=== PATIENT | female | born 1945 | race Caucasian/White ===

== ENCOUNTER 2019-08-13 09:04 | Outpatient (CLI) | payer MEDICARE, SELFPAY ==
--- NOTE | ~2019-08-13 | MM_ITS ---
EXAMINATION: MM screening [facility] BI w yesika HISTORY: Screening mammogram TECHNIQUE: Craniocaudal and mediolateral oblique 3-D tomosynthesis images were obtained and synthetic 2-D images were generated. CAD analysis was submitted and interpreted. COMPARISON: Comparison to multiple prior studies sequentially, with oldest reviewed study dated 12/02. BREAST PARENCHYMAL COMPOSITION: There are scattered areas of fibroglandular density. FINDINGS: There is no evidence of suspicious mass, calcification, or architectural distortion to sugg est malignancy in either breast. There has been no suspicious interval change. IMPRESSION: 1. No mammographic evidence of malignancy. 2. Recommend routine screening mammography in one year. BI-RADS Category 1: Negative Reviewed, dictated and finalized at location A. ER
== END 2019-08-13 09:05 | disposition home or self-care (01) ==
LOC: ANHIMG 09:07
PROVIDERS: PCP Family Medicine; Visit Provider Nurse Practitioner
DX: Z12.31 Encounter for screening mammogram for malignant neoplasm of breast (principal)
CPT/HCPCS: 77063; 77067

== ENCOUNTER 2019-08-21 08:34 | Outpatient (CLI) | payer MEDICARE, SELFPAY ==
--- NOTE | ~2019-08-21 | US_ITS ---
EXAMINATION: US right upper quadrant DATE: 08/21/2019 09:06 INDICATION: Right upper quadrant abdominal pain. TECHNIQUE: Multiple grayscale and Doppler ultrasound images of the abdomen were obtained. COMPARISON: Ultrasound 05/08/2017 FINDINGS: The visualized portions of the head, body, and tail of the pancreas are normal. The liver i s normal without focal lesion. There is normal flow in main portal vein. The gallbladder is normal in size. No gallstones or gallbladder wall thickening. There was no sonographic Shabazz sign. The common duct is normal and measures 3 mm. IMPRESSION: 1. Normal right upper quadrant ultrasound. Reviewed, dictated and finalized at location A. DESIGNER
[2019-08-21 10:37] LABS: Basophils Percent Auto 0.4 % (0.2-1.2); Eosinophils Percent Auto 0.2 % (0-4.4); Hematocrit 33.2 % (37.0-47.0); Hemoglobin 10.7 g/dL (12.0-15.0); Immature Granulocyte Percent A 1.9 % (0-0.5); Lymphocytes Absolute Auto 1.71 K/mm3 (0.9-3.2); Lymphocytes Percent Auto 31.8 % (18.3-44.2); Mean Corpuscular HGB Conc 32.2 g/dl (32-36); Mean Corpuscular Hemoglobin 29.6 pg (26-34); Mean Corpuscular Volume 91.7 fl (80-100); Mean Platelet Volume 10.8 fl (7.4-10.4); Monocytes Absolute Auto 1.7 K/mm3 (0.1-0.6); Monocytes Percent Auto 32.3 % (2.6-8.5); Neutrophils Absolute Auto 1.8 K/mm3 (1.3-6.7); Neutrophils Percent Auto 33.4 % (45.5-73.1); Platelet Count Result 215 k/mm3 (150-375); Red Blood Count 3.62 M/mm3 (4.2-5.4); Red Cell Distribution Width 13.7 % (11.5-14.5); White Blood Count 5.4 K/mm3 (4.5-10.0)
[2019-08-21 10:54] LABS: Alanine Aminotransferase 13 U/L (4-35); Albumin Level 4.1 g/dL (3.5-5.1); Alkaline Phosphatase 74 U/L (38-126); Aspartate Amino Transferase 21 U/L (14-36); Bilirubin,Total 0.5 mg/dL (0.2-1.3); Blood Urea Nitrogen 24 mg/dL (7-17); Calcium 9.3 mg/dL (8.4-10.2); Carbon Dioxide 30 mmol/L (22-30); Chloride 104 mmol/L (98-107); Estimated Glomerular Filt Rate > 60; Glucose 98 mg/dL (65-105); Potassium 4.2 mmol/L (3.4-5.0); Sodium 140 mmol/L (137-145)
== END 2019-08-21 08:35 | disposition home or self-care (01) ==
PROVIDERS: PCP Family Medicine; Visit Provider Nurse Practitioner Family
DX: R10.11 Right upper quadrant pain (principal)
CPT/HCPCS: 36415; 76705; 80053; 85025

== ENCOUNTER 2020-01-03 08:39 | Outpatient (CLI) | payer MEDICARE, SELFPAY ==
[2020-01-03 09:02] LABS: Basophils Percent Auto 0.5 % (0.2-1.2); Eosinophils Percent Auto 0.4 % (0-4.4); Hematocrit 36.2 % (37.0-47.0); Immature Granulocyte Absolute 0.05 K/mm3 (0.00-0.031); Immature Granulocyte Percent A 0.9 % (0-0.5); Lymphocytes Percent Auto 32.5 % (18.3-44.2); Mean Corpuscular HGB Conc 33.1 g/dl (32-36); Mean Corpuscular Hemoglobin 30.1 pg (26-34); Mean Corpuscular Volume 90.7 fl (80-100); Mean Platelet Volume 10.6 fl (7.4-10.4); Monocytes Absolute Auto 1.9 K/mm3 (0.1-0.6); Monocytes Percent Auto 33.4 % (2.6-8.5); Neutrophils Absolute Auto 1.8 K/mm3 (1.3-6.7); Neutrophils Percent Auto 32.3 % (45.5-73.1); Platelet Count Result 223 k/mm3 (150-375); Red Blood Count 3.99 M/mm3 (4.2-5.4); Red Cell Distribution Width 13.5 % (11.5-14.5); White Blood Count 5.5 K/mm3 (4.5-10.0)
[2020-01-03 09:20] LABS: Cholesterol 172 mg/dL (0-200); HDL Direct 48 mg/dL; Triglycerides 62 mg/dL (<150)
[2020-01-03 09:27] LABS: Immunoglobulin G 1149 mg/dL (700-1600)
[2020-01-03 09:32] LABS: LDL Cholesterol Direct 98 mg/dL
[2020-01-07 20:56] LABS: Beta-2-Microglobulin 2.47 mg/L (<=2.51)
[2020-01-07 21:41] LABS: Kappa\\Lambda Light Chains 0.25 (0.26-1.65); Lambda Light Chain 66.8 mg/L (5.7-26.3)
[2020-01-08 23:00] LABS: Abnormal Protein Band 1 0.6 g/dL; Albumin 4.2 g/dL (3.8-4.8); Alpha 1 Globulin 0.3 g/dL (0.2-0.3); Alpha 2 Globulin 0.8 g/dL (0.5-0.9); Beta 1 Globulin 0.5 g/dL (0.4-0.6); Gamma Globulin 1.1 g/dL (0.8-1.7); Protein, Total 7.3 g/dL (6.1-8.1)
== END 2020-01-03 08:40 | disposition home or self-care (01) ==
PROVIDERS: PCP Family Medicine; Referring Provider Internal Medicine Medical Oncology; Visit Provider Nurse Practitioner
DX: D47.2 Monoclonal gammopathy (principal); I10 Essential (primary) hypertension
CPT/HCPCS: 36415; 80061; 82232; 82784; 83883; 84155; 84165; 85025

== ENCOUNTER 2020-05-11 12:29 | Outpatient (NON) | payer MEDICARE, SELFPAY ==
[2020-05-14 17:04] LABS: SARS-CoV-2 RNA PCR Negative
== END 2020-05-11 12:30 ==
LOC: ANHCOVIDDT 12:31
PROVIDERS: PCP Family Medicine; Visit Provider Nurse Practitioner Family
DX: Z20.828 Contact with and (suspected) exposure to other viral communicable diseases (principal)
CPT/HCPCS: 87635; C9803; U0003

== ENCOUNTER → 2020-05-24 15:03 | Outpatient (CLI) | payer MEDICARE, SELFPAY ==
--- NOTE | ~2020-05-24 | XR_ITS ---
XR chest 2V DATE: 05/24/2020 15:25 INDICATION: Shortness of breath TECHNIQUE: PA and lateral views COMPARISON: None FINDINGS: There are ill- defined infiltrates and/or fibrotic changes overlying the right upper lung a nd left mid and both lower lung zones. Differential diagnosis includes bilateral pneumonia, bilateral scarring. Comparison with any prior available chest radiographs is recommended to differentiate acut e from chronic changes. If not available, consider CT thorax examination. Normal heart size. Aortic arch calcification and mild aortic unfolding. There is asymmetric prominence of the left hilar area which may be due to overlying infiltrate, altho ugh left hilar mass lesion or adenopathy or superimposed pulmonary mass lesion cannot be excluded. If this appearance is a new finding since prior radiographs or a prior radiograph are not available, CT thorax would be helpful to exclude mass lesion or lymphadenopathy. No pleural effusion or pneumothorax. IMPRESSION: Bilateral pulmonary infiltrates and/or fibrotic change; cannot exclude left hilar mass or adenopathy or superimposed lung mass. CT thorax examination is recommended if prior radiograph are n ot available for comparison Reviewed, dictated and finalized at location A. NT SUPPORT PROFESSIONAL IMPRESSION: Bilateral pulmonary infiltrates and/or fibrotic change; cannot excl ude left hilar mass or adenopathy or superimposed lung mass. CT thorax examinat ion is recommended if prior radiograph are not available for comparison
== END ==
PROVIDERS: PCP Family Medicine; Visit Provider Nurse Practitioner Family
DX: R06.02 Shortness of breath (principal); I70.0 Atherosclerosis of aorta
CPT/HCPCS: 71046

== ENCOUNTER → 2020-05-27 14:16 | Outpatient (CLI) | payer MEDICARE, SELFPAY ==
--- NOTE | ~2020-05-27 | CT_ITS ---
EXAMINATION: CT chest w con DATE: 05/27/2020 14:46 INDICATION: Shortness of breath, abnormal chest radiograph TECHNIQUE: Transaxial computed tomographic images of the chest were obtained after the administration of 75 cc of Omnipaque 350 intravenous contrast. The dose-length product (DLP) was 187.34 mGy-cm. Ite rative reconstruction was used. COMPARISON: Chest x-ray, 05/24/2020 FINDINGS: There is a 3.5 x 2.3 cm irregular mass of the right upper lobe with internal air bronchogra ms. There are large areas of groundglass opacity in the left upper lobe and bilateral lower lobes. Th eir is no pleural effusion or pneumothorax. No pathologically enlarged thoracic lymph nodes are ident ified. The heart size is normal. Calcified coronary artery atherosclerosis is noted. IMPRESSION: 1. Right upper lobe mass and large areas of groundglass opacity in the lower lobes and left upper lob e. Findings could reflect multifocal pneumonia. Would recommend follow-up CT in one month and if find ings are unchanged, right upper lobe biopsy would be recommended as malignancy can have a similar maurice earance. Reviewed, dictated and finalized at location A. FACTURING LEAD IMPRESSION: 1. Right upper lobe mass and large areas of groundglass opacity in the lower lo bes and left upper lobe. Findings could reflect multifocal pneumonia. Would rec ommend follow-up CT in one month and if findings are unchanged, right upper lob e biopsy would be recommended as malignancy can have a similar appearance.
[2020-05-27 14:35] LABS: Estimated Glomerular Filt Rate > 60
== END ==
PROVIDERS: PCP Family Medicine; Visit Provider Nurse Practitioner Family
DX: R91.8 Other nonspecific abnormal finding of lung field (principal)
CPT/HCPCS: 71260; Q9967

== ENCOUNTER 2020-06-01 07:28 | Outpatient (CLI) | payer MEDICARE, SELFPAY ==
--- NOTE | ~2020-06-01 | US_ITS ---
EXAMINATION: US carotid duplex BI DATE: 06/01/2020 08:14 INDICATION: Carotid artery stenosis and occlusion TECHNIQUE: Grayscale, color Doppler, and pulsed Doppler images of the cervical carotid arteries were obtained. The degree of vessel stenosis is placed in one of the following categories: normal, <50%, 5 0-69%, >=70% but less than near-occlusion, near-occlusion, or total occlusion. Note that percent sten osis relative to normal distal artery lumen diameter is indirectly measured from velocity measurement s as described by Abimael, et al. Radiology 2003; [id number]:340-346. COMPARISON: None. FINDINGS: RIGHT: The right common carotid artery (CCA) peak systolic velocity (PSV) is 87 cm/s. The right internal car otid artery (ICA) PSV is 123 cm/s. The right ICA end-diastolic velocity (EDV) is 25 cm/s. The right I CA/CCA PSV ratio is 1.4. Grayscale and color Doppler images yield an estimate of <50% diameter reduct ion from plaque in the ICA. The external carotid artery (ECA) PSV is 116 cm/s. There is antegrade jaylon w in the right vertebral artery. LEFT: The left CCA PSV is 112 cm/s. The left ICA PSV is 165 cm/s. The left ICA EDV is 35 cm/s. The left ICA /CCA PSV ratio is 1.5. Grayscale and color Doppler images yield an estimate of 50-69% diameter reduct ion from plaque in the ICA. The ECA PSV is 279 cm/s. There is antegrade flow in the left vertebral ar jose c. IMPRESSION: 1. <50% stenosis in the right internal carotid artery. 2. 50-69% stenosis in the left internal carotid artery. Reviewed, dictated and finalized at location B. TARY AIDE
== END 2020-06-01 07:29 | disposition home or self-care (01) ==
PROVIDERS: PCP Family Medicine; Visit Provider Nurse Practitioner Family
DX: I65.22 Occlusion and stenosis of left carotid artery (principal)
CPT/HCPCS: 93880

== ENCOUNTER → 2020-07-05 14:24 | Outpatient (CLI) | payer MEDICARE, SELFPAY ==
--- NOTE | ~2020-07-05 | CT_ITS ---
EXAMINATION: CT chest w con DATE: 07/05/2020 15:13 INDICATION: Other nonspecific abnormal finding of the lung field TECHNIQUE: Transaxial computed tomographic images of the chest were obtained after the administration of 75 cc of Omnipaque 350 intravenous contrast. The dose-length product (DLP) was 154.91 mGy-cm. Ite rative reconstruction was used. COMPARISON: 05/27/2020 FINDINGS: There is a persistent 3.5 x 2.6 cm irregular mass of the right upper lobe. Previously descr ibed areas of groundglass opacity in the lower lobes and left upper lobe have nearly completely resol abram. There is no pleural effusion or pneumothorax. No pathologically enlarged thoracic lymph nodes ar e identified. The heart size is normal. There is mild thoracic spondylosis. Calcified coronary artery atherosclerosis is noted. There is a 3.6 cm cyst of the left kidney upper pole. IMPRESSION: 1. Persistent right upper lobe mass concerning for primary bronchogenic carcinoma. CT-guided biopsy i s recommended. 2. Improving groundglass opacities of the lungs, consistent with resolving pneumonia. Reviewed, dictated and finalized at location A. DATION RELATIONS MANAGER IMPRESSION: 1. Persistent right upper lobe mass concerning for primary bronchogenic carcino ma. CT-guided biopsy is recommended. 2. Improving groundglass opacities of the lungs, consistent with resolving pneu monia.
[2020-07-05 15:02] LABS: Estimated Glomerular Filt Rate 54
== END ==
PROVIDERS: PCP Family Medicine; Visit Provider Nurse Practitioner Family
DX: R91.8 Other nonspecific abnormal finding of lung field (principal)
CPT/HCPCS: 71260; Q9967

== ENCOUNTER 2020-07-16 00:26 | Outpatient (CLI) | payer MEDICARE, SELFPAY ==
[2020-07-16 19:17] LABS: SARS-CoV-2 RNA PCR Negative
== END 2020-07-16 00:27 | disposition home or self-care (01) ==
LOC: ANHCOVIDDT 00:28
PROVIDERS: PCP Family Medicine; Visit Provider Nurse Practitioner Family
DX: R91.8 Other nonspecific abnormal finding of lung field (principal); Z20.822 Contact with and (suspected) exposure to COVID-19
CPT/HCPCS: C9803; U0003; U0005

== ENCOUNTER 2020-07-19 09:11 | Outpatient (CLI) | payer MEDICARE, SELFPAY ==
[2020-07-16 09:34] VITALS: BMI 26.2
[2020-07-19] VITALS (9 sets, daily range): BP systolic 132–151; BP diastolic 53–70; PULSE 62–84; RESP 14–16; O2SAT 97–100
--- NOTE | ~2020-07-19 | XR_ITS ---
EXAMINATION: XR chest 1V portable DATE: 07/19/2020 14:07 INDICATION: Right lung upper lobe mass status post percutaneous biopsy. TECHNIQUE: A single frontal view of the chest was obtained. COMPARISON: Chest single view at 12:01 PM FINDINGS: There is a mass in right lung upper lobe. No pleural effusion or pneumothorax. The heart si ze is normal. IMPRESSION: 1. Mass in right lung upper lobe suspicious for primary bronchogenic carcinoma. Reviewed, dictated and finalized at location A. TROTHERAPIST
--- NOTE | ~2020-07-19 | XR_ITS ---
XR chest 1V portable DATE: 07/19/2020 12:06 INDICATION: Post image guided lung biopsy TECHNIQUE: Portable upright AP chest [address]-guided percutaneous needle biopsy of the rig ht upper lobe mass COMPARISON: Numerous CDT biopsy lung imaging 05/24/2022 view chest FINDINGS: Again noted is an abnormal asymmetric opacity overlying the right upper lobe. No pneumothor ax or pleural fluid is evident post CT-guided percutaneous biopsy of the lung. Normal heart size. Aortic calcification and mild unfolding. Diffuse osteopenia. IMPRESSION: No evidence of iatrogenic pneumothorax one hour post CT-guided percutaneous needle biopsy of right upper lobe mass Reviewed, dictated and finalized at location A. IO HAND IMPRESSION: No evidence of iatrogenic pneumothorax one hour post CT-guided perc utaneous needle biopsy of right upper lobe mass
--- NOTE | ~2020-07-19 | XR_ITS ---
EXAMINATION: XR chest 1V DATE: 07/19/2020 10:56 INDICATION: Right lung mass status post percutaneous biopsy. TECHNIQUE: A single frontal view of the chest was obtained. COMPARISON: Chest CT 07/05/2020 FINDINGS: There is a mass in right lung upper lobe. No pleural effusion or pneumothorax. The heart si ze is normal. IMPRESSION: 1. Mass in right lung upper lobe suspicious for primary bronchogenic carcinoma. Reviewed, dictated and finalized at location A. HER
--- NOTE | ~2020-07-19 | CT_ITS ---
EXAMINATION: CT biopsy lung w/imaging DATE: 07/19/2020 10:50 INDICATION: Right lung mass. TECHNIQUE: The procedure including the risks, benefits, and alternatives and possibility of chest tub e placement were discussed with the patient. Risks discussed included infection, approximately 1/20 r isk of symptomatic hemorrhage beyond mild hemoptysis, approximately 1/3 risk of pneumothorax, approxi mately 1/10 risk of pneumothorax severe enough to warrant chest tube placement, and rarely . The patient understood the risks and agreed to proceed. The patient was placed supine. The skin overlyi ng the right chest was prepped and draped in sterile fashion. Anesthetic was administered with 1% li docaine subcutaneously. A 19 gauge outer needle was advanced under CT guidance to the lesion of inte rest. A 20 gauge core biopsy needle was then used to obtain 3 core biopsy specimens. The needle was r emoved and the entry site was cleaned and dressed. The mA was adjusted according to patient size. Ite rative reconstruction technique was employed. The dose-length product was 100.11 mGy-cm. There were no immediate complications. FINDINGS: CT images demonstrate the outer needle tip adjacent to a 3.2 x 2.3 cm mass in right lung up per lobe. IMPRESSION: 1. CT-guided core needle biopsy of a mass in right lung upper lobe. Reviewed, dictated and finalized at location A. UREMENT COST COORDINATOR
[2020-07-19 09:35] LABS: Mean Platelet Volume 10.4 fl (7.4-10.4); Platelet Count Result 230 k/mm3 (150-375)
[2020-07-19 09:49] LABS: Prothrombin Time 13.4 Seconds (11.1-14.7)
--- NOTE | 2020-07-19 15:15 | SUR.PHASEII ---
[address] FORTE ON PT CONDITON AND FINAL CHEST XRAY. PT VITAL SIGNS STABLE, NO PAIN, BREATHING IS GOOD ON ROOM AIR. PER DR FORTE PT IS OK FOR DISCHARGE
== END 2020-07-19 14:55 | disposition home or self-care (01) ==
PROVIDERS: Radiology Diagnostic Radiology; PCP Family Medicine; Visit Provider Nurse Practitioner Family
DX: R91.8 Other nonspecific abnormal finding of lung field (principal); C34.11 Malignant neoplasm of upper lobe, right bronchus or lung
CPT/HCPCS: 32408; 36415; 71045; 85049; 85610; 88305

== ENCOUNTER 2020-07-29 16:10 | Outpatient (CLI) | payer MEDICARE, SELFPAY ==
[2020-07-29 17:04] LABS: Hematocrit 33.3 % (37.0-47.0); Mean Corpuscular Hemoglobin 30.3 pg (26-34); Mean Corpuscular Volume 91.7 fl (80-100); Mean Platelet Volume 10.6 fl (7.4-10.4); Platelet Count Result 217 k/mm3 (150-375); Red Blood Count 3.63 M/mm3 (4.2-5.4); Red Cell Distribution Width 13.3 % (11.5-14.5)
[2020-07-29 17:18] LABS: Alanine Aminotransferase 12 U/L (4-35); Albumin Level 4.3 g/dL (3.5-5.1); Alkaline Phosphatase 76 U/L (38-126); Anion Gap 8 mmol/L (8-16); Aspartate Amino Transferase 24 U/L (14-36); Bilirubin,Total 0.4 mg/dL (0.2-1.3); Blood Urea Nitrogen 20 mg/dL (7-17); Calcium 9.3 mg/dL (8.4-10.2); Carbon Dioxide 30 mmol/L (22-30); Chloride 105 mmol/L (98-107); Estimated Glomerular Filt Rate > 60; Glucose 97 mg/dL (65-105); Potassium 4.1 mmol/L (3.4-5.0); Sodium 143 mmol/L (137-145)
[2020-07-29 17:27] LABS: Band Neutrophils Percent 2 % (0-6); Lymphocytes Absolute Manual 2.64 K/mm3 (1.1-4.5); Monocytes Absolute Manual 1.08 K/mm3 (0.1-0.90); Monocytes Percent Manual 18 % (3-9); Neutrophils Absolute Manual 2.28 K/mm3 (1.7-7.2); Neutrophils Percent Manual 36 % (46-73); Platelet Estimate Adequate (Adequate); Total Cells Counted 100
== END 2020-07-29 16:11 | disposition home or self-care (01) ==
LOC: ANHLAB 16:14
PROVIDERS: PCP Family Medicine; Visit Provider Internal Medicine Hematology & Oncology
DX: C34.91 Malignant neoplasm of unspecified part of right bronchus or lung (principal)
CPT/HCPCS: 36415; 80053; 85025

== ENCOUNTER 2020-08-02 08:43 | Outpatient (CLI) | payer MEDICARE, SELFPAY ==
--- NOTE | 2020-08-09 12:50 | WPDPFTINT ---
PFT Interpretation This is a pulmonary function test with pre and post-bronchodilator spirometry, plethysmography and diffusing capacity. The test was performed and results interpreted in accordance with the 2019 and 2005 ATS/ERS Task Force guidelines respectively using the Filiberto/Geri reference equations. Findings: Spirometry: The contour of the inspiratory and expiratory flow tracing are normal. The pre bronchodilator FVC is 2.63 L, 102% predicted. The FEV1 pre bronchodilator FEV1 is 1.89 L, 107% predicted. The FEV1: FVC ratio 72%. The post bronchodilator FVC is 2.54 L, representing a 3% decrease. The post bronchodilator FEV1 is 1.64 L, representing a 13% decrease. Plethysmography: The total lung capacity is 3.57 L, 78% predicted. The functional residual capacity is 0.80 L, 31% predicted. The residual volume is 0.78 L, 41% predicted. Diffusing capacity: The absolute diffusion capacity is 11.9, 66% predicted. The diffusing capacity corrected for alveolar volume is 3.18, 92% predicted. Impression: There is a mild restrictive ventilatory abnormality with a normal FEV1. The spirometry is normal without evidence of an obstructive abnormality. There is no significant improvement after inhaling a single dose of albuterol. The absolute diffusing capacity is mildly decreased and normalizes when corrected for alveolar volume. There are no prior studies for comparison
== END 2020-08-02 08:44 | disposition home or self-care (01) ==
PROVIDERS: PCP Family Medicine; Visit Provider Internal Medicine Hematology & Oncology
DX: C34.91 Malignant neoplasm of unspecified part of right bronchus or lung (principal)
CPT/HCPCS: 94060; 94726; 94729

== ENCOUNTER 2020-08-05 13:33 | Outpatient (CLI) | payer MEDICARE, OTHER, SELFPAY ==
--- NOTE | ~2020-08-05 | PE_ITS ---
EXAMINATION: PET skull to mid thigh DATE: 08/05/2020 15:28 INDICATION: Malignant neoplasm of the right upper lobe TECHNIQUE: Blood glucose level was 102 mg/dL. 9.24 mCi of 18-fluorodeoxyglucose (18-FDG) was administ ered i.v. Low dose computed tomography (CT) images were acquired from the base of the brain to the pr oximal thighs for attenuation correction and anatomic localization. Positron emission tomography (PET ) images were acquired in the same distribution beginning 52 minutes after injection. The dose-length product (DLP) was 458.08 mGy-cm. COMPARISON: CT, 07/05/2020 FINDINGS: Head/neck: No abnormal FDG uptake is identified. FDG uptake in the oral cavity without suspicious CT correlate is likely physiologic. There are no pathologically enlarged cervical lymph nodes. Chest: There is a 3.5 x 2.3 cm irregular mass of the right upper lobe with abnormal FDG uptake and PALACIO V max of 2.2. No additional suspicious lung mass or nodule is identified. There is no pleural effusio n or pneumothorax. No pathologically enlarged thoracic lymph nodes are identified. The heart size is normal. Calcified coronary artery atherosclerosis is noted. Abdomen/pelvis/proximal thighs: No abnormal FDG uptake is identified. Physiologic FDG activity is pre sent in the bowel and urinary tract. The liver, spleen, pancreas, gallbladder, and adrenal glands are normal. There is a 3.5 cm cyst of the left kidney upper pole. No pathologically enlarged abdominal o r pelvic lymph nodes are identified. There is no free intraperitoneal gas or evidence of bowel obstru ction. There is calcified atherosclerosis of the aorta and many of the other arteries. Musculoskeletal: No abnormal FDG uptake is identified. There is severe cervical spondylosis and sever e lumbar spondylosis at L5-S1. There is moderate thoracic and thoracolumbar spondylosis. IMPRESSION: 1. Right upper lobe mass with abnormal FDG uptake, consistent with biopsy-proven well-differentiated adenocarcinoma. No evidence of metastatic disease. Reviewed, dictated and finalized at location A. OVER RIG OPERATOR IMPRESSION: 1. Right upper lobe mass with abnormal FDG uptake, consistent with biopsy-prove n well-differentiated adenocarcinoma. No evidence of metastatic disease.
[2020-08-05 14:10] LABS: Glucose Point of Care 102 (65-105)
== END 2020-08-05 13:34 | disposition home or self-care (01) ==
PROVIDERS: PCP Family Medicine; Visit Provider Internal Medicine Hematology & Oncology
DX: C34.11 Malignant neoplasm of upper lobe, right bronchus or lung (principal)
CPT/HCPCS: 78815; 82948; A9552

== ENCOUNTER 2020-08-09 09:36 | Outpatient (CLI) | payer MEDICARE, SELFPAY ==
--- NOTE | ~2020-08-09 | MM_ITS ---
EXAMINATION: MM screening [facility] BI w yesika HISTORY: Screening mammogram TECHNIQUE: Craniocaudal and mediolateral oblique 3-D tomosynthesis images were obtained and synthetic 2-D images were generated. CAD analysis was submitted and interpreted. COMPARISON: 08/13/2019, 07/24/2018, 06/29/2017 BREAST PARENCHYMAL COMPOSITION: The breasts are heterogeneously dense, which may obscure small masses . FINDINGS: There is no evidence of suspicious mass, calcification, or architectural distortion to sugg est malignancy in either breast. There has been no suspicious interval change. IMPRESSION: 1. No mammographic evidence of malignancy. 2. Recommend routine screening mammography in one year. BI-RADS Category 1: Negative Reviewed, dictated and finalized at location A. UNTANT
== END 2020-08-09 09:37 | disposition home or self-care (01) ==
LOC: ANHIMG 09:43
PROVIDERS: PCP Family Medicine; Visit Provider Family Medicine
DX: Z12.31 Encounter for screening mammogram for malignant neoplasm of breast (principal)
CPT/HCPCS: 77063; 77067

== ENCOUNTER → 2020-10-23 10:48 | Outpatient (CLI) | payer MEDICARE, SELFPAY ==
--- NOTE | ~2020-10-23 | MR_ITS ---
EXAMINATION: MR lumbar spine wo con DATE: 10/23/2020 11:39 INDICATION: Lumbar radiculopathy. Chronic low back pain. TECHNIQUE: Magnetic resonance imaging (MRI) of the lumbar spine was performed without intravenous con trast. Sequences included sagittal T2-weighted FSE, sagittal T2-weighted FS FSE, sagittal T1-weighted FSE, and axial T2-weighted FSE. COMPARISON: Lumbar spine MRI 03/14/2012 FINDINGS: There is 6 degrees levocurvature of lumbar spine. There is 3 mm anterolisthesis of L4 on L5 and 3 mm retrolisthesis of L5 on S1. There are Schmorl's nodes at most levels. There is moderately d ecreased disc height at L1-L2, mildly decreased disc height from L2-L3 through L4-L5, and severely de creased disc height at L5-S1. There is ligamentum flavum hypertrophy at the disc levels from L1-L2 th rough L4-L5. The distal spinal cord signal intensity is normal. The conus medullaris is at L1. There is a 3.6 cm cyst in left kidney. The following disc levels are specifically discussed: L1-L2: The disc is bulging and has an annular fissure. There is severe right and moderate left facet joint osteoarthritis. There is mild bilateral neural foraminal stenosis. There is mild central canal stenosis. L2-L3: The disc is bulging. There is severe bilateral facet joint osteoarthritis. There is mild bilat eral neural foraminal stenosis. There is mild central canal stenosis. L3-L4: The disc is bulging. There is severe bilateral facet joint osteoarthritis. There is mild bilat eral neural foraminal stenosis. There is mild central canal stenosis. L4-L5: The disc is bulging and has an annular fissure. There is severe bilateral facet joint osteoart hritis. There is moderate bilateral neural foraminal stenosis. There is severe central canal stenosis . L5-S1: The disc is bulging and has an annular fissure. There is severe bilateral facet joint osteoart hritis. There is moderate bilateral neural foraminal stenosis. There is no central canal stenosis. IMPRESSION: 1. Severe lumbar spondylosis, worsened from 03/14/2012. Reviewed, dictated and finalized at location A.
== END ==
PROVIDERS: PCP Family Medicine; Visit Provider Nurse Practitioner Adult Health
DX: M47.26 Other spondylosis with radiculopathy, lumbar region (principal)
CPT/HCPCS: 72148

== ENCOUNTER 2020-12-01 10:38 | Outpatient (CLI) | payer MEDICARE, SELFPAY ==
[2020-12-01 11:12] LABS: Basophils Percent Auto 0.6 % (0.2-1.2); Eosinophils Absolute Auto 0.1 K/mm3 (0-0.3); Eosinophils Percent Auto 1.1 % (0-4.4); Hematocrit 38.7 % (37.0-47.0); Hemoglobin 12.5 g/dL (12.0-15.0); Immature Granulocyte Absolute 0.06 K/mm3 (0.00-0.031); Immature Granulocyte Percent A 1.1 % (0-0.5); Lymphocytes Absolute Auto 1.74 K/mm3 (0.9-3.2); Lymphocytes Percent Auto 32.1 % (18.3-44.2); Mean Corpuscular HGB Conc 32.3 g/dl (32-36); Mean Corpuscular Hemoglobin 28.9 pg (26-34); Mean Corpuscular Volume 89.4 fl (80-100); Mean Platelet Volume 10.4 fl (7.4-10.4); Neutrophils Absolute Auto 1.6 K/mm3 (1.3-6.7); Neutrophils Percent Auto 29.1 % (45.5-73.1); Platelet Count Result 259 k/mm3 (150-375); Red Blood Count 4.33 M/mm3 (4.2-5.4); Red Cell Distribution Width 13.4 % (11.5-14.5); White Blood Count 5.4 K/mm3 (4.5-10.0)
[2020-12-01 11:22] LABS: Atypical Lymphocytes Present; Platelet Estimate Adequate (Adequate)
[2020-12-01 12:35] LABS: Alanine Aminotransferase 11 U/L (4-35); Albumin Level 4.4 g/dL (3.5-5.1); Alkaline Phosphatase 72 U/L (38-126); Anion Gap 11 mmol/L (8-16); Aspartate Amino Transferase 19 U/L (14-36); Bilirubin,Total 0.5 mg/dL (0.2-1.3); Blood Urea Nitrogen 27 mg/dL (7-17); Calcium 9.8 mg/dL (8.4-10.2); Carbon Dioxide 28 mmol/L (22-30); Chloride 102 mmol/L (98-107); Estimated Glomerular Filt Rate 54; Glucose 113 mg/dL (65-105); Potassium 3.9 mmol/L (3.4-5.0); Sodium 141 mmol/L (137-145)
== END 2020-12-01 10:39 | disposition home or self-care (01) ==
LOC: ANHLAB 10:55
PROVIDERS: PCP Family Medicine; Visit Provider Internal Medicine Hematology & Oncology
DX: C34.11 Malignant neoplasm of upper lobe, right bronchus or lung (principal)
CPT/HCPCS: 36415; 80053; 85025

== ENCOUNTER 2020-12-07 09:36 | Outpatient (CLI) | payer MEDICARE, SELFPAY ==
--- NOTE | ~2020-12-07 | CT_ITS ---
EXAMINATION: CT diagnostic chest w con DATE: 12/07/2020 10:17 INDICATION: Lung cancer TECHNIQUE: Computed tomography (CT) of the chest was performed with 75 cc Omnipaque 350 intravenous c ontrast. The dose-length product was 127.11 mGy-cm. Automated exposure control and iterative reconstr uction technique were employed. COMPARISON: Pet/CT dated 07/19/2020 FINDINGS: Trace right pleural effusion. Heart size is normal. No thoracic lymphadenopathy. No filling defects in the pulmonary arteries. Small hiatal hernia with thickening of the esophagus. There are b ilateral renal cysts. The mass in the right upper lobe is not definitely visualized on the current st udy, possibly surgically absent. Correlate for surgical history. No endobronchial lesions. No endobro nchial lesions. There is a subsolid 4 mm nodule in the right lower lobe, likely benign.. IMPRESSION: 1. Previously visualized right upper lobe mass not identified on current study, possibly surgically a bsent. Clinically correlate. 2: Trace right pleural effusion. 3: Subsolid 4 mm right lower lobe nodule, likely benign. Follow-up CT in 6-12 months recommended. Reviewed, dictated and finalized at location B. IMPRESSION: 1. Previously visualized right upper lobe mass not identified on current study, possibly surgically absent. Clinically correlate. 2: Trace right pleural effusion. 3: Subsolid 4 mm right lower lobe nodule, likely benign. Follow-up CT in 6-12 months recommended.
== END 2020-12-07 09:37 | disposition home or self-care (01) ==
PROVIDERS: PCP Family Medicine; Visit Provider Internal Medicine Hematology & Oncology
DX: C34.11 Malignant neoplasm of upper lobe, right bronchus or lung (principal); R91.1 Solitary pulmonary nodule
CPT/HCPCS: 71260; Q9967

== ENCOUNTER 2021-03-09 08:29 | Outpatient (CLI) | payer MEDICARE, SELFPAY ==
--- NOTE | ~2021-03-09 | CT_ITS ---
EXAMINATION: CT diagnostic chest w con EXAM DATE: 03/09/2021 09:18 INDICATION: Right upper lobe cancer. TECHNIQUE: Spiral CT of the chest following intravenous injection of 75 mL Omnipaque 350. Axial, cor onal and sagittal images of the chest were reviewed. Coronal maximum intensity pixel images of chest reviewed. The dose-length product (DLP) for this examination was 146.52 mGy-cm. The exposure was t ailored according to patient size (auto mA exposure control), and iterative reconstruction (ASIR) was used as additional dose reduction technique. Comparison is made to prior examination from 12/07/2020. FINDINGS: Surgical changes from right upper lobectomy, stable. Subsolid right lower lobe 4 mm nodule unchanged, probably postinfectious. There are no pleural or pericardial effusions. Tracheobronchia l tree is patent. There is no mediastinal, hilar or axillary lymphadenopathy. There is no pneumot horax. Heart normal in size. There is moderate coronary arterial calcification, arterial sclerosi s. Left renal lesion consistent with 3.5 cm cyst. There is thoracic spondylosis without osteoblasti c or osteolytic lesions identified. IMPRESSION: Stable exam. No suspicious findings. Reviewed, dictated and finalized at location B.
[2021-03-09 09:12] LABS: Estimated Glomerular Filt Rate 48
== END 2021-03-09 08:30 | disposition home or self-care (01) ==
PROVIDERS: PCP Family Medicine; Visit Provider Internal Medicine Medical Oncology
DX: C34.11 Malignant neoplasm of upper lobe, right bronchus or lung (principal); N28.1 Cyst of kidney, acquired
CPT/HCPCS: 71260; Q9967

== ENCOUNTER 2021-03-09 09:50 | Outpatient (CLI) | payer MEDICARE, SELFPAY ==
[2021-03-09 10:24] LABS: Basophils Percent Auto 0.5 % (0.2-1.2); Eosinophils Absolute Auto 0.1 K/mm3 (0-0.3); Eosinophils Percent Auto 1.1 % (0-4.4); Hematocrit 31.3 % (37.0-47.0); Hemoglobin 10.5 g/dL (12.0-15.0); Immature Granulocyte Absolute 0.08 K/mm3 (0.00-0.031); Immature Granulocyte Percent A 1.4 % (0-0.5); Lymphocytes Absolute Auto 1.13 K/mm3 (0.9-3.2); Mean Corpuscular HGB Conc 33.5 g/dl (32-36); Mean Corpuscular Volume 89.4 fl (80-100); Mean Platelet Volume 10.1 fl (7.4-10.4); Monocytes Absolute Auto 1.8 K/mm3 (0.1-0.6); Neutrophils Absolute Auto 2.6 K/mm3 (1.3-6.7); Platelet Count Result 233 k/mm3 (150-375); White Blood Count 5.7 K/mm3 (4.5-10.0)
[2021-03-09 12:33] LABS: Alanine Aminotransferase 10 U/L (4-35); Albumin Level 4.6 g/dL (3.5-5.1); Alkaline Phosphatase 90 U/L (38-126); Anion Gap 9 mmol/L (8-16); Aspartate Amino Transferase 44 U/L (14-36); Bilirubin,Total 0.4 mg/dL (0.2-1.3); Blood Urea Nitrogen 24 mg/dL (7-17); Calcium 9.4 mg/dL (8.4-10.2); Carbon Dioxide 33 mmol/L (22-30); Chloride 96 mmol/L (98-107); Estimated Glomerular Filt Rate 54; Glucose 101 mg/dL (65-110); Potassium 3.7 mmol/L (3.4-5.0); Sodium 138 mmol/L (137-145)
[2021-03-09 12:43] LABS: Immunoglobulin A 333 mg/dL (70-400); Immunoglobulin G 1263 mg/dL (700-1600); Immunoglobulin M 69 mg/dL (40-230)
[2021-03-13 06:59] LABS: Abnormal Protein Band 1 0.7 g/dL; Albumin 4.1 g/dL (3.8-4.8); Alpha 1 Globulin 0.3 g/dL (0.2-0.3); Beta 1 Globulin 0.4 g/dL (0.4-0.6); Gamma Globulin 1.1 g/dL (0.8-1.7); Protein, Total 7.3 g/dL (6.1-8.1)
== END 2021-03-09 09:51 | disposition home or self-care (01) ==
LOC: ANHLAB 10:01
PROVIDERS: PCP Family Medicine; Visit Provider Internal Medicine Hematology & Oncology
DX: D47.2 Monoclonal gammopathy (principal)
CPT/HCPCS: 36415; 71260; 80053; 82784; 84155; 84165; 85025; Q9967

== ENCOUNTER 2021-06-13 08:59 | Outpatient (CLI) | payer MEDICARE, SELFPAY ==
--- NOTE | ~2021-06-13 | CT_ITS ---
EXAMINATION: CT diagnostic chest w con DATE: 06/13/2021 10:27 INDICATION: Malignant neoplasm of the upper lobe of the right lung TECHNIQUE: Transaxial computed tomographic images of the chest were obtained after the administration of 75 cc of Omnipaque 350 intravenous contrast. The dose-length product (DLP) was 144.19 mGy-cm. Ite rative reconstruction was used. COMPARISON: 03/09/2021, 12/07/2020 FINDINGS: There are stable changes of right upper lobectomy. There is a stable 4 mm nodule of the rig ht lower lobe on image 84. No new pulmonary nodules are identified. The lungs are free of acute opaci ties. There is no pleural effusion or pneumothorax. No pathologically enlarged thoracic lymph nodes a re identified. The heart size is normal. There is a 3.7 cm cyst of the left kidney. IMPRESSION: 1. Stable changes of right upper lobectomy without evidence of metastatic disease. Reviewed, dictated and finalized at location F. DING MAINTENANCE CUSTODIAN IMPRESSION: 1. Stable changes of right upper lobectomy without evidence of metastatic disea se.
[2021-06-13 10:19] LABS: Estimated Glomerular Filt Rate 54
[2021-06-13 10:47] LABS: Basophils Percent Auto 0.4 % (0.2-1.2); Eosinophils Absolute Auto 0.1 K/mm3 (0-0.3); Eosinophils Percent Auto 1.2 % (0-4.4); Hematocrit 33.6 % (37.0-47.0); Hemoglobin 11.1 g/dL (12.0-15.0); Immature Granulocyte Absolute 0.05 K/mm3 (0.00-0.031); Lymphocytes Percent Auto 24.9 % (18.3-44.2); Mean Corpuscular Hemoglobin 29.8 pg (26-34); Mean Corpuscular Volume 90.3 fl (80-100); Mean Platelet Volume 9.9 fl (7.4-10.4); Monocytes Absolute Auto 1.9 K/mm3 (0.1-0.6); Monocytes Percent Auto 38.8 % (2.6-8.5); Neutrophils Absolute Auto 1.6 K/mm3 (1.3-6.7); Neutrophils Percent Auto 33.7 % (45.5-73.1); Platelet Count Result 261 k/mm3 (150-375); Red Blood Count 3.72 M/mm3 (4.2-5.4); Red Cell Distribution Width 13.1 % (11.5-14.5); White Blood Count 4.8 K/mm3 (4.5-10.0)
[2021-06-13 10:59] LABS: Alanine Aminotransferase 18 U/L (4-35); Albumin Level 4.4 g/dL (3.5-5.1); Alkaline Phosphatase 99 U/L (38-126); Anion Gap 9 mmol/L (8-16); Aspartate Amino Transferase 26 U/L (14-36); Bilirubin,Total 0.3 mg/dL (0.2-1.3); Blood Urea Nitrogen 21 mg/dL (7-17); Calcium 9.5 mg/dL (8.4-10.2); Carbon Dioxide 28 mmol/L (22-30); Chloride 95 mmol/L (98-107); Cholesterol 169 mg/dL (0-200); Estimated Glomerular Filt Rate 54; Glucose 121 mg/dL (65-110); HDL Direct 38 mg/dL; Sodium 132 mmol/L (137-145); Triglycerides 122 mg/dL (<150)
[2021-06-13 11:10] LABS: LDL Cholesterol Direct 94 mg/dL
[2021-06-13 11:16] LABS: Iron 54 ug/dL (37-170)
[2021-06-13 11:25] LABS: Percent Iron Saturation 15 % (20-50)
[2021-06-13 11:36] LABS: Vitamin D 25 Hydroxy 55.5 ng/mL
[2021-06-13 12:10] LABS: Folic Acid 16.4 ng/mL (2.76->20); Vitamin B12 > 1000.0 pg/mL (239-931)
== END 2021-06-13 09:00 | disposition home or self-care (01) ==
PROVIDERS: PCP Family Medicine; Visit Provider Internal Medicine Hematology & Oncology
DX: I48.91 Unspecified atrial fibrillation (principal); I10 Essential (primary) hypertension; E55.9 Vitamin D deficiency, unspecified; R73.9 Hyperglycemia, unspecified; C34.11 Malignant neoplasm of upper lobe, right bronchus or lung; D64.9 Anemia, unspecified
CPT/HCPCS: 36415; 71260; 80053; 80061; 82306; 82607; 82728; 82746; 83036; 83540; 83550; 84443; 85025; Q9967

== ENCOUNTER 2021-08-31 13:23 | Outpatient (CLI) | payer MEDICARE, SELFPAY ==
--- NOTE | ~2021-08-31 | MM_ITS ---
EXAMINATION: MM screening [facility] BI w yesika HISTORY: Screening mammogram TECHNIQUE: Craniocaudal and mediolateral oblique 3-D tomosynthesis images were obtained and synthetic 2-D images were generated. CAD analysis was submitted and interpreted. COMPARISON: 08/09/2020, 08/13/2019, 07/24/2018 BREAST PARENCHYMAL COMPOSITION: There are scattered areas of fibroglandular density. FINDINGS: There is no suspicious mass, calcification, or architectural distortion to suggest malignan cy in either breast. There has been no suspicious interval change. IMPRESSION: 1. No mammographic evidence of malignancy. 2. Recommend routine screening mammography in one year. BI-RADS Category 1: Negative Reviewed, dictated and finalized at location A.
== END 2021-08-31 13:24 | disposition home or self-care (01) ==
LOC: ANHIMG 13:24
PROVIDERS: PCP Family Medicine; Visit Provider Family Medicine
DX: Z12.31 Encounter for screening mammogram for malignant neoplasm of breast (principal)
CPT/HCPCS: 77063; 77067

== ENCOUNTER 2021-09-29 01:16 | Day surgery (SDC) | payer MEDICARE, SELFPAY ==
[2021-09-21 14:14] VITALS: BMI 25.3
[2021-09-29 09:01] VITALS: BP 153/58; PULSE 81; RESP 16; TEMP 36.6; O2SAT 100
[2021-09-29] MEDS: LACTATED RINGERS 1,000 ML 150 ML IV CONT (09:07)
--- NOTE | 2021-09-29 09:52 | WPDANESEPPF ---
Anes - Initial Pre Proc Eval Procedure: Operation Date: 09/29/21 10:15 Proposed Procedures p Esophagogastroduodenoscopy & Screening Colonoscopy - Berny Lim MD Date/Time: 09/29/21 09:52 Surgeon: Berny Lim MD Pre Op Diagnosis: GERD, epigastric pain Patient Data Age: 76 Gender: F Height: 1.61 m Weight: 65.5 kg Last Vital Signs Temp 36.6 C 09/29/21 09:01 Pulse 81 09/29/21 09:01 Resp 16 09/29/21 09:01 BP 153/58 H 09/29/21 09:01 Pulse Ox 100 09/29/21 09:01 Allergies Allergy/AdvReac Type Severity Reaction Status Date / Time Penicillins Allergy Intermediate hives Verified 09/29/21 08:59 Home Medications Medication Instructions Recorded Confirmed Type cholecalciferol (vitamin D3) 25 1,000 unit PO DAILY 06/06/19 09/29/21 History mcg (1,000 unit) tablet cyanocobalamin (vitamin B-12) 5,000 mcg PO DAILY 06/06/19 09/29/21 History 5,000 mcg capsule fluticasone propionate 50 2 spray NASAL DAILY ml 06/06/19 09/29/21 History mcg/actuation nasal spray,suspension olmesartan 40 mg tablet 40 mg PO DAILY #90 tablet 07/25/21 09/29/21 Rx hydrochlorothiazide 25 mg tablet 25 mg PO DAILY #90 tablet 08/02/21 09/29/21 Rx pantoprazole 40 mg tablet,delayed 40 mg PO BID #180 tablet 09/20/21 09/29/21 Rx release apixaban [Eliquis] 5 mg PO BID 09/21/21 09/29/21 History aspirin [Adult Aspirin EC Low 81 mg PO DAILY 09/21/21 09/29/21 History Strength] magnesium 200 mg PO DAILY 09/21/21 09/29/21 History zinc gluconate [Zinc-50] 50 mg PO DAILY 09/21/21 09/29/21 History Patient hx anesthesia problems: none Family hx anesthesia problems: none Results Review: All pre-operative results and documents have been reviewed as part of the pre-operative evaluation. [facility] Past Medical History Medical History Carcinoma of lung (~07/2020) RUL Carotid stenosis Chronic low back pain Essential (primary) hypertension GERD (gastroesophageal reflux disease) History of colon polyps Lumbar disc disease Monoclonal gammopathy Myasthenia gravis Vitamin B12 deficiency Surgical History Surgical History H/O cardiac radiofrequency ablation 08/2021 History of ankle surgery (~2003) History of hand surgery (~11/2018) History of hysterectomy (~1992) History of lobectomy of lung 09/05 - Right upper lobe History of tonsillectomy (~1954) Status post trigger finger release 10/05 - right hand Family History Family History Mother Cerebrovascular accident Family history of heart disease in male family member before age 55 Sibling Cerebrovascular accident Father Family history of heart disease in male family member before age 55 Other Diabetes mellitus Social History Social History Smoking packs per day: 0.5 Smoking cigarettes per day: 10.0 Years smoked: 25 Smoking pack-years: 12.50 Smoking status: Former smoker Tobacco type: cigarettes Alcohol intake: current Substance use: never Substance use type: does not use Living arrangements: with family Additional living arrangements comments: SON Gender identity (if verbalized by the patient): Female Spiritual care concerns: No Anes - Eval Final PreProcedure Day of Procedure 09/29/21 09:52 Patient weight: normal Heart: regular rate and rhythm Lungs: clear to auscultation Airway: Mallampati scale class II Neurological: alert and oriented Last oral intake: >/= 8 hours ASA classification: III Emergent: no Anesthetic plan: proceed Anesthesia type and monitoring: general GIVS and standard monitoring Results Review: All pre-operative results and documents have been reviewed as part of the pre-operative evaluation. Informed Consent: The patient's anesthetic plan and its attendant risks and benefits were disc
--- NOTE | 2021-09-29 10:19 | WPDGICN ---
Assessment and Plan Assessment and plan (1) GERD (gastroesophageal reflux disease): Qualifiers: Esophagitis presence: without esophagitis Qualified Code(s): K21.9 - Gastro-esophageal reflux disease without esophagitis Code(s): K21.9 - Gastro-esophageal reflux disease without esophagitis Status: Acute Assessment and Plan: Patient was with stable history of GE reflux. EGD is requested has never had 1 before. Plan is for EGD to assess status of her GE reflux. Plan to continue pantoprazole as she has a good results at this point. Anti-reflux measures reiterated today. (2) Encounter for screening colonoscopy: Code(s): Z12.11 - Encounter for screening for malignant neoplasm of colon Status: Acute Assessment and Plan: Patient's last colonoscopy 12 years ago. She may have had small colon polyps in the past. This will be assessed at time colonoscopy. GI Consult Note Consult date/time: 09/29/21 10:19 HPI: Cassandra Martinez is a 76 year old female Presents for colonoscopy an EGD. She reports her last colonoscopy in 2009 May have had a small polyp. She states her current bowel movements are normal. She presents today for screening colonoscopy. Patient additionally has indigestion and some symptoms that may represent regurgitation. These are not actively a problem. She states the symptoms were worse several months ago which time she was diagnosed with myasthenia gravis and atrial fibrillation. Patient has been maintained on pantoprazole with apparent good results. She states she has minimal heartburn no regurgitation on this medication. She denies any dysphagia. She has had no weight loss or bleeding. Review of Systems Review of Systems: All systems reviewed & are unremarkable except as noted in HPI and below [facility] Past Medical History Medical History Carcinoma of lung (~07/2020) RUL Carotid stenosis Chronic low back pain Essential (primary) hypertension GERD (gastroesophageal reflux disease) History of colon polyps Lumbar disc disease Monoclonal gammopathy Myasthenia gravis Vitamin B12 deficiency Surgical History Surgical History H/O cardiac radiofrequency ablation 08/2021 History of ankle surgery (~2003) History of hand surgery (~11/2018) History of hysterectomy (~1992) History of lobectomy of lung 09/05 - Right upper lobe History of tonsillectomy (~1955) Status post trigger finger release 10/05 - right hand Family History Family History Mother Cerebrovascular accident Family history of heart disease in male family member before age 55 Sibling Cerebrovascular accident Father Family history of heart disease in male family member before age 55 Other Diabetes mellitus Social History Social History Smoking packs per day: 0.5 Smoking cigarettes per day: 10.0 Years smoked: 25 Smoking pack-years: 12.50 Smoking status: Former smoker Tobacco type: cigarettes Alcohol intake: current Substance use: never Substance use type: does not use Living arrangements: with family Additional living arrangements comments: SON Gender identity (if verbalized by the patient): Female Spiritual care concerns: No Meds Home Medications and Allergies Home Medications Medication Instructions Recorded Confirmed Type cholecalciferol (vitamin D3) 25 1,000 unit PO DAILY 06/06/19 09/29/21 History mcg (1,000 unit) tablet cyanocobalamin (vitamin B-12) 5,000 mcg PO DAILY 06/06/19 09/29/21 History 5,000 mcg capsule fluticasone propionate 50 2 spray NASAL DAILY ml 06/06/19 09/29/21 History mcg/actuation nasal spray,suspension olmesartan 40 mg tablet 40 mg PO DAILY #90 tablet 07/25/21 09/29/21 Rx hydrochlorothiazide 25 m
--- NOTE | 2021-09-29 10:31 | SUR.OPER ---
EGD ENDED AT 1029, COLONOSCOPY BEGAN AT 1034.
[2021-09-29 10:49] VITALS: BP 120/57; PULSE 62; RESP 22; O2SAT 100
[2021-09-29 10:59] VITALS: BP 125/58; PULSE 62; RESP 20; O2SAT 100
[2021-09-29 11:09] VITALS: BP 160/70; PULSE 64; RESP 20; O2SAT 100
== END 2021-09-29 11:17 | disposition home or self-care (01) ==
PROVIDERS: PCP Family Medicine; Visit Provider Internal Medicine Gastroenterology
PROC: 0DJ08ZZ Inspection of Upper Intestinal Tract, Via Natural or Artificial Opening Endoscopic (ICD-10-PCS; CPT 43235; principal; 2021-09-29 10:15)
DX: Z12.11 Encounter for screening for malignant neoplasm of colon (principal); D12.4 Benign neoplasm of descending colon; D12.3 Benign neoplasm of transverse colon; K21.9 Gastro-esophageal reflux disease without esophagitis; K64.8 Other hemorrhoids; I48.20 Chronic atrial fibrillation, unspecified; I65.29 Occlusion and stenosis of unspecified carotid artery; I10 Essential (primary) hypertension; D47.2 Monoclonal gammopathy; E53.8 Deficiency of other specified B group vitamins; M54.50 Low back pain, unspecified; G89.29 Other chronic pain; G70.00 Myasthenia gravis without (acute) exacerbation; Z85.118 Personal history of other malignant neoplasm of bronchus and lung; Z87.891 Personal history of nicotine dependence
CPT/HCPCS: 45385; 43235; 88305; J2001; J2704; J7120

== ENCOUNTER 2021-11-16 08:53 | Outpatient (CLI) | payer MEDICARE, SELFPAY ==
--- NOTE | ~2021-11-16 | CT_ITS ---
EXAMINATION: CT diagnostic chest wo con DATE: 11/16/2021 09:19 INDICATION: Malignant neoplasm of the right upper lobe TECHNIQUE: Computed tomography (CT) of the chest was performed without intravenous contrast. The dose -length product (DLP) was 147.12 mGy-cm. 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 COMPARISON: 06/13/2021 FINDINGS: Again noted are changes of right upper lobectomy. There is a stable 4 mm nodule of the righ t lower lobe on image 80. There is a small area of chronic cystic change in the left lower lobe on im age 76 abutting the major fissure There appears to be mild thickening of the outer wall and internal septations. There is no pleural effusion or pneumothorax. No pathologically enlarged thoracic lymph n odes are identified. The heart size is normal. Calcified coronary artery atherosclerosis is noted. Th ere is a 3.7 cm cyst of the left kidney. There is moderate thoracic spondylosis. IMPRESSION: 1. Stable changes of right upper lobectomy. 2. Cystic area of the left lower lobe with minimal thickening of the outer wall and internal septatio ns. Follow-up CT in six months is recommended. Reviewed, dictated and finalized at location F. IMPRESSION: 1. Stable changes of right upper lobectomy. 2. Cystic area of the left lower lobe with minimal thickening of the outer wall and internal septations. Follow-up CT in six months is recommended.
[2021-11-16 10:24] LABS: Hematocrit 34.2 % (37.0-47.0); Hemoglobin 10.6 g/dL (12.0-15.0); Mean Corpuscular Hemoglobin 27.9 pg (26-34); Mean Platelet Volume 10.2 fl (7.4-10.4); Platelet Count Result 348 k/mm3 (150-375); Red Cell Distribution Width 16.6 % (11.5-14.5); White Blood Count 7.5 K/mm3 (4.5-10.0)
[2021-11-16 10:34] LABS: Alanine Aminotransferase 9 U/L (6-35); Albumin Level 4.6 g/dL (3.5-5.1); Alkaline Phosphatase 119 U/L (38-126); Anion Gap 9 mmol/L (8-16); Aspartate Amino Transferase 20 U/L (14-36); Bilirubin,Total 0.4 mg/dL (0.2-1.3); Blood Urea Nitrogen 23 mg/dL (7-17); Calcium 9.7 mg/dL (8.4-10.2); Carbon Dioxide 30 mmol/L (22-30); Chloride 99 mmol/L (98-107); Estimated Glomerular Filt Rate 48; Glucose 116 mg/dL (65-110); Sodium 138 mmol/L (137-145)
[2021-11-16 11:02] LABS: Anisocytosis 1+ (NORMAL); Band Neutrophils Percent 1 % (0-6); Iron 51 ug/dL (37-170); Lymphocytes Absolute Manual 1.87 K/mm3 (1.1-4.5); Metamyelocytes Percent 2 %; Monocytes Absolute Manual 2.32 K/mm3 (0.1-0.90); Monocytes Percent Manual 31 % (3-9); Myelocytes Percent 2 %; Neutrophils Percent Manual 39 % (46-73); Platelet Estimate Adequate (Adequate); Total Cells Counted 100
[2021-11-16 11:13] LABS: Percent Iron Saturation 15 % (20-50)
[2021-11-16 11:52] LABS: Folic Acid 16.3 ng/mL (2.76->20); Vitamin B12 > 1000.0 pg/mL (239-931)
== END 2021-11-16 08:54 | disposition home or self-care (01) ==
PROVIDERS: PCP Family Medicine; Visit Provider Internal Medicine Hematology & Oncology
DX: C34.11 Malignant neoplasm of upper lobe, right bronchus or lung (principal)
CPT/HCPCS: 36415; 71250; 80053; 82607; 82728; 82746; 83540; 83550; 85025

== ENCOUNTER 2022-03-14 09:47 | Outpatient (CLI) | payer MEDICARE, SELFPAY ==
--- NOTE | ~2022-03-14 | XR_ITS ---
EXAMINATION: XR lumbar spine 2-3V DATE: 03/14/2022 10:08 INDICATION: Bilateral sciatica, left greater than right. TECHNIQUE: Anteroposterior and lateral views of the lumbar spine, and cone-down lateral view of the l umbosacral junction were obtained. COMPARISON: MRI, 10/23/2020 FINDINGS: There are 3 mm of anterolisthesis of L4 on L5. The vertebral body heights are maintained. T here is unchanged severe loss of intervertebral disc space height at L5-S1. There is moderate loss of intervertebral disc space height at L1-2 and mild loss of disc space height throughout the remainder of the lumbar spine. No fracture is identified. There is severe bilateral facet joint osteoarthritis throughout the lumbar spine. Calcified atherosclerosis is noted. IMPRESSION: 1. Severe lumbar spondylosis without acute findings or significant interval change. Reviewed, dictated and finalized at location A. IMPRESSION: 1. Severe lumbar spondylosis without acute findings or significant interval paul nge.
== END 2022-03-14 09:48 | disposition home or self-care (01) ==
PROVIDERS: PCP Family Medicine; Visit Provider Pain Medicine Interventional Pain Medicine
DX: M47.27 Other spondylosis with radiculopathy, lumbosacral region (principal)
CPT/HCPCS: 72100

== ENCOUNTER 2022-05-29 08:41 | Outpatient (CLI) | payer MEDICARE, SELFPAY ==
--- NOTE | ~2022-05-29 | CT_ITS ---
CT Scan of the Chest without Contrast: Clinical Indication: Malignant neoplasm right upper lobe Technique: Contiguous sections were acquired throughout the chest without intravenous contrast. Dose reduction technique was used on this scan by utilizing automated exposure control and iterative recon struction technique. The dose-length product (DLP) was 144.44 mGy-cm. COMPARISON: 11/16/2021 and 05/27/2020 Findings: There is no evidence of any significant mediastinal, hilar or axillary lymphadenopathy. Atherosclerot ic changes and coronary artery calcifications are present. No aortic aneurysm. There is no evidence of pleural or pericardial effusion. Patient is status post prior right upper lobectomy. Stable subcentimeter pulmonary nodule at the righ t lower lobe (series 4 image 80). Stable area of groundglass opacity anteromedial left upper lobe (se michelle 4 image 39 for example). Stable area of focal cystic change in the left lower lobe adjacent to t he major fissure. Images through the upper abdomen reveal no abnormalities. Impression: Groundglass opacity anteromedial left upper lobe is stable from most recent prior exam. Follow-up CT exam in 6-12 months recommended to reassess. Focal area cystic change in the left lower lobe is stable since 05/27/2020. Stability over this time intervals compatible with benignity. Status post right upper lobectomy. Reviewed, dictated and finalized at location . 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 Follow-up CT exam in 6-12 months recommended to reassess. Focal area cystic change in the left lower lobe is stable since 05/27/2020. Sta bility over this time intervals compatible with benignity. Status post right upper lobectomy.
== END 2022-05-29 08:42 | disposition home or self-care (01) ==
PROVIDERS: PCP Family Medicine; Visit Provider Internal Medicine Hematology & Oncology
DX: C34.11 Malignant neoplasm of upper lobe, right bronchus or lung (principal); R91.8 Other nonspecific abnormal finding of lung field
CPT/HCPCS: 71250

== ENCOUNTER 2022-05-29 09:08 | Outpatient (CLI) | payer MEDICARE, SELFPAY ==
[2022-05-29 09:55] LABS: Basophils Absolute Auto 0.1 K/mm3 (0.0-0.1); Basophils Percent Auto 0.8 % (0.2-1.2); Eosinophils Absolute Auto 0.1 K/mm3 (0-0.3); Hematocrit 32.5 % (37.0-47.0); Hemoglobin 10.9 g/dL (12.0-15.0); Immature Granulocyte Absolute 0.05 K/mm3 (0.00-0.031); Immature Granulocyte Percent A 0.8 % (0-0.5); Lymphocytes Absolute Auto 1.58 K/mm3 (0.9-3.2); Lymphocytes Percent Auto 26.3 % (18.3-44.2); Mean Corpuscular HGB Conc 33.5 g/dl (32-36); Mean Corpuscular Hemoglobin 30.8 pg (26-34); Mean Corpuscular Volume 91.8 fl (80-100); Mean Platelet Volume 10.1 fl (7.4-10.4); Monocytes Absolute Auto 1.9 K/mm3 (0.1-0.6); Neutrophils Absolute Auto 2.4 K/mm3 (1.3-6.7); Neutrophils Percent Auto 40.1 % (45.5-73.1); Platelet Count Result 315 k/mm3 (150-375); Red Blood Count 3.54 M/mm3 (4.2-5.4); Red Cell Distribution Width 14.7 % (11.5-14.5)
[2022-05-29 12:32] LABS: Alanine Aminotransferase 14 U/L (6-35); Albumin Level 4.5 g/dL (3.5-5.1); Alkaline Phosphatase 90 U/L (38-126); Anion Gap 8 mmol/L (8-16); Aspartate Amino Transferase 24 U/L (14-36); Bilirubin,Total 0.6 mg/dL (0.2-1.3); Blood Urea Nitrogen 24 mg/dL (7-17); Calcium 9.4 mg/dL (8.4-10.2); Carbon Dioxide 31 mmol/L (22-30); Chloride 97 mmol/L (98-107); Estimated Glomerular Filt Rate 54; Glucose 104 mg/dL (65-110); Potassium 3.6 mmol/L (3.4-5.0); Sodium 136 mmol/L (137-145)
[2022-05-29 12:42] LABS: Immunoglobulin A 399 mg/dL (70-400); Immunoglobulin G 1426 mg/dL (700-1600); Immunoglobulin M 91 mg/dL (40-230)
[2022-05-29 13:39] LABS: Folic Acid > 20.0 ng/mL (2.76->20)
[2022-05-29 16:55] LABS: Iron 165 ug/dL (37-170)
[2022-05-29 17:04] LABS: Percent Iron Saturation 47 % (20-50)
[2022-06-01 09:50] LABS: Kappa\\Lambda Light Chains 0.24 (0.26-1.65); Lambda Light Chain 87.5 mg/L (5.7-26.3)
[2022-06-01 17:12] LABS: Abnormal Protein Band 1 0.8 g/dL; Albumin 4.1 g/dL (3.8-4.8); Alpha 1 Globulin 0.3 g/dL (0.2-0.3); Alpha 2 Globulin 0.8 g/dL (0.5-0.9); Beta 1 Globulin 0.6 g/dL (0.4-0.6); Gamma Globulin 1.3 g/dL (0.8-1.7); Protein, Total 7.5 g/dL (6.1-8.1)
== END 2022-05-29 09:09 | disposition home or self-care (01) ==
LOC: ANHLAB 09:10
PROVIDERS: PCP Family Medicine; Visit Provider Internal Medicine Hematology & Oncology
DX: D47.2 Monoclonal gammopathy (principal)
CPT/HCPCS: 36415; 71250; 80053; 82607; 82728; 82746; 82784; 83540; 83550; 83883; 84155; 84165; 85025

== ENCOUNTER 2022-06-06 14:58 | Outpatient (CLI) | payer MEDICARE, SELFPAY ==
--- NOTE | ~2022-06-06 | XR_ITS ---
Thoracic spine: Clinical Indication: Pain AP and lateral views were performed. No fracture is seen. Probable minimal grade 1 retrolisthesis of T11 over T12. There is moderate degen erative disc change at T11-T12. The remaining intervertebral disc spaces appear normal. Paravertebral soft tissues appear normal. Impression: Minimal grade 1 retrolisthesis of T11 over T12, degenerative disc change at this level. Reviewed, dictated and finalized at location M. 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
== END 2022-06-06 14:59 | disposition home or self-care (01) ==
LOC: ANHIMG 15:04
PROVIDERS: PCP Family Medicine; Visit Provider Pain Medicine Interventional Pain Medicine
DX: M54.14 Radiculopathy, thoracic region (principal); M47.817 Spondylosis without myelopathy or radiculopathy, lumbosacral region
CPT/HCPCS: 72072

== ENCOUNTER 2022-07-07 12:33 | Outpatient (CLI) | payer MEDICARE, SELFPAY ==
--- NOTE | ~2022-07-07 | DEXA_ITS ---
Bone Density Report Name: ZEE BOWERS Age: 76 Sex: Female Ethnicity: White Date of : 1945 Indication: postmenopausal; screening for osteoporosis; height loss; prior fracture; cancer; hysterectomy; Referring Provider: FRAN ZAVALA Study: Bone densitometry was performed. Exam Date: July 07, 2022 Accession number: [id number] Bone Density: Region BMD T-score Z-score Classification AP Spine(L1, L4) 1.306 2.4 5.0 Normal Femoral Neck (Left) 0.702 -1.3 0.9 Osteopenia Total Hip (Left) 0.862 -0.7 1.3 Normal Femoral Neck (Right) 0.743 -1.0 1.3 Normal Total Hip (Right) 0.834 -0.9 1.1 Normal Total Hip Mean 0.848 -0.8 1.2 Normal World Health Organization criteria for BMD impression classify patients as: Normal (T-score at or above -1.0), Osteopenia (T-score between -1.0 and -2.5), or Osteoporosis (T-score at or below -2.5). 10-year Fracture Risk(1): Major Osteoporotic Fracture 18% Hip Fracture 3.4% Reported Risk Factors: [place] (), Neck BMD=0.702, BMI=26.1, previous fracture (1) FRAX(R) Version 3.08. Fracture probability calculated for an untreated patient. Fracture probability may be lower if the patient has received treatment. Previous Exams: Region Exam Age BMD T-score BMD Change BMD Change Date g/cm2 vs Baseline vs Previous AP Spine (L1,L4) 07/07/2022 76 1.306 2.4 0.113 (9.5%)* -0.006 (-0.5%) 07/24/2018 73 1.312 2.5 0.120 (10.0%)* 0.120 (10.0%)* 05/10/2016 70 1.193 1.4 Total Hip(Left) 07/07/2022 76 0.862 -0.7 -0.031 (-3.5%) -0.015 (-1.7%) 07/24/2018 73 0.877 -0.5 -0.016 (-1.7%) -0.016 (-1.7%) 05/10/2016 70 0.892 -0.4 Total Hip(Right) 07/07/2022 76 0.834 -0.9 -0.049 (-5.5%) -0.019 (-2.2%) 07/24/2018 73 0.853 -0.7 -0.030 (-3.4%) -0.030 (-3.4%) 05/10/2016 70 0.883 -0.5 *Denotes significance at 95% confidence level, LSC for AP Spine = 0.022 g/cm2, LSC for Total Hip = 0.027 g/cm2 Clinical Information Provided by Patient: Has had a low trauma fracture Has used the following medications: Vitamin D, Calcium Has the following medical conditions: Cancer, Hysterectomy Patient maximum height was 63.5 Menopause Age: 49 No regular weight bearing exercise Drinks caffeinated beverages Onset of menses at age 10 Number of children 2 Impression: The patient has low bone mass, based on the Left Femoral Neck T-score. The patient has an estimated ten-year risk of
== END 2022-07-07 12:34 | disposition home or self-care (01) ==
LOC: ANHIMG 12:39
PROVIDERS: PCP Family Medicine; Visit Provider Nurse Practitioner Family
DX: Z78.0 Asymptomatic menopausal state (principal); M85.852 Other specified disorders of bone density and structure, left thigh
CPT/HCPCS: 77080

== ENCOUNTER 2022-11-27 08:34 | Outpatient (CLI) | payer MEDICARE, SELFPAY ==
--- NOTE | ~2022-11-27 | CT_ITS ---
EXAMINATION:CT diagnostic chest w con DATE: 11/27/2022 09:13 INDICATION: Malignant neoplasm of upper lobe of right lung. TECHNIQUE: Computed tomography (CT) of the chest was performed with 75 mL Omnipaque 350 intravenous c ontrast. Automated exposure control and iterative reconstruction technique were employed. The dose-le ngth product (DLP) was 163.29 mGy-cm. COMPARISON: Chest CT 05/29/2022 FINDINGS: There are changes of right upper lobectomy. There is mild emphysema. There is mild atelecta sis bilaterally. There is mild scarring at the lung apices. No pleural effusion. Aortic atheroscleros is is noted. There is left atrial enlargement of the heart. No pericardial effusion. There is a 10 mm cyst in the liver. There is a 3.7 cm cyst in left kidney. There is cortical thinning of the kidneys. There is severe lower thoracic spondylosis. IMPRESSION: 1. No evidence of metastatic disease. Reviewed, dictated and finalized at location A.
[2022-11-27 09:03] LABS: Estimated Glomerular Filt Rate 48
== END 2022-11-27 08:35 | disposition home or self-care (01) ==
PROVIDERS: PCP Family Medicine; Visit Provider Internal Medicine Hematology & Oncology
DX: C34.11 Malignant neoplasm of upper lobe, right bronchus or lung (principal)
CPT/HCPCS: 71260; Q9967

== ENCOUNTER 2022-11-27 09:36 | Outpatient (CLI) | payer MEDICARE, SELFPAY ==
[2022-11-27 09:48] LABS: Basophils Percent Auto 0.5 % (0.2-1.2); Eosinophils Absolute Auto 0.1 K/mm3 (0-0.3); Eosinophils Percent Auto 0.9 % (0-4.4); Hematocrit 32.7 % (37.0-47.0); Hemoglobin 10.7 g/dL (12.0-15.0); Immature Granulocyte Absolute 0.07 K/mm3 (0.00-0.031); Immature Granulocyte Percent A 0.9 % (0-0.5); Lymphocytes Absolute Auto 1.64 K/mm3 (0.9-3.2); Lymphocytes Percent Auto 21.7 % (18.3-44.2); Mean Corpuscular HGB Conc 32.7 g/dl (32-36); Mean Corpuscular Hemoglobin 30.8 pg (26-34); Mean Corpuscular Volume 94.2 fl (80-100); Mean Platelet Volume 10.4 fl (7.4-10.4); Monocytes Absolute Auto 2.8 K/mm3 (0.1-0.6); Monocytes Percent Auto 37.1 % (2.6-8.5); Neutrophils Absolute Auto 2.9 K/mm3 (1.3-6.7); Neutrophils Percent Auto 38.9 % (45.5-73.1); Platelet Count Result 288 k/mm3 (150-375); Red Blood Count 3.47 M/mm3 (4.2-5.4); Red Cell Distribution Width 13.6 % (11.5-14.5); White Blood Count 7.6 K/mm3 (4.5-10.0)
[2022-11-27 10:45] LABS: Alanine Aminotransferase 18 U/L (6-35); Albumin Level 4.5 g/dL (3.5-5.1); Alkaline Phosphatase 109 U/L (38-126); Anion Gap 7 mmol/L (8-16); Aspartate Amino Transferase 34 U/L (14-36); Bilirubin,Total 0.5 mg/dL (0.2-1.3); Blood Urea Nitrogen 23 mg/dL (7-17); Calcium 9.3 mg/dL (8.4-10.2); Carbon Dioxide 29 mmol/L (22-30); Chloride 100 mmol/L (98-107); Estimated Glomerular Filt Rate > 60; Glucose 114 mg/dL (65-110); Potassium 3.7 mmol/L (3.4-5.0); Sodium 136 mmol/L (137-145)
[2022-11-27 11:18] LABS: Immunoglobulin A 410 mg/dL (70-400); Immunoglobulin G 1352 mg/dL (700-1600); Immunoglobulin M 68 mg/dL (40-230)
[2022-11-30 12:57] LABS: Kappa\\Lambda Light Chains 0.27 (0.26-1.65); Lambda Light Chain 97.2 mg/L (5.7-26.3)
[2022-11-30 15:50] LABS: Abnormal Protein Band 1 0.8 g/dL; Alpha 1 Globulin 0.3 g/dL (0.2-0.3); Alpha 2 Globulin 1.1 g/dL (0.5-0.9); Beta 1 Globulin 0.5 g/dL (0.4-0.6); Gamma Globulin 1.3 g/dL (0.8-1.7); Protein, Total 7.6 g/dL (6.1-8.1)
== END 2022-11-27 09:37 | disposition home or self-care (01) ==
LOC: ANHLAB 09:38
PROVIDERS: PCP Family Medicine; Visit Provider Internal Medicine Hematology & Oncology
DX: D47.2 Monoclonal gammopathy (principal)
CPT/HCPCS: 36415; 71260; 80053; 82784; 83883; 84155; 84165; 85025; Q9967

== ENCOUNTER 2023-02-27 09:04 | Outpatient (CLI) | payer MEDICARE, SELFPAY ==
--- NOTE | ~2023-02-27 | MM_ITS ---
EXAMINATION: MM screening cherelle BI w yesika HISTORY: Screening mammogram TECHNIQUE: Craniocaudal and mediolateral oblique 3-D tomosynthesis images were obtained and synthetic 2-D images were generated. CAD analysis was submitted and interpreted. COMPARISON: 08/31/2021, 08/09/2020, 08/13/2019 bilateral screening mammogram examinations BREAST PARENCHYMAL COMPOSITION: The breasts are heterogeneously dense, which may obscure small masses . FINDINGS: There is no evidence of suspicious mass, calcification, or architectural distortion to sugg est malignancy in either breast. There has been no suspicious interval change. IMPRESSION: 1. No mammographic evidence of malignancy. 2. Recommend routine screening mammography in one year. BI-RADS Category 1: Negative Reviewed, dictated and finalized at location A.
== END 2023-02-27 09:05 | disposition home or self-care (01) ==
PROVIDERS: PCP Family Medicine; Visit Provider Family Medicine
DX: Z12.31 Encounter for screening mammogram for malignant neoplasm of breast (principal)
CPT/HCPCS: 77063; 77067

== ENCOUNTER 2023-05-28 08:51 | Outpatient (CLI) | payer MEDICARE, SELFPAY ==
--- NOTE | ~2023-05-28 | CT_ITS ---
Clinical Indication: Lung cancer CT Scan of the Chest with Contrast: Technique: Contiguous sections were acquired throughout the chest after intravenous administration of 75 cc of Omnipaque 350. Dose reduction technique was used on this scan by utilizing automated exposu re control and iterative reconstruction technique. The dose-length product (DLP) was 136.47 mGy-cm. COMPARISON: 11/27/2022 Findings: There is no evidence of any significant mediastinal, hilar or axillary lymphadenopathy. There is no f illing defect in the pulmonary arterial tree to suggest pulmonary embolus. There is no evidence of ao rtic dissection or aneurysm. There is no evidence of pleural or pericardial effusion. Patient is status post right upper lobectomy with associated minimal scarring. No suspicious pulmonar y nodule seen. Images through the upper abdomen reveal no abnormalities. Impression: No evidence for active malignancy or metastatic disease. Status post right upper lobectomy. Reviewed, dictated and finalized at [facility]. RVISOR BONDING Impression: No evidence for active malignancy or metastatic disease. Status post right upper lobectomy.
[2023-05-28 09:38] LABS: Estimated Glomerular Filt Rate 48
== END 2023-05-28 08:52 | disposition home or self-care (01) ==
PROVIDERS: PCP Family Medicine; Visit Provider Internal Medicine Hematology & Oncology
DX: C34.11 Malignant neoplasm of upper lobe, right bronchus or lung (principal); Z90.2 Acquired absence of lung [part of]
CPT/HCPCS: 36415; 71260; 80053; 80061; 83036; 84443; 85025; Q9967

== ENCOUNTER 2023-05-28 09:55 | Outpatient (CLI) | payer MEDICARE, SELFPAY ==
[2023-05-28 10:24] LABS: Hematocrit 32.9 % (37.0-47.0); Hemoglobin 10.7 g/dL (12.0-15.0); Mean Corpuscular HGB Conc 32.5 g/dl (32-36); Mean Corpuscular Hemoglobin 30.6 pg (26-34); Mean Platelet Volume 10.4 fl (7.4-10.4); Platelet Count Result 278 k/mm3 (150-375); Red Cell Distribution Width 14.1 % (11.5-14.5); White Blood Count 7.2 K/mm3 (4.5-10.0)
[2023-05-28 10:31] LABS: Basophils Absolute Manual 0.07 K/mm3 (0.0-0.1); Basophils Percent Manual 1 % (0-1); Hypochromasia 1+ (NORMAL); Lymphocytes Absolute Manual 1.72 K/mm3 (1.1-4.5); Monocytes Absolute Manual 2.23 K/mm3 (0.1-0.90); Monocytes Percent Manual 31 % (3-9); Neutrophils Percent Manual 44 % (46-73); Platelet Estimate Adequate (Adequate); Schistocytes None Seen (NORMAL); Total Cells Counted 100
[2023-05-28 10:54] LABS: Cholesterol 191 mg/dL (0-200); HDL Direct 43 mg/dL; Triglycerides 87 mg/dL (<150)
[2023-05-28 10:56] LABS: Alanine Aminotransferase 12 U/L (6-35); Albumin Level 4.5 g/dL (3.5-5.1); Alkaline Phosphatase 85 U/L (38-126); Anion Gap 8 mmol/L (8-16); Aspartate Amino Transferase 22 U/L (14-36); Bilirubin,Total 0.7 mg/dL (0.2-1.3); Blood Urea Nitrogen 24 mg/dL (7-17); Calcium 9.9 mg/dL (8.4-10.2); Carbon Dioxide 30 mmol/L (22-30); Chloride 100 mmol/L (98-107); Estimated Glomerular Filt Rate 54; Glucose 103 mg/dL (65-110); Potassium 3.9 mmol/L (3.4-5.0); Sodium 138 mmol/L (137-145)
[2023-05-28 11:05] LABS: LDL Cholesterol Direct 104 mg/dL
[2023-05-28 12:04] LABS: Hemoglobin A1C 5.8 % (<5.7)
== END 2023-05-28 09:56 | disposition home or self-care (01) ==
LOC: ANHLAB 10:06
PROVIDERS: Nurse Practitioner Family; PCP Family Medicine; Visit Provider Internal Medicine Hematology & Oncology
DX: C34.11 Malignant neoplasm of upper lobe, right bronchus or lung (principal); I10 Essential (primary) hypertension; R73.01 Impaired fasting glucose
CPT/HCPCS: 36415; 80053; 80061; 83036; 84443; 85025

== ENCOUNTER 2023-06-29 14:24 | Outpatient (CLI) | payer MEDICARE, SELFPAY ==
--- NOTE | ~2023-06-29 | XR_ITS ---
XR_CERV2-3V_CR DATE: 06/29/2023 14:50 INDICATION: Posterior neck pain, cervical radiculopathy. TECHNIQUE: AP, open-mouth, odontoid, lateral views COMPARISON: None FINDINGS: There is reversal of cervical curvature. There is mild levoscoliosis. C1 and C2 are normally aligned and the odontoid process is intact. There is mild degenerative disc disease and approximately 4 mm anterolisthesis at C3-4. There is severe degenerative disc disease at C4-5, C5-6 and C6-7, with associated mild retrolisthesis at C5-6 and C6-7. There is uncovertebral joint and apophyseal joint spurring throughout the cervical spine. IMPRESSION: Reversal cervical curvature 4 mm anterolisthesis at C3-4 Severe cervical spondylosis Reviewed, dictated and finalized at Location A. Reviewed, dictated and finalized at location B. 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
--- NOTE | ~2023-06-29 | XR_ITS ---
XR lumbar spine 2-3V DATE: 06/29/2023 14:49 INDICATION: Left leg radiculopathy TECHNIQUE: AP, lateral, coned lateral lumbosacral views COMPARISON: 03/14/2022 lumbar spine FINDINGS: There is osteopenia. Included T12-L5 pedicles are intact. No fracture or bone destruction of the lumbar spine. There is multilevel degenerative disc disease, severe at L5-S1, moderate to moderately severe at L1-2 and mild at the remaining lumbar interspaces. There is degenerative changes apophyseal joints with associated minimal grade 1 anterolisthesis at L4 -5. The sacroiliac joints are intact. There is extensive calcification of the abdominal aorta and iliac arteries; no abdominal aortic aneur ysm. IMPRESSION: No significant change since 03/14/2022 Reviewed, dictated and finalized at location B. 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
== END 2023-06-29 14:25 | disposition home or self-care (01) ==
LOC: ANHIMG 14:28
PROVIDERS: PCP Family Medicine; Visit Provider Pain Medicine Interventional Pain Medicine
DX: F41.1 Generalized anxiety disorder (principal); M47.26 Other spondylosis with radiculopathy, lumbar region; M47.27 Other spondylosis with radiculopathy, lumbosacral region; M47.814 Spondylosis without myelopathy or radiculopathy, thoracic region; M47.892 Other spondylosis, cervical region
CPT/HCPCS: 72040; 72100

== ENCOUNTER 2023-10-09 14:55 | Outpatient (CLI) | payer MEDICARE, SELFPAY ==
[2023-10-09 15:34] LABS: Basophils Percent Auto 0.3 % (0.2-1.2); Eosinophils Percent Auto 0.5 % (0-4.4); Hematocrit 30.9 % (37.0-47.0); Immature Granulocyte Absolute 0.08 K/mm3 (0.00-0.031); Immature Granulocyte Percent A 1.2 % (0-0.5); Lymphocytes Percent Auto 27.9 % (18.3-44.2); Mean Corpuscular HGB Conc 32.4 g/dl (32-36); Mean Corpuscular Hemoglobin 29.9 pg (26-34); Mean Corpuscular Volume 92.5 fl (80-100); Mean Platelet Volume 11.3 fl (7.4-10.4); Monocytes Absolute Auto 2.2 K/mm3 (0.1-0.6); Monocytes Percent Auto 33.4 % (2.6-8.5); Neutrophils Absolute Auto 2.4 K/mm3 (1.3-6.7); Neutrophils Percent Auto 36.7 % (45.5-73.1); Platelet Count Result 219 k/mm3 (150-375); Red Blood Count 3.34 M/mm3 (4.2-5.4); Red Cell Distribution Width 13.9 % (11.5-14.5); White Blood Count 6.5 K/mm3 (4.5-10.0)
[2023-10-09 15:45] LABS: INR 1.1; Prothrombin Time 15.2 Seconds (11.1-14.7)
[2023-10-09 15:48] LABS: Alanine Aminotransferase 10 U/L (6-35); Albumin Level 4.6 g/dL (3.5-5.1); Alkaline Phosphatase 71 U/L (38-126); Anion Gap 5 mmol/L (4-12); Aspartate Amino Transferase 19 U/L (14-36); Bilirubin,Total 0.4 mg/dL (0.2-1.3); Blood Urea Nitrogen 26 mg/dL (7-17); Calcium 9.7 mg/dL (8.4-10.2); Carbon Dioxide 32 mmol/L (22-30); Chloride 103 mmol/L (98-107); Estimated Glomerular Filt Rate 53; Glucose 122 mg/dL (65-110); Potassium 3.3 mmol/L (3.4-5.0); Sodium 140 mmol/L (137-145)
== END 2023-10-09 14:56 | disposition home or self-care (01) ==
PROVIDERS: PCP Family Medicine
DX: Z01.818 Encounter for other preprocedural examination (principal); I50.32 Chronic diastolic (congestive) heart failure
CPT/HCPCS: 36415; 80053; 85025; 85610

== ENCOUNTER 2023-11-27 09:06 | Outpatient (CLI) | payer MEDICARE, SELFPAY ==
--- NOTE | ~2023-11-27 | CT_ITS ---
Clinical Indication: Lung cancer CT Scan of the Chest with Contrast: Technique: Contiguous sections were acquired throughout the chest after intravenous administration of 75 cc of Omnipaque 350. Dose reduction technique was used on this scan by utilizing automated exposu re control and iterative reconstruction technique. The dose-length product (DLP) was 151.10 mGy-cm. COMPARISON: 05/28/2023 Findings: There is no evidence of any significant mediastinal, hilar or axillary lymphadenopathy. There is no f illing defect in the pulmonary arterial tree to suggest pulmonary embolus. There is no evidence of ao rtic dissection or aneurysm. No pericardial effusion. There is moderate left pleural effusion. There is partial left lower lobe atelectasis. Status post ri ght upper lobectomy. No suspicious pulmonary nodule identified. Probable minimal right pleural effusi on. Images through the upper abdomen reveal no abnormalities. Impression: No definite evidence of recurrent disease. Moderate left pleural effusion and minimal right pleural effusion. Partial left lower lobe atelectasis. Status post right upper lobectomy. Reviewed, dictated and finalized at location . Impression: No definite evidence of recurrent disease. Moderate left pleural effusion and minimal right pleural effusion. Partial left lower lobe atelectasis. Status post right upper lobectomy.
[2023-11-27 09:47] LABS: Estimated Glomerular Filt Rate 53
== END 2023-11-27 09:07 | disposition home or self-care (01) ==
LOC: ANHIMG 09:10
PROVIDERS: PCP Family Medicine; Visit Provider Internal Medicine Hematology & Oncology
DX: C34.11 Malignant neoplasm of upper lobe, right bronchus or lung (principal); J90 Pleural effusion, not elsewhere classified
CPT/HCPCS: 36415; 71260; 80053; 82784; 83883; 84155; 84165; 85025; Q9967

== ENCOUNTER 2023-11-27 10:18 | Outpatient (CLI) | payer MEDICARE, SELFPAY ==
[2023-11-27 10:38] LABS: Hematocrit 29.2 % (37.0-47.0); Hemoglobin 9.4 g/dL (12.0-15.0); Mean Corpuscular HGB Conc 32.2 g/dl (32-36); Mean Corpuscular Hemoglobin 30.3 pg (26-34); Mean Corpuscular Volume 94.2 fl (80-100); Mean Platelet Volume 10.4 fl (7.4-10.4); Platelet Count Result 299 k/mm3 (150-375); Red Cell Distribution Width 16.1 % (11.5-14.5); White Blood Count 7.3 K/mm3 (4.5-10.0)
[2023-11-27 11:30] LABS: Band Neutrophils Percent 9 % (0-6); Basophils Absolute Manual 0.07 K/mm3 (0.0-0.1); Basophils Percent Manual 1 % (0-1); Eosinophils Absolute Manual 0.14 K/mm3 (0.02-0.50); Eosinophils Percent Manual 2 % (0-4); Lymphocytes Absolute Manual 1.97 K/mm3 (1.1-4.5); Metamyelocytes Percent 10 %; Monocytes Percent Manual 11 % (3-9); Myelocytes Percent 1 %; Neutrophils Percent Manual 39 % (46-73); Platelet Estimate Adequate (Adequate); Schistocytes None Seen; Total Cells Counted 100
[2023-11-27 11:31] LABS: Anisocytosis 1+; Crenated RBC 1+; Microcytosis 1+ (NORMAL); Poikilocytosis 1+
[2023-11-27 13:03] LABS: Alanine Aminotransferase 9 U/L (6-35); Alkaline Phosphatase 110 U/L (38-126); Anion Gap 7 mmol/L (4-12); Aspartate Amino Transferase 18 U/L (14-36); Bilirubin,Total 0.8 mg/dL (0.2-1.3); Blood Urea Nitrogen 12 mg/dL (7-17); Calcium 9.2 mg/dL (8.4-10.2); Carbon Dioxide 29 mmol/L (22-30); Chloride 101 mmol/L (98-107); Estimated Glomerular Filt Rate 60; Glucose 120 mg/dL (65-110); Potassium 3.4 mmol/L (3.4-5.0); Sodium 137 mmol/L (137-145)
[2023-11-27 13:09] LABS: Immunoglobulin A 530 mg/dL (70-400); Immunoglobulin G 1475 mg/dL (700-1600); Immunoglobulin M 64 mg/dL (40-230)
[2023-11-28 15:05] LABS: Kappa\\Lambda Light Chains 0.25 (0.26-1.65); Lambda Light Chain 161.3 mg/L (5.7-26.3)
[2023-11-29 12:38] LABS: Protein, Total 7.1 g/dL (6.1-8.1)
[2023-11-30 15:18] LABS: Abnormal Protein Band 1 0.9 g/dL (NONE DETECTED); Albumin 3.2 g/dL (3.8-4.8); Alpha 1 Globulin 0.5 g/dL (0.2-0.3); Alpha 2 Globulin 1.1 g/dL (0.5-0.9); Beta 1 Globulin 0.5 g/dL (0.4-0.6); Gamma Globulin 1.4 g/dL (0.8-1.7)
== END 2023-11-27 10:19 | disposition home or self-care (01) ==
LOC: ANHLAB 10:20
PROVIDERS: PCP Family Medicine; Visit Provider Internal Medicine Hematology & Oncology
DX: D47.2 Monoclonal gammopathy (principal)
CPT/HCPCS: 36415; 80053; 82784; 83883; 84155; 84165; 85025

== ENCOUNTER 2024-02-13 10:00 | Outpatient (RCR) | payer MEDICARE, SELFPAY | END 2024-03-10 15:04 | disposition home or self-care (01) | LOC: ANHCPREHAB 10:00 | PROVIDERS: PCP Family Medicine | DX: Z95.1 Presence of aortocoronary bypass graft (principal) | CPT/HCPCS: 93798 ==

== ENCOUNTER 2024-02-15 04:05 | Inpatient (IN) | payer MEDICARE, SELFPAY ==
[2024-02-15] VITALS (30 sets, daily range): BP systolic 125–168; BP diastolic 38–62; PULSE 72–93; RESP 15–25; TEMP 36.1–37.1; O2SAT 98–100; BMI 22.6
--- NOTE | 2024-02-15 | ECHO_ITS ---
Patient Info Name: Cassandra Martinez Age: 78 years : 1945 Gender: Female Ht: 63 in Wt: 127 lbs BSA: 1.61 m2 HR: 86 bpm BP: 145 / 47 mmHg Heart Rhythm: Sinus Rhythm Technical Quality: Fair Exam Date: 02/15/2024 12:20 PM Exam Location: Echo Lab Patient Status: Inpatient Admit Date: 02/15/2024 Staff Ordering Physician: Gerson Flores MD Field Technical Support Consultant: Gisela Lepe RDCS Attending Provider: Keiry Soto DO Exam Type: CA echo doppler color flow Study Info Indications R07.9 - Chest pain, unspecified Complete two-dimensional, color flow and Doppler transthoracic echocardiogram is performed. History/Risk Factors Hypertension: Yes Summary 1. Complete two-dimensional, color flow and Doppler transthoracic echocardiogram is performed. 2. Normal left ventricular size and systolic contractility. 3. Dilated left atrium. 4. Mild MR. 5. Sclerotic aortic valve with adequate leaflet excursion. Left Ventricle Left ventricular chamber dimension is normal. Left ventricular systolic function is normal, estimated at 60-65%. The left ventricular diastolic function is grade II diastolic dysfunction. Right Ventricle Right ventricular chamber dimension is normal. Left Atria Left atrial chamber dimension is moderately enlarged. Right Atria Right atrial chamber dimension is normal. Aortic Valve The aortic valve is trileaflet. There is mild aortic valve sclerosis. Pulmonic Valve The pulmonic valve is normal. Mitral Valve The mitral valve has normal leaflets. There is mild mitral valve regurgitation. The mitral valve annulus is moderately calcified. Tricuspid Valve The tricuspid valve leaflets are normal. There is mild tricuspid valve regurgitation. Pericardium/Pleural The pericardium appears normal. Aorta The aortic root size at the sinus of Valsalva is normal. Left Ventricular Outflow Tract Name Value Normal LVOT 2D LVOT Diameter 2.0 cm LVOT Doppler LVOT Peak Gradient 2 mmHg LVOT Mean Gradient 1 mmHg LVOT VTI 11 cm LVOT VTI/AV VTI Ratio 0.4 LVOT Stroke Volume 34 ml LVOT CO 2.7 l/min LVOT CI 1.7 l/min/m2 Pulmonic Valve Name Value Normal RVOT Doppler RVOT Peak Gradient 1 mmHg PV Doppler PV Peak Gradient 3 mmHg Mitral Valve Name Value Normal MV Doppler MV Decel [place] 770 cm/s2 MV PHT 38 ms
--- NOTE | ~2024-02-15 | BM_ITS ---
EXAMINATION: CCL bone marrow asp w bx diag ORDER COMPLETED DATE: 02/20/2024 09:40 INDICATION: Anemia TECHNIQUE: A time-out was performed to verify the patient's name, date of , and procedure to b e performed. The procedure including the risks and benefits was discussed with the patient. Risks dis cussed included bleeding, infection, nerve injury and allergic reaction. The patient understood the r isks and agreed to proceed. The skin overlying the right posterior iliac spine was prepped and draped in usual sterile fashion. Anesthetic was administered with 1% lidocaine subcutaneously. Moderate co nscious sedation was achieved with 50 mcg fentanyl IV. An 11 gauge needle was inserted into the right ilium with fluoroscopic guidance. Bone marrow was aspirated. An 8 gauge needle was then inserted int o the right ilium with fluoroscopic guidance. A core bone marrow biopsy was obtained. The needle was removed and the entry site was cleaned and dressed. There were no immediate complications. A total o f 24 fluoroscopic images were recorded. Fluoroscopy exposure time was 0.1 minutes. Total DAP was 76.7 mGycm^2 FINDINGS: Real-time fluoroscopy demonstrates the biopsy needle tip overlying the right posterior juanis c spine. IMPRESSION: 1. Successful fluoroscopic guided bone marrow aspiration. 2. Successful fluoroscopic guided bone marrow biopsy. Reviewed, dictated and finalized at location A.
--- NOTE | ~2024-02-15 | XR_ITS ---
SMALL BOWEL SERIES ONLY INDICATION: GI bleed. Anemia. TECHNIQUE: Serial plain films and fluoroscopic spot films are performed following oral demonstration of thin barium. COMPARISON: None FINDINGS: Barium was followed sequentially through the small bowel. The mucosal pattern is unremarka ble. No evidence for stricture, polyp, diverticula or obstruction of flow of contrast. Transit time is normal. IMPRESSION: 1: Normal small bowel series. Reviewed, dictated and finalized at location B.
--- NOTE | ~2024-02-15 | XR_ITS ---
Portable chest x-ray Comparison: 07/19/2020 Clinical History: Chest pain Findings: Probable minimal pleural effusions. Possible minimal bibasilar pulmonary edema. Cardiomed iastinal silhouette is stable, status post CABG. Bones and soft tissues are unremarkable. Impression: Minimal pleural effusions with possible minimal bibasilar pulmonary edema. Status post CABG. Reviewed, dictated and finalized at location . Impression: Minimal pleural effusions with possible minimal bibasilar pulmonary edema. Status post CABG.
--- NOTE | 2024-02-15 04:12 | ECG_ITS ---
Test Date: 2024-02-15 04:11:31 Measurements Intervals [place] Rate: 73 P: 48 MT: 177 QRS: 19 QRSD: 82 T: 55 QT: 387 QTc: 427 Interpretive Statements SINUS RHYTHM POSSIBLE RIGHT VENTRICULAR CONDUCTION DELAY [RSR (QR) IN V1/V2] NONSPECIFIC ST & T-WAVE ABNORMALITY ABNORMAL ECG No previous ECG available for comparison Electronically Signed On 02-15-2024 07:40:16 CDT by Mendel Lugo M.D.
[2024-02-15 04:20] LABS: Mean Corpuscular HGB Conc 29.8 g/dl (32-36); Mean Corpuscular Hemoglobin 30.2 pg (26-34); Mean Corpuscular Volume 101.3 fl (80-100); Mean Platelet Volume 11.5 fl (7.4-10.4); Platelet Count Result 159 k/mm3 (150-375); Red Blood Count 1.49 M/mm3 (4.2-5.4); Red Cell Distribution Width 15.9 % (11.5-14.5); White Blood Count 10.9 K/mm3 (4.5-10.0)
[2024-02-15 04:31] LABS: Alanine Aminotransferase 10 U/L (6-35); Albumin Level 3.4 g/dL (3.5-5.1); Alkaline Phosphatase 64 U/L (38-126); Anion Gap 9 mmol/L (4-12); Aspartate Amino Transferase 17 U/L (14-36); Bilirubin,Total 1.1 mg/dL (0.2-1.3); Blood Urea Nitrogen 29 mg/dL (7-17); Calcium 8.9 mg/dL (8.4-10.2); Carbon Dioxide 25 mmol/L (22-30); Chloride 104 mmol/L (98-107); Estimated CRCL calculation 41 ml/min; Estimated Glomerular Filt Rate > 60; Glucose 123 mg/dL (65-110); Lipase 137 U/L (23-300); Potassium 3.2 mmol/L (3.4-5.0); Sodium 138 mmol/L (137-145)
[2024-02-15 04:43] LABS: INR 1.9; Prothrombin Time 22.6 Seconds (11.1-14.7)
[2024-02-15 04:44] LABS: Partial Thromboplastin Time 35.6 Seconds (22.3-36.8)
[2024-02-15 04:44] LABS: Troponin I 0.048 ng/mL (0.000-0.034)
[2024-02-15 05:01] LABS: Hematocrit 15.1 % (37.0-47.0); Hemoglobin 4.5 g/dL (12.0-15.0)
--- NOTE | 2024-02-15 05:03 | ED.CHESTPAIN ---
HPI - Chest Pain General Chief Complaint: Chest Pain Stated Complaint: CP RADIATE TO L ARM AND JAW, RESOLVED Time Seen by Provider: 02/15/24 04:15 History of Present Illness HPI narrative: Patient is a 78-year-old female who presents to the emergency department this morning via EMS due to concern for chest pain. Patient called EMS because that she started to have chest pain 2 hours prior to arrival and she initially thought it was acid reflux, however when the chest pain did not resolve she decided to come to the ED. Patient does have a history of a triple bypass in August. EMS did administer a full oral chewable aspirin prior to arrival and by the time patient arrived to the emergency department she is now chest pain-free. Patient does appear to be extremely pale and when asked if she has been having any melena or hematochezia she states that her stools have been tarry and black for the past 1-2 weeks. Denies any abdominal pain, any nausea or vomiting, and any additional symptoms or concerns at this time. Related Data Home Medications Medication Instructions Recorded Confirmed cholecalciferol (vitamin D3) 25 1,000 unit PO DAILY 06/06/19 12/07/23 mcg (1,000 unit) tablet cyanocobalamin (vitamin B-12) 5,000 mcg PO DAILY 06/06/19 12/07/23 5,000 mcg capsule fluticasone propionate 50 2 spray intranasal DAILY 06/06/19 12/07/23 mcg/actuation nasal spray,suspension (Flonase Allergy Relief) apixaban 5 mg tablet (Eliquis) 5 mg PO BID 09/21/21 12/07/23 aspirin 81 mg tablet,delayed 81 mg PO DAILY 09/21/21 12/07/23 release magnesium 200 mg tablet 200 mg PO DAILY 09/21/21 12/07/23 zinc gluconate 50 mg tablet 50 mg PO DAILY 09/21/21 12/07/23 pyridostigmine bromide 60 mg tablet mg PO ONCE 07/04/23 12/07/23 metoprolol tartrate 25 mg tablet mg PO 12/07/23 12/07/23 Allergies Allergy/AdvReac Type Severity Reaction Status Date / Time Penicillins Allergy Intermediate hives Verified 12/07/23 13:04 Review of Systems Review of Systems: All systems are reviewed and are negative unless stated otherwise in the HPI. [facility] Past Medical History Medical History Carcinoma of lung (~07/2020) RUL Carotid stenosis Chronic low back pain Essential (primary) hypertension GERD (gastroesophageal reflux disease) History of colon polyps Lumbar disc disease Monoclonal gammopathy Ocular myasthenia gravis Splenic laceration (~09/2021) Vitamin B12 deficiency Surgical History Surgical History H/O cardiac radiofrequency ablation 08/2021 H/O splenectomy (~09/2021) History of ankle surgery (~2003) History of hand surgery (~11/2018) History of hysterectomy (~1992) History of lobectomy of lung 09/05 - Right upper lobe History of tonsillectomy (~1954) Status post trigger finger release 10/05 - right hand Family History Family History Mother Cerebrovascular accident Sibling Cerebrovascular accident Father Family history of heart disease in male family member before age 55 Emphysema of lung Social History Social History Social History: Caffeine-coffee Smoking packs per day: 0.5 Smoking cigarettes per day: 10.0 Years smoked: 40 Smoking pack-years: 20.00 Smoking status: Former smoker Tobacco type: cigarettes Alcohol intake: current Drinks per week: 1 Alcohol use details: beer Substance use: never Substance use type: does not use Living arrangements: with family Additional living arrangements comments: SON Occupation/Education: retired Gender identity (if verbalized by the patient): Female Spiritual care concerns: No Exam Narrative: General: Alert, awake, afebrile, in no acute distress, pale. HEENT: PERRL, no rhinorrhea, no post nasal drip, oropharynx clear. [facility]
[2024-02-15 05:09] LABS: Band Neutrophils Percent 3 % (0-6); Basophils Percent Manual 1 % (0-1); Eosinophils Percent Manual 1 % (0-4); Lymphocytes Absolute Manual 1.63 K/mm3 (1.1-4.5); Lymphocytes Percent Manual 15 % (18-44); Metamyelocytes Percent 6 %; Monocytes Absolute Manual 2.72 K/mm3 (0.1-0.90); Monocytes Percent Manual 25 % (3-9); Total Cells Counted 100
[2024-02-15 05:10] LABS: Neutrophils Absolute Manual 5.66 K/mm3 (1.7-7.2); Neutrophils Percent Manual 49 % (46-73); Platelet Estimate Adequate (Adequate)
[2024-02-15 05:11] LABS: Anisocytosis 1+; Poikilocytosis 1+
[2024-02-15 05:12] LABS: Nucleated Red Blood Cells 1 %; Schistocytes None Seen
[2024-02-15] MEDS: POTASSIUM CHLORIDE 20 MEQ PACKET (FOR LIQUID) 40 MEQ PO (05:42)
--- NOTE | 2024-02-15 06:57 | ADMGEN ---
This patient, Cassandra Martinez, was admitted to IMU Room 204-01. Patient/family oriented to hospital policies and general routines including ID bracelet, bed and alarms, visiting hours, pain management, procedures, bathroom and other care routines, personal items, smoking policy, room service/diet, and visiting hours. Information on how to activate the Rapid Response Team has been discussed. Patient/Family are encouraged to report perceived risks to care and to ask questions if they do not understand what they are told or what they should do.
--- NOTE | 2024-02-15 08:01 | PM.IMHP ---
H&P: HPI History of Present Illness Date/Time: 02/15/24 08:01 Chief Complaint: Chest pain Narrative: 78 years old lady with history of CAD status post CABG, hypertension, hyperlipidemia, brought to ED by EMS because of chest pain. Patient had chest pain yesterday morning, and patient also has feeling of indigestion. Patient has recent bypass surgery in August this year. Upon arrival, patient was found pale. Patient head tire in black stool in past 1-2 weeks. Patient denied abdomen pain, nausea vomiting. Patient also denies fever, chills, focal weakness, dysuria.Upon arrival to ED, patient was afebrile, blood pressure is elevated, 159/62, tachypnea 23 pulse ox 100% on room air, lab showed severe anemia, hemoglobin 4.5, hemoglobin 9.4 on November 26, chemistry showed hypokalemia 3.2, elevated troponin 0.048, EKG shows sinus rhythm, no specific ST T-wave changes, chest x-ray showed minimal pleural effusion, possible minimal bibasilar pulmonary edema. Patient received 3 pack RBC, ER physician also consulted GI. We admit patient will for evaluation treatment Review of Systems Review of Systems: ROS negative except above PMFSH Past Medical History Medical History Carcinoma of lung (~07/2020) RUL Carotid stenosis Chronic low back pain Essential (primary) hypertension GERD (gastroesophageal reflux disease) History of colon polyps Lumbar disc disease Monoclonal gammopathy Ocular myasthenia gravis Splenic laceration (~09/2021) Vitamin B12 deficiency Surgical History Surgical History H/O cardiac radiofrequency ablation 08/2021 H/O splenectomy (~09/2021) History of ankle surgery (~2003) History of hand surgery (~11/2018) History of hysterectomy (~1992) History of lobectomy of lung 09/05 - Right upper lobe History of tonsillectomy (~1954) Status post trigger finger release 10/05 - right hand Family History Family History Mother Cerebrovascular accident Sibling Cerebrovascular accident Father Family history of heart disease in male family member before age 55 Emphysema of lung Social History Social History Social History: Caffeine-coffee Smoking packs per day: 0.5 Smoking cigarettes per day: 10.0 Years smoked: 40 Smoking pack-years: 20.00 Smoking status: Former smoker Tobacco type: cigarettes Alcohol intake: never Drinks per week: 1 Alcohol use details: beer Substance use: never Substance use type: does not use Do You Feel Safe in your Home?: Yes Lack of Transportation: No Lack of Food: Never True Current Housing: I Have Housing Concerned About Future Housing: No Difficulty Paying Gas/Electric Bills: No Difficulty Paying for Meds: No Currently Unemployed: No Education: Trade/Vocational Certificate Difficulty w/ Childcare or Family Care: No Living arrangements: with family Additional living arrangements comments: SON Occupation/Education: retired Gender identity (if verbalized by the patient): Female Spiritual care concerns: No Meds Home Medications and Allergies Home Medications Medication Instructions Recorded Confirmed Type cholecalciferol (vitamin D3) 25 1,000 unit PO DAILY 06/06/19 02/15/24 History mcg (1,000 unit) tablet cyanocobalamin (vitamin B-12) 5,000 mcg PO DAILY 06/06/19 02/15/24 History 5,000 mcg capsule fluticasone propionate 50 2 spray intranasal DAILY 06/06/19 02/15/24 History mcg/actuation nasal spray,suspension (Flonase Allergy Relief) apixaban 5 mg tablet (Eliquis) 5 mg PO BID 09/21/21 02/15/24 History aspirin 81 mg tablet,delayed 81 mg PO DAILY 09/21/21 02/15/24 History release pyridostigmine bromide 60 mg tablet 60 mg PO ONCE PRN Bladder Spasms 07/04/23 02/15/24 History atorvastati
[2024-02-15 08:02] LABS: Troponin I 0.061 ng/mL (0.000-0.034)
[2024-02-15] MEDS: OLMESARTAN MEDOXOMIL 20 MG TABLET 40 MG PO (08:39)
[2024-02-15] MEDS: METOPROLOL TARTRATE 25 MG TABLET PO ×2 (08:39→20:25)
[2024-02-15] MEDS: FUROSEMIDE INJ 40 MG/4 ML VIAL 20 MG IV PUSH (08:43)
[2024-02-15 08:57] LABS: Iron 17 ug/dL (37-170)
[2024-02-15 09:00] LABS: Anion Gap 8 mmol/L (4-12); Blood Urea Nitrogen 31 mg/dL (7-17); Carbon Dioxide 25 mmol/L (22-30); Chloride 107 mmol/L (98-107); Estimated CRCL calculation 41 ml/min; Estimated Glomerular Filt Rate > 60; Glucose 114 mg/dL (65-110); Potassium 4.2 mmol/L (3.4-5.0); Sodium 140 mmol/L (137-145)
[2024-02-15] MEDS: PANTOPRAZOLE SODIUM IV 80 MG in SODIUM CHLORIDE 0.9% IV 500 ML 50 MG IV CONT ×2 (09:06→20:25)
[2024-02-15 09:07] LABS: Percent Iron Saturation 4 % (20-50)
[2024-02-15 10:14] LABS: Mean Corpuscular HGB Conc 29.4 g/dl (32-36); Mean Corpuscular Hemoglobin 29.8 pg (26-34); Mean Corpuscular Volume 101.2 fl (80-100); Mean Platelet Volume 11.4 fl (7.4-10.4); Platelet Count Result 177 k/mm3 (150-375); Red Blood Count 1.68 M/mm3 (4.2-5.4); White Blood Count 11.1 K/mm3 (4.5-10.0)
[2024-02-15 10:45] LABS: Troponin I 0.076 ng/mL (0.000-0.034)
--- NOTE | 2024-02-15 11:07 | PM.CNCAR ---
Assessment and Plan Assessment and plan (1) Elevated troponin: Code(s): R79.89 - Other specified abnormal findings of blood chemistry Status: Acute (2) S/P CABG (coronary artery bypass graft): Code(s): Z95.1 - Presence of aortocoronary bypass graft Status: Acute (3) GI bleed: Code(s): K92.2 - Gastrointestinal hemorrhage, unspecified Status: Acute Plan this is a 78-year-old lady with a history of paroxysmal AFib for which she has been appropriately anticoagulated on also a history of multivessel coronary disease with recent 3 vessel bypass operation over at [facility]. She enters the hospital now with recent development of melanotic stool, presumably upper GI bleeding and symptomatic anemia. She is appropriately been given transfusion of red cell volume and is feeling better at this time. Obviously her apixaban needs to be stopped. She apparently is going to be going to the GI lab later today for endoscopic evaluation. Her admission is not indicative of an acute coronary problem but rather a type 2 infarction because of profound anemia. Mendel Lugo MD [facility] History of Present Illness History of Present Illness Consult date/time: 02/15/24 11:07 Reason For Visit: GI Bleed/Hemoglobin 4.5 on Eliquis Narrative: this is a 78-year-old woman I am seeing at the request of the hospitalist because of chest pain with elevation of her troponin. The lady is unknown to me prior to this encounter but she is an excellent historian. She is known to have paroxysmal atrial fibrillation as well as coronary artery disease. She came to this hospital yesterday feeling very weak with shortness of breath and some chest discomfort with minimal activity. This is been coming on gradually for several weeks. She also on further questioning provided a history of dark stools with a melanotic character. In the emergency room her hemoglobin was found to be 4.5 and she was admitted for further evaluation. She had been anticoagulated with apixaban because of her atrial fib. Obviously that has been stopped. Upon seeing her in the room she is comfortable and laying flat in bed and offers no complaints while she is at bed rest. She has been given a red cell transfusion for follow-up hemoglobin levels are pending at the time of this dictation. Troponin levels were sampled an are flat at 0.06, 0.07. I am seeing the patient in consultation at this time. She in addition AFib was found to have coronary artery disease earlier this year. 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 I do not have the details of that at the time of this dictation but the patient states that her postop recovery was essentially uneventful. She does not have any palpitations orthopnea PND or edema. The patient indicates that there are plans for her to undergo upper endoscopy later today I do not see GI consult note on the chart at the time of this dictation Review of Systems Constitutional: Constitutional: Reports as per HPI, Reports fatigue and Reports lethargy Eyes: Eyes: Reports no additional eye complaints ENT: Reports system reviewed and no additional complaints, except as documented Cardiovascular: Cardiovascular: Reports no additional cardiovascular complaints Respiratory: Respiratory: Reports dyspnea on exertion Gastrointestinal: Gastrointestinal: Reports as per HPI and Reports melena Musculoskeletal: Musculoskeletal: Reports no additional musculoskeletal complaints Integumentary/Breasts: Skin/Breast: Reports system reviewed and no additional complaints, except as docu Neurologic: Reports system reviewed and no additional complaints, except as documented Endocrine: Endocrine: Reports no additional endocrine complaints Hematologic/Lymphatic: Hematologic/Lymphatic:
[2024-02-15 11:35] LABS: Band Neutrophils Percent 2 % (0-6); Eosinophils Absolute Manual 0.22 K/mm3 (0.02-0.50); Eosinophils Percent Manual 2 % (0-4); Lymphocytes Absolute Manual 1.66 K/mm3 (1.1-4.5); Monocytes Absolute Manual 2.77 K/mm3 (0.1-0.90); Monocytes Percent Manual 25 % (3-9); Neutrophils Absolute Manual 6.43 K/mm3 (1.7-7.2); Neutrophils Percent Manual 56 % (46-73); Platelet Estimate Adequate (Adequate); Total Cells Counted 100
[2024-02-15 11:36] LABS: Anisocytosis 1+; Macrocytosis 1+ (NORMAL); Schistocytes None Seen
[2024-02-15 11:37] LABS: Polychromasia 1+
--- NOTE | 2024-02-15 12:15 | PC.NURSE ---
spoke with dr cheek per gi lab anesthesia request and he is ok with her getting the egd, lab had not eta on blood due to they are unaware of what type of antibody she has and are still awaiting results, gi lab will notify anesthesia and will consult with on if they will do the procedure today or wait until she has received blood
--- NOTE | 2024-02-15 14:15 | PC.NURSE ---
lab unable to get warm auto antibody blood, spoke with dr skinner about need for best match blood per lab and he agrees, consent filled out and sent to lab
[2024-02-15] MEDS: SODIUM CHLORIDE 0.9% IV 250 ML 30 ML IV CONT (16:00)
[2024-02-15] MEDS: TUBING, BLOOD PLUM PUMP TUBING 1 EACH XX (16:15)
--- NOTE | 2024-02-15 18:26 | WPDGICN ---
Assessment and Plan Assessment and plan (1) GI bleed: Code(s): K92.2 - Gastrointestinal hemorrhage, unspecified Status: Acute Assessment and Plan: probably upper source iv protonix monitor for more signs of bleeding eliquis on hold keep hgb>7, getting blood transfusion egd tomorrow (2) Melena: Code(s): K92.1 - Melena Status: Acute Assessment and Plan: admitted iv protonix egd in am (3) Elevated troponin: Code(s): R79.89 - Other specified abnormal findings of blood chemistry Status: Acute Assessment and Plan: flat, no more pain by cardiology probably induced by severe anemia (4) Chest pain: Code(s): R07.9 - Chest pain, unspecified Status: Acute (5) Acute on chronic anemia: Code(s): D64.9 - Anemia, unspecified Status: Acute (6) CAD (coronary artery disease): Code(s): I25.10 - Atherosclerotic heart disease of [place] coronary artery without angina pectoris Status: Acute (7) Blood thinned due to long-term anticoagulant use: Code(s): Z79.01 - termite technician (current) use of anticoagulants Status: Acute Assessment and Plan: on hold GI Consult Note Consult date/time: 02/15/24 18:26 Reason for consult: melena, acute anemia HPI: Cassandra Martinez is a 78 year old female with history of paroxysmal atrial fibrillation as well as coronary artery disease on eliquis. Here with new onset of feeling very weak with shortness of breath and some chest discomfort with minimal activity that started few weeks ago. Also noted dark stools for several days. In the emergency room her hemoglobin was found to be 4.5 and she was admitted for further evaluation. Troponin levels were sampled an are flat at 0.06, 0.07. Cardiology evaluated patient. She had colonoscopy about 3 years ago, never EGD. She is getting blood transfusion. Review of Systems Constitutional: Constitutional: Reports fatigue and Reports weakness Eyes: Eyes: Denies blurry vision ENT: Reports Normal hearing present, Denies headache(s) and Denies neck pain Cardiovascular: Cardiovascular: Reports chest pain Respiratory: Respiratory: Reports dyspnea on exertion Gastrointestinal: Gastrointestinal: Reports melena Genitourinary: Genitourinary: Denies dysuria Musculoskeletal: Musculoskeletal: Denies neck pain Integumentary/Breasts: Skin/Breast: Denies dry skin Neurologic: Reports Normal hearing present and Denies headache(s) Psychiatric: Psychiatric: Denies anxiety Endocrine: Endocrine: Denies change in body appearance Allergic/Immunologic: Allergic/Immunologic: Denies urticaria PMFSH Past Medical History Medical History (Updated 02/15/24 @ 18:32 by Joseph Kraft MD) Acute on chronic anemia Blood thinned due to long-term anticoagulant use CAD (coronary artery disease) Carcinoma of lung (~07/2020) RUL Carotid stenosis Chronic low back pain Essential (primary) hypertension GERD (gastroesophageal reflux disease) History of colon polyps Lumbar disc disease Melena Monoclonal gammopathy Ocular myasthenia gravis Splenic laceration (~09/2021) Vitamin B12 deficiency Surgical History Surgical History H/O cardiac radiofrequency ablation 08/2021 H/O splenectomy (~09/2021) History of ankle surgery (~2003) History of hand surgery (~11/2018) History of hysterectomy (~1992) History of lobectomy of lung 09/05 - Right upper lobe History of tonsillectomy (~1954) Status post trigger finger release 10/05 - right hand Family History Family History Mother Cerebrovascular accident Sibling Cerebrovascular accident Father Family history of heart disease in male family member before age 55 Emphysema of lung Social History Social History Social History: Caffeine-coffee
[2024-02-15] MEDS: ATORVASTATIN 40 MG TABLET PO (20:25)
[2024-02-16] VITALS (22 sets, daily range): BP systolic 131–185; BP diastolic 50–92; PULSE 74–93; RESP 16–36; TEMP 36.2–37; O2SAT 96–100
[2024-02-16 05:34] LABS: Hematocrit 30.3 % (37.0-47.0); Hemoglobin 9.3 g/dL (12.0-15.0); Mean Corpuscular HGB Conc 30.7 g/dl (32-36); Mean Corpuscular Hemoglobin 29.2 pg (26-34); Mean Corpuscular Volume 95.3 fl (80-100); Mean Platelet Volume 12.2 fl (7.4-10.4); Platelet Count Result 131 k/mm3 (150-375); Red Blood Count 3.18 M/mm3 (4.2-5.4); Red Cell Distribution Width 16.5 % (11.5-14.5); White Blood Count 12.9 K/mm3 (4.5-10.0)
[2024-02-16 05:57] LABS: Anisocytosis 2+; Band Neutrophils Percent 2 % (0-6); Eosinophils Absolute Manual 0.12 K/mm3 (0.02-0.50); Eosinophils Percent Manual 1 % (0-4); Lymphocytes Absolute Manual 1.41 K/mm3 (1.1-4.5); Microcytosis 1+ (NORMAL); Monocytes Absolute Manual 2.58 K/mm3 (0.1-0.90); Monocytes Percent Manual 20 % (3-9); Neutrophils Absolute Manual 8.77 K/mm3 (1.7-7.2); Neutrophils Percent Manual 66 % (46-73); Nucleated Red Blood Cells 5 %; Platelet Estimate Adequate (Adequate); Total Cells Counted 100
[2024-02-16 05:58] LABS: Hypochromasia 1+; Poikilocytosis 1+; Schistocytes None Seen
[2024-02-16] MEDS: PANTOPRAZOLE SODIUM IV 80 MG in SODIUM CHLORIDE 0.9% IV 500 ML 50 MG IV CONT (05:59)
[2024-02-16 06:13] LABS: Anion Gap 8 mmol/L (4-12); Blood Urea Nitrogen 33 mg/dL (7-17); Calcium 8.3 mg/dL (8.4-10.2); Carbon Dioxide 23 mmol/L (22-30); Chloride 107 mmol/L (98-107); Estimated CRCL calculation 41 ml/min; Estimated Glomerular Filt Rate > 60; Glucose 108 mg/dL (65-110); Potassium 4.3 mmol/L (3.4-5.0); Sodium 138 mmol/L (137-145)
--- NOTE | 2024-02-16 06:53 | PC.NURSE ---
Pt. taken to GI lab for scheduled egd. Report given to Laya caraballo.
[2024-02-16] MEDS: LACTATED RINGERS 1,000 ML 150 ML IV CONT (07:13)
--- NOTE | 2024-02-16 08:09 | WPDANESEPPF ---
Anes - Initial Pre Proc Eval Procedure: Operation Date: 02/15/24 16:00 Proposed Procedures p Esophagogastroduodenoscopy - Joseph Kraft MD Operation Date: 02/16/24 08:00 Proposed Procedures p Esophagogastroduodenoscopy - Joseph Kraft MD Date/Time: 02/16/24 08:09 Surgeon: Keiry Soto DO Pre Op Diagnosis: GI Bleed/Hemoglobin 4.5 on Eliquis Patient Data Age: 78 Gender: F Height: 1.6 m Weight: 57.7 kg Last Vital Signs Temp 97.1 F L 02/16/24 07:08 Pulse 93 02/16/24 07:08 Resp 24 H 02/16/24 07:08 BP 185/92 H 02/16/24 07:08 Pulse Ox 98 02/16/24 07:08 O2 Del Method Room Air 02/16/24 07:08 Allergies Allergy/AdvReac Type Severity Reaction Status Date / Time Penicillins Allergy Intermediate hives Verified 12/07/23 13:04 Home Medications Medication Instructions Recorded Confirmed Type cholecalciferol (vitamin D3) 25 1,000 unit PO DAILY 06/06/19 02/15/24 History mcg (1,000 unit) tablet cyanocobalamin (vitamin B-12) 5,000 mcg PO DAILY 06/06/19 02/15/24 History 5,000 mcg capsule fluticasone propionate 50 2 spray intranasal DAILY 06/06/19 02/15/24 History mcg/actuation nasal spray,suspension (Flonase Allergy Relief) apixaban 5 mg tablet (Eliquis) 5 mg PO BID 09/21/21 02/15/24 History aspirin 81 mg tablet,delayed 81 mg PO DAILY 09/21/21 02/15/24 History release pyridostigmine bromide 60 mg tablet 60 mg PO ONCE PRN Bladder Spasms 07/04/23 02/15/24 History atorvastatin 40 mg tablet 40 mg PO QHS #90 tabs 11/19/23 02/15/24 Rx metoprolol tartrate 25 mg tablet 25 mg PO BID 12/07/23 02/15/24 History olmesartan 40 mg tablet 40 mg PO DAILY #90 tabs 01/28/24 02/15/24 Rx Laboratory Tests 02/15/24 02/15/2424 04:14 07:21 10:08 WBC 11.1 H K/mm3 (4.5-10.0) RBC 1.68 L M/mm3 (4.2-5.4) Hgb 5.0 L* g/dL (12.0-15.0) Hct 17.0 L* % (37.0-47.0) MCV 101.2 H fl (80-100) MCH 29.8 pg (26-34) MCHC 29.4 L g/dl (32-36) RDW 16.0 H % (11.5-14.5) Plt Count 177 k/mm3 (150-375) MPV 11.4 H fl (7.4-10.4) Immature Gran % (Auto) Not Reportable Neut % (Auto) Not Reportable Lymph % (Auto) Not Reportable [place] % (Auto) Not Reportable Eos % (Auto) Not Reportable Baso % (Auto) Not Reportable Lymph # (Auto) Not Reportable [place] # (Auto) Not Reportable Eos # (Auto) Not Reportable Baso # (Auto) Not Reportable Abs Immat Gran (auto) Not Reportable Absolute Neuts (auto) Not Reportable Absolute Nucleated RBC Not Reportable Total Counted 100 Neutrophils % (Manual) 56 % (46-73) Band Neutrophils % 2 % (0-6) Lymphocytes % (Manual) 15.0 L % (18-44) Monocytes % (Manual) 25 H % (3-9) Eosinophils % (Manual) 2 % (0-4) Nucleated RBC % Not Reportable Abs Neuts (Manual) 6.43 K/mm3 (1.7-7.2) Abs Lymphs (Manual) 1.66 K/mm3 (1.1-4.5) Abs Monocytes (Manual) 2.77 H K/mm3 (0.1-0.90) Absolute Eos (Manual) 0.22 K/mm3 (0.02-0.50) Nucleated RBCs Platelet Estimate Adequate (Adequate) Polychromasia 1+ Hypochromasia Poikilocytosis Anisocytosis 1+ Microcytosis Macrocytosis 1+ (NORMAL) Schistocytes None seen Sodium 140 mmol/L (137-145) Potassium 4.2 mmol/L (3.4-5.0) Chloride 107 mmol/L (98-107) Carbon Dioxide 25 mmol/L (22-30) Anion Gap 8 mmol/L (4-12) BUN 31 H mg/dL (7-17) Creatinine 0.80 mg/dL (0.7-1.0) Estim Creat Clear Calc 41 ml/min Estimated GFR > 60 (59 - ) Glucose 114 H mg/
[2024-02-16] MEDS: BENZOCAINE (*SP) 60 ML SPRAY CAN (HURRICAINE) 1 SPRAY MUCOUS MEM (08:15)
--- NOTE | 2024-02-16 09:30 | PC.NURSE ---
Back from GI Lab per RN, IV intact. Oxygen at 2L.
[2024-02-16] MEDS: PANTOPRAZOLE SODIUM IV 40 MG VIAL IV PUSH (10:08)
[2024-02-16] MEDS: OLMESARTAN MEDOXOMIL 20 MG TABLET 40 MG PO (10:08)
[2024-02-16] MEDS: METOPROLOL TARTRATE 25 MG TABLET PO ×2 (10:09→21:00)
--- NOTE | 2024-02-16 11:22 | PM.IMPN ---
Progress Note: A&P Assessment and Plan (1) S/P CABG (coronary artery bypass graft): Code(s): Z95.1 - Presence of aortocoronary bypass graft Status: Acute Assessment and Plan: Stable on current medications, will continue current repeat about because of. (2) GERD (gastroesophageal reflux disease): Qualifiers: Esophagitis presence: without esophagitis Qualified Code(s): K21.9 - Gastro-esophageal reflux disease without esophagitis Code(s): K21.9 - Gastro-esophageal reflux disease without esophagitis Status: Acute Assessment and Plan: Patient is scheduled for EGD. Patient hemoglobin stable. Will continue to monitor. (3) Essential (primary) hypertension: Code(s): I10 - Essential (primary) hypertension Status: Acute Assessment and Plan: Stable on current medication. (4) Elevated troponin: Code(s): R79.89 - Other specified abnormal findings of blood chemistry Status: Acute Assessment and Plan: Cardiology consult noted. No new intervention needed. (5) S/P triple vessel bypass: Code(s): Z95.1 - Presence of aortocoronary bypass graft Status: Acute Assessment and Plan: Stable (6) Atherosclerotic heart disease of [place] coronary artery without angina pectoris: Code(s): I25.10 - Atherosclerotic heart disease of [place] coronary artery without angina pectoris Status: Acute Assessment and Plan: Stable on current meds. (7) GI bleed: Code(s): K92.2 - Gastrointestinal hemorrhage, unspecified Status: Acute Assessment and Plan: GI following. Scheduled for EGD. Plan 02/16/2024 Patient hemoglobin is stable at present time. Patient was given patient. Patient coronary artery disease and hypertension stable. Plan is to continue current treatment monitor closely. Possible discharge in the morning. 78 years old lady with history of CAD status post CABG, hypertension, hyperlipidemia, brought to ED by EMS because of chest pain. Patient had chest pain 2 hours before arrival in the ED. Patient has recent bypass surgery in August this year. Upon arrival, patient was found pale. Patient head tire in black stool in past 1-2 weeks. Patient denied abdomen pain, nausea vomiting. Patient also denies fever, chills, focal weakness. Patient is on Eliquis at home. Dysuria.Upon arrival to ED, patient was afebrile, blood pressure is elevated, 159/62, tachypnea 23 pulse ox 100% on room air, lab showed severe anemia, hemoglobin 4.5, hemoglobin 9.4 on November 26, chemistry showed hypokalemia 3.2, elevated troponin 0.048, EKG shows sinus rhythm, no specific ST T-wave changes, chest x-ray showed minimal pleural effusion, possible minimal bibasilar pulmonary edema. Patient received 308 of pack RBC, ER physician also consulted GI. We admit patient will for evaluation treatment. Suspected GI bleeding, acute blood loss anemia, severe anemia Likely resulting from blood thinner, hold Eliquis Received 3 units pack RBC in the ED Keep patient p.o. Start Protonix drip Follow-up CBC, hemoglobin q.6 hours, Follow-up stool guaiac, iron panel Transfuse p.r.n. Keep patient NPO, gentle IV fluid Chest pain, elevated troponin Possible unstable angina due to severe anemia, elevated troponin possible due to demand ischemia Received 3 pack RBC, follow-up with hemoglobin q.6 hours, will keep hemoglobin level about 9 Patient received aspirin in the ED, continue Lipitor p.o. Follow-up echocardiogram Telemetry monitoring Consult sugar presser for evaluation treatment Fluid overloaded Patient received 3 pack RBC in the ED Chest x-ray showed pulmonary congestion Provide Lasix 20 mg IV push once Hypokalemia 3.3 Received potassium chloride 40 mEq once Corrected now Follow-up BMP Essential hypertension Continue Benicar 40 mg daily p.o. Patient may stay more than 2 night in the hospital based on patient's condition and ford
--- NOTE | 2024-02-16 12:15 | PC.NURSE ---
This patient, Cassandra Martinez, was transferred to [facility] on 02/16/24 at 1210. Personal belongings sent with patient. Report given to Yocasta GRIFFITHS. Appropriate documentation sent with patient. patient point of contact updated on room change.
--- NOTE | 2024-02-16 13:15 | PC.NURSE ---
This patient, Cassandra Martinez, was received from [facility] on 02/16/24 at 1315. Patient/family oriented to unit policies and routines. Report received per Yocasta GRIFFITHS
[2024-02-16] MEDS: FUROSEMIDE INJ 40 MG/4 ML VIAL 20 MG IV PUSH (17:17)
--- NOTE | 2024-02-16 17:32 | PC.NURSE ---
On 02/16/24, the AIRPORT DRIVER, Yocasta Bo, provided care and completed [employer] documentation on this patient. I have reviewed the AIRPORT DRIVER's documentation and agree with the findings.
[2024-02-16] MEDS: ATORVASTATIN 40 MG TABLET PO (21:00)
[2024-02-16] MEDS: ACETAMINOPHEN 325 MG TABLET 650 MG PO (22:29)
[2024-02-17 05:30] VITALS: BP 151/59; PULSE 83; RESP 16; TEMP 36.5; O2SAT 96
[2024-02-17 06:27] LABS: Hematocrit 26.4 % (37.0-47.0); Immature Platelet Fraction Pct 9.4 % (0.9-11.2); Mean Corpuscular HGB Conc 30.3 g/dl (32-36); Mean Corpuscular Hemoglobin 28.4 pg (26-34); Mean Corpuscular Volume 93.6 fl (80-100); Mean Platelet Volume 11.4 fl (7.4-10.4); Platelet Count Result 129 k/mm3 (150-375); Red Blood Count 2.82 M/mm3 (4.2-5.4)
[2024-02-17 07:02] LABS: Anion Gap 8 mmol/L (4-12); Blood Urea Nitrogen 23 mg/dL (7-17); Calcium 7.9 mg/dL (8.4-10.2); Carbon Dioxide 27 mmol/L (22-30); Chloride 103 mmol/L (98-107); Estimated CRCL calculation 41 ml/min; Estimated Glomerular Filt Rate > 60; Glucose 101 mg/dL (65-110); Potassium 2.9 mmol/L (3.4-5.0); Sodium 138 mmol/L (137-145)
[2024-02-17 07:03] LABS: Lactate Dehydrogenase 194 U/L (120-246)
[2024-02-17 07:11] LABS: Band Neutrophils Percent 5 % (0-6); Eosinophils Absolute Manual 0.26 K/mm3 (0.02-0.50); Eosinophils Percent Manual 2 % (0-4); Lymphocytes Percent Manual 10 % (18-44); Monocytes Absolute Manual 3.12 K/mm3 (0.1-0.90); Monocytes Percent Manual 24 % (3-9); Neutrophils Absolute Manual 8.32 K/mm3 (1.7-7.2); Neutrophils Percent Manual 59 % (46-73); Nucleated Red Blood Cells 7 %; Total Cells Counted 100
[2024-02-17 07:12] LABS: Anisocytosis 2+; Macrocytosis 1+ (NORMAL); Platelet Estimate Slightly Decreased (Adequate)
[2024-02-17 07:13] LABS: Basophilic Stippling 1+; Schistocytes None Seen
[2024-02-17 09:00] VITALS: PULSE 85
[2024-02-17] MEDS: OLMESARTAN MEDOXOMIL 20 MG TABLET 40 MG PO (09:00)
[2024-02-17] MEDS: METOPROLOL TARTRATE 25 MG TABLET PO ×2 (09:00→20:39)
[2024-02-17] MEDS: PANTOPRAZOLE SODIUM IV 40 MG VIAL IV PUSH (09:00)
[2024-02-17 09:41] LABS: IFOB Positive Control Positive; Immunochemical Fecal Occult Bl Positive (N)
--- NOTE | 2024-02-17 09:44 | PM.IMPN ---
Progress Note: A&P Assessment and Plan (1) S/P CABG (coronary artery bypass graft): Code(s): Z95.1 - Presence of aortocoronary bypass graft Status: Acute Assessment and Plan: Stable on current medications, will continue current repeat about because of. (2) GERD (gastroesophageal reflux disease): Qualifiers: Esophagitis presence: without esophagitis Qualified Code(s): K21.9 - Gastro-esophageal reflux disease without esophagitis Code(s): K21.9 - Gastro-esophageal reflux disease without esophagitis Status: Acute Assessment and Plan: Patient is clinically feeling better. Although hgb is 8. will monitor (3) Essential (primary) hypertension: Code(s): I10 - Essential (primary) hypertension Status: Acute Assessment and Plan: Stable on current medication. (4) Elevated troponin: Code(s): R79.89 - Other specified abnormal findings of blood chemistry Status: Acute Assessment and Plan: Cardiology consult noted. No new intervention needed. (5) S/P triple vessel bypass: Code(s): Z95.1 - Presence of aortocoronary bypass graft Status: Acute Assessment and Plan: Stable (6) Atherosclerotic heart disease of [place] coronary artery without angina pectoris: Code(s): I25.10 - Atherosclerotic heart disease of [place] coronary artery without angina pectoris Status: Acute Assessment and Plan: Stable on current meds. (7) GI bleed: Code(s): K92.2 - Gastrointestinal hemorrhage, unspecified Status: Acute Assessment and Plan: GI following. Hgb 8.0 Will monitor. Plan 02/16/2024 Patient hemoglobin is stable at present time. Patient was given patient. Patient coronary artery disease and hypertension stable. Plan is to continue current treatment monitor closely. Possible discharge in the morning. 02/17/2024 Patient is feeling better today. Although hemoglobin dropped to 8.0. Potassium is also low. Plan is to continue current treatment monitor hemoglobin closely, replace and monitor potassium also. 78 years old lady with history of CAD status post CABG, hypertension, hyperlipidemia, brought to ED by EMS because of chest pain. Patient had chest pain 2 hours before arrival in the ED. Patient has recent bypass surgery in August this year. Upon arrival, patient was found pale. Patient head tire in black stool in past 1-2 weeks. Patient denied abdomen pain, nausea vomiting. Patient also denies fever, chills, focal weakness. Patient is on Eliquis at home. Dysuria.Upon arrival to ED, patient was afebrile, blood pressure is elevated, 159/62, tachypnea 23 pulse ox 100% on room air, lab showed severe anemia, hemoglobin 4.5, hemoglobin 9.4 on November 26, chemistry showed hypokalemia 3.2, elevated troponin 0.048, EKG shows sinus rhythm, no specific ST T-wave changes, chest x-ray showed minimal pleural effusion, possible minimal bibasilar pulmonary edema. Patient received 308 of pack RBC, ER physician also consulted GI. We admit patient will for evaluation treatment. Suspected GI bleeding, acute blood loss anemia, severe anemia Likely resulting from blood thinner, hold Eliquis Received 3 units pack RBC in the ED Keep patient p.o. Start Protonix drip Follow-up CBC, hemoglobin q.6 hours, Follow-up stool guaiac, iron panel Transfuse p.r.n. Keep patient NPO, gentle IV fluid Chest pain, elevated troponin Possible unstable angina due to severe anemia, elevated troponin possible due to demand ischemia Received 3 pack RBC, follow-up with hemoglobin q.6 hours, will keep hemoglobin level about 9 Patient received aspirin in the ED, continue Lipitor p.o. Follow-up echocardiogram Telemetry monitoring Consult mixing operator for evaluation treatment Fluid overloaded Patient received 3 pack RBC in the ED Chest x-ray showed pulmonary congestion Provide Lasix 20 mg IV push once Hypokalemia 3.3 Received potassium chlo
--- NOTE | 2024-02-17 09:48 | WPDGIPROGNO ---
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 Status: Acute Assessment and Plan: eliquis on hold (4) CAD (coronary artery disease): Code(s): I25.10 - Atherosclerotic heart disease of [place] coronary artery without angina pectoris Status: Acute Subjective Date/time seen: 02/17/24 09:48 Interval history: egd yesterday negative to explain GIB she is stable now Review of Systems Review of Systems: All systems reviewed & are unremarkable except as noted in HPI and below Exam Const: General: comfortable HENMT: Mouth: Yes moist mucous membranes Eyes: Sclera: sclerae normal Neck: Neck: supple Resp: Effort & Inspection: normal respiratory effort Auscultation: clear to auscultation bilaterally Cardio: Rate: regular rate Rhythm: regular rhythm GI: GI Palp: Yes Soft to palpation, No Tenderness to palpation present (GI) and No Guarding due to palpation present (GI) Auscultation: normal bowel sounds Skin: General skin exam: no rashes or lesions noted Other: pale Neuro: Speech: normal speech Motor exam (neuro): 5/5 motor strength present throughout Other: alert and oriented Extrem: General: normal to inspection Psych: Mental Status: mental status grossly normal Objective Data Vital Signs Vital Signs: Vital Signs - 24 hr 02/16/24 09:53 02/16/24 09:59 02/16/24 10:09 Temperature 98.2 F Pulse Rate 84 83 Respiratory Rate 20 Blood Pressure 177/70 H Pulse Oximetry 100 100 Oxygen Delivery Nasal Cannula Oxygen Flow Rate 2 02/16/24 10:00 02/16/24 13:20 02/16/24 21:00 Temperature Pulse Rate 85 79 Respiratory Rate Blood Pressure Pulse Oximetry 98 Oxygen Delivery Room Air Oxygen Flow Rate 02/16/24 21:22 02/17/24 05:30 02/17/24 09:00 Temperature 98.6 F 97.7 F Pulse Rate 93 83 85 Respiratory Rate 18 16 Blood Pressure 150/50 H 151/59 H Pulse Oximetry 96 96 Oxygen Delivery Oxygen Flow Rate Intake/Output Intake/Output: Intake & Output 02/14/24 02/15/24 02/16/24 02/17/24 23:59 23:59 23:59 23:59 Intake Total 1322.5 1518.3 600 Output Total 650 700 Balance 672.5 818.3 600 Meds/Results Medications: Active Medications Generic Name Dose Route Start Last Admin Trade Name Freq PRN Reason Stop Dose Admin Acetaminophen 650 mg 02/16/24 21:52 02/16/24 22:29 Acetaminophen 325 Mg Tablet PO 650 mg Q6H PRN Administration Mild Pain (1-3) or Fever Atorvastatin Calcium 40 mg 02/15/24 21:00 02/16/24 21:00 Atorvastatin 40 Mg Tablet PO 40 mg QHS ALYX Administration Potassium Chloride 40 meq/ 520 mls @ 130 mls/hr 02/17/24 09:42 Sodium Chloride IVPB 02/17/24 13:41 ONCE ONE Metoprolol Tartrate 25 mg 02/15/24 09:00 02/17/24 09:00 Metoprolol Tartrate 25 Mg Tablet PO 25 mg Q12HR ALYX Administration Multivitamins/Minerals 15 ml 02/18/24 09:00 Multivit W/ Iron, Minerals 15 Ml Liquid (*Bkc) PO DAILY ALYX Olmesartan 40 mg 02/15/24 09:00 02/17/24 09:00 Olmesartan Medoxomil 20 Mg Tablet PO 40 mg QAM ALYX Administration Pantoprazole Sodium 40 mg 02/16/24 09:40 02/17/24 09:00 Pantoprazole Sodium Iv 40 Mg Vial IV PUSH 40 mg QAM ALYX Administration Perflutren Lipid Microsphere 0 ml 02/15/24 08:32 Perflutren Lipid Microspheres 1.5 Ml Vial Diluted To 10 Ml Total Volume IV PUSH 02/17
[2024-02-17] MEDS: POTASSIUM CHLORIDE 20 MEQ ER TABLET PO (11:48)
[2024-02-17] MEDS: POTASSIUM CHLORIDE INJ 40 MEQ in SODIUM CHLORIDE 0.9% IV 500 ML 75 MEQ IVPB (11:48)
[2024-02-17 13:58] VITALS: BP 144/50; PULSE 73; RESP 18; TEMP 37.2; O2SAT 98
[2024-02-17] MEDS: ATORVASTATIN 40 MG TABLET PO (20:39)
[2024-02-17 22:00] VITALS: BP 160/62; PULSE 74; RESP 18; TEMP 37.2; O2SAT 98
[2024-02-18 05:19] VITALS: BP 160/52; PULSE 77; RESP 18; TEMP 36.9; O2SAT 98
[2024-02-18 05:57] LABS: Hemoglobin 7.5 g/dL (12.0-15.0); Immature Platelet Fraction Pct 8.1 % (0.9-11.2); Mean Corpuscular Hemoglobin 28.8 pg (26-34); Mean Corpuscular Volume 96.2 fl (80-100); Mean Platelet Volume 12.2 fl (7.4-10.4); Platelet Count Result 137 k/mm3 (150-375); Red Cell Distribution Width 15.9 % (11.5-14.5); White Blood Count 13.7 K/mm3 (4.5-10.0)
[2024-02-18 06:15] LABS: Alanine Aminotransferase 8 U/L (6-35); Albumin Level 3.1 g/dL (3.5-5.1); Alkaline Phosphatase 67 U/L (38-126); Anion Gap 7 mmol/L (4-12); Aspartate Amino Transferase 17 U/L (14-36); Bilirubin,Total 1.8 mg/dL (0.2-1.3); Blood Urea Nitrogen 15 mg/dL (7-17); Calcium 8.1 mg/dL (8.4-10.2); Carbon Dioxide 25 mmol/L (22-30); Chloride 105 mmol/L (98-107); Estimated CRCL calculation 41 ml/min; Estimated Glomerular Filt Rate > 60; Glucose 102 mg/dL (65-110); Potassium 3.6 mmol/L (3.4-5.0); Sodium 137 mmol/L (137-145)
[2024-02-18 08:27] LABS: Lymphocytes Absolute Manual 0.68 K/mm3 (1.1-4.5); Lymphocytes Percent Manual 5 % (18-44); Monocytes Absolute Manual 5.34 K/mm3 (0.1-0.90); Monocytes Percent Manual 39 % (3-9); Neutrophils Percent Manual 56 % (46-73); Nucleated Red Blood Cells 6 %; Platelet Estimate Adequate (Adequate); Total Cells Counted 100
[2024-02-18 08:28] LABS: Polychromasia 1+
[2024-02-18 08:29] LABS: Anisocytosis 2+; Macrocytosis 1+ (NORMAL); Microcytosis 1+ (NORMAL)
[2024-02-18 08:30] LABS: Schistocytes Rare
[2024-02-18 08:38] VITALS: PULSE 72
[2024-02-18] MEDS: OLMESARTAN MEDOXOMIL 20 MG TABLET 40 MG PO (08:38)
[2024-02-18] MEDS: MULTIVIT W/ IRON, MINERALS 15 ML LIQUID (*BKC) PO (08:38)
[2024-02-18] MEDS: METOPROLOL TARTRATE 25 MG TABLET PO ×2 (08:38→20:12)
[2024-02-18] MEDS: PANTOPRAZOLE SODIUM IV 40 MG VIAL IV PUSH (08:38)
[2024-02-18] MEDS: ACETAMINOPHEN 325 MG TABLET 650 MG PO (08:45)
--- NOTE | 2024-02-18 11:26 | PM.IMPN ---
Progress Note: A&P Assessment and Plan (1) S/P CABG (coronary artery bypass graft): Code(s): Z95.1 - Presence of aortocoronary bypass graft Status: Acute Assessment and Plan: Stable on current medications, will continue current repeat about because of. (2) GERD (gastroesophageal reflux disease): Qualifiers: Esophagitis presence: without esophagitis Qualified Code(s): K21.9 - Gastro-esophageal reflux disease without esophagitis Code(s): K21.9 - Gastro-esophageal reflux disease without esophagitis Status: Acute Assessment and Plan: Patient is clinically feeling better. Although hgb is 8. will monitor (3) Essential (primary) hypertension: Code(s): I10 - Essential (primary) hypertension Status: Acute Assessment and Plan: Stable on current medication. (4) Elevated troponin: Code(s): R79.89 - Other specified abnormal findings of blood chemistry Status: Acute Assessment and Plan: Cardiology consult noted. No new intervention needed. (5) S/P triple vessel bypass: Code(s): Z95.1 - Presence of aortocoronary bypass graft Status: Acute Assessment and Plan: Stable (6) Atherosclerotic heart disease of [place] coronary artery without angina pectoris: Code(s): I25.10 - Atherosclerotic heart disease of [place] coronary artery without angina pectoris Status: Acute Assessment and Plan: Stable on current meds. (7) GI bleed: Code(s): K92.2 - Gastrointestinal hemorrhage, unspecified Status: Acute Assessment and Plan: GI following. Hgb 8.0 Will monitor. Plan 02/16/2024 Patient hemoglobin is stable at present time. Patient was given patient. Patient coronary artery disease and hypertension stable. Plan is to continue current treatment monitor closely. Possible discharge in the morning. 02/17/2024 Patient is feeling better today. Although hemoglobin dropped to 8.0. Potassium is also low. Plan is to continue current treatment monitor hemoglobin closely, replace and monitor potassium also. 02/18/2024 Patient hemoglobin is 7.5 today. No acute bleeding noted. Patient advised to walk. With monitor CBC in the morning. If stays okay will discharge home. 78 years old lady with history of CAD status post CABG, hypertension, hyperlipidemia, brought to ED by EMS because of chest pain. Patient had chest pain 2 hours before arrival in the ED. Patient has recent bypass surgery in August this year. Upon arrival, patient was found pale. Patient head tire in black stool in past 1-2 weeks. Patient denied abdomen pain, nausea vomiting. Patient also denies fever, chills, focal weakness. Patient is on Eliquis at home. Dysuria.Upon arrival to ED, patient was afebrile, blood pressure is elevated, 159/62, tachypnea 23 pulse ox 100% on room air, lab showed severe anemia, hemoglobin 4.5, hemoglobin 9.4 on November 26, chemistry showed hypokalemia 3.2, elevated troponin 0.048, EKG shows sinus rhythm, no specific ST T-wave changes, chest x-ray showed minimal pleural effusion, possible minimal bibasilar pulmonary edema. Patient received 308 of pack RBC, ER physician also consulted GI. We admit patient will for evaluation treatment. Suspected GI bleeding, acute blood loss anemia, severe anemia Likely resulting from blood thinner, hold Eliquis Received 3 units pack RBC in the ED Keep patient p.o. Start Protonix drip Follow-up CBC, hemoglobin q.6 hours, Follow-up stool guaiac, iron panel Transfuse p.r.n. Keep patient NPO, gentle IV fluid Chest pain, elevated troponin Possible unstable angina due to severe anemia, elevated troponin possible due to demand ischemia Received 3 pack RBC, follow-up with hemoglobin q.6 hours, will keep hemoglobin level about 9 Patient received aspirin in the ED, continue Lipitor p.o. Follow-up echocardiogram Telemetry monitoring Consult respiratory therapy aide for evaluation treatment Fluid ov
[2024-02-18 13:59] VITALS: BP 124/48; PULSE 72; RESP 18; TEMP 36.4; O2SAT 98
--- NOTE | 2024-02-18 14:17 | WPDGIPROGNO ---
Progress Note: A&P Assessment and Plan (1) Acute on chronic anemia: Code(s): D64.9 - Anemia, unspecified Status: Acute Assessment and Plan: hgb stable after blood transfusion no more signs of gib but will proceed tomorrow to investigate with colonoscopy, she is agreeable (2) GI bleed: Code(s): K92.2 - Gastrointestinal hemorrhage, unspecified Status: Acute Assessment and Plan: egd negative, ldh normal SBFT no major findings colonoscopy tomorrow (3) Blood thinned due to long-term anticoagulant use: Code(s): Z79.01 - detention (current) use of anticoagulants Status: Acute Assessment and Plan: eliquis on hold (4) CAD (coronary artery disease): Code(s): I25.10 - Atherosclerotic heart disease of [place] coronary artery without angina pectoris Status: Acute Subjective Date/time seen: 02/18/24 14:17 Interval history: better, no more headache Review of Systems Review of Systems: All systems reviewed & are unremarkable except as noted in HPI and below Exam Const: General: comfortable HENMT: Mouth: Yes moist mucous membranes Eyes: Sclera: sclerae normal Neck: Neck: supple Resp: Effort & Inspection: normal respiratory effort Auscultation: clear to auscultation bilaterally Cardio: Rate: regular rate Rhythm: regular rhythm GI: GI Palp: Yes Soft to palpation, No Tenderness to palpation present (GI) and No Guarding due to palpation present (GI) Auscultation: normal bowel sounds Skin: General skin exam: no rashes or lesions noted Neuro: Speech: normal speech Motor exam (neuro): 5/5 motor strength present throughout Other: alert and oriented Extrem: General: normal to inspection Psych: Mental Status: mental status grossly normal Objective Data Vital Signs Vital Signs: Vital Signs - 24 hr 02/17/24 22:00 02/17/24 20:00 02/18/24 05:19 Temperature 98.9 F 98.5 F Pulse Rate 74 77 Respiratory Rate 18 18 Blood Pressure 160/62 H 160/52 H Pulse Oximetry 98 98 Oxygen Delivery Room Air 02/18/24 08:38 02/18/24 08:00 02/18/24 13:59 Temperature 97.5 F L Pulse Rate 72 72 Respiratory Rate 18 Blood Pressure 124/48 L Pulse Oximetry 98 Oxygen Delivery Room Air Intake/Output Intake/Output: Intake & Output 08/30/24 08/31/24 09/01/24 09/02/24 23:59 23:59 23:59 23:59 Intake Total 1322.5 1518.3 1320 730 Output Total 650 700 Balance 672.5 818.3 1320 730 Meds/Results Medications: Active Medications Generic Name Dose Route Start Last Admin Trade Name Freq PRN Reason Stop Dose Admin Acetaminophen 650 mg 02/16/24 21:52 02/18/24 08:45 Acetaminophen 325 Mg Tablet PO 650 mg Q6H PRN Administration Mild Pain (1-3) or Fever Atorvastatin Calcium 40 mg 02/15/24 21:00 02/17/24 20:39 Atorvastatin 40 Mg Tablet PO 40 mg QHS ALYX Administration Metoprolol Tartrate 25 mg 02/15/24 09:00 02/18/24 08:38 Metoprolol Tartrate 25 Mg Tablet PO 25 mg Q12HR ALYX Administration Multivitamins/Minerals 15 ml 02/18/24 09:00 02/18/24 08:38 Multivit W/ Iron, Minerals 15 Ml Liquid (*Bkc) PO 15 ml DAILY ALYX Administration Olmesartan 40 mg 02/15/24 09:00 02/18/24 08:38 Olmesartan Medoxomil 20 Mg Tablet PO 40 mg QAM ALYX Administration Pantoprazole Sodium 40 mg 02/16/24 09:40 02/18/24 08:38 Pantoprazole Sodium Iv 40 Mg Vial IV PUSH 40 mg QAM ALYX Administration Radiology Results: ITS Impressions Chest X-Ray 02/15/24 05:42 Impression: Minimal pleural effusions with possible minimal bibasilar pulmonary edema. Status post CABG. Upper GI and Small Bowel X-Ray 02/16/24 13:28 IMPRESSION: 1: Normal small bowel series. Labs Labs: Laboratory Results - last 24 hr 02/18/24 05:37 WBC 13.7 H RBC 2.60 L Hgb 7.5 L Hct 25.0 L MCV 96.2 MCH 28.8 MCHC 30.0 L RDW 15.9 H Plt Count 137 L MPV 12.2 H Immature Gran % (Aut
[2024-02-18] MEDS: BISACODYL 5 MG TABLET EC 20 MG PO (17:15)
[2024-02-18] MEDS: polyethylene glycoL 3350 238 GM BOTTLE PO (17:15)
[2024-02-18] MEDS: ATORVASTATIN 40 MG TABLET PO (20:13)
[2024-02-18 20:58] VITALS: BP 151/53; PULSE 73; RESP 13; TEMP 36.7; O2SAT 99
[2024-02-19] VITALS (9 sets, daily range): BP systolic 113–174; BP diastolic 42–93; PULSE 65–79; RESP 14–24; TEMP 36.3–37.2; O2SAT 96–100; BMI 22.4
[2024-02-19] MEDS: MAGNESIUM CITRATE 300 ML BTL PO (02:02)
[2024-02-19 07:30] LABS: Basophils Absolute Auto 0.1 K/mm3 (0.0-0.1); Basophils Percent Auto 0.4 % (0.2-1.2); Eosinophils Absolute Auto 0.2 K/mm3 (0-0.3); Eosinophils Percent Auto 1.2 % (0-4.4); Hematocrit 26.9 % (37.0-47.0); Hemoglobin 7.8 g/dL (12.0-15.0); Immature Granulocyte Absolute 0.17 K/mm3 (0.00-0.031); Immature Granulocyte Percent A 1.3 % (0-0.5); Lymphocytes Absolute Auto 0.85 K/mm3 (0.9-3.2); Lymphocytes Percent Auto 6.3 % (18.3-44.2); Mean Corpuscular Hemoglobin 28.3 pg (26-34); Mean Corpuscular Volume 97.5 fl (80-100); Mean Platelet Volume 11.5 fl (7.4-10.4); Monocytes Percent Auto 44.4 % (2.6-8.5); Neutrophils Absolute Auto 6.3 K/mm3 (1.3-6.7); Neutrophils Percent Auto 46.4 % (45.5-73.1); Nucleated Red Blood Cells Perc 1.6 % (0.0-0.2); Platelet Count Result 171 k/mm3 (150-375); Red Blood Count 2.76 M/mm3 (4.2-5.4); Red Cell Distribution Width 16.1 % (11.5-14.5); White Blood Count 13.5 K/mm3 (4.5-10.0)
[2024-02-19] MEDS: PANTOPRAZOLE SODIUM IV 40 MG VIAL IV PUSH (08:21)
[2024-02-19] MEDS: OLMESARTAN MEDOXOMIL 20 MG TABLET 40 MG PO (08:23)
[2024-02-19] MEDS: METOPROLOL TARTRATE 25 MG TABLET PO ×2 (08:23→20:31)
[2024-02-19 08:26] LABS: Hypochromasia 1+; Microcytosis 2+ (NORMAL); Platelet Estimate Adequate (Adequate); Schistocytes None Seen
[2024-02-19 09:24] LABS: Alanine Aminotransferase 9 U/L (6-35); Albumin Level 3.4 g/dL (3.5-5.1); Alkaline Phosphatase 73 U/L (38-126); Anion Gap 7 mmol/L (4-12); Aspartate Amino Transferase 20 U/L (14-36); Bilirubin,Total 1.5 mg/dL (0.2-1.3); Blood Urea Nitrogen 9 mg/dL (7-17); Calcium 8.5 mg/dL (8.4-10.2); Carbon Dioxide 23 mmol/L (22-30); Chloride 105 mmol/L (98-107); Estimated CRCL calculation 41 ml/min; Estimated Glomerular Filt Rate > 60; Glucose 109 mg/dL (65-110); Sodium 135 mmol/L (137-145)
--- NOTE | 2024-02-19 13:25 | PC.NURSE ---
To GI Lab via wheelchair.
[2024-02-19] MEDS: LACTATED RINGERS 1,000 ML 150 ML IV CONT (13:45)
--- NOTE | 2024-02-19 13:53 | P.PNIM_ITS ---
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 * Iron and B-12 deficiency * Iron panel * ferrous sulfate BID * Transfuse if Hgb <7.0 (5) Vitamin B12 deficiency: Code(s): E53.8 - Deficiency of other specified B group vitamins Status: Acute Assessment and Plan: * Resumed home medication (6) Essential (primary) hypertension: Code(s): I10 - Essential (primary) hypertension Status: Acute Assessment and Plan: * Resumed home olmesartan * BP elevated likely due to GI prep * will add hydralazine PRN systolic >180 Plan Code status: Full code per patient DVT prophylaxis: Lovenox Stress ulcer prophylaxis: Protonix 40 daily PT/OT notes: Ambulatory Disposition: Patient admitted to the medical unit for Acute anemia likely se[place] ndary to acute GI bleed, Patient to have colonoscopy today 02/18. Hgb stable at 7.8 after 5 units PRBC. Patient is ambulatory and plan to return home with son at discharge. Subjective Date/time seen: 02/19/24 13:53 Interval history: Admission: Medical Chart 78 years old lady with history of CAD status post CABG, hypertension, hyperlipidemia, brought to ED by EMS because of chest pain. Patient had chest pain 2 hours before arrival in the ED. Patient has recent bypass surgery in August this year. Upon arrival, patient was found pale. Patient head tire in black stool in past 1-2 weeks. Patient denied abdomen pain, nausea vomiting. Patient also denies fever, chills, focal weakness. Patient is on Eliquis at home. Dysuria.Upon arrival to ED, patient was afebrile, blood pressure is elevated, 159/62, tachypnea 23 pulse ox 100% on room air, lab showed severe anemia, hemoglobin 4.5, hemoglobin 9.4 on November 26, chemistry showed hypokalemia 3.2, elevated troponin 0.048, EKG shows sinus rhy
--- NOTE | 2024-02-19 13:53 | PM.IMPN ---
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 Iron and B-12 deficiency Iron panel ferrous sulfate BID Transfuse if Hgb <7.0 (5) Vitamin B12 deficiency: Code(s): E53.8 - Deficiency of other specified B group vitamins Status: Acute Assessment and Plan: Resumed home medication (6) Essential (primary) hypertension: Code(s): I10 - Essential (primary) hypertension Status: Acute Assessment and Plan: Resumed home olmesartan BP elevated likely due to GI prep will add hydralazine PRN systolic >180 Plan Code status: Full code per patient DVT prophylaxis: Lovenox Stress ulcer prophylaxis: Protonix 40 daily PT/OT notes: Ambulatory Disposition: Patient admitted to the medical unit for Acute anemia likely secondary to acute GI bleed, Patient to have colonoscopy today 02/18. Hgb stable at 7.8 after 5 units PRBC. Patient is ambulatory and plan to return home with son at discharge. Subjective Date/time seen: 02/19/24 13:53 Interval history: Admission: Medical Chart 78 years old lady with history of CAD status post CABG, hypertension, hyperlipidemia, brought to ED by EMS because of chest pain. Patient had chest pain 2 hours before arrival in the ED. Patient has recent bypass surgery in August this year. Upon arrival, patient was found pale. Patient head tire in black stool in past 1-2 weeks. Patient denied abdomen pain, nausea vomiting. Patient also denies fever, chills, focal weakness. Patient is on Eliquis at home. Dysuria.Upon arrival to ED, patient was afebrile, blood pressure is elevated, 159/62, tachypnea 23 pulse ox 100% on room air, lab showed severe anemia, hemoglobin 4.5, hemoglobin 9.4 on November 26, chemistry showed hypokalemia 3.2, elevated troponin 0.048, EKG shows sinus rhythm, no specific ST T-wave changes, chest x-ray showed minimal pleural effusion, possible minimal bibasilar pulmonary edema. Patient received 308 of pack RBC, ER physician also consulted GI 02/19/2024: Assumed care Patient in no acute distress, Hgb 7.8 today did no report blood in stool today. Patient scheduled for colonoscopy today. Holding ASA and Eliquis. Patient states CP has resolved. Review of Systems Review of Systems: All review of systems are negative except as noted in the history and physical examination. All systems reviewed & are unremarkable except as noted in HPI and below Exam Narrative: GENERAL: Pleasant, in no acute distress. Well-nourished. - EYES: EOMI. Anicteric. - HENT: Moist mucous membranes. Pale - LUNGS: Clear to auscultation bilaterally, no wheezing, rhonchi, or rales. - CARDIOVASCULAR: Regular rate and rhythm. No murmur. No JVD. - ABDOMEN: Soft, non tender and non-distended. No palpable masses. - EXTREMITIES: No edema. Peripheral pulses 2+. Non-tender. - NEUROLOGIC: No focal neurological deficits. CN II
--- NOTE | 2024-02-19 14:56 | P.PNAN_ITS ---
Anes - Eval Final PreProcedure Day of Procedure 02/19/24 14:56 Patient weight: normal Heart: regular rate and rhythm Lungs: decreased breath sounds Airway: Mallampati scale class II Neurological: alert and oriented Last oral intake: >/= 8 hours ASA classification: IV Emergent: no Anesthetic plan: proceed Anesthesia type and monitoring: general GIVS and standard monitoring Results Review: All pre-operative results and documents have been reviewed as part of the pre- operative evaluation. Informed Consent: The patient's anesthetic plan and its attendant risks and benefits were discussed with the patient/family/POA. Questions were solicited and answers provided to the satisfaction of the patient/family/POA.
--- NOTE | 2024-02-19 15:45 | PC.NURSE ---
Back from GI Lab.
[2024-02-19] MEDS: FERROUS SULFATE 325 MG TABLET DR PO (17:03)
--- NOTE | 2024-02-19 18:12 | PDONCCN ---
HPI - Date of Consult Date/Time: 02/19/24 18:12 Requesting Physician: Netta Hewitt APRN Primary Care Provider: Aliza Bain MD - Consult Narrative Reason for consult: Profound anemia Narrative: Cassandra Martinez is a 78 year old female with history of anemia, MGUS and stage I B lung cancer status post right upper lobe lobectomy in August 2020 came into the hospital with chest pain and feeling of indigestion start in day before the admission. She was found to be pale. Patient described that she had black stool in past 1-2 weeks duration. Denies any abdominal pain nausea and vomiting. Her hemoglobin was 4.5. Other labs showed iron 17 saturation of 4% with normal creatinine of 0.8. LDH was normal at 194. Labs also revealed elevated WBC count of 13.5 and normal platelet counts. Differential showed 44% monocytes and 46% neutrophils with immature granulocytes. Patient received 3 units of packed red blood cell. GI service was consulted. EGD on 02/15 came back normal. Colonoscopy on 02/18 showed diverticulosis and internal hemorrhoids. There was no active bleeding. Patient has a history of triple bypass and was on Eliquis that has been placed on hold due to possible GI bleed. She is feeling better after blood transfusion. Review of Systems - Review of Systems All systems reviewed & are unremarkable except as noted in HPI and bel - Neurologic Reports system reviewed and no additional complaints, except as documented, Reports hearing normal, Reports weakness, Denies headache(s) [facility] Medical History: Medical History (Last Reviewed 02/16/24 @ 08:09 by Bijan Alfredo DO) Acute on chronic anemia Blood thinned due to long-term anticoagulant use CAD (coronary artery disease) Carcinoma of lung Onset Date: ~07/2020 RUL Carotid stenosis Chronic low back pain Essential (primary) hypertension GERD (gastroesophageal reflux disease) History of colon polyps Lumbar disc disease Melena Monoclonal gammopathy Ocular myasthenia gravis Splenic laceration Onset Date: ~09/2021 Vitamin B12 deficiency Surgical History: Surgical History (Last Reviewed 02/16/24 @ 08:09 by Bijan Alfredo DO) H/O cardiac radiofrequency ablation 08/2021 H/O splenectomy Onset Date: ~09/2021 History of ankle surgery Onset Date: ~2003 History of hand surgery Onset Date: ~11/2018 History of hysterectomy Onset Date: ~1992 History of lobectomy of lung 09/05 - Right upper lobe History of tonsillectomy Onset Date: ~1954 Status post trigger finger release 10/05 - right hand Family History: Family History (Last Reviewed 02/16/24 @ 08:09 by Bijan Alfredo DO) Mother Cerebrovascular accident Sibling Cerebrovascular accident Father Family history of heart disease in male family member before age 55 Emphysema of lung - Social History Social History: Social History (Last Reviewed 02/16/24 @ 08:09 by Bijan Alfredo DO) Gender Identity: Gender identity (if verbalized by the patient): Female Alcohol Use: Alcohol intake: never Drinks per week: 1 Alcohol use details: beer Substance Use: Substance use: never Substance use type: does not use Others: Spiritual care concerns: No Living Arrangements: Living arrangements: with family Oppucation/Education: Occupation/Education: retired Smoking Status: Smoking status: Former smoker Tobacco type: cigarettes Approximate Smoking End Date: pt. stopped smoking 22 years ago Smoking Pack-years: Smoking packs per day: 0.5 Smoking cigarettes per day: 10.0 Years smoked: 40 Smoking pack-years: 20.00 Social Determinants of Health: Do You Feel Safe in your Home?: Yes Has the Lack of Transportation Kept You From Medical Appointments or From Getting Medications?: No Within the Past 12 Months, Were You Worried Whether Your Food Would Run Out Before You Got M
[2024-02-19 19:00] LABS: Immature Reticulocyte Fraction 23.4 % (3.0-15.9); Reticulocyte Hemoglobin Conten 27.9 pg (28.2-36.6); Reticulocyte Percent 6.48 % (0.7-4.3)
[2024-02-19 19:38] LABS: Reticulocytes Absolute 0.21 10^6/uL (0.02-0.10)
[2024-02-19] MEDS: IRON SUCROSE COMPLEX 400 MG, IRON SUCROSE COMPLEX 100 MG in SODIUM CHLORIDE 0.9% IV 250 ML 78.57 MG IVPB (20:31)
[2024-02-19] MEDS: ATORVASTATIN 40 MG TABLET PO (20:31)
[2024-02-20] VITALS (16 sets, daily range): BP systolic 134–171; BP diastolic 46–69; PULSE 64–78; RESP 16–20; TEMP 36.5–37.1; O2SAT 93–100
[2024-02-20] MEDS: ACETAMINOPHEN 325 MG TABLET 650 MG PO ×3 (06:32→23:37)
--- NOTE | 2024-02-20 09:08 | WPDMODSED ---
Moderate Sedation Note-Pt Data Patient Data Diagnosis: anemia Present Complaint: anemia Procedure to be performed/Plan: bone marrow biopsy Allergies Allergy/AdvReac Type Severity Reaction Status Date / Time Penicillins Allergy Intermediate hives Verified 02/19/24 13:38 Home Medications Medication Instructions Recorded Confirmed Type cholecalciferol (vitamin D3) 25 1,000 unit PO DAILY 06/06/19 02/15/24 History mcg (1,000 unit) tablet cyanocobalamin (vitamin B-12) 5,000 mcg PO DAILY 06/06/19 02/15/24 History 5,000 mcg capsule fluticasone propionate 50 2 spray intranasal DAILY 06/06/19 02/15/24 History mcg/actuation nasal spray,suspension (Flonase Allergy Relief) apixaban 5 mg tablet (Eliquis) 5 mg PO BID 09/21/21 02/15/24 History aspirin 81 mg tablet,delayed 81 mg PO DAILY 09/21/21 02/15/24 History release pyridostigmine bromide 60 mg tablet 60 mg PO ONCE PRN Bladder Spasms 07/04/23 02/15/24 History atorvastatin 40 mg tablet 40 mg PO QHS #90 tabs 11/19/23 02/15/24 Rx metoprolol tartrate 25 mg tablet 25 mg PO BID 12/07/23 02/15/24 History olmesartan 40 mg tablet 40 mg PO DAILY #90 tabs 01/28/24 02/15/24 Rx Current Medications: Active Medications Acetaminophen (Acetaminophen 325 Mg Tablet) 650 mg PO Q6H PRN PRN Reason: Mild Pain (1-3) or Fever Last Admin: 02/20/24 06:32 Dose: 650 mg Atorvastatin Calcium (Atorvastatin 40 Mg Tablet) 40 mg PO QHS [facility] Last Admin: 02/19/24 20:31 Dose: 40 mg Ferrous Sulfate (Ferrous Sulfate [address]) 325 mg PO BID [facility] Last Admin: 02/19/24 17:03 Dose: 325 mg Metoprolol Tartrate (Metoprolol Tartrate 25 Mg Tablet) 25 mg PO Q12HR [facility] Last Admin: 02/19/24 20:31 Dose: 25 mg Multivitamins Therapeutic (Multivitamins Therapeutic Tab (*Bkc)) 1 tablet PO QAM [facility] Neomycin/Polymyxin/Bacitracin (Neomycin/Polymyxin/Bacitracin Ointment 15 Gm Tube) 1 applic TOPICAL PRN PRN PRN Reason: with dressing changes Olmesartan (Olmesartan Medoxomil 20 Mg Tablet) [facility] [place] Last Admin: 02/19/24 08:23 Dose: 40 mg Pantoprazole Sodium (Pantoprazole Sodium Iv 40 Mg Vial) 40 mg IV [facility]USH [facility] [place] Last Admin: 02/19/24 08:21 Dose: 40 mg Sedation/Anesthesia: No previous sedation/anesthesia problems (including family history). [facility] Past Medical History Medical History Acute on chronic anemia Blood thinned due to long-term anticoagulant use CAD (coronary artery disease) Carcinoma of lung (~07/2020) RUL Carotid stenosis Chronic low back pain Essential (primary) hypertension GERD (gastroesophageal reflux disease) History of colon polyps Lumbar disc disease Melena Monoclonal gammopathy Ocular myasthenia gravis Splenic laceration (~09/2021) Vitamin B12 deficiency Surgical History Surgical History H/O cardiac radiofrequency ablation 08/2021 H/O splenectomy (~09/2021) History of ankle surgery (~2003) History of hand surgery (~11/2018) History of hysterectomy (~1992) History of lobectomy of lung 09/05 - Right upper lobe History of tonsillectomy (~1954) Status post trigger finger release 10/05 - right hand Family History Family History Mother Cerebrovascular accident Sibling Cerebrovascular accident Father Family history of heart disease in male family member before age 55 Emphysema of lung Social History Social History Social History: Caffeine-coffee Smoking packs per day: 0.5 Smoking cigarettes per day: 10.0 Years smoked: 40 Smoking pack-years: 20.00 Smoking status: Former smoker Tobacco type: cigarettes Alcohol intake: never Drinks per week: 1 Alcohol use details: beer Substance use: never Substance use type: does not use Do You Feel Safe in your Home?: Yes L
--- NOTE | 2024-02-20 10:42 | PCNFU ---
Nutrition Follow-Up Complete: Inadequate energy intake related to diet orders and altered GI function as evidenced by NPO and clear liquid diet orders Goal:Meet estimated needs Pt progressing to goal. Continue with same goal Pt current nutrition is Regular, Ensure compact BID. Nutrition recommendation: continue with current plan of care Last recorded weight is 58.5 kg. Bowel Motility: +BM 02/18 Labs Reviewed: Hgb:4.5, HCT:15.1, Alb:3.4, BUN:31 Meds Noted: protonix Skin: WNL Additional Notes: Pt diet advanced to regular, intake good so far. Continue with current plan of care, encourage po intake. Monitor diet orders, wt, labs. Follow up in 5 day.
[2024-02-20 11:46] LABS: Basophils Percent Auto 0.3 % (0.2-1.2); Eosinophils Absolute Auto 0.1 K/mm3 (0-0.3); Eosinophils Percent Auto 0.6 % (0-4.4); Hematocrit 27.3 % (37.0-47.0); Hemoglobin 8.1 g/dL (12.0-15.0); Immature Granulocyte Absolute 0.18 K/mm3 (0.00-0.031); Immature Granulocyte Percent A 1.4 % (0-0.5); Lymphocytes Absolute Auto 0.76 K/mm3 (0.9-3.2); Lymphocytes Percent Auto 5.7 % (18.3-44.2); Mean Corpuscular HGB Conc 29.7 g/dl (32-36); Mean Corpuscular Hemoglobin 28.7 pg (26-34); Mean Corpuscular Volume 96.8 fl (80-100); Mean Platelet Volume 11.6 fl (7.4-10.4); Monocytes Absolute Auto 5.7 K/mm3 (0.1-0.6); Monocytes Percent Auto 43.1 % (2.6-8.5); Neutrophils Absolute Auto 6.5 K/mm3 (1.3-6.7); Neutrophils Percent Auto 48.9 % (45.5-73.1); Nucleated Red Blood Cells Perc 1.1 % (0.0-0.2); Platelet Count Result 193 k/mm3 (150-375); Red Blood Count 2.82 M/mm3 (4.2-5.4); Red Cell Distribution Width 16.2 % (11.5-14.5); White Blood Count 13.2 K/mm3 (4.5-10.0)
[2024-02-20 12:07] LABS: Alanine Aminotransferase 10 U/L (6-35); Albumin Level 3.3 g/dL (3.5-5.1); Alkaline Phosphatase 82 U/L (38-126); Anion Gap 5 mmol/L (4-12); Aspartate Amino Transferase 23 U/L (14-36); Bilirubin,Total 1.6 mg/dL (0.2-1.3); Blood Urea Nitrogen 8 mg/dL (7-17); Calcium 8.5 mg/dL (8.4-10.2); Carbon Dioxide 26 mmol/L (22-30); Chloride 104 mmol/L (98-107); Estimated CRCL calculation 41 ml/min; Estimated Glomerular Filt Rate > 60; Glucose 127 mg/dL (65-110); Potassium 3.7 mmol/L (3.4-5.0); Sodium 135 mmol/L (137-145)
[2024-02-20 12:20] LABS: Anisocytosis 1+; Macrocytosis 1+ (NORMAL); Platelet Estimate Adequate (Adequate); Polychromasia 1+; Schistocytes Rare
[2024-02-20 12:21] LABS: Hypochromasia 1+; Microcytosis 1+ (NORMAL)
[2024-02-20] MEDS: MULTIVITAMINS THERAPEUTIC TAB (*BKC) 1 TABLET PO (12:45)
[2024-02-20] MEDS: FERROUS SULFATE 325 MG TABLET DR PO ×2 (12:45→17:12)
[2024-02-20] MEDS: OLMESARTAN MEDOXOMIL 20 MG TABLET 40 MG PO (12:45)
[2024-02-20] MEDS: METOPROLOL TARTRATE 25 MG TABLET PO ×2 (12:45→20:54)
[2024-02-20] MEDS: PANTOPRAZOLE SODIUM IV 40 MG VIAL IV PUSH (12:46)
--- NOTE | 2024-02-20 15:13 | WPDGIPROGNO ---
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 Status: Acute Assessment and Plan: eliquis on hold given severe anemia on presentation (4) CAD (coronary artery disease): Code(s): I25.10 - Atherosclerotic heart disease of [place] coronary artery without angina pectoris Status: Acute Subjective Date/time seen: 02/20/24 15:13 Interval history: colonoscopy unremarkable, she is comfortable Review of Systems Review of Systems: All systems reviewed & are unremarkable except as noted in HPI and below Exam Const: General: comfortable HENMT: Mouth: Yes moist mucous membranes Eyes: Sclera: sclerae normal Neck: Neck: supple Resp: Effort & Inspection: normal respiratory effort Auscultation: clear to auscultation bilaterally Cardio: Rate: regular rate Rhythm: regular rhythm GI: GI Palp: Yes Soft to palpation, No Tenderness to palpation present (GI) and No Guarding due to palpation present (GI) Auscultation: normal bowel sounds Skin: General skin exam: no rashes or lesions noted Neuro: Speech: normal speech Motor exam (neuro): 5/5 motor strength present throughout Other: alert and oriented Extrem: General: normal to inspection Psych: Mental Status: mental status grossly normal Objective Data Vital Signs Vital Signs: Vital Signs - 24 hr 02/19/24 15:19 02/19/24 15:29 02/19/24 15:34 Temperature Pulse Rate 66 65 67 Respiratory Rate 24 H 22 H 24 H Blood Pressure 118/42 L 113/93 H 142/59 H Pulse Oximetry 97 97 97 Oxygen Delivery Room Air Room Air Room Air 02/19/24 15:54 02/19/24 20:55 02/19/24 20:00 Temperature 97.3 F L 97.9 F Pulse Rate 73 79 Respiratory Rate 16 16 Blood Pressure 149/45 H 144/52 H Pulse Oximetry 100 96 Oxygen Delivery Room Air 02/20/24 04:15 02/20/24 08:00 02/20/24 09:30 Temperature 98.8 F Pulse Rate 78 66 Respiratory Rate 20 18 Blood Pressure 164/61 H 171/69 H Pulse Oximetry 95 100 Oxygen Delivery Room Air Room Air 02/20/24 09:45 02/20/24 10:00 02/20/24 10:15 Temperature Pulse Rate 68 68 64 Respiratory Rate 18 18 19 Blood Pressure 153/64 H 154/56 H 155/63 H Pulse Oximetry 93 100 99 Oxygen Delivery Room Air Room Air Room Air 02/20/24 10:30 02/20/24 12:45 02/20/24 13:53 Temperature 97.7 F Pulse Rate 65 74 74 Respiratory Rate 17 18 Blood Pressure 159/46 H 141/54 H Pulse Oximetry 99 96 Oxygen Delivery Room Air Intake/Output Intake/Output: Intake & Output 02/17/24 02/18/24 02/19/24 02/20/24 23:59 23:59 23:59 23:59 Intake Total 1320 730 390 390 Balance 1320 730 390 390 Meds/Results Medications: Active Medications Generic Name Dose Route Start Last Admin Trade Name Freq PRN Reason Stop Dose Admin Acetaminophen 650 mg 02/16/24 21:52 02/20/24 06:32 Acetaminophen 325 Mg Tablet PO 650 mg Q6H PRN Administration Mild Pain (1-3) or Fever Atorvastatin Calcium 40 mg 02/15/24 21:00 02/19/24 20:31 Atorvastatin 40 Mg Tablet PO 40 mg QHS ALYX Administration Ferrous Sulfate 325 mg 02/19/24 10:10 02/20/24 12:45 Ferrous Sulfate [address] PO 325 mg BID ALYX Administration Metoprolol Tartrate 25 mg 02/15/24 09:00 02/20/24 12:45 Metoprolol Tartrate 25 Mg Tablet PO 25 mg Q12HR ALYX Administration Multivitamins Therapeutic 1 tablet 09
--- NOTE | 2024-02-20 15:38 | P.PNIM_ITS ---
Progress Note: A&P Assessment and Plan (1) GI bleed: Code(s): K92.2 - Gastrointestinal hemorrhage, unspecified Status: Acute Assessment and Plan: 02/20/24: * Hgb stable at 8.1 * continue ferrous sulfate BID * Colonoscopy from 02/19/24 shown diverticulosis without perforation or abscess without bleeding, polyp and internal hemorrhoids without active bleeding. 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 Status: Acute Assessment and Plan: 02/20/24 * Holding ASA and Eliquis * Awaiting clearance from GI to resume (3) CAD (coronary artery disease): Code(s): I25.10 - Atherosclerotic heart disease of [place] coronary artery without angina pectoris Status: Acute Assessment and Plan: 02/20/24: * History of 3-vessel CABG * Continue sartan, statin, holding ASA and Eliquis (4) Acute on chronic anemia: Code(s): D64.9 - Anemia, unspecified Status: Acute Assessment and Plan: 02/20/24: * Patient received 5 units PRBC for initial Hgb of 4.5 * GI following * Colonoscopy shown diverticulosis without perforation or abscess without bleeding, colonic polyps, internal hemorrhoids. * Continue ferrous sulfate BID * Transfuse if Hgb <7.0 * Hematology/Oncology following * Bone marrow biopsy today (5) Vitamin B12 deficiency: Code(s): E53.8 - Deficiency of other specified B group vitamins Status: Acute Assessment and Plan: 02/20/24: * Resumed home medication (6) Essential (primary) hypertension: Code(s): I10 - Essential (primary) hypertension Status: Acute Assessment and Plan: 02/20/24 * Continue olmesartan and hydralazine Time Spent With Patient Time with patient: Greater than 35 minutes Subjective Date/time seen: 02/20/24 15:38 Interval history: Patient denies any new complaints today. She went for Bone marrow biopsy today. Labs today revealed a WBC of 13.2, RBC 2.82, Hgb 8.1, na+ 135, Total bili 1.6. Review of Systems Review of Systems: All review of systems are negative except as noted in the history and physical examination. All systems reviewed & are unremarkable except as noted in HPI and below Constitutional: Constitutional: Reports as per HPI and Reports no additional constitutional complaints Eyes: Eyes: Reports as per HPI and Reports no additional eye complaints ENT: Reports system reviewed and no additional complaints, except as documented and Reports as per HPI Cardiovascular: Cardiovascular: Reports as per HPI and Reports no additional cardiovascular complaints Respiratory: Respiratory: Reports as per HPI and Reports no additional respira tory complaints Gastrointestinal: Gastrointestinal: Reports as per HPI and Reports no additional gastrointestinal complaints Genitourinary: Genitourinary: Reports no additional female genitourinary complaints and Reports as per HPI Musculoskeletal: Musculoskeletal: Reports no additional musculoskeletal complaints and Reports as per HPI Integumentary/Breasts: Skin/Breast: Reports system reviewed and no additional complaints, except as docu and Reports as per HPI Neurologic: Reports system reviewed and no additional complaints, except as documented and Reports as per HPI Psychiatric: Psychiatric: Reports no additional psychiatric complaints and Reports as per HPI Exam
--- NOTE | 2024-02-20 15:38 | PM.IMPN ---
Progress Note: A&P Assessment and Plan (1) GI bleed: Code(s): K92.2 - Gastrointestinal hemorrhage, unspecified Status: Acute Assessment and Plan: 02/20/24: Hgb stable at 8.1 continue ferrous sulfate BID Colonoscopy from 02/19/24 shown diverticulosis without perforation or abscess without bleeding, polyp and internal hemorrhoids without active bleeding. 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 Status: Acute Assessment and Plan: 02/20/24 Holding ASA and Eliquis Awaiting clearance from GI to resume (3) CAD (coronary artery disease): Code(s): I25.10 - Atherosclerotic heart disease of [place] coronary artery without angina pectoris Status: Acute Assessment and Plan: 02/20/24: History of 3-vessel CABG Continue sartan, statin, holding ASA and Eliquis (4) Acute on chronic anemia: Code(s): D64.9 - Anemia, unspecified Status: Acute Assessment and Plan: 02/20/24: Patient received 5 units PRBC for initial Hgb of 4.5 GI following Colonoscopy shown diverticulosis without perforation or abscess without bleeding, colonic polyps, internal hemorrhoids. Continue ferrous sulfate BID Transfuse if Hgb <7.0 Hematology/Oncology following Bone marrow biopsy today (5) Vitamin B12 deficiency: Code(s): E53.8 - Deficiency of other specified B group vitamins Status: Acute Assessment and Plan: 02/20/24: Resumed home medication (6) Essential (primary) hypertension: Code(s): I10 - Essential (primary) hypertension Status: Acute Assessment and Plan: 02/20/24 Continue olmesartan and hydralazine Time Spent With Patient Time with patient: Greater than 35 minutes Subjective Date/time seen: 02/20/24 15:38 Interval history: Patient denies any new complaints today. She went for Bone marrow biopsy today. Labs today revealed a WBC of 13.2, RBC 2.82, Hgb 8.1, na+ 135, Total bili 1.6. Review of Systems Review of Systems: All review of systems are negative except as noted in the history and physical examination. All systems reviewed & are unremarkable except as noted in HPI and below Constitutional: Constitutional: Reports as per HPI and Reports no additional constitutional complaints Eyes: Eyes: Reports as per HPI and Reports no additional eye complaints ENT: Reports system reviewed and no additional complaints, except as documented and Reports as per HPI Cardiovascular: Cardiovascular: Reports as per HPI and Reports no additional cardiovascular complaints Respiratory: Respiratory: Reports as per HPI and Reports no additional respiratory complaints Gastrointestinal: Gastrointestinal: Reports as per HPI and Reports no additional gastrointestinal complaints Genitourinary: Genitourinary: Reports no additional female genitourinary complaints and Reports as per HPI Musculoskeletal: Musculoskeletal: Reports no additional musculoskeletal complaints and Reports as per HPI Integumentary/Breasts: Skin/Breast: Reports system reviewed and no additional complaints, except as docu and Reports as per HPI Neurologic: Reports system reviewed and no additional complaints, except as documented and Reports as per HPI Psychiatric: Psychiatric: Reports no additional psychiatric complaints and Reports as per HPI Exam Narrative: General: In no acute distress, well nourished Head: atraumatic, no encephalopathy Eyes: EOMI, PERRLA, sclera clear ENT: moist mucous membranes, nasal passages clear Neck: supple, no JVD, no adenopathy, trachea midline Cardiac: Normal S1 and S2. No murmur, gallops or friction rubs, peripheral pulses intact. Respiratory: Lungs clear to auscultation, no adventitious lung sounds, currently on room air Gastrointestinal: soft, non-distended, non-tender, normoactive bowel sounds. : voiding without difficulty. Extremities: moves all extr
[2024-02-20] MEDS: ATORVASTATIN 40 MG TABLET PO (20:54)
[2024-02-21 00:10] VITALS: BP 149/48; PULSE 66; RESP 20; TEMP 36.3; O2SAT 97
[2024-02-21 05:15] VITALS: BP 146/46; PULSE 74; RESP 16; TEMP 36.1; O2SAT 97
[2024-02-21 08:07] VITALS: PULSE 75
[2024-02-21] MEDS: MULTIVITAMINS THERAPEUTIC TAB (*BKC) 1 TABLET PO (08:07)
[2024-02-21] MEDS: METOPROLOL TARTRATE 25 MG TABLET PO (08:07)
[2024-02-21] MEDS: OLMESARTAN MEDOXOMIL 20 MG TABLET 40 MG PO (08:09)
[2024-02-21] MEDS: FERROUS SULFATE 325 MG TABLET DR PO (08:09)
--- NOTE | 2024-02-21 09:03 | PM.DS ---
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 Status: Acute (3) CAD (coronary artery disease): Code(s): I25.10 - Atherosclerotic heart disease of tangirnaq coronary artery without angina pectoris Status: Acute (4) Acute on chronic anemia: Code(s): D64.9 - Anemia, unspecified Status: Acute (5) Vitamin B12 deficiency: Code(s): E53.8 - Deficiency of other specified B group vitamins Status: Acute (6) Essential (primary) hypertension: Code(s): I10 - Essential (primary) hypertension Status: Acute DS: Summary Hospital Course Reason for hospitalization: CABG GERD Essential hypertension Elevated troponin 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 Patient stated that she started having chest pain 2 hours prior to her arrival. Arrival she was extremely pale and reported that she was having black tarry stools for the last 1-2 weeks. Workup in the hospital included a chest x-ray which showed minimal pleural effusion with possible minimal bibasilar pulmonary edema. Upper GI and small bowel x-ray show normal small bowel series. Initial labs showed a white blood cell count of 10.9, RBC 1.49, hemoglobin 4.5, hematocrit 15.1, INR 1.9, iron 17, troponin 0.061> 0.076, lipase 137. Patient normally takes Eliquis for A-Fib however this was placed on hold due to her profound anemia Cardiology was consulted for the elevated troponins however this was likely demand ischemia from her profound anemia. Patient received 3 units of packed red blood cells while in the ED and was started on a Protonix drip. GI was also consulted and took patient for colonoscopy on 02/19/2024 which showed a few diverticulosis in the sigmoid colon, no active bleeding, two 4 mm to 5 mm polyps observed in the cecum and were excised, a few small sized internal hemorrhoids were also seen in the rectum, no active bleeding. hematology and Oncology were also consulted due to her profound anemia. Patient has history of stage I B lung cancer status post right upper lobectomy done in August of 2020. She was taken to a procedural area and had a bone marrow biopsy done on 02/20/2024. Her hemoglobin has remained stable and is currently 8.1. Eliquis will be restarted with a follow-up lab in 1 week. She will need to be monitored closely for further anemia. Labs reviewed and are stable. She does have a phlebitis from an IV site that went bad on her right upper arm. A prescription for Clindamycin was called to her pharmacy. She is stable for discharge at this time. She will need to follow up with Hematology/Oncology in 2 weeks for results of her bone marrow biopsy and further workup of her profound anemia. She will also need to follow up with Cardiology in a couple weeks. she will need call the GI office for results of her pathology that was sent during her colonoscopy. She will continue to take ferrous sulfate. Final diagnosis: GI bleed, anemia Status at Discharge Cognitive/behavioral status at discharge: Alert and oriented x4 Functional status at discharge: independent ambulation Overall status at discharge: patient is progressing back to baseline Time Spent with Patient Time attestation: Total time spent providing and/or coordinating discharge services: Time spent: Greater than 30 minutes Exam Narrative:
[2024-02-22 12:14] LABS: Haptoglobin 93 mg/dL (43-212)
== END 2024-02-21 13:30 | disposition home or self-care (01) | DRG 378 ==
LOC: ANHED 04:29 → ANHIMU 06:21 → ANH3MEDSUR 02-16 12:26
PROVIDERS: Hospitalist; Internal Medicine; Internal Medicine Gastroenterology; Internal Medicine Hematology & Oncology; Nurse Practitioner Family; Radiology Diagnostic Radiology; Admitting Provider Internal Medicine; Emergency Provider Emergency Medicine; PCP Family Medicine; Visit Provider Nurse Practitioner Acute Care
PROC: 0DJ08ZZ Inspection of Upper Intestinal Tract, Via Natural or Artificial Opening Endoscopic (ICD-10-PCS; CPT 43235; principal; 2024-02-16 08:00)
PROC: 0DJD8ZZ Inspection of Lower Intestinal Tract, Via Natural or Artificial Opening Endoscopic (ICD-10-PCS; CPT 45378; principal; 2024-02-19 14:30)
PROC: 07DR3ZX Extraction of Iliac Bone Marrow, Percutaneous Approach, Diagnostic (ICD-10-PCS; principal; 2024-02-20 09:00)
DX: K92.2 Gastrointestinal hemorrhage, unspecified (principal); D62 Acute posthemorrhagic anemia; I24.89 Other forms of acute ischemic heart disease; I25.110 Atherosclerotic heart disease of native coronary artery with unstable angina pectoris; T80.1XXA Vascular complications following infusion, transfusion and therapeutic injection, initial encounter; I80.8 Phlebitis and thrombophlebitis of other sites; K64.8 Other hemorrhoids; K57.30 Diverticulosis of large intestine without perforation or abscess without bleeding; D12.0 Benign neoplasm of cecum; I48.0 Paroxysmal atrial fibrillation; K21.9 Gastro-esophageal reflux disease without esophagitis; I10 Essential (primary) hypertension; E87.6 Hypokalemia; I65.29 Occlusion and stenosis of unspecified carotid artery; E53.8 Deficiency of other specified B group vitamins; Z95.1 Presence of aortocoronary bypass graft; Z79.01 Long term (current) use of anticoagulants; Z79.82 Long term (current) use of aspirin; Z90.710 Acquired absence of both cervix and uterus; Z87.891 Personal history of nicotine dependence; Z85.118 Personal history of other malignant neoplasm of bronchus and lung; Z90.81 Acquired absence of spleen
CPT/HCPCS: 36415; 36430; 38222; 71045; 74250; 80048; 80053; 82274; 83010; 83540; 83550; 83615; 83690; 84484; 85025; 85046; 85055; 85610; 85730; 86334; 86850; 86860; 86870; 86880; 86900; 86901; 86902; 86922; 86971; 86978; 88305; 88311; 88313; 93005; 93306; 99285; A9270; J1642; J1756; J1940; J2470; J2704; J3010; J3480; J7040; J7050; J7120; P9016

== ENCOUNTER 2024-02-28 09:05 | Outpatient (CLI) | payer MEDICARE, SELFPAY ==
[2024-02-28 11:07] LABS: Basophils Absolute Auto 0.1 K/mm3 (0.0-0.1); Basophils Percent Auto 0.7 % (0.2-1.2); Eosinophils Absolute Auto 0.1 K/mm3 (0-0.3); Eosinophils Percent Auto 1.1 % (0-4.4); Hematocrit 26.1 % (37.0-47.0); Hemoglobin 7.9 g/dL (12.0-15.0); Immature Granulocyte Absolute 0.14 K/mm3 (0.00-0.031); Immature Granulocyte Percent A 1.3 % (0-0.5); Lymphocytes Absolute Auto 0.84 K/mm3 (0.9-3.2); Lymphocytes Percent Auto 7.9 % (18.3-44.2); Mean Corpuscular HGB Conc 30.3 g/dl (32-36); Mean Corpuscular Hemoglobin 29.9 pg (26-34); Mean Corpuscular Volume 98.9 fl (80-100); Mean Platelet Volume 11.1 fl (7.4-10.4); Monocytes Absolute Auto 3.9 K/mm3 (0.1-0.6); Monocytes Percent Auto 37.1 % (2.6-8.5); Neutrophils Absolute Auto 5.5 K/mm3 (1.3-6.7); Neutrophils Percent Auto 51.9 % (45.5-73.1); Nucleated Red Blood Cells Perc 0.9 % (0.0-0.2); Platelet Count Result 353 k/mm3 (150-375); Red Blood Count 2.64 M/mm3 (4.2-5.4); Red Cell Distribution Width 17.7 % (11.5-14.5); White Blood Count 10.6 K/mm3 (4.5-10.0)
== END 2024-02-28 09:06 | disposition home or self-care (01) ==
LOC: ANHLAB 09:07
PROVIDERS: PCP Family Medicine; Visit Provider Family Medicine
DX: D64.9 Anemia, unspecified (principal)
CPT/HCPCS: 36415; 85025

== ENCOUNTER 2024-03-07 12:26 | Outpatient (CLI) | payer MEDICARE, SELFPAY ==
[2024-03-07 12:39] LABS: Hematocrit 29.6 % (37.0-47.0); Hemoglobin 9.1 g/dL (12.0-15.0); Mean Corpuscular HGB Conc 30.7 g/dl (32-36); Mean Corpuscular Hemoglobin 30.4 pg (26-34); Mean Platelet Volume 9.7 fl (7.4-10.4); Platelet Count Result 404 k/mm3 (150-375); Red Blood Count 2.99 M/mm3 (4.2-5.4); Red Cell Distribution Width 17.9 % (11.5-14.5)
[2024-03-07 12:44] LABS: Eosinophils Percent Manual 1 % (0-4); Metamyelocytes Percent 1 %; Monocytes Percent Manual 24 % (3-9); Neutrophils Percent Manual 56 % (46-73); Total Cells Counted 100
[2024-03-07 12:45] LABS: Platelet Estimate Increased (Adequate); Schistocytes None Seen
[2024-03-07 12:46] LABS: Anisocytosis 2+; Microcytosis 2+ (NORMAL)
[2024-03-07 13:22] LABS: Iron 128 ug/dL (37-170)
[2024-03-07 13:26] LABS: Anion Gap 11 mmol/L (4-12); Blood Urea Nitrogen 24 mg/dL (7-17); Calcium 9.5 mg/dL (8.4-10.2); Carbon Dioxide 30 mmol/L (22-30); Chloride 97 mmol/L (98-107); Estimated Glomerular Filt Rate 53; Glucose 143 mg/dL (65-110); Potassium 3.4 mmol/L (3.4-5.0); Sodium 138 mmol/L (137-145)
[2024-03-07 13:34] LABS: Percent Iron Saturation 33 % (20-50)
[2024-03-07 14:30] LABS: Vitamin B12 > 1000.0 pg/mL (239-931)
== END 2024-03-07 12:27 | disposition home or self-care (01) ==
LOC: ANHLAB 12:28
PROVIDERS: PCP Family Medicine; Visit Provider Internal Medicine Hematology & Oncology
DX: D64.9 Anemia, unspecified (principal)
CPT/HCPCS: 36415; 80048; 82607; 82728; 82746; 83540; 83550; 85025

== ENCOUNTER 2024-03-10 10:54 | Outpatient (CLI) | payer MEDICARE, SELFPAY ==
[2024-03-10 11:33] LABS: Kit Draw Collected
== END 2024-03-10 10:55 | disposition home or self-care (01) ==
LOC: ANHLAB 10:56
PROVIDERS: PCP Family Medicine; Visit Provider Internal Medicine Hematology & Oncology
DX: D64.9 Anemia, unspecified (principal)
CPT/HCPCS: 36415

== ENCOUNTER 2024-04-07 06:06 | Outpatient (CLI) | payer MEDICARE, SELFPAY ==
[2024-04-07] MEDS: SIMETHICONE ORAL SUSPENSION 20 MG/0.3 ML 30 ML BOTTLE 0.6 ML IRRIGATION (06:43)
--- NOTE | 2024-04-07 06:44 | SUR.OPER ---
Patient brought to GI Lab. Instructions for patient undergoing Capsule Endoscopy reviewed with patient. Consent form signed. Sensor array applied to patient's abdomen and connected to recorded. Patient swallowed capsule with ozs of water infused with Simethicone. Patient instructed they may have clear liquids at 0830 this AM and eat or drink at 1030 this AM. Patient instructed to return to GI Lab at 1500 this afternoon for removal of recording device and to call [phone] or to return to the hospital if any nausea and vomiting or abdominal pain is experienced.
--- NOTE | 2024-04-07 06:46 | SUR.OPER ---
Capsule ID# [id number] EXP 09-18-2024
--- NOTE | 2024-04-07 15:08 | SUR.PHASEII ---
Patient returned to the GI Lab at 1500 for recorder box removal. Patient voiced no complaints. States they have understanding of instructions. Patient left ambulatory.
== END 2024-04-07 08:52 | disposition home or self-care (01) ==
PROVIDERS: PCP Family Medicine; Referring Provider Nurse Practitioner Family; Visit Provider Internal Medicine Gastroenterology
PROC: 0DJ07ZZ Inspection of Upper Intestinal Tract, Via Natural or Artificial Opening (ICD-10-PCS; CPT 91110; principal; 2024-04-07 07:00)
DX: D50.9 Iron deficiency anemia, unspecified (principal); K92.1 Melena
CPT/HCPCS: 36415; 80048; 82607; 82728; 83540; 83550; 85025; 91110

== ENCOUNTER 2024-04-07 15:13 | Outpatient (CLI) | payer MEDICARE, SELFPAY ==
[2024-04-07 15:26] LABS: Hematocrit 26.7 % (37.0-47.0); Hemoglobin 8.8 g/dL (12.0-15.0); Mean Corpuscular Hemoglobin 33.2 pg (26-34); Mean Corpuscular Volume 100.8 fl (80-100); Mean Platelet Volume 9.5 fl (7.4-10.4); Platelet Count Result 244 k/mm3 (150-375); Red Blood Count 2.65 M/mm3 (4.2-5.4)
[2024-04-07 15:33] LABS: Band Neutrophils Percent 3 % (0-6); Eosinophils Absolute Manual 0.09 K/mm3 (0.02-0.50); Eosinophils Percent Manual 1 % (0-4); Lymphocytes Absolute Manual 0.99 K/mm3 (1.1-4.5); Metamyelocytes Percent 1 %; Monocytes Absolute Manual 2.88 K/mm3 (0.1-0.90); Monocytes Percent Manual 32 % (3-9); Neutrophils Absolute Manual 4.95 K/mm3 (1.7-7.2); Neutrophils Percent Manual 52 % (46-73); Total Cells Counted 100
[2024-04-07 15:34] LABS: Anisocytosis 1+; Atypical Lymphocytes Present; Microcytosis 1+ (NORMAL); Platelet Estimate Adequate (Adequate); Schistocytes None Seen
[2024-04-07 16:29] LABS: Iron 71 ug/dL (37-170)
[2024-04-07 16:47] LABS: Percent Iron Saturation 20 % (20-50)
[2024-04-07 16:50] LABS: Anion Gap 8 mmol/L (4-12); Blood Urea Nitrogen 20 mg/dL (7-17); Calcium 9.7 mg/dL (8.4-10.2); Carbon Dioxide 29 mmol/L (22-30); Chloride 99 mmol/L (98-107); Estimated Glomerular Filt Rate 53; Glucose 111 mg/dL (65-110); Potassium 3.8 mmol/L (3.4-5.0); Sodium 136 mmol/L (137-145)
[2024-04-07 17:39] LABS: Vitamin B12 > 1000.0 pg/mL (239-931)
== END 2024-04-07 15:14 | disposition home or self-care (01) ==
PROVIDERS: PCP Family Medicine; Visit Provider Internal Medicine Hematology & Oncology
DX: D64.9 Anemia, unspecified (principal)
CPT/HCPCS: 36415; 80048; 82607; 82728; 83540; 83550; 85025

== ENCOUNTER 2024-05-06 08:13 | Outpatient (CLI) | payer MEDICARE, SELFPAY ==
--- NOTE | ~2024-05-06 | CT_ITS ---
Clinical Indication: Lung cancer CT Scan of the Chest with Contrast: Technique: Contiguous sections were acquired throughout the chest after intravenous administration of 75 cc of Omnipaque 350. Dose reduction technique was used on this scan by utilizing automated exposu re control and iterative reconstruction technique. The dose-length product (DLP) was 140.51 mGy-cm. COMPARISON: 11/27/2023 Findings: There is no evidence of any significant mediastinal, hilar or axillary lymphadenopathy. There is no f illing defect in the pulmonary arterial tree to suggest pulmonary embolus. There is no evidence of ao rtic dissection or aneurysm. There are extensive atherosclerotic calcifications of the aorta. There is no evidence of pleural or pericardial effusion. There is mild biapical scarring. Status post right upper lobectomy. Images through the upper abdomen reveal no abnormalities. Impression: Status post right upper lobectomy. No evidence for active malignancy or metastatic disease. Reviewed, dictated and finalized at [facility]. 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 No evidence for active malignancy or metasta tic disease.
== END 2024-05-06 08:14 | disposition home or self-care (01) ==
PROVIDERS: Visit Provider Internal Medicine Hematology & Oncology
DX: C34.11 Malignant neoplasm of upper lobe, right bronchus or lung (principal); Z90.2 Acquired absence of lung [part of]
CPT/HCPCS: 71260; Q9967

== ENCOUNTER 2024-06-24 08:52 | Outpatient (CLI) | payer MEDICARE, SELFPAY ==
[2024-06-24 13:18] LABS: Cholesterol 84 mg/dL (0-200); HDL Direct 32 mg/dL; Triglycerides 85 mg/dL (<150)
[2024-06-24 13:32] LABS: LDL Cholesterol Direct < 30 mg/dL
[2024-06-24 13:36] LABS: Vitamin D 25 Hydroxy 61.1 ng/mL
--- OUTSIDE RECORDS SUMMARY | 2024-07-01 00:25 | XMS_ITS | Clinical Summary ---
Author Organization [facility] Address [address] [place] [address] Care Team Providers Care Nitric Acid Plant Operator Name Role Phone Billie Blackwood MD Primary Care Provider [phone] Source Comments [facility] Reviewed,non-owned Affiliates and Associated Physician Practices is amultiple site organization consisting of ambulatory clinics and hospital sitesin [place], [place], [place] and [place]. This disclosure is being madepursuant to the Care Everywhere program and may not contain all information available regarding this patient. Last updated 18.[facility] Reviewed Allergies No known active allergies Medications Be aware that medications may not be up to date on this document. Always verify current medications with the patient. No known medications Immunizations Name Administration Dates Next Due INFLUENZA VACCINE, HIGH-DOSE , QUADR. (FLUZONE HIGH-DOSE QUADRIVALENT; 65Y+), 0.7 ML (HD-IIV4) 04/26/2017 Social History Tobacco Use Types Packs/Day Years Used Date Smoking Tobacco: Never Assessed Sex and Gender Information Value Date Recorded Sex Assigned at Not on file Gender Identity Not on file Sexual Orientation Not on file Plan of Treatment Health Maintenance Due Date Last Done Comments BONE DENSITY TESTING 1944 DTAP/TDAP/TD VACCINES (1 - Tdap) 1963 PNEUMOCOCCAL VACCINE 50+ (1 of 1 - PCV) 1994 ZOSTER VACCINE (1 of 2) 1994 Respiratory Syncytial Virus (RSV) Vaccine Pt: or over 60 yrs (1 - 1-dose 75+ series) 2019 COVID-19 VACCINE (2023-2 5 season) 2024 INFLUENZA VACCINE (#1) 2024 04/26/2017 DEPRESSION SCREENING 06/18/2024 MEDICARE AWV ? CALENDAR YEAR 2024 HEPATITIS B VACCINE Aged Out No longe r eligible based on patient's age to complete this topic HIB VACCINE Aged Out No longer eligi ble based on patient's age to complete this topic HPV VACCINE Aged Out No longer eligi ble based on patient's age to complete this topic MENINGOCOCCAL (Group B) VACCINE Aged Out No longer eligible based on patient's age to complete this topic MENINGOCOCCAL VACCINE Aged Out No marianela antonia eligible based on patient's age to complete this topic Care Teams Nitric Acid Plant Operator Relationship Specialty Start Date End Date Billie Blackwood MD [address] [place] [phone] PCP - General 07/20/20
--- OUTSIDE RECORDS SUMMARY | 2024-07-01 00:25 | XMS_ITS | Encounter Summary ---
Author Organization [facility] Address [facility] [facility] [place] [address] [place] [address] Care Team Providers Care Automatic Coil Machine Operator Name Role Phone Aliza Bain MD Primary Care Provider Nahid Hickman MD Unavailable [phone] Kiel Vasquez MD Unavailable [phone] Encounter Details Date Type Department Care Team (Latest Contact Info) Description 09/27/2022 Travel Social History Tobacco Use Types Packs/Day Years Used Date Smoking Tobacco: Former Cigarettes 0.5 40 1 962 - 2002 Smokeless Tobacco: Never Alcohol Use Standard Drinks/Week Comments Yes 0 (1 standard drink = 0.6 oz pure alcohol) occasional use- mixed drinks or wine PHQ-2 Answer Date Recorded Patient Health Questionnaire-2 Score 0 08/29/2022 Comments No Sex and Gender Information Value Date Recorded Sex Assigned at Not on file Legal Sex Female 6:29 PM CDT Gender Identity Not on file Sexual Orientation Not on file COVID-19 Exposure Response Date Recorded In the last 10 days, have rosas u been in contact with someone who was confirmed or suspected to have Coronavirus/COVID-19? No / Unsure 09/27/2022 3:03 PM CDT documented as of this encounter Functional Status * RETIRED Are you deaf or do you have serious difficulty hearing Answer Date of Assessment Author Status No 10/03/2021 4:00 PM CDT Activ e * RETIRED Are you blind or do you have serious difficulty seeing, even when wearing glasses? Answer Date of Assessment Author Status No 10/03/2021 4:00 PM CDT Activ e * Do you have serious difficulty walking or climbing stairs? Answer Date of Assessment Author Status No 10/03/2021 4:00 PM CDT Rupa Rodriguez RN Active * Do you have difficulty dressing or bathing? Answer Date of Assessment Author Status No 10/03/2021 4:00 PM CDT Rupa Rodriguez RN Active * Because of a physical, mental, or emotional condition, do you have difficulty doing errands alone such as visiting a doctor's office or shopping? Answer Date of Assessment Author Status No 10/03/2021 4:00 PM CDT Rupa Rodriguez RN Active documented as of this encounter Mental Status * Because of a physical, mental, or emotional condition, do you have serious difficulty concentrating, remembering, or making decisions? Answer Entry Date Author Status No 10/03/2021 4:00 PM TAMYT Rupa Rodriguez RN Active documented in this encounter Plan of Treatment Upcoming Encounters Date Type Department Care Team (Late st Contact Info) Description 07/22/2024 11:40 AM HOSPICE CARE TRANSITIONS COORDINATOR Office Visit [facility] Multispecialty Care - [facility] [address], [address] [place] [address] Kris Amado MD [address] [place] [address] 10/16/2024 11:00 AM CDT Appointment [facility] [place] [address] [place] [address] Jimmy Morris MD [address] [facility]. [address] [place] [address] documented as of this encounter Goals Goal Patient Goal Type Associated Problems Recent Progress Patient-Stated? Author Safety ? Patient/family will have appropriate support at home upon discharge General No Zoila Gan RN documented as of this encounter Visit Diagnoses Not on filedocumented in this encounter Care Teams Automatic Coil Machine Operator Relationship Specialty Start Date End Date Aliza Bain MD [address] [phone] PCP - General FAMILY PRACTICE 05/09/21 Nahid Hickman MD [address] [facility] [address] [place] [address] PCP - ONCOLOGY HEMATOLOGY/ONCOLOGY 10/03/21 Kiel Vasquez MD [address] [facility] [address] [place] [address] Consulting Physician CARDIOLOGY 10/03/21 documented as of this encounter
--- OUTSIDE RECORDS SUMMARY | 2024-07-01 00:25 | XMS_ITS | Encounter Summary ---
Author Organization [facility] Address [facility] [place] [address] [place] [address] Care Team Providers Care Photographic Laboratory Supervisor Name Role Phone Aliza Bain MD Primary Care Provider Nahid Hickman MD Unavailable [phone] Kiel Vasquez MD Unavailable [phone] Encounter Details Date Type Department Care Team (Latest Contact Info) Description 11/09/2022 Travel Social History Tobacco Use Types Packs/Day [...] suspected to have Coronavirus/COVID-19? 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. [address] [place] [address] documented as of this encounter Goals Goal Patient Goal Type Associated Problems Recent Progress Patient-Stated? Author Safety ? Patient/family will have appropriate support at home upon discharge General No Zoila Gan RN documented as of this encounter Visit Diagnoses Not on filedocumented in this encounter Care Teams Photographic Laboratory Supervisor Relationship Specialty Start Date End Date Aliza Bain MD [address] [phone] PCP - General FAMILY PRACTICE 05/09/21 Nahid Hickman MD [address] [facility] [address] [place] [phone] PCP - ONCOLOGY HEMATOLOGY/ONCOLOGY 10/03/21 Kiel Vasquez MD [address] [facility] [address] [place] [address] Consulting Physician CARDIOLOGY 10/03/21 documented as of this encounter
--- OUTSIDE RECORDS SUMMARY | 2024-07-01 00:25 | XMS_ITS | Encounter Summary ---
Author Organization [facility] Address Critical access hospital[address] [place] [address] [place] [address] Care Team Providers Care Data Miner Name Role Phone Aliza Bain MD Primary Care Provider Nahid Hickman MD Unavailable [phone] Kiel Vasquez MD Unavailable [phone] Reason for Visit * Reason Onset Date Comments Results 10/23/2023 Encounter Details Date Type Department Care Team (Late st Contact Info) Description 10/23/2023 [facility]phone [facility] [address] [place] [address] Jimmy Morris MD [facility]. [facility] [address] [place] [address] Results Social History Tobacco Use Types Packs/Day Years Used Date Smoking Tobacco: Former Cigarettes 0.5 40 1 962 - 2002 Passive Smoke Exposure: Never Smokeless Tobacco: Never Alcohol Use Standard Drinks/Week Comments Yes 0 (1 standard drink = 0.6 oz pure alcohol) occasional use- mixed drinks or wine PHQ-2 Answer Date Recorded Patient Health Questionnaire-2 Score 0 01/04/2023 Comments No Sex and Gender Information Value Date Recorded Sex Assigned at Not on file Legal Sex Female 6:29 PM CDT Gender Identity Not on file Sexual Orientation Not on file documented as of this encounter Functional Status [...] Date Author Status No 10/03/2021 4:00 PM CDT Rupa Rodriguez RN Active documented in this encounter Progress Notes * Hiral Deutsch MA - 10/23/2023 12:56 PM CDT I called Cassandra to give her the carotid duplex results. I was unable to reach her and I left a message on her v/m asking her to call the office for her results. documented in this encounter Plan of Treatment Upcoming Encounters Date Type Department Care Team (Late st Contact Info) Description 07/22/2024 11:40 AM CERTIFIED REAL ESTATE APPRAISER Office Visit [facility] Medical [facility] Multispecialty Care - [facility] [address] [facility], [address] [place] [address] Kris Amado MD [address] [place] [address] 10/16/2024 11:00 AM CDT Appointment [facility] [place] [address] Jimmy Morris MD [address] [facility]. [address] [place] [address] documented as of this encounter Goals Goal Patient Goal Type Associated Problems Recent Progress Patient-Stated? Author Safety ? Patient/family will have appropriate support at home upon discharge General No Zoila Gan, RN documented as of this encounter Visit Diagnoses Not on filedocumented in this encounter Care Teams Data Miner Relationship Specialty Start Date End Date Aliza Bain MD [address] [place] [address] PCP - General FAMILY PRACTICE 05/09/21 Nahid Hickman MD [address] [facility] [address] [place] [address] PCP - ONCOLOGY HEMATOLOGY/ONCOLOGY 10/03/21 Kiel Vasquez MD [address] [facility] [address] [place] [address] Consulting Physician CARDIOLOGY 10/03/21 documented as of this encounter
--- OUTSIDE RECORDS SUMMARY | 2024-07-01 00:25 | XMS_ITS | Encounter Summary ---
Author Organization [facility] Address [facility]. [place], [place] [address] [place] [id number] Care Team Providers Care Gis Developer Name Role Phone Aliza Bain MD Primary Care Provider Nahid Hickman MD Unavailable [phone] Kiel Vasquez MD Unavailable Reason for Referral * Procedure (Routine) - Closed Specialty Diagnoses / Procedures Referred By Contac t Referred To Contact Diagnoses Muscle weakness of all 4 extremities Procedures EMG Rhonda Modi NP Govindarajan, Raghav, MD [address] [place] [address] Phone: tel: fax: Referral ID Status Reason Start Date Expiration Date V isits Requested Visits Authorized [id number] Closed Office Procedure 08/06/2023 08/06/2024 1 1 SE TESTER Reason for Visit * Reason Comments Follow Up 6 mo * Consultation/Treatment (Routine) - Closed Specialty Diagnoses / Procedures Referred By Contact Referred To Contact NEUROMUSCULOSKELETAL MEDICIN E / NEUROLOGY Diagnoses follow up Aliza Bain MD [address] [place] [address] [address] [place] [address] Phone: tel: fax: Kris Amado MD [address] [place] [address] Phone: tel:[phone] fax:[phone] Referral ID Status Reason Start Date Expiration Date V isits Requested Visits Authorized [id number] Closed Specialty Services 08/29/2022 09/30/2023 100 100 Encounter Details Date Type Department Care Team (Late st Contact Info) Description 08/06/2023 10:20 AM CHEESE TESTER Office Visit [facility] Multispecial[facility] - [facility] [address] [facility], [address] [place] [address] Rhonda Modi NP Follow Up (6 mo ) Social History Tobacco Use Types Packs/Day Years [...] on file documented as of this encounter Last Filed Vital Signs Vital Sign Reading Time Taken Comments Blood Pressure 149/54 08/06/2023 10:38 AM CHEESE TESTER Pulse 61 08/06/2023 10:38 AM CHEESE TESTER Temperature 36.6 ??C (97.9 ??F) 08/06/2023 10:[address] Respiratory Rate - - Oxygen Saturation 100% 08/06/2023 10:38 AM CHEESE TESTER Inhaled Oxygen Concentration - - Weight 64 kg (141 lb) 08/06/2023 10:38 AM CHEESE TESTER Height 160 cm (5' 3 ) 08/06/2023 10:38 AM CHEESE TESTER Body Mass Index 24.98 08/06/2023 10:38 AM CHEESE TESTER documented in this encounter Functional Status * RETIRED Are [...] Assessment Author Status No 10/03/2021 4:00 PM Rupa Borrero RN Active * Do you have difficulty dressing or bathing? Answer Date of Assessment Author Status No 10/03/2021 4:00 PM Rupa Borrero RN Active * Because of a physical, mental, or emotional condition, do you have difficulty doing errands alone such as visiting a doctor's office or shopping? Answer Date of Assessment Author Status No 10/03/2021 4:00 PM Rupa Borrero RN Active documented as of this encounter Mental Status * Because of a physical, mental, or emotional condition, do you have serious difficulty concentrating, remembering, or making decisions? Answer Entry Date Author Status No 10/03/2021 4:00 PM Rupa Borrero RN Active documented in this encounter Progress Notes * Rhonda Modi, PRINT DESIGNER - 08/06/2023 10:20 AM CST Chief Complaint: Myasthenia gravis HPI: The patient is a 78 year old female here for a follow up appointment. She has a history of myasthenia gravis and has been on pyridostigmine 60 mg twice a day. She is not able to take more due to sideeffects of GI upset. She complains of pain in her quadricep muscles and gets fatigued easily. She has pain in the arch of her left foot when sleeping. She has a history of weakness and cramps in her lower extremities. She was taking magnesium to help with the cramps but discontinued the medication due to diarrhea. She has a history of HTN, Afib s/p ablation (on Eliquis), arthritis, Myasthenia Gravis, s/p blepharoplasty, lung cancer s/p RUL lobectomy, s/p blepharoplasty, carotid stenosis, and MGUS. She is following with cardiology and hematology. She has PET scans every 6 months. Previous Medications: Current Outpatient Medications Medication Sig Dispense Refill ??? apixaban 5 MG tablet Take 1 tablet (5 mg total) by mouth 2 (two) times daily. ??? aspirin EC (ECOTRIN) 81 MG tablet Take 1 tablet (81 mg total) by mouth daily. ??? calcium carbonate-vitamin D (OYSTER SHELL CALCIUM-VITAMIN D) 500-200 MG-UNIT Tab Take 1 tablet by mouth daily. ??? hydroCHLOROthiazide 25 MG tablet Take 1 tablet (25 mg total) by mouth every morning. ??? Olmesartan Medoxomil 40 MG Tab Take 1 tablet (40 mg total) by mouth daily. ??? pyridostigmine (MESTINON) 60 MG tablet Take 1 tablet (60 mg total) by mouth 3 (three) times daily. 90 tablet 11 ??? ACETAMINOPHEN-CODEINE 300-30 MG tablet Take 1 tablet by mouth 2 (two) times daily as needed. (Patient not taking: Reported on 08/06/2023) ??? clindamycin (CLEOCIN) 300 MG capsule Take 1 capsule (300 mg total) by mouth every 12 (twelve) hours. (Patient not taking: Reported on 08/06/2023) ??? Cyanocobalamin 100 MCG Tab Take 100 mcg by mouth daily. (Patient not taking: Reported on 08/06/2023) ??? dilTIAZem XR (DILACOR XR) 120 MG 24 hr capsule Take 2 capsules (240 mg total) by mouth daily. (Patient not taking: Reported on 08/06/2023) ??? methocarbamol (ROBAXIN) 500 MG tablet Take 1 tablet (500 mg total) by mouth daily. (Patient nottaking: Reported on 08/06/2023) ??? pantoprazole EC 40 MG tablet ??? TIADYLT ER 120 MG 24 hr capsule 1 capsule (120 mg total) daily. Indications: haven't started yet (Patient not taking: Reported on 08/06/2023) No current facility-administered medications for this visit. Filed Vitals: 08/06/23 1038 BP: (!) 149/54 Pulse: 61 Temp: 97.9 ??F (36.6 ??C) SpO2: 100% Weight: 64 kg (141 lb) Height: 1.6 m (5' 3 ) Past Medical History: Diagnosis Date ??? Abrasion Done at [facility] ??? Anticoagulated ??? Atrial fibrillation (HHS/HCC) (CMS/HCC) ??? Chronic back pain ??? GERD (gastroesophageal reflux disease) ??? HTN (hypertension) ??? 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 Myasthenia gravis (HHS/HCC) ([facility]) Past Surgical History: Procedure Laterality Date ??? ANKLE FRACTURE SURGERY right ??? EYE SURGERY ??? HYSTERECTOMY partial ??? THORACOTOMY,MAJOR,EXPLOR/BIOPSY Right 07/20/2020 Right upper ??? TONSILLECTOMY Family History Problem Relation Name Age of Onset ??? Hypertension Mother ??? Heart Disease Mother ??? Other (TIA) Mother ??? Hypertension Father ??? Heart Disease Father Social History Tobacco Use ??? Smoking status: Former Packs/day: 0.50 Years: 40.00 Additional pack years: 0.00 Total pack years: 20.00 Types: Cigarettes Quit date: 2001 Years since quittin.1 Passive exposure: Never ??? Smokeless tobacco: Never Vaping Use ??? Vaping Use: Never used Substance Use Topics ??? Alcohol use: Yes Comment: occasional use- mixed drinks or wine ??? Drug use: Never REVIEW OF SYSTEMS: Review of Systems HENT: Negative for hearing loss. Eyes: Negative for pain. Cardiovascular: Negative for chest pain. Musculoskeletal: Positive for myalgias. Neurological: Positive for sensory change and weakness. SEE HPI MENTAL STATUS: Patient was alert, awake and oriented x3, regards and follows commands. Normal language. CRANIAL NERVES: II: Pupils were equal, round and reactive to light and accommodation. III, IV, : normal extraocular movements. Mild right eyelid ptosis. V: Normal jaw closure and opening. VII: face was symmetric. VIII: hearing was normal. IX-X: palate elevates at midline. XI: normal symmetric shoulder shrug. Normal 5/5 sternocleidomastoid strength. XII: tongue was midline and strong. MOTOR: Normal strength 5/5 on MRC scale in the upper and lower extremities. Normal muscle tone. Fine finger movements were normal bilaterally. No pronator drift SENSATION: Normal and symmetric to temperature and light touch in the upper and lower extremities. GAIT: Normal stride and base. REFLEXES: Normal 2+/4 in upper and lower extremities. Impression and Plan: To summarize, the patient is here for myasthenia gravis. She has been taking pyridostigmine 60 mg BID since August 2022. She has not been able to tolerate increasing her dose due to GI upset. She has ongoing weakness in her lower extremities and gets fatigued easily. These symptoms are similar to what she reported at her last visit in December. I will repeat her EMG to check for changes. Her last EMG was in 2020. I recommended physical therapy and she will consider this. She will follow up with Dr. Amado in 4 months. PLAN: -Continue pyridostigmine 60 mg BID. May increase to 120 mg in the AM, 60 mg in the PM if needed (prescribed TID) -EMG of the upper and lower extremities -Consider PT for lower extremity weakness -Follow up with Dr. Amado in 4 months Time spent: 40 total minutes reviewing records, history that was separately obtained, performing the exam, providing education to the patient/caregiver, ordering medicine and documenting in the medical record. Rhonda Modi NP SE TESTER documented in this encounter Plan of Treatment Upcoming Encounters Date Type Department Care Team (Late st Contact Info) Description 07/22/2024 11:40 AM CHEESE TESTER Office Visit [facility] Mult[facility]pec[facility] - [facility] [address] [facility], [address] [place] [id number] Kris Amado MD [address] [place] [address] 10/16/2024 11:00 AM CDT Appointment [facility] [place] [address] Jimmy Morris MD [address] [facility]. [facility] [address] [place], [place] [id number] documented as of this encounter Goals Goal Patient Goal Type Associated Problems Recent Progress Patient-Stated? Author Safety ? Patient/family will have appropriate support at home upon discharge Zoila Deng RN documented as of this encounter Results * EMG (09/04/2023 9:00 AM CDT) Narrative [facility] - 09/04/2023 9:00 AM CDT Kris Amado MD ? 09/04/2023 10:35 AM For sensory nerve conduction studies, the amplitude is measured [id number], the latency reported is the distal peak latency, and the conduction velocity, if measured, is determined from onset latencies and is over the limb. For motor nerve conduction studies, the amplitude is measured [id number], the latency reported is the distal onset latency, the conduction velocity is calculated over the limb, and the F wave latency is the minimum latency. Unless otherwise noted, the limb temperature was monitored continuously and remained between 32??C and 36??C during the performance of the NCSs.The study was performed with a concentric needle electrode. Fibrillation and fasciculation activity is graded from none (0) to continuous (4+). The configuration and recruitment pattern of motor unit action potentials under voluntary control, if not normal, are described below. Abbreviations: NCS= nerve conduction study SNAP= sensory nerve action potential CMAP= compound muscle action potential MUP= motor unit potential EMG= electromyogram F IBS= fibrillations PS W's= positive sharp waves Summary of findings Left median motor NCS is normal Left ulnar motor NCS is normal Left peroneal motor NCS is absent Left tibial motor NCS is normal Left median sensory NCS is absent Left ulnar sensory NCS shows prolonged latency Left radial sensory NCS shows small amplitude Left sural and superficial peroneal sensory NCS is absent Left median orthodromic mixed NCS shows prolonged latency with small amplitude Left ulnar orthodromic mixed NCS is normal Needle EMG of the left lower limb shows chronic neurogenic motor unit potentials in gastrocnemius, peroneus tertis, semitendinosis, with reduced recruitment in peroneus tertis Conclusion 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 There is a chronic S1 more than L5 radiculopathy on the left. ?? There is a mild left median mononeuropathy at the wrist [carpal tunnel syndrome] ??There is a mild left ulnar mononeuropathy at the wrist. ?? us Rhonda Modi NP NEUROLOGY ORDERABLES Sirena pike Result [facility] [address] [place] [address], documented in this encounter Visit Diagnoses Diagnosis Muscle weakness of all 4 extremities- Primary Myasthenia gravis (CMS/HCC HHS/HCC) Myasthenia gravis without exacerbation Muscle weakness of all 4 extremities documented in this encounter Care Teams Gis Developer Relationship Specialty Start Date End Date Aliza Bain MD [address] [place] [address] PCP - General FAMILY PRACTICE 05/09/21 Nahid Hickman MD [address] [facility] [address] [place] [id number] PCP - ONCOLOGY HEMATOLOGY/ONCOLOGY 10/03/21 Kiel Vasquez MD [address] [facility] [address] [place] [address] Consulting Physician CARDIOLOGY 10/03/21 documented as of this encounter
--- OUTSIDE RECORDS SUMMARY | 2024-07-01 00:25 | XMS_ITS | Clinical Summary ---
Author Organization Unknown Care Team Providers Care Braille Duplicating Machine Operator Name Role Phone WILFREDO GARMENT PATTERNMAKER, ANA M Unavailable Unavailable KAZAKH (HPH) HPH - OT, VILMA Unavailable Un available CARL RN, MISTY Unavailable Unavailable POPEYE PT, JEREMIAS Unavailable Unavailabl e Payers Payer Name Policy Type Policy Number Effective Date Expira tion Date [employer] MANAGED MEDICARE - [facility] [id number] Problems Condition Name Condition Details Condition Category Status Onset Date Resolution Date Last Treatment Date Treating Clinician Comments ENCNTR FOR SURGICAL AFTCR FOLLOWING SURGERY ON THE CIRC SYS Active 06-18 00:00: 00 PRESENCE OF AORTOCORONAR Y BYPASS GRAFT Active 06-18 00:00: 00 PAROXYSMAL ATRIAL FIBRILLATION Active 06-18 00:00: 00 HYPERTENSIVE HEART DISEASE WITH HEART FAILURE Active 06-18 00:00: 00 CHRONIC DIASTOLIC (CONGESTIVE) HEART FAILURE Active 06-18 00:00: 00 PERIPHERAL VASCULAR DISEASE, UNSPECIFIED Active 06-18 00:00: 00 ATHSCL HEART DISEASE OF [place] CORONARY ARTERY W/O ANG PCTRS Active 06-18 00:00: 00 ANEMIA, UNSPECIFIED Active 06-18 00:00: 00 POLYARTHRITI S, UNSPECIFIED Active 06-18 00:00: 00 GASTRO-ESOPH AGEAL REFLUX DISEASE WITHOUT ESOPHAGITIS Active 06-18 00:00: 00 HYPERLIPIDEM IA, UNSPECIFIED Active 06-18 00:00: 00 ELEVATED WHITE BLOOD CELL COUNT, UNSPECIFIED Active 06-18 00:00: 00 OCCLUSION AND STENOSIS OF UNSPECIFIED CAROTID ARTERY Active 06-18 00:00: 00 ASSISTED (CURRENT) USE OF ASPIRIN Active 06-18 00:00: 00 ASSISTED (CURRENT) USE OF ANTICOAGULAN TS Active 06-18 00:00: 00 PERSONAL HISTORY OF NICOTINE DEPENDENCE Active 06-18 00:00: 00 IRON DEFICIENCY ANEMIA, UNSPECIFIED Active 10-29 00:00: 00 Allergies, Adverse Reactions, Alerts Allergy Name Allergy Type Status Severity Reaction(s) Onset Date Inactive Date Treating Clinician Comments PENICILINS Propensity to adverse reactions Active 11-14 21:12: 32 Medications Ordered Medication Name Filled Medication Name Start Date Stop Date Current Medication? Ordering Clinician Indication Dosage Frequency Signature (SIG) Comments Components hydrochloro thiazide 25 mg tablet 07-31 00:00: 00 11-08 23:59 :00 No [id number] Per instruc tions EVERY DAY Per instructio ns EVERY DAY (route: oral) Med Classific ation: Cardiovas cular Therapy Agents olmesartan 40 mg tablet 08-12 00:00: 00 11-21 23:59 :00 No [id number] 1 tablet EVERY DAY 1 tablet EVERY DAY (route: oral) Med Classific ation: Cardiovas cular Therapy Agents aspirin 81 mg tablet,marisela yed release 10-16 00:00: 00 Yes [id number] 1 tablet DAILY 1 tablet DAILY (route: oral) Med Classific ation: Hematolog ical Agents cyanocobala min (vit B-12) 100 mcg tablet 11-08 00:00: 00 11-21 23:59 :00 No [id number] 1 tablet DAILY 1 tablet DAILY (route: oral) Med Classific ation: Electroly te Balance-N utritiona l Products Eliquis 5 mg tablet 10-16 00:00: 00 Yes [id number] 1 tablet 2 TIMES DAILY 1 tablet 2 TIMES DAILY (route: oral) Med Classific ation: Hematolog ical Agents iron, carbonyl, vitamin c 30-10-25mg 30-10-25 10-16 00:00: 00 11-21 23:59 :00 No [id number] 1 mg 2 TIMES DAILY 1 mg 2 TIMES DAILY (route: BY MOUTH) Med Classific ation: ELECTROLY JASMINE/VITAM INS magnesium 250 mg tablet 11-08 00:00: 00 11-21 23:59 :00 No [id number] 1 tablet DAILY 1 tablet DAILY (route: oral) Med Classific ation: Electroly te Balance-N utritiona l Products Mestinon 60 mg tablet 06-18 00:00: 00 11-21 23:59 :00 No [id number] 1 tablet 3 TIMES DAILY 1 tablet 3 TIMES DAILY (route: oral) Med Classific ation: Locomotor System metoprolol tartrate 25 mg tablet 11-08 00:00: 00 Yes [id number] 1 tablet 2 TIMES DAILY 1 tablet 2 TIMES DAILY (route: oral) Med Classific ation: Cardiovas cular Therapy Agents oxycodone 5 mg tablet 11-08 00:00: 00 Yes [id number] 1 tablet EVERY 4 HOURS 1 tablet EVERY 4 HOURS (route: oral) Med Classific ation: Analgesic , Anti-infl ammatory or Antipyret ic Oyster Shell Calcium-Vit bai D3 500 mg-5 mcg (200 unit) tablet 11-08 00:00: 00 Yes [id number] 1 tablet DAILY 1 tablet DAILY (route: oral) Med Classific ation: Electroly te Balance-N utritiona l Products Protonix 20 mg tablet,marisela yed release 11-08 00:00: 00 11-21 23:59 :00 No [id number] 1 tablet 2 TIMES DAILY 1 tablet 2 TIMES DAILY (route: oral) Med Classific ation: Gastroint estinal Therapy Agents atorvastati n 40 mg tablet 11-08 00:00: 00 11-21 23:59 :00 No [id number] 1 tablet BEDTIME 1 tablet BEDTIME (route: oral) Med Classific ation: Cardiovas cular Therapy Agents cyanocobala min (vitamin B-12) 2,500 mcg tablet 12-05 00:00: 00 Yes [id number] 1 tablet DAILY 1 tablet DAILY (route: oral) Med Classific ation: Electroly te Balance-N utritiona l Products pantoprazol e 40 mg tablet,marisela yed release 11-21 00:00: 00 Yes [id number] 1 tablet 2 TIMES DAILY 1 tablet 2 TIMES DAILY (route: oral) Med Classific ation: Gastroint estinal Therapy Agents pyridostigm ine bromide 60 mg tablet 11-21 00:00: 00 Yes [id number] 0.5 tablet 2 TIMES DAILY 0.5 tablet 2 TIMES DAILY (route: oral) Med Classific ation: Locomotor System Vitamin C 500 mg tablet 11-21 00:00: 00 Yes [id number] 1 tablet DAILY 1 tablet DAILY (route: oral) Med Classific ation: Electroly te Balance-N utritiona l Products Vitamin D3 25 mcg (1,000 unit) capsule 11-21 00:00: 00 Yes [id number] 1 capsule DAILY 1 capsule DAILY (route: oral) Med Classific ation: Electroly te Balance-N utritiona l Products sucralfate 1 gram tablet 12-06 00:00: 00 01-10 23:59 :00 No [id number] 1 tablet 4 TIMES DAILY 1 tablet 4 TIMES DAILY (route: oral) Med Classific ation: Gastroint estinal Therapy Agents Vital Signs Vital Name Observation Time Observation Value Commen ts Temperature 2024-01-10 12:06:00.000 97.1 [degF] Temperature 2024-01-01 10:45:00.000 97.9 [degF] Temperature 2023-12-25 11:37:00.000 98.2 [degF] Temperature 2023-12-19 10:59:00.000 97.5 [degF] Temperature 2023-12-11 10:42:00.000 98.2 [degF] Temperature 2023-12-05 13:16:00.000 97.7 [degF] Temperature 2023-12-04 13:45:00.000 98.4 [degF] Temperature 2023-11-28 11:18:00.000 98.5 [degF] Temperature 2023-11-28 09:35:00.000 98.1 [degF] Temperature 2023-11-20 15:02:00.000 97.5 [degF] Temperature 2023-11-19 11:41:00.000 98.7 [degF] Temperature 2023-11-19 10:56:00.000 97.5 [degF] Temperature 2023-11-15 09:44:00.000 97.2 [degF] BMI (%) 2023-11-15 09:44:00.000 24 kg/m2 Height 2023-11-15 09:44:00.000 63 [in_us] Pulse 2024-01-10 12:06:00.000 74 /min Pulse 2024-01-01 10:45:00.000 59 /min Pulse 2023-12-25 11:37:00.000 70 /min Pulse 2023-12-19 10:59:00.000 74 /min Pulse 2023-12-11 10:42:00.000 70 /min Pulse 2023-12-05 13:16:00.000 53 /min Pulse 2023-12-04 13:45:00.000 74 /min Pulse 2023-11-28 11:18:00.000 60 /min Pulse 2023-11-28 09:35:00.000 68 /min Pulse 2023-11-20 15:02:00.000 72 /min Pulse 2023-11-19 11:41:00.000 85 /min Pulse 2023-11-19 10:56:00.000 76 /min Pulse 2023-11-15 09:44:00.000 59 /min O2 Saturation (%) 2024-01-10 12:06:00.000 99 % O2 Saturation (%) 2024-01-01 10:45:00.000 99 % O2 Saturation (%) 2023-12-25 11:37:00.000 96 % O2 Saturation (%) 2023-12-19 10:59:00.000 98 % O2 Saturation (%) 2023-12-11 10:42:00.000 97 % O2 Saturation (%) 2023-12-05 13:16:00.000 94 % O2 Saturation (%) 2023-12-04 13:45:00.000 97 % O2 Saturation (%) 2023-11-28 11:18:00.000 98 % O2 Saturation (%) 2023-11-28 09:36:00.000 97 % O2 Saturation (%) 2023-11-20 15:02:00.000 95 % O2 Saturation (%) 2023-11-19 11:41:00.000 96 % O2 Saturation (%) 2023-11-19 10:56:00.000 95 % O2 Saturation (%) 2023-11-15 09:44:00.000 96 % Respirations 2024-01-10 12:06:00.000 18 /min Respirations 2024-01-01 10:45:00.000 18 /min Respirations 2023-12-25 11:37:00.000 18 /min Respirations 2023-12-19 10:59:00.000 16 /min Respirations 2023-12-11 10:42:00.000 18 /min Respirations 2023-12-05 13:16:00.000 18 /min Respirations 2023-12-04 13:45:00.000 20 /min Respirations 2023-11-28 11:18:00.000 20 /min Respirations 2023-11-28 09:35:00.000 18 /min Respirations 2023-11-20 15:02:00.000 18 /min Respirations 2023-11-19 11:41:00.000 18 /min Respirations 2023-11-19 10:56:00.000 18 /min Respirations 2023-11-15 09:44:00.000 18 /min Weight (lbs) 2024-01-10 12:06:00.000 126 [lb_av] Weight (lbs) 2024-01-01 10:47:00.000 126.8 [lb_av] Weight (lbs) 2023-12-25 11:37:00.000 125.8 [lb_av] Weight (lbs) 2023-12-19 10:59:00.000 128 [lb_av] Weight (lbs) 2023-12-11 10:42:00.000 128.6 [lb_av] Weight (lbs) 2023-12-05 13:21:00.000 127 [lb_av] Weight (lbs) 2023-12-04 13:45:00.000 128.6 [lb_av] Weight (lbs) 2023-11-28 09:37:00.000 132.2 [lb_av] Weight (lbs) 2023-11-20 15:20:00.000 136 [lb_av] Weight (lbs) 2023-11-15 09:44:00.000 139 [lb_av] Systolic Blood Pressure 2024-01-10 12:06:00.000 144 mm [Hg] Systolic Blood Pressure 2024-01-01 10:45:00.000 160 mm [Hg] Systolic Blood Pressure 2023-12-25 11:37:00.000 152 mm [Hg] Systolic Blood Pressure 2023-12-19 10:59:00.000 118 mm [Hg] Systolic Blood Pressure 2023-12-11 10:42:00.000 142 mm [Hg] Systolic Blood Pressure 2023-12-05 13:16:00.000 150 mm [Hg] Systolic Blood Pressure 2023-12-04 13:45:00.000 146 mm [Hg] Systolic Blood Pressure 2023-11-28 11:18:00.000 152 mm [Hg] Systolic Blood Pressure 2023-11-28 09:35:00.000 152 mm [Hg] Systolic Blood Pressure 2023-11-20 15:02:00.000 158 mm [Hg] Systolic Blood Pressure 2023-11-19 11:41:00.000 165 mm [Hg] Systolic Blood Pressure 2023-11-19 10:56:00.000 165 mm [Hg] Systolic Blood Pressure 2023-11-15 09:44:00.000 170 mm [Hg] Diastolic Blood Pressure 2024-01-10 12:06:00.000 74 mm [Hg] Diastolic Blood Pressure 2024-01-01 10:45:00.000 62 mm [Hg] Diastolic Blood Pressure 2023-12-25 11:37:00.000 70 mm [Hg] Diastolic Blood Pressure 2023-12-19 10:59:00.000 78 mm [Hg] Diastolic Blood Pressure 2023-12-11 10:42:00.000 60 mm [Hg] Diastolic Blood Pressure 2023-12-05 13:16:00.000 64 mm [Hg] Diastolic Blood Pressure 2023-12-04 13:45:00.000 80 mm [Hg] Diastolic Blood Pressure 2023-11-28 11:18:00.000 62 mm [Hg] Diastolic Blood Pressure 2023-11-28 09:35:00.000 72 mm [Hg] Diastolic Blood Pressure 2023-11-20 15:02:00.000 68 mm [Hg] Diastolic Blood Pressure 2023-11-19 11:41:00.000 80 mm [Hg] Diastolic Blood Pressure 2023-11-19 10:56:00.000 60 mm [Hg] Diastolic Blood Pressure 2023-11-15 09:44:00.000 60 mm [Hg] Plan of Treatment Planned Activity Planned Date Details Comments Future Scheduled Test RN TO EVAL UATE PATIENT SECONDARY TO DEFICITS/CONCERNS FOUND DURING EVALUATION INCLUDING MEDICATION EDUCATION AND MANAGEMENT. [code = RN TO EVALUATE PATIENT SECONDARY TO DEFICITS/CONCERNS FOUND DURING EVALUATION INCLUDING MEDICATION EDUCATION AND MANAGEMENT.] Future Scheduled Test PHYSICAL T HERAPIST TO EVALUATE PATIENT SECONDARY TO FUNCTIONAL DEFICITS/SAFETY CONCERNS. [code = PHYSICAL THERAPIST TO EVALUATE PATIENT SECONDARY TO FUNCTIONAL DEFICITS/SAFETY CONCERNS.] Future Scheduled Test OCCUPATION AL THERAPIST TO EVALUATE PATIENT SECONDARY TO DEFICITS/CONCERNS FOUND DURING EVALUATION INCLUDING OVERALL WEAKNESS. [code = OCCUPATIONAL THERAPIST TO EVALUATE PATIENT SECONDARY TO DEFICITS/CONCERNS FOUND DURING EVALUATION INCLUDING OVERALL WEAKNESS.] Future Scheduled Test PHYSICAL T HERAPIST TO ASSESS BEST PRACTICE INTERVENTIONS TO ASSIST PATIENTS TO IMPROVE OR STABILIZE MEDICAL STATUS AND PREVENT RE-HOSPITALIZATION. MEASURES INCLUDING REVIEW AND IDENTIFICATION OF CONCERNS FOR THE FOLLOWING AREAS: DRUG REGIMEN, ENVIRONMENTAL SAFETY ISSUES AND FALLS, PRESSURE ULCERS, PAIN, AND DISEASE MANAGEMENT. [code = PHYSICAL THERAPIST TO ASSESS BEST PRACTICE INTERVENTIONS TO ASSIST PATIENTS TO IMPROVE OR STABILIZE MEDICAL STATUS AND PREVENT RE-HOSPITALIZATION. MEASURES INCLUDING REVIEW AND IDENTIFICATION OF CONCERNS FOR THE FOLLOWING AREAS: DRUG REGIMEN, ENVIRONMENTAL SAFETY ISSUES AND FALLS, PRESSURE ULCERS, PAIN, AND DISEASE MANAGEMENT.] Future Scheduled Test PHYSICAL T HERAPY TO ESTABLISH /UPGRADE/DOWNGRADE THERAPEUTIC EXERCISE PROGRAM AND INSTRUCT PATIENT/CAREGIVER ON EXERCISE PRECAUTIONS WITH WRITTEN HOME PROGRAM. MAY INCLUDE PROM, AAROM, AROM, RROM APPROPRIATE TO IMPROVE FUNCTIONAL STRENGTH AND RANGE OF MOTION. [code = PHYSICAL THERAPY TO ESTABLISH /UPGRADE/DOWNGRADE THERAPEUTIC EXERCISE PROGRAM AND INSTRUCT PATIENT/CAREGIVER ON EXERCISE PRECAUTIONS WITH WRITTEN HOME PROGRAM. MAY INCLUDE PROM, AAROM, AROM, RROM APPROPRIATE TO IMPROVE FUNCTIONAL STRENGTH AND RANGE OF MOTION.] Future Scheduled Test PHYSICAL T HERAPY TO INSTRUCT PATIENT/CAREGIVER ON GAIT TRAINING TECHNIQUES USING APPROPRIATE ASSISTIVE DEVICE, PROPER BODY MECHANICS TO IMPROVE MOBILITY, AND PREVENT INJURY OF PATIENT AND/OR CAREGIVER. [code = PHYSICAL THERAPY TO INSTRUCT PATIENT/CAREGIVER ON GAIT TRAINING TECHNIQUES USING APPROPRIATE ASSISTIVE DEVICE, PROPER BODY MECHANICS TO IMPROVE MOBILITY, AND PREVENT INJURY OF PATIENT AND/OR CAREGIVER.] Future Scheduled Test PHYSICAL T HERAPY TO INSTRUCT PATIENT/CAREGIVER ON BALANCE AND BALANCE STRATEGIES TO IMPROVE SAFE MOBILITY AND REDUCE RISK FOR FALL AND INJURY. [code = PHYSICAL THERAPY TO INSTRUCT PATIENT/CAREGIVER ON BALANCE AND BALANCE STRATEGIES TO IMPROVE SAFE MOBILITY AND REDUCE RISK FOR FALL AND INJURY.] Goal Patient Goal - P ATIENT WANTS TO GET BACK TO HER PLOF, TO BE ABLE TO PARTICIPATE IN BOWLING AND PLAYING Vhoto BALL. Goal Provider Goal - NURSING EVALUATION TO BE COMPLETE WITH RECOMMENDATIONS AND WRITTEN TREATMENT PLAN OF CARE ESTABLISHED FOR PHYSICIANS SIGNATURE Goal Provider Goal - PHYSICAL THERAPY EVALUATION TO BE COMPLETED WITH RECOMMENDATIONS AND/OR WRITTEN TREATMENT PLAN OF CARE ESTABLISHED FOR THE PHYSICIANS SIGNATURE Goal Provider Goal - OCCUPATIONAL THERAPY EVALUATION TO BE COMPLETED WITH RECOMMENDATIONS AND/OR WRITTEN TREATMENT PLAN OF CARE ESTABLISHED FOR THE PHYSICIANS SIGNATURE. Goal Provider Goal - PATIENT/CAREGIVER VERBALIZES UNDERSTANDING OF THE INITIAL BEST PRACTICE RECOMMENDATIONS. PHYSICIAN TO BE NOTIFIED APPROPRIATE FOR ANY CHANGES OR COMPLICATIONS THROUGHOUT THE CERTIFICATION PERIOD. Goal Provider Goal - PATIENT/CAREGIVER WILL PERFORM THERAPEUTIC EXERCISE/S AND DEMONSTRATE PARTICIPATION IN A HOME PROGRAM. Goal Provider Goal - PATIENT/CAREGIVER WILL DEMONSTRATE IMPROVED GAIT TECHNIQUES TO MINIMIZE RISK OF INJURY. Goal Provider Goal - PATIENT/CAREGIVER WILL DEMONSTRATE IMPROVED BALANCE AND REDUCE THE RISK OF FALLS AND INJURY. Reason for Visit INDEPENDENT IN THE HOME Encounters Start Date/Time End Date/Time Encounter Type Admission Type Attending [facility] Care Department Encounter ID Discharge Date Discharge Status Discharge Condition Discharge Reason Percent Goals Met 2023-11-15 00:00:00 2024-01-10 00:00:00 Outpatient [facility] [id number] 2024-01-10 00:00:00 DISCHARGE TO HOME OR SELF CARE INDEPENDEN T IN THE HOME GOALS MET ( ONLY) 97.56
--- OUTSIDE RECORDS SUMMARY | 2024-07-01 00:25 | XMS_ITS | Encounter Summary ---
Author Organization [facility] Address [facility] [place] [address] [place] [address] Care Team Providers Care Near East Archeology Professor Name Role Phone Aliza Bain MD Primary Care Provider Nahid Hickman MD Unavailable [phone] Kiel Vasquez MD Unavailable [phone] Encounter Details Date Type Department Care Team (Latest Contact Info) Description 05/23/2023 Scan HEALTH INFO SRVCS Scanned, Doc Med Group Social History Tobacco Use Types Packs/Day Years [...] Status No 10/03/2021 4:00 PM CDT Rupa Rodriguez, TUNDE Active * Because of a physical, mental, [...] st Contact Info) Description 07/22/2024 11:40 AM RANGE MOUNTER Office Visit [facility] Medical Group Multispecialty Care - [facility] [address] [facility], [address] [place] [phone] Kris Amado MD [address] [place] [address] 10/16/2024 11:00 AM CDT Appointment [facility] [place] [address] Jimmy Morris MD [address] [facility]. [address] [place], [place] [phone] documented as of this encounter Goals Goal Patient Goal Type Associated Problems Recent Progress Patient-Stated? Author Safety ? Patient/family will have appropriate support at home upon discharge General No Zoila Gan, TUNDE documented as of this encounter Visit Diagnoses Not on filedocumented in this encounter Care Teams Near [place] Archeology Professor Relationship Specialty Start Date End Date Aliza Bain MD [address] [place] [address] PCP - General FAMILY PRACTICE 05/09/21 Nahid Hickman MD [address] [phone] PCP - ONCOLOGY HEMATOLOGY/ONCOLOGY 10/03/21 Kiel Vasquez MD [address] [facility] [address] [place] [phone] Consulting Physician CARDIOLOGY 10/03/21 documented as of this encounter
--- OUTSIDE RECORDS SUMMARY | 2024-07-01 00:25 | XMS_ITS | Encounter Summary ---
Author Organization [facility] [place] [facility] Address [facility] [facility] [place] [address] [place] [address] Care Team Providers Care Water Systems Engineer Name Role Phone Aliza Bain MD Primary Care Provider Nahid Hickman MD Unavailable [phone] Kiel Vasquez MD Unavailable [phone] Encounter Details Date Type Department Care Team (Latest Contact Info) Description 10/17/2023 Travel Social History Tobacco Use Types Packs/Day [...] st Contact Info) Description 07/22/2024 11:40 AM CABLE WORKER HELPER Office Visit [facility] Medical Group Multispecialty Care - [facility] [address] [facility], [address] [place] [address] Kris Amado MD [address] [place] [address] 10/16/2024 11:00 AM CDT Appointment [facility] [place] [address] Jimmy Morris MD [address] [facility]. [address] [place] [address] documented as of this encounter Goals Goal Patient Goal Type Associated Problems Recent Progress Patient-Stated? Author Safety ? Patient/family will have appropriate support at home upon discharge General No Zoila Gan, TUNDE documented as of this encounter Visit Diagnoses Not on filedocumented in this encounter Care Teams Water Systems Engineer Relationship Specialty Start Date End Date Aliza Bain MD [address] [place] [address] PCP - General FAMILY PRACTICE 05/09/21 Nahid Hickman MD [address] [phone] PCP - ONCOLOGY HEMATOLOGY/ONCOLOGY 10/03/21 Kiel Vasquez MD [address] [facility] [address] [place] [phone] Consulting Physician CARDIOLOGY 10/03/21 documented as of this encounter
--- OUTSIDE RECORDS SUMMARY | 2024-07-01 00:25 | XMS_ITS | Encounter Summary ---
Author Organization [facility] Address [address] [place] [address] Care Team Providers Care Seo Manager Name Role Phone Billie Blackwood MD Primary Care Provider Encounter Details Date Type Department Care Team (Late st Contact Info) Description 02/20/2024 Lab Requisition [facility] - Pathology Lab [address] [place] [address] René Chavez MD [address] [facility] [address] [place] [id number] Monoclonal gammopathy Social History Tobacco Use Types Packs/Day Years Used Date Smoking Tobacco: Never Assessed Sex and Gender Information Value Date Recorded Sex Assigned at Not on file Gender Identity Not on file Sexual Orientation Not on file documented as of this encounter Plan of Treatment Not on file documented as of this encounter Procedures Procedure Name Priority Date/Time Associated Diagnosis Comments FLOW CYTOMETRY BONE MARROW Routine 02/20/2024 9:22 AM CDT Monoclonal gammopathy documented in this encounter Results * FLOW CYTOMETRY BONE MARROW (02/20/2024 9:22 AM CDT) Case Report Flow Cytometry ?Case: [id number] ? Authorizing Provider: ??René Chavez ? Collected: ? 02/20/2024 09:22 AM ? MD Ruben ? Ordering Location: ? [facility] - ??Received: ?02/20/2024 02:48 PM ? Pathology Lab ? Pathologist: ? Cristóbal Khan, ? Specimen: ?Bone Marrow ? 02/21/2024 10:02 AM CDT [facility] Final Diagnosis Bone marrow, flow cytometry: - Abnormal plasma cell population detected (1.5% of overall events) 02/21/2024 10:02 AM CDT [facility] Flow Cytometry Interpretation Viability: 88% B-cells: polytypic, kappa:lambda ratio 1:1 T-cells: not increased Blasts: not increased, ~1% of overall events Plasma cells: atypical, CD38+, CD138+, CD19 loss (aberrant), CD56+ (aberrant), however, no clear light chain restriction. Core tissue sections are pending. A bone marrow aspirate smear prepared from the flow cytometry specimen has been reviewed for quality assurance assistant purposes. 02/21/2024 10:02 AM [facility] Flow Cytometry Results Differential Result Comment Flow Cell Count /uL 135,100 Total Viability % 88.0 Lymphocytes % 5 Dim CD45 Region % 6 Monocytes % 13 Granulocytes % 76 02/21/2024 10:02 AM [facility] Reason for test Monoclonal gammopathy 273.1 02/21/2024 10:02 AM [facility] Client Specimen ID # [id number] 02/21/2024 10:02 AM [facility] Number of markers 14 were performed. A-2 Flow CD10 A-3 Flow CD13 A-5 Flow CD20 A-13 Flow CD117 A-14 FLOW CD138 A-1 Flow CD5 A-4 Flow CD19 A-6 Flow CD33 A-7 Flow CD34 A-8 Flow CD45 A-11 Flow CD38 A-12 Flow CD56 A-9 Yoder+CD19+ A-10 Lambda+CD19+ 02/21/2024 10:02 AM [facility] Pathologist Location at [facility] 02/21/2024 10:02 AM [facility] Disclaimer Test performed at [facility], [address] [place] [address], [address]. *The established laboratory minimum viability is 70%. Values below the minimum may result in the failure to find an abnormal population of cells. This test was developed and its performance characteristics determined by the Flow Cytometry Laboratory. It has not been cleared by the [place] Food and Drug Administration (FDA). The FDA has determined that such clearance or approval is not necessary. This test is used for clinical purposes. It should not be regarded as investigational or for research. This laboratory is regulated under the Clinical Laboratory Improvement Amendments of 1998 (CLIA) as a qualified to perform high complexity clinical testing. 02/21/2024 10:02 AM CDT [facility] Embedded Images 10:02 AM CDT [facility] Pathology/Cytolo gy BONE MARROW SPECIMEN / Unknown 02/20/2024 9:22 AM CDT 02/20/2024 2:48 PM CDT René Chavez MD LAB - PATHO LOGY/CYTOLOGY ORDERABLES Performing Organization Address City/State/[facility] Co de Phone Number [facility] [address] [phone] documented in this encounter Visit Diagnoses Diagnosis Monoclonal gammopathy Monoclonal paraproteinemia documented in this encounter Care Teams Seo Manager Relationship Specialty Start Date End Date Billie Blackwood MD [address] [place] [phone] PCP - General 07/20/20 documented as of this encounter
--- OUTSIDE RECORDS SUMMARY | 2024-07-01 00:25 | XMS_ITS | Encounter Summary ---
Author Organization [facility] Address Critical access hospital6 [facility] [place] [address] [place] [address] Care Team Providers Care Electrical Power Station Technician Name Role Phone Aliza Bain MD Primary Care Provider Nahid Hickman MD Unavailable [phone] Kiel Vasquez MD Unavailable [phone] Encounter Details Date Type Department Care Team (Latest Contact Info) Description 08/06/2023 Travel Social History Tobacco Use Types Packs/Day [...] st Contact Info) Description 07/22/2024 11:40 AM AIRPLANE PILOT CHIEF Office Visit [facility] Medical Group Multispecialty Care - [facility] [address], [address] [place] [address] Kris Amado MD [address] [place] [address] 10/16/2024 11:00 AM CDT Appointment [facility] [place] [address] Jimmy Morris MD Three [facility]. [address] [place] [address] documented as of this encounter Goals Goal Patient Goal Type Associated Problems Recent Progress Patient-Stated? Author Safety ? Patient/family will have appropriate support at home upon discharge General No Zoila Gan, TUNDE documented as of this encounter Visit Diagnoses Not on filedocumented in this encounter Care Teams Electrical Power Station Technician Relationship Specialty Start Date End Date Aliza Bain MD [address] [place] [address] PCP - General FAMILY PRACTICE 05/09/21 Nahid Hickman MD [address] [phone] PCP - ONCOLOGY HEMATOLOGY/ONCOLOGY 10/03/21 Kiel Vasquez MD [address] [facility] 2014 [place] [address] Consulting Physician CARDIOLOGY 10/03/21 documented as of this encounter
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
--- OUTSIDE RECORDS SUMMARY | 2024-07-01 00:25 | XMS_ITS | Encounter Summary ---
Author Organization [facility] Address [facility]6 [facility] [place] [address] [place] [address] Care Team Providers Care Grinding And Polishing Laborer Name Role Phone Aliza Bain MD Primary Care Provider Nahid Hickman MD Unavailable [phone] Kiel Vasquez MD Unavailable [phone] Reason for Visit * Reason Onset Date Comments Results 09/28/2022 Encounter Details Date Type Department Care Team (Late st Contact Info) Description 09/28/2022 Telephone [facility] Medical Group Neurology Speciality Clinic - [address] [place] [address] Kris Amado MD [address] [place] [phone] Results Social History Tobacco Use Types Packs/Day [...] Recorded In the last 10 days, have yo u been in contact with someone who [...] documented in this encounter Progress Notes * Bettina Bales MA - 09/28/2022 8:42 AM CDT Contacted pt in regards to results. Pt gave a verbal understanding to results given * Bettina Bales MA - 09/28/2022 8:42 AM CDT ----- Message from Kris Amado MD sent at 09/28/2022 8:40 AM CDT ----- Please let her know that the ultrasound shows that she has narrowing of carotid arteries slightly progressed as compared to last time. I will put a referral to our vascular surgeon to get this further evaluated. documented in this encounter Plan of Treatment Upcoming Encounters Date Type Department Care Team (Late st Contact Info) Description 07/22/2024 11:40 AM GARNETT MACHINE OPERATOR HELPER Office Visit [facility] Medical Group [facility]ialty Care [facility] [address] [place] [address] Kris Amado MD [address] [place] [address] 10/16/2024 11:00 AM CDT Appointment [facility] [address] [place] [address] Jimmy Morris MD Three [facility] [address] [place], [place] [id number] documented as of this encounter Goals Goal Patient Goal Type Associated Problems Recent Progress Patient-Stated? Author Safety ? Patient/family will have appropriate support at home upon discharge General Zoila Gold, TUNED documented as of this encounter Visit Diagnoses Not on filedocumented in this encounter Care Teams Grinding And Polishing Laborer Relationship Specialty Start Date End Date Aliza Bain MD [address] [place] [address] PCP - General FAMILY PRACTICE 05/09/21 Nahid Hickman MD [address] [facility] [address] [place] [address] PCP - ONCOLOGY HEMATOLOGY/ONCOLOGY 10/03/21 Kiel Vasquez MD [address] [facility] [address] [place] [address] Consulting Physician CARDIOLOGY 10/03/21 documented as of this encounter
--- OUTSIDE RECORDS SUMMARY | 2024-07-01 00:25 | XMS_ITS | Encounter Summary ---
Author Organization [facility] Address [address] [place] [address] Care Team Providers Care Sewer Name Role Phone Piter Walker MD Primary Care Provider [phone] Reason for Visit * Reason Comments Imm Inj PT REQUEST FLU VACCI NE Encounter Details Date Type Department Care Team (Late st Contact Info) Description 04/26/2017 5:20 PM HAND LACER Office Visit [facility] [address] [place] [address] Provider, Nabeel Exp [address] Need for immunization against influenza (Primary Dx) Social History Tobacco Use Types Packs/Day Years Used Date Smoking Tobacco: Never Assessed Sex and Gender Information Value Date Recorded Sex Assigned at Not on file Gender Identity Not on file Sexual Orientation Not on file documented as of this encounter Progress Notes * Yuan Rivera APRN-CNP - 04/26/2017 4:54 PM CST SIEBEL CONSULTANT ADMIN HIGH DOSE FLU VACCINE PER PROTOCOL. PT TOLERATED PROCEDURE WITHOUT INCIDENT. LACER documented in this encounter Plan of Treatment Not on file documented as of this encounter Visit Diagnoses Diagnosis Need for immunization against influenza- Primary Need for prophylactic vaccination and inoculation against influenza documented in this encounter Care Teams Sewer Relationship Specialty Start Date End Date Piter Walker MD [address] [place] [phone] PCP - General Family Medicine 04/26/17 07/19/20 documented as of this encounter
--- OUTSIDE RECORDS SUMMARY | 2024-07-01 00:25 | XMS_ITS | Continuity of Care Document ---
Author Organization [facility] Address [address] [place] [address] [address] [place] [address] Phone Care Team Providers Care Oil Spreader Operator Name Role Phone Sorin Arteaga Unavailable Unavailable Procedures Procedure Date Eye Exam, New Patient Refraction Advance Directives Directive Yes / No Effective Date File Name No Information Encounters Encounter Description Practice Location Reason(s) For Visit Diagnoses Date Provider Providers Copied on Encounter [facility], [address] [place] [address] [address], [place], [place], [id number], [place] tel:[phone] [facility] No Information [address] [place], [place] [address] [place] [address], [place], [address], [place]. tel:[phone] Referring Provider: [facility] [address], [place], [place], [facility]. tel:[phone] Family History Family Member Type Diagnosis Age At Onset No Information Payers Payer name Insurance type Covered green party ID Authoriza tialton(s) [employer] Out Of [place] [id number] Social History Type Description Quantity Date Captured Comments Sex Female Smoking Status No Information Chief Complaint And Reason For Visit No Information Reason For Referral Reason For Referral No Information History Of Present Illness Encounter Date Complaint History Of Prese nt Illness No Information Functional Status Date Functional Assessmen t No Information Instructions Date Instruction Additional Infor mation No Information Assessments Type Assessment Date No Information Patient Care Teams Name Effective Dates (start - stop) Status Members No Information
--- OUTSIDE RECORDS SUMMARY | 2024-07-01 00:25 | XMS_ITS | Patient Health Summary ---
Author Organization [facility] Address [address] [place] [address] Care Team Providers Care Roof Foreman Name Role Phone Billie Blackwood MD Primary Care Provider Note from [facility],non-owned Affiliates and Associated Physician Practices is amultiple site organization consisting of ambulatory clinics and hospital sitesin [place], [place], [place] and [place]. This disclosure is being madepursuant to the Care Everywhere program and may not contain all information available regarding this patient. Last updated 18.[facility] Allergies No known active allergies Medications Be aware that medications may not be up to date on this document. Always verify current medications with the patient. No known medications Immunizations * INFLUENZA VACCINE, HIGH-DOSE, QUADR. (FLUZONE HIGH-DOSE QUADRIVALENT; 65Y+), 0.7 ML (HD-IIV4)(Given 04/26/2017) Social History Tobacco Use Types Packs/Day Years Used Date Smoking Tobacco: Never Assessed Sex and Gender Information Value Date Recorded Sex Assigned at Not on file Gender Identity Not on file Sexual Orientation Not on file Procedures * BONE MARROW BIOPSY (STL)(Performed 02/20/2024) Performed for Illness, unspecified * FLOW CYTOMETRY BONE MARROW(Performed 02/20/2024) Performed for Monoclonal gammopathy Results * FLOW CYTOMETRY BONE MARROW (02/20/2024 9:22 AM CDT) Case Report Flow Cytometry ?Case: [id number] ? Authorizing Provider: ??Wreford, René ? Collected: ? 02/20/2024 09:22 AM ? Ruben, ? Ordering Location: ? [facility] - ??Received: ?02/20/2024 02:48 PM ? Pathology Lab ? Pathologist: ? Bill, Cristóbal H, MD ? Specimen: ?Bone Marrow ? 02/21/2024 10:02 AM CDT [facility] Final Diagnosis Bone marrow, flow cytometry: - Abnormal plasma cell population detected (1.5% of overall events) 02/21/2024 10:02 AM [facility] Flow Cytometry Interpretation Viability: 88% B-cells: polytypic, kappa:lambda ratio 1:1 T-cells: not increased Blasts: not increased, ~1% of overall events Plasma cells: atypical, CD38+, CD138+, CD19 loss (aberrant), CD56+ (aberrant), however, no clear light chain restriction. Core tissue sections are pending. A bone marrow aspirate smear prepared from the flow cytometry specimen has been reviewed for quality rn purposes. 02/21/2024 10:02 AM [facility] Flow Cytometry Results Differential Result Comment Flow Cell Count /uL 135,100 Total Viability % 88.0 Lymphocytes % 5 Dim CD45 Region % 6 Monocytes % 13 Granulocytes % 76 02/21/2024 10:02 AM [facility] Reason for test Monoclonal gammopathy 273.1 02/21/2024 10:02 AM [facility] Client Specimen ID # [id number] 02/21/2024 10:02 AM [facility] Number of markers 14 were performed. A-2 Flow CD10 A-3 Flow CD13 A-5 Flow CD20 A-13 Flow CD117 A-14 FLOW CD138 A-1 Flow CD5 A-4 Flow CD19 A-6 Flow CD33 A-7 Flow CD34 A-8 Flow CD45 A-11 Flow CD38 A-12 Flow CD56 A-9 Callahan+CD19+ A-10 Lambda+CD19+ 02/21/2024 10:02 AM [facility] Pathologist Location at [facility] 02/21/2024 10:02 AM [facility] Disclaimer Test performed at [facility], [address] [place] [address], [address]. *The established laboratory minimum viability is 70%. [...] complexity clinical testing. 02/21/2024 10:02 AM CDT [facility] Embedded Images 10:02 AM CDT [facility] Pathology/Cytolo gy BONE MARROW SPECIMEN / Unknown 02/20/2024 9:22 AM CDT 02/20/2024 2:48 PM CDT René Chavez MD LAB - PATHO LOGY/CYTOLOGY ORDERABLES Performing Organization Address City/State/[facility] Co de Phone Number [facility] [address] [place] [address], [facility] [phone] * BONE MARROW BIOPSY (STL) (02/20/2024 9:22 AM CDT) Case Report Bone Marrow Patholog y Report ?Case: [id number] ? Authorizing Provider: ??René Chavez ? Collected: ? 02/20/2024 09:22 AM ? MD Ruben ? Ordering Location: ? [facility] - ??Received: ?02/21/2024 12:46 PM ? Pathology Lab ? Pathologist: ? Cristóbal Khan MD ? Specimens: ?? A) - Bone Marrow Clot ? B) - Bone Marrow Core ? 02/22/2024 10:52 AM [facility] Final Diagnosis Bone marrow, aspirate, clot section, and core biopsy: - Hypercellular marrow with erythroid hyperplasia and myeloid and megakaryocytic atypia, as well as mild involvement by a plasma cell neoplasm (~7% of marrow cellularity). - See description. Peripheral blood smear: - Absolute monocytosis and normocytic anemia. - See description. 02/22/2024 10:52 AM [facility] Comment In addition to the low-level involvement by plasma cell neoplasm, the absolute monocytosis and atypia in the myeloid and megakaryocytic lineage may suggest a myelodysplastic/myelo proliferative neoplasm, specifically a chronic myelomonocytic leukemia. Correlation with cytogenetic and molecular studies (myeloseq) is recommended. Immunohistochemistry is performed to assess staining cells in an architectural context: CD138 highlights ~7% of marrow cellularity as plasma cells. This would not account for the hypercellularity. CD34 and CD117 are negative for increased blasts (<3% of marrow cellularity). P53 is negative. CD61 highlights normal numbers of megakaryocytes. 02/22/2024 10:52 AM [facility] Peripheral Smear Description RBC: normocytic anemia. WBC: increased in number with mature absolute monocytosis, dysgranulopoiesis. Platelets: normal in number. 02/22/2024 10:52 AM [facility] Bone Marrow Aspirate Differential count (200 cells): 1% blasts, 29% maturing myeloid precursors, 53% erythroid progenitors, 4% monocytes, 3% eosinophils, 4% lymphocytes, 6% plasma cells. Specimen quality: adequate. Spicules: numerous. Myeloid:Erythroid ratio: decreased. Myeloid Maturation: left-shifted with abnormal segmentation and granulation. Erythroid Maturation: normal. Megakaryocyte morphology: abnormal lobation Storage iron (by special stain): adequate. Sideroblastic iron (by special stain): no ring sideroblasts. 02/22/2024 10:52 AM [facility] Bone Marrow Core Biopsy and Clot Section Description Specimen quality: adequate with 1.6 cm of evaluable marrow. Cellularity: 60-70% Myeloid to Erythroid ratio: decreased. Myeloid maturation and localization: left-shifted. Erythroid maturation and localization: architectural disarray. Megakaryocyte number: normal. Megakaryocyte distribution: abnormal lobation. Lymphoid aggregates: absent. Bone trabeculae: thin. Plasma cells: increased and cytologically abnormal. Clot section marrow particles: numerous. Clot section morphology: similar to core biopsy. 02/22/2024 10:52 AM [facility] Flow Cytometry Summary Bone marrow, flow cytometry ([id number]): - Abnormal plasma cell population detected (1.5% of overall events) 02/22/2024 10:52 AM [facility] Clinical History MGUS. 02/22/2024 10:52 AM [facility] Materials Received Received are 19 slide and 3 blocks(s) labeled [id number] along with a copy of the outside pathology report. [place] [address] . All original materials are returned to the referring institution, along with a copy of our final report. 02/22/2024 10:52 AM T [facility] Pathologist Location at [facility] 02/22/2024 10:52 AM CDT [facility] Disclaimer The performance characteristics of all immunohistochemical and indirect immunofluorescence stains (if any) cited in this report were determined by the Histopathology Laboratory of [facility]. Some of these tests were developed by our own laboratory and have not been cleared or approved by the US Food and Drug Administration. The FDA does not require this test to go through premarket FDA review. These tests are used for clinical purposes. They should not be regarded as investigational or for research. This laboratory is certified under the Clinical Laboratory Improvement Amendments (CLIA) as qualified to perform high complexity clinical laboratory testing. This case has been personally reviewed and interpreted by the attending (teaching) pathologist. 02/22/2024 10:52 AM CDT [facility] Embedded Images 02/22/2024 10:52 AM CDT [facility] Pathology/Cytology BONE MARROW SPECIMEN / Unknown 02/20/2024 9:22 AM CDT 02/21/2024 12:46 PM CDT Miscellaneous samples (specimen) BONE MARROW SPECIMEN / Unknown 02/20/2024 9:22 AM CDT 02/21/2024 12:46 PM CDT René Chavez MD LAB - PATHO LOGY/CYTOLOGY ORDERABLES Performing Organization Address City/State/[facility] Co de Phone Number [facility] [address] [phone] Care Teams Roof Foreman Relationship Specialty Start Date End Date Billie Blackwood MD [address] [place] [phone] PCP - General 07/20/20
--- OUTSIDE RECORDS SUMMARY | 2024-07-01 00:25 | XMS_ITS | Encounter Summary ---
Author Organization [facility] Address [facility] [place] [address] [place] [address] Care Team Providers Care Human Resources Assistant Name Role Phone Aliza Bain MD Primary Care Provider Nahid Hickman MD Unavailable [phone] Kiel Vasquez MD Unavailable [phone] Reason for Referral * Imaging (Routine) - Closed Specialty Diagnoses / Procedures Referred By Meghana vigil Referred To Contact RADIOLOGY Diagnoses Carotid stenosis, bilateral Procedures USV CAROTID DUPLEX JEFF Jimmy Morris MD [facility]. [place] [address] [place] [address] Phone: tel: fax: Referral ID Status Reason Start Date Expiration Date Visits Re quested Visits Authorized [id number] Closed 11/10/2022 12/11/2023 1 1 Encounter Details Date Type Department Care Team (Late st Contact Info) Description 11/10/2022 Orders Only [facility], [facility] [address] [place] [address] Jimmy Morris MD [facility]. [facility] [address] [place] [address] Social History Tobacco Use Types Packs/Day Years [...] st Contact Info) Description 07/22/2024 11:40 AM PROFESSIONAL SHOPPER Office Visit [facility]pec[facility] Care - [facility] [address] [facility], Suite [facility] [place] [address] Kris Amado MD [address] [place], [place] [address] [address] 10/16/2024 11:00 AM CDT Appointment [facility] [address] [place] [address] Jimmy Morris MD [facility] [address] [address] [place], [place] [address] documented as of this encounter Goals Goal Patient Goal Type Associated Problems Recent Progress Patient-Stated? Author Safety ? Patient/family will have appropriate support at home upon discharge General No Zoila Gan, TUNDE documented as of this encounter Results * USV CAROTID DUPLEX JEFF (10/17/2023 11:24 AM CDT) Anatomical Region Laterality Modality Neck Vascular Ultraso und 10/17/2023 11:0 1 AM CDT Narrative 10/20/2023 6:35 PM CDT ?CAROTID ARTERY DUPLEX IMAGING ? VASCULAR LAB Pat.Name: ??ZEE MARTINEZ ? Pat.ID: ?[id number] ? St.Date: ?? 10/17/2023 ?Exam Time: 11:01:00 [...] CAROTID ARTERY DUPLEX IMAGING VASCULAR LAB Pat.Name: ZEE MARTINEZ Pat.ID: [id number] .Date: 10/17/2023 Exam Time: 11:01:00 AM Study Type:MELLISSA [...] this encounter Visit Diagnoses Diagnosis Carotid stenosis, bilateral- Primary Occlusion and stenosis of multiple and bilateral precerebral arteries without mention of cerebral infarction Carotid stenosis, bilateral Occlusion and stenosis of multiple and bilateral precerebral arteries without mention of cerebral infarction documented in this encounter Care Teams Human Resources Assistant Relationship Specialty Start Date End Date Aliza Bain MD [address] [place] [address] PCP - General FAMILY PRACTICE 05/09/21 Nahid Hickman MD [address] [facility] [address] [place] [address] PCP - ONCOLOGY HEMATOLOGY/ONCOLOGY 10/03/21 Kiel Vasquez MD [address] [facility] [address] [place] [phone] Consulting Physician CARDIOLOGY 10/03/21 documented as of this encounter
--- OUTSIDE RECORDS SUMMARY | 2024-07-01 00:25 | XMS_ITS | CONTINUITY OF CARE DOCUMENT ---
Author Name dixon metcalf Address Unknown Organization [facility] Address [address] [place] [address] [address] [place] [address] Phone [phone] Care Team Providers Care Plant Protection Officer Name Role Phone Alva Dillard MD Unavailable RADHA DE LA CRUZ MD Unavailable [phone] RADHA DE LA CRUZ MD Unavailable INSURANCE PROVIDERS Payer name Policy type / Coverage type [place] red republican ID [facility] [employer] [id number] [place] [employer] Medicare [id number]
--- OUTSIDE RECORDS SUMMARY | 2024-07-01 00:25 | XMS_ITS | Encounter Summary ---
Author Organization [facility] Address [facility] [facility]. [place], [place] [address] [place] [address] Care Team Providers Care Revenue Analyst Name Role Phone Aliza Gtz MD Primary Care Provider Nahid Hickman MD Unavailable [phone] Kiel Vasquez MD Unavailable [phone] Reason for Visit * Reason Comments Carotid Stenosis * Surgical (Routine) - Closed Specialty Diagnoses / Procedures Referred By Meghana t Referred To Contact VASCULAR SURGERY / Cardiology Diagnoses Stenosis of left carotid artery Procedures OFFICE/OUTPT VISIT,NEW,LEVL III OFFICE/OUTPT VISIT,NEW,LEVL IV OFFICE/OUTPT VISIT,NEW,LEVL V OFFICE/OUTPT VISIT,EST,LEVL III OFFICE/OUTPT VISIT,EST,LEVL IV OFFICE/OUTPT VISIT,EST,LEVL V Kris Amado MD [address] [place] [address] Phone: tel: fax: Jimmy Morris MD [facility]. [address] [address] Phone: tel: fax: Referral ID Status Reason Start Date Expiration Date V isits Requested Visits Authorized [id number] Closed Specialty Services 09/28/2022 10/29/2023 99 99 Encounter Details Date Type Department Care Team (Late st Contact Info) Description 11/09/2022 2:00 PM CDT Office Visit [facility] [address] [place] [address] Jimmy Morris MD Three [facility]. [facility] [address] [place], [place] [address] Carotid Stenosis Social History Tobacco Use Types Packs/Day Years [...] PM CDT documented as of this encounter Last Filed Vital Signs Vital Sign Reading Time Taken Comments Blood Pressure 160/72 11/09/2022 2:17 PM CDT Pulse - - Temperature 17.8 ??C (64 ??F) 11/09/2022 2:17 PM CDT Respiratory Rate - - Oxygen Saturation - - Inhaled Oxygen Concentration - - Weight 65.2 kg (143 lb 12.8 oz) 11/09/2022 2:17 PM CDT Height 160 cm (5' 3 ) 11/09/2022 2:17 PM CDT Body Mass Index 25.47 11/09/2022 2:17 PM CDT documented in this encounter Functional Status * [...] Borrero RN Active documented in this encounter Patient Instructions * Attachments The following attachments cannot be sent through Care Everywhere. * Carotid artery disease (Yoruba) documented in this encounter Progress Notes * Jimmy Morris MD - 11/09/2022 2:00 PM CDT Reason for Visit: Carotid stenosis History of Present Illness: This is a 77-year-old female with a history of carotid stenosis. The patient has less than 50% stenosis of the right internal carotid artery and 50 to 69% stenosis of the left internal carotid artery. The patient reports no amaurosis fugax, weakness in the upper and lower extremities or facial drooping. She denies slurred speech, numbness or tingling in the face or extremities. She currently denies dizziness or imbalance. Recommendations and Plan: The patient currently has asymptomatic carotid stenosis. Continue currentmedications. Follow up carotid duplex in one year. Medications: Current Outpatient Medications: methocarbamol (ROBAXIN) 500 MG tablet, Take 1 tablet (500 mg total) by mouth daily., Disp: , Rfl: ACETAMINOPHEN-CODEINE 300-30 MG tablet, Take 1 tablet by mouth 2 (two) times daily as needed., Disp: , Rfl: apixaban 5 MG tablet, Take 1 tablet (5 mg total) by mouth 2 (two) times daily., Disp: , Rfl: aspirin EC (ECOTRIN) 81 MG tablet, Take 1 tablet (81 mg total) by mouth daily., Disp: , Rfl: calcium carbonate-vitamin D (OYSTER SHELL CALCIUM-VITAMIN D) 500-200 MG-UNIT Tab, Take 1 tablet by mouth daily., Disp: , Rfl: clindamycin (CLEOCIN) 300 MG capsule, Take 1 capsule (300 mg total) by mouth every 12 (twelve) hours., Disp: , Rfl: Cyanocobalamin 100 MCG Tab, Take 100 mcg by mouth daily., Disp: , Rfl: dilTIAZem XR (DILACOR XR) 120 MG 24 hr capsule, Take 2 capsules (240 mg total) by mouth daily., Disp: , Rfl: hydroCHLOROthiazide 25 MG tablet, Take 1 tablet (25 mg total) by mouth every morning., Disp: , Rfl: Olmesartan Medoxomil 40 MG Tab, Take 1 tablet (40 mg total) by mouth daily., Disp: , Rfl: pantoprazole EC 40 MG tablet, , Disp: , Rfl: pyridostigmine (MESTINON) 60 MG tablet, Take 1 tablet (60 mg total) by mouth 3 (three) times daily., Disp: 90 tablet, Rfl: 11 TIADYLT ER 120 MG 24 hr capsule, 1 capsule (120 mg total) daily. Indications: haven't started yet, Disp: , Rfl: Review of patient's allergies indicates: Allergen Reactions Penicillins Hives Past Medical History: Diagnosis Date Abrasion Done at 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 Myasthenia gravis (CMS/HCC) Past Surgical History: Procedure Laterality Date ANKLE FRACTURE SURGERY right EYE SURGERY HYSTERECTOMY partial THORACOTOMY,MAJOR,EXPLOR/BIOPSY Right 07/20/2020 Right upper TONSILLECTOMY Social History Tobacco Use Smoking status: Former Packs/day: 0.50 Years: 40.00 Pack years: 20.00 Types: Cigarettes Quit date: 2001 Years since quittin.4 Smokeless tobacco: Never Vaping Use Vaping Use: Never used Substance Use Topics Alcohol use: Yes Comment: occasional use- mixed drinks or wine Drug use: Never Family History Problem Relation Name Age of Onset Hypertension Mother Heart Disease Mother Other (TIA) Mother Hypertension Father Heart Disease Father Family Status Relation Name Status Mother Father Review of Systems Constitutional: Negative. HENT: Positive for headaches. Eyes: Negative. Respiratory: Positive for shortness of breath. Cardiovascular: Negative. Gastrointestinal: Positive for abdominal pain. Genitourinary: Negative. Musculoskeletal: Positive for myalgias. Skin: Negative. Neurological: Positive for dizziness and tingling/numbness. Endo/Heme/Allergies: Negative. Psychiatric/Behavioral: Negative. Vitals: 11/09/22 1417 BP: (!) 160/72 Temp: (!) 64 ??F (17.8 ??C) Weight: 65.2 kg (143 lb 12.8 oz) Height: 5' 3 (1.6 m) Body mass index is 25.47 kg/m??. Cardiac Exam Rate/Rhythm: Normal rate. PMI: Pulses: Carotid pulses are 1+ on the right side and 1+ on the left side. Heart Sounds: Murmurs: Edema left: 0. Edema Right: 0. Physical Exam Constitutional: No distress. HENT: Eyes: Conjunctivae normal. Neck: No JVD. Abdomen: Abdomen soft. Pulmonary: Effort normal. Skin: Dry. Musculoskeletal: Neurological: Alert. Oriented x 3. cranial nerves II through XII intact. Normal motor skills. Comments: Diagnoses/Impression: 1. Bilateral carotid artery stenosis Referring Provider: Kris Amado MD PCP: ALIZA GTZ MD documented in this encounter Plan of Treatment Upcoming Encounters Date Type Department Care Team (Late st Contact Info) Description 07/22/2024 11:40 AM CLEARANCE REP Office Visit [facility] Multispecialty Care - [facility] [address] [facility], [address] [place] [phone] Kris Amado MD [address] [place] [address] 10/16/2024 11:00 AM CDT Appointment [facility] [place] [address] Jimmy Morris MD Three [facility]. [address] [place] [address] documented as of this encounter Goals Goal Patient Goal Type Associated Problems Recent Progress Patient-Stated? Author Safety ? Patient/family will have appropriate support at home upon discharge Zoila Deng, RN documented as of this encounter Visit Diagnoses Diagnosis Bilateral carotid artery stenosis- Primary Occlusion and stenosis of multiple and bilateral precerebral arteries without mention of cerebral infarction documented in this encounter Care Teams Revenue Analyst Relationship Specialty Start Date End Date Aliza Gtz MD [address] [place] [address] PCP - General FAMILY PRACTICE 05/09/21 Nahid Hickman MD [address] [facility] [address] [place] [address] PCP - ONCOLOGY HEMATOLOGY/ONCOLOGY 10/03/21 Kiel Vasquez MD [address] [facility] [address] [facility] [place] [phone] Consulting Physician CARDIOLOGY 10/03/21 documented as of this encounter
--- OUTSIDE RECORDS SUMMARY | 2024-07-01 00:25 | XMS_ITS | Encounter Summary ---
Author Organization [facility] Address [facility] 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, [address] [place] [address] Kris Amado MD [address] [place] [address] 10/16/2024 11:00 AM CDT Appointment [facility] [place] [address] Jimmy Morris MD [address] [facility]. [address] [place] [address] documented as of this encounter Goals Goal Patient Goal Type Associated Problems Recent Progress Patient-Stated? Author Safety ? Patient/family will have appropriate support at home upon discharge General No Zoila Gan, TUNDE documented as of this encounter Visit Diagnoses Not on filedocumented in this encounter Care Teams Vinegar Maker Relationship Specialty Start Date End Date Aliza Bain MD [address] [place] [address] PCP - General FAMILY PRACTICE 05/09/21 Nahid Hickman MD [address] [phone] PCP - ONCOLOGY HEMATOLOGY/ONCOLOGY 10/03/21 Kiel Vasquez MD [address] [facility] [address] [place] [address] Consulting Physician CARDIOLOGY 10/03/21 documented as of this encounter
--- OUTSIDE RECORDS SUMMARY | 2024-07-01 00:25 | XMS_ITS | Encounter Summary ---
Author Organization [facility] Address [facility]6 [facility] [place] [address] [place] [address] Care Team Providers Care Stock Feeder Name Role Phone Aliza Bain MD Primary Care Provider Nahid Hickman MD Unavailable [phone] Kiel Vasquez MD Unavailable [phone] Reason for Visit * Reason Comments EMG Testing ARMIN*MUSCLE WEAKNESS OF ALL 4 EXTREMITIES * Procedure (Routine) - Closed Specialty Diagnoses / Procedures Referred By Meghana vigil Referred To Contact Diagnoses Muscle weakness of all 4 extremities Procedures EMG Rhonda Modi NP Govindarajan, Raghav, MD [address] [place] [address] Phone: tel: fax: Referral ID Status Reason Start Date Expiration Date V isits Requested Visits Authorized [id number] Closed Office Procedure 08/06/2023 08/06/2024 1 1 Encounter Details Date Type Department Care Team (Latest Contact Info) Description 09/04/2023 9:00 AM CDT Office Visit [facility]ty [facility] - [facility] [address] [facility], [address] [place] [id number] Kris Amado MD [address] [place] [address] EMG Testing (ARMIN*MUSCLE WEAKNESS OF ALL 4 EXTREMITIES) Social History Tobacco Use Types Packs/Day Years [...] documented in this encounter Progress Notes * Kris Amado MD - 09/04/2023 9:00 AM CDT EMG documented in this encounter Procedure Notes * Kris Amado MD - 09/04/2023 9:00 AM CDTAssociated Order(s): EMG For sensory nerve conduction studies, the amplitude is measured [id number]-brtz, the latency reported is the distal peak latency, and the conduction velocity, if measured, is determined from onset latencies and is over the limb. For motor nerve conduction studies, the amplitude is measured hrrovqlf-[id number]-idxc, the latency reported is the distal onset [...] more than L5 radiculopathy on the left. 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 documented in this encounter Plan of Treatment Upcoming Encounters Date Type Department Care Team (Late st Contact Info) Description 07/22/2024 11:40 AM ARTISAN PLASTERER Office Visit [facility] - [facility] [address] [facility], [address] [place] [address] Kris Amado MD 3 [facility] [place] [address] 10/16/2024 11:00 AM CDT Appointment [facility] ONE [facility] [place] [address] Jimmy Morris MD Three [facility]. [address] [place], [place] [id number] Scheduled Orders Name Type Priority Associated Diagnoses Orde r Schedule NERVE CONDUCTION, 12 STUDIES Procedures Routine Muscle weakness of all 4 extremities Ordered: 09/04/2023 COMPLETE FIVE OR MORE MUSCLES STUDIED INNERVATED Procedures Routine Muscle weakness of all 4 extremities Ordered: 09/04/2023 documented as of this encounter Goals Goal Patient Goal Type Associated Problems Recent Progress Patient-Stated? Author Safety ? Patient/family will have appropriate support at home upon discharge Zoila Deng RN documented as of this encounter Procedures Procedure Name Priority Date/Time Associated Diagnosis Comments EMG Routine 09/04/2023 9:00 AM CDT Muscle weakness of all 4 extremities documented in this encounter Results * EMG (09/04/2023 9:00 AM CDT) Narrative [facility] - 09/04/2023 9:00 AM CDT Kris Amado MD ? 09/04/2023 10:35 AM For sensory nerve conduction studies, the amplitude is measured qqpw-kt-rhin, the latency reported is the distal peak latency, and the conduction velocity, if measured, is determined from onset latencies and is over the limb. For motor nerve conduction studies, the amplitude is measured pudzfqcu-sl-hgeh, the latency reported is the distal onset [...] left ulnar mononeuropathy at the wrist. ?? Rhonda Modi NP NEUROLOGY ORDERABLES Sirena l Result [facility] [address] [place] [id number], documented in this encounter Visit Diagnoses Diagnosis Muscle weakness of all 4 extremities documented in this encounter Care Teams Stock Feeder Relationship Specialty Start Date End Date Aliza Bain MD [address] [place] [address] PCP - General FAMILY PRACTICE 05/09/21 Nahid Hickman MD [address] [facility] [address] [place] [address] PCP - ONCOLOGY HEMATOLOGY/ONCOLOGY 10/03/21 Kiel Vasquez MD [address] [facility] [address] [place] [phone] Consulting Physician CARDIOLOGY 10/03/21 documented as of this encounter
--- OUTSIDE RECORDS SUMMARY | 2024-07-01 00:25 | XMS_ITS | Encounter Summary ---
Author Organization [facility] Address [facility]6 [facility]. [place], [place] [address] [place] [address] Care Team Providers Care Mallet Cutter Name Role Phone Aliza Bani MD Primary Care Provider Nahid Hickman MD Unavailable [phone] Kiel Vasquez MD Unavailable [phone] Reason for Referral * Surgical (Routine) - Closed Specialty Diagnoses / Procedures Referred By Meghana vigil Referred To Contact VASCULAR SURGERY / Cardiology Diagnoses Stenosis of left carotid artery Procedures OFFICE/OUTPT VISIT,NEW,LEVL III OFFICE/OUTPT VISIT,NEW,LEVL IV OFFICE/OUTPT VISIT,NEW,LEVL V OFFICE/OUTPT VISIT,EST,LEVL III OFFICE/OUTPT VISIT,EST,LEVL IV OFFICE/OUTPT VISIT,EST,LEVL V Kris Amado MD [address] [place] [address] Phone: tel: fax: Jimmy Morris MD [facility]. [facility] [address] [place] [address] Phone: tel: fax: Referral ID Status Reason Start Date Expiration Date V isits Requested Visits Authorized [id number] Closed Specialty Services 09/28/2022 10/29/2023 99 99 Encounter Details Date Type Department Care Team (Late st Contact Info) Description 09/28/2022 Orders Only [facility] - [facility] [address] [facility], [address] [place] [phone] Kris Amado MD 3 [place] [address] Social History Tobacco Use Types Packs/Day Years Used Date Smoking Tobacco: Former Cigarettes 0.5 40 1 962 - 2001 Smokeless Tobacco: Never Alcohol Use Standard Drinks/Week [...] st Contact Info) Description 07/22/2024 11:40 AM 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 [address] [place] [address] Scheduled Referrals Name Type Priority Associated Diagnoses Orde r Schedule Ambulatory referral to Vascular Surgery ([facility]) Referral Routine Stenosis of left carotid artery Ordered: 09/28/2022 documented as of this encounter Goals Goal Patient Goal Type Associated Problems Recent Progress Patient-Stated? Author Safety ? Patient/family will have appropriate support at home upon discharge General No Zoila Gan, TUNDE documented as of this encounter Visit Diagnoses Diagnosis Stenosis of left carotid artery- Primary Occlusion and stenosis of carotid artery without mention of cerebral infarction documented in this encounter Care Teams Mallet Cutter Relationship Specialty Start Date End Date Aliza Bain MD [address] [place] [address] PCP - General FAMILY PRACTICE 05/09/21 Nahid Hickman MD [address] [facility] [address] [place] [address] PCP - ONCOLOGY HEMATOLOGY/ONCOLOGY 10/03/21 Kiel Vasquez MD [address] [facility] [address] [place] [address] Consulting Physician CARDIOLOGY 10/03/21 documented as of this encounter
--- OUTSIDE RECORDS SUMMARY | 2024-07-01 00:25 | XMS_ITS | Encounter Summary ---
Author Organization [facility] Address [facility] 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 [address] [place] [address] documented as of this encounter Goals Goal Patient Goal Type Associated Problems Recent Progress Patient-Stated? Author Safety ? Patient/family will have appropriate support at home upon discharge General No Zoila Gan, TUNDE documented as of this encounter Visit Diagnoses Not on filedocumented in this encounter Care Teams Newspaper Deliverer Relationship Specialty Start Date End Date Aliza Bain MD [address] [place] [address] PCP - General FAMILY PRACTICE 05/09/21 Nahid Hickman MD [address] [phone] PCP - ONCOLOGY HEMATOLOGY/ONCOLOGY 10/03/21 Kiel Vasquez MD [address] [facility] [address] [place] [address] Consulting Physician CARDIOLOGY 10/03/21 documented as of this encounter
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
--- OUTSIDE RECORDS SUMMARY | 2024-07-01 00:25 | XMS_ITS | Clinical Summary ---
Author Organization [facility] Address [facility] [place] [address] [place] [address] Care Team Providers Care Cadmium Liquor Maker Name Role Phone Aliza Bain MD Primary Care Provider Nahid Hickman MD Unavailable [phone] Kiel Vasquez MD Unavailable [phone] Allergies Active Allergy Reactions Criticality Noted Date Comments Penicillins Hives High 07/29/2020 Medications calcium carbonate-vitam in D (OYSTER SHELL CALCIUM-VITAMIN D) 500-200 MG-UNIT Tab Take 1 tablet by mouth daily. Active Cyanocobalamin 100 MCG Tab Take 100 mcg by mouth daily. Active Olmesartan Medoxomil 40 MG Tab Take 1 tablet (40 mg total) by mouth daily. Active hydroCHLOROthia zide 25 MG tablet Take 1 tablet (25 mg total) by mouth every morning. 04/07/2021 Active aspirin EC (ECOTRIN) 81 MG tablet Take 1 tablet (81 mg total) by mouth daily. Active apixaban 5 MG tablet Take 1 tablet (5 mg total) by mouth 2 (two) times daily. 03/31/2021 Active pantoprazole EC 40 MG tablet 10/12/2021 Active TIADYLT ER 120 MG 24 hr capsuleIndicati ons:haven't started yet 1 capsule (120 mg total) daily. Indications: haven't started yet 10/14/2021 Active dilTIAZem XR (DILACOR XR) 120 MG 24 hr capsule Take 2 capsules (240 mg total) by mouth daily. 11/07/2021 Active clindamycin (CLEOCIN) 300 MG capsule Take 1 capsule (300 mg total) by mouth every 12 (twelve) hours. 12/26/2021 Active ACETAMINOPHEN-C ODEINE 300-30 MG tablet Take 1 tablet by mouth 2 (two) times daily as needed. 08/03/2022 Active methocarbamol (ROBAXIN) 500 MG tablet Take 1 tablet (500 mg total) by mouth daily. 10/11/2022 Active pyridostigmine (MESTINON) 60 MG tabletIndicatio ns:Myasthenia gravis ([facility]) Take 1 tablet (60 mg total) by mouth 3 (three) times daily. 90 tablet 11 08/07/2023 Active Active Problems Problem Noted Date Diagnosed Date Bilateral carotid artery stenosis 11/12/2022 Exertional shortness of breath 11/09/2022 Chronic diastolic congestive heart failure ([facility]) 12/15/2021 Spontaneous rupture of spleen 10/03/2021 New onset atrial fibrillation ([facility]) 05/09/2021 MGUS (monoclonal gammopathy of unknown significa nce) 03/15/2021 Carotid artery disease 10/01/2020 Benign hypertension 10/01/2020 Non-small cell cancer of right lung ([facility]) 08/13/2020 Normocytic normochromic anemia 04/18/2016 Lumbago 12/05/2012 Pain in extremity 12/05/2012 Myasthenia gravis ([facility]) Paroxysmal atrial fibrillation ([facility]) HTN (hypertension) Immunizations Name Administration Dates Next Due Fluzone High Dose - >Age 65 (Prefilled Syringe) 04/07/2021,04/26/2017 Hib (Acthib) 4 Dose 10/04/2021 Influenza Adult (Generic) 03/17/2018 MENINGOCOCCAL A C Y&W-135 oligosaccharide (MENVE O) 10/04/2021 Meningcoccal Group B (Bexsero)(aka Meningitis) 0 10/04/2021 Pneumococcal (Pneumovax 23) 04/07/2021 Pneumococcal (Prevnar 13) 10/04/2021 Zoster (Zostavax) 19241 Unt/0.65Ml 05/26/2016 Family History Medical History Relation Comments Heart Disease Father Hypertension Father Heart Disease Mother Hypertension Mother TIA Mother Relation Status Comments Father Mother Social History Tobacco Use Types Packs/Day Years Used Date Smoking Tobacco: Former Cigarettes 0.5 40 1 962 - 2002 Passive Smoke Exposure: Never Smokeless Tobacco: Never Tobacco Cessation:Counseling Given: No Alcohol Use Standard Drinks/Week Comments Yes 0 (1 standard drink = 0.6 oz pure alcohol) occasional use- mixed drinks or wine PHQ-2 Answer Date Recorded Patient Health Questionnaire-2 Score 0 01/04/2023 Comments No Sex and Gender Information Value Date Recorded Sex Assigned at Not on file Legal Sex Female 6:29 PM CDT Gender Identity Not on file Sexual Orientation Not on file Last Filed Vital Signs Vital Sign Reading Time Taken Comments Blood Pressure 149/54 08/06/2023 10:38 AM PRODUCTION CONTROL COORDINATING CLERK Pulse 61 08/06/2023 10:38 AM PRODUCTION CONTROL COORDINATING CLERK Temperature 36.6 ??C (97.9 ??F) 08/06/2023 10:[address] Respiratory Rate 18 10/18/2021 1:47 PM CDT Oxygen Saturation 100% 08/06/2023 10:38 AM PRODUCTION CONTROL COORDINATING CLERK Inhaled Oxygen Concentration - - Weight 64 kg (141 lb) 08/06/2023 10:38 AM PRODUCTION CONTROL COORDINATING CLERK Height 160 cm (5' 3 ) 08/06/2023 10:38 AM PRODUCTION CONTROL COORDINATING CLERK Body Mass Index 24.98 08/06/2023 10:38 AM PRODUCTION CONTROL COORDINATING CLERK Plan of Treatment Upcoming Encounters Date Type Department Care Team (Late st Contact Info) Description 07/22/2024 11:40 AM PRODUCTION CONTROL COORDINATING CLERK Office Visit [facility] Medical [facility] Multispecialty Care - [facility] [address] [facility], [address] [place] [id number] Kris Amado MD [address] [place] [address] 10/16/2024 11:00 AM CDT Appointment [facility] Vascular Lab [address] [place], [place] [address] Jimmy Morris MD Three [facility]. [address] [place], [place] [id number] Health Maintenance Due Date Last Done Comments Hepatitis C 1963 DTaP, Tdap and Td Vaccines ( 1 - Tdap) 1964 Annual Medicare Wellness Visit 2009 Dexa Scan (General) 2009 Zoster Vaccines (2 of 3) 07/21/2016 05/26/2016 RSV Immunization or 60+ Years (1 - 1-dose 75+ series) 2019 COVID-19 Vaccine (1 - 2023-2 5 season) 2024 Influenza Adult (#1) 2024 04/07/2021, 03/17/2018, 04/26/2017 Meningococcal Vaccine Aged Out 10/04/2021 No marianela antonia eligible based on patient's age to complete this topic Pneumococcal Vaccine: 65+ Years Completed 10/04/2021, 04/07/2021 RSV Immunizations Under 20 Months Aged Out No longer eligible b ased on patient's age to complete this topic Goals Goal Patient Goal Type Associated Problems Recent Progress Patient-Stated? Author Safety ? Patient/family will have appropriate support at home upon discharge General No Zoila Gan, TUNDE Insurance [address] [place] [address] [employer] Advance Directives * Full Code (Latest Code Status on File) Date Activated Date Inactivated Comments 10/03/2021 9:15 AM 10/10/2021 1:30 PM * Full Code Date Activated Date Inactivated Comments 10/03/2021 4:15 AM 10/03/2021 9:15 AM Care Teams Cadmium Liquor Maker Relationship Specialty Start Date End Date Aliza Bain MD [address] [place] [address] PCP - General FAMILY PRACTICE 05/09/21 Nahid Hickman MD [address] [facility] [address] [place] [address] PCP - ONCOLOGY HEMATOLOGY/ONCOLOGY 10/03/21 Kiel Vasquez MD [address] [facility] [address] [place] [address] Consulting Physician CARDIOLOGY 10/03/21
--- OUTSIDE RECORDS SUMMARY | 2024-07-01 00:25 | XMS_ITS | Encounter Summary ---
Author Organization [facility] - [facility] Address [facility] [place] [address] [place] [address] Care Team Providers Care Aerospace Assembler Name Role Phone Aliza Bain MD Primary Care Provider Nahid Hickman MD Unavailable Kiel Vasquez MD Unavailable [phone] Reason for Visit * Reason Comments Follow Up * Consultation/Treatment (Routine) - Closed Specialty Diagnoses / Procedures Referred By Contact Referred To Contact NEUROMUSCULOSKELETAL MEDICIN E / NEUROLOGY Diagnoses follow up Aliza Bain MD [address] [facility] [address] [place] [address] Phone: tel: fax: Kris Amado MD [address] [place] [address] Phone: tel:[phone] fax:[phone] Referral ID Status Reason Start Date Expiration Date V isits Requested Visits Authorized [id number] Closed Specialty Services 08/29/2022 09/30/2023 100 100 Encounter Details Date Type Department Care Team (Late st Contact Info) Description 01/04/2023 11:00 AM CDT Office Visit [facility] Medical Group Multispecialty Care - [address], [address] [place] [phone] Rhonda Modi NP Follow Up Social History Tobacco Use Types Packs/Day Years [...] Sign Reading Time Taken Comments Blood Pressure 133/71 01/04/2023 10:59 AM CDT Pulse 51 01/04/2023 10:59 AM CDT Temperature 36.1 ??C (97 ??F) 01/04/2023 10:59 AM CDT Respiratory Rate - - Oxygen Saturation 100% 01/04/2023 10:59 AM CDT Inhaled Oxygen Concentration - - Weight 64.6 kg (142 lb 6.4 oz) 01/04/2023 10:59 AM CDT Height 160 cm (5' 3 ) 01/04/2023 10:59 AM CDT Body Mass Index 25.23 01/04/2023 10:59 AM CDT documented in this encounter Functional Status [...] this encounter Progress Notes * Rhonda Modi, INSTRUCTOR WEAVING - 01/04/2023 11:00 AM CDT Chief Complaint: Follow up MG HPI: The patient is a 77 year old female here for a follow up appointment. She was last seen in clinic on 08/29/[address] Nguyen and reported fatigue and weakness in her upper and lower limbs. She was started on pyridostigmine 60 mg TID. She says that she is taking this twice a day and three times per day when she remembers. She reports that she is doing well on this medication and has not had any side effects. She still has weakness in her limbs but says that it has improved. She has been taking OTC magnesium for leg cramps and says that it has helped significantly. She does not have any new concerns. She denies any balance issues or falls. She denies any changes in her hearing. She denies any blurred vision or confusion. She is following with Dr. Morris for carotid stenosis. She has a history of HTN, Afib s/p ablation (on Eliquis), arthritis, Myasthenia Gravis, s/p blepharoplasty, lung cancer s/p RUL lobectomy, s/p blepharoplasty, carotid stenosis, and MGUS. She is following with cardiology and hematology. She has PET scans every 6 months. Previous Medications: Hypertension: 133/71 Current Outpatient Medications Medication Sig Dispense Refill ??? ACETAMINOPHEN-CODEINE 300-30 MG tablet Take 1 tablet by mouth 2 (two) times daily as needed. ??? apixaban 5 MG tablet Take 1 tablet (5 mg total) by mouth 2 (two) times daily. ??? aspirin EC (ECOTRIN) 81 MG tablet Take 1 tablet (81 mg total) by mouth daily. ??? calcium carbonate-vitamin D (OYSTER SHELL CALCIUM-VITAMIN D) 500-200 MG-UNIT Tab Take 1 tablet by mouth daily. ??? clindamycin (CLEOCIN) 300 MG capsule Take 1 capsule (300 mg total) by mouth every 12 (twelve) hours. ??? Cyanocobalamin 100 MCG Tab Take 100 mcg by mouth daily. ??? dilTIAZem XR (DILACOR XR) 120 MG 24 hr capsule Take 2 capsules (240 mg total) by mouth daily. ??? hydroCHLOROthiazide 25 MG tablet Take 1 tablet (25 mg total) by mouth every morning. ??? methocarbamol (ROBAXIN) 500 MG tablet Take 1 tablet (500 mg total) by mouth daily. ??? Olmesartan Medoxomil 40 MG Tab Take 1 tablet (40 mg total) by mouth daily. ??? pantoprazole EC 40 MG tablet ??? pyridostigmine (MESTINON) 60 MG tablet Take 1 tablet (60 mg total) by mouth 3 (three) times daily. 90 tablet 11 ??? TIADYLT ER 120 MG 24 hr capsule 1 capsule (120 mg total) daily. Indications: haven't started yet No current facility-administered medications for this visit. Filed Vitals: 01/04/23 1059 BP: 133/71 Pulse: (!) 51 Temp: 97 ??F (36.1 ??C) TempSrc: Temporal SpO2: 100% Weight: 64.6 kg (142 lb 6.4 oz) Height: 5' 3 (1.6 m) Past Medical History: Diagnosis Date ??? Abrasion Done at [facility] ??? Anticoagulated ??? Atrial fibrillation (CMS/HCC) ??? Chronic back pain ??? GERD (gastroesophageal reflux disease) ??? HTN (hypertension) ??? 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 Myasthenia gravis (CMS/HCC) Past Surgical History: Procedure Laterality Date ??? [...] Types: Cigarettes Quit date: 2001 Years since quittin.5 Passive exposure: Never ??? Smokeless tobacco: Never Vaping Use ??? Vaping Use: Never used Substance Use Topics ??? Alcohol use: Yes Comment: occasional use- mixed drinks or wine ??? Drug use: Never REVIEW OF SYSTEMS: Review of Systems Constitutional: Negative for fever. HENT: Negative for hearing loss. Eyes: Negative for blurred vision. Respiratory: Negative for shortness of breath. Cardiovascular: Negative for chest pain. Gastrointestinal: Positive for constipation and diarrhea. Negative for abdominal pain. Musculoskeletal: Negative for back pain, falls and neck pain. Neurological: Positive for weakness. Negative for dizziness. SEE HPI Psychiatric/Behavioral: Negative for memory loss. The patient does not have insomnia. MENTAL STATUS: Patient was alert, awake and oriented x3, regards and follows commands. Normal language. CRANIAL NERVES: II: Right pupil is 2 mm, Left pupil is 3 mm. Both are round and reactive to light and accomodation. III, IV, : normal extraocular movements, no nystagmus. Right eyelid ptosis. V: Normal jaw closure and opening. VII: face was symmetric. Eye closure and lip closure were normal. VIII: hearing was normal. IX-X: palate elevates at midline. XI: normal symmetric shoulder shrug. Normal 5/5 sternocleidomastoid strength. XII: tongue was midline and strong. No fasciculations. MOTOR: Normal strength 5/5 on MRC scale in the upper and lower extremities. Normal muscle tone. SENSATION: Normal and symmetric to temperature and light touch on upper and lower extremities. GAIT: Normal stride and base. REFLEXES: Normal 2+/4 in upper and lower extremities. Impression and Plan: To summarize, the patient is here for a follow up for fatigue and limb weakness. She was started onPyridostigmine 60 mg TID on her last visit in August and reports that she is doing well. She still has weakness in her limbs but says it has improved. She started taking OTC magnesium supplements for the muscle cramps in her legs and says that it has helped. She does not have any new concerns. Thereis some mild R eye ptosis on exam. She is s/p blepharoplasty. I noted a slight difference in pupil size (R- 2 mm, L- 3 mm), which is likely a benign finding. We will continue pyridostigmine 60 mg TID. Follow up in 6 months unless symptoms change. PLAN: -Continue pyridostigmine 60 mg TID -Continue OTC magnesium for leg cramps -Follow up in 6 months Time spent: 20 total minutes reviewing records, history that was separately obtained, performing the exam, providing education to the patient/caregiver, ordering medicine and documenting in the medical record. Rhonda Modi NP documented in this encounter Plan of Treatment Upcoming Encounters Date Type Department Care Team (Late st Contact Info) Description 07/22/2024 11:40 AM MANAGEMENT DEVELOPER Office Visit [facility] Medical Group Multispecialty Care - [facility] [address] [facility], [address] [place] [address] Kris Amado MD [address] [place] [address] 10/16/2024 11:00 AM CDT Appointment [facility] [place] [address] Jimmy Morris MD Three [facility]. [address] [place] [address] documented as of this encounter Goals Goal Patient Goal Type Associated Problems Recent Progress Patient-Stated? Author Safety ? Patient/family will have appropriate support at home upon discharge Zoila Deng, TUNDE documented as of this encounter Visit Diagnoses Diagnosis Muscle weakness of all 4 extremities- Primary Myasthenia gravis ([facility]) Myasthenia gravis without exacerbation documented in this encounter Care Teams Aerospace Assembler Relationship Specialty Start Date End Date Aliza Bain MD [address] [place] [address] PCP - General FAMILY PRACTICE 05/09/21 Nahid Hickman MD [address] [address] PCP - ONCOLOGY HEMATOLOGY/ONCOLOGY 10/03/21 Kiel Vasquez MD [address] [facility] [address] [place] [address] Consulting Physician CARDIOLOGY 10/03/21 documented as of this encounter
--- OUTSIDE RECORDS SUMMARY | 2024-07-01 00:25 | XMS_ITS | Encounter Summary ---
Author Organization [facility] Address [facility]6 [facility] [place] [address] [place] [address] Care Team Providers Care Deposition Operator Name Role Phone Aliza Bain MD Primary Care Provider Nahid Hickman MD Unavailable [phone] Kiel Vasquez MD Unavailable [phone] Reason for Referral * Imaging (Routine) - Pending Review Specialty Diagnoses / Procedures Referred By Meghana vigil Referred To Contact RADIOLOGY Diagnoses Carotid stenosis, bilateral Procedures USV CAROTID DUPLEX JEFF Jimmy Morris MD [facility]. [facility] [address] [place] [address] Phone: tel: fax: Referral ID Status Reason Start Date Expiration Date V isits Requested Visits Authorized [id number] Pending Review 10/23/2023 11/22/2024 1 1 Encounter Details Date Type Department Care Team (Late st Contact Info) Description 10/23/2023 Orders Only [facility] [address] [place] [address] Jimmy Morris MD [facility]. [facility] [address] [place] [address] Social History Tobacco Use Types [...] Assessment Author Status No 10/03/2021 4:00 PM TAMYT Rupa Rodriguez RN Active * Do you [...] Borrero RN Active documented in this encounter Plan of Treatment Upcoming Encounters Date Type Department Care Team (Late st Contact Info) Description 07/22/2024 11:40 AM SENIOR LOSS CONTROL SPECIALIST Office Visit [facility] Medical Group Multispecialty Care - [facility] [address] [facility], [address] [place] [phone] Kris Amado MD [address] [place] [address] 10/16/2024 11:00 AM CDT Appointment [facility] [address] [facility], [place] [address] Jimmy Morris MD Three [facility]. [address] [place] [address] Scheduled Orders Name Type Priority Associated Diagnoses Orde r Schedule USV CAROTID DUPLEX JEFF US VASC Routine Carotid stenosis, bilateral Expected: 10/23/2023, Expires: 10/22/2024 documented as of this encounter Goals Goal Patient Goal Type Associated Problems Recent Progress Patient-Stated? Author Safety ? Patient/family will have appropriate support at home upon discharge Zoila Deng, RN documented as of this encounter Visit Diagnoses Diagnosis Carotid stenosis, bilateral- Primary Occlusion and stenosis of multiple and bilateral precerebral arteries without mention of cerebral infarction documented in this encounter Care Teams Deposition Operator Relationship Specialty Start Date End Date Aliza Bain MD [address] [place] [address] PCP - General FAMILY PRACTICE 05/09/21 Nahid Hickman MD [facility] [facility] [address] [place] [address] PCP - ONCOLOGY HEMATOLOGY/ONCOLOGY 10/03/21 Kiel Vasquez MD [address] [facility] [address] [place] [address] Consulting Physician CARDIOLOGY 10/03/21 documented as of this encounter
--- OUTSIDE RECORDS SUMMARY | 2024-07-01 00:25 | XMS_ITS | Encounter Summary ---
Author Organization [facility] Address [address] [facility] [place] [address] Care Team Providers Care Book Sorter Name Role Phone Billie Blackwood MD Primary Care Provider Encounter Details Date Type Department Care Team (Late st Contact Info) Description 02/21/2024 Lab Requisition [facility] - Pathology Lab [address] [place] [address] René Chavez MD [address] [facility] [address] [place] [address] Illness, unspecified Social History Tobacco Use Types Packs/Day Years Used Date Smoking Tobacco: Never Assessed Sex and Gender Information Value Date Recorded Sex Assigned at Not on file Gender Identity Not on file Sexual Orientation Not on file documented as of this encounter Plan of Treatment Not on file documented as of this encounter Procedures Procedure Name Priority Date/Time Associated Diagnosis Comments BONE MARROW BIOPSY (STL) Routine 02/20/2024 9:22 AM CDT Illness, unspecified documented in this encounter Results * BONE MARROW BIOPSY (STL) (02/20/2024 9:22 AM CDT) Case Report Bone Marrow Patholog y Report ?Case: [id number] ? Authorizing Provider: ??Scott, René ? Collected: ? 02/20/2024 09:22 AM ? Ruben, ? Ordering Location: ? [facility] - ??Received: ?02/21/2024 12:46 PM ? Pathology Lab ? Pathologist: ? Bill, Cristóbal H, MD ? Specimens: ?? A) - Bone Marrow Clot ? B) - Bone Marrow Core ? 02/22/2024 10:52 AM [facility] Final Diagnosis Bone marrow, aspirate, clot section, and core biopsy: - Hypercellular marrow with erythroid hyperplasia and myeloid and megakaryocytic atypia, as well as mild involvement by a plasma cell neoplasm (~7% of marrow cellularity). - See description. Peripheral blood smear: - Absolute monocytosis and normocytic anemia. - See description. 02/22/2024 10:52 AM [facility] Comment In addition to the [...] normal numbers of megakaryocytes. 02/22/2024 10:52 AM [facility] Peripheral Smear Description RBC: normocytic anemia. WBC: increased in number with mature absolute monocytosis, dysgranulopoiesis. Platelets: normal in number. 02/22/2024 10:52 AM [facility] Bone Marrow Aspirate Differential count [...] stain): no ring sideroblasts. 02/22/2024 10:52 AM [facility] Bone Marrow Core Biopsy and [...] similar to core biopsy. 02/22/2024 10:52 AM [facility] Flow Cytometry Summary Bone marrow, flow cytometry ([id number]): - Abnormal plasma cell population detected (1.5% of overall events) 02/22/2024 10:52 AM [facility] Clinical History MGUS. 02/22/2024 10:52 AM [facility] Materials Received Received are 19 slide and 3 blocks(s) labeled [id number] along with a copy of the outside pathology report. The [place] [address] . All original materials are returned to the referring institution, along with a copy of our final report. 02/22/2024 10:52 AM [facility] Pathologist Location at [facility] 02/22/2024 10:52 AM [facility] Disclaimer The performance characteristics of all immunohistochemical and indirect immunofluorescence stains (if any) cited in this report were determined by the Histopathology Laboratory of [facility]. Some of these tests were developed [...] the attending (teaching) pathologist. 02/22/2024 10:52 AM [facility] Embedded Images 02/22/2024 10:52 AM [facility] Pathology/Cytology BONE MARROW SPECIMEN / Unknown 02/20/2024 9:22 AM CDT 02/21/2024 12:46 PM CDT Miscellaneous samples (specimen) BONE MARROW SPECIMEN / Unknown 02/20/2024 9:22 AM CDT 02/21/2024 12:46 PM CDT René Chavez MD LAB - PATHO LOGY/CYTOLOGY ORDERABLES [facility] [address] [facility]. [address] [phone] documented in this encounter Visit Diagnoses Diagnosis Illness, unspecified documented in this encounter Care Teams Book Sorter Relationship Specialty Start Date End Date Billie Blackwood MD [address] [place] [phone] PCP - General 07/20/20 documented as of this encounter
--- OUTSIDE RECORDS SUMMARY | 2024-07-01 00:25 | XMS_ITS | Referral Summary ---
Author Organization [facility] Address [address] [place] [address] Care Team Providers Care Outdoor Advertising Leasing Agent Name Role Phone Billie Blackwood MD Primary Care Provider Source Comments [facility],non-owned Affiliates and Associated Physician Practices is amultiple site organization consisting of ambulatory clinics and hospital sitesin [place], [place], [place] and [place]. This disclosure is being madepursuant to the Care Everywhere program and may not contain all information available regarding this patient. Last updated 18.[facility] Medical Devices Allergies No known active allergies Medications Be [...] Orientation Not on file Plan of Treatment Not on file Care Teams Outdoor Advertising Leasing Agent Relationship Specialty Start Date End Date Billie Blackwood MD [address] [place] [phone] PCP - General 07/20/20
--- OUTSIDE RECORDS SUMMARY | 2024-07-01 00:26 | XMS_ITS | Encounter Summary ---
Author Organization [facility] Address [facility] [place] [address] [place] [address] Care Team Providers Care Engraver Letter Name Role Phone Aliza Bain MD Primary Care Provider Nahid Hickman MD Unavailable [phone] Kiel Vasquez MD Unavailable [phone] Reason for Visit * Auth/Cert Specialty Diagnoses / Procedures Referred By Meghana vigil Referred To Contact Diagnoses Spontaneous rupture of spleen Splenic laceration SPLENIC LACERATION Spontaneous rupture of spleen Procedures GENERAL Referral ID Status Reason Start Date Expiration Date Visits Re quested Visits Authorized [id number] 1 1 Encounter Details Date Type Department Care Team (Late st Contact Info) Description 10/03/2021 5:28 AM CDT Anesthesia Event [facility] [address] [place] [address] Braxton Mabry MD [address] [place] [address] Mera To CRNA [address] [place] [id number] Anesthesia Record Procedure Summary Procedure Name Responsible Anesthesiologist Anesthesia Start Time Anesthesia Stop Time LAPAROTOMY EXPLORATORY, SPLEENECTOMY, RIGHT RADIAL ARTERIAL LINE PLACEMENT (Abdomen) Braxton Mabry MD 10/03/21 0528 10/03/21 0845 Events Date Time Event Comment 10/03/2021 0528 An Start Patient ID and consent checked and patient reassessed. 0530 0530 AN Anesthesia Prepped 0532 An Start Data 0537 Preoxygenation 0600 An Induction The patient was reevaluated immediately before moderate or deep sedation use and before anesthesia induction. 0601 An Intubation 0602 Quick Note Right radial ar terial line placed by Dr. Finley in OR. 0607 Anesthesia Ready 06 Quick Note Accu check 146m g/dl- d/w Dr. Dennis 0635 Quick Note Arterial Blood gas: PH 7.45 PCO2 33.3 PO2 258 BE-1 HCO3 22.9 TCO2 24 SO2 100 Na 141 K 4.3 ICa 1.07 HCT 17 D/W Dr. Dennis [address] Finley s tates- spleen is out. 0714 Quick Note Arterial blood gas: PH: 7.42 PCO2 35.4 PO2 291 BE -2 HCO3 223.0 TCO2 24 SO2 100 Na 140 K 4.4 ICa 1.03 HCT 17 0832 an stop data 0832 Quick Note To ICU per ICU bed with portable EKG, Art BP and Pulse ox; Ventilated per AMBU bag with O2 at 15 L/min 0845 Post Anesthetic Care Handoff I completed my handoff to the receiving nurse during which we: 1. Identified the patient 2. Identified the responsible provider 3. Reviewed the pertinent medical history 4. Discussed the surgical course 5. Reviewed intra-op anesthesia management and issues during anesthesia 6. Set expectations for post-procedure period 7. Allowed opportunity for questions and acknowledgement of understanding. 0845 An Stop Meds Name Total fentaNYL (SUBLIMAZE) 100 mcg/2 mL inject ion 200 mcg lidocaine (PF) (XYLOCAINE) 1% injection 100 mg propofol (DIPRIVAN) 200 mg/20 mL injecti on 130 mg rocuronium (ZEMURON) 50 mg/5 mL injectio n 100 mg phenylephrine (LAURA-SYNEPHRINE) 1 mg/10 m L IV premix syringe 200 mcg phenylephrine (LAURA-SYNEPHRIN E) 10 mg in sodium chloride 0.9 % 250 mL infusion 60 mcg sugammadex (BRIDION) 200 mg/2 mL injecti on 200 mg clindamycin (CLEOCIN) 900 mg in D5W 50 m L IVPB 900 mg calcium chloride 10 % injection 1 g ketamine 50 mg/mL injection 20 mg dexmedetomidine (PRECEDEX) 400 mcg in so dium chloride 0.9 % 100 mL infusion 25.68 mcg oxymetazoline (AFRIN) 0.05% nasal spray 2 spray sodium chloride 0.9% infusion 800 mL lactated ringers infusion 1,000 mL lactated ringers infusion 200 mL * Agents Name O2 Air Inspired Isoflurane Isoflurane Ancillary O2 * Blood Name Total PRBC 990 mL FFP 545 mL Lines, Drains, and Airways Type Details Placement Removal Peripheral IV Placement Date: 09/16 01/06; Placed Outside of This Facility?: Yes; Size: 20 G; Orientation: Left; Location: Antecubital; Removal Date: 10/07/21; Removal Time: 830; Removal Reason: Leaking 10/02/21 0000 by Sudha Salinas RN 10/07/21830 by Mera Jenkins RN Peripheral IV Placement Date: 09/16 01/06; Placement Time: 2104; Orientation: Right; Location: Antecubital; Removal Date: 10/06/21 10/02/212104 by Yocasta Contreras RN 10/06/21 0000 by Maria T Norwood RN CVC Triple Lumen Placement Date: 09/16 01/06; Placement Time: 2223; CVC Type: Arrow; Baseline External Catheter Length: 6 cm; Baseline Total Catheter Length (cm): 20; Placed Outside of This Facility?: No; Technique Used: Maximum Sterile Technique used, Hand hygiene, Chlorhexidine skin prep, CXR taken, Real time Ultrasound guidance, Blood return present, Guidewires used accounted for; Local Anesthetic: Topical; Size: 8 Telugu; Orientation: Right; Location: Internal Jugular; Insertion Attempts: 1; Placement Verification: Blood Return, ECG-TCS, X-ray; CVC Tip Placement: Inferior Vena Cava - Above Diaphragm; Securement Method: Sutured; Patient Tolerance: Tolerated well; Diagnosis R/T CVC Insertion: Surgery; CVC Therapy Type: Blood Products, IV Fluids; Removal Date: 10/07/21; Removal Time: 01010/02/212223 by Yocasta Contreras RN 10/07/2199 by Gary Salvador RN-LP Lockwood Catheter 10/03/21; 0434; No; I & O - Strict I&O or Critically ill requiring I&O Q1-2hrs; 1; Hand hygiene performed, Site cleansed with sterile antiseptic, Sterile gloves, drape and lubricant used, Lockwood care post catheter insertion, Anchoring device applied, Catheter inserted using aseptic technique, Closed system maintained, Drainage bag secured below level of bladder; Stat lock; Straight-tip; 16 Fr. 10/03/21 0434 by Prateek Castro RN 10/06/21 1630 by Corrie Frazier RN Surgical/Incision 10/03/21; 0450; Surg ical Wound; Abdomen; DRESSING 4 X 4 STERILE 2 PACK (x2); Secured with medapore tapeAbdominal binder applied; 10/10/21; 1325 10/03/21 0450 by Magali Ma RN 10/10/21 1325 by Automatic Discharge Provider Peripheral IV Placement Date: 09/16 02/06; Placement Time: 0554; Placed Outside of This Facility?: No; Size: 18 G; Orientation: Left; Location: Wrist; Site Prep: Chlorhexidine; Local Anesthetic: Injectable; Inserted By: Dr. Dennis; Insertion attempts: 2; Ultrasound-guided Placement?: No; Patient Tolerance: Tolerated well; Removal Date: 10/07/21; Removal Time: 08; Removal Reason: Leaking 10/03/21 0554 by Jordan Dennis MD 10/07/21 0831 by Mera Jenkins, TUNDE ETT Placement Date: 09/16 02/06; Placement Time: 06; Placed Outside of This Facility?:No; Mask Ventilate: Prior to intubation; Size (mm) : 7.5; Endotracheal: Oral, Stylet used; Blade Type: ([place] scope); Placement Method: Video Laryngoscope (see comments); View Grade: 1; Viewable Anatomy: Epiglottis, Arytenoid, Vocal cords; Insertion Attempts: 1; Placement Verified By: Capnography, Auscultation, Chest Rise; Placed By: RIVET TESTER; Extubation Assessment: Suctioned, Tolerated well, Aware of surroundings, Lifts et holds head > 5 seconds, Able to swallow, Alert, Patient spontaneously breathing, Able to follow simple commands, Moves all extremities strongly; Removal Date: 10/03/21; Removal Time: 1113; Removal Person: Respiratory Therapist 10/03/21 0601 by Mera To CRNA 10/03/21 1113 by Patrica Rosenthal RT Student Arterial Line Placement Date: 09/16 02/06; Placement Time: 0602; Size: 20; Orientation: Right; Location: Radial; Site Prep: Chlorhexidine; Inserted By: Dr. Finley; Insertion Attempts: 1; Removal Date: 10/03/21; Removal Time: 153; Removal Reason: Therapy Completed 10/03/21 0602 by Sherri Grimes CRNA 10/03/21 1537 by Rupa Rodriguez RN NG/OG Tube Placement Date: 09/16 02/06; Placement Time: 0606; Inserted By: Ziyad To CRNA; Tube Type: Nasogastric; Tube Size: 16 Fr.; Tube Location: Left nostril; Removal Date: 10/06/21; Removal Time: 1215; Removal Reason: Per Order 10/03/21 0606 by Mera To CRNA 10/06/21 1215 by Corrie Frazier RN documented in this encounter Social History Tobacco Use Types Packs/Day Years Used Date Smoking Tobacco: Former Cigarettes 0.5 40 1 962 - 2001 Smokeless Tobacco: Never Alcohol Use Standard Drinks/Week Comments Yes 0 (1 standard drink = 0.6 oz pure alcohol) occasional use- mixed drinks or wine Comments No Sex and Gender Information Value Date Recorded Sex Assigned at Not on file Legal Sex Female 6:29 PM CDT Gender Identity Not on file Sexual Orientation Not on file COVID-19 Exposure Response Date Recorded In the last 10 days, have yo u been in contact with someone who was confirmed or suspected to have Coronavirus/COVID-19? No / Unsure 10/02/2021 6:18 PM CDT documented as of this encounter [...] Rodriguez RN Active documented in this encounter OR Notes * Anesthesia Postprocedure Evaluation - Braxton Mabry MD - 10/03/2021 9:00 AM CDT Anesthesia Post-op Note Cassandra Martinez Procedure(s): LAPAROTOMY EXPLORATORY, SPLEENECTOMY, RIGHT RADIAL ARTERIAL LINE PLACEMENT (N/A Abdomen) Anesthesia type: general Vitals: 10/03/21 1100 BP: (!) 201/95 Vitals: 10/03/21 1100 Pulse: 83 Vitals: 10/03/21 1100 Resp: 19 Vitals: 10/03/21 1000 Temp: 35.8 ??C Vitals: 10/03/21 1113 SpO2: 99% Patient Location: ICU Level of Consciousness: sedated Pain Management: adequate analgesia Airway Patency: patent Respiratory Status: acceptable Cardiovascular Status: acceptable Post-Op Nausea: none Postoperative Hydration: euvolemic There were no known complications for this encounter. * Anesthesia Preprocedure Evaluation - Jordan Dennis MD - 10/03/2021 5:30 AM CDT Anesthesia ROS/MED History Reviewed: Patient summary , ECG, Family history anesthesia, Anesthesia history , Medications , Labs , Unchecked boxes are not applicable Pre-Anesthetic State: alert and awake Comment: 76-year-old female who presented with Abdominal pain and a concern for ruptured spleen. Patient has a PMH for HTN, GERD, Myasthenia Gravis, back pain, and atrial fibrillation for which she was anticoagulated on Eliquis. Patient had stopped taking her Eliquis on 09/27/21 in preparation for acolonoscopy she had on 09/29/21, she resumed her Eliquis on 09/30. During the day of 10/01, she was sit ting down at a table to eat when she developed LUQ pain.She presented to [facility] where she was found to be anemic and CT scan found a high grade spleen laceration. Patient denies any falls or trauma that may have contributed to her problem. She was transfused with 4 PRBCs and transferred to OR for exploratory laparotomy. Pulmonary ROS comment: Lung tumor s/p right lobectomy. Cardiovascular (+) hypertension, arrhythmia (S/P Afib ablation. Patient had stopped taking her Eliquis on 09/27/21 in preparation for a colonoscopy she had on 09/29/21, she resumed her Eliquis on 09/30. ), (A-fib) Neuro/Psych (+) neuromuscular disease Comments: Myasthenia Gravis GI/Hepatic/Renal (+) GERD Endo/Other (+) blood dyscrasia (Hb 7,7 Patient was transfused with 4 PRBCs), (Anemia) Physical Evaluation Airway Mallampati: III TM Distance: >3 FB Neck ROM: normal Dental No notable dental history Pulmonary Pulmonary exam normal Cardiovascular Rhythm: regular Rate: normal Cardiovascular exam normal Anesthesia Plan ASA 4 Emergent Intravenous Induction Anesthesia type: general Plan for Airway: ETT Plan for Vascular: second IV, arterial line and central line Plan for Monitors: BIS and arterial blood pressure Plan for Post-op Pain Plan: IV analgesics Possible post-op mechanical ventilation explained to the patient. Anesthesia plan explained to the patient who understood and agreed to proceed. Informed Consent Anesthetic plan and risks discussed with patient of whom consent was obtained. Use of blood products discussed with patient of whom consent was obtained. . 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 [address] [place], [place] [id number] documented as of this encounter Visit Diagnoses Not on filedocumented in this encounter Administered Medications Inactive Administered Medications - up to 3 most recent administrations Medication Order MAR Action Action Date Dose Rate Site calcium chloride 10 % injection Intravenous, PRN, Starting on Sun10/03/21 at 0732, Until Sun10/03/21 at 0905, Anesthesia Intra-Op Given 10/03/2021 8:05 AM CDT 0.5 g Given 10/03/2021 7:32 AM CDT 0.5 g clindamycin (CLEOCIN) IVPB Intravenous, Administer over 30 Minutes, PRN, Starting on Sun10/03/21 at 0612, Until Sun10/03/21 at 0905, Anesthesia Intra-Op Given 10/03/2021 6:12 AM CDT 900 mg dexmedetomidine (PRECEDEX) 400 mcg in sodium chloride 0.9 % 100 mL infusion Intravenous, Continuous PRN, Starting on Sun10/03/21 at 0746, Until Sun10/03/21 at 0905, Anesthesia Intra-Op New Bag 10/03/2021 7:46 AM CDT 0.4 mcg/kg/hr 6.53 mL/hr fentaNYL (SUBLIMAZE) injection Intravenous, PRN, Starting on Sun10/03/21 at 0645, Until Sun10/03/21 at 0905, Anesthesia Intra-Op Given 10/03/2021 6:45 AM CDT 100 mcg Given 10/03/2021 6:00 AM CDT 100 mcg ketamine (KETALAR) injection Intravenous, PRN, Starting on Sun10/03/21 at 0741, Until Sun10/03/21 at 0905, Anesthesia Intra-Op Given 10/03/2021 7:41 AM CDT 20 mg lactated ringers infusion Intravenous, Continuous PRN, Starting on Sun10/03/21 at 0656, Until Sun10/03/21 at 0905, Anesthesia Intra-Op New Bag 10/03/2021 5:40 AM CDT lactated ringers infusion Intravenous, Continuous PRN, Starting on Sun10/03/21 at 0555, Until Sun10/03/21 at 0905, Anesthesia Intra-Op New Bag 10/03/2021 5:55 AM CDT lidocaine (PF) (XYLOCAINE) 1 % injection Intravenous, PRN, Starting on Sun10/03/21 at 0600, Until Sun10/03/21 at 0905, Anesthesia Intra-Op Given 10/03/2021 6:00 AM CDT 100 mg oxymetazoline (AFRIN) 0.05 % nasal spray Each Nostril, PRN, Starting on Sun10/03/21 at 0752, Until Sun10/03/21 at 0905, Anesthesia Intra-Op Given 10/03/2021 7:52 AM CDT 2 sprays phenylephrine (LAURA-SYNEPHRINE) 10 mg in sodium chloride 0.9 % 250 mL infusion Intravenous, Continuous PRN, Starting on Sun10/03/21 at 0616, Until Sun10/03/21 at 0905, Anesthesia Intra-Op New Bag 10/03/2021 6:16 AM CDT 10 mcg/min 15 mL/hr phenylephrine (LAURA-SYNEPHRINE) injection Intravenous, PRN, Starting on Sun10/03/21 at 0558, Until Sun10/03/21 at 0905, Anesthesia Intra-Op Given 10/03/2021 6:16 AM CDT 80 mcg Given 10/03/2021 6:01 AM CDT 120 mcg propofol (DIPRIVAN) IV bolus Intravenous, PRN, Starting on Sun10/03/21 at 0646, Until Sun10/03/21 at 0905, Anesthesia Intra-Op Given 10/03/2021 6:46 AM CDT 50 mg Given 10/03/2021 6:00 AM CDT 80 mg rocuronium (ZEMURON) injection Intravenous, PRN, Starting on Sun10/03/21 at 0600, Until Sun10/03/21 at 0905, Anesthesia Intra-Op Given 10/03/2021 6:44 AM CDT 50 mg Given 10/03/2021 6:21 AM CDT 20 mg Given 10/03/2021 6:00 AM CDT 30 mg sodium chloride 0.9% infusion Intravenous, Continuous PRN, Starting on Sun10/03/21 at 0532, Until Sun10/03/21 at 0905, Anesthesia Intra-Op New Bag 10/03/2021 5:32 AM CDT sugammadex (BRIDION) injection Intravenous, PRN, Starting on Sun10/03/21 at 0827, Until Sun10/03/21 at 0905, Anesthesia Intra-Op Given 10/03/2021 8:27 AM CDT 200 mg TRANSFUSE FRESH FROZEN PLASMA Routine, On Sun10/03/21 at 0648 New Bag 10/03/2021 7:04 AM CDT TRANSFUSE FRESH FROZEN PLASMA Routine, On Sun10/03/21 at 0648 New Bag 10/03/2021 7:35 AM CDT TRANSFUSE RED BLOOD CELLS STAT, On Sun10/03/21 at 0636 New Bag 10/03/2021 6:35 AM CDT TRANSFUSE RED BLOOD CELLS STAT, On Sun10/03/21 at 0643 New Bag 10/03/2021 6:43 AM CDT TRANSFUSE RED BLOOD CELLS STAT, On Sun10/03/21 at 0728 New Bag 10/03/2021 7:28 AM CDT documented in this encounter Care Teams Engraver Letter Relationship Specialty Start Date End Date Aliza Bain MD [address] [place] [address] PCP - General FAMILY PRACTICE 05/09/21 Nahid Hickman MD [address] [facility] [facility] [address] [place] [address] PCP - ONCOLOGY HEMATOLOGY/ONCOLOGY 10/03/21 Kiel Vasquez MD [address] [facility] [address] [place] [address] Consulting Physician CARDIOLOGY 10/03/21 documented as of this encounter
--- OUTSIDE RECORDS SUMMARY | 2024-07-01 00:26 | XMS_ITS | Encounter Summary ---
Author Organization [facility] Address [facility] [facility] [place] [address] [place] [address] Care Team Providers Care Account Representative Name Role Phone Aliza Bain MD Primary Care Provider Nahid Hickman MD Unavailable [phone] Kiel Vasquez MD Unavailable [phone] Encounter Details Date Type Department Care Team (Latest Contact Info) Description 02/27/2022 Travel Social History Tobacco Use Types Packs/Day [...] suspected to have Coronavirus/COVID-19? 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 [address] [place] [address] documented as of this encounter Goals Goal Patient Goal Type Associated Problems Recent Progress Patient-Stated? Author Safety ? Patient/family will have appropriate support at home upon discharge General No Zoila Gan RN documented as of this encounter Visit Diagnoses Not on filedocumented in this encounter Care Teams Account Representative Relationship Specialty Start Date End Date Aliza Bain MD [address] [place] [address] PCP - General FAMILY PRACTICE 05/09/21 Nahid Hickman MD [address] [address] PCP - ONCOLOGY HEMATOLOGY/ONCOLOGY 10/03/21 Kiel Vasquez MD [address] [facility] [address] [place] [address] Consulting Physician CARDIOLOGY 10/03/21 documented as of this encounter
--- OUTSIDE RECORDS SUMMARY | 2024-07-01 00:26 | XMS_ITS | Encounter Summary ---
Author Organization [facility] Address [facility], [facility] [place] [address] [place] [address] Care Team Providers Care Meat Market Manager Name Role Phone Aliza Bain MD Primary Care Provider Nahid Hickman MD Unavailable Kiel Vasquez MD Unavailable [phone] Encounter Details Date Type Department Care Team (Latest Contact Info) Description 08/29/2022 Travel Social History Tobacco Use Types Packs/Day [...] suspected to have Coronavirus/COVID-19? 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 [address] [place] [address] documented as of this encounter Goals Goal Patient Goal Type Associated Problems Recent Progress Patient-Stated? Author Safety ? Patient/family will have appropriate support at home upon discharge General No Zoila Gan RN documented as of this encounter Visit Diagnoses Not on filedocumented in this encounter Care Teams Meat Market Manager Relationship Specialty Start Date End Date Aliza Bain MD [address] [place] [id number] PCP - General FAMILY PRACTICE 05/09/21 Nahid Hickman MD [address] [facility] [address] [place] [address] PCP - ONCOLOGY HEMATOLOGY/ONCOLOGY 10/03/21 Kiel Vasquez MD [address] [facility] [address] [place] [address] Consulting Physician CARDIOLOGY 10/03/21 documented as of this encounter
--- OUTSIDE RECORDS SUMMARY | 2024-07-01 00:26 | XMS_ITS | Encounter Summary ---
Author Organization [facility] Address [address] [place] [address]. [place] [address] [place] [address] Care Team Providers Care Event Decorator And Designer Name Role Phone Aliza Bain MD Primary Care Provider Nahid Hickman MD Unavailable [phone] Kiel Vasquez MD Unavailable [phone] Encounter Details Date Type Department Care Team (Late st Contact Info) Description 10/18/2021 Orders Only [facility] Laboratory [address] [place] [address] Felicia N[place], [facility] [address] [facility] [address] [address] [place] [address] Social History Tobacco Use Types Packs/Day Years [...] suspected to have Coronavirus/COVID-19? 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 [address] [place] [address] documented as of this encounter Goals Goal Patient Goal Type Associated Problems Recent Progress Patient-Stated? Author Safety ? Patient/family will have appropriate support at home upon discharge General No Bonnieerbrink, Zoila, RN documented as of this encounter Results * (ABNORMAL) CBC, AUTO, NO DIFF (10/18/2021 2:40 PM CDT) WBC 9.1 4.5 - 11.0 x10'3/uL 10/18/2021 3:41 PM CDT [facility] RBC 3.45(L) 4.20 - 5.40 x10'6/uL 10/18/2021 3:41 PM CDT [facility] HGB 9.7(L) 12.0 - 16.0 G/DL 10/18/2021 3:41 PM CDT [facility] HCT 30.6(L) 38.0 - 48.0 % 10/18/2021 3:41 PM CDT [facility] MCV 88.7 81.0 - 99.0 FL 10/18/2021 3:41 PM CDT [facility] MCH 28.1 27.0 - 31.0 PG 10/18/2021 3:41 PM CDT [facility] MCHC 31.7(L) 32.0 - 36.0 G/DL 10/18/2021 3:41 PM CDT [facility] RDW 17.5(H) 11.5 - 14.5 % 10/18/2021 3:41 PM CDT [facility] PLT 572(H) 130 - 400 x10'3/uL 10/18/2021 3:41 PM CDT [facility] MPV 10.3 9.3 - 12.2 FL 10/18/2021 3:41 PM CDT [facility] 10/18/2021 2:[address] REGISTRY OFFICER LABORATORY Final Result [facility] [address] [place] [address], documented in this encounter Visit Diagnoses Diagnosis Anemia, unspecified- Primary documented in this encounter Care Teams Event Decorator And Designer Relationship Specialty Start Date End Date Aliza Bain MD [address] [place] [address] PCP - General FAMILY PRACTICE 05/09/21 Nahid Hickman MD [address] [place] [address] PCP - ONCOLOGY HEMATOLOGY/ONCOLOGY 10/03/21 Kiel Vasquez MD [address] [facility] [address] [place] [address] Consulting Physician CARDIOLOGY 10/03/21 documented as of this encounter
--- OUTSIDE RECORDS SUMMARY | 2024-07-01 00:26 | XMS_ITS | Encounter Summary ---
Author Organization [facility] Address [facility]6 [facility]. [place], [place] [address] [place] [address] Care Team Providers Care Nozzle Worker Name Role Phone Aliza Bain MD Primary Care Provider Nahid Hickman MD Unavailable [phone] Kiel Vasquez MD Unavailable [phone] Reason for Referral * Consultation (Routine) - Closed Specialty Diagnoses / Procedures Referred By Meghana vigil Referred To Contact OPHTHALMOLOGY Diagnoses Ptosis of right eyelid Procedures OFFICE/OUTPT VISIT,NEW,LEVL III OFFICE/OUTPT VISIT,NEW,LEVL IV OFFICE/OUTPT VISIT,NEW,LEVL V OFFICE/OUTPT VISIT,EST,LEVL III OFFICE/OUTPT VISIT,EST,LEVL IV OFFICE/OUTPT VISIT,EST,LEVL V Kris Amado MD [address] [place] [address] Phone: tel: fax: [address] [address] Phone: tel: fax: Referral ID Status Reason Start Date Expiration Date V isits Requested Visits Authorized [id number] Closed Specialty Services 02/27/2022 02/27/2023 99 99 Reason for Visit * Reason Comments Follow Up * Consultation/Treatment (Routine) - Closed Specialty Diagnoses / Procedures Referred By Contact Referred To Contact NEUROMUSCULOSKELETAL MEDICIN E / NEUROLOGY Diagnoses Myasthenia gravis without (acute) exacerbation ([facility]) Procedures Aliza Bain MD [address] [facility] [address] [place] [address] Phone: tel: fax: Kris Amado MD [address] [place] [address] Phone: tel:[phone] fax:[phone] Referral ID Status Reason Start Date Expiration Date Visits Re quested Visits Authorized [id number] Closed 02/24/2022 08/23/2022 12 12 Encounter Details Date Type Department Care Team (Late st Contact Info) Description 02/27/2022 2:40 PM CDT Office Visit [facility] Multispecialty Care - [facility] [address] [facility], [address] [place] [address] Kris Amado MD 3 [place], [place] [phone] Follow Up Social History Tobacco Use Types [...] Sign Reading Time Taken Comments Blood Pressure 132/82 02/27/2022 2:39 PM CDT Pulse 73 02/27/2022 2:39 PM CDT Temperature 36.7 ??C (98 ??F) 02/27/2022 2:39 PM CDT Respiratory Rate - - Oxygen Saturation 98% 02/27/2022 2:39 PM CDT Inhaled Oxygen Concentration - - Weight 64.4 kg (142 lb) 02/27/2022 2:39 PM CDT Height 160 cm (5' 3 ) 02/27/2022 2:39 PM CDT Body Mass Index 25.15 02/27/2022 2:39 PM CDT documented in this encounter Functional [...] Progress Notes * Kris Amado MD - 02/27/2022 2:40 PM CDT Chief Complaint: myasthenia HPI: We had the pleasure of seeing Ms. Martinez in the clinic. She is accompanied by her . History isobtained from both of them and from review of records. Since I last saw her she had cardiac ablation. She notes that she is no longer in atrial fibrillation. She is still continuing apixaban. Next, she also had recently had a splenic rupture. She underwent surgery for that. She is still recovering from it. She has stopped Mestinon. Her eye symptoms have not worsened. She wants to hold off any medications for myasthenia for now until the splenic rupture heals up. Review of Systems Gen:?denies??recent fever Eyes:?denies??double vision ENT:?denies??epistaxis Pulm:?denies??shortness of breath Cardiac:??denies??Chest pain GI:??has??lower abdominal pain Musc:?has??back pain Neuro: ??See HPI Current Outpatient Medications Medication Sig Dispense Refill ??? apixaban 5 MG tablet Take 5 mg by mouth 2 (two) times daily. ??? aspirin EC (ECOTRIN) 81 MG tablet Take 81 mg by mouth daily. ??? calcium carbonate-vitamin D (OYSTER SHELL CALCIUM-VITAMIN D) 500-200 MG-UNIT Tab Take 1 tablet by mouth daily. ??? clindamycin (CLEOCIN) 300 MG capsule Take 300 mg by mouth every 12 (twelve) hours. ??? Cyanocobalamin 100 MCG Tab Take 100 mcg by mouth daily. ??? dilTIAZem XR (DILACOR XR) 120 MG 24 hr capsule Take 240 mg by mouth daily. ??? hydroCHLOROthiazide 25 MG tablet Take 25 mg by mouth every morning. ??? Olmesartan Medoxomil 40 MG Tab Take 40 mg by mouth daily. ??? pantoprazole EC 40 MG tablet ??? TIADYLT ER 120 MG 24 hr capsule 120 mg daily. Indications: haven't started yet No current facility-administered medications for this visit. Filed Vitals: 02/27/22 1439 BP: 132/82 Pulse: 73 Temp: 98 ??F (36.7 ??C) TempSrc: Temporal SpO2: 98% Weight: 64.4 kg (142 lb) Height: 5' 3 (1.6 m) Past Medical History: Diagnosis Date ??? Abrasion Done at [facility] ??? Anticoagulated ??? Atrial fibrillation (CMS/HCC) ??? Chronic back pain ??? GERD (gastroesophageal reflux disease) ??? HTN (hypertension) ??? 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 Myasthenia gravis (CMS/HCC) Past Surgical History: Procedure Laterality Date ??? ANKLE FRACTURE SURGERY right ??? HYSTERECTOMY partial ??? THORACOTOMY,MAJOR,EXPLOR/BIOPSY Right 07/20/2020 Right upper ??? TONSILLECTOMY Family History Problem Relation Name Age of Onset ??? Hypertension Mother ??? Heart Disease Mother ??? Other (TIA) Mother ??? Hypertension Father ??? Heart Disease Father Social History Tobacco Use ??? Smoking status: Former Smoker Packs/day: 0.50 Years: 40.00 Pack years: 20.00 Types: Cigarettes Quit date: 2001 Years since quittin.7 ??? Smokeless tobacco: Never Used Vaping Use ??? Vaping Use: Never used Substance Use Topics ??? Alcohol use: Yes Comment: occasional use- mixed drinks or wine ??? Drug use: Never CRANIAL NERVES: III, IV, : normal extraocular movements right eyelid ptosis. V: Normal jaw closure and opening. VII: face was symmetric. IX-X: palate elevates at midline. XI: normal symmetric shoulder shrug. XII: tongue was midline and strong. ?? MOTOR: Normal strength 5/5 on MRC scale in the upper and lower extremities. ?? GAIT: Normal stride and base. 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 So far her eye symptoms are remained stable. I will hold off on Mestinon as she has a GI issues. I will refer her to oculoplastics to get her ptosis corrected as it is affecting her vision.. She also has microvascular disease. She is already optimized on aspirin and apixaban. I have asked her to continue same. She also had carotid stenosis. She will follow-up with vascular surgery yearly as before. Finally, she does have recent history of splenic rupture as well as cardiac ablation for atrial fibrillation.She will continue apixaban for stroke prevention. I will see back in 6 months Time spent: 20 total minutes reviewing records, history that was separately obtained, performing the exam, providing education to the patient/caregiver, ordering medicine and documenting in the medical record. 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 [address] [place], [place] [id number] Scheduled Referrals Name Type Priority Associated Diagnoses Orde r Schedule Ambulatory Referral to Ophthalmology Referral Routine Ptosis of right eyelid Ordered: 02/27/2022 documented as of this encounter Goals Goal Patient Goal Type Associated Problems Recent Progress Patient-Stated? Author Safety ? Patient/family will have appropriate support at home upon discharge Zoila Deng, TUNDE documented as of this encounter Visit Diagnoses Diagnosis Ptosis of right eyelid- Primary Unspecified ptosis of eyelid documented in this encounter Care Teams Nozzle Worker Relationship Specialty Start Date End Date Aliza Bain MD [address] [place] [address] PCP - General FAMILY PRACTICE 05/09/21 Nahid Hickman MD [address] [facility] [address] [place] [address] PCP - ONCOLOGY HEMATOLOGY/ONCOLOGY 10/03/21 Kiel Vasquez MD [address] [facility] [address] [place] [address] Consulting Physician CARDIOLOGY 10/03/21 documented as of this encounter
--- OUTSIDE RECORDS SUMMARY | 2024-07-01 00:26 | XMS_ITS | Encounter Summary ---
Author Organization [facility] Address [facility]6 [facility] [place] [address] [place] [address] Care Team Providers Care Senior Trial Attorney Name Role Phone Aliza Bain MD Primary Care Provider Nahid Hickman MD Unavailable [phone] Kiel Vasquez MD Unavailable [phone] Reason for Referral * Imaging (Routine) - Closed Specialty Diagnoses / Procedures Referred By Contac t Referred To Contact RADIOLOGY Diagnoses Bilateral carotid artery stenosis Procedures USV CAROTID DUPLEX JEFF Kris Amado MD [address] [place] [address] Phone: tel: fax: Referral ID Status Reason Start Date Expiration Date Visits Re quested Visits Authorized [id number] Closed 08/29/2022 08/30/2023 1 1 Reason for Visit * Reason Comments Follow Up * Consultation/Treatment (Routine) - Closed Specialty Diagnoses / Procedures Referred By Contact Referred To Contact NEUROMUSCULOSKELETAL MEDICIN E / NEUROLOGY Diagnoses follow up Aliza Bain MD [facility]7 [facility] [address] [place] [address] Phone: tel: fax: Kris Amado MD [address] [place] [address] Phone: tel:[phone] fax:[phone] Referral ID Status Reason Start Date Expiration Date V isits Requested Visits Authorized [id number] Closed Specialty Services 08/29/2022 09/30/2023 100 100 Encounter Details Date Type Department Care Team (Late st Contact Info) Description 08/29/2022 1:40 PM CDT Office Visit [facility] Multispecialty Care - [facility] [address] [facility], [address] [place] [address] Kris Amado MD [address] [place] [address] Follow Up Social History Tobacco Use Types Packs/Day Years Used Date Smoking Tobacco: Former Cigarettes 0.5 40 1 962 - 2001 Smokeless Tobacco: Never Tobacco Cessation:Counseling Given: Not Answered Alcohol Use Standard Drinks/Week Comments Yes 0 [...] Sign Reading Time Taken Comments Blood Pressure 148/68 08/29/2022 2:10 PM CDT Pulse 68 08/29/2022 1:42 PM CDT Temperature 36.8 ??C (98.2 ??F) 08/29/2022 1:42 PM CD T Respiratory Rate - - Oxygen Saturation 97% 08/29/2022 1:42 PM CDT Inhaled Oxygen Concentration - - Weight 66.5 kg (146 lb 11.2 oz) 08/29/2022 1:42 PM CDT Height 160 cm (5' 3 ) 08/29/2022 1:42 PM CDT pt stated Body Mass Index 25.99 08/29/2022 1:42 PM CDT documented in this encounter Functional [...] Progress Notes * Kris Amado MD - 08/29/2022 1:40 PM CDT Chief Complaint: myasthenia HPI: We have the pleasure of seeing Ms. Martinez in the clinic. Since her last overall she has been doing well. She had blepharoplasty. She notes that this has helped her eyelid ptosis. She is able to see better. She notes that she has been getting fatigued more often. In addition she also has noticed weakness of her arms and legs. This is more subjective. She is still able to do her ADLs. There is no falls or near falls. She is continuing her home medications as before. She does note that she has family member who had myasthenia. She also has noticed myasthenia symptoms more now that the rest of her medical issues have stabilized. She is okay to start Mestinon. If her symptoms worsen, she will contact me at which time I will do EMG and start her on a low-dose prednisone. Review of Systems Gen:?denies??recent fever Eyes:?denies?double vision ENT:?denies?epistaxis Pulm:?denies??shortness of breath Cardiac:??denies??chest pain Musc:has??back pain Heme:??denies??easy bruising Neuro: ??See HPI Current Outpatient Medications Medication [...] facility-administered medications for this visit. Filed Vitals: 08/29/22 1342 08/29/22 1410 BP: (!) 143/76 (!) 148/68 Pulse: 68 Temp: 98.2 ??F (36.8 ??C) TempSrc: Temporal SpO2: 97% Weight: 66.5 kg (146 lb 11.2 oz) Height: 5' 3 (1.6 m) Past Medical History: Diagnosis Date ??? Abrasion Done at [facility] ??? Anticoagulated ??? Atrial fibrillation (CMS/HCC) [...] Types: Cigarettes Quit date: 2001 Years since quittin.2 ??? Smokeless tobacco: Never Vaping Use ??? Vaping Use: Never used Substance Use Topics ??? Alcohol use: Yes Comment: occasional use- mixed drinks or wine ??? Drug use: Never CRANIAL NERVES: ?? III, IV, : normal extraocular movements??right??eyelid ptosis. V: Normal jaw closure and opening. VII: face was symmetric. IX-X: palate elevates at midline. XI: normal symmetric shoulder shrug. XII: tongue was midline and strong. ?? MOTOR: Normal strength 5/5 on MRC scale in the upper and lower extremities. ?? GAIT: Normal stride and base. ?? 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 She is s/p blepharoplasty for history of eyelid ptosis, and she notes that she has been doing well from it. ??She also has microvascular disease. ??She is already optimized on aspirin and apixaban. ??I have asked her to continue same. ??She also hasb/l carotid stenosis. I will do a carotid ultrasound to assess the degree of stenosis, and based onthat we will put a referral to vascular surgery. She also has fatigue, and weakness of her left side today. I suspect she might be getting more of a generalized myasthenia. I have prescribed her Mestinon 60 mg take 1 tablet 3 times a day. I did not do it in because abdominal cramps. I have asked her to start as half tablet and see if she benefits from this. If she develops more generalized symptoms, I will do nerve conduction EMG with repetitive nerve stimulation and look for generalized myasthenia gravis. If she does progress denies myasthenia gravis, I will start her on prednisone treatment. She will follow-up in 4 months with my nurse practitioner. Time spent: 20 total minutes reviewing records, history that was separately obtained, performing the exam, providing education to the patient/caregiver, ordering medicine and documenting in the medical record. 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 [address] [place], [place] [address] documented as of this encounter Goals Goal Patient Goal Type Associated Problems Recent Progress Patient-Stated? Author Safety ? Patient/family will have appropriate support at home upon discharge General Zoila Gold, TUNDE documented as of this encounter Results * USV CAROTID DUPLEX JEFF (09/27/2022 3:33 PM CDT) Anatomical Region Laterality Modality Neck Vascular Ultraso und 09/27/2022 3:10 PM CDT Narrative 09/27/2022 9:38 PM CDT ?CAROTID ARTERY DUPLEX IMAGING ? VASCULAR LAB Pat.Name: ??CASSANDRA MARTINEZ ? Pat.ID: ?[id number] ? St.Date: ?? 09/27/2022 ? Refer.MD: ??Aliza Bain Exam Time: 3:10:00 PM ?Study Type:MELLISSA VS Duplex Carotid BI ??Age: ??1945,77Y ? Sex: ? F ? Sonogrphr: JACKELINE Ho ?Pat. Stat.:Outpatient ? History / Clinical:F/U carotid [...] CAROTID ARTERY DUPLEX IMAGING VASCULAR LAB Pat.Name: CASSANDRA MARTINEZ Pat.ID: [id number] .Date: 09/27/2022 Refer.MD: Aliza Bani Exam Time: 3:10:00 PM Study Type:MELLISSA VS [...] PM Jimmy Morris M.D. Kris Amado MD VASC Final Res ult documented in this encounter Visit Diagnoses Diagnosis Myasthenia gravis ([facility])- Primary Myasthenia gravis without exacerbation Bilateral carotid artery stenosis Occlusion and stenosis of multiple and bilateral precerebral arteries without mention of cerebral infarction Bilateral carotid artery stenosis Occlusion and stenosis of multiple and bilateral precerebral arteries without mention of cerebral infarction documented in this encounter Care Teams Senior Trial Attorney Relationship Specialty Start Date End Date Aliza Bain MD [address] [place] [address] PCP - General FAMILY PRACTICE 05/09/21 Nahid Hickman MD [facility] [address] [place] [address] PCP - ONCOLOGY HEMATOLOGY/ONCOLOGY 10/03/21 Kiel Vasquez MD [address] [facility] [address] [place] [address] Consulting Physician CARDIOLOGY 10/03/21 documented as of this encounter
--- OUTSIDE RECORDS SUMMARY | 2024-07-01 00:26 | XMS_ITS | Encounter Summary ---
Author Organization [facility] Address [address] [place] [address]. [place] [address] [place] [address] Care Team Providers Care Trade Economist Name Role Phone Aliza Bain MD Primary Care Provider Nahid Hickman MD Unavailable [phone] Kiel Vasquez MD Unavailable [phone] Encounter Details Date Type Department Care Team (Late st Contact Info) Description 10/18/2021 2:27 PM CDT - 10/18/2021 11:59 PM CDT Hospital Encounter [facility] [place] [address] Felicia Nj, CAT [address] [place] [address] Discharge Disposition: Home or Self Care (Routine [...] this encounter Medications at Time of Discharge apixaban 5 MG tablet Take 1 tablet (5 mg total) by mouth 2 (two) times daily. 03/31/2021 aspirin EC (ECOTRIN) 81 MG tablet Take 1 tablet (81 mg total) by mouth daily. calcium carbonate-vitamin D (OYSTER SHELL CALCIUM-VITAMIN D) 500-200 MG-UNIT Tab Take 1 tablet by mouth daily. Cyanocobalamin 100 MCG Tab Take 100 mcg by mouth daily. hydroCHLOROthiazi de 25 MG tablet Take 1 tablet (25 mg total) by mouth every morning. 04/07/2021 Olmesartan Medoxomil 40 MG Tab Take 1 tablet (40 mg total) by mouth daily. pantoprazole EC 40 MG tablet 10/12/2021 TIADYLT ER 120 MG 24 hr capsuleIndication s:haven't started yet 1 capsule (120 mg total) daily. 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 [address] [facility], [address] [place] [address] Kris Amado MD [address] [facility] [place], [place] [phone] 10/16/2024 11:[address] [facility] Vascular Lab [address] [facility] [place], [place] [phone] Jimmy Morris MD Three [facility]. [address] [place], [place] [phone] documented as of this encounter Goals Goal Patient Goal Type Associated Problems Recent Progress Patient-Stated? Author Safety ? Patient/family will have appropriate support at home upon discharge General Zoila Gold, TUNDE documented as of this encounter Procedures Procedure Name Priority Date/Time Associated Diagnosis Comments CBC, AUTO, NO DIFF Routine 10/18/2021 2: 40 PM CDT Anemia, unspecified documented in this encounter Results * (ABNORMAL) CBC, AUTO, NO DIFF (10/18/2021 2:40 PM CDT) WBC 9.1 4.5 - 11.0 x10'3/uL 10/18/2021 3:41 PM CDT [facility] RBC 3.45(L) 4.20 - 5.40 x10'6/uL 10/18/2021 3:41 PM CDT [facility] HGB 9.7(L) 12.0 - 16.0 G/DL 10/18/2021 3:41 PM CDT [facility] HCT 30.6(L) 38.0 - 48.0 % 10/18/2021 3:41 PM CDT [facility] MCV 88.7 81.0 - 99.0 FL 10/18/2021 3:41 PM CDT [facility] MCH 28.1 27.0 - 31.0 PG 10/18/2021 3:41 PM CDT [facility] MCHC 31.7(L) 32.0 - 36.0 G/DL 10/18/2021 3:41 PM CDT [facility] RDW 17.5(H) 11.5 - 14.5 % 10/18/2021 3:41 PM CDT [facility] PLT 572(H) 130 - 400 x10'3/uL 10/18/2021 3:41 PM CDT [facility] MPV 10.3 9.3 - 12.2 FL 10/18/2021 3:41 PM CDT [facility] 10/18/2021 2:40 PM CDT Felicia Nj [facility] Final Result [facility] [address] [place] [address], documented in this encounter Visit Diagnoses Diagnosis Anemia, unspecified documented in this encounter Care Teams Trade Economist Relationship Specialty Start Date End Date Aliza Bain MD [address] [place] [address] PCP - General FAMILY PRACTICE 05/09/21 Nahid Hickman MD [address] [facility] [address] [place] [address] PCP - ONCOLOGY HEMATOLOGY/ONCOLOGY 10/03/21 Kiel Vasquez MD [address] [facility] [address] [place] [address] Consulting Physician CARDIOLOGY 10/03/21 documented as of this encounter
--- OUTSIDE RECORDS SUMMARY | 2024-07-01 00:26 | XMS_ITS | Encounter Summary ---
Author Organization [facility] Address [facility] 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 [address] [place] [address] documented as of this encounter Goals Goal Patient Goal Type Associated Problems Recent Progress Patient-Stated? Author Safety ? Patient/family will have appropriate support at home upon discharge General No Zoila Gan RN documented as of this encounter Visit Diagnoses Not on filedocumented in this encounter Care Teams Head Grinder Relationship Specialty Start Date End Date Aliza Bain MD [address] [place] [address] PCP - General FAMILY PRACTICE 05/09/21 Nahid Hickman MD [address] [address] PCP - ONCOLOGY HEMATOLOGY/ONCOLOGY 10/03/21 Kiel Vasquez MD [address] [facility] [address] [place] [address] Consulting Physician CARDIOLOGY 10/03/21 documented as of this encounter
--- OUTSIDE RECORDS SUMMARY | 2024-07-01 00:26 | XMS_ITS | Encounter Summary ---
Author Organization [facility] Address [facility] [facility] [place] [address] [place] [address] Care Team Providers Care Band Builder Name Role Phone Last Bain MD Primary Care Provider Nahid Hickman MD Unavailable [phone] Kiel Vasquez MD Unavailable [phone] Reason for Visit * Reason Comments Syncope Abdominal Injury * Auth/Cert Specialty Diagnoses / Procedures Referred By Contac t Referred To Contact Diagnoses Spontaneous rupture of spleen Splenic laceration SPLENIC LACERATION Spontaneous rupture of spleen Procedures GENERAL Referral ID Status Reason Start Date Expiration Date Visits Re quested Visits Authorized [id number] 1 1 Encounter Details Date Type Department Care Team (Late st Contact Info) Description 10/03/2021 5:15 AM CDT - 10/03/2021 8:15 AM CDT Surgery [facility] OR [address] [place] [address] Luis Pina MD [address] [facility] [address] [place] [address] LAPAROTOMY EXPLORATORY, SPLEENECTOMY, RIGHT RADIAL ARTERIAL LINE PLACEMENT Surgery Details Date/Time Status Location OR Service Patient Class Case Class Case Type Trauma Case? 10/03/2021 5:15 AM Posted [facility] OR MS 03 General Inpatient A - Emergency : Now No Panel 1 Procedure LRB Anes Op Region Wound Class Comments LAPAROTOMY EXPLORATORY, SPLEENECTOMY, RIGHT RADIAL ARTERIAL LINE PLACEMENT N/A General Abdomen Clean Contaminated Surgeon Surgeon Role Service Panel Kanu Wilcox MD Resident - Observing General 1 Nils Astudillo MD Resident - Observing Gener al 1 Luis Pina MD Primary General 1 Micha Valdes MD Resident - Assisting Vascular 1 Case Notes DECLARED CASE documented in this encounter Social History Tobacco Use Types Packs/Day Years Used Date Smoking Tobacco: Former Cigarettes 0.5 40 1 2001 Smokeless Tobacco: Never Alcohol Use Standard [...] Sign Reading Time Taken Comments Blood Pressure 122/57 10/03/2021 5:03 AM CDT Pulse 83 10/03/2021 5:03 AM CDT Temperature 36.6 ??C (97.8 ??F) 10/03/2021 4:19 AM CD T Respiratory Rate 30 10/03/2021 5:03 AM CDT Oxygen Saturation 99% 10/03/2021 5:03 AM CDT Inhaled Oxygen Concentration - - Weight 65.3 kg (143 lb 15.4 oz) 10/03/2021 1:34 AM CDT Height 160 cm (5' 3 ) 10/03/2021 1:34 AM CDT Body Mass Index 29.72 10/03/2021 1:34 AM CDT documented in this encounter Functional [...] Rodriguez RN Active documented in this encounter Discharge Summaries * Madie Jaime MD - 10/10/2021 11:25 AM CDT Discharge Summary Admit Date: 10/03/2021 1:29 AM Discharge date and time: 10/10/2021 Admitting Physician: Miguel Armas MD Primary Care Physician: LAST BAIN MD Discharge Physician: Luis Pina MD Admission Diagnosis: Spontaneous rupture of spleen [D73.5] Splenic laceration [S36.039A] Discharge Diagnosis: Spontaneous rupture of spleen [D73.5] Splenic laceration [S36.039A] Code Status: Prior Procedures: LAPAROTOMY EXPLORATORY, SPLEENECTOMY, RIGHT RADIAL ARTERIAL LINE PLACEMENT: 37575 (CPT??) Hospital Course: Zee Martinez is a 76-year-old female with PMH of HTN, A. fib on Eliquis, myasthenia gravis, who was transferred for grade 4 splenic laceration s/p colonoscopy and EGD on 09/29/2021. Non operative management was pursued but clinical status declined and she was taken to the OR for urgent splenectomy. Po stoperatively, she was placed in the ICU due to uncontrolled hypertension, that was managed with clevidipine infusion. She was weaned from this and downgraded to a general floor for continued management. She was given post splenectomy vaccinations. Her diet was slowly advanced. She continued to have pain well controlled on oral pain medication, tolerating general diet without n/v, ambulating at baseline, voiding normally, and had normal bowel function. Patient was discharged home in stable condition. Consults: None Discharge Medications: See discharge med rec Disposition: Home or Self Care (Routine Discharge) Patient Instructions: See EMR Cosigned by Luis Pina MD at 10/25/2021 10:33 PM CDT documented in this encounter Discharge Instructions * Discharge Instructions* Madie Jaime MD - 10/10/2021 6:46 AM CDT Activity: No lifting, pulling or pushing greater than 10 lbs for 6 weeks. Please take tylenol 1000mg every 6 hours alternating with ibuprofen 600mg every 6 hours for pain asneeded. Diet: OK to resume previous diet as tolerated. Dressing: Please apply a dry dressing as needed. You may replace with a dry bandage as needed to keep the wound dry and clean. Bathing: May shower no bathing for 2 weeks. -Allow water to run over incisions. Do not scrub. Pat dry. Follow up: Call Dr. Pina's office at [phone] to schedule follow up in 1-2 weeks. Please call the office or return to the ED if you have redness, swelling and pus like drainage coming from your incisions, fevers >101.5, severe nausea or vomiting, severe abdominal pain not controlled by pain medications or if you have any other questions or concerns. * Attachments The following attachments cannot be sent through Care Everywhere. * Splenectomy Discharge Instructions (Maltese) * How to Prevent Blood Clots (Maltese) * How to Prevent Surgical Site Infections (Maltese) documented in this encounter Medications at Time [...] tablet (40 mg total) by mouth daily. documented as of this encounter Progress Notes * Paz Dubose PTA - 10/10/2021 9:53 AM CDT Pumping Plant Operator attempted to see pt for PT at approx 9:53am but pt states that she is leaving; RN also stated that she already has D/C papers for pt. Pumping Plant Operator asked if pt would like to practice stairs before D/C. Pt states that she does not have to do stairs at all at home since she has an elevator. Pt was verbally educated to perform steps non reciprocally for safety and energy conservation. Pumping Plant Operator also explained to avoid pulling/pushing on handrail to adhere to abdominal precautions. Pt was verbally educated on abdominal precautions. Pt asked if she needed a walker; designer writer explained that previous therapy notes recommend pt to use 2ww and have home PT. Pt verbalizes understanding and voices no further questions/concerns. Pt voices nothing else she would like to practice and states that she was justgiven the muscle relaxer and feels groggy. Pt states that she would like to rest before D/C. Writerencouraged pt to ambulate every hour while awake if able. Pt verbalizes understanding. RN aware. * Madie Jaime MD - 10/10/2021 6:38 AM CDT Surgery progress note Assessment and Plan: Zee Martinez is a 76-year-old Female with Spontaneous rupture of spleen after colonoscopy & EGD on 09/29 LAPAROTOMY EXPLORATORY & SPLEENECTOMYon 10/03/2021 - Doing well. Pain well controlled. - Passing flatus. Had a BM. Tolerating a diet. Continue Gen diet. - No need for labs. - DVT prophylaxis: SCD. Eliquis. - Post-splenectomy vaccinations have been administered. Dispo: Plan to discharge home today. Please HALO supervisor telephone answering service resident with any questions. Staff: Dr. Pina Subjective: NAEO, Pain adequately controlled, denies nausea, passing flats. Feels well today and is ready to get home. Objective: Filed Vitals: 10/09/21 0008 10/09/21 0736 10/09/21 1307 10/09/212019 BP: (!) 158/55 (!) 149/52 (!) 141/44 (!) 167/54 Pulse: 71 70 70 75 Resp: 14 14 18 Temp: 98.7 ??F (37.1 ??C) 98.1 ??F (36.7 ??C) 98.1 ??F (36.7 ??C) 98.5 ??F (36.9 ??C) TempSrc: Oral Oral SpO2: 96% 96% 98% 98% Weight: Height: Physical Exam: Constitutional: resting comfortably, no acute distress HEENT: normocephalic, clear conjunctivae, neck supple, trachea midline Respiratory: symmetric chest rise, no increased work of breathing Cardiovascular: regular rate Abdomen: soft, non tender, incision closed with lida c/d/i Extremities: no tenderness, no edema Psych: appropriate affect Intake/Output Summary (Last 24 hours) at 10/10/2021 0638 Last data filed at 10/09/2021 1200 Gross per 24 hour Intake 240 ml Output -- Net 240 ml Labs: SODIUM Date Value Ref Range Status 10/07/2021 134 (L) 136 - 145 MMOL/L Final POTASSIUM Date Value Ref Range Status 10/07/2021 4.8 3.5 - 5.1 MMOL/L Final Comment: MILD HEMOLYSIS, RESULT MAY BE AFFECTED. CHLORIDE S/P/B Date Value Ref Range Status 10/07/2021 105 98 - 107 MMOL/L Final CO2 Date Value Ref Range Status 10/07/2021 23.5 21.0 - 32.0 MMOL/L Final ANION GAP Date Value Ref Range Status 10/07/2021 5.5 5.0 - 15.0 MMOL/L Final BUN Date Value Ref Range Status 10/07/2021 18 7 - 18 MG/DL Final CREATININE S/P/B Date Value Ref Range Status 10/07/2021 0.68 0.55 - 1.02 MG/DL Final BUN CREATININE RATIO Date Value Ref Range Status 10/02/2021 19.1 6 - 26 Final eGFR Non-Afr. Amer. Date Value Ref Range Status 10/07/2021 84 (L) >90 ML/MIN/1.73 M2 Final eGFR Afr. Amer. Date Value Ref Range Status 10/07/2021 >90 >90 ML/MIN/1.73 M2 Final GLUCOSE Date Value Ref Range Status 10/07/2021 87 74 - 106 MG/DL Final CALCIUM Date Value Ref Range Status 10/07/2021 8.7 8.5 - 10.1 MG/DL Final Recent Labs Lab 10/03/21 0720 10/03/21 1106 10/04/21 0345 10/05/21 0456 10/06/21 0500 10/07/21 0825 10/07/21 2356 WBC 10.1 < > 25.0* < > 25.0* 13.4* 12.0* RBC 2.65* < > 3.52* < > 3.37* 3.26* 3.36* HGB 7.4* < > 9.7* < > 9.4* 9.0* 9.2* HCT 22.5* < > 28.6* < > 28.7* 27.8* 28.2* MCV 84.9 < > 81.3 < > 85.2 85.3 83.9 MCH 27.9 < > 27.6 < > 27.9 27.6 27.4 MCHC 32.9* < > 33.9 < > 32.8* 32.4* 32.6* PLT 153 < > 129* < > 136* 176 171 RDW 17.7* < > 18.2* < > 17.7* 17.2* 17.2* MPV 10.9* < > 10.8* < > 11.5* 11.3* 10.7* NEUC 6.67 -- 18.25* -- -- -- -- LYMC 0.51* -- 1.00 -- -- -- -- MONOC 2.93* -- 5.75* -- -- -- -- EOSC 0.00 -- 0.00 -- -- -- -- BASOC 0.00 -- 0.00 -- -- -- -- < > = values in this interval not displayed. MADIE JAIME MD 10/10/2021 Cosigned by Luis Pina MD at 11/09/2021 10:50 PM CDT Associated attestation - Luis Pina MD - 11/09/2021 10:50 PM CDT [facility] General Surgery Attending Attestation-- POD#7 s/p splenectomy I had discussed Ms. Martinez by phone with the rounding resident and authorized her discharge. I have reviewed Dr. Jaime's progress note above and concur with her findings, impression and recommendations as documented. Please see above for additional details. Zee Martinez left the hospital, with my authorization, prior to my seeing her today. I will follow up with her in clinic. Luis Pina MD [facility] General Surgery Pgr: [phone] LUIS PINA MD * Kanu Wilcox MD - 10/09/2021 7:57 AM CDT Surgery progress note Assessment and Plan: Zee Martinez is a 76-year-old Female with Spontaneous rupture of spleen after colonoscopy & EGD on 09/29 LAPAROTOMY EXPLORATORY & SPLEENECTOMYon 10/03/2021 - Doing well. Pain well controlled. D/c norco yesterday and doing well. - Passing flatus. Had a BM. Tolerating a diet. Continue Gen diet. - No need for labs. - DVT prophylaxis: SCD. Eliquis resumed today. - Will order post-splenectomy vaccinations to be given prior to discharge. Please HALO supervisor telephone answering service resident with any questions. Staff: Dr. Pina Subjective: NAEO, Pain adequately controlled, denies nausea, passing flats. Objective: Filed Vitals: 10/08/21 1242 10/08/21 2052 10/09/21 0008 10/09/21 0736 BP: (!) 144/42 (!) 142/64 (!) 158/55 (!) 149/52 Pulse: 71 81 71 70 Resp: 14 14 Temp: 98.8 ??F (37.1 ??C) 99 ??F (37.2 ??C) 98.7 ??F (37.1 ??C) 98.1 ??F (36.7 ??C) TempSrc: SpO2: 97% 95% 96% 96% Weight: Height: Physical Exam: Constitutional: resting comfortably, no acute distress HEENT: normocephalic, clear conjunctivae, neck supple, trachea midline Respiratory: symmetric chest rise, no increased work of breathing Cardiovascular: regular rate Abdomen: soft, appropriately tender, incision closed with lida c/d/i Extremities: no tenderness, no edema Psych: appropriate affect No intake or output data in the 24 hours ending 10/09/21 0757 Labs: SODIUM Date Value Ref Range Status 10/07/2021 134 (L) 136 - 145 MMOL/L Final POTASSIUM Date Value Ref Range Status 10/07/2021 4.8 3.5 - 5.1 MMOL/L Final Comment: MILD HEMOLYSIS, RESULT MAY BE AFFECTED. CHLORIDE S/P/B Date Value Ref Range Status 10/07/2021 105 98 - 107 MMOL/L Final CO2 Date Value Ref Range Status 10/07/2021 23.5 21.0 - 32.0 MMOL/L Final ANION GAP Date Value Ref Range Status 10/07/2021 5.5 5.0 - 15.0 MMOL/L Final BUN Date Value Ref Range Status 10/07/2021 18 7 - 18 MG/DL Final CREATININE S/P/B Date Value Ref Range Status 10/07/2021 0.68 0.55 - 1.02 MG/DL Final BUN CREATININE RATIO Date Value Ref Range Status 10/02/2021 19.1 6 - 26 Final eGFR Non-Afr. Amer. Date Value Ref Range Status 10/07/2021 84 (L) >90 ML/MIN/1.73 M2 Final eGFR Afr. Amer. Date Value Ref Range Status 10/07/2021 >90 >90 ML/MIN/1.73 M2 Final GLUCOSE Date Value Ref Range Status 10/07/2021 87 74 - 106 MG/DL Final CALCIUM Date Value Ref Range Status 10/07/2021 8.7 8.5 - 10.1 MG/DL Final Recent Labs Lab 10/02/21 1815 10/02/21 1815 10/03/21 0208 10/03/21 0512 10/03/21 0720 10/03/21 1106 10/04/21 0345 10/05/21 0456 10/06/21 0500 10/07/21 0825 10/07/21 2356 WBC 6.9 < > 6.2 < > 10.1 < > 25.0* < > 25.0* 13.4* 12.0* RBC 2.70* < > 2.72* < > 2.65* < > 3.52* < > 3.37* 3.26* 3.36* HGB 7.9* < > 7.7* < > 7.4* < > 9.7* < > 9.4* 9.0* 9.2* HCT 24.8* < > 23.6* < > 22.5* < > 28.6* < > 28.7* 27.8* 28.2* MCV 91.9 < > 86.8 < > 84.9 < > 81.3 < > 85.2 85.3 83.9 MCH 29.3 < > 28.3 < > 27.9 < > 27.6 < > 27.9 27.6 27.4 MCHC 31.9 < > 32.6* < > 32.9* < > 33.9 < > 32.8* 32.4* 32.6* PLT 229 < > 92* < > 153 < > 129* < > 136* 176 171 RDW 13.8 < > 15.7* < > 17.7* < > 18.2* < > 17.7* 17.2* 17.2* MPV 11.2 < > 10.8* < > 10.9* < > 10.8* < > 11.5* 11.3* 10.7* PERNEU 51.7 -- -- -- -- -- -- -- -- -- -- PERLYM 25.5 -- -- -- -- -- -- -- -- -- -- PERMON 21.5* -- -- -- -- -- -- -- -- -- -- NEUC 3.56 < > 3.58 -- 6.67 -- 18.25* -- -- -- -- LYMC 1.76 < > 0.83 -- 0.51* -- 1.00 -- -- -- -- MONOC -- -- 1.67* -- 2.93* -- 5.75* -- -- -- -- EOSC -- -- 0.01 -- 0.00 -- 0.00 -- -- -- -- BASOC -- -- 0.01 -- 0.00 -- 0.00 -- -- -- -- < > = values in this interval not displayed. KANU WILCOX MD 10/09/2021 Cosigned by Luis Pina MD at 11/14/2021 10:07 PM CDT Associated attestation - Luis Pina MD - 11/14/2021 10:07 PM CDT [facility] General Surgery Attending Attestation--POD#6 s/p splenectomy I saw and examined Zee Martinez in her room ([id number]) at 4PM today (10/09) with Dr. Mejia, have reviewed Dr. Wilcox's progress note above and concur with his findings, impression and recommendations as documented. Please see above/below for additional details. Briefly, Zee Martinez is now POD#6 s/p splenectomy for colonoscopic trauma. Stable overnight. Downgraded from ICU to 7th floor 10/06. NGT removed; tolerating regular diet started by resident team yesterday AM. Wound is C/D/I w/o erythema nor drainage. H/H stable (hct 28.2). No e/o bleeding. Advance diet as tolertated. Post splenectomy vaccines to be ordered prior to d/c. Luis Pina MD [facility] General Surgery Pgr: [phone] * Kitty Keane, PRESTO LOG OPERATOR - 10/08/2021 12:30 PM CDT PT Treatment Discharge Recommendation: home with assistance P/T home health Activity Recommendation for tobacco cloth reclaimer: Up with assist x1 with walker and gait belt; abdominal precautions with binder on at all times 10/08/21 1210 Therapy Visit Ordering Provider SUZY Carlos Subjective RN okayed session. Upon arrival, pt was seated upright in bed and agreed to PT. [facility] Reason for admission Pt is a 76 year old female who presented to an [facility] on 10/02 with syncopal episode and abdominal pain; ABD CT revealed complex splenic laceration with large amount of intraperitoneal blood. Transferred 2 units PRBCs and transferred to [facility] for further management. On 10/03: s/p emergent ex-lap and spenectomy. PMH: A-fib; Rt UL cancer s/p Rt UL lobectomy; HTN; arthritis; Rt ankle fracture and surgery. Orders: Eval and treat; Activity: Up with assist. Verified Two Patient Identifiers Yes Patient consents to therapy Yes Acute Inpatient PT Time Calculation PT Start Time 1203 PT Stop Time 1232 PT Time Calculation (min) 29 min Precautions Lifting Precautions Yes General Precautions Chair Alarm;Bed Alarm;Fall Risk Instructed on Precautions Yes;Verbalizes understanding Skin Integrity abdominal surgical incision vertically Other abdominal binder; abdominal precautions; IV; telemetry; fall risk Prior Function PLOF Comments Upon Eval on 10/07: Pt reports living with her son in a second story condo, elevator access through garage; otherwise 7 steps down with railing to access the elevator through another entrance. Bathroom was walk-in shower, grab bar; standard height toilet seat with vanity nearby to use for support. Pt reports independence with ADLs, mobility, driving, cooking, cleaning. Son works, canassist otherwise. Friends can assist PRN, unsure if she can have 24/7 assist. No AD, no falls. Has a recliner at home. Pain Pain Yes Pain Score 4 Location abdomen Interventions Re-direction;Re-positioning Activity Tolerance Limiting Factors to Endurance Acute deconditioning;Fatigue;Pain;Weakness Activity Tolerance Comments Improving Cognition Overall Cognitive Status WFL Arousal/Alertness Appropriate responses to stimuli Attention Span Appears intact Memory Appears intact Orientation Level Oriented X4 Following Commands Follows all commands and directions without difficulty Safety Judgment Good awareness of safety precautions Awareness of Errors Assistance required to identify errors made Deficits Fully aware of deficits Problem Solving Able to problem solve independently Bed Mobility Supine to Sit SBA/supervision Other (Comment) cues for log rolling technique TRANSFERS Sit to Stand SBA/supervision Other (Comment) Pt stood from EOB and completed a toilet transfer SBA with good safety awareness Gait Gait Assistance SBA/supervision;Contact guard assist Assistive Device 2 Wheeled walker Distance Ambulated (ft) 125 ft Other (Comment) Pt ambualted 25' and an additional 125' with the walker SBA/CGA with step through gait pattern, fair step length, decreased foor clearance, and decreased speed. Pt with overall good safety awareness and no LOB Balance Sitting - Static SBA Sitting - Dynamic SBA Standing - Static SBA;Support of both upper extremities Standing - Dynamic SBA;CGA;Support of both upper extremities Other (Comment) No overt LOB this session Recommendation PT Recommendation Home with assistance;Home PT PT Equipment Recommended 2 Wheeled walker Plan PT Treatments/Interventions Gait Training;Therapeutic Activities;Neuromuscular re-education;Patient/family training Progress Progressing toward goals PT Frequency 5 times/week PT - Next Appointment 10/08/21 If this is the last treatment note,it will serve as the discharge summary Yes End of Session End of Session Safety Chair alarm set/activated;Call light within reach;Nursing aware of session * Madie Jaime MD - 10/08/2021 9:01 AM CDT Surgery progress note Assessment and Plan: Zee Martinez is a 76-year-old Female with Spontaneous rupture of spleen after colonoscopy & EGD on 09/29 LAPAROTOMY EXPLORATORY & SPLEENECTOMYon 10/03/2021 - hemodynamically stable and off infusions for BP control - Oxygenating well on RA - Pain adequately controlled on current regimen. - Diet: ADAT to general with supplements, continue ppi - Abdominal exam is soft, appropriately tender, incision is c/d/i. - SLIV - Replete electrolytes PRN - DVT prophylaxis: SCD. SQ Lovenox - Will order post-splenectomy vaccinations to be given prior to discharge. Please HALO supervisor telephone answering service resident with any questions. Staff: Dr. Pina Subjective: NAEO, Pain adequately controlled, denies nausea, having acid reflux but it is improving. Objective: Filed Vitals: 10/08/21 0107 10/08/21 0524 10/08/21 0749 10/08/21 0855 BP: (!) 171/60 (!) 173/61 (!) 182/59 Pulse: 78 73 Resp: 20 20 Temp: 97.9 ??F (36.6 ??C) 98.4 ??F (36.9 ??C) TempSrc: Oral Oral SpO2: 96% 95% Weight: 76.1 kg (167 lb 12.3 oz) 76.1 kg (167 lb 12.3 oz) Height: Physical Exam: Constitutional: resting comfortably, no acute distress HEENT: normocephalic, clear conjunctivae, neck supple, trachea midline Respiratory: symmetric chest rise, no increased work of breathing Cardiovascular: regular rate Abdomen: soft, appropriately tender, incision closed with lida c/d/i Extremities: no tenderness, no edema Psych: appropriate affect Intake/Output Summary (Last 24 hours) at 10/08/2021 0901 Last data filed at 10/07/2021 1618 Gross per 24 hour Intake 100 ml Output 200 ml Net -100 ml Labs: SODIUM Date Value Ref Range Status 10/07/2021 134 (L) 136 - 145 MMOL/L Final POTASSIUM Date Value Ref Range Status 10/07/2021 4.8 3.5 - 5.1 MMOL/L Final Comment: MILD HEMOLYSIS, RESULT MAY BE AFFECTED. CHLORIDE S/P/B Date Value Ref Range Status 10/07/2021 105 98 - 107 MMOL/L Final CO2 Date Value Ref Range Status 10/07/2021 23.5 21.0 - 32.0 MMOL/L Final ANION GAP Date Value Ref Range Status 10/07/2021 5.5 5.0 - 15.0 MMOL/L Final BUN Date Value Ref Range Status 10/07/2021 18 7 - 18 MG/DL Final CREATININE S/P/B Date Value Ref Range Status 10/07/2021 0.68 0.55 - 1.02 MG/DL Final BUN CREATININE RATIO Date Value Ref Range Status 10/02/2021 19.1 6 - 26 Final eGFR Non-Afr. Amer. Date Value Ref Range Status 10/07/2021 84 (L) >90 ML/MIN/1.73 M2 Final eGFR Afr. Amer. Date Value Ref Range Status 10/07/2021 >90 >90 ML/MIN/1.73 M2 Final GLUCOSE Date Value Ref Range Status 10/07/2021 87 74 - 106 MG/DL Final CALCIUM Date Value Ref Range Status 10/07/2021 8.7 8.5 - 10.1 MG/DL Final Recent Labs Lab 10/02/21 1815 10/02/21 1815 10/03/21 0208 10/03/21 0512 10/03/21 0720 10/03/21 1106 10/04/21 0345 10/05/21 0456 10/06/21 0500 10/07/21 0825 10/07/21 2356 WBC 6.9 < > 6.2 < > 10.1 < > 25.0* < > 25.0* 13.4* 12.0* RBC 2.70* < > 2.72* < > 2.65* < > 3.52* < > 3.37* 3.26* 3.36* HGB 7.9* < > 7.7* < > 7.4* < > 9.7* < > 9.4* 9.0* 9.2* HCT 24.8* < > 23.6* < > 22.5* < > 28.6* < > 28.7* 27.8* 28.2* MCV 91.9 < > 86.8 < > 84.9 < > 81.3 < > 85.2 85.3 83.9 MCH 29.3 < > 28.3 < > 27.9 < > 27.6 < > 27.9 27.6 27.4 MCHC 31.9 < > 32.6* < > 32.9* < > 33.9 < > 32.8* 32.4* 32.6* PLT 229 < > 92* < > 153 < > 129* < > 136* 176 171 RDW 13.8 < > 15.7* < > 17.7* < > 18.2* < > 17.7* 17.2* 17.2* MPV 11.2 < > 10.8* < > 10.9* < > 10.8* < > 11.5* 11.3* 10.7* PERNEU 51.7 -- -- -- -- -- -- -- -- -- -- PERLYM 25.5 -- -- -- -- -- -- -- -- -- -- PERMON 21.5* -- -- -- -- -- -- -- -- -- -- NEUC 3.56 < > 3.58 -- 6.67 -- 18.25* -- -- -- -- LYMC 1.76 < > 0.83 -- 0.51* -- 1.00 -- -- -- -- MONOC -- -- 1.67* -- 2.93* -- 5.75* -- -- -- -- EOSC -- -- 0.01 -- 0.00 -- 0.00 -- -- -- -- BASOC -- -- 0.01 -- 0.00 -- 0.00 -- -- -- -- < > = values in this interval not displayed. MADIE JAIME MD 10/08/2021 Cosigned by Luis Pina MD at 11/14/2021 10:04 PM CDT Associated attestation - Luis Pina MD - 11/14/2021 10:04 PM CDT [facility] General Surgery Attending Attestation--POD#5 s/p splenectomy I saw and examined Zee Martinez in her room ([id number]) at 11:40 today (10/08), have reviewed Dr. Jaime's progress note above and concur with her findings, impression and recommendations as documented. Please see above/below for additional details. Briefly, Zee Martinez is now POD#5 s/p splenectomy for colonoscopic trauma. Stable overnight. Downgraded from ICU to 7th floor 10/06. NGT removed; tolerating CLD started by resident team this AM. Wound is C/D/I w/o erythema nor drainage. H/H stable (hct 28.2). No e/o bleeding. Advance diet as tolertated. Luis Pina MD [facility] General Surgery Pgr: [phone] * Maria T Norwood RN - 10/08/2021 4:01 AM CDT Problem: Reduced risk for falls/injury Goal: Reduced Risk for Falls/Injury Outcome: Progressing Problem: Pain - Acute Goal: Achieve acceptable pain level Outcome: Progressing Problem: Venous Thromboembolism - Risk of Goal: Absence of deep venous thrombosis Outcome: Progressing * Zoila Gan RN - 10/07/2021 4:38 PM CDT 10/05/21 1410 Patient Information OB Patient < 19 yrs old No Primary Caregiver Self (Pt lives with her son in [place], [place]. Pt does drive.) Support System Friends;Immediate family (Son.) Baseline ADL's Functional Status Independent Type of Residence Private residence (Apartment - 2 story.) Ambulation Assistance No Bathing/Grooming Assistance No Dressing Assistance No Behavior Oriented Communication Talks;Understands speaking;Understands Maltese Anticipated DC Plan Patient expects to be discharged to: Home * Mera Jenkins RN - 10/07/2021 4:31 PM CDT Problem: Reduced risk for falls/injury Goal: Reduced Risk for Falls/Injury Outcome: Met This Shift Goal: Reduced Risk of Confusion (Acute vs Chronic) Outcome: Met This Shift Goal: Reduced Risk of Symptomatic Depression Outcome: Met This Shift Goal: Reduced Risk of Altered Elimination Outcome: Met This Shift Goal: Reduced Risk of Dizziness/Vertigo/Balance Outcome: Met This Shift Goal: Reduced Risk of Polypharmacy Outcome: Met This Shift Problem: Fluid Volume - Imbalanced Goal: Absence of imbalanced fluid volume signs and symptoms Outcome: Met This Shift Problem: Gas Exchange - Impaired Goal: Adequate oxygenation Outcome: Met This Shift Problem: Infection - Risk of, Septic Shock Goal: Absence of infection signs and symptoms Outcome: Met This Shift Problem: Mental Status - Risk of, Impaired Goal: Mental status restored to baseline Outcome: Met This Shift Problem: Pain - Acute Goal: Achieve acceptable pain level Outcome: Met This Shift Goal: Reduced pain sensation Outcome: Met This Shift Problem: Skin Integrity - Risk of, Impaired Goal: Skin integrity intact Outcome: Met This Shift Problem: Venous Thromboembolism - Risk of Goal: Absence of deep venous thrombosis Outcome: Met This Shift Problem: Discharge Planning Goal: Knowledge of discharge instructions Outcome: Met This Shift * Netta Akers, PT - 10/07/2021 10:58 AM CDTSummary: PT EVAL PT Initial Evaluation Discharge Recommendation: home with assistance (for IADLs, to be provided by son) P/T home health DME equipment recommendation: 2 wheeled walker Activity Recommendation for tobacco cloth reclaimer: up with assist of one and gait belt and 2ww for ambulation; maintain abd precautions with abd binder donned 10/07/21 1057 Therapy Visit Ordering Provider SUZY Carlos PT Received On 10/07/21 Subjective RN ok'd therapy session. Pt received in bed in supine with HOB elevated and agreeable totherapy session. Pt reports she wants to get to the chair, has not been out of bed since admission. Reason for admission Pt is a 76 year old female who presented to an H on 10/02 with syncopal episode and abdominal pain; ABD CT revealed complex splenic laceration with large amount of intraperitoneal blood. Transferred 2 units PRBCs and transferred to [facility] for further management. On 10/03: s/p emergent ex-lap and spenectomy. PMH: A-fib; Rt UL cancer s/p Rt UL lobectomy; HTN; arthritis; Rt ankle fracture and surgery. Orders: Eval and treat; Activity: Up with assist. Verified Two Patient Identifiers Yes Patient consents to therapy Yes Acute Inpatient PT Time Calculation PT Start Time 1028 PT Stop Time 1057 PT Time Calculation (min) 29 min Precautions Lifting Precautions Yes General Precautions Chair Alarm;Bed Alarm;Fall Risk Instructed on Precautions Yes;Verbalizes understanding Skin Integrity abdominal surgical incision vertically Other abdominal binder; abdominal precautions; IV; telemetry; fall risk Prior Function PLOF Comments Upon Eval on 10/07: Pt reports living with her son in a second story condo, elevator access through garage; otherwise 7 steps down with railing to access the elevator through another entrance. Bathroom was walk-in shower, grab bar; standard height toilet seat with vanity nearby to use for support. Pt reports independence with ADLs, mobility, driving, cooking, cleaning. Son works, canassist otherwise. Friends can assist PRN, unsure if she can have 24/7 assist. No AD, no falls. Has a recliner at home. Pain Pain Yes Pain Score 7 Location stomach Interventions Re-direction;Re-positioning Activity Tolerance Limiting Factors to Endurance Acute deconditioning;Fatigue;Nausea;Pain;Weakness Vision - Basic Assessment Current Vision Wears glasses only for reading Vision - Complex Assessment Acuity Able to read clock/calendar on wall without difficulty Additional Comments Pt reports no acute visual changes. Cognition Overall Cognitive Status WFL Arousal/Alertness Appropriate responses to stimuli Attention Span Appears intact Memory Appears intact Orientation Level Oriented X4 Following Commands Follows all commands and directions without difficulty Safety Judgment Good awareness of safety precautions Awareness of Errors Assistance required to identify errors made Deficits Fully aware of deficits Problem Solving Able to problem solve independently Comments Min verbal cues for walker management and proper body positioning. Motor Planning Appears intact Perseveration Not present Initiation Appears intact Sensation Light Touch Partial deficits in the RLE;Partial deficits in the LLE Additional Comments N/T in Stoney toes; sciatica at baseilne RLE Assessment RLE Comment MMT: no resistance applied, pt able to move extremity against gravity in sitting into hip flex, knee ext, ankle DF LLE Assessment LLE Comment MMT: no resistance applied, pt able to move extremity against gravity in sitting into hip flex, knee ext, ankle DF Bed Mobility Supine to Sit Min assist to right Sit to Supine SBA/supervision Other (Comment) pt requires mod verbal and tacile cues for log roll technique to maintain abd precautions during supine to sit transition with min assist required for trunk and BLE, pt demonstrates improved technique and less assist and cues required during sit to supine transition; abd binder donned TRANSFERS Sit to Stand SBA/supervision;Contact guard assist Other (Comment) pt requires BUE support, stands from bed, toilet and chair with improving ability and less assist required with practice; abd binder donned Gait Gait Assistance Contact guard assist;SBA/supervision;With gait belt Assistive Device None;2 Wheeled walker Other (Comment) pt amb 20 feet without AD per pt preference and requires CGA, demonstrates slow carrie, decresaed step length, increased SHIELA, slight unsteadiness and reaches for UE support intermittent; pt provided with 2ww, pt demonstrates improved carrie, step length, balance, SHIELA and progression to SBA; pt requires verbal cues for walker management; no LOB Balance Sitting - Static SBA Sitting - Dynamic SBA Standing - Static SBA;Support of both upper extremities Standing - Dynamic SBA;CGA;Support of both upper extremities Other (Comment) pt demonstrates improved balance with use of 2ww for standing activities; no LOB Patient/Family Training Other (Comment) educated pt regarding fall precautions, abd precautions with binder, importance of out of bed mobility with staff assist and 2ww, use of 2ww, P/T POC, discharge planning including having assist for IADLs and use of 2ww for gait/mobility and pt demonstrates understanding and willigness to comply Assessment Personal Factors/Comorbidities Impacting Care 3-4 personal factors/comorbidities Examination of Body Systems Moderate (3 or more Elements) Objectives of Body Systems Impaired bed mobility;Impaired transfers;Impaired ambulation;Impaired balance;Decreased endurance;Pain with mobility Clinical Presentation of Patient Evolving and changing characteristics Complexity Level of Evaluation Moderate Prognosis Good PT Assess/Eval Other (Comment) Pt is a 76 year old female who was admitted with ABD CT revealing complex splenic laceration with large amount of intraperitoneal blood. On 10/03: s/p emergent ex-lap and spenectomy. Pt is appropriate for skilled P/T during hospitalization to address impairments and functional limitations related to difficulty with bed mobility and requires Neville, difficulty with transfers and requires CGA/SBA, difficulty with gait and requires SBA and 2ww for short distances, impaired standing balance, decreased activity tolerance. At baseline, pt was independent with ADLs, bed mobility, transfers, gait without device. Anticipate pt will require continued P/T with home health services and assist for IADLs and use of 2ww for gait/mobility upon discharge from this hospital to address deficits and reduce fall risk and pt agreeable and reports son and friends can assist. Recommendation PT Recommendation Home with assistance;Home PT PT Equipment Recommended 2 Wheeled walker Plan PT Treatments/Interventions Gait Training;Therapeutic Exercises;Therapeutic Activities;Neuromuscular re-education;Patient/family training PT Frequency 5 times/week PT - Next Appointment 10/07/21 If this is the last treatment note,it will serve as the discharge summary Yes End of Session End of Session Safety Bed alarm set/activated;Call light within reach;Nursing aware of session;Transfer status education Interdisciplinary Collaboration with OT regarding functional status, deficits, discharge planning, with RN regarding functional status, position in bed End of Session Comment pt resting in bed per RN as pt awaiting testing in bed, HOB elevated, needs within reach The below POC to be followed until 10/21/21 at that time POC will be re-assessed to ensure patient ismaking appropriate progression. ??? Pt. will be able to perform supine to/from sitting at EOB with Modified [place] to improvemobility. ??? Pt. will be able to perform sit to/from standing with Modified [place] using wheeled walker to improve independence. ??? Pt. will be able to ambulate 400 feet with Modified [place] using wheeled walker to help improve strength and functional independence. ??? Pt. will be able to maintain static sitting balance for 5-10 minutes with Independent to improve independence. ??? Pt. will be able to maintain dynamic sitting balance on soft surface with Independent to improve functional mobility. ??? Pt. will be able to maintain static standing balance 5-10 minutes with Modified [place] using wheeled walker to improve independence. ??? Pt. will be able to maintain dynamic standing balance during side-stepping L/R and marching with Modified [place] using wheeled walker to improve functional mobility. 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 Pt now demonstrates with weakness, decreased endurance, decreased balance, and decreased activity tolerance impacting her ability to complete ADLs and functional mobility at baseline. Pt would benefit from continued inpt OT in order to address the above stated deficits. Estimate Pt will be able to return home with family/friend assist, use of a 2WW, and OT home health therapy. 10/07/21 1000 Therapy Visit OT Received On 10/07/21 Reason for admission Pt is a 76 year old female who presented to an H on 10/02 with syncopal episode and abdominal pain; ABD CT revealed complex splenic laceration with large amount of intraperitoneal blood. Transferred 2 units PRBCs and transferred to [facility] for further management. On 10/03: s/p emergent ex-lap and spenectomy. PMH: A-fib; Rt UL cancer s/p Rt UL lobectomy; HTN; arthritis; Rt ankle fracture and surgery. Orders: Eval and treat; Activity: Up with assist. Ordering Provider SUZY Carlos Verified Two Patient Identifiers Yes Patient consents to therapy Yes Acute Inpatient OT Time Calculation OT Start Time 1028 OT Stop Time 1057 OT Time Calculation (min) 29 min Precautions Lifting Precautions Yes Other abdominal binder; abdominal precautions; IV; telemetry; fall risk Subjective Subjective RN ok'd session. Pt reports she would like to get up into the chair; has not been out ofbed since coming to the hospital. Prior Function PLOF Comments Upon Eval on 10/07: Pt reports living with her son in a second story condo, elevator access through garage; otherwise 7 steps down with railing to access the elevator through another entrance. Bathroom was walk-in shower, grab bar; standard height toilet seat with vanity nearby to use for support. Pt reports independence with ADLs, mobility, driving, cooking, cleaning. Son works, canassist otherwise. Friends can assist PRN, unsure if she can have 24/7 assist. No AD, no falls. Has a recliner at home. Pain Pain Yes Pain Score 7 Location Stomach Interventions Re-direction;Re-positioning Objective Objective Pt received for OT session supine in bed. Activity Tolerance Limiting Factors to Endurance Acute deconditioning;Fatigue;Nausea;Pain;Weakness Vision - Basic Assessment Current Vision Wears glasses only for reading Vision - Complex Assessment Acuity Able to read clock/calendar on wall without difficulty Additional Comments Pt reports no acute visual changes. Cognition Overall Cognitive Status WFL Arousal/Alertness Appropriate responses to stimuli Attention Span Appears intact Memory Appears intact Orientation Level Oriented X4 Following Commands Follows all commands and directions without difficulty Safety Judgment Good awareness of safety precautions Awareness of Errors Assistance required to identify errors made Deficits Fully aware of deficits Problem Solving Able to problem solve independently Comments Min verbal cues for walker safety and proper body positioning. Overall Extremity Assessment Upper Extremity Stoney UE AROM: WFL; MMT: no formal testing secondary to ABD precautions Hand Function Hand Dominance Right Gross Grasp Functional Coordination Functional Sensation Light Touch Partial deficits in the RLE;Partial deficits in the LLE Additional Comments N/T in Stoney toes; sciatica at baseilne ADL Additional Comments Pt donned Stoney socks seated at EOB with Max assist. Pt attempted hal-area hygeine standing, unable to perform and required Max assist for thoroughness. Bed Mobility Supine to Sit Min assist to right Sit to Supine SBA/supervision Other (Comment) Mod verbal cues for log roll technique Functional Transfers Sit to Stand SBA/supervision;Contact guard assist Bed to Chair SBA/supervision;Contact guard assist Toilet Transfers Supervision;CGA;Grab bars Functional Mobility Pt performed functional transfers in room with SBA/CGA; functional mobility without 2WW with CGA, with 2WW with SBA/CGA. Fatigues easily, requires min verbal cues for walker safety and proper body positioning. Balance Sitting - Static SBA Sitting - Dynamic SBA Standing - Static SBA;CGA;Support of both upper extremities Standing - Dynamic SBA;CGA;Support of both upper extremities Other (Comment) No LOB; improved balance using 2WW for functional mobility; quick fatigue Assessment Occupational Profile and History Complexity Moderate (Expanded) Performance Skills Deficits Bathing/showering;Dressing;Driving and community mobility;Functional mobility;Home establishment and management;Personal hygiene and grooming;Toileting Performance Deficit Level High (5 or more deficits) Clinical Decision Making Moderate (min/mod modifications) Complexity Level of Evaluation Moderate Prognosis Good Recommendation OT Recommendation Home with assistance;Home OT OT Equipment Recommended 2 Wheeled walker Plan OT Treatment/Intervention Self-care training;Therapeutic activities;Patient/family training;Functional activity;Safety OT Frequency 5 times/week OT - Next Appointment 10/07/21 If this is the last treatment note, it will serve as the discharge summary Yes End of Session End of Session Safety Bed alarm set/activated;Call light within reach;Nursing aware of session;Transfer status education The below POC to be followed until 10/21/21 at that time POC will be re-assessed to ensure patient ismaking appropriate progression. ??? Pt will complete dressing with Modified [place] sitting EOB or in chair to increase safetyand independence with ADLs. ??? Pt will complete all grooming and self-feeding with Independent to increased safety and independence with ADLs. ??? Pt will complete ADLs at sink with Modified [place] to increase independence with ADLs. ??? Pt will complete toileting hygiene and clothing management with Modified [place] to increase safety and independence with ADLs. ??? Pt to complete bathing with Modified [place] seated in chair/EOB to increase independence with ADLs. ??? Pt will complete bed mobility performing log roll technique with Independent with HOB flat to increase safety and independence with functional transfers. ??? Pt will complete transfers all surfaces to/from all surfaces with Modified [place] using wheeled walker to increase functional mobility and transfers. ??? Pt will participate within skilled therapy services for 20-30 minutes with 2-3 rest breaks to increase independence with ADLs and functional transfers. ??? Pt will increase dynamic standing balance standing at sink/dressing completing ADLs with Modified [place] with wheeled walker for 20-30 minutes to increase safety and independence with ADLs and functional transfers. ??? Pt will follow Abdominal precautions with no verbal cuing to increase safety awareness and independence with ADLs and functional transfers. * Yocasta Tomlin PharmD - 10/07/2021 8:14 AM CDT Pharmacy Clinical Services: Sign off note Pharmacy has been consulted to dose vancomycin. Pharmacy will now sign off dosing as the drug has been discontinued. Thank you for allowing us the opportunity to participate in the care of Zee Martinez. Please let pharmacy know if we can be of further assistance. 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 - Diet: CLD with supplements - Abdominal exam is soft, appropriately tender, incision is c/d/i. - Replete electrolytes PRN - DVT prophylaxis: SCD. SQ Lovenox Please HALO supervisor telephone answering service resident with any questions. Staff: Dr. Pina Subjective: NAEO, Pain adequately controlled, denies nausea, having acid reflux, OOBTC yesterday Objective: Filed Vitals: 10/07/21 0234 10/07/21 0312 10/07/21 0401 10/07/21 0538 BP: (!) 161/56 (!) 172/56 (!) 152/45 (!) 159/46 Pulse: 72 84 85 83 Resp: 18 Temp: 97.6 ??F (36.4 ??C) TempSrc: Oral SpO2: 95% Weight: Height: Physical Exam: Constitutional: resting comfortably, no acute distress HEENT: normocephalic, clear conjunctivae, neck supple, trachea midline Respiratory: symmetric chest rise, no increased work of breathing Cardiovascular: regular rate Abdomen: soft, appropriately tender, incision closed with lida c/d/i Extremities: no tenderness, no edema Psych: appropriate affect Intake/Output Summary (Last 24 hours) at 10/07/2021 0733 Last data filed at 10/07/2021 0230 Gross per 24 hour Intake 2775 ml Output 875 ml Net 1900 ml Labs: SODIUM Date Value Ref Range Status 10/07/2021 134 (L) 136 - 145 MMOL/L Final POTASSIUM Date Value Ref Range Status 10/07/2021 2.8 (LL) 3.5 - 5.1 MMOL/L Final Comment: Critical Result(s) Called to and read back by: TUNDE DE PAZ at: 06:04:25 10/07/2021 by AMM. CHLORIDE S/P/B Date Value Ref Range Status 10/07/2021 100 98 - 107 MMOL/L Final CO2 Date Value Ref Range Status 10/07/2021 26.0 21.0 - 32.0 MMOL/L Final ANION GAP Date Value Ref Range Status 10/07/2021 8.0 5.0 - 15.0 MMOL/L Final BUN Date Value Ref Range Status 10/07/2021 16 7 - 18 MG/DL Final CREATININE S/P/B Date Value Ref Range Status 10/07/2021 0.69 0.55 - 1.02 MG/DL Final BUN CREATININE RATIO Date Value Ref Range Status 10/02/2021 19.1 6 - 26 Final eGFR Non-Afr. Amer. Date Value Ref Range Status 10/07/2021 84 (L) >90 ML/MIN/1.73 M2 Final eGFR Afr. Amer. Date Value Ref Range Status 10/07/2021 >90 >90 ML/MIN/1.73 M2 Final GLUCOSE Date Value Ref Range Status 10/07/2021 93 74 - 106 MG/DL Final CALCIUM Date Value Ref Range Status 10/07/2021 8.4 (L) 8.5 - 10.1 MG/DL Final Recent Labs Lab 10/02/21 1815 10/02/21 1815 10/03/21 0208 10/03/21 0512 10/03/21 0720 10/03/21 1106 10/04/21 0345 10/05/21 0456 10/06/21 0500 WBC 6.9 < > 6.2 < > 10.1 < > 25.0* 42.0* 25.0* RBC 2.70* < > 2.72* < > 2.65* < > 3.52* 3.43* 3.37* HGB 7.9* < > 7.7* < > 7.4* < > 9.7* 9.3* 9.4* HCT 24.8* < > 23.6* < > 22.5* < > 28.6* 28.5* 28.7* MCV 91.9 < > 86.8 < > 84.9 < > 81.3 83.1 85.2 MCH 29.3 < > 28.3 < > 27.9 < > 27.6 27.1 27.9 MCHC 31.9 < > 32.6* < > 32.9* < > 33.9 32.6* 32.8* PLT 229 < > 92* < > 153 < > 129* 123* 136* RDW 13.8 < > 15.7* < > 17.7* < > 18.2* 17.9* 17.7* MPV 11.2 < > 10.8* < > 10.9* < > 10.8* 10.5* 11.5* PERNEU 51.7 -- -- -- -- -- -- -- -- PERLYM 25.5 -- -- -- -- -- -- -- -- PERMON 21.5* -- -- -- -- -- -- -- -- NEUC 3.56 < > 3.58 -- 6.67 -- 18.25* -- -- [facility] 1.76 < > 0.83 -- 0.51* -- 1.00 -- -- MONOC -- -- 1.67* -- 2.93* -- 5.75* -- -- EOSC -- -- 0.01 -- 0.00 -- 0.00 -- -- BASOC -- -- 0.01 -- 0.00 -- 0.00 -- -- < > = values in this interval not displayed. Ayden Moore MD 10/07/2021 Cosigned by Luis Pina MD at 11/06/2021 9:46 PM CDT Associated attestation - Luis Pina MD - 11/06/2021 9:46 PM CDT [facility] General Surgery Attending Attestation--POD#4 s/p splenectomy I saw and examined Zee Martinez in her room ([id number]) at 15:45 today (10/07), have reviewed Dr. Moore' progress note above and concur with his findings, impression and recommendations as documented. Please see above/below for additional details. Briefly, Zee Martinez is now POD#4 s/p splenectomy for colonoscopic trauma. Stable overnight. Downgraded from ICU to 7th floor 10/06. NGT removed; tolerating CLD started by resident team this AM. Wound is C/D/I w/o erythema nor drainage. H/H stable (hct 28.2). No e/o bleeding. Continue CLD for now. Luis Pina MD [facility] General Surgery Pgr: [phone] * Maria T Norwood RN - 10/07/2021 3:33 AM CDT Problem: Reduced risk for falls/injury Goal: Reduced Risk for Falls/Injury Outcome: Progressing Problem: Infection - Risk of, Central Venous Catheter-Associated Bloodstream Infection Goal: Absence of Central Venous Catheter Associated Bloodstream Infection Signs and Symptoms Outcome: Completed Problem: Infection - Risk of, Urinary Catheter-Associated Urinary Tract Infection Goal: Absence of Urinary Catheter Associated Urinary Tract (UTI) Infection Signs and Symptoms Outcome: Completed * Jorge Guzman MD - 10/06/2021 12:34 PM CDT Patient placed back on prophylaxis overnight due to systolic blood pressure greater than 160. She is passing flatus. Denies any problems with nausea or vomiting. On exam, she is afebrile and her vital signs are normal and stable. Incision is clean dry and intact. Appropriate incisional tenderness. White blood cell count continues to be elevated. Plan: -Increased dose of Coreg this morning. We will add in hydralazine for systolic blood pressure greater than 160. -The general surgery team has removed her NG and started her on clears and popsicles. -We will defer management of the white blood cell count (need for CT scan for possible intra-abdominal abscesses) to the general surgery team. -Stable for transfer to the floor. Jorge Guzman MD, [facility] Trauma and Acute Care Surgery * Manny Mendoza, PharmD - 10/06/2021 11:03 AM CDT Vancomycin Pharmacokinetic Progress Note Day 1 of therapy Zee Martinez is a 76-year-old female for which pharmacy has been consulted to dose vancomycin for Pneumonia. Other antibiotics ordered include metronidazole & metronidazole. Historical vancomycin use: N/A Allergies: Allergies Allergen Reactions ??? Penicillins Hives Height: 5' 3 (1.6 m) Weight: 65.3 kg (143 lb 15.4 oz) Body mass index is 25.5 kg/m??. Temp (24 hr max): Temp Av.8 ??F (37.7 ??C) Min: 98.4 ??F (36.9 ??C) Max: 100.2 ??F (37.9 ??C) Today's labs and vitals: Lab Results Component Value Date/Time WBC 25.0 (H) 10/06/2021 05:00 AM WBC 42.0 (H) 10/05/2021 04:56 AM WBC 25.0 (H) 10/04/2021 03:45 AM WBC 10.1 10/03/2021 07:20 AM WBC 9.6 10/03/2021 05:12 AM Lab Results Component Value Date/Time CR 0.62 10/06/2021 05:00 AM CR 0.81 10/05/2021 04:56 AM CR 0.86 10/04/2021 03:45 AM CR 0.93 10/03/2021 05:12 AM CR 0.85 10/03/2021 02:08 AM CrCl = estimated creatinine clearance is 69.1 mL/min (based on SCr of 0.62 mg/dL). Intake/Output Summary (Last 24 hours) at 10/06/2021 1103 Last data filed at 10/06/2021 1000 Gross per 24 hour Intake 1241 ml Output 1790 ml Net -549 ml Pertinent Cultures: Date Drawn Site Organism Pertinent Sensitivity 10/03 Resp PCR Negative 10/04 BCx2 NGTD Levels: Date Time Level AUC Dose Comments Assessment: Zee Martinez is a 76-year-old female who is currently receiving vancomycin. AUC goal is 400 - 600 Current AUC level is Pending Renal function is Stable; S.Cr range 0.62-0.81, S.cR 0.62 today Plan: Antibiotic Plan: Start vancomycin 1500 mg q24 hours started @0800 (est AUC 486) Next level due: 10/07/21 @ 0600 Pharmacy will continue to follow cultures, clinical status, and appropriateness of therapy. Thank you for the consult. Pharmacy Consult per Dr. 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 - CXR shows possible PNA/effusion in left lower lobe - On antibiotics per ICU - Pain adequately controlled on current regimen. - Diet: NPO with NG tube to LIS. OK for ice chips. Will discuss removal with attending. - Abdominal exam is soft, appropriately tender, incision is c/d/i. - Lockwood catheter in place. Monitor I&O - mIVF at 75 mL/HR - Replete electrolytes PRN - DVT prophylaxis: SCD. SQ Lovenox Please HALO supervisor telephone answering service resident with any questions. Staff: Dr. Pina Subjective: NAEO, Pain adequately controlled, denies nausea, tolerating NG. Objective: Filed Vitals: 10/06/21 0615 10/06/21 0630 10/06/21 0645 10/06/21 0700 BP: (!) 152/66 (!) 114/101 (!) 156/68 (!) 165/74 Pulse: 84 88 84 75 Resp: Temp: 100 ??F (37.8 ??C) 99.7 ??F (37.6 ??C) 99.9 ??F (37.7 ??C) 99.9 ??F (37.7 ??C) TempSrc: SpO2: 98% 96% 96% 97% Weight: Height: Physical Exam: Constitutional: resting comfortably, no acute distress HEENT: normocephalic, clear conjunctivae, neck supple, trachea midline, NG in place Respiratory: symmetric chest rise, no increased work of breathing Cardiovascular: regular rate Abdomen: soft, appropriately tender, incision closed with lida c/d/i Extremities: no tenderness, no edema Psych: appropriate affect Intake/Output Summary (Last 24 hours) at 10/06/2021 0726 Last data filed at 10/06/2021 0600 Gross per 24 hour Intake 1211 ml Output 1795 ml Net -584 ml Labs: SODIUM Date Value Ref Range Status 10/06/2021 135 (L) 136 - 145 MMOL/L Final POTASSIUM Date Value Ref Range Status 10/06/2021 2.8 (LL) 3.5 - 5.1 MMOL/L Final Comment: Critical Result(s) Called to and read back by: TUNDE NEAL at: 06:05:24 10/06/2021 by KAMILAH. CHLORIDE S/P/B Date Value Ref Range Status 10/06/2021 100 98 - 107 MMOL/L Final CO2 Date Value Ref Range Status 10/06/2021 30.3 21.0 - 32.0 MMOL/L Final ANION GAP Date Value Ref Range Status 10/06/2021 4.7 (L) 5.0 - 15.0 MMOL/L Final BUN Date Value Ref Range Status 10/06/2021 15 7 - 18 MG/DL Final CREATININE S/P/B Date Value Ref Range Status 10/06/2021 0.62 0.55 - 1.02 MG/DL Final BUN CREATININE RATIO Date Value Ref Range Status 10/02/2021 19.1 6 - 26 Final eGFR Non-Afr. Amer. Date Value Ref Range Status 10/06/2021 87 (L) >90 ML/MIN/1.73 M2 Final eGFR Afr. Amer. Date Value Ref Range Status 10/06/2021 >90 >90 ML/MIN/1.73 M2 Final GLUCOSE Date Value Ref Range Status 10/06/2021 89 74 - 106 MG/DL Final CALCIUM Date Value Ref Range Status 10/06/2021 8.7 8.5 - 10.1 MG/DL Final Recent Labs Lab 10/02/21 1815 10/02/21 1815 10/03/21 0208 10/03/21 0512 10/03/21 0720 10/03/21 1106 10/04/21 0345 10/05/21 0456 10/06/21 0500 WBC 6.9 < > 6.2 < > 10.1 < > 25.0* 42.0* 25.0* RBC 2.70* < > 2.72* < > 2.65* < > 3.52* 3.43* 3.37* HGB 7.9* < > 7.7* < > 7.4* < > 9.7* 9.3* 9.4* HCT 24.8* < > 23.6* < > 22.5* < > 28.6* 28.5* 28.7* MCV 91.9 < > 86.8 < > 84.9 < > 81.3 83.1 85.2 MCH 29.3 < > 28.3 < > 27.9 < > 27.6 27.1 27.9 MCHC 31.9 < > 32.6* < > 32.9* < > 33.9 32.6* 32.8* PLT 229 < > 92* < > 153 < > 129* 123* 136* RDW 13.8 < > 15.7* < > 17.7* < > 18.2* 17.9* 17.7* MPV 11.2 < > 10.8* < > 10.9* < > 10.8* 10.5* 11.5* PERNEU 51.7 -- -- -- -- -- -- -- -- PERLYM 25.5 -- -- -- -- -- -- -- -- PERMON 21.5* -- -- -- -- -- -- -- -- NEUC 3.56 < > 3.58 -- 6.67 -- 18.25* -- -- LYMC 1.76 < > 0.83 -- 0.51* -- 1.00 -- -- MONOC -- -- 1.67* -- 2.93* -- 5.75* -- -- EOSC -- -- 0.01 -- 0.00 -- 0.00 -- -- BASOC -- -- 0.01 -- 0.00 -- 0.00 -- -- < > = values in this interval not displayed. MADIE JAIME MD 10/06/2021 Cosigned by Luis Pina MD at 11/06/2021 9:41 PM CDT Associated attestation - Luis Pina MD - 11/06/2021 9:41 PM CDT [facility] General Surgery Attending Attestation--POD#3 s/p splenectomy I saw and examined Zee Martinez in her room ([id number]) at noon today (10/06) with Mr. Barahona ([facility]), havereviewed Dr. Gill's progress note above and concur with her findings, impression and recommendations as documented. Please see above/below for additional details. Briefly, Zee Martinez is now POD#3 s/p splenectomy for colonoscopic trauma. Stable overnight. Downgraded from ICU to 7th floor yesterday. Wound is C/D/I w/o erythema nor drainage. H/H stable (hct 28.7). No e/o bleeding. Appreciate ICU service management. [facility] Luis Pina MD [facility] General Surgery Pgr: [phone] * Ok Bruner RN - 10/06/2021 5:25 AM CDT Problem: Infection - Risk of, Central Venous Catheter-Associated Bloodstream Infection Goal: Absence of Central Venous Catheter Associated Bloodstream Infection Signs and Symptoms Outcome: Progressing Problem: Infection - Risk of, Urinary Catheter-Associated Urinary Tract Infection Goal: Absence of Urinary Catheter Associated Urinary Tract (UTI) Infection Signs and Symptoms Outcome: Progressing Problem: Reduced risk for falls/injury Goal: Reduced Risk for Falls/Injury Outcome: Progressing Goal: Reduced Risk of Confusion (Acute vs Chronic) Outcome: Progressing Goal: Reduced Risk of Symptomatic Depression Outcome: Progressing Goal: Reduced Risk of Altered Elimination Outcome: Progressing Goal: Reduced Risk of Dizziness/Vertigo/Balance Outcome: Progressing Goal: Reduced Risk of Polypharmacy Outcome: Progressing Problem: Fluid Volume - Imbalanced Goal: Absence of imbalanced fluid volume signs and symptoms Outcome: Progressing Problem: Gas Exchange - Impaired Goal: Adequate oxygenation Outcome: Progressing Problem: Infection - Risk of, Septic Shock Goal: Absence of infection signs and symptoms Outcome: Progressing Problem: Mental Status - Risk of, Impaired Goal: Mental status restored to baseline Outcome: Progressing Problem: Pain - Acute Goal: Achieve acceptable pain level Outcome: Progressing Goal: Reduced pain sensation Outcome: Progressing Problem: Skin Integrity - Risk of, Impaired Goal: Skin integrity intact Outcome: Progressing Problem: Venous Thromboembolism - Risk of Goal: Absence of deep venous thrombosis Outcome: Progressing Problem: Discharge Planning Goal: Knowledge of discharge instructions Outcome: Progressing * Corrie Phelps RN - 10/05/2021 2:31 PM CDTSummary: NURSING CARE PLAN Problem: Reduced risk for falls/injury Goal: Reduced Risk for Falls/Injury 10/05/2021 1431 by Corrie Phelps RN Outcome: Progressing 10/05/2021 1430 by Corrie Phelps RN Outcome: Progressing Goal: Reduced Risk of Confusion (Acute vs Chronic) 10/05/2021 1431 by Corrie Phelps RN Outcome: Progressing 10/05/2021 1430 by Corrie Phelps RN Outcome: Progressing Goal: Reduced Risk of Symptomatic Depression 10/05/2021 1431 by Corrie Phelps RN Outcome: Progressing 10/05/2021 1430 by Corrie Phelps RN Outcome: Progressing Goal: Reduced Risk of Altered Elimination 10/05/2021 1431 by Corrie Phelps RN Outcome: Progressing 10/05/2021 1430 by Corrie Phelps RN Outcome: Progressing Goal: Reduced Risk of Dizziness/Vertigo/Balance 10/05/2021 1431 by Corrie Phelps RN Outcome: Progressing 10/05/2021 1430 by Corrie Phelps RN Outcome: Progressing Goal: Reduced Risk of Polypharmacy 10/05/2021 1431 by Corrie Phelps RN Outcome: Progressing 10/05/2021 1430 by Corrie Phelps RN Outcome: Progressing Problem: Infection - Risk of, Central Venous Catheter-Associated Bloodstream Infection Goal: Absence of Central Venous Catheter Associated Bloodstream Infection Signs and Symptoms 10/05/2021 1431 by Corrie Phelps RN Outcome: Progressing 10/05/2021 1430 by Corrie Phelps RN Outcome: Progressing Problem: Infection - Risk of, Urinary Catheter-Associated Urinary Tract Infection Goal: Absence of Urinary Catheter Associated Urinary Tract (UTI) Infection Signs and Symptoms 10/05/2021 1431 by Corrie Phelps RN Outcome: Progressing 10/05/2021 1430 by Corrie Phelps RN Outcome: Progressing Problem: Fluid Volume - Imbalanced Goal: Absence of imbalanced fluid volume signs and symptoms 10/05/2021 1431 by Corrie Phelps RN Outcome: Progressing 10/05/2021 1430 by Corrie Phelps RN Outcome: Progressing Problem: Gas Exchange - Impaired Goal: Adequate oxygenation 10/05/2021 1431 by Corrie Phelps RN Outcome: Progressing 10/05/2021 1430 by Corrie Phelps RN Outcome: Progressing Problem: Infection - Risk of, Septic Shock Goal: Absence of infection signs and symptoms 10/05/2021 1431 by Corrie Phelps RN Outcome: Progressing 10/05/2021 1430 by Corrie Phelps RN Outcome: Progressing Problem: Mental Status - Risk of, Impaired Goal: Mental status restored to baseline 10/05/2021 1431 by Corrie Phelps RN Outcome: Progressing 10/05/2021 1430 by Corrie Phelps RN Outcome: Progressing Problem: Pain - Acute Goal: Achieve acceptable pain level 10/05/2021 1431 by Corrie Phelps RN Outcome: Progressing 10/05/2021 1430 by Corrie Phelps RN Outcome: Progressing Goal: Reduced pain sensation 10/05/2021 1431 by Corrie Phelps RN Outcome: Progressing 10/05/2021 1430 by Corrie Phelps RN Outcome: Progressing Problem: Skin Integrity - Risk of, Impaired Goal: Skin integrity intact 10/05/2021 1431 by Corrie Phelps RN Outcome: Progressing 10/05/2021 1430 by Corrie Phelps RN Outcome: Progressing Problem: Venous Thromboembolism - Risk of Goal: Absence of deep venous thrombosis 10/05/2021 1431 by Corrie Phelps RN Outcome: Progressing 10/05/2021 1430 by Corrie Phelps RN Outcome: Progressing Problem: Discharge Planning Goal: Knowledge of discharge instructions 10/05/2021 1431 by Corrie Phelps RN Outcome: Progressing 10/05/2021 1430 by Corrie Phelps RN Outcome: Progressing * Jorge Guzman MD - 10/05/2021 11:24 AM CDT Patient is awake and alert. Complaining of pain isolated to her abdominal incision. Denies nausea or vomiting. Denies flatus or bowel movement. On exam. She was febrile to 101.3 and antibiotics were started overnight. Her abdomen is soft and nondistended. Appropriate incisional tenderness. Dressings are clean dry and intact. Plan: -Once weaned off the Cleviprex drip stable for transfer to floor. -The general surgery service is monitoring her n.p.o. and her chemical DVT prophylaxis -We will follow while in the ICU. Jorge Guzman MD, [facility] Trauma and Acute Care Surgery * Manny Mendoza, PharmD - 10/05/2021 7:12 AM CDT Vancomycin Pharmacokinetic Progress Note Day 0 of therapy Zee Martinez is a 76-year-old female for which pharmacy has been consulted to dose vancomycin for Pneumonia. Other antibiotics ordered include metronidazole & metronidazole. Historical vancomycin use: N/A Allergies: Allergies Allergen Reactions ??? Penicillins Hives Height: 5' 3 (1.6 m) Weight: 65.3 kg (143 lb 15.4 oz) Body mass index is 25.5 kg/m??. Temp (24 hr max): Temp Av.9 ??F (38.3 ??C) Min: 100 ??F (37.8 ??C) Max: 102.2 ??F (39 ??C) Today's labs and vitals: Lab Results Component Value Date/Time WBC 42.0 (H) 10/05/2021 04:56 AM WBC 25.0 (H) 10/04/2021 03:45 AM WBC 10.1 10/03/2021 07:20 AM WBC 9.6 10/03/2021 05:12 AM WBC 6.2 10/03/2021 02:08 AM Lab Results Component Value Date/Time CR 0.81 10/05/2021 04:56 AM CR 0.86 10/04/2021 03:45 AM CR 0.93 10/03/2021 05:12 AM CR 0.85 10/03/2021 02:08 AM CR 1.10 (H) 10/02/2021 06:15 PM CrCl = estimated creatinine clearance is 52.9 mL/min (based on SCr of 0.81 mg/dL). Intake/Output Summary (Last 24 hours) at 10/05/2021 0712 Last data filed at 10/05/2021 0625 Gross per 24 hour Intake 1340 ml Output 1250 ml Net 90 ml Pertinent Cultures: Date Drawn Site Organism Pertinent Sensitivity 10/03 Resp PCR Negative 10/04 BCx2 NGTD Levels: Date Time Level AUC Dose Comments Assessment: Zee Martinez is a 76-year-old female who is currently receiving vancomycin. AUC goal is 400 - 600 Current AUC level is Pending Renal function is Stable Plan: Antibiotic Plan: Start vancomycin 1500 mg q24 hours started @0800 (est AUC 561) Next level due: 10/07/21 @ 0600 Pharmacy will continue to follow cultures, clinical status, and appropriateness of therapy. Thank you for the consult. Pharmacy Consult per Dr. Aurelio MENDOZA, PharmD Phone: [phone] 10/05/2021 7:12 AM * Luis Pina MD - 10/05/2021 6:56 AM CDT Surgery progress note Subjective: NAEO, Pain adequately controlled, denies nausea, tolerating NG. Objective: Filed Vitals: 10/05/21 0200 10/05/21 0300 10/05/21 0400 10/05/21 0500 BP: 117/45 124/42 130/61 120/82 Pulse: 80 86 81 86 Resp: 16 18 Temp: 100.6 ??F (38.1 ??C) 100.4 ??F (38 ??C) 100.2 ??F (37.9 ??C) 100.4 ??F (38 ??C) TempSrc: SpO2: 98% 97% 96% 95% Weight: Height: Physical Exam: Constitutional: resting comfortably, no acute distress HEENT: normocephalic, clear conjunctivae, neck supple, trachea midline Respiratory: symmetric chest rise, no increased work of breathing Cardiovascular: regular rate Abdomen: soft, appropriately tender, incisions covered without strikethrough Extremities: no tenderness, no edema Psych: appropriate affect Intake/Output Summary (Last 24 hours) at 10/05/2021 0656 Last data filed at 10/05/2021 0625 Gross per 24 hour Intake 1340 ml Output 1250 ml Net 90 ml Labs: SODIUM Date Value Ref Range Status 10/05/2021 135 (L) 136 - 145 MMOL/L Final POTASSIUM Date Value Ref Range Status 10/05/2021 2.9 (LL) 3.5 - 5.1 MMOL/L Final Comment: Critical Result(s) Called to and read back by: TUNDE MEHTA at: 05:56:38 10/05/2021 by KAMILAH. CHLORIDE S/P/B Date Value Ref Range Status 10/05/2021 101 98 - 107 MMOL/L Final CO2 Date Value Ref Range Status 10/05/2021 29.5 21.0 - 32.0 MMOL/L Final ANION GAP Date Value Ref Range Status 10/05/2021 4.5 (L) 5.0 - 15.0 MMOL/L Final BUN Date Value Ref Range Status 10/05/2021 15 7 - 18 MG/DL Final CREATININE S/P/B Date Value Ref Range Status 10/05/2021 0.81 0.55 - 1.02 MG/DL Final BUN CREATININE RATIO Date Value Ref Range Status 10/02/2021 19.1 6 - 26 Final eGFR Non-Afr. Amer. Date Value Ref Range Status 10/05/2021 70 (L) >90 ML/MIN/1.73 M2 Final eGFR Afr. Amer. Date Value Ref Range Status 10/05/2021 81 (L) >90 ML/MIN/1.73 M2 Final GLUCOSE Date Value Ref Range Status 10/05/2021 112 (H) 74 - 106 MG/DL Final CALCIUM Date Value Ref Range Status 10/05/2021 8.7 8.5 - 10.1 MG/DL Final Recent Labs Lab 10/02/21 1815 10/02/21 1815 10/03/21 0208 10/03/21 0512 10/03/21 0720 10/03/21 1106 10/03/21 2103 10/04/21 0345 10/05/21 0456 WBC 6.9 < > 6.2 < > 10.1 -- -- 25.0* 42.0* RBC 2.70* < > 2.72* < > 2.65* -- -- 3.52* 3.43* HGB 7.9* < > 7.7* < > 7.4* < > 10.5* 9.7* 9.3* HCT 24.8* < > 23.6* < > 22.5* < > 30.8* 28.6* 28.5* MCV 91.9 < > 86.8 < > 84.9 -- -- 81.3 83.1 MCH 29.3 < > 28.3 < > 27.9 -- -- 27.6 27.1 MCHC 31.9 < > 32.6* < > 32.9* -- -- 33.9 32.6* PLT 229 < > 92* < > 153 -- -- 129* 123* RDW 13.8 < > 15.7* < > 17.7* -- -- 18.2* 17.9* MPV 11.2 < > 10.8* < > 10.9* -- -- 10.8* 10.5* PERNEU 51.7 -- -- -- -- -- -- -- -- PERLYM 25.5 -- -- -- -- -- -- -- -- PERMON 21.5* -- -- -- -- -- -- -- -- NEUC 3.56 < > 3.58 -- 6.67 -- -- 18.25* -- LYMC 1.76 < > 0.83 -- 0.51* -- -- 1.00 -- MONOC -- -- 1.67* -- 2.93* -- -- 5.75* -- EOSC -- -- 0.01 -- 0.00 -- -- 0.00 -- BASOC -- -- 0.01 -- 0.00 -- -- 0.00 -- < > = values in this interval not displayed. 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 - CXR shows possible PNA/effusion in left lower lobe - Pain adequately controlled on current regimen. - Diet: NPO with NG tube. OK for ice chips - Abdominal exam - Lockwood catheter in place. Monitor I&O - mIVF at 75 mL/HR - Replete electrolytes PRN - DVT prophylaxis: SCD. OK to begin SQ Lovenox Please HALO supervisor telephone answering service resident with any questions. Staff: Dr. Tushar JAIME MD 10/05/2021 [facility] General Surgery Attending Attestation--POD#2 s/p splenectomy ?? I saw and examined Zee Martinez in her room (ICU-A 11) at 20:40 today (10/05) with Dr. Lim, have reviewed Dr. Gill's progress note above and concur with her findings, impression and recommendations as documented. Please see above/below for additional details. ?? Briefly, Zee Martinez is POD#2 s/p splenectomy for colonoscopic trauma. Stable overnight. Still in ICU for hypertensive management on Cleviprex. Bandage C/D/I w/o strikethrough. H/H stable No e/o bleeding. Appreciate ICU service management. Will be happy to resume care once downgraded from ICU. ?? Luis Pina MD [facility] General Surgery Pgr: [phone] ? LUIS PINA MD * Jorge Guzman MD - 10/04/2021 2:44 PM CDT Patient's hemoglobin is stable postoperatively. She has been hypertensive and on a Cleviprex drip due to uncontrolled hypertension with oral antihypertensive medications. Speech therapy is holding off with a swallow study until the patient is removed from an n.p.o. status. On exam, the patient is afebrile and hypertensive. She is awake and alert. She has appropriate incisional tenderness. Plan: -We will discuss with cardiology (Dr. Vasquez) about starting a oral beta- farideh to get the patient off the IV drip. Once off the IV drip she will be stable for transfer to the floor. -We will discuss need for NG and n.p.o. status with her primary surgical team. -Spleen vaccines have been ordered. -We will follow until transfer from the critical care unit Jorge Guzman MD, [facility] Trauma and Acute Care Surgery * DEON Clarke - 10/04/2021 9:16 AM CDT Speech Pathology Note Speech pathology received order for initial evaluation this date. Completed clinical chart review and discussed with surgical services assistant, Dr. Jaime, who confirmed plan for patient to remain NPO this date and to hold on swallowing evaluation. Speech pathology will sign-off but please re-consult oncemedically appropriate for p.o. intake. 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 - Pain adequately controlled on current regimen. - Diet: NPO with NG tube - Abdominal exam - Lockwood catheter in place. Monitor I&O - mIVF at 75 mL/HR - Replete electrolytes PRN - DVT prophylaxis: SCD Please HALO supervisor telephone answering service resident with any questions. Staff: Dr. Pina Subjective: NAEO, Pain adequately controlled, denies nausea, tolerating NG. Objective: Filed Vitals: 10/04/21 0300 10/04/21 0400 10/04/21 0500 10/04/21 0600 BP: (!) 143/57 (!) 143/56 132/88 112/89 Pulse: 96 92 82 92 Resp: 16 17 17 (!) 34 Temp: 100.2 ??F (37.9 ??C) 100 ??F (37.8 ??C) 100 ??F (37.8 ??C) 100 ??F (37.8 ??C) TempSrc: Bladder Bladder SpO2: 98% 98% 98% 94% Weight: Height: Physical Exam: Constitutional: resting comfortably, no acute distress HEENT: normocephalic, clear conjunctivae, neck supple, trachea midline Respiratory: symmetric chest rise, no increased work of breathing Cardiovascular: regular rate Abdomen: soft, appropriately tender, incisions covered without strikethrough Extremities: no tenderness, no edema Psych: appropriate affect Intake/Output Summary (Last 24 hours) at 10/04/2021 0657 Last data filed at 10/04/2021 0622 Gross per 24 hour Intake 3968 ml Output 2805 ml Net 1163 ml Labs: SODIUM Date Value Ref Range Status 10/04/2021 136 136 - 145 MMOL/L Final POTASSIUM Date Value Ref Range Status 10/04/2021 3.3 (L) 3.5 - 5.1 MMOL/L Final CHLORIDE S/P/B Date Value Ref Range Status 10/04/2021 106 98 - 107 MMOL/L Final CO2 Date Value Ref Range Status 10/04/2021 27.3 21.0 - 32.0 MMOL/L Final ANION GAP Date Value Ref Range Status 10/04/2021 2.7 (L) 5.0 - 15.0 MMOL/L Final BUN Date Value Ref Range Status 10/04/2021 13 7 - 18 MG/DL Final CREATININE S/P/B Date Value Ref Range Status 10/04/2021 0.86 0.55 - 1.02 MG/DL Final BUN CREATININE RATIO Date Value Ref Range Status 10/02/2021 19.1 6 - 26 Final eGFR Non-Afr. Amer. Date Value Ref Range Status 10/04/2021 65 (L) >90 ML/MIN/1.73 M2 Final eGFR Afr. Amer. Date Value Ref Range Status 10/04/2021 76 (L) >90 ML/MIN/1.73 M2 Final GLUCOSE Date Value Ref Range Status 10/04/2021 143 (H) 74 - 106 MG/DL Final CALCIUM Date Value Ref Range Status 10/04/2021 8.3 (L) 8.5 - 10.1 MG/DL Final Recent Labs Lab 10/02/21 1815 10/02/21 1815 10/03/21 0208 10/03/21 0208 10/03/21 0512 10/03/21 0512 10/03/21 0720 10/03/21 1106 10/03/21 1517 10/03/21 2103 10/04/21 0345 WBC 6.9 < > 6.2 < > 9.6 -- 10.1 -- -- -- 25.0* RBC 2.70* < > 2.72* < > 2.97* -- 2.65* -- -- -- 3.52* HGB 7.9* < > 7.7* < > 8.5* < > 7.4* < > 11.1* 10.5* 9.7* HCT 24.8* < > 23.6* < > 25.7* < > 22.5* < > 32.2* 30.8* 28.6* MCV 91.9 < > 86.8 < > 86.5 -- 84.9 -- -- -- 81.3 MCH 29.3 < > 28.3 < > 28.6 -- 27.9 -- -- -- 27.6 MCHC 31.9 < > 32.6* < > 33.1 -- 32.9* -- -- -- 33.9 PLT 229 < > 92* < > 158 -- 153 -- -- -- 129* RDW 13.8 < > 15.7* < > 15.4* -- 17.7* -- -- -- 18.2* MPV 11.2 < > 10.8* < > 10.8* -- 10.9* -- -- -- 10.8* PERNEU 51.7 -- -- -- -- -- -- -- -- -- -- PERLYM 25.5 -- -- -- -- -- -- -- -- -- -- PERMON 21.5* -- -- -- -- -- -- -- -- -- -- NEUC 3.56 < > 3.58 -- -- -- 6.67 -- -- -- 18.25* LYMC 1.76 < > 0.83 -- -- -- 0.51* -- -- -- 1.00 MONOC -- -- 1.67* -- -- -- 2.93* -- -- -- 5.75* EOSC -- -- 0.01 -- -- -- 0.00 -- -- -- 0.00 BASOC -- -- 0.01 -- -- -- 0.00 -- -- -- 0.00 < > = values in this interval not displayed. MADIE JAIME MD 10/04/2021 Cosigned by Luis Pina MD at 10/05/2021 12:00 PM CDT Associated attestation - Luis Pina MD - 10/05/2021 12:00 PM CDT [facility] General Surgery Attending Attestation--POD#1 s/p splenectomy I saw and examined Zee Martinez in her room (ICU-A 11) at 16:30 today (10/04) with Dr. Moore, have reviewed Dr. Villegas's progress note above and concur with her findings, impression and recommendations as documented. Please see above/below for additional details. Briefly, Zee Martinez is POD#1 s/p splenectomy for colonoscopic trauma. Stable overnight. Still in ICU for hypertensive management on Cleviprex. Bandage C/D/I w/o strikethrough. H/H stable No e/o bleeding. Appreciate ICU service management. Will be happy to resume care once downgraded from ICU. Luis Pina MD [facility] General Surgery Pgr: [phone] LUIS PINA MD * Jorge Guzman MD - 10/03/2021 1:26 PM CDT Patient was seen and examined by me postoperatively. She was transferred from the operating room to the ICU intubated due to concerns for low hematocrit. Since then her hemoglobin and hematocrit have been stable. On exam, she is afebrile and hypertensive (patient takes diltiazem and hydrochlorothiazide at home-unknown when her last dose was administered). She will open her eyes to verbal stimulation and follows commands with all 4 extremities. Her dressing is clean dry and intact. Plan: -we will check every 6 hemoglobin and hematocrit. -Wean sedation to off and extubate as tolerated -Based on patient's swallowing ability will likely start a diet and transfer to the floor tomorrow. -Home medications started as appropriate. -We will follow Jorge Guzman MD, FACS [facility] Trauma and Acute Care Surgery documented in this encounter H&P Notes * RAYA Castillo - 10/03/2021 4:22 AM CDT Images from the original note were not included. HISTORY & PHYSICAL SURGICAL CRITICAL CARE SERVICE RAYA CASTILLO, 10/03/2021, 4:22 AM [facility] ACUTE CARE SURGERY SERVICE: EMERGENCY SURGERY, TRAUMA, SURGICAL CRITICAL CARE [address] [place] [id number] TO CONTACT PROVIDER: Advanced Practice Provider: [id number] or [id number] Emergency Surgery MD: [id number] Trauma Surgery MD: [id number] Physicians: Jorge Guzman MD, FACS; Slade Carey MD; Miguel Armas MD; Darrell Mabry MD, MPH, FACS, [facility]; Syd Gold MD, FACS Advanced Practice Providers: Hui Carlos APRN; Mendel Blackburn PA-C; Ravi Cueto PA-C; Maddy Butterfield PA-C; Joann Davies APRN; Melanie Red PA-C; Diana Cloud APRN Name: Zee Martinez Date of : 1945 Room/Bed: EXAM J/J Date: 10/03/2021 Time: 4:22 AM CHIEF COMPLAINT: Abdominal pain HOSPITAL DIAGNOSES: Spontaneous rupture of spleen Myasthenia gravis (CMS/HCC) Paroxysmal atrial fibrillation (CMS/HCC) HTN (hypertension) HISTORY OF PRESENT ILLNESS: Zee Martinez is a 76-year-old female who presented with Abdominal pain [...] During the day of 10/01, she was sitting down at a table to eat when she developed LUQ pain which she attributed it to GERD. She continued to have worsening pain and weakness so she presented to [facility] in [place] ER where she was found to be anemic and CT scan found a high grade s pleen laceration. Patient denies any falls or trauma that may have contributed to her problem. Patient also reports taking NSAIDs daily for her chronic back pain. Initial Hgb @ 1815 in the ER was 7.9, Plt 229. Patient was accepted as a transfer by [facility] General Surgery Dr Pina to the ER at [facility]. Patient was reproted given KCentra at the OSH and transfused 2 units PRBC and 1 unit FFP prior to transfer. Repeat Hgb @ 0208 was 7.7, PLT 92, after initial transfusion. Patient was transfused an additional 2 units PRBC and 1 platelet planned. Patient has a RT IJ central line that was placed at the OSH. Critical care admission was requested per general surgery due to patient high risk for continued bleeding and close monitoring. On critical care exam in the ER, patient appeared pale but was awake and AOX4. She reported generalized abdominal pain and worsening abdominal pain with breathing. She hadjust finished her 4th unit of PRBC and ER was preparing to start the 1 unit platelets. Her vital signs appeared stable on initial evaluation. However after critical care exam patient blood pressure began to drop and CC was informed @ 0420 by general surgery that patient was being taken to the OR emergent spleen surgery. The patient described pain as located in the LUQ. Past Medical History: Past Medical History: Diagnosis Date ??? Anticoagulated ??? Atrial fibrillation (CMS/HCC) ??? Chronic back pain ??? GERD (gastroesophageal reflux disease) ??? HTN (hypertension) ??? 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 Myasthenia gravis (CMS/HCC) Past Surgical History: Past Surgical History: Procedure Laterality Date ??? ANKLE FRACTURE SURGERY right ??? HYSTERECTOMY partial ??? THORACOTOMY,MAJOR,EXPLOR/BIOPSY Right 07/20/2020 Right upper ??? TONSILLECTOMY Allergies: Allergies Allergen Reactions ??? Penicillins Hives Home Medications: Prior to Admission medications Medication Sig Start Date End Date Taking? Authorizing Provider apixaban 5 MG tablet Take 5 mg by mouth 2 (two) times daily. 03/31/21 Doc Abstract aspirin EC (ASPIRIN EC) 81 MG tablet Take 81 mg by mouth daily. Doc Abstract calcium carbonate-vitamin D (OYSTER SHELL CALCIUM-VITAMIN D) 500-200 MG-UNIT Tab Take 1 tablet by mouth daily. Doc Abstract Cyanocobalamin 100 MCG Tab Take 100 mcg by mouth daily. Doc Abstract dilTIAZem XR 120 MG 24 hr capsule Take 120 mg by mouth daily. 06/16/21 Doc Abstract hydroCHLOROthiazide 25 MG tablet 04/07/21 Doc Abstract magnesium oxide 250 MG tablet Doc Abstract Olmesartan Medoxomil 40 MG Tab Take 40 mg by mouth daily. Doc Abstract omeprazole 20 MG capsule 11/29/21 Doc Abstract pyridostigmine 60 MG tablet Take 0.5 tablets (30 mg total) by mouth 3 (three) times daily. 06/21/21 Anayeli Amado MD Social History: Social History Tobacco Use ??? Smoking status: Former Smoker Packs/day: 0.50 Years: 40.00 Pack years: 20.00 Types: Cigarettes Quit date: 2001 Years since quittin.3 ??? Smokeless tobacco: Never Used Substance Use Topics ??? Alcohol use: Yes Comment: occasional use- mixed drinks or wine Family History: Family history was reviewed as listed below. Family History Problem Relation Name Age of Onset ??? Hypertension Mother ??? Heart Disease Mother ??? Other (TIA) Mother ??? Hypertension Father ??? Heart Disease Father Review of Systems: A 12 point comprehensive review of systems was negative except for: Constitutional: positive for fatigue Gastrointestinal: positive for abdominal pain Vital Signs: Temp: [96 ??F (35.6 ??C)-97.8 ??F (36.6 ??C)] 97.8 ??F (36.6 ??C) Pulse: [68-136] 99 Resp: [16-35] 30 BP: (101-170)/(45-68) 101/61 Physical Exam: General appearance: oriented to person, place, and time Neurological: Grossly normal neurological examination, appropriate, and conversant Eyes: Tracking without difficulty, extra-ocular muscles intact, Pupil exam equal and reactive to light Mouth: Mucous membranes moist, no signficant deformity or malocclusion Chest: No dyspnea or respiratory distress noted, sufficient air movement, broadly clear, Clear, no wheezes, rales or rhonchi, symmetric air entry Heart: normal rate, normal rhythm Abdomen: soft, tender, tense Skin: pale, cool Psychiatric: Mood and affect appropriate, alert, and oriented Laboratory Results: Recent Labs Lab 10/02/21 1815 10/02/21 2120 10/03/21 0208 WBC 6.9 -- 6.2 HGB 7.9* -- 7.7* HCT 24.8* -- 23.6* PLT 229 -- 92* INR 1.6 1.4 1.3* PTT -- -- 32.9 NA 138 -- 139 K 3.7 -- 4.3 CL 107 -- 111* CO2 23.6 -- 22.0 AGAP 7.4 -- 6.0 BUN 21* -- 23* CR 1.10* -- 0.85 BUNCREATININ 19.1 -- -- GLU 173* -- 159* CA 9.0 -- 8.2* TP 6.8 -- 5.7* ALB 3.7 -- 3.0* TBIL 0.3 -- 0.8 ALKP 81 -- 60 AST 14* -- 13* ALT 16 -- 16 MAGNESIUM 2.4 -- -- No results found for: PH, PCO2, PO2, T1OALUPAJPUJ, BICARBWB, BASEDEFICIT, BASEEXCESS No results for input(s): ABORH in the last 168 hours. No results for input(s): CKTOTAL in the last 168 hours. Imaging: Radiology Results (Last 30 days) 10/02/[address] ABD+PEL W IV CON ONLY Final result Impression: IMPRESSION: 1. High-grade splenic rupture. Recommend general surgical consultation. Ordered By: CJ DIEHL Interpreted By: Katelyn Parsons, 10/02/2021 7:19 PM 10/02/21 1844 XR CHEST PORTABLE Final result Impression: IMPRESSION: No acute cardiopulmonary disease. Ordered By: CJ DIEHL Interpreted By: Katelyn Parsons, 10/02/2021 6:53 PM 09/24/21 0851 MRA NECK WWO CON Final result Impression: IMPRESSION: 1. Moderate length segment of 50-60 % stenosis proximal left ICA. 2. Moderate length stenosis of 40-50% of the proximal right ICA. 3. Absent flow in the first half of left vertebral artery with some reconstitution of flow distally with multisegmental stenoses. This could be a congenital variant with some distal reconstituted flow from accessory arterial source versus dissection and/or proximal occlusion. No comparison available. Referred By: ANAYELI AMADO Interpreted By: Dexter Wang MD, 09/25/2021 11:54 PM ASSESSMENT: Zee Martinez is a 76-year-old female with a concern for spleen hemmorage. PLAN: Neurological: Encourage reorientation, Maintain an acceptable level of alertness and minimize sedatives, PRN pain control, taper down as tolerated, Strict bedrest Cardiovascular: Monitor for arrhythmias, Monitor for hemodynamic instability, Maintain MAP >60 Respiratory: Pulmonary hygiene, Supplemental O2 as needed Gastrointestinal: Keep NPO, Anti-emetics, GI propylactic antacid therapy, NG tube if patient becomes nauseated and/or vomits Genitourinary: Monitor urine output and renal function, Indwelling urinary catheter, Lock[place] is indicated in this patient for accurate output measurements Musculoskeletal/Soft Tissue: Bed rest Infectious Disease: Monitor for new infection and fevers Endocrine: Begin scheduled blood glucose checks, Keep blood glucose under control Fluids & Electrolytes: Correct potassium, magnesium, phosphorus, and electrolyte abnormalities as necessary, Maintenance intravenous fluids Hematology: Monitor for signs of bleeding, Transfuse as per critical care guidelines, Serial hemoglobin/hematocrit Nutrition: Keep NPO Prophylaxis: Sequential compression device, GI propylactic antacid therapy Disposition: Social work/case management for discharge/transfer dispostion, Disposition under consideration per patient assessment, Continue to re-assess Additional and/or modified plans pending patient outcome and course of care after surgery Code: Full Code A total of 32 minutes of critical care time spent in evaluation and management of this patient, excluding any procedure time. Critical intervention performed include management of critical diagnosticstudies and uncontrolled hemorrhage. Cosigned by Miguel Armas MD at 10/03/2021 6:56 AM CDT Associated attestation - Miguel Armas MD - 10/03/2021 6:56 AM CDT I, MIGUEL ARMAS MD, performed a Consultation and History & Physical examination of the patient and discussed the management with the Advanced Practice Provider (ANI). I reviewed the ANI's noteand agree with the findings and plan of care, except as I have documented. Plan of care developed under my direct supervision. After seeing the patient in the ED, patient became hemodynamically unstable. Patient was taken to OR emergently by [facility] general surgery for splenectomy. * Reji Lim MD - 10/03/2021 2:11 AM CDT [facility] General Surgery History & Physical Assessment/Plan: 76-year-old female with PMH of HTN, A. fib on Eliquis, myasthenia gravis who was transferred for grade 4 splenic laceration s/p colonoscopy and EGD on 09/29/2021. On exam she is a nontoxic-appearing female, in painful distress, hemodynamically stable and currently being transfused 2 units of PRBCs. Abdomen is soft significant left upper and lower quadrant tenderness Labs from OSH reviewed, Hb was 7.9 and she has received 2 FFP's, 2 PRBCs, K- centra prior to transport, CT scan independently reviewed, agree with findings of Grade IV splenic laceration with hemoperitoneum. Has also been reviewed by interventional radiology and splenic embolization has been anticipated to be difficult. Given hemodynamic stability, will proceed with non-operative management for now. (See Rosaura jeffries al Selective non-operative mgt of blunt splenic injury: An [facility] managementguideline) However if there is any deterioration in clinical status will re-evaluate for operative intervention. Patient has been informed of this line of management as well as alternatives and she expressed understanding and is agreeable to proceed as above. Admit to ICU for close hemodynamic monitoring NPO, Strict bed rest Q6 H&H, Type and cross, have blood available at all times. Attending: Dr Pina HPI: 76-year-old female history of hypertension, A. fib on Eliquis, myasthenia gravis who had a colonoscopy and EGD on 09/29/2021 and started developing abdominal pain 2 days after on Sunday, she describes it as a sharp intermittent pain located across the left abdomen and radiating to her left sh oulder, she reports that the pain continued to increase in intensity and she subsequently passed out on Sunday after a severe episode of the pain. She subsequently went to the transferring hospital where CT scan was done showing grade 4 splenic laceration, therefore she a central line was placed and she received Kcentra, 2 PRBCs, 1 FFP and transferred here. She reports the pain has largely remained of the same intensity, denies any current dizziness or lightheadedness, nausea or vomiting, fever or chills, chest pain, difficulty breathing, difficulty speaking or swallowing. She restarted Eliquis on Sunday and last took it on Sunday morning and last meal was yester morning as well. She reports a history of myasthenia gravis and was taking pyridostigmine, however she has not taking that since August because it was causing stomach issues, she follows with a corporate tax manager. PMH: Hypertension, A. fib on Eliquis, myasthenia gravis PSH: Remote partial hysterectomy FH: Noncontributory SH: Former smoker ROS: A 12 system review of systems was performed and excluding the above mentioned information was otherwise negative Physical Exam: Vitals: 10/03/21 0200 BP: 133/66 Pulse: 84 Resp: 29 Temp: SpO2: 98% Gen: Resting comfortably in bed, NAD. Patient appears stated age HEENT: Normocephalic, atraumatic. EOMI. Neck soft, supple. Normal hearing CV: Normal rate resp: Airway grossly patent. Non-labored respirations, symmetric chest rise Abdom: soft, significant left upper and lower quadrant tenderness,no guarding or rigidity. Extremities: No edema. MSK: moves all extremities equally Integ: skin warm and intact Neuro: A&Ox3, no focal deficits Psych: appropriate mood and affect Diagnostic Data: Labs: Recent Labs Lab 10/02/21 1815 NA 138 K 3.7 CL 107 CO2 23.6 AGAP 7.4 BUN 21* CR 1.10* BUNCREATININ 19.1 GFRNON 48* GFR 56* GLU 173* CA 9.0 MAGNESIUM 2.4 Recent Labs Lab 10/02/21 1815 WBC 6.9 RBC 2.70* HGB 7.9* HCT 24.8* MCV 91.9 MCH 29.3 MCHC 31.9 PLT 229 RDW 13.8 MPV 11.2 PERNEU 51.7 PERLYM 25.5 PERMON 21.5* NEUC 3.56 LYMC 1.76 Recent Labs Lab 10/02/21181410/02/212119 INR 1.[address] abdomen/pelvis with IV contrast ?? IMPRESSION: 1. High-grade splenic rupture. Recommend general surgical consultation. Cosigned by Luis Pina MD at 10/03/2021 11:02 PM CDT Associated attestation - Luis Pina MD - 10/03/2021 11:02 PM CDT [facility] General Surgery Attending Attestation I had accepted Zee Martinez from Dr. Hicks at [facility] ([place]), then saw and examined Zee Martinez in the ER J at 05:15 today (10/03/21), have reviewed Dr. Lim's H+P above and concur with her findings, impressions and recommendations. Please see above/below for additional details. 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 Presented to [facility] where labs and CT scan were obtained. CT demonstrated splenic laceration. She was normotensive at [facility] and received a CVP line, 2 x 20G PIV, and 2 u pRBC's.X-fered by ambulance to [facility]. 2 additional units pRBC's started en route despite reportedly normal VS. She is on Eliquis for atrial fibrillation and she says she has carotid stenosis; denies CVA. She says she has progressively worsening epigastric and LUQ pain. Former smoker, no DM. PSH vaginal hyste rectomy, no other abdominal operations. We initially tried non-op management but she had transient hypotension and poor response to transfusion in terms of increased H/H. On exam I find Ms. Martinez to be a non-obese pleasant and cooperative adult WF appearing stated age. Accompanied in ER by adult male ID'd as her son. BP 136/80; P = 82. She is awake and alert, NAD. Abdomen mildly distended, no scars and tender in the epigastrium and LUQ. Labs noted as reported above. I personally reviewed the CT scan obtained at [facility] and observed significant hemoperitoneum as well as a grade 4/5 laceration of the spleen. Impression/recommendations: Despite being largely hemodynamically stable, Ms. Martinez has had periods of hypotension and an inadequate response to blood transfusion regarding increasing hemoglobin and hematocrit. Although there is an interesting and developing movement towards nonoperative management for even higher grade splenic injuries, angioembolization does not appear to be an option in this case as I reviewed the case with interventional radiologist Dr. Kat who opined that celiac origin calcification would likely preclude angio embolic management. Given the above I consented Ms. Martinez for operative splenectomy. I explained the surgical anatomy, the operation proposed, and its risks (including but not limited to , SD, CVA, DVT, PE, UTI, bleeding, infection, damage to internal organs), benefits and alternatives to Ms. Martinez. She understands and wishes to proceed, and identifies her son as POA in unlikely event such becomes necessary. Will proceed to the operating room shortly as they become available as this case has not been declared an emergency. Luis Pina MD [facility] General Surgery Pgr: [phone] LUIS PINA MD documented in this encounter OR Notes * Brief Op Note - Micha Valdes MD - 10/03/2021 7:51 AM CDT HS Brief Op HSHSLAPAROTOMY EXPLORATORY SPLEENECTOMY Procedure Note Zee Martinez 10/03/2021 0515 Procedure(s) (LRB): LAPAROTOMY EXPLORATORY SPLEENECTOMY (N/A) Right Radial arterial line Surgeon(s): MD Nils Stover MD Marc R Garfinkel, MD Shawn M Poole, MD Hat Braider: Harlan Barahona, MS3 Anesthesia: General Pre-Op Diagnosis: SPLEEN TRAUMA Post-Op Diagnosis: Splenic laceration, massive hemoperitoneum Findings: Massive hemoperitoneum, fractured spleen, successful hemostasis s/p splenectomy. The small bowel was ran from ligament of Treitz to ligament of Treves. The large bowel was also evaluated. Both of which, without concern for bowel injury. Estimated Blood Loss: 200 mL active bleeding from spleen prior to removal with ~2000mL of hemoperitoneum upon entry. Specimens: ID Type Source Tests Collected by Time A : TISSUE SPLEEN PATHOLOGY Luis Pina MD 10/03/2021 [id number] Micha Valdes MD Date: 10/03/2021 Time: 7:51 AM Cosigned by Luis Pina MD at 10/03/2021 11:14 PM CDT Associated attestation - Luis Pina MD - 10/03/2021 11:14 PM CDT [facility] General Surgery Attending Attestation I was present for above procedure as described. I agree with description provided by resident note above, with any modifications noted below, if necessary. I dictated a full operative report; work confirmation number is: [id number]. mrg Luis Pina MD [facility] General Surgery Pgr: [phone] * Op Note - Luis Pina MD - 10/03/2021 12:00 AM CDT PREOPERATIVE DIAGNOSIS: Splenic trauma/grade 4 splenic laceration. POSTOPERATIVE DIAGNOSIS: Grade 5 splenic laceration. PROCEDURES PERFORMED: 1. Right radial A-line. 2. Open splenectomy. SURGEON: Luis Pina MD ASSISTANTS: Micha Valdes MD as well as Harlan Barahona MS3 ANESTHESIA: General endotracheal. INTRAVENOUS FLUIDS: 2 liters of crystalloid, 3 units packed red blood cells and 2 units of FFP. URINE OUTPUT: 225 mL ESTIMATED BLOOD LOSS: 400 mL total, not counting over a liter of hemoperitoneum. FINDINGS: Completely macerated spleen with extensive hemoperitoneum. No other bowel injuries identified nor liver injuries. INDICATIONS FOR PROCEDURE: Ms. Martinez is a 76-year-old woman who had undergone colonoscopy 2-1/2 daysprior to admission. She then presented to [facility] in [place], [place] with a syncopal episode and abdominal pain in the left upper quadrant. Labs and a CT scan were obtained. Labs demonstrated a marked reduction in her hemoglobin and a CT scan demonstrated a high-grade splenic trauma. She had denied falls or motor vehicle accident or other external trauma. She was brought by ambulance to [facility] and given a total of 4 units prior to my seeing her in the emergency room. Despite this, she had intermittent bouts of hypotension and ongoing and worsening abdominal pain.After careful review and a brief trial of nonoperative management, she was offered operative splenectomy, which she accepted. She comes now for this procedure. DESCRIPTION OF PROCEDURE: Ms. Martinez was brought to the operating room and placed in the supine position. Additional IVs were placed by the anesthesia service. At the request of the anesthesia service,I placed a right radial arterial line at the wrist by prepping and numbing the skin at the wrist palpating the radial artery and using a 20-gauge Arrow arterial line catheter kit to puncture the artery signified by bright red arterial blood coming through the catheter, advanced the wire through thecatheter into the artery and then the catheter over the wire into the artery. Upon withdrawal of the wire, bright red blood was seen emanating from catheter and a pressurized flush arterial line tubing was attached. Good waveform was identified and the arterial line was sutured in place with 3-0 nylon sutures x2. Sterile bandages were applied. Next, I turned my attention to performing the splenectomy. The abdomen was prepped and draped in the usual sterile fashion. A generous upper vertical midline laparotomy was made and carried down through subcutaneous tissue to the fascia, which was incised in the midline. The retroperitoneum was incised and we initially and immediately encountered massive hemoperitoneum. The 30 lap packs were placed into the abdomen to gain hemostasis and allow hemodynamic stability as judged by the anesthesia service. In concert with the anesthesiologist, we then proceeded to carefully remove the packs in allquadrants, but the left upper quadrant examining the area for bleeding and finding none. Finally, we evacuated the packs in the left upper quadrant, which demonstrated extensive hemoperitoneum and clot here. This was evacuated and the spleen identified and grasped. I placed my fingers across the hilum of the spleen and mobilized it from the stomach and pancreas. With this, I placed a large clamp across the splenic hilum and removed the spleen, which was largely destroyed and in pieces. This wassent for histopathologic examination. The pedicle was suture ligated with 0 silk tie and felt to besecure. Examination of the greater curvature of the stomach revealed no bleeding. Short gastrics but several small areas of capillary bleeding were controlled with either cautery or silk [id number] sutures. One serosal injury to the stomach was repaired with 3 times 3-0 silk Lembert's sutures.The abdomen was thoroughly irrigated with copious quantities of sterile warm normal saline and examined multiple times for hemostasis. Ultimately, it was found to be dry. The midline fascia was repaired with a running #1 looped PDS suture. Marcaine was infused into the subcutaneous tissue. The skinwas reapproximated with lida. The skin was washed and dried and sterile bandages applied. Ms. Martinez remained intubated on the judgment of the anesthesiologist and still cleaner and was transferred directly to the ICU in stable condition and on no pressors. Surgical ICU management will ensue with Dr. Ferrera with us following. There was no complication from the procedure and I was present for the entire duration of the case. #[id number] /NTS documented in this encounter ED Notes * Prateek Castro RN - 10/03/2021 5:25 AM CDT Blood transfusion paper and consent for surgery handed over to ANNA De Los Santos RN * Prateek Castro RN - 10/03/2021 5:02 AM CDT Pumping Plant Operator called up DR Reji Lim and clarified about her ordered clindamycin. She stated to start clindamycin once patient is in the OR. * Prateek Castro RN - 10/03/2021 5:00 AM CDT Patient's last fluid intake ( sips of water as per patient) was at 10/02/2021 6pm and last solid food intake was at 10 am * Prateek Castro RN - 10/03/2021 4:49 AM CDT Report given to Magali, OR staff * Prateek Castro RN - 10/03/2021 4:45 AM CDT Patient signed the consent for the surgery. * Prateek Castro RN - 10/03/2021 4:[address] Micha Valdes (surgery) at bedside. He explained to patient the need for surgery today. Risks and benefits were explained to patient by Dr Valdes. * Raheem Galeano RN - 10/03/2021 4:25 AM CDT RN to room to assess patient. Patient very pale and lethargic, CAOx4, GSC 15. SBP now 101, down from [address] Mohan aware. * Prateek Castro RN - 10/03/2021 3:50 AM CDT Blood transfusion from other facility has been completed. * Prateek Castro RN - 10/03/2021 3:40 AM CDT Patient is for platelet pheresis transfusion. Consent has been signed by patient. * Rachelle Mayo RN - 10/03/2021 3:00 AM CDT 1 bag of PRBC finished and disconnected from IJ. Flushed IJ cath and swab capped. * Rachelle Mayo RN - 10/03/2021 2:55 AM CDT Patient seen by Surgery team. Deemed not for OR at this time but for ICU admission instead. * Rachelle Mayo RN - 10/03/2021 1:46 AM CDT Blood transfusion rate changed to 150 ml/hr on both units. * Rachelle Mayo RN - 10/03/2021 1:40 AM CDT Patient has ongoing 2 units of RBC on her right IJ cath running at 75 ml/hr. * Melanie Sam MD - 10/03/2021 1:39 AM CDT Chief Complaint Chief Complaint Patient presents with ??? Syncope ??? Abdominal Injury History of Present Illness Patient is a 76-year-old female history of lung lobectomy, A. fib on Eliquis, hysterectomy who presents as a transfer from outside hospital for concern for high-grade splenic laceration. Patient noted that she had a colonoscopy last week for the past 2 to 3 days has had upper abdominal pain. Today had multiple episodes of syncope and was noted to be hypotensive. Denies any recent falls or injuries. Has a history of hysterectomy but no other abdominal surgeries. No history of abdominal trauma. Patient restarted her Eliquis on Sunday. Patient is feeling improved with fluids and blood. Received plasma, FFP and 2 units packed red blood. Patient is feeling improved with transfusion. Medical History ALLERGIES: Allergies Allergen Reactions ??? Penicillins Hives MEDICATIONS: Prior to Admission medications Medication Sig Start Date End Date Taking? Authorizing Provider apixaban 5 MG tablet Take 5 mg by mouth 2 (two) times daily. 03/31/21 Doc Abstract aspirin EC (ASPIRIN EC) 81 MG tablet Take 81 mg by mouth daily. Doc Abstract calcium carbonate-vitamin D (OYSTER SHELL CALCIUM-VITAMIN D) 500-200 MG-UNIT Tab Take 1 tablet by mouth daily. Doc Abstract Cyanocobalamin 100 MCG Tab Take 100 mcg by mouth daily. Doc Abstract dilTIAZem XR 120 MG 24 hr capsule Take 120 mg by mouth daily. 06/16/21 Doc Abstract hydroCHLOROthiazide 25 MG tablet 04/07/21 Doc Abstract magnesium oxide 250 MG tablet Doc Abstract Olmesartan Medoxomil 40 MG Tab Take 40 mg by mouth daily. Doc Abstract omeprazole 20 MG capsule 05/16/21 Doc Abstract pyridostigmine 60 MG tablet Take 0.5 tablets (30 mg total) by mouth 3 (three) times daily. 06/21/21 Anayeli Amado MD PAST MEDICAL HISTORY: Past Medical History: Diagnosis Date ??? Anticoagulated ??? Atrial fibrillation (CMS/HCC) ??? Chronic back pain ??? GERD (gastroesophageal reflux disease) ??? HTN (hypertension) ??? 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 Myasthenia gravis (CMS/HCC) PAST SURGICAL HISTORY: Past Surgical History: Procedure Laterality Date ??? ANKLE FRACTURE SURGERY right ??? HYSTERECTOMY partial ??? THORACOTOMY,MAJOR,EXPLOR/BIOPSY Right 07/20/2020 Right upper ??? TONSILLECTOMY FAMILY HISTORY: Family History Problem Relation Name Age of Onset ??? Hypertension Mother ??? Heart Disease Mother ??? Other (TIA) Mother ??? Hypertension Father ??? Heart Disease Father SOCIAL HISTORY: Social History Tobacco Use ??? Smoking status: Former Smoker Packs/day: 0.50 Years: 40.00 Pack years: 20.00 Types: Cigarettes Quit date: 2001 Years since quittin.3 ??? Smokeless tobacco: Never Used Substance Use Topics ??? Alcohol use: Yes Comment: occasional use- mixed drinks or wine ??? Drug use: Never Review of Systems Review of Systems Constitutional: Negative for chills and fever. HENT: Negative for congestion and sore throat. Respiratory: Negative for cough and shortness of breath. Cardiovascular: Negative for chest pain and palpitations. Gastrointestinal: Positive for abdominal pain. Negative for constipation, diarrhea, nausea and vomiting. Genitourinary: Negative for difficulty urinating and dysuria. Musculoskeletal: Negative for back pain and joint swelling. Skin: Negative for rash and wound. Neurological: Positive for light-headedness. Negative for weakness and headaches. Hematological: Negative for adenopathy. Does not bruise/bleed easily. Psychiatric/Behavioral: Negative for agitation and confusion. All other systems reviewed and are negative. Physical Exam Filed Vitals: 10/03/21 0425 10/03/21 0437 10/03/21 0442 10/03/21 0503 BP: 125/62 131/60 139/60 122/57 Pulse: 82 82 81 83 Resp: 26 (!) 32 29 30 Temp: TempSrc: SpO2: 98% 100% 99% 99% Weight: Height: Physical Exam Vitals and nursing note reviewed. Constitutional: Appearance: Normal appearance. She is well-developed. She is ill-appearing. Comments: Appears pale HENT: Head: Normocephalic and atraumatic. Mouth/Throat: Mouth: Mucous membranes are dry. Eyes: Extraocular Movements: Extraocular movements intact. Pupils: Pupils are equal, round, and reactive to light. Cardiovascular: Rate and Rhythm: Normal rate and regular rhythm. Pulses: Normal pulses. Heart sounds: Normal heart sounds. No murmur heard. No friction rub. No gallop. Pulmonary: Effort: Pulmonary effort is normal. No respiratory distress. Breath sounds: Normal breath sounds. No wheezing or rales. Abdominal: General: Bowel sounds are normal. There is no distension. Palpations: Abdomen is soft. Tenderness: There is abdominal tenderness. Comments: Epigastric tenderness Musculoskeletal: General: No tenderness or deformity. Normal range of motion. Cervical back: Normal range of motion and neck supple. Skin: General: Skin is warm and dry. Capillary Refill: Capillary refill takes 2 to 3 seconds. Coloration: Skin is pale. Neurological: General: No focal deficit present. Mental Status: She is alert and oriented to person, place, and time. Psychiatric: Mood and Affect: Mood normal. Behavior: Behavior normal. Diagnostic Studies / Procedures ELECTROCARDIOGRAMS: Results for orders placed or performed during the hospital encounter of 10/03/21 ECG 12 lead Narrative [facility] Test Date: 2021-10-03 Pat Name: [facility] Department: 70 Room: EXAM Gender: Female Compatibility Test Engineer: Zulahoo : 1945 Requested By: MILEY MOHAN Order Number: [id number] Reading MD: Measurements Intervals [place] Rate: 82 P: 73 OH: 147 QRS: 25 QRSD: 74 T: 49 QT: 385 QTc: 450 Interpretive Statements SINUS RHYTHM ECG 12 lead Narrative [facility] Test Date: 2021-10-03 Pat Name: [facility] Department: 70 Room: EXAM Gender: Female Compatibility Test Engineer: Tamika Wolonge : 1945 Requested By: DIANA CLOUD Order Number: [id number] Reading MD: Measurements Intervals [place] Rate: 81 P: 66 OH: 136 QRS: 19 QRSD: 73 T: 46 QT: 385 QTc: 449 Interpretive Statements SINUS RHYTHM LABORATORY STUDIES: Results for orders placed or performed during the hospital encounter of 10/03/21 CBC W/DIFF AUTOMATED Result Value Ref Range WBC 6.2 4.0 - 10.8 x10'3/uL RBC 2.72 (L) 4.10 - 5.40 x10'6/uL HGB 7.7 (L) 12.0 - 16.0 G/DL HCT 23.6 (L) 36.0 - 47.0 % MCV 86.8 78.0 - 100.0 FL MCH 28.3 27.0 - 31.0 PG MCHC 32.6 (L) 33.0 - 36.0 G/DL RDW 15.7 (H) 11.5 - 14.5 % PLT 92 (L) 150 - 350 x10'3/uL MPV 10.8 (H) 7.4 - 10.4 FL ABS. NEUTROPHILS 3.58 1.60 - 8.30 x10'3/uL ABS. LYMPHOCYTES 0.83 0.80 - 4.70 x10'3/uL ABS. MONOCYTES 1.67 (H) 0.00 - 1.50 x10'3/uL ABS. EOSINOPHILS 0.01 0.00 - 0.40 x10'3/uL ABS. BASOPHILS 0.01 0.00 - 0.20 x10'3/uL ABS. IMMATURE GRANULOCYTES 0.09 (H) 0.00 - 0.03 x10'3/uL ABS. NUCLEATED RBC'S 0.00 0.0 x10'3/uL COMPREHENSIVE METABOLIC PANEL Result Value Ref Range SODIUM 139 136 - 145 MMOL/L POTASSIUM 4.3 3.5 - 5.1 MMOL/L CHLORIDE S/P/B 111 (H) 98 - 107 MMOL/L CO2 22.0 21.0 - 32.0 MMOL/L GLUCOSE 159 (H) 74 - 106 MG/DL BUN 23 (H) 7 - 18 MG/DL CREATININE S/P/B 0.85 0.55 - 1.02 MG/DL CALCIUM 8.2 (L) 8.5 - 10.1 MG/DL BILIRUBIN TOTAL S/P/B 0.8 0.2 - 1.0 MG/DL ALKALINE PHOSPHATASE S/P/B 60 55 - 142 U/L AST 13 (L) 15 - 37 U/L ALT 16 13 - 56 U/L TOTAL PROTEIN S/P/B 5.7 (L) 6.4 - 8.2 G/DL ALBUMIN S/P/B 3.0 (L) 3.4 - 5.0 G/DL ANION GAP 6.0 5.0 - 15.0 MMOL/L OSMOLALITY (CALC) 295 MOSM/KG eGFR Non-Afr. Amer. 66 (L) >90 ML/MIN/1.73 M2 eGFR Afr. Amer. 77 (L) >90 ML/MIN/1.73 M2 GFR NOTES GFR REFERENCES: LACTIC ACID Result Value Ref Range LACTIC ACID 1.6 0.4 - 2.0 MMOL/L LIPASE Result Value Ref Range LIPASE 95 73 - 393 UNITS/L PROTIME/INR, VENOUS (PROTHROMBIN TIME) Result Value Ref Range Protime 14.9 (H) 10.2 - 12.9 SEC INR 1.3 (H) 0.9 - 1.1 PARTIAL THROMBOPLASTIN TIME,PTT Result Value Ref Range PTT 32.9 25.1 - 36.5 SEC CBC, AUTO, NO DIFF Result Value Ref Range WBC 9.6 4.0 - 10.8 x10'3/uL RBC 2.97 (L) 4.10 - 5.40 x10'6/uL HGB 8.5 (L) 12.0 - 16.0 G/DL HCT 25.7 (L) 36.0 - 47.0 % MCV 86.5 78.0 - 100.0 FL MCH 28.6 27.0 - 31.0 PG MCHC 33.1 33.0 - 36.0 G/DL RDW 15.4 (H) 11.5 - 14.5 % PLT 158 150 - 350 x10'3/uL MPV 10.8 (H) 7.4 - 10.4 FL COMPREHENSIVE METABOLIC PANEL Result Value Ref Range SODIUM 138 136 - 145 MMOL/L POTASSIUM 4.5 3.5 - 5.1 MMOL/L CHLORIDE S/P/B 110 (H) 98 - 107 MMOL/L CO2 21.1 21.0 - 32.0 MMOL/L GLUCOSE 156 (H) 74 - 106 MG/DL BUN 25 (H) 7 - 18 MG/DL CREATININE S/P/B 0.93 0.55 - 1.02 MG/DL CALCIUM 8.2 (L) 8.5 - 10.1 MG/DL BILIRUBIN TOTAL S/P/B 0.9 0.2 - 1.0 MG/DL ALKALINE PHOSPHATASE S/P/B 65 55 - 142 U/L AST 16 15 - 37 U/L ALT 21 13 - 56 U/L TOTAL PROTEIN S/P/B 6.3 (L) 6.4 - 8.2 G/DL ALBUMIN S/P/B 3.2 (L) 3.4 - 5.0 G/DL ANION GAP 6.9 5.0 - 15.0 MMOL/L OSMOLALITY (CALC) 294 MOSM/KG eGFR Non-Afr. Amer. 59 (L) >90 ML/MIN/1.73 M2 eGFR Afr. Amer. 69 (L) >90 ML/MIN/1.73 M2 GFR NOTES GFR REFERENCES: MAGNESIUM Result Value Ref Range MAGNESIUM 2.5 1.6 - 2.6 MG/DL LACTIC ACID Result Value Ref Range LACTIC ACID 2.4 (H) 0.4 - 2.0 MMOL/L PHOSPHORUS, INORGANIC PHOSPHATE Result Value Ref Range PHOSPHORUS 3.5 2.5 - 4.9 MG/DL PROTHROMBIN TIME, VENOUS Result Value Ref Range Protime 15.0 (H) 10.2 - 12.9 SEC INR 1.3 (H) 0.9 - 1.1 HEMOGLOBIN, GLYCOSYLATED Result Value Ref Range HGB A1C 5.6 <5.7 % ESTIMATED AVERAGE GLUCOSE 114 74 - 114 MG/DL TYPE & SCREEN Result Value Ref Range UNITS ORDERED 3 ABO/RH O POSITIVE ANTIBODY SCREEN NEGATIVE SAMPLE EXPIRATION: 10/06/2021,2358 UNIT NUMBER [id number] PRODUCT: PC LEUKOPOOR UNIT DIVISION 00 UNIT STATUS ISSUED ISSUE DATE/TIME [id number] PRODUCT CODE [id number] ABO/RH Unit O POS ABO/RH UNIT ISBT CODE 5100 UNIT EXPIRATION DATE [id number] TRANSFUSION STATUS OK TO TRANSFUSE CROSSMATCH COMPATIBLE-EXM UNIT NUMBER [id number] PRODUCT: PC LEUKOPOOR UNIT DIVISION 00 UNIT STATUS ISSUED ISSUE DATE/TIME [id number] PRODUCT CODE [id number] ABO/RH Unit O POS ABO/RH UNIT ISBT CODE 5100 UNIT EXPIRATION DATE [id number] TRANSFUSION STATUS OK TO TRANSFUSE CROSSMATCH COMPATIBLE-EXM UNIT NUMBER [id number] PRODUCT: PC LEUKO PHERE BAG2 UNIT DIVISION 00 UNIT STATUS ISSUED ISSUE DATE/TIME [id number] PRODUCT CODE [id number] ABO/RH Unit O POS ABO/RH UNIT ISBT CODE 5100 UNIT EXPIRATION DATE [id number] TRANSFUSION STATUS OK TO TRANSFUSE CROSSMATCH COMPATIBLE-EXM ORDER PLATELET PHERESIS Result Value Ref Range UNITS ORDERED 1 UNIT NUMBER [id number] PRODUCT: PLT PHERESIS LEUKORED 7D UNIT DIVISION 00 UNIT STATUS ISSUED ISSUE DATE/TIME [id number] PRODUCT CODE [id number] ABO/RH Unit O POS ABO/RH UNIT ISBT CODE 5100 UNIT EXPIRATION DATE [id number] TRANSFUSION STATUS OK TO TRANSFUSE ORDER FRESH FROZEN PLASMA, 2 Units Result Value Ref Range UNITS ORDERED 2 UNIT NUMBER [id number] PRODUCT: THAWED PLASMA UNIT DIVISION 00 UNIT STATUS ISSUED ISSUE DATE/TIME [id number] PRODUCT CODE [id number] ABO/RH Unit A POS ABO/RH UNIT ISBT CODE 6200 UNIT EXPIRATION DATE TRANSFUSION STATUS OK TO TRANSFUSE UNIT NUMBER [id number] PRODUCT: THAWED PLASMA BAG 3 UNIT DIVISION 00 UNIT STATUS ISSUED ISSUE DATE/TIME PRODUCT CODE [id number] ABO/RH Unit AB POS ABO/RH UNIT ISBT CODE 8400 UNIT EXPIRATION DATE TRANSFUSION STATUS OK TO TRANSFUSE BIOFIRE PCR UPPER RESPIRATORY PROFILE (RESPIRATORY PCR PANEL 2) Specimen: NASOPHARYNGEAL SWAB Result Value Ref Range ADENOVIRUS PCR (RESP) NOT DETECTED NOT DETECTED CORONAVIRUS 229E PCR (RESP) NOT DETECTED NOT DETECTED CORONAVIRUS HKU1 PCR (RESP) NOT DETECTED NOT DETECTED CORONAVIRUS NL63 PCR (RESP) NOT DETECTED NOT DETECTED CORONAVIRUS OC43 PCR (RESP) NOT DETECTED NOT DETECTED METAPNEUMOVIRUS PCR (RESP) NOT DETECTED NOT DETECTED RHINOVIRUS/ENTEROVIRUS PCR (RESP) NOT DETECTED NOT DETECTED INFLUENZA A PCR (RESP) NOT DETECTED NOT DETECTED INFLUENZA B PCR (RESP) NOT DETECTED NOT DETECTED PARAINFLUENZA 1 PCR (RESP) NOT DETECTED NOT DETECTED PARAINFLUENZA 2 PCR (RESP) NOT DETECTED NOT DETECTED PARAINFLUENZA 3 PCR (RESP) NOT DETECTED NOT DETECTED PARAINFLUENZA 4 PCR (RESP) NOT DETECTED NOT DETECTED RSV PCR (RESP) NOT DETECTED NOT DETECTED B PARAPERTUSIS PCR (RESP) NOT DETECTED NOT DETECTED BORDETELLA PERTUSSIS PCR (RESP) NOT DETECTED NOT DETECTED CHLAMYDOPHILA PNEUMONIAE PCR (RESP) NOT DETECTED NOT DETECTED MYCOPLASMA PNEUMONIAE PCR (RESP) NOT DETECTED NOT DETECTED CORONAVIRUS SARS COV 2 PCR (RESP) NOT DETECTED NOT DETECTED FIRST TEST YES EMPLOYED IN HEALTHCARE NO SYMPTOMATIC DEFINED BY CDC NO HOSPITALIZATION STATUS NO PATIENT IN ICU UNKNOWN RESIDENT OF [facility] NO IMAGING STUDIES No orders to display ED Course / Medical Decision Making MDM Number of Diagnoses or Management Options Diagnosis management comments: Patient is a 76-year-old female who presents as a transfer for high-grade splenic lack. Will obtain CBC, CMP, coags, type and screen. Will contact continue blood transfusion. Patient was accepted by Dr. Pina with general surgery also discussed with interventionalradiology. Critical diagnoses for patient's presentation were considered and discussed with the patient. Risks and benefits of testing and proposed plan were discussed. Patient verbalized understanding and is agreeable. Staffed with Dr. Mohan. ED Course as of Oct 03 0658 Mon Oct 03, 2021 0235 HGB(!): 7.7 [SI] 0240 LACTIC ACID: 1.6 [SI] 0317 Discussed with MARLENE gen surg, plan for non-operative management, requesting ICU admission. Spoke to Dr Armas Trauma/ICU, will see patient. [SI] 0400 Patient will be taken to OR for worsening abdominal pain and downtrending BP [SI] ED Course User Index [SI] Melanie Sam MD Clinical Impression Splenic laceration (Primary) Disposition: Admit Cosigned by Miley Mohan MD at 10/03/2021 7:00 PM CDT Associated attestation - Miley Mohan MD - 10/03/2021 7:00 PM CDT Teaching Physician - IMiley MD, performed a History and Physical examination of the patient and discussed the management with the resident. I reviewed the Resident's note and agree withthe findings and plan of care, except as I have documented. Teaching physician supervised resident in person. * Rachelle Mayo RN - 10/03/2021 1:31 AM CDT Patient brought in via EMS from [facility] ER for splenic laceration. Patient had upper endoscopyand colonoscopy on 09/29. Tonight, while eating dinner had abdominal pain and passed out for approximately less than [address] Abdo Pelvis done in outlying facility where splenic laceration was diagnosed. She was given 4 units of RBC (including the ones she came in with), 1 unit of FFP and KCentra. AOx4. documented in this encounter Plan of Treatment Upcoming Encounters Date Type Department Care Team (Late st Contact Info) Description 07/22/2024 11:40 AM QA SOFTWARE TESTER Office Visit [facility] Multispecialty Care - [facility] [address] [facility] [address] [facility] [address], [address] [place] [address] Anayeli Amado MD [address] [facility] [place] [address] 10/16/2024 11:00 AM CDT Appointment [facility] [address] [facility] [place] [address] Jimmy Morris MD [facility]. [address] [place], [place] [phone] documented as of this encounter Procedures Procedure Name Priority Date/Time Associated Diagnosis Comments POCT GLUCOSE - RANDOLPH DOCKED DEVICE Routine 10/08/2021 6:08 AM CDT POCT GLUCOSE - RANDOLPH DOCKED DEVICE Routine 10/08/2021 1:10 AM CDT BASIC METABOLIC PANEL Routine 10/07/2021 11:56 PM CDT CBC, AUTO, NO DIFF Routine 10/07/2021 11 :56 PM CDT PHOSPHORUS, INORGANIC PHOSPHATE Routine 10/07/2021 11:56 PM CDT MAGNESIUM Routine 10/07/2021 11:56 PM CDT BASIC METABOLIC PANEL Routine 10/07/2021 3:25 PM CDT XR ABD KUB Today 10/07/2021 12:40 PM CDT CBC, AUTO, NO DIFF STAT 10/07/2021 8: 25 AM CDT BASIC METABOLIC PANEL Routine 10/07/2021 5:14 AM CDT PHOSPHORUS, INORGANIC PHOSPHATE Routine 10/07/2021 5:14 AM CDT MAGNESIUM Routine 10/07/2021 5:14 AM CDT VANCOMYCIN TIMED 10/07/2021 5:14 AM CDT POCT GLUCOSE - RANDOLPH DOCKED DEVICE Routine 10/06/2021 11:25 PM CDT POCT GLUCOSE - RANDOLPH DOCKED DEVICE Routine 10/06/2021 6:21 PM CDT POCT GLUCOSE - RANDOLPH DOCKED DEVICE Routine 10/06/2021 11:51 AM CDT MRSA SCREENING Nurse Collected Priority 10/06/2021 9:30 AM CDT POCT GLUCOSE - RANDOLPH DOCKED DEVICE Routine 10/06/2021 8:11 AM CDT POCT GLUCOSE - RANDOLPH DOCKED DEVICE Routine 10/06/2021 5:05 AM CDT COMPREHENSIVE METABOLIC PANEL Routine 10/06/2021 5:00 AM CDT CBC, AUTO, NO DIFF Routine 10/06/2021 5: 00 AM CDT PHOSPHORUS, INORGANIC PHOSPHATE Routine 10/06/2021 5:00 AM CDT MAGNESIUM Routine 10/06/2021 5:00 AM CDT POCT GLUCOSE - RANDOLPH DOCKED DEVICE Routine 10/05/2021 11:11 PM CDT POCT GLUCOSE - RANDOLPH DOCKED DEVICE Routine 10/05/2021 5:58 PM CDT POCT GLUCOSE - RANDOLPH DOCKED DEVICE Routine 10/05/2021 11:40 AM CDT COMPREHENSIVE METABOLIC PANEL Routine 10/05/2021 4:56 AM CDT CBC, AUTO, NO DIFF Routine 10/05/2021 4: 56 AM CDT PHOSPHORUS, INORGANIC PHOSPHATE Routine 10/05/2021 4:56 AM CDT MAGNESIUM Routine 10/05/2021 4:56 AM CDT POCT GLUCOSE - RANDOLPH DOCKED DEVICE Routine 10/04/2021 11:44 PM CDT CULTURE, BACTERIA, BLOOD TIMED 10/04/2021 10:02 PM CDT CULTURE, BACTERIA, BLOOD TIMED 10/04/2021 9:54 PM CDT XR CHEST PORTABLE Today 10/04/2021 9:1 8 PM CDT LACTIC ACID TIMED 10/04/2021 8:37 PM CDT POCT GLUCOSE - RANDOLPH DOCKED DEVICE Routine 10/04/2021 5:15 PM CDT POCT GLUCOSE - RANDOLPH DOCKED DEVICE Routine 10/04/2021 10:57 AM CDT POCT GLUCOSE - RANDOLPH DOCKED DEVICE Routine 10/04/2021 5:48 AM CDT BASIC METABOLIC PANEL Routine 10/04/2021 3:45 AM CDT CBC W/DIFF AUTOMATED Routine 10/04/2021 3:45 AM CDT PHOSPHORUS, INORGANIC PHOSPHATE Routine 10/04/2021 3:45 AM CDT MAGNESIUM Routine 10/04/2021 3:45 AM CDT POCT GLUCOSE - RANDOLPH DOCKED DEVICE Routine 10/03/2021 10:56 PM CDT HEMOGLOBIN AND HEMATOCRIT TIMED 10/03/2021 9:03 PM CDT POCT GLUCOSE - RANDOLPH DOCKED DEVICE Routine 10/03/2021 3:30 PM CDT HEMOGLOBIN AND HEMATOCRIT TIMED 10/03/2021 3:17 PM CDT XR ABD KUB STAT 10/03/2021 12:26 PM CDT HEMOGLOBIN AND HEMATOCRIT Routine 10/03/2021 11:06 AM CDT POCT GLUCOSE - RANDOLPH DOCKED DEVICE Routine 10/03/2021 10:31 AM CDT TRANSFUSE FRESH FROZEN PLASMA Routine 10/03/2021 7:35 AM CDT TRANSFUSE RED BLOOD CELLS STAT 10/03/2021 7:28 AM CDT CBC W/DIFF AUTOMATED STAT 10/03/2021 7:20 AM CDT POCT ACUTE ARTERIAL PANEL Routine 10/03/2021 7:14 AM CDT TRANSFUSE FRESH FROZEN PLASMA Routine 10/03/2021 7:04 AM CDT ORDER FRESH FROZEN PLASMA Routine 10/03/2021 6:45 AM CDT TRANSFUSE RED BLOOD CELLS STAT 10/03/2021 6:43 AM CDT POCT ACUTE ARTERIAL PANEL Routine 10/03/2021 6:35 AM CDT TRANSFUSE RED BLOOD CELLS STAT 10/03/2021 6:35 AM CDT POCT GLUCOSE - RANDOLPH DOCKED DEVICE Routine 10/03/2021 6:29 AM CDT EXPLORATORY OF ABDOMEN 10/03/2021 5:13 AM CDT SPLEEN TRAUMA Case Notes DECLARED CASE HEMOGLOBIN, GLYCOSYLATED STAT 10/03/2021 5:12 AM CDT PROTHROMBIN TIME, VENOUS STAT 10/03/2021 5:12 AM CDT COMPREHENSIVE METABOLIC PANEL STAT 10/03/2021 5:12 AM CDT LACTIC ACID STAT 10/03/2021 5:12 AM CDT CBC, AUTO, NO DIFF STAT 10/03/2021 5: 12 AM CDT PHOSPHORUS, INORGANIC PHOSPHATE STAT 10/03/2021 5:12 AM CDT MAGNESIUM STAT 10/03/2021 5:12 AM CDT TRANSFUSE PLATELET PHERESIS STAT 10/03/2021 3:57 AM CDT ORDER PLATELET PHERESIS TIMED 10/03/2021 3:37 AM CDT TYPE & SCREEN STAT 10/03/2021 2:08 AM CDT PARTIAL THROMBOPLASTIN TIME,PTT STAT 10/03/2021 2:08 AM CDT PROTHROMBIN TIME, VENOUS STAT 10/03/2021 2:08 AM CDT COMPREHENSIVE METABOLIC PANEL STAT 10/03/2021 2:08 AM CDT LACTIC ACID STAT 10/03/2021 2:08 AM CDT CBC W/DIFF AUTOMATED STAT 10/03/2021 2:08 AM CDT LIPASE STAT 10/03/2021 2:08 AM CDT RESPIRATORY PCR PANEL 2 Nurse Collected Priority 10/03/2021 1:44 AM CDT ECG 12-LEAD Routine 10/03/2021 12:00 AM CDT ECG 12-LEAD STAT 10/03/2021 12:00 AM CDT PATHOLOGY Routine 10/03/2021 12:00 AM CDT documented in this encounter Results * POCT glucose (10/08/2021 6:08 AM CDT) GLUCOSE POC 94 70 - 109 10/08/2021 7:06 AM CDT [facility] 10/08/2021 6:08 AM CDT Luis Pina MD POCT ORDERABLES - DEVICE Fin al Result Performing Organization Address [facility] Co de Phone Number [facility] [address] [place] [address], [phone] * POCT glucose (10/08/2021 1:10 AM CDT) GLUCOSE POC 86 70 - 109 10/08/2021 1:15 AM CDT [facility] 10/08/2021 1:10 AM CDT Luis Pina MD POCT ORDERABLES - DEVICE Fin al Result Performing Organization Address [facility] de Phone Number [facility] [address] [place] [address], [phone] * (ABNORMAL) BASIC METABOLIC PANEL (10/07/2021 11:56 PM CDT) SODIUM S/P/B 134(L) 136 - 145 MMOL/L 10/08/2021 12:43 AM CDT [facility] POTASSIUM S/P/B 4.8 3.5 - 5.1 MMOL/L 10/08/2021 12:43 AM CDT [facility] Comment:MILD HEMOLYSIS, RESU LT MAY BE AFFECTED. CHLORIDE S/P/B 105 98 - 107 MMOL/L 10/08/2021 12:43 AM CDT [facility] CO2 23.5 21.0 - 32.0 MMOL/L 10/08/2021 12:43 AM CDT [facility] GLUCOSE 87 74 - 106 MG/DL 10/08/2021 12:43 AM CDT [facility] BUN 18 7 - 18 MG/DL 10/08/2021 12:43 AM T [facility] CREATININE S/P/B 0.68 0.55 - 1.02 MG/DL 10/08/2021 12:43 AM CDT [facility] CALCIUM S/P/B 8.7 8.5 - 10.1 MG/DL 10/08/2021 12:43 AM CDT [facility] ANION GAP 5.5 5.0 - 15.0 MMOL/L 10/08/2021 12:43 AM T [facility] OSMOLALITY (CALC) 279 MOSM/KG 022 12:43 AM T [facility] Comment:REFERENCE RANGE NOT ESTABLISHED EGFR NON-AFR. AMER. 84(L) >90 ML/MIN/1. 73 M2 10/08/2021 12:43 AM T [facility] EGFR AFR. AMER. >90 >90 ML/MIN/1. 73 M2 10/08/2021 12:43 AM [facility] GFR NOTES GFR REFERENCE S: 10/08/2021 12:43 AM [facility] Comment: THE ESTIMATED GFR IS CALCULATED USING THE 2009 CKD-EPI EQUATION. THE FOLLOWING CATEGORIES FOR GRADING RENAL FUNCTION ARE RECOMMENDED BY THE [employer]NATIONAL [employer] OF NEPHROLOGY (KDIGO 2012 CLINICAL PRACTICE GUIDELINE). G1,NORMAL OR HIGH: >89 ml/min/1.73 m2 G2,MILDLY DECREASED: 60-89 ml/min/1.73 m2 G3A,MILDLY TO MODERATELY DECREASED: 45-59 ml/min/1.73 m2 G3B,MODERATELY TO SEVERELY DECREASED: 30-44 ml/min/1.73 m2 G4,SEVERELY DECREASED: 15-29 ml/min/1.73 m2 G5,KIDNEY FAILURE: <15 ml/min/1.73 m2 10/07/2021 11:5 6 PM CDT us Ayden Moore MD LABORATORY Final Result Performing Organization Address City/State/[facility] Co de Phone Number [facility] [address] [place] [address], [id number] * MAGNESIUM (10/07/2021 11:56 PM CDT) MAGNESIUM 2.2 1.6 - 2.6 MG/DL 10/08/2021 12:43 AM CDT [facility] Comment:RESULT QUESTIONABLE DUE TO HEMOLYSIS, RECOMMEND RECOLLECTION. 10/07/2021 11:5 6 PM CDT us Ayden Moore MD LABORATORY Final Result Performing Organization Address [facility] Co de Phone Number [facility] [address] [place] [address], [place] [phone] * (ABNORMAL) PHOSPHORUS, INORGANIC PHOSPHATE (10/07/2021 11:56 PM CDT) PHOSPHORUS 1.6(L) 2.5 - 4.9 MG/DL 10/08/2021 12:43 AM CDT [facility] 10/07/2021 11:5 6 PM CDT us Ayden Moore MD LABORATORY Final Result Performing Organization Address [facility] Co de Phone Number [facility] [address] [place] [address], [place] [phone] * (ABNORMAL) CBC, AUTO, NO DIFF (10/07/2021 11:56 PM CDT) WBC 12.0(H) 4.0 - 10.8 x10'3/uL 10/08/2021 12:25 AM CDT [facility] RBC 3.36(L) 4.10 - 5.40 x10'6/uL 10/08/2021 12:25 AM CDT [facility] HGB 9.2(L) 12.0 - 16.0 G/DL 10/08/2021 12:25 AM CDT [facility] HCT 28.2(L) 36.0 - 47.0 % 10/08/2021 12:25 AM CDT [facility] MCV 83.9 78.0 - 100.0 FL 10/08/2021 12:25 AM CDT [facility] MCH 27.4 27.0 - 31.0 PG 10/08/2021 12:25 AM CDT [facility] MCHC 32.6(L) 33.0 - 36.0 G/DL 10/08/2021 12:25 AM CDT [facility] RDW 17.2(H) 11.5 - 14.5 % 10/08/2021 12:25 AM CDT [facility] PLT 171 150 - 350 x10'3/uL 10/08/2021 12:25 AM CDT [facility] MPV 10.7(H) 7.4 - 10.4 FL 10/08/2021 12:25 AM CDT [facility] 10/07/2021 11:5 6 PM CDT us Ayden Moore MD LABORATORY Final Result [facility] [address] [place] [address], [id number] * (ABNORMAL) BASIC METABOLIC PANEL (10/07/2021 3:25 PM CDT) SODIUM S/P/B 137 136 - 145 MMOL/L 10/07/2021 4:01 PM CDT [facility] POTASSIUM S/P/B 3.8 3.5 - 5.1 MMOL/L 10/07/2021 4:01 PM CDT [facility] CHLORIDE S/P/B 102 98 - 107 MMOL/L 10/07/2021 4:01 PM CDT [facility] CO2 23.9 21.0 - 32.0 MMOL/L 10/07/2021 4:01 PM T [facility] GLUCOSE 98 74 - 106 MG/DL 10/07/2021 4:01 PM [facility] BUN 18 7 - 18 MG/DL 10/07/2021 4:01 PM [facility] CREATININE S/P/B 0.67 0.55 - 1.02 MG/DL 10/07/2021 4:01 PM [facility] CALCIUM S/P/B 8.5 8.5 - 10.1 MG/DL 10/07/2021 4:01 PM [facility] ANION GAP 11.1 5.0 - 15.0 MMOL/L 10/07/2021 4:01 PM [facility] OSMOLALITY (CALC) 286 MOSM/KG 022 4:01 PM [facility] Comment:REFERENCE RANGE NOT ESTABLISHED EGFR NON-AFR. AMER. 85(L) >90 ML/MIN/1. 73 M2 10/07/2021 4:01 PM [facility] EGFR AFR. AMER. >90 >90 ML/MIN/1. 73 M2 10/07/2021 4:01 PM [facility] GFR NOTES GFR REFERENCE S: 10/07/2021 4:01 PM [facility] Comment: THE ESTIMATED GFR IS CALCULATED USING THE 2009 CKD-EPI EQUATION. THE FOLLOWING CATEGORIES FOR GRADING RENAL FUNCTION ARE RECOMMENDED BY THE INTERNATIONAL SOCIETY OF NEPHROLOGY (KDIGO 2012 CLINICAL PRACTICE GUIDELINE). G1,NORMAL OR HIGH: >89 ml/min/1.73 m2 G2,MILDLY DECREASED: 60-89 ml/min/1.73 m2 G3A,MILDLY TO MODERATELY DECREASED: 45-59 ml/min/1.73 m2 G3B,MODERATELY TO SEVERELY DECREASED: 30-44 ml/min/1.73 m2 G4,SEVERELY DECREASED: 15-29 ml/min/1.73 m2 G5,KIDNEY FAILURE: <15 ml/min/1.73 m2 10/07/2021 3:25 PM CDT us Ayden Moore MD LABORATORY Final Result [facility] [address] [place] [address], [id number] * XR ABD KUB (10/07/2021 12:40 PM CDT) Anatomical Region Laterality Modality Abdomen Radiographic Montse ging 10/07/2021 2:16 PM CDT Impressions 10/07/2021 2:31 PM CDT IMPRESSION: No radiographic evidence of bowel obstruction. Ordered By: LUIS PINA Interpreted By: Ruth Orr MD, 10/07/2021 2:16 PM Narrative 10/07/2021 2:31 PM CDT HISTORY: ??emesis ?? TECHNIQUE: ??Supine image(s) of the abdomen and pelvis were obtained on 10/05/2021. at 1237 hours. COMPARISON: KUB, 10/05/2021. FINDINGS: LINES OR TUBES: None LUNG BASES: There are trace to small bilateral pleural effusions. BOWEL GAS PATTERN: There are no abnormally dilated loops of bowel. FREE AIR: No free air is detected on this supine exam. CALCIFICATIONS/OTHER: Multilevel midline skin lida are present. MUSCULOSKELETAL: ??Degenerative changes are seen in the visualized portions of the spine. Procedure Note Ruth Orr MD - 10/07/2021 HISTORY: emesis TECHNIQUE: Supine image(s) of the abdomen and pelvis were obtained on10/05/2021. at 1237 hours. COMPARISON: KUB, 10/05/2021. FINDINGS: LINES OR TUBES: None LUNG BASES: There are trace to small bilateral pleural effusions. BOWEL GAS PATTERN: There are no abnormally dilated loops of bowel. FREE AIR: No free air is detected on this supine exam. CALCIFICATIONS/OTHER: Multilevel midline skin lida are present. MUSCULOSKELETAL: Degenerative changes are seen in the visualized portionsof the spine. IMPRESSION: No radiographic evidence of bowel obstruction. Ordered By: LUIS PINA Interpreted By: Ruth Orr MD, 10/07/2021 2:16 PM Luis Pina MD GENERAL IMAGING Final Result * (ABNORMAL) CBC, AUTO, NO DIFF (10/07/2021 8:25 AM CDT) WBC 13.4(H) 4.0 - 10.8 x10'3/uL 10/07/2021 8:55 AM CDT [facility] RBC 3.26(L) 4.10 - 5.40 x10'6/uL 10/07/2021 8:55 AM CDT [facility] HGB 9.0(L) 12.0 - 16.0 G/DL 10/07/2021 8:55 AM CDT [facility] HCT 27.8(L) 36.0 - 47.0 % 10/07/2021 8:55 AM CDT [facility] MCV 85.3 78.0 - 100.0 FL 10/07/2021 8:55 AM CDT [facility] MCH 27.6 27.0 - 31.0 PG 10/07/2021 8:55 AM CDT [facility] MCHC 32.4(L) 33.0 - 36.0 G/DL 10/07/2021 8:55 AM CDT [facility] RDW 17.2(H) 11.5 - 14.5 % 10/07/2021 8:55 AM CDT [facility] PLT 176 150 - 350 x10'3/uL 10/07/2021 8:55 AM CDT [facility] MPV 11.3(H) 7.4 - 10.4 FL 10/07/2021 8:55 AM CDT [facility] 10/07/2021 8:25 AM CDT Kanu Wilcox MD LABORATORY Final Result Performing Organization Address [facility] de Phone Number [facility] [address] [place] [address], [id number] * MAGNESIUM (10/07/2021 5:14 AM CDT) MAGNESIUM 2.5 1.6 - 2.6 MG/DL 10/07/2021 6:06 AM CDT [facility] 10/07/2021 5:14 AM CDT Laura Carrillo NP LABORATORY Final Result Performing Organization Address [facility] de Phone Number [facility] [address] [place] [address], [id number] * (ABNORMAL) PHOSPHORUS, INORGANIC PHOSPHATE (10/07/2021 5:14 AM CDT) PHOSPHORUS 2.1(L) 2.5 - 4.9 MG/DL 10/07/2021 6:06 AM CDT [facility] 10/07/2021 5:14 AM CDT Laura Carrillo NP LABORATORY Final Result Performing Organization Address [facility] de Phone Number [facility] [address] [place] [address], [id number] * (ABNORMAL) BASIC METABOLIC PANEL (10/07/2021 5:14 AM CDT) SODIUM S/P/B 134(L) 136 - 145 MMOL/L 10/07/2021 6:06 AM CDT [facility] POTASSIUM S/P/B 2.8(LL) 3.5 - 5.1 MMOL/L 10/07/2021 6:06 AM [facility] Comment: Critical Result(s) Called to and read back by: ?? TUNDE DE PAZ ??at: 06:04:25 ?? 10/07/2021 by ASTON. CHLORIDE S/P/B 100 98 - 107 MMOL/L 10/07/2021 6:06 AM T [facility] CO2 26.0 21.0 - 32.0 MMOL/L 10/07/2021 6:06 AM [facility] GLUCOSE 93 74 - 106 MG/DL 10/07/2021 6:06 AM [facility] BUN 16 7 - 18 MG/DL 10/07/2021 6:06 AM [facility] CREATININE S/P/B 0.69 0.55 - 1.02 MG/DL 10/07/2021 6:06 AM [facility] CALCIUM S/P/B 8.4(L) 8.5 - 10.1 MG/DL 10/07/2021 6:06 AM [facility] ANION GAP 8.0 5.0 - 15.0 MMOL/L 10/07/2021 6:06 AM [facility] OSMOLALITY (CALC) 279 MOSM/KG 022 6:06 AM [facility] Comment:REFERENCE RANGE NOT ESTABLISHED EGFR NON-AFR. AMER. 84(L) >90 ML/MIN/1. 73 M2 10/07/2021 6:06 AM [facility] EGFR AFR. AMER. >90 >90 ML/MIN/1. 73 M2 10/07/2021 6:06 AM [facility] GFR NOTES GFR REFERENCE S: 10/07/2021 6:06 AM [facility] Comment: THE ESTIMATED GFR IS CALCULATED USING THE 2009 CKD-EPI EQUATION. THE FOLLOWING CATEGORIES FOR GRADING RENAL FUNCTION ARE RECOMMENDED BY THE INTERNATIONAL SOCIETY OF NEPHROLOGY (KDIGO 2012 CLINICAL PRACTICE GUIDELINE). G1,NORMAL OR HIGH: >89 ml/min/1.73 m2 G2,MILDLY DECREASED: 60-89 ml/min/1.73 m2 G3A,MILDLY TO MODERATELY DECREASED: 45-59 ml/min/1.73 m2 G3B,MODERATELY TO SEVERELY DECREASED: 30-44 ml/min/1.73 m2 G4,SEVERELY DECREASED: 15-29 ml/min/1.73 m2 G5,KIDNEY FAILURE: <15 ml/min/1.73 m2 10/07/2021 5:14 AM CDT Laura Carrillo [facility] LABORATORY Final Result Performing Organization Address [facility] de Phone Number [facility] [address] [place] [address], [id number] * Vancomycin Random Level (10/07/2021 5:14 AM CDT) VANCOMYCIN RANDOM 11.5 MCG/ML 10/07/2021 5:56 AM CDT [facility] Comment:REFERENCE RANGE NOT ESTABLISHED 10/07/2021 5:14 AM CDT Hui Carlos [facility] LABORATORY Final Result Performing Organization Address [facility] Phone Number [facility] [address] [place] [address], [id number] * POCT glucose (10/06/2021 11:25 PM CDT) GLUCOSE POC 92 70 - 109 10/06/2021 11:33 PM CDT [facility] 10/06/2021 11:2 5 PM CDT Jorge Guzman MD POCT ORDERABLES - DEVICE Sirena l Result Performing Organization Address [facility] de Phone Number [facility] [address] [place] [address], [id number] * POCT glucose (10/06/2021 6:21 PM CDT) GLUCOSE POC 89 70 - 109 10/06/2021 6:23 PM CDT [facility] 10/06/2021 6:21 PM CDT us Jorge Guzman MD POCT ORDERABLES - DEVICE Sirena l Result Performing Organization Address [facility]/ZIP Co de Phone Number [facility] [address] [place] [address], [place] [phone] * POCT glucose (10/06/2021 11:51 AM CDT) GLUCOSE POC 91 70 - 109 10/06/2021 11:54 AM CDT [facility] 10/06/2021 11:5 1 AM CDT us Jorge Guzman MD POCT ORDERABLES - DEVICE Sirena l Result Performing Organization Address [facility] Co de Phone Number [facility] [address] [place] [address], [place] [phone] * MRSA PCR nares Screening (10/06/2021 9:30 AM CDT) SPECIMEN SOURCE RESPIRATORY, NOSE 10/06/2021 10:30 AM CDT [facility] MRSA BY PCR NASAL METHICILLIN RESISTANT STAPH AUREUS NOT DETECTED 10/07/2021 11:48 AM CDT [facility] NASAL STRUCTURE / Unknown 10/06/2021 9:30 AM CDT us Jorge Guzman MD MICROBIOLOGY - GENERAL ORDERA BLES Final Result Performing Organization Address [facility]/ZIP Co de Phone Number [facility] [address] [place] [address], [place] [phone] * POCT glucose (10/06/2021 8:11 AM CDT) [facility] GLUCOSE POC 88 70 - 109 10/06/2021 8:14 AM CDT [facility] 10/06/2021 8:11 AM CDT Jorge Guzman MD POCT ORDERABLES - DEVICE Sirena l Result Performing Organization Address City/[facility]/ZIP Co de Phone Number [facility] [address] [place] [address], [place] [phone] * POCT glucose (10/06/2021 5:05 AM CDT) [facility] GLUCOSE POC 99 70 - 109 10/06/2021 5:10 AM CDT [facility] 10/06/2021 5:05 AM CDT Jorge Guzman MD POCT ORDERABLES - DEVICE Sirena l Result Performing Organization Address [facility] Co de Phone Number [facility] [address] [place] [address], [place] [phone] * (ABNORMAL) PHOSPHORUS, INORGANIC PHOSPHATE (10/06/2021 5:00 AM CDT) [facility] PHOSPHORUS 1.8(L) 2.5 - 4.9 MG/DL 10/06/2021 6:11 AM CDT [facility] 10/06/2021 5:00 AM CDT Oliver SIMS LABORATORY Final Result Performing Organization Address [facility] Co de Phone Number [facility] [address] [place] [address], [place] [phone] * MAGNESIUM (10/06/2021 5:00 AM CDT) [facility] MAGNESIUM 2.0 1.6 - 2.6 MG/DL 10/06/2021 6:11 AM CDT [facility] 10/06/2021 5:00 AM CDT Oliver SIMS LABORATORY Final Result [facility] [address] [place] [address], [id number] * (ABNORMAL) CBC, AUTO, NO DIFF (10/06/2021 5:00 AM CDT) [facility] WBC 25.0(H) 4.0 - 10.8 x10'3/uL 10/06/2021 5:25 AM CDT [facility] RBC 3.37(L) 4.10 - 5.40 x10'6/uL 10/06/2021 5:25 AM CDT [facility] HGB 9.4(L) 12.0 - 16.0 G/DL 10/06/2021 5:25 AM CDT [facility] HCT 28.7(L) 36.0 - 47.0 % 10/06/2021 5:25 AM CDT [facility] MCV 85.2 78.0 - 100.0 FL 10/06/2021 5:25 AM CDT [facility] MCH 27.9 27.0 - 31.0 PG 10/06/2021 5:25 AM CDT [facility] MCHC 32.8(L) 33.0 - 36.0 G/DL 10/06/2021 5:25 AM CDT [facility] RDW 17.7(H) 11.5 - 14.5 % 10/06/2021 5:25 AM CDT [facility] PLT 136(L) 150 - 350 x10'3/uL 10/06/2021 5:25 AM CDT [facility] MPV 11.5(H) 7.4 - 10.4 FL 10/06/2021 5:25 AM CDT [facility] 10/06/2021 5:00 AM CDT Oliver SIMS LABORATORY Final Result [facility] [address] [place] [address], [phone] * (ABNORMAL) COMPREHENSIVE METABOLIC PANEL (10/06/2021 5:00 AM CDT) SODIUM S/P/B 135(L) 136 - 145 MMOL/L 10/06/2021 6:11 AM CDT [facility] POTASSIUM S/P/B 2.8(LL) 3.5 - 5.1 MMOL/L 10/06/2021 6:11 AM CDT [facility] Comment: Critical Result(s) Called to and read back by: TUNDE NEAL ?? at: 06:05:24 ?? 10/06/2021 by KAMILAH. CHLORIDE S/P/B 100 98 - 107 MMOL/L 10/06/2021 6:11 AM CDT [facility] CO2 30.3 21.0 - 32.0 MMOL/L 10/06/2021 6:11 AM CDT [facility] GLUCOSE 89 74 - 106 MG/DL 10/06/2021 6:11 AM CDT [facility] BUN 15 7 - 18 MG/DL 10/06/2021 6:11 AM CDT [facility] CREATININE S/P/B 0.62 0.55 - 1.02 MG/DL 10/06/2021 6:11 AM CDT [facility] CALCIUM S/P/B 8.7 8.5 - 10.1 MG/DL 10/06/2021 6:11 AM CDT [facility] BILIRUBIN TOTAL S/P/B 0.7 0.2 - 1.0 MG/DL 10/06/2021 6:11 AM T [facility] ALKALINE PHOSPHATASE S/P/B 91 55 - 142 U/L 10/06/2021 6:11 AM T [facility] AST 17 15 - 37 U/L 10/06/2021 6:11 AM T [facility] ALT 27 13 - 56 U/L 10/06/2021 6:11 AM T [facility] TOTAL PROTEIN S/P/B 5.9(L) 6.4 - 8.2 G/DL 10/06/2021 6:11 AM [facility] ALBUMIN S/P/B 2.6(L) 3.4 - 5.0 G/DL 10/06/2021 6:11 AM [facility] ANION GAP 4.7(L) 5.0 - 15.0 MMOL/L 10/06/2021 6:11 AM [facility] OSMOLALITY (CALC) 280 MOSM/KG 022 6:11 AM [facility] Comment:REFERENCE RANGE NOT ESTABLISHED EGFR NON-AFR. AMER. 87(L) >90 ML/MIN/1. 73 M2 10/06/2021 6:11 AM [facility] EGFR AFR. AMER. >90 >90 ML/MIN/1. 73 M2 10/06/2021 6:11 AM [facility] GFR NOTES GFR REFERENCE S: 10/06/2021 6:11 AM [facility] Comment: THE ESTIMATED GFR IS CALCULATED USING THE 2009 CKD-EPI EQUATION. THE FOLLOWING CATEGORIES FOR GRADING RENAL FUNCTION ARE RECOMMENDED BY THE INTERNATIONAL SOCIETY OF NEPHROLOGY (KDIGO 2012 CLINICAL PRACTICE GUIDELINE). G1,NORMAL OR HIGH: >89 ml/min/1.73 m2 G2,MILDLY DECREASED: 60-89 ml/min/1.73 m2 G3A,MILDLY TO MODERATELY DECREASED: 45-59 ml/min/1.73 m2 G3B,MODERATELY TO SEVERELY DECREASED: 30-44 ml/min/1.73 m2 G4,SEVERELY DECREASED: 15-29 ml/min/1.73 m2 G5,KIDNEY FAILURE: <15 ml/min/1.73 m2 10/06/2021 5:00 AM CDT Oliver SIMS LABORATORY Final Result Performing Organization Address [facility] Co de Phone Number [facility] [address] [place] [address], [id number] * (ABNORMAL) POCT glucose (10/05/2021 11:11 PM CDT) GLUCOSE POC 112(H) 70 - 109 10/05/2021 11:32 PM CDT [facility] 10/05/2021 11:1 1 PM CDT us Jorge Guzman MD POCT ORDERABLES - DEVICE Sirena l Result Performing Organization Address [facility] Co de Phone Number [facility] [address] [place] [address], [id number] * (ABNORMAL) POCT glucose (10/05/2021 5:58 PM CDT) GLUCOSE POC 114(H) 70 - 109 10/05/2021 6:10 PM CDT [facility] 10/05/2021 5:58 PM CDT us Jorge Guzman MD POCT ORDERABLES - DEVICE Sirena l Result Performing Organization Address [facility] Co de Phone Number [facility] [address] [place] [address], [phone] * (ABNORMAL) POCT glucose (10/05/2021 11:40 AM CDT) GLUCOSE POC 124(H) 70 - 109 10/05/2021 11:56 AM CDT [facility] 10/05/2021 11:4 0 AM CDT Jorge Guzman MD POCT ORDERABLES - DEVICE Sirena l Result Performing Organization Address [facility] de Phone Number [facility] [address] [place] [address], [phone] * PHOSPHORUS, INORGANIC PHOSPHATE (10/05/2021 4:56 AM CDT) PHOSPHORUS 2.6 2.5 - 4.9 MG/DL 10/05/2021 5:58 AM CDT [facility] 10/05/2021 4:56 AM CDT Madie Jaime MD LABORATORY Final Resul t Performing Organization Address [facility] de Phone Number [facility] [address] [place] [address], [place] [phone] * MAGNESIUM (10/05/2021 4:56 AM CDT) MAGNESIUM 2.3 1.6 - 2.6 MG/DL 10/05/2021 5:58 AM CDT [facility] 10/05/2021 4:56 AM CDT Madie Jaime MD LABORATORY Final Resul t Performing Organization Address [facility] de Phone Number [facility] [address] [place] [address], [id number] * (ABNORMAL) COMPREHENSIVE METABOLIC PANEL (10/05/2021 4:56 AM CDT) SODIUM S/P/B 135(L) 136 - 145 MMOL/L 10/05/2021 5:58 AM CDT [facility] POTASSIUM S/P/B 2.9(LL) 3.5 - 5.1 MMOL/L 10/05/2021 5:58 AM CDT [facility] Comment: Critical Result(s) Called to and read back by: TUNDE MEHTA ?? at: 05:56:38 ?? 10/05/2021 by KAMILAH. CHLORIDE S/P/B 101 98 - 107 MMOL/L 10/05/2021 5:58 AM CDT [facility] CO2 29.5 21.0 - 32.0 MMOL/L 10/05/2021 5:58 AM CDT [facility] GLUCOSE 112(H) 74 - 106 MG/DL 10/05/2021 5:58 AM CDT [facility] BUN 15 7 - 18 MG/DL 10/05/2021 5:58 AM CDT [facility] CREATININE S/P/B 0.81 0.55 - 1.02 MG/DL 10/05/2021 5:58 AM CDT [facility] CALCIUM S/P/B 8.7 8.5 - 10.1 MG/DL 10/05/2021 5:58 AM CDT [facility] BILIRUBIN TOTAL S/P/B 0.6 0.2 - 1.0 MG/DL 10/05/2021 5:58 AM CDT [facility] ALKALINE PHOSPHATASE S/P/B 88 55 - 142 U/L 10/05/2021 5:58 AM CDT [facility] AST 30 15 - 37 U/L 10/05/2021 5:58 AM CDT [facility] ALT 34 13 - 56 U/L 10/05/2021 5:58 AM CDT [facility] TOTAL PROTEIN S/P/B 6.4 6.4 - 8.2 G/DL 10/05/2021 5:58 AM CDT [facility] ALBUMIN S/P/B 2.8(L) 3.4 - 5.0 G/DL 10/05/2021 5:58 AM CDT [facility] ANION GAP 4.5(L) 5.0 - 15.0 MMOL/L 10/05/2021 5:58 AM CDT [facility] OSMOLALITY (CALC) 282 MOSM/KG 022 5:58 AM CDT [facility] Comment:REFERENCE RANGE NOT ESTABLISHED EGFR NON-AFR. AMER. 70(L) >90 ML/MIN/1. 73 M2 10/05/2021 5:58 AM CDT [facility] EGFR AFR. AMER. 81(L) >90 ML/MIN/1. 73 M2 10/05/2021 5:58 AM CDT [facility] GFR NOTES GFR REFERENCE S: 10/05/2021 5:58 AM CDT [facility] Comment: THE ESTIMATED GFR IS CALCULATED USING THE 2009 CKD-EPI EQUATION. THE FOLLOWING CATEGORIES FOR GRADING RENAL FUNCTION ARE RECOMMENDED BY THE [employer] OF NEPHROLOG[employer] (KDIGO 2012 CLINICAL PRACTICE GUIDELINE). G1,NORMAL OR HIGH: >89 ml/min/1.73 m2 G2,MILDLY DECREASED: 60-89 ml/min/1.73 m2 G3A,MILDLY TO MODERATELY DECREASED: 45-59 ml/min/1.73 m2 G3B,MODERATELY TO SEVERELY DECREASED: 30-44 ml/min/1.73 m2 G4,SEVERELY DECREASED: 15-29 ml/min/1.73 m2 G5,KIDNEY FAILURE: <15 ml/min/1.73 m2 10/05/2021 4:56 AM CDT us Mdaie Jaime MD LABORATORY Final Resul t [facility] [address] [place] [address], [id number] * (ABNORMAL) CBC, AUTO, NO DIFF (10/05/2021 4:56 AM CDT) WBC 42.0(H) 4.0 - 10.8 x10'3/uL 10/05/2021 5:24 AM CDT [facility] RBC 3.43(L) 4.10 - 5.40 x10'6/uL 10/05/2021 5:24 AM CDT [facility] HGB 9.3(L) 12.0 - 16.0 G/DL 10/05/2021 5:24 AM CDT [facility] HCT 28.5(L) 36.0 - 47.0 % 10/05/2021 5:24 AM CDT [facility] MCV 83.1 78.0 - 100.0 FL 10/05/2021 5:24 AM CDT [facility] MCH 27.1 27.0 - 31.0 PG 10/05/2021 5:24 AM CDT [facility] MCHC 32.6(L) 33.0 - 36.0 G/DL 10/05/2021 5:24 AM CDT [facility] RDW 17.9(H) 11.5 - 14.5 % 10/05/2021 5:24 AM CDT [facility] PLT 123(L) 150 - 350 x10'3/uL 10/05/2021 5:35 AM CDT [facility] MPV 10.5(H) 7.4 - 10.4 FL 10/05/2021 5:35 AM CDT [facility] 10/05/2021 4:56 AM CDT us Madie Jaime MD LABORATORY Final Resul t [facility] [address] [place] [address], [id number] * (ABNORMAL) POCT glucose (10/04/2021 11:44 PM CDT) GLUCOSE POC 149(H) 70 - 109 10/04/2021 11:46 PM CDT [facility] Comment:RN Notified 10/04/2021 11:4 4 PM CDT us Jorge Guzman MD POCT ORDERABLES - DEVICE Sirena l Result Performing Organization Address [facility] Co de Phone Number [facility] [address] [place] [address], [place] [phone] * CULTURE, BACTERIA BLOOD X2 (10/04/2021 10:02 PM CDT) SPEC DESCRIPTION BLOOD LINE 10/04/2021 8:21 PM CDT [facility] SPECIAL REQUESTS NO SPECIAL REQUEST 10/04/2021 8:21 PM CDT [facility] CULTURE RESULT NO GROWTH 5 DAYS 10/09/2021 11:45 PM CDT [facility] BLOOD SPECIMEN OBTAINED FOR BLOOD CULTURE / Unknown 10/04/2021 10:02 PM CDT 10/04/2021 10:26 PM CDT us Jorge Guzman MD MICROBIOLOGY - GENERAL ORDERA BLES Final Result Performing Organization Address [facility] Co de Phone Number [facility] [address] [place] [address], [place] [phone] * CULTURE, BACTERIA BLOOD X2 (10/04/2021 9:54 PM CDT) SPEC DESCRIPTION BLOOD 10/04/2021 8:21 PM CDT [facility] SPECIAL REQUESTS NO SPECIAL REQUEST 10/04/2021 8:21 PM CDT [facility] CULTURE RESULT NO GROWTH 5 DAYS 10/09/2021 11:45 PM CDT [facility] BLOOD SPECIMEN OBTAINED FOR BLOOD CULTURE / Unknown 10/04/2021 9:54 PM CDT 10/04/2021 10:24 PM CDT us Jorge Guzman MD MICROBIOLOGY - GENERAL ORDERA BLES Final Result [facility] [address] [place] [address], [id number] * XR CHEST PORTABLE (10/04/2021 9:18 PM CDT) Anatomical Region Laterality Modality Chest Radiographic Montse ging 10/04/2021 9:26 PM CDT Impressions 10/04/2021 9:29 PM CDT IMPRESSION: 1. Probable new pneumonia in the left lower lobe with associated effusion. Ordered By: JORGE GUZMAN Interpreted By: Mele Larson MD, 10/04/2021 9:26 PM Narrative 10/04/2021 9:29 PM CDT Examination: X-ray chest, 1 view Exam time: 10/04/2021 at 2109 hours Clinical history: INCREASING FEVER, SEPSIS ALERT Comparison: 10/02/2021 Technique: Single frontal upright view of the chest obtained. FINDINGS: Left retrocardiac atelectasis/consolidation/effusion. Low lung volumes. No pneumothorax. Cardiomediastinal silhouette unchanged. Atherosclerosis. Enteric tube courses past gastroesophageal junction with tip not visualized. Right jugular central venous catheter unchanged. Surgical lida. Procedure Note Mele Larson MD - 10/04/2021 Examination: X-ray chest, 1 view Exam time: 10/04/2021 at 2109 hours Clinical history: INCREASING FEVER, SEPSIS ALERT Comparison: 10/02/2021 Technique: Single frontal upright view of the chest obtained. FINDINGS: Left retrocardiac atelectasis/consolidation/effusion. Low lung volumes. Nopneumothorax. Cardiomediastinal silhouette unchanged. Atherosclerosis.Enteric tube courses past gastroesophageal junction with tip notvisualized. Right jugular central venous catheter unchanged. Surgicalstaples. IMPRESSION: 1. Probable new pneumonia in the left lower lobe with associatedeffusion. Ordered By: JORGE GUZMAN Interpreted By: Mele Larson MD, 10/04/2021 9:26 PM us Jorge Guzman MD GENERAL IMAGING Final Result * LACTIC ACID - SINGLE (10/04/2021 8:37 PM CDT) LACTIC ACID VENOUS 1.1 0.4 - 2.0 MMOL/L 10/04/2021 9:12 PM CDT [facility] 10/04/2021 8:37 PM CDT us Jorge Guzman MD LABORATORY Final Result Performing Organization Address [facility] Co de Phone Number [facility] [address] [place] [address], [place] [phone] * (ABNORMAL) POCT glucose (10/04/2021 5:15 PM CDT) GLUCOSE POC 151(H) 70 - 109 10/04/2021 5:45 PM CDT [facility] 10/04/2021 5:15 PM CDT us Jorge Guzman MD POCT ORDERABLES - DEVICE Sirena l Result Performing Organization Address [facility] Co de Phone Number [facility] [address] [place] [id number], [place] [phone] * (ABNORMAL) POCT glucose (10/04/2021 10:57 AM CDT) GLUCOSE POC 142(H) 70 - 109 10/04/2021 11:32 AM CDT [facility] 10/04/2021 10:5 7 AM CDT us Jorge Guzman MD POCT ORDERABLES - DEVICE Sirena l Result Performing Organization Address City/[facility]/ZIP Co de Phone Number [facility] [address] [place] [id number], [phone] * (ABNORMAL) POCT glucose (10/04/2021 5:48 AM CDT) Pathologist [facility] GLUCOSE POC 155(H) 70 - 109 10/04/2021 5:56 AM CDT [facility] Comment:RN Notified 10/04/2021 5:48 AM CDT Jorge Guzman MD POCT ORDERABLES - DEVICE Sirena l Result [facility] [address] [place] [address], [phone] * (ABNORMAL) CBC W/DIFF AUTOMATED (10/04/2021 3:45 AM CDT) Pathologist [facility] WBC 25.0(H) 4.0 - 10.8 x10'3/uL 10/04/2021 4:13 AM CDT [facility] RBC 3.52(L) 4.10 - 5.40 x10'6/uL 10/04/2021 4:13 AM CDT [facility] HGB 9.7(L) 12.0 - 16.0 G/DL 10/04/2021 4:13 AM CDT [facility] HCT 28.6(L) 36.0 - 47.0 % 10/04/2021 4:13 AM CDT [facility] MCV 81.3 78.0 - 100.0 FL 10/04/2021 4:13 AM CDT [facility] MCH 27.6 27.0 - 31.0 PG 10/04/2021 4:13 AM CDT [facility] MCHC 33.9 33.0 - 36.0 G/DL 10/04/2021 4:13 AM CDT [facility] RDW 18.2(H) 11.5 - 14.5 % 10/04/2021 4:13 AM T [facility] PLT 129(L) 150 - 350 x10'3/uL 10/04/2021 4:31 AM T [facility] MPV 10.8(H) 7.4 - 10.4 FL 10/04/2021 4:31 AM T [facility] ABS. NEUTROPHILS 18.25(H) 1.60 - 8.30 x10'3/uL 10/04/2021 4:33 AM T [facility] ABS. NEUTROPHILS CALCULATED 17.00(H) 1.60 - 7.30 x10'3/uL 10/04/2021 4:33 AM T [facility] BANDS 1.25(H) 0.00 - 1.00 x10'3/uL 10/04/2021 4:33 AM [facility] ABS. LYMPHOCYTES 1.00 0.80 - 4.70 x10'3/uL 10/04/2021 4:33 AM T [facility] ABS. MONOCYTES 5.75(H) 0.00 - 1.50 x10'3/uL 10/04/2021 4:33 AM [facility] ABS. EOSINOPHILS 0.00 0.00 - 0.40 x10'3/uL 10/04/2021 4:33 AM [facility] ABS. BASOPHILS 0.00 0.00 - 0.20 x10'3/uL 10/04/2021 4:33 AM [facility] ABS. NUCLEATED RBC'S 0.00 0.0 x10'3/uL 10/04/2021 4:33 AM [facility] RBC MORPHOLOGY ANISOCYTOSIS 10/05/19 4:33 AM [facility] Comment: SLIGHT POLYCHROMASIA SLIGHT POIKILOCYTOSIS SLIGHT OVALOCYTES [employer] CELLS DANTE CELLS PLT MORPH. LOW 10/04/2021 4:33 AM [facility] 10/04/2021 3:45 AM CDT us Jorge Guzman MD LABORATORY Final Result Performing Organization Address [facility] Co de Phone Number [facility] [address] [place] [address], [place] [phone] * (ABNORMAL) PHOSPHORUS, INORGANIC PHOSPHATE (10/04/2021 3:45 AM CDT) PHOSPHORUS 2.2(L) 2.5 - 4.9 MG/DL 10/04/2021 5:00 AM CDT [facility] 10/04/2021 3:45 AM CDT us Jorge Guzman MD LABORATORY Final Result Performing Organization Address [facility] Co de Phone Number [facility] [address] [place] [address], [phone] * MAGNESIUM (10/04/2021 3:45 AM CDT) MAGNESIUM 2.1 1.6 - 2.6 MG/DL 10/04/2021 5:00 AM CDT [facility] 10/04/2021 3:45 AM CDT us Jorge Guzman MD LABORATORY Final Result Performing Organization Address [facility] Co de Phone Number [facility] [address] [place] [address], [place] [phone] * (ABNORMAL) BASIC METABOLIC PANEL (10/04/2021 3:45 AM CDT) SODIUM S/P/B 136 136 - 145 MMOL/L 10/04/2021 5:00 AM CDT [facility] POTASSIUM S/P/B 3.3(L) 3.5 - 5.1 MMOL/L 10/04/2021 5:00 AM [facility] CHLORIDE S/P/B 106 98 - 107 MMOL/L 10/04/2021 5:00 AM [facility] CO2 27.3 21.0 - 32.0 MMOL/L 10/04/2021 5:00 AM [facility] GLUCOSE 143(H) 74 - 106 MG/DL 10/04/2021 5:00 AM [facility] BUN 13 7 - 18 MG/DL 10/04/2021 5:00 AM [facility] CREATININE S/P/B 0.86 0.55 - 1.02 MG/DL 10/04/2021 5:00 AM [facility] CALCIUM S/P/B 8.3(L) 8.5 - 10.1 MG/DL 10/04/2021 5:00 AM [facility] ANION GAP 2.7(L) 5.0 - 15.0 MMOL/L 10/04/2021 5:00 AM [facility] OSMOLALITY (CALC) 285 MOSM/KG 022 5:00 AM [facility] Comment:REFERENCE RANGE NOT ESTABLISHED EGFR NON-AFR. AMER. 65(L) >90 ML/MIN/1. 73 M2 10/04/2021 5:00 AM [facility] EGFR AFR. AMER. 76(L) >90 ML/MIN/1. 73 M2 10/04/2021 5:00 AM [facility] GFR NOTES GFR REFERENCE S: 10/04/2021 5:00 AM [facility] Comment: THE ESTIMATED GFR IS CALCULATED USING THE 2009 CKD-EPI EQUATION. THE FOLLOWING CATEGORIES FOR GRADING RENAL FUNCTION ARE RECOMMENDED BY THE INTERNATIONAL SOCIETY OF NEPHROLOGY (KDIGO 2012 CLINICAL PRACTICE GUIDELINE). G1,NORMAL OR HIGH: >89 ml/min/1.73 m2 G2,MILDLY DECREASED: 60-89 ml/min/1.73 m2 G3A,MILDLY TO MODERATELY DECREASED: 45-59 ml/min/1.73 m2 G3B,MODERATELY TO SEVERELY DECREASED: 30-44 ml/min/1.73 m2 G4,SEVERELY DECREASED: 15-29 ml/min/1.73 m2 G5,KIDNEY FAILURE: <15 ml/min/1.73 m2 10/04/2021 3:45 AM CDT us Jorge Guzman MD LABORATORY Final Result Performing Organization Address [facility] Co de Phone Number [facility] [address] [place] [address], [place] [phone] * (ABNORMAL) POCT glucose (10/03/2021 10:56 PM CDT) GLUCOSE POC 183(H) 70 - 109 10/03/2021 11:14 PM CDT [facility] Comment:RN Notified 10/03/2021 10:5 6 PM CDT us Jorge Guzman MD POCT ORDERABLES - DEVICE Sirena l Result Performing Organization Address [facility] de Phone Number [facility] [address] [place] [address], [place] [phone] * (ABNORMAL) HEMOGLOBIN AND HEMATOCRIT (10/03/2021 9:03 PM CDT) HGB 10.5(L) 12.0 - 16.0 G/DL 10/03/2021 9:14 PM CDT [facility] HCT 30.8(L) 36.0 - 47.0 % 10/03/2021 9:14 PM CDT [facility] 10/03/2021 9:03 PM CDT us Jorge Guzman MD LABORATORY Final Result Performing Organization Address [facility] Co de Phone Number [facility] [address] [place] [address], [place] [phone] * TRANSFUSE PLATELET PHERESIS (10/03/2021 7:35 PM CDT) us Miley Mohan MD NURSING TREATMENT ORDERABLES - BLOOD ADMIN Edited Result - Final * TRANSFUSE PLATELET PHERESIS, 1 Units (10/03/2021 7:35 PM CDT) us Miley Mohan MD NURSING TREATMENT ORDERABLES - BLOOD ADMIN Edited Result - Final * (ABNORMAL) POCT glucose (10/03/2021 3:30 PM CDT) Pathologist [facility] GLUCOSE POC 143(H) 70 - 109 10/03/2021 3:42 PM CDT [facility] 10/03/2021 3:30 PM CDT us Jorge Guzman MD POCT ORDERABLES - DEVICE Sirena l Result Performing Organization Address [facility] Co de Phone Number [facility] [address] [place] [address], [place] [phone] * (ABNORMAL) HEMOGLOBIN AND HEMATOCRIT (10/03/2021 3:17 PM CDT) [facility] HGB 11.1(L) 12.0 - 16.0 G/DL 10/03/2021 3:40 PM CDT [facility] HCT 32.2(L) 36.0 - 47.0 % 10/03/2021 3:40 PM CDT [facility] 10/03/2021 3:17 PM CDT us Jorge Guzman MD LABORATORY Final Result Performing Organization Address [facility] Co de Phone Number [facility] [address] [place] [address], [place] [phone] * XR ABD KUB (10/03/2021 12:26 PM CDT) Anatomical Region Laterality Modality Abdomen Radiographic Montse ging 10/03/2021 12:5 1 PM CDT Impressions 10/03/2021 12:53 PM CDT IMPRESSION: The enteric tube terminates within the distal gastric body. Ordered By: JORGE GUZMAN Interpreted By: Ruth Orr MD, 10/03/2021 12:51 PM Narrative 10/03/2021 12:53 PM CDT HISTORY: ??NG tube placement ?? TECHNIQUE: ??Supine image(s) of the abdomen and pelvis were obtained on 10/03/2021 at 1224 hours. COMPARISON: CT abdomen pelvis with contrast, 09/22/2021 FINDINGS: LINES OR TUBES: The enteric tube tip terminates within the distal gastric body. LUNG BASES: Unremarkable. BOWEL GAS PATTERN: There are no abnormally dilated loops of bowel. FREE AIR: No free air is detected on this supine exam. CALCIFICATIONS/OTHER: Multiple midline surgical skin lida are present. MUSCULOSKELETAL: ??Degenerative changes are seen in the visualized portions of the spine. Procedure Note Ruth Orr MD - 10/03/2021 HISTORY: NG tube placement TECHNIQUE: Supine image(s) of the abdomen and pelvis were obtained on10/03/2021 at 1224 hours. COMPARISON: CT abdomen pelvis with contrast, 09/22/2021 FINDINGS: LINES OR TUBES: The enteric tube tip terminates within the distal gastricbody. LUNG BASES: Unremarkable. BOWEL GAS PATTERN: There are no abnormally dilated loops of bowel. FREE AIR: No free air is detected on this supine exam. CALCIFICATIONS/OTHER: Multiple midline surgical skin lida arepresent. MUSCULOSKELETAL: Degenerative changes are seen in the visualized portionsof the spine. IMPRESSION: The enteric tube terminates within the distal gastric body. Ordered By: JORGE GUZAMN Interpreted By: Ruth Orr MD, 10/03/2021 12:51 PM us Jorge Guzman MD GENERAL IMAGING Final Result * (ABNORMAL) HEMOGLOBIN AND HEMATOCRIT (10/03/2021 11:06 AM CDT) HGB 10.9(L) 12.0 - 16.0 G/DL 10/03/2021 11:23 AM CDT [facility] Comment:RESULTS VERIFIED BY [place] SPECIMEN. HCT 32.1(L) 36.0 - 47.0 % 10/03/2021 11:23 AM CDT [facility] 10/03/2021 11:0 6 AM CDT Jorge Guzman MD LABORATORY Final Result Performing Organization Address [facility]/ZIP Co de Phone Number [facility] [address] [place] [address], [phone] * (ABNORMAL) POCT glucose (10/03/2021 10:31 AM CDT) GLUCOSE POC 175(H) 70 - 109 10/03/2021 10:56 AM CDT [facility] 10/03/2021 10:3 1 AM CDT Jorge Guzman MD POCT ORDERABLES - DEVICE Sirena l Result Performing Organization Address [facility]/ZIP Co de Phone Number [facility] [address] [place] [address], [place] [phone] * TRANSFUSE RED BLOOD CELLS (10/03/2021 8:18 AM CDT) us Jordan Dennis MD NURSING TREATMENT ORDERABLES - BLOOD ADMIN Edited Result - Final * TRANSFUSE FRESH FROZEN PLASMA (10/03/2021 8:02 AM CDT) Luis Pina MD NURSING TREATMENT ORDERABLES - BLOOD ADMIN Edited Result - Final * TRANSFUSE FRESH FROZEN PLASMA, 2 Units (10/03/2021 8:02 AM CDT) Luis Pina MD NURSING TREATMENT ORDERABLES - BLOOD ADMIN Edited Result - Final * TRANSFUSE FRESH FROZEN PLASMA (10/03/2021 7:31 AM CDT) us Luis Pina MD NURSING TREATMENT ORDERABLES - BLOOD ADMIN Edited Result - Final * TRANSFUSE RED BLOOD CELLS (10/03/2021 7:28 AM CDT) us Jordan Dennis MD NURSING TREATMENT ORDERABLES - BLOOD ADMIN Edited Result - Final * (ABNORMAL) CBC W/DIFF AUTOMATED (10/03/2021 7:20 AM CDT) [facility] WBC 10.1 4.0 - 10.8 x10'3/uL 10/03/2021 8:30 AM CDT [facility] RBC 2.65(L) 4.10 - 5.40 x10'6/uL 10/03/2021 8:30 AM CDT [facility] HGB 7.4(L) 12.0 - 16.0 G/DL 10/03/2021 8:30 AM CDT [facility] HCT 22.5(L) 36.0 - 47.0 % 10/03/2021 8:30 AM CDT [facility] MCV 84.9 78.0 - 100.0 FL 10/03/2021 8:30 AM CDT [facility] MCH 27.9 27.0 - 31.0 PG 10/03/2021 8:30 AM CDT [facility] MCHC 32.9(L) 33.0 - 36.0 G/DL 10/03/2021 8:30 AM CDT [facility] RDW 17.7(H) 11.5 - 14.5 % 10/03/2021 8:30 AM CDT [facility] PLT 153 150 - 350 x10'3/uL 10/03/2021 8:30 AM CDT [facility] MPV 10.9(H) 7.4 - 10.4 FL 10/03/2021 8:30 AM CDT [facility] ABS. NEUTROPHILS 6.67 1.60 - 8.30 x10'3/uL 10/03/2021 9:37 AM CDT [facility] ABS. NEUTROPHILS CALCULATED 5.76 1.60 - 7.30 x10'3/uL 10/03/2021 9:37 AM CDT [facility] BANDS 0.91 0.00 - 1.00 x10'3/uL 10/03/2021 9:37 AM CDT [facility] ABS. LYMPHOCYTES 0.51(L) 0.80 - 4.70 x10'3/uL 10/03/2021 9:37 AM CDT [facility] ABS. MONOCYTES 2.93(H) 0.00 - 1.50 x10'3/uL 10/03/2021 9:37 AM CDT [facility] ABS. EOSINOPHILS 0.00 0.00 - 0.40 x10'3/uL 10/03/2021 9:37 AM CDT [facility] ABS. BASOPHILS 0.00 0.00 - 0.20 x10'3/uL 10/03/2021 9:37 AM CDT [facility] ABS. NUCLEATED RBC'S 0.00 0.0 x10'3/uL 10/03/2021 9:37 AM CDT [facility] RBC MORPHOLOGY ANISOCYTOSIS 10/04/19 9:37 AM CDT [facility] Comment: SLIGHT POIKILOCYTOSIS SLIGHT OVALOCYTES ACANTHOCYTES DANTE CELLS PLT MORPH. NORMAL 10/03/2021 9:37 AM CDT [facility] 10/03/2021 7:20 AM CDT Luis Pina MD LABORATORY Final Result [facility] [address] [place] [address], [id number] * (ABNORMAL) POCT ACUTE ARTERIAL PANEL (10/03/2021 7:14 AM CDT) SODIUM WHOLE BLOOD 140 138 - 146 mmol/L 10/03/2021 10:01 AM CDT [facility] POTASSIUM WHOLE BLOOD 4.4 3.5 - 4.9 mmol/L 10/03/2021 10:01 AM CDT [facility] CA IONIZED WH BLOOD 1.03(L) 1.12 - 1.32 mmol/L 10/03/2021 10:01 AM CDT [facility] POC PH ARTERIAL 7.420 7.35 - 7.45 10/03/2021 10:01 AM CDT [facility] POC PCO2 ARTERIAL 35.4 35.0 - 45.0 MMHG 10/03/2021 10:01 AM T [facility] POC PO2 ARTERIAL 291(H) 80 - 105 MMHG 10/03/2021 10:01 AM T [facility] POC HCO3 ARTERIAL 23.0 22 - 26 MMOL/L 10/03/2021 10:01 AM T [facility] POC TCO2 ARTERIAL 24 23 - 27 MMOL/L 10/03/2021 10:01 AM CDT [facility] POC BASE DEFICIT ARTERIAL 2 0 - 2 MMOL/L 10/03/2021 10:01 AM T [facility] POC HEMATOCRIT 17(L) 38 - 51 % 10/03/2021 10:01 AM T [facility] TIME TEST WAS PERFORMED: 714 10/03/2021 10:01 AM T [facility] 10/03/2021 7:14 AM CDT us Jorge Guzman MD POCT ORDERABLES - DEVICE Sirena l Result [facility] [address] [place] [address], [id number] * TRANSFUSE RED BLOOD CELLS (10/03/2021 6:45 AM CDT) us Jordan Dennis MD NURSING TREATMENT ORDERABLES - BLOOD ADMIN Edited Result - Final * ORDER FRESH FROZEN PLASMA, 2 Units (10/03/2021 6:45 AM CDT) UNITS ORDERED 2 10/03/2021 6:46 AM CDT [facility] BLOOD UNIT NUMBER [id number] 10/03/2021 6:50 AM CDT [facility] PRODUCT: THAWED PLASMA 10/03/2021 6:50 AM CDT [facility] UNIT DIVISION 00 10/03/2021 6:50 AM CDT [facility] BLOOD UNIT STATUS TRANSFUSED,FINAL 10/04/2021 12:40 AM CDT [facility] ISSUE DATE/TIME 12:40 AM CDT [facility] PRODUCT CODE [id number] 10/04/2021 12:40 AM CDT [facility] ABO/RH Unit A POS 10/04/2021 12:40 AM CDT [facility] ABO/RH UNIT ISBT CODE [id number] 10/04/2021 12:40 AM CDT [facility] BLOOD UNIT EXPIRATION DATE 10/04/2021 12:40 AM CDT [facility] TRANSFUSION STATUS OK TO TRANSFUSE 10/03/2021 6:50 AM CDT [facility] BLOOD UNIT NUMBER [id number] 10/03/2021 6:50 AM CDT [facility] PRODUCT: THAWED PLASMA BAG 3 10/03/2021 6:50 AM CDT [facility] UNIT DIVISION 00 10/03/2021 6:50 AM CDT [facility] BLOOD UNIT STATUS TRANSFUSED,FINAL 10/04/2021 12:40 AM CDT [facility] ISSUE DATE/TIME 12:40 AM CDT [facility] PRODUCT CODE [id number] 10/04/2021 12:40 AM CDT [facility] ABO/RH Unit AB POS 10/04/2021 12:40 AM CDT [facility] ABO/RH UNIT ISBT CODE 8400 10/04/2021 12:40 AM CDT [facility] BLOOD UNIT EXPIRATION DATE [id number] 10/04/2021 12:40 AM CDT [facility] TRANSFUSION STATUS OK TO TRANSFUSE 10/03/2021 6:50 AM CDT [facility] 10/03/2021 6:45 AM CDT Luis Pina MD BLOOD BANK PRODUCT ORDERABLE S Final Result [facility] [address] [place] [address], [id number] * (ABNORMAL) POCT ACUTE ARTERIAL PANEL (10/03/2021 6:35 AM CDT) SODIUM WHOLE BLOOD 141 138 - 146 mmol/L 10/03/2021 10:01 AM CDT [facility] POTASSIUM WHOLE BLOOD 4.3 3.5 - 4.9 mmol/L 10/03/2021 10:01 AM CDT [facility] CA IONIZED WH BLOOD 1.07(L) 1.12 - 1.32 mmol/L 10/03/2021 10:01 AM CDT [facility] POC PH ARTERIAL 7.446 7.35 - 7.45 10/03/2021 10:01 AM CDT [facility] POC PCO2 ARTERIAL 33.3(L) 35.0 - 45.0 MMHG 10/03/2021 10:01 AM CDT [facility] POC PO2 ARTERIAL 258(H) 80 - 105 MMHG 10/03/2021 10:01 AM CDT [facility] POC HCO3 ARTERIAL 22.9 22 - 26 MMOL/L 10/03/2021 10:01 AM CDT [facility] POC TCO2 ARTERIAL 24 23 - 27 MMOL/L 10/03/2021 10:01 AM CDT [facility] POC BASE DEFICIT ARTERIAL 1 0 - 2 MMOL/L 10/03/2021 10:01 AM CDT [facility] POC HEMATOCRIT 17(L) 38 - 51 % 10/03/2021 10:01 AM CDT [facility] TIME TEST WAS PERFORMED: 635 10/03/2021 10:01 AM CDT [facility] 10/03/2021 6:35 AM CDT us Jorge Guzman MD POCT ORDERABLES - DEVICE Sirena l Result Performing Organization Address [facility] Co de Phone Number [facility] [address] [place] [address], [phone] * (ABNORMAL) POCT glucose (10/03/2021 6:29 AM CDT) GLUCOSE POC 146(H) 70 - 109 10/03/2021 10:01 AM CDT [facility] 10/03/2021 6:29 AM CDT us Jorge Guzman MD POCT ORDERABLES - DEVICE Sirena l Result Performing Organization Address [facility] [facility] de Phone Number [facility] [address] [id number], [place] [phone] * HEMOGLOBIN, GLYCOSYLATED (10/03/2021 5:12 AM CDT) HGB A1C 5.6 <5.7 % 10/03/2021 6:20 AM CDT [facility] ESTIMATED AVG GLUCOSE 114 74 - 114 MG/DL 10/03/2021 6:20 AM CDT [facility] 10/03/2021 5:12 AM CDT Diana Jones Sanjay [facility] Final Result Performing Organization Address [facility] Co de Phone Number [facility] [address] [place] [address], [place] [phone] * (ABNORMAL) PROTHROMBIN TIME, VENOUS (10/03/2021 5:12 AM CDT) PROTIME 15.0(H) 10.2 - 12.9 SEC 10/03/2021 5:49 AM CDT [facility] INR 1.3(H) 0.9 - 1.1 10/03/2021 5:49 AM CDT [facility] 10/03/2021 5:12 AM CDT us Diana [facility] Final Result Performing Organization Address [facility] de Phone Number [facility] [address] [place] [address], [place] [phone] * PHOSPHORUS, INORGANIC PHOSPHATE (10/03/2021 5:12 AM CDT) PHOSPHORUS 3.5 2.5 - 4.9 MG/DL 10/03/2021 6:07 AM CDT [facility] 10/03/2021 5:12 AM CDT Diana Karen [facility] Final Result Performing Organization Address [facility] de Phone Number [facility] [address] [place] [address], [place] [phone] * (ABNORMAL) LACTIC ACID (10/03/2021 5:12 AM CDT) LACTIC ACID VENOUS 2.4(H) 0.4 - 2.0 MMOL/L 10/03/2021 5:56 AM CDT [facility] Comment: AN ORDER FOR A REPEAT LACTIC ACID TEST IS REQUIRED WITHIN 6 HOURS OF DIAGNOSIS ON A PATIENT WITH SEVERE SEPSIS. 10/03/2021 5:12 AM CDT us Diana [facility] Final Result Performing Organization Address [facility] de Phone Number [facility] [address] [place] [address], [phone] * MAGNESIUM (10/03/2021 5:12 AM CDT) MAGNESIUM 2.5 1.6 - 2.6 MG/DL 10/03/2021 6:07 AM CDT [facility] 10/03/2021 5:12 AM CDT us Diana [facility] Final Result Performing Organization Address [facility] de Phone Number [facility] [address] [place] [address], [place] [phone] * (ABNORMAL) COMPREHENSIVE METABOLIC PANEL (10/03/2021 5:12 AM CDT) SODIUM S/P/B 138 136 - 145 MMOL/L 10/03/2021 6:07 AM CDT [facility] POTASSIUM S/P/B 4.5 3.5 - 5.1 MMOL/L 10/03/2021 6:07 AM CDT [facility] CHLORIDE S/P/B 110(H) 98 - 107 MMOL/L 10/03/2021 6:07 AM CDT [facility] CO2 21.1 21.0 - 32.0 MMOL/L 10/03/2021 6:07 AM CDT [facility] GLUCOSE 156(H) 74 - 106 MG/DL 10/03/2021 6:07 AM CDT [facility] BUN 25(H) 7 - 18 MG/DL 10/03/2021 6:07 AM T [facility] CREATININE S/P/B 0.93 0.55 - 1.02 MG/DL 10/03/2021 6:07 AM T [facility] CALCIUM S/P/B 8.2(L) 8.5 - 10.1 MG/DL 10/03/2021 6:07 AM T [facility] BILIRUBIN TOTAL S/P/B 0.9 0.2 - 1.0 MG/DL 10/03/2021 6:07 AM T [facility] ALKALINE PHOSPHATASE S/P/B 65 55 - 142 U/L 10/03/2021 6:07 AM [facility] AST 16 15 - 37 U/L 10/03/2021 6:07 AM [facility] ALT 21 13 - 56 U/L 10/03/2021 6:07 AM [facility] TOTAL PROTEIN S/P/B 6.3(L) 6.4 - 8.2 G/DL 10/03/2021 6:07 AM [facility] ALBUMIN S/P/B 3.2(L) 3.4 - 5.0 G/DL 10/03/2021 6:07 AM [facility] ANION GAP 6.9 5.0 - 15.0 MMOL/L 10/03/2021 6:07 AM [facility] OSMOLALITY (CALC) 294 MOSM/KG 022 6:07 AM [facility] Comment:REFERENCE RANGE NOT ESTABLISHED EGFR NON-AFR. AMER. 59(L) >90 ML/MIN/1. 73 M2 10/03/2021 6:07 AM [facility] EGFR AFR. AMER. 69(L) >90 ML/MIN/1. 73 M2 10/03/2021 6:07 AM [facility] GFR NOTES GFR REFERENCE S: 10/03/2021 6:07 AM CDT [facility] Comment: THE ESTIMATED GFR IS CALCULATED USING THE 2009 CKD-EPI EQUATION. THE FOLLOWING CATEGORIES FOR GRADING RENAL FUNCTION ARE RECOMMENDED BY THE INTERNATIONAL SOCIETY OF NEPHROLOGY (KDIGO 2012 CLINICAL PRACTICE GUIDELINE). G1,NORMAL OR HIGH: >89 ml/min/1.73 m2 G2,MILDLY DECREASED: 60-89 ml/min/1.73 m2 G3A,MILDLY TO MODERATELY DECREASED: 45-59 ml/min/1.73 m2 G3B,MODERATELY TO SEVERELY DECREASED: 30-44 ml/min/1.73 m2 G4,SEVERELY DECREASED: 15-29 ml/min/1.73 m2 G5,KIDNEY FAILURE: <15 ml/min/1.73 m2 10/03/2021 5:12 AM CDT us Diana [facility] Final Result [facility] [address] [place] [id number], [phone] * (ABNORMAL) CBC, AUTO, NO DIFF (10/03/2021 5:12 AM CDT) WBC 9.6 4.0 - 10.8 x10'3/uL 10/03/2021 6:03 AM CDT [facility] RBC 2.97(L) 4.10 - 5.40 x10'6/uL 10/03/2021 6:03 AM CDT [facility] HGB 8.5(L) 12.0 - 16.0 G/DL 10/03/2021 6:03 AM CDT [facility] HCT 25.7(L) 36.0 - 47.0 % 10/03/2021 6:03 AM CDT [facility] MCV 86.5 78.0 - 100.0 FL 10/03/2021 6:03 AM CDT [facility] MCH 28.6 27.0 - 31.0 PG 10/03/2021 6:03 AM CDT [facility] MCHC 33.1 33.0 - 36.0 G/DL 10/03/2021 6:03 AM CDT [facility] RDW 15.4(H) 11.5 - 14.5 % 10/03/2021 6:03 AM CDT [facility] PLT 158 150 - 350 x10'3/uL 10/03/2021 6:03 AM CDT [facility] MPV 10.8(H) 7.4 - 10.4 FL 10/03/2021 6:03 AM CDT [facility] 10/03/2021 5:12 AM CDT Reji Lim MD LABORATORY Final Result Performing Organization Address City/State/[facility] Co de Phone Number [facility] [address] [place] [address], [phone] * ORDER PLATELET PHERESIS (10/03/2021 3:37 AM CDT) UNITS ORDERED 1 10/03/2021 3:44 AM CDT [facility] BLOOD UNIT NUMBER [id number] 10/03/2021 3:45 AM CDT [facility] PRODUCT: PLT PHERESIS LEUKORED 7D 10/03/2021 3:45 AM CDT [facility] UNIT DIVISION 00 10/03/2021 3:45 AM CDT [facility] BLOOD UNIT STATUS TRANSFUSED,FINAL 10/04/2021 12:40 AM CDT [facility] ISSUE DATE/TIME [id number] 022 12:40 AM CDT [facility] PRODUCT CODE [id number] 10/04/2021 12:40 AM CDT [facility] ABO/RH Unit O POS 10/04/2021 12:40 AM CDT [facility] ABO/RH UNIT ISBT CODE 5100 10/04/2021 12:40 AM CDT [facility] BLOOD UNIT EXPIRATION DATE [id number] 10/04/2021 12:40 AM CDT [facility] TRANSFUSION STATUS OK TO TRANSFUSE 10/03/2021 3:45 AM CDT [facility] 10/03/2021 3:37 AM CDT Miley Mohan MD BLOOD BANK PRODUCT ORDERABLE S Final Result Performing Organization Address [facility] Co de Phone Number [facility] [address] [place] [address], [phone] * PARTIAL THROMBOPLASTIN TIME,PTT (10/03/2021 2:08 AM CDT) PTT 32.9 25.1 - 36.5 SEC 10/03/2021 2:45 AM CDT [facility] 10/03/2021 2:08 AM CDT Melanie Sam MD LABORATORY Final Result Performing Organization Address [facility] de Phone Number [facility] [address] [place] [address], [place] [phone] * (ABNORMAL) PROTIME/INR, VENOUS (PROTHROMBIN TIME) (10/03/2021 2:08 AM CDT) PROTIME 14.9(H) 10.2 - 12.9 SEC 10/03/2021 2:42 AM CDT [facility] INR 1.3(H) 0.9 - 1.1 10/03/2021 2:42 AM CDT [facility] 10/03/2021 2:08 AM CDT Melanie Sam MD LABORATORY Final Result Performing Organization Address [facility] Co de Phone Number [facility] [address] [place] [address], [phone] * TYPE & SCREEN (10/03/2021 2:08 AM CDT) UNITS ORDERED 3 10/03/2021 5:29 AM CDT [facility] ABO/RH O POSITIVE 10/03/2021 3:08 AM CDT [facility] ANTIBODY SCREEN NEGATIVE 3:08 AM CDT [facility] SAMPLE EXPIRATION 10/06/2021,2359 10/03/2021 2:22 AM CDT [facility] BLOOD UNIT NUMBER [id number] 10/03/2021 5:34 AM CDT [facility] PRODUCT: PC LEUKOPOOR 10/03/2021 5:34 AM CDT [facility] UNIT DIVISION 00 10/03/2021 5:34 AM CDT [facility] BLOOD UNIT STATUS TRANSFUSED,FINAL 10/04/2021 12:40 AM CDT [facility] ISSUE DATE/TIME [id number] 022 12:40 AM CDT [facility] PRODUCT CODE [id number] 10/04/2021 12:40 AM CDT [facility] ABO/RH Unit O POS 10/04/2021 12:40 AM CDT [facility] ABO/RH UNIT ISBT CODE 5100 10/04/2021 12:40 AM CDT [facility] BLOOD UNIT EXPIRATION DATE [id number] 10/04/2021 12:40 AM CDT [facility] TRANSFUSION STATUS OK TO TRANSFUSE 10/03/2021 5:34 AM CDT [facility] CROSSMATCH COMPATIBLE-EXM 10/03/2021 5:34 AM CDT [facility] BLOOD UNIT NUMBER [id number] 10/03/2021 5:34 AM CDT [facility] PRODUCT: PC LEUKOPOOR 10/03/2021 5:34 AM CDT [facility] UNIT DIVISION 00 10/03/2021 5:34 AM CDT [facility] BLOOD UNIT STATUS TRANSFUSED,FINAL 10/04/2021 12:40 AM CDT [facility] ISSUE DATE/TIME [id number] 022 12:40 AM CDT [facility] PRODUCT CODE [id number] 10/04/2021 12:40 AM CDT [facility] ABO/RH Unit O POS 10/04/2021 12:40 AM CDT [facility] ABO/RH UNIT ISBT CODE 5100 10/04/2021 12:40 AM CDT [facility] BLOOD UNIT EXPIRATION DATE [id number] 10/04/2021 12:40 AM CDT [facility] TRANSFUSION STATUS OK TO TRANSFUSE 10/03/2021 5:34 AM CDT [facility] CROSSMATCH COMPATIBLE-EXM 10/03/2021 5:34 AM CDT [facility] BLOOD UNIT NUMBER [id number] 10/03/2021 5:34 AM CDT [facility] PRODUCT: PC LEUKO PHERE BAG2 10/03/2021 5:34 AM CDT [facility] UNIT DIVISION 00 10/03/2021 5:34 AM CDT [facility] BLOOD UNIT STATUS TRANSFUSED,FINAL 10/04/2021 12:40 AM CDT [facility] ISSUE DATE/TIME [id number] 022 12:40 AM CDT [facility] PRODUCT CODE [id number] 10/04/2021 12:40 AM CDT [facility] ABO/RH Unit O POS 10/04/2021 12:40 AM CDT [facility] ABO/RH UNIT ISBT CODE 5100 10/04/2021 12:40 AM CDT [facility] BLOOD UNIT EXPIRATION DATE [id number] 10/04/2021 12:40 AM CDT [facility] TRANSFUSION STATUS OK TO TRANSFUSE 10/03/2021 5:34 AM CDT [facility] CROSSMATCH COMPATIBLE-EXM 10/03/2021 5:34 AM CDT [facility] 10/03/2021 2:08 AM CDT us Melanie Sam MD BLOOD BANK TEST ORDERABLES Sirena l Result Performing Organization Address [facility] Co de Phone Number [facility] [address] [place] [address], [phone] * LIPASE (10/03/2021 2:08 AM CDT) LIPASE 95 73 - 393 UNITS/L 10/03/2021 3:06 AM CDT [facility] 10/03/2021 2:08 AM CDT us Melanie Sam MD LABORATORY Final Result Performing Organization Address [facility] Co de Phone Number [facility] [address] [place] [address], [place] [phone] * LACTIC ACID (10/03/2021 2:08 AM CDT) LACTIC ACID VENOUS 1.6 0.4 - 2.0 MMOL/L 10/03/2021 2:39 AM CDT [facility] 10/03/2021 2:08 AM CDT us Melanie Sam MD LABORATORY Final Result Performing Organization Address [facility] Co de Phone Number [facility] [address] [place] [address], [place] [phone] * (ABNORMAL) COMPREHENSIVE METABOLIC PANEL (10/03/2021 2:08 AM CDT) [facility] SODIUM S/P/B 139 136 - 145 MMOL/L 10/03/2021 3:06 AM CDT [facility] POTASSIUM S/P/B 4.3 3.5 - 5.1 MMOL/L 10/03/2021 3:06 AM CDT [facility] CHLORIDE S/P/B 111(H) 98 - 107 MMOL/L 10/03/2021 3:06 AM CDT [facility] CO2 22.0 21.0 - 32.0 MMOL/L 10/03/2021 3:06 AM CDT [facility] GLUCOSE 159(H) 74 - 106 MG/DL 10/03/2021 3:06 AM CDT [facility] BUN 23(H) 7 - 18 MG/DL 10/03/2021 3:06 AM CDT [facility] CREATININE S/P/B 0.85 0.55 - 1.02 MG/DL 10/03/2021 3:06 AM CDT [facility] CALCIUM S/P/B 8.2(L) 8.5 - 10.1 MG/DL 10/03/2021 3:06 AM CDT [facility] BILIRUBIN TOTAL S/P/B 0.8 0.2 - 1.0 MG/DL 10/03/2021 3:06 AM CDT [facility] ALKALINE PHOSPHATASE S/P/B 60 55 - 142 U/L 10/03/2021 3:06 AM CDT [facility] AST 13(L) 15 - 37 U/L 10/03/2021 3:06 AM CDT [facility] ALT 16 13 - 56 U/L 10/03/2021 3:06 AM CDT [facility] TOTAL PROTEIN S/P/B 5.7(L) 6.4 - 8.2 G/DL 10/03/2021 3:06 AM CDT [facility] ALBUMIN S/P/B 3.0(L) 3.4 - 5.0 G/DL 10/03/2021 3:06 AM CDT [facility] ANION GAP 6.0 5.0 - 15.0 MMOL/L 10/03/2021 3:06 AM CDT [facility] OSMOLALITY (CALC) 295 MOSM/KG 022 3:06 AM CDT [facility] Comment:REFERENCE RANGE NOT ESTABLISHED EGFR NON-AFR. AMER. 66(L) >90 ML/MIN/1. 73 M2 10/03/2021 3:06 AM CDT [facility] EGFR AFR. AMER. 77(L) >90 ML/MIN/1. 73 M2 10/03/2021 3:06 AM CDT [facility] GFR NOTES GFR REFERENCE S: 10/03/2021 3:06 AM CDT [facility] Comment: THE ESTIMATED GFR IS CALCULATED USING THE 2009 CKD-EPI EQUATION. THE FOLLOWING CATEGORIES FOR GRADING RENAL FUNCTION ARE RECOMMENDED BY THE INTERNATIONAL SOCIETY OF NEPHROLOGY (KDIGO 2012 CLINICAL PRACTICE GUIDELINE). G1,NORMAL OR HIGH: >89 ml/min/1.73 m2 G2,MILDLY DECREASED: 60-89 ml/min/1.73 m2 G3A,MILDLY TO MODERATELY DECREASED: 45-59 ml/min/1.73 m2 G3B,MODERATELY TO SEVERELY DECREASED: 30-44 ml/min/1.73 m2 G4,SEVERELY DECREASED: 15-29 ml/min/1.73 m2 G5,KIDNEY FAILURE: <15 ml/min/1.73 m2 10/03/2021 2:08 AM CDT Melanie Sam MD LABORATORY Final Result [facility] [address] [place] [address], [phone] * (ABNORMAL) CBC W/DIFF AUTOMATED (10/03/2021 2:08 AM CDT) [facility] WBC 6.2 4.0 - 10.8 x10'3/uL 10/03/2021 2:28 AM CDT [facility] RBC 2.72(L) 4.10 - 5.40 x10'6/uL 10/03/2021 2:28 AM CDT [facility] HGB 7.7(L) 12.0 - 16.0 G/DL 10/03/2021 2:28 AM CDT [facility] HCT 23.6(L) 36.0 - 47.0 % 10/03/2021 2:28 AM CDT [facility] MCV 86.8 78.0 - 100.0 FL 10/03/2021 2:28 AM CDT [facility] MCH 28.3 27.0 - 31.0 PG 10/03/2021 2:28 AM CDT [facility] MCHC 32.6(L) 33.0 - 36.0 G/DL 10/03/2021 2:28 AM CDT [facility] RDW 15.7(H) 11.5 - 14.5 % 10/03/2021 2:28 AM CDT [facility] PLT 92(L) 150 - 350 x10'3/uL 10/03/2021 2:42 AM CDT [facility] MPV 10.8(H) 7.4 - 10.4 FL 10/03/2021 2:42 AM CDT [facility] ABS. NEUTROPHILS 3.58 1.60 - 8.30 x10'3/uL 10/03/2021 2:28 AM CDT [facility] ABS. LYMPHOCYTES 0.83 0.80 - 4.70 x10'3/uL 10/03/2021 2:28 AM CDT [facility] ABS. MONOCYTES 1.67(H) 0.00 - 1.50 x10'3/uL 10/03/2021 2:28 AM CDT [facility] ABS. EOSINOPHILS 0.01 0.00 - 0.40 x10'3/uL 10/03/2021 2:28 AM CDT [facility] ABS. BASOPHILS 0.01 0.00 - 0.20 x10'3/uL 10/03/2021 2:28 AM CDT [facility] ABS. IMMATURE GRANULOCYTES 0.09(H) 0.00 - 0.03 x10'3/uL 10/03/2021 2:28 AM CDT [facility] ABS. NUCLEATED RBC'S 0.00 0.0 x10'3/uL 10/03/2021 2:28 AM CDT [facility] 10/03/2021 2:08 AM CDT Melanie Sam MD LABORATORY Final Result [facility] [address] [place] [address], [phone] * BIOFIRE PCR UPPER RESPIRATORY PROFILE (RESPIRATORY PCR PANEL 2) (10/03/2021 1:44 AM CDT) ADENOVIRUS PCR (RESP) NOT DETECTED NOT DETECTED 10/03/2021 3:46 AM CDT [facility] CORONAVIRUS 229E PCR (RESP) NOT DETECTED NOT DETECTED 10/03/2021 3:46 AM CDT [facility] CORONAVIRUS HKU1 PCR (RESP) NOT DETECTED NOT DETECTED 10/03/2021 3:46 AM CDT [facility] CORONAVIRUS NL63 PCR (RESP) NOT DETECTED NOT DETECTED 10/03/2021 3:46 AM CDT [facility] CORONAVIRUS OC43 PCR (RESP) NOT DETECTED NOT DETECTED 10/03/2021 3:46 AM CDT [facility] METAPNEUMOVIRUS PCR (RESP) NOT DETECTED NOT DETECTED 10/03/2021 3:46 AM CDT [facility] RHINOVIRUS/ENTEROV IRUS PCR (RESP) NOT DETECTED NOT DETECTED 10/03/2021 3:46 AM CDT [facility] INFLUENZA A PCR (RESP) NOT DETECTED NOT DETECTED 10/03/2021 3:46 AM CDT [facility] INFLUENZA B PCR (RESP) NOT DETECTED NOT DETECTED 10/03/2021 3:46 AM CDT [facility] PARAINFLUENZA 1 PCR (RESP) NOT DETECTED NOT DETECTED 10/03/2021 3:46 AM CDT [facility] PARAINFLUENZA 2 PCR (RESP) NOT DETECTED NOT DETECTED 10/03/2021 3:46 AM CDT [facility] PARAINFLUENZA 3 PCR (RESP) NOT DETECTED NOT DETECTED 10/03/2021 3:46 AM CDT [facility] PARAINFLUENZA 4 PCR (RESP) NOT DETECTED NOT DETECTED 10/03/2021 3:46 AM CDT [facility] RSV PCR (RESP) NOT DETECTED NOT DETECTED 10/03/2021 3:46 AM CDT [facility] B PARAPERTUSIS PCR (RESP) NOT DETECTED NOT DETECTED 10/03/2021 3:46 AM CDT [facility] BORDETELLA PERTUSSIS PCR (RESP) NOT DETECTED NOT DETECTED 10/03/2021 3:46 AM CDT [facility] CHLAMYDOPHILA PNEUMONIAE PCR (RESP) NOT DETECTED NOT DETECTED 10/03/2021 3:46 AM CDT [facility] MYCOPLASMA PNEUMONIAE PCR (RESP) NOT DETECTED NOT DETECTED 10/03/2021 3:46 AM CDT [facility] CORONAVIRUS SARS COV 2 PCR (RESP) NOT DETECTED NOT DETECTED 10/03/2021 3:46 AM CDT [facility] FIRST TEST YES 10/03/2021 1:43 AM CDT [facility] EMPLOYED IN HEALTHCARE NO 10/03/2021 1:43 AM CDT [facility] SYMPTOMATIC DEFINED BY CDC NO 10/03/2021 1:43 AM CDT [facility] HOSPITALIZATION STATUS NO 10/03/2021 1:43 AM CDT [facility] PATIENT IN ICU UNKNOWN 10/03/2021 1:56 AM CDT [facility] RESIDENT OF [facility] NO 10/03/2021 1:43 AM CDT [facility] NASOPHARYNGEAL SWAB / Unknown 10/03/2021 1:44 AM CDT us Miley Mohan MD MICROBIOLOGY - GENERAL ORDER [place] Final Result Performing Organization Address [facility]/State/ZIP Co de Phone Number [facility] [address] [place] [address], [id number] * Pathology (10/03/2021 12:00 AM CDT) PATHOLOGY [facility] ? Department of Laboratory Medicine ?[address] ?[place] [address] ? , extension [phone] ? Pathology Report ? Surgical Pathology Report Name: MARTINEZ, ZEE G ? Specimen #: [id number] Age: 1 1945 (Age: 76) ?Location: [id number] Sex: F ?Procedure Date: 10/03/2021 Hospital #: [id number] ?Date Received: 10/03/2021 Date Reported: 10/04/2021 Provider: LUIS PINA MD ?KANU WILCOX MD ?NILS ASTUDILLO MD ?MICHA VALDES MD Source: Spleen Clinical History: Spleen trauma Gross Description: Received is a specimen labeled spleen which is multiple fragments of splenic tissue and clot which aggregates approximately 20 x 15 x 6 cm. ??The overall specimen weighs 850 grams. ??Most of the tissue is clot though intermixed splenic tissue is present. ??The splenic tissue weighs approximately 40 grams. Ticket Dispatcher splenic tissue is placed into cassettes 1 and 2 and a random section of clot material is placed into cassettes 3. Gross examination (when applicable), was performed at [facility], [address], [place], [address]. This case was interpreted and signed out at [facility], [address] [place], [place], [address]. FINAL DIAGNOSIS: SPLEEN, SPLENECTOMY: ? - FRAGMENTS OF BENIGN APPEARING SPLENIC TISSUE AND ORGANIZING BLOOD CLOT. Electronically Signed Out ? Maira Gordon M.D. [facility] Tissue specimen (specimen) SPLENIC STRUCTURE / Unknown 10/03/2021 7:48 AM CDT us Luis Pina MD PATHOLOGY/CYTOLOGY ORDERABLE S Final Result [facility] [address] [place] [address], [id number] * ECG 12 lead (10/03/2021 12:00 AM CDT) 10/03/2021 Narrative [facility] - 10/03/2021 5:57 PM CDT ?[facility]-ED ? Test Date: ?2021-10-03 Pat Name: ? ZEE MARTINEZ ? Department: ?? 70 ? Room: ? ICUA11 Gender: ? Female ? Compatibility Test Engineer: ?? B SYEDA : ?1945 ? Requested By: DIANA CLOUD Order Number: [id number] ? Reading : ?? Sussy Rodriguez ? Measurements Intervals ?[place] ? Rate: ? 81 ? P: ?66 [place]: ? 136 ?QRS: ?19 QRSD: ? 73 ? T: ?46 QT: ? 385 ? QTc: ?449 ? Interpretive Statements SINUS RHYTHM Compared to ECG 10/03/2021 01:37:43 No significant changes Procedure Note Sussy Rodriguez MD - 10/03/2021 [facility] Test Date: 2021-10-03 Pat Name: ZEE MARTINEZ Department: 70 Room: ICUA11 Gender: Female Compatibility Test Engineer: Tamika LANDA : 1945 Requested By: DIANA CLOUD Order Number: [id number] Ashley MD: Sussy Rodriguez Measurements Intervals [place] Rate: 81 P: 66 [place]: 136 QRS: 19 QRSD: 73 T: 46 QT: 385 QTc: 449 Interpretive Statements SINUS RHYTHM Compared to ECG 10/03/2021 01:37:43 No significant changes us Diana Cloud APSUZY ECG ORDERABLES Edited Result - Final [facility] * ECG 12 lead (10/03/2021 12:00 AM CDT) 10/03/2021 Narrative [facility] - 10/03/2021 5:56 PM CDT ?[facility]-ED ? Test Date: ?2021-10-03 Pat Name: ? ZEE MARTINEZ ? Department: ?? 70 ? Room: ? ICUA11 Gender: ? Female ? Compatibility Test Engineer: ?? Tamika SCHWAB: ?1945 ? Requested By: MILEY MOHAN Order Number: [id number] ? Reading : ?? Sussy Rodriguez ? Measurements Intervals ?[place] ? Rate: ? 82 ? P: ?73 [place]: ? 147 ?QRS: ?25 QRSD: ? 74 ? T: ?49 QT: ? 385 ? QTc: ?450 ? Interpretive Statements SINUS RHYTHM Compared to ECG 10/02/2021 19:31:34 Sinus arrhythmia no longer present Procedure Note Sussy Rodriguez MD - 10/03/2021 [facility] Test Date: 2021-10-03 Pat Name: ZEE MARTINEZ Department: 70 Room: ICUA11 Gender: Female Compatibility Test Engineer: Tamika LANDA : 1945 Requested By: MILEY MOHAN Order Number: [id number] Ashley MD: Sussy Rodriguez Measurements Intervals [place] Rate: 82 P: 73 [place]: 147 QRS: 25 QRSD: 74 T: 49 QT: 385 QTc: 450 Interpretive Statements SINUS RHYTHM Compared to ECG 10/02/2021 19:31:34 Sinus arrhythmia no longer present us Miley Mohan MD ECG ORDERABLES Edited Resul t - Final [facility] documented in this encounter Visit Diagnoses Not on filedocumented in this encounter Admitting Diagnoses Diagnosis Spontaneous rupture of spleen Other diseases of spleen documented in this encounter Administered Medications Inactive Administered Medications - up to 3 most recent administrations Medication Order MAR Action Action Date Dose Rate Site acetaminophen (TYLENOL) tablet 650 mg 650 mg, Tube, Every 4 hours PRN, Mild pain (Scale 1 - 3), Starting on 10/03/21 at 1219, Until Sun10/10/21 at 1325, Maximum dose of acetaminophen is 4000 mg from all sources in 24 hours. Given 10/04/2021 4:01 PM CDT 650 mg acetaminophen-codeine (TYLENOL #3) 300-30 MG tablet 2 tablet 2 tablet, Oral, Every 6 hours PRN, Moderate pain (Scale 4 - 7), Starting on 10/08/21 at 0944, Until Sun10/10/21 at 1325, Maximum dose of acetaminophen is 4000 mg from all sources in 24 hours. Given 10/09/2021 8:41 PM CDT 2 tablets Given 10/09/2021 9:45 AM CDT 2 tablets Given 10/09/2021 1:49 AM CDT 2 tablets apixaban (ELIQUIS) tablet 5 mg 5 mg, Oral, 2 times daily, First dose on 10/09/21 at 0900, Until Discontinued Given 10/10/2021 8:19 AM CDT 5 mg Given 10/09/2021 8:41 PM CDT 5 mg Given 10/09/2021 9:40 AM CDT 5 mg aspirin EC (ECOTRIN) tablet 81 mg 81 mg, Oral, Daily, First dose on 10/08/21 at 1515, Until Discontinued, Do not break, chew, or crush. Given 10/10/2021 8:19 AM CDT 81 mg Given 10/09/2021 9:40 AM CDT 81 mg Given 10/08/2021 4:59 PM CDT 81 mg benzocaine 20 % (HURRICAINE) mouth solution 1 spray 1 spray, Mouth/Throat, Every 6 hours PRN, Pain, Starting on Sun10/03/21 at 2100, Until Sun10/10/21 at 1325, Do NOT recommend use for teething & mouth pain in infants & children under 2 years. Given 10/05/2021 3:29 AM CDT 1 spray Given 10/04/2021 8:32 PM CDT 1 spray Given 10/03/2021 10:57 PM CDT 1 spray BUpivacaine-EPINEPHrine (PF) 0.25% -[id number] injection As needed, Starting on Sun10/03/21 at 0752, Until Sun10/03/21 at 0838, Intra-Op Given 10/03/2021 7:52 AM CDT 30 mLs carvedilol (COREG) tablet 12.5 mg 12.5 mg, Tube, 2 times daily, First dose (after last modification) on Sun10/06/21 at 2100, Until Discontinued, Take with meal or snack Hold if HR <60 or SBP < 100 Given 10/10/2021 8:19 AM CDT 12.5 mg Given 10/09/2021 8:41 PM CDT 12.5 mg Given 10/09/2021 9:40 AM CDT 12.5 mg hydrALAZINE (APRESOLINE) injection 10 mg 10 mg, Intravenous, Every 6 hours PRN, Other, SBP > 160 mmHg, Starting on Sun10/06/21 at 0857, Until Sun10/10/21 at 1325, Monitor HR and BP before dose and 15 min after IV dose. For IV push give over 1-2 minutes=5mg/min. Given 10/08/2021 9:01 AM CDT 1 0 mg Given 10/07/2021 2:43 PM CDT 10 mg Given 10/07/2021 3:17 AM CDT 10 mg hydroCHLOROthiazide (HYDRODIURIL) tablet 25 mg 25 mg, Tube, Daily, First dose (after last modification) on Sun10/04/21 at 0900, Until Discontinued Given 10/10/2021 8:19 AM CDT 25 mg Given 10/09/2021 9:40 AM CDT 25 mg Given 10/08/2021 8:43 AM CDT 25 mg losartan (COZAAR) tablet 100 mg 100 mg, Tube, Daily, First dose on Sun10/04/21 at 1200, Until Discontinued, Therapeutic interchange for olmesartan 40 mg daily. Given 10/10/2021 8:18 AM CDT 100 mg Given 10/09/2021 9:40 AM CDT 100 mg Given 10/08/2021 8:43 AM CDT 100 mg normal saline 0.9 % flush 3-10 mL 3-10 mL, Intravenous, As needed, Line care, Starting on Sun10/03/21 at 0406, Until Sun10/10/21 at 1325 ondansetron (ZOFRAN) injection 4 mg 4 mg, Intravenous, Every 8 hours PRN, Nausea, Vomiting, Starting on Sun10/03/21 at 0411, Until Sun10/10/21 at 1325, IV push over 2-5 minutes. Given 10/08/2021 10:06 PM CDT 4 mg Given 10/08/2021 7:49 AM CDT 4 mg Given 10/07/2021 10:28 PM CDT 4 mg orphenadrine ER (NORFLEX) 12 hr tablet 100 mg 100 mg, Oral, 2 times daily, First dose on Sun10/07/21 at 0915, Until Discontinued, Do not break or crush tablet Do not break, chew, or crush. Given 10/10/2021 8:19 AM CDT 100 mg Given 10/09/2021 8:41 PM CDT 100 mg Given 10/09/2021 9:40 AM CDT 100 mg pantoprazole (PROTONIX) 40 mg in sodium chloride (PF) 0.9 % 10 mL IV 40 mg, Intravenous, Daily, First dose on Sun10/07/21 at 0900, Until Discontinued, Reconstitute each 40 mg vial with 10 mL normal saline to a final concentration of 4 mg/mL. Administer intravenously over a period of a least 2 minutes. Given 10/10/2021 8:20 AM CDT 40 mg Given 10/09/2021 9:40 AM CDT 40 mg Given 10/08/2021 8:43 AM CDT 40 mg documented in this encounter Active and Recently Administered Medications Times are shown in CDT. Scheduled Medication Order 10/08/2021 10/09/2021 10/10/2021 apixaban (ELIQUIS) tablet 5 mg 5 mg, Oral, 2 times daily, First dose on Sun10/09/21 at 0900, Until Discontinued 09 (Given - Provider: Zehra Salomon RN)2040 (Given - Provider: Nicole Dee RN) 818 (Given - Provider: Ashanti Duran, RN) aspirin EC (ECOTRIN) tablet 81 mg 81 mg, Oral, Daily, First dose on Sun10/08/21 at 1515, Until Discontinued, Do not break, chew, or crush. 1659 (Given - Provider: Zehra Salomon RN) 0940 (Given - Provider: Zehra Salomon RN) 08 (Given - Provider: Ashanti Duran, TUNDE) carvedilol (COREG) tablet 12.5 mg 12.5 mg, Tube, 2 times daily, First dose (after last modification) on Sun10/06/21 at 2100, Until Discontinued, Take with meal or snack Hold if HR <60 or SBP < 100 0843 (Given - Provider: Zehra Salomon RN)2206 (Given - Provider: Maria T Norwood RN) 939 (Given - Provider: Zehra Salomon RN)2040 (Given - Provider: Nicole Dee RN) 818 (Given - Provider: Ashanti Duran, TUNDE) enoxaparin (LOVENOX) 40 MG/0.4ML syringe 40 mg (CANCELED) 40 mg, Subcutaneous, Nightly (enoxaparin), First dose on Sun10/06/21 at 2100, Until Discontinued, Administer by deep SubQ injection alternating between the left or right anterolateral and left or right posterolateral abdominal wall. 2205 (Given - Provider: Maria T Norwood, TUNDE) hydroCHLOROthiazide (HYDRODIURIL) tablet 25 mg 25 mg, Tube, Daily, First dose (after last modification) on Sun10/04/21 at 0900, Until Discontinued 0843 (Given - Provider: Zehra Salomon RN) 0940 (Given - Provider: Zehra Salomon RN) 0819 (Given - Provider: Ashanti Duran, TUNDE) losartan (COZAAR) tablet 100 mg 100 mg, Tube, Daily, First dose on Sun10/04/21 at 1200, Until Discontinued, Therapeutic interchange for olmesartan 40 mg daily. 0843 (Given - Provider: Zehra Salomon RN) 0940 (Given - Provider: Zehra Salomon RN) 0818 (Given - Provider: Ashanti Duran, RN) orphenadrine ER (NORFLEX) 12 hr tablet 100 mg 100 mg, Oral, 2 times daily, First dose on Sun10/07/21 at 0915, Until Discontinued, Do not break or crush tablet Do not break, chew, or crush. 0843 (Given - Provider: Zehra Salomon RN)2207 (Given - Provider: Maria T Norwood RN) 0940 (Given - Provider: Zehra Salomon RN)2040 (Given - Provider: Nicole Dee, RN) 0819 (Given - Provider: Ashanti Duran, TUNDE) pantoprazole (PROTONIX) 40 mg in sodium chloride (PF) 0.9 % 10 mL IV 40 mg, Intravenous, Daily, First dose on Sun10/07/21 at 0900, Until Discontinued, Reconstitute each 40 mg vial with 10 mL normal saline to a final concentration of 4 mg/mL. Administer intravenously over a period of a least 2 minutes. 0843 (Given - Provider: Zehra Salomon RN) 0940 (Given - Provider: Zehra Salomon RN) 0820 (Given - Provider: Ashanti Duran, TUNDE) PRN Medication Order 10/08/2021 10/09/2021 10/10/2021 acetaminophen (TYLENOL) tablet 650 mg(Linked Group 1) 650 mg, Tube, Every 4 hours PRN, Mild pain (Scale 1 - 3), Starting on 10/03/21 at 1219, Until Sun10/10/21 at 1325, Maximum dose of acetaminophen is 4000 mg from all sources in 24 hours. acetaminophen-codeine (TYLENOL #3) 300-30 MG tablet 2 tablet 2 tablet, Oral, Every 6 hours PRN, Moderate pain (Scale 4 - 7), Starting on 10/08/21 at 0944, Until 10/10/21 at 1325, Maximum dose of acetaminophen is 4000 mg from all sources in 24 hours. 1800 (Given - Provider: Zehra Salomon RN) 0149 (Given - Provider: Maria T Norwood, TUNDE)0945 (Given - Provider: Zehra Salomon RN)2040 (Given - Provider: Nicole Dee RN) benzocaine 20 % (HURRICAINE) mouth solution 1 spray 1 spray, Mouth/Throat, Every 6 hours PRN, Pain, Starting on Sun10/03/21 at 2100, Until Sun10/10/21 at 1325, Do NOT recommend use for teething & mouth pain in infants & children under 2 years. hydrALAZINE (APRESOLINE) injection 10 mg 10 mg, Intravenous, Every 6 hours PRN, Other, SBP > 160 mmHg, Starting on Nadine 10/06/21 at 0857, Until Sun10/10/21 at 1325, Monitor HR and BP before dose and 15 min after IV dose. For IV push give over 1-2 minutes=5mg/min. 0901 (Given - Provider: Zehra Salomon RN) HYDROcodone-acetaminophen (NORCO) 5-325 MG tablet 1 tablet (CANCELED) 1 tablet, Tube, Every 4 hours PRN, Moderate pain (Scale 4 - 7), Starting on 10/03/21 at 1219, Until [facility] [place] 10/08/21 at 0944, Maximum dose of acetaminophen is 4000 mg from all sources in 24 hours. 0843 (Given - Provider: Zehra Salomon RN) normal saline 0.9 % flush 3-10 mL 3-10 mL, Intravenous, As needed, Line care, Starting on Sun10/03/21 at 0406, Until Sun10/10/21 at 1325 ondansetron (ZOFRAN) injection 4 mg 4 mg, Intravenous, Every 8 hours PRN, Nausea, Vomiting, Starting on Sun10/03/21 at 0411, Until Sun10/10/21 at 1325, IV push over 2-5 minutes. 0749 (Given - Provider: Maria T Norwood, TUNDE)2206 (Given - Provider: Maria T Norwood, TUNDE) Linked Groups Order Group 1: acetaminophen (TYLENOL) tablet 650 mgJump to med 650 mg, Tube, Every 4 hours PRN, Mild pain (Scale 1 - 3), Starting on Sun10/03/21 at 1219, Until Sun10/10/21 at 1325, Maximum dose of acetaminophen is 4000 mg from all sources in 24 hours. Or acetaminophen (TYLENOL) suppository 650 mg (CANCELED) 650 mg, Rectal, Every 4 hours PRN, Mild pain (Scale 1 - 3), Starting on 10/03/21 at 1219, Until 10/07/21 at 0848, Give if unable to take PO. Maximum dose of acetaminophen is 4000 mg from all sources in 24 hours. Or acetaminophen (TYLENOL) 160 MG/5ML solution 650 mg (CANCELED) 650 mg, Tube, Every 4 hours PRN, Mild pain (Scale 1 - 3), Starting on 10/03/21 at 1219, Until 10/07/21 at 0848, Give if unable to swallow tablets/capsules or if patient prefers liquid. Maximum dose of acetaminophen is 4000 mg from all sources in 24 hours. documented in this encounter Additional Health Concerns Infection Onset Date Last Indicated Resolved Time COVID-19 Rule Out 10/03/2021 10/03/2021 10/03/2021 3:46 AM CDT documented as of this encounter Care Teams Band Builder Relationship Specialty Start Date End Date Last Bain MD [address] [place] [address] PCP - General FAMILY PRACTICE 05/09/21 Nahid Hickman MD [facility] [address] [place] [id number] PCP - ONCOLOGY HEMATOLOGY/ONCOLOGY 10/03/21 Kiel Vasquez MD [address] [facility] [address] [place] [id number] Consulting Physician CARDIOLOGY 10/03/21 documented as of this encounter
--- OUTSIDE RECORDS SUMMARY | 2024-07-01 00:26 | XMS_ITS | Encounter Summary ---
Author Organization [facility] Address [facility]. [place], [place] [id number] [place] [address] Care Team Providers Care Business Operations Specialist Name Role Phone Last Bain MD Primary Care Provider Nahid Hickman MD Unavailable [phone] Kiel Vasquez MD Unavailable [phone] Reason for Referral * (Routine) - Canceled Specialty Diagnoses / Procedures Referred By Contac t Referred To Contact Procedures OT Eval and Treat [facility] Unit - [address] [place] [address] Phone: tel: Referral ID Status Reason Start Date Expiration Date V isits Requested Visits Authorized [id number] Canceled 10/06/2021 11/05/2022 1 1 * (Routine) - Canceled Specialty Diagnoses / Procedures Referred By Contac t Referred To Contact Procedures PT Eval and Treat [facility] Unit - [address] [place] [address] Phone: tel: Referral ID Status Reason Start Date Expiration Date V isits Requested Visits Authorized [id number] Canceled 10/06/2021 11/05/2022 1 1 Reason for Visit * Reason Comments Syncope Abdominal Injury * Auth/Cert Specialty Diagnoses / Procedures Referred By Contac t Referred To Contact Diagnoses Spontaneous rupture of spleen Splenic laceration SPLENIC LACERATION Spontaneous rupture of spleen Procedures GENERAL Referral ID Status Reason Start Date Expiration Date Visits Re quested Visits Authorized [id number] 1 1 Encounter Details Date Type Department Care Team (Latest Contact Info) Description 10/03/2021 1:29 AM CDT - 10/10/2021 11:25 AM CDT Hospital Encounter [facility] [address] [place] [address] Miley Mohan MD [address] [place] [address] Jorge Guzman MD [address] [address] Luis Pina MD [address] [address] Miguel Armas MD [address] [address] Syncope; Abdominal Injury Discharge Disposition: Home or Self Care (Routine [...] Sign Reading Time Taken Comments Blood Pressure 158/54 10/10/2021 7:30 AM CDT Pulse 70 10/10/2021 7:30 AM CDT Temperature 36.9 ??C (98.4 ??F) 10/10/2021 7:30 AM CD T Respiratory Rate 18 10/09/2021 8:20 PM CDT Oxygen Saturation 97% 10/10/2021 7:30 AM CDT Inhaled Oxygen Concentration - - Weight 76.1 kg (167 lb 12.3 oz) 10/08/2021 7:49 AM CDT Height 160 cm (5' 3 ) 10/03/2021 1:34 AM CDT Body Mass Index 29.72 10/03/2021 1:34 AM CDT documented in this encounter Functional Status * Question Answer Date of Assessment Author Status Do you have serious difficulty walking or climbing stairs? No 10/03/2021 4:00 PM Rupa Borrero RN Activ e * Question Answer Date of Assessment Author Status Do you have difficulty dressing or bathing? No 10/03/2021 4:00 PM Rupa Borrero RN A ctive Because of a physical, mental, or emotional condition, do you have difficulty doing errands alone such as visiting a doctor's office or shopping? No 10/03/2021 4:00 PM Ching Borrero ea, RN Active * RETIRED Are you deaf or do you have serious difficulty hearing Answer Date of Assessment Author Status No 10/03/2021 4:00 PM CDT Activ e * RETIRED Are you blind or do you have serious difficulty seeing, even when wearing glasses? Answer Date of Assessment Author Status No 10/03/2021 4:00 PM CDJavon Activ e * Do you have serious [...] as of this encounter Mental Status * Question Answer Entry Date Author Status Because of a physical, mental, or emotional condition, do you have serious difficulty concentrating, remembering, or making decisions? No 10/03/2021 4:00 PM Rupa Borrero RN A ctive * Because of a physical, mental, or [...] EXPLORATORY, SPLEENECTOMY, RIGHT RADIAL ARTERIAL LINE PLACEMENT: 55882 (CPT??) Hospital Course: Zee Martinez is a [...] Follow up: Call Dr. Pina's office at [phone] to schedule follow up in 1-2 weeks. [...] through Care Everywhere. * Splenectomy Discharge Instructions (Beninese) * How to Prevent Blood Clots (Beninese) * How to Prevent Surgical Site Infections (Beninese) documented in this encounter Medications at Time [...] Dubose PTA - 10/10/2021 9:53 AM CDT Cutter Operator attempted to see pt for PT at approx 9:53am but pt states that she is leaving; RN also stated that she already has D/C papers for pt. Cutter Operator asked if pt would like to practice stairs before D/C. Pt states that she does not have to do stairs at all at home since she has an elevator. Pt was verbally educated to perform steps non reciprocally for safety and energy conservation. Cutter Operator also explained to avoid pulling/pushing on handrail to adhere to abdominal precautions. Pt was verbally educated on abdominal precautions. Pt asked if she needed a walker; race and sports book writer explained that previous therapy notes recommend [...] Plan to discharge home today. Please HALO ignition specialist resident with any questions. Staff: Dr. Pina [...] Pina MD - 11/09/2021 10:50 PM CDT [facility] General Surgery Attending Attestation-- POD#7 s/p [...] with her in clinic. Luis Pina MD [facility] General Surgery Pgr: [phone] LUIS PINA MD * Kanu Wilcox MD [...] be given prior to discharge. Please HALO ignition specialist resident with any questions. Staff: Dr. Pina [...] Pina MD - 11/14/2021 10:07 PM CDT [facility] General Surgery Attending Attestation--POD#6 s/p splenectomy [...] ordered prior to d/c. Luis Pina MD [facility] General Surgery Pgr: [phone] * Kitty Keane, PARLIAMENTARY ARCHIVIST - 10/08/2021 12:30 PM CDT PT Treatment Discharge Recommendation: home with assistance P/T home health Activity Recommendation for battery charger conveyor line: Up with assist x1 with walker and gait belt; abdominal precautions with binder on at all times 10/08/21 1210 Therapy Visit Ordering Provider SUZY Carlos Subjective RN okayed session. Upon arrival, pt was seated upright in bed and agreed to PT. [facility] Reason for admission Pt is a 76 year old female who presented to an [facility] on 10/02 with syncopal episode and abdominal pain; ABD CT revealed complex splenic laceration with large amount of intraperitoneal blood. Transferred 2 units PRBCs and transferred to [facility] for further management. On 10/03: s/p emergent [...] be given prior to discharge. Please HALO ignition specialist resident with any questions. Staff: Dr. Pina [...] 10.1 MG/DL Final Recent Labs Lab 10/02/21 18110/02/21181410/03/21 0208 10/03/21 0512 10/03/21 0720 10/03/21 1106 [...] Pina MD - 11/14/2021 10:04 PM CDT [facility] General Surgery Attending Attestation--POD#5 s/p splenectomy [...] Advance diet as tolertated. Luis Pina MD [facility] General Surgery Pgr: [phone] * Baldev Norwood RN - 10/08/2021 4:01 AM CDT [...] Self (Pt lives with her son in [place], [place]. Pt does drive.) Support System Friends;Immediate family (Son.) Baseline ADL's Functional Status Independent Type of Residence Private residence (Apartment - 2 story.) Ambulation Assistance No Bathing/Grooming Assistance No Dressing Assistance No Behavior Oriented Communication Talks;Understands speaking;Understands Beninese Anticipated DC Plan Patient expects to be [...] recommendation: 2 wheeled walker Activity Recommendation for battery charger conveyor line: up with assist of one and gait [...] year old female who presented to an [facility] on 10/02 with syncopal episode and abdominal pain; ABD CT revealed complex splenic laceration with large amount of intraperitoneal blood. Transferred 2 units PRBCs and transferred to [facility] for further management. On 10/03: s/p emergent [...] supine to/from sitting at EOB with Modified [place] to improvemobility. ??? Pt. will be able to perform sit to/from standing with Modified [place] using wheeled walker to improve independence. ??? Pt. will be able to ambulate 400 feet with Modified [place] using wheeled walker to help improve strength and functional independence. ??? Pt. will be able to maintain static sitting balance for 5-10 minutes with Independent to improve independence. ??? Pt. will be able to maintain dynamic sitting balance on soft surface with Independent to improve functional mobility. ??? Pt. will be able to maintain static standing balance 5-10 minutes with Modified [place] using wheeled walker to improve independence. ??? Pt. will be able to maintain dynamic standing balance during side-stepping L/R and marching with Modified [place] using wheeled walker to improve functional mobility. 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 Pt now demonstrates with weakness, decreased endurance, [...] year old female who presented to an [facility] on 10/02 with syncopal episode and abdominal pain; ABD CT revealed complex splenic laceration with large amount of intraperitoneal blood. Transferred 2 units PRBCs and transferred to [facility] for further management. On 10/03: s/p emergent [...] ??? Pt will complete dressing with Modified [place] sitting EOB or in chair to increase safetyand independence with ADLs. ??? Pt will complete all grooming and self-feeding with Independent to increased safety and independence with ADLs. ??? Pt will complete ADLs at sink with Modified [place] to increase independence with ADLs. ??? Pt will complete toileting hygiene and clothing management with Modified [place] to increase safety and independence with ADLs. ??? Pt to complete bathing with Modified [place] seated in chair/EOB to increase independence with ADLs. ??? Pt will complete bed mobility performing log roll technique with Independent with HOB flat to increase safety and independence with functional transfers. ??? Pt will complete transfers all surfaces to/from all surfaces with Modified [place] using wheeled walker to increase functional mobility and transfers. ??? Pt will participate within skilled therapy services for 20-30 minutes with 2-3 rest breaks to increase independence with ADLs and functional transfers. ??? Pt will increase dynamic standing balance standing at sink/dressing completing ADLs with Modified [place] with wheeled walker for 20-30 minutes to increase safety and independence with ADLs and functional transfers. ??? Pt will follow Abdominal precautions with no verbal cuing to increase safety awareness and independence with ADLs and functional transfers. * Yocasta Lubin PharmD - 10/07/2021 8:14 AM CDT Pharmacy Clinical Services: Sign off note Pharmacy has been consulted to dose vancomycin. Pharmacy will now sign off dosing as the drug has been discontinued. Thank you for allowing us the opportunity to participate in the care of Zee Martinez. Please let pharmacy know if we can be of further assistance. Trung VEGAD Phone number: [phone] 10/07/2021 8:50 AM * Ayden Moore MD [...] DVT prophylaxis: SCD. SQ Lovenox Please HALO ignition specialist resident with any questions. Staff: Dr. Pina [...] TUNDE DE PAZ at: 06:04:25 10/07/2021 by AMKaren. CHLORIDE S/P/B Date Value Ref Range Status [...] Pina MD - 11/06/2021 9:46 PM CDT [facility] General Surgery Attending Attestation--POD#4 s/p splenectomy [...] Continue CLD for now. Luis Pina MD [facility] General Surgery Pgr: [phone] * Baldev Norwood RN - 10/07/2021 3:33 AM CDT [...] transfer to the floor. Jorge Guzman MD, [facility] Trauma and Acute Care Surgery * Manny Mendoza, TrungD - 10/06/2021 11:03 AM CDT Vancomycin Pharmacokinetic [...] Consult per Dr. Aurelio MENDOZA, PharmD Phone: [phone] 10/06/2021 11:03 AM * Madie Jaime MD [...] DVT prophylaxis: SCD. SQ Lovenox Please HALO ignition specialist resident with any questions. Staff: Dr. Pina [...] Pina MD - 11/06/2021 9:41 PM CDT [facility] General Surgery Attending Attestation--POD#3 s/p splenectomy I saw and examined Zee Martinez in her room (708) at noon today (10/06) with Mr. Barahona (MSIII), havereviewed Dr. Gill's progress note above and concur with her findings, impression and recommendations as documented. Please see above/below for additional details. Briefly, Zee Martinez is now POD#3 s/p splenectomy for colonoscopic trauma. Stable overnight. Downgraded from ICU to 7th floor yesterday. Wound is C/D/I w/o erythema nor drainage. H/H stable (hct 28.7). No e/o bleeding. Appreciate ICU service management. AROBF before d/c NGT.. Luis Pina MD [facility] General Surgery Pgr: [phone] * Ok Bruner RN - 10/06/2021 5:25 [...] while in the ICU. Jorge Guzman MD, [facility] * Manny [...] Consult per Dr. Aurelio MENDOZA, PharmD Phone: [phone] 10/05/2021 7:12 AM * Luis Pina MD - 10/05/2021 6:56 AM CDT Surgery progress note Subjective: NAEO, Pain adequately controlled, denies nausea, tolerating NG. Objective: Filed Vitals: 10/05/21 0200 10/05/21 0300 10/05/21 0400 10/05/21 0500 BP: 117/45 124/42 130/61 120/82 Pulse: 80 86 81 86 Resp: 16 16 18 Temp: 100.6 ??F (38.1 ??C) [...] - 10.1 MG/DL Final Recent Labs Lab 10/02/21181410/02/21181410/03/21 0208 10/03/21 0512 10/03/21 0720 10/03/21 1106 [...] OK to begin SQ Lovenox Please HALO ignition specialist resident with any questions. Staff: Dr. Tushar JAIME MD 10/05/2021 [facility] General Surgery Attending Attestation--POD#2 s/p splenectomy [...] downgraded from ICU. ?? Luis Pina MD [facility] General Surgery Pgr: [phone] ? LUIS PINA MD * Jorge Guzman [...] the critical care unit Jorge Guzman MD, [facility] * DEON Clarke - 10/04/2021 9:16 AM CDT Speech Pathology Note Speech pathology received order for initial evaluation this date. Completed clinical chart review and discussed with surgical nurse, Dr. Jaime, who confirmed plan for patient [...] PRN - DVT prophylaxis: SCD Please HALO ignition specialist resident with any questions. Staff: Dr. Pina [...] Pina MD - 10/05/2021 12:00 PM CDT [facility] General Surgery Attending Attestation--POD#1 s/p splenectomy I saw and examined Zee G Martinez in her room (ICU-A 11) at [...] once downgraded from ICU. Luis Pina MD [facility] General Surgery Pgr: [phone] LUIS PINA MD * Jorge Guzman MD [...] -We will follow Jorge Guzman MD, FACS [facility] Trauma and Acute Care Surgery documented in this encounter H&P Notes * RAYA Castillo - 10/03/2021 4:22 AM CDT Images from the original note were not included. HISTORY & PHYSICAL SURGICAL CRITICAL CARE SERVICE RAYA CASTILLO, 10/03/2021, 4:22 AM [facility] ACUTE CARE SURGERY SERVICE: EMERGENCY SURGERY, TRAUMA, SURGICAL CRITICAL CARE [address] [place] [id number] TO CONTACT PROVIDER: Advanced Practice Provider: [id number] or [id number] Emergency Surgery MD: [id number] Trauma Surgery MD: [id number] Physicians: Jorge Guzman MD, FACS; Slade Carey MD; Miguel Armas MD; Darrell Mabry MD, MPH, FACS, FCCP; Syd Gold MD, FACS Advanced Practice Providers: [...] pain and weakness so she presented to [facility] in [place] ER where she was found to be anemic and CT scan found a high grade s pleen laceration. Patient denies any falls or trauma that may have contributed to her problem. Patient also reports taking NSAIDs daily for her chronic back pain. Initial Hgb @ 1815 in the ER was 7.9, Plt 229. Patient was accepted as a transfer by [facility] General Surgery Dr Pina to the ER at [facility]. Patient was reproted given KCentra at the [...] No results found for: PH, PCO2, PO2, [id number], BICARBWB, BASEDEFICIT, BASEEXCESS No results for input(s): [...] with non-operative management for now. (See Rosaura et al Selective non-operative mgt of blunt splenic injury: An [facility] practice managementguideline) However if there is any deterioration [...] on Sunday morning and last meal was yesterday morning as well. She reports a history of myasthenia gravis and was taking pyridostigmine, however she has not taking that since August because it was causing stomach issues, she follows with a quality rn. PMH: Hypertension, A. fib on Eliquis, myasthenia [...] affect Diagnostic Data: Labs: Recent Labs Lab 10/02/211814 NA 138 K 3.7 CL 107 CO2 23.6 AGAP 7.4 BUN 21* CR 1.10* BUNCREATININ 19.1 GFRNON 48* GFR 56* GLU 173* CA 9.0 MAGNESIUM 2.4 Recent Labs Lab 10/02/211814 WBC 6.9 RBC 2.70* HGB 7.9* HCT 24.8* MCV 91.9 MCH 29.3 MCHC 31.9 PLT 229 RDW 13.8 MPV 11.2 PERNEU 51.7 PERLYM 25.5 PERMON 21.5* NEUC 3.56 LYMC 1.76 Recent Labs Lab 10/02/21181410/02/[address] abdomen/pelvis with IV contrast ?? IMPRESSION: 1. High-grade splenic rupture. Recommend general surgical consultation. Cosigned by Luis Pina MD at 10/03/2021 11:02 PM CDT Associated attestation - Luis Pina MD - 10/03/2021 11:02 PM CDT [facility] General Surgery Attending Attestation I had accepted Zee Martinez from Dr. Hicks at [facility] ([place]), then saw and examined Zee Martinez in the ER J at 05:15 today (10/03/21), have reviewed Dr. Lim's H+P above and concur with her findings, impressions and recommendations. Please see above/below for additional details. 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 to [facility] where labs and CT scan were obtained. CT demonstrated splenic laceration. She was normotensive at [facility] and received a CVP line, 2 x 20G PIV, and 2 u pRBC's.X-fered by ambulance to [facility]. 2 additional units pRBC's started en route [...] personally reviewed the CT scan obtained at [facility] and observed significant hemoperitoneum as well as [...] risks (including but not limited to , [place], CVA, DVT, PE, UTI, bleeding, infection, damage to internal organs), benefits and alternatives to Ms. Martinez. She understands and wishes to proceed, and identifies her son as POA in unlikely event such becomes necessary. Will proceed to the operating room shortly as they become available as this case has not been declared an emergency. Luis Pina MD [facility] General Surgery Pgr: [phone] LUIS PINA MD documented in this encounter OR Notes * Brief Op Note - Micha Valdes MD - 10/03/2021 7:51 AM CDT HS Brief Op HSHSLAPAROTOMY EXPLORATORY SPLEENECTOMY Procedure Note Zee Martinez 10/03/2021 0515 Procedure(s) (LRB): LAPAROTOMY EXPLORATORY SPLEENECTOMY (N/A) Right Radial arterial line Surgeon(s): MD Nils Stover MD Marc R Garfinkel, MD Shawn M Poole, MD Telemedicine Physician: Harlan Barahona MS3 Anesthesia: General Pre-Op Diagnosis: SPLEEN TRAUMA [...] Pina MD - 10/03/2021 11:14 PM CDT [facility] General Surgery Attending Attestation I was present for above procedure as described. I agree with description provided by resident note above, with any modifications noted below, if necessary. I dictated a full operative report; work confirmation number is: [id number]. mr Luis Pina MD [facility] General Surgery Pgr: [phone] * Op Note - Luis Pina MD [...] daysprior to admission. She then presented to [facility] in [place], [place] with a syncopal episode and abdominal pain in the left upper quadrant. Labs and a CT scan were obtained. Labs demonstrated a marked reduction in her hemoglobin and a CT scan demonstrated a high-grade splenic trauma. She had denied falls or motor vehicle accident or other external trauma. She was brought by ambulance to [facility] and given a total of 4 [...] were controlled with either cautery or silk [id number] sutures. One serosal injury to the stomach [...] on the judgment of the anesthesiologist and bran mixer and was transferred directly to the ICU in stable condition and on no pressors. Surgical ICU management will ensue with Dr. Ferrera with us following. There was no complication from the procedure and I was present for the entire duration of the case. 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: Tamika LANDA : 1945 Requested By: MILEY MOHAN Order Number: [id number] Reading MD: Measurements Intervals [place] Rate: 82 P: 73 PA: 147 QRS: 25 QRSD: 74 T: 49 QT: 385 QTc: 450 Interpretive Statements SINUS RHYTHM ECG 12 lead Narrative [facility]-ED Test Date: 2021-10-03 Pat Name: ZEE MARTINEZ Department: 70 Room: EXAM 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: Female 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 Helper: Tamika LANDA : 1945 Requested By: DIANA CLOUD Order Number: [id number] Reading MD: Measurements Intervals [place] Rate: 81 P: 66 PA: 136 QRS: 19 QRSD: 73 T: 46 [...] O POSITIVE ANTIBODY SCREEN NEGATIVE SAMPLE EXPIRATION: 10/06/2021,2359 UNIT NUMBER [id number] PRODUCT: PC LEUKOPOOR UNIT DIVISION 00 UNIT STATUS ISSUED ISSUE DATE/TIME [id number] PRODUCT CODE [id number] ABO/RH Unit O POS ABO/RH UNIT ISBT CODE 5100 UNIT EXPIRATION DATE TRANSFUSION STATUS OK TO TRANSFUSE CROSSMATCH COMPATIBLE-EXM UNIT NUMBER [id number] PRODUCT: PC LEUKOPOOR UNIT DIVISION 00 UNIT STATUS ISSUED ISSUE DATE/TIME PRODUCT CODE [id number] ABO/RH Unit O POS ABO/RH UNIT ISBT CODE 5100 UNIT EXPIRATION DATE TRANSFUSION STATUS OK TO TRANSFUSE CROSSMATCH COMPATIBLE-EXM UNIT NUMBER [id number] PRODUCT: PC LEUKO PHERE BAG2 UNIT DIVISION 00 UNIT STATUS ISSUED ISSUE DATE/TIME [id number] PRODUCT CODE [id number] ABO/RH Unit O POS ABO/RH UNIT ISBT CODE 5100 UNIT EXPIRATION DATE 685561224544 TRANSFUSION STATUS OK TO TRANSFUSE CROSSMATCH COMPATIBLE-EXM ORDER PLATELET PHERESIS Result Value Ref Range UNITS ORDERED 1 UNIT NUMBER [id number] PRODUCT: PLT PHERESIS LEUKORED 7D UNIT DIVISION 00 UNIT STATUS ISSUED ISSUE DATE/TIME 512424665989 PRODUCT CODE [id number] ABO/RH Unit O POS ABO/RH UNIT ISBT CODE 5100 UNIT EXPIRATION DATE TRANSFUSION STATUS OK TO TRANSFUSE ORDER FRESH FROZEN PLASMA, 2 Units Result Value Ref Range UNITS ORDERED 2 UNIT NUMBER [id number] PRODUCT: THAWED PLASMA UNIT DIVISION 00 UNIT STATUS ISSUED ISSUE DATE/TIME 852678961714 PRODUCT CODE [id number] ABO/RH Unit A POS ABO/RH UNIT ISBT CODE 6200 UNIT EXPIRATION DATE 682466862891 TRANSFUSION STATUS OK TO TRANSFUSE UNIT NUMBER [id number] PRODUCT: THAWED PLASMA BAG 3 UNIT DIVISION 00 UNIT STATUS ISSUED ISSUE DATE/TIME PRODUCT CODE [id number] ABO/RH Unit AB POS ABO/RH UNIT ISBT CODE 8400 UNIT EXPIRATION DATE 750575495511 TRANSFUSION STATUS OK TO TRANSFUSE BIOFIRE PCR [...] NO PATIENT IN ICU UNKNOWN RESIDENT OF [facility] NO IMAGING STUDIES No orders to [...] Mohan. ED Course as of Oct 03 657 Mon Oct 03, 2021 0235 HGB(!): 7.7 [...] CDT Patient brought in via EMS from [facility] ER for splenic laceration. 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 [address] [place], [place] [address] documented as of this encounter Goals Goal [...] 70 - 109 10/08/2021 7:06 AM CDT [facility] 10/08/2021 6:08 AM CDT Luis Pina MD POCT ORDERABLES - DEVICE Fin al Result Performing Organization Address [facility] [facility] de Phone Number [facility] [place] [facility] [address] [place] [address], [phone] * POCT glucose (10/08/2021 1:10 AM CDT) GLUCOSE POC 86 70 - 109 10/08/2021 1:15 AM CDT [facility] 10/08/2021 1:10 AM CDT Luis Pina MD POCT ORDERABLES - DEVICE Fin al Result Performing Organization Address [facility] de Phone Number [facility] [place] [address] [place] [address], [phone] * (ABNORMAL) BASIC METABOLIC PANEL (10/07/2021 11:56 PM CDT) SODIUM S/P/B 134(L) 136 - 145 MMOL/L 10/08/2021 12:43 AM CDT [facility] [place] POTASSIUM S/P/B 4.8 3.5 - 5.1 MMOL/L 10/08/2021 12:43 AM CDT [facility] [place] Comment:MILD HEMOLYSIS, RESU LT MAY BE AFFECTED. CHLORIDE S/P/B 105 98 - 107 MMOL/L 10/08/2021 12:43 AM CDT [facility] [place] CO2 23.5 21.0 - 32.0 MMOL/L 10/08/2021 12:43 AM CDT [facility] [place] GLUCOSE 87 74 - 106 MG/DL 10/08/2021 12:43 AM CDT [facility] [place] BUN 18 7 - 18 MG/DL 10/08/2021 12:43 AM CDT [facility] [place] CREATININE S/P/B 0.68 0.55 - 1.02 MG/DL 10/08/2021 12:43 AM CDT [facility] [place] CALCIUM S/P/B 8.7 8.5 - 10.1 MG/DL 10/08/2021 12:43 AM CDT [facility] ANION GAP 5.5 5.0 - 15.0 MMOL/L 10/08/2021 12:43 AM CDT [facility] [place] OSMOLALITY (CALC) 279 MOSM/KG 022 12:43 AM CDT [facility] [place] Comment:REFERENCE RANGE NOT ESTABLISHED EGFR NON-AFR. AMER. 84(L) >90 ML/MIN/1. 73 M2 10/08/2021 12:43 AM T [facility] [place] EGFR AFR. AMER. >90 >90 ML/MIN/1. 73 M2 10/08/2021 12:43 AM CDT [facility] [place] GFR NOTES GFR REFERENCE S: 10/08/2021 12:43 AM T [facility] [place] Comment: THE ESTIMATED GFR IS CALCULATED [...] us Ayden Moore MD LABORATORY Final Result [facility] [place] [facility] [address] [place] [address], [id number] * MAGNESIUM (10/07/2021 11:56 PM CDT) Pathologist [facility] MAGNESIUM 2.2 1.6 - 2.6 MG/DL 10/08/2021 12:43 AM CDT [facility] [place] Comment:RESULT QUESTIONABLE DUE TO HEMOLYSIS, RECOMMEND RECOLLECTION. 10/07/2021 11:5 6 PM CDT us Ayden Moore MD LABORATORY Final Result Performing Organization Address [facility] Co de Phone Number [facility] [place] [facility] [address] [place] [address], [phone] * (ABNORMAL) PHOSPHORUS, INORGANIC PHOSPHATE (10/07/2021 11:56 PM CDT) Pathologist [facility] PHOSPHORUS 1.6(L) 2.5 - 4.9 MG/DL 10/08/2021 12:43 AM CDT [facility] [place] 10/07/2021 11:5 6 PM CDT us Ayden Moore MD LABORATORY Final Result Performing Organization Address [facility] Co de Phone Number [facility] [place] [address] [place] [address], [phone] * (ABNORMAL) CBC, AUTO, NO DIFF (10/07/2021 11:56 PM CDT) Pathologist [facility] WBC 12.0(H) 4.0 - 10.8 x10'3/uL 10/08/2021 12:25 AM CDT [facility] [place] RBC 3.36(L) 4.10 - 5.40 x10'6/uL 10/08/2021 12:25 AM CDT [facility] HGB 9.2(L) 12.0 - 16.0 G/DL 10/08/2021 12:25 AM CDT [facility] HCT 28.2(L) 36.0 - 47.0 % 10/08/2021 12:25 AM CDT [facility] [place] MCV 83.9 78.0 - 100.0 FL 10/08/2021 12:25 AM CDT [facility] MCH 27.4 27.0 - 31.0 PG 10/08/2021 12:25 AM CDT [facility] [place] MCHC 32.6(L) 33.0 - 36.0 G/DL 10/08/2021 12:25 AM CDT [facility] [place] RDW 17.2(H) 11.5 - 14.5 % 10/08/2021 12:25 AM CDT [facility] PLT 171 150 - 350 x10'3/uL 10/08/2021 12:25 AM CDT [facility] [place] MPV 10.7(H) 7.4 - 10.4 FL 10/08/2021 12:25 AM CDT [facility] [place] 10/07/2021 11:5 6 PM CDT us Ayden Moore MD LABORATORY Final Result [facility] [place] [facility] [address] [place] [address], [id number] * (ABNORMAL) BASIC METABOLIC PANEL (10/07/2021 3:25 PM CDT) Pathologist [facility] SODIUM S/P/B 137 136 - 145 MMOL/L 10/07/2021 4:01 PM CDT [facility] [place] POTASSIUM S/P/B 3.8 3.5 - 5.1 MMOL/L 10/07/2021 4:01 PM CDT [facility] [place] CHLORIDE S/P/B 102 98 - 107 MMOL/L 10/07/2021 4:01 PM CDT [facility] [place] CO2 23.9 21.0 - 32.0 MMOL/L 10/07/2021 4:01 PM CDT [facility] [place] GLUCOSE 98 74 - 106 MG/DL 10/07/2021 4:01 PM CDT [facility] BUN 18 7 - 18 MG/DL 10/07/2021 4:01 PM T [facility] CREATININE S/P/B 0.67 0.55 - 1.02 MG/DL 10/07/2021 4:01 PM T [facility] [place] CALCIUM S/P/B 8.5 8.5 - 10.1 MG/DL 10/07/2021 4:01 PM T [facility] ANION GAP 11.1 5.0 - 15.0 MMOL/L 10/07/2021 4:01 PM T [facility] OSMOLALITY (CALC) 286 MOSM/KG 022 4:01 PM T [facility] Comment:REFERENCE RANGE NOT ESTABLISHED EGFR NON-AFR. AMER. 85(L) >90 ML/MIN/1. 73 M2 10/07/2021 4:01 PM T [facility] EGFR AFR. AMER. >90 >90 ML/MIN/1. 73 M2 10/07/2021 4:01 PM T [facility] [place] GFR NOTES GFR REFERENCE S: 10/07/2021 4:01 PM T [facility] Comment: THE ESTIMATED GFR IS CALCULATED [...] us Ayden Moore MD LABORATORY Final Result [facility] [address] [place] [address], [id number] * XR ABD KUB (10/07/2021 12:40 PM [...] By: Ruth Orr MD, 10/07/2021 2:16 PM us Luis Pina MD GENERAL IMAGING Final Result * (ABNORMAL) CBC, AUTO, NO DIFF (10/07/2021 8:25 AM CDT) WBC 13.4(H) 4.0 - 10.8 x10'3/uL 10/07/2021 8:55 AM CDT [facility] RBC 3.26(L) 4.10 - 5.40 x10'6/uL 10/07/2021 8:55 AM CDT [facility] HGB 9.0(L) 12.0 - 16.0 G/DL 10/07/2021 8:55 AM CDT [facility] HCT 27.8(L) 36.0 - 47.0 % 10/07/2021 8:55 AM CDT [facility] [place] MCV 85.3 78.0 - 100.0 FL 10/07/2021 8:55 AM CDT [facility] MCH 27.6 27.0 - 31.0 PG 10/07/2021 8:55 AM CDT [facility] MCHC 32.4(L) 33.0 - 36.0 G/DL 10/07/2021 8:55 AM CDT [facility] RDW 17.2(H) 11.5 - 14.5 % 10/07/2021 8:55 AM CDT [facility] PLT 176 150 - 350 x10'3/uL 10/07/2021 8:55 AM CDT [facility] MPV 11.3(H) 7.4 - 10.4 FL 10/07/2021 8:55 AM CDT [facility] 10/07/2021 8:25 AM CDT us Kanu Wilcox MD LABORATORY Final Result Performing Organization Address [facility] Co de Phone Number [facility] [place] [address] [place] [address], [id number] * MAGNESIUM (10/07/2021 5:14 AM CDT) MAGNESIUM 2.5 1.6 - 2.6 MG/DL 10/07/2021 6:06 AM CDT [facility] [place] 10/07/2021 5:14 AM CDT Laura Carrillo NP LABORATORY Final Result Performing Organization Address [facility] Co de Phone Number [facility] [place] [address] [place] [address], [id number] * (ABNORMAL) PHOSPHORUS, INORGANIC PHOSPHATE (10/07/2021 5:14 AM CDT) PHOSPHORUS 2.1(L) 2.5 - 4.9 MG/DL 10/07/2021 6:06 AM CDT [facility] [place] 10/07/2021 5:14 AM CDT Laura Carrillo NP LABORATORY Final Result Performing Organization Address [facility] de Phone Number [facility] [place] [facility] [address] [place] [address], [id number] * (ABNORMAL) BASIC METABOLIC PANEL (10/07/2021 5:14 AM CDT) SODIUM S/P/B 134(L) 136 - 145 MMOL/L 10/07/2021 6:06 AM CDT [facility] POTASSIUM S/P/B 2.8(LL) 3.5 - 5.1 MMOL/L 10/07/2021 6:06 AM CDT [facility] Comment: Critical Result(s) Called to and read back by: ?? RN BALDEV ??at: 06:04:25 ?? 10/07/2021 by AMM. CHLORIDE S/P/B 100 98 - 107 MMOL/L 10/07/2021 6:[address] [facility] CO2 26.0 21.0 - 32.0 MMOL/L 10/07/2021 6:[address] [facility] GLUCOSE 93 74 - 106 MG/DL 10/07/2021 6:[address] [facility] BUN 16 7 - 18 MG/DL 10/07/2021 6:[address] [facility] CREATININE S/P/B 0.69 0.55 - 1.02 MG/DL 10/07/2021 6:[address] [facility] CALCIUM S/P/B 8.4(L) 8.5 - 10.1 MG/DL 10/07/2021 6:[address] [facility] ANION GAP 8.0 5.0 - 15.0 MMOL/L 10/07/2021 6:[address] [facility] OSMOLALITY (CALC) 279 MOSM/KG 022 6:[address] [facility] Comment:REFERENCE RANGE NOT ESTABLISHED EGFR NON-AFR. AMER. 84(L) >90 ML/MIN/1. 73 M2 10/07/2021 6:[address] [facility] EGFR AFR. AMER. >90 >90 ML/MIN/1. 73 M2 10/07/2021 6:[address] [facility] GFR NOTES GFR REFERENCE S: 10/07/2021 6:[address] [facility] Comment: THE ESTIMATED GFR IS [...] m2 10/07/2021 5:14 AM CDT Laura Carrillo [employer] LABORAT[facility] Final Result Performing Organization Address [facility] Co de Phone Number [facility] [place] [address] [place] [address], [id number] * Vancomycin Random Level (10/07/2021 5:14 AM CDT) VANCOMYCIN RANDOM 11.5 MCG/ML 10/07/2021 5:56 AM CDT [facility] Comment:REFERENCE RANGE NOT ESTABLISHED 10/07/2021 5:14 AM CDT Hui Carlos [employer] [facility] Final Result Performing Organization Address [facility] de Phone Number [facility] [place] [address] [place] [address], [id number] * POCT glucose (10/06/2021 11:25 PM CDT) GLUCOSE POC 92 70 - 109 10/06/2021 11:33 PM CDT [facility] 10/06/2021 11:2 5 PM CDT Jorge Guzman MD POCT ORDERABLES - DEVICE Sirena l Result Performing Organization Address [facility] de Phone Number [facility] [address] [place] [address], [id number] * POCT glucose (10/06/2021 6:21 PM CDT) GLUCOSE POC 89 70 - 109 10/06/2021 6:23 PM CDT [facility] 10/06/2021 6:21 PM CDT us Jorge Guzman MD POCT ORDERABLES - DEVICE Sirena l Result Performing Organization Address [facility]/ZIP Co de Phone Number [facility] [place] [address] [place] [address], [place] [phone] * POCT glucose (10/06/2021 11:51 AM CDT) GLUCOSE POC 91 70 - 109 10/06/2021 11:54 AM CDT [facility] 10/06/2021 11:5 1 AM CDT us Jorge Guzman MD POCT ORDERABLES - DEVICE Sirena l Result Performing Organization Address [facility] Co de Phone Number [facility] [place] [address] [place] [address], [place] [phone] * MRSA PCR nares Screening (10/06/2021 9:30 AM CDT) SPECIMEN SOURCE RESPIRATORY, NOSE 10/06/2021 10:30 AM CDT [facility] MRSA BY PCR NASAL METHICILLIN RESISTANT STAPH AUREUS NOT DETECTED 10/07/2021 11:48 AM CDT [facility] NASAL STRUCTURE / Unknown 10/06/2021 9:30 AM CDT us Jorge Guzman MD MICROBIOLOGY - GENERAL ORDERA BLES Final Result Performing Organization Address [facility] Co de Phone Number [facility] [place] [address] [place] [address], [place] [phone] * POCT glucose (10/06/2021 8:11 AM CDT) GLUCOSE POC 88 70 - 109 10/06/2021 8:14 AM CDT [facility] 10/06/2021 8:11 AM CDT us Jorge Guzman MD POCT ORDERABLES - DEVICE Sirena l Result Performing Organization Address [facility] de Phone Number [facility] [place] [facility] [address] [place] [address], [id number] * POCT glucose (10/06/2021 5:05 AM CDT) GLUCOSE POC 99 70 - 109 10/06/2021 5:10 AM CDT [facility] 10/06/2021 5:05 AM CDT Jorge Guzman MD POCT ORDERABLES - DEVICE Sirena l Result Performing Organization Address [facility] de Phone Number [facility] [place] [address] [place] [address], [id number] * (ABNORMAL) PHOSPHORUS, INORGANIC PHOSPHATE (10/06/2021 5:00 AM CDT) PHOSPHORUS 1.8(L) 2.5 - 4.9 MG/DL 10/06/2021 6:11 AM CDT [facility] 10/06/2021 5:00 AM CDT Oliver SIMS LABORATORY Final Result Performing Organization Address [facility] Co de Phone Number [facility] [place] [address] [place] [address], [id number] * MAGNESIUM (10/06/2021 5:00 AM CDT) MAGNESIUM 2.0 1.6 - 2.6 MG/DL 10/06/2021 6:11 AM CDT [facility] 10/06/2021 5:00 AM CDT Oliver SIMS LABORATORY Final Result [facility] [place] [address] [place] [address], [id number] * (ABNORMAL) CBC, AUTO, NO DIFF (10/06/2021 5:00 AM CDT) WBC 25.0(H) 4.0 - 10.8 x10'3/uL 10/06/2021 5:25 AM CDT [facility] RBC 3.37(L) 4.10 - 5.40 x10'6/uL 10/06/2021 5:25 AM CDT [facility] HGB 9.4(L) 12.0 - 16.0 G/DL 10/06/2021 5:25 AM CDT [facility] HCT 28.7(L) 36.0 - 47.0 % 10/06/2021 5:25 AM CDT [facility] MCV 85.2 78.0 - 100.0 FL 10/06/2021 5:25 AM CDT [facility] MCH 27.9 27.0 - 31.0 PG 10/06/2021 5:25 AM CDT [facility] MCHC 32.8(L) 33.0 - 36.0 G/DL 10/06/2021 5:25 AM CDT [facility] RDW 17.7(H) 11.5 - 14.5 % 10/06/2021 5:25 AM CDT [facility] PLT 136(L) 150 - 350 x10'3/uL 10/06/2021 5:25 AM CDT [facility] MPV 11.5(H) 7.4 - 10.4 FL 10/06/2021 5:25 AM CDT [facility] 10/06/2021 5:00 AM CDT Oliver SIMS LABORATORY Final Result [facility] [place] [address] [place] [address], [phone] * (ABNORMAL) COMPREHENSIVE METABOLIC PANEL (10/06/2021 5:00 AM CDT) SODIUM S/P/B 135(L) 136 - 145 MMOL/L 10/06/2021 6:11 AM CDT [facility] POTASSIUM S/P/B 2.8(LL) 3.5 - 5.1 MMOL/L 10/06/2021 6:11 AM CDT [facility] Comment: Critical Result(s) Called to and read back by: TUNDE NEAL ?? at: 06:05:24 ?? 10/06/2021 by KAMILAH. CHLORIDE S/P/B 100 98 - 107 MMOL/L 10/06/2021 6:11 AM CDT [facility] CO2 30.3 21.0 - 32.0 MMOL/L 10/06/2021 6:11 AM CDT [facility] GLUCOSE 89 74 - 106 MG/DL 10/06/2021 6:11 AM CDT [facility] [place] BUN 15 7 - 18 MG/DL 10/06/2021 6:11 AM CDT [facility] CREATININE S/P/B 0.62 0.55 - 1.02 MG/DL 10/06/2021 6:11 AM CDT [facility] CALCIUM S/P/B 8.7 8.5 - 10.1 MG/DL 10/06/2021 6:11 AM CDT [facility] BILIRUBIN TOTAL S/P/B 0.7 0.2 - 1.0 MG/DL 10/06/2021 6:11 AM CDT [facility] [place] ALKALINE PHOSPHATASE S/P/B 91 55 - 142 U/L 10/06/2021 6:11 AM T [facility] AST 17 15 - 37 U/L 10/06/2021 6:[address] [facility] ALT 27 13 - 56 U/L 10/06/2021 6:[address] [facility] TOTAL PROTEIN S/P/B 5.9(L) 6.4 - 8.2 G/DL 10/06/2021 6:[address] [facility] ALBUMIN S/P/B 2.6(L) 3.4 - 5.0 G/DL 10/06/2021 6:[address] [facility] ANION GAP 4.7(L) 5.0 - 15.0 MMOL/L 10/06/2021 6:[address] [facility] OSMOLALITY (CALC) 280 MOSM/KG 022 6:[address] [facility] Comment:REFERENCE RANGE NOT ESTABLISHED EGFR NON-AFR. AMER. 87(L) >90 ML/MIN/1. 73 M2 10/06/2021 6:[address] [facility] EGFR AFR. AMER. >90 >90 ML/MIN/1. 73 M2 10/06/2021 6:[address] [facility] GFR NOTES GFR REFERENCE S: 10/06/2021 6:[address] [facility] Comment: THE ESTIMATED GFR IS [...] SIMS LABORATORY Final Result Performing Organization Address [facility] Co de Phone Number [facility] [place] [facility] [address] [place] [address], [place] [phone] * (ABNORMAL) POCT glucose (10/05/2021 11:11 PM CDT) GLUCOSE POC 112(H) 70 - 109 10/05/2021 11:32 PM CDT [facility] [place] 10/05/2021 11:1 1 PM CDT us Jorge Guzman MD POCT ORDERABLES - DEVICE Sirena l Result Performing Organization Address [facility] Co de Phone Number [facility] [place] [facility] [address] [place] [address], [place] [phone] * (ABNORMAL) POCT glucose (10/05/2021 5:58 PM CDT) GLUCOSE POC 114(H) 70 - 109 10/05/2021 6:10 PM CDT [facility] [place] 10/05/2021 5:58 PM CDT us Jorge Guzman MD POCT ORDERABLES - DEVICE Sirena l Result Performing Organization Address [facility] Co de Phone Number [facility] [place] [facility] [address] [place] [address], [place] [phone] * (ABNORMAL) POCT glucose (10/05/2021 11:40 AM CDT) GLUCOSE POC 124(H) 70 - 109 10/05/2021 11:56 AM CDT [facility] [place] [facility] 10/05/2021 11:4 0 AM CDT Jorge Guzman MD POCT ORDERABLES - DEVICE Sirena l Result Performing Organization Address [facility] de Phone Number [facility] [place] [facility] [address] [place] [address], [place] [phone] * PHOSPHORUS, INORGANIC PHOSPHATE (10/05/2021 4:56 AM CDT) PHOSPHORUS 2.6 2.5 - 4.9 MG/DL 10/05/2021 5:58 AM CDT [facility] [place] 10/05/2021 4:56 AM CDT Madie Jaime MD LABORATORY Final Resul t Performing Organization Address [facility] Phone Number [facility] [place] [address] [place] [address], [place] [phone] * MAGNESIUM (10/05/2021 4:56 AM CDT) MAGNESIUM 2.3 1.6 - 2.6 MG/DL 10/05/2021 5:58 AM CDT [facility] 10/05/2021 4:56 AM CDT Madie Jaime MD LABORATORY Final Resul t Performing Organization Address [facility] de Phone Number [facility] [place] [address] [place] [address], [place] [phone] [id number] * (ABNORMAL) COMPREHENSIVE METABOLIC PANEL (10/05/2021 4:56 AM CDT) SODIUM S/P/B 135(L) 136 - 145 MMOL/L 10/05/2021 5:58 AM CDT [facility] [place] POTASSIUM S/P/B 2.9(LL) 3.5 - 5.1 MMOL/L 10/05/2021 5:58 AM CDT [facility] [place] Comment: Critical Result(s) Called to and read back by: TUNDE MEHTA ?? at: 05:56:38 ?? 10/05/2021 by KAMILAH. CHLORIDE S/P/B 101 98 - 107 MMOL/L 10/05/2021 5:58 AM CDT [facility] [place] CO2 29.5 21.0 - 32.0 MMOL/L 10/05/2021 5:58 AM CDT [facility] [place] GLUCOSE 112(H) 74 - 106 MG/DL 10/05/2021 5:58 AM CDT [facility] [place] BUN 15 7 - 18 MG/DL 10/05/2021 5:58 AM CDT [facility] [place] CREATININE S/P/B 0.81 0.55 - 1.02 MG/DL 10/05/2021 5:58 AM CDT [facility] [place] CALCIUM S/P/B 8.7 8.5 - 10.1 MG/DL 10/05/2021 5:58 AM CDT [facility] [place] BILIRUBIN TOTAL S/P/B 0.6 0.2 - 1.0 MG/DL 10/05/2021 5:58 AM CDT [facility] ALKALINE PHOSPHATASE S/P/B 88 55 - 142 U/L 10/05/2021 5:58 AM CDT [facility] AST 30 15 - 37 U/L 10/05/2021 5:58 AM CDT [facility] ALT 34 13 - 56 U/L 10/05/2021 5:58 AM CDT [facility] TOTAL PROTEIN S/P/B 6.4 6.4 - 8.2 G/DL 10/05/2021 5:58 AM CDT [facility] ALBUMIN S/P/B 2.8(L) 3.4 - 5.0 G/DL 10/05/2021 5:58 AM CDT [facility] ANION GAP 4.5(L) 5.0 - 15.0 MMOL/L 10/05/2021 5:58 AM CDT [facility] OSMOLALITY (CALC) 282 MOSM/KG 022 5:58 AM CDT [facility] Comment:REFERENCE RANGE NOT ESTABLISHED EGFR NON-AFR. AMER. 70(L) >90 ML/MIN/1. 73 M2 10/05/2021 5:58 AM CDT [facility] EGFR AFR. AMER. 81(L) >90 ML/MIN/1. 73 M2 10/05/2021 5:58 AM CDT [facility] GFR NOTES GFR REFERENCE S: 10/05/2021 5:58 AM CDT [facility] Comment: THE ESTIMATED GFR IS CALCULATED [...] ml/min/1.73 m2 10/05/2021 4:56 AM CDT us Madie Jaime MD LABORATORY Final Resul t [facility] [place] [address] [place] [address], [id number] * (ABNORMAL) CBC, AUTO, NO DIFF (10/05/2021 4:56 AM CDT) WBC 42.0(H) 4.0 - 10.8 x10'3/uL 10/05/2021 5:24 AM CDT [facility] RBC 3.43(L) 4.10 - 5.40 x10'6/uL 10/05/2021 5:24 AM CDT [facility] HGB 9.3(L) 12.0 - 16.0 G/DL 10/05/2021 5:24 AM CDT [facility] HCT 28.5(L) 36.0 - 47.0 % 10/05/2021 5:24 AM CDT [facility] MCV 83.1 78.0 - 100.0 FL 10/05/2021 5:24 AM CDT [facility] MCH 27.1 27.0 - 31.0 PG 10/05/2021 5:24 AM CDT [facility] MCHC 32.6(L) 33.0 - 36.0 G/DL 10/05/2021 5:24 AM CDT [facility] RDW 17.9(H) 11.5 - 14.5 % 10/05/2021 5:24 AM CDT [facility] PLT 123(L) 150 - 350 x10'3/uL 10/05/2021 5:35 AM CDT [facility] MPV 10.5(H) 7.4 - 10.4 FL 10/05/2021 5:35 AM CDT [facility] 10/05/2021 4:56 AM CDT Madie Jaime MD LABORATORY Final Resul t [facility] [place] [address] [place] [address], [id number] * (ABNORMAL) POCT glucose (10/04/2021 11:44 PM CDT) [facility] GLUCOSE POC 149(H) 70 - 109 10/04/2021 11:46 PM CDT [facility] Comment:RN Notified 10/04/2021 11:4 4 PM CDT us Jorge D Thomas MD POCT ORDERABLES - DEVICE Sirena l Result Performing Organization Address City/[facility]/ZIP Co de Phone Number [facility] [address] [place] [address], [id number] * CULTURE, BACTERIA BLOOD X2 (10/04/2021 10:02 PM CDT) SPEC DESCRIPTION BLOOD LINE 10/04/2021 8:21 PM CDT [facility] SPECIAL REQUESTS NO SPECIAL REQUEST 10/04/2021 8:21 PM CDT [facility] CULTURE RESULT NO GROWTH 5 DAYS 10/09/2021 11:45 PM CDT [facility] BLOOD SPECIMEN OBTAINED FOR BLOOD CULTURE / Unknown 10/04/2021 10:02 PM CDT 10/04/2021 10:26 PM CDT us Jorge Guzman MD MICROBIOLOGY - GENERAL ORDERA BLES Final Result Performing Organization Address [facility] Co de Phone Number [facility] [address] [place] [address], [id number] * CULTURE, BACTERIA BLOOD X2 (10/04/2021 9:54 PM CDT) SPEC DESCRIPTION BLOOD 10/04/2021 8:21 PM CDT [facility] SPECIAL REQUESTS NO SPECIAL REQUEST 10/04/2021 8:21 PM CDT [facility] CULTURE RESULT NO GROWTH 5 DAYS 10/09/2021 11:45 PM CDT [facility] BLOOD SPECIMEN OBTAINED FOR BLOOD CULTURE / Unknown 10/04/2021 9:54 PM CDT 10/04/2021 10:24 PM CDT us Jorge Guzman MD MICROBIOLOGY - GENERAL ORDERA BLES Final Result Performing Organization Address City/[facility]/ZIP Co de Phone Number [facility] [address] [place] [id number], [id number] * XR CHEST PORTABLE (10/04/2021 9:18 PM [...] By: Mele Larson MD, 10/04/2021 9:26 PM Jorge Guzman MD GENERAL IMAGING Final Result * LACTIC ACID - SINGLE (10/04/2021 8:37 PM CDT) LACTIC ACID VENOUS 1.1 0.4 - 2.0 MMOL/L 10/04/2021 9:12 PM CDT [facility] 10/04/2021 8:37 PM CDT us Jorge Guzman MD LABORATORY Final Result Performing Organization Address City/[facility] Co de Phone Number [facility] [address] [place] [address], [place] [phone] * (ABNORMAL) POCT glucose (10/04/2021 5:15 PM CDT) GLUCOSE POC 151(H) 70 - 109 10/04/2021 5:45 PM CDT [facility] 10/04/2021 5:15 PM CDT us Jorge Guzman MD POCT ORDERABLES - DEVICE Sirena l Result Performing Organization Address [facility] Co de Phone Number [facility] [place] [address] [place] [address], [place] [phone] * (ABNORMAL) POCT glucose (10/04/2021 10:57 AM CDT) GLUCOSE POC 142(H) 70 - 109 10/04/2021 11:32 AM CDT [facility] 10/04/2021 10:5 7 AM CDT us Jorge Guzman MD POCT ORDERABLES - DEVICE Sirena l Result Performing Organization Address [facility] Co de Phone Number [facility] [address] [place] [address], [place] [phone] * (ABNORMAL) POCT glucose (10/04/2021 5:48 AM CDT) Pathologist [facility] GLUCOSE POC 155(H) 70 - 109 10/04/2021 5:56 AM CDT [facility] Comment:RN Notified 10/04/2021 5:4 8 AM CDT us Jorge Guzman MD POCT ORDERABLES - DEVICE Sirena l Result [facility] [place] [address] [place] [address], [id number] * (ABNORMAL) CBC W/DIFF AUTOMATED (10/04/2021 3:45 AM CDT) Pathologist [facility] WBC 25.0(H) 4.0 - 10.8 x10'3/uL 10/04/2021 4:13 AM CDT [facility] RBC 3.52(L) 4.10 - 5.40 x10'6/uL 10/04/2021 4:13 AM CDT [facility] HGB 9.7(L) 12.0 - 16.0 G/DL 10/04/2021 4:13 AM CDT [facility] HCT 28.6(L) 36.0 - 47.0 % 10/04/2021 4:13 AM CDT [facility] MCV 81.3 78.0 - 100.0 FL 10/04/2021 4:13 AM CDT [facility] MCH 27.6 27.0 - 31.0 PG 10/04/2021 4:13 AM CDT [facility] MCHC 33.9 33.0 - 36.0 G/DL 10/04/2021 4:13 AM CDT [facility] RDW 18.2(H) 11.5 - 14.5 % 10/04/2021 4:13 AM CDT [facility] PLT 129(L) 150 - 350 x10'3/uL 10/04/2021 4:31 AM CDT [facility] MPV 10.8(H) 7.4 - 10.4 FL 10/04/2021 4:31 AM CDT [facility] ABS. NEUTROPHILS 18.25(H) 1.60 - 8.30 x10'3/uL 10/04/2021 4:33 AM CDT [facility] ABS. NEUTROPHILS CALCULATED 17.00(H) 1.60 - 7.30 x10'3/uL 10/04/2021 4:33 AM CDT [facility] BANDS 1.25(H) 0.00 - 1.00 x10'3/uL 10/04/2021 4:33 AM CDT [facility] ABS. LYMPHOCYTES 1.00 0.80 - 4.70 x10'3/uL 10/04/2021 4:33 AM CDT [facility] ABS. MONOCYTES 5.75(H) 0.00 - 1.50 x10'3/uL 10/04/2021 4:33 AM CDT [facility] ABS. EOSINOPHILS 0.00 0.00 - 0.40 x10'3/uL 10/04/2021 4:33 AM CDT [facility] ABS. BASOPHILS 0.00 0.00 - 0.20 x10'3/uL 10/04/2021 4:33 AM CDT [facility] ABS. NUCLEATED RBC'S 0.00 0.0 x10'3/uL 10/04/2021 4:33 AM CDT [facility] RBC MORPHOLOGY ANISOCYTOSIS 10/05/19 4:33 AM CDT [facility] Comment: SLIGHT POLYCHROMASIA SLIGHT POIKILOCYTOSIS SLIGHT OVALOCYTES [employer] CELLS DANTE CELLS PLT MORPH. LOW 10/04/2021 4:33 AM CDT [facility] 10/04/2021 3:45 AM CDT Jorge Guzman MD LABORATORY Final Result Performing Organization Address [facility]/ZIP Co de Phone Number [facility] [place] [facility] [address] [place] [address], [place] [phone] [id number] * (ABNORMAL) PHOSPHORUS, INORGANIC PHOSPHATE (10/04/2021 3:45 AM CDT) PHOSPHORUS 2.2(L) 2.5 - 4.9 MG/DL 10/04/2021 5:00 AM CDT [facility] 10/04/2021 3:45 AM CDT us Jorge Guzman MD LABORATORY Final Result Performing Organization Address [facility] Co de Phone Number [facility] [address] [place] [address], [place] [phone] * MAGNESIUM (10/04/2021 3:45 AM CDT) MAGNESIUM 2.1 1.6 - 2.6 MG/DL 10/04/2021 5:00 AM CDT [facility] 10/04/2021 3:45 AM CDT us Jorge Guzman MD LABORATORY Final Result Performing Organization Address [facility] Co de Phone Number [facility] [place] [address] [place] [address], [place] [phone] * (ABNORMAL) BASIC METABOLIC PANEL (10/04/2021 3:45 AM CDT) SODIUM S/P/B 136 136 - 145 MMOL/L 10/04/2021 5:00 AM CDT [facility] POTASSIUM S/P/B 3.3(L) 3.5 - 5.1 MMOL/L 10/04/2021 5:00 AM CDT [facility] CHLORIDE S/P/B 106 98 - 107 MMOL/L 10/04/2021 5:[address] [facility] CO2 27.3 21.0 - 32.0 MMOL/L 10/04/2021 5:[address] [facility] GLUCOSE 143(H) 74 - 106 MG/DL 10/04/2021 5:[address] [facility] BUN 13 7 - 18 MG/DL 10/04/2021 5:[address] [facility] CREATININE S/P/B 0.86 0.55 - 1.02 MG/DL 10/04/2021 5:[address] [facility] CALCIUM S/P/B 8.3(L) 8.5 - 10.1 MG/DL 10/04/2021 5:[address] [facility] ANION GAP 2.7(L) 5.0 - 15.0 MMOL/L 10/04/2021 5:[address] [facility] OSMOLALITY (CALC) 285 MOSM/KG 022 5:[address] [facility] Comment:REFERENCE RANGE NOT ESTABLISHED EGFR NON-AFR. AMER. 65(L) >90 ML/MIN/1. 73 M2 10/04/2021 5:[address] [facility] EGFR AFR. AMER. 76(L) >90 ML/MIN/1. 73 M2 10/04/2021 5:[address] [facility] GFR NOTES GFR REFERENCE S: 10/04/2021 5:[address] [facility] Comment: THE ESTIMATED GFR IS [...] MD LABORATORY Final Result Performing Organization Address [facility] Co de Phone Number [facility] [place] [address] [place] [address], [place] [phone] [phone] * (ABNORMAL) POCT glucose (10/03/2021 10:56 PM CDT) GLUCOSE POC 183(H) 70 - 109 10/03/2021 11:14 PM CDT [facility] Comment:RN Notified 10/03/2021 10:5 6 PM CDT us Jorge Guzman MD POCT ORDERABLES - DEVICE Sirena l Result Performing Organization Address [facility] de Phone Number [facility] [place] [address] [place] [address], [place] [phone] * (ABNORMAL) HEMOGLOBIN AND HEMATOCRIT (10/03/2021 9:03 PM CDT) [facility] HGB 10.5(L) 12.0 - 16.0 G/DL 10/03/2021 9:14 PM CDT [facility] HCT 30.8(L) 36.0 - 47.0 % 10/03/2021 9:14 PM CDT [facility] 10/03/2021 9:03 PM CDT us Jorge Gzuman MD LABORATORY Final Result Performing Organization Address [facility] Co de Phone Number [facility] [place] [address] [place] [address], [place] [phone] * TRANSFUSE PLATELET PHERESIS (10/03/2021 7:35 PM CDT) us Miley Mohan MD NURSING TREATMENT ORDERABLES - BLOOD ADMIN Edited Result - Final * TRANSFUSE PLATELET PHERESIS, 1 Units (10/03/2021 7:35 PM CDT) us Miley Mohan MD NURSING TREATMENT ORDERABLES - BLOOD ADMIN Edited Result - Final * (ABNORMAL) POCT glucose (10/03/2021 3:30 PM CDT) GLUCOSE POC 143(H) 70 - 109 10/03/2021 3:42 PM CDT [facility] 10/03/2021 3:30 PM CDT us Jorge Guzman MD POCT ORDERABLES - DEVICE Sirena l Result Performing Organization Address [facility] de Phone Number [facility] [place] [facility] [address] [place] [address], [id number] * (ABNORMAL) HEMOGLOBIN AND HEMATOCRIT (10/03/2021 3:17 PM CDT) HGB 11.1(L) 12.0 - 16.0 G/DL 10/03/2021 3:40 PM CDT [facility] HCT 32.2(L) 36.0 - 47.0 % 10/03/2021 3:40 PM CDT [facility] 10/03/2021 3:17 PM CDT us Jorge Guzman MD LABORATORY Final Result Performing Organization Address [facility] Co de Phone Number [facility] [place] [facility] [address] [place] [address], [phone] * XR ABD KUB (10/03/2021 12:26 PM [...] By: Ruth Orr MD, 10/03/2021 12:51 PM Jorge Guzman MD GENERAL IMAGING Final Result * (ABNORMAL) HEMOGLOBIN AND HEMATOCRIT (10/03/2021 11:06 AM CDT) HGB 10.9(L) 12.0 - 16.0 G/DL 10/03/2021 11:23 AM CDT [facility] Comment:RESULTS VERIFIED BY [place] SPECIMEN. HCT 32.1(L) 36.0 - 47.0 % 10/03/2021 11:23 AM CDT [facility] [place] 10/03/2021 11:0 6 AM CDT Jorge Guzman MD LABORATORY Final Result Performing Organization Address [facility] Co de Phone Number [facility] [place] [facility] [address] [place] [address], [place] [phone] * (ABNORMAL) POCT glucose (10/03/2021 10:31 AM CDT) [facility] GLUCOSE POC 175(H) 70 - 109 10/03/2021 10:56 AM CDT [facility] 10/03/2021 10:3 1 AM CDT Jorge Guzman MD POCT ORDERABLES - DEVICE Sirena l Result Performing Organization Address [facility] de Phone Number [facility] [place] [facility] [address] [place] [address], [place] [phone] * TRANSFUSE RED BLOOD CELLS (10/03/2021 8:18 AM CDT) Jordan Dennis MD NURSING TREATMENT ORDERABLES - [...] FRESH FROZEN PLASMA (10/03/2021 7:31 AM CDT) Luis Pina MD NURSING TREATMENT ORDERABLES - BLOOD ADMIN Edited Result - Final * TRANSFUSE RED BLOOD CELLS (10/03/2021 7:28 AM CDT) Jordan Dennis MD NURSING TREATMENT ORDERABLES - BLOOD ADMIN Edited Result - Final * (ABNORMAL) CBC W/DIFF AUTOMATED (10/03/2021 7:20 AM CDT) WBC 10.1 4.0 - 10.8 x10'3/uL 10/03/2021 8:30 AM CDT [facility] RBC 2.65(L) 4.10 - 5.40 x10'6/uL 10/03/2021 8:30 AM CDT [facility] HGB 7.4(L) 12.0 - 16.0 G/DL 10/03/2021 8:30 AM CDT [facility] HCT 22.5(L) 36.0 - 47.0 % 10/03/2021 8:30 AM CDT [facility] MCV 84.9 78.0 - 100.0 FL 10/03/2021 8:30 AM CDT [facility] MCH 27.9 27.0 - 31.0 PG 10/03/2021 8:30 AM CDT [facility] MCHC 32.9(L) 33.0 - 36.0 G/DL 10/03/2021 8:30 AM CDT [facility] RDW 17.7(H) 11.5 - 14.5 % 10/03/2021 8:30 AM CDT [facility] PLT 153 150 - 350 x10'3/uL 10/03/2021 8:30 AM CDT [facility] [place] MPV 10.9(H) 7.4 - 10.4 FL 10/03/2021 8:30 AM CDT [facility] ABS. NEUTROPHILS 6.67 1.60 - 8.30 x10'3/uL 10/03/2021 9:37 AM CDT [facility] [place] ABS. NEUTROPHILS CALCULATED 5.76 1.60 - 7.30 x10'3/uL 10/03/2021 9:37 AM CDT [facility] BANDS 0.91 0.00 - 1.00 x10'3/uL 10/03/2021 9:37 AM CDT [facility] [place] ABS. LYMPHOCYTES 0.51(L) 0.80 - 4.70 x10'3/uL 10/03/2021 9:37 AM CDT [facility] [place] ABS. MONOCYTES 2.93(H) 0.00 - 1.50 x10'3/uL 10/03/2021 9:37 AM CDT [facility] ABS. EOSINOPHILS 0.00 0.00 - 0.40 x10'3/uL 10/03/2021 9:37 AM CDT [facility] ABS. BASOPHILS 0.00 0.00 - 0.20 x10'3/uL 10/03/2021 9:37 AM CDT [facility] ABS. NUCLEATED RBC'S 0.00 0.0 x10'3/uL 10/03/2021 9:37 AM CDT [facility] [place] RBC MORPHOLOGY ANISOCYTOSIS 10/04/19 9:37 AM CDT [facility] Comment: SLIGHT POIKILOCYTOSIS SLIGHT OVALOCYTES ACANTHOCYTES DANET CELLS PLT MORPH. NORMAL 10/03/2021 9:37 AM CDT [facility] [place] 10/03/2021 7:20 AM CDT us Luis Pina MD LABORATORY Final Result [facility] [place] [facility] [address] [place] [address], [id number] * (ABNORMAL) POCT ACUTE ARTERIAL PANEL (10/03/2021 7:14 AM CDT) SODIUM WHOLE BLOOD 140 138 - 146 mmol/L 10/03/2021 10:01 AM CDT [facility] POTASSIUM WHOLE BLOOD 4.4 3.5 - 4.9 mmol/L 10/03/2021 10:01 AM CDT [facility] CA IONIZED WH BLOOD 1.03(L) 1.12 - 1.32 mmol/L 10/03/2021 10:01 AM CDT [facility] POC PH ARTERIAL 7.420 7.35 - 7.45 10/03/2021 10:01 AM CDT [facility] POC PCO2 ARTERIAL 35.4 35.0 - 45.0 MMHG 10/03/2021 10:01 AM CDT [facility] POC PO2 ARTERIAL 291(H) 80 - 105 MMHG 10/03/2021 10:01 AM CDT [facility] POC HCO3 ARTERIAL 23.0 22 - 26 MMOL/L 10/03/2021 10:01 AM CDT [facility] POC TCO2 ARTERIAL 24 23 - 27 MMOL/L 10/03/2021 10:01 AM CDT [facility] [place] POC BASE DEFICIT ARTERIAL 2 0 - 2 MMOL/L 10/03/2021 10:01 AM CDT [facility] POC HEMATOCRIT 17(L) 38 - 51 % 10/03/2021 10:01 AM CDT [facility] TIME TEST WAS PERFORMED: 714 10/03/2021 10:01 AM CDT [facility] 10/03/2021 7:14 AM CDT us Jorge Guzman MD POCT ORDERABLES - DEVICE Sirena l Result [facility] [place] [facility] [address] [place] [address], [id number] * TRANSFUSE RED BLOOD CELLS (10/03/2021 6:45 AM CDT) Jordan Dennis MD NURSING TREATMENT ORDERABLES - BLOOD ADMIN Edited Result - Final * ORDER FRESH FROZEN PLASMA, 2 Units (10/03/2021 6:45 AM CDT) UNITS ORDERED 2 10/03/2021 6:46 AM CDT [facility] [place] BLOOD UNIT NUMBER [id number] 10/03/2021 6:50 AM CDT [facility] [place] PRODUCT: THAWED PLASMA 10/03/2021 6:50 AM CDT [facility] [place] UNIT DIVISION 00 10/03/2021 6:50 AM CDT [facility] [place] BLOOD UNIT STATUS TRANSFUSED,FINAL 10/04/2021 12:40 AM CDT [facility] ISSUE DATE/TIME 12:40 AM CDT [facility] [place] PRODUCT CODE [id number] 10/04/2021 12:40 AM CDT [facility] ABO/RH Unit A POS 10/04/2021 12:40 AM CDT [facility] ABO/RH UNIT ISBT CODE 6200 10/04/2021 12:40 AM CDT [facility] BLOOD UNIT EXPIRATION DATE 10/04/2021 12:40 AM CDT [facility] TRANSFUSION STATUS OK TO TRANSFUSE 10/03/2021 6:50 AM CDT [facility] BLOOD UNIT NUMBER [id number] 10/03/2021 6:50 AM CDT [facility] PRODUCT: THAWED PLASMA BAG 3 10/03/2021 6:50 AM CDT [facility] [place] UNIT DIVISION 00 10/03/2021 6:50 AM CDT [facility] [place] BLOOD UNIT STATUS TRANSFUSED,FINAL 10/04/2021 12:40 AM CDT [facility] ISSUE DATE/TIME [id number] 12:40 AM CDT [facility] [place] PRODUCT CODE [id number] 10/04/2021 12:40 AM CDT [facility] [place] ABO/RH Unit AB POS 10/04/2021 12:40 AM CDT [facility] ABO/RH UNIT ISBT CODE 8400 10/04/2021 12:40 AM CDT [facility] BLOOD UNIT EXPIRATION DATE [id number] 10/04/2021 12:40 AM CDT [facility] TRANSFUSION STATUS OK TO TRANSFUSE 10/03/2021 6:50 AM CDT [facility] [place] 10/03/2021 6:45 AM CDT us Luis Pina MD BLOOD BANK PRODUCT ORDERABLE S Final Result [facility] [place] [facility] [address] [place] [address], [id number] * (ABNORMAL) POCT ACUTE ARTERIAL PANEL (10/03/2021 6:35 AM CDT) SODIUM WHOLE BLOOD 141 138 - 146 mmol/L 10/03/2021 10:01 AM CDT [facility] [place] POTASSIUM WHOLE BLOOD 4.3 3.5 - 4.9 mmol/L 10/03/2021 10:01 AM CDT [facility] [place] CA IONIZED WH BLOOD 1.07(L) 1.12 - 1.32 mmol/L 10/03/2021 10:01 AM CDT [facility] POC PH ARTERIAL 7.446 7.35 - 7.45 10/03/2021 10:01 AM CDT [facility] [place] POC PCO2 ARTERIAL 33.3(L) 35.0 - 45.0 MMHG 10/03/2021 10:01 AM CDT [facility] [place] POC PO2 ARTERIAL 258(H) 80 - 105 MMHG 10/03/2021 10:01 AM CDT [facility] [place] POC HCO3 ARTERIAL 22.9 22 - 26 MMOL/L 10/03/2021 10:01 AM CDT [facility] [place] POC TCO2 ARTERIAL 24 23 - 27 MMOL/L 10/03/2021 10:01 AM CDT [facility] [place] POC BASE DEFICIT ARTERIAL 1 0 - 2 MMOL/L 10/03/2021 10:01 AM CDT [facility] [place] POC HEMATOCRIT 17(L) 38 - 51 % 10/03/2021 10:01 AM CDT [facility] [place] TIME TEST WAS PERFORMED: 635 10/03/2021 10:01 AM CDT [facility] [place] 10/03/2021 6:35 AM CDT us Jorge Guzman MD POCT ORDERABLES - DEVICE Sirena l Result Performing Organization Address City/[facility]/ZIP Co de Phone Number [facility] [place] [facility] [address] [place] [address], [place] [phone] * (ABNORMAL) POCT glucose (10/03/2021 6:29 AM CDT) GLUCOSE POC 146(H) 70 - 109 10/03/2021 10:01 AM CDT [facility] [place] 10/03/2021 6:29 AM CDT us Jorge Guzman MD POCT ORDERABLES - DEVICE Sirena l Result Performing Organization Address City/[facility]/ZIP Co de Phone Number [facility] [place] [facility] [address] [place] [address], [place] [phone] * HEMOGLOBIN, GLYCOSYLATED (10/03/2021 5:12 AM CDT) HGB A1C 5.6 <5.7 % 10/03/2021 6:20 AM CDT [facility] [place] ESTIMATED AVG GLUCOSE 114 74 - 114 MG/DL 10/03/2021 6:20 AM CDT [facility] [place] 10/03/2021 5:12 AM CDT us Diana DOS SANTOS LABORAT[facility] Final Result Performing Organization Address [facility] de Phone Number [facility] [place] [facility] [address] [place] [address], [id number] * (ABNORMAL) PROTHROMBIN TIME, VENOUS (10/03/2021 5:12 AM CDT) PROTIME 15.0(H) 10.2 - 12.9 SEC 10/03/2021 5:49 AM CDT [facility] INR 1.3(H) 0.9 - 1.1 10/03/2021 5:49 AM CDT [facility] [place] 10/03/2021 5:12 AM CDT us Diana DOS [facility] Final Result Performing Organization Address [facility] de Phone Number [facility] [place] [facility] [address] [place] [address], [id number] * PHOSPHORUS, INORGANIC PHOSPHATE (10/03/2021 5:12 AM CDT) PHOSPHORUS 3.5 2.5 - 4.9 MG/DL 10/03/2021 6:07 AM CDT [facility] [place] 10/03/2021 5:12 AM CDT us Diana DOS [facility] Final Result Performing Organization Address [facility] de Phone Number [facility] [place] [facility] [address] [place] [address], [id number] * (ABNORMAL) LACTIC ACID (10/03/2021 5:12 AM CDT) LACTIC ACID VENOUS 2.4(H) 0.4 - 2.0 MMOL/L 10/03/2021 5:56 AM CDT [facility] Comment: AN ORDER FOR A REPEAT LACTIC ACID TEST IS REQUIRED WITHIN 6 HOURS OF DIAGNOSIS ON A PATIENT WITH SEVERE SEPSIS. 10/03/2021 5:12 AM CDT Diana Jones Sanjay [facility] Final Result Performing Organization Address [facility] Co de Phone Number [facility] [place] [facility] [address] [place] [address], [place] [phone] * MAGNESIUM (10/03/2021 5:12 AM CDT) MAGNESIUM 2.5 1.6 - 2.6 MG/DL 10/03/2021 6:07 AM CDT [facility] [place] 10/03/2021 5:12 AM CDT us Diana DOS [facility] Final Result Performing Organization Address [facility] de Phone Number [facility] [place] [facility] [address] [place] [address], [place] [phone] * (ABNORMAL) COMPREHENSIVE METABOLIC PANEL (10/03/2021 5:12 AM CDT) SODIUM S/P/B 138 136 - 145 MMOL/L 10/03/2021 6:07 AM CDT [facility] [place] POTASSIUM S/P/B 4.5 3.5 - 5.1 MMOL/L 10/03/2021 6:07 AM CDT [facility] CHLORIDE S/P/B 110(H) 98 - 107 MMOL/L 10/03/2021 6:07 AM CDT [facility] CO2 21.1 21.0 - 32.0 MMOL/L 10/03/2021 6:07 AM CDT [facility] [place] GLUCOSE 156(H) 74 - 106 MG/DL 10/03/2021 6:07 AM CDT [facility] BUN 25(H) 7 - 18 MG/DL 10/03/2021 6:07 AM CDT [facility] [place] CREATININE S/P/B 0.93 0.55 - 1.02 MG/DL 10/03/2021 6:07 AM T [facility] [place] CALCIUM S/P/B 8.2(L) 8.5 - 10.1 MG/DL 10/03/2021 6:[address] [facility] BILIRUBIN TOTAL S/P/B 0.9 0.2 - 1.0 MG/DL 10/03/2021 6:07 AM T [facility] [place] ALKALINE PHOSPHATASE S/P/B 65 55 - 142 U/L 10/03/2021 6:[address] [facility] AST 16 15 - 37 U/L 10/03/2021 6:07 AM T [facility] [place] ALT 21 13 - 56 U/L 10/03/2021 6:[address] [facility] TOTAL PROTEIN S/P/B 6.3(L) 6.4 - 8.2 G/DL 10/03/2021 6:[address] [facility] ALBUMIN S/P/B 3.2(L) 3.4 - 5.0 G/DL 10/03/2021 6:[address] [facility] ANION GAP 6.9 5.0 - 15.0 MMOL/L 10/03/2021 6:[address] [facility] OSMOLALITY (CALC) 294 MOSM/KG 022 6:[address] [facility] Comment:REFERENCE RANGE NOT ESTABLISHED EGFR NON-AFR. AMER. 59(L) >90 ML/MIN/1. 73 M2 10/03/2021 6:[address] [facility] EGFR AFR. AMER. 69(L) >90 ML/MIN/1. 73 M2 10/03/2021 6:[address] [facility] GFR NOTES GFR REFERENCE S: 10/03/2021 6:[address] [facility] Comment: THE ESTIMATED GFR IS [...] us Diana [facility] Final Result [facility] [place] [facility] [address] [place] [address], [place] [phone] * (ABNORMAL) CBC, AUTO, NO DIFF (10/03/2021 5:12 AM CDT) WBC 9.6 4.0 - 10.8 x10'3/uL 10/03/2021 6:03 AM CDT [facility] RBC 2.97(L) 4.10 - 5.40 x10'6/uL 10/03/2021 6:03 AM CDT [facility] [place] HGB 8.5(L) 12.0 - 16.0 G/DL 10/03/2021 6:03 AM CDT [facility] HCT 25.7(L) 36.0 - 47.0 % 10/03/2021 6:03 AM CDT [facility] [place] MCV 86.5 78.0 - 100.0 FL 10/03/2021 6:03 AM CDT [facility] MCH 28.6 27.0 - 31.0 PG 10/03/2021 6:03 AM CDT [facility] MCHC 33.1 33.0 - 36.0 G/DL 10/03/2021 6:03 AM CDT [facility] RDW 15.4(H) 11.5 - 14.5 % 10/03/2021 6:03 AM CDT [facility] [place] PLT 158 150 - 350 x10'3/uL 10/03/2021 6:03 AM CDT [facility] MPV 10.8(H) 7.4 - 10.4 FL 10/03/2021 6:03 AM CDT [facility] 10/03/2021 5:12 AM CDT us Reji Lim MD LABORATORY Final Result [facility] [place] [facility] [address] [place] [address], [id number] * ORDER PLATELET PHERESIS (10/03/2021 3:37 AM CDT) UNITS ORDERED 1 10/03/2021 3:44 AM CDT [facility] BLOOD UNIT NUMBER [id number] 10/03/2021 3:45 AM CDT [facility] [place] PRODUCT: PLT PHERESIS LEUKORED 7D 10/03/2021 3:45 AM CDT [facility] [place] UNIT DIVISION 00 10/03/2021 3:45 AM CDT [facility] BLOOD UNIT STATUS TRANSFUSED,FINAL 10/04/2021 12:40 AM CDT [facility] [place] ISSUE DATE/TIME [id number] 022 12:40 AM CDT [facility] [place] PRODUCT CODE [id number] 10/04/2021 12:40 AM CDT [facility] ABO/RH Unit O POS 10/04/2021 12:40 AM CDT [facility] ABO/RH UNIT ISBT CODE 5100 10/04/2021 12:40 AM CDT [facility] BLOOD UNIT EXPIRATION DATE [id number] 10/04/2021 12:40 AM CDT [facility] [place] TRANSFUSION STATUS OK TO TRANSFUSE 10/03/2021 3:45 AM CDT [facility] 10/03/2021 3:37 AM CDT Miley Mohan MD BLOOD BANK PRODUCT ORDERABLE S Final Result Performing Organization Address [facility] de Phone Number [facility] [address] [place] [address], [id number] * PARTIAL THROMBOPLASTIN TIME,PTT (10/03/2021 2:08 AM CDT) PTT 32.9 25.1 - 36.5 SEC 10/03/2021 2:45 AM CDT [facility] 10/03/2021 2:08 AM CDT Melanie Sam MD LABORATORY Final Result Performing Organization Address [facility] de Phone Number [facility] [place] [address] [place] [address], [id number] * (ABNORMAL) PROTIME/INR, VENOUS (PROTHROMBIN TIME) (10/03/2021 2:08 AM CDT) PROTIME 14.9(H) 10.2 - 12.9 SEC 10/03/2021 2:42 AM CDT [facility] INR 1.3(H) 0.9 - 1.1 10/03/2021 2:42 AM CDT [facility] 10/03/2021 2:08 AM CDT Melanie Sam MD LABORATORY Final Result Performing Organization Address [facility] Co de Phone Number [facility] [place] [facility] [address] [place] [address], [phone] * TYPE & SCREEN (10/03/2021 2:08 AM CDT) UNITS ORDERED 3 10/03/2021 5:29 AM CDT [facility] ABO/RH O POSITIVE 10/03/2021 3:08 AM CDT [facility] ANTIBODY SCREEN NEGATIVE 3:08 AM CDT [facility] SAMPLE EXPIRATION 10/06/2021,2359 10/03/2021 2:22 AM CDT [facility] [place] BLOOD UNIT NUMBER [id number] 10/03/2021 5:34 AM CDT [facility] PRODUCT: PC LEUKOPOOR 10/03/2021 5:34 AM CDT [facility] [place] UNIT DIVISION 00 10/03/2021 5:34 AM CDT [facility] [place] BLOOD UNIT STATUS TRANSFUSED,FINAL 10/04/2021 12:40 AM CDT [facility] [place] ISSUE DATE/TIME [id number] 022 12:40 AM CDT [facility] [place] PRODUCT CODE [id number] 10/04/2021 12:40 AM CDT [facility] ABO/RH Unit O POS 10/04/2021 12:40 AM CDT [facility] [place] ABO/RH UNIT ISBT CODE 5100 10/04/2021 12:40 AM CDT [facility] [place] BLOOD UNIT EXPIRATION DATE [id number] 10/04/2021 12:40 AM CDT [facility] [place] TRANSFUSION STATUS OK TO TRANSFUSE 10/03/2021 5:34 AM CDT [facility] [place] CROSSMATCH COMPATIBLE-EXM 10/03/2021 5:34 AM CDT [facility] [place] BLOOD UNIT NUMBER [id number] 10/03/2021 5:34 AM CDT [facility] [place] PRODUCT: PC LEUKOPOOR 10/03/2021 5:34 AM CDT [facility] [place] [facility] UNIT DIVISION 00 10/03/2021 5:34 AM CDT [facility] [place] BLOOD UNIT STATUS TRANSFUSED,FINAL 10/04/2021 12:40 AM CDT [facility] [place] ISSUE DATE/TIME [id number] 12:40 AM CDT [facility] [place] PRODUCT CODE [id number] 10/04/2021 12:40 AM CDT [facility] [place] ABO/RH Unit O POS 10/04/2021 12:40 AM CDT [facility] [place] ABO/RH UNIT ISBT CODE 5100 10/04/2021 12:40 AM CDT [facility] [place] BLOOD UNIT EXPIRATION DATE [id number] 10/04/2021 12:40 AM CDT [facility] [place] TRANSFUSION STATUS OK TO TRANSFUSE 10/03/2021 5:34 AM CDT [facility] [place] CROSSMATCH COMPATIBLE-EXM 10/03/2021 5:34 AM CDT [facility] [place] BLOOD UNIT NUMBER [id number] 10/03/2021 5:34 AM CDT [facility] [place] PRODUCT: PC LEUKO PHERE BAG2 10/03/2021 5:34 AM CDT [facility] [place] UNIT DIVISION 00 10/03/2021 5:34 AM CDT [facility] [place] BLOOD UNIT STATUS TRANSFUSED,FINAL 10/04/2021 12:40 AM CDT [facility] [place] ISSUE DATE/TIME [id number] 12:40 AM CDT [facility] [place] PRODUCT CODE [id number] 10/04/2021 12:40 AM CDT [facility] [place] ABO/RH Unit O POS 10/04/2021 12:40 AM CDT [facility] [place] ABO/RH UNIT ISBT CODE 5100 10/04/2021 12:40 AM CDT [facility] [place] BLOOD UNIT EXPIRATION DATE [id number] 10/04/2021 12:40 AM CDT [facility] [place] TRANSFUSION STATUS OK TO TRANSFUSE 10/03/2021 5:34 AM CDT [facility] [place] CROSSMATCH COMPATIBLE-EXM 10/03/2021 5:34 AM CDT [facility] [place] 10/03/2021 2:08 AM CDT us Melanie Sam MD BLOOD BANK TEST ORDERABLES Sirena l Result Performing Organization Address City/[facility]/ZIP Co de Phone Number [facility] [place] [address] [place] [address], [phone] * LIPASE (10/03/2021 2:08 AM CDT) LIPASE 95 73 - 393 UNITS/L 10/03/2021 3:06 AM CDT [facility] [place] 10/03/2021 2:08 AM CDT us Melanie Sam MD LABORATORY Final Result Performing Organization Address [facility] Co de Phone Number [facility] [place] [address] [place] [address], [place] [phone] * LACTIC ACID (10/03/2021 2:08 AM CDT) LACTIC ACID VENOUS 1.6 0.4 - 2.0 MMOL/L 10/03/2021 2:39 AM CDT [facility] [place] 10/03/2021 2:08 AM CDT us Melanie Sam MD LABORATORY Final Result Performing Organization Address [facility] Co de Phone Number [facility] [place] [address] [place] [address], [place] [phone] * (ABNORMAL) COMPREHENSIVE METABOLIC PANEL (10/03/2021 2:08 AM CDT) SODIUM S/P/B 139 136 - 145 MMOL/L 10/03/2021 3:06 AM T [facility] POTASSIUM S/P/B 4.3 3.5 - 5.1 MMOL/L 10/03/2021 3:06 AM T [facility] [place] CHLORIDE S/P/B 111(H) 98 - 107 MMOL/L 10/03/2021 3:06 AM T [facility] [place] CO2 22.0 21.0 - 32.0 MMOL/L 10/03/2021 3:06 AM T [facility] [place] GLUCOSE 159(H) 74 - 106 MG/DL 10/03/2021 3:06 AM T [facility] [place] BUN 23(H) 7 - 18 MG/DL 10/03/2021 3:06 AM T [facility] [place] CREATININE S/P/B 0.85 0.55 - 1.02 MG/DL 10/03/2021 3:06 AM T [facility] [place] CALCIUM S/P/B 8.2(L) 8.5 - 10.1 MG/DL 10/03/2021 3:06 AM T [facility] [place] BILIRUBIN TOTAL S/P/B 0.8 0.2 - 1.0 MG/DL 10/03/2021 3:06 AM T [facility] [place] ALKALINE PHOSPHATASE S/P/B 60 55 - 142 U/L 10/03/2021 3:06 AM T [facility] AST 13(L) 15 - 37 U/L 10/03/2021 3:06 AM T [facility] [place] ALT 16 13 - 56 U/L 10/03/2021 3:06 AM T [facility] [place] TOTAL PROTEIN S/P/B 5.7(L) 6.4 - 8.2 G/DL 10/03/2021 3:06 AM T [facility] ALBUMIN S/P/B 3.0(L) 3.4 - 5.0 G/DL 10/03/2021 3:06 AM CDT [facility] [place] ANION GAP 6.0 5.0 - 15.0 MMOL/L 10/03/2021 3:06 AM CDT [facility] [place] OSMOLALITY (CALC) 295 MOSM/KG 022 3:06 AM CDT [facility] Comment:REFERENCE RANGE NOT ESTABLISHED EGFR NON-AFR. AMER. 66(L) >90 ML/MIN/1. 73 M2 10/03/2021 3:06 AM CDT [facility] EGFR AFR. AMER. 77(L) >90 ML/MIN/1. 73 M2 10/03/2021 3:06 AM CDT [facility] GFR NOTES GFR REFERENCE S: 10/03/2021 3:06 AM CDT [facility] Comment: THE ESTIMATED GFR IS CALCULATED [...] <15 ml/min/1.73 m2 10/03/2021 2:08 AM CDT us Melanie Sam MD LABORATORY Final Result [facility] [place] [address] [place] [address], [phone] * (ABNORMAL) CBC W/DIFF AUTOMATED (10/03/2021 2:08 AM CDT) WBC 6.2 4.0 - 10.8 x10'3/uL 10/03/2021 2:28 AM CDT [facility] RBC 2.72(L) 4.10 - 5.40 x10'6/uL 10/03/2021 2:28 AM CDT [facility] HGB 7.7(L) 12.0 - 16.0 G/DL 10/03/2021 2:28 AM CDT [facility] HCT 23.6(L) 36.0 - 47.0 % 10/03/2021 2:28 AM CDT [facility] MCV 86.8 78.0 - 100.0 FL 10/03/2021 2:28 AM CDT [facility] MCH 28.3 27.0 - 31.0 PG 10/03/2021 2:28 AM CDT [facility] MCHC 32.6(L) 33.0 - 36.0 G/DL 10/03/2021 2:28 AM CDT [facility] [place] RDW 15.7(H) 11.5 - 14.5 % 10/03/2021 2:28 AM CDT [facility] PLT 92(L) 150 - 350 x10'3/uL 10/03/2021 2:42 AM CDT [facility] [place] MPV 10.8(H) 7.4 - 10.4 FL 10/03/2021 2:42 AM CDT [facility] [place] ABS. NEUTROPHILS 3.58 1.60 - 8.30 x10'3/uL 10/03/2021 2:28 AM CDT [facility] [place] ABS. LYMPHOCYTES 0.83 0.80 - 4.70 x10'3/uL 10/03/2021 2:28 AM CDT [facility] [place] ABS. MONOCYTES 1.67(H) 0.00 - 1.50 x10'3/uL 10/03/2021 2:28 AM CDT [facility] [place] ABS. EOSINOPHILS 0.01 0.00 - 0.40 x10'3/uL 10/03/2021 2:28 AM CDT [facility] ABS. BASOPHILS 0.01 0.00 - 0.20 x10'3/uL 10/03/2021 2:28 AM CDT [facility] [place] ABS. IMMATURE GRANULOCYTES 0.09(H) 0.00 - 0.03 x10'3/uL 10/03/2021 2:28 AM CDT [facility] ABS. NUCLEATED RBC'S 0.00 0.0 x10'3/uL 10/03/2021 2:28 AM CDT [facility] [place] 10/03/2021 2:08 AM CDT Melanie Sam MD LABORATORY Final Result [facility] [address] [place] [address], [phone] * BIOFIRE PCR UPPER RESPIRATORY PROFILE (RESPIRATORY PCR PANEL 2) (10/03/2021 1:44 AM CDT) Pathologist [facility] ADENOVIRUS PCR (RESP) NOT DETECTED NOT DETECTED 10/03/2021 3:46 AM CDT [facility] CORONAVIRUS 229E PCR (RESP) NOT DETECTED NOT DETECTED 10/03/2021 3:46 AM CDT [facility] CORONAVIRUS HKU1 PCR (RESP) NOT DETECTED NOT DETECTED 10/03/2021 3:46 AM CDT [facility] CORONAVIRUS NL63 PCR (RESP) NOT DETECTED NOT DETECTED 10/03/2021 3:46 AM CDT [facility] CORONAVIRUS OC43 PCR (RESP) NOT DETECTED NOT DETECTED 10/03/2021 3:46 AM CDT [facility] METAPNEUMOVIRUS PCR (RESP) NOT DETECTED NOT DETECTED 10/03/2021 3:46 AM CDT [facility] RHINOVIRUS/ENTEROV IRUS PCR (RESP) NOT DETECTED NOT DETECTED 10/03/2021 3:46 AM CDT [facility] [place] INFLUENZA A PCR (RESP) NOT DETECTED NOT DETECTED 10/03/2021 3:46 AM CDT [facility] INFLUENZA B PCR (RESP) NOT DETECTED NOT DETECTED 10/03/2021 3:46 AM CDT [facility] PARAINFLUENZA 1 PCR (RESP) NOT DETECTED NOT DETECTED 10/03/2021 3:46 AM CDT [facility] PARAINFLUENZA 2 PCR (RESP) NOT DETECTED NOT DETECTED 10/03/2021 3:46 AM CDT [facility] PARAINFLUENZA 3 PCR (RESP) NOT DETECTED NOT DETECTED 10/03/2021 3:46 AM CDT [facility] [place] PARAINFLUENZA 4 PCR (RESP) NOT DETECTED NOT DETECTED 10/03/2021 3:46 AM CDT [facility] RSV PCR (RESP) NOT DETECTED NOT DETECTED 10/03/2021 3:46 AM CDT [facility] B PARAPERTUSIS PCR (RESP) NOT DETECTED NOT DETECTED 10/03/2021 3:46 AM CDT [facility] [place] BORDETELLA PERTUSSIS PCR (RESP) NOT DETECTED NOT DETECTED 10/03/2021 3:46 AM CDT [facility] CHLAMYDOPHILA PNEUMONIAE PCR (RESP) NOT DETECTED NOT DETECTED 10/03/2021 3:46 AM CDT [facility] MYCOPLASMA PNEUMONIAE PCR (RESP) NOT DETECTED NOT DETECTED 10/03/2021 3:46 AM CDT [facility] CORONAVIRUS SARS COV 2 PCR (RESP) NOT DETECTED NOT DETECTED 10/03/2021 3:46 AM CDT [facility] FIRST TEST YES 10/03/2021 1:43 AM CDT [facility] EMPLOYED IN HEALTHCARE NO 10/03/2021 1:43 AM CDT [facility] SYMPTOMATIC DEFINED BY CDC NO 10/03/2021 1:43 AM CDT [facility] HOSPITALIZATION STATUS NO 10/03/2021 1:43 AM CDT [facility] PATIENT IN ICU UNKNOWN 10/03/2021 1:56 AM CDT [facility] NO 10/03/2021 1:43 AM CDT [facility] NASOPHARYNGEAL SWAB / Unknown 10/03/2021 1:44 AM CDT Miley Mohan MD MICROBIOLOGY - GENERAL ORDER [place] Final Result [facility] [place] [address] [place] [address], [id number] * Pathology (10/03/2021 12:00 AM CDT) PATHOLOGY [facility] ? Department of Laboratory Medicine ?[address] ?[place] [address] ? , extension [phone] ? Pathology Report ? Surgical Pathology Report Name: MARTINEZ ZEE Nguyen ? Specimen #: [id number] Age: 1 1945 (Age: 76) ?Location: [id number] Sex: F ?Procedure Date: 10/03/2021 Hospital #: [id number] ?Date Received: 10/03/2021 Date Reported: 10/04/2021 Provider: LUIS PINA MD ?KANU WILCOX MD ?NILS CABRALES MD ?MICHA VALDES MD Source: Spleen Clinical History: Spleen trauma Gross Description: Received is a specimen labeled spleen which is multiple fragments of splenic tissue and clot which aggregates approximately 20 x 15 x 6 cm. ??The overall specimen weighs 850 grams. ??Most of the tissue is clot though intermixed splenic tissue is present. ??The splenic tissue weighs approximately 40 grams. Shrimp Cleaner splenic tissue is placed into cassettes 1 and 2 and a random section of clot material is placed into cassettes 3. Gross examination (when applicable), was performed at [facility], [address] [place], [place], [address]. This case was interpreted and signed out at [facility], [address] [place], [place], [facility]. FINAL DIAGNOSIS: SPLEEN, SPLENECTOMY: ? - FRAGMENTS OF BENIGN APPEARING SPLENIC TISSUE AND ORGANIZING BLOOD CLOT. Electronically Signed Out ? Maira Gordon M.D. [facility] Tissue specimen (specimen) SPLENIC STRUCTURE / Unknown 10/03/2021 7:48 AM CDT us Luis Pina MD PATHOLOGY/CYTOLOGY ORDERABLE S Final Result [facility] [address] [place] [address], [phone] * ECG 12 lead (10/03/2021 12:00 AM CDT) 10/03/2021 Narrative [facility] - 10/03/2021 5:57 PM CDT ?SJS-ED ? Test Date: ?2021-10-03 Pat Name: ? ZEESTEPHANE MARTINEZ ? Department: ?? 70 ? Room: ? ICUA11 Gender: ? Female ? 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 Tamika SCHWAB: ?1945 ? Requested By: DIANA CLOUD Order Number: [id number] ? Reading : ?? Sussy Rodriguez ? Measurements Intervals ?[place] ? Rate: ? 81 ? P: ?66 PA: ? 136 ?QRS: ?19 QRSD: ? 73 ? T: ?46 QT: ? 385 ? QTc: ?449 ? 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 Test Date: ?2021-10-03 Pat Name: ? ZEE MARTINEZ ? Department: ?? 70 ? Room: ? ICUA11 Gender: ? Female ? 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 B SYEDA : ?1945 ? Requested By: MILEY MOHAN Order Number: [id number] ? Reading MD: ?? Sussy Rodriguez ? Measurements Intervals ?[place] ? Rate: ? 82 ? P: ?73 PA: ? 147 ?QRS: ?25 QRSD: ? 74 ? T: ?49 QT: ? 385 ? QTc: ?450 ? 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 LANDA : 1945 Requested By: MILEY MOHAN Order Number: [id number] Ashley MD: Sussy Rodriguez Measurements Intervals [place] Rate: 82 P: 73 PA: 147 QRS: 25 QRSD: 74 T: 49 QT: 385 QTc: 450 Interpretive Statements SINUS RHYTHM Compared to ECG 10/02/2021 19:31:34 Sinus arrhythmia no longer present us Miley Mohan MD ECG ORDERABLES Edited Resul t - Final [facility] documented in this encounter Visit Diagnoses Diagnosis Spontaneous rupture of spleen- Primary Other diseases of spleen Splenic laceration Other spleen injury without mention of open wound into cavity HTN (hypertension) Unspecified essential hypertension Myasthenia gravis ([facility]/HCC) Myasthenia gravis without exacerbation Paroxysmal atrial fibrillation ([facility] HHS/HCC) Atrial fibrillation documented in this encounter Admitting Diagnoses Diagnosis Spontaneous rupture of spleen Other diseases of spleen documented in this encounter Administered Medications Inactive Administered Medications - up to 3 most recent administrations Medication Order MAR Action Action Date Dose Rate Site acetaminophen (TYLENOL) 160 MG/5ML solution 650 mg 650 mg, Tube, Every 4 hours PRN, Mild pain (Scale 1 - 3), Starting on 10/03/21 at 1219, Until Sun10/07/21 at 0848, Give if unable to swallow tablets/capsules or if patient prefers liquid. Maximum dose of acetaminophen is 4000 mg from all sources in 24 hours. Given 10/05/2021 11:44 AM CDT 650 mg Given 10/03/2021 10:58 PM CDT 650 mg acetaminophen (TYLENOL) tablet 650 mg 650 mg, Tube, Every 4 hours PRN, Mild pain (Scale 1 - 3), Starting on 10/03/21 at 1219, Until 10/10/21 at 1325, Maximum dose of [...] hours. Given 10/09/2021 8:41 PM CDT 2 tabl ets Given 10/09/2021 9:45 AM CDT 2 tablets [...] 81 mg, Oral, Daily, First dose on [facility] 10/08/21 at 1515, Until Discontinued, Do not [...] Given 10/03/2021 10:57 PM CDT 1 spray carvedilol (COREG) tablet 12.5 mg 12.5 mg, Tube, 2 times daily, First dose (after last modification) on Sun10/06/21 at 2100, Until Discontinued, Take with meal or snack Hold if HR <60 or SBP < 100 Given 10/10/2021 8:19 AM CDT 12.5 mg Given 10/09/2021 8:41 PM CDT 12.5 mg Given 10/09/2021 9:40 AM CDT 12.5 mg carvedilol (COREG) tablet 6.25 mg 6.25 mg, Tube, Once, 1 dose, On Sun10/04/21 at 1600, Take with meal or snack Hold if HR <60 or SBP < 100 Given 10/04/2021 3:59 PM CDT 6.25 mg carvedilol (COREG) tablet 6.25 mg 6.25 mg, Tube, 2 times daily, First dose (after last reorder) on Sun10/04/21 at 2100, Until Discontinued, Take with meal or snack Hold if HR <60 or SBP < 100 Given 10/06/2021 8:30 AM CDT 6.25 mg Given 10/05/2021 8:51 PM CDT 6.25 mg Given 10/05/2021 8:23 AM CDT 6.25 mg carvedilol (COREG) tablet 6.25 mg 6.25 mg, Oral, Once, 1 dose, On Nadine 10/06/21 at 0915, Take with meal or snack Given 10/06/2021 9:09 AM CDT 6.25 mg ceFEPIme (MAXIPIME) 2 g in sodium chloride (PF) 0.9 % 10 mL IV 2 g, Intravenous, Administer over 5 Minutes, Every 12 hours, First dose on Sun10/05/21 at 0715, Until Discontinued Given 10/07/2021 8:32 AM CDT 2 g 120 mL/hr Given 10/06/2021 7:51 PM CDT 2 g 120 mL/hr Given 10/06/2021 8:30 AM CDT 2 g 120 mL/hr clevidipine (CLEVIPREX) 50 MG/100ML infusion 1-21 mg/hr (2-42 mL/hr), Intravenous, Continuous, Starting on Sun10/03/21 at 1545, Until Nadine 10/06/21 at 0859, INITIAL RATE: 1 mg/hr TITRATE BY: Double drip rate every 90 seconds. Once BP approaches goal, slow titration rate to 1 mg/hr every 5 minutes GOAL: MAP less than 85 mmHg MAXIMUM RATE: 21 mg/hr WEAN BY: 5 mg/hr every 5 minutes NOTIFY PROVIDER when rate reaches 16 mg/hr. NOTIFY PROVIDER if SBP less than 100 mmHg or HR less than 60 bpm - RAPIDLY WEAN DRIP RATE. SPECIAL INSTRUCTIONS: - Product expires 12 hours after vial is punctured; discard vial and tubing after 12 hours. - Monitor patient for rebound hypertension for at least 8 hours after discontinuation of infusion. - CONTRAINDICATED if patient is allergic to soy products or egg products or if patient has complications of hypertriglyceridemia (i.e. acute pancreatitis) or severe aortic stenosis. Patient must be on a cardiac cath tech. Rate/Dose Change 10/06/2021 7:30 AM CDT 3 mg/hr 6 mL/hr New Bag 10/05/2021 11:13 PM CDT 1 mg/hr 2 mL/hr Rate/Dose Change 10/05/2021 9:39 AM CDT 3 mg/hr 6 mL/hr dextrose 5 % and 0.45 % NaCl with KCl 20 mEq infusion at 75 mL/hr, Intravenous, Continuous, Starting on Sun10/03/21 at 0945, Until Sun10/04/21 at 0754 New Bag 10/03/2021 11:41 PM CDT 75 mL/hr New Bag 10/03/2021 9:50 AM CDT 75 mL/hr dilTIAZem (CARDIZEM) 12 mg/mL oral suspension 30 mg 30 mg, Tube, Every 6 hours scheduled (4 times per day), First dose (after last modification) on Sun10/03/21 at 1200, Until Discontinued, HOLD for HR < 60 and/or SBP <100 Given 10/03/2021 2:10 PM CDT 30 mg enoxaparin (LOVENOX) 40 MG/0.4ML syringe 40 mg 40 mg, Subcutaneous, Nightly (enoxaparin), First dose on [facility] 10/06/21 at 2100, Until Discontinued, Administer by deep SubQ injection alternating between the left or right anterolateral and left or right posterolateral abdominal wall. Given 10/08/2021 10:06 PM CDT 40 mg Left Lower Abdomen Given 10/07/2021 10:28 PM CDT 40 mg L eft Lower Abdomen Given 10/06/2021 8:00 PM CDT 40 mg Le ft Lower Abdomen famotidine (PF) (PEPCID) injection 20 mg 20 mg, Intravenous, Every 12 hours scheduled (2 times per day), First dose on Sun10/03/21 at 0900, Until Discontinued, Give if unable to take PO. IV Push over 2 minutes Given 10/03/2021 8:16 PM CDT 20 mg Given 10/03/2021 10:06 AM CDT 20 mg famotidine (PF) (PEPCID) injection 20 mg 20 mg, Intravenous, Once, 1 dose, On [facility] 10/06/21 at 0415, IV Push over 2 minutes Given 10/06/2021 4:11 AM CDT 20 m g fentaNYL (SUBLIMAZE) injection 25 mcg 25 mcg, Intravenous, Once, 1 dose, On [facility] 10/03/21 at 0430, If intravenous (IV) route has been ordered, give over 1-2 minutes. Given 10/03/2021 4:52 AM CDT 25 mcg fentaNYL (SUBLIMAZE) injection 25 mcg 25 mcg, Intravenous, Every 1 hour PRN, Severe pain (Scale 8 - 10), Starting on Sun10/03/21 at 0913, Until Sun10/03/21 at 1016, If intravenous (IV) route has been ordered, give over 1-2 minutes. Given 10/03/2021 9:49 AM CDT 25 mcg fentaNYL (SUBLIMAZE) injection 50 mcg 50 mcg, Intravenous, Once, 1 dose, On Sun10/03/21 at 0145, If intravenous (IV) route has been ordered, give over 1-2 minutes. Given 10/03/2021 1:54 AM CDT 50 mcg fentaNYL (SUBLIMAZE) injection 50 mcg 50 mcg, Intravenous, Every 1 hour PRN, Severe pain (Scale 8 - 10), Starting on Sun10/03/21 at 1014, Until Sun10/04/21 at 0854, If intravenous (IV) route has been ordered, give over 1-2 minutes. Given 10/04/2021 6:03 AM CDT 50 mcg Given 10/03/2021 11:45 PM CDT 50 mcg Given 10/03/2021 11:21 AM CDT 50 mcg hydrALAZINE (APRESOLINE) injection 10 mg 10 mg, [...] hydroCHLOROthiazide (HYDRODIURIL) tablet 25 mg 25 mg, Oral, Daily, First dose on Sun10/03/21 at 1030, Until Discontinued Given 10/03/2021 10:09 AM CDT 25 mg hydroCHLOROthiazide (HYDRODIURIL) tablet 25 mg 25 mg, Tube, Daily, First dose (after last modification) on Sun10/04/21 at 0900, Until Discontinued Given 10/10/2021 8:19 AM CDT 25 mg Given 10/09/2021 9:40 AM CDT 25 mg Given 10/08/2021 8:43 AM CDT 25 mg HYDROcodone-acetaminophen (NORCO) 5-325 MG tablet 1 tablet 1 tablet, Oral, Every 4 hours PRN, Moderate pain (Scale 4 - 7), Starting on Sun10/03/21 at 1016, Until Sun10/03/21 at 1220, Maximum dose of acetaminophen is 4000 mg from all sources in 24 hours. Given 10/03/2021 10:20 AM CDT 1 tab let HYDROcodone-acetaminophen (NORCO) 5-325 MG tablet 1 tablet 1 tablet, Tube, Every 4 hours PRN, Moderate pain (Scale 4 - 7), Starting on Sun10/03/21 at 1219, Until Sun10/08/21 at 0944, Maximum dose of acetaminophen is 4000 mg from all sources in 24 hours. Given 10/08/2021 8:43 AM CDT 1 tabl et Given 10/07/2021 2:47 PM CDT 1 tablet Given 10/07/2021 8:33 AM CDT 1 tablet HYDROcodone-acetaminophen (NORCO) 5-325 MG tablet 1 tablet 1 tablet, Tube, Every 6 hours scheduled (4 times per day), 4 doses, First dose (after last modification) on Sun10/04/21 at 1215, Last dose on Sun10/05/21 at 0600, Maximum dose of acetaminophen is 4000 mg from all sources in 24 hours. Given 10/05/2021 6:26 AM CDT 1 tablet Given 10/04/2021 11:50 PM CDT 1 tablet Given 10/04/2021 12:05 PM CDT 1 tablet HYDROmorphone (DILAUDID) injection 0.5 mg 0.5 mg, Intravenous, Every 3 hours PRN, Severe pain (Scale 8 - 10), Other, break through pain, Starting on Sun10/04/21 at 0854, Until Sun10/08/21 at 0944, Administer slowly over at least 2-3 minutes. Given 10/07/2021 10:48 PM CDT 0.5 mg Given 10/06/2021 10:21 PM CDT 0.5 mg insulin lispro (HUMALOG) injection 0-6 Units 0-6 Units, Subcutaneous, 4 times daily before meals and nightly, First dose on Sun10/03/21 at 1100, Until Discontinued, From sliding scale insulin subcut med order set - For TDI less than 30 units Blood Glucose: (Less than 70, Initiate Hypoglycemia Standing Orders) (70 - 149, administer 0 units) (150 - 199, administer 1 units) (200 - 249, administer 2 units) (250 - 299, administer 3 units) (300 - 349, administer 4 units) (Greater than 349, administer 6 units and Call Physician) Given 10/03/2021 1:26 PM CDT 1 Units Left Arm insulin lispro (HUMALOG) injection 0-6 Units 0-6 Units, Subcutaneous, Every 6 hours, First dose (after last modification) on Sun10/03/21 at 0000, Until Discontinued, From sliding scale insulin subcut med order set - For TDI less than 30 units Blood Glucose: (Less than 70, Initiate Hypoglycemia Standing Orders) (70 - 149, administer 0 units) (150 - 199, administer 1 units) (200 - 249, administer 2 units) (250 - 299, administer 3 units) (300 - 349, administer 4 units) (Greater than 349, administer 6 units and Call Physician) Given 10/04/2021 6:04 AM CDT 1 Units Left Lower Abdomen Given 10/03/2021 11:08 PM CDT 1 Units L eft Lower Abdomen losartan (COZAAR) tablet 100 mg 100 mg, Tube, Daily, First dose on Sun10/04/21 at 1200, Until Discontinued, Therapeutic interchange for olmesartan 40 mg daily. Given 10/10/2021 8:18 AM CDT 100 mg Given 10/09/2021 9:40 AM CDT 100 mg Given 10/08/2021 8:43 AM CDT 100 mg metroNIDAZOLE (FLAGYL) IVPB 500 mg 500 mg, Intravenous, at 100 mL/hr, Every 8 hours, First dose on Sun10/05/21 at 0715, Until Discontinued New Bag 10/07/2021 8:31 AM CDT 500 m g 100 mL/hr New Bag 10/06/2021 11:30 PM CDT 500 mg 100 mL/hr New Bag 10/06/2021 4:12 PM CDT 500 mg 100 mL/hr normal saline 0.9 % flush 3-10 mL 3-10 mL, Intravenous, As needed, Line care, Starting on Sun10/03/21 at 0406, Until Sun10/10/21 at 1325 omeprazole (PriLOSEC) 2 MG/ML oral suspension 40 mg 40 mg, Tube, Daily, First dose on Sun10/03/21 at 1030, Until Discontinued Given 10/06/2021 8:30 AM CDT 40 mg Given 10/05/2021 9:32 AM CDT 40 mg Given 10/04/2021 8:03 AM CDT 40 mg ondansetron (ZOFRAN) injection 4 mg 4 mg, Intravenous, Once, 1 dose, On Sun10/03/21 at 0145, IV push over 2-5 minutes. Given 10/03/2021 1:53 AM CDT 4 mg ondansetron (ZOFRAN) injection 4 mg 4 mg, [...] Given 10/08/2021 8:43 AM CDT 40 mg phosphorus (K PHOS NEUTRAL) tablet 500 mg 500 mg, Tube, 2 times daily, 2 doses, First dose on Sun10/04/21 at 0915, Last dose on Sun10/04/21 at 2100 Given 10/04/2021 10:10 PM CDT 500 mg Given 10/04/2021 9:58 AM CDT 500 mg polyethylene glycol (GLYCOLAX) packet 1 packet 1 packet, Tube, Daily, First dose on Sun10/06/21 at 0915, Until Discontinued, Dissolve powder in 240 mL water Given 10/06/2021 9:08 AM CDT 1 packet potassium chloride 20 mEq in 50 mL IVPB 20 mEq, Intravenous, Administer over 60 Minutes, Every hour scheduled, 3 doses, First dose on Sun10/05/21 at 0700, Last dose on Sun10/05/21 at 0900, Administer total dose of 60 meq over 3 hours. For CENTRAL line only New Bag 10/05/2021 8:38 AM CDT 20 mEq 50 mL/hr New Bag 10/05/2021 7:41 AM CDT 20 mEq 50 mL/hr New Bag 10/05/2021 6:25 AM CDT 20 mEq 50 mL/hr potassium chloride 20 MEQ/50ML IVPB 1 dose, Starting on Sun10/05/21 at 0612, Until Sun10/05/21 at 0725, Created by cabinet override For CENTRAL line only potassium chloride 40 mEq in NS 500 mL IVPB 40 mEq, Intravenous, Administer over 240 Minutes, Once, 1 dose, On Sun10/07/21 at 0645, MAX rate in peripheral line of 10 mEq per hour. New Bag 10/07/2021 6:47 AM CDT 40 mEq 125 mL/hr potassium chloride 40 mEq in NS 500 mL IVPB 40 mEq, Intravenous, Administer over 240 Minutes, Once, 1 dose, On Sun10/07/21 at 1830, MAX rate in peripheral line of 10 mEq per hour. New Bag 10/07/2021 10:28 PM CDT 40 mEq 125 mL/hr potassium chloride CR (KLOR-CON M) tablet 60 mEq 60 mEq, Oral, Once, 1 dose, On Sun10/06/21 at 0645, Do not chew, crush, or suck on tablet. May break in half. May dissolve whole tablet in 120 mL of water and drink immediately. Given 10/06/2021 6:43 AM CDT 60 mEq potassium chloride CR (KLOR-CON M) tablet 60 mEq 60 mEq, Oral, Every 4 hours, 2 doses, First dose on Sun10/07/21 at 0645, Last dose on Sun10/07/21 at 1045, Do not chew, crush, or suck on tablet. May break in half. May dissolve whole tablet in 120 mL of water and drink immediately. Given 10/07/2021 2:47 PM CDT 60 mEq Given 10/07/2021 8:31 AM CDT 60 mEq potassium phosphate 30 mmol in sodium chloride 0.9 % 250 mL IVPB 30 mmol, Intravenous, at 100 mL/hr, Once, 1 dose, On Nadine 10/06/21 at 0915, For each 1 mmol of phosphate, ~1.5 mEq of potassium will be administered. *CENTRAL LINE ONLY* New Bag 10/06/2021 11:52 AM CDT 30 mmol 100 mL/hr prochlorperazine (COMPAZINE) injection 5 mg 5 mg, Intravenous, Once, 1 dose, On Sun10/07/21 at 1430, If giving IV, administer diluted or undiluted by slow IV push at a maximum rate of 5 mg/minute. To reduce the risk of hypotension the patient must remain lying down and be observed for 30 minutes after receiving the medication. Given 10/07/2021 2:46 PM CDT 5 mg pyridostigmine (MESTINON) tablet 30 mg 30 mg, Oral, 3 times daily, First dose on Sun10/03/21 at 0900, Until Discontinued Given 10/04/2021 8:03 AM CDT 30 mg Given 10/03/2021 8:39 PM CDT 30 mg Given 10/03/2021 3:29 PM CDT 30 mg senna-docusate (SENOKOT-S) 8.6-50 MG tablet 1 tablet 1 tablet, Oral, 2 times daily, First dose on Sun10/03/21 at 1000, Until Discontinued Given 10/03/2021 10:06 AM CDT 1 tablet senna-docusate (SENOKOT-S) 8.6-50 MG tablet 1 tablet 1 tablet, Tube, 2 times daily, First dose (after last modification) on Sun10/03/21 at 2100, Until Discontinued Given 10/06/2021 8:10 PM CDT 1 tablet Given 10/06/2021 8:30 AM CDT 1 tablet Given 10/05/2021 8:51 PM CDT 1 tablet sodium chloride 0.9% infusion at 10 mL/hr, Intravenous, Continuous, Starting on 10/03/21 at 0315, Until Sun10/03/21 at 0920, Infuse at TKO rate New Bag 10/03/2021 3:52 AM CDT 250 mLs 10 mL/hr vancomycin 1500 mg in NS 500 mL IVPB 1,500 mg, Intravenous, at 250 mL/hr, Every 24 hours, First dose on Sun10/05/21 at 0800, Until Discontinued New Bag 10/07/2021 8:30 AM CDT 1,500 mg 250 mL/hr New Bag 10/06/2021 8:31 AM CDT 1,500 mg 250 mL/hr New Bag 10/05/2021 9:40 AM CDT 1,500 mg 250 mL/hr documented in this encounter Active and Recently Administered Medications Times are shown in CDT. Scheduled Medication Order 10/08/2021 10/09/2021 10/10/2021 apixaban (ELIQUIS) tablet 5 mg 5 mg, Oral, 2 times daily, First dose on Sun10/09/21 at 0900, Until Discontinued 0940 (Given - Provider: Zehra Salomon RN)2040 (Given - Provider: Nicole Dee RN) 0819 (Given - Provider: Ashanti Duran, TUNDE) aspirin EC (ECOTRIN) tablet 81 mg 81 mg, Oral, Daily, First dose on 10/08/21 at 1515, Until Discontinued, Do not break, chew, or crush. 1659 (Given - Provider: Zehra Salomon RN) 0940 (Given - Provider: Zehra Salomon RN) 0819 (Given - Provider: Ashanti Duran, TUNDE) carvedilol (COREG) tablet 12.5 mg 12.5 mg, Tube, 2 times daily, First dose (after last modification) on Nadine 10/06/21 at 2100, Until Discontinued, Take with meal or snack Hold if HR <60 or SBP < 100 0843 (Given - Provider: Zehra Salomon RN)2207 (Given - Provider: Baldev Norwood RN) 0940 (Given - Provider: Zehra Salomon RN)2040 (Given - Provider: Nicole Dee RN) 0819 (Given - Provider: Ashanti Duran RN) enoxaparin (LOVENOX) 40 MG/0.4ML syringe 40 mg (CANCELED) 40 mg, Subcutaneous, Nightly (enoxaparin), First dose on Sun10/06/21 at 2100, Until Discontinued, Administer by deep SubQ injection alternating between the left or right anterolateral and left or right posterolateral abdominal wall. 2205 (Given - Provider: Baldev Norwood RN) hydroCHLOROthiazide (HYDRODIURIL) tablet 25 mg 25 mg, Tube, Daily, First dose (after last modification) on Sun10/04/21 at 0900, Until Discontinued 0843 (Given - Provider: Zehra Salomon RN) 0940 (Given - Provider: Zehra Salomon RN) 0819 (Given - Provider: Ashanti Duran RN) losartan (COZAAR) tablet 100 mg 100 mg, Tube, Daily, First dose on Sun10/04/21 at 1200, Until Discontinued, Therapeutic interchange for olmesartan 40 mg daily. 0843 (Given - Provider: Zehra Salomon RN) 0940 (Given - Provider: Zehra Salomon RN) 0818 (Given - Provider: Ashanti Duran, TUNDE) orphenadrine ER (NORFLEX) 12 hr tablet 100 mg 100 mg, Oral, 2 times daily, First dose on Sun10/07/21 at 0915, Until Discontinued, Do not break or crush tablet Do not break, chew, or crush. 0843 (Given - Provider: Zehra Salomon RN)2206 (Given - Provider: Baldev Norwood RN) 0940 (Given - Provider: Zehra Salomon RN)2040 (Given - Provider: Nicole Dee RN) 0819 (Given - Provider: Ashanti Duran, [...] Salomon RN) 0940 (Given - Provider: Zehra Salomon, RN) 0820 (Given - Provider: Ashanti Duran, TUNDE) PRN Medication Order 10/08/2021 10/09/2021 10/10/2021 acetaminophen (TYLENOL) tablet 650 mg(Linked Group 1) 650 mg, Tube, Every 4 hours PRN, Mild pain (Scale 1 - 3), Starting on 10/03/21 at 1219, Until 10/10/21 at 1325, Maximum dose of [...] Zehra Salomon RN) 0149 (Given - Provider: Baldev Norwood RN)0945 (Given - Provider: Zehra Salomon RN)2040 (Given - Provider: Nicole Dee, TUNDE) benzocaine 20 % (HURRICAINE) mouth solution 1 spray 1 spray, Mouth/Throat, Every 6 hours PRN, Pain, Starting on 10/03/21 at 2100, Until 10/10/21 at 1325, Do NOT recommend use for teething & mouth pain in infants & children under 2 years. hydrALAZINE (APRESOLINE) injection 10 mg 10 mg, Intravenous, Every 6 hours PRN, Other, SBP > 160 mmHg, Starting on Nadine 10/06/21 at 0857, Until 10/10/21 at 1325, Monitor HR and BP before dose and 15 min after IV dose. For IV push give over 1-2 minutes=5mg/min. 0901 (Given - Provider: Zehra Salomon RN) HYDROcodone-acetaminophen (NORCO) 5-325 MG tablet 1 tablet (CANCELED) 1 tablet, Tube, Every 4 hours PRN, Moderate pain (Scale 4 - 7), Starting on 10/03/21 at 1219, Until 10/08/21 at 0944, Maximum dose of acetaminophen [...] over 2-5 minutes. 0749 (Given - Provider: Baldev Norwood, RN)2206 (Given - Provider: Baldev Norwood, TUNED) Linked Groups Order Group 1: acetaminophen (TYLENOL) [...] 3), Starting on Sun10/03/21 at 1219, Until Sun10/07/21 at 0848, Give if unable to take PO. Maximum dose of acetaminophen is 4000 mg from all sources in 24 hours. Or acetaminophen (TYLENOL) 160 MG/5ML solution 650 mg (CANCELED) 650 mg, Tube, Every 4 hours PRN, Mild pain (Scale 1 - 3), Starting on Sun10/03/21 at 1219, Until Sun10/07/21 at 0848, Give if unable to swallow tablets/capsules or if patient prefers liquid. Maximum dose of acetaminophen is 4000 mg from all sources in 24 hours. documented in this encounter Additional Health Concerns Infection Onset Date Last Indicated Resolved Time COVID-19 Rule Out 10/03/2021 10/03/2021 10/03/2021 3:46 AM CDT documented as of this encounter Care Teams Business Operations Specialist Relationship Specialty Start Date End Date Last Bain MD [address] [place] [address] PCP - General FAMILY PRACTICE 05/09/21 Nahid Hickman MD [address] [address] PCP - ONCOLOGY HEMATOLOGY/ONCOLOGY 10/03/21 Kiel Vasquez MD [address] [facility] [address] [place] [address] Consulting Physician CARDIOLOGY 10/03/21 documented as of this encounter
--- OUTSIDE RECORDS SUMMARY | 2024-07-01 00:26 | XMS_ITS | Encounter Summary ---
Author Organization [facility] Address [facility] [facility] [place] [address] [place] [address] Care Team Providers Care Auction Assistant Name Role Phone Aliza Bain MD Primary Care Provider Nahid Hickman MD Unavailable [phone] Kile Vasquez MD Unavailable [phone] Reason for Visit * Reason Comments Myasthenia Gravis (MG) * Consultation/Treatment (Routine) - Closed Specialty Diagnoses / Procedures Referred By Contact Referred To Contact NEUROMUSCULOSKELETAL MEDICIN E / NEUROLOGY Diagnoses 4 month follow up Procedures FOLLOW UP Kris Amado MD [address] [place] [address] Phone: tel:[phone] fax:[phone] Kris Amado MD [address] [place] [address] Phone: tel:[phone] fax:[phone] Referral ID Status Reason Start Date Expiration Date Visits Re quested Visits Authorized [id number] Closed 10/18/2021 10/18/2021 1 1 Encounter Details Date Type Department Care Team (Latest Contact Info) Description 10/18/2021 1:40 PM CDT Office Visit [facility] Medical Group Multispecialty Care - [address], [address] [place] [phone] Kris Amado MD [address] [place] [address] Myasthenia Gravis (MG) Social History Tobacco Use Types Packs/Day Years Used Date Smoking Tobacco: Former Cigarettes 0.5 40 1 962 - 2001 Smokeless Tobacco: Never Tobacco Cessation:Counseling Given: Yes Alcohol Use Standard Drinks/Week Comments Yes 0 [...] Sign Reading Time Taken Comments Blood Pressure 128/68 10/18/2021 1:47 PM CDT Pulse 64 10/18/2021 1:47 PM CDT Temperature 36.4 ??C (97.6 ??F) 10/18/2021 1:47 PM CD T Respiratory Rate 18 10/18/2021 1:47 PM CDT Oxygen Saturation 97% 10/18/2021 1:47 PM CDT Inhaled Oxygen Concentration - - Weight 64 kg (141 lb) 10/18/2021 1:47 PM CDT Height 160 cm (5' 3 ) 10/18/2021 1:47 PM CDT Body Mass Index 24.98 10/18/2021 1:47 PM CDT documented in this encounter Functional [...] Progress Notes * Kris Amado MD - 10/18/2021 1:40 PM CDT Chief Complaint: Myasthenia HPI: We had the pleasure of seeing [...] vision ENT:?denies??epistaxis Pulm:?denies??shortness of breath Cardiac:??denies??Chest pain GI: has lower abdominal pain Musc:?has??back pain Neuro: ??See HPI Current Outpatient Medications Medication Sig Dispense Refill ??? apixaban 5 MG tablet Take 5 mg by mouth 2 (two) times daily. ??? aspirin EC (ASPIRIN EC) 81 MG tablet Take 81 mg by mouth daily. ??? calcium carbonate-vitamin D (OYSTER SHELL CALCIUM-VITAMIN D) 500-200 MG-UNIT Tab Take 1 tablet by mouth daily. ??? Cyanocobalamin 100 MCG Tab Take 100 mcg by mouth daily. ??? hydroCHLOROthiazide 25 MG tablet Take 25 mg by mouth every morning. ??? Olmesartan Medoxomil 40 MG Tab Take 40 mg by mouth daily. ??? pantoprazole EC 40 MG tablet ??? TIADYLT ER 120 MG 24 hr capsule 120 mg daily. Indications: haven't started yet No current facility-administered medications for this visit. Filed Vitals: 10/18/21 1347 BP: 128/68 Pulse: 64 Resp: 18 Temp: 97.6 ??F (36.4 ??C) TempSrc: Temporal SpO2: 97% Weight: 64 kg (141 lb) Height: 5' 3 (1.6 m) Past Medical History: Diagnosis Date ??? Anticoagulated [...] since quittin.3 ??? Smokeless tobacco: Never Used Vaping Use [...] shrug. XII: tongue was midline and strong. MOTOR: Normal strength 5/5 on MRC scale in the upper and lower extremities. GAIT: Normal stride and base. 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 So far her eye symptoms are remained stable. I will hold off on Mestinon as she has a GI issues. In case they worsen, she will call me at which time I will give a retrial of Mestinon at a lower dose. She also has microvascular disease. She is already optimized on aspirin and apixaban. I have asked her to continue same. She also had carotid stenosis. She will follow-up with vascular surgery yearly as before. Finally, she does have recent history of splenic rupture as well as cardiac ablation for atrial fibrillation. I have asked her to discuss to see if she would need apixaban long-term given the fact that she recently had cardiac ablation. Miguelina also asked her to heal completely from her splenic rupture and surgery at which time she will see me back for further discussion of her ocular myasthenia. I will see her back in 5 months. Time spent: 20 total minutes reviewing records, history that was separately obtained, performing the exam, providing education to the patient/caregiver, ordering medicine and documenting in the medical record. KRIS AMADO MD documented in this encounter Plan of Treatment Upcoming Encounters Date Type Department Care Team (Late st Contact Info) Description 07/22/2024 11:40 AM CASH SURRENDER CALCULATOR Office Visit [facility] Medical Group Multispecialty Care - [facility] [address] [facility], [address] [place] [address] Kris Amado MD [address] [place] [address] 10/16/2024 11:00 AM CDT Appointment [facility] [place] [address] Jimmy Morris MD Three [facility]. [address] [place] [address] documented as of this encounter Goals Goal Patient Goal Type Associated Problems Recent Progress Patient-Stated? Author Safety ? Patient/family will have appropriate support at home upon discharge Zoila Deng RN documented as of this encounter Visit Diagnoses Diagnosis Myasthenia gravis ([facility] Primary Myasthenia gravis without exacerbation documented in this encounter Care Teams Auction Assistant Relationship Specialty Start Date End Date Aliza Bain MD [address] [place] [address] PCP - General FAMILY PRACTICE 05/09/21 Nahid Hickamn MD [address] [facility] [address] [place] [address] PCP - ONCOLOGY HEMATOLOGY/ONCOLOGY 10/03/21 Kiel Vasquez MD [address] [facility] [address] [place] [address] Consulting Physician CARDIOLOGY 10/03/21 documented as of this encounter
--- OUTSIDE RECORDS SUMMARY | 2024-07-01 00:27 | XMS_ITS | Encounter Summary ---
Author Organization [facility] Address [facility] [facility] [place] [address] [place] [address] Care Team Providers Care Director Of Infection Prevention Name Role Phone Aliza Bain MD Primary Care Provider Encounter Details Date Type Department Care Team (Latest Contact Info) Description 10/02/2021 Travel Social History Tobacco Use Types Packs/Day [...] PM CDT documented as of this encounter Plan of Treatment Upcoming Encounters Date Type Department Care Team (Late st Contact Info) Description 07/22/2024 11:40 AM AIRPLANE CAPTAIN Office Visit [facility]ialty Care [facility] [address] [place] [address] Kris [facility]ado MD [address] [facility] [place] [address] 10/16/2024 11:[address] [facility] [address] [facility] [place] [address] Jimmy Morris MD Three [facility]. [address] [place] [address] documented as of this encounter Visit Diagnoses Not on filedocumented in this encounter Care Teams Director Of Infection Prevention Relationship Specialty Start Date End Date Aliza Bain MD [address] [place] [address] PCP - General FAMILY PRACTICE 05/09/21 documented as of this encounter
--- OUTSIDE RECORDS SUMMARY | 2024-07-01 00:27 | XMS_ITS | Encounter Summary ---
Author Organization [facility] Address [facility] [facility] [place] [address] [place] [address] Care Team Providers Care Vacuum Form Operator Name Role Phone Aliza Bain MD Primary Care Provider Reason for Visit * Reason Onset Date Comments ER F/U 07/04/2021 Encounter Details Date Type Department Care Team (Late st Contact Info) Description 07/04/2021 Telephone [facility] Medical Group Multispecialty Care - [facility] [address] [facility], [address] [place] [address] Kris Amado MD [address] [place], [place] [id number] ER F/U Social History Tobacco Use Types Packs/Day Years [...] Exposure Response Date Recorded In the last month, have you been in contact with someone who was confirmed or suspected to have Coronavirus / COVID-19? No / Unsure 06/21/2021 1:54 PM CORPORATE DEVELOPMENT INTERN documented as of this encounter Progress Notes * Brittny Larsen - 07/04/2021 3:02 PM CST Pt asking to speak to someone Pt went to [facility] ER They increased her diltazem to 240 mg per day, changed her to pantoprozole 40 mg. Everything else was left the same. Please call pt if you are needing anything more ORATE DEVELOPMENT INTERN documented in this encounter Plan of Treatment Upcoming Encounters Date Type Department Care Team (Late st Contact Info) Description 07/22/2024 11:40 AM CORPORATE DEVELOPMENT INTERN Office Visit [facility] Medical Group Multispecialty Care - [facility] [address] [facility], [address] [place] [address] Kris Amado MD [address] [place] [address] 10/16/2024 11:00 AM CDT Appointment [facility] [place] [address] Jimmy Morris MD Three [facility]. [address] [place] [address] documented as of this encounter Visit Diagnoses Not on filedocumented in this encounter Care Teams Vacuum Form Operator Relationship Specialty Start Date End Date Aliza Bain MD [address] [place] [address] PCP - General FAMILY PRACTICE 05/09/21 documented as of this encounter
--- OUTSIDE RECORDS SUMMARY | 2024-07-01 00:27 | XMS_ITS | Encounter Summary ---
Author Organization [facility] Address [address] [place] [address]. [place] [address] [place] [address] Care Team Providers Care Tailings Worker Name Role Phone Aliza Bain MD Primary Care Provider Reason for Visit * Reason Onset Date Comments Returned Call 08/29/2021 Encounter Details Date Type Department Care Team (Late st Contact Info) Description 08/29/2021 Telephone [facility] Medical Group Multispecialty Care - [facility] [address] [facility], [address] [place] [phone] Kris Amado MD [address] [place] [address] Returned Call Social History Tobacco Use Types Packs/Day Years [...] suspected to have Coronavirus/COVID-19? No / Unsure 08/25/2021 4:01 PM CULINARY ASSISTANT documented as of this encounter Progress Notes * Ashanti Leigh MA - 08/29/2021 11:23 AM CDT Called patient, discussed results- voiced understanding * Brittny Larsen - 08/29/2021 10:42 AM CDT Pt returned a call she missed from Dr Nguyen's office If you are needing to speak to pt please call her documented in this encounter Plan of Treatment Upcoming Encounters Date Type Department Care Team (Late st Contact Info) Description 07/22/2024 11:40 AM CULINARY ASSISTANT Office Visit [facility] Medical Group Multispecialty Care - [facility] [address] [facility], [address] [place] [address] Kris Amado MD [address] [place] [address] 10/16/2024 11:00 AM CDT Appointment [facility] [place] [address] Jimmy Morris MD Three [facility]. [address] [place] [address] documented as of this encounter Visit Diagnoses Not on filedocumented in this encounter Care Teams Tailings Worker Relationship Specialty Start Date End Date Aliza Bain MD [address] [place] [address] PCP - General FAMILY PRACTICE 05/09/21 documented as of this encounter
--- OUTSIDE RECORDS SUMMARY | 2024-07-01 00:27 | XMS_ITS | Encounter Summary ---
Author Organization [facility] Address [facility] [facility] [place] [address] [place] [address] Care Team Providers Care Street Commissioner Name Role Phone Aliza Bain MD Primary Care Provider Encounter Details Date Type Department Care Team (Latest Contact Info) Description 06/21/2021 Travel Social History Tobacco Use Types Packs/Day [...] COVID-19? No / Unsure 06/21/2021 1:54 PM PERSONNEL CLERK documented as of this encounter Plan of Treatment Upcoming Encounters Date Type Department Care Team (Late st Contact Info) Description 07/22/2024 11:40 AM PERSONNEL CLERK Office Visit [facility] Medical Group Multispecialty Care - [facility] [address] [facility], [address] [place] [address] Kris Amado MD [address] [place] [address] 10/16/2024 11:00 AM CDT Appointment [facility] [address] [facility] [place] [address] Jimmy Morris MD Three [facility]. [address] [place] [address] documented as of this encounter Visit Diagnoses Not on filedocumented in this encounter Care Teams Street Commissioner Relationship Specialty Start Date End Date Aliza Bain MD [address] [place] [address] PCP - General FAMILY PRACTICE 05/09/21 documented as of this encounter
--- OUTSIDE RECORDS SUMMARY | 2024-07-01 00:27 | XMS_ITS | Encounter Summary ---
Author Organization [facility] Address [facility]6 [place] [address] [place] [address] Care Team Providers Care Party Chief Name Role Phone Aliza Bain MD Primary Care Provider Encounter Details Date Type Department Care Team (Latest Contact Info) Description 09/24/2021 Travel Social History Tobacco Use Types Packs/Day [...] suspected to have Coronavirus/COVID-19? No / Unsure 09/24/2021 8:01 AM CDT documented as of this encounter Plan of Treatment Upcoming Encounters Date Type Department Care Team (Late st Contact Info) Description 07/22/2024 11:40 AM FORK TRUCK DRIVER Office Visit [facility]ial[facility] [address], [address] [place] [phone] Kris Amado MD 3 [facility] [place] [address] 10/16/2024 11:[address] [facility] [address] Jimmy Morris MD Three [facility]. [address] [place] [address] documented as of this encounter Visit Diagnoses Not on filedocumented in this encounter Care Teams Party Chief Relationship Specialty Start Date End Date Aliza Bain MD [address] [place] [address] PCP - General FAMILY PRACTICE 05/09/21 documented as of this encounter
--- OUTSIDE RECORDS SUMMARY | 2024-07-01 00:27 | XMS_ITS | Encounter Summary ---
Author Organization [facility] Address [facility]6 [facility] [place] [address] [place] [address] Care Team Providers Care Transit Department Clerk Name Role Phone Aliza Bain MD Primary Care Provider Reason for Visit * Reason Onset Date Comments Lab Order 06/02/2021 Encounter Details Date Type Department Care Team (Late st Contact Info) Description 06/02/2021 Telephone [facility] - [facility] [address] [facility], [address] [place] [address] Kris Amado MD 3 [place] [address] Lab Order Social History Tobacco Use Types Packs/Day Years [...] have Coronavirus / COVID-19? No / Unsure 06/01/2021 12:34 PM ENTRY LEVEL RECRUITER documented as of this encounter Progress Notes * Monica Moreira MA - 06/02/2021 3:28 PM CST Spoke to pt and stated a cholesterol test was not done. She voiced understanding. Y LEVEL RECRUITER * Munira Taylor Beatriz - 06/02/2021 2:36 PM CST Patient is calling to ask if Dr. Nguyen did a cholesterol test. Patient's PCP is having the patient ask.Call patient to discuss [phone] Y LEVEL RECRUITER documented in this encounter Plan of Treatment Upcoming Encounters Date Type Department Care Team (Late st Contact Info) Description 07/22/2024 11:40 AM ENTRY LEVEL RECRUITER Office Visit [facility] [address] [facility], [address] [place] [address] Kris Amado MD 3 [place] [address] 10/16/2024 11:00 AM CDT Appointment [facility] [place] [address] Jimmy Morris MD Three [facility]. [address] [place] [address] documented as of this encounter Visit Diagnoses Not on filedocumented in this encounter Care Teams Transit Department Clerk Relationship Specialty Start Date End Date Aliza Bain MD [address] [place] [address] PCP - General FAMILY PRACTICE 05/09/21 documented as of this encounter
--- OUTSIDE RECORDS SUMMARY | 2024-07-01 00:27 | XMS_ITS | Encounter Summary ---
Author Organization [facility] Address [facility] [place] [address] [place] [address] Care Team Providers Care Athletic Gear Custodian Name Role Phone Alzia Bain MD Primary Care Provider Reason for Visit * Reason Onset Date Comments Results 05/25/2021 Encounter Details Date Type Department Care Team (Late st Contact Info) Description 05/25/[address] [facility] Multispecialty Care - [facility] 3 [facility], [address] [place] [address] Kris Amado MD 3 [place] [address] Results Social History Tobacco Use Types Packs/Day [...] have Coronavirus / COVID-19? No / Unsure 05/09/2021 1:28 PM OIL FIELD LABORER documented as of this encounter Progress Notes * Ashanti Dillard RN - 05/25/2021 11:49 AM CST Spoke with patient to discuss lab results. Patient verbalized understanding. FIELD LABORER * Ashanti Dillard RN - 05/25/2021 11:48 AM CST ----- Message from Clayton Richardson MD sent at 05/25/2021 11:24 AM OIL FIELD LABORER ----- Can you please let them know their results were normal FIELD LABORER documented in this encounter Plan of Treatment Upcoming Encounters Date Type Department Care Team (Late st Contact Info) Description 07/22/2024 11:40 AM OIL FIELD LABORER Office Visit [facility] Mult[facility]ialty Care - [facility] 3 [facility], [address] [place] [address] Kris Amado MD 3 [place] [address] 10/16/2024 11:00 AM CDT Appointment [facility] [place] [address] Jimmy Morris MD Three [facility]. [address] [place], [place] [address] documented as of this encounter Visit Diagnoses Not on filedocumented in this encounter Care Teams Athletic Gear Custodian Relationship Specialty Start Date End Date Aliza Bain MD [address] [place] [address] PCP - General FAMILY PRACTICE 05/09/21 documented as of this encounter
--- OUTSIDE RECORDS SUMMARY | 2024-07-01 00:27 | XMS_ITS | Encounter Summary ---
Author Organization [facility] Address [facility] [place] [address] [place] [address] Care Team Providers Care Telegraph And Teletype Operator Name Role Phone Aliza Bain MD Primary Care Provider Reason for Visit * Reason Onset Date Comments Results 09/26/2021 Encounter Details Date Type Department Care Team (Late st Contact Info) Description 09/26/2021 Telephone [facility] Medical [facility] Multispecialty Care - [facility] 3 [facility], [address] [place] [address] Kris Amado MD 3 [place] [address] Results Social History Tobacco Use Types Packs/Day [...] AM CDT documented as of this encounter Progress Notes * Ashanti Dillard RN - 09/26/2021 3:50 PM CDT Patient already follows with vascular at [facility]. Patient stated she will go to their office and have them request the testing from us. 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 I will put a referral to vascualr surgery to get their opinion on it documented in this encounter Plan of Treatment Upcoming Encounters Date Type Department Care Team (Late st Contact Info) Description 07/22/2024 11:40 AM BANKRUPTCY LAW SPECIALIST Office Visit [facility] Multispecialty Care - [facility] 3 [facility], [address] [place] [address] Kris Amado MD 3 [place] [address] 10/16/2024 11:00 AM CDT Appointment [facility] [place] [address] Jimmy Morris MD Three [facility]. [address] [place] [address] documented as of this encounter Visit Diagnoses Not on filedocumented in this encounter Care Teams Telegraph And Teletype Operator Relationship Specialty Start Date End Date Aliza Bain MD [address] [place] [address] PCP - General FAMILY PRACTICE 05/09/21 documented as of this encounter
--- OUTSIDE RECORDS SUMMARY | 2024-07-01 00:27 | XMS_ITS | Encounter Summary ---
Author Organization [facility] Address [facility]6 [place] [address] [place] [address] Care Team Providers Care Public Relations Player Name Role Phone Aliza Bain MD Primary Care Provider Reason for Referral * Imaging (Routine) - Closed Specialty Diagnoses / Procedures Referred By Contac t Referred To Contact RADIOLOGY Diagnoses Cerebrovascular accident (CVA), unspecified mechanism (CMS/HCC HHS/HCC) Procedures MRA NECK WWO CON Kris Amado MD [address] [place] [address] Phone: tel: fax: Referral ID Status Reason Start Date Expiration Date Visits Re quested Visits Authorized [id number] Closed 08/28/2021 09/28/2022 1 1 Encounter Details Date Type Department Care Team (Late st Contact Info) Description 08/28/2021 Orders Only [facility] Multispecialty Care - [address], [address] [place] [address] Kris Amado MD [address] [place] [id number] Social History Tobacco Use Types Packs/Day Years [...] Coronavirus/COVID-19? No / Unsure 08/25/2021 4:01 PM DATA ENTRY OPERATOR documented as of this encounter Plan of Treatment Upcoming Encounters Date Type Department Care Team (Late st Contact Info) Description 07/22/2024 11:40 AM DATA ENTRY OPERATOR Office Visit [facility] Multispecialty Care - [facility] 3 [facility], [address] [place] [address] Kris Aamdo MD 3 [place] [address] 10/16/2024 11:00 AM CDT Appointment [facility] Vascular Lab [address] [place], [place] [id number] Jimmy Morris MD Three [facility]. [address] [place], [place] [id number] documented as of this encounter Results * MRA NECK WWO CON (09/24/2021 8:51 AM CDT) Anatomical Region Laterality Modality Neck Magnetic Resonan ce 09/25/2021 11:5 4 PM CDT Impressions 09/25/2021 11:58 PM CDT IMPRESSION: 1. ??Moderate length segment of 50-60 % stenosis proximal left ICA. 2. ??Moderate length stenosis of 40-50% of the proximal right ICA. 3. ??Absent flow in the first half of left vertebral artery with some reconstitution of flow distally with multisegmental stenoses. ??This could be a congenital variant with some distal reconstituted flow from accessory arterial source versus dissection and/or proximal occlusion. ??No comparison available. Referred By: KRIS AMADO Interpreted By: Dexter Wang MD, 09/25/2021 11:54 PM Narrative 09/25/2021 11:58 PM CDT EXAMINATION: MRA neck with and without contrast EXAM DATE/TIME: 09/24/2021 8:17 AM REASON FOR EXAM: ??stroke See Comments to the Radiologist ?? Drooping right eye for one year without pain COMPARISON: No prior MRA or CTA of the neck TECHNIQUE: 3-D wxpx-cd-lyvlxj imaging obtained of the cervical arterial vasculature. Following this FL 3-D coronal acquisition of the cervical vasculature was performed after uneventful intravenous administration of 13 cc Dotarem. ??Subsequent 3-D rotational MIP reconstructions of the left and right carotid circulations are created on separate workstation for review. ??NASCET guidelines utilized for ICA stenosis grading. FINDINGS: Left aortic arch. ??Low-grade stenosis near the origin of the left subclavian artery. ??Brachiocephalic artery pain. ??Low-grade stenosis of mid portion of visualized right subclavian artery. ??There is a moderate length segment of moderate stenosis of the left ICA just distal to the origin. ??This is approximately 50-60% stenosis at this level. ??There is a symmetrical appearing stenosis on the right side near the origin of the ICA of approximately 40-50%. ??The bilateral common carotid arteries, remainder of internal carotid arteries, and external carotid arteries are normal in caliber. ??Right vertebral artery is patent and normal in caliber. ??The proximal approximately 50% of the left vertebral artery is nonvisualized. ??There is some distal reconstitution of flow in the left vertebral artery with multifocal stenoses. ??It is uncertain if this is a congenital variant with some contribution to the distal vertebral artery via the thyrocervical trunk or if there has been a dissection. ??Visualized basilar artery is patent. Procedure Note Dexter Wang MD - 09/25/2021 EXAMINATION: MRA neck with and without contrast EXAM DATE/TIME: 09/24/2021 8:17 AM REASON FOR EXAM: stroke See Comments to the Radiologist Drooping right eye for one year without pain COMPARISON: No prior MRA or CTA of the neck TECHNIQUE: 3-D gnzy-ao-jwhvfs imaging obtained of the cervical arterialvasculature. Following this FL 3-D coronal acquisition of the cervicalvasculature was performed after uneventful intravenous administration of13 cc Dotarem. Subsequent 3-D rotational MIP reconstructions of the leftand right carotid circulations are created on separate workstation forreview. NASCET guidelines utilized for ICA stenosis grading. FINDINGS: Left aortic arch. Low-grade stenosis near the origin of theleft subclavian artery. Brachiocephalic artery pain. Low-grade stenosisof mid portion of visualized right subclavian artery. There is a moderatelength segment of moderate stenosis of the left ICA just distal to theorigin. This is approximately 50-60% stenosis at this level. There is asymmetrical appearing stenosis on the right side near the origin of theICA of approximately 40-50%. The bilateral common carotid arteries,remainder of internal carotid arteries, and external carotid arteries arenormal in caliber. Right vertebral artery is patent and normal incaliber. The proximal approximately 50% of the left vertebral artery isnonvisualized. There is some distal reconstitution of flow in the leftvertebral artery with multifocal stenoses. It is uncertain if this is acongenital variant with some contribution to the distal vertebral arteryvia the thyrocervical trunk or if there has been a dissection. Visualizedbasilar artery is patent. IMPRESSION: 1. Moderate length segment of 50-60 % stenosis proximal left ICA. 2. Moderate length stenosis of 40-50% of the proximal right ICA. 3. Absent flow in the first half of left vertebral artery with somereconstitution of flow distally with multisegmental stenoses. This couldbe a congenital variant with some distal reconstituted flow from accessoryarterial source versus dissection and/or proximal occlusion. Nocomparison available. Referred By: KRIS AMADO Interpreted By: Dexter Wang MD, 09/25/2021 11:54 PM us Kris Amado MD MRI Final Res ult documented in this encounter Visit Diagnoses Diagnosis Cerebrovascular accident (CVA), unspecified mechanism (CMS/HCC HHS/HCC)- Primary Cerebrovascular accident (CVA), unspecified mechanism (CMS/HCC HHS/HCC) documented in this encounter Care Teams Public Relations Player Relationship Specialty Start Date End Date Aliza Bain MD [address] [place] [address] PCP - General FAMILY PRACTICE 05/09/21 documented as of this encounter
--- OUTSIDE RECORDS SUMMARY | 2024-07-01 00:27 | XMS_ITS | Encounter Summary ---
Author Organization [facility] Address [facility]6 [facility]. [place], [place] [address] [place] [address] Care Team Providers Care Healthcare Insurance Sales Agent Name Role Phone Aliza Bain MD Primary Care Provider Reason for Referral * Imaging (Routine) - Closed Specialty Diagnoses / Procedures Referred By Contac t Referred To Contact RADIOLOGY Diagnoses Cerebrovascular accident (CVA), unspecified mechanism (CMS/HCC HHS/HCC) Procedures MRA NECK WWO CON Kris Amado MD 3 [place] [address] Phone: tel: fax: Referral ID Status Reason Start Date Expiration Date Visits Re quested Visits Authorized [id number] Closed 08/28/2021 09/28/2022 1 1 Reason for Visit * Imaging (Routine) - Closed Specialty Diagnoses / Procedures Referred By Contac t Referred To Contact RADIOLOGY Diagnoses Cerebrovascular accident (CVA), unspecified mechanism (CMS/HCC HHS/HCC) Procedures MRA NECK WWO CON Kris Amado MD [address] [place] [address] Phone: tel: fax: Referral ID Status Reason Start Date Expiration Date Visits Re quested Visits Authorized [id number] Closed 08/28/2021 09/28/2022 1 1 Encounter Details Date Type Department Care Team (Latest Contact Info) Description 09/24/2021 8:06 AM CDT - 09/24/2021 11:59 PM CDT Hospital Encounter [facility] [place] [address] Kris Amado MD 3 [facility] [place] [address] Discharge Disposition: Home or Self Care (Routine [...] AM CDT documented as of this encounter Medications at Time of Discharge [...] tablet (40 mg total) by mouth daily. dilTIAZem CD 120 MG 24 hr capsule 06/16/2021 10/04/19 dilTIAZem XR 120 MG 24 hr capsule Take 120 mg by mouth daily. 06/16/2021 10/04/2021 magnesium oxide 250 MG tablet 10/03/2021 omeprazole 20 MG capsule Take 20 mg by mouth daily. 05/16/2021 10/04/2021 pantoprazole EC 40 MG tablet Take 40 mg by mouth 2 (two) times daily. 08/05/2021 10/03/2021 pyridostigmine 60 MG tabletIndications :Myasthenia gravis ([facility]) Take 0.5 tablets (30 mg total) by mouth 3 (three) times daily. 180 tablet 6 06/21/2021 10/04/2021 documented as of this encounter Plan of Treatment Upcoming Encounters Date Type Department Care Team (Late st Contact Info) Description 07/22/2024 11:40 AM DATA INTEGRATION ANALYST Office Visit [facility] Medical [facility] Multispecialty Care - [facility] 3 [facility], [address] [place] [address] Kris Amado MD 3 [place] [address] 10/16/2024 11:00 AM CDT Appointment [facility] Vascular Lab ONE [place], [place] [phone] Jimmy Morris MD Three [facility]. [address] [place], [place] [id number] documented as of this encounter Procedures Procedure Name Priority Date/Time Associated Diagnosis Comments MRA NECK WWO CON Routine 09/24/2021 8:51 AM CDT Cerebrovascular accident (CVA), unspecified mechanism ([facility]) documented in this encounter Results * MRA NECK WWO [...] or CTA of the neck TECHNIQUE: 3-D weac-sp-inoigg imaging obtained of the cervical arterial vasculature. [...] or CTA of the neck TECHNIQUE: 3-D xnyj-bu-jyutih imaging obtained of the cervical arterialvasculature. Following [...] Diagnosis Cerebrovascular accident (CVA), unspecified mechanism (CMS/HCC [facility]) documented in this encounter Administered Medications Inactive Administered Medications - up to 3 most recent administrations Medication Order MAR Action Action Date Dose Rate Site gadoterate meglumine (DOTAREM) 7.5 MMOL/15ML injection 13 mL 13 mL, Intravenous, IMG once as needed, Contrast, 1 dose, Starting on 09/24/21 at 0851, Until 09/24/21 at 0851 Given 09/24/2021 8:51 AM CDT 13 mLs Left Arm documented in this encounter Care Teams Healthcare Insurance Sales Agent Relationship Specialty Start Date End Date Aliza Bain MD [address] [place] [address] PCP - General FAMILY PRACTICE 05/09/21 documented as of this encounter
--- OUTSIDE RECORDS SUMMARY | 2024-07-01 00:27 | XMS_ITS | Encounter Summary ---
Author Organization [facility] Address [facility]6 [facility] [address] [place] [address] Care Team Providers Care Safety Grooving Machine Operator Name Role Phone Aliza Bain MD Primary Care Provider Encounter Details Date Type Department Care Team (Latest Contact Info) Description 08/25/2021 Travel Social History Tobacco Use Types Packs/Day [...] Coronavirus/COVID-19? No / Unsure 08/25/2021 4:01 PM ACCESS SERVICE REPRESENTATIVE documented as of this encounter Plan of Treatment Upcoming Encounters Date Type Department Care Team (Late st Contact Info) Description 07/22/2024 11:40 AM ACCESS SERVICE REPRESENTATIVE Office Visit [facility] Multispecialty Care - [facility] [address] [facility], [address] [place] [address] Kris Amado MD 3 [place] [address] 10/16/2024 11:00 AM CDT Appointment [facility] [address] [address] Jimmy Morris MD Three [place]. [address] [place] [address] documented as of this encounter Visit Diagnoses Not on filedocumented in this encounter Care Teams Safety Grooving Machine Operator Relationship Specialty Start Date End Date Aliza Bain MD [address] [place] [address] PCP - General FAMILY PRACTICE 05/09/21 documented as of this encounter
--- OUTSIDE RECORDS SUMMARY | 2024-07-01 00:27 | XMS_ITS | Encounter Summary ---
Author Organization [facility] Address [facility] [place] [address] [place] [address] Care Team Providers Care Wire Coiler Name Role Phone Aliza Bain MD Primary Care Provider Nahid Hickman MD Unavailable [phone] Kiel Vasquez MD Unavailable Reason for Referral * Imaging (Emergency) - Closed Specialty Diagnoses / Procedures Referred By Meghana vigil Referred To Contact RADIOLOGY Procedures CT ABD+PEL W IV CON ONLY Cj Harris MD [address] [place] [address] Phone: tel: fax: Referral ID Status Reason Start Date Expiration Date Visits Re quested Visits Authorized [id number] Closed 10/02/2021 11/01/2022 1 1 Reason for Visit * Reason Comments Syncope Encounter Details Date Type Department Care Team (Late st Contact Info) Description 10/02/2021 6:19 PM CDT - 10/03/2021 12:15 AM CDT Emergency [facility] Emergency Room [id number] [place] [id number] Cj Harris MD [address] [place] [id number] Red Smith MD,PHD [address] [place] [id number] Syncope Discharge Disposition: Transfer to Acute Care Hospital Social History Tobacco Use Types Packs/Day Years [...] Sign Reading Time Taken Comments Blood Pressure 170/63 10/03/2021 12:00 AM CDT Pulse 78 10/03/2021 12:00 AM CDT Temperature 36.4 ??C (97.5 ??F) 10/03/2021 12:00 AM C DT Respiratory Rate 30 10/03/2021 12:00 AM CDT Oxygen Saturation 100% 10/03/2021 12:00 AM CDT Inhaled Oxygen Concentration - - Weight 65.3 kg (144 lb) 10/02/2021 6:13 PM CDT Height 160 cm (5' 3 ) 10/02/2021 6:13 PM CDT Body Mass Index 25.51 10/02/2021 6:13 PM CDT documented in this encounter Medications at Time [...] (40 mg total) by mouth daily. dilTIAZem XR 120 MG 24 hr capsule Take 120 mg by mouth daily. 06/16/2021 10/04/2021 omeprazole 20 MG capsule Take 20 mg by mouth daily. 05/16/2021 10/04/2021 pyridostigmine 60 MG tabletIndications :Myasthenia gravis (CMS/HCC HHS/HCC) Take 0.5 tablets (30 mg total) by mouth 3 (three) times daily. 180 tablet 6 06/21/2021 10/04/2021 documented as of this encounter Consult Notes * Richard Salcedo MD - 10/02/2021 10:50 PM CDT [facility] GENERAL SURGERY CONSULT NOTE Zee Martinez 76-year-old female Date of Service: 10/02/2021 REASON FOR CONSULT: Splenic laceration CHIEF COMPLAINT: Abdominal pain HPI: The patient is a 76-year-old female with a past medical history past surgical history significant for A. fib, status post atrial ablation, currently anticoagulated with Eliquis, right upper lobelung cancer, status post right upper lobe lobectomy, hypertension, GERD, arthritis, status post partial hysterectomy, status post upper endoscopy, and status post colonoscopy who presented to the [facility] ED the evening of 10/02/2021 after having an syncopal episode in the setting of intermittent abdominal pain. In the ED the patient was found to be afebrile hemodynamically stable. The patient actually presented with hypertension with systolic blood pressures in the 140s to 160s. Upon work-up: WBC 6.9, H&H 7.9/24.8, platelets 229, lactic acid 2.5, INR 1.6, PT 17.3, chloride 107, bicarb 23.6, BUN 21, creatinine 1.1, and glucose 173. The patient underwent a CT abdomen pelvis with IV contrast which demonstrated a complex splenic laceration with a large amount of intraperitoneal blood. No definitive arterial contrast blush was noted. There is some hyperdense areas and a large amount of surrounding mixed density fluid involving the entire circumference around the spleen. Over the course of the patient's ED stay her blood pressures began to downtrend with her systolic blood pressures running in the1 teens to 120s. Based upon the CT findings, two 20 gauge IVs were placed in the bilateral antecubital fossa's. Kcentra and 2 units of packed red blood cells were administered. Furthermore, one pack of FFP was also administered. To provide a more durable source of access a right IJ triple- lumen wasplaced by the anesthesia team in the ED. The patient notes she was in her usual state of health until 10/01/2021. She notes she began to experience intermittent left upper quadrant abdominal pain which radiated to the left shoulder. The patient does note she has recently undergone an upper endoscopy and colonoscopy on 09/29/[address] Lim at [facility] in [place], [place]. The patient restarted her Eliquis on 09/30/2021. This evening while sitting at the dinner table the patient began to have abdominal pain and subsequently lost consciousness. Per the family she was unconscious for less than 5 minutes. Per the patient, she last ate at approximately 10:30 am. Her last dose of Eliquis was this morning. PMH: Past Medical History: Diagnosis Date ??? Lung cancer (CMS/HCC) PSH: Past Surgical History: Procedure Laterality Date ??? ANKLE FRACTURE SURGERY right ??? HYSTERECTOMY partial ??? THORACOTOMY,MAJOR,EXPLOR/BIOPSY Right upper ??? TONSILLECTOMY ALL: Allergies Allergen Reactions ??? Penicillins Hives MEDS: Current: Current Facility-Administered Medications: ??? norepinephrine (LEVOPHED) 4 mg in dextrose 5 % 250 mL infusion (ADULT), 0.5- 60 mcg/min, Intravenous, Continuous, Red Smith MD,PHD ??? sodium chloride 0.9% infusion, , Intravenous, Continuous, Red Smith MD,PHD ??? sodium chloride 0.9% infusion, 250 mL, Intravenous, Continuous, Red Smith MD,PHD Current Outpatient Medications: ??? apixaban 5 MG tablet, Take 5 mg by mouth 2 (two) times daily., Disp: , Rfl: ??? aspirin EC (ASPIRIN EC) 81 MG tablet, Take 81 mg by mouth daily., Disp: , Rfl: ??? calcium carbonate-vitamin D (OYSTER SHELL CALCIUM-VITAMIN D) 500-200 MG-UNIT Tab, Take 1 tabletby mouth daily., Disp: , Rfl: ??? Cyanocobalamin 100 MCG Tab, Take 100 mcg by mouth daily., Disp: , Rfl: ??? dilTIAZem CD 120 MG 24 hr capsule, , Disp: , Rfl: ??? dilTIAZem XR 120 MG 24 hr capsule, Take 120 mg by mouth daily., Disp: , Rfl: ??? hydroCHLOROthiazide 25 MG tablet, , Disp: , Rfl: ??? magnesium oxide 250 MG tablet, , Disp: , Rfl: ??? Olmesartan Medoxomil 40 MG Tab, Take 40 mg by mouth daily., Disp: , Rfl: ??? omeprazole 20 MG capsule, , Disp: , Rfl: ??? pyridostigmine 60 MG tablet, Take 0.5 tablets (30 mg total) by mouth 3 (three) times daily., Disp: 180 tablet, Rfl: 6 Social History Socioeconomic History ??? Marital status: Spouse name: Not on file ??? Number of children: Not on file ??? Years of education: Not on file ??? Highest education level: Not on file Occupational History ??? Not on file Tobacco Use ??? Smoking status: Former Smoker Packs/day: 0.50 Years: 40.00 Pack years: 20.00 Types: Cigarettes Quit date: 2001 Years since quittin.3 ??? Smokeless tobacco: Never Used Substance and Sexual Activity ??? Alcohol use: Yes Comment: occasional use- mixed drinks or wine ??? Drug use: Never ??? Sexual activity: Not on file Other Topics Concern ??? Not on file Social History Narrative ??? Not on file Social Determinants of Health Financial Resource Strain: Not on file Food Insecurity: Not on file Transportation Needs: Not on file Physical Activity: Not on file Stress: Not on file Social Connections: Not on file Intimate Partner Violence: Not on file Family History Problem Relation Name Age of Onset ??? Hypertension Mother ??? Heart Disease Mother ??? Other (TIA) Mother ??? Hypertension Father ??? Heart Disease Father REVIEW OF SYSTEMS: Review of Systems Constitutional: Negative for chills and fever. Gastrointestinal: Positive for abdominal pain and nausea. Negative for vomiting. Neurological: Positive for syncope. PHYSICAL EXAM: Blood pressure (!) 148/49, pulse 72, temperature 97.4 ??F (36.3 ??C), resp. rate 23, height 5' 3 (1.6 m), weight 65.3 kg (144 lb), SpO2 100 %. Body mass index is 25.51 kg/m??. Physical Exam Vitals reviewed. Constitutional: Appearance: She is ill-appearing. She is not toxic-appearing or diaphoretic. HENT: Head: Normocephalic and atraumatic. Neck: Comments: Right IJ TLC Cardiovascular: Rate and Rhythm: Normal rate and regular rhythm. Heart sounds: Normal heart sounds. Pulmonary: Effort: Pulmonary effort is normal. No respiratory distress. Breath sounds: Normal breath sounds. No wheezing. Abdominal: General: There is no distension. Palpations: Abdomen is soft. There is no mass. Tenderness: There is abdominal tenderness. There is no guarding or rebound. Hernia: No hernia is present. Skin: Coloration: Skin is pale. Skin is not jaundiced. Neurological: General: No focal deficit present. Mental Status: She is alert and oriented to person, place, and time. Psychiatric: Mood and Affect: Mood normal. Behavior: Behavior normal. Thought Content: Thought content normal. Judgment: Judgment normal. LABS: Recent Labs Lab 10/02/21 1815 WBC 6.9 RBC 2.70* HGB 7.9* HCT 24.8* NA 138 K 3.7 CL 107 CO2 23.6 AGAP 7.4 BUN 21* CR 1.10* BUNCREATININ 19.1 GFRNON 48* GFR 56* GLU 173* CA 9.0 TP 6.8 ALB 3.7 TBIL 0.3 ALKP 81 AST 14* ALT 16 LIPASE 164 Recent Labs Lab 10/02/21 1815 10/02/21 2120 INR 1.6 1.4 IMAGING: Radiology Results (Last 48 hours) 10/02/[address] ABD+PEL W IV CON ONLY Final result Impression: IMPRESSION: 1. High-grade splenic rupture. Recommend general surgical consultation. Ordered By: CJ HARRIS Interpreted By: Katelyn Parsons, 10/02/2021 7:19 PM 10/02/21 1844 XR CHEST PORTABLE Final result Impression: IMPRESSION: No acute cardiopulmonary disease. Ordered By: CJ HARRIS Interpreted By: Katelyn Parsons, 10/02/2021 6:53 PM IMPRESSION: The patient is a 76-year-old female with a past medical history past surgical history significant for A. fib, status post atrial ablation, currently anticoagulated with Eliquis, right upper lobe lungcancer, status post right upper lobe lobectomy, hypertension, GERD, arthritis, status post partial h ysterectomy, status post upper endoscopy, and status post colonoscopy who presented to the [facility] ED the evening of 10/02/2021 after having an syncopal episode in the setting of intermittent abdominal pain. Based upon history, physical exam, lab work, and cross-sectional imaging the patient appears to be presenting with sequela and abdominal pain secondary to a high-grade splenic laceration. The patient's history is significant for a recent colonoscopy on 09/29/2021 and the reinitiation of her anticoagulation on 09/30/2021. At this time the patient is afebrile and hemodynamically stable. She is alert and oriented. Her abdomen is soft and mildly distended. She has noteworthy right upper quadrant tenderness, but no rebound or rigidity. In light of the limited critical care capabilities at this overall hospital it would be prudent to transfer the patient to a higher level of care for further management. PLAN: -Transfer to tertiary level [facility] -N.p.o. -Telemetry -Trend H&H -Balanced blood product resuscitation -Maintain 2 large-bore antecubital fossa IVs -Serial abdominal exams -Pressor support as needed Thank you for the consult and for allowing me to participate in the care of this patient. If you have any further questions, please feel free to contact me. RICHARD SALCEDO MD 10/02/2021 documented in this encounter ED Notes * Yocasta Contreras RN - 10/03/2021 3:34 AM CDT FFP unit # [id number] would not scan due to expiration date. Called blood bank and confirmed expiration date is correct, they verified the expiration date of 10/03/21 and time on bag. Instructed that the bag is safe to transfuse. Verified patient information and blood bag information with TUNDE Childs. Vitals documented, other documentation for blood product administration documented. ?? Start time 8 Stop time 232 * Yocasta Contreras RN - 10/03/2021 12:11 AM CDT Patient left with [facility] - had supervisor cold rolling ride along with patient and stated they did not need an RN to go at this time. Patient left with 2 units of PRBC infusing at 75 mL/hr each * Yocasta Contreras RN - 10/02/2021 11:50 PM CDT FFP unit # [id number] would not scan due to expiration date. Called blood bank and confirmed expiration date is correct, they verified the expiration date of 10/03/21 and time on bag. Instructed that the bag is safe to transfuse. Verified patient information and blood bag information with TUNDE Childs. Vitals documented, other documentation for blood product administration documented. Start time 8 Stop time 2350 * Red Smith MD,PHD - 10/02/2021 10:23 PM CDT Signed out to me pending a CT of the abdomen and pelvis. The patient CT of the abdomen and pelvis reveals a high-grade splenic laceration. I immediately consulted surgery who recommended transfer. Given patient's anticoagulated status, PCC was administered for reversal of the Eliquis. Patient was also crossmatched and ultimately transfused. I discussed the patient with the [facility] transfer center,the patient was accepted by Dr. Finley for transfer, though he requested the patient be transferred with blood products on hand. Given this request, there was considerable delay obtaining EMS transportation given that the available transport services were not allowed to transport patients with blood. Air transport was not available due to weather. While waiting for transportation, the patient's blood pressure worsened, her mentation declined, and she appeared more ill and pale. I updated surgery, communicating my concern that the patient was not hemodynamically stable for transfer. I requested an in person evaluation by surgery given their insistence that the patient should be transferred in her current clinical condition. Anesthesia and the OR team was called to come in. Anesthesia placed a triple- lumen central line. General surgery, both Dr. Salcedo and Dr. Chavez continued to recommend that the patient be transferred in her condition. Critical care time time (40 minutes) spent evaluating, managing, documenting and providing care to the critical patient. This involved decision making of high complexity to assess, manipulate, and support vital organ system failure and/or to prevent further life threatening deterioration of the patient's condition. Time spent included being at the bedside, reviewing test results, discussing the case with staff, documenting the medical record and time spent with family members; excluding any procedures. CLINICAL IMPRESSION Splenic laceration Hemorrhagic shock DISPOSITION Transfer to [facility] for services not available at this facility (surgical critical care) and at the request of the general surgery consult team.. The patient has a medical condition that requires further evaluation and treatment for stabilization. The nature of the condition,risks of transfer, and reason for transfer were discussed with the patient and staff at the receiving facility. The patient has had a medical screening examination and has been stabilized to the bestof my ability given the resources available here, in the absence of services not available at this facility. Red Smith MD,PHD 10/03/212118 Red Smith MD,PHD 10/03/212121 * Cj Harris MD - 10/02/2021 6:40 PM CDT Chief Complaint Chief Complaint Patient presents with ??? Syncope History of Present Illness This is a 76 year old female with history of atrial fibrillation, chronic anticoagulation, myasthenia, and hypertension who presents for evaluation of syncopal episode and abdominal pain. Patient had an EGD and colonoscopy performed last week by Dr. Lim at [facility]. She develop ed left side abdominal pain on Sunday after eating a meal. She has been having this intermittent pain that is located LLQ, LUQ and she is also having radiating pain to left shoulder. Tonight while sitting at dinner table, Patient states she started to have abdominal pain and then she passed out. Family reported that patient slumped over in her chair and she was unconscious for less than 5 minutes. Patient denies chest pain, nausea, sob, or headache. She restarted on Eliquis on Sunday after herprocedure. She denies passing in blood in her stool. She reports having episode of syncope once before during episode of afib. She has had ablation performed. Syncope This is a new problem. The current episode started less than 1 hour ago. She lost consciousness fora period of 1 to 5 minutes. Associated with: abdominal pain. Associated symptoms include abdominal pain. Pertinent negatives include chest pain, diaphoresis, fever, light-headedness and palpitations.Her past medical history is significant for CVA and HTN. Medical History ALLERGIES: Allergies Allergen Reactions ??? [...] mcg by mouth daily. Doc Abstract dilTIAZem CD 120 MG 24 hr capsule 06/16/21 Doc Abstract dilTIAZem XR 120 MG 24 [...] by mouth 3 (three) times daily. 06/21/21 Kris Amado MD PAST MEDICAL HISTORY: Past Medical History: Diagnosis Date ??? Lung cancer (CMS/HCC) PAST SURGICAL HISTORY: Past Surgical History: Procedure Laterality Date ??? ANKLE FRACTURE SURGERY right ??? HYSTERECTOMY partial ??? THORACOTOMY,MAJOR,EXPLOR/BIOPSY Right upper ??? TONSILLECTOMY FAMILY HISTORY: Family [...] Systems Review of Systems Constitutional: Negative for diaphoresis and fever. HENT: Negative for rhinorrhea and sore throat. Respiratory: Negative for cough, shortness of breath and stridor. Cardiovascular: Positive for syncope. Negative for chest pain, palpitations and leg swelling. Gastrointestinal: Positive for abdominal pain. Negative for blood in stool and diarrhea. Genitourinary: Positive for flank pain. Negative for hematuria. Skin: Negative for color change and pallor. Neurological: Positive for syncope. Negative for light-headedness. All other systems reviewed and are negative. Physical Exam Filed Vitals: 10/02/21 1813 BP: (!) 162/59 Pulse: 75 Resp: 16 Temp: 96 ??F (35.6 ??C) TempSrc: Temporal SpO2: 100% Weight: 65.3 kg (144 lb) Height: 5' 3 (1.6 m) Physical Exam Vitals and nursing note reviewed. Constitutional: General: She is not in acute distress. Appearance: She is normal weight. HENT: Head: Normocephalic and atraumatic. Nose: No congestion or rhinorrhea. Mouth/Throat: Mouth: Mucous membranes are moist. Pharynx: Oropharynx is clear. Eyes: Extraocular Movements: Extraocular movements intact. Comments: Right eyelid drooping Cardiovascular: Rate and Rhythm: Normal rate and regular rhythm. Pulses: Normal pulses. Heart sounds: Normal heart sounds. Pulmonary: Effort: Pulmonary effort is normal. No respiratory distress. Breath sounds: Normal breath sounds. No stridor. No wheezing or rhonchi. Abdominal: General: Bowel sounds are normal. Distension: Diffuse, worse on left with guarding on left. Palpations: Abdomen is soft. Tenderness: There is abdominal tenderness. There is guarding. There is no rebound. Hernia: No hernia is present. Musculoskeletal: Cervical back: Normal range of motion. Neurological: General: No focal deficit present. Mental Status: She is alert and oriented to person, place, and time. Psychiatric: Mood and Affect: Mood normal. Thought Content: Thought content normal. Diagnostic Studies / Procedures ELECTROCARDIOGRAMS: No results found for this visit on 10/02/21. LABORATORY STUDIES: Results for orders placed or performed during the hospital encounter of 10/02/21 CBC W/DIFF AUTOMATED Result Value Ref Range WBC 6.9 4.4 - 11.0 x10'3/uL RBC 2.70 (L) 4.50 - 5.10 x10'6/uL HGB 7.9 (L) 12.3 - 15.3 G/DL HCT 24.8 (L) 35.9 - 44.6 % MCV 91.9 80.0 - 96.0 FL MCH 29.3 25.3 - 30.9 PG MCHC 31.9 31.0 - 34.1 G/DL RDW 13.8 12.4 - 15.1 % PLT 229 151 - 353 x10'3/uL MPV 11.2 9.6 - 12.0 FL RBC MORPHOLOGY NORMAL PLT MORPH. NORMAL WBC MORPHOLOGY NORMAL LYMPHOCYTES 25.5 15.8 - 45.0 % NEUTROPHILS 51.7 42.1 - 71.9 % MONOCYTES 21.5 (H) 5.7 - 12.5 % EOSINOPHILS 0.1 0.0 - 5.6 % BASOPHILS 0.3 0.0 - 1.3 % ABS. NEUTROPHILS 3.56 1.40 - 6.00 x10'3/uL IMMATURE GRANS 0.9 (H) 0.0 - 0.5 % ABS. LYMPHOCYTES 1.76 0.80 - 4.70 x10'3/uL COMPREHENSIVE METABOLIC PANEL Result Value Ref Range GLUCOSE 173 (H) 70 - 99 MG/DL BUN 21 (H) 7 - 18 MG/DL CREATININE S/P/B 1.10 (H) 0.55 - 1.02 MG/DL SODIUM 138 136 - 145 MMOL/L POTASSIUM 3.7 3.5 - 5.1 MMOL/L CHLORIDE S/P/B 107 100 - 108 MMOL/L CO2 23.6 21 - 32 MMOL/L CALCIUM 9.0 8.5 - 10.1 MG/DL BILIRUBIN TOTAL S/P/B 0.3 0.2 - 1.2 MG/DL TOTAL PROTEIN S/P/B 6.8 6.4 - 8.2 G/DL ALBUMIN S/P/B 3.7 3.4 - 5.0 G/DL AST 14 (L) 15 - 37 U/L ALT 16 14 - 55 U/L ALKALINE PHOSPHATASE S/P/B 81 50 - 136 U/L ANION GAP 7.4 5 - 15 MMOL/L BUN CREATININE RATIO 19.1 6 - 26 A/G RATIO 1.2 1.0 - 2.0 RATIO eGFR Non-Afr. Amer. 48 (L) >90 ML/MIN/1.73 M2 eGFR Afr. Amer. 56 (L) >90 ML/MIN/1.73 M2 LIPASE Result Value Ref Range LIPASE 164 73 - 393 UNITS/L TROPONIN, QUANT Result Value Ref Range TROPONIN I HIGH SENSITIVITY 8 <51 ng/L MAGNESIUM Result Value Ref Range MAGNESIUM 2.4 1.8 - 2.4 MG/DL IMAGING STUDIES XR CHEST PORTABLE Final Result by User, [email or web address] (10/02 1856) EXAMINATION: XR CHEST PORTABLE INDICATIONS: Syncope TECHNIQUE: Single portable view of the chest COMPARISON: None FINDINGS: A single frontal radiograph of the chest is obtained, and demonstrates clear lungs. The cardiomediastinum and bony thorax are unremarkable. Overlying EKG leads are seen. IMPRESSION: No acute cardiopulmonary disease. Ordered By: CJ HARRIS Interpreted By: Katelyn Parsons, 10/02/2021 6:[address] ABD+PEL W IV CON ONLY (Results Pending) ED Course / Medical Decision Making ED Course as of Oct 02 1908 Sun Oct 02, 2021 184 HGB(!): 7.9 [KH] 1899 Last hemoglobin 10 on 08/16/21 HGB(!): 7.9 [KH] 1907 I discussed case with Dr. Smith. He agrees to take over care. He will follow labs and imaging. [KH] ED Course User Index [KH] Cj Harris MD Clinical Impression Syncope (Primary) Anemia Disposition: Data Unavailable Cj Harris MD 10/02/211908 * Sudha Salinas RN - 10/02/2021 6:05 PM CDTSummary: syncope Passed out table. Became pale and sweaty then passed out. Did not fall. Pt states pain to L side, shoulder, chest, abd. Had EGD and colonoscopy on . 3 days ago. Nausea prior to syncope, no vomiting, no diarrhea, no fever. Syncope in June. Pt was in Afib. Had ablation in August. Hx of GERD documented in this encounter Plan of Treatment Upcoming Encounters Date Type Department Care Team (Late st Contact Info) Description 07/22/2024 11:40 AM [employer] Office Visit [facility] Multispecialty Care - [facility] [address], [address] [place] [address] Kris Amado MD [address] [place] [address] 10/16/2024 11:00 AM CDT Appointment [facility] [place] [address] Jimmy Morris MD [address] [facility]. [address] [place] [address] documented as of this encounter Procedures Procedure Name Priority Date/Time Associated Diagnosis Comments TRANSFUSE RED BLOOD CELLS STAT 10/02/2021 11:49 PM CDT TRANSFUSE RED BLOOD CELLS STAT 10/02/2021 11:30 PM CDT XR CHEST PORTABLE STAT 10/02/2021 10: 41 PM CDT TRANSFUSE FRESH FROZEN PLASMA STAT 10/02/2021 10:38 PM CDT ORDER FRESH FROZEN PLASMA STAT 10/02/2021 9:46 PM CDT TRANSFUSE RED BLOOD CELLS STAT 10/02/2021 9:31 PM CDT TRANSFUSE RED BLOOD CELLS STAT 10/02/2021 9:25 PM CDT PROTHROMBIN TIME, VENOUS STAT 10/02/2021 9:20 PM CDT ORDER FRESH FROZEN PLASMA STAT 10/02/2021 8:05 PM CDT TYPE & SCREEN STAT 10/02/2021 8:05 PM CDT LACTIC ACID STAT 10/02/2021 8:05 PM CDT ECG 12-LEAD Routine 10/02/2021 7:[address] ABD+PEL W CON STAT 10/02/2021 7:07 PM CDT LACTIC ACID STAT 10/02/2021 6:54 PM CDT XR CHEST PORTABLE STAT 10/02/2021 6:4 4 PM CDT PROTHROMBIN TIME, VENOUS STAT 10/02/2021 6:15 PM CDT COMPREHENSIVE METABOLIC PANEL STAT 10/02/2021 6:15 PM CDT CBC W/DIFF AUTOMATED STAT 10/02/2021 6:15 PM CDT TROPONIN, QUANT STAT 10/02/2021 6:15 PM CDT MAGNESIUM STAT 10/02/2021 6:15 PM CDT LIPASE STAT 10/02/2021 6:15 PM CDT documented in this encounter Results * TRANSFUSE RED BLOOD CELLS (10/03/2021 12:25 PM CDT) us Red Smith MD,PHD NURSING TREATMENT ORDERABL ES - BLOOD ADMIN Final Result * TRANSFUSE RED BLOOD CELLS (10/03/2021 12:25 PM CDT) Result Janine Smith MD,PHD NURSING TREATMENT ORDERABL ES - BLOOD ADMIN Final Result * TRANSFUSE RED BLOOD CELLS, 2 Units (10/03/2021 12:25 PM CDT) Result Janine Smith MD,PHD NURSING TREATMENT ORDERABL ES - BLOOD ADMIN Final Result * TRANSFUSE RED BLOOD CELLS (10/02/2021 11:42 PM CDT) Result Janine Smith MD,PHD NURSING TREATMENT ORDERABL ES - BLOOD ADMIN Final Result * TRANSFUSE RED BLOOD CELLS, 2 Units (10/02/2021 11:42 PM CDT) Result Janine Smiht MD,PHD NURSING TREATMENT ORDERABL ES - BLOOD ADMIN Final Result * TRANSFUSE RED BLOOD CELLS (10/02/2021 11:02 PM CDT) Result Janine Smith MD,PHD NURSING TREATMENT ORDERABL ES - BLOOD ADMIN Final Result * TRANSFUSE FRESH FROZEN PLASMA (10/02/2021 11:02 PM CDT) Result Janine Smith MD,PHD NURSING TREATMENT ORDERABL ES - BLOOD ADMIN Final Result * TRANSFUSE FRESH FROZEN PLASMA, 1 Units (10/02/2021 11:02 PM CDT) Result Janine Smith MD,PHD NURSING TREATMENT ORDERABL ES - BLOOD ADMIN Final Result * XR CHEST PORTABLE (10/02/2021 10:41 PM CDT) Anatomical Region Laterality Modality Chest Radiographic Montse ging 10/03/2021 8:47 AM CDT Impressions 10/03/2021 8:51 AM CDT IMPRESSION: 1. ??Interval placement of right IJ venous catheter with tip projected in region of distal SVC. No apparent pneumothorax. 2. ??Mild basilar fibrosis and atelectasis, similar to the prior study. No consolidation or volume loss. No large pleural effusion. Shallow inspiration. 3. ??Normal heart size and pulmonary vascularity. Mild atherosclerotic aorta. 4. ??Concur with preliminary report. Ordered By: RED SMITH Interpreted By: Ousmane Shaffer, 10/03/2021 8:47 AM Narrative 10/03/2021 8:51 AM CDT EXAMINATION: XR CHEST PORTABLE EXAM DATE/TIME: 10/02/2021 10:19 PM CLINICAL HISTORY: Central line placement. COMPARISON: 10/02/2021 portable chest radiograph performed earlier today. Procedure Note Monroe Shaffer MD - 10/03/2021 EXAMINATION: XR CHEST PORTABLE EXAM DATE/TIME: 10/02/2021 10:19 PM CLINICAL HISTORY: Central line placement. COMPARISON: 10/02/2021 portable chest radiograph performed earlier today. IMPRESSION: 1. Interval placement of right IJ venous catheter with tip projected inregion of distal SVC. No apparent pneumothorax. 2. Mild basilar fibrosis and atelectasis, similar to the prior study. Noconsolidation or volume loss. No large pleural effusion. Shallowinspiration. 3. Normal heart size and pulmonary vascularity. Mild atheroscleroticaorta. 4. Concur with preliminary report. Ordered By: RED SMITH Interpreted By: Ousmane Shaffer, 10/03/2021 8:47 AM us Red Smith MD,PHD GENERAL IMAGING Final Resu lt * ORDER FRESH FROZEN PLASMA, 1 Units (10/02/2021 9:46 PM CDT) UNITS ORDERED 1 10/02/2021 9:46 PM CDT [facility] BLOOD UNIT NUMBER [id number] 10/02/2021 11:05 PM CDT [facility] PRODUCT: FRESH PLASMA 10/02/2021 11:05 PM CDT [facility] UNIT DIVISION 00 10/02/2021 11:05 PM CDT [facility] BLOOD UNIT STATUS TRANSFUSED,FINAL 10/03/2021 3:36 AM CDT [facility] ISSUE DATE/TIME [id number] 022 3:36 AM CDT [facility] ABO/RH Unit AB NEG 10/03/2021 3:36 AM CDT [facility] ABO/RH UNIT ISBT CODE 2800 10/03/2021 3:36 AM CDT [facility] BLOOD UNIT EXPIRATION DATE [id number] 10/03/2021 3:36 AM CDT [facility] TRANSFUSION STATUS OK TO TRANSFUSE 10/02/2021 11:05 PM CDT [facility] 10/02/2021 9:46 PM CDT us Red Smith MD,PHD BLOOD BANK PRODUCT ORDERAB LES Final Result Performing Organization Address [facility] Co de Phone Number [facility] [address] [place] [address], [place] [phone] * (ABNORMAL) PROTIME/INR, VENOUS (10/02/2021 9:20 PM CDT) PROTIME 14.7(H) 9.1 - 12.4 SEC 10/02/2021 10:13 PM CDT [facility] INR 1.4 10/02/2021 10:13 PM CDT [facility] Comment: Recommend INR ranges for Oral Anticoagulant Therapy: Mechanical Cardiac Values 2.5-3.5 All others indication 2.0-3.0 10/02/2021 9:20 PM CDT us Red Smith MD,PHD LABORATORY Final Resu lt Performing Organization Address [facility]/ZIP Co de Phone Number [facility] [address] [place] [address], [place] [phone] * ORDER FRESH FROZEN PLASMA, 2 Units (10/02/2021 8:05 PM CDT) [facility] Signature UNITS ORDERED 2 10/02/2021 7:58 PM CDT [facility] BLOOD UNIT NUMBER [id number] 10/02/2021 9:49 PM CDT [facility] PRODUCT: FRESH PLASMA 10/02/2021 9:49 PM CDT [facility] UNIT DIVISION 00 10/02/2021 9:49 PM CDT [facility] BLOOD UNIT STATUS TRANSFUSED,FINAL 10/03/2021 3:36 AM CDT [facility] ISSUE DATE/TIME [id number] 3:36 AM CDT [facility] ABO/RH Unit AB NEG 10/03/2021 3:36 AM CDT [facility] ABO/RH UNIT ISBT CODE 2800 10/03/2021 3:36 AM CDT [facility] BLOOD UNIT EXPIRATION DATE [id number] 10/03/2021 3:36 AM CDT [facility] TRANSFUSION STATUS OK TO TRANSFUSE 10/02/2021 9:49 PM CDT [facility] BLOOD UNIT NUMBER [id number] 10/02/2021 9:49 PM CDT [facility] PRODUCT: FRESH PLASMA 10/02/2021 9:49 PM CDT [facility] UNIT DIVISION 00 10/02/2021 9:49 PM CDT [facility] BLOOD UNIT STATUS TRANSFUSED,FINAL 10/03/2021 3:36 AM CDT [facility] ISSUE DATE/TIME [id number] 3:36 AM CDT [facility] ABO/RH Unit AB NEG 10/03/2021 3:36 AM CDT [facility] ABO/RH UNIT ISBT CODE 2800 10/03/2021 3:36 AM CDT [facility] BLOOD UNIT EXPIRATION DATE [id number] 10/03/2021 3:36 AM CDT [facility] TRANSFUSION STATUS OK TO TRANSFUSE 10/02/2021 9:49 PM CDT [facility] 10/02/2021 8:05 PM CDT us Red Smith MD,PHD BLOOD BANK PRODUCT ORDERAB LES Final Result [facility] [address] [place] [address], [place] [phone] * TYPE & SCREEN (10/02/2021 8:05 PM CDT) UNITS ORDERED 8 10/02/2021 10:50 PM CDT [facility] ABO/RH O POSITIVE 10/02/2021 8:37 PM CDT [facility] ANTIBODY SCREEN NEGATIVE 9:02 PM CDT [facility] SAMPLE EXPIRATION 10/05/2021,2359 10/02/2021 8:37 PM CDT [facility] BLOOD UNIT NUMBER [id number] 10/02/2021 9:02 PM CDT [facility] PRODUCT: PC LEUKO PHERE BAG1 10/02/2021 9:02 PM CDT [facility] UNIT DIVISION 00 10/02/2021 9:02 PM CDT [facility] BLOOD UNIT STATUS TRANSFUSED,FINAL 10/03/2021 3:36 AM CDT [facility] ISSUE DATE/TIME [id number] 022 3:36 AM CDT [facility] PRODUCT CODE [id number] 10/03/2021 3:36 AM CDT [facility] ABO/RH Unit O POS 10/03/2021 3:36 AM CDT [facility] ABO/RH UNIT ISBT CODE 5100 10/03/2021 3:36 AM CDT [facility] BLOOD UNIT EXPIRATION DATE 10/03/2021 3:36 AM CDT [facility] TRANSFUSION STATUS OK TO TRANSFUSE 10/02/2021 9:08 PM CDT [facility] CROSSMATCH COMPATIBLE 10/02/2021 9:08 PM CDT [facility] BLOOD UNIT NUMBER [id number] 10/02/2021 9:02 PM CDT [facility] PRODUCT: PC LEUKO PHERE BAG1 10/02/2021 9:02 PM CDT [facility] UNIT DIVISION 00 10/02/2021 9:02 PM CDT [facility] BLOOD UNIT STATUS TRANSFUSED,FINAL 10/03/2021 3:36 AM CDT [facility] ISSUE DATE/TIME [id number] 022 3:36 AM CDT [facility] PRODUCT CODE [id number] 10/03/2021 3:36 AM CDT [facility] ABO/RH Unit O POS 10/03/2021 3:36 AM CDT [facility] ABO/RH UNIT ISBT CODE 5100 10/03/2021 3:36 AM CDT [facility] BLOOD UNIT EXPIRATION DATE [id number] 10/03/2021 3:36 AM CDT [facility] TRANSFUSION STATUS OK TO TRANSFUSE 10/02/2021 9:08 PM CDT [facility] CROSSMATCH COMPATIBLE 10/02/2021 9:08 PM CDT [facility] BLOOD UNIT NUMBER [id number] 10/02/2021 10:50 PM CDT [facility] PRODUCT: PC LEUKOPOOR 10/02/2021 10:50 PM CDT [facility] UNIT DIVISION 00 10/02/2021 10:50 PM CDT [facility] BLOOD UNIT STATUS TRANSFUSED,FINAL 10/03/2021 3:36 AM CDT [facility] ISSUE DATE/TIME [id number] 022 3:36 AM CDT [facility] PRODUCT CODE [id number] 10/03/2021 3:36 AM CDT [facility] ABO/RH Unit O POS 10/03/2021 3:36 AM CDT [facility] ABO/RH UNIT ISBT CODE 5100 10/03/2021 3:36 AM CDT [facility] BLOOD UNIT EXPIRATION DATE [id number] 10/03/2021 3:36 AM CDT [facility] TRANSFUSION STATUS OK TO TRANSFUSE 10/02/2021 10:50 PM CDT [facility] CROSSMATCH COMPATIBLE 10/02/2021 10:50 PM CDT [facility] BLOOD UNIT NUMBER [id number] 10/02/2021 10:50 PM CDT [facility] PRODUCT: PC LEUKOPOOR 10/02/2021 10:50 PM CDT [facility] UNIT DIVISION 00 10/02/2021 10:50 PM CDT [facility] BLOOD UNIT STATUS TRANSFUSED,FINAL 10/03/2021 3:36 AM CDT [facility] ISSUE DATE/TIME [id number] 022 3:36 AM CDT [facility] PRODUCT CODE [id number] 10/03/2021 3:36 AM CDT [facility] ABO/RH Unit O POS 10/03/2021 3:36 AM CDT [facility] ABO/RH UNIT ISBT CODE 5100 10/03/2021 3:36 AM CDT [facility] BLOOD UNIT EXPIRATION DATE [id number] 10/03/2021 3:36 AM CDT [facility] TRANSFUSION STATUS OK TO TRANSFUSE 10/02/2021 10:50 PM CDT [facility] CROSSMATCH COMPATIBLE 10/02/2021 10:50 PM CDT [facility] BLOOD UNIT NUMBER [id number] 10/02/2021 10:50 PM CDT [facility] PRODUCT: PC LEUKOPOOR 10/02/2021 10:50 PM CDT [facility] UNIT DIVISION 00 10/02/2021 10:50 PM CDT [facility] BLOOD UNIT STATUS UNIT RELEASED 10/03/2021 2:27 AM CDT [facility] TRANSFUSION STATUS OK TO TRANSFUSE 10/02/2021 10:50 PM CDT [facility] CROSSMATCH COMPATIBLE 10/02/2021 10:50 PM CDT [facility] BLOOD UNIT NUMBER [id number] 10/02/2021 10:50 PM CDT [facility] PRODUCT: PC LEUKO PHERE BAG2 10/02/2021 10:50 PM CDT [facility] UNIT DIVISION 00 10/02/2021 10:50 PM CDT [facility] BLOOD UNIT STATUS UNIT RELEASED 10/03/2021 2:27 AM CDT [facility] TRANSFUSION STATUS OK TO TRANSFUSE 10/02/2021 10:50 PM CDT [facility] CROSSMATCH COMPATIBLE 10/02/2021 10:50 PM CDT [facility] BLOOD UNIT NUMBER [id number] 10/02/2021 10:50 PM CDT [facility] PRODUCT: PC LEUKOPOOR 10/02/2021 10:50 PM CDT [facility] UNIT DIVISION 00 10/02/2021 10:50 PM CDT [facility] BLOOD UNIT STATUS UNIT RELEASED 10/03/2021 2:27 AM CDT [facility] TRANSFUSION STATUS OK TO TRANSFUSE 10/02/2021 10:50 PM CDT [facility] CROSSMATCH COMPATIBLE 10/02/2021 10:50 PM CDT [facility] BLOOD UNIT NUMBER [id number] 10/02/2021 10:50 PM CDT [facility] PRODUCT: PC LEUKOPOOR 10/02/2021 10:50 PM CDT [facility] UNIT DIVISION 00 10/02/2021 10:50 PM CDT [facility] BLOOD UNIT STATUS UNIT RELEASED 10/03/2021 2:27 AM CDT [facility] TRANSFUSION STATUS OK TO TRANSFUSE 10/02/2021 10:50 PM CDT [facility] CROSSMATCH COMPATIBLE 10/02/2021 10:50 PM CDT [facility] 10/02/2021 8:05 PM CDT Red Smith MD,PHD BLOOD BANK TEST ORDERABLES Final Result [facility] [address] [place] [address], * LACTIC ACID (10/02/2021 8:05 PM CDT) LACTIC ACID VENOUS 1.6 0.4 - 2.0 MMOL/L 10/02/2021 8:40 PM CDT [facility] 10/02/2021 8:05 PM CDT Cj Harris MD LABORATORY Final Result Performing Organization Address [facility] Co de Phone Number [facility] [address] [place] [address], * ECG 12 lead (10/02/2021 7:31 PM CDT) 10/02/2021 7:31 PM CDT Narrative [facility] ([facility]) RAD - 10/03/2021 7:46 AM CDT [facility] ? Test Date: ?2021-10-02 Pat Name: ? ZEE MARTINEZ ? Department: ?? 85 ? Room: ? EXAM 303 Gender: ? Female ? Disbursing Agent: ?? : ?[id number] ? Requested By: CJ Stoner Number: [id number] ? Reading MD: ?? Chris Reese ? Measurements Intervals ?[place] ? Rate: ? 67 ? P: ?96 [place]: ? 152 ?QRS: ?42 QRSD: ? 72 ? T: ?42 QT: ? 426 ? QTc: ?453 ? Interpretive Statements SINUS RHYTHM WITH SINUS ARRHYTHMIA No previous ECG available for comparison Procedure Note Chris Reese MD - 10/03/2021 [place] Test Date: 2021-10-02 Pat Name: ZEE MARTINEZ Department: 85 Room: EXAM 303 Gender: Female Disbursing Agent: : 1945 Requested By: CJ HARRIS Order Number: [id number] Reading MD: Chris Reese Measurements Intervals [place] Rate: 67 P: 96 [place]: 152 QRS: 42 QRSD: 72 T: 42 QT: 426 QTc: 453 Interpretive Statements SINUS RHYTHM WITH SINUS ARRHYTHMIA No previous ECG available for comparison us Cj Harris MD ECG ORDERABLES Final Result Performing Organization Address City/State/[facility] Co de Phone Number [facility] ([facility]) RAD * CT ABD+PEL W IV CON ONLY (10/02/2021 7:07 PM CDT) Anatomical Region Laterality Modality Abdomen Computed Tomogra phy 10/02/2021 7:19 PM CDT Impressions 10/02/2021 7:30 PM CDT IMPRESSION: 1. ?? High-grade splenic rupture. Recommend general surgical consultation. Ordered By: CJ HARRIS Interpreted By: Katelyn Parsons, 10/02/2021 7:19 PM Narrative 10/02/2021 7:30 PM CDT IMAGING STUDIES: CT ABD+PEL W CON ? DATE: 10/02/2021 6:50 PM HISTORY: Left lower quadrant abdominal pain. COMPARISON: None. CONTRAST: 50 mL of Isovue-370 Radiation dose reduction technique was utilized. FINDINGS: Multiple helically acquired CT images are obtained through the abdomen and pelvis following intravenous administration of contrast. Diffuse degenerative changes of the lumbar spine are seen. There is subsegmental atelectasis in the lung bases. The heart is grossly normal. Peripheral vascular calcifications are seen throughout the aorta. There are subcentimeter hypodensities within the liver too small to characterize. The gallbladder is normal. The pancreas and adrenals are unremarkable. There is a simple cyst within the left upper pole measuring 3.6 cm in diameter. There is a complex splenic laceration identified with mixed density in the region of the spleen. There is a large amount of blood intraperitoneally. There is no definite arterial contrast blush, but there is some hyperdense areas and a large amount of surrounding mixed density fluid involving the entire circumference around the spleen. The gallbladder is normal. The pancreas is normal. Large and small bowel loops are unremarkable. The urinary bladder is unremarkable. The anterior abdominal wall and subcutaneous fat is normal. Procedure Note Derrek Parsons MD - 10/02/2021 IMAGING STUDIES: CT ABD+PEL W CON DATE: 10/02/2021 6:50 PM HISTORY: Left lower quadrant abdominal pain. COMPARISON: None. CONTRAST: 50 mL of Isovue-370 Radiation dose reduction technique was utilized. FINDINGS: Multiple helically acquired CT images are obtained through theabdomen and pelvis following intravenous administration of contrast.Diffuse degenerative changes of the lumbar spine are seen. There issubsegmental atelectasis in the lung bases. The heart is grossly normal.Peripheral vascular calcifications are seen throughout the aorta. There are subcentimeter hypodensities within the liver too small tocharacterize. The gallbladder is normal. The pancreas and adrenals areunremarkable. There is a simple cyst within the left upper pole measuring3.6 cm in diameter. There is a complex splenic laceration identified with mixed density in theregion of the spleen. There is a large amount of blood intraperitoneally.There is no definite arterial contrast blush, but there is some hyperdenseareas and a large amount of surrounding mixed density fluid involving theentire circumference around the spleen. The gallbladder is normal. The pancreas is normal. Large and small bowel loops are unremarkable. The urinary bladder isunremarkable. The anterior abdominal wall and subcutaneous fat isnormal. IMPRESSION: 1. High-grade splenic rupture. Recommend general surgicalconsultation. Ordered By: CJ HARRIS Interpreted By: Katelyn Parsons, 10/02/2021 7:19 PM us Cj Harris MD CT Final Result * (ABNORMAL) LACTIC ACID (10/02/2021 6:54 PM CDT) LACTIC ACID VENOUS 2.5(HH) 0.4 - 2.0 MMOL/L 10/02/2021 7:24 PM CDT [facility] Comment: EKR CALLED CRITICAL RESULTS AT [id number] TO AND READ BACK BY VANESSA GRIFFITHS,ED AN ORDER FOR A REPEAT LACTIC ACID IS REQUIRED WITHIN 6 HOURS OF DIAGNOSIS ON A PATIENT WITH SEVERE SEPSIS. 10/02/2021 6:54 PM CDT Cj Harris MD LABORATORY Final Result [facility] [address] [place] [address], * XR CHEST PORTABLE (10/02/2021 6:44 PM CDT) Anatomical Region Laterality Modality Chest Radiographic Montse ging 10/02/2021 6:53 PM CDT Impressions 10/02/2021 6:54 PM CDT IMPRESSION: No acute cardiopulmonary disease. Ordered By: CJ HARRIS Interpreted By: Katelyn Parsons, 10/02/2021 6:53 PM Narrative 10/02/2021 6:54 PM CDT EXAMINATION: XR CHEST PORTABLE INDICATIONS: Syncope TECHNIQUE: Single portable view of the chest COMPARISON: None FINDINGS: A single frontal radiograph of the chest is obtained, and demonstrates clear lungs. The cardiomediastinum and bony thorax are unremarkable. Overlying EKG leads are seen. Procedure Note Derrek Parsons MD - 10/02/2021 EXAMINATION: XR CHEST PORTABLE INDICATIONS: Syncope TECHNIQUE: Single portable view of the chest COMPARISON: None FINDINGS: A single frontal radiograph of the chest is obtained, anddemonstrates clear lungs. The cardiomediastinum and bony thorax areunremarkable. Overlying EKG leads are seen. IMPRESSION: No acute cardiopulmonary disease. Ordered By: CJ HARRIS Interpreted By: Katelyn Parsons, 10/02/2021 6:53 PM Cj Harris MD GENERAL IMAGING Final Result * (ABNORMAL) PROTIME/INR, VENOUS (10/02/2021 6:15 PM CDT) [facility] PROTIME 17.3(H) 9.1 - 12.4 SEC 10/02/2021 8:21 PM CDT [facility] INR 1.6 10/02/2021 8:21 PM CDT [facility] Comment: Recommend INR ranges for Oral Anticoagulant Therapy: Mechanical Cardiac Values 2.5-3.5 All others indication 2.0-3.0 10/02/2021 6:15 PM CDT Red Smith MD,PHD LABORATORY Final Resu lt Performing Organization Address City/[facility]/ZIP Co de Phone Number [facility] [address] [place] [address], * MAGNESIUM (10/02/2021 6:15 PM CDT) [facility] MAGNESIUM 2.4 1.8 - 2.4 MG/DL 10/02/2021 6:48 PM CDT [facility] 10/02/2021 6:15 PM CDT Cj Harris MD LABORATORY Final Result Performing Organization Address City/[facility]/ZIP Co de Phone Number [facility] [address] [place] [address], [place] [phone] * TROPONIN, QUANT (10/02/2021 6:15 PM CDT) [facility] TROPONIN I HIGH SENSITIVITY 8 <51 ng/L 10/02/2021 6:53 PM CDT [facility] Comment: HIGH DOSES OF BIOTIN, TROPONIN-SPECIFIC AUTOANTIBODIES, AND ANTIBODY THERAPY CONTAINING HAMA MAY INTERFERE WITH THIS TEST RESULT. CORRELATION TO CLINICAL HISTORY AND PRESENTATION RECOMMENDED. 10/02/2021 6:15 PM CDT us Cj Harris MD LABORATORY Final Result Performing Organization Address [facility]/ZIP Co de Phone Number [facility] [address] [place] [address], [place] [phone] * LIPASE (10/02/2021 6:15 PM CDT) LIPASE 164 73 - 393 UNITS/L 10/02/2021 6:48 PM CDT [facility] 10/02/2021 6:15 PM CDT us Cj Harris MD LABORATORY Final Result Performing Organization Address [facility] Co de Phone Number [facility] [address] [place] [address], [place] [phone] * (ABNORMAL) COMPREHENSIVE METABOLIC PANEL (10/02/2021 6:15 PM CDT) GLUCOSE 173(H) 70 - 99 MG/DL 10/02/2021 6:48 PM CDT [facility] BUN 21(H) 7 - 18 MG/DL 10/02/2021 6:48 PM CDT [facility] CREATININE S/P/B 1.10(H) 0.55 - 1.02 MG/DL 10/02/2021 6:48 PM CDT [facility] SODIUM S/P/B 138 136 - 145 MMOL/L 10/02/2021 6:48 PM CDT [facility] POTASSIUM S/P/B 3.7 3.5 - 5.1 MMOL/L 10/02/2021 6:48 PM CDT [facility] CHLORIDE S/P/B 107 100 - 108 MMOL/L 10/02/2021 6:48 PM T [facility] CO2 23.6 21 - 32 MMOL/L 10/02/2021 6:48 PM T [facility] CALCIUM S/P/B 9.0 8.5 - 10.1 MG/DL 10/02/2021 6:48 PM T [facility] BILIRUBIN TOTAL S/P/B 0.3 0.2 - 1.2 MG/DL 10/02/2021 6:48 PM T [facility] TOTAL PROTEIN S/P/B 6.8 6.4 - 8.2 G/DL 10/02/2021 6:48 PM T [facility] ALBUMIN S/P/B 3.7 3.4 - 5.0 G/DL 10/02/2021 6:48 PM [facility] AST 14(L) 15 - 37 U/L 10/02/2021 6:48 PM [facility] ALT 16 14 - 55 U/L 10/02/2021 6:48 PM [facility] ALKALINE PHOSPHATASE S/P/B 81 50 - 136 U/L 10/02/2021 6:48 PM [facility] ANION GAP 7.4 5 - 15 MMOL/L 10/02/2021 6:48 PM [facility] BUN CREATININE RATIO 19.1 6 - 26 10/02/2021 6:48 PM [facility] A/G RATIO 1.2 1.0 - 2.0 RATIO 10/02/2021 6:48 PM [facility] EGFR NON-AFR. AMER. 48(L) >90 ML/MIN/1.7 3 M2 10/02/2021 6:48 PM CDT [facility] EGFR AFR. AMER. 56(L) >90 ML/MIN/1.7 3 M2 10/02/2021 6:48 PM CDT [facility] Comment: NOTE: eGFR is not calculated for patients <18 years of age. This is an estimated GFR (CKD EPI) and should not be used for calculating drug doses. 10/02/2021 6:15 PM CDT us Cj Harris MD LABORATORY Final Result [facility] [address] [place] [address], * (ABNORMAL) CBC W/DIFF AUTOMATED (10/02/2021 6:15 PM CDT) WBC 6.9 4.4 - 11.0 x10'3/uL 10/02/2021 6:44 PM CDT [facility] RBC 2.70(L) 4.50 - 5.10 x10'6/uL 10/02/2021 6:44 PM CDT [facility] HGB 7.9(L) 12.3 - 15.3 G/DL 10/02/2021 6:44 PM CDT [facility] HCT 24.8(L) 35.9 - 44.6 % 10/02/2021 6:44 PM CDT [facility] MCV 91.9 80.0 - 96.0 FL 10/02/2021 6:44 PM CDT [facility] MCH 29.3 25.3 - 30.9 PG 10/02/2021 6:44 PM CDT [facility] MCHC 31.9 31.0 - 34.1 G/DL 10/02/2021 6:44 PM CDT [facility] RDW 13.8 12.4 - 15.1 % 10/02/2021 6:44 PM CDT [facility] PLT 229 151 - 353 x10'3/uL 10/02/2021 6:44 PM CDT [facility] MPV 11.2 9.6 - 12.0 FL 10/02/2021 6:44 PM CDT [facility] RBC MORPHOLOGY NORMAL 10/02/2021 6:44 PM T [facility] PLT MORPH. NORMAL 10/02/2021 6:44 PM CDT [facility] WBC MORPHOLOGY NORMAL 10/02/2021 6:44 PM T [facility] LYMPHOCYTES % 25.5 15.8 - 45.0 % 10/02/2021 6:44 PM CDT [facility] NEUTROPHILS % 51.7 42.1 - 71.9 % 10/02/2021 6:44 PM CDT [facility] MONOCYTES % 21.5(H) 5.7 - 12.5 % 10/02/2021 6:44 PM T [facility] EOSINOPHILS 0.1 0.0 - 5.6 % 10/02/2021 6:44 PM CDT [facility] BASOPHILS 0.3 0.0 - 1.3 % 10/02/2021 6:44 PM CDT [facility] ABS. NEUTROPHILS 3.56 1.40 - 6.00 x10'3/uL 10/02/2021 6:44 PM CDT [facility] IMMATURE GRANS % 0.9(H) 0.0 - 0.5 % 10/02/2021 6:44 PM CDT [facility] ABS. LYMPHOCYTES 1.76 0.80 - 4.70 x10'3/uL 10/02/2021 6:44 PM CDT [facility] 10/02/2021 6:15 PM CDT Cj Harris MD LABORATORY Final Result [facility] [id number] [place] [address], [place] [phone] documented in this encounter Visit Diagnoses Diagnosis Syncope- Primary Syncope and collapse Splenic rupture Other diseases of spleen documented in this encounter Administered Medications Inactive Administered Medications - up to 3 most recent administrations Medication Order MAR Action Action Date Dose Rate Site iopamidol (ISOVUE-370) 76 % injection 50 mL 50 mL, Intravenous, IMG once as needed, Contrast, 1 dose, Starting on Sun10/02/21 at 1908, Until Sun10/02/21 at 1908 Given 10/02/2021 7:08 PM CDT 50 mLs Left Arm morphine injection 4 mg 4 mg, Intravenous, Once, 1 dose, On Sun10/02/21 at 1830 Given 10/02/2021 7:17 PM CDT 4 mg morphine injection 4 mg 4 mg, Intravenous, Once, 1 dose, On Sun10/02/21 at 2330 Given 10/02/2021 11:29 PM CDT 4 mg norepinephrine (LEVOPHED) 4 mg in dextrose 5 % 250 mL infusion (ADULT) 0.5-60 mcg/min (1.875-225 mL/hr, rounded to 1.88-225 mL/hr), Intravenous, Continuous, Starting on Sun10/02/21 at 2245, Until Sun10/03/21 at 0129, INITIAL RATE: 5 mcg/min TITRATE according to MAP: - If MAP is 60-65 ----- 2 mcg/min every 10 min - If MAP is 55-59 ----- 5 mcg/min every 5 min - If MAP is 50-54 ----- 5 mcg/min every 2 min - If MAP is LESS than 50 ------ 5 mcg/min every 1 min MAP Goal: MAP greater than or equal to 65 mmHg and SBP greater than or equal to 90 mmHg or HR greater than or equal to 60 bpm, MAXIMUM RATE: 60 mcg/min WEAN BY: 2 mcg/min every 2 minutes after a goal MAP > 65 for at least 3 consecutive readings NOTIFY PROVIDER if max rate of 60 mcg/min reached and/or SBP LESS than 90 mmHg or MAP LESS than 55 mmHg despite 3 upward titrations NOTIFY PROVIDER if SBP GREATER than 150 mmHg for 3 consecutive readings despite weaning rate. The order in which vasopressors are to be discontinued will be dictated by physician. RN to remove vial and bag from pyxis and attach vial to bag adapter. Both components need to be scanned. ondansetron (ZOFRAN) injection 4 mg 4 mg, Intravenous, Once, 1 dose, On Sun10/02/21 at 1830, IV push over 2-5 minutes. Given 10/02/2021 7:17 PM CDT 4 mg prothrombin complex concentrate (human) (KCENTRA) injection 2,000 Units 2,000 Units, Intravenous, Once, 1 dose, On [place] 10/02/21 at 2000, Infuse at 470.2 mLs per HOUR (Recommended infusion rate is 0.12 mL/kg/MIN with maximum rate of 8.4 mL/min or 504 mL/HOUR.) If re-dosing is needed, do not exceed max dose of 50 units/kg with 5,000 unit dose cap. New Bag 10/02/2021 8:23 PM CDT 2,000 Units sodium chloride 0.9% bolus infusion SOLN 1,000 mL 1,000 mL, Intravenous, Administer over 60 Minutes, Once, 1 dose, On Sun10/02/21 at 1830 New Bag 10/02/2021 7:17 PM CDT 1,000 mLs sodium chloride 0.9% infusion at 30 mL/hr, Intravenous, Continuous, Starting on Sun10/02/21 at 2000, Until Sun10/03/21 at 0129, KVO rate sodium chloride 0.9% infusion at 10 mL/hr, Intravenous, Continuous, Starting on Sun10/02/21 at 2200, Until Sun10/03/21 at 0129, Infuse at TKO rate sodium chloride 0.9% infusion at 10 mL/hr, Intravenous, Continuous, Starting on Sun10/02/21 at 2315, Until Sun10/03/21 at 0129, Infuse at TKO rate documented in this encounter Active and Recently Administered Medications Times are shown in CDT. Scheduled Medication Order 10/01/2021 10/02/2021 10/03/2021 morphine injection 4 mg (COMPLETED) 4 mg, Intravenous, Once, 1 dose, On 10/02/21 at 1830 1917 (Given - Provider: Eileen Contreras RN) morphine injection 4 mg (COMPLETED) 4 mg, Intravenous, Once, 1 dose, On 10/02/21 at 2330 2329 (Given - Provider: Eileen Contreras RN) ondansetron (ZOFRAN) injection 4 mg (COMPLETED) 4 mg, Intravenous, Once, 1 dose, On 10/02/21 at 1830, IV push over 2-5 minutes. 191 (Given - Provider: Eileen Contreras RN) prothrombin complex concentrate (human) (KCENTRA) injection 2,000 Units (COMPLETED) 2,000 Units, Intravenous, Once, 1 dose, On 10/02/21 at 2000, Infuse at 470.2 mLs per HOUR (Recommended infusion rate is 0.12 mL/kg/MIN with maximum rate of 8.4 mL/min or 504 mL/HOUR.) If re-dosing is needed, do not exceed max dose of 50 units/kg with 5,000 unit dose cap. 2022 (New Bag - Provider: Yocasta Contreras RN)2042 (Infusion Stop Time - Provider: Yocasta Contreras RN) sodium chloride 0.9% bolus infusion SOLN 1,000 mL (COMPLETED) 1,000 mL, Intravenous, Administer over 60 Minutes, Once, 1 dose, On Sun10/02/21 at 1830 1917 (New Bag - Provider: Yocasta Contreras RN)2115 (Infusion Stop Time - Provider: Yocasta Contreras RN) Continuous Medication Order 10/01/2021 10/02/2021 10/03/2021 norepinephrine (LEVOPHED) 4 mg in dextrose 5 % 250 mL infusion (ADULT) 0.5-60 mcg/min (1.875-225 mL/hr, rounded to 1.88-225 mL/hr), Intravenous, Continuous, Starting on Sun10/02/21 at 2245, Until Sun10/03/21 at 0129, INITIAL RATE: 5 mcg/min TITRATE according to MAP: - If MAP is 60-65 ----- 2 mcg/min every 10 min - If MAP is 55-59 ----- 5 mcg/min every 5 min - If MAP is 50-54 ----- 5 mcg/min every 2 min - If MAP is LESS than 50 ------ 5 mcg/min every 1 min MAP Goal: MAP greater than or equal to 65 mmHg and SBP greater than or equal to 90 mmHg or HR greater than or equal to 60 bpm, MAXIMUM RATE: 60 mcg/min WEAN BY: 2 mcg/min every 2 minutes after a goal MAP > 65 for at least 3 consecutive readings NOTIFY PROVIDER if max rate of 60 mcg/min reached and/or SBP LESS than 90 mmHg or MAP LESS than 55 mmHg despite 3 upward titrations NOTIFY PROVIDER if SBP GREATER than 150 mmHg for 3 consecutive readings despite weaning rate. The order in which vasopressors are to be discontinued will be dictated by physician. RN to remove vial and bag from pyxis and attach vial to bag adapter. Both components need to be scanned. 0013 (Return to [facility] net - Provider: Yocasta Contreras RN - Comment: ordered and removed to go with patient on transfer if she becomes less stable. no sent with patient) sodium chloride 0.9% infusion at 30 mL/hr, Intravenous, Continuous, Starting on Sun10/02/21 at 2000, Until Sun10/03/21 at 0129, KVO rate 2000 (Due) sodium chloride 0.9% infusion at 10 mL/hr, Intravenous, Continuous, Starting on Sun10/02/21 at 2200, Until Sun10/03/21 at 0129, Infuse at TKO rate 2200 (Due) sodium chloride 0.9% infusion at 10 mL/hr, Intravenous, Continuous, Starting on Sun10/02/21 at 2315, Until Sun10/03/21 at 0129, Infuse at TKO rate 2315 (Due) PRN Medication Order 10/01/2021 10/02/2021 10/03/2021 iopamidol (ISOVUE-370) 76 % injection 50 mL (COMPLETED) 50 mL, Intravenous, IMG once as needed, Contrast, 1 dose, Starting on [place] 10/02/21 at 1908, Until [place] 10/02/21 at 1908 1908 (Given - Provider: Fanny Garcia, RTR) documented in this encounter Care Teams Wire Coiler Relationship Specialty Start Date End Date Aliza Bain MD [address] [place] [address] PCP - General FAMILY PRACTICE 05/09/21 Nahid [place] MD [address] [facility] [address] [place] [address] PCP - ONCOLOGY HEMATOLOGY/ONCOLOGY 10/03/21 Kiel Vasquez MD [address] [facility] [address] [place] [phone] Consulting Physician CARDIOLOGY 10/03/21 documented as of this encounter
--- OUTSIDE RECORDS SUMMARY | 2024-07-01 00:27 | XMS_ITS | Encounter Summary ---
Author Organization [facility] - [facility] Address [facility] [facility] [place], [place] [id number] [place] [address] Care Team Providers Care Chief Dog License Inspector Name Role Phone Aliza Bain MD Primary Care Provider Reason for Referral * Surgical (Routine) - Closed Specialty Diagnoses / Procedures Referred By Contac t Referred To Contact VASCULAR SURGERY / Cardiology Diagnoses Bilateral carotid artery stenosis Kris Amado MD [address] [place] [address] Phone: tel: fax: Jimmy Morris MD [address] [facility]. [address] [place] [address] Phone: tel: fax: Referral ID Status Reason Start Date Expiration Date V isits Requested Visits Authorized [id number] Closed Specialty Services 09/26/2021 10/27/2022 1 1 Encounter Details Date Type Department Care Team (Late st Contact Info) Description 09/26/2021 Orders Only [facility] Medical Group Multispecialty Care - [facility] [address] [facility], [address] [place] [address] Kris Amado MD [address] [place] [address] Social History Tobacco Use Types [...] Contact Info) Description 07/22/2024 11:40 AM ASSISTANT DISTRICT ATTORNEY Office Visit [facility] Medical Group Multispecialty Care - [facility] [address] [facility], [address] [place] [address] Kris Amado MD [address] [place] [address] 10/16/2024 11:00 AM CDT Appointment [facility] [place] [address] Jimmy Morris MD Three [facility]. [address] [place] [address] Scheduled Referrals Name Type Priority Associated Diagnoses Orde r Schedule Ambulatory referral to Vascular Surgery ([facility]) Referral Routine Bilateral carotid artery stenosis Ordered: 09/26/2021 documented as of this encounter Visit Diagnoses Diagnosis Bilateral carotid artery stenosis- Primary Occlusion and stenosis of multiple and bilateral precerebral arteries without mention of cerebral infarction documented in this encounter Care Teams Chief Dog License Inspector Relationship Specialty Start Date End Date Aliza Bain MD [address] [place] [address] PCP - General FAMILY PRACTICE 05/09/21 documented as of this encounter
--- OUTSIDE RECORDS SUMMARY | 2024-07-01 00:27 | XMS_ITS | Encounter Summary ---
Author Organization [facility] Address [facility] [facility] [place] [address] [place] [address] Care Team Providers Care Bronc Breaker Name Role Phone Aliza Bain MD Primary Care Provider Encounter Details Date Type Department Care Team (Latest Contact Info) Description 06/01/2021 Travel Social History Tobacco Use Types Packs/Day [...] COVID-19? No / Unsure 06/01/2021 12:34 PM DIRECTOR OF NATIONAL SALES documented as of this encounter Plan of Treatment Upcoming Encounters Date Type Department Care Team (Late st Contact Info) Description 07/22/2024 11:40 AM DIRECTOR OF NATIONAL SALES Office Visit [facility] Medical Group Multispecialty Care - [facility] [address] [facility], [address] [place] [address] Kris Amado MD [address] [place] [address] 10/16/2024 11:00 AM CDT Appointment [facility] [address] [address] Jimmy Morris MD Three [facility]. [address] [place] [address] documented as of this encounter Visit Diagnoses Not on filedocumented in this encounter Care Teams Bronc Breaker Relationship Specialty Start Date End Date Aliza Bain MD [address] [place] [address] PCP - General FAMILY PRACTICE 05/09/21 documented as of this encounter
--- OUTSIDE RECORDS SUMMARY | 2024-07-01 00:27 | XMS_ITS | Encounter Summary ---
Author Organization [facility] Address [facility] [place] [address] [place] [address] Care Team Providers Care Diesel Mechanic Name Role Phone Aliza Bain MD Primary Care Provider Reason for Visit * Reason Comments Follow Up 6 week follow up for MG Encounter Details Date Type Department Care Team (Latest Contact Info) Description 06/21/2021 1:40 PM OIL TRUCK DRIVER Office Visit [facility] Medical Group Multispecialty Care - [address], [address] [place] [phone] Kris Amado MD [address] [place] [address] Follow Up (6 week follow up for MG ) Social History Tobacco Use Types Packs/Day Years Used Date Smoking Tobacco: Former Cigarettes 0.5 40 1 962 - 2002 Smokeless Tobacco: Never Tobacco Cessation:Counseling Given: No [...] COVID-19? No / Unsure 06/21/2021 1:54 PM OIL TRUCK DRIVER documented as of this encounter Last Filed Vital Signs Vital Sign Reading Time Taken Comments Blood Pressure 164/69 06/21/2021 2:10 PM OIL TRUCK DRIVER Pulse 63 06/21/2021 2:04 PM OIL TRUCK DRIVER Temperature 36.1 ??C (97 ??F) 06/21/2021 2:04 PM OIL TRUCK DRIVER Respiratory Rate 18 06/21/2021 2:04 PM OIL TRUCK DRIVER Oxygen Saturation 98% 06/21/2021 2:04 PM OIL TRUCK DRIVER Inhaled Oxygen Concentration - - Weight 67.7 kg (149 lb 3.2 oz) 06/21/2021 2:04 P M OIL TRUCK DRIVER Height 161.3 cm (5' 3.5 ) 06/21/2021 2:04 PM OIL TRUCK DRIVER Body Mass Index 26.02 06/21/2021 2:04 PM OIL TRUCK DRIVER documented in this encounter Progress Notes * Kris Amado MD - 06/21/2021 1:40 PM CST Chief Complaint: myasthenia HPI: We had the pleasure of seeing your patient Ms. Martinez in the clinic. She is here for history of ocular myasthenia. Since I last saw her, she had antibody testing. This was negative for both acetylcholine receptor antibody as well as PQ antibodies. She also had repetitive nerve stimulation which showed decrement with stimulation of the facial nerve. 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 She still has droopiness of the right eye. There is some fluctuation associated with it. She has on and off double vision. She has no new symptoms. She does have shortness of breath which is being managed by her armature winder repair and I suspect to be due to underlying atrial fibrillation. Review of Systems Gen:?denies??recent fever Eyes:?denies?double vision ENT:?denies?epistaxis Pulm:?denies??shortness of breath Cardiac:??denies??Chest pain Musc:??denies?back pain Heme:??denies??easy bruising Neuro: ??See HPI Current [...] 100 mcg by mouth daily. ??? dilTIAZem CD 120 MG 24 hr capsule ??? dilTIAZem XR 120 MG 24 hr capsule Take 120 mg by mouth daily. ??? hydroCHLOROthiazide 25 MG tablet ??? magnesium oxide 250 MG tablet ??? Olmesartan Medoxomil 40 MG Tab Take 40 mg by mouth daily. ??? omeprazole 20 MG capsule ??? pyridostigmine 60 MG tablet Take 0.5 tablets (30 mg total) by mouth 3 (three) times daily. 180 tablet 6 No current facility-administered medications for this visit. Filed Vitals: 06/21/21 1404 06/21/21 1410 BP: (!) 161/73 (!) 164/69 Pulse: 63 Resp: 18 Temp: 97 ??F (36.1 ??C) TempSrc: Temporal SpO2: 98% Weight: 67.7 kg (149 lb 3.2 oz) Height: 5' 3.5 (1.613 m) Past Medical History: Diagnosis Date ??? Lung cancer (CMS/HCC) Past Surgical History: Procedure Laterality Date ??? ANKLE FRACTURE SURGERY right ??? HYSTERECTOMY partial ??? THORACOTOMY,MAJOR,EXPLOR/BIOPSY Right upper ??? TONSILLECTOMY Family History Problem Relation Name Age of Onset ??? Hypertension Mother ??? Heart Disease Mother ??? Other (TIA) Mother ??? Hypertension Father ??? Heart Disease Father Social History Tobacco Use ??? Smoking status: Former Smoker Packs/day: 0.50 Years: 40.00 Pack years: 20.00 Types: Cigarettes Quit date: 2001 Years since quittin.0 ??? Smokeless tobacco: Never Used Substance Use Topics ??? Alcohol use: Yes Comment: occasional use- mixed drinks or wine ??? Drug use: Never ?? MENTAL STATUS: Patient was alert, awake and oriented x3, regards and follows commands. Normal language. ?? CRANIAL NERVES: II: normal funduscopic exam. Pupils were equal, round and reactive to light and accommodation. III, IV, : normal extraocular movements, fatigable right eye ptosis, some fatigability in ptosis of the left eye as well. V: Normal jaw closure and opening. VII: face was symmetric. Eye closure and lip closure were normal. ?? IX-X: palate elevates at midline. XI: normal symmetric shoulder shrug. XII: tongue was midline and strong. No fasciculations. ?? MOTOR: Normal strength 5/5 on MRC scale in the upper and lower extremities. Normal muscle tone. Fine finger movements were normal bilaterally. No pronator drift ? COORDINATION: Absent dysmetria on finger -nose -finger. No tremor. ?? GAIT: Normal stride and base. Normal heel, toe and could not do tandem gait. ?? REFLEXES: Normal 2+/4 in upper and lower extremities. Babinski sign was absent. Denney's negative. 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 It is not uncommon for ocular myasthenia patientsto be seronegative with the antibody initially. I have prescribed pyridostigmine 60 mg take half a tablet 3 times a day. I have noted to her that can cause abdominal cramps and diarrhea. Have asked her to use it as needed twice or thrice a day to help with her ocular symptoms. I did note to her that he does not treat myasthenia but does help with the symptoms of myasthenia. I discussed with her that some patients with ocular myasthenia can have generalization. During this time, patients can have slurred speech, difficulty chewing or swallowing, limb weakness. I have asked her that if she has these kind of symptoms to come to our ER right away. Depending upon her response to Mestinon, I may add prednisone in future. I will also repeat her labs for antibody testing but 6 months to 9 months from now. I will see her back in 4 months but she will keep me posted on her progress. Time spent: 30 total minutes reviewing records, history that was separately obtained, performing the exam, providing education to the patient/caregiver, ordering medicine and documenting in the medical record. KRIS AMADO MD TRUCK DRIVER documented in this encounter Plan of Treatment Upcoming Encounters Date Type Department Care Team (Late st Contact Info) Description 07/22/2024 11:40 AM OIL TRUCK DRIVER Office Visit [facility] Medical Group Multispecialty Care - [address], [address] [place] [address] Kris Amado MD [address] [place] [address] 10/16/2024 11:00 AM CDT Appointment [facility] [place] [address] Jimmy Morris MD [address] [facility]. [address] [place] [address] documented as of this encounter Visit Diagnoses Diagnosis Myasthenia gravis ([facility])- Primary Myasthenia gravis without exacerbation documented in this encounter Care Teams Diesel Mechanic Relationship Specialty Start Date End Date Aliza Bain MD [address] [place] [address] PCP - General FAMILY PRACTICE 05/09/21 documented as of this encounter
--- OUTSIDE RECORDS SUMMARY | 2024-07-01 00:27 | XMS_ITS | Encounter Summary ---
Author Organization [facility] Address [facility]6 [facility] [place] [address] [place] [address] Care Team Providers Care Retanned Leather Roller Name Role Phone Aliza Bain MD Primary Care Provider Reason for Visit * Reason Onset Date Comments Medication Information 07/26/2021 Encounter Details Date Type Department Care Team (Late st Contact Info) Description 07/26/2021 Telephone [facility] Medical Group Multispecialty Care - [facility] [address] [facility], [address] [place] [phone] Kris Amado MD [address] [place] [address] Medication Information Social History Tobacco Use Types Packs/Day Years [...] Progress Notes * Ashanti Dillard RN - 07/26/2021 4:11 PM CST Spoke with patient to let her know it was ok to stop medication. Also reminded patient to complete her MRI. ONTRACT MANAGER * Ashanti Dillard RN - 07/26/2021 2:08 PM CST Patient called in stating she feels this medication is aggravating her hernia pushing it up. It is also causing GI upset - acid reflux, stomach pains. Patient stated she ended up in ER for acid reflux and A-fib. Only able to eat baked potato or mashed potatoes. No improvement in eye. Please advise ONTRACT MANAGER * Munira Henderson - 07/26/2021 12:07 PM CST Patient is calling Dr. Patrick wayne regarding the medication Pyridostigmine BR 60 mg that he prescribed. Call patient to discuss [phone] ONTRACT MANAGER documented in this encounter Plan of Treatment Upcoming Encounters Date Type Department Care Team (Late st Contact Info) Description 07/22/2024 11:40 AM SUBCONTRACT MANAGER Office Visit [facility] Medical Group Multispecialty Care - [facility] [address] [facility], [address] [place] [phone] Kris Amado MD [address] [place] [address] 10/16/2024 11:00 AM CDT Appointment [facility] [address] [place] [id number] Jimmy Morris MD [address] [facility]. [address] [place], [place] [id number] documented as of this encounter Visit Diagnoses Not on filedocumented in this encounter Care Teams Retanned Leather Roller Relationship Specialty Start Date End Date Aliza Bain MD [address] [place] [address] PCP - General FAMILY PRACTICE 05/09/21 documented as of this encounter
--- OUTSIDE RECORDS SUMMARY | 2024-07-01 00:27 | XMS_ITS | Encounter Summary ---
Author Organization [facility] Address [facility] hospital6 [place] [address] [place] [address] Care Team Providers Care Accounts Receivable Assistant Name Role Phone Aliza Bain MD Primary Care Provider Reason for Visit * Reason Comments Weakness * Procedure (Routine) - Closed Specialty Diagnoses / Procedures Referred By Contact Referred To Contact NEUROMUSCULOSKELETAL MEDICIN E / NEUROLOGY Diagnoses Myasthenia gravis ([facility]) EMG Procedures EMG EMG Kris Amado MD [address] [place] [address] Phone: tel: fax:[phone] Kris Amado MD [address] [place] [address] Phone: tel:[phone] fax:[phone] Referral ID Status Reason Start Date Expiration Date Visits Re quested Visits Authorized [id number] Closed 06/01/2021 06/02/2022 1 1 Encounter Details Date Type Department Care Team (Late st Contact Info) Description 06/01/2021 1:00 PM EDUCATION INTERN Office Visit [facility] Medical Group Multispecialty Care - [address], [address] [place] [address] Kris Amado MD [address] [place] [phone] Weakness Social History Tobacco Use Types Packs/Day Years [...] COVID-19? No / Unsure 06/01/2021 12:34 PM EDUCATION INTERN documented as of this encounter Progress Notes * Kris Amado MD - 06/01/2021 1:00 PM CST emg visit ATION INTERN documented in this encounter Procedure Notes * Kris Amado MD - 06/01/2021 1:00 PM CSTAssociated Order(s): EMG Summary of findings Left facial motor NCS is normal Left ulnar motor NCS is normal Low-frequency repetitive stimulation of left facial nerve with recording from frontalis shows significant decrement. 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 I will bring the patient back to clinic for further discussion of treatment of ocular myasthenia. ATION INTERN documented in this encounter Plan of Treatment Upcoming Encounters Date Type Department Care Team (Late st Contact Info) Description 07/22/2024 11:40 AM EDUCATION INTERN Office Visit [facility] Medical Group Multispecialty Care - [facility] [address] [facility], [address] [place] [address] Kris Amado MD [address] [place] [address] 10/16/2024 11:00 AM CDT Appointment [facility] [address] [place] [address] [address] Jimmy Morris MD [address] [place] [address] documented as of this encounter Procedures Procedure Name Priority Date/Time Associated Diagnosis Comments EMG Routine 06/01/2021 4:32 PM EDUCATION INTERN Myasthenia gravis ([facility]) documented in this encounter Results * NCVS\EMG (Hosp Performed) (06/01/2021 4:32 PM EDUCATION INTERN) 06/01/2021 4:32 PM EDUCATION INTERN us Kris Amado MD NEUROLOGY ORDERABLES Sirena glendy Result [facility] documented in this encounter Visit Diagnoses Diagnosis Myasthenia gravis ([facility]) Myasthenia gravis without exacerbation documented in this encounter Care Teams Accounts Receivable Assistant Relationship Specialty Start Date End Date Aliza Bain MD [address] [place] [address] PCP - General FAMILY PRACTICE 05/09/21 documented as of this encounter
--- OUTSIDE RECORDS SUMMARY | 2024-07-01 00:27 | XMS_ITS | Encounter Summary ---
Author Organization [facility] Address [facility]6 [facility] [place] [address] [place] [address] Care Team Providers Care Lathe Puller Name Role Phone Aliza Bain MD Primary Care Provider Reason for Visit * Reason Onset Date Comments Appointment Request 09/27/2021 Encounter Details Date Type Department Care Team (Late st Contact Info) Description 09/27/2021 [facility]phone [facility] [address] [place] [address] Jimmy Morris MD [facility]. [facility] [address] [place] [address] Appointment Request Social History Tobacco Use Types Packs/Day Years [...] Progress Notes * Ashanti Leigh MA - 09/27/2021 9:16 AM CDT FYI * Hiral Deutsch MA - 09/27/2021 8:[address] Nguyen has referred Cassandra to see Dr. Morris for carotid stenosis. I called and spoke with Cassadnra about making an appt. with Dr. Morris. Cassandra said that she has seen Dr. Chaney in the past (about 2 years ago) and wishes to follow up with him. I will close the referral and let Dr. Nguyen's nurse know. documented in this encounter Plan of Treatment Upcoming Encounters Date Type Department Care Team (Late st Contact Info) Description 07/22/2024 11:40 AM PERMIT AGENT Office Visit [facility] Medical [facility] Multispecialty Care - [facility] [address] [facility], [address] [place] [address] Kris Amado MD [address] [place] [address] 10/16/2024 11:00 AM CDT Appointment [facility] [place] [address] Jimmy Morris MD Three [facility]. [address] [place] [address] documented as of this encounter Visit Diagnoses Not on filedocumented in this encounter Care Teams Lathe Puller Relationship Specialty Start Date End Date Aliza Bain MD [address] [place] [address] PCP - General FAMILY PRACTICE 05/09/21 documented as of this encounter
--- OUTSIDE RECORDS SUMMARY | 2024-07-01 00:27 | XMS_ITS | Encounter Summary ---
Author Organization [facility] Address [facility]6 [facility] [place] [address] [place] [address] Care Team Providers Care Development Educator Name Role Phone Aliza Bain MD Primary Care Provider Reason for Referral * Imaging (Routine) - Closed Specialty Diagnoses / Procedures Referred By Meghana vigil Referred To Contact RADIOLOGY Diagnoses Cerebrovascular accident (CVA) due to stenosis of middle cerebral artery, unspecified blood vessel laterality (CMS/HCC HHS/HCC) Myasthenia gravis (CMS/HCC HHS/HCC) Temporal arteritis (CMS/HCC HHS/HCC) Procedures MRA HEAD WWO CON Kris Amado MD [address] [place] [address] Phone: tel: fax: Referral ID Status Reason Start Date Expiration Date Visits Re quested Visits Authorized [id number] Closed 07/27/2021 08/27/2022 1 1 NUE AUDIT CLERK * Imaging (Routine) - Closed Specialty Diagnoses / Procedures Referred By Meghana vigil Referred To Contact RADIOLOGY Diagnoses Cerebrovascular accident (CVA) due to stenosis of middle cerebral artery, unspecified blood vessel laterality (CMS/HCC HHS/HCC) Myasthenia gravis (CMS/HCC HHS/HCC) Temporal arteritis (CMS/HCC HHS/HCC) Procedures MRI BRAIN WWO Kris Raines MD [address] [place] [address] Phone: tel: fax: Referral ID Status Reason Start Date Expiration Date Visits Re quested Visits Authorized [id number] Closed 07/27/2021 08/24/2022 1 1 NUE AUDIT CLERK Reason for Visit * Imaging (Routine) - Closed Specialty Diagnoses / Procedures Referred By Contac t Referred To Contact RADIOLOGY Diagnoses Cerebrovascular accident (CVA) due to stenosis of middle cerebral artery, unspecified blood vessel laterality ([facility]) Myasthenia gravis ([facility]) Temporal arteritis ([facility]) Procedures MRI BRAIN WWO CON Kris Amado MD [address] [place] [address] Phone: tel: fax: Referral ID Status Reason Start Date Expiration Date Visits Re quested Visits Authorized [id number] Closed 07/27/2021 08/24/2022 1 1 Encounter Details Date Type Department Care Team (Latest Contact Info) Description 08/25/2021 4:03 PM REVENUE AUDIT CLERK - 08/25/2021 11:59 PM REVENUE AUDIT CLERK Hospital Encounter [facility] [place] [address] Kris Amado MD [address] [place], [place] [id number] Discharge Disposition: Home or Self Care (Routine [...] Coronavirus/COVID-19? No / Unsure 08/25/2021 4:01 PM REVENUE AUDIT CLERK documented as of this encounter Medications at [...] 10/03/2021 pyridostigmine 60 MG tabletIndications :Myasthenia gravis (CMS/HCC HHS/HCC) Take 0.5 tablets (30 mg total) by mouth 3 (three) times daily. 180 tablet 6 06/21/2021 10/04/2021 documented as of this encounter Plan of Treatment Upcoming Encounters Date Type Department Care Team (Late st Contact Info) Description 07/22/2024 11:40 AM REVENUE AUDIT CLERK Office Visit [facility] Medical Group Multispecialty Care - [address], [address] [place] [phone] Kris Amado MD [address] [place] [address] 10/16/2024 11:00 AM CDT Appointment [facility] [address] [place] [address] Jimmy Morris MD Three [facility]. [address] [place] [address] documented as of this encounter Procedures Procedure Name Priority Date/Time Associated Diagnosis Comments MRA HEAD WWO CON Routine 08/25/2021 5:37 PM REVENUE AUDIT CLERK Cerebrovascular accident (CVA) due to stenosis of middle cerebral artery, unspecified blood vessel laterality (CMS/HCC HHS/HCC) Myasthenia gravis (CMS/HCC HHS/HCC) Temporal arteritis (CMS/HCC HHS/HCC) MRI BRAIN WWO CON Routine 08/25/2021 5:2 0 PM REVENUE AUDIT CLERK Cerebrovascular accident (CVA) due to stenosis of middle cerebral artery, unspecified blood vessel laterality (CMS/HCC HHS/HCC) Myasthenia gravis (CMS/HCC HHS/HCC) Temporal arteritis (CMS/HCC HHS/HCC) documented in this encounter Results * MRA HEAD WWO CON (08/25/2021 5:37 PM REVENUE AUDIT CLERK) Anatomical Region Laterality Modality Head Magnetic Resonan ce 08/28/2021 12:5 9 PM CDT Impressions 08/28/2021 1:04 PM CDT IMPRESSION: ===== 1. ??Moderate length at least moderate stenosis of the distal left vertebral artery with additional areas of stenosis and low flow included in [id number]-hp-[id number] on postcontrast imaging. ??Further evaluation of the cervical arterial vasculature with CTA or MRA recommended. 2. ??Low-grade short segment stenoses at the distal end of the right A1 segment and origin of left A1 segment of anterior cerebral arteries. 3. ??Low-grade short segment stenosis at origin of left MCA. Referred By: KRIS AMADO Interpreted By: Dexter Wang MD, 08/28/2021 12:59 PM Narrative 08/28/2021 1:04 PM CDT EXAMINATION: MRA head with and without contrast EXAM DATE/TIME: 08/25/2021 4:37 PM REASON FOR EXAM: ??headaches and ptosis See Comments to the Radiologist ?? Drooping of the right eye, headaches, dizziness for 6 months. ??History of lung cancer. COMPARISON: No prior MRA TECHNIQUE: 3-D [id number]-bh-shduhk imaging obtained of the intracranial arterial vasculature. Following this FL 3-D coronal acquisition of the intracranial vasculature was performed after uneventful intravenous administration of 13 cc Dotarem. ??Subsequent 3-D rotational MIP reconstructions of the anterior and posterior circulations are created on separate workstation for review. FINDINGS: There is prominent flow in the right vertebral artery with normal caliber throughout. ??Multisegmental areas of decreased contrast in the left vertebral artery included in [id number]-mj-[id number]. ??The noncontrast acquisition shows moderate length stenosis of the distal left vertebral artery. ??Further evaluation of the vertebral arteries with MRA or CTA may be of benefit. ??Basilar artery and posterior cerebral arteries are normal in caliber throughout without focal stenosis or aneurysmal dilatation. ??Bilateral internal carotid arteries are normal in caliber throughout without focal stenosis or aneurysmal dilatation. ??Minimal stenosis at the distal end of the right A1 segment. ??Minimal stenosis at the origin of the left A1 segment and left middle cerebral artery. ??Remainder bilateral middle cerebral arteries and anterior cerebral arteries are normal in caliber throughout without focal stenosis or aneurysmal dilatation. ??No intracranial vascular malformations appreciated. ===== Procedure Note Dexter Wang MD - 08/28/2021 EXAMINATION: MRA head with and without contrast EXAM DATE/TIME: 08/25/2021 4:37 PM REASON FOR EXAM: headaches and ptosis See Comments to the Radiologist Drooping of the right eye, headaches, dizziness for 6 months. History oflung cancer. COMPARISON: No prior MRA TECHNIQUE: 3-D rvvp-kf-rhghcc imaging obtained of the intracranialarterial vasculature. Following this FL 3-D coronal acquisition of theintracranial vasculature was performed after uneventful intravenousadministration of 13 cc Dotarem. Subsequent 3-D rotational MIPreconstructions of the anterior and posterior circulations are created onseparate workstation for review. FINDINGS: There is prominent flow in the right vertebral artery withnormal caliber throughout. Multisegmental areas of decreased contrast inthe left vertebral artery included in knymg-gx-bqty. The noncontrastacquisition shows moderate length stenosis of the distal left vertebralartery. Further evaluation of the vertebral arteries with MRA or CTA maybe of benefit. Basilar artery and posterior cerebral arteries are normalin caliber throughout without focal stenosis or aneurysmal dilatation.Bilateral internal carotid arteries are normal in caliber throughoutwithout focal stenosis or aneurysmal dilatation. Minimal stenosis at thedistal end of the right A1 segment. Minimal stenosis at the origin of theleft A1 segment and left middle cerebral artery. Remainder bilateralmiddle cerebral arteries and anterior cerebral arteries are normal incaliber throughout without focal stenosis or aneurysmal dilatation. Nointracranial vascular malformations appreciated. ===== IMPRESSION: ===== 1. Moderate length at least moderate stenosis of the distal leftvertebral artery with additional areas of stenosis and low flow includedin abiji-po-lixi on postcontrast imaging. Further evaluation of thecervical arterial vasculature with CTA or MRA recommended. 2. Low-grade short segment stenoses at the distal end of the right [id number] and origin of left A1 segment of anterior cerebral arteries. 3. Low-grade short segment stenosis at origin of left MCA. Referred By: KRIS AMADO Interpreted By: Dexter Wang MD, 08/28/2021 12:59 PM us Kris Amado MD MRI Final Res ult * MRI BRAIN WWO CON (08/25/2021 5:20 PM REVENUE AUDIT CLERK) Anatomical Region Laterality Modality Head Magnetic Resonan ce 08/28/2021 12:5 6 PM CDT Impressions 08/28/2021 12:58 PM CDT IMPRESSION: 1. ??No acute intracranial abnormalities. 2. ??Moderate atrophy and moderate to severe small vessel ischemic disease 3. ??Old lacunar infarct right frontal lobe. Referred By: KRIS AMADO Interpreted By: Dexter Wang MD, 08/28/2021 12:56 PM Narrative 08/28/2021 12:58 PM CDT EXAMINATION: MRI brain with/without contrast. EXAM DATE/TIME: 08/25/2021 4:37 PM REASON FOR EXAM: ??headaches and ptosis See Comments to the Radiologist ?? Right eye drooping, headaches and dizziness for 6 months. ??History of lung cancer and myasthenia gravis. COMPARISON: None TECHNIQUE: Multiplanar, multisequence imaging of the brain is obtained before and after uneventful intravenous administration of 13 cc Dotarem. FINDINGS: There is no abnormal increased signal on diffusion-weighted imaging to suggest an acute infarct. ??Ventricles are enlarged with prominent bilateral sulci. ??Numerous scattered FLAIR signal abnormalities are seen in the periventricular deep white matter distribution. ??No evidence of intracranial hemorrhage. ??Orbital contents unremarkable apart from lens extractions. ??Bilateral maxillary and ethmoid mucosal sinus disease most prominent in the right maxillary sinus. ??Visualized portion of parotid glands unremarkable. ??Probable old lacunar infarct in the periventricular deep white matter on the right. ??Sella and suprasellar regions unremarkable. ??No abnormal signal in the visualized cervical cord on T1 or FLAIR imaging. ??Following contrast administration there is no abnormal enhancement in the brain or leptomeninges. Procedure Note Dexter Wang MD - 08/28/2021 EXAMINATION: MRI brain with/without contrast. EXAM DATE/TIME: 08/25/2021 4:37 PM REASON FOR EXAM: headaches and ptosis See Comments to the Radiologist Right eye drooping, headaches and dizziness for 6 months. History oflung cancer and myasthenia gravis. COMPARISON: None TECHNIQUE: Multiplanar, multisequence imaging of the brain is obtainedbefore and after uneventful intravenous administration of 13 cc Dotarem. FINDINGS: There is no abnormal increased signal on diffusion-weightedimaging to suggest an acute infarct. Ventricles are enlarged withprominent bilateral sulci. Numerous scattered FLAIR signal abnormalitiesare seen in the periventricular deep white matter distribution. Noevidence of intracranial hemorrhage. Orbital contents unremarkable apartfrom lens extractions. Bilateral maxillary and ethmoid mucosal sinusdisease most prominent in the right maxillary sinus. Visualized portionof parotid glands unremarkable. Probable old lacunar infarct in theperiventricular deep white matter on the right. Sella and suprasellarregions unremarkable. No abnormal signal in the visualized cervical cordon T1 or FLAIR imaging. Following contrast administration there is noabnormal enhancement in the brain or leptomeninges. IMPRESSION: 1. No acute intracranial abnormalities. 2. Moderate atrophy and moderate to severe small vessel ischemicdisease 3. Old lacunar infarct right frontal lobe. Referred By: KRIS AMADO Interpreted By: Dexter Wang MD, 08/28/2021 12:56 PM Kris Amado MD MRI Final Res ult documented in this encounter Visit Diagnoses Diagnosis Cerebrovascular accident (CVA) due to stenosis of middle cerebral artery, unspecified blood vessel laterality ([facility]) Myasthenia gravis ([facility]) Myasthenia gravis without exacerbation Temporal arteritis ([facility]) Giant cell arteritis documented in this encounter Administered Medications Inactive Administered Medications - up to 3 most recent administrations Medication Order MAR Action Action Date Dose Rate Site gadoterate meglumine (DOTAREM) 7.5 MMOL/15ML injection 13 mL 13 mL, Intravenous, IMG once as needed, Contrast, 1 dose, Starting on Nadine 08/25/21 at 1721, Until Nadine 08/25/21 at 1721 Given 08/25/2021 5:21 PM REVENUE AUDIT CLERK 13 mLs Right Arm documented in this encounter Care Teams Development Educator Relationship Specialty Start Date End Date Aliza Bain MD [address] [place] [address] PCP - General FAMILY PRACTICE 05/09/21 documented as of this encounter
--- OUTSIDE RECORDS SUMMARY | 2024-07-01 00:27 | XMS_ITS | Encounter Summary ---
Author Organization [facility] Address [facility]6 [facility] [place] [address] [place] [address] Care Team Providers Care Relays Draftsperson Name Role Phone Aliza Bain MD Primary Care Provider Reason for Visit * Reason Onset Date Comments Returned Call 06/30/2021 Encounter Details Date Type Department Care Team (Late st Contact Info) Description 06/30/2021 Telephone [facility] Medical Group Multispecialty Care - [facility] [address] [facility], [address] [place] [phone] Kris Amado MD [address] [place] [address] Returned Call Social History Tobacco Use Types [...] COVID-19? No / Unsure 06/21/2021 1:54 PM BUSINESS DEVELOPMENT ENGINEER documented as of this encounter Progress Notes * Ashanti Leigh MA - 06/30/2021 3:34 PM CST Spoke to patient. She stated she just had a doppler of her neck arteries done yesterday through cardiology and states everything looked the same. She does not want to get her neck re imaged. She is also getting checked out at [facility] currently for AFIB. I asked her to call us back with any questions and updates NESS DEVELOPMENT ENGINEER * Tahira Hernandez - 06/30/2021 3:24 PM CST Pt called returning call from 's office. Please give Pt a call back to discuss [phone]. Ptstates that she is currently at [facility] ER. NESS DEVELOPMENT ENGINEER documented in this encounter Plan of Treatment Upcoming Encounters Date Type Department Care Team (Late st Contact Info) Description 07/22/2024 11:40 AM BUSINESS DEVELOPMENT ENGINEER Office Visit [facility] Medical Group Multispecialty Care - [facility] [address] [facility], [address] [place] [address] Kris Amado MD [address] [place] [address] 10/16/2024 11:00 AM CDT Appointment [facility] [address] Jimmy Morris MD Three [facility]. [address] [place] [address] documented as of this encounter Visit Diagnoses Not on filedocumented in this encounter Care Teams Relays Draftsperson Relationship Specialty Start Date End Date Aliza Bain MD [address] [place] [address] PCP - General FAMILY PRACTICE 05/09/21 documented as of this encounter
--- OUTSIDE RECORDS SUMMARY | 2024-07-01 00:28 | XMS_ITS | Encounter Summary ---
Author Organization [facility] Address [facility]6 [facility] [place] [address] [place] [address] Care Team Providers Care Retail Sales Representative Name Role Phone Unavailable Primary Care Provider Unavailabl e Encounter Details Date Type Department Care Team (Late st Contact Info) Description 05/07/2004 Abstract [facility] Emergency Room [address] [place], [place] [id number] Billie Blackwood MD [address], [place] [address] Social History Tobacco Use Types Packs/Day Years Used Date Smoking Tobacco: Never Assessed Comments Unknown Sex and Gender Information Value Date Recorded Sex Assigned at Not on file Legal Sex Female 6:29 PM CDT Gender Identity Not on file Sexual Orientation Not on file documented as of this encounter Plan of Treatment Upcoming Encounters Date Type Department Care Team (Late st Contact Info) Description 07/22/2024 11:40 AM SUPERVISOR FILTRATION Office Visit [facility] Medical Group Multispecialty Care - [facility] [address] [facility], [address] [place] [phone] Kris Amado MD [address] [place] [address] 10/16/2024 11:00 AM CDT Appointment [facility] [place] [address] Jimmy Morris MD [address] [place] [address] documented as of this encounter Visit Diagnoses Not on filedocumented in this encounter
--- OUTSIDE RECORDS SUMMARY | 2024-07-01 00:28 | XMS_ITS | Encounter Summary ---
Author Organization [facility] Address [facility]6 [facility] [place] [address] [place] [address] Care Team Providers Care Tar Worker Name Role Phone Aliza Bain MD Primary Care Provider Encounter Details Date Type Department Care Team (Latest Contact Info) Description 05/09/2021 3:15 PM CLINICAL DIRECTOR - 05/09/2021 11:59 PM CLINICAL DIRECTOR Hospital Encounter [facility] [address] [place], [place] [address] Kris Amado MD 3 [place] [address] Discharge Disposition: Home or Self Care (Routine [...] COVID-19? No / Unsure 05/09/2021 1:28 PM CLINICAL DIRECTOR documented as of this encounter Medications at [...] tablet (40 mg total) by mouth daily. magnesium oxide 250 MG tablet 10/03/2021 omeprazole 40 MG capsule Take 1 capsule by mouth daily. 02/17/2021 06/21/2021 documented as of this encounter Plan of Treatment Upcoming Encounters Date Type Department Care Team (Late st Contact Info) Description 07/22/2024 11:40 AM CLINICAL DIRECTOR Office Visit [facility] Multispecialty Care - [facility] [address] [facility], [address] [place] [address] Kris Amado MD 3 [place] [address] 10/16/2024 11:00 AM CDT Appointment [facility] [place] [address] Jimmy Morris MD Three [facility]. [address] [place] [address] documented as of this encounter Procedures Procedure Name Priority Date/Time Associated Diagnosis Comments MISCELLANEOUS LAB TEST Routine 3:48 PM CLINICAL DIRECTOR Myasthenia gravis ([facility]) MISCELLANEOUS LAB TEST Routine 3:48 PM CLINICAL DIRECTOR Myasthenia gravis ([facility]) SED RATE, ERYTHROCYTE (ESR) Routine 05/09/2021 3:48 PM CLINICAL DIRECTOR Temporal arteritis (CMS/HCC HHS/HCC) C-REACTIVE PROTEIN Routine 05/09/2021 3: 48 PM CLINICAL DIRECTOR Temporal arteritis (CMS/HCC HHS/HCC) documented in this encounter Results * (ABNORMAL) C-REACTIVE PROTEIN (05/09/2021 3:48 PM CLINICAL DIRECTOR) Pathologist [facility] C-REACTIVE PROTEIN 0.51(H) <0.29 mg/dL 05/09/2021 6:17 PM CLINICAL DIRECTOR [facility] 05/09/2021 3:48 PM CLINICAL DIRECTOR Kris Amado MD LABORATORY Final Res ult Performing Organization Address City/[facility]/ZIP Co de Phone Number [facility] [address] [place] [address], [place] [phone] * SED RATE, ERYTHROCYTE (ESR) (05/09/2021 3:48 PM CLINICAL DIRECTOR) Pathologist [facility] ESR 16 <30 MM/HR 05/09/2021 6:52 PM CLINICAL DIRECTOR [facility] Comment:Testing performed on [employer]cor iSED. 05/09/2021 3:48 PM CLINICAL DIRECTOR Kris Amado MD LABORATORY Final Res ult [facility] [address] [place] [address], [place] [phone] * MISCELLANEOUS LAB TEST (05/09/2021 3:48 PM CLINICAL DIRECTOR) Pathologist [facility] TEST NAME: [id number] VOLTAGE GATED CALCIUM(VGCC) P/G TYPE AB 05/10/2021 10:56 AM CLINICAL DIRECTOR [facility] SPECIMEN TYPE SERUM/1ML 05/10/2021 10:56 AM CLINICAL DIRECTOR [facility] TEST RESULT: Flexitest 1 05/24/2021 11:30 PM CLINICAL DIRECTOR [employer] [facility]ER[facility]EL [facility]OCK Comment: Flexitest 1 TESTS RESULTS--------UNITS--REF. RANGE--- VGCC Type P/Q Ab ?<30 ? pmol/L ??<30 Test performed by [facility] ? [address], ? [place] [address] ? Duct Layer: Leslie Dodd MD,PHD,MAURY Test Reported by [facility], [facility], [address] [place] [address] Slade Claire M.D., Ph.D., Director of Laboratories , [facility] [id number] 05/09/2021 3:48 PM CLINICAL DIRECTOR Kris Amado MD LABORATORY Final Res ult [facility] [place] [id number] [place], [place] , [facility] [address] [place] [address], [place] [phone] * MISCELLANEOUS LAB TEST (05/09/2021 3:48 PM CLINICAL DIRECTOR) Pathologist [facility] TEST NAME: Korey MYASTENIA GRAVIS PANEL 3 05/10/2021 11:[address] [facility] SPECIMEN TYPE SERUM/2ML 05/10/2021 11:[address] [facility] TEST RESULT: Flexitest 1 05/20/2021 5:07 PM CLINICAL DIRECTOR [employer] DAVID [place]OCK Comment: Flexitest 1 TESTS RESULTS--------UNITS--REF. RANGE--- Acetylcholine Rec Bind Ab ? <0.30 ? nmol/L ?? Reference Ranges for Acetylcholine Receptor Binding Antibody: Negative: < or =0.30 nmol/L Equivocal: ??0.31-0.49 nmol/L Positive: > or =0.50 nmol/L Acetylcholine Rec Bloc Ab ? <15 ? <15 Units: ??% Inhibition Acetylcholine Rec Mod Ab ? 20 ? <32% INHIBITION Units: ??% Inhibition This test was developed and its analytical performance characteristics have been determined by [facility]. It has not been cleared or approved by FDA. This assay has been validated pursuant to the CLIA regulations and is used for clinical purposes. Striated Muscle Ab Screen ?NEGATIVE ? NEGATIVE This test was developed and its analytical performance characteristics have been determined by [facility]. It has not been cleared or approved by [facility]. This assay has been validated pursuant to the CLIA regulations and is used for clinical purposes. Test performed by [facility] ? [address], ? [place] [address] ? Duct Layer: Leslie Dodd MD,PHD,MAURY Test Reported by [employer] [place], [facility], [address] [place], [place] Slade Claire M.D., Ph.D., Director of Laboratories , [facility] [id number] 05/09/2021 3:48 PM CLINICAL DIRECTOR us Kris Amado MD LABORATORY Final Res ult [place] [id number] [place], [place] , [place] [phone] [facility] [address] [place] [address], [place] [phone] documented in this encounter Visit Diagnoses Diagnosis Myasthenia gravis ([facility]) Myasthenia gravis without exacerbation Temporal arteritis ([facility]) Giant cell arteritis documented in this encounter Care Teams Tar Worker Relationship Specialty Start Date End Date Aliza Bain MD [address] [place] [address] PCP - General FAMILY PRACTICE 05/09/21 documented as of this encounter
--- OUTSIDE RECORDS SUMMARY | 2024-07-01 00:28 | XMS_ITS | Encounter Summary ---
Author Organization [facility] Address [facility]6 [place] [address] [place] [address] Care Team Providers Care Rope Silica Machine Operator Name Role Phone Unavailable Primary Care Provider Unavailabl e Encounter Details Date Type Department Care Team (Late st Contact Info) Description 09/06/1996 Abstract [facility] CONVERSION [address] [place], [place] [id number] , Generic Conversion, Social History Tobacco Use Types Packs/Day Years [...] st Contact Info) Description 07/22/2024 11:40 AM PROFESSOR OF PRACTICE Office Visit [facility] Multispecialty Care - [facility] [address] [address] [facility], [address] [place] [address] Kris Amado MD 3 [place] [address] 10/16/2024 11:[address] [facility] [place] [address] Jimmy Morris MD Three [facility]. [address] [place], [place] [id number] documented as of this encounter Visit Diagnoses Not on filedocumented in this encounter
--- OUTSIDE RECORDS SUMMARY | 2024-07-01 00:28 | XMS_ITS | Encounter Summary ---
Author Organization [facility] Address Critical access hospital6 [facility] [place] [address] [place] [address] Care Team Providers Care Forestry Patrolman Name Role Phone Unavailable Primary Care Provider Unavailabl e Encounter Details Date Type Department Care Team (Late st Contact Info) Description 01/05/1999 Abstract [facility] CONVERSION [address] [place], [place] [phone] , Generic Conversion, Social History Tobacco Use [...] st Contact Info) Description 07/22/2024 11:40 AM FILLING SEPARATOR Office Visit [facility] Multispecialty Care - [facility] [address] [facility], [address] [place] [address] Kris Amado MD 3 [place] [address] 10/16/2024 11:00 AM CDT Appointment [facility] [place] [address] Jimmy Morris MD Three [facility]. [address] [place], [place] [id number] documented as of this encounter Visit Diagnoses Not on filedocumented in this encounter
--- OUTSIDE RECORDS SUMMARY | 2024-07-01 00:28 | XMS_ITS | Encounter Summary ---
Author Organization [facility] Address [facility]6 [facility] [address] [place] [address] Care Team Providers Care Lining Parts Sewer Name Role Phone Unavailable Primary Care Provider Unavailabl e Encounter Details Date Type Department Care Team (Late st Contact Info) Description 10/24/1994 Abstract [facility] CONVERSION [address] [place], [place] [phone] , Generic Conversion, Social History Tobacco Use [...] st Contact Info) Description 07/22/2024 11:40 AM CUSTOMER EXPERIENCE CONSULTANT Office Visit [facility] Multispecialty Care - [facility] [address] [facility], [address] [place] [address] Kris Amado MD 3 [place] [address] 10/16/2024 11:00 AM CDT Appointment [facility] [place] [address] Jimmy Morris MD Three [facility]. [address] [place], [place] [phone] documented as of this encounter Visit Diagnoses Not on filedocumented in this encounter
--- OUTSIDE RECORDS SUMMARY | 2024-07-01 00:28 | XMS_ITS | Encounter Summary ---
Author Organization [facility] Address [facility] [place] [address] [place] [address] Care Team Providers Care Granulating Blender Name Role Phone Aliza Bain MD Primary Care Provider Reason for Referral * Imaging (Routine) - Closed Specialty Diagnoses / Procedures Referred By Meghana vigil Referred To Contact RADIOLOGY Diagnoses Cerebrovascular accident (CVA) due to stenosis of middle cerebral artery, unspecified blood vessel laterality (CMS/HCC HHS/HCC) Myasthenia gravis (CMS/HCC HHS/HCC) Temporal arteritis (CMS/HCC HHS/HCC) Procedures MRA HEAD WWO CON Kris Amado MD 3 [place] [address] Phone: tel: fax: Referral ID Status Reason Start Date Expiration Date Visits Re quested Visits Authorized [id number] Closed 07/27/2021 08/27/2022 1 1 [place] ASSISTANT STORE MANAGER * Imaging (Routine) - Closed Specialty Diagnoses / Procedures Referred By Meghana vigil Referred To Contact RADIOLOGY Diagnoses Cerebrovascular accident (CVA) due to stenosis of middle cerebral artery, unspecified blood vessel laterality (CMS/HCC HHS/HCC) Myasthenia gravis (CMS/HCC HHS/HCC) Temporal arteritis (CMS/HCC HHS/HCC) Procedures MRI BRAIN WWO Kris Raines MD [address] [place] [address] Phone: tel: fax: Referral ID Status Reason Start Date Expiration Date Visits Re quested Visits Authorized [id number] Closed 07/27/2021 08/24/2022 1 1 [place] ASSISTANT STORE MANAGER Reason for Visit * Reason Comments New Patient issues w/ right eye drooping Encounter Details Date Type Department Care Team (Latest Contact Info) Description 05/09/2021 2:00 PM RETAIL ASSISTANT STORE MANAGER Office Visit [facility] Multispecialty Care - [facility] [address], [address] [place] [address] Kris Amado MD 3 [place] [address] New Patient (issues w/ right eye drooping ) Social History Tobacco Use Types Packs/Day [...] COVID-19? No / Unsure 06/21/2021 1:54 PM RETAIL ASSISTANT STORE MANAGER documented as of this encounter Last Filed Vital Signs Vital Sign Reading Time Taken Comments Blood Pressure 140/70 05/09/2021 1:43 PM RETAIL ASSISTANT STORE MANAGER Pulse 85 05/09/2021 1:43 PM RETAIL ASSISTANT STORE MANAGER Temperature 36.2 ??C (97.1 ??F) 05/09/2021 1:43 PM CS T Respiratory Rate 16 05/09/2021 1:43 PM RETAIL ASSISTANT STORE MANAGER Oxygen Saturation 98% 05/09/2021 1:43 PM RETAIL ASSISTANT STORE MANAGER Inhaled Oxygen Concentration - - Weight 66 kg (145 lb 8 oz) 05/09/2021 1:43 PM CS T Height 161.3 cm (5' 3.5 ) 05/09/2021 1:43 PM RETAIL ASSISTANT STORE MANAGER Body Mass Index 25.37 05/09/2021 1:43 PM RETAIL ASSISTANT STORE MANAGER documented in this encounter Progress Notes * Kris Amado MD - 05/09/2021 2:00 PM CSTAddended by: KRIS AMADO on: 07/27/2021 01:35 PM Modules accepted: Orders [place] ASSISTANT STORE MANAGER * Kris Amado MD - 05/09/2021 2:00 PM CST Chief Complaint: ptosis HPI: We had the pleasure of seeing Ms. Martinez in the clinic but she is accompanied by her . Historyis obtained from both of them and from review of records. She is here because she has ptosis of theright eye. She notes that this has been going on for a couple of months. It gets worse in the evening. She has hard time reading and becomes blurry. She denies any difficulty chewing or swallowing. She denies any weakness. She denies any respiratory issues. She denies any falls or near falls. 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 Her next CAT scan is in May. She also gets headache worse especially in the right temporal region. She has no jaw claudication. There isno thunderclap features with it. She has no headaches waking her up at night or unemployment specialist. She denies any other focal logical deficits. Current Outpatient Medications Medication Sig Dispense Refill [...] 40 mg by mouth daily. ??? omeprazole 40 MG capsule Take 1 capsule by mouth daily. No current facility-administered medications for this visit. Filed Vitals: 05/09/21 1343 BP: 140/70 Pulse: 85 Resp: 16 Temp: 97.1 ??F (36.2 ??C) TempSrc: Temporal SpO2: 98% Weight: 66 kg (145 lb 8 oz) Height: 5' 3.5 (1.613 m) Past [...] Types: Cigarettes Quit date: 2001 Years since quittin.9 ??? Smokeless tobacco: Never Used Substance Use Topics ??? Alcohol use: Yes Comment: occasional use- mixed drinks or wine ??? Drug use: Never MENTAL STATUS: Patient was alert, awake and oriented x3, regards and follows commands. Normal language. CRANIAL NERVES: II: normal funduscopic exam. Pupils were equal, round and reactive to light and accommodation. III, IV, : normal extraocular movements, fatigable right eye ptosis, some fatigability in ptosis of the left eye as well. V: Normal jaw closure and opening. VII: face was symmetric. Eye closure and lip closure were normal. IX-X: palate elevates at midline. XI: normal symmetric shoulder shrug. XII: tongue was midline and strong. No fasciculations. MOTOR: Normal strength 5/5 on MRC scale in the upper and lower extremities. Normal muscle tone. Fine finger movements were normal bilaterally. No pronator drift COORDINATION: Absent dysmetria on finger -nose -finger. No tremor. GAIT: Normal stride and base. Normal heel, toe and could not do tandem gait. REFLEXES: Normal 2+/4 in upper and lower extremities. Babinski sign was absent. Denney's negative. Impression and Plan: In summary Ms. Martinez has right eye fatigable ptosis [with some ptosis on fatigable testing on the left eye] in the setting of small cell carcinoma of the lung and temporal headaches. For further evaluation, I will do repetitive nerve stimulation of the right facial nerve [with recording from frontalis]. In addition I will send for myasthenia panel [facility] to [facility]. PQ antibody to [facility] as well. To rule out temporal arteritis, I will do ESR and CRP. To rule out any structural lesion causing theptotic eye, headaches I will do MRI of the brain without contrast and MRA neck with and without contrast. I have asked her to keep the appointment with her telegraph lineman to make sure that the cancer s tatus information. I will see her back in 6 weeks to go over these results. Time spent: 60 total minutes reviewing records, history that was separately obtained, performing the exam, providing education to the patient/caregiver, ordering medicine and documenting in the medical record. KRIS AMADO MD [place] ASSISTANT STORE MANAGER documented in this encounter Plan of Treatment Upcoming Encounters Date Type Department Care Team (Late st Contact Info) Description 07/22/2024 11:40 AM RETAIL ASSISTANT STORE MANAGER Office Visit [facility] Multispecialty Care - [facility] [address] [facility], [address] [place] [address] Kris Amado MD [address] [place] [address] 10/16/2024 11:00 AM CDT Appointment [facility] [place] [address] Jimmy Morris MD Three [facility]. [address] [place], [place] [address] documented as of this encounter Results * MRA HEAD WWO CON (08/25/2021 5:37 PM RETAIL ASSISTANT STORE MANAGER) Anatomical Region Laterality Modality Head Magnetic Resonan ce 08/28/2021 12:5 9 PM CDT Impressions 08/28/2021 1:04 PM CDT IMPRESSION: ===== 1. 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 ??Further evaluation of the [...] cancer. COMPARISON: No prior MRA TECHNIQUE: 3-D ohjc-ae-jgdced imaging obtained of the intracranial arterial vasculature. [...] in the left vertebral artery included in pgepi-fp-eeqo. ??The noncontrast acquisition shows moderate length stenosis [...] cancer. COMPARISON: No prior MRA TECHNIQUE: 3-D miuj-kp-xsoccs imaging obtained of the intracranialarterial vasculature. Following [...] contrast inthe left vertebral artery included in whtxy-cb-wmqe. The noncontrastacquisition shows moderate length stenosis of [...] areas of stenosis and low flow includedin dgnak-pu-agir on postcontrast imaging. Further evaluation of thecervical arterial vasculature with CTA or MRA recommended. 2. Low-grade short segment stenoses at the distal end of the right C9arhaqzp and origin of left A1 segment of anterior cerebral arteries. 3. Low-grade short segment stenosis at origin of left MCA. Referred By: KRIS AMADO Interpreted By: Dexter Wang MD, 08/28/2021 12:59 PM us Kris Amado MD MRI Final Res ult * MRI BRAIN WWO CON (08/25/2021 5:20 PM RETAIL ASSISTANT STORE MANAGER) Anatomical Region Laterality Modality Head Magnetic Resonan [...] By: Dexter Wang MD, 08/28/2021 12:56 PM us Kris Amado MD MRI Final Res ult * NCVS\EMG (Hosp Performed) (06/01/2021 4:32 PM RETAIL ASSISTANT STORE MANAGER) 06/01/2021 4:32 PM RETAIL ASSISTANT STORE MANAGER Kris Amado MD NEUROLOGY ORDERABLES Sirena l Result [facility] RAD * (ABNORMAL) C-REACTIVE PROTEIN (05/09/2021 3:48 PM RETAIL ASSISTANT STORE MANAGER) C-REACTIVE PROTEIN 0.51(H) <0.29 mg/dL 05/09/2021 6:17 PM RETAIL ASSISTANT STORE MANAGER [facility] 05/09/2021 3:48 PM RETAIL ASSISTANT STORE MANAGER Kris Amado MD LABORATORY Final Res ult Performing Organization Address City/[facility]/ZIP Co de Phone Number [facility] [address] [place] [address], [place] [phone] * SED RATE, ERYTHROCYTE (ESR) (05/09/2021 3:48 PM RETAIL ASSISTANT STORE MANAGER) Pathologist [facility] ESR 16 <30 MM/HR 05/09/2021 6:52 PM RETAIL ASSISTANT STORE MANAGER [facility] Comment:Testing performed on [employer] iSED. 05/09/2021 3:48 PM RETAIL ASSISTANT STORE MANAGER Kris Amado MD LABORATORY Final Res ult [facility] [address] [place] [address], [place] [phone] * MISCELLANEOUS LAB TEST (05/09/2021 3:48 PM RETAIL ASSISTANT STORE MANAGER) TEST NAME: [id number] VOLTAGE GATED CALCIUM(VGCC) P/G TYPE AB 05/10/2021 10:56 AM RETAIL ASSISTANT STORE MANAGER [facility] SPECIMEN TYPE SERUM/1ML 05/10/2021 10:56 AM RETAIL ASSISTANT STORE MANAGER [facility] TEST RESULT: Flexitest 1 05/24/2021 11:30 PM RETAIL ASSISTANT STORE MANAGER [employer] DAVID LOCK Comment: Flexitest 1 TESTS RESULTS--------UNITS--REF. RANGE--- VGCC Type P/Q Ab ?<30 ? pmol/L ??<30 Test performed by [facility] ? [address], ? [place] [address] ? Social Services: Leslie Dodd MD,PHD,MAURY Test Reported by Joni Thompsony, [facility], [address] [place], [place] Slade Claire M.D., Ph.D., Director of Laboratories , [facility] [id number] 05/09/2021 3:48 PM RETAIL ASSISTANT STORE MANAGER us Kris Amado MD LABORATORY Final Res ult [employer] [facility] [address] [place], [place] , [facility] [address] [place] [address], [place] [phone] * MISCELLANEOUS LAB TEST (05/09/2021 3:48 PM RETAIL ASSISTANT STORE MANAGER) Pathologist [facility] TEST NAME: [id number] PARISHENIA GRAVIS PANEL 3 05/10/2021 11:18 AM [facility] SPECIMEN TYPE SERUM/2ML 05/10/2021 11:18 AM [facility] TEST RESULT: Tesst 1 05/20/2021 5:07 PM [facility] [employer] [facility] DAVID LOCK Comment: Flexitest 1 TESTS RESULTS--------UNITS--REF. [...] analytical performance characteristics have been determined by [employer] [facility]. It has not been cleared or approved by [facility]. This assay has been validated pursuant to the CLIA regulations and is used for clinical purposes. Striated Muscle Ab Screen ?NEGATIVE ? NEGATIVE This test was developed and its analytical performance characteristics have been determined by [employer] [facility]. It has not been cleared or approved by FDA. This assay has been validated pursuant to the CLIA regulations and is used for clinical purposes. Test performed by [facility] ? [address], ? [place] [address] ? Social Services: Leslie Dodd MD,PHD,MAURY Test Reported by Jacoby Thompson, [facility], [address] [place], [place] Slade Claire M.D., Ph.D., Director of Laboratories , [facility] [id number] 05/09/2021 3:48 PM RETAIL ASSISTANT STORE MANAGER us Kris Amado MD LABORATORY Final Res ult [employer] [facility] [address] [place], [place] , [place] [phone] [facility] [address] [place], [place] [address], [place] [phone] documented in this encounter Visit Diagnoses Diagnosis Cerebrovascular accident (CVA) due to stenosis of middle cerebral artery, unspecified blood vessel laterality ([facility] HHS/HCC)- Primary Myasthenia gravis ([facility]) Myasthenia gravis without exacerbation Temporal arteritis ([facility]) Giant cell arteritis Cerebrovascular accident (CVA) due to stenosis of middle cerebral artery, unspecified blood vessel laterality ([facility] HHS/HCC) Myasthenia gravis ([facility]) Myasthenia gravis without exacerbation Temporal arteritis ([facility]) Giant cell arteritis documented in this encounter Care Teams Granulating Blender Relationship Specialty Start Date End Date Aliza Bain MD [address] [place] [address] PCP - General FAMILY PRACTICE 05/09/21 documented as of this encounter
--- OUTSIDE RECORDS SUMMARY | 2024-07-01 00:28 | XMS_ITS | Encounter Summary ---
Author Organization [facility] Address [facility]6 [facility] [place] [address] [place] [address] Care Team Providers Care Flooring Grader Name Role Phone Aliza Bain MD Primary Care Provider Encounter Details Date Type Department Care Team (Latest Contact Info) Description 05/09/2021 Travel Social History Tobacco Use Types Packs/Day [...] COVID-19? No / Unsure 05/09/2021 1:28 PM PUBLIC SERVICE DIRECTOR documented as of this encounter Plan of Treatment Upcoming Encounters Date Type Department Care Team (Late st Contact Info) Description 07/22/2024 11:40 AM PUBLIC SERVICE DIRECTOR Office Visit [facility] Multispecialty Care - [facility] [address] [facility], [address] [place] [address] Kris Amado MD 3 [place] [address] 10/16/2024 11:00 AM CDT Appointment [facility] [address] [address] Jimmy Morris MD Three [facility]. [address] [place] [address] documented as of this encounter Visit Diagnoses Not on filedocumented in this encounter Care Teams Flooring Grader Relationship Specialty Start Date End Date Aliza Bain MD [address] [place] [address] PCP - General FAMILY PRACTICE 05/09/21 documented as of this encounter
--- OUTSIDE RECORDS SUMMARY | 2024-07-01 00:28 | XMS_ITS | Encounter Summary ---
Author Organization [facility] Address [facility]6 [facility] [place] [address] [place] [address] Care Team Providers Care Music Store Manager Name Role Phone Unavailable Primary Care Provider Unavailabl e Encounter Details Date Type Department Care Team (Late st Contact Info) Description 09/30/1994 Abstract [facility] CONVERSION [address] [place], [place] [id number] , Generic Conversion, Social History Tobacco Use [...] st Contact Info) Description 07/22/2024 11:40 AM IC DESIGNER STANDARD CELLS Office Visit [facility] Multispecialty Care - [facility] [address] [facility], [address] [place] [address] Kris Amado MD 3 [place] [address] 10/16/2024 11:00 AM CDT Appointment [facility] [place] [address] Jimmy Morris MD Three [facility]. [address] [place], [place] [address] documented as of this encounter Visit Diagnoses Not on filedocumented in this encounter
--- OUTSIDE RECORDS SUMMARY | 2024-07-01 00:28 | XMS_ITS | Encounter Summary ---
Author Organization [facility] Address [facility] [facility] [place] [address] [place] [address] Care Team Providers Care Director Product Safety Name Role Phone Unavailable Primary Care Provider Unavailabl e Encounter Details Date Type Department Care Team (Late st Contact Info) Description 10/31/1994 Abstract [facility] CONVERSION [address] [place], [place] [id number] , Generic Conversion, Social History Tobacco Use [...] st Contact Info) Description 07/22/2024 11:40 AM TANK STAVE ASSEMBLER Office Visit [facility] Medical [facility] Multispecialty Care - [facility] 3 [facility], [address] [place] [address] Kris Amado MD 3 [place] [address] 10/16/2024 11:00 AM CDT Appointment [facility] [place] [address] Jimmy Morris MD Three [facility]. [address] [place], [place] [address] documented as of this encounter Visit Diagnoses Not on filedocumented in this encounter
--- OUTSIDE RECORDS SUMMARY | 2024-07-01 00:28 | XMS_ITS | Encounter Summary ---
Author Organization [facility] Address [facility]6 [facility] [place] [address] [place] [address] Care Team Providers Care Studio Technician Name Role Phone Unavailable Primary Care Provider Unavailabl e Encounter Details Date Type Department Care Team (Late st Contact Info) Description 10/26/1994 Abstract [facility] CONVERSION [address] [place], [place] [id number] , Generic Conversion, Social History Tobacco Use [...] st Contact Info) Description 07/22/2024 11:40 AM SPECIAL EDUCATION BUS DRIVER Office Visit [facility] Medical [facility] Multispecialty Care - [facility] 3 [facility], [address] [place] [address] Kris Amado MD 3 [place] [address] 10/16/2024 11:00 AM CDT Appointment [facility] [place] [address] Jimmy Morris MD Three [facility]. [address] [place], [place] [id number] documented as of this encounter Visit Diagnoses Not on filedocumented in this encounter
--- OUTSIDE RECORDS SUMMARY | 2024-07-01 00:28 | XMS_ITS | Encounter Summary ---
Author Organization [facility] Address [address] [place] [address]. [place] [address] [place] [address] Care Team Providers Care Image Processing Engineer Name Role Phone Aliza Bain MD Primary Care Provider Reason for Visit * Reason Onset Date Comments Lab Order 05/09/2021 Encounter Details Date Type Department Care Team (Late st Contact Info) Description 05/09/2021 Telephone [facility] Medical [facility] Mult[facility]pecialty Care - [facility] 3 [facility], [address] [place] [address] Kris Amado MD 3 [place] [address] Lab Order Social History Tobacco Use Types [...] COVID-19? No / Unsure 05/09/2021 1:28 PM ANIMAL CAREGIVER documented as of this encounter Progress Notes * Esthela Martin - 05/09/2021 3:38 PM CST The lab form [facility] called, and they have questions about the Myasthenia Panel that was ordered. They need something more specific. Please call them at ext. [phone] AL CAREGIVER documented in this encounter Plan of Treatment Upcoming Encounters Date Type Department Care Team (Late st Contact Info) Description 07/22/2024 11:40 AM ANIMAL CAREGIVER Office Visit [facility] Medical [facility] Multispecialty Care - [facility] 3 [facility], [address] [place] [address] Kris Amado MD 3 [place] [address] 10/16/2024 11:00 AM CDT Appointment [facility] [place] [address] Jimmy Morris MD Three [facility]. [address] [place] [address] documented as of this encounter Visit Diagnoses Not on filedocumented in this encounter Care Teams Image Processing Engineer Relationship Specialty Start Date End Date Aliza Bain MD [address] [place] [address] PCP - General FAMILY PRACTICE 05/09/21 documented as of this encounter
--- OUTSIDE RECORDS SUMMARY | 2024-07-01 00:28 | XMS_ITS | Encounter Summary ---
Author Organization [facility] Address [facility] [facility] [place] [address] [place] [address] Care Team Providers Care Horticulture Teacher Name Role Phone Unavailable Primary Care Provider Unavailabl e Encounter Details Date Type Department Care Team (Late st Contact Info) Description 10/16/1994 Abstract [facility] CONVERSION [address] [place] [id number] , Generic Conversion, Social History Tobacco Use [...] st Contact Info) Description 07/22/2024 11:40 AM REMELT FURNACE EXPEDITER Office Visit [facility] Medical Group Multispecialty Care - [facility] 3 [facility], [address] [place] [address] Kris Amado MD 3 [place] [address] 10/16/2024 11:[address] [facility] [place] [address] Jimmy Morris MD Three [facility]. [address] [place], [place] [phone] documented as of this encounter Visit Diagnoses Not on filedocumented in this encounter
--- OUTSIDE RECORDS SUMMARY | 2024-07-01 00:28 | XMS_ITS | Encounter Summary ---
Author Organization [facility] Address [facility]6 [facility] [place] [address] [place] [address] Care Team Providers Care Production Associate Name Role Phone Unavailable Primary Care Provider Unavailabl e Encounter Details Date Type Department Care Team (Late st Contact Info) Description 02/13/2004 Abstract [facility] CONVERSION [address] [place] [address] Billie Blackwood MD [address], [place] [address] Social History Tobacco Use Types Packs/Day Years [...] st Contact Info) Description 07/22/2024 11:40 AM DEVELOPMENT EDUCATOR Office Visit [facility] Medical Group Multispecialty Care - [facility] 3 [facility], [address] [place] [address] Kris Amado MD 3 [place] [address] 10/16/2024 11:00 AM CDT Appointment [facility] [place] [address] Jimmy Morris MD [facility]. [facility] [address] [place] [address] documented as of this encounter Visit Diagnoses Not on filedocumented in this encounter
--- OUTSIDE RECORDS SUMMARY | 2024-07-01 00:28 | XMS_ITS | Encounter Summary ---
Author Organization [facility] Address [facility] [place] [address] [place] [address] Care Team Providers Care Director International Name Role Phone Unavailable Primary Care Provider Unavailabl e Encounter Details Date Type Department Care Team (Late st Contact Info) Description 12/12/1997 Abstract [facility] CONVERSION [address] [place], [place] [id number] , Generic Conversion, Social History Tobacco Use [...] st Contact Info) Description 07/22/2024 11:40 AM DREDGE OPERATOR Office Visit [facility] Medical Group Multispecialty Care - [facility] 3 [facility], [address] [place] [address] Kris Amado MD 3 [place] [address] 10/16/2024 11:00 AM CDT Appointment [facility] [place] [address] Jimmy Morris MD Three [facility]. [address] [place], [place] [address] documented as of this encounter Visit Diagnoses Not on filedocumented in this encounter
--- OUTSIDE RECORDS SUMMARY | 2024-07-01 00:28 | XMS_ITS | Encounter Summary ---
Author Organization [facility] Address [facility]6 [facility] [place] [address] [place] [address] Care Team Providers Care Sterile Processing Technician Name Role Phone Unavailable Primary Care Provider Unavailabl e Encounter Details Date Type Department Care Team (Late st Contact Info) Description 08/18/2020 Orders Only [facility] [place] [address] Luis Palacios MD Social History Tobacco Use Types Packs/Day Years [...] st Contact Info) Description 07/22/2024 11:40 AM MILLROOM SUPERVISOR Office Visit [facility] Medical Group Multispecialty Care - [facility] 3 [facility], [address] [place] [address] Kris Amado MD 3 [place] [address] 10/16/2024 11:00 AM CDT Appointment [facility] [place] [address] Jimmy Morris MD Three [facility]. [address] [place] [address] documented as of this encounter Visit Diagnoses Not on filedocumented in this encounter
--- OUTSIDE RECORDS SUMMARY | 2024-07-01 00:28 | XMS_ITS | Encounter Summary ---
Author Organization [facility] Address [facility]6 [place] [address] [place] [address] Care Team Providers Care Lot Attendant Name Role Phone Unavailable Primary Care Provider Unavailabl e Encounter Details Date Type Department Care Team (Late st Contact Info) Description 10/02/1996 Abstract [facility] CONVERSION [address] [place], [place] [id number] , Generic Conversion, Social History Tobacco Use [...] st Contact Info) Description 07/22/2024 11:[address] CLERK Office Visit [facility] Medical Group Multispecialty Care - [facility] 3 [facility], [address] [place] [address] Kris Amado MD 3 [place] [address] 10/16/2024 11:[address] [facility] [place] [address] Jimmy Morris MD Three [facility]. [address] [place], [place] [address] documented as of this encounter Visit Diagnoses Not on filedocumented in this encounter
--- OUTSIDE RECORDS SUMMARY | 2024-07-01 00:37 | XMS_ITS | Clinical Summary ---
Author Organization Unknown Care Team Providers Care Seat Maker Name Role Phone WILFREDO AIRCREWMAN, ANA M Unavailable Unavailable GERMAN (HPH) HPH - OT, VILMA Unavailable Un available CARL RN, MISTY Unavailable Unavailable POPEYE PT, JEREMIAS Unavailable Unavailabl e Payers Payer Name Policy Type Policy Number Effective Date Expira tion Date [employer] MANAGED MEDICARE - [place] [facility] [id number] Problems Condition Name Condition Details Condition Category [...] 06-18 00:00: 00 ATHSCL HEART DISEASE OF [place] CORONARY ARTERY W/O ANG PCTRS Active 06-18 00:00: 00 ANEMIA, UNSPECIFIED Active 06-18 00:00: 00 POLYARTHRITI S, UNSPECIFIED Active 06-18 00:00: 00 GASTRO-ESOPH AGEAL REFLUX DISEASE WITHOUT ESOPHAGITIS Active 06-18 00:00: 00 HYPERLIPIDEM IA, UNSPECIFIED Active 06-18 00:00: 00 ELEVATED WHITE BLOOD CELL COUNT, UNSPECIFIED Active 06-18 00:00: 00 OCCLUSION AND STENOSIS OF UNSPECIFIED CAROTID ARTERY Active 06-18 00:00: 00 FDC (CURRENT) USE OF ASPIRIN Active 06-18 00:00: 00 FDC (CURRENT) USE OF ANTICOAGULAN TS Active 06-18 [...] 07-31 00:00: 00 11-08 23:59 :00 No [id number] Per instruc tions EVERY DAY Per instructio ns EVERY DAY (route: oral) Med Classific ation: Cardiovas cular Therapy Agents olmesartan 40 mg tablet 08-12 00:00: 00 11-21 23:59 :00 No [id number] 1 tablet EVERY DAY 1 tablet EVERY DAY (route: oral) Med Classific ation: Cardiovas cular Therapy Agents aspirin 81 mg tablet,marisela yed release 10-16 00:00: 00 Yes [id number] 1 tablet DAILY 1 tablet DAILY (route: oral) Med Classific ation: Hematolog ical Agents cyanocobala min (vit B-12) 100 mcg tablet 11-08 00:00: 00 11-21 23:59 :00 No [id number] 1 tablet DAILY 1 tablet DAILY (route: oral) Med Classific ation: Electroly te Balance-N utritiona l Products Eliquis 5 mg tablet 10-16 00:00: 00 Yes [id number] 1 tablet 2 TIMES DAILY 1 tablet 2 TIMES DAILY (route: oral) Med Classific ation: Hematolog ical Agents iron, carbonyl, vitamin c 30-10-25mg 30-10-25 10-16 00:00: 00 11-21 23:59 :00 No [id number] 1 mg 2 TIMES DAILY 1 mg 2 TIMES DAILY (route: BY MOUTH) Med Classific ation: ELECTROLY JASMINE/VITAM INS magnesium 250 mg tablet 11-08 00:00: 00 11-21 23:59 :00 No [id number] 1 tablet DAILY 1 tablet DAILY (route: oral) Med Classific ation: Electroly te Balance-N utritiona l Products Mestinon 60 mg tablet 06-18 00:00: 00 11-21 23:59 :00 No [id number] 1 tablet 3 TIMES DAILY 1 tablet 3 TIMES DAILY (route: oral) Med Classific ation: Locomotor System metoprolol tartrate 25 mg tablet 11-08 00:00: 00 Yes [id number] 1 tablet 2 TIMES DAILY 1 tablet 2 TIMES DAILY (route: oral) Med Classific ation: Cardiovas cular Therapy Agents oxycodone 5 mg tablet 11-08 00:00: 00 Yes [id number] 1 tablet EVERY 4 HOURS 1 tablet EVERY 4 HOURS (route: oral) Med Classific ation: Analgesic , Anti-infl ammatory or Antipyret ic Oyster Shell Calcium-Vit bai D3 500 mg-5 mcg (200 unit) tablet 11-08 00:00: 00 Yes [id number] 1 tablet DAILY 1 tablet DAILY (route: oral) Med Classific ation: Electroly te Balance-N utritiona l Products Protonix 20 mg tablet,marisela yed release 11-08 00:00: 00 11-21 23:59 :00 No [id number] 1 tablet 2 TIMES DAILY 1 tablet 2 TIMES DAILY (route: oral) Med Classific ation: Gastroint estinal Therapy Agents atorvastati n 40 mg tablet 11-08 00:00: 00 11-21 23:59 :00 No [id number] 1 tablet BEDTIME 1 tablet BEDTIME (route: oral) Med Classific ation: Cardiovas cular Therapy Agents cyanocobala min (vitamin B-12) 2,500 mcg tablet 12-05 00:00: 00 Yes [id number] 1 tablet DAILY 1 tablet DAILY (route: oral) Med Classific ation: Electroly te Balance-N utritiona l Products pantoprazol e 40 mg tablet,marisela yed release 11-21 00:00: 00 Yes [id number] 1 tablet 2 TIMES DAILY 1 tablet 2 TIMES DAILY (route: oral) Med Classific ation: Gastroint estinal Therapy Agents pyridostigm ine bromide 60 mg tablet 11-21 00:00: 00 Yes [id number] 0.5 tablet 2 TIMES DAILY 0.5 tablet 2 TIMES DAILY (route: oral) Med Classific ation: Locomotor System Vitamin C 500 mg tablet 11-21 00:00: 00 Yes [id number] 1 tablet DAILY 1 tablet DAILY (route: oral) Med Classific ation: Electroly te Balance-N utritiona l Products Vitamin D3 25 mcg (1,000 unit) capsule 11-21 00:00: 00 Yes [id number] 1 capsule DAILY 1 capsule DAILY (route: oral) Med Classific ation: Electroly te Balance-N utritiona l Products sucralfate 1 gram tablet 12-06 00:00: 00 01-10 23:59 :00 No [id number] 1 tablet 4 TIMES DAILY 1 tablet [...] ABLE TO PARTICIPATE IN BOWLING AND PLAYING [employer]-IT BALL. Goal Provider Goal - NURSING EVALUATION [...] End Date/Time Encounter Type Admission Type Attending Rust Care Department Encounter ID Discharge Date Discharge Status Discharge Condition Discharge Reason Percent Goals Met 2023-11-15 00:00:00 2024-01-10 00:00:00 Outpatient [facility] [id number] 2024-01-10 00:00:00 DISCHARGE TO HOME OR SELF CARE INDEPENDEN T IN THE HOME GOALS MET ( ONLY) 97.56
--- OUTSIDE RECORDS SUMMARY | 2024-07-01 00:38 | XMS_ITS | Encounter Summary ---
Author Organization [facility] [employer] [facility] Address [address] [address] [place] [address] Care Team Providers Care Flame Hardening Machine Operator Name Role Phone Aliza Bain MD Primary Care Provider Encounter Details Date Type Department Care Team (Late st Contact Info) Description 04/28/[address] [facility] Oncology and Hematology - [place] [address] [address] [place] [address] Nahid Hickman MD [address] [place] [address] Chronic anemia Social History Tobacco Use Types Packs/Day Years Used Date Smoking Tobacco: Former Cigarettes 0.5 40 0 08/19/1959 - 08/19/1999 Smokeless Tobacco: Never Alcohol Use Standard Drinks/Week Comments Yes 0 (1 standard drink = 0.6 oz pur e alcohol) occasional Feeling Safe Answer Date Recorded Within the last year, have y ou been afraid of your partner or ex-partner? No 07/29/2020 Within the last year, have y ou been humiliated or emotionally abused in other ways by your partner or ex-partner? No Within the last year, have y ou been kicked, hit, slapped, or otherwise physically hurt by your partner or ex-partner? No 07/29/2020 Within the last year, have y ou been raped or forced to have any kind of sexual activity by your partner or ex-partner? No 07/29/2020 Social Connections Answer Date Recorded Frequency of Communication with Friends and Fami ly Not on file 07/29/2020 Frequency of Social Gatherings with Friends and Family Not on file 07/29/2020 Attends Moravian Services Not on file 07/29 Do you belong to any clubs o r organizations such as zoroastrian groups, unions, fraternal or athletic groups, or school groups? Yes 07/29/2020 How often do you attend meet ings of the clubs or organizations you belong to? Never 07/29/2020 Marital Status Not on file 07/29/2020 Financial Resource Strain Answer Date R ecorded How hard is it for you to pa y for the very basics like food, housing, medical care, and heating? Not hard at all 07/29/2020 Transportation Needs Answer Date Record ed In the past 12 months, has l ack of transportation kept you from medical appointments or from getting medications? No 07/19 In the past 12 months, has l ack of transportation kept you from meetings, work, or from getting things needed for daily living? No 07/29/2020 Feeling Safe Answer Date Recorded Are you in a relationship wi th someone who hurts you emotionally and/or physically? Patient unable to answer 10/19/2023 Transportation Needs Answer Date Record ed Patient needs follow up regarding: Not on file 10/19/2023 Sex and Gender Information Value Date Recorded Sex Assigned at Not on file Gender Identity Not on file Sexual Orientation Not on file documented as of this encounter Plan of Treatment Upcoming Encounters Date Type Department Care Team (Late st Contact Info) Description 2024 11:00 AM HEALTH ADVISOR Appointment [facility] [address] [place] [address] 07/21/2024 9:45 AM HEALTH ADVISOR [facility]ointment [facility] Literacy Coach [address] [place] [address] Kiel Vasquez MD [address] [facility] [address] [place] [address] 07/21/2024 9:53 AM HEALTH ADVISOR Hospital Encounter [facility] [address] [place] [address] Kiel Vasquez MD [address] [facility] [address] [place] [address] Paroxysmal A-fib 07/21/2024 9:53 AM HEALTH ADVISOR - 07/21/2024 11:46 AM HEALTH ADVISOR Surgery [facility]acy Coach [facility] [place] [address] Kiel Vasquez MD [facility] [address] [place] [address] Left atrial appendage closure percutaneous 07/28/2024 8:30 AM HEALTH ADVISOR Office Visit [facility] Oncology and Hematology - [place] [address] [facility] [address] [place] [address] Nahid Hickman MD [address] [facility] [address] [place] [address] 09/09/2024 1:00 PM CDT Office Visit [facility] Heart and Vascular At [address] [place] [address] Kiel Vasquez MD [facility] [address] [place] [address] 12/16/2024 11:00 AM CDT Office Visit [facility] HEART AND VASCULAR EP AT [address] [place] [address] Demetrius Bowling DNP [address] [place] [address] [address] [place] [address] 02/05/2025 10:45 AM CDT Telephone Check Up [facility] Heart and Vascular At [address] [place] [address] 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 FNP [facility] [place] [address] documented as of this encounter Visit Diagnoses Diagnosis Chronic anemia Anemia, unspecified Paroxysmal atrial fibrillation- Primary Atrial fibrillation Paroxysmal A-fib Atrial fibrillation Paroxysmal A-fib Atrial fibrillation documented in this encounter Care Teams Flame Hardening Machine Operator Relationship Specialty Start Date End Date Aliza Bain MD [address] [place] [address] PCP - General Family Practice 11/22/21 documented as of this encounter
--- OUTSIDE RECORDS SUMMARY | 2024-07-01 00:38 | XMS_ITS | Encounter Summary ---
Author Organization [facility] Address [address] [place] [address] Care Team Providers Care Carpet Jack Name Role Phone Aliza Bain MD Primary Care Provider Encounter Details Date Type Department Care Team (Late st Contact Info) Description 05/30/2024 Cardiology Conference [facility] Heart and Vascular At [address] [place] [phone] Margie Leonard RN Social History Tobacco Use Types Packs/Day Years [...] and Family Not on file 07/29/2020 Attends Judaism Services Not on file 07/29 Do you belong to any clubs o r organizations such as hoahaoism groups, unions, fraternal or athletic groups, or [...] as of this encounter Progress Notes * Margie Leonard, RN - 05/30/2024 11:32 AM CST Pt was called with the following information/ instructions: AMULET: Pre-surgical Instructions You are scheduled for a MADHAV Bettsulet with Dr. Vasquez at [facility] on Sunday July 21, 2024 at 10:00am. Please arrive at the 2nd floor of the [facility] admitting at 8:00am. You may receive a phone call telling you to arrive 15 minutes early, it is important that you arrive a the time we have given you. PRE-OP INSTRUCTIONS An appointment with an anesthesiologist and blood work will need to be done a few days before your scheduled procedure. You do not need to fast before this blood work. This will be done via the PACE clinic inside of [facility]. YOUR APPOINTMENT IS Tuesday 2024 at 11:00am . Please remember to arrive 15 minutes early and bring your ID and insurance card. Enter the tower A medical building and proceed to the outpatient registration desk. Staff will thendirect you to the PACE clinic. WITHIN 24 HOURS PRIOR TO SURGERY SHOWER AND SHAMPOO the evening before and morning of surgery using anti- bacterial soap (like dial).Rinse thoroughly with warm water. Sleep on clean sheets the night before procedure. DO NOT shave near the surgical site. After showering the morning of surgery, DO NOT APPLY body lotions, oil, deodorants, mousse, gel, orpowder. Apply no lotions, gels or creams prior to schedule surgery. DO NOT WEAR JEWELRY (rings, earrings, and body piercings), or hair pieces to the hospital. SMOKING AND USE OF TOBACCO PRODUCTS We recommend patients abstain from smoking for as long as possible before and after surgery, but even quitting for a brief period is still beneficial. DO NOT SMOKE OR USE TOBACCO PRODUCTS 12 hours before arrival to hospital. PLEASE DO NOT EAT anything--including GUM, CANDY, or MINTS--after midnight. You may BRUSH YOUR TEETH. PRE-PROCEDURE ORAL INTAKE INSTRUCTIONS - DIETARY INSTRUCTIONS Based on your health history and/or scheduled procedure, the following pre- procedure dietary instructions should be followed: * Do not eat food or drink liquids after midnight prior to your procedure. *Oral Hygiene: Adult patients are encouraged to brush teeth, without swallowing, on the day of the procedure. *Use of gum or hard candy on the day of a procedure is discouraged. Patients using gum or hard candy upon presentation to the facility shall be directed to remove the product and not resume use. *if you take Byetta, Victoza, Adlyxin, Symlin, Bydureon, Trulicity, Ozempic, Mounjaro, Wegovy, or Rybelsus please hold for 7 days prior to procedure DAY OF SURGERY INSTRUCTIONS ? You MAY take the following medications in the morning with a sip of water. Current Outpatient Medications: ondansetron (ZOFRAN ODT) 8 mg Tablet, Rapid Dissolve, Dissolve 1 tablet on top of tongue then swallow with saliva every 8 hours as needed for nausea or vomiting, Disp: 30 Tablet, Rfl: 1 ferrous sulfate 325 mg (65 mg iron) tablet, Take 1 Tablet by mouth 2 times daily., Disp: , Rfl: fluticasone propionate (FLONASE) 50 mcg/spray Reese, Suspension nasal inhaler, Administer 2 Sprays in each nostril daily., Disp: , Rfl: atorvastatin (LIPITOR) 40 mg tablet, Take 1 Tablet (40 mg) by mouth daily at bedtime., Disp: 90 Tablet, Rfl: 3 metoprolol tartrate (LOPRESSOR) 25 mg tablet, Take 1 Tablet (25 mg) by mouth 2 times daily. (Patient taking differently: Take 50 mg by mouth 2 times daily.), Disp: 180 Tablet, Rfl: 3 pyRIDostigmine (MESTINON) 60 mg tablet, Take 60 mg by mouth daily. 1/2 TABLET IN THE AM AND 1/2 TABIN THE PM, Disp: , Rfl: acetaminophen-codeine (TYLENOL #3) 300-30 mg tablet, Take 1 Tablet by mouth every 6 hours as needed. STOPPED, Disp: , Rfl: pantoprazole (PROTONIX) 20 mg Tablet, Delayed Release (E.C.), Take 20 mg by mouth 2 times daily. ASNEEDED, Disp: , Rfl: aspirin (ECOTRIN EC) 81 mg Tablet, Delayed Release (E.C.), Take 81 mg by mouth daily., Disp: , Rfl: olmesartan (BENICAR) 40 mg tablet, Take 40 mg by mouth daily. Medication bottle is Olmesartan Medoxomil 40 MG tab1 tab by mouth daily, Disp: , Rfl: You do not need to hold your Aspirin. Stop all of these medications 7 days prior to your surgery: Excedrin, motrin, advil, ibuprofen, aleve, naproxen, meloxicam, Celebrex, celecoxib, and all herbalsupplements or vitamins. Tylenol is okay YOU WILL NEED A RESPONSIBLE ADULT UPON DISCHARGE to drive you home. BRING PRESCRIBED INHALERS to the hospital with you but DO NOT BRING ANY OTHER MEDICATIONS to the hospital (unless otherwise instructed). WEAR comfortable, loose fitting clothes or PJs to the hospital. WEAR GLASSES instead of contact lenses to the hospital; bring a case if possible for glasses, dentures, and hearing aids as you will be asked to remove these items before your surgery. Bring your insurance cards and courtesy car driver's license or photo ID. DO NOT BRING VALUABLES or large amounts of johnson with you to the hospital. BRING any medical devices you need to the hospital, including remotes for stimulators, CPAP, BIPAP,or WOUND VAC machines. Surgical times are estimates and can vary depending on numerous factors. Please bring an overnight bag and be prepared for a 1 night hospital stay. ~~~~~~~~~~~~~~~~~~~~~~~~~~~~~~~~~~~~~~~~~~~~~~~~~~~~~~~~~~~~ You will need a post Amulet ANSELMO approximately 45 days after your procedure. Please contact our office to schedule this appointment once your Amulet implant is complete. INSTRUCTIONS for ANSELMO: -- Nothing to eat or drink after midnight the evening prior. -- You MAY take your medications in the morning with a sip of water -- If you are diabetic, please do not take your diabetic medications until you are able to eat afterwards. -- You will need someone to stay at the hospital during the procedure and to drive you home afterwards. TEEs will not be performed on individuals without a courtesy car driver waiting for them. -- Someone will need to stay with you for the day after you return home after the procedure. ~~~~~~~~~~~~~~~~~~~~~~~~~~~~~~~~~~~~~~~~~~~~~~~~~~~~~~~~~~~~~ You will need to be seen 45 days and 6 months, 1 year and 2 years in follow up with Dr. Vasquez. The 45 day appointment will be scheduled and on your discharge paperwork. Please do not hesitate to contact me with any questions or concerns, or if you need to change theseappointment times. I can be reached Sunday-Sunday at [phone]. FLOOR LAYER documented in this encounter Plan of Treatment Upcoming Encounters Date Type Department Care Team (Late st Contact Info) Description 2024 11:00 AM WOOD FLOOR LAYER Appointment [facility] [address] [place] [address] 07/21/2024 9:45 AM WOOD FLOOR LAYER Appointment [facility] Quality Lead [address] [place] [address] Kiel Vasquez MD [address] [facility] [address] [place] [address] 07/21/2024 9:53 AM WOOD FLOOR LAYER Hospital Encounter [facility] Quality Lead [address] [place] [address] Kiel Vasquez MD [address] [facility] [address] [place] [address] Paroxysmal A-fib 07/21/2024 9:53 AM WOOD FLOOR LAYER - 07/21/2024 11:46 AM WOOD FLOOR LAYER Surgery [facility] Quality Lead [address] [place] [address] Kiel Vasquez MD [address] [facility] [address] [place] [address] Left atrial appendage closure percutaneous 07/28/2024 8:30 AM WOOD FLOOR LAYER Office Visit [facility] Oncology and Hematology - [place] [address] [place] [phone] Nahid Hickman MD [address] [address] 09/09/2024 1:00 PM CDT Office Visit [facility] Heart and Vascular At [address] [place] [address] Kiel Vasquez MD [address] [facility] [address] [place] [address] 12/16/2024 11:00 AM CDT Office Visit [facility] HEART AND VASCULAR EP AT [address] [place] [address] Demetrius Bowling, TRUONG [address] [place] [address] 02/05/2025 10:45 AM CDT Telephone Check Up [facility] Heart and Vascular At [facility] [address] [place] [address] 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, THIRD RAIL INSTALLER [address] [place] [address] documented as of this encounter Visit Diagnoses Not on filedocumented in this encounter Care Teams Carpet Jack Relationship Specialty Start Date End Date Aliza Bain MD [address] [place] [address] PCP - General Family Practice 11/22/21 documented as of this encounter
--- OUTSIDE RECORDS SUMMARY | 2024-07-01 00:38 | XMS_ITS | Encounter Summary ---
Author Organization [facility] Address [address] [place] [address] Care Team Providers Care Set Making Machine Operator Name Role Phone Aliza Bain MD Primary Care Provider Reason for Visit * Reason Comments Follow Up 1 year Paroxysmal at rial fibrillation f/u Encounter Details Date Type Department Care Team (Late st Contact Info) Description 12/17/2023 11:30 AM CDT Office Visit [facility] HEART AND VASCULAR EP AT [address] [place] [address] Melita Woods MD NO ADDRESS ON FILE Paroxysmal atrial fibrillation (Primary Dx); Benign hypertension Social History Tobacco Use Types Packs/Day Years [...] and Family Not on file 07/29/2020 Attends Islam Services Not on file 07/29 Do you belong to any clubs o r organizations such as mu-ism groups, unions, fraternal or athletic groups, or [...] Sign Reading Time Taken Comments Blood Pressure 138/76 12/17/2023 11:34 AM CDT Pulse 42 12/17/2023 11:34 AM CDT Temperature - - Respiratory Rate - - Oxygen Saturation 99% 12/17/2023 11:34 AM CDT Inhaled Oxygen Concentration - - Weight 58.1 kg (128 lb) 12/17/2023 11:34 AM CDT Height - - Body Mass Index 22.67 11/22/2023 9:43 AM CDT documented in this encounter Progress Notes * Melita Woods MD - 12/17/2023 12:00 PM CDT CC: Atrial fibrillation HPI: Cassnadra Martinez is a 78 y.o. female with past medical history notable for hypertension, non-smallcell lung cancer, carotid artery stenosis, and persistent atrial fibrillation. She was diagnosed with atrial fibrillation when she underwent lung resection in August 2020. She is status post electrophysiology study and ablation for atrial fibrillation in 2021. During that procedure isolated all 4 pulmonary veins and targeted the cavotricuspid isthmus with ablation until bidirectional block was obtained. The patient underwent CABG in October 2023. She was noted to be in atrial fibrillation postoperatively.she converted spontaneously. She feels well and denies recurrent AF. REVIEW OF SYSTEMS Review of Systems Constitutional: Negative. Negative for fever and fatigue. HENT: Negative. Eyes: Negative. Negative for visual disturbance. Respiratory: Negative. Negative for shortness of breath and wheezing. Cardiovascular: Negative. Negative for chest pain and leg swelling. Gastrointestinal: Negative. Musculoskeletal: Negative. Skin: Negative. Neurological: Negative for dizziness. Psychiatric/Behavioral: Negative. All other systems reviewed and are negative. Past Medical History: Diagnosis Date Arthritis Dyspnea on exertion GERD (gastroesophageal reflux disease) HTN (hypertension) Hx of degenerative disc disease Injury of back DDD Malignant neoplasm of lung Past Surgical History: Procedure Laterality Date HX ANKLE SURGERY HX COLONOSCOPY W/ POLYPECTOMY HX CORONARY ARTERY BYPASS GRAFT N/A 10/22/2023 CORONARY ARTERY BYPASS GRAFT X3 OFF PUMP WITH LEFT INTERNAL MAMMARY ARTERY performed by Edinson Ferrell MD at [facility] OR HX HYSTERECTOMY HX SPLENECTOMY HX THORACOTOMY Right 08/31/2020 THORACOTOMY performed by Edinson Ferrell MD at [facility] OR HX TONSILLECTOMY HX TRIGGER FINGER REPAIR MO ECHO TRANSESOPHAG MONTR CARDIAC PUMP FUNCTJ N/A 10/22/2023 TRANSESOPHAGEAL ECHOCARDIOGRAM performed by Shin Rosenbaum DO at [facility] OR MO INCISION DEEP OPENING BONE CORTEX THORAX N/A 10/22/2023 STERNOTOMY performed by Edinson Ferrell MD at [facility] OR MO NDSC SURG W/VIDEO-ASSISTED HARVEST VEIN CABG Left 10/22/2023 VEIN HARVEST ENDOSCOPIC performed by Edinson Ferrell MD at [facility] OR MO RMVL LUNG OTHER THAN PNEUMONECTOMY 1 LOBE LOBECT Right 08/31/2020 LUNG LOBECTOMY performed by Edinson Ferrell MD at [facility] OR Family History Problem Relation Name Age of Onset Heart Disease Father Heart Disease Mother Stroke Sister Asthma Sister Current Outpatient Medications Medication Sig Dispense Refill atorvastatin (LIPITOR) 40 mg tablet Take 1 Tablet (40 mg) by mouth daily at bedtime. 30 Tablet 0 metoprolol tartrate (LOPRESSOR) 25 mg tablet Take 1 Tablet (25 mg) by mouth 2 times daily. 180 Tablet 3 pyRIDostigmine (MESTINON) 60 mg tablet Take 60 mg by mouth 3 times daily. apixaban (Eliquis) 5 mg tablet Take 1 Tablet (5 mg) by mouth 2 times daily. 180 Tablet 3 pantoprazole (PROTONIX) 20 mg Tablet, Delayed Release (E.C.) Take 20 mg by mouth 2 times daily. cyanocobalamin (VITAMIN B-12) 100 mcg tablet Take 100 mcg by mouth daily. calcium-cholecalciferol (OS-SUSAN 500+D) 500 mg(1,250mg) -200 unit tablet Take 1 Tablet by mouth daily. magnesium oxide 250 mg magnesium Tablet Take by mouth. aspirin (ECOTRIN EC) 81 mg Tablet, Delayed Release (E.C.) Take 81 mg by mouth daily. cholecalciferol, vitamin D3, (VITAMIN D3 ORAL) Take by mouth. olmesartan (BENICAR) 40 mg tablet Take 40 mg by mouth daily. Medication bottle is Olmesartan Medoxomil 40 MG tab1 tab by mouth daily acetaminophen-codeine (TYLENOL #3) 300-30 mg tablet Take 1 Tablet by mouth every 6 hours as needed.STOPPED No current facility-administered medications for this visit. Social History Tobacco Use Smoking status: Former Current packs/day: 0.00 Average packs/day: 0.5 packs/day for 40.0 years (20.0 ttl pk-yrs) Types: Cigarettes Start date: 08/19/1959 Quit date: 08/19/1999 Years since quittin.3 Smokeless tobacco: Never Vaping Use Vaping status: Never Used Substance Use Topics Alcohol use: Yes Comment: occasional Drug use: Never PHYSICAL EXAM Vitals: 12/17/23 1134 BP: 138/76 Pulse: (!) 42 SpO2: 99% Constitutional: Oriented to person, place, and time. Well-developed and well-nourished. Head: Normocephalic and atraumatic. Eyes: Conjunctivae are normal. Neck: Neck supple. Cardiovascular: Fast rate, irregular rhythm and normal heart sounds. Exam reveals no friction rub. No murmur heard. Pulmonary/Chest: Breath sounds normal. He has no wheezes. He has no rales. Abdominal: Soft. Neurological: alert and oriented to person, place, and time. Skin: Skin is warm. Psychiatric: normal mood and affect. Vitals reviewed. EKG: AF VR 103 bpm Labs: Holter 2020 atrial fibrillation with rapid ventricular response ASSESSMENT AND PLAN: Persistent atrial fibrillation Hypertension Non-small cell lung cancer status post lung resection Doing well post ablation Had some AF post cardiac surgery which has resolved Occasional AT runs on event monitor post surgery. Again, that might no longer be relevant BP well controlled Cont metoprolol Cont Eliquis RTC 12 months Thank you very much for giving us a chance to participate int the care of your patient. Please do not hesitate to contact us if we can be of further assistance. This note was dictated using [employer] speech recognition and was not edited for errors. * Cecily Aceves - 12/17/2023 11:31 AM CDT 1 year Paroxysmal atrial fibrillation f/u, SOB, No other symptoms. documented in this encounter Procedure Notes * Melita Woods MD - 12/17/2023 12:12 PM CDTAssociated Order(s): EKG 12-LEAD Procedure(s): [place] ECG ROUTINE ECG W/LEAST 12 LDS W/I&R Pre-Procedure Diagnose(s): Paroxysmal atrial fibrillation EKG: AF VR 103 bpm documented in this encounter Plan of Treatment Upcoming Encounters Date Type Department Care Team (Late st Contact Info) Description 2024 11:00 AM PERMACULTURE DESIGNER Appointment [facility] [address] [facility] [address] [facility] [place] [address] 07/21/2024 9:45 AM PERMACULTURE DESIGNER Appointment [facility] Clinical Outcomes Manager [address] [place] [address] Kiel Vasquez MD [address] [facility] [address] [place] [address] 07/21/2024 9:53 AM PERMACULTURE DESIGNER Hospital Encounter [facility] Clinical Outcomes Manager [address] [place] [address] Kiel Vasquez MD [address] [facility] [address] [place] [address] Paroxysmal A-fib 07/21/2024 9:53 AM PERMACULTURE DESIGNER - 07/21/2024 11:46 AM PERMACULTURE DESIGNER Surgery [facility] Clinical Outcomes Manager [address] [place] [address] Kiel Vasquez MD [address] [facility] [address] [place] [address] Left atrial appendage closure percutaneous 07/28/2024 8:30 AM PERMACULTURE DESIGNER Office Visit [facility] Oncology and Hematology - [place] [address] [place] [phone] Nahid Hickman MD [address] [address] 09/09/2024 1:00 PM CDT Office Visit [facility] Heart and Vascular At [address] [place] [address] Kiel Vasquez MD [address] [facility] [address] [place] [address] 12/16/2024 11:00 AM CDT Office Visit [facility] HEART AND VASCULAR EP AT [address] [place] [phone] Demetrius Bowling, TRUONG [address] [facility] [address] [place] [address] 02/05/2025 10:45 AM CDT Telephone Check Up [facility] Heart and Vascular At [facility] [address] [facility] [address] [place] [address] 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, DENTAL ASSISTANT TEACHER [address] [address] documented as of this encounter Procedures Procedure Name Priority Date/Time Associated Diagnosis Comments [place] ECG ROUTINE ECG W/LEAST 12 LDS W/I&R Routine 12/17/2023 12:12 PM CDT Paroxysmal atrial fibrillation documented in this encounter Results * [place] ECG ROUTINE ECG W/LEAST 12 LDS W/I&R (12/17/2023 12:12 PM CDT) Narrative [facility] - 12/17/2023 12:12 PM CDT Melita Woods MD ? 12/17/2023 12:13 PM EKG: AF VR 103 bpm Procedure Note Melita Woods MD - 12/17/2023 12:12 PM CDT EKG: AF VR 103 bpm Melita Woods MD ECG ORDERABLES [facility] documented in this encounter Visit Diagnoses Diagnosis Paroxysmal atrial fibrillation- Primary Atrial fibrillation Benign hypertension Essential hypertension, benign Paroxysmal atrial fibrillation- Primary Atrial fibrillation Paroxysmal A-fib Atrial fibrillation Paroxysmal A-fib Atrial fibrillation documented in this encounter Care Teams Set Making Machine Operator Relationship Specialty Start Date End Date Aliza Bain MD [address] [place] [address] PCP - General Family Practice 11/22/21 documented as of this encounter
--- OUTSIDE RECORDS SUMMARY | 2024-07-01 00:38 | XMS_ITS | Encounter Summary ---
Author Organization [facility] [employer] [facility] Address [address] [place] [address] Care Team Providers Care Group Supervisor Yard Name Role Phone Aliza Bain MD Primary Care Provider Reason for Visit * Reason Onset Date Comments vaccine questions 04/22/2024 Encounter Details Date Type Department Care Team (Late st Contact Info) Description 04/22/2024 Telephone [facility] Oncology and Hematology - [place] [address] [place] [address] Yasmin Lam MD [address] [place] [address] vaccine questions Social History Tobacco Use Types Packs/Day Years [...] and Family Not on file 07/29/2020 Attends Synagogue Services Not on file 07/29 Do you belong to any clubs o r organizations such as pentecostal groups, unions, fraternal or athletic groups, or [...] on file documented as of this encounter Miscellaneous Notes * Telephone Encounter - Fanny Altamirano - 04/22/2024 3:37 PM CST ----- Message from Dr. Yasmin Lam sent at 04/22/2024 3:22 PM MIXER WHIPPED TOPPING ----- Regarding: RE: vaccine Yes she can get vaccines while on azacitidine ----- Message ----- From: Fanny Altamirano Sent: 04/22/2024 11:48 AM MIXER WHIPPED TOPPING To: Yasmin Lam MD Subject: vaccine Patient is getting azacitidine injection, patient is wondering when she can get her flu, RSV and covid 19 vaccinations. Please advise. R WHIPPED TOPPING documented in this encounter Plan of Treatment Upcoming Encounters Date Type Department Care Team (Late st Contact Info) Description 2024 11:00 AM MIXER WHIPPED TOPPING Appointment [facility] [address] [place] [address] 07/21/2024 9:45 AM MIXER WHIPPED TOPPING Appointment [facility] Cutting Machine Tender Decorative [address] [place] [address] Kiel Vasquez MD [address] [facility] [address] [place] [address] 07/21/2024 9:53 AM MIXER WHIPPED TOPPING Hospital Encounter [facility] Cutting Machine Tender Decorative [address] [place] [address] Kiel Vasquez MD [address] [facility] [address] [place] [address] Paroxysmal A-fib 07/21/2024 9:53 AM MIXER WHIPPED TOPPING - 07/21/2024 11:46 AM MIXER WHIPPED TOPPING Surgery [facility] Cutting Machine Tender Decorative [address] [place] [address] Kiel Vasquez MD [address] [facility] [address] [place] [address] Left atrial appendage closure percutaneous 07/28/2024 8:30 AM MIXER WHIPPED TOPPING Office Visit [facility] Oncology and Hematology - [place] [address] [facility] [address] [place] [address] Nahid Hickman MD [address] [facility] [address] [place] [address] 09/09/2024 1:00 PM CDT Office Visit [facility] Heart and Vascular At [facility] [address] [facility] [address] [place] [address] Kiel Vasquez MD [address] [facility] [address] [place] [address] 12/16/2024 11:00 AM CDT Office Visit [facility] HEART AND VASCULAR EP AT [place] [address] [facility] [address] [place] [address] Demetrius Bowling DNP [address] [facility] [address] [place] [address] 02/05/2025 10:45 AM CDT Telephone Check Up [facility] Heart and Vascular At [place] [address] [facility] [address] [place] [address] 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 FNP [address] [place] [address] documented as of this encounter Visit Diagnoses Not on filedocumented in this encounter Care Teams Group Supervisor Yard Relationship Specialty Start Date End Date Aliza Bain MD [address] [place] [address] PCP - General Family Practice 11/22/21 documented as of this encounter
--- OUTSIDE RECORDS SUMMARY | 2024-07-01 00:38 | XMS_ITS | Encounter Summary ---
Author Organization [facility] [employer] [facility] Address [address] [place] [address] Care Team Providers Care Radiography Technician Name Role Phone Aliza Bain MD Primary Care Provider Encounter Details Date Type Department Care Team (Late st Contact Info) Description 05/07/2024 Orders Only [facility] Oncology and Hematology - [place] [address] [facility] 200 [place] [address] Nahid Hickman MD [address] [place] [address] Social History Tobacco Use Types Packs/Day Years [...] and Family Not on file 07/29/2020 Attends Hinduism Services Not on file 07/29 Do you belong to any clubs o r organizations such as restorationism groups, unions, fraternal or athletic groups, or [...] st Contact Info) Description 2024 11:00 AM POST TENSIONING IRONWORKER Appointment [facility] [address] [place] [phone] 07/21/2024 9:45 AM POST TENSIONING IRONWORKER Appointment [facility] Financial Institution Manager [address] [facility] [place] [address] Kiel Vasquez MD [address] [facility] 2014 [place] [address] 07/21/2024 9:53 AM POST TENSIONING IRONWORKER Hospital Encounter [facility] Financial Institution Manager [address] [place] [address] Kiel Vasquez MD [facility] S [facility] 2014 [place] [address] Paroxysmal A-fib 07/21/2024 9:53 AM POST TENSIONING IRONWORKER - 07/21/2024 11:46 AM POST TENSIONING IRONWORKER Surgery [facility] Financial Institution Manager [address] [place] [phone] Kiel Vasquez MD [address] [place] [address] 2014 [place] [address] Left atrial appendage closure percutaneous 07/28/2024 8:30 AM POST TENSIONING IRONWORKER Office Visit [facility] Oncology and Hematology - [place] 2227 [facility] 200 [place] [address] Nahid Hickman MD 2227 [facility] [address] [place] [address] 09/09/2024 1:00 PM CDT Office Visit [facility] Heart and Vascular At [address] 2014 [place] [address] Kiel Vasquez MD [address] [place] [address] 2014 [place] [address] 12/16/2024 11:00 AM CDT Office Visit [facility] HEART AND VASCULAR EP AT [address] 2014 [place] [address] Demetrius Bowling DNP [address] [place] [address] 2014 [place] [address] 02/05/2025 10:45 AM CDT Telephone Check Up [facility] Heart and Vascular At [address] 2014 [place] [address] 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 FNP [address] [place] [address], [place] [address] documented as of this encounter Procedures Procedure Name Priority Date/Time Associated Diagnosis Comments CT CHEST W CONTRAST Routine 05/06/2024 12:04 PM POST TENSIONING IRONWORKER documented in this encounter Results * CT CHEST W CONTRAST (05/06/2024 12:04 PM POST TENSIONING IRONWORKER) Anatomical Region Laterality Modality Chest Other Nahid Hickman MD CT ORDERABLES documented in this encounter Visit Diagnoses Not on filedocumented in this encounter Care Teams Radiography Technician Relationship Specialty Start Date End Date Aliza Bain MD [address] [place] [address] PCP - General Family Practice 11/22/21 documented as of this encounter
--- OUTSIDE RECORDS SUMMARY | 2024-07-01 00:38 | XMS_ITS | Encounter Summary ---
Author Organization [facility] Address [address] [place] [address] Care Team Providers Care Director Of Hotel Name Role Phone Aliza Bain MD Primary Care Provider Reason for Visit * Reason Comments Med Change Request Encounter Details Date Type Department Care Team (Late st Contact Info) Description 12/16/[address] [facility] Heart and Vascular At [address] 2014 [place] [address] Louise Marie, [facility] [address] [facility] 2014 [place] [address] Social History Tobacco Use Types Packs/Day Years [...] and Family Not on file 07/29/2020 Attends Christianity Services Not on file 07/29 Do you belong to any clubs o r organizations such as tenriism groups, unions, fraternal or athletic groups, or [...] encounter Miscellaneous Notes * Telephone Encounter - Clarice Palmer - 12/18/2023 1:38 PM CDT Comments: Date Last Seen: 07/31/23 with Christina Next Appointment: 03/25/24 with Christina Last BMP: Lab Results Component Value Date/Time NA 136 10/29/2023 01:54 AM K 4.2 10/29/2023 01:54 AM CL 102 10/29/2023 01:54 AM CO2 24 10/29/2023 01:54 AM CA 8.5 (L) 10/29/2023 01:54 AM BUN 22 10/29/2023 01:54 AM CREAT 1.03 (H) 10/29/2023 01:54 AM GLUCOSE 117 (H) 10/29/2023 01:54 AM ANIONGAP 10 10/29/2023 01:54 AM Last CMP: Lab Results Component Value Date/Time NA 136 10/29/2023 01:54 AM K 4.2 10/29/2023 01:54 AM CL 102 10/29/2023 01:54 AM CO2 24 10/29/2023 01:54 AM CA 8.5 (L) 10/29/2023 01:54 AM BUN 22 10/29/2023 01:54 AM CREAT 1.03 (H) 10/29/2023 01:54 AM GLUCOSE 117 (H) 10/29/2023 01:54 AM TOTALPROTEIN 6.9 10/23/2023 04:07 AM ALBUMIN 4.0 10/23/2023 04:07 AM BILITOTAL 0.5 10/23/2023 04:07 AM ALKPHOS 73 10/23/2023 04:07 AM AST 46 (H) 10/23/2023 04:07 AM ALT 16 10/23/2023 04:07 AM ANIONGAP 10 10/29/2023 01:54 AM Last 3 INR: Lab Results Component Value Date/Time INR 1.3 (H) 10/22/2023 06:14 PM INR 1.2 (H) 10/19/2023 09:58 AM INR 1.2 (H) 08/16/2021 06:02 AM PT 16.5 (H) 10/22/2023 06:14 PM PT 15.3 (H) 10/19/2023 09:58 AM PT 16.2 (H) 08/16/2021 06:02 AM Last Lipid Panel: Lab Results Component Value Date/Time CHOLTOT 151 10/19/2023 09:58 AM HDL 44 10/19/2023 09:58 AM LDLCALC 90 10/19/2023 09:58 AM TRIGLYCERIDE 83 10/19/2023 09:58 AM Current Medication: Current Outpatient Medications Medication Sig Dispense Refill [...] mouth 2 times daily. 180 Tablet 3 acetaminophen-codeine (TYLENOL #3) 300-30 mg tablet Take 1 Tablet by mouth every 6 hours as needed.STOPPED pantoprazole (PROTONIX) 20 mg Tablet, Delayed Release [...] 40 MG tab1 tab by mouth daily No current facility-administered medications for this visit. documented in this encounter Plan of Treatment Upcoming Encounters Date Type Department Care Team (Late st Contact Info) Description 2024 11:00 AM LICENSED APPRAISER Appointment [facility] [address] [place] [address] 07/21/2024 9:45 AM LICENSED APPRAISER Appointment [facility] [employer] [address] [place] [address] Kiel Vasquez MD [address] [facility] 2014 [place] [address] 07/21/2024 9:53 AM LICENSED APPRAISER Hospital Encounter [facility] [address] [place] [address] Kiel Vasquez MD [address] [facility] 2014 [place] [address] Paroxysmal A-fib 07/21/2024 9:53 AM LICENSED APPRAISER - 07/21/2024 11:46 AM LICENSED APPRAISER Surgery [facility] [employer] [address] [place] [phone] Kiel Vasquez MD [address] [place] [address] 2014 [place] [address] Left atrial appendage closure percutaneous 07/28/2024 8:30 AM LICENSED APPRAISER Office Visit [facility] Oncology and Hematology - [place] 2227 [facility] 200 [place] [address] Nahid Hickman MD 2[address] [facility] [address] [place] [address] 09/09/2024 1:00 PM CDT Office Visit [facility] Heart and Vascular At [address] 2014 [place] [address] Kiel Vasquez MD [address] [place] [address] 2014 [place] [address] 12/16/2024 11:00 AM CDT Office Visit [facility] HEART AND VASCULAR EP AT [address] [place] [address] Demetrius Bowlnig DNP [address] [place] [address] 2014 [place] [address] 02/05/2025 10:45 AM CDT Telephone Check Up [facility] Heart and Vascular At [address] 2014 [place] [address] 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 FNP [facility] [place] [address] documented as of this encounter Visit Diagnoses Not on filedocumented in this encounter Care Teams Director Of Hotel Relationship Specialty Start Date End Date Aliza Bain MD [address] [place] [address] PCP - General Family Practice 11/22/21 documented as of this encounter
--- OUTSIDE RECORDS SUMMARY | 2024-07-01 00:38 | XMS_ITS | Encounter Summary ---
Author Organization [facility] Address [address] [place] [address] Care Team Providers Care Pigment Pumper Name Role Phone Aliza Bain MD Primary Care Provider Encounter Details Date Type Department Care Team (Late st Contact Info) Description 04/22/2024 Orders Only [facility] Oncology and Hematology - [place] [address] [facility] 200 [place] [address] Nahid Hickman MD [address] [employer] [address] [place] [address] Social History Tobacco Use Types [...] and Family Not on file 07/29/2020 Attends Pentecostal Services Not on file 07/29 Do you belong to any clubs o r organizations such as protestant groups, unions, fraternal or athletic groups, or [...] st Contact Info) Description 2024 11:00 AM SENIOR APPLICATIONS ANALYST Appointment [facility] [address] [place] [address] 07/21/2024 9:45 AM SENIOR APPLICATIONS ANALYST Appointment [facility] Electronic Page Makeup System Operator [address] [facility] [place] [address] Kiel Vasquez MD [address] [facility] 2014 [place] [address] 07/21/2024 9:53 AM SENIOR APPLICATIONS ANALYST Hospital Encounter [facility] Electronic Page Makeup System Operator [address] [place] [address] Kiel Vasquez MD [facility] S [facility] 2014 [place] [address] Paroxysmal A-fib 07/21/2024 9:53 AM SENIOR APPLICATIONS ANALYST - 07/21/2024 11:46 AM SENIOR APPLICATIONS ANALYST Surgery [facility] Electronic Page Makeup System Operator [address] [place] [phone] Kiel Vasquez MD [address] [place] [address] 2014 [place] [address] Left atrial appendage closure percutaneous 07/28/2024 8:30 AM SENIOR APPLICATIONS ANALYST Office Visit [facility] Oncology and Hematology - [place] 2227 [facility] 200 [place] [address] Nahid Hickman MD 2227 [facility] [address] [place] [address] 09/09/2024 1:00 PM CDT Office Visit [facility] Heart and Vascular At [address] 2014 [place] [address] Kiel Vasquez MD [address] [place] [address] 2014 [place] [address] 12/16/2024 11:00 AM CDT Office Visit [facility] HEART AND VASCULAR EP AT [address] [place] [address] Demetrius Bowling DNP [address] [place] [address] 2014 [place] [address] 02/05/2025 10:45 AM CDT Telephone Check Up [facility] Heart and Vascular At [address] 2014 [place] [address] 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 FNP [address] [place] [address], [place] [address] documented as of this encounter Procedures Procedure Name Priority Date/Time Associated Diagnosis Comments COMPREHENSIVE METABOLIC PANEL Routine 04/21/2024 9:07 AM SENIOR APPLICATIONS ANALYST BASIC METABOLIC PANEL Routine 04/21/2024 8:23 AM SENIOR APPLICATIONS ANALYST CBC WITH DIFFERENTIAL Routine 04/21/2024 8:22 AM SENIOR APPLICATIONS ANALYST documented in this encounter Results * COMPREHENSIVE METABOLIC PANEL (04/21/2024 9:07 AM SENIOR APPLICATIONS ANALYST) Blood Nahid Hickman MD CHEMISTRY ORDERABLES * BASIC METABOLIC PANEL (04/21/2024 8:23 AM SENIOR APPLICATIONS ANALYST) Blood Nahid Hickman MD CHEMISTRY ORDERABLES * CBC WITH DIFFERENTIAL (04/21/2024 8:22 AM SENIOR APPLICATIONS ANALYST) Blood Nahid Hickman MD HEMATOLOGY ORDERABLE S documented in this encounter Visit Diagnoses Not on filedocumented in this encounter Care Teams Pigment Pumper Relationship Specialty Start Date End Date Aliza Bain MD [address] [place] [address] PCP - General Family Practice 11/22/21 documented as of this encounter
--- OUTSIDE RECORDS SUMMARY | 2024-07-01 00:38 | XMS_ITS | Encounter Summary ---
Author Organization [facility] [employer] [facility] Address [address] [place] [address] Care Team Providers Care Hospice Music Therapy Name Role Phone Aliza Bain MD Primary Care Provider Encounter Details Date Type Department Care Team (Late st Contact Info) Description 02/28/2024 Orders Only [facility] Oncology and Hematology - [place] [address] [facility] 200 [place] [address] Nahid Hickman MD [address] [email or web address] [address] [place] [address] Social History Tobacco Use Types [...] and Family Not on file 07/29/2020 Attends Pentecostalism Services Not on file 07/29 Do you [...] st Contact Info) Description 2024 11:00 AM GLOBAL MARKETING INTERN Appointment [facility] [address] [place] [phone] 07/21/2024 9:45 AM GLOBAL MARKETING INTERN Appointment [facility] Math And Sciences Department Chair [address] [facility] [place] [address] Kiel Vasquez MD [address] [facility] 2014 [place] [address] 07/21/2024 9:53 AM GLOBAL MARKETING INTERN Hospital Encounter [facility] Math And Sciences Department Chair [address] [place] [address] Kiel Vasquez MD [facility] S [facility] 2014 [place] [address] Paroxysmal A-fib 07/21/2024 9:53 AM GLOBAL MARKETING INTERN - 07/21/2024 11:46 AM GLOBAL MARKETING INTERN Surgery [facility] Math And Sciences Department Chair [address] [place] [phone] Kiel Vasquez MD [address] [place] [address] 2014 [place] [address] Left atrial appendage closure percutaneous 07/28/2024 8:30 AM GLOBAL MARKETING INTERN Office Visit [facility] Oncology and Hematology - [place] 2227 [facility] 200 [place] [address] Nahid Hickman MD 2227 [facility] [address] [place] [address] 09/09/2024 1:00 PM CDT Office Visit [facility] Heart and Vascular At [address] 2014 [place] [address] Kiel Vasquez MD [address] [place] [address] 2014 [place] [address] 12/16/2024 11:00 AM CDT Office Visit [facility] HEART AND VASCULAR EP AT [address] [place] [address] Demetrius Bowling DNP [address] [place] [address] 2014 [place] [address] 02/05/2025 10:45 AM CDT Telephone Check Up [facility] Heart and Vascular At [address] [place] [address] 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 FNP [address] [place] [address], [place] [address] documented as of this encounter Procedures Procedure Name Priority Date/Time Associated Diagnosis Comments BONE MARROW ASPIRATION & BIOPSY Routine 02/20/2024 11:07 AM CDT documented in this encounter Results * BONE MARROW ASPIRATION AND BIOPSY (02/20/2024 11:07 AM CDT) Bone marrow Nahid Hickman MD PATH/CYTO ORDERABLES COM documented in this encounter Visit Diagnoses Not on filedocumented in this encounter Care Teams Hospice Music Therapy Relationship Specialty Start Date End Date Aliza Bain MD [address] [place] [address] PCP - General Family Practice 11/22/21 documented as of this encounter
--- OUTSIDE RECORDS SUMMARY | 2024-07-01 00:38 | XMS_ITS | Encounter Summary ---
Author Organization [facility] Address [address] [place] [address] Care Team Providers Care Senior Ux Designer Name Role Phone Aliza Bain MD Primary Care Provider Encounter Details Date Type Department Care Team (Late st Contact Info) Description 02/12/2024 Abstract [facility] Heart and Vascular At [address] [place] [address] Kiel Vasquez MD [address] [place] [address] 2014 [place] [address] Social History Tobacco Use Types [...] and Family Not on file 07/29/2020 Attends Holiness Services Not on file 07/29 Do you belong to any clubs o r organizations such as advent groups, unions, fraternal or athletic groups, or [...] st Contact Info) Description 2024 11:00 AM EVENTS MANAGER Appointment [facility] [address] [place] [address] 07/21/2024 9:45 AM EVENTS MANAGER Appointment [facility] Spa Supervisor [address] [place] [address] Kiel Vasquez MD [address] [facility] 2014 [place] [address] 07/21/2024 9:53 AM EVENTS MANAGER Hospital Encounter [facility] Spa Supervisor [address] [place] [address] Kiel Vasquez MD [facility] S [facility] 2014 [place] [address] Paroxysmal A-fib 07/21/2024 9:53 AM EVENTS MANAGER - 07/21/2024 11:46 AM EVENTS MANAGER Surgery [facility] Spa Supervisor [address] [place] [phone] Kiel Vasquez MD [address] [place] [address] 2014 [place] [address] Left atrial appendage closure percutaneous 07/28/2024 8:30 AM EVENTS MANAGER Office Visit [facility] Oncology and Hematology - [place] 2227 [facility] 200 [place] [address] Nahid Hickman MD 2[address] [facility] [address] [place] [address] 09/09/2024 1:00 PM CDT Office Visit [facility] Heart and Vascular At [address] [place] [address] Kiel Vasquez MD [address] [place] [address] 2014 [place] [address] 12/16/2024 11:00 AM CDT Office Visit [facility] HEART AND VASCULAR EP AT [address] [place] [address] Demetrius Bowling DNP [address] [place] [address] 2014 [place] [address] 02/05/2025 10:45 AM CDT Telephone Check Up [facility] Heart and Vascular At [address] [place] [address] 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 FNP [address] [place] [address] documented as of this encounter Visit Diagnoses Not on filedocumented in this encounter Care Teams Senior Ux Designer Relationship Specialty Start Date End Date Aliza Bain MD [address] [place] [address] PCP - General Family Practice 11/22/21 documented as of this encounter
--- OUTSIDE RECORDS SUMMARY | 2024-07-01 00:38 | XMS_ITS | Encounter Summary ---
Author Organization [facility] Address [address] [place] [address] Care Team Providers Care Radiator Repairer Name Role Phone Aliza Bain MD Primary Care Provider Encounter Details Date Type Department Care Team (Late st Contact Info) Description 03/12/2024 Abstract [facility] Heart and Vascular - [facility] [address] [place] [address] 160 [place] [address] Sergey Acosta MD [address] [facility] [address] [place] [address] Social History Tobacco Use Types [...] and Family Not on file 07/29/2020 Attends Amish Services Not on file 07/29 Do you belong to any clubs o r organizations such as adventism groups, unions, fraternal or athletic groups, or [...] st Contact Info) Description 2024 11:00 AM MACHINE LOAD CLERK Appointment [facility] [address] [place] [address] 07/21/2024 9:45 AM MACHINE LOAD CLERK [facility] Physical Therapist Assistant [address] [place] [address] Kiel Vasquez MD [address] [phone] 07/21/2024 9:53 AM MACHINE LOAD CLERK Hospital Encounter [facility] Physical Therapist Assistant [address] [place] [address] Kiel Vasquez MD [facility] S [facility] 2014 [place] [address] Paroxysmal A-fib 07/21/2024 9:53 AM MACHINE LOAD CLERK - 07/21/2024 11:46 AM MACHINE LOAD CLERK Surgery [facility] Physical Therapist Assistant [address] [place] [phone] Kiel Vasquez MD [address] [place] [address] 2014 [place] [address] Left atrial appendage closure percutaneous 07/28/2024 8:30 AM MACHINE LOAD CLERK Office Visit [facility] Oncology and Hematology - [place] 2227 [facility] 200 [place] [address] Nahid Hickman MD 2227 [facility] [address] [place] [address] 09/09/2024 1:00 PM CDT Office Visit [facility] Heart and Vascular At [address] [place] [address] Kiel Vasquez MD [address] [place] [address] 2014 [place] [address] 12/16/2024 11:00 AM CDT Office Visit [facility] HEART AND VASCULAR EP AT [address] [place] [address] Demetrius Bowling DNP [address] [place] [address] 2014 [place] [address] 02/05/2025 10:45 AM CDT Telephone Check Up [facility] Heart and Vascular At [address] [place] [address] 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 FNP [address] [place] [address] documented as of this encounter Visit Diagnoses Not on filedocumented in this encounter Care Teams Radiator Repairer Relationship Specialty Start Date End Date Aliza Bain MD [address] [place] [address] PCP - General Family Practice 11/22/21 documented as of this encounter
--- OUTSIDE RECORDS SUMMARY | 2024-07-01 00:38 | XMS_ITS | Encounter Summary ---
Author Organization [facility] Address [address] [place] [address] Care Team Providers Care Gristmiller Name Role Phone Aliza Bain MD Primary Care Provider Encounter Details Date Type Department Care Team (Late st Contact Info) Description 05/30/2024 Cardiology Conference [facility] Heart and Vascular At [address] [place] [phone] Margie Leonard RN Social History Tobacco Use [...] and Family Not on file 07/29/2020 Attends Alevism Services Not on file 07/29 Do you belong to any clubs o r organizations such as roman catholic groups, unions, fraternal or athletic groups, or [...] st Contact Info) Description 2024 11:00 AM TECH INTERN Appointment [facility] [address] [place] [address] 07/21/2024 9:45 AM TECH INTERN Appointment [facility] Electric Motor Analyst [address] [place] [address] Kiel Vasquez MD [address] [place] [address] 07/21/2024 9:53 AM TECH INTERN Hospital Encounter [facility] Electric Motor Analyst [address] [place] [phone] Kiel Vasquez MD [address] 2014 [place] [address] Paroxysmal A-fib 07/21/2024 9:53 AM TECH INTERN - 07/21/2024 11:46 AM TECH INTERN Surgery [facility] Electric Motor Analyst [address] [place] [phone] Kiel Vasquez MD [address] [place] [address] 2014 [place] [address] Left atrial appendage closure percutaneous 07/28/2024 8:30 AM TECH INTERN Office Visit [facility] Oncology and Hematology - [place] [address] [facility] 200 [place] [address] Nahid Hickman MD 2[address] [facility] [address] [place] [address] 09/09/2024 1:00 PM CDT Office Visit [facility] Heart and Vascular At [address] 2014 [place] [address] Kiel Vasquez MD [address] [place] [address] 2014 [place] [address] 12/16/2024 11:00 AM CDT Office Visit [facility] HEART AND VASCULAR EP AT [address] 2014 [place] [address] Demetrius Bowling DNP [address] [place] [address] 2014 [place] [address] 02/05/2025 10:45 AM CDT Telephone Check Up [facility] Heart and Vascular At [address] 2014 [place] [address] 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 FNP [address] [place] [phone] documented as of this encounter Visit Diagnoses Not on filedocumented in this encounter Care Teams Gristmiller Relationship Specialty Start Date End Date Aliza Bain MD [address] [place] [address] PCP - General Family Practice 11/22/21 documented as of this encounter
--- OUTSIDE RECORDS SUMMARY | 2024-07-01 00:38 | XMS_ITS | Encounter Summary ---
Author Organization [facility] [employer] [facility] Address [address] [place] [address] Care Team Providers Care Acid Changer Name Role Phone Aliza Bain MD Primary Care Provider Encounter Details Date Type Department Care Team (Late st Contact Info) Description 04/18/2024 Orders Only [facility] Oncology and Hematology - [place] [address] [facility] 200 [place] [address] Nahid Hickman MD [address] [employer] [address] [place] [address] Chronic anemia (Primary Dx) Social History Tobacco Use Types [...] and Family Not on file 07/29/2020 Attends Congregational Services Not on file 07/29 Do you belong to any clubs o r organizations such as congregation groups, unions, fraternal or athletic groups, or [...] st Contact Info) Description 2024 11:00 AM MOP HANDLE ASSEMBLER Appointment [facility] [address] [place] [address] 07/21/2024 9:45 AM MOP HANDLE ASSEMBLER Appointment [facility] Paint Process Engineer [address] [place] [address] Kiel Vasquez MD [address] [facility] 2014 [place] [address] 07/21/2024 9:53 AM MOP HANDLE ASSEMBLER Hospital Encounter [facility] Paint Process Engineer [address] [place] [address] Kiel Vasquez MD [address] [facility] 2014 [place] [address] Paroxysmal A-fib 07/21/2024 9:53 AM MOP HANDLE ASSEMBLER - 07/21/2024 11:46 AM MOP HANDLE ASSEMBLER Surgery [facility] Paint Process Engineer [address] [place] [address] Kiel Vasquez MD [facility] 2014 [place] [address] Left atrial appendage closure percutaneous 07/28/2024 8:30 AM MOP HANDLE ASSEMBLER Office Visit [facility] Oncology and Hematology - [place] 2227 [facility] 200 [place] [address] Nahid Hickman MD [address] [facility] [address] [place] [address] 09/09/2024 1:00 PM CDT Office Visit [facility] Heart and Vascular At [address] 2014 [place] [address] Kiel Vasquez MD [facility] 2014 [place] [address] 12/16/2024 11:00 AM CDT Office Visit [facility] HEART AND VASCULAR EP AT [address] [place] [address] Demetrius Bowling DNP [facility] 2014 [place] [address] 02/05/2025 10:45 AM CDT Telephone Check Up [facility] Heart and Vascular At [address] 2014 [place] [address] 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 FNP [facility] [place] [address] Scheduled Orders Name Type Priority Associated Diagnoses Orde r Schedule CBC WITH DIFFERENTIAL Lab Routine Chronic anemia Every Two Weeks for 99 Occurrences starting 04/18/2024 until 04/18/2025 COMPREHENSIVE METABOLIC PANEL Lab Routine Chronic anemia Every Two Weeks for 99 Occurrences starting 04/18/2024 until 04/18/2025 BASIC METABOLIC PANEL Lab Routine Chronic anemia Every Two Weeks for 99 Occurrences starting 04/18/2024 until 04/18/2025 documented as of this encounter Visit Diagnoses Diagnosis Chronic anemia- Primary Anemia, unspecified Paroxysmal atrial fibrillation- Primary Atrial fibrillation Paroxysmal A-fib Atrial fibrillation Paroxysmal A-fib Atrial fibrillation documented in this encounter Care Teams Acid Changer Relationship Specialty Start Date End Date Aliza Bain MD [address] [place] [address] PCP - General Family Practice 11/22/21 documented as of this encounter
--- OUTSIDE RECORDS SUMMARY | 2024-07-01 00:38 | XMS_ITS | Encounter Summary ---
Author Organization [facility] Address [address] [place] [address] Care Team Providers Care Manager Vehicle Name Role Phone Aliza Bain MD Primary Care Provider Encounter Details Date Type Department Care Team (Late st Contact Info) Description 03/11/2024 External Device Data [facility] ABSTRACTION Provider, Abstract NO ADDRESS ON FILE Social History Tobacco Use Types Packs/Day Years [...] and Family Not on file 07/29/2020 Attends Sikhism Services Not on file 07/29 Do you belong to any clubs o r organizations such as sabianism groups, unions, fraternal or athletic groups, or [...] st Contact Info) Description 2024 11:00 AM FINANCIAL REPORTING ADVISOR Appointment [facility] [address] [place] [address] 07/21/2024 9:45 AM FINANCIAL REPORTING ADVISOR Appointment [facility] Sales Expert [address] [place] [address] Kiel Vasquez MD [address] [place] [address] 07/21/2024 9:53 AM FINANCIAL REPORTING ADVISOR Hospital Encounter [facility] Sales Expert [address] [place] [address] Kiel Vasquez MD [address] [place] [address] Jesse Lackey-shirley 07/21/2024 9:53 AM FINANCIAL REPORTING ADVISOR - 07/21/2024 11:46 AM FINANCIAL REPORTING ADVISOR Surgery [facility] Sales Expert [address] [place] [address] Kiel Vasquez MD [address] [place] [address] 2014 [place] [address] Left atrial appendage closure percutaneous 07/28/2024 8:30 AM FINANCIAL REPORTING ADVISOR Office Visit [facility] Oncology and Hematology - [place] 2227 [facility] 200 [place] [address] Nahid Hickman MD [address] [facility] [address] [place] [address] 09/09/2024 1:00 PM CDT Office Visit [facility] Heart and Vascular At [address] 2014 [place] [address] Kiel Vasquez MD [address] [place] [address] 2014 [place] [address] 12/16/2024 11:00 AM CDT Office Visit [facility] HEART AND VASCULAR EP AT [address] [place] [address] Demetrius Bowling DNP [address] [place] [address] 2014 [place] [address] 02/05/2025 10:45 AM CDT Telephone Check Up [facility] Heart and Vascular At [address] 2014 [place] [address] 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 FNP [address] [place] [address] documented as of this encounter Visit Diagnoses Not on filedocumented in this encounter Care Teams Manager Vehicle Relationship Specialty Start Date End Date Aliza Bain MD [address] [place] [address] PCP - General Family Practice 11/22/21 documented as of this encounter
--- OUTSIDE RECORDS SUMMARY | 2024-07-01 00:38 | XMS_ITS | Encounter Summary ---
Author Organization [facility] Address [address] [place] [address] Care Team Providers Care Bag Worker Name Role Phone Aliza Bain MD Primary Care Provider Reason for Referral * Nuclear Medicine (Routine) - Authorized Specialty Diagnoses / Procedures Referred By Meghana t Referred To Contact Radiology Diagnoses Shortness of breath Jaw pain Coronary artery disease, unspecified vessel or lesion type, unspecified whether angina present, unspecified whether kasigl[place] or transplanted heart Procedures NM PHARMACOLOGICAL STRESS TEST Kiel Vasquez MD [address] [facility] 2014 [place] [address] [facility] Nuclear Cardiology [facility] [place] [address] Referral ID Status Reason Start Date Expiration Date V isits Requested Visits Authorized [id number] Authorized 02/13/2024 03/15/2025 1 1 * Nuclear Medicine (Routine) - Pending Review Specialty Diagnoses / Procedures Referred By Contac t Referred To Contact Radiology Diagnoses Shortness of breath Jaw pain Coronary artery disease, unspecified vessel or lesion type, unspecified whether angina present, unspecified whether kasigl[place] or transplanted heart Procedures NM MYOCARD PERF IMAG SPECT Kiel Cuevas MD [address] [facility] 2014 [place] [address] [facility] Nuclear Cardiology [address] [place] [address] Referral ID Status Reason Start Date Expiration Date V isits Requested Visits Authorized [id number] Pending Review 02/13/2024 03/15/2025 1 1 * Echocardiography (Routine) - Pending Review Specialty Diagnoses / Procedures Referred By Contac t Referred To Contact Cardiology Diagnoses Shortness of breath Jaw pain Coronary artery disease, unspecified vessel or lesion type, unspecified whether angina present, unspecified whether kasigl[place] or transplanted heart Procedures ECHO COMPLETE - CONTRAST AND STRAIN IF INDICATED Kiel Vasquez MD [address] [facility] 2014 [place] [address] [facility] Non Invasive Cardiology [address] [place] [address] Referral ID Status Reason Start Date Expiration Date V isits Requested Visits Authorized [id number] Pending Review 02/13/2024 03/15/2025 1 1 Reason for Visit * Reason Onset Date Comments Cardiac rehab 02/13/2024 Encounter Details Date Type Department Care Team (Late st Contact Info) Description 02/13/[address] [facility] Heart and Vascular - [facility] [address] [place] [address] Kiel Vasquez MD [address] [facility] 2014 [place] [address] Cardiac rehab Social History Tobacco Use Types Packs/Day Years [...] and Family Not on file 07/29/2020 Attends Roman Catholic Services Not on file 07/29 Do you belong to any clubs o r organizations such as rastafari groups, unions, fraternal or athletic groups, or [...] encounter Miscellaneous Notes * Telephone Encounter - Carmen Cedeño RN - 02/13/2024 2:48 PM CDT Returned pts call. Discussed recs with pt. Gave pt nearest [facility] location. CTS number given to pt. Pt to hold off on Cardiac Rehab until testing is completed. If symptoms worsen or pt unable to get to lab d/t symptoms, pt to go to ER for further eval and treatment. Called Quin at Cardiac Rehab. Aware pt needs cardiac w/u before resuming Cardiac Rehab. * Telephone Encounter - Carmen Cedeño RN - 02/13/2024 2:40 PM CDT If she feels things are severe she should go to ER If not severe, update TTE, tod MPI, CBC, pBNP. See ELECTRONIC RESOURCES LIBRARIAN next week JG * Telephone Encounter - Carmen Cedeño RN - 02/13/2024 2:09 PM CDT Returned Quin's call. BP has been elevated, except today she said it was good. SOB x 2 weeks. Pt was visibly SOB when she walked into Cardiac Rehab. Lungs CTA. Pt c/o of burning sensation in throatwith radiation to jaw. Occurred last night and lasted most of the night. Pt stated she kept eatingtums and it went away. Pt told Cardiac rehab that she has called here several times w/o a return call. Looks like our office has attempted to return call with Dr. Vasquez's recs and sent a [employer] message, which pt has not read. See TE 02/05/2024. Quin stated pt does not look well, pale. Hx of anemia. CBC ordered. Called and spoke with pt. Pt is unsure at this time if she can drive to get lab work d/t symptoms. Pt does not appear SOB while talking to RN on phone. * Telephone Encounter - Neeru Plummer - 02/13/2024 10:50 AM CDT Cardiac Rehab Quin nurse calling mutual pt. Wants to talk about pt Blood pressure, shortness of breath and explains that she is extremely pale. Call back # [phone] Thank you. documented in this encounter Plan of Treatment Upcoming Encounters Date Type Department Care Team (Late st Contact Info) Description 2024 11:00 AM MECHANICAL CAR CHECKER Appointment [facility] S [facility] [address] [place] [address] 07/21/2024 9:45 AM MECHANICAL CAR CHECKER Appointment [facility] Machine Compositor [address] [place] [address] Kiel Vasquez MD [address] [facility] 2014 [place] [address] 07/21/2024 9:53 AM MECHANICAL CAR CHECKER Hospital Encounter [facility] Machine Compositor [address] [place] [address] Kiel Vasquez MD [address] [facility] 2014 [place] [address] Paroxysmal A-fib 07/21/2024 9:53 AM MECHANICAL CAR CHECKER - 07/21/2024 11:46 AM MECHANICAL CAR CHECKER Surgery [facility] Machine Compositor [address] [place] [address] Kiel Vasquez MD [address] [facility] 2014 [place] [address] Left atrial appendage closure percutaneous 07/28/2024 8:30 AM MECHANICAL CAR CHECKER Office Visit [facility] Oncology and Hematology - [place] [address] [facility] 200 [place] [address] Nahid Hickman MD [address] [facility] [address] [place] [address] 09/09/2024 1:00 PM CDT Office Visit [facility] Heart and Vascular At [address] [place] [address] Kiel Vasquez MD [facility] S [facility] [address] [place] [address] 12/16/2024 11:00 AM CDT Office Visit [facility] HEART AND VASCULAR EP AT [address] [place] [address] Demetrius Bowling DNP [address] [place] [address] [address] 2014 [place] [address] 02/05/2025 10:45 AM CDT Telephone Check Up [facility] Heart and Vascular At [address] [place] [address] 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 FNP [facility] [place] [address] Scheduled Orders Name Type Priority Associated Diagnoses Order Schedule BRAIN NATRIURETIC PEPTIDE, BNP OR PROBNP Lab Routine Shortness of breath Expected: 02/13/2024, Expires: 02/12/2025 ECHO COMPLETE - CONTRAST AND STRAIN IF INDICATED Echocardiogram Routine Shortness of breath Jaw pain Coronary artery disease, unspecified vessel or lesion type, unspecified whether angina present, unspecified whether kasigluk or transplanted heart 1 Occurrences starting 02/13/2024 until 02/12/2025 NM MYOCARD PERF IMAG SPECT MULT Electrophysiology Routine Shortness of breath Jaw pain Coronary artery disease, unspecified vessel or lesion type, unspecified whether angina present, unspecified whether kasigluk or transplanted heart 1 Occurrences starting 02/13/2024 until 02/12/2025 NM PHARMACOLOGICAL STRESS TEST Electrophysiology Routine Shortness of breath Jaw pain Coronary artery disease, unspecified vessel or lesion type, unspecified whether angina present, unspecified whether kasigluk or transplanted heart 1 Occurrences starting 02/13/2024 until 02/12/2025 documented as of this encounter Visit Diagnoses Diagnosis Shortness of breath- Primary Pale Pallor Burning sensation Disturbance of skin sensation Jaw pain Coronary artery disease, unspecified vessel or lesion type, unspecified whether angina present, unspecified whether kasigl[place] or transplanted heart Paroxysmal atrial fibrillation- Primary Atrial fibrillation Paroxysmal A-fib Atrial fibrillation Paroxysmal A-fib Atrial fibrillation documented in this encounter Care Teams Bag Worker Relationship Specialty Start Date End Date Aliza Bain MD [address] [place] [address] PCP - General Family Practice 11/22/21 documented as of this encounter
--- OUTSIDE RECORDS SUMMARY | 2024-07-01 00:38 | XMS_ITS | Encounter Summary ---
Author Organization [facility] Address [address] [place] [address] Care Team Providers Care Radiation Technician Name Role Phone Aliza Bain MD Primary Care Provider Encounter Details Date Type Department Care Team (Late st Contact Info) Description 05/02/2024 Abstract [facility] Heart and Vascular At [address] [place] [address] Kiel Vasquez MD [address] [place] [address] 2014 [place] [address] Social History Tobacco Use Types [...] and Family Not on file 07/29/2020 Attends Buddhism Services Not on file 07/29 Do you belong to any clubs o r organizations such as synagogue groups, unions, fraternal or athletic groups, or [...] st Contact Info) Description 2024 11:00 AM ENGINEERING AND DEVELOPMENT DIRECTOR Appointment [facility] [address] [place] [address] 07/21/2024 9:45 AM ENGINEERING AND DEVELOPMENT DIRECTOR Appointment [facility] Nps [address] [place] [address] Kiel Vasquez MD [address] [facility] 2014 [place] [address] 07/21/2024 9:53 AM ENGINEERING AND DEVELOPMENT DIRECTOR Hospital Encounter [facility] [address] [place] [address] Kiel Vasquez MD [facility] S [facility] 2014 [place] [address] Paroxysmal A-fib 07/21/2024 9:53 AM ENGINEERING AND DEVELOPMENT DIRECTOR - 07/21/2024 11:46 AM ENGINEERING AND DEVELOPMENT DIRECTOR Surgery [facility] [address] [place] [phone] Kiel Vasquez MD [address] [place] [address] 2014 [place] [address] Left atrial appendage closure percutaneous 07/28/2024 8:30 AM ENGINEERING AND DEVELOPMENT DIRECTOR Office Visit [facility] Oncology and Hematology - [place] 2227 [facility] 200 [place] [address] Nahid Hickman MD [address] [facility] [address] [place] [address] 09/09/2024 1:00 PM CDT Office Visit [facility] Heart and Vascular At [address] 2014 [place] [address] Kiel Vasquez MD [address] [place] [address] 2014 [place] [address] 12/16/2024 11:00 AM CDT Office Visit [facility] HEART AND VASCULAR EP AT [address] [place] [address] Demetrius Bowlnig DNP [address] [place] [address] 2014 [place] [address] 02/05/2025 10:45 AM CDT Telephone Check Up [facility] Heart and Vascular At [address] 2014 [place] [address] 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 FNP [address] [place] [address] documented as of this encounter Visit Diagnoses Not on filedocumented in this encounter Care Teams Radiation Technician Relationship Specialty Start Date End Date Aliza Bain MD [address] [place] [address] PCP - General Family Practice 11/22/21 documented as of this encounter
--- OUTSIDE RECORDS SUMMARY | 2024-07-01 00:38 | XMS_ITS | Encounter Summary ---
Author Organization [facility] Address [address] [place] [address] Care Team Providers Care Bone Drier Operator Name Role Phone Aliza Bain MD Primary Care Provider Encounter Details Date Type Department Care Team (Late st Contact Info) Description 06/03/2024 External Device Data STL ABSTRACTION Provider, Abstract [...] any clubs o r organizations such as shinto groups, unions, fraternal or athletic groups, or [...] st Contact Info) Description 2024 11:00 AM SKATES OPERATOR Appointment [facility] [address] [place] [address] 07/21/2024 9:45 AM SKATES OPERATOR Appointment [facility] Branding Specialist [address] [place] [address] Kiel Vasquez MD [address] [place] [address] 07/21/2024 9:53 AM SKATES OPERATOR Hospital Encounter [facility] Branding Specialist [address] [place] [address] Kiel Vasquez MD [address] [place] [address] Jesse Lackey-shirley 07/21/2024 9:53 AM SKATES OPERATOR - 07/21/2024 11:46 AM SKATES OPERATOR Surgery [facility] Branding Specialist [address] [place] [address] Kiel Vasquez MD [address] [place] [address] 2014 [place] [address] Left atrial appendage closure percutaneous 07/28/2024 8:30 AM SKATES OPERATOR Office Visit [facility] Oncology and Hematology - [place] 2227 [facility] 200 [place] [address] Nahid Hickman MD [address] [facility] [address] [place] [address] 09/09/2024 1:00 PM CDT Office Visit [facility] Heart and Vascular At [address] [place] [address] Kiel Vasquez MD [address] [place] [address] 2014 [place] [address] 12/16/2024 11:00 AM CDT Office Visit [facility] HEART AND VASCULAR EP AT [address] [place] [address] Demetrius Bowling DNP [address] [place] [address] 2014 [place] [address] 02/05/2025 10:45 AM CDT Telephone Check Up [facility] Heart and Vascular At [address] [place] [address] 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 FNP [address] [place] [address] documented as of this encounter Visit Diagnoses Not on filedocumented in this encounter Care Teams Bone Drier Operator Relationship Specialty Start Date End Date Aliza Bain MD [address] [place] [address] PCP - General Family Practice 11/22/21 documented as of this encounter
--- OUTSIDE RECORDS SUMMARY | 2024-07-01 00:38 | XMS_ITS | Encounter Summary ---
Author Organization [facility] Address [address] [place] [address] Care Team Providers Care Wrapper Sheeter Name Role Phone Aliza Bain MD Primary Care Provider Reason for Referral * CT Scan (Routine) - Closed Specialty Diagnoses / Procedures Referred By Meghana vigil Referred To Contact Diagnoses Paroxysmal atrial fibrillation Procedures CT HEART CARD STRUC W 3D W CONT 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 FNP [address] [place] [address] Scan [address] [place] [address] Referral ID Status Reason Start Date Expiration Date Visits Re quested Visits Authorized [id number] Closed 05/28/2024 06/17/2024 1 1 OFFICE REPRESENTATIVE Encounter Details Date Type Department Care Team (Latest Contact Info) Description 05/01/2024 Cardiology Conference [facility] Fresh Foods Technician [address] [place] [address] 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 FNP [address] [place] [address] Paroxysmal atrial fibrillation (Primary Dx) Social History Tobacco Use Types [...] and Family Not on file 07/29/2020 Attends Spiritism Services Not on file 07/29 Do you belong to any clubs o r organizations such as yarsani groups, unions, fraternal or athletic groups, or [...] as of this encounter Progress Notes * CoeMakenzie FNP - 05/01/2024 1:57 PM CST Patient seen by Dr. Vasquez for LAAO consult. Reason for LAAO: history of major bleed Patient not on OAC for AFIB d/t acute blood loss anemia. GFR >60 Nickel allergy? No Chronic lung disease no LLUVIA no CAD yes CHADSVASC: 4 CHF no LV Dysfunction no HTN yes DM no Stroke no TIA no Thromboembolic event no Vascular disease yes if yes, vascular disease type: CAD and CABG HAS-BLED 3 Uncontrolled HTN (SBP >160 despite medical therapy) no Abnormal renal function no Abnormal liver function no Stroke no Bleeding yes Labile INR no Alcohol no Antiplatelet medication yes NSAIDS no Stroke and Bleeding Risk Factors Increased risk of falls no Clinically relevant bleeding event yes, if yes, bleeding event type other. If yes, Genetic coagulopathy no, if yes, concurrent anticoagulant therapy yes Rhythm History Afib yes Aflutter no Attempt at afib/flutter termination yes? If yes, pharmacological Screening CTA ordered OFFICE REPRESENTATIVE documented in this encounter Plan of Treatment Upcoming Encounters Date Type Department Care Team (Late st Contact Info) Description 2024 11:00 AM HOME OFFICE REPRESENTATIVE Appointment [facility] S [facility] [address] [place] [address] 07/21/2024 9:45 AM HOME OFFICE REPRESENTATIVE Appointment [facility] Fresh Foods Technician [address] [place] [address] Kiel Vasquez MD [address] [facility] 2014 [place] [address] 07/21/2024 9:53 AM HOME OFFICE REPRESENTATIVE Hospital Encounter [facility] Fresh Foods Technician [address] [place] [address] Kiel Vasquez MD [address] [facility] 2014 [place] [address] Paroxysmal A-fib 07/21/2024 9:53 AM HOME OFFICE REPRESENTATIVE - 07/21/2024 11:46 AM HOME OFFICE REPRESENTATIVE Surgery [facility] Fresh Foods Technician [address] [place] [address] Kiel Vasquez MD [address] [place] [address] 2014 [place] [address] Left atrial appendage closure percutaneous 07/28/2024 8:30 AM HOME OFFICE REPRESENTATIVE Office Visit [facility] Oncology and Hematology - [place] [address] [facility] 200 [place] [phone] Nahid Hickman MD [address] [facility] [address] [place] [address] 09/09/2024 1:00 PM CDT Office Visit [facility] Heart and Vascular At [address] 2014 [place] [address] iKel Vasquez MD [address] [place] [address] 2014 [place] [address] 12/16/2024 11:00 AM CDT Office Visit [facility] HEART AND VASCULAR EP AT [address] [place] [address] Demetrius Bowling DNP [address] [place] [address] 2014 [place] [address] 02/05/2025 10:45 AM CDT Telephone Check Up [facility] Heart and Vascular At [address] 2014 [place] [address] 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 FNP [address] [place] [phone] documented as of this encounter Results * CT HEART CARD STRUC W 3D W CONT (05/28/2024 10:15 AM HOME OFFICE REPRESENTATIVE) Anatomical Region Laterality Modality Chest Computed Tomogra phy 05/28/2024 10:1 2 AM HOME OFFICE REPRESENTATIVE Impressions 05/28/2024 1:09 PM HOME OFFICE REPRESENTATIVE IMPRESSION: 5 pulmonary veins . Thank you for this referral. The examination was performed with the adjustment of mA according to the patient size and/or the use of Iterative Reconstruction Technique. ?? Dictated by Dr. Berny Green MD DICTATION LOCATION: 1 Narrative 05/28/2024 1:09 PM HOME OFFICE REPRESENTATIVE CT HEART CARDIAC STRUCTURES W 3D W CONTRAST (CT Left Atrial Appendage Occlusion) DATE: 05/28/2024 10:15 AM HISTORY: Paroxysmal atrial fibrillation. Cardiac mapping study for occlusion of the left atrial appendage. COMPARISON: None.. PROCEDURE: ?? 90 mL of Isovue-300 contrast IV. Dual phase contrast protocol. 256-slice Gated Computed tomography (CT) of the heart. Images acquired in both arterial and delayed venous phases. Images obtained from the sternal notch through 2-3 cm below the left hemidiaphragm. Images reconstructed at 11 % of the R-R interval. Limited full uuneu-cq-vowl contrast CT of the chest performed for review of noncardiac pathology. Curved-plane reformatted images , Maximum Intensity Projection (MIP) images and Volume Rendered (VR) images created on a 3-D Postprocessing workstation. The examination was performed with the adjustment of mA according to the patient size and/or the use of Iterative Reconstruction Technique. CT dose length product 525.16 mGy-cm. Findings: Left Atrium: ??Normal size ??Depth 3.6 x width 6.5 x height 6.3 cm. ??No PFO Left atrial Appendage: ??Morphology: Cauliflower ??Thrombus present : No ??GIA: ?Base: ?2.6 x 2.2 cm. ?Area: 4.2 sq cm. ?Perimeter: 7.5 cm. ?Neck: ?2.4 x 2.1 cm. ?Area: 3.6 sq cm. ?Perimeter: 7.0 cm. ?Base to landing zone: 1.8 cm. Mitral valve: Normal. Mitral annulus: Normal. Right sided pulmonary veins: Right upper PV: ?? Drains the right upper and middle lobes. Right middle PV: Drains the superior segment right lower lobe. Right lower PV: ?? Drains the right lower lobe. Left sided pulmonary veins: Left upper PV: ? Drains the left upper lobe and lingula. Left lower PV: ?Drains the left lower lobe. Cardiac findings: Right atrium: ??Normal. ?? Right ventricle: ??Normal. Left ventricle: ??Normal. ?? Coronary arteries: CABG with a patent left internal mammary artery to distal LAD bypass graft, patent bypass graft to the distal dominant RCA and a patent bypass graft to the distal obtuse marginal territories. Aortic valve: Normal. Aorta: ?Aortic arch configuration: Left-sided aortic arch. ?Separate takeoffs of the innominate, left carotid and left subclavian arteries. ??Minor calcification scattered throughout the aortic arch. Scattered calcified and irregular noncalcified plaques throughout the descending thoracic aorta. Pericardium: ??Normal. Pleura: Normal Pulmonary arteries: No pulmonary emboli seen. Contrast CT of the Chest: No adenopathy. Tiny calcified pulmonary nodule lateral basal segment left lower lobe. Minor areas of atelectasis in the medial lung bases. Significant contrast reflux into the IVC and hepatic veins suggestive of tricuspid insufficiency. 3.7 cm exophytic left renal cyst. Minor degenerative changes throughout the lower thoracic spine. Median sternotomy wires. The medial portions of the breasts are normal.. INCIDENTAL FINDINGS: ??Patent 3 vessel bypass grafts. Procedure Note Berny Green MD - 05/28/2024 CT HEART CARDIAC STRUCTURES W 3D W CONTRAST (CT Left Atrial Appendage Occlusion) DATE: 05/28/2024 10:15 AM HISTORY: Paroxysmal atrial fibrillation. Cardiac mapping study for occlusion of the left atrial appendage. COMPARISON: None.. PROCEDURE: 90 mL of Isovue-300 contrast IV. Dual phase contrast protocol. 256-slice Gated Computed tomography (CT) of the heart. Images acquired in both arterial and delayed venous phases. Images obtained from the sternal notch through 2-3 cm below the left hemidiaphragm. Images reconstructed at 11 % of the R-R interval. Limited full rmemf-ur-huam contrast CT of the chest performed for review of noncardiac pathology. Curved-plane reformatted images , Maximum Intensity Projection (MIP) images and Volume Rendered (VR) images created on a 3-D Postprocessing workstation. The examination was performed with the adjustment of mA according to the patient size and/or the use of Iterative Reconstruction Technique. CT dose length product 525.16 mGy-cm. Findings: Left Atrium: Normal size Depth 3.6 x width 6.5 x height 6.3 cm. No PFO Left atrial Appendage: Morphology: Cauliflower Thrombus present : No GIA: Base: 2.6 x 2.2 cm. Area: 4.2 sq cm. Perimeter: 7.5 cm. Neck: 2.4 x 2.1 cm. Area: 3.6 sq cm. Perimeter: 7.0 cm. Base to landing zone: 1.8 cm. Mitral valve: Normal. Mitral annulus: Normal. Right sided pulmonary veins: Right upper PV: Drains the right upper and middle lobes. Right middle PV: Drains the superior segment right lower lobe. Right lower PV: Drains the right lower lobe. Left sided pulmonary veins: Left upper PV: Drains the left upper lobe and lingula. Left lower PV: Drains the left lower lobe. Cardiac findings: Right atrium: Normal. Right ventricle: Normal. Left ventricle: Normal. Coronary arteries: CABG with a patent left internal mammary artery to distal LAD bypass graft, patent bypass graft to the distal dominant RCA and a patent bypass graft to the distal obtuse marginal territories. Aortic valve: Normal. Aorta: Aortic arch configuration: Left-sided aortic arch. Separate takeoffs of the innominate, left carotid and left subclavian arteries. Minor calcification scattered throughout the aortic arch. Scattered calcified and irregular noncalcified plaques throughout the descending thoracic aorta. Pericardium: Normal. Pleura: Normal Pulmonary arteries: No pulmonary emboli seen. Contrast CT of the Chest: No adenopathy. Tiny calcified pulmonary nodule lateral basal segment left lower lobe. Minor areas of atelectasis in the medial lung bases. Significant contrast reflux into the IVC and hepatic veins suggestive of tricuspid insufficiency. 3.7 cm exophytic left renal cyst. Minor degenerative changes throughout the lower thoracic spine. Median sternotomy wires. The medial portions of the breasts are normal.. INCIDENTAL FINDINGS: Patent 3 vessel bypass grafts. IMPRESSION: 5 pulmonary veins . Thank you for this referral. The examination was performed with the adjustment of mA according to the patient size and/or the use of Iterative Reconstruction Technique. Dictated by Dr. Berny Green MD DICTATION LOCATION: 1 Makenzie Ziyad Saravanan [facility] CT ORDERABLES documented in this encounter Visit Diagnoses Diagnosis Paroxysmal atrial fibrillation- Primary Atrial fibrillation Paroxysmal atrial fibrillation Atrial fibrillation Paroxysmal atrial fibrillation- Primary Atrial fibrillation Paroxysmal A-fib Atrial fibrillation Paroxysmal A-fib Atrial fibrillation documented in this encounter Care Teams Wrapper Sheeter Relationship Specialty Start Date End Date Aliza Bain MD [address] [place] [phone] PCP - General Family Practice 11/22/21 documented as of this encounter
--- OUTSIDE RECORDS SUMMARY | 2024-07-01 00:38 | XMS_ITS | Encounter Summary ---
Author Organization [facility] [employer] [facility] Address [address] [place] [address] Care Team Providers Care Skiver Machine Operator Name Role Phone Aliza Bain MD Primary Care Provider Encounter Details Date Type Department Care Team (Late st Contact Info) Description 05/28/2024 Orders Only [facility] Oncology and Hematology - [place] [address] [facility] 200 [place] [address] Nahid Hickman MD [address] [place] [address] Social History Tobacco Use Types [...] and Family Not on file 07/29/2020 Attends Taoist Services Not on file 07/29 Do you belong to any clubs o r organizations such as faith groups, unions, fraternal or athletic groups, or [...] st Contact Info) Description 2024 11:00 AM [employer] OFFICER Appointment [facility] [address] [place] [phone] 07/21/2024 9:45 AM [employer] OFFICER Appointment [facility] Manager Of Corporate Communications [address] [facility] [place] [address] Kiel Vasquez MD [address] [facility] 2014 [place] [address] 07/21/2024 9:53 AM [employer] OFFICER Hospital Encounter [facility] Manager Of Corporate Communications [address] [place] [address] Kiel Vasquez MD [facility] S [facility] 2014 [place] [address] Paroxysmal A-fib 07/21/2024 9:53 AM [employer] OFFICER - 07/21/2024 11:46 AM [employer] OFFICER Surgery [facility] Manager Of Corporate Communications [address] [place] [phone] Kiel Vasquez MD [address] [place] [address] 2014 [place] [address] Left atrial appendage closure percutaneous 07/28/2024 8:30 AM [employer] OFFICER Office Visit [facility] Oncology and Hematology - [place] [address] [facility] 200 [place] [address] Nahid Hickman MD [address] [facility] [address] [place] [address] 09/09/2024 1:00 PM CDT Office Visit [facility] Heart and Vascular At [address] [place] [address] Kiel Vasquez MD [address] [place] [address] 2014 [place] [address] 12/16/2024 11:00 AM CDT Office Visit [facility] HEART AND VASCULAR EP AT [address] [place] [address] Demetrius Bowling DNP [address] [place] [address] 2014 [place] [address] 02/05/2025 10:45 AM CDT Telephone Check Up [facility] Heart and Vascular At [address] [place] [address] 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 FNP [address] [place] [address], [place] [address] documented as of this encounter Procedures Procedure Name Priority Date/Time Associated Diagnosis Comments COMPREHENSIVE METABOLIC PANEL Routine 05/26/2024 3:01 PM [employer] OFFICER BASIC METABOLIC PANEL Routine 05/26/2024 1:17 PM [employer] OFFICER CBC WITH DIFFERENTIAL Routine 05/26/2024 1:16 PM [employer] OFFICER documented in this encounter Results * COMPREHENSIVE METABOLIC PANEL (05/26/2024 3:01 PM [employer] OFFICER) Blood Nahid Hickman MD CHEMISTRY ORDERABLES * BASIC METABOLIC PANEL (05/26/2024 1:17 PM [employer] OFFICER) Blood Nahid Hickman MD CHEMISTRY ORDERABLES * CBC WITH DIFFERENTIAL (05/26/2024 1:16 PM [employer] OFFICER) Blood Nahid Hickman MD HEMATOLOGY ORDERABLE S documented in this encounter Visit Diagnoses Not on filedocumented in this encounter Care Teams Skiver Machine Operator Relationship Specialty Start Date End Date Aliza Bain MD [address] [place] [address] PCP - General Family Practice 11/22/21 documented as of this encounter
--- OUTSIDE RECORDS SUMMARY | 2024-07-01 00:38 | XMS_ITS | Encounter Summary ---
Author Organization [facility] Address [address] [place] [address] Care Team Providers Care Components Engineer Name Role Phone Aliza Bain MD Primary Care Provider Encounter Details Date Type Department Care Team (Late st Contact Info) Description 03/04/2024 External Device Data STL ABSTRACTION Provider, Abstract [...] and Family Not on file 07/29/2020 Attends Jehovah'S Witness Services Not on file 07/29 Do you belong to any clubs o r organizations such as spiritism groups, unions, fraternal or athletic groups, or [...] st Contact Info) Description 2024 11:00 AM TRANSITION TEACHER Appointment [facility] [address] [place] [address] 07/21/2024 9:45 AM TRANSITION TEACHER Appointment [facility] Mobile Crane Operator [address] [place] [phone] Kiel Vasquez MD [address] 2014 [place] [address] 07/21/2024 9:53 AM TRANSITION TEACHER Hospital Encounter [facility] Mobile Crane Operator [address] [place] [address] Kiel Vasquez MD [address] [place] [address] Jesse Lackey-shirley 07/21/2024 9:53 AM TRANSITION TEACHER - 07/21/2024 11:46 AM TRANSITION TEACHER Surgery [facility] Mobile Crane Operator [address] [place] [address] Kiel Vasquez MD [address] [place] [address] 2014 [place] [address] Left atrial appendage closure percutaneous 07/28/2024 8:30 AM TRANSITION TEACHER Office Visit [facility] Oncology and Hematology - [place] 2227 [facility] 200 [place] [address] Nahid Hickman MD [address] [facility] [address] [place] [address] 09/09/2024 1:00 PM CDT Office Visit [facility] Heart and Vascular At [address] [place] [address] Kiel Vasquez MD [address] [place] [address] 2014 [place] [address] 12/16/2024 11:00 AM CDT Office Visit [facility] HEART AND VASCULAR EP AT [address] [place] [address] Demetrius Bowling DNP [address] [place] [address] 2014 [place] [address] 02/05/2025 10:45 AM CDT Telephone Check Up [facility] Heart and Vascular At [address] [place] [address] 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 FNP [address] [place] [address] documented as of this encounter Visit Diagnoses Not on filedocumented in this encounter Care Teams Components Engineer Relationship Specialty Start Date End Date Aliza Bain MD [address] [place] [address] PCP - General Family Practice 11/22/21 documented as of this encounter
--- OUTSIDE RECORDS SUMMARY | 2024-07-01 00:38 | XMS_ITS ---
Author Organization [facility] Candi Beal Address [address] [facility] [place] [place] [address] Care Team Providers Care Computer Patternmaker Name Role Phone Aliza Bain MD Primary Care Provider Active Problems Patient Care Coordination No te Formatting of this note migh t be different from the original. Kiel Vasquez MD--Associate Vice President ([facility] Heart and Vascular @ ) Problem Noted Date Diagnosed Date Coronary artery disease 10/19/2023 Mixed hyperlipidemia 01/23/2023 Chronic diastolic dysfunction 12/15/2021 MGUS (monoclonal gammopathy of unknown significa nce) 03/15/2021 Benign hypertension 10/01/2020 Carotid artery disease 10/01/2020 Non-small cell cancer of right lung 08/13/2020 Atrial fibrillation Exertional shortness of breath Current Oncology Plans No current plan information found. Past Plans No past plan information found. Radiation Treatments * No radiation treatments are documented for this patient in [facility]. Treatments may have been administered in another system. Lifetime Dose Tracking * Chemical Lifetime Dose Automatic Entry Manual Entr y Effective Dose 0.9 mSv 0.9 mSv 0 mSv Total DLP 525.16 DLP 525.16 DLP 0 DLP CTDIvol Max 21.96 mGy 21.96 mGy 0 mGy Air Kerma 113 mGy 0 mGy 113 mGy Dose Area Product (DAP) 6.33 Gy-cm2 0 Gy-cm2 6.33 Gy-cm2
--- OUTSIDE RECORDS SUMMARY | 2024-07-01 00:38 | XMS_ITS | Encounter Summary ---
Author Organization [facility] [employer] [facility] Address [address] [place] [address] Care Team Providers Care Forest Law And Policy Professor Name Role Phone Aliza Bain MD Primary Care Provider Encounter Details Date Type Department Care Team (Late st Contact Info) Description 04/08/2024 Orders Only [facility] Oncology and Hematology - [place] [address] [facility] 200 [place] [address] Nahid Hickman MD [address] [employer] [address] [place] [address] Social History Tobacco Use Types [...] and Family Not on file 07/29/2020 Attends Faith Services Not on file 07/29 Do you belong to any clubs o r organizations such as orthodoxy groups, unions, fraternal or athletic groups, or [...] st Contact Info) Description 2024 11:00 AM LUNCH COOK Appointment [facility] [address] [place] [address] 07/21/2024 9:45 AM LUNCH COOK Appointment [facility] Chocolate Dipper [address] [facility] [place] [address] Kiel Vasquez MD [address] [facility] 2014 [place] [address] 07/21/2024 9:53 AM LUNCH COOK Hospital Encounter [facility] [employer] [address] [place] [address] Kiel Vasquez MD [facility] S [facility] 2014 [place] [address] Paroxysmal A-fib 07/21/2024 9:53 AM LUNCH COOK - 07/21/2024 11:46 AM LUNCH COOK Surgery [facility] [employer] [address] [place] [phone] Kiel Vasquez MD [address] [place] [address] 2014 [place] [address] Left atrial appendage closure percutaneous 07/28/2024 8:30 AM LUNCH COOK Office Visit [facility] Oncology and Hematology - [place] [address] [facility] 200 [place] [address] Nahid Hickman MD [address] [facility] [address] [place] [address] 09/09/2024 1:00 PM CDT Office Visit [facility] Heart and Vascular At [address] 2014 [place] [address] Kiel Vasquez MD [address] [place] [address] 2014 [place] [address] 12/16/2024 11:00 AM CDT Office Visit [facility] HEART AND VASCULAR EP AT [address] [place] [address] Demetrius Bowling DNP [address] [place] [address] 2014 [place] [address] 02/05/2025 10:45 AM CDT Telephone Check Up [facility] Heart and Vascular At [address] 2014 [place] [address] 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 FNP [address] [place] [address], [place] [address] documented as of this encounter Procedures Procedure Name Priority Date/Time Associated Diagnosis Comments BASIC METABOLIC PANEL Routine 04/07/2024 11:53 AM CDT CBC WITH DIFFERENTIAL Routine 04/07/2024 11:36 AM CDT documented in this encounter Results * BASIC METABOLIC PANEL (04/07/2024 11:53 AM CDT) Blood Nahid Hickman MD CHEMISTRY ORDERABLES * CBC WITH DIFFERENTIAL (04/07/2024 11:36 AM CDT) Blood Nahid Hickman MD HEMATOLOGY ORDERABLE S documented in this encounter Visit Diagnoses Not on filedocumented in this encounter Care Teams Forest Law And Policy Professor Relationship Specialty Start Date End Date Aliza Bain MD [address] [place] [address] PCP - General Family Practice 11/22/21 documented as of this encounter
--- OUTSIDE RECORDS SUMMARY | 2024-07-01 00:38 | XMS_ITS | Encounter Summary ---
Author Organization [facility] [employer] [facility] Address [address] [place] [address] Care Team Providers Care Meeting Facilitator Name Role Phone Aliza Bain MD Primary Care Provider Reason for Visit * Reason Comments Cancer Encounter Details Date Type Department Care Team (Late st Contact Info) Description 03/10/2024 10:15 AM CDT Office Visit [facility] Oncology and Hematology - [place] [address] [facility] [address] [place] [address] Nahid Hickman MD [address] [facility] [address] [place] [address] Chronic anemia (Primary Dx) Social History Tobacco Use Types Packs/Day Years Used Date Smoking Tobacco: Former Cigarettes 0.5 40 0 08/19/1959 - 08/19/1999 Smokeless Tobacco: Never Tobacco Cessation:Counseling Given: Not [...] and Family Not on file 07/29/2020 Attends Muslim Services Not on file 07/29 Do you [...] Sign Reading Time Taken Comments Blood Pressure 139/56 03/10/2024 10:03 AM CDT Pulse 66 03/10/2024 10:03 AM CDT Temperature 36.3 ??C (97.3 ??F) 03/10/2024 10:03 AM C DT Respiratory Rate 15 03/10/2024 10:03 AM CDT Oxygen Saturation 95% 03/10/2024 10:03 AM CDT Inhaled Oxygen Concentration - - Weight 54.2 kg (119 lb 6.4 oz) 03/10/2024 10:03 AM CDT Height - - Body Mass Index 21.15 11/22/2023 9:43 AM CDT documented in this encounter Progress Notes * Nahid Hickman MD - 03/10/2024 11:20 AM CDT HEMATOLOGY / ONCOLOGY PROGRESS NOTE Patient Identification: Name: Cassandra Martinez Age: 78 y.o. 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 Is statuspost CT-guided biopsy of right upper lobe lung mass on July 19, 2020 that showed well differentiated adenocarcinoma. Molecular profile showed positive K-fifi mutation in exon 2 and PD-L1 expressionof 2%. Negative ALK gene rearrangement. Monoclonal gammopathy of unknown significance CURRENT TREATMENT Iron twice a day TREATMENT HISTORY Right upper lobe lobectomy done on August 31, 2020. 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 Status post ablation for the atrial fibrillation in August 2021 Bone marrow aspiration and biopsy was performed on February 20, 2024 EGD done on February 16, 2024 came back normal. Colonoscopy done on February 18 showed diverticulosis and internal hemorrhoid without any active bleeding. Patient received 3 units of packed red blood cells on February 15, 2024. SUBJECTIVE Patient given to the office for follow-up visit after recent admission to the hospital where she was found to have hemoglobin of 4.5. She received 2 units of packed red blood cell. Patient had EGD and colonoscopy done. She also had bone marrow biopsy done. Her hemoglobin has improved. She is feeling better. No active bleeding. No other new complaints. Review of system Constitutional: denies fevers, sweats.Improvement in tiredness and fatigue HEENT: denies sinus congestion, hearing or vision problems Respiratory: denies cough, complain of some shortness of breath and dyspnea on exertion Cardiovascular: denies chest pain, exertional chest pressure/discomfort, nausea, syncope, denies any cough and shortness of breath GI: denies constipation, diarrhea, dsyphagia, reflux symptoms, vomiting, melena : denies dysuria, frequency, incontinence, urgency Integumentary system: no lymphadenopathy, sweats, flushing Musculoskeletal: denies: myalgia, denies any back pain Neurological: denies blurry or disturbed vision, numbness/weakness, dizziness Skin: No lumps, bumps or rashes. 12 point review of system was reviewed Objective: Vital signs in last 24 hours: As per nursing note Exam: General appearance: alert, cooperative, no distress, appears stated age Head: normocephalic, without obvious abnormality, atraumatic Eyes: conjunctivae/corneas clear, EOM's intact Ears: normal external ear canals AU Nose: Nares normal. Septum midline. Mucosa normal. No drainage or sinus tenderness Throat: Lips, mucosa, and tongue normal. Teeth and gums normal Neck: supple, symmetrical, trachea midline. Lungs: clear to auscultation bilaterally Heart: regular rate and rhythm, S1, S2 normal, no murmur, click, rub or gallop Abdomen: soft, non-tender. Bowel sounds normal. No masses, No organomegaly Extremities: extremities normal, atraumatic, no cyanosis or edema Skin: Skin color, texture, turgor normal. No rashes or lesions Lymph nodes: No lymphadenopathy Neuro: No obvious focal deficit Exam as above PATH LABS Labs from 10/26/2020 showed creatinine 0.8 total bilirubin 0.5 WBC 6 hemoglobin 11 platelet 217,000 Labs from March 09 showed creatinine 1.0 hemoglobin level normal total bilirubin 0.4 WBC 5.7 hemoglobin 10.5 platelet 233,000 Labs from June 13 showed vitamin B12 more than thousand iron 54 saturation 15% ferritin 24 TSH 1.17 creatinine 1 total bilirubin 0.3 Labs from November 16 showed creatinine 1.1 total protein #0 WBC 7.5 hemoglobin 10.6 platelet 348,000 iron 51 iron saturation 15% ferritin 31 vitamin B12 more than 1000 Labs from May 29 showed creatinine 1.0 calcium 9.4 vitamin B12 975 hemoglobin 10.9 WBC 6 platelets 315,000 immunoglobulin levels normal iron 165 saturation 47% ferritin 34.2 serum protein electrophoresis showed M spike of 0.8 g/dL kappa light chain 20.7 lambda light chain 87.5 with ratio of 0.24 Labs from November 27 showed IgA 410 hemoglobin 10.7 creatinine 0.9 calcium 9.3 M spike 0.8 [place] lightchain 26.2 lambda light chain 97 Labs from May 28 showed creatinine 1.0 GFR 54 hemoglobin 10.7 Labs from November 26 showed kappa light chain 48 lambda 161 ratio 0.25 creatinine 0.9 hemoglobin 9.4 MCV 94 IgA 530 serum protein electrophoresis showed M spike of 0.9 g/dL Labs from March 07 showed WBC 10.0 hemoglobin 9.1 MCV 99 platelet 404,000 neutrophils 56% lymphocyte 18% monocyte 24% creatinine 1.0 B12 more than 1000 iron 128 saturation 33 ferritin 133 Assessment: Plan: Patient Active Problem List Diagnosis Date Noted Coronary artery disease 10/19/2023 Mixed hyperlipidemia 01/23/2023 Chronic diastolic dysfunction 12/15/2021 Exertional shortness of breath MGUS (monoclonal gammopathy of unknown significance) 03/15/2021 Benign hypertension 10/01/2020 Carotid artery disease 10/01/2020 Atrial fibrillation Non-small cell cancer of right lung 08/13/2020 Normocytic anemia. Bone marrow aspiration and biopsy done on February 20, 2024 showed hypercellularmarrow with erythroid hyperplasia and myeloid and megakaryocytic atypia with mild involvement with plasma cells about 7%. These findings is consistent with myelodysplastic syndrome/myeloproliferative disorders. I will order myeloid panel by [facility]. Follow-up in 4 weeks to discuss treatment with hypomethylating agent. In the meantime she will continue oral iron twice a day. Iron levels normal. B12 normal. 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 Now status post right upper lobe lobectomy done on August 31, 2020. Pathology showed tumor 3.6 cm size withoutvisceral pleural invasion and lymphovascular invasion. All 5 lymph nodes from level 10 and 11 came back negative for malignancy. Previously CT-guided biopsy of right upper lobe lung mass on July 19, 2020 that showed well differentiated adenocarcinoma. Molecular profile showed positive K-fifi mutation in exon 2 and PD-L1 expression of 2%. Negative ALK gene rearrangement. CT scan done in November showed no evidence of relapse of disease. Repeat CT scan chest will be done in4 months. MGUS. Bone marrow biopsy showed 7% plasma cells neoplasm. Will repeat myeloma testing in 6 months. Coronary artery disease status post coronary artery bypass grafting in October 25, 2023. She will follow-up with Dr Mccord. Atrial fibrillation status post ablation. She is asymptomatic. 03/10/2024 Nahid Hickman MD documented in this encounter Plan of Treatment Upcoming Encounters Date Type Department Care Team (Late st Contact Info) Description 2024 11:00 AM MAMMOGRAPHY TECHNICIAN Appointment [facility] [address] [place] [address] 07/21/2024 9:45 AM MAMMOGRAPHY TECHNICIAN Appointment [facility] Display Card Writer [address] [place] [address] Kiel Vasquez MD [address] [facility] [address] [place] [address] 07/21/2024 9:53 AM MAMMOGRAPHY TECHNICIAN Hospital Encounter [facility] [address] [place] [address] Kiel Vasquez MD [address] [facility] [address] [place] [address] Paroxysmal A-fib 07/21/2024 9:53 AM MAMMOGRAPHY TECHNICIAN - 07/21/2024 11:46 AM MAMMOGRAPHY TECHNICIAN Surgery [facility] [address] [place] [address] Kiel Vasquez MD [address] [facility] [address] [place] [address] Left atrial appendage closure percutaneous 07/28/2024 8:30 AM MAMMOGRAPHY TECHNICIAN Office Visit [facility] Oncology and Hematology - [place] [address] [place] [phone] Nahid Hickman MD [address] [phone] 09/09/2024 1:00 PM CDT Office Visit [facility] [address] [facility] [address] [place] [address] Kiel Vasquez MD [address] [facility] [address] [place] [address] 12/16/2024 11:00 AM CDT Office Visit [facility] HEART AND VASCULAR EP AT [facility] [address] [facility] [address] [place] [phone] Demetrius Bowling DNP [address] [place] [phone] 02/05/2025 10:45 AM CDT Telephone Check Up [facility] [address] [facility] [address] [place] [phone] 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 FNP [address] [place] [address] Scheduled Orders Name Type Priority Associated Diagnoses Orde r Schedule FERRITIN Lab Routine Chronic anemia Expected: 04/09/2024, Expires: 03/10/2025 IRON, TIBC, AND PERCENT SATURATION Lab Routine Chronic anemia Expected: 04/09/2024, Expires: 03/10/2025 VITAMIN B12 LEVEL Lab Routine Chronic anemia Expected: 04/09/2024, Expires: 03/10/2025 MISCELLANEOUS LAB TEST Lab Routine Chronic anemia Expected: 03/10/2024, Expires: 03/10/2025 documented as of this encounter Procedures Procedure Name Priority Date/Time Associated Diagnosis Comments [facility] HEMAT[facility]IC MALIGNANCY (DNA AND RNA) Routine 03/22/2024 8:23 PM CDT Chronic anemia documented in this encounter Results * [facility] HEMATOLOGIC MALIGNANCY (DNA AND RNA) (03/22/2024 8:23 PM CDT) [facility] [email or web address] [email or web address] [email or web address] 03/22/2024 8:23 PM CDT [facility] Comment:[facility] link Reason for Study To identify somatic and germline mutations relevant to patient's cancer. 03/22/2024 8:23 PM CDT [facility] Genetic Diseases Assessed Cancer 03/22/2024 8:23 PM CDT [facility] Description of Ranges of DNA Sequences Examined 648 gene panel 03/22/2024 8:23 PM CDT [facility] Overall Interpretation positive 03/22/2024 8:23 PM CDT [facility] xR Result 1 NEGATIVE Negative - This report is being issued to report the results of gene rearrangement and altered splicing analysis from RNA sequencing. No gene rearrangements nor reportable altered splicing events were identified from RNA sequencing. 03/22/2024 8:23 PM CDT [facility] Treatment Implications Note No reportable treatment options found. 03/22/2024 8:23 PM CDT [facility] Trial Count 1 03/22/2024 8:23 PM CDT [facility]: Clinical Trial Match 1 Clinical Trial NCT ID: [id number] Clinical Trial Title: Azacitidine and Quizartinib for the Treatment of Myelodysplastic Syndrome or Myelodysplastic/My eloproliferative Neoplasm With FLT3 or CBL Mutations Clinical Trial URL: [email or web address]://clinicaltr ials.gov/ct2/show/ [email or web address] Clinical Phase: Phase 1/Phase 2 Clinical Trial Matches: CBL p.R420Q mutation Clinical Trial Distance and Location: 698 mi, [place], [place] 03/22/2024 8:23 PM CDT [facility] Low Coverage Regions [id number] 03/22/2024 8:23 PM CDT [facility] Blood specimen (specimen) 03/12/2024 1:55 PM CDT Narrative This result has genomic variants that were not included in this document. Nahid Hickman MD MOLECULAR ORDERABLES [facility] [address], [address] [place] [address], [facility] [address], [address] [place] [address] documented in this encounter Visit Diagnoses Diagnosis Chronic anemia- Primary Anemia, unspecified Paroxysmal atrial fibrillation- Primary Atrial fibrillation Paroxysmal A-fib Atrial fibrillation Paroxysmal A-fib Atrial fibrillation documented in this encounter Care Teams Meeting Facilitator Relationship Specialty Start Date End Date Aliza Bain MD [address] [place] [address] PCP - General Family Practice 11/22/21 documented as of this encounter
--- OUTSIDE RECORDS SUMMARY | 2024-07-01 00:38 | XMS_ITS | Encounter Summary ---
Author Organization [facility] [employer] [facility] Address [address] [place] [address] Care Team Providers Care Vegetable Washing Machine Operator Name Role Phone Aliza Bain MD Primary Care Provider Encounter Details Date Type Department Care Team (Late st Contact Info) Description 03/10/2024 Orders Only [facility] Oncology and Hematology - [place] [address] [facility] [address] [place] [address] Nahid Hickman MD [address] [place] [address] Social History Tobacco Use Types [...] and Family Not on file 07/29/2020 Attends [employer]enomin[employer] Services Not on file 07/29 Do you belong to any clubs o r organizations such as taoism groups, unions, fraternal or athletic groups, or [...] st Contact Info) Description 2024 11:00 AM LINOLEUM LAYER HELPER Appointment [facility] [address] [place] [address] [place] [phone] 07/21/2024 9:45 AM LINOLEUM LAYER HELPER Appointment [facility] [address] [facility] [address] Kiel Vasquez MD [address] [facility] [address] [place] [address] 07/21/2024 9:53 AM LINOLEUM LAYER HELPER Hospital Encounter [facility] [address] [place] [address] Kiel Vasquez MD [facility] [address] [facility] [address] [place] [address] Paroxysmal A-fib 07/21/2024 9:53 AM LINOLEUM LAYER HELPER - 07/21/2024 11:46 AM LINOLEUM LAYER HELPER Surgery [facility] [address] [place] [phone] Kiel Vasquez MD [address] [place] [address] [address] [place] [address] Left atrial appendage closure percutaneous 07/28/2024 8:30 AM LINOLEUM LAYER HELPER Office Visit [facility] Oncology and Hematology - [place] [address] [facility] [address] [place] [address] Nahid Hickman MD [address] [facility] [address] [place] [address] 09/09/2024 1:00 PM CDT Office Visit [facility] Heart and Vascular At [address] [place] [address] Kiel Vasquez MD [address] [place] [address] [address] [place] [address] 12/16/2024 11:00 AM CDT Office Visit [facility] HEART AND VASCULAR EP AT [address] [place] [address] Demetrius Bowling DNP [address] [place] [address] [address] [place] [address] 02/05/2025 10:45 AM CDT Telephone Check Up [facility] Heart and Vascular At [address] [place] [address] 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 FNP [address] [place] [address], [place] [address] documented as of this encounter Procedures Procedure Name Priority Date/Time Associated Diagnosis Comments BASIC METABOLIC PANEL Routine 03/07/2024 12:29 PM CDT documented in this encounter Results * BASIC METABOLIC PANEL (03/07/2024 12:29 PM CDT) Blood Nahid Hickman MD CHEMISTRY ORDERABLES documented in this encounter Visit Diagnoses Not on filedocumented in this encounter Care Teams Vegetable Washing Machine Operator Relationship Specialty Start Date End Date Aliza Bain MD [address] [place] [address] PCP - General Family Practice 11/22/21 documented as of this encounter
--- OUTSIDE RECORDS SUMMARY | 2024-07-01 00:38 | XMS_ITS | Encounter Summary ---
Author Organization [facility] Address [address] [place] [address] Care Team Providers Care Software Asset Manager Name Role Phone Aliza Bain MD Primary Care Provider Reason for Visit * Reason Comments Follow Up AF, HTN, lung CA, PA D, HLD, former smoker Encounter Details Date Type Department Care Team (Late st Contact Info) Description 03/25/2024 1:30 PM CDT Office Visit [facility] Heart and Vascular At [place] [address] [facility] [address] [place] [address] Kiel Vasquez MD [address] [place] [address] [address] [place] [address] Coronary artery disease, unspecified vessel or lesion type, unspecified whether angina present, unspecified whether [place] or transplanted heart (Primary Dx); Chronic diastolic dysfunction; Benign hypertension; Mixed hyperlipidemia; Paroxysmal atrial fibrillation Social History Tobacco Use Types Packs/Day Years [...] and Family Not on file 07/29/2020 Attends Confucianism Services Not on file 07/29 Do you [...] Sign Reading Time Taken Comments Blood Pressure 140/52 03/25/2024 1:30 PM CDT Pulse 52 03/25/2024 1:30 PM CDT Temperature - - Respiratory Rate - - Oxygen Saturation 99% 03/25/2024 1:30 PM CDT Inhaled Oxygen Concentration - - Weight 54.4 kg (120 lb) 03/25/2024 1:30 PM CDT Height 160 cm (5' 3 ) 03/25/2024 1:30 PM CDT Body Mass Index 21.26 03/25/2024 1:30 PM CDT documented in this encounter Progress Notes * Tom Nino - 03/25/2024 1:30 PM CDT 4 mo f/u on AF, HTN, lung CA, PAD, HLD, former smoker. SOB with and without exertion. Intermittent mild LH/dizziness. Fatigued. * Kiel Vasquez MD - 03/25/2024 1:30 PM CDT [facility] Heart and Vascular Primary Care Physician: Aliza Bain MD Problem List #. CAD - CABG 10/2023 (WESLEY-LAD, SVG-OM, SVG-RCA) #. afib #. HTN #. 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 Carotid artery stenosis #. Prior tobacco abuse History Of Present Illness Cassandra Martinez is a delightful 78 y.o. female with the above mentioned medical problems. She had been reporting dyspnea and fatigue, Dr. Vasquez had sent her for stress test which was abnormal, she she had an outpatient cath on 10/18 which revealed severe critical disease, she remained hospitalized and underwent CABG on 10/21, had some recurrent A-fib postop, treated with amiodarone, shewas discharged home on POD #8. She was doing well until recently. She became weak with low energy and fatigue, very pale. She was found to have a Hgb in the 4-5 range. She was admitted at an OSH and had upper and lower endoscopy without any obvious causes for anemia. She is scheduled to have a capsule endoscopy soon. She has been back on eliquis and still feels weak and is pale. No light-headedness or syncope. Taking meds. No bleeding or neuro symptoms. Weight similar to recent past. Has 2 children, 3 grand children, 3 great grand children in [facility]. Past Medical History Past Medical History: Diagnosis Date Arthritis Dyspnea on exertion GERD (gastroesophageal reflux disease) HTN (hypertension) Hx of degenerative disc disease Injury of back DDD Malignant neoplasm of lung Family History Family History Problem Relation Name Age of Onset Heart Disease Father Heart Disease Mother Stroke Sister Asthma Sister Social History reports that she quit smoking about 24 years ago. Her smoking use included cigarettes. She started smoking about 64 years ago. She has a 20 pack-year smoking history. She has never used smokeless tobacco. She reports current alcohol use. She reports that she does not use drugs. Review of Systems See HPI Physical Exam Vitals: 03/25/24 1330 BP: (!) 140/52 Pulse: (!) 52 SpO2: 99% Weight: 54.4 kg (120 lb) Height: 5' 3 (1.6 m) General: no distress, oriented, looks well CV: normal neck veins, normal auscultated S1/2, no extra heart sounds or gallops, no murmurs, well healed sternotomy Lungs: clear to auscultation bilaterally, no wheezes, rales, rhonchi Ext: no edema, warm, pulses intact Laboratory Data No results found for this visit on 03/25/24 (from the past 24 hour(s)). Lab Results Component Value Date/Time WBC 14.5 (H) 10/29/2023 01:54 AM HGB 9.4 (L) 10/29/2023 01:54 AM HGBPOC 9.1 (L) 10/24/2023 04:56 AM HCT 28.6 (L) 10/29/2023 01:54 AM HCTPOC 27 (L) 10/24/2023 04:56 AM PLT 245 10/29/2023 01:54 AM MCV 90.8 10/29/2023 01:54 AM No results found for: TSH , TSHULTRA , THYROIDSTIM Lab Results Component Value Date/Time CHOLTOT 151 10/19/2023 09:58 AM HDL 44 10/19/2023 09:58 AM LDLCALC 90 10/19/2023 09:58 AM TRIGLYCERIDE 83 10/19/2023 09:58 AM Lab Results Component Value Date/Time NA 136 10/29/2023 01:54 AM K 4.2 10/29/2023 01:54 AM CL 102 10/29/2023 01:54 AM CO2 24 10/29/2023 01:54 AM CA 8.5 (L) 10/29/2023 01:54 AM BUN 22 10/29/2023 01:54 AM CREAT 1.03 (H) 10/29/2023 01:54 AM GLUCOSE 117 (H) 10/29/2023 01:54 AM ANIONGAP 10 10/29/2023 01:54 AM ECG #. afib Non-Invasive Testing #. 2020 event monitor - afib #. 2020 holter - 14 additional autotriggered/asympotmatic transmissions revealing atrial fibrillation #. 2021 MPI - no ischemia #. 2021 TTE - EF normal, DD, no VHD #. 2023 MPI - + ischemia #. 2023 TTE - EF normal Cardiac Catheterization #. 2023 - severe ostial left main, ostial RCA --> CABG Impression/Plan Cassandra Martinez is a delightful 78 y.o. female with the below cardiac diagnoses who presents for eval of afib, diastolic dysfunction, HTN Coronary artery disease - Stable. Denies any chest pain or SOB. Will continue with medical management. -Continue to monitor for symptoms -Continue antiplatelet therapy with aspirin 81mg daily -Continue anti-anginal medications metoprolol -HTN, HLD management as below Atrial fibrillation - [id number] = 4. PVI 2021. Unexplained profound anemia requiring admission and3u PRBC at OSH recently, GI workup so far has been unrevealing -Will continue rate control with metoprolol -hold eliquis for now given profound unexplained anemia -proceed with capsule endoscopy -we discussed LAAO with watchman/amulet devices, discussed risks and benefits -if a GI source cannot be found, I feel that she would be an unsuitable care home candidate for OACand would recommend LAAO -will readdress in 1 month once she has had completed GI eval Chronic diastolic dysfunction- Euvolemic, well compensated -continue BP control with olmesartan -continue diuresis PRN Hypertension - BP well controlled. Will continue current medications. -Continue olmesartan PAD - carotid artery stenosis -follows with vascular -cont aspirin RTC 1-2 months * diet, exercise, and smoking cessation concepts/benefits discussed for long- term CV health * Patient instructed to call with questions or problems/symptoms; if severe or refractory symptoms,patient instructed to go to ED Thank you for giving me the opportunity to participate in the care of your patient, please do not hesitate to contact me with any questions or concerns. Kiel Vasquez MD [facility] - Heart and Vascular General, Interventional, and Structural Cardiology Vascular Medicine and Intervention [address] [facility] [address] [place] [address] Office Office Medications Current Outpatient Medications: atorvastatin (LIPITOR) 40 mg tablet, TAKE 1 TABLET BY MOUTH DAILY AT BEDTIME, Disp: 90 Tablet, Rfl:3 metoprolol tartrate (LOPRESSOR) 25 mg tablet, Take 1 Tablet (25 mg) by mouth 2 times daily. (Patient taking differently: Take 50 mg by mouth 2 times daily.), Disp: 180 Tablet, Rfl: 3 pyRIDostigmine (MESTINON) 60 mg tablet, Take 60 mg by mouth 3 times daily., Disp: , Rfl: apixaban (Eliquis) 5 mg tablet, Take 1 Tablet (5 mg) by mouth 2 times daily., Disp: 180 Tablet, Rfl: 3 acetaminophen-codeine (TYLENOL #3) 300-30 mg tablet, Take 1 Tablet by mouth every 6 hours as needed. STOPPED, Disp: , Rfl: pantoprazole (PROTONIX) 20 mg Tablet, Delayed Release (E.C.), Take 20 mg by mouth 2 times daily., Disp: , Rfl: cyanocobalamin (VITAMIN B-12) 100 mcg tablet, Take 100 mcg by mouth daily., Disp: , Rfl: calcium-cholecalciferol (OS-SUSAN 500+D) 500 mg(1,250mg) -200 unit tablet, Take 1 Tablet by mouth daily., Disp: , Rfl: magnesium oxide 250 mg magnesium Tablet, Take by mouth., Disp: , Rfl: aspirin (ECOTRIN EC) 81 mg Tablet, Delayed Release (E.C.), Take 81 mg by mouth daily., Disp: , Rfl: cholecalciferol, vitamin D3, (VITAMIN D3 ORAL), Take by mouth., Disp: , Rfl: olmesartan (BENICAR) 40 mg tablet, Take 40 mg by mouth daily. Medication bottle is Olmesartan Medoxomil 40 MG tab1 tab by mouth daily, Disp: , Rfl: documented in this encounter Miscellaneous Notes * Patient Instructions - Kiel Vasquez MD - 03/25/2024 2:14 PM CDT 1) stop eliquis 2) return in 1 month documented in this encounter Plan of Treatment Upcoming Encounters Date Type Department Care Team (Late st Contact Info) Description 2024 11:00 AM TRANSCRIPTION Appointment [facility] [address] [place] [address] 07/21/2024 9:45 AM TRANSCRIPTION Appointment [facility] [address] [place] [address] Kiel Vasquez MD [address] [facility] [address] [place] [address] 07/21/2024 9:53 AM TRANSCRIPTION Hospital Encounter [facility] [address] [place] [address] Kiel Vasquez MD [address] [facility] [address] [place] [address] Paroxysmal A-fib 07/21/2024 9:53 AM TRANSCRIPTION - 07/21/2024 11:46 AM TRANSCRIPTION Surgery [facility] [address] [place] [address] Kiel Vasquez MD [address] [facility] [address] [place] [address] Left atrial appendage closure percutaneous 07/28/2024 8:30 AM TRANSCRIPTION Office Visit [facility] Oncology and Hematology - [place] [address] [place] [phone] Nahid Hickman MD [address] [facility] [address] [place] [address] 09/09/2024 1:00 PM CDT Office Visit [facility] Heart and Vascular At [address] [place] [address] Kiel Vasquez MD [facility] [address] [facility] [address] [place] [address] 12/16/2024 11:00 AM CDT Office Visit [facility] HEART AND VASCULAR EP AT [address] [place] [address] Demetrius Bowling DNP [address] [place] [address] [address] [place] [address] 02/05/2025 10:45 AM CDT Telephone Check Up [facility] Heart and Vascular At [address] [place] [address] 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, [place] [address] [place] [address] documented as of this encounter Visit Diagnoses Diagnosis Coronary artery disease, unspecified vessel or lesion type, unspecified whether angina present, unspecified whether [place] or transplanted heart- Primary Chronic diastolic dysfunction Chronic diastolic heart failure Benign hypertension Essential hypertension, benign Mixed hyperlipidemia Paroxysmal atrial fibrillation Atrial fibrillation Paroxysmal atrial fibrillation- Primary Atrial fibrillation Paroxysmal A-fib Atrial fibrillation Paroxysmal A-fib Atrial fibrillation documented in this encounter Care Teams Software Asset Manager Relationship Specialty Start Date End Date Aliza Bain MD [address] [place] [address] PCP - General Family Practice 11/22/21 documented as of this encounter
--- OUTSIDE RECORDS SUMMARY | 2024-07-01 00:38 | XMS_ITS | Encounter Summary ---
Author Organization [facility] Address [address] [place] [address] Care Team Providers Care Business Analysis Consultant Name Role Phone Aliza Bain MD Primary Care Provider Reason for Referral * CT Scan (Routine) - Closed Specialty Diagnoses / Procedures Referred By Contac t Referred To Contact Diagnoses Paroxysmal atrial fibrillation Procedures CT HEART CARD STRUC W 3D W Makenzie Lee FNP [address] [place] [address] Scan [address] [place] [address] Referral ID Status Reason Start Date Expiration Date Visits Re quested Visits Authorized [id number] Closed 05/28/2024 06/17/2024 1 1 [facility] Reason for Visit * CT Scan (Routine) - Closed Specialty Diagnoses / Procedures Referred By Contac t Referred To Contact Diagnoses Paroxysmal atrial fibrillation Procedures CT HEART CARD STRUC W 3D W Makenzie Lee FNP [address] [place] [address] [place] [address] Referral ID Status Reason Start Date Expiration Date Visits Re quested Visits Authorized [id number] Closed 05/28/2024 06/17/2024 1 1 Encounter Details Date Type Department Care Team (Latest Contact Info) Description 05/28/2024 9:52 AM [facility] - 05/28/2024 11:59 PM [facility] Hospital Encounter [facility] Scan [address] [place] [phone] 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, CAT [address] [place] [address] Discharge Disposition: Home or Self Care Social History Tobacco Use Types Packs/Day Years [...] and Family Not on file 07/29/2020 Attends Sikh Services Not on file 07/29 Do you belong to any clubs o r organizations such as oriental orthodox groups, unions, fraternal or athletic groups, or [...] on file documented as of this encounter Medications at Time of Discharge Medication Sig Dispensed Refills Start Date End Date ondansetron (ZOFRAN ODT) 8 mg Tablet, Rapid Dissolve Dissolve 1 tablet on top of tongue then swallow with saliva every 8 hours as needed for nausea or vomiting 30 Tablet 1 04/25/2024 ferrous sulfate 325 mg (65 mg iron) tablet Take 1 Tablet by mouth 2 times daily. 02/21/2024 fluticasone propionate (FLONASE) 50 mcg/spray Edward, Suspension nasal inhaler Administer 2 Sprays in each nostril daily. atorvastatin (LIPITOR) 40 mg tablet Take 1 Tablet (40 mg) by mouth daily at bedtime. 90 Tablet 3 03/25/2024 metoprolol tartrate (LOPRESSOR) 25 mg tablet Take 1 Tablet (25 mg) by mouth 2 times daily. 180 Tablet 3 11/21/2023 pyRIDostigmine (MESTINON) 60 mg tablet Take 60 mg by mouth daily. 1/2 TABLET IN THE AM AND 1/2 TAB IN THE PM 08/29/2022 acetaminophen-codeine (TYLENOL #3) 300-30 mg tablet Take 1 Tablet by mouth every 6 hours as needed. STOPPED pantoprazole (PROTONIX) 20 mg Tablet, Delayed Release (E.C.) Take 20 mg by mouth 2 times daily. NEEDED cyanocobalamin (VITAMIN B-12) 100 mcg tablet Take 100 mcg by mouth daily. calcium-cholecalcifero l (OS-SUSAN 500+D) 500 mg(1,250mg) -200 unit tablet [...] 40 MG tab1 tab by mouth daily documented as of this encounter Plan of Treatment Upcoming Encounters Date Type Department Care Team (Late st Contact Info) Description 2024 11:00 AM [facility] AND EDGER Appointment [facility] [address] [place] [address] 07/21/2024 9:45 AM [facility] C[facility] AND EDGER Appointment [facility] [address] [place] [address] Kiel Vasquez MD [address] [facility] 2014 [place] [address] 07/21/2024 9:53 AM [facility] [facility] AND EDGER Hospital Encounter [facility] [address] [place] [address] Kiel Vasquez MD [address] [facility] 2014 [place] [address] Paroxysmal A-fib 07/21/2024 9:53 AM [facility] C[employer] AND EDGER - 07/21/2024 11:46 AM [facility] EDGER Surgery [facility] [address] [place] [address] Kiel Vasquez MD [address] [facility] 2014 [place] [address] Left atrial appendage closure percutaneous 07/28/2024 8:30 AM [facility] [employer] C[employer] AND EDGER Office Visit [facility] Oncology and Hematology - [place] [address] [place] [address] Nahid Hickman MD [address] [facility] [address] [place] [address] 09/09/2024 1:00 PM CDT Office Visit [facility] Heart and Vascular At [address] [place] [address] Kiel Vasquez MD [facility] S [facility] [address] [place] [address] 12/16/2024 11:00 AM CDT Office Visit [facility] HEART AND VASCULAR EP AT [address] [place] [address] Demetrius Bowling DNP [address] [place] [address] [address] [place] [address] 02/05/2025 10:45 AM CDT Telephone Check Up [facility] Heart and Vascular At [address] [place] [phone] 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 FNP [facility] [place] [address] documented as of this encounter Procedures Procedure Name Priority Date/Time Associated Diagnosis Comments CT HEART CARD STRUC W 3D W CONT Routine 05/28/2024 10:15 AM [facility] AND EDGER Paroxysmal atrial fibrillation POC CREATININE Routine 05/28/2024 10:09 AM [facility] C[employer] AND EDGER documented in this encounter Results * CT HEART CARD STRUC W 3D W CONT (05/28/2024 10:15 AM PREC[facility] L[employer] CENTERER AND EDGER) Anatomical Region Laterality Modality Chest Computed Tomogra phy 05/28/2024 10:1 2 AM [facility] C[employer]ER AND EDGER Impressions 05/28/2024 1:09 PM [facility] L[employer] C[employer]ER AND EDGER IMPRESSION: 5 pulmonary veins . Thank you for this referral. The examination was performed with the adjustment of mA according to the patient size and/or the use of Iterative Reconstruction Technique. ?? Dictated by Dr. Berny Green MD DICTATION LOCATION: 1 Narrative 05/28/2024 1:09 PM PRECISION L[employer] C[employer]ER AND EDGER CT HEART CARDIAC STRUCTURES W 3D W [...] % of the R-R interval. Limited full ecqkx-yp-[id number] contrast CT of the chest performed for [...] % of the R-R interval. Limited full [id number] contrast CT of the chest performed for [...] Appendage: Morphology: Cauliflower Thrombus present : No IGA: Base: 2.6 x 2.2 cm. Area: 4.2 [...] Berny Green MD DICTATION LOCATION: 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 [facility] CT ORDERABLES * POC CREATININE (05/28/2024 10:09 AM PRECISION LENS CENTERER AND EDGER) CREATININE POC 1.00 0.50 - 1.00 mg/dL 05/28/2024 10:09 AM PREC[facility] LENS CENTERER AND EDGER [facility] Comment:The GFR result is no t clinically significant on patients <18 or >70 years of age. GFR POC 57 mL/min/1.7 3 sq meter 05/28/2024 10:09 AM PREC[facility] LENS CENTERER AND EDGER [facility] Comment:eGFR calculated with 2020 CKD-EPI equation. Vegetarian diet, extremely high or low muscle mass, and may affect results. Cystatin C with Glomerular Filtration Rate is a suitable alternative for these patients. Blood, whole 05/28/2024 10:0 9 AM PREC[facility] C[employer]ER AND EDGER 05/28/2024 10:13 AM PREC[facility] CENTERER AND EDGER 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 CREAM DUMPER POINT OF CARE TESTIN Patrick Performing Organization Address City/State/[facility] Co de Phone Number [facility]# [id number] [address] [facility] [address] documented in this encounter Visit Diagnoses Diagnosis Paroxysmal atrial fibrillation Atrial fibrillation Paroxysmal atrial fibrillation- Primary Atrial fibrillation Paroxysmal A-fib Atrial fibrillation Paroxysmal A-fib Atrial fibrillation documented in this encounter Administered Medications Inactive Administered Medications - up to 3 most recent administrations Medication Order MAR Action Action Date Dose Rate Site iopamidoL (ISOVUE-300) 61% injection (drawn from multi-use bulk pack) 90 mL 90 mL, IV, INTRA-PROCEDURE ONCE, 1 dose, Starting on Sun05/28/24 at 1016, Until Sun05/28/24 at 1017, Routine Contrast Given 05/28/2024 10:17 AM [facility] C[employer]ER AND EDGER 90 mL documented in this encounter Care Teams Business Analysis Consultant Relationship Specialty Start Date End Date Aliza Bain MD [address] [place] [address] PCP - General Family Practice 11/22/21 documented as of this encounter
--- OUTSIDE RECORDS SUMMARY | 2024-07-01 00:38 | XMS_ITS | Clinical Summary ---
Author Organization [facility] Candi Beal Address [address] [place] [address] Care Team Providers Care Glass Beveler Name Role Phone Aliza Bain MD Primary Care Provider Allergies Active Allergy Reactions Criticality Noted Date Comments Penicillins Hives High 07/29/2020 Tolerates Ancef Medications Medication Sig Dispensed Refills Start Date End Date Status olmesartan (BENICAR) 40 mg tablet Take 40 mg by mouth daily. Medication bottle is Olmesartan Medoxomil 40 MG tab1 tab by mouth daily Active cyanocobalamin (VITAMIN B-12) 100 mcg tablet Take 100 mcg by mouth daily. Active calcium-cholecalci ferol (OS-SUSAN 500+D) 500 mg(1,250mg) -200 unit tablet Take 1 Tablet by mouth daily. Active magnesium oxide 250 mg magnesium Tablet Take by mouth. Active aspirin (ECOTRIN EC) 81 mg Tablet, Delayed Release (E.C.) Take 81 mg by mouth daily. Active cholecalciferol, vitamin D3, (VITAMIN D3 ORAL) Take by mouth. Act tania pantoprazole (PROTONIX) 20 mg Tablet, Delayed Release (E.C.) Take 20 mg by mouth 2 times daily. NEEDED Active acetaminophen-code ine (TYLENOL #3) 300-30 mg tablet Take 1 Tablet by mouth every 6 hours as needed. STOPPED Active pyRIDostigmine (MESTINON) 60 mg tablet Take 60 mg by mouth daily. 1/2 TABLET IN THE AM AND 1/2 TAB IN THE PM 08/29/2022 Active metoprolol tartrate (LOPRESSOR) 25 mg tablet Take 1 Tablet (25 mg) by mouth 2 times daily. 180 Tablet 3 11/21/2023 Active Additional Information Patient taking differently: 50 mgOral TWO TIMES DAILY, Reported on 03/10/2024 ferrous sulfate 325 mg (65 mg iron) tablet Take 1 Tablet by mouth 2 times daily. 02/21/2024 Active fluticasone propionate (FLONASE) 50 mcg/spray Emery, Suspension nasal inhaler Administer 2 Sprays in each nostril daily. Active atorvastatin (LIPITOR) 40 mg tablet Take 1 Tablet (40 mg) by mouth daily at bedtime. 90 Tablet 3 03/25/2024 Active ondansetron (ZOFRAN ODT) 8 mg Tablet, Rapid Dissolve Dissolve 1 tablet on top of tongue then swallow with saliva every 8 hours as needed for nausea or vomiting 30 Tablet 1 04/25/2024 Active Active Problems Patient Care Coordination No te Formatting of this note migh t be different from the original. Kiel Vasquez MD--Cryogenics Repairer ([facility] @ ) Problem Noted Date Diagnosed Date Coronary artery disease 10/19/2023 Mixed hyperlipidemia 01/23/2023 Chronic diastolic dysfunction 12/15/2021 MGUS (monoclonal gammopathy of unknown significa nce) 03/15/2021 Benign hypertension 10/01/2020 Carotid artery disease 10/01/2020 Non-small cell cancer of right lung 08/13/2020 Atrial fibrillation Exertional shortness of breath Encounters Date Type Department Care Team Description 06/30/2024 Orders Only [facility] Oncology and Hematology - [place] [address] [place] [phone] Nahid Hickman MD 06/24/2024 9:00 AM DIRECTOR MICROBIOLOGY Office Visit [facility] - [place] [address] [place] [address] Ruth Miller MD Malignant neoplasm of right upper lobe of lung (Primary Dx) 06/24/2024 Telephone [facility] Vascular At [place] [address] [facility] [address] [place] [address] Kiel Vasquez MD Preop Exam 06/23/2024 Orders Only [facility]ematology - [place] [address] [place] [address] Nahid Hickman MD Chronic anemia 06/09/2024 Orders Only [facility] H[facility]ology [facility] [address] [place] [address] Nahid Hickman MD Chronic anemia 06/03/2024 External Device Data STL ABSTRACTION Provider, Abstract 05/30/2024 Cardiology Conference [facility] At [address] [place] [address] Margie Leonard, RN 05/30/2024 Cardiology Conference [facility] At [address] [place] [address] Margie Leonard, RN 05/30/2024 Prep for Surgery [facility] At [address] [place] [address] Margie Leonard, RN 05/28/2024 9:52 AM DIRECTOR MICROBIOLOGY - 05/28/2024 11:59 PM DIRECTOR MICROBIOLOGY Hospital Encounter [address] [address] 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, MACHINE MAINTENANCE REPAIRER Discharge Disposition: Home or Self Care 05/28/2024 Orders Only [facility]ology - [place] [address] [place] [address] Nahid Hickman MD 05/26/2024 Orders Only [facility]ology [place] [address] [place] [address] Nahid Hickman MD Chronic anemia 05/21/2024 Abstract [facility] [address] [place] [address] Nahid Hickman MD 05/20/2024 9:00 AM DIRECTOR MICROBIOLOGY Office Visit [facility] Oncology [facility] Hematology - [place] [address] [place] [phone] Nahid Hickman MD Chronic anemia (Primary Dx) 05/20/2024 Orders Only [facility] Hematology - [place] [address] [place] [address] Nahid Hickman MD 05/12/2024 Orders Only [facility]ematology - [place] [address] [place] [phone] Nahid Hickman MD Chronic anemia 05/07/2024 Orders Only [facility]ematology - [place] [address] [place] [phone] Nahid Hickman MD 05/02/2024 Abstract [facility] At [address] [place] [address] Kiel Vasquez MD 05/01/2024 Cardiology Conference [facility] Manager Fleet [address] [place] [address] 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 FNP Paroxysmal atrial fibrillation (Primary Dx) 04/28/2024 Orders Only [facility] Oncology and Hematology - [place] [address] [place] [address] Nahid Hickman MD Chronic anemia 04/25/2024 Telephone [facility] At [address] [place] [address] Kiel Vasquez MD Medication Question 04/25/2024 Refill [facility]ematology - [place] [address] [place] [address] Yasmin Lam MD 04/23/2024 Abstract [facility]ematology - [place] [address] [place] [address] Nahid Hickman MD 04/22/2024 Telephone [facility]ematology - [place] [address] [place] [address] Yasmin Lam MD vaccine questions 04/22/2024 Orders Only [facility] Oncology [facility] Hematology - [place] [address] [place] [address] Nahid Hickman MD 04/18/2024 Refill [facility] On[facility] Hematology - [place] [address] [place] [address] Yasmin Lma MD 04/18/2024 Orders Only [facility] On[facility] Hematology - [place] [address] [place] [address] Nahid Hickman MD Chronic anemia (Primary Dx) 04/09/2024 3:30 PM CDT Office Visit [facility] Oncology and Hematology - [place] [address] [place] [address] Nahid Hickman MD Chronic anemia (Primary Dx); Malignant neoplasm of right upper lobe of lung 04/08/2024 Orders Only [facility] Oncology and Hematology - [place] [address] [place] [address] Nahid Hickman MD from Last 3 Months Immunizations Name Administration Dates Next Due (PNEUMOVAX 23)(50 YRS UP) PN EUMOCOCCAL POLYSACCHARIDE (PPV23) 0.5 ML, IM 04/07/2021 INFLUENZA VACCINE HIGH DOSE QUADRIVALENT 65 YR UP PF IM 04/07/2021,04/26/2017 Influenza Vaccine High Dose 65+ Yrs IM 8 Zoster Vaccine Live SQ 05/26/2016 Family History Medical History Relation Name Comments Heart Disease Father Heart Disease Mother Asthma Sister Stroke Sister Relation Name Status Comments Father Mother Sister Social History Tobacco Use Types Packs/Day Years [...] any clubs o r organizations such as jain groups, unions, fraternal or athletic groups, or [...] Sign Reading Time Taken Comments Blood Pressure 158/69 06/24/2024 9:37 AM DIRECTOR MICROBIOLOGY Pulse 56 06/24/2024 9:34 AM DIRECTOR MICROBIOLOGY Temperature 36.7 ??C (98 ??F) 06/24/2024 9:34 AM DIRECTOR MICROBIOLOGY Respiratory Rate 15 06/24/2024 9:34 AM DIRECTOR MICROBIOLOGY Oxygen Saturation 98% 06/24/2024 9:34 AM DIRECTOR MICROBIOLOGY Inhaled Oxygen Concentration - - Weight 55.9 kg (123 lb 4.8 oz) 06/24/2024 9:34 A M DIRECTOR MICROBIOLOGY Height 160 cm (5' 3 ) 03/25/2024 1:30 PM CDT Body Mass Index 21.84 03/25/2024 1:30 PM CDT Plan of Treatment Upcoming Encounters Date Type Department Care Team (Late st Contact Info) Description 2024 11:00 AM DIRECTOR MICROBIOLOGY Appointment [facility] [address] [place] [address] 07/21/2024 9:45 AM DIRECTOR MICROBIOLOGY Appointment [facility] Manager [address] [place] [address] Kiel Vasquez MD [address] [facility] [address] [place] [address] 07/21/2024 9:53 AM DIRECTOR MICROBIOLOGY Hospital Encounter [facility] Manager [address] [place] [address] Kiel Vasquez MD [address] [facility] [address] [place] [address] Paroxysmal A-fib 07/21/2024 9:53 AM DIRECTOR MICROBIOLOGY - 07/21/2024 11:46 AM DIRECTOR MICROBIOLOGY Surgery [facility] Manager [address] [place] [address] Kiel Vasquez MD [address] [facility] [address] [place] [address] Left atrial appendage closure percutaneous 07/28/2024 8:30 AM DIRECTOR MICROBIOLOGY Office Visit [facility] Oncology and Hematology - [place] [address] [place] [address] Nahid Hickman MD [address] [facility] [address] [place] [address] 09/09/2024 1:00 PM CDT Office Visit [facility] At [address] [place] [address] Kiel Vasquez MD [address] [place] [address] [address] [place] [address] 12/16/2024 11:00 AM CDT Office Visit [facility] HE[facility] AND [facility]ASCULAR EP AT [address] [place] [address] Demetrius Bowling DNP [address] [place] [address] [address] [place] [address] 02/05/2025 10:45 AM CDT Telephone Check Up [facility] At [address] [place] [address] 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, [place] [address] [place] [address] Health Maintenance Due Date Last Done Comments DTAP/TDAP/TD VACCINES (1 - Tdap) 1963 OSTEOPOROSIS SCREENING 2009 ZOSTER VACCINE (2 of 3) 07/21/2016 05/26/2016 RSV VACCINE (60+ or ) (1 - 1-dose 75+ series) 2019 INFLUENZA VACCINE (#1) 2024 , 03/17/2018, 04/26/2017 PNEUMOCOCCAL VACCINE 65+ YEARS Completed 10/04/2021 , 04/07/2021 Medical Devices Implanted Type Area Developmental Therapist Device Identifier Shelf Expiration Date Model / Serial / Lot Clip Ligating [facility] [place] Med Ti [id number] - Csc - [id number] Implanted:Qty: 2 on 08/31/2020 by Edinson Ferrell MD at [facility] Clip Right: Chest TELEFLEX- WECK CLOSURE SYS 01/11/2025 [id number] / / [id number] Clip Ligating Horizon Lg Ti [id number] - Csc - [id number] Implanted:Qty: 1 on 08/31/2020 by Edinson Ferrell MD at [facility] Clip Right: Chest TELEFLEX- WECK CLOSURE SYS 12/14/2024590644 / / [id number] Foam Dispenser Clip Surgic[place] Iii Ti Anthony Sm 9in 743334 - [id number] Implanted:Qty: 1 on 10/22/2023 by Edinson Ferrell MD at [facility] Clip N/A: Chest [employer] - COVIDIEN [id number] 03/17/2028 105819 / / [id number] Foam Dispenser Clip [place] Iii Ti Anthony Sm 9in 673611 - [id number] Implanted:Qty: 1 on 10/22/2023 by Edinson Ferrell MD at [facility] Clip N/A: Chest [employer] - COVIDIEN [id number] 04/17/2028 [id number] / / [id number] Clip Ligating Horizon Med Ti 270323 - Csc - [id number] Implanted:Qty: 2 on 10/22/2023 by Edinson Ferrell MD at [facility] Clip N/A: Chest TELEFLEX- WECK CLOSURE SYS [id number] 05/28/2028311218 / / [id number] Clip Ligating Horizon Sm Ti 348145 - Csc - [id number] Implanted:Qty: 1 on 10/22/2023 by Edinson Ferrell MD at [facility] Clip N/A: Chest TELE[employer]LEX INC 04/16/2028664542 / / [id number] Foam Dispenser Clip [place] Iii Ti Anthony Sm 9in 034635 - [id number] Implanted:Qty: 1 on 10/22/2023 by Edinson Ferrell MD at [facility] Clip Left: Leg [employer] - COVID[employer]EN [id number] 04/17/2028 266706 / / [id number] Foam Dispenser Clip [place] Iii Ti Anthony Sm 9in 491731 - [id number] Implanted:Qty: 1 on 10/22/2023 by Edinson Ferrell MD at [facility] Clip N/A: Chest [employer] - COVID[employer]EN [id number] 03/17/2028 534678 / / [id number] Foam Dispenser Clip [place]urg[place] Ii Anthony 9.75in 589954 - [id number] Implanted:Qty: 1 on 10/22/2023 by Edinson Ferrell MD at [facility] Clip N/A: Chest [employer] - COVIDIEN [id number] 03/17/2028 [id number] / / [id number] Marker [employer] Slcn Fm-Pm-1 - [id number] Implanted:Qty: 2 on 10/22/2023 by Edinson Ferrell MD at [facility] Other N/A: [facility] [employer] FM-PM-1 / / Screws Right Ankle Suture Tape Umbilical 30in U11t - Old - [id number] Implanted:Qty: 1 on 08/31/2020 by Edinson Ferrell MD at [facility] Right: Lung [employer] 10/15/2024 [id number] / / [id number] Description:Small piece of u mbilical tape used to reinforce staple line between upper and lower fissure. charged in supply list Explanted Type Area Developmental Therapist Device Identifier Shelf Expiration Date Model / Serial / Lot Hemostatic Surgicel 4x8in 1952 - [id number] Explanted:Qty : 1 on 08/31/2020 by Edinson Ferrell MD at [facility] Hemostatic Right: Lung [employer] [id number] 07/18/20241951 / / [id number] Description:One-third left i n chest, the rest removed by surgeon Procedures Procedure Name Priority Date/Time Associated Diagnosis Comments COMPREHENSIVE METABOLIC PANEL Routine 06/24/2024 11:24 AM DIRECTOR MICROBIOLOGY BASIC METABOLIC PANEL Routine 06/24/2024 11:14 AM DIRECTOR MICROBIOLOGY CBC WITH AUTODIFFERENTIAL Routine 06/24/2024 11:09 AM DIRECTOR MICROBIOLOGY CBC WITH DIFFERENTIAL Routine 06/24/2024 10:[address] HEART CARD STRUC W 3D W CONT Routine 05/28/2024 10:15 AM DIRECTOR MICROBIOLOGY Paroxysmal atrial fibrillation POC CREATININE Routine 05/28/2024 10:09 AM DIRECTOR MICROBIOLOGY COMPREHENSIVE METABOLIC PANEL Routine 05/26/2024 3:01 PM DIRECTOR MICROBIOLOGY BASIC METABOLIC PANEL Routine 05/26/2024 1:17 PM DIRECTOR MICROBIOLOGY CBC WITH DIFFERENTIAL Routine 05/26/2024 1:16 PM DIRECTOR MICROBIOLOGY BASIC METABOLIC PANEL Routine 05/19/2024 1:41 PM DIRECTOR MICROBIOLOGY COMPREHENSIVE METABOLIC PANEL Routine 05/19/2024 1:[address] CHEST W CONTRAST Routine 05/06/2024 1 2:04 PM DIRECTOR MICROBIOLOGY COMPREHENSIVE METABOLIC PANEL Routine 04/21/2024 9:07 AM DIRECTOR MICROBIOLOGY BASIC METABOLIC PANEL Routine 04/21/2024 8:23 AM DIRECTOR MICROBIOLOGY CBC WITH DIFFERENTIAL Routine 04/21/2024 8:22 AM DIRECTOR MICROBIOLOGY BASIC METABOLIC PANEL Routine 04/07/2024 11:53 AM CDT CBC WITH DIFFERENTIAL Routine 04/07/2024 11:36 AM CDT from Last 3 Months Results * COMPREHENSIVE METABOLIC PANEL (06/24/2024 11:24 AM DIRECTOR MICROBIOLOGY) Only the most recent of4 resultswithin the time period is included. Blood Nahid Hickman MD CHEMISTRY ORDERABLES * BASIC METABOLIC PANEL (06/24/2024 11:14 AM DIRECTOR MICROBIOLOGY) Only the most recent of5 resultswithin the time period is included. Blood Nahid Hickman MD CHEMISTRY ORDERABLES * CBC WITH AUTODIFFERENTIAL (06/24/2024 11:09 AM DIRECTOR MICROBIOLOGY) Blood Nahid Hickman MD HEMATOLOGY ORDERABLE S * CBC WITH DIFFERENTIAL (06/24/2024 10:50 AM DIRECTOR MICROBIOLOGY) Only the most recent of4 resultswithin the time period is included. Blood Nahid Hickman MD HEMATOLOGY ORDERABLE S * CT HEART CARD STRUC W 3D W CONT (05/28/2024 10:15 AM DIRECTOR MICROBIOLOGY) Anatomical Region Laterality Modality Chest Computed Tomogra phy 05/28/2024 10:1 2 AM DIRECTOR MICROBIOLOGY Impressions 05/28/2024 1:09 PM DIRECTOR MICROBIOLOGY IMPRESSION: 5 pulmonary veins . Thank you for this referral. The examination was performed with the adjustment of mA according to the patient size and/or the use of Iterative Reconstruction Technique. ?? Dictated by Dr. Berny Green MD DICTATION LOCATION: 1 Narrative 05/28/2024 1:[address] HEART CARDIAC STRUCTURES W 3D W [...] % of the R-R interval. Limited full owhyi-qn-okzq contrast CT of the chest performed for [...] % of the R-R interval. Limited full lojsa-ii-gsuj contrast CT of the chest performed for [...] Green MD DICTATION LOCATION: 1 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 [facility] CT ORDERABLES * POC CREATININE (05/28/2024 10:09 AM DIRECTOR MICROBIOLOGY) CREATININE POC 1.00 0.50 - 1.00 mg/dL 05/28/2024 10:09 AM DIRECTOR MICROBIOLOGY [facility] Comment:The GFR result is no t clinically significant on patients <18 or >70 years of age. GFR POC 57 mL/min/1.7 3 sq meter 05/28/2024 10:09 AM DIRECTOR MICROBIOLOGY [facility] Comment:eGFR calculated with 2020 CKD-EPI equation. Vegetarian diet, extremely high or low muscle mass, and may affect results. Cystatin C with Glomerular Filtration Rate is a suitable alternative for these patients. Blood, whole 05/28/2024 10:0 9 AM DIRECTOR MICROBIOLOGY 05/28/2024 10:13 AM DIRECTOR MICROBIOLOGY 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 [facility] POINT OF CARE TESTIN G [facility]# [id number] [address] [place] [address] * CT CHEST W CONTRAST (05/06/2024 12:04 PM DIRECTOR MICROBIOLOGY) Anatomical Region Laterality Modality Chest Other Nahid Hickman MD CT ORDERABLES from Last 3 Months Advance Directives For more information, please contact: [phone] * Full Code (Latest Code Status on File) Date Activated Date Inactivated Comments 10/22/2023 6:00 PM 10/30/2023 7:35 PM * Full Code Date Activated Date Inactivated Comments 10/21/2023 10:22 AM 10/22/2023 6:00 PM * Full Code Date Activated Date Inactivated Comments 10/19/2023 9:53 AM 10/21/2023 10:22 AM * Full Code Date Activated Date Inactivated Comments 08/16/2021 5:48 AM 08/16/2021 7:47 PM * Default Full Code - Needs Discussion Date Activated Date Inactivated Comments 07/01/2021 3:55 AM 07/01/2021 8:12 PM Care Teams Glass Beveler Relationship Specialty Start Date End Date Aliza Bain MD [address] [place] [address] PCP - General Family Practice 11/22/21
--- OUTSIDE RECORDS SUMMARY | 2024-07-01 00:38 | XMS_ITS | Encounter Summary ---
Author Organization [facility] Address [address] [place] [address] Care Team Providers Care State Farm Agent Name Role Phone Aliza Bain MD Primary Care Provider Reason for Referral * CT Scan (Routine) - Closed Specialty Diagnoses / Procedures Referred By Contac t Referred To Contact Diagnoses Malignant neoplasm of right upper lobe of lung Procedures CT CHEST W CONTRAST Nahid Hickman MD [address] [employer] [address] [place] [phone] [place] [address] Referral ID Status Reason Start Date Expiration Date V isits Requested Visits Authorized [id number] Closed [facility] CTS 04/09/2024 05/10/2025 1 1 Reason for Visit * Reason Comments Follow Up Encounter Details Date Type Department Care Team (Late st Contact Info) Description 04/09/2024 3:30 PM CDT Office Visit [facility] Oncology and Hematology [place] [address] [facility] [address] [place] [address] Nahid Hickman MD [address] [employer] [employer] [address] [place] [address] Chronic anemia (Primary Dx); Malignant neoplasm of right upper lobe of lung Social History Tobacco Use Types Packs/Day Years [...] and Family Not on file 07/29/2020 Attends Voodoo Services Not on file 07/29 Do you belong to any clubs o r organizations such as judaism groups, unions, fraternal or athletic groups, or [...] Sign Reading Time Taken Comments Blood Pressure 140/55 04/09/2024 3:25 PM CDT Pulse 55 04/09/2024 3:25 PM CDT Temperature 36.4 ??C (97.5 ??F) 04/09/2024 3:25 PM CD T Respiratory Rate 14 04/09/2024 3:25 PM CDT Oxygen Saturation 97% 04/09/2024 3:25 PM CDT Inhaled Oxygen Concentration - - Weight 54 kg (119 lb) 04/09/2024 3:25 PM CDT Height - - Body Mass Index 21.08 03/25/2024 1:30 PM CDT documented in this encounter Progress Notes * Nahid Hickman MD - 04/09/2024 5:30 PM CDT HEMATOLOGY / ONCOLOGY PROGRESS NOTE Patient Identification: Name: Cassandra Martinez Age: 78 y.o. Sex: female : 1945 DIAGNOSIS Myelodysplastic syndrome status post bone marrow aspiration and biopsy done on February 20, 2024. 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 SUBJECTIVE Patient came to the office for follow-up visit. She is complaining of tiredness and fatigue. She had capsule enteroscopy done on April 08. Denies any bleeding including melena hematochezia. No other new complaints. Review of system Constitutional: denies fevers, sweats., complain of tiredness and fatigue HEENT: denies sinus congestion, [...] creatinine 0.9 calcium 9.3 M spike 0.8 [place] lightchain 26.2 lambda light chain 97 Labs [...] 1000 iron 128 saturation 33 ferritin 133 Labs from April 07 showed hemoglobin 8.88 MCV 100.8 WBC 9.0 platelet 255,000 creatinine 1.0 B12 more than 1000 iron 71 saturation 20 ferritin 91 Assessment: Plan: Patient Active Problem List Diagnosis Date Noted Coronary artery disease 10/19/2023 Mixed hyperlipidemia 01/23/2023 Chronic diastolic dysfunction 12/15/2021 Exertional shortness of breath MGUS (monoclonal gammopathy of unknown significance) 03/15/2021 Benign hypertension 10/01/2020 Carotid artery disease 10/01/2020 Atrial fibrillation Non-small cell cancer of right lung 08/13/2020 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 Tempus myeloid panel showed no actionable mutation. Labs done again showed normal iron and vitamin B12 level and normal kidney function. I decided to start her on treatment with Vidaza 5-day course. I have discussed side effects in detail. I plan to see her back in 5 weeks. 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 Negative ALK gene rearrangement. We will order CT scan of the chest in about 6 weeks. MGUS. Myeloma testing will be done in 6 months. A-fib. Status post ablation. She is asymptomatic. Coronary artery disease status post coronary artery bypass grafting in October 2023. She will follow-upwith the cardiology. 04/09/2024 Nahid Hickman MD documented in this encounter Plan of Treatment Upcoming Encounters Date Type Department Care Team (Late st Contact Info) Description 2024 11:00 AM ADMISSIONS CONSULTANT Appointment [facility] [address] [place] [address] 07/21/2024 9:45 AM ADMISSIONS CONSULTANT Appointment [facility] Boiler Control Room Operator [address] [place] [address] Kiel Vasquez MD [address] [place] [address] 07/21/2024 9:53 AM ADMISSIONS CONSULTANT Hospital Encounter [facility] Boiler Control Room Operator [address] [place] [address] Kiel Vasquez MD [address] 2014 [place] [address] Paroxysmal A-fib 07/21/2024 9:53 AM ADMISSIONS CONSULTANT - 07/21/2024 11:46 AM ADMISSIONS CONSULTANT Surgery [facility] Boiler Control Room Operator [address] [place] [address] Kiel Vasquez MD [address] 2014 [place] [address] Left atrial appendage closure percutaneous 07/28/2024 8:30 AM ADMISSIONS CONSULTANT Office Visit [facility] Oncology and Hematology - [place] [address] [place] [address] Nahid Hickman MD 2[address] [facility] [address] [place] [address] 09/09/2024 1:00 PM CDT Office Visit [facility] Heart and Vascular At [address] [place] [address] Kiel Vasquez MD [address] [place] [address] 2014 [place] [address] 12/16/2024 11:00 AM CDT Office Visit [facility] AT [address] [place] [address] Demetrius Bowling DNP [address] [place] [address] 2014 [place] [address] 02/05/2025 10:45 AM CDT Telephone Check Up [facility] Heart and Vascular At [address] [place] [address] 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 FNP [address] [place] [phone] Scheduled Orders Name Type Priority Associated Diagnoses Orde r Schedule CT CHEST W CONTRAST Imaging Routine Malignant neoplasm of right upper lobe of lung Expected: 05/14/2024, Expires: 04/09/2025 documented as of this encounter Visit Diagnoses Diagnosis Chronic anemia- Primary Anemia, unspecified Malignant neoplasm of right upper lobe of lung Malignant neoplasm of upper lobe, bronchus or lung Paroxysmal atrial fibrillation- Primary Atrial fibrillation Paroxysmal A-fib Atrial fibrillation Paroxysmal A-fib Atrial fibrillation documented in this encounter Care Teams State Farm Agent Relationship Specialty Start Date End Date Aliza Bain MD [address] [place] [phone] PCP - General Family Practice 11/22/21 documented as of this encounter
--- OUTSIDE RECORDS SUMMARY | 2024-07-01 00:38 | XMS_ITS | Encounter Summary ---
Author Organization [facility] Address [address] [place] [address] Care Team Providers Care Jeeper Operator Name Role Phone Aliza Bain MD Primary Care Provider Reason for Visit * Reason Onset Date Comments Medication Refill 04/18/2024 Encounter Details Date Type Department Care Team (Late st Contact Info) Description 04/18/2024 Refill [facility] Oncology and Hematology - [place] [address] [place] [address] Yasmin Lam MD [address] [place] [address] Social History Tobacco Use Types [...] and Family Not on file 07/29/2020 Attends Catholic Services Not on file 07/29 Do you belong to any clubs o r organizations such as catholic groups, unions, fraternal or athletic groups, [...] st Contact Info) Description 2024 11:00 AM ARCHITECTURAL INSPECTOR Appointment [facility] [address] [place] [address] 07/21/2024 9:45 AM ARCHITECTURAL INSPECTOR Appointment [facility] [employer] [address] [place] [address] Kiel Vasquez MD [address] [facility] 2014 [place] [address] 07/21/2024 9:53 AM ARCHITECTURAL INSPECTOR Hospital Encounter [facility] [employer] [address] [place] [address] Kiel Vasquez MD [facility] 2014 [place] [address] Paroxysmal A-fib 07/21/2024 9:53 AM ARCHITECTURAL INSPECTOR - 07/21/2024 11:46 AM ARCHITECTURAL INSPECTOR Surgery [facility] [employer] [address] [place] [address] Kiel Vasquez MD [facility] 2014 [place] [address] Left atrial appendage closure percutaneous 07/28/2024 8:30 AM ARCHITECTURAL INSPECTOR Office Visit [facility] Oncology and Hematology - [place] [address] [phone] Nahid Hickman MD [address] [facility] [address] [place] [address] 09/09/2024 1:00 PM CDT Office Visit [facility] Heart and Vascular At [address] [place] [address] Kiel Vasquez MD [facility] 2014 [place] [address] 12/16/2024 11:00 AM CDT Office Visit [facility] HEART AND VASCULAR EP AT [address] [place] [address] Demetrius Bowling DNP [address] [place] [address] 2014 [place] [address] 02/05/2025 10:45 AM CDT Telephone Check Up [facility] Heart and Vascular At [address] [place] [address] 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, GRAPPLE YARDER OPERATOR [address] [place] [address] documented as of this encounter Visit Diagnoses Not on filedocumented in this encounter Care Teams Jeeper Operator Relationship Specialty Start Date End Date Aliza Bain MD [address] [place] [address] PCP - General Family Practice 11/22/21 documented as of this encounter
--- OUTSIDE RECORDS SUMMARY | 2024-07-01 00:38 | XMS_ITS | Encounter Summary ---
Author Organization [facility] [employer] [facility] Address [address] [place] [address] Care Team Providers Care Tin Container Straightener Name Role Phone Aliza Bain MD Primary Care Provider Encounter Details Date Type Department Care Team (Late st Contact Info) Description 05/12/[address] [facility] Oncology and Hematology - [place] [address] [facility] [address] [place] [address] Nahid Hickman MD [address] [place] [address] Chronic anemia Social History Tobacco [...] and Family Not on file 07/29/2020 Attends Rastafari Services Not on file 07/29 Do you [...] st Contact Info) Description 2024 11:00 AM ELECTRONIC GLUING MACHINE OPERATOR Appointment [facility] [address] [place] [address] 07/21/2024 9:45 AM ELECTRONIC GLUING MACHINE OPERATOR Appointment [facility] [address] [place] [address] Kiel Vasquez MD [address] [facility] 2014 [place] [address] 07/21/2024 9:53 AM ELECTRONIC GLUING MACHINE OPERATOR Hospital Encounter [facility] [address] [place] [address] Kiel Vasquez MD [address] [facility] 2014 [place] [address] Paroxysmal A-fib 07/21/2024 9:53 AM ELECTRONIC GLUING MACHINE OPERATOR - 07/21/2024 11:46 AM ELECTRONIC GLUING MACHINE OPERATOR Surgery [facility] [place] [address] Kiel Vasquez MD [facility] S [facility] 2014 [place] [address] Left atrial appendage closure percutaneous 07/28/2024 8:30 AM ELECTRONIC GLUING MACHINE OPERATOR Office Visit [facility] Oncology and Hematology - [place] [address] [facility] [address] [place] [address] Nahid Hickman MD [address] [facility] [address] [place] [address] 09/09/2024 1:00 PM CDT Office Visit [facility] Heart and Vascular At [address] [place] [address] Kiel Vasquez MD [facility] S [facility] 2014 [place] [address] 12/16/2024 11:00 AM CDT Office Visit [facility] HEART AND VASCULAR EP AT [address] [place] [address] Demetrius Bowling DNP [address] [place] [address] 2014 [place] [address] 02/05/2025 10:45 AM CDT Telephone Check Up [facility] Heart and Vascular At [address] [place] [address] 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 FNP [facility] [place] [address] documented as of this encounter Visit Diagnoses Diagnosis Chronic anemia Anemia, unspecified Paroxysmal atrial fibrillation- Primary Atrial fibrillation Paroxysmal A-fib Atrial fibrillation Paroxysmal A-fib Atrial fibrillation documented in this encounter Care Teams Tin Container Straightener Relationship Specialty Start Date End Date Aliza Bain MD [address] [place] [address] PCP - General Family Practice 11/22/21 documented as of this encounter
--- OUTSIDE RECORDS SUMMARY | 2024-07-01 00:38 | XMS_ITS | Encounter Summary ---
Author Organization [facility] [employer] [facility] Address [address] [place] [address] Care Team Providers Care Printer Helper Name Role Phone Aliza Bain MD Primary Care Provider Encounter Details Date Type Department Care Team (Late st Contact Info) Description 05/26/2024 Orders Only [facility] Oncology and Hematology - [place] [address] [facility] 200 [place] [address] Nahid Hickman MD [address] [employer] [address] [place] [address] Chronic anemia Social History Tobacco [...] and Family Not on file 07/29/2020 Attends Rastafarian Services Not on file 07/29 Do you belong to any clubs o r organizations such as jehovah's witness groups, unions, fraternal or athletic groups, or [...] st Contact Info) Description 2024 11:00 AM ROBOTIC TOY INVENTOR Appointment [facility] [address] [place] [address] 07/21/2024 9:45 AM ROBOTIC TOY INVENTOR Appointment [facility] Supervisor [employer] [address] [place] [address] Kiel Vasquez MD [address] [facility] 2014 [place] [address] 07/21/2024 9:53 AM ROBOTIC TOY INVENTOR Hospital Encounter [facility] Supervisor [employer] [address] [place] [address] Kiel Vasquez MD [address] [facility] 2014 [place] [address] Paroxysmal A-fib 07/21/2024 9:53 AM ROBOTIC TOY INVENTOR - 07/21/2024 11:46 AM ROBOTIC TOY INVENTOR Surgery [facility] Supervisor [employer] Vehicle [facility] [place] [address] Kiel Vasquez MD [facility] S [facility] 2014 [place] [address] Left atrial appendage closure percutaneous 07/28/2024 8:30 AM ROBOTIC TOY INVENTOR Office Visit [facility] Oncology and Hematology - [place] 2227 [facility] [address] [place] [address] Nahid Hickman MD 2[address] [facility] [address] [place] [address] 09/09/2024 1:00 PM CDT Office Visit [facility] Heart and Vascular At [address] [place] [address] Kiel Vasquez MD [facility] S [facility] 2014 [place] [address] 12/16/2024 11:00 AM CDT Office Visit [facility] HEART AND VASCULAR EP AT [address] [place] [address] Demetrius Bowling DNP [address] [place] [address] 2014 [place] [address] 02/05/2025 10:45 AM CDT Telephone Check Up [facility] Heart and Vascular At [address] [place] [address] 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 FNP [facility] [place] [address] documented as of this encounter Visit Diagnoses Diagnosis Chronic anemia Anemia, unspecified Paroxysmal atrial fibrillation- Primary Atrial fibrillation Paroxysmal A-fib Atrial fibrillation Paroxysmal A-fib Atrial fibrillation documented in this encounter Care Teams Printer Helper Relationship Specialty Start Date End Date Aliza Bain MD [address] [place] [address] PCP - General Family Practice 11/22/21 documented as of this encounter
--- OUTSIDE RECORDS SUMMARY | 2024-07-01 00:38 | XMS_ITS | Encounter Summary ---
Author Organization [facility] [employer] [facility] Address [address] [place] [address] Care Team Providers Care Driver Messenger Name Role Phone Aliza Bain MD Primary Care Provider Reason for Visit * Reason Comments Chemotherapy Follow Up Encounter Details Date Type Department Care Team (Late st Contact Info) Description 05/20/2024 9:00 AM COUNSELOR NURSES[employer]OCIATION Office Visit [facility] Oncology and Hematology - [place] [address] [facility] 200 [place] [address] Nahid Hickman MD [address] [facility] [address] [place] [address] Chronic anemia (Primary Dx) Social [...] and Family Not on file 07/29/2020 Attends Yazidism Services Not on file 07/29 Do you belong to any clubs o r organizations such as muslim groups, unions, fraternal or athletic groups, or [...] Sign Reading Time Taken Comments Blood Pressure 130/58 05/20/2024 9:11 AM COUN[employer] Pulse 55 05/20/2024 9:09 AM [employer] Temperature 36.5 ??C (97.7 ??F) 05/20/2024 9:09 AM CS T Respiratory Rate 15 05/20/2024 9:09 AM COUN[employer] Oxygen Saturation 98% 05/20/2024 9:09 AM COUN[employer] Inhaled Oxygen Concentration - - Weight 54.3 kg (119 lb 12.8 oz) 05/20/2024 9:09 AM [employer] Height - - Body Mass Index 21.22 03/25/2024 1:30 PM CDT documented in this encounter Progress Notes * Nahid Hickman MD - 05/20/2024 10:09 AM CST HEMATOLOGY / ONCOLOGY PROGRESS NOTE Patient Identification: [...] Monoclonal gammopathy of unknown significance CURRENT TREATMENT Vidaza cycle 1 day 1 started April 21, 2024. Iron twice a day TREATMENT HISTORY Right [...] to the office for follow-up visit. She tolerated chemotherapy well. Denies any chest pain and shortness of breath. No bleeding and bruising. Weight and appetite stable. No other new complaints. Review of system Constitutional: denies fevers, sweats. Denies any tiredness and fatigue HEENT: denies sinus congestion, [...] creatinine 0.9 calcium 9.3 M spike 0.8 [place] lightchain 26.2 lambda light chain 97 Labs [...] vitamin B12 level and normal kidney function. Patient started chemotherapy with Vidaza on April 21, 2024. She tolerated treatment well. I will hold chemotherapy for 1 week due to recent dental extraction. Follow-up in 5 weeks. Stage II lung cancer status post right upper lobe lobectomy done in August 2020. CT scan done on May 06, 2025 showed no evidence of relapse of disease. Repeat CT scan will be done in 6 months. She is asymptomatic. MGUS. Patient is asymptomatic. Myeloma testing will be done in 6 months. 05/20/2024 Nahid Hickman MD [employer] documented in this encounter Plan of Treatment Upcoming Encounters Date Type Department Care Team (Late st Contact Info) Description 2024 11:00 AM COUNSELOR NURSES[employer]OCIATION Appointment [facility] [address] [place] [address] 07/21/2024 9:45 AM COUNSELOR NURSES[employer]OCIATION Appointment [facility] [employer] [address] [place] [address] Kiel Vasquez MD [address] [facility] 2014 [place] [address] 07/21/2024 9:53 AM COUNSELOR [employer]URSES[employer]OC[employer] Hospital Encounter [facility] [employer] [address] [place] [address] Kiel Vasquez MD [facility] S [facility] 2014 [place] [address] Paroxysmal A-fib 07/21/2024 9:53 AM COUN[employer] NURSES[employer]OCIATION - 07/21/2024 11:46 AM COUN[employer]OR [employer]URSES[employer]IATION Surgery [facility] [employer] [facility] [place] [address] Kiel Vasquez MD [address] [place] [address] 2014 [place] [address] Left atrial appendage closure percutaneous 07/28/2024 8:30 AM COUNSELOR NURSES[employer]OCIATION Office Visit [facility] Oncology and Hematology - [place] [address] [address] Nahid Hickman MD [address] [facility] [address] [place] [address] 09/09/2024 1:00 PM CDT Office Visit [facility] Heart and Vascular At [address] [place] [address] Kiel Vasquez MD [address] [place] [address] 2014 [place] [address] 12/16/2024 11:00 AM CDT Office Visit [facility] HEART AND VASCULAR EP AT [address] [place] [address] Demetrius Bowling DNP [address] [place] [address] 2014 [place] [address] 02/05/2025 10:45 AM CDT Telephone Check Up [facility] Heart and Vascular At [facility] [address] [facility] [address] [place] [address] 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 FNP [address] [place] [address] Scheduled Orders Name Type Priority Associated Diagnoses Orde r Schedule CBC WITH DIFFERENTIAL Lab Stat Chronic anemia Expected: 06/17/2024, Expires: 05/20/2025 BASIC METABOLIC PANEL Lab Stat Chronic anemia Expected: 06/17/2024, Expires: 05/20/2025 documented as of this encounter Visit Diagnoses Diagnosis Chronic anemia- Primary Anemia, unspecified Paroxysmal atrial fibrillation- Primary Atrial fibrillation Paroxysmal A-fib Atrial fibrillation Paroxysmal A-fib Atrial fibrillation documented in this encounter Care Teams Driver Messenger Relationship Specialty Start Date End Date Aliza Bain MD [address] [place] [address] PCP - General Family Practice 11/22/21 documented as of this encounter
--- OUTSIDE RECORDS SUMMARY | 2024-07-01 00:38 | XMS_ITS | Encounter Summary ---
Author Organization [facility] [employer] [facility] Address [address] [place] [address] Care Team Providers Care Commodity Analyst Name Role Phone Aliza Bain MD Primary Care Provider Encounter Details Date Type Department Care Team (Late st Contact Info) Description 05/21/2024 Abstract [facility] Oncology and Hematology - [place] [address] [facility] 200 [place] [address] Nahid Hickman MD 2227 [employer] [address] [place] [address] Social History Tobacco Use Types [...] and Family Not on file 07/29/2020 Attends Buddhist Services Not on file 07/29 Do you belong to any clubs o r organizations such as cheondoism groups, unions, fraternal or athletic groups, or [...] st Contact Info) Description 2024 11:00 AM CADMIUM PLATER Appointment [facility] [address] [place] [phone] 07/21/2024 9:45 AM CADMIUM PLATER Appointment [facility] Enterprise Application Developer [address] [place] [address] Kiel Vasquez MD 625 [address] [facility] Carlotta [facility] 2014 [place] [address] 07/21/2024 9:53 AM CADMIUM PLATER Hospital Encounter [facility] Enterprise Application Developer [address] [place] [address] Kiel Vasquez MD [address] [place] [address] 2014 [place] [address] Paroxysmal A-fib 07/21/2024 9:53 AM CADMIUM PLATER - 07/21/2024 11:46 AM CADMIUM PLATER Surgery [facility] Enterprise Application Developer [address] [place] [phone] Keil Vasquez MD [address] [place] [address] 2014 [place] [address] Left atrial appendage closure percutaneous 07/28/2024 8:30 AM CADMIUM PLATER Office Visit [facility] Oncology and Hematology - [place] 2227 [facility] 200 [place] [address] Naihd Hickman MD 2227 [facility] [address] [place] [address] 09/09/2024 1:00 PM CDT Office Visit [facility] Heart and Vascular At [address] 2014 [place] [address] Kiel Vasquez MD [address] [place] [address] 2014 [place] [address] 12/16/2024 11:00 AM CDT Office Visit [facility] HEART AND VASCULAR EP AT [address] 2014 [place] [address] Demetrius Bowling DNP [address] [place] [address] 2014 [place] [address] 02/05/2025 10:45 AM CDT Telephone Check Up [facility] Heart and Vascular At [address] 2014 [place] [address] 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 FNP [address] [place] [address] [place] [address] documented as of this encounter Visit Diagnoses Not on filedocumented in this encounter Care Teams Commodity Analyst Relationship Specialty Start Date End Date Aliza Bain MD [address] [place] [address] PCP - General Family Practice 11/22/21 documented as of this encounter
--- OUTSIDE RECORDS SUMMARY | 2024-07-01 00:38 | XMS_ITS | Encounter Summary ---
Author Organization [facility]3] [employer] [facility] Address [address] [place] [address] Care Team Providers Care Commuter Pilot Name Role Phone Aliza Bain MD Primary Care Provider Encounter Details Date Type Department Care Team (Late st Contact Info) Description 06/23/2024 Orders Only [facility] Oncology and Hematology - [place] 2227 [facility] 200 [place] [address] Nahid Hickman MD [address] [employer] [address] [place] [address] Chronic anemia Social History Tobacco [...] and Family Not on file 07/29/2020 Attends Anglican Services Not on file 07/29 Do you belong to any clubs o r organizations such as anabaptism groups, unions, fraternal or athletic groups, or [...] Contact Info) Description 2024 11:00 AM LUNCH TRUCK OPERATOR Appointment [facility] [address] [place] [address] 07/21/2024 9:45 AM LUNCH TRUCK OPERATOR Appointment [facility] Paralegal Secretary [address] [place] [address] Kiel Vasquez MD 625 [facility] 2014 [place] [address] 07/21/2024 9:53 AM LUNCH TRUCK OPERATOR Hospital Encounter [facility] Paralegal Secretary [address] [place] [address] Kiel Vasquez MD 625 [address] [facility] 2014 [place] [address] Paroxysmal A-fib 07/21/2024 9:53 AM LUNCH TRUCK OPERATOR - 07/21/2024 11:46 AM LUNCH TRUCK OPERATOR Surgery [facility] Paralegal Secretary [place] [address] Keil Vasquez MD [facility] S [facility] 2014 [place] [address] Left atrial appendage closure percutaneous 07/28/2024 8:30 AM LUNCH TRUCK OPERATOR Office Visit [facility] Oncology and Hematology - [place] 2227 [facility] 200 [place] [address] Nahid Hickman MD 2227 [facility] [address] [place] [address] 09/09/2024 1:00 PM CDT Office Visit [facility] Heart and Vascular At [address] 2014 [place] [address] Kiel Vasquez MD [facility] S [facility] 2014 [place] [address] 12/16/2024 11:00 AM CDT Office Visit [facility]3] HEART AND VASCULAR EP AT [address] 2014 [place] [address] Demetrius Bowling DNP [address] [place] [address] 2014 [place] [address] 02/05/2025 10:45 AM CDT Telephone Check Up [facility] Heart and Vascular At [address] 2014 [place] [address] 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 FNP [place] [address] documented as of this encounter Visit Diagnoses Diagnosis Paroxysmal atrial fibrillation- Primary Atrial fibrillation Paroxysmal A-fib Atrial fibrillation Chronic anemia Anemia, unspecified Paroxysmal A-fib Atrial fibrillation documented in this encounter Care Teams Commuter Pilot Relationship Specialty Start Date End Date Aliza Bain MD [address] [place] [address] PCP - General Family Practice 11/22/21 documented as of this encounter
--- OUTSIDE RECORDS SUMMARY | 2024-07-01 00:38 | XMS_ITS | Encounter Summary ---
Author Organization [facility] [employer] [facility] Address [address] [place] [address] Care Team Providers Care It Infrastructure Engineer Name Role Phone Aliza Bain MD Primary Care Provider Encounter Details Date Type Department Care Team (Late st Contact Info) Description 04/23/[address] [facility] Oncology and Hematology - [place] [address] [facility] 200 [place] [address] Nahid Hickman MD 2227 [email or web address] [address] [place] [address] Social History Tobacco Use Types [...] st Contact Info) Description 2024 11:00 AM BAKER BISCUIT Appointment [facility] [address] [place] [address] 07/21/2024 9:45 AM BAKER BISCUIT Appointment [facility] Racecourse Barrier Attendant [address] [place] [address] Kiel Vasquez MD 625 S [facility] Carlotta [facility] 2014 [place] [address] 07/21/2024 9:53 AM BAKER BISCUIT Hospital Encounter [facility] Racecourse Barrier Attendant [address] [place] [address] Kiel Vasquez MD [address] [place] [address] 2014 [place] [address] Paroxysmal A-fib 07/21/2024 9:53 AM BAKER BISCUIT - 07/21/2024 11:46 AM BAKER BISCUIT Surgery [facility] Racecourse Barrier Attendant [address] [place] [address] Kiel Vasquez MD [address] [place] [address] 2014 [place] [address] Left atrial appendage closure percutaneous 07/28/2024 8:30 AM BAKER BISCUIT Office Visit [facility] Oncology and Hematology - [place] 2227 [facility] 200 [place] [address] Nahid Hickman MD 2227 [facility] [address] [place] [address] 09/09/2024 1:00 PM CDT Office Visit [facility] Heart and Vascular At [address] 2014 [place] [address] Kiel Vasquez MD [address] [place] [address] 2014 [place] [address] 12/16/2024 11:00 AM CDT Office Visit [facility] HEART AND VASCULAR EP AT [address] [place] [address] Demetrius Bowling DNP [address] [place] [address] 2014 [place] [address] 02/05/2025 10:45 AM CDT Telephone Check Up [facility] Heart and Vascular At [address] [place] [address] 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 FNP [address] [place] [address] [place] [address] documented as of this encounter Visit Diagnoses Not on filedocumented in this encounter Care Teams It Infrastructure Engineer Relationship Specialty Start Date End Date Aliza Bain MD [address] [place] [address] PCP - General Family Practice 11/22/21 documented as of this encounter
--- OUTSIDE RECORDS SUMMARY | 2024-07-01 00:38 | XMS_ITS | Encounter Summary ---
Author Organization [facility] [employer] [facility] Address [address] [place] [address] Care Team Providers Care Pupil Personnel Worker Name Role Phone Aliza Bain MD Primary Care Provider Encounter Details Date Type Department Care Team (Late st Contact Info) Description 03/14/2024 Orders Only [facility] Oncology and Hematology - [place] [address] Amand[address] [facility] 200 [place] [address] Nahid Hickman MD [address]227 [employer] [address] [place] [address] Social History Tobacco Use Types [...] st Contact Info) Description 2024 11:00 AM PLASTER FOREMAN Appointment [facility] [address] [place] [address] 07/21/2024 9:45 AM PLASTER FOREMAN Appointment [facility] Telecommunications Line Mechanic [address] [place] [address] Kiel Vasquez MD 625 [address] [facility] 2014 [place] [address] 07/21/2024 9:53 AM PLASTER FOREMAN Hospital Encounter [facility] Telecommunications Line Mechanic [address] [place] [address] Kiel Vasquez MD [facility] S [facility] 2014 [place] [address] Paroxysmal A-fib 07/21/2024 9:53 AM PLASTER FOREMAN - 07/21/2024 11:46 AM PLASTER FOREMAN Surgery [facility] Telecommunications Line Mechanic [address] [place] [phone] Kiel Vasquez MD [address] [place] [address] 2014 [place] [address] Left atrial appendage closure percutaneous 07/28/2024 8:30 AM PLASTER FOREMAN Office Visit [facility] Oncology and Hematology - [place] [address] [facility] 200 [place] [address] Nahid Hickman MD 2227 [facility] [address] [place] [address] 09/09/2024 1:00 PM CDT Office Visit [facility] Heart and Vascular At [address] [place] [address] Kiel Vasquez MD [address] [place] [address] 2014 [place] [address] 12/16/2024 11:00 AM CDT Office Visit [facility] HEART AND VASCULAR EP AT [address] [place] [address] Demetrius Bowling DNP [address] [place] [address] 2014 [place] [address] 02/05/2025 10:45 AM CDT Telephone Check Up [facility] Heart and Vascular At [address] [place] [address] 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 FNP [address] [place] [address], [place] [address] documented as of this encounter Procedures Procedure Name Priority Date/Time Associated Diagnosis Comments BONE MARROW ASPIRATION & BIOPSY Routine 02/20/2024 12:46 PM CDT documented in this encounter Results * BONE MARROW ASPIRATION AND BIOPSY (02/20/2024 12:46 PM CDT) Bone marrow Nahid Hickman MD PATH/CYTO ORDERABLES COM documented in this encounter Visit Diagnoses Not on filedocumented in this encounter Care Teams Pupil Personnel Worker Relationship Specialty Start Date End Date Aliza Bain MD [address] [place] [address] PCP - General Family Practice 11/22/21 documented as of this encounter
--- OUTSIDE RECORDS SUMMARY | 2024-07-01 00:38 | XMS_ITS | Encounter Summary ---
Author Organization [facility] Address [address] [place] [address] Care Team Providers Care Senior Qa Analyst Name Role Phone Aliza Bain MD Primary Care Provider Reason for Visit * Reason Onset Date Comments Medication Question 04/25/2024 Encounter Details Date Type Department Care Team (Late st Contact Info) Description 04/25/2024 Telephone [facility] Heart and Vascular At [place] [address] [facility] [address] [place] [address] Kiel Vasquez MD [address] [place] [address] 2014 [place] [address] Medication Question Social History Tobacco Use Types Packs/Day Years [...] encounter Miscellaneous Notes * Telephone Encounter - Melanie Swenson RN - 05/01/2024 1:28 PM CST Spoke to pt on the phone, notified her of Dr Vasquez's recommendations. Pt agreeable to Watchman workup. Please call pt to order/schedule CTA. She is going to have a CT chest w contrast later this month and wanted to know if that was the same test. AW OPERATOR * Telephone Encounter - Melanie Swenson RN - 04/30/2024 8:53 AM CST Images from the original note were not included. Kiel Vasquez MD Kiely, Sarah A RN Caller: Unspecified (5 days ago, 3:34 PM) Given recurrent Gi bleeding and transfusion requirement I recommend we consider LAAO with watchman/amulet (we have discussed ins past) If she is open to this I would schedule her a screening CTA If she wants to discuss further in office first that is fine as well LM for pt, office phone number given. AW OPERATOR * Telephone Encounter - Melanie Swenson RN - 04/25/2024 3:55 PM CST Images from the original note were not included. Most recent CBC from 04/21/24: Ok to restart eliquis? AW OPERATOR * Telephone Encounter - Talia George - 04/25/2024 3:19 PM CST Patient stated she was admitted in [facility] due to an heart attack but come to find out her blood count was low so they gave her a blood transfusion. Patient wanted to know if she can restart Eliquis since her test results came back ok. Pleas give patient a call back at [phone]. AW OPERATOR documented in this encounter Plan of Treatment Upcoming Encounters Date Type Department Care Team (Late st Contact Info) Description 2024 11:00 AM RIPSAW OPERATOR Appointment [facility] [address] [place] [address] 07/21/2024 9:45 AM RIPSAW OPERATOR Appointment [facility] Wharf Worker [address] [place] [address] Kiel Vasquez MD [address] [facility] 2014 [place] [address] 07/21/2024 9:53 AM RIPSAW OPERATOR Hospital Encounter [facility] Wharf Worker [address] [place] [address] Kiel Vasquez MD [address] [facility] 2014 [place] [address] Paroxysmal A-fib 07/21/2024 9:53 AM RIPSAW OPERATOR - 07/21/2024 11:46 AM RIPSAW OPERATOR Surgery [facility] Wharf Worker [address] [place] [address] Kiel Vasquez MD [address] [facility] 2014 [place] [address] Left atrial appendage closure percutaneous 07/28/2024 8:30 AM RIPSAW OPERATOR Office Visit [facility] Oncology and Hematology - [place] 2227 [facility] 200 [place] [address] Nahid Hickman MD 2227 [facility] [address] [place] [address] 09/09/2024 1:00 PM CDT Office Visit [facility] Heart and Vascular At [address] [place] [address] Kiel Vasquez MD [facility] S [facility] 2014 [place] [address] 12/16/2024 11:00 AM CDT Office Visit [facility] HEART AND VASCULAR EP AT [address] [place] [address] Demetrius Bowling DNP [address] [place] [address] 2014 [place] [address] 02/05/2025 10:45 AM CDT Telephone Check Up [facility] Heart and Vascular At [address] [place] [address] 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, VOCATIONAL GUIDANCE COUNSELOR [address] [place] [address] documented as of this encounter Visit Diagnoses Not on filedocumented in this encounter Care Teams Senior Qa Analyst Relationship Specialty Start Date End Date Aliza Bain MD [address] [place] [address] PCP - General Family Practice 11/22/21 documented as of this encounter
--- OUTSIDE RECORDS SUMMARY | 2024-07-01 00:38 | XMS_ITS | Encounter Summary ---
Author Organization [facility] [employer] [facility] Address [address] [place] [address] Care Team Providers Care Photovoltaic Installation Technician Name Role Phone Aliza Bain MD Primary Care Provider Encounter Details Date Type Department Care Team (Late st Contact Info) Description 05/20/2024 Orders Only [facility] Oncology and Hematology - [place] [address] Am[address] [facility] 200 [place] [address] Nahid Hickman MD [address] [employer] [address] [place] [address] Social History Tobacco Use Types [...] and Family Not on file 07/29/2020 Attends Yarsani Services Not on file 07/29 Do you [...] st Contact Info) Description 2024 11:00 AM EMBOSSING PRESS OPERATOR APPRENTICE Appointment [facility] [address] [place] [address] 07/21/2024 9:45 AM EMBOSSING PRESS OPERATOR APPRENTICE Appointment [facility] Catalyst Plant Supervisor [address] [facility] [place] [address] Kiel Vasquez MD [address] [facility] 2014 [place] [address] 07/21/2024 9:53 AM EMBOSSING PRESS OPERATOR APPRENTICE Hospital Encounter [facility] Catalyst Plant Supervisor [address] [place] [address] Kiel Vasquez MD [facility] S [facility] 2014 [place] [address] Paroxysmal A-fib 07/21/2024 9:53 AM EMBOSSING PRESS OPERATOR APPRENTICE - 07/21/2024 11:46 AM EMBOSSING PRESS OPERATOR APPRENTICE Surgery [facility] Catalyst Plant Supervisor [address] [place] [phone] Kiel Vasquez MD [address] [place] [address] 2014 [place] [address] Left atrial appendage closure percutaneous 07/28/2024 8:30 AM EMBOSSING PRESS OPERATOR APPRENTICE Office Visit [facility] Oncology and Hematology - [place] 2227 [facility] 200 [place] [address] Nahid Hickman MD 2227 [facility] [address] [place] [address] 09/09/2024 1:00 PM CDT Office Visit [facility] Heart and Vascular At [address] 2014 [place] [address] Kiel Vasquez MD [address] [place] [address] 2014 [place] [address] 12/16/2024 11:00 AM CDT Office Visit [facility] HEART AND VASCULAR EP AT [address] [place] [address] Demetrius Bowling DNP [address] [place] [address] 2014 [place] [address] 02/05/2025 10:45 AM CDT Telephone Check Up [facility] Heart and Vascular At [address] [place] [address] 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 FNP [address] [place] [address], [place] [address] documented as of this encounter Procedures Procedure Name Priority Date/Time Associated Diagnosis Comments BASIC METABOLIC PANEL Routine 05/19/2024 1:41 PM EMBOSSING PRESS OPERATOR APPRENTICE COMPREHENSIVE METABOLIC PANEL Routine 05/19/2024 1:17 PM EMBOSSING PRESS OPERATOR APPRENTICE documented in this encounter Results * BASIC METABOLIC PANEL (05/19/2024 1:41 PM EMBOSSING PRESS OPERATOR APPRENTICE) Blood Nahid Hickman MD CHEMISTRY ORDERABLES * COMPREHENSIVE METABOLIC PANEL (05/19/2024 1:17 PM EMBOSSING PRESS OPERATOR APPRENTICE) Blood Nahid Hickman MD CHEMISTRY ORDERABLES documented in this encounter Visit Diagnoses Not on filedocumented in this encounter Care Teams Photovoltaic Installation Technician Relationship Specialty Start Date End Date Aliza Bain MD [address] [place] [address] PCP - General Family Practice 11/22/21 documented as of this encounter
--- OUTSIDE RECORDS SUMMARY | 2024-07-01 00:38 | XMS_ITS | Encounter Summary ---
Author Organization [facility] [employer] [facility] Address [address] [place] [address] Care Team Providers Care Rides Supervisor Name Role Phone Aliza Bain MD Primary Care Provider Reason for Visit * Reason Onset Date Comments Requesting Sooner Appointment 02/25/2024 Encounter Details Date Type Department Care Team (Late st Contact Info) Description 02/25/2024 Telephone [facility] Oncology and Hematology - [place] 22[address] [facility] 200 [place] [address] Nahid Hickman MD 2227 [facility] [address] [place] [address] Requesting Sooner Appointment Social History Tobacco Use Types Packs/Day Years [...] and Family Not on file 07/29/2020 Attends Mormonism Services Not on file 07/29 Do you belong to any clubs o r organizations such as uatsdin groups, unions, fraternal or athletic groups, or [...] * Telephone Encounter - Fanny Altamirano - 02/25/2024 4:12 PM CDT Tried to call patient back to inform her we do not have any sooner appointments for her to get in. Patient answered then hung up the call. documented in this encounter Plan of Treatment Upcoming Encounters Date Type Department Care Team (Late st Contact Info) Description 2024 11:00 AM HELP DESK COORDINATOR Appointment [facility] [address] [place] [address] 07/21/2024 9:45 AM HELP DESK COORDINATOR Appointment [facility] Bike Assembler [address] [place] [address] iKel Vasquez MD [address] [facility] 2014 [place] [address] 07/21/2024 9:53 AM HELP DESK COORDINATOR Hospital Encounter [facility] Bike Assembler [address] [place] [address] Kiel Vasquez MD [address] [place] [address] 2014 [place] [address] Paroxysmal A-fib 07/21/2024 9:53 AM HELP DESK COORDINATOR - 07/21/2024 11:46 AM HELP DESK COORDINATOR Surgery [facility] Bike Assembler [address] [place] [address] iKel Vasquez MD [facility] S [facility] 2014 [place] [address] Left atrial appendage closure percutaneous 07/28/2024 8:30 AM HELP DESK COORDINATOR Office Visit [facility] Oncology and Hematology - [place] [address] [place] [address] Nahid Hickman MD 2227 [facility] [address] [place] [address] 09/09/2024 1:00 PM CDT Office Visit [facility] Heart and Vascular At [address] 2014 [place] [address] Kiel Vasquez MD [address] [place] [address] 2014 [place] [address] 12/16/2024 11:00 AM CDT Office Visit [facility] HEART AND VASCULAR EP AT [address] 2014 [place] [address] Demetrius Bowling, TRUONG [address] [facility] [address] 2014 [place] [address] 02/05/2025 10:45 AM CDT Telephone Check Up [facility] Heart and Vascular At [facility] [address] [facility] [address] [place] [address] 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, CAT [address] [place] [address] documented as of this encounter Visit Diagnoses Not on filedocumented in this encounter Care Teams Rides Supervisor Relationship Specialty Start Date End Date Aliza Bain MD [address] [place] [address] PCP - General Family Practice 11/22/21 documented as of this encounter
--- OUTSIDE RECORDS SUMMARY | 2024-07-01 00:38 | XMS_ITS | Encounter Summary ---
Author Organization [facility] Address [address] [place] [address] Care Team Providers Care Raise Driller Name Role Phone Aliza Bain MD Primary Care Provider Encounter Details Date Type Department Care Team (Late st Contact Info) Description 01/18/2024 Abstract [facility] Heart and Vascular At [address] [place] [address] Kiel Vasquez MD [address] [place] [address] 2014 [place] [address] Social History Tobacco Use Types [...] and Family Not on file 07/29/2020 Attends Mu-Ism Services Not on file 07/29 Do you [...] st Contact Info) Description 2024 11:00 AM PONY ROLL FINISHER Appointment [facility] [address] [place] [address] 07/21/2024 9:45 AM PONY ROLL FINISHER Appointment [facility] Manifest/Order Organizer Print Orders [address] [place] [phone] Kiel Vasquez MD [address] [facility] 2014 [place] [address] 07/21/2024 9:53 AM PONY ROLL FINISHER Hospital Encounter [facility] Manifest/Order Organizer Print Orders [address] [place] [address] Kiel Vasquez MD [facility] S [facility] 2014 [place] [address] Paroxysmal A-fib 07/21/2024 9:53 AM PONY ROLL FINISHER - 07/21/2024 11:46 AM PONY ROLL FINISHER Surgery [facility] Manifest/Order Organizer Print Orders [address] [place] [phone] Kiel Vasquez MD [address] [place] [address] 2014 [place] [address] Left atrial appendage closure percutaneous 07/28/2024 8:30 AM PONY ROLL FINISHER Office Visit [facility] Oncology and Hematology - [place] 2227 [facility] 200 [place] [address] Nahid Hickman MD [address] [facility] [address] [place] [address] 09/09/2024 1:00 PM CDT Office Visit [facility] Heart and Vascular At [address] 2014 [place] [address] Kiel Vasquez MD [address] [place] [address] 2014 [place] [address] 12/16/2024 11:00 AM CDT Office Visit [facility] HEART AND VASCULAR EP AT [address] 2014 [place] [address] Demetrius Bowling DNP [address] [place] [address] 2014 [place] [address] 02/05/2025 10:45 AM CDT Telephone Check Up [facility] Heart and Vascular At [address] 2014 [place] [address] Maeknzie Coe FNP [address] [place] [address] documented as of this encounter Visit Diagnoses Not on filedocumented in this encounter Care Teams Raise Driller Relationship Specialty Start Date End Date Aliza Bain MD [address] [place] [address] PCP - General Family Practice 11/22/21 documented as of this encounter
--- OUTSIDE RECORDS SUMMARY | 2024-07-01 00:38 | XMS_ITS | Encounter Summary ---
Author Organization [facility] [employer] [facility] Address [address] [place] [address] Care Team Providers Care Flap Presser Name Role Phone Aliza Bain MD Primary Care Provider Reason for Visit * Reason Onset Date Comments Medication Refill 04/25/2024 Encounter Details Date Type Department Care Team (Late st Contact Info) Description 04/25/2024 Refill [facility] Oncology and Hematology - [place] [address] [place] [address] Yasmin Lam MD [address] [place] [address] Social History Tobacco Use Types [...] and Family Not on file 07/29/2020 Attends Orthodoxy Services Not on file 07/29 Do you belong to any clubs o r organizations such as sikhism groups, unions, fraternal or athletic groups, or [...] st Contact Info) Description 2024 11:00 AM DIGITAL PHOTO PRINTER Appointment [facility] [address] [place] [address] 07/21/2024 9:45 AM DIGITAL PHOTO PRINTER Appointment [facility] Data Examination Clerk [address] [place] [address] Kiel Vasquez MD 625 [address] [facility] 2014 [place] [address] 07/21/2024 9:53 AM DIGITAL PHOTO PRINTER Hospital Encounter [facility] Data Examination Clerk [address] [place] [address] Kiel Vasquez MD [facility] S [facility] 2014 [place] [address] Paroxysmal A-fib 07/21/2024 9:53 AM DIGITAL PHOTO PRINTER - 07/21/2024 11:46 AM DIGITAL PHOTO PRINTER Surgery [facility] Data Examination Clerk [address] [place] [address] Kiel Vasquez MD [facility] S [facility] 2014 [place] [address] Left atrial appendage closure percutaneous 07/28/2024 8:30 AM DIGITAL PHOTO PRINTER Office Visit [facility] Oncology and Hematology - [place] [address] [address] Nahid Hickman MD 2227 [facility] [address] [place] [address] 09/09/2024 1:00 PM CDT Office Visit [facility] Heart and Vascular At [address] 2014 [place] [address] Kiel Vasquez MD [facility] S [facility] 2014 [place] [address] 12/16/2024 11:00 AM CDT Office Visit [facility] HEART AND VASCULAR EP AT [address] [place] [address] Demetrius Bowling DNP [address] [place] [address] 2014 [place] [address] 02/05/2025 10:45 AM CDT Telephone Check Up [facility] Heart and Vascular At [address] [place] [address] 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, AIR CREW OFFICER [address] [place] [address] documented as of this encounter Visit Diagnoses Not on filedocumented in this encounter Care Teams Flap Presser Relationship Specialty Start Date End Date Aliza Bain MD [address] [place] [address] PCP - General Family Practice 11/22/21 documented as of this encounter
--- OUTSIDE RECORDS SUMMARY | 2024-07-01 00:38 | XMS_ITS | Encounter Summary ---
Author Organization [facility] Address [address] [place] [address] Care Team Providers Care Shaper And Presser Name Role Phone Aliza Bain MD Primary Care Provider Reason for Visit * Reason Onset Date Comments Elevated Blood Pressure 02/05/2024 Encounter Details Date Type Department Care Team (Late st Contact Info) Description 02/05/2024 Telephone [facility] Heart and Vascular At [place] [address] [facility] [address] [place] [address] Kiel Vasquez MD [address] [place] [address] 2014 [place] [address] Elevated Blood Pressure Social History Tobacco Use Types Packs/Day Years [...] and Family Not on file 07/29/2020 Attends Anabaptism Services Not on file 07/29 Do you belong to any clubs o r organizations such as baptist groups, unions, fraternal or athletic groups, or [...] Telephone Encounter - Melanie Swenson RN - 02/08/2024 9:28 AM CDT LM for pt, office phone # given. Also sent pt my Ampl[employer] message. * Telephone Encounter - Melanie Swenson RN - 02/06/2024 9:09 AM CDT Images from the original note were not included. Kiel Vasquez MD Kiely, Sarah A, RN Caller: Unspecified (Yesterday, 3:06 PM) Change metoprolol to coreg 12.5mg BID Update us with BP and HR in 1-2 weeks LM for pt, direct phone # given. * Telephone Encounter - Melanie Swenson RN - 02/05/2024 3:39 PM CDT PC to pt: Pt reports BP in the afternoon 180s during PT session while walking on treadmill associated with headache and muffled ear noise. In the morning her BP is 140s while doing house chores. Denies CONDE on the treadmill however walking two blocks outside causes her to be SOB. 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 Denies BLE edema. Currently taking Lopressor 25mg BID and Benicar 40 daily. * Telephone Encounter - Celeste Bruno - 02/05/2024 3:06 PM CDT Pt called and report of elevated BP during her PT session, before PT her BP diastolic is 145 and then after PT become 180, this been going since 2 weeks now. Pt is requesting to call her back at [phone], need to know if her meds need to be adjusted. documented in this encounter Plan of Treatment Upcoming Encounters Date Type Department Care Team (Late st Contact Info) Description 2024 11:00 AM CADDY/CADDIE SUPERVISOR Appointment [facility] [address] [place] [address] 07/21/2024 9:45 AM CADDY/CADDIE SUPERVISOR Appointment [facility] Analytics Analyst [address] [place] [address] Kiel Vasquez MD [address] [facility] 2014 [place] [address] 07/21/2024 9:53 AM CADDY/CADDIE SUPERVISOR Hospital Encounter [facility] Analytics Analyst [address] [place] [address] Kiel Vasquez MD [address] [facility] 2014 [place] [address] Paroxysmal A-fib 07/21/2024 9:53 AM CADDY/CADDIE SUPERVISOR - 07/21/2024 11:46 AM CADDY/CADDIE SUPERVISOR Surgery [facility] Analytics Analyst [address] [place] [address] Kiel Vasquez MD [address] [facility] 2014 [place] [address] Left atrial appendage closure percutaneous 07/28/2024 8:30 AM CADDY/CADDIE SUPERVISOR Office Visit [facility] Oncology and Hematology - [place] 2227 [facility] 200 [place] [address] Nahid Hickman MD 2[address] [facility] [address] [place] [address] 09/09/2024 1:00 PM CDT Office Visit [facility] Heart and Vascular At [address] 2014 [place] [address] Kiel Vasquez MD [facility] S [facility] 2014 [place] [address] 12/16/2024 11:00 AM CDT Office Visit [facility] HEART AND VASCULAR EP AT [address] [place] [address] Demetrius Bowling DNP [address] [place] [address] 2014 [place] [address] 02/05/2025 10:45 AM CDT Telephone Check Up [facility] Heart and Vascular At [address] 2014 [place] [address] 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, FORMULATOR [address] [place] [address] documented as of this encounter Visit Diagnoses Not on filedocumented in this encounter Care Teams Shaper And Presser Relationship Specialty Start Date End Date Aliza Bain MD [address] [place] [address] PCP - General Family Practice 11/22/21 documented as of this encounter
--- OUTSIDE RECORDS SUMMARY | 2024-07-01 00:38 | XMS_ITS | Encounter Summary ---
Author Organization [facility] Address [address] [place] [address] Care Team Providers Care Broomcorn Scraper Name Role Phone Aliza Bain MD Primary Care Provider Encounter Details Date Type Department Care Team (Late st Contact Info) Description 01/25/2024 Abstract [facility] Heart and Vascular At [address] [place] [address] Kiel Vasquez MD [address] [place] [address] 2014 [place] [address] Social History Tobacco Use Types [...] and Family Not on file 07/29/2020 Attends Jain Services Not on file 07/29 Do you belong to any clubs o r organizations such as amish groups, unions, fraternal or athletic groups, or [...] st Contact Info) Description 2024 11:00 AM FIREBOAT OPERATOR Appointment [facility] [address] [place] [address] 07/21/2024 9:45 AM FIREBOAT OPERATOR Appointment [facility] Fruit [employer] Agent [address] [place] [address] Kiel Vasquez MD [address] [facility] 2014 [place] [address] 07/21/2024 9:53 AM FIREBOAT OPERATOR Hospital Encounter [facility] [address] [place] [address] Kiel Vasquez MD [facility] S [facility] 2014 [place] [address] Paroxysmal A-fib 07/21/2024 9:53 AM FIREBOAT OPERATOR - 07/21/2024 11:46 AM FIREBOAT OPERATOR Surgery [facility] [address] [place] [phone] Kiel Vasquez MD [address] [place] [address] 2014 [place] [address] Left atrial appendage closure percutaneous 07/28/2024 8:30 AM FIREBOAT OPERATOR [facility] Oncology and Hematology - [place] 2227 [facility] 200 [place] [address] Nahid Hickman MD 2227 [facility] [address] [place] [address] 09/09/2024 1:00 PM CDT Office Visit [facility] Heart and Vascular At [address] [place] [address] Kiel Vasquez MD [address] [place] [address] 2014 [place] [address] 12/16/2024 11:00 AM CDT Office Visit [facility] HEART AND VASCULAR EP AT [address] [place] [address] Demetrius Bowling DNP [address] [place] [address] 2014 [place] [address] 02/05/2025 10:45 AM CDT Telephone Check Up [facility] Heart and Vascular At [address] [place] [address] 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 FNP [address] [place] [address] documented as of this encounter Visit Diagnoses Not on filedocumented in this encounter Care Teams Broomcorn Scraper Relationship Specialty Start Date End Date Aliza Bain MD [address] [place] [address] PCP - General Family Practice 11/22/21 documented as of this encounter
--- OUTSIDE RECORDS SUMMARY | 2024-07-01 00:38 | XMS_ITS | Encounter Summary ---
Author Organization [facility] [employer] [facility] Address [address] [place] [address] Care Team Providers Care Retail Associate Name Role Phone Aliza Bain MD Primary Care Provider Encounter Details Date Type Department Care Team (Late st Contact Info) Description 12/10/2023 Orders Only [facility] Oncology and Hematology - [place] [address] [facility] 200 [place] [address] Nahid Hickman MD [address] [employer] [address] [place] [address] Social History Tobacco Use Types [...] and Family Not on file 07/29/2020 Attends Zoroastrian Services Not on file 07/29 Do you [...] st Contact Info) Description 2024 11:00 AM LAB ANIMAL TECHNICIAN Appointment [facility] [address] [place] [address] 07/21/2024 9:45 AM LAB ANIMAL TECHNICIAN Appointment [facility] Family Practice Nurse Practitioner [address] [facility] [place] [address] Kiel Vasquez MD [address] [facility] 2014 [place] [address] 07/21/2024 9:53 AM LAB ANIMAL TECHNICIAN Hospital Encounter [facility] Family Practice Nurse Practitioner [address] [place] [address] Kiel Vasquez MD [facility] S [facility] 2014 [place] [address] Paroxysmal A-fib 07/21/2024 9:53 AM LAB ANIMAL TECHNICIAN - 07/21/2024 11:46 AM LAB ANIMAL TECHNICIAN Surgery [facility] Family Practice Nurse Practitioner [address] [place] [address] Kiel Vasquez MD [address] [place] [address] 2014 [place] [address] Left atrial appendage closure percutaneous 07/28/2024 8:30 AM LAB ANIMAL TECHNICIAN Office Visit [facility] Oncology and Hematology - [place] 2227 [facility] 200 [place] [address] Nahid Hickman MD 2227 [facility] [address] [place] [address] 09/09/2024 1:00 PM CDT Office Visit [facility] Heart and Vascular At [address] 2014 [place] [address] Kiel Vasquez MD [address] [place] [address] 2014 [place] [address] 12/16/2024 11:00 AM CDT Office Visit [facility] HEART AND VASCULAR EP AT [address] [place] [address] Demetrius Bowling DNP [address] [place] [address] 2014 [place] [address] 02/05/2025 10:45 AM CDT Telephone Check Up [facility] Heart and Vascular At [address] [place] [address] 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 FNP [address] [place] [address], [place] [address] documented as of this encounter Procedures Procedure Name Priority Date/Time Associated Diagnosis Comments PROTEIN TOTAL Routine 11/27/2023 3:52 PM CDT documented in this encounter Results * PROTEIN TOTAL (11/27/2023 3:52 PM CDT) Blood Nahid Hickman MD CHEMISTRY ORDERABLES documented in this encounter Visit Diagnoses Not on filedocumented in this encounter Care Teams Retail Associate Relationship Specialty Start Date End Date Aliza Bain MD [address] [place] [address] PCP - General Family Practice 11/22/21 documented as of this encounter
--- OUTSIDE RECORDS SUMMARY | 2024-07-01 00:38 | XMS_ITS | Encounter Summary ---
Author Organization [facility] Address [address] [place] [address] Care Team Providers Care Dance Historian Name Role Phone Aliza Bain MD Primary Care Provider Encounter Details Date Type Department Care Team (Late st Contact Info) Description 05/30/2024 Prep for Surgery [facility] Heart and Vascular At [address] [place] [address] Margie Leonard RN Social History Tobacco Use [...] and Family Not on file 07/29/2020 Attends Congregation Services Not on file 07/29 Do you belong to any clubs o r organizations such as yazidi groups, unions, fraternal or athletic groups, or [...] st Contact Info) Description 2024 11:00 AM ENVIRONMENTAL HEALTH AND SAFETY LEADER Appointment [facility] [address] [place] [address] 07/21/2024 9:45 AM ENVIRONMENTAL HEALTH AND SAFETY LEADER Appointment [facility] Experimental Plastics Fabricator [address] [place] [address] Kiel Vasquez MD [address] [place] [address] 07/21/2024 9:53 AM ENVIRONMENTAL HEALTH AND SAFETY LEADER Hospital Encounter [facility] Experimental Plastics Fabricator [address] [place] [address] Kiel Vasquez MD [address] [place] [address] Paroxysmal A-fib 07/21/2024 9:53 AM ENVIRONMENTAL HEALTH AND SAFETY LEADER - 07/21/2024 11:46 AM ENVIRONMENTAL HEALTH AND SAFETY LEADER Surgery [facility] Experimental Plastics Fabricator [facility] [place] [address] Kiel Vasquez MD [facility] S [facility] 2014 [place] [address] Left atrial appendage closure percutaneous 07/28/2024 8:30 AM ENVIRONMENTAL HEALTH AND SAFETY LEADER Office Visit [facility] Oncology and Hematology - [place] 2227 [facility] 200 [place] [address] Nahid Hickman MD 2227 [facility] [address] [place] [address] 09/09/2024 1:00 PM CDT Office Visit [facility] Heart and Vascular At [address] [place] [address] Kiel Vasquez MD [address] [place] [address] 2014 [place] [address] 12/16/2024 11:00 AM CDT Office Visit [facility] HEART AND VASCULAR EP AT [address] [place] [address] Demetrius Bowling DNP [address] [place] [address] 2014 [place] [address] 02/05/2025 10:45 AM CDT Telephone Check Up [facility] Heart and Vascular At [address] [place] [address] 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 FNP [facility] [place] [address] documented as of this encounter Visit Diagnoses Not on filedocumented in this encounter Care Teams Dance Historian Relationship Specialty Start Date End Date Aliza Bain MD [address] [place] [address] PCP - General Family Practice 11/22/21 documented as of this encounter
--- OUTSIDE RECORDS SUMMARY | 2024-07-01 00:39 | XMS_ITS | Encounter Summary ---
Author Organization [facility] [employer] [facility] Address [address] [place] [address] Care Team Providers Care Product Management Manager Name Role Phone Aliza Bain MD Primary Care Provider Encounter Details Date Type Department Care Team (Late st Contact Info) Description 12/03/2023 Orders Only [facility] Oncology and Hematology - [place] [address] [employer] [facility] 200 [place] [address] Nahid Hickman MD [address] [employer] [address] [place] [address] Social History Tobacco Use Types [...] any clubs o r organizations such as baptism groups, unions, fraternal or athletic groups, or [...] st Contact Info) Description 2024 11:00 AM WHEEL LOADER OPERATOR Appointment [facility] [address] [place] [address] 07/21/2024 9:45 AM WHEEL LOADER OPERATOR Appointment [facility] Software Asset Manager [address] [facility] [place] [address] Kiel Vasquez MD [address] [facility] 2014 [place] [address] 07/21/2024 9:53 AM WHEEL LOADER OPERATOR Hospital Encounter [facility] Software Asset Manager [address] [place] [address] Kiel Vasquez MD [facility] S [facility] 2014 [place] [address] Paroxysmal A-fib 07/21/2024 9:53 AM WHEEL LOADER OPERATOR - 07/21/2024 11:46 AM WHEEL LOADER OPERATOR Surgery [facility] Software Asset Manager [address] [place] [phone] Kiel Vasquez MD [address] [place] [address] 2014 [place] [address] Left atrial appendage closure percutaneous 07/28/2024 8:30 AM WHEEL LOADER OPERATOR Office Visit [facility] Oncology and Hematology - [place] 2227 [facility] 200 [place] [address] Nahid Hickman MD [address] [employer] [address] [place] [address] 09/09/2024 1:00 PM CDT Office Visit [facility] Heart and Vascular At [address] 2014 [place] [address] Kiel Vasquez MD [address] [place] [address] 2014 [place] [address] 12/16/2024 11:00 AM CDT Office Visit [facility] HEART AND VASCULAR EP AT [address] 2014 [place] [address] Demetrius Bowling DNP [address] [place] [address] 2014 [place] [address] 02/05/2025 10:45 AM CDT Telephone Check Up [facility] Heart and Vascular At [address] 2014 [place] [address] 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 FNP [address] [place] [address], [place] [address] documented as of this encounter Procedures Procedure Name Priority Date/Time Associated Diagnosis Comments PROTEIN ELECTROPHORESIS, CSF Routine 11/27/2023 2:49 PM CDT documented in this encounter Results * PROTEIN ELECTROPHORESIS, CSF (11/27/2023 2:49 PM CDT) Cerebrospinal fluid CEREBROSPINAL FLUID / Unknown Nahid Hickman MD BODY FLUIDS AND STOO LS documented in this encounter Visit Diagnoses Not on filedocumented in this encounter Care Teams Product Management Manager Relationship Specialty Start Date End Date Aliza Bain MD [address] [place] [address] PCP - General Family Practice 11/22/21 documented as of this encounter
--- OUTSIDE RECORDS SUMMARY | 2024-07-01 00:39 | XMS_ITS | Encounter Summary ---
Author Organization [facility] Address [address] [place] [address] Care Team Providers Care Inside Meter Tester Name Role Phone Aliza Bain MD Primary Care Provider Encounter Details Date Type Department Care Team (Late st Contact Info) Description 11/20/2023 External Device Data STL ABSTRACTION Provider, Abstract [...] st Contact Info) Description 2024 11:00 AM AUTOMOTIVE PARTS PERSON Appointment [facility] [address] [place] [address] 07/21/2024 9:45 AM AUTOMOTIVE PARTS PERSON Appointment [facility] Banking Services Officer [address] [place] [phone] Kiel Vasquez MD [address] [place] 2014 [place] [address] 07/21/2024 9:53 AM AUTOMOTIVE PARTS PERSON Hospital Encounter [facility] Banking Services Officer [address] [place] [address] Kiel Vasquez MD [address] 2014 [place] [address] Jesse Lackey-shirley 07/21/2024 9:53 AM AUTOMOTIVE PARTS PERSON - 07/21/2024 11:46 AM AUTOMOTIVE PARTS PERSON Surgery [facility] Banking Services Officer [address] [place] [address] Kiel Vasquez MD [address] [place] [address] 2014 [place] [address] Left atrial appendage closure percutaneous 07/28/2024 8:30 AM AUTOMOTIVE PARTS PERSON Office Visit [facility]3] Oncology and Hematology - [place] 2227 [facility] 200 [place] [address] Nahid Hickman MD 2227 [facility] [address] [place] [address] 09/09/2024 1:00 PM CDT Office Visit [facility]3] Heart and Vascular At [address] 2014 [place] [address] Kiel Vasquez MD [address] [place] [address] 2014 [place] [address] 12/16/2024 11:[address] AM CDT Office [facility] HEART AND VASCULAR EP AT [address] 2014 [place] [address] Demetrius Bowling DNP [address] [place] [address] 2014 [place] [address] 02/05/2025 10:45 AM CDT Telephone Check Up [facility]3] Heart and Vascular At [address] 2014 [place] [address] 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 FNP [address] [place] [address] documented as of this encounter Visit Diagnoses Not on filedocumented in this encounter Care Teams Inside Meter Tester Relationship Specialty Start Date End Date Aliza Bain MD [address] [place] [address] PCP - General Family Practice 11/22/21 documented as of this encounter
--- OUTSIDE RECORDS SUMMARY | 2024-07-01 00:39 | XMS_ITS | Encounter Summary ---
Author Organization [facility] [employer] [facility] Address [address] [place] [address] Care Team Providers Care Lpn Rn Hospice Name Role Phone Aliza Bain MD Primary Care Provider Encounter Details Date Type Department Care Team (Late st Contact Info) Description 11/27/2023 Orders Only [facility] Oncology and Hematology - [place] [address] [employer] [facility] 200 [place] [address] Nahid Hickman MD [address] [employer] [address] [place] [address] Social History Tobacco Use Types [...] any clubs o r organizations such as sikh groups, unions, fraternal or athletic groups, or [...] st Contact Info) Description 2024 11:00 AM TUB MENDER Appointment [facility] [address] [place] [address] 07/21/2024 9:45 AM TUB MENDER Appointment [facility] Combine Operator [address] [facility] [place] [address] Kiel Vasquez MD [address] [facility] 2014 [place] [address] 07/21/2024 9:53 AM TUB MENDER Hospital Encounter [facility] Combine Operator [address] [place] [address] Kiel Vasquez MD [facility] S [facility] 2014 [place] [address] Paroxysmal A-fib 07/21/2024 9:53 AM TUB MENDER - 07/21/2024 11:46 AM TUB MENDER Surgery [facility] Combine Operator [address] [place] [address] Kiel Vasquez MD [address] [place] [address] 2014 [place] [address] Left atrial appendage closure percutaneous 07/28/2024 8:30 AM TUB MENDER Office Visit [facility] Oncology and Hematology - [place] 2227 [facility] 200 [place] [address] Nahid Hickman MD [address] [facility] [address] [place] [address] 09/09/2024 1:00 PM CDT Office Visit [facility] Heart and Vascular At [address] 2014 [address] Kiel Vasquez MD [address] [place] [address] 2014 [place] [address] 12/16/2024 11:00 AM CDT Office Visit [facility] HEART AND VASCULAR EP AT [address] 2014 [address] Demetrius Bowling DNP [address] [place] [address] 2014 [place] [address] 02/05/2025 10:45 AM CDT Telephone Check Up [facility] Heart and Vascular At [address] 2014 [address] 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 FNP [address] [place] [address], [place] [address] documented as of this encounter Procedures Procedure Name Priority Date/Time Associated Diagnosis Comments COMPREHENSIVE METABOLIC PANEL Routine 11/27/2023 3:[address] CHEST W CONTRAST Routine 11/27/2023 2 :52 PM CDT documented in this encounter Results * COMPREHENSIVE METABOLIC PANEL (11/27/2023 3:40 PM CDT) Blood Nahid Hickman MD CHEMISTRY ORDERABLES * CT CHEST W CONTRAST (11/27/2023 2:52 PM CDT) Anatomical Region Laterality Modality Chest Other Nahid Hickman MD CT ORDERABLES documented in this encounter Visit Diagnoses Not on filedocumented in this encounter Care Teams Lpn Rn Hospice Relationship Specialty Start Date End Date Aliza Bain MD [address] [place] [address] PCP - General Family Practice 11/22/21 documented as of this encounter
--- OUTSIDE RECORDS SUMMARY | 2024-07-01 00:39 | XMS_ITS | Encounter Summary ---
Author Organization [facility] [employer] [facility] Address [address] [place] [address] Care Team Providers Care Art Therapy Certified Supervisor Name Role Phone Aliza Bain MD Primary Care Provider Encounter Details Date Type Department Care Team (Late st Contact Info) Description 11/29/2023 Orders Only [facility] Oncology and Hematology - [place] [address] [employer] [facility] 200 [place] [address] Nahid Hickmna MD [address] [employer] [address] [place] [address] Social History Tobacco Use Types [...] and Family Not on file 07/29/2020 Attends Gnosticism Services Not on file 07/29 Do you [...] st Contact Info) Description 2024 11:00 AM GLUING MACHINE OPERATOR Appointment [facility] [address] [place] [address] 07/21/2024 9:45 AM GLUING MACHINE OPERATOR Appointment [facility] Electroneurodiagnostic Technician [address] [place] [facility] [place] [address] Kiel Vasquez MD [address] [facility] 2014 [place] [address] 07/21/2024 9:53 AM GLUING MACHINE OPERATOR Hospital Encounter [facility] Electroneurodiagnostic Technician [address] [place] [address] Kiel Vasquez MD [facility] S [facility] 2014 [place] [address] Paroxysmal A-fib 07/21/2024 9:53 AM GLUING MACHINE OPERATOR - 07/21/2024 11:46 AM GLUING MACHINE OPERATOR Surgery [facility] Electroneurodiagnostic Technician [address] [place] [address] Kiel Vasquez MD [address] [place] [address] 2014 [place] [address] Left atrial appendage closure percutaneous 07/28/2024 8:30 AM GLUING MACHINE OPERATOR Office Visit [facility] Oncology and Hematology - [place] 2227 [facility] 200 [place] [address] Nahid Hickman MD 2227 [facility] [address] [place] [address] 09/09/2024 1:00 PM CDT Office Visit [facility] Heart and Vascular At [address] 2014 [place] [address] Kiel Vasquez MD [address] [place] [address] 2014 [place] [address] 12/16/2024 11:00 AM CDT Office Visit [facility] HEART AND VASCULAR EP AT [address] 2014 [place] [address] Demetrius Bowling DNP [address] [place] [address] 2014 [place] [address] 02/05/2025 10:45 AM CDT Telephone Check Up [facility] Heart and Vascular At [address] 2014 [place] [address] 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 FNP [address] [place] [address], [place] [address] documented as of this encounter Procedures Procedure Name Priority Date/Time Associated Diagnosis Comments KAPPA/LAMBDA LIGHT CHAINS Routine 11/27/2023 3:17 PM CDT documented in this encounter Results * KAPPA/LAMBDA, FREE LIGHT CHAINS (11/27/2023 3:17 PM CDT) Blood Nahid Hickman MD CHEMISTRY ORDERABLES documented in this encounter Visit Diagnoses Not on filedocumented in this encounter Care Teams Art Therapy Certified Supervisor Relationship Specialty Start Date End Date Aliza Bain MD [address] [place] [address] PCP - General Family Practice 11/22/21 documented as of this encounter
--- OUTSIDE RECORDS SUMMARY | 2024-07-01 00:39 | XMS_ITS | Encounter Summary ---
Author Organization [facility] Address [address] [place] [address] Care Team Providers Care Automotive Service Advisor Name Role Phone Aliza Bain MD Primary Care Provider Reason for Visit * Reason Onset Date Comments Information 11/20/2023 Encounter Details Date Type Department Care Team (Late st Contact Info) Description 11/20/2023 Telephone [facility] Cardiovas and Thor Surg at [facility] [address] [facility] [address] [place] [address] Edinson Ferrell MD [address] [facility] [address] [place] [address] Information Social History Tobacco Use Types Packs/Day [...] and Family Not on file 07/29/2020 Attends Denominational Services Not on file 07/29 Do you [...] encounter Miscellaneous Notes * Telephone Encounter - Amy Recinos RN - 11/20/2023 4:09 PM CDT [facility], advised patient's BP monitor not accurate, reading 30 points lower. Would request a new BP monitor from [employer]. BP today 170/72. Home health advised that patient ran out of metoprolol and has not been taking for 1 week. Advised [facility], that metoprolol has been refilled and to picker operator, also encouraged a new BP monitor to accurately record BP. documented in this encounter Plan of Treatment Upcoming Encounters Date Type Department Care Team (Late st Contact Info) Description 2024 11:00 AM BOARD OF DIRECTORS Appointment [facility] [address] [place] [address] 07/21/2024 9:45 AM BOARD OF DIRECTORS Appointment [facility] Cytogeneticist [address] [place] [address] Kiel Vasquez MD [address] [facility] 2014 [place] [address] 07/21/2024 9:53 AM BOARD OF DIRECTORS Hospital Encounter [facility] Cytogeneticist [address] [place] [address] Kiel Vasquez MD [address] [facility] 2014 [place] [address] Paroxysmal A-fib 07/21/2024 9:53 AM BOARD OF DIRECTORS - 07/21/2024 11:46 AM BOARD OF DIRECTORS Surgery [facility] Cytogeneticist [address] [place] [address] Kiel Vasquez MD [address] [facility] 2014 [place] [address] Left atrial appendage closure percutaneous 07/28/2024 8:30 AM BOARD OF DIRECTORS Office Visit [facility] Oncology and Hematology - [place] [address] [place], [place] [address] Nahid Hickman MD [address] [facility] [address] [place] [address] 09/09/2024 1:00 PM CDT Office Visit [facility] Heart and Vascular At [facility] [address] [facility] [address] [place] [address] Kiel Vasquez MD [address] [facility] 2014 [place] [address] 12/16/2024 11:00 AM CDT Office Visit [facility] HEART AND VASCULAR EP AT [place] [address] [place] [address] Demetrius Bowling DNP [address] [facility] 2014 [place] [address] 02/05/2025 10:45 AM CDT Telephone Check Up [facility] Heart and Vascular At [address] [place] [address] 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, CAT [address] [place] [address] documented as of this encounter Visit Diagnoses Not on filedocumented in this encounter Care Teams Automotive Service Advisor Relationship Specialty Start Date End Date Aliza Bain MD [address] [place] [address] PCP - General Family Practice 11/22/21 documented as of this encounter
--- OUTSIDE RECORDS SUMMARY | 2024-07-01 00:39 | XMS_ITS | Encounter Summary ---
Author Organization [facility] [employer] [facility] Address [address] [place] [address] Care Team Providers Care Telehealth Case Manager Name Role Phone Aliza Bain MD Primary Care Provider Reason for Visit * Reason Comments Follow Up Encounter Details Date Type Department Care Team (Late st Contact Info) Description 12/05/2023 10:15 AM CDT Office Visit [facility] Oncology and Hematology - [place] 2[address] [facility] 200 [place] [address] Nahid Hickman MD [address] [facility] [address] [place] [address] Chronic anemia (Primary Dx) Social [...] Sign Reading Time Taken Comments Blood Pressure 154/70 12/05/2023 10:45 AM CDT Pulse 63 12/05/2023 10:45 AM CDT Temperature 36.7 ??C (98 ??F) 12/05/2023 10:40 AM CDT Respiratory Rate 16 12/05/2023 10:40 AM CDT Oxygen Saturation 95% 12/05/2023 10:40 AM CDT Inhaled Oxygen Concentration - - Weight 57.6 kg (127 lb) 12/05/2023 10:40 AM CDT Height - - Body Mass Index 22.5 11/22/2023 9:43 AM CDT documented in this encounter Progress Notes * Nahid Hickman MD - 12/05/2023 11:20 AM CDT HEMATOLOGY / ONCOLOGY PROGRESS [...] Monoclonal gammopathy of unknown significance CURRENT TREATMENT Surveillance TREATMENT HISTORY Right upper lobe lobectomy done on August 31, 2020. 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 Status post ablation for the atrial fibrillation in August 2021 SUBJECTIVE Patient came to the office for follow-up visit. She had coronary artery bypass grafting x 3 done onMay 9 and recovering well. She has some shortness of breath and dyspnea on exertion. No chest pain.Denies any excessive tiredness and fatigue. No bone pain and neuropathy. No other new complaints. Review of system Constitutional: denies fevers, sweats, complain of mild tiredness and fatigue, weight and appetite stable HEENT: denies sinus congestion, hearing or vision problems Respiratory: denies cough,, some dyspnea on exertion Cardiovascular: denies chest pain, [...] creatinine 0.9 calcium 9.3 M spike 0.8 [place] lightchain 26.2 lambda light chain 97 Labs from May 28 showed creatinine 1.0 GFR 54 hemoglobin 10.7 Labs from November 26 showed kappa light chain 48 lambda 161 ratio 0.25 creatinine 0.9 hemoglobin 9.4 MCV 94 IgA 530 serum protein electrophoresis showed M spike of 0.9 g/dL Assessment: Plan: Patient Active Problem List Diagnosis Date Noted Coronary artery disease 10/19/2023 Mixed hyperlipidemia 01/23/2023 Chronic diastolic dysfunction 12/15/2021 Exertional shortness of breath MGUS (monoclonal gammopathy of unknown significance) 03/15/2021 Benign hypertension 10/01/2020 Carotid artery disease 10/01/2020 Atrial fibrillation 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 Negative ALK gene rearrangement. CT chest done on November 26 showed moderate left and minimal right pleural effusion with no evidence of recurrent disease. Her pleural effusion is likely secondary to recent coronary artery bypass grafting. We discussed performing thoracentesis but she is not much symptomatic. She will contact us backif she get more short of breath and then we will order thoracentesis. MGUS. Labs show slight increase in M spike of 0.9 g/dL. She is asymptomatic. Will continue to observe and repeat myeloma testing will be done in 6 months. Anemia. Hemoglobin has dropped. She will continue oral iron and vitamin B12 daily. Will repeat labsincluding iron and B12 studies in 3 months. Atrial fibrillation status post ablation. She is asymptomatic. Coronary artery disease status post coronary artery bypass grafting done on October 25, 2023. She will follow-up with Dr Mccord. TOBACCO COUNSELING She is not a tobacco/nicotine user. 12/05/2023 Nahid Hickman MD documented in this encounter Plan of Treatment Upcoming Encounters Date Type Department Care Team (Late st Contact Info) Description 2024 11:00 AM WATER SYSTEMS DESIGNER Appointment [facility] [address] [place] [address] 07/21/2024 9:45 AM WATER SYSTEMS DESIGNER Appointment [facility] Mine Captain [address] [place] [address] Kiel Vasquez MD [address] [facility] 2014 [place] [address] 07/21/2024 9:53 AM WATER SYSTEMS DESIGNER Hospital Encounter [facility] Mine Captain [address] [place] [address] Kiel Vasquez MD [facility] S [facility] 2014 [place] [address] Paroxysmal A-fib 07/21/2024 9:53 AM WATER SYSTEMS DESIGNER - 07/21/2024 11:46 AM WATER SYSTEMS DESIGNER Surgery [facility] Mine Captain [address] [place] [address] Kiel Vasquez MD [facility] S [facility] 2014 [place] [address] Left atrial appendage closure percutaneous 07/28/2024 8:30 AM WATER SYSTEMS DESIGNER Office Visit [facility] Oncology and Hematology - [place] [address] [address] Nahid Hickman MD [address] [facility] [address] [place] [address] 09/09/2024 1:00 PM CDT Office Visit [facility] Heart and Vascular At [address] [place] [address] Kiel Vasquez MD [facility] S [facility] 2014 [place] [address] 12/16/2024 11:00 AM CDT Office Visit [facility] HEART AND VASCULAR EP AT [address] [place] [address] Demetrius Bowling DNP [address] [place] [address] 2014 [place] [address] 02/05/2025 10:45 AM CDT Telephone Check Up [facility] Heart and Vascular At [address] [place] [address] 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, FANCY WIRE DRAWER [address] [place] [address] Scheduled Orders Name Type Priority Associated Diagnoses Orde r Schedule FERRITIN Lab Routine Chronic anemia Expected: 02/27/2024, Expires: 12/04/2024 IRON, TIBC, AND PERCENT SATURATION Lab Routine Chronic anemia Expected: 02/27/2024, Expires: 12/04/2024 VITAMIN B12 AND FOLATE Lab Routine Chronic anemia Expected: 02/27/2024, Expires: 12/04/2024 documented as of this encounter Visit Diagnoses Diagnosis Chronic anemia- Primary Anemia, unspecified Paroxysmal atrial fibrillation- Primary Atrial fibrillation Paroxysmal A-fib Atrial fibrillation Paroxysmal A-fib Atrial fibrillation documented in this encounter Care Teams Telehealth Case Manager Relationship Specialty Start Date End Date Aliza Bain MD [address] [place] [address] PCP - General Family Practice 11/22/21 documented as of this encounter
--- OUTSIDE RECORDS SUMMARY | 2024-07-01 00:39 | XMS_ITS | Encounter Summary ---
Author Organization [facility] Address [address] [place] [address] Care Team Providers Care Unhairing Inspector Name Role Phone Aliza Bain MD [...] and Family Not on file 07/29/2020 Attends Hindu Services Not on file 07/29 Do you belong to any clubs o r organizations such as voodoo groups, unions, fraternal or athletic groups, or [...] st Contact Info) Description 2024 11:00 AM SPEECH LANGUAGE SPECIALIST Appointment [facility] [address] [place] [address] 07/21/2024 9:45 AM SPEECH LANGUAGE SPECIALIST Appointment [facility] Environmental Safety Specialist [address] [place] [phone] Kiel Vasquez MD [address] [place] [address] 07/21/2024 9:53 AM SPEECH LANGUAGE SPECIALIST Hospital Encounter [facility] Environmental Safety Specialist [address] [place] [address] Kiel Vasquez MD [address] [place] [address] Jesse Lackey-shirley 07/21/2024 9:53 AM SPEECH LANGUAGE SPECIALIST - 07/21/2024 11:46 AM SPEECH LANGUAGE SPECIALIST Surgery [facility] Environmental Safety Specialist [address] [place] [address] Kiel Vasquez MD [address] [place] [address] 2014 [place] [address] Left atrial appendage closure percutaneous 07/28/2024 8:30 AM SPEECH LANGUAGE SPECIALIST Office Visit [facility] Oncology and Hematology - [place] [address] [facility] 200 [place] [address] Nahid Hickman MD [address] [facility] [address] [place] [address] 09/09/2024 1:00 PM CDT Office Visit [facility] Heart and Vascular At [address] 2014 [place] [address] Kiel Vasquez MD [address] [place] [address] 2014 [place] [address] 12/16/2024 11:00 AM CDT Office Visit [facility] HEART AND VASCULAR EP AT [address] 2014 [place] [address] Demetrius Bowling DNP [address] [place] [address] 2014 [place] [address] 02/05/2025 10:45 AM CDT Telephone Check Up [facility] Heart and Vascular At [address] 2014 [place] [address] 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 FNP [address] [place] [address] documented as of this encounter Visit Diagnoses Not on filedocumented in this encounter Care Teams Unhairing Inspector Relationship Specialty Start Date End Date Aliza Bain MD [address] [place] [address] PCP - General Family Practice 11/22/21 documented as of this encounter
--- OUTSIDE RECORDS SUMMARY | 2024-07-01 00:39 | XMS_ITS | Encounter Summary ---
Author Organization [facility] Address [address] [place] [address] Care Team Providers Care Lap Runner Name Role Phone Aliza Bain MD Primary Care Provider Reason for Visit * Reason Onset Date Comments concerns 11/16/2023 Question 11/16/2023 Encounter Details Date Type Department Care Team (Late st Contact Info) Description 11/16/2023 Telephone [facility] Heart and Vascular At [place] [address] [facility] [address] [place] [address] Kiel Vasquez MD [address] [place] [address] 2014 [place] [address] concerns; Question Social History Tobacco Use Types Packs/Day [...] and Family Not on file 07/29/2020 Attends Evangelical Services Not on file 07/29 Do you belong to any clubs o r organizations such as confucianist groups, unions, fraternal or athletic groups, or [...] Telephone Encounter - Melanie Swenson RN - 11/20/2023 10:20 AM CDT Pt has appt with Louise ALMONTE on 11-21. This RN left detailed message for pt, advised that she can call me back to discuss or wait until appt on 11-21 to discuss with Louise ALMONTE. Direct phone # given. * Telephone Encounter - Melanie Swenson RN - 11/16/2023 2:03 PM CDT LM for pt, direct phone # given. * Telephone Encounter - Headley, Kenzie - 11/16/2023 1:58 PM CDT Patient called and stated she had bypass surgery on October 23 and the last sevral days pt bp has been high typically in the morning its 188 or higher. Once pt takes her medicine it goes down only for a short period of time, she would like to know what should she do and what could be causing this to happen. Please call patient at [phone]. Thank you. documented in this encounter Plan of Treatment Upcoming Encounters Date Type Department Care Team (Late st Contact Info) Description 2024 11:00 AM EYELET MAKER Appointment [facility] [address] [place] [address] 07/21/2024 9:45 AM EYELET MAKER Appointment [facility] Professor Of Special Education [address] [place] [address] Kiel Vasquez MD [address] [facility] 2014 [place] [address] 07/21/2024 9:53 AM EYELET MAKER Hospital Encounter [facility] Professor Of Special Education [address] [place] [address] Kiel Vasquez MD [address] [facility] [address] [place] [address] Jesse A-fib 07/21/2024 9:53 AM EYELET MAKER - 07/21/2024 11:46 AM EYELET MAKER Surgery [facility] Professor Of Special Education [address] [place] [address] Kiel Vasquez MD [address] [facility] 2014 [place] [address] Left atrial appendage closure percutaneous 07/28/2024 8:30 AM EYELET MAKER Office Visit [facility] Oncology and Hematology - [place] [address] [facility] 200 [place] [address] Nahid Hickman MD [address] [facility] [address] [place] [address] 09/09/2024 1:00 PM CDT Office Visit [facility] Heart and Vascular At [address] [place] [address] Kiel Vasquez MD [facility] S [facility] 2014 [place] [address] 12/16/2024 11:00 AM CDT Office Visit [facility] [place] HEART AND VASCULAR EP AT [address] [place] [address] Demetrius Bowling DNP [facility] S [facility] 2014 [place] [address] 02/05/2025 10:45 AM CDT Telephone Check Up [facility] Heart and Vascular At [address] [place] [address] 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, METER TESTER PRIMARY [facility] [place] [address] documented as of this encounter Visit Diagnoses Not on filedocumented in this encounter Care Teams Lap Runner Relationship Specialty Start Date End Date Aliza Bain MD [address] [place] [address] PCP - General Family Practice 11/22/21 documented as of this encounter
--- OUTSIDE RECORDS SUMMARY | 2024-07-01 00:39 | XMS_ITS | Encounter Summary ---
Author Organization [facility] Address [address] [place] [address] Care Team Providers Care Vehicle Cost Engineer Name Role Phone Aliza Bain MD Primary Care Provider Encounter Details Date Type Department Care Team (Late st Contact Info) Description 11/21/2023 Orders Only [facility] Heart and Vascular At [address] [place] [address] Melanie Swenson, RN Social History Tobacco Use Types Packs/Day [...] any clubs o r organizations such as hinduism groups, unions, fraternal or athletic groups, or [...] st Contact Info) Description 2024 11:00 AM CERTIFIED MEDICATION AIDE Appointment [facility] [address] [place] [address] [place] [address] 07/21/2024 9:45 AM CERTIFIED MEDICATION AIDE Appointment [facility] Plant Maintenance Supervisor [address] [place] [address] Kiel Vasquez MD [address] 2014 [place] [address] 07/21/2024 9:53 AM CERTIFIED MEDICATION AIDE Hospital Encounter [facility] Plant Maintenance Supervisor [address] [place] [address] Kiel Vasquez MD [address] [place] [address] Paroxysmal A-fib 07/21/2024 9:53 AM CERTIFIED MEDICATION AIDE - 07/21/2024 11:46 AM CERTIFIED MEDICATION AIDE Surgery [facility] Plant Maintenance Supervisor [address] [place] [phone] Kiel Vasquez MD [address] [place] [address] 2014 [place] [address] Left atrial appendage closure percutaneous 07/28/2024 8:30 AM CERTIFIED MEDICATION AIDE Office Visit [facility] Oncology and Hematology - [place] [address] [facility] 200 [place] [address] Nahid Hickman MD [address] [facility] [address] [place] [address] 09/09/2024 1:00 PM CDT Office Visit [facility] Heart and Vascular At [address] 2014 [place] [address] Kiel Vasquez MD [address] [place] [address] 2014 [place] [address] 12/16/2024 11:00 AM CDT Office Visit [facility] HEART AND VASCULAR EP AT [address] [place] [address] Demetrius Bowling DNP [address] [place] [address] 2014 [place] [address] 02/05/2025 10:45 AM CDT Telephone Check Up [facility] Heart and Vascular At [address] [place] [address] 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 FNP [address] [place] [address] documented as of this encounter Visit Diagnoses Not on filedocumented in this encounter Care Teams Vehicle Cost Engineer Relationship Specialty Start Date End Date Aliza Bain MD [address] [place] [address] PCP - General Family Practice 11/22/21 documented as of this encounter
--- OUTSIDE RECORDS SUMMARY | 2024-07-01 00:39 | XMS_ITS | Encounter Summary ---
Author Organization [facility] Address [address] [place] [address] Care Team Providers Care Director Product Name Role Phone Aliza Bain MD Primary Care Provider Reason for Visit * Reason Comments Follow Up Encounter Details Date Type Department Care Team (Late st Contact Info) Description 11/21/2023 10:00 AM CDT Office Visit [facility] Cardiovas and Thor Surg at [facility] [address] [facility] [address] [place] [address] Edinson Ferrell MD [facility] S [facility] [address] [place] [address] Preop examination (Primary Dx) Social History Tobacco Use Types [...] Sign Reading Time Taken Comments Blood Pressure 160/70 11/21/2023 10:19 AM CDT Pulse 71 11/21/2023 10:19 AM CDT Temperature - - Respiratory Rate - - Oxygen Saturation 98% 11/21/2023 10:19 AM CDT Inhaled Oxygen Concentration - - Weight 61.7 kg (136 lb) 11/21/2023 10:19 AM CDT Height 160 cm (5' 3 ) 11/21/2023 10:19 AM CDT Body Mass Index 24.09 11/21/2023 10:19 AM CDT documented in this encounter Progress Notes * Edinson Ferrell MD - 11/21/2023 10:00 AM CDT Subjective: Cassandra Martinez is a 78 y.o. female who underwent CABG X 3 and off pump on 10/21. Hospital discharge date: 10/30 Referring/Consulting MDs: nile Bain Brief History and Hospital Course: HPI: This was a 78-year-old female who was admitted to the hospital with acute coronary syndrome with finding of severe coronary artery disease including left main and proximal right disease. In viewof these findings, the patient was referred for surgical evaluation. The patient was seen and evaluated. We have done a lobectomy on the patient previously with complete resection . operation, risks,benefits, complications, recuperation period, alternatives were all explained. Questions were answered. Possible complications were explained including, but not limited to infection, bleeding, need for transfusion, reexploration, OK, CVA, renal and pulmonary GI complications, vascular problem, and . The patient agreed to proceed. On 10/21 Dr. Ferrell performed a CABG as described above. The operation was tolerated well and the patient was transferred to the CVICU in stable condition. She was extubated later without difficulty. On post operative day number one, her mediastinal chest tubes were removed without incident. She hadbrief episode of hypotension and bradycardia. She was started on dobutamine with improvement and she was ultimately weaned to off. She was weaned off all intravenous medications and all invasive monitoring lines were removed. She was then transferred to the general telemetry floor where ambulation was increased as tolerated. On post operative day number 2, the Demetrius drain and temporary pacing wires were removed without incident. She progressed well without issue. She had recurrent afib and was started on amio gtt. This was discontinued before discharge. On post operative day 8, the patient was educated and prepared for discharge to post-acute care facility Since discharge/last visit, she has been staying at home, SNF, [facility], discharged November 09, home with home health Activity: normal activities of daily living, slowly. Pain level: incisional, mild. Sleep: sleeping well, Appetite: normal, getting better Bowel Habits: returned to normal, taking stool softners Visits to ER? no Readmissions? no Visit to Grab Setter? no, seeing Louise Marie, 11/21 Visit to Primary Care Physician? no, encouraged patient to see PCP Objective: Physical Exam: BP (!) 160/70 Pulse 71 Ht 5' 3 (1.6 m) Wt 61.7 kg (136 lb) SpO2 98% BMI 24.09 kg/m?? General appearance: alert, in no distress Neck: supple, symmetrical, trachea midline, no adenopathy, thyroid: not enlarged, symmetric, no tenderness/mass/nodules, no carotid bruit, and no JVD Lungs: clear to auscultation bilaterally, normal respiratory effort Heart: normal rate, regular rhythm, normal S1, S2, no murmurs, rubs, clicks or gallops Abdomen: Extremities: Wound examination: Chest wound: healing appropriately Leg wound: healing appropriately Groin puncture Ancillary Data: EKG: . CXR: still needs chest xray Labs: Assessment: Patient is doing well status post CABG X 3 and off pump on 10/21. . Ms. Martinez has recovered very well from her surgery. Patient still feels too foggy to drive. We want her to start her normal daily activities and reminded her that she will get sore from the increased activity, this is normal. We did explain that she will still get tired and need to take a break mid-day, this is also normal and will continue to improve with time. We encouraged her to get involved with cardiac rehab and advised her to discuss this with Dr. Vasquez to set that up. We do not need to see her in follow-up again, but encouraged her to call if she has any questions. She is to continue seeing Dr. Vasquez and Aliza Bain MD as scheduled. Edinson Ferrell MD documented in this encounter Miscellaneous Notes * Patient Instructions - Amy Recinos RN - 11/21/2023 10:42 AM CDT CONGRATULATIONS! You have reached the first phase of your recovery! You will now have many of your restrictions released as stated by your surgeon. The following are a few other considerations: Your new medications, aside from pain medicine, should be refilled by either your local coordinator or PCP. It is not necessary to check your blood pressure twice daily any longer. Once a week at random times of the day is suggested. Continue to weigh yourself daily and follow the rule of notifying your Grab Setter should you gain> 3lb in one day or >5lbs in 3 days. You do not need to continue to use the special soap for your incisions. Remember that you will likely continue to have soreness over your sternum as you increase your activity. This will continue a few more months. As you start resuming your previous activity, do so slowly/gradually. Never hesitate to call our office if you have future issues related to the surgery! Good luck! documented in this encounter Plan of Treatment Upcoming Encounters Date Type Department Care Team (Late st Contact Info) Description 2024 11:00 AM TIER OVER Appointment [facility] [address] [place] [address] 07/21/2024 9:45 AM TIER OVER Appointment [facility] Hoof And Shoe Inspector [address] [place] [address] Kiel Vasquez MD [address] [facility] 2014 [place] [address] 07/21/2024 9:53 AM TIER OVER Hospital Encounter [facility] Hoof And Shoe Inspector [address] [place] [address] Kiel Vasquez MD [address] [facility] 2014 [place] [address] Paroxysmal A-fib 07/21/2024 9:53 AM TIER OVER - 07/21/2024 11:46 AM TIER OVER Surgery [facility] Hoof And Shoe Inspector [address] [place] [address] Kiel Vasquez MD [address] [facility] 2014 [place] [address] Left atrial appendage closure percutaneous 07/28/2024 8:30 AM TIER OVER Office Visit [facility] Oncology and Hematology - [place] [address] [facility] 200 [place] [address] Nahid Hickman MD [address] [facility] [address] [place] [address] 09/09/2024 1:00 PM CDT Office Visit [facility] Heart and Vascular At [address] [place] [address] Kiel Vasquez MD [address] [place] [address] 2014 [place] [address] 12/16/2024 11:00 AM CDT Office Visit [facility] HEART AND VASCULAR EP AT [address] [place] [address] Demetrius Bowling DNP [address] [place] [address] 2014 [place] [address] 02/05/2025 10:45 AM CDT Telephone Check Up [facility] Heart and Vascular At [address] [place] [address] 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, SENIOR WEB ENGINEER [facility] [place] [address] documented as of this encounter Visit Diagnoses Diagnosis Preop examination- Primary Preoperative examination, unspecified Paroxysmal atrial fibrillation- Primary Atrial fibrillation Paroxysmal A-fib Atrial fibrillation Paroxysmal A-fib Atrial fibrillation documented in this encounter Care Teams Director Product Relationship Specialty Start Date End Date Aliza Bain MD [address] [place] [address] PCP - General Family Practice 11/22/21 documented as of this encounter
--- OUTSIDE RECORDS SUMMARY | 2024-07-01 00:39 | XMS_ITS | Encounter Summary ---
Author Organization [facility] Address [address] [place] [address] Care Team Providers Care Lab Analyst Name Role Phone Aliza Bain MD Primary Care Provider Reason for Visit * Reason Onset Date Comments Hospital Follow Up 12/03/2023 Encounter Details Date Type Department Care Team (Late st Contact Info) Description 12/03/2023 Telephone [facility] Cardiovas and Thor Surg at [facility] Heart Hosp [address] [facility] [address] [place] [address] Louise Ragsdale, BETHANY [address] [facility] [address] [place] [address] Hospital Follow Up Social History Tobacco Use Types [...] and Family Not on file 07/29/2020 Attends Anabaptist Services Not on file 07/29 Do you belong to any clubs o r organizations such as denominational groups, unions, fraternal or athletic groups, or [...] encounter Miscellaneous Notes * Telephone Encounter - Louise Ragsdale PA - 12/03/2023 12:08 PM CDT CV Surgery 30 Day Follow Up 12/03/23 Contacted Cassandra Martinez for 30 day follow up post CV Surgery, status as follows: 1) Patient alive 30 days after surgery? yes 2) Patient readmitted as an inpatient to any facility within 30 days of discharge of original surgery date? no Readmission Location: Readmission Date: Reason for admission: Procedures Performed: 3) Did patient develop a Deep Sternal Wound Infection within 30 days of CV Surgery? no BETHANY Kohli documented in this encounter Plan of Treatment Upcoming Encounters Date Type Department Care Team (Late st Contact Info) Description 2024 11:00 AM LIFT TRUCK OPERATOR Appointment [facility] [address] [place] [address] 07/21/2024 9:45 AM LIFT TRUCK OPERATOR Appointment [facility] Rider [address] [place] [address] Kiel Vasquez MD [address] [facility] 2014 [place] [address] 07/21/2024 9:53 AM LIFT TRUCK OPERATOR Hospital Encounter [facility] [address] [place] [address] Kiel Vasquez MD 625 [facility] 2014 [place] [address] Paroxysmal A-fib 07/21/2024 9:53 AM LIFT TRUCK OPERATOR - 07/21/2024 11:46 AM LIFT TRUCK OPERATOR Surgery [facility] [address] [place] [address] Kiel Vasquez MD [address] [place] [address] 2014 [place] [address] Left atrial appendage closure percutaneous 07/28/2024 8:30 AM LIFT TRUCK OPERATOR Office Visit [facility] Oncology and Hematology - [place] [address] [facility] 200 [place] [address] Nahid Hickman MD [address] [facility] [address] [place] [address] 09/09/2024 1:00 PM CDT Office Visit [facility] Heart and Vascular At [facility] [address] [facility] [address] [place] [address] Kiel Vasquez MD [address] [facility] 2014 [place] [address] 12/16/2024 11:00 AM CDT Office Visit [facility] HEART AND VASCULAR EP AT [address] [place] [address] Demetrius Bowling DNP [facility] 2014 [place] [address] 02/05/2025 10:45 AM CDT Telephone Check Up [facility] Heart and Vascular At [address] [place] [address] 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 FNP [address] [place] [address] documented as of this encounter Visit Diagnoses Not on filedocumented in this encounter Care Teams Lab Analyst Relationship Specialty Start Date End Date Aliza Bain MD [address] [place] [address] PCP - General Family Practice 11/22/21 documented as of this encounter
--- OUTSIDE RECORDS SUMMARY | 2024-07-01 00:39 | XMS_ITS | Encounter Summary ---
Author Organization [facility] Address [address] [place] [address] Care Team Providers Care Table Lever Operator Name Role Phone Aliza Bain MD Primary Care Provider Reason for Visit * Reason Onset Date Comments Wound Check 10/31/2023 Encounter Details Date Type Department Care Team (Late st Contact Info) Description 10/31/2023 Telephone [facility] Cardiovas and Thor Surg at [facility] [address] [facility] [id number] [place] [address] Edinson Ferrell MD [facility] [address] [facility] [address] [place] [address] Wound Check Social History Tobacco Use Types Packs/Day Years [...] and Family Not on file 07/29/2020 Attends [employer] Services Not on file 07/29 Do you [...] Telephone Encounter - Amy Recinos RN - 10/31/2023 2:57 PM CDT Images from the original note were not included. Ruchi Gil, TUNDE advising patient has a large abscess on L forearm(believed to be from IV), sending a picture via email. Patient given rocephin 1 gm, and tylenol given for low grade temperature T100.1. Dr. Ferrlel observed photos sent, advised swelling due to amiodarone infusion in hospital, apply warm compresses, elevate arm mindful of sternal precautions. Due to low grade fever, advised ambulation, using incentive spirometer every 1 hour 5 deep inhalations. documented in this encounter Plan of Treatment Upcoming Encounters Date Type Department Care Team (Late st Contact Info) Description 2024 11:00 AM SPIRAL RUNNER Appointment [facility] [address] [place] [address] 07/21/2024 9:45 AM SPIRAL RUNNER Appointment [facility] Lean Six Sigma Senior Specialist [address] [place] [address] Kiel Vasquez MD [address] [facility] 2014 [place] [address] 07/21/2024 9:53 AM SPIRAL RUNNER Hospital Encounter [facility] [employer] Senior Specialist [address] [place] [address] Kiel Vasquez MD [address] [facility] 2014 [place] [address] Paroxysmal A-fib 07/21/2024 9:53 AM SPIRAL RUNNER - 07/21/2024 11:46 AM SPIRAL RUNNER Surgery [facility] Le[employer] Senior Specialist [address] [place] [address] Kiel Vasquez MD [address] [facility] 2014 [place] [address] Left atrial appendage closure percutaneous 07/28/2024 8:30 AM SPIRAL RUNNER Office Visit [facility] Oncology and Hematology - [place] [address] [place] [address] [facility] [address] [place] [address] Nahid Hickman MD [address] [facility] [address] [place] [address] 09/09/2024 1:00 PM CDT Office Visit [facility] Heart and Vascular At [facility] [address] [facility] 2014 [place] [address] Kiel Vasquez MD [address] [facility] 2014 [place] [address] 12/16/2024 11:00 AM CDT Office Visit [facility] HEART AND VASCULAR EP AT [place] [address] [facility] 2014 [place] [address] Demetrius Bowling DNP [address] [facility] 2014 [place] [address] 02/05/2025 10:45 AM CDT Telephone Check Up [facility] Heart and Vascular At [place] [address] [facility] 2014 [place] [address] 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 FNP [address] [place] [address] documented as of this encounter Visit Diagnoses Not on filedocumented in this encounter Care Teams Table Lever Operator Relationship Specialty Start Date End Date Aliza Bain MD [address] [place] [address] PCP - General Family Practice 11/22/21 documented as of this encounter
--- OUTSIDE RECORDS SUMMARY | 2024-07-01 00:39 | XMS_ITS | Encounter Summary ---
Author Organization [facility] Address [address] [place] [address] Care Team Providers Care Brand Activation Manager Name Role Phone Aliza Bain MD Primary Care Provider Encounter Details Date Type Department Care Team (Latest Contact Info) Description 11/21/2023 11:42 AM CDT - 11/21/2023 11:59 PM T Hospital Encounter [facility] [place] [address] [place] [address] Edinson Ferrell MD [address] [facility] [address] [place] [address] Discharge Disposition: Home or Self [...] any clubs o r organizations such as evangelical groups, unions, fraternal or athletic groups, or [...] Sig Dispensed Refills Start Date End Date metoprolol tartrate (LOPRESSOR) 25 mg tablet Take [...] tablet Take 100 mcg by mouth daily. calcium-cholecalcifer ol (OS-SUSAN 500+D) 500 mg(1,250mg) -200 unit tablet [...] 40 MG tab1 tab by mouth daily atorvastatin (LIPITOR) 40 mg tablet Take 1 Tablet (40 mg) by mouth daily at bedtime. 30 Tablet 10/30/2023 11/22/2023 documented as of this encounter Plan of Treatment Upcoming Encounters Date Type Department Care Team (Late st Contact Info) Description 2024 11:00 AM HEMSTITCHER Appointment [facility] [address] [place] [address] 07/21/2024 9:45 AM HEMSTITCHER Appointment [facility] Poultryman [address] [place] [address] Kiel Vasquez MD [address] [facility] 2014 [place] [address] 07/21/2024 9:53 AM HEMSTITCHER Hospital Encounter [facility] Poultry[facility] [address] [place] [address] Kiel Vasquez MD [address] [facility] [address] [place] [address] Paroxysmal A-fib 07/21/2024 9:53 AM HEMSTITCHER - 07/21/2024 11:46 AM HEMSTITCHER Surgery [facility] Poultryman [address] [place] [address] Kiel Vasquez MD [address] [facility] [address] [place] [address] Left atrial appendage closure percutaneous 07/28/2024 8:30 AM HEMSTITCHER Office Visit [facility] Oncology and Hematology - [place] [address] [facility] 200 [place] [address] Nahid Hickman MD 2[address] [facility] [address] [place] [address] 09/09/2024 1:00 PM CDT Office Visit [facility] Heart and Vascular At [address] [place] [address] Kiel Vasquez MD [address] [place] [address] [address] [place] [address] 12/16/2024 11:00 AM CDT Office Visit [facility] HEART AND VASCULAR EP AT [address] [place] [address] Demetrius Bowling DNP [address] [place] [address] 2014 [place] [address] 02/05/2025 10:45 AM CDT Telephone Check Up [facility] Heart and Vascular At [address] 2014 [place] [address] 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, CAT [address] [place] [phone] documented as of this encounter Procedures Procedure Name Priority Date/Time Associated Diagnosis Comments XR CHEST PA AND LATERAL 2 VW Routine 11/21/2023 11:53 AM CDT Coronary artery disease, unspecified vessel or lesion type, unspecified whether angina present, unspecified whether [place] or transplanted heart documented in this encounter Results * XR CHEST PA AND LATERAL 2 VW (11/21/2023 11:53 AM CDT) Anatomical Region Laterality Modality Chest Computed Radiogr aphy 11/21/2023 11:5 3 AM CDT Impressions 11/22/2023 9:41 AM CDT IMPRESSION: ?? Bilateral pleural effusions with bibasilar atelectasis, left greater than right. ?? DICTATION LOCATION: [address] Narrative 11/22/2023 9:41 AM CDT EXAM: ??XR CHEST PA AND LATERAL 2 VW DATE: ??11/21/2023 11:53 AM HISTORY: ??Coronary artery disease COMPARISON: ??10/25/2023 FINDINGS: ??PA and lateral views of the chest were submitted for evaluation. ??The cardiac silhouette is within normal limits. ??There are mild bilateral pleural effusions, left greater than right, with associated bibasilar atelectasis. ??There is no pneumothorax or focal infiltrate. ??The right IJ line has been removed. ??There are median sternotomy wires and prosthetic cardiac valves. ??There are mild degenerative changes in the thoracic spine. Procedure Note Juan Medrano MD - 11/22/2023 EXAM: XR CHEST PA AND LATERAL 2 VW DATE: 11/21/2023 11:53 AM HISTORY: Coronary artery disease COMPARISON: 10/25/2023 FINDINGS: PA and lateral views of the chest were submitted for evaluation. The cardiac silhouette is within normal limits. There are mild bilateral pleural effusions, left greater than right, with associated bibasilar atelectasis. There is no pneumothorax or focal infiltrate. The right IJ line has been removed. There are median sternotomy wires and prosthetic cardiac valves. There are mild degenerative changes in the thoracic spine. IMPRESSION: Bilateral pleural effusions with bibasilar atelectasis, left greater than right. DICTATION LOCATION: Location [address] [place] [address] Edinson Ferrell MD DIAGNOSTIC IMAGING O RDERABLES documented in this encounter Visit Diagnoses Diagnosis Coronary artery disease, unspecified vessel or lesion type, unspecified whether angina present, unspecified whether [place] or transplanted heart Paroxysmal atrial fibrillation- Primary Atrial fibrillation Paroxysmal A-fib Atrial fibrillation Paroxysmal A-fib Atrial fibrillation documented in this encounter Care Teams Brand Activation Manager Relationship Specialty Start Date End Date Aliza Bain MD [address] [place] [address] PCP - General Family Practice 11/22/21 documented as of this encounter
--- OUTSIDE RECORDS SUMMARY | 2024-07-01 00:39 | XMS_ITS | Encounter Summary ---
Author Organization [facility] Address [address] [place] [address] Care Team Providers Care Hog Stomach Preparer Name Role Phone Aliza Bain MD Primary Care Provider Reason for Referral * Eval and Treat (Routine) - Closed Specialty Diagnoses / Procedures Referred By Meghana t Referred To Contact Cardiac Rehabilitation Diagnoses Coronary artery disease, unspecified vessel or lesion type, unspecified whether angina present, unspecified whether [place] or transplanted heart Louise Marie FNP [address] [place] [address] [address] [place] [address] Referral ID Status Reason Start Date Expiration Date Visits Re quested Visits Authorized [id number] Closed 11/22/2023 11/21/2024 36 36 Reason for Visit * Reason Comments Follow Up post op CABG Encounter Details Date Type Department Care Team (Latest Contact Info) Description 11/22/2023 10:00 AM CDT Office Visit [facility] Heart and Vascular At [address] [place] [address] Louise Marie FNP [address] [place] [address] [address] [place] [address] Paroxysmal atrial fibrillation (Primary Dx); Benign hypertension; Coronary artery disease, unspecified vessel or lesion type, unspecified whether angina present, unspecified whether [place] or transplanted heart; Mixed hyperlipidemia Social History Tobacco Use Types Packs/Day Years [...] and Family Not on file 07/29/2020 Attends Jewish Services Not on file 07/29 Do you [...] Sign Reading Time Taken Comments Blood Pressure 154/76 11/22/2023 9:43 AM CDT Pulse 68 11/22/2023 9:43 AM CDT Temperature - - Respiratory Rate - - Oxygen Saturation 97% 11/22/2023 9:43 AM CDT Inhaled Oxygen Concentration - - Weight 60.8 kg (134 lb) 11/22/2023 9:43 AM CDT Height 160 cm (5' 3 ) 11/22/2023 9:43 AM CDT Body Mass Index 23.74 11/22/2023 9:43 AM CDT documented in this encounter Progress Notes * Louise Marie, SAUSAGE GRINDER - 11/22/2023 10:00 AM CDT [facility] Heart and Vascular SUBJECTIVE I had the pleasure of seeing Cassandra Martinez in the [facility] Heart and Vascular office for post op CABG follow up. is a pleasant 78 y.o. y.o. female, with past medical history of AF, HTN, lung CA, PAD, HLD, former smoker Primary Harpoon Engagement Planning Operator is Dr. Vasquez She is here today for follow-up from her CABG. She had been reporting dyspnea and fatigue, Dr. Vasquez had sent her for stress test which was abnormal, she she had an outpatient cath on 10/18 which revealed severe critical disease, she remained hospitalized and underwent CABG on 10/21, had some recurrent A-fib postop, treated with amiodarone, she was discharged home on POD #8. Overall doing well, slowly regaining strength, still has dyspnea on exertion. Pain minimal. Has home therapy coming. She ran out of metoprolol and did not take for about one week, BPs have been elevated. Echocardiogram 09/21/2023 STUDY CONCLUSIONS: SUMMARY: - Left ventricle: The cavity size was normal. Wall thickness was increased in a pattern of moderate LVH. Global systolic function is normal. The estimated ejection fraction is 60-65%. For Epic reporting: the left ventricular ejection fraction is 65% . Left ventricular diastolic function parameters are normal. - Left atrium: The atrium is normal in size. - Right ventricle: The cavity size is normal. Systolic function is normal. - Pulmonary arteries: The peak systolic pressure is 26mm Hg. - No significant valvular abnormalities. NM Stress Test 10/03/2023 IMPRESSION: 1) Stress EKG response was positive for ischemia; with significant inferolateral ST segment depression and typical angina pectoris. 2) The overall quality of the study is fair, with increased gut activity which decreases the reliability of the perfusion imaging.. 3) The myocardial perfusion scan is abnormal with evidence of small apical perfusion defect consistent with myocardial ischemia. 4) Left ventricular size is normal with normal left ventricular systolic function, and a calculated ejection fraction of 73%. 5) Compared to previous study, 07/01/2021, ST segment changes, typical angina pectoris, and small apical perfusion abnormality are new Cardiac Catheterization 10/19/2023 Impression: 1. Severe multivessel disease - critical ostial left main, severe ostial RCA 2. Normal LV filling pressure 3. No significant aortic valve gradient Review of Systems: GEN: energy status stable, no fever or chills HEENT: No headaches, loss of consciousness or vision changes Skin: no rashes or bruising/redness Lungs: See HPI CV: See HPI GI: no nausea, vomiting, diarrhea, constipation, abd pain, melena : no dysuria reported or hematuria Neurological: No CVA or TIA symptoms Past Medical History: Diagnosis Date Arthritis Dyspnea on exertion GERD (gastroesophageal reflux disease) HTN (hypertension) Hx of degenerative disc disease Injury of back DDD Malignant neoplasm of lung family history includes Asthma in her sister; Heart Disease in her father and mother; Stroke in hersister. Social History Tobacco Use Smoking status: Former Current packs/day: 0.00 Average packs/day: 0.5 packs/day for 40.0 years (20.0 ttl pk-yrs) Types: Cigarettes Start date: 08/19/1959 Quit date: 08/19/1999 Years since quittin.2 Smokeless tobacco: Never Vaping Use Vaping status: Never Used Substance Use Topics Alcohol use: Yes Comment: occasional Drug use: Never Current Outpatient Medications Medication Sig Dispense Refill metoprolol tartrate (LOPRESSOR) 25 mg tablet Take 1 Tablet (25 mg) by mouth 2 times daily. 180 Tablet 3 atorvastatin (LIPITOR) 40 mg tablet Take 1 Tablet (40 mg) by mouth daily at bedtime. 30 Tablet 0 pyRIDostigmine (MESTINON) 60 mg tablet Take 60 [...] No current facility-administered medications for this visit. Allergies Allergen Reactions Penicillins Hives Tolerates Ancef Recent Labs: Lab Results Component Value Date/Time NA 136 10/29/2023 01:54 AM K 4.2 10/29/2023 01:54 AM CL 102 10/29/2023 01:54 AM CO2 24 10/29/2023 01:54 AM CA 8.5 (L) 10/29/2023 01:54 AM BUN 22 10/29/2023 01:54 AM CREAT 1.03 (H) 10/29/2023 01:54 AM GLUCOSE 117 (H) 10/29/2023 01:54 AM ANIONGAP 10 10/29/2023 01:54 AM No results for input(s): BNP in the last 72 hours. Lab Results Component Value Date CHOLTOT 151 10/19/2023 HDL 44 10/19/2023 LDLCALC 90 10/19/2023 TRIGLYCERIDE 83 10/19/2023 BP (!) 154/76 Pulse 68 Ht 5' 3 (1.6 m) Wt 60.8 kg (134 lb) SpO2 97% BMI 23.74 kg/m?? General: Well developed, well nourished in no acute distress HEENT: Normocephalic Neck: no JVD, no carotid bruits, no adenopathy or mass noted Lungs: Respirations unlabored, clear to auscultation Heart: RRR, normal S1, S2, no S3 or S4, no murmurs, gallops or rubs Abd: Soft, non-tender, non-distended. Normoactive bowel sounds. Extremities: trace LLE edema; No cyanosis, clubbing. Peripheral pulses are 2+ and symmetric Neurologic: Awake, alert and oriented. Non focal. Psych: Mood appropriate. DIAGNOSIS/ASSESSMENT/PLAN CAD s/p CABG on 10/22/2023 HTN, elevated, her Norvasc and hydrochlorothiazide were stopped at discharge, she also was off metoprolol for about one week HLD- started statin last month PAF on Eliquis PLAN: Doing well postoperatively Blood pressures have been elevated but she was out of her metoprolol for a week, now back on it Continue metoprolol 25 mg p.o. twice daily Continue Lipitor 40 mg p.o. daily Continue Eliquis 5 mg p.o. twice daily Continue aspirin 81 mg p.o. daily Continue olmesartan 40 mg p.o. daily Cardiac rehab Instructed her to keep blood pressure log and report back to me in the next week or 2, if remains elevated we will adjust medication--consider adding back hydrochlorothiazide if needed Follow-up with Dr. Vasquez in 4 months CAT [facility] - Heart and Vascular [facility] [address] [place] [address] * Duong Encarnacion - 11/22/2023 9:42 AM CDT Hfu for post op CABG. Pt reports SOB with activity, swelling in ankles. documented in this encounter Miscellaneous Notes * Patient Instructions - Louise Marie FNP - 11/22/2023 10:19 AM CDT Continue same medications Keep BP log and sent us log in 10 days or so-- [employer] message or call [phone] We can add your Norvasc or HCTZ if needed, goal SBP <135 Cardiac rehab- can do [facility] Follow up with Dr. Vasquez in 4 months documented in this encounter Plan of Treatment Upcoming Encounters Date Type Department Care Team (Late st Contact Info) Description 2024 11:00 AM WATERPROOF MATERIAL FOLDER Appointment [facility] [address] [place] [address] 07/21/2024 9:45 AM WATERPROOF MATERIAL FOLDER Appointment [facility] Plant Anatomist [address] [place] [address] Kiel Vasquez MD [address] [facility] 2014 [place] [address] 07/21/2024 9:53 AM WATERPROOF MATERIAL FOLDER Hospital Encounter [facility] Plant Anatomist [address] [place] [address] Kiel Vasquez MD [address] [facility] [address] [place] [address] Paroxysmal A-fib 07/21/2024 9:53 AM WATERPROOF MATERIAL FOLDER - 07/21/2024 11:46 AM WATERPROOF MATERIAL FOLDER Surgery [facility] Plant Anatomist [address] [place] [address] Kiel Vasquez MD [address] [facility] [address] [place] [address] Left atrial appendage closure percutaneous 07/28/2024 8:30 AM WATERPROOF MATERIAL FOLDER Office Visit [facility] Oncology and Hematology - [place] [address] [address] [place] [address] Nahid Hickman MD [address] [facility] [address] [place] [address] 09/09/2024 1:00 PM CDT Office Visit [facility] Heart and Vascular At [address] [place] [address] Kiel Vasquez MD [address] [place] [address] [address] [place] [address] 12/16/2024 11:00 AM CDT Office Visit [facility] HEART AND VASCULAR EP AT [address] [place] [address] Demetrius Bowling DNP [address] [place] [address] [address] [place] [address] 02/05/2025 10:45 AM CDT Telephone Check Up [facility] Heart and Vascular At [address] [place] [address] 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 FNP [address] [place] [phone] Scheduled Referrals Name Type Priority Associated Diagnoses Orde r Schedule AMB REFERRAL TO CARDIAC REHAB Outpatient Referral Routine Coronary artery disease, unspecified vessel or lesion type, unspecified whether angina present, unspecified whether [place]oks[place] or transplanted heart Ordered: 11/22/2023 documented as of this encounter Visit Diagnoses Diagnosis Paroxysmal atrial fibrillation- Primary Atrial fibrillation Benign hypertension Essential hypertension, benign Coronary artery disease, unspecified vessel or lesion type, unspecified whether angina present, unspecified whether [place] or transplanted heart Mixed hyperlipidemia Paroxysmal atrial fibrillation- Primary Atrial fibrillation Paroxysmal A-fib Atrial fibrillation Paroxysmal A-fib Atrial fibrillation documented in this encounter Care Teams Hog Stomach Preparer Relationship Specialty Start Date End Date Aliza Bain MD [address] [place] [phone] PCP - General Family Practice 11/22/21 documented as of this encounter
--- OUTSIDE RECORDS SUMMARY | 2024-07-01 00:39 | XMS_ITS | Encounter Summary ---
Author Organization [facility] Address [address] [place] [address] Care Team Providers Care Programming Internship Name Role Phone Aliza Bain MD Primary Care Provider Reason for Visit * Reason Onset Date Comments Medication Refill 11/16/2023 Encounter Details Date Type Department Care Team (Late st Contact Info) Description 11/16/2023 Refill [facility] At [address] [place] [address] Kiel Vasquez MD [address] [place] [address] [address] [place] [address] Social History Tobacco Use Types [...] Encounter - Melanie Swenson RN - 11/16/2023 12:57 PM CDT Called pt back, left message for pt to call us back if she still has concerns regarding blood pressure, direct phone # given. * Telephone Encounter - Karen Dodson - 11/16/2023 12:00 PM CDT Comments: Patient Blood pressure is high BP is around 189/70 and pulse was 74. Patient was told by Yaa from home health to go to the hospital. Thank You Date Last Seen: 10/19/2023 with Kiel Vasquez MD Next Appointment: 11/22/2023 with Kiel Vasquez MD Last BMP: Lab Results Component Value Date/Time [...] (25 mg) by mouth 2 times daily. 60 Tablet 0 oxyCODONE (ROXICODONE) 5 mg tablet Take 1 Tablet (5 mg) by mouth every 4 hours as needed for Pain, Severe. Max Daily Amount: 30 mg 30 Tablet 0 atorvastatin (LIPITOR) 40 mg tablet Take 1 [...] st Contact Info) Description 2024 11:00 AM COFFERDAM CONSTRUCTION SUPERVISOR Appointment [facility] S [address] [place] [address] 07/21/2024 9:45 AM COFFERDAM CONSTRUCTION SUPERVISOR Appointment [facility] Finishing Area Supervisor [address] [place] [address] Kiel Vasquez MD [address] [facility] 2014 [place] [address] 07/21/2024 9:53 AM COFFERDAM CONSTRUCTION SUPERVISOR Hospital Encounter [facility] Finishing Area Supervisor [address] [place] [address] Kiel Vasquez MD [facility] S [facility] 2014 [place] [address] Paroxysmal A-fib 07/21/2024 9:53 AM COFFERDAM CONSTRUCTION SUPERVISOR - 07/21/2024 11:46 AM COFFERDAM CONSTRUCTION SUPERVISOR Surgery [facility] Finishing Area Supervisor [address] [place] [address] Kiel Vasquez MD [address] [facility] 2014 [place] [address] Left atrial appendage closure percutaneous 07/28/2024 8:30 AM COFFERDAM CONSTRUCTION SUPERVISOR [facility] - [place] [address] [place] [phone] Nahid Hickman MD [address] [facility] [address] [place] [phone] 09/09/2024 1:00 PM CDT Office Visit [facility] At [address] [place] [address] Kiel Vasquez MD [facility] [address] [facility] 2014 [place] [address] 12/16/2024 11:00 AM CDT Office Visit [facility] HEART AND VASCULAR EP AT [address] [place] [address] Demetrius Bowling, TRUONG [address] Sanje[address] 2014 [place] [address] 02/05/2025 10:45 AM CDT Telephone Check Up [facility] At [facility] [address] [facility] [address] [place] [address] 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, CAT [address] [place] [address] documented as of this encounter Visit Diagnoses Not on filedocumented in this encounter Care Teams Programming Internship Relationship Specialty Start Date End Date Aliza Bain MD [address] [facility] [place] [address] PCP - General Family Practice 11/22/21 documented as of this encounter
--- OUTSIDE RECORDS SUMMARY | 2024-07-01 00:40 | XMS_ITS | Encounter Summary ---
Author Organization [facility] Address [address] [place] [address] Care Team Providers Care Police Inspector Name Role Phone Aliza Bain MD Primary Care Provider Encounter Details Date Type Department Care Team (Late st Contact Info) Description 10/23/2023 External Device Data STL ABSTRACTION Provider, Abstract [...] and Family Not on file 07/29/2020 Attends [employer] Services Not on file 07/29 Do you [...] st Contact Info) Description 2024 11:00 AM PLAQUE MAKER Appointment [facility] [address] [place] [address] 07/21/2024 9:45 AM PLAQUE MAKER Appointment [facility] Side Trimmer [address] [place] [address] Kiel Vasquez MD [address] [place] [address] 07/21/2024 9:53 AM PLAQUE MAKER Hospital Encounter [facility] Side Trimmer [address] [place] [address] Kiel Vasquez MD [address] [place] [address] [place] [address] Jesse Lackey-shirley 07/21/2024 9:53 AM PLAQUE MAKER - 07/21/2024 11:46 AM PLAQUE MAKER Surgery [facility] Side Trimmer [address] [place] [address] Kiel Vasquez MD [address] [place] [address] 2014 [place] [address] Left atrial appendage closure percutaneous 07/28/2024 8:30 AM PLAQUE MAKER Office Visit [facility] Oncology and Hematology - [place] [address] [facility] 200 [place] [address] Nahid Hickman MD [address] [facility] [address] [place] [address] 09/09/2024 1:00 PM CDT Office Visit [facility] Heart and Vascular At [address] [place] [address] Kiel Vasquez MD [address] [place] [address] 2014 [place] [address] 12/16/2024 11:00 AM CDT Office Visit [facility] HEART AND VASCULAR EP AT [address] [place] [address] Demetrius Bowling DNP [address] [place] [address] 2014 [place] [address] 02/05/2025 10:45 AM CDT Telephone Check Up [facility] Heart and Vascular At [address] [place] [address] 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 FNP [address] [place] [address] documented as of this encounter Visit Diagnoses Not on filedocumented in this encounter Care Teams Police Inspector Relationship Specialty Start Date End Date Aliza Bain MD [address] [place] [phone] PCP - General Family Practice 11/22/21 documented as of this encounter
--- OUTSIDE RECORDS SUMMARY | 2024-07-01 00:40 | XMS_ITS | Encounter Summary ---
Author Organization [facility] Address [address] [place] [address] Care Team Providers Care Applied Behavior Science Specialist Name Role Phone Aliza Bain MD Primary Care Provider Encounter Details Date Type Department Care Team (Late st Contact Info) Description 10/29/2023 Abstract [facility] Cardiovas and Thor Surg at [facility]osp [address] [facility] [id number] [place] [address] Edinson Ferrell MD [address] [facility] [address] [place] [address] Social History Tobacco Use Types [...] any clubs o r organizations such as anglican groups, unions, fraternal or athletic groups, or [...] st Contact Info) Description 2024 11:00 AM CONTRACT RECRUITER Appointment [facility] S [address] [place] [address] 07/21/2024 9:45 AM CONTRACT RECRUITER Appointment [facility] Senior Credit Analyst [address] [place] [address] Kiel Vasquez MD [address] [facility] 2014 [place] [address] 07/21/2024 9:53 AM CONTRACT RECRUITER Hospital Encounter [facility] Senior Credit Analyst [address] [place] [address] Kiel Vasquez MD [address] [facility] 2014 [place] [address] Paroxysmal A-fib 07/21/2024 9:53 AM CONTRACT RECRUITER - 07/21/2024 11:46 AM CONTRACT RECRUITER Surgery [facility] Senior Credit Analyst [place] [address] Kiel Vasquez MD [facility] S [facility] 2014 [place] [address] Left atrial appendage closure percutaneous 07/28/2024 8:30 AM CONTRACT RECRUITER Office Visit [facility] Oncology and Hematology - [place] [address] [facility] 200 [place] [phone] Nahid Hickman MD [address] [facility] [address] [place] [address] 09/09/2024 1:00 PM CDT Office Visit [facility] Heart and Vascular At [address] [place] [address] iKel Vasquez MD [facility] S [facility] 2014 [place] [address] 12/16/2024 11:00 AM CDT Office Visit [facility] HEART AND VASCULAR EP AT [address] [place] [address] Demetrius Bowling DNP [address] [place] [address] 2014 [place] [address] 02/05/2025 10:45 AM CDT Telephone Check Up [facility] Heart and Vascular At [address] [place] [address] 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 FNP [address] [place] [address] documented as of this encounter Visit Diagnoses Not on filedocumented in this encounter Care Teams Applied Behavior Science Specialist Relationship Specialty Start Date End Date Aliza Bain MD [address] [place] [address] PCP - General Family Practice 11/22/21 documented as of this encounter
--- OUTSIDE RECORDS SUMMARY | 2024-07-01 00:40 | XMS_ITS | Encounter Summary ---
Author Organization [facility] Address [address] [place] [address] Care Team Providers Care Field Underwriter Name Role Phone Aliza Bain MD Primary Care Provider Encounter Details Date Type Department Care Team (Late st Contact Info) Description 10/22/2023 8:45 AM CDT Ancillary Procedure [facility] Operating Room [address] [place] [address] Edinson Ferrell MD [address] [facility] [address] [place] [address] Social History Tobacco Use Types [...] and Family Not on file 07/29/2020 Attends Shinto Services Not on file 07/29 Do you belong to any clubs o r organizations such as presybeterian groups, unions, fraternal or athletic groups, or [...] st Contact Info) Description 2024 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 Appointment [facility] [address] [place] [address] 07/21/2024 9:45 AM 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 Appointment [facility] Blender Laborer [address] [place] [address] Kiel Vasquez MD [address] [facility] 2014 [place] [address] 07/21/2024 9:53 AM SCHOOL 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 Hospital Encounter [facility] Blender Laborer [address] [place] [address] Kiel Vasquez MD [address] [facility] 2014 [place] [address] Paroxysmal A-fib 07/21/2024 9:53 AM 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 Oncology and Hematology - [place] [address] [facility] 200 [place] [address] Nahid Hickman MD [address] [facility] [address] [place] [address] 09/09/2024 1:00 PM CDT Office Visit [facility] Heart and Vascular At [address] [place] [address] Kiel Vasquez MD [facility] S [facility] 2014 [place] [address] 12/16/2024 11:00 AM CDT Office Visit [facility] HEART AND VASCULAR EP AT [address] [place] [address] Demetrius Bowling DNP [address] [place] [address] 2014 [place] [address] 02/05/2025 10:45 AM CDT Telephone Check Up [facility] Heart and Vascular At [address] [place] [address] 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 FNP [facility] S [facility] [place] [address] documented as of this encounter Procedures Procedure Name Priority Date/Time Associated Diagnosis Comments CVOR TRANSESOPHAGEAL STUDY Routine 10/22/2023 8:40 AM CDT documented in this encounter Results * CVOR TRANSESOPHAGEAL STUDY (10/22/2023 8:40 AM CDT) Narrative 10/22/2023 8:40 AM CDT Order Auto Finalized. Please see associated Operative Report/Progress Note/Procedure Note from the same date. Edinson Ferrell MD ECHO ORDERABLES documented in this encounter Visit Diagnoses Not on filedocumented in this encounter Care Teams Field Underwriter Relationship Specialty Start Date End Date Aliza Bain MD [address] [place] [address] PCP - General Family Practice 11/22/21 documented as of this encounter
--- OUTSIDE RECORDS SUMMARY | 2024-07-01 00:40 | XMS_ITS | Encounter Summary ---
Author Organization [facility] Address [address] [place] [address] Care Team Providers Care Two Way Radio Technician Name Role Phone Aliza Bain MD Primary Care Provider Reason for Referral * Eval and Treat (Routine) - Closed Specialty Diagnoses / Procedures Referred By Meghana vigil Referred To Contact Cardiac Rehabilitation Diagnoses S/P CABG (coronary artery bypass graft) Sarbjit Brooks MD [address] [facility] [address] [place] [address] Referral ID Status Reason Start Date Expiration Date Visits Re quested Visits Authorized [id number] Closed 10/25/2023 10/25/2024 36 36 Reason for Visit * Auth/Cert (Routine) Specialty Diagnoses / Procedures Referred By Meghana vigil Referred To Contact Cardiology Procedures NE CATH PLMT L HRT & ARTS W/NJX & ANGIO IMG S&I Left heart cath Sarbjit Brooks MD [address] [facility] [address] [place] [address] [facility] Product Inspection Supervisor [address] [place] [address] Referral ID Status Reason Start Date Expiration Date Visits Re quested Visits Authorized [id number] 1 1 Encounter Details Date Type Department Care Team (Latest Contact Info) Description 10/19/2023 9:50 AM CDT - 10/30/2023 5:29 PM CDT Hospital Encounter [facility] [address] [place] [address] Sarbjit Brooks MD [address] [facility] [address] [place] [address] Dennis Krueger MD [address] [place] [address] Olga Sandhu DO [address] [facility] [address] [place] [address] Edinson Ferrell MD [address] [facility] [address] [place] [address] Coronary artery disease Discharge Disposition: Custodial Fac(SNF) with Medicare Certification in Anticipation of Skilled Care Social History Tobacco Use Types Packs/Day [...] and Family Not on file 07/29/2020 Attends [employer] Not on file 07/29 Do you [...] Sign Reading Time Taken Comments Blood Pressure 105/54 10/30/2023 12:09 PM CDT Pulse 62 10/30/2023 12:09 PM CDT Temperature 36.7 ??C (98.1 ??F) 10/30/2023 12:09 PM C DT Respiratory Rate 30 10/30/2023 12:09 PM CDT Oxygen Saturation 96% 10/30/2023 12:09 PM CDT Inhaled Oxygen Concentration - - Weight 60 kg (132 lb 3.2 oz) 10/30/2023 5:00 AM CDT Height 160 cm (5' 3 ) 10/19/2023 10:07 AM CDT Body Mass Index 23.42 10/19/2023 10:07 AM CDT documented in this encounter Discharge Summaries * Arash Watson PA - 10/30/2023 2:59 PM CDT Images from the original note were not included. CTS Discharge Summary Zee Martinez [id number] PRIMARY CARE PHYSICIAN: Aliza Bain MD Admission Date: 10/19/2023 Discharge Date: 09/30/2023 Primary Diagnosis: Active Hospital Problems Diagnosis Coronary artery disease Mixed hyperlipidemia Benign hypertension Atrial fibrillation Non-small cell cancer of right lung Resolved Hospital Problems No resolved problems to display. Secondary Diagnosis: Past Medical History: Diagnosis Date Arthritis Dyspnea [...] ARTERY performed by Edinson Ferrell MD at [facility] OR HYSTERECTOMY HX SPLENECTOMY HX THORACOTOMY Right 08/31/2020 THORACOTOMY performed by Edinson Ferrell MD at [facility] OR HX TONSILLECTOMY HX TRIGGER FINGER REPAIR NE ECHO TRANSESOPHAG MONTR CARDIAC PUMP FUNCTJ N/A 10/22/2023 TRANSESOPHAGEAL ECHOCARDIOGRAM performed by Shin Rosenbaum DO at [facility] OR NE INCISION DEEP OPENING BONE CORTEX THORAX N/A 10/22/2023 STERNOTOMY performed by Edinson Ferrell MD at [facility] OR NE NDSC SURG W/VIDEO-ASSISTED HARVEST VEIN CABG Left 10/22/2023 VEIN HARVEST ENDOSCOPIC performed by Edinson Ferrell MD at [facility] OR NE RMVL LUNG OTHER THAN PNEUMONECTOMY 1 LOBE LOBECT Right 08/31/2020 LUNG LOBECTOMY performed by Edinson Ferrell MD at [facility] OR Procedures: Procedure(s) and Anesthesia Type: Panel 1: * CORONARY ARTERY BYPASS GRAFT X3 OFF PUMP WITH LEFT INTERNAL MAMMARY ARTERY - General * STERNOTOMY - General * VEIN HARVEST ENDOSCOPIC - General Panel 2: * TRANSESOPHAGEAL ECHOCARDIOGRAM - General Detailed Operative Procedure: On 10/22/2023, Edinson Ferrell MD Physician Specialty: Thoracic Surgery Operative Report Signed Date of Service: 10/25/2023 4:05 PM [place], [place] Patient: ZEE MARTINEZ CSN: [id number] : 1945 Provider: Edinson Ferrell MD OPERATIVE REPORT DATE OF SERVICE: 10/22/2023 PREOPERATIVE DIAGNOSIS: Severe coronary artery disease and left main trunk stenosis, not amenable to PCI. Additional diagnosis, history of lung cancer, status post lobectomy. POSTOPERATIVE DIAGNOSIS: Severe coronary artery disease and left main trunk stenosis, not amenable to PCI. Additional postopdiagnosis, extensive calcification of ascending aorta. PROCEDURE: Epiaortic ultrasound. Endoscopic vein harvesting of the left lower extremity. Off-pump CABG x3. DECAL APPLIER: ERIC Fajardo. ANESTHESIA: General endotracheal with intraoperative ANSELMO. GRAFTS DONE: WESLEY to LAD, reverse saphenous vein graft to the RCA, reverse saphenous vein graft to OM1. FINDINGS: The patient had calcification in the ascending aorta making it higher risk for cannulation and cross-clamping, small targets in the circumflex system and extensive calcification of the coronary artery disease, preserved LV function. INDICATION FOR SURGERY: This was a 78-year-old female who was admitted to the hospital with acute coronary syndrome with finding of severe coronary artery disease including left main and proximal right disease. In view of these findings, the patient was referred for surgical evaluation. The patient was seen and evaluated.We have done a lobectomy on the patient previously with complete resection . operation, risks, benefits, complications, recuperation period, alternatives were all explained. Questions were answered. Possible complications were explained including, but not limited to infection, bleeding, need for transfusion, reexploration, FL, CVA, renal and pulmonary GI complications, vascular problem, and . The patient agreed to proceed. DESCRIPTION OF PROCEDURE: After preoperative preparation, the patient was brought to the operating room, underwent general anesthesia with endotracheal intubation and prepped and draped in the usual standard fashion. Using endoscopic technique, left thigh greater saphenous vein was harvested. Median sternotomy was performed. Left internal mammary artery was harvested and divided. Pericardium was opened. Upon evaluation ofthe aorta, we palpated posterior anterior plaque in the upper ascending aorta as well as the mid ascending aorta. Intraoperative epiaortic ultrasound was performed. Pericardium was opened and filled with sterile saline and using a sterile epiaortic ultrasound probe which was placed in a sterile-saline instilled bag, ascending aorta was scanned from the aortic root arch. Significant calcification in the posterior wall of the aorta as well as the upper ascending aorta was noted. I felt that with that the patient has a high risk of perioperative CVA with cross-clamping. Cannulation of the aorta a lso would be challenging risk of disruption of the plaque. Therefore, we decided to proceed with off pump revascularization. The proximal anastomoses were completed with epiaortic ultrasound probe with a lower ascending aorta which was free of calcification. Subsequently, the patient was half dose heparinized and we utilized Quick[employer] Healthtronic stabilizing system to approach the vessel. The circumflex was approached first. Using Octopus and Urchin stabilizer, the OM1 was exposed with a bifurcating lesionwith small branches. We picked the largest 1 of the OM 1 branch and controlled it proximally, arteriotomy was performed. Vein to OM anastomosis was completed with some EKG changes which resolved at the occlusion of the vessel. After completion of the anastomosis, the patient was given to the RCA, mid RCA was carefully dissected, mid to distal RCA exposed, proximally controlled with silastic vessel loop. Arteriotomy was performed. Shunt was inserted because of the EKG changes and occlusion of this vessel, good resolution of EKG changes. Vein to RCA anastomosis was completed. After completion of the distal anastomosis of the RCA using heartstring device, the OM and RCA proximals were completed without any difficulty. Finally, attention was given to the LAD. Mid-LAD was dissected proximally controlled and opened. Again, we noted EKG changes during this anastomosis. However, it was self-limiting and we were able to complete our WESLEY to LAD anastomosis and upon opening the WESLEY prior to opening the [place] vessel, the EKG changes resolved, confirming our good distal flow. After removal ofthe silastic vessel loop and tacking the mammary pedicle, checking all the proximals and distals for good hemostasis. Two mediastinal Sammy drains; one left pleural Sammy drain was inserted. The patient was weaned off the cardiopulmonary bypass without any difficulty with isoelectric EKG, and afterirrigation and closure of the sternotomy in the standard fashion, the patient was transferred to intensive care unit in stable condition. Edinson Ferrell MD MMODL D: [id number] V: [id number] CC Page 1 of 2 Last signed by: Edinson Ferrell MD at 10/30/2023 12:46 PM Revision History Surgeon: Dr. Edinson Fotouhi Consults: none Vitals: Vitals: 10/30/23 0400 10/30/23 0500 10/30/23 0844 10/30/23 1209 BP: 119/46 (!) 112/37 105/54 BP Location: Right arm Right arm Right arm Patient Position (BP): Supine Sitting Sitting Pulse: 65 (!) 58 62 Resp: 18 21 30 Temp: 98.6 ??F (37 ??C) 98.1 ??F (36.7 ??C) 98.1 ??F (36.7 ??C) TempSrc: Oral Oral Oral SpO2: 94% 93% 96% Weight: 60 kg (132 lb 3.2 oz) Height: Weight: Weight: 60 kg (132 lb 3.2 oz) (10/30/23 0500) Allergies: Allergies Allergen Reactions Penicillins Hives Tolerates Ancef Laboratory: BMP: Recent Labs 10/29/23 0154 NA 136 K 4.2 CL 102 CO2 24 BUN 22 CREAT 1.03* GLUCOSE 117* estimated creatinine clearance is 36.6 mL/min (A) (by C-G formula based on SCr of 1.03 mg/dL (H)). LFTs:No results for input(s): ALKPHOS , ALT , AST , BILITOTAL , ALBUMIN in the last 72 hours. CBC: Recent Labs 10/29/23 0154 WBC 14.5* HGB 9.4* HCT 28.6* PLT 245 MCV 90.8 Coagulation: No results for input(s): PT , INR , APTT in the last 72 hours. Chest X-ray: Results for orders placed or performed during the hospital encounter of 10/19/23 XR CHEST PA AND LATERAL 2 VW Narrative PA AND LATERAL VIEWS OF THE CHEST DATE: 10/20/2023 7:38 AM HISTORY: Postoperative. COMPARISON: 06/30/2021. FINDINGS: Volume loss on the right, with elevation and slight tenting of the right hemidiaphragm redemonstrated. There is stable blunting of the right costophrenic angle which may represent a small effusion versus pleural thickening. There is no focal consolidation or pneumothorax. The cardiomediastinal silhouette is within normal limits. Impression IMPRESSION: Stable chest radiograph. DICTATION LOCATION: [address] XR CHEST PA OR AP 1 VW Narrative XR CHEST PA OR AP 1 VW DATE: 10/25/2023 6:23 AM HISTORY: Post-Operative, POD#3. Pre-op testing; Chronic diastolic congestive heart failure. COMPARISON: October 23, 2023. FINDINGS: Heart and mediastinum are unchanged. Heart is normal in size. Postoperative changes are seen status post median sternotomy. There are calcifications of the thoracic aorta. The mediastinum is otherwise unremarkable. Mediastinal drains have been removed. Left-sided chest tube has been removed. Right IJ catheter remains in place. There is no pneumothorax. There are small bilateral pleural effusions and there is bilateral basilar atelectasis. Impression : Removal of mediastinal drains and left-sided chest tube. No pneumothorax. New small bilateral pleural effusions. There is also new bilateral basilar atelectasis. DICTATION LOCATION: Location 2 - [facility] Discharge Medications: Medication List START taking these medications amiodarone 200 mg tablet Commonly known as: CORDARONE Take 1 Tablet (200 mg) by mouth every 8 hours for 5 days. Signed by: Dr. Gilma Ferrell Quantity: 15 Tablet Refills: 0 atorvastatin 40 mg tablet Commonly known as: LIPITOR Take 1 Tablet (40 mg) by mouth daily at bedtime. Signed by: Dr. Gilma Ferrell Quantity: 30 Tablet Refills: 0 metoprolol tartrate 25 mg tablet Commonly known as: LOPRESSOR Take 1 Tablet (25 mg) by mouth 2 times daily. Signed by: Dr. Gilma Ferrell Quantity: 60 Tablet Refills: 0 oxyCODONE 5 mg tablet Commonly known as: ROXICODONE Take 1 Tablet (5 mg) by mouth every 4 hours as needed for Pain, Severe. Max Daily Amount: 30 mg Signed by: Dr. Gilma Ferrell Quantity: 30 Tablet Refills: 0 CONTINUE taking these medications acetaminophen-codeine 300-30 mg tablet Commonly known as: TYLENOL #3 Take 1 Tablet by mouth every 6 hours as needed. STOPPED Refills: 0 apixaban 5 mg tablet Commonly known as: Eliquis Take 1 Tablet (5 mg) by mouth 2 times daily. Signed by: Dr. Ousmane Brooks Quantity: 180 Tablet Refills: 3 aspirin 81 mg Tablet, Delayed Release (E.C.) Commonly known as: ECOTRIN EC Take 81 mg by mouth daily. Refills: 0 calcium-cholecalciferol 500 mg-5 mcg (200 unit) tablet Commonly known as: OS-SUSAN 500+D Take 1 Tablet by mouth daily. Refills: 0 cyanocobalamin 100 mcg tablet Commonly known as: VITAMIN B-12 Take 100 mcg by mouth daily. Refills: 0 magnesium oxide 250 mg magnesium Tablet Take by mouth. Refills: 0 olmesartan 40 mg tablet Commonly known as: BENICAR Take 40 mg by mouth daily. Medication bottle is Olmesartan Medoxomil 40 MG tab1 tab by mouth daily Refills: 0 pantoprazole 20 mg Tablet, Delayed Release (E.C.) Commonly known as: PROTONIX Take 20 mg by mouth 2 times daily. Refills: 0 pyRIDostigmine 60 mg tablet Commonly known as: MESTINON Take 60 mg by mouth 3 times daily. Refills: 0 VITAMIN D3 ORAL Take by mouth. Refills: 0 STOP taking these medications amLODIPine 10 mg tablet Commonly known as: NORVASC hydroCHLOROthiazide 25 mg tablet Where to Get Your Medications These medications were sent to [facility] [address] [address] amiodarone 200 mg tablet atorvastatin 40 mg tablet metoprolol tartrate 25 mg tablet EKG: normal EKG, normal sinus rhythm, unchanged from previous tracings. Brief History and Hospital Course: HPI: This [...] to infection, bleeding, need for transfusion, reexploration, FL, CVA, renal and pulmonary GI complications, vascular [...] On post operative day number 2, the Sammy drain and temporary pacing wires were removed without incident. She progressed well without issue. She had recurrent afib and was started on amio gtt. This was discontinued before discharge. On post operative day 8, the patient was educated and prepared for discharge to post-acute care facility Nutritional status and in-house recommendations: Current Diet and/or Nutritional Supplementation ordered: DIET CARDIAC Low Cholesterol (AHA),; 2GM Sodium (Low), Day of Discharge Assessment and Plan POD #8 - S/P opCABG x 3 with WESLEY to LAD, SVG to OM, SVG to RCA harvest, EF 65% Cardiac: Normal heart function Rhythm:SR BP: Stable Medications -- Continue Amiodarone 200 mg TID for afib prophylaxis, Aspirin 81mg, Lipitor 40mg daily, Eliquis 5mg BID. Increase olmesartan to 40mg QD, Lopressor 25mg BID Medications -- Hold [employer] TE[employer]ER Norvasc, HCTZ Pulm: on room air, Incentive spirometry, and ambulate CXR: not obtained Neuro: Alert and oriented Renal: Baseline CR 0.94, GFR 60, Acute Kidney Injury Cr on 10/25 was improving at 1.03. Plan: BMP Nadya Electrolytes: Na 136, K 4.2 : [place] removed and voiding Endocrine: No h/o DM, D/C SSI and ACHS Heme: H/o anemia. Pre-op H/H 04/17, Today's H/H 9.4/28.6 reflecting 3% drop from baseline. [id number] PRBC on 10/23. H/H is up , Platelets up trending. 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 Body mass index is 23.74 kg/m??.: Patient is Normal weight with BMI 18.5-24.9 Former Tobacco Abuse: Performed cessation education Prophylaxis: Eliquis and PPI. Perform vaccine screen and administered required vaccines Nutrition: Advance diet as tolerated DIET CARDIAC Low Cholesterol (AHA),; 2GM Sodium (Low), Consult Cardiac rehab and PT/OT Shower/Bathe patient daily Labs/Radiology: lab holiday Discharge Disposition: following for post acute as her son is unable to be with her 24 hours. Patient is medically ready for discharge Pertinent Medications: Beta Farideh: lopressor 25 mg bid ACEi/ARB: olmesartan 40 mg qd ASA: 81 mg qd Statin: lipitor 40 mg qhs Lasix: none Coumadin: none Pending Labs or Exams: none Disposition: The patient is being discharged to post acute in stable condition. She has a follow up appointment with Dr. Ferrell on 11/20 at 1000 and will need a CXR 15 minutes prior to the appointment. The patientalso has an appointment with Dimension Quarry Supervisor, Louise Marie, on 11/21 @ 1000 Written and verbal instructions were given and all questions were answered. Discharge Vitals and Weight Vitals: 10/30/23 0400 10/30/23 0500 10/30/23 0844 10/30/23 1209 BP: 119/46 (!) 112/37 105/54 BP Location: Right arm Right arm Right arm Patient Position (BP): Supine Sitting Sitting Pulse: 65 (!) 58 62 Resp: 18 21 30 Temp: 98.6 ??F (37 ??C) 98.1 ??F (36.7 ??C) 98.1 ??F (36.7 ??C) TempSrc: Oral Oral Oral SpO2: 94% 93% 96% Weight: 60 kg (132 lb 3.2 oz) Height: Weight: 60 kg (132 lb 3.2 oz) (10/30/23 0500) documented in this encounter Discharge Instructions * Discharge Instructions* Amy Recinos RN - 10/22/2023 1:06 PM CDT Images from the original note were not included. [facility] [address] [facility] [id number] [place] [address] Dr. Yulia Ferrell Office # [phone] (nurse line ext. [phone]) Please call the office from 8:30-4:30 M-F for questions/concerns. After hours, our office number is forwarded to the exchange. SURGERY: Coronary Artery Bypass Grafting on 10/22/[address] Ferrell. DISCHARGE INSTRUCTIONS AND FOLLOW-UP APPOINTMENT Activity: Try to walk 4-5 times each day. Start by walking a little more than you did the day before and increase the amount you walk as you tolerate. Walking boosts blood flow and helps prevent pneumonia and constipation. Hold a pillow over your incisions when you cough or take deep breaths. This will support your sternum. If you wear a bra, we encourage you to continue wearing a bra after surgery. Breast support can reduce pain, wound breakdown, and infection. You may go up and down stairs. Recommend to start this once a day, then increase as you tolerate it. Rest when you feel tired. Getting enough sleep will help you recover. Try to sleep on your back while your chest heals. You can enjoy social activities, like going to the movies, jain, and restaurants. Sternal Precautions: Do not drive or return to work until cleared by your surgeon. Do not lift more than 10 lbs (about a gallon of milk). Do not reach your arms above your head or behind your back. However, if you keep your elbows close to your body, you can still wash your hair and shave. Provided you keep your arm close to your body,you may reach behind you with one arm to care for yourself. Avoid pushing and pulling with your arms. Avoid repetitive xohy-th-uckm or metj-slc-xvnyt arm movements. Getting out of and into a bed or chair: Using your arms to get out of and into a bed, chair, or couch can put pressure on your healing sternum. These instructions show you how to do these things safely. Getting out of bed: Lie on your side, facing the direction you want to get out of the bed. Bend both knees. Use your elbow to help raise your upper body as you lower your legs to the floor. Keep your elbow as close to your side as you can. Scoot to the edge of the bed and position your feet under your buttocks. Rest a moment, then stand up. Getting into bed: Stand with the back of your legs touching the bed. Sit down on the edge of the bed. Scoot your buttocks back onto the bed. Try not to use your arms. Use your elbow to help you lie down on your side as you raise your legs up to the bed. Keep your elbow as close to your side as you can. Getting up from a chair (or couch): Scoot forward to the edge of the chair by pushing your shoulders against the back of the chair. Bring your feet in toward the chair until your toes are right under your knees. Lean forward until your nose is over your toes, then use your legs to stand up. If you need to, rock back and forth once or twice to help you stand up. Don't push or pull with your arms, but you can use them for balance. Sitting down on a chair (or couch): Stand with the back of your legs touching the chair. Sit down without pushing or pulling with your arms or hands. You can use your arms and hands for balance. Use your legs to push yourself back into a comfortable position on the chair. DIET: Heart Healthy (low sodium, low cholesterol, low saturated fat) SPECIAL INSTRUCTIONS: (i.e. care of wounds, dressing, special appliance needs, etc) Shower daily: wash over incisions with soap and water; do not use any ointment or creams on incisions Notify office of any redness around incision sites or any drainage from your incision(s). Notify our office for temperature over 101 F or any change in condition Chest tube sites may drain; place a band-aid or gauze dressing over the sites as needed Avoid sitting for long periods of time, elevate your legs when you are sitting. Constipation is common. It is recommended that you take a stool softener such as Colace. If constipation persists despite taking a stool softener, you may try Milk of Magnesia, senna or a Dulcolax suppository. Continue deep breathing exercises by taking 10 slow, deep breaths in and out every 2-3 hours. If you are currently smoking, we encourage you to stop. Refer to the smoking cessation material you received from Cardiac Rehab or contact the [employer] [place] [employer] for further informationon smoking cessation. Daily weight: If you should gain more than 3 lbs overnight call our office. Please weigh in the morning, after you've used the bathroom for the first time, wearing about the same amount of clothing. Hold your Blood Pressure medication if your heart rate is below 60 or if your systolic blood pressure (top number) is less than 100. Notify our office if this happens. If present, please remove steri-strips after 7 days. Avoid repetitive work that requires arms over your head because it increases work load of your heart. Avoid unnecessary lifting, pushing, pulling, straining, mowing or shoveling that cause you to hold your breath. You might be prescribed one of the common medications after Heart Surgery: It is important that you take all medications as you have been instructed. Some of these drugs improve survival and some help to prevent or treat chest pain. Aspirin is a medication that decreases the activity of platelets (cells in the blood that cause clotting). This is given to help prevent the formation of blood clots that can block either the graft vessel or other arteries. Most common side effects: indigestion, nausea or vomiting, easy bruising. Beta blockers are medications that slow the heart rate, lower blood pressure, and decrease the heart's demand for oxygen. Examples of beta-blockers include: metoprolol (Toprol XL or Lopressor), carvedilol (Coreg), nebivolol (Bystolic). Most common side effects include: low heart rate, low blood pressure, dizziness, headache, tiredness, cold hands and feet. Use caution when standing. Get up slowly. JENNIFER inhibitors and ARBs are medications often used to treat high blood pressure. Examples of JENNIFER inhibitors: enalapril (Vasotec), lisinopril (Prinivil/Zestril), ramipril (Altace), benazepril (Lotensin). Examples of ARBs: losartan (Hyzaar, Cozaar), valsartan (Diovan), telmisartan (Micardis), olmesartan(Benicar), irbesartan (Avapro). Most common side effects include: low blood pressure, dizziness, headache, dry cough, and abnormal taste. Lipid lowering therapy - Almost all patients are given a medication to lower lipids after CABG. Cholesterol lowering can be beneficial both before and after CABG because it can stop the progression of plaque buildup in your arteries and graft vessels. Statins are the most common medications used tolower cholesterol levels. Other drugs may be used as well. Examples of statins: atorvastatin (Lipitor), lovastatin (Mevacor), pravastatin (Pravachol), rosuvastatin (Crestor), simvastatin (Zocor). Examples of non-statins: cholestyramine (Questran), ezetimibe (Zetia). Most common side effects include: headache, diarrhea, abdominal pain, flu-like symptoms. Contact your health care provider if you experience: Severe muscle pain or weakness. Pain relievers may be a part of your early rehab process, allowing you to breathe more deeply and move more comfortably thus loosing your muscles and reducing soreness and pain. Most often, a narcotic pain reliever such as hydrocodone (Elizabeth) is prescribed for two to four weeks after hospital discha rge. Most common side effects: constipation, dry mouth, itching, drowsiness or tired feeling, headache, dizziness and occasionally hallucinations. Do not drink alcohol while taking these medications. These medications may impair your thinking or reactions. Avoid driving while taking these medications; associated dizziness or drowsiness can cause falls or other accidents. Taking these medications with a sleeping pill, other pain medicine, or medicine for anxiety, depression or seizures can cause dangerous interactions, unresponsiveness or even from slower breathing. Check with your doctor before combining any of these medicines. FOLLOW-UP APPOINTMENT: November 20 at 10:[address] Ferrell in the office. Please contactour office if you would like a Video Visit. Please obtain a chest x-ray within 3 days of your appointment time @ any [facility] facility with Radiology. The chest x-ray has been ordered, and you do not need an appointment. Follow-up with your [employer] Supervisor's Nurse Practitioner, Louise Marie, on November 21 at 10:00 AM. Chronic conditions will be addressed by Aliza Bain MD. Please follow-up with Aliza Bain MD in the next 4 weeks. We encourage you to enroll in: at [email or web address]. It is a valuable tool to manage your healthcare needs. Activation code not generated Current LiveTop Status: Active documented in this encounter Medications at Time of Discharge Medication Sig Dispensed Refills Start Date End Date pyRIDostigmine (MESTINON) 60 mg tablet Take 60 [...] 40 MG tab1 tab by mouth daily amiodarone (CORDARONE) 200 mg tablet Take 1 Tablet (200 mg) by mouth every 8 hours for 5 days. 15 Tablet 10/30/2023 11/04/2023 metoprolol tartrate (LOPRESSOR) 25 mg tablet Take 1 Tablet (25 mg) by mouth 2 times daily. 60 Tablet 10/30/2023 11/16/2023 atorvastatin (LIPITOR) 40 mg tablet Take 1 Tablet (40 mg) by mouth daily at bedtime. 30 Tablet 10/30/2023 11/22/2023 documented as of this encounter Progress Notes * Sarah Ballard MSW - 10/30/2023 3:12 PM CDT 10/30/23 1500 Discharge Planning Plan Discharge To longterm facility Patient/Family Communications Confirmed Discharge Plan Discharge Plan Agreed Upon Patient Resource List Given Care facilities Resource List Given To Patient Information Given Concerning Criteria for (skilled) nursing facility Follow-up on Referrals Sent Yes Has discharge transport been arranged? Yes Transportation Provider [facility] Transportation Provider Final Discharge Arrangements Final Discharge Disposition SNF Care Facility Name [facility] Facility Contact Name lizet Rivera [facility] Services Arranged For Discharge Transportation assistance;longterm facility (SNF) Date Of Pick-Up 10/30/23 Time Of Pick-Up 1515 Copy of this transfer form will be sent with patient along with: Demographic sheet;Pertinent Medical Records All discharge arrangements completed. Follow up IM letter completed. Patient Choice letter completed. Transportation upon Discharge form completed. Patient requires supervision for transport: YES Options for safe transport discussed with care team and presented to patient/ family. Son contacted and aware of discharge. If patient going LTAC, REHAB, SNF, INTERMEDIATE CARE FACILITY: Attending MD is Marilynn Gabriel ,who can be reached at [phone]. AUBREY Grullon Social Work I-IPCM AUBREY Grullon, 10/30/2023 3:12 PM * Serenity Eugene FNP - 10/30/2023 9:05 AM CDT CTS SPCU Note POD #8 - S/P opCABG x 3 with WESLEY to LAD, SVG to OM, SVG to RCA harvest, EF 65% Subjective: Patient remains in NSR Hemodynamically stable overnight Awaiting authorization Objective: Vitals: BP (!) 145/56 (BP Location: Right arm, Patient Position (BP): Supine) Pulse 73 Temp 98.8 ??F (37.1 ??C) Resp 21 Ht 5' 3 (1.6 m) Wt 60.8 kg (134 lb) SpO2 96% BMI 23.74 kg/m?? Oxygen Therapy O2 Device: room air (10/26/23 0700) Oxygen Therapy Flow (L/min): 2 (10/23/23 0500) Weight: Weight: 60.8 kg (134 lb) (10/19/23 1007) I&O: Intake/Output Summary (Last 24 hours) at 10/26/2023 0917 Last data filed at 10/26/2023 0700 Gross per 24 hour Intake 300 ml Output 1153 ml Net -853 ml EKG: normal sinus rhythm Physical Exam: Heart: normal rate and regular rhythm Lungs: clear to auscultation bilaterally, normal respiratory effort Extremities: extremities normal, atraumatic, no cyanosis or edema, moves all extremities equally Abd: Soft, non-tender. Bowel sounds +, no flatus Wounds: sternal wound: Healing Leg: healing Neuro exam: alert, oriented x3 Data Review: BMP: Recent Labs 10/23/23171410/24/2345210/25/23 04010/26/23 0504 NA 135* 136 135* 135* K 4.8 4.2 3.7 3.9 CL 103 102 101 101 CO2 * 24 24 23 BUN 27* 34* 34* 31* CREAT 1.29* 1.48* 1.14* 0.96* GLUCOSE 162* 119* 105* 100* MG 2.4 -- -- -- estimated creatinine clearance is 37.7 mL/min (A) (by C-G formula based on SCr of 0.96 mg/dL (H)). LFTs: No results for input(s): ALKPHOS , ALT , AST , BILITOTAL , ALBUMIN in the last 72 hours. CBC: Recent Labs 10/23/23171410/24/2345210/25/2340810/26/23 0504 WBC 31.0* 28.7* 24.8* 16.0* HGB 9.5* 8.7* 10.5* 9.9* HCT 29.0* 26.6* 31.3* 29.8* PLT 173 148 164 186 MCV 93.5 92.0 89.9 91.1 Coagulation: No results for input(s): PT , INR , APTT in the last 72 hours. Active Hospital Problems Diagnosis Coronary artery disease Mixed hyperlipidemia Benign hypertension Atrial fibrillation Non-small cell cancer of right lung Resolved Hospital Problems No resolved problems to display. Social History Tobacco Use Smoking Status Former Current packs/day: 0.00 Average packs/day: 0.5 packs/day for 40.0 years (20.0 ttl pk-yrs) Types: Cigarettes Start date: 08/19/1959 Quit date: 08/19/1999 Years since quittin.2 Smokeless Tobacco Never Social History Substance and Sexual Activity Alcohol Use Yes Comment: occasional Assessment/Plan POD #8 - S/P opCABG x 3 with WESLEY to LAD, SVG to OM, SVG to RCA harvest, EF 65% Cardiac: Normal heart function Rhythm:SR BP: Stable Medications -- Continue Amiodarone 200 mg TID for afib prophylaxis, Aspirin 81mg, Lipitor 40mg daily, Eliquis 5mg BID. Increase olmesartan to 40mg QD, Lopressor 25mg BID Medications -- Hold [employer] Norvasc, HCTZ Pulm: on room air, Incentive spirometry, and ambulate CXR: not obtained Neuro: Alert and oriented Renal: Baseline CR 0.94, GFR 60, Acute Kidney Injury Cr on 10/25 was improving at 1.03. Plan: BMP Nadya Electrolytes: Na 136, K 4.2 : Lockwood removed and voiding Endocrine: No h/o DM, D/C SSI and ACHS Heme: H/o anemia. Pre-op H/H 04/17, Today's H/H 9.4/28.6 reflecting 3% drop from baseline. [id number] PRBC on 10/23. H/H is up , Platelets up trending. 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 Body mass index is 23.74 kg/m??.: Patient is Normal weight with BMI 18.5-24.9 Former Tobacco Abuse: Performed cessation education Prophylaxis: Eliquis and PPI. Perform vaccine screen and administered required vaccines Nutrition: Advance diet as tolerated DIET CARDIAC Low Cholesterol (AHA),; 2GM Sodium (Low), Consult Cardiac rehab and PT/OT Shower/Bathe patient daily Labs/Radiology: lab holiday Discharge Disposition: following for post acute as her son is unable to be with her 24 hours. Patient is medically ready for discharge * Karma Palm RN - 10/29/2023 6:47 PM CDT SPCU Shift Note Significant events: Pt up in chair throughout shift. Walked hallways x2 w/ therapy. Pain managed w/current regimen. VSS. Awaiting authorization. Disposition Transfer or discharge plan: discharge home w/ HH or Rehab? * Serenity Eugene FNP - 10/29/2023 10:14 AM CDT CTS SPCU Note POD #7 - S/P opCABG x 3 with WESLEY to LAD, SVG to OM, SVG to RCA harvest, EF 65% Subjective: Patient remains in NSR off amiodarone Hemodynamically stable overnight Awaiting facility Objective: Vitals: BP (!) 145/56 (BP Location: Right arm, Patient Position (BP): Supine) Pulse 73 Temp 98.8 ??F (37.1 ??C) Resp 21 Ht 5' 3 (1.6 m) Wt 60.8 kg (134 lb) SpO2 96% BMI 23.74 kg/m?? Oxygen Therapy O2 Device: room air (10/26/23 0700) Oxygen Therapy Flow (L/min): 2 (10/23/23 0500) Weight: Weight: 60.8 kg (134 lb) (10/19/23 1007) I&O: Intake/Output Summary (Last 24 hours) at 10/26/2023 0917 Last data filed at 10/26/2023 0700 Gross per 24 hour Intake 300 ml Output 1153 ml Net -853 ml EKG: normal sinus rhythm Physical Exam: Heart: normal rate and regular rhythm Lungs: clear to auscultation bilaterally, normal respiratory effort Extremities: extremities normal, atraumatic, no cyanosis or edema, moves all extremities equally Abd: Soft, non-tender. Bowel sounds +, no flatus Wounds: sternal wound: Healing Leg: healing Neuro exam: alert, oriented x3 Data Review: BMP: Recent Labs 10/23/23171410/24/233 10/25/23 0409 10/26/23 0504 NA 135* 136 135* 135* K 4.8 4.2 3.7 3.9 CL 103 102 101 101 CO2 21* 24 24 23 BUN 27* 34* 34* 31* CREAT 1.29* 1.48* 1.14* 0.96* GLUCOSE 162* 119* 105* 100* MG 2.4 -- -- -- estimated creatinine clearance is 37.7 mL/min (A) (by C-G formula based on SCr of 0.96 mg/dL (H)). LFTs: No results for input(s): ALKPHOS , ALT , AST , BILITOTAL , ALBUMIN in the last 72 hours. CBC: Recent Labs 10/23/23171410/24/2345210/25/239 10/26/23 0504 WBC 31.0* 28.7* 24.8* 16.0* HGB 9.5* 8.7* 10.5* 9.9* HCT 29.0* 26.6* 31.3* 29.8* PLT 173 148 164 186 MCV 93.5 92.0 89.9 91.1 Coagulation: No results for input(s): PT , INR , APTT in the last 72 hours. Active Hospital Problems Diagnosis Coronary artery disease Mixed hyperlipidemia Benign hypertension Atrial fibrillation Non-small cell cancer of right lung Resolved Hospital Problems No resolved problems to display. Social History Tobacco Use Smoking Status Former Current packs/day: 0.00 Average packs/day: 0.5 packs/day for 40.0 years (20.0 ttl pk-yrs) Types: Cigarettes Start date: 08/19/1959 Quit date: 08/19/1999 Years since quittin.2 Smokeless Tobacco Never Social History Substance and Sexual Activity Alcohol Use Yes Comment: occasional Assessment/Plan POD #7 - S/P opCABG x 3 with WESLEY to LAD, SVG to OM, SVG to RCA harvest, EF 65% Cardiac: Normal heart function Rhythm:SR BP: Stable Medications -- Continue Amiodarone 200 mg TID for afib prophylaxis, Aspirin 81mg, Lipitor 80mg daily, Eliquis 5mg BID. Increase olmesartan to 40mg QD, Lopressor 25mg BID Medications -- Hold [employer] Norvasc, HCTZ Pulm: on room air, Incentive spirometry, and ambulate CXR: not obtained Neuro: Alert and oriented Renal: Baseline CR 0.94, GFR 60, Acute Kidney Injury Cr on 10/25 was improving at 1.03. Plan: BMP Nadya Electrolytes: Na 136, K 4.2 : Lockwood removed and voiding Endocrine: No h/o DM, D/C SSI and ACHS Heme: H/o anemia. Pre-op H/H 04/17, Today's H/H 9.4/28.6 reflecting 3% drop from baseline. [id number] PRBC on 10/23. H/H is up , Platelets up trending. 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 Body mass index is 23.74 kg/m??.: Patient is Normal weight with BMI 18.5-24.9 Former Tobacco Abuse: Performed cessation education Prophylaxis: Eliquis and PPI. Perform vaccine screen and administered required vaccines Nutrition: Advance diet as tolerated DIET CARDIAC Low Cholesterol (AHA),; 2GM Sodium (Low), Consult Cardiac rehab and PT/OT Shower/Bathe patient daily Labs/Radiology: lab holiday Discharge Disposition: following for post acute as her son is unable to be with her 24 hours. Patient is medically ready for discharge * Nicole Mtz RN - 10/28/2023 2:53 PM CDT SPCU Shift Note Significant events ambulated with RN in the sigala (Gait belt). Little to no pain. ACHS. No insulin needed. Family visted throughout shift. Pt had BM Disposition Transfer or discharge plan: discharge to SNF * Nicole Mtz RN - 10/28/2023 10:14 AM CDT Images from the original note were not included. [facility] Adult Therapeutic Orders Protocol [facility] Approved by: [facility] - Medical Executive Committee Approval Date: 06/07/2023 ORDERS ARE ENTERED ???PER PROTOCOL?? Enter the protocol in the patient's electronic health record using smartphrase:.nursingtheraputicordersprotocol For adult inpatients with complaints of minor discomfort Nursing Orders: [id number] Ice Pack/Cold Therapy 20 minutes every 2 hours to affected area. [id number] Warm Compress/Heat to affected area 20 minutes every 8 hours to affected area. Medication Orders: Docusate sodium (COLACE) capsule 100 mg, Oral two times daily for stool softening except for patients with diagnosed or rule-out bowel obstruction. calcium carbonate (TUMS) chewable tablet. 400mg, Oral every 4 hours PRN for heartburn. simethicone (MYLICON) tablet. 160 mg Oral four times daily PRN for gas. Neomycin-Bacitracin Zn-Polymyxin (NEOSPORIN) topical ointment. 1 packet, One Time to affected area.For minor scraps/abrasions. Use cover dressing as needed. Polyvinyl alcohol-povidon(PF) (REFRESH CLASSIC) 1.4-0.6% ophthalmic solution. 1 drop to affected eye every 4 hours PRN for dry eye. Sodium chloride (OCEAN) 0.65% nasal solution. 2 sprays to affected nostril every 15 minutes PRN forcongestion. If symptoms persist or worsen contact provider for further orders * Ashley Haskins PA - 10/28/2023 7:33 AM CDT CTS SPCU Note POD #6 - S/P opCABG x 3 with WESLEY to LAD, SVG to OM, SVG to RCA harvest, EF 65% Subjective: Patient remains in NSR off amiodarone Hemodynamically stable overnight Objective: Vitals: BP (!) 145/56 (BP Location: Right arm, Patient Position (BP): Supine) Pulse 73 Temp 98.8 ??F (37.1 ??C) Resp 21 Ht 5' 3 (1.6 m) Wt 60.8 kg (134 lb) SpO2 96% BMI 23.74 kg/m?? Oxygen Therapy O2 Device: room air (10/26/23 0700) Oxygen Therapy Flow (L/min): 2 (10/23/23 0500) Weight: Weight: 60.8 kg (134 lb) (10/19/23 1007) I&O: Intake/Output Summary (Last 24 hours) at 10/26/2023916 Last data filed at 10/26/2023 0700 Gross per 24 hour Intake 300 ml Output 1153 ml Net -853 ml EKG: normal sinus rhythm Physical Exam: Heart: normal rate and regular rhythm Lungs: clear to auscultation bilaterally, normal respiratory effort Extremities: extremities normal, atraumatic, no cyanosis or edema, moves all extremities equally Abd: Soft, non-tender. Bowel sounds +, no flatus Wounds: sternal wound: Healing Leg: healing Neuro exam: alert, oriented x3 Data Review: BMP: Recent Labs 10/23/23171410/24/2345210/25/2340810/26/23 0504 NA 135* 136 135* 135* K 4.8 4.2 3.7 3.9 CL 103 102 101 101 CO2 21* 24 24 23 BUN 27* 34* 34* 31* CREAT 1.29* 1.48* 1.14* 0.96* GLUCOSE 162* 119* 105* 100* MG 2.4 -- -- -- estimated creatinine clearance is 37.7 mL/min (A) (by C-G formula based on SCr of 0.96 mg/dL (H)). LFTs: No results for input(s): ALKPHOS , ALT , AST , BILITOTAL , ALBUMIN in the last 72 hours. CBC: Recent Labs 10/23/23171410/24/2345210/25/23 0409 10/26/23 0504 WBC 31.0* 28.7* 24.8* 16.0* HGB 9.5* 8.7* 10.5* 9.9* HCT 29.0* 26.6* 31.3* 29.8* PLT 173 148 164 186 MCV 93.5 92.0 89.9 91.1 Coagulation: No results for input(s): PT , INR , APTT in the last 72 hours. Active Hospital Problems Diagnosis Coronary artery disease Mixed hyperlipidemia Benign hypertension Atrial fibrillation Non-small cell cancer of right lung Resolved Hospital Problems No resolved problems to display. Social History Tobacco Use Smoking Status Former Current packs/day: 0.00 Average packs/day: 0.5 packs/day for 40.0 years (20.0 ttl pk-yrs) Types: Cigarettes Start date: 08/19/1959 Quit date: 08/19/1999 Years since quittin.2 Smokeless Tobacco Never Social History Substance and Sexual Activity Alcohol Use Yes Comment: occasional Assessment/Plan POD #6 - S/P opCABG x 3 with WESLEY to LAD, SVG to OM, SVG to RCA harvest, EF 65% Cardiac: Normal heart function Rhythm:SR BP: Stable/HTN Medications -- Continue Amiodarone 200 mg TID for afib prophylaxis, Aspirin 325mg, Lipitor 80mg daily, Eliquis 5mg BID. Increase olmesartan to 40mg QD, Lopressor 25mg BID Medications -- Hold [employer] Norvasc, HCTZ Pulm: Incentive spirometry, and ambulate CXR: not obtained Neuro: Alert and oriented Renal: Baseline CR 0.94, GFR 60, Acute Kidney Injury Cr on 10/25 was improving at 0.96. Plan: BMP Nadya Electrolytes: Not obtained : Keep lockwood for accurate I and O's Endocrine: No h/o DM, Post operative stress hyperglycemia continue variable dose sliding scale Heme: H/o anemia. Pre-op H/H 04/17, Today's H/H 9.9/29.8 reflecting 3% drop from baseline. [id number] PRBC on 10/23. H/H is up , Platelets up trending. Plan: Trending labs with repeat CBC in 48 hours Drains/Wires: removed Lines: D/c CVL Pain Control: Continue oral pain medication, IV narcotics for breakthrough pain, and scheduled tylenol. 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 Body mass index is 23.74 kg/m??.: Patient is Normal weight with BMI 18.5-24.9 Former Tobacco Abuse: Performed cessation education Prophylaxis: Eliquis and PPI. Perform vaccine screen and administered required vaccines Nutrition: Advance diet as tolerated DIET CARDIAC Low Cholesterol (AHA),; 2GM Sodium (Low), Consult Cardiac rehab and PT/OT Shower/Bathe patient daily Labs/Radiology: CBC, BMP in AM SPCU Discharge Disposition: CM following for post acute as her son is unable to be with her 24 hours andshe is still needing 1-2 assist. * Nicole Mtz RN - 10/27/2023 5:07 PM CDT SPCU Shift Note Significant events pt experiencing nausea, SB, feeling weak. VSS, blood glucose normal, afebrile. RN contacted PA. Amiodarone PO on hold, amiodarone drip stopped at noon. Anti nauseas medication given. Pt has eaten very little due to upset stomach. Pt refused pain medication. Disposition Transfer or discharge plan: discharge to SNF * Berny Bender MD - 10/27/2023 7:35 AM CDT CTS CVICU Note POD #5 - S/P opCABG x 3 with WESLEY to LAD, SVG to OM, SVG to RCA harvest, EF 65% Subjective: Pt in NSR this am but back on Amio drip but unable to determine when she went into Afib or the dripwas started Will add Lopressor and stop Amio drip BP stable 140s today. Hemodynamically stable overnight Ultimate d/c to SNiF Objective: Vitals: BP (!) 145/56 (BP Location: Right arm, Patient Position (BP): Supine) Pulse 73 Temp 98.8 ??F (37.1 ??C) Resp 21 Ht 5' 3 (1.6 m) Wt 60.8 kg (134 lb) SpO2 96% BMI 23.74 kg/m?? Oxygen Therapy O2 Device: room air (10/26/23 0700) Oxygen Therapy Flow (L/min): 2 (10/23/23 0500) Weight: Weight: 60.8 kg (134 lb) (10/19/23 1007) Drips: None I&O: Intake/Output Summary (Last 24 hours) at 10/26/2023916 Last data filed at 10/26/2023 07 Gross per 24 hour Intake 300 ml Output 1153 ml Net -853 ml EKG: normal sinus rhythm Physical Exam: Heart: normal rate and regular rhythm Lungs: clear to auscultation bilaterally, normal respiratory effort Extremities: extremities normal, atraumatic, no cyanosis or edema, moves all extremities equally Abd: Soft, non-tender. Bowel sounds +, no flatus Wounds: sternal wound: Healing Leg: healing Neuro exam: alert, oriented x3 Data Review: BMP: Recent Labs 10/23/23171410/24/2345210/25/2340810/26/23 0504 NA 135* 136 135* 135* K 4.8 4.2 3.7 3.9 CL 103 102 101 101 CO2 21* 24 24 23 BUN 27* 34* 34* 31* CREAT 1.29* 1.48* 1.14* 0.96* GLUCOSE 162* 119* 105* 100* MG 2.4 -- -- -- estimated creatinine clearance is 37.7 mL/min (A) (by C-G formula based on SCr of 0.96 mg/dL (H)). LFTs: No results for input(s): ALKPHOS , ALT , AST , BILITOTAL , ALBUMIN in the last 72 hours. CBC: Recent Labs 10/23/23171410/24/2345210/25/2340810/26/23 0504 WBC 31.0* 28.7* 24.8* 16.0* HGB 9.5* 8.7* 10.5* 9.9* HCT 29.0* 26.6* 31.3* 29.8* PLT 173 148 164 186 MCV 93.5 92.0 89.9 91.1 Coagulation: No results for input(s): PT , INR , APTT in the last 72 hours. Active Hospital Problems Diagnosis Coronary artery disease Mixed hyperlipidemia Benign hypertension Atrial fibrillation Non-small cell cancer of right lung Resolved Hospital Problems No resolved problems to display. Social History Tobacco Use Smoking Status Former Current packs/day: 0.00 Average packs/day: 0.5 packs/day for 40.0 years (20.0 ttl pk-yrs) Types: Cigarettes Start date: 08/19/1959 Quit date: 08/19/1999 Years since quittin.2 Smokeless Tobacco Never Social History Substance and Sexual Activity Alcohol Use Yes Comment: occasional Assessment/Plan POD #5 - S/P opCABG x 3 with WESLEY to LAD, SVG to OM, SVG to RCA harvest, EF 65% Cardiac: Normal heart function Rhythm:SR BP: Stable/HTN Medications -- ContinueAmiodarone 200 mg TID for afib prophylaxis, Aspirin 325mg, Lipitor 80mg daily, Eliquis 5mg BID. Increase olmesartan to 20mg QD Will start beta farideh if HR remains stable Medications -- Hold [employer] norvasc, HCTZ Pulm: Incentive spirometry, and ambulate CXR: not obtained Neuro: Alert and oriented Renal: Baseline CR 0.94, GFR 60, Acute Kidney Injury Cr today is improving at 0.96. Plan: BMP in 48hours Electrolytes: K 3.9, replace with 20mEq : Keep lockwood for accurate I and O's Endocrine: No h/o DM, Post operative stress hyperglycemia continue variable dose sliding scale Heme: H/o anemia. Pre-op H/H 31, Today's H/H 9.9/29.8 reflecting 3% drop from baseline. [id number] PRBC on 10/23. H/H is up , Platelets up trending. Plan: Trending labs with repeat CBC in 48 hours Drains/Wires: removed Lines: D/c CVL Pain Control: Continue oral pain medication, IV narcotics for breakthrough pain, and scheduled tylenol. 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 Body mass index is 23.74 kg/m??.: Patient is Normal weight with BMI 18.5-24.9 Former Tobacco Abuse: Performed cessation education Prophylaxis: Eliquis and PPI. Perform vaccine screen and administered required vaccines Nutrition: Advance diet as tolerated DIET CARDIAC Low Cholesterol (AHA),; 2GM Sodium (Low), Consult Cardiac rehab and PT/OT Shower/Bathe patient daily Labs/Radiology: None Transfer to SPCU Discharge Disposition: home with son and HH. She is going to touch base with him to make sure he will be home with her 24 hours the first few days from discharge. * Kait Fajardo RN - 10/26/2023 10:30 PM CDT Patient received from CVICU. Alert and oriented x4, on RA. Normal sinus on monitor with amio drip @1mg. Denies pain at this time. Made comfortable in bed. * Lizz Delarosa RN - 10/26/2023 9:50 PM CDT CVICU Shift Note Significant shift events: No significant events to report. Patient Aox4, complains of pain 4/10 (oxy given, see MAR), afebrile. NSR, Bps okay, 2/ pulses. On RM with clear breath sounds. Bowel sounds active, last BM today. Lockwood out and first UO about 75mls on bedside commode. AMIO gtt still running at 1mg. Care of patient transitioned to Kait GRIFFITHS on SPCU. * Black Carolina RN - 10/26/2023 6:07 PM CDT Awaiting a bed on step down Neuro: ambulating to chair/bsc with 1 person assist, Oxy given once for pain Resp: room air, CONDE noted CV: pt went into afib around 1730 - CTS PA notified - Amio bolus and gtt ordered as well as BMP/Mag. Converted to NSR around 1900. SBP 120-140s, on Eliquis GI: appetite improving, had BM today : voided once since lockwood removal Endocrine: monitor ACHS IV: 2 PIV, R IJ CVC removed Social: pt's son updated at bed * Ashley Haskins PA - 10/26/2023 9:17 AM CDT CTS CVICU Note POD #4 - S/P opCABG x 3 with WESLEY to LAD, SVG to OM, SVG to RCA harvest, EF 65% Subjective: This morning, patient in SR on RA BP stable 140s today. Hemodynamically stable overnight Objective: Vitals: BP (!) 145/56 (BP Location: Right arm, Patient Position (BP): Supine) Pulse 73 Temp 98.8 ??F (37.1 ??C) Resp 21 Ht 5' 3 (1.6 m) Wt 60.8 kg (134 lb) SpO2 96% BMI 23.74 kg/m?? Oxygen Therapy O2 Device: room air (10/26/23 0700) Oxygen Therapy Flow (L/min): 2 (10/23/23 0500) Weight: Weight: 60.8 kg (134 lb) (10/19/23 1007) Drips: None I&O: Intake/Output Summary (Last 24 hours) at 10/26/2023 0917 Last data filed at 10/26/2023 0700 Gross per 24 hour Intake 300 ml Output 1153 ml Net -853 ml EKG: normal sinus rhythm Physical Exam: Heart: normal rate and regular rhythm Lungs: clear to auscultation bilaterally, normal respiratory effort Extremities: extremities normal, atraumatic, no cyanosis or edema, moves all extremities equally Abd: Soft, non-tender. Bowel sounds +, no flatus Wounds: sternal wound: Healing Leg: healing Neuro exam: alert, oriented x3 Data Review: BMP: Recent Labs 10/23/23 1715 10/24/23 0453 10/25/23 0409 10/26/23 0504 NA 135* 136 135* 135* K 4.8 4.2 3.7 3.9 CL 103 102 101 101 CO2 21* 24 24 23 BUN 27* 34* 34* 31* CREAT 1.29* 1.48* 1.14* 0.96* GLUCOSE 162* 119* 105* 100* MG 2.4 -- -- -- estimated creatinine clearance is 37.7 mL/min (A) (by C-G formula based on SCr of 0.96 mg/dL (H)). LFTs: No results for input(s): ALKPHOS , ALT , AST , BILITOTAL , ALBUMIN in the last 72 hours. CBC: Recent Labs 10/23/23 1715 10/24/233 10/25/23 0409 10/26/23 0504 WBC 31.0* 28.7* 24.8* 16.0* HGB 9.5* 8.7* 10.5* 9.9* HCT 29.0* 26.6* 31.3* 29.8* PLT 173 148 164 186 MCV 93.5 92.0 89.9 91.1 Coagulation: No results for input(s): PT , INR , APTT in the last 72 hours. Active Hospital Problems Diagnosis Coronary artery disease Mixed hyperlipidemia Benign hypertension Atrial fibrillation Non-small cell cancer of right lung Resolved Hospital Problems No resolved problems to display. Social History Tobacco Use Smoking Status Former Current packs/day: 0.00 Average packs/day: 0.5 packs/day for 40.0 years (20.0 ttl pk-yrs) Types: Cigarettes Start date: 08/19/1959 Quit date: 08/19/1999 Years since quittin.2 Smokeless Tobacco Never Social History Substance and Sexual Activity Alcohol Use Yes Comment: occasional Assessment/Plan POD #4 - S/P opCABG x 3 with WESLEY to LAD, SVG to OM, SVG to RCA harvest, EF 65% Cardiac: Normal heart function Rhythm:SR BP: Stable/HTN Medications -- ContinueAmiodarone 200 mg TID for afib prophylaxis, Aspirin 325mg, Lipitor 80mg daily, Eliquis 5mg BID. Increase olmesartan to 20mg QD Will start beta farideh if HR remains stable Medications -- Hold [employer] norvasc, HCTZ Pulm: Incentive spirometry, and ambulate CXR: not obtained Neuro: Alert and oriented Renal: Baseline CR 0.94, GFR 60, Acute Kidney Injury Cr today is improving at 0.96. Plan: BMP in 48hours Electrolytes: K 3.9, replace with 20mEq : Keep lockwood for accurate I and O's Endocrine: No h/o DM, Post operative stress hyperglycemia continue variable dose sliding scale Heme: H/o anemia. Pre-op H/H 04/17, Today's H/H 9.9/29.8 reflecting 3% drop from baseline. [id number] PRBC on 10/23. H/H is up , Platelets up trending. Plan: Trending labs with repeat CBC in 48 hours Drains/Wires: removed Lines: D/c CVL Pain Control: Continue oral pain medication, IV narcotics for breakthrough pain, and scheduled tylenol. 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 Body mass index is 23.74 kg/m??.: Patient is Normal weight with BMI 18.5-24.9 Former Tobacco Abuse: Performed cessation education Prophylaxis: Eliquis and PPI. Perform vaccine screen and administered required vaccines Nutrition: Advance diet as tolerated DIET CARDIAC Low Cholesterol (AHA),; 2GM Sodium (Low), Consult Cardiac rehab and PT/OT Shower/Bathe patient daily Labs/Radiology: None Transfer to SPCU Discharge Disposition: home with son and HH. She is going to touch base with him to make sure he will be home with her 24 hours the first few days from discharge. * Ashley Haskins PA - 10/25/2023 9:40 AM CDT CTS CVICU Note POD #3 - S/P opCABG x 3 with WESLEY to LAD, SVG to OM, SVG to RCA harvest, EF 65% Subjective: This morning, patient in SR on RA Yesterday had brief run of afib and hypotensive. Patient states pain is improved but feels nauseous Objective: Vitals: BP (!) 155/70 Pulse 79 Temp 99.5 ??F (37.5 ??C) (Bladder) Resp 17 Ht 5' 3 (1.6 m) Wt 60.8 kg (134 lb) SpO2 96% BMI 23.74 kg/m?? Oxygen Therapy O2 Device: room air (10/25/23 0830) Oxygen Therapy Flow (L/min): 2 (10/23/23 0500) Weight: Weight: 60.8 kg (134 lb) (10/19/23 1007) Drips: None I&O: Intake/Output Summary (Last 24 hours) at 10/25/2023 0940 Last data filed at 10/25/2023 0800 Gross per 24 hour Intake 930 ml Output 1290 ml Net -360 ml EKG: normal sinus rhythm Physical Exam: Heart: normal rate and regular rhythm Lungs: clear to auscultation bilaterally, normal respiratory effort Extremities: extremities normal, atraumatic, no cyanosis or edema, moves all extremities equally Abd: Soft, non-tender. Bowel sounds +, no flatus Wounds: sternal wound: Healing Leg: healing Neuro exam: alert, oriented x3 Data Review: BMP: Recent Labs 10/22/23181310/23/23 0407 10/23/23 1715 10/24/23 0453 10/25/23 0409 NA 136 141 135* 136 135* K 4.0 3.5 4.8 4.2 3.7 CL 103 106 103 102 101 CO2 20* 20* 21* 24 24 BUN 17 23 27* 34* 34* CREAT 1.01* 1.04* 1.29* 1.48* 1.14* GLUCOSE 162* 153* 162* 119* 105* MG 1.9 -- 2.4 -- -- estimated creatinine clearance is 33.1 mL/min (A) (by C-G formula based on SCr of 1.14 mg/dL (H)). LFTs: Recent Labs 10/22/23181310/23/23 040 ALKPHOS 70 73 ALT 10 16 AST 21 46* BILITOTAL 0.4 0.5 ALBUMIN 3.8 4.0 CBC: Recent Labs 10/22/23 1814 10/23/23 0407 10/23/23 1715 10/24/23 0453 10/25/23 0409 WBC 17.3* 26.2* 31.0* 28.7* 24.8* HGB 10.1* 10.7* 9.5* 8.7* 10.5* HCT 31.0* 31.7* 29.0* 26.6* 31.3* PLT 160 183 173 148 164 MCV 90.9 90.8 93.5 92.0 89.9 Coagulation: Recent Labs 10/22/23 1814 PT 16.5* INR 1.3* APTT 38.5* Active Hospital Problems Diagnosis Coronary artery disease Mixed hyperlipidemia Benign hypertension Atrial fibrillation Non-small cell cancer of right lung Resolved Hospital Problems No resolved problems to display. Social History Tobacco Use Smoking Status Former Current packs/day: 0.00 Average packs/day: 0.5 packs/day for 40.0 years (20.0 ttl pk-yrs) Types: Cigarettes Start date: 08/19/1959 Quit date: 08/19/1999 Years since quittin.2 Smokeless Tobacco Never Social History Substance and Sexual Activity Alcohol Use Yes Comment: occasional Assessment/Plan POD #3 - S/P opCABG x 3 with WESLEY to LAD, SVG to OM, SVG to RCA harvest, EF 65% Cardiac: Normal heart function Rhythm:SR BP: Stable/HTN Medications -- ContinueAmiodarone 200 mg TID for afib prophylaxis, Aspirin 325mg, Lipitor 80mg daily, Eliquis 5mg BID. Start olmesartan 10mg QD (lower than [employer] dose). Will start beta farideh if HR remains stable Medications -- Hold [employer] norvasc, HCTZ Pulm: Incentive spirometry, and ambulate CXR: Stable, small R effusion Neuro: Alert and oriented Renal: Baseline CR 0.94, GFR 60, Acute Kidney Injury Cr today is improving at 1.14. Plan: BMP in AM Electrolytes: K 3.7, replace with 40mEq : Keep lockwood for accurate I and O's Endocrine: No h/o DM, Post operative stress hyperglycemia continue variable dose sliding scale Heme: H/o anemia. Pre-op H/H 04/17, Today's H/H 10.5/.3 reflecting 0% drop from baseline. Received 1U PRBC on 10/23. H/H is down up , Platelets up trending. Plan: Trending labs with repeat CBC tomorrow Drains/Wires: removed Lines: Keep PIV and CVL Pain Control: Continue oral pain medication, IV narcotics for breakthrough pain, and scheduled tylenol. 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 Body mass index is 23.74 kg/m??.: Patient is Normal weight with BMI 18.5-24.9 Former Tobacco Abuse: Performed cessation education Prophylaxis: Eliquis started, D/c SQ heparin and PPI. Perform vaccine screen and administered required vaccines Nutrition: Advance diet as tolerated DIET CARDIAC Low Cholesterol (AHA),; 2GM Sodium (Low), Consult Cardiac rehab and PT/OT Shower/Bathe patient daily Labs/Radiology: Check CBC and BMP in the am Transfer to SPCU Discharge Disposition: home with son and HH. She is going to touch base with him to make sure he will be home with her 24 hours the first few days from discharge. * Tana Schaefer PA-C - 10/24/2023 6:38 AM CDT CTS CVICU Note POD #2 - S/P opCABG x 3 with WESLEY to LAD, SVG to OM, SVG to RCA harvest, EF 65% Subjective: Patient had decreased UOP yesterday evening, hypotension and bradycardia. Started on dobutamine, HR, BP and UOP improved. But went into A.fib this morning. Patient states pain is improved. Objective: Vitals: BP (!) 141/48 (BP Location: Right arm, Patient Position (BP): Supine) Pulse 80 Temp 98.6 ??F (37 ??C) (Bladder) Resp 16 Ht 5' 3 (1.6 m) Wt 60.8 kg (134 lb) SpO2 93% BMI 23.74 kg/m?? Oxygen Therapy O2 Device: room air (10/24/23 07) Oxygen Therapy Flow (L/min): 2 (10/23/23 0500) Weight: Weight: 60.8 kg (134 lb) (10/19/23 1007) Waveform: Square (10/22/232018) Vt Set (mL): 500 mL (10/22/232018) Set Rate (breaths/min): 12 bpm (10/22/232018) FIO2%: 30 (10/23/23 012) Peak Flow (L/min): 38 L/min (10/22/232018) Pressure Support (cmH20): 5 cmH20 (10/23/23 012) PEEP (cmH20): 5 cmH20 (10/23/23122) Hemodynamics: CI Cardiac Index: 3 L/min/m2 (10/23/23 08) PAP CVP CVP: 11 mmHg (10/24/23 06) Drips: Levo RETIRED Dose (mcg/min): 0 mcg/min (10/22/232157) Insulin Dose (units/hr): 0 Units/hr (10/23/23 08) Nipride Amiodarone I&O: Intake/Output Summary (Last 24 hours) at 10/24/2023 0638 Last data filed at 10/24/2023 0600 Gross per 24 hour Intake 2077.53 ml Output 851 ml Net 1226.53 ml EKG: normal sinus rhythm and diffuse ST elevations, II,AVF, V2-V5 Chest Tubes- remove eft pleural sammy: 80 ml/24 hours no air leak Physical Exam: Heart: normal rate and regular rhythm Lungs: clear to auscultation bilaterally, normal respiratory effort Extremities: extremities normal, atraumatic, no cyanosis or edema, moves all extremities equally Abd: Soft, non-tender. Bowel sounds +, no flatus Wounds: dressing in place Neuro exam: alert, oriented x3 Data Review: BMP: Recent Labs 10/21/23 0646 10/22/23 0101 10/22/23 1814 10/23/23 0407 10/23/23 17110/24/23 0453 NA 136 136 136 141 135* 136 K 3.6 3.4* 4.0 3.5 4.8 4.2 CL 99 99 103 106 103 102 CO2 24 26 20* 20* 21* 24 BUN 15 20 17 23 27* 34* CREAT 0.94 1.32* 1.01* 1.04* 1.29* 1.48* GLUCOSE 107* 123* 162* 153* 162* 119* MG -- -- 1.9 -- 2.4 -- estimated creatinine clearance is 25.5 mL/min (A) (by C-G formula based on SCr of 1.48 mg/dL (H)). LFTs: Recent Labs 10/22/23181310/23/23406 ALKPHOS 70 73 ALT 10 16 AST 21 46* BILITOTAL 0.4 0.5 ALBUMIN 3.8 4.0 CBC: Recent Labs 10/21/23 0646 10/22/23 0101 10/22/23181310/23/237 10/23/23171410/24/23452 WBC 8.9 11.1* 17.3* 26.2* 31.0* 28.7* HGB 9.9* 9.7* 10.1* 10.7* 9.5* 8.7* HCT 31.1* 29.8* 31.0* 31.7* 29.0* 26.6* PLT 231 238 160 183 173 148 MCV 92.6 92.0 90.9 90.8 93.5 92.0 Coagulation: Recent Labs 10/21/23 0646 10/21/23 1505 10/21/23204310/22/231813 PT -- -- -- 16.5* INR -- -- -- 1.3* APTT 100.7* 66.1* 69.4* 38.5* Active Hospital Problems Diagnosis Coronary artery disease Mixed hyperlipidemia Benign hypertension Atrial fibrillation Non-small cell cancer of right lung Resolved Hospital Problems No resolved problems to display. Social History Tobacco Use Smoking Status Former Current packs/day: 0.00 Average packs/day: 0.5 packs/day for 40.0 years (20.0 ttl pk-yrs) Types: Cigarettes Start date: 08/19/1959 Quit date: 08/19/1999 Years since quittin.1 Smokeless Tobacco Never Social History Substance and Sexual Activity Alcohol Use Yes Comment: occasional Assessment/Plan POD #2 - S/P opCABG x 3 with WESLEY to LAD, SVG to OM, SVG to RCA harvest, EF 65% Cardiac: Normal heart function Rhythm: A. Fib, BP: Hypotensive started on dobutamine now hypertensive in the 140s Weaned off nicardipine yesterday morning. Started on [employer] BP meds. Patient became more hypotensive and bradycardic so they were stopped and she was started on dobutamine. Patient went into A.fib in the 120s Metop IV 5mg x 1 given and 2.5 x 1 given. Rate controlled in the 90s. Medications -- ContinueAmiodarone 200 mg TID for afib prophylaxis, aspirin 325mg, lipitor 80mg daily, Start eliquis today. Medications -- Hold [employer] norvasc, omlesartan, HCTZ Pulm: Incentive spirometry, wean oxygen as tolerated, and ambulate, CXR: Stable Neuro: Alert and oriented Renal: Baseline CR 0.94, GFR 60, Acute Kidney Injury Cr 1.48 Electrolytes: Hypokalemia 4.2 resolved : Keep lockwood for accurate I and O's Endocrine: No h/o DM, Post operative stress hyperglycemia continue variable dose sliding scale Heme: H/o anemia. Pre-op H/H 04/17, Today's H/H 8.7/26.6 reflecting 15% drop from baseline. Dilutional vs acute blood loss? Will transfuse 1U PRBC H/H is down trending , Platelets down trending. Plan: Trending labs with repeat CBC tomorrow Drains/Wires: D/C sammy until decrease in drainage, no pacing wires Lines: Keep PIV and CVL Pain Control: Continue oral pain medication, IV narcotics for breakthrough pain, and scheduled tylenol. 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 Body mass index is 23.74 kg/m??.: Patient is Normal weight with BMI 18.5-24.9 Former Tobacco Abuse: Performed cessation education Prophylaxis: Start subcutaneous heparin and PPI. Perform vaccine screen and administered required vaccines Nutrition: Advance diet as tolerated DIET CARDIAC Low Cholesterol (AHA),; 2GM Sodium (Low), Consult Cardiac rehab and PT/OT Shower/Bathe patient daily Labs/Radiology: Check CBC and BMP in the am Keep in ICU until hemodynamically stable Discharge Disposition: TBD Tana Schaefer PA-C, 10/24/2023 6:38 AM * Mouna Carey RN - 10/24/2023 6:21 AM CDT CVICU Shift Note Significant shift events: - Dr. Ferrell called to update on UOP and HR status. Dr. Ferrell orders to start dobutamine @ 2.5, give 20 of lasix, d/c D5 1/2 NS, and obtain a VBG @ 0500. - UOP improved, HR 60-70's. - vICU ticket placed for diastolic BP's in the 40's driving down MAP. Orders for SBP goal above 110as long as adequate UOP is maintained. - Pain managed well with scheduled tylenol and PRN's. 0400 Tylenol held d/t max 24hr dose given. * Charles Finn MD - 10/23/2023 11:01 PM CDT Christin Triplett - Critical Care Physician Note 11:01 PM Physician: Charles Finn MD Virtual ticket received Labs/Notes briefly reviewed. Problem: BP target intervention/follow up/discussion: Discussed with bedside RN - patient MAP 60s do to low diastolic in 40s when sleeping; SBP 110s-120s. Currently on dobutamine 2.5 due to bradycardia and had multiple home anti-hypertensive medicationsrestarted today, UOP last hour 100 - ok to keep SBP goal >110 as long as maintaining good UOP Call Christin Triplett if assistance needed ([phone]) * Kristin Dior RN - 10/23/2023 7:04 PM CDT 0800- Dr. Ferrell at bedside and noted ST elevation on monitor. Patient having incisional CP 8/10 and back pain. Verbal orders received to give patient 5mg IV lopressor as well. 0830- EKG handed to [employer]CONDITIONING [employer]RA[employer]ING OFFICER Fadumo for review. Notified that patients back pain is L shoulder pain which patient reports has been ongoing since the procedure yesterday. Discussed PO metoprolol, olmesartan, and hydrochlorothiazide ordered at the same time with BETHANY schaefer due to patient just receiving IVlopressor. Ordered to give PO metoprolol and hydrochlorothiazide when available, and hold olmesartan at this time. 1050- received order to give olmesartan for SBP 140s. 1220- notified BETHANY Schaefer of decreased urine output this morning. Patient having poor PO intake. Orders received. 1450- HR low 50s and occasionally hitting high 40s, and continued low urine output. notified PA Fadumo. Orders received to hold metoprolol and give 250 albumin at this time. 1544- page out to [employer]CONDITION[employer] DRA[employer]ING OFFICER Raymundolwig to discuss low HR and low UO 1629- page out to AIRCONDITIONING DRAFTING OFFICER Hellwig to discuss low HR and low UO 1702- called dr. Ferrell to discuss ST elevation (EKG obtained), low HR and minimal UO. Orders received for ABG, BMP, CBC, and CVP. 1845- Dr. Ferrell at bedside, CBC, BMP, MG, ABG and CVP discussed. Dr. Ferrell looked at both EKGs for patient. Ordered to give 250 of albumin and call with an update. Notified silk folder RN to callDr. Ferrell after albumin is done. * Melanie Carmona, RD - 10/23/2023 5:07 PM CDT Images from the original note were not included. CLINICAL DIETITIAN PROGRESS NOTE [facility] Nutrition Risk Screen: Low Riki S/P opCABG x 3 with WESLEY to LAD, SVG to OM, SVG to RCA harvest, EF 65% Food and Nutrition Related History: Pt admits she was eating okay [employer] (eating well prior to surgeryin-house as well). Thinks her appetite is down a bit as of late, but contributes this to age. She does have some at loss over time (7.5% loss in 1 yr, not significant for time frame per ASPEN). NFPE is not especially significant, but some mild age related sarcopenia noted. Pt is at risk for malnutrition. Does not meet aspen criteria at this time, but easily could become malnourished, especially with recent surgery. She had drank 1/2 Ensure today and agrees to have another for dinner. Not feeling up to much more. Assessment: Anthropometrics: Height: 5' 3 (160 cm) (10/19/23 1007) Weight: 60.8 kg (134 lb) (10/19/23 1007) Body mass index is 23.74 kg/m??. [place] body weight: 52.4 kg (115 lb 8.3 oz) Adjusted ideal body weight: 55.8 kg (122 lb 14.6 oz) Admit weight: Weight: 60.8 kg (134 lb) (10/19/23 1007) Wt Readings from Last 10 Encounters: 10/19/23 60.8 kg (134 lb) 07/31/23 62.1 kg (137 lb) 06/04/23 63.5 kg (140 lb) 01/23/23 64.1 kg (141 lb 6.4 oz) 12/04/22 63.5 kg (140 lb) 11/30/22 65.7 kg (144 lb 14.4 oz) 06/22/22 63 kg (139 lb) 06/05/22 65.2 kg (143 lb 12.8 oz) 12/15/21 66.3 kg (146 lb 3.2 oz) 11/07/21 64.8 kg (142 lb 12.8 oz) Last seven weights (if available) from 09/25/23 1708 to 10/23/23 1707 (Last 7 readings): Weight Weight Method 10/19/23 1007 60.8 kg (134 lb) Actual Past Medical History: Diagnosis Date Arthritis Dyspnea on exertion GERD (gastroesophageal reflux disease) HTN (hypertension) Hx of degenerative disc disease Injury of back DDD Malignant neoplasm of lung Lab Results Component Value Date/Time NA 141 10/23/2023 04:07 AM K 3.5 10/23/2023 04:07 AM CL 106 10/23/2023 04:07 AM BUN 23 10/23/2023 04:07 AM CREAT 1.04 (H) 10/23/2023 04:07 AM GLUCOSE 153 (H) 10/23/2023 04:07 AM CA 9.3 10/23/2023 04:07 AM ALBUMIN 4.0 10/23/2023 04:07 AM GFR 55 10/23/2023 04:07 AM MG 1.9 10/22/2023 06:14 PM Lab Results Component Value Date/Time HGBA1C 5.6 10/20/2023 01:05 AM Pert Meds: lipitor, colace, morphine, oxy Food Allergies: No known food allergies Skin: surgical incisions Nutrition Prescription: DIET CARDIAC Low Cholesterol (AHA),; 2GM Sodium (Low), Intake: 100% prior to surgery Nutrition intake is meeting less than 50% of recommended nutritional needs D: Increased nutrient needs r/t physiological causes increasing nutrient needs as evidenced by post-op I:Nutrition Intervention: Sending Ensure Enlive cat and strawberry Discussed nutrition needs Provided HH booklet and discussed. Left RD contact info Goal: Consume 75% of meals/ supplements M/E: 1. Continue to monitor: Anthropometrics, Digestive, Skin, and Biochemical data 2. Follow up every 4-7 days and as needed. Time spent: [address] LD Contact via [employer] Work cell #: [phone] Office #: [phone] * Tana Schaefer PA-C - 10/23/2023 8:23 AM CDT CTS CVICU Note POD #1 - S/P opCABG x 3 with WESLEY to LAD, SVG to OM, SVG to RCA harvest, EF 65% Subjective: Patient c/o significant amount of back and incisional pain. Objective: Vitals: BP 122/59 Pulse 80 Temp 99 ??F (37.2 ??C) Resp 25 Ht 5' 3 (1.6 m) Wt 60.8 kg (134 lb) SpO2 97% BMI 23.74 kg/m?? Oxygen Therapy O2 Device: nasal cannula (10/23/23 0500) Oxygen Therapy Flow (L/min): 2 (10/23/23 050) Weight: Weight: 60.8 kg (134 lb) (10/19/23 1007) Waveform: Square (10/22/232018) Vt Set (mL): 500 mL (10/22/232018) Set Rate (breaths/min): 12 bpm (10/22/232018) FIO2%: 30 (10/23/23 012) Peak Flow (L/min): 38 L/min (10/22/232018) Pressure Support (cmH20): 5 cmH20 (10/23/23122) PEEP (cmH20): 5 cmH20 (10/23/23122) Hemodynamics: CI Cardiac Index: 3 L/min/m2 (10/23/23 0800) PAP CVP CVP: 10 mmHg (10/23/23 0800) Drips: Levo RETIRED Dose (mcg/min): 0 mcg/min (10/22/232157) Insulin Dose (units/hr): 2 Units/hr (10/23/23 0201) Nipride Amiodarone I&O: Intake/Output Summary (Last 24 hours) at 10/23/2023822 Last data filed at 10/23/2023 0700 Gross per 24 hour Intake 3837.61 ml Output 2735 ml Net 1102.61 ml EKG: normal sinus rhythm and diffuse ST elevations, II,AVF, V2-V5 Chest Tubes remove and suction Mediastinal/left pleural sammy: 255 ml/24 hours no air leak Physical Exam: Heart: normal rate and regular rhythm Lungs: clear to auscultation bilaterally, normal respiratory effort Extremities: extremities normal, atraumatic, no cyanosis or edema, moves all extremities equally Abd: Soft, non-tender. Bowel sounds +, no flatus Wounds: dressing in place Neuro exam: alert, oriented x3 Data Review: BMP: Recent Labs 10/21/23 0646 10/22/23 0101 10/22/23 18110/23/23 0407 NA 136 136 136 141 K 3.6 3.4* 4.0 3.5 CL 99 99 103 106 CO2 24 26 20* 20* BUN 15 20 17 23 CREAT 0.94 1.32* 1.01* 1.04* GLUCOSE 107* 123* 162* 153* MG -- -- 1.9 -- estimated creatinine clearance is 36.3 mL/min (A) (by C-G formula based on SCr of 1.04 mg/dL (H)). LFTs: Recent Labs 10/22/23181310/23/23 0407 ALKPHOS 70 73 ALT 10 16 AST 21 46* BILITOTAL 0.4 0.5 ALBUMIN 3.8 4.0 CBC: Recent Labs 10/21/23 0646 10/22/23 0101 10/22/23181310/23/23 0407 WBC 8.9 11.1* 17.3* 26.2* HGB 9.9* 9.7* 10.1* 10.7* HCT 31.1* 29.8* 31.0* 31.7* PLT 231 238 160 183 MCV 92.6 92.0 90.9 90.8 Coagulation: Recent Labs 10/20/23 1549 10/20/23 2205 10/21/23 0646 10/21/23 1505 10/21/23 2044 10/22/23 1814 PT -- -- -- -- -- 16.5* INR -- -- -- -- -- 1.3* APTT 77.8* 64.7* 100.7* 66.1* 69.4* 38.5* Active Hospital Problems Diagnosis Coronary artery disease Mixed hyperlipidemia Benign hypertension Atrial fibrillation Non-small cell cancer of right lung Resolved Hospital Problems No resolved problems to display. Social History Tobacco Use Smoking Status Former Current packs/day: 0.00 Average packs/day: 0.5 packs/day for 40.0 years (20.0 ttl pk-yrs) Types: Cigarettes Start date: 08/19/1959 Quit date: 08/19/1999 Years since quittin.1 Smokeless Tobacco Never Social History Substance and Sexual Activity Alcohol Use Yes Comment: occasional Assessment/Plan POD #1 - S/P opCABG x 3 with WESLEY to LAD, SVG to OM, SVG to RCA harvest, EF 65% Cardiac: Normal heart function Rhythm: Sinus rhythm, BP: Hypertension Currently on nicardipine gtt will wean as starting on PO medications Medications -- Start Amiodarone 200 mg TID for afib prophylaxis, aspirin 325mg, lipitor 80mg daily,[employer] HCTZ 25mg daily, [employer] olmesartan 40mg daily, metoprolol 25mg BID Medications -- Hold norvasc Pulm: Incentive spirometry, wean oxygen as tolerated, and ambulate, CXR: Stable Neuro: Alert and oriented Renal: Baseline CR 0.94, GFR 60, stable cr 1.04 Electrolytes: Hypokalemia 3.5 replaced. : Keep Lockwood Catheter one more day and plan to remove tomorrow Endocrine: No h/o DM, Post operative stress hyperglycemia Start variable dose sliding scale Heme: H/o anemia. Pre-op H/H 04/17, Today's H/H 10.7/31.7 reflecting a 0% drop from baseline. None.H/H is Stable, Platelets stable. Plan: Trending labs with repeat CBC tomorrow Drains/Wires: D/C mediastinal drains without complications and continue sammy until decrease in drainage, no pacing wires Lines: D/C Arg[place], D/C Art line, and Keep PIV and CVL Pain Control: Continue oral pain medication, IV narcotics for breakthrough pain, and scheduled tylenol. 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 Body mass index is 23.74 kg/m??.: Patient is Normal weight with BMI 18.5-24.9 Former Tobacco Abuse: Performed cessation education Prophylaxis: Start subcutaneous heparin and PPI. Perform vaccine screen and administered required vaccines Nutrition: Advance diet as tolerated DIET CARDIAC Low Cholesterol (AHA),; 2GM Sodium (Low), Consult Cardiac rehab and PT/OT Shower/Bathe patient daily Labs/Radiology: Check CBC and BMP in the am Transfer to SPCU Discharge Disposition: TBD Tana Schaefer PA-C, 10/23/2023 8:48 AM * Karen Heart MD - 10/23/2023 8:03 AM CDT DAILY PROGRESS NOTE CARDIOLOGY [facility] Admit Date: 10/19/2023 Today: 10/23/2023, 3:09 PM LOS: 4 days Subjective: History of present illness: Zee Martinez is a 78 y.o. female with history of paroxysmal A-fib on Eliquis, hypertension, chronicdiastolic dysfunction non small cell lung cancer status post right upper lobe resection in 2020, degenerative joint disease, GERD, dyspnea on exertion, prior tobacco use, PAD/carotid artery stenosis. Recently has been experiencing more fatigue and CONDE. Echocardiogram was performed on 09/21/2023 it showed an EF of 60 to 65%, no significant valvular. On 10/03/2023 she underwent a nuc med stress test. The myocardial perfusion scan showed abnormal with evidence of a small apical perfusion defect consistent with myocardial ischemia. Given the results of the nuc med stress test and outpatient left heart cath was arranged and she presented today for this. Left heart cath was performed by Dr. Brooks via her right radial artery. Results showed severe multivessel disease to include critical ostial left main, severe ostial RCA. Given these results we have consulted CTS to consider bypass surgery. 10/19, 10/20- No new symptoms or problems 10/21- CABG by with WESLEY to LAD, SVG to OM, SVG to RCA harvest, EF 65% Extubated fiberglasser of 10/22 10/22- Doing ok after surgery. Pain managed by the primary CTS team. CVP- 11 WBC- 26.2 Hbg- 10.7 Cr- 1.04 I/O- 3887/2880 Telemetry last 24 hrs: No major events noted on telemetry { Intake/Output Summary (Last 24 hours) at 10/23/2023 1509 Last data filed at 10/23/2023 1450 Gross per 24 hour Intake 5070.49 ml Output 2893 ml Net 2177.49 ml Vitals: 10/23/23 1000 10/23/23 1100 10/23/23 1300 10/23/23 1400 BP: (!) 143/55 (!) 148/57 124/50 124/48 BP Location: Right arm Right arm Patient Position (BP): Supine Supine Pulse: 67 68 (!) 59 (!) 56 Resp: 24 17 Temp: 99.5 ??F (37.5 ??C) 99.3 ??F (37.4 ??C) TempSrc: Bladder Bladder SpO2: 97% 99% 96% 97% Weight: Height: Temp (24hrs), Av.5 ??F (36.4 ??C), Min:94.1 ??F (34.5 ??C), Max:99.5 ??F (37.5 ??C) Temp (72hrs), Av.7 ??F (36.5 ??C), Min:94.1 ??F (34.5 ??C), Max:99.5 ??F (37.5 ??C) Exam: General: Well developed, lying in the bed and complaining of pain from surgery. HEENT: Head is normocephalic, atraumatic, pupils equal and reactive to light and accomodation, sclerae anicteric, orthopharynx is clear Neck: Supple, no JVD, no carotid bruits Lungs: Respirations unlabored, clear to auscultation Heart: RRR, normal S1, S2, no S3 or S4, Abd: Soft, non-tender, non-distended. Normoactive bowel sounds. No abdominal bruits Extremities: No cyanosis, clubbing or edema. Peripheral pulses are 2+ and symmetric Neurologic: Awake, alert and oriented. Non focal. Psych: Mood appropriate. Data Review: Investigational studies resulted since yesterday have been reviewed. Lab Results Component Value Date WBC 26.2 (H) 10/23/2023 HCT 31.7 (L) 10/23/2023 HGB 10.7 (L) 10/23/2023 PLT 183 10/23/2023 NA 141 10/23/2023 CL 106 10/23/2023 K 3.5 10/23/2023 CO2 20 (L) 10/23/2023 BUN 23 10/23/2023 CREAT 1.04 (H) 10/23/2023 GLUCOSE 153 (H) 10/23/2023 CA 9.3 10/23/2023 MG 1.9 10/22/2023 AST 46 (H) 10/23/2023 ALT 16 10/23/2023 Lab Results Component Value Date INR 1.3 (H) 10/22/2023 INR 1.2 (H) 10/19/2023 INR 1.2 (H) 08/16/2021 PT 16.5 (H) 10/22/2023 PT 15.3 (H) 10/19/2023 PT 16.2 (H) 08/16/202110/21- CABG CORONARY ARTERY BYPASS GRAFT X3 OFF PUMP WITH LEFT INTERNAL MAMMARY ARTERY STERNOTOMY VEIN HARVEST ENDOSCOPIC, Left - Leg TRANSESOPHAGEAL ECHOCARDIOGRAM Left Heart Cath: 10/19/23 Impression: 1. Severe multivessel disease - critical ostial left main, severe ostial RCA 2. Normal LV filling pressure 3. No significant aortic valve gradient Echocardiogram 09/21/2023 STUDY CONCLUSIONS: SUMMARY: - Left [...] 26mm Hg. - No significant valvular abnormalities. Current Diet: DIET CARDIAC Low Cholesterol (AHA),; 2GM Sodium (Low), Is the patient appropriate for CardioMEMS screening: no Assessment/Plan: Assessment: Hyperlipidemia CAD S/p CABG with *3 WESLEY to LAD, SVG to OM, SVG to RCA with EF of 65% paroxysmal A-fib on Eliquis s/p appendage occlusion Hypertension non small cell lung cancer status post right upper lobe resection in 2020 degenerative joint disease GERD dyspnea on exertion with recent fatigue prior tobacco use PAD/carotid artery stenosis. Plan: High intensity statin with atorvastatin 40mg Aspirin 325 mg p.o. daily Hydrochlorothiazide 25 mg p.o. daily Olmesartan 40 mg p.o. daily Rest of the management by primary CTS team Cardiology will sign off. If need arises, please let us know. Joaquim Schmitz MD PGY-3, Internal Medicine Contact me via secure chat for fastest response 3:09 PM 10/23/2023 Plan discussed with patient; questions answered; patient agrees with current plan. Case discussed with Dr. Heatr , and in agreement with the above plan ADDENDUM: Patient seen and examined and chart, including all relevant data, was reviewed by me. Physical Exam: BP (!) 141/51 Pulse 78 Temp 99 ??F (37.2 ??C) Resp 18 Ht 5' 3 (1.6 m) Wt 60.8 kg (134 lb) SpO2 100% BMI 23.74 kg/m?? General appearance: alert, in no distress Head: atraumatic, Normocephalic, without obvious abnormality Eyes: conjunctivae clear. PERRL Neck: supple, symmetrical, trachea midline, no carotid bruit, and no JVD Lungs: clear to auscultation across the anterior charlton bilaterally, normal respiratory effort Heart: normal rate, regular rhythm, normal S1, S2, no murmurs or gallops Abdomen: Soft, non-tender. Bowel sounds normal. Extremities: intact distal pulses, moves all extremities equally, no edema Skin: Warm and dry. No rashes. Neurologic: Alert and oriented No focal motor. Mood is appropriate. Case discussed with Dr. Schmitz. I agree with the plan as outlined above. The patient is a 78-year-old woman with a history of paroxysmal atrial fibrillation on Eliquis, HTN, chronic HFpEF, non-small cell lung cancer-S/P RUL resection 2020, GERD, remote tobacco use and carotid artery disease whopresented for elective cardiac catheterization on 10/19/2023. Coronary angiography documented an ostial 90% left main stenosis and an 80% ostial stenosis of the RCA. CTS was consulted. The patient underwent CABG X 3 on 10/22/2023 with WESLEY to LAD. Overnight, the patient was successfully extubated. She is hemodynamically stable off pressors. Postoperative hemodynamics are stable off pressors. Postoperative rhythm is sinus. Fasting lipid panel documents an LDL of 90, triglycerides 83 and HDL 44. Recommend atorvastatin 40 mg daily to achieve an LDL less than 70 for secondary prevention. Follow-up fasting lipid panel will need to be checked within 6 to 12 weeks of discharge to ensure efficacy of this statin regimen. Once safe to do so from a postoperative standpoint, recommend resuming anticoagulation for CVA prophylaxis in the setting of paroxysmal atrial fibrillation and a [id number] 2 score of 4. Postoperative care will be directed by Dr. Ferrell and the CTS service. Cardiology service will follow at a distance. Please call if further cardiac issues arise. Karen Heart MD, [facility] Inpatient Cardiology Service [facility] * Mary Bunch RCP - 10/23/2023 2:24 AM CDT Patient extubated to 2 lpm, does not have stridor noted post extubation. Airway completed in airwaysection yes. Ventilator changed to Discontinued in ventilator flow sheet yes Was Bradycardia noted during extubation no Was Desaturation noted during extubation no Apnea requiring manual ventilation no Respiratory Assessment: Heart Rate 74 Respiratory Rate 31 SpO2 100 Breath Sounds clear dim * Charles Finn MD - 10/23/2023 2:06 AM CDT Christin Triplett - Critical Care Physician Note 2:06 AM Physician: Charles Finn MD Virtual ticket received Labs/Notes briefly reviewed. Problem: Passed SBT intervention/follow up/discussion: Patient on PSV >30min with RR low to mid 20s and Vt 300s - ABG shows good ventilation but [id number] with BE -5 - order placed for extubation - 1 amp bicarb Call Christin Triplett if assistance needed ([phone]) * Olga Sandhu, DO - 10/22/2023 9:00 AM CDT [facility] Adult Hospitalist Progress Note Admit Date: 10/19/2023 Date of Note: 10/22/2023, 11:00 AM LOS: 3 days Assessment and Plan: Principal Problem: Coronary artery disease Active Problems: Non-small cell cancer of right lung Atrial fibrillation Benign hypertension Mixed hyperlipidemia # Severe multivessel disease CAD: had some sx of CONDE the last few months that prompted an outpatient stress test which revealed a small apical perfusion defect and subsequent LHC showing severe multivessel disease; CTS has been consulted with plan for CABG and possible LA appendage clip today; continue [employer] ASA and started on atorvastatin # pAFib: s/p PVI/CTI 08/2021; currently appears to be in NSR; holding [employer] eliquis as currently and was on a heparin gtt for CABG # HTN # Chronic HFpEF: last EF 09/2023 60-65%; continue HCTZ 25mg qd, amlodipine 10mg qd; noted PTAolmesartan 40mg held by CTS for upcoming procedure # PAD # Carotid artery stenosis: continue [employer] ASA; noted recent carotid artery US 10/16 showing L bifurcation-ICA moderate plaque and R bifurcation-ICA mild plaque; follows outpatient with vascular surgery; started on statin # NSCLC s/p RUL resection 08/2020: noted # Myasthenia gravis: in the past had sx including LE weakness and fatigue; continue [employer] pyridostigmine (per pt she normally takes BID not TID given some stomach upset which is okay with her neurologist); follows outpatient with neurology # Hypokalemia: will replete and repeat labs in AM # Leukocytosis: mildly elevated WBC 11s that resolved and slightly bumped up this AM; likely reactive as pt does not appear to have any overt signs of infection # GERD: continue [employer] PPI; added on pepcid and also bentyl for some cramping Nutrition: Current Diet and/or Nutritional Supplementation ordered: DIET NPO Sips w/Meds, Quality/Safety/Core Measures/Disposition Planning: DVT Prophylaxis - Heparin gtt held for OR PT POC OT POC Lockwood catheter:absent Current Code Status -Full Code Plan discussed with patient, questions answered. Estimated Discharge Day: few d Current Planned Disposition - Dispo: home Subjective Previous history of present illness and review of systems have been reviewed today as documented inthe H&P on 10/19/2023; medications, labs, studies, notes, orders and consults have been reviewed.I have reviewed the notes from admission. Today the pt reported overall that she feels well. Has family visiting at bedside. No SOB, abd pain, n/v, dysuria, diarrhea. Planning on CABG today. Objective BP (!) 141/44 (BP Location: Left arm, Patient Position (BP): Supine) Pulse 67 Temp 98.1 ??F (36.7 ??C) (Oral) Resp 17 Ht 5' 3 (1.6 m) Wt 60.8 kg (134 lb) SpO2 98% BMI 23.74 kg/m?? Temp(24hrs), Av.2 ??F (36.8 ??C), Min:97.9 ??F (36.6 ??C), Max:98.4 ??F (36.9 ??C) Moderate amount stool (10/20/23 1036) Exam: General: Alert, no distress. Heart: Regular rate and rhythm, no murmur Lungs: Clear to auscultation bilaterally Abdomen: Soft, non-tender. Bowel sounds times four. Extremities: No clubbing, cyanosis or edema Skin: Skin color, texture, turgor normal. Head: Normocephalic, atraumatic Neck: Supple, symmetrical, trachea midline Neuro: Moving all extremities Data: I have reviewed all new labs and studies resulted and pertinent ones are noted above On the day of the visit, I spent 40 minutes providing care to this patient including Preparing to see the patient, Obtaining and/or reviewing separately obtained history, Performing a medically appropriate examination and/or evaluation, Counseling and educating the patient/family/caregiver, Ordering medications, tests or procedures, Documenting clinical information in the medical record, Referring and communication with other health health care law specialist (not separately reported), Independently interpreting results and communicating results to the patient/family/caregiver (not separately reported), Care coordination (not separately reported), and Excluding time spent performing separately billed procedures and/or services. Olga Sandhu DO Please contact me via [employer] Secure Chat from 7am-7pm After hours please place [facility] * Monroe Howell MD - 10/21/2023 5:05 PM CDT Cardiology Progress Note LOS: 2 days History of Present Illness: Zee Martinez is a 78 y.o. female with history of paroxysmal A-fib on Eliquis, hypertension, chronicdiastolic dysfunction non small cell lung cancer status post right upper lobe resection in 2020, degenerative joint disease, GERD, dyspnea on exertion, prior tobacco use, PAD/carotid artery stenosis. Recently has been experiencing more fatigue and CONDE. Echocardiogram was performed on 09/21/2023 it showed an EF of 60 to 65%, no significant valvular. On 10/03/2023 she underwent a nuc med stress test. The myocardial perfusion scan showed abnormal with evidence of a small apical perfusion defect consistent with myocardial ischemia. Given the results of the nuc med stress test and outpatient left heart cath was arranged and she presented today for this. Left heart cath was performed by Dr. Brooks via her right radial artery. Results showed severe multivessel disease to include critical ostial left main, severe ostial RCA. Given these results we have consulted CTS to consider bypass surgery. 10/19 Patient is resting comfortably, and denies chest discomfort. 10/20 No new symptoms or problems. PHYSICAL EXAM: Telemetry: Sinus Intake/Output Summary (Last 24 hours) at 10/21/2023 1705 Last data filed at 10/21/2023 1118 Gross per 24 hour Intake 480 ml Output 900 ml Net -420 ml BP (!) 145/55 (BP Location: Right arm, Patient Position (BP): Supine) Pulse 68 Temp 98.4 ??F (36.9 ??C) (Oral) Resp 16 Ht 5' 3 (1.6 m) Wt 60.8 kg (134 lb) SpO2 99% BMI 23.74 kg/m?? Lungs: Respiratory effort normal. Lungs are clear. No wheezes or rales. Cardiovascular: PMI is not displaced. Regular rate and rhythm. Normal S1 and S2. No S3. No murmur. JVP not elevated. Abdomen: Soft non-tender, no masses, no bruit Extremities: No clubbing or cyanosis. No LE edema. LABS: Left Heart Cath: 10/19/23 Impression: 1. Severe multivessel disease - critical ostial left main, severe ostial RCA 2. Normal LV filling pressure 3. No significant aortic valve gradient Plan: 1. 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 2. Medical therapy for CAD, CTS consult and admission for CABG Echocardiogram 09/21/2023 STUDY CONCLUSIONS: SUMMARY: - Left [...] 26mm Hg. - No significant valvular abnormalities. Recent Labs 10/19/23 0958 10/20/23 0105 10/21/23 0646 NA 138 136 136 K 3.1* 3.8 3.6 CL 98 100 99 CO2 29 27 24 ANIONGAP 11 9 13 CA 10.0 9.5 9.2 GLUCOSE 113* 104* 107* BUN 22 20 15 CREAT 1.06* 0.87 0.94 Coagulation: Recent Labs 10/19/23 0958 10/19/23 1739 10/20/23 2205 10/21/23 0646 10/21/23 1505 PT 15.3* -- -- -- -- INR 1.2* -- -- -- -- APTT -- < > 64.7* 100.7* 66.1* < > = values in this interval not displayed. 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 Recommendations: CABG tentatively planned for early next week Hold [employer] Eliquis: Will bridge with heparin drip, heparin gtt to start at 1800 if RRA is stable Will continue prior to admission cardiac meds as listed below Aspirin 81 mg p.o. daily Norvasc 10 mg p.o. daily Hydrochlorothiazide 25 mg p.o. daily Olmesartan 40 mg p.o. daily Signed: Monroe Howell MD 10/21/2023, 5:05 PM * Olga Sandhu DO - 10/21/2023 11:56 AM CDT [facility] Adult Hospitalist Progress Note Admit Date: 10/19/2023 Date of Note: 10/21/2023, 3:56 PM LOS: 2 days Assessment and Plan: Principal Problem: Coronary artery disease Active Problems: Non-small cell cancer of right lung Atrial fibrillation Benign hypertension Mixed hyperlipidemia # Severe multivessel disease CAD: had some sx of CONDE the last few months that prompted an outpatient stress test which revealed a small apical perfusion defect and subsequent C showing severe multivessel disease; CTS has been consulted with plan for CABG and possible LA appendage clip tomorrow; continue [employer] ASA and started on atorvastatin # pAFib: s/p PVI/CTI 08/2021; currently appears to be in NSR; holding [employer] eliquis as currently and on a heparin gtt for possible upcoming procedure # HTN # Chronic HFpEF: last EF 09/2023 60-65%; continue HCTZ 25mg qd, amlodipine 10mg qd; noted PTAolmesartan 40mg held by CTS for upcoming procedure # PAD # Carotid artery stenosis: continue [employer] ASA; noted recent carotid artery US 10/16 showing L bifurcation-ICA moderate plaque and R bifurcation-ICA mild plaque; follows outpatient with vascular surgery; started on statin # NSCLC s/p RUL resection 08/2020: noted # Myasthenia gravis: in the past had sx including LE weakness and fatigue; continue [employer] pyridostigmine (per pt she normally takes BID not TID given some stomach upset which is okay with her neurologist); follows outpatient with neurology # Hypokalemia: resolved with repletion # Leukocytosis: mildly elevated WBC 11.4; likely reactive as pt does not appear to have any overt signs of infection and normalized on repeat # GERD: continue [employer] PPI; added on pepcid and also bentyl for some cramping Nutrition: Current Diet and/or Nutritional Supplementation ordered: DIET CARDIAC Low Cholesterol (AHA),; 2GM Sodium (Low), DIET NPO Strict Quality/Safety/Core Measures/Disposition Planning: DVT Prophylaxis - Heparin gtt PT POC OT POC Lockwood catheter:absent Current Code Status -Full Code Plan discussed with patient, questions answered. Estimated Discharge Day: few d Current Planned Disposition - Dispo: home Subjective Previous history of present illness and review of systems have been reviewed today as documented inthe H&P on 10/19/2023; medications, labs, studies, notes, orders and consults have been reviewed.I have reviewed the notes from admission. Today the pt reported overall she is doing well. Has some mild abd cramping/rumbling which she notes is chronic. No more indigestion. Objective BP (!) 145/55 (BP Location: Right arm, Patient Position (BP): Supine) Pulse 68 Temp 98.4 ??F (36.9 ??C) (Oral) Resp 16 Ht 5' 3 (1.6 m) Wt 60.8 kg (134 lb) SpO2 99% BMI 23.74 kg/m?? Temp (24hrs), Av.4 ??F (36.9 ??C), Min:98 ??F (36.7 ??C), Max:99.1 ??F (37.3 ??C) Moderate amount stool (10/20/23 1036) Exam: General: Alert, no distress. Heart: Regular rate and rhythm, no murmur Lungs: Clear to auscultation bilaterally Abdomen: Soft, non-tender. Bowel sounds times four. Extremities: No clubbing, cyanosis or edema Skin: Skin color, texture, turgor normal. Head: Normocephalic, atraumatic Neck: Supple, symmetrical, trachea midline Neuro: Moving all extremities Data: I have reviewed all new labs and studies resulted and pertinent ones are noted above On the day of the visit, I spent 40 minutes providing care to this patient including Preparing to see the patient, Obtaining and/or reviewing separately obtained history, Performing a medically appropriate examination and/or evaluation, Counseling and educating the patient/family/caregiver, Ordering medications, tests or procedures, Documenting clinical information in the medical record, Referring and communication with other health health care law specialist (not separately reported), Independently interpreting results and communicating results to the patient/family/caregiver (not separately reported), Care coordination (not separately reported), and Excluding time spent performing separately billed procedures and/or services. Olga Sandhu DO Please contact me via [employer] Secure Chat from 7am-7pm After hours please place E-ticket to [facility] * Ivone Barbosa MD - 10/21/2023 10:18 AM CDT CTS Preop Note I have reviewed the last H&P and examined the patient today and there are no changes. Objective: The right internal carotid shows 1-49% stenosis. Right vertebral artery is antegrade. No evidence of ulceration. The left internal carotid shows 50-79% stenosis with a ratio 2.1 , indicating <70% stenosis per NASCET criteria. Left vertebral artery is antegrade. No evidence of ulceration Vitals: BP (!) 150/43 (BP Location: Left arm, Patient Position (BP): Supine) Pulse (!) 54 Temp 98 ??F (36.7 ??C) (Oral) Resp 19 Ht 5' 3 (1.6 m) Wt 60.8 kg (134 lb) SpO2 97% BMI 23.74 kg/m?? Oxygen Therapy O2 Device: room air (10/21/23 0817) Weight Weight: 60.8 kg (134 lb) (10/19/23 1007) I & O: Intake/Output Summary (Last 24 hours) at 10/21/2023 1019 Last data filed at 10/21/2023 0544 Gross per 24 hour Intake 660 ml Output 1500 ml Net -840 ml EKG: Physical Exam: Heart: normal rate, regular rhythm, normal S1, S2, no murmurs, rubs, clicks or gallops Lungs: clear to auscultation bilaterally, normal respiratory effort Extremities: extremities normal, atraumatic, no cyanosis or edema, intact distal pulses, moves all extremities equally, no edema, redness or tenderness in the calves or thighs, normal strength, normal tone Abd: Soft, non-tender. Bowel sounds normal. No masses, no organomegaly. Neuro exam: alert, oriented x3 speech normal in context and clarity Data Review: BMP: Recent Labs 10/19/23 0958 10/20/23 0105 10/21/23 0646 NA 138 136 136 K 3.1* 3.8 3.6 CL 98 100 99 CO2 29 27 24 BUN 22 20 15 CREAT 1.06* 0.87 0.94 GLUCOSE 113* 104* 107* estimated creatinine clearance is 37.7 mL/min (by C-G formula based on SCr of 0.94 mg/dL). LFTs: Recent Labs 10/19/23 0958 ALKPHOS 83 ALT 7 AST 14 BILITOTAL 0.7 ALBUMIN 4.4 CBC: Recent Labs 10/19/23 0958 10/20/23 0105 10/21/23 0646 WBC 11.4* 9.2 8.9 HGB 10.2* 9.5* 9.9* HCT 31.5* 28.8* 31.1* PLT 247 221 231 MCV 91.6 91.4 92.6 Coagulation: Recent Labs 10/19/23 0958 10/19/23 1739 10/20/23 0105 10/20/23 0707 10/20/23 1549 10/20/23 2205 10/21/23 0646 PT 15.3* -- -- -- -- -- -- INR 1.2* -- -- -- -- -- -- APTT -- 37.5* 68.0* 86.1* 77.8* 64.7* 100.7* ABGs: No results for input(s): PH , PCO2 , PO2 , HCO3 , BASEEXCESS , SO2 in the last 72 hours. Assessment/Plan Dr Ferrell plans CABG tomorrow; possible left atrial appendage clip All question answered Labs reviewed B farideh will be ordered for am. * Monroe Howell MD - 10/20/2023 4:13 PM CDT Cardiology Progress Note LOS: 1 day History of Present Illness: Zee Martinez is a 78 y.o. female with history of paroxysmal A-fib on Eliquis, hypertension, chronicdiastolic dysfunction non small cell lung cancer status post right upper lobe resection in 2020, degenerative joint disease, GERD, dyspnea on exertion, prior tobacco use, PAD/carotid artery stenosis. Recently has been experiencing more fatigue and CONDE. Echocardiogram was performed on 09/21/2023 it showed an EF of 60 to 65%, no significant valvular. On 10/03/2023 she underwent a nuc med stress test. The myocardial perfusion scan showed abnormal with evidence of a small apical perfusion defect consistent with myocardial ischemia. Given the results of the nuc med stress test and outpatient left heart cath was arranged and she presented today for this. Left heart cath was performed by Dr. Brooks via her right radial artery. Results showed severe multivessel disease to include critical ostial left main, severe ostial RCA. Given these results we have consulted CTS to consider bypass surgery. 10/19 Patient is resting comfortably, and denies chest discomfort. PHYSICAL EXAM: Telemetry: Sinus Intake/Output Summary (Last 24 hours) at 10/20/2023 1614 Last data filed at 10/20/2023 1606 Gross per 24 hour Intake 660 ml Output 1200 ml Net -540 ml BP (!) 158/62 (BP Location: Left arm, Patient Position (BP): Supine) Pulse (!) 58 Temp 98.9 ??F(37.2 ??C) (Oral) Resp 13 Ht 5' 3 (1.6 m) Wt 60.8 kg (134 lb) SpO2 97% BMI 23.74 kg/m?? Lungs: Respiratory effort normal. Lungs are clear. No wheezes or rales. Cardiovascular: PMI is not displaced. Regular rate and rhythm. Normal S1 and S2. No S3. No murmur. JVP not elevated. Abdomen: Soft non-tender, no masses, no bruit Extremities: No clubbing or cyanosis. No LE edema. LABS: Left Heart Cath: 10/19/23 Impression: 1. Severe multivessel disease - critical ostial left main, severe ostial RCA 2. Normal LV filling pressure 3. No significant aortic valve gradient Plan: 1. 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 2. Medical therapy for CAD, CTS consult and admission for CABG Echocardiogram 09/21/2023 STUDY CONCLUSIONS: SUMMARY: - Left [...] 26mm Hg. - No significant valvular abnormalities. 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 Recommendations: CABG tentatively planned for early next week Hold [employer] Eliquis: Will bridge with heparin drip, heparin gtt to start at 1800 if RRA is stable Will continue prior to admission cardiac meds as listed below Aspirin 81 mg p.o. daily Norvasc 10 mg p.o. daily Hydrochlorothiazide 25 mg p.o. daily Olmesartan 40 mg p.o. daily Signed: Monroe Howell MD 10/20/2023, 4:14 PM * Olga Sandhu DO - 10/20/2023 12:00 PM CDT [facility] Adult Hospitalist Progress Note Admit Date: 10/19/2023 Date of Note: 10/20/2023, 6:00 PM LOS: 1 day Assessment and Plan: Active Problems: Coronary artery disease # Severe multivessel disease CAD: had some sx of CONDE the last few months that prompted an outpatient stress test which revealed a small apical perfusion defect and subsequent [facility] today showing severemultivessel disease; CTS has been consulted for evaluation of CABG; continue [employer] ASA and started onatorvastatin # pAFib: s/p PVI/CTI 08/2021; currently appears to be in NSR; holding [employer] eliquis as currently and on a heparin gtt for possible upcoming procedure # HTN # Chronic HFpEF: last EF 09/2023 60-65%; continue HCTZ 25mg qd, amlodipine 10mg qd; noted PTAolmesartan 40mg held by CTS for upcoming procedure # PAD # Carotid artery stenosis: continue [employer] ASA; noted recent carotid artery US 10/16 showing L bifurcation-ICA moderate plaque and R bifurcation-ICA mild plaque; follows outpatient with vascular surgery; started on statin # NSCLC s/p RUL resection 08/2020: noted # Myasthenia gravis: in the past had sx including LE weakness and fatigue; continue [employer] pyridostigmine (per pt she normally takes BID not TID given some stomach upset which is okay with her neurologist); follows outpatient with neurology # Hypokalemia: resolved with repletion # Leukocytosis: mildly elevated WBC 11.4; likely reactive as pt does not appear to have any overt signs of infection and normalized on repeat # GERD: continue [employer] PPI; had some upper abd discomfort/belching after a meal and will order pepcidand GI cocktail Nutrition: Current Diet and/or Nutritional Supplementation ordered: DIET CARDIAC Low Cholesterol (AHA),; 2GM Sodium (Low), Quality/Safety/Core Measures/Disposition Planning: DVT Prophylaxis - Heparin gtt PT POC OT POC [place] catheter:absent Current Code Status -Full Code Plan discussed with patient and nurse , questions answered. Estimated Discharge Day: few d Current Planned Disposition - Dispo: home Subjective Previous history of present illness and review of systems have been reviewed today as documented inthe H&P on 10/19/2023; medications, labs, studies, notes, orders and consults have been reviewed.I have reviewed the notes from admission. Today the pt reported some upper abd discomfort/pressure that she believed was indigestion as it started after her meal and had some burping with it. Appeared to go away after GI cocktail per nursing. No SOB, chest pain, abd pain, n/v. Objective BP (!) 140/45 (BP Location: Left arm, Patient Position (BP): Supine) Pulse 71 Temp 99.1 ??F (37.3 ??C) (Oral) Resp 16 Ht 5' 3 (1.6 m) Wt 60.8 kg (134 lb) SpO2 99% BMI 23.74 kg/m?? Temp(24hrs), Av.7 ??F (37.1 ??C), Min:98.1 ??F (36.7 ??C), Max:99.1 ??F (37.3 ??C) Moderate amount stool (10/20/23 1036) Exam: General: Alert, no distress. Heart: Regular rate and rhythm, no murmur Lungs: Clear to auscultation bilaterally Abdomen: Soft, non-tender. Bowel sounds times four. Extremities: No clubbing, cyanosis or edema Skin: Skin color, texture, turgor normal. Head: Normocephalic, atraumatic Neck: Supple, symmetrical, trachea midline Neuro: Moving all extremities Data: I have reviewed all new labs and studies resulted and pertinent ones are noted above On the day of the visit, I spent 42 minutes providing care to this patient including Preparing to see the patient, Obtaining and/or reviewing separately obtained history, Performing a medically appropriate examination and/or evaluation, Counseling and educating the patient/family/caregiver, Ordering medications, tests or procedures, Documenting clinical information in the medical record, Referring and communication with other health health care law specialist (not separately reported), Independently interpreting results and communicating results to the patient/family/caregiver (not separately reported), Care coordination (not separately reported), and Excluding time spent performing separately billed procedures and/or services. Olga Sandhu DO Please contact me via [employer] Secure Chat from 7am-7pm After hours please place E-ticket to [facility] * Tisha Robins MSW - 10/20/2023 9:11 AM CDT Clinical documentation reviewed. Comprehensive Discharge Planning Risk Assessment was completed. Documentation Related to CDPA score CDPA Documentation Ambulation: independent Transferring: independent Toileting: independent Bathing: independent Dressing: independent Eating: independent Communication: understands/communicates w/o difficulty Weight-Bearing Status: no weight-bearing restrictions Living Arrangements: Lives with family member(s) Total Score of 9 or below does not identify immediate needs for discharge. CDPA Risk Score Total Score: 6 6 Age Criteria that do not apply: Self-reported walking limitation Disability Prior Living Status Please place consult if needs for discharge are identified. Care Management will continue to follow for discharge planning. Tisha Robins [employer] WORK[employer] Zone: [phone] Office: [phone] documented in this encounter H&P Notes * Tana Schaefer PA-C - 10/22/2023 9:00 AM CDT CTS Preop Note I have reviewed the last H&P and examined the patient today and there are no changes. Objective: Vitals: BP (!) 141/44 (BP Location: Left arm, Patient Position (BP): Supine) Pulse 67 Temp 98.1 ??F (36.7 ??C) (Oral) Resp 17 Ht 5' 3 (1.6 m) Wt 60.8 kg (134 lb) SpO2 98% BMI 23.74 kg/m?? Oxygen Therapy O2 Device: room air (10/22/23 0800) Weight Weight: 60.8 kg (134 lb) (10/19/23 1007) I & O: Intake/Output Summary (Last 24 hours) at 10/22/2023 0900 Last data filed at 10/22/2023 0739 Gross per 24 hour Intake 480 ml Output 550 ml Net -70 ml EKG: normal EKG, normal sinus rhythm Physical Exam: Heart: normal rate and regular rhythm, no murmurs noted Lungs: clear to auscultation bilaterally, normal respiratory effort Extremities: extremities normal, atraumatic, no cyanosis or edema, moves all extremities equally, no edema, redness or tenderness in the calves or thighs, normal strength, normal tone Abd: Soft, non-tender. Bowel sounds normal. No masses, no organomegaly. Neuro exam: alert, oriented x3 Data Review: BMP: Recent Labs 10/19/23 0958 10/20/23 0105 10/21/23 0646 10/22/23 0101 NA 138 136 136 136 K 3.1* 3.8 3.6 3.4* CL 98 100 99 99 CO2 29 27 24 26 BUN 22 20 15 20 CREAT 1.06* 0.87 0.94 1.32* GLUCOSE 113* 104* 107* 123* estimated creatinine clearance is 28.6 mL/min (A) (by C-G formula based on SCr of 1.32 mg/dL (H)). LFTs: Recent Labs 10/19/23 0958 ALKPHOS 83 ALT 7 AST 14 BILITOTAL 0.7 ALBUMIN 4.4 CBC: Recent Labs 10/19/23 0958 10/20/23 0105 10/21/23 0646 10/22/23 0101 WBC 11.4* 9.2 8.9 11.1* HGB 10.2* 9.5* 9.9* 9.7* HCT 31.5* 28.8* 31.1* 29.8* PLT 247 221 231 238 MCV 91.6 91.4 92.6 92.0 Coagulation: Recent Labs 10/19/23 0958 10/19/23 1739 10/20/23 0105 10/20/23 0707 10/20/23 1549 10/20/23 2205 10/21/23 0646 10/21/23 1505 10/21/23 2044 PT 15.3* -- -- -- -- -- -- -- -- INR 1.2* -- -- -- -- -- -- -- -- APTT -- 37.5* 68.0* 86.1* 77.8* 64.7* 100.7* 66.1* 69.4* ABGs: No results for input(s): PH , PCO2 , PO2 , HCO3 , BASEEXCESS , SO2 in the last 72 hours. Assessment/Plan Plan for coronary artery bypass grafting with Dr. Ferrell All question answered Labs reviewed B farideh was given * Olga Sandhu DO - 10/19/2023 12:52 PM CDT [facility] Adult Hospitalist H&P Patient Name: Zee Martinez 1945 Primary Care Doctor: Aliza Bain MD Date of Admission: 10/19/2023 Date of Service: 10/19/2023 Assessment and Plan: # Severe multivessel disease CAD: had some sx of CONDE the last few months that prompted an outpatient stress test which revealed a small apical perfusion defect and subsequent LHC today showing severemultivessel disease; CTS has been consulted for evaluation of CABG; continue [employer] ASA and started onatorvastatin # pAFib: s/p PVI/CTI 08/2021; currently appears to be in NSR; holding [employer] eliquis as currently willstart on heparin gtt for possible upcoming procedure # HTN # Chronic HFpEF: last EF 09/2023 60-65%; continue [employer] olmesartan 40mg qd, HCTZ 25mg qd, amlodipine 10mg qd # PAD # Carotid artery stenosis: continue [employer] ASA; noted recent carotid artery US 10/16 showing L bifurcation-ICA moderate plaque and R bifurcation-ICA mild plaque; follows outpatient with vascular surgery; started on statin # NSCLC s/p RUL resection 08/2020: noted # Myasthenia gravis: in the past had sx including LE weakness and fatigue; continue [employer] pyridostigmine (per pt she normally takes BID not TID given some stomach upset which is okay with her neurologist); follows outpatient with neurology # Hypokalemia: decreased K 3.1; will replete with po 40mEq today and repeat in AM to see if more repletion is needed # Leukocytosis: mildly elevated WBC 11.4; likely reactive as pt does not appear to have any overt signs of infection; will repeat CBC in the AM # GERD: continue [employer] PPI DVT Prophylaxis Heparin gtt Code status Full Code Disposition: This patient was admitted under Inpatient: Based upon the patient's clinical conditionand documented clinical information, the patient is expected to require hospital care that crosses 2 midnights or more. Chief Complaint: progressive CONDE and abnormal stress test HPI: Patient is a 78 y.o. female with PMHx of pAFib, HTN, HFpEF, PAD, CAD, NSCLC s/p RUL resection 08/2020, who presents for a scheduled cardiac catheterization after having progressive CONDE and an abnormal stress test. NM stress test 10/02 revealing small apical perfusion defect c/w FL. LHC today revealing severe multivessel disease, critical ostial L main and severe ostial RCA. After LHC the pt was HDstable with SBP 150s. Significant labs included decreased K 3.1, elevated WBC 11.4, decreased hgb 10.2 (at BL). She is a direct admit per cardiology and CTS has been consulted for evaluate for CABG. Currently the pt reports that overall she is doing well. Has a mild NAVARRO and occasional congestion but notes this is chronic but no abd pain, nausea, constipation, chest pain, SOB, leg pain. Past Medical History: Diagnosis Date Arthritis Dyspnea on exertion GERD (gastroesophageal reflux disease) HTN (hypertension) Hx of degenerative disc disease Injury of back DDD Malignant neoplasm of lung Past Surgical History: Procedure Laterality Date HX ANKLE SURGERY HX COLONOSCOPY W/ POLYPECTOMY HX HYSTERECTOMY HX SPLENECTOMY HX THORACOTOMY Right 08/31/2020 THORACOTOMY performed by Edinson Ferrell MD at [facility] OR HX TONSILLECTOMY HX TRIGGER FINGER REPAIR NE RMVL LUNG OTHER THAN PNEUMONECTOMY 1 LOBE LOBECT Right 08/31/2020 LUNG LOBECTOMY performed by Edinson Ferrell MD at [facility] OR Family History Problem Relation Name Age of Onset Heart Disease Father Heart Disease Mother Stroke Sister Asthma Sister Social History Tobacco Use Smoking status: Former Current packs/day: 0.00 Average packs/day: 0.5 packs/day for 40.0 years (20.0 ttl pk-yrs) Types: Cigarettes Start date: 08/19/1959 Quit date: 08/19/1999 Years since quittin.1 Smokeless tobacco: Never Substance Use Topics Alcohol use: Yes Comment: occasional Prior to Admission Medications Prescriptions Last Dose Informant Patient Reported? Taking? acetaminophen-codeine (TYLENOL #3) 300-30 mg tablet Yes No Sig: Take 1 Tablet by mouth every 6 hours as needed. STOPPED amLODIPine (NORVASC) 10 mg tablet 10/19/2023 at 0800 No Yes Sig: Take 1 Tablet (10 mg) by mouth daily. apixaban (Eliquis) 5 mg tablet 10/16/2023 at 2100 No No Sig: Take 1 Tablet (5 mg) by mouth 2 times daily. aspirin (ECOTRIN EC) 81 mg Tablet, Delayed Release (E.C.) 10/19/2023 at 0800 Yes Yes Sig: Take 81 mg by mouth daily. calcium-cholecalciferol (OS-SUSAN 500+D) 500 mg(1,250mg) -200 unit tablet Yes No Sig: Take 1 Tablet by mouth daily. cholecalciferol, vitamin D3, (VITAMIN D3 ORAL) Yes No Sig: Take by mouth. cyanocobalamin (VITAMIN B-12) 100 mcg tablet Yes No Sig: Take 100 mcg by mouth daily. hydroCHLOROthiazide 25 mg tablet 10/19/2023 at 0800 Yes Yes Sig: TAKE 1 TABLET BY MOUTH EVERY DAY magnesium oxide 250 mg magnesium Tablet Yes No Sig: Take by mouth. olmesartan (BENICAR) 40 mg tablet 10/18/2023 at 2100 Yes Yes Sig: Take 40 mg by mouth daily. Medication bottle is Olmesartan Medoxomil 40 MG tab1 tab by mouth daily pantoprazole (PROTONIX) 20 mg Tablet, Delayed Release (E.C.) 10/18/2023 at 2100 Yes Yes Sig: Take 20 mg by mouth 2 times daily. pyRIDostigmine (MESTINON) 60 mg tablet 10/19/2023 at 0800 Yes Yes Sig: Take 60 mg by mouth 3 times daily. Facility-Administered Medications: None Allergies Allergen Reactions Penicillins Hives Review of Systems: Gen: No fever or chills; +mild NAVARRO Eyes: No visual changes Ears: No change in hearing Endocrine: No heat or cold intolerance Pulm: No cough or SOB; +CONDE Cardiac: No chest pain or orthopnea GI: No nausea, vomiting, constipation or diarrhea : No hematuria, urgency or frequency Musculoskeletal: No pain or weakness Neuro: No numbness or tingling Psych: No anxiety or depression Skin: No rashes or eruptions All other ROS reviewed and are negative Physical Exam: Patient Vitals for the past 8 hrs: BP Temp Temp src Pulse Resp SpO2 Height Weight 10/19/23 1230 -- -- -- 65 19 97 % -- -- 10/19/23 1215 (!) 152/43 -- -- 64 17 95 % -- -- 10/19/23 1200 (!) 153/43 -- -- 74 15 97 % -- -- 10/19/23 1145 -- -- -- 74 14 100 % -- -- 10/19/23 1144 -- -- -- -- 19 -- -- -- 10/19/23 1142 (!) 141/92 -- -- -- -- -- -- -- 10/19/23 1100 -- -- -- 66 21 100 % -- -- 10/19/23 1045 -- -- -- 62 20 98 % -- -- 10/19/23 1030 -- -- -- (!) 57 18 100 % -- -- 10/19/23 1015 (!) 153/44 -- -- 61 26 95 % -- -- 10/19/23 1007 (!) 153/44 97.9 ??F (36.6 ??C) Temporal 60 17 100 % 5' 3 (1.6 m) 60.8 kg (134 lb) General: Alert, no distress. Heart: Regular rate and rhythm, no murmur Lungs: Clear to auscultation bilaterally Abdomen: Soft, non-tender. Bowel sounds times four. Extremities: No clubbing, cyanosis or edema Skin: Skin color, texture, turgor normal. Head: Normocephalic, atraumatic Neck: Supple, symmetrical, trachea midline Neuro: Moving all extremities Data Base: Lab: Results for orders placed or performed during the hospital encounter of 10/19/23 (from the past 24 hour(s)) COMPREHENSIVE METABOLIC PANEL Result Value Ref Range SODIUM 138 136 - 145 mmol/L POTASSIUM 3.1 (L) 3.5 - 5.0 mmol/L CHLORIDE 98 98 - 107 mmol/L CO2 29 22 - 29 mmol/L CALCIUM 10.0 8.6 - 10.2 mg/dL BUN 22 8 - 23 mg/dL CREATININE 1.06 (H) 0.51 - 0.95 mg/dL GLUCOSE 113 (H) 74 - 99 mg/dL TOTAL PROTEIN 7.9 6.7 - 8.6 g/dL ALBUMIN 4.4 3.5 - 5.2 g/dL BILIRUBIN TOTAL 0.7 0.2 - 1.1 mg/dL ALKALINE PHOSPHATASE 83 35 - 104 U/L AST 14 <33 U/L ALT 7 <34 U/L GFR 53 mL/min/1.73 sq meter ANION GAP 11 8 - 16 mmol/L CBC WITH DIFFERENTIAL Result Value Ref Range WBC 11.4 (H) 4.0 - 9.8 K/uL RBC 3.44 (L) 3.90 - 4.90 M/uL HEMOGLOBIN 10.2 (L) 11.8 - 14.8 g/dL HEMATOCRIT 31.5 (L) 35.5 - 44.0 % MCV 91.6 82.0 - 99.0 fL MCH 29.7 27.2 - 32.6 pg MCHC 32.4 31.5 - 35.5 g/dL RDW 13.9 11.5 - 14.5 % RDW-STDEV 46.4 37.1 - 48.7 fL PLATELETS 247 140 - 350 K/uL MPV 11.7 9.3 - 12.4 fL PROTIME-INR Result Value Ref Range PROTIME 15.3 (H) 12.7 - 15.1 Seconds INR 1.2 (H) 0.9 - 1.1 LIPID PANEL Result Value Ref Range CHOLESTEROL 151 <200 mg/dL TRIGLYCERIDE 83 <150 mg/dL HDL 44 40 - 59 mg/dL LDL CALCULATED 90 <100 mg/dL NON-HDL CHOLESTEROL 107 <130 mg/dL MANUAL DIFFERENTIAL Result Value Ref Range SEGMENTED NEUTROPHILS 55 % LYMPHOCYTES RELATIVE 10 (L) 43 - 53 % ATYPICAL LYMPHOCYTES RELATIVE 2 0 - 5 % MONOCYTES RELATIVE 33 % EOSINOPHILS RELATIVE 1 % NEUTROPHILS ABSOLUTE COUNT 6.22 1.90 - 7.00 K/uL LYMPHOCYTES ABSOLUTE 1.14 0.70 - 4.50 K/uL MONOCYTES ABSOLUTE 3.73 (H) 0.10 - 1.30 K/uL EOSINOPHILS ABSOLUTE 0.10 0.00 - 0.70 K/uL TOTAL CELLS COUNTED IN DIFF 110 RBC MORPHOLOGY abnormal PLATELET EST. Consistent w Count POIKILOCYTES 1+ /hpf OVALOCYTES 1+ /hpf 1) TTE 09/20: - Left ventricle: The cavity size was [...] 26mm Hg. - No significant valvular abnormalities. 2) NM stress test 10/03/23: 1) Stress EKG response was positive for [...] and small apical perfusion abnormality are new 3) [facility] 10/18: 1. Severe multivessel disease - critical ostial left main, severe ostial RCA 2. Normal LV filling pressure 3. No significant aortic valve gradient On the day of the visit, I spent 75 (1 hr 15 min) minutes providing care to this patient including Preparing to see the patient, Obtaining and/or reviewing separately obtained history, Performing a medically appropriate examination and/or evaluation, Counseling and educating the patient/family/caregiver, Ordering medications, tests or procedures, Documenting clinical information in the medical record, Referring and communication with other health health care law specialist (not separately reported), Independently interpreting results and communicating results to the patient/family/caregiver (not separately reported), Care coordination (not separately reported), and Excluding time spent performing separately billed procedures and/or services. Olga Sandhu DO Please contact me via [employer] Secure Chat from 7am-7pm After hours please place E-ticket to [facility] * Sarbjit Brooks MD - 10/19/2023 10:12 AM CDT Product Inspection Supervisor Pre-Procedure Note Patient: Zee Nguyen Martinez / 78 y.o. / female : 1945 [facility]: [id number] Today's date: 10/19/2023 Planned Procedure: [facility] Indications: dyspnea, abnormal stress test Appropriate history and physical on chart? Yes Dated: 10/19/2023 Risks, benefits and options of conscious sedation discussed with patient. Previous anesthesia experiences reviewed. Informed consent obtained? yes Past Medical History Past Medical History: Diagnosis [...] reports that she does not use drugs. Allergies Penicillins Medications Current Facility-Administered Medications: sodium chloride 0.9% infusion, , IV, pre-proc continuous, Sarbjit Boroks MD Review of Systems Review of systems in addition to above: GEN: no notable weight loss or gain reported, energy status stable Skin: no rashes or bruising/redness HEENT: no sinus complaints, no hearing loss reported, no visual changes Lungs: no cough, wheezing, or hemoptysis CV: No edema, orthopnea, PND, claudication GI: no diarrhea, abd pain, melena or BRBPR : no dysuria reported or hematuria Musc: no back or neck pain or joint/range of motion problems Endo: no heat or cold intolerance reported, polyuria/-dypsia Neuro: no stroke symptoms, numbness, tingling, balance problems All other systems reviewed and negative. Physical Exam There were no vitals filed for this visit. General: no distress, oriented, looks well Head/neck: no rashes, xanthelasma, or notable icterus CV: normal neck veins, normal auscultated S1/2, no extra heart sounds or gallops Lungs: clear to auscultation bilaterally, no wheezes, rales, rhonchi Abd: soft, non tender, non distended Ext: no edema, warm Musc: grossly normal range of motion, no notable joint pain with movement Skin: warm to touch, dry Neuro: normal general sensation extremities, no gross deficits noted Psych: normal affect and mood Laboratory Data No results found for this visit on 10/19/23 (from the past 24 hour(s)). Lab Results Component Value Date/Time WBC 7.2 08/16/2021 06:02 AM HGB 10.2 (L) 08/16/2021 06:02 AM HGBPOC 10.0 (L) 08/16/2021 07:15 AM HGBPOC 10.0 (L) 08/16/2021 07:15 AM HGBPOC 10.0 (L) 08/16/2021 07:15 AM HGBPOC 10.0 (L) 08/16/2021 07:15 AM HCT 32.6 (L) 08/16/2021 06:02 AM HCTPOC 30 (L) 08/16/2021 07:15 AM PLT 224 08/16/2021 06:02 AM MCV 91.3 08/16/2021 06:02 AM No results found for: TSH , TSHULTRA , THYROIDSTIM No results found for: CHOLTOT , HDL , LDLCALC , LDLDIRECT , TRIGLYCERIDE Lab Results Component Value Date/Time NA 143 08/16/2021 06:02 AM K 3.8 08/16/2021 06:02 AM CL 104 08/16/2021 06:02 AM CO2 25 08/16/2021 06:02 AM CA 9.7 08/16/2021 06:02 AM BUN 25 (H) 08/16/2021 06:02 AM CREAT 1.31 (H) 08/16/2021 06:02 AM GLUCOSE 112 (H) 08/16/2021 06:02 AM ANIONGAP 14 08/16/2021 06:02 AM ASA Classification: 1. A normal healthy patient 2. A patient with mild systemic disease 3. A patient with severe systemic disease. Limits activity, but not incapacitating. 4. A patient with incapacitating systemic disease that is a constant threat to life. 5. A moribund patient, not expected to survive 24 hours with or without the procedure. Choose ASA Class: 3 Cleared for sedation: yes NPO status per policy: yes Plan/Recommendation: current treatment plan is effective, no change in therapy Sarbjit Brooks MD documented in this encounter Procedure Notes * Johnathon Mac RN - 10/26/2023 9:44 AM CDT Ultrasound guided peripheral IV insertion attempted 1 time on Zee Martinez Date: 10/26/2023 Time: 929 Insertion was successful: Yes Description of insertion attempt: 20g PIV placed into left forearm. Flushes without difficulty and has blood return. Primary RN notified. * Gertrude Willis RDCS - 10/25/2023 7:29 AM CDT Images from the original note were not included. ST DCS Definity Protocol [facility] Approved by: [facility] - Medical Executive Committee Approval Date: 11/30/2022 ORDERS ARE ENTERED ???PER PROTOCOL?? Enter the protocol in the patient's electronic health record using smartphrase: .definityprotocol PURPOSE: DEFINITY?? is approved for intravenous use in patients with technically suboptimal echocardiograms to assist in left ventricular opacification, left ventricular endocardial border definition, and to offer other imaging enhancements to benefit the diagnostic value of the echocardiogram POLICY: Verify patient does not meet any of these exclusion criteria Allergy or hypersensitivity to DEFINITY?? or octafluoropropane Allergy or hypersensitivity to Polyethylene Glycol Is DEFINITY?? is not recommended while you are , however, is not a criteriafor exclusion. If patient is , formula feedings should be substituted for for one cycle following the administration of Definity. Breast milk produced within thattime should be discarded. Actively being supported by ECMO (extracorporeal membrane oxygenation) *Critical Care physicians can request use of DEFINITY?? on ECMO patients. The ECMO in file operator must bepresent when the DEFINITY ?? is administered and while images are being obtained. The ECMO operatorcan be reached at [phone] ([phone] in house) If patient meets/states ???yes to any exclusion criteria, STOP THE PROCEDURE, and annotate exam accordingly Patient meets at least one of these inclusion criteria Credentialed provider request Patient is technically difficult to image ([place] Society of Echocardiography guidelines recommend use when 2 or more segments within the apical/parasternal short axis views are not discernable) The question of left ventricular function has been raised and/or suspicion for estimated ejection fraction being less than 35 percent, regardless of image quality Furthermore, DEFINITY?? use is strongly recommended by the ASE, when visualization of the endocardium is critical, particularly for use with stress echocardiography PROTOCOL: DEFINITY?? may be ordered by a credentialed provider, RN or gear tooth grinding machine operator Educate patient or responsible constitution party on DEFINITY?? indications and potential side effects and review procedure goals with the patient and/or caregiver Verify patient does not have any allergy or contraindications to receive DEFINITY?? or octaflouropropane and confirm Allergies by ???Marking as Reviewed?? in patient's chart Verify peripheral or central line IV access. If IV access is not available, then a trained gear tooth grinding machine operator sql database administrator may place peripheral IV access, as appropriate, for medication administration NOTE: Do NOTaccess dialysis catheter or arterial line catheter. Before activating DEFINITY??, allow the refrigerated vial to warm to room temperature Activate DEFINITY?? using the VialMix machine: Vial of DEFINITY?? should be vented prior to withdrawing medication (18g or 20g needle) and care should be taken to ensure that any excess air has been cleared from the syringe Dilute the DEFINITY?? in a syringe with 8.7 mL Normal Saline to make 10 mL Administer DEFINITY?? in small increments as needed to enhance visualization up to a total of 10 mLof the diluted DEFINITY?? DEFINITY?? vials may require resuspension and/or reactivation (see image below for further information) RN or trained gear tooth grinding machine operator may discontinue peripheral IV access when IV no longer required for treatment DEFINITY? Activation/Reactivation1,6 If activated vial is not used within 5 minutes, resuspend with 10 seconds of hand agitation prior to use. DEFINITY? may be used for up to 12 hours after activation with VIALMIX??1 If not used within 12 hours, vial may be returned to refrigeration and reactivated once with VIALMIX?? within 24 hours6 Reactivated DEFINITY? may be used for up to 12 hours1,6 DOCUMENTATION: Change procedure order to include DEFINITY??, then END EXAM Verify that Allergies were reviewed and confirmed in patient's chart Document IV start and removal, if performed Order DEFINITY??, under Order Management in patient's chart Document DEFINITY?? administration under patient's MAR (Medication Administration Record) by going to MAR comment box, add 'Bolus diluted with 8.7 mL of NS. Patient tolerated well' (or list side effects) and link to correct IV line Add the protocol to the patient's electronic health record in a new note using smartphrase: .DEFINITYprotocol documented in this encounter Consult Notes * Edinson Ferrell MD - 10/19/2023 1:09 PM CDTAssociated Order(s): IP CONSULT TO CARDIOTHORACIC SURGERY Cardiothoracic Surgery Consult Patient Name: Zee Martinez / 78 y.o. / female : 1945 Referring Physician: Dr. Brooks HPI: Zee Martinez is a 78 y.o. 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 Ferrell, pathology showed tumor 3.6 cm size without visceral pleural invasion and lymphovascular invasion. All 5 lymph nodes from level 10 and 11 came back negative for malignancy. 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 -Atrial fibrillation s/p ablation for the atrial fibrillation in August 2021 -Anemia on iron 325 daily and vitamin B12 500 mcg daily. -Carotid artery disease (right internal carotid shows 1-49% and Left internal carotid shows 50-79%). - 40 year smoking history. Quit 23 years ago She is fairly active but over the last 3 years has been less active due to the lung surgery, and a.fib procedure. She plays [employer] ball and has previous gone dancing with her regularly. But has become more short of breath with minimal exertion. She states the possibly has had some jaw tightness but she thinks it was only during her stress test. She has had some non specific light headedness. Denies chest pain, fevers, chills, nausea, vomiting. ECHO (09/21/23): SUMMARY: - Left ventricle: The cavity size [...] 26mm Hg. - No significant valvular abnormalities. Cardiac Anatomy: Left ventricle: The cavity size was normal. Wall thickness was increased in a pattern of moderate LVH. Global systolic function is normal. The estimated ejection fraction is 60-65%. For Epic reporting: the left ventricular ejection fraction is 65% . Left ventricular diastolic function parameters are normal. LEFT VENTRICLE: The cavity size was normal. Wall thickness was increased in a pattern of moderate LVH. Global systolic function is normal. The estimated ejection fraction is 60-65%. For Epic reporting: the left ventricular ejection fraction is 65% . Left ventricular diastolic function parameters are normal. AORTIC VALVE: Structurally normal valve. Trileaflet. No significant regurgitation. The mean systolic gradient is 3mm Hg. The peak systolic gradient is 6mm Hg. The LVOT to aortic valve VTI ratio is 0.71. The valve area is 2.2cm^2. The ratio of LVOT to aortic valve peak velocity is 0.71. AORTA: Aortic root: The root is normal-sized. MITRAL VALVE: Structurally normal valve. No significant regurgitation. The peak diastolic gradient is 3mm Hg. LEFT ATRIUM: The atrium is normal in size. RIGHT VENTRICLE: The cavity size is normal. Systolic function is normal. PULMONIC VALVE: Structurally normal valve. No significant regurgitation. TRICUSPID VALVE: Structurally normal valve. No significant regurgitation. RIGHT ATRIUM: The atrium was normal in size. SYSTEMIC VEINS: Inferior vena cava: The IVC is normal-sized. PERICARDIUM: There is no pericardial effusion. Cardiac Catheterization (10/19/23): [place] Findings: 1. Hemodynamics A. Opening arterial pressure: 145/69 B. LVEDP: 5mmHg C. Aortic valve: no significant gradient 2. Coronary anatomy A. Left Main artery: The left main artery bifurcates into the left anterior descending artery and left circumflex artery. The left main artery has 90% ostial stenosis with pressure dampening, ventricularization, and ST depression with angiography B. Left anterior descending artery: Transapical vessel which gives rise to 2 diagonal arteries. Theleft anterior descending artery has mild disease. The diagonal arteries have no significant disease C. Left circumflex artery: non-dominant and gives rise to 2 obtuse marginal arteries. The left circumflex has no significant disease. The obtuse marginal arteries have no significant disease D. Right coronary artery: dominant and gives rise to the posterior descending artery and posterolateral branch. The right coronary artery 80% ostial stenosis. The posterior descending artery has no significant disease. The PLB has no significant disease No Intervention performed Complications: none Impression: 1. Severe multivessel disease - critical ostial left main, severe ostial RCA 2. Normal LV filling pressure 3. No significant aortic valve gradient Plan: 1. 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 2. Medical therapy for CAD, CTS consult and admission for CABG Carotid Artery Disease CONCLUSION: The right internal carotid shows 1-49% stenosis. Right vertebral artery is antegrade. No evidence of ulceration. The left internal carotid shows 50-79% stenosis with a ratio 2.1 , indicating <70% stenosis per NASCET criteria. Left vertebral artery is antegrade. No evidence of ulceration. NYHA Classification: Class II: Comfortable at rest. Ordinary physical activity results in fatigue, palpitation, dsypnea. CCS Angina Grading: No angina pectoris Medications Current Facility-Administered Medications Medication Dose Route Frequency Provider Last Rate Last Admin sodium chloride 0.9% infusion IV pre-proc continuous Sarbjit Brooks MD 125 mL/hr at 10/19/23 1113 125 mL/hr at 10/19/23 1113 naloxone (NARCAN) 0.4 mg/mL injection 0.1-0.4 mg 0.1-0.4 mg IV see admin instructions Sarbjit Brooks MD atropine injection 0.5 mg 0.5 mg IV every 5 minutes PRN Sarbjit Brooks MD sodium chloride 0.9% infusion IV continuous Sarbjit Brooks MD 125 mL/hr at 10/19/23 1253 New Bag at 10/19/23 1253 olmesartan (BENICAR) tablet 40 mg 40 mg Oral daily Sarbjit Brooks MD amLODIPine (NORVASC) tablet 10 mg 10 mg Oral daily Sarbjit Brooks MD pyRIDostigmine (MESTINON) tablet 60 mg 60 mg Oral TID Sarbjit Brooks MD [Held by Provider] apixaban (ELIQUIS) tablet 5 mg 5 mg Oral BID Sarbjit Brooks MD aspirin (ECOTRIN EC) tablet 81 mg 81 mg Oral daily Sarbjit Brooks MD pantoprazole (PROTONIX) tablet 20 mg 20 mg Oral BID Sarbjit Brooks MD hydroCHLOROthiazide tablet 25 mg 25 mg Oral daily Sarbjit Brooks MD heparin in 0.45% NaCl 25,000 unit/250 mL infusion 12 Units/kg/hr IV titrate Sarbjit Brooks MD [START ON 10/20/2023] heparin injection 1,800 Units 30 Units/kg IV every 6 hours PRN Nereida Brooks MD [START ON 10/20/2023] heparin injection 900 Units 15 Units/kg IV every 6 hours PRN Sarbjit Brooks MD [DISCONTINUED] midazolam (VERSED) injection ONE time PRN Sarbjit Brooks MD 1 mg at 10/19/23 1114 [DISCONTINUED] fentaNYL PF (SUBLIMAZE) 50 mcg/mL injection ONE time PRN Sarbjit Brooks MD 25 mcg at 10/19/23 1114 [DISCONTINUED] lidocaine 2 % (XYLOCAINE) injection ONE time PRN Sarbjit Brooks MD 3 mL at 10/19/23 1120 [DISCONTINUED] verapamiL (ISOPTIN) 2.5 mg, nitroglycerin in 5 % dextrose (TRIDIL) 100 mcg SOLUTION ONE time PRN Sarbjit Brooks MD Given at 10/19/23 1121 [DISCONTINUED] heparin injection ONE time PRN Sarbjit Brooks MD 3,000 Units at 10/19/23 1123 [DISCONTINUED] nitroglycerin in 5 % dextrose (TRIDIL) 200 mcg in sodium chloride 0.9% 2 mL injection ONE time PRN Sarbjit Brooks MD Given at 10/19/23 1126 [DISCONTINUED] iopamidoL (ISOVUE-300) 61% injection (drawn from [facility]-use bulk pack) ONE time Sarbjit Carvalho MD 55 mL at 10/19/23 1136 Past Medical History: Past Medical History: Diagnosis Date Arthritis Dyspnea on exertion GERD (gastroesophageal reflux disease) HTN (hypertension) Hx of degenerative disc disease Injury of back DDD Malignant neoplasm of lung Diabetes?: no Medication: none Hgb A1c: No results found for: HGBA1C , [id number] Past Surgical History: Past Surgical History: Procedure Laterality Date HX ANKLE SURGERY HX COLONOSCOPY W/ POLYPECTOMY HX HYSTERECTOMY HX SPLENECTOMY HX THORACOTOMY Right 08/31/2020 THORACOTOMY performed by Edinson Ferrell MD at [facility] OR HX TONSILLECTOMY HX TRIGGER FINGER REPAIR NE RMVL LUNG OTHER THAN PNEUMONECTOMY 1 LOBE LOBECT Right 08/31/2020 LUNG LOBECTOMY performed by Edinson Ferrell MD at [facility] OR Allergies: Allergies Allergen Reactions Penicillins Hives Family History: Family History Problem Relation Name Age of Onset Heart Disease Father Heart Disease Mother Stroke Sister Asthma Sister Patient does not have any direct female blood relatives (mother, sister, daughter) with the following at the age of < 65 yo: Angina, Acute FL, Sudden Cardiac without Obvious Cause, CABG Surgery, PCI. Patient does not have any direct male blood relatives (father, brother, son) with the following at the age of < 55 yo: Angina, Acute FL, Sudden Cardiac without Obvious Cause, CABG Surgery, PCI. Social History: Social History Socioeconomic History Marital status: Spouse name: Not on file Number of children: Not on file Years of education: Not on file Highest education level: Not on file Occupational History Not on file Tobacco Use Smoking status: Former Current packs/day: 0.00 Average packs/day: 0.5 packs/day for 40.0 years (20.0 ttl pk-yrs) Types: Cigarettes Start date: 08/19/1959 Quit date: 08/19/1999 Years since quittin.1 Smokeless tobacco: Never Vaping Use Vaping status: Never Used Substance and Sexual Activity Alcohol use: Yes Comment: occasional Drug use: Never Sexual activity: Not on file Other Topics Concern Not on file Social History Narrative Not on file Social Determinants of Health Financial Resource Strain: Low Risk (07/29/2020) Financial Resource Strain Difficulty of Paying Living Expenses: Not hard at all Food Insecurity: Patient Declined (10/19/2023) Food Insecurity Patient needs follow up regarding:: Not on file Transportation Needs: Patient Declined (10/19/2023) Transportation Needs Patient needs follow up regarding:: Not on file Social Connections: Unknown (07/29/2020) Social Connections Frequency of Communication with Friends and Family: Not on file Frequency of Social Gatherings with Friends and Family: Not on file Attends [employer] Services: Not on file Active Member of Clubs or Organizations: Yes Attends Club or Organization Meetings: Never Marital Status: Not on file Intimate Partner Violence: Patient Unable To Answer (10/19/2023) Intimate Partner Violence Patient has indicated abuse: : Patient unable to answer Housing Stability: Patient Declined (10/19/2023) Housing Stability Patient needs follow up regarding:: Not on file Review of Systems: History obtained from the patient Constitutional: denies fevers, chills, weight loss Respiratory: denies hemoptysis, wheeze Cardiovascular: denies chest pain, irregular heart beats Gastrointestinal: denies abdominal pain, change in bowel habits, no hematochezia, hematemesis Genitourinary: denies dysuria, frequency Hematologic: denies: bruising, bleeding Musculoskeletal: denies myalgias and muscle weakness Skin: denies rash, abnormal lesions, urticaria, pruritis Neurological: denies motor or sensory deficit Behavior, Psychologic: denies anxiety and depression Physical Exam: BP (!) 152/43 Pulse 65 Temp 97.9 ??F (36.6 ??C) (Temporal) Resp 19 Ht 5' 3 (1.6 m) Wt 60.8 kg (134 lb) SpO2 97% BMI 23.74 kg/m?? General appearance: alert, in no distress Eyes: No acute conjunctivitis, sclerae anicteric Neck: neck is supple, trachea is midline, no carotid bruit Head: atraumatic, normocephalic, without obvious abnormality Lungs: clear to auscultation bilaterally, normal respiratory effort Heart: normal rate and rhythm Chest Wall: normal exam with no anatomical abnormalities Abdomen: soft, non-tender, bowel sounds normoactive Extremities: extremities atraumatic, no cyanosis or edema, moves all extremities equally Hematologic/lymphatic: no submandibular adenopathy, no neck adenopathy Skin: limited skin examination demonstrates no acute pathologic findings, age appropriate changes, lifelong environmental sun exposure/tanning Neurologic: grossly normal Labs: Lab Results Component Value Date/Time WBC 11.4 (H) 10/19/2023 09:58 AM HGB 10.2 (L) 10/19/2023 09:58 AM HGBPOC 10.0 (L) 08/16/2021 07:15 AM HGBPOC 10.0 (L) 08/16/2021 07:15 AM HGBPOC 10.0 (L) 08/16/2021 07:15 AM HGBPOC 10.0 (L) 08/16/2021 07:15 AM HCT 31.5 (L) 10/19/2023 09:58 AM HCTPOC 30 (L) 08/16/2021 07:15 AM PLT 247 10/19/2023 09:58 AM MCV 91.6 10/19/2023 09:58 AM Lab Results Component Value Date/Time NA 138 10/19/2023 09:58 AM K 3.1 (L) 10/19/2023 09:58 AM CL 98 10/19/2023 09:58 AM CO2 29 10/19/2023 09:58 AM CA 10.0 10/19/2023 09:58 AM BUN 22 10/19/2023 09:58 AM CREAT 1.06 (H) 10/19/2023 09:58 AM GLUCOSE 113 (H) 10/19/2023 09:58 AM ANIONGAP 11 10/19/2023 09:58 AM Assessment: Coronary artery disease Atrial fibrillation s/p ablation- currently in NS Adenocarcinoma of the right upper lobe of the lung s/p right upper lobe lobectomy 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 B farideh will be administered on the morningof surgery She is a former smoker Link: STS RISK CALCULATOR Per the STS online calculator, the patient's predicted operative risk of mortality is: Procedure Type: Isolated CABG PERIOPERATIVE OUTCOME ESTIMATE % Operative Mortality 4.75% Morbidity & Mortality 11.5% Stroke 1.51% Renal Failure 1.79% Reoperation 3.36% Prolonged Ventilation 6.27% Deep Sternal Wound Infection 0.209% Long Hospital Stay (>14 days) 8.85% Short Hospital Stay (<6 days) 23.7% Patient was seen and examined. Chart and cath film was reviewed. Discussed with the patient. Questions were answered. Recommend CABG. Operation, Risk, benefits, potential complications and alternatives were all explained. Potential complications were explained including but not limited to infection, bleeding, need for transfusion or reexploration, FL, CVA, renal and pulmonary complications and . Patient agrees to proceed. Edinson Ferrell MD [facility] Cardiovascular and Thoracic Surgery On the day of the visit, I spent 55 minutes providing care to this patient including Preparing to see the patient, Obtaining and/or reviewing separately obtained history, Performing a medically appropriate examination and/or evaluation, Counseling and educating the patient/family/caregiver, and Docu menting clinical information in the medical record. * Sarbjit Brooks MD - 10/19/2023 12:47 PM CDT [facility] HEART AND VASCULAR INPATIENT CONSULTATION I agree with the cardiology provider's note today in regards to interval events, exam, test review,assessment, and plan. INTERVAL HISTORY 78y/o F with afib, HTN, diastolic dysfunction -has had progressive dyspnea on exertion, chest pain, fatigue -recent outpatient nuc MPI with deep ST depression and chest pain with stress, abnormal perfusion scan -cath today with critical ostial LM and RCA disease, being admitted for CABG Physical Exam BP (!) 149/42 Pulse (!) 58 Temp 97.9 ??F (36.6 ??C) (Temporal) Resp 18 Ht 5' 3 (1.6 m) Wt 60.8 kg (134 lb) SpO2 99% BMI 23.74 kg/m?? General: no distress, oriented, looks well Head/neck: no rashes, xanthelasma, or notable icterus CV: normal neck veins, normal auscultated S1/2, no extra heart sounds or gallops, no murmurs Lungs: clear to auscultation bilaterally, no wheezes, rales, rhonchi Abd: soft, non tender, non distended Ext: no edema, warm Notable/relevant testing results: Hgb 10.2 Cr 1.1 Echocardiogram 09/21/2023 STUDY CONCLUSIONS: SUMMARY: - Left [...] pressure 3. No significant aortic valve gradient Impression/Plan Severe multivessel CAD -cont aspirin -start high intensity staitn -cont norvasc -CTS eval for inpatient CABG Atrial fibrillation -Will continue rate control . -hold eliquis -start heparin gtt 6hrs after radial hemostasis Hypertension - BP well controlled. Will continue current medications. -Continue norvasc Hyperlipidemia - Lipids as above. -start high intensity statin You may contact me by Secure Chat from 7:30 AM-4 PM weekdays. If I don't answer immediately, please contact the AIRCONDITIONING DRAFTING OFFICER line at [phone] After-hours or the weekends, please DO NOT use Secure Chat, contact the exchange for the on-call doctor at [phone] Thank you for the opportunity to participate in the care of your patient, please do not hesitate tocall with any questions or concerns. Sarbjit Brooks MD [facility] - Heart and Vascular General, Interventional, and Structural Cardiology Vascular Medicine and Intervention Call our Cardiology AIRCONDITIONING DRAFTING OFFICER line with questions: [phone] [facility] Vascular Cardiology Consult Shruthi Thomas RN, MSN, DIRECTOR BUSINESS MANAGEMENT-C Cardiology consult, requested This consult is for advice and opinion regarding CAD Primary Care Physician: Aliza Bain MD Primary Dimension Quarry Supervisor: Dr Brooks History of Present Illness: Zee Martinez is a 78 y.o. female with history of paroxysmal A-fib on Eliquis, hypertension, chronicdiastolic dysfunction non small cell lung cancer status post right upper lobe resection in 2020, degenerative joint disease, GERD, dyspnea on exertion, prior tobacco use, PAD/carotid artery stenosis. Recently has been experiencing more fatigue and CONDE. Echocardiogram was performed on 09/21/2023 it showed an EF of 60 to 65%, no significant valvular. On 10/03/2023 she underwent a nuc med stress test. The myocardial perfusion scan showed abnormal with evidence of a small apical perfusion defect consistent with myocardial ischemia. Given the results of the nuc med stress test and outpatient left heart cath was arranged and she presented today for this. Left heart cath was performed by Dr. Brooks via her right radial artery. Results showed severe multivessel disease to include critical ostial left main, severe ostial RCA. Given these results we have consulted CTS to consider bypass surgery. Currently she is resting in bed, denies any CP, SOB, or any other complaints at this time. Denies chest pain/pressure, dizziness, syncope, palpitations, nausea, vomiting, orthopnea, PND, recent weight gain, recent URI and edema. Cardiac risk factors: age, post-menopausal female, personal CAD, HTN, Quit smoking tobacco 2019. Rare alcohol use. Denies use of drugs. Allergies Allergen Reactions Penicillins Hives Past Medical History: Diagnosis Date Arthritis Dyspnea on exertion GERD (gastroesophageal reflux disease) HTN (hypertension) Hx of degenerative disc disease Injury of back DDD Malignant neoplasm of lung Past Surgical History: Procedure Laterality Date HX ANKLE SURGERY HX COLONOSCOPY W/ POLYPECTOMY HX HYSTERECTOMY HX SPLENECTOMY HX THORACOTOMY Right 08/31/2020 THORACOTOMY performed by Edinson Ferrell MD at [facility] OR HX TONSILLECTOMY HX TRIGGER FINGER REPAIR NE RMVL LUNG OTHER THAN PNEUMONECTOMY 1 LOBE LOBECT Right 08/31/2020 LUNG LOBECTOMY performed by Edinson Ferrell MD at [facility] OR Family History Problem Relation Name Age of Onset Heart Disease Father Heart Disease Mother Stroke Sister Asthma Sister Social History Socioeconomic History Marital status: Spouse name: Not on file Number of children: Not on file Years of education: Not on file Highest education level: Not on file Occupational History Not on file Tobacco Use Smoking status: Former Current packs/day: 0.00 Average packs/day: 0.5 packs/day for 40.0 years (20.0 ttl pk-yrs) Types: Cigarettes Start date: 08/19/1959 Quit date: 08/19/1999 Years since quittin.1 Smokeless tobacco: Never Vaping Use Vaping status: Never Used Substance and Sexual Activity Alcohol use: Yes Comment: occasional Drug use: Never Sexual activity: Not on file Other Topics Concern Not on file Social History Narrative Not on file Social Determinants of Health Financial Resource Strain: Low Risk (07/29/2020) Financial Resource Strain Difficulty of Paying Living Expenses: Not hard at all Food Insecurity: Patient Declined (10/19/2023) Food Insecurity Patient needs follow up regarding:: Not on file Transportation Needs: Patient Declined (10/19/2023) Transportation Needs Patient needs follow up regarding:: Not on file Social Connections: Unknown (07/29/2020) Social Connections Frequency of Communication with Friends and Family: Not on file Frequency of Social Gatherings with Friends and Family: Not on file Attends Ep[employer] Services: Not on file Active Member of Clubs or Organizations: Yes Attends Club or Organization Meetings: Never Marital Status: Not on file Intimate Partner Violence: Patient Unable To Answer (10/19/2023) Intimate Partner Violence Patient has indicated abuse: : Patient unable to answer Housing Stability: Patient Declined (10/19/2023) Housing Stability Patient needs follow up regarding:: Not on file No current facility-administered medications on file prior to encounter. Current Outpatient Medications on File Prior to Encounter Medication Sig Dispense Refill amLODIPine (NORVASC) 10 mg tablet Take 1 Tablet (10 mg) by mouth daily. 90 Tablet 0 pyRIDostigmine (MESTINON) 60 mg tablet Take 60 mg by mouth 3 times daily. pantoprazole (PROTONIX) 20 mg Tablet, Delayed Release (E.C.) Take 20 mg by mouth 2 times daily. aspirin (ECOTRIN EC) 81 mg Tablet, Delayed Release (E.C.) Take 81 mg by mouth daily. hydroCHLOROthiazide 25 mg tablet TAKE 1 TABLET BY MOUTH EVERY DAY olmesartan (BENICAR) 40 mg tablet Take 40 mg by mouth daily. Medication bottle is Olmesartan Medoxomil 40 MG tab1 tab by mouth daily apixaban (Eliquis) 5 mg tablet Take 1 Tablet (5 mg) by mouth 2 times daily. 180 Tablet 3 acetaminophen-codeine (TYLENOL #3) 300-30 mg tablet Take 1 Tablet by mouth every 6 hours as needed.STOPPED cyanocobalamin (VITAMIN B-12) 100 mcg tablet Take 100 mcg by mouth daily. calcium-cholecalciferol (OS-SUSAN 500+D) 500 mg(1,250mg) -200 unit tablet Take 1 Tablet by mouth daily. magnesium oxide 250 mg magnesium Tablet Take by mouth. cholecalciferol, vitamin D3, (VITAMIN D3 ORAL) Take by mouth. Review of Systems: General: No fever, chills, weight gain or loss. + fatigue HEENT: No headaches, loss of consciousness or vision changes Respiratory:See HPI Cardiac: See HPI GI: No nausea, vomiting, diarrhea, constipation, abdominal pain, history of GI bleeding, melena or hematochezia : No dysuria or hematuria Musculoskeletal: No back pain, neck pain, joint pain or swelling Vascular: No claudication Neurological: No CVA or TIA symptoms All other ROS reviewed and are negative Physical Exam: BP (!) 152/43 Pulse 65 Temp 97.9 ??F (36.6 ??C) (Temporal) Resp 19 Ht 5' 3 (1.6 m) Wt 60.8 kg (134 lb) SpO2 97% BMI 23.74 kg/m?? General: resting in bed. HEENT: Normocephalic Neck: , no JVD, no carotid bruits, no adenopathy or mass noted Lungs: Respirations unlabored, clear to auscultation Heart: RRR, normal S1, S2, no S3 or S4, no murmurs, gallops or rubs Abd: Soft, non-tender, non-distended. Normoactive bowel sounds. Extremities: No cyanosis, clubbing or edema. Peripheral pulses are 2+ and symmetric. TR band inflated Neurologic: Awake, alert and oriented. Non focal. Psych: Mood appropriate. DATABASE: Results for orders placed or performed during the hospital encounter of 10/19/23 (from the past 24 hour(s)) COMPREHENSIVE METABOLIC PANEL Result Value Ref Range SODIUM 138 136 - 145 mmol/L POTASSIUM 3.1 (L) 3.5 - 5.0 mmol/L CHLORIDE 98 98 - 107 mmol/L CO2 29 22 - 29 mmol/L CALCIUM 10.0 8.6 - 10.2 mg/dL BUN 22 8 - 23 mg/dL CREATININE 1.06 (H) 0.51 - 0.95 mg/dL GLUCOSE 113 (H) 74 - 99 mg/dL TOTAL PROTEIN 7.9 6.7 - 8.6 g/dL ALBUMIN 4.4 3.5 - 5.2 g/dL BILIRUBIN TOTAL 0.7 0.2 - 1.1 mg/dL ALKALINE PHOSPHATASE 83 35 - 104 U/L AST 14 <33 U/L ALT 7 <34 U/L GFR 53 mL/min/1.73 sq meter ANION GAP 11 8 - 16 mmol/L CBC WITH DIFFERENTIAL Result Value Ref Range WBC 11.4 (H) 4.0 - 9.8 K/uL RBC 3.44 (L) 3.90 - 4.90 M/uL HEMOGLOBIN 10.2 (L) 11.8 - 14.8 g/dL HEMATOCRIT 31.5 (L) 35.5 - 44.0 % MCV 91.6 82.0 - 99.0 fL MCH 29.7 27.2 - 32.6 pg MCHC 32.4 31.5 - 35.5 g/dL RDW 13.9 11.5 - 14.5 % RDW-STDEV 46.4 37.1 - 48.7 fL PLATELETS 247 140 - 350 K/uL MPV 11.7 9.3 - 12.4 fL PROTIME-INR Result Value Ref Range PROTIME 15.3 (H) 12.7 - 15.1 Seconds INR 1.2 (H) 0.9 - 1.1 LIPID PANEL Result Value Ref Range CHOLESTEROL 151 <200 mg/dL TRIGLYCERIDE 83 <150 mg/dL HDL 44 40 - 59 mg/dL LDL CALCULATED 90 <100 mg/dL NON-HDL CHOLESTEROL 107 <130 mg/dL MANUAL DIFFERENTIAL Result Value Ref Range SEGMENTED NEUTROPHILS 55 % LYMPHOCYTES RELATIVE 10 (L) 43 - 53 % ATYPICAL LYMPHOCYTES RELATIVE 2 0 - 5 % MONOCYTES RELATIVE 33 % EOSINOPHILS RELATIVE 1 % NEUTROPHILS ABSOLUTE COUNT 6.22 1.90 - 7.00 K/uL LYMPHOCYTES ABSOLUTE 1.14 0.70 - 4.50 K/uL MONOCYTES ABSOLUTE 3.73 (H) 0.10 - 1.30 K/uL EOSINOPHILS ABSOLUTE 0.10 0.00 - 0.70 K/uL TOTAL CELLS COUNTED IN DIFF 110 RBC MORPHOLOGY abnormal PLATELET EST. Consistent w Count POIKILOCYTES 1+ /hpf OVALOCYTES 1+ /hpf Echocardiogram 09/21/2023 STUDY CONCLUSIONS: SUMMARY: - Left [...] pressure 3. No significant aortic valve gradient Cardiac Panel TROPONIN T, BASELINE 5TH GEN Date Value Ref Range Status 06/30/2021 16 (H) <=10 ng/L Final Comment: Hemolysis can falsely decrease Troponin quantitation. TROPONIN T, 2 HR 5TH GEN Date Value Ref Range Status 06/30/2021 15 (H) <=10 ng/L Final DELTA 2HR TROPONIN T Date Value Ref Range Status 06/30/2021 -1 See Interp. Final DELTA 6HR TROPONIN T Date Value Ref Range Status 06/30/2021 5 See Interp. 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 daily Norvasc 10 mg p.o. daily Hydrochlorothiazide 25 mg p.o. daily Olmesartan 40 mg p.o. daily Nitro drip if patient reports chest pain The patient was discussed with Dr. Brooks. Thank you for this consultation. We will be happy to follow the patient with you. Shruthi Thomas, RN, MSN, DIRECTOR BUSINESS MANAGEMENT-C Nurse Practitioner [facility] Heart [facility] Vascular I am available to receive secure chat messaging for any concerns Sunday-Sunday 8:00am -4:30 pm. If no response [place] Lead [place]CONDITIONING [place] [phone]. After 4:30pm or on weekends please call the exchange at [phone] documented in this encounter OR Notes * Operative Report - Edinson Ferrell MD - 10/25/2023 4:05 PM CDT [place], [place] Patient: ZEE MARTINEZ CSN: [id number] : 1945 Provider: Edinson Ferrell MD Operative Report DATE OF SERVICE: 10/22/2023 PREOPERATIVE DIAGNOSIS: Severe coronary artery disease and left main trunk stenosis, not amenable to PCI. Additional diagnosis, history of lung cancer, status post lobectomy. POSTOPERATIVE DIAGNOSIS: Severe coronary artery disease and left main trunk stenosis, not amenable to PCI. Additional postopdiagnosis, extensive calcification of ascending aorta. PROCEDURE: Epiaortic ultrasound. Endoscopic vein harvesting of the left lower extremity. Off-pump CABG x3. DECAL APPLIER: ERIC Fajardo. ANESTHESIA: General endotracheal with intraoperative ANSELMO. GRAFTS DONE: WESLEY to LAD, reverse saphenous vein graft to the RCA, reverse saphenous vein graft to OM1. FINDINGS: The patient had calcification in the ascending aorta making it higher risk for cannulation and cross-clamping, small targets in the circumflex system and extensive calcification of the coronary artery disease, preserved LV function. INDICATION FOR SURGERY: This was a 78-year-old female who was admitted to the hospital with acute coronary syndrome with finding of severe coronary artery disease including left main and proximal right disease. In view of these findings, the patient was referred for surgical evaluation. The patient was seen and evaluated.We have done a lobectomy on the patient previously with complete resection . operation, risks, benefits, complications, recuperation period, alternatives were all explained. Questions were answered. Possible complications were explained including, but not limited to infection, bleeding, need for transfusion, reexploration, FL, CVA, renal and pulmonary GI complications, vascular problem, and . The patient agreed to proceed. DESCRIPTION OF PROCEDURE: After preoperative preparation, the patient was brought to the operating room, underwent general anesthesia with endotracheal intubation and prepped and draped in the usual standard fashion. Using endoscopic technique, left thigh greater saphenous vein was harvested. Median sternotomy was performed. Left internal mammary artery was harvested and divided. Pericardium was opened. Upon evaluation ofthe aorta, we palpated posterior anterior plaque in the upper ascending aorta as well as the mid ascending aorta. Intraoperative epiaortic ultrasound was performed. Pericardium was opened and filled with sterile saline and using a sterile epiaortic ultrasound probe which was placed in a sterile-saline instilled bag, ascending aorta was scanned from the aortic root arch. Significant calcification in the posterior wall of the aorta as well as the upper ascending aorta was noted. I felt that with that the patient has a high risk of perioperative CVA with cross-clamping. Cannulation of the aorta a lso would be challenging risk of disruption of the plaque. Therefore, we decided to proceed with off pump revascularization. The proximal anastomoses were completed with epiaortic ultrasound probe with a lower ascending aorta which was free of calcification. Subsequently, the patient was half dose heparinized and we utilized [employer] stabilizing system to approach the vessel. The circumflex was approached first. Using Octopus and Urchin stabilizer, the OM1 was exposed with a bifurcating lesionwith small branches. We picked the largest 1 of the OM 1 branch and controlled it proximally, arteriotomy was performed. Vein to OM anastomosis was completed with some EKG changes which resolved at the occlusion of the vessel. After completion of the anastomosis, the patient was given to the RCA, mid RCA was carefully dissected, mid to distal RCA exposed, proximally controlled with silastic vessel loop. Arteriotomy was performed. Shunt was inserted because of the EKG changes and occlusion of this vessel, good resolution of EKG changes. Vein to RCA anastomosis was completed. After completion of the distal anastomosis of the RCA using heartstring device, the OM and RCA proximals were completed without any difficulty. Finally, attention was given to the LAD. Mid-LAD was dissected proximally controlled and opened. Again, we noted EKG changes during this anastomosis. However, it was self-limi ting and we were able to complete our WESLEY to LAD anastomosis and upon opening the WESLEY prior to opening the [place] vessel, the EKG changes resolved, confirming our good distal flow. After removal ofthe silastic vessel loop and tacking the mammary pedicle, checking all the proximals and distals for good hemostasis. Two mediastinal Sammy drains; one left pleural Sammy drain was inserted. The patient was weaned off the cardiopulmonary bypass without any difficulty with isoelectric EKG, and afterirrigation and closure of the sternotomy in the standard fashion, the patient was transferred to intensive care unit in stable condition. Edinson Ferrell MD MMODL D: [phone] V: [id number] CC * Brief Op Note - Edinson Ferrell MD - 10/22/2023 7:30 PM CDT Brief Postoperative Note Zee Martinez [id number] Pre-operative Diagnosis: Severe CAD Post-Op Diagnosis: Same. Acsending aortic calcification Procedure-anesthesia: Epiaortic U/S CORONARY ARTERY BYPASS GRAFT X3 OFF PUMP WITH LEFT INTERNAL MAMMARY ARTERY STERNOTOMY VEIN HARVEST ENDOSCOPIC, Left - Leg TRANSESOPHAGEAL ECHOCARDIOGRAM Anesthesia Type: General Surgeons and Role: Panel 1: * Edinson Ferrell MD Water Resources Project Manager: Debra REYES Findings: ascending aortic calcium,. Implants: Implant Name Type Inv. Item Serial No. Stretcher Helper Lot No. LRB No. Used Action CLIP LIGATING HORIZON MED TI [id number] - CSC - [id number] Clip CLIP LIGATING HORIZON MED TI [id number] - CSC TELEFLEX- WECK CLOSURE SYS [id number] N/A 2 Implanted CLIP LIGATING HORIZON SM TI [id number] - CSC - [id number] Clip CLIP LIGATING HORIZON SM TI [id number] - CSCTELEFLEX INC [id number] N/A 1 Implanted AML ANALYST CLIP SURGICLIP III TI LINDA SM 9IN [id number] - [id number] Clip AML ANALYST CLIP SURGICLIP III TI LINDA SM 9IN [id number] [employer] - COVIDIEN [id number] Left 1 Implanted AML ANALYST CLIP SURGICLIP III TI LINDA SM 9IN [id number] - [id number] Clip AML ANALYST CLIP SURGICLIP III TI LINDA SM 9IN [id number] [employer] - [employer]EN [id number] N/A 1 Implanted AML ANALYST CLIP SURGICLIP II LINDA 9.75IN [id number] - [id number] Clip AML ANALYST CLIP SURGICLIP II LINDA 9.75IN [id number] [employer] - COVID[employer]EN [id number] N/A 1 Implanted AML ANALYST CLIP SURGICLIP III TI LINDA SM 9IN [id number] - [id number] Clip AML ANALYST CLIP SURGICLIP III TI LINDA SM 9IN [id number] [employer] - COVID[employer]EN [id number] N/A 1 Implanted AML ANALYST CLIP SURGICLIP III TI LINDA SM 9IN [id number] - [id number] Clip AML ANALYST CLIP SURGICLIP III TI LINDA SM 9IN [id number] [employer] - COVID[employer]EN [id number] N/A 1 Implanted MARKER ANASTOMARK CABG SLCN FM-PM-1 - [id number] Other MARKER ANASTOMARK CABG SLCN FM-PM-1 [employer] N/A 2 Implanted Estimated Blood Loss: No blood loss documented. Ednison Ferrell MD * Meghann-OP - Moni Helm LCP - 10/22/2023 5:38 PM CDT Perfusion Note: Primary manager furniture: neeraj Cardiopulmonary bypass time= n/a Cross clamp time=n/a Procedure: CABG X 3__, off pump standby 375 cell saver processed Uneventful case. For complete information please see scanned perfusion record. * Operative Report - Sarbjit Brooks MD - 10/19/2023 10:12 AM CDT CARDIAC CATHETERIZATION FINAL REPORT Date of Procedure: 10/19/2023 Dimension Quarry Supervisor: Sarbjit Brooks MD Access: right radial artery Procedure(s): 1. Selective coronary angiography 2. Conscious sedation monitoring 3. Left heart catheterization Indication: Dyspnea Abnormal stress test Brief Clinical history: Zee Martinez is a 78 y.o. female with a history of progressive dyspnea and high risk abnormal stress test who presents for cardiac catheterization. Procedural Details: After obtaining written informed consent, the patient was draped and prepped in the usual sterile manner. Conscious sedation was administered. 1. Access: Local anesthetic was given and access was obtained in the right radial artery using a micropuncture technique and a 6F Terumo sheath was placed without difficulty. 3000u of IV heparin was administered. 2. Diagnostic: A 5F JR 4 diagostic and 5F EBU 3 guide were used to perform selective right and leftcoronary angiography, respectively. A 5F JR 4 diagnostic catheter was used to perform left heart catheterization. All catheters were introduced and removed over a .035 J wire. 3. Hemostasis: The arterial sheath was removed and a hemoband placed over the arteriotomy site and filled with air to maintain patent hemostasis. [place] Findings: 1. Hemodynamics A. Opening arterial pressure: 145/69 B. LVEDP: 5mmHg C. Aortic valve: no significant gradient 2. Coronary anatomy A. Left Main artery: The left main artery bifurcates into the left anterior descending artery and left circumflex artery. The left main artery has 90% ostial stenosis with pressure dampening, ventricularization, and ST depression with angiography B. Left anterior descending artery: Transapical vessel which gives rise to 2 diagonal arteries. Theleft anterior descending artery has mild disease. The diagonal arteries have no significant disease C. Left circumflex artery: non-dominant and gives rise to 2 obtuse marginal arteries. The left circumflex has no significant disease. The obtuse marginal arteries have no significant disease D. Right coronary artery: dominant and gives rise to the posterior descending artery and posterolateral branch. The right coronary artery 80% ostial stenosis. The posterior descending artery has no significant disease. The PLB has no significant disease No Intervention performed Complications: none Impression: 1. Severe multivessel disease - critical ostial left main, severe ostial RCA 2. Normal LV filling pressure 3. No significant aortic valve gradient Plan: 1. 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 2. Medical therapy for CAD, CTS consult and admission for CABG 10/19/2023 10:12 AM Sarbjit Brooks MD documented in this encounter Miscellaneous Notes * Care Plan - Karma Palm RN - 10/30/2023 5:28 PM CDT Pt discharged to skilled nursing per protocol. Discharge instructions given. Questions encouraged and answered. The patient verbalized understanding. Incisions healing well, no drainage, no erythema, nohernia, no seroma, no swelling, well approximated. All belongings accounted for. Pt taken to lobby via wheel chair per patient transport. Pt transferred to SNF by EMS. P/u at 1720. Report given to EMS and vitals checked before d/c. All questions answered. * Care Plan - Amy Recinos RN - 10/30/2023 3:08 PM CDT Discharge teaching with patient. Discussed restrictions after surgery. Discussed follow-up appointments. Patient was in bathroom, assisted to chair, having gas pain. Patient on RA, standby assist, given and instructed how to use IS as well as discharge paperwork. * Treatment Plan - Allen Teran RCP - 10/30/2023 2:38 PM CDT Images from the original note were not included. Respiratory Therapy Assess and Treat Protocol- [facility] Approved by: [facility]-Medical Executive Committee Approval Date: 06/07/2023 ORDERS ARE ENTERED ???PER PROTOCOL?? Enter the protocol in the patient???s electronic health record using smartphrase: .rtassessandtreatprotocol Respiratory Therapy orders: Requires a written order for Assess and Treat Protocol (RT41) or IP Consult to Respiratory Therapy (CON21) by the physician or the physician tube lancer. Oxygen desaturation studies (walk studies) must be ordered by the physician unless the IP Consult for Respiratory Therapy includes a statement requesting a walk study if necessary Bronchodilators will be ordered based on classifications CLASSIFICATION *COPD patients may use Ipratropium (Atrovent) *Asthma patients in Exacerbation may use Ipratropium (Atrovent) CLASS/SCORE FREQUENCY MDI AEROSOL HOME THERAPY Class 0/ 0-4 *If patient conditions worsens then reassess no therapy indicated Home Therapy orders can be adhered to as long as the severity score does not call for more therapy Class 1/ 5-8 *Reassess in 24 hrs. *Reassess in 96 hours hrs. after initial assessment *If pt. requests > 3 txs in 24 hours or condition worsens, then reassess. q6 PRN 2 puffs Albuterol 2.5mg Albuterol Class /- *Reassess in 24 hrs * Reassess in 96 hrs after initial assessment. *If patient condition worsens then reassess q6 or QID and q6 PRN 2puffs Albuterol 2.5mg Albuterol Class /- *Reassess in 24 hrs * Reassess in 96 hrs after initial assessment. *If patient condition worsens then reassess q4 and q4 PRN 2 puffs Albuterol 2.5 Mg Albuterol Class /- *Reassess in 24 hrs * Reassess in 96 hrs after initial assessment. *If patient condition worsens then reassess CONSULT PHYSICIAN for Escalation of Care Mode of Delivery The mode of medication delivery is determined by patient ability or patient request for a specific delivery device and ordered as MDI or Nebulizer. The method of delivery may be changed at any time at the discretion of the Respiratory Therapist based on patient need. The method of delivery is not based on the patient???s classification Metered Dose Inhaler (MDI) is administered when: High Flow Nebulizer (HFN) is administered when: a. Medication is available in an MDI a. Medication is not available in MDI b. Patient is alert, cooperative and able to follow commands/instructions b. Patient is unable to perform an MDI c. Patient is able to take a deep breath and perform a minimum of a 6 second breath hold c. Patientis not able to respond to a verbal command d. Patient demonstrates ability to use MDI with spacer effectively d. Patient???s home regimen is with a nebulizer and the Physician does not desire to change to a MDI e. Patient has existing tracheostomy or artificial airway. e. Patient receiving NIPPV and not able to be removed for MDI 4. Lung expansion or Airway clearance may be ordered with one of the following frequencies: TID or match the ordered bronchodilator therapy schedule or Q6 PRN if self-directed (RT feels the patient can perform without direction) following the algorithm below. Instructions General Purpose: The Assess & Treat protocol is made up of two branches; both branches of the protocol will be applied for every patient assessment performed. Adult Bronchodilation To provide assessment of patients receiving inhaled medications. To determine appropriate dosage, frequency, and mode of bronchodilator therapy. To assure that patients receive at least the equivalent of their respiratory home regimen. To identify patients who may require education in understanding how, when, or why they take their respiratory medications. Adult Airway Clearance & Lung Expansion To provide assessment of patients in need of airway clearance or lung expansion therapy. To provide various adjuncts to aid in mobilization of secretions and to treat atelectasis. To provide encouragement and aid in patient???s performance of deep breathing exercises. To guide the Respiratory Therapist through an algorithm that determines the best modality for that patient. In addition, each patient ordered into the Assess and Treat Protocol will be evaluated for patient education needs and oxygen desaturation evaluations (walk studies) that ideally need to be met priorto discharge Policy: 1. Requires a written order for Assess and Treat Protocol (RT41) or IP Consult to Respiratory Therapy (CON21) by the physician or the physician tube lancer. 2. Only licensed Respiratory Therapists will be permitted to assess patients using the standardizedRespiratory Assessment for the Assess & Treat Protocol. 3. A copy of the protocol will be placed in the electronic medical record. Respiratory Therapists are required to use the Assess & Treat Protocol flowsheet and worksheetsto provide appropriate communication between health care providers. An assessment note will also beplaced in the medical record outlining the encounter and treatment plan. Changes in mode, frequency, or dosage will be communicated to all appropriate personnel. The RT Assess and Treat Protocol should be ordered on all patients who received mechanical ventilation and are ready for transfer out of the ICU setting. CVICU patients will be enrolled after Extubation even if they are still in the CVICU. The Assess and Treat Protocol will allow for patients to continue home regimen medications as listed in their [employer] medication list as appropriate. Patients in [facility] and any other 23 hour observation unit who receive orders for inhaled medications via MDI will be changed to the liquid/ nebulizer form of the medication (as available) during their stay by the Respiratory Therapist per protocol. Oxygen desaturation studies (walk studies) must be ordered by the physician unless the IP Consult for Respiratory Therapy includes a statement requesting a walk study if necessary. To meet Medicare requirements, walk studies must be performed within 48 hours of discharge. Walk studies are not indicated for patients transitioning to a [place] [facility] facility, rehabilitation facility, or who have not required oxygen since admission unless otherwise specified by the physician. ASSESS AND TREAT PROTOCOL-ADULT BRONCHODILATION PROCEDURE Indications: Bronchospasm/wheezing (Reactive Airway Disease, Asthma, Emphysema, Chronic Bronchitis, Bronchiolitis) Current Home Bronchodilator usage including short-acting, long-acting, inhaled corticosteroid, anticholinergic, and combination respiratory medications. Other indications stated in the [place] [employer]???s Clinical Practice Guidelines, GOLD COPD Guidelines, and NHLBI Asthma Guidelines. Precautions: N/A Implementation: Scoring the Patient The Respiratory Therapist will evaluate and score the patient???s respiratory status prior to medication delivery using the protocol???s scoring worksheet (shown below). All patient assessment parameters listed below as ???Items?? are to be evaluated. Determine total score (???Findings?? ) based on total points earned from each respiratory item assessed. CLINICAL FINDING 0 1 2 3 4 POINTS BREATH SOUNDS Clear Diminished unilaterally Diminished bilaterally &/or crackles Absent unilaterally &/or wheezes or rhonchi Absent bilaterally, severely diminished or severe wheezing RESPIRATORY RATE RR 8-20 RR 21-25 RR26-30 RR 31-35 RR > 35 WORK OF BREATHING Regular pattern (NO Distress) Dyspnea on exertion, irregular RR pattern Increased at rest Use of Accessory muscles, prolonged expiration, conversational dyspnea Severe shortness of breath, accessory muscle usage, dyspnea at rest O2 REQUIREMENT NO Oxygen 1-3 Liters (FiO2 = 25-35%) 4-6 Liters (FiO2 = 35-50%) FiO2 = 50-90% FiO2 =90-100% PULMONARY HISTORY / STATUS NO History Pneumonia(uncomplicated) History of Pulmonary disease w/ admission for other reason Pulmonary impairment - Acute or chronic Severe Exacerbation Smoking history NO Smoking Past History of Smoking but has quit > 1 year Smoking history < 1 pack a day Smoking history > 1 pack a day Current smoker > 2 packs per day Classifying the Patient Patients are classified based on their admission diagnosis and the severity score determined by theprotocol???s standardized Respiratory Assessment. This mechanism determines their respiratory system status and the severity of symptoms. Based on this classification score the therapist determines the frequency of medication administration as well as how often they are reassessed. CLASSIFICATION *COPD patients may use Atrovent *Asthma patients in Exacerbation may use Atrovent CLASS/SCORE FREQUENCY MDI AEROSOL HOME THERAPY Class 0/ 0-4 *If patient conditions worsens then reassess no therapy indicated Home Therapy orders can be adhered to as long as the severity score does not call for more therapy Class 1/ 5-8 *Reassess in 24 hrs. *Reassess in 96 hours hrs. after initial assessment *If pt. requests > 3 txs in 24 hours or condition worsens, then reassess. q6 PRN 2 puffs Albuterol 2.5mg Albuterol Class /-12 *Reassess in 24 hrs * Reassess in 96 hrs after initial assessment. *If patient condition worsens then reassess q6 or QID and q6 PRN 2puffs Albuterol 2.5mg Albuterol Class /-18 *Reassess in 24 hrs * Reassess in 96 hrs after initial assessment. *If patient condition worsens then reassess q4 and q4 PRN 2 puffs Albuterol 2.5 Mg Albuterol Class /- *Reassess in 24 hrs * Reassess in 96 hrs after initial assessment. *If patient condition worsens then reassess CONSULT PHYSICIAN for Escalation of Care Asthma Exacerbation patients may have a Peak flow (PEFR), if patient is able, before and after every treatment Therapy effectiveness will be evaluated by pulmonary assessment and predicted/personal best values. For Asthma Exacerbation patients the dosage may be increased to 5 Mg Albuterol or 8 puffs Albuterol if 1st treatment does not improve breath sounds, PEFR, and patient???s subjective reportof symptom relief. Patients are reassessed per classification with all assessment parameters and given a new score. AnRCP can reassess as needed to manage the needs of the patient. Patients are to be maintained on their home regimen even if their score indicates treatments on a less frequent administration schedule. Patients continuing on Home Regimen will be reassessed after 96 hours and then no further reassessment will occur unless patient condition worsens. The Assess andTreat order may be completed at that time if the patient is being managed by their Heel Brusher. Determine Mode of Delivery using chart below. All MDI therapy will be taught with a spacing device. Mode of Delivery The mode of medication delivery is determined by patient ability or patient request for a specific delivery device. The method of delivery may be changed at any time at the discretion of the Respiratory Therapist based on patient need. The method of delivery is not based on the patient???s classification. Metered Dose Inhaler (MDI) is administered when: High Flow Nebulizer (HFN) is administered when: a. Medication is available in an MDI a. Medication is not available in MDI b. Patient is alert, cooperative and able to follow commands/instructions b. Patient is unable to perform an MDI c. Patient is able to take a deep breath and perform a minimum of a 6 second breath hold c. Patientis not able to respond to a verbal command d. Patient demonstrates ability to use MDI with spacer effectively d. Patient???s home regimen is with a nebulizer and the Physician does not desire to change to a MDI e. Patient has existing tracheostomy or artificial airway. e. Patient receiving NIPPV and not able to be removed for MDI 4)Considerations Review patient???s Prior to Admission ([employer]ER) medication list. The Respiratory Therapist will consider ordering any of the following meds based on the patient???s home regimen: Short and long-acting bronchodilators, inhaled corticosteroids, anticholinergics, and combination respiratory medications. Use of the preferred [facility] formulary equivalent should be ordered per Assess and Treat Protocol for use throughout the patients hospital stay. Patients diagnosed with a chronic lung disease, such as COPD or Asthma, will be evaluated for the benefit of a controller medication therapy (long-acting bronchodilators, inhaled corticosteroids, anticholinergics, and combination respiratory medications) if not already on the [employer] medication list. The Respiratory Therapist will contact the attending physician if a controller therapy may benefit the patient. Xopenex (Levalbuterol) Orders will be followed as below: See Pharmacy Policy, Section: APPROVED THERAPEUTIC INTERCHANGES FOR [facility] Title: Beta Agonists Patients taking home regimen Xopenex will continue with home regimen and at home frequency as long as there is an order from the physician that includes; do not substitute and rationale for need to use levalbuterol. An adverse reaction or hypersensitivity is demonstrated by a 20% increase in heart rate above baseline during or within 10 minutes of administration of albuterol or tremors/shakiness that is noted bythe therapist or reported by the patient that resolve with the use of Xopenex. If the patent demonstrates hypersensitivity to Albuterol, Xopenex will be used. Patients that score for PRN frequency will be given a PRN treatment with the initial assessment unless the patient refuses the therapy. Contact physician at any time for questions about patient? s assessment. i.e. Assessment score is > 16, unable to determine an assessment parameter, home regimen medications not included in protocol, changes in frequency or delivery method for other inhaled medications which do not include Albuterol or Ipratropium. A Medical Emergency Team may be considered at any time. Relative Contraindications: N/A ASSESS AND TREAT PROTOCOL-ADULT AIRWAY CLEARANCE & LUNG EXPANSION PROCEDURE A: Indications: To aid in the mobilization of retained secretions or for sputum retention not responsive to spontaneous or directed coughing. To treat atelectasis. To optimize delivery of bronchodilators in patients receiving bronchial hygiene therapy. For patients with decreased breath sounds or adventitious sounds suggesting secretions in the airway. For patients with abnormal chest x-ray consistent with atelectasis, mucus plugging, infiltrates, orpneumonia. Precautions: N/A Implementation: Gather patient???s objective data needed for pulmonary assessment to determine appropriate airway clearance or lung expansion intervention. Pulmonary assessment should include pulmonary history, co-morbidities, oxygen requirement, breath sounds, current chest X-ray (CXR), chest CT, patient???s ability to ambulate, the amount, color and quality of sputum being produced, laboratory data, cultures, and any other tests that are being ordered. CXR interpretation terms that require intervention for lung expansion or airway clearance include ???atelectasis?? , ???infiltrate?? , ???consolidation?? , or the suspicion of ???pneumonia?? . Assess patient???s ability to comply with specific optimal respiratory interventions such as: ability to effectively cough, , ability to follow directions, ability to independently perform interventions if applicable, ability to seal a mouthpiece, ability to tolerate specific therapies (such as a vest), and/or patient???s willingness to participate in optimal respiratory plan. Refer to the algorithm below to determine specific respiratory intervention(s) that apply to the patient. 5. Frequency of therapy will be TID or match the ordered bronchodilator therapy Schedule. Criteria for diagnosis of atelectasis (at least one): Radiological interpretation on chest x-ray. Terms to look for include ???infiltrates?? , ???consolidation?? , or ???atelectasis?? . High oxygen requirement. (FIO2 > .50 or flow > 10LPM per HFNC). Absent breath sounds over affected area. If patient is ambulatory, instruct patient in cough and deep breathing, and encourage ambulation. If patient is not ambulatory, use PEP device with or without mask for lung recruitment. Criteria for diagnosis of Pneumonia or for CXR/CT with terms ???infiltrates?? , or ???consolidation?? : Breath sounds that are rhonchi (coarse) that do not clear with cough. If patient has effective cough and is ambulatory, instruct patient in deep breathing and coughing. If patient has effective cough but needs assistance to mobilize sputum, consider IPV, vest or vibratory PEP therapy. If patient has a weak or ineffective cough, consider IPV, vest, or handheld mucous clearance device. If patient has muscular weakness, use Cough Assist and /or Quad Cough. Quad cough will be given on a PRN frequency, and may be used in conjunction with Cough Assist. If patient is unable to achieve a therapeutic benefit of sputum mobilization from these methods dueto the patient???s inability to participate in care, nasal tracheal suctioning may be ordered. Alsoconsider ordering a nasal trumpet to protect nasal passages if frequent suctioning is anticipated. Frequency of therapy will be TID or match the ordered bronchodilator therapy schedule. Therapy will be a minimum TID frequency for 24 hours unless patient is able to follow directions without coaching, demonstrates appropriate technique, and will use the device independently, if applicable. Handheld mucous clearance device, oscillatory PEP device will be ordered at a Q6 PRN frequencyfor patients that demonstrate both optimal technique, and ability for independent use. If there is no patient improvement, or patient does not tolerate chosen modality, choose another modality in the arm of the algorithm and reassess daily. After 48 hours of second modality and no patient improvement, consult the Physician. Criteria for evaluation of strong cough: Ability to take an adequate deep breath as defined above followed by ability to close glottis and produce an audible cough Assessment of Outcome: Change in sputum production; improved ease of clearing secretion, increased volume of secretions during and after treatments. Change in breath sounds - with effective therapy, breath sounds may clear or the movement of secretions into the larger airways may cause a change in breath sounds. Note an effect that coughing may have had on the breath sounds Patient subjective response to therapy. Change in chest x-ray - resolution or improvement of atelectasis and localized infiltrates may be slow or dramatic Relative Contraindications: The following should be carefully evaluated and the patient monitored during therapy. Patients unable to tolerate the increased work of breathing during procedures. Increased work of breathing may lead to hypoventilation and hypercarbia. Intracranial pressure (ICP) > 20 mmHg. may increase during therapy Hemodynamic instability may result in further cardiovascular compromise secondary to potential decreased venous return. Recent facial, oral, and skull surgery or trauma. Acute sinusitis. Epistaxis. Esophageal surgery (positive pressure not allowed, consult physician for vest therapy). Bariatric surgery (positive pressure not allowed, consult physician for vest therapy.) Hemoptysis. Nausea and/or air swallowing, with increased potential of vomiting and aspiration. Known or suspected tympanic membrane rupture or other middle ear pathology. Untreated pneumothorax, flail chest, pulmonary barotraumas. * Care Plan - Seth Swanson - 10/30/2023 1:00 PM CDT Patient:Zee Martinez Date of :1945 Request for pre certification of Post Acute services has been completed. Payer: Payor: [employer] MEDICARE ADVANTAGE / Plan: [employer] HMO MCR / Product Type: HMO / Level of Care approved: [facility] Authorization number: [id number] Facility Authorized: [facility] Date(s) of Service: 10/30/2023-11/01/2023 Number of days approved: 3 Additional notes: * Care Plan - Seth Swanson - 10/30/2023 11:08 AM CDT PATIENT: Zee Martinez 1945 Request for Post-Acute Services TRANSFER TO [facility] CLINICALS UPLOADED VIA [employer] Website PENDING [facility] REVIEW REF# [id number] Waiting on determination * Care Plan - Sarah Ballard MSW - 10/30/2023 10:06 AM CDT Patient:Zee Martinez Date of :1945 Request for pre certification of Post Acute Services Payer: Payor: [employer] MEDICARE ADVANTAGE / Plan: [employer] GOLD PLUS HMO MCR / Product Type: HMO / Level of Care being requested: SNF Reason for Post Acute Services: PT and OT Community Ambulator 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 Accepting Physician: Dr. Marilynn Gabriel Anticipated Discharge Date: 10/29 2 Therapies done within the last 24 hours?: yes Additional Notes: Diagnosis Code: Coronary artery disease I25.10 Atrial fibrillation (Chronic) I48.91 AUBREY Grullon Social Work I-IPCM AUBREY Grullon, 10/30/2023 10:08 AM Problem: Discharge Planning Goal: Identify discharge needs upon admission and through discharge Description: Outcome: Progressing * Care Plan - Sarah Ballard MSW - 10/30/2023 10:04 AM CDT JARRET met with pt at bedside to discuss discharge planning. JARRET explained accepting SNFs to pt. Pt chose to go with [facility] SNF. JARRET contacted Nicole, Lizet of [facility] SNF, and she reported she could accept pt and pt would need DA124 code and COVID19 test prior to d/c. JARRET submitted insurance authorization to insurance auth team. JARRET notified care team. DA124 CODE: AUBREY Grullon Social Work I-IPCM AUBREY Grullon, 10/30/2023 10:06 AM Problem: Discharge Planning Goal: Identify discharge needs upon admission and through discharge Description: Outcome: Progressing * Care Plan - Lo Deras Occupational Therapist - 10/30/2023 8:45 AM CDT Problem: Physical Mobility, Impaired Goal: Mobility goal: Improve transfer ability by discharge Description: Patient will transfer to/from toilet with modified independence. Outcome: Progressing Problem: Self-Care Deficit Goal: Self care goal: Improve dressing ability by discharge Description: Patient will require modified independence with upper extremity dressing without adaptive equipment while maintaining sternal precautions. Outcome: Progressing Flowsheets Taken 10/30/2023817 by Lo Deras Occupational Therapist Total Treatment Time (min): 24 OT Current Discharge Recommendation: Post acute care OT Treatment Start Time: 817 OT Treatment Stop Time: 841 Taken 10/29/2023 2200 by Chloé Barrera RN Location: incision Recommend: Post acute care (10/30/23817) Recommendations were made on today's assessment. Additional recommendations will be based on patient's progress in therapy. Equipment Recommended at discharge: Shower Chair with a back (10/23/23 1112) S: Patient agrees to therapy Pain rating: c/o 4-4.5/10 pain Pain intervention: Unneccessary movement avoided, Repositioned for comfort, RN aware Response to pain intervention: Verbalized relief, Appeared content O: Cognition/ Perception: Alert and oriented x 3-4 Weight Bearing: no UB pushing/ pulling/ lifting over 10# Precautions: Fall; STERNAL Skin Integrity: RN following Exercises: Bilateral UE AROM x 10 reps ---UE Exercises: Shoulder internal/external rotation, elbow flex/extension, pronation/supination, hand/wrist ROM. UE exercises to help improve pts strength, ROM and [place] with self care. FUNCTIONAL ACTIVITIES Grooming: setup at sink for hand hygiene UE Dressing: mod A gown adjust LE Dressing: max A sock adjust Toilet Transfer: close SBA/ min A sit/stand and close SBA/ min A stand pivot Functional mobility: min A supine to sit, min A scoot pivot, min A sit/stand at bedside, close SBA to min A for navigation in room>bathroom>hallway>chair- pt required 3 rest breaks throughout navigation- with SOB noted- encouraged pursed lip breathing and pt demos swaying forward and backward without device (while also c/o increasing back pain)- pt notes that she feels she would lean on the WWR- and declined use at this time [facility] Daily Activity How much help from another person does the patient currently need? Score 1. Putting on and taking off regular lower body clothing? 2 - A lot (max to mod assist) 2. Bathing (including washing, rinsing, drying)? 2 - A lot (max to mod assist) 3. Toileting, which includes using toilet, bedpan or urinal? 3 - A little (supervision to min assist) 4. Putting on and taking off regular upper body clothing? 2 - A lot (max to mod assist) 5. Taking care of personal grooming such as brushing teeth? 3 - A little (supervision to min assist) 6. Eating meals? 4 - None (independent) Total score 16/24 Scale: 1 - Total - requires total assistance, or cannot do at all 2 - A lot - requires a lot of help (max to mod assist), can use assistive devices 3 - A little - requires a little help (supervision, min assist) can use assistive devices 4 - None - does not require any help and does the activity independently, can use assistive devices Education: Pt was educated as to importance of OT and plan of care Positioning after tx: Pt was repositioned in bed Other: no family at bedside A: Response to treatment: tolerated all ROM, self care, mobility tasks P: Continue OT 2-5x/wk at bedside for: ADL Training, Functional Mobility Training, UE ROM/Strengthening, Patient Education, Cognition/Perception unless change in status or patient is discharged from the facility. Plan of Care developed, as indicated by OT assessment and patient's current status. Please refer to plan of care for updates on goals. Zone #: [id number] On weekends--please call [phone] * Care Plan - Chloé Barrera RN - 10/30/2023 5:47 AM CDT SPCU Shift Note Significant events No acute events overnight. Pain managed per AUG. Turning independently and ambulating up to bathroom with stand by assist. Disposition Transfer or discharge plan: discharge to rehab * Care Plan - Alma Delia Aviles, Vp Production - 10/29/2023 1:32 PM CDT Problem: Physical Mobility, Impaired Goal: Mobility goal: Improve transfer ability by discharge Description: Patient will transfer supine to sit and bed to/from chair with SBA Outcome: Progressing Goal: Mobility goal: Improve ambulation by discharge Description: Patient will ambulate 200 feet on level surface, using least restrictive assistive device, with Chad so patient can navigate discharge environment. Outcome: Progressing Flowsheets (Taken 10/29/2023 1332) Mon: X Location: back incision Pain Rating: Rest: 5 Pain Rating: Activity: 5 Pain Management Interventions: unnecessary movement avoided positioning Response to Interventions: content/relaxed Present Activity: up in sigala ambulating up to chair Total Treatment Time (min): 31 PT Current Discharge Recommendation: Post acute care PT Recommended DME: To be determined PT Treatment Start Time: 1332 PT Treatment Stop Time: 1413 Recommend: Post acute care (10/29/23 1332) Recommendations were made on today's assessment. Additional recommendations will be based on patient's progress in therapy. 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 Equipment to be issued at discharge: DME: To be determined (10/29/23 1332) S: Patient agreeable to therapy. Patient reported 4-5/10 back and incision pain during treatment. Patient stated that her son would only be available at night. Stated she has 8 stairs in her buildingand then there is an elevator. O: Cognition/ Perception: Alert and oriented x 4, pleasant and cooperative. Weight Bearing: no restrictions Skin Integrity: sternal incision, tele Precautions: Fall, sternal Exercises: Bilateral LE AROM x 10-15 reps, sitting Type: Sitting exercises: hip flexion, hip abduction/adduction, Long arc quads, gluteal sets, ankle pumps --LE exercises performed to increase ROM, increase strength, increase muscular endurance, prevent loss of joint mobility to promote independence with functional mobility and gait. Therapist providingnecessary assistance and/or cueing for proper mechanics and symptom management. Instructed patient to perform throughout the day MOBILITY ASSESSMENT Bed Mobility: patient seated in recliner pre and post therapy Transfers: sit <-> stand from recliner with use of cardiac pillow with close SBA for safety. Gait: Patient ambulated ~100 feet x 1 without assistive device with min assist of 1 for balance. Patient required 4-5 standing rest due to SOB. --Gait deviations: decreased gait speed, SOB Stairs: not performed due to SOB and fatigue [facility] Basic Mobility How much help from another person does the patient currently need? Score 1. Turning from your back to your side while in a flat bed without using bedrails? 3 - A little (supervision to min assist) 2. Moving from lying on your back to sitting on the side of a flat bed without using bedrails? 3 - A little (supervision to min assist) 3. Moving to and from a bed to a chair (including a wheelchair)? 3 - A little (supervision to min assist) 4. Standing up from a chair using your arms (e.g., wheelchair, or bedside chair)? 3 - A little (supervision to min assist) 5. Walking in hospital room? 3 - A little (supervision to min assist) 6. Climbing 3-5 steps with a railing? 1 - Total assist or cannot do at all Total score 16/24 Scale: 1 - Total - requires total assistance, or cannot do at all 2 - A lot - requires a lot of help (max to mod assist), can use assistive devices 3 - A little - requires a little help (supervision, min assist) can use assistive devices 4 - None - does not require any help and does the activity independently, can use assistive devices Education: benefits of therapy, gait, transfers, exercise and precautions Other: No visitors present during treatment. Patient able to ambulate increased distance but extremely SOB and fatigue noted. Patient would benefit from additional therapy for increased strength, endurance and balance to allow her to return to independent lifestyle. Positioning after tx: Patient seated in recliner with waffle cushion, BLE elevated. Chair alarm activated. Call light, phone and tray table within reach. RNKarma A: Response to treatment: Progressing towards goals, Assessment Ongoing P: Continue PT 3-5x/wk at bedside for Transfer training, Gait training, Exercises, Balance training, unless change in status or patient is discharged from the facility. Plan of Care developed, as indicated by PT assessment and patient's current status. Additional Discharge Information: none at this time Please refer to plan of care for updates on goals. Zone #: [id number] * Care Plan - Lo Deras Occupational Therapist - 10/29/2023 10:43 AM CDT Problem: Physical Mobility, Impaired Goal: Mobility goal: Improve transfer ability by discharge Description: Patient will transfer to/from toilet with modified independence. Outcome: Progressing Problem: Self-Care Deficit Goal: Self care goal: Improve dressing ability by discharge Description: Patient will require modified independence with upper extremity dressing without adaptive equipment while maintaining sternal precautions. Outcome: Progressing Flowsheets Taken 10/29/2023 1129 by Karma Palm RN Pain Rating: Rest: 4 Taken 10/29/2023 1043 by Lo Deras Occupational Therapist Mon: X Total Treatment Time (min): 42 OT Current Discharge Recommendation: Post acute care OT Treatment Start Time: 1043 OT Treatment Stop Time: 1125 Taken 10/29/2023 0641 by Kait Fajardo RN Location: abdomen region back Taken 10/27/2023 0750 by Natalie Fields Assistive Devices Used: Gait belt Taken 10/23/2023 1112 by Natalie Sorensen Occupational Therapist Therapy Plan of Care: 3-5x/wk Therapy Eval Date: 10/23/23 Therapy Comments: sternal Recommend: Post acute care (10/29/23 1043) Recommendations were made on today's assessment. Additional recommendations will be based on patient's progress in therapy. Equipment Recommended at discharge: Shower Chair with a back (10/23/23 1112) S: Patient agrees to therapy Pain rating: c/o 4/10 pain Pain intervention: Unneccessary movement avoided, Repositioned for comfort, RN aware Response to pain intervention: Verbalized relief, Appeared content O: Cognition/ Perception: Alert and oriented x 3-4 Weight Bearing: no UB pushing/ pulling/ lifting over 10# Precautions: Fall; STERNAL Skin Integrity: RN following Exercises: Bilateral UE AROM x 10 reps ---UE Exercises: Shoulder internal/external rotation, elbow flex/extension, pronation/supination, hand/wrist ROM. UE exercises to help improve pts strength, ROM and [place] with self care. FUNCTIONAL ACTIVITIES Grooming: setup at tray/ oral care- toothbrush/basin/toothpaste, min A to wash/rinse back, pt washed face/ arms/ neck/ chest and legs- with extra time and a few rest breaks to manage increased respirations UE Dressing: mod A gown adjust LE Dressing: max A socks Toilet Transfer: min A stand pivot, min A sit/stand Functional mobility: min A sit upright in chair- pt fatigued and laid back in chair, min A to sit upright in chair again, min A sit/stand, min A for navigation in room and hallway without device- as pt navigated 75 feet- demos increased forward head and neck posture at ~ [facility]- pt required one rest break during navigation in sigala- with increased respirations several times into 30s- encouraged pursed lip breathing exercises, min A stand pivot at chair and min A to sit at chair- pt demos increased respirations after all mobility [facility] AM-PAC Daily Activity How much help from another person does the patient currently need? Score 1. Putting on and taking off regular lower body clothing? 2 - A lot (max to mod assist) 2. Bathing (including washing, rinsing, drying)? 3 - A little (supervision to min assist) 3. Toileting, which includes using toilet, bedpan or urinal? 3 - A little (supervision to min assist) 4. Putting on and taking off regular upper body clothing? 2 - A lot (max to mod assist) 5. Taking care of personal grooming such as brushing teeth? 3 - A little (supervision to min assist) 6. Eating meals? 3 - A little (supervision to min assist) Total score 16/24 Scale: 1 - Total - requires total assistance, or cannot do at all 2 - A lot - requires a lot of help (max to mod assist), can use assistive devices 3 - A little - requires a little help (supervision, min assist) can use assistive devices 4 - None - does not require any help and does the activity independently, can use assistive devices Education: Pt was educated as to importance of OT and plan of care Positioning after tx: Pt was repositioned in bed Other: no family at bedside A: Response to treatment: tolerated all ROM, self care, mobility tasks P: Continue OT 2-5x/wk at bedside for: ADL Training, Functional Mobility Training, UE ROM/Strengthening, Patient Education, Cognition/Perception unless change in status or patient is discharged from the facility. Plan of Care developed, as indicated by OT assessment and patient's current status. Please refer to plan of care for updates on goals. Zone #: [id number] On weekends--please call [phone] * Care Plan - Kait Fajardo RN - 10/29/2023 5:40 AM CDT Problem: Pain, Potential/Actual Goal: Verbalizes/displays acceptable comfort level or baseline comfort level Description: Outcome: Progressing Problem: Safety/Fall Goal: Safety/Fall: Absence of fall, injury, harm during hospitalization Description: Outcome: Progressing Problem: Mobility Goal: Absence of/Reduce Fall Risk r/t Mobility Deficits Description: Patient is a fall risk because of mobility deficits. A patient with mobility deficits is automatically at high risk for falls. Potential Interventions: 1. Schedule patient toileting to avoid emergency trips to the bathroom 2. If available, use floor mats next to bed or in front of chair when up 3. If applicable, remove floor mats when getting patient up and replace when leaving patient 4. Assistive devices as required, educate patient on correct use of device (walkers, shower chairs,lift equipment, etc.) 5. Exit bed on patient's strongest side 6. Gait belt easily accessible 7. Activate bed or chair alarm while in bed or up in chair 8. Get order for PT consult if appropriate 9. Patient requires 2 assist - bedpan and bed bath if 2 staff not available, bedside commode if 2 staff are available entire time 10. Slow progressive position changes if patient experiencing dizziness Outcome: Progressing Problem: Mental Status/LOC/Awareness Goal: Absence of/Reduce Fall Risk r/t Mental Status/LOC/Awareness Description: Patient is a fall risk because of mental status. A patient with altered mental status is automatically at high risk for falls. Potential Interventions: 1.Hourly rounding 2. Do not leave patient unattended while toileting or showering 3. If patient is lethargic/unable to follow directions - use bedpan 4. Place patient close to nurse's station if possible 5. Provide appropriate diversion activities (i.e. - coloring, crosswords, activity blanket, towel folding, books) 6. Activate bed or chair alarm while in bed or up in chair 7. Encourage family to stay with patient 8. Frequent fall reeducation and reorientation 9. Specialty low bed 10. Use floor mats next to bed and in front of chair when patient left unattended 11. Collaborate with care team regarding how to determine reversible causes of mental status changeand eliminate cause 12. Patient sitter 13. Appropriate lighting for day/night Outcome: Progressing * Care Plan - Kait Fajardo RN - 10/27/2023 4:48 AM CDT Problem: Safety/Fall Goal: Safety/Fall: Absence of fall, injury, harm during hospitalization Description: Outcome: Progressing Problem: Mobility Goal: Absence of/Reduce Fall Risk r/t Mobility Deficits Description: Patient is a fall risk because of mobility deficits. A patient with mobility deficits is automatically at high risk for falls. Potential Interventions: 1. Schedule patient toileting to avoid emergency trips to the bathroom 2. If available, use floor mats next to bed or in front of chair when up 3. If applicable, remove floor mats when getting patient up and replace when leaving patient 4. Assistive devices as required, educate patient on correct use of device (walkers, shower chairs,lift equipment, etc.) 5. Exit bed on patient's strongest side 6. Gait belt easily accessible 7. Activate bed or chair alarm while in bed or up in chair 8. Get order for PT consult if appropriate 9. Patient requires 2 assist - bedpan and bed bath if 2 staff not available, bedside commode if 2 staff are available entire time 10. Slow progressive position changes if patient experiencing dizziness Outcome: Progressing Problem: Mental Status/LOC/Awareness Goal: Absence of/Reduce Fall Risk r/t Mental Status/LOC/Awareness Description: Patient is a fall risk because of mental status. A patient with altered mental status is automatically at high risk for falls. Potential Interventions: 1.Hourly rounding 2. Do not leave patient unattended while toileting or showering 3. If patient is lethargic/unable to follow directions - use bedpan 4. Place patient close to nurse's station if possible 5. Provide appropriate diversion activities (i.e. - coloring, crosswords, activity blanket, towel folding, books) 6. Activate bed or chair alarm while in bed or up in chair 7. Encourage family to stay with patient 8. Frequent fall reeducation and reorientation 9. Specialty low bed 10. Use floor mats next to bed and in front of chair when patient left unattended 11. Collaborate with care team regarding how to determine reversible causes of mental status changeand eliminate cause 12. Patient sitter 13. Appropriate lighting for day/night Outcome: Progressing Problem: Toileting Needs Goal: Absence of/Reduce Fall Risk r/t Toileting Needs Description: Patient is a fall risk because of toileting needs (i.e. - IV fluids, UTI, diuretics, frequency, diarrhea). Potential Interventions: 1. Schedule toileting at frequent intervals based on patient's needs (i.e. - hourly, every 2 hours) 2. Frequent rounding between toileting 3. Bedside Commode 4. Activate bed or chair alarm while in bed or up in chair 5. Encourage male patients to use urinal 6. Educate patient on fall risk, use of grab bars, and to call for assistance 7. Assess length of IV and/or O2 tubing if applicable 8. Use bedpan or lift equipment if patient also has other fall risk factors (i.e. - mobility) Outcome: Progressing Problem: Peripheral Neurovascular Goal: Achieve optimal peripheral neurovascular function by discharge or maintain baseline function Outcome: Progressing Problem: Respiratory Goal: Achieve optimal respiratory function by discharge and/or maintain baseline function Outcome: Progressing Problem: Cognitive/Perceptual/Neuro Goal: Achieve optimal cognitive/perceptual/neurological function by discharge or maintain baseline function Outcome: Progressing Problem: Communication/Sensory Goal: Absence of/Reduce Fall Risk r/t Communication/Sensory Description: Patient is a fall risk due to sensory or communication issues. Potential Interventions: 1.Use alternative communication devices wherever necessary and when available (i.e. - picture board, note pad and pen, etc) 2. HARD METALS HAND ENGRAVER referral if applicable 3. Provide education in patient's primary language. Obtain deaf interpreter and appropriate written materials. If patient refuses deaf interpreter services have refusal waiver signed 4. Patients with visual deficits - place belongings and call light within field of vision, maintainsame setup in surroundings, narrate setup and activities to patient, provide necessary visual aids (i.e. Glasses) 5. Patients with hearing deficits - have patient repeat teaching back to ensure understanding 6. Patients with neuropathy - use appropriate assistive devices to aid mobility, and/or use appropriate footwear 7. Slow progressive position changes if patient experiencing dizziness Outcome: Progressing Problem: Behavior Goal: Absence of/Reduce Fall Risk r/t Behavior Description: Potential Interventions: 1. Specialty low bed 2. Use floor mats next to bed and in front of chair when patient left unattended 3. Engage patient in daily routine/activity 4. Provide appropriate diversion activities (i.e. - coloring, crosswords, activity blanket, towel folding, books) 5. Alcohol withdrawal protocol/CIWA assessment as ordered 6. Encourage family to stay with patient 7. Use appropriate de-escalation techniques 8. Consulting pharmacy to review meds and make recommendations (determine best timing, possible dosing adjustments, or identify other education that might be appropriate for patient) 9. Utilize relaxation channel to soothe patient 10. Patient sitter 11. Appropriate lighting for day/night Outcome: Progressing * Care Plan - Maryann Deutsch RN - 10/26/2023 3:37 PM CDT Therapy and team are recommending SNF at discharge. This CM met with patient and her son. He statesthat he works store group manager and is not able to be home with patient 08/01 to provide care. WE discussed SNF options and patient gave a few choices. We discussed that if she does not have accepting facility with current referrals that choices will need to be extended. Patient and son are agreeable with plan. This CM remains involved with discharge planning. Maryann Deutsch RN, BSN [place] [phone] Problem: Discharge Planning Goal: Identify discharge needs upon admission and through discharge Description: Outcome: Progressing * Therapy Treatment - Natalie Sorensen, Occupational Therapist - 10/26/2023 1:59 PM CDT 5/10/24: attempted to see pt for OT treatment. Pt reports recently using BSC and fatigued. Pt request to rest and that therapy come back. Will continue to follow and re-attempt later this date if time allows. Thank you, [phone] * Care Plan - Lori Ghotra, Physical Therapist - 10/26/2023 10:00 AM CDT Problem: Physical Mobility, Impaired Goal: Mobility goal: Improve transfer ability by discharge Description: Patient will transfer supine to sit and bed to/from chair with SBA Outcome: Progressing Flowsheets (Taken 10/26/2023 1000) Assistive Devices Screening: Gait belt Assistive Devices Used: Gait belt Present Activity: ambulating up in room up to chair Physical Assist/Nonphysical Assist: w/ 1 person assist Goal: Mobility goal: Improve ambulation by discharge Description: Patient will ambulate 200 feet on level surface, using least restrictive assistive device, with Chad so patient can navigate discharge environment. Outcome: Progressing Flowsheets (Taken 10/26/2023 1000) Assistive Devices Screening: Gait belt Assistive Devices Used: Gait belt Present Activity: ambulating up in room up to chair Physical Assist/Nonphysical Assist: w/ 1 person assist Recommend: Home with assistance;Home with 24-hour supervision;Home with home health PT (10/26/23 1000) Recommendations were made on today's assessment. Additional recommendations will be based on patient's progress in therapy. Equipment to be issued at discharge: DME: To be determined (10/26/23999) S: Patient agreeable to therapy. Notes 4/10 pain as well as minor lightheadedness, improved with standing, BP stable throughout. Pt received supine in bed and connected to telemetry, SPo2 monitor, lockwood. O: Cognition/ Perception: Alert and oriented x 4 Weight Bearing: No restrictions Skin Integrity: See RN notes for assessment of sternal incision Precautions: Fall, sternal MOBILITY ASSESSMENT Bed Mobility: Chad for supine >sitting EOB, pt able to progress BLEs to EOB, min assist to bringBLEs off EOB and modA to scoot hips to EOB secondary to texture of mattress against skin and no bedsheet. Chad to achieve trunk upright. Verbal cues throughout for sternal precaution maintenance and use of cardiac pillow Transfers: Chad for STS with WWR, Verbal cues for hand placement and use of cardiac pillow for maintenance of sternal precautions. No LOB. Chad for steadying assist for standing Gait: Chad for ambulating 40 feet in room x2 attempts without device. Progressed to close SBA for 2nd trial of ambulation. Slow guarded step through gait, Verbal cues for step length, upright posture, forward gaze. Pt fatigued after first 40 feet, required seated rest break before ambulating again in room. No LOB however Chad to close SBA for steadying assist as pt verbalized feeling slightly offbalance. Recommended trialing WWR for mobility and pt agreeable to trial next session as she was fatigued after ambulating 2 trials. --Gait deviations: decreased step length, decreased heel strike, decreased carrie, forward flexed posture [facility]-P[facility] Basic Mobility How much help from another person does the patient currently need? Score 1. Turning from your back to your side while in a flat bed without using bedrails? 2 - A lot (max to mod assist) 2. Moving from lying on your back to sitting on the side of a flat bed without using bedrails? 2 - A lot (max to mod assist) 3. Moving to and from a bed to a chair (including a wheelchair)? 3 - A little (supervision to min assist) 4. Standing up from a chair using your arms (e.g., wheelchair, or bedside chair)? 3 - A little (supervision to min assist) 5. Walking in hospital room? 3 - A little (supervision to min assist) 6. Climbing 3-5 steps with a railing? 1 - Total assist or cannot do at all Total score 14/24 Scale: 1 - Total - requires total assistance, or cannot do at all 2 - A lot - requires a lot of help (max to mod assist), can use assistive devices 3 - A little - requires a little help (supervision, min assist) can use assistive devices 4 - None - does not require any help and does the activity independently, can use assistive devices Education: PT POC and role of PT Positioning after tx: Patient positioned up in chair with chair alarm on/patient educated on alarm,all lines intact, call light in reach, all needs met, heels floated, RN aware A: Response to treatment: Progressing towards goals P: Continue PT 3-5x/wk at bedside for Transfer training, Gait training, Exercises, Balance training, unless change in status or patient is discharged from the facility. Plan of Care developed, as indicated by PT assessment and patient's current status. Please refer to plan of care for updates on goals. Zone #: [id number] Lori Ghotra, PT, DPT * Care Plan - Valerie Clement GN - 10/26/2023 7:56 AM CDT CVICU Shift Note Significant shift events : Patient rested well overnight, no acute events. C/O some pain, controlled with tylenol. NSR throughout shift. UOP adequate. * Care Plan - Trish Ngo RN - 10/25/2023 6:04 PM CDT Patient up to chair for meals today. Ambulated in sigala with RN. Complaints of pain treated with scheduled Tylenol and PRN oxycodone x1. No acute events. HR 70-90 NSR SBP 110's-150 RA No skin issues noted. Q2 turns implemented. * Care Plan - Yancy Orantes RN - 10/25/2023 11:42 AM CDT Problem: Discharge Planning Goal: Identify discharge needs upon admission and through discharge Description: Outcome: Progressing Care Management Initial Assessment Initial Discharge Planning Assessment completed. Discussed Care Management's role and Discharge planning. Discharge Plan: Does the patient have family and/or a caregiver that is willing, able and available to assist if needed? Yes - Name/Relation:Rylan novoa Comments: Patient lives alone, but sonRylan, will be staying with her at discharge. Patient does not have a WWR. [facility] has been ordered. Patient lives in [place], outside of the [facility] service area. Referrals sent to [facility]. Patient Discharge Planning Goal: home Patient will potentially discharge to a SNF/NH? Yes, [place] Education level and occupation: (if retiredor disabled, list prior occupation) If patient will go to SNF/NH at discharge, consider if a LEVEL II PASRR screening should be startedfor: Mental Health (prior admission or problems in level of functioning related to MH diagnosis): no Is the individual known or suspected to have a diagnosis of Intellectual Disability that originatedprior to age 18? no Related Condition (examples: seizure disorder, cerebral palsy, spina bifida, autism) prior to age 22: no Any YES answer above requires a LEVEL II PASRR screening. Care Management visited with: patient via in person. Prior to admission, patient resides at: own home. Patient resides in a one story home with no stairs to enter. Condo with elevator access. Patient's bedroom and bathroom are located on the main floor. Prior to admission, living arrangements: lives alone. Prior to admission, patient's functional level:independent; uses N/A for mobility; needs assistancewith iADLs: N/A Community Ambulator: yes Prior to admission, the patient has the following DME? N/A Services in the home/community: none Serviced by n/a Receives hemodialysis? No Emergency contact(s): Extended Emergency Contact Information Primary Emergency Contact: RYLAN MARTINEZ Mobile Relation: Son Preferred language: Cypriot Heavy Line Technician needed? No Secondary Emergency Contact: ASHANTI SEAMAN Mobile Relation: Granddaughter Preferred language: Cypriot Heavy Line Technician needed? No Prescription coverage: yes Preferred Pharmacy verified: [facility][id number] - [place], [place] - [address] [facility] MAIL DELIVERY - [facility] [id number] Insurance coverage verified: Payor: HU[employer]NA MEDICARE ADVANTAGE / Plan: HU[employer]NA GOLD PLUS HMO MCR / Product Type: HMO / Secondary Insurance:N/A Medicaid Status: NA Has VA Benefits: no Employment Status: retired PCP verified as: Aliza Bain MD Patient has not had a stay at an acute care hospital in the last 30 days. Recent Falls?: Last Known Fall: No falls Plan for transportation at discharge: son Care Management contact information provided. Care Management will continue to follow and assist asneeded. Yancy Orantes RN Care Manager [phone] cell [phone] office * Care Plan - Jermain Carlisle RN - 10/25/2023 11:42 AM CDT Discharge teaching started with patient. Discussed restrictions after surgery. Discussed follow-up appointments. Patient is up in the chair. Will have floor staff obtain IS for patient. [facility] has been ordered for patient. * Care Plan - Enrico Mendoza RN - 10/25/2023 8:50 AM CDT Cardiac Rehab Phase 1: The follow topics were addressed and [facility] packet/folder provided; [] [place] [] CAD [] Heart Disease/Lifestyle Modification [] CHF [x] CABG [] Valve SX Cardiac Rehab Phase 1-Visited with Pt at this time. Discussed with Pt coronary artery anatomy and physiology related to angina and coronary artery bypass grafting (CABG). [facility] Heart disease/lifestyle modification literature packet given and reviewed with patient. Signs and symptoms of angina discussed and the importance of routine following up with feltmaker and weigher reviewed. Risk factors for heart disease discussed. The importance of a diet of low sodium, low fat, low cholesterol, and limit caffeine reviewed with Pt. The benefits of routine exercise and Outpatient cardiac rehab program at [facility] discussed. Outpatient cardiac rehab resource site location sheet reviewed with Pt. Pt verbalized understanding. The importance of recognizing stress and the healthy way to manage stress discussed. Use of deep breathe cough encouraged. Pt has PT/OT ordered. [x]Discussed OP Cardiac Rehab Program of monitored exercise and education. Outpatient Cardiac Rehab referral was sent for [place] [phone].. Additional literature given to Pt-. [facility]- Manage Cholesterol the Basics, [facility] - Get Tough on Angina [facility] -Managing the Stresses of Daily Life, [facility]-Eating with your Heart in Mind, [facility]-Exercise for Life, [facility] Handout - Taking Care of Your Heart at Home, [facility] - Handout What is Coronary Bypass Surgery , How Can I Lower High Cholesterol?, Your Heart and How it works,How Can I Cook Healthfully?, How Do I follow and Healthy diet?, [facility] Cardiac Rehabilitation brochure given and location resource guide for Outpatient cardiac rehab facilities given. * Care Plan - Lori Ghotra, Physical Therapist - 10/25/2023 8:10 AM CDT Problem: Physical Mobility, Impaired Goal: Mobility goal: Improve transfer ability by discharge Description: Patient will transfer supine to sit and bed to/from chair with SBA Outcome: Progressing Flowsheets (Taken 10/25/2023809) Assistive Devices Screening: Gait belt Assistive Devices Used: Gait belt Present Activity: ambulating standing Physical Assist/Nonphysical Assist: w/ 1 person assist Problem: Physical Mobility, Impaired Goal: Mobility goal: Improve ambulation by discharge Description: Patient will ambulate 200 feet on level surface, using least restrictive assistive device, with Chad so patient can navigate discharge environment. Flowsheets (Taken 10/25/2023809) Assistive Devices Screening: Gait belt Assistive Devices Used: Gait belt Present Activity: ambulating standing Physical Assist/Nonphysical Assist: w/ 1 person assist Recommend: Home with assistance;Home with 24-hour supervision;Home with home health PT;To be determined (10/25/23809) Recommendations were made on today's assessment. Additional recommendations will be based on patient's progress in therapy. Equipment to be issued at discharge: DME: To be determined (10/25/23809) S: Patient agreeable to therapy. Notes 4-6/10 pain throughout mobility. Pt received supine in bed and connected to telemetry, SPo2 monitor, lockwood. O: Cognition/ Perception: Alert and oriented x 4 Weight Bearing: No restrictions Skin Integrity: See RN notes for assessment of sternal incision Precautions: Fall, sternal MOBILITY ASSESSMENT Bed Mobility: Chad for supine>sitting EOB, pt able to progress BLEs to EOB, Chad to achieve trunk upright, Verbal cues for maintenance of sternal precautions, pt holding cardiac pillow Transfers: Chad for STS and Stand pivot transfer to chair without device, holding cardiac pillow. Verbal cues for anterior lean and maintenance of sternal precautions. Chad for steadying assist to stand as pt with slight instability with standing initially. No LOB. Good eccentric control to sit Gait: Chad for ambulating 5 feet in room x2 trials without device, pt holding cardiac pillow. Verbal cues for upright posture and step length. Pt declined further ambulation secondary to sternal pain. --Gait deviations: decreased step length, narrow SHIELA, decreased heel strike, decreased carrie Stairs: pt does not perform at baseline [facility] AM-PAC Basic Mobility How much help from another person does the patient currently need? Score 1. Turning from your back to your side while in a flat bed without using bedrails? 2 - A lot (max to mod assist) 2. Moving from lying on your back to sitting on the side of a flat bed without using bedrails? 2 - A lot (max to mod assist) 3. Moving to and from a bed to a chair (including a wheelchair)? 3 - A little (supervision to min assist) 4. Standing up from a chair using your arms (e.g., wheelchair, or bedside chair)? 3 - A little (supervision to min assist) 5. Walking in hospital room? 3 - A little (supervision to min assist) 6. Climbing 3-5 steps with a railing? 1 - Total assist or cannot do at all Total score 14/24 Scale: 1 - Total - requires total assistance, or cannot do at all 2 - A lot - requires a lot of help (max to mod assist), can use assistive devices 3 - A little - requires a little help (supervision, min assist) can use assistive devices 4 - None - does not require any help and does the activity independently, can use assistive devices Education: PT POC and role of PT Positioning after tx: Patient positioned up in chair with chair alarm on/patient educated on alarm,all lines intact, call light in reach, all needs met, heels floated, RN aware A: Response to treatment: Progressing towards goals P: Continue PT 3-5x/wk at bedside for Transfer training, Gait training, Exercises, Balance training, unless change in status or patient is discharged from the facility. Plan of Care developed, as indicated by PT assessment and patient's current status. Please refer to plan of care for updates on goals. Zone #: [id number] Lori Ghotra, PT, DPT * Care Plan - Maryann Scott RN - 10/24/2023 2:22 PM CDT Cardiac Rehab Phase 1: Reviewed Epic notes. Pt remains in CVICU s/p CABG on 10/22/23. This morning was hypotension and bradycardia with decrease urine output, then went into AFib. Attempted to see pt presently but is sleeping soundly. Will follow. * Therapy Evaluation - Lori Ghotra Physical Therapist - 10/24/2023 8:59 AM CDT Physical Therapy order received, chart reviewed, and evaluation completed. Please see full evaluation below for details. Daily PT notes will be located in Care Plan notes. Thank You. PT INITIAL EVALUATION Reason for Admission: s/p CABG Ordered by: BETHANY Schaefer Activity Order: activities as tolerated Weight Bearing Status: No restrictions Precautions: Fall; PMH: Past Medical History: Diagnosis Date Arthritis Dyspnea on exertion GERD (gastroesophageal reflux disease) HTN (hypertension) Hx of degenerative disc disease Injury of back DDD Malignant neoplasm of lung Recommend: Home with assistance;Home with 24-hour supervision;Home with home health PT (10/24/23858) Recommendations were made on today's assessment. Additional recommendations will be based on patient's progress in therapy. Equipment to be issued at DC: To be determined (10/24/23 08) S: Patient agreeable to therapy. Patient reports 3-6/10 pain. 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 Pt lives alone but states her son will be staying with her at d/c but works throughout the day. 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 Ambulated HH and community distances without device, no falls. Home Equipment: None O: Appearance: 78 year old female, received supine in bed, connected to telemetry, SPo2 monitor, lockwood, central line. Cognition/Perception: A/O x4, follows 2 step commands Skin Integrity: See RN notes for assessment of sternal incision ROM: Bilateral Lower Extremity WFL Muscle Tone: WFL Strength: Bilateral Lower Extremity grossly 4/5 Sensation: .mmsen MOBILITY ASSESSMENT: Bed Mobility: Chad for supine>sitting EOB, pt able to initiate progression of BLEs to EOB, Chad to fully bring BLEs off EOB and to achieve trunk upright. Pt sat EOB with SBA. Verbal cues for maintenance of sternal precautions and use of cardiac pillow Transfers: Chad for STS without device, pt holding cardiac pillow. Chad for steadying assist to stand and Verbal cues for anterior lean to stand successfully. Chad for Stand pivot transfer to chair holding cardiac pillow. No LOB Gait: Unable to progress at current functional level secondary to pain Balance: static sitting and standing good, standing dynamic fair while transferring [facility] Basic Mobility How much help from another person does the patient currently need? Score 1. Turning from your back to your side while in a flat bed without using bedrails? 2 - A lot (max to mod assist) 2. Moving from lying on your back to sitting on the side of a flat bed without using bedrails? 2 - A lot (max to mod assist) 3. Moving to and from a bed to a chair (including a wheelchair)? 3 - A little (supervision to min assist) 4. Standing up from a chair using your arms (e.g., wheelchair, or bedside chair)? 3 - A little (supervision to min assist) 5. Walking in hospital room? 3 - A little (supervision to min assist) 6. Climbing 3-5 steps with a railing? 1 - Total assist or cannot do at all Total score 14/24 Scale: 1 - Total - requires total assistance, or cannot do at all 2 - A lot - requires a lot of help (max to mod assist), can use assistive devices 3 - A little - requires a little help (supervision, min assist) can use assistive devices 4 - None - does not require any help and does the activity independently, can use assistive devices Patient/Family Education: PT POC and role of PT Positioning after tx: Patient positioned up in chair with chair alarm on/patient educated on alarm,all lines intact, call light in reach, all needs met, heels floated, RN aware A: Disabilities: Decreased strength, impaired balance, decreased independence with functional mobility, decreased activity tolerance, Assessment: Pt presents with the above listed impairments and would benefit from continued skilled PT in-house to address goals to improve independence in order to facilitate safe D/C home. Clinical Presentation: Stable and/or uncomplicated EVALUATION COMPLEXITY: Low Complexity -These findings are based on patient's self reporting, therapist's objective findings and professional determinations. P: PT to see patient: At bedside 3-5x/wk. Will continue therapy unless patient has a change in status or patient is discharged from the facility. Plan of Care developed, as indicated by PT assessmentand patient's current status. Treatment Plan: Patient to be seen for Transfer training, Gait training, Exercises, Balance training Recommendations: For: Patient, Nursing --OOB to chair with chair alarm, with assist Equipment to be issued at DC: To be determined (10/24/23 0859) --Patient involved in goal setting: yes Patient goals will be found in the Care Plan section of the medical chart. Zone #: [id number] Lori Ghotra, PT, DPT On weekends--please call [phone] * Therapy Evaluation - Natalie Sorensen, Occupational Therapist - 10/23/2023 11:12 AM CDT Occupational Therapy order received, chart reviewed, and evaluation completed. Please see full evaluation below for details. Daily OT notes will be located in Care Plan notes. Thank You. OT INITIAL EVALUATION Reason for Admission: CABG x3 Ordered by: PRABHJOT Schaefer Activity Order: ambulate with assist Weight Bearing Status: no restrictions Precautions: Fall; sternal PMH: Past Medical History: Diagnosis Date Arthritis Dyspnea on exertion GERD (gastroesophageal reflux disease) HTN (hypertension) Hx of degenerative disc disease Injury of back DDD Malignant neoplasm of lung Recommend: Home with 24-hour supervision;Home with assistance;Home with Home Health OT (10/23/23 8517) Recommendations were made on today's assessment. Additional recommendations will be based on patient's progress in therapy. Equipment needed at DC: Shower Chair with a back (10/23/23 1112) S: Patient agreeable to therapy. Patient reports 8/10 pain. 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 Prior to admission, pt was independent in all ADLs/IADls and functional mobility. Home Equipment: walk-in shower. O: Appearance: 78 year old female, supine in bed connected to telemetry, JOSE drain and catheter. Vision: pt denies double/blurry vision Cognition/Perception: Aox4, pleasant, cooperative, able to follow commands UE ROM: WFL Muscle Tone: WFL UE Strength: WFL Coordination: right Hand Dominant: WFL Sensation:Bilateral UE grossly intact to light touch. Skin Integrity: No signs of skin breakdown noted FUNCTIONAL ACTIVITIES ASSESSMENT: Feeding: pt able to bring hand to mouth. Grooming: supervision to wash face sitting in recliner with set-up. UE Dressing: pt gowned prior to OT arrival. LE Dressing: dependent to don socks supine in bed. Toilet Transfer: not assessed d/t fatigue. Tub/Shower Transfer: not assessed, pt reports having walk-in shower at home. Functional Mobility: Mod A supine to sit EOB with assistance to elevate trunk hugging heart pillow.Min A to scoot hips to EOB. SBA for static sitting balance. Min A sit to stand from EOB with frontal assistance, rocking for momentum and hugging heart pillow. Min A to ambulate ~3-5 ft from EOB to recliner with frontal assistance. Min A stand to sit in recliner with frontal assistance and hugging heart pillow. [facility] AM-PAC Daily Activity How much help from another person does the patient currently need? Score 1. Putting on and taking off regular lower body clothing? 3 - A little (supervision to min assist) 2. Bathing (including washing, rinsing, drying)? 3 - A little (supervision to min assist) 3. Toileting, which includes using toilet, bedpan or urinal? 3 - A little (supervision to min assist) 4. Putting on and taking off regular upper body clothing? 3 - A little (supervision to min assist) 5. Taking care of personal grooming such as brushing teeth? 3 - A little (supervision to min assist) 6. Eating meals? 3 - A little (supervision to min assist) Total score 18/24 Scale: 1 - Total - requires total assistance, or cannot do at all 2 - A lot - requires a lot of help (max to mod assist), can use assistive devices 3 - A little - requires a little help (supervision, min assist) can use assistive devices 4 - None - does not require any help and does the activity independently, can use assistive devices Positioning after tx: Pt sitting in recliner, LE elevated, chair alarm on, call light in reach, alllines intact, RN aware. Patient/Family Education: Purpose of OT, OT POC, ADLs, functional mobility, safe transfers, UE exercises. A: Disabilities: Pt presents with decreased endurance, UE strength and ROM, safety awareness, and decrease independence in ADLs and functional mobility. Assessment: Pt would benefit from skilled OT services to address deficits listed above and increased independence in ADLs and functional mobility. EVALUATION COMPLEXITY: Low Complexity -These findings are based on patient's self reporting, therapist's objective findings and professional determinations. P: OT to see patient: 3-5x/wk at bedside Treatment: OT to see patient for: ADL Training, Functional Mobility Training, UE ROM/Strengthening,Patient Education, Cognition/Perception Will continue therapy unless patient has a change in statusor patient is discharged from the facility. Additional Discharge Information: TBD --Patient involved in goal setting: yes Patient goals will be found in the Care Plan section of the medical chart. Zone #: [id number] On weekends--please call [phone] * Therapy Evaluation - Brandee Cole, Physical Therapist - 10/23/2023 11:10 AM CDT PT orders received. Attempted to see pt for PT eval twice today. At 1002 pt having lines pulled andwill be BR for 1 hour. At 1110 pt working with OT. Will continue to follow. [phone] * Care Plan - Maryann Scott RN - 10/23/2023 8:58 AM CDT Cardiac Rehab: Recieved order, reviewed Epic notes, s/p CABG yesterday, will follow. * Care Plan - Chloé Burks RN - 10/22/2023 6:22 PM CDT Images from the original note were not included. Patient arrived to CVICU room 4090 via bed from [facility]. Patient accompanied by: Dr. Stroud and student anesthesia and Olive RICK. Patient arrived being bagged by anesthesia and connected to ventilator via RT. Settings as noted per flow sheet. Patient connected to bedside monitor and PA catheter connected to continuous cardiac output machine. Initial ECG rhythm Normal sinus. Initial Cardiac Index2.2. Patient arrived on the following continuous IV infusions: propofol.Arterial line leveled and zeroed with good square wave formation and waveforms. Arterial line left radial location. Mediastinalchest tubes placed to -20 cmH2O with no presence of an air leak. Sammy drain compressed with no pres ence of an air leak noted. OG inserted and placed to low intermittent suction. Placement verified by auscultation and CXR. Full report received from Dr. Stroud and student anesthesia. Full assessment completed as per DOC Flow sheet. [facility] Adult IV Flush Protocol [facility] Approved by: [facility] - Medical Executive Committee Approval Date: 11/02/2022 ORDERS ARE ENTERED ???PER PROTOCOL?? Enter the protocol in the patient's electronic health record using smartphrase: .adultivflushprotocol NURSING ORDERS Ok to utilize existing central venous access (example: Implanted Port, PICC) unless otherwise directed by provider. (Exclusion: Hemodialysis line may not be accessed without order from provider) Local Anesthetic for IV Initiation Panel (18 and over) ORDER SET Local Anesthetic for use to initiate IV (orders to discontinue 24 hours from initiation) Lidocaine 1% 0.3mL intradermal ONE TIME to numb area of IV catheter insertion or port access PRN Lidocaine 4% (L.M.X.4) applied topically ONE TIME 15 minutes prior to IV catheter insertion PRN Peripheral IV (Peripheral and Midline catheter) Flush Panel (18 yr and over) ORDER SET Line care and maintenance Sodium chloride 0.9% (normal saline) flush 5 mL every 12 hours when locked Sodium chloride 0.9% (normal saline) flush 5 mL PRN before and after medication administration or to verify line patency Carrier fluid (select most appropriate fluid for capability with medications) Sodium chloride 0.9% (normal saline) 250 mL carrier bag. Infuse 25 mL at a rate of IVPB administration to flush as needed to complete the IVPB and/or may keep rate at KVO (10mL/hr) to minimize frequent line interruption. Dextrose 5% (D5W) 250 mL carrier bag Infuse 25 mL at a rate of IVPB administration to flush as needed to complete the IVPB and/or may keep rate at KVO (10mL/hr) to minimize frequent line interruption. Central Lines (CVC, Sheath/Introducer, 3rd lumen of Hemodialysis catheter) Flush Panel (18 yr and over) ORDER SET Line care and maintenance Sodium chloride 0.9% (normal saline) flush 10mL per lumen every 12 hours when locked. Sodium chloride 0.9% (normal saline) flush 10mL per lumen before and after medication administration or to verify line patency. Carrier fluid (select most appropriate fluid for capability with medications) Sodium chloride 0.9% (normal saline) 250 mL carrier bag. Infuse 25 mL at a rate of IVPB administration to flush as needed to complete the IVPB and/or may keep rate at KVO (10mL/hr) to minimize frequent line interruption. Dextrose 5% (D5W) 250 mL carrier bag: carrier bag Infuse 25 mL at a rate of IVPB administration to flush as needed to complete the IVPB and/or may keep rate at KVO (10mL/hr) to minimize frequent line interruption. Central Lines (PICC, Implanted Port) Flush Panel (18 yr and over) ORDER SET Line care and maintenance Sodium chloride 0.9% (normal saline) flush 10mL per lumen AND Heparin 10 units/mL 5mL per lumen every 12 hours after normal saline flush when locked. o Sodium chloride 0.9% (normal saline) flush 10mL per lumen before and after medication administration or to verify line patency AND Heparin 10 units/mL 5 mL per lumen following normal saline flush to lock. Carrier fluid (select most appropriate fluid for capability with medications) Sodium chloride 0.9% (normal saline) 250 mL carrier bag. Infuse 25 mL at a rate of IVPB administration to flush as needed to complete the IVPB and/or may keep rate at KVO (10mL/hr) to minimize frequent line interruption. Dextrose 5% (D5W) 250 mL carrier bag: carrier bag Infuse 25 mL at a rate of IVPB administration to flush as needed to complete the IVPB and/or may keep rate at KVO (10mL/hr) to minimize frequent line interruption. Transducers- Hemodynamic Pressure Monitoring Arterial Catheter, Pulmonary Artery Catheter, Central Venous Pressure, Intra- Aortic Balloon Pump: Sodium chloride 0.9% (normal saline) to infuse continuously at 3mL/hr via pressure bag at 300 mmHg Intra-Aortic Balloon Pump: Heparin 2 unit/mL in normal saline to infuse continuously at 3 mL/hr via pressure bag at 300mmHg For Occluded Central Line (Adult ONCOLOGY only) ?? Alteplase (CATHFLO) Instill 2mg to affected lumen(s) to dwell in occluded lumen one time. * Care Plan - Becky Torres RCP - 10/22/2023 6:06 PM CDT Images from the original note were not included. ST RT Ventilator Management and Liberation for Post-Op CABG/Valve Replacement Protocol [facility] Approved by: [facility] - Medical Executive Committee Approval Date: 11/30/2022 ORDERS ARE ENTERED ???PER PROTOCOL?? Enter the protocol in the patient's electronic health record using smartphrase: .ctsurgeryextubateprotocol Applies to patients admitted to the Cardiovascular Intensive Care Unit (CVICU) post-op CABG and/or Valve Replacement procedure on a mechanical ventilator. Contact credentialed provider to obtain the Liberation Weaning order ([id number]) At any point during this process the credentialed provider may override the exclusion or evaluationcriteria and move forward with the protocol or request an assessment for extubation. Upon patient arrival to the CVICU, the RT sql database administrator will place a sign on the ventilator with an extubation goal of 5 hours from CVICU admission. If the patient continues to fail after 8 hours, the patient will be placed on the [facility] RT Adult ICU Ventilator Liberation Protocol Any steamtable worker may stop Liberation Protocol if patient safety concerns arise. INITITAL VENTILATOR MANAGEMENT 1. Order initial Mechanical Ventilation settings using order (RT25) upon arrival from the OR, usingthe settings below as a guideline: AC Rate 12/min FiO2 of 0.6 Peep of 5 cm H2O Tidal Volume of 8-10 cc/kg [place] Body Weight 2. Draw Arterial Blood Gas 30 minutes after arrival to the CVICU LIBERATION PROTOCOL The Nurse and Respiratory Therapist collaboratively perform Evaluation Criteria assessment 2 hours after the patient has arrived to the CVICU and every 1 hour afterwards. FiO2 should be weaned every 30 minutes if SpO2 > 92% Evaluation Criteria Awake, alert, and following commands with RASS> -2 and <+2 Hemodynamically stable and on no more than one inotropic or vasopressor infusion. HR > 60 and < 100, MAP > 65 No current assistive device: IABP, Impella, ECMO, VAD Temperature > 36.5 degrees Celsius Drainage from all drains or chest tubes < 100 mL/hour FiO2 <= 0.4 and PEEP <= 5 cm H2O Ve < 15 L/Min and RR < 35/Min ABG with pH 7.33-7.48, PCO2 33-48, pO2 > 60 If the patient fails the Evaluation Criteria, re-evaluate patient every 1 hour until the patient issuccessfully extubated or after the 3rd assessment the patient continues to fail, contact credentialed provider for further orders. If the patient continues to fail after 5 hours, perform a team huddle to determine cause of prolonged intubation. If patient meets the Evaluation Criteria, perform a Rapid Shallow Breathing Index (RSBI) and Spontaneous Breathing Trial (SBT) If the patient fails the RSBI or SBT then contact the credentialed provider If patient has an RSBI < 105 and passes SBT, AND has ABG with hH 7.33-7.48, PCO2 33-48, pO2 >60, Nursing/Respiratory may place an Extubation order (RT23). * Care Plan - Oral Youssef RN - 10/19/2023 7:27 PM CDT Admit: @ 1815 Received Zee Martinez to [facility] room 5082/1 from IVC G023 this Evening via wheelchair Report obtained from Keya GRIFFITHS, verified baseline PTT sent to lab Sinus rhythm on the monitor rate = 70's Pulse oximetry on room air sats @ high 90% Updated RN/INTENSIVE CARE MEDICINE SPECIALIST zone phones on white board Dr. Ferrell at bedside Heparin drip started @ 12units/kg/min, ordered PTT to be drawn 6 hours from initiation Plan of Care to continue and reviewed with patient/family. All questions and concerns addressed. Report given to: Monroe GRIFFITHS for the next shift At shift change Patient is in chair Cardiac Rhythm is Sinus rhythm rate = 70's On room air sats @ high 90 % Vitals: 10/19/23 1818 BP: (!) 143/57 Pulse: 72 Resp: 20 Temp: 98.7 ??F (37.1 ??C) SpO2: 97% Primary RN: Allison Youssef B[place]oke, RN Zone Phone #: [phone] Medical Progressive Care Unit 5th Floor [facility] 10/19/23 * Treatment Plan - Bonita Reagan PHARMACIST - 10/19/2023 11:56 AM CDT Images from the original note were not included. 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 Dosing regimen: Low Monitoring Lab: aPTT Changes to the protocol: no [facility] Adult Heparin Protocol [facility] Approved by: [facility] - Medical Executive Committee Approval Date: 02/01/2023 ORDERS ARE ENTERED ???PER PROTOCOL?? Enter the protocol in the patient???s electronic health record using smartphrase: .rxheparinprotocol Nursing Orders: Heparin must be hung as primary IV on dedicated IV site Obtain an actual weight, not stated weight for pharmacy verification o Do not give IM injections unless credentialed prescriber is alerted and chooses to proceed. Exception: Patient may receive vaccinations without contacting provider. RN to hold pressure to site post administration for 2 minutes Call credentialed prescriber for any evidence of hematoma, decrease in hemoglobin of 2 gram/ or more, or with any acute change in mental status If indication for use is Venous Thrombo Embolism (PE or DVT) patient must have at least 5 days of therapy overlapping with warfarin therapy even if INR reaches target value prior to 5 days. Notify pharmacy with unfractionated heparin monitoring (anti-Xa activity) or PTT results to validate adjustment and have eMAR updated to match current infusion rate 6 hours after initiation, infusion dose change or bolus dose, enter lab order for PTT or anti-Xa (see below under Management Options instructions). When programming the smart pump, refer to weight in eMAR order (this may not correlate with patients current weight) Verify weight in eMAR order matches weight in smartpump Enter actual volume infused into flowsheet directly from smart pump upon clearing the pump volume Management Options: PTT monitoring: For patients who have taken a Xa inhibitor (apixiban, rivaroxaban, edoxaban) withinthe last 48 hours or at an unknown time prior to admission use PTT laboratory monitoring per ordersbelow Laboratory Orders: Baseline: PTT (LAB 325), INR (Lab 320) and CBC without differential (Lab 294) at baseline Infusion monitoring until stable: Timed PTT every 6 hours after the initiation of infusion, change in rate or bolus until 2 consecutive PTTs are in therapeutic range Daily once stable: PTT (LAB 325) daily while on heparin once stable Minumum every 3 days: CBC without differential (NUL302) drawn at minimum of every 3 days while on heparin Medication Orders: Discontinue ALL other orders for subcutaneous or IV heparin, enoxaparin (LOVENOX , or fondaparinux (ARIXTRA) or oral anticoagulants dabigatran (PRADAXA), apixaban (ELIQUIS), edoxaban (SAVAYSA) or rivaroxaban (XARELTO) DOSING WEIGHT for this therapy should be: Obtained using a scale, not stated weight Order specific heparin dosing weight to be calculated by pharmacist if weight exceeds 100kg and an ADJUSTED body weight will be used to perform dose calculations. Pharmacist will enter the dosing weight in the administration instructions. Caution should be used by the RN to observe that this is the weight used in the smart pump and use the weight already existing in the smart pump. This may require a dedicated pump for the heparin infusion. Standard Dose Heparin Infusion (Usual indications: VTE-PE/DVT) Heparin (heparin 1,000units/1mL) LOADING dose of 80 units/kg IV push ONE TIME (round to the [id number] units) followed immediately by heparin (heparin 25,000 units/250mL) continuous INFUSION 18units/kg/hr (round to nearest 100 units) ???Standard Heparin Protocol?? Dose Adjustment for Non-therapeutic PTT PTT IV BOLUS DOSE IV INFUSION CHANGE less than 53 seconds 60 unit/kg bolus Increase infusion rate by 4 units/kg/hr 53-67 seconds 30 unit/kg bolus Increase infusion rate by 2 units/kg/hr 68-95 seconds No bolus, no change in rate, at GOAL, if stable x 2 consecutive lab results, change monitoring to DAILY 96-116 seconds No bolus Decrease infusion rate by 2 units/kg/hr Greater than 116 seconds Hold heparin infusion for 1 hour and decrease infusion rate by 3 units/kg/hr Low Dose Heparin Infusion (Usual indications: A fib, those recently experiencing bleeding so desirefor gentle anticoagulation or Stroke NOT for ACS-STEMI or NSTEMI) Heparin (heparin 1,000units/1mL) LOADING dose of 60 units/kg IV push ONE TIME now (round to the nearest 100 units) and begin heparin (heparin 25,000 units/250mL) continuous INFUSION 12units/kg/hr (round to nearest 100 units). No max to BOLUS or Infusion rate. Dosing weight to be observed. ???Low Dose Heparin Protocol?? Dose Adjustment for Non-therapeutic PTT PTT IV BOLUS DOSE IV INFUSION CHANGE less than 53 seconds 30 unit/kg bolus Increase infusion rate by 2 units/kg/hr 53-64 seconds 15 unit/kg bolus Increase infusion rate by 1 units/kg/hr 65-86 seconds No bolus, no change in rate, at GOAL, if stable x 2 consecutive lab results, change monitoring to DAILY 87-116 seconds No bolus Decrease infusion rate by 1 units/kg/hr Greater than 116 seconds Hold heparin infusion for 1 hour and decrease infusion rate by 3 units/kg/hr Heparin Infusion for ACS- NSTEMI/STEMI Heparin (heparin 1,000units/1mL) LOADING dose of 60 units/kg IV push ONE TIME now (round to the nearest 100 units) Max of 4,000 units and begin heparin (heparin 25,000 units/250mL) continuous INFUSION 12units/kg/hr (round to nearest 100 units) Max of 1,000 units per hour. Pharmacist to provide the nurse with a calculated dose in units per kg per hour if the calculated dose exceeds the maximum of 1,000 units per hour. For example, if the patient weight is 92kg the calculated value of heparin per hour is 1,100 units however as the max is 1,000 units, the pharmacist will update the order to read 10.9 units per kg/hrto allow the pump to be programmed in units per kg per hour but NOT exceed the overall calculated dose of 1000 units per hour. Pharmacist will also be calculating a heparin dosing weight for all patients over 100kg. Pharmacistwill denote dosing weight in admin instructions. This may required dedicated Alaris pump to keep dosing weight separate for this infusion. ???Heparin Protocol for ACS-NSTEMI/STEMI?? Dose Adjustment for Non-therapeutic PTT PTT IV BOLUS DOSE IV INFUSION CHANGE less than 53 seconds 30 unit/kg bolus Increase infusion rate by 2 units/kg/hr 53-64 seconds 15 unit/kg bolus Increase infusion rate by 1 units/kg/hr 65-86 seconds No bolus, no change in rate, at GOAL, if stable x 2 consecutive lab results, change monitoring to DAILY 87-116 seconds No bolus Decrease infusion rate by 1 units/kg/hr Greater than 116 seconds Hold heparin infusion for 1 hour and decrease infusion rate by 3 units/kg/hr Anti-Xa monitoring: For patients who have NOT taken a Xa inhibitor (apixiban, rivaroxaban, edoxaban) within the last 48 hours or at an unknown time prior to admission use Laboratory Orders: Baseline: Unfractionated heparin monitoring (anti-Xa activity) (Lab 1995), INR (Lab 320) and CBC without differential (Lab 320) at baseline Infusion monitoring until stable: Timed unfractionated heparin monitoring (anti- Xa activity) every 6 hours after the initiation of infusion, change in rate or bolus until 2 consecutive unfractionatedheparin monitoring (anti-Xa activity) are in therapeutic range Daily once stable: Unfractionated heparin monitoring (anti-Xa activity) daily while on heparin oncestable Minumum every 3 days: CBC without differential (LAB 320) drawn at minimum of every 3 days while on heparin Medication Orders: Discontinue ALL other orders for subcutaneous or IV heparin, enoxaparin (LOVENOX , or fondaparinux (ARIXTRA) or oral anticoagulants dabigatran (PRADAXA), apixaban (ELIQUIS), edoxaban (SAVAYSA) or rivaroxaban (XARELTO) DOSING WEIGHT for this therapy should be: Obtained using a scale, not stated weight Order specific heparin dosing weight to be calculated by pharmacist if weight exceeds 100kg and an ADJUSTED body weight will be used to perform dose calculations. Pharmacist will enter the dosing weight in the administration instructions. Caution should be used by the RN to observe that this is theweight used in the smart pump and use the weight already existing in the smart pump. This may require a dedicated pump for the heparin infusion Standard Dose Heparin Infusion (Usual indications: VTE-PE/DVT) Heparin (heparin 1,000units/1mL) LOADING dose of 80 units/kg IV push ONE TIME (round to the units) followed immediately by heparin (heparin 25,000 units/250mL) continuous INFUSION 18units/kg/hr (round to nearest 100 units) ???Standard Heparin Protocol?? Dose Adjustment for Non-therapeutic anti-Xa Unfractionated Heparin Activity (anti-Xa) IV BOLUS DOSE IV INFUSION CHANGE Less than 0.2 units/mL 60 unit/kg bolus Increase infusion rate by 3 units/kg/hr 0.2-0.29 units/mL 30 unit/kg bolus Increase infusion rate by 2 units/kg/hr 0.3-0.7 units/mL No bolus, no change in rate, at GOAL, if stable x 2 consecutive lab results, change monitoring to DAILY No change 0.71-0.8 units/mL No bolus Decrease infusion rate by 1 units/kg/hr 0.81-0.9 units/mL Hold heparin infusion for 30 minutes and decrease infusion rate by 2 units/kg/hr Greater than 0.9 units/mL Hold heparin infusion for 60 minutes and decrease infusion rate by 3 units/kg/hr Low Dose Heparin Infusion (Usual indications: A fib, those recently experiencing bleeding so desirefor gentle anticoagulation or Stroke NOT for ACS-STEMI or NSTEMI) Heparin (heparin 1,000units/1mL) LOADING dose of 60 units/kg IV push ONE TIME now (round to the nearest 100 units) and begin heparin (heparin 25,000 units/250mL) continuous INFUSION 12units/kg/hr (round to nearest 100 units). No max to BOLUS or Infusion rate. Dosing weight to be observed. ???Low Dose Heparin Protocol?? Dose Adjustment for Non-therapeutic unfractionated heparin monitoring (Anti-Xa) Unfractionated Heparin Activity (anti-Xa) IV BOLUS DOSE IV INFUSION CHANGE Less than 0.2 units/mL 30 unit/kg bolus Increase infusion rate by 3 units/kg/hr 0.2-0.29 units/mL 15 unit/kg bolus Increase infusion rate by 1 unit/kg/hr 0.3-0.6 units/mL No bolus, no change in rate, at GOAL, if stable x 2 consecutive lab results, change monitoring to DAILY No change 0.61-0.7 units/mL No bolus Decrease infusion rate by 1 units/kg/hr 0.71-0.9 units/mL Hold heparin infusion for 30 minutes and decrease infusion rate by 2 units/kg/hr Greater than 0.9 units/mL Hold heparin infusion for 60 minutes and decrease infusion rate by 3 units/kg/hr Heparin Infusion for ACS- NSTEMI/STEMI Heparin (heparin 1,000units/1mL) LOADING dose of 60 units/kg IV push ONE TIME now (round to the nearest 100 units) Max of 4,000 units and begin heparin (heparin 25,000 units/250mL) continuous INFUSION 12units/kg/hr (round to nearest 100 units) Max of 1,000 units per hour. Pharmacist to provide the nurse with a calculated dose in units per kg per hour if the calculated dose exceeds the maximum of 1,000 units per hour. For example, if the patient weight is 92kg the calculated value of heparin per hour is 1,100 units however as the max is 1,000 units, the pharmacist will update the order to read 10.9 units per kg/hrto allow the pump to be programmed in units per kg per hour but NOT exceed the overall calculated dose of 1000 units per hour. Pharmacist will also be calculating a heparin dosing weight for all patients over 100kg. Pharmacistwill denote dosing weight in admin instructions. This may required dedicated Alaris pump to keep dosing weight separate for this infusion. ???Heparin Protocol for ACS-NSTEMI/STEMI?? Dose Adjustment for Non-therapeutic Unfractionated heparin monitoring (Anti-Xa) Unfractionated Heparin Activity (anti-Xa) IV BOLUS DOSE IV INFUSION CHANGE Less than 0.2 units/mL 30 unit/kg bolus Increase infusion rate by 3 units/kg/hr 0.2-0.29 units/mL 15 unit/kg bolus Increase infusion rate by 1 unit/kg/hr 0.3-0.6 units/mL No bolus, no change in rate, at GOAL, if stable x 2 consecutive lab results, change monitoring to DAILY No change 0.61-0.7 units/mL No bolus Decrease infusion rate by 1 units/kg/hr 0.71-0.9 units/mL Hold heparin infusion for 30 minutes and decrease infusion rate by 2 units/kg/hr Greater than 0.9 units/mL Hold heparin infusion for 60 minutes and decrease infusion rate by 3 units/kg/hr Other Treatments If transition is planned to warfarin or patient will be resumed on warfarin, see warfarin protocol for separate orders. documented in this encounter Plan of Treatment Upcoming Encounters Date Type Department Care Team (Late st Contact Info) Description 2024 11:00 AM COMMERCIAL SUBCONTRACTOR Appointment [facility] [address] [place] [address] 07/21/2024 9:45 AM COMMERCIAL SUBCONTRACTOR Appointment [facility] Product Inspection Supervisor [address] [place] [address] Sarbjit Brooks MD [address] [place] [phone] 07/21/2024 9:53 AM COMMERCIAL SUBCONTRACTOR Hospital Encounter [facility] Product Inspection Supervisor [address] [place] [address] Sarbjit Brooks MD [address] [place] [address] Jesse Lackey-fib 07/21/2024 9:53 AM COMMERCIAL SUBCONTRACTOR - 07/21/2024 11:46 AM COMMERCIAL SUBCONTRACTOR Surgery [facility] Product Inspection Supervisor [address] [place] [phone] Sarbjit Brooks MD [address] [place] [address] Left atrial appendage closure percutaneous 07/28/2024 8:30 AM COMMERCIAL SUBCONTRACTOR Office Visit [facility] Oncology and Hematology - [place] [address] [facility] [address] [place] [phone] Nahid Hickman MD [address] [facility] [address] [place] [address] 09/09/2024 1:00 PM CDT Office Visit [facility] Heart and Vascular At [address] [place] [address] Sarbjit Brooks MD [facility] [address] [facility] [address] [place] [address] 12/16/2024 11:00 AM CDT Office Visit [facility]] HEART AND VASCULAR EP AT [address] [place] [address] Sammy Bowling DNP [facility] [address] [place] [address] 02/05/2025 10:45 AM CDT Telephone Check Up [facility] Heart and Vascular At [address] [place] [address] 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 FNP [facility] [place] [address] Scheduled Referrals Name Type Priority Associated Diagnoses Orde r Schedule AMB REFERRAL TO CARDIAC REHAB Outpatient Referral Routine S/P CABG (coronary artery bypass graft) Ordered: 10/25/2023 documented as of this encounter Procedures Procedure Name Priority Date/Time Associated Diagnosis Comments TELEMETRY REPORT 10/31/2023 3:50 PM CDT 2019 NOVEL CORONAVIRUS (COVID-19) PCR DETECTION Routine 10/30/2023 1:37 PM CDT DIFFERENTIAL, MANUAL Routine 10/29/2023 1:54 AM CDT CBC WITH DIFFERENTIAL Routine 10/29/2023 1:54 AM CDT BASIC METABOLIC PANEL Routine 10/29/2023 1:54 AM CDT POC GLUCOSE Routine 10/28/2023 10:37 PM CDT POC GLUCOSE Routine 10/28/2023 12:19 PM CDT POC GLUCOSE Routine 10/28/2023 8:36 AM CDT POC GLUCOSE Routine 10/27/2023 6:00 PM CDT POC GLUCOSE Routine 10/27/2023 1:20 PM CDT POC GLUCOSE Routine 10/27/2023 10:14 AM CDT POC GLUCOSE Routine 10/27/2023 8:06 AM CDT POC GLUCOSE Routine 10/26/2023 9:08 PM CDT MAGNESIUM LEVEL Routine 10/26/2023 5:51 PM CDT BASIC METABOLIC PANEL Routine 10/26/2023 5:51 PM CDT POC GLUCOSE Routine 10/26/2023 5:50 PM CDT POC GLUCOSE Routine 10/26/2023 12:09 PM CDT POC GLUCOSE Routine 10/26/2023 7:56 AM CDT DIFFERENTIAL, MANUAL Routine 10/26/2023 5:04 AM CDT CBC WITH DIFFERENTIAL Routine 10/26/2023 5:04 AM CDT BASIC METABOLIC PANEL Routine 10/26/2023 5:04 AM CDT POC GLUCOSE Routine 10/25/2023 7:27 PM CDT POC GLUCOSE Routine 10/25/2023 5:25 PM CDT POC GLUCOSE Routine 10/25/2023 11:42 AM CDT ECHOCARDIOGRAM W/ CONTRAST AGENT Routine 10/25/2023 7:29 AM CDT POC GLUCOSE Routine 10/25/2023 7:25 AM CDT XR CHEST PA OR AP 1 VW Routine 6:23 AM CDT DIFFERENTIAL, MANUAL Routine 10/25/2023 4:09 AM CDT CBC WITH DIFFERENTIAL Routine 10/25/2023 4:09 AM CDT BASIC METABOLIC PANEL Routine 10/25/2023 4:09 AM CDT POC GLUCOSE Routine 10/24/2023 8:06 PM CDT POC GLUCOSE Routine 10/24/2023 4:49 PM CDT POC GLUCOSE Routine 10/24/2023 11:59 AM CDT TRANSFUSE PACKED RED BLOOD CELLS Routine 10/24/2023 11:41 AM CDT TYPE AND SCREEN Routine 10/24/2023 9:35 AM CDT PREPARE RED BLOOD CELLS Routine 10/24/2023 8:54 AM CDT POC GLUCOSE Routine 10/24/2023 8:11 AM CDT EKG 12-LEAD Routine 10/24/2023 7:07 AM CDT BLOOD GAS VENOUS Routine 10/24/2023 4:5 6 AM CDT DIFFERENTIAL, MANUAL Routine 10/24/2023 4:53 AM CDT CBC WITH DIFFERENTIAL Routine 10/24/2023 4:53 AM CDT BASIC METABOLIC PANEL Routine 10/24/2023 4:53 AM CDT POC GLUCOSE Routine 10/23/2023 10:24 PM CDT POC GLUCOSE Routine 10/23/2023 8:26 PM CDT BLOOD GAS ARTERIAL Stat 10/23/2023 5: 52 PM CDT DIFFERENTIAL, MANUAL Stat 10/23/2023 5:15 PM CDT CBC WITH DIFFERENTIAL Stat 10/23/2023 5:15 PM CDT MAGNESIUM LEVEL Stat 10/23/2023 5:15 PM CDT BASIC METABOLIC PANEL Stat 10/23/2023 5:15 PM CDT POC GLUCOSE Routine 10/23/2023 5:14 PM CDT EKG 12-LEAD Routine 10/23/2023 4:43 PM CDT POC GLUCOSE Routine 10/23/2023 12:07 PM CDT POC TEG STANDARD A Routine 10/23/2023 10 :30 AM CDT EKG 12-LEAD Routine 10/23/2023 8:23 AM CDT POC GLUCOSE Routine 10/23/2023 8:06 AM CDT POC TEG STANDARD A Routine 10/23/2023 7: 19 AM CDT POC GLUCOSE Routine 10/23/2023 7:12 AM CDT POC GLUCOSE Routine 10/23/2023 6:06 AM CDT XR CHEST PA OR AP 1 VW Routine 5:29 AM CDT POC GLUCOSE Routine 10/23/2023 5:23 AM CDT POC GLUCOSE Routine 10/23/2023 4:07 AM CDT DIFFERENTIAL, MANUAL Routine 10/23/2023 4:07 AM CDT CBC WITH DIFFERENTIAL Routine 10/23/2023 4:07 AM CDT COMPREHENSIVE METABOLIC PANEL Routine 10/23/2023 4:07 AM CDT POC GLUCOSE Routine 10/23/2023 2:55 AM CDT EXTUBATION Routine 10/23/2023 2:06 AM CDT POC GLUCOSE Routine 10/23/2023 2:00 AM CDT BLOOD GAS ARTERIAL Routine 10/23/2023 1: 55 AM CDT POC GLUCOSE Routine 10/23/2023 1:01 AM CDT POC GLUCOSE Routine 10/22/2023 11:57 PM CDT POC GLUCOSE Routine 10/22/2023 10:55 PM CDT POC GLUCOSE Routine 10/22/2023 9:58 PM CDT POC GLUCOSE Routine 10/22/2023 8:53 PM CDT POC GLUCOSE Routine 10/22/2023 7:58 PM CDT XR CHEST PA OR AP 1 VW Stat 7:10 PM CDT POC GLUCOSE Routine 10/22/2023 7:06 PM CDT POC GLUCOSE Routine 10/22/2023 6:18 PM CDT BLOOD GAS ARTERIAL Routine 10/22/2023 6: 17 PM CDT CBC WITH DIFFERENTIAL Routine 10/22/2023 6:14 PM CDT PTT Stat 10/22/2023 6:14 PM CDT PROTIME-INR Stat 10/22/2023 6:14 PM CDT MAGNESIUM LEVEL Routine 10/22/2023 6:14 PM CDT COMPREHENSIVE METABOLIC PANEL Stat 10/22/2023 6:14 PM CDT POC LACTIC ACID Routine 10/22/2023 5:10 PM CDT BLOOD GAS,(INCL. H+H, LYTES, GLUC) Routine 10/22/2023 5:10 PM CDT POC LACTIC ACID Routine 10/22/2023 4:29 PM CDT BLOOD GAS,(INCL. H+H, LYTES, GLUC) Routine 10/22/2023 4:29 PM CDT TRANSFUSE PACKED RED BLOOD CELLS Routine 10/22/2023 3:38 PM CDT POC LACTIC ACID Routine 10/22/2023 3:35 PM CDT BLOOD GAS,(INCL. H+H, LYTES, GLUC) Routine 10/22/2023 3:35 PM CDT POC LACTIC ACID Routine 10/22/2023 2:43 PM CDT BLOOD GAS,(INCL. H+H, LYTES, GLUC) Routine 10/22/2023 2:43 PM CDT POC TEG STANDARD A Routine 10/22/2023 1: 40 PM CDT US GUIDE NEEDLE PLACEMENT Routine 10/22/2023 12:58 PM CDT TRANSESOPHAGEAL ECHOCARDIOGRAM 10/22/2023 11:56 AM CDT Case Notes INPATIENT NE NDSC SURG W/VIDEO-ASSISTED HARVEST VEIN CABG 10/22/2023 11:56 AM CDT Case Notes INPATIENT NE INCISION DEEP OPENING BONE CORTEX THORAX 10/22/2023 11:56 AM CDT Case Notes INPATIENT CORONARY ARTERY BYPASS GRAFT OFF PUMP 10/22/2023 11:56 AM CDT Case Notes INPATIENT PREPARE RED BLOOD CELLS Routine 10/22/2023 8:41 AM CDT PREPARE RED BLOOD CELLS Routine 10/22/2023 8:41 AM CDT PREPARE RED BLOOD CELLS Routine 10/22/2023 8:41 AM CDT PREPARE RED BLOOD CELLS Routine 10/22/2023 8:41 AM CDT PREPARE RED BLOOD CELLS Routine 10/22/2023 8:41 AM CDT PREPARE RED BLOOD CELLS Routine 10/22/2023 8:41 AM CDT CVOR TRANSESOPHAGEAL STUDY Routine 10/22/2023 8:40 AM CDT POC GLUCOSE Routine 10/22/2023 6:24 AM CDT CBC WITHOUT DIFFERENTIAL Routine 10/22/2023 1:01 AM CDT BASIC METABOLIC PANEL Routine 10/22/2023 1:01 AM CDT PTT Timed Study 10/21/2023 8:44 PM CDT URINALYSIS W/REFLEX MICROSCOPIC Routine 10/21/2023 8:04 PM CDT PTT Timed Study 10/21/2023 3:05 PM CDT PREPARE RED BLOOD CELLS Routine 10/21/2023 10:22 AM CDT PREPARE RED BLOOD CELLS Routine 10/21/2023 10:22 AM CDT PTT Timed Study 10/21/2023 6:46 AM CDT CBC WITHOUT DIFFERENTIAL Routine 10/21/2023 6:46 AM CDT BASIC METABOLIC PANEL Routine 10/21/2023 6:46 AM CDT PTT Timed Study 10/20/2023 10:05 PM CDT PTT Timed Study 10/20/2023 3:49 PM CDT URINALYSIS W/REFLEX MICROSCOPIC Routine 10/20/2023 7:49 AM CDT XR CHEST PA AND LATERAL 2 VW Routine 10/20/2023 7:38 AM CDT PTT Timed Study 10/20/2023 7:07 AM CDT PTT Routine 10/20/2023 1:05 AM CDT CBC WITHOUT DIFFERENTIAL Routine 10/20/2023 1:05 AM CDT TYPE AND SCREEN Routine 10/20/2023 1:05 AM CDT HEMOGLOBIN A1C Routine 10/20/2023 1:05 AM CDT BASIC METABOLIC PANEL Routine 10/20/2023 1:05 AM CDT PTT Routine 10/19/2023 5:39 PM CDT EKG 12-LEAD Routine 10/19/2023 2:35 PM CDT LEFT HEART CATH Routine 10/19/2023 11:34 AM CDT DIFFERENTIAL, MANUAL Stat 10/19/2023 9:58 AM CDT CBC WITH DIFFERENTIAL Stat 10/19/2023 9:58 AM CDT PROTIME-INR Stat 10/19/2023 9:58 AM CDT LIPID PANEL Stat 10/19/2023 9:58 AM CDT COMPREHENSIVE METABOLIC PANEL Stat 10/19/2023 9:58 AM CDT documented in this encounter Results * TELEMETRY REPORT (10/31/2023 3:50 PM CDT) Provider Scanning ECG ORDERABLES * 2019 NOVEL CORONAVIRUS (COVID-19) PCR DETECTION (10/30/2023 1:37 PM CDT) COVID-19 PCR NOT DETECTED Not Detected 10/30/19 24 2:37 PM CDT [facility] Upper Respiratory ENTIRE NASOPHARYNX / Unknown Collection / Unknown 10/30/2023 1:37 PM CDT 10/30/2023 1:54 PM CDT Narrative [facility] - 10/30/2023 2:37 PM CDT This test has been authorized by the FDA under an Emergency Use Authorization for use by authorized laboratories.?? This test has been validated in accordance with the FDA's guidance regarding Coronavirus Disease-2019 testing.?? Optimum specimen types and timing for peak viral levels during infection have not been determined.?? A negative RT-PCR result does not rule out infection with the 2019-Novel Coronavirus. [facility] AL ORDERABLES [facility] CLIA# [id number] [address] [place] [address] * (ABNORMAL) MANUAL DIFFERENTIAL (10/29/2023 1:54 AM CDT) SEGMENTED NEUTROPHILS 47 % 10/29/2023 9:26 AM CDT [employer] LABORATORY SERVICES - [facility] LYMPHOCYTES RELATIVE 17(L) 43 - 53 % 10/29/2023 9:[address] [facility] - [facility] MONOCYTES RELATIVE 35 % 10/29/2023 9:26 AM T [facility] - [facility] [place] EOSINOPHILS RELATIVE 1 % 10/29/2023 9:26 AM T [facility] - [facility] NEUTROPHILS ABSOLUTE COUNT 6.82 1.90 - 7.00 K/uL 10/29/2023 9:26 AM CDT [employer] LABORATORY SERVICES - [facility] LYMPHOCYTES ABSOLUTE 2.47 0.70 - 4.50 K/uL 10/29/2023 9:26 AM T [employer] LABORATORY SERVICES - [facility] MONOCYTES ABSOLUTE 5.08(H) 0.10 - 1.30 K/uL 10/29/2023 9:26 AM [facility] [employer] LABORATORY SERVICES - [facility] EOSINOPHILS ABSOLUTE 0.15 0.00 - 0.70 K/uL 10/29/2023 9:26 AM T [employer] LABORATORY SERVICES - . [facility] TOTAL CELLS COUNTED IN DIFF 100 10/29/2023 9:26 AM T [employer] LABORATORY SERVICES - . [facility] PLATELET EST. Consistent w Count 10/29/2023 9:26 AM [facility] [employer] LABORATORY SERVICES - . [facility] ANISOCYTOSIS 1+ /hpf 10/29/2023 9:26 AM [facility] [employer] LABORATORY SERVICES - . [facility] SMUDGE CELLS Present /100 10/29/2023 9:26 AM [facility] [employer] LABORATORY SERVICES - [facility] Blood Venipuncture / Unknown 10/29/2023 1:54 AM CDT 10/29/2023 2:05 AM CDT [facility] [employer] LABORATORY SERVICES - [facility] - 10/29/2023 9:26 AM CDT Manual differential performed on albumin slide. Ashley SIMS HEMATOLOGY ORDERA BLES COM [facility] LABORATORY SERVICES [facility] CLIA# [id number] [address] [place] [address] * (ABNORMAL) BASIC METABOLIC PANEL (10/29/2023 1:54 AM CDT) SODIUM 136 136 - 145 mmol/L 10/29/2023 2:47 AM [facility] LABORATORY [facility] POTASSIUM 4.2 3.5 - 5.0 mmol/L 10/29/2023 2:47 AM [facility] CHLORIDE 102 98 - 107 mmol/L 10/29/2023 2:47 AM [facility] CO2 24 22 - 29 mmol/L 10/29/2023 2:47 AM [facility] CALCIUM 8.5(L) 8.6 - 10.2 mg/dL 10/29/2023 2:47 AM [facility] BUN 22 8 - 23 mg/dL 10/29/2023 2:47 AM [facility] CREATININE 1.03(H) 0.51 - 0.95 mg/dL 10/29/2023 2:47 AM [facility] Comment:The GFR result is no t clinically significant on patients <18 or >70 years of age. GLUCOSE 117(H) 74 - 99 mg/dL 10/29/2023 2:47 AM [facility] GFR 55 mL/min/1.7 3 sq meter 10/29/2023 2:47 AM [facility] Comment:eGFR calculated with 2020 CKD-EPI equation. Vegetarian diet, extremely high or low muscle mass, and may affect results. Cystatin C with Glomerular Filtration Rate is a suitable alternative for these patients. ANION GAP 10 8 - 16 mmol/L 10/29/2023 2:47 AM [facility] LABORATORY [facility] Blood Venipuncture / Unknown 10/29/2023 1:54 AM CDT 10/29/2023 2:04 AM CDT Ashley SIMS CHEMISTRY ORDERAB LES [facility] LABORATORY SERVICES - [facility]# [id number] [address] [place] [address] * (ABNORMAL) CBC WITH DIFFERENTIAL (10/29/2023 1:54 AM CDT) WBC 14.5(H) 4.0 - 9.8 K/uL 10/29/2023 7:06 AM CDT [facility] LABORATORY SERVICES - . [facility] RBC 3.15(L) 3.90 - 4.90 M/uL 10/29/2023 7:06 AM [facility] LABORATORY SERVICES - [facility] HEMOGLOBIN 9.4(L) 11.8 - 14.8 g/dL 10/29/2023 7:06 AM [facility] LABORATORY SERVICES - [facility] HEMATOCRIT 28.6(L) 35.5 - 44.0 % 10/29/2023 7:06 AM [facility] LABORATORY SERVICES - . [facility] MCV 90.8 82.0 - 99.0 fL 10/29/2023 7:06 AM T [facility] LABORATORY SERVICES - [facility] MCH 29.8 27.2 - 32.6 pg 10/29/2023 7:06 AM [facility] LABORATORY SERVICES - [facility] MCHC 32.9 31.5 - 35.5 g/dL 10/29/2023 7:06 AM [facility] LABORATORY SERVICES - . [facility] RDW 14.8(H) 11.5 - 14.5 % 10/29/2023 7:06 AM T [facility] LABORATORY SERVICES - . [facility] RDW-STDEV 49.2(H) 37.1 - 48.7 fL 10/29/2023 7:06 AM T [facility] LABORATORY SERVICES - . [facility] PLATELETS 245 140 - 350 K/uL 10/29/2023 7:06 AM [facility] LABORATORY SERVICES - . [facility] MPV 10.6 9.3 - 12.4 fL 10/29/2023 7:06 AM [facility] LABORATORY SERVICES - . [facility] Blood Venipuncture / Unknown 10/29/2023 1:54 AM CDT 10/29/2023 2:05 AM CDT Ashley SIMS HEMATOLOGY ORDERA BLES [facility] LABORATORY [facility] CLIA# [id number] [address] [place], [place] [address] * (ABNORMAL) POC GLUCOSE (10/28/2023 10:37 PM CDT) GLUCOSE POC 126(H) 74 - 99 mg/dL 10/28/2023 10:37 PM CDT [facility] LABORATORY SERVICES [facility] SPECIMEN SOURCE, GLUCOSE POC Whole Blood 10/28/2023 10:37 PM CDT [facility] LABORATORY SERVICES [facility] Blood, whole 10/28/2023 10:3 7 PM CDT 10/28/2023 10:45 PM CDT Edinson Ferrell MD POINT OF CARE TESTIN Patrick Performing Organization Address [facility]/ZIP Co de Phone Number [facility] LABORATORY [facility] CLIA# [id number] [address] [place], [place] [address] * (ABNORMAL) POC GLUCOSE (10/28/2023 12:19 PM CDT) GLUCOSE POC 166(H) 74 - 99 mg/dL 10/28/2023 12:19 PM CDT [facility] LABORATORY SERVICES [facility] SPECIMEN SOURCE, GLUCOSE POC Whole Blood 10/28/2023 12:19 PM CDT [facility] LABORATORY SERVICES [facility] Blood, whole 10/28/2023 12:1 9 PM CDT 10/28/2023 12:34 PM CDT Edinson Ferrell MD POINT OF CARE TESTIN G [facility] LABORATORY [facility] CLIA# [id number] [address] [place], [place] [address] * (ABNORMAL) POC GLUCOSE (10/28/2023 8:36 AM CDT) GLUCOSE POC 123(H) 74 - 99 mg/dL 10/28/2023 8:36 AM CDT [facility] LABORATORY SERVICES [facility] SPECIMEN SOURCE, GLUCOSE POC Whole Blood 10/28/2023 8:36 AM CDT [facility] LABORATORY SERVICES [facility] Blood, whole 10/28/2023 8:36 AM CDT 10/28/2023 8:45 AM CDT Edinson Ferrell MD POINT OF CARE TESTCHRISTY Nguyen [facility] LABORATORY [facility] CLIA# [id number] [address] [place] [address] * (ABNORMAL) POC GLUCOSE (10/27/2023 6:00 PM CDT) GLUCOSE POC 169(H) 74 - 99 mg/dL 10/27/2023 6:00 PM CDT [facility] LABORATORY [facility] SPECIMEN SOURCE, GLUCOSE POC Whole Blood 10/27/2023 6:00 PM CDT [facility] LAB[facility]ATORY [facility] Blood, whole 10/27/2023 6:00 PM CDT 10/27/2023 6:08 PM CDT Edinson Ferrell MD POINT OF CARE TESTCHRISTY Nguyen [facility] CLIA# [id number] [address] [place] [address] * (ABNORMAL) POC GLUCOSE (10/27/2023 1:20 PM CDT) GLUCOSE POC 126(H) 74 - 99 mg/dL 10/27/2023 1:20 PM CDT [facility] LABORATORY SERVICES [facility] SPECIMEN SOURCE, GLUCOSE POC Whole Blood 10/27/2023 1:20 PM CDT [facility] LABORATORY SERVICES [facility] Blood, whole 10/27/2023 1:20 PM CDT 10/27/2023 1:33 PM CDT Edinson Ferrell MD POINT OF CARE TESTIN G [facility] LABORATORY [facility] CLIA# [id number] [address] [place] [address] * (ABNORMAL) POC GLUCOSE (10/27/2023 10:14 AM CDT) GLUCOSE POC 188(H) 74 - 99 mg/dL 10/27/2023 10:14 AM CDT [facility] LABORATORY SERVICES [facility] SPECIMEN SOURCE, GLUCOSE POC Whole Blood 10/27/2023 10:14 AM [address] [facility] Blood, whole 10/27/2023 10:1 4 AM CDT 10/27/2023 10:23 AM CDT Edinson Ferrell MD POINT OF CARE TESTIN G Performing Organization Address [facility]/ZIP Co de Phone Number [facility] CLIA# [id number] [address] [place] [address] * (ABNORMAL) POC GLUCOSE (10/27/2023 8:06 AM CDT) GLUCOSE POC 134(H) 74 - 99 mg/dL 10/27/2023 8:06 AM [address] [facility] SERVICES [facility] SPECIMEN SOURCE, GLUCOSE POC Whole Blood 10/27/2023 8:06 AM CD[address] [facility] Blood, whole 10/27/2023 8:06 AM CDT 10/27/2023 8:19 AM CDT Edinson Ferrell MD POINT OF CARE TESTIN G [facility] LABORATORY [facility]# [id number] [address] [place] [address] * (ABNORMAL) POC GLUCOSE (10/26/2023 9:08 PM CDT) [facility] GLUCOSE POC 141(H) 74 - 99 mg/dL 10/26/2023 9:08 PM CDT [facility]AT[facility] SPECIMEN SOURCE, GLUCOSE POC Whole Blood 10/26/2023 9:08 PM CDT [facility] LAB[facility]ATORY [facility] COMMENT, GLU POC Notified RN/MD 10/26/2023 9:08 PM CDT [facility] Blood, whole 10/26/2023 9:08 PM CDT 10/26/2023 9:19 PM CDT Edinosn Ferrell MD POINT OF CARE TESTIN G [facility]# [id number] [address] [place] [address] * MAGNESIUM LEVEL (10/26/2023 5:51 PM CDT) [facility] MAGNESIUM 2.4 1.6 - 2.4 mg/dL 10/26/2023 6:33 PM CDT [facility] LABORATORY [facility] Blood Venipuncture / Unknown 10/26/2023 5:51 PM CDT 10/26/2023 5:57 PM CDT Ashley SIMS CHEMISTRY ORDERAB LES [facility]# [id number] [address] [place] [address] * (ABNORMAL) BASIC METABOLIC PANEL (10/26/2023 5:51 PM CDT) [facility] SODIUM 135(L) 136 - 145 mmol/L 10/26/2023 6:33 PM CDT [facility] LABORATORY [facility] POTASSIUM 4.5 3.5 - 5.0 mmol/L 10/26/2023 6:33 PM T [facility] LAB[facility]ATORY [facility] Comment:Slightly hemolyzed. Result may be falsely elevated. CHLORIDE 101 98 - 107 mmol/L 10/26/2023 6:33 PM CDT [facility] LAB[facility]ATORY [facility] CO2 22 22 - 29 mmol/L 10/26/2023 6:33 PM T [facility] LABORATORY [facility] CALCIUM 8.7 8.6 - 10.2 mg/dL 10/26/2023 6:33 PM CDT [facility] LABORATORY [facility] BUN 29(H) 8 - 23 mg/dL 10/26/2023 6:33 PM T [facility] LABORATORY [facility] CREATININE 0.87 0.51 - 0.95 mg/dL 10/26/2023 6:33 PM T [facility] LAB[facility]ATORY [facility] Comment:The GFR result is no t clinically significant on patients <18 or >70 years of age. GLUCOSE 112(H) 74 - 99 mg/dL 10/26/2023 6:33 PM T [facility] LAB[facility]ATORY [facility] GFR >60 mL/min/1.7 3 sq meter 10/26/2023 6:33 PM T [facility] LAB[facility]ATORY [facility] Comment:eGFR calculated with 2020 CKD-EPI equation. Vegetarian diet, extremely high or low muscle mass, and may affect results. Cystatin C with Glomerular Filtration Rate is a suitable alternative for these patients. ANION GAP 12 8 - 16 mmol/L 10/26/2023 6:33 PM T [facility] Blood Venipuncture / Unknown 10/26/2023 5:51 PM CDT 10/26/2023 5:57 PM CDT Ashley SIMS CHEMISTRY ORDERAB LES [facility] BRANDIIA# [id number] [address] [place] [address] * (ABNORMAL) POC GLUCOSE (10/26/2023 5:50 PM CDT) GLUCOSE POC 111(H) 74 - 99 mg/dL 10/26/2023 5:50 PM CDT [facility] LABORATORY [facility] SPECIMEN SOURCE, GLUCOSE POC Whole Blood 10/26/2023 5:50 PM CDT [facility] LABORATORY SERVICES [facility] Blood, whole 10/26/2023 5:50 PM CDT 10/26/2023 6:35 PM CDT Edinson Ferrell MD POINT OF CARE TESTIN G Performing Organization Address [facility]/ZIP Co de Phone Number [facility] LABORATORY [facility] CLIA# [id number] [address] [place] [address] * (ABNORMAL) POC GLUCOSE (10/26/2023 12:09 PM CDT) GLUCOSE POC 169(H) 74 - 99 mg/dL 10/26/2023 12:09 PM CDT [facility] LABORATORY [facility] SPECIMEN SOURCE, GLUCOSE POC Whole Blood 10/26/2023 12:09 PM CDT [facility] LAB[facility]ATORY [facility] Blood, whole 10/26/2023 12:0 9 PM CDT 10/26/2023 12:25 PM CDT Edinson Ferrell MD POINT OF CARE TESTIN G [facility] LABORATORY [facility] CLIN# [id number] [address] [place] [address] * (ABNORMAL) POC GLUCOSE (10/26/2023 7:56 AM CDT) GLUCOSE POC 102(H) 74 - 99 mg/dL 10/26/2023 7:56 AM CDT [facility]ATORY [facility] SPECIMEN SOURCE, GLUCOSE POC Whole Blood 10/26/2023 7:56 AM CDT [facility] LABORATORY SERVICES [facility] Blood, whole 10/26/2023 7:56 AM CDT 10/26/2023 8:17 AM CDT Edinson Ferrell MD POINT OF CARE TESTIN G [facility] LABORATORY SERVICES - [facility] CLIA# [id number] [address] [place] [address] * (ABNORMAL) MANUAL DIFFERENTIAL (10/26/2023 5:04 AM CDT) SEGMENTED NEUTROPHILS 74 % 10/26/2023 7:27 AM CDT [facility] LABORATORY SERVICES - [facility] LYMPHOCYTES RELATIVE 8(L) 43 - 53 % 10/26/2023 7:27 AM CDT [facility] LABORATORY SERVICES - [facility] ATYPICAL LYMPHOCYTES RELATIVE 3 0 - 5 % 10/26/2023 7:27 AM CDT [facility] LABORATORY SERVICES - [facility] MONOCYTES RELATIVE 14 % 10/26/2023 7:27 AM CDT [facility] SERVICES - . [facility] EOSINOPHILS RELATIVE 1 % 10/26/2023 7:27 AM CDT [employer] LABORATORY SERVICES - [facility] NEUTROPHILS ABSOLUTE COUNT 11.89(H) 1.90 - 7.00 K/uL 10/26/2023 7:27 AM CDT [facility] LABORATORY SERVICES - . [facility] LYMPHOCYTES ABSOLUTE 1.32 0.70 - 4.50 K/uL 10/26/2023 7:27 AM CDT [facility] LABORATORY SERVICES - [facility] MONOCYTES ABSOLUTE 2.20(H) 0.10 - 1.30 K/uL 10/26/2023 7:27 AM CDT [facility] LABORATORY SERVICES - [facility] EOSINOPHILS ABSOLUTE 0.15 0.00 - 0.70 K/uL 10/26/2023 7:27 AM CDT [facility] LABORATORY SERVICES - [facility] TOTAL CELLS COUNTED IN DIFF 109 10/26/2023 7:27 AM T [employer] [facility] SERVICES - [facility] RBC MORPHOLOGY abnormal 10/26/2023 7:27 AM CDT [facility] SERVICES - . [facility] PLATELET EST. Consistent w Count 10/26/2023 7:27 AM CDT [employer] [facility] - . [place] PLATELET MORPHOLOGY abnormal 10/26/2023 7:27 AM CDT [employer] [facility] SERVICES - [facility] ANISOCYTOSIS 1+ /hpf 10/26/2023 7:27 AM CDT [facility] LABORATORY SERVICES - [facility] POIKILOCYTES 1+ /hpf 10/26/2023 7:27 AM CDT [facility] LABORATORY SERVICES - [facility] OVALOCYTES 1+ /hpf 10/26/2023 7:27 AM CDT [facility] LABORATORY SERVICES - [facility] CRENATED RBCS Present 10/26/2023 7:27 AM CDT [facility] LABORATORY SERVICES - [facility] GIANT PLATELETS Present 7:27 AM CDT [facility] LABORATORY SERVICES - [facility] Blood Venipuncture / Unknown 10/26/2023 5:04 AM CDT 10/26/2023 5:11 AM CDT Tana Schaefer PA-C HEMATOLOGY ORDE Architectural Daily [facility] LABORATORY SERVICES - [facility] CLIN# [id number] [address] [facility] [place] [address] * (ABNORMAL) BASIC METABOLIC PANEL (10/26/2023 5:04 AM CDT) SODIUM 135(L) 136 - 145 mmol/L 10/26/2023 6:11 AM T [facility] LABORATORY SERVICES - . [facility] POTASSIUM 3.9 3.5 - 5.0 mmol/L 10/26/2023 6:11 AM T [facility] LABORATORY SERVICES - [facility] CHLORIDE 101 98 - 107 mmol/L 10/26/2023 6:11 AM CDT [facility] LABORATORY SERVICES - [facility] CO2 23 22 - 29 mmol/L 10/26/2023 6:11 AM CDT [facility] LABORATORY SERVICES - [facility] CALCIUM 8.6 8.6 - 10.2 mg/dL 10/26/2023 6:11 AM CDT [facility] LABORATORY SERVICES - [facility] BUN 31(H) 8 - 23 mg/dL 10/26/2023 6:11 AM CDT [facility] LABORATORY SERVICES - [facility] CREATININE 0.96(H) 0.51 - 0.95 mg/dL 10/26/2023 6:11 AM CDT [facility] LABORATORY SERVICES - [facility] Comment:The GFR result is no t clinically significant on patients <18 or >70 years of age. GLUCOSE 100(H) 74 - 99 mg/dL 10/26/2023 6:11 AM [facility] GFR 60 mL/min/1.7 3 sq meter 10/26/2023 6:11 AM [facility] Comment:eGFR calculated with 2020 CKD-EPI equation. Vegetarian diet, extremely high or low muscle mass, and may affect results. Cystatin C with Glomerular Filtration Rate is a suitable alternative for these patients. ANION GAP 11 8 - 16 mmol/L 10/26/2023 6:11 AM [facility] LABORATORY [facility] Blood Venipuncture / Unknown 10/26/2023 5:04 AM CDT 10/26/2023 5:11 AM CDT Tana Schaefer PA-C CHEMISTRY ORDER [place] [facility] CLIA# [id number] [address] [place] [address] * (ABNORMAL) CBC WITH DIFFERENTIAL (10/26/2023 5:04 AM CDT) WBC 16.0(H) 4.0 - 9.8 K/uL 10/26/2023 5:38 AM [facility] LABORATORY [facility] RBC 3.27(L) 3.90 - 4.90 M/uL 10/26/2023 5:38 AM [facility] LABORATORY [facility] HEMOGLOBIN 9.9(L) 11.8 - 14.8 g/dL 10/26/2023 5:38 AM [facility] LABORATORY [facility] HEMATOCRIT 29.8(L) 35.5 - 44.0 % 10/26/2023 5:38 AM [facility] LABORATORY [facility] MCV 91.1 82.0 - 99.0 fL 10/26/2023 5:38 AM [facility] LABORATORY [facility] MCH 30.3 27.2 - 32.6 pg 10/26/2023 5:38 AM CDT [facility] LABORATORY SERVICES - [facility] MCHC 33.2 31.5 - 35.5 g/dL 10/26/2023 5:38 AM CDT [facility] LABORATORY SERVICES - [facility] RDW 15.0(H) 11.5 - 14.5 % 10/26/2023 5:38 AM CDT [facility] LABORATORY SERVICES - [facility] RDW-STDEV 49.8(H) 37.1 - 48.7 fL 10/26/2023 5:38 AM CDT [facility] LABORATORY SERVICES - [facility] PLATELETS 186 140 - 350 K/uL 10/26/2023 5:38 AM CDT [facility] MPV 11.5 9.3 - 12.4 fL 10/26/2023 5:38 AM CDT [facility] Blood Venipuncture / Unknown 10/26/2023 5:04 AM CDT 10/26/2023 5:11 AM CDT Tana Schaefer PA-C HEMATOLOGY [facility] CLIA# [id number] [address] [place] [address] * (ABNORMAL) POC GLUCOSE (10/25/2023 7:27 PM CDT) GLUCOSE POC 144(H) 74 - 99 mg/dL 10/25/2023 7:27 PM CDT [facility] SPECIMEN SOURCE, GLUCOSE POC Whole Blood 10/25/2023 7:27 PM CDT [facility] Blood, whole 10/25/2023 7:27 PM CDT 10/25/2023 7:55 PM CDT Edinson Ferrell MD POINT OF CARE TESTIN G [facility] CLIA# [id number] [address] [place] [address] * (ABNORMAL) POC GLUCOSE (10/25/2023 5:25 PM CDT) GLUCOSE POC 100(H) 74 - 99 mg/dL 10/25/2023 5:25 PM CDT [facility] SPECIMEN SOURCE, GLUCOSE POC Whole Blood 10/25/2023 5:25 PM CDT [facility] Blood, whole 10/25/2023 5:25 PM CDT 10/25/2023 5:58 PM CDT Edinson Ferrell MD POINT OF CARE TESTIN G [facility] CLIA# [id number] [address] [place] [address] * (ABNORMAL) POC GLUCOSE (10/25/2023 11:42 AM CDT) GLUCOSE POC 122(H) 74 - 99 mg/dL 10/25/2023 11:42 AM CDT [facility] SPECIMEN SOURCE, GLUCOSE POC Whole Blood 10/25/2023 11:42 AM CDT [facility] COMMENT, GLU POC Notified RN/MD 10/25/2023 11:42 AM CDT [facility] Blood, whole 10/25/2023 11:4 2 AM CDT 10/25/2023 11:59 AM CDT Edinson Ferrell MD POINT OF CARE TESTCHRISTY Nguyen [facility] CLIA# [id number] [address] [place] [address] * ECHOCARDIOGRAM W/ CONTRAST AGENT (10/25/2023 7:29 AM CDT) EJECTION FRACTION 65 INTERFACE SYSTEM 10/25/2023 6:58 AM CDT Narrative INTERFACE SYSTEM - 10/25/2023 7:52 AM CDT [address] [address] [email or web address] Echocardiogram Patient: ? Zee MartinezN: ? [id number] Study ID: ?[id number] Gender: ?F : ? 1945 Age: ? 78 Race: ?CAU Height ? 160cm Study Date: ?10/25/2023 Weight: ?60.8kg Access. #: ? [id number] Account #: ? [id number] BP: *Referring Physician:* Tana Schaefer Jacob *Ordering Physician:* ??Tana Schaefer ammonia refrigeration worker: Nurse: Indications: S/P CABG. STUDY CONCLUSIONS: SUMMARY: - Left ventricle: The cavity size was normal. Wall thickness was increased in ??a pattern of mild LVH. Paradoxical septal wall motion. Global systolic ??function is normal. The estimated ejection fraction is 65-70%. Abnormal ??relaxation with increased filling pressures. - Right ventricle: Not well visualized. The cavity size is grossly normal. ??Systolic function appears grossly normal. - Tricuspid valve: Mild regurgitation. Cardiac Anatomy: Left ventricle: ??The cavity size was normal. Wall thickness was increased in a pattern of mild LVH. Paradoxical septal wall motion. Global systolic function is normal. The estimated ejection fraction is 65-70%. Abnormal relaxation with increased filling pressures. LEFT VENTRICLE: ??The cavity size was normal. Wall thickness was increased in a pattern of mild LVH. Paradoxical septal wall motion. Global systolic function is normal. The estimated ejection fraction is 65-70%. Abnormal relaxation with increased filling pressures. AORTIC VALVE: ??Not well visualized. The valve appears to be grossly normal. Cusp separation is normal. ??There was no stenosis. ?No significant regurgitation. The mean systolic gradient is 4mm Hg. The peak systolic gradient is 7mm Hg. The LVOT to aortic valve VTI ratio is 0.89. The valve area is 2.5cm^2. The ratio of LVOT to aortic valve peak velocity is 0.9. AORTA: Aortic root: The root is normal-sized. MITRAL VALVE: ?? Structurally normal valve. ?No significant regurgitation. The mean diastolic gradient is 1mm Hg. The peak diastolic gradient is 1mm Hg. LEFT ATRIUM: ??The atrium is normal in size. RIGHT VENTRICLE: ??Not well visualized. The cavity size is normal. Systolic function appears grossly normal. PULMONIC VALVE: ??Not visualized. TRICUSPID VALVE: ?? Structurally normal valve. ?Mild regurgitation. PULMONARY ARTERY: ??Systolic pressure could not be estimated given IVC not visualized to estimate RA pressure. RIGHT ATRIUM: ??The atrium was normal in size. SYSTEMIC VEINS: Inferior vena cava: The IVC is not visualized. PERICARDIUM: ?? There is no pericardial effusion. Measurements Left ventricle ? Value ?Ref ? 09/21/2023 E', lat john, TDI ? (L) 2.1 ?? cm/sec ?? >=10.0 ?12.0 E/e', lat john, TDI ?? (H) 29 ? <=13 ?7 E', med john, TDI ? (L) 4.1 ?? cm/sec ?? >=7.0 ? 7.3 E/e', med john, TDI ? 15 ? --------- 12 E', avg, TDI ? 3.1 ?? cm/sec ?? --------- 9.6 E/e', avg, TDI ? (H) 19 ? <=14 ?9 LVOT ? Value ?Ref ? 09/21/2023 Diam, S ?1.9 ?? cm ? --------- 2.0 Area ? 2.8 ?? cm^2 ? --------- 3.1 Peak lance, S ?1.22 ??m/sec ?--------- 0.83 VTI, S ? 22.6 ??cm ? --------- 20.0 Peak grad, S ? 6 ? mm Hg ?--------- Right ventricle ?Value ?Ref ? 09/21/2023 TAPSE, MM ?(L) 0.5 ?? cm ? >=1.7 ? 1.9 Pressure, S ?26 ?mm Hg ?--------- 30 S' lateral ? (L) 6.7 ?? cm/sec ?? >=9.5 ? 12.1 Left atrium ?Value ?Ref ? 09/21/2023 AP dim, ES ? (N) 3.5 ?? cm ? 2.7 - 3.8 3.7 AP dim index, ES ? (N) 2.1 ?? cm/m^2 ?? 1.5 - 2.3 2.2 SI dim, A4C ?4.3 ?? cm ? --------- 4.2 Area ES, A4C ? (N) 16 ?cm^2 ? <=20 ?13 Area/bsa ES, A4C ? 9.75 ??cm^2/m^2 --------- 7.82 SI dim, A2C ?4.5 ?? cm ? --------- 5.4 SI dim, shorter ?4.3 ?? cm ? --------- 4.2 Vol, ES, 1-p A4C ? (N) 46 ?ml ? 22 - 52 ?? 29 Vol/bsa, ES, 1-p A4C (N) 28 ?ml/m^2 ?? 11 - 40 ?? 17 Vol, ES, 1-p A2C ? (N) 49 ?ml ? 22 - 52 ?? 38 Vol/bsa, ES, 1-p A2C (N) 30 ?ml/m^2 ?? 13 - 40 ?? 23 Vol, ES, 2-p ? 48 ?ml ? --------- Vol/bsa, ES, 2-p ? (N) 30 ?ml/m^2 ?? 16 - 34 ?? LA/Ao root ratio ? 1.09 ? --------- 1.42 Aortic valve ? Value ?Ref ? 09/21/2023 Peak v, S ?1.4 ?? m/sec ?--------- 1.2 Mean v, S ?0.99 ??m/sec ?--------- 0.8 VTI, S ? 25.3 ??cm ? --------- 28.2 Mean grad, S ? 4 ? mm Hg ?--------- 3 Peak grad, S ? 7 ? mm Hg ?--------- 6 LVOT/AV, VTI ratio ? 0.89 ? --------- 0.71 ORLIN, VTI ? 2.5 ?? cm^2 ? --------- 2.2 ORLIN/bsa, VTI ? 1.56 ??cm^2/m^2 --------- 1.35 LVOT/AV, Vpeak ratio ? 0.9 ?--------- 0.71 ORLIN, Vmax ?2.6 ?? cm^2 ? --------- 2.2 ORLIN/bsa, Vmax ?1.56 ??cm^2/m^2 --------- 1.35 Mitral valve ? Value ?Ref ? 09/21/2023 Mean v, D ?0.47 ??m/sec ?--------- Peak E ? 0.6 ?? m/sec ?--------- 0.89 Peak A ? 0.44 ??m/sec ?--------- 0.7 Decel time ? 215 ?? ms ? --------- 162 Mean grad, D ? 1 ? mm Hg ?--------- Peak grad, D ? 1 ? mm Hg ?--------- 3 Peak E/A ratio ? 1.4 ?--------- 1.3 A-VTI ?18.8 ??cm ? --------- Tricuspid valve ?Value ?Ref ? 09/21/2023 TR peak v ?(N) 2.3 ?? m/sec ?<=2.8 ? 1.2 Peak RV-RA grad, S ? 21 ?mm Hg ?--------- 25 Aortic root ?Value ?Ref ? 09/21/2023 Root diam, ? 3.2 ?? cm ? --------- 2.6 Legend: (L) ??and ??(H) ??berny values outside specified reference range. (N) ??gifford values inside specified reference range. Procedure data: Procedure information: ??A transthoracic echocardiogram was performed. Scanning was performed from the parasternal, apical, and subcostal acoustic windows. Intravenous contrast (Definity) was administered to enhance regional wall motion assessment and better define the endocardial border. Transthoracic echocardiogram. ??Complete 2D, complete spectral Doppler, and color Doppler. ??Birthdate: ??Patient birthdate: 1945. ??Age: ??Patient is 78year(s) old. ??Sex: ?? gender: female. ??Height: ??160cm. 63in. ??Weight: 60.8kg. 134lb. ??Body mass index: ??23.7kg/m^2. ??Body surface area: ?1.63m^2. Study date: ??Study date: 10/25/2023. Study time: 06:58 AM. ?Prepared and Electronically Authenticated Haylee Rosario [id number] Procedure Note Haylee Rosario MD - 10/25/[address] [address] [email or web address] Transthoracic Echocardiogram Patient: Zee Martinez Study ID: [id number] Gender: F :1945 Age: 78 Race: [facility] Height 160cm Study Date:10/25/2023 Weight: 60.8kg Access. #:[id number] BP: *Referring Physician:* Tana Schaefer Jacob *Ordering Physician:* Tana Schaefer ammonia refrigeration worker: Nurse: Indications: S/P CABG. STUDY CONCLUSIONS: SUMMARY: - Left ventricle: The cavity size was normal. Wall thickness was increasedin a pattern of mild LVH. Paradoxical septal wall motion. Global systolic function is normal. The estimated ejection fraction is 65-70%.Abnormal relaxation with increased filling pressures. - Right ventricle: Not well visualized. The cavity size is grosslynormal. Systolic function appears grossly normal. - Tricuspid valve: Mild regurgitation. Cardiac Anatomy: Left ventricle: The cavity size was normal. Wall thickness was increasedin a pattern of mild LVH. Paradoxical septal wall motion. Global systolicfunction is normal. The estimated ejection fraction is 65-70%. Abnormal relaxationwith increased filling pressures. LEFT VENTRICLE: The cavity size was normal. Wall thickness was increasedin a pattern of mild LVH. Paradoxical septal wall motion. Global systolicfunction is normal. The estimated ejection fraction is 65-70%. Abnormal relaxationwith increased filling pressures. AORTIC VALVE: Not well visualized. The valve appears to be grosslynormal. Cusp separation is normal. There was no stenosis. No significant regurgitation. The mean systolic gradient is 4mm Hg. The peak systolic gradient is 7mm Hg. The LVOT to aortic valve VTI ratio is 0.89. The valvearea is 2.5cm^2. The ratio of LVOT to aortic valve peak velocity is 0.9. AORTA: Aortic root: The root is normal-sized. MITRAL VALVE: Structurally normal valve. No significantregurgitation. The mean diastolic gradient is 1mm Hg. The peak diastolic gradient is 1mmHg. LEFT ATRIUM: The atrium is normal in size. RIGHT VENTRICLE: Not well visualized. The cavity size is normal.Systolic function appears grossly normal. PULMONIC VALVE: Not visualized. TRICUSPID VALVE: Structurally normal valve. Mild regurgitation. PULMONARY ARTERY: Systolic pressure could not be estimated given IVCnot visualized to estimate RA pressure. RIGHT ATRIUM: The atrium was normal in size. SYSTEMIC VEINS: Inferior vena cava: The IVC is not visualized. PERICARDIUM: There is no pericardial effusion. Measurements Left ventricle Value Ref 09/21/2023 E', lat john, TDI (L) 2.1 cm/sec >=10.0 12.0 E/e', lat john, TDI (H) 29 <=13 7 E', med john, TDI (L) 4.1 cm/sec >=7.0 7.3 E/e', med john, TDI 15 --------- 12 E', avg, TDI 3.1 cm/sec --------- 9.6 E/e', avg, TDI (H) 19 <=14 9 LVOT Value Ref 09/21/2023 Diam, S 1.9 cm --------- 2.0 Area 2.8 cm^2 --------- 3.1 Peak lance, S 1.22 m/sec --------- 0.83 VTI, S 22.6 cm --------- 20.0 Peak grad, S 6 mm Hg --------- Right ventricle Value Ref 09/21/2023 TAPSE, MM (L) 0.5 cm >=1.7 1.9 Pressure, S 26 mm Hg --------- 30 S' lateral (L) 6.7 cm/sec >=9.5 12.1 Left atrium Value Ref 09/21/2023 AP dim, ES (N) 3.5 cm 2.7 - 3.8 3.7 AP dim index, ES (N) 2.1 cm/m^2 1.5 - 2.3 2.2 SI dim, A4C 4.3 cm --------- 4.2 Area ES, A4C (N) 16 cm^2 <=20 13 Area/bsa ES, A4C 9.75 cm^2/m^2 --------- 7.82 SI dim, A2C 4.5 cm --------- 5.4 SI dim, shorter 4.3 cm --------- 4.2 Vol, ES, 1-p A4C (N) 46 ml 22 - 52 29 Vol/bsa, ES, 1-p A4C (N) 28 ml/m^2 11 - 40 17 Vol, ES, 1-p A2C (N) 49 ml 22 - 52 38 Vol/bsa, ES, 1-p A2C (N) 30 ml/m^2 13 - 40 23 Vol, ES, 2-p 48 ml --------- Vol/bsa, ES, 2-p (N) 30 ml/m^2 16 - 34 LA/Ao root ratio 1.09 --------- 1.42 Aortic valve Value [facility] 09/21/2023 Peak v, S 1.4 m/sec --------- 1.2 Mean v, S 0.99 m/sec --------- 0.8 VTI, S 25.3 cm --------- 28.2 Mean grad, S 4 mm Hg --------- 3 Peak grad, S 7 mm Hg --------- 6 LVOT/AV, VTI ratio 0.89 --------- 0.71 ORLIN, VTI 2.5 cm^2 --------- 2.2 ORLIN/bsa, VTI 1.56 cm^2/m^2 --------- 1.35 LVOT/AV, Vpeak ratio 0.9 --------- 0.71 ORLIN, Vmax 2.6 cm^2 --------- 2.2 ORLIN/bsa, Vmax 1.56 cm^2/m^2 --------- 1.35 Mitral valve Value [facility] 09/21/2023 Mean v, D 0.47 m/sec --------- Peak E 0.6 m/sec --------- 0.89 Peak A 0.44 m/sec --------- 0.7 Decel time 215 ms --------- 162 Mean grad, D 1 mm Hg --------- Peak grad, D 1 mm Hg --------- 3 Peak E/A ratio 1.4 --------- 1.3 A-VTI 18.8 cm --------- Tricuspid valve Value Ref 09/21/2023 TR peak v (N) 2.3 m/sec <=2.8 1.2 Peak RV-RA grad, S 21 mm Hg --------- 25 Aortic root Value Ref 09/21/2023 Root diam, 3.2 cm --------- 2.6 Legend: (L) and (H) berny values outside specified reference range. (N) gifford values inside specified reference range. Procedure data: Procedure information: A transthoracic echocardiogram was performed.Scanning was performed from the parasternal, apical, and subcostal acousticwindows. Intravenous contrast (Definity) was administered to enhance regionalwall motion assessment and better define the endocardial border. Transthoracic echocardiogram. Complete 2D, complete spectral Doppler,and color Doppler. Birthdate: Patient birthdate: 1945. Age: Patientis 78year(s) old. Sex: gender: female. Height: 160cm. 63in.Weight: 60.8kg. 134lb. Body mass index: 23.7kg/m^2. Body surface area:1.63m^2. Study date: Study date: 10/25/2023. Study time: 06:58 AM. Preparedand Electronically Authenticated Haylee Rosario [id number] Tana Schaefer PA-C US ORDERABLES INTERFACE SYSTEM Refer to clinic/hospital department * (ABNORMAL) POC GLUCOSE (10/25/2023 7:25 AM CDT) GLUCOSE POC 109(H) 74 - 99 mg/dL 10/25/2023 7:25 AM CDT [facility] SPECIMEN SOURCE, GLUCOSE POC Whole Blood 10/25/2023 7:25 AM T [facility] COMMENT, GLU POC Notified RN/MD 10/25/2023 7:25 AM CDT [facility] LABORATORY [facility] Blood, whole 10/25/2023 7:25 AM CDT 10/25/2023 8:01 AM CDT Edinson Ferrell MD POINT OF CARE TESTIN G [facility] CLIA# [id number] [address] [place] [address] * XR CHEST PA OR AP 1 VW (10/25/2023 6:23 AM CDT) Anatomical Region Laterality Modality Chest Computed Radiogr aphy 10/25/2023 6:23 AM CDT Impressions 10/25/2023 5:34 PM CDT : Removal of mediastinal drains and left-sided chest tube. No pneumothorax. New small bilateral pleural effusions. There is also new bilateral basilar atelectasis. DICTATION LOCATION: Location 2 - [facility] Narrative 10/25/2023 5:34 PM CDT XR CHEST PA OR AP 1 VW DATE: 10/25/2023 6:23 AM HISTORY: Post-Operative, POD#3. ?? Pre-op testing; Chronic diastolic congestive heart failure. ?? COMPARISON: October 23, 2023. FINDINGS: Heart and mediastinum are unchanged. Heart is normal in size. Postoperative changes are seen status post median sternotomy. There are calcifications of the thoracic aorta. The mediastinum is otherwise unremarkable. Mediastinal drains have been removed. Left-sided chest tube has been removed. Right IJ catheter remains in place. There is no pneumothorax. There are small bilateral pleural effusions and there is bilateral basilar atelectasis. Tana Schaefer PA-C DIAGNOSTIC IMAG ING ORDERABLES * (ABNORMAL) MANUAL DIFFERENTIAL (10/25/2023 4:09 AM CDT) SEGMENTED NEUTROPHILS 77 % 10/25/2023 6:05 AM CDT [facility] LYMPHOCYTES RELATIVE 7(L) 43 - 53 % 10/25/2023 6:05 AM [facility] LABORAT[facility] SERVICES [facility] [place] ATYPICAL LYMPHOCYTES RELATIVE 1 0 - 5 % 10/25/2023 6:05 AM [facility] SERVICES - [facility] [place] MONOCYTES RELATIVE 16 % 10/25/2023 6:05 AM [facility] SERVICES [facility] NEUTROPHILS ABSOLUTE COUNT 19.02(H) 1.90 - 7.00 K/uL 10/25/2023 6:05 AM T [facility] LABORATORY SERVICES [facility] LYMPHOCYTES ABSOLUTE 1.69 0.70 - 4.50 K/uL 10/25/2023 6:05 AM [facility] SERVICES [facility] [place] MONOCYTES ABSOLUTE 3.85(H) 0.10 - 1.30 K/uL 10/25/2023 6:05 AM [facility] LABORATORY SERVICES - . [facility] TOTAL CELLS COUNTED IN DIFF 103 10/25/2023 6:05 AM [facility] - . [facility] RBC MORPHOLOGY abnormal 10/25/2023 6:05 AM [facility] - . [place] PLATELET EST. Consistent w Count 10/25/2023 6:05 AM [facility] ANISOCYTOSIS 1+ /hpf 10/25/2023 6:05 AM [facility] LABORATORY [facility] [place] POIKILOCYTES 1+ /hpf 10/25/2023 6:05 AM [facility] LAB[facility] . [place] CRENATED RBCS Present 10/25/2023 6:05 AM [facility] LABOR[facility]ORY [facility] [place] Blood Venipuncture / Unknown 10/25/2023 4:09 AM CDT 10/25/2023 4:14 AM CDT Tana Schaefer PA-C HEMATOLOGY ORDE Architectural Daily [facility] CLIA# [id number] [address] [place] [address] * (ABNORMAL) BASIC METABOLIC PANEL (10/25/2023 4:09 AM CDT) [facility] Signature SODIUM 135(L) 136 - 145 mmol/L 10/25/2023 4:56 AM [facility] POTASSIUM 3.7 3.5 - 5.0 mmol/L 10/25/2023 4:56 AM [facility] CHLORIDE 101 98 - 107 mmol/L 10/25/2023 4:56 AM [facility] - . [facility] CO2 24 22 - 29 mmol/L 10/25/2023 4:56 AM [facility] CALCIUM 8.8 8.6 - 10.2 mg/dL 10/25/2023 4:56 AM [facility] BUN 34(H) 8 - 23 mg/dL 10/25/2023 4:56 AM [facility] CREATININE 1.14(H) 0.51 - 0.95 mg/dL 10/25/2023 4:56 AM [facility] Comment:The GFR result is no t clinically significant on patients <18 or >70 years of age. GLUCOSE 105(H) 74 - 99 mg/dL 10/25/2023 4:56 AM [facility] GFR 49 mL/min/1.7 3 sq meter 10/25/2023 4:56 AM [facility] Comment:eGFR calculated with 2020 CKD-EPI equation. Vegetarian diet, extremely high or low muscle mass, and may affect results. Cystatin C with Glomerular Filtration Rate is a suitable alternative for these patients. ANION GAP 10 8 - 16 mmol/L 10/25/2023 4:56 AM [facility] Blood Venipuncture / Unknown 10/25/2023 4:09 AM CDT 10/25/2023 4:14 AM T Tana Schaefer PA-C CHEMISTRY ORDER [place] [facility] CLIA# [id number] [address] [place] [place] [address] * (ABNORMAL) CBC WITH DIFFERENTIAL (10/25/2023 4:09 AM CDT) Pathologist [facility] WBC 24.8(H) 4.0 - 9.8 K/uL 10/25/2023 5:09 AM T [facility] SERVICES [facility] RBC 3.48(L) 3.90 - 4.90 M/uL 10/25/2023 5:09 AM T [facility] HEMOGLOBIN 10.5(L) 11.8 - 14.8 g/dL 10/25/2023 5:09 AM T [facility] Comment:Significant change f rom prior result, correlate clinically and redraw if necessary. HEMATOCRIT 31.3(L) 35.5 - 44.0 % 10/25/2023 5:09 AM T [facility] MCV 89.9 82.0 - 99.0 fL 10/25/2023 5:09 AM T [facility] MCH 30.2 27.2 - 32.6 pg 10/25/2023 5:09 AM T [facility] MCHC 33.5 31.5 - 35.5 g/dL 10/25/2023 5:09 AM T [facility] RDW 15.1(H) 11.5 - 14.5 % 10/25/2023 5:09 AM T [facility] RDW-STDEV 49.2(H) 37.1 - 48.7 fL 10/25/2023 5:09 AM T [facility] PLATELETS 164 140 - 350 K/uL 10/25/2023 5:[address] [facility] MPV 12.0 9.3 - 12.4 fL 10/25/2023 5:09 AM T [facility] Blood Venipuncture / Unknown 10/25/2023 4:09 AM CDT 10/25/2023 4:14 AM CDT Tana Schaefer PA-C HEMATOLOGY [facility]# [id number] [address] [place] [address] * (ABNORMAL) POC GLUCOSE (10/24/2023 8:06 PM CDT) GLUCOSE POC 146(H) 74 - 99 mg/dL 10/24/2023 8:06 PM CDT [facility] LABORATORY [facility] SPECIMEN SOURCE, GLUCOSE POC Whole Blood 10/24/2023 8:06 PM CDT [facility]ORATORY [facility] Blood, whole 10/24/2023 8:06 PM CDT 10/24/2023 8:14 PM CDT Edinson Ferrell MD POINT OF CARE TESTIN G Performing Organization Address City/[facility]/ZIP Co de Phone Number [facility]# [id number] [address] [place] [address] * (ABNORMAL) POC GLUCOSE (10/24/2023 4:49 PM CDT) GLUCOSE POC 112(H) 74 - 99 mg/dL 10/24/2023 4:49 PM CDT [facility] LABORATORY [facility] SPECIMEN SOURCE, GLUCOSE POC Whole Blood 10/24/2023 4:49 PM CDT [facility] LABORATORY [facility] COMMENT, GLU POC Notified RN/MD 10/24/2023 4:49 PM CDT [facility]AT[facility] Blood, whole 10/24/2023 4:49 PM CDT 10/24/2023 5:29 PM CDT Edinson Ferrell MD POINT OF CARE TESTIN G [facility]# [id number] [address] [place] [address] * TRANSFUSE RED BLOOD CELLS (10/24/2023 1:45 PM CDT) Tana Schaefer PA-C BLOOD TRANSFUSI ON ORDERABLES * TRANSFUSE RED BLOOD CELLS (10/24/2023 1:45 PM CDT) Tana Schaefer PA-C BLOOD TRANSFUSI ON ORDERABLES * (ABNORMAL) POC GLUCOSE (10/24/2023 11:59 AM CDT) GLUCOSE POC 132(H) 74 - 99 mg/dL 10/24/2023 11:59 AM CDT [facility] LABORATORY SERVICES - [facility] SPECIMEN SOURCE, GLUCOSE POC Whole Blood 10/24/2023 11:59 AM CD[address] [facility] - [facility] COMMENT, GLU POC Notified RN/MD 10/24/2023 11:59 AM CDT [facility]ORY SERVICES - [facility] Blood, whole 10/24/2023 11:5 9 AM CDT 10/24/2023 5:25 PM CDT Edinson Ferrell MD POINT OF CARE TESTIN G [facility] LABORATORY SERVICES [facility] CLIA# [id number] [address] [place] [address] * TYPE AND SCREEN (10/24/2023 9:35 AM CDT) Pathologist [facility] ABO GROUP O 10/24/2023 10:57 AM CDT [facility] LABORATORY SERVICES -- [facility] RH (D) TYPE Positive 10/24/2023 10:57 AM CDT [facility] -- [facility] ANTIBODY SCREEN Negative 10/24/2023 10:57 AM CDT [facility] LABORATORY SERVICES -- [facility] Blood Venipuncture / Unknown 10/24/2023 9:35 AM CDT 10/24/2023 9:39 AM CDT Tana Schaefer PA-C BLOOD BANK [facility] LABORATORY [facility] CLIA# [id number] [address] [place] [address] * PREPARE RED BLOOD CELLS (10/24/2023 8:54 AM CDT) Pathologist [facility] COMPONENT TYPE [id number] [facility] LABORATORY SERVICES -- [facility] COMPONENT IDENTIFICATION [id number] [facility] LABORATORY SERVICES -- [facility] [facility] ABO O [facility] LABORATORY SERVICES -- .[facility] UNIT RH NEG [facility]ORATORY SERVICES -- [facility] CROSSMATCH Compatible [facility] LABORATORY SERVICES -- .[place] COMPONENT STATUS Transfused ME [facility] LABORATORY SERVICES -- [facility] COMPONENT EXPIRATION DATE/TIME [id number] [facility] LABORATORY SERVICES -- [facility] COMPONENT CODING SYSTEM 9500 [facility] LABORATORY SERVICES -- .[facility] VOLUME, BLOOD PRODUCT 350 [facility] LABORATORY SERVICES -- .[facility] Other, specify 10/24/2023 8: 54 AM CDT Tana Schaefer PA-C LAB TRANSFUSION ORDERABLES [facility] LABORATORY SERVICES -- [facility] CLIA# [id number] [address] [place] [address] * (ABNORMAL) POC GLUCOSE (10/24/2023 8:11 AM CDT) [facility] GLUCOSE POC 110(H) 74 - 99 mg/dL 10/24/2023 8:11 AM CDT [facility] LABORATORY SERVICES - [facility] SPECIMEN SOURCE, GLUCOSE POC Whole Blood 10/24/2023 8:11 AM CDT [facility] LABORATORY [facility] Blood, whole 10/24/2023 8:11 AM CDT 10/24/2023 8:41 AM CDT Edinson Ferrell MD POINT OF CARE TESTIN G [facility] CLIN# [id number] [address] [place] [address] * EKG 12-LEAD (10/24/2023 7:07 AM CDT) 10/24/2023 7:07 AM CDT Narrative INTERFACE SYSTEM - 10/24/2023 8:39 AM CDT ? [facility] ? [address], [place] [address] ? Test Date: ?2023-10-24 Pat Name: ? ZEE MARTINEZ ? Department: ?? 60 ?Room: ? 4090 1 Gender: ? Female ? Rotary Soil Stabilizer: ?? [id number] : ?1945 ? Requested By: SARBJIT BROOKS S Order Number: [id number] ? Reading MD: ?? Jovana Bryan ? Measurements Intervals ?Papillion ? Rate: ? 120 ?P: ?0 NE: ? 0 ?QRS: ?22 QRSD: ? 77 ? T: ?83 QT: ? 294 ? QTc: ?415 ? Interpretive Statements ATRIAL FIBRILLATION WITH RAPID VENTRICULAR RESPONSE NONSPECIFIC T-WAVE ABNORMALITY ABNORMAL RHYTHM ECG Electronically Signed On 10-24-2023 8:39:51 CDT by Jovana Bryan Procedure Note Jovana Bryan MD - 10/24/2023 [facility] [address] [place] [address] Test Date: 2023-10-24 Pat Name: ZEE MARTINEZ Department: 60 Room: [facility] 1 Gender: Female [employer]: [id number] : [id number] Requested By: SARBJIT Martinez Order Number: [id number] Reading MD: Jovana Bryan Measurements Intervals [place] Rate: 120 P: 0 NE: 0 QRS: 22 QRSD: 77 T: 83 QT: 294 QTc: 415 Interpretive Statements ATRIAL FIBRILLATION WITH RAPID VENTRICULAR RESPONSE NONSPECIFIC T-WAVE ABNORMALITY ABNORMAL RHYTHM ECG Electronically Signed On 10-24-2023 8:39:51 CDT by Jovana Bryan Tana Schaefer PA-C ECG ORDERABLES INTERFACE SYSTEM Refer to clinic/hospital department * (ABNORMAL) BLOOD GAS VENOUS (10/24/2023 4:56 AM CDT) Pathologist [facility] PH BLOOD POC 7.38 7.32 - 7.43 10/24/2023 4:56 AM CDT [facility] PCO2 POC 41 38 - 50 mm Hg 10/24/2023 4:56 AM [facility] PO2 POC 37 25 - 40 mm Hg 10/24/2023 4:56 AM [facility] HCO3 (CALC) POC 24 22 - 29 mmol/L 10/24/2023 4:56 AM [facility] HEMOGLOBIN POC 9.1(L) 11.8 - 14.8 g/dL 10/24/2023 4:56 AM [facility] [employer] LABORATORY SERVICES - . [place] BASE EXCESS POC -1 No Reference Range Established mmol/L 10/24/2023 4:56 AM [facility] [employer] [facility]. [place] O2 SATURATION POC 65 40 - 70 % 10/24/2023 4:56 AM [facility] [employer] [facility]. [facility] HEMATOCRIT POC 27(L) 35 - 44 % 10/24/2023 4:56 AM [facility] [employer] LABORATORY SERVICES - . [facility] Comment:Estimated Value PH TEMP CORRECT 7.38 7.32 - 7.43 10/24/2023 4:56 AM [facility] LABORATORY [facility] - . [place] PCO2 TEMP CORRECT 41 38 - 50 mm Hg 10/24/2023 4:56 AM [facility] LABORATORY [facility] - . [facility] PO2 TEMP CORRECT 37 25 - 40 mm Hg 10/24/2023 4:56 AM [facility] LABORATORY [facility]. [facility] SPECIMEN SOURCE, GASES POC Venous 10/24/2023 4:56 AM [facility] [employer] LABORATORY SERVICES - . [place] COMMENT, GASES POC Responsible Clinical Caregiver notified 10/24/2023 4:56 AM [facility] [employer] LABORATORY SERVICES - . [facility] TCO2 (CALC) POC 26 22 - 26 mmol/L 10/24/2023 4:56 AM [facility] [employer] LABORATORY [facility] - . [place] FIO2 21.0 21.0 - 100.0 % 10/24/2023 4:56 AM [facility] [employer] LABORATORY [facility] - . [facility] PATIENT'S TEMPERATURE POC 37.0 degrees 10/24/2023 4:56 AM [facility] [employer] LABORATORY [facility] - . [place] Blood, venous 10/24/2023 4:5 6 AM CDT 10/24/2023 4:57 AM CDT Edinson Ferrell MD ABG ORDERABLES [facility] LABORATORY SERVICES - [facility]# [id number] [address] [place] [address] * (ABNORMAL) MANUAL DIFFERENTIAL (10/24/2023 4:53 AM CDT) SEGMENTED NEUTROPHILS 81 % 10/24/2023 7:55 AM CDT [employer] LABORATORY SERVICES - . [facility] LYMPHOCYTES RELATIVE 4(L) 43 - 53 % 10/24/2023 7:55 AM CDT [facility] [employer] SERVICES - . [place] MONOCYTES RELATIVE 15 % 10/24/2023 7:55 AM CDT [facility] LABORATORY SERVICES - . [facility] NEUTROPHILS ABSOLUTE COUNT 23.39(H) 1.90 - 7.00 K/uL 10/24/2023 7:55 AM CDT [facility] [employer] SERVICES - . [facility] LYMPHOCYTES ABSOLUTE 1.06 0.70 - 4.50 K/uL 10/24/2023 7:55 AM CDT [facility] LABORATORY SERVICES - . [facility] MONOCYTES ABSOLUTE 4.25(H) 0.10 - 1.30 K/uL 10/24/2023 7:55 AM CDT [facility] LABORATORY SERVICES - . [facility] TOTAL CELLS COUNTED IN DIFF 108 10/24/2023 7:55 AM CDT [facility] LABORATORY SERVICES - . [facility] RBC MORPHOLOGY abnormal 10/24/2023 7:55 AM CDT [facility] LABORATORY SERVICES - . [facility] PLATELET EST. Consistent w Count 10/24/2023 7:55 AM CDT [employer] LABORATORY SERVICES - . [facility] ANISOCYTOSIS 1+ /hpf 10/24/2023 7:55 AM CDT [employer] LABORATORY SERVICES - . [facility] POIKILOCYTES 1+ /hpf 10/24/2023 7:55 AM CDT [facility] LABORATORY SERVICES - . [facility] CRENATED RBCS Present 10/24/2023 7:55 AM T [facility] LABORATORY SERVICES - . [facility] Blood Venipuncture / Unknown 10/24/2023 4:53 AM CDT 10/24/2023 4:58 AM CDT Tana Schaefer PA-C HEMATOLOGY [employer] [facility] LABORATORY SERVICES [facility] WAN# [id number] [address] [facility] [place] [address] [place] [address] * (ABNORMAL) BASIC METABOLIC PANEL (10/24/2023 4:53 AM CDT) SODIUM 136 136 - 145 mmol/L 10/24/2023 6:34 AM [facility] LABORATORY [facility] - [facility] POTASSIUM 4.2 3.5 - 5.0 mmol/L 10/24/2023 6:34 AM [facility] CHLORIDE 102 98 - 107 mmol/L 10/24/2023 6:34 AM [facility] CO2 24 22 - 29 mmol/L 10/24/2023 6:34 AM [facility] CALCIUM 8.8 8.6 - 10.2 mg/dL 10/24/2023 6:34 AM [facility] BUN 34(H) 8 - 23 mg/dL 10/24/2023 6:34 AM [facility] CREATININE 1.48(H) 0.51 - 0.95 mg/dL 10/24/2023 6:34 AM [facility] Comment:The GFR result is no t clinically significant on patients <18 or >70 years of age. GLUCOSE 119(H) 74 - 99 mg/dL 10/24/2023 6:34 AM [facility] GFR 36 mL/min/1.7 3 sq meter 10/24/2023 6:34 AM [facility] Comment:eGFR calculated with 2020 CKD-EPI equation. Vegetarian diet, extremely high or low muscle mass, and may affect results. Cystatin C with Glomerular Filtration Rate is a suitable alternative for these patients. ANION GAP 10 8 - 16 mmol/L 10/24/2023 6:34 AM [facility] Blood Venipuncture / Unknown 10/24/2023 4:53 AM CDT 10/24/2023 4:58 AM CDT Tana Schaefer PA-C CHEMISTRY ORDER [place] [facility] LABORATORY SERVICES - [facility] CLIA# [id number] [address] [facility] [place] [place] [address] * (ABNORMAL) CBC WITH DIFFERENTIAL (10/24/2023 4:53 AM CDT) WBC 28.7(H) 4.0 - 9.8 K/uL 10/24/2023 5:21 AM CDT [employer] LABORATORY SERVICES - [facility] RBC 2.89(L) 3.90 - 4.90 M/uL 10/24/2023 5:21 AM CDT [employer] LABORATORY SERVICES - [facility] HEMOGLOBIN 8.7(L) 11.8 - 14.8 g/dL 10/24/2023 5:21 AM CDT [employer] LABORATORY SERVICES - [facility] HEMATOCRIT 26.6(L) 35.5 - 44.0 % 10/24/2023 5:21 AM CDT [employer] LABORATORY SERVICES - . [facility] MCV 92.0 82.0 - 99.0 fL 10/24/2023 5:21 AM CDT [employer] LABORATORY SERVICES - [facility] MCH 30.1 27.2 - 32.6 pg 10/24/2023 5:21 AM CDT [employer] LABORATORY SERVICES - [facility] MCHC 32.7 31.5 - 35.5 g/dL 10/24/2023 5:21 AM CDT [employer] LABORATORY SERVICES - [facility] RDW 14.6(H) 11.5 - 14.5 % 10/24/2023 5:21 AM CDT [employer] LABORATORY SERVICES - [facility] RDW-STDEV 49.5(H) 37.1 - 48.7 fL 10/24/2023 5:21 AM CDT [employer] LABORATORY SERVICES - . [facility] PLATELETS 148 140 - 350 K/uL 10/24/2023 5:21 AM CDT [employer] LABORATORY SERVICES - [facility] MPV 11.9 9.3 - 12.4 fL 10/24/2023 5:21 AM CDT [facility] LABORATORY SERVICES [facility] Blood Venipuncture / Unknown 10/24/2023 4:53 AM CDT 10/24/2023 4:58 AM CDT Tana Schaefer PA-C HEMATOLOGY JAMES ROXANNEMASON Performing Organization Address City/[facility]/ZIP Co de Phone Number [facility]# [id number] [address] [place] [address] * (ABNORMAL) POC GLUCOSE (10/23/2023 10:24 PM CDT) GLUCOSE POC 189(H) 74 - 99 mg/dL 10/23/2023 10:24 PM CDT [facility] LABORATORY [facility] SPECIMEN SOURCE, GLUCOSE POC Whole Blood 10/23/2023 10:24 PM CDT [facility] LABORATORY [facility] Blood, whole 10/23/2023 10:2 4 PM CDT 10/24/2023 1:03 PM CDT Edinson Ferrell MD POINT OF CARE TESTIN G [facility]# [id number] [address] [place] [address] * (ABNORMAL) POC GLUCOSE (10/23/2023 8:26 PM CDT) GLUCOSE POC 240(H) 74 - 99 mg/dL 10/23/2023 8:26 PM CDT [facility] LABORATORY [facility] SPECIMEN SOURCE, GLUCOSE POC Whole Blood 10/23/2023 8:26 PM CDT [facility] LABORATORY [facility] COMMENT, GLU POC Notified RN/MD 10/23/2023 8:26 PM CDT [facility] LABORATORY [facility] Blood, whole 10/23/2023 8:26 PM CDT 10/23/2023 8:34 PM CDT Edinson Ferrell MD POINT OF CARE TESTIN G [facility]# [id number] [address] [place] [address] * (ABNORMAL) BLOOD GAS ARTERIAL (10/23/2023 5:52 PM CDT) PH BLOOD POC 7.37 7.35 - 7.45 10/23/2023 5:52 PM CDT [facility] LABORATORY SERVICES - [facility] PCO2 POC 37 35 - 48 mm Hg 10/23/2023 5:52 PM CDT [facility] LABORATORY SERVICES [facility] PO2 POC 75(L) 83 - 108 mm Hg 10/23/2023 5:52 PM CDT [facility] LABORATORY SERVICES [facility] HCO3 (CALC) POC 21(L) 22 - 26 mmol/L 10/23/2023 5:52 PM T [facility] LABORATORY SERVICES [facility] HEMOGLOBIN POC 9.6(L) 11.8 - 14.8 g/dL 10/23/2023 5:52 PM CDT [facility] LABORATORY SERVICES [facility] BASE EXCESS POC -4(L) -2 - 3 mmol/L 10/23/2023 5:52 PM CDT [facility] LABORATORY SERVICES [facility] O2 SATURATION POC 97 94 - 98 % 10/23/2023 5:52 PM CDT [facility] LABORATORY SERVICES [facility] HEMATOCRIT POC 29(L) 35 - 44 % 10/23/2023 5:52 PM CDT [facility] LABORATORY SERVICES [facility] Comment:Estimated Value PH TEMP CORRECT 7.37 7.35 - 7.45 10/23/2023 5:52 PM CDT [facility] LABORATORY SERVICES [facility] PCO2 TEMP CORRECT 37 35 - 48 mm Hg 10/23/2023 5:52 PM CDT [facility] LABORATORY SERVICES [facility] PO2 TEMP CORRECT 75(L) 83 - 108 mm Hg 10/23/2023 5:52 PM CDT [facility] LABORATORY SERVICES [facility] SPECIMEN SOURCE, GASES POC Arterial 10/23/2023 5:52 PM CDT [facility] LABORATORY SERVICES [facility] COMMENT, GASES POC Responsible Clinical Caregiver notified 10/23/2023 5:52 PM CDT [employer] LABORATORY SERVICES - [facility] TCO2 (CALC) POC 23 19 - 24 mmol/L 10/23/2023 5:52 PM CDT [employer] LABORATORY SERVICES - . [facility] FIO2 21.0 21.0 - 100.0 % 10/23/2023 5:52 PM CDT [facility] LABORATORY SERVICES - . [facility] P/F RATIO POC 357 10/23/2023 5:52 PM CDT [employer] LABORATORY SERVICES - [facility] PATIENT'S TEMPERATURE POC 37.0 degrees 10/23/2023 5:52 PM CDT [employer] LABORATORY SERVICES - . [place] PAO2 POC 103 10/23/2023 5:52 PM CDT [employer] LABORATORY SERVICES - . [facility] ARTERIAL/ALVEO LAR O2 RATIO 0.7300 10/23/2023 5:52 PM CDT [employer] LABORATORY SERVICES - [facility] Blood, arterial 10/23/2023 5 :52 PM CDT 10/23/2023 5:54 PM CDT Edinson Ferrell MD ABG ORDERABLES [facility] LABORATORY SERVICES [facility]# [id number] [address] [facility] [place] [address] * (ABNORMAL) MANUAL DIFFERENTIAL (10/23/2023 5:15 PM CDT) SEGMENTED NEUTROPHILS 79 % 10/23/2023 6:29 PM CDT [employer] LABORATORY SERVICES [facility] LYMPHOCYTES RELATIVE 2(L) 43 - 53 % 10/23/2023 6:29 PM CDT [facility] LABORATORY SERVICES - [facility] MONOCYTES RELATIVE 19 % 10/23/2023 6:29 PM CDT [facility] LABORATORY SERVICES [facility] NEUTROPHILS ABSOLUTE COUNT 24.52(H) 1.90 - 7.00 K/uL 10/23/2023 6:29 PM CDT [facility] LABORATORY SERVICES [facility] LYMPHOCYTES ABSOLUTE 0.56(L) 0.70 - 4.50 K/uL 10/23/2023 6:29 PM CDT [employer] LABORATORY SERVICES [facility] MONOCYTES ABSOLUTE 5.92(H) 0.10 - 1.30 K/uL 10/23/2023 6:29 PM CDT [facility] LABORATORY SERVICES - [facility] TOTAL CELLS COUNTED IN DIFF 110 10/23/2023 6:29 PM CDT [facility] LABORATORY SERVICES - . [facility] RBC MORPHOLOGY abnormal 10/23/2023 6:29 PM CDT [facility] LABORATORY SERVICES - . [facility] PLATELET EST. Consistent w Count 10/23/2023 6:29 PM CDT [facility] LABORATORY SERVICES - . [facility] POIKILOCYTES 1+ /hpf 10/23/2023 6:29 PM CDT [facility] LABORATORY SERVICES - [facility] CRENATED RBCS Present 10/23/2023 6:29 PM CDT [facility] LABORATORY SERVICES - [facility] Blood Venipuncture / Unknown 10/23/2023 5:15 PM CDT 10/23/2023 5:40 PM CDT Edinson Ferrell MD HEMATOLOGY ORDERABLE S COM [facility] CLIA# [id number] [address] [place] [address] * MAGNESIUM LEVEL (10/23/2023 5:15 PM CDT) Pathologist [facility] MAGNESIUM 2.4 1.6 - 2.4 mg/dL 10/23/2023 6:23 PM CDT [facility] LABORATORY SERVICES - [facility] Blood Venipuncture / Unknown 10/23/2023 5:15 PM CDT 10/23/2023 5:40 PM CDT Edinson Ferrell MD CHEMISTRY ORDERABLES [facility] CLIA# [id number] [address] [place] [address] * (ABNORMAL) BASIC METABOLIC PANEL (10/23/2023 5:15 PM CDT) SODIUM 135(L) 136 - 145 mmol/L 10/23/2023 6:23 PM T [facility] LABORATORY SERVICES [facility] POTASSIUM 4.8 3.5 - 5.0 mmol/L 10/23/2023 6:23 PM T [facility] LABORATORY [facility] CHLORIDE 103 98 - 107 mmol/L 10/23/2023 6:23 PM T [facility] LABORATORY [facility] CO2 21(L) 22 - 29 mmol/L 10/23/2023 6:23 PM [facility] LABORATORY [facility] CALCIUM 9.0 8.6 - 10.2 mg/dL 10/23/2023 6:23 PM T [facility] LABORATORY [facility] BUN 27(H) 8 - 23 mg/dL 10/23/2023 6:23 PM [facility] LABORATORY [facility] CREATININE 1.29(H) 0.51 - 0.95 mg/dL 10/23/2023 6:23 PM [facility] LABORATORY [facility] Comment:The GFR result is no t clinically significant on patients <18 or >70 years of age. GLUCOSE 162(H) 74 - 99 mg/dL 10/23/2023 6:23 PM [facility] LABORATORY [facility] GFR 42 mL/min/1.7 3 sq meter 10/23/2023 6:23 PM [facility] LABORATORY [facility] Comment:eGFR calculated with 2020 CKD-EPI equation. Vegetarian diet, extremely high or low muscle mass, and may affect results. Cystatin C with Glomerular Filtration Rate is a suitable alternative for these patients. ANION GAP 11 8 - 16 mmol/L 10/23/2023 6:23 PM T [facility] LABORATORY [facility] Blood Venipuncture / Unknown 10/23/2023 5:15 PM CDT 10/23/2023 5:40 PM CDT Edinson Ferrell MD [facility]MISTRY [facility]LES [id number] [address] [facility] [address] [place] [address] * (ABNORMAL) CBC WITH DIFFERENTIAL (10/23/2023 5:15 PM CDT) Pathologist [facility] WBC 31.0(H) 4.0 - 9.8 K/uL 10/23/2023 5:58 PM CDT [facility] LABORATORY SERVICES - [facility] RBC 3.10(L) 3.90 - 4.90 M/uL 10/23/2023 5:58 PM CDT [facility] LABORATORY SERVICES - [facility] HEMOGLOBIN 9.5(L) 11.8 - 14.8 g/dL 10/23/2023 5:58 PM CDT [facility] LABORATORY SERVICES - [facility] HEMATOCRIT 29.0(L) 35.5 - 44.0 % 10/23/2023 5:58 PM CDT [facility] LABORATORY SERVICES - [facility] MCV 93.5 82.0 - 99.0 fL 10/23/2023 5:58 PM CDT [facility] LABORATORY SERVICES - [facility] MCH 30.6 27.2 - 32.6 pg 10/23/2023 5:58 PM CDT [facility] LABORATORY SERVICES - [facility] MCHC 32.8 31.5 - 35.5 g/dL 10/23/2023 5:58 PM CDT [facility] LABORATORY SERVICES - [facility] RDW 14.6(H) 11.5 - 14.5 % 10/23/2023 5:58 PM CDT [facility] LABORATORY SERVICES - [facility] RDW-STDEV 50.3(H) 37.1 - 48.7 fL 10/23/2023 5:58 PM CDT [facility] LABORATORY SERVICES - [facility] PLATELETS 173 140 - 350 K/uL 10/23/2023 5:58 PM CDT [facility] LABORATORY SERVICES - [facility] MPV 12.6(H) 9.3 - 12.4 fL 10/23/2023 5:58 PM CDT [facility] LABORATORY SERVICES - [facility] Blood Venipuncture / Unknown 10/23/2023 5:15 PM CDT 10/23/2023 5:40 PM CDT Edinson Ferrell MD HEMATOLOGY ORDERABLE S [facility] LABORATORY SERVICES - [facility] CLIA# [id number] [address] [facility] [place] [address] * (ABNORMAL) POC GLUCOSE (10/23/2023 5:14 PM CDT) GLUCOSE POC 163(H) 74 - 99 mg/dL 10/23/2023 5:14 PM CDT [facility] SPECIMEN SOURCE, GLUCOSE POC Whole Blood 10/23/2023 5:14 PM CDT [facility] Blood, whole 10/23/2023 5:14 PM CDT 10/23/2023 5:33 PM CDT Edinson Ferrell MD POINT OF CARE TESTIN G [facility] CLIA# [id number] [address] [place] [address] * EKG 12-LEAD (10/23/2023 4:43 PM CDT) 10/23/2023 4:43 PM CDT Narrative INTERFACE SYSTEM - 10/23/2023 4:44 PM CDT ? [facility] ? [address] [place] [address] ? Test Date: ?2023-10-23 Pat Name: ? ZEE MARTINEZ ? Department: ?? 60 ?Room: ? 4090 1 Gender: ? Female ? Rotary Soil Stabilizer: ?? [id number] : ?1945 ? Requested By: SARBJIT BROOKS S Order Number: [id number] ? Reading : ?? Monroe Howell ? Measurements Intervals ?Papillion ? Rate: ? 51 ? P: ?13 NE: ? 175 ?QRS: ?28 QRSD: ? 86 ? T: ?65 QT: ? 427 ? QTc: ?397 ? Interpretive Statements SINUS BRADYCARDIA POSSIBLE RIGHT VENTRICULAR CONDUCTION DELAY ??[RSR (QR) IN V1/V2] MARKED ST ELEVATION, CONSIDER ANTERIOR INJURY ??[MARKED ST ELEVATION W/O NORMALLY INFLECTED T-WAVE IN V2-V5] ACUTE FL Electronically Signed On 10-23-2023 16:44:36 CDT by Monroe Howell Procedure Note Monroe Howell MD - 10/23/2023 [facility] [address], [place] [address] Test Date: 2023-10-23 Pat Name: ZEE MARTINEZ Department: 60 Room: [facility] 1 Gender: Female Rotary Soil Stabilizer: [id number] : 1945 Requested By: SARBJIT Martinez Order Number: [id number] Reading MD: Monroe Howell Measurements Intervals Papillion Rate: 51 P: 13 NE: 175 QRS: 28 QRSD: 86 T: 65 QT: 427 QTc: 397 Interpretive Statements SINUS BRADYCARDIA POSSIBLE RIGHT VENTRICULAR CONDUCTION DELAY [RSR (QR) IN V1/V2] MARKED ST ELEVATION, CONSIDER ANTERIOR INJURY [MARKED ST ELEVATION W/O NORMALLY INFLECTED T-WAVE IN V2-V5] ACUTE FL Electronically Signed On 10-23-2023 16:44:36 CDT by Monroe Howell Tana Schaefer PA-C ECG ORDERABLES INTERFACE SYSTEM Refer to clinic/hospital department * (ABNORMAL) POC GLUCOSE (10/23/2023 12:07 PM CDT) GLUCOSE POC 129(H) 74 - 99 mg/dL 10/23/2023 12:07 PM CDT [facility] LABORATORY [facility] SPECIMEN SOURCE, GLUCOSE POC Whole Blood 10/23/2023 12:07 PM CDT [facility] Blood, whole 10/23/2023 12:0 7 PM CDT 10/23/2023 5:33 PM CDT Edinson Ferrell MD POINT OF CARE TESTIN G [facility] CLIA# [id number] [address] [place] [address] * POC TEG STANDARD A (10/23/2023 10:30 AM CDT) CITRATED KAOLIN REACTION TIME (CK-R) POC 10/23/2023 1:18 PM CDT [facility] LABORATORY [facility] Comment: Invalid result This is a corrected result. Previous result was 10.4 min on 10/23/2023 at 1209 CDT CITRATED KAOLIN ANGLE (CK-A) POC 10/23/2023 1:18 PM CDT [facility] Comment: Invalid result This is a corrected result. Previous result was 56.6 deg on 10/23/2023 at 1209 CDT CITRATED [place]IN MAXIMUM AMPLITUDE(CK-MA ) POC 10/23/2023 1:18 PM CDT [facility] LABORATORY [facility] Comment: Invalid result This is a corrected result. Previous result was 58 mm on 10/23/2023 at 1209 CDT CITRATED RAPID MAXIMUM AMPLITUDE (EXECUTIVE CREATIVE DIRECTOR-MA) POC 10/23/2023 1:18 PM CDT [facility] Comment: Invalid result This is a corrected result. Previous result was 59 mm on 10/23/2023 at 1209 CDT CITRATED [place]IN HEPARINASE REACTION TIME (CKH-RT) POC 10/23/2023 1:18 PM CDT [facility] Comment: Invalid result This is a corrected result. Previous result was 10.9 min on 10/23/2023 at 1209 CDT CITRATE FUNCTIONAL FIBRINOGEN MAX AMPLITUDE, CFF-MA POC 10/23/2023 1:18 PM CDT [facility] Comment: Invalid result This is a corrected result. Previous result was 18 mm on 10/23/2023 at 1209 CDT CITRATED FUNCTIONAL FIBRINOGEN (CFF-FLEV) POC 10/23/2023 1:18 PM CDT [facility] LABORATORY [facility] Comment: Invalid result This is a corrected result. Previous result was 332 mg/dl on 10/23/2023 at 1209 CDT CITRATED KAOLIN KINETICS (CK-K) POC 10/23/2023 1:18 PM CDT [facility] Comment: Invalid result This is a corrected result. Previous result was 2.7 min on 10/23/2023 at 1209 CDT 10/23/2023 10:3 0 AM CDT 10/23/2023 12:09 PM CDT Edinson Ferrell MD POINT OF CARE TESTIN G [facility]# [id number] [address] [place] [address] * EKG 12-LEAD (10/23/2023 8:23 AM CDT) 10/23/2023 8:23 AM CDT Narrative INTERFACE SYSTEM - 10/23/2023 11:01 AM CDT ? [facility] ? [address] , [place] [address] ? Test Date: ?2023-10-23 Pat Name: ? ZEEYASMANI MARTINEZ ? Department: ?? 60 ?Room: ? 4090 1 Gender: ? Female ? Rotary Soil Stabilizer: ?? [id number] : ?1945 ? Requested By: SARBJIT BROOKS S Order Number: [id number] ? Ashley HENDERSON: ?? Chang Villanueva ? Measurements Intervals ?Papillion ? Rate: ? 64 ? P: ?70 NE: ? 193 ?QRS: ?34 QRSD: ? 75 ? T: ?62 QT: ? 393 ? QTc: ?407 ? Interpretive Statements SINUS RHYTHM WITH SINUS ARRHYTHMIA POSSIBLE RIGHT VENTRICULAR CONDUCTION DELAY ??[RSR (QR) IN V1/V2] ST ELEVATION - EXCLUDE ACUTE FL ??[MARKED ST ELEVATION W/O NORMALLY INFLECTED T-WAVE] Electronically Signed On 10-23-2023 11:01:05 CDT by Chang Villanueva Procedure Note Provider, Historical - 10/23/2023 [facility] [address] [place] [address] Test Date: 2023-10-23 Pat Name: ZEE MARTINEZ Department: 60 Room: 4090 1 Gender: Female Rotary Soil Stabilizer: [id number] : 1945 Requested By: SARBJIT BROOKS S Order Number: [id number] Ashley MD: Chang Villanueva Measurements Intervals Papillion Rate: 64 P: 70 NE: 193 QRS: 34 QRSD: 75 T: 62 QT: 393 QTc: 407 Interpretive Statements SINUS RHYTHM WITH SINUS ARRHYTHMIA POSSIBLE RIGHT VENTRICULAR CONDUCTION DELAY [RSR (QR) IN V1/V2] ST ELEVATION - EXCLUDE ACUTE FL [MARKED ST ELEVATION W/O NORMALLYINFLECTED T-WAVE] Electronically Signed On 10-23-2023 11:01:05 CDT by Chang Villanueva Tana Schaefer PA-C ECG ORDERABLES Performing Organization Address City/[facility]/ZIP Co de Phone Number INTERFACE SYSTEM Refer to clinic/hospital department * (ABNORMAL) POC GLUCOSE (10/23/2023 8:06 AM CDT) GLUCOSE POC 100(H) 74 - 99 mg/dL 10/23/2023 8:06 AM CDT [facility] SPECIMEN SOURCE, GLUCOSE POC Whole Blood 10/23/2023 8:06 AM CDT [facility] Blood, whole 10/23/2023 8:06 AM CDT 10/23/2023 8:41 AM CDT Edinson Ferrell MD POINT OF CARE TESTIN G Performing Organization Address [facility]/ZIP Co de Phone Number [facility] [place] CLIA# [id number] [address] [place] [address] * POC TEG STANDARD A (10/23/2023 7:19 AM CDT) CITRATED KAOLIN REACTION TIME (CK-R) POC 10/23/2023 1:21 PM CDT [facility] Comment: Invalid result This is a corrected result. Previous result was 7.1 min on 10/23/2023 at 0855 CDT CITRATED KAOLIN ANGLE (CK-A) POC 10/23/2023 1:21 PM CDT [facility] Comment: Invalid result This is a corrected result. Previous result was 55.3 deg on 10/23/2023 at 0855 CDT CITRATED KAOLIN MAXIMUM AMPLITUDE(CK-MA ) POC 10/23/2023 1:21 PM CDT [facility] Comment: Invalid result This is a corrected result. Previous result was 60 mm on 10/23/2023 at 0855 CDT CITRATED RAPID MAXIMUM AMPLITUDE (EXECUTIVE CREATIVE DIRECTOR-MA) POC 10/23/2023 1:21 PM CDT [facility] Comment: Invalid result This is a corrected result. Previous result was 64 mm on 10/23/2023 at 0855 CDT CITRATED KAOLIN HEPARINASE REACTION TIME (CKH-RT) POC 10/23/2023 1:21 PM CDT [facility] Comment: Invalid result This is a corrected result. Previous result was 8.2 min on 10/23/2023 at 0855 CDT CITRATE FUNCTIONAL FIBRINOGEN MAX AMPLITUDE, CFF-MA POC 10/23/2023 1:21 PM CDT [facility] LABORATORY [facility] Comment: Invalid result This is a corrected result. Previous result was 21 mm on 10/23/2023 at 0855 CDT CITRATED FUNCTIONAL FIBRINOGEN (CFF-FLEV) POC 10/23/2023 1:21 PM CDT [facility] Comment: Invalid result This is a corrected result. Previous result was 380 mg/dl on 10/23/2023 at 0855 CDT CITRATED KAOLIN KINETICS (CK-K) POC 10/23/2023 1:21 PM CDT [facility] Comment: Invalid result This is a corrected result. Previous result was 3.3 min on 10/23/2023 at 0855 CDT 10/23/2023 7:19 AM CDT 10/23/2023 8:55 AM CDT Edinson Ferrell MD POINT OF CARE TESTIN G [facility]# [id number] [address] [place] [address] * (ABNORMAL) POC GLUCOSE (10/23/2023 7:12 AM CDT) [facility] Signature GLUCOSE POC 123(H) 74 - 99 mg/dL 10/23/2023 7:12 AM CDT [facility] SPECIMEN SOURCE, GLUCOSE POC Whole Blood 10/23/2023 7:12 AM T [facility] Blood, whole 10/23/2023 7:12 AM CDT 10/23/2023 9:04 AM CDT Edinson Ferrell MD POINT OF CARE TESTIN G [facility] LABORATORY [facility]# [id number] [address] [place] [address] * (ABNORMAL) POC GLUCOSE (10/23/2023 6:06 AM CDT) [facility] GLUCOSE POC 128(H) 74 - 99 mg/dL 10/23/2023 6:06 AM CDT [facility] LABORATORY SERVICES - [facility] SPECIMEN SOURCE, GLUCOSE POC Whole Blood 10/23/2023 6:06 AM CDT [facility] LABORATORY SERVICES - [facility] Blood, whole 10/23/2023 6:06 AM CDT 10/23/2023 9:04 AM CDT Edinson Ferrell MD POINT OF CARE TESTIN G [facility] [employer] [facility]# [id number] [address] [place] [address] * XR CHEST PA OR AP 1 VW (10/23/2023 5:29 AM CDT) Anatomical Region Laterality Modality Chest Computed Radiogr aphy 10/23/2023 5:30 AM CDT Impressions 10/23/2023 10:55 AM CDT IMPRESSION: 1. Grossly, no acute abnormalities. 2. Removal of endotracheal tube and nasogastric tube DICTATION LOCATION: Location 4 Narrative 10/23/2023 10:55 AM CDT EXAMINATION: XR CHEST PA OR AP 1 VW DATE: 10/23/2023 5:29 AM HISTORY: Post-Operative. ?? Pre-op testing; Chronic diastolic congestive heart failure ?? COMPARISON: October 22, 2023 ?? FINDINGS: Removal of endotracheal tube and nasogastric tube. Unchanged central venous catheter on the right terminating in the SVC. Unchanged median sternotomy wires. Normal heart size. Catheter tubing superimposes the left apex. Persistent mediastinal drain. No focal consolidation, pleural effusion, or pneumothorax. Left upper lobe linear atelectasis has improved. Procedure Note Rad Cruz MD - 10/23/2023 EXAMINATION: XR CHEST PA OR AP 1 VW DATE: 10/23/2023 5:29 AM HISTORY: Post-Operative. Pre-op testing; Chronic diastolic congestive heart failure COMPARISON: October 22, 2023 FINDINGS: Removal of endotracheal tube and nasogastric tube. Unchanged central venous catheter on the right terminating in the SVC. Unchanged median sternotomy wires. Normal heart size. Catheter tubing superimposes the left apex. Persistent mediastinal drain. No focal consolidation, pleural effusion, or pneumothorax. Left upper lobe linear atelectasis has improved. IMPRESSION: 1. Grossly, no acute abnormalities. 2. Removal of endotracheal tube and nasogastric tube DICTATION LOCATION: Location 4 Tana Schaefer PA-C DIAGNOSTIC IMAG ING ORDERABLES * (ABNORMAL) POC GLUCOSE (10/23/2023 5:23 AM CDT) GLUCOSE POC 129(H) 74 - 99 mg/dL 10/23/2023 5:23 AM CDT [facility] SPECIMEN SOURCE, GLUCOSE POC Whole Blood 10/23/2023 5:23 AM CDT [facility] Blood, whole 10/23/2023 5:23 AM CDT 10/23/2023 9:04 AM CDT Edinson Ferrell MD POINT OF CARE TESTIN G [facility]# [id number] [address] [facility] [place] [address] * (ABNORMAL) POC GLUCOSE (10/23/2023 4:07 AM CDT) GLUCOSE POC 153(H) 74 - 99 mg/dL 10/23/2023 4:07 AM CDT [facility]ORY [facility] SPECIMEN SOURCE, GLUCOSE POC Whole Blood 10/23/2023 4:07 AM CDT [facility] LABORATORY SERVICES - . [facility] Blood, whole 10/23/2023 4:07 AM CDT 10/23/2023 9:04 AM CDT Edinson Ferrell MD POINT OF CARE TESTIN G [facility] LABORATORY SERVICES [facility] CLIA# [id number] [address] [facility] [place] [address] * (ABNORMAL) MANUAL DIFFERENTIAL (10/23/2023 4:07 AM CDT) SEGMENTED NEUTROPHILS 78 % 10/23/2023 6:41 AM T [facility] LABORATORY SERVICES - [facility] LYMPHOCYTES RELATIVE 0(L) 43 - 53 % 10/23/2023 6:41 AM T [facility] LABORATORY SERVICES - . [facility] MONOCYTES RELATIVE 22 % 10/23/2023 6:41 AM T [facility] LABORATORY SERVICES - . [facility] NEUTROPHILS ABSOLUTE COUNT 20.54(H) 1.90 - 7.00 K/uL 10/23/2023 6:41 AM T [facility] LABORATORY SERVICES - . [facility] LYMPHOCYTES ABSOLUTE 0.00(L) 0.70 - 4.50 K/uL 10/23/2023 6:41 AM T [facility] LABORATORY SERVICES - . [facility] MONOCYTES ABSOLUTE 5.66(H) 0.10 - 1.30 K/uL 10/23/2023 6:[address] [facility] - . [facility] TOTAL CELLS COUNTED IN DIFF 111 10/23/2023 6:41 AM T [facility] SERVICES - . [facility] RBC MORPHOLOGY abnormal 10/23/2023 6:41 AM T [facility] SERVICES - . [facility] PLATELET EST. Consistent w Count 10/23/2023 6:41 AM T [employer] SERVICES - . [facility] POIKILOCYTES 1+ /hpf 10/23/2023 6:41 AM T [facility] LABORATORY SERVICES - . [facility] OVALOCYTES 1+ /hpf 10/23/2023 6:41 AM T [facility] LABORATORY SERVICES - [facility] Blood Venipuncture / Unknown 10/23/2023 4:07 AM CDT 10/23/2023 4:10 AM CDT Tana Schaefer PA-C HEMATOLOGY ORDE RABMASON COM [facility] LABORATORY SERVICES [facility] CLIA# [id number] [address] [place] [address] * (ABNORMAL) COMPREHENSIVE METABOLIC PANEL (10/23/2023 4:07 AM CDT) SODIUM 141 136 - 145 mmol/L 10/23/2023 4:44 AM T [facility] LABORATORY SERVICES - [facility] POTASSIUM 3.5 3.5 - 5.0 mmol/L 10/23/2023 4:44 AM [facility] LABORATORY SERVICES - [facility] CHLORIDE 106 98 - 107 mmol/L 10/23/2023 4:44 AM T [facility] LABORATORY SERVICES - [facility] CO2 20(L) 22 - 29 mmol/L 10/23/2023 4:44 AM T [facility] LAB[facility]ATORY SERVICES - [facility] CALCIUM 9.3 8.6 - 10.2 mg/dL 10/23/2023 4:44 AM T [facility] LABORATORY SERVICES - . [facility] BUN 23 8 - 23 mg/dL 10/23/2023 4:44 AM [facility] LABORATORY SERVICES - . [facility] CREATININE 1.04(H) 0.51 - 0.95 mg/dL 10/23/2023 4:44 AM T [facility] LABORATORY SERVICES - . [facility] Comment:The GFR result is no t clinically significant on patients <18 or >70 years of age. GLUCOSE 153(H) 74 - 99 mg/dL 10/23/2023 4:44 AM T [facility] LABORATORY SERVICES - . [facility] TOTAL PROTEIN 6.9 6.7 - 8.6 g/dL 10/23/2023 4:44 AM T [employer] LABORATORY SERVICES - [facility] ALBUMIN 4.0 3.5 - 5.2 g/dL 10/23/2023 4:44 AM [facility] LABORATORY SERVICES - . [facility] BILIRUBIN TOTAL 0.5 0.2 - 1.1 mg/dL 10/23/2023 4:44 AM T [facility] ALKALINE PHOSPHATASE 73 35 - 104 U/L 10/23/2023 4:44 AM [facility] AST 46(H) <33 U/L 10/23/2023 4:44 AM T [facility] ALT 16 <34 U/L 10/23/2023 4:44 AM [facility] GFR 55 mL/min/1.7 3 sq meter 10/23/2023 4:44 AM [facility] Comment:eGFR calculated with 2020 CKD-EPI equation. Vegetarian diet, extremely high or low muscle mass, and may affect results. Cystatin C with Glomerular Filtration Rate is a suitable alternative for these patients. ANION GAP 15 8 - 16 mmol/L 10/23/2023 4:44 AM [facility] Blood Venipuncture / Unknown 10/23/2023 4:07 AM CDT 10/23/2023 4:10 AM CDT [facility] - 10/23/2023 4:44 AM CDT Samples containing indocyanine green cause interferences on Total and/or Direct Bilirubin and must not be measured. Tana Schaefer PA-C CHEMISTRY ORDER [place] [facility]# [id number] [address] [facility] [place] [address] * (ABNORMAL) CBC WITH DIFFERENTIAL (10/23/2023 4:07 AM CDT) WBC 26.2(H) 4.0 - 9.8 K/uL 10/23/2023 4:28 AM T [facility] RBC 3.49(L) 3.90 - 4.90 M/uL 10/23/2023 4:28 AM [facility] HEMOGLOBIN 10.7(L) 11.8 - 14.8 g/dL 10/23/2023 4:28 AM T [facility] LABORATORY SERVICES - [facility] HEMATOCRIT 31.7(L) 35.5 - 44.0 % 10/23/2023 4:28 AM T [facility] LABORATORY SERVICES - [facility] MCV 90.8 82.0 - 99.0 fL 10/23/2023 4:28 AM T [facility] LABORATORY SERVICES - [facility] MCH 30.7 27.2 - 32.6 pg 10/23/2023 4:28 AM T [facility] LABORATORY SERVICES - [facility] MCHC 33.8 31.5 - 35.5 g/dL 10/23/2023 4:28 AM T [facility] LABORATORY SERVICES - [facility] RDW 14.0 11.5 - 14.5 % 10/23/2023 4:28 AM T [facility] LABORATORY SERVICES - [facility] RDW-STDEV 46.8 37.1 - 48.7 fL 10/23/2023 4:28 AM T [facility] LABORATORY SERVICES - [facility] PLATELETS 183 140 - 350 K/uL 10/23/2023 4:28 AM T [facility] LABORATORY SERVICES - [facility] MPV 11.8 9.3 - 12.4 fL 10/23/2023 4:28 AM [facility] LABORATORY SERVICES - [facility] Blood Venipuncture / Unknown 10/23/2023 4:07 AM CDT 10/23/2023 4:10 AM CDT Tana Schaefer PA-C HEMATOLOGY JAMES DIANA [facility] [employer] [facility]# [id number] [address] [facility] [place] [address] * (ABNORMAL) POC GLUCOSE (10/23/2023 2:55 AM CDT) [facility] GLUCOSE POC 152(H) 74 - 99 mg/dL 10/23/2023 2:55 AM CDT [facility] LABORATORY SERVICES - [facility] SPECIMEN SOURCE, GLUCOSE POC Whole Blood 10/23/2023 2:55 AM [facility] LABORATORY [facility] - [facility] Blood, whole 10/23/2023 2:55 AM CDT 10/23/2023 9:04 AM CDT Edinson Ferrell MD POINT OF CARE TESTIN G Performing Organization Address City/[facility]/ZIP Co de Phone Number [facility] LABORATORY [facility] CLIA# [id number] [address] [place] [address] * (ABNORMAL) POC GLUCOSE (10/23/2023 2:00 AM CDT) GLUCOSE POC 166(H) 74 - 99 mg/dL 10/23/2023 2:00 AM CDT [facility] [facility] LABORATORY SERVICES - [facility] SPECIMEN SOURCE, GLUCOSE POC Whole Blood 10/23/2023 2:00 AM CDT [employer] [facility] LABORATORY SERVICES [facility] Blood, whole 10/23/2023 2:00 AM CDT 10/23/2023 9:03 AM CDT Edinson Ferrell MD POINT OF CARE TESTIN G Performing Organization Address [facility]/ZIP Co de Phone Number [facility] LABORATORY [facility] CLIA# [id number] [address] [place] [address] * (ABNORMAL) BLOOD GAS ARTERIAL (10/23/2023 1:55 AM CDT) PH BLOOD POC 7.37 7.35 - 7.45 10/23/2023 1:55 AM CDT [employer] [facility] LABORATORY SERVICES [facility] PCO2 POC 34(L) 35 - 48 mm Hg 10/23/2023 1:55 AM CDT [employer] [facility] LABORATORY SERVICES [facility] PO2 POC 133(H) 83 - 108 mm Hg 10/23/2023 1:55 AM CDT [facility] [facility] LABORATORY SERVICES [facility] HCO3 (CALC) POC 20(L) 22 - 26 mmol/L 10/23/2023 1:55 AM CDT [employer] [facility] LABORATORY SERVICES [facility] HEMOGLOBIN POC 10.6(L) 11.8 - 14.8 g/dL 10/23/2023 1:55 AM CDT [facility] LABORATORY SERVICES [facility] BASE EXCESS POC -5(L) -2 - 3 mmol/L 10/23/2023 1:55 AM [facility] [employer] LABORATORY SERVICES [facility] O2 SATURATION POC 99(H) 94 - 98 % 10/23/2023 1:55 AM [facility] [employer] LABORATORY SERVICES [facility] HEMATOCRIT POC 32(L) 35 - 44 % 10/23/2023 1:55 AM [facility] [employer] LABORATORY SERVICES [facility] Comment:Estimated Value PH TEMP CORRECT 7.37 7.35 - 7.45 10/23/2023 1:55 AM [facility] [employer] LABORATORY SERVICES [facility] PCO2 TEMP CORRECT 34(L) 35 - 48 mm Hg 10/23/2023 1:55 AM [facility] [employer] LABORATORY SERVICES [facility] PO2 TEMP CORRECT 133(H) 83 - 108 mm Hg 10/23/2023 1:55 AM [facility] [employer] LABORATORY SERVICES [facility] SPECIMEN SOURCE, GASES POC Arterial 10/23/2023 1:55 AM [facility] [employer] LABORATORY SERVICES [facility] COMMENT, GASES POC Responsible Clinical Caregiver notified 10/23/2023 1:55 AM [employer] LABORATORY SERVICES [facility] TCO2 (CALC) POC 21 19 - 24 mmol/L 10/23/2023 1:55 AM [facility] [employer] LABORATORY SERVICES [facility] FIO2 30.0 21.0 - 100.0 % 10/23/2023 1:55 AM [facility] [employer] LABORATORY SERVICES [facility] P/F RATIO POC 443 10/23/2023 1:55 AM [facility] LABORATORY SERVICES [facility] PEEP POC 5 10/23/2023 1:55 AM [facility] LABORATORY SERVICES [facility] PS POC 5 10/23/2023 1:55 AM [facility] LABORATORY SERVICES [facility] PATIENT'S TEMPERATURE POC 37.0 degrees 10/23/2023 1:55 AM [facility] LABORATORY SERVICES [facility] PAO2 POC 171 10/23/2023 1:55 AM [facility] LABORATORY SERVICES [facility] ARTERIAL/ALVEO LAR O2 RATIO 0.7800 10/23/2023 1:55 AM [facility] LABORATORY SERVICES [facility] Blood, arterial 10/23/2023 1 :55 AM CDT 10/23/2023 1:56 AM CDT Olga Sandhu DO NDIAYE ORDERABLES [facility]# [id number] [address] [place], [place] [address] * (ABNORMAL) POC GLUCOSE (10/23/2023 1:01 AM CDT) GLUCOSE POC 163(H) 74 - 99 mg/dL 10/23/2023 1:01 AM CDT [facility] LABORATORY SERVICES [facility] SPECIMEN SOURCE, GLUCOSE POC Whole Blood 10/23/2023 1:01 AM CDT [facility] LABORATORY SERVICES [facility] Blood, whole 10/23/2023 1:01 AM CDT 10/23/2023 9:03 AM CDT Edinson Ferrell MD POINT OF CARE TESTIN G Performing Organization Address [facility]/ZIP Co de Phone Number [facility] LABORATORY [facility] CLIN# [id number] [address] [place], [place] [address] * (ABNORMAL) POC GLUCOSE (10/22/2023 11:57 PM CDT) GLUCOSE POC 154(H) 74 - 99 mg/dL 10/22/2023 11:57 PM CDT [facility] LABORATORY SERVICES [facility] SPECIMEN SOURCE, GLUCOSE POC Whole Blood 10/22/2023 11:57 PM CDT [facility] LABORATORY SERVICES [facility] Blood, whole 10/22/2023 11:5 7 PM CDT 10/23/2023 9:03 AM CDT Edinson Ferrell MD POINT OF CARE TESTIN G [facility] LABORATORY [facility] CLIA# [id number] [address] [place], [place] [address] * (ABNORMAL) POC GLUCOSE (10/22/2023 10:55 PM CDT) GLUCOSE POC 146(H) 74 - 99 mg/dL 10/22/2023 10:55 PM CDT [facility] LABORATORY SERVICES - [facility] SPECIMEN SOURCE, GLUCOSE POC Whole Blood 10/22/2023 10:55 PM CDT [facility] LABORATORY SERVICES [facility] Blood, whole 10/22/2023 10:5 5 PM CDT 10/23/2023 9:03 AM CDT Edinson Ferrell MD POINT OF CARE TESTIN G Performing Organization Address City/[facility]/ZIP Co de Phone Number [facility] CLIA# [id number] [address] [place] [address] * (ABNORMAL) POC GLUCOSE (10/22/2023 9:58 PM CDT) GLUCOSE POC 150(H) 74 - 99 mg/dL 10/22/2023 9:58 PM CDT [facility] LABORATORY [facility] SPECIMEN SOURCE, GLUCOSE POC Whole Blood 10/22/2023 9:58 PM CDT [facility] LABOR[facility]ORY [facility] Blood, whole 10/22/2023 9:58 PM CDT 10/23/2023 9:03 AM CDT Edinson Ferrell MD POINT OF CARE TESTIN G [facility] CLIA# [id number] [address] [place] [address] * (ABNORMAL) POC GLUCOSE (10/22/2023 8:53 PM CDT) GLUCOSE POC 141(H) 74 - 99 mg/dL 10/22/2023 8:53 PM CDT [facility] LABORATORY [facility] SPECIMEN SOURCE, GLUCOSE POC Whole Blood 10/22/2023 8:53 PM CDT [facility] LABORATORY [facility] Blood, whole 10/22/2023 8:53 PM CDT 10/23/2023 9:03 AM CDT Edinson Ferrell MD POINT OF CARE TESTIN G Performing Organization Address [facility]/State/ZIP Co de Phone Number [facility] LABORATORY [facility]# [id number] [address] [place] [address] * (ABNORMAL) POC GLUCOSE (10/22/2023 7:58 PM CDT) GLUCOSE POC 131(H) 74 - 99 mg/dL 10/22/2023 7:58 PM CDT [facility] LABORATORY SERVICES - [facility] SPECIMEN SOURCE, GLUCOSE POC Whole Blood 10/22/2023 7:58 PM CDT [facility] LABORATORY [facility] Blood, whole 10/22/2023 7:58 PM CDT 10/23/2023 9:03 AM CDT Edinson Ferrell MD POINT OF CARE TESTIN G Performing Organization Address [facility]/ZIP Co de Phone Number [facility] [employer] [facility]# [id number] [address] [place] [address] * XR CHEST PA OR AP 1 VW (10/22/2023 7:10 PM CDT) Anatomical Region Laterality Modality Chest Computed Radiogr aphy 10/22/2023 7:39 PM CDT Impressions 10/23/2023 1:01 AM CDT IMPRESSION: 1. 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 2. Left upper lobe subsegmental atelectasis or infiltrate. DICTATION LOCATION: Location 4 Narrative 10/23/2023 1:01 AM CDT CHEST SINGLE VIEW DATE: 10/22/2023 7:10 PM HISTORY: Respiratory failure in a 78-year-old female. COMPARISON: X-ray 10/20/2023 FINDINGS: ?? SUPPORT DEVICES: ET tube terminates at the clavicular heads. Gastric tube courses through the esophagus. The tip is not definitely seen. Right central venous catheter terminates in the superior vena cava. CHEST: Heart size is within normal limits. The pulmonary vasculature is slightly prominent. Aorta is atherosclerotic. There are median sternotomy wires from CABG. There are linear opacities in the left upper lobe. No large pleural effusion. No pneumothorax. There is a small suture line in the right hilum. No acute osseous abnormality. Procedure Note Carl Dunn MD - 10/23/2023 CHEST SINGLE VIEW DATE: 10/22/2023 7:10 PM HISTORY: Respiratory failure in a 78-year-old female. COMPARISON: X-ray 10/20/2023 FINDINGS: SUPPORT DEVICES: ET tube terminates at the clavicular heads. Gastric tube courses through the esophagus. The tip is not definitely seen. Right central venous catheter terminates in the superior vena cava. CHEST: Heart size is within normal limits. The pulmonary vasculature is slightly prominent. Aorta is atherosclerotic. There are median sternotomy wires from CABG. There are linear opacities in the left upper lobe. No large pleural effusion. No pneumothorax. There is a small suture line in the right hilum. No acute osseous abnormality. IMPRESSION: 1. 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 2. Left upper lobe subsegmental atelectasis or infiltrate. DICTATION LOCATION: Location 4 Tana Schaefer PA-C DIAGNOSTIC IMAG ING ORDERABLES * (ABNORMAL) POC GLUCOSE (10/22/2023 7:06 PM CDT) GLUCOSE POC 152(H) 74 - 99 mg/dL 10/22/2023 7:06 PM CDT [facility] LABORATORY SERVICES [facility] SPECIMEN SOURCE, GLUCOSE POC Whole Blood 10/22/2023 7:06 PM CDT [facility] LABORATORY [facility] Blood, whole 10/22/2023 7:06 PM CDT 10/23/2023 9:03 AM CDT Edinson Ferrell MD POINT OF CARE TESTIN G [facility] LABORATORY SERVICES [facility] CLIA# [id number] [address] [facility] [address] * (ABNORMAL) POC GLUCOSE (10/22/2023 6:18 PM CDT) GLUCOSE POC 168(H) 74 - 99 mg/dL 10/22/2023 6:18 PM CDT [facility] LABORATORY SERVICES - [facility] SPECIMEN SOURCE, GLUCOSE POC Whole Blood 10/22/2023 6:18 PM CDT [facility] LABORATORY SERVICES - [facility] Blood, whole 10/22/2023 6:18 PM CDT 10/23/2023 9:03 AM CDT Edinson Ferrell MD POINT OF CARE TESTIN G [facility] LABORATORY SERVICES [facility]# [id number] [address] [place] [address] * (ABNORMAL) BLOOD GAS ARTERIAL (10/22/2023 6:17 PM CDT) [facility] PH BLOOD POC 7.45 7.35 - 7.45 10/22/2023 6:17 PM CDT [facility] LABORATORY SERVICES - [facility] PCO2 POC 31(L) 35 - 48 mm Hg 10/22/2023 6:17 PM T [facility] LABORATORY SERVICES [facility] PO2 POC 285(H) 83 - 108 mm Hg 10/22/2023 6:17 PM T [facility] HCO3 (CALC) POC 22 22 - 26 mmol/L 10/22/2023 6:17 PM T [facility] - [facility] HEMOGLOBIN POC 10.5(L) 11.8 - 14.8 g/dL 10/22/2023 6:17 PM CDT [facility] - [facility] BASE EXCESS POC -2 -2 - 3 mmol/L 10/22/2023 6:17 PM T [facility] - [facility] O2 SATURATION POC 99(H) 94 - 98 % 10/22/2023 6:17 PM CDT [facility] - [facility] POTASSIUM POC 4.0 3.5 - 4.9 mmol/L 10/22/2023 6:17 PM [facility] HEMATOCRIT POC 32(L) 35 - 44 % 10/22/2023 6:17 PM [facility] [employer] LABORATORY SERVICES [facility] Comment:Estimated Value PH TEMP CORRECT 7.45 7.35 - 7.45 10/22/2023 6:17 PM [facility] [employer] LABORATORY SERVICES [facility] PCO2 TEMP CORRECT 31(L) 35 - 48 mm Hg 10/22/2023 6:17 PM [facility] [employer] LABORATORY SERVICES [facility] PO2 TEMP CORRECT 285(H) 83 - 108 mm Hg 10/22/2023 6:17 PM [facility] [employer] LABORATORY SERVICES [facility] SPECIMEN SOURCE, GASES POC Arterial 10/22/2023 6:17 PM [facility] [employer] LABORATORY SERVICES [facility] COMMENT, GASES POC Responsible Clinical Caregiver notified 10/22/2023 6:17 PM [facility] [employer] LABORATORY SERVICES [facility] TCO2 (CALC) POC 23 19 - 24 mmol/L 10/22/2023 6:17 PM [facility] [employer] LABORATORY SERVICES [facility] FIO2 60.0 21.0 - 100.0 % 10/22/2023 6:17 PM [facility] [employer] LABORATORY SERVICES [facility] P/F RATIO POC 475 10/22/2023 6:17 PM [facility] [employer] LABORATORY SERVICES [facility] PEEP POC 5 10/22/2023 6:17 PM T [employer] LABORATORY SERVICES [facility] SET RATE POC 14 10/22/2023 6:17 PM [facility] [employer] LABORATORY SERVICES [facility] TIDAL VOLUME POC 500.00 10/22/2023 6:17 PM [facility] [employer] LABORATORY SERVICES [facility] PATIENT'S TEMPERATURE POC 37.0 degrees 10/22/2023 6:17 PM [facility] [employer] LABORATORY SERVICES [facility] PAO2 POC 389 10/22/2023 6:17 PM [facility] [employer] LABORATORY SERVICES [facility] ARTERIAL/ALVEO LAR O2 RATIO 0.7300 10/22/2023 6:17 PM [facility] [employer] LABORATORY SERVICES [facility] Blood, arterial 10/22/2023 6 :17 PM CDT 10/22/2023 6:19 PM CDT Tana NDIAYE ORDERABLES [facility] LABORATORY SERVICES - [facility] CLIA# [id number] [address] [place] [address] * (ABNORMAL) COMPREHENSIVE METABOLIC PANEL (10/22/2023 6:14 PM CDT) SODIUM 136 136 - 145 mmol/L 10/22/2023 7:13 PM CDT [facility] [employer] LABORATORY SERVICES - . [place] POTASSIUM 4.0 3.5 - 5.0 mmol/L 10/22/2023 7:13 PM CDT [facility] [employer] LABORATORY SERVICES - . [facility] CHLORIDE 103 98 - 107 mmol/L 10/22/2023 7:13 PM CDT [facility] [employer] LABORATORY SERVICES - . [place] CO2 20(L) 22 - 29 mmol/L 10/22/2023 7:13 PM CDT [facility] [employer] LABORATORY SERVICES - . [facility] CALCIUM 9.9 8.6 - 10.2 mg/dL 10/22/2023 7:13 PM CDT [facility] [employer] LAB[facility]ATORY [facility] - . [place] BUN 17 8 - 23 mg/dL 10/22/2023 7:13 PM CDT [facility] LABORATORY SERVICES - . [facility] CREATININE 1.01(H) 0.51 - 0.95 mg/dL 10/22/2023 7:13 PM CDT [facility] LABORATORY SERVICES - [facility] Comment:The GFR result is no t clinically significant on patients <18 or >70 years of age. GLUCOSE 162(H) 74 - 99 mg/dL 10/22/2023 7:13 PM CDT [facility] [employer] LAB[facility]ORY [facility] - . [place] TOTAL PROTEIN 6.6(L) 6.7 - 8.6 g/dL 10/22/2023 7:13 PM CDT [facility] [employer] LABORATORY SERVICES - . [facility] ALBUMIN 3.8 3.5 - 5.2 g/dL 10/22/2023 7:13 PM CDT [employer] LABORATORY SERVICES - . [facility] BILIRUBIN TOTAL 0.4 0.2 - 1.1 mg/dL 10/22/2023 7:13 PM CDT [facility] [employer] LABORATORY SERVICES - . [facility] ALKALINE PHOSPHATASE 70 35 - 104 U/L 10/22/2023 7:13 PM CDT [employer] LABORATORY SERVICES - [facility] AST 21 <33 U/L 10/22/2023 7:13 PM CDT [facility] ALT 10 <34 U/L 10/22/2023 7:13 PM CDT [facility] GFR 57 mL/min/1.7 3 sq meter 10/22/2023 7:13 PM CDT [facility] Comment:eGFR calculated with 2020 CKD-EPI equation. Vegetarian diet, extremely high or low muscle mass, and may affect results. Cystatin C with Glomerular Filtration Rate is a suitable alternative for these patients. ANION GAP 13 8 - 16 mmol/L 10/22/2023 7:13 PM T [facility] Blood Arterial / Unknown 6:14 PM CDT 10/22/2023 6:25 PM CDT [facility] - 10/22/2023 7:13 PM CDT Samples containing indocyanine green cause interferences on Total and/or Direct Bilirubin and must not be measured. Tana cShaefer PA-C CHEMISTRY ORDER [place] [id number] [address] [place] [address] * (ABNORMAL) PROTIME-INR (10/22/2023 6:14 PM CDT) PROTIME 16.5(H) 12.7 - 15.1 Seconds 10/22/2023 7:04 PM CDT [facility] INR 1.3(H) 0.9 - 1.1 10/22/2023 7:04 PM CDT [facility] Blood Arterial / Unknown 6:14 PM CDT 10/22/2023 6:25 PM CDT Narrative [facility] - 10/22/2023 7:04 PM CDT INR Therapeutic Range: Adult: ?? 2.0 - 3.0 for pulmonary embolism or prophylaxis against venous ?thrombosis or systemic embolization. 2.0 - 3.0 for patients with tissue heart valves. 2.5 - 3.5 for patients with mechanical heart valves or post FL. Pediatric ??(12 years and under): 1.5 - 3.0 Although the target range in children is not well established, ?INR values of 1.5 - 3.0 are recommended for most patients. ?Higher values have been used in children with prosthetic ?cardiac valves and hereditary clotting disorders. [place] (<3 days) therapeutic ranges have not been established. Tana Schaefer PA-C HEMATOLOGY JAMES DIANA Performing Organization Address City/State/[facility] Co de Phone Number [facility]# [id number] [address] [facility] [place] [address] * (ABNORMAL) PTT (10/22/2023 6:14 PM CDT) [facility] PTT 38.5(H) 24.4 - 36.4 seconds 10/22/2023 7:04 PM CDT [facility] LABORATORY [facility] Comment: PTT Therapeutic Range: Heparin Level ? PTT (seconds) <0.10 units/mL ? <53 0.10 - 0.30 units/mL ? 53 - 67 0.30 - 0.70 units/mL* ?67 - 95* 0.70 - 1.00 units/mL ? 95 - 116 *corresponds to therapeutic range for unfractionated heparin Blood Arterial / Unknown 6:14 PM CDT 10/22/2023 6:25 PM CDT Tana Schaefer PA-C HEMATOLOGY JAMES DIANA [facility] LABORATORY SERVICES - [facility] CLIN# [id number] [address] [place] [address] * (ABNORMAL) CBC WITH DIFFERENTIAL (10/22/2023 6:14 PM CDT) WBC 17.3(H) 4.0 - 9.8 K/uL 10/22/2023 6:50 PM CDT [facility] [employer] LABORATORY SERVICES - [facility] RBC 3.41(L) 3.90 - 4.90 M/uL 10/22/2023 6:50 PM CDT [facility] LABORATORY SERVICES - [facility] HEMOGLOBIN 10.1(L) 11.8 - 14.8 g/dL 10/22/2023 6:50 PM CDT [employer] LABORATORY SERVICES - [facility] HEMATOCRIT 31.0(L) 35.5 - 44.0 % 10/22/2023 6:50 PM CDT [facility] LABORATORY SERVICES - [facility] MCV 90.9 82.0 - 99.0 fL 10/22/2023 6:50 PM CDT [facility] LABORATORY SERVICES - [facility] MCH 29.6 27.2 - 32.6 pg 10/22/2023 6:50 PM CDT [employer] LABORATORY SERVICES - [facility] MCHC 32.6 31.5 - 35.5 g/dL 10/22/2023 6:50 PM CDT [employer] LABORATORY SERVICES - [facility] RDW 13.9 11.5 - 14.5 % 10/22/2023 6:50 PM CDT [employer] LABORATORY SERVICES - [facility] RDW-STDEV 45.7 37.1 - 48.7 fL 10/22/2023 6:50 PM CDT [facility] LABORATORY SERVICES - [facility] PLATELETS 160 140 - 350 K/uL 10/22/2023 6:50 PM CDT [employer] LABORATORY SERVICES - [facility] MPV 11.8 9.3 - 12.4 fL 10/22/2023 6:50 PM CDT [employer] LABORATORY SERVICES - [facility] NEUTROPHILS 78 % 10/22/2023 6:50 PM CDT [facility] LABORATORY SERVICES - [facility] LYMPHOCYTES 5 % 10/22/2023 6:50 PM CDT [facility] LABORATORY SERVICES - . [facility] MONOCYTES 12 % 10/22/2023 6:50 PM CDT [facility] LABORATORY SERVICES - . [facility] EOSINOPHILS 1 % 10/22/2023 6:50 PM CDT [facility] LABORATORY SERVICES - . [facility] BASOPHILS 0 % 10/22/2023 6:50 PM CDT [facility] LABORATORY SERVICES - [facility] IMMATURE GRANULOCYTES 5 % 10/22/2023 6:50 PM CDT [facility] LABORATORY SERVICES - [facility] Comment:IG (Immature Granulo cyte) count includes Metamyelocytes, Myelocytes, and Promyelocytes NEUTROPHIL ABSOLUTE 13.42(H) 1.90 - 7.00 K/uL 10/22/2023 6:50 PM CDT [facility] LABORATORY SERVICES - [facility] LYMPHOCYTE ABSOLUTE 0.83 0.70 - 4.50 K/uL 10/22/2023 6:50 PM CDT [facility] LABORATORY [facility] - . [facility] MONOCYTE ABSOLUTE 2.04(H) 0.10 - 1.30 K/uL 10/22/2023 6:50 PM CDT [facility] LABORATORY SERVICES - [facility] EOSINOPHIL ABSOLUTE 0.11 0.00 - 0.70 K/uL 10/22/2023 6:50 PM CDT [facility] LABORATORY SERVICES - . [facility] BASOPHILS ABSOLUTE 0.04 0.00 - 0.20 K/uL 10/22/2023 6:50 PM CDT [facility] LABORATORY SERVICES - [facility] IMMATURE GRANULOCYTES ABSOLUTE 0.83(H) 0.00 - 0.03 K/uL 10/22/2023 6:50 PM CDT [facility] LABORATORY [facility] - [facility] Blood Arterial / Unknown 6:14 PM CDT 10/22/2023 6:25 PM CDT Tana Schaefer PA-C HEMATOLOGY JAMES DIANA [facility] CLIA# [id number] [address] [place] [address] * MAGNESIUM LEVEL (10/22/2023 6:14 PM CDT) [facility] MAGNESIUM 1.9 1.6 - 2.4 mg/dL 10/22/2023 7:13 PM CDT [facility] LABORATORY [facility] Blood Arterial / Unknown 6:14 PM CDT 10/22/2023 6:25 PM CDT Tana Schaefer PA-C CHEMISTRY ORDER [place] Performing Organization Address [facility]/ZIP Co de Phone Number [facility]# [id number] [address] [place] [address] * POC LACTIC ACID (10/22/2023 5:10 PM CDT) [facility] LACTIC ACID POC 1.2 <=2.0 mmol/L 10/22/2023 5:10 PM CDT [facility] LABORATORY [facility] SPECIMEN SOURCE, GASES POC Arterial 10/22/2023 5:10 PM CDT [facility] COMMENT, GASES POC Responsible Clinical Caregiver notified 10/22/2023 5:10 PM CDT [facility] Blood 10/22/2023 5:10 PM CDT 10/22/2023 5:12 PM CDT Olga Sandhu DO POINT OF CARE TESTIN G Performing Organization Address [facility] Co de Phone Number [facility]# [id number] [address] [place] [address] * (ABNORMAL) BLOOD GAS,(INCL. H+H, LYTES, GLUC) (10/22/2023 5:10 PM CDT) [facility] PH BLOOD POC 7.43 7.35 - 7.45 10/22/2023 5:10 PM CDT [facility] PCO2 POC 33(L) 35 - 48 mm Hg 10/22/2023 5:10 PM CDT [facility] LABORATORY [facility] PO2 POC 531(H) 83 - 108 mm Hg 10/22/2023 5:10 PM [facility] LABORATORY SERVICES [facility] TCO2 (CALC) POC 23 19 - 24 mmol/L 10/22/2023 5:10 PM [facility] LABORATORY SERVICES [facility] HCO3 (CALC) POC 22 22 - 26 mmol/L 10/22/2023 5:10 PM [facility] [employer] LABORATORY SERVICES [facility] O2 SATURATION POC 99(H) 94 - 98 % 10/22/2023 5:10 PM [facility] [employer] LABORATORY SERVICES [facility] BASE EXCESS POC -2 -2 - 3 mmol/L 10/22/2023 5:10 PM [facility] [employer] LABORATORY SERVICES [facility] HEMOGLOBIN POC 8.1(L) 11.8 - 14.8 g/dL 10/22/2023 5:10 PM [facility] LABORATORY [facility] HEMATOCRIT POC 24(L) 35 - 44 % 10/22/2023 5:10 PM [facility] [employer] LABORATORY SERVICES [facility] Comment:Estimated Value GLUCOSE POC 164(H) 74 - 99 mg/dL 10/22/2023 5:10 PM [facility] LABORATORY [facility] SODIUM POC 134(L) 135 - 145 mmol/L 10/22/2023 5:10 PM [facility] [employer] LABORATORY [facility] POTASSIUM POC 4.3 3.5 - 4.9 mmol/L 10/22/2023 5:10 PM [facility] LABORATORY [facility] CALCIUM IONIZED POC 5.7(H) 4.7 - 5.1 mg/dL 10/22/2023 5:10 PM [facility] LABORATORY [facility] PH TEMP CORRECT 7.43 7.35 - 7.45 10/22/2023 5:10 PM [facility] [employer] LABORATORY [facility] PCO2 TEMP CORRECT 33(L) 35 - 48 mm Hg 10/22/2023 5:10 PM [facility] LABORATORY SERVICES [facility] PO2 TEMP CORRECT 531(H) 83 - 108 mm Hg 10/22/2023 5:10 PM [facility] [employer] LABORATORY SERVICES [facility] SPECIMEN SOURCE, GASES POC Arterial 10/22/2023 5:10 PM [facility] [employer] LABORATORY SERVICES [facility] PATIENT'S TEMPERATURE POC 37.0 degrees 10/22/2023 5:10 PM CDT [facility] LABORATORY [facility] COMMENT, GASES POC Responsible Clinical Caregiver notified 10/22/2023 5:10 PM CDT [facility] LABORATORY [facility] Blood, arterial 10/22/2023 5 :10 PM CDT 10/22/2023 5:12 PM CDT Olga Sandhu DO ABG ORDERABLES Performing Organization Address [facility] Co de Phone Number [facility]# [id number] [address] [place] [address] * POC LACTIC ACID (10/22/2023 4:29 PM CDT) LACTIC ACID POC 1.4 <=2.0 mmol/L 10/22/2023 4:29 PM CDT [facility] LABORATORY [facility] SPECIMEN SOURCE, GASES POC Arterial 10/22/2023 4:29 PM CDT [facility] LABORATORY [facility] COMMENT, GASES POC Responsible Clinical Caregiver notified 10/22/2023 4:29 PM CDT [facility] LABORATORY [facility] Blood 10/22/2023 4:29 PM CDT 10/22/2023 4:30 PM CDT Olga Sandhu DO POINT OF CARE TESTIN G Performing Organization Address [facility] Co de Phone Number [facility]# [id number] [address] [place] [address] * (ABNORMAL) BLOOD GAS,(INCL. H+H, LYTES, GLUC) (10/22/2023 4:29 PM CDT) PH BLOOD POC 7.42 7.35 - 7.45 10/22/2023 4:29 PM CDT [facility] LABORATORY [facility] PCO2 POC 34(L) 35 - 48 mm Hg 10/22/2023 4:29 PM CDT [facility] LABORATORY [facility] PO2 POC 538(H) 83 - 108 mm Hg 10/22/2023 4:29 PM [facility] LABORATORY SERVICES [facility] TCO2 (CALC) POC 23 19 - 24 mmol/L 10/22/2023 4:29 PM [facility] LABORATORY SERVICES [facility] HCO3 (CALC) POC 22 22 - 26 mmol/L 10/22/2023 4:29 PM [facility] LABORATORY SERVICES [facility] O2 SATURATION POC 99(H) 94 - 98 % 10/22/2023 4:29 PM [facility] LABORATORY SERVICES [facility] BASE EXCESS POC -2 -2 - 3 mmol/L 10/22/2023 4:29 PM [facility] LABORATORY SERVICES [facility] HEMOGLOBIN POC 8.2(L) 11.8 - 14.8 g/dL 10/22/2023 4:29 PM [facility] LABORATORY [facility] HEMATOCRIT POC 25(L) 35 - 44 % 10/22/2023 4:29 PM [facility] LABORATORY SERVICES [facility] Comment:Estimated Value GLUCOSE POC 134(H) 74 - 99 mg/dL 10/22/2023 4:29 PM [facility] LABORATORY [facility] SODIUM POC 135 135 - 145 mmol/L 10/22/2023 4:29 PM [facility] [employer] LABORATORY [facility] POTASSIUM POC 4.2 3.5 - 4.9 mmol/L 10/22/2023 4:29 PM [facility] LABORATORY [facility] CALCIUM IONIZED POC 5.9(H) 4.7 - 5.1 mg/dL 10/22/2023 4:29 PM [facility] LABORATORY [facility] PH TEMP CORRECT 7.42 7.35 - 7.45 10/22/2023 4:29 PM [facility] LABORATORY [facility] PCO2 TEMP CORRECT 34(L) 35 - 48 mm Hg 10/22/2023 4:29 PM [facility] LABORATORY SERVICES [facility] PO2 TEMP CORRECT 538(H) 83 - 108 mm Hg 10/22/2023 4:29 PM [facility] LABORATORY [facility] SPECIMEN SOURCE, GASES POC Arterial 10/22/2023 4:29 PM [facility] LABORATORY [facility] PATIENT'S TEMPERATURE POC 37.0 degrees 10/22/2023 4:29 PM CDT [facility] LABORATORY [facility] COMMENT, GASES POC Responsible Clinical Caregiver notified 10/22/2023 4:29 PM CDT [facility] LABORATORY [facility] Blood, arterial 10/22/2023 4 :29 PM CDT 10/22/2023 4:30 PM CDT Olga Sandhu DO ABG ORDERABLES [facility] CLIA# [id number] [address] [place], [place] [address] * TRANSFUSE RED BLOOD CELLS (10/22/2023 3:38 PM CDT) Shin Rosenbaum DO BLOOD TRANSF USION ORDERABLES * POC LACTIC ACID (10/22/2023 3:35 PM CDT) LACTIC ACID POC 1.1 <=2.0 mmol/L 10/22/2023 3:35 PM CDT [facility] LABORATORY [facility] SPECIMEN SOURCE, GASES POC Arterial 10/22/2023 3:35 PM CDT [facility] LABORATORY [facility] COMMENT, GASES POC Responsible Clinical Caregiver notified 10/22/2023 3:35 PM CDT [facility] LABORATORY [facility] Blood 10/22/2023 3:35 PM CDT 10/22/2023 3:37 PM CDT Olga Sandhu DO POINT OF CARE TESTIN G [facility] CLIA# [id number] [address] [place] [address] * (ABNORMAL) BLOOD GAS,(INCL. H+H, LYTES, GLUC) (10/22/2023 3:35 PM CDT) PH BLOOD POC 7.41 7.35 - 7.45 10/22/2023 3:35 PM CDT [facility] LABORATORY [facility] PCO2 POC 37 35 - 48 mm Hg 10/22/2023 3:35 PM [facility] [employer] LABORATORY SERVICES [facility] PO2 POC 566(H) 83 - 108 mm Hg 10/22/2023 3:35 PM [facility] [employer] LABORATORY SERVICES [facility] TCO2 (CALC) POC 25(H) 19 - 24 mmol/L 10/22/2023 3:35 PM [facility] [employer] LABORATORY SERVICES [facility] HCO3 (CALC) POC 24 22 - 26 mmol/L 10/22/2023 3:35 PM [facility] [employer] LABORATORY SERVICES [facility] O2 SATURATION POC 99(H) 94 - 98 % 10/22/2023 3:35 PM [facility] [employer] LABORATORY SERVICES [facility] BASE EXCESS POC -1 -2 - 3 mmol/L 10/22/2023 3:35 PM [facility] [employer] LABORATORY SERVICES [facility] HEMOGLOBIN POC 7.4(L) 11.8 - 14.8 g/dL 10/22/2023 3:35 PM [facility] [employer] LABORATORY SERVICES [facility] HEMATOCRIT POC 22(L) 35 - 44 % 10/22/2023 3:35 PM [facility] [employer] LABORATORY SERVICES [facility] Comment:Estimated Value GLUCOSE POC 101(H) 74 - 99 mg/dL 10/22/2023 3:35 PM [facility] [employer] LABORATORY SERVICES [facility] SODIUM POC 134(L) 135 - 145 mmol/L 10/22/2023 3:35 PM [facility] [employer] LABORATORY SERVICES [facility] POTASSIUM POC 3.9 3.5 - 4.9 mmol/L 10/22/2023 3:35 PM [facility] [employer] LABORATORY SERVICES [facility] CALCIUM IONIZED POC 4.4(L) 4.7 - 5.1 mg/dL 10/22/2023 3:35 PM [facility] [employer] LABORATORY SERVICES [facility] PH TEMP CORRECT 7.41 7.35 - 7.45 10/22/2023 3:35 PM [facility] [employer] LABORATORY SERVICES [facility] PCO2 TEMP CORRECT 37 35 - 48 mm Hg 10/22/2023 3:35 PM [facility] [employer] LABORATORY SERVICES [facility] PO2 TEMP CORRECT 566(H) 83 - 108 mm Hg 10/22/2023 3:35 PM [facility] [employer] LABORATORY SERVICES [facility] SPECIMEN SOURCE, GASES POC Arterial 10/22/2023 3:35 PM CDT [facility] LABORATORY SERVICES - [facility] PATIENT'S TEMPERATURE POC 37.0 degrees 10/22/2023 3:35 PM CDT [facility] LABORATORY SERVICES - [facility] COMMENT, GASES POC Responsible Clinical Caregiver notified 10/22/2023 3:35 PM CDT [facility] LABORATORY SERVICES - [facility] Blood, arterial 10/22/2023 3 :35 PM CDT 10/22/2023 3:37 PM CDT Olga Sandhu DO ABG ORDERABLES [facility] CLIA# [id number] [address] [id number] * POC LACTIC ACID (10/22/2023 2:43 PM CDT) LACTIC ACID POC 1.3 <=2.0 mmol/L 10/22/2023 2:43 PM CDT [facility] LABORATORY SERVICES - [facility] SPECIMEN SOURCE, GASES POC Arterial 10/22/2023 2:43 PM CDT [facility] LABORATORY SERVICES [facility] COMMENT, GASES POC Responsible Clinical Caregiver notified 10/22/2023 2:43 PM CDT [facility] LABORATORY [facility] Blood 10/22/2023 2:43 PM CDT 10/22/2023 2:44 PM CDT Olga Sandhu DO POINT OF CARE TESTIN G [facility] CLIA# [id number] [address] [place] [address] * (ABNORMAL) BLOOD GAS,(INCL. H+H, LYTES, GLUC) (10/22/2023 2:43 PM CDT) PH BLOOD POC 7.48(H) 7.35 - 7.45 10/22/2023 2:43 PM CDT [facility] PCO2 POC 34(L) 35 - 48 mm Hg 10/22/2023 2:43 PM [facility] PO2 POC 527(H) 83 - 108 mm Hg 10/22/2023 2:43 PM [facility] TCO2 (CALC) POC 26(H) 19 - 24 mmol/L 10/22/2023 2:43 PM [facility] HCO3 (CALC) POC 25 22 - 26 mmol/L 10/22/2023 2:43 PM [facility] O2 SATURATION POC 99(H) 94 - 98 % 10/22/2023 2:43 PM [facility] BASE EXCESS POC 2 -2 - 3 mmol/L 10/22/2023 2:43 PM [facility] HEMOGLOBIN POC 9.2(L) 11.8 - 14.8 g/dL 10/22/2023 2:43 PM [facility] HEMATOCRIT POC 28(L) 35 - 44 % 10/22/2023 2:43 PM [facility] Comment:Estimated Value GLUCOSE POC 102(H) 74 - 99 mg/dL 10/22/2023 2:43 PM [facility] SODIUM POC 136 135 - 145 mmol/L 10/22/2023 2:43 PM [facility] POTASSIUM POC 4.5 3.5 - 4.9 mmol/L 10/22/2023 2:43 PM [facility] CALCIUM IONIZED POC 5.0 4.7 - 5.1 mg/dL 10/22/2023 2:43 PM [facility] PH TEMP CORRECT 7.48(H) 7.35 - 7.45 10/22/2023 2:43 PM [facility] PCO2 TEMP CORRECT 34(L) 35 - 48 mm Hg 10/22/2023 2:43 PM [facility] PO2 TEMP CORRECT 527(H) 83 - 108 mm Hg 10/22/2023 2:43 PM [facility] SPECIMEN SOURCE, GASES POC Arterial 10/22/2023 2:43 PM CDT [facility] PATIENT'S TEMPERATURE POC 37.0 degrees 10/22/2023 2:43 PM CDT [facility] COMMENT, GASES POC Responsible Clinical Caregiver notified 10/22/2023 2:43 PM CDT [facility] Blood, arterial 10/22/2023 2 :43 PM CDT 10/22/2023 2:44 PM CDT [place] Edson DO NDIAYE ORDERABLES [facility] SERVICES [facility]# [id number] [facility] [place] [place] [id number] * (ABNORMAL) POC TEG STANDARD A (10/22/2023 1:40 PM CDT) [facility] CITRATED [place] REACTION TIME (CK-R) POC 7.8 4.6 - 9.1 min 10/22/2023 1:40 PM T [facility] - [facility] CITRATED [place] ANGLE (CK-A) POC 80.4(H) 63.0 - 78.0 deg 10/22/2023 1:40 PM T [facility] - [facility] CITRATED [place] MAXIMUM AMPLITUDE(CK-MA ) POC 72(H) 52 - 69 mm 10/22/2023 1:40 PM T [facility] CITRATED RAPID MAXIMUM AMPLITUDE (EXECUTIVE CREATIVE DIRECTOR-MA) POC 73(H) 52 - 70 mm 10/22/2023 1:40 PM T [facility] CITRATED [place] HEPARINASE REACTION TIME (CKH-RT) POC 6.8 4.3 - 8.3 min 10/22/2023 1:40 PM T [facility] [facility] - . [facility] CITRATE FUNCTIONAL FIBRINOGEN MAX AMPLITUDE, CFF-MA POC 47(H) 15 - 32 mm 10/22/2023 1:40 PM T [facility] SERVICES - . [facility] CITRATED FUNCTIONAL FIBRINOGEN (CFF-FLEV) POC 849(H) 278 - 581 mg/dl 10/22/2023 1:40 PM CDT [facility] SERVICES - [facility] CITRATED KAOLIN KINETICS (CK-K) POC 0.7(L) 0.8 - 2.1 min 10/22/2023 1:40 PM CDT [facility] - [facility] [place] 10/22/2023 1:40 PM CDT 10/22/2023 3:07 PM CDT Olga Sandhu DO POINT OF CARE TESTIN G [facility] SERVICES - [facility] CLIA# [id number] [address] [place] [address] * US GUIDE NEEDLE PLACEMENT (10/22/2023 12:58 PM CDT) Narrative 10/22/2023 12:58 PM CDT Order information only. ??Exam was auto-finalized. ?? Edinson Ferrell MD US ORDERABLES * PREPARE RED BLOOD CELLS (10/22/2023 8:41 AM CDT) Pathologist [facility] COMPONENT TYPE [id number] [facility] -- [facility] COMPONENT IDENTIFICATION [id number] [facility] -- [facility] UNIT ABO O [facility] -- .[facility] UNIT RH POS [facility] -- [place] CROSSMATCH Compatible [facility] -- [facility] COMPONENT STATUS Transfused [facility] COMPONENT EXPIRATION DATE/TIME [id number] [facility] -- [place] COMPONENT CODING SYSTEM 5100 [facility] -- .[facility] VOLUME, BLOOD PRODUCT 350 [facility] 10/22/2023 8:41 AM CDT Edinson Ferrell MD LAB TRANSFUSION ORDClaudia DIANA [facility] CLIA# [id number] [address] [place] [address] * PREPARE RED BLOOD CELLS (10/22/2023 8:41 AM CDT) COMPONENT TYPE [id number] [facility] COMPONENT IDENTIFICATION [id number] [facility] UNIT ABO O [facility] UN[facility] RH POS [facility] CROSSMATCH Compatible [facility] COMPONENT STATUS Returned [facility] -- [facility] COMPONENT EXPIRATION DATE/TIME [facility] COMPONENT CODING SYSTEM [address] [facility] VOLUME, BLOOD PRODUCT [address] [facility] 10/22/2023 8:41 AM CDT Edinson Ferrell MD LAB TRANSFUSION JAMES DIANA [facility] CLIA# [id number] [address] [place] [address] * PREPARE RED BLOOD CELLS (10/22/2023 8:41 AM CDT) COMPONENT TYPE [id number] [facility] COMPONENT IDENTIFICATION [id number] [facility] UNIT ABO O [facility] UN[facility] RH POS [facility] CROSSMATCH Compatible [facility] COMPONENT STATUS Returned [facility] COMPONENT EXPIRATION DATE/TIME [facility] COMPONENT CODING SYSTEM [address] VOLUME, BLOOD PRODUCT [address] [facility] 10/22/2023 8:41 AM CDT Edinson Ferrell MD LAB TRANSFUSION JAMES DIANA [employer] [facility]# [id number] [facility] [place] [address] * PREPARE RED BLOOD CELLS (10/22/2023 8:41 AM CDT) COMPONENT TYPE [id number] [facility] [employer] [facility]AT[facility] SERVICES -- [facility] COMPONENT IDENTIFICATION [id number] [facility] UNIT ABO O [facility] UN[facility] RH POS [facility] CROSSMATCH Compatible [facility] COMPONENT STATUS Returned [facility] COMPONENT EXPIRATION DATE/TIME [facility] SERVICES -- [facility] COMPONENT CODING SYSTEM 5100 [facility] [employer] LAB[facility] SERVICES -- [facility] VOLUME, BLOOD PRODUCT 350 [facility] 10/22/2023 8:41 AM CDT Edinson Ferrell MD LAB TRANSFUSION ORDE [facility] [employer] [facility]# [id number] [facility] [place] [address] * PREPARE RED BLOOD CELLS (10/22/2023 8:41 AM CDT) COMPONENT TYPE [id number] [facility] [employer] [facility] SERVICES -- [facility] COMPONENT IDENTIFICATION [id number] [facility] UNIT ABO O [facility] UNIT RH POS [facility] CROSSMATCH Compatible [facility] COMPONENT STATUS Returned [facility] COMPONENT EXPIRATION DATE/TIME [facility] [employer] [facility] SERVICES -- [facility] COMPONENT CODING SYSTEM 5100 [facility] [facility] SERVICES -- [facility] VOLUME, BLOOD PRODUCT 350 [facility] 10/22/2023 8:41 AM CDT Edinson Ferrell MD LAB TRANSFUSION JAMES DIANA Performing Organization Address [facility]/ZIP Co de Phone Number [facility] -- [facility]# [id number] [address] [place] [address] * PREPARE RED BLOOD CELLS (10/22/2023 8:41 AM CDT) COMPONENT TYPE [id number] [facility] SERVICES -- [facility] COMPONENT IDENTIFICATION [id number] [facility] -- [facility] UN[place] ABO O [facility] SERVICES -- .[facility] UNIT RH POS [facility] -- .[facility] CROSSMATCH Compatible [facility] -- [place] COMPONENT STATUS Returned [facility] COMPONENT EXPIRATION DATE/TIME [id number] [facility] SERVICES -- .[facility] COMPONENT CODING SYSTEM 5100 [facility] SERVICES -- .[facility] VOLUME, BLOOD PRODUCT 350 [facility] SERVICES -- .[facility] Other, specify 10/22/2023 8: 41 AM CDT Edinson Ferrell MD LAB TRANSFUSION TAFTClaudia OLIVEIRAMASON Performing Organization Address [facility] Co de Phone Number [facility] SERVICES -- [facility]# [id number] [address] [place] [address] * CVOR TRANSESOPHAGEAL STUDY (10/22/2023 8:40 AM CDT) Narrative 10/22/2023 8:40 AM CDT Order Auto Finalized. Please see associated Operative Report/Progress Note/Procedure Note from the same date. Edinson Ferrell MD ECHO ORDERABLES * (ABNORMAL) POC GLUCOSE (10/22/2023 6:24 AM CDT) GLUCOSE POC 103(H) 74 - 99 mg/dL 10/22/2023 6:24 AM CDT [facility] SERVICES - [facility] SPECIMEN SOURCE, GLUCOSE POC Whole Blood 10/22/2023 6:24 AM CDT [employer] LABORATORY SERVICES - [facility] Blood, whole 10/22/2023 6:24 AM CDT 10/22/2023 6:51 AM CDT Olga Sandhu POINT OF CARE TESTIN G [facility] [employer] LABORATORY SERVICES - [facility] CLIA# [id number] [address] [place] [address] * (ABNORMAL) CBC WITHOUT DIFFERENTIAL (10/22/2023 1:01 AM CDT) WBC 11.1(H) 4.0 - 9.8 K/uL 10/22/2023 2:39 AM CDT [employer] LABORATORY SERVICES - [facility] RBC 3.24(L) 3.90 - 4.90 M/uL 10/22/2023 2:39 AM CDT [employer] LABORATORY SERVICES - . [facility] HEMOGLOBIN 9.7(L) 11.8 - 14.8 g/dL 10/22/2023 2:39 AM CDT [employer] LABORATORY SERVICES - . [facility] HEMATOCRIT 29.8(L) 35.5 - 44.0 % 10/22/2023 2:39 AM CDT [employer] LABORATORY SERVICES - . [facility] MCV 92.0 82.0 - 99.0 fL 10/22/2023 2:39 AM CDT [employer] LABORATORY SERVICES - [facility] MCH 29.9 27.2 - 32.6 pg 10/22/2023 2:39 AM CDT [employer] LABORATORY SERVICES - . [facility] MCHC 32.6 31.5 - 35.5 g/dL 10/22/2023 2:39 AM CDT [employer] LABORATORY SERVICES - . [facility] PLATELETS 238 140 - 350 K/uL 10/22/2023 2:39 AM CDT [employer] LABORATORY SERVICES - . [facility] MPV 12.4 9.3 - 12.4 fL 10/22/2023 2:39 AM CDT [employer] LABORATORY SERVICES - . [facility] RDW 13.7 11.5 - 14.5 % 10/22/2023 2:39 AM CDT [employer] LABORATORY SERVICES - [facility] RDW-STDEV 46.5 37.1 - 48.7 fL 10/22/2023 2:39 AM [facility] LABORATORY [facility] Blood Venipuncture / Unknown 10/22/2023 1:01 AM CDT 10/22/2023 2:13 AM CDT Sarbjit Brooks MD HEMATOLOGY ORDERABL ES [facility] CLIA# [id number] [address] [place] [address] * (ABNORMAL) BASIC METABOLIC PANEL (10/22/2023 1:01 AM CDT) SODIUM 136 136 - 145 mmol/L 10/22/2023 3:05 AM [facility] LABORATORY [facility] POTASSIUM 3.4(L) 3.5 - 5.0 mmol/L 10/22/2023 3:05 AM [facility] CHLORIDE 99 98 - 107 mmol/L 10/22/2023 3:05 AM [facility] CO2 26 22 - 29 mmol/L 10/22/2023 3:05 AM [facility] CALCIUM 9.3 8.6 - 10.2 mg/dL 10/22/2023 3:05 AM [facility] LABORATORY [facility] BUN 20 8 - 23 mg/dL 10/22/2023 3:05 AM [facility] CREATININE 1.32(H) 0.51 - 0.95 mg/dL 10/22/2023 3:05 AM [facility] Comment:The GFR result is no t clinically significant on patients <18 or >70 years of age. GLUCOSE 123(H) 74 - 99 mg/dL 10/22/2023 3:05 AM [facility] GFR 41 mL/min/1.7 3 sq meter 10/22/2023 3:05 AM [facility] LABORATORY [facility] Comment:eGFR calculated with 2020 CKD-EPI equation. Vegetarian diet, extremely high or low muscle mass, and may affect results. Cystatin C with Glomerular Filtration Rate is a suitable alternative for these patients. ANION GAP 11 8 - 16 mmol/L 10/22/2023 3:05 AM CDT [facility] Blood Venipuncture / Unknown 10/22/2023 1:01 AM CDT 10/22/2023 2:12 AM CDT Olga Sandhu DO CHEMISTRY ORDERABLES Performing Organization Address [facility] Co de Phone Number [facility]# [id number] [address] [place] [address] * (ABNORMAL) PTT (10/21/2023 8:44 PM CDT) PTT 69.4(H) 24.4 - 36.4 seconds 10/21/2023 9:17 PM CDT [facility] Comment: PTT Therapeutic Range: Heparin Level ? PTT (seconds) <0.10 units/mL ? <53 0.10 - 0.30 units/mL ? 53 - 67 0.30 - 0.70 units/mL* ?67 - 95* 0.70 - 1.00 units/mL ? 95 - 116 *corresponds to therapeutic range for unfractionated heparin Blood Venipuncture / Unknown 10/21/2023 8:44 PM CDT 10/21/2023 8:51 PM CDT Monroe Howell MD HEMATOLOGY ORDERABLE S Performing Organization Address [facility] Co de Phone Number [facility]# [id number] [address] [place] [address] * URINALYSIS WITH REFLEX MICROSCOPIC (10/21/2023 8:04 PM CDT) COLOR UA Yellow Pale to Dark Yellow 10/21/2023 9:35 PM CDT [facility] SERVICES - [facility] CLARITY UA Clear Clear 10/21/2023 9:35 PM CDT [facility] SERVICES - [facility] SPECIFIC GRAVITY UA 1.016 1.003 - 1.035 10/21/2023 9:35 PM CDT [facility] SERVICES - [facility] PH UA 6.0 5.0 - 8.0 10/21/2023 9:35 PM CDT [facility] SERVICES - [facility] LEUKOCYTE ESTERASE UA Negative Negative 10/21/2023 9:35 PM CDT [facility] SERVICES - [facility] NITRITE UA Negative Negative 10/21/2023 9:35 PM CDT [facility] SERVICES - [facility] PROTEIN UA Negative Negative 10/21/2023 9:35 PM CDT [facility]ORY [facility] - [facility] GLUCOSE UA Negative Negative 10/21/2023 9:35 PM CDT [facility]ATORY SERVICES - [facility] KETONES UA Negative Negative 10/21/2023 9:35 PM CDT [facility] SERVICES - [facility] UROBILINOGEN UA Normal <2.0 mg/dL 9:35 PM CDT [facility]ATORY SERVICES - [facility] BILIRUBIN UA Negative Negative 10/21/2023 9:35 PM CDT [facility] SERVICES - [facility] BLOOD UA Negative Negative 10/21/2023 9:35 PM CDT [facility] SERVICES - [facility] Urine URINE SPECIMEN OBTAINED BY CLEAN CATCH PROCEDURE / Unknown Collection / Unknown 10/21/2023 8:04 PM CDT 10/21/2023 9:07 PM CDT Celia Orozco [employer] DRAFTING OFFICER URINE ORDERABLES [facility] LABORATORY SERVICES [facility] CLIA# [id number] [address] [place] [address] * (ABNORMAL) PTT (10/21/2023 3:05 PM CDT) [facility] PTT 66.1(H) 24.4 - 36.4 seconds 10/21/2023 3:40 PM CDT [facility] SERVICES - [facility] Comment: PTT Therapeutic Range: Heparin Level ? PTT (seconds) <0.10 units/mL ? <53 0.10 - 0.30 units/mL ? 53 - 67 0.30 - 0.70 units/mL* ?67 - 95* 0.70 - 1.00 units/mL ? 95 - 116 *corresponds to therapeutic range for unfractionated heparin Blood Venipuncture / Unknown 10/21/2023 3:05 PM CDT 10/21/2023 3:09 PM CDT Monroe Howell MD HEMATOLOGY ORDERABLE S [facility] LABORATORY SERVICES [facility]# [id number] [address] [place] [address] * PREPARE RED BLOOD CELLS (10/21/2023 10:22 AM CDT) [facility] COMPONENT TYPE [id number] [facility] COMPONENT IDENTIFICATION [id number] [facility]OR[facility] SERVICES -- [facility] UNIT ABO O [facility] SERVICES -- [facility] UNIT RH POS [facility] SERVICES -- [facility] CROSSMATCH Compatible [facility] -- [facility] COMPONENT STATUS Returned [facility] LAB[facility]ATORY SERVICES -- [facility] COMPONENT EXPIRATION DATE/TIME [id number] [facility] -- [facility] COMPONENT CODING SYSTEM 5100 [facility]ORY SERVICES -- [place] VOLUME, BLOOD PRODUCT 350 [facility] LABORATORY SERVICES -- [facility] 10/21/2023 10:2 2 AM CDT Celia Brockirismusa [facility] LAB TRANSFUSION JAMES DIANA Performing Organization Address City/[facility]/ZIP Co de Phone Number [facility] [id number] [address] [place] [address] * PREPARE RED BLOOD CELLS (10/21/2023 10:22 AM CDT) Pathologist [facility] COMPONENT TYPE [id number] [facility] SERVICES -- [facility] COMPONENT IDENTIFICATION [id number] [facility]ORATORY SERVICES -- [facility] UNIT ABO O [facility] -- [facility] UNIT RH POS [facility] CROSSMATCH Compatible [facility] COMPONENT STATUS Returned [facility] LABORATORY SERVICES -- [facility] COMPONENT EXPIRATION DATE/TIME [id number] [facility] -- [facility] COMPONENT CODING SYSTEM 5100 [facility] SERVICES -- [facility] VOLUME, BLOOD PRODUCT 350 [facility] -- [facility] Other, specify 10/21/2023 10 :22 AM CDT Celiadiamante Brockandreea [employer] OFFICER LAB TRANSFUSION JAMES DIANA Performing Organization Address [facility] Co de Phone Number [facility]# [id number] [address] [place] [address] * (ABNORMAL) PTT (10/21/2023 6:46 AM CDT) PTT 100.7(H) 24.4 - 36.4 seconds 10/21/2023 7:30 AM CDT [facility]ORATORY SERVICES - [facility] Comment: PTT Therapeutic Range: Heparin Level ? PTT (seconds) <0.10 units/mL ? <53 0.10 - 0.30 units/mL ? 53 - 67 0.30 - 0.70 units/mL* ?67 - 95* 0.70 - 1.00 units/mL ? 95 - 116 *corresponds to therapeutic range for unfractionated heparin Blood Venipuncture / Unknown 10/21/2023 6:46 AM CDT 10/21/2023 6:59 AM CDT Olga Sandhu DO HEMATOLOGY ORDERABLE S [facility] LABORATORY SERVICES [facility] CLIA# [id number] [address] [facility] [place] [address] * (ABNORMAL) CBC WITHOUT DIFFERENTIAL (10/21/2023 6:46 AM CDT) WBC 8.9 4.0 - 9.8 K/uL 10/21/2023 7:18 AM CDT [facility] LABORATORY SERVICES - [facility] RBC 3.36(L) 3.90 - 4.90 M/uL 10/21/2023 7:18 AM CDT [facility] LABORATORY SERVICES - [facility] HEMOGLOBIN 9.9(L) 11.8 - 14.8 g/dL 10/21/2023 7:18 AM CDT [facility] LABORATORY SERVICES - [facility] HEMATOCRIT 31.1(L) 35.5 - 44.0 % 10/21/2023 7:18 AM CDT [facility] LABORATORY SERVICES - [facility] MCV 92.6 82.0 - 99.0 fL 10/21/2023 7:18 AM CDT [facility] LABORATORY SERVICES - [facility] MCH 29.5 27.2 - 32.6 pg 10/21/2023 7:18 AM CDT [facility] LABORATORY SERVICES - [facility] MCHC 31.8 31.5 - 35.5 g/dL 10/21/2023 7:18 AM CDT [facility] LABORATORY SERVICES - [facility] PLATELETS 231 140 - 350 K/uL 10/21/2023 7:18 AM CDT [facility] LABORATORY SERVICES - [facility] MPV 11.7 9.3 - 12.4 fL 10/21/2023 7:18 AM CDT [facility] LABORATORY SERVICES - [facility] RDW 13.7 11.5 - 14.5 % 10/21/2023 7:18 AM CDT [facility] LABORATORY SERVICES - [facility] RDW-STDEV 46.5 37.1 - 48.7 fL 10/21/2023 7:18 AM CDT [facility]ATORY SERVICES - [facility] Blood Venipuncture / Unknown 10/21/2023 6:46 AM CDT 10/21/2023 6:59 AM CDT Sarbjit Brooks MD HEMATOLOGY ORDERABL ES [facility]# [id number] [address] [facility] [place] [address] * (ABNORMAL) BASIC METABOLIC PANEL (10/21/2023 6:46 AM CDT) SODIUM 136 136 - 145 mmol/L 10/21/2023 8:03 AM [facility] LABORATORY SERVICES - [facility] POTASSIUM 3.6 3.5 - 5.0 mmol/L 10/21/2023 8:03 AM [facility] LABORATORY SERVICES - [facility] CHLORIDE 99 98 - 107 mmol/L 10/21/2023 8:03 AM T [facility] LABORATORY SERVICES - . [facility] CO2 24 22 - 29 mmol/L 10/21/2023 8:03 AM T [facility] LABORATORY SERVICES - . [facility] CALCIUM 9.2 8.6 - 10.2 mg/dL 10/21/2023 8:03 AM T [facility] LABORATORY SERVICES - . [place] BUN 15 8 - 23 mg/dL 10/21/2023 8:03 AM [facility] LABORATORY SERVICES - . [facility] CREATININE 0.94 0.51 - 0.95 mg/dL 10/21/2023 8:03 AM T [facility] LABORATORY SERVICES - . [place] Comment:The GFR result is no t clinically significant on patients <18 or >70 years of age. GLUCOSE 107(H) 74 - 99 mg/dL 10/21/2023 8:03 AM CDT [facility] GFR >60 mL/min/1.7 3 sq meter 10/21/2023 8:03 AM CDT [facility] Comment:eGFR calculated with 2020 CKD-EPI equation. Vegetarian diet, extremely high or low muscle mass, and may affect results. Cystatin C with Glomerular Filtration Rate is a suitable alternative for these patients. ANION GAP 13 8 - 16 mmol/L 10/21/2023 8:03 AM T [facility] Blood Venipuncture / Unknown 10/21/2023 6:46 AM CDT 10/21/2023 6:59 AM CDT Olga Sandhu DO CHEMISTRY ORDERABLES [facility] CLIA# [id number] [address] [facility] [place] [address] * (ABNORMAL) PTT (10/20/2023 10:05 PM CDT) PTT 64.7(H) 24.4 - 36.4 seconds 10/20/2023 10:48 PM CDT [facility] Comment: PTT Therapeutic Range: Heparin Level ? PTT (seconds) <0.10 units/mL ? <53 0.10 - 0.30 units/mL ? 53 - 67 0.30 - 0.70 units/mL* ?67 - 95* 0.70 - 1.00 units/mL ? 95 - 116 *corresponds to therapeutic range for unfractionated heparin Blood Venipuncture / Unknown 10/20/2023 10:05 PM CDT 10/20/2023 10:33 PM CDT Olga Sandhu DO HEMATOLOGY ORDERABLE S Performing Organization Address [facility] Co de Phone Number [facility]# [id number] [address] [place] [address] * (ABNORMAL) PTT (10/20/2023 3:49 PM CDT) PTT 77.8(H) 24.4 - 36.4 seconds 10/20/2023 4:54 PM CDT [facility] [place] [facility] Comment: PTT Therapeutic Range: Heparin Level ? PTT (seconds) <0.10 units/mL ? <53 0.10 - 0.30 units/mL ? 53 - 67 0.30 - 0.70 units/mL* ?67 - 95* 0.70 - 1.00 units/mL ? 95 - 116 *corresponds to therapeutic range for unfractionated heparin Blood Venipuncture / Unknown 10/20/2023 3:49 PM CDT 10/20/2023 4:37 PM CDT Olga Sandhu HEMATOLOGY ORDERABLE S Performing Organization Address [facility]/ZIP Co de Phone Number [facility] [place] [facility]# [id number] [address] [place] [address] * URINALYSIS WITH REFLEX MICROSCOPIC (10/20/2023 7:49 AM CDT) COLOR UA Pale Yellow Pale to Dark Yellow 10/20/2023 8:20 AM CDT [facility] CLARITY UA Clear Clear 10/20/2023 8:20 AM CDT [facility] - [facility] SPECIFIC GRAVITY UA 1.011 1.003 - 1.035 10/20/2023 8:20 AM T [facility] PH UA 6.0 5.0 - 8.0 10/20/2023 8:20 AM CDT [facility] LEUKOCYTE ESTERASE UA Negative Negative 10/20/2023 8:20 AM T [facility] NITRITE UA Negative Negative 10/20/2023 8:20 AM T [facility] PROTEIN UA Negative Negative 10/20/2023 8:20 AM T [facility] GLUCOSE UA Negative Negative 10/20/2023 8:20 AM T [facility] KETONES UA Negative Negative 10/20/2023 8:20 AM T [facility] UROBILINOGEN UA Normal <2.0 mg/dL 8:20 AM T [facility] BILIRUBIN UA Negative Negative 10/20/2023 8:20 AM T [facility] BLOOD UA Negative Negative 10/20/2023 8:20 AM T [facility] Urine URINE SPECIMEN OBTAINED BY CLEAN CATCH PROCEDURE / Unknown Collection / Unknown 10/20/2023 7:49 AM CDT 10/20/2023 8:09 AM CDT Tana Schaefer PA-C URINE ORDERABLE S [facility] LABORATORY SERVICES - [facility] CLIA# [id number] [address] [facility] [address] [place] [address] * XR CHEST PA AND LATERAL 2 VW (10/20/2023 7:38 AM CDT) Anatomical Region Laterality Modality Chest Computed Radiogr aphy 10/20/2023 7:38 AM CDT Impressions 10/20/2023 3:01 PM CDT IMPRESSION: Stable chest radiograph. DICTATION LOCATION: Location [address] [place] [address] ?? Narrative 10/20/2023 3:01 PM CDT PA AND LATERAL VIEWS OF THE CHEST ?? DATE: 10/20/2023 7:38 AM HISTORY: Postoperative. COMPARISON: 06/30/2021. FINDINGS: ?? Volume loss on the right, with elevation and slight tenting of the right hemidiaphragm redemonstrated. There is stable blunting of the right costophrenic angle which may represent a small effusion versus pleural thickening. There is no focal consolidation or pneumothorax. The cardiomediastinal silhouette is within normal limits. Procedure Note Melany Garcia MD - 10/20/2023 PA AND LATERAL VIEWS OF THE CHEST DATE: 10/20/2023 7:38 AM HISTORY: Postoperative. COMPARISON: 06/30/2021. FINDINGS: Volume loss on the right, with elevation and slight tenting of the right hemidiaphragm redemonstrated. There is stable blunting of the right costophrenic angle which may represent a small effusion versus pleural thickening. There is no focal consolidation or pneumothorax. The cardiomediastinal silhouette is within normal limits. IMPRESSION: Stable chest radiograph. DICTATION LOCATION: Location [address] [place] [address] Tana Schaefer PA-C DIAGNOSTIC IMAG ING ORDERABLES * (ABNORMAL) PTT (10/20/2023 7:07 AM CDT) [facility] Signature PTT 86.1(H) 24.4 - 36.4 seconds 10/20/2023 7:54 AM CDT [facility] Comment: PTT Therapeutic Range: Heparin Level ? PTT (seconds) <0.10 units/mL ? <53 0.10 - 0.30 units/mL ? 53 - 67 0.30 - 0.70 units/mL* ?67 - 95* 0.70 - 1.00 units/mL ? 95 - 116 *corresponds to therapeutic range for unfractionated heparin Blood Venipuncture / Unknown 10/20/2023 7:07 AM CDT 10/20/2023 7:15 AM CDT Olga Sandhu DO HEMATOLOGY ORDERABLE S [facility]ORY SERVICES - [facility] CLIA# [id number] [address] [facility] [place] [address] * (ABNORMAL) CBC WITHOUT DIFFERENTIAL (10/20/2023 1:05 AM CDT) WBC 9.2 4.0 - 9.8 K/uL 10/20/2023 1:56 AM CDT [facility] LABORATORY SERVICES - [facility] RBC 3.15(L) 3.90 - 4.90 M/uL 10/20/2023 1:56 AM CDT [facility] LABORATORY SERVICES - . [facility] HEMOGLOBIN 9.5(L) 11.8 - 14.8 g/dL 10/20/2023 1:56 AM CDT [facility] LABORATORY SERVICES - . [place] HEMATOCRIT 28.8(L) 35.5 - 44.0 % 10/20/2023 1:56 AM CDT [facility] LABORATORY SERVICES - . [facility] MCV 91.4 82.0 - 99.0 fL 10/20/2023 1:56 AM CDT [facility] LABORATORY SERVICES - . [facility] MCH 30.2 27.2 - 32.6 pg 10/20/2023 1:56 AM CDT [facility] LABORATORY SERVICES - . [facility] MCHC 33.0 31.5 - 35.5 g/dL 10/20/2023 1:56 AM CDT [facility] LABORATORY SERVICES - . [facility] PLATELETS 221 140 - 350 K/uL 10/20/2023 1:56 AM CDT [facility] LABORATORY SERVICES - . [facility] MPV 11.9 9.3 - 12.4 fL 10/20/2023 1:56 AM CDT [facility] LABORATORY SERVICES - . [facility] RDW 13.9 11.5 - 14.5 % 10/20/2023 1:56 AM CDT [facility] RDW-STDEV 46.5 37.1 - 48.7 fL 10/20/2023 1:56 AM CDT [facility] Blood Venipuncture / Unknown 10/20/2023 1:05 AM CDT 10/20/2023 1:34 AM CDT Sarbjit Brooks MD HEMATOLOGY ORDERABL ES Performing Organization Address [facility] Co de Phone Number [facility] CLIA# [id number] [address] [place] [address] * (ABNORMAL) PTT (10/20/2023 1:05 AM CDT) PTT 68.0(H) 24.4 - 36.4 seconds 10/20/2023 1:56 AM CDT [facility] Comment: PTT Therapeutic Range: Heparin Level ? PTT (seconds) <0.10 units/mL ? <53 0.10 - 0.30 units/mL ? 53 - 67 0.30 - 0.70 units/mL* ?67 - 95* 0.70 - 1.00 units/mL ? 95 - 116 *corresponds to therapeutic range for unfractionated heparin Blood Venipuncture / Unknown 10/20/2023 1:05 AM CDT 10/20/2023 1:34 AM CDT Olga Sandhu DO HEMATOLOGY ORDERABLE S Performing Organization Address [facility]/ZIP Co de Phone Number [facility] CLIA# [id number] [address] [facility] [address] [place] [address] * (ABNORMAL) BASIC METABOLIC PANEL (10/20/2023 1:05 AM CDT) SODIUM 136 136 - 145 mmol/L 10/20/2023 2:18 AM T [facility] LAB[facility]ATORY SERVICES - [facility] POTASSIUM 3.8 3.5 - 5.0 mmol/L 10/20/2023 2:18 AM T [facility] LABORATORY SERVICES - . [facility] CHLORIDE 100 98 - 107 mmol/L 10/20/2023 2:18 AM T [facility] LABORATORY SERVICES - [facility] CO2 27 22 - 29 mmol/L 10/20/2023 2:18 AM T [facility] LABORATORY SERVICES - . [facility] CALCIUM 9.5 8.6 - 10.2 mg/dL 10/20/2023 2:18 AM T [facility] LABORATORY SERVICES - . [facility] BUN 20 8 - 23 mg/dL 10/20/2023 2:18 AM T [facility] LABORATORY SERVICES [facility]. [facility] CREATININE 0.87 0.51 - 0.95 mg/dL 10/20/2023 2:18 AM T [facility] LABORATORY SERVICES [facility] Comment:The GFR result is no t clinically significant on patients <18 or >70 years of age. GLUCOSE 104(H) 74 - 99 mg/dL 10/20/2023 2:18 AM T [facility] LABORATORY SERVICES [facility] GFR >60 mL/min/1.7 3 sq meter 10/20/2023 2:18 AM [facility] LABORATORY SERVICES [facility] Comment:eGFR calculated with 2020 CKD-EPI equation. Vegetarian diet, extremely high or low muscle mass, and may affect results. Cystatin C with Glomerular Filtration Rate is a suitable alternative for these patients. ANION GAP 9 8 - 16 mmol/L 10/20/2023 2:18 AM T [facility] LABORATORY SERVICES [facility] Blood Venipuncture / Unknown 10/20/2023 1:05 AM CDT 10/20/2023 1:33 AM CDT Olga Sandhu DO CHEMISTRY ORDERABLES [facility] LAB[facility]ATORY SERVICES - [facility] CLIA# [id number] [address] [place] [address] * TYPE AND SCREEN (10/20/2023 1:05 AM CDT) ABO GROUP O 10/20/2023 3:24 AM CDT [facility] LABORATORY SERVICES -- [facility] RH (D) TYPE Positive 10/20/2023 3:24 AM CDT [facility] LABORATORY SERVICES -- [facility] ANTIBODY SCREEN Negative 10/20/2023 3:24 AM CDT [facility] LABORATORY SERVICES -- [facility] Blood Venipuncture / Unknown 10/20/2023 1:05 AM CDT 10/20/2023 1:33 AM CDT Tana Schaefer PA-C BLOOD BANK ORDE ADALGISA Performing Organization Address [facility] Co de Phone Number [facility] LAB[facility]ATORY SERVICES -- [facility] CLIA# [id number] [address] [place] [address] * HEMOGLOBIN A1C (10/20/2023 1:05 AM CDT) HEMOGLOBIN A1C 5.6 <5.7 % 10/20/2023 2:05 AM CDT [facility] LABORATORY SERVICES - [facility] EST. AVG GLUCOSE, A1C 114 mg/dL 10/20/2023 2:05 AM CDT [facility] LABORATORY SERVICES - [facility] Blood Venipuncture / Unknown 10/20/2023 1:05 AM CDT 10/20/2023 1:34 AM CDT Narrative [facility] - [facility] - 10/20/2023 2:05 AM CDT HGB A1C INTERPRETATION NORMAL: ? <5.7% PRE-DIABETES: 5.7 - 6.4% DIABETES: ? 6.5% OR GREATER Tana Schaefer PA-C CHEMISTRY ORDER [place] [facility] LABORATORY [facility]# [id number] [address] [place] [address] * (ABNORMAL) PTT (10/19/2023 5:39 PM CDT) PTT 37.5(H) 24.4 - 36.4 seconds 10/19/2023 6:14 PM CDT [facility] Comment: PTT Therapeutic Range: Heparin Level ? PTT (seconds) <0.10 units/mL ? <53 0.10 - 0.30 units/mL ? 53 - 67 0.30 - 0.70 units/mL* ?67 - 95* 0.70 - 1.00 units/mL ? 95 - 116 *corresponds to therapeutic range for unfractionated heparin Blood Venipuncture / Unknown 10/19/2023 5:39 PM CDT 10/19/2023 5:47 PM CDT Edinson Ferrell MD HEMATOLOGY ORDERABLE S Performing Organization Address City/State/[facility] Co de Phone Number [facility]# [id number] [address] [place] [address] * EKG 12-LEAD (10/19/2023 2:35 PM CDT) 10/19/2023 2:35 PM CDT Narrative INTERFACE SYSTEM - 10/19/2023 2:51 PM CDT ? [facility] ? [address], [place] [address] ? Test Date: ?2023-10-19 Pat Name: ? ZEE MARTINEZ ? Department: ?? 62 ?Room: ? G023 1 Gender: ? Female ? Rotary Soil Stabilizer: ? : ?1945 ? Requested By: SARBJIT BROOKS S Order Number: [id number] ? Reading MD: ?? Raghu Joaquin ? Measurements Intervals ?Papillion ? Rate: ? 67 ? P: ?97 NE: ? 202 ?QRS: ?33 QRSD: ? 87 ? T: ?43 QT: ? 327 ? QTc: ?347 ? Interpretive Statements SINUS RHYTHM SEPTAL MYOCARDIAL INFARCTION , PROBABLY OLD Electronically Signed On 10-19-2023 14:51:50 CDT by Raghu Joaquin Procedure Note Provider, Historical - 10/19/2023 [facility] [address] [facility], [place] [address] Test Date: 2023-10-19 Pat Name: ZEE MARTINEZ Department: 62 Room: [facility] Gender: Female Rotary Soil Stabilizer: : 1945 Requested By: SARBJIT Martinez Order Number: [id number] Reading MD: Raghu Joaquin Measurements Intervals Papillion Rate: 67 P: 97 NE: 202 QRS: 33 QRSD: 87 T: 43 QT: 327 QTc: 347 Interpretive Statements SINUS RHYTHM SEPTAL MYOCARDIAL INFARCTION , PROBABLY OLD Electronically Signed On 10-19-2023 14:51:50 CDT by Raghu Joaquin Shruthi Thomas NP ECG ORDERABLES INTERFACE SYSTEM Refer to clinic/hospital department * LEFT HEART CATH (10/19/2023 11:34 AM CDT) 10/19/2023 10:3 9 AM CDT Narrative [facility]3] HEART AND VASCULAR - 10/19/2023 11:40 AM CDT Impression: 1. 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 ??Normal LV filling pressure 3. ??No significant aortic valve gradient Plan: 1. 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 2. ??Medical therapy for CAD, CTS consult and admission for CABG Procedure Details CARDIAC CATHETERIZATION FINAL REPORT Date of Procedure: 10/19/2023 [employer] Supervisor: Sarbjit Brooks MD Access: right radial artery Procedure(s): 1. Selective coronary angiography 2. Conscious sedation monitoring 3. Left heart catheterization Indication: Dyspnea Abnormal stress test Brief Clinical history: Zee Martinez is a 78 y.o. female with a history of progressive dyspnea and high risk abnormal stress test who presents for cardiac catheterization. Procedural Details: After obtaining written informed consent, the patient was draped and prepped in the usual sterile manner. Conscious sedation was administered. 1. Access: Local anesthetic was given and access was obtained in the right radial artery using a micropuncture technique and a 6F Terumo sheath was placed without difficulty. 3000u of IV heparin was administered. 2. Diagnostic: A 5F JR 4 diagostic and 5F EBU 3 guide were used to perform selective right and left coronary angiography, respectively. A 5F JR 4 diagnostic catheter was used to perform left heart catheterization. All catheters were introduced and removed over a .035 J wire. 3. Hemostasis: The arterial sheath was removed and a hemoband placed over the arteriotomy site and filled with air to maintain patent hemostasis. [place] Findings: 1. Hemodynamics A. Opening arterial pressure: 145/69 B. LVEDP: 5mmHg C. Aortic valve: no significant gradient 2. Coronary anatomy A. Left Main artery: The left main artery bifurcates into the left anterior descending artery and left circumflex artery. The left main artery has 90% ostial stenosis with pressure dampening, ventricularization, and ST depression with angiography B. Left anterior descending artery: Transapical vessel which gives rise to 2 diagonal arteries. The left anterior descending artery has mild disease. The diagonal arteries have no significant disease C. Left circumflex artery: non-dominant and gives rise to 2 obtuse marginal arteries. The left circumflex has no significant disease. The obtuse marginal arteries have no significant disease D. Right coronary artery: dominant and gives rise to the posterior descending artery and posterolateral branch. The right coronary artery 80% ostial stenosis. The posterior descending artery has no significant disease. The PLB has no significant disease No Intervention performed Complications: none Impression: 1. Severe multivessel disease - critical ostial left main, severe ostial RCA 2. Normal LV filling pressure 3. No significant aortic valve gradient Plan: 1. 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 2. Medical therapy for CAD, CTS consult and admission for CABG 10/19/2023 10:12 AM Sarbjit Brooks MD Sarbjit Brooks MD CUP CATH ORDERABLES [facility]3] HEART AND VASCULAR CLIA #[id number] [address] [place] [address] * (ABNORMAL) MANUAL DIFFERENTIAL (10/19/2023 9:58 AM CDT) SEGMENTED NEUTROPHILS 55 % 10/19/2023 11:00 AM T [facility] LABORATORY SERVICES - [facility] LYMPHOCYTES RELATIVE 10(L) 43 - 53 % 10/19/2023 11:00 AM T [facility] LABORATORY SERVICES - [facility] ATYPICAL LYMPHOCYTES RELATIVE 2 0 - 5 % 10/19/2023 11:[address] [facility] - . [facility] MONOCYTES RELATIVE 33 % 10/19/2023 11:[address] [facility] - . [facility] EOSINOPHILS RELATIVE 1 % 10/19/2023 11:00 AM T [facility] LABORATORY SERVICES - [facility] NEUTROPHILS ABSOLUTE COUNT 6.22 1.90 - 7.00 K/uL 10/19/2023 11:00 AM [address] [facility] - . [place] LYMPHOCYTES ABSOLUTE 1.14 0.70 - 4.50 K/uL 10/19/2023 11:[address] [facility] - [facility] MONOCYTES ABSOLUTE 3.73(H) 0.10 - 1.30 K/uL 10/19/2023 11:[address] [facility] - . [facility] EOSINOPHILS ABSOLUTE 0.10 0.00 - 0.70 K/uL 10/19/2023 11:00 AM T [facility] LABORATORY SERVICES - [facility] TOTAL CELLS COUNTED IN DIFF 110 10/19/2023 11:00 AM T [facility] LABORATORY SERVICES - . [facility] RBC MORPHOLOGY abnormal 10/19/2023 11:00 AM [facility] [employer] SERVICES - . [facility] PLATELET EST. Consistent w Count 10/19/2023 11:00 AM [facility] [employer] SERVICES - . [facility] POIKILOCYTES 1+ /hpf 10/19/2023 11:00 AM [facility] LABORATORY SERVICES - . [facility] OVALOCYTES 1+ /hpf 10/19/2023 11:00 AM CDT [facility] SERVICES - [facility] Blood Venipuncture / Unknown 10/19/2023 9:58 AM CDT 10/19/2023 10:07 AM CDT Sarbjit Brooks MD HEMATOLOGY ORDERABL ES COM [facility] SERVICES - [facility] CLIA# [id number] [address] [place] [address] * LIPID PANEL (10/19/2023 9:58 AM CDT) CHOLESTEROL 151 <200 mg/dL 10/19/2023 11:47 AM CDT [facility] - . [facility] TRIGLYCERIDE 83 <150 mg/dL 10/19/2023 11:47 AM CDT [facility] - . [facility] HDL 44 40 - 59 mg/dL 10/19/2023 11:47 AM CDT [facility] - . [facility] LDL CALCULATED 90 <100 mg/dL 10/19/2023 11:47 AM CDT [facility] - . [facility] NON-HDL CHOLESTEROL 107 <130 mg/dL 10/19/2023 11:47 AM CDT [facility] - . [facility] Blood Venipuncture / Unknown 10/19/2023 9:58 AM CDT 10/19/2023 10:07 AM CDT Narrative [facility] LABORATORY SERVICES - [facility] - 10/19/2023 11:47 AM CDT TOTAL CHOLESTEROL ??mg/dL ??Desirable <200 ??Borderline high 200-239 ??High >=240 TRIGLYCERIDES ??mg/dL ??Normal <150 ??Borderline high 150-199 ??High 200-499 ??Very high >=500 HDL CHOLESTEROL ??mg/dL ??Low <40 ??Normal 40-59 ??Desirable >=60 NON HDL CHOLESTEROL mg/dL ??Optimal <130 ??Near Optimal 130-159 ??Borderline High 160-189 ??Very High >=190 CALCULATED LDL mg/dL ??LDL <70, OPTIMAL if have Atherosclerotic cardiovascular disease (ASCVD) ??or intermediate or higher (>7.5%) 10 year risk of ASCVD including most adults ??with diabetes. ??LDL <100, Optimal in adult patients with low (<7.5%) 10 year ASCVD risk ??LDL 100-160, Suboptimal ??LDL >160, High ??LDL >190, Very high ATPIII Guidelines Reference Ranges for Lipid Panels (NCEP/AMA) . Sarbjit Brooks MD CHEMISTRY ORDERABLE S [id number] [address] [facility] [place] [address] * (ABNORMAL) PROTIME-INR (10/19/2023 9:58 AM CDT) PROTIME 15.3(H) 12.7 - 15.1 Seconds 10/19/2023 10:30 AM CDT [facility] INR 1.2(H) 0.9 - 1.1 10/19/2023 10:30 AM CDT [facility] Blood Venipuncture / Unknown 10/19/2023 9:58 AM CDT 10/19/2023 10:07 AM CDT Narrative [facility] LABORATORY [facility] - 10/19/2023 10:30 AM CDT INR Therapeutic Range: Adult: ?? 2.0 - 3.0 for pulmonary embolism or prophylaxis against venous ?thrombosis or systemic embolization. 2.0 - 3.0 for patients with tissue heart valves. 2.5 - 3.5 for patients with mechanical heart valves or post FL. Pediatric ??(12 years and under): 1.5 - 3.0 Although the target range in children is not well established, ?INR values of 1.5 - 3.0 are recommended for most patients. ?Higher values have been used in children with prosthetic ?cardiac valves and hereditary clotting disorders. [place] (<3 days) therapeutic ranges have not been established. Sarbjit Brooks MD HEMATOLOGY ORDERABL ES [facility] LABORATORY SERVICES - [facility] CLIA# [id number] [address] [place] [address] * (ABNORMAL) CBC WITH DIFFERENTIAL (10/19/2023 9:58 AM CDT) WBC 11.4(H) 4.0 - 9.8 K/uL 10/19/2023 10:16 AM CDT [facility] LABORATORY SERVICES - . [facility] RBC 3.44(L) 3.90 - 4.90 M/uL 10/19/2023 10:16 AM CDT [facility] LABORATORY SERVICES - . [facility] HEMOGLOBIN 10.2(L) 11.8 - 14.8 g/dL 10/19/2023 10:16 AM CDT [facility] LABORATORY SERVICES - . [facility] HEMATOCRIT 31.5(L) 35.5 - 44.0 % 10/19/2023 10:16 AM CDT [facility] LABORATORY SERVICES - . [facility] MCV 91.6 82.0 - 99.0 fL 10/19/2023 10:16 AM CDT [facility] LABORATORY SERVICES - [facility] MCH 29.7 27.2 - 32.6 pg 10/19/2023 10:16 AM CDT [facility] LABORATORY SERVICES - . [facility] MCHC 32.4 31.5 - 35.5 g/dL 10/19/2023 10:16 AM CDT [facility] LABORATORY SERVICES - . [facility] RDW 13.9 11.5 - 14.5 % 10/19/2023 10:16 AM CDT [facility] LABORATORY SERVICES - [facility] RDW-STDEV 46.4 37.1 - 48.7 fL 10/19/2023 10:16 AM CDT [facility] LABORATORY SERVICES - . [facility] PLATELETS 247 140 - 350 K/uL 10/19/2023 10:16 AM CDT [facility] LABORATORY SERVICES - . [facility] MPV 11.7 9.3 - 12.4 fL 10/19/2023 10:16 AM CDT [facility] LABORATORY SERVICES - . [facility] Blood Venipuncture / Unknown 10/19/2023 9:58 AM CDT 10/19/2023 10:07 AM CDT Sarbjit Brooks MD HEMATOLOGY ORDERABL ES [facility] LABORATORY SERVICES - [facility]# [id number] [address] [place] [address] * (ABNORMAL) COMPREHENSIVE METABOLIC PANEL (10/19/2023 9:58 AM CDT) SODIUM 138 136 - 145 mmol/L 10/19/2023 11:47 AM T [facility] LABORATORY SERVICES - . [facility] POTASSIUM 3.1(L) 3.5 - 5.0 mmol/L 10/19/2023 11:47 AM T [facility] LABORATORY [facility] - . [facility] CHLORIDE 98 98 - 107 mmol/L 10/19/2023 11:47 AM T [facility] LABORATORY SERVICES - [facility] CO2 29 22 - 29 mmol/L 10/19/2023 11:47 AM T [facility] LABORATORY [facility] - . [facility] CALCIUM 10.0 8.6 - 10.2 mg/dL 10/19/2023 11:47 AM T [facility] LABORATORY SERVICES - . [place] BUN 22 8 - 23 mg/dL 10/19/2023 11:47 AM T [facility] LABORATORY SERVICES - . [facility] CREATININE 1.06(H) 0.51 - 0.95 mg/dL 10/19/2023 11:47 AM T [facility] LABORATORY SERVICES - . [facility] Comment:The GFR result is no t clinically significant on patients <18 or >70 years of age. GLUCOSE 113(H) 74 - 99 mg/dL 10/19/2023 11:47 AM T [facility] LABORATORY SERVICES - . [facility] TOTAL PROTEIN 7.9 6.7 - 8.6 g/dL 10/19/2023 11:47 AM T [facility] LABORATORY SERVICES - . [place] ALBUMIN 4.4 3.5 - 5.2 g/dL 10/19/2023 11:47 AM T [facility] LABORATORY SERVICES - . [facility] BILIRUBIN TOTAL 0.7 0.2 - 1.1 mg/dL 10/19/2023 11:47 AM T [facility] LABORATORY SERVICES - . [facility] ALKALINE PHOSPHATASE 83 35 - 104 U/L 10/19/2023 11:47 AM [facility] LABORATORY [facility] AST 14 <33 U/L 10/19/2023 11:47 AM [facility] LABORATORY [facility] ALT 7 <34 U/L 10/19/2023 11:47 AM [facility] LABORATORY [facility] GFR 53 mL/min/1.7 3 sq meter 10/19/2023 11:47 AM [facility] LABORATORY [facility] Comment:eGFR calculated with 2020 CKD-EPI equation. Vegetarian diet, extremely high or low muscle mass, and may affect results. Cystatin C with Glomerular Filtration Rate is a suitable alternative for these patients. ANION GAP 11 8 - 16 mmol/L 10/19/2023 11:47 AM [facility] Blood Venipuncture / Unknown 10/19/2023 9:58 AM CDT 10/19/2023 10:07 AM CDT Narrative [facility] LABORATORY [facility] - 10/19/2023 11:47 AM [facility] Samples containing indocyanine green cause interferences on Total and/or Direct Bilirubin and must not be measured. Sarbjit Brooks MD CHEMISTRY ORDERABLE S [facility]# [id number] [address] [facility] [place] [address] documented in this encounter Visit Diagnoses Diagnosis Coronary artery disease- Primary Coronary atherosclerosis of unspecified type of vessel, [place] or graft Pre-op testing Preoperative examination, unspecified Chronic diastolic congestive heart failure Chronic diastolic heart failure S/P CABG (coronary artery bypass graft) Postsurgical aortocoronary bypass status Atrial fibrillation Non-small cell cancer of right lung Benign hypertension Essential hypertension, benign Mixed hyperlipidemia Abnormal cardiovascular stress test Other nonspecific abnormal cardiovascular system function study Paroxysmal atrial fibrillation- Primary Atrial fibrillation Paroxysmal A-fib Atrial fibrillation Paroxysmal A-fib Atrial fibrillation documented in this encounter Administered Medications Inactive Administered Medications - up to 3 most recent administrations Medication Order MAR Action Action Date Dose Rate Site acetaminophen (TYLENOL) tablet 650 mg 650 mg, Oral, EVERY 6 HOURS PRN, Starting on Sun10/19/23 at 1631, Until Sun10/22/23 at 1800, Other (See Comment), See admin instructions, Routine Given 10/21/2023 11:42 PM CDT 650 mg Given 10/21/2023 3:18 AM CDT 650 mg Given 10/20/2023 8:45 PM CDT 650 mg acetaminophen (TYLENOL) tablet 650 mg 650 mg, Oral, EVERY 4 HOURS, First dose on Sun10/23/23 at 0845, Until Discontinued, Routine Given 10/28/2023 8:33 AM CDT 650 mg Given 10/28/2023 5:44 AM CDT 650 mg Given 10/28/2023 12:58 AM CDT 650 mg acetaminophen (TYLENOL) tablet 650 mg 650 mg, Oral, EVERY 4 HOURS PRN, Starting on Sun10/29/23 at 1030, Until Sun10/30/23 at 1930, Pain, Mild / Temperature, Give if Temp 100.4, Routine albumin, human (BUMINATE) 5 % injection 12.5 Gram 12.5 Gram, IV, ONE TIME ONLY, 1 dose, On Sun10/23/23 at 1500, Routine New Bag 10/23/2023 3:04 PM CDT 12.5 Grams albumin, human (BUMINATE) 5 % injection 12.5 Gram 12.5 Gram, IV, ONE TIME ONLY, 1 dose, On Sun10/23/23 at 1900, Routine New Bag 10/23/2023 7:06 PM CDT 12.5 Grams aluminum - magnesium - simethicone (MYLANTA) 200-200-20 mg/5 mL oral suspension 20 mL 20 mL, Oral, ONE TIME ONLY, 1 dose, On Sun10/20/23 at 1215, Routine Given 10/20/2023 12:22 PM CDT 20 mL amiodarone (CORDARONE) tablet 200 mg 200 mg, Oral, EVERY 8 HOURS, First dose on Sun10/22/23 at 2100, Until Discontinued, Routine Given 10/30/2023 1:37 PM CDT 200 mg Given 10/30/2023 5:29 AM CDT 200 mg Given 10/29/2023 8:32 PM CDT 200 mg amiodarone in dextrose (ISO-OSM) (NEXTERONE) 150 mg/100 mL (1.5 mg/mL) IVPB 150 mg 150 mg, IV, ONE TIME ONLY, 1 dose, On Sun10/26/23 at 1745, Routine New Bag 10/26/2023 6:00 PM CDT 150 mg 600 mL/hr amiodarone in dextrose (ISO-OSM) (NEXTERONE) 360 mg/200 mL (1.8 mg/mL) IV infusion 0.5 mg/min (16.6667 mL/hr, rounded to 16.67 mL/hr), IV, CONTINUOUS, Starting on Sun10/26/23 at 1745, Until Sun10/28/23 at 0733 Rate Change 10/27/2023 6:30 AM CDT 0.5 mg/min 16.67 mL/hr Rate Change 10/27/2023 12:06 AM CDT 0.5 mg/min 16.67 mL/hr New Bag 10/26/2023 11:36 PM CDT 1 mg/min 33.33 mL/hr amLODIPine (NORVASC) tablet 10 mg 10 mg, Oral, DAILY, First dose on Sun10/19/23 at 1145, Until Discontinued, Routine, Previous Med: amLODIPine (NORVASC) 10 mg tablet - Orig Sig - Take 1 Tablet (10 mg) by mouth daily. Given 10/22/2023 5:57 AM CDT 10 mg Given 10/21/2023 5:43 AM CDT 10 mg Given 10/20/2023 5:21 AM CDT 10 mg apixaban (ELIQUIS) tablet 5 mg 5 mg, Oral, TWO TIMES DAILY, First dose on Sun10/24/23 at 0900, Until Discontinued, Routine, Indication: Non-valvular A Fib Given 10/30/2023 5:29 AM CDT 5 mg Given 10/29/2023 6:16 PM CDT 5 mg Given 10/29/2023 6:22 AM CDT 5 mg aspirin (ECOTRIN EC) tablet 325 mg 325 mg, Oral, DAILY WITH BREAKFAST, First dose on Sun10/23/23 at 0700, Until Discontinued, Routine Given 10/24/2023 7:54 AM CDT 325 mg Given 10/23/2023 7:49 AM CDT 325 mg aspirin (ECOTRIN EC) tablet 81 mg 81 mg, Oral, DAILY, First dose on Sun10/19/23 at 1145, Until Discontinued, Routine, Previous Med: aspirin (ECOTRIN EC) 81 mg Tablet, Delayed Release (E.C.) - Orig Sig - Take 81 mg by mouth daily. Given 10/22/2023 5:56 AM CDT 81 mg Given 10/21/2023 5:43 AM CDT 81 mg Given 10/20/2023 5:22 AM CDT 81 mg aspirin (ECOTRIN EC) tablet 81 mg 81 mg, Oral, DAILY, First dose on Sun10/25/23 at 0600, Until Discontinued, Routine Given 10/30/2023 5:29 AM CDT 81 mg Given 10/29/2023 6:21 AM CDT 81 mg Given 10/28/2023 5:44 AM CDT 81 mg atorvastatin (LIPITOR) tablet 40 mg 40 mg, Oral, DAILY AT BEDTIME, First dose on Sun10/19/23 at 2100, Until Discontinued, Routine Given 10/21/2023 8:03 PM CDT 40 mg Given 10/20/2023 8:45 PM CDT 40 mg Given 10/19/2023 9:17 PM CDT 40 mg atorvastatin (LIPITOR) tablet 40 mg 40 mg, Oral, DAILY AT BEDTIME, First dose (after last modification) on Sun10/30/23 at 2100, Until Discontinued, Routine atorvastatin (LIPITOR) tablet 80 mg 80 mg, Oral, DAILY AT BEDTIME, First dose on Sun10/23/23 at 2100, Until Discontinued, Routine Given 10/29/2023 8:32 PM CDT 80 mg Given 10/28/2023 8:11 PM CDT 80 mg Given 10/27/2023 8:09 PM CDT 80 mg ceFAZolin (ANCEF) 1,000 mg in dextrose (iso-osmotic) 50 mL IVPB (PREMIX) 1,000 mg, IV, POST-PROCEDURE Q 8 HOURS, 2 doses, First dose on Sun10/22/23 at 2300, Last dose on Sun10/23/23 at 0700, Routine, Post-op - Floor, Antibiotic Indication: Surgical prophylaxis New Bag 10/23/2023 7:54 AM CDT 1,000 mg 100 mL/hr Rate Verify 10/23/2023 12:00 AM CDT 100 mL/hr New Bag 10/22/2023 11:33 PM CDT 1,000 mg 100 mL/hr dextrose 5% - sodium chloride 0.45% infusion IV, at 50 mL/hr, CONTINUOUS, Starting on Sun10/23/23 at 1245, Until Sun10/23/23 at 2049, Routine Rate Verify 10/23/2023 8:00 PM CDT 50 mL/h r Rate Verify 10/23/2023 7:00 PM CDT 50 mL/hr Restarted 10/23/2023 6:03 PM CDT 50 mL/hr dextrose 5% - sodium chloride 0.9% infusion IV, at 40 mL/hr, SEE ADMIN INSTRUCTIONS, Starting on Sun10/23/23 at 0759, Until Sun10/30/23 at 1930, Routine dextrose 50% (D50) syringe 12.5 Gram 12.5 Gram, IV, SEE ADMIN INSTRUCTIONS, Starting on Sun10/23/23 at 0759, Until Sun10/30/23 at 1930, Routine dextrose 50% (D50) syringe 25 Gram 25 Gram, IV, SEE ADMIN INSTRUCTIONS, Starting on Sun10/23/23 at 0759, Until Sun10/30/23 at 1930, Routine DOBUTamine in D5W (DOBUTREX) 250 mg/250 mL (1 mg/mL) infusion 2.5 mcg/kg/min ? 60.8 kg (9.12 mL/hr), IV, CONTINUOUS, Starting on Sun10/23/23 at 2100, Until Sun10/24/23 at 0712, On hold since Sun10/24/2023 at 0704 until manually unheld Rate Verify 10/24/2023 6:00 AM CDT 2.5 mcg/kg/min 9.12 mL/hr Rate Verify 10/24/2023 5:00 AM CDT 2.5 mcg/kg/min 9.12 mL/ hr Rate Verify 10/24/2023 4:00 AM CDT 2.5 mcg/kg/min 9.12 mL/ hr docusate sodium (COLACE) capsule 100 mg 100 mg, Oral, TWO TIMES DAILY, First dose on Sun10/23/23 at 1800, Until Discontinued, Routine Given 10/30/2023 5:29 AM CDT 100 mg Given 10/29/2023 6:16 PM CDT 100 mg Given 10/29/2023 6:21 AM CDT 100 mg famotidine (PEPCID) tablet 20 mg 20 mg, Oral, TWO TIMES DAILY, First dose on Sun10/20/23 at 1800, Until Discontinued, Routine Given 10/22/2023 5:57 AM CDT 20 mg Given 10/21/2023 5:29 PM CDT 20 mg Given 10/21/2023 5:43 AM CDT 20 mg famotidine (PEPCID) tablet 20 mg 20 mg, Oral, DAILY, First dose (after last reorder) on Sun10/23/23 at 0600, Until Discontinued, Routine, Post-op - Floor Given 10/23/2023 5:11 AM CDT 20 mg fentaNYL PF (SUBLIMAZE) 50 mcg/mL injection 25 mcg 25 mcg, IV, EVERY 1 HOUR PRN, Starting on Sun10/22/23 at 1800, Until Sun10/23/23 at 0831, Pain (See admin instructions), Routine, Post-op - Floor Given 10/23/2023 5:11 AM CDT 25 mcg Given 10/23/2023 2:25 AM CDT 25 mcg furosemide (LASIX) injection 20 mg 20 mg, IV, ONE TIME ONLY, 1 dose, On Sun10/23/23 at 2100, Routine Given 10/23/2023 9:03 PM CDT 20 mg glucagon HCL 1 mg/mL injection 1 mg 1 mg, IM, SEE ADMIN INSTRUCTIONS, Starting on Sun10/23/23 at 0759, Until Sun10/30/23 at 1930, Routine heparin in 0.45% NaCl 25,000 unit/250 mL infusion 11 Units/kg/hr ? 60.8 kg (6.688 mL/hr, rounded to 6.7 mL/hr), IV, TITRATE, Starting on Sun10/19/23 at 1800, Until Sun10/22/23 at 0000, Indication: A Fib, Dosing by: PER PROTOCOL: Delegate to facility protocol per indication, Re-bolus within Protocol? Yes, allow re-bolus Rate Verify 10/21/2023 5:30 PM CDT 11 Units/kg/hr 6.7 mL/hr Rate Verify 10/21/2023 10:22 AM CDT 11 Units/kg/hr 6.7 mL/ hr New Bag 10/21/2023 9:08 AM CDT 11 Units/kg/hr 6.7 mL/hr heparin injection 5,000 Units 5,000 Units, subCUT, EVERY 8 HOURS, First dose on Sun10/23/23 at 1300, Until Discontinued, Routine Given 10/24/2023 12:02 PM CDT 5,000 Units Abdominal Tissue Given 10/24/2023 5:20 AM CDT 5,000 Units A bdomen, Right Lower Quadrant Given 10/23/2023 8:17 PM CDT 5,000 Units A bdomen, Right Lower Quadrant heparin injection 900 Units 900 Units (rounded from 912 Units = 15 Units/kg ? 60.8 kg), IV, EVERY 6 HOURS PRN, Starting on 10/20/23 at 0000, Until Sun10/22/23 at 1800, Other (See Comment), per protocol, Routine Given 10/21/2023 12:28 AM CDT 900 Units hydroCHLOROthiazide tablet 25 mg 25 mg, Oral, DAILY, First dose on Sun10/19/23 at 1145, Until Discontinued, Routine, Previous Med: hydroCHLOROthiazide 25 mg tablet - Orig Sig - TAKE 1 TABLET BY MOUTH EVERY DAY Given 10/22/2023 5:56 AM CDT 25 mg Given 10/21/2023 6:19 AM CDT 25 mg Given 10/20/2023 5:22 AM CDT 25 mg hydroCHLOROthiazide tablet 25 mg 25 mg, Oral, DAILY, First dose (after last reorder) on Sun10/23/23 at 0900, Until Discontinued, Routine, Previous Med: hydroCHLOROthiazide 25 mg tablet - Orig Sig - TAKE 1 TABLET BY MOUTH EVERY DAY Given 10/24/2023 5:20 AM CDT 25 mg Given 10/23/2023 10:55 AM CDT 25 mg HYDROcodone-acetaminophen (NORCO) 10-325 mg per tablet 1 Tablet 1 Tablet, Oral, EVERY 4 HOURS PRN, Starting on Sun10/22/23 at 1800, Until Sun10/23/23 at 0831, Pain (See admin instructions), Routine Given 10/23/2023 7:49 AM CDT 1 Tablet HYDROcodone-acetaminophen (NORCO) 5-325 mg per tablet 1 Tablet 1 Tablet, Oral, EVERY 4 HOURS PRN, Starting on Sun10/22/23 at 1800, Until Sun10/23/23 at 0831, Pain (See admin instructions), Routine Given 10/23/2023 3:45 AM CDT 1 Tablet insulin regular 1 Units/mL in sodium chloride 0.9% infusion 0-25 Units/hr (0-25 mL/hr), IV, TITRATE, Starting on Sun10/22/23 at 1815, Until Sun10/23/23 at 0759 Rate Verify 10/23/2023 2:01 AM CDT 2 Units/hr 2 mL/hr Rate Change 10/23/2023 2:01 AM CDT 2 Units/hr 2 mL/hr Rate Verify 10/23/2023 1:02 AM CDT 1.5 Units/hr 1.5 mL/hr lidocaine (XYLOCAINE) 2 % viscous oral solution 10 mL 10 mL, Oral, ONE TIME ONLY, 1 dose, On Sun10/20/23 at 1215, Routine Given 10/20/2023 12:22 PM CDT 10 mL magnesium sulfate in water 2 gram/50 mL (4 %) IVPB 2 Gram 2 Gram, IV, DAILY PRN, Starting on Sun10/22/23 at 1800, Until Sun10/23/23 at 0831, Administer if Mg is < 2.0, Routine Rate Verify 10/22/2023 10:00 PM CDT 25 mL/hr Rate Verify 10/22/2023 9:00 PM CDT 25 mL/hr New Bag 10/22/2023 8:08 PM CDT 2 Grams 25 mL/hr melatonin disintegrating tablet 5 mg 5 mg, Oral, NIGHTLY PRN, Starting on Sun10/27/23 at 0740, Until Sun10/30/23 at 1930, Insomnia, Routine Given 10/29/2023 10:43 PM CDT 5 mg metoprolol (LOPRESSOR) 5 mg/5 mL injection 2.5 mg 2.5 mg, IV, ONE TIME ONLY, 1 dose, On Sun10/24/23 at 0830, Routine Given 10/24/2023 8:36 AM CDT 2.5 mg metoprolol (LOPRESSOR) 5 mg/5 mL injection 5 mg 5 mg, IV, ONE TIME ONLY, 1 dose, On Sun10/23/23 at 0800, Routine Given 10/23/2023 8:15 AM CDT 5 mg metoprolol (LOPRESSOR) 5 mg/5 mL injection 5 mg 5 mg, IV, ONE TIME ONLY, 1 dose, On Sun10/24/23 at 0715, Routine Given 10/24/2023 7:49 AM CDT 5 mg metoprolol tartrate (LOPRESSOR) tablet 12.5 mg 12.5 mg, Oral, PRE-PROCEDURE ONCE, 1 dose, Starting on Sun10/22/23 at 0000, Until Sun10/22/23 at 0835, Routine, Pre-op Given 10/22/2023 8:35 AM CDT 12.5 mg metoprolol tartrate (LOPRESSOR) tablet 25 mg 25 mg, Oral, TWO TIMES DAILY, First dose on Sun10/23/23 at 0815, Until Discontinued, Routine, On hold since Sun10/23/2023 at 1453 until manually unheld Given 10/23/2023 9:43 AM CDT 25 mg metoprolol tartrate (LOPRESSOR) tablet 25 mg 25 mg, Oral, TWO TIMES DAILY, First dose on Sun10/27/23 at 0645, Until Discontinued, Routine Given 10/30/2023 5:29 AM CDT 25 mg Given 10/29/2023 6:16 PM CDT 25 mg Given 10/29/2023 6:22 AM CDT 25 mg morphine 4 mg/mL injection 2 mg 2 mg, IV, ONE TIME ONLY, 1 dose, On Sun10/23/23 at 0830, Routine Given 10/23/2023 8:48 AM CDT 2 mg morphine 4 mg/mL injection 2 mg 2 mg, IV, EVERY 4 HOURS PRN, Starting on Sun10/23/23 at 0830, Until Sun10/30/23 at 1930, Pain (See admin instructions), Routine Given 10/23/2023 12:22 PM CDT 2 mg NICARDIPINE 20 MG/200 ML(0.1 MG/ML) IN SOD CHLOR(ISO) INTRAVENOUS SOLN (CABINET OVERRIDE) 1 dose, Starting on Sun10/22/23 at 1801, Until Sun10/22/23 at 1810, Chloé Burks N: cabinet override niCARdipine in NS (CARDENE) 20 mg/200 mL (0.1 mg/mL) infusion 0-15 mg/hr (0-150 mL/hr), IV, TITRATE, Starting on Sun10/22/23 at 1815, Until Sun10/23/23 at 1052, Post-op - Floor, Should this infusion be titrated? Yes, Initial infusion dose? 5 mg/hr, Titration Dose Increment? 2.5 mg/hr, Titration Interval? Other (see comments) / 15 min, Goal Type? SBP Goal, SBP Goal? Other (see comments), Goal: SBP 110-160 Rate Change 10/23/2023 8:18 AM CDT 5 mg/hr 50 mL/hr Bag Switched 10/23/2023 7:52 AM CDT 7.5 mg/hr 75 mL/hr Rate Change 10/23/2023 5:42 AM CDT 7.5 mg/hr 75 mL/hr norepinephrine Bitartrate-NS 4 mg/250 mL (16 mcg/mL) infusion 0-0.2 mcg/kg/min ? 60.8 kg (0-45.6 mL/hr), IV, TITRATE, Starting on Sun10/22/23 at 1815, Until Sun10/23/23 at 0756, Post-op - Floor, Should this infusion be titrated? Yes, Is this a CABG patient? Yes, Initial infusion dose? 0.05 mcg/kg/min, Titration Dose Increment? Other (see comments) / 0.05 mcg/kg/min, Titration Interval? 5 minutes, Goal Type? MAP Goal, MAP Goal? 65-75 Rate Change 10/22/2023 9:12 PM CDT 0.02 mcg/kg/min 4.56 mL/hr Rate Change 10/22/2023 9:05 PM CDT 0.04 mcg/kg/min 9.12 mL /hr New Bag 10/22/2023 9:02 PM CDT 0.02 mcg/kg/min 4.56 mL/ hr olmesartan (BENICAR) tablet 10 mg 10 mg, Oral, DAILY, First dose on Sun10/25/23 at 1030, Until Discontinued, Routine Given 10/26/2023 6:10 AM CDT 10 mg Given 10/25/2023 9:53 AM CDT 10 mg olmesartan (BENICAR) tablet 10 mg 10 mg, Oral, ONE TIME ONLY, 1 dose, On Sun10/26/23 at 1100, Routine Given 10/26/2023 11:03 AM CDT 10 mg olmesartan (BENICAR) tablet 20 mg 20 mg, Oral, DAILY, First dose (after last modification) on Sun10/27/23 at 0600, Until Discontinued, Routine Given 10/28/2023 5:45 AM CDT 20 mg Given 10/27/2023 6:19 AM CDT 20 mg olmesartan (BENICAR) tablet 40 mg 40 mg, Oral, DAILY, First dose on Sun10/19/23 at 1300, Until Discontinued, Routine, Previous Med: olmesartan (BENICAR) 40 mg tablet - Orig Sig - Take 40 mg by mouth daily. Medication bottle is Olmesartan Medoxomil 40 MG tab1 tab by mouth daily , On hold since Sun10/20/2023 at 1553 until manually unheld Given 10/20/2023 7:02 AM CDT 40 mg Given 10/19/2023 9:17 PM CDT 40 mg olmesartan (BENICAR) tablet 40 mg 40 mg, Oral, DAILY, First dose (after last reorder) on Sun10/23/23 at 0900, Until Discontinued, Routine, Previous Med: olmesartan (BENICAR) 40 mg tablet - Orig Sig - Take 40 mg by mouth daily. Medication bottle is Olmesartan Medoxomil 40 MG tab1 tab by mouth daily Given 10/24/2023 5:20 AM CDT 40 mg Given 10/23/2023 11:30 AM CDT 40 mg olmesartan (BENICAR) tablet 40 mg 40 mg, Oral, DAILY, First dose (after last modification) on Sun10/29/23 at 0600, Until Discontinued, Routine Given 10/30/2023 5:29 AM CDT 40 mg Given 10/29/2023 6:23 AM CDT 40 mg ondansetron (ZOFRAN) 4 mg/2 mL injection 4 mg 4 mg, IV, EVERY 6 HOURS PRN, Starting on Sun10/22/23 at 1800, Until Sun10/30/23 at 1930, Nausea/Emesis, Routine Given 10/29/2023 4:33 PM CDT 4 mg Given 10/27/2023 10:09 AM CDT 4 mg Given 10/25/2023 9:59 AM CDT 4 mg oxyCODONE (ROXICODONE) tablet 5 mg 5 mg, Oral, EVERY 6 HOURS PRN, Starting on Sun10/23/23 at 0829, Until Sun10/23/23 at 1217, Pain (See admin instructions), Routine Given 10/23/2023 11:29 AM CDT 5 mg oxyCODONE (ROXICODONE) tablet 5 mg 5 mg, Oral, EVERY 4 HOURS PRN, Starting on Sun10/23/23 at 1217, Until Sun10/30/23 at 1930, Pain (See admin instructions), Routine Given 10/30/2023 10:03 AM CDT 5 mg Given 10/29/2023 11:29 AM CDT 5 mg Given 10/29/2023 6:41 AM CDT 5 mg oxyCODONE (ROXICODONE) tablet 5 mg 5 mg, Oral, EVERY 4 HOURS PRN, Starting on Sun10/23/23 at 1217, Until Sun10/30/23 at 1930, Pain (See admin instructions), Routine Given 10/30/2023 5:22 PM CDT 5 mg Given 10/29/2023 10:43 PM CDT 5 mg Given 10/26/2023 9:07 PM CDT 5 mg pantoprazole (PROTONIX) tablet 20 mg 20 mg, Oral, TWO TIMES DAILY, First dose on Sun10/19/23 at 1145, Until Discontinued, Routine, Previous Med: pantoprazole (PROTONIX) 20 mg Tablet, Delayed Release (E.C.) - Orig Sig - Take 20 mg by mouth 2 times daily. , Indication: Gastroesophageal reflux disease (GERD) Given 10/22/2023 5:57 AM CDT 20 mg Given 10/21/2023 5:30 PM CDT 20 mg Given 10/21/2023 5:43 AM CDT 20 mg pantoprazole (PROTONIX) tablet 40 mg 40 mg, Oral, DAILY BEFORE BREAKFAST, First dose on Sun10/23/23 at 0900, Until Discontinued, Routine, Indication: Gastroesophageal reflux disease (GERD) Given 10/30/2023 5:29 AM CDT 40 mg Given 10/29/2023 6:22 AM CDT 40 mg Given 10/28/2023 5:44 AM CDT 40 mg papaverine 120 mg in sodium chloride 0.9% 8 mL topical solution 120 mg, Topical, INTRA-PROCEDURE ONCE, 1 dose, Starting on Sun10/22/23 at 0839, Until Sun10/22/23 at 1521, Routine, Intra-op Given 10/22/2023 3:21 PM CDT 120 mg Operative Site perflutren lipid microspheres (DEFINITY) 1.1 mg/mL injection 2 mL 2 mL, IV, INTRA-PROCEDURE ONCE, 1 dose, Starting on Sun10/25/23 at 0726, Until Sun10/25/23 at 0708, Routine Contrast Given 10/25/2023 7:08 AM CDT 2 mL potassium chloride (KLOR-CON) SR tablet 10 mEq 10 mEq, Oral, ONE TIME ONLY, 1 dose, On Sun10/26/23 at 0930, Routine Given 10/26/2023 11:03 AM CDT 10 mEq potassium chloride (KLOR-CON) SR tablet 40 mEq 40 mEq, Oral, ONE TIME ONLY, 1 dose, On Sun10/19/23 at 1630, Routine Given 10/19/2023 4:30 PM CDT 40 mEq potassium chloride (KLOR-CON) SR tablet 40 mEq 40 mEq, Oral, ONE TIME ONLY, 1 dose, On Sun10/22/23 at 0645, Routine Given 10/22/2023 6:55 AM CDT 40 mEq potassium chloride (KLOR-CON) SR tablet 40 mEq 40 mEq, Oral, ONE TIME ONLY, 1 dose, On Sun10/25/23 at 0945, Routine Given 10/25/2023 9:54 AM CDT 40 mEq potassium CHLORIDE 20 mEq/100 mL IVPB 20 mEq 20 mEq, IV, DAILY PRN, Starting on Sun10/22/23 at 1810, Until Sun10/23/23 at 0805, Other (See Comment), If CR > 2.0 call MD/PA/AIRCONDITIONING DRAFTING OFFICER prior to replacement. Give for K between 3.8 and 4.3, Routine Rate Verify 10/22/2023 10:00 PM CDT 50 mL/hr Rate Verify 10/22/2023 9:00 PM CDT 50 mL/hr New Bag 10/22/2023 8:13 PM CDT 20 mEq 50 mL/hr potassium CHLORIDE 40 mEq/100 mL IVPB 40 mEq 40 mEq, IV, DAILY PRN, Starting on Sun10/22/23 at 1811, Until Sun10/23/23 at 0805, Other (See Comment), if K is less than or equal to 3.7. Call CTS if Cr > 2.0 on initial CMP, Routine New Bag 10/23/2023 5:29 AM CDT 40 mEq 25 mL/hr prochlorperazine (COMPAZINE) injection 5 mg 5 mg, IV, EVERY 4 HOURS PRN, Starting on 10/27/23 at 1020, Until Sun10/30/23 at 1930, Nausea, Routine Given 10/27/2023 10:25 AM CDT 5 mg propofol (DIPRIVAN) 10 mg/mL continuous infusion 0-50 mcg/kg/min ? 60.8 kg (0-18.24 mL/hr), IV, TITRATE, Starting on Sun10/22/23 at 1815, Until Sun10/23/23 at 0756, Post-op - Floor, Should this infusion be titrated? Yes, Initial infusion dose? 5 mcg/kg/min, Titration Dose Increment? 5 mcg/kg/min, Titration Interval? 10 minutes, RASS Goal? -2 to 0 Rate Change 10/22/2023 8:50 PM CDT 5 mcg/kg/min 1.82 mL/hr Rate Change 10/22/2023 8:40 PM CDT 10 mcg/kg/min 3.65 mL/h r Rate Change 10/22/2023 8:32 PM CDT 15 mcg/kg/min 5.47 mL/h r pyRIDostigmine (MESTINON) tablet 60 mg 60 mg, Oral, TWO TIMES DAILY, First dose (after last modification) on Sun10/19/23 at 1800, Until Discontinued, Routine, Previous Med: pyRIDostigmine (MESTINON) 60 mg tablet - Orig Sig - Take 60 mg by mouth 3 times daily. Given 10/22/2023 5:5 6 AM CDT 60 mg Given 10/21/2023 5:30 PM CDT 60 mg Given 10/21/2023 5:43 AM CDT 60 mg simethicone chewable tablet 80 mg 80 mg, Oral, EVERY 6 HOURS PRN, Starting on 10/28/23 at 1015, Until Sun10/30/23 at 1930, Gas, Routine Given 10/30/2023 2:36 PM CDT 80 mg Given 10/30/2023 1:37 PM CDT 80 mg Given 10/28/2023 8:11 PM CDT 80 mg sodium bicarbonate 1 mEq/mL (8.4 %) vial 50 mEq 50 mEq, IV, ONE TIME ONLY, 1 dose, On Sun10/23/23 at 0215, Routine Given 10/23/2023 2:12 AM CDT 50 mEq sodium chloride 0.9% bolus solution 250 mL 250 mL, IV, ONE TIME ONLY, 1 dose, On Sun10/24/23 at 1830, at 500 mL/hr, Administer over 30 Minutes, Routine New Bag 10/24/2023 6:28 PM CDT 250 mL 500 mL/hr sodium chloride 0.9% infusion IV, at 125 mL/hr, PRE-PROCEDURE CONTINUOUS, Starting on Sun10/19/23 at 1000, Until Sun10/19/23 at 1813, Routine, Pre-Procedure (Invasive Cardiology) Restarted 10/19/2023 11:13 AM CDT 125 mL/hr 125 mL/hr New Bag 10/19/2023 10:33 AM CDT 125 mL/hr sodium chloride 0.9% infusion IV, at 125 mL/hr, CONTINUOUS, Starting on Sun10/19/23 at 1230, Until Sun10/19/23 at 1629, Routine, Post-Procedure (Invasive Cardiology) New Bag 10/19/2023 12:53 PM CDT 125 mL/hr sodium chloride 0.9% infusion IV, at 75 mL/hr, CONTINUOUS, Starting on Sun10/22/23 at 0715, Until Sun10/22/23 at 1800, Routine New Bag 10/22/2023 8:23 AM CDT 75 mL/hr sodium chloride 0.9% infusion IV, at 25 mL/hr, CONTINUOUS, Starting on Sun10/22/23 at 1815, Until Sun10/23/23 at 1214, Routine Rate Verify 10/23/2023 9:00 AM CDT 25 mL/hr Restarted 10/23/2023 8:25 AM CDT 25 mL/hr Rate Verify 10/23/2023 12:00 AM CDT 25 mL/hr sodium chloride 0.9% infusion IV, at 25 mL/hr, CONTINUOUS, Starting on Sun10/22/23 at 1815, Until Sun10/23/23 at 1214, Routine Restarted 10/23/2023 12:03 AM CDT 25 mL/ hr Rate Verify 10/22/2023 11:00 PM CDT 25 mL/hr Restarted 10/22/2023 10:13 PM CDT 25 mL/hr documented in this encounter Active and Recently Administered Medications Times are shown in CDT. Scheduled Medication Order 10/28/2023 10/29/2023 10/30/2023 acetaminophen (TYLENOL) tablet 650 mg (CANCELED) 650 mg, Oral, EVERY 4 HOURS, First dose on Sun10/23/23 at 0845, Until Discontinued, Routine 0058 (Given - Provider: Sadie Headley, TUNDE)0544 (Given - Provider: Sadie Headley RN)0833 (Given - Provider: Nicole Mtz RN)1200 (Refused - Provider: Nicole Mtz RN)1600 (Refused - Provider: Nicole Mtz, RN)2000 (Refused - Provider: Kait Fajardo, TUNDE) 0000 (Refused - Provider: Kait Fajardo RN)0400 (Refused - Provider: Kait Fajardo, TUNDE)0800 (Refused - Provider: Karma Palm, TUNDE) amiodarone (CORDARONE) tablet 200 mg 200 mg, Oral, EVERY 8 HOURS, First dose on Sun10/22/23 at 2100, Until Discontinued, Routine 0544 (Given - Provider: Sadie Headley RN)1221 (Given - Provider: Nicole Mtz RN)2010 (Given - Provider: Kait Fajardo, TUNDE) 0622 (Given - Provider: Kait Fajardo RN)1247 (Given - Provider: Karma Palm, TUNDE)203 (Given - Provider: Roseanne Tucker, TUNDE) 0529 (Given - Provider: Chloé Barrera, TUNDE)1337 (Given - Provider: Karma Palm, TUNDE) apixaban (ELIQUIS) tablet 5 mg 5 mg, Oral, TWO TIMES DAILY, First dose on Sun10/24/23 at 0900, Until Discontinued, Routine, Indication: Non-valvular A Fib 0544 (Given - Provider: Sadie Headley, TUNDE)1738 (Given - Provider: Nicole Mtz RN) 0622 (Given - Provider: Kait Fajardo RN)1815 (Given - Provider: Karma Palm RN) 528 (Given - Provider: Chloé Barrera, TUNDE) aspirin (ECOTRIN EC) tablet 81 mg 81 mg, Oral, DAILY, First dose on Sun10/25/23 at 0600, Until Discontinued, Routine 0544 (Given - Provider: Sadie Headley RN) 620 (Given - Provider: Kait Fajardo RN) 528 (Given - Provider: Chloé Barrera RN) atorvastatin (LIPITOR) tablet 40 mg 40 mg, Oral, DAILY AT BEDTIME, First dose (after last modification) on Sun10/30/23 at 2100, Until Discontinued, Routine atorvastatin (LIPITOR) tablet 80 mg (CANCELED) 80 mg, Oral, DAILY AT BEDTIME, First dose on Sun10/23/23 at 2100, Until Discontinued, Routine 2010 (Given - Provider: Kait Fajardo RN) 2031 (Given - Provider: Roseanne Tucker RN) dextrose 5% - sodium chloride 0.9% infusion IV, at 40 mL/hr, SEE ADMIN INSTRUCTIONS, Starting on Sun10/23/23 at 0759, Until Sun10/30/23 at 1930, Routine dextrose 50% (D50) syringe 12.5 Gram 12.5 Gram, IV, SEE ADMIN INSTRUCTIONS, Starting on Sun10/23/23 at 0759, Until Sun10/30/23 at 1930, Routine dextrose 50% (D50) syringe 25 Gram 25 Gram, IV, SEE ADMIN INSTRUCTIONS, Starting on Sun10/23/23 at 0759, Until Sun10/30/23 at 1930, Routine docusate sodium (COLACE) capsule 100 mg 100 mg, Oral, TWO TIMES DAILY, First dose on Sun10/23/23 at 1800, Until Discontinued, Routine 0544 (Given - Provider: Sadie Headley RN)1737 (Given - Provider: Nicole Mtz RN) 06 (Given - Provider: Kait Fajardo RN)1815 (Given - Provider: Karma Palm RN) 05 (Given - Provider: Chloé Barrera, TUNDE) glucagon HCL 1 mg/mL injection 1 mg 1 mg, IM, SEE ADMIN INSTRUCTIONS, Starting on Sun10/23/23 at 0759, Until Sun10/30/23 at 1930, Routine metoprolol tartrate (LOPRESSOR) tablet 25 mg 25 mg, Oral, TWO TIMES DAILY, First dose on Sun10/27/23 at 0645, Until Discontinued, Routine 0544 (Given - Provider: Sadie Headley RN)1738 (Given - Provider: Nicole Mtz RN) 0622 (Given - Provider: Kait Fajardo RN)1816 (Given - Provider: Karma Palm RN) 0529 (Given - Provider: Chloé Barrera, UTNDE) naloxone (NARCAN) 0.4 mg/mL injection 0.1-0.4 mg 0.1-0.4 mg, IV, SEE ADMIN INSTRUCTIONS, Starting on Sun10/23/23 at 1214, Until Sun10/30/23 at 1930, Routine olmesartan (BENICAR) tablet 20 mg (CANCELED) 20 mg, Oral, DAILY, First dose (after last modification) on Sun10/27/23 at 0600, Until Discontinued, Routine 0545 (Given - Provider: Sadie Headley RN) olmesartan (BENICAR) tablet 40 mg 40 mg, Oral, DAILY, First dose (after last modification) on Sun10/29/23 at 0600, Until Discontinued, Routine 0623 (Given - Provider: Kait Fajardo RN) 0529 (Given - Provider: Chloé Barrera, TUNDE) pantoprazole (PROTONIX) tablet 40 mg 40 mg, Oral, DAILY BEFORE BREAKFAST, First dose on Sun10/23/23 at 0900, Until Discontinued, Routine, Indication: Gastroesophageal reflux disease (GERD) 0544 (Given - Provider: Sadie Headley RN) 0622 (Given - Provider: Kait Fajardo, TUNDE) 0529 (Given - Provider: Chloé Barrera RN) PRN Medication Order 10/28/2023 10/29/2023 10/30/2023 acetaminophen (TYLENOL) tablet 650 mg 650 mg, Oral, EVERY 4 HOURS PRN, Starting on Sun10/29/23 at 1030, Until Sun10/30/23 at 1930, Pain, Mild / Temperature, Give if Temp 100.4, Routine bisacodyL (DULCOLAX) rectal suppository 10 mg 10 mg, Rectal, DAILY PRN, Starting on Sun10/23/23 at 1214, Until Sun10/30/23 at 1930, Constipation, Routine magnesium hydroxide (MILK OF MAGNESIA) oral suspension 30 mL 30 mL, Oral, DAILY PRN, Starting on Sun10/23/23 at 1214, Until Sun10/30/23 at 1930, Constipation, Routine melatonin disintegrating tablet 5 mg 5 mg, Oral, NIGHTLY PRN, Starting on Sun10/27/23 at 0740, Until Sun10/30/23 at 1930, Insomnia, Routine 2243 (Given - Provider: Chloé Barrera RN) morphine 4 mg/mL injection 2 mg 2 mg, IV, EVERY 4 HOURS PRN, Starting on Sun10/23/23 at 0830, Until Sun10/30/23 at 1930, Pain (See admin instructions), Routine ondansetron (ZOFRAN) 4 mg/2 mL injection 4 mg 4 mg, IV, EVERY 6 HOURS PRN, Starting on Sun10/22/23 at 1800, Until Sun10/30/23 at 1930, Nausea/Emesis, Routine 1633 (Given - Provider: Karma Palm RN) oxyCODONE (ROXICODONE) tablet 5 mg 5 mg, Oral, EVERY 4 HOURS PRN, Starting on Sun10/23/23 at 1217, Until Sun10/30/23 at 1930, Pain (See admin instructions), Routine 1739 (Given - Provider: Nicole Mtz RN)2240 (Given - Provider: Kait Fajardo RN) 0641 (Given - Provider: Kait Fajardo RN)1129 (Given - Provider: Karma Palm RN) 1003 (Given - Provider: Karma Palm RN) oxyCODONE (ROXICODONE) tablet 5 mg 5 mg, Oral, EVERY 4 HOURS PRN, Starting on Sun10/23/23 at 1217, Until Sun10/30/23 at 1930, Pain (See admin instructions), Routine 2243 (Given - Provider: Chloé Barrera RN) 0959 (Canceled Entry - Provider: Karma Palm RN)1722 (Given - Provider: Karma Palm RN) prochlorperazine (COMPAZINE) injection 5 mg 5 mg, IV, EVERY 4 HOURS PRN, Starting on 10/27/23 at 1020, Until 10/30/23 at 1930, Nausea, Routine simethicone chewable tablet 80 mg 80 mg, Oral, EVERY 6 HOURS PRN, Starting on 10/28/23 at 1015, Until 10/30/23 at 1930, Gas, Routine 1020 (Given - Provider: Nicole Mtz RN)2010 (Given - Provider: Kait Fajardo RN) 1337 (Given - Provider: Karma Palm RN)1436 (Given - Provider: Karma Palm RN - Comment: given per verbal from Arash) documented in this encounter Care Teams Two Way Radio Technician Relationship Specialty Start Date End Date Aliza Bian MD [address] [place] [address] PCP - General Family Practice 11/22/21 documented as of this encounter
--- OUTSIDE RECORDS SUMMARY | 2024-07-01 00:40 | XMS_ITS | Encounter Summary ---
Author Organization [facility] Address [address] [place] [address] Care Team Providers Care Crm Marketing Executive Name Role Phone Aliza Bain MD Primary [...] and Family Not on file 07/29/2020 Attends [employer] Not on file 07/29 Do you belong to any clubs o r organizations such as mormon groups, unions, fraternal or athletic groups, or [...] st Contact Info) Description 2024 11:00 AM REFINING STILL OPERATOR Appointment [facility] [address] [place] [address] 07/21/2024 9:45 AM REFINING STILL OPERATOR Appointment [facility] Floor Tech [address] [place] [phone] Kiel Vasquez MD [address] [place] [address] 07/21/2024 9:53 AM REFINING STILL OPERATOR Hospital Encounter [facility] Floor Tech [address] [place] [address] Kiel Vasquez MD [address] [place] [address] Jesse Lackey-shirley 07/21/2024 9:53 AM REFINING STILL OPERATOR - 07/21/2024 11:46 AM REFINING STILL OPERATOR Surgery [facility] Floor Tech [address] [place] [address] Kiel Vasquez MD [address] [place] [address] 2014 [place] [address] Left atrial appendage closure percutaneous 07/28/2024 8:30 AM REFINING STILL OPERATOR Office Visit [facility] Oncology and Hematology - [place] [address] [facility] [address] [place] [address] Nahid Hickman MD [address] [facility] [address] [place] [address] 09/09/2024 1:00 PM CDT Office Visit [facility] Heart and Vascular At [address] 2014 [place] [address] Kiel Vasquez MD [address] [place] [address] 2014 [place] [address] 12/16/2024 11:00 AM CDT Office Visit [facility] HEART AND VASCULAR EP AT [address] [place] [address] Demetrius Bowling DNP [address] [place] [address] 2014 [place] [address] 02/05/2025 10:45 AM CDT Telephone Check Up [facility] Heart and Vascular At [address] [place] [address] 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 FNP [address] [place] [address] documented as of this encounter Visit Diagnoses Not on filedocumented in this encounter Care Teams Crm Marketing Executive Relationship Specialty Start Date End Date Aliza Bain MD [address] [place] [address] PCP - General Family Practice 11/22/21 documented as of this encounter
--- OUTSIDE RECORDS SUMMARY | 2024-07-01 00:40 | XMS_ITS | Encounter Summary ---
Author Organization [facility] Address [address] [place] [address] Care Team Providers Care Physical Geographer Name Role Phone Aliza Bain MD Primary Care Provider Encounter Details Date Type Department Care Team (Late st Contact Info) Description 10/22/2023 Orders Only [facility] Cardiovas and Thor Surg at [facility] Heart Hosp [id number] [place] [address] Edinson Ferrell MD [address] [place] [address] Coronary artery disease, unspecified vessel or lesion type, unspecified whether angina present, unspecified whether gakona or transplanted heart (Primary Dx) Social History Tobacco Use Types [...] st Contact Info) Description 2024 11:00 AM CROSSING WATCHMAN Appointment [facility] [address] [place] [address] [place] [address] 07/21/2024 9:45 AM CROSSING WATCHMAN Appointment [facility] Measurement Analyst [address] [place] [address] Kiel Vasquez MD [address] [place] [address] 07/21/2024 9:53 AM CROSSING WATCHMAN Hospital Encounter [facility] Measurement Analyst [address] [place] [address] Kiel Vasquez MD [address] [facility] 2014 [place] [address] Paroxysmal A-fib 07/21/2024 9:53 AM CROSSING WATCHMAN - 07/21/2024 11:46 AM CROSSING WATCHMAN Surgery [facility] Measurement Analyst [address] [place] [address] Kiel Vasquez MD [facility] S [facility] 2014 [place] [address] Left atrial appendage closure percutaneous 07/28/2024 8:30 AM CROSSING WATCHMAN Office Visit [facility] Oncology and Hematology - [place] [address] [address] Nahid Hickman MD [address] [facility] [address] [place] [address] 09/09/2024 1:00 PM CDT Office Visit [facility] Heart and Vascular At [address] [place] [address] Kiel Vasquez MD [facility] S [facility] 2014 [place] [address] 12/16/2024 11:00 AM CDT Office Visit [facility] HEART AND VASCULAR EP AT [address] [place] [address] Demetrius Bowling DNP [facility] S [facility] 2014 [place] [address] 02/05/2025 10:45 AM CDT Telephone Check Up [facility] Heart and Vascular At [address] [place] [address] 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, CROP AND SOIL TECHNICIAN [address] [place] [address] documented as of this encounter Results * XR CHEST PA AND LATERAL 2 VW (11/21/2023 11:53 AM CDT) Anatomical Region Laterality Modality Chest Computed Radiogr aphy 11/21/2023 11:5 3 AM CDT Impressions 11/22/2023 9:41 AM CDT IMPRESSION: ?? Bilateral pleural effusions with bibasilar atelectasis, left greater than right. ?? DICTATION LOCATION: Location 2 - [facility] 11/22/2023 9:41 AM CDT EXAM: ??XR CHEST [...] left greater than right. DICTATION LOCATION: Location - [facility] Edinson Ferrell MD DIAGNOSTIC IMAGING O RDERABLES documented in this encounter Visit Diagnoses Diagnosis Coronary artery disease, unspecified vessel or lesion type, unspecified whether angina present, unspecified whether gakona or transplanted heart- Primary Coronary artery disease, unspecified vessel or lesion type, unspecified whether angina present, unspecified whether gakona or transplanted heart Paroxysmal atrial fibrillation- Primary Atrial fibrillation Paroxysmal A-fib Atrial fibrillation Paroxysmal A-fib Atrial fibrillation documented in this encounter Care Teams Physical Geographer Relationship Specialty Start Date End Date Aliza Bain MD [address] [place] [address] PCP - General Family Practice 11/22/21 documented as of this encounter
--- OUTSIDE RECORDS SUMMARY | 2024-07-01 00:40 | XMS_ITS | Encounter Summary ---
Author Organization [facility] Address [address] [place] [address] Care Team Providers Care Senior Geotechnical Engineer Name Role Phone Aliza Bain MD Primary Care Provider Reason for Visit * Reason Onset Date Comments Needs Appointment 10/22/2023 Encounter Details Date Type Department Care Team (Late st Contact Info) Description 10/22/2023 Telephone [facility] Cardiovas and Thor Surg at [facility] Heart Hosp [address] [facility] [address] [place] [address] Edinson Ferrell MD [address] [facility] [address] [place] [address] Needs Appointment Social History Tobacco Use Types Packs/Day [...] and Family Not on file 07/29/2020 Attends [employer] Not on file 07/29 Do you [...] Telephone Encounter - Amy Recinos RN - 10/22/2023 11:53 AM CDT Patient undergoing Coronary Artery Bypass Grafting today by Dr. Ferrell. Please arrange 4-5 week follow-up with Dr. Vasquez or Advanced Practitioner. Please let our office know when completed, so that we can place the appointment in the patient's discharge instructions. documented in this encounter Plan of Treatment Upcoming Encounters Date Type Department Care Team (Late st Contact Info) Description 2024 11:00 AM STAVE BLOCK SPLITTER Appointment [facility] [address] [place] [address] 07/21/2024 9:45 AM STAVE BLOCK SPLITTER Appointment [facility] Distribution Clerk [address] [place] [address] Kiel Vasquez MD [address] [facility] 2014 [place] [address] 07/21/2024 9:53 AM STAVE BLOCK SPLITTER Hospital Encounter [facility] Distribution Clerk [address] [place] [address] Kiel Vasquez MD [address] [facility] [address] [place] [address] Paroxysmal A-fib 07/21/2024 9:53 AM STAVE BLOCK SPLITTER - 07/21/2024 11:46 AM STAVE BLOCK SPLITTER Surgery [facility] Distribution Clerk [address] [place] [address] Kiel Vasquez MD [address] [facility] [address] [place] [address] Left atrial appendage closure percutaneous 07/28/2024 8:30 AM STAVE BLOCK SPLITTER Office Visit [facility] Oncology and Hematology - [place] [address] [place] [address] Nahid Hickman MD [address] [address] 09/09/2024 1:00 PM CDT Office Visit [facility] Heart and Vascular At [facility] [address] [facility] 2014 [place] [address] Kiel Vasquez MD [address] [facility] [address] [place] [address] 12/16/2024 11:00 AM CDT Office Visit [facility] HEART AND VASCULAR EP AT [facility] [address] [facility] [address] [place] [address] Demetrius Bowling, TRUONG [address] [facility] 2014 [place] [address] 02/05/2025 10:45 AM CDT Telephone Check Up [facility] Heart and Vascular At [place] [address] [address] [facility] 2014 [place] [address] 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 FNP [address] [place] [address] documented as of this encounter Visit Diagnoses Not on filedocumented in this encounter Care Teams Senior Geotechnical Engineer Relationship Specialty Start Date End Date Aliza Bain MD [address] [place] [address] PCP - General Family Practice 11/22/21 documented as of this encounter
--- OUTSIDE RECORDS SUMMARY | 2024-07-01 00:41 | XMS_ITS | Encounter Summary ---
Author Organization [facility] Address [address] [place] [address] Care Team Providers Care Unstacker Name Role Phone Aliza Bain MD Primary Care Provider Reason for Visit * Auth/Cert (Routine) Specialty Diagnoses / Procedures Referred By Contac t Referred To Contact Cardiology Procedures CA CATH PLMT L HRT & ARTS W/NJX & ANGIO IMG S&I Left heart cath Sarbjit Brooks MD [address] [place] [address] [facility] [employer] [address] [place] [address] Referral ID Status Reason Start Date Expiration Date Visits Re quested Visits Authorized [id number] 1 1 Encounter Details Date Type Department Care Team (Late st Contact Info) Description 10/19/2023 11:00 AM CDT - 10/19/2023 12:00 PM CDT Surgery [facility] [employer] [address] [place] [address] Sarbjit Brooks MD [address] [place] [address] Left heart cath Surgery Details Date/Time Status Location OR Service Patient Class Case Class Case Type Trauma Case? 10/19/2023 11:00 AM Posted [facility] INVASIVE CARDIOLOGY HVH CCL 1 Interventional Cardiology Outpatient Elective No Panel 1 Procedure LRB Anes Op Region Wound Class Comments Left heart cath N/A Surgeon Surgeon Role Service Panel Sarbjit Brooks MD Primary Interventional Car diology 1 documented in this encounter Social History Tobacco [...] Sign Reading Time Taken Comments Blood Pressure 153/43 10/19/2023 12:00 PM CDT Pulse 74 10/19/2023 12:00 PM CDT Temperature 36.6 ??C (97.9 ??F) 10/19/2023 10:07 AM C DT Respiratory Rate 15 10/19/2023 12:00 PM CDT Oxygen Saturation 97% 10/19/2023 12:00 PM CDT Inhaled Oxygen Concentration - - Weight 60.8 kg (134 lb) 10/19/2023 10:07 AM CDT Height 160 cm (5' 3 ) 10/19/2023 10:07 AM CDT Body Mass Index 23.42 10/19/2023 10:07 AM CDT documented in this encounter Discharge Summaries * Arash Watson PA - 10/30/2023 2:59 PM CDT Images from the original note were not included. CTS Discharge Summary Zee Nguyen Michelle [id number] PRIMARY CARE PHYSICIAN: Aliza Bain MD Admission [...] ARTERY performed by Edinson Ferrell MD at [facility] OR HX HYSTERECTOMY HX SPLENECTOMY HX THORACOTOMY Right 08/31/2020 THORACOTOMY performed by Edinson Ferrell MD at [facility] OR HX TONSILLECTOMY HX TRIGGER FINGER REPAIR CA ECHO TRANSESOPHAG MONTR CARDIAC PUMP FUNCTJ N/A 10/22/2023 TRANSESOPHAGEAL ECHOCARDIOGRAM performed by Shin Rosenbaum DO at [facility] OR CA INCISION DEEP OPENING BONE CORTEX THORAX N/A 10/22/2023 STERNOTOMY performed by Edinson Ferrell MD at [facility] OR CA NDSC SURG W/VIDEO-ASSISTED HARVEST VEIN CABG Left 10/22/2023 VEIN HARVEST ENDOSCOPIC performed by Edinson Ferrell MD at [facility] OR CA RMVL LUNG OTHER THAN PNEUMONECTOMY 1 LOBE LOBECT Right 08/31/2020 LUNG LOBECTOMY performed by Edinson Ferrell MD at [facility] OR Procedures: Procedure(s) and Anesthesia Type: Panel 1: * CORONARY ARTERY BYPASS GRAFT X3 OFF PUMP WITH LEFT INTERNAL MAMMARY ARTERY - General * STERNOTOMY - General * VEIN HARVEST ENDOSCOPIC - General Panel 2: * TRANSESOPHAGEAL ECHOCARDIOGRAM - General Detailed Operative Procedure: On 10/22/2023, Edinson Ferrell MD Physician Specialty: Thoracic Surgery Operative Report Signed Date of Service: 10/25/2023 4:05 PM [place], [place] Patient: ZEE MARTINEZ CSN: [id number] : 1945 Provider: Edinson Ferrell MD OPERATIVE [...] the left lower extremity. Off-pump CABG x3. CIRCUS ROUSTABOUT: ERIC Fajardo. ANESTHESIA: General endotracheal with intraoperative [...] period, alternatives were all explained. Questions were answered.Possible complications were explained including, but not limited to infection, bleeding, need for transfusion, reexploration, OH, CVA, renal and pulmonary GI complications, vascular [...] was half dose heparinized and we utilized [employer] stabilizing system to approach the vessel. The [...] opening the WESLEY prior to opening the [place] vessel, the EKG changes resolved, confirming our [...] stable condition. Edinson Ferrell MD MMODL D: [id number] V: [id number] CC Page 1 of 2 Last signed by: Edinson Ferrell MD at 10/30/2023 12:46 PM Revision History Surgeon: Dr. Edinson Ferrell Consults: none Vitals: Vitals: 10/30/23 0400 10/30/23 [...] Impression IMPRESSION: Stable chest radiograph. DICTATION LOCATION: [address] XR CHEST PA OR AP 1 [...] also new bilateral basilar atelectasis. DICTATION LOCATION: [address] Discharge Medications: Medication List START taking these [...] [facility] [address] [address] amiodarone 200 mg tablet atorvastatin 40 mg [...] to infection, bleeding, need for transfusion, reexploration, OH, CVA, renal and pulmonary GI complications, vascular [...] QD, Lopressor 25mg BID Medications -- Hold [employer] Norvasc, HCTZ Pulm: on room air, Incentive [...] H/H 9.4/28.6 reflecting 3% drop from baseline. [id number] PRBC on 10/23. H/H is up , Platelets up trending. 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 Body mass index is 23.74 [...] appointment. The patientalso has an appointment with Wellness Program Manager, Louise Marie, on 11/21 @ 1000 Written [...] not included. [facility] [address] [place] [address] Dr. Yulia Ferrell Office # [phone] (nurse line ext. [phone]) Please call the [...] social activities, like going to the movies, yarsani, and restaurants. Sternal Precautions: Do not drive [...] and pulling with your arms. Avoid repetitive gbsj-uq-rmke or imah-zyh-pyofv arm movements. Getting out of and into [...] stop. Refer to the smoking cessation material youreceived from Cardiac Rehab or contact the [place] [employer] for further information on smoking cessation. Daily weight: If you should [...] a narcotic pain reliever such as hydrocodone ([place]) is prescribed for two to four weeks [...] days of your appointment time @ any [facility] facility with Radiology. The chest x-ray has been ordered, and you do not need an appointment. Follow-up with your Wellness Program Manager's Nurse Practitioner, Louise Marie, on November 21 at 10:00 AM. Chronic conditions will be addressed by Aliza Bain MD. Please follow-up with Aliza Bain MD in the next 4 weeks. We encourage you to enroll in: at [email or web address]. It is a valuable tool to manage your healthcare needs. Activation code not generated Current [place] Status: Active documented in this encounter Medications [...] 10/30/23 1500 Discharge Planning Plan Discharge To [facility] facility Patient/Family Communications Confirmed Discharge Plan Discharge Plan Agreed Upon Patient Resource List Given Care facilities Resource List Given To Patient Information Given Concerning Criteria for (skilled) nursing facility Follow-up on Referrals Sent Yes Has discharge transport been arranged? Yes Transportation Provider [facility] Transportation Provider Final Discharge Arrangements Final Discharge Disposition SNF Care Facility Name [facility] Care Facility Contact Name [facility] Services Arranged For Discharge Transportation assistance;[facility] facility (SNF) Date Of Pick-Up 10/30/23 Time [...] Marilynn Gabriel ,who can be reached at [phone]. AUBREY Grullon Social Work I-IPCM AUBREY Grullon, 10/30/2023 3:12 PM * VladimirSerenity maloney, CONTACT WORKER - 10/30/2023 9:05 AM CDT CTS SPCU [...] 72 hours. CBC: Recent Labs 10/23/23 1715 10/24/23 0453 10/25/23 0409 10/26/23 0504 WBC 31.0* 28.7* [...] QD, Lopressor 25mg BID Medications -- Hold [employer] Norvasc, HCTZ Pulm: on room air, Incentive [...] H/H 9.4/28.6 reflecting 3% drop from baseline. [id number] PRBC on 10/23. H/H is up , Platelets up trending. 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 Body mass index is 23.74 kg/m??.: Patient is Normal weight with BMI 18.5-24.9 Former Tobacco Abuse: Performed cessation education Prophylaxis: Eliquis and PPI. Perform vaccine screen and administered required vaccines Nutrition: Advance diet as tolerated DIET CARDIAC Low Cholesterol (AHA),; 2GM Sodium (Low), Consult Cardiac rehab and PT/OT Shower/Bathe patient daily Labs/Radiology: lab holiday Discharge Disposition: CM following for post acute [...] the last 72 hours. CBC: Recent Labs 10/23/23171410/24/233 10/25/2340810/26/23 0504 WBC 31.0* 28.7* 24.8* 16.0* HGB [...] QD, Lopressor 25mg BID Medications -- Hold [employer] Norvasc, HCTZ Pulm: on room air, Incentive [...] H/H 9.4/28.6 reflecting 3% drop from baseline. [id number] PRBC on 10/23. H/H is up , Platelets up trending. 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 Body mass index is 23.74 kg/m??.: Patient is Normal weight with BMI 18.5-24.9 Former Tobacco Abuse: Performed cessation education Prophylaxis: Eliquis and PPI. Perform vaccine screen and administered required vaccines Nutrition: Advance diet as tolerated DIET CARDIAC Low Cholesterol (AHA),; 2GM Sodium (Low), Consult Cardiac rehab and PT/OT Shower/Bathe patient daily Labs/Radiology: lab holiday Discharge Disposition: CM following for post acute [...] from the original note were not included. [facility] Adult Therapeutic Orders Protocol [facility] Approved by: [facility] - Medical Executive Committee Approval Date: 06/07/2023 ORDERS ARE ENTERED ???PER PROTOCOL?? Enter the protocol in the patient's electronic health record using smartphrase:.nursingtheraputicordersprotocol For adult inpatients with complaints of minor discomfort Nursing Orders: [id number] Ice Pack/Cold Therapy 20 minutes every 2 hours to affected area. [id number] Warm Compress/Heat to affected area 20 minutes [...] QD, Lopressor 25mg BID Medications -- Hold [employer] Norvasc, HCTZ Pulm: Incentive spirometry, and ambulate [...] H/H 9.9/29.8 reflecting 3% drop from baseline. [id number] PRBC on 10/23. H/H is up , Platelets up trending. Plan: Trending labs with repeat CBC in 48 hours Drains/Wires: removed Lines: D/c CVL Pain Control: Continue oral pain medication, IV narcotics for breakthrough pain, and scheduled tylenol. 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 Body mass index is 23.74 [...] x3 Data Review: BMP: Recent Labs 10/23/23 17110/24/233 10/25/23 0409 10/26/23 0504 NA 135* 136 [...] last 72 hours. CBC: Recent Labs 10/23/23171410/24/2345210/25/23 04010/26/23 0504 WBC 31.0* 28.7* 24.8* 16.0* HGB [...] if HR remains stable Medications -- Hold [employer] norvasc, HCTZ Pulm: Incentive spirometry, and ambulate [...] H/H 9.9/29.8 reflecting 3% drop from baseline. [id number] PRBC on 10/23. H/H is up , Platelets up trending. Plan: Trending labs with repeat CBC in 48 hours Drains/Wires: removed Lines: D/c CVL Pain Control: Continue oral pain medication, IV narcotics for breakthrough pain, and scheduled tylenol. 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 Body mass index is 23.74 [...] given, see MAR), afebrile. NSR, Bps okay, pulses. On RM with clear breath sounds. [...] the last 72 hours. CBC: Recent Labs 10/23/23171410/24/233 10/25/23 0409 10/26/23 0504 WBC 31.0* 28.7* [...] if HR remains stable Medications -- Hold [employer] norvasc, HCTZ Pulm: Incentive spirometry, and ambulate [...] H/H 9.9/29.8 reflecting 3% drop from baseline. [id number] PRBC on 10/23. H/H is up , Platelets up trending. Plan: Trending labs with repeat CBC in 48 hours Drains/Wires: removed Lines: D/c CVL Pain Control: Continue oral pain medication, IV narcotics for breakthrough pain, and scheduled tylenol. 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 Body mass index is 23.74 [...] oriented x3 Data Review: BMP: Recent Labs 10/22/23181310/23/237 10/23/23171410/24/23 0453 10/25/23 0409 NA 136 141 135* [...] of 1.14 mg/dL (H)). LFTs: Recent Labs 10/22/23181310/23/23406 ALKPHOS 70 73 ALT 10 16 AST 21 46* BILITOTAL 0.4 0.5 ALBUMIN 3.8 4.0 CBC: Recent Labs 10/22/23181310/23/2340610/23/23171410/24/23 0453 10/25/23 0409 WBC 17.3* 26.2* 31.0* 28.7* 24.8* HGB 10.1* 10.7* 9.5* 8.7* 10.5* HCT 31.0* 31.7* 29.0* 26.6* 31.3* PLT 160 183 173 148 164 MCV 90.9 90.8 93.5 92.0 89.9 Coagulation: Recent Labs 10/22/231813 PT 16.5* INR 1.3* APTT 38.5* Active [...] BID. Start olmesartan 10mg QD (lower than [employer] dose). 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 Body mass index is 23.74 [...] Oxygen Therapy O2 Device: room air (10/24/23 0700) Oxygen Therapy Flow (L/min): 2 (10/23/23 0500) Weight: Weight: 60.8 kg (134 lb) (10/19/23 1007) Waveform: Square (10/22/232018) Vt Set (mL): 500 mL (10/22/232018) Set Rate (breaths/min): 12 bpm (10/22/232018) FIO2%: 30 (10/23/23 0123) Peak Flow (L/min): 38 L/min (10/22/232018) Pressure Support (cmH20): 5 cmH20 (10/23/23 0123) PEEP (cmH20): 5 cmH20 (10/23/23 0123) Hemodynamics: CI Cardiac Index: 3 L/min/m2 (10/23/23 0800) PAP CVP CVP: 11 mmHg (10/24/23 06) Drips: Levo RETIRED Dose (mcg/min): 0 mcg/min (10/22/232157) Insulin Dose (units/hr): 0 Units/hr (10/23/23 08) Nipride Amiodarone I&O: Intake/Output Summary (Last 24 hours) at 10/24/2023637 Last data filed at 10/24/2023 06 Gross per 24 hour Intake 2077.53 ml [...] 10/22/23 0101 10/22/23 1814 10/23/23 0407 10/23/23 1715 10/24/23 0453 NA 136 136 136 141 135* [...] of 1.48 mg/dL (H)). LFTs: Recent Labs 10/22/23181310/23/23 0407 ALKPHOS 70 73 ALT 10 16 AST 21 46* BILITOTAL 0.4 0.5 ALBUMIN 3.8 4.0 CBC: Recent Labs 10/21/23 0646 10/22/23 0101 10/22/23 1814 10/23/23 0407 10/23/23 1715 10/24/23 0453 WBC 8.9 11.1* 17.3* 26.2* 31.0* 28.7* HGB 9.9* 9.7* 10.1* 10.7* 9.5* 8.7* HCT 31.1* 29.8* 31.0* 31.7* 29.0* 26.6* PLT 231 238 160 183 173 148 MCV 92.6 92.0 90.9 90.8 93.5 92.0 Coagulation: Recent Labs 10/21/23 0646 10/21/23 1505 10/21/23 2044 10/22/23 1814 PT -- -- -- 16.5* INR -- [...] Weaned off nicardipine yesterday morning. Started on [employer] BP meds. Patient became more hypotensive and bradycardic so they were stopped and she was started on dobutamine. Patient went into A.fib in the 120s Metop IV 5mg x 1 given and 2.5 x 1 given. Rate controlled in the 90s. Medications -- ContinueAmiodarone 200 mg TID for afib prophylaxis, aspirin 325mg, lipitor 80mg daily, Start eliquis today. 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 Body mass index is 23.74 [...] in ICU until hemodynamically stable Discharge Disposition: ROMINA Schaefer PA-C, 10/24/2023 6:38 AM * Mouna [...] UOP Call Christin Triplett if assistance needed ([phone]) * Kristin Dior RN - 10/23/2023 7:04 PM CDT 0800- Dr. Ferrell at bedside and noted ST elevation on monitor. Patient having incisional CP 8/10 and back pain. Verbal orders received to give patient 5mg IV lopressor as well. 0830- EKG handed to SUZY Schaefer for review. Notified that patients back pain [...] 40s, and continued low urine output. notified BETHANY Schaefer. Orders received to hold metoprolol and give 250 albumin at this time. 1544- page out to SUZY Schaefer to discuss low HR and low UO 1629- page out to SUZY Schaefer to discuss low HR and low UO 1702- called dr. Ferrell to discuss ST elevation (EKG obtained), low HR and minimal UO. Orders received for ABG, BMP, CBC, and CVP. 1845- Dr. Ferrell at bedside, CBC, BMP, MG, ABG and CVP discussed. Dr. Ferrell looked at both EKGs for patient. Ordered to give 250 of albumin and call with an update. Notified shift supervisor film processing RN to callDr. Ferrell after albumin is done. * Melanie Carmona RD - 10/23/2023 5:07 PM CDT Images from the original note were not included. CLINICAL DIETITIAN PROGRESS NOTE [facility] Nutrition Risk Screen: Low Riki S/P opCABG x 3 with WESLEY to LAD, SVG to OM, SVG to RCA harvest, EF 65% Food and Nutrition Related History: Pt admits she was eating okay [employer] (eating well prior to surgeryin-house as well). [...] 1007) Body mass index is 23.74 kg/m??. [place] body weight: 52.4 kg (115 lb 8.3 [...] minutes Melanie Brown RD LD Contact via [employer] Work cell #: [phone] Office #: [phone] * Tana Schaefer PA-C - 10/23/2023 8:23 [...] kg/m?? Oxygen Therapy O2 Device: nasal cannula (10/23/23499) Oxygen Therapy Flow (L/min): 2 (10/23/23 0500) Weight: Weight: 60.8 kg (134 lb) (10/19/231006) Waveform: Square (10/22/232018) Vt Set (mL): 500 mL (10/22/232018) Set Rate (breaths/min): 12 bpm (10/22/232018) FIO2%: 30 (10/23/23122) Peak Flow (L/min): 38 L/min (10/22/232018) Pressure Support (cmH20): 5 cmH20 (10/23/23122) PEEP (cmH20): 5 cmH20 (10/23/23122) Hemodynamics: CI Cardiac Index: 3 L/min/m2 (10/23/23799) PAP CVP CVP: 10 mmHg (10/23/23799) Drips: Levo RETIRED Dose (mcg/min): 0 mcg/min (10/22/232157) Insulin Dose (units/hr): 2 Units/hr (10/23/23200) Nipride Amiodarone I&O: Intake/Output Summary (Last 24 hours) at 10/23/2023 0823 Last data filed at 10/23/2023 0700 Gross [...] 0646 10/22/23 0101 10/22/23 1814 10/23/23 0407 NA 136 136 136 141 K 3.6 3.4* 4.0 3.5 CL 99 99 103 106 CO2 24 26 20* 20* BUN 15 20 17 23 CREAT 0.94 1.32* 1.01* 1.04* GLUCOSE 107* 123* 162* 153* MG -- -- 1.9 -- estimated creatinine clearance is 36.3 mL/min (A) (by C-G formula based on SCr of 1.04 mg/dL (H)). LFTs: Recent Labs 10/22/23 1814 10/23/23 0407 ALKPHOS 70 73 ALT 10 16 AST 21 46* BILITOTAL 0.4 0.5 ALBUMIN 3.8 4.0 CBC: Recent Labs 10/21/23 0646 10/22/23 0101 10/22/23 1814 10/23/23 0407 WBC 8.9 11.1* 17.3* 26.2* HGB [...] for afib prophylaxis, aspirin 325mg, lipitor 80mg daily,[employer]ER HCTZ 25mg daily, [employer] olmesartan 40mg daily, metoprolol 25mg BID Medications [...] sliding scale Heme: H/o anemia. Pre-op H/H 10/31, Today's H/H 10.7/31.7 reflecting a 0% drop from baseline. None.H/H is Stable, Platelets stable. Plan: Trending labs with repeat CBC tomorrow Drains/Wires: D/C mediastinal drains without complications and continue sammy until decrease in drainage, no pacing wires Lines: D/C [place], D/C Art line, and Keep PIV and CVL Pain Control: Continue oral pain medication, IV narcotics for breakthrough pain, and scheduled tylenol. 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 [...] 67 68 (!) 59 (!) 56 Resp: Temp: 99.5 ??F (37.5 ??C) 99.3 ??F [...] with current plan. Case discussed with Dr. Heart , and in agreement with the above [...] setting of paroxysmal atrial fibrillation and a [id number] 2 score of 4. Postoperative care will be directed by Dr. Ferrell and the CTS service. Cardiology service will follow at a distance. Please call if further cardiac issues arise. Karen Heart MD, [facility] Inpatient Cardiology Service [facility] * Mray Bunch RCP - 10/23/2023 2:24 AM CDT [...] 300s - ABG shows good ventilation but [id number] with BE -5 - order placed for extubation - 1 amp bicarb Call Christin Triplett if assistance needed ([phone]) * Olga Sandhu DO - 10/22/2023 9:00 AM CDT [facility] Adult Hospitalist Progress Note Admit Date: 10/19/2023 [...] and possible LA appendage clip today; continue [employer] ASA and started on atorvastatin # pAFib: s/p PVI/CTI 08/2021; currently appears to be in NSR; holding [employer] eliquis as currently and was on a heparin gtt for CABG # HTN # Chronic HFpEF: last EF 09/2023 60-65%; continue HCTZ 25mg qd, amlodipine 10mg qd; noted PTAolmesartan 40mg held by CTS for upcoming procedure # PAD # Carotid artery stenosis: continue [employer] ASA; noted recent carotid artery US 10/16 showing L bifurcation-ICA moderate plaque and R bifurcation-ICA mild plaque; follows outpatient with vascular surgery; started on statin # NSCLC s/p RUL resection 08/2020: noted # Myasthenia gravis: in the past had sx including LE weakness and fatigue; continue [employer] pyridostigmine (per pt she normally takes BID not TID given some stomach upset which is okay with her neurologist); follows outpatient with neurology # Hypokalemia: will replete and repeat labs in AM # Leukocytosis: mildly elevated WBC 11s that resolved and slightly bumped up this AM; likely reactive as pt does not appear to have any overt signs of infection # GERD: continue GAMBLING BROKER PPI; added on pepcid and also bentyl [...] record, Referring and communication with other health specialist wound care (not separately reported), Independently interpreting results and communicating results to the patient/family/caregiver (not separately reported), Care coordination (not separately reported), and Excluding time spent performing separately billed procedures and/or services. Olga Sandhu, DO Please contact me via [employer] Secure Chat from 7am-7pm After hours please place E-ticket to [facility]ist * Monroe Howell MD - 10/21/2023 5:05 [...] air from radial band on arrival from laboratory miller as per protocol, max band time 45 minutes if no bleeding. 2. Medical therapy for CAD, CTS consult and admission for CABG Echocardiogram 09/21/2023 STUDY CONCLUSIONS: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 call [phone] * Care Plan - Chloé Barrera RN - 10/30/2023 5:47 AM CDT SPCU Shift Note Significant events No acute events overnight. Pain managed per MAR. Turning independently and ambulating up to bathroom with stand by assist. Disposition Transfer or discharge plan: discharge to rehab * Care Plan - Alma Delia Aviles, Fiscal Clerk - 10/29/2023 1:32 PM CDT Problem: Physical [...] be based on patient's progress in therapy. GAMBLING BROKER conferred with PT, Salo Arshad, regarding update of recommendations for discharge to post acute care. Equipment to be issued at discharge: DME: To be determined (10/29/23 3208) S: Patient agreeable to therapy. Patient reported [...] not performed due to SOB and fatigue [facility] AM-PAC Basic Mobility How much help from [...] light, phone and tray table within reach. Karma GRIFFITHS aware A: Response to treatment: Progressing towards goals, [...] care for updates on goals. Zone #: [id number] * Care Plan - Lo Deras Occupational [...] Time: 1125 Taken 10/29/2023 0641 by Kait Fajardo, RN Location: abdomen region back Taken 10/27/2023 0750 by Natalie Fields Assistive Devices Used: Gait belt Taken 10/23/2023 1112 by Natalie Sorensen, Occupational Therapist Therapy Plan of Care: 3-5x/wk [...] to help improve pts strength, ROM and Rincon with self care. FUNCTIONAL ACTIVITIES Grooming: setup [...] forward head and neck posture at ~ care home berny- pt required one rest break during navigation in sigala- with increased respirations several times into 30s- encouraged pursed lip breathing exercises, min A stand pivot at chair and min A to sit at chair- pt demos increased respirations after all mobility [facility] AM-PAC Daily Activity How much help from [...] care for updates on goals. Zone #: [phone] On weekends--please call [phone] * Care Plan - Kait Fajardo RN [...] board, note pad and pen, etc) 2. LEGAL LIBRARIAN referral if applicable 3. Provide education in patient's primary language. Obtain management retail intern and appropriate written materials. If patient refuses management retail intern services have refusal waiver signed 4. Patients [...] and her son. He statesthat he works carpet tile layer and is not able to be home [...] Maryann Deutsch RN, B[place] [phone] Problem: Discharge Planning Goal: Identify discharge needs upon admission and through discharge Description: Outcome: Progressing * Therapy Treatment - Natalie Sorensen, Occupational Therapist - 10/26/2023 1:59 PM CDT 10/26/23: attempted to see pt for OT treatment. Pt reports recently using BSC and fatigued. Pt request to rest and that therapy come back. Will continue to follow and re-attempt later this date if time allows. Thank you, [id number] * Care Plan - Lori Ghotra Physical Therapist - 10/26/2023 10:00 AM CDT [...] navigate discharge environment. Outcome: Progressing Flowsheets (Taken 10/26/2023999) Assistive Devices Screening: Gait belt Assistive Devices Used: Gait belt Present Activity: ambulating up in room up to chair Physical Assist/Nonphysical Assist: w/ 1 person assist Recommend: Home with assistance;Home with 24-hour supervision;Home with home health PT (10/26/23999) Recommendations were made on today's assessment. Additional recommendations will be based on patient's progress in therapy. Equipment to be issued at discharge: DME: To be determined (10/26/23999) S: Patient agreeable to therapy. Notes 09/25 pain as well as minor lightheadedness, improved [...] heel strike, decreased carrie, forward flexed posture [facility]-PAC Basic Mobility How much help from another [...] care for updates on goals. Zone #: [phone] Lori Ghotra, PT, DPT * Care Plan [...] available to assist if needed? Yes - Name/Relation:sonRylan Comments: Patient lives alone, but sonRylan, will be staying with her at discharge. Patient does not have a WWR. [facility] has been ordered. Patient lives in [place], outside of the [facility] service area. Referrals sent to [facility]. Patient Discharge Planning Goal: home Patient will [...] RYLAN MARTINEZ Mobile Relation: Son Preferred language: Argentine Supervisor Advice needed? No Secondary Emergency Contact: ASHANTI SEAMAN Mobile Relation: Granddaughter Preferred language: Argentine Supervisor Advice needed? No Prescription coverage: yes Preferred Pharmacy verified: [facility][id number] - [place], [place] - [address] [facility] MAIL DELIVERY - [facility] [address] Insurance coverage verified: Payor: HUMANA [...] assist asneeded. Yancy Orantes RN Care Manager [phone] cell [phone] office * Care Plan - Jermain Carlisle RN - 10/25/2023 11:42 AM CDT Discharge teaching started with patient. Discussed restrictions after surgery. Discussed follow-up appointments. Patient is up in the chair. Will have floor staff obtain IS for patient. [facility] has been ordered for patient. * Care Plan - Enrico Mendoza RN - 10/25/2023 8:50 AM CDT Cardiac Rehab Phase 1: The follow topics were addressed and [facility] packet/folder provided; [] [place] [] CAD [] Heart Disease/Lifestyle Modification [] CHF [x] CABG [] Valve SX Cardiac Rehab Phase 1-Visited with Pt at this time. Discussed with Pt coronary artery anatomy and physiology related to angina and coronary artery bypass grafting (CABG). [facility] Heart disease/lifestyle modification literature packet given and reviewed with patient. Signs and symptoms of angina discussed and the importance of routine following up with transactional attorney reviewed. Risk factors for heart disease discussed. The importance of a diet of low sodium, low fat, low cholesterol, and limit caffeine reviewed with Pt. The benefits of routine exercise and Outpatient cardiac rehab program at [facility] discussed. Outpatient cardiac rehab resource site location sheet reviewed with Pt. Pt verbalized understanding. The importance of recognizing stress and the healthy way to manage stress discussed. Use of deep breathe cough encouraged. Pt has PT/OT ordered. [x]Discussed OP Cardiac Rehab Program of monitored exercise and education. Outpatient Cardiac Rehab referral was sent for Brandon [phone].. Additional literature given to Pt-. Bal- Manage Cholesterol the Basics, PCNA - Get Tough on Angina [facility] -Managing the Stresses of Daily Life, [facility]-Eating with your Heart in Mind, [facility]-Exercise for Life, [facility] Handout - Taking Care of Your Heart at Home, AHA - Handout What is Coronary Bypass Surgery , How Can I Lower High Cholesterol?, Your Heart and How it works,How Can I Cook Healthfully?, How Do I follow and Healthy diet?, [facility] Cardiac Rehabilitation brochure given and location resource guide for Outpatient cardiac rehab facilities given. * Care Plan - Lori Ghotra Physical Therapist - 10/25/2023 8:10 AM CDT Problem: Physical Mobility, Impaired Goal: Mobility goal: Improve transfer ability by discharge Description: Patient will transfer supine to sit and bed to/from chair with SBA Outcome: Progressing Flowsheets (Taken 10/25/2023 0810) Assistive Devices Screening: Gait belt Assistive Devices [...] Stairs: pt does not perform at baseline [facility] Basic Mobility How much help from [...] care for updates on goals. Zone #: [phone] Lori Ghotra, PT, DPT * Care Plan [...] be issued at DC: To be determined (10/24/23858) S: Patient agreeable to therapy. Patient reports 3-6/10 pain. Pain intervention: Unneccessary movement avoided Response to pain intervention: Verbalized relief, Agrees to continue Living Situation/Functional Level GAMBLING BROKER: Pt lives in 2nd floor [facility] with elevator access, does not need to negotiate stairs to reach elevator. Pt lives alone but states her son will be staying with her at d/c but works throughout the day. Pt is typically IND with ADLs/iADLs GAMBLING BROKER. Ambulated HH and community distances without device, [...] standing good, standing dynamic fair while transferring [facility] AM-PAC Basic Mobility How much help from [...] section of the medical chart. Zone #: [phone] Lori Ghotra PT, DPT On weekends--please call [phone] * Therapy Evaluation - Natalie Sorensen, Occupational [...] supervision;Home with assistance;Home with Home Health OT (10/23/231111) Recommendations were made on today's assessment. Additional recommendations will be based on patient's progress in therapy. Equipment needed at DC: Shower Chair with a back (10/23/231111) S: Patient agreeable to therapy. Patient reports 8/10 pain. Pain intervention: Unneccessary movement avoided, Repositioned for comfort, RN aware Response to pain intervention: Appeared content Living Situation/Functional Level GAMBLING BROKER: pt resides with son in 2nd floor [...] with frontal assistance and hugging heart pillow. [facility]-PAC Daily Activity How much help from another [...] section of the medical chart. Zone #: [phone] On weekends--please call [phone] * Therapy Evaluation - Brandee Cole, Physical Therapist - 10/23/2023 11:10 AM CDT PT orders received. Attempted to see pt for PT eval twice today. At 1002 pt having lines pulled andwill be BR for 1 hour. At 1110 pt working with OT. Will continue to follow. [id number] * Care Plan - Maryann Scott RN - 10/23/2023 8:58 AM CDT Cardiac Rehab: Recieved order, reviewed Epic notes, s/p CABG yesterday, will follow. * Care Plan - Chloé Burks RN - 10/22/2023 6:22 PM CDT Images from the original note were not included. Patient arrived to CVICU room 4090 [facility] bed from [facility]. Patient accompanied by: Dr. Stroud and student anesthesia and Olive PA-C. Patient arrived being bagged by anesthesia and [...] assessment completed as per DOC Flow sheet. [facility] Adult IV Flush Protocol [facility] Approved by: [facility] - Medical Executive Committee Approval Date: 11/02/2022 [...] from the original note were not included. [facility] RT Ventilator Management and Liberation for Post-Op CABG/Valve Replacement Protocol [facility] Approved by: [facility] - Medical Executive Committee Approval Date: 11/30/2022 ORDERS ARE ENTERED ???PER PROTOCOL?? Enter the protocol in the patient's electronic health record using smartphrase: .ctsurgeryextubateprotocol Applies to patients admitted to the Cardiovascular Intensive Care Unit (CVICU) post-op CABG and/or Valve Replacement procedure on a mechanical ventilator. Contact credentialed provider to obtain the Liberation Weaning order ([id number]) At any point during this process the credentialed provider may override the exclusion or evaluationcriteria and move forward with the protocol or request an assessment for extubation. Upon patient arrival to the CVICU, the RT animal nursery worker will place a sign on the ventilator with an extubation goal of 5 hours from CVICU admission. If the patient continues to fail after 8 hours, the patient will be placed on the [facility] Adult ICU Ventilator Liberation Protocol Any team cdl driver may stop Liberation Protocol if patient safety concerns arise. INITITAL VENTILATOR MANAGEMENT 1. Order initial Mechanical Ventilation settings using order (RT25) upon arrival from the OR, usingthe settings below as a guideline: AC Rate 12/min FiO2 of 0.6 Peep of 5 cm H2O Tidal Volume of 8-10 cc/kg [place] Body Weight 2. Draw Arterial Blood Gas [...] Admit: @ 1815 Received [facility]/ from IVC G023 this Evening via wheelchair Report obtained from Keya GRIFFITHS, verified baseline PTT sent to lab Sinus rhythm on the monitor rate = 70's Pulse oximetry on room air sats @ high 90% Updated RN/AUTOMATION APPLICATION ENGINEER zone phones on white board Dr. Ferrell [...] (37.1 ??C) SpO2: 97% Primary RN: Allison BAE, RN Zone Phone #: [phone] Medical Progressive Care Unit 5th Floor [facility] 10/19/23 * Treatment Plan - Bonita Reagan, PHARMACIST - 10/19/2023 11:56 AM CDT Images from the original note were not included. Zee Martinez is a 78 y.o.female presenting with atrial fibrillation/post laboratory miller as an indication for anticoagulation. Dosing regimen: Low Monitoring Lab: aPTT Changes to the protocol: no [facility] Adult Heparin Protocol [facility] Approved by: [facility] - Medical Executive Committee Approval Date: 02/01/2023 ORDERS ARE ENTERED ???PER PROTOCOL?? Enter the protocol in the patient???s electronic health record using mobME Solutionse: .rxheparinprotocol Nursing Orders: Heparin must be hung [...] Minumum every 3 days: CBC without differential ([id number]) drawn at minimum of every 3 days [...] IV push ONE TIME (round to the [id number] units) followed immediately by heparin (heparin 25,000 [...] IV push ONE TIME (round to the [id number] units) followed immediately by heparin (heparin 25,000 [...] 1,000 units per hour. Pharmacist to provide thenurse with a calculated dose in units per kg per hour if the calculated dose exceeds the maximum of1,000 units per hour. For example, if the [...] st Contact Info) Description 2024 11:00 AM FLOTATION TANK OPERATOR Appointment [facility] [address] [place] [phone] 07/21/2024 9:45 AM FLOTATION TANK OPERATOR Appointment [facility] [employer] [address] [place] [phone] Sarbjit Brooks MD [address] [facility] [address] [place] [address] 07/21/2024 9:53 AM FLOTATION TANK OPERATOR Hospital Encounter [facility] [employer] [address] [place] [phone] Sarbjit Brooks MD [address] [facility] [address] [place] [phone] Paroxysmal A-fib 07/21/2024 9:53 AM FLOTATION TANK OPERATOR - 07/21/2024 11:46 AM FLOTATION TANK OPERATOR Surgery [facility] [employer] [address] [place] [phone] Sarbjit Brooks MD [address] [facility] [address] [place] [address] Left atrial appendage closure percutaneous 07/28/2024 8:30 AM FLOTATION TANK OPERATOR Office Visit [facility] Oncology and Hematology - [place] [address] [place] [phone] Nahid Hickman MD [address] [address] 09/09/2024 1:00 PM CDT Office Visit [facility] Heart and Vascular At [facility] [address] [facility] [address] [place] [phone] Sarbjit Brooks MD [address] [facility] [address] [place] [address] 12/16/2024 11:00 AM CDT Office Visit [facility] AT [facility] [address] [place] [address] Sammy Bowling DNP [address] [place] [address] 02/05/2025 10:45 AM CDT Telephone Check Up [facility] Heart and Vascular At [facility] [address] [facility] [address] [place] [address] 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, CAT [address] [place] [address] Scheduled Referrals Name Type Priority Associated Diagnoses [...] AM CDT PREPARE RED BLOOD CELLS Routine 10/24/19 8:54 AM CDT POC GLUCOSE Routine 10/24/2023 8:11 AM CDT EKG 12-LEAD Routine 10/24/2023 7:07 AM CDT BLOOD GAS VENOUS Routine 10/24/2023 4:56 AM CDT DIFFERENTIAL, MANUAL Routine 10/24/2023 4:53 [...] NEEDLE PLACEMENT Routine 10/22/2023 12:58 PM CDT PREPARE RED BLOOD CELLS Routine 10/22/19 24 8:41 AM CDT PREPARE RED BLOOD CELLS Routine 10/22/19 24 8:41 AM CDT PREPARE RED BLOOD CELLS Routine 10/22/19 24 8:41 AM CDT PREPARE RED BLOOD CELLS Routine 10/22/19 24 8:41 AM CDT PREPARE RED BLOOD CELLS Routine 05/06/20 24 8:41 AM CDT PREPARE RED BLOOD CELLS Routine 10/22/19 8:41 AM CDT CVOR TRANSESOPHAGEAL STUDY Routine 10/22/2023 8:40 AM CDT POC GLUCOSE Routine 10/22/2023 6:24 AM CDT CBC WITHOUT DIFFERENTIAL Routine 10/22/2023 1:01 AM CDT BASIC METABOLIC PANEL Routine 10/22/2023 1:01 AM CDT PTT Timed Study 10/21/2023 8:44 PM CDT URINALYSIS W/REFLEX MICROSCOPIC Routine 10/21/2023 8:04 PM CDT PTT Timed Study 10/21/2023 3:05 PM CDT PREPARE RED BLOOD CELLS Routine 10/21/19 10:22 AM CDT PREPARE RED BLOOD CELLS Routine 10/21/19 10:22 AM CDT PTT Timed Study 10/21/2023 [...] (COVID-19) PCR DETECTION (10/30/2023 1:37 PM CDT) [facility] COVID-19 PCR NOT DETECTED Not Detected 10/30/19 24 2:37 PM [facility] Upper Respiratory ENTIRE NASOPHARYNX / Unknown Collection / Unknown 10/30/2023 1:37 PM CDT 10/30/2023 1:54 PM CDT [facility] - [facility] - 10/30/2023 2:37 PM CDT This test [...] out infection with the 2019-Novel Coronavirus. [facility] MICROBIOLOGY - [facility] ORDERABLES [facility]# [id number] [address] [facility] [address] * (ABNORMAL) MANUAL DIFFERENTIAL (10/29/2023 1:54 AM CDT) SEGMENTED NEUTROPHILS 47 % 10/29/2023 9:26 AM [facility] LYMPHOCYTES RELATIVE 17(L) 43 - 53 % 10/29/2023 9:26 AM [facility] MONOCYTES RELATIVE 35 % 10/29/2023 9:26 AM [facility] EOSINOPHILS RELATIVE 1 % 10/29/2023 9:26 AM [facility] NEUTROPHILS ABSOLUTE COUNT 6.82 1.90 - 7.00 K/uL 10/29/2023 9:26 AM [facility] Coherent Path [facility] LYMPHOCYTES ABSOLUTE 2.47 0.70 - 4.50 K/uL 10/29/2023 9:26 AM T [facility] [employer] Path [facility] MONOCYTES ABSOLUTE 5.08(H) 0.10 - 1.30 K/uL 10/29/2023 9:26 AM [facility] [employer] [facility] EOSINOPHILS ABSOLUTE 0.15 0.00 - 0.70 K/uL 10/29/2023 9:26 AM [facility] LABORATORY SERVICES - [facility] TOTAL CELLS COUNTED IN DIFF 100 10/29/2023 9:26 AM T [facility] LABORATORY SERVICES - . [facility] PLATELET EST. Consistent w Count 10/29/2023 9:26 AM [facility] LABORATORY SERVICES - . [facility] ANISOCYTOSIS 1+ /hpf 10/29/2023 9:26 AM [facility] LABORATORY SERVICES - . [facility] SMUDGE CELLS Present /100 10/29/2023 9:26 AM [facility] LABORATORY SERVICES - [facility] Blood Venipuncture / Unknown 10/29/2023 1:54 AM CDT 10/29/2023 2:05 AM CDT [facility] LABORATORY SERVICES - [facility] - 10/29/2023 9:26 AM CDT Manual differential performed on albumin slide. Ashley SIMS HEMATOLOGY ORDERA BLES COM [facility] LABORATORY SERVICES - [facility] CLIA# [id number] [address] [place] [address] * (ABNORMAL) BASIC METABOLIC PANEL (10/29/2023 1:54 AM CDT) SODIUM 136 136 - 145 mmol/L 10/29/2023 2:47 AM [facility] LABORATORY SERVICES - [facility] POTASSIUM 4.2 3.5 - 5.0 mmol/L 10/29/2023 2:47 AM [facility] LABORATORY SERVICES - [facility] CHLORIDE 102 98 - 107 mmol/L 10/29/2023 2:47 AM T [facility] LABORATORY SERVICES - . [facility] CO2 24 22 - 29 mmol/L 10/29/2023 2:47 AM T [facility] LABORATORY SERVICES - . [facility] CALCIUM 8.5(L) 8.6 - 10.2 mg/dL 10/29/2023 2:47 AM [facility] LABORATORY SERVICES - . [facility] BUN 22 8 - 23 mg/dL 10/29/2023 2:47 AM [facility] LABORATORY SERVICES - . [facility] CREATININE 1.03(H) 0.51 - 0.95 mg/dL 10/29/2023 2:47 AM [facility] LABORATORY SERVICES - . [facility] Comment:The GFR result is no t clinically significant on patients <18 or >70 years of age. GLUCOSE 117(H) 74 - 99 mg/dL 10/29/2023 2:47 AM [facility] GFR 55 mL/min/1.7 3 sq meter 10/29/2023 2:47 AM [facility] LABORATORY [facility] Comment:eGFR calculated with 2020 CKD-EPI equation. Vegetarian diet, extremely high or low muscle mass, and may affect results. Cystatin C with Glomerular Filtration Rate is a suitable alternative for these patients. ANION GAP 10 8 - 16 mmol/L 10/29/2023 2:47 AM [facility] LABORATORY [facility] Blood Venipuncture / Unknown 10/29/2023 1:54 AM CDT 10/29/2023 2:04 AM CDT Ashley SIMS CHEMISTRY ORDERAB LES [facility] [id number] [address] [facility] [place] [address] * (ABNORMAL) CBC WITH DIFFERENTIAL (10/29/2023 1:54 AM CDT) WBC 14.5(H) 4.0 - 9.8 K/uL 10/29/2023 7:06 AM [facility] LABORATORY [facility] RBC 3.15(L) 3.90 - 4.90 M/uL 10/29/2023 7:06 AM [facility] LABORATORY [facility] HEMOGLOBIN 9.4(L) 11.8 - 14.8 g/dL 10/29/2023 7:06 AM [facility] LABORATORY [facility] HEMATOCRIT 28.6(L) 35.5 - 44.0 % 10/29/2023 7:06 AM [facility] LABORATORY [facility] MCV 90.8 82.0 - 99.0 fL 10/29/2023 7:06 AM [facility] LABORATORY [facility] MCH 29.8 27.2 - 32.6 pg 10/29/2023 7:06 AM CDT [employer] LABORATORY SERVICES - [facility] MCHC 32.9 31.5 - 35.5 g/dL 10/29/2023 7:06 AM CDT [employer] LABORATORY SERVICES - [facility] RDW 14.8(H) 11.5 - 14.5 % 10/29/2023 7:06 AM CDT [employer] LABORATORY SERVICES - [facility] RDW-STDEV 49.2(H) 37.1 - 48.7 fL 10/29/2023 7:06 AM CDT [employer] [facility] LABORATORY SERVICES - [facility] PLATELETS 245 140 - 350 K/uL 10/29/2023 7:06 AM T [employer] LABORATORY SERVICES - [facility] MPV 10.6 9.3 - 12.4 fL 10/29/2023 7:06 AM CDT [employer] LABORATORY SERVICES - [facility] Blood Venipuncture / Unknown 10/29/2023 1:54 AM CDT 10/29/2023 2:05 AM CDT Ashley SIMS HEMATOLOGY ORDERA BLES [facility] [employer] [facility] CLIA# [id number] [address] [place] [address] * (ABNORMAL) POC GLUCOSE (10/28/2023 10:37 PM CDT) GLUCOSE POC 126(H) 74 - 99 mg/dL 10/28/2023 10:37 PM CDT [employer] LABORATORY SERVICES - [facility] SPECIMEN SOURCE, GLUCOSE POC Whole Blood 10/28/2023 10:37 PM CDT [employer] LABORATORY SERVICES - [facility] Blood, whole 10/28/2023 10:3 7 PM CDT 10/28/2023 10:45 PM CDT Edinson Ferrell MD POINT OF CARE TESTIN G [facility] [employer] [facility] CLIA# [id number] [address] [place] [address] * (ABNORMAL) POC GLUCOSE (10/28/2023 12:19 PM CDT) GLUCOSE POC 166(H) 74 - 99 mg/dL 10/28/2023 12:19 PM CDT [facility] LABORATORY SERVICES - [facility] SPECIMEN SOURCE, GLUCOSE POC Whole Blood 10/28/2023 12:19 PM CDT [facility] LABORATORY SERVICES - [facility] Blood, whole 10/28/2023 12:1 9 PM CDT 10/28/2023 12:34 PM CDT Edinson Ferrell MD POINT OF CARE TESTCHRISTY Nguyen [facility] LABORATORY [facility] CLIA# [id number] [address] [place] [address] * (ABNORMAL) POC GLUCOSE (10/28/2023 8:36 AM CDT) GLUCOSE POC 123(H) 74 - 99 mg/dL 10/28/2023 8:36 AM CDT [facility] LABORATORY [facility] SPECIMEN SOURCE, GLUCOSE POC Whole Blood 10/28/2023 8:36 AM CDT [facility] LABORATORY [facility] Blood, whole 10/28/2023 8:36 AM CDT 10/28/2023 8:45 AM CDT Edinson Ferrell MD POINT OF CARE TESTCHRISTY Nguyen [facility] [employer] [facility] CLIA# [id number] [address] [place] [address] * (ABNORMAL) POC GLUCOSE (10/27/2023 6:00 PM CDT) GLUCOSE POC 169(H) 74 - 99 mg/dL 10/27/2023 6:00 PM CDT [facility] LABORATORY SERVICES - [facility] SPECIMEN SOURCE, GLUCOSE POC Whole Blood 10/27/2023 6:00 PM CDT [facility] LABORATORY SERVICES [facility] Blood, whole 10/27/2023 6:00 PM CDT 10/27/2023 6:08 PM CDT Edinson Ferrell MD POINT OF CARE TESTIN G [facility] LABORATORY [facility] CLIA# [id number] [address] [place] [address] * (ABNORMAL) POC GLUCOSE (10/27/2023 1:20 PM CDT) GLUCOSE POC 126(H) 74 - 99 mg/dL 10/27/2023 1:20 PM CDT [facility] LABORATORY [facility] SPECIMEN SOURCE, GLUCOSE POC Whole Blood 10/27/2023 1:20 PM CDT [facility] Blood, whole 10/27/2023 1:20 PM CDT 10/27/2023 1:33 PM CDT Edinson Ferrell MD POINT OF CARE TESTIN G Performing Organization Address [facility] Co de Phone Number [facility] [employer] [facility] CLIA# [id number] [address] [place] [address] * (ABNORMAL) POC GLUCOSE (10/27/2023 10:14 AM CDT) GLUCOSE POC 188(H) 74 - 99 mg/dL 10/27/2023 10:14 AM CDT [facility] LABORATORY [facility] SPECIMEN SOURCE, GLUCOSE POC Whole Blood 10/27/2023 10:14 AM CDT [facility] Blood, whole 10/27/2023 10:1 4 AM CDT 10/27/2023 10:23 AM CDT Edinson Ferrell MD POINT OF CARE TESTIN G [facility] LABORATORY [facility]# [id number] [address] [place] [address] * (ABNORMAL) POC GLUCOSE (10/27/2023 8:06 AM CDT) Pathologist [facility] GLUCOSE POC 134(H) 74 - 99 mg/dL 10/27/2023 8:06 AM CDT [facility] LABORATORY [facility] SPECIMEN SOURCE, GLUCOSE POC Whole Blood 10/27/2023 8:06 AM CDT [facility] LABORATORY SERVICES [facility] Blood, whole 10/27/2023 8:06 AM CDT 10/27/2023 8:19 AM CDT Edinson Ferrell MD POINT OF CARE TESTIN G [facility]# [id number] [address] [place] [address] * (ABNORMAL) POC GLUCOSE (10/26/2023 9:08 PM CDT) [facility] GLUCOSE POC 141(H) 74 - 99 mg/dL 10/26/2023 9:08 PM CDT [facility] LABORATORY [facility] SPECIMEN SOURCE, GLUCOSE POC Whole Blood 10/26/2023 9:08 PM CDT [facility] LABORATORY [facility] COMMENT, GLU POC Notified RN/MD 10/26/2023 9:08 PM CDT [facility] LABORATORY [facility] Blood, whole 10/26/2023 9:08 PM CDT 10/26/2023 9:19 PM CDT Edinson Ferrell MD POINT OF CARE TESTIN G [facility]# [id number] [address] [place] [address] * MAGNESIUM LEVEL (10/26/2023 5:51 PM CDT) [facility] MAGNESIUM 2.4 1.6 - 2.4 mg/dL 10/26/2023 6:33 PM CDT [facility] LABORATORY SERVICES [facility] Blood Venipuncture / Unknown 10/26/2023 5:51 PM CDT 10/26/2023 5:57 PM CDT Ashley SIMS CHEMISTRY ORDERAB LES [facility] LABORATORY SERVICES [facility] CLIA# [id number] [address] [facility] [address] [id number] * (ABNORMAL) BASIC METABOLIC PANEL (10/26/2023 5:51 PM CDT) SODIUM 135(L) 136 - 145 mmol/L 10/26/2023 6:33 PM CDT [facility] LABORATORY [facility] POTASSIUM 4.5 3.5 - 5.0 mmol/L 10/26/2023 6:33 PM T [facility] LABORATORY SERVICES [facility] Comment:Slightly hemolyzed. Result may be falsely elevated. CHLORIDE 101 98 - 107 mmol/L 10/26/2023 6:33 PM CDT [facility] LABORATORY SERVICES [facility] CO2 22 22 - 29 mmol/L 10/26/2023 6:33 PM T [facility] LABORATORY [facility] CALCIUM 8.7 8.6 - 10.2 mg/dL 10/26/2023 6:33 PM CDT [facility] LABORATORY SERVICES [facility] BUN 29(H) 8 - 23 mg/dL 10/26/2023 6:33 PM CDT [facility] LABORATORY SERVICES [facility] CREATININE 0.87 0.51 - 0.95 mg/dL 10/26/2023 6:33 PM CDT [facility] Comment:The GFR result is no t clinically significant on patients <18 or >70 years of age. GLUCOSE 112(H) 74 - 99 mg/dL 10/26/2023 6:33 PM CDT [facility] LABORATORY SERVICES [facility] GFR >60 mL/min/1.7 3 sq meter 10/26/2023 6:33 PM CDT [employer] LABORATORY SERVICES [facility] Comment:eGFR calculated with 2020 CKD-EPI equation. Vegetarian diet, extremely high or low muscle mass, and may affect results. Cystatin C with Glomerular Filtration Rate is a suitable alternative for these patients. ANION GAP 12 8 - 16 mmol/L 10/26/2023 6:33 PM CDT [facility] LABORATORY SERVICES [facility] Blood Venipuncture / Unknown 10/26/2023 5:51 PM CDT 10/26/2023 5:57 PM CDT Ashley SIMS CHEMISTRY ORDERAB LES Performing Organization Address [facility]/ZIP Co de Phone Number [facility] LABORATORY [facility]# [id number] [address] [place] [address] * (ABNORMAL) POC GLUCOSE (10/26/2023 5:50 PM CDT) GLUCOSE POC 111(H) 74 - 99 mg/dL 10/26/2023 5:50 PM CDT [facility] LABORATORY [facility] SPECIMEN SOURCE, GLUCOSE POC Whole Blood 10/26/2023 5:50 PM CDT [facility] LABORATORY [facility] Blood, whole 10/26/2023 5:50 PM CDT 10/26/2023 6:35 PM CDT Edinson Ferrell MD POINT OF CARE TESTIN G Performing Organization Address [facility]/ZIP Co de Phone Number [facility] LABORATORY [facility]# [id number] [address] [place] [address] * (ABNORMAL) POC GLUCOSE (10/26/2023 12:09 PM CDT) GLUCOSE POC 169(H) 74 - 99 mg/dL 10/26/2023 12:09 PM CDT [facility] LABORATORY [facility] SPECIMEN SOURCE, GLUCOSE POC Whole Blood 10/26/2023 12:09 PM CDT [facility] LABORATORY SERVICES - [facility] Blood, whole 10/26/2023 12:0 9 PM CDT 10/26/2023 12:25 PM CDT Edinson Ferrell MD POINT OF CARE TESTIN G [facility] LABORATORY [facility] CLIA# [id number] [address] [place] [address] * (ABNORMAL) POC GLUCOSE (10/26/2023 7:56 AM CDT) Pathologist [facility] GLUCOSE POC 102(H) 74 - 99 mg/dL 10/26/2023 7:56 AM CDT [employer] LABORATORY SERVICES - [facility] SPECIMEN SOURCE, GLUCOSE POC Whole Blood 10/26/2023 7:56 AM CDT [employer] LABORATORY SERVICES [facility] Blood, whole 10/26/2023 7:56 AM CDT 10/26/2023 8:17 AM CDT Edinson Ferrell MD POINT OF CARE TESTCHRISTY Nguyen [facility] [employer] SERVICES [facility] CLIA# [id number] [address] [place] [address] * (ABNORMAL) MANUAL DIFFERENTIAL (10/26/2023 5:04 AM CDT) [facility] SEGMENTED NEUTROPHILS 74 % 10/26/2023 7:27 AM CDT [employer] LABORATORY SERVICES [facility] LYMPHOCYTES RELATIVE 8(L) 43 - 53 % 10/26/2023 7:27 AM CDT [employer] LABORATORY SERVICES [facility] ATYPICAL LYMPHOCYTES RELATIVE 3 0 - 5 % 10/26/2023 7:27 AM CDT [employer] LABORATORY SERVICES [facility] MONOCYTES RELATIVE 14 % 10/26/2023 7:27 AM CDT [employer] LABORATORY SERVICES [facility] EOSINOPHILS RELATIVE 1 % 10/26/2023 7:27 AM CDT [employer] LABORATORY SERVICES [facility] NEUTROPHILS ABSOLUTE COUNT 11.89(H) 1.90 - 7.00 K/uL 10/26/2023 7:27 AM CDT [employer] LABORATORY SERVICES - [facility] LYMPHOCYTES ABSOLUTE 1.32 0.70 - 4.50 K/uL 10/26/2023 7:27 AM CDT [facility] LABORATORY SERVICES - [facility] MONOCYTES ABSOLUTE 2.20(H) 0.10 - 1.30 K/uL 10/26/2023 7:27 AM CDT [facility] LABORATORY SERVICES - [facility] EOSINOPHILS ABSOLUTE 0.15 0.00 - 0.70 K/uL 10/26/2023 7:27 AM T [facility] LABORATORY SERVICES - [facility] TOTAL CELLS COUNTED IN DIFF 109 10/26/2023 7:27 AM T [facility] LABORATORY SERVICES - [facility] RBC MORPHOLOGY abnormal 10/26/2023 7:27 AM T [facility] LABORATORY SERVICES - [facility] PLATELET EST. Consistent w Count 10/26/2023 7:27 AM T [facility] LABORATORY SERVICES - [facility] PLATELET MORPHOLOGY abnormal 10/26/2023 7:27 AM T [facility] LABORATORY SERVICES - [facility] ANISOCYTOSIS 1+ /hpf 10/26/2023 7:27 AM T [facility] LABORATORY SERVICES - [facility] POIKILOCYTES 1+ /hpf 10/26/2023 7:27 AM T [facility] LABORATORY SERVICES - [facility] OVALOCYTES 1+ /hpf 10/26/2023 7:27 AM T [facility] LABORATORY SERVICES - [facility] CRENATED RBCS Present 10/26/2023 7:27 AM T [facility] LABORATORY SERVICES - [facility] GIANT PLATELETS Present 7:27 AM T [facility] LABORATORY SERVICES - [facility] Blood Venipuncture / Unknown 10/26/2023 5:04 AM CDT 10/26/2023 5:11 AM CDT Tana Schaefer PA-C HEMATOLOGY ORDE [employer] COM [facility] LABORATORY SERVICES - [facility] CLIA# [id number] [address] [id number] * (ABNORMAL) BASIC METABOLIC PANEL (10/26/2023 5:04 AM CDT) SODIUM 135(L) 136 - 145 mmol/L 10/26/2023 6:11 AM [facility]T [facility] POTASSIUM 3.9 3.5 - 5.0 mmol/L 10/26/2023 6:11 AM [facility] CHLORIDE 101 98 - 107 mmol/L 10/26/2023 6:11 AM [facility] CO2 23 22 - 29 mmol/L 10/26/2023 6:11 AM [facility] CALCIUM 8.6 8.6 - 10.2 mg/dL 10/26/2023 6:11 AM [facility] BUN 31(H) 8 - 23 mg/dL 10/26/2023 6:11 AM [facility] CREATININE 0.96(H) 0.51 - 0.95 mg/dL 10/26/2023 6:11 AM [facility] Comment:The GFR result is no t clinically significant on patients <18 or >70 years of age. GLUCOSE 100(H) 74 - 99 mg/dL 10/26/2023 6:11 AM [facility] GFR 60 mL/min/1.7 3 sq meter 10/26/2023 6:11 AM [facility] Comment:eGFR calculated with 2020 CKD-EPI equation. Vegetarian diet, extremely high or low muscle mass, and may affect results. Cystatin C with Glomerular Filtration Rate is a suitable alternative for these patients. ANION GAP 11 8 - 16 mmol/L 10/26/2023 6:11 AM [facility] Blood Venipuncture / Unknown 10/26/2023 5:04 AM CDT 10/26/2023 5:11 AM CDT Tana Schaefer PA-C CHEMISTRY ORDER [facility] CLIA# [id number] [address] [facility] [id number] * (ABNORMAL) CBC WITH DIFFERENTIAL (10/26/2023 5:04 AM CDT) [facility] WBC 16.0(H) 4.0 - 9.8 K/uL 10/26/2023 5:38 AM CDT [employer] LABORATORY SERVICES - [facility] RBC 3.27(L) 3.90 - 4.90 M/uL 10/26/2023 5:38 AM CDT [facility] LABORATORY SERVICES - [facility] HEMOGLOBIN 9.9(L) 11.8 - 14.8 g/dL 10/26/2023 5:38 AM CDT [facility] LABORATORY SERVICES - [facility] HEMATOCRIT 29.8(L) 35.5 - 44.0 % 10/26/2023 5:38 AM CDT [facility] LABORATORY SERVICES - . [facility] MCV 91.1 82.0 - 99.0 fL 10/26/2023 5:38 AM CDT [facility] LABORATORY SERVICES - [facility] MCH 30.3 27.2 - 32.6 pg 10/26/2023 5:38 AM CDT [facility] - [facility] MCHC 33.2 31.5 - 35.5 g/dL 10/26/2023 5:38 AM CDT [facility] LABORATORY SERVICES - [facility] RDW 15.0(H) 11.5 - 14.5 % 10/26/2023 5:38 AM CDT [employer] LABORATORY SERVICES - [facility] RDW-STDEV 49.8(H) 37.1 - 48.7 fL 10/26/2023 5:38 AM CDT [employer] LABORATORY SERVICES - [facility] PLATELETS 186 140 - 350 K/uL 10/26/2023 5:38 AM CDT [facility] LABORATORY SERVICES - [facility] MPV 11.5 9.3 - 12.4 fL 10/26/2023 5:38 AM CDT [employer] LABORATORY SERVICES - [facility] Blood Venipuncture / Unknown 10/26/2023 5:04 AM CDT 10/26/2023 5:11 AM CDT Tana Schaefer PA-C HEMATOLOGY JAMES DIANA [facility] LABORATORY SERVICES - [facility] CLIA# [id number] [address] [place] [address] * (ABNORMAL) POC GLUCOSE (10/25/2023 7:27 PM CDT) GLUCOSE POC 144(H) 74 - 99 mg/dL 10/25/2023 7:27 PM CDT [facility] LABORATORY SERVICES [facility] SPECIMEN SOURCE, GLUCOSE POC Whole Blood 10/25/2023 7:27 PM CDT [facility] LABORATORY SERVICES [facility] Blood, whole 10/25/2023 7:27 PM CDT 10/25/2023 7:55 PM CDT Edinson Ferrell MD POINT OF CARE TESTCHRISTY Nguyen [facility] [employer] [facility] CLIA# [id number] [address] [place] [address] * (ABNORMAL) POC GLUCOSE (10/25/2023 5:25 PM CDT) GLUCOSE POC 100(H) 74 - 99 mg/dL 10/25/2023 5:25 PM CDT [facility] LABORATORY [facility] SPECIMEN SOURCE, GLUCOSE POC Whole Blood 10/25/2023 5:25 PM CDT [facility] LABORATORY [facility] Blood, whole 10/25/2023 5:25 PM CDT 10/25/2023 5:58 PM CDT Edinson Ferrell MD POINT OF CARE TESTCHRISTY Nguyen [facility] [employer] [facility] CLIA# [id number] [address] [place] [address] * (ABNORMAL) POC GLUCOSE (10/25/2023 11:42 AM CDT) GLUCOSE POC 122(H) 74 - 99 mg/dL 10/25/2023 11:42 AM CDT [facility] LABORATORY [facility] SPECIMEN SOURCE, GLUCOSE POC Whole Blood 10/25/2023 11:[address] [facility] COMMENT, GLU POC Notified RN/MD 10/25/2023 11:[address] [facility] Blood, whole 10/25/2023 11:4 2 AM CDT 10/25/2023 11:59 AM CDT Edinson Ferrell MD POINT OF CARE TESTIN G [facility] CLIA# [id number] [address] [place] [address] * ECHOCARDIOGRAM W/ CONTRAST AGENT (10/25/2023 7:29 AM CDT) EJECTION FRACTION 65 INTERFACE SYSTEM 10/25/2023 6:58 AM CDT Narrative INTERFACE SYSTEM - 10/25/2023 7:52 AM CDT [facility] [address] [place] [address] [email or web address] Patient: ? Zee Martinez MRN: ? [id number] Study ID: ?[id number] Gender: ?F : ? 1945 Age: ? 78 Race: ?CAU Height ? 160cm Study Date: ?10/25/2023 Weight: ?60.8kg Access. #: ? [id number] Account #: ? [id number] BP: *Referring Physician:* Tana Schaefer Jacob *Ordering Physician:* ??Tana Schaefer light rail signal technician: Nurse: Indications: S/P CABG. STUDY CONCLUSIONS: SUMMARY: [...] AM. ?Prepared and Electronically Authenticated Haylee Rosario [id number] Procedure Note Haylee Rosario MD - 10/25/2023 [place] [address] [email or web address] Patient: Zee Martinez Study ID: [id number] Gender: F :1945 Age: 78 Race: CAU Height 160cm Study Date:10/25/2023 Weight: 60.8kg Access. #:[id number] BP: *Referring Physician:* Tana Schaefer Jacob *Ordering Physician:* Tana Schaefer light rail signal technician: Nurse: Indications: S/P CABG. STUDY CONCLUSIONS: SUMMARY: [...] ratio 1.09 --------- 1.42 Aortic valve Value Ref 09/21/2023 Peak v, S 1.4 m/sec --------- [...] 1.56 cm^2/m^2 --------- 1.35 Mitral valve Value Ref 09/21/2023 Mean v, D 0.47 m/sec --------- [...] 06:58 AM. Preparedand Electronically Authenticated Haylee Rosario [id number] Tana Schaefer PA-C US ORDERABLES INTERFACE SYSTEM Refer to clinic/hospital department * (ABNORMAL) POC GLUCOSE (10/25/2023 7:25 AM CDT) GLUCOSE POC 109(H) 74 - 99 mg/dL 10/25/2023 7:25 AM CDT [facility] LABORATORY SERVICES [facility] SPECIMEN SOURCE, GLUCOSE POC Whole Blood 10/25/2023 7:25 AM CDT [facility] LABORATORY [facility] COMMENT, GLU POC Notified RN/MD 10/25/2023 7:25 AM CDT [facility] LABORATORY [facility] Blood, whole 10/25/2023 7:25 AM CDT 10/25/2023 8:01 AM CDT Edinson Ferrell MD POINT OF CARE TESTIN G Performing Organization Address [facility] Co de Phone Number [facility] [employer] [facility] CLIA# [id number] [address] [facility] [place] [address] * XR CHEST PA OR AP 1 VW (10/25/2023 6:23 AM CDT) Anatomical Region Laterality Modality Chest Computed Radiogr aphy 10/25/2023 6:23 AM CDT Impressions 10/25/2023 5:34 PM CDT : Removal of mediastinal drains and left-sided chest tube. No pneumothorax. New small bilateral pleural effusions. There is also new bilateral basilar atelectasis. DICTATION LOCATION: Location 2 - [facility] Narrative 10/25/2023 5:34 PM CDT XR CHEST [...] SEGMENTED NEUTROPHILS 77 % 10/25/2023 6:05 AM [facility] LABORATORY SERVICES - . [facility] LYMPHOCYTES RELATIVE 7(L) 43 - 53 % 10/25/2023 6:05 AM [facility] LABORATORY SERVICES - . [facility] ATYPICAL LYMPHOCYTES RELATIVE 1 0 - 5 % 10/25/2023 6:05 AM [facility] LABORATORY SERVICES - . [facility] MONOCYTES RELATIVE 16 % 10/25/2023 6:05 AM [facility] LABORATORY SERVICES - . [facility] NEUTROPHILS ABSOLUTE COUNT 19.02(H) 1.90 - 7.00 K/uL 10/25/2023 6:05 AM [facility] LABORATORY SERVICES - . [facility] LYMPHOCYTES ABSOLUTE 1.69 0.70 - 4.50 K/uL 10/25/2023 6:05 AM [facility] LABORATORY SERVICES - . [facility] MONOCYTES ABSOLUTE 3.85(H) 0.10 - 1.30 K/uL 10/25/2023 6:05 AM [facility] LABORATORY SERVICES - . [facility] TOTAL CELLS COUNTED IN DIFF 103 10/25/2023 6:05 AM [facility] [employer] LABORATORY SERVICES - . [facility] RBC MORPHOLOGY abnormal 10/25/2023 6:05 AM [facility]ORATORY SERVICES - . [facility] PLATELET EST. Consistent w Count 10/25/2023 6:05 AM [facility] ANISOCYTOSIS 1+ /hpf 10/25/2023 6:05 AM [facility] . [facility] POIKILOCYTES 1+ /hpf 10/25/2023 6:05 AM [facility] LABORATORY SERVICES - [facility] CRENATED RBCS Present 10/25/2023 6:05 AM [facility] LABORATORY SERVICES - [facility] Blood Venipuncture / Unknown 10/25/2023 4:09 AM CDT 10/25/2023 4:14 AM CDT Tana Schaefer PA-C HEMATOLOGY ORDE [employer] [facility] LABORATORY SERVICES [facility] CLIA# [id number] [address] [place] [address] * (ABNORMAL) BASIC METABOLIC PANEL (10/25/2023 4:09 AM CDT) SODIUM 135(L) 136 - 145 mmol/L 10/25/2023 4:56 AM [facility] LABORATORY [facility] POTASSIUM 3.7 3.5 - 5.0 mmol/L 10/25/2023 4:56 AM [facility] LABORATORY [facility] CHLORIDE 101 98 - 107 mmol/L 10/25/2023 4:56 AM [facility] LABORATORY [facility]. [facility] CO2 24 22 - 29 mmol/L 10/25/2023 4:56 AM [facility] LABORATORY [facility] CALCIUM 8.8 8.6 - 10.2 mg/dL 10/25/2023 4:56 AM [facility] LABORATORY [facility]. [facility] BUN 34(H) 8 - 23 mg/dL 10/25/2023 4:56 AM [facility] LABORATORY [facility] CREATININE 1.14(H) 0.51 - 0.95 mg/dL 10/25/2023 4:56 AM [facility] LABORATORY [facility] Comment:The GFR result is no t clinically significant on patients <18 or >70 years of age. GLUCOSE 105(H) 74 - 99 mg/dL 10/25/2023 4:56 AM [facility] LABORATORY SERVICES [facility] GFR 49 mL/min/1.7 3 sq meter 10/25/2023 4:56 AM [facility] LABORATORY SERVICES [facility] Comment:eGFR calculated with 2020 CKD-EPI equation. Vegetarian diet, extremely high or low muscle mass, and may affect results. Cystatin C with Glomerular Filtration Rate is a suitable alternative for these patients. ANION GAP 10 8 - 16 mmol/L 10/25/2023 4:56 AM [facility] LABORATORY [facility] Blood Venipuncture / Unknown 10/25/2023 4:09 AM CDT 10/25/2023 4:14 AM CDT Tana Schaefer PA-C CHEMISTRY ORDER [place] [facility] [employer] [facility] CLIA# [id number] [address] [place] [id number] * (ABNORMAL) CBC WITH DIFFERENTIAL (10/25/2023 4:09 AM CDT) WBC 24.8(H) 4.0 - 9.8 K/uL 10/25/2023 5:09 AM [facility] [facility] RBC 3.48(L) 3.90 - 4.90 M/uL 10/25/2023 5:09 AM [facility] HEMOGLOBIN 10.5(L) 11.8 - 14.8 g/dL 10/25/2023 5:09 AM [facility] LABORATORY [facility] Comment:Significant change f rom prior result, correlate clinically and redraw if necessary. HEMATOCRIT 31.3(L) 35.5 - 44.0 % 10/25/2023 5:09 AM [facility] MCV 89.9 82.0 - 99.0 fL 10/25/2023 5:09 AM [facility] MCH 30.2 27.2 - 32.6 pg 10/25/2023 5:09 AM [facility] MCHC 33.5 31.5 - 35.5 g/dL 10/25/2023 5:09 AM [facility] RDW 15.1(H) 11.5 - 14.5 % 10/25/2023 5:09 AM CDT [facility] LABORATORY SERVICES - [facility] RDW-STDEV 49.2(H) 37.1 - 48.7 fL 10/25/2023 5:09 AM CDT [facility] LABORATORY SERVICES - [facility] PLATELETS 164 140 - 350 K/uL 10/25/2023 5:09 AM CDT [facility] LABORATORY SERVICES - [facility] MPV 12.0 9.3 - 12.4 fL 10/25/2023 5:09 AM CDT [facility] LABORATORY SERVICES - [facility] Blood Venipuncture / Unknown 10/25/2023 4:09 AM CDT 10/25/2023 4:14 AM CDT Tana Schaefer PA-C HEMATOLOGY [facility] CLMA# [id number] [address] [place] [address] * (ABNORMAL) POC GLUCOSE (10/24/2023 8:06 PM CDT) GLUCOSE POC 146(H) 74 - 99 mg/dL 10/24/2023 8:06 PM CDT [facility] LABORATORY [facility] SPECIMEN SOURCE, GLUCOSE POC Whole Blood 10/24/2023 8:06 PM CDT [facility]OR[facility] Blood, whole 10/24/2023 8:06 PM CDT 10/24/2023 8:14 PM CDT Edinson Ferrell MD POINT OF CARE TESTIN G [facility] CLIA# [id number] [address] [place] [address] * (ABNORMAL) POC GLUCOSE (10/24/2023 4:49 PM CDT) GLUCOSE POC 112(H) 74 - 99 mg/dL 10/24/2023 4:49 PM CDT [facility] LABORATORY SERVICES - [facility] SPECIMEN SOURCE, GLUCOSE POC Whole Blood 10/24/2023 4:49 PM CDT [facility] LABORATORY SERVICES [facility] COMMENT, GLU POC Notified RN/ 10/24/2023 4:49 PM CDT [facility] LABORATORY [facility] Blood, whole 10/24/2023 4:49 PM CDT 10/24/2023 5:29 PM CDT Edinson Ferrell MD POINT OF CARE TESTCHRISTY G [facility] LABORATORY [facility] CLIA# [id number] [address] [place] [address] * TRANSFUSE RED BLOOD CELLS (10/24/2023 1:45 PM CDT) Tana Schaefer PA-C BLOOD TRANSFUSI ON ORDERABLES * TRANSFUSE RED BLOOD CELLS (10/24/2023 1:45 PM CDT) Tana SIMS-Dorota BLOOD TRANSFUSI ON ORDERABLES * (ABNORMAL) POC GLUCOSE (10/24/2023 11:59 AM CDT) GLUCOSE POC 132(H) 74 - 99 mg/dL 10/24/2023 11:59 AM CDT [facility] LABORATORY SERVICES [facility] SPECIMEN SOURCE, GLUCOSE POC Whole Blood 10/24/2023 11:59 AM CDT [facility] LABORATORY SERVICES [facility] COMMENT, GLU POC Notified RN/ 10/24/2023 11:59 AM CDT [facility] LABORATORY SERVICES [facility] Blood, whole 10/24/2023 11:5 9 AM CDT 10/24/2023 5:25 PM CDT Edinson Ferrell MD POINT OF CARE TESTCHRISTY G [facility] LABORATORY [facility] CLIA# [id number] [address] [place] [address] * TYPE AND SCREEN (10/24/2023 9:35 AM CDT) ABO GROUP O 10/24/2023 10:57 AM CDT [facility] LABORATORY SERVICES -- [facility] RH (D) TYPE Positive 10/24/2023 10:57 AM CDT [facility] LABORATORY SERVICES -- [facility] ANTIBODY SCREEN Negative 10/24/2023 10:57 AM CDT [facility] LABORATORY SERVICES -- [facility] Blood Venipuncture / Unknown 10/24/2023 9:35 AM CDT 10/24/2023 9:39 AM CDT Tana Schaefer PA-C BLOOD BANK ORDE ADALGISA Performing Organization Address City/[facility]/ZIP Co de Phone Number [facility] LABORATORY SERVICES -- [facility] CLIA# [id number] [address] [place] [address] * PREPARE RED BLOOD CELLS (10/24/2023 8:54 AM CDT) COMPONENT TYPE [id number] [facility] LABORATORY SERVICES -- [facility] COMPONENT IDENTIFICATION [id number] [facility] LABORATORY SERVICES -- [facility] UNIT ABO O [facility] LABORATORY SERVICES -- [facility] UNIT RH NEG [facility] SERVICES -- [facility] CROSSMATCH Compatible [facility] LABORATORY SERVICES -- [facility] COMPONENT STATUS Transfused [facility] LABORATORY SERVICES -- .[facility] COMPONENT EXPIRATION DATE/TIME [id number] [facility] LABORATORY SERVICES -- [facility] COMPONENT CODING SYSTEM [phone] [facility] LABORATORY SERVICES -- [facility] VOLUME, BLOOD PRODUCT 350 [facility] LABORATORY SERVICES -- [facility] Other, specify 10/24/2023 8: 54 AM CDT Tana Schaefer PA-C LAB TRANSFUSION ORDERABLES Performing Organization Address [facility]/ZIP Co de Phone Number [facility] LABORATORY SERVICES -- [facility] CLIA# [id number] [address] [place] [address] * (ABNORMAL) POC GLUCOSE (10/24/2023 8:11 AM CDT) GLUCOSE POC 110(H) 74 - 99 mg/dL 10/24/2023 8:11 AM CDT [facility] SPECIMEN SOURCE, GLUCOSE POC Whole Blood 10/24/2023 8:[address] [facility] Blood, whole 10/24/2023 8:11 AM CDT 10/24/2023 8:41 AM CDT Edinson Ferrell MD POINT OF CARE TESTIN G [facility] CLIA# [id number] [address] [facility] [place] [address] * EKG 12-LEAD (10/24/2023 7:07 AM CDT) 10/24/2023 7:07 AM CDT Narrative INTERFACE SYSTEM - 10/24/2023 8:39 AM CDT ? [facility] ? [address] [place] [address] ? Test Date: ?2023-10-24 Pat Name: ? ZEE MARTINEZ ? Department: ?? 60 ?Room: ? 4090 1 Gender: ? Female ? 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 Wilkj6 : ?1945 ? Requested By: SARBJIT BROOKS S Order Number: [id number] ? Reading MD: ?? Jovana Bryan ? Measurements Intervals ?[place] ? Rate: ? 120 ?P: ?0 CA: ? 0 ?QRS: ?22 QRSD: ? 77 ? T: ?83 QT: ? 294 ? QTc: ?415 ? Interpretive Statements ATRIAL FIBRILLATION WITH RAPID VENTRICULAR RESPONSE NONSPECIFIC T-WAVE ABNORMALITY ABNORMAL RHYTHM ECG Electronically Signed On 10-24-2023 8:39:51 CDT by Jovana Bryan Procedure Note Jovana Bryan MD - 10/24/2023 [facility] [address] [facility], [place] [address] Test Date: 2023-10-24 Pat Name: ZEE MARTINEZ Department: 60 Room: [facility] Gender: Female Track Laborer: Morro : 1945 Requested By: SARBJIT Martinez Order Number: [id number] Reading MD: Jovana Bryan Measurements Intervals [place] Rate: 120 P: 0 CA: 0 QRS: 22 QRSD: 77 T: 83 QT: 294 QTc: 415 Interpretive Statements ATRIAL FIBRILLATION WITH RAPID VENTRICULAR RESPONSE NONSPECIFIC T-WAVE ABNORMALITY ABNORMAL RHYTHM ECG Electronically Signed On 10-24-2023 8:39:51 CDT by Jovana Bryan Tana Schaefer PA-C ECG ORDERABLES INTERFACE SYSTEM Refer to clinic/hospital department * (ABNORMAL) BLOOD GAS VENOUS (10/24/2023 4:56 AM CDT) PH BLOOD POC 7.38 7.32 - 7.43 10/24/2023 4:56 AM CDT [employer] LABORATORY SERVICES - [facility] PCO2 POC 41 38 - 50 mm Hg 10/24/2023 4:56 AM CDT [employer] LABORATORY SERVICES - . [facility] PO2 POC 37 25 - 40 mm Hg 10/24/2023 4:56 AM CDT [employer] LABORATORY SERVICES - [facility] HCO3 (CALC) POC 24 22 - 29 mmol/L 10/24/2023 4:56 AM T [employer] LABORATORY SERVICES - [facility] HEMOGLOBIN POC 9.1(L) 11.8 - 14.8 g/dL 10/24/2023 4:56 AM T [employer] LABORATORY SERVICES - . [facility] BASE EXCESS POC -1 No Reference Range Established mmol/L 10/24/2023 4:56 AM T [employer] LABORATORY SERVICES [facility] O2 SATURATION POC 65 40 - 70 % 10/24/2023 4:56 AM [facility] [employer] LABORATORY SERVICES - . [facility] HEMATOCRIT POC 27(L) 35 - 44 % 10/24/2023 4:56 AM T [employer] LABORATORY SERVICES - [facility] Comment:Estimated Value PH TEMP CORRECT 7.38 7.32 - 7.43 10/24/2023 4:56 AM CDT [employer] LABORATORY SERVICES - [facility] PCO2 TEMP CORRECT 41 38 - 50 mm Hg 10/24/2023 4:56 AM CDT [employer] LABORATORY SERVICES - [facility] PO2 TEMP CORRECT 37 25 - 40 mm Hg 10/24/2023 4:56 AM CDT [facility] LABORATORY SERVICES - [facility] SPECIMEN SOURCE, GASES POC Venous 10/24/2023 4:56 AM CDT [facility] LABORATORY SERVICES - . [facility] COMMENT, GASES POC Responsible Clinical Caregiver notified 10/24/2023 4:56 AM CDT [facility] LABORATORY SERVICES - [facility] TCO2 (CALC) POC 26 22 - 26 mmol/L 10/24/2023 4:56 AM CDT [facility] LABORATORY SERVICES - . [facility] FIO2 21.0 21.0 - 100.0 % 10/24/2023 4:56 AM T [employer] LABORATORY SERVICES - [facility] PATIENT'S TEMPERATURE POC 37.0 degrees 10/24/2023 4:56 AM T [facility] LABORATORY SERVICES - [facility] Blood, venous 10/24/2023 4:5 6 AM CDT 10/24/2023 4:57 AM CDT Edinson Ferrell MD ABG ORDERABLES [facility] [employer] [facility]# [id number] [address] [facility] [place] [address] * (ABNORMAL) MANUAL DIFFERENTIAL (10/24/2023 4:53 AM CDT) SEGMENTED NEUTROPHILS 81 % 10/24/2023 7:55 AM CDT [facility] LABORATORY [facility] LYMPHOCYTES RELATIVE 4(L) 43 - 53 % 10/24/2023 7:55 AM CDT [facility] LABORATORY [facility] MONOCYTES RELATIVE 15 % 10/24/2023 7:55 AM CDT [facility] LABORATORY [facility] NEUTROPHILS ABSOLUTE COUNT 23.39(H) 1.90 - 7.00 K/uL 10/24/2023 7:55 AM CDT [facility] LABORATORY [facility] LYMPHOCYTES ABSOLUTE 1.06 0.70 - 4.50 K/uL 10/24/2023 7:55 AM CDT [facility] LABORATORY [facility] MONOCYTES ABSOLUTE 4.25(H) 0.10 - 1.30 K/uL 10/24/2023 7:55 AM CDT [facility] LABORATORY SERVICES - [facility] TOTAL CELLS COUNTED IN DIFF 108 10/24/2023 7:55 AM CDT [facility] LABORATORY SERVICES - [facility] RBC MORPHOLOGY abnormal 10/24/2023 7:55 AM CDT [facility] LABORATORY SERVICES - [facility] PLATELET EST. Consistent w Count 10/24/2023 7:55 AM CDT [facility] LABORATORY SERVICES - [facility] ANISOCYTOSIS 1+ /hpf 10/24/2023 7:55 AM CDT [facility] LABORATORY SERVICES - [facility] POIKILOCYTES 1+ /hpf 10/24/2023 7:55 AM CDT [facility] LABORATORY SERVICES - [facility] CRENATED RBCS Present 10/24/2023 7:55 AM CDT [facility] LABORATORY SERVICES - [facility] Blood Venipuncture / Unknown 10/24/2023 4:53 AM CDT 10/24/2023 4:58 AM CDT Tana Schaefer PA-C HEMATOLOGY ORDE ftopia [facility] LABORATORY SERVICES - [facility] CLIA# [id number] [address] [place] [address] * (ABNORMAL) BASIC METABOLIC PANEL (10/24/2023 4:53 AM CDT) SODIUM 136 136 - 145 mmol/L 10/24/2023 6:34 AM CDT [employer] LABORATORY SERVICES - [facility] POTASSIUM 4.2 3.5 - 5.0 mmol/L 10/24/2023 6:34 AM CDT [facility] LABORATORY SERVICES - [facility] CHLORIDE 102 98 - 107 mmol/L 10/24/2023 6:34 AM CDT [facility] LABORATORY SERVICES - [facility] CO2 24 22 - 29 mmol/L 10/24/2023 6:34 AM CDT [facility] LABORATORY SERVICES - [facility] CALCIUM 8.8 8.6 - 10.2 mg/dL 10/24/2023 6:34 AM CDT [employer] LABORATORY SERVICES - [facility] BUN 34(H) 8 - 23 mg/dL 10/24/2023 6:34 AM CDT [employer] LABORATORY SERVICES - [facility] CREATININE 1.48(H) 0.51 - 0.95 mg/dL 10/24/2023 6:34 AM [facility] Comment:The GFR result is no t clinically significant on patients <18 or >70 years of age. GLUCOSE 119(H) 74 - 99 mg/dL 10/24/2023 6:34 AM [facility] GFR 36 mL/min/1.7 3 sq meter 10/24/2023 6:34 AM [facility] Comment:eGFR calculated with 2020 CKD-EPI equation. Vegetarian diet, extremely high or low muscle mass, and may affect results. Cystatin C with Glomerular Filtration Rate is a suitable alternative for these patients. ANION GAP 10 8 - 16 mmol/L 10/24/2023 6:34 AM [facility] Blood Venipuncture / Unknown 10/24/2023 4:53 AM CDT 10/24/2023 4:58 AM CDT Tana Schaefer PA-C CHEMISTRY ORDER [facility] CLIA# [id number] [address] [facility] [place] [address] * (ABNORMAL) CBC WITH DIFFERENTIAL (10/24/2023 4:53 AM CDT) WBC 28.7(H) 4.0 - 9.8 K/uL 10/24/2023 5:[address] [facility] RBC 2.89(L) 3.90 - 4.90 M/uL 10/24/2023 5:21 AM [facility] HEMOGLOBIN 8.7(L) 11.8 - 14.8 g/dL 10/24/2023 5:21 AM [facility] HEMATOCRIT 26.6(L) 35.5 - 44.0 % 10/24/2023 5:21 AM [facility] MCV 92.0 82.0 - 99.0 fL 10/24/2023 5:21 AM CDT [employer] LABORATORY SERVICES - [facility] MCH 30.1 27.2 - 32.6 pg 10/24/2023 5:21 AM CDT [employer] LABORATORY SERVICES - [facility] MCHC 32.7 31.5 - 35.5 g/dL 10/24/2023 5:21 AM CDT [facility] LABORATORY SERVICES - [facility] RDW 14.6(H) 11.5 - 14.5 % 10/24/2023 5:21 AM CDT [employer] LABORATORY SERVICES - [facility] RDW-STDEV 49.5(H) 37.1 - 48.7 fL 10/24/2023 5:21 AM CDT [employer] LABORATORY SERVICES - [facility] PLATELETS 148 140 - 350 K/uL 10/24/2023 5:21 AM CDT [facility] LABORATORY SERVICES - [facility] MPV 11.9 9.3 - 12.4 fL 10/24/2023 5:21 AM CDT [facility] LABORATORY SERVICES - [facility] Blood Venipuncture / Unknown 10/24/2023 4:53 AM CDT 10/24/2023 4:58 AM CDT Tana Schaefer PA-C HEMATOLOGY JAMES DIA[facility] [employer] [facility]# [id number] [address] [place] [address] * (ABNORMAL) POC GLUCOSE (10/23/2023 10:24 PM CDT) GLUCOSE POC 189(H) 74 - 99 mg/dL 10/23/2023 10:24 PM CDT [facility] LABORATORY SERVICES - [facility] SPECIMEN SOURCE, GLUCOSE POC Whole Blood 10/23/2023 10:24 PM CDT [facility] LABORATORY [facility] Blood, whole 10/23/2023 10:2 4 PM CDT 10/24/2023 1:03 PM CDT Edinson Ferrell MD POINT OF CARE TESTIN G [facility] [employer] [facility]# [id number] [address] [place] [address] * (ABNORMAL) POC GLUCOSE (10/23/2023 8:26 PM CDT) GLUCOSE POC 240(H) 74 - 99 mg/dL 10/23/2023 8:26 PM CDT [employer] LABORATORY SERVICES - [facility] SPECIMEN SOURCE, GLUCOSE POC Whole Blood 10/23/2023 8:26 PM CDT [employer] LABORATORY SERVICES - [facility] COMMENT, GLU POC Notified RN/MD 10/23/2023 8:26 PM CDT [employer] LABORATORY SERVICES - [facility] Blood, whole 10/23/2023 8:26 PM CDT 10/23/2023 8:34 PM CDT Edinson Ferrell MD POINT OF CARE TESTIN G Performing Organization Address [facility]/ZIP Co de Phone Number [facility] [employer] [facility]# [id number] [address] [place] [address] * (ABNORMAL) BLOOD GAS ARTERIAL (10/23/2023 5:52 PM CDT) [facility] PH BLOOD POC 7.37 7.35 - 7.45 10/23/2023 5:52 PM CDT [employer] LABORATORY SERVICES [facility] PCO2 POC 37 35 - 48 mm Hg 10/23/2023 5:52 PM CDT [employer] LABORATORY SERVICES [facility] PO2 POC 75(L) 83 - 108 mm Hg 10/23/2023 5:52 PM CDT [employer] LABORATORY SERVICES - [facility] HCO3 (CALC) POC 21(L) 22 - 26 mmol/L 10/23/2023 5:52 PM CDT [employer] LABORATORY SERVICES - [facility] HEMOGLOBIN POC 9.6(L) 11.8 - 14.8 g/dL 10/23/2023 5:52 PM CDT [employer] LABORATORY SERVICES - [facility] BASE EXCESS POC -4(L) -2 - 3 mmol/L 10/23/2023 5:52 PM CDT [facility] LABORATORY SERVICES - [facility] O2 SATURATION POC 97 94 - 98 % 10/23/2023 5:52 PM CDT [facility] LABORATORY SERVICES - [facility] HEMATOCRIT POC 29(L) 35 - 44 % 10/23/2023 5:52 PM T [facility] LABORATORY SERVICES - [facility] Comment:Estimated Value PH TEMP CORRECT 7.37 7.35 - 7.45 10/23/2023 5:52 PM T [facility] LABORATORY SERVICES - [facility] PCO2 TEMP CORRECT 37 35 - 48 mm Hg 10/23/2023 5:52 PM CDT [facility] LABORATORY SERVICES - [facility] PO2 TEMP CORRECT 75(L) 83 - 108 mm Hg 10/23/2023 5:52 PM T [facility] LABORATORY SERVICES - [facility] SPECIMEN SOURCE, GASES POC Arterial 10/23/2023 5:52 PM [facility] LABORATORY SERVICES - [facility] COMMENT, GASES POC Responsible Clinical Caregiver notified 10/23/2023 5:52 PM T [facility] LABORATORY SERVICES - [facility] TCO2 (CALC) POC 23 19 - 24 mmol/L 10/23/2023 5:52 PM T [facility] LABORATORY SERVICES - [facility] FIO2 21.0 21.0 - 100.0 % 10/23/2023 5:52 PM CDT [facility] LABORATORY SERVICES - [facility] P/F RATIO POC 357 10/23/2023 5:52 PM [facility] LABORATORY SERVICES - [facility] PATIENT'S TEMPERATURE POC 37.0 degrees 10/23/2023 5:52 PM T [facility] LABORATORY SERVICES - . [facility] PAO2 POC 103 10/23/2023 5:52 PM T [facility] LABORATORY SERVICES - [facility] ARTERIAL/ALVEO LAR O2 RATIO 0.7300 10/23/2023 5:52 PM T [facility] LABORATORY SERVICES - [facility] Blood, arterial 10/23/2023 5 :52 PM CDT 10/23/2023 5:54 PM CDT Edinson STEELG ORDERABLES [facility] LABORATORY SERVICES - [facility] CLIA# [id number] [address] [place] [address] * (ABNORMAL) MANUAL DIFFERENTIAL (10/23/2023 5:15 PM CDT) SEGMENTED NEUTROPHILS 79 % 10/23/2023 6:29 PM CDT [facility] LABORATORY [facility] LYMPHOCYTES RELATIVE 2(L) 43 - 53 % 10/23/2023 6:[address] [facility] MONOCYTES RELATIVE 19 % 10/23/2023 6:[address] [facility] NEUTROPHILS ABSOLUTE COUNT 24.52(H) 1.90 - 7.00 K/uL 10/23/2023 6:[address] [facility] LYMPHOCYTES ABSOLUTE 0.56(L) 0.70 - 4.50 K/uL 10/23/2023 6:29 PM CDT [facility] LABORATORY [facility] MONOCYTES ABSOLUTE 5.92(H) 0.10 - 1.30 K/uL 10/23/2023 6:[address] [facility] TOTAL CELLS COUNTED IN DIFF 110 10/23/2023 6:[address] [facility] RBC MORPHOLOGY abnormal 10/23/2023 6:[address] [facility] PLATELET EST. Consistent w Count 10/23/2023 6:[address] [facility] POIKILOCYTES 1+ /hpf 10/23/2023 6:[address] [facility] CRENATED RBCS Present 10/23/2023 6:[address] [facility] Blood Venipuncture / Unknown 10/23/2023 5:15 PM CDT 10/23/2023 5:40 PM CDT Edinson Ferrell MD HEMATOLOGY ORDERABLE S COM [facility] LABORATORY [facility] CLIA# [id number] [address] [facility] [address] * MAGNESIUM LEVEL (10/23/2023 5:15 PM CDT) Pathologist [facility] MAGNESIUM 2.4 1.6 - 2.4 mg/dL 10/23/2023 6:23 PM CDT [facility] LABORATORY [facility] Blood Venipuncture / Unknown 10/23/2023 5:15 PM CDT 10/23/2023 5:40 PM CDT Edinson Ferrell MD CHEMISTRY ORDERABLES [facility] SERVICES [facility]# [id number] [address] [facility] [place] [address] * (ABNORMAL) BASIC METABOLIC PANEL (10/23/2023 5:15 PM CDT) Pathologist [facility] SODIUM 135(L) 136 - 145 mmol/L 10/23/2023 6:23 PM T [facility] POTASSIUM 4.8 3.5 - 5.0 mmol/L 10/23/2023 6:23 PM T [facility] CHLORIDE 103 98 - 107 mmol/L 10/23/2023 6:23 PM T [facility] CO2 21(L) 22 - 29 mmol/L 10/23/2023 6:23 PM T [facility] CALCIUM 9.0 8.6 - 10.2 mg/dL 10/23/2023 6:23 PM T [facility] BUN 27(H) 8 - 23 mg/dL 10/23/2023 6:23 PM T [facility] CREATININE 1.29(H) 0.51 - 0.95 mg/dL 10/23/2023 6:23 PM T [facility] Comment:The GFR result is no t clinically significant on patients <18 or >70 years of age. GLUCOSE 162(H) 74 - 99 mg/dL 10/23/2023 6:23 PM T [facility] GFR 42 mL/min/1.7 3 sq meter 10/23/2023 6:23 PM T [facility] Comment:eGFR calculated with 2020 CKD-EPI equation. Vegetarian diet, extremely high or low muscle mass, and may affect results. Cystatin C with Glomerular Filtration Rate is a suitable alternative for these patients. ANION GAP 11 8 - 16 mmol/L 10/23/2023 6:23 PM CDT [facility] Blood Venipuncture / Unknown 10/23/2023 5:15 PM CDT 10/23/2023 5:40 PM CDT Edinson Ferrell MD CHEMISTRY ORDERABLES [facility] CLIA# [id number] [address] [facility] [place] [address] * (ABNORMAL) CBC WITH DIFFERENTIAL (10/23/2023 5:15 PM CDT) WBC 31.0(H) 4.0 - 9.8 K/uL 10/23/2023 5:58 PM CDT [facility] RBC 3.10(L) 3.90 - 4.90 M/uL 10/23/2023 5:58 PM CDT [facility] HEMOGLOBIN 9.5(L) 11.8 - 14.8 g/dL 10/23/2023 5:58 PM CDT [facility] HEMATOCRIT 29.0(L) 35.5 - 44.0 % 10/23/2023 5:58 PM CDT [facility] MCV 93.5 82.0 - 99.0 fL 10/23/2023 5:58 PM CDT [facility] MCH 30.6 27.2 - 32.6 pg 10/23/2023 5:58 PM CDT [facility] MCHC 32.8 31.5 - 35.5 g/dL 10/23/2023 5:58 PM CDT [facility] RDW 14.6(H) 11.5 - 14.5 % 10/23/2023 5:58 PM CDT [employer] LABORATORY SERVICES [facility] RDW-STDEV 50.3(H) 37.1 - 48.7 fL 10/23/2023 5:58 PM CDT [facility] LABORATORY SERVICES - [facility] PLATELETS 173 140 - 350 K/uL 10/23/2023 5:58 PM CDT [facility] LABORATORY SERVICES - [facility] MPV 12.6(H) 9.3 - 12.4 fL 10/23/2023 5:58 PM CDT [facility] LABORATORY SERVICES - [facility] Blood Venipuncture / Unknown 10/23/2023 5:15 PM CDT 10/23/2023 5:40 PM CDT Edinson Ferrell MD HEMATOLOGY ORDERABLE S [facility] LABORATORY [facility]# [id number] [address] [place] [address] * (ABNORMAL) POC GLUCOSE (10/23/2023 5:14 PM CDT) [facility] GLUCOSE POC 163(H) 74 - 99 mg/dL 10/23/2023 5:14 PM CDT [facility] LABORATORY SERVICES - [facility] SPECIMEN SOURCE, GLUCOSE POC Whole Blood 10/23/2023 5:14 PM CDT [facility] LABORATORY [facility] - [facility] Blood, whole 10/23/2023 5:14 PM CDT 10/23/2023 5:33 PM CDT Edinson Ferrell MD POINT OF CARE TESTIN G [facility] LABORATORY [facility] CLIA# [id number] [address] [place] [address] * EKG 12-LEAD (10/23/2023 4:43 PM CDT) 10/23/2023 4:43 PM CDT Narrative INTERFACE SYSTEM - 10/23/2023 4:44 PM CDT ? [facility] [place] ? [address] [facility], [place] [address] ? Test Date: ?2023-10-23 Pat Name: ? ZEE MARTINEZ ? Department: ?? 60 ?Room: ? 4090 1 Gender: ? Female ? 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 [email or web address] : ?1945 ? Requested By: SARBJIT BROOKS S Order Number: [id number] ? Reading MD: ?? Monroe Brunts ? Measurements Intervals ?[place] ? Rate: ? 51 ? P: ?13 CA: ? 175 ?QRS: ?28 QRSD: ? 86 ? T: ?65 QT: ? 427 ? QTc: ?397 ? Interpretive Statements SINUS BRADYCARDIA POSSIBLE RIGHT VENTRICULAR CONDUCTION DELAY ??[RSR (QR) IN V1/V2] MARKED ST ELEVATION, CONSIDER ANTERIOR INJURY ??[MARKED ST ELEVATION W/O NORMALLY INFLECTED T-WAVE IN V2-V5] ACUTE [place] Electronically Signed On 10-23-2023 16:44:36 CDT by Monroe Howell Procedure Note Monroe Howell MD - 10/23/2023 [facility] [address] [place] [address] Test Date: 2023-10-23 Pat Name: ZEE MARTINEZ Department: 60 Room: 4090 1 Gender: Female Track Laborer: [email or web address] : 1945 Requested By: SARBJIT Martinez Order Number: [id number] Reading MD: Monroe Howell Measurements Intervals [place] Rate: 51 P: 13 CA: 175 QRS: 28 QRSD: 86 T: 65 QT: 427 QTc: 397 Interpretive Statements SINUS BRADYCARDIA POSSIBLE RIGHT VENTRICULAR CONDUCTION DELAY [RSR (QR) IN V1/V2] MARKED ST ELEVATION, CONSIDER ANTERIOR INJURY [MARKED ST ELEVATION W/O NORMALLY INFLECTED T-WAVE IN V2-V5] ACUTE [place] Electronically Signed On 10-23-2023 16:44:36 CDT by Monroe Howell Tana Schaefer PA-C ECG ORDERABLES INTERFACE SYSTEM Refer to clinic/hospital department * (ABNORMAL) POC GLUCOSE (10/23/2023 12:07 PM CDT) GLUCOSE POC 129(H) 74 - 99 mg/dL 10/23/2023 12:[address] [facility] SPECIMEN SOURCE, GLUCOSE POC Whole Blood 10/23/2023 12:[address] [facility] Blood, whole 10/23/2023 12:0 7 PM CDT 10/23/2023 5:33 PM CDT Edinson Ferrell MD POINT OF CARE TESTIN G [facility] CLIA# [id number] [address] [place] [address] * POC TEG STANDARD A (10/23/2023 10:30 AM CDT) CITRATED KAOLIN REACTION TIME (CK-R) POC 10/23/2023 1:[address] [facility] Comment: Invalid result This is a corrected result. Previous result was 10.4 min on 10/23/2023 at 1209 CDT CITRATED KAOLIN ANGLE (CK-A) POC 10/23/2023 1:18 PM CDT [facility] LABORATORY [facility] Comment: Invalid result This is a corrected result. Previous result was 56.6 deg on 10/23/2023 at 1209 CDT CITRATED [place] MAXIMUM AMPLITUDE(CK-MA ) POC 10/23/2023 1:[address] [facility] Comment: Invalid result This is a corrected result. Previous result was 58 mm on 10/23/2023 at 1209 CDT CITRATED RAPID MAXIMUM AMPLITUDE (LEGAL OFFICE ADMINISTRATOR-MA) POC 10/23/2023 1:18 PM CDT [facility] LABORATORY [facility] Comment: Invalid result This is a corrected result. Previous result was 59 mm on 10/23/2023 at 1209 CDT CITRATED [place] HEPARINASE REACTION TIME (CKH-RT) POC 10/23/2023 1:18 PM CDT [facility] LABORATORY [facility] Comment: Invalid result This is a corrected result. Previous result was 10.9 min on 10/23/2023 at 1209 CDT CITRATE FUNCTIONAL FIBRINOGEN MAX AMPLITUDE, CFF-MA POC 10/23/2023 1:[address] [facility] Comment: Invalid result This is a corrected result. Previous result was 18 mm on 10/23/2023 at 1209 CDT CITRATED FUNCTIONAL FIBRINOGEN (CFF-FLEV) POC 10/23/2023 1:[address] [facility] Comment: Invalid result This is a corrected result. Previous result was 332 mg/dl on 10/23/2023 at 1209 CDT [facility]RATED [place] KINETICS (CK-K) POC 10/23/2023 1:[address] [facility] Comment: Invalid result This is a corrected result. Previous result was 2.7 min on 10/23/2023 at 1209 CDT 10/23/2023 10:3 0 AM CDT 10/23/2023 12:09 PM CDT Edinson Ferrell MD POINT OF CARE TESTIN G [facility]# [id number] [address] [place] [address] * EKG 12-LEAD (10/23/2023 8:23 AM CDT) 10/23/2023 8:23 AM CDT Narrative INTERFACE SYSTEM - 10/23/2023 11:01 AM CDT ? [facility] ? [address] [place] [address] ? Test Date: ?2023-10-23 Pat Name: ? ZEE MARTINEZ ? Department: ?? 60 ?Room: ? 4090 1 Gender: ? Female ? 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 [email or web address] : ?1945 ? Requested By: SARBJIT BROOKS S Order Number: [id number] ? Reading MD: ?? Chang Wiele ? Measurements Intervals ?[place] ? Rate: ? 64 ? P: ?70 CA: ? 193 ?QRS: ?34 QRSD: ? 75 ? T: ?62 QT: ? 393 ? QTc: ?407 ? Interpretive Statements SINUS RHYTHM WITH SINUS ARRHYTHMIA POSSIBLE RIGHT VENTRICULAR CONDUCTION DELAY ??[RSR (QR) IN V1/V2] ST ELEVATION - EXCLUDE ACUTE OH ??[MARKED ST ELEVATION W/O NORMALLY INFLECTED T-WAVE] Electronically Signed On 10-23-2023 11:01:05 CDT by Chang Villanueva Procedure Note Provider, Historical - 10/23/[address]23 [facility] [address] , [place] [address] Test Date: 2023-10-23 Pat Name: ZEE MARTINEZ Department: 60 Room: [facility] Gender: Female Track Laborer: [email or web address] : 1945 Requested By: SARBJIT Martinez Order Number: [id number] Reading MD: Chang Villanueva Measurements Intervals [place] Rate: 64 P: 70 CA: 193 QRS: 34 QRSD: 75 T: 62 QT: 393 QTc: 407 Interpretive Statements SINUS RHYTHM WITH SINUS ARRHYTHMIA POSSIBLE RIGHT VENTRICULAR CONDUCTION DELAY [RSR (QR) IN V1/V2] ST ELEVATION - EXCLUDE ACUTE OH [MARKED ST ELEVATION W/O NORMALLYINFLECTED T-WAVE] Electronically Signed On 10-23-2023 11:01:05 CDT by Chang Villanueva Tana Schaefer PA-C ECG ORDERABLES INTERFACE SYSTEM Refer to clinic/hospital department * (ABNORMAL) POC GLUCOSE (10/23/2023 8:06 AM CDT) GLUCOSE POC 100(H) 74 - 99 mg/dL 10/23/2023 8:06 AM CDT [facility] LABORATORY [facility] SPECIMEN SOURCE, GLUCOSE POC Whole Blood 10/23/2023 8:06 AM CDT [facility] LABORATORY [facility] Blood, whole 10/23/2023 8:06 AM CDT 10/23/2023 8:41 AM CDT Edinson Ferrell MD POINT OF CARE TESTIN G [facility] LABORATORY [facility] CLIA# [id number] [address] [facility] [place] [address] * POC TEG STANDARD A (10/23/2023 7:19 AM CDT) CITRATED KAOLIN REACTION TIME (CK-R) POC 10/23/2023 1:[address] [facility] Comment: Invalid result This is a corrected result. Previous result was 7.1 min on 10/23/2023 at 0855 CDT CITRATED KAOLIN ANGLE (CK-A) POC 10/23/2023 1:[address] [facility] Comment: Invalid result This is a corrected result. Previous result was 55.3 deg on 10/23/2023 at 0855 CDT CITRATED KAOLIN MAXIMUM AMPLITUDE(CK-MA ) POC 10/23/2023 1:[address] [facility] Comment: Invalid result This is a corrected result. Previous result was 60 mm on 10/23/2023 at 0855 CDT CITRATED RAPID MAXIMUM AMPLITUDE (LEGAL OFFICE ADMINISTRATOR-MA) POC 10/23/2023 1:[address] [facility] Comment: Invalid result This is a corrected result. Previous result was 64 mm on 10/23/2023 at 0855 CDT CITRATED [facility]IN HEPARINASE REACTION TIME (CKH-RT) POC 10/23/2023 1:[address] [facility] Comment: Invalid result This is a corrected result. Previous result was 8.2 min on 10/23/2023 at 0855 CDT CITRATE FUNCTIONAL FIBRINOGEN MAX AMPLITUDE, CFF-MA POC 10/23/2023 1:[address] [facility] Comment: Invalid result This is a corrected result. Previous result was 21 mm on 10/23/2023 at 0855 CDT CITRATED FUNCTIONAL FIBRINOGEN (CFF-FLEV) POC 10/23/2023 1:[address] [facility] Comment: Invalid result This is a corrected result. Previous result was 380 mg/dl on 10/23/2023 at 0855 CDT [facility] KINETICS (CK-K) POC 10/23/2023 1:[address] [facility] Comment: Invalid result This is a corrected result. Previous result was 3.3 min on 10/23/2023 at 0855 CDT 10/23/2023 7:19 AM CDT 10/23/2023 8:55 AM CDT Edinson Ferrell MD POINT OF CARE TESTIN G [facility] LABORATORY [facility] CLIA# [id number] [address] [place] [address] * (ABNORMAL) POC GLUCOSE (10/23/2023 7:12 AM CDT) GLUCOSE POC 123(H) 74 - 99 mg/dL 10/23/2023 7:12 AM CDT [facility] LABORATORY SERVICES [facility] SPECIMEN SOURCE, GLUCOSE POC Whole Blood 10/23/2023 7:12 AM CDT [facility] LABORATORY SERVICES [facility] Blood, whole 10/23/2023 7:12 AM CDT 10/23/2023 9:04 AM CDT Edinson Ferrell MD POINT OF CARE TESTCHRISTY G [facility] LABORATORY [facility] CLMA# [id number] [address] [place] [address] * (ABNORMAL) POC GLUCOSE (10/23/2023 6:06 AM CDT) GLUCOSE POC 128(H) 74 - 99 mg/dL 10/23/2023 6:06 AM CDT [facility] LABORATORY SERVICES [facility] SPECIMEN SOURCE, GLUCOSE POC Whole Blood 10/23/2023 6:06 AM CDT [facility] LABORATORY SERVICES [facility] Blood, whole 10/23/2023 6:06 AM CDT 10/23/2023 9:04 AM CDT Edinson Ferrell MD POINT OF CARE TESTCHRISTY G [facility] LABORATORY [facility] CLIA# [id number] [address] [facility] [address] [place] [address] * XR CHEST PA OR AP 1 [...] - 99 mg/dL 10/23/2023 5:23 AM CDT [facility] LABORATORY [facility] SPECIMEN SOURCE, GLUCOSE POC Whole Blood 10/23/2023 5:23 AM CDT [facility] LABORATORY [facility] Blood, whole 10/23/2023 5:23 AM CDT 10/23/2023 9:04 AM CDT Edinson Ferrell MD POINT OF CARE TESTIN G Performing Organization Address [facility] de Phone Number [facility] [id number] [address] [facility] [address] [place] [address] * (ABNORMAL) POC GLUCOSE (10/23/2023 4:07 AM CDT) [facility] GLUCOSE POC 153(H) 74 - 99 mg/dL 10/23/2023 4:07 AM T [facility] LABORATORY [facility] SPECIMEN SOURCE, GLUCOSE POC Whole Blood 10/23/2023 4:07 AM T [facility] LABORATORY [facility] Blood, whole 10/23/2023 4:07 AM CDT 10/23/2023 9:04 AM CDT Edinson Ferrell MD POINT OF CARE TESTIN G Performing Organization Address [facility] Phone Number [facility] CLIA# [id number] [address] [place] [address] [place] [address] * (ABNORMAL) MANUAL DIFFERENTIAL (10/23/2023 4:07 AM CDT) [facility] SEGMENTED NEUTROPHILS 78 % 10/23/2023 6:41 AM CDT [facility] LABORATORY SERVICES [facility] LYMPHOCYTES RELATIVE 0(L) 43 - 53 % 10/23/2023 6:41 AM CDT [facility] LABORATORY [facility] MONOCYTES RELATIVE 22 % 10/23/2023 6:41 AM T [facility] LABORATORY [facility] NEUTROPHILS ABSOLUTE COUNT 20.54(H) 1.90 - 7.00 K/uL 10/23/2023 6:41 AM T [facility] LABORATORY [facility] LYMPHOCYTES ABSOLUTE 0.00(L) 0.70 - 4.50 K/uL 10/23/2023 6:41 AM CDT [facility] LABORATORY SERVICES - [facility] MONOCYTES ABSOLUTE 5.66(H) 0.10 - 1.30 K/uL 10/23/2023 6:41 AM CDT [facility] LABORATORY SERVICES - . [facility] TOTAL CELLS COUNTED IN DIFF 111 10/23/2023 6:41 AM CDT [facility] LABORATORY SERVICES - . [facility] RBC MORPHOLOGY abnormal 10/23/2023 6:41 AM CDT [facility] LABORATORY SERVICES - [facility] PLATELET EST. Consistent w Count 10/23/2023 6:41 AM CDT [facility] LABORATORY SERVICES - [facility] POIKILOCYTES 1+ /hpf 10/23/2023 6:41 AM CDT [facility] LABORATORY SERVICES - [facility] OVALOCYTES 1+ /hpf 10/23/2023 6:41 AM CDT [facility] LABORATORY SERVICES - [facility] Blood Venipuncture / Unknown 10/23/2023 4:07 AM CDT 10/23/2023 4:10 AM CDT Tana Schaefer PA-C HEMATOLOGY ORDE ftopia [facility] LABORATORY SERVICES - [facility]# [id number] [address] [place] [address] * (ABNORMAL) COMPREHENSIVE METABOLIC PANEL (10/23/2023 4:07 AM CDT) SODIUM 141 136 - 145 mmol/L 10/23/2023 4:44 AM CDT [employer] LABORATORY SERVICES - . [facility] POTASSIUM 3.5 3.5 - 5.0 mmol/L 10/23/2023 4:44 AM CDT [facility] LABORATORY SERVICES - [facility] CHLORIDE 106 98 - 107 mmol/L 10/23/2023 4:44 AM CDT [facility] LABORATORY SERVICES - . [facility] CO2 20(L) 22 - 29 mmol/L 10/23/2023 4:44 AM CDT [facility] LABORATORY SERVICES - . [facility] CALCIUM 9.3 8.6 - 10.2 mg/dL 10/23/2023 4:44 AM CDT [facility] LABORATORY SERVICES - [facility] BUN 23 8 - 23 mg/dL 10/23/2023 4:44 AM [facility] CREATININE 1.04(H) 0.51 - 0.95 mg/dL 10/23/2023 4:44 AM [facility] LABORATORY [facility] Comment:The GFR result is no t clinically significant on patients <18 or >70 years of age. GLUCOSE 153(H) 74 - 99 mg/dL 10/23/2023 4:44 AM [facility] LABORATORY [facility] TOTAL PROTEIN 6.9 6.7 - 8.6 g/dL 10/23/2023 4:44 AM [facility] ALBUMIN 4.0 3.5 - 5.2 g/dL 10/23/2023 4:44 AM [facility] BILIRUBIN TOTAL 0.5 0.2 - 1.1 mg/dL 10/23/2023 4:44 AM [facility] ALKALINE PHOSPHATASE 73 35 - 104 U/L 10/23/2023 4:44 AM [facility] AST 46(H) <33 U/L 10/23/2023 4:44 AM [facility] ALT 16 <34 U/L 10/23/2023 4:44 AM [facility] GFR 55 mL/min/1.7 3 sq meter 10/23/2023 4:44 AM [facility] LABORATORY [facility] Comment:eGFR calculated with 2020 CKD-EPI equation. Vegetarian diet, extremely high or low muscle mass, and may affect results. Cystatin C with Glomerular Filtration Rate is a suitable alternative for these patients. ANION GAP 15 8 - 16 mmol/L 10/23/2023 4:44 AM [facility] Blood Venipuncture / Unknown 10/23/2023 4:07 AM CDT 10/23/2023 4:10 AM [facility] LABORATORY [facility] - 10/23/2023 4:44 AM [facility] Samples containing indocyanine green cause interferences on Total and/or Direct Bilirubin and must not be measured. Tana Schaefer PA-C CHEMISTRY ORDER [place] [facility] LABORATORY SERVICES - [facility] CLMA# [id number] [address] [place] [address] * (ABNORMAL) CBC WITH DIFFERENTIAL (10/23/2023 4:07 AM CDT) WBC 26.2(H) 4.0 - 9.8 K/uL 10/23/2023 4:28 AM CDT [facility] LABORATORY SERVICES - [facility] RBC 3.49(L) 3.90 - 4.90 M/uL 10/23/2023 4:28 AM T [facility] LABORATORY SERVICES - [facility] HEMOGLOBIN 10.7(L) 11.8 - 14.8 g/dL 10/23/2023 4:28 AM T [facility] LABORATORY SERVICES - [facility] HEMATOCRIT 31.7(L) 35.5 - 44.0 % 10/23/2023 4:28 AM CDT [facility] LABORATORY SERVICES - [facility] MCV 90.8 82.0 - 99.0 fL 10/23/2023 4:28 AM CDT [facility] LABORATORY SERVICES - [facility] MCH 30.7 27.2 - 32.6 pg 10/23/2023 4:28 AM CDT [facility] LABORATORY SERVICES - [facility] MCHC 33.8 31.5 - 35.5 g/dL 10/23/2023 4:28 AM CDT [facility] LABORATORY SERVICES - [facility] RDW 14.0 11.5 - 14.5 % 10/23/2023 4:28 AM CDT [facility] LABORATORY SERVICES - [facility] RDW-STDEV 46.8 37.1 - 48.7 fL 10/23/2023 4:28 AM CDT [employer] LABORATORY SERVICES - . [facility] PLATELETS 183 140 - 350 K/uL 10/23/2023 4:28 AM CDT [facility] LABORATORY SERVICES - . [facility] MPV 11.8 9.3 - 12.4 fL 10/23/2023 4:28 AM [facility] LABORATORY SERVICES - [facility] Blood Venipuncture / Unknown 10/23/2023 4:07 AM CDT 10/23/2023 4:10 AM CDT Tana Schaefer PA-C HEMATOLOGY JAMES DIANA [facility] LABORATORY [facility] CLIA# [id number] [address] [place] [address] * (ABNORMAL) POC GLUCOSE (10/23/2023 2:55 AM CDT) GLUCOSE POC 152(H) 74 - 99 mg/dL 10/23/2023 2:55 AM CDT [facility] LABORATORY SERVICES - [facility] SPECIMEN SOURCE, GLUCOSE POC Whole Blood 10/23/2023 2:55 AM CDT [facility] LABORATORY SERVICES [facility] Blood, whole 10/23/2023 2:55 AM CDT 10/23/2023 9:04 AM CDT Edinson Ferrell MD POINT OF CARE TESTIN G Performing Organization Address [facility]/ZIP Co de Phone Number [facility] LABORATORY [facility] CLIA# [id number] [address] [place] [address] * (ABNORMAL) POC GLUCOSE (10/23/2023 2:00 AM CDT) GLUCOSE POC 166(H) 74 - 99 mg/dL 10/23/2023 2:00 AM CDT [facility] LABORATORY SERVICES - [facility] SPECIMEN SOURCE, GLUCOSE POC Whole Blood 10/23/2023 2:00 AM CDT [facility] LABORATORY SERVICES [facility] Blood, whole 10/23/2023 2:00 AM CDT 10/23/2023 9:03 AM CDT Edinson Ferrell MD POINT OF CARE TESTIN G [facility] LABORATORY [facility] CLIA# [id number] [address] [place] [address] * (ABNORMAL) BLOOD GAS ARTERIAL (10/23/2023 1:55 AM CDT) PH BLOOD POC 7.37 7.35 - 7.45 10/23/2023 1:55 AM [facility] [employer] LABORATORY SERVICES [facility] PCO2 POC 34(L) 35 - 48 mm Hg 10/23/2023 1:55 AM [facility] [employer] LABORATORY SERVICES [facility] PO2 POC 133(H) 83 - 108 mm Hg 10/23/2023 1:55 AM [facility] [employer] LABORATORY SERVICES [facility] HCO3 (CALC) POC 20(L) 22 - 26 mmol/L 10/23/2023 1:55 AM [facility] [employer] LABORATORY SERVICES [facility] HEMOGLOBIN POC 10.6(L) 11.8 - 14.8 g/dL 10/23/2023 1:55 AM [facility] [employer] LABORATORY SERVICES [facility] BASE EXCESS POC -5(L) -2 - 3 mmol/L 10/23/2023 1:55 AM [employer] SERVICES [facility] O2 SATURATION POC 99(H) 94 - 98 % 10/23/2023 1:55 AM [employer] LABORATORY SERVICES [facility] HEMATOCRIT POC 32(L) 35 - 44 % 10/23/2023 1:55 AM [employer] LABORATORY SERVICES [facility] Comment:Estimated Value PH TEMP CORRECT 7.37 7.35 - 7.45 10/23/2023 1:55 AM [facility] [employer] LABORATORY SERVICES [facility] PCO2 TEMP CORRECT 34(L) 35 - 48 mm Hg 10/23/2023 1:55 AM [facility] [employer] LABORATORY SERVICES [facility] PO2 TEMP CORRECT 133(H) 83 - 108 mm Hg 10/23/2023 1:55 AM [employer] LABORATORY SERVICES [facility] SPECIMEN SOURCE, GASES POC Arterial 10/23/2023 1:55 AM [employer] SERVICES [facility] COMMENT, GASES POC Responsible Clinical Caregiver notified 10/23/2023 1:55 AM [employer] LABORATORY SERVICES [facility] TCO2 (CALC) POC 21 19 - 24 mmol/L 10/23/2023 1:55 AM [employer] SERVICES [facility] FIO2 30.0 21.0 - 100.0 % 10/23/2023 1:55 AM [employer] LABORATORY SERVICES - [facility] P/F RATIO POC 443 10/23/2023 1:55 AM CDT [employer] LABORATORY SERVICES - . [facility] PEEP POC 5 10/23/2023 1:55 AM CDT [employer] LABORATORY SERVICES - [facility] PS POC 5 10/23/2023 1:55 AM CDT [employer] LABORATORY SERVICES - [facility] PATIENT'S TEMPERATURE POC 37.0 degrees 10/23/2023 1:55 AM CDT [employer] LABORATORY SERVICES - . [facility] PAO2 POC 171 10/23/2023 1:55 AM CDT [employer] LABORATORY SERVICES - [facility] ARTERIAL/ALVEO LAR O2 RATIO 0.7800 10/23/2023 1:55 AM [employer] LABORATORY SERVICES - [facility] Blood, arterial 10/23/2023 1 :55 AM CDT 10/23/2023 1:56 AM CDT Olga STEPHENS ORDERABLES [facility] [employer] [facility] CLMA# [id number] [address] [place] [address] * (ABNORMAL) POC GLUCOSE (10/23/2023 1:01 AM CDT) [facility] Signature GLUCOSE POC 163(H) 74 - 99 mg/dL 10/23/2023 1:01 AM CDT [employer] LABORATORY SERVICES - [facility] SPECIMEN SOURCE, GLUCOSE POC Whole Blood 10/23/2023 1:01 AM [employer] LABORATORY SERVICES - [facility] Blood, whole 10/23/2023 1:01 AM CDT 10/23/2023 9:03 AM CDT Edinson Ferrell MD POINT OF CARE TESTIN G [facility] [employer] [facility] CLIA# [id number] [address] [place] [address] * (ABNORMAL) POC GLUCOSE (10/22/2023 11:57 PM CDT) GLUCOSE POC 154(H) 74 - 99 mg/dL 10/22/2023 11:57 PM CDT [facility] LABORATORY SERVICES - [facility] SPECIMEN SOURCE, GLUCOSE POC Whole Blood 10/22/2023 11:57 PM CDT [facility] LABORATORY SERVICES - [facility] Blood, whole 10/22/2023 11:5 7 PM CDT 10/23/2023 9:03 AM CDT Edinson Ferrell MD POINT OF CARE TESTIN G Performing Organization Address City/[facility]/ZIP Co de Phone Number [facility] CLIA# [id number] [address] [place] [address] * (ABNORMAL) POC GLUCOSE (10/22/2023 10:55 PM CDT) GLUCOSE POC 146(H) 74 - 99 mg/dL 10/22/2023 10:55 PM CDT [facility] LABORATORY [facility] SPECIMEN SOURCE, GLUCOSE POC Whole Blood 10/22/2023 10:55 PM CDT [facility] LABORATORY [facility] Blood, whole 10/22/2023 10:5 5 PM CDT 10/23/2023 9:03 AM CDT Edinson Ferrell MD POINT OF CARE TESTIN G [facility] LABORATORY [facility] CLIA# [id number] [address] [place] [address] * (ABNORMAL) POC GLUCOSE (10/22/2023 9:58 PM CDT) GLUCOSE POC 150(H) 74 - 99 mg/dL 10/22/2023 9:58 PM CDT [facility] LABORATORY SERVICES [facility] SPECIMEN SOURCE, GLUCOSE POC Whole Blood 10/22/2023 9:58 PM CDT [facility] Blood, whole 10/22/2023 9:58 PM CDT 10/23/2023 9:03 AM CDT Edinson Ferrell MD POINT OF CARE TESTIN G [facility] CLIA# [id number] [address] [place] [address] * (ABNORMAL) POC GLUCOSE (10/22/2023 8:53 PM CDT) GLUCOSE POC 141(H) 74 - 99 mg/dL 10/22/2023 8:53 PM CDT [facility] SPECIMEN SOURCE, GLUCOSE POC Whole Blood 10/22/2023 8:53 PM CDT [facility] Blood, whole 10/22/2023 8:53 PM CDT 10/23/2023 9:03 AM CDT Edinson Ferrell MD POINT OF CARE TESTCHRISTY G [facility] CLIA# [id number] [address] [place] [address] * (ABNORMAL) POC GLUCOSE (10/22/2023 7:58 PM CDT) GLUCOSE POC 131(H) 74 - 99 mg/dL 10/22/2023 7:58 PM CDT [facility] - [facility] SPECIMEN SOURCE, GLUCOSE POC Whole Blood 10/22/2023 7:58 PM CDT [facility] Blood, whole 10/22/2023 7:58 PM CDT 10/23/2023 9:03 AM CDT Edinson Ferrell MD POINT OF CARE TESTIN G [facility] CLIA# [id number] [address] [facility] [place] [place] [address] * XR CHEST PA OR AP 1 [...] - 99 mg/dL 10/22/2023 7:06 PM CDT [facility] - [facility] SPECIMEN SOURCE, GLUCOSE POC Whole Blood 10/22/2023 7:06 PM CDT [facility] - [facility] Blood, whole 10/22/2023 7:06 PM CDT 10/23/2023 9:03 AM CDT Edinson Ferrell MD POINT OF CARE TESTCHRISTY Nguyen [facility] CLIA# [id number] [address] [place] [address] * (ABNORMAL) POC GLUCOSE (10/22/2023 6:18 PM CDT) GLUCOSE POC 168(H) 74 - 99 mg/dL 10/22/2023 6:18 PM CDT [facility] SPECIMEN SOURCE, GLUCOSE POC Whole Blood 10/22/2023 6:18 PM CDT [facility] Blood, whole 10/22/2023 6:18 PM CDT 10/23/2023 9:03 AM CDT Edinson Ferrell MD POINT OF CARE TESTCHRISTY Nguyen [facility] [employer] [facility] CLIA# [id number] [address] [place] [address] * (ABNORMAL) BLOOD GAS ARTERIAL (10/22/2023 6:17 PM CDT) PH BLOOD POC 7.45 7.35 - 7.45 10/22/2023 6:17 PM CDT [facility] PCO2 POC 31(L) 35 - 48 mm Hg 10/22/2023 6:17 PM CDT [facility] PO2 POC 285(H) 83 - 108 mm Hg 10/22/2023 6:17 PM [facility] HCO3 (CALC) POC 22 22 - 26 mmol/L 10/22/2023 6:17 PM [facility]AT[facility] SERVICES [facility] HEMOGLOBIN POC 10.5(L) 11.8 - 14.8 g/dL 10/22/2023 6:17 PM [facility]AT[facility] SERVICES [facility] BASE EXCESS POC -2 -2 - 3 mmol/L 10/22/2023 6:17 PM [facility] O2 SATURATION POC 99(H) 94 - 98 % 10/22/2023 6:17 PM [facility] POTASSIUM POC 4.0 3.5 - 4.9 mmol/L 10/22/2023 6:17 PM [facility] HEMATOCRIT POC 32(L) 35 - 44 % 10/22/2023 6:17 PM [facility] Comment:Estimated Value PH TEMP CORRECT 7.45 7.35 - 7.45 10/22/2023 6:17 PM [facility] PCO2 TEMP CORRECT 31(L) 35 - 48 mm Hg 10/22/2023 6:17 PM [facility] PO2 TEMP CORRECT 285(H) 83 - 108 mm Hg 10/22/2023 6:17 PM [facility] SPECIMEN SOURCE, GASES POC Arterial 10/22/2023 6:17 PM [facility] COMMENT, GASES POC Responsible Clinical Caregiver notified 10/22/2023 6:17 PM [facility] TCO2 (CALC) POC 23 19 - 24 mmol/L 10/22/2023 6:17 PM [facility] FIO2 60.0 21.0 - 100.0 % 10/22/2023 6:17 PM [facility] P/F RATIO POC 475 10/22/2023 6:17 PM [facility]ORAT[facility] SERVICES [facility] PEEP POC 5 10/22/2023 6:17 PM CDT [facility] - [facility] SET RATE POC 14 10/22/2023 6:17 PM CDT [facility] - [facility] TIDAL VOLUME POC 500.00 10/22/2023 6:17 PM CDT [facility] - [facility] PATIENT'S TEMPERATURE POC 37.0 degrees 10/22/2023 6:17 PM CDT [facility] - [facility] PAO2 POC 389 10/22/2023 6:17 PM CDT [facility] - [facility] ARTERIAL/ALVEO LAR O2 RATIO 0.7300 10/22/2023 6:17 PM CDT [facility] - [facility] Blood, arterial 10/22/2023 6 :17 PM CDT 10/22/2023 6:19 PM CDT Tana Schaefer PA-C ABG ORDERABLES [facility] - [facility]# [id number] [address] [place] [address] * (ABNORMAL) COMPREHENSIVE METABOLIC PANEL (10/22/2023 6:14 PM CDT) SODIUM 136 136 - 145 mmol/L 10/22/2023 7:13 PM CDT [facility] - . [facility] POTASSIUM 4.0 3.5 - 5.0 mmol/L 10/22/2023 7:13 PM CDT [facility] - . [facility] CHLORIDE 103 98 - 107 mmol/L 10/22/2023 7:13 PM CDT [facility] - . [facility] CO2 20(L) 22 - 29 mmol/L 10/22/2023 7:13 PM CDT [facility] - . [facility] CALCIUM 9.9 8.6 - 10.2 mg/dL 10/22/2023 7:13 PM CDT [facility] - [facility] BUN 17 8 - 23 mg/dL 10/22/2023 7:13 PM CDT [facility] - . [facility] CREATININE 1.01(H) 0.51 - 0.95 mg/dL 10/22/2023 7:13 PM CDT [facility] Comment:The GFR result is no t clinically significant on patients <18 or >70 years of age. GLUCOSE 162(H) 74 - 99 mg/dL 10/22/2023 7:13 PM [facility] TOTAL PROTEIN 6.6(L) 6.7 - 8.6 g/dL 10/22/2023 7:13 PM [facility] ALBUMIN 3.8 3.5 - 5.2 g/dL 10/22/2023 7:13 PM [facility] BILIRUBIN TOTAL 0.4 0.2 - 1.1 mg/dL 10/22/2023 7:13 PM [facility] ALKALINE PHOSPHATASE 70 35 - 104 U/L 10/22/2023 7:13 PM [facility] AST 21 <33 U/L 10/22/2023 7:13 PM [facility] ALT 10 <34 U/L 10/22/2023 7:13 PM [facility] GFR 57 mL/min/1.7 3 sq meter 10/22/2023 7:13 PM [facility] Comment:eGFR calculated with 2020 CKD-EPI equation. Vegetarian diet, extremely high or low muscle mass, and may affect results. Cystatin C with Glomerular Filtration Rate is a suitable alternative for these patients. ANION GAP 13 8 - 16 mmol/L 10/22/2023 7:13 PM [facility] Blood Arterial / Unknown 6:14 PM CDT 10/22/2023 6:25 PM T [facility] LABORATORY [facility] - 10/22/2023 7:13 PM CDT Samples containing indocyanine green cause interferences on Total and/or Direct Bilirubin and must not be measured. Tana Schaefer PA-C CHEMISTRY ORDER [place] [facility] CLIA# [id number] [address] [place] [address] * (ABNORMAL) PROTIME-INR (10/22/2023 6:14 PM CDT) PROTIME 16.5(H) 12.7 - 15.1 Seconds 10/22/2023 7:[address] [facility] INR 1.3(H) 0.9 - 1.1 10/22/2023 7:[address] [facility] Blood Arterial / Unknown 6:14 PM CDT 10/22/2023 6:[address] [facility] - 10/22/2023 7:04 PM CDT INR Therapeutic Range: Adult: ?? 2.0 - 3.0 for pulmonary embolism or prophylaxis against venous ?thrombosis or systemic embolization. 2.0 - 3.0 for patients with tissue heart valves. 2.5 - 3.5 for patients with mechanical heart valves or post OH. Pediatric ??(12 years and under): 1.5 - 3.0 Although the target range in children is not well established, ?INR values of 1.5 - 3.0 are recommended for most patients. ?Higher values have been used in children with prosthetic ?cardiac valves and hereditary clotting disorders. [place] (<3 days) therapeutic ranges have not been established. Tana Schaefer PA-C HEMATOLOGY JAMES DIANA [facility] [employer] [facility] CLIA# [id number] [address] [place] [address] * (ABNORMAL) PTT (10/22/2023 6:14 PM CDT) PTT 38.5(H) 24.4 - 36.4 seconds 10/22/2023 7:[address] [facility] Comment: PTT Therapeutic Range: Heparin Level ? PTT (seconds) <0.10 units/mL ? <53 0.10 - 0.30 units/mL ? 53 - 67 0.30 - 0.70 units/mL* ?67 - 95* 0.70 - 1.00 units/mL ? 95 - 116 *corresponds to therapeutic range for unfractionated heparin Blood Arterial / Unknown 6:14 PM CDT 10/22/2023 6:25 PM CDT Tana Schaefer PA-C HEMATOLOGY JAMES DIANA Performing Organization Address City/State/[facility] Co de Phone Number [facility]# [id number] [address] [place], [place] [id number] * (ABNORMAL) CBC WITH DIFFERENTIAL (10/22/2023 6:14 PM CDT) WBC 17.3(H) 4.0 - 9.8 K/uL 10/22/2023 6:50 PM CDT [facility] RBC 3.41(L) 3.90 - 4.90 M/uL 10/22/2023 6:50 PM CDT [facility] HEMOGLOBIN 10.1(L) 11.8 - 14.8 g/dL 10/22/2023 6:50 PM CDT [facility] HEMATOCRIT 31.0(L) 35.5 - 44.0 % 10/22/2023 6:50 PM CDT [facility] MCV 90.9 82.0 - 99.0 fL 10/22/2023 6:50 PM CDT [facility] MCH 29.6 27.2 - 32.6 pg 10/22/2023 6:50 PM CDT [facility] - [facility] MCHC 32.6 31.5 - 35.5 g/dL 10/22/2023 6:50 PM CDT [facility] - . [facility] RDW 13.9 11.5 - 14.5 % 10/22/2023 6:50 PM CDT [facility] - [facility] RDW-STDEV 45.7 37.1 - 48.7 fL 10/22/2023 6:50 PM CDT [facility] - [facility] PLATELETS 160 140 - 350 K/uL 10/22/2023 6:50 PM CDT [facility] - . [facility] MPV 11.8 9.3 - 12.4 fL 10/22/2023 6:50 PM CDT [facility] - . [facility] NEUTROPHILS 78 % 10/22/2023 6:50 PM CDT [facility] - . [facility] LYMPHOCYTES 5 % 10/22/2023 6:50 PM CDT [facility] - . [facility] MONOCYTES 12 % 10/22/2023 6:50 PM CDT [facility] - [facility] EOSINOPHILS 1 % 10/22/2023 6:50 PM CDT [facility] - [facility] BASOPHILS 0 % 10/22/2023 6:50 PM CDT [facility] - . [facility] IMMATURE GRANULOCYTES 5 % 10/22/2023 6:50 PM CDT [facility] - . [facility] Comment:IG (Immature Granulo cyte) count includes Metamyelocytes, Myelocytes, and Promyelocytes NEUTROPHIL ABSOLUTE 13.42(H) 1.90 - 7.00 K/uL 10/22/2023 6:50 PM CDT [facility] - . [facility] LYMPHOCYTE ABSOLUTE 0.83 0.70 - 4.50 K/uL 10/22/2023 6:50 PM CDT [facility] - . [facility] MONOCYTE ABSOLUTE 2.04(H) 0.10 - 1.30 K/uL 10/22/2023 6:50 PM CDT [facility] - . [facility] EOSINOPHIL ABSOLUTE 0.11 0.00 - 0.70 K/uL 10/22/2023 6:50 PM CDT [facility] - . [facility] BASOPHILS ABSOLUTE 0.04 0.00 - 0.20 K/uL 10/22/2023 6:50 PM CDT [facility] IMMATURE GRANULOCYTES ABSOLUTE 0.83(H) 0.00 - 0.03 K/uL 10/22/2023 6:50 PM CDT [facility] Blood Arterial / Unknown 6:14 PM CDT 10/22/2023 6:25 PM CDT Tana Schaefer PA-C HEMATOLOGY ORDE RABLES [facility] CLIA# [id number] [address] [place] [address] * MAGNESIUM LEVEL (10/22/2023 6:14 PM CDT) MAGNESIUM 1.9 1.6 - 2.4 mg/dL 10/22/2023 7:[address] [facility] Blood Arterial / Unknown 6:14 PM CDT 10/22/2023 6:25 PM CDT Tana Schaefer PA-C CHEMISTRY ORDER [place] Performing Organization Address City/[facility]/ZIP Co de Phone Number [facility] CLMA# [id number] [address] [place] [address] * POC LACTIC ACID (10/22/2023 5:10 PM CDT) LACTIC ACID POC 1.2 <=2.0 mmol/L 10/22/2023 5:10 PM CDT [facility] SPECIMEN SOURCE, GASES POC Arterial 10/22/2023 5:10 PM CDT [facility] COMMENT, GASES POC Responsible Clinical Caregiver notified 10/22/2023 5:10 PM CDT [facility] Blood 10/22/2023 5:10 PM CDT 10/22/2023 5:12 PM CDT Olga Sandhu DO POINT OF CARE TESTIN G [facility] SERVICES [facility]# [id number] [address] [facility] [place] [address] * (ABNORMAL) BLOOD GAS,(INCL. H+H, LYTES, GLUC) (10/22/2023 5:10 PM CDT) [facility] PH BLOOD POC 7.43 7.35 - 7.45 10/22/2023 5:10 PM CDT [facility] PCO2 POC 33(L) 35 - 48 mm Hg 10/22/2023 5:10 PM CDT [facility] PO2 POC 531(H) 83 - 108 mm Hg 10/22/2023 5:10 PM CDT [facility] TCO2 (CALC) POC 23 19 - 24 mmol/L 10/22/2023 5:10 PM CDT [facility] HCO3 (CALC) POC 22 22 - 26 mmol/L 10/22/2023 5:10 PM CDT [facility] SERVICES [facility] O2 SATURATION POC 99(H) 94 - 98 % 10/22/2023 5:10 PM CDT [facility] SERVICES [facility] BASE EXCESS POC -2 -2 - 3 mmol/L 10/22/2023 5:10 PM CDT [facility] SERVICES [facility] HEMOGLOBIN POC 8.1(L) 11.8 - 14.8 g/dL 10/22/2023 5:10 PM T [facility] HEMATOCRIT POC 24(L) 35 - 44 % 10/22/2023 5:10 PM CDT [facility] SERVICES [facility] Comment:Estimated Value GLUCOSE POC 164(H) 74 - 99 mg/dL 10/22/2023 5:10 PM CDT [facility] SODIUM POC 134(L) 135 - 145 mmol/L 10/22/2023 5:10 PM T [facility] POTASSIUM POC 4.3 3.5 - 4.9 mmol/L 10/22/2023 5:10 PM CDT [facility] CALCIUM IONIZED POC 5.7(H) 4.7 - 5.1 mg/dL 10/22/2023 5:10 PM CDT [facility] PH TEMP CORRECT 7.43 7.35 - 7.45 10/22/2023 5:10 PM CDT [facility] SERVICES [facility] PCO2 TEMP CORRECT 33(L) 35 - 48 mm Hg 10/22/2023 5:10 PM CDT [facility] PO2 TEMP CORRECT 531(H) 83 - 108 mm Hg 10/22/2023 5:10 PM CDT [facility] SPECIMEN SOURCE, GASES POC Arterial 10/22/2023 5:10 PM T [facility] PATIENT'S TEMPERATURE POC 37.0 degrees 10/22/2023 5:[address] [facility] COMMENT, GASES POC Responsible Clinical Caregiver notified 10/22/2023 5:10 PM CDT [facility] Blood, arterial 10/22/2023 5 :10 PM CDT 10/22/2023 5:12 PM CDT Olga STEPHENS ORDERABLES [facility]# [id number] [address] [place] [address] * POC LACTIC ACID (10/22/2023 4:29 PM CDT) LACTIC ACID POC 1.4 <=2.0 mmol/L 10/22/2023 4:[address] [facility] SPECIMEN SOURCE, GASES POC Arterial 10/22/2023 4:29 PM CDT [facility] COMMENT, GASES POC Responsible Clinical Caregiver notified 10/22/2023 4:[address] [facility] Blood 10/22/2023 4:29 PM CDT 10/22/2023 4:30 PM CDT Olga Sandhu DO POINT OF CARE TESTIN G [facility]ORATORY SERVICES [facility]# [id number] [address] [facility] [place] [address] [place] [address] * (ABNORMAL) BLOOD GAS,(INCL. H+H, LYTES, GLUC) (10/22/2023 4:29 PM CDT) [facility] PH BLOOD POC 7.42 7.35 - 7.45 10/22/2023 4:29 PM CDT [facility] SERVICES [facility] PCO2 POC 34(L) 35 - 48 mm Hg 10/22/2023 4:29 PM CDT [facility]OR[facility] SERVICES [facility] PO2 POC 538(H) 83 - 108 mm Hg 10/22/2023 4:29 PM CDT [facility] TCO2 (CALC) POC 23 19 - 24 mmol/L 10/22/2023 4:29 PM CDT [facility] HCO3 (CALC) POC 22 22 - 26 mmol/L 10/22/2023 4:29 PM CDT [facility]ORATORY SERVICES [facility] O2 SATURATION POC 99(H) 94 - 98 % 10/22/2023 4:29 PM CDT [facility] SERVICES [facility] BASE EXCESS POC -2 -2 - 3 mmol/L 10/22/2023 4:29 PM T [facility] HEMOGLOBIN POC 8.2(L) 11.8 - 14.8 g/dL 10/22/2023 4:29 PM T [facility] HEMATOCRIT POC 25(L) 35 - 44 % 10/22/2023 4:29 PM CDT [facility] SERVICES [facility] Comment:Estimated Value GLUCOSE POC 134(H) 74 - 99 mg/dL 10/22/2023 4:29 PM CDT [facility] SODIUM POC 135 135 - 145 mmol/L 10/22/2023 4:29 PM CDT [facility] SERVICES [facility] POTASSIUM POC 4.2 3.5 - 4.9 mmol/L 10/22/2023 4:29 PM CDT [facility] CALCIUM IONIZED POC 5.9(H) 4.7 - 5.1 mg/dL 10/22/2023 4:29 PM T [facility] PH TEMP CORRECT 7.42 7.35 - 7.45 10/22/2023 4:29 PM T [facility] PCO2 TEMP CORRECT 34(L) 35 - 48 mm Hg 10/22/2023 4:29 PM CDT [facility] PO2 TEMP CORRECT 538(H) 83 - 108 mm Hg 10/22/2023 4:29 PM T [facility] SPECIMEN SOURCE, GASES POC Arterial 10/22/2023 4:29 PM T [facility] PATIENT'S TEMPERATURE POC 37.0 degrees 10/22/2023 4:29 PM T [facility] COMMENT, GASES POC Responsible Clinical Caregiver notified 10/22/2023 4:29 PM CDT [facility] Blood, arterial 10/22/2023 4 :29 PM CDT 10/22/2023 4:30 PM CDT Olga Sandhu DO ABG ORDERABLES [facility]# [id number] [address] [place] [address] [place] [id number] * TRANSFUSE RED BLOOD CELLS (10/22/2023 3:38 PM CDT) Shin Rosenbaum DO BLOOD TRANSF USION ORDERABLES * POC LACTIC ACID (10/22/2023 3:35 PM CDT) LACTIC ACID POC 1.1 <=2.0 mmol/L 10/22/2023 3:[address] [facility] SPECIMEN SOURCE, GASES POC Arterial 10/22/2023 3:35 PM CDT [facility] COMMENT, GASES POC Responsible Clinical Caregiver notified 10/22/2023 3:35 PM CDT [facility] Blood 10/22/2023 3:35 PM CDT 10/22/2023 3:37 PM CDT Olga Sandhu POINT OF CARE TESTIN G [facility] SERVICES [facility] CLIA# [id number] [address] [facility] [place] [address] * (ABNORMAL) BLOOD GAS,(INCL. H+H, LYTES, GLUC) (10/22/2023 3:35 PM CDT) PH BLOOD POC 7.41 7.35 - 7.45 10/22/2023 3:35 PM CDT [facility] PCO2 POC 37 35 - 48 mm Hg 10/22/2023 3:35 PM CDT [facility] PO2 POC 566(H) 83 - 108 mm Hg 10/22/2023 3:35 PM CDT [facility] TCO2 (CALC) POC 25(H) 19 - 24 mmol/L 10/22/2023 3:35 PM CDT [facility] HCO3 (CALC) POC 24 22 - 26 mmol/L 10/22/2023 3:35 PM CDT [facility] O2 SATURATION POC 99(H) 94 - 98 % 10/22/2023 3:35 PM CDT [facility] BASE EXCESS POC -1 -2 - 3 mmol/L 10/22/2023 3:35 PM CDT [facility] HEMOGLOBIN POC 7.4(L) 11.8 - 14.8 g/dL 10/22/2023 3:35 PM CDT [facility] HEMATOCRIT POC 22(L) 35 - 44 % 10/22/2023 3:35 PM [facility] Comment:Estimated Value GLUCOSE POC 101(H) 74 - 99 mg/dL 10/22/2023 3:35 PM CDT [employer] LABORATORY SERVICES [facility] SODIUM POC 134(L) 135 - 145 mmol/L 10/22/2023 3:35 PM CDT [facility] SERVICES - [facility] POTASSIUM POC 3.9 3.5 - 4.9 mmol/L 10/22/2023 3:35 PM CDT [facility] - [facility] CALCIUM IONIZED POC 4.4(L) 4.7 - 5.1 mg/dL 10/22/2023 3:35 PM CDT [facility] SERVICES - [facility] PH TEMP CORRECT 7.41 7.35 - 7.45 10/22/2023 3:35 PM CDT [facility] SERVICES - [facility] PCO2 TEMP CORRECT 37 35 - 48 mm Hg 10/22/2023 3:35 PM CDT [facility] SERVICES - [facility] PO2 TEMP CORRECT 566(H) 83 - 108 mm Hg 10/22/2023 3:35 PM CDT [facility] SPECIMEN SOURCE, GASES POC Arterial 10/22/2023 3:35 PM CDT [facility] PATIENT'S TEMPERATURE POC 37.0 degrees 10/22/2023 3:35 PM CDT [facility] SERVICES [facility] COMMENT, GASES POC Responsible Clinical Caregiver notified 10/22/2023 3:35 PM CDT [facility] Blood, arterial 10/22/2023 3 :35 PM CDT 10/22/2023 3:37 PM CDT Olga STEPHENS ORDERABLES [facility] [employer] [facility]# [id number] [address] [facility] [id number] * POC LACTIC ACID (10/22/2023 2:43 PM CDT) LACTIC ACID POC 1.3 <=2.0 mmol/L 10/22/2023 2:43 PM CDT [facility] LABORATORY [facility] SPECIMEN SOURCE, GASES POC Arterial 10/22/2023 2:43 PM CDT [facility] LABORATORY SERVICES [facility] COMMENT, GASES POC Responsible Clinical Caregiver notified 10/22/2023 2:43 PM CDT [facility] LABORATORY SERVICES [facility] Blood 10/22/2023 2:43 PM CDT 10/22/2023 2:44 PM CDT Olga Sandhu POINT OF CARE TESTIN G [facility] LABORATORY SERVICES [facility] CLIA# [id number] 5 [place] [address] * (ABNORMAL) BLOOD GAS,(INCL. H+H, LYTES, GLUC) (10/22/2023 2:43 PM CDT) PH BLOOD POC 7.48(H) 7.35 - 7.45 10/22/2023 2:43 PM CDT [facility] LABORATORY SERVICES [facility] PCO2 POC 34(L) 35 - 48 mm Hg 10/22/2023 2:43 PM CDT [facility] LABORATORY SERVICES [facility] PO2 POC 527(H) 83 - 108 mm Hg 10/22/2023 2:43 PM CDT [facility] LABORATORY SERVICES [facility] TCO2 (CALC) POC 26(H) 19 - 24 mmol/L 10/22/2023 2:43 PM CDT [facility] LABORATORY [facility] HCO3 (CALC) POC 25 22 - 26 mmol/L 10/22/2023 2:43 PM CDT [facility] LABORATORY SERVICES [facility] O2 SATURATION POC 99(H) 94 - 98 % 10/22/2023 2:43 PM CDT [facility] LABORATORY SERVICES [facility] BASE EXCESS POC 2 -2 - 3 mmol/L 10/22/2023 2:43 PM T [facility] LABORATORY SERVICES [facility] HEMOGLOBIN POC 9.2(L) 11.8 - 14.8 g/dL 10/22/2023 2:43 PM CDT [facility] LABORATORY SERVICES [facility] HEMATOCRIT POC 28(L) 35 - 44 % 10/22/2023 2:43 PM T [facility] LABORATORY SERVICES [facility] Comment:Estimated Value GLUCOSE POC 102(H) 74 - 99 mg/dL 10/22/2023 2:43 PM CDT [facility] LABORATORY SERVICES [facility] SODIUM POC 136 135 - 145 mmol/L 10/22/2023 2:43 PM CDT [facility] LABORATORY SERVICES - [facility] POTASSIUM POC 4.5 3.5 - 4.9 mmol/L 10/22/2023 2:43 PM CDT [facility] LABORATORY SERVICES - [facility] CALCIUM IONIZED POC 5.0 4.7 - 5.1 mg/dL 10/22/2023 2:43 PM CDT [facility] LABORATORY SERVICES - [facility] PH TEMP CORRECT 7.48(H) 7.35 - 7.45 10/22/2023 2:43 PM CDT [facility] LABORATORY SERVICES - [facility] PCO2 TEMP CORRECT 34(L) 35 - 48 mm Hg 10/22/2023 2:43 PM CDT [facility] LABORATORY SERVICES - [facility] PO2 TEMP CORRECT 527(H) 83 - 108 mm Hg 10/22/2023 2:43 PM CDT [facility] LABORATORY SERVICES - [facility] SPECIMEN SOURCE, GASES POC Arterial 10/22/2023 2:43 PM CDT [facility] LABORATORY SERVICES [facility] PATIENT'S TEMPERATURE POC 37.0 degrees 10/22/2023 2:43 PM CDT [facility] LABORATORY SERVICES - [facility] COMMENT, GASES POC Responsible Clinical Caregiver notified 10/22/2023 2:43 PM CDT [facility] LABORATORY SERVICES - [facility] Blood, arterial 10/22/2023 2 :43 PM CDT 10/22/2023 2:44 PM CDT Olga STEPHENS ORDERABLES [facility] SERVICES [facility]# [id number] [address] [facility] [place] [address] * (ABNORMAL) POC TEG STANDARD A (10/22/2023 1:40 PM CDT) CITRATED KAOLIN REACTION TIME (CK-R) POC 7.8 4.6 - 9.1 min 10/22/2023 1:40 PM CDT [facility] LABORATORY SERVICES [facility] CITRATED KAOLIN ANGLE (CK-A) POC 80.4(H) 63.0 - 78.0 deg 10/22/2023 1:[address] [facility] CITRATED [place]AOLIN MAXIMUM AMPLITUDE(CK-MA ) POC 72(H) 52 - 69 mm 10/22/2023 1:[address] [facility] CITRATED RAPID MAXIMUM AMPLITUDE (LEGAL OFFICE ADMINISTRATOR-MA) POC 73(H) 52 - 70 mm 10/22/2023 1:[address] [facility] CITRATED KAOLIN HEPARINASE REACTION TIME (CKH-RT) POC 6.8 4.3 - 8.3 min 10/22/2023 1:[address] [facility] CITRATE FUNCTIONAL FIBRINOGEN MAX AMPLITUDE, CFF-MA POC 47(H) 15 - 32 mm 10/22/2023 1:[address] [facility] CITRATED FUNCTIONAL FIBRINOGEN (CFF-FLEV) POC 849(H) 278 - 581 mg/dl 10/22/2023 1:[address] [facility] CITRATED KAOLIN KINETICS (CK-K) POC 0.7(L) 0.8 - 2.1 min 10/22/2023 1:[address] [facility] 10/22/2023 1:40 PM CDT 10/22/2023 3:07 PM CDT Olga Sandhu DO POINT OF CARE TESTIN G [facility]# [id number] 5 [facility] [place] [address] * US GUIDE NEEDLE PLACEMENT (10/22/2023 12:58 PM CDT) Narrative 10/22/2023 12:58 PM CDT Order information only. ??Exam was auto-finalized. ?? Edinson Ferrell MD US ORDERABLES * PREPARE RED BLOOD CELLS (10/22/2023 8:41 AM CDT) COMPONENT TYPE [id number] [facility] COMPONENT IDENTIFICATION [id number] [facility] UNIT ABO O [facility] UN[facility] RH POS [facility] CROSSMATCH Compatible [facility] COMPONENT STATUS Transfused ME Y [facility] COMPONENT EXPIRATION DATE/[facility] COMPONENT CODING SYSTEM 5100 [facility] VOLUME, BLOOD PRODUCT 350 [facility] 10/22/2023 8:41 AM CDT Edinson Ferrell MD LAB TRANSFUSION JAMES DIANA Performing Organization Address [facility] Co de Phone Number [facility] LABORATORY SERVICES -- [facility] CLIA# [id number] [address] [facility] [place] [address] * PREPARE RED BLOOD CELLS (10/22/2023 8:41 AM CDT) [facility] COMPONENT TYPE [id number] [facility] COMP[facility] IDENTIFICATION [id number] [facility] UNIT ABO O [facility] UNIT RH POS [facility] CROSSMATCH Compatible [facility] COMPONENT STATUS Returned [facility] COMPONENT EXPIRATION DATE/[facility] COMPONENT CODING SYSTEM 5100 [facility] VOLUME, BLOOD PRODUCT 350 [facility] 10/22/2023 8:41 AM CDT Edinson Ferrell MD LAB TRANSFUSION JAMES DIANA Performing Organization Address [facility] Co de Phone Number [facility] LABORATORY SERVICES -- [facility] CLIA# [id number] [address] [facility] [place] [address] * PREPARE RED BLOOD CELLS (10/22/2023 8:41 AM CDT) COMPONENT TYPE [id number] [facility] COMPONENT IDENTIFICATION [id number] [facility] UNIT ABO O [facility] UN[facility] RH POS [facility] CROSSMATCH Compatible [facility] COMPONENT STATUS Returned [facility] COMPONENT EXPIRATION DATE/[facility] COMPONENT CODING SYSTEM 5100 [employer] [facility] VOLUME, BLOOD PRODUCT 350 [facility] 10/22/2023 8:41 AM CDT Edinson Ferrell MD LAB TRANSFUSION JAMES DIANA Performing Organization Address City/[facility] Co de Phone Number [facility] CLIA# [id number] [facility] [place] [address] [address] * PREPARE RED BLOOD CELLS (10/22/2023 8:41 AM CDT) COMPONENT TYPE [id number] [facility] COMPONENT IDENTIFICATION [id number] [facility] UN[facility] ABO O [facility] UN[facility] RH POS [facility] CROSSMATCH Compatible [facility] COMPONENT STATUS Returned [facility] COMPONENT EXPIRATION DATE/TIME [facility] COMPONENT CODING SYSTEM 5100 [facility] VOLUME, BLOOD PRODUCT 350 [facility] 10/22/2023 8:41 AM CDT Edinson Ferrell MD LAB TRANSFUSION JAMES DIANA [facility] CLIA# [id number] [address] [place] [address] * PREPARE RED BLOOD CELLS (10/22/2023 8:41 AM CDT) COMPONENT TYPE [id number] [facility] COMPONENT IDENTIFICATION [id number] [facility] UNIT ABO O [facility] UNIT RH POS [facility] CROSSMATCH Compatible [facility] COMPONENT STATUS Returned [facility] COMPONENT EXPIRATION DATE/TIME [id number] [facility] COMPONENT CODING SYSTEM [address] [employer] [facility] VOLUME, BLOOD PRODUCT 350 [employer] [facility] 10/22/2023 8:41 AM CDT Edinson Ferrell MD LAB TRANSFUSION JAMES DIANA [facility] CLIA# [id number] [address] [place] [address] * PREPARE RED BLOOD CELLS (10/22/2023 8:41 AM CDT) COMPONENT TYPE [id number] [facility] COMPONENT IDENTIFICATION [id number] [facility] UNIT ABO O [facility] UNIT RH POS [facility] CROSSMATCH Compatible [facility] COMPONENT STATUS Returned [facility] COMPONENT EXPIRATION DATE/TIME [id number] [facility] COMPONENT CODING SYSTEM 5100 [facility] VOLUME, BLOOD PRODUCT 350 [facility] Other, specify 10/22/2023 8: 41 AM CDT Edinson Ferrell MD LAB TRANSFUSION JAMES DIANA [facility] LABORATORY SERVICES -- [facility] CLIA# [id number] [address] [place] [address] * CVOR TRANSESOPHAGEAL STUDY (10/22/2023 8:40 AM CDT) Narrative 10/22/2023 8:40 AM CDT Order Auto Finalized. Please see associated Operative Report/Progress Note/Procedure Note from the same date. Edinson Ferrell MD ECHO ORDERABLES * (ABNORMAL) POC GLUCOSE (10/22/2023 6:24 AM CDT) GLUCOSE POC 103(H) 74 - 99 mg/dL 10/22/2023 6:24 AM CDT [facility] SPECIMEN SOURCE, GLUCOSE POC Whole Blood 10/22/2023 6:24 AM CDT [facility] LABORATORY [facility] Blood, whole 10/22/2023 6:24 AM CDT 10/22/2023 6:51 AM CDT Olga Sandhu DO POINT OF CARE TESTIN G [facility] Coherent Path [facility]# [id number] [address] [place] [address] * (ABNORMAL) CBC WITHOUT DIFFERENTIAL (10/22/2023 1:01 AM CDT) WBC 11.1(H) 4.0 - 9.8 K/uL 10/22/2023 2:39 AM CDT [employer] LABORATORY SERVICES [facility] RBC 3.24(L) 3.90 - 4.90 M/uL 10/22/2023 2:39 AM CDT [employer] LABORATORY SERVICES [facility] HEMOGLOBIN 9.7(L) 11.8 - 14.8 g/dL 10/22/2023 2:39 AM CDT [employer] LABORATORY SERVICES [facility] HEMATOCRIT 29.8(L) 35.5 - 44.0 % 10/22/2023 2:39 AM CDT [facility] LABORATORY SERVICES - [facility] MCV 92.0 82.0 - 99.0 fL 10/22/2023 2:39 AM CDT [facility] LABORATORY SERVICES - [facility] MCH 29.9 27.2 - 32.6 pg 10/22/2023 2:39 AM CDT [facility] LABORATORY SERVICES - [facility] MCHC 32.6 31.5 - 35.5 g/dL 10/22/2023 2:39 AM CDT [facility] LABORATORY SERVICES - [facility] PLATELETS 238 140 - 350 K/uL 10/22/2023 2:39 AM CDT [facility] LABORATORY SERVICES - [facility] MPV 12.4 9.3 - 12.4 fL 10/22/2023 2:39 AM CDT [facility] LABORATORY SERVICES - [facility] RDW 13.7 11.5 - 14.5 % 10/22/2023 2:39 AM CDT [facility] LABORATORY SERVICES - [facility] RDW-STDEV 46.5 37.1 - 48.7 fL 10/22/2023 2:39 AM T [facility] LABORATORY SERVICES - [facility] Blood Venipuncture / Unknown 10/22/2023 1:01 AM CDT 10/22/2023 2:13 AM CDT Sarbjit Brooks MD HEMATOLOGY ORDERABL ES [facility] LABORATORY SERVICES [facility]# [id number] [address] [place] [address] [id number] * (ABNORMAL) BASIC METABOLIC PANEL (10/22/2023 1:01 AM CDT) SODIUM 136 136 - 145 mmol/L 10/22/2023 3:05 AM CDT [facility] LABORATORY SERVICES - [facility] POTASSIUM 3.4(L) 3.5 - 5.0 mmol/L 10/22/2023 3:05 AM CDT [facility] LABORATORY SERVICES - . [facility] CHLORIDE 99 98 - 107 mmol/L 10/22/2023 3:05 AM CDT [facility] LABORATORY SERVICES - . [facility] CO2 26 22 - 29 mmol/L 10/22/2023 3:05 AM CDT [facility] LABORATORY SERVICES - . [facility] CALCIUM 9.3 8.6 - 10.2 mg/dL 10/22/2023 3:05 AM [facility] BUN 20 8 - 23 mg/dL 10/22/2023 3:05 AM [facility] CREATININE 1.32(H) 0.51 - 0.95 mg/dL 10/22/2023 3:05 AM [facility] Comment:The GFR result is no t clinically significant on patients <18 or >70 years of age. GLUCOSE 123(H) 74 - 99 mg/dL 10/22/2023 3:[address] [facility] GFR 41 mL/min/1.7 3 sq meter 10/22/2023 3:05 AM [facility] Comment:eGFR calculated with 2020 CKD-EPI equation. Vegetarian diet, extremely high or low muscle mass, and may affect results. Cystatin C with Glomerular Filtration Rate is a suitable alternative for these patients. ANION GAP 11 8 - 16 mmol/L 10/22/2023 3:[address] [facility] Blood Venipuncture / Unknown 10/22/2023 1:01 AM CDT 10/22/2023 2:12 AM CDT Olga Sandhu DO CHEMISTRY ORDERABLES [facility]# [id number] [address] [facility] [place] [address] * (ABNORMAL) PTT (10/21/2023 8:44 PM CDT) PTT 69.4(H) 24.4 - 36.4 seconds 10/21/2023 9:[address] [facility] Comment: PTT Therapeutic Range: Heparin Level ? PTT (seconds) <0.10 units/mL ? <53 0.10 - 0.30 units/mL ? 53 - 67 0.30 - 0.70 units/mL* ?67 - 95* 0.70 - 1.00 units/mL ? 95 - 116 *corresponds to therapeutic range for unfractionated heparin Blood Venipuncture / Unknown 10/21/2023 8:44 PM CDT 10/21/2023 8:51 PM CDT Monroe Howell MD HEMATOLOGY ORDERABLE S [facility] LABORATORY SERVICES - [facility]# [id number] [address] [facility] [place] [address] * URINALYSIS WITH REFLEX MICROSCOPIC (10/21/2023 8:04 PM CDT) COLOR UA Yellow Pale to Dark Yellow 10/21/2023 9:35 PM CDT [employer] LABORATORY SERVICES - . [facility] CLARITY UA Clear Clear 10/21/2023 9:35 PM CDT [employer] LABORATORY SERVICES - . [facility] SPECIFIC GRAVITY UA 1.016 1.003 - 1.035 10/21/2023 9:35 PM CDT [employer] LABORATORY SERVICES - . [facility] PH UA 6.0 5.0 - 8.0 10/21/2023 9:35 PM CDT [employer] LABORATORY SERVICES - . [facility] LEUKOCYTE ESTERASE UA Negative Negative 10/21/2023 9:35 PM CDT [employer] LABORATORY SERVICES - . [place] NITRITE UA Negative Negative 10/21/2023 9:35 PM CDT [employer] LABORATORY SERVICES - . [facility] PROTEIN UA Negative Negative 10/21/2023 9:35 PM CDT [employer] LABORATORY SERVICES - . [facility] GLUCOSE UA Negative Negative 10/21/2023 9:35 PM CDT [employer] LABORATORY SERVICES - . [facility] KETONES UA Negative Negative 10/21/2023 9:35 PM CDT [employer] LABORATORY SERVICES - . [facility] UROBILINOGEN UA Normal <2.0 mg/dL 9:[address] [facility] BILIRUBIN UA Negative Negative 10/21/2023 9:[address] [facility] BLOOD UA Negative Negative 10/21/2023 9:[address] [facility] Urine URINE SPECIMEN OBTAINED BY CLEAN CATCH PROCEDURE / Unknown Collection / Unknown 10/21/2023 8:04 PM CDT 10/21/2023 9:07 PM CDT Celia Orozco NP URINE ORDERABLES Performing Organization Address [facility] Co de Phone Number [facility] CLIA# [id number] [address] [facility] [place] [address] * (ABNORMAL) PTT (10/21/2023 3:05 PM CDT) PTT 66.1(H) 24.4 - 36.4 seconds 10/21/2023 3:[address] [facility] Comment: PTT Therapeutic Range: Heparin Level ? PTT (seconds) <0.10 units/mL ? <53 0.10 - 0.30 units/mL ? 53 - 67 0.30 - 0.70 units/mL* ?67 - 95* 0.70 - 1.00 units/mL ? 95 - 116 *corresponds to therapeutic range for unfractionated heparin Blood Venipuncture / Unknown 10/21/2023 3:05 PM CDT 10/21/2023 3:09 PM CDT Monroe Howell MD HEMATOLOGY ORDERABLE S [facility] LABORATORY SERVICES - [facility]# [id number] [facility] [place] [address] * PREPARE RED BLOOD CELLS (10/21/2023 10:22 AM CDT) COMPONENT TYPE [id number] [facility] COMPONENT IDENTIFICATION [id number] [facility] UNIT ABO O [facility] UNIT RH POS [facility] CROSSMATCH Compatible [employer] [facility] COMPONENT STATUS Returned [facility] -- [facility] COMPONENT EXPIRATION DATE/TIME [employer] LAB[facility]ATORY SERVICES -- [facility] COMPONENT CODING SYSTEM [address] [employer] [facility]ORY [facility] VOLUME, BLOOD PRODUCT 350 [facility] 10/21/2023 10:2 2 AM CDT Celia Orozco ADVICE NURSE LAB TRANSFUSION JAMES DIANA [employer] LABORATORY SERVICES -- [facility]# [id number] [address] [place] [address] * PREPARE RED BLOOD CELLS (10/21/2023 10:22 AM CDT) COMPONENT TYPE [id number] [facility] COMPONENT IDENTIFICATION [id number] [facility] UNIT ABO O [facility] UNIT RH POS [facility] CROSSMATCH Compatible [employer] [facility] SERVICES -- [facility] COMPONENT STATUS Returned [facility] COMPONENT EXPIRATION DATE/TIME [employer] LABORATORY SERVICES -- [facility] COMPONENT CODING SYSTEM [address] [employer] [employer] VOLUME, BLOOD PRODUCT 350 [employer] LAB[facility]ATORY SERVICES -- [facility] Other, specify 10/21/2023 10 :22 AM CDT Celia Orozco ADVICE NURSE LAB TRANSFUSION JAMES DIANA [facility] LABORATORY [facility]# [id number] [address] [place] [address] * (ABNORMAL) PTT (10/21/2023 6:46 AM CDT) PTT 100.7(H) 24.4 - 36.4 seconds 10/21/2023 7:30 AM CDT [facility] [employer] [facility] Comment: PTT Therapeutic Range: Heparin Level ? PTT (seconds) <0.10 units/mL ? <53 0.10 - 0.30 units/mL ? 53 - 67 0.30 - 0.70 units/mL* ?67 - 95* 0.70 - 1.00 units/mL ? 95 - 116 *corresponds to therapeutic range for unfractionated heparin Blood Venipuncture / Unknown 10/21/2023 6:46 AM CDT 10/21/2023 6:59 AM CDT Olga Sandhu DO HEMATOLOGY ORDERABLE S [facility]# [id number] [address] [place] [address] * (ABNORMAL) CBC WITHOUT DIFFERENTIAL (10/21/2023 6:46 AM CDT) WBC 8.9 4.0 - 9.8 K/uL 10/21/2023 7:18 AM CDT [facility] [employer] [facility] RBC 3.36(L) 3.90 - 4.90 M/uL 10/21/2023 7:18 AM CDT [facility] LABORATORY SERVICES - [facility] HEMOGLOBIN 9.9(L) 11.8 - 14.8 g/dL 10/21/2023 7:18 AM CDT [facility] LABORATORY SERVICES - . [place] HEMATOCRIT 31.1(L) 35.5 - 44.0 % 10/21/2023 7:18 AM CDT [facility] - . [facility] MCV 92.6 82.0 - 99.0 fL 10/21/2023 7:18 AM CDT [facility] - . [facility] MCH 29.5 27.2 - 32.6 pg 10/21/2023 7:18 AM T [facility] - . [facility] MCHC 31.8 31.5 - 35.5 g/dL 10/21/2023 7:18 AM T [facility] - . [facility] PLATELETS 231 140 - 350 K/uL 10/21/2023 7:18 AM T [facility] - . [facility] MPV 11.7 9.3 - 12.4 fL 10/21/2023 7:18 AM CDT [facility] - . [facility] RDW 13.7 11.5 - 14.5 % 10/21/2023 7:18 AM T [facility] RDW-STDEV 46.5 37.1 - 48.7 fL 10/21/2023 7:18 AM T [facility] . [facility] Blood Venipuncture / Unknown 10/21/2023 6:46 AM CDT 10/21/2023 6:59 AM CDT Sarbjit Brooks MD HEMATOLOGY ORDERABL ES [facility] CLIA# [id number] [facility] [place] [address] [place] [address] * (ABNORMAL) BASIC METABOLIC PANEL (10/21/2023 6:46 AM CDT) SODIUM 136 136 - 145 mmol/L 10/21/2023 8:03 AM CDT [facility] POTASSIUM 3.6 3.5 - 5.0 mmol/L 10/21/2023 8:03 AM [facility] CHLORIDE 99 98 - 107 mmol/L 10/21/2023 8:03 AM [facility] CO2 24 22 - 29 mmol/L 10/21/2023 8:03 AM [facility] CALCIUM 9.2 8.6 - 10.2 mg/dL 10/21/2023 8:03 AM [facility] BUN 15 8 - 23 mg/dL 10/21/2023 8:03 AM [facility] CREATININE 0.94 0.51 - 0.95 mg/dL 10/21/2023 8:03 AM [facility] Comment:The GFR result is no t clinically significant on patients <18 or >70 years of age. GLUCOSE 107(H) 74 - 99 mg/dL 10/21/2023 8:03 AM [facility] GFR >60 mL/min/1.7 3 sq meter 10/21/2023 8:03 AM [facility] Comment:eGFR calculated with 2020 CKD-EPI equation. Vegetarian diet, extremely high or low muscle mass, and may affect results. Cystatin C with Glomerular Filtration Rate is a suitable alternative for these patients. ANION GAP 13 8 - 16 mmol/L 10/21/2023 8:03 AM [facility] Blood Venipuncture / Unknown 10/21/2023 6:46 AM CDT 10/21/2023 6:59 AM CDT Olga Sandhu DO CHEMISTRY ORDERABLES [facility]# [id number] [address] [facility] [place] [id number] * (ABNORMAL) PTT (10/20/2023 10:05 PM CDT) PTT 64.7(H) 24.4 - 36.4 seconds 10/20/2023 10:[address] [facility] Comment: PTT Therapeutic Range: Heparin Level [...] DO HEMATOLOGY ORDERABLE S Performing Organization Address City/State/[facility] Co de Phone Number [facility]# [id number] [address] * (ABNORMAL) PTT (10/20/2023 3:49 PM CDT) PTT 77.8(H) 24.4 - 36.4 seconds 10/20/2023 4:[address] [facility] Comment: PTT Therapeutic Range: Heparin Level ? PTT (seconds) <0.10 units/mL ? <53 0.10 - 0.30 units/mL ? 53 - 67 0.30 - 0.70 units/mL* ?67 - 95* 0.70 - 1.00 units/mL ? 95 - 116 *corresponds to therapeutic range for unfractionated heparin Blood Venipuncture / Unknown 10/20/2023 3:49 PM CDT 10/20/2023 4:37 PM CDT Olga Edson DO HEMATOLOGY ORDERABLE S [employer] LABORATORY SERVICES - [facility] CLIA# [id number] [address] [facility] [place] [address] * URINALYSIS WITH REFLEX MICROSCOPIC (10/20/2023 7:49 AM CDT) COLOR UA Pale Yellow Pale to Dark Yellow 10/20/2023 8:20 AM CDT [employer] LABORATORY SERVICES - [facility] CLARITY UA Clear Clear 10/20/2023 8:20 AM CDT [employer] LABORATORY SERVICES - [facility] SPECIFIC GRAVITY UA 1.011 1.003 - 1.035 10/20/2023 8:20 AM CDT [employer] LABORATORY SERVICES - [facility] PH UA 6.0 5.0 - 8.0 10/20/2023 8:20 AM CDT [employer] LABORATORY SERVICES - [facility] LEUKOCYTE ESTERASE UA Negative Negative 10/20/2023 8:20 AM CDT [employer] LABORATORY SERVICES - [facility] NITRITE UA Negative Negative 10/20/2023 8:20 AM CDT [employer] LABORATORY SERVICES - [facility] PROTEIN UA Negative Negative 10/20/2023 8:20 AM T [employer] LABORATORY SERVICES - . [facility] GLUCOSE UA Negative Negative 10/20/2023 8:20 AM CDT [employer] LABORATORY SERVICES - . [facility] KETONES UA Negative Negative 10/20/2023 8:20 AM CDT [employer] LABORATORY SERVICES - [facility] UROBILINOGEN UA Normal <2.0 mg/dL 8:20 AM CDT [employer] LABORATORY SERVICES - [facility] BILIRUBIN UA Negative Negative 10/20/2023 8:20 AM CDT [employer] LABORATORY SERVICES - [facility] BLOOD UA Negative Negative 10/20/2023 8:[address] [facility] Urine URINE SPECIMEN OBTAINED BY CLEAN CATCH PROCEDURE / Unknown Collection / Unknown 10/20/2023 7:49 AM CDT 10/20/2023 8:09 AM CDT Tana Schaefer PA-C URINE ORDERABLE S [facility] [employer] [facility] CLIA# [id number] [address] [place] [address] * XR CHEST PA AND LATERAL 2 VW (10/20/2023 7:38 AM CDT) Anatomical Region Laterality Modality Chest Computed Radiogr aphy 10/20/2023 7:38 AM CDT Impressions 10/20/2023 3:01 PM CDT IMPRESSION: Stable chest radiograph. DICTATION LOCATION: [address] ?? Narrative 10/20/2023 3:01 PM CDT PA [...] limits. IMPRESSION: Stable chest radiograph. DICTATION LOCATION: [address] Tana Schaefer PA-C DIAGNOSTIC IMAG ING ORDERABLES * (ABNORMAL) PTT (10/20/2023 7:07 AM CDT) [facility] PTT 86.1(H) 24.4 - 36.4 seconds 10/20/2023 7:[address] [facility] Comment: PTT Therapeutic Range: Heparin Level [...] DO HEMATOLOGY ORDERABLE S Performing Organization Address City/State/[facility] Co de Phone Number [facility]# [id number] [address] [place] [address] * (ABNORMAL) CBC WITHOUT DIFFERENTIAL (10/20/2023 1:05 AM CDT) [facility] WBC 9.2 4.0 - 9.8 K/uL 10/20/2023 1:[address] [facility] RBC 3.15(L) 3.90 - 4.90 M/uL 10/20/2023 1:[address] [facility] HEMOGLOBIN 9.5(L) 11.8 - 14.8 g/dL 10/20/2023 1:[address] [facility] HEMATOCRIT 28.8(L) 35.5 - 44.0 % 10/20/2023 1:56 AM CDT [facility] LABORATORY SERVICES - . [facility] MCV 91.4 82.0 - 99.0 fL 10/20/2023 1:56 AM CDT [facility] LABORATORY SERVICES - [facility] MCH 30.2 27.2 - 32.6 pg 10/20/2023 1:56 AM CDT [facility] LABORATORY SERVICES - [facility] MCHC 33.0 31.5 - 35.5 g/dL 10/20/2023 1:56 AM CDT [facility] LABORATORY SERVICES - [facility] PLATELETS 221 140 - 350 K/uL 10/20/2023 1:56 AM CDT [facility] LABORATORY SERVICES - . [facility] MPV 11.9 9.3 - 12.4 fL 10/20/2023 1:56 AM CDT [facility] LABORATORY SERVICES - . [facility] RDW 13.9 11.5 - 14.5 % 10/20/2023 1:56 AM CDT [facility] LABORATORY SERVICES - [facility] RDW-STDEV 46.5 37.1 - 48.7 fL 10/20/2023 1:56 AM T [facility] LABORATORY SERVICES - [facility] Blood Venipuncture / Unknown 10/20/2023 1:05 AM CDT 10/20/2023 1:34 AM CDT Sarbjit Brooks MD HEMATOLOGY ORDERABL ES [facility]# [id number] [address] [facility] [place] [address] * (ABNORMAL) PTT (10/20/2023 1:05 AM CDT) PTT 68.0(H) 24.4 - 36.4 seconds 10/20/2023 1:56 AM CDT [facility] LABORATORY SERVICES - [facility] Comment: PTT Therapeutic Range: Heparin Level ? PTT (seconds) <0.10 units/mL ? <53 0.10 - 0.30 units/mL ? 53 - 67 0.30 - 0.70 units/mL* ?67 - 95* 0.70 - 1.00 units/mL ? 95 - 116 *corresponds to therapeutic range for unfractionated heparin Blood Venipuncture / Unknown 10/20/2023 1:05 AM CDT 10/20/2023 1:34 AM CDT Olga Sandhu DO HEMATOLOGY ORDERABLE S [facility] LABORATORY SERVICES [facility] CLIA# [id number] [address] [place] [address] * (ABNORMAL) BASIC METABOLIC PANEL (10/20/2023 1:05 AM CDT) SODIUM 136 136 - 145 mmol/L 10/20/2023 2:18 AM CDT [employer] LABORATORY SERVICES - [facility] POTASSIUM 3.8 3.5 - 5.0 mmol/L 10/20/2023 2:18 AM CDT [facility] LABORATORY SERVICES - [facility] CHLORIDE 100 98 - 107 mmol/L 10/20/2023 2:18 AM CDT [facility] LABORATORY SERVICES - [facility] CO2 27 22 - 29 mmol/L 10/20/2023 2:18 AM CDT [facility] LABORATORY SERVICES - [facility] CALCIUM 9.5 8.6 - 10.2 mg/dL 10/20/2023 2:18 AM CDT [employer] LABORATORY SERVICES - . [facility] BUN 20 8 - 23 mg/dL 10/20/2023 2:18 AM CDT [facility] LABORATORY SERVICES - . [facility] CREATININE 0.87 0.51 - 0.95 mg/dL 10/20/2023 2:18 AM CDT [employer] LABORATORY SERVICES - [facility] Comment:The GFR result is no t clinically significant on patients <18 or >70 years of age. GLUCOSE 104(H) 74 - 99 mg/dL 10/20/2023 2:18 AM CDT [facility] LABORATORY SERVICES - [facility] GFR >60 mL/min/1.7 3 sq meter 10/20/2023 2:18 AM T [facility] LABORATORY SERVICES - [facility] Comment:eGFR calculated with 2020 CKD-EPI equation. Vegetarian diet, extremely high or low muscle mass, and may affect results. Cystatin C with Glomerular Filtration Rate is a suitable alternative for these patients. ANION GAP 9 8 - 16 mmol/L 10/20/2023 2:18 AM CDT [facility] LABORATORY SERVICES - [facility] Blood Venipuncture / Unknown 10/20/2023 1:05 AM CDT 10/20/2023 1:33 AM CDT Olga Sandhu DO CHEMISTRY ORDERABLES Performing Organization Address City/[facility]/ZIP Co de Phone Number [facility] LABORATORY [facility]# [id number] [address] [place] [address] * TYPE AND SCREEN (10/20/2023 1:05 AM CDT) ABO GROUP O 10/20/2023 3:24 AM T [facility] LABORATORY SERVICES -- [facility] RH (D) TYPE Positive 10/20/2023 3:24 AM CDT [facility] LABORATORY SERVICES -- [facility] ANTIBODY SCREEN Negative 10/20/2023 3:24 AM CDT [facility] LABORATORY SERVICES -- [facility] Blood Venipuncture / Unknown 10/20/2023 1:05 AM CDT 10/20/2023 1:33 AM CDT Tana Schaefer PA-C BLOOD BANK JAMES DIANA [facility] LABORATORY SERVICES -- [facility] CLIA# [id number] [address] [place] [address] * HEMOGLOBIN A1C (10/20/2023 1:05 AM CDT) HEMOGLOBIN A1C 5.6 <5.7 % 10/20/2023 2:[address] [facility] EST. AVG GLUCOSE, A1C 114 mg/dL 10/20/2023 2:[address] [facility] Blood Venipuncture / Unknown 10/20/2023 1:05 AM CDT 10/20/2023 1:[address] [facility] - 10/20/2023 2:05 AM CDT HGB A1C INTERPRETATION NORMAL: ? <5.7% PRE-DIABETES: 5.7 - 6.4% DIABETES: ? 6.5% OR GREATER Tana Schaefer PA-C CHEMISTRY ORDER [facility]# [id number] [address] [address] * (ABNORMAL) PTT (10/19/2023 5:39 PM CDT) PTT 37.5(H) 24.4 - 36.4 seconds 10/19/2023 6:[address] [facility] Comment: PTT Therapeutic Range: Heparin Level ? PTT (seconds) <0.10 units/mL ? <53 0.10 - 0.30 units/mL ? 53 - 67 0.30 - 0.70 units/mL* ?67 - 95* 0.70 - 1.00 units/mL ? 95 - 116 *corresponds to therapeutic range for unfractionated heparin Blood Venipuncture / Unknown 10/19/2023 5:39 PM CDT 10/19/2023 5:47 PM CDT Edinson Ferrell MD HEMATOLOGY ORDERABLE S [facility]# [id number] [address] [place] [address] * EKG 12-LEAD (10/19/2023 2:35 PM CDT) 10/19/2023 2:35 PM CDT Narrative INTERFACE SYSTEM - 10/19/2023 2:51 PM CDT ? [facility] ? [address] [place] [address] ? Test Date: ?2023-10-19 Pat Name: ? ZEE MARTINEZ ? Department: ?? 62 ?Room: ? G023 1 Gender: ? Female ? 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 : ?1945 ? Requested By: SARBJIT Martinez Order Number: [id number] ? Ashley HENDERSON: ?? Raghu Joaquin ? Measurements Intervals ?[place] ? Rate: ? 67 ? P: ?97 CA: ? 202 ?QRS: ?33 QRSD: ? 87 ? T: ?43 QT: ? 327 ? QTc: ?347 ? Interpretive Statements SINUS RHYTHM SEPTAL MYOCARDIAL INFARCTION , PROBABLY OLD Electronically Signed On 10-19-2023 14:51:50 CDT by Raghu Joaquin Procedure Note Provider, 10/19/2023 [facility] [address] 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 ??Normal LV filling pressure 3. ??No significant aortic valve gradient Plan: 1. ??Begin removing air from radial band on arrival from laboratory miller as per protocol, max band time 45 minutes if no bleeding. 2. ??Medical therapy for CAD, CTS consult and admission for CABG Procedure Details CARDIAC CATHETERIZATION FINAL REPORT Date of Procedure: 10/19/2023 Wellness Program Manager: Sarbjit Brooks MD Access: right radial artery [...] air from radial band on arrival from laboratory mill[facility] as per protocol, max band time 45 minutes if no bleeding. 2. Medical therapy for CAD, CTS consult and admission for CABG 10/19/2023 10:12 AM Sarbjit Brooks MD Sarbjit Brooks MD CUP CATH ORDERABLES [facility] CLIA #[id number] [address] [address] * (ABNORMAL) MANUAL DIFFERENTIAL (10/19/2023 9:58 AM CDT) SEGMENTED NEUTROPHILS 55 % 10/19/2023 11:00 AM CDT [facility] LABORATORY SERVICES - . [facility] LYMPHOCYTES RELATIVE 10(L) 43 - 53 % 10/19/2023 11:00 AM CDT [facility] LABORATORY SERVICES - . [facility] ATYPICAL LYMPHOCYTES RELATIVE 2 0 - 5 % 10/19/2023 11:00 AM CDT [facility] LABORATORY SERVICES - . [facility] MONOCYTES RELATIVE 33 % 10/19/2023 11:00 AM CDT [facility] LABORATORY SERVICES - . [facility] EOSINOPHILS RELATIVE 1 % 10/19/2023 11:00 AM CDT [facility] LABORATORY SERVICES - . [facility] NEUTROPHILS ABSOLUTE COUNT 6.22 1.90 - 7.00 K/uL 10/19/2023 11:00 AM CDT [facility] LABORATORY SERVICES - . [facility] LYMPHOCYTES ABSOLUTE 1.14 0.70 - 4.50 K/uL 10/19/2023 11:00 AM CDT [facility] LABORATORY SERVICES - [facility] MONOCYTES ABSOLUTE 3.73(H) 0.10 - 1.30 K/uL 10/19/2023 11:00 AM CDT [facility] LABORATORY SERVICES - [facility] EOSINOPHILS ABSOLUTE 0.10 0.00 - 0.70 K/uL 10/19/2023 11:00 AM T [facility] LABORATORY SERVICES - [facility] TOTAL CELLS COUNTED IN DIFF 110 10/19/2023 11:00 AM T [facility] LABORATORY SERVICES - [facility] RBC MORPHOLOGY abnormal 10/19/2023 11:00 AM T [facility] LABORATORY SERVICES - [facility] PLATELET EST. Consistent w Count 10/19/2023 11:00 AM T [facility] LABORATORY SERVICES - [facility] POIKILOCYTES 1+ /hpf 10/19/2023 11:00 AM T [facility] LABORATORY SERVICES - [facility] OVALOCYTES 1+ /hpf 10/19/2023 11:00 AM T [facility] LAB[facility]ATORY SERVICES - [facility] Blood Venipuncture / Unknown 10/19/2023 9:58 AM CDT 10/19/2023 10:07 AM CDT Sarbjit Brooks MD HEMATOLOGY ORDERABL ES COM [facility] LABORATORY SERVICES [facility]# [id number] [address] [facility] [place] [address] * LIPID PANEL (10/19/2023 9:58 AM CDT) CHOLESTEROL 151 <200 mg/dL 10/19/2023 11:47 AM T [facility] LABORATORY SERVICES - [facility] TRIGLYCERIDE 83 <150 mg/dL 10/19/2023 11:47 AM CDT [facility]ATORY SERVICES - [facility] HDL 44 40 - 59 mg/dL 10/19/2023 11:47 AM T [facility] LABORATORY SERVICES - . [facility] LDL CALCULATED 90 <100 mg/dL 10/19/2023 11:47 AM T [facility] LABORATORY SERVICES - . [facility] NON-HDL CHOLESTEROL 107 <130 mg/dL 10/19/2023 11:47 AM T [facility] LABORATORY SERVICES - [facility] Blood Venipuncture / Unknown 10/19/2023 9:58 AM CDT 10/19/2023 10:07 AM CDT Narrative [facility] LABORATORY [facility] - 10/19/2023 11:47 AM CDT TOTAL CHOLESTEROL [...] . Sarbjit Brooks MD CHEMISTRY ORDERABLE S [facility]# [id number] [facility] [place] [address] * (ABNORMAL) PROTIME-INR (10/19/2023 9:58 AM CDT) PROTIME 15.3(H) 12.7 - 15.1 Seconds 10/19/2023 10:30 AM CDT [facility] LABORATORY [facility] INR 1.2(H) 0.9 - 1.1 10/19/2023 10:30 AM CDT [facility] [employer] [facility] Blood Venipuncture / Unknown 10/19/2023 9:58 AM CDT 10/19/2023 10:07 AM CDT Narrative [facility] LABORATORY SERVICES - [facility] - 10/19/2023 10:30 AM CDT INR Therapeutic Range: Adult: ?? 2.0 - 3.0 for pulmonary embolism or prophylaxis against venous ?thrombosis or systemic embolization. 2.0 - 3.0 for patients with tissue heart valves. 2.5 - 3.5 for patients with mechanical heart valves or post [place]. Pediatric ??(12 years and under): 1.5 - 3.0 Although the target range in children is not well established, ?INR values of 1.5 - 3.0 are recommended for most patients. ?Higher values have been used in children with prosthetic ?cardiac valves and hereditary clotting disorders. (<3 days) therapeutic ranges have not been established. Sarbjit Brooks MD HEMATOLOGY ORDERABL ES [facility] LABORATORY SERVICES [facility]# [id number] [address] [place] [address] * (ABNORMAL) CBC WITH DIFFERENTIAL (10/19/2023 9:58 AM CDT) [facility] Signature WBC 11.4(H) 4.0 - 9.8 K/uL 10/19/2023 10:16 AM CDT [facility] LABORATORY SERVICES [facility] RBC 3.44(L) 3.90 - 4.90 M/uL 10/19/2023 10:16 AM CDT [facility] LABORATORY SERVICES [facility] HEMOGLOBIN 10.2(L) 11.8 - 14.8 g/dL 10/19/2023 10:16 AM CDT [facility] LABORATORY [facility] HEMATOCRIT 31.5(L) 35.5 - 44.0 % 10/19/2023 10:16 AM CDT [facility] LABORATORY [facility] MCV 91.6 82.0 - 99.0 fL 10/19/2023 10:16 AM CDT [facility] LABORATORY [facility] MCH 29.7 27.2 - 32.6 pg 10/19/2023 10:16 AM CDT [facility] LABORATORY SERVICES - [facility] MCHC 32.4 31.5 - 35.5 g/dL 10/19/2023 10:16 AM CDT [facility] LABORATORY SERVICES - [facility] RDW 13.9 11.5 - 14.5 % 10/19/2023 10:16 AM CDT [facility] LABORATORY SERVICES - . [facility] RDW-STDEV 46.4 37.1 - 48.7 fL 10/19/2023 10:16 AM T [facility] LABORATORY SERVICES - [facility] PLATELETS 247 140 - 350 K/uL 10/19/2023 10:16 AM T [facility] LABORATORY SERVICES - . [facility] MPV 11.7 9.3 - 12.4 fL 10/19/2023 10:16 AM [facility] LABORATORY SERVICES - . [facility] Blood Venipuncture / Unknown 10/19/2023 9:58 AM CDT 10/19/2023 10:07 AM CDT Sarbjit Brooks MD HEMATOLOGY ORDERABL ES [facility] LABORATORY SERVICES - [facility] CLIA# [id number] [address] [place], [place] [address] * (ABNORMAL) COMPREHENSIVE METABOLIC PANEL (10/19/2023 9:58 AM CDT) SODIUM 138 136 - 145 mmol/L 10/19/2023 11:47 AM [facility] LABORATORY SERVICES - [facility] POTASSIUM 3.1(L) 3.5 - 5.0 mmol/L 10/19/2023 11:47 AM T [facility] LABORATORY SERVICES - [facility] CHLORIDE 98 98 - 107 mmol/L 10/19/2023 11:47 AM T [facility] LABORATORY SERVICES - [facility] CO2 29 22 - 29 mmol/L 10/19/2023 11:47 AM [facility] LABORATORY SERVICES - [facility] CALCIUM 10.0 8.6 - 10.2 mg/dL 10/19/2023 11:47 AM T [facility] LABORATORY SERVICES - [facility] BUN 22 8 - 23 mg/dL 10/19/2023 11:47 AM T [facility] LABORATORY SERVICES - [facility] CREATININE 1.06(H) 0.51 - 0.95 mg/dL 10/19/2023 11:47 AM [facility] Comment:The GFR result is no t clinically significant on patients <18 or >70 years of age. GLUCOSE 113(H) 74 - 99 mg/dL 10/19/2023 11:47 AM [facility] TOTAL PROTEIN 7.9 6.7 - 8.6 g/dL 10/19/2023 11:47 AM [facility] ALBUMIN 4.4 3.5 - 5.2 g/dL 10/19/2023 11:47 AM [facility] BILIRUBIN TOTAL 0.7 0.2 - 1.1 mg/dL 10/19/2023 11:47 AM [facility] ALKALINE PHOSPHATASE 83 35 - 104 U/L 10/19/2023 11:47 AM [facility] AST 14 <33 U/L 10/19/2023 11:47 AM [facility] ALT 7 <34 U/L 10/19/2023 11:47 AM [facility] GFR 53 mL/min/1.7 3 sq meter 10/19/2023 11:47 AM [facility] Comment:eGFR calculated with 2020 CKD-EPI equation. Vegetarian diet, extremely high or low muscle mass, and may affect results. Cystatin C with Glomerular Filtration Rate is a suitable alternative for these patients. ANION GAP 11 8 - 16 mmol/L 10/19/2023 11:47 AM [facility] [employer] [facility] Blood Venipuncture / Unknown 10/19/2023 9:58 AM T 10/19/2023 10:07 AM [facility] - 10/19/2023 11:47 AM [facility] Samples containing indocyanine green cause interferences on Total and/or Direct Bilirubin and must not be measured. Sarbjit Brooks MD CHEMISTRY ORDERABLE S [facility] [employer] [facility]# [id number] [address] [place] [address] documented in this encounter Visit Diagnoses Diagnosis Pre-op testing Preoperative examination, unspecified Chronic diastolic congestive heart failure Chronic diastolic heart failure S/P CABG (coronary artery bypass graft) Postsurgical aortocoronary bypass status Abnormal cardiovascular stress test Other nonspecific abnormal [...] / Temperature, Give if Temp 100.4, Routine amiodarone (CORDARONE) tablet 200 mg 200 mg, Oral, EVERY 8 HOURS, First dose on Sun10/22/23 at 2100, Until Discontinued, Routine Given 10/30/2023 1:37 PM CDT 200 mg Given 10/30/2023 5:29 AM CDT 200 mg Given 10/29/2023 8:32 PM CDT 200 mg apixaban (ELIQUIS) tablet 5 mg 5 mg, Oral, TWO TIMES DAILY, First dose on Sun10/24/23 at 0900, Until Discontinued, Routine, Indication: Non-valvular A Fib Given 10/30/2023 5:29 AM CDT 5 mg Given 10/29/2023 6:16 PM CDT 5 mg Given 10/29/2023 6:22 AM CDT 5 mg aspirin (ECOTRIN EC) tablet 81 mg [...] on Sun10/30/23 at 2100, Until Discontinued, Routine dextrose 5% - sodium chloride 0.9% infusion [...] Given 10/29/2023 6:21 AM CDT 100 mg fentaNYL PF (SUBLIMAZE) 50 mcg/mL injection ONE TIME PRN, Starting on Sun10/19/23 at 1114, Until Sun10/19/23 at 1138, Routine, Intra-Procedure (Invasive Cardiology) Given 10/19/2023 11:14 AM CDT 25 mcg glucagon HCL 1 mg/mL injection 1 mg 1 mg, IM, SEE ADMIN INSTRUCTIONS, Starting on Sun10/23/23 at 0759, Until Sun10/30/23 at 1930, Routine heparin injection ONE TIME PRN, Starting on Sun10/19/23 at 1123, Until Sun10/19/23 at 1138, Routine, Intra-Procedure (Invasive Cardiology) Given 10/19/2023 11:23 AM CDT 3,000 Units iopamidoL (ISOVUE-300) 61% injection (drawn from multi-use bulk pack) ONE TIME PRN, Starting on Sun10/19/23 at 1136, Until Sun10/19/23 at 1138, Routine, Intra-Procedure (Invasive Cardiology) Given 10/19/2023 11:36 AM CDT 55 mL lidocaine 2 % (XYLOCAINE) injection ONE TIME PRN, Starting on Sun10/19/23 at 1120, Until Sun10/19/23 at 1138, Routine, Intra-Procedure (Invasive Cardiology) Given 10/19/2023 11:20 AM CDT 3 mL Wrist, Right melatonin disintegrating tablet 5 mg 5 mg, Oral, NIGHTLY PRN, Starting on Sun10/27/23 at 0740, Until Sun10/30/23 at 1930, Insomnia, Routine Given 10/29/2023 10:43 PM CDT 5 mg metoprolol tartrate (LOPRESSOR) tablet 25 mg 25 mg, Oral, TWO TIMES DAILY, First dose on Sun10/27/23 at 0645, Until Discontinued, Routine Given 10/30/2023 5:29 AM CDT 25 mg Given 10/29/2023 6:16 PM CDT 25 mg Given 10/29/2023 6:22 AM CDT 25 mg midazolam (VERSED) injection ONE TIME PRN, Starting on Sun10/19/23 at 1114, Until Sun10/19/23 at 1138, Routine, Intra-Procedure (Invasive Cardiology) Given 10/19/2023 11:14 AM CDT 1 mg morphine 4 mg/mL injection 2 mg 2 mg, IV, EVERY 4 HOURS PRN, Starting on Sun10/23/23 at 0830, Until Sun10/30/23 at 1930, Pain (See admin instructions), Routine Given 10/23/2023 12:22 PM CDT 2 mg nitroglycerin in 5 % dextrose (TRIDIL) 200 mcg in sodium chloride 0.9% 2 mL injection ONE TIME PRN, Starting on Sun10/19/23 at 1126, Until Sun10/19/23 at 1138, Routine, Intra-Procedure (Invasive Cardiology) Given 10/19/2023 11:26 AM CDT olmesartan (BENICAR) tablet 40 mg 40 mg, [...] PM CDT 5 mg pantoprazole (PROTONIX) tablet 40 mg 40 mg, Oral, DAILY BEFORE BREAKFAST, First dose on Sun10/23/23 at 0900, Until Discontinued, Routine, Indication: Gastroesophageal reflux disease (GERD) Given 10/30/2023 5:29 AM CDT 40 mg Given 10/29/2023 6:22 AM CDT 40 mg Given 10/28/2023 5:44 AM CDT 40 mg prochlorperazine (COMPAZINE) injection 5 mg 5 mg, IV, EVERY 4 HOURS PRN, Starting on 10/27/23 at 1020, Until Sun10/30/23 at 1930, Nausea, Routine Given 10/27/2023 10:25 AM CDT 5 mg simethicone chewable tablet 80 mg 80 mg, Oral, EVERY 6 HOURS PRN, Starting on Sun10/28/23 at 1015, Until Sun10/30/23 at 1930, Gas, Routine Given 10/30/2023 2:36 PM CDT 80 mg Given 10/30/2023 1:37 PM CDT 80 mg Given 10/28/2023 8:11 PM CDT 80 mg sodium chloride 0.9% infusion IV, at 125 mL/hr, PRE-PROCEDURE CONTINUOUS, Starting on Sun10/19/23 at 1000, Until Sun10/19/23 at 1813, Routine, Pre-Procedure (Invasive Cardiology) Restarted 10/19/2023 11:13 AM CDT 125 mL/hr 125 mL/h r New Bag 10/19/2023 10:33 AM CDT 125 mL/hr verapamiL (ISOPTIN) 2.5 mg, nitroglycerin in 5 % dextrose (TRIDIL) 100 mcg SOLUTION ONE TIME PRN, Starting on Sun10/19/23 at 1121, Until Sun10/19/23 at 1138, Routine, Intra-Procedure (Invasive Cardiology) Given 10/19/2023 11:21 AM CDT documented in this encounter Active and Recently Administered Medications Times are shown in CDT. Scheduled Medication Order 10/28/2023 10/29/2023 10/30/2023 acetaminophen (TYLENOL) tablet 650 mg (CANCELED) 650 mg, Oral, EVERY 4 HOURS, First dose on Sun10/23/23 at 0845, Until Discontinued, Routine 0058 (Given - Provider: Sadie Headley RN)0544 (Given - Provider: Sadie Headley RN)0833 (Given - Provider: Nicole Mtz RN)1200 (Refused - Provider: Nicole Mtz, RN)1600 (Refused - Provider: Nicole Mtz, RN)2000 (Refused - Provider: Kait Fajardo RN) 0000 (Refused - Provider: Kait Fajardo, TUNDE)0400 (Refused - Provider: Kait Fajardo, TUNDE)0800 (Refused - Provider: Karma Palm, RN) amiodarone (CORDARONE) tablet 200 mg 200 mg, Oral, EVERY 8 HOURS, First dose on Sun10/22/23 at 2100, Until Discontinued, Routine 0544 (Given - Provider: Sadie Headely RN)1221 (Given - Provider: Nicole Mtz, TUNDE)2010 (Given - Provider: Kait Fajardo RN) 0622 (Given - Provider: Kait Fajardo RN)1247 (Given - Provider: Karma Palm RN)203 (Given - Provider: Roseanne Tucker RN) 0529 (Given - Provider: Chloé Barrera RN)1337 (Given - Provider: Karma Palm RN) apixaban (ELIQUIS) tablet 5 mg 5 mg, Oral, TWO TIMES DAILY, First dose on Sun10/24/23 at 0900, Until Discontinued, Routine, Indication: Non-valvular A Fib 0544 (Given - Provider: Sadie Headley RN)1737 (Given - Provider: Nicole Mtz, RN) 06 (Given - Provider: Kait Fajardo, TUNDE)1815 (Given - Provider: Karma Palm RN) 528 (Given - Provider: Chloé Barrera, TUNDE) aspirin (ECOTRIN EC) tablet 81 mg 81 mg, Oral, DAILY, First dose on Sun10/25/23 at 0600, Until Discontinued, Routine 543 (Given - Provider: Sadie Headley RN) 620 [...] on Sun10/23/23 at 1800, Until Discontinued, Routine 05 (Given - Provider: Sadie Headley RN)1738 (Given - Provider: Nicole Mtz RN) 06 (Given - Provider: Kait Fajardo, RN)1815 (Given - Provider: Karma Palm RN) 05 (Given - Provider: Chloé Barrera RN) glucagon HCL 1 mg/mL injection 1 mg [...] Palm RN) 05 (Given - Provider: Chloé Barrera RN) naloxone (NARCAN) 0.4 mg/mL injection 0.1-0.4 mg [...] Fajardo RN) 0529 (Given - Provider: Chloé Barrera RN) pantoprazole (PROTONIX) tablet 40 mg 40 mg, Oral, DAILY BEFORE BREAKFAST, First dose on Sun10/23/23 at 0900, Until Discontinued, Routine, Indication: Gastroesophageal reflux disease (GERD) 0544 (Given - Provider: Sadie Headley RN) 06 (Given - Provider: Kait Fajardo RN) 05 (Given - Provider: Chloé Barrera RN) PRN [...] 5 mg, Oral, NIGHTLY PRN, Starting on 10/27/23 at 0740, Until Sun10/30/23 at 1930, Insomnia, [...] Nicole Mtz RN)2240 (Given - Provider: Kait Fajardo, TUNDE) 0641 (Given - Provider: Kait Fajardo, TUNDE)1129 (Given - Provider: Karma Palm RN) 1003 (Given - Provider: Karma Palm RN) oxyCODONE (ROXICODONE) tablet 5 mg 5 mg, Oral, EVERY 4 HOURS PRN, Starting on 10/23/23 at 1217, Until 10/30/23 at 1930, Pain (See admin instructions), Routine [...] Arash) documented in this encounter Care Teams Unstacker Relationship Specialty Start Date End Date Aliza Bain MD [address] [place] [address] PCP - General Family Practice 11/22/21 documented as of this encounter
--- OUTSIDE RECORDS SUMMARY | 2024-07-01 00:41 | XMS_ITS | Encounter Summary ---
Author Organization [facility] Address [address] [place] [address] Care Team Providers Care Copy Center Specialist Name Role Phone Aliza Bain MD Primary Care Provider Encounter Details Date Type Department Care Team (Latest Contact Info) Description 10/03/2023 11:55 AM CDT - 10/03/2023 11:59 PM CDT Hospital Encounter [facility] Non Invasive Cardiology [address] [place] [phone] Kiel Vasquez MD [address] [facility] [address] [place] [address] Discharge Disposition: Home or Self [...] and Family Not on file 07/29/2020 Attends [employer] Not on file 07/29 Do you [...] things needed for daily living? No 07/29/2020 Sex and Gender Information Value Date Recorded [...] 40 MG tab1 tab by mouth daily amLODIPine (NORVASC) 10 mg tablet Take 1 Tablet (10 mg) by mouth daily. 90 Tablet 09/25/2023 10/30/2023 hydroCHLOROthiazide 25 mg tablet TAKE 1 TABLET BY MOUTH EVERY DAY 05/07/2020 10/30/2023 documented as of this encounter Procedure Notes * Fritz Reza MD - 10/20/2023 1:43 AM CDTAssociated Order(s): HOLTER MONITOR [place], [place] [address] [employer] Chief Report CSN: [id number] DATE OF SERVICE: ORDERING PROVIDER Kiel Vasquez MD. ENROLLMENT 10/03/2023 through 10/16/2023 INDICATION Heart failure. IMPRESSION Baseline rhythm is sinus rhythm. There were roughly 10 patient-triggered events with symptoms of short of breath, none indicated, took medication, lightheaded, dizzy, heart racing where the predominant rhythm was sinus rhythm, sinus bradycardia, or sinus tachycardia with a minimum heart rate of 59.There were 3 auto-triggered events that were available for review which corresponded to 1 episode on 10/08/2023 around 12:08 which corresponded to a narrow complex tachycardia which could represent ashort run of SVT or possibly atrial flutter. TD:MEDQ DID: [id number] Dictated by: Fritz Reza MD CC: Kiel Vasquez MD documented in this encounter Plan of Treatment Upcoming Encounters Date Type Department Care Team (Late st Contact Info) Description 2024 11:00 AM REGIONAL DIRECTOR Appointment [facility] [address] [place] [address] 07/21/2024 9:45 AM REGIONAL DIRECTOR Appointment [facility]n [facility] [address] [place] [address] Kiel Vasquez MD [address] [place] [address] 07/21/2024 9:53 AM REGIONAL DIRECTOR Hospital Encounter [facility] [address] [place] [address] Kiel Vasquez MD [address] [place] [address] Paroxysmal A-fib 07/21/2024 9:53 AM REGIONAL DIRECTOR - 07/21/2024 11:46 AM REGIONAL DIRECTOR Surgery [facility] [address] [place] [phone] Kiel Vasquez MD [address] [place] [address] Left atrial appendage closure percutaneous 07/28/2024 8:30 AM REGIONAL DIRECTOR Office Visit [facility] Oncology and Hematology - [place] [address] [phone] Nahid Hickman MD [address] [address] 09/09/2024 1:00 PM CDT Office Visit [facility] Heart and Vascular At [address] [place] [address] Kiel Vasquez MD [facility] [address] [facility] [address] [place] [address] 12/16/2024 11:00 AM CDT Office Visit [facility] HEART AND VASCULAR EP AT [address] [place] [address] Demetrius Bowling DNP [facility] [address] [facility] [address] [place] [address] 02/05/2025 10:45 AM CDT Telephone Check Up [facility] Heart and Vascular At [facility] [address] [facility] [address] [place] [address] 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 FNP [address] [place] [address] documented as of this encounter Procedures Procedure Name Priority Date/Time Associated Diagnosis Comments HOLTER MONITOR 10/20/2023 1:43 AM CDT documented in this encounter Results * HOLTER MONITOR (10/20/2023 1:43 AM CDT) Narrative Procedure Note Fritz Reza MD - 10/20/2023 1:43 AM CDT [place], [place] [address] [employer] Chief Report CSN: [id number] DATE OF SERVICE: ORDERING PROVIDER Kiel Vasquez MD. ENROLLMENT 10/03/2023 through 10/16/2023 INDICATION Heart failure. IMPRESSION Baseline rhythm is sinus rhythm. There were roughly 10 patient-triggeredevents with symptoms of short of breath, none indicated, took medication,lightheaded, dizzy, heart racing where the predominant rhythm was sinusrhythm, sinus bradycardia, or sinus tachycardia with a minimum heart rateof 59. There were 3 auto-triggered events that were available for reviewwhich corresponded to 1 episode on 10/08/2023 around 12:08 whichcorresponded to a narrow complex tachycardia which could represent a shortrun of SVT or possibly atrial flutter. TD:MEDQ DID:[id number] Dictated by: Fritz Reza MD CC: Kiel Vasquez MD Fritz Reza MD CARDIAC SERVICES ORD ERABLES [facility] HEART AND VASCULAR CLIA #[id number] [address] [facility], [facility] [address] [place] [address] documented in this encounter Visit Diagnoses Not on filedocumented in this encounter Care Teams Copy Center Specialist Relationship Specialty Start Date End Date Aliza Bain MD [address] [place] [address] PCP - General Family Practice 11/22/21 documented as of this encounter
--- OUTSIDE RECORDS SUMMARY | 2024-07-01 00:41 | XMS_ITS | Encounter Summary ---
Author Organization [facility] Address [address] [place] [address] Care Team Providers Care [employer] Wiring Technician Name Role Phone Aliza Bain MD Primary Care Provider Reason for Visit * Reason Onset Date Comments Question 10/18/2023 Encounter Details Date Type Department Care Team (Late st Contact Info) Description 10/18/2023 Telephone [facility] Heart and Vascular At [place] [address] [facility] [address] [place] [address] Kiel Vasquez MD [facility] [address] [facility] [address] [place] [address] Question Social History Tobacco Use Types Packs/Day [...] encounter Miscellaneous Notes * Telephone Encounter - Alana Barnett RN - 10/18/2023 11:29 AM CDT Pt wanting to confirm her cardiac cath time. Informed her to arrive at 9 AM, verbalizes understanding. * Telephone Encounter - Josselyn Wray - 10/18/2023 11:18 AM CDT Pt returned call, please call again. thanks * Telephone Encounter - Alana Barnett RN - 10/18/2023 11:09 AM CDT Left Voicemail for pt to call back. Direct number provided. * Telephone Encounter - Valarie Díaz - 10/18/2023 10:57 AM CDT Patient has questions about her [facility] scheduled for tomorrow morning. Please call patient at [phone].Thank you. documented in this encounter Plan of Treatment Upcoming Encounters Date Type Department Care Team (Late st Contact Info) Description 2024 11:00 AM STAINED GLASS ARTIST Appointment [facility] [address] [place] [address] 07/21/2024 9:45 AM STAINED GLASS ARTIST Appointment [facility] Electrodynamicist [address] [place] [address] Kiel Vasquez MD [address] [facility] [address] [place] [address] 07/21/2024 9:53 AM STAINED GLASS ARTIST Hospital Encounter [facility] Electrodynamicist [address] [place] [address] Kiel Vasquez MD [address] [facility] [address] [place] [address] Paroxysmal A-fib 07/21/2024 9:53 AM STAINED GLASS ARTIST - 07/21/2024 11:46 AM STAINED GLASS ARTIST Surgery [facility] Electrodynamicist [address] [place] [address] Kiel Vasquez MD [address] [facility] [address] [place] [address] Left atrial appendage closure percutaneous 07/28/2024 8:30 AM STAINED GLASS ARTIST Office Visit [facility] Oncology and Hematology - [place] [address] [place] [address] Nahid Hickman MD [address] [facility] [address] [place] [address] 09/09/2024 1:00 PM CDT Office Visit [facility] Heart and Vascular At [address] [place] [address] Kiel Vasquez MD [facility] [address] [facility] [address] [place] [address] 12/16/2024 11:00 AM CDT Office Visit [facility] HEART AND VASCULAR EP AT [address] [place] [address] Demetrius Bowling DNP [address] [place] [address] 2014 [place] [address] 02/05/2025 10:45 AM CDT Telephone Check Up [facility] Heart and Vascular At [address] [place] [address] 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, WEIGHT INSPECTOR [facility] [place] [address] documented as of this encounter Visit Diagnoses Not on filedocumented in this encounter Care Teams [employer] Wiring Technician Relationship Specialty Start Date End Date Aliza Bain MD [address] [place] [address] PCP - General Family Practice 11/22/21 documented as of this encounter
--- OUTSIDE RECORDS SUMMARY | 2024-07-01 00:41 | XMS_ITS | Encounter Summary ---
Author Organization [facility] Address [address] [place] [address] Care Team Providers Care Health Club Attendant Name Role Phone Aliza Bain MD Primary Care Provider Reason for Referral * Nuclear Medicine (Routine) - Closed Specialty Diagnoses / Procedures Referred By Contac t Referred To Contact Radiology Diagnoses Chronic diastolic congestive heart failure New onset atrial fibrillation Benign hypertension Procedures NM PHARMACOLOGICAL STRESS TEST Kiel Vasquez MD [address] [facility] [address] [place] [address] [facility] [address] [facility] [place] [address] Referral ID Status Reason Start Date Expiration Date Visits Re quested Visits Authorized [id number] Closed 09/25/2023 10/25/2024 1 1 Reason for Visit * Nuclear Medicine (Routine) - Closed Specialty Diagnoses / Procedures Referred By Contac t Referred To Contact Radiology Diagnoses Chronic diastolic congestive heart failure New onset atrial fibrillation Benign hypertension Procedures NM PHARMACOLOGICAL STRESS TEST Kiel Vasquez MD [address] [place] [facility] [address] [place] [address] [facility] [address] [place] [address] Referral ID Status Reason Start Date Expiration Date Visits Re quested Visits Authorized [id number] Closed 09/25/2023 10/25/2024 1 1 Encounter Details Date Type Department Care Team (Latest Contact Info) Description 10/03/2023 11:55 AM CDT - 10/03/2023 11:59 PM CDT Hospital Encounter [facility] Nuclear Medicine [address] [place] [address] Kiel Vasquez MD [address] [facility] [address] [place] [address] Discharge Disposition: Home or Self [...] and Family Not on file 07/29/2020 Attends [employer] Services Not on file 07/29 Do you [...] as of this encounter Procedure Notes * Yocasta Romero RN - 10/03/2023 1:45 PM CDT Images from the original note were not included. [facility] Lexiscan Test Protocol [facility] Approved by: [facility] - Medical Executive Committee Approval Date: 11/02/2022 ORDERS ARE ENTERED ???PER PROTOCOL?? Enter the protocol in the patient's electronic health record using Seerrase: .lexiscanprotocol Nursing Communication Orders: Prior to testing and During test: If not already initiated, insert 24-18 gauge peripheral IV to Saline lock with an extension set. Prep patient's chest using skin prep and place electrodes on patient. Patients with excessive chesthair may require shaving. o Continuous cardiac monitoring with BP and 12-Lead EKG every minute during the test. Recovery Period Continuous EKG monitoring, BP and 12-Lead EKG every two (2) minutes post Lexiscan. Following this, observe without EKG monitoring until any symptoms resolve. If during recovery the patient experiences severe headache, nausea/vomiting, severe abdominal pain,notify the physician to obtain an order for Aminophylline. Once administered, observe patient untilcomplaint of symptoms resolve. Medication Orders: Sodium chloride 0.9% (normal saline) flush 5 mLs PRN for saline lock or medication administration. Lexiscan Test - Administer the following in the order listed: Lexiscan (regadenosine) 0.4 mg IV over approximately ten (10) seconds, one time. Flush with 5 mLs of Sodium Chloride 0.9% immediately after the injection of Lexiscan Bladder Changer to administer the radionuclide myocardial perfusion imaging agent 10-20 seconds after the saline flush. o Aminophylline 100mg IV PRN one time only, for side effects of Lexiscan administration: nausea, vomiting, chest pain, shortness of breath, blood pressure with systolic <90, headache, blurred vision, abdominal cramping, tachycardia, dizziness, or numbness to extremities. documented in this encounter Plan of Treatment Upcoming Encounters Date Type Department Care Team (Late st Contact Info) Description 2024 11:00 AM PEARL DIGGER Appointment [facility] [address] [facility] [address] [place] [address] 07/21/2024 9:45 AM PEARL DIGGER Appoint[address] [facility] Installer Inspector Final [address] [place] [facility] [place] [address] Kiel Vasquez MD [address] [facility] [address] [place] [address] 07/21/2024 9:53 AM PEARL DIGGER Hospital Encounter [facility] Installer Inspector Final [address] [place] [address] Kiel Vasquez MD [address] [facility] [address] [place] [address] Paroxysmal A-fib 07/21/2024 9:53 AM PEARL DIGGER - 07/21/2024 11:46 AM PEARL DIGGER Surgery [facility] Installer Inspector Final [address] [place] [address] Kiel Vasquez MD [address] [facility] [address] [place] [address] Left atrial appendage closure percutaneous 07/28/2024 8:30 AM PEARL DIGGER Office Visit [facility] Oncology and Hematology - [place] [address] [place] [phone] Nahid Hickman MD [address] [address] 09/09/2024 1:00 PM CDT Office Visit [facility] Heart and Vascular At [address] [place] [address] Kiel Vasquez MD [address] [facility] [address] [place] [address] 12/16/2024 11:00 AM CDT Office Visit [facility] HEART AND VASCULAR EP AT [address] [place] [address] Demetrius Bowling DNP [facility] [address] [facility] [address] [place] [address] 02/05/2025 10:45 AM CDT Telephone Check Up [facility] Heart and Vascular At [facility] [address] [facility] [address] [place] [address] 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, CAT [address] [place] [address] documented as of this encounter Procedures Procedure Name Priority Date/Time Associated Diagnosis Comments NM PHARMACOLOGICAL STRESS TEST Routine 10/03/2023 2:29 PM CDT Chronic diastolic congestive heart failure New onset atrial fibrillation Benign hypertension documented in this encounter Results * NM PHARMACOLOGICAL STRESS TEST (10/03/2023 2:29 PM CDT) Narrative 10/03/2023 2:30 PM CDT Order information only. ??Exam was auto-finalized. ?? Kiel Vasquez MD NM ORDERABLES documented in this encounter Visit Diagnoses Diagnosis Chronic diastolic congestive heart failure Chronic diastolic heart failure New onset atrial fibrillation Atrial fibrillation Benign hypertension Essential hypertension, benign Paroxysmal atrial fibrillation- Primary Atrial fibrillation Paroxysmal A-fib Atrial fibrillation Paroxysmal A-fib Atrial fibrillation documented in this encounter Administered Medications Inactive Administered Medications - up to 3 most recent administrations Medication Order MAR Action Action Date Dose Rate Site aminophylline 250 mg/10 mL injection 100 mg 100 mg, IV, ONE TIME ONLY, 1 dose, On Sun10/03/23 at 1430, Routine Given 10/03/2023 2:21 PM CDT 100 mg regadenoson (LEXISCAN) 0.4 mg/5 mL injection 0.4 mg, IV, INTRA-PROCEDURE ONCE, 1 dose, Starting on Sun10/03/23 at 1403, Until Sun10/03/23 at 1410, Routine Given 10/03/2023 2:10 PM CDT 0.4 mg documented in this encounter Care Teams Health Club Attendant Relationship Specialty Start Date End Date Aliza Bain MD [address] [place] [address] PCP - General Family Practice 11/22/21 documented as of this encounter
--- OUTSIDE RECORDS SUMMARY | 2024-07-01 00:41 | XMS_ITS | Encounter Summary ---
Author Organization [facility] Address [address] [place] [address] Care Team Providers Care Roller Name Role Phone Aliza Bain MD Primary Care Provider Reason for Visit * Reason Onset Date Comments Left Heart Cath Instructions 10/04/2023 Encounter Details Date Type Department Care Team (Late st Contact Info) Description 10/04/2023 Telephone [facility] Heart and Vascular At [place] [address] [place] [address] Kiel Vasquez MD [facility] [address] [facility] [address] [place] [address] Left Heart Cath Instructions Social History Tobacco Use Types Packs/Day Years [...] any clubs o r organizations such as religion groups, unions, fraternal or athletic groups, or [...] encounter Miscellaneous Notes * Telephone Encounter - Gisela Esquivel RN - 10/04/2023 8:29 AM CDT Patient notified of stress test results, cath scheduled, pt verbalizes understanding. Lab orders faxed to [facility] [phone]. Cardiac Catheterization Your physician has recommended a cardiac catheterization. This procedure identifies plaque in the heart arteries and assesses other heart functions. One of the three following scenarios may occur based upon the results of the procedure: If minimal plaque is found in the arteries, it may be treated with medication and risk-factor modification. If plaque is preventing blood flow, the doctor may insert a stent. A stent is a metal circular wirethat will be inflated by a balloon to move the plaque against the mark of the artery and allow additional blood flow. If multiple plaque deposits are identified, the physician may recommend surgery. Prior to the procedure, IV medication will be given to assist with relaxation and comfort and bloodmay be drawn. You will be responsive and able to follow commands. Lidocaine will be injected into the upper thigh or wrist to numb the area. A sheath (similar to an IV) will be placed in the femoral or radial artery to allow access to the arterial system. X-rays will reveal pictures of the blood flow through the arteries as dye is injected. Appropriate treatment will be provided based upon reviewof the images. Two to six hours of bed rest is typical following the procedure. Please plan to spend the entire day at the hospital.(98% still go home the same day) An overnight hospital stay is possible if a stent is inserted. If surgery is recommended, scheduling will be determined based on urgency. INSTRUCTIONS: You are scheduled for Cardiac Catheterization on Sunday, October 15, 2023 at 11:00 am. Please arrive at the [facility] (2nd floor) admitting department, the room right off the elevator, at 9:00 am. Please start taking a 81 mg Aspirin daily if you are not already. Then increase to 4, 81 mg tabletsthe morning of the cath. Please hold your Eliquis 10/12, 10/13, 10/14. Please get your blood drawn by 10/12/23.. These are non fasting and you can go to any [facility] lab.(BMP,CBC,INR) - Nothing to eat or drink after midnight. - You MAY take your medications in the morning with a sip of water - You will need to have a service parts driver arranged to bring you and take you back home. - No driving for 24-48 hours following the procedure - Bring an overnight bag in case you have to stay, and a list of your current medications(you can leave the bag in your car) Sincerely, TUNDE Higgins * Telephone Encounter - Gisela Esquivel RN - 10/04/2023 8:29 AM CDT ----- Message from Kiel Vasquez MD sent at 10/03/2023 4:41 PM CDT ----- Stress test shows she might have a blockage in an artery in [facility] cath Thanks J documented in this encounter Plan of Treatment Upcoming Encounters Date Type Department Care Team (Late st Contact Info) Description 2024 11:00 AM LINER MACHINE OPERATOR HELPER Appointment [facility] [address] [place] [address] 07/21/2024 9:45 AM LINER MACHINE OPERATOR HELPER Appointment [facility] [address] [place] [phone] Kiel Vasquez MD [address] [facility] [address] [place] [phone] 07/21/2024 9:53 AM LINER MACHINE OPERATOR HELPER Hospital Encounter [facility] [address] [place] [address] Kiel Vasquez MD [address] [facility] [address] [place] [id number] Paroxysmal A-fib 07/21/2024 9:53 AM LINER MACHINE OPERATOR HELPER - 07/21/2024 11:46 AM LINER MACHINE OPERATOR HELPER Surgery [facility] [address] [place] [phone] Kiel Vasquez MD [address] [facility] [address] [place] [phone] Left atrial appendage closure percutaneous 07/28/2024 8:30 AM LINER MACHINE OPERATOR HELPER Office Visit [facility] Oncology and Hematology - [place] [address] [facility] [address] [place] [phone] Nahid Hickman MD [address] [facility] [address] [place] [address] 09/09/2024 1:00 PM CDT Office Visit [facility] Heart and Vascular At [facility] [address] [place] [phone] Kiel Vasquez MD [address] [facility] [address] [place] [address] 12/16/2024 11:00 AM CDT Office Visit [facility] HEART AND VASCULAR EP AT [place] [address] [facility] [address] [place] [address] Demetrius Bowling DNP [address] [facility] [address] [place] [address] 02/05/2025 10:45 AM CDT Telephone Check Up [facility] Heart and Vascular At [address] [place] [address] 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, [employer] [facility] [address] [place] [address] documented as of this encounter Visit Diagnoses Diagnosis Chronic diastolic congestive heart failure- Primary Chronic diastolic heart failure Pre-op testing Preoperative examination, unspecified Paroxysmal atrial fibrillation- Primary Atrial fibrillation Paroxysmal A-fib Atrial fibrillation Paroxysmal A-fib Atrial fibrillation documented in this encounter Care Teams Roller Relationship Specialty Start Date End Date Aliza Bain MD [address] [place] [phone] PCP - General Family Practice 11/22/21 documented as of this encounter
--- OUTSIDE RECORDS SUMMARY | 2024-07-01 00:41 | XMS_ITS | Encounter Summary ---
Author Organization [facility] Address [address] [place] [address] Care Team Providers Care Strategic Accounts Manager Name Role Phone Aliza Bain MD Primary Care Provider Reason for Visit * Auth/Cert (Routine) Specialty Diagnoses / Procedures Referred By Contac t Referred To Contact Cardiology Procedures AR CATH PLMT L HRT & ARTS W/NJX & ANGIO IMG S&I Left heart cath Sarbjit Brooks MD [address] [facility] [address] [place] [address] [facility] Event Operations Manager [address] [place] [address] Referral ID Status Reason Start Date Expiration Date Visits Re quested Visits Authorized [id number] 1 1 Encounter Details Date Type Department Care Team (Late st Contact Info) Description 10/22/2023 11:56 AM CDT - 10/22/2023 6:11 PM CDT Surgery [facility] CV Operating Room [address] [facility] [place] [address] Edinson Ferrell MD [address] [address] [place] [address] CORONARY ARTERY BYPASS GRAFT X3 OFF PUMP WITH LEFT INTERNAL MAMMARY ARTERY Surgery Details Date/Time Status Location OR Service Patient Class Case Class Case Type Trauma Case? 10/22/2023 11:[address] [facility] OR HH OR 03 Cardiovascular Inpatient Elective No Panel 1 Procedure LRB Anes Op Region Wound Class Comments CORONARY ARTERY BYPASS GRAFT X3 OFF PUMP WITH LEFT INTERNAL MAMMARY ARTERY N/A General Chest Clean-I STERNOTOMY N/A General Chest Clean-I VEIN HARVEST ENDOSCOPIC Left General Leg Clean- I Panel 2 Procedure LRB Anes Op Region Wound Class Comments TRANSESOPHAGEAL ECHOCARDIOGRAM N/A General Esophagus Not Applicable Surgeon Surgeon Role Service Panel Shin Rosenbaum, Primary Anesthesia 2 Edinson Ferrell MD Primary Cardiovascular 1 Case Notes INPATIENT documented in this encounter Social History Tobacco [...] any clubs o r organizations such as pentecostalism groups, unions, fraternal or athletic groups, or [...] Sign Reading Time Taken Comments Blood Pressure 133/63 10/22/2023 5:48 PM CDT Pulse 71 10/22/2023 6:10 PM CDT Temperature 34.5 ??C (94.1 ??F) 10/22/2023 6:10 PM CD T Respiratory Rate 12 10/22/2023 6:10 PM CDT Oxygen Saturation 100% 10/22/2023 6:10 PM CDT Inhaled Oxygen Concentration - - Weight 60.8 kg (134 lb) 10/19/2023 10:07 AM CDT Height 160 cm (5' 3 ) 10/19/2023 10:07 AM CDT Body Mass Index 23.42 10/19/2023 10:07 AM CDT documented in this encounter Discharge Summaries * Arash Watson PA - 10/30/2023 2:59 PM CDT Images from the original note were not included. CTS Discharge Summary Zee Patrick Martinez [id number] PRIMARY CARE PHYSICIAN: Aliza Bain MD Admission [...] ARTERY performed by Edinson Ferrell MD at [facility] OR HYSTERECTOMY HX SPLENECTOMY HX THORACOTOMY Right 08/31/2020 THORACOTOMY performed by Edinson Ferrell MD at [facility] OR HX TONSILLECTOMY HX TRIGGER FINGER REPAIR AR ECHO TRANSESOPHAG MONTR CARDIAC PUMP FUNCTJ N/A 10/22/2023 TRANSESOPHAGEAL ECHOCARDIOGRAM performed by Shin Rosenbaum DO at [facility] OR AR INCISION DEEP OPENING BONE CORTEX THORAX N/A 10/22/2023 STERNOTOMY performed by Edinson Ferrell MD at [facility] OR AR NDSC SURG W/VIDEO-ASSISTED HARVEST VEIN CABG Left 10/22/2023 VEIN HARVEST ENDOSCOPIC performed by Edinson Ferrell MD at [facility] OR AR RMVL LUNG OTHER THAN PNEUMONECTOMY 1 LOBE LOBECT Right 08/31/2020 LUNG LOBECTOMY performed by Edinson Ferrell MD at [facility] OR Procedures: Procedure(s) and Anesthesia Type: Panel 1: * CORONARY ARTERY BYPASS GRAFT X3 OFF PUMP WITH LEFT INTERNAL MAMMARY ARTERY - General * STERNOTOMY - General * VEIN HARVEST ENDOSCOPIC - General Panel 2: * TRANSESOPHAGEAL ECHOCARDIOGRAM - General Detailed Operative Procedure: On 10/22/2023, Edinson Ferrell MD Physician Specialty: Thoracic Surgery Operative Report Signed Date of Service: 10/25/2023 4:05 PM [place], [place] Patient: EZE MARTINEZ CSN: [id number] : 1945 Provider: Edinson Ferrell MD OPERATIVE [...] the left lower extremity. Off-pump CABG x3. 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 ANESTHESIA: General endotracheal with intraoperative [...] to infection, bleeding, need for transfusion, reexploration, DE, CVA, renal and pulmonary GI complications, vascular [...] was half dose heparinized and we utilized Adventi stabilizing system to approach the vessel. The [...] opening the WESLEY prior to opening the elem vessel, the EKG changes resolved, confirming our [...] stable condition. Edinson Ferrell MD MMODL D: [id number] V: [id number] CC Page 1 of 2 Last signed [...] Hives Tolerates Ancef Laboratory: BMP: Recent Labs 10/29/23153 NA 136 K 4.2 CL 102 CO2 24 BUN 22 CREAT 1.03* GLUCOSE 117* estimated creatinine clearance is 36.6 mL/min (A) (by C-G formula based on SCr of 1.03 mg/dL (H)). LFTs:No results for input(s): ALKPHOS , ALT , AST , BILITOTAL , ALBUMIN in the last 72 hours. CBC: Recent Labs 10/29/23153 WBC 14.5* HGB 9.4* HCT 28.6* PLT [...] Impression IMPRESSION: Stable chest radiograph. DICTATION LOCATION: [address] XR CHEST PA OR AP 1 [...] basilar atelectasis. DICTATION LOCATION: Location 2 - [facility] Discharge Medications: Medication List START taking these [...] [facility] [address] [address] amiodarone 200 mg tablet atorvastatin 40 mg [...] to infection, bleeding, need for transfusion, reexploration, DE, CVA, renal and pulmonary GI complications, vascular [...] QD, Lopressor 25mg BID Medications -- Hold [employer] FINISH[employer] Norvasc, HCTZ Pulm: on room air, Incentive [...] H/H 9.4/28.6 reflecting 3% drop from baseline. [id number] PRBC on 10/23. H/H is up , Platelets up trending. 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 Body mass index is 23.74 [...] appointment. The patientalso has an appointment with [facility] Former, Louise Marie, on 11/21 @ 1000 Written [...] not included. [facility] [address] [place] [address] Dr. Yulia Ferrell Office # [phone] (nurse line ext. [phone]) Please call the [...] social activities, like going to the movies, pentecostalism, and restaurants. Sternal Precautions: Do not drive [...] and pulling with your arms. Avoid repetitive mtff-jp-smik or tpdc-alh-kmnal arm movements. Getting out of and into [...] youreceived from Cardiac Rehab or contact the [employer] for further information on smoking [...] a narcotic pain reliever such as hydrocodone ([place]) is prescribed for two to four weeks [...] days of your appointment time @ any [facility] facility with Radiology. The chest x-ray has been ordered, and you do not need an appointment. Follow-up with your [facility] Former's Nurse Practitioner, Louise Marie, on November 21 at 10:00 AM. Chronic conditions will be addressed by Aliza Bain MD. Please follow-up with Aliza Bain MD in the next 4 weeks. We encourage you to enroll in: at [email or web address]. It is a valuable tool to manage your healthcare needs. Activation code not generated Current [place] Status: Active documented in this encounter Medications [...] 10/30/23 1500 Discharge Planning Plan Discharge To [facility] facility Patient/Family Communications Confirmed Discharge Plan Discharge Plan Agreed Upon Patient Resource List Given Care facilities Resource List Given To Patient Information Given Concerning Criteria for (skilled) nursing facility Follow-up on Referrals Sent Yes Has discharge transport been arranged? Yes Transportation Provider [facility] Transportation Provider Final Discharge Arrangements Final Discharge Disposition SNF Care Facility Name [facility] Care Facility Contact Name [facility] Care Facility Services Arranged For Discharge Transportation assistance;[facility] facility (SNF) Date Of Pick-Up 10/30/23 Time Of Pick-Up 6939 Copy of this transfer form will be [...] Marilynn Gabriel ,who can be reached at [phone]. AUBREY Grullon Social Work I-IPCM AUBREY Grullon, [...] 3.9 CL 103 102 101 101 CO2 24 23 BUN 27* 34* 34* 31* [...] QD, Lopressor 25mg BID Medications -- Hold [employer] Norvasc, HCTZ Pulm: on room air, Incentive [...] H/H 9.4/28.6 reflecting 3% drop from baseline. [id number] PRBC on 10/23. H/H is up , Platelets up trending. 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 Body mass index is 23.74 [...] home w/ HH or Rehab? * Serenity Eugene, INSTRUMENT AND ELECTRICAL TECHNICIAN - 10/29/2023 10:14 AM CDT CTS SPCU [...] QD, Lopressor 25mg BID Medications -- Hold [employer]ISH[employer] Norvasc, HCTZ Pulm: on room air, Incentive [...] H/H 9.4/28.6 reflecting 3% drop from baseline. [id number] PRBC on 10/23. H/H is up , Platelets up trending. 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 Body mass index is 23.74 [...] the original note were not included. [facility] Adult Therapeutic Orders Protocol [facility] Approved by: [facility] - Medical Executive Committee Approval Date: 06/07/2023 ORDERS ARE ENTERED ???PER PROTOCOL?? Enter the protocol in the patient's electronic health record using smartphrase:.nursingtheraputicordersprotocol For adult inpatients with complaints of minor discomfort Nursing Orders: [id number] Ice Pack/Cold Therapy 20 minutes every 2 hours to affected area. [id number] Warm Compress/Heat to affected area 20 minutes [...] oriented x3 Data Review: BMP: Recent Labs 10/23/23171410/24/2345210/25/239 10/26/23 0504 NA 135* 136 135* 135* [...] QD, Lopressor 25mg BID Medications -- Hold [employer] Norvasc, HCTZ Pulm: Incentive spirometry, and ambulate [...] H/H 9.9/29.8 reflecting 3% drop from baseline. [id number] PRBC on 10/23. H/H is up , Platelets up trending. Plan: Trending labs with repeat CBC in 48 hours Drains/Wires: removed Lines: D/c CVL Pain Control: Continue oral pain medication, IV narcotics for breakthrough pain, and scheduled tylenol. 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 Body mass index is 23.74 [...] if HR remains stable Medications -- Hold [employer] FINISHER norvasc, HCTZ Pulm: Incentive spirometry, and ambulate [...] H/H 9.9/29.8 reflecting 3% drop from baseline. [id number] PRBC on 10/23. H/H is up , Platelets up trending. Plan: Trending labs with repeat CBC in 48 hours Drains/Wires: removed Lines: D/c CVL Pain Control: Continue oral pain medication, IV narcotics for breakthrough pain, and scheduled tylenol. 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 Body mass index is 23.74 [...] if HR remains stable Medications -- Hold [employer] FINISHER norvasc, HCTZ Pulm: Incentive spirometry, and ambulate [...] H/H 9.9/29.8 reflecting 3% drop from baseline. [id number] PRBC on 10/23. H/H is up , Platelets up trending. Plan: Trending labs with repeat CBC in 48 hours Drains/Wires: removed Lines: D/c CVL Pain Control: Continue oral pain medication, IV narcotics for breakthrough pain, and scheduled tylenol. 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 Body mass index is 23.74 [...] oriented x3 Data Review: BMP: Recent Labs 10/22/23181310/23/2340610/23/23171410/24/2345210/25/23 040 NA 136 141 135* 136 135* K [...] 0.5 ALBUMIN 3.8 4.0 CBC: Recent Labs 10/22/23181310/23/2340610/23/23171410/24/2345210/25/23 040 WBC 17.3* 26.2* 31.0* 28.7* 24.8* HGB [...] BID. Start olmesartan 10mg QD (lower than [employer] FINISHER dose). Will start beta farideh if HR remains stable Medications -- Hold [employer]ISH[employer] norvasc, HCTZ Pulm: Incentive spirometry, and ambulate [...] H/o anemia. Pre-op H/H 04/17, Today's H/H 10.5/31.3 reflecting 0% drop from baseline. Received 1U PRBC on 10/23. H/H is down up , Platelets up trending. Plan: Trending labs with repeat CBC tomorrow Drains/Wires: removed Lines: Keep PIV and CVL Pain Control: Continue oral pain medication, IV narcotics for breakthrough pain, and scheduled tylenol. 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 Body mass index is 23.74 [...] first few days from discharge. * Tana Thorne PA-C - 10/24/2023 6:38 AM CDT CTS [...] Index: 3 L/min/m2 (10/23/23799) PAP CVP CVP: 11 mmHg (10/24/23599) Drips: Levo RETIRED Dose (mcg/min): 0 mcg/min (10/22/232157) Insulin Dose (units/hr): 0 Units/hr (10/23/23806) Nipride Amiodarone I&O: Intake/Output Summary (Last 24 [...] of 1.48 mg/dL (H)). LFTs: Recent Labs 10/22/23 1814 [...] Coagulation: Recent Labs 10/21/23 0646 10/21/23 1505 10/21/234 10/22/23 1814 PT -- -- -- 16.5* [...] Weaned off nicardipine yesterday morning. Started on [employer]ISH[employer] BP meds. Patient became more hypotensive and bradycardic so they were stopped and she was started on dobutamine. Patient went into A.fib in the 120s Metop IV 5mg x 1 given and 2.5 x 1 given. Rate controlled in the 90s. Medications -- ContinueAmiodarone 200 mg TID for afib prophylaxis, aspirin 325mg, lipitor 80mg daily, Start eliquis today. 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 Body mass index is 23.74 [...] until hemodynamically stable Discharge Disposition: TBD Tana Thorne PA-C, 10/24/2023 6:38 AM * Mouna Carey [...] UOP Call Christin Triplett if assistance needed ([phone]) * Kristin Dior, TUNDE - 10/23/2023 7:04 PM CDT 0800- Dr. Ferrell at bedside and noted ST elevation on monitor. Patient having incisional CP 8/10 and back pain. Verbal orders received to give patient 5mg IV lopressor as well. 0830- EKG handed to READING TEACHER Raymundolverena for review. Notified that patients back pain is L shoulder pain which patient reports has been ongoing since the procedure yesterday. Discussed PO metoprolol, olmesartan, and hydrochlorothiazide ordered at the same time with PA silvano due to patient just receiving IVlopressor. Ordered to give PO metoprolol and hydrochlorothiazide when available, and hold olmesartan at this time. 1050- received order to give olmesartan for SBP 140s. 1220- notified PA Silvano of decreased urine output this morning. Patient having poor PO intake. Orders received. 1450- HR low 50s and occasionally hitting high 40s, and continued low urine output. notified PA Raymundolverena. Orders received to hold metoprolol and give 250 albumin at this time. 1544- page out to READING TEACHER Hellwig to discuss low HR and low UO 1629- page out to READING TEACHER Hellwig to discuss low HR and low UO 1702- called dr. Ferrell to discuss ST elevation (EKG obtained), low HR and minimal UO. Orders received for ABG, BMP, CBC, and CVP. 1845- Dr. Ferrell at bedside, CBC, BMP, MG, ABG and CVP discussed. Dr. Ferrell looked at both EKGs for patient. Ordered to give 250 of albumin and call with an update. Notified overnight babysitter RN to callDr. Ferrell after albumin is done. * Melanie Carmona RD - 10/23/2023 5:07 PM CDT Images from the original note were not included. CLINICAL DIETITIAN PROGRESS NOTE [facility] Nutrition Risk Screen: Low Riki S/P opCABG x 3 with WESLEY to LAD, SVG to OM, SVG to RCA harvest, EF 65% Food and Nutrition Related History: Pt admits she was eating okay [employer] FINISH[employer] (eating well prior to surgeryin-house as well). [...] 1007) Body mass index is 23.74 kg/m??. [place] body weight: 52.4 kg (115 lb 8.3 [...] minutes Melanie Brown RD LD Contact via Discourse Secure Chat Work cell #: [phone] Office #: [phone] * Tana Thorne PA-C - 10/23/2023 8:23 AM CDT CTS [...] Oxygen Therapy O2 Device: nasal cannula (10/23/23 050) Oxygen Therapy Flow (L/min): 2 (10/23/23 050) Weight: Weight: 60.8 kg (134 lb) (10/19/23 1007) Waveform: Square (10/22/232018) Vt Set (mL): 500 mL (10/22/232018) Set Rate (breaths/min): 12 bpm (10/22/232018) FIO2%: 30 (10/23/23122) Peak Flow (L/min): 38 L/min (10/22/232018) Pressure Support (cmH20): 5 cmH20 (10/23/23122) PEEP (cmH20): 5 cmH20 (10/23/23122) Hemodynamics: CI Cardiac Index: 3 L/min/m2 (10/23/23 08) PAP CVP CVP: 10 mmHg (10/23/23 08) Drips: Levo RETIRED Dose (mcg/min): 0 mcg/min (10/22/232157) Insulin Dose (units/hr): 2 Units/hr (10/23/23 020) Nipride Amiodarone I&O: Intake/Output Summary (Last 24 [...] for afib prophylaxis, aspirin 325mg, lipitor 80mg daily,[employer] FINISHER HCTZ 25mg daily, [employer] FINISHER olmesartan 40mg daily, metoprolol 25mg BID Medications [...] in drainage, no pacing wires Lines: D/C [place], D/C Art line, and Keep PIV and CVL Pain Control: Continue oral pain medication, IV narcotics for breakthrough pain, and scheduled tylenol. 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 Body mass index is 23.74 [...] the am Transfer to [facility] Discharge Disposition: ROMINA Thorne PA-C, 10/23/2023 8:48 AM * Karen Heart MD - 10/23/2023 8:03 AM CDT DAILY PROGRESS NOTE CARDIOLOGY [facility] Admit Date: [...] SVG to RCA harvest, EF 65% Extubated coding tech of 10/22 10/22- Doing ok after surgery. [...] setting of paroxysmal atrial fibrillation and a [id number] 2 score of 4. Postoperative care will be directed by Dr. Ferrell and the CTS service. Cardiology service will follow at a distance. Please call if further cardiac issues arise. Karen Heart MD, [facility] Inpatient Cardiology Service [facility] * Mary Bunch RCP [...] 300s - ABG shows good ventilation but [id number] with BE -5 - order placed for extubation - 1 amp bicarb Call Christin Triplett if assistance needed ([phone]) * Olga Sandhu DO - 10/22/2023 9:00 AM CDT [facility] Adult Hospitalist Progress Note Admit [...] and possible LA appendage clip today; continue [employer] ASA and started on atorvastatin # pAFib: s/p PVI/CTI 08/2021; currently appears to be in NSR; holding [employer] eliquis as currently and was on a heparin gtt for CABG # HTN # Chronic HFpEF: last EF 09/2023 60-65%; continue HCTZ 25mg qd, amlodipine 10mg qd; noted PTAolmesartan 40mg held by CTS for upcoming procedure # PAD # Carotid artery stenosis: continue [employer] ASA; noted recent carotid artery US 10/16 showing L bifurcation-ICA moderate plaque and R bifurcation-ICA mild plaque; follows outpatient with vascular surgery; started on statin # NSCLC s/p RUL resection 08/2020: noted # Myasthenia gravis: in the past had sx including LE weakness and fatigue; continue [employer] pyridostigmine (per pt she normally takes BID not TID given some stomach upset which is okay with her neurologist); follows outpatient with neurology # Hypokalemia: will replete and repeat labs in AM # Leukocytosis: mildly elevated WBC 11s that resolved and slightly bumped up this AM; likely reactive as pt does not appear to have any overt signs of infection # GERD: continue 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 Olga Sandhu DO Please contact me via Discourse Secure Chat from 7am-7pm After hours please place [facility] * Monroe Howell MD - 10/21/2023 5:05 [...] air from radial band on arrival from catheterization laboratory technician as per protocol, max band time 45 [...] interval not displayed. 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 Recommendations: CABG tentatively planned for early next week Hold [employer] Eliquis: Will bridge with heparin drip, heparin gtt to start at 1800 if RRA is stable Will continue prior to admission cardiac meds as listed below Aspirin 81 mg p.o. daily Norvasc 10 mg p.o. daily Hydrochlorothiazide 25 mg p.o. daily Olmesartan 40 mg p.o. daily Signed: Monroe Howell MD 10/21/2023, 5:05 PM * Olga Sandhu DO - 10/21/2023 11:56 AM CDT [facility] Adult Hospitalist Progress Note Admit [...] and possible LA appendage clip tomorrow; continue [employer] ASA and started on atorvastatin # pAFib: s/p PVI/CTI 08/2021; currently appears to be in NSR; holding RU[employer] FINISH[employer] eliquis as currently and on a heparin gtt for possible upcoming procedure # HTN # Chronic HFpEF: last EF 09/2023 60-65%; continue HCTZ 25mg qd, amlodipine 10mg qd; noted PTAolmesartan 40mg held by CTS for upcoming procedure # PAD # Carotid artery stenosis: continue RU[employer] FINISH[employer] ASA; noted recent carotid artery US 10/16 showing L bifurcation-ICA moderate plaque and R bifurcation-ICA mild plaque; follows outpatient with vascular surgery; started on statin # NSCLC s/p RUL resection 08/2020: noted # Myasthenia gravis: in the past had sx including LE weakness and fatigue; continue [employer] pyridostigmine (per pt she normally takes BID not TID given some stomach upset which is okay with her neurologist); follows outpatient with neurology # Hypokalemia: resolved with repletion # Leukocytosis: mildly elevated WBC 11.4; likely reactive as pt does not appear to have any overt signs of infection and normalized on repeat # GERD: continue [employer] 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 Olga Sandhu DO Please contact me via Discourse Secure Chat from 7am-7pm After hours please place E-ticket to [facility] * Ivone Barbosa MD - 10/21/2023 10:18 [...] clarity Data Review: BMP: Recent Labs 10/19/23 0910/20/23 0105 10/21/23 0646 NA 138 136 136 K 3.1* 3.8 3.6 CL 98 100 99 CO2 29 27 24 BUN 22 20 15 CREAT 1.06* 0.87 0.94 GLUCOSE 113* 104* 107* estimated creatinine clearance is 37.7 mL/min (by C-G formula based on SCr of 0.94 mg/dL). 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 Recommendations: CABG tentatively planned for early next week Hold RU[employer] FINISHER Eliquis: Will bridge with heparin drip, heparin gtt to start at 1800 if RRA is stable Will continue prior to admission cardiac meds as listed below Aspirin 81 mg p.o. daily Norvasc 10 mg p.o. daily Hydrochlorothiazide 25 mg p.o. daily Olmesartan 40 mg p.o. daily Signed: Monroe Howell MD 10/20/2023, 4:14 PM * Olga Sandhu DO - 10/20/2023 12:00 PM CDT [facility] Adult Hospitalist Progress Note Admit [...] been consulted for evaluation of CABG; continue [employer] ASA and started onatorvastatin # pAFib: s/p PVI/CTI 08/2021; currently appears to be in NSR; holding [employer] eliquis as currently and on a heparin gtt for possible upcoming procedure # HTN # Chronic HFpEF: last EF 09/2023 60-65%; continue HCTZ 25mg qd, amlodipine 10mg qd; noted PTAolmesartan 40mg held by CTS for upcoming procedure # PAD # Carotid artery stenosis: continue [employer] ASA; noted recent carotid artery US 10/16 showing L bifurcation-ICA moderate plaque and R bifurcation-ICA mild plaque; follows outpatient with vascular surgery; started on statin # NSCLC s/p RUL resection 08/2020: noted # Myasthenia gravis: in the past had sx including LE weakness and fatigue; continue [employer] pyridostigmine (per pt she normally takes BID not TID given some stomach upset which is okay with her neurologist); follows outpatient with neurology # Hypokalemia: resolved with repletion # Leukocytosis: mildly elevated WBC 11.4; likely reactive as pt does not appear to have any overt signs of infection and normalized on repeat # GERD: continue RU[employer]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 Olga Sandhu DO Please contact me via Discourse Secure Chat from 7am-7pm After hours please place E-ticket to [facility] * Tisha Robins MSW - 10/20/2023 9:11 [...] continue to follow for discharge planning. Tisha BURGOS Zone: [phone] Office: [phone] documented in this encounter H&P Notes * Tana Thorne PA-C - 10/22/2023 9:00 AM CDT CTS [...] oriented x3 Data Review: BMP: Recent Labs 10/19/2358 10/20/2310410/21/2346 10/22/23 010 NA 138 136 136 136 [...] reviewed B farideh was given * Olga Sandhu, - 10/19/2023 12:52 PM CDT [facility] Adult Hospitalist H&P Patient Name: Zee Martinez 1945 Primary Care Doctor: Aliza Bain MD Date of Admission: 10/19/2023 Date of Service: 10/19/2023 Assessment and Plan: # Severe multivessel disease CAD: had some sx of CONDE the last few months that prompted an outpatient stress test which revealed a small apical perfusion defect and subsequent C today showing severemultivessel disease; CTS has been consulted for evaluation of CABG; continue [employer] ASA and started onatorvastatin # pAFib: s/p PVI/CTI 08/2021; currently appears to be in NSR; holding [employer] eliquis as currently willstart on heparin gtt for possible upcoming procedure # HTN # Chronic HFpEF: last EF 09/2023 60-65%; continue [employer] olmesartan 40mg qd, HCTZ 25mg qd, amlodipine 10mg qd # PAD # Carotid artery stenosis: continue [employer] ASA; noted recent carotid artery US 10/16 showing L bifurcation-ICA moderate plaque and R bifurcation-ICA mild plaque; follows outpatient with vascular surgery; started on statin # NSCLC s/p RUL resection 08/2020: noted # Myasthenia gravis: in the past had sx including LE weakness and fatigue; continue [employer] pyridostigmine (per pt she normally takes BID [...] CBC in the AM # GERD: continue [employer] PPI DVT Prophylaxis Heparin gtt Code status [...] 10/02 revealing small apical perfusion defect c/w DE. LHC today revealing severe multivessel disease, critical [...] THORACOTOMY performed by Edinson Ferrell MD at [facility] OR HX TONSILLECTOMY HX TRIGGER FINGER REPAIR AR RMVL LUNG OTHER THAN PNEUMONECTOMY 1 LOBE LOBECT Right 08/31/2020 LUNG LOBECTOMY performed by Edinson Ferrell MD at [facility] OR Family History Problem Relation Name [...] small apical perfusion abnormality are new 3) [facility] 10/18: 1. Severe multivessel disease - critical [...] and communication with other health health care / medical job titles (not separately reported), Independently interpreting results and communicating results to the patient/family/caregiver (not separately reported), Care coordination (not separately reported), and Excluding time spent performing separately billed procedures and/or services. Olga Sandhu DO Please contact me via Discourse Secure Chat from 7am-7pm After hours please place E-ticket to [facility] * Sarbjit Brooks MD - 10/19/2023 10:12 AM CDT Event Operations Manager Pre-Procedure Note Patient: Zee Nguyen Martinez / 78 y.o. / female : 1945 CSN: [id number] Today's date: 10/19/2023 Planned Procedure: [facility] Indications: dyspnea, abnormal stress test Appropriate history [...] IV insertion attempted 1 time on Zee Matrinez Date: 10/26/2023 Time: 929 Insertion was successful: Yes Description of insertion attempt: 20g PIV placed into left forearm. Flushes without difficulty and has blood return. Primary RN notified. * Gertrude Willis RDCS - 10/25/2023 7:29 AM CDT Images from the original note were not included. STL DCS Definity Protocol [facility] Approved by: [facility] - Medical Executive Committee Approval Date: 11/30/2022 [...] of DEFINITY?? on ECMO patients. The ECMO ballast regulator operator must bepresent when the DEFINITY ?? is administered and while images are being obtained. The ECMO operatorcan be reached at [address] [place] [address] ([phone] in [place]) If patient meets/states ???yes to any exclusion criteria, STOP THE PROCEDURE, and annotate exam accordingly Patient meets at least one of these inclusion criteria Credentialed provider request Patient is technically difficult to image ([place] Society of Echocardiography guidelines recommend use when [...] ordered by a credentialed provider, RN or battery tester Educate patient or responsible constitution party on DEFINITY?? indications and potential side effects and review procedure goals with the patient and/or caregiver Verify patient does not have any allergy or contraindications to receive DEFINITY?? or octaflouropropane and confirm Allergies by ???Marking as Reviewed?? in patient's chart Verify peripheral or central line IV access. If IV access is not available, then a trained battery tester science professor may place peripheral IV access, as appropriate, [...] below for further information) RN or trained battery tester may discontinue peripheral IV access when IV [...] lung surgery, and a.fib procedure. 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 [...] air from radial band on arrival from catheterization laboratory technician as per protocol, max band time 45 [...] A1c: No results found for: HGBA1C , [id number] Past Surgical History: Past Surgical History: Procedure Laterality Date HX ANKLE SURGERY HX COLONOSCOPY W/ POLYPECTOMY HX HYSTERECTOMY HX SPLENECTOMY HX THORACOTOMY Right 08/31/2020 THORACOTOMY performed by Edinson Ferrell MD at [facility] OR HX TONSILLECTOMY HX TRIGGER FINGER REPAIR AR RMVL LUNG OTHER THAN PNEUMONECTOMY 1 LOBE LOBECT Right 08/31/2020 LUNG LOBECTOMY performed by Edinson Ferrell MD at [facility] OR Allergies: Allergies Allergen Reactions Penicillins Hives Family History: Family History Problem Relation Name Age of Onset Heart Disease Father Heart Disease Mother Stroke Sister Asthma Sister Patient does not have any direct female blood relatives (mother, sister, daughter) with the following at the age of < 65 yo: Angina, Acute DE, Sudden Cardiac without Obvious Cause, CABG Surgery, PCI. Patient does not have any direct male blood relatives (father, brother, son) with the following at the age of < 55 yo: Angina, Acute DE, Sudden Cardiac without Obvious Cause, CABG Surgery, [...] Friends and Family: Not on file Attends Yarsani Services: Not on file Active Member of [...] infection, bleeding, need for transfusion or reexploration, DE, CVA, renal and pulmonary complications and . Patient agrees to proceed. Edinson Ferrell MD [facility] Cardiovascular and Thoracic Surgery On the day of the visit, I spent 55 minutes providing care to this patient including Preparing to see the patient, Obtaining and/or reviewing separately obtained history, Performing a medically appropriate examination and/or evaluation, Counseling and educating the patient/family/caregiver, and Docu menting clinical information in the medical record. * Sarbjit Brooks MD - 10/19/2023 12:47 PM CDT [facility] HEART AND VASCULAR INPATIENT CONSULTATION I agree [...] I don't answer immediately, please contact the READING TEACHER line at [phone] After-hours or the weekends, please DO NOT use Secure Chat, contact the exchange for the on-call doctor at [phone] Thank you for the opportunity to participate in the care of your patient, please do not hesitate tocall with any questions or concerns. Sarbjit Brooks MD [facility] - Heart and Vascular General, Interventional, and Structural Cardiology Vascular Medicine and Intervention Call our Cardiology READING TEACHER line with questions: [phone] [facility] Heart and Vascular Cardiology Consult Shruthi Thomas, RN, MSN, INSTRUMENT AND ELECTRICAL TECHNICIAN-C Cardiology consult, requested This consult is for advice and opinion regarding CAD Primary Care Physician: Aliza Bain MD Primary Conformal Pad Former: Dr Brooks History of Present Illness: Zee [...] THORACOTOMY performed by Edinson Ferrell MD at [facility] OR HX TONSILLECTOMY HX TRIGGER FINGER REPAIR AR RMVL LUNG OTHER THAN PNEUMONECTOMY 1 LOBE LOBECT Right 08/31/2020 LUNG LOBECTOMY performed by Edinson Ferrell MD at [facility] OR Family History Problem Relation Name [...] Friends and Family: Not on file Attends Yarsani Services: Not on file Active Member of [...] Final EKG: pending Assessment: Abnormal NM stress: [facility] MVCAD : CTS consulted paroxysmal A-fib on 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 Shruthi Thomas, RN, MSN, INSTRUMENT AND ELECTRICAL TECHNICIAN-C Nurse Practitioner [facility] Heart and Vascular I am available to receive secure chat messaging for any concerns Sunday-Sunday 8:00am -4:30 pm. [place] [phone]. After 4:30pm or on weekends please call the exchange at [phone] documented in this encounter OR Notes * Operative Report - Edinson Ferrell MD - 10/25/2023 4:05 PM CDT [place], [place] Patient: ZEE MARTINEZ CSN: [id number] : 1945 Provider: Edinson Ferrell MD Operative [...] the left lower extremity. Off-pump CABG x3. 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 ANESTHESIA: General endotracheal with intraoperative [...] to infection, bleeding, need for transfusion, reexploration, DE, CVA, renal and pulmonary GI complications, vascular [...] was half dose heparinized and we utilized PiPsportstronic stabilizing system to approach the vessel. The [...] opening the WESLEY prior to opening the elem vessel, the EKG changes resolved, confirming our [...] stable condition. Edinson Ferrell MD MMODL D: [phone] V: [id number] CC * Brief Op Note - Edinson Ferrell MD - 10/22/2023 7:30 PM CDT Brief Postoperative Note Zee Martinez [id number] Pre-operative Diagnosis: Severe CAD Post-Op Diagnosis: Same. Acsending aortic calcification Procedure-anesthesia: Epiaortic U/S CORONARY ARTERY BYPASS GRAFT X3 OFF PUMP WITH LEFT INTERNAL MAMMARY ARTERY STERNOTOMY VEIN HARVEST ENDOSCOPIC, Left - Leg TRANSESOPHAGEAL ECHOCARDIOGRAM Anesthesia Type: General Surgeons and Role: Panel 1: * Edinson Ferrell MD Handtools Repairer: Debra REYES Findings: ascending aortic calcium,. Implants: Implant Name Type Inv. Item Serial No. Cyber Software Engineer Lot No. LRB No. Used Action CLIP LIGATING HORIZON MED TI [id number] - CSC - [id number] Clip CLIP [place]IGATING [place]IZON MED TI [id number] - CSC TELEFLEX- WECK CLOSURE SYS [id number] N/A 2 Implanted CLIP LIGATING HORIZON SM TI 254158 - CSC - [id number] Clip CLIP LIGATING HORIZON SM TI [id number] - CSCTELEFLEX INC [id number] N/A 1 Implanted VENETIAN BLIND WORKER CLIP SURGICLIP III TI LINDA SM 9IN [id number] - [id number] Clip VENETIAN BLIND WORKER CLIP SURGICLIP III TI LINDA SM 9IN [id number] [employer] - COVIDIEN [id number] Left 1 Implanted VENETIAN BLIND WORKER CLIP SURGICLIP III TI LINDA SM 9IN [id number] - [id number] Clip VENETIAN BLIND WORKER CLIP SURGICLIP III TI LINDA SM 9IN 125778 [employer] - COVIDIEN [id number] N/A 1 Implanted VENETIAN BLIND WORKER CLIP SURGICLIP II LINDA 9.75IN [id number] - [id number] Clip VENETIAN BLIND WORKER CLIP SURGICLIP II LINDA 9.75IN [id number] [employer] - COVIDIEN [id number] N/A 1 Implanted VENETIAN BLIND WORKER CLIP SURGICLIP III TI LINDA SM 9IN [id number] - [id number] Clip VENETIAN BLIND WORKER CLIP SURGICLIP III TI LINDA SM 9IN 260705 [employer] - COVIDIEN [id number] N/A 1 Implanted VENETIAN BLIND WORKER CLIP SURGICLIP III TI LINDA SM 9IN 253179 - [id number] Clip VENETIAN BLIND WORKER CLIP SURGICLIP III TI LINDA SM 9IN [id number] [employer] - COVID[employer]EN [id number] N/A 1 Implanted MARKER ANASTOMARK CABG SLCN FM-PM-1 - [id number] Other MARKER ANASTOMARK CABG SLCN FM-PM-1 [id number] N/A 2 Implanted Estimated Blood Loss: No blood loss documented. Edinson Ferrell MD * Meghann-OP - Moni Helm LCP - 10/22/2023 5:38 PM CDT Perfusion Note: Primary window maker: neeraj Cardiopulmonary bypass time= n/a Cross clamp time=n/a Procedure: CABG X 3__, off pump standby 375 cell saver processed Uneventful case. For complete information please see scanned perfusion record. * Operative Report - Sarbjit Brooks MD - 10/19/2023 10:12 AM CDT CARDIAC CATHETERIZATION FINAL REPORT Date of Procedure: 10/19/2023 Conformal Pad Former: Sarbjit Brooks MD Access: right radial artery [...] air from radial band on arrival from catheterization laboratory technician as per protocol, max band time 45 [...] included. Respiratory Therapy Assess and Treat Protocol- [facility] Approved by: [facility]-Medical Executive Committee Approval Date: 06/07/2023 ORDERS ARE ENTERED ???PER PROTOCOL?? Enter the protocol in the patient???s electronic health record using Beatroboe: .rtassessandtreatprotocol Respiratory Therapy orders: Requires a written order for Assess and Treat Protocol (RT41) or IP Consult to Respiratory Therapy (CON21) by the physician or the physician paper production engineer. Oxygen desaturation studies (walk studies) must be [...] 2 puffs Albuterol 2.5 Mg Albuterol Class *Reassess in 24 hrs * Reassess in [...] (CON21) by the physician or the physician paper production engineer. 2. Only licensed Respiratory Therapists will be permitted to assess patients using the standardized Respiratory Assessment for the Assess & Treat Protocol. 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 Patients in [facility] [...] not indicated for patients transitioning to a chcf facility, rehabilitation facility, or who have not required oxygen since admission unless otherwise specified by the physician. ASSESS AND TREAT PROTOCOL-ADULT BRONCHODILATION PROCEDURE Indications: Bronchospasm/wheezing (Reactive Airway Disease, Asthma, Emphysema, Chronic Bronchitis, Bronchiolitis) Current Home Bronchodilator usage including short-acting, long-acting, inhaled corticosteroid, anticholinergic, and combination respiratory medications. Other indications stated in the [place] Association for Respiratory Care???s Clinical Practice Guidelines, [...] PRN 2 puffs Albuterol 2.5mg Albuterol Class 2/9-12 *Reassess in 24 hrs * Reassess in 96 hrs after initial assessment. *If patient condition worsens then reassess q6 or QID and q6 PRN 2puffs Albuterol 2.5mg Albuterol Class 08/28-18 *Reassess in 24 hrs * Reassess in [...] the patient is being managed by their Digital Strategist. Determine Mode of Delivery using chart below. [...] MDI 4)Considerations Review patient???s Prior to Admission (RUBBER GOODS FINISHER) medication list. The Respiratory Therapist will consider ordering any of the following meds based on the patient???s home regimen: Short and long-acting bronchodilators, inhaled corticosteroids, anticholinergics, and combination respiratory medications. Use of the preferred [facility] formulary equivalent should be ordered per Assess and Treat Protocol for use throughout the patients hospital stay. Patients diagnosed with a chronic lung disease, such as COPD or Asthma, will be evaluated for the benefit of a controller medication therapy (long-acting bronchodilators, inhaled corticosteroids, anticholinergics, and combination respiratory medications) if not already on the RUBBER GOODS FINISHER medication list. The Respiratory Therapist will contact the attending physician if a controller therapy may benefit the patient. Xopenex (Levalbuterol) Orders will be followed as below: See Pharmacy Policy, Section: APPROVED THERAPEUTIC INTERCHANGES FOR [facility] Title: Beta Agonists Patients taking home regimen [...] MEDICARE ADVANTAGE / Plan: HUMANA GOLD PLUS [employer] MCR / Product Type: HMO / Level of Care approved: [facility] Authorization number: [id number] Facility Authorized: [facility] Date(s) of Service: 10/30/2023-11/01/2023 Number of days approved: 3 Additional notes: * Care Plan - Seth Swanson - 10/30/2023 11:08 AM CDT PATIENT: Zee Martinez 1945 Request for Post-Acute Services TRANSFER TO [facility] CLINICALS UPLOADED VIA [employer] Website PENDING [facility] REVIEW REF# [id number] Waiting on determination * Care Plan - Sarah Ballard MSW - 10/30/2023 10:06 AM CDT Patient:Zee Martinez Date of :1945 Request for pre certification of Post Acute Services Payer: Payor: HUMANA MEDICARE ADVANTAGE / Plan: HUMANA GOLD PLUS HMO MCR / Product Type: HMO / Level of Care being requested: 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 Marilynn Gabriel Anticipated Discharge Date: 10/29 2 Therapies done within the last 24 hours?: yes Additional Notes: Diagnosis Code: Coronary artery disease I25.10 Atrial fibrillation (Chronic) I48.91 Sarah Charlotte, AUBREY Social Work I-[facility] AUBREY [place], 10/30/2023 10:08 AM Problem: Discharge Planning Goal: Identify discharge needs upon admission and through discharge Description: Outcome: Progressing * Care Plan - Sarah Ballard MSW - 10/30/2023 10:04 AM CDT JARRET met with pt at bedside to discuss discharge planning. JARRET explained accepting SNFs to pt. Pt chose to go with [facility] SNF. JARRET contacted Nicole, Radha of [facility] SNF, and she reported she could accept pt and pt would need DA124 code and COVID19 test prior to d/c. JARRET submitted insurance authorization to insurance auth team. JARRET notified care team. DA124 CODE: Sarah Ballard MSW Social Work [facility] Sarah AUBREY Ballard, 10/30/2023 10:06 AM Problem: Discharge Planning Goal: [...] maintaining sternal precautions. Outcome: Progressing Flowsheets Taken 10/30/2023 0818 by Lo Deras Occupational Therapist Total Treatment [...] to help improve pts strength, ROM and [place] with self care. FUNCTIONAL ACTIVITIES Grooming: setup [...] WWR- and declined use at this time [facility] Daily Activity How much help from [...] care for updates on goals. Zone #: [id number] On weekends--please call [phone] * Care Plan - Chloé Barrera RN - 10/30/2023 5:47 AM CDT SPCU Shift Note Significant events No acute events overnight. Pain managed per MAR. Turning independently and ambulating up to bathroom with stand by assist. Disposition Transfer or discharge plan: discharge to rehab * Care Plan - Alma Delia Aviles, Offset Press Assistant - 10/29/2023 1:32 PM CDT Problem: Physical [...] be based on patient's progress in therapy. RUBBER GOODS FINISHER conferred with PT, Salo Arshad, regarding update [...] not performed due to SOB and fatigue [facility] Basic Mobility How [...] phone and tray table within reach. [employer] aware A: Response to treatment: Progressing towards [...] care for updates on goals. Zone #: [id number] * Care Plan - Lo Deras Occupational [...] to help improve pts strength, ROM and [place] with self care. FUNCTIONAL ACTIVITIES Grooming: setup [...] forward head and neck posture at ~ senior living [facility]- pt required one rest break during navigation in sig[place]- with increased respirations several times into 30s- encouraged pursed lip breathing exercises, min A stand pivot at chair and min A to sit at chair- pt demos increased respirations after all mobility [facility] AM-PAC Daily Activity How much help from [...] care for updates on goals. Zone #: [phone] On weekends--please call [phone] * Care Plan - Kait Fajardo RN [...] board, note pad and pen, etc) 2. FIELD REPRESENTATIVE/HEALTH EDUCATION referral if applicable 3. Provide education in patient's primary language. Obtain park interpretive ranger and appropriate written materials. If patient refuses park interpretive ranger services have refusal waiver signed 4. Patients [...] and her son. He statesthat he works line technician and is not able to be home [...] Maryann Deutsch RN, BSN Care Management X [phone] Problem: Discharge Planning Goal: Identify discharge needs upon admission and through discharge Description: Outcome: Progressing * Therapy Treatment - Natalie Sorensen Occupational Therapist - 10/26/2023 1:59 PM CDT 10/26/23: attempted to see pt for OT treatment. Pt reports recently using BSC and fatigued. Pt request to rest and that therapy come back. Will continue to follow and re-attempt later this date if time allows. Thank you, [id number] * Care Plan - Lori Ghotra Physical [...] heel strike, decreased carrie, forward flexed posture [facility] AM-PAC Basic Mobility How much help from [...] care for updates on goals. Zone #: [phone] Lori Ghotra, PT, DPT * Care Plan [...] discharge. Patient does not have a WWR. [facility] has been ordered. Patient lives in [place], outside of the [facility] service area. Referrals sent to [facility]. Patient Discharge Planning Goal: home Patient will [...] RYLAN MARTINEZ Mobile Relation: Son Preferred language: [place] Medical Facilities Section Director needed? No Secondary Emergency Contact: ASHANTI SEAMAN Mobile Relation: Granddaughter Preferred language: [place] Medical Facilities Section Director needed? No Prescription coverage: yes Preferred Pharmacy verified: [id number] - [place], [place] - [address] [facility] MAIL DELIVERY - [place] [address] [address] Insurance coverage verified: Payor: HU[employer] [...] assist asneeded. Yancy Orantes RN Care Manager [phone] cell [phone] office * Care Plan - Jermain Carlisle RN - 10/25/2023 11:42 AM CDT Discharge teaching started with patient. Discussed restrictions after surgery. Discussed follow-up appointments. Patient is up in the chair. Will have floor staff obtain IS for patient. [facility] has been ordered for patient. * Care Plan - Enrico Mendoza RN - 10/25/2023 8:50 AM CDT Cardiac Rehab Phase 1: The follow topics were addressed and [facility] packet/folder provided; [] DE [] CAD [] Heart Disease/Lifestyle Modification [] CHF [x] CABG [] Valve SX Cardiac Rehab Phase 1-Visited with Pt at this time. Discussed with Pt coronary artery anatomy and physiology related to angina and coronary artery bypass grafting (CABG). [facility] Heart disease/lifestyle modification literature packet given and reviewed with patient. Signs and symptoms of angina discussed and the importance of routine following up with business process manager reviewed. Risk factors for heart disease discussed. The importance of a diet of low sodium, low fat, low cholesterol, and limit caffeine reviewed with Pt. The benefits of routine exercise and Outpatient cardiac rehab program at [facility] discussed. Outpatient cardiac rehab resource site location sheet reviewed with Pt. Pt verbalized understanding. The importance of recognizing stress and the healthy way to manage stress discussed. Use of deep breathe cough encouraged. Pt has PT/OT ordered. [x]Discussed OP Cardiac Rehab Program of monitored exercise and education. Outpatient Cardiac Rehab referral was sent for Brandon [phone].. Additional literature given to Pt-. Bal- Manage Cholesterol the Basics, PCNA - Get Tough on Angina [facility] -Managing the Stresses of Daily Life, [facility]-Eating with your Heart in Mind, [facility]-Exercise for Life, [facility] Handout - Taking Care of Your Heart at Home, AHA - Handout What is Coronary Bypass Surgery , How Can I Lower High Cholesterol?, Your Heart and How it works,How Can I Cook Healthfully?, How Do I follow and Healthy diet?, [facility] Cardiac Rehabilitation brochure given and location resource [...] LOB. Good eccentric control to sit Gait: hCad for ambulating 5 feet in room x2 trials without device, pt holding cardiac pillow. Verbal cues for upright posture and step length. Pt declined further ambulation secondary to sternal pain. --Gait deviations: decreased step length, narrow SHIELA, decreased heel strike, decreased carrie Stairs: pt does not perform at baseline [employer] AM-PAC Basic Mobility How much help from [...] or cannot do at all Total score 1424 Scale: 1 - Total - requires total [...] care for updates on goals. 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 Pt lives alone but states her son will be staying with her at d/c but works throughout the day. 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 Ambulated HH and community distances without device, [...] standing good, standing dynamic fair while transferring [facility]-PAC Basic Mobility How much help from [...] issued at DC: To be determined (10/24/23 5658) --Patient involved in goal setting: yes Patient goals will be found in the Care Plan section of the medical chart. Zone #: [phone] Lori Ghotra, PT, DPT On weekends--please call [phone] * Therapy Evaluation - Natalie Sorensen, Occupational Therapist - 10/23/2023 11:12 AM CDT Occupational Therapy order received, chart reviewed, and evaluation completed. Please see full evaluation below for details. Daily OT notes will be located in Care Plan notes. Thank You. 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 [facility] AM-PAC Daily Activity How much help from [...] chair alarm on, call light in reach, all lines intact, RN aware. Patient/Family Education: Purpose of [...] section of the medical chart. Zone #: [phone] On weekends--please call [phone] * Therapy Evaluation - Brandee Cole, Physical Therapist - 10/23/2023 11:10 AM CDT PT orders received. Attempted to see pt for PT eval twice today. At 1002 pt having lines pulled andwill be BR for 1 hour. At 1110 pt working with OT. Will continue to follow. [id number] * Care Plan - Maryann Scott RN - 10/23/2023 8:58 AM CDT Cardiac Rehab: Recieved order, reviewed Epic notes, s/p CABG yesterday, will follow. * Care Plan - Chloé Burks RN - 10/22/2023 6:22 PM CDT Images from the original note were not included. Patient arrived to CVICU room 4090 via bed from [facility]. Patient accompanied by: Dr. Stroud and [...] assessment completed as per DOC Flow sheet. [facility] Adult IV Flush Protocol [facility] Approved by: [facility] - Medical Executive Committee Approval Date: 11/02/2022 [...] from the original note were not included. [facility] RT Ventilator Management and Liberation for Post-Op CABG/Valve Replacement Protocol [facility] Approved by: [facility] - Medical Executive Committee Approval Date: 11/30/2022 ORDERS ARE ENTERED ???PER PROTOCOL?? Enter the protocol in the patient's electronic health record using smartphrase: .ctsurgeryextubateprotocol Applies to patients admitted to the Cardiovascular Intensive Care Unit (CVICU) post-op CABG and/or Valve Replacement procedure on a mechanical ventilator. Contact credentialed provider to obtain the Liberation Weaning order ([id number]) At any point during this process the credentialed provider may override the exclusion or evaluationcriteria and move forward with the protocol or request an assessment for extubation. Upon patient arrival to the CVICU, the RT science professor will place a sign on the ventilator with an extubation goal of 5 hours from CVICU admission. If the patient continues to fail after 8 hours, the patient will be placed on the [facility] RT Adult ICU Ventilator Liberation Protocol Any steam press operator may stop Liberation Protocol if patient safety concerns arise. INITITAL VENTILATOR MANAGEMENT 1. Order initial Mechanical Ventilation settings using order (RT25) upon arrival from the OR, usingthe settings below as a guideline: AC Rate 12/min FiO2 of 0.6 Peep of 5 cm H2O Tidal Volume of 8-10 cc/kg [place] Body Weight 2. Draw Arterial Blood Gas [...] PM CDT Admit: @ 1815 [facility] from IVC G023 this Evening via wheelchair Report obtained from Keya GRIFFITHS, verified baseline PTT sent to lab Sinus rhythm on the monitor rate = 70's Pulse oximetry on room air sats @ high 90% Updated RN/CONTROL TOWER OPERATOR zone phones on white board Dr. Ferrell [...] RN: Allison BAE, RN Zone Phone #: [phone] Medical Progressive Care Unit 5th [facility] 10/19/23 * Treatment Plan - Bonita Reagan PHARMACIST - 10/19/2023 11:56 AM CDT Images from the original note were not included. 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 Dosing regimen: Low Monitoring Lab: aPTT Changes to the protocol: no [facility] Adult Heparin Protocol [facility] Approved by: [facility] - Medical Executive Committee Approval Date: 02/01/2023 [...] Minumum every 3 days: CBC without differential (AWN455) drawn at minimum of every 3 days [...] IV push ONE TIME (round to the [id number] units) followed immediately by heparin (heparin 25,000 [...] st Contact Info) Description 2024 11:00 AM CYTOTECHNOLOGIST SUPERVISOR Appointment [facility] [address] [place] [address] 07/21/2024 9:45 AM CYTOTECHNOLOGIST SUPERVISOR Appointment [facility] Event Operations Manager [address] [place] [address] Sarbjit Brooks MD [address] [facility] [address] [place] [address] 07/21/2024 9:53 AM CYTOTECHNOLOGIST SUPERVISOR Hospital Encounter [facility] Event Operations Manager [address] [place] [address] Sarbjit Brooks MD [address] [facility] [address] [place] [address] Paroxysmal A-fib 07/21/2024 9:53 AM CYTOTECHNOLOGIST SUPERVISOR - 07/21/2024 11:46 AM CYTOTECHNOLOGIST SUPERVISOR Surgery [facility] Event Operations Manager [address] [place] [address] Sarbjit Brooks MD [address] [facility] [address] [place] [address] Left atrial appendage closure percutaneous 07/28/2024 8:30 AM CYTOTECHNOLOGIST SUPERVISOR Office Visit [facility] Oncology and Hematology - [place] [address] [place] [address] Nahid Hickman MD [address] [facility] [address] [place] [address] 09/09/2024 1:00 PM CDT Office Visit [facility] Heart and Vascular At [place] [address] [facility] [address] [place] [phone] [facility] [address] [facility] [address] [place] [address] 12/16/2024 11:00 AM CDT Office Visit [facility] HEART AND VASCULAR EP AT [place] [address] [facility] [address] [place] [address] Sammy Bowling DNP [facility] [address] [facility] [address] [place] [phone] 02/05/2025 10:45 AM CDT Telephone Check Up [facility] Heart and Vascular At [address] [place] 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 [facility] [phone] Scheduled Referrals Name Type Priority Associated Diagnoses [...] 10/22/2023 11:56 AM CDT Case Notes INPATIENT AR NDSC SURG W/VIDEO-ASSISTED HARVEST VEIN CABG 10/22/2023 11:56 AM CDT Case Notes INPATIENT AR INCISION DEEP OPENING BONE CORTEX THORAX 10/22/2023 [...] (COVID-19) PCR DETECTION (10/30/2023 1:37 PM CDT) [facility] COVID-19 PCR NOT DETECTED Not Detected 10/30/19 2:37 PM CDT [facility] [employer] [facility] Upper Respiratory ENTIRE NASOPHARYNX / Unknown Collection / Unknown 10/30/2023 1:37 PM CDT 10/30/2023 1:[address] [facility] - 10/30/2023 2:37 PM CDT This test [...] infection with the 2019-Novel Coronavirus. Serenity [place] INSTRUMENT AND ELECTRICAL TECHNICIAN MICROBIOLOGY - [facility] AL ORDERABLES [facility] [employer] [facility]# [id number] [address] [facility] [address] [place]K [address] * (ABNORMAL) MANUAL DIFFERENTIAL (10/29/2023 1:54 AM CDT) [facility] SEGMENTED NEUTROPHILS 47 % 10/29/2023 9:26 AM CDT [facility] [employer] [facility] LYMPHOCYTES RELATIVE 17(L) 43 - 53 % 10/29/2023 9:26 AM CDT [facility] MONOCYTES RELATIVE 35 % 10/29/2023 9:26 AM CDT [facility] EOSINOPHILS RELATIVE 1 % 10/29/2023 9:26 AM T [facility] NEUTROPHILS ABSOLUTE COUNT 6.82 1.90 - 7.00 K/uL 10/29/2023 9:26 AM T [facility] - [facility] LYMPHOCYTES ABSOLUTE 2.47 0.70 - 4.50 K/uL 10/29/2023 9:26 AM T [facility] - [facility] MONOCYTES ABSOLUTE 5.08(H) 0.10 - 1.30 K/uL 10/29/2023 9:26 AM T [facility] - [facility] EOSINOPHILS ABSOLUTE 0.15 0.00 - 0.70 K/uL 10/29/2023 9:26 AM [facility]ORATORY SERVICES - . [place] TOTAL CELLS COUNTED IN DIFF 100 10/29/2023 9:26 AM [facility] PLATELET EST. Consistent w Count 10/29/2023 9:26 AM [facility] ANISOCYTOSIS 1+ /hpf 10/29/2023 9:26 AM [facility] - [facility] [place] SMUDGE CELLS Present /100 10/29/2023 9:26 AM [facility] Blood Venipuncture / Unknown 10/29/2023 1:54 AM CDT 10/29/2023 2:05 AM CDT Narrative [facility] - 10/29/2023 9:26 AM CDT Manual differential performed on albumin slide. Ashley SIMS HEMATOLOGY ORDERA BLES COM [facility] [employer] [facility] CLIA# [id number] [address] [facility] [address] [place]K [address] * (ABNORMAL) BASIC METABOLIC PANEL (10/29/2023 1:54 AM CDT) SODIUM 136 136 - 145 mmol/L 10/29/2023 2:47 AM CDT [facility] - [facility] POTASSIUM 4.2 3.5 - 5.0 mmol/L 10/29/2023 2:47 AM T [facility] CHLORIDE 102 98 - 107 mmol/L 10/29/2023 2:47 AM [facility] CO2 24 22 - 29 mmol/L 10/29/2023 2:47 AM [facility] CALCIUM 8.5(L) 8.6 - 10.2 mg/dL 10/29/2023 2:47 AM T [facility] BUN 22 8 - 23 mg/dL 10/29/2023 2:47 AM [facility] CREATININE 1.03(H) 0.51 - 0.95 mg/dL 10/29/2023 2:47 AM [facility] Comment:The GFR result is no t clinically significant on patients <18 or >70 years of age. GLUCOSE 117(H) 74 - 99 mg/dL 10/29/2023 2:47 AM [facility] GFR 55 mL/min/1.7 3 sq meter 10/29/2023 2:47 AM [facility] Comment:eGFR calculated with 2020 CKD-EPI equation. Vegetarian diet, extremely high or low muscle mass, and may affect results. Cystatin C with Glomerular Filtration Rate is a suitable alternative for these patients. ANION GAP 10 8 - 16 mmol/L 10/29/2023 2:47 AM T [facility] Blood Venipuncture / Unknown 10/29/2023 1:54 AM CDT 10/29/2023 2:04 AM CDT Ashley SIMS CHEMISTRY ORDERAB LES [facility] CLIA# [id number] [address] [facility] [place] [facility] [place] [address] [place] [address] * (ABNORMAL) CBC WITH DIFFERENTIAL (10/29/2023 1:54 AM CDT) WBC 14.5(H) 4.0 - 9.8 K/uL 10/29/2023 7:06 AM [facility]ORATORY SERVICES - [facility] RBC 3.15(L) 3.90 - 4.90 M/uL 10/29/2023 7:[address] [facility] HEMOGLOBIN 9.4(L) 11.8 - 14.8 g/dL 10/29/2023 7:06 AM [facility]AT[facility] HEMATOCRIT 28.6(L) 35.5 - 44.0 % 10/29/2023 7:06 AM [facility]ORATORY [facility] MCV 90.8 82.0 - 99.0 fL 10/29/2023 7:06 AM [facility] MCH 29.8 27.2 - 32.6 pg 10/29/2023 7:06 AM [facility] MCHC 32.9 31.5 - 35.5 g/dL 10/29/2023 7:[address] [facility] RDW 14.8(H) 11.5 - 14.5 % 10/29/2023 7:[address] [facility] RDW-STDEV 49.2(H) 37.1 - 48.7 fL 10/29/2023 7:[address] [facility] PLATELETS 245 140 - 350 K/uL 10/29/2023 7:[address] [facility] MPV 10.6 9.3 - 12.4 fL 10/29/2023 7:[address] [facility] Blood Venipuncture / Unknown 10/29/2023 1:54 AM CDT 10/29/2023 2:05 AM CDT Ashley SIMS HEMATOLOGY ORDERA BLES [facility] CLIA# [id number] [address] [facility] [address] [place] [address] * (ABNORMAL) POC GLUCOSE (10/28/2023 10:37 PM CDT) GLUCOSE POC 126(H) 74 - 99 mg/dL 10/28/2023 10:37 PM CDT [facility] SPECIMEN SOURCE, GLUCOSE POC Whole Blood 10/28/2023 10:37 PM CDT [facility] Blood, whole 10/28/2023 10:3 7 PM CDT 10/28/2023 10:45 PM CDT Edinson Ferrell MD POINT OF CARE TESTIN G Performing Organization Address [facility]/ZIP Co de Phone Number [facility] CLIA# [id number] [address] [place] [address] * (ABNORMAL) POC GLUCOSE (10/28/2023 12:19 PM CDT) GLUCOSE POC 166(H) 74 - 99 mg/dL 10/28/2023 12:19 PM CDT [facility] SPECIMEN SOURCE, GLUCOSE POC Whole Blood 10/28/2023 12:19 PM CDT [facility] Blood, whole 10/28/2023 12:1 9 PM CDT 10/28/2023 12:34 PM CDT Edinson Ferrell MD POINT OF CARE TESTIN G Performing Organization Address [facility]/ZIP Co de Phone Number [facility] CLNH# [id number] [address] [place] [address] * (ABNORMAL) POC GLUCOSE (10/28/2023 8:36 AM CDT) GLUCOSE POC 123(H) 74 - 99 mg/dL 10/28/2023 8:36 AM CDT [facility] SPECIMEN SOURCE, GLUCOSE POC Whole Blood 10/28/2023 8:36 AM CDT [facility] Blood, whole 10/28/2023 8:36 AM CDT 10/28/2023 8:45 AM CDT Edinson Ferrell MD POINT OF CARE TESTIN Patrick [facility] CLIA# [id number] [address] [place] [address] * (ABNORMAL) POC GLUCOSE (10/27/2023 6:00 PM CDT) GLUCOSE POC 169(H) 74 - 99 mg/dL 10/27/2023 6:00 PM CDT [facility] SPECIMEN SOURCE, GLUCOSE POC Whole Blood 10/27/2023 6:00 PM CDT [facility] Blood, whole 10/27/2023 6:00 PM CDT 10/27/2023 6:08 PM CDT Edinson Ferrell MD POINT OF CARE TESTCHRISTY Patrick Performing Organization Address [facility]/ZIP Co de Phone Number [facility] CLIA# [id number] [address] [place] [address] * (ABNORMAL) POC GLUCOSE (10/27/2023 1:20 PM CDT) GLUCOSE POC 126(H) 74 - 99 mg/dL 10/27/2023 1:20 PM CDT [facility] SPECIMEN SOURCE, GLUCOSE POC Whole Blood 10/27/2023 1:20 PM CDT [facility] Blood, whole 10/27/2023 1:20 PM CDT 10/27/2023 1:33 PM CDT Edinson Ferrell MD POINT OF CARE TESTCHRISTY Patrick [facility] CLIA# [id number] [address] [place] [address] * (ABNORMAL) POC GLUCOSE (10/27/2023 10:14 AM CDT) GLUCOSE POC 188(H) 74 - 99 mg/dL 10/27/2023 10:14 AM CDT [facility] SPECIMEN SOURCE, GLUCOSE POC Whole Blood 10/27/2023 10:14 AM CDT [facility] Blood, whole 10/27/2023 10:1 4 AM CDT 10/27/2023 10:23 AM CDT Edinson Ferrell MD POINT OF CARE TESTIN G Performing Organization Address City/[facility]/ZIP Co de Phone Number [facility] CLIA# [id number] [address] [place] [address] * (ABNORMAL) POC GLUCOSE (10/27/2023 8:06 AM CDT) GLUCOSE POC 134(H) 74 - 99 mg/dL 10/27/2023 8:06 AM CDT [facility] SPECIMEN SOURCE, GLUCOSE POC Whole Blood 10/27/2023 8:06 AM CDT [facility] Blood, whole 10/27/2023 8:06 AM CDT 10/27/2023 8:19 AM CDT Edinson Ferrell MD POINT OF CARE TESTIN G [facility] CLIA# [id number] [address] [place] [address] * (ABNORMAL) POC GLUCOSE (10/26/2023 9:08 PM CDT) GLUCOSE POC 141(H) 74 - 99 mg/dL 10/26/2023 9:08 PM CDT [facility] SPECIMEN SOURCE, GLUCOSE POC Whole Blood 10/26/2023 9:08 PM CDT [facility] LABORAT[facility] SERVICES [facility] COMMENT, GLU POC Notified RN/MD 10/26/2023 9:08 PM CDT [facility] LABOR[facility] SERVICES [facility] Blood, whole 10/26/2023 9:08 PM CDT 10/26/2023 9:19 PM CDT Edinson Ferrell MD POINT OF CARE TESTIN G Performing Organization Address City/[facility]/ZIP Co de Phone Number [facility]# [id number] [address] [place] [address] * MAGNESIUM LEVEL (10/26/2023 5:51 PM CDT) Pathologist [facility] MAGNESIUM 2.4 1.6 - 2.4 mg/dL 10/26/2023 6:33 PM CDT [facility] LABORATORY SERVICES [facility] Blood Venipuncture / Unknown 10/26/2023 5:51 PM CDT 10/26/2023 5:57 PM CDT Ashley SIMS CHEMISTRY ORDERAB LES Performing Organization Address [facility]/ZIP Co de Phone Number [facility] [employer] [facility]# [id number] [address] [place] [address] * (ABNORMAL) BASIC METABOLIC PANEL (10/26/2023 5:51 PM CDT) SODIUM 135(L) 136 - 145 mmol/L 10/26/2023 6:33 PM CDT [facility] LABORATORY SERVICES [facility] POTASSIUM 4.5 3.5 - 5.0 mmol/L 10/26/2023 6:33 PM CDT [facility] SERVICES [facility] Comment:Slightly hemolyzed. Result may be falsely elevated. CHLORIDE 101 98 - 107 mmol/L 10/26/2023 6:33 PM CDT [facility] SERVICES [facility] CO2 22 22 - 29 mmol/L 10/26/2023 6:33 PM CDT [facility]OR[facility] SERVICES [facility] CALCIUM 8.7 8.6 - 10.2 mg/dL 10/26/2023 6:33 PM CDT [facility] BUN 29(H) 8 - 23 mg/dL 10/26/2023 6:33 PM CDT [facility] CREATININE 0.87 0.51 - 0.95 mg/dL 10/26/2023 6:33 PM CDT [facility] Comment:The GFR result is no t clinically significant on patients <18 or >70 years of age. GLUCOSE 112(H) 74 - 99 mg/dL 10/26/2023 6:33 PM CDT [facility] GFR >60 mL/min/1.7 3 sq meter 10/26/2023 6:33 PM CDT [facility] Comment:eGFR calculated with 2020 CKD-EPI equation. Vegetarian diet, extremely high or low muscle mass, and may affect results. Cystatin C with Glomerular Filtration Rate is a suitable alternative for these patients. ANION GAP 12 8 - 16 mmol/L 10/26/2023 6:33 PM CDT [facility] Blood Venipuncture / Unknown 10/26/2023 5:51 PM CDT 10/26/2023 5:57 PM CDT Ashley SIMS CHEMISTRY ORDERAB LES [facility]# [id number] [address] [place] [address] * (ABNORMAL) POC GLUCOSE (10/26/2023 5:50 PM CDT) GLUCOSE POC 111(H) 74 - 99 mg/dL 10/26/2023 5:50 PM CDT [facility] SPECIMEN SOURCE, GLUCOSE POC Whole Blood 10/26/2023 5:50 PM CDT [facility] Blood, whole 10/26/2023 5:50 PM CDT 10/26/2023 6:35 PM CDT Edinson Ferrell MD POINT OF CARE TESTCHRISTY Patrick [facility]# [id number] [address] [place] [address] * (ABNORMAL) POC GLUCOSE (10/26/2023 12:09 PM CDT) GLUCOSE POC 169(H) 74 - 99 mg/dL 10/26/2023 12:09 PM CDT [facility]OR[facility] SERVICES [facility] SPECIMEN SOURCE, GLUCOSE POC Whole Blood 10/26/2023 12:09 PM CDT [facility] SERVICES [facility] Blood, whole 10/26/2023 12:0 9 PM CDT 10/26/2023 12:25 PM CDT Edinson Ferrell MD POINT OF CARE TESTCHRISTY Patrick Performing Organization Address [facility]/ZIP Co de Phone Number [facility] CLIA# [id number] [address] [place] [address] * (ABNORMAL) POC GLUCOSE (10/26/2023 7:56 AM CDT) GLUCOSE POC 102(H) 74 - 99 mg/dL 10/26/2023 7:56 AM CDT [facility] SPECIMEN SOURCE, GLUCOSE POC Whole Blood 10/26/2023 7:56 AM CDT [facility] Blood, whole 10/26/2023 7:56 AM CDT 10/26/2023 8:17 AM CDT Edinson Ferrell MD POINT OF CARE TESTCHRISTY Nguyen [facility]# [id number] [address] [place] [address] * (ABNORMAL) MANUAL DIFFERENTIAL (10/26/2023 5:04 AM CDT) SEGMENTED NEUTROPHILS 74 % 10/26/2023 7:27 AM CDT [employer] LABORATORY SERVICES - [facility] LYMPHOCYTES RELATIVE 8(L) 43 - 53 % 10/26/2023 7:27 AM CDT [facility]ATORY SERVICES - [facility] ATYPICAL LYMPHOCYTES RELATIVE 3 0 - 5 % 10/26/2023 7:27 AM CDT [facility] - [facility] MONOCYTES RELATIVE 14 % 10/26/2023 7:27 AM CDT [facility] - [facility] EOSINOPHILS RELATIVE 1 % 10/26/2023 7:27 AM CDT [facility]ORY SERVICES - [facility] NEUTROPHILS ABSOLUTE COUNT 11.89(H) 1.90 - 7.00 K/uL 10/26/2023 7:27 AM CDT [facility] LABORATORY SERVICES - [facility] LYMPHOCYTES ABSOLUTE 1.32 0.70 - 4.50 K/uL 10/26/2023 7:27 AM T [facility]ATORY SERVICES - [facility] MONOCYTES ABSOLUTE 2.20(H) 0.10 - 1.30 K/uL 10/26/2023 7:27 AM CDT [facility]ATORY SERVICES - [facility] EOSINOPHILS ABSOLUTE 0.15 0.00 - 0.70 K/uL 10/26/2023 7:27 AM CDT [facility]ORY [facility] - [facility] TOTAL CELLS COUNTED IN DIFF 109 10/26/2023 7:27 AM T [facility] - [facility] RBC MORPHOLOGY abnormal 10/26/2023 7:27 AM T [facility] - [facility] PLATELET EST. Consistent w Count 10/26/2023 7:27 AM T [facility]ORY [facility] - [facility] PLATELET MORPHOLOGY abnormal 10/26/2023 7:27 AM CDT [facility]ORY [facility] - [facility] ANISOCYTOSIS 1+ /hpf 10/26/2023 7:27 AM CDT [facility]ORY [facility] - [facility] POIKILOCYTES 1+ /hpf 10/26/2023 7:27 AM CDT [facility]ORY [facility] - [facility] OVALOCYTES 1+ /hpf 10/26/2023 7:27 AM T [facility]ATORY SERVICES - [facility] CRENATED RBCS Present 10/26/2023 7:27 AM T [facility] [facility]ATORY SERVICES - [facility] GIANT PLATELETS Present 7:27 AM [facility] Blood Venipuncture / Unknown 10/26/2023 5:04 AM CDT 10/26/2023 5:11 AM CDT Tana Thorne PA-C HEMATOLOGY ORDE [employer] [facility] CLIA# [id number] [address] [facility] [place] [address] * (ABNORMAL) BASIC METABOLIC PANEL (10/26/2023 5:04 AM CDT) SODIUM 135(L) 136 - 145 mmol/L 10/26/2023 6:11 AM [facility] POTASSIUM 3.9 3.5 - 5.0 mmol/L 10/26/2023 6:11 AM [facility] [employer] [facility] CHLORIDE 101 98 - 107 mmol/L 10/26/2023 6:11 AM [facility] CO2 23 22 - 29 mmol/L 10/26/2023 6:11 AM [facility] [employer] [facility] CALCIUM 8.6 8.6 - 10.2 mg/dL 10/26/2023 6:11 AM [facility] LABORATORY [facility] BUN 31(H) 8 - 23 mg/dL 10/26/2023 6:11 AM [facility] CREATININE 0.96(H) 0.51 - 0.95 mg/dL 10/26/2023 6:11 AM [facility] LABORATORY [facility] Comment:The GFR result is no t clinically significant on patients <18 or >70 years of age. GLUCOSE 100(H) 74 - 99 mg/dL 10/26/2023 6:11 AM [facility] [employer] [facility] GFR 60 mL/min/1.7 3 sq meter 10/26/2023 6:11 AM [facility] [employer] [facility] Comment:eGFR calculated with 2020 CKD-EPI equation. Vegetarian diet, extremely high or low muscle mass, and may affect results. Cystatin C with Glomerular Filtration Rate is a suitable alternative for these patients. ANION GAP 11 8 - 16 mmol/L 10/26/2023 6:11 AM [employer] LABORATORY SERVICES - [facility] Blood Venipuncture / Unknown 10/26/2023 5:04 AM CDT 10/26/2023 5:11 AM CDT Tana Thorne PA-C CHEMISTRY ORDER [place] [facility] LABORATORY SERVICES [facility] CLIA# [id number] [address] [place] [address] * (ABNORMAL) CBC WITH DIFFERENTIAL (10/26/2023 5:04 AM CDT) WBC 16.0(H) 4.0 - 9.8 K/uL 10/26/2023 5:38 AM CDT [employer] LABORATORY SERVICES - [facility] RBC 3.27(L) 3.90 - 4.90 M/uL 10/26/2023 5:38 AM CDT [employer] LABORATORY SERVICES [facility] HEMOGLOBIN 9.9(L) 11.8 - 14.8 g/dL 10/26/2023 5:38 AM T [facility] LABORATORY SERVICES - [facility] HEMATOCRIT 29.8(L) 35.5 - 44.0 % 10/26/2023 5:38 AM CDT [facility] LABORATORY SERVICES - [facility] MCV 91.1 82.0 - 99.0 fL 10/26/2023 5:38 AM CDT [employer] LABORATORY SERVICES - [facility] MCH 30.3 27.2 - 32.6 pg 10/26/2023 5:38 AM CDT [facility] - [facility] MCHC 33.2 31.5 - 35.5 g/dL 10/26/2023 5:38 AM CDT [employer] LABORATORY SERVICES - [facility] RDW 15.0(H) 11.5 - 14.5 % 10/26/2023 5:38 AM CDT [employer] LABORATORY SERVICES - [facility] RDW-STDEV 49.8(H) 37.1 - 48.7 fL 10/26/2023 5:38 AM CDT [employer] LABORATORY SERVICES - [facility] PLATELETS 186 140 - 350 K/uL 10/26/2023 5:38 AM CDT [facility] LABORATORY SERVICES - [facility] MPV 11.5 9.3 - 12.4 fL 10/26/2023 5:38 AM CDT [facility] LABORATORY SERVICES - [facility] Blood Venipuncture / Unknown 10/26/2023 5:04 AM CDT 10/26/2023 5:11 AM CDT Tana Thorne PA-C HEMATOLOGY JAMES DIANA [facility] CLIA# [id number] [address] [place] [address] * (ABNORMAL) POC GLUCOSE (10/25/2023 7:27 PM CDT) GLUCOSE POC 144(H) 74 - 99 mg/dL 10/25/2023 7:27 PM CDT [facility] LABORATORY [facility] SPECIMEN SOURCE, GLUCOSE POC Whole Blood 10/25/2023 7:27 PM CDT [facility] LABORATORY [facility] Blood, whole 10/25/2023 7:27 PM CDT 10/25/2023 7:55 PM CDT Edinson Ferrell MD POINT OF CARE TESTIN G [facility] CLIA# [id number] [address] [place] [address] * (ABNORMAL) POC GLUCOSE (10/25/2023 5:25 PM CDT) GLUCOSE POC 100(H) 74 - 99 mg/dL 10/25/2023 5:25 PM CDT [facility] LABORATORY [facility] SPECIMEN SOURCE, GLUCOSE POC Whole Blood 10/25/2023 5:25 PM CDT [facility] LABORATORY [facility] Blood, whole 10/25/2023 5:25 PM CDT 10/25/2023 5:58 PM CDT Edinson Ferrell MD POINT OF CARE TESTIN G Performing Organization Address [facility]/ZIP Co de Phone Number [facility] [employer] [facility]# [id number] [address] [place] [address] * (ABNORMAL) POC GLUCOSE (10/25/2023 11:42 AM CDT) GLUCOSE POC 122(H) 74 - 99 mg/dL 10/25/2023 11:42 AM CDT [facility] SPECIMEN SOURCE, GLUCOSE POC Whole Blood 10/25/2023 11:42 AM CDT [facility] COMMENT, GLU POC Notified RN/MD 10/25/2023 11:42 AM CDT [facility] Blood, whole 10/25/2023 11:4 2 AM CDT 10/25/2023 11:59 AM CDT Edinson Ferrell MD POINT OF CARE TESTCHRISTY Nguyen Performing Organization Address [facility] Co de Phone Number [facility] [employer] [facility]# [id number] [address] [facility] [place] [address] * ECHOCARDIOGRAM W/ CONTRAST AGENT (10/25/2023 7:29 AM CDT) EJECTION FRACTION 65 INTERFACE SYSTEM 10/25/2023 6:58 AM CDT Narrative INTERFACE SYSTEM - 10/25/2023 7:52 AM CDT [facility] [address] [place] [address] [email or web address] [email or web address] Echocardiogram Patient: ? Zee Martinez MRN: ? [id number] Study ID: ?[id number] Gender: ?F : ? 1945 Age: ? 78 Race: ?CAU Height ? 160cm Study Date: ?10/25/2023 Weight: ?60.8kg Access. #: ? [id number] Account #: ? [id number] BP: *Referring Physician:* Tana Thorne Jacob *Ordering Physician:* ??Tana Thorne enforcement officer: Nurse: Indications: S/P CABG. STUDY CONCLUSIONS: SUMMARY: [...] AM. ?Prepared and Electronically Authenticated Haylee Rosario [id number] Procedure Note Haylee Rosario MD - 10/25/[address] [address] [email or web address] Echocardiogram Patient: Zee Martinez Study ID: [id number] Gender: F :1945 Age: 78 Race: CAU Height 160cm Study Date:10/25/2023 Weight: 60.8kg Access. #:[id number] BP: *Referring Physician:* Tana Thorne Jacob *Ordering Physician:* Tana Thorne enforcement officer: Nurse: Indications: S/P CABG. STUDY CONCLUSIONS: SUMMARY: [...] 06:58 AM. Preparedand Electronically Authenticated Haylee Rosario [id number] Tana Thorne PA-C US ORDERABLES INTERFACE SYSTEM Refer to clinic/hospital department * (ABNORMAL) POC GLUCOSE (10/25/2023 7:25 AM CDT) GLUCOSE POC 109(H) 74 - 99 mg/dL 10/25/2023 7:25 AM CDT [facility] SPECIMEN SOURCE, GLUCOSE POC Whole Blood 10/25/2023 7:25 AM CDT [facility] COMMENT, GLU POC Notified RN/MD 10/25/2023 7:25 AM CDT [facility] [employer] [facility] Blood, whole 10/25/2023 7:25 AM CDT 10/25/2023 8:01 AM CDT Edinson Ferrell MD POINT OF CARE TESTIN G [facility] [employer] [facility]# [id number] [address] [place] [address] * XR CHEST PA OR AP 1 VW (10/25/2023 6:23 AM CDT) Anatomical Region Laterality Modality Chest Computed Radiogr aphy 10/25/2023 6:23 AM CDT Impressions 10/25/2023 5:34 PM CDT : Removal of mediastinal drains and left-sided chest tube. No pneumothorax. New small bilateral pleural effusions. There is also new bilateral basilar atelectasis. DICTATION LOCATION: Location 2 - [facility] 10/25/2023 5:34 PM CDT XR CHEST PA [...] and there is bilateral basilar atelectasis. Tana Thorne PA-C DIAGNOSTIC IMAG ING ORDERABLES * (ABNORMAL) MANUAL DIFFERENTIAL (10/25/2023 4:09 AM CDT) SEGMENTED NEUTROPHILS 77 % 10/25/2023 6:05 AM CDT [facility] LYMPHOCYTES RELATIVE 7(L) 43 - 53 % 10/25/2023 6:05 AM T [facility] - [facility] ATYPICAL LYMPHOCYTES RELATIVE 1 0 - 5 % 10/25/2023 6:05 AM T [facility] - [facility] MONOCYTES RELATIVE 16 % 10/25/2023 6:05 AM T [facility] LABORATORY SERVICES [facility] NEUTROPHILS ABSOLUTE COUNT 19.02(H) 1.90 - 7.00 K/uL 10/25/2023 6:05 AM [facility] LABORATORY SERVICES [facility] LYMPHOCYTES ABSOLUTE 1.69 0.70 - 4.50 K/uL 10/25/2023 6:05 AM CDT [facility] LABORATORY SERVICES - [facility] MONOCYTES ABSOLUTE 3.85(H) 0.10 - 1.30 K/uL 10/25/2023 6:05 AM T [facility] LABORATORY SERVICES - [facility] TOTAL CELLS COUNTED IN DIFF 103 10/25/2023 6:05 AM CDT [facility] LABORATORY SERVICES - [facility] RBC MORPHOLOGY abnormal 10/25/2023 6:05 AM T [facility] LABORATORY SERVICES - [facility] PLATELET EST. Consistent w Count 10/25/2023 6:05 AM T [facility] LABORATORY SERVICES - [facility] ANISOCYTOSIS 1+ /hpf 10/25/2023 6:05 AM T [facility] LABORATORY SERVICES - [facility] POIKILOCYTES 1+ /hpf 10/25/2023 6:05 AM T [facility] LABORATORY SERVICES - [facility] CRENATED RBCS Present 10/25/2023 6:05 AM T [facility]ATORY SERVICES - [facility] Blood Venipuncture / Unknown 10/25/2023 4:09 AM CDT 10/25/2023 4:14 AM CDT Tana Thorne PA-C HEMATOLOGY ORDE [employer] [facility] LABORATORY SERVICES - [facility]# [id number] [address] [facility] [place] [address] * (ABNORMAL) BASIC METABOLIC PANEL (10/25/2023 4:09 AM CDT) SODIUM 135(L) 136 - 145 mmol/L 10/25/2023 4:56 AM CDT [facility]ORATORY SERVICES - [facility] POTASSIUM 3.7 3.5 - 5.0 mmol/L 10/25/2023 4:56 AM CDT [facility] LABORATORY SERVICES - [facility] CHLORIDE 101 98 - 107 mmol/L 10/25/2023 4:56 AM CDT [facility] LABORATORY SERVICES - [facility] CO2 24 22 - 29 mmol/L 10/25/2023 4:56 AM CDT [facility] LABORATORY SERVICES - [facility] CALCIUM 8.8 8.6 - 10.2 mg/dL 10/25/2023 4:56 AM T [facility] BUN 34(H) 8 - 23 mg/dL 10/25/2023 4:56 AM [facility] CREATININE 1.14(H) 0.51 - 0.95 mg/dL 10/25/2023 4:56 AM [facility] Comment:The GFR result is no t clinically significant on patients <18 or >70 years of age. GLUCOSE 105(H) 74 - 99 mg/dL 10/25/2023 4:56 AM [facility] GFR 49 mL/min/1.7 3 sq meter 10/25/2023 4:56 AM [facility] Comment:eGFR calculated with 2020 CKD-EPI equation. Vegetarian diet, extremely high or low muscle mass, and may affect results. Cystatin C with Glomerular Filtration Rate is a suitable alternative for these patients. ANION GAP 10 8 - 16 mmol/L 10/25/2023 4:56 AM [facility] Blood Venipuncture / Unknown 10/25/2023 4:09 AM CDT 10/25/2023 4:14 AM CDT Tana Thorne PA-C CHEMISTRY ORDER [place] [facility]# [id number] [address] [place] [address] * (ABNORMAL) CBC WITH DIFFERENTIAL (10/25/2023 4:09 AM CDT) WBC 24.8(H) 4.0 - 9.8 K/uL 10/25/2023 5:09 AM T [facility] RBC 3.48(L) 3.90 - 4.90 M/uL 10/25/2023 5:09 AM [facility] HEMOGLOBIN 10.5(L) 11.8 - 14.8 g/dL 10/25/2023 5:09 AM [facility] LABORATORY SERVICES - [facility] Comment:Significant change f rom prior result, correlate clinically and redraw if necessary. HEMATOCRIT 31.3(L) 35.5 - 44.0 % 10/25/2023 5:09 AM [facility] LABORATORY SERVICES [facility] MCV 89.9 82.0 - 99.0 fL 10/25/2023 5:09 AM [facility] LABORATORY SERVICES - [facility] MCH 30.2 27.2 - 32.6 pg 10/25/2023 5:09 AM [facility] LABORATORY SERVICES [facility] MCHC 33.5 31.5 - 35.5 g/dL 10/25/2023 5:09 AM [facility] [employer] SERVICES [facility] RDW 15.1(H) 11.5 - 14.5 % 10/25/2023 5:09 AM [facility] LABORATORY SERVICES [facility] RDW-STDEV 49.2(H) 37.1 - 48.7 fL 10/25/2023 5:09 AM [facility] [employer] LABORATORY SERVICES [facility] PLATELETS 164 140 - 350 K/uL 10/25/2023 5:09 AM [facility] [employer] SERVICES [facility] MPV 12.0 9.3 - 12.4 fL 10/25/2023 5:09 AM [facility] [employer] SERVICES [facility] Blood Venipuncture / Unknown 10/25/2023 4:09 AM CDT 10/25/2023 4:14 AM CDT Tana Thorne PA-C HEMATOLOGY JAMES DIANA [facility] [employer] [facility] CLIA# [id number] [address] [facility] [address] * (ABNORMAL) POC GLUCOSE (10/24/2023 8:06 PM CDT) GLUCOSE POC 146(H) 74 - 99 mg/dL 10/24/2023 8:06 PM T [facility] LABORATORY [facility] SPECIMEN SOURCE, GLUCOSE POC Whole Blood 10/24/2023 8:06 PM [facility] LABORATORY [facility] Blood, whole 10/24/2023 8:06 PM CDT 10/24/2023 8:14 PM CDT Edinson Ferrell MD POINT OF CARE TESTIN Performing Organization Address [facility]/ZIP Co de Phone Number [facility] CLIA# [id number] [address] [place] [address] * (ABNORMAL) POC GLUCOSE (10/24/2023 4:49 PM CDT) GLUCOSE POC 112(H) 74 - 99 mg/dL 10/24/2023 4:49 PM CDT [facility] SPECIMEN SOURCE, GLUCOSE POC Whole Blood 10/24/2023 4:49 PM CDT [facility] COMMENT, GLU POC Notified RN/MD 10/24/2023 4:49 PM CDT [facility] Blood, whole 10/24/2023 4:49 PM CDT 10/24/2023 5:29 PM CDT Edinson Ferrell MD POINT OF CARE TESTCHRISTY Nguyen Performing Organization Address [facility]/ZIP Co de Phone Number [facility]# [id number] [address] [place] [address] * TRANSFUSE RED BLOOD CELLS (10/24/2023 1:45 PM CDT) Tana Thorne PA-C BLOOD TRANSFUSI ON ORDERABLES * TRANSFUSE RED BLOOD CELLS (10/24/2023 1:45 PM CDT) Tana Thorne PA-C BLOOD TRANSFUSI ON ORDERABLES * (ABNORMAL) POC GLUCOSE (10/24/2023 11:59 AM CDT) GLUCOSE POC 132(H) 74 - 99 mg/dL 10/24/2023 11:59 AM CDT [facility] SPECIMEN SOURCE, GLUCOSE POC Whole Blood 10/24/2023 11:59 AM CDT [facility] - [facility] COMMENT, GLU POC Notified RN/MD 10/24/2023 11:59 AM CDT [facility] - [facility] Blood, whole 10/24/2023 11:5 9 AM CDT 10/24/2023 5:25 PM CDT Edinson Ferrell MD POINT OF CARE TESTIN G Performing Organization Address [facility]/ZIP Co de Phone Number [facility] LABORATORY SERVICES - [facility] CLIA# [id number] [address] [place] [id number] * TYPE AND SCREEN (10/24/2023 9:35 AM CDT) ABO GROUP O 10/24/2023 10:57 AM CDT [facility]AT[facility] SERVICES -- [facility] RH (D) TYPE Positive 10/24/2023 10:57 AM CDT [facility] ANTIBODY SCREEN Negative 10/24/2023 10:57 AM CDT [facility] Blood Venipuncture / Unknown 10/24/2023 9:35 AM CDT 10/24/2023 9:39 AM CDT Tana Thorne PA-C BLOOD BANK JAMES DIANA Performing Organization Address [facility]/ZIP Co de Phone Number [id number] [address] [place] [address] * PREPARE RED BLOOD CELLS (10/24/2023 8:54 AM CDT) COMPONENT TYPE [id number] [facility] COMPONENT IDENTIFICATION [id number] [facility] UNIT ABO O [facility] UN[facility] RH NEG [facility] CROSSMATCH Compatible [facility] COMPONENT STATUS Transfused [facility] -- [facility] COMPONENT EXPIRATION DATE/TIME [id number] [facility] -- [facility] COMPONENT CODING SYSTEM 9500 [facility] VOLUME, BLOOD PRODUCT 350 [facility] -- [facility] Other, specify 10/24/2023 8: 54 AM CDT Tana Thorne PA-C LAB TRANSFUSION ORDERABLES Performing Organization Address City/[facility]/ZIP Co de Phone Number [facility] -- [facility] CLIA# [id number] [address] [place] [address] * (ABNORMAL) POC GLUCOSE (10/24/2023 8:11 AM CDT) GLUCOSE POC 110(H) 74 - 99 mg/dL 10/24/2023 8:11 AM CDT [facility] SPECIMEN SOURCE, GLUCOSE POC Whole Blood 10/24/2023 8:11 AM CDT [facility] - [facility] Blood, whole 10/24/2023 8:11 AM CDT 10/24/2023 8:41 AM CDT Edinson Ferrell MD POINT OF CARE TESTIN G [facility] - [facility]# [id number] [address] [place] [address] * EKG 12-LEAD (10/24/2023 7:07 AM CDT) 10/24/2023 7:07 AM CDT Narrative INTERFACE SYSTEM - 10/24/2023 8:39 AM CDT ? [facility] ? [address] [place] [address] ? Test Date: ?2023-10-24 Pat Name: ? ZEE MARTINEZ ? Department: ?? 60 ?Room: ? 4090 1 Gender: ? Female ? Fisher Lampara Net: ?? [id number] : ?[id number] ? Requested By: SARBJIT BROOKS S Order Number: [id number] ? Reading MD: ?? Deryk Bryan ? Measurements Intervals ?[place] ? Rate: ? 120 ?P: ?0 AR: ? 0 ?QRS: ?22 QRSD: ? 77 ? T: ?83 QT: ? 294 ? QTc: ?415 ? Interpretive Statements ATRIAL FIBRILLATION WITH RAPID VENTRICULAR RESPONSE NONSPECIFIC T-WAVE ABNORMALITY ABNORMAL RHYTHM ECG Electronically Signed On 10-24-2023 8:39:51 CDT by Jovana Bryan Procedure Note Jovana Bryan MD - 10/24/2023 [facility] [address] [facility], [place] [address] Test Date: 2023-10-24 Pat Name: ZEE MARTINEZ Department: 60 Room: [facility] 1 Gender: Female Fisher Lampara Net: [id number] : 1945 Requested By: SARBJIT Martinez Order Number: [id number] Reading MD: Jovana Bryan Measurements Intervals [place] Rate: 120 P: 0 AR: 0 QRS: 22 QRSD: 77 T: 83 QT: 294 QTc: 415 Interpretive Statements ATRIAL FIBRILLATION WITH RAPID VENTRICULAR RESPONSE NONSPECIFIC T-WAVE ABNORMALITY ABNORMAL RHYTHM ECG Electronically Signed On 10-24-2023 8:39:51 CDT by Jovana Bryan Tana Thorne PA-C ECG ORDERABLES Performing Organization Address City/State/[facility] Co de Phone Number INTERFACE SYSTEM Refer to clinic/hospital department * (ABNORMAL) BLOOD GAS VENOUS (10/24/2023 4:56 AM CDT) PH BLOOD POC 7.38 7.32 - 7.43 10/24/2023 4:56 AM CDT [facility] PCO2 POC 41 38 - 50 mm Hg 10/24/2023 4:56 AM CDT [facility] PO2 POC 37 25 - 40 mm Hg 10/24/2023 4:56 AM CDT [facility] HCO3 (CALC) POC 24 22 - 29 mmol/L 10/24/2023 4:56 AM CDT [facility] HEMOGLOBIN POC 9.1(L) 11.8 - 14.8 g/dL 10/24/2023 4:56 AM CDT [facility] BASE EXCESS POC -1 No Reference Range Established mmol/L 10/24/2023 4:56 AM [facility] O2 SATURATION POC 65 40 - 70 % 10/24/2023 4:56 AM [facility] HEMATOCRIT POC 27(L) 35 - 44 % 10/24/2023 4:56 AM [facility] Comment:Estimated Value PH TEMP CORRECT 7.38 7.32 - 7.43 10/24/2023 4:56 AM [facility] PCO2 TEMP CORRECT 41 38 - 50 mm Hg 10/24/2023 4:56 AM [facility] PO2 TEMP CORRECT 37 25 - 40 mm Hg 10/24/2023 4:56 AM [facility] SPECIMEN SOURCE, GASES POC Venous 10/24/2023 4:56 AM [facility] COMMENT, GASES POC Responsible Clinical Caregiver notified 10/24/2023 4:56 AM [facility] TCO2 (CALC) POC 26 22 - 26 mmol/L 10/24/2023 4:56 AM [facility] FIO2 21.0 21.0 - 100.0 % 10/24/2023 4:56 AM [facility] PATIENT'S TEMPERATURE POC 37.0 degrees 10/24/2023 4:56 AM [facility] Blood, venous 10/24/2023 4:5 6 AM CDT 10/24/2023 4:57 AM CDT Edinson Ferrell MD ABG ORDERABLES [id number] [address] [facility] [place] [address] * (ABNORMAL) MANUAL DIFFERENTIAL (10/24/2023 4:53 AM CDT) SEGMENTED NEUTROPHILS 81 % 10/24/2023 7:55 AM CDT [facility] - [facility] LYMPHOCYTES RELATIVE 4(L) 43 - 53 % 10/24/2023 7:55 AM CDT [facility] - [facility] MONOCYTES RELATIVE 15 % 10/24/2023 7:55 AM CDT [facility] - [facility] NEUTROPHILS ABSOLUTE COUNT 23.39(H) 1.90 - 7.00 K/uL 10/24/2023 7:55 AM CDT [facility] - [facility] LYMPHOCYTES ABSOLUTE 1.06 0.70 - 4.50 K/uL 10/24/2023 7:55 AM CDT [facility] - [facility] MONOCYTES ABSOLUTE 4.25(H) 0.10 - 1.30 K/uL 10/24/2023 7:55 AM CDT [facility] TOTAL CELLS COUNTED IN DIFF 108 10/24/2023 7:55 AM T [facility] RBC MORPHOLOGY abnormal 10/24/2023 7:55 AM CDT [facility] PLATELET EST. Consistent w Count 10/24/2023 7:55 AM CDT [facility] [employer] [facility] ANISOCYTOSIS 1+ /hpf 10/24/2023 7:55 AM CDT [facility] - [facility] POIKILOCYTES 1+ /hpf 10/24/2023 7:55 AM T [facility] - . [place] CRENATED RBCS Present 10/24/2023 7:55 AM T [facility] Blood Venipuncture / Unknown 10/24/2023 4:53 AM CDT 10/24/2023 4:58 AM CDT Tana Thorne PA-C HEMATOLOGY ORDE [employer] [facility] - [facility] CLIA# [id number] [address] [facility] [place] [address] [place] [address] * (ABNORMAL) BASIC METABOLIC PANEL (10/24/2023 4:53 AM CDT) SODIUM 136 136 - 145 mmol/L 10/24/2023 6:34 AM [facility] POTASSIUM 4.2 3.5 - 5.0 mmol/L 10/24/2023 6:34 AM [facility] - [facility] CHLORIDE 102 98 - 107 mmol/L 10/24/2023 6:34 AM [facility] CO2 24 22 - 29 mmol/L 10/24/2023 6:34 AM [facility] CALCIUM 8.8 8.6 - 10.2 mg/dL 10/24/2023 6:34 AM [facility] BUN 34(H) 8 - 23 mg/dL 10/24/2023 6:34 AM [facility] CREATININE 1.48(H) 0.51 - 0.95 mg/dL 10/24/2023 6:34 AM [facility] Comment:The GFR result is no t clinically significant on patients <18 or >70 years of age. GLUCOSE 119(H) 74 - 99 mg/dL 10/24/2023 6:34 AM [facility] GFR 36 mL/min/1.7 3 sq meter 10/24/2023 6:34 AM [facility] Comment:eGFR calculated with 2020 CKD-EPI equation. Vegetarian diet, extremely high or low muscle mass, and may affect results. Cystatin C with Glomerular Filtration Rate is a suitable alternative for these patients. ANION GAP 10 8 - 16 mmol/L 10/24/2023 6:34 AM [facility] Blood Venipuncture / Unknown 10/24/2023 4:53 AM CDT 10/24/2023 4:58 AM CDT Tana Thorne PA-C CHEMISTRY ORDER [place] [facility] [employer] [facility] CLIA# [id number] [address] [facility] [place] [address] * (ABNORMAL) CBC WITH DIFFERENTIAL (10/24/2023 4:53 AM CDT) [facility] WBC 28.7(H) 4.0 - 9.8 K/uL 10/24/2023 5:21 AM CDT [facility] RBC 2.89(L) 3.90 - 4.90 M/uL 10/24/2023 5:21 AM CDT [facility] - [facility] HEMOGLOBIN 8.7(L) 11.8 - 14.8 g/dL 10/24/2023 5:21 AM CDT [facility] - [facility] HEMATOCRIT 26.6(L) 35.5 - 44.0 % 10/24/2023 5:21 AM CDT [facility] MCV 92.0 82.0 - 99.0 fL 10/24/2023 5:21 AM CDT [facility] MCH 30.1 27.2 - 32.6 pg 10/24/2023 5:21 AM CDT [facility] - [facility] MCHC 32.7 31.5 - 35.5 g/dL 10/24/2023 5:21 AM CDT [facility] - [facility] RDW 14.6(H) 11.5 - 14.5 % 10/24/2023 5:21 AM CDT [facility] RDW-STDEV 49.5(H) 37.1 - 48.7 fL 10/24/2023 5:21 AM CDT [employer] [facility] PLATELETS 148 140 - 350 K/uL 10/24/2023 5:21 AM CDT [facility] - [facility] MPV 11.9 9.3 - 12.4 fL 10/24/2023 5:21 AM CDT [facility] - [facility] Blood Venipuncture / Unknown 10/24/2023 4:53 AM CDT 10/24/2023 4:58 AM CDT Tana Thorne PA-C HEMATOLOGY JAMES DIANA [facility] - [facility] CLIA# [id number] [address] [place] [address] * (ABNORMAL) POC GLUCOSE (10/23/2023 10:24 PM CDT) GLUCOSE POC 189(H) 74 - 99 mg/dL 10/23/2023 10:24 PM CDT [facility] - [facility] SPECIMEN SOURCE, GLUCOSE POC Whole Blood 10/23/2023 10:24 PM CDT [facility] - [facility] Blood, whole 10/23/2023 10:2 4 PM CDT 10/24/2023 1:03 PM CDT Edinson Ferrell MD POINT OF CARE TESTIN G [facility] CLIA# [id number] [address] [place] [address] * (ABNORMAL) POC GLUCOSE (10/23/2023 8:26 PM CDT) Pathologist [facility] GLUCOSE POC 240(H) 74 - 99 mg/dL 10/23/2023 8:26 PM CDT [facility] - [facility] SPECIMEN SOURCE, GLUCOSE POC Whole Blood 10/23/2023 8:26 PM CDT [facility] - [facility] COMMENT, GLU POC Notified RN/MD 10/23/2023 8:26 PM CDT [facility] - [facility] Blood, whole 10/23/2023 8:26 PM CDT 10/23/2023 8:34 PM CDT Edinson Ferrell MD POINT OF CARE TESTIN G [facility] CLIA# [id number] [address] [place] [address] * (ABNORMAL) BLOOD GAS ARTERIAL (10/23/2023 5:52 PM CDT) PH BLOOD POC 7.37 7.35 - 7.45 10/23/2023 5:52 PM T [employer] LABORATORY SERVICES - [facility] PCO2 POC 37 35 - 48 mm Hg 10/23/2023 5:52 PM T [facility] - [facility] PO2 POC 75(L) 83 - 108 mm Hg 10/23/2023 5:52 PM [facility]ATORY SERVICES - [facility] HCO3 (CALC) POC 21(L) 22 - 26 mmol/L 10/23/2023 5:52 PM [facility]ORATORY SERVICES - [facility] HEMOGLOBIN POC 9.6(L) 11.8 - 14.8 g/dL 10/23/2023 5:52 PM [facility] [employer] LABORATORY SERVICES - [facility] BASE EXCESS POC -4(L) -2 - 3 mmol/L 10/23/2023 5:52 PM [facility] [employer] LABORATORY SERVICES [facility] O2 SATURATION POC 97 94 - 98 % 10/23/2023 5:52 PM [facility] [employer] LABORATORY SERVICES - [facility] HEMATOCRIT POC 29(L) 35 - 44 % 10/23/2023 5:52 PM T [facility] LABORATORY SERVICES [facility] Comment:Estimated Value PH TEMP CORRECT 7.37 7.35 - 7.45 10/23/2023 5:52 PM T [employer] LABORATORY SERVICES [facility] PCO2 TEMP CORRECT 37 35 - 48 mm Hg 10/23/2023 5:52 PM [facility] LABORATORY SERVICES - [facility] PO2 TEMP CORRECT 75(L) 83 - 108 mm Hg 10/23/2023 5:52 PM [facility] LABORATORY SERVICES [facility] SPECIMEN SOURCE, GASES POC Arterial 10/23/2023 5:52 PM [facility] [employer] LABORATORY SERVICES [facility] COMMENT, GASES POC Responsible Clinical Caregiver notified 10/23/2023 5:52 PM [facility] TCO2 (CALC) POC 23 19 - 24 mmol/L 10/23/2023 5:52 PM [facility] LABORATORY SERVICES [facility] FIO2 21.0 21.0 - 100.0 % 10/23/2023 5:52 PM [facility] [employer] LABORATORY SERVICES [facility] P/F RATIO POC 357 10/23/2023 5:52 PM [facility] [employer] LABORATORY SERVICES [facility] PATIENT'S TEMPERATURE POC 37.0 degrees 10/23/2023 5:52 PM CDT [employer] LABORATORY SERVICES - [facility] PAO2 POC 103 10/23/2023 5:52 PM CDT [facility]ATORY SERVICES - [facility] ARTERIAL/ALVEO LAR O2 RATIO 0.7300 10/23/2023 5:52 PM CDT [facility] - [facility] Blood, arterial 10/23/2023 5 :52 PM CDT 10/23/2023 5:54 PM CDT Edinson Ferrell MD ABG ORDERABLES [facility] SERVICES - [facility] CLIA# [id number] [address] [place] [address] * (ABNORMAL) MANUAL DIFFERENTIAL (10/23/2023 5:15 PM CDT) SEGMENTED NEUTROPHILS 79 % 10/23/2023 6:29 PM CDT [employer] LABORATORY SERVICES - [facility] LYMPHOCYTES RELATIVE 2(L) 43 - 53 % 10/23/2023 6:29 PM CDT [employer] [facility]ATORY SERVICES - [facility] MONOCYTES RELATIVE 19 % 10/23/2023 6:29 PM CDT [employer] [facility]ATORY SERVICES - [facility] NEUTROPHILS ABSOLUTE COUNT 24.52(H) 1.90 - 7.00 K/uL 10/23/2023 6:29 PM CDT [facility]ATORY SERVICES - [facility] LYMPHOCYTES ABSOLUTE 0.56(L) 0.70 - 4.50 K/uL 10/23/2023 6:29 PM CDT [facility] MONOCYTES ABSOLUTE 5.92(H) 0.10 - 1.30 K/uL 10/23/2023 6:29 PM CDT [employer] LABORATORY SERVICES - [facility] TOTAL CELLS COUNTED IN DIFF 110 10/23/2023 6:29 PM CDT [employer] [facility]ATORY SERVICES - [facility] RBC MORPHOLOGY abnormal 10/23/2023 6:29 PM CDT [employer] LABORATORY SERVICES - [facility] PLATELET EST. Consistent w Count 10/23/2023 6:29 PM CDT [employer] LABORATORY SERVICES - [facility] POIKILOCYTES 1+ /hpf 10/23/2023 6:29 PM CDT [facility]ORY SERVICES - [facility] CRENATED RBCS Present 10/23/2023 6:29 PM CDT [facility] SERVICES - [facility] Blood Venipuncture / Unknown 10/23/2023 5:15 PM CDT 10/23/2023 5:40 PM CDT Edinson Ferrell MD HEMATOLOGY ORDERABLE S COM Performing Organization Address [facility]/ZIP Co de Phone Number [facility] CLIA# [id number] [address] [facility] [place] [address] * MAGNESIUM LEVEL (10/23/2023 5:15 PM CDT) Pathologist [facility] MAGNESIUM 2.4 1.6 - 2.4 mg/dL 10/23/2023 6:23 PM CDT [facility] SERVICES - [facility] Blood Venipuncture / Unknown 10/23/2023 5:15 PM CDT 10/23/2023 5:40 PM CDT Edinson Ferrell MD CHEMISTRY ORDERABLES Performing Organization Address City/[facility]/ZIP Co de Phone Number [facility] CLIA# [id number] [address] [place] [address] * (ABNORMAL) BASIC METABOLIC PANEL (10/23/2023 5:15 PM CDT) SODIUM 135(L) 136 - 145 mmol/L 10/23/2023 6:23 PM CDT [facility] LABORATORY SERVICES [facility] POTASSIUM 4.8 3.5 - 5.0 mmol/L 10/23/2023 6:23 PM CDT [facility] SERVICES - [facility] CHLORIDE 103 98 - 107 mmol/L 10/23/2023 6:23 PM CDT [facility] SERVICES - [facility] CO2 21(L) 22 - 29 mmol/L 10/23/2023 6:23 PM CDT [facility] - [facility] CALCIUM 9.0 8.6 - 10.2 mg/dL 10/23/2023 6:23 PM CDT [facility] BUN 27(H) 8 - 23 mg/dL 10/23/2023 6:23 PM T [facility] CREATININE 1.29(H) 0.51 - 0.95 mg/dL 10/23/2023 6:23 PM T [facility] Comment:The GFR result is no t clinically significant on patients <18 or >70 years of age. GLUCOSE 162(H) 74 - 99 mg/dL 10/23/2023 6:23 PM T [facility] GFR 42 mL/min/1.7 3 sq meter 10/23/2023 6:23 PM T [facility] Comment:eGFR calculated with 2020 CKD-EPI equation. Vegetarian diet, extremely high or low muscle mass, and may affect results. Cystatin C with Glomerular Filtration Rate is a suitable alternative for these patients. ANION GAP 11 8 - 16 mmol/L 10/23/2023 6:23 PM T [facility] Blood Venipuncture / Unknown 10/23/2023 5:15 PM CDT 10/23/2023 5:40 PM CDT Edinson Ferrell MD CHEMISTRY ORDERABLES [facility]# [id number] [address] [place] [address] * (ABNORMAL) CBC WITH DIFFERENTIAL (10/23/2023 5:15 PM CDT) WBC 31.0(H) 4.0 - 9.8 K/uL 10/23/2023 5:58 PM CDT [facility] RBC 3.10(L) 3.90 - 4.90 M/uL 10/23/2023 5:58 PM CDT [facility] HEMOGLOBIN 9.5(L) 11.8 - 14.8 g/dL 10/23/2023 5:58 PM CDT [facility] HEMATOCRIT 29.0(L) 35.5 - 44.0 % 10/23/2023 5:58 PM CDT [facility]AT[facility] SERVICES - [facility] MCV 93.5 82.0 - 99.0 fL 10/23/2023 5:58 PM CDT [facility] SERVICES - [facility] MCH 30.6 27.2 - 32.6 pg 10/23/2023 5:58 PM CDT [facility] SERVICES - [facility] MCHC 32.8 31.5 - 35.5 g/dL 10/23/2023 5:58 PM CDT [facility] SERVICES - [facility] RDW 14.6(H) 11.5 - 14.5 % 10/23/2023 5:58 PM CDT [facility] SERVICES - [facility] RDW-STDEV 50.3(H) 37.1 - 48.7 fL 10/23/2023 5:58 PM CDT [facility]ATORY SERVICES - [facility] PLATELETS 173 140 - 350 K/uL 10/23/2023 5:58 PM CDT [facility] SERVICES - [facility] MPV 12.6(H) 9.3 - 12.4 fL 10/23/2023 5:58 PM CDT [facility] SERVICES - [facility] Blood Venipuncture / Unknown 10/23/2023 5:15 PM CDT 10/23/2023 5:40 PM CDT Edinson Ferrell MD HEMATOLOGY ORDERABLE S [facility]ORY [facility]# [id number] [address] [place] [address] * (ABNORMAL) POC GLUCOSE (10/23/2023 5:14 PM CDT) GLUCOSE POC 163(H) 74 - 99 mg/dL 10/23/2023 5:14 PM CDT [facility]ATORY SERVICES - [facility] SPECIMEN SOURCE, GLUCOSE POC Whole Blood 10/23/2023 5:14 PM CDT [facility] LABORATORY [facility] Blood, whole 10/23/2023 5:14 PM CDT 10/23/2023 5:33 PM CDT Edinson Ferrell MD POINT OF CARE TESTIN G [facility]# [id number] [address] [place] [address] * EKG 12-LEAD (10/23/2023 4:43 PM CDT) 10/23/2023 4:43 PM CDT Narrative INTERFACE SYSTEM - 10/23/2023 4:44 PM CDT ? [facility] ? [address] [place] [address] ? Test Date: ?2023-10-23 Pat Name: ? ZEEYASMANI MARTINEZ ? Department: ?? 60 ?Room: ? 4090 1 Gender: ? Female ? Fisher Lampara Net: ?? [id number] : ?[id number] ? Requested By: SARBJIT BROOKS S Order Number: [id number] ? Ashley HENDERSON: ?? Monroe Howell ? Measurements Intervals ?[place] ? Rate: ? 51 ? P: ?13 AR: ? 175 ?QRS: ?28 QRSD: ? 86 ? T: ?65 QT: ? 427 ? QTc: ?397 ? Interpretive Statements SINUS BRADYCARDIA POSSIBLE RIGHT VENTRICULAR CONDUCTION DELAY ??[RSR (QR) IN V1/V2] MARKED ST ELEVATION, CONSIDER ANTERIOR INJURY ??[MARKED ST ELEVATION W/O NORMALLY INFLECTED T-WAVE IN V2-V5] ACUTE DE Electronically Signed On 10-23-2023 16:44:36 CDT by Monroe Howell Procedure Note Monroe Howell MD - 10/23/2023 [facility] [address] [facility], [place] [address] Test Date: 2023-10-23 Pat Name: ZEE MARTINEZ Department: 60 Room: [facility] 1 Gender: Female Fisher Lampara Net: [id number] : [id number] Requested By: SARBJIT Martinez Order Number: [id number] Reading MD: Monroe Howell Measurements Intervals [place] Rate: 51 P: 13 AR: 175 QRS: 28 QRSD: 86 T: 65 QT: 427 QTc: 397 Interpretive Statements SINUS BRADYCARDIA POSSIBLE RIGHT VENTRICULAR CONDUCTION DELAY [RSR (QR) IN V1/V2] MARKED ST ELEVATION, CONSIDER ANTERIOR INJURY [MARKED ST ELEVATION W/O NORMALLY INFLECTED T-WAVE IN V2-V5] ACUTE DE Electronically Signed On 10-23-2023 16:44:36 CDT by Monroe Howell Tana Thorne PA-C ECG ORDERABLES INTERFACE SYSTEM Refer to clinic/hospital department * (ABNORMAL) POC GLUCOSE (10/23/2023 12:07 PM CDT) GLUCOSE POC 129(H) 74 - 99 mg/dL 10/23/2023 12:07 PM CDT [facility] SPECIMEN SOURCE, GLUCOSE POC Whole Blood 10/23/2023 12:07 PM CDT [facility] Blood, whole 10/23/2023 12:0 7 PM CDT 10/23/2023 5:33 PM CDT Edinson Ferrell MD POINT OF CARE TESTIN G Performing Organization Address [facility] Co de Phone Number [facility] [employer] [facility]# [id number] [address] [facility] [place] [address] * POC TEG STANDARD A (10/23/2023 10:30 AM CDT) CITRATED KAOLIN REACTION TIME (CK-R) POC 10/23/2023 1:18 PM CDT [facility] Comment: Invalid result This is a corrected result. Previous result was 10.4 min on 10/23/2023 at 1209 CDT CITRATED KAOLIN ANGLE (CK-A) POC 10/23/2023 1:18 PM CDT [facility] Comment: Invalid result This is a corrected result. Previous result was 56.6 deg on 10/23/2023 at 1209 CDT CITRATED KAOLIN MAXIMUM AMPLITUDE(CK-MA ) POC 10/23/2023 1:18 PM CDT [facility] Comment: Invalid result This is a corrected result. Previous result was 58 mm on 10/23/2023 at 1209 CDT CITRATED RAPID MAXIMUM AMPLITUDE (BEHAVIORAL SCIENCES DEPARTMENT CHAIR-MA) POC 10/23/2023 1:18 PM CDT [facility] Comment: Invalid result This is a corrected result. Previous result was 59 mm on 10/23/2023 at 1209 CDT CITRATED KAOLIN HEPARINASE REACTION TIME (CKH-RT) POC 10/23/2023 1:18 PM CDT [facility] Comment: Invalid result This is a corrected result. Previous result was 10.9 min on 10/23/2023 at 1209 CDT CITRATE FUNCTIONAL FIBRINOGEN MAX AMPLITUDE, CFF-MA POC 10/23/2023 1:18 PM CDT [facility] Comment: Invalid result This is a corrected result. Previous result was 18 mm on 10/23/2023 at 1209 CDT CITRATED FUNCTIONAL FIBRINOGEN (CFF-FLEV) POC 10/23/2023 1:18 PM CDT [facility] Comment: Invalid result This is a corrected result. Previous result was 332 mg/dl on 10/23/2023 at 1209 CDT CITRATED KAOLIN KINETICS (CK-K) POC 10/23/2023 1:18 PM CDT [facility] Comment: Invalid result This is a corrected result. Previous result was 2.7 min on 10/23/2023 at 1209 CDT 10/23/2023 10:3 0 AM CDT 10/23/2023 12:09 PM CDT Edinson Ferrell MD POINT OF CARE TESTIN G [facility]# [id number] [address] [place] [id number] * EKG 12-LEAD (10/23/2023 8:23 AM CDT) 10/23/2023 8:23 AM CDT Narrative INTERFACE SYSTEM - 10/23/2023 11:01 AM CDT ? [facility] ? [address], [place] [address] ? Test Date: ?2023-10-23 Pat Name: ? ZEE MARTINEZ ? Department: ?? 60 ?Room: ? 4090 1 Gender: ? Female ? Fisher Lampara Net: ?? [id number] : ?1945 ? Requested By: SARBJIT BROOKS S Order Number: [id number] ? Reading MD: ?? Chang Wiele ? Measurements Intervals ?[place] ? Rate: ? 64 ? P: ?70 AR: ? 193 ?QRS: ?34 QRSD: ? 75 ? T: ?62 QT: ? 393 ? QTc: ?407 ? Interpretive Statements SINUS RHYTHM WITH SINUS ARRHYTHMIA POSSIBLE RIGHT VENTRICULAR CONDUCTION DELAY ??[RSR (QR) IN V1/V2] ST ELEVATION - EXCLUDE ACUTE DE ??[MARKED ST ELEVATION W/O NORMALLY INFLECTED T-WAVE] Electronically Signed On 10-23-2023 11:01:05 CDT by Chang Villanueva Procedure Note Provider, Historical - 10/23/2023 [facility] [address] [place] [address] Test Date: 2023-10-23 Pat Name: ZEE MARTINEZ Department: 60 Room: [facility] 1 Gender: Female Fisher Lampara Net: [id number] : 1945 Requested By: SARBJIT Martinez Order Number: [id number] Reading MD: Chang Villanueva Measurements Intervals [place] Rate: 64 P: 70 AR: 193 QRS: 34 QRSD: 75 T: 62 QT: 393 QTc: 407 Interpretive Statements SINUS RHYTHM WITH SINUS ARRHYTHMIA POSSIBLE RIGHT VENTRICULAR CONDUCTION DELAY [RSR (QR) IN V1/V2] ST ELEVATION - EXCLUDE ACUTE DE [MARKED ST ELEVATION W/O NORMALLYINFLECTED T-WAVE] Electronically Signed On 10-23-2023 11:01:05 CDT by Chang Villanueva Tana Thorne PA-C ECG ORDERABLES INTERFACE SYSTEM Refer to clinic/hospital department * (ABNORMAL) POC GLUCOSE (10/23/2023 8:06 AM CDT) GLUCOSE POC 100(H) 74 - 99 mg/dL 10/23/2023 8:06 AM CDT [facility] SPECIMEN SOURCE, GLUCOSE POC Whole Blood 10/23/2023 8:06 AM CDT [facility] Blood, whole 10/23/2023 8:06 AM CDT 10/23/2023 8:41 AM CDT Edinson Ferrell MD POINT OF CARE TESTIN G [facility] CLIA# [id number] [facility] [place] [address] * POC TEG STANDARD A (10/23/2023 7:19 AM CDT) CITRATED KAOLIN REACTION TIME (CK-R) POC 10/23/2023 1:21 PM CDT [facility] Comment: Invalid result This is a corrected result. Previous result was 7.1 min on 10/23/2023 at 0855 CDT CITRATED KAOLIN ANGLE (CK-A) POC 10/23/2023 1:21 PM CDT [facility] Comment: Invalid result This is a corrected result. Previous result was 55.3 deg on 10/23/2023 at 0855 CDT CITRATED KAOLIN MAXIMUM AMPLITUDE(CK-MA ) POC 10/23/2023 1:21 PM T [facility] Comment: Invalid result This is a corrected result. Previous result was 60 mm on 10/23/2023 at 0855 CDT CITRATED RAPID MAXIMUM AMPLITUDE (BEHAVIORAL SCIENCES DEPARTMENT CHAIR-MA) POC 10/23/2023 1:21 PM CDT [facility] Comment: Invalid result This is a corrected result. Previous result was 64 mm on 10/23/2023 at 0855 CDT CITRATED [place]IN HEPARINASE REACTION TIME (CKH-RT) POC 10/23/2023 1:21 PM T [facility] Comment: Invalid result This is a corrected result. Previous result was 8.2 min on 10/23/2023 at 0855 CDT CITRATE FUNCTIONAL FIBRINOGEN MAX AMPLITUDE, CFF-MA POC 10/23/2023 1:21 PM CDT [facility] Comment: Invalid result This is a corrected result. Previous result was 21 mm on 10/23/2023 at 0855 CDT CITRATED FUNCTIONAL FIBRINOGEN (CFF-FLEV) POC 10/23/2023 1:21 PM CDT [facility] Comment: Invalid result This is a corrected result. Previous result was 380 mg/dl on 10/23/2023 at 0855 CDT CITRATED KAOLIN KINETICS (CK-K) POC 10/23/2023 1:21 PM CDT [facility] Comment: Invalid result This is a corrected result. Previous result was 3.3 min on 10/23/2023 at 0855 CDT 10/23/2023 7:19 AM CDT 10/23/2023 8:55 AM CDT Edinson Ferrell MD POINT OF CARE TESTIN Patrick Performing Organization Address City/[facility]/ZIP Co de Phone Number [facility] CLIA# [id number] [address] [place] [address] * (ABNORMAL) POC GLUCOSE (10/23/2023 7:12 AM CDT) [facility] GLUCOSE POC 123(H) 74 - 99 mg/dL 10/23/2023 7:12 AM CDT [facility] SPECIMEN SOURCE, GLUCOSE POC Whole Blood 10/23/2023 7:12 AM CDT [facility] Blood, whole 10/23/2023 7:12 AM CDT 10/23/2023 9:04 AM CDT Edinson Ferrell MD POINT OF CARE TESTIN Patrick [facility] CLIA# [id number] [address] [place] [address] * (ABNORMAL) POC GLUCOSE (10/23/2023 6:06 AM CDT) GLUCOSE POC 128(H) 74 - 99 mg/dL 10/23/2023 6:06 AM CDT [facility]ORY SERVICES - [facility] SPECIMEN SOURCE, GLUCOSE POC Whole Blood 10/23/2023 6:06 AM CDT [facility] - [facility] Blood, whole 10/23/2023 6:06 AM CDT 10/23/2023 9:04 AM CDT Edinson Ferrell MD POINT OF CARE TESTIN G [facility]ORATORY SERVICES [facility] CLIA# [id number] [address] [facility] [address] [address] * XR CHEST PA OR AP 1 [...] nasogastric tube DICTATION LOCATION: Location 4 Tana Thorne PA-C DIAGNOSTIC IMAG ING ORDERABLES * (ABNORMAL) POC GLUCOSE (10/23/2023 5:23 AM CDT) GLUCOSE POC 129(H) 74 - 99 mg/dL 10/23/2023 5:23 AM CDT [facility] LABORATORY SERVICES [facility] SPECIMEN SOURCE, GLUCOSE POC Whole Blood 10/23/2023 5:23 AM CDT [facility] LABORATORY SERVICES [facility] Blood, whole 10/23/2023 5:23 AM CDT 10/23/2023 9:04 AM CDT Edinson Ferrell MD POINT OF CARE TESTIN Patrick Performing Organization Address City/[facility]/ZIP Co de Phone Number [facility] [employer] [facility] [id number] [address] [address] * (ABNORMAL) POC GLUCOSE (10/23/2023 4:07 AM CDT) GLUCOSE POC 153(H) 74 - 99 mg/dL 10/23/2023 4:07 AM CDT [facility] SPECIMEN SOURCE, GLUCOSE POC Whole Blood 10/23/2023 4:07 AM CDT [facility] Blood, whole 10/23/2023 4:07 AM CDT 10/23/2023 9:04 AM CDT Edinson Ferrell MD POINT OF CARE TESTIN G [facility] CLIA# [id number] [address] [place] [address] * (ABNORMAL) MANUAL DIFFERENTIAL (10/23/2023 4:07 AM CDT) SEGMENTED NEUTROPHILS 78 % 10/23/2023 6:41 AM CDT [facility]ORATORY SERVICES - [facility] LYMPHOCYTES RELATIVE 0(L) 43 - 53 % 10/23/2023 6:41 AM CDT [facility] - . [place] MONOCYTES RELATIVE 22 % 10/23/2023 6:41 AM CDT [facility] NEUTROPHILS ABSOLUTE COUNT 20.54(H) 1.90 - 7.00 K/uL 10/23/2023 6:41 AM CDT [facility] LYMPHOCYTES ABSOLUTE 0.00(L) 0.70 - 4.50 K/uL 10/23/2023 6:41 AM T [facility] MONOCYTES ABSOLUTE 5.66(H) 0.10 - 1.30 K/uL 10/23/2023 6:41 AM CDT [facility] TOTAL CELLS COUNTED IN DIFF 111 10/23/2023 6:41 AM T [facility] RBC MORPHOLOGY abnormal 10/23/2023 6:41 AM T [facility] [employer] [facility] PLATELET EST. Consistent w Count 10/23/2023 6:41 AM T [facility] [employer] SERVICES - [facility] POIKILOCYTES 1+ /hpf 10/23/2023 6:41 AM T [facility] OVALOCYTES 1+ /hpf 10/23/2023 6:41 AM T [facility] Blood Venipuncture / Unknown 10/23/2023 4:07 AM CDT 10/23/2023 4:10 AM CDT Tana Thorne PA-C HEMATOLOGY ORDE RABMASON COM [facility] [employer] [facility] CLIA# [id number] [address] [place] [address] * (ABNORMAL) COMPREHENSIVE METABOLIC PANEL (10/23/2023 4:07 AM [facility]) Pathologist [facility] SODIUM 141 136 - 145 mmol/L 10/23/2023 4:44 AM [facility] [employer] [facility] LABORATORY SERVICES - . [place] POTASSIUM 3.5 3.5 - 5.0 mmol/L 10/23/2023 4:44 AM [facility] [employer] [facility] LABORATORY SERVICES - [facility] CHLORIDE 106 98 - 107 mmol/L 10/23/2023 4:44 AM [facility] [employer] LABORATORY SERVICES - [facility] [place] CO2 20(L) 22 - 29 mmol/L 10/23/2023 4:44 AM [facility] [employer] LABORATORY SERVICES - . [place] CALCIUM 9.3 8.6 - 10.2 mg/dL 10/23/2023 4:44 AM [facility] [employer] LABORATORY SERVICES - . [place] BUN 23 8 - 23 mg/dL 10/23/2023 4:44 AM [facility] [employer] [facility] CREATININE 1.04(H) 0.51 - 0.95 mg/dL 10/23/2023 4:44 AM [facility] [employer] LABORATORY SERVICES - [facility] Comment:The GFR result is no t clinically significant on patients <18 or >70 years of age. GLUCOSE 153(H) 74 - 99 mg/dL 10/23/2023 4:44 AM [facility] [employer] LABORATORY SERVICES - [facility] TOTAL PROTEIN 6.9 6.7 - 8.6 g/dL 10/23/2023 4:44 AM [facility] [employer] [facility]ATORY SERVICES [facility] ALBUMIN 4.0 3.5 - 5.2 g/dL 10/23/2023 4:44 AM [facility] [employer] [facility]ATORY SERVICES [facility] BILIRUBIN TOTAL 0.5 0.2 - 1.1 mg/dL 10/23/2023 4:44 AM [facility] [employer] [facility]ATORY SERVICES [facility] ALKALINE PHOSPHATASE 73 35 - 104 U/L 10/23/2023 4:44 AM [facility] [employer] [facility] LAB[facility]ATORY SERVICES - . [place] AST 46(H) <33 U/L 10/23/2023 4:44 AM [facility] [employer] [facility] ALT 16 <34 U/L 10/23/2023 4:44 AM [facility] [employer] [facility] GFR 55 mL/min/1.7 3 sq meter 10/23/2023 4:44 AM [facility] LABORATORY SERVICES [facility] Comment:eGFR calculated with 2020 CKD-EPI equation. Vegetarian diet, extremely high or low muscle mass, and may affect results. Cystatin C with Glomerular Filtration Rate is a suitable alternative for these patients. ANION GAP 15 8 - 16 mmol/L 10/23/2023 4:44 AM [facility] [employer] [facility] Blood Venipuncture / Unknown 10/23/2023 4:07 AM CDT 10/23/2023 4:10 AM CDT [facility] LAB[facility] - 10/23/2023 4:44 AM CDT Samples containing indocyanine green cause interferences on Total and/or Direct Bilirubin and must not be measured. Tana Thorne PA-C CHEMISTRY ORDER [place] [facility] [employer] [facility] CLIA# [id number] [address] [facility] [place] [address] * (ABNORMAL) CBC WITH DIFFERENTIAL (10/23/2023 4:07 AM CDT) WBC 26.2(H) 4.0 - 9.8 K/uL 10/23/2023 4:28 AM [facility] RBC 3.49(L) 3.90 - 4.90 M/uL 10/23/2023 4:28 AM [facility] HEMOGLOBIN 10.7(L) 11.8 - 14.8 g/dL 10/23/2023 4:28 AM [facility] [employer] [facility] HEMATOCRIT 31.7(L) 35.5 - 44.0 % 10/23/2023 4:28 AM [facility] [employer] [facility] MCV 90.8 82.0 - 99.0 fL 10/23/2023 4:28 AM [facility] [employer] [facility] MCH 30.7 27.2 - 32.6 pg 10/23/2023 4:28 AM [facility] MCHC 33.8 31.5 - 35.5 g/dL 10/23/2023 4:28 AM CDT [facility] LABORATORY SERVICES - [facility] RDW 14.0 11.5 - 14.5 % 10/23/2023 4:28 AM CDT [facility] SERVICES - [facility] RDW-STDEV 46.8 37.1 - 48.7 fL 10/23/2023 4:28 AM CDT [facility]ATORY SERVICES - [facility] PLATELETS 183 140 - 350 K/uL 10/23/2023 4:28 AM CDT [facility]ATORY SERVICES - [facility] MPV 11.8 9.3 - 12.4 fL 10/23/2023 4:28 AM CDT [facility]ATORY SERVICES - [facility] Blood Venipuncture / Unknown 10/23/2023 4:07 AM CDT 10/23/2023 4:10 AM CDT Tana Thorne PA-C HEMATOLOGY [facility]# [id number] [address] [place] [address] * (ABNORMAL) POC GLUCOSE (10/23/2023 2:55 AM CDT) [facility] GLUCOSE POC 152(H) 74 - 99 mg/dL 10/23/2023 2:55 AM CDT [facility] LABORATORY [facility] SPECIMEN SOURCE, GLUCOSE POC Whole Blood 10/23/2023 2:55 AM CDT [facility] Blood, whole 10/23/2023 2:55 AM CDT 10/23/2023 9:04 AM CDT Edinson Ferrell MD POINT OF CARE TESTIN G [facility] CLIA# [id number] [address] [place] [address] * (ABNORMAL) POC GLUCOSE (10/23/2023 2:00 AM CDT) GLUCOSE POC 166(H) 74 - 99 mg/dL 10/23/2023 2:00 AM T [facility] LABORATORY SERVICES - [facility] SPECIMEN SOURCE, GLUCOSE POC Whole Blood 10/23/2023 2:00 AM T [facility]ORATORY SERVICES - [facility] Blood, whole 10/23/2023 2:00 AM CDT 10/23/2023 9:03 AM CDT Edinson Ferrell MD POINT OF CARE TESTIN G [facility] [id number] [address] [facility] [place] [address] * (ABNORMAL) BLOOD GAS ARTERIAL (10/23/2023 1:55 AM CDT) [facility] PH BLOOD POC 7.37 7.35 - 7.45 10/23/2023 1:55 AM [facility] LABORATORY SERVICES [facility] PCO2 POC 34(L) 35 - 48 mm Hg 10/23/2023 1:55 AM [facility] PO2 POC 133(H) 83 - 108 mm Hg 10/23/2023 1:55 AM [facility] HCO3 (CALC) POC 20(L) 22 - 26 mmol/L 10/23/2023 1:55 AM [facility] HEMOGLOBIN POC 10.6(L) 11.8 - 14.8 g/dL 10/23/2023 1:55 AM T [facility] LABORATORY SERVICES [facility] BASE EXCESS POC -5(L) -2 - 3 mmol/L 10/23/2023 1:55 AM T [facility] LABORATORY SERVICES [facility] O2 SATURATION POC 99(H) 94 - 98 % 10/23/2023 1:55 AM [facility] HEMATOCRIT POC 32(L) 35 - 44 % 10/23/2023 1:55 AM [facility] LABORATORY SERVICES [facility] Comment:Estimated Value PH TEMP CORRECT 7.37 7.35 - 7.45 10/23/2023 1:55 AM CDT [employer] LABORATORY SERVICES - [facility] PCO2 TEMP CORRECT 34(L) 35 - 48 mm Hg 10/23/2023 1:55 AM CDT [facility] LABORATORY SERVICES - [facility] PO2 TEMP CORRECT 133(H) 83 - 108 mm Hg 10/23/2023 1:55 AM CDT [facility] LABORATORY SERVICES - [facility] SPECIMEN SOURCE, GASES POC Arterial 10/23/2023 1:55 AM T [facility] LABORATORY SERVICES - [facility] COMMENT, GASES POC Responsible Clinical Caregiver notified 10/23/2023 1:55 AM T [facility] LABORATORY SERVICES [facility] TCO2 (CALC) POC 21 19 - 24 mmol/L 10/23/2023 1:55 AM T [facility] LABORATORY SERVICES - [facility] FIO2 30.0 21.0 - 100.0 % 10/23/2023 1:55 AM T [facility] LABORATORY SERVICES [facility] P/F RATIO POC 443 10/23/2023 1:55 AM CDT [facility]ATORY SERVICES - [facility] PEEP POC 5 10/23/2023 1:55 AM CDT [facility]ATORY SERVICES - [facility] PS POC 5 10/23/2023 1:55 AM [facility] LABORATORY SERVICES - [facility] PATIENT'S TEMPERATURE POC 37.0 degrees 10/23/2023 1:55 AM T [facility] LABORATORY SERVICES [facility] PAO2 POC 171 10/23/2023 1:55 AM T [facility] LABORATORY SERVICES [facility] ARTERIAL/ALVEO LAR O2 RATIO 0.7800 10/23/2023 1:55 AM T [facility] LABORATORY SERVICES [facility] Blood, arterial 10/23/2023 1 :55 AM CDT 10/23/2023 1:56 AM CDT Olga STEPHENS ORDERABLES [facility] [employer] SERVICES [facility] BRANDIIA# [id number] [address] [facility] [address] [place] [address] * (ABNORMAL) POC GLUCOSE (10/23/2023 1:01 AM CDT) GLUCOSE POC 163(H) 74 - 99 mg/dL 10/23/2023 1:01 AM CDT [facility] LABORATORY SERVICES - [facility] SPECIMEN SOURCE, GLUCOSE POC Whole Blood 10/23/2023 1:01 AM CDT [facility] LABORATORY SERVICES - [facility] Blood, whole 10/23/2023 1:01 AM CDT 10/23/2023 9:03 AM CDT Edinson Ferrell MD POINT OF CARE TESTIN G Performing Organization Address [facility]/ZIP Co de Phone Number [facility] CLIA# [id number] [address] [place] [address] * (ABNORMAL) POC GLUCOSE (10/22/2023 11:57 PM CDT) GLUCOSE POC 154(H) 74 - 99 mg/dL 10/22/2023 11:57 PM CDT [facility]ORATORY [facility] SPECIMEN SOURCE, GLUCOSE POC Whole Blood 10/22/2023 11:57 PM CDT [facility] LABORATORY SERVICES [facility] Blood, whole 10/22/2023 11:5 7 PM CDT 10/23/2023 9:03 AM CDT Edinson Ferrell MD POINT OF CARE TESTIN G Performing Organization Address [facility]/ZIP Co de Phone Number [facility] CLIA# [id number] [address] [place] [address] * (ABNORMAL) POC GLUCOSE (10/22/2023 10:55 PM CDT) GLUCOSE POC 146(H) 74 - 99 mg/dL 10/22/2023 10:55 PM CDT [facility] LABORATORY SERVICES - [facility] SPECIMEN SOURCE, GLUCOSE POC Whole Blood 10/22/2023 10:55 PM CDT [facility]ATORY SERVICES - [facility] Blood, whole 10/22/2023 10:5 5 PM CDT 10/23/2023 9:03 AM CDT Edinson Ferrell MD POINT OF CARE TESTIN G [facility] CLIA# [id number] [address] [place] [address] * (ABNORMAL) POC GLUCOSE (10/22/2023 9:58 PM CDT) GLUCOSE POC 150(H) 74 - 99 mg/dL 10/22/2023 9:58 PM CDT [facility] LABORATORY SERVICES [facility] SPECIMEN SOURCE, GLUCOSE POC Whole Blood 10/22/2023 9:58 PM CDT [facility] LABORATORY SERVICES [facility] Blood, whole 10/22/2023 9:58 PM CDT 10/23/2023 9:03 AM CDT Edinson Ferrell MD POINT OF CARE TESTIN G Performing Organization Address [facility]/ZIP Co de Phone Number [facility] CLIA# [id number] [address] [place] [address] * (ABNORMAL) POC GLUCOSE (10/22/2023 8:53 PM CDT) GLUCOSE POC 141(H) 74 - 99 mg/dL 10/22/2023 8:53 PM CDT [facility] SPECIMEN SOURCE, GLUCOSE POC Whole Blood 10/22/2023 8:53 PM CDT [facility] Blood, whole 10/22/2023 8:53 PM CDT 10/23/2023 9:03 AM CDT Edinson Ferrell MD POINT OF CARE TESTIN G [facility] CLIA# [id number] [address] [place] [address] * (ABNORMAL) POC GLUCOSE (10/22/2023 7:58 PM CDT) GLUCOSE POC 131(H) 74 - 99 mg/dL 10/22/2023 7:58 PM CDT [facility] LABORATORY [facility] SPECIMEN SOURCE, GLUCOSE POC Whole Blood 10/22/2023 7:58 PM CDT [facility]ORATORY [facility] Blood, whole 10/22/2023 7:58 PM CDT 10/23/2023 9:03 AM CDT Edinson Ferrell MD POINT OF CARE TESTIN G [facility] CLIA# [id number] [address] [facility] [place] [address] [place] [address] * XR CHEST PA OR AP 1 [...] or infiltrate. DICTATION LOCATION: Location 4 Tana Thorne PA-C DIAGNOSTIC IMAG ING ORDERABLES * (ABNORMAL) POC GLUCOSE (10/22/2023 7:06 PM CDT) GLUCOSE POC 152(H) 74 - 99 mg/dL 10/22/2023 7:06 PM CDT [facility] SPECIMEN SOURCE, GLUCOSE POC Whole Blood 10/22/2023 7:06 PM CDT [facility] Blood, whole 10/22/2023 7:06 PM CDT 10/23/2023 9:03 AM CDT Edinson Ferrell MD POINT OF CARE TESTIN G [facility] [employer] [facility]# [id number] [address] [place] [address] * (ABNORMAL) POC GLUCOSE (10/22/2023 6:18 PM CDT) GLUCOSE POC 168(H) 74 - 99 mg/dL 10/22/2023 6:18 PM CDT [facility] SPECIMEN SOURCE, GLUCOSE POC Whole Blood 10/22/2023 6:18 PM CDT [facility] Blood, whole 10/22/2023 6:18 PM CDT 10/23/2023 9:03 AM CDT Edinson Ferrell MD POINT OF CARE TESTIN G [facility] LABORATORY SERVICES [facility]# [id number] [address] [place] [address] * (ABNORMAL) BLOOD GAS ARTERIAL (10/22/2023 6:17 PM CDT) PH BLOOD POC 7.45 7.35 - 7.45 10/22/2023 6:17 PM CDT [facility] PCO2 POC 31(L) 35 - 48 mm Hg 10/22/2023 6:17 PM T [facility] LABORATORY SERVICES [facility] PO2 POC 285(H) 83 - 108 mm Hg 10/22/2023 6:17 PM T [facility] LABORATORY SERVICES [facility] HCO3 (CALC) POC 22 22 - 26 mmol/L 10/22/2023 6:17 PM T [facility] LABORATORY SERVICES [facility] HEMOGLOBIN POC 10.5(L) 11.8 - 14.8 g/dL 10/22/2023 6:17 PM T [facility] LABORATORY SERVICES [facility] BASE EXCESS POC -2 -2 - 3 mmol/L 10/22/2023 6:17 PM T [facility] LABORATORY SERVICES [facility] O2 SATURATION POC 99(H) 94 - 98 % 10/22/2023 6:17 PM T [facility] LABORATORY SERVICES [facility] POTASSIUM POC 4.0 3.5 - 4.9 mmol/L 10/22/2023 6:17 PM T [facility] LABORATORY SERVICES [facility] HEMATOCRIT POC 32(L) 35 - 44 % 10/22/2023 6:17 PM T [facility] LABORATORY SERVICES - . [facility] Comment:Estimated Value PH TEMP CORRECT 7.45 7.35 - 7.45 10/22/2023 6:17 PM T [facility] LABORATORY SERVICES [facility] PCO2 TEMP CORRECT 31(L) 35 - 48 mm Hg 10/22/2023 6:17 PM T [facility] LABORATORY SERVICES [facility] PO2 TEMP CORRECT 285(H) 83 - 108 mm Hg 10/22/2023 6:17 PM CDT [employer] [facility] LABORATORY SERVICES - [facility] SPECIMEN SOURCE, GASES POC Arterial 10/22/2023 6:17 PM CDT [employer] LABORATORY SERVICES - [facility] COMMENT, GASES POC Responsible Clinical Caregiver notified 10/22/2023 6:17 PM CDT [employer] [facility] LABORATORY SERVICES - [facility] TCO2 (CALC) POC 23 19 - 24 mmol/L 10/22/2023 6:17 PM CDT [employer] LABORATORY SERVICES - [facility] FIO2 60.0 21.0 - 100.0 % 10/22/2023 6:17 PM CDT [employer] [facility] LABORATORY SERVICES - [facility] P/F RATIO POC 475 10/22/2023 6:17 PM CDT [employer] [facility] LABORATORY SERVICES - [facility] PEEP POC 5 10/22/2023 6:17 PM CDT [employer] [facility] LABORATORY SERVICES - [facility] SET RATE POC 14 10/22/2023 6:17 PM CDT [facility] [facility] LABORATORY SERVICES - [facility] TIDAL VOLUME POC 500.00 10/22/2023 6:17 PM CDT [employer] [facility] LABORATORY SERVICES - [facility] PATIENT'S TEMPERATURE POC 37.0 degrees 10/22/2023 6:17 PM CDT [employer] [facility]AT[facility] PAO2 POC 389 10/22/2023 6:17 PM CDT [employer] [facility] LABORATORY SERVICES - [facility] ARTERIAL/ALVEO LAR O2 RATIO 0.7300 10/22/2023 6:17 PM T [employer] [facility] LABORATORY SERVICES - [facility] Blood, arterial 10/22/2023 6 :17 PM CDT 10/22/2023 6:19 PM CDT Tana Thorne PA-C ABG ORDERABLES [facility] LABORATORY SERVICES [facility] CLIA# [id number] [address] [place] [id number] * (ABNORMAL) COMPREHENSIVE METABOLIC PANEL (10/22/2023 6:14 PM CDT) SODIUM 136 136 - 145 mmol/L 10/22/2023 7:13 PM [facility]T [employer] LABORATORY SERVICES [facility] POTASSIUM 4.0 3.5 - 5.0 mmol/L 10/22/2023 7:13 PM [facility] [employer] LABORATORY SERVICES [facility] CHLORIDE 103 98 - 107 mmol/L 10/22/2023 7:13 PM [facility] CO2 20(L) 22 - 29 mmol/L 10/22/2023 7:13 PM [facility] LABORATORY [facility] CALCIUM 9.9 8.6 - 10.2 mg/dL 10/22/2023 7:13 PM [facility] LABORATORY SERVICES - [facility] BUN 17 8 - 23 mg/dL 10/22/2023 7:13 PM [facility] LABORATORY SERVICES - [facility] CREATININE 1.01(H) 0.51 - 0.95 mg/dL 10/22/2023 7:13 PM [facility] LABORATORY SERVICES [facility] Comment:The GFR result is no t clinically significant on patients <18 or >70 years of age. GLUCOSE 162(H) 74 - 99 mg/dL 10/22/2023 7:13 PM [facility] LABORATORY SERVICES [facility] TOTAL PROTEIN 6.6(L) 6.7 - 8.6 g/dL 10/22/2023 7:13 PM [facility] ALBUMIN 3.8 3.5 - 5.2 g/dL 10/22/2023 7:13 PM [facility] LABORATORY [facility] [facility] BILIRUBIN TOTAL 0.4 0.2 - 1.1 mg/dL 10/22/2023 7:13 PM [facility] LABORATORY [facility] ALKALINE PHOSPHATASE 70 35 - 104 U/L 10/22/2023 7:13 PM [facility] AST 21 <33 U/L 10/22/2023 7:13 PM [facility] [employer] LABORATORY [facility] ALT 10 <34 U/L 10/22/2023 7:13 PM [facility] [employer] LABORATORY SERVICES [facility] GFR 57 mL/min/1.7 3 sq meter 10/22/2023 7:13 PM [facility] [employer] LABORATORY SERVICES [facility] Comment:eGFR calculated with 2020 CKD-EPI equation. Vegetarian diet, extremely high or low muscle mass, and may affect results. Cystatin C with Glomerular Filtration Rate is a suitable alternative for these patients. ANION GAP 13 8 - 16 mmol/L 10/22/2023 7:13 PM CDT [facility] Blood Arterial / Unknown 4 6:14 PM CDT 10/22/2023 6:25 PM CDT [facility] LAB[facility]ATORY [facility] - 10/22/2023 7:13 PM CDT Samples containing indocyanine green cause interferences on Total and/or Direct Bilirubin and must not be measured. Tana Thorne PA-C CHEMISTRY ORDER [place] [facility] CLIA# [id number] [address] [facility] [place] [address] [place] [address] * (ABNORMAL) PROTIME-INR (10/22/2023 6:14 PM CDT) PROTIME 16.5(H) 12.7 - 15.1 Seconds 10/22/2023 7:04 PM CDT [facility] INR 1.3(H) 0.9 - 1.1 10/22/2023 7:04 PM CDT [facility] Blood Arterial / Unknown 4 6:14 PM CDT 10/22/2023 6:25 PM CDT [facility] LAB[facility]ATORY [facility] - 10/22/2023 7:04 PM CDT INR Therapeutic Range: Adult: ?? 2.0 - 3.0 for pulmonary embolism or prophylaxis against venous ?thrombosis or systemic embolization. 2.0 - 3.0 for patients with tissue heart valves. 2.5 - 3.5 for patients with mechanical heart valves or post DE. Pediatric ??(12 years and under): 1.5 - 3.0 Although the target range in children is not well established, ?INR values of 1.5 - 3.0 are recommended for most patients. ?Higher values have been used in children with prosthetic ?cardiac valves and hereditary clotting disorders. [place] (<3 days) therapeutic ranges have not been established. Tana Thorne PA-C HEMATOLOGY JAMES DIANA Performing Organization Address [facility] Co de Phone Number [facility]# [id number] [address] [place] [phone] * (ABNORMAL) PTT (10/22/2023 6:14 PM CDT) Pathologist [facility] [place] PTT 38.5(H) 24.4 - 36.4 seconds 10/22/2023 7:04 PM CDT [facility] Comment: PTT Therapeutic Range: Heparin Level ? PTT (seconds) <0.10 units/mL ? <53 0.10 - 0.30 units/mL ? 53 - 67 0.30 - 0.70 units/mL* ?67 - 95* 0.70 - 1.00 units/mL ? 95 - 116 *corresponds to therapeutic range for unfractionated heparin Blood Arterial / Unknown 6:14 PM CDT 10/22/2023 6:25 PM CDT Tana DIANA Performing Organization Address [facility]/ZIP Co de Phone Number [facility]# [id number] [address] [place] [address] * (ABNORMAL) CBC WITH DIFFERENTIAL (10/22/2023 6:14 PM CDT) Pathologist [facility] [place] WBC 17.3(H) 4.0 - 9.8 K/uL 10/22/2023 6:50 PM CDT [facility] LABORATORY SERVICES - [facility] RBC 3.41(L) 3.90 - 4.90 M/uL 10/22/2023 6:50 PM CDT [facility] LABORATORY SERVICES - [facility] HEMOGLOBIN 10.1(L) 11.8 - 14.8 g/dL 10/22/2023 6:50 PM CDT [facility] LABORATORY SERVICES - [facility] HEMATOCRIT 31.0(L) 35.5 - 44.0 % 10/22/2023 6:50 PM CDT [facility] LABORATORY SERVICES - [facility] MCV 90.9 82.0 - 99.0 fL 10/22/2023 6:50 PM CDT [facility]ORATORY SERVICES - [facility] MCH 29.6 27.2 - 32.6 pg 10/22/2023 6:50 PM CDT [facility] LABORATORY SERVICES - [facility] MCHC 32.6 31.5 - 35.5 g/dL 10/22/2023 6:50 PM CDT [facility]ORATORY SERVICES - [facility] RDW 13.9 11.5 - 14.5 % 10/22/2023 6:50 PM CDT [facility]ORATORY SERVICES - [facility] RDW-STDEV 45.7 37.1 - 48.7 fL 10/22/2023 6:50 PM CDT [facility] LABORATORY SERVICES - [facility] PLATELETS 160 140 - 350 K/uL 10/22/2023 6:50 PM CDT [facility] LABORATORY SERVICES - [facility] MPV 11.8 9.3 - 12.4 fL 10/22/2023 6:50 PM CDT [facility] LABORATORY SERVICES - [facility] NEUTROPHILS 78 % 10/22/2023 6:50 PM CDT [facility] LYMPHOCYTES 5 % 10/22/2023 6:50 PM CDT [facility] LABORATORY SERVICES - . [facility] MONOCYTES 12 % 10/22/2023 6:50 PM CDT [facility] LABORATORY SERVICES - . [place] EOSINOPHILS 1 % 10/22/2023 6:50 PM CDT [facility] - [facility] BASOPHILS 0 % 10/22/2023 6:50 PM CDT [facility] - [facility] IMMATURE GRANULOCYTES 5 % 10/22/2023 6:50 PM CDT [facility] LABORATORY SERVICES - [facility] Comment:IG (Immature Granulo cyte) count includes Metamyelocytes, Myelocytes, and Promyelocytes NEUTROPHIL ABSOLUTE 13.42(H) 1.90 - 7.00 K/uL 10/22/2023 6:50 PM CDT [facility] LABORATORY SERVICES - [facility] LYMPHOCYTE ABSOLUTE 0.83 0.70 - 4.50 K/uL 10/22/2023 6:50 PM CDT [facility] LABORATORY SERVICES - [facility] MONOCYTE ABSOLUTE 2.04(H) 0.10 - 1.30 K/uL 10/22/2023 6:50 PM CDT [facility] LABORATORY SERVICES - [facility] EOSINOPHIL ABSOLUTE 0.11 0.00 - 0.70 K/uL 10/22/2023 6:50 PM CDT [facility] LABORATORY SERVICES - [facility] BASOPHILS ABSOLUTE 0.04 0.00 - 0.20 K/uL 10/22/2023 6:50 PM CDT [facility] LABORATORY SERVICES - [facility] IMMATURE GRANULOCYTES ABSOLUTE 0.83(H) 0.00 - 0.03 K/uL 10/22/2023 6:50 PM CDT [facility] LABORATORY SERVICES - [facility] Blood Arterial / Unknown 6:14 PM CDT 10/22/2023 6:25 PM CDT Tana Thorne PA-C HEMATOLOGY ORDE ADALGISA [facility] CLIA# [id number] [address] [place] [id number] * MAGNESIUM LEVEL (10/22/2023 6:14 PM CDT) MAGNESIUM 1.9 1.6 - 2.4 mg/dL 10/22/2023 7:13 PM CDT [facility] LABORATORY [facility] Blood Arterial / Unknown 4 6:14 PM CDT 10/22/2023 6:25 PM CDT Tana Thorne PA-C CHEMISTRY ORDER [place] [facility] LABORATORY [facility]# [id number] [address] [place] [address] * POC LACTIC ACID (10/22/2023 5:10 PM CDT) Pathologist [facility] LACTIC ACID POC 1.2 <=2.0 mmol/L 10/22/2023 5:10 PM CDT [facility] LABORATORY SERVICES - [facility] SPECIMEN SOURCE, GASES POC Arterial 10/22/2023 5:10 PM CDT [employer] LABORATORY SERVICES - [facility] COMMENT, GASES POC Responsible Clinical Caregiver notified 10/22/2023 5:10 PM CDT [facility] LABORATORY SERVICES [facility] Blood 10/22/2023 5:10 PM CDT 10/22/2023 5:12 PM CDT Olga Sandhu DO POINT OF CARE TESTIN G [facility] [employer] [facility]# [id number] [address] [place] [address] * (ABNORMAL) BLOOD GAS,(INCL. H+H, LYTES, GLUC) (10/22/2023 5:10 PM CDT) Pathologist [facility] PH BLOOD POC 7.43 7.35 - 7.45 10/22/2023 5:10 PM CDT [facility] LABORATORY SERVICES [facility] PCO2 POC 33(L) 35 - 48 mm Hg 10/22/2023 5:10 PM CDT [facility] LABORATORY SERVICES [facility] PO2 POC 531(H) 83 - 108 mm Hg 10/22/2023 5:10 PM CDT [facility] LABORATORY SERVICES [facility] TCO2 (CALC) POC 23 19 - 24 mmol/L 10/22/2023 5:10 PM CDT [employer] LABORATORY SERVICES [facility] HCO3 (CALC) POC 22 22 - 26 mmol/L 10/22/2023 5:10 PM CDT [employer] LABORATORY SERVICES [facility] O2 SATURATION POC 99(H) 94 - 98 % 10/22/2023 5:10 PM CDT [employer] LABORATORY SERVICES [facility] BASE EXCESS POC -2 -2 - 3 mmol/L 10/22/2023 5:10 PM T [facility] LABORATORY SERVICES [facility] HEMOGLOBIN POC 8.1(L) 11.8 - 14.8 g/dL 10/22/2023 5:10 PM T [facility] LABORATORY SERVICES [facility] HEMATOCRIT POC 24(L) 35 - 44 % 10/22/2023 5:10 PM [facility] LABORATORY SERVICES [facility] Comment:Estimated Value GLUCOSE POC 164(H) 74 - 99 mg/dL 10/22/2023 5:10 PM T [facility] LABORATORY SERVICES [facility] SODIUM POC 134(L) 135 - 145 mmol/L 10/22/2023 5:10 PM T [facility] LABORATORY [facility] POTASSIUM POC 4.3 3.5 - 4.9 mmol/L 10/22/2023 5:10 PM [facility] LABORATORY [facility] CALCIUM IONIZED POC 5.7(H) 4.7 - 5.1 mg/dL 10/22/2023 5:10 PM [facility] LABORATORY [facility] PH TEMP CORRECT 7.43 7.35 - 7.45 10/22/2023 5:10 PM T [facility] LABORATORY [facility] PCO2 TEMP CORRECT 33(L) 35 - 48 mm Hg 10/22/2023 5:10 PM T [facility] LABORATORY [facility] PO2 TEMP CORRECT 531(H) 83 - 108 mm Hg 10/22/2023 5:10 PM [facility] LABORATORY [facility] SPECIMEN SOURCE, GASES POC Arterial 10/22/2023 5:10 PM [facility] LABORAT[facility] PATIENT'S TEMPERATURE POC 37.0 degrees 10/22/2023 5:10 PM T [facility] LABORATORY [facility] COMMENT, GASES POC Responsible Clinical Caregiver notified 10/22/2023 5:10 PM [facility] LAB[facility] Blood, arterial 10/22/2023 5 :10 PM CDT 10/22/2023 5:12 PM CDT Olga STEPHENS ORDERABLES [facility] CLIA# [id number] [address] [place] [address] * POC LACTIC ACID (10/22/2023 4:29 PM CDT) [facility] LACTIC ACID POC 1.4 <=2.0 mmol/L 10/22/2023 4:29 PM CDT [facility] LABORATORY SERVICES - [facility] SPECIMEN SOURCE, GASES POC Arterial 10/22/2023 4:29 PM CDT [facility] LABORATORY SERVICES - [facility] COMMENT, GASES POC Responsible Clinical Caregiver notified 10/22/2023 4:29 PM CDT [facility] LABORATORY SERVICES [facility] Blood 10/22/2023 4:29 PM CDT 10/22/2023 4:30 PM CDT Olga Sandhu DO POINT OF CARE TESTIN G [facility] [employer] [facility]# [id number] [address] [place] [address] * (ABNORMAL) BLOOD GAS,(INCL. H+H, LYTES, GLUC) (10/22/2023 4:29 PM CDT) [facility] PH BLOOD POC 7.42 7.35 - 7.45 10/22/2023 4:29 PM CDT [facility] LABORATORY SERVICES [facility] PCO2 POC 34(L) 35 - 48 mm Hg 10/22/2023 4:29 PM CDT [facility] LABORATORY SERVICES [facility] PO2 POC 538(H) 83 - 108 mm Hg 10/22/2023 4:29 PM CDT [facility] LABORATORY SERVICES [facility] TCO2 (CALC) POC 23 19 - 24 mmol/L 10/22/2023 4:29 PM CDT [facility] LABORATORY SERVICES [facility] HCO3 (CALC) POC 22 22 - 26 mmol/L 10/22/2023 4:29 PM CDT [employer] LABORATORY SERVICES [facility] O2 SATURATION POC 99(H) 94 - 98 % 10/22/2023 4:29 PM CDT [employer] LABORATORY SERVICES [facility] BASE EXCESS POC -2 -2 - 3 mmol/L 10/22/2023 4:29 PM [facility] LABORATORY [facility] HEMOGLOBIN POC 8.2(L) 11.8 - 14.8 g/dL 10/22/2023 4:29 PM [facility] LABORATORY [facility] HEMATOCRIT POC 25(L) 35 - 44 % 10/22/2023 4:29 PM [facility] LABORATORY [facility] Comment:Estimated Value GLUCOSE POC 134(H) 74 - 99 mg/dL 10/22/2023 4:29 PM [facility] LABORAT[facility] SODIUM POC 135 135 - 145 mmol/L 10/22/2023 4:29 PM [facility] LABORAT[facility] POTASSIUM POC 4.2 3.5 - 4.9 mmol/L 10/22/2023 4:29 PM [facility] CALCIUM IONIZED POC 5.9(H) 4.7 - 5.1 mg/dL 10/22/2023 4:29 PM [facility] PH TEMP CORRECT 7.42 7.35 - 7.45 10/22/2023 4:29 PM [facility] LABORAT[facility] PCO2 TEMP CORRECT 34(L) 35 - 48 mm Hg 10/22/2023 4:29 PM [facility] LABORAT[facility] PO2 TEMP CORRECT 538(H) 83 - 108 mm Hg 10/22/2023 4:29 PM [facility] LABORAT[facility] SPECIMEN SOURCE, GASES POC Arterial 10/22/2023 4:29 PM [facility] LABORAT[facility] PATIENT'S TEMPERATURE POC 37.0 degrees 10/22/2023 4:29 PM [facility] LAB[facility]AT[facility] COMMENT, GASES POC Responsible Clinical Caregiver notified 10/22/2023 4:29 PM [facility] Blood, arterial 10/22/2023 4 :29 PM CDT 10/22/2023 4:30 PM CDT Olga STEPHENS ORDERABLES [facility] CLIA# [id number] [address] [place] [address] * TRANSFUSE RED BLOOD CELLS (10/22/2023 3:38 PM CDT) Shin Rosenbaum DO BLOOD TRANSF USION ORDERABLES * POC LACTIC ACID (10/22/2023 3:35 PM CDT) LACTIC ACID POC 1.1 <=2.0 mmol/L 10/22/2023 3:35 PM CDT [facility] LABORATORY SERVICES - [facility] SPECIMEN SOURCE, GASES POC Arterial 10/22/2023 3:35 PM CDT [employer] LABORATORY SERVICES - [facility] COMMENT, GASES POC Responsible Clinical Caregiver notified 10/22/2023 3:35 PM CDT [facility] LABORATORY SERVICES - [facility] Blood 10/22/2023 3:35 PM CDT 10/22/2023 3:37 PM CDT Olga Sandhu DO POINT OF CARE TESTIN G [facility] [employer] [facility] [id number] [address] [place] [address] * (ABNORMAL) BLOOD GAS,(INCL. H+H, LYTES, GLUC) (10/22/2023 3:35 PM CDT) PH BLOOD POC 7.41 7.35 - 7.45 10/22/2023 3:35 PM CDT [facility] LABORATORY SERVICES - [facility] PCO2 POC 37 35 - 48 mm Hg 10/22/2023 3:35 PM CDT [employer] LABORATORY SERVICES - [facility] PO2 POC 566(H) 83 - 108 mm Hg 10/22/2023 3:35 PM CDT [facility] LABORATORY SERVICES [facility] TCO2 (CALC) POC 25(H) 19 - 24 mmol/L 10/22/2023 3:35 PM CDT [facility] LABORATORY SERVICES [facility] HCO3 (CALC) POC 24 22 - 26 mmol/L 10/22/2023 3:35 PM CDT [employer] LABORATORY SERVICES [facility] O2 SATURATION POC 99(H) 94 - 98 % 10/22/2023 3:35 PM T [facility] LABORATORY SERVICES [facility] BASE EXCESS POC -1 -2 - 3 mmol/L 10/22/2023 3:35 PM [facility] LABORATORY SERVICES [facility] HEMOGLOBIN POC 7.4(L) 11.8 - 14.8 g/dL 10/22/2023 3:35 PM [facility] LABORATORY SERVICES [facility] HEMATOCRIT POC 22(L) 35 - 44 % 10/22/2023 3:35 PM [facility] LABORATORY SERVICES [facility] Comment:Estimated Value GLUCOSE POC 101(H) 74 - 99 mg/dL 10/22/2023 3:35 PM [facility] LABORATORY SERVICES [facility] SODIUM POC 134(L) 135 - 145 mmol/L 10/22/2023 3:35 PM [facility] LABORATORY SERVICES [facility] POTASSIUM POC 3.9 3.5 - 4.9 mmol/L 10/22/2023 3:35 PM [facility] LABORATORY SERVICES [facility] CALCIUM IONIZED POC 4.4(L) 4.7 - 5.1 mg/dL 10/22/2023 3:35 PM [facility] LABORATORY SERVICES [facility] PH TEMP CORRECT 7.41 7.35 - 7.45 10/22/2023 3:35 PM [facility] LABORATORY SERVICES [facility] PCO2 TEMP CORRECT 37 35 - 48 mm Hg 10/22/2023 3:35 PM [facility] LABORATORY SERVICES [facility] PO2 TEMP CORRECT 566(H) 83 - 108 mm Hg 10/22/2023 3:35 PM [facility] LABORATORY SERVICES [facility] SPECIMEN SOURCE, GASES POC Arterial 10/22/2023 3:35 PM [facility] LABORATORY SERVICES [facility] PATIENT'S TEMPERATURE POC 37.0 degrees 10/22/2023 3:35 PM [facility] LABORATORY SERVICES [facility] COMMENT, GASES POC Responsible Clinical Caregiver notified 10/22/2023 3:35 PM [facility] LABORATORY SERVICES [facility] Blood, arterial 10/22/2023 3 :35 PM CDT 10/22/2023 3:37 PM CDT Olga Sandhu DO ABG ORDERABLES Performing Organization Address [facility]/ZIP Co de Phone Number [facility] [employer] [facility] CLIA# [id number] [address] [place] [address] * POC LACTIC ACID (10/22/2023 2:43 PM CDT) LACTIC ACID POC 1.3 <=2.0 mmol/L 10/22/2023 2:43 PM CDT [facility] LABORATORY SERVICES [facility] SPECIMEN SOURCE, GASES POC Arterial 10/22/2023 2:43 PM CDT [facility] LABORATORY SERVICES [facility] COMMENT, GASES POC Responsible Clinical Caregiver notified 10/22/2023 2:43 PM CDT [facility] LABORATORY [facility] Blood 10/22/2023 2:43 PM CDT 10/22/2023 2:44 PM CDT Olga Sandhu DO POINT OF CARE TESTIN G Performing Organization Address [facility]/ZIP Co de Phone Number [facility] [employer] [facility] CLBLAYNE# [id number] [address] [place] [address] * (ABNORMAL) BLOOD GAS,(INCL. H+H, LYTES, GLUC) (10/22/2023 2:43 PM CDT) PH BLOOD POC 7.48(H) 7.35 - 7.45 10/22/2023 2:43 PM CDT [facility] LABORATORY SERVICES [facility] PCO2 POC 34(L) 35 - 48 mm Hg 10/22/2023 2:43 PM CDT [facility] PO2 POC 527(H) 83 - 108 mm Hg 10/22/2023 2:43 PM CDT [facility] LABORATORY [facility] TCO2 (CALC) POC 26(H) 19 - 24 mmol/L 10/22/2023 2:43 PM CDT [facility] LABORATORY [facility] HCO3 (CALC) POC 25 22 - 26 mmol/L 10/22/2023 2:43 PM CDT [facility] SERVICES [facility] O2 SATURATION POC 99(H) 94 - 98 % 10/22/2023 2:43 PM [facility] LABORATORY SERVICES [facility] BASE EXCESS POC 2 -2 - 3 mmol/L 10/22/2023 2:43 PM [facility] LABORATORY [facility] HEMOGLOBIN POC 9.2(L) 11.8 - 14.8 g/dL 10/22/2023 2:43 PM [facility] LABORATORY SERVICES [facility] HEMATOCRIT POC 28(L) 35 - 44 % 10/22/2023 2:43 PM [facility] LABORATORY SERVICES [facility] Comment:Estimated Value GLUCOSE POC 102(H) 74 - 99 mg/dL 10/22/2023 2:43 PM [facility] LABORATORY [facility] SODIUM POC 136 135 - 145 mmol/L 10/22/2023 2:43 PM [facility] LABORATORY [facility] POTASSIUM POC 4.5 3.5 - 4.9 mmol/L 10/22/2023 2:43 PM [facility] LABORATORY [facility] CALCIUM IONIZED POC 5.0 4.7 - 5.1 mg/dL 10/22/2023 2:43 PM [facility] LABORATORY [facility] PH TEMP CORRECT 7.48(H) 7.35 - 7.45 10/22/2023 2:43 PM [facility] LABORAT[facility] PCO2 TEMP CORRECT 34(L) 35 - 48 mm Hg 10/22/2023 2:43 PM [facility] PO2 TEMP CORRECT 527(H) 83 - 108 mm Hg 10/22/2023 2:43 PM [facility] LABORATORY [facility] SPECIMEN SOURCE, GASES POC Arterial 10/22/2023 2:43 PM [facility] LABORAT[facility] PATIENT'S TEMPERATURE POC 37.0 degrees 10/22/2023 2:43 PM [facility] LABORAT[facility] COMMENT, GASES POC Responsible Clinical Caregiver notified 10/22/2023 2:43 PM [facility] Blood, arterial 10/22/2023 2 :43 PM CDT 10/22/2023 2:44 PM CDT Olga Sandhu DO ABG ORDERABLES [facility]# [id number] [address] [place] [address] [address] * (ABNORMAL) POC TEG STANDARD A (10/22/2023 1:40 PM CDT) [facility] CITRATED [place] REACTION TIME (CK-R) POC 7.8 4.6 - 9.1 min 10/22/2023 1:40 PM CDT [facility] CITRATED [place] ANGLE (CK-A) POC 80.4(H) 63.0 - 78.0 deg 10/22/2023 1:40 PM CDT [facility] CITRATED [place] MAXIMUM AMPLITUDE(CK-MA ) POC 72(H) 52 - 69 mm 10/22/2023 1:40 PM CDT [facility] CITRATED RAPID MAXIMUM AMPLITUDE (BEHAVIORAL SCIENCES DEPARTMENT CHAIR-MA) POC 73(H) 52 - 70 mm 10/22/2023 1:40 PM CDT [facility] CITRATED [place] HEPARINASE REACTION TIME (CKH-RT) POC 6.8 4.3 - 8.3 min 10/22/2023 1:40 PM CDT [facility] CITRATE FUNCTIONAL FIBRINOGEN MAX AMPLITUDE, CFF-MA POC 47(H) 15 - 32 mm 10/22/2023 1:40 PM CDT [facility] CITRATED FUNCTIONAL FIBRINOGEN (CFF-FLEV) POC 849(H) 278 - 581 mg/dl 10/22/2023 1:40 PM CDT [facility] CITRATED [place] KINETICS (CK-K) POC 0.7(L) 0.8 - 2.1 min 10/22/2023 1:40 PM CDT [facility] 10/22/2023 1:40 PM CDT 10/22/2023 3:07 PM CDT Olga Sandhu DO POINT OF CARE TESTIN G [facility] - [facility] CLIA# [id number] [address] [place] [address] * US GUIDE NEEDLE PLACEMENT (10/22/2023 12:58 PM CDT) Narrative 10/22/2023 12:58 PM CDT Order information only. ??Exam was auto-finalized. ?? Edinson Ferrell MD ORDERABLES * PREPARE RED BLOOD CELLS (10/22/2023 8:41 AM CDT) COMPONENT TYPE [id number] [facility] COMPONENT IDENTIFICATION [id number] [facility] UN[facility] ABO O [facility] RH POS [facility] CROSSMATCH Compatible [facility] COMPONENT STATUS Transfused ME Y [facility] COMPONENT EXPIRATION DATE/TIME [id number] [facility] COMPONENT CODING SYSTEM [address] [facility] VOLUME, BLOOD PRODUCT 350 [facility] 10/22/2023 8:41 AM CDT Edinson Ferrell MD LAB TRANSFUSION ORDE ADALGISA [facility] CLIA# [id number] [address] [place] [address] * PREPARE RED BLOOD CELLS (10/22/2023 8:41 AM CDT) COMPONENT TYPE [id number] [facility] COMPONENT IDENTIFICATION [id number] [facility] UN[facility] ABO O [facility] RH POS [facility] CROSSMATCH Compatible [facility] COMPONENT STATUS Returned [facility] COMPONENT EXPIRATION DATE/TIME [id number] [facility] COMPONENT CODING SYSTEM [address] [facility] VOLUME, BLOOD PRODUCT 350 [facility] 10/22/2023 8:41 AM CDT Edinson Ferrell MD LAB TRANSFUSION JAMES DIANA [facility] CLIA# [id number] [address] [place] [address] * PREPARE RED BLOOD CELLS (10/22/2023 8:41 AM CDT) COMPONENT TYPE [id number] [facility] COMPONENT IDENTIFICATION [id number] [facility] UN[facility] ABO O [facility] RH POS [facility] CROSSMATCH Compatible [facility] [facility] COMPONENT STATUS Returned [facility] LABORATORY SERVICES [facility] COMPONENT EXPIRATION DATE/TIME [id number] [facility] COMPONENT CODING SYSTEM 5100 [facility] VOLUME, BLOOD PRODUCT 350 [facility] 10/22/2023 8:41 AM CDT Edinson Ferrell MD LAB TRANSFUSION JAMES DIANA [employer] LABORATORY SERVICES -- [facility] CLIA# [id number] [address] [facility] [place] [place] [address] * PREPARE RED BLOOD CELLS (10/22/2023 8:41 AM CDT) COMPONENT TYPE [id number] [facility] COMPONENT IDENTIFICATION [id number] [facility] UNIT ABO O [facility] UN[facility] RH POS [facility] CROSSMATCH Compatible [facility] COMPONENT STATUS Returned [facility] LAB[facility]ATORY SERVICES [facility] COMPONENT EXPIRATION DATE/TIME [facility] COMPONENT CODING SYSTEM 5100 [facility] VOLUME, BLOOD PRODUCT 350 [facility] 10/22/2023 8:41 AM CDT Edinson Ferrell MD LAB TRANSFUSION JAMES DIANA [facility] CLIA# [id number] [address] [facility] [place] [address] * PREPARE RED BLOOD CELLS (10/22/2023 8:41 AM CDT) COMPONENT TYPE [id number] [facility] COMPONENT IDENTIFICATION [id number] [facility] UNIT ABO O [facility] UN[facility] RH POS [facility] CROSSMATCH Compatible [facility] COMPONENT STATUS Returned [facility] LAB[facility] COMPONENT EXPIRATION DATE/TIME [facility] COMPONENT CODING SYSTEM 5100 [facility] VOLUME, BLOOD PRODUCT 350 [facility] 10/22/2023 8:41 AM CDT Edinson Ferrell MD LAB TRANSFUSION JAMES DIANA [facility] CLIA# [id number] [address] [facility] [place] [address] * PREPARE RED BLOOD CELLS (10/22/2023 8:41 AM CDT) COMPONENT TYPE [id number] [facility] COMPONENT IDENTIFICATION [id number] [facility] LABORATORY SERVICES [facility] [facility] ABO O [facility] LABORATORY SERVICES [facility] UN[facility] RH POS [facility] LABORATORY SERVICES -- [place] CROSSMATCH Compatible [facility] LABORATORY SERVICES -- [facility] COMPONENT STATUS Returned [facility] LABORATORY SERVICES -- [facility] COMPONENT EXPIRATION DATE/TIME [id number] [facility] LAB[facility]ATORY SERVICES -- [facility] COMPONENT CODING SYSTEM 5100 [facility] LABORATORY SERVICES -- [place] VOLUME, BLOOD PRODUCT 350 [facility] LAB[facility]ATORY SERVICES [facility] Other, specify 10/22/2023 8: 41 AM CDT Edinson Ferrell MD LAB TRANSFUSION ORDE RABMASON [facility] LABORATORY SERVICES -- [facility] CLIA# [id number] [address] [place] [address] * CVOR TRANSESOPHAGEAL STUDY (10/22/2023 8:40 AM CDT) Narrative 10/22/2023 8:40 AM CDT Order Auto Finalized. Please see associated Operative Report/Progress Note/Procedure Note from the same date. Edinson Ferrell MD ECHO ORDERABLES * (ABNORMAL) POC GLUCOSE (10/22/2023 6:24 AM CDT) GLUCOSE POC 103(H) 74 - 99 mg/dL 10/22/2023 6:24 AM CDT [facility] SPECIMEN SOURCE, GLUCOSE POC Whole Blood 10/22/2023 6:24 AM CDT [facility] LABORATORY SERVICES - [facility] Blood, whole 10/22/2023 6:24 AM CDT 10/22/2023 6:51 AM CDT Olga Sandhu DO POINT OF CARE TESTIN G [facility] LABORATORY SERVICES - [facility] CLIA# [id number] [address] [place] [address] * (ABNORMAL) CBC WITHOUT DIFFERENTIAL (10/22/2023 1:01 AM CDT) [facility] WBC 11.1(H) 4.0 - 9.8 K/uL 10/22/2023 2:39 AM CDT [employer] LABORATORY SERVICES - [facility] RBC 3.24(L) 3.90 - 4.90 M/uL 10/22/2023 2:39 AM CDT [employer] LABORATORY SERVICES - . [place] HEMOGLOBIN 9.7(L) 11.8 - 14.8 g/dL 10/22/2023 2:39 AM CDT [facility] LABORATORY SERVICES - [facility] HEMATOCRIT 29.8(L) 35.5 - 44.0 % 10/22/2023 2:39 AM CDT [facility] LABORATORY SERVICES - [facility] MCV 92.0 82.0 - 99.0 fL 10/22/2023 2:39 AM CDT [employer] LABORATORY SERVICES - [facility] MCH 29.9 27.2 - 32.6 pg 10/22/2023 2:39 AM CDT [employer] LABORATORY SERVICES - [facility] MCHC 32.6 31.5 - 35.5 g/dL 10/22/2023 2:39 AM CDT [employer] LABORATORY SERVICES - [facility] PLATELETS 238 140 - 350 K/uL 10/22/2023 2:39 AM CDT [facility] LABORATORY SERVICES - [facility] MPV 12.4 9.3 - 12.4 fL 10/22/2023 2:39 AM CDT [employer] SERVICES - [facility] RDW 13.7 11.5 - 14.5 % 10/22/2023 2:39 AM CDT [employer] LABORATORY SERVICES - [facility] RDW-STDEV 46.5 37.1 - 48.7 fL 10/22/2023 2:39 AM CDT [employer] LABORATORY SERVICES - [facility] Blood Venipuncture / Unknown 10/22/2023 1:01 AM CDT 10/22/2023 2:13 AM CDT Sarbjit Brooks MD HEMATOLOGY ORDERABL ES [facility] [employer] SERVICES [facility] CLIA# [id number] [address] [facility] [address] [place] [address] * (ABNORMAL) BASIC METABOLIC PANEL (10/22/2023 1:01 AM CDT) SODIUM 136 136 - 145 mmol/L 10/22/2023 3:05 AM [facility] LABORATORY [facility] POTASSIUM 3.4(L) 3.5 - 5.0 mmol/L 10/22/2023 3:05 AM [facility] LABORATORY [facility] CHLORIDE 99 98 - 107 mmol/L 10/22/2023 3:05 AM [facility] LABORATORY [facility] CO2 26 22 - 29 mmol/L 10/22/2023 3:05 AM [facility] LABORATORY [facility] CALCIUM 9.3 8.6 - 10.2 mg/dL 10/22/2023 3:05 AM [facility] LABORATORY [facility] BUN 20 8 - 23 mg/dL 10/22/2023 3:05 AM [facility] CREATININE 1.32(H) 0.51 - 0.95 mg/dL 10/22/2023 3:05 AM [facility] Comment:The GFR result is no t clinically significant on patients <18 or >70 years of age. GLUCOSE 123(H) 74 - 99 mg/dL 10/22/2023 3:05 AM [facility] GFR 41 mL/min/1.7 3 sq meter 10/22/2023 3:05 AM [facility] [employer] [facility] Comment:eGFR calculated with 2020 CKD-EPI equation. Vegetarian diet, extremely high or low muscle mass, and may affect results. Cystatin C with Glomerular Filtration Rate is a suitable alternative for these patients. ANION GAP 11 8 - 16 mmol/L 10/22/2023 3:05 AM [facility] [employer] [facility] Blood Venipuncture / Unknown 10/22/2023 1:01 AM CDT 10/22/2023 2:12 AM CDT Olga Sandhu DO CHEMISTRY ORDERABLES [facility] WAN# [id number] [address] [place] [address] * (ABNORMAL) PTT (10/21/2023 8:44 PM CDT) PTT 69.4(H) 24.4 - 36.4 seconds 10/21/2023 9:17 PM CDT [facility] [employer] [facility] Comment: PTT Therapeutic Range: Heparin Level ? PTT (seconds) <0.10 units/mL ? <53 0.10 - 0.30 units/mL ? 53 - 67 0.30 - 0.70 units/mL* ?67 - 95* 0.70 - 1.00 units/mL ? 95 - 116 *corresponds to therapeutic range for unfractionated heparin Blood Venipuncture / Unknown 10/21/2023 8:44 PM CDT 10/21/2023 8:51 PM CDT Monroe Howell MD HEMATOLOGY ORDERABLE S [facility]# [id number] [address] [place] [address] * URINALYSIS WITH REFLEX MICROSCOPIC (10/21/2023 8:04 PM CDT) COLOR UA Yellow Pale to Dark Yellow 10/21/2023 9:35 PM CDT [facility] CLARITY UA Clear Clear 10/21/2023 9:35 PM CDT [facility] LABORATORY [facility] SPECIFIC GRAVITY UA 1.016 1.003 - 1.035 10/21/2023 9:35 PM CDT [facility] LABORATORY SERVICES - [facility] PH UA 6.0 5.0 - 8.0 10/21/2023 9:35 PM CDT [facility] LABORATORY SERVICES - [facility] [place] LEUKOCYTE ESTERASE UA Negative Negative 10/21/2023 9:35 PM CDT [facility] LABORATORY SERVICES - [facility] [place] NITRITE UA Negative Negative 10/21/2023 9:35 PM CDT [facility] LABORATORY SERVICES - [facility] [place] PROTEIN UA Negative Negative 10/21/2023 9:35 PM CDT [facility] LABORATORY SERVICES - [facility] [place] GLUCOSE UA Negative Negative 10/21/2023 9:35 PM CDT [facility] LABORATORY SERVICES - [facility] [place] KETONES UA Negative Negative 10/21/2023 9:35 PM CDT [facility] LABORATORY SERVICES - [facility] [place] UROBILINOGEN UA Normal <2.0 mg/dL 9:35 PM CDT [facility] LABORATORY SERVICES - [facility] [place] BILIRUBIN UA Negative Negative 10/21/2023 9:35 PM CDT [facility]ATORY SERVICES [facility] BLOOD UA Negative Negative 10/21/2023 9:35 PM CDT [facility] LABORATORY SERVICES - [facility] Urine URINE SPECIMEN OBTAINED BY CLEAN CATCH PROCEDURE / Unknown Collection / Unknown 10/21/2023 8:04 PM CDT 10/21/2023 9:07 PM CDT Celia Orozco READING TEACHER URINE ORDERABLES [facility] LABORATORY [facility]# [id number] [address] [place] [address] * (ABNORMAL) PTT (10/21/2023 3:05 PM CDT) PTT 66.1(H) 24.4 - 36.4 seconds 10/21/2023 3:40 PM CDT [facility] LABORATORY SERVICES - [facility] Comment: PTT Therapeutic Range: Heparin Level ? [...] MD HEMATOLOGY ORDERABLE S Performing Organization Address [facility] Co de Phone Number [facility] LABORATORY SERVICES - [facility]# [id number] [address] [place] [address] * PREPARE RED BLOOD CELLS (10/21/2023 10:22 AM CDT) [facility] COMPONENT TYPE [id number] [facility] LABORATORY SERVICES -- [facility] COMPONENT IDENTIFICATION [id number] [facility] LABORATORY SERVICES -- [facility] UNIT ABO O [facility] LABORATORY SERVICES -- [facility] UN[facility] RH POS [facility] LABORATORY SERVICES -- [place] CROSSMATCH Compatible [facility] LABORATORY SERVICES -- [facility] COMPONENT STATUS Returned [facility] LABORATORY SERVICES -- [place] COMPONENT EXPIRATION DATE/TIME [id number] [facility] LABORATORY SERVICES -- [place] COMPONENT CODING SYSTEM 5100 [facility] LABORATORY SERVICES -- [place] VOLUME, BLOOD PRODUCT 350 [facility] LAB[facility]ATORY SERVICES [facility] 10/21/2023 10:2 2 AM CDT Celia Orozco NP LAB TRANSFUSION JAMES DIANA Performing Organization Address [facility] Co de Phone Number [facility] LABORATORY SERVICES -- [facility]# [id number] [address] [place] [address] * PREPARE RED BLOOD CELLS (10/21/2023 10:22 AM CDT) Pathologist [facility] COMPONENT TYPE [id number] [facility] LABORATORY SERVICES -- [place] COMPONENT IDENTIFICATION [id number] [facility] LABORATORY SERVICES -- [place] UNIT ABO O [facility] LABORATORY SERVICES -- [place] UN[facility] RH POS [facility] LABORATORY SERVICES -- [place] CROSSMATCH Compatible [facility] LABORATORY SERVICES -- [facility] COMPONENT STATUS Returned [facility] LABORATORY SERVICES -- [place] COMPONENT EXPIRATION DATE/TIME [id number] [facility] LABORATORY SERVICES -- [place] COMPONENT CODING SYSTEM 5100 [facility] LABORATORY SERVICES -- [place] VOLUME, BLOOD PRODUCT 350 [facility] LABORATORY SERVICES -- [place] Other, specify 10/21/2023 10 :22 AM CDT Celia Orozco READING TEACHER LAB TRANSFUSION JAMES DIANA [facility] LABORATORY SERVICES -- [facility] CLIA# [id number] [address] [place] [address] * (ABNORMAL) PTT (10/21/2023 6:46 AM CDT) [facility] PTT 100.7(H) 24.4 - 36.4 seconds 10/21/2023 7:30 AM CDT [facility] LABORATORY SERVICES - [facility] Comment: PTT Therapeutic Range: Heparin Level ? PTT (seconds) <0.10 units/mL ? <53 0.10 - 0.30 units/mL ? 53 - 67 0.30 - 0.70 units/mL* ?67 - 95* 0.70 - 1.00 units/mL ? 95 - 116 *corresponds to therapeutic range for unfractionated heparin Blood Venipuncture / Unknown 10/21/2023 6:46 AM CDT 10/21/2023 6:59 AM CDT Olga Sandhu DO HEMATOLOGY ORDERABLE S [facility] LABORATORY SERVICES - [facility] CLIA# [id number] [address] [place] [address] * (ABNORMAL) CBC WITHOUT DIFFERENTIAL (10/21/2023 6:46 AM CDT) WBC 8.9 4.0 - 9.8 K/uL 10/21/2023 7:18 AM CDT [employer] LABORATORY SERVICES [facility] RBC 3.36(L) 3.90 - 4.90 M/uL 10/21/2023 7:18 AM CDT [facility] LABORATORY SERVICES - [facility] HEMOGLOBIN 9.9(L) 11.8 - 14.8 g/dL 10/21/2023 7:18 AM CDT [facility] LABORATORY SERVICES - [facility] HEMATOCRIT 31.1(L) 35.5 - 44.0 % 10/21/2023 7:18 AM CDT [facility] LABORATORY SERVICES - [facility] MCV 92.6 82.0 - 99.0 fL 10/21/2023 7:18 AM CDT [employer] LABORATORY SERVICES - [facility] MCH 29.5 27.2 - 32.6 pg 10/21/2023 7:18 AM CDT [facility] LABORATORY SERVICES - [facility] MCHC 31.8 31.5 - 35.5 g/dL 10/21/2023 7:18 AM CDT [facility] LABORATORY SERVICES - [facility] PLATELETS 231 140 - 350 K/uL 10/21/2023 7:18 AM CDT [employer] LABORATORY SERVICES - [facility] MPV 11.7 9.3 - 12.4 fL 10/21/2023 7:18 AM CDT [employer] LABORATORY SERVICES - [facility] RDW 13.7 11.5 - 14.5 % 10/21/2023 7:18 AM CDT [employer] LABORATORY SERVICES - [facility] RDW-STDEV 46.5 37.1 - 48.7 fL 10/21/2023 7:18 AM CDT [employer] LABORATORY SERVICES - [facility] Blood Venipuncture / Unknown 10/21/2023 6:46 AM CDT 10/21/2023 6:59 AM CDT Sarbjit Brooks MD HEMATOLOGY ORDERABL ES [facility] LABORATORY SERVICES [facility]# [id number] [address] [facility] [place] [place] [address] * (ABNORMAL) BASIC METABOLIC PANEL (10/21/2023 6:46 AM CDT) Pathologist [facility] SODIUM 136 136 - 145 mmol/L 10/21/2023 8:03 AM [facility] LABORATORY [facility] POTASSIUM 3.6 3.5 - 5.0 mmol/L 10/21/2023 8:03 AM [facility] LABORATORY [facility] - [facility] CHLORIDE 99 98 - 107 mmol/L 10/21/2023 8:03 AM [facility] LABORATORY [facility] CO2 24 22 - 29 mmol/L 10/21/2023 8:03 AM [facility] LABORATORY [facility] - [facility] CALCIUM 9.2 8.6 - 10.2 mg/dL 10/21/2023 8:03 AM [facility] LABORATORY [facility] BUN 15 8 - 23 mg/dL 10/21/2023 8:03 AM [facility] LABORATORY [facility] CREATININE 0.94 0.51 - 0.95 mg/dL 10/21/2023 8:03 AM [facility] LABORATORY [facility] Comment:The GFR result is no t clinically significant on patients <18 or >70 years of age. GLUCOSE 107(H) 74 - 99 mg/dL 10/21/2023 8:03 AM [facility] LABORATORY [facility] GFR >60 mL/min/1.7 3 sq meter 10/21/2023 8:03 AM [facility] [employer] [facility] Comment:eGFR calculated with 2020 CKD-EPI equation. Vegetarian diet, extremely high or low muscle mass, and may affect results. Cystatin C with Glomerular Filtration Rate is a suitable alternative for these patients. ANION GAP 13 8 - 16 mmol/L 10/21/2023 8:03 AM CDT [facility] Blood Venipuncture / Unknown 10/21/2023 6:46 AM CDT 10/21/2023 6:59 AM CDT Olga Sandhu DO CHEMISTRY ORDERABLES Performing Organization Address [facility] de Phone Number [facility] CLIA# [id number] [address] [place] [address] * (ABNORMAL) PTT (10/20/2023 10:05 PM CDT) PTT 64.7(H) 24.4 - 36.4 seconds 10/20/2023 10:48 PM CDT [facility] Comment: PTT Therapeutic Range: Heparin Level [...] DO HEMATOLOGY ORDERABLE S Performing Organization Address [facility] Co de Phone Number [facility]# [id number] [address] [place] [address] * (ABNORMAL) PTT (10/20/2023 3:49 PM CDT) PTT 77.8(H) 24.4 - 36.4 seconds 10/20/2023 4:54 PM CDT [employer] LABORATORY SERVICES - [facility] Comment: PTT Therapeutic Range: Heparin Level ? PTT (seconds) <0.10 units/mL ? <53 0.10 - 0.30 units/mL ? 53 - 67 0.30 - 0.70 units/mL* ?67 - 95* 0.70 - 1.00 units/mL ? 95 - 116 *corresponds to therapeutic range for unfractionated heparin Blood Venipuncture / Unknown 10/20/2023 3:49 PM CDT 10/20/2023 4:37 PM CDT Olga Sandhu DO HEMATOLOGY ORDERABLE S [facility] [employer] SERVICES [facility]# [id number] 5 [facility] [place] [address] * URINALYSIS WITH REFLEX MICROSCOPIC (10/20/2023 7:49 AM CDT) COLOR UA Pale Yellow Pale to Dark Yellow 10/20/2023 8:20 AM CDT [employer] LABORATORY SERVICES [facility] CLARITY UA Clear Clear 10/20/2023 8:20 AM CDT [facility] LABORATORY SERVICES - [facility] SPECIFIC GRAVITY UA 1.011 1.003 - 1.035 10/20/2023 8:20 AM CDT [facility] LABORATORY SERVICES - [facility] PH UA 6.0 5.0 - 8.0 10/20/2023 8:20 AM CDT [facility] LABORATORY SERVICES [facility] LEUKOCYTE ESTERASE UA Negative Negative 10/20/2023 8:20 AM CDT [facility] LABORATORY SERVICES - [facility] [place] NITRITE UA Negative Negative 10/20/2023 8:20 AM CDT [facility] LABORATORY SERVICES - [facility] [place] PROTEIN UA Negative Negative 10/20/2023 8:20 AM CDT [facility] LABORATORY SERVICES - [facility] [place] GLUCOSE UA Negative Negative 10/20/2023 8:20 AM CDT [facility] LABORATORY SERVICES - [facility] [place] KETONES UA Negative Negative 10/20/2023 8:20 AM CDT [facility] LABORATORY SERVICES - [facility] [place] UROBILINOGEN UA Normal <2.0 mg/dL 8:20 AM CDT [facility] LABORATORY SERVICES - [facility] [place] BILIRUBIN UA Negative Negative 10/20/2023 8:20 AM CDT [facility] LABORATORY SERVICES - [facility] [place] BLOOD UA Negative Negative 10/20/2023 8:20 AM CDT [facility] LABORATORY [facility] [place] Urine URINE SPECIMEN OBTAINED BY CLEAN CATCH PROCEDURE / Unknown Collection / Unknown 10/20/2023 7:49 AM CDT 10/20/2023 8:09 AM CDT Tana Thorne PA-C URINE ORDERABLE S [facility] [id number] [address] [facility] [place] [address] * XR CHEST PA AND LATERAL 2 VW (10/20/2023 7:38 AM CDT) Anatomical Region Laterality Modality Chest Computed Radiogr aphy 10/20/2023 7:38 AM CDT Impressions 10/20/2023 3:01 PM CDT IMPRESSION: Stable chest radiograph. DICTATION LOCATION: Location - [facility] ?? Narrative 10/20/2023 3:01 PM CDT PA [...] limits. IMPRESSION: Stable chest radiograph. DICTATION LOCATION: [address] Tana Thorne PA-C DIAGNOSTIC IMAG ING ORDERABLES * (ABNORMAL) PTT (10/20/2023 7:07 AM CDT) PTT 86.1(H) 24.4 - 36.4 seconds 10/20/2023 7:54 AM CDT [facility] [employer] [facility] Comment: PTT Therapeutic Range: Heparin Level ? PTT (seconds) <0.10 units/mL ? <53 0.10 - 0.30 units/mL ? 53 - 67 0.30 - 0.70 units/mL* ?67 - 95* 0.70 - 1.00 units/mL ? 95 - 116 *corresponds to therapeutic range for unfractionated heparin Blood Venipuncture / Unknown 10/20/2023 7:07 AM CDT 10/20/2023 7:15 AM CDT Olga Sandhu DO HEMATOLOGY ORDERABLE S [facility] LABORATORY SERVICES - [facility]# [id number] [address] [place] [address] * (ABNORMAL) CBC WITHOUT DIFFERENTIAL (10/20/2023 1:05 AM CDT) WBC 9.2 4.0 - 9.8 K/uL 10/20/2023 1:56 AM CDT [employer] LABORATORY SERVICES - [facility] [place] RBC 3.15(L) 3.90 - 4.90 M/uL 10/20/2023 1:56 AM CDT [employer] LABORATORY SERVICES - . [place] HEMOGLOBIN 9.5(L) 11.8 - 14.8 g/dL 10/20/2023 1:56 AM CDT [employer] LABORATORY SERVICES - [facility] [place] HEMATOCRIT 28.8(L) 35.5 - 44.0 % 10/20/2023 1:56 AM CDT [employer] [facility] MCV 91.4 82.0 - 99.0 fL 10/20/2023 1:56 AM CDT [employer] LAB[facility]ATORY SERVICES [facility] MCH 30.2 27.2 - 32.6 pg 10/20/2023 1:56 AM CDT [employer] LABORATORY SERVICES - [facility] MCHC 33.0 31.5 - 35.5 g/dL 10/20/2023 1:56 AM CDT [employer] [facility] PLATELETS 221 140 - 350 K/uL 10/20/2023 1:56 AM CDT [employer] LAB[facility]ATORY SERVICES - [facility] MPV 11.9 9.3 - 12.4 fL 10/20/2023 1:56 AM CDT [employer] LABORATORY SERVICES - . [place] RDW 13.9 11.5 - 14.5 % 10/20/2023 1:56 AM CDT [employer] LABORATORY SERVICES - [facility] RDW-STDEV 46.5 37.1 - 48.7 fL 10/20/2023 1:56 AM CDT [employer] [facility] Blood Venipuncture / Unknown 10/20/2023 1:05 AM CDT 10/20/2023 1:34 AM CDT Sarbjit Brooks MD HEMATOLOGY ORDERABL ES Performing Organization Address City/State/[facility] Co de Phone Number [facility] CLIA# [id number] [address] [place] [address] * (ABNORMAL) PTT (10/20/2023 1:05 AM CDT) Pathologist [facility] [place] PTT 68.0(H) 24.4 - 36.4 seconds 10/20/2023 1:56 AM CDT [facility] [employer] [facility] Comment: PTT Therapeutic Range: Heparin Level [...] DO HEMATOLOGY ORDERABLE S Performing Organization Address [facility]/State/ZIP Co de Phone Number [facility] [employer] [facility] [id number] [address] [place] [address] * (ABNORMAL) BASIC METABOLIC PANEL (10/20/2023 1:05 AM CDT) Pathologist [facility] [place] SODIUM 136 136 - 145 mmol/L 10/20/2023 2:18 AM CDT [facility] POTASSIUM 3.8 3.5 - 5.0 mmol/L 10/20/2023 2:18 AM CDT [facility] CHLORIDE 100 98 - 107 mmol/L 10/20/2023 2:18 AM [facility] CO2 27 22 - 29 mmol/L 10/20/2023 2:18 AM T [facility] CALCIUM 9.5 8.6 - 10.2 mg/dL 10/20/2023 2:18 AM T [facility] BUN 20 8 - 23 mg/dL 10/20/2023 2:18 AM [facility] CREATININE 0.87 0.51 - 0.95 mg/dL 10/20/2023 2:18 AM [facility] Comment:The GFR result is no t clinically significant on patients <18 or >70 years of age. GLUCOSE 104(H) 74 - 99 mg/dL 10/20/2023 2:18 AM [facility] GFR >60 mL/min/1.7 3 sq meter 10/20/2023 2:18 AM [facility] Comment:eGFR calculated with 2020 CKD-EPI equation. Vegetarian diet, extremely high or low muscle mass, and may affect results. Cystatin C with Glomerular Filtration Rate is a suitable alternative for these patients. ANION GAP 9 8 - 16 mmol/L 10/20/2023 2:18 AM [facility] Blood Venipuncture / Unknown 10/20/2023 1:05 AM CDT 10/20/2023 1:33 AM CDT Olga Sandhu DO CHEMISTRY ORDERABLES [facility] [id number] [employer] [facility] [place] [address] * TYPE AND SCREEN (10/20/2023 1:05 AM CDT) ABO GROUP O 10/20/2023 3:24 AM T [facility] RH (D) TYPE Positive 10/20/2023 3:24 AM [facility] ANTIBODY SCREEN Negative 10/20/2023 3:24 AM CDT [facility] Blood Venipuncture / Unknown 10/20/2023 1:05 AM CDT 10/20/2023 1:33 AM CDT Tana Thorne PA-C BLOOD BANK ORDClaudia DIANA Performing Organization Address [facility]/ZIP Co de Phone Number [facility]ATORY [facility]# [id number] [address] [place] [address] * HEMOGLOBIN A1C (10/20/2023 1:05 AM CDT) HEMOGLOBIN A1C 5.6 <5.7 % 10/20/2023 2:05 AM CDT [facility] LABORATORY SERVICES [facility] EST. AVG GLUCOSE, A1C 114 mg/dL 10/20/2023 2:05 AM CDT [facility] Blood Venipuncture / Unknown 10/20/2023 1:05 AM CDT 10/20/2023 1:34 AM CDT Narrative [facility] - 10/20/2023 2:05 AM CDT HGB A1C INTERPRETATION NORMAL: ? <5.7% PRE-DIABETES: 5.7 - 6.4% DIABETES: ? 6.5% OR GREATER Tana Thorne PA-C CHEMISTRY ORDER [place] Performing Organization Address City/[facility]/ZIP Co de Phone Number [facility] [employer] [facility]# [id number] [address] [place] [address] * (ABNORMAL) PTT (10/19/2023 5:39 PM CDT) PTT 37.5(H) 24.4 - 36.4 seconds 10/19/2023 6:14 PM CDT [facility] [facility] Comment: PTT Therapeutic Range: Heparin Level [...] MD HEMATOLOGY ORDERABLE S Performing Organization Address City/[facility] Co de Phone Number [facility] LABORATORY SERVICES [facility]# [id number] [address] [place] [address] * EKG 12-LEAD (10/19/2023 2:35 PM CDT) 10/19/2023 2:35 PM CDT Narrative INTERFACE SYSTEM - 10/19/2023 2:51 PM CDT ? [facility] ? [address] [place] [address] ? Test Date: ?2023-10-19 Pat Name: ? ZEE MARTINEZ ? Department: ?? 62 ?Room: ? G023 1 Gender: ? Female ? Fisher Lampara Net: ? : ?1945 ? Requested By: SARBJIT BROOKS S Order Number: [id number] ? [place] MD: ?? Raghu Joaquin ? Measurements Intervals ?[place] ? Rate: ? 67 ? P: ?97 AR: ? 202 ?QRS: ?33 QRSD: ? 87 ? T: ?43 QT: ? 327 ? QTc: ?347 ? Interpretive Statements SINUS RHYTHM SEPTAL MYOCARDIAL INFARCTION , PROBABLY OLD Electronically Signed On 10-19-2023 14:51:50 CDT by Raghu Joaquin Procedure Note Provider, Historical - 05/03/2024 [facility] [address] [facility] [address] , [place] [address] Test Date: 2023-10-19 Pat Name: ZEE MARTINEZ Department: 62 Room: [facility] Gender: Female Fisher Lampara Net: : 1945 Requested By: SARBJIT Martinez Order Number: [id number] [place] MD: Raghu Joaquin Measurements Intervals [place] Rate: 67 P: 97 AR: 202 QRS: 33 QRSD: 87 T: 43 QT: 327 QTc: 347 Interpretive Statements SINUS RHYTHM SEPTAL MYOCARDIAL INFARCTION , PROBABLY OLD Electronically Signed On 10-19-2023 14:51:50 CDT by Raghu Joaquin Shruthi Thomas NP ECG ORDERABLES INTERFACE SYSTEM Refer to clinic/hospital department * LEFT HEART CATH (10/19/2023 11:34 AM CDT) 10/19/2023 10:3 9 AM CDT Narrative [facility] - 10/19/2023 11:40 AM CDT Impression: 1. 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 ??Normal LV filling pressure 3. ??No significant aortic valve gradient Plan: 1. ??Begin removing air from radial band on arrival from catheterization laboratory technician as per protocol, max band time 45 minutes if no bleeding. 2. ??Medical therapy for CAD, CTS consult and admission for CABG Procedure Details CARDIAC CATHETERIZATION FINAL REPORT Date of Procedure: 10/19/2023 Conformal Pad Former: Sarbjit Brooks MD Access: right radial artery [...] air from radial band on arrival from catheterization laboratory technician as per protocol, max band time 45 minutes if no bleeding. 2. Medical therapy for CAD, CTS consult and admission for CABG 10/19/2023 10:12 AM Sarbjit Brooks MD Sarbjit Brooks MD CUP CATH ORDERABLES [facility] CLIA #[id number] [address] [id number] * (ABNORMAL) MANUAL DIFFERENTIAL (10/19/2023 9:58 AM CDT) [facility] Signature SEGMENTED NEUTROPHILS 55 % 10/19/2023 11:00 AM CDT [facility] LYMPHOCYTES RELATIVE 10(L) 43 - 53 % 10/19/2023 11:00 AM [facility] SERVICES - [facility] ATYPICAL LYMPHOCYTES RELATIVE 2 0 - 5 % 10/19/2023 11:00 AM [facility] MONOCYTES RELATIVE 33 % 10/19/2023 11:00 AM [facility] EOSINOPHILS RELATIVE 1 % 10/19/2023 11:00 AM T [facility] NEUTROPHILS ABSOLUTE COUNT 6.22 1.90 - 7.00 K/uL 10/19/2023 11:00 AM T [facility] SERVICES - [facility] LYMPHOCYTES ABSOLUTE 1.14 0.70 - 4.50 K/uL 10/19/2023 11:00 AM [facility] SERVICES - [facility] MONOCYTES ABSOLUTE 3.73(H) 0.10 - 1.30 K/uL 10/19/2023 11:00 AM [facility] SERVICES - [facility] EOSINOPHILS ABSOLUTE 0.10 0.00 - 0.70 K/uL 10/19/2023 11:00 AM T [facility] - [facility] TOTAL CELLS COUNTED IN DIFF 110 10/19/2023 11:00 AM [facility] RBC MORPHOLOGY abnormal 10/19/2023 11:[address] [facility] PLATELET EST. Consistent w Count 10/19/2023 11:00 AM [facility] - [facility] POIKILOCYTES 1+ /hpf 10/19/2023 11:00 AM [facility] - [facility] OVALOCYTES 1+ /hpf 10/19/2023 11:00 AM [facility] - [facility] Blood Venipuncture / Unknown 10/19/2023 9:58 AM CDT 10/19/2023 10:07 AM T Sarbjit Brooks MD HEMATOLOGY ORDERABL ES COM [facility]ORATORY SERVICES - [facility] CLIA# [id number] [address] [place] [address] * LIPID PANEL (10/19/2023 9:58 AM CDT) CHOLESTEROL 151 <200 mg/dL 10/19/2023 11:47 AM CDT [facility] [employer] [facility] TRIGLYCERIDE 83 <150 mg/dL 10/19/2023 11:47 AM CDT [facility] [facility] [place] HDL 44 40 - 59 mg/dL 10/19/2023 11:47 AM T [facility] [facility] LDL CALCULATED 90 <100 mg/dL 10/19/2023 11:47 AM T [facility] [facility] NON-HDL CHOLESTEROL 107 <130 mg/dL 10/19/2023 11:47 AM [facility] [employer] [facility] Blood Venipuncture / Unknown 10/19/2023 9:58 AM CDT 10/19/2023 10:07 AM CDT Narrative [facility] [employer] [facility] - 10/19/2023 11:47 AM CDT TOTAL CHOLESTEROL [...] . Sarbjit Brooks MD CHEMISTRY ORDERABLE S [facility] [employer] [facility] CLIA# [id number] [address] [place] [address] * (ABNORMAL) PROTIME-INR (10/19/2023 9:58 AM CDT) Pathologist [facility] PROTIME 15.3(H) 12.7 - 15.1 Seconds 10/19/2023 10:30 AM CDT [facility] INR 1.2(H) 0.9 - 1.1 10/19/2023 10:30 AM CDT [facility] Blood Venipuncture / Unknown 10/19/2023 9:58 AM CDT 10/19/2023 10:07 AM CDT Narrative [facility] [employer] [facility] - 10/19/2023 10:30 AM CDT INR Therapeutic Range: Adult: ?? 2.0 - 3.0 for pulmonary embolism or prophylaxis against venous ?thrombosis or systemic embolization. 2.0 - 3.0 for patients with tissue heart valves. 2.5 - 3.5 for patients with mechanical heart valves or post DE. Pediatric ??(12 years and under): 1.5 - 3.0 Although the target range in children is not well established, ?INR values of 1.5 - 3.0 are recommended for most patients. ?Higher values have been used in children with prosthetic ?cardiac valves and hereditary clotting disorders. (<3 days) therapeutic ranges have not been established. Sarbjit Brooks MD HEMATOLOGY ORDERABL ES [facility] [employer] [facility]# [id number] [address] [place] [address] * (ABNORMAL) CBC WITH DIFFERENTIAL (10/19/2023 9:58 AM CDT) WBC 11.4(H) 4.0 - 9.8 K/uL 10/19/2023 10:16 AM CDT [facility] - [facility] RBC 3.44(L) 3.90 - 4.90 M/uL 10/19/2023 10:16 AM CDT [facility] - [facility] HEMOGLOBIN 10.2(L) 11.8 - 14.8 g/dL 10/19/2023 10:16 AM CDT [facility] [place] HEMATOCRIT 31.5(L) 35.5 - 44.0 % 10/19/2023 10:16 AM CDT [facility] [place] MCV 91.6 82.0 - 99.0 fL 10/19/2023 10:16 AM CDT [facility] MCH 29.7 27.2 - 32.6 pg 10/19/2023 10:16 AM CDT [facility] - [facility] MCHC 32.4 31.5 - 35.5 g/dL 10/19/2023 10:16 AM CDT [facility]ORY [facility] RDW 13.9 11.5 - 14.5 % 10/19/2023 10:16 AM CDT [facility] RDW-STDEV 46.4 37.1 - 48.7 fL 10/19/2023 10:16 AM CDT [facility] PLATELETS 247 140 - 350 K/uL 10/19/2023 10:16 AM CDT [facility] MPV 11.7 9.3 - 12.4 fL 10/19/2023 10:16 AM T [facility] Blood Venipuncture / Unknown 10/19/2023 9:58 AM CDT 10/19/2023 10:07 AM CDT Sarbjit Brooks MD HEMATOLOGY ORDERABL ES [facility] [id number] [address] [place] [address] [address] * (ABNORMAL) COMPREHENSIVE METABOLIC PANEL (10/19/2023 9:58 AM CDT) SODIUM 138 136 - 145 mmol/L 10/19/2023 11:47 AM CDT [facility] POTASSIUM 3.1(L) 3.5 - 5.0 mmol/L 10/19/2023 11:47 AM [employer] LABORATORY SERVICES - [facility] CHLORIDE 98 98 - 107 mmol/L 10/19/2023 11:47 AM [employer] [facility] - [facility] CO2 29 22 - 29 mmol/L 10/19/2023 11:47 AM [employer] [facility] - [facility] CALCIUM 10.0 8.6 - 10.2 mg/dL 10/19/2023 11:47 AM [employer] [facility] - [facility] BUN 22 8 - 23 mg/dL 10/19/2023 11:47 AM [employer] CREATININE 1.06(H) 0.51 - 0.95 mg/dL 10/19/2023 11:47 AM [employer] Comment:The GFR result is no t clinically significant on patients <18 or >70 years of age. GLUCOSE 113(H) 74 - 99 mg/dL 10/19/2023 11:47 AM [facility] [facility] TOTAL PROTEIN 7.9 6.7 - 8.6 g/dL 10/19/2023 11:47 AM [employer] ALBUMIN 4.4 3.5 - 5.2 g/dL 10/19/2023 11:47 AM [employer] BILIRUBIN TOTAL 0.7 0.2 - 1.1 mg/dL 10/19/2023 11:47 AM [employer] ALKALINE PHOSPHATASE 83 35 - 104 U/L 10/19/2023 11:47 AM [employer] AST 14 <33 U/L 10/19/2023 11:47 AM [employer] ALT 7 <34 U/L 10/19/2023 11:47 AM [employer] GFR 53 mL/min/1.7 3 sq meter 10/19/2023 11:47 AM [employer] [facility] Comment:eGFR calculated with 2020 CKD-EPI equation. Vegetarian diet, extremely high or low muscle mass, and may affect results. Cystatin C with Glomerular Filtration Rate is a suitable alternative for these patients. ANION GAP 11 8 - 16 mmol/L 10/19/2023 11:47 AM CDT [facility] Blood Venipuncture / Unknown 10/19/2023 9:58 AM CDT 10/19/2023 10:07 AM CDT Narrative [facility] - 10/19/2023 11:47 AM CDT Samples containing indocyanine green cause interferences on Total and/or Direct Bilirubin and must not be measured. Sarbjit Brooks MD CHEMISTRY ORDERABLE S [facility] [employer] [facility] CLIA# [id number] [address] [place] [address] documented in this encounter Visit Diagnoses Not [...] Given 10/29/2023 6:21 AM CDT 100 mg glucagon HCL 1 mg/mL injection 1 mg 1 mg, IM, SEE ADMIN INSTRUCTIONS, Starting on Sun10/23/23 at 0759, Until Sun10/30/23 at 1930, Routine heparin 5,000 Units in sodium chloride 0.9% irrigation 500 mL IRRIGATION INTRA-PROCEDURE PRN, Starting on Sun10/22/23 at 1523, Until Sun10/22/23 at 1740, Routine, Intra-op Given 10/22/2023 3:23 PM CDT 1,000 mL Operative Site melatonin disintegrating tablet 5 mg 5 mg, [...] Given 10/23/2023 12:22 PM CDT 2 mg olmesartan (BENICAR) tablet 40 mg 40 [...] Given 10/28/2023 8:11 PM CDT 80 mg documented in this encounter Active and Recently Administered Medications Times are shown in CDT. Scheduled Medication Order 10/28/2023 10/29/2023 10/30/2023 acetaminophen (TYLENOL) tablet 650 mg (CANCELED) 650 mg, Oral, EVERY 4 HOURS, First dose on Sun10/23/23 at 0845, Until Discontinued, Routine 0058 (Given - Provider: Sadie Headley RN)0544 (Given - Provider: Sadie Headley RN)0833 (Given - Provider: Nicole Mtz, RN)1200 (Refused - Provider: Nicole Mtz, RN)1600 (Refused - Provider: Nicole Mtz, RN)2000 (Refused - Provider: Kait Fajardo, TUNDE) 0000 (Refused - Provider: Kait Fajardo RN)0400 (Refused - Provider: Kait Fajardo, TUNDE)0800 (Refused - Provider: Karma Palm RN) amiodarone (CORDARONE) tablet 200 mg 200 mg, Oral, EVERY 8 HOURS, First dose on Sun10/22/23 at 2100, Until Discontinued, Routine 0544 (Given - Provider: Sadie Headley RN)1221 (Given - Provider: Nicole Mtz, RN)2010 (Given - Provider: Kait Fajardo RN) 621 (Given - Provider: Kait Fajardo RN)124 (Given - Provider: Karma Palm RN)2031 (Given - Provider: Roseanne Tucker, RN) 05 (Given - Provider: Chloé Barrera, TUNDE)133 (Given - Provider: Karma Palm RN) apixaban (ELIQUIS) tablet 5 mg 5 mg, Oral, TWO TIMES DAILY, First dose on Sun10/24/23 at 0900, Until Discontinued, Routine, Indication: Non-valvular A Fib 0544 (Given - Provider: Sadie Headley RN)1738 (Given - Provider: Nicole Mtz RN) 06 (Given - Provider: Kait Fajardo RN)1816 (Given - Provider: Karma Palm RN) 05 (Given - Provider: Chloé Barrera RN) aspirin (ECOTRIN EC) tablet 81 mg 81 mg, Oral, DAILY, First dose on Sun10/25/23 at 0600, Until Discontinued, Routine 05 (Given - Provider: Sadie Headley RN) 06 (Given - Provider: Kait Fajardo RN) 05 (Given - Provider: Chloé Barrera RN) atorvastatin (LIPITOR) tablet 40 mg 40 mg, Oral, DAILY AT BEDTIME, First dose (after last modification) on Sun10/30/23 at 2100, Until Discontinued, Routine atorvastatin (LIPITOR) tablet 80 mg (CANCELED) 80 mg, Oral, DAILY AT BEDTIME, First dose on Sun10/23/23 at 2100, Until Discontinued, Routine 2010 (Given - Provider: Kait Fajardo RN) 2031 (Given - Provider: Roseanne Tucker, TUNDE) dextrose 5% - sodium chloride 0.9% infusion [...] Sadie Headley RN)1738 (Given - Provider: Nicole Mtz, RN) 0621 (Given - Provider: Kait Fajardo, TUNDE)181 (Given - Provider: Karma Palm, TUNDE) 0529 (Given - Provider: Chloé Barrera, TUNDE) glucagon HCL 1 mg/mL injection 1 mg 1 mg, IM, SEE ADMIN INSTRUCTIONS, Starting on Sun10/23/23 at 0759, Until Sun10/30/23 at 1930, Routine metoprolol tartrate (LOPRESSOR) tablet 25 mg 25 mg, Oral, TWO TIMES DAILY, First dose on Sun10/27/23 at 0645, Until Discontinued, Routine 0544 (Given - Provider: Sadie Headley, TUNDE)173 (Given - Provider: Nicole Mtz, TUNDE) 06 (Given - Provider: Kait Fajardo, TUNDE)1815 (Given - Provider: Karma Palm, TUNDE) 0529 (Given - Provider: Chloé Barrera, TUNDE) naloxone (NARCAN) 0.4 mg/mL injection 0.1-0.4 mg 0.1-0.4 mg, IV, SEE ADMIN INSTRUCTIONS, Starting on Sun10/23/23 at 1214, Until Sun10/30/23 at 1930, Routine olmesartan (BENICAR) tablet 20 mg (CANCELED) 20 mg, Oral, DAILY, First dose (after last modification) on Sun10/27/23 at 0600, Until Discontinued, Routine 0545 (Given - Provider: Sadie Headley, TUNDE) olmesartan (BENICAR) tablet 40 mg 40 mg, Oral, DAILY, First dose (after last modification) on Sun10/29/23 at 0600, Until Discontinued, Routine 0623 (Given - Provider: Kait Fajardo RN) 05 (Given - Provider: Chloé Barrera RN) pantoprazole [...] Arash) documented in this encounter Care Teams Strategic Accounts Manager Relationship Specialty Start Date End Date Aliza Bain MD [address] [place] [address] PCP - General Family Practice 11/22/21 documented as of this encounter
--- OUTSIDE RECORDS SUMMARY | 2024-07-01 00:41 | XMS_ITS | Encounter Summary ---
Author Organization [facility] Address [address] [place] [address] Care Team Providers Care Gold Assayer Name Role Phone Aliza Bain MD Primary Care Provider Encounter Details Date Type Department Care Team (Late st Contact Info) Description 10/04/2023 Prep for Surgery [facility] At [address] [place] [address] Kiel Vasquez MD [address] [place] [address] [address] [place] [address] Pre-op testing (Primary Dx); Chronic diastolic congestive heart failure Social History Tobacco Use Types Packs/Day Years [...] and Family Not on file 07/29/2020 Attends [employer] Services Not on file 07/29 Do you [...] st Contact Info) Description 2024 11:00 AM OFFICE TECHNOLOGY INSTRUCTOR Appointment [facility] [address] [place] [address] 07/21/2024 9:45 AM OFFICE TECHNOLOGY INSTRUCTOR Appointment [facility] Mechanical Pencils Assembler [address] [place] [address] Kiel Vasquez MD [address] [place] [address] 07/21/2024 9:53 AM OFFICE TECHNOLOGY INSTRUCTOR Hospital Encounter [facility] Mechanical Pencils Assembler [address] [place] [address] Kiel Vasquez MD [address] [place] [address] Paroxysmal A-fib 07/21/2024 9:53 AM OFFICE TECHNOLOGY INSTRUCTOR - 07/21/2024 11:46 AM OFFICE TECHNOLOGY INSTRUCTOR Surgery [facility] Mechanical Pencils Assembler [address] [place] [phone] Kiel Vasquez MD [address] [place] [address] [address] [place] [phone] Left atrial appendage closure percutaneous 07/28/2024 8:30 AM OFFICE TECHNOLOGY INSTRUCTOR Office Visit [facility] - [place] [address] [facility] [address] [place] [address] Nahid Hickman MD [address] [facility] [address] [place] [address] 09/09/2024 1:00 PM CDT Office Visit [facility] At [address] [place] [address] Kiel Vasquez MD [address] [place] [address] 2014 [place] [phone] 12/16/2024 11:00 AM CDT Office Visit [facility] HEART AND VASCULAR EP AT [address] [place] [address] Demetrius Bowling DNP [address] [place] [address] 2014 [place] [address] 02/05/2025 10:45 AM CDT Telephone Check Up [facility] At [address] [place] [phone] 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 FNP [address] [place] [phone] documented as of this encounter Visit Diagnoses Diagnosis Pre-op testing- Primary Preoperative examination, unspecified Chronic diastolic congestive heart failure Chronic diastolic heart failure Paroxysmal atrial fibrillation- Primary Atrial fibrillation Paroxysmal A-fib Atrial fibrillation Paroxysmal A-fib Atrial fibrillation documented in this encounter Care Teams Gold Assayer Relationship Specialty Start Date End Date Aliza Bain MD [address] [place] [phone] PCP - General Family Practice 11/22/21 documented as of this encounter
--- OUTSIDE RECORDS SUMMARY | 2024-07-01 00:41 | XMS_ITS | Encounter Summary ---
Author Organization [facility] Address [address] [place] [address] Care Team Providers Care Product Marketing Programs Manager Name Role Phone Aliza Bain MD Primary Care Provider Encounter Details Date Type Department Care Team (Late st Contact Info) Description 10/19/2023 Abstract [facility] Oncology and Hematology - [place] [address] [facility] [address] [place] [address] Nahid Hickman MD [address] [employer] [address] [place] [address] Social History Tobacco Use Types [...] any clubs o r organizations such as druze groups, unions, fraternal or athletic groups, or [...] st Contact Info) Description 2024 11:00 AM FILTROSE CRUSHER Appointment [facility] [address] [place] [phone] 07/21/2024 9:45 AM FILTROSE CRUSHER Appointment [facility] Insulation Foreman [address] [place] [address] Kiel Vasquez MD [address] [facility] [address] [facility] [address] [place] [address] 07/21/2024 9:53 AM FILTROSE CRUSHER Hospital Encounter [facility] Insulation Foreman [address] [place] [address] Kiel Vasquez MD [address] [place] [address] 2014 [place] [address] Paroxysmal A-fib 07/21/2024 9:53 AM FILTROSE CRUSHER - 07/21/2024 11:46 AM FILTROSE CRUSHER Surgery [facility] Insulation Foreman [address] [place] [phone] Kiel Vasquez MD [address] [place] [address] 2014 [place] [address] Left atrial appendage closure percutaneous 07/28/2024 8:30 AM FILTROSE CRUSHER Office Visit [facility] Oncology and Hematology - [place] [address] [facility] [address] [place] [address] Nahid Hickman MD [address] [facility] [address] [place] [address] 09/09/2024 1:00 PM CDT Office Visit [facility] Heart and Vascular At [address] [place] [address] Kiel Vasquez MD [address] [place] [address] 2014 [place] [address] 12/16/2024 11:00 AM CDT Office Visit [facility] HEART AND VASCULAR EP AT [address] [place] [address] Demetrius Bowling DNP [address] [place] [address] 2014 [place] [address] 02/05/2025 10:45 AM CDT Telephone Check Up [facility] Heart and Vascular At [address] [place] [address] 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 FNP [address] [place] [address] [place] [address] documented as of this encounter Visit Diagnoses Not on filedocumented in this encounter Care Teams Product Marketing Programs Manager Relationship Specialty Start Date End Date Aliza Bain MD [address] [place] [phone] PCP - General Family Practice 11/22/21 documented as of this encounter
--- OUTSIDE RECORDS SUMMARY | 2024-07-01 00:41 | XMS_ITS | Encounter Summary ---
Author Organization [facility] Address [address] [place] [address] Care Team Providers Care Photograph Developer Name Role Phone Aliza Bain MD Primary Care Provider Reason for Visit * Auth/Cert (Routine) Specialty Diagnoses / Procedures Referred By Contac t Referred To Contact Cardiology Procedures VT CATH PLMT L HRT & ARTS W/NJX & ANGIO IMG S&I Left heart cath Kiel Vasquez MD [address] [facility] [address] [place] [address] [facility] [employer] [address] [place] [address] Referral ID Status Reason Start Date Expiration Date Visits Re quested Visits Authorized [id number] 1 1 Encounter Details Date Type Department Care Team (Latest Contact Info) Description 10/19/2023 9:07 AM CDT - 10/19/2023 11:59 PM CDT Hospital Encounter [facility] [address] [place] [address] Alessandro Sorto MD [address] [facility] [address] [place] [address] Discharge Disposition: Home or Self Care Social [...] any clubs o r organizations such as restoration groups, unions, fraternal or athletic groups, or [...] for 5 days. 15 Tablet 10/30/2023 11/04/2023 amiodarone (CORDARONE) 200 mg tablet Take 1 Tablet (200 mg) by mouth every 8 hours for 5 days. 10/30/2023 10/30/2023 atorvastatin (LIPITOR) 40 mg tablet Take 1 Tablet (40 mg) by mouth daily at bedtime. 10/30/2023 10/30/2023 metoprolol tartrate (LOPRESSOR) 25 mg tablet Take 1 Tablet (25 mg) by mouth 2 times daily. 10/30/2023 10/30/2023 oxyCODONE (ROXICODONE) 5 mg tabletIndications:S/P CABG (coronary artery bypass graft) Take 1 Tablet (5 mg) by mouth every 4 hours as needed for Pain, Severe. Max Daily Amount: 30 mg 10/30/2023 10/30/2023 metoprolol tartrate (LOPRESSOR) 25 mg tablet Take 1 Tablet (25 mg) by mouth 2 times daily. 60 Tablet 10/30/2023 11/16/2023 atorvastatin (LIPITOR) 40 mg tablet Take 1 Tablet (40 mg) by mouth daily at bedtime. 30 Tablet 10/30/2023 11/22/2023 amLODIPine (NORVASC) 10 mg tablet Take 1 Tablet (10 mg) by mouth daily. 90 Tablet 09/25/2023 10/30/2023 hydroCHLOROthiazide 25 mg tablet TAKE 1 TABLET BY MOUTH EVERY DAY 05/07/2020 10/30/2023 documented as of this encounter Plan of Treatment Upcoming Encounters Date Type Department Care Team (Late st Contact Info) Description 2024 11:00 AM INFORMATION SECURITY ANALYST Appointment [facility] [address] [place] [address] 07/21/2024 9:45 AM INFORMATION SECURITY ANALYST Appointment [facility] [employer] [address] [place] [address] Kiel Vasquez MD [address] [facility] [address] [place] [address] 07/21/2024 9:53 AM INFORMATION SECURITY ANALYST Hospital Encounter [facility] [employer] [address] [place] [address] Kiel Vasquez MD [address] [facility] [address] [place] [address] Paroxysmal A-fib 07/21/2024 9:53 AM INFORMATION SECURITY ANALYST - 07/21/2024 11:46 AM INFORMATION SECURITY ANALYST Surgery [facility] [employer] [address] [place] [address] Kiel Vasquez MD [address] [facility] [address] [place] [address] Left atrial appendage closure percutaneous 07/28/2024 8:30 AM INFORMATION SECURITY ANALYST Office Visit [facility]ematology - [place] [address] [place] [address] Nahid Hickman MD [address] [place] [address] 09/09/2024 1:00 PM CDT Office Visit [facility] At [address] [place] [address] Kiel Vasquez MD [facility] [address] [facility] [address] [place] [address] 12/16/2024 11:00 AM CDT Office Visit [facility] AT [address] [place] [address] Demetrius Bowling DNP [address] [place] [address] [address] [place] [address] 02/05/2025 10:45 AM CDT Telephone Check Up [facility] At [address] [place] [address] 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 FNP [facility] [place] [address] documented as of this encounter Visit Diagnoses Not on filedocumented in this encounter Care Teams Photograph Developer Relationship Specialty Start Date End Date Aliza Bain MD [address] [place] [address] PCP - General Family Practice 11/22/21 documented as of this encounter
--- OUTSIDE RECORDS SUMMARY | 2024-07-01 00:41 | XMS_ITS | Encounter Summary ---
Author Organization [facility] Address [address] [place] [address] Care Team Providers Care Chemical Lab Supervisor Name Role Phone Aliza Bain MD Primary Care Provider Reason for Referral * Nuclear Medicine (Routine) - Closed Specialty Diagnoses / Procedures Referred By Contac t Referred To Contact Radiology Diagnoses Chronic diastolic congestive heart failure New onset atrial fibrillation Benign hypertension Procedures NM MYOCARD PERF IMAG SPECT Kiel Cuevas MD [address] [facility] [address] [place] [address] [facility] Nuclear Cardiology [address] [place] [address] Referral ID Status Reason Start Date Expiration Date Visits Re quested Visits Authorized [id number] Closed 09/25/2023 10/25/2024 1 1 Reason for Visit * Nuclear Medicine (Routine) - Closed Specialty Diagnoses / Procedures Referred By Contac t Referred To Contact Radiology Diagnoses Chronic diastolic congestive heart failure New onset atrial fibrillation Benign hypertension Procedures NM MYOCARD PERF IMAG SPECT Kiel Cuevas MD [address] [facility] [address] [place] [address] [facility] Nuclear Cardiology [address] [place] [address] Referral ID Status Reason Start Date Expiration Date Visits Re quested Visits Authorized [id number] Closed 09/25/2023 10/25/2024 1 1 Encounter Details Date Type Department Care Team (Latest Contact Info) Description 10/03/2023 11:54 AM CDT - 10/03/2023 11:59 PM CDT Hospital Encounter [facility] Nuclear Medicine [address] [place] [address] Kiel Vasquez MD [address] [place] [id number] Discharge Disposition: Home or Self Care Social [...] and Family Not on file 07/29/2020 Attends [employer] Not on file 07/29 Do you belong to any clubs o r organizations such as yazidism groups, unions, fraternal or athletic groups, or [...] 05/07/2020 10/30/2023 documented as of this encounter Miscellaneous Notes * Treatment Plan - Aneta Ortega - 10/03/2023 12:45 PM CDT Images from the original note were not included. [facility] IMS Medication and Flush Protocol - Nuclear Medicine Procedures [facility] Approved by: [facility] - Medical Executive Committee Approval Date: 03/08/2023 ORDERS ARE ENTERED ???PER PROTOCOL?? Enter the protocol in the patient's electronic health record using smartphrase: .imagingnucmedicineprotocol The Nuclear Medicine Department and PET/CT Department, in collaboration with the Radiology Patient Care Manager, Satellite Installation Technician, Non-Invasive Cardiology Patient Care Manager, the Pharmacy and Therapeutic Committee, and the Medical Executive Committee, has approved the Nuclear Medicine Medication and Flush Protocol available for implementation by the Cranberry Sorter The Cranberry Sorter may implement the Nuclear Medicine Medication and Flush Protocol when a provider orders a Nuclear Medicine study by paper or electronic order The Cranberry Sorter will order all medication that appears on the MAR using 'Per Protocol or Standing - Cosign Required' The Cranberry Sorter will: Verify the correct patient using two patient identifiers Review the order to verify appropriate procedure by reviewing the paper or electronic order before administering the radiopharmaceutical. The order must be signed by a provider. For female patients, confirm the patient is not or breast-feeding as described in department policies Ensure consent forms are obtained for Stress Test and Therapeutic procedures At the time of administration of the radiopharmaceutical, verify the correct patient, correct dosage and radiopharmaceutical with the dose ticket, and the route of administration. All administrationswill be performed in designated areas. Only authorized personnel are to administer radiopharmaceuticals. All injections are performed using radiation safety and universal precautions The exact dose amount assayed in the dose calibrator will be recorded in the Nuclear Medicine Information System Communication Orders: For ordered imaging procedures requiring intravenous access: Initiate a peripheral IV, if not already in place, and discontinue IV prior to discharge (if outpatient). Enter order if needed: Insert Peripheral IV Medication Orders: Local Anesthetic for use to initiate IV ADULT Lidocaine 4% (L.M.X.4) applied topically ONE TIME prior to IV catheter insertion PRN (L.M.X.4 % should be applied 15 minutes prior to procedure) Chart RBCTAGGINGSTL and/or WBCTAGGINGSTL smartphrase as appropriate PEDIATRIC Lidocaine 4% (L.M.X.4) applied topically ONE TIME prior to IV catheter insertion PRN (apply 15 minutes prior to procedure) Sucrose 24% (Tootsweet; Sweet-Ease) oral solution 0.2 mL oral (apply to tongue on pacifier or clean, gloved finger), ONE TIME 2 minutes prior to painful procedure. May repeat dose x1 PRN to complete procedure Sodium chloride 0.9% (normal saline) flush 10 mL PRN for saline lock or medication administration. For respiratory distress, initiate oxygen and/or increase O2 to maintain saturation greater than 90% Procedure Specific Medications: Adult Procedures & Dosages: Note: Radiopharmaceuticals dosages with a range are determined by ocean transportation intermediary calibration Note: In acute Tc99m shortages, radiopharmaceutical dosages may be decreased with approval and documentation within department from medical program specialist/AU. Note: Hybrid SPECT/CT imaging used as appropriate for exam and/or as directed by Radiologist PROCEDURE DOSAGE Bone Marrow Imaging Eg12x-Iimvvuck Sulfur Colloid (Iuyhtbwbls19h- filtered sulfur colloid), Administer 8mCi, IV, ONE TIME. Bone Scan Imaging (Whole Body, Limited, 3-Phase, or SPECT) Jl01j-KPL (Ngqqdelywn59w-mrjoxuker diphosphonate), Administer 25mCi, IV, ONE TIME. OR Ab71m-ULK (Sxmyzhbxas81v-vcrudysxeefgotnn diphosphonate), Administer 25mCi, IV, ONE TIME. Brain Imaging Me84f-HKSC (Aqlefsekbo43p-hcklggemvl-tvqproat-smehpusiikdf), Administer 20mCi, IV, ONE TIME. Brain SPECT Imaging Qj16e-BJCDZ (Ceretec) (Lkzmtzxrsu76u-vcpyjkraytgnknjcsil amine oxime), Administer 20mCi, IV, ONE TIME. OR Tl-201 (Thallium Chloride-201), Administer 6mCi, IV, ONE TIME. C14 Urea Breath Test (PY Test) T64-Fxkf (Carbon-14 Urea), Administer 1uCi capsule, Orally, ONE TIME. Cisternogram Imaging In-111 DTPA (Indium-111 gtbuwjhixq-nkucquuv-ysgduyywiuwj), Neuroradiologist toadminister 0.5mCi, Intrathecally, ONE TIME. Cystogram Imaging Tc-99m Pertechnetate (Cwhwdogams28k-uzlrrasswfkiy) Administer 1mCi Ba62e-usehgkbqmhklm, intra-roman catheter, ONE TIME AND Administer NS per calculated expected bladder volume, intra-roman catheter, ONE TIME. DaTscan Imaging I-123 Ioflupane (Iodine-123 ioflupane), Administer 5mCi, IV, ONE TIME. AND Administer SSKI (Potassium Iodide) drops, 130mg, Orally, ONE TIME 30 minutes prior to radiopharmaceutical injection. Diverticulum/Meckel's Imaging Tc-99m Pertechnetate (Ehigarbzok52l- pertechnetate), Administer 15mCi,IV, ONE TIME. Esophageal Reflux Imaging Lt24t-Eankrn Colloid (Abpszyvakc24r-lsscuf colloid), Administer 1mCi in 1oz whole milk. Follow with additional 7oz whole milk, Orally, ONE TIME. Ga-67 Citrate - Planar Imaging Ga-67 Citrate (Gallium-67 Citrate), Administer 5mCi, IV, ONE TIME. Ga-67 Citrate - SPECT Imaging Ga-67 Citrate (Gallium-67 Citrate), Administer 10mCi, IV, ONE TIME. Gastric Empty Imaging - Liquid Meal Zl33k-BPNG (Cqclmaunuu04o-baidibocsa-vbzlpxlr-dffkixumzrr), Administer 1mCi in 300mL tap water, Orally, ONE TIME. Gastric Empty Imaging - Solid Meal Sz19p-Qltipv Colloid (Quhhxlncuq81c-dxwwky colloid), Administer 0.5mCi in 4 oz egg beaters or in 1 package of cooked instant oatmeal, Orally, ONE TIME. GI Bleed Imaging (GI Blood Loss) Tc-99m Pertechnetate (Lzurgsyqqc66c- pertechnetate), Administer 25mCi heparinized RBCs, IV, ONE TIME. Hepatic Blood Pool Imaging Tc-99m Pertechnetate (Loovluevjd29h-rhlkobukchqca), Administer 25mCi heparinized RBCs, IV, ONE TIME. Hepatic Hemangioma Imaging Tc-99m Pertechnetate (Wyamzojgna65r-voebcbzacbsar), Administer 25mCi heparinized RBCs, IV, ONE TIME. Hepatobiliary Scan Imaging Tc-99m Mebrofenin (Ocemifolkw71m-nuqtarphue), Administer 5 mCi IV, ONE TIME *For inpatients only, if bilirubin >5mg/dL, Administer 8 mCi IV, ONE TIME *For inpatients only, if bilirubin > 8mg/dL, consult nuclear medicine physician prior to administering radiopharmaceutical Hepatobiliary Scan with Ejection Fraction Imaging Tc-99m Mebrofenin (Qqbkgqpfad08u-xlyukmdayg), Administer 5 mCi IV, ONE TIME. *For inpatients only, if bilirubin >5mg/dL, Administer 8 mCi IV, ONE TIME *For inpatients only, if bilirubin > 8mg/dL, consult nuclear medicine physician prior to administering radiopharmaceutical AND For immediate use - Sincalide (Kinevac) 0.02 mcg/kg IV, ONE TIME, diluted with NS to a total infused volume of 30 mL. Infuse via an infusion device over 30 minutes. *If Sincalide unavailable, 240mL (8oz) Ensure Plus, Orally, ONE TIME. Hepatobiliary Scan with Pre-Treatment Imaging Tc-99m Mebrofenin (Fndymngdgz24t- mebrofenin), Administer 5 mCi IV, ONE TIME. *For inpatients only, if bilirubin >5mg/dL, Administer 8 mCi IV, ONE TIME *For inpatients only, if bilirubin > 8mg/dL, consult nuclear medicine physician prior to administering radiopharmaceutical AND For immediate use - Sincalide (Kinevac) 0.01 mcg/kg IV, ONE TIME, diluted with NS to a total infused volume of 5 mL, Infuse via hand push over 5 minutes. In-111 Dual Isotope Imaging In-111 Oxine (Indium-111 Oxine), Administer at least 300uCi, up to 600uCi, heparanized WBC, IV, ONE TIME. AND Vd40p-JAR (Dpdacymkih61h-migpsinyj diphosphonate), Administer 20mCi for BMI < 35; Administer 25 mCi for BMI >= 35, IV, ONE TIME. OR In-111 Oxine (Indium-111 Oxine), Administer at least 300uCi, up to 600uCi, heparanized WBC, IV, ONETIME. AND Tc36e-Jedxvwwc Sulfur Colloid (Bxlwvdzywt07k-jtadairw sulfur colloid), Administer 8mCi, IV, ONE TIME. In-111 WBC Imaging In-111 Oxine (Indium-111 Oxine), Administer at least 300uCi, up to 600uCi, heparanized WBC, IV, ONE TIME. Liver/Spleen Imaging So00w-Acuvqk Colloid (Tjfqzquclh06x-fkezwa colloid), Administer 5mCi, IV, ONE TIME. Lung Xenon Perfusion Imaging (normal or quantitative) Tc-99m MAA (Cjastnzakh86p- macroaggregated albumin), Administer 4mCi, IV, ONE TIME. Lung Xenon Ventilation Imaging (normal or quantitative) Xe-133 (Xenon-133), Administer at least 10 mCi, up to 30 mCi, Inhalation, ONE TIME. Lung Perfusion Imaging (normal or quantitative) Tc-99m MAA (Wctcaqrrul54v- macroaggregated albumin),Administer 4mCi, IV, ONE TIME. Lung Perfusion SPECT Imaging Tc-99m MAA (Kheccyfppb90k-crrboljhdqbtpsj albumin), Administer 4mCi, IV, ONE TIME Lung Perfusion Imaging - Patient (normal or quantitative) Tc-99m MAA (Uyfxlnlrqp60r-aplvgpkzungnvnc albumin), Administer 2mCi, IV, ONE TIME. Lymphoscintigraphy - Breast Cancer, Next Day Surgery Px15e-Hrkimhpuft (Qehtsjloet46o-jyhcqerdus), Administer 2mCi in 2 divided doses of 1mCi each, intradermal, ONE TIME. Lymphoscintigraphy - Breast Cancer, Same Day Surgery Gh99c-Dcsyreylgr (Rcslljdrgm98t-hnyspjgbzy), Administer 0.5mCi in 2 divided doses of 250uCi each, intradermal, ONE TIME. Lymphoscintigraphy - Lymphedema Tt83a-Ipobjmljrm (Bnavqbdiof55w-fvbhhrpkoy), For each extremity, administer 2mCi in 2 divided doses of 1mCi each, subcutaneous, ONE TIME. Lymphoscintigraphy - Head & Neck Cancer, Next Day Surgery Uf15b-Syevuczmxv (Qdaricsbjb64b-rawudqbbfp), Administer 2mCi in 2 divided doses of 1mCi each, intradermal, ONE TIME. Lymphoscintigraphy - Head & Neck Cancer, Same Day Surgery Yt26w-Rmwgfnqsat (Zhnowsbmlq60g-wywjlkzfpk), Administer 0.5mCi in 2 divided doses of 250uCi each, intradermal, ONE TIME. Lymphoscintigraphy - Skin Cancer, Next Day Surgery We85s-Amurstkugk (Aveolnszoy93x-pgjlafincl), Administer 2mCi in 4 divided doses of 0.5mCi each, intradermal, ONE TIME. Lymphoscintigraphy - Skin Cancer, Same Day Surgery Ai27i-Pcxhwivjdb (Getyflcqko70p-xrfcwihqma), Administer 0.5mCi in 4 divided doses of 125uCi each, intradermal, ONE TIME. Lymphoscintigraphy - Skin Cancer, Small Body Area, Next Day Surgery Tc99m- Lymphoseek (Gvejuxxqbd94y-qkjcoskbte), Administer 2mCi in 2 divided doses of 1mCi each, intradermal, ONE TIME. Lymphoscintigraphy - Skin Cancer, Small Body Area, Same Day Surgery Tc99m- Lymphoseek (Ncvjlohifl33s-bhvvaqscjz), Administer 0.5mCi in 2 divided doses of 250uCi each, intradermal, ONE TIME. Lymphoscintigraphy - Vulvar Melanoma Next Day Surgery Zt79b-Zggxngovdt (Gpcjrzoaqg80e-bmfmqzdygv), Administer 2mCi in 1 dose, intradermal, ONE TIME. Lymphoscintigraphy - Vulvar Melanoma, Same Day Surgery Rv17m-Utlntdxwki (Aqmshlbpsm40y-djgwmdacdz),Administer 0.5mCi in 1 dose, intradermal, ONE TIME. MIBG Imaging I-123 MIBG (Iodine-123 metaiodobenzylguandidine), Administer 10mCi, IV, ONE TIME. AND Administer SSKI (Potassium Iodide) drops, 130mg, Orally, ONE TIME 30 minutes prior to radiopharmaceutical injection. Microsphere Mapping (Y90 Mapping) Tc-99m MAA (Fnjezzkifw45c-lbmxumwxnvzvaeb albumin), Interventional Radiologist to administer (1) 2mCi in in 2mL NS, intra- arterial via catheter, ONE TIME. OR Tc-99m MAA (Bzfjqsiunq10q-pgwziobbfhkibuz albumin), Interventional Radiologist to administer (2) 2mCi in in 2mL NS, intra-arterial via catheter, ONE TIME. MUGA/RVG Imaging Tc-99m Pertechnetate (Pmgcccijes26a-exosqwqyrmofe), Administer 25mCi heparinized RBCs, IV, ONE TIME. Myocardial Amyloid Scintigraphy (Hot PYP Scan) Sg30h-VCC (Cmnwbzjxkd90u- pyrophosphate), Administer 15mCi, IV, ONE TIME. Myocardial Dual Isotope Imaging Tl-201 (Thallium Chloride-201) AND Ys02w-Bcjtlrl (Cytilmhuiw41m-axwemqp), Administer 3mCi Tl-201for resting images, IV, ONE TIME AND Administer Hv25h-Ijurqwx (Vmgkrzheww53z-izcchbp), for stress images based on patient's weight, IV, ONE TIME. Male or Female Patients: <180lbs: 12mCi Male or Female Patients: 181-240lbs: 15mCi Female Patients 241-265lbs: 18mCi Male Patients 241-330lbs: 18mCi Female Patients >265lbs: 24mCi Male Patients >330lbs: 24mCi Myocardial Planar Imaging (for patients >= table weight limit) Cz73u-Xrdslxw (Xvjhtobvsu17r-Plhxeyj), Administer 30mCi, IV, ONE TIME for rest images, ONE TIME for stress images. Myocardial Rest Imaging - SPECT Imaging Tl-201 (Thallium Chloride-201), Administer 4mCi, IV, ONE TIME. OR Qm12i-Ckiqqnw (Odhnqrnbme18v-Njumzae), Administer 6mCi for female patients ?? 264 lb., IV, ONE TIME. OR Yy71c-Vbdanvx (Fugjranxbe91s-Jbqhysc), Administer 6mCi for male patients ?? 329 lb., IV, ONE TIME. OR Jx36r-Ywleauk (Rvxskzbuqz24l-Gokoknw), Administer 8mCi for female patients >= 265-399 lb., IV, ONE TIME. OR Io09q-Ieycnvn (Wrdlmchtta70e-Lqdtowo), Administer 8mCi for male patients >= 330- 399 lb., IV, ONETIME. OR Hh15i-Otgdovn (Ybeaknvheh30r-Bjzvcsk), Administer 10mCi for all patients >= 400- 500 lb., IV, ONETIME. Myocardial Stress - SPECT Imaging Cw38r-Uvkzuyx (Wjstyufxta25q-Ygmcnww), Administer 18mCi for female patients ?? 264 lb., IV, ONE TIME. OR Zl66l-Tisxltd (Jtdndwawyj93m-Wynzxda), Administer 18mCi for male patients ?? 329 lb., IV, ONE TIME. OR So48a-Zmhbyzq (Gkuadkoxbb41c-Ssrpaox), Administer 24mCi for female patients >= 265-399 lb., IV, ONE TIME. OR Cv04d-Ukdhnde (Twxvwzcrfc85v-Mifscuq), Administer 24mCi for male patients >= 330-399 lb., IV, ONE TIME. OR Ua20z-Pwrzklg (Rteyodlogn85b-Ndkgbzt), Administer 30mCi for all patients >= 400- 500 lb., IV, ONETIME. Myocardial Viability Imaging Tl-201 (Thallium Chloride-201), Administer 2.5mCi, IV, ONE TIME. Note: If patient >=250 lbs, TI-201 (Thallium Chloride-201), Administer 3.5mCi, IV, ONE TIME. Octreoscan In-111 Pentetreotide (Indium-111 Pentetreotide), Administer 6mCi, IV, ONE TIME. Parathyroid Imaging Ye78s-Rljzsugpy (Odagmaciid53r-ihfafipas), Administer 20mCi, IV, ONE TIME. Peritoneal Cavity Scintigraphy Tn06o-Npmnvd Colloid (Zbdnkzfdcg18u-jmaacq colloid), Administer 2mCiin 3mL NS, via peritoneal dialysis, ONE TIME. Peritoneovenous Shunt Scintigraphy Tc-99m MAA (Jppxvydiar04c-hrsnuuiormkdxtn albumin), Physician toadminister 5mCi in 3mL NS, Intraperitoneal, ONE TIME. PET/CT Axumin F-18 Axumin (Vtvjaexr27-nzxpecoozgnm), Administer 10mCi, IV, ONE TIME. PET/CT Brain Imaging (Amyvid) F18- florbetapir [Amyvid??, (E)-4-(2-(6-(2-(2-(2[F-18]- (fluoroethoxy)ethoxy)ethoxy)sgqlgabv-8-pr)vinyl)-N-methylbenzamine], Administer 10mCi, IV, ONE TIME. PET/CT Brain Imaging (FDG) F18-FDG (Fjcicmmr30-zyregojqllmogvudpi), Administer 10mCi, IV, ONE TIME. PET/CT Dotatate Imaging Ga-68 Dotatate (Gallium-68 Dotatate), Administer 5.4mCi, IV, ONE TIME. PET/CT Dotatate Imaging Cu-64 Detectnet (Copper-64 Dotatate), Administer 4mCi, IV, ONE TIME. PET/CT Myocardial Scan (Sarcoidosis or Viability) F18-FDG (Oqflctcr01- fluorodeoxyglucose), Administer 0.11mCi/kg with at least 8mCi, up to 17mCi, IV, ONE TIME. PET/CT Limited, Standard, or Whole-Body Oncology Imaging F18-FDG (Uhajevxr35- fluorodeoxyglucose), Administer 0.11mCi/kg, with at least 8mCi, up to 17mCi, IV, ONE TIME. PET/CT Pylarify Imaging C28-Injbzsnx (Ymhutlk52-Lyqqkrkhdnaxf), Administer 9mCi, IV, ONE TIME. Renal Scintigraphy (JENNIFER-Inhibitor Renal Scan) Lg01p-AIO1 (Gkockolklf53u- mercaptoacetyltriglcine), Administer 5mCi, IV, ONE TIME. AND Administer Enalaprilat (Vasotec) 2.5mg, IV, ONE TIME. Dilute to 5mL total volume with normal salineand infuse via hand push injection over 5 minutes. OR Administer Captopril, 50mg capsule crushed and dissolved in 150mL tap water, Orally, ONE TIME. Renal Scintigraphy (Cortical Imaging) Kv70v-QUNQ (Ennojtjvzr18o- dimercaptosuccinic acid), Administer 5mCi, IV, ONE TIME. Renal Scintigraphy (Diuretic Renal Scan) Pm10l-PRAR (Qaydhduuyw97a-jlbkjbfutg-mxgovrvb-tjjucbosesrs), Administer 5mCi, IV, ONE TIME. AND Administer Lasix (furosemide) 40mg, IV push over 2 minutes, ONE TIME. OR Jx96e-QAY2 (Knlpnipcdv04b-olmwhxrlvhdbnohuyvqfvoo), Administer 5mCi, IV, ONE TIME. AND Administer Lasix (furosemide), 40mg, IV push over 2 minutes, ONE TIME. Renal Scintigraphy (Flow and Function Scan) Jz31w-JDBB (Iieuooaaaj62x-fyyeysfgrd-wkcahufj-vpubqglokuds), Administer 5mCi, IV, ONE TIME. OR Kv31w-UTB5 (Bjdpfadayd86x-nfjlcqhxwngvpguvwrwxahs), Administer 5mCi, IV, ONE TIME. Renal Scintigraphy (Renal Transplant Scan) Br85i-TIEK (Lajphobiei59q-yihdmlulap-ooxlidkd-tsbfwwfmihbc), Administer 5mCi, IV, ONE TIME. OR We69m-XCC0 (Kujvopnhmr03d-pafxmjgouadpjsbacuzazjm), Administer 5mCi, IV, ONE TIME. Salivary Imaging Tc-99m Pertechnetate (Jsinweomon57c-tvewsteimbkyg), Administer 5mCi, Orally, ONE TIME. Shunt Patency Imaging (CSF Shunt Imaging) Vk30r-DGZD (Erfyqwnvwb03a-emqhwatqky-nhxjplcp-bitmkujzzafn), Neurosurgeon or neurosurgeon's PA to administer 0.5mCi, intra-shunt reservoir, ONE TIME. Splenic Imaging Tc-99m Pertechnetate (Kvvrfddsdq81q-rxnxdbxdpzgbc), Administer 6mCi heparinized, heat damaged RBCs, IV, ONE TIME. Ff22h-UFH Imaging Ft64z-[place] (Jzejwsxhgv76y-Srhbdju), Administer 15mCi heparinized WBC, IV, ONE TIME. Thyrogen Injection Thyrogen (thyrotopin nitish), Administer 0.9mg, deep IM, every 24 hours for 2 doses. Thyroid Imaging Tc-99m Pertechnetate (Ptorxjmczo82i-askvnjdndoywq), Administer 10mCi, IV, ONE TIME. OR I-123 Na Iodide (Iodide-123 Na Iodide), Administer 200 uCi capsule, Orally, ONE TIME. Thyroid Scan & Uptake I-123 Na Iodide (Iodide-123 Na Iodide), Administer 220 uCi capsule, Orally, ONE TIME. Thyroid Uptake I-123 Na Iodide (Iodide-123 Na Iodide), Administer 200 uCi capsule, Orally, ONE TIME. OR I-131 Na Iodide (Iodide-131 Na Iodide), Administer at least 5 uCi, up to 25 uCi, Orally, ONE TIME. Whole Body I-123 Imaging I-123 Na Iodide (Iodide-123 Na Iodide), Administer 2.5 mCi capsule, Orally, ONE TIME. Whole Body I-131 Imaging I-131 Na Iodide (Iodide-131 Na Iodide), Administer 3 mCi capsule or solution, Orally, ONE TIME. Xofigo Treatment Ra-223 dichloride, Administer 1.49 mCi/kg, IV, ONE TIME. Pediatric Procedures & Dosages: Note: Radiopharmaceuticals dosages with a range are determined by ocean transportation intermediary calibration Note: In acute Tc99m shortages, radiopharmaceutical dosages may be decreased with approval and documentation within department from medical program specialist/AU. Note: Hybrid SPECT/CT imaging used as appropriate for exam and/or as directed by Radiologist PROCEDURE DOSAGE Bone Marrow Imaging Ih09j-Lqsoskck Sulfur Colloid (Rweloiptjv32d-dgfmxbgt sulfur colloid), Administer 0.14mCi/kg with at least 1mCi, up to 8mCi, IV, ONE TIME. Bone Scan Imaging (Whole Body, Limited, 3-Phase, or SPECT) Jw62v-HXL (Iduxwkuhig97f-qsrdgoell diphosphonate), Administer 0.25mCi/kg with at least 1mCi, up to 25mCi, IV, ONE TIME. OR Ib38u-TSV (Bjymknhflv59i-wdqitadtcirxagkb diphosphonate), Administer 0.25mCi/kg with at least 1mCi,up to 25mCi, IV, ONE TIME Brain Imaging Tb48w-IGMP (Megmnxoazt82z-eudptsqlke-qfelqqwr-hzzngmwoxjqx), Administer 0.3mCi/kg with at least 5mCi, up to 20mCi, IV, ONE TIME. Brain SPECT Imaging Nb44u-WCIKJ (Ceretec) (Rraiudlanh54i-qlxnmbgajoanlekfaef amine oxime), Administer 0.3mCi/kg with at least 3mCi, up to 20mCi, IV, ONE TIME. C14 Urea Breath Test (PY Test) Q81-Ihyx (Carbon-14 Urea), Administer 1uCi capsule, Orally, ONE TIME. Cisternogram Imaging In-111 DTPA (Indium-111 sqxomljdcv-utfcemoj-noqvgcwrcekz), Neuroradiologist toadminister 0.07mCi/kg with at least 0.1mCi, up to 0.5mCi, Intrathecally, ONE TIME. Cystogram Imaging Tc-99m Pertechnetate (Avdkryabuj52t-vaqyigzxhdtya) Administer 1mCi, intra-roman catheter, ONE TIME AND Administer NS per calculated expected bladder volume, intra-roman catheter, ONE TIME. Diverticulum/Meckel's Imaging Tc-99m Pertechnetate (Sdawtiiuew87q- pertechnetate), Administer 0.05mCi/kg with at least 0.25mCi, up to 15mCi, IV, ONE TIME. Esophageal Reflux Imaging - <1yoa Ni17k-Dlobay Colloid (Btcsvgrdet61t-ixzvxe colloid), Administer 0.1mCi for patients <3.5lb., Orally, ONE TIME. OR Administer 0.2mCi for patients 3.5-6.5lb., Orally, ONE TIME. OR Administer 0.3mCi for patients >6.5lb., Orally, ONE TIME. *For all administrations, determine amount of formula or breast milk patient consumes in 1 hour by dividing their normal feed amount by 4. Then, take this calculated amount and divide into 2 so that you can tag ?? with the radiopharmaceutical and feed the remaining ?? 'cold'; feed the radioac tive labeled formula/milk and then 'cold' formula/milk over a 10-minute total period of time. Esophageal Reflux Imaging - >1yoa Ia61o-Mkueke Colloid (Yltiewiedm07i-yrzpgz colloid), Administer 0.5mCi in 1 oz whole milk, Orally, ONE TIME. Follow with 7 oz whole milk. Ga-67 Citrate - Planar Imaging Ga-67 Citrate (Gallium-67 Citrate), Administer 0.07mCi/kg with at least 0.5mCi, up to 5mCi, IV, ONETIME. Ga-67 Citrate - SPECT Imaging Ga-67 Citrate (Gallium-67 Citrate), Administer 0.14mCi/kg with at least 1mCi, up to 10mCi, IV, ONE TIME. Gastric Empty Imaging - Liquid Meal Wh07h-Eseiev Colloid (Qrgtxegmlo86b-metpmh colloid), Administer7 uCi/kg with at least 250uCi, up to 500uCi, Orally, ONE TIME. *For all administrations, determine amount of formula or breast milk patient consumes in 1 hour by dividing their normal feed amount by 4. Then, take this calculated amount and divide into 2 so that you can tag ?? with the radiopharmaceutical and feed the remaining ?? 'cold'; feed the radioac tive labeled formula/milk and then 'cold' formula/milk over a 10-minute total period of time.OR Uo72p-CBDX (Kqhkdtkcty58o-kftvefctke-cozdbzxm-loixqpnggwg), Administer 1mCi in 300mL tap water, Orally, ONE TIME. *Follow Hr31t-JVHO dosing if the pediatric patient is not an infant and consumes water. Gastric Empty Imaging - Solid Meal Xl45u-Wyhncn Colloid (Ebswbnsjbb27m-nnevll colloid), Administer 7uCi/kg with at least 250uCi, up to 500uCi in 4 oz eggbeaters or in 1 package of cooked instant oatmeal, Orally, ONE TIME. GI Bleed Imaging (GI Blood Loss) Tc-99m Pertechnetate (Eppedkhrsn93z- pertechnetate), Administer 0.32mCi heparinized RBCs with at least 2mCi, up to 25mCi, IV, ONE TIME. Hepatic Blood Pool Imaging Tc-99m Pertechnetate (Namanwlckw22t-zojqghobwlpre), Administer 0.32mCi heparinized RBCs with at least 2mCi, up to 25mCi, IV, ONE TIME. Hepatic Hemangioma Imaging Tc-99m Pertechnetate (Gsyscjgydl92a-gngzxklazuhbk), Administer 0.32mCi heparinized RBCs with at least 2mCi, up to 25mCi, IV, ONE TIME. Hepatobiliary Scan Imaging Tc-99m Mebrofenin (Jcbrwxfxux17m-jimdgpacwn), Administer 0.05mCi/kg withat least 0.5mCi, up to 5mCi, IV, ONE TIME *For inpatients only, if bilirubin >5mg/dL, Administer 0.08mCi/kg with at least 1mCi, up to 8mCi, IV, ONE TIME *For inpatients only, if bilirubin > 8mg/dL, consult nuclear medicine physician prior to administering radiopharmaceutical Hepatobiliary Scan Imaging for in Jaundice Tc-99m Mebrofenin (Woeyawdkqm83u-nvisvecadi), Administer 0.08mCi/kg with at least 1mCi, up to 8mCi, IV, ONE TIME AND Administer Phenobarbital 5mg/kg/day (may be administered in 2 divided doses) for 5 days prior to imaging, IV, ONE TIME PER DAY. Hepatobiliary Scan with Ejection Fraction Imaging Tc-99m Mebrofenin (Ciqqvszlgy69g-xgaviwgcbo), Administer 0.05mCi/kg with a at least 0.5mCi, up to 5mCi IV, ONE TIME *For inpatients only, if bilirubin >5mg/dL, Administer 0.08mCi/kg with at least 1mCi, up to 8mCi, IV, ONE TIME *For inpatients only, if bilirubin > 8mg/dL, consult nuclear medicine physician prior to administering radiopharmaceutical AND For immediate use - Sincalide (Kinevac) 0.02 mcg/kg IV, ONE TIME, diluted with NS to a total infused volume of 30 mLs. Infuse via an infusion device over 30 minutes. *If Sincalide unavailable, 3.5ml/kg, up to 240mL (8oz) Ensure Plus, Orally, ONE TIME. Hepatobiliary Scan with Pre-Treatment Imaging Tc-99m Mebrofenin (Nmqtydiogr27w- mebrofenin), Administer 0.05mCi/kg with a at least 0.5mCi, up to 5mCi IV, ONE TIME *For inpatients only, if bilirubin >5mg/dL, Administer 0.08mCi/kg with at least 1mCi, up to 8mCi, IV, ONE TIME *For inpatients only, if bilirubin > 8mg/dL, consult nuclear medicine physician prior to administering radiopharmaceutical AND For immediate use - Sincalide (Kinevac) 0.01 mcg/kg IV, ONE TIME, diluted with NS to a total infused volume of 5 mL, Infuse via hand push over 5 minutes. In-111 Dual Isotope Imaging In-111 Oxine (Indium-111 Oxine), Administer 5uCi/kg with at least 300uCi, up to 500uCi, heparanized WBC, IV, ONE TIME. AND Hy31x-HDN (Htuotklyay78j-tifayuglt diphosphonate), Administer 0.25mCi/kg with at least 1mCi, up to 20mCi, IV, ONE TIME. OR In-111 Oxine (Indium-111 Oxine), Administer 5uCi/kg with at least 300uCi, up to 500uCi, heparanizedWBC, IV, ONE TIME. AND Ux23k-Cwigkfdh Sulfur Colloid (Arpvgawcie53f-ztkgcdyk sulfur colloid), Administer 0.14mCi/kg with at least 1mCi, up to 8mCi, IV, ONE TIME. In-111 WBC Imaging In-111 Oxine (Indium-111 Oxine), Administer 5uCi/kg with at least 300uCi, up to 500uCi, heparanized WBC, IV, ONE TIME. Liver/Spleen Imaging Yu54p-Fbzmac Colloid (Oqjvifydbb41r-ycwvyv colloid), Administer 0.05mCi/kg with at least 0.5mCi, up to 5mCi, IV, ONE TIME. Lung Xenon Perfusion Imaging (normal or quantitative) Tc-99m MAA (Mrgvxbamsl75u- macroaggregated albumin), Administer 0.03mCi/kg, with at least 0.4mCi, up to 4mCi IV, ONE TIME. Lung Xenon Ventilation Imaging (normal or quantitative) Xe-133 (Xenon-133), Administer 10 mCi, inhalation, ONE TIME. Lung Perfusion Imaging (normal or quantitative) Tc-99m MAA (Cpgpywcwir06f- macroaggregated albumin),Administer 0.03mCi/kg, with at least 0.4mCi, up to 4mCi IV, ONE TIME. Lung Perfusion Imaging - Patient (normal or quantitative) Tc-99m MAA (Atwbohdnaj15c-pxfnzuxplvfenbg albumin), Administer 0.03mCi/kg, with at least 0.4mCi, up to 2mCi IV, ONE TIME. MIBG Imaging I-123 MIBG (Iodine-123 metaiodobenzylguandidine), Administer 0.14mCi/kg with at least 1mCi, up to 10mCi, IV, ONE TIME AND Administer SSKI (Potassium Iodide) drops 30 minutes prior to radiopharmaceutical injection. * to 1 month: 16mg, Orally, ONE TIME. * 1 month to 3 years of age: 32mg, Orally, ONE TIME. * Greater than 3 years to 17 years of age: 65mg, Orally, ONE TIME. MUGA/RVG Imaging Tc-99m Pertechnetate (Sqidhtlyrc57w-twjxkntnjqsrg), Administer 0.32mCi/kg heparinized RBCs with at least 2mCi, up to 25mCi, IV, ONE TIME. Myocardial Amyloid Scintigraphy (Hot PYP Scan) Co85h-EXN (Eafumygkfk52g- pyrophosphate), Administer 0.28mCi/kg, with at least 2.5mCi, up to 15mCi IV, ONE TIME. Myocardial Rest Imaging - SPECT Imaging Oa76c-Fpclcrl (Nhfxxgpgch32o-Ezngwnl), Administer 0.15mCi/kg, with at least 2mCi, up to 8mCi IV, ONE TIME. Myocardial Stress Imaging - SPECT Imaging Tv76q-Pryrumn (Xqvnzxzfpe36d-Myotsdi), Administer 0.45mCi/kg, with at least 6mCi, up to 24mCi IV, ONE TIME. Octreoscan In-111 Pentetreotide (Indium-111 Pentetreotide), Administer 0.08mCi/kg with at least 1mCi, up to 6mCi, IV, ONE TIME. Parathyroid Imaging Pb56s-Dfzjdminm (Dqfxargbxk78f-tdebfmuop), Administer 0.25mCi/kg, with at xxeaq7pQf, up to 20mCi IV, ONE TIME. Peritoneal Cavity Scintigraphy Me09d-Gryxwh Colloid (Folilmbjip46q-abnosg colloid), Administer 0.07mCi/kg in 2mL NS with at least 1mCi, up to 2mCi, via peritoneal dialysis, ONE TIME. Peritoneovenous Shunt Scintigraphy Tc-99m MAA (Egivijveuw32w-xadlonmyvvdjeid albumin), Physician toadminister 0.07mCi/kg with at least 1mCi, up to 5mCi in 2mL NS, Intraperitoneal, ONE TIME. PET/CT Brain Imaging (FDG) F18-FDG (Xmyhyebz44-dutjsxcustztuwnfhw), Administer 0.10mCi/kg with at least 2mCi, up to 10mCi, IV, ONE TIME. PET/CT Limited, Standard, or Whole-Body Oncology Imaging F18-FDG (Xrqklcpp87- fluorodeoxyglucose), Administer 0.11mCi/kg with at least 2mCi, up to 10mCi, IV, ONE TIME. PET/CT Dotatate Imaging Ga-68 Dotatate (Gallium-68 Dotatate), Administer 0.054mCi/kg up to 5.4mCi, IV, ONE TIME. (Minimum dose determined by AU). Renal Scintigraphy (JENNIFER-Inhibitor Renal Scan) Qg26y-NMQ3 (Irnirxoyux24d-kjtomepiadaayagnekohsvt), Administer 0.1mCi/kg with at least 1mCi, up to 5mCi, IV, ONE TIME. AND Administer Enalaprilat (Vasotec) 0.04mg/kg with a maximum dose of 2.5mg, IV, ONE TIME. Dilute to 5mL total volume with normal saline and infuse via hand push over 5 minutes. Renal Scintigraphy (Cortical Imaging) Wm28e-CONA (Evioctbsfe11q-payrurxwejbkbxsewv acid), Administer 0.05mCi/kg with at least 0.5mCi, up to 5mCi, IV, ONE TIME. Renal Scintigraphy (Diuretic Renal Scan) Mv43k-LKHB (Esiyzpqoji79n-dxdvotumkv-wijygrkf-onxwgtoiseze), Administer 0.2mCi/kg with at least 2mCi, up to 5mCi, IV, ONE TIME. AND Administer Lasix (furosemide), 1mg/kg, up to 40mg, IV push over 2 minutes, ONE TIME. A reduced dosage of 0.5mg/kg may be used per direction of nuclear medicine physician. OR Mq90u-VIR7 (Tsorrygqno88z-drajzneooiqkmzkssqdtvky), Administer 0.1mCi/kg with at least 1mCi, up to 5mCi, IV, ONE TIME. AND Administer Lasix (furosemide), 1mg/kg, up to 40mg, IV push over 2 minutes, ONE TIME. A reduced dosage of 0.5mg/kg may be used per direction of the nuclear medicine physician. Renal Scintigraphy (Flow and Function Scan) Rr61e-EUZZ (Agvmthmnzs71w-hukdctujxy-pzamuaxg-ejdewhjkvpfs), Administer 0.2mCi/kg with at least 2mCi, up to 5mCi OR Tj86q-BDV6 (Uggvhdxiup89r-jkuylkrfygoofvyqxrjaxmr), Administer 0.1mCi/kg with at least 1mCi, up to 5mCi, IV, ONE TIME. Renal Scintigraphy (Renal Transplant Scan) Nh67u-NHEI (Wwckuhdntu11m-mhwuzrsbpa-ffdtaylx-qqnnevyhfmoz), Administer 0.2mCi/kg with at least 2mCi, up to 5mCi OR Hj64w-JIG3 (Egjtbsbfmw82l-skenizujeilryosnsbnhjrx), Administer 0.1mCi/kg with at least 1mCi, up to 5mCi, IV, ONE TIME. Salivary Imaging Tc-99m Pertechnetate (Vjktdrxzou34y-bomtjlolvkaol), Administer 0.05mCi/kg with at least 0.25mCi, up to 5mCi, Orally, ONE TIME. Shunt Patency Imaging (CSF Shunt Imaging) Km60n-FXUL (Ueobtbedhi86q-lyyliwlwux-mqtuebyt-vnqhwiwajfjc), Neurosurgeon or neurosurgeon's PA to administer 0.01mCi/kg with at least 0.4mCi, up to 0.5mCi, intra-shunt reservoir, ONE TIME. Splenic Imaging Tc-99m Pertechnetate (Nychlxgbri30y-atmsryhxxcltk), Administer 0.03mCi/kg with at least 0.5mCi, up to 6mCi heparinized, heat damaged RBCs, IV, ONE TIME. Qw14v-TZD Imaging Lo63r-Iaxalzc (Exbvsgkbsm11v-Mvglrbi), Administer 0.2mCi/kg with at least 2mCi, up to 15mCi, heparinized WBC, IV, ONE TIME. Thyroid Imaging Tc-99m Pertechnetate (Hrenchawdf75r-myghiaioggliu), Administer 0.07mCi/kg with at least 1mCi, up to 10mCi, IV, ONE TIME. Thyroid Scan & Uptake I-123 Na Iodide (Iodide-123 Na Iodide), 110uCi, Orally, ONE TIME. Thyroid Uptake I-123 Na Iodide (Iodide-123 Na Iodide), Administer dosage per treating AU & fillout special prescription form, Orally, ONE TIME. OR I-131 Na Iodide (Iodide-131 Na Iodide), Administer dosage per treating AU & fill out special prescription form, Orally, ONE TIME. Whole Body I-131 Imaging I-131 Na Iodide (Iodide-131 Na Iodide), Administer 0.07uCi/kg, up to 3mCi capsule or solution (minimum dose per treating AU), Orally, ONE TIME. * Result Encounter Note - Kiel Vasquez MD - 10/03/2023 12:45 PM CDT Stress test shows she might have a blockage in an artery in heart Recommend cath Thanks JG documented in this encounter Plan of Treatment Upcoming Encounters Date Type Department Care Team (Late st Contact Info) Description 2024 11:00 AM BEN DAY ARTIST Appointment [facility] [address] [place] [phone] 07/21/2024 9:45 AM BEN DAY ARTIST Appointment [facility] Vertical Punch Operator [address] [place] [phone] Kiel Vasquez MD [address] [facility] [address] [place] [address] 07/21/2024 9:53 AM BEN DAY ARTIST Hospital Encounter [facility] Vertical Punch Operator [address] [place] [phone] Kiel Vasquez MD [address] [facility] [address] [place] [phone] Paroxysmal A-fib 07/21/2024 9:53 AM BEN DAY ARTIST - 07/21/2024 11:46 AM BEN DAY ARTIST Surgery [facility] Vertical Punch Operator [address] [place] [phone] Kiel Vasquez MD [address] [facility] [address] [place] [address] Left atrial appendage closure percutaneous 07/28/2024 8:30 AM BEN DAY ARTIST Office Visit [facility] Oncology and Hematology - [place] [address] [place] [phone] Nahid Hickman MD [address] [address] 09/09/2024 1:00 PM CDT Office Visit [facility] Heart and Vascular At [facility] [address] [facility] [address] [place] [address] Kiel Vasquez MD [address] [facility] [address] [place] [address] 12/16/2024 11:00 AM CDT Office Visit [facility] HEART AND VASCULAR EP AT [facility] [address] [facility] [address] [place] [address] Demetrius Bowling DNP [address] [facility] [address] [place] [address] 02/05/2025 10:45 AM CDT Telephone Check Up [facility] Heart and Vascular At [facility] [address] [facility] [address] [place] [address] 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, CAT [address] [place] [address] documented as of this encounter Procedures Procedure Name Priority Date/Time Associated Diagnosis Comments NM MYOCARD PERF IMAG SPECT MULT Routine 10/03/2023 3:44 PM CDT Chronic diastolic congestive heart failure New onset atrial fibrillation Benign hypertension HM EJECTION FRACTION Routine 10/03/2023 3:44 PM CDT documented in this encounter Results * NM MYOCARD PERF IMAG SPECT MULT (10/03/2023 3:44 PM CDT) 10/03/2023 3:45 PM CDT Impressions INTERFACE SYSTEM - 10/03/2023 3:56 PM CDT IMPRESSION: ?? 1) Stress EKG response was positive for [...] and small apical perfusion abnormality are new ? Recommendations: Clinical correlation ??is recommended. ? Narrative INTERFACE SYSTEM - 10/03/2023 3:56 PM CDT ? Procedure Type: One Day Myoview Regadenoson Pharmacologic Stress Test ? Date of ??Procedure: 10/03/2023 3:44 PM ? Clinical Indication: This 78 years old Female with a clinical history of paroxysmal atrial fibrillation, hypertension, family history of ischemic heart disease, and a former smoker is undergoing an evaluation for coronary artery disease via a pharmacologic stress test due to shortness of breath, chest and jaw discomfort. Height: 5 feet 3 inches; Weight: 137 pounds Medications:See List ?? Pharmacologic Stress Procedure: The patient performed a pharmacologic stress test using 0.4 mg regadenoson IVP over 10 seconds without low level exercise. ??The heart rate was 64 bpm at baseline and increased to 102 bpm. ??The blood pressure was 208/78 mmHg at baseline and 172/68 mmHg during infusion, demonstrating a normal response to regadenoson. The patient felt chest and jaw tightness and a headache during the procedure. ?? EKG: The baseline electrocardiogram showed sinus rhythm with diffuse nonspecific T wave abnormalities at rest. The stress electrocardiogram showed ischemic ST segment changes with up to 2.[address] segment depression in the inferolateral leads. The electrocardiogram changes show a ischemic response to regadenoson. ?? Nuclear Imaging Protocol: Myocardial perfusion imaging was performed at rest approximately 30 minutes following the intravenous injection of 6.6 mCi TC99m Myoview. ?? Immediately after regadenoson infusion, the patient was injected intravenously with ??21.4 mCi TC99m Myoview. ??Gated post - stress tomographic imaging was performed approximately 60 minutes later in same manner. SPECT reconstruction was performed in the short, vertical long and horizontal axis views in both resting and gated image sets. ?? Post-stress prone images were also obtained in the short, vertical long, and horizontal axis views. Findings: The overall quality of the study is fair. ??Rotating planar images reveal no motion artifact. ??The left ventricular size is normal. ?? Post-stress SPECT myocardial perfusion images reveals abnormal radionucleotide uptake involving the anterior and apical segments seen predominantly on the stress images. Prone images demonstrated significant improvement on the anterior segments however there is a small persistent apical defect.The rest images reveal small reversibility of the apical segment. There is significant gut activity which decreases the reliability of the perfusion imaging. Gated SPECT imaging demonstrates normal wall motion in all regions, and a calculated left ventricular ejection fraction estimated to be 73%. Procedure Note Monroe Howell MD - 10/03/2023 Procedure Type: One Day Myoview Regadenoson Pharmacologic Stress Test Date of Procedure: 10/03/2023 3:44 PM Clinical Indication: This 78 years old Female with a clinical history of paroxysmal atrial fibrillation, hypertension, family history of ischemic heart disease, and a former smoker is undergoing an evaluation for coronary artery disease via a pharmacologic stress test due to shortness of breath, chest and jaw discomfort. Height: 5 feet 3 inches; Weight: 137 pounds Medications:See List Pharmacologic Stress Procedure: The patient performed a pharmacologic stress test using 0.4 mg regadenoson IVP over 10 seconds without low level exercise. The heart rate was 64 bpm at baseline and increased to 102 bpm. The blood pressure was 208/78 mmHg at baseline and 172/68 mmHg during infusion, demonstrating a normal response to regadenoson. The patient felt chest and jaw tightness and a headache during the procedure. EKG: The baseline electrocardiogram showed sinus rhythm with diffuse nonspecific T wave abnormalities at rest. The stress electrocardiogram showed ischemic ST segment changes with up to 2.[address] segment depression in the inferolateral leads. The electrocardiogram changes show a ischemic response to regadenoson. Nuclear Imaging Protocol: Myocardial perfusion imaging was performed at rest approximately 30 minutes following the intravenous injection of 6.6 mCi TC99m Myoview. Immediately after regadenoson infusion, the patient was injected intravenously with 21.4 mCi TC99m Myoview. Gated post - stress tomographic imaging was performed approximately 60 minutes later in same manner. SPECT reconstruction was performed in the short, vertical long and horizontal axis views in both resting and gated image sets. Post-stress prone images were also obtained in the short, vertical long, and horizontal axis views. Findings: The overall quality of the study is fair. Rotating planar images reveal no motion artifact. The left ventricular size is normal. Post-stress SPECT myocardial perfusion images reveals abnormal radionucleotide uptake involving the anterior and apical segments seen predominantly on the stress images. Prone images demonstrated significant improvement on the anterior segments however there is a small persistent apical defect.The rest images reveal small reversibility of the apical segment. There is significant gut activity which decreases the reliability of the perfusion imaging. Gated SPECT imaging demonstrates normal wall motion in all regions, and a calculated left ventricular ejection fraction estimated to be 73%. IMPRESSION: 1) Stress EKG response was positive [...] and small apical perfusion abnormality are new Recommendations: Clinical correlation is recommended. Kiel Vasquez MD NM ORDERABLES INTERFACE SYSTEM Refer to clinic/hospital department * (ABNORMAL) HM EJECTION FRACTION (10/03/2023 3:44 PM CDT) [facility] EJECTION FRACTION 73(A) 50 - 65 % Historical Provider HEALTH MAINTENANCE documented in this encounter Visit Diagnoses Diagnosis [...] MAR Action Action Date Dose Rate Site sodium chloride flush injection 10 mL 10 mL, IV, ONE TIME ONLY, 1 dose, On Sun10/03/23 at 1245, Routine Given 10/03/2023 12:45 PM CDT 10 mL documented in this encounter Care Teams Chemical Lab Supervisor Relationship Specialty Start Date End Date Aliza Bain MD [address] [place] [address] PCP - General Family Practice 11/22/21 documented as of this encounter
--- OUTSIDE RECORDS SUMMARY | 2024-07-01 00:41 | XMS_ITS | Encounter Summary ---
Author Organization [facility] Address [address] [place] [address] Care Team Providers Care Can Crimper Name Role Phone Aliza Bain MD Primary Care Provider Reason for Visit * Reason Onset Date Comments Erroneous encounter-disregard 10/19/2023 Encounter Details Date Type Department Care Team (Late st Contact Info) Description 10/19/2023 Refill [facility] Cardiovas and Thor Surg at [facility] [address] [facility] [address] [place] [address] Ivone Barbosa MD [address] [facility] [address] [place] [address] Social History Tobacco Use Types [...] any clubs o r organizations such as jewish groups, unions, fraternal or athletic groups, or [...] st Contact Info) Description 2024 11:00 AM PROPOSAL REVIEW ANALYST Appointment [facility] [address] [place] [address] 07/21/2024 9:45 AM PROPOSAL REVIEW ANALYST Appointment [facility] Ceo [address] [place] [address] Kiel Vasquez MD [address] [place] [address] 07/21/2024 9:53 AM PROPOSAL REVIEW ANALYST Hospital Encounter [facility] [address] [place] [address] Kiel Vasquez MD [address] [facility] 2014 [place] [address] Paroxysmal A-fib 07/21/2024 9:53 AM PROPOSAL REVIEW ANALYST - 07/21/2024 11:46 AM PROPOSAL REVIEW ANALYST Surgery [facility] [address] [place] [address] Kiel Vasquez MD [address] [facility] [address] [place] [address] Left atrial appendage closure percutaneous 07/28/2024 8:30 AM PROPOSAL REVIEW ANALYST Office Visit [facility] Oncology and Hematology - [place] [address] [phone] Nahid Hickman MD [address] [facility] [address] [place] [address] 09/09/2024 1:00 PM CDT Office Visit [facility] Heart and Vascular At [address] [place] [address] Kiel Vasquez MD [facility] [address] [facility] [address] [place] [address] 12/16/2024 11:00 AM CDT Office Visit [facility] HEART AND VASCULAR EP AT [address] [place] [address] Demetrius Bowling DNP [address] [place] [address] 2014 [place] [address] 02/05/2025 10:45 AM CDT Telephone Check Up [facility] Heart and Vascular At [address] [place] [address] 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, TREE FELLER OPERATOR [address] [place] [address] documented as of this encounter Visit Diagnoses Not on filedocumented in this encounter Care Teams Can Crimper Relationship Specialty Start Date End Date Aliza Bain MD [address] [place] [address] PCP - General Family Practice 11/22/21 documented as of this encounter
--- OUTSIDE RECORDS SUMMARY | 2024-07-01 00:41 | XMS_ITS | Encounter Summary ---
Author Organization [place] Address [address] [facility] Attn: Epic Prelude ADT ST[place] [address] Care Team Providers Care Groover Operator Name Role Phone Aliza Bain MD Primary Care Provider Encounter Details Date Type Department Care Team (Latest Contact Info) Description 10/19/2023 Travel Social History Tobacco Use Types Packs/Day [...] any clubs o r organizations such as moravian groups, unions, fraternal or athletic groups, or [...] Contact Info) Description 2024 11:00 AM DIRECTOR OF PEDIATRIC REHABILITATION Appointment [facility] [address] [place] [address] 07/21/2024 9:45 AM DIRECTOR OF PEDIATRIC REHABILITATION Appointment [facility] Nut Chopper [address] [place] [phone] Kiel Vasquez MD [address] [facility] 2014 [place] [address] 07/21/2024 9:53 AM DIRECTOR OF PEDIATRIC REHABILITATION Hospital Encounter [facility] [employer] [address] [place] [address] Kiel Vasquez MD [address] [place] [address] Jesse Lackey-shirley 07/21/2024 9:53 AM DIRECTOR OF PEDIATRIC REHABILITATION - 07/21/2024 11:46 AM DIRECTOR OF PEDIATRIC REHABILITATION Surgery [facility] [employer] [address] [place] [address] Kiel Vasquez MD [address] [place] [address] [address] [place] [address] Left atrial appendage closure percutaneous 07/28/2024 8:30 AM DIRECTOR OF PEDIATRIC REHABILITATION Office Visit [facility] Oncology and Hematology - [place] [address] [facility] [address] [place] [address] Nahid Hickman MD [address] [facility] [address] [place] [address] 09/09/2024 1:00 PM CDT Office Visit [facility] Heart and Vascular At [address] [place] [address] Kiel Vasquez MD [address] [place] [address] [address] [place] [address] 12/16/2024 11:00 AM CDT Office Visit [facility] HEART AND VASCULAR EP AT [address] [place] [address] Demetrius Bowling DNP [address] [place] [address] 2014 [place] [address] 02/05/2025 10:45 AM CDT Telephone Check Up [facility] Heart and Vascular At [address] [place] [address] 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 FNP [address] [place] [phone] documented as of this encounter Visit Diagnoses Not on filedocumented in this encounter Care Teams Groover Operator Relationship Specialty Start Date End Date Aliza Bain MD [address] [place] [address] PCP - General Family Practice 11/22/21 documented as of this encounter
--- OUTSIDE RECORDS SUMMARY | 2024-07-01 00:42 | XMS_ITS | Encounter Summary ---
Author Organization [facility] [employer] [facility] Address [address] [place] [address] Care Team Providers Care Oven Drier Tender Name Role Phone Aliza Bain MD Primary Care Provider Encounter Details Date Type Department Care Team (Late st Contact Info) Description 06/02/2022 Orders Only [facility] Oncology and Hematology - [place] [address] [place] [address] Jennifer Fong MGUS (monoclonal gammopathy of unknown significance) Social History Tobacco Use Types Packs/Day Years [...] any clubs o r organizations such as temple groups, unions, fraternal or athletic groups, or [...] suspected to have Coronavirus/COVID-19? No / Unsure 06/05/2022 9:47 AM INVESTMENT BANKING ASSOCIATE documented as of this encounter Plan of Treatment Upcoming Encounters Date Type Department Care Team (Late st Contact Info) Description 2024 11:00 AM INVESTMENT BANKING ASSOCIATE Appointment [facility] [address] [place] [phone] 07/21/2024 9:45 AM INVESTMENT BANKING ASSOCIATE Appointment [facility] [address] [place] [address] Kiel Vasquez MD [address] [place] [address] 07/21/2024 9:53 AM INVESTMENT BANKING ASSOCIATE Hospital Encounter [facility] [address] [place] [address] Kiel Vasquez MD [address] [place] [address] Paroxysmal A-fib 07/21/2024 9:53 AM INVESTMENT BANKING ASSOCIATE - 07/21/2024 11:46 AM INVESTMENT BANKING ASSOCIATE Surgery [facility] [address] [place] [phone] Kiel Vasquez MD [address] [place] [address] 2014 [place] [phone] Left atrial appendage closure percutaneous 07/28/2024 8:30 AM INVESTMENT BANKING ASSOCIATE Office Visit [facility] Oncology and Hematology - [place] [address] [facility] [address] [place] [address] Nahid Hickman MD 2227 [facility] [address] [place] [address] 09/09/2024 1:00 PM CDT Office Visit [facility] Heart and Vascular At [address] 2014 [place] [address] Kiel Vasquez MD [address] [place] [address] 2014 [place] [phone] 12/16/2024 11:00 AM CDT Office Visit [facility] HEART AND VASCULAR EP AT [address] [place] [address] Demetrius Bowling DNP [address] [place] [address] 2014 [place] [address] 02/05/2025 10:45 AM CDT Telephone Check Up [facility] Heart and Vascular At [address] [place] [address] 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 FNP [address] [place] [phone] documented as of this encounter Visit Diagnoses Diagnosis MGUS (monoclonal gammopathy of unknown significance) Monoclonal paraproteinemia Paroxysmal atrial fibrillation- Primary Atrial fibrillation Paroxysmal A-fib Atrial fibrillation Paroxysmal A-fib Atrial fibrillation documented in this encounter Care Teams Oven Drier Tender Relationship Specialty Start Date End Date Aliza Bain MD [address] [place] [address] PCP - General Family Practice 11/22/21 documented as of this encounter
--- OUTSIDE RECORDS SUMMARY | 2024-07-01 00:42 | XMS_ITS | Encounter Summary ---
Author Organization [facility] Address [address] [place] [address] Care Team Providers Care Public Relations Associate Name Role Phone Aliza Bain MD Primary Care Provider Encounter Details Date Type Department Care Team (Late st Contact Info) Description 03/08/2023 External Device Data STL ABSTRACTION Provider, Abstract [...] any clubs o r organizations such as buddhist groups, unions, fraternal or athletic groups, or [...] st Contact Info) Description 2024 11:00 AM MOTOR COACH CHAUFFEUR [facility] [address] [place] [address] 07/21/2024 9:45 AM MOTOR COACH CHAUFFEUR Appointment [facility] Toggle Press Operator [address] [place] [address] Kiel Vasquez MD [address] [place] [address] 07/21/2024 9:53 AM MOTOR COACH CHAUFFEUR Hospital Encounter [facility] Toggle Press Operator [address] [place] [address] Kiel Vasquez MD [address] [place] [address] Jesse Lackey-shirley 07/21/2024 9:53 AM MOTOR COACH CHAUFFEUR - 07/21/2024 11:46 AM MOTOR COACH CHAUFFEUR Surgery [facility] Toggle Press Operator [address] [place] [address] Kiel Vasquez MD [address] [place] [address] Left atrial appendage closure percutaneous 07/28/2024 8:30 AM MOTOR COACH CHAUFFEUR Office Visit [facility] Oncology and Hematology - [place] 2226 [facility] 200 [place] [address] Nahid Hickman MD 2227 [facility] [address] [place] [address] 09/09/2024 1:00 PM CDT Office Visit [facility] Heart and Vascular At [address] 2014 [place] [address] Kiel Vasquez MD [address] [place] [address] 2014 [place] [address] 12/16/2024 11:00 AM CDT Office Visit [facility] HEART AND VASCULAR EP AT [address] [place] [address] Demetrius Bowling DNP [address] [place] [address] 2014 [place] [address] 02/05/2025 10:45 AM CDT Telephone Check Up [facility] At [address] [place] [address] 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 FNP [address] [place] [address] documented as of this encounter Visit Diagnoses Not on filedocumented in this encounter Care Teams Public Relations Associate Relationship Specialty Start Date End Date Aliza Bain MD [address] [place] [phone] PCP - General Family Practice 11/22/21 documented as of this encounter
--- OUTSIDE RECORDS SUMMARY | 2024-07-01 00:42 | XMS_ITS | Encounter Summary ---
Author Organization [facility] [employer] [facility] Address [address] [place] [address] Care Team Providers Care Driving Teacher Name Role Phone Aliza Bain MD Primary Care Provider Reason for Visit * Reason Comments Cancer Encounter Details Date Type Department Care Team (Late st Contact Info) Description 06/05/2022 10:00 AM DEVELOPER ARCHITECT Office Visit [facility] Oncology and Hematology - [place] 2227 [facility] 200 [place] [address] Nahid Hickman MD 2227 [facility] [address] [place] [address] MGUS (monoclonal gammopathy of unknown significance) (Primary Dx); Malignant neoplasm of upper lobe of right lung Social History Tobacco Use Types Packs/Day [...] Coronavirus/COVID-19? No / Unsure 06/05/2022 9:47 AM DEVELOPER ARCHITECT documented as of this encounter Last Filed Vital Signs Vital Sign Reading Time Taken Comments Blood Pressure 183/75 06/05/2022 9:56 AM DEVELOPER ARCHITECT Pulse 72 06/05/2022 9:54 AM DEVELOPER ARCHITECT Temperature 36.4 ??C (97.5 ??F) 06/05/2022 9:54 AM CS T Respiratory Rate 14 06/05/2022 9:54 AM DEVELOPER ARCHITECT Oxygen Saturation 99% 06/05/2022 9:54 AM DEVELOPER ARCHITECT Inhaled Oxygen Concentration - - Weight 65.2 kg (143 lb 12.8 oz) 06/05/2022 9:54 AM DEVELOPER ARCHITECT Height - - Body Mass Index 25.47 12/15/2021 1:14 PM CDT documented in this encounter Progress Notes * Nahid Hickman MD - 06/05/2022 10:29 AM CST HEMATOLOGY / ONCOLOGY PROGRESS NOTE Patient Identification: Name: Cassandra Martinez Age: 76 y.o. 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 Is statuspost CT-guided biopsy of right upper lobe lung mass on July 19, 2020 that showed well differentiated adenocarcinoma. Molecular profile showed positive K-fifi mutation in exon 2 and PD-L1 expression of 2%. Negative ALK gene rearrangement. Monoclonal gammopathy of unknown significance CURRENT TREATMENT Surveillance TREATMENT HISTORY Right upper lobe lobectomy done on August 31, 2020. 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 Status post ablation for the atrial fibrillation in August 2021 SUBJECTIVE Patient came into the office for follow-up visit. She denies any abdominal pain. Denies any bone pain. No chest pain and shortness of breath. Weight and appetite stable. No other new complaints. Review of system Constitutional: denies fevers, sweats, denies any tiredness and fatigue HEENT: denies sinus congestion, hearing or vision problems Respiratory: denies cough,, some dyspnea on exertion Cardiovascular: denies chest pain, exertional chest pressure/discomfort, nausea, syncope, denies any cough and shortness of breath GI: denies constipation, diarrhea, dsyphagia, reflux symptoms, vomiting, melena : denies dysuria, frequency, incontinence, urgency Integumentary system: no lymphadenopathy, sweats, flushing Musculoskeletal: denies: myalgia, arthralgia, Neurological: denies blurry or disturbed vision, numbness/weakness, dizziness Skin: No lumps, bumps or rashes. 12 point review of system was reviewed and as above Objective: Vital signs in last 24 hours: [...] No lymphadenopathy Neuro: No obvious focal deficit Examination as above PATH LABS Labs from 10/26/2020 [...] light chain 87.5 with ratio of 0.24 Assessment: Plan: Patient Active Problem List Diagnosis Date Noted Chronic diastolic dysfunction 12/15/2021 Exertional shortness of [...] Negative ALK gene rearrangement. CT scan done on May 29 showed a stable finding. Clinically she remains asymptomatic. She has some sinus symptoms after she was diagnosed with COVID infection in March 2019 after coming back from her cruise trip. I will repeat CT scan chest in 6 months. MGUS. Labs noted with the patient. Patient informed me that she had high monoclonal protein about 7years ago. She remains asymptomatic. We will repeat labs in 6 months. Anemia. Hemoglobin is stable. She will continue vitamin B12 500 mcg daily along with oral iron 325 mg daily. Labs in 6 months. A. fib. Status post ablation. TOBACCO COUNSELING She is not a tobacco user. 06/05/2022 Nahid Hickman MD LOPER ARCHITECT documented in this encounter Plan of Treatment Upcoming Encounters Date Type Department Care Team (Late st Contact Info) Description 2024 11:00 AM DEVELOPER ARCHITECT Appointment [facility] [address] [place] [address] 07/21/2024 9:45 AM DEVELOPER ARCHITECT Appointment [facility] Desktop Support Specialist [address] [place] [address] Kiel Vasquez MD [address] [place] [address] 07/21/2024 9:53 AM DEVELOPER ARCHITECT Hospital Encounter [facility] Desktop Support Specialist [address] [place] [address] Kiel Vasquez MD [address] [place] [address] Paroxysmal A-fib 07/21/2024 9:53 AM DEVELOPER ARCHITECT - 07/21/2024 11:46 AM DEVELOPER ARCHITECT Surgery [facility] Desktop Support Specialist [address] [place] [address] Kiel Vasquez MD [address] [place] [address] Left atrial appendage closure percutaneous 07/28/2024 8:30 AM DEVELOPER ARCHITECT Office Visit [facility] Oncology and Hematology - [place] 222 [facility] 200 [place] [address] Nahid Hickman MD 2227 [facility] [address] [place] [address] 09/09/2024 1:00 PM CDT Office Visit [facility] Heart and Vascular At [address] [place] [address] Kiel Vasquez MD [address] [place] [address] 2014 [place] [address] 12/16/2024 11:00 AM CDT Office Visit [facility] HEART AND VASCULAR EP AT [address] [place] [address] Demetrius Bowling DNP [address] [place] [address] 2014 [place] [address] 02/05/2025 10:45 AM CDT Telephone Check Up [facility] Heart and Vascular At [address] [place] [address] 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 FNP [address] [place] [address] documented as of this encounter Visit Diagnoses Diagnosis MGUS (monoclonal gammopathy of unknown significance)- Primary Monoclonal paraproteinemia Malignant neoplasm of upper lobe of right lung Malignant neoplasm of upper lobe, bronchus or lung Paroxysmal atrial fibrillation- Primary Atrial fibrillation Paroxysmal A-fib Atrial fibrillation Paroxysmal A-fib Atrial fibrillation documented in this encounter Care Teams Driving Teacher Relationship Specialty Start Date End Date Aliza Bain MD [address] [place] [address] PCP - General Family Practice 11/22/21 documented as of this encounter
--- OUTSIDE RECORDS SUMMARY | 2024-07-01 00:42 | XMS_ITS | Encounter Summary ---
Author Organization [facility] [employer] [facility] Address [address] [place] [address] Care Team Providers Care Chip Unloader Name Role Phone Aliza Bain MD Primary Care Provider Encounter Details Date Type Department Care Team (Late st Contact Info) Description 05/30/2023 Orders Only [facility] Oncology and Hematology - [place] [address] [facility] 200 [place] [address] Nahid Hickman MD [address] [email or web address] [address] [place] [address] Social History Tobacco Use Types [...] and Family Not on file 07/29/2020 Attends [employer] Services Not on file 07/29 Do you belong to any clubs o r organizations such as zoroastrianism groups, unions, fraternal or athletic groups, or [...] st Contact Info) Description 2024 11:00 AM CLIENT EXPERIENCE SPECIALIST Appointment [facility] [address] [place] [address] 07/21/2024 9:45 AM CLIENT EXPERIENCE SPECIALIST Appointment [facility] Core Setter [address] [place] [phone] Kiel Vasquez MD [address] [facility] [address] [place] [address] 07/21/2024 9:53 AM CLIENT EXPERIENCE SPECIALIST Hospital Encounter [facility] Core Setter [address] [place] [address] Kiel Vasquez MD [address] [facility] [address] [place] [address] Paroxysmal A-fib 07/21/2024 9:53 AM CLIENT EXPERIENCE SPECIALIST - 07/21/2024 11:46 AM CLIENT EXPERIENCE SPECIALIST Surgery [facility] Core Setter [address] [place] [phone] Kiel Vasquez MD [address] [place] [address] 2014 [place] [address] Left atrial appendage closure percutaneous 07/28/2024 8:30 AM CLIENT EXPERIENCE SPECIALIST Office Visit [facility] Oncology and Hematology - [place] 2227 [facility] 200 [place] [address] Nahid Hickman MD 2227 [facility] [address] [place] [address] 09/09/2024 1:00 PM CDT Office Visit [facility] Heart and Vascular At [address] [place] [address] Kiel Vasquez MD [address] [place] [address] 2014 [place] [address] 12/16/2024 11:00 AM CDT Office Visit [facility] HEART AND VASCULAR EP AT [address] [place] [address] Demetrius Bowling DNP [address] [place] [address] 2014 [place] [address] 02/05/2025 10:45 AM CDT Telephone Check Up [facility] Heart and Vascular At [address] [place] [address] 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 FNP [facility] [place] [address] documented as of this encounter Procedures Procedure Name Priority Date/Time Associated Diagnosis Comments CBC WITH DIFFERENTIAL Routine 05/28/2023 10:59 AM CLIENT EXPERIENCE SPECIALIST documented in this encounter Results * CBC WITH DIFFERENTIAL (05/28/2023 10:59 AM CLIENT EXPERIENCE SPECIALIST) Blood Nahid Hickman MD HEMATOLOGY ORDERABLE S documented in this encounter Visit Diagnoses Not on filedocumented in this encounter Care Teams Chip Unloader Relationship Specialty Start Date End Date Aliza Bain MD [address] [place] [address] PCP - General Family Practice 11/22/21 documented as of this encounter
--- OUTSIDE RECORDS SUMMARY | 2024-07-01 00:42 | XMS_ITS | Encounter Summary ---
Author Organization [facility] Address [address] [place] [address] Care Team Providers Care Hand Braille Transcriber Name Role Phone Aliza Bain MD Primary Care Provider Reason for Visit * Echocardiography (Routine) - Closed Specialty Diagnoses / Procedures Referred By Contac t Referred To Contact Diagnoses Chronic diastolic congestive heart failure Paroxysmal atrial fibrillation Carotid artery disease, unspecified laterality, unspecified type Procedures ECHOCARDIOGRAM W/ CONTRAST AGENT ECHO COMPLETE W SAME DAY STRESS Kiel Vasquez MD [address] [place] [address] [facility] Non Invasive Cardiology [address] [place] [address] Referral ID Status Reason Start Date Expiration Date Visits Re quested Visits Authorized [id number] Closed 09/21/2023 10/19/2023 1 1 Encounter Details Date Type Department Care Team (Latest Contact Info) Description 09/21/2023 11:05 AM CDT - 09/21/2023 11:59 PM CDT Hospital Encounter [facility] Non Invasive Cardiology [address] [place] [address] Kiel Vasquez MD [address] [place] [address] Discharge Disposition: Home or Self [...] and Family Not on file 07/29/2020 Attends [employer]ology Services Not on file 07/29 Do you belong to any clubs o r organizations such as caodaism groups, unions, fraternal or athletic groups, or [...] by mouth daily. 90 Tablet 09/25/2023 10/30/2023 amLODIPine (NORVASC) 5 mg tablet Take 1 Tablet (5 mg) by mouth daily. 30 Tablet 3 08/28/2023 09/25/2023 hydroCHLOROthiazide 25 mg tablet TAKE 1 TABLET BY MOUTH EVERY DAY 05/07/2020 10/30/2023 documented as of this encounter Procedure Notes * Missy Chaney RDMS - 09/21/2023 11:30 AM CDT Images from the original note were not included. [facility] DCS Definity Protocol [facility] Approved by: [facility] - Medical Executive Committee Approval Date: 11/30/2022 [...] of DEFINITY?? on ECMO patients. The ECMO twine reeling machine operator must bepresent when the DEFINITY ?? is administered and while images are being obtained. The ECMO operatorcan be reached at [address] [place] [address] ([phone] in [place]) If patient meets/states ???yes to any exclusion criteria, STOP THE PROCEDURE, and annotate exam accordingly Patient meets at least one of these inclusion criteria Credentialed provider request Patient is technically difficult to image ([place] Society of Echocardiography guidelines recommend use when [...] ordered by a credentialed provider, RN or parking lot signaler Educate patient or responsible alliance party on DEFINITY?? indications and potential side effects and review procedure goals with the patient and/or caregiver Verify patient does not have any allergy or contraindications to receive DEFINITY?? or octaflouropropane and confirm Allergies by ???Marking as Reviewed?? in patient's chart Verify peripheral or central line IV access. If IV access is not available, then a trained parking lot signaler core layer machine operator may place peripheral IV access, as appropriate, [...] below for further information) RN or trained parking lot signaler may discontinue peripheral IV access when IV [...] using smartphrase: .DEFINITYprotocol documented in this encounter Plan of Treatment Upcoming Encounters Date Type Department Care Team (Late st Contact Info) Description 2024 11:00 AM MANAGER SECURITY Appointment [facility] [address] [place] [address] 07/21/2024 9:45 AM MANAGER SECURITY Appointment [facility] Automatic Door Mechanic [address] [place] [address] Kiel Vasquez MD [address] [place] [address] 07/21/2024 9:53 AM MANAGER SECURITY Hospital Encounter [facility] [employer] [address] [place] [phone] Kiel Vasquez MD [address] [place] [phone] Paroxysmal A-fib 07/21/2024 9:53 AM MANAGER SECURITY - 07/21/2024 11:46 AM MANAGER SECURITY Surgery [facility] Automatic Door Mechanic [address] [place] [phone] Kiel Vasquez MD [address] [place] [address] [address] [place] [phone] Left atrial appendage closure percutaneous 07/28/2024 8:30 AM MANAGER SECURITY Office Visit [facility] Oncology and Hematology - [place] [address] [facility] [address] [place] [address] Nahid Hickman MD [address] [facility] [address] [place] [address] 09/09/2024 1:00 PM CDT Office Visit [facility] Heart and Vascular At [address] [place] [address] Kiel Vasquez MD [address] [place] [address] 2014 [place] [phone] 12/16/2024 11:00 AM CDT Office Visit [facility] HEART AND VASCULAR EP AT [address] [place] [phone] Demetrius Bowling DNP [address] [place] [address] 2014 [place] [address] 02/05/2025 10:45 AM CDT Telephone Check Up [facility] Heart and Vascular At [address] [place] [address] 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 FNP [address] [place] [phone] documented as of this encounter Procedures Procedure Name Priority Date/Time Associated Diagnosis Comments ECHOCARDIOGRAM W/ CONTRAST AGENT Routine 09/21/2023 1:02 PM CDT Chronic diastolic congestive heart failure Paroxysmal atrial fibrillation Carotid artery disease, unspecified laterality, unspecified type documented in this encounter Results * ECHOCARDIOGRAM W/ CONTRAST AGENT (09/21/2023 1:02 PM CDT) EJECTION FRACTION 65 INTERFACE SYSTEM 09/21/2023 10:4 8 AM CDT Narrative INTERFACE SYSTEM - 09/21/2023 1:29 PM CDT [address] [address] [email or web address] Transthoracic Echocardiogram Patient: ? Cassandra Martinez MRN: ? [id number] Study ID: ?ECHO COMPLETE W Gender: ?F : ? 1945 Age: ? 78 Race: ?CAU Height ? 160cm Study Date: ?09/21/2023 Weight: ?62.1kg Access. #: ? [id number] Account #: ? [id number] BP: *Referring Physician:* Kiel Vasquez Jacob *Ordering Physician:* ??Kiel Vasquez protection analyst: Nurse: Indications: Hypertension. STUDY CONCLUSIONS: SUMMARY: - Left ventricle: The cavity size was normal. Wall thickness was increased in ??a pattern of moderate LVH. Global systolic function is normal. The estimated ??ejection fraction is 60-65%. For Epic reporting: the left ventricular ??ejection fraction is 65% . Left ventricular diastolic function parameters ??are normal. - Left atrium: The atrium is normal in size. - Right ventricle: The cavity size is normal. Systolic function is normal. - Pulmonary arteries: The peak systolic pressure is 26mm Hg. - No significant valvular abnormalities. Cardiac Anatomy: Left ventricle: ??The cavity size was normal. Wall thickness was increased in a pattern of moderate LVH. Global systolic function is normal. The estimated ejection fraction is 60-65%. For Epic reporting: the left ventricular ejection fraction is 65% . Left ventricular diastolic function parameters are normal. LEFT VENTRICLE: ??The cavity size was normal. Wall thickness was increased in a pattern of moderate LVH. Global systolic function is normal. The estimated ejection fraction is 60-65%. For Epic reporting: the left ventricular ejection fraction is 65% . Left ventricular diastolic function parameters are normal. AORTIC VALVE: ?? Structurally normal valve. Trileaflet. ??No significant regurgitation. The mean systolic gradient is 3mm Hg. The peak systolic gradient is 6mm Hg. The LVOT to aortic valve VTI ratio is 0.71. The valve area is 2.2cm^2. The ratio of LVOT to aortic valve peak velocity is 0.71. AORTA: Aortic root: The root is normal-sized. MITRAL VALVE: ?? Structurally normal valve. ?No significant regurgitation. The peak diastolic gradient is 3mm Hg. LEFT ATRIUM: ??The atrium is normal in size. RIGHT VENTRICLE: ??The cavity size is normal. Systolic function is normal. PULMONIC VALVE: ?? Structurally normal valve. ?No significant regurgitation. TRICUSPID VALVE: ?? Structurally normal valve. ?No significant regurgitation. RIGHT ATRIUM: ??The atrium was normal in size. SYSTEMIC VEINS: Inferior vena cava: The IVC is normal-sized. PERICARDIUM: ?? There is no pericardial effusion. Measurements Left ventricle ? Value ?Ref ? 07/01/2021 ROCIO, LAX ? (L) 2.7 ?? cm ? 3.8 - 5.2 3.0 ROCIO/bsa, LAX ? (L) 1.6 ?? cm/m^2 ?? 2.3 - 3.1 1.8 ROCIO, LAX chord ? (N) 4.7 ?? cm ? 3.8 - 5.2 4.5 ESD, LAX chord ? (N) 2.7 ?? cm ? 2.2 - 3.5 3.0 ROCIO/bsa, LAX chord ? (N) 2.8 ?? cm/m^2 ?? 2.3 - 3.1 2.7 ESD/bsa, LAX chord ? (N) 1.6 ?? cm/m^2 ?? 1.3 - 2.1 1.8 FS, LAX chord ?(N) 43 ?% ?27 - 45 ?? 34 IVS, ED ?(H) 1.1 ?? cm ? 0.6 - 0.9 1.1 PW, ED ? (N) 0.9 ?? cm ? 0.6 - 0.9 1.0 EDV, 2-p ? (N) 95 ?ml ? 46 - 106 ??92 ESV, 2-p ? (N) 27 ?ml ? 14 - 42 ?? 26 EF, 2-p ?(N) 72 ?% ?54 - 74 ?? 72 SV, 2-p ?68 ?ml ? --------- 66 SV/bsa, 2-p ?41.2 ??ml/m^2 ?? --------- 38.8 E', lat john, TDI ? (N) 12.0 ??cm/sec ?? >=10.0 ?6.9 E/e', lat john, TDI ? (N) 7 ?<=13 ? E', med john, TDI ? (N) 7.3 ?? cm/sec ?? >=7.0 ? 6.5 E/e', med john, TDI ? 12 ? --------- E', avg, TDI ? 9.6 ?? cm/sec ?? --------- E/e', avg, TDI ? (N) 9 ?<=14 ? LVOT ? Value ?Ref ? 07/01/2021 Diam, S ?2.0 ?? cm ? --------- Area ? 3.1 ?? cm^2 ? --------- 3.1 Peak lance, S ?0.83 ??m/sec ?--------- 0.84 VTI, S ? 20.0 ??cm ? --------- 15.9 Right ventricle ?Value ?Ref ? 07/01/2021 ROCIO minor ax, A4C base (N) 3.2 ?? cm ? 2.5 - 4.1 ROCIO minor ax, A4C mid ??(N) 2.2 ?? cm ? 1.9 - 3.5 TAPSE, MM ?(N) 1.9 ?? cm ? >=1.7 ? Pressure, S ?30 ?mm Hg ?--------- 25 S' lateral ? (N) 12.1 ??cm/sec ?? >=9.5 ? Left atrium ?Value ?Ref ? 07/01/2021 AP dim, ES ? (N) 3.7 ?? cm ? 2.7 - 3.8 3.4 AP dim index, ES ? (N) 2.2 ?? cm/m^2 ?? 1.5 - 2.3 SI dim, A4C ?4.2 ?? cm ? --------- 4.6 Area ES, A4C ? (N) 13 ?cm^2 ? <=20 ?18 Area/bsa ES, A4C ? 7.82 ??cm^2/m^2 --------- SI dim, A2C ?5.4 ?? cm ? --------- 5.0 SI dim, shorter ?4.2 ?? cm ? --------- 4.6 Vol, ES, 1-p A4C ? (N) 29 ?ml ? 22 - 52 ?? 57 Vol/bsa, ES, 1-p A4C ?? (N) 17 ?ml/m^2 ?? 11 - 40 ?? 34 Vol, ES, 1-p A2C ? (N) 38 ?ml ? 22 - 52 ?? 53 Vol/bsa, ES, 1-p A2C ?? (N) 23 ?ml/m^2 ?? 13 - 40 ?? 31 LA/Ao root ratio ? 1.42 ? --------- 1.21 Right atrium ? Value ?Ref ? 07/01/2021 SI dim, ES, A4C ?(N) 4.1 ?? cm ? 3.4 - 5.3 SI dim/bsa, ES, A4C ?(N) 2.5 ?? cm/m^2 ?? 1.9 - 3.1 Area, ES, A4C ?(N) 10 ?cm^2 ? 10 - 18 ?? Vol, ES, 1-p A4C ? 20 ?ml ? --------- Vol/bsa, ES, 1-p A4C ?? (N) 12 ?ml/m^2 ?? 9 - 33 ? Aortic valve ? Value ?Ref ? 07/01/2021 Peak v, S ?1.2 ?? m/sec ?--------- 1.4 Mean v, S ?0.8 ?? m/sec ?--------- 0.8 VTI, S ? 28.2 ??cm ? --------- 22.9 Mean grad, S ? 3 ? mm Hg ?--------- 3 Peak grad, S ? 6 ? mm Hg ?--------- 8 LVOT/AV, VTI ratio ? 0.71 ? --------- 0.69 OLRIN, VTI ? 2.2 ?? cm^2 ? --------- 2.2 ORLIN/bsa, VTI ? 1.35 ??cm^2/m^2 --------- 1.28 LVOT/AV, Vpeak ratio ? 0.71 ? --------- 0.6 ORLIN, Vmax ?2.2 ?? cm^2 ? --------- 1.9 ORLIN/bsa, Vmax ?1.35 ??cm^2/m^2 --------- 1.11 Mitral valve ? Value ?Ref ? 07/01/2021 Peak E ? 0.89 ??m/sec ?--------- 0.61 Peak A ? 0.7 ?? m/sec ?--------- 0.36 Decel time ? 162 ?? ms ? --------- 197 Peak grad, D ? 3 ? mm Hg ?--------- Peak E/A ratio ? 1.3 ?--------- Pulmonic valve ? Value ?Ref ? 07/01/2021 Peak v, S ?1 ? m/sec ?--------- 0.92 Peak grad, S ? 4 ? mm Hg ?--------- 3 Tricuspid valve ?Value ?Ref ? 07/01/2021 TR peak v ?(N) 1.2 ?? m/sec ?<=2.8 ? 1 Peak RV-RA grad, S ? 25 ?mm Hg ?--------- 20 Aortic root ?Value ?Ref ? 07/01/2021 Root diam, ? 2.6 ?? cm ? --------- Ascending aorta ?Value ?Ref ? 07/01/2021 AAo AP diam, S ? 2.5 ?? cm ? --------- AAo AP diam/bsa, S ? 1.5 ?? cm/m^2 ?? --------- Pulmonary artery ? Value ?Ref ? 07/01/2021 Pressure, S ?26 ?mm Hg ?--------- 25 Systemic veins ? Value ?Ref ? 07/01/2021 Estimated RA pressure ?5 ? mm Hg ?--------- 5 Legend: (L) ??and ??(H) ??yasmeen values outside specified reference range. (N) ??gifford values inside specified reference range. Procedure data: Procedure information: ??A transthoracic echocardiogram was performed. Scanning was performed from the parasternal, apical, and subcostal acoustic windows. ?Transthoracic echocardiogram. ??Complete 2D, complete spectral Doppler, and color Doppler. ??Birthdate: ??Patient birthdate: 1945. ??Age: ??Patient is 78year(s) old. ??Sex: ?? gender: female. ??Height: ??160cm. 63in. ??Weight: 62.1kg. 137lb. ??Body mass index: ??24.3kg/m^2. ??Body surface area: ?1.65m^2. Study date: ??Study date: 09/21/2023. Study time: 10:48 AM. ?Prepared and Electronically Authenticated Adrien Dunne [id number]:29:16 Procedure Note Adrien Dunne MD - 09/21/[address] [address] [email or web address] Transthoracic Echocardiogram Patient: Cassandra Martinez Study ID: ECHO COMPLETE W Gender: F : 1945 Age: 78 Race: [facility] Height 160cm Study Date: 09/21/2023 Weight: 62.1kg Access. #: [id number] BP: *Referring Physician:Kiel Aguillon Jacob *Ordering Physician:Kiel Aguillon protection analyst: Nurse: Indications: Hypertension. STUDY CONCLUSIONS: SUMMARY: - Left ventricle: The cavity size was normal. Wall thickness was increasedin a pattern of moderate LVH. Global systolic function is normal. Theestimated ejection fraction is 60-65%. For Epic reporting: the left ventricular ejection fraction is 65% . Left ventricular diastolic functionparameters are normal. - Left atrium: The atrium is normal in size. - Right ventricle: The cavity size is normal. Systolic function isnormal. - Pulmonary arteries: The peak systolic pressure is 26mm Hg. - No significant valvular abnormalities. Cardiac Anatomy: Left ventricle: The cavity size was normal. Wall thickness was increasedin a pattern of moderate LVH. Global systolic function is normal. Theestimated ejection fraction is 60-65%. For Epic reporting: the left ventricularejection fraction is 65% . Left ventricular diastolic function parameters arenormal. LEFT VENTRICLE: The cavity size was normal. Wall thickness was increasedin a pattern of moderate LVH. Global systolic function is normal. Theestimated ejection fraction is 60-65%. For Epic reporting: the left ventricularejection fraction is 65% . Left ventricular diastolic function parameters arenormal. AORTIC VALVE: Structurally normal valve. Trileaflet. No significant regurgitation. The mean systolic gradient is 3mm Hg. The peak systolic gradient is 6mm Hg. The LVOT to aortic valve VTI ratio is 0.71. The valvearea is 2.2cm^2. The ratio of LVOT to aortic valve peak velocity is 0.71. AORTA: Aortic root: The root is normal-sized. MITRAL VALVE: Structurally normal valve. No significantregurgitation. The peak diastolic gradient is 3mm Hg. LEFT ATRIUM: The atrium is normal in size. RIGHT VENTRICLE: The cavity size is normal. Systolic function isnormal. PULMONIC VALVE: Structurally normal valve. No significantregurgitation. TRICUSPID VALVE: Structurally normal valve. No significantregurgitation. RIGHT ATRIUM: The atrium was normal in size. SYSTEMIC VEINS: Inferior vena cava: The IVC is normal-sized. PERICARDIUM: There is no pericardial effusion. Measurements Left ventricle Value Ref 07/01/2021 ROCIO, LAX (L) 2.7 cm 3.8 - 5.2 3.0 ROCIO/bsa, LAX (L) 1.6 cm/m^2 2.3 - 3.1 1.8 ROCIO, LAX chord (N) 4.7 cm 3.8 - 5.2 4.5 ESD, LAX chord (N) 2.7 cm 2.2 - 3.5 3.0 ROCIO/bsa, LAX chord (N) 2.8 cm/m^2 2.3 - 3.1 2.7 ESD/bsa, LAX chord (N) 1.6 cm/m^2 1.3 - 2.1 1.8 FS, LAX chord (N) 43 % 27 - 45 34 IVS, ED (H) 1.1 cm 0.6 - 0.9 1.1 PW, ED (N) 0.9 cm 0.6 - 0.9 1.0 EDV, 2-p (N) 95 ml 46 - 106 92 ESV, 2-p (N) 27 ml 14 - 42 26 EF, 2-p (N) 72 % 54 - 74 72 SV, 2-p 68 ml --------- 66 SV/bsa, 2-p 41.2 ml/m^2 --------- 38.8 E', lat john, TDI (N) 12.0 cm/sec >=10.0 6.9 E/e', lat john, TDI (N) 7 <=13 E', med john, TDI (N) 7.3 cm/sec >=7.0 6.5 E/e', med john, TDI 12 --------- E', avg, TDI 9.6 cm/sec --------- E/e', avg, TDI (N) 9 <=14 LVOT Value Ref 07/01/2021 Diam, S 2.0 cm --------- Area 3.1 cm^2 --------- 3.1 Peak lance, S 0.83 m/sec --------- 0.84 VTI, S 20.0 cm --------- 15.9 Right ventricle Value Ref 07/01/2021 ROCIO minor ax, A4C base (N) 3.2 cm 2.5 - 4.1 ROCIO minor ax, A4C mid (N) 2.2 cm 1.9 - 3.5 TAPSE, MM (N) 1.9 cm >=1.7 Pressure, S 30 mm Hg --------- 25 S' lateral (N) 12.1 cm/sec >=9.5 Left atrium Value Ref 07/01/2021 AP dim, ES (N) 3.7 cm 2.7 - 3.8 3.4 AP dim index, ES (N) 2.2 cm/m^2 1.5 - 2.3 SI dim, A4C 4.2 cm --------- 4.6 Area ES, A4C (N) 13 cm^2 <=20 18 Area/bsa ES, A4C 7.82 cm^2/m^2 --------- SI dim, A2C 5.4 cm --------- 5.0 SI dim, shorter 4.2 cm --------- 4.6 Vol, ES, 1-p A4C (N) 29 ml 22 - 52 57 Vol/bsa, ES, 1-p A4C (N) 17 ml/m^2 11 - 40 34 Vol, ES, 1-p A2C (N) 38 ml 22 - 52 53 Vol/bsa, ES, 1-p A2C (N) 23 ml/m^2 13 - 40 31 LA/Ao root ratio 1.42 --------- 1.21 Right atrium Value Ref 07/01/2021 SI dim, ES, A4C (N) 4.1 cm 3.4 - 5.3 SI dim/bsa, ES, A4C (N) 2.5 cm/m^2 1.9 - 3.1 Area, ES, A4C (N) 10 cm^2 10 - 18 Vol, ES, 1-p A4C 20 ml --------- Vol/bsa, ES, 1-p A4C (N) 12 ml/m^2 9 - 33 Aortic valve Value Ref 07/01/2021 Peak v, S 1.2 m/sec --------- 1.4 Mean v, S 0.8 m/sec --------- 0.8 VTI, S 28.2 cm --------- 22.9 Mean grad, S 3 mm Hg --------- 3 Peak grad, S 6 mm Hg --------- 8 LVOT/AV, VTI ratio 0.71 --------- 0.69 ORLIN, VTI 2.2 cm^2 --------- 2.2 ORLIN/bsa, VTI 1.35 cm^2/m^2 --------- 1.28 LVOT/AV, Vpeak ratio 0.71 --------- 0.6 ORLIN, Vmax 2.2 cm^2 --------- 1.9 ORLIN/bsa, Vmax 1.35 cm^2/m^2 --------- 1.11 Mitral valve Value Ref 07/01/2021 Peak E 0.89 m/sec --------- 0.61 Peak A 0.7 m/sec --------- 0.36 Decel time 162 ms --------- 197 Peak grad, D 3 mm Hg --------- Peak E/A ratio 1.3 --------- Pulmonic valve Value Ref 07/01/2021 Peak v, S 1 m/sec --------- 0.92 Peak grad, S 4 mm Hg --------- 3 Tricuspid valve Value Ref 07/01/2021 TR peak v (N) 1.2 m/sec <=2.8 1 Peak RV-RA grad, S 25 mm Hg --------- 20 Aortic root Value Ref 07/01/2021 Root diam, 2.6 cm --------- Ascending aorta Value Ref 07/01/2021 AAo AP diam, S 2.5 cm --------- AAo AP diam/bsa, S 1.5 cm/m^2 --------- Pulmonary artery Value Ref 07/01/2021 Pressure, S 26 mm Hg --------- 25 Systemic veins Value Ref 07/01/2021 Estimated RA pressure 5 mm Hg --------- 5 Legend: (L) and (H) yasmeen values outside specified reference range. (N) gifford values inside specified reference range. Procedure data: Procedure information: A transthoracic echocardiogram was performed.Scanning was performed from the parasternal, apical, and subcostal acousticwindows. Transthoracic echocardiogram. Complete 2D, complete spectralDoppler, and color Doppler. Birthdate: Patient birthdate: 1945. Age:Patient is 78year(s) old. Sex: gender: female. Height: 160cm. 63in.Weight: 62.1kg. 137lb. Body mass index: 24.3kg/m^2. Body surface area:1.65m^2. Study date: Study date: 09/21/2023. Study time: 10:48 AM. Preparedand Electronically Authenticated Adrien Dunne [id number] Kiel Vasquez MD ORDERABLES INTERFACE SYSTEM Refer to clinic/hospital department documented in this encounter Visit Diagnoses Diagnosis Chronic diastolic congestive heart failure Chronic diastolic heart failure Paroxysmal atrial fibrillation Atrial fibrillation Carotid artery disease, unspecified laterality, unspecified type Paroxysmal atrial fibrillation- Primary Atrial fibrillation Paroxysmal A-fib Atrial fibrillation Paroxysmal A-fib Atrial fibrillation documented in this encounter Administered Medications Inactive Administered Medications - up to 3 most recent administrations Medication Order MAR Action Action Date Dose Rate Site perflutren lipid microspheres (DEFINITY) 1.1 mg/mL injection 2 mL 2 mL, IV, INTRA-PROCEDURE ONCE, 1 dose, Starting on Sun09/21/23 at 1235, Until Sun09/21/23 at 1200, Routine Contrast Given 09/21/2023 12:00 PM CDT 2 mL documented in this encounter Care Teams Hand Braille Transcriber Relationship Specialty Start Date End Date Aliza Bain MD [address] [place] [phone] PCP - General Family Practice 11/22/21 documented as of this encounter
--- OUTSIDE RECORDS SUMMARY | 2024-07-01 00:42 | XMS_ITS | Encounter Summary ---
Author Organization [facility] [employer] [facility] Address [address] [place] [address] Care Team Providers Care Acquisition Associate Name Role Phone Aliza Bain MD Primary Care Provider Encounter Details Date Type Department Care Team (Late st Contact Info) Description 12/05/2022 Orders Only [facility] Oncology and Hematology - [place] [address] [facility] [address] [place] [address] Nahid Hickman MD [address] [place] [address] Social History Tobacco Use Types [...] any clubs o r organizations such as buddhism groups, unions, fraternal or athletic groups, or [...] st Contact Info) Description 2024 11:00 AM SONAR WATCHSTANDER Appointment [facility] Manjit [address] [place] [address] 07/21/2024 9:45 AM SONAR WATCHSTANDER Appointment [facility] Manager User Interface [address] [place] [phone] Kiel Vasquez MD [address] [facility] [address] [place] [address] 07/21/2024 9:53 AM SONAR WATCHSTANDER Hospital Encounter [facility] Manager User Interface [address] [place] [address] Kiel Vasquez MD [address] [facility] [address] [place] [address] Paroxysmal A-fib 07/21/2024 9:53 AM SONAR WATCHSTANDER - 07/21/2024 11:46 AM SONAR WATCHSTANDER Surgery [facility] Manager User Interface [address] [place] [phone] Kiel Vasquez MD [address] [place] [address] 2014 [place] [address] Left atrial appendage closure percutaneous 07/28/2024 8:30 AM SONAR WATCHSTANDER Office Visit [facility] Oncology and Hematology - [place] [address] [facility] 200 [place] [address] Nahid Hickman MD [address] [facility] [address] [place] [address] 09/09/2024 1:00 PM CDT Office Visit [facility] Heart and Vascular At [address] [place] [address] Kiel Vasquez MD [address] [place] [address] 2014 [place] [address] 12/16/2024 11:00 AM CDT Office Visit [facility] HEART AND VASCULAR EP AT [address] [place] [address] Demetrius Bowling DNP [address] [place] [address] 2014 [place] [address] 02/05/2025 10:45 AM CDT Telephone Check Up [facility] Heart and Vascular At [address] [place] [address] 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 FNP [facility] [place] [address] documented as of this encounter Procedures Procedure Name Priority Date/Time Associated Diagnosis Comments CT CHEST W CONTRAST Routine 11/27/2022 2:55 PM CDT documented in this encounter Results * CT CHEST W CONTRAST (11/27/2022 2:55 PM CDT) Anatomical Region Laterality Modality Chest Other Nahid Hickman MD CT ORDERABLES documented in this encounter Visit Diagnoses Not on filedocumented in this encounter Care Teams Acquisition Associate Relationship Specialty Start Date End Date Aliza Bain MD [address] [place] [address] PCP - General Family Practice 11/22/21 documented as of this encounter
--- OUTSIDE RECORDS SUMMARY | 2024-07-01 00:42 | XMS_ITS | Encounter Summary ---
Author Organization [facility] Address [address] [place] [address] Care Team Providers Care Risk Management Internship Name Role Phone Aliza Bain MD Primary Care Provider Reason for Referral * Nuclear Medicine (Routine) - Closed Specialty Diagnoses / Procedures Referred By Contac t Referred To Contact Radiology Diagnoses Chronic diastolic congestive heart failure New onset atrial fibrillation Benign hypertension Procedures NM PHARMACOLOGICAL STRESS TEST Kiel Vasquez MD [address] [facility] [address] [place] [address] [facility] [address] [place] [address] Referral ID Status Reason Start Date Expiration Date Visits Re quested Visits Authorized [id number] Closed 09/25/2023 10/25/2024 1 1 * Nuclear Medicine (Routine) - Closed Specialty Diagnoses / Procedures Referred By Contac t Referred To Contact Radiology Diagnoses Chronic diastolic congestive heart failure New onset atrial fibrillation Benign hypertension Procedures NM MYOCARD PERF IMAG SPECT Kiel Cuevas MD [address] [facility] [address] [place] [address] [facility] Nuclear Cardiology [address] [place] [address] Referral ID Status Reason Start Date Expiration Date Visits Re quested Visits Authorized [id number] Closed 09/25/2023 10/25/2024 1 1 Reason for Visit * Reason Onset Date Comments stress test cancelled 09/21/2023 Encounter Details Date Type Department Care Team (Late st Contact Info) Description 09/21/2023 Telephone [facility] Heart and Vascular At [place] [address] [place] [address] Kiel Vasquez MD [address] [facility] [address] [place] [address] stress test cancelled Social History Tobacco Use Types Packs/Day Years [...] and Family Not on file 07/29/2020 Attends [employer] Services Not on file 07/29 Do you belong to any clubs o r organizations such as jew groups, unions, fraternal or athletic groups, or [...] Telephone Encounter - Melanie Swenson RN - 09/25/2023 10:40 AM CDT Left detailed message for pt, direct phone # given. Amlodipine rx updated. Lexiscan stress test ordered. Gave pt scheduling phone # on VM. * Telephone Encounter - Melanie Swenson RN - 09/21/2023 3:24 PM CDT Per [employer] chat messages: good afternoon. this pt arrived for a dobutamine stress echo. Dr Dunne would like her to reschedule due to her high BP especially with a Dobutamine stress test. I wanted to pass it on to you before we reschedule her in case your office wanted a different test. or if you needed to adjust her meds. Dr Vasquez said: we can reschedule her with a tod MPI, increase norvasc to 10mg daily LM for pt, direct phone # given. documented in this encounter Plan of Treatment Upcoming Encounters Date Type Department Care Team (Late st Contact Info) Description 2024 11:00 AM PACKAGING MACHINE OPERATOR Appointment [facility] [address] [place] [address] 07/21/2024 9:45 AM PACKAGING MACHINE OPERATOR Appointment [facility] Senior Structural Engineer [address] [place] [address] Kiel Vasquez MD [address] [facility] [address] [place] [address] 07/21/2024 9:53 AM PACKAGING MACHINE OPERATOR Hospital Encounter [facility] Senior Structural Engineer [address] [place] [address] Kiel Vasquez MD [address] [facility] [address] [place] [address] Paroxysmal A-fib 07/21/2024 9:53 AM PACKAGING MACHINE OPERATOR - 07/21/2024 11:46 AM PACKAGING MACHINE OPERATOR Surgery [facility] Senior Structural Engineer [address] [place] [address] Kiel Vasquez MD [address] [facility] [address] [place] [address] Left atrial appendage closure percutaneous 07/28/2024 8:30 AM PACKAGING MACHINE OPERATOR Office Visit [facility] Oncology and Hematology - [place] [address] [place] [phone] Nahid Hickman MD [address] [address] 09/09/2024 1:00 PM CDT Office Visit [facility] Heart and Vascular At [address] [place] [address] Kiel Vasquez MD [address] [facility] [address] [place] [address] 12/16/2024 11:00 AM CDT Office Visit [facility] HEART AND VASCULAR EP AT [address] [place] [address] Demetrius Bowling DNP [address] [facility] [address] [place] [address] 02/05/2025 10:45 AM CDT Telephone Check Up [facility] Heart and Vascular At [facility] [address] [facility] [place] [address] 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 FNP [address] [place] [address] documented as of this encounter Results * NM MYOCARD PERF [...] INTERFACE SYSTEM Refer to clinic/hospital department * NM PHARMACOLOGICAL STRESS TEST (10/03/2023 2:29 PM CDT) Narrative 10/03/2023 2:30 PM CDT Order information only. ??Exam was auto-finalized. ?? Kiel Vasquez MD NM ORDERABLES documented in this encounter Visit Diagnoses Diagnosis Chronic diastolic congestive heart failure- Primary Chronic diastolic heart failure New onset atrial fibrillation Atrial fibrillation Benign hypertension Essential hypertension, benign Chronic diastolic congestive heart failure Chronic diastolic heart failure New onset atrial fibrillation Atrial fibrillation Benign hypertension Essential hypertension, benign Chronic diastolic congestive heart failure Chronic diastolic heart failure New onset atrial fibrillation Atrial fibrillation Benign hypertension Essential hypertension, benign Paroxysmal atrial fibrillation- Primary Atrial fibrillation Paroxysmal A-fib Atrial fibrillation Paroxysmal A-fib Atrial fibrillation documented in this encounter Care Teams Risk Management Internship Relationship Specialty Start Date End Date Aliza Bain MD [address] [place] [address] PCP - General Family Practice 11/22/21 documented as of this encounter
--- OUTSIDE RECORDS SUMMARY | 2024-07-01 00:42 | XMS_ITS | Encounter Summary ---
Author Organization [facility] Address [address] [place] [address] Care Team Providers Care Chief Dispatcher Name Role Phone Aliza Bain MD Primary Care Provider Encounter Details Date Type Department Care Team (Late st Contact Info) Description 07/18/2023 External Device Data STL ABSTRACTION Provider, Abstract [...] and Family Not on file 07/29/2020 Attends [employer] Services Not on file 07/29 Do you [...] st Contact Info) Description 2024 11:00 AM CHANNELER OUTSOLE Appointment [facility] [address] [place] [address] 07/21/2024 9:45 AM CHANNELER OUTSOLE Appointment [facility] Geosciences Faculty Member [address] [place] [address] Kiel Vasquez MD [address] [place] [address] 07/21/2024 9:53 AM CHANNELER OUTSOLE Hospital Encounter [facility] Faculty Member [address] [place] [address] Kiel Vasquez MD [address] [place] [address] Jesse Lackey-shirley 07/21/2024 9:53 AM CHANNELER OUTSOLE - 07/21/2024 11:46 AM CHANNELER OUTSOLE Surgery [facility]osciences Faculty Member [address] [place] [address] Kiel Vasquez MD [address] [place] [address] Left atrial appendage closure percutaneous 07/28/2024 8:30 AM CHANNELER OUTSOLE Office Visit [facility] Oncology and Hematology - [place] [address] [facility] 200 [place] [address] Nahid Hickman MD [address] [facility] [address] [place] [address] 09/09/2024 1:00 PM CDT Office Visit [facility] Heart and Vascular At [address] 2014 [place] [address] Kiel Vasquez MD [address] [place] [address] 2014 [place] [address] 12/16/2024 11:00 AM CDT Office Visit [facility] HEART AND VASCULAR EP AT [address] [place] [address] Demetrius Bowling DNP [address] [place] [address] 2014 [place] [address] 02/05/2025 10:45 AM CDT Telephone Check Up [facility] Heart and Vascular At [address] 2014 [place] [address] 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 FNP [address] [place] [address] documented as of this encounter Visit Diagnoses Not on filedocumented in this encounter Care Teams Chief Dispatcher Relationship Specialty Start Date End Date Aliza Bain MD [address] [place] [address] PCP - General Family Practice 11/22/21 documented as of this encounter
--- OUTSIDE RECORDS SUMMARY | 2024-07-01 00:42 | XMS_ITS | Encounter Summary ---
Author Organization [facility] Address [address] [place] [address] Care Team Providers Care Internet Marketing Specialist Name Role Phone Aliza Bain MD Primary Care Provider Encounter Details Date Type Department Care Team (Late st Contact Info) Description 06/01/2023 External Device Data STL ABSTRACTION Provider, Abstract [...] Contact Info) Description 2024 11:00 AM SENIOR VICE PRESIDENT AND CHIEF INFORMATION OFFICER Appointment [facility] [address] [place] [address] 07/21/2024 9:45 AM SENIOR VICE PRESIDENT AND CHIEF INFORMATION OFFICER Appointment [facility] Trailer Assembler [address] [place] [address] Kiel Vasquez MD [address] [place] [address] 07/21/2024 9:53 AM SENIOR VICE PRESIDENT AND CHIEF INFORMATION OFFICER Hospital Encounter [facility] Trailer Assembler [address] [place] [address] Kiel Vasquez MD [address] [place] [address] Jesse Lackey-shirley 07/21/2024 9:53 AM SENIOR VICE PRESIDENT AND CHIEF INFORMATION OFFICER - 07/21/2024 11:46 AM SENIOR VICE PRESIDENT AND CHIEF INFORMATION OFFICER Surgery [facility] Trailer Assembler [address] [place] [address] Kiel Vasquez MD [address] [place] [address] Left atrial appendage closure percutaneous 07/28/2024 8:30 AM SENIOR VICE PRESIDENT AND CHIEF INFORMATION OFFICER Office Visit [facility] Oncology and Hematology - [place] [address] [facility] 200 [place] [address] Nahid Hickman MD [address] [facility] [address] [place] [address] 09/09/2024 1:00 PM CDT Office Visit [facility] Heart and Vascular At [address] 2014 [place] [address] Kiel Vasquez MD [address] [place] [address] 2014 [place] [address] 12/16/2024 11:00 AM CDT Office Visit [facility] HEART AND VASCULAR EP AT [address] [place] [address] Demetrius Bowling DNP [address] [place] [address] 2014 [place] [address] 02/05/2025 10:45 AM CDT Telephone Check Up [facility] Heart and Vascular At [address] 2014 [place] [address] 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 FNP [address] [place] [address] documented as of this encounter Visit Diagnoses Not on filedocumented in this encounter Care Teams Internet Marketing Specialist Relationship Specialty Start Date End Date Aliza Bain MD [address] [place] [address] PCP - General Family Practice 11/22/21 documented as of this encounter
--- OUTSIDE RECORDS SUMMARY | 2024-07-01 00:42 | XMS_ITS | Encounter Summary ---
Author Organization [facility] Address [address] [place] [address] Care Team Providers Care Human Resources Associate Name Role Phone Aliza Bain MD Primary Care Provider Encounter Details Date Type Department Care Team (Late st Contact Info) Description 07/15/2023 External Device Data STL ABSTRACTION Provider, Abstract [...] st Contact Info) Description 2024 11:00 AM PILE TRIMMER Appointment [facility] [address] [place] [address] 07/21/2024 9:45 AM PILE TRIMMER App[facility] [address] [place] [address] Kiel Vasquez MD [address] [place] [address] 07/21/2024 9:53 AM PILE TRIMMER Hospital Encounter [facility] [address] [place] [address] Kiel Vasquez MD [address] [place] [address] Jesse Lackey-shirley 07/21/2024 9:53 AM PILE TRIMMER - 07/21/2024 11:46 AM PILE TRIMMER Surgery [facility] [address] [place] [address] Kiel Vasquez MD [address] [place] [address] Left atrial appendage closure percutaneous 07/28/2024 8:30 AM PILE TRIMMER Office Visit [facility] Oncology and Hematology - [place] [address] [facility] 200 [place] [address] Nahid Hickman MD [address] [facility] [address] [place] [address] 09/09/2024 1:00 PM CDT Office Visit [facility] Heart and Vascular At [address] [place] [address] Kiel Vasquez MD [address] [place] [address] 2014 [place] [address] 12/16/2024 11:00 AM CDT Office Visit [facility] HEART AND VASCULAR EP AT [address] [place] [address] Demetrius Bowling DNP [address] [place] [address] 2014 [place] [address] 02/05/2025 10:45 AM CDT Telephone Check Up [facility] Heart and Vascular At [address] [place] [address] 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 FNP [address] [place] [address] documented as of this encounter Visit Diagnoses Not on filedocumented in this encounter Care Teams Human Resources Associate Relationship Specialty Start Date End Date Aliza Bain MD [address] [place] [phone] PCP - General Family Practice 11/22/21 documented as of this encounter
--- OUTSIDE RECORDS SUMMARY | 2024-07-01 00:42 | XMS_ITS | Encounter Summary ---
Author Organization [facility] Localler [facility] Address [address] [place] [address] Care Team Providers Care Guest House Manager Name Role Phone Aliza Bain MD Primary Care Provider Reason for Visit * Reason Comments Follow Up Encounter Details Date Type Department Care Team (Late st Contact Info) Description 12/04/2022 11:30 AM CDT Office Visit [facility] Oncology and Hematology - [place] [address] [facility] 200 [place] [address] Nahid Hickman MD [address] [facility] [address] [place] [address] Malignant neoplasm of right upper lobe of lung (Primary Dx) Social History Tobacco Use Types [...] Sign Reading Time Taken Comments Blood Pressure 158/57 12/04/2022 11:32 AM CDT Pulse 63 12/04/2022 11:31 AM CDT Temperature 36.2 ??C (97.2 ??F) 12/04/2022 11:31 AM C DT Respiratory Rate 10 12/04/2022 11:31 AM CDT Oxygen Saturation 99% 12/04/2022 11:31 AM CDT Inhaled Oxygen Concentration - - Weight 63.5 kg (140 lb) 12/04/2022 11:31 AM CDT Height - - Body Mass Index 24.8 11/30/2022 11:54 AM CDT documented in this encounter Progress Notes * Nahid Hickman MD - 12/04/2022 12:59 PM CDT HEMATOLOGY / ONCOLOGY PROGRESS NOTE Patient Identification: Name: Cassandra Martinez Age: 77 y.o. Sex: female : 1945 DIAGNOSIS T2 [...] to the office for follow-up visit. She denies any neuropathy. Denies any bone pain. Weight and appetite stable. Denies any chest pain and shortness of breath. No other new complaint. Review of system Constitutional: denies fevers, sweats, [...] lumps, bumps or rashes. 12 point review system was reviewed Objective: Vital signs in [...] creatinine 0.9 calcium 9.3 M spike 0.8 [place] lightchain 26.2 lambda light chain 97 Assessment: Plan: Patient Active Problem List Diagnosis [...] expression of 2%. Negative ALK gene rearrangement. Clinical she remains asymptomatic. CT chest done on November 27 showed no evidence of disease. We will repeat CT chest in 6 months. MGUS. Patient clinically remains asymptomatic. Serum protein electrophoresis showed stable M spike of 0.8 g/dL. We will repeat myeloma testing in 1 year. Anemia. Hemoglobin stable at 10.7. She will continue vitamin B12 500 mcg daily with iron 325 mg daily. A-fib. Status post ablation. She is asymptomatic. 12/04/2022 Nahid Hickman MD documented in this encounter Plan of Treatment Upcoming Encounters Date Type Department Care Team (Late st Contact Info) Description 2024 11:00 AM FURNITURE LUMBER PRODUCTION WORKER Appointment [facility] [address] [place] [address] 07/21/2024 9:45 AM FURNITURE LUMBER PRODUCTION WORKER Appointment [facility] Personal Banker [address] [place] [address] Kiel Vasquez MD [address] [facility] 2014 [place] [address] 07/21/2024 9:53 AM FURNITURE LUMBER PRODUCTION WORKER Hospital Encounter [facility] Personal Banker [address] [place] [address] Kiel Vasquez MD [address] [facility] 2014 [place] [address] Paroxysmal A-fib 07/21/2024 9:53 AM FURNITURE LUMBER PRODUCTION WORKER - 07/21/2024 11:46 AM FURNITURE LUMBER PRODUCTION WORKER Surgery [facility] Personal Banker [address] [place] [address] Kiel Vasquez MD [address] [facility] 2014 [place] [address] Left atrial appendage closure percutaneous 07/28/2024 8:30 AM FURNITURE LUMBER PRODUCTION WORKER Office Visit [facility] Oncology and Hematology [facility] [address] [place] [address] Nahid Hickman MD [address] [facility] [address] [place] [address] 09/09/2024 1:00 PM CDT Office Visit [facility] Heart and Vascular At [address] [place] [address] Kiel Vasquez MD [facility] 2014 [place] [address] 12/16/2024 11:00 AM CDT Office Visit [facility] HEART AND VASCULAR EP AT [address] [place] [address] Demetrius Bowling DNP [address] [place] [address] 2014 [place] [address] 02/05/2025 10:45 AM CDT Telephone Check Up [facility] Heart and Vascular At [address] [place] [address] 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, DEVELOPER EVANG[employer]IST [facility] [place] [address] documented as of this encounter Visit Diagnoses Diagnosis Malignant neoplasm of right upper lobe of lung- Primary Malignant neoplasm of upper lobe, bronchus or lung Paroxysmal atrial fibrillation- Primary Atrial fibrillation Paroxysmal A-fib Atrial fibrillation Paroxysmal A-fib Atrial fibrillation documented in this encounter Care Teams Guest House Manager Relationship Specialty Start Date End Date Aliza Bain MD [address] [place] [address] PCP - General Family Practice 11/22/21 documented as of this encounter
--- OUTSIDE RECORDS SUMMARY | 2024-07-01 00:42 | XMS_ITS | Encounter Summary ---
Author Organization [facility] Address [address] [place] [address] Care Team Providers Care Exchange Engineer Name Role Phone Aliza Bain MD Primary Care Provider Reason for Visit * Reason Comments Follow Up 1 year f/u Encounter Details Date Type Department Care Team (Late st Contact Info) Description 11/30/2022 11:30 AM CDT Office Visit [facility] [address] [facility] [address] [place] [address] Destiny Tyson, MASTER TAX ADVISOR [address] [place] [address] [address] [place] [address] Paroxysmal atrial fibrillation (Primary Dx); Benign hypertension; Carotid artery disease, unspecified laterality, unspecified type Social History Tobacco Use Types Packs/Day Years [...] Sign Reading Time Taken Comments Blood Pressure 141/84 11/30/2022 11:54 AM CDT Pulse 75 11/30/2022 11:54 AM CDT Temperature - - Respiratory Rate - - Oxygen Saturation 97% 11/30/2022 11: 54 AM CDT Inhaled Oxygen Concentration - - Weight 65.7 kg (144 lb 14.4 oz) 023 11:54 AM CDT Height 160 cm (5' 3 ) 11/30/2022 11:54 AM CDT Body Mass Index 25.67 11/30/2022 11:54 AM CDT documented in this encounter Progress Notes * Cecily Aceevs M - 11/30/2022 11:59 AM CDT 1 year F/u SOB with exertion, no other symptoms. * Destiny Tyson NP - 11/30/2022 11:30 AM CDT Electrophysiology Office Visit History of Present Illness: Cassandra Martinez is a 77 y.o. female who is seen in follow up for paroxysmal atrial fibrillation status post PVI/CTI on 08/[address] Woods. Past medical history notable for hypertension, non-small cell lung cancer, myasthenia gravis, carotid artery stenosis, and persistent atrial fibrillation. She was diagnosed with atrial fibrillation when she underwent lung resection in August 2020. Her symptoms have progressed ever since and now she reports a great deal of fatigue, shortness of breath, and lightheadedness. Underwent PVI/CTI on August 16, [address] Woods. Overall feeling well. No recurrent AF that she is aware of. Denies CP, palpitations, dizziness, syncope or SOB. Has issues walking due to sciatica. Objective: Current Outpatient Medications on File Prior to Visit Medication Sig Dispense Refill apixaban (Eliquis) 5 mg tablet Take 1 [...] D3, (VITAMIN D3 ORAL) Take by mouth. hydroCHLOROthiazide 25 mg tablet TAKE 1 TABLET BY MOUTH EVERY DAY olmesartan (BENICAR) 40 mg tablet Take 40 mg by mouth daily. Medication bottle is Olmesartan Medoxomil 40 MG tab1 tab by mouth daily No current facility-administered medications on file prior to visit. Past Medical History: Diagnosis Date Arthritis Dyspnea on exertion GERD (gastroesophageal reflux disease) HTN (hypertension) Hx of degenerative disc disease Injury of back DDD Malignant neoplasm of lung Review of Systems: General: No weight loss or weight gain, energy level stable Skin: No rashes or eruptions, no bruising Lungs: No cough, shortness of breath, or wheezing Cardiac: See HPI GI: No nausea or vomiting, no abdominal pain or change in bowel habits : No dysuria, no hematuria Neurologic: No CVA/TIA symptoms All other ROS reviewed and are negative Physical Exam: There were no vitals taken for this visit. Wt Readings from Last 3 Encounters: 06/22/22 63 kg (139 lb) 06/05/22 65.2 kg (143 lb 12.8 oz) 12/15/21 66.3 kg (146 lb 3.2 oz) General: Well developed, well nourished in no acute distress Skin: No rashes or eruptions HEENT: Head is normocephalic, atraumatic, pupils equal and reactive to light and accommodation, sclerae anicteric, orthopharynx is clear Neck: No JVD Lungs: Respirations unlabored, clear to auscultation Heart: Regular rate and rhythm, no S3 or S4, no murmurs, gallops or rubs Abdomen: Soft, non-tender, non-distended. Normoactive bowel sounds. Extremities: No cyanosis, clubbing or edema. Peripheral pulses are 2+ and symmetric Neurologic: Awake, alert and oriented. Non focal. Psych: Mood appropriate. LABS Lab Results Component Value Date WBC 7.2 08/16/2021 HGB 10.2 (L) 08/16/2021 HGBPOC 10.0 (L) 08/16/2021 HGBPOC 10.0 (L) 08/16/2021 HGBPOC 10.0 (L) 08/16/2021 HGBPOC 10.0 (L) 08/16/2021 HCT 32.6 (L) 08/16/2021 HCTPOC 30 (L) 08/16/2021 PLT 224 08/16/2021 MCV 91.3 08/16/2021 Lab Results Component Value Date NA 143 08/16/2021 K 3.8 08/16/2021 CL 104 08/16/2021 CO2 25 08/16/2021 CA 9.7 08/16/2021 BUN 25 (H) 08/16/2021 CREAT 1.31 (H) 08/16/2021 GLUCOSE 112 (H) 08/16/2021 TOTALPROTEIN 7.9 06/30/2021 ALBUMIN 4.2 06/30/2021 BILITOTAL 0.4 06/30/2021 ALKPHOS 94 06/30/2021 AST 24 06/30/2021 ALT 9 06/30/2021 ANIONGAP 14 08/16/2021 Data: [id number] Score of 4 EKG: SR rate 62 Assessment: ICD-10-CM ICD-9-CM 1. Paroxysmal atrial fibrillation I48.0 427.31 2. Benign hypertension I10 401.1 3. Carotid artery disease, unspecified laterality, unspecified type I77.9 447.9 Plan: Presents for follow up regarding paroxysmal atrial fibrillation status post PVI/CTI on 08/[address] Woods. No recurrence that she is aware of. Overall doing well. Continue Eliquis 5 mg BID. Hypertension- well controlled CHF- compensated, follows with Dr. Vasquez Non-small cell lung cancer Myasthenia gravis Carotid artery stenosis- mild bilateral, follows with Dr. Vasquez FU in 12 months DON Alvarez Electrophysiology Nurse Practitioner documented in this encounter Procedure Notes * Destiny Tyson NP - 11/30/2022 12:14 PM CDTAssociated Order(s): EKG 12-LEAD Procedure(s): VA ECG ROUTINE ECG W/LEAST 12 LDS W/I&R Pre-Procedure Diagnose(s): Paroxysmal atrial fibrillation SR rate 62 documented in this encounter Plan of Treatment Upcoming Encounters Date Type Department Care Team (Late st Contact Info) Description 2024 11:00 AM R D MANAGER Appointment [facility] [address] [facility] [address] [place] [address] 07/21/2024 9:45 AM R D MANAGER Appointment [facility] Utility Assembler [address] [place] [address] Kiel Vasquez MD [address] [facility] [address] [place] [address] 07/21/2024 9:53 AM R D MANAGER Hospital Encounter [facility] [address] [place] [address] Kiel Vasquez MD [address] [facility] [address] [place] [address] Paroxysmal A-fib 07/21/2024 9:53 AM R D MANAGER - 07/21/2024 11:46 AM R D MANAGER Surgery [facility] Utility [employer] [address] [place] [address] Kiel Vasquez MD [address] [facility] [address] [place] [address] Left atrial appendage closure percutaneous 07/28/2024 8:30 AM R D MANAGER Office Visit [facility] Oncology and Hematology - [place] [address] [phone] Nahid Hickman MD [address] [address] 09/09/2024 1:00 PM CDT Office Visit [facility] Heart and Vascular At [address] [place] [address] Kiel Vasquez MD [facility] [address] [facility] [address] [place] [address] 12/16/2024 11:00 AM CDT Office Visit [facility] AT [address] [place] [address] Demetrius Bowling DNP [address] [facility] [address] [place] [address] 02/05/2025 10:45 AM CDT Telephone Check Up [facility] Heart and Vascular At [facility] [address] [facility] [address] [place] [address] 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 FNP [address] [place] [address] documented as of this encounter Procedures Procedure Name Priority Date/Time Associated Diagnosis Comments VA ECG ROUTINE ECG W/LEAST 12 LDS W/I&R Routine 11/30/2022 12:14 PM CDT Paroxysmal atrial fibrillation documented in this encounter Results * VA ECG ROUTINE ECG W/LEAST 12 LDS W/I&R (11/30/2022 12:14 PM CDT) Narrative [facility] - 11/30/2022 12:14 PM CDT Destiny Tyson NP ? 11/30/2022 12:19 PM SR rate 62 Procedure Note Destiny Tyson NP - 11/30/2022 12:14 PM CDT SR rate 62 Destiny Tyson NP ECG ORDERABLES [facility] CLIA #[id number] [facility] [address] [facility] [address] [place] [address] documented in this encounter Visit Diagnoses Diagnosis Paroxysmal atrial fibrillation- Primary Atrial fibrillation Benign hypertension Essential hypertension, benign Carotid artery disease, unspecified laterality, unspecified type Paroxysmal atrial fibrillation- Primary Atrial fibrillation Paroxysmal A-fib Atrial fibrillation Paroxysmal A-fib Atrial fibrillation documented in this encounter Care Teams Exchange Engineer Relationship Specialty Start Date End Date Aliza Bain MD [address] [place] [phone] PCP - General Family Practice 11/22/21 documented as of this encounter
--- OUTSIDE RECORDS SUMMARY | 2024-07-01 00:42 | XMS_ITS | Encounter Summary ---
Author Organization [facility] Address [address] [facility] Attn: Epic Prelude ADT STU POLK [address] Care Team Providers Care Noodle Maker Name Role Phone Aliza Bain MD Primary Care Provider Encounter Details Date Type Department Care Team (Latest Contact Info) Description 06/05/2022 Travel Social History Tobacco Use Types Packs/Day [...] Coronavirus/COVID-19? No / Unsure 06/05/2022 9:47 AM THREAD CHECKER documented as of this encounter Plan of Treatment Upcoming Encounters Date Type Department Care Team (Late st Contact Info) Description 2024 11:00 AM THREAD CHECKER Appointment [facility] S [address] [place] [address] 07/21/2024 9:45 AM THREAD CHECKER Appointment [facility] Chemical Strength Tester [address] [place] [phone] Kiel Vasquez MD [address] [facility] 2014 [place] [address] 07/21/2024 9:53 AM THREAD CHECKER Hospital Encounter [facility] Chemical Strength Tester [address] [place] [address] Kiel Vasquez MD [address] [facility] [address] [place] [address] Jesse Lackey-fib 07/21/2024 9:53 AM THREAD CHECKER - 07/21/2024 11:46 AM THREAD CHECKER Surgery [facility] Chemical Strength Tester [address] [place] [address] Kiel Vasquez MD [address] [place] [address] [address] [place] [address] Left atrial appendage closure percutaneous 07/28/2024 8:30 AM THREAD CHECKER Office Visit [facility] Oncology and Hematology - [place] [address] [facility] [address] [place] [address] Nahid Hickman MD [address] [facility] [address] [place] [address] 09/09/2024 1:00 PM CDT Office Visit [facility] Heart and Vascular At [address] 2014 [place] [address] Kiel Vasquez MD [address] [place] [address] [address] [place] [address] 12/16/2024 11:00 AM CDT Office Visit [facility] HEART AND VASCULAR EP AT [address] [place] [address] Demetrius Bowling DNP [address] [place] [address] 2014 [place] [address] 02/05/2025 10:45 AM CDT Telephone Check Up [facility] Heart and Vascular At [address] 2014 [place] [address] 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 FNP [address] [place] [phone] documented as of this encounter Visit Diagnoses Not on filedocumented in this encounter Care Teams Noodle Maker Relationship Specialty Start Date End Date Aliza Bain MD [address] [place] [phone] PCP - General Family Practice 11/22/21 documented as of this encounter
--- OUTSIDE RECORDS SUMMARY | 2024-07-01 00:42 | XMS_ITS | Encounter Summary ---
Author Organization [facility] Address [address] [place] [address] Care Team Providers Care Rayon Winder Name Role Phone Aliza Bain MD Primary [...] st Contact Info) Description 2024 11:00 AM MERCHANDISE WORKER Appointment [facility] [address] [place] [address] 07/21/2024 9:45 AM MERCHANDISE WORKER Appointment [facility] Software Engineer [employer] [address] [place] [address] Kiel Vasquez MD [address] [place] [address] 07/21/2024 9:53 AM MERCHANDISE WORKER Hospital Encounter [facility] Software Engineer [employer] [address] [place] [address] Kiel Vasquez MD [address] [place] [address] Jesse Lackey-shirley 07/21/2024 9:53 AM MERCHANDISE WORKER - 07/21/2024 11:46 AM MERCHANDISE WORKER Surgery [facility] Software Engineer [employer] [address] [place] [address] Kiel Vasquez MD [address] [place] [address] Left atrial appendage closure percutaneous 07/28/2024 8:30 AM MERCHANDISE WORKER Office Visit [facility] Oncology and Hematology - [place] [address] [facility] 200 [place] [address] Nahid Hickman MD [address] [facility] [address] [place] [address] 09/09/2024 1:00 PM CDT Office Visit [facility] Heart and Vascular At [address] 2014 [place] [address] Kiel Vasquez MD [address] [place] [address] 2014 [place] [address] 12/16/2024 11:00 AM CDT Office Visit [facility] HEART AND VASCULAR EP AT [address] [place] [address] Demetrius Bowling DNP [address] [place] [address] 2014 [place] [address] 02/05/2025 10:45 AM CDT Telephone Check Up [facility] Heart and Vascular At [address] [place] [address] 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 FNP [address] [place] [address] documented as of this encounter Visit Diagnoses Not on filedocumented in this encounter Care Teams Rayon Winder Relationship Specialty Start Date End Date Aliza Bain MD [address] [place] [address] PCP - General Family Practice 11/22/21 documented as of this encounter
--- OUTSIDE RECORDS SUMMARY | 2024-07-01 00:42 | XMS_ITS | Encounter Summary ---
Author Organization [facility] Major Aide [facility] Address [address] [place] [address] Care Team Providers Care Call Center Supervisor Name Role Phone Aliza Bain MD Primary Care Provider Encounter Details Date Type Department Care Team (Late st Contact Info) Description 06/01/[address] [facility] Oncology and Hematology - [place] [address] [place] [address] Jennifer Fong MGUS (monoclonal gammopathy [...] Coronavirus/COVID-19? No / Unsure 06/05/2022 9:47 AM CENTRAL SUPPLY ASSISTANT documented as of this encounter Plan of Treatment Upcoming Encounters Date Type Department Care Team (Late st Contact Info) Description 2024 11:00 AM CENTRAL SUPPLY ASSISTANT Appointment [facility] [address] [place] [address] 07/21/2024 9:45 AM CENTRAL SUPPLY ASSISTANT Appointment [facility] Director Intelligence Officer [address] [place] [address] Kiel Vasquez MD [address] [place] [address] 07/21/2024 9:53 AM CENTRAL SUPPLY ASSISTANT Hospital Encounter [facility] Director Intelligence Officer [address] [place] [address] Kiel Vasquez MD [address] [place] [address] Paroxysmal A-fib 07/21/2024 9:53 AM CENTRAL SUPPLY ASSISTANT - 07/21/2024 11:46 AM CENTRAL SUPPLY ASSISTANT Surgery [facility] Director Intelligence Officer [address] [place] [address] Kiel Vasquez MD [address] [place] [address] 2014 [place] [address] Left atrial appendage closure percutaneous 07/28/2024 8:30 AM CENTRAL SUPPLY ASSISTANT Office Visit [facility] Oncology and Hematology - [place] [address] [facility] 200 [place] [address] Nahid Hickman MD [address] [facility] [address] [place] [address] 09/09/2024 1:00 PM CDT Office Visit [facility] Heart and Vascular At [address] [place] [address] Kiel Vasquez MD [address] [place] [address] 2014 [place] [address] 12/16/2024 11:00 AM CDT Office Visit [facility] HEART AND VASCULAR EP AT [address] 2014 [place] [address] Demetrius Bowling DNP [address] [place] [address] 2014 [place] [address] 02/05/2025 10:45 AM CDT Telephone Check Up [facility] Heart and Vascular At [address] [place] [address] 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 FNP [address] [place] [phone] documented as of this encounter Visit Diagnoses Diagnosis MGUS (monoclonal gammopathy of unknown significance) Monoclonal paraproteinemia Paroxysmal atrial fibrillation- Primary Atrial fibrillation Paroxysmal A-fib Atrial fibrillation Paroxysmal A-fib Atrial fibrillation documented in this encounter Care Teams Call Center Supervisor Relationship Specialty Start Date End Date Aliza Bain MD [address] [place] [address] PCP - General Family Practice 11/22/21 documented as of this encounter
--- OUTSIDE RECORDS SUMMARY | 2024-07-01 00:42 | XMS_ITS | Encounter Summary ---
Author Organization [facility] Address [address] [place] [address] Care Team Providers Care Frame Straightener Name Role Phone Aliza Bain MD Primary Care Provider Reason for Referral * Echocardiography (Routine) - Authorized Specialty Diagnoses / Procedures Referred By Contac t Referred To Contact Diagnoses Chronic diastolic congestive heart failure Paroxysmal atrial fibrillation Carotid artery disease, unspecified laterality, unspecified type Procedures STRESS ECHO PHARMACO Kiel Vasquez MD [address] [facility] [address] [place] [address] [facility] Nuclear Cardiology [address] [place] [address] Referral ID Status Reason Start Date Expiration Date V isits Requested Visits Authorized [id number] Authorized 08/16/2023 09/15/2024 1 1 ACT CENTER REPRESENTATIVE Reason for Visit * Reason Onset Date Comments Test 08/15/2023 Encounter Details Date Type Department Care Team (Late st Contact Info) Description 08/15/2023 Telephone [facility] Heart and Vascular At [facility] [address] [facility] [address] [place] [address] Kiel Vasquez MD [address] [facility] 2014 [place] [address] Test Social History Tobacco Use Types Packs/Day Years [...] Telephone Encounter - Melanie Swenson RN - 08/16/2023 8:39 AM CST Images from the original note were not included. Kiel Vasquez MD Kiely, Sarah A, RN Caller: Unspecified (Yesterday, 2:59 PM) Lets have her update an event monitor, TTE, and a stress echo If symptoms are severe, needs to go to ER Spoke to pt on the phone, notified her of the above. Tests ordered, gave pt scheduling phone #. Pt verbalized understanding. ACT CENTER REPRESENTATIVE * Telephone Encounter - Melanie Swenson RN - 08/15/2023 3:08 PM CST Spoke to pt on the phone, she said today she woke up and felt nauseous and felt like she was going to pass out. HR was beating really fast. She said this was happening before and she mentioned it at the last OV on 07-31-23. She said Dr Vasquez advised pt to call back if symptoms keep happening. Please review and advise. See last OV note: Dyspnea - she suspects may be due to overmedication from mestinon -go back to normal dose of mestinon -call me if symptoms do not improve in 2-3 weeks Atrial fibrillation - [id number] = 4. PVI 2021 -Will continue rate control -On OAC with eliquis Chronic diastolic dysfunction- Euvolemic, well compensated -continue BP control with olmesartan, HCTZ -continue diuresis PRN Hypertension - BP well controlled. Will continue current medications. -Continue olmesartan, HCTZ PAD - carotid artery stenosis -follows with vascular -cont aspirin -check lipids ACT CENTER REPRESENTATIVE * Telephone Encounter - Karen Dodson - 08/15/2023 2:59 PM CONTACT CENTER REPRESENTATIVE Patient called stating she would like to do the heart test Dr Vasquez suggested, Patient isn't sure of the name of the test. Please discuss more with patient [phone]. Thank You. ACT CENTER REPRESENTATIVE documented in this encounter Plan of Treatment Upcoming Encounters Date Type Department Care Team (Late st Contact Info) Description 2024 11:00 AM CONTACT CENTER REPRESENTATIVE Appointment [facility] [address] [place] [phone] 07/21/2024 9:45 AM CONTACT CENTER REPRESENTATIVE Appointment [facility] [address] [place] [phone] Kiel Vasquez MD [address] [facility] 2014 [place] [address] 07/21/2024 9:53 AM CONTACT CENTER REPRESENTATIVE Hospital Encounter [facility] [address] [place] [address] Kiel Vasquez MD [address] [facility] 2014 [place] [address] Paroxysmal A-fib 07/21/2024 9:53 AM CONTACT CENTER REPRESENTATIVE - 07/21/2024 11:46 AM CONTACT CENTER REPRESENTATIVE Surgery [facility] [address] [place] [address] Kiel Vasquez MD [address] [facility] 2014 [place] [address] Left atrial appendage closure percutaneous 07/28/2024 8:30 AM CONTACT CENTER REPRESENTATIVE Office Visit [facility] Oncology and Hematology - [place] [address] [place] [address] 200 [place] [address] Nahid Hickman MD [address] [facility] [address] [place] [address] 09/09/2024 1:00 PM CDT Office Visit [facility] Heart and Vascular At [facility] [address] [facility] [address] [place] [address] Kiel Vasquez MD [address] [facility] 2014 [place] [address] 12/16/2024 11:00 AM CDT Office Visit [facility] [address] [facility] [address] [place] [address] Demetrius Bowling DNP [address] [facility] [address] [place] [address] 02/05/2025 10:45 AM CDT Telephone Check Up [facility] Heart and Vascular At [place] [address] [facility] [address] [place] [address] 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 FNP [address] [place] [address] Scheduled Orders Name Type Priority Associated Diagnoses Orde r Schedule STRESS ECHO PHARMACO Echocardiogram Routine Chronic diastolic congestive heart failure Paroxysmal atrial fibrillation Carotid artery disease, unspecified laterality, unspecified type 1 Occurrences starting 08/16/2023 until 10/14/2024 CARDIAC EVENT MONITOR Cardiac Services Routine Chronic diastolic congestive heart failure Paroxysmal atrial fibrillation Carotid artery disease, unspecified laterality, unspecified type Ordered: 08/16/2023 documented as of this encounter Visit Diagnoses Diagnosis Chronic diastolic congestive heart failure- Primary Chronic diastolic heart failure Paroxysmal atrial fibrillation Atrial fibrillation Carotid artery disease, unspecified laterality, unspecified type Paroxysmal atrial fibrillation- Primary Atrial fibrillation Paroxysmal A-fib Atrial fibrillation Paroxysmal A-fib Atrial fibrillation documented in this encounter Care Teams Frame Straightener Relationship Specialty Start Date End Date Aliza Bain MD [address] [place] [address] PCP - General Family Practice 11/22/21 documented as of this encounter
--- OUTSIDE RECORDS SUMMARY | 2024-07-01 00:42 | XMS_ITS | Encounter Summary ---
Author Organization [facility] Address [address] [place] [address] Care Team Providers Care Vp Product Management Name Role Phone Aliza Bain MD Primary Care Provider Encounter Details Date Type Department Care Team (Late st Contact Info) Description 05/28/2023 Orders Only [facility] Oncology and Hematology - [place] [address] [facility] 200 [place] [address] Nahid Hickman MD [address] [place] [address] Social History Tobacco Use Types [...] any clubs o r organizations such as mosque groups, unions, fraternal or athletic groups, or [...] st Contact Info) Description 2024 11:00 AM RACKER OCTAVE BOARD Appointment [facility] S [facility] Manjit [address] [place] [address] 07/21/2024 9:45 AM RACKER OCTAVE BOARD Appointment [facility] Employment Counselor [address] [place] [phone] Kiel Vasquez MD [address] [facility] 2014 [place] [address] 07/21/2024 9:53 AM RACKER OCTAVE BOARD Hospital Encounter [facility] Employment Counselor [address] [place] [address] Kiel Vasquez MD [address] [facility] 2014 [place] [address] Paroxysmal A-fib 07/21/2024 9:53 AM RACKER OCTAVE BOARD - 07/21/2024 11:46 AM RACKER OCTAVE BOARD Surgery [facility] Employment Counselor [address] [place] [phone] Kiel Vasquez MD [address] [place] [address] 2014 [place] [address] Left atrial appendage closure percutaneous 07/28/2024 8:30 AM RACKER OCTAVE BOARD Office Visit [facility] Oncology and Hematology - [place] 2227 [facility] 200 [place] [address] Nahid Hickman MD 2227 [facility] [address] [place] [address] 09/09/2024 1:00 PM CDT Office Visit [facility] Heart and Vascular At [address] 2014 [place] [address] Kiel Vasquez MD [address] [place] [address] 2014 [place] [address] 12/16/2024 11:00 AM CDT Office Visit [facility] HEART AND VASCULAR EP AT [address] 2014 [place] [address] Demetrius Bowling DNP [address] [place] [address] 2014 [place] [address] 02/05/2025 10:45 AM CDT Telephone Check Up [facility] Heart and Vascular At [address] 2014 [place] [address] 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 FNP [facility] [place] [address] documented as of this encounter Procedures Procedure Name Priority Date/Time Associated Diagnosis Comments CREATININE Routine 05/28/2023 1:06 [address] CT CHEST W CONTRAST Routine 05/28/2023 11:57 AM RACKER OCTAVE BOARD documented in this encounter Results * CREATININE (05/28/2023 1:06 PM RACKER OCTAVE BOARD) Blood Nahid Hickman MD CHEMISTRY ORDERABLES * CT CHEST W CONTRAST (05/28/2023 11:57 AM RACKER OCTAVE BOARD) Anatomical Region Laterality Modality Chest Other Nahid Hickman MD CT ORDERABLES documented in this encounter Visit Diagnoses Not on filedocumented in this encounter Care Teams Vp Product Management Relationship Specialty Start Date End Date Aliza Bain MD [address] [place] [address] PCP - General Family Practice 11/22/21 documented as of this encounter
--- OUTSIDE RECORDS SUMMARY | 2024-07-01 00:42 | XMS_ITS | Encounter Summary ---
Author Organization [facility] Address [address] [place] [address] Care Team Providers Care Electric Motor Repairman Name Role Phone Aliza Bain MD Primary Care Provider Reason for Visit * Reason Onset Date Comments Medication Question 02/27/2023 Encounter Details Date Type Department Care Team (Late st Contact Info) Description 02/27/2023 Telephone [facility] Heart and Vascular At [place] [address] [facility] [address] [place] [address] Kiel Vasquez MD [address] [place] [address] 2014 [place] [address] Medication Question Social History Tobacco [...] and Family Not on file 07/29/2020 Attends [facility] Not on file 07/29 Do you [...] Telephone Encounter - Melanie Swenson RN - 02/27/2023 3:47 PM CDT Spoke to pt on the phone, I gave her suggestions to try the [employer] website or [employer] for coupon cards. Pt verbalized understanding. * Telephone Encounter - Valarie Díaz - 02/27/2023 3:30 PM CDT Patient would like to speak to the nurse about the possibility of cutting back on her Eliquis dosage and/or switching medications to something less costly. Please call [phone]. Thank you. documented in this encounter Plan of Treatment Upcoming Encounters Date Type Department Care Team (Late st Contact Info) Description 2024 11:00 AM SUPERVISOR FINISHING Appointment [facility] [address] [place] [phone] 07/21/2024 9:45 AM SUPERVISOR FINISHING Appointment [facility] Hip Hop Dancer [address] [place] [phone] Kiel Vasquez MD [address] [facility] 2014 [place] [phone] 07/21/2024 9:53 AM SUPERVISOR FINISHING Hospital Encounter [facility] Hip Hop Dancer [address] [place] [phone] Kiel Vasquez MD [address] [facility] 2014 [place] [phone] Paroxysmal A-fib 07/21/2024 9:53 AM SUPERVISOR FINISHING - 07/21/2024 11:46 AM SUPERVISOR FINISHING Surgery [facility] Hip Hop Dancer [address] [place] [address] Kiel Vasquez MD [address] [facility] 2014 [place] [phone] Left atrial appendage closure percutaneous 07/28/2024 8:30 AM SUPERVISOR FINISHING Office Visit [facility] Oncology and Hematology - [place] [address] [phone] Nahid Hickman MD [address] [facility] [address] [place] [address] 09/09/2024 1:00 PM CDT Office Visit [facility] Heart and Vascular At [facility] [address] [facility] [address] [place] [address] Kiel Vasquez MD [address] [facility] 2014 [place] [address] 12/16/2024 11:00 AM CDT Office Visit [facility] HEART AND VASCULAR EP AT [place] [address] [facility] [address] [place] [address] Demetrius Bowling DNP [address] [facility] 2014 [place] [address] 02/05/2025 10:45 AM CDT Telephone Check Up [facility] Heart and Vascular At [address] [place] [address] 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, CREW MESS ATTENDANT [address] [place] [address] documented as of this encounter Visit Diagnoses Not on filedocumented in this encounter Care Teams Electric Motor Repairman Relationship Specialty Start Date End Date Aliza Bain MD [address] [place] [address] PCP - General Family Practice 11/22/21 documented as of this encounter
--- OUTSIDE RECORDS SUMMARY | 2024-07-01 00:42 | XMS_ITS | Encounter Summary ---
Author Organization [facility] Address [address] [facility] Attn: Epic Prelude ADT STU [place] [address] Care Team Providers Care Community Mental Health Worker Name Role Phone Aliza Bain MD Primary Care Provider Encounter Details Date Type Department Care Team (Latest Contact Info) Description 06/22/2022 Travel Social History Tobacco Use Types Packs/Day [...] any clubs o r organizations such as restorationist groups, unions, fraternal or athletic groups, or [...] suspected to have Coronavirus/COVID-19? No / Unsure 06/22/2022 12:44 PM CITRIX ARCHITECT documented as of this encounter Plan of Treatment Upcoming Encounters Date Type Department Care Team (Late st Contact Info) Description 2024 11:00 AM CITRIX ARCHITECT Appointment [facility] S [address] Manjit [address] [place] [address] 07/21/2024 9:45 AM CITRIX ARCHITECT Appointment [facility] Emblem Fuser Tender [address] [place] [phone] Kiel Vasquez MD [address] [facility] 2014 [place] [address] 07/21/2024 9:53 AM CITRIX ARCHITECT Hospital Encounter [facility] Emblem Fuser Tender [address] [place] [address] Kiel Vasquez MD [address] [facility] 2014 [place] [address] Jesse Lackey-fib 07/21/2024 9:53 AM CITRIX ARCHITECT - 07/21/2024 11:46 AM CITRIX ARCHITECT Surgery [facility] Emblem Fuser Tender [address] [place] [address] Kiel Vasquez MD [address] [place] [address] 2014 [place] [address] Left atrial appendage closure percutaneous 07/28/2024 8:30 AM CITRIX ARCHITECT Office Visit [facility] Oncology and Hematology - [place] [address] [facility] 200 [place] [address] Nahid Hickman MD 2227 [facility] [address] [place] [address] 09/09/2024 1:00 PM CDT Office Visit [facility] Heart and Vascular At [address] 2014 [place] [address] Kiel Vasquez MD [address] [place] [address] 2014 [place] [address] 12/16/2024 11:00 AM CDT Office Visit [facility] HEART AND VASCULAR EP AT [address] 2014 [place] [address] Demetrius Bowling DNP [address] [place] [address] 2014 [place] [address] 02/05/2025 10:45 AM CDT Telephone Check Up [facility] Heart and Vascular At [address] 2014 [place] [address] 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 FNP [address] [place] [phone] documented as of this encounter Visit Diagnoses Not on filedocumented in this encounter Care Teams Community Mental Health Worker Relationship Specialty Start Date End Date Aliza Bain MD [address] [place] [phone] PCP - General Family Practice 11/22/21 documented as of this encounter
--- OUTSIDE RECORDS SUMMARY | 2024-07-01 00:42 | XMS_ITS | Encounter Summary ---
Author Organization [facility] Address [address] [place] [address] Care Team Providers Care Speech And Language Clinician Name Role Phone Aliza Bain MD Primary Care Provider Encounter Details Date Type Department Care Team (Late st Contact Info) Description 08/23/2022 Abstract [facility] Heart and Vascular At [address] [place] [address] Kiel Vasquez MD [address] [place] [address] 2014 [place] [address] Social History Tobacco Use Types [...] as of this encounter Progress Notes * Graham Deras - 08/23/2022 2:35 PM CST Surgical Clearance(fax confirmation) NDARY SCHOOL TEACHER LIBRARIAN documented in this encounter Plan of Treatment Upcoming Encounters Date Type Department Care Team (Late st Contact Info) Description 2024 11:00 AM SECONDARY SCHOOL TEACHER LIBRARIAN Appointment [facility] S Nicanor Manjitas [address] [place] [phone] 07/21/2024 9:45 AM SECONDARY SCHOOL TEACHER LIBRARIAN Appointment [facility] Instructional Materials Director [address] [place] [address] Kiel Vasquez MD [address] San[address] 2014 [place] [address] 07/21/2024 9:53 AM SECONDARY SCHOOL TEACHER LIBRARIAN Hospital Encounter [facility] Instructional Materials Director [address] [place] [address] Kiel Vasquez MD [address] [facility] 2014 [place] [address] Paroxysmal A-fib 07/21/2024 9:53 AM SECONDARY SCHOOL TEACHER LIBRARIAN - 07/21/2024 11:46 AM SECONDARY SCHOOL TEACHER LIBRARIAN Surgery [facility] Instructional Materials Director [place] [address] Kiel Vasquez MD [facility] S [facility] 2014 [place] [address] Left atrial appendage closure percutaneous 07/28/2024 8:30 AM SECONDARY SCHOOL TEACHER LIBRARIAN Office Visit [facility] Oncology and Hematology - [place] 2227 [facility] 200 [place] [address] Nahid Hickman MD 2227 [facility] [address] [place] [address] 09/09/2024 1:00 PM CDT Office Visit [facility] Heart and Vascular At [address] [place] [address] Kiel Vasquez MD [address] [place] [address] 2014 [place] [address] 12/16/2024 11:00 AM CDT Office Visit [facility] HEART AND VASCULAR EP AT [address] [place] [address] Demetrius Bowling DNP [address] [place] [address] 2014 [place] [address] 02/05/2025 10:45 AM CDT Telephone Check Up [facility] Heart and Vascular At [address] [place] [address] 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 FNP [address] [place] [address] documented as of this encounter Visit Diagnoses Not on filedocumented in this encounter Care Teams Speech And Language Clinician Relationship Specialty Start Date End Date Aliza Bain MD [address] [place] [address] PCP - General Family Practice 11/22/21 documented as of this encounter
--- OUTSIDE RECORDS SUMMARY | 2024-07-01 00:42 | XMS_ITS | Encounter Summary ---
Author Organization [facility] Address 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, Carotid artery stenosis, Prior tobacco abuse Encounter Details Date Type Department Care Team (Late st Contact Info) Description 07/31/2023 1:30 PM TEST SPECIALIST Office Visit [facility] Heart and Vascular At [address] [place] [address] Kiel Vasquez MD [address] [place] [address] Rd Sanjeev 2014 [place] [address] Paroxysmal atrial fibrillation (Primary Dx); Carotid artery disease, unspecified laterality, unspecified type; Chronic diastolic dysfunction; Benign hypertension Social History Tobacco Use Types [...] and Family Not on file 07/29/2020 Attends [employer] Not on file 07/29 Do you belong to any clubs o r organizations such as scientology groups, unions, fraternal or athletic groups, or [...] Sign Reading Time Taken Comments Blood Pressure 130/52 07/31/2023 1:24 PM TEST SPECIALIST Pulse 77 07/31/2023 1:24 PM TEST SPECIALIST Temperature - - Respiratory Rate - - Oxygen Saturation 94% 07/31/2023 1:24 PM TEST SPECIALIST Inhaled Oxygen Concentration - - Weight 62.1 kg (137 lb) 07/31/2023 1:24 PM TEST SPECIALIST Height 160 cm (5' 3 ) 07/31/2023 1:24 PM TEST SPECIALIST Body Mass Index 24.27 07/31/2023 1:24 PM TEST SPECIALIST documented in this encounter Progress Notes * Kiel Vasquez MD - 07/31/2023 1:30 PM CST [facility] Heart and Vascular Primary Care Physician: Aliza Bain MD Problem List #. afib #. HTN #. 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 Carotid artery stenosis #. Prior tobacco abuse History Of Present Illness Cassandra Martinez is a delightful 78 y.o. female with the above mentioned medical problems. Since her last visit she has felt well. She is fairly active and does work around her house and yard. She has had some non specific light headedness and dyspnea the past week or so. She realized thatshe has been taking a double dose of her mestinonin which she thinks may be causing her symptoms. No CP No light-headedness or syncope. Taking meds. No bleeding or neuro symptoms. Weight similar to recent past. Has 2 children, 3 grand children, 3 great grand children in [facility]. Past Medical History Past Medical History: Diagnosis Date Arthritis Dyspnea on exertion GERD (gastroesophageal reflux disease) HTN (hypertension) Hx of degenerative disc disease Injury of back DDD Malignant neoplasm of lung Family History Family History Problem Relation Name Age of Onset Heart Disease Father Heart Disease Mother Stroke Sister Asthma Sister Social History reports that she quit smoking about 23 years ago. Her smoking use included cigarettes. She started smoking about 63 years ago. She has a 20 pack-year smoking history. She has never used smokeless tobacco. She reports current alcohol use. She reports that she does not use drugs. Review of Systems See HPI Physical Exam Vitals: 07/31/23 1324 BP: 130/52 Pulse: 77 SpO2: 94% Weight: 62.1 kg (137 lb) Height: 5' 3 (1.6 m) General: no distress, oriented, looks well CV: normal neck veins, normal auscultated S1/2, no extra heart sounds or gallops, no murmurs Lungs: clear to auscultation bilaterally, no wheezes, rales, rhonchi Ext: no edema, warm, pulses intact Laboratory Data No results found for this visit on 07/31/23 (from the past 24 hour(s)). Lab Results [...] 06:02 AM ANIONGAP 14 08/16/2021 06:02 AM ECG #. afib Non-Invasive Testing #. 2020 event monitor - afib #. 2020 holter - 14 additional autotriggered/asympotmatic transmissions revealing atrial fibrillation #. 2021 MPI - no ischemia #. 2021 TTE - EF normal, DD, no VHD Cardiac Catheterization #. n/a Impression/Plan Cassandra Martinez is a delightful 78 y.o. female with the below cardiac diagnoses who presents for eval Dyspnea - she suspects may be due to overmedication from mestinon -go back to normal dose of mestinon -call me if symptoms do not improve in 2-3 weeks Atrial fibrillation - [id number] = 4. PVI 2021 -Will continue rate control -On OAC with eliquis Chronic diastolic dysfunction- Euvolemic, well compensated -continue BP control with olmesartan, HCTZ -continue diuresis PRN Hypertension - BP well controlled. Will continue current medications. -Continue olmesartan, HCTZ PAD - carotid artery stenosis -follows with vascular -cont aspirin -check lipids RTC 1-2 months * diet, exercise, and [...] any questions or concerns. Kiel Vasquez MD [facility] - Heart and Vascular General, Interventional, and Structural Cardiology Vascular Medicine and Intervention [address] [facility] [address] [place] [address] Office Office Medications Current Outpatient Medications: pyRIDostigmine (MESTINON) 60 mg tablet, Take 60 mg by mouth 3 times daily., Disp: , Rfl: apixaban (Eliquis) 5 mg tablet, Take 1 Tablet (5 mg) by mouth 2 times daily., Disp: 180 Tablet, Rfl: 3 pantoprazole (PROTONIX) 20 mg Tablet, Delayed Release (E.C.), Take 20 mg by mouth 2 times daily., Disp: , Rfl: cyanocobalamin (VITAMIN B-12) 100 mcg tablet, Take 100 mcg by mouth daily., Disp: , Rfl: aspirin (ECOTRIN EC) 81 mg Tablet, Delayed Release (E.C.), Take 81 mg by mouth daily., Disp: , Rfl: cholecalciferol, vitamin D3, (VITAMIN D3 ORAL), Take by mouth., Disp: , Rfl: hydroCHLOROthiazide 25 mg tablet, TAKE 1 TABLET BY MOUTH EVERY DAY, Disp: , Rfl: olmesartan (BENICAR) 40 mg tablet, Take 40 mg by mouth daily. Medication bottle is Olmesartan Medoxomil 40 MG tab1 tab by mouth daily, Disp: , Rfl: acetaminophen-codeine (TYLENOL #3) 300-30 mg tablet, Take 1 Tablet by mouth every 6 hours as needed. 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 SOB with exertion. Has episodes where she will go into a cold sweat, SOB, felt nauseous, lips felt numb, pressure near sternum. SPECIALIST documented in this encounter Miscellaneous Notes * Patient Instructions - Kiel Vasquez MD - 07/31/2023 1:58 PM TEST SPECIALIST 1) check blood work 2) return in 1-2 months SPECIALIST documented in this encounter Plan of Treatment Upcoming Encounters Date Type Department Care Team (Late st Contact Info) Description 2024 11:00 AM TEST SPECIALIST Appointment [facility] ER S [facility] Manjit [address] [place] [address] 07/21/2024 9:45 AM TEST SPECIALIST Appointment [facility] Teacher Of Family And Consumer Science [address] [place] [address] Kiel Vasquez MD [address] [facility] 2014 [place] [address] 07/21/2024 9:53 AM TEST SPECIALIST Hospital Encounter [facility] Teacher Of Family And Consumer Science [address] [place] [address] Kiel Vasquez MD [address] [facility] [address] [place] [address] Paroxysmal A-fib 07/21/2024 9:53 AM TEST SPECIALIST - 07/21/2024 11:46 AM TEST SPECIALIST Surgery [facility] Teacher Of Family And Consumer Science [address] [place] [phone] Kiel Vasquez MD [address] [place] [address] 2014 [place] [address] Left atrial appendage closure percutaneous 07/28/2024 8:30 AM TEST SPECIALIST Office Visit [facility] Oncology and Hematology - [place] [address] [facility] 200 [place] [address] Nahid Hickman MD [address] [facility] [address] [place] [address] 09/09/2024 1:00 PM CDT Office Visit [facility] Heart and Vascular At [address] [place] [address] Kiel Vasquez MD [address] [place] [address] 2014 [place] [address] 12/16/2024 11:00 AM CDT Office Visit [facility] HEART AND VASCULAR EP AT [address] [place] [address] Demetrius Bowling DNP [address] [place] [address] 2014 [place] [address] 02/05/2025 10:45 AM CDT Telephone Check Up [facility] Heart and Vascular At [address] [place] [address] 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 FNP [address] [place] [phone] Scheduled Orders Name Type Priority Associated Diagnoses Orde r Schedule LIPID PANEL Lab Routine Carotid artery disease, unspecified laterality, unspecified type Benign hypertension Expected: 07/31/2023, Expires: 07/30/2024 documented as of this encounter Visit Diagnoses Diagnosis Paroxysmal atrial fibrillation- Primary Atrial fibrillation Carotid artery disease, unspecified laterality, unspecified type Chronic diastolic dysfunction Chronic diastolic heart failure Benign hypertension Essential hypertension, benign Paroxysmal atrial fibrillation- Primary Atrial fibrillation Paroxysmal A-fib Atrial fibrillation Paroxysmal A-fib Atrial fibrillation documented in this encounter Care Teams Guide Escort Relationship Specialty Start Date End Date Aliza Bain MD [address] [place] [address] PCP - General Family Practice 11/22/21 documented as of this encounter
--- OUTSIDE RECORDS SUMMARY | 2024-07-01 00:42 | XMS_ITS | Encounter Summary ---
Author Organization [facility] [employer] [facility] Address [address] [place] [address] Care Team Providers Care Veneer Sorter Name Role Phone Aliza Bain MD Primary Care Provider Encounter Details Date Type Department Care Team (Late st Contact Info) Description 05/29/2022 Orders Only [facility] Oncology and Hematology - [place] [address] [place] [phone] Jennifer Fong Chronic anemia Social History Tobacco Use Types [...] st Contact Info) Description 2024 11:00 AM BIOMEDICAL MANAGER Appointment [facility] [address] [place] [address] 07/21/2024 9:45 AM BIOMEDICAL MANAGER Appointment [facility] Drag Saw[address] [place] [address] Kiel Vasquez MD [address] [email or web address] [address] [place] [address] 07/21/2024 9:53 AM BIOMEDICAL MANAGER Hospital Encounter [facility] Drag [address] [place] [address] Kiel Vasquez MD [address] [facility] [[email or web address] [address] [place] [address] Jesse Lackey-fib 07/21/2024 9:53 AM BIOMEDICAL MANAGER - 07/21/2024 11:46 AM BIOMEDICAL MANAGER Surgery [facility] Drag Sawyer [address] [place] [address] Kiel Vasquez MD [address] [place] [address] 2014 [place] [address] Left atrial appendage closure percutaneous 07/28/2024 8:30 AM BIOMEDICAL MANAGER Office Visit [facility] Oncology and Hematology - [place] 2227 [facility] 200 [place] [address] Nahid Hickman MD 2227 [facility] [address] [place] [address] 09/09/2024 1:00 PM CDT Office Visit [facility] Heart and Vascular At [address] 2014 [place] [address] Kiel Vasquez MD [address] [place] [address] 2014 [place] [address] 12/16/2024 11:00 AM CDT Office Visit [facility] HEART AND VASCULAR EP AT [address] 2014 [place] [address] Demetrius Bowling DNP [address] [place] [address] 2014 [place] [address] 02/05/2025 10:45 AM CDT Telephone Check Up [facility] Heart and Vascular At [address] 2014 [place] [address] 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 FNP [address] [place] [phone] documented as of this encounter Visit Diagnoses Diagnosis Chronic anemia Anemia, unspecified Paroxysmal atrial fibrillation- Primary Atrial fibrillation Paroxysmal A-fib Atrial fibrillation Paroxysmal A-fib Atrial fibrillation documented in this encounter Care Teams Veneer Sorter Relationship Specialty Start Date End Date Aliza Bain MD [address] [place] [address] PCP - General Family Practice 11/22/21 documented as of this encounter
--- OUTSIDE RECORDS SUMMARY | 2024-07-01 00:42 | XMS_ITS | Encounter Summary ---
Author Organization [facility] [employer] [facility] Address [address] [place] [address] Care Team Providers Care Cosmetics Machine Operator Name Role Phone Aliza Bain MD Primary Care Provider Encounter Details Date Type Department Care Team (Late st Contact Info) Description 05/30/2022 Orders Only [facility] Oncology and Hematology - [place] [address] [place] [phone] Jennifer Fong Chronic anemia Social History Tobacco [...] st Contact Info) Description 2024 11:00 AM JUKE BOX MECHANIC Appointment [facility] [address] [place] [address] 07/21/2024 9:45 AM JUKE BOX MECHANIC Appointment [facility] Safety Risk Lead [address] [place] [address] Kiel Vasquez MD [address] [facility] 2014 [place] [address] 07/21/2024 9:53 AM JUKE BOX MECHANIC Hospital Encounter [facility] Safety Risk Lead [address] [place] [address] Kiel Vasquez MD [address] [facility] 2014 [place] [address] Jesse Lackey-fib 07/21/2024 9:53 AM JUKE BOX MECHANIC - 07/21/2024 11:46 AM JUKE BOX MECHANIC Surgery [facility] Safety Risk Lead [address] [place] [address] Kiel Vasquez MD [address] [place] [address] 2014 [place] [address] Left atrial appendage closure percutaneous 07/28/2024 8:30 AM JUKE BOX MECHANIC Office Visit [facility] Oncology and Hematology - [place] 2227 [facility] 200 [place] [address] Nahid Hickman MD 2227 [facility] [address] [place] [address] 09/09/2024 1:00 PM CDT Office Visit [facility] Heart and Vascular At [address] 2014 [place] [address] Kiel Vasquez MD [address] [place] [address] 2014 [place] [address] 12/16/2024 11:00 AM CDT Office Visit [facility] HEART AND VASCULAR EP AT [address] 2014 [place] [address] Demetrius Bowling DNP [address] [place] [address] 2014 [place] [address] 02/05/2025 10:45 AM CDT Telephone Check Up [facility] Heart and Vascular At [address] 2014 [place] [address] 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 FNP [address] [place] [phone] documented as of this encounter Visit Diagnoses Diagnosis Chronic anemia Anemia, unspecified Paroxysmal atrial fibrillation- Primary Atrial fibrillation Paroxysmal A-fib Atrial fibrillation Paroxysmal A-fib Atrial fibrillation documented in this encounter Care Teams Cosmetics Machine Operator Relationship Specialty Start Date End Date Aliza Bain MD [address] [place] [address] PCP - General Family Practice 11/22/21 documented as of this encounter
--- OUTSIDE RECORDS SUMMARY | 2024-07-01 00:42 | XMS_ITS | Encounter Summary ---
Author Organization [facility] Address [address] [place] [address] Care Team Providers Care Braid Cutter Name Role Phone Aliza Bain MD Primary Care Provider Encounter Details Date Type Department Care Team (Late st Contact Info) Description 07/11/2023 External Device Data STL ABSTRACTION Provider, Abstract [...] and Family Not on file 07/29/2020 Attends Baptism Services Not on file 07/29 Do you [...] st Contact Info) Description 2024 11:00 AM ACCOUNTS SUPERVISOR Appointment [facility] [address] [place] [address] 07/21/2024 9:45 AM ACCOUNTS SUPERVISOR Appointment [facility] Postbed Stitcher [address] [place] [address] Kiel Vasquez MD [address] Sanjeev 2014 [place] [address] 07/21/2024 9:53 AM ACCOUNTS SUPERVISOR Hospital Encounter [facility] Postbed Stitcher [address] [place] [address] Kiel Vasquez MD [address]jeev 2014 [place] [address] Jesse Lackey-shirley 07/21/2024 9:53 AM ACCOUNTS SUPERVISOR - 07/21/2024 11:46 AM ACCOUNTS SUPERVISOR Surgery [facility] Postbed Stitcher [address] [place] [address] Kiel Vasquez MD [address]jeev 2014 [place] [address] Left atrial appendage closure percutaneous 07/28/2024 8:30 AM ACCOUNTS SUPERVISOR Office Visit [facility] Oncology and Hematology - [place] 2226 [facility] 200 [place] [address] Nahid Hickman MD 2227 [facility] [address] [place] [address] 09/09/2024 1:00 PM CDT Office Visit [facility] Heart and Vascular At [address] 2014 [place] [address] Kiel Vasquez MD [address] [place] [address] 2014 [place] [address] 12/16/2024 11:00 AM CDT Office Visit [facility] HEART AND VASCULAR EP AT [address] [place] [address] Demetrius Bowling DNP [address] [place] [address] 2014 [place] [address] 02/05/2025 10:45 AM CDT Telephone Check Up [facility] Heart and Vascular At [address] 2014 [place] [address] 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 FNP [address] [place] [address] documented as of this encounter Visit Diagnoses Not on filedocumented in this encounter Care Teams Braid Cutter Relationship Specialty Start Date End Date Aliza Bain MD [address] [place] [phone] PCP - General Family Practice 11/22/21 documented as of this encounter
--- OUTSIDE RECORDS SUMMARY | 2024-07-01 00:42 | XMS_ITS | Encounter Summary ---
Author Organization [facility] Address [address] [place] [address] Care Team Providers Care Paperboard Boxes Estimator Name Role Phone Aliza Bain MD Primary Care Provider Reason for Visit * Reason Onset Date Comments Medication Refill 05/23/2023 Encounter Details Date Type Department Care Team (Late st Contact Info) Description 05/23/[address] [facility] Heart and Vascular At [address] [place] [address] Kiel Vasquez MD [address] [place] [address] 2014 [place] [address] Social History Tobacco Use Types [...] encounter Miscellaneous Notes * Telephone Encounter - Tom Nino G - 05/23/2023 3:49 PM CST Comments: Date Last Seen: 01/23/23 with Kiel Vasquez MD Next Appointment: 07/31/23 with Kiel Vasquez MD Last BMP: Lab Results Component Value Date/Time NA 143 08/16/2021 06:02 AM K 3.8 08/16/2021 06:02 AM CL 104 08/16/2021 06:02 AM CO2 25 08/16/2021 06:02 AM CA 9.7 08/16/2021 06:02 AM BUN 25 (H) 08/16/2021 06:02 AM CREAT 1.31 (H) 08/16/2021 06:02 AM GLUCOSE 112 (H) 08/16/2021 06:02 AM ANIONGAP 14 08/16/2021 06:02 AM Last CMP: Lab Results Component Value Date/Time NA 143 08/16/2021 06:02 AM K 3.8 08/16/2021 06:02 AM CL 104 08/16/2021 06:02 AM CO2 25 08/16/2021 06:02 AM CA 9.7 08/16/2021 06:02 AM BUN 25 (H) 08/16/2021 06:02 AM CREAT 1.31 (H) 08/16/2021 06:02 AM GLUCOSE 112 (H) 08/16/2021 06:02 AM TOTALPROTEIN 7.9 06/30/2021 04:04 PM ALBUMIN 4.2 06/30/2021 04:04 PM BILITOTAL 0.4 06/30/2021 04:04 PM ALKPHOS 94 06/30/2021 04:04 PM AST 24 06/30/2021 04:04 PM ALT 9 06/30/2021 04:04 PM ANIONGAP 14 08/16/2021 06:02 AM Last 3 INR: Lab Results Component Value Date/Time INR 1.2 (H) 08/16/2021 06:02 AM INR 1.0 08/18/2020 03:06 PM PT 16.2 (H) 08/16/2021 06:02 AM PT 13.8 08/18/2020 03:06 PM Last Lipid Panel: No results found for: CHOLTOT , HDL , LDLCALC , LDLDIRECT , TRIGLYCERIDE Current Medication: Current Outpatient Medications Medication Sig Dispense Refill acetaminophen-codeine (TYLENOL #3) 300-30 mg tablet Take 1 Tablet by mouth every 6 hours as needed. apixaban (Eliquis) 5 mg tablet Take 1 [...] No current facility-administered medications for this visit. UCTION EXPEDITER documented in this encounter Plan of Treatment Upcoming Encounters Date Type Department Care Team (Late st Contact Info) Description 2024 11:00 AM PRODUCTION EXPEDITER Appointment [facility] S [facility] [address] [place] [address] 07/21/2024 9:45 AM PRODUCTION EXPEDITER Appointment [facility] Chief School Finance Officer [address] [place] [address] Kiel Vasquez MD [address] [facility] 2014 [place] [address] 07/21/2024 9:53 AM PRODUCTION EXPEDITER Hospital Encounter [facility] Chief School Finance Officer [address] [place] [address] Kiel Vasquez MD [address] [facility] 2014 [place] [address] Paroxysmal A-fib 07/21/2024 9:53 AM PRODUCTION EXPEDITER - 07/21/2024 11:46 AM PRODUCTION EXPEDITER Surgery [facility] Chief School Finance Officer [address] [place] [address] Kiel Vasquez MD [address] [facility] 2014 [place] [address] Left atrial appendage closure percutaneous 07/28/2024 8:30 AM PRODUCTION EXPEDITER Office Visit [facility] Oncology and Hematology - [place] [address] [place] [address] Nahid Hickman MD 2227 [facility] [address] [place] [address] 09/09/2024 1:00 PM CDT Office Visit [facility] Heart and Vascular At [address] 2014 [place] [address] Kiel Vasquez MD [address] [place] [address] 2014 [place] [address] 12/16/2024 11:00 AM CDT Office Visit [facility] HEART AND VASCULAR EP AT [address] [place] [address] Demetrius Bowling DNP [address] [place] [address] 2014 [place] [address] 02/05/2025 10:45 AM CDT Telephone Check Up [facility] Heart and Vascular At [address] 2014 [place] [address] 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 FNP [facility] [place] [address] documented as of this encounter Visit Diagnoses Not on filedocumented in this encounter Care Teams Paperboard Boxes Estimator Relationship Specialty Start Date End Date Aliza Bain MD [address] [place] [address] PCP - General Family Practice 11/22/21 documented as of this encounter
--- OUTSIDE RECORDS SUMMARY | 2024-07-01 00:42 | XMS_ITS | Encounter Summary ---
Author Organization [facility] Address [address] [place] [address] Care Team Providers Care Technical Support Specialist Name Role Phone Aliza Bain MD Primary Care Provider Reason for Visit * Reason Comments Follow Up 6 month fu on Paroxy smal atrial fibrillation. Encounter Details Date Type Department Care Team (Late st Contact Info) Description 06/22/2022 1:00 PM IMAGING TECHNOLOGIST Office Visit [facility] Heart and Vascular At [address] [place] [address] Kiel Vasquez MD [address] [place] [address] [address] [place] [address] Paroxysmal atrial fibrillation (Primary Dx); Chronic diastolic dysfunction; Benign hypertension; Carotid artery disease, unspecified laterality, [...] Coronavirus/COVID-19? No / Unsure 06/22/2022 12:44 PM IMAGING TECHNOLOGIST documented as of this encounter Last Filed Vital Signs Vital Sign Reading Time Taken Comments Blood Pressure 120/72 06/22/2022 12:55 PM IMAGING TECHNOLOGIST Pulse 64 06/22/2022 12:55 PM IMAGING TECHNOLOGIST Temperature - - Respiratory Rate - - Oxygen Saturation 97% 06/22/2022 12:55 PM IMAGING TECHNOLOGIST Inhaled Oxygen Concentration - - Weight 63 kg (139 lb) 06/22/2022 12:55 PM IMAGING TECHNOLOGIST Height 160 cm (5' 3 ) 06/22/2022 12:55 PM IMAGING TECHNOLOGIST Body Mass Index 24.62 06/22/2022 12:55 PM IMAGING TECHNOLOGIST documented in this encounter Progress Notes * Kiel Vasquez MD - 06/22/2022 1:00 PM CST [facility] Heart and Vascular Primary Care Physician: Aliza Bain MD Problem List #. afib #. HTN #. 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 Carotid artery stenosis #. Prior tobacco abuse History Of Present Illness Cassandra Martinez is a delightful 76 y.o. female with the above mentioned medical problems. Since her last visit she has felt great. She had an afib ablation. Since then she has not noticed any recurrence, no palpitations, fatigue, or dizzy spells. She is fairly active and does work around her house and yard. She has no cardiac sx or concerns. Going on cruise to [place] tomorrow No CP. No new or significant dyspnea. No light-headedness or syncope. Taking meds. No bleeding or neuro symptoms. Weight similar to recent past. Has 2 children, 3 grand children, 3 great grand children in [facility]. Past Medical History Past Medical History: Diagnosis Date Arthritis Dyspnea on exertion GERD (gastroesophageal reflux disease) HTN (hypertension) Hx of degenerative disc disease Injury of back DDD Malignant neoplasm of lung Family History Family History Problem Relation Name Age of Onset Heart Disease Father Heart Disease Mother Stroke Sister Asthma Sister Social History reports that she quit smoking about 22 years ago. Her smoking use included cigarettes. She has a 20.00 pack-year smoking history. She has never used smokeless tobacco. She reports current alcohol use. She reports that she does not use drugs. Review of Systems See HPI Physical Exam Vitals: 06/22/22 1255 BP: 120/72 Pulse: 64 SpO2: 97% Weight: 63 kg (139 lb) Height: 5' 3 (1.6 m) General: no distress, oriented, looks well CV: normal neck veins, normal auscultated S1/2, no extra heart sounds or gallops, no murmurs Lungs: clear to auscultation bilaterally, no wheezes, rales, rhonchi Ext: no edema, warm, pulses intact Laboratory Data No results found for this visit on 06/22/22 (from the past 24 hour(s)). Lab Results [...] 08/16/2021 06:02 AM No results found for: TSH, TSHULTRA, THYROIDSTIM No results found for: CHOLTOT, HDL, LDLCALC, LDLDIRECT, TRIGLYCERIDE Lab Results Component Value Date/Time NA [...] #. 2020 event monitor - afib #. [id number] holter - 14 additional autotriggered/asympotmatic transmissions revealing atrial fibrillation #. 2021 MPI - no ischemia #. 2021 TTE - EF normal, DD, no VHD Cardiac Catheterization #. n/a Impression/Plan Cassandra Martinez is a delightful 76 y.o. female with the below cardiac diagnoses who presents for eval Atrial fibrillation - [id number] = 4. Ablation 2021 -Will continue rate control -On OAC with eliquis Chronic diastolic dysfunction- Euvolemic, well compensated -continue BP control with olmesartan, HCTZ -continue diuresis PRN Hypertension - BP well controlled. Will continue current medications. -Continue olmesartan, HCTZ PAD - carotid artery stenosis -follows with vascular -cont aspirin RTC 6 months * diet, exercise, and smoking cessation concepts/benefits discussed for long- term CV health * Patient instructed to call with questions or problems/symptoms; if severe or refractory symptoms,patient instructed to go to ED Thank you for giving me the opportunity to participate in the care of your patient, please do not hesitate to contact me with any questions or concerns. Kiel Vasquez MD [facility] - Heart and Vascular General, Interventional, and Structural Cardiology Vascular Medicine and Intervention [address] [facility] [place] [facility] [address] [place] [address] Office Office Medications Current Outpatient Medications: Eliquis 5 mg tablet, TAKE 1 TABLET BY MOUTH TWICE A DAY, Disp: 60 Tablet, Rfl: 6 diltiaZEM (Tiadylt ER) 120 mg Extended Release capsule, Take 2 Capsules (240 mg) by mouth daily., Disp: 90 Capsule, Rfl: 0 pantoprazole (PROTONIX) 20 mg Tablet, Delayed Release (E.C.), Take 20 mg by mouth 2 times daily., Disp: , Rfl: cyanocobalamin (VITAMIN B-12) 100 mcg tablet, Take 100 mcg by mouth daily., Disp: , Rfl: calcium-cholecalciferol (OS-SUSAN 500+D) 500 mg(1,250mg) -200 unit tablet, Take 1 Tablet by mouth daily., Disp: , Rfl: glucosamine sulfate 500 mg Capsule, Take 500 mg by mouth., Disp: , Rfl: magnesium oxide 250 mg [...] tab by mouth daily, Disp: , Rfl: ING TECHNOLOGIST * Pat Delgadillo - 06/22/2022 12:54 PM CST 6 month fu on Paroxysmal atrial fibrillation. SOB and a cough consistently. ING TECHNOLOGIST documented in this encounter Plan of Treatment Upcoming Encounters Date Type Department Care Team (Late st Contact Info) Description 2024 11:00 AM IMAGING TECHNOLOGIST Appointment [facility] [address] [place] [address] 07/21/2024 9:45 AM IMAGING TECHNOLOGIST Appointment [facility] Jig Box Operator [address] [place] [address] Kiel Vasquez MD [address] [facility] 2014 [place] [address] 07/21/2024 9:53 AM IMAGING TECHNOLOGIST Hospital Encounter [facility] Jig Box Operator [address] [place] [address] Kiel Vasquez MD [address] [facility] 2014 [place] [address] Paroxysmal A-fib 07/21/2024 9:53 AM IMAGING TECHNOLOGIST - 07/21/2024 11:46 AM IMAGING TECHNOLOGIST Surgery [facility] Jig Box Operator [address] [place] [address] Kiel Vasquez MD [address] [facility] 2014 [place] [address] Left atrial appendage closure percutaneous 07/28/2024 8:30 AM IMAGING TECHNOLOGIST Office Visit [facility] Oncology and Hematology - [place] [facility] [address] [place] [address] Nahid Hickman MD [address] [facility] [address] [place] [address] 09/09/2024 1:00 PM CDT Office Visit [facility] Heart and Vascular At [address] [place] [address] Kiel Vasquez MD [address] [place] [address] 2014 [place] [address] 12/16/2024 11:00 AM CDT Office Visit [facility] HEART AND VASCULAR EP AT [address] [place] [address] Demetrius Bowling DNP [address] [place] [address] 2014 [place] [address] 02/05/2025 10:45 AM CDT Telephone Check Up [facility] Heart and Vascular At [address] [place] [address] 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, CASH REGISTER MECHANIC [facility] [place] [address] documented as of this encounter Visit Diagnoses Diagnosis Paroxysmal atrial fibrillation- Primary Atrial fibrillation Chronic diastolic dysfunction Chronic diastolic heart failure Benign hypertension Essential hypertension, benign Carotid artery disease, unspecified laterality, unspecified type Paroxysmal atrial fibrillation- Primary Atrial fibrillation Paroxysmal A-fib Atrial fibrillation Paroxysmal A-fib Atrial fibrillation documented in this encounter Care Teams Technical Support Specialist Relationship Specialty Start Date End Date Aliza Bain MD [address] [place] [address] PCP - General Family Practice 11/22/21 documented as of this encounter
--- OUTSIDE RECORDS SUMMARY | 2024-07-01 00:42 | XMS_ITS | Encounter Summary ---
Author Organization [facility] Address [address] [place] [address] Care Team Providers Care Bay Stocker Name Role Phone Aliza Bain MD Primary Care Provider Reason for Visit * Reason Onset Date Comments Medication Refill 06/07/2023 Encounter Details Date Type Department Care Team (Late st Contact Info) Description 06/07/2023 Refill [facility] Heart and Vascular At [address] [place] [address] Kiel Vasquez MD [address] [place] [address] 2014 [place] [address] Social History Tobacco Use Types [...] any clubs o r organizations such as rastafarian groups, unions, fraternal or athletic groups, or [...] encounter Miscellaneous Notes * Telephone Encounter - Celeste Bruno - 06/07/2023 2:04 PM CST Comments: Date Last Seen: 01/23/2023 Next Appointment: 07/31/2023 Last BMP: Lab Results Component Value Date/Time [...] Current Outpatient Medications Medication Sig Dispense Refill apixaban (Eliquis) 5 mg tablet Take 1 Tablet (5 mg) by mouth 2 times daily. 180 Tablet 2 acetaminophen-codeine (TYLENOL #3) 300-30 mg tablet Take 1 Tablet by mouth every 6 hours as needed. pantoprazole (PROTONIX) 20 mg Tablet, Delayed Release [...] No current facility-administered medications for this visit. AGE CANNER documented in this encounter Plan of Treatment Upcoming Encounters Date Type Department Care Team (Late st Contact Info) Description 2024 11:00 AM SAUSAGE CANNER Appointment [facility] S [facility] [address] [place] [address] 07/21/2024 9:45 AM SAUSAGE CANNER Appointment [facility] Wind Project Manager [address] [place] [address] Kiel Vasquez MD [address] [facility] 2014 [place] [address] 07/21/2024 9:53 AM SAUSAGE CANNER Hospital Encounter [facility] Wind Project Manager [address] [place] [address] Kiel Vasquez MD [address] [facility] 2014 [place] [address] Paroxysmal A-fib 07/21/2024 9:53 AM SAUSAGE CANNER - 07/21/2024 11:46 AM SAUSAGE CANNER Surgery [facility] Wind Project Manager [address] [place] [address] Kiel Vasquez MD [address] [facility] 2014 [place] [address] Left atrial appendage closure percutaneous 07/28/2024 8:30 AM SAUSAGE CANNER Office Visit [facility] Oncology and Hematology - [place] [address] [facility] 200 [place] [address] Nahid Hickman MD 2224 [facility] [address] [place] [address] 09/09/2024 1:00 PM CDT Office Visit [facility] Heart and Vascular At [address] 2014 [place] [address] Kiel Vasquez MD [facility] S [facility] 2014 [place] [address] 12/16/2024 11:00 AM CDT Office Visit [facility] HEART AND VASCULAR EP AT [address] [place] [address] Demetrius Bowling DNP [address] [place] [address] 2014 [place] [address] 02/05/2025 10:45 AM CDT Telephone Check Up [facility] Heart and Vascular At [address] [place] [address] 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 FNP [facility] [place] [address] documented as of this encounter Visit Diagnoses Not on filedocumented in this encounter Care Teams Bay Stocker Relationship Specialty Start Date End Date Aliza Bain MD [address] [place] [address] PCP - General Family Practice 11/22/21 documented as of this encounter
--- OUTSIDE RECORDS SUMMARY | 2024-07-01 00:42 | XMS_ITS | Encounter Summary ---
Author Organization [facility] Address [address] [place] [address] Care Team Providers Care Ash Conveyor Operator Name Role Phone Aliza Bain MD Primary Care Provider Encounter Details Date Type Department Care Team (Late st Contact Info) Description 07/12/2023 External Device Data STL ABSTRACTION Provider, Abstract [...] Contact Info) Description 2024 11:00 AM BAKER TEST Appointment [facility] [address] [place] [address] 07/21/2024 9:45 AM BAKER TEST Appointment [facility] Cement Mason Maintenance [address] [place] [address] Kiel Vasquez MD [address] [place] [address] 07/21/2024 9:53 AM BAKER TEST Hospital Encounter [facility] [employer] [address] [place] [address] Kiel Vasquez MD [address] 2014 [place] [address] Jesse Lackey-shirley 07/21/2024 9:53 AM BAKER TEST - 07/21/2024 11:46 AM BAKER TEST Surgery [facility] [employer] [address] [place] [address] Kiel Vasquez MD [address] 2014 [place] [address] Left atrial appendage closure percutaneous 07/28/2024 8:30 AM BAKER TEST Office Visit [facility] Oncology and Hematology - [place] 2[address] [facility] 200 [place] [address] Nahid Hickman MD 2227 [facility] [address] [place] [address] 09/09/2024 1:00 PM CDT Office Visit [facility] Heart and Vascular At [address] 2014 [place] [address] Kiel Vasquez MD [address] [place] [address] 2014 [place] [address] 12/16/2024 11:00 AM CDT Office Visit [facility] HEART AND VASCULAR EP AT [address] [place] [address] Demetrius Bowling DNP [address] [place] [address] 2014 [place] [address] 02/05/2025 10:45 AM CDT Telephone Check Up [facility] Heart and Vascular At [address] 2014 [place] [address] 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 FNP [address] [place] [address] documented as of this encounter Visit Diagnoses Not on filedocumented in this encounter Care Teams Ash Conveyor Operator Relationship Specialty Start Date End Date Aliza Bain MD [address] [place] [address] PCP - General Family Practice 11/22/21 documented as of this encounter
--- OUTSIDE RECORDS SUMMARY | 2024-07-01 00:42 | XMS_ITS | Encounter Summary ---
Author Organization [facility] Address [address] [place] [address] Care Team Providers Care Fiscal Economist Name Role Phone Aliza Bain MD Primary Care Provider Reason for Visit * Reason Onset Date Comments Surgical Clearance 07/26/2022 Encounter Details Date Type Department Care Team (Late st Contact Info) Description 07/26/2022 Telephone [facility] Heart and Vascular At [place] [address] [facility] [address] [place] [address] Kiel Vasquez MD [address] [place] [address] 2014 [place] [address] Surgical Clearance Social History Tobacco Use Types Packs/Day Years [...] Miscellaneous Notes * Telephone Encounter - Melanie Sewnson RN - 07/27/2022 10:02 AM CST Form printed and placed on Dr. Vasquez's desk. E TESTER * Telephone Encounter - Valarie Díaz - 07/26/2022 9:18 AM CST Patient states a form was faxed to us by her surgeon to get Dr. Vasquez's approval to be off of Eliquis for her upcoming eyelid surgery. Please call patient at [phone] to discuss what she needs Thank you. E TESTER documented in this encounter Plan of Treatment Upcoming Encounters Date Type Department Care Team (Late st Contact Info) Description 2024 11:00 AM AGILE TESTER Appointment [facility] [address] [place] [address] 07/21/2024 9:45 AM AGILE TESTER Appointment [facility] Guide Dog Trainer [address] [place] [address] Kiel Vasquez MD [address] [facility] 2014 [place] [address] 07/21/2024 9:53 AM AGILE TESTER Hospital Encounter [facility] Guide Dog Trainer [address] [place] [address] Kiel Vasquez MD [address] [facility] 2014 [place] [address] Paroxysmal A-fib 07/21/2024 9:53 AM AGILE TESTER - 07/21/2024 11:46 AM AGILE TESTER Surgery [facility] Guide Dog Trainer [address] [place] [address] Kiel Vasquez MD [address] [facility] 2014 [place] [address] Left atrial appendage closure percutaneous 07/28/2024 8:30 AM AGILE TESTER Office Visit [facility] Oncology and Hematology - [place] [address] [place] [address] Nahid Hickman MD [address] [address] 09/09/2024 1:00 PM CDT Office Visit [facility] Heart and Vascular At [facility] [address] [facility] 2014 [place] [address] Kiel Vasquez MD [address] [facility] 2014 [place] [address] 12/16/2024 11:00 AM CDT Office Visit [facility] HEART AND VASCULAR EP AT [facility] [address] [facility] [address] [place] [address] Demetrius Bowling DNP [address] [facility] [address] 2014 [place] [address] 02/05/2025 10:45 AM CDT Telephone Check Up [facility] Heart and Vascular At [place] [address] [facility] [address] [place] [address] 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 FNP [address] [place] [address] documented as of this encounter Visit Diagnoses Not on filedocumented in this encounter Care Teams Fiscal Economist Relationship Specialty Start Date End Date Aliza Bain MD [address] [place] [address] PCP - General Family Practice 11/22/21 documented as of this encounter
--- OUTSIDE RECORDS SUMMARY | 2024-07-01 00:42 | XMS_ITS | Encounter Summary ---
Author Organization [facility] Address [address] [place] [address] Care Team Providers Care Agriculture Teacher Name Role Phone Aliza Bain MD Primary Care Provider Encounter Details Date Type Department Care Team (Late st Contact Info) Description 05/29/2023 External Device Data STL ABSTRACTION Provider, Abstract [...] and Family Not on file 07/29/2020 Attends [employer] Not on file 07/29 Do you belong to any clubs o r organizations such as taoist groups, unions, fraternal or athletic groups, or [...] st Contact Info) Description 2024 11:00 AM TOXICS PROGRAM OFFICER Appointment [facility] [address] [place] [address] 07/21/2024 9:45 AM TOXICS PROGRAM OFFICER Appointment [facility] Preform Machine Operator [address] [place] [address] Kiel Vasquez MD [address] [place] [address] 07/21/2024 9:53 AM TOXICS PROGRAM OFFICER Hospital Encounter [facility] Preform Machine Operator [address] [place] [address] Kiel Vasquez MD [address] [place] [address] Jesse Lackey-shirley 07/21/2024 9:53 AM TOXICS PROGRAM OFFICER - 07/21/2024 11:46 AM TOXICS PROGRAM OFFICER Surgery [facility] Preform Machine Operator [address] [place] [address] Kiel Vasquez MD [address] [place] [address] Left atrial appendage closure percutaneous 07/28/2024 8:30 AM TOXICS PROGRAM OFFICER Office Visit [facility] Oncology and Hematology - [place] [address] [facility] 200 [place] [address] Nahid Hickman MD 2227 [facility] [address] [place] [address] 09/09/2024 1:00 PM CDT Office Visit [facility] Heart and Vascular At [address] 2014 [place] [address] Kiel Vasquez MD [address] [place] [address] 2014 [place] [address] 12/16/2024 11:00 AM CDT Office Visit [facility] HEART AND VASCULAR EP AT [address] [place] [address] Demetrius Bowling DNP [address] [place] [address] 2014 [place] [address] 02/05/2025 10:45 AM CDT Telephone Check Up [facility] Heart and Vascular At [address] 2014 [place] [address] 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 FNP [address] [place] [address] documented as of this encounter Visit Diagnoses Not on filedocumented in this encounter Care Teams Agriculture Teacher Relationship Specialty Start Date End Date Aliza Bain MD [address] [place] [address] PCP - General Family Practice 11/22/21 documented as of this encounter
--- OUTSIDE RECORDS SUMMARY | 2024-07-01 00:42 | XMS_ITS | Encounter Summary ---
Author Organization [facility] [employer] [facility] Address [address] [place] [address] Care Team Providers Care Butcher Scullion Name Role Phone Aliza Bain MD Primary Care Provider Encounter Details Date Type Department Care Team (Late st Contact Info) Description 12/04/2022 Orders Only [facility] Oncology and Hematology - [place] [address] [facility] [facility] 200 [place] [address] Nahid Hickman MD [address] [employer] [address] [place] [address] Social History Tobacco Use Types [...] st Contact Info) Description 2024 11:00 AM DRILL PRESS OPERATOR HELPER Appointment [facility] S [facility] Manjit [address] [place] [address] 07/21/2024 9:45 AM DRILL PRESS OPERATOR HELPER Appointment [facility] Assemblies And Installations Inspector [address] [place] [address] Kiel Vasquez MD [address] [facility] 2014 [place] [address] 07/21/2024 9:53 AM DRILL PRESS OPERATOR HELPER Hospital Encounter [facility] Assemblies And Installations Inspector [address] [place] [address] Kiel Vasquez MD [address] [facility] 2014 [place] [address] Paroxysmal A-fib 07/21/2024 9:53 AM DRILL PRESS OPERATOR HELPER - 07/21/2024 11:46 AM DRILL PRESS OPERATOR HELPER Surgery [facility] Assemblies And Installations Inspector [address] [place] [address] Kiel aVsquez MD [address] [place] [address] 2014 [place] [address] Left atrial appendage closure percutaneous 07/28/2024 8:30 AM DRILL PRESS OPERATOR HELPER Office Visit [facility] Oncology and Hematology - [place] [address]227 [facility] 200 [place] [address] Nahid Hickman MD 2[address] [facility] [address] [place] [address] 09/09/2024 1:00 PM CDT Office Visit [facility] Heart and Vascular At [address] 2014 [place] [address] Kiel Vasquez MD [address] [place] [address] 2014 [place] [address] 12/16/2024 11:00 AM CDT Office Visit [facility] HEART AND VASCULAR EP AT [address] [place] [address] Demetrius Bowling DNP [address] [place] [address] 2014 [place] [address] 02/05/2025 10:45 AM CDT Telephone Check Up [facility] Heart and Vascular At [address] 2014 [place] [address] 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 FNP [facility] [place] [address] documented as of this encounter Procedures Procedure Name Priority Date/Time Associated Diagnosis Comments CBC WITH DIFFERENTIAL Routine 12/04/2022 11:30 AM CDT KAPPA/LAMBDA LIGHT CHAINS Routine 2022 10:08 AM CDT PROTEIN TOTAL Routine 11/27/2022 9:27 AM CDT documented in this encounter Results * CBC WITH DIFFERENTIAL (12/04/2022 11:30 AM CDT) Blood Nahid Hickman MD HEMATOLOGY ORDERABLE S * KAPPA/LAMBDA, FREE LIGHT CHAINS (11/27/2022 10:08 AM CDT) Blood Nahid Hickman MD CHEMISTRY ORDERABLES * PROTEIN TOTAL (11/27/2022 9:27 AM CDT) Blood Nahid Hickman MD CHEMISTRY ORDERABLES documented in this encounter Visit Diagnoses Not on filedocumented in this encounter Care Teams Butcher Scullion Relationship Specialty Start Date End Date Aliza Bain MD [address] [place] [address] PCP - General Family Practice 11/22/21 documented as of this encounter
--- OUTSIDE RECORDS SUMMARY | 2024-07-01 00:42 | XMS_ITS | Encounter Summary ---
Author Organization [facility] Address [address] [place] [address] Care Team Providers Care Director Trust Name Role Phone Aliza Bain MD Primary Care Provider Encounter Details Date Type Department Care Team (Late st Contact Info) Description 06/01/2022 Orders Only [facility] Oncology and Hematology - [place] [address] [place] [address] Matilda Yap, RN Malignant neoplasm of upper lobe of right [...] Coronavirus/COVID-19? No / Unsure 06/05/2022 9:47 AM STAFF PHARMACIST HOSPITAL documented as of this encounter Plan of Treatment Upcoming Encounters Date Type Department Care Team (Late st Contact Info) Description 2024 11:00 AM STAFF PHARMACIST HOSPITAL Appointment [facility] [address] [place] [address] 07/21/2024 9:45 AM STAFF PHARMACIST HOSPITAL Appointment [facility] [employer] [address] [place] [address] Kiel Vasquez MD [address] 2014 [place] [address] 07/21/2024 9:53 AM STAFF PHARMACIST HOSPITAL Hospital Encounter [facility] [facility] [address] [place] [address] Kiel Vasquez MD [address] 2014 [place] [address] Paroxysmal A-fib 07/21/2024 9:53 AM STAFF PHARMACIST HOSPITAL - 07/21/2024 11:46 AM STAFF PHARMACIST HOSPITAL Surgery [facility] [address] [place] [address] Kiel Vasquez MD [address] [place] [address] 2014 [place] [address] Left atrial appendage closure percutaneous 07/28/2024 8:30 AM STAFF PHARMACIST HOSPITAL Office Visit [facility] Oncology and Hematology - [place] 2227 [facility] 200 [place] [address] Nahid Hickman MD 2227 [facility] [address] [place] [address] 09/09/2024 1:00 PM CDT Office Visit [facility] Heart and Vascular At [address] [place] [address] Kiel Vasquez MD [address] [place] [address] 2014 [place] [address] 12/16/2024 11:00 AM CDT Office Visit [facility] HEART AND VASCULAR EP AT [address] [place] [address] Demetrius Bowling DNP [address] [place] [address] 2014 [place] [address] 02/05/2025 10:45 AM CDT Telephone Check Up [facility] Heart and Vascular At [address] [place] [address] 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 FNP [address] [place] [phone] documented as of this encounter Visit Diagnoses Diagnosis Malignant neoplasm of upper lobe of right lung Malignant neoplasm of upper lobe, bronchus or lung Paroxysmal atrial fibrillation- Primary Atrial fibrillation Paroxysmal A-fib Atrial fibrillation Paroxysmal A-fib Atrial fibrillation documented in this encounter Care Teams Director Trust Relationship Specialty Start Date End Date Aliza Bain MD [address] [place] [address] PCP - General Family Practice 11/22/21 documented as of this encounter
--- OUTSIDE RECORDS SUMMARY | 2024-07-01 00:42 | XMS_ITS | Encounter Summary ---
Author Organization [facility] [employer] [facility] Address [address] [place] [address] Care Team Providers Care Psychodramatist Name Role Phone Aliza Bain MD Primary Care Provider Reason for Visit * Reason Comments Follow Up Encounter Details Date Type Department Care Team (Late st Contact Info) Description 06/04/2023 10:15 AM INSURANCE SALESPERSON Office Visit [facility] Oncology and Hematology - [place] [address] [facility] 200 [place] [address] Nahid Hickman MD 2[address] [facility] [address] [place] [address] Malignant neoplasm of right upper lobe of lung (Primary Dx); MGUS (monoclonal gammopathy of unknown significance) Social [...] Sign Reading Time Taken Comments Blood Pressure 176/75 06/04/2023 10:17 AM INSURANCE SALESPERSON Pulse 63 06/04/2023 10:15 AM INSURANCE SALESPERSON Temperature 35.9 ??C (96.6 ??F) 06/04/2023 10:[address] Respiratory Rate 10 06/04/2023 10:15 AM INSURANCE SALESPERSON Oxygen Saturation - - Inhaled Oxygen Concentration - - Weight 63.5 kg (140 lb) 06/04/2023 10:15 AM INSURANCE SALESPERSON Height - - Body Mass Index 24.8 01/23/2023 2:11 PM CDT documented in this encounter Progress Notes * Nahid Hickman MD - 06/04/2023 10:42 AM CST HEMATOLOGY / ONCOLOGY PROGRESS NOTE [...] office for follow-up visit. She denies any new lump of the lymphadenopathy. Denies any chest pain and shortness of breath. She has chronic back pain. No other new complaints. Review of system [...] no lymphadenopathy, sweats, flushing Musculoskeletal: denies: myalgia, complain of chronic back pain Neurological: denies blurry or disturbed [...] creatinine 0.9 calcium 9.3 M spike 0.8 [place] lightchain 26.2 lambda light chain 97 Labs from May 28 showed creatinine 1.0 GFR 54 hemoglobin 10.7 Assessment: Plan: Patient Active Problem List Diagnosis Date Noted Mixed hyperlipidemia 01/23/2023 Chronic diastolic dysfunction 12/15/2021 [...] expression of 2%. Negative ALK gene rearrangement. Clinically she remains asymptomatic. CT scan chest done on May 28 showed no evidence of activedisease. We will repeat CT chest in 6 months. MGUS. Clinically she is asymptomatic. Repeat myeloma testing will be done in 6 months. Anemia. Hemoglobin is stable at 10.7. Continue iron 325 daily and vitamin B12 500 mcg daily. A-fib status post ablation. She is asymptomatic. 06/04/2023 Nahid Hickman MD RANCE SALESPERSON documented in this encounter Plan of Treatment Upcoming Encounters Date Type Department Care Team (Late st Contact Info) Description 2024 11:00 AM INSURANCE SALESPERSON Appointment [facility] S [address] [place] [place] [address] 07/21/2024 9:45 AM INSURANCE SALESPERSON Appointment [facility] Brush Trimming Machine Setter [address] [place] [address] Kiel Vasquez MD [address] [facility] [address] [place] [address] 07/21/2024 9:53 AM INSURANCE SALESPERSON Hospital Encounter [facility] Brush Trimming Machine Setter [address] [place] [address] Kiel Vasquez MD [address] [facility] 2014 [place] [address] Paroxysmal A-fib 07/21/2024 9:53 AM INSURANCE SALESPERSON - 07/21/2024 11:46 AM INSURANCE SALESPERSON Surgery [facility] Brush Trimming Machine Setter [address] [place] [address] Kiel Vasquez MD [address] [facility] [address] [place] [address] Left atrial appendage closure percutaneous 07/28/2024 8:30 AM INSURANCE SALESPERSON Office Visit [facility] Oncology and Hematology - [place] [address] [place] [address] Nahid iHckman MD [address] [facility] [address] [place] [address] 09/09/2024 1:00 PM CDT Office Visit [facility] Heart and Vascular At [address] [place] [address] Kiel Vasquez MD [facility] S [facility] 2014 [place] [address] 12/16/2024 11:00 AM CDT Office Visit [facility] HEART AND VASCULAR EP AT [address] [place] [address] Demetrius Bowling DNP [facility] S [facility] 2014 [place] [address] 02/05/2025 10:45 AM CDT Telephone Check Up [facility] Heart and Vascular At [address] 2014 [place] [address] 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 FNP [facility] [place] [address] documented as of this encounter Visit Diagnoses Diagnosis Malignant neoplasm of right upper lobe of lung- Primary Malignant neoplasm of upper lobe, bronchus or lung MGUS (monoclonal gammopathy of unknown significance) Monoclonal paraproteinemia Paroxysmal atrial fibrillation- Primary Atrial fibrillation Paroxysmal A-fib Atrial fibrillation Paroxysmal A-fib Atrial fibrillation documented in this encounter Care Teams Psychodramatist Relationship Specialty Start Date End Date Aliza Bain MD [address] [place] [address] PCP - General Family Practice 11/22/21 documented as of this encounter
--- OUTSIDE RECORDS SUMMARY | 2024-07-01 00:42 | XMS_ITS | Encounter Summary ---
Author Organization [facility] Address [address] [place] [address] Care Team Providers Care Plug Assembler Name Role Phone Aliza Bain MD Primary Care Provider Reason for Visit * Reason Onset Date Comments Elevated Blood Pressure 08/27/2023 Encounter Details Date Type Department Care Team (Late st Contact Info) Description 08/27/2023 Telephone [facility] Heart and Vascular At [place] [address] [address] [facility] [address] [place] [address] Kiel Vasquez MD [address] [place] [address] 2014 [place] [address] Elevated Blood Pressure Social History [...] Telephone Encounter - Melanie Swenson RN - 08/28/2023 9:15 AM CDT Images from the original note were not included. Kiel Vasquez MD Kiely, Sarah A RN Caller: Unspecified (Yesterday, 3:15 PM) Lets add norvasc 5mg daily Spoke to pt on the phone, notified her of the above. Pt verbalized understanding. Rx sent. * Telephone Encounter - Melanie Swenson RN - 08/27/2023 3:40 PM CDT Spoke to pt on the phone, she states her BP is 160-180 systolic. She takes her BP in the AM and takes her medication at night. She states her BP is never less than 150 systolic. She is on olmesartan 40mg qd and HCTZ 25mg qd. She c/o NAVARRO every day and fatigue. HR is 60. Please review and advise. * Telephone Encounter - Shaina Louis - 08/27/2023 3:15 PM CDT Patient is concerned her blood pressure is not changing since her recently prescribed medication. She would like a call to discuss. [phone] documented in this encounter Plan of Treatment Upcoming Encounters Date Type Department Care Team (Late st Contact Info) Description 2024 11:00 AM SHIP CLEANER Appointment [facility] S [facility] [address] [place] [address] 07/21/2024 9:45 AM SHIP CLEANER Appointment [facility] Ambulatory Technologist [address] [place] [address] Kiel Vasquez MD [address] [facility] 2014 [place] [address] 07/21/2024 9:53 AM SHIP CLEANER Hospital Encounter [facility] Ambulatory Technologist [address] [place] [address] Kiel Vasquez MD [address] [facility] 2014 [place] [address] Paroxysmal A-fib 07/21/2024 9:53 AM SHIP CLEANER - 07/21/2024 11:46 AM SHIP CLEANER Surgery [facility] Ambulatory Technologist [address] [place] [address] Kiel Vasquez MD [address] [facility] 2014 [place] [address] Left atrial appendage closure percutaneous 07/28/2024 8:30 AM SHIP CLEANER Office Visit [facility] Oncology and Hematology - [place] 2227 [facility] [address] 200 [place] [address] Nahid Hickman MD [address] [facility] [address] [place] [address] 09/09/2024 1:00 PM CDT Office Visit [facility] Heart and Vascular At [address] [place] [address] Kiel Vasquez MD [address] [place] [address] 2014 [place] [address] 12/16/2024 11:00 AM CDT Office Visit [facility] HEART AND VASCULAR EP AT [address] 2014 [place] [address] Demetrius Bowling DNP [address] [place] [address] 2014 [place] [address] 02/05/2025 10:45 AM CDT Telephone Check Up [facility] Heart and Vascular At [address] [place] [address] 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, CAT [facility] [place] [address] documented as of this encounter Visit Diagnoses Not on filedocumented in this encounter Care Teams Plug Assembler Relationship Specialty Start Date End Date Aliza Bain MD [address] [place] [address] PCP - General Family Practice 11/22/21 documented as of this encounter
--- OUTSIDE RECORDS SUMMARY | 2024-07-01 00:42 | XMS_ITS | Encounter Summary ---
Author Organization [facility] [employer] [facility] Address [address] [place] [address] Care Team Providers Care Marking Clerk Name Role Phone Aliza Bain MD Primary Care Provider Encounter Details Date Type Department Care Team (Late st Contact Info) Description 11/28/2022 Orders Only [facility] Oncology and Hematology - [place] [address] [facility] 200 [place] [address] Nahid Hickman MD [address] [place] [address] Social History Tobacco Use Types [...] st Contact Info) Description 2024 11:00 AM SADDLE AND HARNESS MAKER Appointment [facility] S [facility] Manjit [address] [place] [address] 07/21/2024 9:45 AM SADDLE AND HARNESS MAKER Appointment [facility] Garage Manager [address] [place] [address] Kiel Vasquez MD [address] [facility] 2014 [place] [address] 07/21/2024 9:53 AM SADDLE AND HARNESS MAKER Hospital Encounter [facility] Garage Manager [address] [place] [address] Kiel Vasuqez MD [address] [facility] 2014 [place] [address] Paroxysmal A-fib 07/21/2024 9:53 AM SADDLE AND HARNESS MAKER - 07/21/2024 11:46 AM SADDLE AND HARNESS MAKER Surgery [facility] Garage Manager [address] [place] [phone] Kiel Vasquez MD [address] [place] [address] 2014 [place] [address] Left atrial appendage closure percutaneous 07/28/2024 8:30 AM SADDLE AND HARNESS MAKER Office Visit [facility] Oncology and Hematology - [place] 2[address] [facility] 200 [place] [address] Nahid Hickman MD [address] [facility] [address] [place] [address] 09/09/2024 1:00 PM CDT Office Visit [facility] Heart and Vascular At [address] 2014 [place] [address] Kiel Vasquez MD [address] [place] [address] 2014 [place] [address] 12/16/2024 11:00 AM CDT Office Visit [facility] HEART AND VASCULAR EP AT [address] [place] [address] Demetrius Bowling DNP [address] [place] [address] 2014 [place] [address] 02/05/2025 10:45 AM CDT Telephone Check Up [facility] Heart and Vascular At [address] 2014 [place] [address] 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 FNP [address] [place] [address] documented as of this encounter Procedures Procedure Name Priority Date/Time Associated Diagnosis Comments IMMUNOGLOBULINS IGG IGA IGM Routine 11/27/2022 11:01 AM CDT CBC WITH DIFFERENTIAL Routine 11/27/2022 9:22 AM CDT documented in this encounter Results * IMMUNOGLOBULINS IGG IGA IGM (11/27/2022 11:01 AM CDT) Blood Nahid Hickman MD CHEMISTRY ORDERABLES * CBC WITH DIFFERENTIAL (11/27/2022 9:22 AM CDT) Blood Nahid Hickman MD HEMATOLOGY ORDERABLE S documented in this encounter Visit Diagnoses Not on filedocumented in this encounter Care Teams Marking Clerk Relationship Specialty Start Date End Date Aliza Bain MD [address] [place] [address] PCP - General Family Practice 11/22/21 documented as of this encounter
--- OUTSIDE RECORDS SUMMARY | 2024-07-01 00:43 | XMS_ITS | Encounter Summary ---
Author Organization [facility] [employer] [facility] Address [address] [place] [address] Care Team Providers Care Deck And Hull Assembler Name Role Phone Aliza Bain MD Primary Care Provider Encounter Details Date Type Department Care Team (Late st Contact Info) Description 11/21/2021 Orders Only [facility] Oncology and Hematology - [place] [address] [place] [address] Provider, Abstract NO ADDRESS ON FILE Social [...] any clubs o r organizations such as worship groups, unions, fraternal or athletic groups, or [...] suspected to have Coronavirus/COVID-19? No / Unsure 11/23/2021 10:01 AM CDT documented as of this encounter Plan of Treatment Upcoming Encounters Date Type Department Care Team (Late st Contact Info) Description 2024 11:00 AM WEATHER ANALYST Appointment [facility] S [address] [place] [address] [place] [address] 07/21/2024 9:45 AM WEATHER ANALYST Appointment [facility] [address] [place] [address] Kiel Vasquez MD [address] [place] [address] 07/21/2024 9:53 AM WEATHER ANALYST Hospital Encounter [facility] [address] [place] [address] Kiel Vasquez MD [address] 2014 [place] [address] Paroxysmal A-fib 07/21/2024 9:53 AM WEATHER ANALYST - 07/21/2024 11:46 AM WEATHER ANALYST Surgery [facility] [address] [place] [phone] Kiel Vasquez MD [address] [place] [address] 2014 [place] [address] Left atrial appendage closure percutaneous 07/28/2024 8:30 AM WEATHER ANALYST Office Visit [facility] Oncology and Hematology - [place] 2227 [facility] 200 [place] [address] Nahid Hickman MD [address] [facility] [address] [place] [address] 09/09/2024 1:00 PM CDT Office Visit [facility] Heart and Vascular At [address] [place] [address] Kiel Vasquez MD [address] [place] [address] 2014 [place] [address] 12/16/2024 11:00 AM CDT Office Visit [facility] HEART AND VASCULAR EP AT [address] [place] [address] Demetrius Bowling DNP [address] [place] [address] 2014 [place] [address] 02/05/2025 10:45 AM CDT Telephone Check Up [facility] Heart and Vascular At [address] [place] [address] 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 FNP [facility] [place] [address] documented as of this encounter Procedures Procedure Name Priority Date/Time Associated Diagnosis Comments VITAMIN B12 AND FOLATE Routine 11/16/2021 IRON, TIBC, AND PERCENT SATURATION Routine 11/16/2021 CBC WITH DIFFERENTIAL Routine 11/16/2021 FERRITIN Routine 11/16/2021 COMPREHENSIVE METABOLIC PANEL Routine 11/16/2021 documented in this encounter Results * FERRITIN (11/16/2021) Blood Abstract Provider CHEMISTRY ORDERABLES * IRON, TIBC, AND PERCENT SATURATION (11/16/2021) Blood Abstract Provider CHEMISTRY ORDERABLES * VITAMIN B12 AND FOLATE (11/16/2021) Blood Abstract Provider CHEMISTRY ORDERABLES * CBC WITH DIFFERENTIAL (11/16/2021) Blood Abstract Provider HEMATOLOGY ORDERABLE S * COMPREHENSIVE METABOLIC PANEL (11/16/2021) Blood Abstract Provider CHEMISTRY ORDERABLES documented in this encounter Visit Diagnoses Not on filedocumented in this encounter Care Teams Deck And Hull Assembler Relationship Specialty Start Date End Date Aliza Bain MD [address] [place] [address] PCP - General Family Practice 11/22/21 documented as of this encounter
--- OUTSIDE RECORDS SUMMARY | 2024-07-01 00:43 | XMS_ITS | Encounter Summary ---
Author Organization [facility] Address [address] [place] [address] Care Team Providers Care E Commerce Specialist Name Role Phone Aliza Bain MD Primary Care Provider Reason for Visit * Reason Onset Date Comments Medication Refill 07/25/2021 Encounter Details Date Type Department Care Team (Late st Contact Info) Description 07/25/2021 Refill [facility] - [facility] [address] [place] [address] Kiel Vasquez MD [address] [facility] 2014 [place] [address] New onset atrial fibrillation Social History Tobacco Use Types [...] and Family Not on file 07/29/2020 Attends [employer] Not on file 07/29 Do you belong to any clubs o r organizations such as lutheran groups, unions, fraternal or athletic groups, or [...] or suspected to have Coronavirus / COVID-19? Unable to assess 07/01/2021 11:19 AM PAMPHLET DISTRIBUTOR documented as of this encounter Plan of Treatment Upcoming Encounters Date Type Department Care Team (Late st Contact Info) Description 2024 11:00 AM PAMPHLET DISTRIBUTOR Appointment [facility] [address] [address] [place] [address] 07/21/2024 9:45 AM PAMPHLET DISTRIBUTOR Appointment [facility] Corrections Caseworker [address] [place] [address] Kiel Vasquez MD [address] [place] [address] 07/21/2024 9:53 AM PAMPHLET DISTRIBUTOR Hospital Encounter [facility] Caseworker [address] [place] [address] Kiel Vasquez MD [facility] S [facility] 2014 [place] [address] Paroxysmal A-fib 07/21/2024 9:53 AM PAMPHLET DISTRIBUTOR - 07/21/2024 11:46 AM PAMPHLET DISTRIBUTOR Surgery [facility] Caseworker [address] [place] [address] Kiel Vasquez MD [facility] S [facility] 2014 [place] [address] Left atrial appendage closure percutaneous 07/28/2024 8:30 AM PAMPHLET DISTRIBUTOR Office Visit [facility] Oncology and Hematology - [place] 2227 [facility] 200 [place] [address] Nahid Hickman MD 2227 [facility] [address] [place] [address] 09/09/2024 1:00 PM CDT Office Visit [facility] Heart and Vascular At [address] [place] [address] Kiel Vasquez MD [facility] S [facility] 2014 [place] [address] 12/16/2024 11:00 AM CDT Office Visit [facility] HEART AND VASCULAR EP AT [address] [place] [address] Demetrius Bowling DNP [address] [place] [address] 2014 [place] [address] 02/05/2025 10:45 AM CDT Telephone Check Up [facility] Heart and Vascular At [address] [place] [address] 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, COREMAKING SUPERVISOR [address] [place] [address] documented as of this encounter Visit Diagnoses Diagnosis New onset atrial fibrillation Atrial fibrillation Paroxysmal atrial fibrillation- Primary Atrial fibrillation Paroxysmal A-fib Atrial fibrillation Paroxysmal A-fib Atrial fibrillation documented in this encounter Care Teams E Commerce Specialist Relationship Specialty Start Date End Date Aliza Bain MD [address] [address] PCP - General Family Practice 07/29/20 11/21/21 documented as of this encounter
--- OUTSIDE RECORDS SUMMARY | 2024-07-01 00:43 | XMS_ITS | Encounter Summary ---
Author Organization [facility] Address [address] [facility] Attn: Epic Prelude ADT [place] [address] Care Team Providers Care Lane Attendant Name Role Phone Aliza Bain MD Primary Care Provider Encounter Details Date Type Department Care Team (Latest Contact Info) Description 11/07/2021 Travel Social History Tobacco Use Types Packs/Day [...] suspected to have Coronavirus/COVID-19? 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 [address] [place] [address] Kiel Vasquez MD [address] [place] [address] 07/21/2024 9:53 AM CARDIOLOGY CLINICAL CONSULTANT Hospital Encounter [facility] [employer] Pump Operator [address] [place] [address] Kiel Vasquez MD [address] [place] [address] Jesse Lackey-fib 07/21/2024 9:53 AM CARDIOLOGY CLINICAL CONSULTANT - 07/21/2024 11:46 AM CARDIOLOGY CLINICAL CONSULTANT Surgery [facility] [employer] Pump Operator [address] [place] [phone] Kiel Vasquez MD [address] [place] [address] 2014 [place] [address] Left atrial appendage closure percutaneous 07/28/2024 8:30 AM CARDIOLOGY CLINICAL CONSULTANT Office Visit [facility] Oncology and Hematology - [place] 2227 [facility] 200 [place] [address] Nahid Hickman MD 2227 [facility] [address] [place] [address] 09/09/2024 1:00 PM CDT Office Visit [facility] Heart and Vascular At [address] [place] [address] Kiel Vasquez MD [address] [place] [address] 2014 [place] [address] 12/16/2024 11:00 AM CDT Office Visit [facility] HEART AND VASCULAR EP AT [address] [place] [address] Demetrius Bowling DNP [address] [place] [address] 2014 [place] [address] 02/05/2025 10:45 AM CDT Telephone Check Up [facility] Heart and Vascular At [address] [place] [address] 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 FNP [address] [place] [address] documented as of this encounter Visit Diagnoses Not on filedocumented in this encounter Care Teams Lane Attendant Relationship Specialty Start Date End Date Aliza Bain MD [address] [place] [phone] PCP - General Family Practice 07/29/20 11/21/21 documented as of this encounter
--- OUTSIDE RECORDS SUMMARY | 2024-07-01 00:43 | XMS_ITS | Encounter Summary ---
Author Organization [facility] Address [address] Attn: Epic Prelude ADT STU [place] [address] Care Team Providers Care Farm Supervisor Name Role Phone Aliza Bain MD Primary Care Provider Encounter Details Date Type Department Care Team (Latest Contact Info) Description 08/16/2021 Travel Social History Tobacco Use Types Packs/Day [...] and Family Not on file 07/29/2020 Attends [employer] Services Not on file 07/29 Do you [...] have Coronavirus / COVID-19? No / Unsure 08/16/2021 5:34 AM LEAF BINNER documented as of this encounter Plan of Treatment Upcoming Encounters Date Type Department Care Team (Late st Contact Info) Description 2024 11:00 AM LEAF BINNER Appointment [facility] S [facility] Manjit [address] [place] [address] 07/21/2024 9:45 AM LEAF BINNER Appointment [facility] Consultant Intern [address] [place] [phone] Kiel Vasquez MD [address] [facility] [address] [place] [address] 07/21/2024 9:53 AM LEAF BINNER Hospital Encounter [facility] Consultant Intern [address] [place] [address] Kiel Vasquez MD [address] [facility] [address] [place] [address] Jesse Lackey-fib 07/21/2024 9:53 AM LEAF BINNER - 07/21/2024 11:46 AM LEAF BINNER Surgery [facility] Consultant Intern [address] [place] [address] Kiel Vasquez MD [address] [place] [address] [address] [place] [address] Left atrial appendage closure percutaneous 07/28/2024 8:30 AM LEAF BINNER Office Visit [facility]3] Oncology and Hematology - [place] [address] [facility] [address] [place] [phone] Nahid Hickman MD [address] [facility] [address] [place] [address] 09/09/2024 1:00 PM CDT Office Visit [facility]3] Heart and Vascular At [address] [place] [address] Kiel Vasquez MD [address] [place] [address] [address] [place] [address] 12/16/2024 11:00 AM CDT Office Visit [facility] HEART AND VASCULAR EP AT [address] [place] [address] Demetrius Bowling DNP [address] [place] [address] [address] [place] [address] 02/05/2025 10:45 AM CDT Telephone Check Up [facility]3] Heart and Vascular At [address] [place] [address] 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 FNP [address] [place] [phone] documented as of this encounter Visit Diagnoses Not on filedocumented in this encounter Care Teams Farm Supervisor Relationship Specialty Start Date End Date Aliza Bain MD [address] [place] [address] PCP - General Family Practice 07/29/20 11/21/21 documented as of this encounter
--- OUTSIDE RECORDS SUMMARY | 2024-07-01 00:43 | XMS_ITS | Encounter Summary ---
Author Organization [facility] Address [address] [place] [address] Care Team Providers Care Biosolids Management Technician Name Role Phone Aliza Bain MD Primary Care Provider Reason for Visit * Reason Onset Date Comments Medication Question 01/25/2022 Encounter Details Date Type Department Care Team (Late st Contact Info) Description 01/25/2022 Telephone [facility] Heart and Vascular At [place] [address] [facility] [address] [place] [address] Kiel Vasquez MD [address] [place] [address] [address] [place] [address] Medication Question Social History Tobacco [...] Miscellaneous Notes * Telephone Encounter - Melanie Taylor RN - 01/26/2022 8:33 AM CDT Images from the original note were not included. Kiel Vasquez MD Elder, Megan M RN Caller: Unspecified (Yesterday, ??1:40 PM) Ok to hold for procedure, resume after CAMILO when deemed feasible by performing physician JG Spoke with pt about holding Eliquis and ASA. Pt states that she will need to hold Eliquis and ASA for 3 days prior to procedure. Letter faxed to Dr. Harry at [phone]. * Telephone Encounter - Moni Curry RN - 01/25/2022 1:50 PM CDT On Eliquis and Aspirin. * Telephone Encounter - Sindi Dean - 01/25/2022 1:40 PM CDT Pt wanted approval to hold her blood thinner due to a injection her primary would like to prescribeher. She would like the approval faxed over to [phone] Dr Clifford Harry Please call patient at [phone]. Thank you. documented in this encounter Plan of Treatment Upcoming Encounters Date Type Department Care Team (Late st Contact Info) Description 2024 11:00 AM CASE SUPERVISOR Appointment [facility] [address] [facility] [address] [place] [address] 07/21/2024 9:45 AM CASE SUPERVISOR Appointment [facility] Sofa Inspector [address] [place] [address] Kiel Vasquez MD [address] [facility] 2014 [place] [address] 07/21/2024 9:53 AM CASE SUPERVISOR Hospital Encounter [facility] Sofa Inspector [address] [place] [address] Kiel Vasquez MD [address] [facility] 2014 [place] [address] Paroxysmal A-fib 07/21/2024 9:53 AM CASE SUPERVISOR - 07/21/2024 11:46 AM CASE SUPERVISOR Surgery [facility] Sofa Inspector [address] [place] [address] Kiel Vasquez MD [address] [facility] 2014 [place] [address] Left atrial appendage closure percutaneous 07/28/2024 8:30 AM CASE SUPERVISOR Office Visit [facility] Oncology and Hematology - [place] [address] [facility] [address] [place] [phone] Nahid Hickman MD [address] [facility] [address] [place] [address] 09/09/2024 1:00 PM CDT Office Visit [facility] Heart and Vascular At [address] [place] [address] Kiel Vasquez MD [facility] [address] [facility] [address] [place] [address] 12/16/2024 11:00 AM CDT Office Visit [facility] HEART AND VASCULAR EP AT [address] [place] [address] Demetrius Bowling DNP [facility] [address] [facility] [address] [place] [address] 02/05/2025 10:45 AM CDT Telephone Check Up [facility] Heart and Vascular At [address] [place] [address] 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, STAKEHOLDER MANAGER [address] [place] [address] documented as of this encounter Visit Diagnoses Not on filedocumented in this encounter Care Teams Biosolids Management Technician Relationship Specialty Start Date End Date Aliza Bain MD [address] [place] [address] PCP - General Family Practice 11/22/21 documented as of this encounter
--- OUTSIDE RECORDS SUMMARY | 2024-07-01 00:43 | XMS_ITS | Encounter Summary ---
Author Organization [facility] Address [address] [place] [address] Care Team Providers Care Edging Machine Operator Name Role Phone Aliza Bain MD Primary Care Provider Reason for Visit * Auth/Cert Specialty Diagnoses / Procedures Referred By Meghana vigil Referred To Contact Cardiology Diagnoses AFIB Procedures ABLATION (PULMONARY VEIN ISOLATION) [facility] Pharmacist Aide [address] [place] [address] Referral ID Status Reason Start Date Expiration Date Visits Re quested Visits Authorized 1 1 Encounter Details Date Type Department Care Team (Late st Contact Info) Description 08/16/2021 6:34 AM WAREHOUSE WORKER Anesthesia Event [facility] Pharmacist Aide [address] [place] [address] Erickson Briceño MD [address] [place] [phone] Anesthesia Record Procedure Summary Procedure Name Responsible Anesthesiologist Anesthesia Start Time Anesthesia Stop Time ABLATION (PULMONARY VEIN ISOLATION) Erickson Briceño MD 08/16/21 0634 08/16/21 1110 Events Date Time Event Comment 08/16/2021 0634 An Start 0652 An Pause Discontinuous a nesthesia time-STOP 0715 AN Equip Check Anesthesia eq uipment and materials checked in accordance with local policy. 0728 0728 Intended Opioids 0815 An Resume Discontinuous a nesthesia time-START 0816 An Start Data 0824 Pre-Induction Immediate pre- induction anesthetic assessment performed. Vital signs as noted on graphic. 0825 An Induction 0827 An Intubation 0833 AN ANSELMO Pediatric probe inserted 0839 Anesthesia Ready 0851 AN ANSELMO Probe removed 0900 Start HFJV 1039 Stop HFJV 1051 An Extubation Emergence unev entful Awake, spontaneous respirations. Adequate muscle strength demonstrated Adequate tidal volume. Orapharynx suctioned. Extubated with positive pressure ventilation. 1104 an stop data 1110 An Stop 1110 Hand-off to Receiving Clinic hoa Post-Anesthetic transfer of care report elements to appropriate post-anesthesia recovery environment completed in accordance with procedure. Meds Name Total midazolam PF (VERSED) 1 mg/mL injection 2 mg remifentanil (ULTIVA) 2 mg injection 80 mcg lidocaine PF (XYLOCAINE MPF) 2% injectio n 2 mL propofol (DIPRIVAN) 10??mg/mL injection 160 mg propofol (DIPRIVAN) 10??mg/mL injection 392.7 mg remifentaniL (ULTIVA) 2,000 mcg in sodiu m chloride 0.9% 250 mL infusion 0.77 mg phenylephrine (LAURA-SYNEPHRIN E) 20 mg/250 mL in 0.9% sodium chloride infusion (INTRA-OP USE ONLY) 1,947 mcg phenylephrine 1 mg/10 mL (100 mcg/mL) in jection 500 mcg glycopyrrolate (ROBINUL) 0.2 mg/ mL inje ction 0.3 mg dexamethasone (DECADRON) 4 mg/mL injecti on 8 mg famotidine (pf) (PEPCID) 20 mg/2 mL inje ction 20 mg heparin 1,000 units/mL injection 6,000 U nits adenosine (ADENOCARD) 3 mg/mL injection 36 mg ondansetron (ZOFRAN) 4??mg/2 mL injectio n 4 mg protamine 10 mg/mL injection 40 mg lactated ringers infusion 500 mL lactated ringers infusion 0 mL * Agents Name Sevoflurane % Sevoflurane O2 N2O Inspired N2O O2 * Blood No blood administrations on file. Lines, Drains, and Airways Type Details Placement Removal Peripheral IV Pre-Hospital Start: No; Orientation: Right; Location: AC; Device: Angiocath; Gauge: 18 gauge; Needle Length: 1.25 in length; Insertion Attempts: 2; Patient Tolerance: tolerated well; Pain Prevention: intradermal injection 08/16/21 0640 by Gareth Kolb AA-C 10/19/23 1710 by Chelle Rivera RN ART Line Orientation: Left:; Location: radial artery; Size (Ga): 20 Ga; Removal Indication: no longer indicated; Removal Interventions: pressure dressing, direct pressure 08/16/21 0645 by Gareth Kolb AA-C 08/16/21 1145 by Celeste Queen RN Endotracheal Airway Type: ETT; Size: 7; Attempts: 1; Verification: Auscultated bilateral breath sounds, Equal chest movement, Continuous waveform capnography 08/16/21 0827 by Gareth Kolb AA-C 08/16/21 1051 by Gareth Kolb AA-C Peripheral IV Pre-Hospital Start: No; Orientation: Posterior, Right; Location: Hand; Device: Angiocath; Gauge: 20 gauge; Needle Length: 1.25 in length; Insertion Attempts: 1; Patient Tolerance: (under GA) 08/16/21 0837 by Gareth Kolb AA-C 10/19/23 1710 by Chelle Rivera RN Wound 08/16/21; 1044; No; Left; groin; puncture, surgical; 10/19/23; 1710 08/16/21 1044 by Shilpa Henderson RN 10/19/23 1710 by Chelle Rivera RN Wound 08/16/21; 1044; No; Right; groin; puncture, surgical; 10/19/23; 1710 08/16/21 1044 by Shilpa Henderson RN 10/19/23 1710 by Chelle Rivera RN documented in this encounter Social History [...] any clubs o r organizations such as samaritan groups, unions, fraternal or athletic groups, or [...] COVID-19? No / Unsure 08/16/2021 5:34 AM WAREHOUSE WORKER documented as of this encounter OR Notes * Anesthesia Procedure Notes - Erickson Briceño MD - 08/16/2021 12:20 PM WAREHOUSE WORKER Associated Order(s): ANSELMO Procedure Performed: ANSELMO Start Time: 08/16/2021 8:33 AM End Time: 08/16/2021 8:51 AM Preanesthesia Checklist: Patient identified, IV assessed, risks and benefits discussed, monitors and equipment assessed, procedure being performed at surgeon's request and anesthesia consent obtained. General Procedure Information Physician Requesting Echo: Melita Woods MD CPT Code: 64911 ICD Code for Medical Necessity: Evaluation of left atrial appendage for thrombus. Location performed: environmental laboratory technician Intubated Heart visualized Probe Insertion: Easy Probe Type: Multiplane Anesthesia Information Block performed Personally Anesthesiologist: Erickson Briceño MD Surgeon: Melita Woods MD Echocardiogram Comments: Pediatric ANSELMO probe placed easily. Glidescope utilized. Adult ANSELMO probe met resistance thus pediatric probe used. Pediatric probe placed easily. Atraumatic insertion of probe. HOUSE WORKER * Anesthesia Postprocedure Evaluation - Ezio Caraballo MD - 08/16/2021 11:34 AM CST Phase I Postanesthesia Evaluation Including Modified Daniel Score Patient seen and evaluated: Modified Daniel Score: Score: 9 (08/16/211113) COMMENTS: No apparent Anesthesia related complications RESPIRATORY FUNCTION: Respiration: able to breath and cough freely (08/16/211113) [2=able to breathe and cough freely, 1=dyspnea, limited breathing or tachypnea, 0=apnea or mechanicventilator] O2 Saturation: able to maintain O2 saturation greater than 92% on room air (08/16/211113) [2=able to maintain O2 saturation greater than 92% on room air, 1=needs O2 inhalation to maintain O2 saturation greater than 90%, 0=O2 saturation less than 90% even with O2 supplement] Resp: 17 (08/16/211113)SpO2: 100 % (08/16/211113) CARDIOVASCULAR FUNCTION: Heart Rate: 67 bpm (08/16/211113) BP: (!) 143/52 (08/16/211113) Circulation: BP within 20% of preanesthetic level (08/16/211113) [2=BP within 20% of preanesthetic level, 1=BP within 20-49% of preanesthetic level, 0=BP within 50%of preanesthetic level] MENTAL STATUS, NEURO, ACTIVITY: PATIENT PARTICIPATION IN EVALUATION:yes Consciousness: arousable on calling (08/16/211113) [2=fully awake, 1=arousable on calling, 0=not responding] Activity: able to move 4 extremities voluntarily or on command (08/16/211113) [2=able to move 4 extremities voluntarily or on command, 1=able to move 2 extremities voluntarily or on command, 0=unable to move extremities voluntarily or on command] TEMPERATURE: Temp: 36.2 ??C (08/16/211113) PAIN: NAUSEA AND VOMITING: no nausea and no vomiting POSTOPERATIVE HYDRATION: well hydrated Intake/Output Summary (Last 24 hours) at 08/16/2021 1134 Last data filed at 08/16/2021 1045 Gross per 24 hour Intake 500 ml Output -- Net 500 ml Ezio Caraballo MD 08/16/2021 11:34 AM Post Anesthesia Evaluation Vitals: Vitals Value Taken Time BP 152/52 08/16/21 1115 Temp 36.2 ??C 08/16/21 1114 Resp 17 08/16/21 1133 SpO2 100 % 08/16/21 1133 Pulse 66 08/16/21 1133 Heart Rate 66 bpm 08/16/21 1133 Vitals shown include unvalidated device data. Pain Rating: Anesthesia Post Evaluation Patient participation: patient was able to participate in the post op evaluation Level of consciousness: 0 = alert, responsive, answers simple questions appropriately, able to perform simple tasks Pain management: adequate Airway patency: patent Nausea or Vomiting: none Cardiovascular status: regular rate and rhythm Respiratory status: no respiratory symptoms Hydration status: well hydrated No complications documented. Ezio Caraballo MD HOUSE WORKER * Anesthesia Handoff - Gareth Kolb AA-C - 08/16/2021 11:10 AM CST Post-Anesthetic transfer of care report elements to appropriate post-anesthesia recovery environment completed in accordance with procedure. I completed my handoff to the receiving nurse during which we: 1. Identified the patient 2. Identified the responsible provider 3. Reviewed the pertinent medical history 4. Discussed the surgical course 5. Reviewed intra-op anesthesia management and issues during anesthesia 6. Set expectations for post-procedure period 7. Orders as necessary and appropriate for continuation of care are present in Epic. 8. Allowed opportunity for questions and acknowledgement of understanding. Vital Signs: BP: 143/52 HR: 67 SpO2: 100% RR: 14 Temp: 97.1F 11:13 AM MARIELA Zhang HOUSE WORKER * Anesthesia Procedure Notes - Gareth Kolb AA-C - 08/16/2021 9:05 AM WAREHOUSE WORKER Associated Order(s): Airway Airway Date/Time: 08/16/2021 8:27 AM Location: OR Plan: routine intubation Patient Identity Confirmed by: Verbally with patient and armband Airway: not difficult Performed by: AA: Gareth Kolb AA-C Indications and Patient Condition: Indications for Airway Management: Anesthesia Preoxygenated: Yes Patient Position: Sniffing Mask Difficulty Assessment: 0 - not attempted Plan to extubate at end of case: Yes Final Airway Details: Final Airway Type: Endotracheal airway Final Endotracheal Airway: ETT Cuffed: Yes Cuff Volume (mL): 6 Technique Used for Successful ETT Placement: Video laryngoscopy Devices/Methods Used in Placement: Intubating stylet and video laryngoscope Insertion Site: Oral Laryngoscope Blade/Videolaryngoscope Blade Size: 3 ETT Size (mm): 7.0 Measured from: Teeth ETT to Teeth (cm): 20 Tube secured with: Tape and oral airway Placement Verified by: auscultation, end tidal CO2 and chest rise Cormack-Lehane Classification: Grade IIa - partial view of glottis Number of Attempts at Approach: 1 Additional Comments: Pt w/ remote h/o myasthenia gravis; no paralytic given for intubation. + LTA kit used HOUSE WORKER * Anesthesia Procedure Notes - Gareth Kolb AA-C - 08/16/2021 7:52 AM WAREHOUSE WORKER Associated Order(s): Arterial Line Insertion Arterial Line Insertion Start Time: 08/16/2021 6:45 AM End Time: 08/16/2021 6:50 AM Patient location during procedure: Pre-op Anesthesiologist: Gareth Kolb AA-C time out called Patient was prepped and draped in usual sterile fashion Indications: multiple ABGs and hemodynamic monitoring Local Anesthetic: lidocaine 2% without epinephrine Anesthetic total: 0.4 mL Patient sedated: yes Sedation type: anxiolysis Sedatives: midazolam and see MAR for details Vitals: Vital signs were monitored during sedation. Hand hygiene performed prior to procedure Sterile Barriers: gloves, cap and mask Preparation: skin prepped with ChloraPrep Skin prep agent dried: skin prep agent completely dried prior to procedure Patient position: flat Location: left radial Site selection rationale: site of highest NIBP Seldinger technique used Catheter type: radial kit Catheter size: 20 G Catheter Length (in.): 1.75 Comfort Identification: palpation technique Number of attempts: 1 Successful placement: yes Assessment: blood return through port Procedure uneventful Post-procedure: dressing applied and line secured HOUSE WORKER * Anesthesia Preprocedure Evaluation - Erickson Briceño MD - 08/16/2021 7:26 AM CST Relevant Problems No relevant active problems Anesthesia Evaluation Anesthesia Plan ASA Final: 3 General Intravenous induction Oral ETT airway maintenance Anesthetic plan and risks discussed with Patient. Use of blood products: consented to blood products. Plan discussed with Anesthesiologist Finisher Card Tender. Post-op Pain Control Plan to use IV or IM medication for post-op pain control. Smoking Compliance Patient did not smoke on day of surgery Pre-Anesthesia Evaluation 08/16/2021 7:27 AM Name: Cassandra Martinez Age: 76 y.o. Sex: female CSN: [id number] Procedure: Procedure(s): ABLATION (PULMONARY VEIN ISOLATION) Surgeons/Assistants: Surgeon(s) and Role: * Melita Woods MD - Primary Allergies Allergen Reactions ??? Penicillins Hives Medications Prior to Admission Medication Sig Dispense Refill Last Dose ??? pantoprazole (PROTONIX) 20 mg Tablet, Delayed Release (E.C.) Take 20 mg by mouth 2 times daily.08/16/2021 at 0900 ??? diltiaZEM (CARDIZEM CD) 120 mg Controlled Delivery 24 hour capsule Take 2 Capsules (240 mg) by mouth daily for 15 days. 30 Capsule 0 08/16/2021 at 0430 ??? apixaban (Eliquis) 5 mg tablet Take 1 Tablet (5 mg) by mouth 2 times daily. 60 Tablet 6 08/15/2021 at 0900 ??? cyanocobalamin (VITAMIN B-12) 100 mcg tablet Take 100 mcg by mouth daily. 08/15/2021 at Unknown time ??? calcium-cholecalciferol (OS-SUSAN 500+D) 500 mg(1,250mg) -200 unit tablet Take 1 Tablet by mouth daily. 08/15/2021 at Unknown time ??? magnesium oxide 250 mg magnesium Tablet Take by mouth. 08/15/2021 at Unknown time ??? aspirin (ECOTRIN EC) 81 mg Tablet, Delayed Release (E.C.) Take 81 mg by mouth daily. 08/15/2021 at 0900 ??? cholecalciferol, vitamin D3, (VITAMIN D3 ORAL) Take by mouth. 08/15/2021 at Unknown time ??? hydroCHLOROthiazide 25 mg tablet TAKE 1 TABLET BY MOUTH EVERY DAY 08/15/2021 at Unknown time ??? olmesartan (BENICAR) 40 mg tablet Take 40 mg by mouth daily. Medication bottle is Olmesartan Medoxomil 40 MG tab1 tab by mouth daily 08/16/2021 at 0430 ??? HYDROcodone-acetaminophen (NORCO) 5-325 mg tablet Take 1 Tablet by mouth every 4 hours as needed for Pain. Max Daily Amount: 6 Tablets 42 Tablet 0 08/14/2021 ??? glucosamine sulfate 500 mg Capsule Take 500 mg by mouth. Patient Active Problem List Diagnosis Date Noted ??? Exertional shortness of breath ??? MGUS (monoclonal gammopathy of unknown significance) 03/15/2021 ??? Benign hypertension 10/01/2020 ??? Carotid artery disease 10/01/2020 ??? Atrial fibrillation ??? Non-small cell cancer of right lung 08/13/2020 Past Medical History: Diagnosis Date ??? Arthritis ??? Dyspnea on exertion ??? GERD (gastroesophageal reflux disease) ??? HTN (hypertension) ??? Hx of degenerative disc disease ??? Injury of back DDD ??? Malignant neoplasm of lung Past Surgical History: Procedure Laterality Date ??? HX ANKLE SURGERY ??? HX COLONOSCOPY W/ POLYPECTOMY ??? HX HYSTERECTOMY ??? HX THORACOTOMY Right 08/31/2020 THORACOTOMY performed by Edinson Ferrell MD at [facility] OR ??? HX TONSILLECTOMY ??? HX TRIGGER FINGER REPAIR ??? TN RMVL LUNG OTHER THAN PNEUMONECTOMY 1 LOBE LOBECT Right 08/31/2020 LUNG LOBECTOMY performed by Edinson Ferrell MD at [facility] OR Social History Tobacco Use ??? Smoking status: Former Smoker Packs/day: 0.50 Years: 40.00 Pack years: 20.00 Types: Cigarettes Quit date: 08/19/1999 Years since quittin.0 ??? Smokeless tobacco: Never Used Substance Use Topics ??? Alcohol use: Yes Comment: occasional Family History Problem Relation Name Age of Onset ??? Heart Disease Father ??? Heart Disease Mother ??? Stroke Sister ??? Asthma Sister Previous Anesthesia Problems: No major problems Review of Systems Cardiovascular: No current complaint Respiratory: No current complaint Gastroenterology: No current complaint PHYSICAL EXAM Temp 36.8 ??C (Temporal) Weight: Height: Ht Readings from Last 1 Encounters: 06/30/21 5' 3 (1.6 m) BMI: There is no height or weight on file to calculate BMI. Airway: Unremarkable Lungs: Breath sounds bilateral Heart:: irreg Neuro: No major deficit noted LABS Lab Results Component Value Date WBC [...] 1.31 (H) 08/16/2021 GLUCOSE 112 (H) 08/16/2021 ANIONGAP 14 08/16/2021 Lab Results Component Value Date INR 1.2 (H) 08/16/2021 PT 16.2 (H) 08/16/2021 No results found for: HCGURPOC, HCGQUALUR, HCGQUAL, HCGQUANT, HCGINTACT Lab Results Component Value Date GLUCPOC 113 (H) 08/16/2021 Other Studies/Considerations: Cardiac data and history reviewed. Arterial line, ANSELMO, general anesthesia, risks explained. Risks/Alternatives discussed. Questions solicited and answered. ASA 4 Erickson Briceño MD HOUSE WORKER documented in this encounter Plan of Treatment Upcoming Encounters Date Type Department Care Team (Late st Contact Info) Description 2024 11:00 AM WAREHOUSE WORKER Appointment [facility] [address] [place] [address] 07/21/2024 9:45 AM WAREHOUSE WORKER Appointment [facility] Pharmacist Aide [address] [place] [address] Kiel Vasquez MD [address] [facility] [address] [place] [address] 07/21/2024 9:53 AM WAREHOUSE WORKER Hospital Encounter [facility] Pharmacist Aide [address] [place] [address] Kiel Vasquez MD [address] [facility] [address] [place] [address] Jesse Lackey-fib 07/21/2024 9:53 AM WAREHOUSE WORKER - 07/21/2024 11:46 AM WAREHOUSE WORKER Surgery [facility] Pharmacist Aide [address] [place] [address] Kiel Vasquez MD [address] [facility] [address] [place] [address] Left atrial appendage closure percutaneous 07/28/2024 8:30 AM WAREHOUSE WORKER Office Visit [facility] Oncology and Hematology - [place] [address] [facility] [address] [place] [id number] Nahid Hickman MD [address] [facility] [address] [place] [address] 09/09/2024 1:00 PM CDT Office Visit [facility] Heart and Vascular At [address] [place] [address] Kiel Vasquez MD [facility] [address] [facility] [address] [place] [address] 12/16/2024 11:00 AM CDT Office Visit [facility] HEART AND VASCULAR EP AT [place] [address] [facility] [address] [place] [address] Demetrius Bowling DNP [facility] [address] [facility] [address] [place] [address] 02/05/2025 10:45 AM CDT Telephone Check Up [facility] Heart and Vascular At [address] [place] [address] 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 FNP [facility] [place] [address] documented as of this encounter Procedures Procedure Name Priority Date/Time Associated Diagnosis Comments TN ECHO TRANSESOPHAG R-T 2D W/PRB IMG ACQUISJ I&R Routine 08/16/2021 12:20 PM WAREHOUSE WORKER TN ANES INSERT ENDOTRACHEAL AIRWAY Routine 08/16/2021 8:27 AM WAREHOUSE WORKER TN ANES INSERT CATH, ART, PERCUT, SHORTTERM Routine 08/16/2021 7:52 AM WAREHOUSE WORKER documented in this encounter Results * TN ECHO TRANSESOPHAG R-T 2D W/PRB IMG ACQUISJ I&R (08/16/2021 12:20 PM WAREHOUSE WORKER) Narrative Erickson Briceño MD - 08/16/2021 12:20 PM WAREHOUSE WORKER Erickson Briceño MD ? 08/16/2021 12:23 PM Procedure Performed: ANSELMO ? Start Time: ??08/16/2021 8:33 AM ? End Time: ?? 08/16/2021 8:51 AM Preanesthesia Checklist: Patient identified, IV assessed, risks and benefits discussed, monitors and equipment assessed, procedure being performed at surgeon's request and anesthesia consent obtained. General Procedure Information Physician Requesting Echo: Melita Woods MD CPT Code: ??82349 ICD Code for Medical Necessity: ??Evaluation of left atrial appendage for thrombus. Location performed: ??environmental laboratory technician Intubated Heart visualized Probe Insertion: ??Easy Probe Type: ??Multiplane Anesthesia Information Block performed Personally Anesthesiologist: ??Erickson Briceño MD Surgeon: ??Melita Woods MD Echocardiogram Comments: ? Pediatric ANSELMO probe placed easily. Glidescope utilized. Adult ANSELMO probe met resistance thus pediatric probe used. Pediatric probe placed easily. Atraumatic insertion of probe. Erickson Briceño MD PROCEDURE/MINOR SURG ICAL ORDERABLES * TN ANES INSERT ENDOTRACHEAL AIRWAY (08/16/2021 8:27 AM WAREHOUSE WORKER) Narrative Gareth Kolb AA-C - 08/16/2021 8:27 AM WAREHOUSE WORKER Gareth Kolb AA-C ? 08/16/2021 ??9:07 AM Airway Date/Time: 08/16/2021 8:27 AM Location: OR Plan: routine intubation Patient Identity Confirmed by: ??Verbally with patient and armband Airway: not difficult Performed by: AA: ??Gareth Kolb AA-C Indications and Patient Condition: ??Indications for Airway Management: ??Anesthesia ??Preoxygenated: Yes ?Patient Position: ??Sniffing ??Mask Difficulty Assessment: ??0 - not attempted ??Plan to extubate at end of case: Yes ?? Final Airway Details: ??Final Airway Type: ??Endotracheal airway ??Final Endotracheal Airway: ??ETT ??Cuffed: Yes ?Cuff Volume (mL): ??6 ??Technique Used for Successful ETT Placement: ??Video laryngoscopy ??Devices/Methods Used in Placement: ??Intubating stylet and video laryngoscope ??Insertion Site: ??Oral ??Laryngoscope Blade/Videolaryngoscope Blade Size: ??3 ??ETT Size (mm): ??7.0 ??Measured from: ??Teeth ??ETT to Teeth (cm): ??20 ??Tube secured with: ??Tape and oral airway ??Placement Verified by: auscultation, end tidal CO2 and chest rise ?Cormack-Lehane Classification: ??Grade IIa - partial view of glottis ??Number of Attempts at Approach: ??1 Additional Comments: ?? Pt w/ remote h/o myasthenia gravis; no paralytic given for intubation. + LTA kit used Erickson Briceño MD PROCEDURE/MINOR SURG ICAL ORDERABLES * TN ANES INSERT CATH, ART, PERCUT, SHORTTERM (08/16/2021 7:52 AM WAREHOUSE WORKER) Narrative Gareth Kolb AA-C - 08/16/2021 7:52 AM WAREHOUSE WORKER Gareth Kolb AA-C ? 08/16/2021 ??7:53 AM Arterial Line Insertion Start Time: 08/16/2021 6:45 AM End Time: 08/16/2021 6:50 AM Patient location during procedure: Pre-op Anesthesiologist: Gareth Kolb AA-C time out called Patient was prepped and draped in usual sterile fashion Indications: multiple ABGs and hemodynamic monitoring Local Anesthetic: lidocaine 2% without epinephrine Anesthetic total: 0.4 mL Patient sedated: yes Sedation type: anxiolysis Sedatives: midazolam and see MAR for details Vitals: Vital signs were monitored during sedation. Hand hygiene performed prior to procedure Sterile Barriers: gloves, cap and mask Preparation: skin prepped with ChloraPrep Skin prep agent dried: skin prep agent completely dried prior to procedure Patient position: flat Location: left radial Site selection rationale: site of highest NIBP Seldinger technique used Catheter type: radial kit Catheter size: 20 G Catheter Length (in.): 1.75 Comfort Identification: palpation technique Number of attempts: 1 Successful placement: yes Assessment: blood return through port Procedure uneventful Post-procedure: dressing applied and line secured Erickson Briceño MD PROCEDURE/MINOR SURG ICAL ORDERABLES documented in this encounter Visit Diagnoses Not on filedocumented in this encounter Administered Medications Inactive Administered Medications - up to 3 most recent administrations Medication Order MAR Action Action Date Dose Rate Site adenosine (ADENOCARD) 3 mg/mL injection IV, INTRA-PROCEDURE PRN, Starting on Sun08/16/21 at 1013, Until Sun08/16/21 at 1112, Routine, Anesthesia Intra-op Given 08/16/2021 10:29 AM WAREHOUSE WORKER 18 mg Given 08/16/2021 10:13 AM WAREHOUSE WORKER 18 mg dexamethasone (DECADRON) injection IV, INTRA-PROCEDURE PRN, Starting on Sun08/16/21 at 0848, Until Sun08/16/21 at 1112, Routine, Anesthesia Intra-op Given 08/16/2021 8:48 AM WAREHOUSE WORKER 8 mg famotidine PF (PEPCID) 20 mg/2 mL injection IV, INTRA-PROCEDURE PRN, Starting on Sun08/16/21 at 0848, Until Sun08/16/21 at 1112, Routine, Anesthesia Intra-op Given 08/16/2021 8:48 AM WAREHOUSE WORKER 20 mg glycopyrrolate (ROBINUL) injection IV, INTRA-PROCEDURE PRN, Starting on Sun08/16/21 at 0846, Until Sun08/16/21 at 1112, Routine, Anesthesia Intra-op Given 08/16/2021 8:46 AM WAREHOUSE WORKER 0.3 mg heparin injection IV, INTRA-PROCEDURE PRN, Starting on Sun08/16/21 at 0901, Until Sun08/16/21 at 1112, Routine, Anesthesia Intra-op Given 08/16/2021 9:01 AM WAREHOUSE WORKER 6,000 Units lactated ringers infusion IV, INTRA-PROCEDURE CONTINUOUS PRN, Starting on Sun08/16/21 at 0640, Until Sun08/16/21 at 1112, Routine, Anesthesia Intra-op New Bag 08/16/2021 6:40 AM WAREHOUSE WORKER lactated ringers infusion IV, INTRA-PROCEDURE CONTINUOUS PRN, Starting on Sun08/16/21 at 0839, Until Sun08/16/21 at 1112, Routine, Anesthesia Intra-op New Bag 08/16/2021 8:39 AM WAREHOUSE WORKER 100 mL/hr lidocaine PF 2% (XYLOCAINE MPF) injection IV, INTRA-PROCEDURE PRN, Starting on Sun08/16/21 at 0825, Until Sun08/16/21 at 1112, Routine, Anesthesia Intra-op Given 08/16/2021 8:25 AM WAREHOUSE WORKER 2 mL midazolam (PF) (VERSED) injection IV, INTRA-PROCEDURE PRN, Starting on Sun08/16/21 at 0641, Until Sun08/16/21 at 1112, Routine, Anesthesia Intra-op Given 08/16/2021 6:43 AM WAREHOUSE WORKER 1 mg Given 08/16/2021 6:41 AM WAREHOUSE WORKER 1 mg ondansetron (ZOFRAN) 4 mg/2 mL injection IV, INTRA-PROCEDURE PRN, Starting on Sun08/16/21 at 1014, Until Sun08/16/21 at 1112, Routine, Anesthesia Intra-op Given 08/16/2021 10:14 AM WAREHOUSE WORKER 4 mg phenylephrine (LAURA-SYNEPHRINE) 20 mg/250 mL in 0.9% sodium chloride infusion (INTRA-OP USE ONLY) IV, INTRA-PROCEDURE CONTINUOUS PRN, Starting on Sun08/16/21 at 0839, Until Sun08/16/21 at 1112, Anesthesia Intra-op Restarted 08/16/2021 10:12 AM WAREHOUSE WORKER 0.2 mcg/kg/min 9.9 mL/hr Rate Change 08/16/2021 9:26 AM WAREHOUSE WORKER 0.2 mcg/kg/min 9.9 mL/h r Rate Change 08/16/2021 8:45 AM WAREHOUSE WORKER 0.5 mcg/kg/min 24.75 mL /hr phenylephrine 1 mg/10 mL (100 mcg/mL) injection IV, INTRA-PROCEDURE PRN, Starting on Sun08/16/21 at 0847, Until Sun08/16/21 at 1112, Routine, Anesthesia Intra-op Given 08/16/2021 10:14 AM WAREHOUSE WORKER 100 mcg Given 08/16/2021 8:47 AM WAREHOUSE WORKER 100 mcg Given 08/16/2021 8:41 AM WAREHOUSE WORKER 100 mcg propofoL (DIPRIVAN) injection IV, INTRA-PROCEDURE CONTINUOUS PRN, Starting on Sun08/16/21 at 0840, Until Sun08/16/21 at 1112, Anesthesia Intra-op New Bag 08/16/2021 8:40 AM WAREHOUSE WORKER 50 mcg/kg/min 19.8 mL/hr propofoL (DIPRIVAN) injection IV, INTRA-PROCEDURE PRN, Starting on Sun08/16/21 at 0825, Until Sun08/16/21 at 1112, Anesthesia Intra-op Given 08/16/2021 10:05 AM WAREHOUSE WORKER 40 mg Given 08/16/2021 9:39 AM WAREHOUSE WORKER 40 mg Given 08/16/2021 8:25 AM WAREHOUSE WORKER 80 mg protamine 10 mg/mL injection IV, INTRA-PROCEDURE PRN, Starting on Sun08/16/21 at 1041, Until Sun08/16/21 at 1112, Routine, Anesthesia Intra-op Given 08/16/2021 10:45 AM WAREHOUSE WORKER 20 mg Given 08/16/2021 10:43 AM WAREHOUSE WORKER 15 mg Given 08/16/2021 10:41 AM WAREHOUSE WORKER 5 mg remifentaniL (ULTIVA) 2 mg injection IV, INTRA-PROCEDURE PRN, Starting on Sun08/16/21 at 0824, Until Sun08/16/21 at 1112, Routine, Anesthesia Intra-op Given 08/16/2021 8:24 AM WAREHOUSE WORKER 80 mcg remifentaniL (ULTIVA) 2,000 mcg in sodium chloride 0.9% 250 mL infusion IV, INTRA-PROCEDURE CONTINUOUS PRN, Starting on Sun08/16/21 at 0840, Until Sun08/16/21 at 1112, Anesthesia Intra-op Rate Change 08/16/2021 10:12 AM WAREHOUSE WORKER 0.1 mcg/kg/min 49.5 mL/hr Rate Change 08/16/2021 10:07 AM WAREHOUSE WORKER 0.15 mcg/kg/min 74.25 mL/hr Rate Change 08/16/2021 9:05 AM WAREHOUSE WORKER 0.1 mcg/kg/min 49.5 mL/ hr documented in this encounter Care Teams Edging Machine Operator Relationship Specialty Start Date End Date Aliza Bain MD [address] [place] [address] PCP - General Family Practice 07/29/20 11/21/21 documented as of this encounter
--- OUTSIDE RECORDS SUMMARY | 2024-07-01 00:43 | XMS_ITS | Encounter Summary ---
Author Organization [facility] Address [address] [place] [address] Care Team Providers Care Title One Reading Teacher Name Role Phone Aliza Bain MD Primary Care Provider Reason for Referral * CT Scan (Routine) - Closed Specialty Diagnoses / Procedures Referred By Contac t Referred To Contact Diagnoses Malignant neoplasm of upper lobe of right lung Procedures CT CHEST WO CONTRAST Nahid Hickman MD [address] [facility] [address] [place] [address] [place] [address] Referral ID Status Reason Start Date Expiration Date V isits Requested Visits Authorized [id number] Closed [facility] CTS 02/24/2022 06/17/2022 1 1 Reason for Visit * Reason Comments Follow Up 6 month f/u with lab s and CT * Eval and Treat (Routine) - Closed Specialty Diagnoses / Procedures Referred By Contac t Referred To Contact Oncology Diagnoses Malignant neoplasm of unspecified part of right bronchus or lung (CMS/HCC) Procedures Office visit level 3-5 Aliza Bain MD [address] [place] [address] [facility] Oncology And Hematology [place] [address] [place] [address] [address] [place] [address] Referral ID Status Reason Start Date Expiration Date Visits Re quested Visits Authorized [id number] Closed 11/23/2021 05/22/2022 12 12 Encounter Details Date Type Department Care Team (Late st Contact Info) Description 11/23/2021 9:45 AM CDT Office Visit [facility] Oncology and Hematology - [place] [address] [facility] [address] [place] [address] Nahid Hickman MD [address] [facility] [address] [place] [address] Malignant neoplasm of upper lobe of right lung (Primary Dx); Chronic anemia; MGUS (monoclonal gammopathy of unknown significance) Social [...] and Family Not on file 07/29/2020 Attends [employer] Not on file 07/29 Do you belong to any clubs o r organizations such as orthodox groups, unions, fraternal or athletic groups, [...] as of this encounter Progress Notes * Nahid Hickman MD - 11/23/2021 10:47 AM CDT HEMATOLOGY / ONCOLOGY PROGRESS NOTE Patient Identification: Name: Cassandra Martinez Age: 76 y.o. Sex: female : 1945 DIAGNOSIS ?? 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 Is statuspost CT-guided biopsy of right upper lobe lung mass on July 19, 2020 that showed well differentiated adenocarcinoma. Molecular profile showed positive K-fifi mutation in exon 2 and PD-L1 expressionof 2%. Negative ALK gene rearrangement. CURRENT TREATMENT Surveillance TREATMENT HISTORY Right upper lobe lobectomy done on August 31, 2020. SUBJECTIVE Patient came into the office for follow-up visit. Since her last visit she had ablation done for atrial fibrillation in August 2021. Patient developed abdominal pain after colonoscopy and CT scan finding showed laceration of the spleen. 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 She is now feeling better. She has some tiredness and fatigue and shortness of breath. No other new complaints. Review of system Constitutional: denies fevers, sweats, complain of tiredness and fatigue HEENT: denies sinus congestion, hearing or vision problems Respiratory: denies cough,, complain of dyspnea on exertion Cardiovascular: denies chest pain, exertional chest pressure/discomfort, nausea, syncope, complain of shortness of breath and dyspnea on exertion. GI: denies constipation, diarrhea, dsyphagia, refluxsymptoms, vomiting, melena : denies dysuria, frequency, incontinence, urgency Integumentary system: no lymphadenopathy, sweats, flushing Musculoskeletal: denies: myalgia, arthralgia, Neurological: denies blurry or disturbed vision, numbness/weakness, dizziness Skin: No lumps, bumps or rashes. 12 point review system was reviewed and as above Objective: [...] ferritin 31 vitamin B12 more than 1000 Assessment: Plan: Patient Active Problem List Diagnosis Date Noted ??? Exertional shortness of breath ??? MGUS (monoclonal gammopathy of unknown significance) 03/15/2021 ??? Benign hypertension 10/01/2020 ??? Carotid artery disease 10/01/2020 ??? Atrial fibrillation ??? Non-small cell cancer of right lung 08/13/2020 ?? T2 N0 MX stage IB well-differentiated adenocarcinoma [...] gene rearrangement. CT chest done on November 16, 2021 showed stable changes of the right upper lobe lobectomy. I will repeat CT chest in 6 months. Anemia. Vitamin B12 level came back of more than 1000. I have instructed her to take vitamin B12 1000 mcg daily after holding it for 1 week. Iron level came back slightly low. I have instructed her to take iron 325 mg daily. We will repeat labs in 6 months. Elevated serum protein. We will repeat protein level in 6 months. Atrial fibrillation. Status post ablation. History of MGUS. Repeat myeloma testing will be done in next visit. TOBACCO COUNSELING She is not a tobacco user. 11/23/2021 Nahid Hickman MD documented in this encounter Plan of Treatment Upcoming Encounters Date Type Department Care Team (Late st Contact Info) Description 2024 11:00 AM LENS GAUGER Appointment [facility] [address] [place] [address] [place] [address] 07/21/2024 9:45 AM LENS GAUGER Appointment [facility] Program Proposals Coordinator [address] [place] [phone] Kiel Vasquez MD [address] [facility] [address] [place] [address] 07/21/2024 9:53 AM LENS GAUGER Hospital Encounter [facility] Program Proposals Coordinator [address] [place] [phone] Kiel Vasquez MD [address] [place] [address] 2014 [place] [address] Paroxysmal A-fib 07/21/2024 9:53 AM LENS GAUGER - 07/21/2024 11:46 AM LENS GAUGER Surgery [facility] Program Proposals Coordinator [address] [place] [address] Kiel Vasquez MD [address] [place] [address] 2014 [place] [address] Left atrial appendage closure percutaneous 07/28/2024 8:30 AM LENS GAUGER Office Visit [facility] Oncology and Hematology - [place] [address] [facility] [address] [place] [address] Nahid Hickman MD [address] [facility] [address] [place] [address] 09/09/2024 1:00 PM CDT Office Visit [facility] Heart and Vascular At [address] [place] [address] Kiel Vasquez MD [address] [place] [address] 2014 [place] [address] 12/16/2024 11:00 AM CDT Office Visit [facility] HEART AND VASCULAR EP AT [address] [place] [address] Demetrius Bowling DNP [address] [place] [address] 2014 [place] [address] 02/05/2025 10:45 AM CDT Telephone Check Up [facility] Heart and Vascular At [address] [place] [address] 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 FNP [facility] [place] [address] Scheduled Orders Name Type Priority Associated Diagnoses Orde r Schedule COMPREHENSIVE METABOLIC PANEL Lab Stat Chronic anemia Expected: 05/25/2022, Expires: 11/23/2022 FERRITIN Lab Routine Chronic anemia Expected: 05/25/2022, Expires: 11/23/2022 IRON, TIBC, AND PERCENT SATURATION Lab Routine Chronic anemia Expected: 05/25/2022, Expires: 11/23/2022 CT CHEST WO CONTRAST Imaging Routine Malignant neoplasm of upper lobe of right lung Expected: 05/25/2022, Expires: 11/23/2022 KAPPA/LAMBDA, FREE LIGHT CHAINS Lab Routine MGUS (monoclonal gammopathy of unknown significance) Expected: 05/25/2022, Expires: 11/23/2022 PROTEIN ELECTROPHORESIS W/REFLEX,SERUM Lab Routine MGUS (monoclonal gammopathy of unknown significance) Expected: 05/25/2022, Expires: 11/23/2022 documented as of this encounter Visit Diagnoses Diagnosis Malignant neoplasm of upper lobe of right lung- Primary Malignant neoplasm of upper lobe, bronchus or lung Chronic anemia Anemia, unspecified MGUS (monoclonal gammopathy of unknown significance) Monoclonal paraproteinemia Paroxysmal atrial fibrillation- Primary Atrial fibrillation Paroxysmal A-fib Atrial fibrillation Paroxysmal A-fib Atrial fibrillation documented in this encounter Care Teams Title One Reading Teacher Relationship Specialty Start Date End Date Aliza Bain MD [address] [place] [address] PCP - General Family Practice 11/22/21 documented as of this encounter
--- OUTSIDE RECORDS SUMMARY | 2024-07-01 00:43 | XMS_ITS | Encounter Summary ---
Author Organization [facility] Address [address] [place] [address] Care Team Providers Care Blood Splatter Analyst Name Role Phone Aliza Bain MD Primary Care Provider Reason for Visit * Reason Onset Date Comments Medication Question 10/18/2021 Encounter Details Date Type Department Care Team (Late st Contact Info) Description 10/18/2021 Telephone [facility] Heart and Vascular At [place] [address] [facility] [address] [place] [address] Kiel Vasquez MD [address] [place] [address] 2014 [place] [address] Medication Question Social History Tobacco [...] Telephone Encounter - Carmen Cedeño RN - 10/19/2021 9:04 AM CDT LMOM with Dr. Vasquez's recs. * Telephone Encounter - Carmen Cedeño RN - 10/19/2021 9:00 AM CDT Looks like its working well, I would stay on it JG * Telephone Encounter - Moni Curry RN - 10/18/2021 3:45 PM CDT Patient's primary care doctor put patient on Tiadylt ER 120mg daily for a few days and then wanted her to check in with Dr. Vasquez to see if she should stay on the medication. Patient has been feeling well. HR in the morning is in the 80's, in the evenings it is in the 60's. BP ranging from 140's to 170's during the day and in the evening its between 130's to 150's. * Telephone Encounter - Sarah Welsh - 10/18/2021 3:22 PM CDT Patient's PCP prescribed diltiazem and told her to ask if it's okay that she takes it.Please call Cassandra at [phone] thank you. documented in this encounter Plan of Treatment Upcoming Encounters Date Type Department Care Team (Late st Contact Info) Description 2024 11:00 AM MOISTURE CONDITIONER OPERATOR Appointment [facility] [address] [place] [address] [place] [address] 07/21/2024 9:45 AM MOISTURE CONDITIONER OPERATOR Appointment [facility] [address] [place] [address] Kiel Vasquez MD [address] [facility] 2014 [place] [address] 07/21/2024 9:53 AM MOISTURE CONDITIONER OPERATOR Hospital Encounter [facility] [address] [place] [address] Kiel Vasquez MD [address] [facility] 2014 [place] [address] Jesse Lackey-fib 07/21/2024 9:53 AM MOISTURE CONDITIONER OPERATOR - 07/21/2024 11:46 AM MOISTURE CONDITIONER OPERATOR Surgery [facility] [address] [place] [address] Kiel Vasquez MD [address] [facility] 2014 [place] [address] Left atrial appendage closure percutaneous 07/28/2024 8:30 AM MOISTURE CONDITIONER OPERATOR Office Visit [facility] Oncology and Hematology - [place] [address] [facility] 200 [place] [address] Nahid Hickman MD [address] [facility] [address] [place] [address] 09/09/2024 1:00 PM CDT Office Visit [facility] Heart and Vascular At [address] [place] [address] Kiel Vasquez MD [facility] [address] [facility] 2014 [place] [address] 12/16/2024 11:00 AM CDT Office Visit [facility] HEART AND VASCULAR EP AT [address] [place] [address] Demetrius Bowling DNP [address] [place] [address] 2014 [place] [address] 02/05/2025 10:45 AM CDT Telephone Check Up [facility] Heart and Vascular At [address] [place] [address] 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 FNP [place] [address] documented as of this encounter Visit Diagnoses Not on filedocumented in this encounter Care Teams Blood Splatter Analyst Relationship Specialty Start Date End Date Aliza Bain MD [address] [place] [address] PCP - General Family Practice 07/29/20 11/21/21 documented as of this encounter
--- OUTSIDE RECORDS SUMMARY | 2024-07-01 00:43 | XMS_ITS | Encounter Summary ---
Author Organization [facility] Address [address] [place] [address] Care Team Providers Care Health Insurance Specialist Name Role Phone Aliza Bain MD Primary Care Provider Encounter Details Date Type Department Care Team (Late st Contact Info) Description 10/26/2021 Abstract [facility] Oncology and Hematology - [place] [address] [place] [address] Keiry Vincent Social History Tobacco Use Types Packs/Day Years [...] st Contact Info) Description 2024 11:00 AM SOCIAL CONTACT WORKER Appointment [facility] [address] [place] [address] [place] [address] 07/21/2024 9:45 AM SOCIAL CONTACT WORKER Appointment [facility] Treatment Counselor [address] [place] [address] Kiel Vasquez MD [address] [facility] 2014 [place] [address] 07/21/2024 9:53 AM SOCIAL CONTACT WORKER Hospital Encounter [facility] Treatment Counselor [address] [place] [address] Kiel Vasquez MD [address] [facility] 2014 [place] [address] Jesse Lackey-fib 07/21/2024 9:53 AM SOCIAL CONTACT WORKER - 07/21/2024 11:46 AM SOCIAL CONTACT WORKER Surgery [facility] Treatment Counselor [address] [place] [address] Kiel Vasquez MD [address] [place] [address] 2014 [place] [address] Left atrial appendage closure percutaneous 07/28/2024 8:30 AM SOCIAL CONTACT WORKER Office Visit [facility] Oncology and Hematology - [place] [address] [facility] 200 [place] [address] Nahid Hickman MD [address] [facility] [address] [place] [address] 09/09/2024 1:00 PM CDT Office Visit [facility] Heart and Vascular At [address] [place] [address] Kiel Vasquez MD [address] [place] [address] 2014 [place] [address] 12/16/2024 11:00 AM CDT Office Visit [facility] HEART AND VASCULAR EP AT [address] [place] [address] Demetrius Bowling DNP [address] [place] [address] 2014 [place] [address] 02/05/2025 10:45 AM CDT Telephone Check Up [facility] Heart and Vascular At [address] [place] [address] 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 FNP [address] [place] [phone] documented as of this encounter Visit Diagnoses Not on filedocumented in this encounter Care Teams Health Insurance Specialist Relationship Specialty Start Date End Date Aliza Bain MD [address] [place] [address] PCP - General Family Practice 07/29/20 11/21/21 documented as of this encounter
--- OUTSIDE RECORDS SUMMARY | 2024-07-01 00:43 | XMS_ITS | Encounter Summary ---
Author Organization [facility] Address [address] [place] [address] Care Team Providers Care Juvenile Officer Name Role Phone Aliza Bain MD Primary Care Provider Reason for Visit * Reason Comments Follow Up AFIB Encounter Details Date Type Department Care Team (Late st Contact Info) Description 12/15/2021 1:00 PM CDT Office Visit [facility] Heart and Vascular At [address] [place] [address] Kiel Vasquez MD [address] [place] [address] [address] [place] [address] Paroxysmal atrial fibrillation (Primary Dx); Benign hypertension; Carotid artery disease, unspecified laterality, unspecified type; Chronic diastolic dysfunction Social History Tobacco Use Types Packs/Day Years [...] r organizations such as pentecostal groups, unions, [employer] or athletic groups, or school groups? Yes [...] suspected to have Coronavirus/COVID-19? No / Unsure 12/15/2021 1:08 PM CDT documented as of this encounter Last Filed Vital Signs Vital Sign Reading Time Taken Comments Blood Pressure 140/68 12/15/2021 1:14 PM CDT Pulse 58 12/15/2021 1:14 PM CDT Temperature - - Respiratory Rate - - Oxygen Saturation 98% 12/15/2021 1:14 PM CDT Inhaled Oxygen Concentration - - Weight 66.3 kg (146 lb 3.2 oz) 12/15/2021 1:14 P M CDT Height 160 cm (5' 3 ) 12/15/2021 1:14 PM CDT Body Mass Index 25.9 12/15/2021 1:14 PM CDT documented in this encounter Progress Notes * Talia George - 12/15/2021 1:11 PM CDT 6 mo f/u for AFIB. Pt stated no complaints. * Kiel Vasquez MD - 12/15/2021 1:00 PM CDT [facility] Heart and Vascular Primary Care Physician: Aliza Bain MD Problem List #. afib #. HTN #. 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 Carotid artery stenosis History Of Present Illness Cassandra Martinez is a delightful 76 y.o. female with the above mentioned medical problems. Since her last visit she has felt great. She had an afib ablation. Since then she has not noticed any recurrence, no palpitations, fatigue, or dizzy spells. She has no cardiac sx or concerns. May go on cruise to [facility] this fall. No CP. No new or significant dyspnea. No light-headedness or syncope. Taking meds. No bleeding or neuro symptoms. Weight similar to recent past. Has 2 children, 3 grand children, 3 great grand children in [facility]. Past Medical History Past Medical History: Diagnosis Date ??? Arthritis ??? Dyspnea on exertion ??? GERD (gastroesophageal reflux disease) ??? HTN (hypertension) ??? Hx of degenerative disc disease ??? Injury of back DDD ??? Malignant neoplasm of lung Family History Family History Problem Relation Name Age of Onset ??? Heart Disease Father ??? Heart Disease Mother ??? Stroke Sister ??? Asthma Sister Social History reports that she quit smoking about 22 years ago. Her smoking use included cigarettes. She has a 20.00 pack-year smoking history. She has never used smokeless tobacco. She reports current alcohol use. She reports that she does not use drugs. Review of Systems See HPI Physical Exam Vitals: 12/15/21 1314 BP: (!) 140/68 Pulse: (!) 58 SpO2: 98% Weight: 66.3 kg (146 lb 3.2 oz) Height: 5' 3 (1.6 m) General: no distress, oriented, looks well CV: normal neck veins, normal auscultated S1/2, no extra heart sounds or gallops, no murmurs Lungs: clear to auscultation bilaterally, no wheezes, rales, rhonchi Ext: no edema, warm, pulses intact Laboratory Data No results found for this visit on 12/15/21 (from the past 24 hour(s)). Lab Results [...] AM ECG #. afib Non-Invasive Testing #. 09/2020 event monitor - afib #. 05/2021 holter - 14 additional autotriggered/asympotmatic transmissions revealing atrial fibrillation #. 06/2021 MPI - no ischemia #. 06/2021 TTE - EF normal, DD, no VHD Cardiac Catheterization #. n/a Impression/Plan Cassandra Martinez is a delightful 76 y.o. female with the below cardiac diagnoses who presents for eval Atrial fibrillation - [id number] = 4. Ablation 2021 -Will continue rate control with diltiazem -On OAC with eliquis Chronic diastolic dysfunction- Euvolemic, well compensated -continue BP control with diltiazem -continue diuresis PRN Hypertension - BP well [...] Cardiology Vascular Medicine and Intervention [address] [facility] ([facility]); [address] [place] [address] Office Office Medications Current Outpatient Medications: ??? diltiaZEM (Tiadylt ER) 120 mg Extended Release capsule, Take 2 Capsules (240 mg) by mouth daily., Disp: 90 Capsule, Rfl: 0 ??? pantoprazole (PROTONIX) 20 mg Tablet, Delayed Release (E.C.), Take 20 mg by mouth 2 times daily., Disp: , Rfl: ??? apixaban (Eliquis) 5 mg tablet, Take 1 Tablet (5 mg) by mouth 2 times daily., Disp: 60 Tablet, Rfl: 6 ??? cyanocobalamin (VITAMIN B-12) 100 mcg tablet, Take 100 mcg by mouth daily., Disp: , Rfl: ??? calcium-cholecalciferol (OS-SUSAN 500+D) 500 mg(1,250mg) -200 unit tablet, Take 1 Tablet by mouthdaily., Disp: , Rfl: ??? glucosamine sulfate 500 mg Capsule, Take 500 mg by mouth., Disp: , Rfl: ??? magnesium oxide 250 mg magnesium Tablet, Take by mouth., Disp: , Rfl: ??? aspirin (ECOTRIN EC) 81 mg Tablet, Delayed Release (E.C.), Take 81 mg by mouth daily., Disp: , Rfl: ??? cholecalciferol, vitamin D3, (VITAMIN D3 ORAL), Take by mouth., Disp: , Rfl: ??? hydroCHLOROthiazide 25 mg tablet, TAKE 1 TABLET BY MOUTH EVERY DAY, Disp: , Rfl: ??? olmesartan (BENICAR) 40 mg tablet, Take 40 mg by mouth daily. Medication bottle is Olmesartan Medoxomil 40 MG tab1 tab by mouth daily, Disp: , Rfl: documented in this encounter Plan of Treatment Upcoming Encounters Date Type Department Care Team (Late st Contact Info) Description 2024 11:00 AM MANAGING MEMBER Appointment [facility] [address] [place] [address] 07/21/2024 9:45 AM MANAGING MEMBER Appointment [facility] Cabin Furnishings Installer [address] [place] [address] Kiel Vasquez MD [address] [facility] [address] [place] [address] 07/21/2024 9:53 AM MANAGING MEMBER Hospital Encounter [facility] [employer] Furnishings Installer [address] [place] [address] Kiel Vasquez MD [address] [facility] [address] [place] [address] Jesse Lackey-fib 07/21/2024 9:53 AM MANAGING MEMBER - 07/21/2024 11:46 AM MANAGING MEMBER Surgery [facility] Cabin Furnishings Installer [address] [place] [address] Kiel Vasquez MD [address] [place] [address] [address] [place] [address] Left atrial appendage closure percutaneous 07/28/2024 8:30 AM MANAGING MEMBER Office Visit [facility] Oncology and Hematology - [place] [address] [facility] [address] [place] [phone] Nahid Hickman MD [address] [facility] [address] [place] [address] 09/09/2024 1:00 PM CDT Office Visit [facility] Heart and Vascular At [address] [place] [address] Kiel Vasquez MD [address] [place] [address] [address] [place] [address] 12/16/2024 11:00 AM CDT Office Visit [facility] HEART AND VASCULAR EP AT [address] [place] [address] Demetrius Bowling DNP [address] [place] [address] 2014 [place] [address] 02/05/2025 10:45 AM CDT Telephone Check Up [facility] Heart and Vascular At [address] [place] [address] 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 FNP [address] [place] [address] documented as of this encounter Visit Diagnoses Diagnosis Paroxysmal atrial fibrillation- Primary Atrial fibrillation Benign hypertension Essential hypertension, benign Carotid artery disease, unspecified laterality, unspecified type Chronic diastolic dysfunction Chronic diastolic heart failure Paroxysmal atrial fibrillation- Primary Atrial fibrillation Paroxysmal A-fib Atrial fibrillation Paroxysmal A-fib Atrial fibrillation documented in this encounter Care Teams Juvenile Officer Relationship Specialty Start Date End Date Aliza Bain MD [address] [place] [phone] PCP - General Family Practice 11/22/21 documented as of this encounter
--- OUTSIDE RECORDS SUMMARY | 2024-07-01 00:43 | XMS_ITS | Encounter Summary ---
Author Organization [facility] Address [address] [place] [address] Care Team Providers Care Health Administrator Name Role Phone Aliza Bain MD Primary Care Provider Reason for Visit * Reason Comments Med Refill Encounter Details Date Type Department Care Team (Late st Contact Info) Description 03/06/2022 Refill [facility] Heart and Vascular At [place] [address] [facility] [address] [place] [address] Kiel Vasquez MD [address] [place] [address] [address] [place] [address] New onset atrial fibrillation Social [...] encounter Miscellaneous Notes * Telephone Encounter - Vidhi Delgado - 03/06/2022 10:20 AM CDT GARY: 12/15/2021 NOV: 06/22/2022 documented in this encounter Plan of Treatment Upcoming Encounters Date Type Department Care Team (Late st Contact Info) Description 2024 11:00 AM ORNAMENTAL IRON ERECTOR Appointment [facility] [place] [address] [place] [place] [address] 07/21/2024 9:45 AM ORNAMENTAL IRON ERECTOR Appointment [facility] Front Counter Clerk [address] [place] [phone] Kiel Vasquez MD [address] [place] [address] 07/21/2024 9:53 AM ORNAMENTAL IRON ERECTOR Hospital Encounter [facility] Front Counter Clerk [address] [place] [address] Kiel Vasquez MD [address] [place] [address] [address] [place] [address] Paroxysmal A-fib 07/21/2024 9:53 AM ORNAMENTAL IRON ERECTOR - 07/21/2024 11:46 AM ORNAMENTAL IRON ERECTOR Surgery [facility] Front Counter Clerk [address] [place] [address] Kiel Vasquez MD [address] [place] [address] [address] [place] [address] Left atrial appendage closure percutaneous 07/28/2024 8:30 AM ORNAMENTAL IRON ERECTOR Office Visit [facility] Oncology and Hematology - [place] [address] [place] [phone] Nahid Hickman MD [address] [facility] [address] [place] [address] 09/09/2024 1:00 PM CDT Office Visit [facility] Heart and Vascular At [address] [place] [address] Kiel Vasquez MD [address] [place] [address] 2014 [place] [address] 12/16/2024 11:00 AM CDT Office Visit [facility] HEART AND VASCULAR EP AT [address] [place] [address] Demetrius Bowling DNP [address] [place] [address] 2014 [place] [address] 02/05/2025 10:45 AM CDT Telephone Check Up [facility] Heart and Vascular At [facility] [address] [facility] [address] [place] [address] 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, SODA ROOM OPERATOR [address] [place] [address] documented as of this encounter Visit Diagnoses Diagnosis New onset atrial fibrillation Atrial fibrillation Paroxysmal atrial fibrillation- Primary Atrial fibrillation Paroxysmal A-fib Atrial fibrillation Paroxysmal A-fib Atrial fibrillation documented in this encounter Care Teams Health Administrator Relationship Specialty Start Date End Date Aliza Bain MD [address] [place] [address] PCP - General Family Practice 11/22/21 documented as of this encounter
--- OUTSIDE RECORDS SUMMARY | 2024-07-01 00:43 | XMS_ITS | Encounter Summary ---
Author Organization [facility] Address [address] [place] [address] Care Team Providers Care Washing Machine Mechanic Name Role Phone Aliza Bain MD Primary Care Provider Encounter Details Date Type Department Care Team (Latest Contact Info) Description 08/12/2021 1:58 PM SUPPORT SERVICES SPECIALIST - 08/12/2021 11:59 PM [facility] Hospital Encounter [facility] Pre Procedure Viral Testing [address] [address] Discharge Disposition: Home or Self Care Social [...] and Family Not on file 07/29/2020 Attends [employer] Not on file 07/29 Do you belong to any clubs o r organizations such as episcopal groups, unions, fraternal or athletic groups, or [...] have Coronavirus / COVID-19? No / Unsure 08/09/2021 11:47 AM SUPPORT SERVICES SPECIALIST documented as of this encounter Medications at Time of Discharge Medication Sig Dispensed Refills Start Date End Date pantoprazole (PROTONIX) 20 mg Tablet, Delayed Release [...] 40 MG tab1 tab by mouth daily diltiaZEM (CARDIZEM CD) 120 mg Controlled Delivery 24 hour capsule Take 2 Capsules (240 mg) by mouth daily for 15 days. 30 Capsule 08/05/2021 08/16/2021 apixaban (Eliquis) 5 mg tabletIndications:New onset atrial fibrillation Take 1 Tablet (5 mg) by mouth 2 times daily. 60 Tablet 6 07/25/2021 03/06/2022 glucosamine sulfate 500 mg Capsule Take 500 mg by mouth. 06/22/2022 hydroCHLOROthiazide 25 mg tablet TAKE 1 TABLET BY MOUTH EVERY DAY 05/07/2020 10/30/2023 documented as of this encounter Plan of Treatment Upcoming Encounters Date Type Department Care Team (Late st Contact Info) Description 2024 11:00 AM SUPPORT SERVICES SPECIALIST Appointment [facility] [address] [place] [address] 07/21/2024 9:45 AM SUPPORT SERVICES SPECIALIST Appointment [facility] Precipitator [address] [place] [address] Kiel Vasquez MD [address] [facility] 2014 [place] [address] 07/21/2024 9:53 AM SUPPORT SERVICES SPECIALIST Hospital Encounter [facility] Precipitator [address] [place] [address] Kiel Vasquez MD [address] [facility] [address] [place] [address] Paroxysmal A-fib 07/21/2024 9:53 AM SUPPORT SERVICES SPECIALIST - 07/21/2024 11:46 AM SUPPORT SERVICES SPECIALIST Surgery [facility] Precipitator [address] [place] [address] Kiel Vasquez MD [address] [facility] [address] [place] [address] Left atrial appendage closure percutaneous 07/28/2024 8:30 AM SUPPORT SERVICES SPECIALIST Office Visit [facility] Oncology and Hematology - [place] [address] [place] [address] Nahid Hickman MD [address] [facility] [address] [place] [phone] 09/09/2024 1:00 PM CDT Office Visit [facility] Heart and Vascular At [place] [address] [facility] [address] [place] [phone] Kiel Vasquez MD [address] [facility] [address] [place] [address] 12/16/2024 11:00 AM CDT Office Visit [facility] HEART AND VASCULAR EP AT [place] [address] [facility] [address] [place] [phone] Demetrius Bowling DNP [address] [facility] 2014 [place] [address] 02/05/2025 10:45 AM CDT Telephone Check Up [facility] Heart and Vascular At [address] [place] [phone] 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, MATERIALS SCIENTIST [address] [place] [address] documented as of this encounter Procedures Procedure Name Priority Date/Time Associated Diagnosis Comments 2019 NOVEL CORONAVIRUS (COVID-19) PCR DETECTION Routine 08/12/2021 1:58 PM SUPPORT SERVICES SPECIALIST Preop testing documented in this encounter Results * 2019 NOVEL CORONAVIRUS (COVID-19) PCR DETECTION (08/12/2021 1:58 PM SUPPORT SERVICES SPECIALIST) COVID-19 PCR NOT DETECTED Not Detected 08/12/19 11:43 PM SUPPORT SERVICES SPECIALIST [facility] SERVICES [facility] PERFORMING LAB [facility] 08/12/2021 11:43 PM SUPPORT SERVICES SPECIALIST [facility] Upper Respiratory ENTIRE NASOPHARYNX / Unknown Collection / Unknown 08/12/2021 1:58 PM SUPPORT SERVICES SPECIALIST 08/12/2021 4:55 PM SUPPORT SERVICES SPECIALIST Narrative [facility] - 08/12/2021 11:43 PM SUPPORT SERVICES SPECIALIST This test has been authorized by the FDA under an Emergency Use Authorization for use by authorized laboratories.?? This test has been validated in accordance with the FDA's guidance regarding Coronavirus Disease-2019 testing.?? Optimum specimen types and timing for peak viral levels during infection have not been determined.?? A negative RT-PCR result does not rule out infection with the 2019-Novel Coronavirus. Melita Woods MD MICROBIOLOGY - [facility] ORDERABLES [facility]# [id number] [address] [facility] [place] [id number] documented in this encounter Visit Diagnoses Diagnosis Preop testing Preoperative examination, unspecified Paroxysmal atrial fibrillation- Primary Atrial fibrillation Paroxysmal A-fib Atrial fibrillation Paroxysmal A-fib Atrial fibrillation documented in this encounter Care Teams Washing Machine Mechanic Relationship Specialty Start Date End Date Aliza Bain MD [address] [place] [address] PCP - General Family Practice 07/29/20 11/21/21 documented as of this encounter
--- OUTSIDE RECORDS SUMMARY | 2024-07-01 00:43 | XMS_ITS | Encounter Summary ---
Author Organization [facility] Address [address] [place] [address] Care Team Providers Care Rehab Assistant Name Role Phone Aliza Bain MD Primary Care Provider Reason for Visit * Reason Comments Shortness of Breath hx of A-fib. has bee n having problems breathing for awhile mostly after jam. she is having CP in the center of her chest, her legs are really shakey and is nauseated. lips were a little numb along with her tongue. * Auth/Cert Specialty Diagnoses / Procedures Referred By Meghana vigil Referred To Contact Emergency Medicine [facility] Emergency Dept [address] [place] [address] Referral ID Status Reason Start Date Expiration Date Visits Re quested Visits Authorized [id number] 1 1 Encounter Details Date Type Department Care Team (Late st Contact Info) Description 06/30/2021 3:33 PM MOLD FILLING OPERATOR - 07/01/2021 5:32 PM MOLD FILLING OPERATOR Emergency [facility] Emergency Clinical Decision Unit [address] [place] [address] John Mathias MD [address] [place] [address] Esthela Roblero MD [address] [place] [address] Exertional shortness of breath (Primary Dx); Atrial fibrillation, unspecified type Discharge Disposition: Home or Self Care Social [...] and Family Not on file 07/29/2020 Attends Hoahaoism Services Not on file 07/29 Do you [...] COVID-19? Unable to assess 07/01/2021 11:19 AM MOLD FILLING OPERATOR documented as of this encounter Last Filed Vital Signs Vital Sign Reading Time Taken Comments Blood Pressure 148/64 07/01/2021 4:00 PM MOLD FILLING OPERATOR Pulse 66 07/01/2021 4:00 PM MOLD FILLING OPERATOR Temperature 36.3 ??C (97.4 ??F) 06/30/2021 3:00 PM CS T Respiratory Rate 18 07/01/2021 4:00 AM MOLD FILLING OPERATOR Oxygen Saturation 96% 07/01/2021 4:00 PM MOLD FILLING OPERATOR Inhaled Oxygen Concentration - - Weight 66.7 kg (147 lb) 06/30/2021 3:00 PM MOLD FILLING OPERATOR Height 160 cm (5' 3 ) 06/30/2021 3:00 PM MOLD FILLING OPERATOR Body Mass Index 26.04 06/30/2021 3:00 PM MOLD FILLING OPERATOR documented in this encounter Discharge Instructions * Discharge Instructions* Laura Roberts FNP - 07/01/2021 5:23 PM MOLD FILLING OPERATOR You were seen and evaluated in the Emergency Room by a Physician. You spent the remainder of your stay in the Clinical Decision Unit observed by a Nurse Practitionerand/or Physician Recorder [employer]. You are being discharged to home. Continue any previously prescribed home medications. Follow up with your Primary Care Physician (PCP) as discussed. Call your PCP for any non urgent concerns. Return to the Emergency Department for any urgent matters. Return to the Emergency Department if symptoms do not improve or if you have worsening of symptoms. FILLING OPERATOR * Attachments The following attachments cannot be sent through Care Everywhere. * Atrial Fibrillation (Marshallese) documented in this encounter Medications at Time of Discharge Medication Sig Dispensed Refills Start Date End Date cyanocobalamin (VITAMIN B-12) 100 mcg tablet Take [...] tab1 tab by mouth daily pantoprazole (PROTONIX) 40 mg Tablet, Delayed Release (E.C.) Take 1 Tablet (40 mg) by mouth daily for 14 days. 14 Tablet 07/01/2021 07/15/2021 diltiaZEM (CARDIZEM CD) 120 mg Controlled Delivery 24 hour capsule Take 2 Capsules (240 mg) by mouth daily. 60 Capsule 07/01/2021 08/05/2021 apixaban (Eliquis) 5 mg tabletIndications:New onset atrial fibrillation Take 1 Tablet (5 mg) by mouth 2 times daily. 60 Tablet 03/31/2021 07/25/2021 glucosamine sulfate 500 mg Capsule Take 500 mg by mouth. 06/22/2022 hydroCHLOROthiazide 25 mg tablet TAKE 1 TABLET BY MOUTH EVERY DAY 05/07/2020 10/30/2023 documented as of this encounter Progress Notes * Katja Husain RN - 07/01/2021 8:46 AM CST Images from the original note were not included. Facility Name(s): [facility] Policy / Procedure: [facility] DCS Lexiscan Test Protocol Approved by: [facility] - Medical Executive Committee Date: 03/02/2021 ORDERS ARE ENTERED ???PER PROTOCOL?? Enter the protocol in the patient's electronic health record using smartphrase: .lexiscanprotocol Nursing Communication Orders: Prior to testing and During test: o If not already initiated, insert 24-18 gauge peripheral IV to Saline lock with an extension set. o Prep patient's chest using skin prep and place electrodes on patient. Patients with excessive chest hair may require shaving. o Continuous cardiac monitoring with BP and 12-Lead EKG every minute during the test. Recovery Period o Continuous EKG monitoring, BP and 12-Lead EKG every two (2) minutes post Lexiscan. Following this, observe without EKG monitoring until any symptoms resolve. o If during recovery the patient experiences severe headache, nausea/vomiting, severe abdominal pain, notify the physician to obtain an order for Aminophylline. Once administered, observe patient until complaint of symptoms resolve. Medication Orders: o Sodium chloride 0.9% (normal saline) flush 5 mLs PRN for saline lock or medication administration. o Lexiscan Test - Administer the following in the order listed: 1. Lexiscan (regadenosine) 0.4 mg IV over approximately ten (10) seconds, one time. 2. Flush with 5 mLs of Sodium Chloride 0.9% immediately after the injection of Lexiscan 3. Logging Specialist to administer the radionuclide myocardial perfusion imaging agent 10-20 seconds after the saline flush. o Aminophylline 100mg IV PRN one time only, for side effects of Lexiscan administration: nausea, vomiting, chest pain, shortness of breath, blood pressure with systolic <90, headache, blurred vision, abdominal cramping, tachycardia, dizziness, or numbness to extremities. FILLING OPERATOR documented in this encounter H&P Notes * Vignesh Martin MD - 07/01/2021 5:12 PM CST EP consult Name: Zee Martinez Date of : 1945 CSN: [id number] Admit date: 06/30/2021 3:33 PM Consult requested by: No att. providers found Reason for consult: afib History of Present Illness: 75 y.o. female with past medical history notable for hypertension, non-small cell lung cancer, carotid artery stenosis, and persistent atrial fibrillation. She was diagnosed with atrial fibrillation when she underwent lung resection in August 2020. Pt on Eliquis and then diltiazem for rate control. Scheduled for ablation in July with Dr. Woods. States that yesterday, started to feel poorly and that her legs may give out. Denies palpitations but states she never feels her atrial fibrillation aside from sig fatigue and sob. In ED noted to be in afib. Normotensive, underwent echo and stress today. Past Medical History: Diagnosis Date ??? Arthritis [...] THORACOTOMY performed by Edinson Ferrell MD at [facility] OR ??? HX TONSILLECTOMY ??? HX TRIGGER FINGER REPAIR ??? [place] RMVL LUNG OTHER THAN PNEUMONECTOMY 1 LOBE LOBECT Right 08/31/2020 LUNG LOBECTOMY performed by Edinson Ferrell MD at [facility] OR Family History Problem Relation Name Age of Onset ??? Heart Disease Father ??? Heart Disease Mother ??? Stroke Sister ??? Asthma Sister Social History Socioeconomic History ??? Marital status: Spouse name: Not on file ??? Number of children: Not on file ??? Years of education: Not on file ??? Highest education level: Not on file Occupational History ??? Not on file Tobacco Use ??? Smoking status: Former Smoker Packs/day: 0.50 Years: 40.00 Pack years: 20.00 Types: Cigarettes Quit date: 08/19/1999 Years since quittin.8 ??? Smokeless tobacco: Never Used Vaping Use ??? Vaping Use: Never used Substance and Sexual Activity ??? Alcohol use: Yes Comment: occasional ??? Drug use: Never ??? Sexual activity: Not on file Other Topics Concern ??? Not on file Social History Narrative ??? Not on file Social Determinants of Health Financial Resource Strain: Low Risk ??? Difficulty of Paying Living Expenses: Not hard at all Food Insecurity: Not on file Transportation Needs: No Transportation Needs ??? Lack of Transportation (Medical): No ??? Lack of Transportation (Non-Medical): No Physical Activity: Inactive ??? Days of Exercise per Week: 0 days ??? Minutes of Exercise per Session: 0 min Stress: Stress Concern Present ??? Feeling of Stress : To some extent Social Connections: Unknown ??? Frequency of Communication with Friends and Family: Not on file ??? Frequency of Social Gatherings with Friends and Family: Not on file ??? Attends Hoahaoism Services: Not on file ??? Active Member of Clubs or Organizations: Yes ??? Attends Club or Organization Meetings: Never ??? Marital Status: Not on file Intimate Partner Violence: Not At Risk ??? Fear of Current or Ex-Partner: No ??? Emotionally Abused: No ??? Physically Abused: No ??? Sexually Abused: No No outpatient medications have been marked as taking for the 06/30/21 encounter (Hospital Encounter). Allergies Allergen Reactions ??? Penicillins Hives Review of Systems: CV: Denies chest pain, syncope Lungs: Denies sob, cough, hemoptysis GI: Denies abdominal pain, melena : Denies hematuria All other 12 point systems were reviewed and found to be negative. Physical Examination: BP (!) 148/64 (BP Location: Left arm, Patient Position (BP): Sitting) Pulse 66 Temp 97.4 ??F (36.3 ??C) (Oral) Resp 18 Ht 5' 3 (1.6 m) Wt 66.7 kg (147 lb) SpO2 96% BMI 26.04 kg/m?? HEENT: Atraumatic, normocephalic, pupils equal BL Neck: No jugular venous distention, no audible carotid bruits, no palpable thyroid masses Lungs: Clear to auscultation bilaterally CV: Regular rate and rhythm, soft I/ HSM at LLSB, no palpable heave or thrill, no rub Abd; soft, non-tender, non-distended, bowel sounds present, no gross organomegaly Ext: No cyanosis or clubbing; no sig edema Neuro: No gross focal motor defecits Gen: Alert and oriented x 3, no acute distress ECG: AF Most recent ejection fraction:: EJECTION FRACTION Date Value Ref Range Status 07/01/2021 65 Final Impression: 1. Paroxysmal afib 2. HTN 3. Hx of lung CA s/p resection Recommendations: Asked to see pt for symptomatic afib - she had sig LE weakness and fatigue on presentation. Although afib on EKG was rate controlled. Nuc stress with no ischemia, normal EF. Now back in sinus and feels much better. Discussed options in detail with her which include increasing rate control, AAD - may require hospital loading but she has mild renal dysfunction so limited options. She is already scheduled for ablation with Dr. Woods in July. Recommend increasing her diltiazemto 240mg daily for additional rate control and then changing her PPI to Protonix given ongoing GERDsx's. OK for d/c from EP standpoint. Vignesh Martin MD 07/01/2021 5:14 PM FILLING OPERATOR documented in this encounter Procedure Notes * Lily Siddiqi, LAZARO - 07/01/2021 2:46 PM CST Images from the original note were not included. [facility] DCS Definity Protocol [facility] Approved by: [facility] - Medical Executive Committee Approval Date: 02/03/2021 ORDERS ARE ENTERED ???PER PROTOCOL?? Enter the protocol in the patient's electronic health record using smartphrase: .definityprotocol Diagnostic Test Orders: 1. Verify patient does not meet any of these exclusion criteria ??? Allergy or hypersensitivity to Definity or octafluoropropane ??? Is or nursing 2. If patient states yes to any exclusion criteria, STOP THE PROCEDURE and annotate exam accordingly 3. Patient meets at least one of these inclusion criteria ??? Credentialed provider request ??? Patient is technically difficult to image ([place] Society of Echocardiography guidelines of 2or more segments within the apical/parasternal short axis views are not discernable) ??? The question of left ventricular function has been raised and/or suspicion for estimated ejection fraction being less than 35 percent regardless of image quality ??? Furthermore, Definity use is strongly recommended by the ASE, when visualization of the endocardium is critical, particularly for use with stress echocardiography 4. Educate patient or responsible alliance party on Definity indications and side effects. 5. Have emergency equipment available 6. Definity may be ordered by a credentialed provider, RN or superintendent automotive 7. Enter Definity medication order per protocol and document using smartphrase .definityprotocol 8. Change procedure order to include contrast 9. Verify peripheral or central line IV access. If IV access is not available, then a trained superintendent automotive needle loom operator helper may place peripheral IV access as appropriate for medication administration and follow Adult Flush Protocol. NOTE: Do NOT access dialysis catheter or arterial line catheter. 10. Activate Definity using the VialMix machine: o Vial of Definity should be vented prior to withdrawing medication o Dilute the Definity in a syringe with 8.7 ml Normal Saline to make 10 ml o Administer Definity in small increments as needed to enhance visualization up to a total of 10 mlof the diluted Definity o Definity vials may require resuspension and/or reactivation (see image below for further information) 11. RN or trained superintendent automotive may discontinue peripheral IV access when IV no longer required for treatment Medication Orders: ? Perflutren Lipid microspheres (DEFINITY) 1.1 mg/mL injection, 2mL given IV intra-procedure, one time use only. DEFINITY?? Activation/Reactivation1,6 ??? If activated vial is not used within 5 minutes, resuspend with 10 seconds of hand agitation prior to use. DEFINITY?? may be used for up to 12 hours after activation with VIALMIX??1 ??? If not used within 12 hours, vial may be returned to refrigeration and reactivated once with VIALMIX?? within 24 hours6 ??? Reactivated DEFINITY?? may be used for up to 12 hours1,6 FILLING OPERATOR documented in this encounter ED Notes * Nieves Munoz RN - 07/01/2021 5:30 PM CST Discharge reviewed with patient. Meal tray delivered. Awaiting medication from pharmacy. FILLING OPERATOR * Laura Roberts, LANGUAGE THERAPIST - 07/01/2021 5:21 PM CST HISTORY OF PRESENT ILLNESS Zee Martinez, a 75 y.o. 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 Patient has noticed intermittent afib symptoms over the past year. She will have sob, nausea and lightheadedness. Episodes last 1-2 days ago will resolve. She noticed on 06/11 she went into afib and was symptomatic. She saw Dr. Vasquez cardiology. Event monitor identified afib. She was directed to Dr. Woods and scheduled for an ablation on 08/10, started on diltiazem. She has noticed shortness ofbreath persisting. She noticed yesterday am sob was signifiicatly worse. She was lightheaded and diaphoretic while getting out of the car. She came to ED for further evaluation. She denies chest pains, headache. Patient denies any recent travel, LE swelling, calf tenderness, or participation in strenuous activity. ?? The patient was evaluated in the ED by Dr. Mathias. Workup included a CBC- RBC 3.58, H&H 10.1/31.3, CMP- BUN 26, Cr 1.29, proBNP 1132, Troponin (Baseline- 16 ), and CXR, with results listed below. ?? The patient was admitted to the CDU for further observation, monitoring, and testing. The plan of care was discussed with the patient, including continous cardiopulmonary monitoring and need for nuclear medicine stress test in the morning, and the patient is agreeable. Will wait for result before discharge. Also needs to see EP Cylinder Die Machine Operator if stress is negative. ?? EKG: Atrial fibrillation Nonspecific ST-T abnormalities ?? CXR: No convincing evidence of active disease. ? Heart Score: 4 During admission in the CDU the patient had no acute events. VSS. Did continue to complain of SOB. Repeat EKG w/o e/o new ST variation or ischemic changes.Troponin trended and remained flat. A nuclear medicine stress test was performed that was negative for ischemia; overall normal (full report below). Patient was due to have an echo complete in the following weeks and requested to have while here. This was completed and resulted below. Case was discussed with EP, they recommend changing Cardizem to 240 mg daily and adding Protonix 40 mg daily to follow up with them as needed. This was discussed with her and she verbalizes understanding. She voices no additional questions. She is being disch arged home with strict RTER instructions. ?? CASE DISCUSSED Dr. Roberto Medications Administered During the ED Stay from 06/30/2021 1807 to 07/01/2021 1101 Date/Time Order Dose Route Action 06/30/20212255 olmesartan (BENICAR) tablet 40 mg 40 mg Oral Given 06/30/20212255 apixaban (ELIQUIS) tablet 5 mg 5 mg Oral Given 07/01/2021 0739 sodium chloride flush injection 10 mL 10 mL IV Given 07/01/2021 0910 regadenoson (LEXISCAN) 0.4 mg/5 mL injection 0.4 mg IV Given 07/01/2021 0915 aminophylline 250 mg/10 mL injection 100 mg 100 mg IV Given . New Prescriptions for this Encounter LAST VS BP: (!) 130/103 (07/01/21 1030), Heart Rate: 72 bpm (07/01/21 1030), Resp: 18 (07/01/21 0400), Temp: 97.4 ??F (36.3 ??C) (06/30/21 1500), Temp src: Oral (06/30/21 1500), SpO2: (!) 88 % (07/01/21 1030) Physical Exam: General appearance: alert, in no distress Back: symmetric, no curvature. ROM normal. No CVA tenderness. Lungs: clear to auscultation bilaterally, normal respiratory effort Heart: normal rate and regular rhythm Abdomen: Soft, hypoactive bowel sounds. Epigastric tenderness Extremities: extremities normal, atraumatic, no cyanosis or edema, intact distal pulses, moves all extremities equally, no edema, redness or tenderness in the calves or thighs, normal strength, normal tone Pulses: 2+ and symmetric Neurologic: Grossly normal Musculoskeletal: no joint tenderness, deformity or swelling CBC WITH DIFFERENTIAL - Abnormal Result Value WBC 6.6 RBC 3.58 (*) HEMOGLOBIN 10.1 (*) HEMATOCRIT 31.3 (*) MCV 87.4 MCH 28.2 MCHC 32.3 RDW 12.8 RDW-STDEV 40.9 PLATELETS 245 MPV 11.2 COMPREHENSIVE METABOLIC PANEL - Abnormal SODIUM 137 POTASSIUM 4.1 CHLORIDE 98 CO2 23 CALCIUM 10.2 BUN 26 (*) CREATININE 1.28 (*) GLUCOSE 108 (*) TOTAL PROTEIN 7.9 ALBUMIN 4.2 BILIRUBIN TOTAL 0.4 ALKALINE PHOSPHATASE 94 AST 24 ALT 9 GFR 41 GFR, 49 ANION GAP 16 TROPONIN BASELINE, 5TH GEN - Abnormal TROPONIN T, BASELINE 5TH GEN 16 (*) BRAIN NATRIURETIC PEPTIDE, BNP OR PROBNP - Abnormal PROBNP, N TERMINAL 1,132 (*) MANUAL DIFFERENTIAL - Abnormal SEGMENTED NEUTROPHILS 55 LYMPHOCYTES RELATIVE 16 (*) ATYPICAL LYMPHOCYTES RELATIVE 10 (*) MONOCYTES RELATIVE 17 METAMYELOCYTES RELATIVE 1 (*) MYELOCYTES - REL (DIFF) 2 (*) NEUTROPHILS ABSOLUTE COUNT 3.61 LYMPHOCYTES ABSOLUTE 1.04 MONOCYTES ABSOLUTE 1.10 TOTAL CELLS COUNTED IN DIFF 108 RBC MORPHOLOGY Normal PLATELET EST. Consistent w Count POC US LIMITED CARDIAC Radiologist Impression XR CHEST PA OR AP 1 VW Radiologist Impression IMPRESSION: No convincing evidence of active disease. DICTATION LOCATION: Location 1 - [facility] stress test: IMPRESSION: 1) The EKG stress test is non-ischemic. 2) The overall quality of the study is good. 3) The myocardial perfusion scan is normal. 4) Left ventricular size is normal with normal left ventricular systolic function, and a calculated ejection fraction of 64%. 5) No previous study was available for comparison. Echo complete STUDY CONCLUSIONS: SUMMARY: -- - Left ventricle: The cavity size was normal. Wall thickness was increased. Global systolic function was normal. The estimated ejection fraction was 65%. Diastolic function assessment consistent with abnormal left ventricular relaxation (grade 1 diastolic dysfunction). - Aortic valve: Structurally normal valve. Trileaflet. - Mitral valve: Structurally normal valve. No significant regurgitation. - Left atrium: The atrium was normal in size. - Right ventricle: The cavity size was normal. Systolic function was normal. - Pulmonary arteries: The peak pressure during systole by Doppler is 25mm Hg. -- CLINICAL IMPRESSION Final diagnoses: [R06.02] Exertional shortness of breath (Primary) [I48.91] Atrial fibrillation, unspecified type - Home to follow up with EP and PCP DISPOSITION, EDUCATION AND MEDICATION RECONCILIATION Medications reconciled. See after visit summary for patient education on discharged patients. FILLING OPERATOR Associated attestation - Red Roberto MD - 07/02/2021 9:10 AM MOLD FILLING OPERATOR Zee Martinez was seen and examined independent of advanced practice provider. Agree with history, physical, assessment, and plan of care. Patient presented with SOB, palpitations. HRRR s MRG, LCTAB, NAD on exam. Nuc Med stress test neg for ischemia. Echo complete s significant abnormality. EP consulted and recommended Cardizem 240mg q24 and adding Protonix. F/U and return precautions discussed. Stable for discharge. Comfortable with the plan. Red Roberto MD * Nieves Munoz RN - 07/01/2021 3:56 PM CST Pt resting on bed. NAD. Equal rise and fall of the chest. Call light within reach. Updated on POC. HAR * Sondra Rachel RN - 07/01/2021 1:59 PM CST Pt still in echo FILLING OPERATOR * Nieves Munoz RN - 07/01/2021 1:26 PM CST Pt to stress test. FILLING OPERATOR * Sondra Rachel RN - 07/01/2021 11:09 AM CST Pt resting on stretcher, vss, call light and belongings in reach. Pt updated on plan of care and wait times and denies further concerns. HAR * Sondra Rachel RN - 07/01/2021 10:56 AM CST Pt back from echo, placed back on playground monitor, vss, call light in reach, awaiting provider for results. HAR * Sondra Rachel RN - 07/01/2021 9:39 AM CST Pt still in nuc med FILLING OPERATOR * Sondra Rachel RN - 07/01/2021 8:00 AM CST Pt to nuc med HAR * Sondra Rachel RN - 07/01/2021 7:26 AM CST Assumed care of pt at this time, vss, call light in reach, transport at bedside taking pt to stresstest/echo, a&ox4, pink, warm and dry. HAR * Gary Walter RN - 07/01/2021 5:49 AM CST Patient appears asleep on bed in no distress. Remains on monitor. Breathing even and unlabored. Will continue to monitor. FILLING OPERATOR * Gary Walter RN - 07/01/2021 3:47 AM CST EKG obtained after returning from restroom. Will continue to monitor. FILLING OPERATOR * Gary Walter RN - 07/01/2021 3:27 AM CST Patient ambulated to and from restroom without difficulty. Placed back on monitor. A & O x 4 inno distress. Breathing even and unlabored. Denies needs. Instructed to call if needing anything. Will continue to monitor. HAR * Gary Walter RN - 07/01/2021 1:10 AM CST Patient appears asleep on bed in no distress. Remains on monitor. Breathing even and unlabored. Will continue to monitor. Gary Mills RN - 06/30/2021 11:05 PM CST Medications given as ordered. Patient/family has been informed about benefits and any potential clinically significant side effects or other concerns regarding the administration of the drug they have just been given. Labs obtained, labeled and sent to lab. Patient resting on bed with no further com plaints at this time. Remains on monitor. A & O x 4 in no distress. Breathing even and unlabored. Denies needs. Instructed to call if needing anything. Will continue to monitor. FILLING OPERATOR * Gary Walter RN - 06/30/2021 8:12 PM CST Labs obtained, labeled and sent to lab. Patient resting on bed with no further complaints at this time. Remains on monitor. A & O x 4 in no distress. Breathing even and unlabored. Denies needs. Instructed to call if needing anything. Will continue to monitor. FILLING OPERATOR * Gary Walter RN - 06/30/2021 7:56 PM CST Received report from TUNDE Yanes. Patient resting on bed with no complaints at this time. Remains on monitor. A & O x 4 in no distress. Breathing even and unlabored. Denies needs. Instructed to call if needing anything. Will monitor. FILLING OPERATOR * Kitty Holman FNP - 06/30/2021 6:14 PM CST HISTORY OF PRESENT ILLNESS Zee Martinez is a 75 y.o. 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 Patient has noticed has noticed intermittent afib symptoms over the past year. She will have sob,nausea and lightheadedness. Episodes last 1-2 days ago will resolve. She noticed on 06/11 she went into afib and was symptomatic. She saw Dr. Vasquez cardiology. Event monitor identified afib. She was directed to Dr. Woods and scheduled for an ablation on 08/10, started on diltiazem. She has noticed shortness of breath persisting. She noticed this am sob was signifiicatly worse. She was lightheaded and diaphoretic while getting out of the car today. She came to ED for further evaluation. She denies chest pains, headache. Patient denies any recent travel, LE swelling, calf tenderness, or participation in strenuous activity. The patient was evaluated in the ED by Dr. Mathias. Workup included a CBC- RBC 3.58, H&H 10.1/31.3, CMP- BUN 26, Cr 1.29, proBNP 1132, Troponin (Baseline- 16 ), and CXR, with results listed below. The patient was admitted to the CDU for further observation, monitoring, and testing. The plan of care was discussed with the patient, including continous cardiopulmonary monitoring and need for nuclear medicine stress test in the morning, and the patient is agreeable. Will wait for result before discharge. Also needs to see EP Cylinder Die Machine Operator if stress is negative. Denies any questions or concerns at this time. EKG: Atrial fibrillation Nonspecific ST-T abnormalities CXR: No convincing evidence of active disease. Heart Score: 4 REVIEW OF SYSTEMS Review of Systems Constitutional: Negative for chills, fatigue, fever and unexpected weight change. HENT: Negative for congestion. Respiratory: Positive for shortness of breath. Negative for cough. Cardiovascular: Negative for chest pain, palpitations and leg swelling. Gastrointestinal: Negative for abdominal pain, nausea and vomiting. Genitourinary: Negative for difficulty urinating, dysuria, frequency and urgency. Skin: Negative for pallor, rash and wound. Neurological: Negative for dizziness, weakness and headaches. PAST MEDICAL HISTORY REVIEWED MEDICAL: Patient has a past medical history of Arthritis, Dyspnea on exertion, GERD (gastroesophageal refluxdisease), HTN (hypertension), degenerative disc disease, Injury of back, and Malignant neoplasm of lung.She has no past medical history of Chest pain, Difficult intravenous access, Difficult intubation, Dyspnea, Eye injury, History of complications due to general anesthesia, Injury of neck, Latex sensitivity, Malignant hyperthermia, Motion sickness, Obstructive sleep apnea, Post-operative nausea and vomiting, Pseudocholinesterase deficiency, Temporomandibular joint disorder, or Thromboembolism. SURGICAL: Patient has a past surgical history that includes tonsillectomy; trigger finger repair; hysterectomy; ankle surgery; colonoscopy w/ polypectomy; pr rmvl lung other than pneumonectomy 1 lobe lobect (Right, 08/31/2020); and thoracotomy (Right, 08/31/2020). FAMILY: Patient's family history includes Asthma in her sister; Heart Disease in her father and mother; Stroke in her sister. SOCIAL: reports that she quit smoking about 21 years ago. Her smoking use included cigarettes. She has a 20.00 pack-year smoking history. She has never used smokeless tobacco. She reports current alcohol use. She reports that she does not use drugs. No history on file. Social History Other Topics Concern ??? Not on file PROBLEM LIST: Patient has Non-small cell cancer of right lung; New onset atrial fibrillation; Benign hypertension; Carotid artery disease; and MGUS (monoclonal gammopathy of unknown significance) on their problem list. Objective PHYSICAL EXAM Last Vitals: BP 132/56 (BP Location: Left arm, Patient Position (BP): Sitting) Pulse 80 Temp 97.4 ??F (36.3 ??C) (Oral) Resp 22 Ht 5' 3 (1.6 m) Wt 66.7 kg (147 lb) SpO2 100% BMI 26.04 kg/m?? Physical Exam CBC WITH DIFFERENTIAL - Abnormal Result Value WBC 6.6 RBC 3.58 (*) HEMOGLOBIN 10.1 (*) HEMATOCRIT 31.3 (*) MCV 87.4 MCH 28.2 MCHC 32.3 RDW 12.8 RDW-STDEV 40.9 PLATELETS 245 MPV 11.2 COMPREHENSIVE METABOLIC PANEL - Abnormal SODIUM 137 POTASSIUM 4.1 CHLORIDE 98 CO2 23 CALCIUM 10.2 BUN 26 (*) CREATININE 1.28 (*) GLUCOSE 108 (*) TOTAL PROTEIN 7.9 ALBUMIN 4.2 BILIRUBIN TOTAL 0.4 ALKALINE PHOSPHATASE 94 AST 24 ALT 9 GFR 41 GFR, 49 ANION GAP 16 TROPONIN BASELINE, 5TH GEN - Abnormal TROPONIN T, BASELINE 5TH GEN 16 (*) BRAIN NATRIURETIC PEPTIDE, BNP OR PROBNP - Abnormal PROBNP, N TERMINAL 1,132 (*) MANUAL DIFFERENTIAL - Abnormal SEGMENTED NEUTROPHILS 55 LYMPHOCYTES RELATIVE 16 (*) ATYPICAL LYMPHOCYTES RELATIVE 10 (*) MONOCYTES RELATIVE 17 METAMYELOCYTES RELATIVE 1 (*) MYELOCYTES - REL (DIFF) 2 (*) NEUTROPHILS ABSOLUTE COUNT 3.61 LYMPHOCYTES ABSOLUTE 1.04 MONOCYTES ABSOLUTE 1.10 TOTAL CELLS COUNTED IN DIFF 108 RBC MORPHOLOGY Normal PLATELET EST. Consistent w Count TROPONIN 2 HR, 5TH GEN POC US LIMITED CARDIAC Radiologist Impression XR CHEST PA OR AP 1 VW Radiologist Impression IMPRESSION: No convincing evidence of active disease. DICTATION LOCATION: Location 1 - [facility] Procedures ASSESSMENT AND PLAN FILLING OPERATOR * Nixon Tiwari RN - 06/30/2021 5:49 PM CST Report given to Joaquín GRIFFITHS we will bring patient to CDU 10 shortly FILLING OPERATOR * Katherin Mcdonald RN - 06/30/2021 4:06 PM CST 75 y/o F arrived with c/o shortness of breath since around jam . PT also report a sharp pain in the center of her chest. PT report she woke up today with a feeling in indigestion Pt report she had her great granddaughter so she just laid around. PT went out and when she got home she was unable to get out of the car. Pt states My legs would no work and I felt like I was going to pass out Breathing is even and unlabored. PT placed on the playground monitor in a A- fib with a rate in the 60's. Iv and blood work obtained at this time. Call light in reach and friend at the bedside. FILLING OPERATOR * John Mathias MD - 06/30/2021 2:48 PM CSTAssociated Order(s): POC US LIMITED CARDIAC Images from the original note were not included. Emergency Department Attending Physician Note Physician Summary 75 y.o. female who presented with exertional SOB, worsening over the last two weeks, hx/o afib, on cardizem and eliquis, scheduled for ablation next month. EKG nonspecific, HS trop 16, will admit fornuclear stress test. If negative, consider EP consult. History of Present Illness Primary Care Doctor: Aliza Bain MD Documented Triage Chief Complaint: Shortness of Breath Physician arrived in the room at: 4:18 PM Zee Martinez is a pleasant 75 y.o. 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 Pt states she has been having intermittent Afib for the past year, usually presenting with exertional SOB, nausea, and lightheadedness. Episodes usually occur for 1-2 days, and resolve on their own. 06/11 patient went into Afib again with same exertional SOB, nausea, and lightheadedness, however symptoms have continued to persist and worsen instead of resolving as usual. 06/[address] Vasquez (Cardiology), previous event monitor demonstrated a lot of symptomatic afib. She was referred to EP with Dr. Woods and is scheduled for afib ablation on 08/10. Started on diltiazem 120 mg daily. SOB has continued to persist, and patient states she is barely able to walk in her house. One episode of numbness in legs while trying to go to the eye doctor as well. Some decreased PO due to nausea. Also reports two episodes of sharp chest pain in the past two weeks, however pain quickly resolved. This morning patient woke up and states SOB was significantly worse. She did take Diltiazem this morning, but no improvement in symptoms so came here for evaluation. Timing (Onset, frequency/progression): gradual Location: n/a Severity: moderate Duration: 1 year Frequency/Progression: intermittent, worsening Quality: n\a Radiation: n/a Modifiers: SOB worse with exertion Associated symptoms: nausea, lightheadedness, chest pain, numbness Mode of Arrival: private vehicle Patient information was obtained from: the patient and medical records History/Exam limitations: none Relevant Medical History Past Medical History: Past Medical History: Diagnosis Date ??? Arthritis ??? Dyspnea on exertion ??? GERD (gastroesophageal reflux disease) ??? HTN (hypertension) ??? Hx of degenerative disc disease ??? Injury of back DDD ??? Malignant neoplasm of lung Past Surgical History: Past Surgical History: Procedure Laterality Date ??? HX ANKLE SURGERY ??? HX COLONOSCOPY W/ POLYPECTOMY ??? HX HYSTERECTOMY ??? HX THORACOTOMY Right 08/31/2020 THORACOTOMY performed by Edinson Ferrell MD at [facility] OR ??? HX TONSILLECTOMY ??? HX TRIGGER FINGER REPAIR ??? NH RMVL LUNG OTHER THAN PNEUMONECTOMY 1 LOBE LOBECT Right 08/31/2020 LUNG LOBECTOMY performed by Edinson Ferrell MD at [facility] OR Home Medications: Patient's Home Medications Current Home Medications APIXABAN (ELIQUIS) 5 MG TABLET ASPIRIN (ECOTRIN EC) 81 MG TABLET, DELAYED RELEASE (E.C.) CALCIUM-CHOLECALCIFEROL (OS-SUSAN 500+D) 500 MG(1,250MG) -200 UNIT TABLET CHOLECALCIFEROL, VITAMIN D3, (VITAMIN D3 ORAL) CYANOCOBALAMIN (VITAMIN B-12) 100 MCG TABLET DILTIAZEM (CARDIZEM CD) 120 MG CONTROLLED DELIVERY 24 HOUR CAPSULE GLUCOSAMINE SULFATE 500 MG CAPSULE HYDROCHLOROTHIAZIDE 25 MG TABLET HYDROCODONE-ACETAMINOPHEN (NORCO) 5-325 MG TABLET MAGNESIUM OXIDE 250 MG MAGNESIUM TABLET OLMESARTAN (BENICAR) 40 MG TABLET OMEPRAZOLE (PRILOSEC) 40 MG CAPSULE, DELAYED RELEASE(E.C.) Medications Modified during this Encounter Medications Discontinued during this Encounter Allergies: Penicillins Social History: reports that she quit smoking about 21 years ago. Her smoking use included cigarettes. She has a 20.00 pack-year smoking history. She has never used smokeless tobacco. She reports current alcohol use. She reports that she does not use drugs. Family History: family history includes Asthma in her sister; Heart Disease in her father and mother; Stroke in hersister. Review of Systems ?? A comprehensive review of systems was completed. All other systems negative except as marked. ?? See HPI for additional ROS Constitutional: No Fever Eyes: No vision change, no photophobia ENT: No rhinorrhea, No sore throat Respiratory: No cough, + SOB Cardiac: + intermittent chest pain, No palpitations GI: No abdominal pain, + nausea, no vomiting, no diarrhea : No dysuria or genital discharge, no hematuria Musculoskeletal: No joint pain, no muscle aches Skin: No rash Heme: No spontaneous bleeding, no bruising Neuro: + lightheadedness, No weakness, + single episode of numbness in legs, no difficulty walking Psych: No hallucinations, no acute change in mood Physical Exam BP: 132/56 (06/30/21 1500), Pulse: 80 (06/30/21 1500), Resp: 22 (06/30/21 1500), Temp: 97.4 ??F (36.3 ??C) (06/30/21 1500), Temp src: Oral (06/30/21 1500) General: No acute distress, cooperative Eyes: HEENT: No sclera injection, no conjunctiva discharge Nose without drainage, mucous membranes moist, tympanic membranes intact Neck: No tenderness Back: No tenderness Heart: Irregular rate and rhythm without murmur Lungs: Clear to ausculation bilaterally Abdomen: Soft, nontender, no pain with deep palpation, no large masses palpated Rectal/Genital: Not performed Extremities: No significant edema, no calf tenderness, distal pulses intact Pulses: 2+ radial = bilat Skin: No rash, no petechiae, no purpura Lymphatic: No lymphadenopathy noted Neuro: No facial droop, good and equal strength and sensation in all extremities. CN and DTRs intact Psych: Alert and oriented x 3 with good recall for recent/remote. Studies and Interpretation Pulse Oximetry Interpretation: Saturation: 100% Oxygen Delivery: Room Air Interpretation: No hypoxia at this time Rhythm Strip Interpretation (independent interpretation by Ousmane Mathias MD): Normal Sinus Rhythm, no arrhythmia Ventricular Rate: 80 Initial Electrocardiogram (independent interpretation by Ousmane Mathias MD): Atrial fibrillation, ventricular rate (bpm) 55 [place]: normal. NH and QRS intervals: normal ST segments: Non specific ST elevation changed noted Attempted to obtain old ECG and noted: no priors reviewed Clinical Condition: no acute TX Imaging (all imaging was independently reviewed by myself): XR CHEST PA OR AP 1 VW Radiologist Impression IMPRESSION: No convincing evidence of active disease. DICTATION LOCATION: Location 1 - [facility] Labs: (Reviewed by myself), Significant for: Results for orders placed or performed during the hospital encounter of 06/30/21 (from the past 24 hour(s)) CBC WITH DIFFERENTIAL Result Value Ref Range WBC 6.6 4.0 - 9.8 K/uL RBC 3.58 (L) 3.90 - 4.90 M/uL HEMOGLOBIN 10.1 (L) 11.8 - 14.8 g/dL HEMATOCRIT 31.3 (L) 35.5 - 44.0 % MCV 87.4 82.0 - 99.0 fL MCH 28.2 27.2 - 32.6 pg MCHC 32.3 31.5 - 35.5 g/dL RDW 12.8 11.5 - 14.5 % RDW-STDEV 40.9 37.1 - 48.7 fL PLATELETS 245 140 - 350 K/uL MPV 11.2 9.3 - 12.4 fL COMPREHENSIVE METABOLIC PANEL Result Value Ref Range SODIUM 137 136 - 145 mmol/L POTASSIUM 4.1 3.5 - 5.0 mmol/L CHLORIDE 98 98 - 107 mmol/L CO2 23 22 - 29 mmol/L CALCIUM 10.2 8.6 - 10.2 mg/dL BUN 26 (H) 8 - 23 mg/dL CREATININE 1.28 (H) 0.51 - 0.95 mg/dL GLUCOSE 108 (H) 74 - 99 mg/dL TOTAL PROTEIN 7.9 6.7 - 8.6 g/dL ALBUMIN 4.2 3.5 - 5.2 g/dL BILIRUBIN TOTAL 0.4 0.2 - 1.1 mg/dL ALKALINE PHOSPHATASE 94 35 - 104 U/L AST 24 <33 U/L ALT 9 <34 U/L GFR 41 mL/min/1.73 sq meter GFR, 49 mL/min/1.73 sq meter ANION GAP 16 8 - 16 mmol/L TROPONIN BASELINE, 5TH GEN Result Value Ref Range TROPONIN T, BASELINE 5TH GEN 16 (H) <=10 ng/L BRAIN NATRIURETIC PEPTIDE, BNP OR PROBNP Result Value Ref Range PROBNP, N TERMINAL 1,132 (H) <449 pg/mL MANUAL DIFFERENTIAL Result Value Ref Range SEGMENTED NEUTROPHILS 55 % LYMPHOCYTES RELATIVE 16 (L) 43 - 53 % ATYPICAL LYMPHOCYTES RELATIVE 10 (H) 0 - 5 % MONOCYTES RELATIVE 17 % METAMYELOCYTES RELATIVE 1 (H) <=0 % MYELOCYTES - REL (DIFF) 2 (H) <=0 % NEUTROPHILS ABSOLUTE COUNT 3.61 1.90 - 7.00 K/uL LYMPHOCYTES ABSOLUTE 1.04 0.70 - 4.50 K/uL MONOCYTES ABSOLUTE 1.10 0.10 - 1.30 K/uL TOTAL CELLS COUNTED IN DIFF 108 RBC MORPHOLOGY Normal PLATELET EST. Consistent w Count Note: Some lab and radiology results in this note may have populated the note after my interaction with the patient and may not have been available while the patient was under my care. Medical Decision Making and ED Course Initial Evaluation: 75 y.o. female who presents with shortness of breath. With reviewing triage note/vitals as well as initial encounter with patient and exam, I had considered at least at one time in the differential: Afib, CHF, ACS, pneumonia. I reviewed prior records and noted previous history of Afib. Initial blood work and imaging included: basic labs, chest x-ray, EKG, troponin. Medications given initially were: none Updates ED Course as of Jun 30 1735 Nadine Jun 30, 2021 1636 Bedside US showed decent EF, no pericardial effusion, normal lung slide bilaterally. [JS] ED Course User Index [JS] John Mathias MD Medications Ordered/Given Medications - No data to display Further Management Decisions and Complexity --Triage notes reviewed, vitals reviewed. --Clinical lab tests: ordered and reviewed (if available) by myself prior to discharge/admission --Independent visualization of most images, tracings, or specimens (including EKGs): yes --Attempted to obtain, review and summarize past medical records: yes --Discussed the patient with other providers: yes Speciality: CDU Critical Care / Procedures POC US LIMITED CARDIAC Date/Time: 06/30/2021 5:35 PM Performed by: John Mathias MD Authorized by: John Mathias MD Exam Type: Diagnostic Clinical Category: Symptom Based Initial or Repeat Exam: Initial Exam Indication(s) for Exam: Indication for exam: Dyspnea Views: Parasternal long axis: Adequate Parasternal short axis: Adequate Findings: Pericardial effusion: Absent Global ventricular function: Normal Interpretation: Interpretation: Normal cardiac ultrasound Comments: Normal lung slide bilaterally No critical care time was provided for the patient. Final Disposition I have discussed the case with the admitting service (CDU) including the patients diagnosis, test results, medications and current condition. The admitting service will determine the inpatient plan for the patient. While I have assisted the attending with holding orders, it should be noted that care is transferred at the time the holding orders were placed and the admitting attending is now in charge of the patient's medical care. Diagnosis: Encounter Diagnoses Code Name Primary? R06.02 Exertional shortness of breath Yes ??? I48.91 Atrial fibrillation, unspecified type Transfer to Unit: CDU in stable condition. This note has been prepared by Vandana Rodriguez acting as a scribe for Dr. John Matihas on 06/30/2021 at 4:53 PM. The scribe's documentation has been prepared under my direction and personally reviewed by me, John Mathias MD, 06/30/2021 5:36 PM, in its entirety on 06/30/21 at 5:36 PM. I confirm that the note above accurately reflects all work, treatment, procedures, and medical decision making performedby me. FILLING OPERATOR documented in this encounter Miscellaneous Notes * Treatment Plan - Clarissa Odonnell CNMT - 07/01/2021 7:45 AM CST Images from the original note were not included. [facility] [place] Medication and Flush Protocol [facility] Approved by: [facility] - Medical Executive Committee Approval Date: 09/02/2020 ORDERS ARE ENTERED ???PER PROTOCOL?? Enter the protocol in the patient's electronic health record using smartphrase: .imagingnucmedicineprotocol Communication Orders: ??? For ordered imaging procedures requiring intravenous access: ??? Initiate a peripheral IV, if not already in place, and discontinue IV prior to discharge (if outpatient). ??? Enter order if needed: Insert Peripheral IV Medication Orders: o Local Anesthetic for use to initiate IV ADULT ??? Lidocaine 4% (L.M.X.4) applied topically ONE TIME prior to IV catheter insertion PRN (L.M.X.4 %should be applied 15 minutes prior to procedure) ??? Chart RBCTAGGINGSTL and/or WBCTAGGINGSTL smartphrase as appropriate PEDIATRIC ??? Lidocaine 4% (L.M.X.4) applied topically ONE TIME prior to IV catheter insertion PRN (apply 15 minutes prior to procedure) ??? Sucrose 24% (Tootsweet; Sweet-Ease) oral solution 0.2 mL oral (apply to tongue on pacifier or clean, gloved finger), ONE TIME 2 minutes prior to painful procedure. May repeat dose x1 PRN to complete procedure. o Sodium chloride 0.9% (normal saline) flush 10 mL PRN for saline lock or medication administration. o For respiratory distress, initiate oxygen and/or increase O2 to maintain saturation greater than 90% Procedure Specific Medications: Adult Procedures & Dosages: o Note: Radiopharmaceuticals dosages with a range are determined by dye beck reel operator calibration o Note: In acute Tc99m shortages, radiopharmaceutical dosages may be decreased with approval and documentation within department from medical billing clerk/AU. PROCEDURE DOSAGE Bone Marrow Imaging Ix00h-Zibemebb Sulfur Colloid (Ixftueuwzq80r- filtered sulfur colloid), Administer 8mCi, IV, ONE TIME. Bone Scan Imaging (Whole Body, Limited, 3-Phase, or SPECT) Jr21q-UHX (Atqpboblgl58l-qpytqafqu diphosphonate), Administer 25mCi, IV, ONE TIME. OR Go17m-HAP (Rmgdiekrcc93e-eqfiapyhyfufgmor diphosphonate), Administer 25mCi, IV, ONE TIME. Page 1 of 17 Version: 5 Brain Imaging Qq71f-VGBB (Ihvsysrvqo08n-xhqakdfzzr-rrmjcnis- pentaacetate), Administer 20mCi,IV, ONE TIME. Brain SPECT Imaging Vc09p-BZPRA (Ceretec) (Ybfpwpnnvt37c- hexamethylpropylene amine oxime), Administer 20mCi, IV, ONE TIME. OR Tl-201 (Thallium Chloride-201), Administer 6mCi, IV, ONE TIME. C14 Urea Breath Test (PY Test) Y29-Prmm (Carbon-14 Urea), Administer 1uCi capsule, Orally, ONE TIME. Cisternogram Imaging In-111 DTPA (Indium-111 diethylene-triamine- pentaacetate), Neuroradiologist to administer 0.5mCi, Intrathecally, ONE TIME. Cystogram Imaging Tc-99m Pertechnetate (Laskukqziy20p-ijxjnvsgoxzxv) Administer 1mCi Ir99j-ajxdzzlmrqgwm, intra-roman catheter, ONE TIME AND Administer NS per calculated expected bladder volume, intra-roman catheter, ONE TIME. DaTscan Imaging I-123 Ioflupane (Iodine-123 ioflupane), Administer 5mCi, IV, ONE TIME. AND Administer SSKI (Potassium Iodide) drops, 130mg, Orally, ONE TIME 30 minutes prior to radiopharmaceutical injection. Diverticulum/Meckel's Imaging Tc-99m Pertechnetate (Njwhsssoay91p- pertechnetate), Administer 15mCi,IV, ONE TIME. Esophageal Reflux Imaging Nb92y-Tcrqep Colloid (Gyyfjkgnbp57p-rrlacb colloid), Administer 1mCi in 1oz whole milk. Follow with additional 7oz whole milk, Orally, ONE TIME. Ga-67 Citrate - Planar Imaging Ga-67 Citrate (Gallium-67 Citrate), Administer 5mCi, IV, ONE TIME. Ga-67 Citrate - SPECT Imaging Ga-67 Citrate (Gallium-67 Citrate), Administer 10mCi, IV, ONE TIME. Gastric Empty Imaging - Liquid Meal Ra60r-UAKA (Tuwzdwxgmf75d-jwpfizjhwm-gzjvtgns- petaacetate), Administer 1mCi in 300mL tap water, Orally, ONE TIME. Gastric Empty Imaging - Solid Meal Iu89z-Vgbqcy Colloid (Ouwvorcept27x-dpmkgo colloid), Administer 0.5mCi in 4 oz egg beaters or in 1 package of cooked instant oatmeal, Orally, ONE TIME. GI Bleed Imaging (GI Blood Loss) Tc-99m Pertechnetate (Siikzbsaau82n- pertechnetate), Administer 22mCi heparinized RBCs, IV, ONE TIME. Hepatic Blood Pool Imaging Tc-99m Pertechnetate (Clggktxytb94f-namrknbfzhomg), Administer 22mCi heparinized RBCs, IV, ONE TIME. Hepatic Hemangioma Imaging Tc-99m Pertechnetate (Tloahvgggi56r-wziunscqnrcvu), Administer 22mCi heparinized RBCs, IV, ONE TIME. Hepatobiliary Scan Imaging Tc-99m Mebrofenin (Qmplyuhzlz05r-hfoppplwki), Administer 5 mCi IV, ONE TIME *For inpatients only, if bilirubin >5mg/dL, Administer 8 mCi IV, ONE TIME *For inpatients only, if bilirubin > 8mg/dL, consult nuclear medicine physician prior to administering radiopharmaceutical Hepatobiliary Scan with Ejection Fraction Imaging Tc-99m Mebrofenin (Bhsftmyjne81w-zarcdvvnlt), Administer 5 mCi IV, ONE TIME. *For [...] Plus, Orally, ONE TIME. Hepatobiliary Scan with Pre- Treatment Imaging Tc-99m Mebrofenin (Demtrcysem13j- mebrofenin), Administer 5 mCi IV, ONE TIME. [...] 600uCi, heparanized WBC, IV, ONE TIME. AND Bg75h-VOB (Xikozxwdcy69t-bpciwdquw diphosphonate), Administer 20mCi for BMI < 35; Administer 25 mCi for BMI >= 35, IV, ONE TIME. OR In-111 Oxine (Indium-111 Oxine), Administer at least 300uCi, up to 600uCi, heparanized WBC, IV, ONETIME. AND Vu67f-Stvmnstr Sulfur Colloid (Tmgdedoewr90p-qmtrkbwy sulfur colloid), Administer 8mCi, IV, ONE TIME. In-111 WBC Imaging In-111 Oxine (Indium-111 Oxine), Administer at least 300uCi, up to 600uCi, heparanized WBC, IV, ONETIME. Liver/Spleen Imaging Fy49p-Zentzv Colloid (Klwqduartb10t-gbjfmh colloid), Administer 5mCi, IV, ONE TIME. Lung Aerosol Perfusion Imaging Tc-99m MAA (Yvcfxjimxa15k-kxkanmvkgfnvjan albumin), Administer 5mCi,IV, ONE TIME. Lung Xenon Perfusion Imaging (normal or quantitative) Tc-99m MAA (Vexfuylvhv23k- macroaggregated albumin), Administer 4mCi, IV, ONE TIME. Lung Aerosol Ventilation Imaging Yz54x-VCDZ (Fypuorqelq25z-wwblgdeiuw-awtbybcp- pentaacetate), Administer 40mCi in 2mL NS via aerosol delivery device, Inhalation, ONE TIME. Lung Xenon Ventilation Imaging (normal or quantitative) Xe-133 (Xenon-133), Administer at least 10 mCi, up to 30 mCi, Inhalation, ONE TIME. Lung Perfusion Imaging (normal or quantitative) Tc-99m MAA (Eiroswphju24x- macroaggregated albumin),Administer 4mCi, IV, ONE TIME. Lung Perfusion SPECT Quantitative Tc-99m MAA (Xjwvzjnnfo58y-xnpnrhuldwxdepq albumin), Administer 7mCi, IV, ONE TIME Lung Perfusion Imaging - Patient (normal or quantitative) Tc-99m MAA (Jmotfvlxjb24o-xkyqcdkdjfwupaq albumin), Administer 2mCi, IV, ONE TIME. Lymphoscintigraphy - Breast Cancer, Next Day Surgery Ns23f-Qomwytldmw (Hlqtcjumeh83q-cxocbsibrf), Administer 2mCi in 2 divided doses of 1mCi each, intradermal, ONE TIME. Lymphoscintigraphy - Breast Cancer, Same Day Surgery Xs49r-Fdwlpldorp (Cgfxcpdulp69y-cvmfeywwxj), Administer 0.5mCi in 2 divided doses of 250uCi each, intradermal, ONE TIME. Lymphoscintigraphy - Lymphedema Qn63x-Gngvdadpuy (Lmyzwaucnl66z-wfdgkaufwb), For each extremity, administer 2mCi in 2 divided doses of 1mCi each, subcutaneous, ONE TIME. Lymphoscintigraphy - Head & Neck Cancer, Next Day Surgery Ab84c-Hkesnldcyk (Kjpmrljxwh70t-zhtjpvrhhz), Administer 2mCi in 2 divided doses of 1mCi each, intradermal, ONE TIME. Lymphoscintigraphy - Head & Neck Cancer, Same Day Surgery Aw77n-Xblzlomdvk (Uvvrbxkznz29y-exenstlgyh), Administer 0.5mCi in 2 divided doses of 250uCi each, intradermal, ONE TIME. Lymphoscintigraphy - Skin Cancer, Next Day Surgery Du62q-Gdxhpyvnsa (Frftynpoew01g-goperqvvmb), Administer 2mCi in 4 divided doses of 0.5mCi each, intradermal, ONE TIME. Lymphoscintigraphy - Skin Cancer, Same Day Surgery Cy31p-Qxdugtdvep (Uvkegexqnx74b-lzvbxomsrx), Administer 0.5mCi in 4 divided doses of 125uCi each, intradermal, ONE TIME. Lymphoscintigraphy - Skin Cancer, Small Body Area, Next Day Surgery Tc99m- Lymphoseek (Hfzeaxrkqh18l-bralrfltwx), Administer 2mCi in 2 divided doses of 1mCi each, intradermal, ONE TIME. Lymphoscintigraphy - Skin Cancer, Small Body Area, Same Day Surgery Tc99m- Lymphoseek (Lezvzneprd31x-tuxguppcrh), Administer 0.5mCi in 2 divided doses of 250uCi each, intradermal, ONE TIME. Lymphoscintigraphy - Vulvar Melanoma Next Day Surgery Rc62g-Vzryugoggj (Ginpinekdk78t-lasqunenuk), Administer 2mCi in 1 dose, intradermal, ONE TIME. Lymphoscintigraphy - Vulvar Melanoma, Same Day Surgery Vy76c-Cllryiffey (Yhhptzcgmj65j-ipmytsalkg), Administer 0.5mCi in 1 dose, intradermal, ONE TIME. MIBG Imaging I-123 MIBG (Iodine-123 metaiodobenzylguandidine), Administer 10mCi, IV, ONE TIME. AND Administer SSKI (Potassium Iodide) drops, 130mg, Orally, ONE TIME 30 minutes prior to radiopharmaceutical injection. Microsphere Mapping (Y90 Mapping) Tc-99m MAA (Glnujoqsuv31b-kscywqyxvwaeyjj albumin), Interventional Radiologist to administer (1) 2mCi in in 2mL NS, intra- arterial via catheter, ONE TIME. OR Tc-99m MAA (Inuhlhzdtl64w-dbelkbscdrrgpcf albumin), Interventional Radiologist to administer (2) 2mCi in in 2mL NS, intra-arterial via catheter, ONE TIME. MUGA/RVG Imaging Tc-99m Pertechnetate (Iamfbykbek27j-ooqckoffoiopa), Administer 22mCi heparinized RBCs, IV, ONE TIME. Myocardial Amyloid Scintigraphy (Hot PYP Scan) Qn65q-KIU (Ukqyoaiaqf50t- pyrophosphate), Administer 15mCi, IV, ONE TIME. Myocardial Dual Isotope Imaging Tl-201 (Thallium Chloride-201) AND Mg80l-Zjcoqqr (Zccdewawsc31t-stpmfzi), Administer 3mCi Tl-201for resting images, IV, ONE TIME AND Administer Fk58z-Wljzjdy (Rzhmwfsmor50m-zbrruta), for stress images based on patient's weight, IV, ONE TIME. Male or Female Patients: <180lbs: 12mCi Male or Female Patients: 181-240lbs: 15mCi Female Patients 241-265lbs: 18mCi Male Patients 241-330lbs: 18mCi Female Patients >265lbs: 24mCi Male Patients >330lbs: 24mCi Myocardial Planar Imaging (for patients >= table weight limit) Lk03f-Xsevses (Ezehoqruvs50a-Jframub), Administer 30mCi, IV, ONE TIME for rest images, ONE TIME forstress images. Myocardial Rest Imaging - SPECT Imaging Tl-201 (Thallium Chloride-201), Administer 4mCi, IV, ONE TIME. OR Ev78h-Slxrmcy (Wgkiyzehti68y-Pixqush), Administer 6mCi for female patients ?? 264 lb., IV, ONE TIME. OR Xi47c-Warcqvt (Afheqhxzcd50g-Svphodv), Administer 6mCi for male patients ?? 329 lb., IV, ONE TIME. OR Sm36x-Yaricgh (Bdwbozjqdo73h-Ehiwezf), Administer 8mCi for female patients >= 265-399 lb., IV, ONE TIME. OR Lx86t-Rcdnawe (Efrcnddgua13c-Ldflblo), Administer 8mCi for male patients >= 330-399 lb., IV, ONE TIME. OR Pr73a-Wrcypwt (Uzakudidbq25n-Cvwuaji), Administer 10mCi for all patients >= 400- 500 lb., IV, ONETIME. Myocardial Stress - SPECT Imaging Za85k-Xocktyw (Crvgtrtedq38p-Obyvpya), Administer 18mCi for female patients ?? 264 lb., IV, ONE TIME. OR Fx32r-Oktqakr (Ooozbsdcgb01a-Xtsaenl), Administer 18mCi for male patients ?? 329 lb., IV, ONE TIME. OR Ih45d-Ofmbktc (Fvaujarldz66d-Kmcnivs), Administer 24mCi for female patients >= 265-399 lb., IV, ONE TIME. OR Zc52c-Nkeqfwv (Kxfovwqbez55w-Sbqnqrj), Administer 24mCi for male patients >= 330-399 lb., IV, ONE TIME. OR Eh88f-Ffdnbtq (Jkboznegfh89l-Lkohlvd), Administer 30mCi for all patients >= 400- 500 lb., IV, ONETIME. Myocardial Viability Imaging Tl-201 (Thallium Chloride-201), Administer 3mCi, IV, ONE TIME. AND Administer 1mCi, IV, ONE TIME 3.5 hours post rest injection. Octreoscan In-111 Pentetreotide (Indium-111 Pentetreotide), Administer 6mCi, IV, ONE TIME. Parathyroid Imaging Mw26w-Lgfkdaegw (Bkwucfuhym98z-gfvcaldzq), Administer 20mCi, IV, ONE TIME. Peritoneal Cavity Scintigraphy Ez37s-Ksgxoe Colloid (Fcbboikrpl47x-xxmgnq colloid), Administer 2mCiin 3mL NS, via peritoneal dialysis, ONE TIME. Peritoneovenous Shunt Scintigraphy Tc-99m MAA (Wsgccatcxr32n-ihleokwmcxcpjst albumin), Physician toadminister 5mCi in 3mL NS, Intraperitoneal, ONE TIME. PET/CT Axumin F-18 Axumin (Pkjynhmr30-hegatjzictgi), Administer 10mCi, IV, ONE TIME. PET/CT Bone Scan F18-NaF (Klbvkvxn78-kmsexi fluoride), Administer at least 8mCi, up to 11mCi, IV, ONE TIME. PET/CT Brain Imaging (Amyvid) F18- florbetapir [Amyvid??, (E)-4-(2-(6-(2-(2-(2[F-18]- (fluoroethoxy)ethoxy)ethoxy)neyyciuv-0-jg)vinyl)-N- methylbenzamine], Administer 10mCi, IV, ONE TIME. PET/CT Brain Imaging (FDG) F18-FDG (Shrwljqm36-dynbtyjtwjmwtyrho), Administer 10mCi, IV, ONE TIME. PET/CT Dotatate Imaging Ga-68 Dotatate (Gallium-68 Dotatate), Administer 5.4mCi, IV, ONE TIME. PET/CT Dotatate Imaging Cu-64 Detectnet (Copper-64 Dotatate), Administer 4mCi, IV, ONE TIME. PET/CT Myocardial Scan (Sarcoidosis or Viability) F18-FDG (Rjsduted46- flurodeoxyglucose), Administer 0.11mCi/kg with at least 8mCi, up to 17mCi, IV, ONE TIME. Renal Scintigraphy (JENNIFER-Inhibitor Renal Scan) Eg54t-POP5 (Qrqijwpzzh17i- mercaptoacetyltriglcine), Administer 5mCi, IV, ONE TIME. AND Administer Enalaprilat (Vasotec) 2.5mg, IV, ONE TIME. Dilute to 5mL total volume with normal salineand infuse via hand push injection over 5 minutes. OR Administer Captopril, 50mg capsule crushed and dissolved in 150mL tap water, Orally, ONE TIME. Renal Scintigraphy (Cortical Imaging) Yj23c-UTCV (Rdedmfemyy58s- dimercaptosuccinic acid), Administer 5mCi, IV, ONE TIME. Renal Scintigraphy (Diuretic Renal Scan) Bg14t-FKUA (Svkkwjznnm98o-sdqapwohea-jbbdumds- pentaacetate), Administer 5mCi, IV, ONE TIME. AND Administer Lasix (furosemide) 40mg, IV push over 2 minutes, ONE TIME. OR Tr53a-SOV0 (Alddhuxzei36b-bkfozckvooqmxgesvwocuqe), Administer 5mCi, IV, ONE TIME. AND Administer Lasix (furosemide), 40mg, IV push over 2 minutes, ONE TIME. Renal Scintigraphy (Flow and Function Scan) Fm75r-CNKE (Epcckspnuz19g-daysfzrisj-lashhpfi- pentaacetate), Administer 5mCi, IV, ONE TIME. OR Ao77l-GOQ2 (Fuupuryprr77f-iwhyudgccqelvvcymrqbmug), Administer 5mCi, IV, ONE TIME. Renal Scintigraphy (Renal Transplant Scan) Ke77m-NRCD (Ugzggglhbm39b-zesqzapppa-ehxnpxfi- pentaacetate), Administer 5mCi, IV, ONE TIME. OR Fj75b-GRB3 (Zwctwwogcm50l-qsfoejwwynchipdyswerrvq), Administer 5mCi, IV, ONE TIME. Salivary Imaging Tc-99m Pertechnetate (Ydcnyrlmpc23i-memxffxhjmryf), Administer 5mCi, Orally, ONE TIME. Shunt Patency Imaging (CSF Shunt Imaging) Ff97d-NKBO (Cbolfxzqbe38o-djfciqaisa-fzdvoomq- pentaacetate), Neurosurgeon or neurosurgeon's PA to administer 0.5mCi, intra-shunt reservoir, ONE TIME. Splenic Imaging Tc-99m Pertechnetate (Jdcvfkcnbf51z-goooghiprvgzd), Administer 6mCi heparinized, heat damaged RBCs, IV, ONE TIME. Ec61c-ILB Imaging Ja72d-Fsaxliv (Kggojoudgy01l-Wlpbzxa), Administer 15mCi heparinized WBC, IV, ONE TIME. Thyrogen Injection Thyrogen (thyrotopin nitish), Administer 0.9mg, deep IM, every 24 hours for 2 doses. Thyroid Imaging Tc-99m Pertechnetate (Ecnbaehehf20q-txqpdexnwkqfr), Administer 10mCi, IV, ONE TIME. OR I-123 Na Iodide (Iodide-123 Na Iodide), Administer 200 uCi capsule, Orally, ONE TIME. Thyroid Scan & Uptake I-123 Na Iodide (Iodide-123 Na Iodide), Administer 200 uCi capsule, Orally, ONE TIME. Thyroid Uptake [...] mCi capsule or solution, Orally, ONE TIME. Pediatric Procedures & Dosages: o Note: Radiopharmaceuticals dosages with a range are determined by dye beck reel operator calibration o Note: In acute Tc99m shortages, radiopharmaceutical dosages may be decreased with approval and documentation within department from medical billing clerk/AU. PROCEDURE DOSAGE Bone Marrow Imaging Py21u-Sljaoegi Sulfur Colloid (Dpoxfoqgma05g-hbunofkv sulfur colloid), Administer 0.14mCi/kg with at least 1mCi, up to 8mCi, IV, ONE TIME. Bone Scan Imaging (Whole Body, Limited, 3-Phase, or SPECT) Qx42z-SSB (Wqjcmxwdlq26j-hzvatsdcn diphosphonate), Administer 0.25mCi/kg with at least 1mCi, up to 25mCi, IV, ONE TIME. OR Ie14q-BPE (Hyuhynfsjs60y-cyytrhkalddpljfu diphosphonate), Administer 0.25mCi/kg with at least 1mCi,up to 25mCi, IV, ONE TIME Brain Imaging Om03r-ZHCY (Bhgparoubq84b-rwdmimrtdo-jbtterst- pentaacetate), Administer 0.3mCi/kg with at least 5mCi, up to 20mCi, IV, ONE TIME. Brain SPECT Imaging Tj62u-VXJVE (Ceretec) (Ckcnbgdrqc65p- hexamethylpropylene amine oxime), Administer 0.3mCi/kg with at least 3mCi, up to 20mCi, IV, ONE TIME. C14 Urea Breath Test (PY Test) X70-Jecs (Carbon-14 Urea), Administer 1uCi capsule, Orally, ONE TIME. Cisternogram Imaging In-111 DTPA (Indium-111 gpkdvzdjrr-egqkcakm-hxhaqdiwjzih), Neuroradiologist to administer 0.07mCi/kg with at least 0.1mCi, up to 0.5mCi, Intrathecally, ONE TIME. Cystogram Imaging Tc-99m Pertechnetate (Lffykryhwx89a-aquxajcnumneg) Administer 1mCi, intra-roman catheter, ONE TIME AND Administer NS per calculated expected bladder volume, intra- roman catheter, ONE TIME. Diverticulum/Meckel's Imaging Tc-99m Pertechnetate (Xubcmbgpbu44g- pertechnetate), Administer 0.05mCi/kg with at least 0.25mCi, up to 15mCi, IV, ONE TIME. Esophageal Reflux Imaging - <1yoa Ow84r-Clgwtx Colloid (Fxwntowjoz31q-nwlauc colloid), Administer 0.1mCi for patients <3.5lb., Orally, [...] feed the remaining ?? 'cold'; feed the radioactive labeled formula/milk and then 'cold' formula/milk over a 10-minute total period of time. Esophageal Reflux Imaging - >1yoa Ud72f-Rkqcvv Colloid (Qjjsdoadyd61y-hfqahe colloid), Administer 0.5mCi in 1 oz whole milk, Orally, ONE TIME. Follow with 7 oz whole milk. Ga-67 Citrate - Planar Imaging Ga-67 Citrate (Gallium-67 Citrate), Administer 0.07mCi/kg with at least 0.5mCi, up to 5mCi, IV, ONE TIME. Ga-67 Citrate - SPECT Imaging Ga-67 Citrate (Gallium-67 Citrate), Administer 0.14mCi/kg with at least 1mCi, up to 10mCi, IV, ONE TIME. Gastric Empty Imaging - Liquid Meal Qt34f-Xlfwnx Colloid (Fnrwkjxdaz95c-tunmyd colloid), Administer7 uCi/kg with at least 250uCi, up to 500uCi, Orally, ONE TIME. *For all administrations, determine amount of formula or breast milk patient consumes in 1 hour by dividing their normal feed amount by 4. Then, take this calculated amount and divide into 2 so that you can tag ?? with the radiopharmaceutical and feed the remaining ?? 'cold'; feed the infant radioactive labeled formula/milk and then 'cold' formula/milk over a 10-minute total period of time.OR Kn13s-XQFC (Pdunqnktyf46x-tfysfjedwc-sdhwedgj- petaacetate), Administer 1mCi in 300mL tap water, Orally, ONE TIME. *Follow Sq26h-IKBR dosing if the pediatric patient is not an and consumes water. Gastric Empty Imaging - Solid Meal Ws89s-Masfgq Colloid (Zzsqxpnrfy63q-ctrsyo colloid), Administer 7uCi/kg with at least 250uCi, up to 500uCi in 4 oz egg beaters or in 1 package of cooked instant oatmeal, Orally, ONE TIME. GI Bleed Imaging (GI Blood Loss) Tc-99m Pertechnetate (Xyionxdhwo06v- pertechnetate), Administer 0.32mCi heparinized RBCs with at least 2mCi, up to 22mCi, IV, ONE TIME. Hepatic Blood Pool Imaging Tc-99m Pertechnetate (Dgbfhkmetz77g-jnnozdmlhhbdj), Administer 0.32mCi heparinized RBCs with at least 2mCi, up to 22mCi, IV, ONE TIME. Hepatic Hemangioma Imaging Tc-99m Pertechnetate (Fuybomsewv94m-vzmgtwuvcuoib), Administer 0.32mCi heparinized RBCs with at least 2mCi, up to 22mCi, IV, ONE TIME. Hepatobiliary Scan Imaging Tc-99m Mebrofenin (Cejadmnsux39n-zodyezuwyp), Administer 0.05mCi/kg withat least 0.5mCi, up to 5mCi, IV, ONE TIME *For inpatients only, if bilirubin >5mg/dL, Administer 0.08mCi/kg with at least 1mCi, up to 8mCi, IV, ONE TIME *For inpatients only, if bilirubin > 8mg/dL, consult nuclear medicine physician prior to administering radiopharmaceutical Hepatobiliary Scan Imaging for in Jaundice Tc-99m Mebrofenin (Hjmmoegccl63o-jyuxqnatdw), Administer 0.08mCi/kg with at least 1mCi, up to 8mCi, IV, ONE TIME AND Administer Phenobarbital 5mg/kg/day (may be administered in 2 divided doses) for 5 days prior to imaging, IV, ONE TIME PER DAY. Hepatobiliary Scan with Ejection Fraction Imaging Tc-99m Mebrofenin (Sjaxkldyqv52w-koqyqloahm), Administer 0.05mCi/kg with a at least 0.5mCi, [...] Plus, Orally, ONE TIME. Hepatobiliary Scan with Pre- Treatment Imaging Tc-99m Mebrofenin (Gnhhvvnokx64x- mebrofenin), Administer 0.05mCi/kg with a at least [...] 500uCi, heparanized WBC, IV, ONE TIME. AND Qo42i-BWO (Iipmcprrhc35s-wpjrkgvwu diphosphonate), Administer 0.25mCi/kg with at least 1mCi, up to 20mCi, IV, ONE TIME. OR In-111 Oxine (Indium-111 Oxine), Administer 5uCi/kg with at least 300uCi, up to 500uCi, heparanizedWBC, IV, ONE TIME. AND Aa38u-Snnzgduo Sulfur Colloid (Vcnakndxqn31u-kipphxev sulfur colloid), Administer 0.14mCi/kg with at least 1mCi, up to 8mCi, IV, ONE TIME. In-111 WBC Imaging In-111 Oxine (Indium-111 Oxine), Administer 5uCi/kg with at least 300uCi, up to 500uCi, heparanized WBC, IV, ONE TIME. Liver/Spleen Imaging Ke11s-Ocqalf Colloid (Ukngoabicg94p-qfmnwo colloid), Administer 0.05mCi/kg with at least 0.5mCi, up to 5mCi, IV, ONE TIME. Lung Aerosol Perfusion Imaging Tc-99m MAA (Zmlpvkcslv60w-wcwdiwmitudmynm albumin), Administer 0.03mCi/kg, with at least 0.4mCi, up to 4mCi IV, ONE TIME. Lung Xenon Perfusion Imaging (normal or quantitative) Tc-99m MAA (Rxuzahiwnu95z- macroaggregated albumin), Administer 0.03mCi/kg, with at least 0.4mCi, up to 4mCi IV, ONE TIME. Lung Aerosol Ventilation Imaging Hc88w-HNDT (Hrhdymutof09m-ogoqlisuyb-zscgtkfg- pentaacetate), Administer 40mCi in 2mL NS via aerosol delivery device, Inhalation, ONE TIME. Lung Xenon Ventilation Imaging (normal or quantitative) Xe-133 (Xenon-133), Administer 10 mCi, inhalation, ONE TIME. Lung Perfusion Imaging (normal or quantitative) Tc-99m MAA (Ficbvdgumx43z- macroaggregated albumin),Administer 0.03mCi/kg, with at least 0.4mCi, up to 4mCi IV, ONE TIME. Lung Perfusion Imaging - Patient (normal or quantitative) Tc-99m MAA (Ezgwoelquy50x-okrldvabihrgzma albumin), Administer 0.03mCi/kg, with at least 0.4mCi, [...] Orally, ONE TIME. MUGA/RVG Imaging Tc-99m Pertechnetate (Seajnczsyq27j-kwwjixbvcxutj), Administer 0.32mCi/kg heparinized RBCs with at least 2mCi, up to 22mCi, IV, ONE TIME. Myocardial Amyloid Scintigraphy (Hot PYP Scan) Jx91s-JLY (Ghxdyqeuii18r- pyrophosphate), Administer 0.28mCi/kg, with at least 2.5mCi, up to 15mCi IV, ONE TIME. Myocardial Rest Imaging - SPECT Imaging Dn89u-Bprjydc (Bnmfbaocnx66n-Uiwhjfp), Administer 0.15mCi/kg, with at least 2mCi, up to 8mCi IV, ONE TIME. Myocardial Stress Imaging - SPECT Imaging Sm76x-Cwebdzb (Jxabclmjjt83m-Swqgplx), Administer 0.45mCi/kg, with at least 6mCi, up to 24mCi IV, ONE TIME. Octreoscan In-111 Pentetreotide (Indium-111 Pentetreotide), Administer 0.08mCi/kg with at least 1mCi, up to 6mCi, IV, ONE TIME. Parathyroid Imaging Lh38e-Fepybyfig (Dlnizvyonn37o-llgzeayis), Administer 0.25mCi/kg, with at iimvm9aAt, up to 20mCi IV, ONE TIME. Peritoneal Cavity Scintigraphy Uc31j-Eatmkl Colloid (Cyqlhassqj56w-cdfmzp colloid), Administer 0.07mCi/kg in 2mL NS with at least 1mCi, up to 2mCi, via peritoneal dialysis, ONE TIME. Peritoneovenous Shunt Scintigraphy Tc-99m MAA (Geplcojnwk09q-dpeydnfabyisgoh albumin), Physician toadminister 0.07mCi/kg with at least 1mCi, up to 5mCi in 2mL NS, Intraperitoneal, ONE TIME. PET/CT Bone Scan F18-NaF (Xuzcptnv11-ljbcyf fluoride), Administer 0.11mCi/kg with at least 2mCi, upto 11mCi, IV, ONE TIME. PET/CT Brain Imaging (FDG) F18-FDG (Ghmctysc49-ngcwpsiqahbqllhqc), Administer 0.10mCi/kg with at least 2mCi, up to 10mCi, IV, ONE TIME. PET/CT Limited, Standard, or Whole- Body Oncology Imaging F18-FDG (Cnncvcxz31- flurodeoxyglucose), Administer 0.11mCi/kg with at least 2mCi, up to 10mCi, IV, ONE TIME. PET/CT Dotatate Imaging Ga-68 Dotatate (Gallium-68 Dotatate), Administer 0.054mCi/kg up to 5.4mCi, IV, ONE TIME. (Minimum dose determined by AU). Renal Scintigraphy (JENNIFER-Inhibitor Renal Scan) Xw18g-FMQ8 (Acmibjedym82z- mercaptoacetyltriglcine), Administer 0.1mCi/kg with at least 1mCi, up to 5mCi, IV, ONE TIME. AND Administer Enalaprilat (Vasotec) 0.04mg/kg with a maximum dose of 2.5mg, IV, ONE TIME. Dilute to 5mL total volume with normal saline and infuse via hand push over 5 minutes. Renal Scintigraphy (Cortical Imaging) Xr04f-FVVE (Gqpevpfawr79l- dimercaptosuccinic acid), Administer 0.05mCi/kg with at least 0.5mCi, up to 5mCi, IV, ONE TIME. Renal Scintigraphy (Diuretic Renal Scan) Bm68b-GHPX (Gsibbsxmuq44u-mdghhisxey-ndqtusuc- pentaacetate), Administer 0.2mCi/kg with at least 2mCi, up to 5mCi, IV, ONE TIME. AND Administer Lasix (furosemide), 1mg/kg, up to 40mg, IV push over 2 minutes, ONE TIME. A reduced dosage of 0.5mg/kg may be used per direction of nuclear medicine physician. OR Cf14b-VMT7 (Qgwdlxxcfh65a-fpceqparqlnwgazosdhsujt), Administer 0.1mCi/kg with at least 1mCi, up to 5mCi, IV, ONE TIME. AND Administer Lasix (furosemide), 1mg/kg, up to 40mg, IV push over 2 minutes, ONE TIME. A reduced dosage of 0.5mg/kg may be used per direction of the nuclear medicine physician. Renal Scintigraphy (Flow and Function Scan) Iu71t-ZEIL (Uxuyjrlkmt40d-odabcpjemv-qzcggsno- pentaacetate), Administer 0.2mCi/kg with at least 2mCi, up to 5mCi OR Ia24s-KWR2 (Xdpvsctgzb42w-oaqnryudagtevlevrcyxmhq), Administer 0.1mCi/kg with at least 1mCi, up to 5mCi, IV, ONE TIME. Renal Scintigraphy (Renal Transplant Scan) Vy12s-OKJO (Mhzgqenqpb49l-juciqjnoas-pnkdofcj- pentaacetate), Administer 0.2mCi/kg with at least 2mCi, up to 5mCi OR Bj68n-SCO3 (Idcbeelxzp92e-bjgtoqgttstrsbgzswdsemw), Administer 0.1mCi/kg with at least 1mCi, up to 5mCi, IV, ONE TIME. Salivary Imaging Tc-99m Pertechnetate (Ovazayczqz54v-fturbeaxlaexq), Administer 0.05mCi/kg with at least 0.25mCi, upto 5mCi, Orally, ONE TIME. Shunt Patency Imaging (CSF Shunt Imaging) Ab75h-EBXJ (Cknmbddgfq57a-lunsumidfb-gzzhtmnw- pentaacetate), Neurosurgeon or neurosurgeon's PA to administer 0.01mCi/kg with at least 0.4mCi, up to 0.5mCi, intra-shunt reservoir, ONE TIME. Splenic Imaging Tc-99m Pertechnetate (Hfjhqunmkl42f-kuhbxslkomojb), Administer 0.03mCi/kg with at least 0.5mCi, up to 6mCi heparinized, heat damaged RBCs, IV, ONE TIME. Hx14e-KAO Imaging Td92s-Iartiep (Ckekvvsnvn66o-Rwugwpu), Administer 0.2mCi/kg with at least 2mCi, up to 15mCi, heparinized WBC, IV, ONE TIME. Thyroid Imaging Tc-99m Pertechnetate (Sottrrmvrk36s-adclqrervknwn), Administer 0.07mCi/kg with at least 1mCi, up to 10mCi, IV, ONE TIME. Thyroid Scan & Uptake I-123 Na Iodide (Iodide-123 Na Iodide), Administer dosage per treating AU& fill out special prescription form, Orally, ONE TIME. Thyroid Uptake I-123 Na [...] dose per treating AU), Orally, ONE TIME. FILLING OPERATOR documented in this encounter Plan of Treatment Upcoming Encounters Date Type Department Care Team (Late st Contact Info) Description 2024 11:00 AM MOLD FILLING OPERATOR Appointment [facility] [address] [place] [phone] 07/21/2024 9:45 AM MOLD FILLING OPERATOR Appointment [facility] Education Director [address] [place] [phone] Kiel Vasquez MD [address] [facility] [address] [place] [address] 07/21/2024 9:53 AM MOLD FILLING OPERATOR Hospital Encounter [facility] Education Director [address] [place] [phone] Kiel Vasquez MD [address] [facility] [address] [place] [address] Paroxysmal A-fib 07/21/2024 9:53 AM MOLD FILLING OPERATOR - 07/21/2024 11:46 AM MOLD FILLING OPERATOR Surgery [facility] Education Director [address] [place] [address] Kiel Vasquez MD [address] [facility] [address] [place] [address] Left atrial appendage closure percutaneous 07/28/2024 8:30 AM MOLD FILLING OPERATOR Office Visit [facility] Oncology and Hematology - [place] [address] [place] [phone] Nahid Hickman MD [address] [address] 09/09/2024 1:00 PM CDT Office Visit [facility] Heart and Vascular At [address] [place] [phone] Kiel Vasquez MD [facility] [address] [facility] [address] [place] [address] 12/16/2024 11:00 AM CDT Office Visit [facility] HEART AND VASCULAR EP AT [address] [place] [phone] Demetrius Bowling DNP [facility] [address] [facility] [address] [place] [address] 02/05/2025 10:45 AM CDT Telephone Check Up [facility] Heart and Vascular At [facility] [address] [facility] [address] [place] [address] 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 FNP [address] [place] [address] documented as of this encounter Procedures Procedure Name Priority Date/Time Associated Diagnosis Comments ECHOCARDIOGRAM W/ CONTRAST AGENT Pending Discharge 07/01/2021 2:46 PM MOLD FILLING OPERATOR HM EJECTION FRACTION Routine 07/01/2021 10:30 AM MOLD FILLING OPERATOR NM MYOCARD PERF IMAG SPECT MULT Stat 07/01/2021 10:30 AM MOLD FILLING OPERATOR NM PHARMACOLOGICAL STRESS TEST Stat 07/01/2021 9:16 AM MOLD FILLING OPERATOR EKG 12-LEAD Stat 07/01/2021 3:33 AM MOLD FILLING OPERATOR TROPONIN 6 HR, 5TH GEN Stat 2 11:01 PM MOLD FILLING OPERATOR TROPONIN 2 HR, 5TH GEN Timed Study 2 8:11 PM MOLD FILLING OPERATOR PULSE OXIMETRY, CONTINUOUS Stat 06/30/2021 6:46 PM MOLD FILLING OPERATOR POC US LIMITED CARDIAC Stat 2 5:35 PM MOLD FILLING OPERATOR XR CHEST PA OR AP 1 VW Stat 2 4:18 PM MOLD FILLING OPERATOR TROPONIN BASELINE, 5TH GEN Stat 06/30/2021 4:04 PM MOLD FILLING OPERATOR DIFFERENTIAL, MANUAL Stat 06/30/2021 4:04 PM MOLD FILLING OPERATOR CBC WITH DIFFERENTIAL Stat 06/30/2021 4:04 PM MOLD FILLING OPERATOR BRAIN NATRIURETIC PEPTIDE, BNP OR PROBNP Stat 06/30/2021 4:04 PM MOLD FILLING OPERATOR COMPREHENSIVE METABOLIC PANEL Stat 06/30/2021 4:04 PM MOLD FILLING OPERATOR EKG 12-LEAD Stat 06/30/2021 3:05 PM MOLD FILLING OPERATOR documented in this encounter Results * ECHOCARDIOGRAM W/ CONTRAST AGENT (07/01/2021 2:46 PM MOLD FILLING OPERATOR) EJECTION FRACTION 65 INTERFACE SYSTEM 07/01/2021 1:48 PM MOLD FILLING OPERATOR Narrative INTERFACE SYSTEM - 07/01/2021 3:45 PM MOLD FILLING OPERATOR -- [address] [address] [email or web address] -- Transthoracic Echocardiography -- Patient: ? Zee Martinez MRN: ? [id number] Study ID: ?[id number] Gender: ?F : ? 1945 Age: ? 75 Race: ?CAU Height ? 160cm Study Date: ?07/01/2021 Weight: ?66.7kg Access. #: ? [id number] Account #: ? [id number] BP: -- -- *Referring Physician:* Laura Roberts *Ordering Physician:* ??Laura Roberts Staff Nurse Anesthetist: boatswains mate: Nurse: -- Indications: SOB / CONDE. STUDY CONCLUSIONS: SUMMARY: -- - Left ventricle: The cavity size was normal. Wall thickness was increased. ??Global systolic function was normal. The estimated ejection fraction was ??65%. Diastolic function assessment consistent with abnormal left ventricular ??relaxation (grade 1 diastolic dysfunction). - Aortic valve: Structurally normal valve. Trileaflet. - Mitral valve: Structurally normal valve. No significant regurgitation. - Left atrium: The atrium was normal in size. - Right ventricle: The cavity size was normal. Systolic function was normal. - Pulmonary arteries: The peak pressure during systole by Doppler is 25mm Hg. -- Cardiac Anatomy: LEFT VENTRICLE: ??The cavity size was normal. Wall thickness was increased. Global systolic function was normal. The estimated ejection fraction was 65%. Diastolic function assessment consistent with abnormal left ventricular relaxation (grade 1 diastolic dysfunction). AORTIC VALVE: ?? Structurally normal valve. Trileaflet. ??Doppler: ?? No significant regurgitation. ?The LVOT to aortic valve VTI ratio is 0.69. The valve area by the velocity-time integral method is 2.2cm^2. The valve area index by the velocity-time integral method is 1.28cm^2/m^2. The ratio of LVOT to aortic valve peak velocity is 0.6. The valve area by the peak velocity method is 1.9cm^2. The valve area index by the peak velocity method is 1.11cm^2/m^2. ?The mean systolic gradient is 3mm Hg. The peak systolic gradient is 8mm Hg. AORTA: ??Aortic root: The aortic root was normal in size. MITRAL VALVE: ?? Structurally normal valve. ?Doppler: ?? No significant regurgitation. LEFT ATRIUM: ??The atrium was normal in size. RIGHT VENTRICLE: ??The cavity size was normal. Systolic function was normal. PULMONIC VALVE: ?? Structurally normal valve. ?Doppler: ?? No significant regurgitation. The mean systolic gradient is 2mm Hg. The peak systolic gradient is 3mm Hg. TRICUSPID VALVE: ?? Structurally normal valve. ?Doppler: ?? No significant regurgitation. RIGHT ATRIUM: ??The atrium was normal in size. PERICARDIUM: ??There was no pericardial effusion. Systemic veins: Inferior vena cava: The vessel was normal in size. Measurements -- -- Left ventricle ? Value ?Ref ROCIO, LAX ? (L) ? 3.0 ?? cm ? 3.8 - 5.2 ROCIO/bsa, LAX ? (L) ? 1.8 ?? cm/m^2 ?? 2.3 - 3.1 ROCIO, LAX chord ? (N) ? 4.5 ?? cm ? 3.8 - 5.2 ESD, LAX chord ? (N) ? 3.0 ?? cm ? 2.2 - 3.5 PW, ED ? (H) ? 1.0 ?? cm ? 0.6 - 0.9 SV ? 50 ?ml ? --------- SV/bsa ? 29 ?ml/m^2 ?? --------- EDV, 2-p ? (N) ? 92 ?ml ? 46 - 106 ESV, 2-p ? (N) ? 26 ?ml ? 14 - 42 EF, 2-p ?(N) ? 72 ?% ?54 - 74 SV, 2-p ?66 ?ml ? --------- EDV/bsa, 2-p ? (N) ? 54 ?ml/m^2 ?? 29 - 61 ESV/bsa, 2-p ? (N) ? 15 ?ml/m^2 ?? 8 - 24 SV/bsa, 2-p ?38.8 ??ml/m^2 ?? --------- E', lat john, TDI ?? (L) ? 6.9 ?? cm/sec ?? >=10.0 E/e', lat john, TDI ? 9 ?--------- E', med john, TDI ?? (L) ? 6.5 ?? cm/sec ?? >=7.0 E/e', med john, TDI ? 9 ?--------- E', avg, TDI ? 6.7 ?? cm/sec ?? --------- E/e', avg, TDI ? (N) ? 9 ?<=14 LVOT ? Value ?Ref Diam, S ?2.0 ?? cm ? --------- Area ? 3.1 ?? cm^2 ? --------- Peak alnce, S ?0.84 ??m/sec ?--------- VTI, S ? 15.9 ??cm ? --------- Ventricular septum ? Value ?Ref IVS, ED ?(H) ? 1.1 ?? cm ? 0.6 - 0.9 Right ventricle ?Value ?Ref Pressure, S ?25 ?mm Hg ?--------- RVOT ? Value ?Ref Peak grad, S ? 1 ? mm Hg ?--------- Left atrium ?Value ?Ref AP dim, ES ? (N) ? 3.4 ?? cm ? 2.7 - 3.8 AP dim index ? (N) ? 2.0 ?? cm/m^2 ?? 1.5 - 2.3 Vol, ES, 2-p ? 57 ?ml ? --------- Vol/bsa, ES, 2-p ?? (N) ? 34 ?ml/m^2 ?? 16 - 34 Aortic valve ? Value ?Ref Peak v, S ?1.4 ?? m/sec ?--------- VTI, S ? 22.9 ??cm ? --------- Mean grad, S ? 3 ? mm Hg ?--------- Peak grad, S ? 8 ? mm Hg ?--------- LVOT/AV, VTI ratio ? 0.69 ? --------- ORLIN, VTI ? 2.2 ?? cm^2 ? --------- ORLIN/bsa, VTI ? 1.28 ??cm^2/m^2 --------- Mitral valve ? Value ?Ref Peak E ? 0.61 ??m/sec ?--------- Peak A ? 0.36 ??m/sec ?--------- Decel time ? 197 ?? ms ? --------- Peak E/A ratio ? 1.7 ?--------- Pulmonic valve ? Value ?Ref Peak v, S ?0.92 ??m/sec ?--------- Mean grad, S ? 2 ? mm Hg ?--------- Peak grad, S ? 3 ? mm Hg ?--------- Tricuspid valve ?Value ?Ref TR peak v ?(N) ? 1 ? m/sec ?<=2.8 Peak RV-RA grad, S ? 20 ?mm Hg ?--------- Aortic root ?Value ?Ref Root diam, S ? 2.8 ?? cm ? --------- Ascending aorta ?Value ?Ref AAo AP diam, S ? 3.1 ?? cm ? --------- AAo AP diam/bsa, S ? 1.8 ?? cm/m^2 ?? --------- -- -- Legend: (L) ??and ??(H) ??berny values outside specified reference range. (N) ??gifford values inside specified reference range. Procedure data: Procedure information: ??Transthoracic echocardiography. Scanning was performed from the parasternal, apical, and subcostal acoustic windows. Intravenous contrast (Definity) was administered. ?Transthoracic echocardiography. Complete 2D, complete spectral Doppler, and color Doppler. ??Birthdate: Patient birthdate: 1945. ??Age: ??Patient is 75yr old. ??Sex: ?? gender: female. ??Height: ??160cm. 63in. ??Weight: ??66.7kg. 146.7lb. ??Body mass index: ??26kg/m^2. ??Body surface area: ?1.7m^2. ??Study date: ??Study date: 07/01/2021. Study time: 01:48 PM. ?Prepared and Electronically Authenticated ClaraDuong blackwood Jarvis [id number] Procedure Note Duong Elizabeth MD - 07/01/2021 -- [address] [address] [email or web address] -- Transthoracic Echocardiography -- Patient: Zee Martinez Study ID: [id number] Gender: F :1945 Age: 75 Race: CAU Height 160cm Study Date:07/01/2021 Weight: 66.7kg Access. #:[id number] BP: -- -- *Referring Physician:Laura Garcia *Ordering Physician:Luara Garcia Staff Nurse Anesthetist: boatswains mate: Nurse: -- Indications: SOB / CONDE. STUDY CONCLUSIONS: SUMMARY: -- - Left ventricle: The cavity size was normal. Wall thickness wasincreased. Global systolic function was normal. The estimated ejection fractionwas 65%. Diastolic function assessment consistent with abnormal leftventricular relaxation (grade 1 diastolic dysfunction). - Aortic valve: Structurally normal valve. Trileaflet. - Mitral valve: Structurally normal valve. No significant regurgitation. - Left atrium: The atrium was normal in size. - Right ventricle: The cavity size was normal. Systolic function wasnormal. - Pulmonary arteries: The peak pressure during systole by Doppler is 25mmHg. -- Cardiac Anatomy: LEFT VENTRICLE: The cavity size was normal. Wall thickness wasincreased. Global systolic function was normal. The estimated ejection fraction was65%. Diastolic function assessment consistent with abnormal left ventricular relaxation (grade 1 diastolic dysfunction). AORTIC VALVE: Structurally normal valve. Trileaflet. Doppler: No significant regurgitation. The LVOT to aortic valve VTI ratio is 0.69.The valve area by the velocity-time integral method is 2.2cm^2. The valvearea index by the velocity-time integral method is 1.28cm^2/m^2. The ratio ofLVOT to aortic valve peak velocity is 0.6. The valve area by the peakvelocity method is 1.9cm^2. The valve area index by the peak velocity method is 1.11cm^2/m^2. The mean systolic gradient is 3mm Hg. The peak systolic gradient is 8mm Hg. AORTA: Aortic root: The aortic root was normal in size. MITRAL VALVE: Structurally normal valve. Doppler: No significant regurgitation. LEFT ATRIUM: The atrium was normal in size. RIGHT VENTRICLE: The cavity size was normal. Systolic function wasnormal. PULMONIC VALVE: Structurally normal valve. Doppler: Nosignificant regurgitation. The mean systolic gradient is 2mm Hg. The peak systolic gradient is 3mm Hg. TRICUSPID VALVE: Structurally normal valve. Doppler: Nosignificant regurgitation. RIGHT ATRIUM: The atrium was normal in size. PERICARDIUM: There was no pericardial effusion. Systemic veins: Inferior vena cava: The vessel was normal in size. Measurements -- -- Left ventricle Value Ref ROCIO, LAX (L) 3.0 cm 3.8 - 5.2 ROCIO/bsa, LAX (L) 1.8 cm/m^2 2.3 - 3.1 ROCIO, LAX chord (N) 4.5 cm 3.8 - 5.2 ESD, LAX chord (N) 3.0 cm 2.2 - 3.5 PW, ED (H) 1.0 cm 0.6 - 0.9 SV 50 ml --------- SV/bsa 29 ml/m^2 --------- EDV, 2-p (N) 92 ml 46 - 106 ESV, 2-p (N) 26 ml 14 - 42 EF, 2-p (N) 72 % 54 - 74 SV, 2-p 66 ml --------- EDV/bsa, 2-p (N) 54 ml/m^2 29 - 61 ESV/bsa, 2-p (N) 15 ml/m^2 8 - 24 SV/bsa, 2-p 38.8 ml/m^2 --------- E', lat john, TDI (L) 6.9 cm/sec >=10.0 E/e', lat john, TDI 9 --------- E', med john, TDI (L) 6.5 cm/sec >=7.0 E/e', med john, TDI 9 --------- E', avg, TDI 6.7 cm/sec --------- E/e', avg, TDI (N) 9 <=14 LVOT Value Ref Diam, S 2.0 cm --------- Area 3.1 cm^2 --------- Peak lance, S 0.84 m/sec --------- VTI, S 15.9 cm --------- Ventricular septum Value Ref IVS, ED (H) 1.1 cm 0.6 - 0.9 Right ventricle Value Ref Pressure, S 25 mm Hg --------- RVOT Value Ref Peak grad, S 1 mm Hg --------- Left atrium Value Ref AP dim, ES (N) 3.4 cm 2.7 - 3.8 AP dim index (N) 2.0 cm/m^2 1.5 - 2.3 Vol, ES, 2-p 57 ml --------- Vol/bsa, ES, 2-p (N) 34 ml/m^2 16 - 34 Aortic valve Value Ref Peak v, S 1.4 m/sec --------- VTI, S 22.9 cm --------- Mean grad, S 3 mm Hg --------- Peak grad, S 8 mm Hg --------- LVOT/AV, VTI ratio 0.69 --------- ORLIN, VTI 2.2 cm^2 --------- ORLIN/bsa, VTI 1.28 cm^2/m^2 --------- Mitral valve Value Ref Peak E 0.61 m/sec --------- Peak A 0.36 m/sec --------- Decel time 197 ms --------- Peak E/A ratio 1.7 --------- Pulmonic valve Value Ref Peak v, S 0.92 m/sec --------- Mean grad, S 2 mm Hg --------- Peak grad, S 3 mm Hg --------- Tricuspid valve Value Ref TR peak v (N) 1 m/sec <=2.8 Peak RV-RA grad, S 20 mm Hg --------- Aortic root Value Ref Root diam, S 2.8 cm --------- Ascending aorta Value Ref AAo AP diam, S 3.1 cm --------- AAo AP diam/bsa, S 1.8 cm/m^2 --------- -- -- Legend: (L) and (H) berny values outside specified reference range. (N) gifford values inside specified reference range. Procedure data: Procedure information: Transthoracic echocardiography. Scanning wasperformed from the parasternal, apical, and subcostal acoustic windows.Intravenous contrast (Definity) was administered. Transthoracicechocardiography. Complete 2D, complete spectral Doppler, and color Doppler. Birthdate: Patient birthdate: 1945. Age: Patient is 75yr old. Sex: gender: female. Height: 160cm. 63in. Weight: 66.7kg. 146.7lb. Bodymass index: 26kg/m^2. Body surface area: 1.7m^2. Study date: Studydate: 07/01/2021. Study time: 01:48 PM. Prepared and Electronically Authenticated Duong Elizabeth [id number] Laura Roberts [facility] ORDERABL ES INTERFACE SYSTEM Refer to clinic/hospital department * HM EJECTION FRACTION (07/01/2021 10:30 AM MOLD FILLING OPERATOR) Pathologist [facility] EJECTION FRACTION 64 50 - 65 % Historical Provider HEALTH MAINTENANCE * NM MYOCARD PERF IMAG SPECT MULT (07/01/2021 10:30 AM MOLD FILLING OPERATOR) 07/01/2021 10:3 1 AM MOLD FILLING OPERATOR Impressions INTERFACE SYSTEM - 07/01/2021 11:21 AM MOLD FILLING OPERATOR IMPRESSION: ?? 1) The EKG stress test is non-ischemic. 2) The overall quality of the study is good. 3) The myocardial perfusion scan is normal. ?? 4) Left ventricular size is normal with normal left ventricular systolic function, and a calculated ejection fraction of 64%. 5) ??No previous study was available for comparison. ? Recommendations: Clinical correlation ??is recommended. ? Narrative INTERFACE SYSTEM - 07/01/2021 11:21 AM MOLD FILLING OPERATOR ? Date of ??Procedure: 07/01/2021 10:30 AM ? Procedure Type: One Day Myoview Lexiscan Stress Test ? Clinical Indications:This 75 year lady with shortness of breath and nausea presents for evaluation of ischemia with a pharmacologic nuclear stress test. Medications:Diltiazem, aspirin, HCTZ, olmesartan, Eliquis Pharmacologic Stress Procedure: The patient performed a chemical stress test at rest using 0.4 mg Lexiscan IVP over 10 seconds. ??The heart rate was 64 bpm at baseline and increased to 100 bpm. ??The blood pressure was 133/63 at baseline and 135/53 during infusion, demonstrating a normal response to Lexiscan. The patient felt cough, headache during the procedure. ?? EKG: The baseline electrocardiogram showed sinus rhythm. The stress electrocardiogram showed no ischemic changes. The electrocardiogram changes show a non-ischemic response to Lexiscan. There were isolated PACs throughout the study. Nuclear Imaging Protocol: Myocardial perfusion imaging was performed at rest approximately 60 minutes following the intravenous injection of 6.591 mCi TC99m Myoview. ??During infusion, the patient was injected intravenously with 20.421 mCi TC99m Myoview. ??Gated post - stress tomographic imaging was performed approximately 60 minutes later in same manner. SPECT reconstruction was performed in the short, vertical long and horizontal axis views in both resting and gated image sets. Findings: The overall quality of the study is good. ??Rotating planar images reveal no motion artifact. ??The left ventricular size is normal. ?? There is an apical perfusion defect on the resting images which improves on the stress images with normal wall motion consistent with artifact. There is an inferior perfusion defect on the rest and stress images which improves distinctly on the prone images with normal wall motion consistent with artifact. Gated SPECT imaging demonstrates normal wall motion in all regions, and a calculated left ventricular ejection fraction estimated to be 64%. Procedure Note Berny Nolan MD - 07/01/2021 Date of Procedure: 07/01/2021 10:30 AM Procedure Type: One Day Myoview Lexiscan Stress Test Clinical Indications:This 75 year lady with shortness of breath and nausea presents for evaluation of ischemia with a pharmacologic nuclear stress test. Medications:Diltiazem, aspirin, HCTZ, olmesartan, Eliquis Pharmacologic Stress Procedure: The patient performed a chemical stress test at rest using 0.4 mg Lexiscan IVP over 10 seconds. The heart rate was 64 bpm at baseline and increased to 100 bpm. The blood pressure was 133/63 at baseline and 135/53 during infusion, demonstrating a normal response to Lexiscan. The patient felt cough, headache during the procedure. EKG: The baseline electrocardiogram showed sinus rhythm. The stress electrocardiogram showed no ischemic changes. The electrocardiogram changes show a non-ischemic response to Lexiscan. There were isolated PACs throughout the study. Nuclear Imaging Protocol: Myocardial perfusion imaging was performed at rest approximately 60 minutes following the intravenous injection of 6.591 mCi TC99m Myoview. During infusion, the patient was injected intravenously with 20.421 mCi TC99m Myoview. Gated post - stress tomographic imaging was performed approximately 60 minutes later in same manner. SPECT reconstruction was performed in the short, vertical long and horizontal axis views in both resting and gated image sets. Findings: The overall quality of the study is good. Rotating planar images reveal no motion artifact. The left ventricular size is normal. There is an apical perfusion defect on the resting images which improves on the stress images with normal wall motion consistent with artifact. There is an inferior perfusion defect on the rest and stress images which improves distinctly on the prone images with normal wall motion consistent with artifact. Gated SPECT imaging demonstrates normal wall motion in all regions, and a calculated left ventricular ejection fraction estimated to be 64%. IMPRESSION: 1) The EKG stress test is non-ischemic. 2) The overall quality of the study is good. 3) The myocardial perfusion scan is normal. 4) Left ventricular size is normal with normal left ventricular systolic function, and a calculated ejection fraction of 64%. 5) No previous study was available for comparison. Recommendations: Clinical correlation is recommended. Kitty Holman LANGUAGE THERAPIST NM ORDERABLES INTERFACE SYSTEM Refer to clinic/hospital department * NM PHARMACOLOGICAL STRESS TEST (07/01/2021 9:16 AM MOLD FILLING OPERATOR) Narrative 07/01/2021 9:16 AM MOLD FILLING OPERATOR Order information only. ??Exam was auto-finalized. ?? Kitty Holman LANGUAGE THERAPIST NM ORDERABLES * EKG 12-LEAD (07/01/2021 3:33 AM MOLD FILLING OPERATOR) 07/01/2021 3:33 AM MOLD FILLING OPERATOR Narrative INTERFACE SYSTEM - 07/01/2021 8:06 AM MOLD FILLING OPERATOR ? Stationary ECG Study ? [facility] ? Test Date: ?07/01/2021 3:33 AM Pat Name: ? ZEE MARTINEZ ? Department: ?? 38 ?Room: ? CDU10 CDU10 Gender: ? F ?Supervisor Remelt: ?? [email or web address] : ?1945 ? Requested By: JOHN MATHIAS L Order Number: [id number] ?Reading MD: ?? Fritz Reza ? Measurements Intervals ?[place] ? Rate: ? 80 ? P: ?0 NH: ? 63 ? QRS: ?18 QRSD: ? 80 ? T: ?45 QT: ? 393 ? QTc: ?454 ? Interpretive Statements ? Unknown rhythm, irregular rate, probable afib Nonspecific ST segment and T wave abnormalities Electronically Signed On 07-01-2021 8:06:30 MOLD FILLING OPERATOR by Fritz Reza Procedure Note Fritz Reza MD - 07/01/2021 Stationary ECG Study [facility] Test Date: 07/01/2021 3:33 AM Pat Name: ZEE MARTINEZ Department: 38 Room: [place] [address] Gender: F Supervisor Remelt: [id number] : 1945 Requested By: JOHN Fried Order Number: [id number] Reading MD: Fritz Reza Measurements Intervals [place] Rate: 80 P: 0 NH: 63 QRS: 18 QRSD: 80 T: 45 QT: 393 QTc: 454 Interpretive Statements Unknown rhythm, irregular rate, probable afib Nonspecific ST segment and T wave abnormalities Electronically Signed On 07-01-2021 8:06:30 MOLD FILLING OPERATOR by Fritz Reza Kitty Holman LANGUAGE THERAPIST ECG ORDERABLES Performing Organization Address City/[facility] Co de Phone Number INTERFACE SYSTEM Refer to clinic/hospital department * (ABNORMAL) TROPONIN 6 HR, 5TH GEN (06/30/2021 11:01 PM MOLD FILLING OPERATOR) TROPONIN T, 6 HR 5TH GEN 21(H) <=10 ng/L 06/30/2021 11:40 PM MOLD FILLING OPERATOR [facility] DELTA 6HR TROPONIN T 5 See Interp. 06/30/2021 11:40 PM MOLD FILLING OPERATOR [facility] Blood Venipuncture / Unknown 06/30/2021 11:01 PM MOLD FILLING OPERATOR 06/30/2021 11:09 PM MOLD FILLING OPERATOR Narrative [facility] - 06/30/2021 11:40 PM MOLD FILLING OPERATOR Troponin elevated. Delta indeterminate. Delay in collection of timed specimen beyond recommended collection interval. Results must be interpreted in clinical context. John Mathias MD CHEMISTRY ORDERAB LES Performing Organization Address City/[facility]/ZIP Co de Phone Number [facility]# [id number] [address] [place] [address] * (ABNORMAL) TROPONIN 2 HR, 5TH GEN (06/30/2021 8:11 PM MOLD FILLING OPERATOR) TROPONIN T, 2 HR 5TH GEN 15(H) <=10 ng/L 06/30/2021 8:56 PM MOLD FILLING OPERATOR [facility] DELTA 2HR TROPONIN T -1 See Interp. 06/30/2021 8:56 PM MOLD FILLING OPERATOR [facility] [place] [facility] Blood Venipuncture / Unknown 06/30/2021 8:11 PM MOLD FILLING OPERATOR 06/30/2021 8:22 PM MOLD FILLING OPERATOR Narrative [facility] - 06/30/2021 8:56 PM MOLD FILLING OPERATOR Troponin elevated. Delta not changing. Delay in collection of timed specimen beyond recommended collection interval. Results must be interpreted in clinical context. John Mathias MD CHEMISTRY ORDERAB LES Performing Organization Address [facility] Co de Phone Number [facility] [place] [facility]# [id number] [address] [place] [address] * POC US LIMITED CARDIAC (06/30/2021 5:35 PM MOLD FILLING OPERATOR) Narrative ED POC US - 06/30/2021 5:35 PM MOLD FILLING OPERATOR John Mathias MD ? 06/30/2021 ??5:36 PM POC US LIMITED CARDIAC Date/Time: 06/30/2021 5:35 PM Performed by: John Mathias MD Authorized by: John Mathias MD Exam Type: ??Diagnostic Clinical Category: ??Symptom Based Initial or Repeat Exam: ??Initial Exam Indication(s) for Exam: ??Indication for exam: ??Dyspnea Views: ??Parasternal long axis: ??Adequate ??Parasternal short axis: ??Adequate Findings: ??Pericardial effusion: ??Absent ??Global ventricular function: ??Normal Interpretation: ??Interpretation: ??Normal cardiac ultrasound Comments: ?? Normal lung slide bilaterally John Mathias MD NON LAB POC TESTS ED POC US [address] [place] [address], [place] * XR CHEST PA OR AP 1 VW (06/30/2021 4:18 PM MOLD FILLING OPERATOR) Anatomical Region Laterality Modality Chest Computed Radiogr aphy 06/30/2021 4:19 PM MOLD FILLING OPERATOR Impressions 06/30/2021 4:26 PM MOLD FILLING OPERATOR IMPRESSION: No convincing evidence of active disease. ?? DICTATION LOCATION: Location - [facility] Narrative 06/30/2021 4:26 PM MOLD FILLING OPERATOR PORTABLE AP VIEW OF THE CHEST ?? DATE: 06/30/2021 4:18 PM HISTORY: Chest Pain. COMPARISON: 09/27/2020 FINDINGS: ?? The lungs are clear. No pneumothorax. No pleural effusion. The heart size is normal. The aorta is atherosclerotic. Elevation the right hemidiaphragm is unchanged. Procedure Note Celeste Pascual MD - 06/30/2021 PORTABLE AP VIEW OF THE CHEST DATE: 06/30/2021 4:18 PM HISTORY: Chest Pain. COMPARISON: 09/27/2020 FINDINGS: The lungs are clear. No pneumothorax. No pleural effusion. The heart size is normal. The aorta is atherosclerotic. Elevation the right hemidiaphragm is unchanged. IMPRESSION: No convincing evidence of active disease. DICTATION LOCATION: Location 1 - [facility] John Mathias MD DIAGNOSTIC IMAGIN G ORDERABLES * (ABNORMAL) MANUAL DIFFERENTIAL (06/30/2021 4:04 PM MOLD FILLING OPERATOR) SEGMENTED NEUTROPHILS 55 % 06/30/2021 5:17 PM MOLD FILLING OPERATOR [facility] LYMPHOCYTES RELATIVE 16(L) 43 - 53 % 06/30/2021 5:17 PM MOLD FILLING OPERATOR [facility] ATYPICAL LYMPHOCYTES RELATIVE 10(H) 0 - 5 % 06/30/2021 5:17 PM [facility] MONOCYTES RELATIVE 17 % 06/30/2021 5:17 PM [facility] METAMYELOCYTES RELATIVE 1(H) <=0 % 06/30/2021 5:17 PM [facility] MYELOCYTES - REL (DIFF) 2(H) <=0 % 06/30/2021 5:17 PM [facility] NEUTROPHILS ABSOLUTE COUNT 3.61 1.90 - 7.00 K/uL 06/30/2021 5:17 PM [facility] LYMPHOCYTES ABSOLUTE 1.04 0.70 - 4.50 K/uL 06/30/2021 5:17 PM [facility] MONOCYTES ABSOLUTE 1.10 0.10 - 1.30 K/uL 06/30/2021 5:17 PM [facility] TOTAL CELLS COUNTED IN DIFF 108 06/30/2021 5:17 PM [facility] RBC MORPHOLOGY Normal 06/30/2021 5:17 PM [facility] PLATELET EST. Consistent w Count 06/30/2021 5:17 PM [facility] Blood Venipuncture / Unknown 06/30/2021 4:04 PM MOLD FILLING OPERATOR 06/30/2021 4:30 PM [facility] John Mathias MD HEMATOLOGY ORDERA BLES COM [facility]# [id number] [address] [place] [address] * (ABNORMAL) BRAIN NATRIURETIC PEPTIDE, BNP OR PROBNP (06/30/2021 4:04 PM MOLD FILLING OPERATOR) PROBNP, N TERMINAL 1,132(H) <449 pg/mL 06/30/2021 5:06 PM [facility] Comment: Reference values for screening purposes based on dye beck reel operator's recommendation: Patients less than 75 years: <125 pg/mL Patients 75 years and older: <450 pg/mL Reference values for determination of acute congestive heart failure in dyspneic patients based on PRIDE study (Am J Cardiol 2005;95:948): Patients less than 50 years: <450 pg/mL (Negative predictive value= 99%) Patients 50 years and older: <900 pg/mL (Negative predictive value= 92%) Rule out cutpoint, all ages: <300 pg/mL (Negative predictive value= 99%) Blood Venipuncture / Unknown 06/30/2021 4:04 PM MOLD FILLING OPERATOR 06/30/2021 4:30 PM MOLD FILLING OPERATOR John Mathias MD CHEMISTRY ORDERAB LES Performing Organization Address [facility]/ZIP Co de Phone Number [facility] [place] [facility] CLIA# [id number] [address] [place] [address] * (ABNORMAL) TROPONIN BASELINE, 5TH GEN (06/30/2021 4:04 PM MOLD FILLING OPERATOR) TROPONIN T, BASELINE 5TH GEN 16(H) <=10 ng/L 06/30/2021 5:06 PM MOLD FILLING OPERATOR [employer] [facility] Comment:Hemolysis can falsel y decrease Troponin quantitation. Blood Venipuncture / Unknown 06/30/2021 4:04 PM MOLD FILLING OPERATOR 06/30/2021 4:30 PM MOLD FILLING OPERATOR Narrative [facility] - 06/30/2021 5:06 PM MOLD FILLING OPERATOR Troponin elevated. John Mathias MD CHEMISTRY ORDERAB LES Performing Organization Address [facility] Co de Phone Number [employer] [place] [facility] CLIA# [id number] [address] [place] [address] * (ABNORMAL) COMPREHENSIVE METABOLIC PANEL (06/30/2021 4:04 PM MOLD FILLING OPERATOR) SODIUM 137 136 - 145 mmol/L 06/30/2021 5:08 PM MOLD FILLING OPERATOR [facility] POTASSIUM 4.1 3.5 - 5.0 mmol/L 06/30/2021 5:08 PM MOLD FILLING OPERATOR [facility] Comment:Moderate hemolysis p resent. Can cause significant falsely elevated result. Redraw if indicated. CHLORIDE 98 98 - 107 mmol/L 06/30/2021 5:08 PM [facility] CO2 23 22 - 29 mmol/L 06/30/2021 5:08 PM [facility] CALCIUM 10.2 8.6 - 10.2 mg/dL 06/30/2021 5:08 PM [facility] BUN 26(H) 8 - 23 mg/dL 06/30/2021 5:08 PM [facility] CREATININE 1.28(H) 0.51 - 0.95 mg/dL 06/30/2021 5:08 PM [facility] Comment:The GFR result is no t clinically significant on patients <18 or >70 years of age. GLUCOSE 108(H) 74 - 99 mg/dL 06/30/2021 5:08 PM [facility] TOTAL PROTEIN 7.9 6.7 - 8.6 g/dL 06/30/2021 5:08 PM [facility] ALBUMIN 4.2 3.5 - 5.2 g/dL 06/30/2021 5:08 PM [facility] BILIRUBIN TOTAL 0.4 0.2 - 1.1 mg/dL 06/30/2021 5:08 PM [facility] ALKALINE PHOSPHATASE 94 35 - 104 U/L 06/30/2021 5:08 PM [facility] AST 24 <33 U/L 06/30/2021 5:08 PM [facility] Comment:Hemolysis present. R esult may be falsely elevated. ALT 9 <34 U/L 06/30/2021 5:08 PM [facility] Comment:Hemolysis present. R esult may be falsely elevated. GFR 41 mL/min/1.7 3 sq meter 06/30/2021 5:08 PM [facility] Comment: eGFR has not been validated for use in the elderly (> 70 years of age), women, patients with serious co-morbid conditions, or persons with extremes of body size or muscle mass and should also be interpreted with caution in patients with acute kidney failure, dialysis dependent patients, patients reporting exceptional dietary intake (e.g. vegetarian diet, high protein diets, creatine supplementation), and patients with severe liver disease. Based on National Kidney Disease Education Program If patient is , please refer to the GFR result. GFR, 49 mL/min/1.7 3 sq meter 06/30/2021 5:08 PM [facility] [employer] [facility] ANION GAP 16 8 - 16 mmol/L 06/30/2021 5:08 PM [facility] [facility] Blood Venipuncture / Unknown 06/30/2021 4:04 PM MOLD FILLING OPERATOR 06/30/2021 4:30 PM [facility] [facility] - 06/30/2021 5:08 PM [facility] Samples containing indocyanine green cause interferences on Total and/or Direct Bilirubin and must not be measured. John Mathias MD CHEMISTRY ORDERAB LES [facility] [employer] [facility]# [id number] [address] [facility] [place] [address] * (ABNORMAL) CBC WITH DIFFERENTIAL (06/30/2021 4:04 PM MOLD FILLING OPERATOR) WBC 6.6 4.0 - 9.8 K/uL 06/30/2021 4:38 PM [facility] [facility] RBC 3.58(L) 3.90 - 4.90 M/uL 06/30/2021 4:38 PM [facility] [facility] HEMOGLOBIN 10.1(L) 11.8 - 14.8 g/dL 06/30/2021 4:38 PM [facility] [facility] HEMATOCRIT 31.3(L) 35.5 - 44.0 % 06/30/2021 4:38 PM [facility] [facility] MCV 87.4 82.0 - 99.0 fL 06/30/2021 4:38 PM [facility] MCH 28.2 27.2 - 32.6 pg 06/30/2021 4:38 PM MOLD FILLING OPERATOR [facility] MCHC 32.3 31.5 - 35.5 g/dL 06/30/2021 4:38 PM MOLD FILLING OPERATOR [facility] RDW 12.8 11.5 - 14.5 % 06/30/2021 4:38 PM MOLD FILLING OPERATOR [facility] RDW-STDEV 40.9 37.1 - 48.7 fL 06/30/2021 4:38 PM MOLD FILLING OPERATOR [facility] PLATELETS 245 140 - 350 K/uL 06/30/2021 4:38 PM [facility] MPV 11.2 9.3 - 12.4 fL 06/30/2021 4:38 PM MOLD FILLING OPERATOR [facility] Blood Venipuncture / Unknown 06/30/2021 4:04 PM MOLD FILLING OPERATOR 06/30/2021 4:30 PM MOLD FILLING OPERATOR John Mathias MD HEMATOLOGY [facility] Organization Address [facility]/State/[facility] Co de Phone Number [facility]# [id number] [address] [place] [address] * EKG 12-LEAD (06/30/2021 3:05 PM MOLD FILLING OPERATOR) 06/30/2021 3:05 PM MOLD FILLING OPERATOR Narrative INTERFACE SYSTEM - 06/30/2021 3:07 PM MOLD FILLING OPERATOR ? Stationary ECG Study ? [facility] ? Test Date: ?06/30/2021 3:05 PM Pat Name: ? ZEE MARTINEZ ? Department: ?? 38 ?Room: ? Gender: ? F ?Supervisor Remelt: ?? taylkd : ?1945 ? Requested By: ? Order Number: [id number] ?Reading MD: ?? Deryk Bryan ? Measurements Intervals ?[place] ? Rate: ? 55 ? P: ? [place]: ?QRS: ?31 QRSD: ? 77 ? T: ?33 QT: ? 422 ? QTc: ?404 ? Interpretive Statements ? Atrial fibrillation Nonspecific ST-T abnormalities Electronically Signed On 06-30-2021 15:07:44 MOLD FILLING OPERATOR by Jovana Bryan Procedure Note Jovana Bryan MD - 06/30/2021 Stationary ECG Study [facility] Test Date: 06/30/2021 3:05 PM Pat Name: ZEE MARTINEZ Department: 38 Room: Gender: F Supervisor Remelt: yoni : 1945 Requested By: Order Number: [id number] Reading MD: Jovana Bryan Measurements Intervals [place] Rate: 55 P: [place]: QRS: 31 QRSD: 77 T: 33 QT: 422 QTc: 404 Interpretive Statements Atrial fibrillation Nonspecific ST-T abnormalities Electronically Signed On 06-30-2021 15:07:44 MOLD FILLING OPERATOR by Jovana Bryan John Mathias MD ECG ORDERABLES Performing Organization Address City/State/[facility] Co de Phone Number INTERFACE SYSTEM Refer to clinic/hospital department documented in this encounter Visit Diagnoses Diagnosis Exertional shortness of breath- Primary Shortness of breath Atrial fibrillation, unspecified type Atrial fibrillation Paroxysmal atrial fibrillation- Primary Atrial fibrillation Paroxysmal A-fib Atrial fibrillation Paroxysmal A-fib Atrial fibrillation documented in this encounter Administered Medications Inactive Administered Medications - up to 3 most recent administrations Medication Order MAR Action Action Date Dose Rate Site aluminum - magnesium - simethicone (MYLANTA) 200-200-20 mg/5 mL oral suspension 20 mL 20 mL, Oral, ONE TIME ONLY, 1 dose, On Sun07/01/21 at 1100, Routine Given 07/01/2021 11:02 AM MOLD FILLING OPERATOR 20 mL aminophylline 250 mg/10 mL injection 100 mg 100 mg, IV, INTRA-PROCEDURE ONCE, 1 dose, Starting on Sun07/01/21 at 0913, Until Sun07/01/21 at 0915, Routine Given 07/01/2021 9:15 AM MOLD FILLING OPERATOR 100 mg apixaban (ELIQUIS) tablet 5 mg 5 mg, Oral, TWO TIMES DAILY, First dose on Sun06/30/21 at 2100, Until Discontinued, Routine, Previous Med: apixaban (Eliquis) 5 mg tablet - Orig Sig - Take 1 Tablet (5 mg) by mouth 2 times daily. , Indication: Non-valvular A Fib Given 07/01/2021 11:03 AM MOLD FILLING OPERATOR 5 mg Given 06/30/2021 10:56 PM MOLD FILLING OPERATOR 5 mg aspirin (ECOTRIN EC) tablet 81 mg 81 mg, Oral, DAILY, First dose on Sun07/01/21 at 0900, Until Discontinued, Routine, Previous Med: aspirin (ECOTRIN EC) 81 mg Tablet, Delayed Release (E.C.) - Orig Sig - Take 81 mg by mouth daily. Given 07/01/2021 11:02 AM MOLD FILLING OPERATOR 81 mg diltiaZEM (CARDIZEM CD) SR 24 hour capsule 120 mg 120 mg, Oral, DAILY, First dose on Sun07/01/21 at 0900, Until Discontinued, Routine Given 07/01/2021 11:03 AM MOLD FILLING OPERATOR 120 mg famotidine PF (PEPCID) 20 mg/2 mL injection 20 mg 20 mg, IV, ONE TIME ONLY, 1 dose, On Sun07/01/21 at 1100, Routine Given 07/01/2021 11:00 AM MOLD FILLING OPERATOR 20 mg hydroCHLOROthiazide tablet 25 mg 25 mg, Oral, DAILY, First dose on Sun07/01/21 at 0900, Until Discontinued, Routine Given 07/01/2021 11:02 AM MOLD FILLING OPERATOR 25 mg lidocaine (XYLOCAINE) 2 % viscous oral solution 10 mL 10 mL, Oral, ONE TIME ONLY, 1 dose, On Sun07/01/21 at 1100, Routine Given 07/01/2021 11:02 AM MOLD FILLING OPERATOR 10 mL olmesartan (BENICAR) tablet 40 mg 40 mg, Oral, DAILY AT BEDTIME, First dose on Sun06/30/21 at 2100, Until Discontinued, Routine, Previous Med: olmesartan (BENICAR) 40 mg tablet - Orig Sig - Take 40 mg by mouth daily. Medication bottle is Olmesartan Medoxomil 40 MG tab1 tab by mouth daily Given 06/30/2021 10:56 PM MOLD FILLING OPERATOR 40 mg perflutren lipid microspheres (DEFINITY) 1.1 mg/mL injection 2 mL 2 mL, IV, INTRA-PROCEDURE ONCE, 1 dose, Starting on Sun07/01/21 at 1445, Until Sun07/01/21 at 1445, Routine Contrast Given 07/01/2021 2:45 PM MOLD FILLING OPERATOR 2 mL regadenoson (LEXISCAN) 0.4 mg/5 mL injection 0.4 mg, IV, INTRA-PROCEDURE ONCE, 1 dose, Starting on Sun07/01/21 at 0846, Until Sun07/01/21 at 0910, Routine Given 07/01/2021 9:10 AM MOLD FILLING OPERATOR 0.4 mg sodium chloride flush injection 10 mL 10 mL, IV, ONE TIME ONLY, 1 dose, On Sun07/01/21 at 0800, Routine Given 07/01/2021 7:39 AM MOLD FILLING OPERATOR 10 mL documented in this encounter Active and Recently Administered Medications Times are shown in MOLD FILLING OPERATOR. Scheduled Medication Order 06/29/2021 06/30/2021 07/01/2021 aluminum - magnesium - simethicone (MYLANTA) 200-200-20 mg/5 mL oral suspension 20 mL (COMPLETED)(Linked Group 1) 20 mL, Oral, ONE TIME ONLY, 1 dose, On Sun07/01/21 at 1100, Routine 1102 (Given - Provid er: Sondra Rachel RN) aminophylline 250 mg/10 mL injection 100 mg (COMPLETED) 100 mg, IV, INTRA-PROCEDURE ONCE, 1 dose, Starting on Sun07/01/21 at 0913, Until Sun07/01/21 at 0915, Routine 0915 (Given - Provid er: Nerissa Rodrigues RN) apixaban (ELIQUIS) tablet 5 mg 5 mg, Oral, TWO TIMES DAILY, First dose on Nadine 06/30/21 at 2100, Until Discontinued, Routine, Previous Med: apixaban (Eliquis) 5 mg tablet - Orig Sig - Take 1 Tablet (5 mg) by mouth 2 times daily. , Indication: Non-valvular A Fib 2256 (Given - Provider: Gary Walter RN) 1103 (Given - Provider: Sondra Rachel RN) aspirin (ECOTRIN EC) tablet 81 mg 81 mg, Oral, DAILY, First dose on Sun07/01/21 at 0900, Until Discontinued, Routine, Previous Med: aspirin (ECOTRIN EC) 81 mg Tablet, Delayed Release (E.C.) - Orig Sig - Take 81 mg by mouth daily. 1102 (Given - Provid er: Sondra Rachel RN) diltiaZEM (CARDIZEM CD) SR 24 hour capsule 120 mg 120 mg, Oral, DAILY, First dose on Sun07/01/21 at 0900, Until Discontinued, Routine 1103 (Given - Provid er: Sondra Rachel RN) famotidine PF (PEPCID) 20 mg/2 mL injection 20 mg (COMPLETED) 20 mg, IV, ONE TIME ONLY, 1 dose, On Sun07/01/21 at 1100, Routine 1100 (Given - Provid er: Sondra Rachel RN) hydroCHLOROthiazide tablet 25 mg 25 mg, Oral, DAILY, First dose on Sun07/01/21 at 0900, Until Discontinued, Routine 1102 (Given - Provid er: Sondra Rachel RN) lidocaine (XYLOCAINE) 2 % viscous oral solution 10 mL (COMPLETED)(Linked Group 1) 10 mL, Oral, ONE TIME ONLY, 1 dose, On Sun07/01/21 at 1100, Routine 1102 (Given - Provid er: Sondra Rachel RN) olmesartan (BENICAR) tablet 40 mg 40 mg, Oral, DAILY AT BEDTIME, First dose on Sun06/30/21 at 2100, Until Discontinued, Routine, Previous Med: olmesartan (BENICAR) 40 mg tablet - Orig Sig - Take 40 mg by mouth daily. Medication bottle is Olmesartan Medoxomil 40 MG tab1 tab by mouth daily 2256 (Given - Provider: Gary Walter RN) perflutren lipid microspheres (DEFINITY) 1.1 mg/mL injection 2 mL (COMPLETED) 2 mL, IV, INTRA-PROCEDURE ONCE, 1 dose, Starting on Sun07/01/21 at 1445, Until Sun07/01/21 at 1445, Routine 1445 (Contrast Given - Provider: Lily Siddiqi RDMS - Comment: Diluted bolus was well tolerated.) regadenoson (LEXISCAN) 0.4 mg/5 mL injection (COMPLETED) 0.4 mg, IV, INTRA-PROCEDURE ONCE, 1 dose, Starting on Sun07/01/21 at 0846, Until Sun07/01/21 at 0910, Routine 0910 (Given - Provid er: Nerissa Rodrigues RN) sodium chloride flush injection 10 mL (COMPLETED) 10 mL, IV, ONE TIME ONLY, 1 dose, On Sun07/01/21 at 0800, Routine 0739 (Given - Provid er: LORETTA Hopkins) Linked Groups Order Group 1: aluminum - magnesium - simethicone (MYLANTA) 200-200-20 mg/5 mL oral suspension 20 mL (COMPLETED)Jump to med 20 mL, Oral, ONE TIME ONLY, 1 dose, On Sun07/01/21 at 1100, Routine And lidocaine (XYLOCAINE) 2 % viscous oral solution 10 mL (COMPLETED)Jump to med 10 mL, Oral, ONE TIME ONLY, 1 dose, On Sun07/01/21 at 1100, Routine documented in this encounter Care Teams Rehab Assistant Relationship Specialty Start Date End Date Aliza Bain MD [address] [place] [address] PCP - General Family Practice 07/29/20 11/21/21 documented as of this encounter
--- OUTSIDE RECORDS SUMMARY | 2024-07-01 00:43 | XMS_ITS | Encounter Summary ---
Author Organization [facility] Address [address] [facility] Attn: Epic Prelude ADT STU POLK [address] Care Team Providers Care Miner Helper Name Role Phone Aliza Bain MD Primary Care Provider Encounter Details Date Type Department Care Team (Latest Contact Info) Description 08/09/2021 Travel Social History Tobacco Use Types Packs/Day [...] any clubs o r organizations such as hindu groups, unions, fraternal or athletic groups, or [...] COVID-19? No / Unsure 08/09/2021 11:47 AM FARM MECHANIC APPRENTICE documented as of this encounter Plan of Treatment Upcoming Encounters Date Type Department Care Team (Late st Contact Info) Description 2024 11:00 AM FARM MECHANIC APPRENTICE Appointment [facility] Manjit [address] [place] [address] 07/21/2024 9:45 AM FARM MECHANIC APPRENTICE Appointment [facility] [employer] Shuttle Driver [address] [place] [phone] Kiel Vasquez MD [address] [facility] [address] [place] [address] 07/21/2024 9:53 AM FARM MECHANIC APPRENTICE Hospital Encounter [facility] [employer] [address] [place] [address] Kiel Vasquez MD [address] [facility] 2014 [place] [address] Jesse Lackey-shirley 07/21/2024 9:53 AM FARM MECHANIC APPRENTICE - 07/21/2024 11:46 AM FARM MECHANIC APPRENTICE Surgery [facility] [employer] Driver [address] [place] [address] Kiel Vasquez MD [address] [place] [address] 2014 [place] [address] Left atrial appendage closure percutaneous 07/28/2024 8:30 AM FARM MECHANIC APPRENTICE Office Visit [facility] Oncology and Hematology - [place] [address] [facility] 200 [place] [phone] Nahid Hickman MD [address] [facility] [address] [place] [address] 09/09/2024 1:00 PM CDT Office Visit [facility] Heart and Vascular At [address] 2014 [place] [address] Kiel Vasquez MD [address] [place] [address] 2014 [place] [address] 12/16/2024 11:00 AM CDT Office [facility] HEART AND VASCULAR EP AT [address] [place] [address] Demetrius Bowling DNP [address] [place] [address] 2014 [place] [address] 02/05/2025 10:45 AM CDT Telephone Check Up [facility] Heart and Vascular At [address] [place] [address] 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 FNP [address] [place] [phone] documented as of this encounter Visit Diagnoses Not on filedocumented in this encounter Care Teams Miner Helper Relationship Specialty Start Date End Date Aliza Bain MD [address] [place] [address] PCP - General Family Practice 07/29/20 11/21/21 documented as of this encounter
--- OUTSIDE RECORDS SUMMARY | 2024-07-01 00:43 | XMS_ITS | Encounter Summary ---
Author Organization [facility] Address [address] [place] [address] Care Team Providers Care Trial Consultant Name Role Phone Aliza Bain MD Primary Care Provider Encounter Details Date Type Department Care Team (Late st Contact Info) Description 10/27/2021 Abstract [facility] Oncology and Hematology - [place] [address] [place] [address] Keiry Vincent Social History Tobacco [...] st Contact Info) Description 2024 11:00 AM LIGHTING EQUIPMENT OPERATOR Appointment [facility] [address] [place] [phone] 07/21/2024 9:45 AM LIGHTING EQUIPMENT OPERATOR Appointment [facility] [address] [place] [address] Kiel Vasquez MD [address] [facility] 2014 [place] [phone] 07/21/2024 9:53 AM LIGHTING EQUIPMENT OPERATOR Hospital Encounter [facility] [address] [place] [phone] Kiel Vasquez MD [address] [facility] 2014 [place] [address] Jesse Lackey-fib 07/21/2024 9:53 AM LIGHTING EQUIPMENT OPERATOR - 07/21/2024 11:46 AM LIGHTING EQUIPMENT OPERATOR Surgery [facility] [address] [place] [address] Kiel Vasquez MD [address] [place] [address] 2014 [place] [address] Left atrial appendage closure percutaneous 07/28/2024 8:30 AM LIGHTING EQUIPMENT OPERATOR Office Visit [facility] Oncology and Hematology - [place] [address] [facility] 200 [place] [phone] Nahid Hickman MD [address] [facility] [address] [place] [address] 09/09/2024 1:00 PM CDT Office Visit [facility] Heart and Vascular At [address] 2014 [place] [address] Kiel Vasquez MD [address] [place] [address] 2014 [place] [address] 12/16/2024 11:00 AM CDT Office Visit [facility] HEART AND VASCULAR EP AT [address] [place] [address] Demetrius Bowling DNP [address] [place] [address] 2014 [place] [address] 02/05/2025 10:45 AM CDT Telephone Check Up [facility] Heart and Vascular At [address] [place] [address] 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 FNP [address] [place] [phone] documented as of this encounter Visit Diagnoses Not on filedocumented in this encounter Care Teams Trial Consultant Relationship Specialty Start Date End Date Aliza Bain MD [address] [place] [phone] PCP - General Family Practice 07/29/20 11/21/21 documented as of this encounter
--- OUTSIDE RECORDS SUMMARY | 2024-07-01 00:43 | XMS_ITS | Encounter Summary ---
Author Organization [facility] Address [address] [place] [address] Care Team Providers Care Bar Captain Name Role Phone Aliza Bain MD Primary Care Provider Reason for Visit * Reason Onset Date Comments medication clearance 09/07/2021 Encounter Details Date Type Department Care Team (Late st Contact Info) Description 09/07/2021 Telephone [facility] Heart and Vascular At [place] [address] [address] [facility] [address] [place] [address] Kiel Vasquez MD [address] [place] [address] 2014 [place] [address] medication clearance Social History Tobacco Use Types Packs/Day Years [...] any clubs o r organizations such as nondenominational groups, unions, fraternal or athletic groups, or [...] COVID-19? No / Unsure 08/16/2021 5:34 AM CLAY DIGGER documented as of this encounter Miscellaneous Notes * Telephone Encounter - Moni Curry RN - 09/07/2021 2:08 PM CDT Spoke with patient about recommendations. Patient verbalized understanding. Patient given phone number incase a clearance letter is needed. * Telephone Encounter - Moni Curry RN - 09/07/2021 1:56 PM CDT Images from the original note were not included. Kiel Vasquez MD Elder, Megan M RN Caller: Unspecified (Today, 10:28 AM) Ok to hold eliquis 48hrs prior to procedure, resume after when deemed safe by GI doc JG * Telephone Encounter - Gabby Mueller - 09/07/2021 10:29 AM CDT The patient states she is scheduled for a colonoscopy on 09/29 and they would like for her to stop taking her eliquis a few days prior. The patient would like to know does approve. Pleasecall the patient at [phone]. Thank you. documented in this encounter Plan of Treatment Upcoming Encounters Date Type Department Care Team (Late st Contact Info) Description 2024 11:00 AM CLAY DIGGER Appointment [facility] [address] [place] [address] 07/21/2024 9:45 AM CLAY DIGGER Appointment [facility] Special Education Instructor [address] [place] [address] Kiel Vasquez MD [address] [facility] 2014 [place] [address] 07/21/2024 9:53 AM CLAY DIGGER Hospital Encounter [facility] Special Education Instructor [address] [place] [address] Kiel Vasquez MD [address] [facility] 2014 [place] [address] Paroxysmal A-fib 07/21/2024 9:53 AM CLAY DIGGER - 07/21/2024 11:46 AM CLAY DIGGER Surgery [facility] Special Education Instructor [address] [place] [address] Kiel Vasquez MD [address] [facility] 2014 [place] [address] Left atrial appendage closure percutaneous 07/28/2024 8:30 AM CLAY DIGGER Office Visit [facility] Oncology and Hematology - [place] [address] [facility] [address] [place] [address] Nahid Hickman MD [address] [facility] [address] [place] [address] 09/09/2024 1:00 PM CDT Office Visit [facility] Heart and Vascular At [address] 2014 [place] [address] Kiel Vasquez MD [address] [place] [address] 2014 [place] [address] 12/16/2024 11:00 AM CDT Office Visit [facility] HEART AND VASCULAR EP AT [address] [place] [address] Demetrius Bowling DNP [address] [place] [address] 2014 [place] [address] 02/05/2025 10:45 AM CDT Telephone Check Up [facility] Heart and Vascular At [address] [place] [address] 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, PRODUCT MGR [facility] [place] [address] documented as of this encounter Visit Diagnoses Not on filedocumented in this encounter Care Teams Bar Captain Relationship Specialty Start Date End Date Aliza Bain MD [address] [place] [address] PCP - General Family Practice 07/29/20 11/21/21 documented as of this encounter
--- OUTSIDE RECORDS SUMMARY | 2024-07-01 00:43 | XMS_ITS | Encounter Summary ---
Author Organization [facility] Address [address] [place] [address] Care Team Providers Care Fish Frog Or Oyster Farmer Name Role Phone Aliza Bain MD Primary Care Provider Reason for Referral * Radiology Services (Routine) - Closed Specialty Diagnoses / Procedures Referred By Contac t Referred To Contact Cardiology Diagnoses Paroxysmal atrial fibrillation Procedures ECHO TRANSESOPHAGEAL W DOPPLER AND COLOR FLOW [place] DOPPLER ECHO HEART,COMPLETE [place] ECHO TRANSESOPHAG R-T 2D W/PRB IMG ACQUISJ I&R [place] DOPPLER COLOR FLOW VELOCITY MAP Melita Woods MD NO ADDRESS ON FILE [facility] Electrophysiology [address] [place] [phone] Referral ID Status Reason Start Date Expiration Date Visits Re quested Visits Authorized [id number] Closed 07/20/2021 08/20/2022 1 1 DATABASE ADMINISTRATOR Reason for Visit * Reason Onset Date Comments Scheduling ablation 07/20/2021 Encounter Details Date Type Department Care Team (Late st Contact Info) Description 07/20/2021 Telephone [facility] At [address] [place] [address] Melita Woods MD NO ADDRESS ON FILE Scheduling ablation Social History Tobacco Use Types Packs/Day Years [...] any clubs o r organizations such as mormonism groups, unions, fraternal or athletic groups, or [...] COVID-19? Unable to assess 07/01/2021 11:19 AM SQL DATABASE ADMINISTRATOR documented as of this encounter Miscellaneous Notes * Telephone Encounter - Renetta John RN - 07/20/2021 4:04 PM SQL DATABASE ADMINISTRATOR Pt is scheduled for Afib ablation on 08/16 at 7:30 AM. Covid test scheduled for 08/12 at 2:00pm. Instructions sent to pt via email as requested. You are scheduled for an afib ablation on August 16. Please arrive in Admitting, located on the 2nd floor of the [facility], at 5:30 AM. You may bring one visitor in with you. We ask that everyone wear a mask. You will need to have nothing by mouth after midnight on the evening of August 15. Thisincludes all forms of tobacco products, gum, and mints. You may take morning medications with a sipof water. Please remember that your last dose of Eliquis should be taken on Sunday morning 08/15, hold evening dose and dose morning of procedure. Your Covid test is scheduled for July 20, at 2:05 PM. Testing is located on the lower level of the [place] [facility]. We will only call you with results if the test is positive. Please do not hesitate to contact me with any questions or concerns. I can be reached Sunday-Sundayat [phone]. DATABASE ADMINISTRATOR documented in this encounter Plan of Treatment Upcoming Encounters Date Type Department Care Team (Late st Contact Info) Description 2024 11:00 AM SQL DATABASE ADMINISTRATOR Appointment [facility] Manjit [address] [place] [address] 07/21/2024 9:45 AM SQL DATABASE ADMINISTRATOR Appointment [facility] Table Hand [address] [place] [address] Kiel Vasquez MD [address] [place] [address] 07/21/2024 9:53 AM SQL DATABASE ADMINISTRATOR Hospital Encounter [facility] [address] [place] [address] Kiel Vasquez MD [address] [place] [address] Paroxysmal A-fib 07/21/2024 9:53 AM SQL DATABASE ADMINISTRATOR - 07/21/2024 11:46 AM SQL DATABASE ADMINISTRATOR Surgery [facility] Table Hand [facility] [place] [address] Kiel Vasquez MD [address] [place] [address] [address] [place] [address] Left atrial appendage closure percutaneous 07/28/2024 8:30 AM SQL DATABASE ADMINISTRATOR Office Visit [facility] Oncology and Hematology - [place] [address] [facility] [address] [place] [address] Nahid Hickman MD [address] [facility] [address] [place] [address] 09/09/2024 1:00 PM CDT Office Visit [facility] At [address] [place] [address] Kiel Vasquez MD [facility] S [facility] [address] [place] [phone] 12/16/2024 11:00 AM CDT Office Visit [facility] HEART AND VASCULAR EP AT [address] [place] [address] Demetrius Bowling DNP [address] [place] [address] [address] [place] [address] 02/05/2025 10:45 AM CDT Telephone Check Up [facility] At [address] [place] [address] 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 FNP [facility] [place] [phone] documented as of this encounter Results * ECHO TRANSESOPHAGEAL W DOPPLER AND COLOR FLOW (08/16/2021 8:54 AM SQL DATABASE ADMINISTRATOR) Narrative 08/16/2021 8:56 AM SQL DATABASE ADMINISTRATOR Order information only. ??Exam was auto-finalized. ?? Melita Woods MD US ORDERABLES * 2019 NOVEL CORONAVIRUS (COVID-19) PCR DETECTION (08/12/2021 1:58 PM SQL DATABASE ADMINISTRATOR) COVID-19 PCR NOT DETECTED Not Detected 08/12/19 11:43 PM SQL DATABASE ADMINISTRATOR [facility] PERFORMING LAB [facility] 08/12/2021 11:43 PM SQL DATABASE ADMINISTRATOR [facility] Upper Respiratory ENTIRE NASOPHARYNX / Unknown Collection / Unknown 08/12/2021 1:58 PM SQL DATABASE ADMINISTRATOR 08/12/2021 4:55 PM SQL DATABASE ADMINISTRATOR Narrative [facility] - 08/12/2021 11:43 PM SQL DATABASE ADMINISTRATOR This test has been authorized by the [...] 2019-Novel Coronavirus. Melita Woods MD MICROBIOLOGY - [facility] ORDERABLES [facility]# [id number] [address] [facility] [place] [address] documented in this encounter Visit Diagnoses Diagnosis Preop testing- Primary Preoperative examination, unspecified Paroxysmal atrial fibrillation Atrial fibrillation Paroxysmal atrial fibrillation- Primary Atrial fibrillation Paroxysmal A-fib Atrial fibrillation Paroxysmal A-fib Atrial fibrillation documented in this encounter Care Teams Fish Frog Or Oyster Farmer Relationship Specialty Start Date End Date Aliza Bain MD [address] [place] [address] PCP - General Family Practice 07/29/20 11/21/21 documented as of this encounter
--- OUTSIDE RECORDS SUMMARY | 2024-07-01 00:43 | XMS_ITS | Encounter Summary ---
Author Organization [facility] Address [address] [place] [address] Care Team Providers Care Counter Stacker Name Role Phone Aliza Bain MD Primary Care Provider Reason for Visit * Reason Onset Date Comments Low Blood Pressure 08/23/2021 Encounter Details Date Type Department Care Team (Late st Contact Info) Description 08/23/2021 Telephone [facility] Heart and Vascular At [address] [place] [address] Melita Woods MD NO ADDRESS ON FILE Low Blood Pressure Social History Tobacco Use Types [...] any clubs o r organizations such as anabaptist groups, unions, fraternal or athletic groups, or [...] AM CDT documented as of this encounter Miscellaneous Notes * Telephone Encounter - Renetta John RN - 08/23/2021 3:35 PM DOOR INSTALLER Called Cassandra back to check on her. She states she has been resting and increasing fluid intake and is feeling better. She said she will cont to monitor her symptoms and will go to the ED if they worsen, but right now feeling better. Instructed to check BP again tonight before taking medications and hold benicar if BP low <100/- Instructed Cassandra to call back tomorrow and let us know how she is feeling. Discussed with Jaya ALMONTE and agreed with recommendations. INSTALLER * Telephone Encounter - Renetta John RN - 08/23/2021 2:46 PM DOOR INSTALLER Spoke with Cassandra, she felt pretty good this am, but then took shower around 11:30 and felt dizzy, SOB, upset stomach, 86/61, HR 110 at that time. Rechecked at 1:00 pm BP 108/68, HR 117. Still feels SOB. Head feels foggy or dizzy. Instructed to rest, elevate legs, increase fluid intake. Call back if increased symptoms or symptoms do not resolve. INSTALLER * Telephone Encounter - Ashley Styles - 08/23/2021 2:03 PM CST Patient called stating after her ablation she is very tired, dizzy, sick to her stomach. Her blood pressures have been all over. On 08/19 it was 158/68 hr 126. On 08/21 it was 101/60 hr 110 and today it was 86/61 hr 96. Please call patient back at [phone] to advise. Thank you. INSTALLER documented in this encounter Plan of Treatment Upcoming Encounters Date Type Department Care Team (Late st Contact Info) Description 2024 11:00 AM DOOR INSTALLER Appointment [facility] [address] [place] [address] 07/21/2024 9:45 AM DOOR INSTALLER Appointment [facility] Draw Fire Operator [address] [place] [address] Kiel Vasquez MD [address] [place] [address] 07/21/2024 9:53 AM DOOR INSTALLER Hospital Encounter [facility] Draw Fire Operator [address] [place] [address] Kiel Vasquez MD [address] [place] [address] Paroxysmal A-fib 07/21/2024 9:53 AM DOOR INSTALLER - 07/21/2024 11:46 AM DOOR INSTALLER Surgery [facility] Draw Fire Operator [address] [place] [phone] Kiel Vasquez MD [address] [place] [address] [address] [place] [address] Left atrial appendage closure percutaneous 07/28/2024 8:30 AM DOOR INSTALLER Office Visit [facility] Oncology and Hematology - [place] [address] [facility] [address] [place] [address] Nahid Hickman MD [address] [facility] [address] [place] [address] 09/09/2024 1:00 PM CDT Office Visit [facility] Heart and Vascular At [address] [place] [address] Kiel Vasquez MD [address] [place] [address] [address] [place] [address] 12/16/2024 11:00 AM CDT Office Visit [facility] HEART AND VASCULAR EP AT [address] [place] [address] Demetrius Bowling DNP [address] [place] [address] [address] [place] [address] 02/05/2025 10:45 AM CDT Telephone Check Up [facility] Heart and Vascular At [address] [place] [address] 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 FNP [facility] [place] [address] documented as of this encounter Visit Diagnoses Not on filedocumented in this encounter Care Teams Counter Stacker Relationship Specialty Start Date End Date Aliza Bain MD [address] [place] [address] PCP - General Family Practice 11/22/21 documented as of this encounter
--- OUTSIDE RECORDS SUMMARY | 2024-07-01 00:43 | XMS_ITS | Encounter Summary ---
Author Organization [facility] Address [address] [place] [address] Care Team Providers Care Computer Network Engineer Name Role Phone Aliza Bain MD Primary Care Provider Reason for Visit * Auth/Cert Specialty Diagnoses / Procedures Referred By Contac t Referred To Contact Cardiology Diagnoses AFIB Procedures ABLATION (PULMONARY VEIN ISOLATION) [facility] [employer] Worker [address] [place] [address] Referral ID Status Reason Start Date Expiration Date Visits Re quested Visits Authorized 1 1 Encounter Details Date Type Department Care Team (Late st Contact Info) Description 08/16/2021 7:30 AM MASTER STEAM YACHT - 08/16/2021 11:00 AM MASTER STEAM YACHT Surgery [facility] [employer] Worker [address] [place] [address] Melita Woods MD NO ADDRESS ON FILE ABLATION (PULMONARY VEIN ISOLATION) Surgery Details Date/Time Status Location OR Service Patient Class Case Class Case Type Trauma Case? 08/16/2021 7:30 AM Posted [facility] INVASIVE CARDIOLOGY HV EP 6 Electrophysiology Outpatient No Panel 1 Procedure LRB Anes Op Region Wound Class Comments ABLATION (PULMONARY VEIN ISOLATION) N/A General Surgeon Surgeon Role Service Panel Melita Woods MD Primary Electrophysiolog y 1 Case Notes Peggy, Afib ablation / anes, carto, jet, covid test on 08/12 documented in this encounter Social History Tobacco [...] COVID-19? No / Unsure 08/16/2021 5:34 AM MASTER STEAM YACHT documented as of this encounter Last Filed Vital Signs Vital Sign Reading Time Taken Comments Blood Pressure - - Pulse - - Temperature 36.8 ??C (98.3 ??F) 08/16/2021 6:53 AM CS T Respiratory Rate - - Oxygen Saturation - - Inhaled Oxygen Concentration - - Weight - - Height - - Body Mass Index - - documented in this encounter Discharge Instructions * Discharge Instructions* Brittny Mar PA-C - 08/15/2021 12:28 PM MASTER STEAM YACHT Post Ablation Thank you for choosing [facility] to care for your health care needs! Now that you are going home we want to be sure you understand how to best care for yourself. 1. The sedation which was given to keep you comfortable during your procedure will be acting in your body for the next 24 hours, so you may feel a little sleepy. This feeling will slowly wear off. Because the medication is still in your system for the next 24 hours, you: -should have a responsible adult with you the rest of today and also during the night for your protection and safety. -should have a responsible adult to drive you home -should not drive a car, operate machinery or power tools -should not drink any alcoholic beverages or take other sedating substances, unless prescribed. -should not make any important decisions or sign any important papers. ACTIVITY and WOUND CARE: - No driving for 3 days. - No moderate to heavy exertion, including golfing, jogging, shoveling, no lifting more than 10 lbs. for the next 1 week. - May shower in the A.M. Remove bandage in shower with water. Wash site with soap and water. Pat dry gently. No need to reapply additional bandage, but keep area of incision clean and dry. Shower daily. Although showering is permitted, do not submerge in any water for 1 week. (i.e. no tub bath, hottub, or swimming pools) - You may resume your normal diet when you arrive home, unless your doctor instructs you otherwise. - If you have a moderate amount of discomfort at the site, you may apply an ice pack for 20 minutes, 3 times a day. - If you cough or sneeze for the next 48 hours, hold pressure to your incision site with your fingers. - A small knot may develop at the site of the insertion of the catheter. If the knot becomes larger, or is painful, contact your physician. - If bleeding occurs, apply pressure (with your fingers) above the site for 10 minutes. If you are unable to stop bleeding, call 911. Continue to apply pressure until EMS arrives. Have EMS transport you to the nearest emergency room. - Watch for signs and symptoms of infection (redness, warmth, fever >101). Report to Dr Melita Woods. ADDITIONAL INSTRUCTIONS: - You may receive a prescription for pain medication, take as directed. If none is provided, Extra Strength Tylenol may be taken every 6 hours as needed for pain. - For the first 1-2 months after your ablation, it is not uncommon to have short episodes of palpitations or fluttering in your chest. This is part of the healing process. If however the episodes persist or last longer than 12 hours, please give our office a call. - Notify the doctor???s office immediately if you develop abrupt dizziness, chest pain, pain with swallowing, difficulty swallowing or shortness of breath. If you feel this is an urgent matter, call 911 or go to ER. - Please contact a nurse if you have any other questions or concerns. [phone] Heart patients: Weigh yourself every day at the same time, with the same amount of clothing and after you have emptied your bladder. Keep a log of your daily weights and bring them with you to yourMD appointments. Call your MD if you have a weight gain of 2 lbs. in one day (or 5 lbs in one week)or if you have increased shortness of breath or if you have increased swelling in your feet, belly or legs. Call 911 or go to the nearest emergency room if you have increased shortness of breath or chest pain or discomfort. Please bring your own mask to the facility, we encourage you to wear it when coming into the hospital. Please know that we continue to implement measures such as visitor restrictions, screening all co-workers and visitors prior to entry and social distancing as a precaution for our patients and co-workers. APPOINTMENTS: You have an appointment with Dr. Melita Woods's nurse practitioner, Jaya Ricks, on 11/07/2021 8:30 AM . The office is located at [facility], second floor of [facility], [address], [address]. Call [phone] if you need to reschedule. ER STEAM YACHT documented in this encounter Medications at Time [...] by mouth daily apixaban (Eliquis) 5 mg tabletIndications:New onset atrial fibrillation Take 1 Tablet (5 mg) by mouth 2 times daily. 60 Tablet 6 07/25/2021 03/06/2022 glucosamine sulfate 500 mg Capsule Take 500 mg by mouth. 06/22/2022 hydroCHLOROthiazide 25 mg tablet TAKE 1 TABLET BY MOUTH EVERY DAY 05/07/2020 10/30/2023 documented as of this encounter H&P Notes * Melita Woods MD - 08/16/2021 8:42 AM CST CC: Atrial fibrillation HPI: Cassandra Martinez is a 76 y.o. female with past medical history notable for hypertension, non-small cell lung cancer, carotid artery stenosis, and persistent atrial fibrillation. She was diagnosed withatrial fibrillation when she underwent lung resection in August 2020. Her symptoms have progressed ever since and now she reports a great deal of fatigue, shortness of breath, and lightheadedness. Shewas referred for consideration of other management options for atrial fibrillation. REVIEW OF SYSTEMS Review of Systems Constitutional: Negative. Negative for fever and fatigue. HENT: Negative. Eyes: Negative. Negative for visual disturbance. Respiratory: Negative. Negative for shortness of breath and wheezing. Cardiovascular: Negative. Negative for chest pain and leg swelling. Gastrointestinal: Negative. Musculoskeletal: Negative. Skin: Negative. Neurological: Negative for dizziness. Psychiatric/Behavioral: Negative. All other systems reviewed and are negative. Past Medical History: Diagnosis Date ??? Arthritis [...] THORACOTOMY performed by Edinson Ferrell MD at [facility] OR ??? HX TONSILLECTOMY ??? HX TRIGGER FINGER REPAIR ??? [place] RMVL LUNG OTHER THAN PNEUMONECTOMY 1 LOBE LOBECT Right 08/31/2020 LUNG LOBECTOMY performed by Edinson Ferrell MD at [facility] OR Family History Problem Relation Name Age of Onset ??? Heart Disease Father ??? Heart Disease Mother ??? Stroke Sister ??? Asthma Sister Current Facility-Administered Medications Medication Dose Route Frequency Provider Last Rate Last Admin ??? lactated ringers infusion IV post-proc continuous Erickson Briceño MD ??? fentaNYL PF (SUBLIMAZE) 50 mcg/mL injection 25 mcg 25 mcg IV post-proc every 3 minutes PRN Erickson Briceño MD ??? naloxone (NARCAN) 0.4 mg/mL injection 0.1 mg 0.1 mg IV see admin instructions Erickson Briceño MD ??? ondansetron (ZOFRAN) 4 mg/2 mL injection 4 mg 4 mg IV post-proc one time PRN Erickson Briceño MD ??? diphenhydrAMINE (BENADRYL) injection 12.5 mg 12.5 mg IV post-proc one time PRN Erickson Briceño MD ??? heparin 1,000 Units in sodium chloride 0.9% 1,000 mL solution Irrigation intra-proc ONE time Melita Woods MD Facility-Administered Medications Ordered in Other Encounters Medication Dose Route Frequency Provider Last Rate Last Admin ??? lactated ringers infusion IV intra-proc continuous PRN Gareth Kolb AA-C New Bag at 08/16/21 0640 ??? midazolam (PF) (VERSED) injection IV intra-proc PRN Gareth Kolb AA-C 1 mg at 08/16/21 0643 ??? phenylephrine (LAURA-SYNEPHRINE) 20 mg/250 mL in 0.9% sodium chloride infusion (INTRA-OP USE ONLY) IV intra-proc continuous PRN Gareth Kolb AA-C 9.9 mL/hr at 08/16/21 0839 0.2 mcg/kg/min at 08/16/21 0839 ??? propofoL (DIPRIVAN) injection IV intra-proc continuous PRN Gareth Kolb AA- C 19.8 mL/hr at 08/16/21 0840 50 mcg/kg/min at 08/16/21 0840 ??? remifentaniL (ULTIVA) 2,000 mcg in sodium chloride 0.9% 250 mL infusion IV intra-proc continuous PRN Gareth Kolb AA-C 39.6 mL/hr at 08/16/21 0840 0.08 mcg/kg/min at 08/16/21 0840 Social History Tobacco Use ??? Smoking status: Former Smoker Packs/day: 0.50 Years: 40.00 Pack years: 20.00 Types: Cigarettes Quit date: 08/19/1999 Years since quittin.0 ??? Smokeless tobacco: Never Used Vaping Use ??? Vaping Use: Never used Substance Use Topics ??? Alcohol use: Yes Comment: occasional ??? Drug use: Never PHYSICAL EXAM Vitals: 08/16/21 0653 Temp: 98.3 ??F (36.8 ??C) Constitutional: Oriented to person, place, and time. [...] with rapid ventricular response ASSESSMENT AND PLAN: 1. Persistent atrial fibrillation 2. Hypertension 3. Non-small cell lung cancer status post lung resection Symptomatic in atrial fibrillation Rate control has been a bit difficult Discussed several management options including antiarrhythmic drugs vs ablation I explained that complications associated with ablation include, but are not limited to, vascular injury, bleeding, pericardial effusion and tamponade requiring surgical intervention, phrenic nerve palsy, stroke, pulmonary vein stenosis, and the potentially fatal complication of atrial esophageal fistula. She wants to pursue ablation Duration of AF unknown BP high Add Dilt CD 240mg daily Lexis Reynolds Thank you very much for giving us a chance to participate int the care of your patient. Please do not hesitate to contact us if we can be of further assistance. This note was dictated using Portero speech recognition and was not edited for errors. ER STEAM YACHT documented in this encounter Miscellaneous Notes * Care Plan - Kelly Lewis RN - 08/16/2021 5:39 PM CST Bilateral groins stable post procedure/bedrest/ambulation x4. Plan of care reviewed. Discharge instructions given. Verbalized understanding. Escorted to front of hospital per w/c per RN ER STEAM YACHT * Care Plan - Celeste Queen RN - 08/16/2021 11:19 AM CST Potential for pain related to surgical/procedural intervention Interventions: Assess level of pain/comfort utilizing verbal/nonverbal pain scales; assess culturalor worship indicators attached to pain; administer pain medications as prescribed; utilize non-pharmacologic pain control and comfort measures Expected Outcome: Patient demonstrates and reports adequate pain control Outcome Met: denies Potential for anxiety related to surgical intervention Interventions: convey caring/supportive attitude; offer emotional support as needed; provide comfort measures (warm blanket, pillow, quiet environment); allow patient opportunity to verbalize concerns/fears/questions; explore coping behaviors; allow age-specific/special needs family support Expected Outcome: Patient will demonstrate decreased anxiety or adaptive coping strategies Outcome Met: calm ER STEAM YACHT documented in this encounter Plan of Treatment Upcoming Encounters Date Type Department Care Team (Late st Contact Info) Description 2024 11:00 AM MASTER STEAM YACHT Appointment [facility] [address] [place] [address] 07/21/2024 9:45 AM MASTER STEAM YACHT Appointment [facility] [employer] [address] [place] [address] Kiel Vasquez MD [address] [place] [address] 07/21/2024 9:53 AM MASTER STEAM YACHT Hospital Encounter [facility] [employer] Work[employer] [address] [place] [address] Kiel Vasquez MD [address] [place] [address] Paroxysmal A-fib 07/21/2024 9:53 AM MASTER STEAM YACHT - 07/21/2024 11:46 AM MASTER STEAM YACHT Surgery [facility] [employer] Worker [address] [place] [address] Kiel Vasquez MD [address] [place] [address] Left atrial appendage closure percutaneous 07/28/2024 8:30 AM MASTER STEAM YACHT Office Visit [facility] Oncology and Hematology - [place] [address] [facility] [address] [place] [address] Nahid Hickman MD [address] [place] [address] 09/09/2024 1:00 PM CDT Office Visit [facility] Heart [facility] Vascular At [place] [address] [place] [phone] Kiel Vasquez MD [address] [place] [address] 12/16/2024 11:00 AM CDT Office Visit [facility] HEART AND VASCULAR EP AT [place] [address] [place] [address] Demetrius Bowling DNP [facility] [address] [place] [phone] 02/05/2025 10:45 AM CDT Telephone Check Up [facility] Heart and Vascular At [address] [place] [phone] 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, CAT [address] [place] [phone] documented as of this encounter Procedures Procedure Name Priority Date/Time Associated Diagnosis Comments TELEMETRY REPORT 08/17/2021 4:43 PM MASTER STEAM YACHT PVI ABLATION Routine 08/16/2021 10:40 AM MASTER STEAM YACHT POC ACTIVATED CLOTTING TIME Routine 08/16/2021 9:55 AM MASTER STEAM YACHT POC ACTIVATED CLOTTING TIME Routine 08/16/2021 9:17 AM MASTER STEAM YACHT ECHO TRANSESOPHAGEAL W DOPPLER AND COLOR FLOW Routine 08/16/2021 8:54 AM MASTER STEAM YACHT Paroxysmal atrial fibrillation POC LACTIC ACID Routine 08/16/2021 7:15 AM MASTER STEAM YACHT BLOOD GAS,(INCL. H+H, LYTES, GLUC) Routine 08/16/2021 7:15 AM MASTER STEAM YACHT OXIMETRY Routine 08/16/2021 7:15 AM MASTER STEAM YACHT METHEMOGLOBIN QUANTITATIVE Routine 08/16/2021 7:15 AM MASTER STEAM YACHT CARBOXYHEMOGLOBIN Routine 08/16/2021 7:1 5 AM MASTER STEAM YACHT DIFFERENTIAL, MANUAL Stat 08/16/2021 6:02 AM MASTER STEAM YACHT CBC WITH DIFFERENTIAL Stat 08/16/2021 6:02 AM MASTER STEAM YACHT PROTIME-INR Stat 08/16/2021 6:02 AM MASTER STEAM YACHT TYPE AND SCREEN Stat 08/16/2021 6:02 AM MASTER STEAM YACHT MAGNESIUM LEVEL Stat 08/16/2021 6:02 AM MASTER STEAM YACHT BASIC METABOLIC PANEL Stat 08/16/2021 6:02 AM MASTER STEAM YACHT documented in this encounter Results * TELEMETRY REPORT (08/17/2021 4:43 PM MASTER STEAM YACHT) Provider Scanning ECG ORDERABLES * PVI ABLATION (08/16/2021 10:40 AM MASTER STEAM YACHT) Narrative [facility] - 08/16/2021 12:23 PM MASTER STEAM YACHT Electrophysiology Study and AF Ablation Procedure Note Procedure Performed: ? Diagnostic EPS ? RA, LA, RV, and left ventricular pacing and recording ? Dual transeptal access ? 3D Mapping ? RF ablation for pulmonary vein isolation ? Intracardiac Echocardiography ? Attempted arrhythmia induction during IV drug administration (adenosine injection) . ? Additional ablation of the RA or the LA for AF (cavotricuspid isthmus ablation) . ? Complete transesophageal echocardiogram (2D, Doppler and color dopper) . ? Ultrasound-guided vascular access Procedure: The risks benefits, alternatives, and anticipated results of EPS, RF ablation and sedation were explained to the patient. Those risks include, but are not limited to, cardiac perforation with subsequent tamponade, Vascular injury, infection, heart block, stroke, dislodgement of pacemaker or ICD leads (if applicable), and . The patient was taken to the cardiac electrophysiology lab in the fasting state. Endotracheal intubation and general anesthesia were carried out by the anesthesia service. An esophageal temperature probe was placed by the anesthesia service. The transesophageal echo probe was placed by the anesthesia service. ??A complete transesophageal echocardiography exam was performed including Doppler, and color Doppler. There was no thrombus visualized in the left atrial appendage. Left atrial appendage flow velocity was normal. The LV function was normal. There was no pericardial effusion. There was moderate MR. There was no AI or ASD. There was mild TR. Two 8 Fr sheaths were inserted into the right femoral vein; two sheaths (7, and 9 Fr) were inserted into the left femoral vein using the modified Seldinger technique. Ultrasound was used to guide access, and visualize the common femoral vessels, in addition to the the level of arterial bifurcation. A decapolar catheter was advanced through the 7 Fr sheaths under fluoroscopy into the coronary sinus. An 8Fr. intracardiac ultrasound catheter was advanced to the right atrium. Baseline ICE examination showed: four separate PV ostia, normal left ventricular function, moderately dilated right atrium, moderately dilated left atrium, minimal amount of pericardial fluid. The two 8 Fr RFV sheaths were then upgraded to an 8.5 Fr Agilis steerable introducer and an 8.5 Fr Preface introducer, respectively. After initiating a heparin bolus and drip to achieve an ACT > 350 sec, dual transseptal punctures were performed with a Brockenbrough needle guided by ICE. Left atrial pressure was recorded. Both transseptal sheaths were positioned in the left atrium to facilitate mapping and ablation. There were no immediate complications, and no pericardial effusion by ICE. The PentaRay multielectrode mapping catheter and the irrigated tip ablation catheter were then advanced into the left atrium. The patient presented to the lab in sinus rhythm. An electro-anatomic map of the left atrium was created using the Carto 3D mapping system in SR. Left atrial bipolar voltage mapping was performed. There was no extra pulmonary vein bipolar voltage abnormality. A wide area circumferential ablation of the ipsilateral pulomonary veins was performed on both sides. Entry and exit block were demonstrated after ablation. High output pacing was performed around the septal aspect of the right pulmonary veins to avoid ablation in the vicinity of the phrenic nerve. An esophageal temperature probe was used and energy delivery was titrated accordingly. We then administered adenosine to induce AV block, unmask concealed preexcitation, check for spontaneous AF induction, in addition to pulmonary vein reconnection. ??AV block was observed after the administration of adenosine. ??There was no preexcitation, spontaneous atrial fibrillation, or pulmonary vein reconnection. ?? Decision was made to proceed with ablation of the CTI given obesity, suspected obstructive sleep apnea, right atrial enlargement, and persistent AF all of which are risk factors for developing cavotricuspid isthmus dependent flutter which is a known trigger for atrial fibrillation. All catheters were then withdrawn to the right atrium. RF was delivered to the CTI in linear fashion until conduction block was achieved. Bidirectional block across the CTI was confirmed with differential pacing. Basic EP study was performed. The RA, RV, LA, CS, and LV (the ablation catheter was advanced across the mitral valve) were paced and recorded. ?? The AH was 86 ms. ??HV is 44 ms. ??The AV Wenckebach cycle length was 510 ms. ??VA conduction was not present at baseline. Final ICE examination showed no pericardial effusion and no marked change in PV flow velocities relative to baseline value. Anticoagulation was reversed with protamine. All catheters were then removed. All sheaths were aspirated and flushed. Impression: Symptomatic persistent AF Normal left atrial bipolar voltage Successful durable pulmonary vein isolation with entry and exit block Successful ablation of the CTI with bidirectional block Recommendations: Routine post ablation care Bed rest for four hours after sheath pull Anticagulation: resume OAC Antiarrhytmics: none Incentive spirometry PPI x at least 15 days Lasix 40 mg IV x1 Total RF Cryo Time Total RF time is 33 minutes and 52 seconds. Melita MCCRAY EP ORDERABLES [facility] * POC ACTIVATED CLOTTING TIME (08/16/2021 9:55 AM MASTER STEAM YACHT) [facility] Signature ACTIVATED CLOTTING TIME POC 271 sec 08/16/2021 9:55 AM MASTER STEAM YACHT [facility] Comment: ACT value for sheath pull has been established to be < or = to 140. (See also Nursing Procedures for sheath pull in related nursing areas) Note: This sheath pull range was established at [facility] and effective 12/08/2005. Blood 08/16/2021 9:55 AM MASTER STEAM YACHT 08/16/2021 11:17 AM MASTER STEAM YACHT Melita Woods MD POINT OF CARE JASMINE ASHLYN Performing Organization Address [facility] de Phone Number [facility] CLIA# [id number] [address] [place] [address] * POC ACTIVATED CLOTTING TIME (08/16/2021 9:17 AM MASTER STEAM YACHT) ACTIVATED CLOTTING TIME POC 301 sec 08/16/2021 9:17 AM MASTER STEAM YACHT [facility] Comment: ACT value for sheath pull has been established to be < or = to 140. (See also Nursing Procedures for sheath pull in related nursing areas) Note: This sheath pull range was established at [facility] and effective 12/08/2005. Blood 08/16/2021 9:17 AM MASTER STEAM YACHT 08/16/2021 11:17 AM MASTER STEAM YACHT Melita Woods MD POINT OF CARE JASMINE ASHLYN Performing Organization Address [facility] de Phone Number [facility] CLIA# [id number] [address] [place] [address] * ECHO TRANSESOPHAGEAL W DOPPLER AND COLOR FLOW (08/16/2021 8:54 AM MASTER STEAM YACHT) Narrative 08/16/2021 8:56 AM MASTER STEAM YACHT Order information only. ??Exam was auto-finalized. ?? Melita Woods MD ORDERABLES * POC LACTIC ACID (08/16/2021 7:15 AM MASTER STEAM YACHT) LACTIC ACID POC 1.5 <=2.0 mmol/L 08/16/2021 7:15 AM [facility] SPECIMEN SOURCE, GASES POC Arterial 08/16/2021 7:15 AM [facility] SERVICES [facility] COMMENT, GASES POC RN/MD NOTIFIED 08/16/2021 7:15 AM [facility] SERVICES - [facility] Blood 08/16/2021 7:15 AM MASTER STEAM YACHT 08/16/2021 7:17 AM MASTER STEAM YACHT Melita Woods MD POINT OF CARE JASMINE TING [facility]# [id number] [address] [place] [address] * (ABNORMAL) OXIMETRY (08/16/2021 7:15 AM MASTER STEAM YACHT) OXYHEMOGLOBIN POC 95.8 94.0 - 97.0 % 08/16/2021 7:15 AM [facility] HEMOGLOBIN POC 10.0(L) 11.8 - 14.8 g/dL 08/16/2021 7:15 AM [facility] O2 SATURATION POC 98 94 - 98 % 022 7:15 AM [facility] SPECIMEN SOURCE, GASES POC Arterial 08/16/2021 7:15 AM [facility] SAMPLE SITE, GASES POC N-SY 08/16/2021 7:15 AM [facility] LABORATORY SERVICES [facility] COMMENT, GASES POC RN/MD NOTIFIED 08/16/2021 7:15 AM [facility] LABORATORY SERVICES - [facility] Blood 08/16/2021 7:15 AM [facility] [facility] 08/16/2021 7:17 AM [facility] [employer] Melita Woods MD ABG ORDERABLES [facility]# [id number] [address] [place] [address] * (ABNORMAL) METHEMOGLOBIN QUANTITATIVE (08/16/2021 7:15 AM [facility] [employer] [facility]) METHEMOGLOBIN QUANT POC 0.9 <=1.5 % 08/16/2021 7:15 AM [facility] HEMOGLOBIN POC 10.0(L) 11.8 - 14.8 g/dL 08/16/2021 7:15 AM [facility] COMMENT, GASES POC RN/MD NOTIFIED 08/16/2021 7:15 AM [facility] Blood 08/16/2021 7:15 AM [employer] [employer] 08/16/2021 7:17 AM [employer] Melita Woods MD ABG ORDERABLES Performing Organization Address [facility] Co de Phone Number [facility] CLIA# [id number] [address] [place] [address] * (ABNORMAL) CARBOXYHEMOGLOBIN (08/16/2021 7:15 AM [facility] [employer]) Pathologist [facility] CARBOXYHEMOGLOBIN POC 1.1 <=7.0 % 08/16/2021 7:15 AM [facility] HEMOGLOBIN POC 10.0(L) 11.8 - 14.8 g/dL 08/16/2021 7:15 AM [facility] COMMENT, GASES POC RN/ NOTIFIED 08/16/2021 7:15 AM [facility] Blood 08/16/2021 7:15 AM [employer] 08/16/2021 7:17 AM [employer] Melita Woods MD ABG ORDERABLES [facility] CLIA# [id number] [address] [place] [address] * (ABNORMAL) BLOOD GAS,(INCL. H+H, LYTES, GLUC) (08/16/2021 7:15 AM [facility]) PH BLOOD POC 7.42 7.35 - 7.45 08/16/2021 7:15 AM [facility] LABORATORY SERVICES [facility] PCO2 POC 41 35 - 48 mm Hg 08/16/2021 7:15 AM [facility] PO2 POC 84 83 - 108 mm Hg 08/16/2021 7:15 AM [facility] LABORATORY SERVICES [facility] TCO2 (CALC) POC 28(H) 19 - 24 mmol/L 08/16/2021 7:15 AM [facility] HCO3 (CALC) POC 27(H) 22 - 26 mmol/L 08/16/2021 7:15 AM [facility] O2 SATURATION POC 98 94 - 98 % 08/16/2021 7:15 AM [facility] BASE EXCESS POC 2 -2 - 3 mmol/L 08/16/2021 7:15 AM [facility] HEMOGLOBIN POC 10.0(L) 11.8 - 14.8 g/dL 08/16/2021 7:15 AM [facility] HEMATOCRIT POC 30(L) 35 - 44 % 08/16/2021 7:15 AM [facility] Comment:Estimated Value GLUCOSE POC 113(H) 74 - 99 mg/dL 08/16/2021 7:15 AM [facility] LABORATORY SERVICES [facility] SODIUM POC 138 135 - 145 mmol/L 08/16/2021 7:15 AM [facility] POTASSIUM POC 3.4(L) 3.5 - 4.9 mmol/L 08/16/2021 7:15 AM [facility] CHLORIDE POC 105 98 - 107 mmol/L 08/16/2021 7:15 AM [facility] CALCIUM IONIZED POC 5.0 4.7 - 5.1 mg/dL 08/16/2021 7:15 AM [facility] PH TEMP CORRECT 7.42 7.35 - 7.45 08/17/19 7:15 AM [facility] LABORATORY SERVICES - [facility] PCO2 TEMP CORRECT 41 35 - 48 mm Hg 08/16/2021 7:15 AM [facility] LABORATORY SERVICES - [facility] PO2 TEMP CORRECT 84 83 - 108 mm Hg 08/16/2021 7:15 AM [facility] LABORATORY SERVICES - [facility] SPECIMEN SOURCE, GASES POC Arterial 08/16/2021 7:15 AM [facility] LABORATORY SERVICES - . [facility] PATIENT'S TEMPERATURE POC 37.0 degrees 08/16/2021 7:15 AM [facility] LABORATORY SERVICES - [facility] COMMENT, GASES POC RN/MD NOTIFIED 08/16/2021 7:15 AM [facility] LABORATORY SERVICES - [facility] Blood, arterial 08/16/2021 7 :15 AM [employer] [employer] 08/16/2021 7:17 AM [employer] Melita Woods MD ABG ORDERABLES [facility]# [id number] [address] [place] [address] * (ABNORMAL) MANUAL DIFFERENTIAL (08/16/2021 6:02 AM [employer]) SEGMENTED NEUTROPHILS 44 % 08/16/2021 6:58 AM [facility] LABORATORY SERVICES - . [facility] LYMPHOCYTES RELATIVE 25(L) 43 - 53 % 08/16/2021 6:58 AM [facility] LABORATORY SERVICES - . [facility] ATYPICAL LYMPHOCYTES RELATIVE 7(H) 0 - 5 % 08/16/2021 6:58 AM [facility] LABORATORY SERVICES - . [place] MONOCYTES RELATIVE 22 % 08/16/2021 6:58 AM [facility] LABORATORY SERVICES - . [place] EOSINOPHILS RELATIVE 1 % 08/16/2021 6:58 AM [facility] LABORATORY SERVICES - [facility] [place] BASOPHILS RELATIVE 1 % 08/16/2021 6:58 AM [facility] LABORATORY [facility] - . [facility] NEUTROPHILS ABSOLUTE COUNT 3.17 1.90 - 7.00 K/uL 08/16/2021 6:58 AM [facility] LABORATORY [facility] - . [facility] LYMPHOCYTES ABSOLUTE 1.78 0.70 - 4.50 K/uL 08/16/2021 6:58 AM [facility] LABORATORY [facility] - . [facility] MONOCYTES ABSOLUTE 1.59(H) 0.10 - 1.30 K/uL 08/16/2021 6:58 AM [facility] LABORATORY [facility] - [facility] [place] EOSINOPHILS ABSOLUTE 0.07 0.00 - 0.70 K/uL 08/16/2021 6:58 AM [facility] LABORATORY [facility] - [facility] [place] BASOPHILS ABSOLUTE 0.07 0.00 - 0.20 K/uL 08/16/2021 6:58 AM [facility] LABORATORY [facility] - . [facility] TOTAL CELLS COUNTED IN DIFF 109 08/16/2021 6:58 AM [facility] LABORATORY [facility]. [facility] RBC MORPHOLOGY Normal 08/16/2021 6:58 AM [facility] PLATELET EST. Consistent w Count 08/16/2021 6:58 AM [facility] Blood Venipuncture / Unknown 08/16/2021 6:02 AM [employer] 08/16/2021 6:09 AM [employer] Melita Woods MD HEMATOLOGY ORDERA BLES COM [facility] CLIA# [id number] [address] [place] [address] * (ABNORMAL) MAGNESIUM LEVEL (08/16/2021 6:02 AM [employer]) [facility] MAGNESIUM 2.6(H) 1.6 - 2.4 mg/dL 08/16/2021 6:46 AM [facility] Blood Venipuncture / Unknown 08/16/2021 6:02 AM [employer] 08/16/2021 6:09 AM [employer] Melita Woods MD CHEMISTRY ORDERAB LES [facility] CLIA# [id number] [address] [place] [address] * TYPE AND SCREEN (08/16/2021 6:02 AM [employer]) ABO GROUP O 08/16/2021 6:57 AM [facility] LABORATORY SERVICES -- [facility] RH (D) TYPE Positive 08/16/2021 6:57 AM [facility] LABORATORY SERVICES -- [facility] ANTIBODY SCREEN Negative 08/16/2021 6:57 AM [facility] LABORATORY SERVICES -- [facility] Blood Venipuncture / Unknown 08/16/2021 6:02 AM [employer] 08/16/2021 6:09 AM [employer] Melita Woods MD BLOOD BANK ORDERA BLES [facility] SERVICES -- [facility]# [id number] [address] [facility] [place] [address] * (ABNORMAL) BASIC METABOLIC PANEL (08/16/2021 6:02 AM [employer]) SODIUM 143 136 - 145 mmol/L 08/16/2021 6:46 AM [facility] LABORATORY SERVICES [facility] POTASSIUM 3.8 3.5 - 5.0 mmol/L 08/16/2021 6:46 AM [facility] LABORATORY SERVICES - [facility] CHLORIDE 104 98 - 107 mmol/L 08/16/2021 6:46 AM [facility] LABORATORY SERVICES - [facility] CO2 25 22 - 29 mmol/L 08/16/2021 6:46 AM [facility] LABORATORY SERVICES [facility] CALCIUM 9.7 8.6 - 10.2 mg/dL 08/16/2021 6:46 AM [facility] LABORATORY SERVICES [facility] BUN 25(H) 8 - 23 mg/dL 08/16/2021 6:46 AM [facility] LABORATORY SERVICES [facility] CREATININE 1.31(H) 0.51 - 0.95 mg/dL 08/16/2021 6:46 AM [facility] LABORATORY SERVICES [facility] Comment:The GFR result is no t clinically significant on patients <18 or >70 years of age. GLUCOSE 112(H) 74 - 99 mg/dL 08/16/2021 6:46 AM [facility] LABORATORY SERVICES [facility] GFR 42 mL/min/1. 73 sq meter 08/16/2021 6:46 AM [facility] Comment: eGFR calculated with 2020 CKD-EPI equation. ??Vegetarian diet, extremely high or low muscle mass, and may affect results. ??Cystatin C with Glomerular Filtration Rate is a suitable alternative for these patients. The National Kidney Foundation and the [place] [employer] Society of Nephrology (NKF-ASN) recommends using the 2020 CKD Epidemiology Collaboration (CKD-EPI) equation to calculate estimated glomerular filtration rate (eGFR). This equation is only applicable to [place] adult patients and removes race as a variable. ??Due to the variation of creatinine in different conditions, they recommend use of confirmatory tests such as eGFR from cystatin C or creatinine-cystatin GFR estimating equations, or direct measurement of clearance of an exogenous filtration marker in critical clinical decisions including but not limited to drug dosing, surgery, chemotherapy, and transplant referral. ANION GAP 14 8 - 16 mmol/L 08/16/2021 6:46 AM [facility] Blood Venipuncture / Unknown 08/16/2021 6:02 AM [employer] 08/16/2021 6:09 AM [employer] Melita Woods MD CHEMISTRY ORDERAB LES [facility]ortex [facility]# [id number] [address] [facility] [place] [address] * (ABNORMAL) CBC WITH DIFFERENTIAL (08/16/2021 6:02 AM [employer]) Pathologist [facility] WBC 7.2 4.0 - 9.8 K/uL 08/16/2021 6:20 AM [facility] RBC 3.57(L) 3.90 - 4.90 M/uL 08/16/2021 6:20 AM [facility] HEMOGLOBIN 10.2(L) 11.8 - 14.8 g/dL 08/16/2021 6:20 AM [facility] HEMATOCRIT 32.6(L) 35.5 - 44.0 % 08/16/2021 6:20 AM [facility] MCV 91.3 82.0 - 99.0 fL 08/16/2021 6:20 AM [facility] LABORATORY [facility] - [facility] MCH 28.6 27.2 - 32.6 pg 08/16/2021 6:20 AM [facility] LABORATORY [facility] - [facility] MCHC 31.3(L) 31.5 - 35.5 g/dL 08/16/2021 6:20 AM [facility] LABORATORY [facility] - [facility] RDW 14.6(H) 11.5 - 14.5 % 08/16/2021 6:20 AM [facility] LABORATORY [facility] - [facility] RDW-STDEV 49.0(H) 37.1 - 48.7 fL 08/16/2021 6:20 AM [facility] LABORAT[facility] PLATELETS 224 140 - 350 K/uL 08/16/2021 6:20 AM [facility] MPV 10.4 9.3 - 12.4 fL 08/16/2021 6:20 AM [facility] Blood Venipuncture / Unknown 08/16/2021 6:02 AM [employer] 08/16/2021 6:09 AM [employer] Melita Woods MD HEMATOLOGY ORDERA BLES [facility] Cortex [facility]# [id number] [address] [place] [address] * (ABNORMAL) PROTIME-INR (08/16/2021 6:02 AM [employer]) PROTIME 16.2(H) 12.7 - 15.1 Seconds 08/16/2021 6:31 AM [facility] INR 1.2(H) 0.9 - 1.1 08/16/2021 6:31 AM [facility] Blood Venipuncture / Unknown 08/16/2021 6:02 AM [employer] 08/16/2021 6:09 AM [employer] Narrative [facility] LABOR[facility] - 08/16/2021 6:31 AM [employer] INR Therapeutic Range: Adult: ?? 2.0 - 3.0 for pulmonary embolism or prophylaxis against venous ?thrombosis or systemic embolization. 2.0 - 3.0 for patients with tissue heart valves. 2.5 - 3.5 for patients with mechanical heart valves or post IN. Pediatric ??(12 years and under): 1.5 - 3.0 Although the target range in children is not well established, ?INR values of 1.5 - 3.0 are recommended for most patients. ?Higher values have been used in children with prosthetic ?cardiac valves and hereditary clotting disorders. (<3 days) therapeutic ranges have not been established. Melita Woods MD H[facility]ATOLOGY [facility] LABORATORY SERVICES [facility]# [id number] [address] [facility] [place] [address] documented in this encounter Visit Diagnoses Diagnosis Paroxysmal atrial fibrillation Atrial fibrillation Other persistent atrial fibrillation Paroxysmal atrial fibrillation- Primary Atrial fibrillation Paroxysmal A-fib Atrial fibrillation Paroxysmal A-fib Atrial fibrillation documented in this encounter Administered Medications Inactive Administered Medications - up to 3 most recent administrations Medication Order MAR Action Action Date Dose Rate Site apixaban (ELIQUIS) tablet 5 mg 5 mg, Oral, TWO TIMES DAILY, First dose on Sun08/16/21 at 1230, Until Discontinued, Routine, Indication: Non-valvular A Fib Given 08/16/2021 2:26 PM [employer] 5 mg atropine injection 0.5 mg 0.5 mg, IV, EVERY 5 MINUTES PRN, 3 doses, Starting on Sun08/16/21 at 1300, Until Sun08/16/21 at 1942, Heart Rate, Bradycardia, Routine, Post-Procedure (Invasive Cardiology) diphenhydrAMINE (BENADRYL) injection 12.5 mg 12.5 mg, IV, POST-PROCEDURE ONCE PRN, 1 dose, Starting on Sun08/16/21 at 0728, Until Sun08/16/21 at 1942, Nausea/Emesis, Routine, PACU fentaNYL PF (SUBLIMAZE) 50 mcg/mL injection 25 mcg 25 mcg, IV, POST-PROCEDURE Q 3 MINUTES PRN, 4 doses, Starting on Sun08/16/21 at 0728, Until Sun08/16/21 at 194, Pain, Routine, PACU furosemide (LASIX) injection 40 mg 40 mg, IV, ONE TIME ONLY, 1 dose, On Sun08/16/21 at 1230, Routine Given 08/16/2021 2:26 PM [employer] 40 mg heparin 1,000 Units in sodium chloride 0.9% 1,000 mL solution Irrigation, INTRA-PROCEDURE ONCE, 1 dose, Starting on Sun08/16/21 at 0732, Until Sun08/16/21 at 194, Routine lactated ringers infusion IV, at 30 mL/hr, POST-PROCEDURE CONTINUOUS, Starting on Sun08/16/21 at 0730, Until Sun08/16/21 at 194, Routine, PACU naloxone (NARCAN) 0.4 mg/mL injection 0.1 mg 0.1 mg, IV, SEE ADMIN INSTRUCTIONS, Starting on Sun08/16/21 at 0728, Until Sun08/16/21 at 194, Routine, PACU naloxone (NARCAN) 0.4 mg/mL injection 0.1 mg 0.1 mg, IV, SEE ADMIN INSTRUCTIONS, Starting on Sun08/16/21 at 1300, Until Sun08/16/21 at 1941, Routine, Post-Procedure (Invasive Cardiology) ondansetron (ZOFRAN) 4 mg/2 mL injection 4 mg 4 mg, IV, POST-PROCEDURE ONCE PRN, 1 dose, Starting on Sun08/16/21 at 0728, Until Sun08/16/21 at 1941, Nausea/Emesis, Routine, PACU pantoprazole (PROTONIX) tablet 40 mg 40 mg, Oral, DAILY BEFORE BREAKFAST, First dose on Sun08/16/21 at 1230, Until Discontinued, Routine, Indication: Erosive esophagitis Given 08/16/2021 2:26 PM [employer] 40 mg documented in this encounter Active and Recently Administered Medications Times are shown in [employer]. Scheduled Medication Order 08/14/2021 08/15/2021 08/16/2021 apixaban (ELIQUIS) tablet 5 mg 5 mg, Oral, TWO TIMES DAILY, First dose on Sun08/16/21 at 1230, Until Discontinued, Routine, Indication: Non-valvular A Fib 1426 (Given - Provid er: Kelly Lewis RN) furosemide (LASIX) injection 40 mg (COMPLETED) 40 mg, IV, ONE TIME ONLY, 1 dose, On Sun08/16/21 at 1230, Routine 1426 (Given - Provid er: Kelly Lewis RN) heparin 1,000 Units in sodium chloride 0.9% 1,000 mL solution Irrigation, INTRA-PROCEDURE ONCE, 1 dose, Starting on Sun08/16/21 at 0732, Until Sun08/16/21 at 1942, Routine naloxone (NARCAN) 0.4 mg/mL injection 0.1 mg 0.1 mg, IV, SEE ADMIN INSTRUCTIONS, Starting on Sun08/16/21 at 0728, Until Sun08/16/21 at 1942, Routine, PACU naloxone (NARCAN) 0.4 mg/mL injection 0.1 mg 0.1 mg, IV, SEE ADMIN INSTRUCTIONS, Starting on Sun08/16/21 at 1300, Until Sun08/16/21 at 1942, Routine, Post-Procedure (Invasive Cardiology) pantoprazole (PROTONIX) tablet 40 mg 40 mg, Oral, DAILY BEFORE BREAKFAST, First dose on Sun08/16/21 at 1230, Until Discontinued, Routine, Indication: Erosive esophagitis 1426 (Given - Provid er: Kelly Lewis RN) Continuous Medication Order 08/14/2021 08/15/2021 08/16/2021 lactated ringers infusion IV, at 30 mL/hr, POST-PROCEDURE CONTINUOUS, Starting on Sun08/16/21 at 0730, Until Sun08/16/21 at 1942, Routine, PACU 0730 (Due) PRN Medication Order 08/14/2021 08/15/2021 08/16/2021 atropine injection 0.5 mg 0.5 mg, IV, EVERY 5 MINUTES PRN, 3 doses, Starting on Sun08/16/21 at 1300, Until Sun08/16/21 at 1942, Heart Rate, Bradycardia, Routine, Post-Procedure (Invasive Cardiology) diphenhydrAMINE (BENADRYL) injection 12.5 mg 12.5 mg, IV, POST-PROCEDURE ONCE PRN, 1 dose, Starting on Sun08/16/21 at 0728, Until Sun08/16/21 at 1942, Nausea/Emesis, Routine, PACU fentaNYL PF (SUBLIMAZE) 50 mcg/mL injection 25 mcg 25 mcg, IV, POST-PROCEDURE Q 3 MINUTES PRN, 4 doses, Starting on Sun08/16/21 at 0728, Until Sun08/16/21 at 1942, Pain, Routine, PACU ondansetron (ZOFRAN) 4 mg/2 mL injection 4 mg 4 mg, IV, POST-PROCEDURE ONCE PRN, 1 dose, Starting on Sun08/16/21 at 0728, Until Sun08/16/21 at 1942, Nausea/Emesis, Routine, PACU documented in this encounter Care Teams Computer Network Engineer Relationship Specialty Start Date End Date Aliza Bain MD [address] [place] [address] PCP - General Family Practice 07/29/20 11/21/21 documented as of this encounter
--- OUTSIDE RECORDS SUMMARY | 2024-07-01 00:43 | XMS_ITS | Encounter Summary ---
Author Organization [facility] Address [address] [facility] Attn: Epic Prelude ADT [place] [address] Care Team Providers Care Cd Technician Name Role Phone Aliza Bain MD Primary Care Provider Encounter Details Date Type Department Care Team (Latest Contact Info) Description 12/15/2021 Travel Social History Tobacco Use Types Packs/Day [...] st Contact Info) Description 2024 11:00 AM PROCUREMENT BUYER Appointment [facility] [address] [place] [address] 07/21/2024 9:45 AM PROCUREMENT BUYER Appointment [facility] [address] [place] [phone] Kiel Vasquez MD [address] [place] [address] 07/21/2024 9:53 AM PROCUREMENT BUYER Hospital Encounter [facility] [address] [place] [address] Kiel Vasquez MD [address] [place] [address] Jesse Lackey-fib 07/21/2024 9:53 AM PROCUREMENT BUYER - 07/21/2024 11:46 AM PROCUREMENT BUYER Surgery [facility] [address] [place] [phone] Kiel Vasquez MD [address] [place] [address] 2014 [place] [phone] Left atrial appendage closure percutaneous 07/28/2024 8:30 AM PROCUREMENT BUYER Office Visit [facility] Oncology and Hematology - [place] [address] [facility] [address] [place] [phone] Nahid Hickman MD [address] [place] [address] 09/09/2024 1:00 PM CDT Office Visit [facility] Heart and Vascular At [address] [place] [phone] Kiel Vasquez MD [address] [place] [address] 2014 [place] [phone] 12/16/2024 11:00 AM CDT Office Visit [facility] HEART AND VASCULAR EP AT [address] [place] [phone] Demetrius Bowling DNP [address] [place] [address] 2014 [place] [address] 02/05/2025 10:45 AM CDT Telephone Check Up [facility] Heart and Vascular At [address] [place] [address] 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 FNP [address] [place] [phone] documented as of this encounter Visit Diagnoses Not on filedocumented in this encounter Care Teams Cd Technician Relationship Specialty Start Date End Date Aliza Bain MD [address] [place] [phone] PCP - General Family Practice 11/22/21 documented as of this encounter
--- OUTSIDE RECORDS SUMMARY | 2024-07-01 00:43 | XMS_ITS | Encounter Summary ---
Author Organization [facility] Address [address] [place] [address] Care Team Providers Care Neon Technician Name Role Phone Aliza Bain MD Primary Care Provider Encounter Details Date Type Department Care Team (Late st Contact Info) Description 07/20/2021 Prep for Surgery [facility] At [address] [place] [address] Melita Woods MD NO ADDRESS ON FILE Social History Tobacco [...] COVID-19? Unable to assess 07/01/2021 11:19 AM OPERATION SPECIALIST documented as of this encounter Plan of Treatment Upcoming Encounters Date Type Department Care Team (Late st Contact Info) Description 2024 11:00 AM OPERATION SPECIALIST Appointment [facility] [address] [place] [place] [phone] 07/21/2024 9:45 AM OPERATION SPECIALIST Appointment [facility] Boarding Room Fixer [address] [place] [address] Kiel Vasquez MD [address] [place] [address] 07/21/2024 9:53 AM OPERATION SPECIALIST Hospital Encounter [facility] Boarding Room Fixer [address] [place] [phone] Kiel Vasquez MD [address] [place] [address] Paroxysmal A-fib 07/21/2024 9:53 AM OPERATION SPECIALIST - 07/21/2024 11:46 AM OPERATION SPECIALIST Surgery [facility] Boarding Room Fixer [address] [place] [phone] Kiel Vasquez MD [address] [place] [address] 2014 [place] [address] Left atrial appendage closure percutaneous 07/28/2024 8:30 AM OPERATION SPECIALIST Office Visit [facility] Oncology and Hematology - [place] [address] [facility] 200 [place] [address] Nahid Hickman MD 2227 [facility] [address] [place] [address] 09/09/2024 1:00 PM CDT Office Visit [facility] At [address] 2014 [place] [address] Kiel Vasquez MD [address] [place] [address] 2014 [place] [address] 12/16/2024 11:00 AM CDT Office Visit [facility] HEART AND VASCULAR EP AT [address] 2014 [place] [address] Demetrius Bowling DNP [address] [place] [address] 2014 [place] [address] 02/05/2025 10:45 AM CDT Telephone Check Up [facility] At [address] 2014 [place] [address] 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 FNP [address] [place] [phone] documented as of this encounter Visit Diagnoses Not on filedocumented in this encounter Care Teams Neon Technician Relationship Specialty Start Date End Date Aliza Bain MD [address] [place] [address] PCP - General Family Practice 07/29/20 11/21/21 documented as of this encounter
--- OUTSIDE RECORDS SUMMARY | 2024-07-01 00:43 | XMS_ITS | Encounter Summary ---
Author Organization [facility] Address [address] [place] [address] Care Team Providers Care Ice Cream Dispenser Name Role Phone Aliza Bain MD Primary Care Provider Reason for Visit * Reason Onset Date Comments Medication Question 08/08/2021 Encounter Details Date Type Department Care Team (Late st Contact Info) Description 08/08/2021 Telephone [facility] Heart [facility] V[facility] At [address] [place] [address] Melita Woods MD NO ADDRESS ON FILE Medication Question Social History Tobacco Use Types [...] encounter Miscellaneous Notes * Telephone Encounter - Keiry Vickers RN - 08/08/2021 9:15 AM CST Called Cassandra ortiz and advised to continue taking Diltiazem. She verb understanding. CAST OPERATOR * Telephone Encounter - Keiry Vickers RN - 08/08/2021 9:14 AM CST ----- Message from Moni Curry RN sent at 08/05/2021 3:59 PM DIE CAST OPERATOR ----- Regarding: Ablation Patient would like to know if she is okay to remain on diltiazem until procedure and wants to know if she takes it the day of or not. CAST OPERATOR documented in this encounter Plan of Treatment Upcoming Encounters Date Type Department Care Team (Late st Contact Info) Description 2024 11:00 AM DIE CAST OPERATOR Appointment [facility] [address] [place] [address] 07/21/2024 9:45 AM DIE CAST OPERATOR Appointment [facility] Assistant Farm Operations Manager [address] [place] [address] Kiel Vasquez MD [address] [facility] 2014 [place] [address] 07/21/2024 9:53 AM DIE CAST OPERATOR Hospital Encounter [facility] Farm Operations Manager [address] [place] [address] Kiel Vasquez MD [address] [facility] 2014 [place] [address] Paroxysmal A-fib 07/21/2024 9:53 AM DIE CAST OPERATOR - 07/21/2024 11:46 AM DIE CAST OPERATOR Surgery [facility] Assistant Farm Operations Manager [address] [place] [address] Kiel Vasquez MD [address] [facility] 2014 [place] [address] Left atrial appendage closure percutaneous 07/28/2024 8:30 AM DIE CAST OPERATOR Office Visit [facility] Oncology and Hematology - [place] [address] [place] [phone] Nahid Hickman MD [address] [address] 09/09/2024 1:00 PM CDT Office Visit [facility] Heart and Vascular At [facility] [address] [facility] [address] [place] [address] Kiel Vasquez MD [address] [facility] 2014 [place] [address] 12/16/2024 11:00 AM CDT Office Visit [facility] HEART AND VASCULAR EP AT [facility] [address] [facility] [address] [place] [address] Demetrius Bowling DNP [address] [facility] 2014 [place] [address] 02/05/2025 10:45 AM CDT Telephone Check Up [facility] Heart and Vascular At [place] [address] [facility] [address] [place] [address] 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 FNP [address] [place] [phone] documented as of this encounter Visit Diagnoses Not on filedocumented in this encounter Care Teams Ice Cream Dispenser Relationship Specialty Start Date End Date Aliza Bain MD [address] [place] [address] PCP - General Family Practice 07/29/20 11/21/21 documented as of this encounter
--- OUTSIDE RECORDS SUMMARY | 2024-07-01 00:43 | XMS_ITS | Encounter Summary ---
Author Organization [facility] Address [address] [place] [address] Care Team Providers Care Diagnostic Technologist Name Role Phone Aliza Bain MD Primary Care Provider Reason for Visit * Reason Comments Follow Up Encounter Details Date Type Department Care Team (Late st Contact Info) Description 11/07/2021 8:30 AM CDT Office Visit [facility] HEART AND VASCULAR EP AT [address] [place] [address] Jennifer Ricks FNP NO ADDRESS ON FILE Persistent atrial fibrillation (Primary Dx) Social History Tobacco [...] any clubs o r organizations such as religious groups, unions, fraternal or athletic groups, or [...] AM CDT documented as of this encounter Last Filed Vital Signs Vital Sign Reading Time Taken Comments Blood Pressure 155/80 11/07/2021 8:36 AM CDT Pulse 71 11/07/2021 8:36 AM CDT Temperature - - Respiratory Rate - - Oxygen Saturation - - Inhaled Oxygen Concentration - - Weight 64.8 kg (142 lb 12.8 oz) 11/07/2021 8:36 AM CDT Height 160 cm (5' 3 ) 11/07/2021 8:36 AM CDT Body Mass Index 25.3 11/07/2021 8:36 AM CDT documented in this encounter Progress Notes * Jennifer Ricks FNP - 11/07/2021 8:10 AM CDT Electrophysiology Office Visit History of Present Illness: Cassandra Martinez is a 76 y.o. female who is seen in follow up for atrial fibrillation Cassandra Martinez is a 76 y.o. female with past medical history notable for hypertension, non-small cell lung cancer, myasthenia gravis, carotid artery stenosis, and persistent atrial fibrillation. She was diagnosed with atrial fibrillation when she underwent lung resection in August 2020. Her symptoms have progressed ever since and now she reports a great deal of fatigue, shortness of breath, and lightheadedness.She underwent PVI/CTI on August 16, [address] Woods. She had a splenectomy following complication from colonoscopy on 11/03/21.While at [facility] in [place], [place], they restarted her on diltiazem ER 120 mg daily for HTN (FAMILY PARTNER dose was 240 mg daily). Has been having shortness of breath since her operation. Feels worn out , in general. Not sure if it is from her recovering from surgery or AF recurrence, she is pretty sure it is not AF recurrence, because she felt great prior to her surgery. On exam, denies chest pain/pressure, lightheadedness, dizziness, near syncope, or syncope. Objective: Current Outpatient Medications on File Prior to Visit Medication Sig Dispense Refill ??? pantoprazole (PROTONIX) 20 mg Tablet, Delayed Release (E.C.) Take 20 mg by mouth 2 times daily. ??? apixaban (Eliquis) 5 mg tablet Take 1 Tablet (5 mg) by mouth 2 times daily. 60 Tablet 6 ??? HYDROcodone-acetaminophen (NORCO) 5-325 mg tablet Take 1 Tablet by mouth every 4 hours as needed for Pain. Max Daily Amount: 6 Tablets 42 Tablet 0 ??? cyanocobalamin (VITAMIN B-12) 100 mcg tablet Take 100 mcg by mouth daily. ??? calcium-cholecalciferol (OS-SUSAN 500+D) 500 mg(1,250mg) -200 unit tablet Take 1 Tablet by mouth daily. ??? glucosamine sulfate 500 mg Capsule Take 500 mg by mouth. ??? magnesium oxide 250 mg magnesium Tablet Take by mouth. ??? aspirin (ECOTRIN EC) 81 mg Tablet, Delayed Release (E.C.) Take 81 mg by mouth daily. ??? cholecalciferol, vitamin D3, (VITAMIN D3 ORAL) Take by mouth. ??? hydroCHLOROthiazide 25 mg tablet TAKE 1 TABLET BY MOUTH EVERY DAY ??? olmesartan (BENICAR) 40 mg tablet Take 40 mg by mouth daily. Medication bottle is Olmesartan Medoxomil 40 MG tab1 tab by mouth daily No current facility-administered medications on file prior to visit. Past Medical History: Diagnosis Date ??? Arthritis ??? Dyspnea on exertion ??? GERD (gastroesophageal reflux disease) ??? HTN (hypertension) ??? Hx of degenerative disc disease ??? Injury of back DDD ??? Malignant neoplasm of lung Review of Systems: General: +fatigue, No weight loss or weight gain Skin: No rashes or eruptions, no bruising Lungs: +intermittent shortness of breath since recent splenectomy, No cough or wheezing Cardiac: See HPI GI: +abdominal pain 2/2 surgical incisions, No nausea or vomiting, or change in bowel habits : No dysuria, no hematuria Neurologic: No CVA/TIA symptoms All other ROS reviewed and are negative Physical Exam: There were no vitals taken for this visit. Wt Readings from Last 3 Encounters: 06/30/21 66.7 kg (147 lb) 06/20/21 67 kg (147 lb 12.8 oz) 06/16/21 67.1 kg (148 lb) General: Well developed, well nourished in no acute distress Skin: No rashes or eruptions HEENT: Head is normocephalic, atraumatic, pupils equal and reactive to light and accommodation, sclerae anicteric, orthopharynx is clear Neck: No JVD Lungs: Respirations unlabored, clear to auscultation Heart: Regular rate and rhythm, no S3 or S4, no murmurs, gallops or rubs Abdomen: Soft, non-tender, non-distended. Normoactive bowel sounds. Mid-line abdominal incision with steri strips, clean, dry, and intact. No signs of infection. Extremities: No cyanosis, clubbing or edema. Peripheral [...] ALT 9 06/30/2021 ANIONGAP 14 08/16/2021 Data: NM stress 07/01/2021 IMPRESSION: 1) The EKG stress test is non-ischemic. 2) The overall quality of the study is good. 3) The myocardial perfusion scan is normal. 4) Left ventricular size is normal with normal left ventricular systolic function, and a calculated ejection fraction of 64%. 5) No previous study was available for comparison. Echo 07/01/21 SUMMARY: -- - Left ventricle: The cavity [...] during systole by Doppler is 25mm Hg. [id number] Score of 4 (HTN, Age x 2, Female) EKG: SR, 71 bpm, normal [place], normal QT Assessment: 1. Persistent atrial fibrillation s/p PVI/CTI August 2021 2. Non-small cell lung CA - s/p partial lung resection August 2019, never needed chemo or radiation 3. HTN - elevated today. 4. Hx Myasthenia Gravis 5. 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 Doing well from a cardiac standpoint since ablation. She reports feeling really good as far as her AF goes, but is struggling with fatigue and deconditioning since her splenectomy recently. 2. BP not well controlled today, 155/80. Cassandra checks her BP at home and reports it's usually in the 160s, HR in the 60s-70s. She was restarted on diltiazem 120 mg daily at [facility] in [place], [place]. Increased her dose to 240 mg daily today, until her FU with Dr. Vasquez on December 15. She will keep a log of her BP and HR to bring to her appt with Dr. Vasquez. 3. Continue Eliquis 5 mg BID for CVA prevention. Reports no issues with bleeding. 4. RTC 1 year or sooner if needed. CAT Mendieta- Electrophysiology Nurse Practitioner documented in this encounter Procedure Notes * Jennifer Ricks FNP - 11/07/2021 9:00 AM CDTAssociated Order(s): EKG 12-LEAD Procedure(s): [place] ECG ROUTINE ECG W/LEAST 12 LDS W/I&R Pre-Procedure Diagnose(s): Persistent atrial fibrillation SR, 71 bpm, normal [place], normal QT documented in this encounter Miscellaneous Notes * Patient Instructions - Jennifer Ricks FNP - 11/07/2021 8:45 AM CDT Increase Tiadtyl (diltiazem) to 2 pills daily (240 mg) for HTN. Follow up with Dr. Vasquez as scheduled on December 15. Keep blood pressure log with heart rate included and bring to your appointment. documented in this encounter Plan of Treatment Upcoming Encounters Date Type Department Care Team (Late st Contact Info) Description 2024 11:00 AM MANAGEMENT TRAINEE PROGRAM STORES Appointment [facility] [address] [place] [address] 07/21/2024 9:45 AM MANAGEMENT TRAINEE PROGRAM STORES Appointment [facility] [address] [place] [address] Kiel Vasquez MD [address] [facility] 2014 [place] [address] 07/21/2024 9:53 AM MANAGEMENT TRAINEE PROGRAM STORES Hospital Encounter [facility] [address] [place] [address] Kiel Vasquez MD [address] [facility] 2014 [place] [address] Paroxysmal A-fib 07/21/2024 9:53 AM MANAGEMENT TRAINEE PROGRAM STORES - 07/21/2024 11:46 AM MANAGEMENT TRAINEE PROGRAM STORES Surgery [facility] [address] [place] [address] Kiel Vasquez MD [address] [facility] 2014 [place] [address] Left atrial appendage closure percutaneous 07/28/2024 8:30 AM MANAGEMENT TRAINEE PROGRAM STORES Office Visit [facility] Oncology and Hematology - [place] [address] [place] [phone] Nahid Hickman MD [address] [address] 09/09/2024 1:00 PM CDT Office Visit [facility] Heart [facility] Vascular At [facility] [address] [facility] 2014 [place] [address] Kiel Vasquez MD [address] [facility] 2014 [place] [address] 12/16/2024 11:00 AM CDT Office Visit [facility] HEART AND VASCULAR EP AT [place] [address] [facility] 2014 [place] [address] Demetrius Bowling DNP [address] [facility] 2014 [place] [address] 02/05/2025 10:45 AM CDT Telephone Check Up [facility] Heart and Vascular At [place] [address] [address] [facility] 2014 [place] [address] 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 FNP [address] [place] [address] documented as of this encounter Procedures Procedure Name Priority Date/Time Associated Diagnosis Comments [place] ECG ROUTINE ECG W/LEAST 12 LDS W/I&R Routine 11/07/2021 9:00 AM CDT Persistent atrial fibrillation documented in this encounter Results * [place] ECG ROUTINE ECG W/LEAST 12 LDS W/I&R (11/07/2021 9:00 AM CDT) Narrative [facility] HEART AND VASCULAR - 11/07/2021 9:00 AM CDT Jennifer Ricks FNP ? 11/07/2021 10:17 AM SR, 71 bpm, normal [place], normal QT Procedure Note Jennifer Ricks FNP - 11/07/2021 9:00 AM CDT SR, 71 bpm, normal [place], normal QT Jennifer SHELTON ECG ORDERABLES [facility] HEART AND VASCULAR CLIA #[id number] [address] [place] [address] [place] [address] documented in this encounter Visit Diagnoses Diagnosis Persistent atrial fibrillation- Primary Atrial fibrillation Paroxysmal atrial fibrillation- Primary Atrial fibrillation Paroxysmal A-fib Atrial fibrillation Paroxysmal A-fib Atrial fibrillation documented in this encounter Care Teams Diagnostic Technologist Relationship Specialty Start Date End Date Aliza Bain MD [address] [place] [address] PCP - General Family Practice 07/29/20 11/21/21 documented as of this encounter
--- OUTSIDE RECORDS SUMMARY | 2024-07-01 00:43 | XMS_ITS | Encounter Summary ---
Author Organization [facility] Address [address] [place] [address] Care Team Providers Care Machine Maintenance Name Role Phone Aliza Bain MD Primary Care Provider Encounter Details Date Type Department Care Team (Late st Contact Info) Description 10/04/2021 Abstract [facility] Oncology and Hematology - [place] [address] [place] [address] Tariq Strong, RN Social History Tobacco Use Types Packs/Day [...] st Contact Info) Description 2024 11:00 AM TURKEY CLEANER Appointment [facility] [address] [place] [address] 07/21/2024 9:45 AM TURKEY CLEANER Appointment [facility] Glazing Machine Operator [address] [place] [address] Kiel Vasquez MD [address] [facility] 2014 [place] [address] 07/21/2024 9:53 AM TURKEY CLEANER Hospital Encounter [facility] Glazing Machine Operator [address] [place] [address] Kiel Vasquez MD [address] [facility] [address] [place] [address] Jesse Lackey-fib 07/21/2024 9:53 AM TURKEY CLEANER - 07/21/2024 11:46 AM TURKEY CLEANER Surgery [facility] Glazing Machine Operator [address] [place] [address] Kiel Vasquez MD [facility] 2014 [place] [address] Left atrial appendage closure percutaneous 07/28/2024 8:30 AM TURKEY CLEANER Office Visit [facility] Oncology and Hematology - [place] [address] [facility] 200 [place] [address] Nahid Hickman MD [address] [facility] [address] [place] [address] 09/09/2024 1:00 PM CDT Office Visit [facility] Heart and Vascular At [address] [place] [address] Kiel Vasquez MD [address] [place] [address] 2014 [place] [address] 12/16/2024 11:00 AM CDT Office Visit [facility] HEART AND VASCULAR EP AT [address] [place] [address] Demetrius Bowling DNP [address] [place] [address] 2014 [place] [address] 02/05/2025 10:45 AM CDT Telephone Check Up [facility] Heart and Vascular At [address] 2014 [place] [address] 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 FNP [address] [place] [phone] documented as of this encounter Visit Diagnoses Not on filedocumented in this encounter Care Teams Machine Maintenance Relationship Specialty Start Date End Date Aliza Bain MD [address] [place] [address] PCP - General Family Practice 07/29/20 11/21/21 documented as of this encounter
--- OUTSIDE RECORDS SUMMARY | 2024-07-01 00:43 | XMS_ITS | Encounter Summary ---
Author Organization [facility] [employer] [facility] Address [address] [place] [address] Care Team Providers Care Geography Teacher Name Role Phone Aliza Bain MD Primary Care Provider Encounter Details Date Type Department Care Team (Late st Contact Info) Description 11/18/2021 Orders Only [facility] Oncology and Hematology - [place] [address] [facility] 200 [place] [address] Nahid Hickman MD [address] [employer] [address] [place] [address] Social History Tobacco Use Types [...] any clubs o r organizations such as adventist groups, unions, fraternal or athletic groups, or [...] Contact Info) Description 2024 11:00 AM WATER RESOURCE ENGINEERING SPECIALIST Appointment [facility] [address] [place] [address] 07/21/2024 9:45 AM WATER RESOURCE ENGINEERING SPECIALIST Appointment [facility] [employer] [address] [place] [address] Kiel Vasquez MD [address] [facility] 2014 [place] [address] 07/21/2024 9:53 AM WATER RESOURCE ENGINEERING SPECIALIST Hospital Encounter [facility] [employer] [address] [place] [address] Kiel Vasquez MD [address] [place] [address] 2014 [place] [address] Paroxysmal A-fib 07/21/2024 9:53 AM WATER RESOURCE ENGINEERING SPECIALIST - 07/21/2024 11:46 AM WATER RESOURCE ENGINEERING SPECIALIST Surgery [facility] [employer] [address] [place] [phone] Kiel Vasquez MD [address] [place] [address] 2014 [place] [address] Left atrial appendage closure percutaneous 07/28/2024 8:30 AM WATER RESOURCE ENGINEERING SPECIALIST Office Visit [facility] Oncology and Hematology - [place] [address] [facility] 200 [place] [address] Nahid Hickman MD [address] [facility] [address] [place] [address] 09/09/2024 1:00 PM CDT Office Visit [facility] Heart and Vascular At [address] [place] [address] Kiel Vasquez MD [address] [place] [address] 2014 [place] [address] 12/16/2024 11:00 AM CDT Office Visit [facility] HEART AND VASCULAR EP AT [address] [place] [address] Demetrius Bowling DNP [address] [place] [address] 2014 [place] [address] 02/05/2025 10:45 AM CDT Telephone Check Up [facility] Heart and Vascular At [address] [place] [address] 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 FNP [address] [place] [address] [place] [address] documented as of this encounter Procedures Procedure Name Priority Date/Time Associated Diagnosis Comments CT CHEST WO CONTRAST Routine 11/16/2021 documented in this encounter Results * CT CHEST WO CONTRAST (11/16/2021) Anatomical Region Laterality Modality Chest Other Nahid Hickman MD CT ORDERABLES documented in this encounter Visit Diagnoses Not on filedocumented in this encounter Care Teams Geography Teacher Relationship Specialty Start Date End Date Aliza Bain MD [address] [place] [address] PCP - General Family Practice 07/29/20 11/21/21 documented as of this encounter
--- OUTSIDE RECORDS SUMMARY | 2024-07-01 00:43 | XMS_ITS | Encounter Summary ---
Author Organization [facility] Address [address] [place] [address] Care Team Providers Care Director Of Operations Name Role Phone Aliza Bain MD Primary Care Provider Encounter Details Date Type Department Care Team (Late st Contact Info) Description 10/19/2021 [facility] - [facility] [address] [facility] [address] [place] [address] Kiel Vasquez MD [address] [facility] [address] [place] [address] Social History Tobacco Use Types [...] Contact Info) Description 2024 11:00 AM MANAGER INTERNET Appointment [facility] [address] [place] [address] 07/21/2024 9:45 AM MANAGER INTERNET Appointment [facility] [employer] [address] [place] [phone] Kiel Vasquez MD [address] [facility] [address] [place] [address] 07/21/2024 9:53 AM MANAGER INTERNET Hospital Encounter [facility] [employer] [address] [place] [address] Kiel Vasquez MD [address] [facility] [address] [place] [address] Paroxysmal A-fib 07/21/2024 9:53 AM MANAGER INTERNET - 07/21/2024 11:46 AM MANAGER INTERNET Surgery [facility] [employer] [address] [place] [phone] Kiel Vasquez MD [address] [place] [address] [address] [place] [phone] Left atrial appendage closure percutaneous 07/28/2024 8:30 AM MANAGER INTERNET Office [facility] - [place] [address] [facility] [address] [place] [phone] Nahid Hickman MD [address] [facility] [address] [place] [address] 09/09/2024 1:00 PM CDT Office Visit [facility] At [address] [place] [phone] Kiel Vasquez MD [address] [place] [address] 2014 [place] [address] 12/16/2024 11:00 AM CDT Office Visit [facility] EP AT [address] [place] [address] Demetrius Bowling DNP [address] [place] [address] [address] [place] [address] 02/05/2025 10:45 AM CDT Telephone Check Up [facility] At [address] [place] [address] 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 FNP [address] [place] [phone] documented as of this encounter Visit Diagnoses Not on filedocumented in this encounter Care Teams Director Of Operations Relationship Specialty Start Date End Date Aliza Bain MD [address] [place] [address] PCP - General Family Practice 07/29/20 11/21/21 documented as of this encounter
--- OUTSIDE RECORDS SUMMARY | 2024-07-01 00:43 | XMS_ITS | Encounter Summary ---
Author Organization [facility] Address [address] [place] [address] Care Team Providers Care Shoulder Puncher Name Role Phone Aliza Bain MD Primary Care Provider Reason for Referral * Radiology Services (Routine) - Closed Specialty Diagnoses / Procedures Referred By Meghana vigil Referred To Contact Cardiology Diagnoses Paroxysmal atrial fibrillation Procedures ECHO TRANSESOPHAGEAL W DOPPLER AND COLOR FLOW SD DOPPLER ECHO HEART,COMPLETE SD ECHO TRANSESOPHAG R-T 2D W/PRB IMG ACQUISJ I&R SD DOPPLER COLOR FLOW VELOCITY MAP Melita Woods MD NO ADDRESS ON FILE [facility] Electrophysiology [address] [place] [address] Referral ID Status Reason Start Date Expiration Date Visits Re quested Visits Authorized [id number] Closed 07/20/2021 08/20/2022 1 1 ER ROLLER GRINDER OPERATOR Reason for Visit * Auth/Cert Specialty Diagnoses / Procedures Referred By Contac t Referred To Contact Cardiology Diagnoses AFIB Procedures ABLATION (PULMONARY VEIN ISOLATION) [facility] Mobile Battery Technician [address] [place] [address] Referral ID Status Reason Start Date Expiration Date Visits Re quested Visits Authorized [id number] 1 1 Encounter Details Date Type Department Care Team (Latest Contact Info) Description 08/16/2021 5:41 AM RUBBER ROLLER GRINDER OPERATOR - 08/16/2021 5:30 PM RUBBER ROLLER GRINDER OPERATOR Hospital Encounter [facility] [address] [place] [address] Melita Woods MD NO ADDRESS ON FILE Discharge Disposition: Home or Self Care Social [...] COVID-19? No / Unsure 08/16/2021 5:34 AM RUBBER ROLLER GRINDER OPERATOR documented as of this encounter Last Filed Vital Signs Vital Sign Reading Time Taken Comments Blood Pressure 143/66 08/16/2021 1:30 PM RUBBER ROLLER GRINDER OPERATOR Pulse 74 08/16/2021 1:45 PM RUBBER ROLLER GRINDER OPERATOR Temperature 36.6 ??C (97.8 ??F) 08/16/2021 11:[address] Respiratory Rate 12 08/16/2021 1:45 PM RUBBER ROLLER GRINDER OPERATOR Oxygen Saturation 99% 08/16/2021 1:45 PM RUBBER ROLLER GRINDER OPERATOR Inhaled Oxygen Concentration - - Weight - - Height - - Body Mass Index - - documented in this encounter Discharge Instructions * Discharge Instructions* Brittny Mar PA-C - 08/15/2021 12:28 PM RUBBER ROLLER GRINDER OPERATOR Post Ablation Thank you for choosing [facility] Vascular [facility] to care for your health care [...] you have any other questions or concerns. [phone] Heart patients: Weigh yourself every day at [...] AM . The office is located at [facility] Heart and Vascular, second floor of [facility], [facility] [address] [facility], [address]. Call [phone] if you need to reschedule. ER ROLLER GRINDER OPERATOR documented in this encounter Medications at Time [...] THORACOTOMY performed by Edinson Ferrell MD at [facility] OR ??? HX TONSILLECTOMY ??? HX TRIGGER FINGER REPAIR ??? SD RMVL LUNG OTHER THAN PNEUMONECTOMY 1 LOBE LOBECT Right 08/31/2020 LUNG LOBECTOMY performed by Edinson Ferrell MD at [facility] OR Family History Problem Relation Name Age [...] BP high Add Dilt CD 240mg daily Cont Gail Thank you very much for giving us a chance to participate int the care of your patient. Please do not hesitate to contact us if we can be of further assistance. This note was dictated using Catchafire[employer] speech recognition and was not edited for errors. ER ROLLER GRINDER OPERATOR documented in this encounter Miscellaneous Notes * Care Plan - Kelly Lewis RN - 08/16/2021 5:39 PM CST Bilateral groins stable post procedure/bedrest/ambulation x4. Plan of care reviewed. Discharge instructions given. Verbalized understanding. Escorted to front of hospital per w/c per RN ER ROLLER GRINDER OPERATOR * Care Plan - Celeste Queen RN - 08/16/2021 11:19 AM CST Potential for pain related to surgical/procedural intervention Interventions: Assess level of pain/comfort utilizing verbal/nonverbal pain scales; assess culturalor muslim indicators attached to pain; administer pain medications [...] adaptive coping strategies Outcome Met: calm ER ROLLER GRINDER OPERATOR documented in this encounter Plan of Treatment Upcoming Encounters Date Type Department Care Team (Late st Contact Info) Description 2024 11:00 AM RUBBER ROLLER GRINDER OPERATOR Appointment [facility] [address] [place] [address] 07/21/2024 9:45 AM RUBBER ROLLER GRINDER OPERATOR Appointment [facility] Mobile Battery Technician [address] [place] [address] Kiel Vasquez MD [address] [facility] [address] [place] [address] 07/21/2024 9:53 AM RUBBER ROLLER GRINDER OPERATOR Hospital Encounter [facility] Mobile Battery Technician [address] [place] [address] Kiel Vasquez MD [address] [facility] [address] [place] [address] Paroxysmal A-fib 07/21/2024 9:53 AM RUBBER ROLLER GRINDER OPERATOR - 07/21/2024 11:46 AM RUBBER ROLLER GRINDER OPERATOR Surgery [facility] Mobile Battery Technician [address] [place] [address] Kiel Vasquez MD [address] [facility] [address] [place] [address] Left atrial appendage closure percutaneous 07/28/2024 8:30 AM RUBBER ROLLER GRINDER OPERATOR Office Visit [facility] Oncology and Hematology - [place] [address] [facility] [address] [place] [address] Nahid Hickman MD [address] [facility] [address] [place] [id number] 09/09/2024 1:00 PM CDT Office Visit [facility] Heart and Vascular At [address] [place] [address] Kiel Vasquez MD [facility] [address] [facility] [address] [place] [address] 12/16/2024 11:00 AM CDT Office Visit [facility] HEART AND VASCULAR EP AT [address] [place] [address] Demetrius Bowling DNP [facility] [address] [facility] [address] [place] [address] 02/05/2025 10:45 AM CDT Telephone Check Up [facility] Heart and Vascular At [address] [place] [address] 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 FNP [facility] [place] [address] documented as of this encounter Procedures Procedure Name Priority Date/Time Associated Diagnosis Comments TELEMETRY REPORT 08/17/2021 4:43 PM RUBBER ROLLER GRINDER OPERATOR PVI ABLATION Routine 08/16/2021 10:40 AM RUBBER ROLLER GRINDER OPERATOR POC ACTIVATED CLOTTING TIME Routine 08/16/2021 9:55 AM RUBBER ROLLER GRINDER OPERATOR POC ACTIVATED CLOTTING TIME Routine 08/16/2021 9:17 AM RUBBER ROLLER GRINDER OPERATOR ECHO TRANSESOPHAGEAL W DOPPLER AND COLOR FLOW Routine 08/16/2021 8:54 AM RUBBER ROLLER GRINDER OPERATOR Paroxysmal atrial fibrillation POC LACTIC ACID Routine 08/16/2021 7:15 AM RUBBER ROLLER GRINDER OPERATOR BLOOD GAS,(INCL. H+H, LYTES, GLUC) Routine 08/16/2021 7:15 AM RUBBER ROLLER GRINDER OPERATOR OXIMETRY Routine 08/16/2021 7:15 AM RUBBER ROLLER GRINDER OPERATOR METHEMOGLOBIN QUANTITATIVE Routine 08/16/2021 7:15 AM RUBBER ROLLER GRINDER OPERATOR CARBOXYHEMOGLOBIN Routine 08/16/2021 7:1 5 AM RUBBER ROLLER GRINDER OPERATOR DIFFERENTIAL, MANUAL Stat 08/16/2021 6:02 AM RUBBER ROLLER GRINDER OPERATOR CBC WITH DIFFERENTIAL Stat 08/16/2021 6:02 AM RUBBER ROLLER GRINDER OPERATOR PROTIME-INR Stat 08/16/2021 6:02 AM RUBBER ROLLER GRINDER OPERATOR TYPE AND SCREEN Stat 08/16/2021 6:02 AM RUBBER ROLLER GRINDER OPERATOR MAGNESIUM LEVEL Stat 08/16/2021 6:02 AM RUBBER ROLLER GRINDER OPERATOR BASIC METABOLIC PANEL Stat 08/16/2021 6:02 AM RUBBER ROLLER GRINDER OPERATOR documented in this encounter Results * TELEMETRY REPORT (08/17/2021 4:43 PM RUBBER ROLLER GRINDER OPERATOR) Provider Scanning ECG ORDERABLES * PVI ABLATION (08/16/2021 10:40 AM RUBBER ROLLER GRINDER OPERATOR) Narrative [facility] - 08/16/2021 12:23 PM RUBBER ROLLER GRINDER OPERATOR Electrophysiology Study and AF Ablation Procedure Note [...] is 33 minutes and 52 seconds. Melita Woods MD CUP EP ORDERABLES Performing Organization Address [facility] Co de Phone Number [facility] * POC ACTIVATED CLOTTING TIME (08/16/2021 9:55 AM RUBBER ROLLER GRINDER OPERATOR) ACTIVATED CLOTTING TIME POC 271 sec 08/16/2021 9:55 AM RUBBER ROLLER GRINDER OPERATOR [facility] Comment: ACT value for sheath pull has been established to be < or = to 140. (See also Nursing Procedures for sheath pull in related nursing areas) Note: This sheath pull range was established at [facility] and effective 12/08/2005. Blood 08/16/2021 9:55 AM RUBBER ROLLER GRINDER OPERATOR 08/16/2021 11:17 AM RUBBER ROLLER GRINDER OPERATOR Melita Woods MD POINT OF CARE JASMINE ASHLYN Performing Organization Address [facility] Co de Phone Number [facility] CLIA# [id number] [address] [address] * POC ACTIVATED CLOTTING TIME (08/16/2021 9:17 AM RUBBER ROLLER GRINDER OPERATOR) ACTIVATED CLOTTING TIME POC 301 sec 08/16/2021 9:17 AM RUBBER ROLLER GRINDER OPERATOR [facility] Comment: ACT value for sheath pull has been established to be < or = to 140. (See also Nursing Procedures for sheath pull in related nursing areas) Note: This sheath pull range was established at [facility] and effective 12/08/2005. Blood 08/16/2021 9:17 AM RUBBER ROLLER GRINDER OPERATOR 08/16/2021 11:17 AM RUBBER ROLLER GRINDER OPERATOR Melita Woods MD POINT OF CARE JASMINE GOLDBERG Performing Organization Address [facility] Co de Phone Number [facility] CLIA# [id number] [address] [place] [address] * ECHO TRANSESOPHAGEAL W DOPPLER AND COLOR FLOW (08/16/2021 8:54 AM RUBBER ROLLER GRINDER OPERATOR) Narrative 08/16/2021 8:56 AM RUBBER ROLLER GRINDER OPERATOR Order information only. ??Exam was auto-finalized. ?? Melita Woods MD ORDERABLES * POC LACTIC ACID (08/16/2021 7:15 AM RUBBER ROLLER GRINDER OPERATOR) LACTIC ACID POC 1.5 <=2.0 mmol/L 08/16/2021 7:15 AM RUBBER ROLLER GRINDER OPERATOR [facility] SPECIMEN SOURCE, GASES POC Arterial 08/16/2021 7:15 AM RUBBER ROLLER GRINDER OPERATOR [facility] COMMENT, GASES POC RN/MD NOTIFIED 08/16/2021 7:15 AM [facility] Blood 08/16/2021 7:15 AM RUBBER ROLLER GRINDER OPERATOR 08/16/2021 7:17 AM RUBBER ROLLER GRINDER OPERATOR Melita Woods MD POINT OF CARE [facility] Organization Address City/State/ZIP Co de Phone Number [facility]# [id number] [address] [facility] [place] [address] * (ABNORMAL) OXIMETRY (08/16/2021 7:15 AM RUBBER ROLLER GRINDER OPERATOR) OXYHEMOGLOBIN POC 95.8 94.0 - 97.0 % 08/16/2021 7:15 AM [facility] HEMOGLOBIN POC 10.0(L) 11.8 - 14.8 g/dL 08/16/2021 7:15 AM [facility] O2 SATURATION POC 98 94 - 98 % 022 7:15 AM [facility] SPECIMEN SOURCE, GASES POC Arterial 08/16/2021 7:15 AM [facility] SAMPLE SITE, GASES POC N-SY 08/16/2021 7:15 AM RUBBER ROLLER GRINDER OPERATOR [facility] COMMENT, GASES POC RN/MD NOTIFIED 08/16/2021 7:15 AM RUBBER ROLLER GRINDER OPERATOR [facility] Blood 08/16/2021 7:15 AM RUBBER ROLLER GRINDER OPERATOR 08/16/2021 7:17 AM RUBBER ROLLER GRINDER OPERATOR Melita Woods MD ABG ORDERABLES Performing Organization Address [facility] de Phone Number [facility] [id number] [address] [place] [address] * (ABNORMAL) METHEMOGLOBIN QUANTITATIVE (08/16/2021 7:15 AM RUBBER ROLLER GRINDER OPERATOR) METHEMOGLOBIN QUANT POC 0.9 <=1.5 % 08/16/2021 7:15 AM RUBBER ROLLER GRINDER OPERATOR [facility] HEMOGLOBIN POC 10.0(L) 11.8 - 14.8 g/dL 08/16/2021 7:15 AM RUBBER ROLLER GRINDER OPERATOR [facility] COMMENT, GASES POC RN/MD NOTIFIED 08/16/2021 7:15 AM RUBBER ROLLER GRINDER OPERATOR [facility] Blood 08/16/2021 7:15 AM RUBBER ROLLER GRINDER OPERATOR 08/16/2021 7:17 AM RUBBER ROLLER GRINDER OPERATOR Melita Woods MD ABG ORDERABLES Performing Organization Address [facility] Co de Phone Number [facility] [facility]# [id number] [address] [place] [address] * (ABNORMAL) CARBOXYHEMOGLOBIN (08/16/2021 7:15 AM RUBBER ROLLER GRINDER OPERATOR) CARBOXYHEMOGLOBIN POC 1.1 <=7.0 % 08/16/2021 7:15 AM RUBBER ROLLER GRINDER OPERATOR [facility] HEMOGLOBIN POC 10.0(L) 11.8 - 14.8 g/dL 08/16/2021 7:15 AM RUBBER ROLLER GRINDER OPERATOR [facility] COMMENT, GASES POC RN/MD NOTIFIED 08/16/2021 7:15 AM RUBBER ROLLER GRINDER OPERATOR [facility] Blood 08/16/2021 7:15 AM RUBBER ROLLER GRINDER OPERATOR 08/16/2021 7:17 AM RUBBER ROLLER GRINDER OPERATOR Melita Woods MD ABG ORDERABLES [facility]# [id number] [address] [facility] [address] [address] * (ABNORMAL) BLOOD GAS,(INCL. H+H, LYTES, GLUC) (08/16/2021 7:15 AM RUBBER ROLLER GRINDER OPERATOR) PH BLOOD POC 7.42 7.35 - 7.45 08/16/2021 7:15 AM [facility] PCO2 POC 41 35 - 48 mm Hg 08/16/2021 7:15 AM [facility] PO2 POC 84 83 - 108 mm Hg 08/16/2021 7:15 AM [facility] TCO2 (CALC) POC 28(H) 19 - 24 mmol/L 08/16/2021 7:15 AM [facility] HCO3 (CALC) POC 27(H) 22 - 26 mmol/L 08/16/2021 7:15 AM [facility] O2 SATURATION POC 98 94 - 98 % 08/16/2021 7:15 AM [facility] BASE EXCESS POC 2 -2 - 3 mmol/L 08/16/2021 7:15 AM [facility] HEMOGLOBIN POC 10.0(L) 11.8 - 14.8 g/dL 08/16/2021 7:15 AM [facility] HEMATOCRIT POC 30(L) 35 - 44 % 08/16/2021 7:15 AM [facility] Comment:Estimated Value GLUCOSE POC 113(H) 74 - 99 mg/dL 08/16/2021 7:15 AM [facility] SODIUM POC 138 135 - 145 mmol/L 08/16/2021 7:15 AM [facility] POTASSIUM POC 3.4(L) 3.5 - 4.9 mmol/L 08/16/2021 7:15 AM [facility] CHLORIDE POC 105 98 - 107 mmol/L 08/16/2021 7:15 AM [facility] CALCIUM IONIZED POC 5.0 4.7 - 5.1 mg/dL 08/16/2021 7:15 AM [facility] PH TEMP CORRECT 7.42 7.35 - 7.45 08/17/19 7:15 AM [facility] PCO2 TEMP CORRECT 41 35 - 48 mm Hg 08/16/2021 7:15 AM [facility] PO2 TEMP CORRECT 84 83 - 108 mm Hg 08/16/2021 7:15 AM [facility] SPECIMEN SOURCE, GASES POC Arterial 08/16/2021 7:15 AM [facility] PATIENT'S TEMPERATURE POC 37.0 degrees 08/16/2021 7:15 AM [facility] COMMENT, GASES POC RN/MD NOTIFIED 08/16/2021 7:15 AM [facility] Blood, arterial 08/16/2021 7 :15 AM RUBBER ROLLER GRINDER OPERATOR 08/16/2021 7:17 AM RUBBER ROLLER GRINDER OPERATOR Melita Woods MD ABG ORDERABLES [facility]# [id number] [address] [place] [address] * (ABNORMAL) MANUAL DIFFERENTIAL (08/16/2021 6:02 AM RUBBER ROLLER GRINDER OPERATOR) SEGMENTED NEUTROPHILS 44 % 08/16/2021 6:58 AM [facility] LYMPHOCYTES RELATIVE 25(L) 43 - 53 % 08/16/2021 6:58 AM [facility] ATYPICAL LYMPHOCYTES RELATIVE 7(H) 0 - 5 % 08/16/2021 6:58 AM [facility] MONOCYTES RELATIVE 22 % 08/16/2021 6:58 AM [facility] EOSINOPHILS RELATIVE 1 % 08/16/2021 6:58 AM [facility] LABOR[facility]ORY [facility] BASOPHILS RELATIVE 1 % 08/16/2021 6:58 AM [facility] NEUTROPHILS ABSOLUTE COUNT 3.17 1.90 - 7.00 K/uL 08/16/2021 6:58 AM [facility] LYMPHOCYTES ABSOLUTE 1.78 0.70 - 4.50 K/uL 08/16/2021 6:58 AM [facility] MONOCYTES ABSOLUTE 1.59(H) 0.10 - 1.30 K/uL 08/16/2021 6:58 AM [facility] EOSINOPHILS ABSOLUTE 0.07 0.00 - 0.70 K/uL 08/16/2021 6:58 AM [facility] BASOPHILS ABSOLUTE 0.07 0.00 - 0.20 K/uL 08/16/2021 6:58 AM [facility] TOTAL CELLS COUNTED IN DIFF 109 08/16/2021 6:58 AM [facility] RBC MORPHOLOGY Normal 08/16/2021 6:58 AM [facility] PLATELET EST. Consistent w Count 08/16/2021 6:[address] [facility] [employer] [facility] Blood Venipuncture / Unknown 08/16/2021 6:02 AM RUBBER ROLLER GRINDER OPERATOR 08/16/2021 6:09 AM RUBBER ROLLER GRINDER OPERATOR Melita Woods MD HEMATOLOGY ORDERA BLES COM [facility]# [id number] 5 [facility] [address] * (ABNORMAL) MAGNESIUM LEVEL (08/16/2021 6:02 AM RUBBER ROLLER GRINDER OPERATOR) MAGNESIUM 2.6(H) 1.6 - 2.4 mg/dL 08/16/2021 6:[address] [facility] [employer] Blood Venipuncture / Unknown 08/16/2021 6:02 AM RUBBER ROLLER GRINDER OPERATOR 08/16/2021 6:09 AM RUBBER ROLLER GRINDER OPERATOR Melita Woods MD CHEMISTRY ORDERAB LES [facility] CLIA# [id number] [address] [place] [address] * TYPE AND SCREEN (08/16/2021 6:02 AM RUBBER ROLLER GRINDER OPERATOR) ABO GROUP O 08/16/2021 6:57 AM RUBBER ROLLER GRINDER OPERATOR [employer] [facility]ORAT[facility] SERVICES -- [facility] RH (D) TYPE Positive 08/16/2021 6:57 AM RUBBER ROLLER GRINDER OPERATOR [employer] [facility] SERVICES -- [facility] ANTIBODY SCREEN Negative 08/16/2021 6:57 AM RUBBER ROLLER GRINDER OPERATOR [employer] [facility]ORAT[facility] SERVICES -- [facility] Blood Venipuncture / Unknown 08/16/2021 6:02 AM RUBBER ROLLER GRINDER OPERATOR 08/16/2021 6:09 AM RUBBER ROLLER GRINDER OPERATOR Melita Woods MD BLOOD BANK ORDERA BLES Performing Organization Address City/[facility]/ZIP Co de Phone Number [facility] SERVICES -- [facility] CLBLAYNE# [id number] [address] [place] [address] * (ABNORMAL) BASIC METABOLIC PANEL (08/16/2021 6:02 AM RUBBER ROLLER GRINDER OPERATOR) SODIUM 143 136 - 145 mmol/L 08/16/2021 6:46 AM RUBBER ROLLER GRINDER OPERATOR [employer] [facility]ORATORY SERVICES - [facility] POTASSIUM 3.8 3.5 - 5.0 mmol/L 08/16/2021 6:46 AM RUBBER ROLLER GRINDER OPERATOR [employer] LABORATORY SERVICES - . [facility] CHLORIDE 104 98 - 107 mmol/L 08/16/2021 6:46 AM RUBBER ROLLER GRINDER OPERATOR [employer] LABORATORY SERVICES - . [facility] CO2 25 22 - 29 mmol/L 08/16/2021 6:46 AM RUBBER ROLLER GRINDER OPERATOR [employer] LABORATORY SERVICES - . [facility] CALCIUM 9.7 8.6 - 10.2 mg/dL 08/16/2021 6:46 AM RUBBER ROLLER GRINDER OPERATOR [employer] [facility]ORATORY SERVICES - . [facility] BUN 25(H) 8 - 23 mg/dL 08/16/2021 6:46 AM RUBBER ROLLER GRINDER OPERATOR [employer] LABORATORY SERVICES - . [facility] CREATININE 1.31(H) 0.51 - 0.95 mg/dL 08/16/2021 6:46 AM [facility] Comment:The GFR result is no t clinically significant on patients <18 or >70 years of age. GLUCOSE 112(H) 74 - 99 mg/dL 08/16/2021 6:46 AM [facility] GFR 42 mL/min/1. 73 sq meter 08/16/2021 6:46 AM [facility] Comment: eGFR calculated with 2020 CKD-EPI equation. ??Vegetarian diet, extremely high or low muscle mass, and may affect results. ??Cystatin C with Glomerular Filtration Rate is a suitable alternative for these patients. The National Kidney Foundation and the [place] Society of Nephrology (NKF-ASN) recommends using the [...] 8 - 16 mmol/L 08/16/2021 6:46 AM [facility] Blood Venipuncture / Unknown 08/16/2021 6:02 AM RUBBER ROLLER GRINDER OPERATOR 08/16/2021 6:09 AM RUBBER ROLLER GRINDER OPERATOR Melita Woods MD CHEMISTRY ORDERAB LES [facility] CLIA# [id number] [address] [facility] [address] [address] * (ABNORMAL) CBC WITH DIFFERENTIAL (08/16/2021 6:02 AM RUBBER ROLLER GRINDER OPERATOR) Pathologist [facility] WBC 7.2 4.0 - 9.8 K/uL 08/16/2021 6:20 AM [facility] RBC 3.57(L) 3.90 - 4.90 M/uL 08/16/2021 6:20 AM [facility] HEMOGLOBIN 10.2(L) 11.8 - 14.8 g/dL 08/16/2021 6:20 AM [facility] HEMATOCRIT 32.6(L) 35.5 - 44.0 % 08/16/2021 6:20 AM [facility] MCV 91.3 82.0 - 99.0 fL 08/16/2021 6:20 AM [facility] [employer] [facility] MCH 28.6 27.2 - 32.6 pg 08/16/2021 6:20 AM [facility] [employer] MCHC 31.3(L) 31.5 - 35.5 g/dL 08/16/2021 6:20 AM [facility] [employer] [facility] RDW 14.6(H) 11.5 - 14.5 % 08/16/2021 6:20 AM [facility] [employer] [facility] RDW-STDEV 49.0(H) 37.1 - 48.7 fL 08/16/2021 6:20 AM [facility] [employer] [facility] PLATELETS 224 140 - 350 K/uL 08/16/2021 6:20 AM [facility] [employer] [facility] MPV 10.4 9.3 - 12.4 fL 08/16/2021 6:20 AM [facility] [employer] Blood Venipuncture / Unknown 08/16/2021 6:02 AM [employer] 08/16/2021 6:[address] [facility] Melita Woods MD HEMATOLOGY [facility] [employer] [facility] CLIA# [id number] [facility] ST[facility] [place] [id number] * (ABNORMAL) PROTIME-INR (08/16/2021 6:02 AM [employer] OPERATOR) PROTIME 16.2(H) 12.7 - 15.1 Seconds 08/16/2021 6:31 AM [facility] INR 1.2(H) 0.9 - 1.1 08/16/2021 6:31 AM [facility] [employer] [facility] Blood Venipuncture / Unknown 08/16/2021 6:02 AM [employer] OPERATOR 08/16/2021 6:09 AM RUBBER ROLLER GRINDER OPERATOR Narrative [facility] - 08/16/2021 6:31 AM RUBBER ROLLER GRINDER OPERATOR INR Therapeutic Range: Adult: ?? 2.0 - 3.0 for pulmonary embolism or prophylaxis against venous ?thrombosis or systemic embolization. 2.0 - 3.0 for patients with tissue heart valves. 2.5 - 3.5 for patients with mechanical heart valves or post IA. Pediatric ??(12 years and under): 1.5 - 3.0 Although the target range in children is not well established, ?INR values of 1.5 - 3.0 are recommended for most patients. ?Higher values have been used in children with prosthetic ?cardiac valves and hereditary clotting disorders. [place] (<3 days) therapeutic ranges have not been established. Melita Woods MD HEMATOLOGY [facility]# [id number] [address] [place] [address] documented in this encounter Visit Diagnoses Diagnosis [...] Non-valvular A Fib Given 08/16/2021 2:26 PM RUBBER ROLLER GRINDER OPERATOR 5 mg atropine injection 0.5 mg 0.5 mg, IV, EVERY 5 MINUTES PRN, 3 doses, Starting on Sun08/16/21 at 1300, Until Sun08/16/21 at 194, Heart Rate, Bradycardia, Routine, Post-Procedure (Invasive Cardiology) diphenhydrAMINE (BENADRYL) injection 12.5 mg 12.5 mg, IV, POST-PROCEDURE ONCE PRN, 1 dose, Starting on Sun08/16/21 at 0728, Until Sun08/16/21 at 194, Nausea/Emesis, Routine, PACU fentaNYL PF (SUBLIMAZE) 50 mcg/mL injection 25 mcg 25 mcg, IV, POST-PROCEDURE Q 3 MINUTES PRN, 4 doses, Starting on Sun08/16/21 at 0728, Until Sun08/16/21 at 194, Pain, Routine, PACU furosemide (LASIX) injection 40 mg 40 mg, IV, ONE TIME ONLY, 1 dose, On Sun08/16/21 at 1230, Routine Given 08/16/2021 2:26 PM RUBBER ROLLER GRINDER OPERATOR 40 mg heparin 1,000 Units in sodium chloride 0.9% 1,000 mL solution Irrigation, INTRA-PROCEDURE ONCE, 1 dose, Starting on Sun08/16/21 at 0732, Until Sun08/16/21 at 1941, Routine lactated ringers infusion IV, at 30 mL/hr, POST-PROCEDURE CONTINUOUS, Starting on Sun08/16/21 at 0730, Until Sun08/16/21 at 1941, Routine, PACU naloxone (NARCAN) 0.4 mg/mL injection 0.1 mg 0.1 mg, IV, SEE ADMIN INSTRUCTIONS, Starting on Sun08/16/21 at 0728, Until Sun08/16/21 at 194, Routine, PACU naloxone (NARCAN) 0.4 mg/mL injection 0.1 mg 0.1 mg, IV, SEE ADMIN INSTRUCTIONS, Starting on Sun08/16/21 at 1300, Until Sun08/16/21 at 194, Routine, Post-Procedure (Invasive Cardiology) ondansetron (ZOFRAN) 4 mg/2 mL injection 4 mg 4 mg, IV, POST-PROCEDURE ONCE PRN, 1 dose, Starting on Sun08/16/21 at 0728, Until Sun08/16/21 at 194, Nausea/Emesis, Routine, PACU pantoprazole (PROTONIX) tablet 40 mg 40 mg, Oral, DAILY BEFORE BREAKFAST, First dose on Sun08/16/21 at 1230, Until Discontinued, Routine, Indication: Erosive esophagitis Given 08/16/2021 2:26 PM RUBBER ROLLER GRINDER OPERATOR 40 mg documented in this encounter Active and Recently Administered Medications Times are shown in RUBBER ROLLER GRINDER OPERATOR. Scheduled Medication Order 08/14/2021 08/15/2021 08/16/2021 apixaban [...] PACU documented in this encounter Care Teams Shoulder Puncher Relationship Specialty Start Date End Date Aliza Bain MD [address] [place] [address] PCP - General Family Practice 07/29/20 11/21/21 documented as of this encounter
--- OUTSIDE RECORDS SUMMARY | 2024-07-01 00:43 | XMS_ITS | Encounter Summary ---
Author Organization [facility] Address [address] [place] [address] Care Team Providers Care Manager Golf Name Role Phone Aliza Bain MD Primary Care Provider Encounter Details Date Type Department Care Team (Latest Contact Info) Description 08/16/2021 5:46 AM ARTIFACTS CONSERVATOR - 08/16/2021 11:59 PM ARTIFACTS CONSERVATOR Hospital Encounter [facility] Laboratory Services [address], [address] [place] [address] Melita Woods MD NO ADDRESS ON FILE [...] any clubs o r organizations such as mandaen groups, unions, fraternal or athletic groups, or [...] COVID-19? No / Unsure 08/16/2021 5:34 AM ARTIFACTS CONSERVATOR documented as of this encounter Medications at [...] st Contact Info) Description 2024 11:00 AM ARTIFACTS CONSERVATOR Appointment [facility] S [facility] [address] [place] [address] 07/21/2024 9:45 AM ARTIFACTS CONSERVATOR Appointment [facility] Calender Wind Up Tender [address] [place] [address] Kiel Vasquez MD [address] [facility] [address] [place] [address] 07/21/2024 9:53 AM ARTIFACTS CONSERVATOR Hospital Encounter [facility] Calender Wind Up Tender [address] [place] [address] Kiel Vasquez MD [address] [facility] [address] [place] [address] Paroxysmal A-fib 07/21/2024 9:53 AM ARTIFACTS CONSERVATOR - 07/21/2024 11:46 AM ARTIFACTS CONSERVATOR Surgery [facility] Calender Wind Up Tender [address] [place] [address] Kiel Vasquez MD [address] [facility] [address] [place] [address] Left atrial appendage closure percutaneous 07/28/2024 8:30 AM ARTIFACTS CONSERVATOR Office Visit [facility] Oncology and Hematology - [place] [address] [place] [address] Nahid Hickman MD [address] [facility] [address] [place] [address] 09/09/2024 1:00 PM CDT Office Visit [facility] Heart and Vascular At [address] [place] [address] Kiel Vasquez MD [facility] [address] [facility] [address] [place] [address] 12/16/2024 11:00 AM CDT Office Visit [facility] HEART AND VASCULAR EP AT [address] [place] [address] Demetrius Bowling DNP [facility] [address] [facility] [address] [place] [address] 02/05/2025 10:45 AM CDT Telephone Check Up [facility] Heart and Vascular At [address] [place] [address] 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 FNP [address] [place] [address] documented as of this encounter Visit Diagnoses Not on filedocumented in this encounter Care Teams Manager Golf Relationship Specialty Start Date End Date Aliza Bain MD [address] [place] [address] PCP - General Family Practice 07/29/20 11/21/21 documented as of this encounter
--- OUTSIDE RECORDS SUMMARY | 2024-07-01 00:43 | XMS_ITS | Encounter Summary ---
Author Organization [facility] Address [address] [facility] Attn: Epic Prelude ADT STU POLK [address] Care Team Providers Care Registered Appraiser Name Role Phone Aliza Bain MD Primary Care Provider Encounter Details Date Type Department Care Team (Latest Contact Info) Description 11/23/2021 Travel Social History Tobacco Use Types Packs/Day [...] any clubs o r organizations such as bahai groups, unions, fraternal or athletic groups, or [...] st Contact Info) Description 2024 11:00 AM SCIENCE CONSULTANT Appointment [facility] [address] [place] [address] 07/21/2024 9:45 AM SCIENCE CONSULTANT Appointment [facility] Dietary Service Aide [address] [place] [phone] Kiel Vasquez MD [address] [place] [address] 07/21/2024 9:53 AM SCIENCE CONSULTANT Hospital Encounter [facility] Dietary Service Aide [address] [place] [address] Kiel Vasquez MD [address] [place] [address] Jesse Lackey-fib 07/21/2024 9:53 AM SCIENCE CONSULTANT - 07/21/2024 11:46 AM SCIENCE CONSULTANT Surgery [facility] Dietary Service Aide [address] [place] [address] Kiel Vasquez MD [address] [place] [address] [address] [place] [address] Left atrial appendage closure percutaneous 07/28/2024 8:30 AM SCIENCE CONSULTANT Office Visit [facility] Oncology and Hematology - [place] [address] [facility] [address] [place] [address] Nahid Hickman MD [address] [facility] [address] [place] [address] 09/09/2024 1:00 PM CDT Office Visit [facility] Heart and Vascular At [address] [place] [address] Kiel Vasquez MD [address] [place] [address] 2014 [place] [address] 12/16/2024 11:00 AM CDT Office Visit [facility] HEART AND VASCULAR EP AT [address] [place] [address] Demetrius Bowling DNP [address] [place] [address] [address] [place] [address] 02/05/2025 10:45 AM CDT Telephone Check Up [facility] Heart and Vascular At [address] [place] [address] 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 FNP [address] [place] [address] documented as of this encounter Visit Diagnoses Not on filedocumented in this encounter Care Teams Registered Appraiser Relationship Specialty Start Date End Date Aliza Bain MD [address] [place] [address] PCP - General Family Practice 11/22/21 documented as of this encounter
--- OUTSIDE RECORDS SUMMARY | 2024-07-01 00:43 | XMS_ITS | Encounter Summary ---
Author Organization [facility] Address [address] [place] [address] Care Team Providers Care Bobbin Hauler Name Role Phone Aliza Bain MD Primary Care Provider Reason for Visit * Reason Onset Date Comments Scheduled ablation 07/11/2021 Encounter Details Date Type Department Care Team (Late st Contact Info) Description 07/11/2021 Telephone [facility] Heart and Vascular At [address] [place] [address] Melita Woods MD NO ADDRESS ON FILE Scheduled ablation Social History Tobacco Use Types Packs/Day [...] and Family Not on file 07/29/2020 Attends [employer] Not on file 07/29 Do you [...] COVID-19? Unable to assess 07/01/2021 11:19 AM VET ASSISTANT documented as of this encounter Miscellaneous Notes * Telephone Encounter - Renetta John RN - 07/11/2021 12:10 PM VET ASSISTANT Spoke with Cassandra regarding her ablation. Informed of need to change scheduled date of 08/10 d/t scheduling conflict for Dr. Woods. Pt verb understanding and procedure rescheduled for 08/16 at 7:30 AM. ASSISTANT documented in this encounter Plan of Treatment Upcoming Encounters Date Type Department Care Team (Late st Contact Info) Description 2024 11:00 AM VET ASSISTANT Appointment [facility] [address] [place] [address] 07/21/2024 9:45 AM VET ASSISTANT Appointment [facility] Gift Manager [address] [place] [address] Kiel Vasquez MD [address] [facility] 2014 [place] [phone] 07/21/2024 9:53 AM VET ASSISTANT Hospital Encounter [facility] Gift Manager [address] [place] [address] Kiel Vasquez MD [facility] S [facility] 2014 [place] [address] Paroxysmal A-fib 07/21/2024 9:53 AM VET ASSISTANT - 07/21/2024 11:46 AM VET ASSISTANT Surgery [facility] Gift Manager [address] [place] [address] Kiel Vasquez MD [facility] S [facility] [address] [place] [address] Left atrial appendage closure percutaneous 07/28/2024 8:30 AM VET ASSISTANT Office Visit [facility] Oncology and Hematology - [place] [address] [place] [phone] Nahid Hickman MD [address] [address] 09/09/2024 1:00 PM CDT Office Visit [facility] Heart and Vascular At [address] [place] [address] Kiel Vasquez MD [facility] S [facility] 2014 [place] [address] 12/16/2024 11:00 AM CDT Office Visit [facility] HEART AND VASCULAR EP AT [address] [place] [address] Demetrius Bowling DNP [address] [place], [place] [address] [place] [address] 02/05/2025 10:45 AM CDT Telephone Check Up [facility] Heart and Vascular At [facility] [address] [place] [address] 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, CAT [address] [place] [address] documented as of this encounter Visit Diagnoses Not on filedocumented in this encounter Care Teams Bobbin Hauler Relationship Specialty Start Date End Date Aliza Bain MD [address] [place] [address] PCP - General Family Practice 07/29/20 11/21/21 documented as of this encounter
--- OUTSIDE RECORDS SUMMARY | 2024-07-01 00:43 | XMS_ITS | Encounter Summary ---
Author Organization [facility] Address [address] [place] [address] Care Team Providers Care Preschool Director Name Role Phone Aliza Bain MD Primary Care Provider Reason for Visit * Reason Onset Date Comments Medication Question 08/05/2021 Encounter Details Date Type Department Care Team (Late st Contact Info) Description 08/05/2021 Telephone [facility] Heart and Vascular [address] [place] [address] Kiel Vasquez MD [address] [facility] 2014 [place] [address] Medication Question Social History Tobacco [...] and Family Not on file 07/29/2020 Attends [employer] Not on file 07/29 Do you [...] Telephone Encounter - Moni Curry RN - 08/05/2021 3:58 PM CST Spoke with patient about concerns with diltiazem. Will contact Dr. Woods's nurse for clarification. RE POLISHER * Telephone Encounter - Iam Denney EMT-P - 08/05/2021 3:39 PM SUTURE POLISHER Patient has a question regarding her Diltiazem. She would like someone to call her. [phone] RE POLISHER documented in this encounter Plan of Treatment Upcoming Encounters Date Type Department Care Team (Late st Contact Info) Description 2024 11:00 AM SUTURE POLISHER Appointment [facility] Juan Laguerre [address] [place] [address] 07/21/2024 9:45 AM SUTURE POLISHER Appointment [facility] Leak Inspector [address] [place] [address] Kiel Vasquez MD [address] [facility] [address] [place] [address] 07/21/2024 9:53 AM SUTURE POLISHER Hospital Encounter [facility] Leak Inspector [address] [place] [address] Kiel Vasquez MD [address] [facility] 2014 [place] [address] Paroxysmal A-fib 07/21/2024 9:53 AM SUTURE POLISHER - 07/21/2024 11:46 AM SUTURE POLISHER Surgery [facility] Leak Inspector [address] [place] [address] Kiel Vasquez MD [address] [facility] 2014 [place] [address] Left atrial appendage closure percutaneous 07/28/2024 8:30 AM SUTURE POLISHER Office Visit [facility] Oncology and Hematology - [place] [address] [phone] Nahid Hickman MD [address] [facility] [address] [place] [address] 09/09/2024 1:00 PM CDT Office Visit [facility] Heart and Vascular At [facility] [address] [facility] [address] [place] [address] Kiel Vasquez MD [address] [facility] [address] [place] [address] 12/16/2024 11:00 AM CDT Office Visit [facility] HEART AND VASCULAR EP AT [facility] [address] [facility] [address] [place] [address] Demetrius Bowling DNP [address] [facility] [address] [place] [address] 02/05/2025 10:45 AM CDT Telephone Check Up [facility] Heart and Vascular At [facility] [address] [facility] [address] [place] [address] 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 FNP [address] [place] [address] documented as of this encounter Visit Diagnoses Not on filedocumented in this encounter Care Teams Preschool Director Relationship Specialty Start Date End Date Aliza Bain MD [address] [place] [address] PCP - General Family Practice 07/29/20 11/21/21 documented as of this encounter
--- OUTSIDE RECORDS SUMMARY | 2024-07-01 00:44 | XMS_ITS | Encounter Summary ---
Author Organization [facility] Address [address] [place] [address] Care Team Providers Care Mechanical Cad Designer Name Role Phone Aliza Bain MD Primary Care Provider Reason for Visit * Reason Onset Date Comments Medication Question 04/25/2021 Encounter Details Date Type Department Care Team (Late st Contact Info) Description 04/25/2021 Telephone [facility] Heart and Vascular At [place] [address] [facility] [address] [place] [address] Kiel Vasquez MD [address] [place] [address] [address] [place] [address] Medication Question Social History Tobacco [...] any clubs o r organizations such as congregational groups, unions, fraternal or athletic groups, or [...] have Coronavirus / COVID-19? No / Unsure 06/13/2021 3:54 PM PHOTOCOPIER TECHNICIAN documented as of this encounter Miscellaneous Notes * Telephone Encounter - Suyapa Anderson RN - 04/28/2021 10:01 AM PHOTOCOPIER TECHNICIAN Images from the original note were not included. LMOM w recs per dr. Vasquez CTS # given to schedule. Main clinic # given to schedule follow up appt. Kiel Vasquez MD You 12 hours ago (9:21 PM) Can we have her wear a 2 week event monitor then see me in clinic in 1 month? Thanks JG Message text You Kiel Vasquez MD 3 days ago Please advise thanks Routing comment OCOPIER TECHNICIAN * Telephone Encounter - Suyapa Anderson RN - 04/25/2021 3:35 PM PHOTOCOPIER TECHNICIAN Pt calling w 2 questions: 1. Can she hold eliquis for recommended routine colonoscopy 2. States she is noticing periods where it is hard to breath and then gets NAVARRO. Has checked BP during these episodes and notices it goes to 100/60, HR 101. These episodes happening at rest but has also felt w activity. States it feels like the first time the Afib occurred. Pt instructed will review w Dr. Vasquez. Advised that if Colonoscopy is for routine check to please delay scheduling at this time until cardiac symptoms evaluated. Verb understanding OCOPIER TECHNICIAN * Telephone Encounter - Lo Torres - 04/25/2021 2:15 PM CST Patient calling to ask if she can hold Eliquis for a week prior to her colonoscopy? Her bp and HR keeps fluctuating as well which is making her feel sick. Please call patient to discuss at [phone] thank you. OCOPIER TECHNICIAN documented in this encounter Plan of Treatment Upcoming Encounters Date Type Department Care Team (Late st Contact Info) Description 2024 11:00 AM PHOTOCOPIER TECHNICIAN Appointment [facility] [address] [place] [address] 07/21/2024 9:45 AM PHOTOCOPIER TECHNICIAN Appointment [facility] Metalizing Machine Operator Automatic [address] [place] [address] Kiel Vasquez MD [address] [place] [address] 07/21/2024 9:53 AM PHOTOCOPIER TECHNICIAN Hospital Encounter [facility] Metal[facility] Machine Operator Automatic [address] [place] [address] Kiel Vasquez MD [address] [place] [address] Paroxysmal A-fib 07/21/2024 9:53 AM PHOTOCOPIER TECHNICIAN - 07/21/2024 11:46 AM PHOTOCOPIER TECHNICIAN Surgery [facility] Metal[facility] Machine Operator Automatic [address] [place] [phone] Kiel Vasquez MD [address] [place] [address] 2014 [place] [phone] Left atrial appendage closure percutaneous 07/28/2024 8:30 AM PHOTOCOPIER TECHNICIAN Office Visit [facility] Oncology and Hematology - [place] [address] [facility] 200 [place] [address] Nahid Hickman MD [address] [facility] [address] [place] [address] 09/09/2024 1:00 PM CDT Office Visit [facility] Heart and Vascular At [address] [place] [address] Kiel Vasquez MD [address] [place] [address] 2014 [place] [phone] 12/16/2024 11:00 AM CDT Office Visit [facility] HEART AND VASCULAR EP AT [address] [place] [address] Demetrius Bowling DNP [address] [place] [address] 2014 [place] [address] 02/05/2025 10:45 AM CDT Telephone Check Up [facility] Heart and Vascular At [address] [place] [address] 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 FNP [address] [place] [phone] Scheduled Orders Name Type Priority Associated Diagnoses Orde r Schedule CARDIAC EVENT MONITOR Cardiac Services Routine New onset atrial fibrillation Palpitations Ordered: 04/28/2021 documented as of this encounter Visit Diagnoses Diagnosis New onset atrial fibrillation- Primary Atrial fibrillation Palpitations Paroxysmal atrial fibrillation- Primary Atrial fibrillation Paroxysmal A-fib Atrial fibrillation Paroxysmal A-fib Atrial fibrillation documented in this encounter Care Teams Mechanical Cad Designer Relationship Specialty Start Date End Date Aliza Bain MD [address] [place] [address] PCP - General Family Practice 07/29/20 11/21/21 documented as of this encounter
--- OUTSIDE RECORDS SUMMARY | 2024-07-01 00:44 | XMS_ITS | Encounter Summary ---
Author Organization [facility] Address [address] [facility] Attn: Epic Prelude ADT STU POLK [address] Care Team Providers Care Pulvi Mixer Operator Name Role Phone Aliza Bain MD Primary Care Provider Encounter Details Date Type Department Care Team (Latest Contact Info) Description 06/16/2021 Travel Social History Tobacco Use Types Packs/Day [...] and Family Not on file 07/29/2020 Attends [employer] Not on file 07/29 Do you [...] have Coronavirus / COVID-19? No / Unsure 06/16/2021 12:22 PM ASSISTED LIVING MANAGER documented as of this encounter Plan of Treatment Upcoming Encounters Date Type Department Care Team (Late st Contact Info) Description 2024 11:00 AM ASSISTED LIVING MANAGER Appointment [facility] S [facility] Manjit [address] [place] [address] 07/21/2024 9:45 AM ASSISTED LIVING MANAGER Appointment [facility] Detention Officer [address] [place] [phone] Kiel Vasquez MD [address] [facility] [address] [place] [address] 07/21/2024 9:53 AM ASSISTED LIVING MANAGER Hospital Encounter [facility] Detention Officer [address] [place] [address] Kiel Vasquez MD [address] [facility] 2014 [place] [address] Jesse Lackey-fib 07/21/2024 9:53 AM ASSISTED LIVING MANAGER - 07/21/2024 11:46 AM ASSISTED LIVING MANAGER Surgery [facility] Detention Officer [address] [place] [address] Kiel Vasquez MD [address] [place] [address] 2014 [place] [address] Left atrial appendage closure percutaneous 07/28/2024 8:30 AM ASSISTED LIVING MANAGER Office Visit [facility] Oncology and Hematology - [place] [address] [facility] 200 [place] [phone] Nahid Hickman MD [address] [facility] [address] [place] [address] 09/09/2024 1:00 PM CDT Office Visit [facility] Heart and Vascular At [address] 2014 [place] [address] Kiel Vasquez MD [address] [place] [address] 2014 [place] [address] 12/16/2024 11:00 AM CDT Office Visit [facility] HEART AND VASCULAR EP AT [address] 2014 [place] [address] Demetrius Bowling DNP [address] [place] [address] 2014 [place] [address] 02/05/2025 10:45 AM CDT Telephone Check Up [facility] Heart and Vascular At [address] 2014 [place] [address] 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 FNP [address] [place] [phone] documented as of this encounter Visit Diagnoses Not on filedocumented in this encounter Care Teams Pulvi Mixer Operator Relationship Specialty Start Date End Date Aliza Bain MD [address] [place] [address] PCP - General Family Practice 07/29/20 11/21/21 documented as of this encounter
--- OUTSIDE RECORDS SUMMARY | 2024-07-01 00:44 | XMS_ITS | Encounter Summary ---
Author Organization [facility] Address [address] [place] [address] Care Team Providers Care Windows Migration Technician Name Role Phone Aliza Bain MD Primary Care Provider Reason for Referral * CT Scan (Routine) - Closed Specialty Diagnoses / Procedures Referred By Meghana t Referred To Contact Diagnoses Malignant neoplasm of right upper lobe of lung Procedures CT CHEST W CONTRAST Nahid Hickman MD [address] [place] [phone] [place] [address] Referral ID Status Reason Start Date Expiration Date V isits Requested Visits Authorized [id number] Closed STL CTS 10/05/2020 11/05/2021 1 1 Reason for Visit * Reason Comments Follow Up Follow Up * Eval and Treat (Routine) - Closed Specialty Diagnoses / Procedures Referred By Meghana t Referred To Contact Oncology Diagnoses C34.90 Procedures OFFICE LEVEL VISIT 3-5 Evangelist Vyas MD [address] [place] [address] [address] Nahid Hickman MD [address] [place] [phone] Referral ID Status Reason Start Date Expiration Date Visits Re quested Visits Authorized [id number] Closed 07/20/2020 01/16/2021 12 12 Encounter Details Date Type Department Care Team (Late st Contact Info) Description 10/05/2020 10:00 AM CDT Office Visit [facility] Oncology and Hematology - [place] [address] [place] [address] Nahid Hickman MD [address] [facility] [address] [place] [address] Malignant neoplasm of right upper [...] have Coronavirus / COVID-19? No / Unsure 10/05/2020 9:56 AM CDT documented as of this encounter Last Filed Vital Signs Vital Sign Reading Time Taken Comments Blood Pressure 144/90 10/05/2020 10:05 AM CDT Pulse 87 10/05/2020 10:05 AM CDT Temperature 36.4 ??C (97.6 ??F) 10/05/2020 10:05 AM C DT Respiratory Rate - - Oxygen Saturation 98% 10/05/2020 10:05 AM CDT Inhaled Oxygen Concentration - - Weight 68.1 kg (150 lb 3.2 oz) 10/05/2020 10:05 AM CDT Height 161.3 cm (5' 3.5 ) 10/05/2020 10:05 AM CD T Body Mass Index 26.19 10/05/2020 10:05 AM CDT documented in this encounter Progress Notes * Nahid Hickman MD - 10/05/2020 10:41 AM CDT HEMATOLOGY / ONCOLOGY PROGRESS NOTE Patient Identification: Name: Cassandra Martinez Age: 75 y.o. Sex: female : 1945 DIAGNOSIS ?? [...] Patient came into the office for follow-up visit after the surgery was performed. She is recoveringwell from the surgery has some right chest wall discomfort. Weight and appetite stable. No other new complaints. Review of system Constitutional: denies fevers, sweats, fatigue, malaise, weight loss HEENT: denies sinus congestion, hearing or vision problems Respiratory: denies cough, dyspnea, wheeze Cardiovascular: denies chest pain, exertional chest pressure/discomfort, nausea, syncope, shortnessof breath GI: denies constipation, diarrhea, dsyphagia, reflux symptoms, vomiting, melena : denies dysuria, frequency, incontinence, urgency Integumentary system: no lymphadenopathy, sweats, flushing Musculoskeletal: denies: myalgia, arthralgia, right chest wall discomfort Neurological: denies blurry or disturbed vision, numbness/weakness, dizziness Skin: No lumps, bumps or rashes. 12 point review systems reviewed and as above Objective: Vital signs [...] 0.5 WBC 6 hemoglobin 11 platelet 217,000 @IMAGEIMP@ Assessment: Plan: Patient Active Problem List Diagnosis Date Noted ??? Benign hypertension 10/01/2020 ??? Carotid artery disease 10/01/2020 ??? New onset atrial fibrillation ??? Non-small cell cancer of right [...] expression of 2%. Negative ALK gene rearrangement. Based on NCCN guideline adjuvant chemotherapy is not recommended for low risk of stage IB disease. I will see her back in [address] chest. Labs will be done on return to clinic. New onset atrial fibrillation. Patient is on Eliquis and metoprolol. She will continue to follow-upwith the cardiology. TOBACCO COUNSELING She is not a tobacco user. 10/05/2020 Nahid Hickman MD documented in this encounter Plan of Treatment Upcoming Encounters Date Type Department Care Team (Late st Contact Info) Description 2024 11:00 AM AUTO CLUB TRAVEL COUNSELOR Appointment [facility] [address] [place] [address] 07/21/2024 9:45 AM AUTO CLUB TRAVEL COUNSELOR Appointment [facility] Cabinet Abrasive Sandblaster [address] [place] [address] Kiel Vasquez MD [address] [facility] 2014 [place] [address] 07/21/2024 9:53 AM AUTO CLUB TRAVEL COUNSELOR Hospital Encounter [facility] Cabinet Abrasive Sandblaster [address] [place] [address] Kiel Vasquez MD [address] [facility] 2014 [place] [address] Paroxysmal A-fib 07/21/2024 9:53 AM AUTO CLUB TRAVEL COUNSELOR - 07/21/2024 11:46 AM AUTO CLUB TRAVEL COUNSELOR Surgery [facility] Cabinet Abrasive Sandblaster [address] [place] [address] Kiel Vasquez MD [address] [place] [address] 2014 [place] [address] Left atrial appendage closure percutaneous 07/28/2024 8:30 AM AUTO CLUB TRAVEL COUNSELOR Office Visit [facility] Oncology and Hematology - [place] [address] [facility] 200 [place] [address] Nahid Hickman MD [address] [facility] [address] [place] [address] 09/09/2024 1:00 PM CDT Office Visit [facility] Heart and Vascular At [address] 2014 [place] [address] Kiel Vasquez MD [address] [place] [address] 2014 [place] [address] 12/16/2024 11:00 AM CDT Office Visit [facility] HEART AND VASCULAR EP AT [address] [place] [address] Demetrius Bowling DNP [address] [place] [address] 2014 [place] [address] 02/05/2025 10:45 AM CDT Telephone Check Up [facility] Heart and Vascular At [address] 2014 [place] [address] 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 FNP [address] [place] [phone] Scheduled Orders Name Type Priority Associated Diagnoses Orde r Schedule COMPREHENSIVE METABOLIC PANEL Lab Routine Malignant neoplasm of right upper lobe of lung Expected: 11/30/2020 (Approximate), Expires: 10/05/2021 CBC WITH DIFFERENTIAL Lab Routine Malignant neoplasm of right upper lobe of lung Expected: 11/30/2020 (Approximate), Expires: 10/05/2021 documented as of this encounter Results * CT CHEST W CONTRAST (12/07/2020) Anatomical Region Laterality Modality Chest Other Nahid Hickman MD CT ORDERABLES documented in this encounter Visit Diagnoses Diagnosis Malignant neoplasm of right upper lobe of lung- Primary Malignant neoplasm of upper lobe, bronchus or lung Paroxysmal atrial fibrillation- Primary Atrial fibrillation Paroxysmal A-fib Atrial fibrillation Paroxysmal A-fib Atrial fibrillation documented in this encounter Care Teams Windows Migration Technician Relationship Specialty Start Date End Date Aliza Bain MD [address] [place] [address] PCP - General Family Practice 07/29/20 11/21/21 documented as of this encounter
--- OUTSIDE RECORDS SUMMARY | 2024-07-01 00:44 | XMS_ITS | Encounter Summary ---
Author Organization [facility] Address [address] [place] [address] Care Team Providers Care Motor Vehicle Technician Name Role Phone Aliza Bain MD Primary Care Provider Reason for Referral * CT Scan (Routine) - Closed Specialty Diagnoses / Procedures Referred By Mgehana vigil Referred To Contact Diagnoses Malignant neoplasm of upper lobe of right lung Procedures CT CHEST W CONTRAST Marie Ramsey MD [address] [place] [address] [place] [address] Referral ID Status Reason Start Date Expiration Date V isits Requested Visits Authorized [id number] Closed STL CTS 05/06/2021 07/06/2021 1 1 Reason for Visit * Reason Comments Follow Up 2 month F/U with Lab s and CT results / also having trouble breathing sometimes * Eval and Treat (Routine) - Closed Specialty Diagnoses / Procedures Referred By Meghana t Referred To Contact Oncology Diagnoses C34.90 Procedures OFFICE LEVEL VISIT 3-5 Evangelist Vyas MD [address] [place] [phone] Nahid Hickman MD [address] [facility] [address] [place] [phone] Referral ID Status Reason Start Date Expiration Date Visits Re quested Visits Authorized [id number] Closed 07/20/2020 01/16/2021 12 12 Encounter Details Date Type Department Care Team (Late st Contact Info) Description 12/14/2020 11:00 AM CDT Office Visit [facility] Oncology and Hematology - [place] [address] [place] [address] Marie Ramsey MD [address] [place] [address] Malignant neoplasm of upper lobe of right lung (Primary Dx) Social History Tobacco Use [...] have Coronavirus / COVID-19? No / Unsure 12/14/2020 9:01 AM CDT documented as of this encounter Last Filed Vital Signs Vital Sign Reading Time Taken Comments Blood Pressure 128/63 12/14/2020 9:07 AM CDT Pulse 69 12/14/2020 9:07 AM CDT Temperature 36.5 ??C (97.7 ??F) 12/14/2020 9:07 AM CD T Respiratory Rate - - Oxygen Saturation 98% 12/14/2020 9:07 AM CDT Inhaled Oxygen Concentration - - Weight 66.9 kg (147 lb 8 oz) 12/14/2020 9:07 AM CDT Height 161.3 cm (5' 3.5 ) 12/14/2020 9:07 AM CDT Body Mass Index 25.72 12/14/2020 9:07 AM CDT documented in this encounter Progress Notes * Marie Ramsey MD - 12/14/2020 9:19 AM CDT HEMATOLOGY / ONCOLOGY PROGRESS NOTE [...] SUBJECTIVE Patient came into the office for a 2-month follow-up visit and review of CT scan. Pt reports mild intermittent sciatic pain since she was in the hospital. Weight relatively stable, lost 3 lbs but changed her diet to eat healthier foods. A little bit more tired than usual. Reports ongoing soreness at surgical site and feels a pressure on her chest after exhaling since her lobectomy. No other new complaints. Review of system [...] color, texture, turgor normal. No rashes or lesions. Lobectomy scars well healed, no abnormalities noted. Lymph nodes: No lymphadenopathy Neuro: No obvious focal deficit Examination as above PATH LABS Labs from 10/26/2020 showed creatinine 0.8 total bilirubin 0.5 WBC 6 hemoglobin 11 platelet 217,000 Labs from December 01, 2020 show WBC 5.4, Hb 12.5, plt 259, Cr 1.0, BUN 27 (elevated), total bili 0.5, other LFTs WNL, @IMAGEIMP@ Assessment: Plan: Patient Active Problem List [...] for low risk of stage IB disease. CT chest w/ contrast 12/07/20: 4mm RLL subsolid lung nodule. 6-12 month f/u recommended. No signs of recurrence. Labs reviewed. Stable. No signs of recurrence on December [address] Will start surveillance per NCNN guidelines with CT chest every 6 months for the next 2-[address] Hickman will see her back in 3 months for clinic visit. Have ordered CT chest for 6 months from now. New onset atrial fibrillation on anticoagulation: Patient is on Eliquis and metoprolol. She will continue to follow-up with the cardiology. Heart rate regular on exam today. Has an upcoming appointment with them, will discuss whether appropriate to stop anticoagulation at this point. TOBACCO COUNSELING She is not a tobacco user. 12/14/2020 Marie Ramsey MD ([facility]) documented in this encounter Plan of Treatment Upcoming Encounters Date Type Department Care Team (Late st Contact Info) Description 2024 11:00 AM HEEL LIFT GOUGER Appointment [facility] [address] [facility] [address] [facility] [place] [address] 07/21/2024 9:45 AM HEEL LIFT GOUGER Appointment [facility] Visual Associate [address] [place] [address] Kiel Vasquez MD [address] [facility] 2014 [place] [address] 07/21/2024 9:53 AM HEEL LIFT GOUGER Hospital Encounter [facility] Visual Associate [address] [place] [address] Kiel Vasquez MD [address] [facility] 2014 [place] [address] Paroxysmal A-fib 07/21/2024 9:53 AM HEEL LIFT GOUGER - 07/21/2024 11:46 AM HEEL LIFT GOUGER Surgery [facility] Visual Associate [address] [place] [address] Kiel Vasquez MD [address] [facility] 2014 [place] [address] Left atrial appendage closure percutaneous 07/28/2024 8:30 AM HEEL LIFT GOUGER Office Visit [facility] Oncology and Hematology - [place] [address] [place] [phone] Nahid Hickman MD [address] [facility] [address] [place] [phone] 09/09/2024 1:00 PM CDT Office Visit [facility] Heart and Vascular At [address] 2014 [place] [address] Kiel Vasquez MD [facility] [address] [facility] 2014 [place] [address] 12/16/2024 11:00 AM CDT Office Visit [facility] HEART AND VASCULAR EP AT [address] 2014 [place] [address] Demetrius Bowling, TRU[place] [address] [facility] [address] [place] 2014 [place] [address] 02/05/2025 10:45 AM CDT Telephone Check Up [facility] Heart and Vascular At [facility] [address] [facility] [address] [place] [address] 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, CAT [address] [place] [address] Scheduled Orders Name Type Priority Associated Diagnoses Orde r Schedule CT CHEST W CONTRAST Imaging Routine Malignant neoplasm of upper lobe of right lung Expected: 06/15/2021, Expires: 12/14/2021 documented as of this encounter Visit Diagnoses Diagnosis Malignant neoplasm of upper lobe of right lung- Primary Malignant neoplasm of upper lobe, bronchus or lung Paroxysmal atrial fibrillation- Primary Atrial fibrillation Paroxysmal A-fib Atrial fibrillation Paroxysmal A-fib Atrial fibrillation documented in this encounter Care Teams Motor Vehicle Technician Relationship Specialty Start Date End Date Aliza Bain MD [address] [place] [address] PCP - General Family Practice 07/29/20 11/21/21 documented as of this encounter
--- OUTSIDE RECORDS SUMMARY | 2024-07-01 00:44 | XMS_ITS | Encounter Summary ---
Author Organization [facility] Address [address] [place] [address] Care Team Providers Care Playground Supervisor Name Role Phone Aliza Bain MD Primary Care Provider Reason for Visit * Reason Comments Follow Up A. Fib Encounter Details Date Type Department Care Team (Late st Contact Info) Description 03/31/2021 2:30 PM CDT Office Visit [facility] At [address] [place] [address] Kiel Vasquez MD [address] [place] [address] [address] [place] [address] Benign hypertension (Primary Dx); New onset atrial fibrillation; Carotid artery disease, unspecified laterality, unspecified type [...] have Coronavirus / COVID-19? No / Unsure 03/31/2021 2:01 PM CDT documented as of this encounter Last Filed Vital Signs Vital Sign Reading Time Taken Comments Blood Pressure 148/66 03/31/2021 2:28 PM CDT Pulse 58 03/31/2021 2:28 PM CDT Temperature 36.2 ??C (97.2 ??F) 03/31/2021 2:28 PM CD T Respiratory Rate - - Oxygen Saturation 98% 03/31/2021 2:28 PM CDT Inhaled Oxygen Concentration - - Weight 68.5 kg (151 lb) 03/31/2021 2:28 PM CDT Height 160 cm (5' 3 ) 03/31/2021 2:28 PM CDT Body Mass Index 26.75 03/31/2021 2:28 PM CDT documented in this encounter Progress Notes * Kiel Vasquez MD - 03/31/2021 2:30 PM CDT [facility] Primary Care Physician: Aliza Bain MD Problem List #. afib #. HTN #. 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 Carotid artery stenosis History Of Present Illness Cassandra Martinez is a delightful 75 y.o. female with the above mentioned medical problems. Since her last visit, she has felt well. She has been active and has been walking regularly. She goes dancing from time to time, spends time with her family. She does all her ADLs, cleans her house, and goes grocery shopping. She has no cardiac sx or concerns. No CP. No new or significant dyspnea. No light-headedness or syncope. Taking meds. No bleeding or neuro symptoms. Weight similar to recent past. Has 2 children, 3 grand children, 3 great grand children in [facility]. Past Medical History Past Medical [...] History reports that she quit smoking about 21 years ago. Her smoking use included cigarettes. She has a 20.00 pack-year smoking history. She has never used smokeless tobacco. She reports current alcohol use. She reports that she does not use drugs. Review of Systems See HPI Physical Exam Vitals: 03/31/21 1428 BP: (!) 148/66 Pulse: (!) 58 Temp: 97.2 ??F (36.2 ??C) SpO2: 98% Weight: 68.5 kg (151 lb) Height: 5' 3 (1.6 m) General: no distress, oriented, looks well CV: normal neck veins, normal auscultated S1/2, no extra heart sounds or gallops, no murmurs Lungs: clear to auscultation bilaterally, no wheezes, rales, rhonchi Ext: no edema, warm, pulses intact Laboratory Data No results found for this visit on 03/31/21 (from the past 24 hour(s)). Lab Results Component Value Date/Time WBC 13.0 (H) 09/01/2020 05:57 AM HGB 9.6 (L) 09/01/2020 05:57 AM HGBPOC 10.2 (L) 08/31/2020 07:31 AM HCT 29.3 (L) 09/01/2020 05:57 AM HCTPOC 31 (L) 08/31/2020 07:31 AM PLT 166 09/01/2020 05:57 AM MCV 93.6 09/01/2020 05:57 AM No results found for: TSH, TSHULTRA, THYROIDSTIM No results found for: CHOLTOT, HDL, LDLCALC, LDLDIRECT, TRIGLYCERIDE Lab Results Component Value Date/Time NA 133 (L) 09/04/2020 06:22 AM K 4.3 09/04/2020 06:22 AM CL 100 09/04/2020 06:22 AM CO2 26 09/04/2020 06:22 AM CA 8.4 (L) 09/04/2020 06:22 AM BUN 16 09/04/2020 06:22 AM CREAT 0.72 09/04/2020 06:22 AM GLUCOSE 113 (H) 09/04/2020 06:22 AM ANIONGAP 7 (L) 09/04/2020 06:22 AM ECG #. afib Non-Invasive Testing #. 09/2020 event monitor - afib Cardiac Catheterization #. n/a Impression/Plan Cassandra Martinez is a delightful 75 y.o. female with the below cardiac diagnoses who presents for eval Atrial fibrillation - [id number] = 4 -Will continue rate control -On OAC with eliquis Hypertension - BP well controlled. Will continue [...] any questions or concerns. Kiel Vasquez MD [facility] General, Interventional, and Structural Cardiology Vascular Medicine and Intervention [address] [facility] ([facility]); [address] [place] [address] Office Office Medications Current Outpatient Medications: ??? omeprazole (PriLOSEC) 40 mg Capsule, Delayed Release(E.C.), TAKE 1 CAPSULE BY MOUTH EVERY DAY, Disp: , Rfl: ??? Eliquis 5 mg tablet, TAKE 1 TABLET BY MOUTH TWICE A DAY, Disp: 60 Tablet, Rfl: 3 ??? cyanocobalamin (VITAMIN B-12) 100 mcg tablet, Take 100 mcg by mouth daily., Disp: , Rfl: ??? magnesium oxide 250 [...] tab by mouth daily, Disp: , Rfl: ??? HYDROcodone-acetaminophen (NORCO) 5-325 mg tablet, Take 1 Tablet by mouth every 4 hours as needed for Pain. Max Daily Amount: 6 Tablets (Patient not taking: Reported on 03/31/2021 ), Disp: 42 Tablet, Rfl: 0 ??? calcium-cholecalciferol (OS-SUSAN 500+D) 500 mg(1,250mg) -200 unit tablet, Take 1 Tablet by mouthdaily., Disp: , Rfl: ??? glucosamine sulfate 500 mg Capsule, Take 500 mg by mouth., Disp: , Rfl: * Bing Rivera - 03/31/2021 2:28 PM CDT 6 month follow up, A. Fib. No current cardiac concerns. documented in this encounter Plan of Treatment Upcoming Encounters Date Type Department Care Team (Late st Contact Info) Description 2024 11:00 AM REAL ESTATE LEASING AGENT Appointment [facility] [place] [address] [place] [address] 07/21/2024 9:45 AM REAL ESTATE LEASING AGENT Appointment [facility] Licensed Practical Nurse [address] [place] [address] Kiel Vasquez MD [address] [facility] 2014 [place] [address] 07/21/2024 9:53 AM REAL ESTATE LEASING AGENT Hospital Encounter [facility] Licensed Practical Nurse [address] [place] [address] Kiel Vasquez MD [address] [facility] [address] [place] [address] Paroxysmal A-fib 07/21/2024 9:53 AM REAL ESTATE LEASING AGENT - 07/21/2024 11:46 AM REAL ESTATE LEASING AGENT Surgery [facility] Licensed Practical Nurse [address] [place] [address] Kiel Vasquez MD [address] [facility] 2014 [place] [address] Left atrial appendage closure percutaneous 07/28/2024 8:30 AM REAL ESTATE LEASING AGENT Office Visit [facility] - [place] [address] [place] [address] Nahid Hickman MD [address] [facility] [address] [place] [address] 09/09/2024 1:00 PM CDT Office Visit [facility] At [address] [place] [address] Kiel Vasquez MD [facility] [address] [facility] 2014 [place] [address] 12/16/2024 11:00 AM CDT Office Visit [facility] HEART AND VASCULAR EP AT [address] [place] [address] Demetrius Bowling DNP [address] [place] [address] 2014 [place] [address] 02/05/2025 10:45 AM CDT Telephone Check Up [facility] At [address] 2014 [place] [address] 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 FNP [facility] [place] [address] documented as of this encounter Visit Diagnoses Diagnosis Benign hypertension- Primary Essential hypertension, benign New onset atrial fibrillation Atrial fibrillation Carotid artery disease, unspecified laterality, unspecified type Paroxysmal atrial fibrillation- Primary Atrial fibrillation Paroxysmal A-fib Atrial fibrillation Paroxysmal A-fib Atrial fibrillation documented in this encounter Care Teams Playground Supervisor Relationship Specialty Start Date End Date Aliza Bain MD [address] [place] [address] PCP - General Family Practice 07/29/20 11/21/21 documented as of this encounter
--- OUTSIDE RECORDS SUMMARY | 2024-07-01 00:44 | XMS_ITS | Encounter Summary ---
Author Organization [facility] [employer] (Closed) [facility] Address [address] [place] [address] Care Team Providers Care Home Restoration Service Supervisor Name Role Phone Aliza Bain MD Primary Care Provider Reason for Visit * Reason Comments Follow Up 3 month f/u with lab s * Eval and Treat (Routine) - Closed Specialty Diagnoses / Procedures Referred By Contac t Referred To Contact Oncology Diagnoses Malignant neoplasm of unspecified part of right bronchus or lung (CMS/HCC) Procedures Office visit level 3-5 Aliza Bain MD [address] [place] [address] [facility] Oncology And Hematology [place] [address] [place] [address] Referral ID Status Reason Start Date Expiration Date Visits Re quested Visits Authorized [id number] Closed 03/10/2021 09/06/2021 12 12 Encounter Details Date Type Department Care Team (Late st Contact Info) Description 03/15/2021 9:45 AM CDT Office Visit [facility] Oncology and Hematology [facility] [address] [place] [address] Nahid Hickman MD [address] [facility] [address] [place] [address] Malignant neoplasm of upper lobe [...] have Coronavirus / COVID-19? No / Unsure 03/15/2021 9:39 AM CDT documented as of this encounter Last Filed Vital Signs Vital Sign Reading Time Taken Comments Blood Pressure 153/69 03/15/2021 9:44 AM CDT Pulse 72 03/15/2021 9:44 AM CDT Temperature 36.7 ??C (98.1 ??F) 03/15/2021 9:44 AM CD T Respiratory Rate - - Oxygen Saturation 98% 03/15/2021 9:44 AM CDT Inhaled Oxygen Concentration - - Weight 67.3 kg (148 lb 6.4 oz) 03/15/2021 9:44 A M CDT Height 161.3 cm (5' 3.5 ) 03/15/2021 9:44 AM CDT Body Mass Index 25.88 03/15/2021 9:44 AM CDT documented in this encounter Progress Notes * Nahid Hickman MD - 03/15/2021 10:44 AM CDT HEMATOLOGY / ONCOLOGY PROGRESS NOTE [...] office for follow-up visit. She denies any bleeding and bruising. Some dyspnea on exertion. No chest pain. No other new complaints. Review of system Constitutional: denies fevers, sweats, fatigue, malaise, weight loss HEENT: denies sinus congestion, hearing or vision problems Respiratory: denies cough, dyspnea, wheeze Cardiovascular: denies chest pain, exertional chest pressure/discomfort, nausea, syncope, complain of dyspnea on exertion GI: denies constipation, diarrhea, dsyphagia, reflux symptoms, [...] 0.4 WBC 5.7 hemoglobin 10.5 platelet 233,000 @IMAGEIMP@ Assessment: Plan: Patient Active Problem List [...] ALK gene rearrangement. CT chest done on December 07 showed no evidence of relapse of disease. We will repeat CT chest in 3 months. New onset atrial fibrillation. Patient is on Eliquis. Anemia. Patient has a history of anemia. She is asymptomatic. We will repeat labs again in 3 monthswith iron panel and vitamin B12 level. History of MGUS. We will do myeloma testing in 1 year. TOBACCO COUNSELING She is not a tobacco user. 03/15/2021 Nahid Hickman MD documented in this encounter Plan of Treatment Upcoming Encounters Date Type Department Care Team (Late st Contact Info) Description 2024 11:00 AM GRASS FARM LABORER Appointment [facility] [address] [place] [address] 07/21/2024 9:45 AM GRASS FARM LABORER Appointment [facility] Billet Driller [address] [place] [address] Kiel Vasquez MD [address] [facility] 2014 [place] [address] 07/21/2024 9:53 AM GRASS FARM LABORER Hospital Encounter [facility] [address] [address] [address] [place] [address] Kiel Vasquez MD [address] [facility] [address] [place] [address] Paroxysmal A-fib 07/21/2024 9:53 AM GRASS FARM LABORER - 07/21/2024 11:46 AM GRASS FARM LABORER Surgery [facility] [address] [address] [address] [place] [address] Kiel Vasquez MD [address] [facility] 2014 [place] [address] Left atrial appendage closure percutaneous 07/28/2024 8:30 AM GRASS FARM LABORER Office Visit [facility] Oncology and Hematology Radha Taylor [address] [place] [address] Nahid Hickman MD [address] [facility] [address] [place] [address] 09/09/2024 1:00 PM CDT Office Visit [facility] Heart and Vascular At [address] [place] [address] Kiel Vasquez MD [address] [place] [address] 2014 [place] [address] 12/16/2024 11:00 AM CDT Office Visit [facility] HEART AND VASCULAR EP AT [address] [place] [address] Demetrius Bowling DNP [address] [place] [address] 2014 [place] [address] 02/05/2025 10:45 AM CDT Telephone Check Up [facility] V[facility] At [address] [place] [address] 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 FNP [facility] [place] [address] Scheduled Orders Name Type Priority Associated Diagnoses Orde r Schedule CBC WITH DIFFERENTIAL Lab Stat Chronic anemia Expected: 06/07/2021, Expires: 03/15/2022 BASIC METABOLIC PANEL Lab Stat Chronic anemia Expected: 06/07/2021, Expires: 03/15/2022 FERRITIN Lab Routine Chronic anemia Expected: 06/07/2021, Expires: 03/15/2022 IRON, TIBC, AND PERCENT SATURATION Lab Routine Chronic anemia Expected: 06/07/2021, Expires: 03/15/2022 VITAMIN B12 AND FOLATE Lab Routine Chronic anemia Expected: 06/07/2021, Expires: 03/15/2022 documented as of this encounter Visit Diagnoses Diagnosis Malignant neoplasm of upper lobe of right lung- Primary Malignant neoplasm of upper lobe, bronchus or lung Chronic anemia Anemia, unspecified MGUS (monoclonal gammopathy of unknown significance) Monoclonal paraproteinemia Paroxysmal atrial fibrillation- Primary Atrial fibrillation Paroxysmal A-fib Atrial fibrillation Paroxysmal A-fib Atrial fibrillation documented in this encounter Care Teams Home Restoration Service Supervisor Relationship Specialty Start Date End Date lAiza Bain MD [address] [place] [address] PCP - General Family Practice 07/29/20 11/21/21 documented as of this encounter
--- OUTSIDE RECORDS SUMMARY | 2024-07-01 00:44 | XMS_ITS | Encounter Summary ---
Author Organization [facility] [employer] [facility] Address [address] [place] [address] Care Team Providers Care Health Education Assistant Name Role Phone Aliza Bain MD Primary Care Provider Encounter Details Date Type Department Care Team (Late st Contact Info) Description 06/13/2021 Orders Only [facility] Oncology and Hematology - [place] [address] [place] [address] Keiry Vincent Chronic anemia Social History Tobacco Use Types [...] COVID-19? No / Unsure 06/16/2021 12:22 PM HEAD OF SCIENCE documented as of this encounter Plan of Treatment Upcoming Encounters Date Type Department Care Team (Late st Contact Info) Description 2024 11:00 AM HEAD OF SCIENCE Appointment [facility] [address] [place] [address] 07/21/2024 9:45 AM HEAD OF SCIENCE Appointment [facility] Trauma Counsellor [address] [place] [address] Kiel Vasquez MD [address] [place] [address] 07/21/2024 9:53 AM HEAD OF SCIENCE Hospital Encounter [facility] Trauma Counsellor [address] [place] [address] Kiel Vasquez MD [address] [place] [address] Paroxysmal A-fib 07/21/2024 9:53 AM HEAD OF SCIENCE - 07/21/2024 11:46 AM HEAD OF SCIENCE Surgery [facility] Trauma Counsellor [address] [place] [phone] Kiel Vasquez MD [address] [place] [address] 2014 [place] [address] Left atrial appendage closure percutaneous 07/28/2024 8:30 AM HEAD OF SCIENCE Office Visit [facility] Oncology and Hematology - [place] [address] [facility] [address] [place] [address] Nahid Hickman MD [address] [facility] [address] [place] [address] 09/09/2024 1:00 PM CDT Office Visit [facility] Heart and Vascular At [address] 2014 [place] [address] Kiel Vasquez MD [address] [place] [address] 2014 [place] [address] 12/16/2024 11:00 AM CDT Office Visit [facility] HEART AND VASCULAR EP AT [address] [place] [address] Demetrius Bowling DNP [address] [place] [address] 2014 [place] [address] 02/05/2025 10:45 AM CDT Telephone Check Up [facility] Heart and Vascular At [address] [place] [address] 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 FNP [address] [place] [phone] documented as of this encounter Procedures Procedure Name Priority Date/Time Associated Diagnosis Comments CREATININE Routine 06/13/2021 COMPREHENSIVE METABOLIC PANEL Routine 06/13/2021 documented in this encounter Results * CREATININE (06/13/2021) Blood Abstract Provider CHEMISTRY ORDERABLES * COMPREHENSIVE METABOLIC PANEL (06/13/2021) Blood Abstract Provider CHEMISTRY ORDERABLES documented in this encounter Visit Diagnoses Diagnosis Chronic anemia Anemia, unspecified Paroxysmal atrial fibrillation- Primary Atrial fibrillation Paroxysmal A-fib Atrial fibrillation Paroxysmal A-fib Atrial fibrillation documented in this encounter Care Teams Health Education Assistant Relationship Specialty Start Date End Date Aliza Bain MD [address] [place] [address] PCP - General Family Practice 07/29/20 11/21/21 documented as of this encounter
--- OUTSIDE RECORDS SUMMARY | 2024-07-01 00:44 | XMS_ITS | Encounter Summary ---
Author Organization [facility] Address [address] [place] [address] Care Team Providers Care Supervisor Enrobing Name Role Phone Aliza Bain MD Primary Care Provider Reason for Visit * Reason Onset Date Comments Medication Refill 03/31/2021 Encounter Details Date Type Department Care Team (Late st Contact Info) Description 03/31/2021 Refill [facility] Heart and Vascular [place] [address] [facility] [address] [place] [address] Kiel Vasquez MD [address] [place] [address] 2014 [place] [address] New onset atrial fibrillation Social [...] any clubs o r organizations such as mandaeism groups, unions, fraternal or athletic groups, or [...] PM CDT documented as of this encounter Miscellaneous Notes * Telephone Encounter - Tom Nino - 03/31/2021 3:07 PM CDT Samples of this drug were given to the patient. ELIQUIS 5MG Lot: [id number] Exp. 09/07(4 boxes with 14 tabs in each) documented in this encounter Plan of Treatment Upcoming Encounters Date Type Department Care Team (Late st Contact Info) Description 2024 11:00 AM MAINTENANCE INSTRUCTOR Appointment [facility] [address] [place] [address] 07/21/2024 9:45 AM MAINTENANCE INSTRUCTOR Appointment [facility] Environmental Services Technician [address] [place] [address] Kiel Vasquez MD [address] [facility] [address] [place] [address] 07/21/2024 9:53 AM MAINTENANCE INSTRUCTOR Hospital Encounter [facility] Environmental Services Technician [address] [place] [address] Kiel Vasquez MD [address] [facility] [address] [place] [address] Paroxysmal A-fib 07/21/2024 9:53 AM MAINTENANCE INSTRUCTOR - 07/21/2024 11:46 AM MAINTENANCE INSTRUCTOR Surgery [facility] Environmental Services Technician [address] [place] [address] Kiel Vasquez MD [address] [facility] 2014 [place] [address] Left atrial appendage closure percutaneous 07/28/2024 8:30 AM MAINTENANCE INSTRUCTOR Office Visit [facility] Oncology and Hematology - [place] [address] [place] [phone] Nahid Hickman MD [address] [address] 09/09/2024 1:00 PM CDT Office Visit [facility] Heart and Vascular At [address] [place] [address] Kiel Vasquez MD [address] [facility] 2014 [place] [address] 12/16/2024 11:00 AM CDT Office Visit [facility] HEART AND VASCULAR EP AT [address] [place] [address] Demetrius Bowling, TRUONG [address] [facility] [address] [place] [address] 02/05/2025 10:45 AM CDT Telephone Check Up [facility] Heart and Vascular At [facility] [address] [facility] [address] [place] [address] 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, CAT [address] [place] [address] documented as of this encounter Visit Diagnoses Diagnosis New onset atrial fibrillation Atrial fibrillation Paroxysmal atrial fibrillation- Primary Atrial fibrillation Paroxysmal A-fib Atrial fibrillation Paroxysmal A-fib Atrial fibrillation documented in this encounter Care Teams Supervisor Enrobing Relationship Specialty Start Date End Date Aliza Bain MD [address] [facility] [place] [place] [address] PCP - General Family Practice 07/29/20 11/21/21 documented as of this encounter
--- OUTSIDE RECORDS SUMMARY | 2024-07-01 00:44 | XMS_ITS | Encounter Summary ---
Author Organization [facility] [employer] [facility] Address [address] [place] [address] Care Team Providers Care Insurance Sales Supervisor Name Role Phone Aliza Bain MD Primary Care Provider Encounter Details Date Type Department Care Team (Late st Contact Info) Description 12/07/2020 Orders Only [facility] Oncology and Hematology - Brandon [address] [place] [address] Destiny Astorga, TUNDE Malignant neoplasm of right upper lobe of [...] any clubs o r organizations such as holiness groups, unions, fraternal or athletic groups, or [...] st Contact Info) Description 2024 11:00 AM MOBILE HOME PARK MANAGER Appointment [facility] [address] [place] [address] 07/21/2024 9:45 AM MOBILE HOME PARK MANAGER Appointment [facility] Software Development Specialist [address] [place] [address] Kiel Vasquez MD [address] [facility] 2014 [place] [address] 07/21/2024 9:53 AM MOBILE HOME PARK MANAGER Hospital Encounter [facility] Software Development Specialist [address] [place] [address] Kiel Vasquez MD [address] [facility] 2014 [place] [address] Jesse Lackey-fib 07/21/2024 9:53 AM MOBILE HOME PARK MANAGER - 07/21/2024 11:46 AM MOBILE HOME PARK MANAGER Surgery [facility] Software Development Specialist [address] [place] [address] Kiel Vasquez MD [address] [place] [address] 2014 [place] [address] Left atrial appendage closure percutaneous 07/28/2024 8:30 AM MOBILE HOME PARK MANAGER Office Visit [facility] Oncology and Hematology - [place] [address] [facility] 200 [place] [address] Nahid Hickman MD 2[address] [facility] [address] [place] [address] 09/09/2024 1:00 PM CDT Office Visit [facility] Heart and Vascular At [address] 2014 [place] [address] Kiel Vasquez MD [address] [place] [address] 2014 [place] [address] 12/16/2024 11:00 AM CDT Office Visit [facility] HEART AND VASCULAR EP AT [address] 2014 [place] [address] Demetrius Bowling DNP [address] [place] [address] 2014 [place] [address] 02/05/2025 10:45 AM CDT Telephone Check Up [facility] Heart and Vascular At [address] 2014 [place] [address] 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 FNP [address] [place] [phone] documented as of this encounter Procedures Procedure Name Priority Date/Time Associated Diagnosis Comments CT CHEST W CONTRAST Routine 12/07/2020 Malignant neoplasm of right upper lobe of lung documented in this encounter Results * CT [...] fibrillation documented in this encounter Care Teams Insurance Sales Supervisor Relationship Specialty Start Date End Date Aliza Bain MD [address] [place] [address] PCP - General Family Practice 07/29/20 11/21/21 documented as of this encounter
--- OUTSIDE RECORDS SUMMARY | 2024-07-01 00:44 | XMS_ITS | Encounter Summary ---
Author Organization [facility] Address [address] [facility] Attn: Epic Prelude ADT STU POLK [address] Care Team Providers Care Ruby On Rails Engineer Name Role Phone Aliza Bain MD Primary Care Provider Encounter Details Date Type Department Care Team (Latest Contact Info) Description 10/01/2020 Travel Social History Tobacco Use Types Packs/Day [...] have Coronavirus / COVID-19? No / Unsure 10/01/2020 11:41 AM CDT documented as of this encounter Plan of Treatment Upcoming Encounters Date Type Department Care Team (Late st Contact Info) Description 2024 11:00 AM COMMUNITY RELATIONS DIRECTOR Appointment [facility] S [facility] Manjit [address] [place] [address] 07/21/2024 9:45 AM COMMUNITY RELATIONS DIRECTOR Appointment [facility] Railroad Wheels And Axles Inspector [address] [place] [phone] Kiel Vasquez MD [address] [facility] 2014 [place] [address] 07/21/2024 9:53 AM COMMUNITY RELATIONS DIRECTOR Hospital Encounter [facility] Railroad Wheels And Axles Inspector [address] [place] [address] Kiel Vasquez MD [address] [facility] 2014 [place] [address] Jesse Lackey-fib 07/21/2024 9:53 AM COMMUNITY RELATIONS DIRECTOR - 07/21/2024 11:46 AM COMMUNITY RELATIONS DIRECTOR Surgery [facility] Railroad Wheels And Axles Inspector [address] [place] [address] Kiel Vasquez MD [address] [place] [address] 2014 [place] [address] Left atrial appendage closure percutaneous 07/28/2024 8:30 AM COMMUNITY RELATIONS DIRECTOR Office Visit [facility] Oncology and Hematology - Brandon 2[address] [facility] 200 [place] [address] Nahid Hickman MD 2[address] [facility] [address] [place] [address] 09/09/2024 1:00 PM CDT Office Visit [facility] Heart and Vascular At [address] 2014 [place] [address] Kiel Vasquez MD [address] [place] [address] 2014 [place] [address] 12/16/2024 11:00 AM CDT Office Visit [facility] HEART AND VASCULAR EP AT [address] 2014 [place] [address] Demetrius Bowling DNP [address] [place] [address] 2014 [place] [address] 02/05/2025 10:45 AM CDT Telephone Check Up [facility] Heart and Vascular At [address] [place] [address] 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 FNP [address] [place] [phone] documented as of this encounter Visit Diagnoses Not on filedocumented in this encounter Care Teams Ruby On Rails Engineer Relationship Specialty Start Date End Date Aliza Bain MD [address] [place] [address] PCP - General Family Practice 07/29/20 11/21/21 documented as of this encounter
--- OUTSIDE RECORDS SUMMARY | 2024-07-01 00:44 | XMS_ITS | Encounter Summary ---
Author Organization [facility] Address [address] [place] [address] Care Team Providers Care Pourer Off Name Role Phone Aliza Bain MD Primary Care Provider Reason for Visit * Reason Comments Follow Up 6 month f/u, A-fib, HTN, Carotid artery stenosis Encounter Details Date Type Department Care Team (Late st Contact Info) Description 06/16/2021 1:30 PM PASSENGER VESSEL CHEF Office Visit [facility] Heart and Vascular At [address] [place] [address] Kiel Vasquez MD [address] [place] [address] Sanjeev 2014 [place] [address] New onset atrial fibrillation (Primary Dx); Benign hypertension Social [...] any clubs o r organizations such as confucianism groups, unions, fraternal or athletic groups, or [...] COVID-19? No / Unsure 06/16/2021 12:22 PM PASSENGER VESSEL CHEF documented as of this encounter Last Filed Vital Signs Vital Sign Reading Time Taken Comments Blood Pressure 148/70 06/16/2021 1:07 PM PASSENGER VESSEL CHEF Pulse 68 06/16/2021 1:07 PM PASSENGER VESSEL CHEF Temperature 36 ??C (96.8 ??F) 06/16/2021 1:07 PM PASSENGER VESSEL CHEF Respiratory Rate - - Oxygen Saturation 96% 06/16/2021 1:07 PM PASSENGER VESSEL CHEF Inhaled Oxygen Concentration - - Weight 67.1 kg (148 lb) 06/16/2021 1:07 PM PASSENGER VESSEL CHEF Height 160 cm (5' 3 ) 06/16/2021 1:07 PM PASSENGER VESSEL CHEF Body Mass Index 26.22 06/16/2021 1:07 PM PASSENGER VESSEL CHEF documented in this encounter Progress Notes * Kiel Vasquez MD - 06/16/2021 1:30 PM CST [facility] Heart and Vascular Primary Care Physician: Aliza Bain MD Problem List #. afib #. HTN #. 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 Carotid artery stenosis History Of Present Illness Cassandra Martinez is a delightful 75 y.o. female with the above mentioned medical problems. Since her last visit, she has felt ok. She was having a lot of racing HR and palpitations after herlast visit. We had her obtain an event monitor which demonstrated a lot of symptomatic afib. She was referred to EP with Dr. Woods and is being scheduled for afib ablation. Since that time she has felt pretty well. She has days where she feels well and has good energy and other days where she is easily fatigued, dizzy, and has palpitaitons. She was told recently that her cancer has returned unfortunately and she now has myasthenia gravis No CP. No new or significant dyspnea. No light-headedness or syncope. Taking meds. No bleeding or neuro symptoms. Weight similar to recent past. Has 2 children, 3 grand children, 3 great grand children in [facility]. Past Medical History Past Medical [...] of Systems See HPI Physical Exam Vitals: 06/16/21 1307 BP: (!) 148/70 Pulse: 68 Temp: 96.8 ??F (36 ??C) SpO2: 96% Weight: 67.1 kg (148 lb) Height: 5' 3 (1.6 m) General: no distress, oriented, looks well CV: normal neck veins, normal auscultated S1/2, no extra heart sounds or gallops, no murmurs Lungs: clear to auscultation bilaterally, no wheezes, rales, rhonchi Ext: no edema, warm, pulses intact Laboratory Data No results found for this visit on 06/16/21 (from the past 24 hour(s)). Lab Results [...] 14 additional autotriggered/asympotmatic transmissions revealing atrial fibrillation Cardiac Catheterization #. n/a Impression/Plan Cassandra Martinez is a delightful 75 y.o. female with the below cardiac diagnoses who presents for eval Atrial fibrillation - [id number] = 4 -Will continue rate control, start diltiazem 120mg daily -On OAC with eliquis -check TTE -being scheduled for afib ablation Hypertension - BP well controlled. Will continue [...] any questions or concerns. Kiel Vasquez MD [facility] - Heart and Vascular General, Interventional, and Structural Cardiology Vascular Medicine and Intervention [address] [facility] [address] [place] [address] Office Office Medications Current Outpatient Medications: ??? apixaban (Eliquis) 5 mg tablet, Take 1 Tablet (5 mg) by mouth 2 times daily., Disp: 60 Tablet, Rfl: 0 ??? omeprazole (PriLOSEC) 40 mg Capsule, Delayed Release(E.C.), 20 mg. , Disp: , Rfl: ??? HYDROcodone-acetaminophen (NORCO) 5-325 mg tablet, Take 1 Tablet by mouth every 4 hours as needed for Pain. Max Daily Amount: 6 Tablets, Disp: 42 Tablet, Rfl: 0 ??? cyanocobalamin (VITAMIN B-12) 100 mcg tablet, [...] tab by mouth daily, Disp: , Rfl: ENGER VESSEL CHEF * Celeste Bruno - 06/16/2021 1:07 PM CST Pt's here for her 6 month f/u, A-fib, HTN, Carotid artery stenosis Pt stated, she's been dx with myasethenia gravis a month ago, she's SOB even resting Denies CP, no palps, no edema, no lightheadedness ENGER VESSEL CHEF documented in this encounter Miscellaneous Notes * Patient Instructions - Kiel Vasquez MD - 06/16/2021 1:22 PM PASSENGER VESSEL CHEF 1) start diltiazem 1 tablet daily 2) echo of heart 3) return in 6 months ENGER VESSEL CHEF documented in this encounter Plan of Treatment Upcoming Encounters Date Type Department Care Team (Late st Contact Info) Description 2024 11:00 AM PASSENGER VESSEL CHEF Appointment [facility] S [facility] Manjit [address] [place] [address] 07/21/2024 9:45 AM PASSENGER VESSEL CHEF Appointment [facility] Campaign Specialist [address] [place] [address] Kiel Vasquez MD [address] [address] 07/21/2024 9:53 AM PASSENGER VESSEL CHEF Hospital Encounter [facility] Campaign Specialist [address] [place] [address] Kiel Vasquez MD [address] [facility] 2014 [place] [address] Paroxysmal A-fib 07/21/2024 9:53 AM PASSENGER VESSEL CHEF - 07/21/2024 11:46 AM PASSENGER VESSEL CHEF Surgery [facility] Campaign Specialist [address] [place] [address] Kiel Vasquez MD [facility] S [facility] 2014 [place] [address] Left atrial appendage closure percutaneous 07/28/2024 8:30 AM PASSENGER VESSEL CHEF Office Visit [facility] Oncology and Hematology - Brandon 2227 [facility] 200 [place] [address] Nahid Hickman MD 2[address] [facility] [address] [place] [address] 09/09/2024 1:00 PM CDT Office Visit [facility] Heart and Vascular At [address] [place] [address] Kiel Vasquez MD [facility] 2014 [place] [address] 12/16/2024 11:00 AM CDT Office Visit [facility] HEART AND VASCULAR EP AT [address] [place] [address] Demetrius Bowling DNP [facility] 2014 [place] [address] 02/05/2025 10:45 AM CDT Telephone Check Up [facility] Heart and Vascular At [address] 2014 [place] [address] 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 [place] [address] documented as of this encounter Visit Diagnoses Diagnosis New onset atrial fibrillation- Primary Atrial fibrillation Benign hypertension Essential hypertension, benign Paroxysmal atrial fibrillation- Primary Atrial fibrillation Paroxysmal A-fib Atrial fibrillation Paroxysmal A-fib Atrial fibrillation documented in this encounter Care Teams Pourer Off Relationship Specialty Start Date End Date Aliza Bain MD [address] [place] [address] PCP - General Family Practice 07/29/20 11/21/21 documented as of this encounter
--- OUTSIDE RECORDS SUMMARY | 2024-07-01 00:44 | XMS_ITS | Encounter Summary ---
Author Organization [facility] [employer] [facility] Address [address] [place] [address] Care Team Providers Care Contract Attorney Name Role Phone Aliza Bain MD Primary Care Provider Reason for Visit * Reason Onset Date Comments Medication Refill 10/04/2020 Encounter Details Date Type Department Care Team (Late st Contact Info) Description 10/04/2020 Refill [facility] Oncology and Hematology - [place] [address] [place] [address] [facility] 200 [place] [address] Nahid Hickman MD [address] [facility] [address] [place] [address] New onset atrial fibrillation (Primary Dx) Social History Tobacco [...] and Family Not on file 07/29/2020 Attends Mosque Services Not on file 07/29 Do you [...] st Contact Info) Description 2024 11:00 AM GROCERY CARRIER Appointment [facility] [address] [place] [place] [address] 07/21/2024 9:45 AM GROCERY CARRIER Appointment [facility] Automobile Repair Service Estimator [address] [place] [address] Kiel Vasquez MD [address] [facility] 2014 [place] [address] 07/21/2024 9:53 AM GROCERY CARRIER Hospital Encounter [facility] Automobile Repair Service Estimator [address] [place] [address] Kiel Vasquez MD [address] [facility] 2014 [place] [address] Paroxysmal A-fib 07/21/2024 9:53 AM GROCERY CARRIER - 07/21/2024 11:46 AM GROCERY CARRIER Surgery [facility] Automobile Repair Service Estimator [address] [place] [address] Kiel Vasquez MD [facility] S [facility] 2014 [place] [address] Left atrial appendage closure percutaneous 07/28/2024 8:30 AM GROCERY CARRIER Office Visit [facility] Oncology and Hematology - [place] 2[address] [facility] 200 [place] [address] Nahid Hickman MD [address] [facility] [address] [place] [address] 09/09/2024 1:00 PM CDT Office Visit [facility] Heart and Vascular At [address] 2014 [place] [address] Kiel Vasquez MD [facility] S [facility] 2014 [place] [address] 12/16/2024 11:00 AM CDT Office Visit [facility] HEART AND VASCULAR EP AT [address] [place] [address] Demetrius Bowling DNP [address] [place] [address] 2014 [place] [address] 02/05/2025 10:45 AM CDT Telephone Check Up [facility] Heart and Vascular At [address] 2014 [place] [address] 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, POT OPERATOR [address] [place] [address] documented as of this encounter Visit Diagnoses Diagnosis New onset atrial fibrillation- Primary Atrial fibrillation Paroxysmal atrial fibrillation- Primary Atrial fibrillation Paroxysmal A-fib Atrial fibrillation Paroxysmal A-fib Atrial fibrillation documented in this encounter Care Teams Contract Attorney Relationship Specialty Start Date End Date Aliza Bain MD [address] [place] [address] PCP - General Family Practice 07/29/20 11/21/21 documented as of this encounter
--- OUTSIDE RECORDS SUMMARY | 2024-07-01 00:44 | XMS_ITS | Encounter Summary ---
Author Organization [facility] [employer] [facility] Address [address] [place] [address] Care Team Providers Care Aquarium Tank Attendant Name Role Phone Aliza Bain MD Primary Care Provider Encounter Details Date Type Department Care Team (Late st Contact Info) Description 12/02/2020 Orders Only [facility] Oncology and Hematology - Brandon [address] [place] [address] Nahid Hickman MD [address] [employer] [address] [place] [address] Malignant neoplasm of right upper [...] st Contact Info) Description 2024 11:00 AM ICE CREAM SERVER Appointment [facility] [address] [place] [address] 07/21/2024 9:45 AM ICE CREAM SERVER Appointment [facility] Floor Specialist [address] [place] [address] Kiel Vasquez MD [address] Sanjeev 2014 [place] [address] 07/21/2024 9:53 AM ICE CREAM SERVER Hospital Encounter [facility] Floor Specialist [address] [place] [address] Kiel Vasquez MD [address] Sanjeev 2014 [place] [address] Paroxysmal A-fib 07/21/2024 9:53 AM ICE CREAM SERVER - 07/21/2024 11:46 AM ICE CREAM SERVER Surgery [facility] Floor Specialist [address] [place] [phone] Kiel Vasquez MD [address] [place] [address] 2014 [place] [address] Left atrial appendage closure percutaneous 07/28/2024 8:30 AM ICE CREAM SERVER Office Visit [facility] Oncology and Hematology - Brandon 2227 [facility] 200 [place] [address] Nahid Hickman MD [address] [facility] [address] [place] [address] 09/09/2024 1:00 PM CDT Office Visit [facility] Heart and Vascular At [address] [place] [address] Kiel Vasquez MD [address] [place] [address] 2014 [place] [address] 12/16/2024 11:00 AM CDT Office Visit [facility] HEART AND VASCULAR EP AT [address] [place] [address] Demetrius Bowling DNP [address] [place] [address] 2014 [place] [address] 02/05/2025 10:45 AM CDT Telephone Check Up [facility] Heart and Vascular At [address] [place] [address] 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 FNP [address] [place] [phone] documented as of this encounter Visit Diagnoses Diagnosis Malignant neoplasm of right upper lobe of lung Malignant neoplasm of upper lobe, bronchus or lung Paroxysmal atrial fibrillation- Primary Atrial fibrillation Paroxysmal A-fib Atrial fibrillation Paroxysmal A-fib Atrial fibrillation documented in this encounter Care Teams Aquarium Tank Attendant Relationship Specialty Start Date End Date Aliza Bain MD [address] [place] [address] PCP - General Family Practice 07/29/20 11/21/21 documented as of this encounter
--- OUTSIDE RECORDS SUMMARY | 2024-07-01 00:44 | XMS_ITS | Encounter Summary ---
Author Organization [facility] Address [address] [place] [address] Care Team Providers Care Social Insurance Specialist Name Role Phone Aliza Bain MD Primary Care Provider Encounter Details Date Type Department Care Team (Late st Contact Info) Description 06/14/2021 Orders Only [facility] Oncology and Hematology - Brandon [address] [place] [address] Lisset Dean Malignant neoplasm of upper lobe of right [...] COVID-19? No / Unsure 06/16/2021 12:22 PM SILVER CLEANER documented as of this encounter Plan of Treatment Upcoming Encounters Date Type Department Care Team (Late st Contact Info) Description 2024 11:00 AM SILVER CLEANER Appointment [facility] [address] [place] [address] 07/21/2024 9:45 AM SILVER CLEANER Appointment [facility] Liquefaction And Regasification Helper [address] [place] [address] Kiel Vasquez MD [address] [place] [address] 07/21/2024 9:53 AM SILVER CLEANER Hospital Encounter [facility] Liquefaction And Regasification Helper [address] [place] [phone] Kiel Vasquez MD [address] San[address] 2014 [place] [address] Paroxysmal A-fib 07/21/2024 9:53 AM SILVER CLEANER - 07/21/2024 11:46 AM SILVER CLEANER Surgery [facility] Liquefaction And Regasification Helper [address] [place] [phone] Kiel Vasquez MD [address] [place] [address] 2014 [place] [address] Left atrial appendage closure percutaneous 07/28/2024 8:30 AM SILVER CLEANER Office Visit [facility] Oncology and Hematology - Brandon 2227 [facility] 200 [place] [address] Nahid Hickman MD 2[address] [facility] [address] [place] [address] 09/09/2024 1:00 PM CDT Office Visit [facility] Heart and Vascular At [address] [place] [address] Kiel Vasquez MD [address] [place] [address] 2014 [place] [address] 12/16/2024 11:00 AM CDT Office Visit [facility] HEART AND VASCULAR EP AT [address] [place] [address] Demetrius Bowling DNP [address] [place] [address] 2014 [place] [address] 02/05/2025 10:45 AM CDT Telephone Check Up [facility] Heart and Vascular At [address] [place] [address] 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 FNP [address] [place] [address] documented as of this encounter Visit Diagnoses Diagnosis Malignant neoplasm of upper lobe of right lung Malignant neoplasm of upper lobe, bronchus or lung Paroxysmal atrial fibrillation- Primary Atrial fibrillation Paroxysmal A-fib Atrial fibrillation Paroxysmal A-fib Atrial fibrillation documented in this encounter Care Teams Social Insurance Specialist Relationship Specialty Start Date End Date Aliza Bain MD [address] [place] [address] PCP - General Family Practice 07/29/20 11/21/21 documented as of this encounter
--- OUTSIDE RECORDS SUMMARY | 2024-07-01 00:44 | XMS_ITS | Encounter Summary ---
Author Organization [facility] [employer] [facility] Address [address] [place] [address] Care Team Providers Care Side Seam Machine Operator Name Role Phone Aliza Bain MD Primary Care Provider Reason for Visit * Reason Onset Date Comments Needs Orders Written 01/06/2021 Encounter Details Date Type Department Care Team (Late st Contact Info) Description 01/06/2021 Telephone [facility] Oncology and Hematology - [place] 2227 [facility] 200 [place] [address] Nahid Hickman MD 2227 [facility] [address] [place] [address] Needs Orders Written Social History Tobacco Use Types Packs/Day Years [...] st Contact Info) Description 2024 11:00 AM WELDING EQUIPMENT REPAIRER Appointment [facility] [address] [place] [address] [address] [place] [address] 07/21/2024 9:45 AM WELDING EQUIPMENT REPAIRER Appointment [facility] Sign Language Instructor [address] [place] [address] Kiel Vasquez MD [address] Sanjeev 2014 [place] [address] 07/21/2024 9:53 AM WELDING EQUIPMENT REPAIRER Hospital Encounter [facility] Sign Language Instructor [address] [place] [address] Kiel Vasquez MD [address] [facility] 2014 [place] [address] Paroxysmal A-fib 07/21/2024 9:53 AM WELDING EQUIPMENT REPAIRER - 07/21/2024 11:46 AM WELDING EQUIPMENT REPAIRER Surgery [facility] Sign Language Instructor [address] [place] [address] Kiel Vasquez MD [address] [facility] 2014 [place] [address] Left atrial appendage closure percutaneous 07/28/2024 8:30 AM WELDING EQUIPMENT REPAIRER Office Visit [facility] Oncology and Hematology - [place] 2227 [facility] 200 [place] [address] Nahid Hickman MD 2227 [facility] [address] [place] [address] 09/09/2024 1:00 PM CDT Office Visit [facility] Heart and Vascular At [address] 2014 [place] [address] Kiel Vasquez MD [facility] S [facility] 2014 [place] [address] 12/16/2024 11:00 AM CDT Office Visit [facility] HEART AND VASCULAR EP AT [address] 2014 [place] [address] Demetrius Bowling DNP [address] [place] [address] 2014 [place] [address] 02/05/2025 10:45 AM CDT Telephone Check Up [facility] Heart and Vascular At [address] 2014 [place] [address] 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, BROADCAST SYSTEMS ENGINEER [address] [place] [address] Scheduled Orders Name Type Priority Associated Diagnoses Orde r Schedule CBC WITH DIFFERENTIAL Lab Stat MGUS (monoclonal gammopathy of unknown significance) Expected: 01/06/2021, Expires: 01/06/2022 COMPREHENSIVE METABOLIC PANEL Lab Stat MGUS (monoclonal gammopathy of unknown significance) Expected: 01/06/2021, Expires: 01/06/2022 IMMUNOGLOBULINS IGG IGA IGM Lab Routine MGUS (monoclonal gammopathy of unknown significance) Expected: 01/06/2021, Expires: 01/06/2022 PROTEIN ELECTROPHORESIS W/REFLEX,SERUM Lab Routine MGUS (monoclonal gammopathy of unknown significance) Expected: 01/06/2021, Expires: 01/06/2022 documented as of this encounter Visit Diagnoses Diagnosis MGUS (monoclonal gammopathy of unknown significance)- Primary Monoclonal paraproteinemia Paroxysmal atrial fibrillation- Primary Atrial fibrillation Paroxysmal A-fib Atrial fibrillation Paroxysmal A-fib Atrial fibrillation documented in this encounter Care Teams Side Seam Machine Operator Relationship Specialty Start Date End Date Aliza Bain MD [address] [place] [address] PCP - General Family Practice 07/29/20 11/21/21 documented as of this encounter
--- OUTSIDE RECORDS SUMMARY | 2024-07-01 00:44 | XMS_ITS | Encounter Summary ---
Author Organization [facility] Address [address] [facility] Attn: Epic Prelude ADT STU POLK [address] Care Team Providers Care Contracts Law Professor Name Role Phone Aliza Bain MD Primary Care Provider Encounter Details Date Type Department Care Team (Latest Contact Info) Description 05/02/2021 Travel Social History Tobacco Use Types Packs/Day [...] and Family Not on file 07/29/2020 Attends Church Services Not on file 07/29 Do you [...] have Coronavirus / COVID-19? No / Unsure 05/02/2021 11:27 AM MECHANIC ASSISTANT documented as of this encounter Plan of Treatment Upcoming Encounters Date Type Department Care Team (Late st Contact Info) Description 2024 11:00 AM MECHANIC ASSISTANT Appointment [facility] S [facility] Manjit [address] [place] [address] 07/21/2024 9:45 AM MECHANIC ASSISTANT Appointment [facility] Lighting Designer [address] [place] [address] Kiel Vasquez MD [address] [facility] 2014 [place] [address] 07/21/2024 9:53 AM MECHANIC ASSISTANT Hospital Encounter [facility] Lighting Designer [address] [place] [address] Kiel Vasquez MD [address] [place] [address] Jesse Lackey-shirley 07/21/2024 9:53 AM MECHANIC ASSISTANT - 07/21/2024 11:46 AM MECHANIC ASSISTANT Surgery [facility] Lighting Designer [address] [place] [address] Kiel Vasquez MD [address] [place] [address] 2014 [place] [address] Left atrial appendage closure percutaneous 07/28/2024 8:30 AM MECHANIC ASSISTANT Office Visit [facility] Oncology and Hematology - [place] 2227 [facility] 200 [place] [address] Nahid Hickman MD 2227 [facility] [address] [place] [address] 09/09/2024 1:00 PM CDT Office Visit [facility] Heart and Vascular At [address] 2014 [place] [address] Kiel Vasquez MD [address] [place] [address] 2014 [place] [address] 12/16/2024 11:00 AM CDT Office Visit [facility] HEART AND VASCULAR EP AT [address] 2014 [place] [address] Demetrius Bowling DNP [address] [place] [address] 2014 [place] [address] 02/05/2025 10:45 AM CDT Telephone Check Up [facility] Heart and Vascular At [address] 2014 [place] [address] 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 FNP [address] [place] [phone] documented as of this encounter Visit Diagnoses Not on filedocumented in this encounter Care Teams Contracts Law Professor Relationship Specialty Start Date End Date Aliza Bain MD [address] [place] [address] PCP - General Family Practice 07/29/20 11/21/21 documented as of this encounter
--- OUTSIDE RECORDS SUMMARY | 2024-07-01 00:44 | XMS_ITS | Encounter Summary ---
Author Organization [facility] [employer] [facility] Address [address] [place] [address] Care Team Providers Care Lithographer Helper Name Role Phone Aliza Bain MD Primary Care Provider Reason for Visit * Reason Comments Medication Refill Encounter Details Date Type Department Care Team (Late st Contact Info) Description 02/12/2021 Refill [facility] Oncology and Hematology - [place] 2227 [facility] 200 [place] [address] Nahid Hickman MD 2227 [facility] [address] [place] [address] New onset atrial fibrillation Social History Tobacco [...] and Family Not on file 07/29/2020 Attends Orthodox Services Not on file 07/29 Do you belong to any clubs o r organizations such as islam groups, unions, fraternal or athletic groups, or [...] st Contact Info) Description 2024 11:00 AM FLOOR TECHNICIAN Appointment [facility] [address] [place] [address] [place] [address] 07/21/2024 9:45 AM FLOOR TECHNICIAN Appointment [facility] Patient Care Technician Instructor [address] [place] [address] Kiel Vasquez MD [address] Sanjeev 2014 [place] [address] 07/21/2024 9:53 AM FLOOR TECHNICIAN Hospital Encounter [facility] Patient Care Technician Instructor [address] [place] [address] Kiel Vasquez MD [address] Sanjeev 2014 [place] [address] Paroxysmal A-fib 07/21/2024 9:53 AM FLOOR TECHNICIAN - 07/21/2024 11:46 AM FLOOR TECHNICIAN Surgery [facility] Patient Care Technician Instructor [address] [place] [phone] Kiel Vasquez MD [address] [place] [address] 2014 [place] [address] Left atrial appendage closure percutaneous 07/28/2024 8:30 AM FLOOR TECHNICIAN Office Visit [facility] Oncology and Hematology - [place] 2227 [facility] 200 [place] [address] Nahid Hickman MD 2227 [facility] [address] [place] [address] 09/09/2024 1:00 PM CDT Office Visit [facility] Heart and Vascular At [address] [place] [address] Kiel Vasquez MD [address] [place] [address] 2014 [place] [address] 12/16/2024 11:00 AM CDT Office Visit [facility] HEART AND VASCULAR EP AT [address] [place] [address] Demetrius Bowling DNP [address] [place] [address] 2014 [place] [address] 02/05/2025 10:45 AM CDT Telephone Check Up [facility] Heart and Vascular At [address] [place] [address] 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 FNP [address] [place] [address] documented as of this encounter Visit Diagnoses Diagnosis New onset atrial fibrillation Atrial fibrillation Paroxysmal atrial fibrillation- Primary Atrial fibrillation Paroxysmal A-fib Atrial fibrillation Paroxysmal A-fib Atrial fibrillation documented in this encounter Care Teams Lithographer Helper Relationship Specialty Start Date End Date Aliza Bain MD [address] [place] [address] PCP - General Family Practice 07/29/20 11/21/21 documented as of this encounter
--- OUTSIDE RECORDS SUMMARY | 2024-07-01 00:44 | XMS_ITS | Encounter Summary ---
Author Organization [facility] Address [address] [place] [address] Care Team Providers Care Process Manufacturing Engineer Name Role Phone Aliza Bain MD Primary Care Provider Reason for Visit * Reason Onset Date Comments Information 06/30/2021 Encounter Details Date Type Department Care Team (Late st Contact Info) Description 06/30/2021 Telephone [facility] Heart and Vascular At [place] [address] [facility] [address] [place] [address] Kiel Vasquez MD [address] [place] [address] 2014 [place] [address] Information Social History Tobacco Use [...] any clubs o r organizations such as episcopalian groups, unions, fraternal or athletic groups, or [...] have Coronavirus / COVID-19? No / Unsure 06/20/2021 10:13 AM CABINET PROFESSIONAL documented as of this encounter Miscellaneous Notes * Telephone Encounter - Moni Curry RN - 07/01/2021 8:46 AM CST Review chart of patient ED visit. Stayed overnight for observation. NET PROFESSIONAL * Telephone Encounter - Celeste Bruno - 06/30/2021 2:15 PM CST Pt called and report of feeling Afib and chest discomfort last night, as of now she's feeling dizzyand SOB, their on the way to [facility]. NET PROFESSIONAL documented in this encounter Plan of Treatment Upcoming Encounters Date Type Department Care Team (Late st Contact Info) Description 2024 11:00 AM CABINET PROFESSIONAL Appointment [facility] [address] [place] [address] 07/21/2024 9:45 AM CABINET PROFESSIONAL Appointment [facility] Handtools Repairer [address] [place] [address] Kiel Vasquez MD [address] [facility] 2014 [place] [address] 07/21/2024 9:53 AM CABINET PROFESSIONAL Hospital Encounter [facility] Handtools Repairer [address] [place] [address] Kiel Vasquez MD [address] [facility] 2014 [place] [address] Paroxysmal A-fib 07/21/2024 9:53 AM CABINET PROFESSIONAL - 07/21/2024 11:46 AM CABINET PROFESSIONAL Surgery [facility] Handtools Repairer [address] [place] [address] Kiel Vasquez MD [address] [facility] 2014 [place] [address] Left atrial appendage closure percutaneous 07/28/2024 8:30 AM CABINET PROFESSIONAL Office Visit [facility] Oncology and Hematology - [place] [address] [place] [address] 200 [place] [address] Nahid Hickman MD 2[address] [facility] [address] [place] [address] 09/09/2024 1:00 PM CDT Office Visit [facility] Heart and Vascular At [facility] [address] [facility] [address] [place] [address] Kiel Vasquez MD [address] [facility] 2014 [place] [address] 12/16/2024 11:00 AM CDT Office Visit [facility] HEART AND VASCULAR EP AT [address] [place] [address] Demetrius Bowling DNP [address] [facility] 2014 [place] [address] 02/05/2025 10:45 AM CDT Telephone Check Up [facility] Heart and Vascular At [address] 2014 [place] [address] 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, DIRECTOR OF SCIENTIFIC RESEARCH [address] [place] [address] documented as of this encounter Visit Diagnoses Not on filedocumented in this encounter Care Teams Process Manufacturing Engineer Relationship Specialty Start Date End Date Aliza Bain MD [address] [place] [address] PCP - General Family Practice 07/29/20 11/21/21 documented as of this encounter
--- OUTSIDE RECORDS SUMMARY | 2024-07-01 00:44 | XMS_ITS | Encounter Summary ---
Author Organization [facility] Address [address] [place] [address] Care Team Providers Care Search Engine Marketing Specialist Name Role Phone Aliza Bain MD Primary Care Provider Reason for Referral * Eval and Treat (Routine) - Closed Specialty Diagnoses / Procedures Referred By Contact Referred To Contact Clinical Cardiac Electrophysiology / Electrophysiology Diagnoses New onset atrial fibrillation Palpitations Kiel Vasquez MD [address] [facility] 2014 [place] [address] Melita Woods MD NO ADDRESS ON FILE Referral ID Status Reason Start Date Expiration Date V isits Requested Visits Authorized [id number] Closed Ordering Dept to Review 05/20/2021 05/20/2022 1 1 LE DEVICE ENGINEER Reason for Visit * Reason Onset Date Comments refer to EP 05/20/2021 Encounter Details Date Type Department Care Team (Late st Contact Info) Description 05/20/2021 Telephone [facility] Heart and Vascular At [facility] [address] [facility] [address] [place] [address] Kiel Vasquez MD [address] [facility] 2014 [place] [address] refer to EP Social History Tobacco Use Types Packs/Day Years [...] COVID-19? No / Unsure 05/02/2021 11:27 AM MOBILE DEVICE ENGINEER documented as of this encounter Miscellaneous Notes * Telephone Encounter - LeelaMelanie martinez RN - 05/20/2021 8:14 AM CST Referral ordered. Left a message for pt to notify that EP will be calling her to schedule appt. Routing this message to EP to schedule. LE DEVICE ENGINEER * Telephone Encounter - Melanie Swenson RN - 05/20/2021 8:13 AM CST ----- Message from Kiel Vasquez MD sent at 05/20/2021 8:08 AM MOBILE DEVICE ENGINEER ----- Having a lot of afib on monitor, symptomatic Can we refer her to EP for eval?? Thanks JG LE DEVICE ENGINEER documented in this encounter Plan of Treatment Upcoming Encounters Date Type Department Care Team (Late st Contact Info) Description 2024 11:00 AM MOBILE DEVICE ENGINEER Appointment [facility] [address] [place] [address] 07/21/2024 9:45 AM MOBILE DEVICE ENGINEER Appointment [facility] [address] [place] [address] Kiel Vasquez MD [address] Sanjeev 2014 [place] [address] 07/21/2024 9:53 AM MOBILE DEVICE ENGINEER Hospital Encounter [facility] [address] [place] [address] Kiel Vasquez MD [address] Sanje[address] 2014 [place] [address] Jesse Lackey-shirley 07/21/2024 9:53 AM MOBILE DEVICE ENGINEER - 07/21/2024 11:46 AM MOBILE DEVICE ENGINEER Surgery [facility] [address] [place] [address] Kiel Vasquez MD [address] Sanjeev 2014 [place] [address] Left atrial appendage closure percutaneous 07/28/2024 8:30 AM MOBILE DEVICE ENGINEER Office Visit [facility] Oncology and Hematology - [place] 2227 [facility] 200 [place] [address] Nahid Hickman MD 2227 [facility] [address] [place] [address] 09/09/2024 1:00 PM CDT Office Visit [facility] Heart and Vascular At [address] 2014 [place] [address] Kiel Vasquez MD [address] [place] [address] 2014 [place] [address] 12/16/2024 11:00 AM CDT Office Visit [facility] HEART AND VASCULAR EP AT [address] 2014 [place] [address] Demetrius Bowling DNP [address] [place] [address] 2014 [place] [address] 02/05/2025 10:45 AM CDT Telephone Check Up [facility] Heart and Vascular At [address] [place] [address] 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 FNP [address] [place] [address] Scheduled Referrals Name Type Priority Associated Diagnoses Order Schedule AMB REFERRAL TO CARDIAC ELECTROPHYSIOLOGY Outpatient Referral Routine New onset atrial fibrillation Palpitations Ordered: 05/20/2021 documented as of this encounter Visit Diagnoses Diagnosis New onset atrial fibrillation- Primary Atrial fibrillation Palpitations Paroxysmal atrial fibrillation- Primary Atrial fibrillation Paroxysmal A-fib Atrial fibrillation Paroxysmal A-fib Atrial fibrillation documented in this encounter Care Teams Search Engine Marketing Specialist Relationship Specialty Start Date End Date Aliza Bain MD [address] [place] [address] PCP - General Family Practice 07/29/20 11/21/21 documented as of this encounter
--- OUTSIDE RECORDS SUMMARY | 2024-07-01 00:44 | XMS_ITS | Encounter Summary ---
Author Organization [facility] Address [address] [facility] Attn: Epic Prelude ADT STU POLK [address] Care Team Providers Care Port Cdl A Driver Name Role Phone Aliza Bain MD Primary Care Provider Encounter Details Date Type Department Care Team (Latest Contact Info) Description 06/20/2021 Travel Social History Tobacco Use Types Packs/Day [...] COVID-19? No / Unsure 06/20/2021 10:13 AM SUPERVISOR CHASSIS ASSEMBLY documented as of this encounter Plan of Treatment Upcoming Encounters Date Type Department Care Team (Late st Contact Info) Description 2024 11:00 AM SUPERVISOR CHASSIS ASSEMBLY Appointment [facility] Manjit [address] [place] [address] 07/21/2024 9:45 AM SUPERVISOR CHASSIS ASSEMBLY Appointment [facility] Manager Code [address] [place] [address] Kiel Vasquez MD [address] [facility] 2014 [place] [address] 07/21/2024 9:53 AM SUPERVISOR CHASSIS ASSEMBLY Hospital Encounter [facility] Manager Code [address] [place] [address] Kiel Vasquez MD [address] [facility] 2014 [place] [address] Jesse Lackey-shirley 07/21/2024 9:53 AM SUPERVISOR CHASSIS ASSEMBLY - 07/21/2024 11:46 AM SUPERVISOR CHASSIS ASSEMBLY Surgery [facility] Manager Code [address] [place] [address] Kiel Vasquez MD [address] [place] [address] 2014 [place] [address] Left atrial appendage closure percutaneous 07/28/2024 8:30 AM SUPERVISOR CHASSIS ASSEMBLY Office Visit [facility] Oncology and Hematology - [place] 2227 [facility] 200 [place] [address] Nahid Hickman MD 2[address] [facility] [address] [place] [address] 09/09/2024 1:00 PM CDT Office Visit [facility] Heart and Vascular At [address] [place] [address] Kiel Vasquez MD [address] [place] [address] 2014 [place] [address] 12/16/2024 11:00 AM CDT Office Visit [facility] HEART AND VASCULAR EP AT [address] [place] [address] Demetrius Bowling DNP [address] [place] [address] 2014 [place] [address] 02/05/2025 10:45 AM CDT Telephone Check Up [facility] Heart and Vascular At [address] [place] [address] 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 FNP [address] [place] [phone] documented as of this encounter Visit Diagnoses Not on filedocumented in this encounter Care Teams Port Cdl A Driver Relationship Specialty Start Date End Date Aliza Bain MD [address] [place] [address] PCP - General Family Practice 07/29/20 11/21/21 documented as of this encounter
--- OUTSIDE RECORDS SUMMARY | 2024-07-01 00:44 | XMS_ITS | Encounter Summary ---
Author Organization [facility] Address [address] [facility] Attn: Epic Prelude ADT STU POLK [phone] Care Team Providers Care Checker Dump Grounds Name Role Phone Aliza Bain MD Primary Care Provider Encounter Details Date Type Department Care Team (Latest Contact Info) Description 12/14/2020 Travel Social History Tobacco Use Types Packs/Day [...] and Family Not on file 07/29/2020 Attends Taoism Services Not on file 07/29 Do you [...] st Contact Info) Description 2024 11:00 AM ORTHOPEDIC PODIATRIST Appointment [facility] S [facility] Manjit [address] [place] [address] 07/21/2024 9:45 AM ORTHOPEDIC PODIATRIST Appointment [facility] Dial Mounter [address] [place] [address] Kiel Vasquez MD [address] [facility] 2014 [place] [address] 07/21/2024 9:53 AM ORTHOPEDIC PODIATRIST Hospital Encounter [facility] Dial Mounter [address] [place] [address] Kiel Vasquez MD [address] [facility] 2014 [place] [address] Jesse Lackey-fib 07/21/2024 9:53 AM ORTHOPEDIC PODIATRIST - 07/21/2024 11:46 AM ORTHOPEDIC PODIATRIST Surgery [facility] Dial Mounter [address] [place] [address] Kiel Vasquez MD [address] [place] [address] 2014 [place] [address] Left atrial appendage closure percutaneous 07/28/2024 8:30 AM ORTHOPEDIC PODIATRIST Office Visit [facility] Oncology and Hematology - [place] 2[address] [facility] 200 [place] [address] Nahid Hickman MD 2227 [facility] [address] [place] [address] 09/09/2024 1:00 PM CDT Office Visit [facility] Heart and Vascular At [address] [place] [address] Kiel Vasquez MD [address] [place] [address] 2014 [place] [address] 12/16/2024 11:00 AM CDT Office Visit [facility] HEART AND VASCULAR EP AT [address] [place] [address] Demetrius Bowling DNP [address] [place] [address] 2014 [place] [address] 02/05/2025 10:45 AM CDT Telephone Check Up [facility] Heart and Vascular At [address] [place] [address] 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 FNP [address] [place] [phone] documented as of this encounter Visit Diagnoses Not on filedocumented in this encounter Care Teams Checker Dump Grounds Relationship Specialty Start Date End Date Aliza Bain MD [address] [place] [address] PCP - General Family Practice 07/29/20 11/21/21 documented as of this encounter
--- OUTSIDE RECORDS SUMMARY | 2024-07-01 00:44 | XMS_ITS | Encounter Summary ---
Author Organization [facility] Address [address] [place] [address] Care Team Providers Care Clinical Biochemist Name Role Phone Aliza Bain MD Primary Care Provider Encounter Details Date Type Department Care Team (Latest Contact Info) Description 05/02/2021 11:30 AM SECURITY CHIEF MUSEUM - 05/02/2021 11:59 PM [facility] Hospital Encounter [facility] Non Invasive Cardiology [address] [place] [address] Kiel Vasquez MD [address] [facility] 2014 [place] [address] Discharge Disposition: Home or Self [...] COVID-19? No / Unsure 05/02/2021 11:27 AM SECURITY CHIEF MUSEUM documented as of this encounter Medications at [...] 2 times daily. 60 Tablet 03/31/2021 07/25/2021 omeprazole (PriLOSEC) 40 mg Capsule, Delayed Release(E.C.) 20 mg. 02/17/2021 07/01/2021 glucosamine sulfate 500 mg Capsule Take 500 mg by mouth. 06/22/2022 hydroCHLOROthiazide 25 mg tablet TAKE 1 TABLET BY MOUTH EVERY DAY 05/07/2020 10/30/2023 documented as of this encounter Procedure Notes * Sergey Acosta MD - 05/18/2021 3:14 PM CSTAssociated Order(s): HOLTER MONITOR [place], [place] [address] Cardiac Event Monitor Report CSN: [id number] INDICATION Paroxysmal atrial fibrillation. INTERPRETATION 1. The patient was monitored from May 02 to May 15, 2021. 2. Baseline transmission May 02 at 12:01 reveals atrial fibrillation at 93 beats per minute. 3. Several symptomatic transmissions for lightheadedness/shortness of breath/heart racing, correlate to atrial fibrillation with heart rates ranging 93 to 128 beats per minute. 4. There were 14 additional autotriggered/asympotmatic transmissions revealing atrial fibrillation with heart rates ranging 84 to 166 beats per minute. BTC:MEDQ DID: [id number] Dictated by: Sergey Acosta MD CC: Kiel Vasquez MD RITY CHIEF MUSEUM documented in this encounter Plan of Treatment Upcoming Encounters Date Type Department Care Team (Late st Contact Info) Description 2024 11:00 AM SECURITY CHIEF MUSEUM Appointment [facility] [address] [place] [address] 07/21/2024 9:45 AM SECURITY CHIEF MUSEUM Appointment [facility] Senior Wealth Advisor [address] [place] [address] Kiel Vasquez MD [address] [address] 07/21/2024 9:53 AM SECURITY CHIEF MUSEUM Hospital Encounter [facility] Senior Wealth Advisor [address] [place] [address] Kiel Vasquez MD [address] [facility] 2014 [place] [address] Paroxysmal A-fib 07/21/2024 9:53 AM SECURITY CHIEF MUSEUM - 07/21/2024 11:46 AM SECURITY CHIEF MUSEUM Surgery [facility] Senior Wealth Advisor [address] [place] [address] Kiel Vasquez MD [facility] S [facility] 2014 [place] [address] Left atrial appendage closure percutaneous 07/28/2024 8:30 AM SECURITY CHIEF MUSEUM Office Visit [facility] Oncology and Hematology - [place] [address] [address] Nahid Hickman MD [address] [facility] [address] [place] [address] 09/09/2024 1:00 PM CDT Office Visit [facility] Heart and Vascular At [address] [place] [address] [facility] 2014 [place] [address] 12/16/2024 11:00 AM CDT Office Visit [facility] HEART AND VASCULAR EP AT [address] [place] [address] [facility] 2014 [place] [address] 02/05/2025 10:45 AM CDT Telephone Check Up [facility] Heart and Vascular At [facility] [address] [facility] [address] [place] [address] 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, CAT [address] [place] [phone] documented as of this encounter Procedures Procedure Name Priority Date/Time Associated Diagnosis Comments HOLTER MONITOR 05/18/2021 3:14 PM SECURITY CHIEF MUSEUM documented in this encounter Results * HOLTER MONITOR (05/18/2021 3:14 PM SECURITY CHIEF MUSEUM) Narrative Procedure Note Sergey Acosta MD - 05/18/2021 3:14 PM CST [place], [place] [address] Cardiac Event Monitor Report CSN: [id number] INDICATION Paroxysmal atrial fibrillation. INTERPRETATION 1. The patient was monitored from May 02 to May 15, 2021. 2. Baseline transmission May 02 at 12:01 reveals atrialfibrillation at 93 beats per minute. 3. Several symptomatic transmissions for lightheadedness/shortness ofbreath/heart racing, correlate to atrial fibrillation with heart ratesranging 93 to 128 beats per minute. 4. There were 14 additional autotriggered/asympotmatic transmissionsrevealing atrial fibrillation with heart rates ranging 84 to 166 beats perminute. BTC:MEDQ DID:[id number] Dictated by: Sergey Acosta MD CC: Kiel Vasquez MD Sergey Acosta MD CARDIAC SERVICES ORD ERABLES [facility] HEART AND VASCULAR CLIA #[id number] [address] [facility] [address] [place] [address] documented in this encounter Visit Diagnoses Not on filedocumented in this encounter Care Teams Clinical Biochemist Relationship Specialty Start Date End Date Aliza Bain MD [address] [place] [address] PCP - General Family Practice 07/29/20 11/21/21 documented as of this encounter
--- OUTSIDE RECORDS SUMMARY | 2024-07-01 00:44 | XMS_ITS | Encounter Summary ---
Author Organization [facility] [employer] [facility] Address [address] [place] [address] Care Team Providers Care Environmental Projects Advisor Name Role Phone Aliza Bain MD Primary Care Provider Encounter Details Date Type Department Care Team (Late st Contact Info) Description 03/10/2021 Orders Only [facility] Oncology and Hematology - [place] [address] [place] [address] Provider, Abstract NO ADDRESS ON [...] st Contact Info) Description 2024 11:00 AM ASSISTANT TRACK AND FIELD COACH Appointment [facility] [address] [place] [address] 07/21/2024 9:45 AM ASSISTANT TRACK AND FIELD COACH Appointment [facility] Software Build Engineer [address] [place] [address] Kiel Vasquez MD [address] [facility] [address] [place] [address] 07/21/2024 9:53 AM ASSISTANT TRACK AND FIELD COACH Hospital Encounter [facility] Software Build Engineer [address] [place] [address] Kiel [facility]quez MD [address] [facility] [address] [place] [address] Jesse Lackey-fib 07/21/2024 9:53 AM ASSISTANT TRACK AND FIELD COACH - 07/21/2024 11:46 AM ASSISTANT TRACK AND FIELD COACH Surgery [facility] Software Build Engineer [address] [place] [address] Kiel Vasquez MD [facility] S [facility] 2014 [place] [address] Left atrial appendage closure percutaneous 07/28/2024 8:30 AM ASSISTANT TRACK AND FIELD COACH Office Visit [facility] Oncology and Hematology - [address] [facility] 200 [place] [address] Nahid Hickman MD [address] [facility] [address] [place] [address] 09/09/2024 1:00 PM CDT Office Visit [facility] Heart and Vascular At [address] [place] [address] Kiel Vasquez MD [address] [place] [address] 2014 [place] [address] 12/16/2024 11:00 AM CDT Office Visit [facility] HEART AND VASCULAR EP AT [address] [place] [address] Demetrius Bowling DNP [address] [place] [address] 2014 [place] [address] 02/05/2025 10:45 AM CDT Telephone Check Up [facility] Heart and Vascular At [address] [place] [address] 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 FNP [address] [place] [address] documented as of this encounter Procedures Procedure Name Priority Date/Time Associated Diagnosis Comments CREATININE Routine 03/09/2021 documented in this encounter Results * CREATININE (03/09/2021) Blood Abstract Provider CHEMISTRY ORDERABLES documented in this encounter Visit Diagnoses Not on filedocumented in this encounter Care Teams Environmental Projects Advisor Relationship Specialty Start Date End Date Aliza Bain MD [address] [place] [address] PCP - General Family Practice 07/29/20 11/21/21 documented as of this encounter
--- OUTSIDE RECORDS SUMMARY | 2024-07-01 00:44 | XMS_ITS | Encounter Summary ---
Author Organization [facility] Address [address] [facility] Attn: Epic Prelude ADT STU POLK [address] Care Team Providers Care Rooming House Operator Name Role Phone Aliza Bain MD Primary Care Provider Encounter Details Date Type Department Care Team (Latest Contact Info) Description 10/05/2020 Travel Social History Tobacco Use Types Packs/Day [...] any clubs o r organizations such as scientologist groups, unions, fraternal or athletic groups, or [...] st Contact Info) Description 2024 11:00 AM PROJECT MANAGEMENT ENGINEER Appointment [facility] S [facility] Manjit [address] [place] [address] 07/21/2024 9:45 AM PROJECT MANAGEMENT ENGINEER Appointment [facility] Railway Signal Technician [address] [place] [address] Kiel Vasquez MD [address] [facility] 2014 [place] [address] 07/21/2024 9:53 AM PROJECT MANAGEMENT ENGINEER Hospital Encounter [facility] Railway Signal Technician [address] [place] [address] Kiel Vasquez MD [address] [facility] 2014 [place] [address] Jesse Lackey-fib 07/21/2024 9:53 AM PROJECT MANAGEMENT ENGINEER - 07/21/2024 11:46 AM PROJECT MANAGEMENT ENGINEER Surgery [facility] Railway Signal Technician [address] [place] [address] Kiel Vasquez MD [address] [place] [address] 2014 [place] [address] Left atrial appendage closure percutaneous 07/28/2024 8:30 AM PROJECT MANAGEMENT ENGINEER Office Visit [facility] Oncology and Hematology - [place] [address] [facility] 200 [place] [address] Nahid Hickman MD [address] [facility] [address] [place] [address] 09/09/2024 1:00 PM CDT Office Visit [facility] Heart and Vascular At [address] 2014 [place] [address] Kile Vasquez MD [address] [place] [address] 2014 [place] [address] 12/16/2024 11:00 AM CDT Office Visit [facility] HEART AND VASCULAR EP AT [address] [place] [address] Demetrius Bowling DNP [address] [place] [address] 2014 [place] [address] 02/05/2025 10:45 AM CDT Telephone Check Up [facility] Heart and Vascular At [address] 2014 [place] [address] 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 FNP [address] [place] [phone] documented as of this encounter Visit Diagnoses Not on filedocumented in this encounter Care Teams Rooming House Operator Relationship Specialty Start Date End Date Aliza Bain MD [address] [place] [address] PCP - General Family Practice 07/29/20 11/21/21 documented as of this encounter
--- OUTSIDE RECORDS SUMMARY | 2024-07-01 00:44 | XMS_ITS | Encounter Summary ---
Author Organization [facility] [employer] [facility] Address [address] [place] [address] Care Team Providers Care Developer Trading Systems Name Role Phone Aliza Bain MD Primary Care Provider Encounter Details Date Type Department Care Team (Late st Contact Info) Description 03/14/2021 Orders Only [facility] Oncology and Hematology - [address] [place] [phone] Lisset Dean MGUS (monoclonal gammopathy of unknown significance) Social [...] and Family Not on file 07/29/2020 Attends [employer] Services Not on file 07/29 Do you [...] st Contact Info) Description 2024 11:00 AM STUDENT MINISTRIES DIRECTOR Appointment [facility] S [facility] Manjit [address] [place] [address] 07/21/2024 9:45 AM STUDENT MINISTRIES DIRECTOR Appointment [facility] Medication Coordinator [address] [place] [address] Kiel Vasquez MD [address] 2014 [place] [address] 07/21/2024 9:53 AM STUDENT MINISTRIES DIRECTOR Hospital Encounter [facility] Medication Coordinator [address] [place] [address] Kiel Vasquez MD [address] 2014 [place] [address] Paroxysmal A-fib 07/21/2024 9:53 AM STUDENT MINISTRIES DIRECTOR - 07/21/2024 11:46 AM STUDENT MINISTRIES DIRECTOR Surgery [facility] Medication Coordinator [address] [place] [address] Kiel Vasquez MD [address] [place] [address] 2014 [place] [address] Left atrial appendage closure percutaneous 07/28/2024 8:30 AM STUDENT MINISTRIES DIRECTOR Office Visit [facility] Oncology and Hematology - [place] [address] [facility] 200 [place] [address] Nahid Hickman MD [address] [facility] [address] [place] [address] 09/09/2024 1:00 PM CDT Office Visit [facility] Heart and Vascular At [address] 2014 [place] [address] Kiel Vasquez MD [address] [place] [address] 2014 [place] [address] 12/16/2024 11:00 AM CDT Office Visit [facility] HEART AND VASCULAR EP AT [address] 2014 [place] [address] Demetrius Bowling DNP [address] [place] [address] 2014 [place] [address] 02/05/2025 10:45 AM CDT Telephone Check Up [facility] Heart and Vascular At [address] 2014 [place] [address] 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 FNP [address] [place] [phone] documented as of this encounter Visit Diagnoses Diagnosis MGUS (monoclonal gammopathy of unknown significance) Monoclonal paraproteinemia Paroxysmal atrial fibrillation- Primary Atrial fibrillation Paroxysmal A-fib Atrial fibrillation Paroxysmal A-fib Atrial fibrillation documented in this encounter Care Teams Developer Trading Systems Relationship Specialty Start Date End Date Aliza Bain MD [address] [place] [address] PCP - General Family Practice 07/29/20 11/21/21 documented as of this encounter
--- OUTSIDE RECORDS SUMMARY | 2024-07-01 00:44 | XMS_ITS | Encounter Summary ---
Author Organization [facility] [employer] [facility] Address [address] [place] [address] Care Team Providers Care Track Man Name Role Phone Aliza Bain MD Primary Care Provider Encounter Details Date Type Department Care Team (Late st Contact Info) Description 06/16/2021 Orders Only [facility] Oncology and Hematology - [place] [address] [place] [address] Provider, Abstract NO ADDRESS ON [...] COVID-19? No / Unsure 06/20/2021 10:13 AM REGIONAL VICE PRESIDENT SURGICAL SALES documented as of this encounter Plan of Treatment Upcoming Encounters Date Type Department Care Team (Late st Contact Info) Description 2024 11:00 AM REGIONAL VICE PRESIDENT SURGICAL SALES Appointment [facility] [address] [place] [address] 07/21/2024 9:45 AM REGIONAL VICE PRESIDENT SURGICAL SALES Appointment [facility] Knife Setter Grinder Machine [address] [place] [phone] Kiel Vasquez MD [address] 2014 [place] [address] 07/21/2024 9:53 AM REGIONAL VICE PRESIDENT SURGICAL SALES Hospital Encounter [facility] Knife Setter Grinder Machine [address] [place] [address] Kiel Vasquez MD [address] 2014 [place] [address] Paroxysmal A-fib 07/21/2024 9:53 AM REGIONAL VICE PRESIDENT SURGICAL SALES - 07/21/2024 11:46 AM REGIONAL VICE PRESIDENT SURGICAL SALES Surgery [facility] Knife Setter Grinder Machine [address] [place] [phone] Kiel Vasquez MD [address] [place] [address] 2014 [place] [address] Left atrial appendage closure percutaneous 07/28/2024 8:30 AM REGIONAL VICE PRESIDENT SURGICAL SALES Office Visit [facility] Oncology and Hematology - [place] [address] [facility] 200 [place] [address] Nahid Hickman MD [address] [facility] [address] [place] [address] 09/09/2024 1:00 PM CDT Office Visit [facility] Heart and Vascular At [address] [place] [address] Kiel Vasquez MD [address] [place] [address] 2014 [place] [address] 12/16/2024 11:00 AM CDT Office Visit [facility] HEART AND VASCULAR EP AT [address] [place] [address] Demetrius Bowling DNP [address] [place] [address] 2014 [place] [address] 02/05/2025 10:45 AM CDT Telephone Check Up [facility] Heart and Vascular At [address] [place] [address] 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 FNP [address] [place] [phone] documented as of this encounter Procedures Procedure Name Priority Date/Time Associated Diagnosis Comments HEMOGLOBIN A1C Routine 06/13/2021 documented in this encounter Results * HEMOGLOBIN A1C (06/13/2021) Blood Abstract Provider CHEMISTRY ORDERABLES documented in this encounter Visit Diagnoses Not on filedocumented in this encounter Care Teams Track Man Relationship Specialty Start Date End Date Aliza Bain MD [address] [place] [address] PCP - General Family Practice 07/29/20 11/21/21 documented as of this encounter
--- OUTSIDE RECORDS SUMMARY | 2024-07-01 00:44 | XMS_ITS | Encounter Summary ---
Author Organization [facility] [employer] [facility] Address [address] [place] [address] Care Team Providers Care Human Resources Administrator Name Role Phone Aliza Bain MD Primary Care Provider Reason for Visit * Reason Comments Follow Up 3 month f/u with lab s and CT * Eval and Treat (Routine) - Closed Specialty Diagnoses / Procedures Referred By Contac t Referred To Contact Oncology Diagnoses Malignant neoplasm of unspecified part of right bronchus or lung (CMS/HCC) Procedures Office visit level 3-5 Aliza Bain MD [address] [place] [address] [facility] Oncology And Hematology [place] [address] [place] [address] Referral ID Status Reason Start Date Expiration Date Visits Re quested Visits Authorized [id number] Closed 03/10/2021 09/06/2021 12 12 Encounter Details Date Type Department Care Team (Late st Contact Info) Description 06/20/2021 10:15 AM SECURITY SERVICES MANAGER Office Visit [facility] Oncology and Hematology [facility] [address] [place] [address] Nahid Hickman MD [address] [facility] [address] [place] [address] Malignant neoplasm of upper lobe [...] and Family Not on file 07/29/2020 Attends Confucianist Services Not on file 07/29 Do you belong to any clubs o r organizations such as yarsanism groups, unions, fraternal or athletic groups, or [...] COVID-19? No / Unsure 06/20/2021 10:13 AM SECURITY SERVICES MANAGER documented as of this encounter Last Filed Vital Signs Vital Sign Reading Time Taken Comments Blood Pressure 158/70 06/20/2021 10:36 AM SECURITY SERVICES MANAGER Pulse 83 06/20/2021 10:36 AM SECURITY SERVICES MANAGER Temperature 36.9 ??C (98.4 ??F) 06/20/2021 10:[address] Respiratory Rate - - Oxygen Saturation 96% 06/20/2021 10:36 AM SECURITY SERVICES MANAGER Inhaled Oxygen Concentration - - Weight 67 kg (147 lb 12.8 oz) 06/20/2021 10:36 A M SECURITY SERVICES MANAGER Height 160 cm (5' 3 ) 06/20/2021 10:36 AM SECURITY SERVICES MANAGER Body Mass Index 26.18 06/20/2021 10:36 AM SECURITY SERVICES MANAGER documented in this encounter Progress Notes * Nahid Hickman MD - 06/20/2021 11:01 AM CST HEMATOLOGY / ONCOLOGY PROGRESS NOTE [...] into the office for follow-up visit. She complain of tiredness and fatigue and some shortness of breath and dyspnea on exertion. Denies any chest pain. No other new complaints. Review of system Constitutional: denies fevers, sweats, complain of tiredness and fatigue HEENT: denies sinus congestion, hearing or vision problems Respiratory: denies cough,, complain of dyspnea on exertion Cardiovascular: denies chest pain, exertional chest pressure/discomfort, nausea, syncope, complain of shortness of breath and dyspnea on exertion GI: denies constipation, diarrhea, [...] TSH 1.17 creatinine 1 total bilirubin 0.3 Assessment: Plan: Patient Active Problem List Diagnosis Date Noted ??? MGUS (monoclonal gammopathy of unknown significance) [...] ALK gene rearrangement. CT chest done on June 13 showed no evidence of relapse of disease. We plan to see her back in 6months with repeat CT chest. Atrial fibrillation. Patient is on Eliquis. Patient is planning to have ablation therapy done. Anemia. Vitamin B12 level came back more than 1000. She is taking vitamin B12 5000 mg every other day. I will reduce to 3 times a week. History of MGUS. Repeat myeloma testing will be done in February 2022. TOBACCO COUNSELING She is not a tobacco user. 06/20/2021 Nahid Hickman MD RITY SERVICES MANAGER documented in this encounter Plan of Treatment Upcoming Encounters Date Type Department Care Team (Late st Contact Info) Description 2024 11:00 AM SECURITY SERVICES MANAGER Appointment [facility] [address] [place] [address] 07/21/2024 9:45 AM SECURITY SERVICES MANAGER Appointment [facility] [employer] [address] [place] [address] Kiel Vasquez MD [address] [facility] 2014 [place] [address] 07/21/2024 9:53 AM SECURITY SERVICES MANAGER Hospital Encounter [facility] [employer] [address] [place] [address] Kiel Vasquez MD [address] [place] [address] Paroxysmal A-fib 07/21/2024 9:53 AM SECURITY SERVICES MANAGER - 07/21/2024 11:46 AM SECURITY SERVICES MANAGER Surgery [facility] [employer] [address] [place] [address] Kiel Vasquez MD [address] [place] [address] Left atrial appendage closure percutaneous 07/28/2024 8:30 AM SECURITY SERVICES MANAGER Office Visit [facility] Oncology and Hematology - [place] [address] [facility] [address] [place] [address] Nahid Hickman MD [address] [facility] [address] [place] [address] 09/09/2024 1:00 PM CDT Office Visit [facility] Heart and Vascular At [address] [place] [address] Kiel Vasquez MD [address] [place] [address] 2014 [place] [address] 12/16/2024 11:00 AM CDT Office Visit [facility] HEART AND VASCULAR EP AT [address] [place] [address] Demetrius Bowling DNP [address] [place] [address] 2014 [place] [address] 02/05/2025 10:45 AM CDT Telephone Check Up [facility] Heart and Vascular At [address] [place] [address] 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 FNP [facility] [place] [address] documented as of this encounter Visit Diagnoses Diagnosis Malignant neoplasm of upper lobe of right lung- Primary Malignant neoplasm of upper lobe, bronchus or lung Paroxysmal atrial fibrillation- Primary Atrial fibrillation Paroxysmal A-fib Atrial fibrillation Paroxysmal A-fib Atrial fibrillation documented in this encounter Care Teams Human Resources Administrator Relationship Specialty Start Date End Date Aliza Bain MD [address] [place] [address] PCP - General Family Practice 07/29/20 11/21/21 documented as of this encounter
--- OUTSIDE RECORDS SUMMARY | 2024-07-01 00:44 | XMS_ITS | Encounter Summary ---
Author Organization [facility] Address [address] [place] [address] Care Team Providers Care Trial Examiner Name Role Phone Aliza Bain MD Primary Care Provider Reason for Visit * Reason Comments Establish Care Afib * Eval and Treat (Routine) - Closed Specialty Diagnoses / Procedures Referred By Contact Referred To Contact Clinical Cardiac Electrophysiology / Electrophysiology Diagnoses New onset atrial fibrillation Palpitations Kiel Vasquez MD [address] [facility] 2014 [place] [address] Melita Woods MD NO ADDRESS ON FILE Referral ID Status Reason Start Date Expiration Date V isits Requested Visits Authorized [id number] Closed Ordering Dept to Review 05/20/2021 05/20/2022 1 1 Encounter Details Date Type Department Care Team (Late st Contact Info) Description 06/13/2021 4:00 PM BITUMEN PLANT OPERATOR Office Visit [facility] HEART AND VASCULAR EP AT [place] [address] [facility] [address] [place] [address] Melita Woods MD NO ADDRESS ON FILE Persistent atrial fibrillation (Primary Dx); Benign hypertension Social [...] any clubs o r organizations such as gnosticist groups, unions, fraternal or athletic groups, or [...] COVID-19? No / Unsure 06/16/2021 12:22 PM BITUMEN PLANT OPERATOR documented as of this encounter Last Filed Vital Signs Vital Sign Reading Time Taken Comments Blood Pressure 160/80 06/13/2021 4:13 PM BITUMEN PLANT OPERATOR Pulse 99 06/13/2021 4:13 PM BITUMEN PLANT OPERATOR Temperature - - Respiratory Rate - - Oxygen Saturation 97% 06/13/2021 4:13 PM BITUMEN PLANT OPERATOR Inhaled Oxygen Concentration - - Weight 68 kg (150 lb) 06/13/2021 4:13 PM BITUMEN PLANT OPERATOR Height 160 cm (5' 3 ) 06/13/2021 4:13 PM BITUMEN PLANT OPERATOR Body Mass Index 26.57 06/13/2021 4:13 PM BITUMEN PLANT OPERATOR documented in this encounter Progress Notes * Melita Woods MD - 06/13/2021 4:23 PM CST CC: Atrial fibrillation HPI: Cassandra Martinez is a 75 y.o. female with past medical history [...] THORACOTOMY performed by Edinson Ferrell MD at [facility] OR ??? HX TONSILLECTOMY ??? HX TRIGGER FINGER REPAIR ??? MA RMVL LUNG OTHER THAN PNEUMONECTOMY 1 LOBE LOBECT Right 08/31/2020 LUNG LOBECTOMY performed by Edinson Ferrell MD at [facility] OR Family History Problem Relation Name Age of Onset ??? Heart Disease Father ??? Heart Disease Mother ??? Stroke Sister ??? Asthma Sister Current Outpatient Medications Medication Sig Dispense Refill ??? apixaban (Eliquis) 5 mg tablet Take 1 Tablet (5 mg) by mouth 2 times daily. 60 Tablet 0 ??? omeprazole (PriLOSEC) 40 mg Capsule, Delayed Release(E.C.) 20 mg. ??? HYDROcodone-acetaminophen (NORCO) 5-325 mg tablet Take [...] for this visit. Social History Tobacco Use ??? Smoking status: Former Smoker Packs/day: 0.50 Years: 40.00 Pack years: 20.00 Types: Cigarettes Quit date: 08/19/1999 Years since quittin.8 ??? Smokeless tobacco: Never Used Vaping Use ??? Vaping Use: Never used Substance Use Topics ??? Alcohol use: Yes Comment: occasional ??? Drug use: Never PHYSICAL EXAM Vitals: 06/13/21 1613 BP: (!) 160/80 Pulse: 99 SpO2: 97% Constitutional: Oriented to person, place, and time. [...] further assistance. This note was dictated using [employer] speech recognition and was not edited for errors. MEN PLANT OPERATOR * Richard Adams - 06/13/2021 4:12 PM CST Patient denies chest pain, and BLE edema. Patient reports SOB, dizziness, lightheadedness MEN PLANT OPERATOR documented in this encounter Procedure Notes * Melita Woods MD - 06/13/2021 4:39 PM CSTAssociated Order(s): EKG 12-LEAD Procedure(s): MA ECG ROUTINE ECG W/LEAST 12 LDS W/I&R Pre-Procedure Diagnose(s): New onset atrial fibrillation EKG: AF VR 103 bpm MEN PLANT OPERATOR documented in this encounter Plan of Treatment Upcoming Encounters Date Type Department Care Team (Late st Contact Info) Description 2024 11:00 AM BITUMEN PLANT OPERATOR Appointment [facility] S [address] [place] [address] 07/21/2024 9:45 AM BITUMEN PLANT OPERATOR Appointment [facility] Chemical Plant Operator [address] [place] [address] Kiel Vasquez MD [address] [facility] 2014 [place] [address] 07/21/2024 9:53 AM BITUMEN PLANT OPERATOR Hospital Encounter [facility] Chemical Plant Operator [address] [place] [address] Kiel Vasquez MD [address] [facility] 2014 [place] [address] Paroxysmal A-fib 07/21/2024 9:53 AM BITUMEN PLANT OPERATOR - 07/21/2024 11:46 AM BITUMEN PLANT OPERATOR Surgery [facility] Chemical Plant Operator [address] [place] [address] Kiel Vasquez MD [address] [facility] 2014 [place] [address] Left atrial appendage closure percutaneous 07/28/2024 8:30 AM BITUMEN PLANT OPERATOR Office Visit [facility] Oncology and Hematology - [place] [address] [place] [address] Nahid Hickman MD [address] [facility] [address] [place] [phone] 09/09/2024 1:00 PM CDT Office Visit [facility] Heart and Vascular At [address] [place] [address] Kiel Vasquez MD [facility] 2014 [place] [address] 12/16/2024 11:00 AM CDT Office Visit [facility] HEART AND VASCULAR EP AT [address] [place] [address] Demetrius Bowling DNP [address] [facility] 2014 [place] [address] 02/05/2025 10:45 AM CDT Telephone Check Up [facility] Heart and Vascular At [place] [address] [address] [facility] [address] [place] [address] 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 FNP [address] [place] [address] documented as of this encounter Procedures Procedure Name Priority Date/Time Associated Diagnosis Comments MA ECG ROUTINE ECG W/LEAST 12 LDS W/I&R Routine 06/13/2021 4:39 PM BITUMEN PLANT OPERATOR Persistent atrial fibrillation documented in this encounter Results * MA ECG ROUTINE ECG W/LEAST 12 LDS W/I&R (06/13/2021 4:39 PM BITUMEN PLANT OPERATOR) Narrative [facility] HEART AND VASCULAR - 06/13/2021 4:39 PM BITUMEN PLANT OPERATOR Melita Woods MD ? 06/13/2021 ??4:41 PM EKG: AF VR 103 bpm Procedure Note Melita Woods MD - 06/13/2021 4:39 PM CST EKG: AF VR 103 bpm Melita Woods MD ECG ORDERABLES [facility] HEART AND VASCULAR CLIA #[id number] [facility] S [facility] [address] [place] [address] documented in this encounter Visit Diagnoses Diagnosis Persistent atrial fibrillation- Primary Atrial fibrillation Benign hypertension Essential hypertension, benign Paroxysmal atrial fibrillation- Primary Atrial fibrillation Paroxysmal A-fib Atrial fibrillation Paroxysmal A-fib Atrial fibrillation documented in this encounter Care Teams Trial Examiner Relationship Specialty Start Date End Date Aliza Bain MD [address] [place] [address] PCP - General Family Practice 07/29/20 11/21/21 documented as of this encounter
--- OUTSIDE RECORDS SUMMARY | 2024-07-01 00:44 | XMS_ITS | Encounter Summary ---
Author Organization [facility] Address [address] [facility] Attn: Epic Prelude ADT STU [place] [address] Care Team Providers Care Technical Sourcing Recruiter Name Role Phone Aliza Bain MD Primary Care Provider Encounter Details Date Type Department Care Team (Latest Contact Info) Description 03/15/2021 Travel Social History Tobacco Use Types Packs/Day [...] Contact Info) Description 2024 11:00 AM COMMUNITY ARTS CENTRE MANAGER Appointment [facility] S [facility] Manjit [address] [place] [address] 07/21/2024 9:45 AM COMMUNITY ARTS CENTRE MANAGER Appointment [facility] Field Crop Harvest Worker [address] [place] [address] Kiel Vasquez MD [address] [facility] 2014 [place] [address] 07/21/2024 9:53 AM COMMUNITY ARTS CENTRE MANAGER Hospital Encounter [facility] Field Crop Harvest Worker [address] [place] [address] Kiel Vasquez MD [address] [facility] 2014 [place] [address] Jesse Lackey-fib 07/21/2024 9:53 AM COMMUNITY ARTS CENTRE MANAGER - 07/21/2024 11:46 AM COMMUNITY ARTS CENTRE MANAGER Surgery [facility] Field Crop Harvest Worker [address] [place] [address] Kiel Vasquez MD [address] [place] [address] 2014 [place] [address] Left atrial appendage closure percutaneous 07/28/2024 8:30 AM COMMUNITY ARTS CENTRE MANAGER Office Visit [facility] Oncology and Hematology - [place] [address] [facility] 200 [place] [address] Nahid Hickman MD [address] [facility] [address] [place] [address] 09/09/2024 1:00 PM CDT Office Visit [facility] Heart and Vascular At [address] [place] [address] Kiel Vasquez MD [address] [place] [address] 2014 [place] [address] 12/16/2024 11:00 AM CDT Office Visit [facility] HEART AND VASCULAR EP AT [address] [place] [address] Demetrius Bowling DNP [address] [place] [address] 2014 [place] [address] 02/05/2025 10:45 AM CDT Telephone Check Up [facility] Heart and Vascular At [address] [place] [address] 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 FNP [address] [place] [phone] documented as of this encounter Visit Diagnoses Not on filedocumented in this encounter Care Teams Technical Sourcing Recruiter Relationship Specialty Start Date End Date Aliza Bain MD [address] [place] [address] PCP - General Family Practice 07/29/20 11/21/21 documented as of this encounter
--- OUTSIDE RECORDS SUMMARY | 2024-07-01 00:44 | XMS_ITS | Encounter Summary ---
Author Organization [facility] [employer] [facility] Address [address] [place] [address] Care Team Providers Care Lead Javascript Engineer Name Role Phone Aliza Bain MD Primary Care Provider Encounter Details Date Type Department Care Team (Late st Contact Info) Description 06/14/2021 Orders Only [facility] Oncology and Hematology - [place] [address] [place] [address] Provider, Abstract NO ADDRESS ON [...] COVID-19? No / Unsure 06/16/2021 12:22 PM CATTLE SORTER documented as of this encounter Plan of Treatment Upcoming Encounters Date Type Department Care Team (Late st Contact Info) Description 2024 11:00 AM CATTLE SORTER Appointment [facility] [address] [place] [address] 07/21/2024 9:45 AM CATTLE SORTER Appointment [facility] Indigo Mixer [address] [place] [address] Kiel Vasquez MD [address] [place] [address] 07/21/2024 9:53 AM CATTLE SORTER Hospital Encounter [facility] Indigo Mixer [address] [place] [address] Kiel Vasquez MD [address] [place] [address] Paroxysmal A-fib 07/21/2024 9:53 AM CATTLE SORTER - 07/21/2024 11:46 AM CATTLE SORTER Surgery [facility] Indigo Mixer [address] [place] [phone] Kiel Vasquez MD [address] [place] [address] 2014 [place] [address] Left atrial appendage closure percutaneous 07/28/2024 8:30 AM CATTLE SORTER Office Visit [facility] Oncology and Hematology - [place] [address] [facility] 200 [place] [address] Nahid Hickman MD [address] [facility] [address] [place] [address] 09/09/2024 1:00 PM CDT Office Visit [facility] Heart and Vascular At [address] [place] [address] Kiel Vasquez MD [address] [place] [address] 2014 [place] [address] 12/16/2024 11:00 AM CDT Office Visit [facility] HEART AND VASCULAR EP AT [address] [place] [address] Demetrius Bowling DNP [address] [place] [address] 2014 [place] [address] 02/05/2025 10:45 AM CDT Telephone Check Up [facility] Heart and Vascular At [address] [place] [address] 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 FNP [facility] [place] [address] documented as of this encounter Procedures Procedure Name Priority Date/Time Associated Diagnosis Comments TSH REFLEXIVE Routine 06/13/2021 VITAMIN D 25 HYDROXY Routine 06/13/2021 COMPREHENSIVE METABOLIC PANEL Routine 06/13/2021 documented in this encounter Results * TSH REFLEXIVE (06/13/2021) Blood Abstract Provider CHEMISTRY ORDERABLES * VITAMIN D 25 HYDROXY (06/13/2021) Blood Abstract Provider CHEMISTRY ORDERABLES * COMPREHENSIVE METABOLIC PANEL (06/13/2021) Blood Abstract Provider CHEMISTRY ORDERABLES documented in this encounter Visit Diagnoses Not on filedocumented in this encounter Care Teams Lead Javascript Engineer Relationship Specialty Start Date End Date Aliza Bain MD [address] [place] [address] PCP - General Family Practice 07/29/20 11/21/21 documented as of this encounter
--- OUTSIDE RECORDS SUMMARY | 2024-07-01 00:44 | XMS_ITS | Encounter Summary ---
Author Organization [facility] Address [address] [facility] Attn: Epic Prelude ADT STU [place] [address] Care Team Providers Care Computer Applications Engineer Name Role Phone Aliza Bain MD Primary Care Provider Encounter Details Date Type Department Care Team (Latest Contact Info) Description 06/13/2021 Travel Social History Tobacco Use Types Packs/Day [...] COVID-19? No / Unsure 06/13/2021 3:54 PM TICKET DISPENSER CHANGER documented as of this encounter Plan of Treatment Upcoming Encounters Date Type Department Care Team (Late st Contact Info) Description 2024 11:00 AM TICKET DISPENSER CHANGER Appointment [facility] S [facility] Manjit [address] [place] [address] 07/21/2024 9:45 AM TICKET DISPENSER CHANGER Appointment [facility] Director Of Corporate Communications [address] [place] [address] Kiel Vasquez MD [address] [facility] [address] [place] [address] 07/21/2024 9:53 AM TICKET DISPENSER CHANGER Hospital Encounter [facility] Director Of Corporate Communications [address] [place] [address] Kiel Vasquez MD [address] [facility] 2014 [place] [address] Jesse Lackey-fib 07/21/2024 9:53 AM TICKET DISPENSER CHANGER - 07/21/2024 11:46 AM TICKET DISPENSER CHANGER Surgery [facility] Director Of Corporate Communications [address] [place] [address] Kiel Vasquez MD [address] [place] [address] 2014 [place] [address] Left atrial appendage closure percutaneous 07/28/2024 8:30 AM TICKET DISPENSER CHANGER Office Visit [facility] Oncology and Hematology - [place] [address] [facility] 200 [place] [address] Nahid Hickman MD [address] [facility] [address] [place] [address] 09/09/2024 1:00 PM CDT Office Visit [facility] Heart and Vascular At [address] [place] [address] Kiel Vasquez MD [address] [place] [address] 2014 [place] [address] 12/16/2024 11:00 AM CDT Office Visit [facility] HEART AND VASCULAR EP AT [address] [place] [address] Demetrius Bowling DNP [address] [place] [address] 2014 [place] [address] 02/05/2025 10:45 AM CDT Telephone Check Up [facility] Heart and Vascular At [address] [place] [address] 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 FNP [address] [place] [phone] documented as of this encounter Visit Diagnoses Not on filedocumented in this encounter Care Teams Computer Applications Engineer Relationship Specialty Start Date End Date Aliza Bain MD [address] [place] [address] PCP - General Family Practice 07/29/20 11/21/21 documented as of this encounter
--- OUTSIDE RECORDS SUMMARY | 2024-07-01 00:44 | XMS_ITS | Encounter Summary ---
Author Organization [facility] [employer] [facility] Address [address] [place] [address] Care Team Providers Care Tattooer Name Role Phone Aliza Bain MD Primary Care Provider Encounter Details Date Type Department Care Team (Late st Contact Info) Description 03/09/2021 Orders Only [facility] Oncology and Hematology - Brandon [address] [place] [phone] Lisset Dean MGUS (monoclonal gammopathy of unknown [...] st Contact Info) Description 2024 11:00 AM MED SPECIALIST Appointment [facility] [address] [place] [address] 07/21/2024 9:45 AM MED SPECIALIST Appointment [facility] Teacher'S Assistant [address] [place] [address] Kiel Vasquez MD 625 [address] [facility] 2014 [place] [address] 07/21/2024 9:53 AM MED SPECIALIST Hospital Encounter [facility] Teacher'S Assistant [address] [place] [address] Kiel Vasquez MD [address] [facility] 2014 [place] [address] Jesse Lackey-fib 07/21/2024 9:53 AM MED SPECIALIST - 07/21/2024 11:46 AM MED SPECIALIST Surgery [facility] Teacher'S Assistant [address] [place] [address] Kiel Vasquez MD [address] [place] [address] 2014 [place] [address] Left atrial appendage closure percutaneous 07/28/2024 8:30 AM MED SPECIALIST Office Visit [facility] Oncology and Hematology - Brandon 2227 [facility] 200 [place] [address] Nahid Hickman MD 2227 [facility] [address] [place] [address] 09/09/2024 1:00 PM CDT Office Visit [facility] Heart and Vascular At [address] 2014 [place] [address] Kiel Vasquez MD [address] [place] [address] 2014 [place] [address] 12/16/2024 11:00 AM CDT Office Visit [facility] HEART AND VASCULAR EP AT [address] [place] [address] Demetrius Bowling DNP [address] [place] [address] 2014 [place] [address] 02/05/2025 10:45 AM CDT Telephone Check Up [facility] Heart and Vascular At [address] 2014 [place] [address] 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 FNP [address] [place] [address] documented as of this encounter Visit Diagnoses Diagnosis MGUS (monoclonal gammopathy of unknown significance) Monoclonal paraproteinemia Paroxysmal atrial fibrillation- Primary Atrial fibrillation Paroxysmal A-fib Atrial fibrillation Paroxysmal A-fib Atrial fibrillation documented in this encounter Care Teams Tattooer Relationship Specialty Start Date End Date Aliza Bain MD [address] [place] [address] PCP - General Family Practice 07/29/20 11/21/21 documented as of this encounter
--- OUTSIDE RECORDS SUMMARY | 2024-07-01 00:45 | XMS_ITS | Encounter Summary ---
Author Organization [facility] Address [address] [place] [address] Care Team Providers Care Residence Supervisor Name Role Phone Aliza Bain MD Primary Care Provider Reason for Visit * Reason Onset Date Comments Information 09/08/2020 Encounter Details Date Type Department Care Team (Late st Contact Info) Description 09/08/2020 Telephone [facility] Cardiovas and Thor Surg at [facility] Heart [address] [place] [address] Jo Barrett, [place] NO ADDRESS ON FILE Information Social History Tobacco Use Types Packs/Day [...] have Coronavirus / COVID-19? No / Unsure 08/31/2020 5:10 AM CDT documented as of this encounter Miscellaneous Notes * Telephone Encounter - Jo Barrett ANP - 09/08/2020 4:32 PM CDT Leslie GRIFFITHS at [facility] called to report she opened case of pt. Checked BP 6 times today and it fluctuated. Pt had appt with PCP today and BP was WNL. They will continue to monitor and report back with any additional issues. documented in this encounter Plan of Treatment Upcoming Encounters Date Type Department Care Team (Late st Contact Info) Description 2024 11:00 AM WIREWORKER Appointment [facility] [address] [place] [address] 07/21/2024 9:45 AM WIREWORKER Appointment [facility] Food Checker [address] [place] [address] Kiel Vasquez MD 625 [address] [facility] 2014 [place] [address] 07/21/2024 9:53 AM WIREWORKER Hospital Encounter [facility] Food Checker [address] [place] [address] Kiel Vasquez MD 625 S [facility] [address] 2014 [place] [address] Paroxysmal A-fib 07/21/2024 9:53 AM WIREWORKER - 07/21/2024 11:46 AM WIREWORKER Surgery [facility] Food Checker [address] [place] [address] Kiel Vasquez MD 625 [address] [facility] 2014 [place] [address] Left atrial appendage closure percutaneous 07/28/2024 8:30 AM WIREWORKER Office Visit [facility] Oncology and Hematology - [place] [address] [place] [phone] Nahid Hickman MD [address] [address] 09/09/2024 1:00 PM CDT Office Visit [facility] Heart and Vascular At [address] [place] [address] Kiel Vasquez MD 625 [address] [facility] 2014 [place] [address] 12/16/2024 11:00 AM CDT Office Visit [facility] HEART AND VASCULAR EP AT [address] [place] [phone] Demetrius Bowling, TRUONG [address] 2014 [place] [address] 02/05/2025 10:45 AM CDT Telephone Check Up [facility] Heart and Vascular At [facility] [address] [facility] [address] [place] [address] 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, UNARMED SECURITY GUARD [address] [place] [address] documented as of this encounter Visit Diagnoses Not on filedocumented in this encounter Care Teams Residence Supervisor Relationship Specialty Start Date End Date Aliza Bain MD [address] [place] [address] PCP - General Family Practice 07/29/20 11/21/21 documented as of this encounter
--- OUTSIDE RECORDS SUMMARY | 2024-07-01 00:45 | XMS_ITS | Encounter Summary ---
Author Organization [facility] Address 6[address] [facility] Attn: Epic Prelude ADT STU [place] [address] Care Team Providers Care Senior Database Programmer Name Role Phone Aliza Bain MD Primary Care Provider Encounter Details Date Type Department Care Team (Latest Contact Info) Description 08/18/2020 Travel Social History Tobacco Use Types Packs/Day [...] have Coronavirus / COVID-19? No / Unsure 08/18/2020 12:05 PM MATERIAL CONTROL SPECIALIST documented as of this encounter Plan of Treatment Upcoming Encounters Date Type Department Care Team (Late st Contact Info) Description 2024 11:00 AM MATERIAL CONTROL SPECIALIST Appointment [facility] Manjit [address] [place] [address] 07/21/2024 9:45 AM MATERIAL CONTROL SPECIALIST Appointment [facility] Grain Trader [address] [place] [address] Kiel Vasquez MD [address] [facility] [address] [place] [address] 07/21/2024 9:53 AM MATERIAL CONTROL SPECIALIST Hospital Encounter [facility] Grain Trader [address] [place] [address] Kiel Vasquez MD [address] [place] [address] Jesse Lackey-shirley 07/21/2024 9:53 AM MATERIAL CONTROL SPECIALIST - 07/21/2024 11:46 AM MATERIAL CONTROL SPECIALIST Surgery [facility] Grain Trader [address] [place] [address] Kiel Vasquez MD [address] [place] [address] 2014 [place] [address] Left atrial appendage closure percutaneous 07/28/2024 8:30 AM MATERIAL CONTROL SPECIALIST Office Visit [facility] Oncology and Hematology - Brandon 2227 [facility] 200 [place] [address] Nahid Hickman MD 2227 [facility] [address] [place] [address] 09/09/2024 1:00 PM CDT Office Visit [facility] Heart and Vascular At [address] 2014 [place] [address] Kiel Vasquez MD [address] [place] [address] 2014 [place] [address] 12/16/2024 11:00 AM CDT Office Visit [facility] HEART AND VASCULAR EP AT [address] [place] [address] Demetrius Bowling DNP [address] [place] [address] 2014 [place] [address] 02/05/2025 10:45 AM CDT Telephone Check Up [facility] Heart and Vascular At [address] 2014 [place] [address] 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 FNP [address] [place] [phone] documented as of this encounter Visit Diagnoses Not on filedocumented in this encounter Care Teams Senior Database Programmer Relationship Specialty Start Date End Date Aliza Bain MD [address] [place] [address] PCP - General Family Practice 07/29/20 11/21/21 documented as of this encounter
--- OUTSIDE RECORDS SUMMARY | 2024-07-01 00:45 | XMS_ITS | Encounter Summary ---
Author Organization [facility] Address [address] [place] [address] Care Team Providers Care Physiatrist Name Role Phone Aliza Bain MD Primary Care Provider Reason for Visit * Auth/Cert Specialty Diagnoses / Procedures Referred By Contac t Referred To Contact Radiology [facility] S[facility] [place] A [address] [place] [address] Referral ID Status Reason Start Date Expiration Date Visits Re quested Visits Authorized [id number] 1 1 Encounter Details Date Type Department Care Team (Latest Contact Info) Description 09/27/2020 2:28 PM CDT - 09/27/2020 11:59 PM CDT Hospital Encounter [facility] Imaging Services Medical [place] A [address] [place] [address] Edinson Ferrell MD [address] [facility] [address] [place] [address] Discharge Disposition: Home or Self [...] have Coronavirus / COVID-19? No / Unsure 09/27/2020 2:24 PM CDT documented as of this encounter Medications [...] 40 MG tab1 tab by mouth daily metoprolol tartrate (LOPRESSOR) 25 mg tablet Take 1 Tablet (25 mg) by mouth 2 times daily. 60 Tablet 09/06/2020 10/06/2020 apixaban (ELIQUIS) 5 mg tablet Take 1 Tablet (5 mg) by mouth 2 times daily. 60 Tablet 1 09/06/2020 10/04/2020 glucosamine sulfate 500 mg Capsule Take 500 mg by mouth. 10/2022 hydroCHLOROthiazide 25 mg tablet TAKE 1 TABLET BY MOUTH EVERY DAY 05/07/2020 10/30/2023 documented as of this encounter Plan of Treatment Upcoming Encounters Date Type Department Care Team (Late st Contact Info) Description 2024 11:00 AM EARTH SCIENCE PROFESSOR Appointment [facility] S [facility] [address] [place] [address] 07/21/2024 9:45 AM EARTH SCIENCE PROFESSOR Appointment [facility] Front End Developer Javascript Html Css [address] [place] [address] Kiel Vasquez MD 625 [address] [facility] 2014 [place] [address] 07/21/2024 9:53 AM EARTH SCIENCE PROFESSOR Hospital Encounter [facility] Front End Developer [employer] [address] [place] [address] Kiel Vasquez MD [address] [facility] 2014 [place] [address] Jesse Robert 07/21/2024 9:53 AM EARTH SCIENCE PROFESSOR - 07/21/2024 11:46 AM EARTH SCIENCE PROFESSOR Surgery [facility] Front End Developer Javascript Html Css [address] [place] [address] Kiel Vasquez MD [address] [place] [address] [address] [place] [address] Left atrial appendage closure percutaneous 07/28/2024 8:30 AM EARTH SCIENCE PROFESSOR Office Visit [facility] Oncology and Hematology - [place] 7 [facility] 200 [place] [address] Nahid Hickman MD 2[address] [facility] [address] [place] [address] 09/09/2024 1:00 PM CDT Office Visit [facility] Heart and Vascular At [address] [place] [address] Kiel Vasquez MD [address] [place] [address] 2014 [place] [address] 12/16/2024 11:00 AM CDT Office Visit [facility] HEART AND VASCULAR EP AT [address] [place] [address] Demetrius Bowling DNP [address] [place] [address] 2014 [place] [address] 02/05/2025 10:45 AM CDT Telephone Check Up [facility] Heart and Vascular At [address] [place] [address] 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 FNP [address] [place] [address] documented as of this encounter Procedures Procedure Name Priority Date/Time Associated Diagnosis Comments XR CHEST PA AND LATERAL 2 VW Routine 09/27/2020 2:35 PM CDT S/P thoracotomy documented in this encounter Results * XR CHEST PA AND LATERAL 2 VW (09/27/2020 2:35 PM CDT) Anatomical Region Laterality Modality Chest Computed Radiogr aphy 09/27/2020 2:36 PM CDT Impressions 09/27/2020 3:34 PM CDT IMPRESSION: 1. Unchanged small right pleural effusion. DICTATION LOCATION: Location [address] [place] [address] Narrative 09/27/2020 3:34 PM CDT EXAMINATION: ??CHEST 2 VIEWS DATE: 09/27/2020 2:35 PM HISTORY: Thoracotomy. COMPARISON: ??09/06/2020 FINDINGS: Mild elevation of the right hemidiaphragm and small right pleural effusion are again seen, unchanged. No focal lung consolidation or pneumothorax is seen. Heart size is stable. Procedure Note Mateusz Morrison MD - 09/27/2020 EXAMINATION: CHEST 2 VIEWS DATE: 09/27/2020 2:35 PM HISTORY: Thoracotomy. COMPARISON: 09/06/2020 FINDINGS: Mild elevation of the right hemidiaphragm and small right pleural effusion are again seen, unchanged. No focal lung consolidation or pneumothorax is seen. Heart size is stable. IMPRESSION: 1. Unchanged small right pleural effusion. DICTATION LOCATION: Location - [facility] Edinson Ferrell MD DIAGNOSTIC IMAGING O RDERABLES documented in this encounter Visit Diagnoses Diagnosis S/P thoracotomy Other postprocedural status Paroxysmal atrial fibrillation- Primary Atrial fibrillation Paroxysmal A-fib Atrial fibrillation Paroxysmal A-fib Atrial fibrillation documented in this encounter Care Teams Physiatrist Relationship Specialty Start Date End Date Aliza Bain MD [address] [facility] [place] [address] PCP - General Family Practice 07/29/20 11/21/21 documented as of this encounter
--- OUTSIDE RECORDS SUMMARY | 2024-07-01 00:45 | XMS_ITS | Encounter Summary ---
Author Organization [facility] Address [address] [place] [address] Care Team Providers Care Veneer Trimmer Name Role Phone Aliza Bain MD Primary Care Provider Reason for Visit * Auth/Cert Specialty Diagnoses / Procedures Referred By Contac t Referred To Contact Diagnoses RIGHT LUNG CA Edinson Correa MD [address] [facility] [address] [place] [address] Referral ID Status Reason Start Date Expiration Date Visits Re quested Visits Authorized [id number] 08/18/2020 1 1 Encounter Details Date Type Department Care Team (Latest Contact Info) Description 08/31/2020 5:14 AM CDT - 09/06/2020 4:01 PM CDT Hospital Encounter [facility] [address] [place] [address] Edinson Correa MD [address] [facility] [address] [place] [address] Non-small cell cancer of right lung Discharge Disposition: Home Health Care Svc Social History Tobacco Use Types Packs/Day Years [...] Sign Reading Time Taken Comments Blood Pressure 138/64 09/06/2020 12:04 PM CDT Pulse 89 09/06/2020 12:04 PM CDT Temperature 36.3 ??C (97.3 ??F) 09/06/2020 12:04 PM C DT Respiratory Rate 29 09/06/2020 12:04 PM CDT Oxygen Saturation 96% 09/06/2020 12:04 PM CDT Inhaled Oxygen Concentration - - Weight 74 kg (163 lb 3.2 oz) 09/06/2020 12:00 AM CDT Height 161.3 cm (5' 3.5 ) 08/31/2020 6:28 AM CDT Body Mass Index 28.46 08/31/2020 6:28 AM CDT documented in this encounter Discharge Summaries * Nicole Rivero PA - 09/06/2020 9:58 AM CDT CTS Discharge Summary Zee Celis [id number] PRIMARY CARE PHYSICIAN: Aliza Bain MD Admission Date: 08/31/2020 Discharge Date: Primary Diagnosis: Active Hospital Problems Diagnosis ??? New onset atrial fibrillation ??? Non-small cell cancer of right lung Resolved Hospital Problems No resolved problems to display. Secondary Diagnosis: Past Medical History: Diagnosis Date ??? Arthritis ??? Dyspnea on exertion ??? GERD (gastroesophageal reflux disease) ??? HTN (hypertension) ??? Hx of degenerative disc disease ??? Injury of back DDD ??? Malignant neoplasm of lung Past Surgical History: Procedure Laterality Date ??? HX ANKLE SURGERY ??? HX COLONOSCOPY W/ POLYPECTOMY ??? HX HYSTERECTOMY ??? HX THORACOTOMY Right 08/31/2020 THORACOTOMY performed by Edinson Correa MD at [facility] OR ??? HX TONSILLECTOMY ??? HX TRIGGER FINGER REPAIR ??? DE RMVL LUNG OTHER THAN PNEUMONECTOMY 1 LOBE LOBECT Right 08/31/2020 LUNG LOBECTOMY performed by Edinson Correa MD at [facility] OR Procedures: Procedure(s) and Anesthesia Type: * THORACOTOMY - General * LUNG LOBECTOMY - General Detailed Operative Procedure: On 08/31, Dr. Correa performed Thoracotomy with lobectomy right upper lobe with lymphadenectomy Right Side Surgeon: Dr. Correa Consults: cardiology Vitals: Vitals: 09/06/20 0400 09/06/20 0551 09/06/20 0600 09/06/20 0845 BP: (!) 152/61 (!) 146/80 BP Location: Right arm Right arm Patient Position (BP): Supine Sitting Pulse: 83 (!) 106 85 95 Resp: 16 16 17 19 Temp: 98.4 ??F (36.9 ??C) 98.1 ??F (36.7 ??C) TempSrc: Oral Oral SpO2: 95% 97% 95% 96% Weight: Height: Weight: Weight: 74 kg (163 lb 3.2 oz) (09/06/20 0000) Allergies: Allergies Allergen Reactions ??? Penicillins Hives Laboratory: BMP: Recent Labs 09/04/20 0622 NA 133* K 4.3 CL 100 CO2 26 BUN 16 CREAT 0.72 GLUCOSE 113* MG 2.2 estimated creatinine clearance is 46.7 mL/min (by C-G formula based on SCr of 0.72 mg/dL). LFTs:No results for input(s): ALKPHOS, ALT, AST, BILITOTAL, ALBUMIN in the last 72 hours. CBC: No results for input(s): WBC, HGB, HCT, PLT, MCV in the last 72 hours. Coagulation: No results for input(s): PT, INR, APTT in the last 72 hours. Chest X-ray: Results for orders placed or performed during the hospital encounter of 08/31/20 XR CHEST PA AND LATERAL 2 VW Narrative XR CHEST PA AND LATERAL 2 VW DATE: 09/06/2020 4:58 AM HISTORY: ,Comment: Post-operative. Encounter for blood typing COMPARISON: 09/05/2020 FINDINGS: Right chest tube has been removed. There is a small right apical pneumothorax. Right lower lobe infiltrate and small effusion persist. Left lungs clear. The heart and mediastinal silhouette are unremarkable. INCIDENTAL FINDINGS: None. Impression IMPRESSION: Tiny residual right pneumothorax. Right lower lobe infiltrate and effusion. DICTATION LOCATION: [address] XR CHEST PA OR AP 1 VW Narrative CHEST SINGLE VIEW DATE: 09/04/2020 6:00 AM DICTATION LOCATION: Location - [facility] HISTORY: Postoperative evaluation. TECHNIQUE: Single portable view of the chest was obtained. Portable technique limits evaluation. COMPARISON: September 03, 2020. FINDINGS: There is a right-sided chest tube that appears unchanged in position. A small pneumothorax persists. Persistent subcutaneous emphysema within the chest wall. The overall aeration of the lungs is similar. Cardiac and mediastinal contours are unchanged. The visualized osseous structures demonstrate no acute abnormalities. The upper abdomen is unremarkable. Impression IMPRESSION: 1. Persistent right-sided pneumothorax that is unchanged. Discharge Medications: Medication List START taking these medications apixaban 5 mg tablet Commonly known as: ELIQUIS Take 1 Tablet (5 mg) by mouth 2 times daily. Signed by: Edinson Correa MD Quantity: 60 Tablet Refills: 1 gabapentin 100 mg capsule Commonly known as: NEURONTIN Take 1 Capsule (100 mg) by mouth 3 times daily. Signed by: Edinson Correa MD Quantity: 90 Capsule Refills: 0 HYDROcodone-acetaminophen 5-325 mg tablet Commonly known as: NORCO Take 1 Tablet by mouth every 4 hours as needed for Pain, Moderate. Max Daily Amount: 6 Tablets Signed by: Edinson Correa MD Quantity: 42 Tablet Refills: 0 metoprolol tartrate 25 mg tablet Commonly known as: LOPRESSOR Take 1 Tablet (25 mg) by mouth 2 times daily. Signed by: Edinson Correa MD Quantity: 60 Tablet Refills: 0 CONTINUE taking these medications aspirin 81 mg Tablet, Delayed Release (E.C.) Commonly known as: ECOTRIN EC Take 81 mg by mouth daily. Refills: 0 calcium-cholecalciferol 500 mg(1,250mg) -200 unit tablet Commonly known as: OS-SUSAN 500+D Take 1 Tablet by mouth daily. Refills: 0 cyanocobalamin 100 mcg tablet Commonly known as: VITAMIN B-12 Take 100 mcg by mouth daily. Refills: 0 glucosamine sulfate 500 mg Capsule Take 500 mg by mouth. Refills: 0 hydroCHLOROthiazide 25 mg tablet TAKE 1 TABLET BY MOUTH EVERY DAY Refills: 0 magnesium oxide 250 mg magnesium Tablet Take by mouth. Refills: 0 olmesartan 40 mg tablet Commonly known as: BENICAR Take 40 mg by mouth daily. Medication bottle is Olmesartan Medoxomil 40 MG tab1 tab by mouth daily Refills: 0 VITAMIN D3 ORAL Take by mouth. Refills: 0 Where to Get Your Medications [address] [facility] [address] Hours: Retail 8 AM - 12 AM Daily / ED Service 10 AM - 12 AM Daily ?? apixaban 5 mg tablet ?? gabapentin 100 mg capsule ?? metoprolol tartrate 25 mg tablet EKG: atrial fibrillation, rate 90. Brief History and Hospital Course: HPI: Zee Celis is an 75 y.o. 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 She has PMH of carotid artery stenosis (followed by vascular) and HTN. Ms Celis stated that shewas diagnosed with pneumonia in April and underwent CXR that identified a suspicious mass in the RUL. Chest CT was performed, confirming the RUL mass. Repeat CT was performed in July which prompted needle biopsy and PET scan. Needle biopsy confirmed that the RUL mass was NSCL. PET was done on 08/05/20 and showed the 3.5 cm RUL with FDG update. Ms Celis has had PFTs which are favorable for lung resection - demonstrating FEV1 of 1.6 and DLCO of 66%. Ms Celis comes in today for consultation ofright upper lobectomy. She denies CP, dizziness, unexplained weight loss, cough, hemoptysis, nausea or vomiting. She does experience fatigue and SOB. On 08/31, Dr. Correa performed performed right thor with RUL as described above. The operation was tolerated well by the patient. She was extubated in the operating room and transferred to the PACU in stable condition. After adequate recovery, she was transferred to the telemetry floor (with an epidural and lockwood in place). Ambulation was increased and oxygen was weaned as tolerated. On post op day two, patient went into afib - treated with amio bolus, drip and anterior chest tube was removed. Cardiology was consulted. Pt has remained in afib rate controlled. On eliquis. On post op day three,the epidural/lockwood was removed. On post op day five the posterior chest tube was removed. On post operative day six, the patient was educated and prepared for discharge to home. Nutritional status and in-house recommendations: Current Diet and/or Nutritional Supplementation ordered: DIET GENERAL Effective Day of Discharge Assessment and Plan: 1. POD #6- S/P Right Thoracotomy and Upper Lobe Resection 2. Cardiac: A. fib, BP: Stable 1. Cards following for afib. 2. Metoprolol 25 mg BID for rate control 3. Eliquis 5 mg BID 4. 2 week event monitor at discharge. 3. Pulm: Incentive spirometry, Good oxygenation on room air and ambulate CXR: small right apical pneumothorax 4. Renal: Baseline CR 0.83. CKD Stage 1. SCR 0.81 Today Normal renal function post-op 5. : voiding 6. Neuro: Alert and oriented 7. Heme: Pre-op H/H 10.5/33.9, POD 1 H/H 9.6/29.3 reflecting a 9% drop from baseline. Normal post-op blood count. H/H is Stable, Platelets stable. Plan: none 8. Prophylaxis: continue subcutaneous heparin and H2 [place]. Perform vaccine screen and administered required vaccines 9. Pain control: oral medications 10. Chest tubes and Drains: Previously removed 11. Prior to Admission Conditions and Treatment: ? HTN- home medications ? Carotid artery disease- followed by Vascular. ? Body mass index is 28.46 kg/m??.: Patient is Overweight with BMI 25-29.9 ? Former Tobacco Use: Cessation Education performed 12. Nutrition: Advance diet as tolerated Nutrition: Current Diet and/or Nutritional Supplementation ordered: DIET GENERAL Effective 13. Labs/Radiology: none 14. Disposition: Home today Pending Labs or Exams: none Disposition: The patient is being discharged to home in stable condition. She has a follow up appointment with Dr. Correa on 09/29 at 9:45am. and will need a CXR 15 minutes prior to the appointment. Written and verbal instructions were given and all questions were answered. documented in this encounter Discharge Instructions * Discharge Instructions* Jermain Carlisle RN - 08/31/2020 11:06 AM CDT Images from the original note were not included. [facility] [address] [facility] [id number] [place] [address] Dr. Yulia Correa Office # [phone](nurse line ext. [phone]) Please call the office from 8:30-4:30 M-F for questions/concerns. After hours, our office number is forwarded to the exchange. Or sign up for [employer] at [email or web address] to directly email our staff. PROCEDURE: Right Thoracotomy with right upper Lobectomy on 08/31/[address] Correa. DISCHARGE INSTRUCTIONS AND FOLLOW-UP APPOINTMENT ACTIVITY: Walk at least 20 minutes every day in 4-5 increments. Increase time as tolerated. Get up everyday and get dressed and eat your meals at a table. No heavy lifting > [address] or return to work until cleared by surgeon. DIET: Healthy (Low Cholesterol, Low Saturated Fat, Low Sodium) SPECIAL INSTRUCTIONS: (i.e. care of wounds, dressing, special appliance needs, etc) ?? Shower daily-24 hours after last chest tube was removed; then wash over incisions with soap and water. Do not use any ointments or creams on incisions. ?? Notify office of any redness around incision sites or any incisional drainage. ?? Notify physician for temperature over 101 F or any change in condition. ?? If present, remove your steri-strips within 7 days. ?? Chest tube sites may drain; place a band-aid or gauze dressing over the sites as needed ?? Avoid sitting for long periods of time, elevate your legs while sitting. ?? Take your pain medication as instructed. It is common to experience pain along the lower aspect of your ribcage toward the front of your chest/under your breast. ?? Constipation is common. It is recommended that you take a stool softener such as Colace. If constipation persists despite taking a stool softener, you may try Milk of Magnesia, Senna or a Dulcolaxsuppository. ?? Continue to use your Incentive Spirometer for your lungs. ?? If you are currently smoking we encourage you to stop. Speak with any of your physicians or their staff about the Smoking Cessation program that [facility] has to offer. Weaning off Gabapentin (Nerve pain medication) if you were prescribed this medication: When you're ready to wean off Gabapentin, start taking 100mg 2 times a day for 3 days, then 100mg once a day for3 days, then stop. FOLLOW UP: September 29 at 9:[address] Correa in the office. Please contact our officeif you would like a Video Visit. Please obtain a chest x-ray within 3 days of your appointment time @ any [facility] facility with Radiology. The chest x-ray has been ordered, and you do not need an appointment. Chronic conditions will be addressed by Aliza Bain MD. Please follow-up with Aliza Bain MD in the next 4 weeks. We encourage you to enroll in: at [email or web address]. It is a valuable tool to manage your healthcare needs. [email or web address] Expires: 10/27/2020 5:29 PM documented in this encounter Medications at Time [...] as of this encounter Progress Notes * Katya Simeon RN - 09/06/2020 10:13 AM CDT 09/06/20 1011 Discharge Planning Plan Discharge To Home with home health Discharge Plan Agreed Upon Patient Final Discharge Arrangements Services Arranged For Discharge [facility] Agency Name [facility] Service Agency Contact Name [facility] Agency [facility] arranged DC orders/Summary faxed. Declining WWR Katya Simeon RN/[facility] [phone] * Nicole Rivero PA - 09/06/2020 9:47 AM CDT CTS Floor Note POD #6 - S/P Right Thoracotomy and Upper Lobe Resection Subjective: ?? Doing very well sitting in the chair this morning no shortness of breath no chest pains. ?? Wounds healing well. ?? Pt has ambulated. Objective: Vitals: BP (!) 146/80 (BP Location: Right arm, Patient Position (BP): Sitting) Pulse 95 Temp 98.1 ??F (36.7 ??C) (Oral) Resp 19 Ht 5' 3.5 (1.613 m) Wt 74 kg (163 lb 3.2 oz) SpO2 96% BMI 28.46 kg/m?? Oxygen Therapy O2 Device: room air (09/06/20 0856) Oxygen Therapy Flow (L/min): 2 (09/02/202009) Weight: Weight: 74 kg (163 lb 3.2 oz) (09/06/20 0000) I & O: Intake/Output Summary (Last 24 hours) at 09/06/2020 0948 Last data filed at 09/06/2020 0400 Gross per 24 hour Intake -- Output 1050 ml Net -1050 ml EKG: Afib, rate in the 90's Physical Exam: Heart: afib, S1 and S2 normal Lungs: clear to auscultation bilaterally, normal respiratory effort Extremities: extremities normal, atraumatic, no cyanosis or edema, intact distal pulses, moves all extremities equally Abd: Soft, non-tender. Wounds: Chest wound: healing appropriately Neuro exam: alert, oriented x3 Data Review: BMP: Recent Labs 09/04/20 0622 NA 133* K 4.3 CL 100 CO2 26 BUN 16 CREAT 0.72 GLUCOSE 113* MG 2.2 estimated creatinine clearance is 46.7 mL/min (by C-G formula based on SCr of 0.72 mg/dL). CBC: No results for input(s): WBC, HGB, HCT, PLT, MCV in the last 72 hours. CXR: Results for orders placed or performed during the hospital encounter of 08/31/20 XR CHEST PA AND LATERAL 2 VW Narrative XR CHEST PA AND LATERAL 2 VW DATE: 09/06/2020 4:58 AM HISTORY: ,Comment: Post-operative. Encounter for blood typing COMPARISON: 09/05/2020 FINDINGS: Right chest tube has been removed. There is a small right apical pneumothorax. Right lower lobe infiltrate and small effusion persist. Left lungs clear. The heart and mediastinal silhouette are unremarkable. INCIDENTAL FINDINGS: None. Impression IMPRESSION: Tiny residual right pneumothorax. Right lower lobe infiltrate and effusion. DICTATION LOCATION: Location [address] [place] [address] XR CHEST PA OR AP 1 VW Narrative CHEST SINGLE VIEW DATE: 09/04/2020 6:00 AM DICTATION LOCATION: Location [address] [place] [address] HISTORY: Postoperative evaluation. TECHNIQUE: Single portable view of the chest was obtained. Portable technique limits evaluation. COMPARISON: September 03, 2020. FINDINGS: There is a right-sided chest tube that appears unchanged in position. A small pneumothorax persists. Persistent subcutaneous emphysema within the chest wall. The overall aeration of the lungs is similar. Cardiac and mediastinal contours are unchanged. The visualized osseous structures demonstrate no acute abnormalities. The upper abdomen is unremarkable. Impression IMPRESSION: 1. Persistent right-sided pneumothorax that is unchanged. Active Hospital Problems Diagnosis ??? New onset atrial fibrillation ??? Non-small cell cancer of right lung Resolved Hospital Problems No resolved problems to display. Assessment/Plan: 1. POD #6- S/P Right Thoracotomy and Upper Lobe Resection 2. Cardiac: A. fib, BP: Stable 1. Cards following for afib. 2. Metoprolol 25 mg BID for rate control 3. Eliquis 5 mg BID 4. 2 week event monitor at discharge. 3. Pulm: Incentive spirometry, Good oxygenation on room air and ambulate CXR: small right apical pneumothorax 4. Renal: Baseline CR 0.83. CKD Stage 1. SCR 0.81 Today Normal renal function post-op 5. : voiding 6. Neuro: Alert and oriented 7. Heme: Pre-op H/H 10.5/33.9, POD 1 H/H 9.6/29.3 reflecting a 9% drop from baseline. Normal post-op blood count. H/H is Stable, Platelets stable. Plan: none 8. Prophylaxis: continue subcutaneous heparin and H2 [place]. Perform vaccine screen and administered required vaccines 9. Pain control: oral medications 10. Chest tubes and Drains: Previously removed 11. Prior to Admission Conditions and Treatment: ?? HTN- home medications ?? Carotid artery disease- followed by Vascular. ?? Body mass index is 28.46 kg/m??.: Patient is Overweight with BMI 25-29.9 ?? Former Tobacco Use: Cessation Education performed 12. Nutrition: Advance diet as tolerated Nutrition: Current Diet and/or Nutritional Supplementation ordered: DIET GENERAL Effective 13. Labs/Radiology: none 14. Disposition: Home today * Trae Sow MD - 09/05/2020 9:12 AM CDT CTS Floor Note POD #5 - S/P Right Thoracotomy and Upper Lobe Resection Subjective: ?? Doing very well this morning no shortness of breath no chest pains. ?? Minimal fluctuations in chest tube no obvious air leak. ?? We will discontinue chest tube today. ?? Wounds healing well. ?? Questions answered. Objective: Vitals: BP (!) 159/71 Pulse (!) 113 Temp 98.8 ??F (37.1 ??C) (Oral) Resp 13 Ht 5' 3.5 (1.613 m) Wt 73.2 kg (161 lb 6.4 oz) SpO2 95% BMI 28.14 kg/m?? Oxygen Therapy O2 Device: room air (09/05/20532) Oxygen Therapy Flow (L/min): 2 (09/02/202009) Weight: Weight: 73.2 kg (161 lb 6.4 oz) (09/05/20532) I & O: Intake/Output Summary (Last 24 hours) at 09/05/2020 0912 Last data filed at 09/05/2020 0119 Gross per 24 hour Intake 600 ml Output 300 ml Net 300 ml EKG: Afib, rate in the 80's Chest Tubes water seal 1. Right: 250 ml/24 hours no air leak Physical Exam: Heart: afib, S1 and S2 normal Lungs: clear to auscultation bilaterally, normal respiratory effort Extremities: extremities normal, atraumatic, no cyanosis or edema, intact distal pulses, moves all extremities equally Abd: Soft, non-tender. Bowel sounds hypoactive, - flatus Wounds: Chest wound: healing appropriately Neuro exam: alert, oriented x3 Data Review: BMP: Recent Labs 09/03/20 0542 09/04/20 0622 NA 130* 133* K 4.4 4.3 CL 95* 100 CO2 26 26 BUN 17 16 CREAT 0.81 0.72 GLUCOSE 100* 113* MG 2.2 2.2 estimated creatinine clearance is 46.4 mL/min (by C-G formula based on SCr of 0.72 mg/dL). CBC: No results for input(s): WBC, HGB, HCT, PLT, MCV in the last 72 hours. CXR: Results for orders placed or performed during the hospital encounter of 08/31/20 XR CHEST PA AND LATERAL 2 VW Narrative XR CHEST PA AND LATERAL 2 VW DATE: 09/05/2020 5:21 AM DICTATION LOCATION: [address] HISTORY: Postoperative evaluation. TECHNIQUE: Two views of the chest were obtained. COMPARISON: September 04, 2020 FINDINGS: The right-sided chest tube has been retracted and the side port now projects over the soft tissues of the right chest wall. There is persistent subcutaneous emphysema within the right chest wall. There is a trace right-sided pneumothorax. There is also the suggestion of a right-sided pleural effusion. Mild interstitial prominence within the right lung. Left lung is well-expanded and clear. The visualized osseous structures demonstrate no acute abnormalities. The upper abdomen is unremarkable. Impression IMPRESSION: 1. Trace right-sided pneumothorax. 2. Suggestion of a right-sided pleural effusion. 3. Mild interstitial prominence within the right lung. XR CHEST PA OR AP 1 VW Narrative CHEST SINGLE VIEW DATE: 09/04/2020 6:00 AM DICTATION LOCATION: [address] HISTORY: Postoperative evaluation. TECHNIQUE: Single portable view of the chest was obtained. Portable technique limits evaluation. COMPARISON: September 03, 2020. FINDINGS: There is a right-sided chest tube that appears unchanged in position. A small pneumothorax persists. Persistent subcutaneous emphysema within the chest wall. The overall aeration of the lungs is similar. Cardiac and mediastinal contours are unchanged. The visualized osseous structures demonstrate no acute abnormalities. The upper abdomen is unremarkable. Impression IMPRESSION: 1. Persistent right-sided pneumothorax that is unchanged. Active Hospital Problems Diagnosis ??? New onset atrial fibrillation ??? Non-small cell cancer of right lung Resolved Hospital Problems No resolved problems to display. Assessment/Plan: 1. POD #3 - S/P Right Thoracotomy and Upper Lobe Resection 2. Cardiac: A. fib, BP: Stable 3. Pulm: Incentive spirometry, Good oxygenation on room air and ambulate CXR: With small right pneumothorax -interval new component to the basilar region 4. Renal: Baseline CR 0.83. CKD Stage 1. SCR 0.81 Today Normal renal function post-op 5. : Keep lockwood with epidural in place Plan for removal this afternoon 6. Neuro: Alert and oriented 7. Heme: Pre-op H/H 10.5/33.9, POD 1 H/H 9.6/29.3 reflecting a 9% drop from baseline. Normal post-op blood count. H/H is Stable, Platelets stable. Plan: none 8. Prophylaxis: continue subcutaneous heparin and H2 [place]. Perform vaccine screen and administered required vaccines 9. Pain control: Remove epidural today, transition to oral medications 10. Chest tubes and Drains: Continue chest tube to water seal 11. Prior to Admission Conditions and Treatment: ?? HTN- restart home medications ?? Carotid artery disease- followed by Vascular. ?? Body mass index is 28.14 kg/m??.: Patient is Overweight with BMI 25-29.9 ?? Former Tobacco Use: Cessation Education performed 12. Nutrition: Advance diet as tolerated Nutrition: Current Diet and/or Nutritional Supplementation ordered: DIET GENERAL Effective 13. Labs/Radiology: Check BMP and CXR in the am 14. Disposition: Home once chest tube removed and pain controlled on oral agents Plan: Continue posterior chest tube to water seal CXR and Labs in AM Remove epidural and lockwood today Consult to cardiology for continued atrial fibrillation after 2 amio bolus and gtt greater than 24 hours. Pulmonary toilet Mobilize Plan 09/04/20 ?? Alert active oriented x3, no major complaints doing very well ?? Chest tube still has occasional air leak, will keep on water seal ?? Pain under control ?? Wounds healing well ?? Sinus rhythm this morning ?? Hoping to be able to discontinue the tube tomorrow morning and discharge home. Plan 09/05/20 POD#5 ?? Doing very well this morning no shortness of breath no chest pains. ?? Minimal fluctuations in chest tube no obvious air leak. ?? We will discontinue chest tube today. ?? Wounds healing well. ?? Questions answered. * Chang Villanueva MD - 09/05/2020 8:59 AM CDT [facility] Heart and Vascular Cardiology Progress Note Subjective: Zee Celis is a 75 y.o. female with a history of GERD, HTN and recently diagnosed lung cancer-S/P right upper lobectomy on 08/31/2020. Cardiology has been consulted for postoperative atrial fibrillation. Pt went into A fib shortly after midnight 09/02. Was given amio bolus and gtt for 48 hours. Pt remains in A fib. On palpitations. She denies palpitations. Rate slightly high today but metoprolol hasn't been started yet and amio off now. Objective: Intake/Output Summary (Last 24 hours) at 09/05/2020 0904 Last data filed at 09/05/2020 0119 Gross per 24 hour Intake 600 ml Output 300 ml Net 300 ml Physical Exam: BP (!) 159/71 Pulse (!) 113 Temp 98.8 ??F (37.1 ??C) (Oral) Resp 13 Ht 5' 3.5 (1.613 m) Wt 73.2 kg (161 lb 6.4 oz) SpO2 95% BMI 28.14 kg/m?? General appearance: WD/WN. NAD Neck: No JVD. No Carotid bruits Lungs: CTA Bilaterally. No rales. No rhonchi. Heart: irregularly irregular Abdomen: Soft, NT Extremities: No edema or clubbing, normal ROM Pulses: 2+ and symmetric Data Review: CBC:No results for input(s): WBC, HGB, HCT, PLT, MCV in the last 72 hours. BMP: Recent Labs 09/03/20 0542 09/04/20 0622 NA 130* 133* K 4.4 4.3 CL 95* 100 CO2 26 26 ANIONGAP 9 7* CA 8.4* 8.4* GLUCOSE 100* 113* BUN 17 16 CREAT 0.81 0.72 Assessment: 1. Post operative Afib: rate controlled 70-80's with amiodarone gtt. Patient reports that she has been asymptomatic since going into afib. Does endorse SOB related to her lung CA and lightheadedness that has been occurring for some time. Started on IV amiodarone 09/02 with bolus x 2. [id number] score of 5 2. Lung cancer s/p right thoracotomy and upper lobectomy 3. HTN 4. PAD ?? Plan: ?? Now > 48 hours since onset of A fib so would need ANSELMO prior to cardioversion. I offered this but pt declined. A fib is asymptomatic. ?? Start metoprolol 25 mg BID for rate control. ?? CHADSVASC is 5. Continue Eliquis. ?? 2 week event monitor at discharge. ?? Will arrange outptatient cardiology follow up. As always, please do not hesitate to contact me at anytime with questions. Thank you. Neo Villanueva MD [facility] Heart and Vascular [place] Office: [phone] * Angelia Valera RN - 09/05/2020 7:41 AM CDT Shift Note: no acute events this shift Neuro: A&O4 CV: Afib. HR: 70-100s. SBP: 120-150s Resp: CT to water seal. Minimal output. RA clear breath sounds GI: +BS+BM this shift : Voiding adequately Pain/Delirium/Sleep: pain well controlled with pain regimen. Pt slept between care Activity: Appropriate level of activity up in room;chair. PT self positioned in bed throughout the night. Shift Undress and Assess performed by two coworkers: 1. TUNDE Galan 2. TUNDE Dorado The patient does not have existing skin breakdown, if yes, describe: The patient does not have new purple/zack/dark red over ANY bony prominences (ears, elbows, knees, heels, coccyx, hips, occiput), if yes, describe: ~If ANY answer 'yes'- please re-consult and call wound care~ Wound care consult was not in place. Wound care consult was not initiated. Are there currently any skin protectant dressings in place, if yes, where? no If yes, please describe condition of skin under dressing: If no, were any applied and where: no Are there any currently any medical devices in place (leg immobilizers, FMS, c- collars, splints, etc.)? no If yes, describe skin under device: Education: Patient has Riki Score of Riki Score: Riki Score: 19 (09/04/201917) . Patient educated on importance of q2 hour repositioning and use of positioning supports to prevent skin breakdown. Also educated patient on importance of CHG bathing during hospitalization as infection prevention measure. Educated patient on high fall risk precautions, use of assistive devices, and use of call light. Explained that patient has increased risk of fall during hospitalization due to telemetry/monitoring devices, new medications, and clinical status, and that patient should not attempt to get up without assistance from staff. Patient/family demonstrates understanding of stated education. * Dolly Ji RN - 09/04/2020 3:35 PM CDT Shift Note: Neuro: A&O x 4 CV: AFIB Resp: Room air. Chest tube continues to waterseal; minimal output. GI: +BS, no BM this shift. : Voiding adequately. Pain/Delirium/Sleep: Pain well controlled on current regimen. Activity: Pt spent most of day in chair. Ambulates with gait belt, walker and standby assist. ?? Shift Undress and Assess performed by two coworkers: 1. Dolly GRIFFITHS 2. Ainsley [employer]ENT ?? The patient does not have existing skin breakdown, if yes, describe: ? The patient does not have new purple/zack/dark red over ANY bony prominences (ears, elbows, knees, heels, coccyx, hips, occiput), if yes, describe: ? ~If ANY answer 'yes'- please re-consult and call wound care~ Wound care consult was not in place. Wound care consult was not initiated. ? Are there currently any skin protectant dressings in place, if yes, where? no If yes, please describe condition of skin under dressing: If no, were any applied and where: no ?? Are there any currently any medical devices in place (leg immobilizers, FMS, c- collars, splints, etc.)? no If yes, describe skin under device: ? Education: Patient has Riki Score of Riki Score: Riki Score: 20 (09/03/202006) . Patient educated on importance of q2 hour repositioning and use of positioning supports to prevent skin breakdown. Also educated patient on importance of CHG bathing during hospitalization as infection prevention measure. Educated patient on high fall risk precautions, use of assistive devices, and use of call light. Explained that patient has increased risk of fall during hospitalization due to telemetry/monitoring devices, new medications, and clinical status, and that patient should not attempt to get up without assistance from staff. Patient/family demonstrates understanding of stated education. * Chang Villanueva MD - 09/04/2020 11:29 AM CDT [facility] Heart and Vascular Cardiology Progress Note Subjective: Zee Celis is a 75 y.o. female with a history of GERD, HTN and recently diagnosed lung cancer-S/P right upper lobectomy on 08/31/2020. Cardiology has been consulted for postoperative atrial fibrillation. Pt went into A fib shortly after midnight 09/02. Was given amio bolus and gtt for 48 hours. Pt remains in A fib. Was started on Eliquis yesterday afternoon. She denies palpitations. Rate is controlled. Objective: Intake/Output Summary (Last 24 hours) at 09/04/2020 1129 Last data filed at 09/04/2020 0842 Gross per 24 hour Intake 1349.32 ml Output 475 ml Net 874.32 ml Physical Exam: BP (!) 142/67 (BP Location: Left arm, Patient Position (BP): Sitting) Pulse 83 Temp 97.7 ??F (36.5 ??C) (Oral) Resp 20 Ht 5' 3.5 (1.613 m) Wt 73.2 kg (161 lb 6.4 oz) SpO2 99% BMI 28.14kg/m?? General appearance: WD/WN. NAD Neck: No JVD. No Carotid bruits Lungs: CTA Bilaterally. No rales. No rhonchi. Heart: irregularly irregular Abdomen: Soft, NT Extremities: No edema or clubbing, normal ROM Pulses: 2+ and symmetric Data Review: CBC:No results for input(s): WBC, HGB, HCT, PLT, MCV in the last 72 hours. BMP: Recent Labs 09/02/20 0740 09/03/20 0542 09/04/20 0622 NA 132* 130* 133* K 3.7 4.4 4.3 CL 97* 95* 100 CO2 26 26 26 ANIONGAP 9 9 7* CA 8.3* 8.4* 8.4* GLUCOSE 99 100* 113* BUN 20 17 16 CREAT 0.99* 0.81 0.72 Assessment: 1. Post operative Afib: rate controlled 70-80's with amiodarone gtt. Patient reports that she has been asymptomatic since going into afib. Does endorse SOB related to her lung CA and lightheadedness that has been occurring for some time. Started on IV amiodarone 09/02 with bolus x 2. [id number] score of 5 2. Lung cancer s/p right thoracotomy and upper lobectomy 3. HTN 4. PAD ?? Plan: ?? Now > 48 hours since onset of A fib so would need ANSELMO prior to cardioversion. I offered this but pt declined. Stop amio. A fib is asymptomatic. ?? Start metoprolol 25 mg BID for rate control. ?? CHADSVASC is 5. Continue Eliquis. ?? 2 week event monitor at discharge. ?? Will arrange outptatient cardiology follow up. As always, please do not hesitate to contact me at anytime with questions. Thank you. Neo Villanueva MD [facility] Heart and Vascular [place] Office: [phone] * Trae Sow MD - 09/04/2020 9:29 AM CDT CTS Floor Note POD #4 - S/P Right Thoracotomy and Upper Lobe Resection Subjective: ?? Alert active oriented x3, no major complaints doing very well ?? Chest tube still has occasional air leak, will keep on water seal ?? Pain under control ?? Wounds healing well ?? Sinus rhythm this morning ?? Hoping to be able to discontinue the tube tomorrow morning and discharge home. Objective: Vitals: BP (!) 142/67 (BP Location: Left arm, Patient Position (BP): Sitting) Pulse 83 Temp 97.7 ??F (36.5 ??C) (Oral) Resp 20 Ht 5' 3.5 (1.613 m) Wt 73.2 kg (161 lb 6.4 oz) SpO2 99% BMI 28.14kg/m?? Oxygen Therapy O2 Device: room air (09/04/20 0842) Oxygen Therapy Flow (L/min): 2 (09/02/202009) Weight: Weight: 73.2 kg (161 lb 6.4 oz) (09/04/20 0101) I & O: Intake/Output Summary (Last 24 hours) at 09/04/2020 0929 Last data filed at 09/04/2020 0842 Gross per 24 hour Intake 1349.32 ml Output 475 ml Net 874.32 ml EKG: Afib, rate in the 80's Chest Tubes water seal 1. Right: 250 ml/24 hours no air leak Physical Exam: Heart: afib, S1 and S2 normal Lungs: clear to auscultation bilaterally, normal respiratory effort Extremities: extremities normal, atraumatic, no cyanosis or edema, intact distal pulses, moves all extremities equally Abd: Soft, non-tender. Bowel sounds hypoactive, - flatus Wounds: Chest wound: healing appropriately Neuro exam: alert, oriented x3 Data Review: BMP: Recent Labs 09/02/20 0740 09/03/20 0542 09/04/20 0622 NA 132* 130* 133* K 3.7 4.4 4.3 CL 97* 95* 100 CO2 26 26 26 BUN 20 17 16 CREAT 0.99* 0.81 0.72 GLUCOSE 99 100* 113* MG 2.1 2.2 2.2 estimated creatinine clearance is 46.4 mL/min (by C-G formula based on SCr of 0.72 mg/dL). CBC: No results for input(s): WBC, HGB, HCT, PLT, MCV in the last 72 hours. CXR: Results for orders placed or performed during the hospital encounter of 08/31/20 XR CHEST PA AND LATERAL 2 VW Narrative CHEST 2 VIEWS DATE: 09/03/2020 5:30 AM HISTORY: Post-Operative. . Encounter for blood typing. COMPARISON: 09/02/2020 FINDINGS: Interval removal of one of the thoracic drains. The residual drain projects over the lower right lung and appears retracted over the interval with the side port projecting outside the thoracic cavity. There is redemonstration of chest wall emphysema, with a new small amount along the lower right lateral chest wall. A small right pneumothorax is seen with subpulmonic component. The subpulmonic component appears new. No left pneumothorax is seen. Opacity at the right hilum with postoperative changes again noted. Bibasilar predominant opacities may be superimposed atelectasis and consolidation slightly increased on the right from previous. Probable small right effusion. No definite left effusion. No other acute interval change. Impression IMPRESSION: Interval removal of one of the right chest tubes, with the remaining chest tube retracted over the interval, side port projecting outside of the thoracic cavity. The small right pneumothorax is again seen a new subpulmonic component. Discussed with the patient's nurse Luciana at the time of interpretation. Bibasilar predominant opacities may be superimposed atelectasis and consolidation slightly increased on the right from previous. DICTATION LOCATION: Location [address] [place] [address] XR CHEST PA OR AP 1 VW Narrative CHEST SINGLE VIEW DATE: 09/04/2020 6:00 AM DICTATION LOCATION: Location [address] [place] [address] HISTORY: Postoperative evaluation. TECHNIQUE: Single portable view of the chest was obtained. Portable technique limits evaluation. COMPARISON: September 03, 2020. FINDINGS: There is a right-sided chest tube that appears unchanged in position. A small pneumothorax persists. Persistent subcutaneous emphysema within the chest wall. The overall aeration of the lungs is similar. Cardiac and mediastinal contours are unchanged. The visualized osseous structures demonstrate no acute abnormalities. The upper abdomen is unremarkable. Impression IMPRESSION: 1. Persistent right-sided pneumothorax that is unchanged. Active Hospital Problems Diagnosis ??? New onset atrial fibrillation ??? Non-small cell cancer of right lung Resolved Hospital Problems No resolved problems to display. Assessment/Plan: 1. POD #3 - S/P Right Thoracotomy and Upper Lobe Resection 2. Cardiac: A. fib, BP: Stable 3. Pulm: Incentive spirometry, Good oxygenation on room air and ambulate CXR: With small right pneumothorax -interval new component to the basilar region 4. Renal: Baseline CR 0.83. CKD Stage 1. SCR 0.81 Today Normal renal function post-op 5. : Keep lockwood with epidural in place Plan for removal this afternoon 6. Neuro: Alert and oriented 7. Heme: Pre-op H/H 10.5/33.9, POD 1 H/H 9.6/29.3 reflecting a 9% drop from baseline. Normal post-op blood count. H/H is Stable, Platelets stable. Plan: none 8. Prophylaxis: continue subcutaneous heparin and H2 [place]. Perform vaccine screen and administered required vaccines 9. Pain control: Remove epidural today, transition to oral medications 10. Chest tubes and Drains: Continue chest tube to water seal 11. Prior to Admission Conditions and Treatment: ?? HTN- restart home medications ?? Carotid artery disease- followed by Vascular. ?? Body mass index is 28.14 kg/m??.: Patient is Overweight with BMI 25-29.9 ?? Former Tobacco Use: Cessation Education performed 12. Nutrition: Advance diet as tolerated Nutrition: Current Diet and/or Nutritional Supplementation ordered: DIET GENERAL Effective 13. Labs/Radiology: Check BMP and CXR in the am 14. Disposition: Home once chest tube removed and pain controlled on oral agents Plan: Continue posterior chest tube to water seal CXR and Labs in AM Remove epidural and lockwood today Consult to cardiology for continued atrial fibrillation after 2 amio bolus and gtt greater than 24 hours. Pulmonary toilet Mobilize Plan 09/04/20 ?? Alert active oriented x3, no major complaints doing very well ?? Chest tube still has occasional air leak, will keep on water seal ?? Pain under control ?? Wounds healing well ?? Sinus rhythm this morning ?? Hoping to be able to discontinue the tube tomorrow morning and discharge home. * Angelia Valera RN - 09/04/2020 7:22 AM CDT Shift Note: no acute events this shift Neuro: A&Ox4 CV: Afib. HR: 70-90s. SBP: 120-130s. Amio stopped at 0050 Resp: CT to water seal minimal output. RA GI: +BS-BM this shift : Voiding adequately Pain/Delirium/Sleep: pain well controlled with prn pain regimen. Pt slept between care Activity: pt self turned in bed. Pt upxSBA Shift Undress and Assess performed by two coworkers: 1. TUNDE Galan 2. TUNDE Dorado The patient does not have existing skin breakdown, if yes, describe: n/a The patient does not have new purple/zack/dark red over ANY bony prominences (ears, elbows, knees, heels, coccyx, hips, occiput), if yes, describe: n/a ~If ANY answer 'yes'- please re-consult and call wound care~ Wound care consult was not in place. Wound care consult was not initiated. Are there currently any skin protectant dressings in place, if yes, where? no If yes, please describe condition of skin under dressing: n/a If no, were any applied and where: no Are there any currently any medical devices in place (leg immobilizers, FMS, c- collars, splints, etc.)? no If yes, describe skin under device: n/a Education: Patient has Riki Score of Riki Score: Riki Score: 19 (09/03/202006) . Patient educated on importance of q2 hour repositioning and use of positioning supports to prevent skin breakdown. Also educated patient on importance of CHG bathing during hospitalization as infection prevention measure. Educated patient on high fall risk precautions, use of assistive devices, and use of call light. Explained that patient has increased risk of fall during hospitalization due to telemetry/monitoring devices, new medications, and clinical status, and that patient should not attempt to get up without assistance from staff. Patient/family demonstrates understanding of stated education. * Ashanti Wahl NP - 09/03/2020 8:47 AM CDT CTS Floor Note POD #3 - S/P Right Thoracotomy and Upper Lobe Resection Subjective: ?? In bed, no acute distress ?? No supplemental oxygen required ?? Pain controlled with epidural- plan for removal today ?? Right chest tube to water seal, serosanguinous output, no air leak. ?? CXR this AM with small ptx with new subpulmonic portion, terminal hole outside thoracic cavity. ?? IS 1000 today ?? A fib persists- amio gtt x 2 and bolus for over 24 hours. ?? Electrolytes stable ?? Consult to Dr. Heart of Cardiology. ?? Repeat AM labs. Objective: Vitals: BP 114/53 (BP Location: Right arm, Patient Position (BP): Supine) Pulse 87 Temp 97.9 ??F (36.6 ??C) (Oral) Resp 16 Ht 5' 3.5 (1.613 m) Wt 71.7 kg (158 lb 1.6 oz) SpO2 94% BMI 27.57 kg/m?? Oxygen Therapy O2 Device: room air (09/03/20 0800) Oxygen Therapy Flow (L/min): 2 (09/02/202009) Weight: Weight: 71.7 kg (158 lb 1.6 oz) (09/03/20 0344) I & O: Intake/Output Summary (Last 24 hours) at 09/03/2020 0848 Last data filed at 09/03/2020 0800 Gross per 24 hour Intake 1267.74 ml Output 1420 ml Net -152.26 ml EKG: Afib, rate in the 80's Chest Tubes water seal 1. Right: 250 ml/24 hours no air leak Physical Exam: Heart: afib, S1 and S2 normal Lungs: clear to auscultation bilaterally, normal respiratory effort Extremities: extremities normal, atraumatic, no cyanosis or edema, intact distal pulses, moves all extremities equally Abd: Soft, non-tender. Bowel sounds hypoactive, - flatus Wounds: Chest wound: healing appropriately Neuro exam: alert, oriented x3 Data Review: BMP: Recent Labs 09/01/20 0557 09/02/20 0740 09/03/20 0542 NA 133* 132* 130* K 3.9 3.7 4.4 CL 98 97* 95* CO2 26 26 26 BUN 25* 20 17 CREAT 1.06* 0.99* 0.81 GLUCOSE 103* 99 100* MG -- 2.1 2.2 estimated creatinine clearance is 45.9 mL/min (by C-G formula based on SCr of 0.81 mg/dL). CBC: Recent Labs 09/01/20 0557 WBC 13.0* HGB 9.6* HCT 29.3* PLT 166 MCV 93.6 CXR: Results for orders placed or performed during the hospital encounter of 08/31/20 XR CHEST PA AND LATERAL 2 VW Narrative CHEST 2 VIEWS DATE: 09/03/2020 5:30 AM HISTORY: Post-Operative. . Encounter for blood typing. COMPARISON: 09/02/2020 FINDINGS: Interval removal of one of the thoracic drains. The residual drain projects over the lower right lung and appears retracted over the interval with the side port projecting outside the thoracic cavity. There is redemonstration of chest wall emphysema, with a new small amount along the lower right lateral chest wall. A small right pneumothorax is seen with subpulmonic component. The subpulmonic component appears new. No left pneumothorax is seen. Opacity at the right hilum with postoperative changes again noted. Bibasilar predominant opacities may be superimposed atelectasis and consolidation slightly increased on the right from previous. Probable small right effusion. No definite left effusion. No other acute interval change. Impression IMPRESSION: Interval removal of one of the right chest tubes, with the remaining chest tube retracted over the interval, side port projecting outside of the thoracic cavity. The small right pneumothorax is again seen a new subpulmonic component. Discussed with the patient's nurse Luciana at the time of interpretation. Bibasilar predominant opacities may be superimposed atelectasis and consolidation slightly increased on the right from previous. DICTATION LOCATION: [facility] 1 - [facility] XR CHEST PA OR AP 1 VW Narrative CHEST SINGLE VIEW DATE: 09/02/2020 5:35 AM HISTORY: Post-Operative. 75-year-old female; postop COMPARISON: 09/01/2020 FINDINGS: Heart size is stable. The pulmonary vasculature is within normal limits. There is fullness of the right hilum with postsurgical changes. Left basilar subsegmental atelectasis/infiltrate is unchanged. There are two right chest tubes. Small right apical pneumothorax is unchanged. Subcutaneous emphysema is stable. Small right pleural effusion with associated compressive atelectasis or infiltrate. Impression IMPRESSION: 1. Stable appearance of the chest since 09/01/2020 with small right apical pneumothorax and right-sided pleural effusion with associated compressive atelectasis/infiltrate. 2. Fullness of the right hilum grossly stable. DICTATION LOCATION: Location 1 - [facility] Active Hospital Problems Diagnosis ??? Non-small cell cancer of right lung Resolved Hospital Problems No resolved problems to display. Assessment/Plan: 1. POD #3 - S/P Right Thoracotomy and Upper Lobe Resection 2. Cardiac: A. fib, BP: Stable 3. Pulm: Incentive spirometry, Good oxygenation on room air and ambulate CXR: With small right pneumothorax -interval new component to the basilar region 4. Renal: Baseline CR 0.83. CKD Stage 1. SCR 0.81 Today Normal renal function post-op 5. : Keep lockwood with epidural in place Plan for removal this afternoon 6. Neuro: Alert and oriented 7. Heme: Pre-op H/H 10.5/33.9, POD 1 H/H 9.6/29.3 reflecting a 9% drop from baseline. Normal post-op blood count. H/H is Stable, Platelets stable. Plan: none 8. Prophylaxis: continue subcutaneous heparin and H2 [place]. Perform vaccine screen and administered required vaccines 9. Pain control: Remove epidural today, transition to oral medications 10. Chest tubes and Drains: Continue chest tube to water seal 11. Prior to Admission Conditions and Treatment: ?? HTN- restart home medications ?? Carotid artery disease- followed by Vascular. ?? Body mass index is 27.57 kg/m??.: Patient is Overweight with BMI 25-29.9 ?? Former Tobacco Use: Cessation Education performed 12. Nutrition: Advance diet as tolerated Nutrition: Current Diet and/or Nutritional Supplementation ordered: DIET GENERAL Effective 13. Labs/Radiology: Check BMP and CXR in the am 14. Disposition: Home once chest tube removed and pain controlled on oral agents Plan: Continue posterior chest tube to water seal CXR and Labs in AM Remove epidural and lockwood today Consult to cardiology for continued atrial fibrillation after 2 amio bolus and gtt greater than 24 hours. Pulmonary toilet Mobilize * Ashanti Wahl NP - 09/02/2020 9:44 AM CDT CTS Floor Note POD #2 - S/P Right Thoracotomy and Upper Lobe Resection Subjective: ?? In bed, no acute distress ?? 2L supplemental oxygen via nasal cannula, wean as tolerated ?? Pain controlled with epidural ?? Right chest tube x 2 to water seal, serosanguinous output, no air leak. ?? Anterior chest tube removed this AM. ?? CXR this AM with small stable ptx on the right ?? IS 750 today ?? A fib overnight- amio bolus and drip. Rebolus this morning ?? Replace Potassium with 40 meq IV and 20 PO ?? Mag 2.1- no replacement. ?? Repeat AM labs. Objective: Vitals: BP 110/47 (BP Location: Right arm, Patient Position (BP): Sitting) Pulse 77 Temp 99.3 ??F (37.4??C) (Axillary) Resp 19 Ht 5' 3.5 (1.613 m) Wt 70 kg (154 lb 4.8 oz) SpO2 96% BMI 26.90 kg/m?? Oxygen Therapy O2 Device: nasal cannula (09/02/20 0800) Oxygen Therapy Flow (L/min): 2 (09/02/20 0800) Weight: Weight: 70 kg (154 lb 4.8 oz) (09/02/20 0525) I & O: Intake/Output Summary (Last 24 hours) at 09/02/2020 0945 Last data filed at 09/02/2020 0600 Gross per 24 hour Intake 251.04 ml Output 1460 ml Net -1208.96 ml EKG: normal sinus rhythm Chest Tubes water seal 1. Right: 270 ml/24 hours no air leak Physical Exam: Heart: normal rate and regular rhythm, S1 and S2 normal Lungs: clear to auscultation bilaterally, normal respiratory effort Extremities: extremities normal, atraumatic, no cyanosis or edema, intact distal pulses, moves all extremities equally Abd: Soft, non-tender. Bowel sounds hypoactive, - flatus Wounds: Chest wound: healing appropriately Neuro exam: alert, oriented x3 Data Review: BMP: Recent Labs 09/01/20 0557 NA 133* K 3.9 CL 98 CO2 26 BUN 25* CREAT 1.06* GLUCOSE 103* estimated creatinine clearance is 42.9 mL/min (A) (by C-G formula based on SCr of 1.06 mg/dL (H)). CBC: Recent Labs 09/01/20 0557 WBC 13.0* HGB 9.6* HCT 29.3* PLT 166 MCV 93.6 CXR: Results for orders placed or performed during the hospital encounter of 08/31/20 XR CHEST PA OR AP 1 VW Narrative CHEST SINGLE VIEW DATE: 09/02/2020 5:35 AM HISTORY: Post-Operative. 75-year-old female; postop COMPARISON: 09/01/2020 FINDINGS: Heart size is stable. The pulmonary vasculature is within normal limits. There is fullness of the right hilum with postsurgical changes. Left basilar subsegmental atelectasis/infiltrate is unchanged. There are two right chest tubes. Small right apical pneumothorax is unchanged. Subcutaneous emphysema is stable. Small right pleural effusion with associated compressive atelectasis or infiltrate. Impression IMPRESSION: 1. Stable appearance of the chest since 09/01/2020 with small right apical pneumothorax and right-sided pleural effusion with associated compressive atelectasis/infiltrate. 2. Fullness of the right hilum grossly stable. DICTATION LOCATION: Location 1 [facility] Results for orders placed or performed during the hospital encounter of 08/18/20 XR CHEST PA AND LATERAL 2 VW Narrative PA AND LATERAL CHEST, 2 VIEWS Exam date: 08/18/2020 4:04 PM INDICATION: Non-small cell cancer of right lung COMPARISON: PET CT 08/05/2020 seven facility FINDINGS: Likely corresponding to known malignancy is a masslike opacity in the right upper lobe. No pleural effusion or pneumothorax. The lungs are otherwise clear without infiltrate. Heart size and mediastinal contours are within normal limits. No acute osseous abnormality. Impression IMPRESSION: No acute chest finding. Masslike opacity in the right upper lobe likely corresponds with known malignancy DICTATION LOCATION: Location 9 - [facility] Problems Diagnosis ??? Non-small cell cancer of right lung Resolved Hospital Problems No resolved problems to display. Assessment/Plan: 1. POD #2 - S/P Right Thoracotomy and Upper Lobe Resection 2. Cardiac: Sinus rhythm, BP: Stable 3. Pulm: Incentive spirometry, Good oxygenation on room air and ambulate CXR: With small right pneumothorax which is stable from previous CXR 4. Renal: Baseline CR 0.83. CKD Stage 1. SCR 0.99 Today Normal renal function post-op 5. : Keep lockwood with epidural in place 6. Neuro: Alert and oriented 7. Heme: Pre-op H/H 10.5/33.9, POD 1 H/H 9.6/29.3 reflecting a 9% drop from baseline. Normal post-op blood count. H/H is Stable, Platelets stable. Plan: Trending labs with repeat CBC tomorrow 8. Prophylaxis: continue subcutaneous heparin and H2 [place]. Perform vaccine screen and administered required vaccines 9. Pain control: Continue epidural until tomorrow 10. Chest tubes and Drains: Continue chest tube to water seal 11. Prior to Admission Conditions and Treatment: ?? HTN- restart home medications ?? Carotid artery disease- followed by Vascular. ?? Body mass index is 26.9 kg/m??.: Patient is Overweight with BMI 25-29.9 ?? Former Tobacco Use: Cessation Education performed 12. Nutrition: Advance diet as tolerated Nutrition: Current Diet and/or Nutritional Supplementation ordered: DIET GENERAL Effective 13. Labs/Radiology: Check BMP and CXR in the am 14. Disposition: Home once chest tube removed and pain controlled on oral agents Plan: Removed anterior chest tube Continue posterior chest tube to water seal CXR and Labs in AM Continue epidural and lockwood until tomorrow Re-bolus of amiodarone to try to convert back to NSR Pulmonary toilet Mobilize * Tiffanie Guy RN - 09/01/2020 4:29 PM CDT Shift Note: No Acute event this shift., Epidural infusing at 4 mL/hr, CT to water seal as per order. Neuro: A&O x4 CV: NSR Resp: RA GI: +BS, no BM : adequate output lockwood, Pain/Delirium/Sleep: NCO pain Activity: Appropriate level of activity up in room; in chair; q2 repositioning this shift. Shift Undress and Assess performed by two coworkers: 1. TUNDE Moreno 2. SHIRIN De Luna The patient does not have existing skin breakdown, if yes, describe: The patient does not have new purple/zack/dark red over ANY bony prominences (ears, elbows, knees, heels, coccyx, hips, occiput), if yes, describe: ~If ANY answer 'yes'- please re-consult and call wound care~ Wound care consult was not in place. Wound care consult was not initiated. Are there currently any skin protectant dressings in place, if yes, where? If yes, please describe condition of skin under dressing: If no, were any applied and where: Are there any currently any medical devices in place (leg immobilizers, FMS, c- collars, splints, etc.)? If yes, describe skin under device: Education: Patient has Riki Score of 17. Patient educated on importance of q2 hour repositioning and use of positioning supports to prevent skin breakdown. Also educated patient on importance of CHG bathing during hospitalization as infection prevention measure. Educated patient on high fall riskprecautions, use of assistive devices, and use of call light. Explained that patient has increased risk of fall during hospitalization due to telemetry/monitoring devices, new medications, and clinical status, and that patient should not attempt to get up without assistance from staff. Patient/family demonstrates understanding of stated education. * Esthela Feng ANP - 09/01/2020 1:06 PM CDT Home Health Certification for [place] of Care Patient: Zee Celis : 1945 Physician Documentation of the Face to Face Encounter (1) I certify that I, a nurse practitioner or physician???s assistant project manager working with me, had a Face to Face Encounter with this patient on: 09/01/2020 (2) The encounter with the patient was in whole, or in part, for the following medical condition/s,which is the primary reason for home health care: has Non-small cell cancer of right lung on their problem list. (3) I certify that, based on my findings, the following services for Zee Celis are medically necessary home health services [facility]: my CLINICAL FINDINGS support the need because the patientpresents with a new diagnosis or surgical procedure requiring teaching/training, new medication/s with the need for administration oversight and/or teaching and new wound/s requiring teaching and training regarding care and dressing changes, PHYSICAL THERAPY: my CLINICAL FINDINGS support the need because the patient presents with a high risk for or history of falls needing a safety assessment anddecreased range of motion limiting functional abilities and OCCUPATIONAL THERAPY: my CLINICAL FINIDINGS support the need because the patient presents with decreased upper extremity strength/ROM limiting function and need for energy conservation instruction (4) Further, I certify that my clinical findings support that Zee Celis is HOMEBOUND because the presence of a condition that makes leaving the home medically contraindicated Zee Celis is 75 y.o. female presenting with normal inability to leave the home. Leaving the home requires a considerable and taxing effort due to decreased range of motion limiting ability to perform ADLs and poor endurance requiring an assistive device or assistance of another person * Ashanti Wahl NP - 09/01/2020 8:21 AM CDT CTS Floor Note POD #1 - S/P Right Thoracotomy and Upper Lobe Resection Subjective: ?? In bed, no acute distress ?? No supplemental oxygen required ?? Pain controlled with epidural at 4ml/hr, rates 2/10 when lying and 5/10 with movement ?? Right chest tube x 2 to suction, serosanguinous output, no air leak. ?? CXR this AM with small stable ptx on the right, some subcutaneous air ?? Minimal crepitus noted around chest tube sites. ?? Lockwood intact and draining. ?? IS 750 today Objective: Vitals: BP 106/58 (BP Location: Right arm, Patient Position (BP): Supine) Pulse 76 Temp 98.2 ??F (36.8 ??C) (Oral) Resp 16 Ht 5' 3.5 (1.613 m) Wt 66.7 kg (147 lb 2 oz) SpO2 96% BMI 25.65 kg/m?? Oxygen Therapy O2 Device: room air (09/01/20722) Oxygen Therapy Flow (L/min): 1 (08/31/202043) Weight: Weight: (PACU not zeroed) (09/01/20 0436) I & O: Intake/Output Summary (Last 24 hours) at 09/01/2020 0821 Last data filed at 09/01/2020 0700 Gross per 24 hour Intake 465.9 ml Output 995 ml Net -529.1 ml EKG: normal sinus rhythm Chest Tubes suction 1. Right: 440 ml/24 hours no air leak Physical Exam: Heart: normal rate and regular rhythm, S1 and S2 normal Lungs: clear to auscultation bilaterally, normal respiratory effort Extremities: extremities normal, atraumatic, no cyanosis or edema, intact distal pulses, moves all extremities equally Abd: Soft, non-tender. Bowel sounds hypoactive, - flatus Wounds: Chest wound: healing appropriately Neuro exam: alert, oriented x3 Data Review: BMP: Recent Labs 09/01/20 0557 NA 133* K 3.9 CL 98 CO2 26 BUN 25* CREAT 1.06* GLUCOSE 103* estimated creatinine clearance is 41.9 mL/min (A) (by C-G formula based on SCr of 1.06 mg/dL (H)). CBC: Recent Labs 09/01/20 0557 WBC 13.0* HGB 9.6* HCT 29.3* PLT 166 MCV 93.6 CXR: Results for orders placed or performed during the hospital encounter of 08/31/20 XR CHEST PA OR AP 1 VW Narrative CHEST, FRONTAL VIEW DATE: 09/01/2020 5:30 AM HISTORY: Post-Operative COMPARISON: Chest x-ray on 08/31/2020 Impression FINDINGS AND IMPRESSION: Right-sided chest tubes ending in the upper chest and medial right base as before. Small right apical pneumothorax appears unchanged. Small right subcutaneous emphysema. There is interval decreased bilateral lung expansion. Interval increased subsegmental left basilar atelectasis/infiltrate. Cardiomediastinal silhouette size is stable. Postoperative changes in the right hilum. DICTATION LOCATION: [address] Results for orders placed or performed during the hospital encounter of 08/18/20 XR CHEST PA AND LATERAL 2 VW Narrative PA AND LATERAL CHEST, 2 VIEWS Exam date: 08/18/2020 4:04 PM INDICATION: Non-small cell cancer of right lung COMPARISON: PET CT 08/05/2020 seven facility FINDINGS: Likely corresponding to known malignancy is a masslike opacity in the right upper lobe. No pleural effusion or pneumothorax. The lungs are otherwise clear without infiltrate. Heart size and mediastinal contours are within normal limits. No acute osseous abnormality. Impression IMPRESSION: No acute chest finding. Masslike opacity in the right upper lobe likely corresponds with known malignancy DICTATION LOCATION: Location - [facility] Hospital Problems Diagnosis ??? Non-small cell cancer of right lung Resolved Hospital Problems No resolved problems to display. Assessment/Plan: 1. POD #1 - S/P Right Thoracotomy and Upper Lobe Resection 2. Cardiac: Sinus rhythm, BP: Stable 3. Pulm: Incentive spirometry, Good oxygenation on room air and ambulate CXR: With small right pneumothorax which is stable from post op CXR 4. Renal: Baseline CR 0.83. CKD Stage 1. Scr today is 1.06 Normal renal function post-op 5. : Keep lockwood with epidural in place 6. Neuro: Alert and oriented 7. Heme: Pre-op H/H 10.5/33.9, Today's H/H 9.6/29.3 reflecting a 9% drop from baseline. Acute bloodloss anemia. H/H is Stable, Platelets stable. Plan: Trending labs with repeat CBC tomorrow 8. Prophylaxis: Start subcutaneous heparin and H2 [place]. Perform vaccine screen and administered required vaccines 9. Pain control: Continue epidural 10. Chest tubes and Drains: Continue chest tube on suction 11. Prior to Admission Conditions and Treatment: ?? HTN- monitor and start DATABASE MANAGER meds as needed ?? Carotid artery disease- followed by Vascular. ?? Body mass index is 25.65 kg/m??.: Patient is Overweight with BMI 25-29.9 ?? Former Tobacco Use: Cessation Education performed 12. Nutrition: Advance diet as tolerated Nutrition: Current Diet and/or Nutritional Supplementation ordered: DIET GENERAL Effective 13. Labs/Radiology: Check BMP and CXR in the am 14. Disposition: Home once chest tube removed and pain controlled on oral agents * Jonathan Guzman RN - 09/01/2020 12:13 AM CDT Shift Note: no acute events this shift Neuro: a&ox4, afebrile CV: HR 70s-80s NSR, Resp: sating 90s on RA, clear/diminshed lung sounds . chx tube output charted in flow sheets, remained to -20 suction GI: +BS, -BM : adeqaute UO per lockwood Pain/Delirium/Sleep: pain managed with current regimen. Epidural going at 4ml/hr Activity: Appropriate level of activity q2 repositioning. Shift Undress and Assess performed by two coworkers: 1. Jonathan GRIFFITHS 2. Felicia CAREY The patient does not have existing skin breakdown, if yes, describe: The patient does not have new purple/zack/dark red over ANY bony prominences (ears, elbows, knees, heels, coccyx, hips, occiput), if yes, describe: ~If ANY answer 'yes'- please re-consult and call wound care~ Wound care consult was not in place. Wound care consult was not initiated. Are there currently any skin protectant dressings in place, if yes, where? If yes, please describe condition of skin under dressing: If no, were any applied and where: Are there any currently any medical devices in place (leg immobilizers, FMS, c- collars, splints, etc.)? If yes, describe skin under device: Education: Patient has Riki Score of see flow chart. Patient educated on importance of q2 hour repositioning and use of positioning supports to prevent skin breakdown. Also educated patient on importance of CHG bathing during hospitalization as infection prevention measure. Educated patient on high fall risk precautions, use of assistive devices, and use of call light. Explained that patient has increased risk of fall during hospitalization due to telemetry/monitoring devices, new medications, and clinical status, and that patient should not attempt to get up without assistance from staff. P atient/family demonstrates understanding of stated education. * Tiffanie Guy RN - 08/31/2020 3:28 PM CDT ?UNDRESS AND ASSESS FOR ALL ADMISSIONS AND TRANSFERS: Remove all existing dressings and assess all wounds upon admission (unless instructed by physician). Undress and Assess performed by: bedside coworker TUNDE Moreno and bedside coworker SHIRIN De Luna on admission to [facility] 0776 Riki Score: Riki Score: 23 (08/31/20 1133) 1. Patient does not have skin breakdown. ??? If yes o Description of wound location and appearance: o LDA added for any open areas and for non-blanching pink/red or purple areas? No (please note, heels, ankles, knees, hips, sacrum, coccyx, ischium, gluteal, occiput, spine and all skin folds are high risk for skin breakdown) and consult wound care services 2. Was wound photographed: No 3. Is a specialty support surface utilized? No If yes, which one?: No i.e. impaired mobility, bariatric, malnourished, existing pressure injury. 4. Is the patient a paraplegic/quadriplegic? No If so, if stable spine immediately place on specialty surface. If unstable spine or new spinal injury, consult physician (per facility process) and consult wound care services. 5. Is a medical appliance maker in place?no If yes, remove device/brace/splint to check skin underneath, obtain provider order if necessary. 6. Does the patient have a wound VAC (negative pressure wound therapy)? No If yes, please consult wound care services and follow facility process. 7. Does the patient have an ostomy? No If yes, please consult wound care services. 8. Was the Skin Care Prevention: Pressure Injury Pathway initiated and appropriate interventions selected? (i.e. protective foams, turn patient q 2 h, elevate heels etc.) No 9. Was the Skin Care Treatment: Pressure Injury/Lower Extremity Ulcer Pathway initiated, and appropriate interventions selected? No(i.e. cleanse and apply silicone border dressing to skin tears, cleanse and apply antifungal to affected skin folds and apply soft linen or Interdry between folds etc.). Wound care consult was not initiated. [facility] Skin Care Injury Prevention and Treatment Protocol [facility] Approved by: [facility] - Medical Executive Committee Approval Date: 07/03/2019 ORDERS ARE ENTERED ???PER PROTOCOL?? Nursing Orders: o When a patient age 18 years or older has: ; a documented Riki score of 18 or less or a Riki sub score of 2 or 1, ; or a documented condition on the problem list of: diabetes, malnutrition or cachectic, paralysis,spinal cord disorder/injuries or muscle/neurological disease, THEN, the RN will order the Skin Care/Pressure Injury Prevention Pathway and initiate all appropriate interventions as per the Riki Risk Assessment Algorithm. o When a patient age 18 years or older has a wound requiring treatment, the RN and Wound Care Nurses may order the Skin Care/Pressure Ulcer/Lower Extremity Ulcer Treatment Pathway and use appropriatetreatments found in the Nursing Algorithm. o The Wound Care Nurse may also order treatments found in the Wound Care Algorithm. * Tiffanie Guy RN - 08/31/2020 2:03 PM CDT Zee Celis is a 75 y.o. female admitted to room 4075 via stretcher/bed from PACU . Pain or associated symptoms at time of arrival: Pain level of 7, Epidural infusing at 4 mL/hr. Portable monitor connected to bedside, cardiac rhythm Sinus rhythm. Reviewed Admission orders and understanding verbalized by son . Personal Items clothing, eye glasses, personal electronics and wallet/purse , with patient at bedside . Items left at bedside: clothing, eye glasses, personal electronics and wallet/purse. Family encouraged to take home as many personal belongings as possible. patient oriented to room. Siderails up X 3, bed in low position with wheels locked, call light within reach, bed alarm on while patient is in bed. Will continue to monitor patient, and provide support as needed. documented in this encounter H&P Notes * Arash Watson PA - 08/31/2020 5:53 AM CDT CTS Preop Note I have reviewed the last H&P and examined the patient today and there are no changes. Objective: Vitals: BP (!) 157/73 Pulse 63 Ht 5' 3 (1.6 m) Wt 68 kg (150 lb) SpO2 97% BMI 26.57 kg/m?? Weight Weight: 68 kg (150 lb) (08/18/20 1535) I & O: No intake or output data in the 24 hours ending 08/31/20 0558 EKG: normal EKG, normal sinus rhythm, unchanged from previous tracings Physical Exam: Heart: normal rate, regular rhythm, [...] normal in context and clarity Data Review: BMP:No results for input(s): NA, K, CL, CO2, BUN, CREAT, GLUCOSE, MG in the last 72 hours. CrCl cannot be calculated (Patient's most recent lab result is older than the maximum 7 days allowed.). LFTs:No results for input(s): ALKPHOS, ALT, AST, BILITOTAL, ALBUMIN in the last 72 hours. CBC: No results for input(s): WBC, HGB, HCT, PLT, MCV in the last 72 hours. Coagulation: No results for input(s): PT, INR, APTT in the last 72 hours. ABGs: No results for input(s): PH, PCO2, PO2, HCO3, BASEEXCESS, SO2 in the last 72 hours. Assessment/Plan 1. Ms Celis presents for right thoracotomy with upper lobectomy by Dr. Correa 2. All question answered 3. Labs reviewed 4. documented in this encounter Procedure Notes * Fred Venegas MD - 09/22/2020 5:21 PM CDTAssociated Order(s): HOLTER MONITOR [place], [place] [address] Print Color Operator Report CSN: [id number] DATE OF SERVICE: 09/06/2020 FAX A COPY TO: DR. SARBJIT BROOKS EVENT MONITOR ORDERING PHYSICIAN Dr. Sarbjit Brooks. TEST INDICATION Paroxysmal atrial fibrillation. INTERPRETATION 1. The patient was monitored from 09/06 through 09/19/2020. 2. Baseline transmission demonstrates atrial fibrillation, heart rate 90. 3. There were no symptomatic transmissions sent. 4. There are 14 autotriggered transmissions demonstrating atrial fibrillation, heart rates ranging from 74 to 110 beats per minute, mostly in the 80s to 90s range. 5. There was 1 brief strip of sinus rhythm on 09/07/2020 time 20:20, which again demonstrates sinusrhythm with PACs. All the other strips are atrial fibrillation. 6. There are no long pauses. MANUEL:MEDQ DID: [id number] Dictated by: Fred Venegas MD, [facility] documented in this encounter Consult Notes * Karen Heart MD - 09/03/2020 10:13 AM CDTAssociated Order(s): IP CONSULT TO CARDIOLOGY Images from the original note were not included. [facility] Cardiology Consult Louise Marie RN, MSN, 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-C Cardiology consult, requested by Dr. Wahl This consult is for advice and opinion regarding AF Primary Care Physician: Aliza Bain MD Primary Ear Machine Operator: None on file History of Present Illness: Zee Celis is a 75 y.o. female with history of HTN, Lung CA, Carotid artery stenosis, GERD, and former smoker.Presented on 08/31 for a scheduled right thoracotomy with upper lobectomy by Dr. Correa. On 09/02 around 0000, pt noted to be in afib. Started on Amiodarone IV bolus followed by gtt. Continues to be in Afib rate controlled in the 70-80's. Currently on subcutaneous heparin for DVT prophylaxis, but otherwise holding anticoagulation. Pt sitting in chair this morning, reports that she is asymptomatic. Denies chest pain/pressure, dizziness, syncope, palpitations, nausea, vomiting, orthopnea, PND, recent weight gain, recent URI and edema. + SOB, but states it is due to her lung cancer, does endorse some lightheadedness, but says this has been occurring for some time. Cardiac risk factors: age, post-menopausal female, former smoker, 1st degree relative with CAD, CAD, HTN Allergies Allergen Reactions ??? Penicillins Hives Past Medical History: Diagnosis Date ??? Arthritis ??? Dyspnea on exertion ??? GERD (gastroesophageal reflux disease) ??? HTN (hypertension) ??? Hx of degenerative disc disease ??? Injury of back DDD ??? Malignant neoplasm of lung Past Surgical History: Procedure Laterality Date ??? HX ANKLE SURGERY ??? HX COLONOSCOPY W/ POLYPECTOMY ??? HX HYSTERECTOMY ??? HX THORACOTOMY Right 08/31/2020 THORACOTOMY performed by Edinson Correa MD at [facility] OR ??? HX TONSILLECTOMY ??? HX TRIGGER FINGER REPAIR ??? DE RMVL LUNG OTHER THAN PNEUMONECTOMY 1 LOBE LOBECT Right 08/31/2020 LUNG LOBECTOMY performed by Edinson Correa MD at [facility] OR Family History Problem [...] Expenses: Not hard at all Food Insecurity: ??? Worried About Running Out of Food in the Last Year: ??? Ran Out of Food in the Last Year: Transportation Needs: No Transportation Needs ??? Lack [...] and Family: Not on file ??? Attends Congregation Services: Not on file ??? Active Member of Clubs or Organizations: Yes ??? Attends Club or Organization Meetings: Never ??? Marital Status: Not on file Intimate Partner Violence: Not At Risk ??? Fear of Current or Ex-Partner: No ??? Emotionally Abused: No ??? Physically Abused: No ??? Sexually Abused: No No current facility-administered medications on file prior to encounter. Current Outpatient Medications on File Prior to Encounter Medication Sig Dispense Refill ??? cyanocobalamin (VITAMIN B-12) 100 mcg tablet [...] 40 MG tab1 tab by mouth daily Review of Systems: General: No fever, chills, fatigue, weight gain or loss HEENT: No headaches, loss of consciousness or vision changes Respiratory:See HPI Cardiac: See HPI GI: No nausea, vomiting, diarrhea, constipation, abdominal pain, history of GI bleeding, melena orhematochezia : No dysuria or hematuria Musculoskeletal: No back pain, neck pain, joint pain or swelling Vascular: No claudication Neurological: No CVA or TIA symptoms All other ROS reviewed and are negative Physical Exam: BP 114/53 (BP Location: Right arm, Patient Position (BP): Supine) Pulse 87 Temp 97.9 ??F (36.6 ??C) (Oral) Resp 16 Ht 5' 3.5 (1.613 m) Wt 71.7 kg (158 lb 1.6 oz) SpO2 94% BMI 27.57 kg/m?? General: Well developed, well nourished in no acute distress, sitting in chair this morning HEENT: Normocephalic Neck: no JVD, , no adenopathy or mass noted Lungs: Respirations unlabored, diminished to auscultation Heart: Irregular heart rhythm, S1, S2, no S3 or S4, no murmurs, gallops or rubs Abd: Soft, non-tender, non-distended. Normoactive bowel sounds. Extremities: No cyanosis, clubbing or edema. Peripheral pulses are 2+ and symmetric Neurologic: Awake, alert and oriented. Non focal. Psych: Mood appropriate. DATABASE: Results for orders placed or performed during the hospital encounter of 08/31/20 (from the past 24 hour(s)) BASIC METABOLIC PANEL Result Value Ref Range SODIUM 130 (L) 136 - 145 mmol/L POTASSIUM 4.4 3.5 - 5.0 mmol/L CHLORIDE 95 (L) 98 - 107 mmol/L CO2 26 22 - 29 mmol/L CALCIUM 8.4 (L) 8.6 - 10.2 mg/dL BUN 17 8 - 23 mg/dL CREATININE 0.81 0.51 - 0.95 mg/dL GLUCOSE 100 (H) 74 - 99 mg/dL GFR >60 mL/min/1.73 sq meter GFR, >60 mL/min/1.73 sq meter ANION GAP 9 8 - 16 mmol/L MAGNESIUM LEVEL Result Value Ref Range MAGNESIUM 2.2 1.6 - 2.4 mg/dL Chest XRay: 09/03/2020 IMPRESSION: Interval removal of one of the right chest tubes, with the remaining chest tube retracted over the interval, side port projecting outside of the thoracic cavity. The small right pneumothorax is again seen a new subpulmonic component. Discussed with the patient's nurse Luciana at the time of interpretation. ?? Bibasilar predominant opacities may be superimposed atelectasis and consolidation slightly increased on the right from previous. [id number] EK09/02/2020 ASSESSMENT: 1. Post operative Afib: rate controlled 70-80's with amiodarone gtt. Patient reports that she has been asymptomatic since going into afib. Does endorse SOB related to her lung CA and lightheadedness that has been occurring for some time. Started on IV amiodarone 09/02 with bolus x 2. [id number] score of 5 2. Lung cancer s/p right thoracotomy and upper lobectomy 3. HTN 4. PAD PLAN: 1. Continue amiodarone for total of ~48 hours, if still hasn't chemically converted then would switch to rate control strategy with metoprolol. 2. Once safe from post operative standpoint recommend Eliquis 5mg po bid for CVA prophylaxis 3. Upon discharge recommend 2 week secured entrance monitor 4. Will arrange follow up with medical appliance maker The patient was seen and examined by Dr.Robert Sorto. Thank you for this consultation. We will behappy to follow the patient with you. Louise Marie, MSN, 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-C Nurse Practitioner [facility] Secure chat Mon-Sun 8am-4:30 or call on cell phone After 4:30pm or on weekends [phone] ADDENDUM: Patient seen and examined and chart, including all relevant data, was reviewed by me. Physical Exam: BP 112/48 (BP Location: Right arm, Patient Position (BP): Sitting) Pulse 99 Temp97.5 ??F (36.4 ??C) (Oral) Resp 20 Ht 5' 3.5 (1.613 m) Wt 71.7 kg (158 lb 1.6 oz) SpO2 95% BMI 27.57 kg/m?? General appearance: alert, in no distress Neck: no carotid bruit and no JVD Lungs: clear to auscultation bilaterally, normal respiratory effort Heart: irregularly irregular rhythm with rate, variable S1, normal S2, no audible murmurs Abdomen: Soft, non-tender. Bowel sounds normal. Extremities: intact distal pulses, no edema Skin: Warm and dry. No rashes. Case discussed with the nurse practitioner. I agree with the plan as outlined above. The patient juliana 75-year-old woman with a history of GERD, HTN and recently diagnosed lung cancer-S/P right upper lobectomy on 08/31/2020. Cardiology has been consulted for postoperative atrial fibrillation. The patient has done well postop until early this morning when she was noted to go into atrial fibrillationwith moderate ventricular rates. IV amiodarone was initiated. The rhythm has persisted and cardiology has been consulted. Agree with ongoing management with IV amiodarone. Unfortunately the patient is not a candidate for anticoagulation at this time due to her perioperative status. Continue amiodaro ne for another 24 hours. If the patient fails to chemically convert, recommend discontinuing amiodarone and converting to a rate control strategy with oral metoprolol. The patient has a CHADS-Vasc2 score of 5 suggesting that she would benefit from therapeutic anticoagulation once it is safe to do so from a postoperative standpoint. At the time of discharge, the patient will carry an event monitorfor 2 weeks and follow-up with one of my colleagues to review these results. Karen Heart MD, [facility] Inpatient Cardiology Service [facility] documented in this encounter OR Notes * OR Anesthesia - Celeste Maldonado MD - 09/03/2020 10:36 AM CDT 09/03/2020 10:36 AM Regional Anesthesia Service Name: Zee Celis Age: 75 y.o. Sex: female CSN: [id number] Chief complaint: Post operative pain POD # 3 Epidural Infusing at 4 cc/hr Pain scale at rest: 1/10 Pain scale with movement/cough: 6/10 Sedation: no Pruritis: no Nausea/vomiting: no Urinary retention: lockwood catheter in place BP 114/53 (BP Location: Right arm, Patient Position (BP): Supine) Pulse 87 Temp 36.6 ??C (Oral) Resp 16 Ht 5' 3.5 (1.613 m) Wt 71.7 kg (158 lb 1.6 oz) SpO2 94% BMI 27.57 kg/m?? Alert: yes Motor block: no Sensory block: yes; good pain control Epidural site C/D/I: yes LABS Lab Results Component Value Date/Time WBC 13.0 (H) 09/01/2020 05:57 AM HEMOGLOBIN 9.6 (L) 09/01/2020 05:57 AM POC HEMOGLOBIN 10.2 (L) 08/31/2020 07:31 AM HEMATOCRIT 29.3 (L) 09/01/2020 05:57 AM POC HEMATOCRIT 31 (L) 08/31/2020 07:31 AM PLATELETS 166 09/01/2020 05:57 AM Lab Results Component Value Date/Time INR 1.0 08/18/2020 03:06 PM PROTIME 13.8 08/18/2020 03:06 PM Epidural catheter removed, with tip intact. Epidural orders discontinued. The following pain medications were ordered: roxicodone Future pain management per surgeon. The Regional Anesthesia Service may be contacted by zone phone [phone] during daytime resource hours,or by pager [phone] at any time. If there is no answer within 20 minutes, call [phone] for the Anesthesiologist software configuration analyst. Celeste Maldonado MD Pager: [phone] * OR Anesthesia - Celeste Maldonado MD - 09/02/2020 9:28 AM CDT 09/02/2020 9:29 AM Regional Anesthesia Service Name: Zee Celis Age: 75 y.o. Sex: female CSN: [id number] Chief complaint: Post operative pain POD # 2 Epidural Infusing at 4 cc/hr Pain scale at rest: 0/10 Pain scale with movement/cough: 2/10 Sedation: no Pruritis: no Nausea/vomiting: no Urinary retention: lockwood catheter in place BP 110/47 (BP Location: Right arm, Patient Position (BP): Sitting) Pulse 77 Temp 37.4 ??C (Axillary) Resp 19 Ht 5' 3.5 (1.613 m) Wt 70 kg (154 lb 4.8 oz) SpO2 96% BMI 26.90 kg/m?? Alert: yes Motor block: no Sensory block: Good pain relief. Epidural site C/D/I: yes Infusing: yes LABS Lab Results Component Value Date/Time WBC 13.0 (H) 09/01/2020 05:57 AM HEMOGLOBIN 9.6 (L) 09/01/2020 05:57 AM POC HEMOGLOBIN 10.2 (L) 08/31/2020 07:31 AM HEMATOCRIT 29.3 (L) 09/01/2020 05:57 AM POC HEMATOCRIT 31 (L) 08/31/2020 07:31 AM PLATELETS 166 09/01/2020 05:57 AM Lab Results Component Value Date/Time INR 1.0 08/18/2020 03:06 PM PROTIME 13.8 08/18/2020 03:06 PM Continue epidural infusion at 4 cc/hr Plan to discontinue epidural catheter tomorrow. Celeste Maldonado MD Pager: [phone] * Operative Report - Edinson Correa MD - 09/01/2020 7:05 PM CDT [facility] OPERATIVE REPORT - [id number] ----- Date of Procedure: 08/31/2020 Name: ZEE CELIS : 1945 Sex: Female Admit Date: 08/31/2020 Room #: 4075 Bed: 1 Admitting Physician: EDINSON CORREA Attending Physician: EDINSON CORREA Referring Physician: , Proceduralist/Surgeon: EDINSON CORREA MD ----- PRE-OPERATIVE DIAGNOSES: right upper lobe lung cancer POST-OPERATIVE DIAGNOSES: right upper lobe lung cancer PROCEDURES PERFORMED: Thoracotomy with lobectomy right upper lobe with lymphadenectomy Right Side RUL (lobectomy) ASSISTANTS: Soil Engineer - KATE PINTO ESTIMATED BLOOD LOSS: < 50 mL FINDINGS: See Post-Operative Diagnoses SPECIMEN REMOVED: Lymph node-Level 10 Lymph node-Level 11 Lung, RUL- Lymph node-Level 4 Lymph node-Level 7 Lymph node-Level 8 COMPLICATIONS: None ANESTHESIA: General DRAINS: chest tubes x 2 INDICATIONS: This is a pleasant 75 year old female with biopsy proven right upper lobe lung cancer The PET scan was negative for metastatic disease or adenopathy. We saw and evaluated the patient. Subsequently we had a discussion with the patient and I recommended to proceed with lung resection. Operation risk benefits and potential complications were all explained to the patient questions were answered possible complications were explained including but not limited to infection bleeding need for transfusion or reexploration postop pain lung and cardiac complications in detail patient agreed to proceed. After preoperative preparation including pulmonary function testing patient was scheduled for surgery OPERATIVE PROCEDURE Patient was brought to the operating room after receiving epidural and general anesthesia with endotracheal intubation with double lumen tube, place in left lateral decubitus position and prepped anddraped. Right posterolateral thoracotomy was performed. Right upper lobe mass was confirmed and after completing the fissure and dividing the RUL pulmonaryvein and artery branches the bronchus was divided. Lymph node dissection was performed. Hemostasis and air tightness of the bronchial stump was checked. Two chest tubes were inserted an thoracotomy was closed in the standard fashion. After extubation, the patient was transferred to PACU in stable condition. DISPOSITION: pacu [id number] by EDINSON CORREA MD, 09/01/2020 19:04 CDT (Approved) Created in [facility] * Brief Op Note - Edinson Correa MD - 09/01/2020 6:49 PM CDT Brief Postoperative Note Zee Celis [id number] Pre-operative Diagnosis: RIGHT LUNG CA Post-Op Diagnosis: * No Diagnosis Codes entered * Procedure(s) and Anesthesia Type: * THORACOTOMY - General * LUNG LOBECTOMY - General Surgeon(s) and Role: * Edinson Correa MD - Primary Additional CPT Codes: *No additional CPT codes listed in log* Procedure Start: 746 Procedure End: 854 Specimens: ID Type Source Tests Collected by Time A : Level 10 Tissue Lymph node PATHOLOGY Edinson Correa MD 08/31/2020 0758 B : Level 11 Tissue Lymph node PATHOLOGY Edinson Correa MD 08/31/2020 0810 C : Tissue Lung, RUL PATHOLOGY Edinson Correa MD 08/31/2020 0820 D : Level 4 Tissue Lymph node PATHOLOGY Edinson Correa MD 08/31/2020 0821 E : Level 7 Tissue Lymph node PATHOLOGY Edinson Correa MD 08/31/2020 0830 F : Level 8 Tissue Lymph node PATHOLOGY Edinson Correa MD 08/31/2020 0831 Implants: Implant Name Type Inv. Item Serial No. Res Habilitation Assistant Lot No. LRB No. Used Action [employer]IP [employer]IG[employer] MED TI [id number] - CSC - [id number] Clip CLIP LIGATING [place]IZ[employer] MED TI [id number] - CSC TELEFLEX- WECK CLOSURE SYS [id number] Right 2 Implanted CLIP LIGATING H[place]IZON LG TI [id number] - CSC - [id number] Clip CLIP LIGATING HORIZON LG TI [id number] - CSCTELEFLEX- WECK CLOSURE SYS [id number] Right 1 Implanted SUTURE TAPE UMBILICAL 30IN U11T - OLD - [id number] SUTURE TAPE UMBILICAL 30IN U11T - OLD [employer] [id number] Right 1 Implanted Estimated Blood Loss: No blood loss documented. Edinson Correa MD * OR Anesthesia - Celeste Maldonado MD - 09/01/2020 8:22 AM CDT 09/01/2020 8:22 AM Regional Anesthesia Service Name: Zee Celis Age: 75 y.o. Sex: female CSN: [id number] Chief complaint: Post operative pain POD # 1 Epidural Infusing at 4 cc/hr Pain scale at rest: 5/10 Pain scale with movement/cough: 8/10 Sedation: no Pruritis: no Nausea/vomiting: no Urinary retention: lockwood catheter in place BP 106/58 (BP Location: Right arm, Patient Position (BP): Supine) Pulse 76 Temp 36.8 ??C (Oral) Resp 16 Ht 5' 3.5 (1.613 m) Wt 66.7 kg (147 lb 2 oz) SpO2 96% BMI 25.65 kg/m?? Alert: yes Motor block: no Sensory block: yes; good pain control per patient Epidural site C/D/I: yes Infusing: yes LABS Lab Results Component Value Date/Time WBC 13.0 (H) 09/01/2020 05:57 AM HEMOGLOBIN 9.6 (L) 09/01/2020 05:57 AM POC HEMOGLOBIN 10.2 (L) 08/31/2020 07:31 AM HEMATOCRIT 29.3 (L) 09/01/2020 05:57 AM POC HEMATOCRIT 31 (L) 08/31/2020 07:31 AM PLATELETS 166 09/01/2020 05:57 AM Lab Results Component Value Date/Time INR 1.0 08/18/2020 03:06 PM PROTIME 13.8 08/18/2020 03:06 PM Continue epidural infusion at 4 cc/hr Plan to discontinue epidural catheter tomorrow. Celeste Maldonado MD Pager: [phone] * OR Anesthesia - Jason Ray MD - 08/31/2020 7:58 AM CDT [facility] Cardiothoracic Anesthesia Service Epidural Procedure Note 08/31/2020 7:58 AM I have discussed with the patient, and/or surrogate, the placement of an epidural catheter and/or the use of epidural narcotics/local anesthetic for postoperative pain management, including potentialrisks, benefits, complications and side effects. I have also discussed alternative methods of postoperative analgesia. The patient, and/or surrogate, understands and wishes to proceed with the epidural narcotic/local anesthetic for postoperative analgesia. A timeout was performed immediately before starting the procedure which confirmed: Correct patient? Yes Correct procedure verified with patient and/or surrogate? Yes Correct procedure verified wth the surgical consent and the surgery schedule? Yes Correct side and site for peripheral nerve block/catheter? Yes Immediate availability of any special equipment or requirements? Yes Patient Position: sitting in midline Skin Prep: Betadine: No Chlorhexidine: Yes Sterile Drapes: Yes Needle: 18 ga Tuohy-Schliff: Yes 18 ga Brooks: No Catheter: 20 ga catheter: Yes DepoDur TM Injection: No Dose = ml Technique: Loss of Resistance: Yes Hanging Drop: No Level of Insertion: T6-7 Catheter at Skin: 12 cm Amount of catheter in epidural space: 5 cm Local Anesthetic Agents: Skin Anesthesia: 1% lidocaine 3 ml Test Dose: 1.5% Lidocaine with 1:200,000 Epi 3 ml given @ 0655 Observations: Blood: no CSF: no Pain: no Paresthesia: no Resistance: no Complications: None Jason Ray MD Pager: [phone] If no answer please call [phone] * Anesthesia PAT Evaluation - Yoel Duenas MD - 08/18/2020 2:56 PM BEHAVIOUR SUPPORT TEACHER Images from the original note were not included. Pre-Procedure Anesthesiology Consultation and Evaluation (PACE) Service 08/18/2020 3:43 PM Name: Zee Celis Age: 75 y.o. Sex: female CSN: [id number] Procedure(s): THORACOTOMY Allergies Allergen Reactions ??? Penicillins Hives Pre-Surgery Instructions: Medication Instructions ??? cyanocobalamin (VITAMIN B-12) 100 mcg tablet Stop taking 1 week prior to surgery ??? calcium-cholecalciferol (OS-SUSAN 500+D) 500 mg(1,250mg) -200 unit tablet Stop taking 1 week prior to surgery ??? glucosamine sulfate 500 mg Capsule Stop taking 1 week prior to surgery ??? magnesium oxide 250 mg magnesium Tablet Stop taking 1 week prior to surgery ??? aspirin (ECOTRIN EC) 81 mg Tablet, Delayed Release (E.C.) Last dose - day prior to surgery per Dr. Correa ??? cholecalciferol, vitamin D3, (VITAMIN D3 ORAL) Stop taking 1 week prior to surgery ??? hydroCHLOROthiazide 25 mg tablet Continue taking as prescribed ??? olmesartan (BENICAR) 40 mg tablet Take morning of surgery with sip of water ?? Advised pt to stop the following medications on :ASA/NSAIDs per surgeon Patient Active Problem List Diagnosis Date Noted ??? Non-small cell cancer of right lung 08/13/2020 Past Medical History: Diagnosis Date ??? Arthritis ??? Dyspnea on exertion ??? GERD (gastroesophageal reflux disease) ??? HTN (hypertension) ??? Hx of degenerative disc disease ??? Injury of back DDD ??? Malignant neoplasm of lung Past Surgical History: Procedure Laterality Date ??? HX ANKLE SURGERY ??? HX COLONOSCOPY W/ POLYPECTOMY ??? HX HYSTERECTOMY ??? HX TONSILLECTOMY ??? HX TRIGGER FINGER REPAIR Social History Tobacco Use ??? Smoking status: Former Smoker Packs/day: 0.50 Years: 40.00 Pack years: 20.00 Types: Cigarettes Quit date: 08/19/1999 Years since quittin.0 ??? Smokeless tobacco: Never Used Substance Use Topics ??? Alcohol use: Yes Frequency: Monthly or less Comment: occasional Family History Problem Relation Name Age of Onset ??? Heart Disease Father ??? Heart Disease Mother ??? Stroke Sister ??? Asthma Sister Previous Anesthesia Problems/Concerns: No anesthesia problems/complications History of PONV No Review of Systems Cardiovascular: positive for HTN. Denies cp Respiratory: positive for RUL lung CA, CONDE,Snoring - Yes, LLUVIA - No Gastrointestinal: positive for GI upset (pt denies GERD)- had been on PPI, but no longer required per pt. Genitourinary:negative. Musculoskeletal: positive for myalgias, arthralgias and stiff joints Neurological: negative Endocrine negative Hepatic negative Exercise tolerance able to go up 2 flight of stairs w/o cp, may have sob- pt notes this has been present since pneumonia (not COVID) Tobacco quit 1999 PHYSICAL EXAM BP (!) 157/73 Pulse 63 Ht 5' 3 (1.6 m) Wt 68 kg (150 lb) SpO2 97% BMI 26.57 kg/m?? Weight: Weight: 68 kg (150 lb) (08/18/20 1535) Height: Ht Readings from Last 1 Encounters: 08/18/20 5' 3 (1.6 m) BMI: Body mass index is 26.57 kg/m??. General Appearance: Alert, oriented, no acute distress Airway: normal range of motion; Airway Class: II (soft palate, uvula, fauces visible); Special Considerations None Dentition: good Lungs: clear to auscultation bilaterally, normal respiratory effort Heart: regular rate and rhythm, S1, S2 normal, occasional extra systole, no murmur, click, rub or gallop Neuro: alert, oriented x 3, no defects noted in general exam. Extremities: extremities normal, atraumatic, no cyanosis or edema LABS No results found for: WBC, MANUALWBC, HGB, HGBPOC, HCT, HCTPOC, PLT, MCV No results found for: NA, K, CL, CO2, CA, BUN, CREAT, GLUCOSE, ANIONGAP, BCRATIO No results found for: INR, PT, PROTIMEPOC No results found for: HCGURPOC, HCGQUALUR, HCGQUAL, HCGQUANT, HCGINTACT EK08-18-20 normal sinus rhythm, PAC's noted Other Studies/Considerations: CT Scan PET 08-05-20 Risks/Alternatives discussed. Questions solicited and answered. Yes Postop pain management discussed yes Smoking/Tobacco Counseling: None Recommendations:None ATTESTATIONS No medications prior to admission. I obtained, updated or reviewed the patient's current medications including dosage, frequency, and route of administration. This information was obtained directly from the patient or farm loan representative or caregiver or another available healthcare resource and updated in [employer] EMR. Social History Tobacco Use Smoking Status Former Smoker ??? Packs/day: 0.50 ??? Years: 40.00 ??? Pack years: 20.00 ??? Types: Cigarettes ??? Quit date: 08/19/1999 ??? Years since quittin.0 Smokeless Tobacco Never Used Patient screened for tobacco use and identified as a Non-User of tobacco. REPORT AND NECESSARY FOLLOW-UP History and physical performed in [facility]; tests (ECG, blood work) reviewed. Abnormal Results Found: no Further Testing or Evaluation Required: no, requesting stress test from last few yrs done at [facility] Review: May proceed with procedure/surgery: no, awaiting stress test from [facility] Stop bang score is 3 CAT Narvaez I, Yoel Duenas MD, attest that I have reviewed the Advanced Practitioner's note - including the history, documented findings, assessment, and plan. I agree with the plan as documented except where noted. Yoel Duenas MD VIOUR SUPPORT TEACHER documented in this encounter Miscellaneous Notes * Care Plan - Maira Curtis RN - 09/06/2020 4:04 PM CDT Pt discharged to home per protocol. Discharge instructions given. Questions encouraged and answered. The patient verbalized understanding. Incisions healing well, no drainage, no erythema, no hernia,no seroma, no swelling, well approximated. All belongings accounted for. Pt taken to lobby via wheel chair per patient transport. * Care Plan - Margo Lee, Plaster Machine Operator - 09/06/2020 8:27 AM CDT Problem: Physical Mobility, Impaired Goal: Mobility goal: Improve transfer ability by discharge Description: Patient will transfer supine to sit and bed to/from chair with supervision. Outcome: Progressing Goal: Mobility goal: Improve ambulation by discharge Description: Patient will ambulate 1000 feet on level surface, without assistive device, with supervision so patient can navigate discharge environment. Outcome: Progressing Goal: Mobility goal: Ascend/descend stairs by discharge Description: Patient will ascend/descend 20 steps with 1 handrails with supervision for home/community mobility. Outcome: Progressing Flowsheets (Taken 09/06/2020 0804) Mon: X Location: rib cage Pain Rating: Rest: 4 Pain Management Interventions: unnecessary movement avoided Response to Interventions: content/relaxed Present Activity: ambulated chair Total Treatment Time (min): 23 PT Current Discharge Recommendation: Home with home health PT Home with 24-hour supervision PT Recommended DME: No new DME recommended PT Treatment Start Time: 803 PT Treatment Stop Time: 826 S: Patient agreeable to therapy. O: Cognition/ Perception: Alert and oriented, follows commands, pleasant and cooperative Weight Bearing: no restrictions Skin Integrity: No issues noted with pt's visible/exposed skin. Precautions: Fall Exercises: Bilateral LE AROM x 15 reps, sitting Type: Sitting exercises: hip flexion, hip abduction/adduction, Long arc quads, gluteal sets, ankle pumps --LE ROM performed to increase ROM, increase strength, increase muscular endurance, prevent loss ofjoint mobility to promote independence with functional mobility and gait. MOBILITY ASSESSMENT Bed Mobility: supine to sit SBA for supervision. At EOB with SBA. Transfers: sit <--> stand SBA for supervision. Gait: 15' x 1 and 300' x 1 without assistive device and SBA. --Gait deviations: decrease carrie, guarded gait, steady gait, no loss of balance noted. Stairs: NA- pt declined and states that she will take the elevator when she goes home. Equipment to be issued at discharge: none Education: Role of PT Other: No visitors present during PT. RN aware that pt's heart rate 115-135 and respiratory rate went up to 40's with gait. Pt needing rest breaks during PT due to fatigue. Positioning after tx: Pt sitting in the recliner at end of PT, call button in reach, lines intact, elevated bilateral LE with pillow, heels floating, sitting on a waffle cushion, chair alarm on, needs met and RN aware. A: Response to treatment: Progressing towards goals, Assessment Ongoing Recommend: Home with home health, Home with supervision/24 hour daily Recommendations were made on today's assessment. Additional recommendations will be based on patient's progress in therapy. P: Continue PT 2-5x/wk at bedside for Transfer training, Gait training, Exercises, Balance training, unless change in status or patient is discharged from the facility. Plan of Care developed, as indicated by PT assessment and patient's current status. Please refer to plan of care for updates on goals. Zone #: [id number] * Care Plan - Keya Goodman RN - 09/06/2020 5:36 AM CDT Shift Note: No acute changes this shift. Pt anticipates DC 09/06. Neuro: A&Ox4. CV: rate-controlled Afib HR 80-90s. Resp: Clear/diminshed lung sounds. GI: Active bowel sounds. : Pt urinates per toilet. Adequate output of clear/yellow urine. Pain/Delirium/Sleep: Pain controlled with pain medications and repositioning. Activity: Appropriate level of activity up in room; sigala; q2 repositioning. Patient in bed/up in room this shift. Shift Undress and Assess performed by two coworkers: 1. TUNDE Rao 2. TUNDE Laura The patient does not have existing skin breakdown, if yes, describe: The patient does not have new purple/zack/dark red over ANY bony prominences (ears, elbows, knees, heels, coccyx, hips, occiput), if yes, describe: ~If ANY answer 'yes'- please re-consult and call wound care~ Wound care consult was not in place. Wound care consult was not initiated. Are there currently any skin protectant dressings in place, if yes, where? No If yes, please describe condition of skin under dressing: If no, were any applied and where: No Are there any currently any medical devices in place (leg immobilizers, FMS, c- collars, splints, etc.)? No If yes, describe skin under device: N/A Education: Patient has Riki Score of 15. Patient educated on importance of q2 hour repositioning and use of positioning supports to prevent skin breakdown. Also educated patient on importance of CHG bathing during hospitalization as infection prevention measure. Educated patient on high fall riskprecautions, use of assistive devices, and use of call light. Explained that patient has increased risk of fall during hospitalization due to telemetry/monitoring devices, new medications, and clinical status, and that patient should not attempt to get up without assistance from staff. Patient/family demonstrates understanding of stated education. * Care Plan - Luciana Talamantes RN - 09/03/2020 4:47 PM CDT Shift Note: No acute events this shift. Epidural and lockwood d/c. Neuro: Aox4, afebrile. CV: Remains in afib HR 70-80s. SBP 110s. On amio gtt @ 0.5mg/min. Resp: On RA, lungs CTA. CT continued H2O seal. GI: +BS+Flatus-BM this shift. Bowel regimen started. : Lockwood removed @ 1500. Pain/Delirium/Sleep: Pain well controlled on PO regimen. No delirium. Activity: Appropriate level of activity independent repositioning. Patient walked and up in chair x2 this shift. Shift Undress and Assess performed by two coworkers: 1. Luciana GRIFFITHS 2. Calixto CARPIO The patient does not have existing skin breakdown, if yes, describe: The patient does not have new purple/zack/dark red over ANY bony prominences (ears, elbows, knees, heels, coccyx, hips, occiput), if yes, describe: ~If ANY answer 'yes'- please re-consult and call wound care~ Wound care consult was not in place. Wound care consult was not initiated. Are there currently any skin protectant dressings in place, if yes, where? None If yes, please describe condition of skin under dressing: If no, were any applied and where: Are there any currently any medical devices in place (leg immobilizers, FMS, c- collars, splints, etc.)? None If yes, describe skin under device: Education: Patient has Riki Score of Riki Score: Riki Score: 18 (09/03/20 0800) . Patient educated on importance of q2 hour repositioning and use of positioning supports to prevent skin breakdown. Also educated patient on importance of CHG bathing during hospitalization as infection prevention measure. Educated patient on high fall risk precautions, use of assistive devices, and use of call light. Explained that patient has increased risk of fall during hospitalization due to telemetry/monitoring devices, new medications, and clinical status, and that patient should not attempt to get up without assistance from staff. Patient/family demonstrates understanding of stated education. * Care Plan - Brandee Cole, Physical Therapist - 09/03/2020 12:36 PM CDT Problem: Physical Mobility, Impaired Goal: Mobility goal: Improve transfer ability by discharge Description: Patient will transfer supine to sit and bed to/from chair with supervision. Outcome: Progressing Goal: Mobility goal: Improve ambulation by discharge Description: Patient will ambulate 1000 feet on level surface, without assistive device, with supervision so patient can navigate discharge environment. Outcome: Progressing Goal: Mobility goal: Ascend/descend stairs by discharge Description: Patient will ascend/descend 20 steps with 1 handrails with supervision for home/community mobility. Outcome: Progressing Flowsheets Taken 09/03/2020 1233 by Brandee Cole, Physical Therapist Sat: X BP: 117/85 Location: rib cage Pain Rating: Rest: 0 Pain Rating: Activity: (had meds, repositioned) 8 Pain Management Interventions: premedicate for activity positioning unnecessary movement avoided Response to Interventions: content/relaxed Assistive Devices Used: Gait belt Ambulation device Ambulation Distance (feet): 120 Present Activity: up in sigala Physical Assist/Nonphysical Assist: w/ 1 person assist Total Treatment Time (min): 32 PT Current Discharge Recommendation: Home with 24-hour supervision Home with home health PT PT Treatment Start Time: 1136 PT Treatment Stop Time: 1208 Taken 09/03/2020 0800 by Luciana Talamantes, RN Assistive Devices Screening: Gait belt Front wheeled walker Taken 09/02/2020 1045 by Sudha Mancilla, Physical Therapist PT Recommended DME: Front Wheeled Walker S: Patient agreeable to therapy. Pt up in recliner with chest tube, lockwood, tele, IV. Epidural was removed this AM - pt reporting increased pain but that it's managed with oral meds. O: Cognition/ Perception: Alert and oriented x 4 Weight Bearing: No restrictions \ Skin Integrity: intact incision R flank, chest tube to R flank Precautions: Fall Exercises: Bilateral LE AROM x 10 reps, sitting Type: Sitting exercises: hip flexion, hip abduction/adduction, Long arc quads, gluteal sets, ankle pumps --LE ROM performed to increase ROM, increase strength, increase muscular endurance, prevent loss ofjoint mobility to promote independence with functional mobility and gait. MOBILITY ASSESSMENT Bed Mobility: sit to supine close sba for line management. Pt able to reposition hips in bed independently. Transfers: sit to/from stand from recliner to wwr sba - cues on hand placement. Gait: 120' wwr close sba --Gait deviations: Pt notes feeling greatly improved from yesterday, denies dizziness. Ambulates with slow steady gait. Distance limited by fatigue. Assist primarily for line management and supervision while making turn to back up to bed prior to sitting. Stairs: NA - pt has elevated access. Equipment to be issued at discharge: front wheeled walker Education: functional mobility, LE exercises Other: BP in sitting prior to activity 118/39 - called RN who was OK with pt participating in therapy. BP in standing, after seated exercises: 122/55, pt denies dizziness BP in supine following ambulation: 117/85 Positioning after tx: Pt resting comfortably in bed, positoned with pillows for comfort and pressure relief, lines intact, alarm on, call light and all needs in reach. A: Response to treatment: Progressing towards goals Recommend: Home with home health, Home with supervision Recommendations were made on today's assessment. Additional recommendations will be based on patient's progress in therapy. P: Continue PT 2-5x/wk at bedside for Transfer training, Gait training, Exercises, Balance training, unless change in status or patient is discharged from the facility. Plan of Care developed, as indicated by PT assessment and patient's current status. Please refer to plan of care for updates on goals. Zone #: [id number] * Care Plan - Keiry Santoyo, RN - 09/03/2020 6:03 AM CDT ? Approved by: [facility] - Medical Executive Committee Approval Date: 10/07/2019 Adult Bowel Routine Protocol- [facility] ORDERS ARE ENTERED ???PER PROTOCOL?? Enter the protocol in the patient???s electronic health record using [employer] .adultbowelroutineprotocol Patient Population: RN to initiate for patients utilizing or have anticipated utilization of OPIOIDS 2 or more times per day and/or patients who have not had a bowel movement within 48 hours, either prior to admission or during current admission. Patient population excluded from protocol (contact provider for bowel routine orders): Patients with bowel obstruction, Post GI surgery or anyone with status of NPO that cannot take medications by mouth. ??? RN to hold ordered bowel medications if patient is experiencing loose stools or has more than 2bowel movements per day. Nursing Orders: ??? Encourage adequate oral hydration as permissible per ordered diet ??? Encourage ambulation as per activity order ??? Encourage gum chewing as patient is able to participate between meals Medication Orders: Note: If at any time patient is experiencing loose stools or has more than 2 bowel movement per day, RN to HOLD ordered bowel medications. ??? Upon initiation: o Scheduled bowel therapy o Senna S 2 tablets by mouth daily at bedtime, first dose may be given now. o PRN therapy (Offer PRN therapy, patient to select which they would prefer) o Miralax 17 grams mixed in water/juice/soda by mouth every 12 hours PRN constipation o Dulcolax 1 suppository given rectally every 12 hours PRN constipation o If no bowel movement within 24 hours proceed to step 2. ??? Step 2: o Scheduled bowel therapy (increase scheduled therapy) o Continue Senna S 2 tablets by mouth twice daily. o Add Miralax 17 grams mixed in water/juice/soda by mouth twice daily, first dose may be given now. o PRN therapy (Offer PRN therapy, patient to select which they would prefer) o Dulcolax 1 tablet by mouth every 12 hours PRN unrelieved by scheduled bowel routine o Dulcolax 1 suppository given rectally every 12 hours PRN constipation unrelieved by scheduled bowel routine o If no bowel movement within 24 hours or more on Step 2 medications, proceed to step 3 ??? Step 3: o Scheduled bowel therapy (add to scheduled therapy) o Increase Senna S to 3 tablets by mouth twice daily o Miralax 17 grams mixed with water/juice/soda by mouth twice daily, first dose may be given now. o PRN therapy (Offer PRN therapy, patient to select which they would prefer) o Dulcolax 2 tablets by mouth every 12 hours PRN unrelieved by scheduled bowel routine o Dulcolax 1 suppository given rectally every 12 hours PRN constipation unrelieved by scheduled bowel routine o If no bowel movement within 24 hours or more on Step 3 medications, proceed to Step 4. ??? Step 4: o Administer current scheduled and PRN therapy o Contact provider for further orders. If during nightshift, contact provider during morning rounds. * Care Plan - Keiry Santoyo RN - 09/03/2020 4:15 AM CDT Shift Note: Patient was in Afib this shift, has not converted to NSR. Amiodarone Iv gtts infusing at 0.5 mg/hour. Epidural at 4 ml/hour. Adequate output in lockwood catheter this shift. Neuro: A/Ox4. CV: Afib rate controlled. Asymptomatic. Resp: Room air GI: No BM this shift. : Voids per lockwood catheter. Lockwood care X2 this shift. Adequate clear/yellow urine this shift. Pain/Delirium/Sleep: No complaints of pain this shift. Shift Undress and Assess performed by two coworkers: 1. TUNDE Ricci 2. TUNDE Johnson The patient does have existing skin breakdown, if yes, describe: Blanchable erythema on gluteus, reminding patient to turn Q2 hours. The patient does not have new purple/zack/dark red over ANY bony prominences (ears, elbows, knees, heels, coccyx, hips, occiput), if yes, describe: ~If ANY answer 'yes'- please re-consult and call wound care~ Wound care consult was not in place. Wound care consult was not initiated. Are there currently any skin protectant dressings in place, if yes, where? If yes, please describe condition of skin under dressing: If no, were any applied and where: Are there any currently any medical devices in place (leg immobilizers, FMS, c- collars, splints, etc.)? If yes, describe skin under device: Education: Patient has Riki Score of 17. Patient educated on importance of q2 hour repositioning and use of positioning supports to prevent skin breakdown. Also educated patient on importance of CHG bathing during hospitalization as infection prevention measure. Educated patient on high fall riskprecautions, use of assistive devices, and use of call light. Explained that patient has increased risk of fall during hospitalization due to telemetry/monitoring devices, new medications, and clinical status, and that patient should not attempt to get up without assistance from staff. Patient/family demonstrates understanding of stated education. * Care Plan - Luciana Talamantes RN - 09/02/2020 4:54 PM CDT Shift Note: No acute events this shift. Neuro: Aox4, afebrile. CV: Remains in afib, HR 80s while at rest and 120s during activity. SBP 90-120s. On amio gtt @ 0.5mg/min. Amio bolus given this AM. Resp: On RA-2L NC. Lungs CTA. CT continued H2O seal. GI: +BS+Flatus-BM this shift. Small episode of emesis while ambulating in the hallway with PT this AM. : voiding per lockwood. Pain/Delirium/Sleep: Pain well controlled with epidural in place @ 4 mL/hr. No delirium. Took a fewshort naps this morning. Activity: Appropriate level of activity independent repositioning. Patient walked x1 and up in chair this shift. Shift Undress and Assess performed by two coworkers: 1. Luciana RN 2. Calixto [employer] SUPERINTENDENT The patient does not have existing skin breakdown, if yes, describe: The patient does not have new purple/zack/dark red over ANY bony prominences (ears, elbows, knees, heels, coccyx, hips, occiput), if yes, describe: ~If ANY answer 'yes'- please re-consult and call wound care~ Wound care consult was not in place. Wound care consult was not initiated. Are there currently any skin protectant dressings in place, if yes, where? None If yes, please describe condition of skin under dressing: If no, were any applied and where: Are there any currently any medical devices in place (leg immobilizers, FMS, c- collars, splints, etc.)? None If yes, describe skin under device: Education: Patient has Riki Score of Riki Score: Riki Score: 18 (09/02/20 0800) . Patient educated on importance of q2 hour repositioning and use of positioning supports to prevent skin breakdown. Also educated patient on importance of CHG bathing during hospitalization as infection prevention measure. Educated patient on high fall risk precautions, use of assistive devices, and use of call light. Explained that patient has increased risk of fall during hospitalization due to telemetry/monitoring devices, new medications, and clinical status, and that patient should not attempt to get up without assistance from staff. Patient/family demonstrates understanding of stated education. * Therapy Evaluation - Sudha Mancilla, Physical Therapist - 09/02/2020 11:23 AM CDT Physical Therapy order received, chart reviewed, and evaluation completed. Please see full evaluation below for details. Daily PT notes will be located in Care Plan notes. Thank You. PT INITIAL EVALUATION Reason for Admission: S/P Right Thoracotomy and Upper Lobe Resection 08/31 Ordered by: SUZY Peoples Activity Order: Ambulate with assist Weight Bearing Status: No restrictions Precautions: Fall PMH: Past Medical History: Diagnosis Date ??? Arthritis ??? Dyspnea on exertion ??? GERD (gastroesophageal reflux disease) ??? HTN (hypertension) ??? Hx of degenerative disc disease ??? Injury of back DDD ??? Malignant neoplasm of lung S: Patient agreeable to therapy. Patient reports 0/10 pain. Pt presents resting supine in bed, alone in room. Pt denies pain. Pain intervention: Unneccessary movement avoided, Repositioned for comfort, No intervention required Response to pain intervention: Appeared content, Agrees to continue Living Situation/Functional Level DATABASE MANAGER: Pt lives alone in 1-level condo. 20 stairs to enter with handrail, or elevator option. Pt reports she prefers to take stairs. Pt states her son plans to stay with her after d/c from hospital. Home Equipment: None O: Appearance: 75 y/o female, supine in bed, chest tube intact, lockwood cath, telemetry, IV infusing. Cognition/Perception: A/O x4, appropriate conversation, pleasant. Skin Integrity: Intact, no visible injury to skin. ROM: Bilateral Upper Extremity WFL, Lower Extremity WFL Muscle Tone: WFL Strength: Bilateral Upper Extremity Decreased: grossly 3+/5, Lower Extremity Decreased: grossly 3+/5 Sensation: Grossly intact to light touch. MOBILITY ASSESSMENT: Bed Mobility: Supine > sitting EOB, SBA. Pt sits EOB x5 minutes with SBA. Gait belt donned at this time. Transfers: Sit <> stand x2, Min A x1 for force production and balance. WWR used. Gait: 120 feet, WWR, Min A x1. --Gait Deviations: Pt reports N/V after 30 feet of ambulation, 1 seated rest break, RN present. BP assessed during rest break, 82/44 (51) mmHg. Pt returned to chair in room, BP re-assessed, 133/47 (68) mmHg. Pt reports slight feeling of lightheadedness, otherwise feeling fine. Balance: Sitting good, standing fair (+) Stairs/Curb: Not assessed this date. Patient/Family Education: PT plan of care, role of PT. Positioning after tx: Patient positioned up in chair with chair alarm on/patient educated on alarm,all lines intact, call light in reach, B UE/LEs elevated for comfort and maintained skin integrity,all needs met, heels floated, RN aware A: Disabilities: Decreased strength, decreased functional mobility, decreased endurance, decreased activity tolerance, impaired balance. Assessment: Patient would benefit from skilled therapy to address above disabilities. Clinical Presentation: Stable and/or uncomplicated EVALUATION COMPLEXITY: Low Complexity -These findings are based on patient's self reporting, therapist's objective findings and professional determinations. Recommend: Home with supervision;Home with home health PT;Home with assistance (09/02/201044) Recommendations were made on today's assessment. Additional recommendations will be based on patient's progress in therapy. P: PT to see patient: At bedside 2-5x/wk. Will continue therapy unless patient has a change in status or patient is discharged from the facility. Plan of Care developed, as indicated by PT assessmentand patient's current status. Treatment Plan: Patient to be seen for Transfer training, Gait training, Exercises, Balance training Recommendations: For: Patient, Family, Nursing --OOB to chair with chair alarm, ambulate in room or hallway, with assist Equipment to be issued at DC: Front Wheeled Walker (09/02/20 104) --Patient involved in goal setting: yes Patient goals will be found in the Care Plan section of the medical chart. Zone #: [id number] On weekends--please call [phone] * Care Plan - Katya Simeon RN - 09/02/2020 9:22 AM CDT Problem: Discharge Planning Goal: Identify discharge needs upon admission and through discharge Description: Outcome: Progressing DC plan [facility]. Son and friend can assist on DC Katya Simeon RN/[facility] Management [phone] * Care Plan - Keiry Santoyo RN - 09/02/2020 12:44 AM CDT Shift Note: Patient converted into Afib with rates 90-110's at 1220, Obtained an EKG 12 lead to verify. Called Dr. Correa and he gave orders to give 20 Meq potassium, and Amiodarone bolus/Drip. Neuro: A/OX4 CV: Went into afib around midnight, Converted into NSR around 0330. Resp: Room air-NC 2 liters when asleep. GI: Bowel sounds + : Voids per lockwood catheter, Adequate output this shift, Lockwood Care X2. Pain/Delirium/Sleep: No complaints of pain, Epidural at 4 ml/hour. Shift Undress and Assess performed by two coworkers: 1. TUNDE Ricci 2. TUNDE Johnson The patient does not have existing skin breakdown, if yes, describe: The patient does not have new purple/zack/dark red over ANY bony prominences (ears, elbows, knees, heels, coccyx, hips, occiput), if yes, describe: ~If ANY answer 'yes'- please re-consult and call wound care~ Wound care consult was not in place. Wound care consult was not initiated. Are there currently any skin protectant dressings in place, if yes, where? If yes, please describe condition of skin under dressing: If no, were any applied and where: Are there any currently any medical devices in place (leg immobilizers, FMS, c- collars, splints, etc.)? If yes, describe skin under device: Education: Patient has Riki Score of 18. Patient educated on importance of q2 hour repositioning and use of positioning supports to prevent skin breakdown. Also educated patient on importance of CHG bathing during hospitalization as infection prevention measure. Educated patient on high fall riskprecautions, use of assistive devices, and use of call light. Explained that patient has increased risk of fall during hospitalization due to telemetry/monitoring devices, new medications, and clinical status, and that patient should not attempt to get up without assistance from staff. Patient/family demonstrates understanding of stated education. * Care Plan - Katya Simeon RN - 09/01/2020 3:26 PM CDT Problem: Discharge Planning Goal: Identify discharge needs upon admission and through discharge Description: 09/01/2020 1002 by Katya Simeon RN Outcome: Progressing Mick [phone] from [facility] called who said they can accept patient when ready to DC and to Fax DC orders/Summary to [phone]. Patient choice form signed Katya Simeon RN/Christin Moore [phone] * Care Plan - Katya Simeon RN - 09/01/2020 10:02 AM CDT Problem: Discharge Planning Goal: Identify discharge needs upon admission and through discharge Description: Outcome: Progressing Dc plan is home with son and friend assist vs [facility] Katya Simeon RN/Christin Moore [phone] * Care Plan - Katya Simeon RN - 08/31/2020 4:05 PM CDT Discharge Planning Progressing Initial Discharge Planning Assessment completed. Discussed Care Management's role and Discharge planning. Declining Post Acute facility Discharge Plan: home with son and friend assist vs [facility]. [facility] referrals sent Patient's specific goal of care is: Patient's Individualized Goal: rest Patient will potentially discharge to a SNF/NH? No Care Management visited with , patient, via: in person. Prior to admission, patient resides at: [facility] Home is 3 level with 6 steps, and 2 rails. Prior to admission, living arrangements: lives alone.Son and friend who is C RN can assist on DC Prior to admission, does patient use any of the following DME? No Services in the home: no with no company. Emergency contact(s): Extended Emergency Contact Information Primary Emergency Contact: rylan celis Mobile Relation: Son Preferred language: Citizen Of [place] Intake Assessor needed? No Secondary Emergency Contact: ashanti seals Mobile Relation: Granddaughter Preferred language: Citizen Of [place] Intake Assessor needed? No POA/Surrogate Decision Maker: bright Celis Patient identified bright Celis as their Primary Caregiver. Patient does want caregiver involved in discharge planning. Caregiver is willing and able to assist with patient's care. Caregiver has not been contacted. Attempted to call but was unavailable LM Insurance coverage verified: Payor: ANDREAS truedash / Plan: MEDICARE ADVANTAGE HMO / Product Type: Medicare Managed Care / Prescription coverage: yes Preferred Pharmacy verified: [id number] - [place], [place] - [address] Employment Status: Retired Has VA Benefits: no PCP verified as Aliza Bain MD Patient has not had a stay at an acute care hospital in the last 30 days. Recent Falls?: Last Known Fall: No falls Plan for transportation at discharge: bright Celis Patient has a [employer] account: no Patient has a smart device: Yes Patient's mobile number verified: Yes. Patient's number: No relevant phone numbers on file. Patient is able to receive text messages: Yes Patient has access to the internet: Yes Readmission Risk Score is Readmission Risk (patient becomes high risk with a score of 8 or greater) 0 Total Score (Last filed: Aug 31, 2020 0600) Comments: Independent with activities of daily living, cooking, cleaning and drives Care Management contact information provided. Care Management will continue to follow and assist asneeded. [facility] [phone] * Care Plan - Sada Berg RN - 08/31/2020 9:18 AM CDT Potential for pain related to surgical/procedural intervention Interventions: Assess level of pain/comfort utilizing verbal/nonverbal pain scales; assess culturalor zoroastrian indicators attached to pain; administer pain medications as prescribed; utilize non-pharmacologic pain control and comfort measures Expected Outcome: Patient demonstrates and reports adequate pain control Outcome Met: prn meds available, pain well controlled Potential for alteration in thermoregulatory, circulatory, respiratory fluid & electrolyte status Interventions: Perform ongoing physical assessment; maintenance of airway or mechanical ventilation; monitor level of consciousness; initiate safety measures; observe patient???s respiratory status and oxygen saturation; obtain measurements of ongoing hemodynamic parameters, cardiac rhythm, and temperature; monitor intake and output; inspect wound dressings and/or drain output; perform prescribedtherapeutic regimens, treatments and tests; document and/or communicate care given Expected Outcome: Patient will maintain functional status compatible with preoperative status Outcome Met: vss, normothermic, patient able to maintain O2 sats, no bleeding or hematoma from surgical site * Certification - Arash Watson PA - 08/31/2020 5:52 AM CDT I certify that inpatient services are reasonable and necessary for this patient. The expected length of inpatient stay is greater than two midnights in an acute care hospital based on his/her clinical condition and planned therapy. Inpatient services are required due to the patient's active risk factors which include: s/p thoracotomy. Post hospital disposition of this patient is most probably: Home documented in this encounter Plan of Treatment Upcoming Encounters Date Type Department Care Team (Late st Contact Info) Description 2024 11:00 AM BEHAVIOUR SUPPORT TEACHER Appointment [facility] S [facility] [address] [place] [address] 07/21/2024 9:45 AM BEHAVIOUR SUPPORT TEACHER Appointment [facility] [address] [place] [address] Sarbjit Brooks MD [address] [address] 07/21/2024 9:53 AM BEHAVIOUR SUPPORT TEACHER Hospital Encounter [facility] [address] [place] [address] Sarbjit Brooks MD [address] [facility] [address] [place] [address] Paroxysmal A-fib 07/21/2024 9:53 AM BEHAVIOUR SUPPORT TEACHER - 07/21/2024 11:46 AM BEHAVIOUR SUPPORT TEACHER Surgery [facility] [address] [place] [address] Sarbjit Brooks MD [facility] S [facility] [address] [place] [address] Left atrial appendage closure percutaneous 07/28/2024 8:30 AM BEHAVIOUR 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 Office Visit [facility] Oncology and Hematology - [place] [address] [phone] Nahid Hickman MD [address] [facility] [address] [place] [address] 09/09/2024 1:00 PM CDT Office Visit [facility] Heart and Vascular At [address] [place] [address] Sarbjit Brooks MD [facility] S [facility] [address] [place] [address] 12/16/2024 11:00 AM CDT Office Visit [facility] HEART AND VASCULAR EP AT [address] [place] [address] Demetrius Bowling DNP [facility] S [facility] [address] [place] [address] 02/05/2025 10:45 AM CDT Telephone Check Up [facility] Heart and Vascular At [address] [place] [address] 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, 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 [address] [place] [phone] documented as of this encounter Procedures Procedure Name Priority Date/Time Associated Diagnosis Comments HOLTER MONITOR 09/22/2020 5:21 PM CDT XR CHEST PA AND LATERAL 2 VW Routine 09/06/2020 4:58 AM CDT XR CHEST PA AND LATERAL 2 VW Routine 09/05/2020 5:21 AM CDT MAGNESIUM LEVEL Routine 09/04/2020 6:22 AM CDT BASIC METABOLIC PANEL Routine 09/04/2020 6:22 AM CDT XR CHEST PA OR AP 1 VW Routine 09/04/2020 6:00 AM CDT MAGNESIUM LEVEL Routine 09/03/2020 5:42 AM CDT BASIC METABOLIC PANEL Routine 09/03/2020 5:42 AM CDT XR CHEST PA AND LATERAL 2 VW Routine 09/03/2020 5:30 AM CDT MAGNESIUM LEVEL Routine 09/02/2020 7:40 AM CDT BASIC METABOLIC PANEL Routine 09/02/2020 7:40 AM CDT XR CHEST PA OR AP 1 VW Routine 09/02/2020 5:35 AM CDT EKG 12-LEAD Routine 09/02/2020 12:28 AM CDT DIFFERENTIAL, MANUAL Routine 09/01/2020 5:57 AM CDT CBC WITH DIFFERENTIAL Routine 09/01/2020 5:57 AM CDT BASIC METABOLIC PANEL Routine 09/01/2020 5:57 AM CDT XR CHEST PA OR AP 1 VW Routine 09/01/2020 5:30 AM CDT POC GLUCOSE Routine 08/31/2020 7:24 PM CDT XR CHEST PA OR AP 1 VW Stat 08/31/2020 10:15 AM CDT PATHOLOGY Pathology 08/31/2020 7:58 AM CDT POC LACTIC ACID Routine 08/31/2020 7:31 AM CDT BLOOD GAS,(INCL. H+H, LYTES, GLUC) Routine 08/31/2020 7:31 AM CDT DE RMVL LUNG OTHER THAN PNEUMONECTOMY 1 LOBE LOBECT 08/31/2020 6:37 AM CDT RIGHT LUNG CA Case Notes MEDICARE [id number] PER ONLINE CPT 97574 THORACOTOMY 08/31/2020 6:37 AM CDT RIGHT LUNG CA Case Notes MEDICARE [id number] PER ONLINE CPT 91831 VERIFICATION BLOOD GROUP Stat 08/31/2020 5:22 AM CDT Encounter for blood typing PREPARE RED BLOOD CELLS Routine 08/31/2020 12:17 AM CDT PREPARE RED BLOOD CELLS Routine 08/31/2020 12:17 AM CDT documented in this encounter Results * HOLTER MONITOR (09/22/2020 5:21 PM CDT) Narrative Procedure Note Fred Venegas MD - 09/22/2020 5:21 PM CDT [place], [place] [address] Print Color Operator Report CSN: [id number] DATE OF SERVICE: 09/06/2020 FAX A COPY TO: DR. SARBJIT BROOKS EVENT MONITOR ORDERING PHYSICIAN Dr. Sarbjit Brooks. TEST INDICATION Paroxysmal atrial fibrillation. INTERPRETATION 1. The patient was monitored from 09/06 through 09/19/2020. 2. Baseline transmission demonstrates atrial fibrillation, heart rate90. 3. There were no symptomatic transmissions sent. 4. There are 14 autotriggered transmissions demonstrating atrialfibrillation, heart rates ranging from 74 to 110 beats per minute, mostlyin the 80s to 90s range. 5. There was 1 brief strip of sinus rhythm on 09/07/2020 time 20:20, whichagain demonstrates sinus rhythm with PACs. All the other strips areatrial fibrillation. 6. There are no long pauses. MANUEL:MEDQ DID:[id number] Dictated by: Fred Venegas MD, [facility] Fred Venegas MD CARDIAC SERVICES ORD ERABLES [facility] HEART AND VASCULAR CLIA# [id number] [facility], [address] [place] [address] * XR CHEST PA AND LATERAL 2 VW (09/06/2020 4:58 AM CDT) Anatomical Region Laterality Modality Chest Computed Radiogr aphy 09/06/2020 4:58 AM CDT Impressions 09/06/2020 8:51 AM CDT IMPRESSION: Tiny residual right pneumothorax. Right lower lobe infiltrate and effusion. DICTATION LOCATION: [address] Narrative 09/06/2020 8:51 AM CDT XR CHEST PA AND LATERAL 2 VW DATE: 09/06/2020 4:58 AM HISTORY: ,Comment: Post-operative. ?? Encounter for blood typing COMPARISON: 09/05/2020 FINDINGS: Right chest tube has been removed. There is a small right apical pneumothorax. Right lower lobe infiltrate and small effusion persist. Left lungs clear. The heart and mediastinal silhouette are unremarkable. INCIDENTAL FINDINGS: ??None. Procedure Note Fred Smith MD - 09/06/2020 XR CHEST PA AND LATERAL 2 VW DATE: 09/06/2020 4:58 AM HISTORY: ,Comment: Post-operative. Encounter for blood typing COMPARISON: 09/05/2020 FINDINGS: Right chest tube has been removed. There is a small right apical pneumothorax. Right lower lobe infiltrate and small effusion persist. Left lungs clear. The heart and mediastinal silhouette are unremarkable. INCIDENTAL FINDINGS: None. IMPRESSION: Tiny residual right pneumothorax. Right lower lobe infiltrate and effusion. DICTATION LOCATION: [address] Nicole SIMS DIAGNOST[facility] IMAG[facility] O RDERABLES * XR CHEST PA AND LATERAL 2 VW (09/05/2020 5:21 AM CDT) Anatomical Region Laterality Modality Chest Computed Radiogr aphy 09/05/2020 5:22 AM CDT Impressions 09/05/2020 10:33 AM CDT IMPRESSION: 1. Trace right-sided pneumothorax. 2. Suggestion of a right-sided pleural effusion. 3. Mild interstitial prominence within the right lung. Narrative 09/05/2020 10:33 AM CDT XR CHEST PA AND LATERAL 2 VW DATE: 09/05/2020 5:21 AM DICTATION LOCATION: Location [address] [place] [address] HISTORY: Postoperative evaluation. TECHNIQUE: Two views of the chest were obtained. COMPARISON: September 04, 2020 FINDINGS: The right-sided chest tube has been retracted and the side port now projects over the soft tissues of the right chest wall. There is persistent subcutaneous emphysema within the right chest wall. There is a trace right-sided pneumothorax. There is also the suggestion of a right-sided pleural effusion. ??Mild interstitial prominence within the right lung. Left lung is well-expanded and clear. ??The visualized osseous structures demonstrate no acute abnormalities. ??The upper abdomen is unremarkable. ?? Procedure Note Red Stern MD - 09/05/2020 XR CHEST PA AND LATERAL 2 VW DATE: 09/05/2020 5:21 AM DICTATION LOCATION: [address] HISTORY: Postoperative evaluation. TECHNIQUE: Two views of the chest were obtained. COMPARISON: September 04, 2020 FINDINGS: The right-sided chest tube has been retracted and the side port now projects over the soft tissues of the right chest wall. There is persistent subcutaneous emphysema within the right chest wall. There is a trace right-sided pneumothorax. There is also the suggestion of a right-sided pleural effusion. Mild interstitial prominence within the right lung. Left lung is well-expanded and clear. The visualized osseous structures demonstrate no acute abnormalities. The upper abdomen is unremarkable. IMPRESSION: 1. Trace right-sided pneumothorax. 2. Suggestion of a right-sided pleural effusion. 3. Mild interstitial prominence within the right lung. Nicole SIMS DIAGNOSTIC IMAGING O RDERABLES * MAGNESIUM LEVEL (09/04/2020 6:22 AM CDT) Pathologist [facility] MAGNESIUM 2.2 1.6 - 2.4 mg/dL 09/04/2020 7:27 AM CDT [employer] [facility]ORAT[facility] Blood Venipuncture / Unknown 09/04/2020 6:22 AM CDT 09/04/2020 6:52 AM CDT Ashanti Wahl NP CHEMISTRY ORD ERABLES [facility] LABORATORY SERVICES [facility]# [id number] [address] [place], [place] [id number] * (ABNORMAL) BASIC METABOLIC PANEL (09/04/2020 6:22 AM CDT) Pathologist [facility] SODIUM 133(L) 136 - 145 mmol/L 09/04/2020 7:27 AM CDT [facility] LABORATORY SERVICES - . [facility] POTASSIUM 4.3 3.5 - 5.0 mmol/L 09/04/2020 7:27 AM CDT [facility] LABORATORY SERVICES - . [facility] CHLORIDE 100 98 - 107 mmol/L 09/04/2020 7:27 AM CDT [facility] LABORATORY SERVICES - . [facility] CO2 26 22 - 29 mmol/L 09/04/2020 7:27 AM CDT [facility] LABORATORY SERVICES - . [facility] CALCIUM 8.4(L) 8.6 - 10.2 mg/dL 09/04/2020 7:27 AM CDT [facility] LABORATORY SERVICES - . [facility] BUN 16 8 - 23 mg/dL 09/04/2020 7:27 AM CDT [facility] LABORATORY SERVICES - . [facility] CREATININE 0.72 0.51 - 0.95 mg/dL 09/04/2020 7:27 AM T [facility] LABORATORY [facility] Comment:The GFR result is no t clinically significant on patients <18 or >70 years of age. GLUCOSE 113(H) 74 - 99 mg/dL 09/04/2020 7:27 AM T [facility] GFR >60 mL/min/1.7 3 sq meter 09/04/2020 7:27 AM T [facility] Comment: eGFR has not been validated for [...] please refer to the GFR result. GFR, >60 mL/min/1.7 3 sq meter 09/04/2020 7:27 AM T [facility] ANION GAP 7(L) 8 - 16 mmol/L 09/04/2020 7:27 AM T [facility] Blood Venipuncture / Unknown 09/04/2020 6:22 AM CDT 09/04/2020 6:52 AM CDT Ashanti Wahl MEDICAL INTERN CHEMISTRY ORD ERABLES [id number] 5 [facility] [place] [address] * XR CHEST PA OR AP 1 VW (09/04/2020 6:00 AM CDT) Anatomical Region Laterality Modality Chest Computed Radiogr aphy 09/04/2020 6:24 AM CDT Impressions 09/04/2020 8:39 AM CDT IMPRESSION: 1. Persistent right-sided pneumothorax that is unchanged. Narrative 09/04/2020 8:39 AM CDT CHEST SINGLE VIEW DATE: 09/04/2020 6:00 AM DICTATION LOCATION: Location [address] [place] [address] HISTORY: Postoperative evaluation. TECHNIQUE: Single portable view of the chest was obtained. Portable technique limits evaluation. COMPARISON: September 03, 2020. FINDINGS: There is a right-sided chest tube that appears unchanged in position. ??A small pneumothorax persists. Persistent subcutaneous emphysema within the chest wall. ??The overall aeration of the lungs is similar. Cardiac and mediastinal contours are unchanged. ??The visualized osseous structures demonstrate no acute abnormalities. ??The upper abdomen is unremarkable. Procedure Note Red Stern MD - 09/04/2020 CHEST SINGLE VIEW DATE: 09/04/2020 6:00 AM DICTATION LOCATION: Location [address] [place] [address] HISTORY: Postoperative evaluation. TECHNIQUE: Single portable view of the chest was obtained. Portable technique limits evaluation. COMPARISON: September 03, 2020. FINDINGS: There is a right-sided chest tube that appears unchanged in position. A small pneumothorax persists. Persistent subcutaneous emphysema within the chest wall. The overall aeration of the lungs is similar. Cardiac and mediastinal contours are unchanged. The visualized osseous structures demonstrate no acute abnormalities. The upper abdomen is unremarkable. IMPRESSION: 1. Persistent right-sided pneumothorax that is unchanged. Ashanti Wahl NP DIAGNOSTIC IM AGING ORDERABLES * MAGNESIUM LEVEL (09/03/2020 5:42 AM CDT) MAGNESIUM 2.2 1.6 - 2.4 mg/dL 09/03/2020 7:15 AM CDT [facility] [employer] [facility] Blood Venipuncture / Unknown 09/03/2020 5:42 AM CDT 09/03/2020 6:39 AM CDT Ashanti Wahl NP CHEMISTRY ORD ERABLES [facility] LABORATORY [facility] CLIA# [id number] [address] [place] [address] * (ABNORMAL) BASIC METABOLIC PANEL (09/03/2020 5:42 AM CDT) [facility] Signature SODIUM 130(L) 136 - 145 mmol/L 09/03/2020 7:15 AM [facility] [employer] LABORATORY SERVICES - [facility] POTASSIUM 4.4 3.5 - 5.0 mmol/L 09/03/2020 7:15 AM T [employer] LABORATORY SERVICES - [facility] CHLORIDE 95(L) 98 - 107 mmol/L 09/03/2020 7:15 AM T [employer] LABORATORY SERVICES - . [facility] CO2 26 22 - 29 mmol/L 09/03/2020 7:15 AM T [employer] LABORATORY SERVICES - [facility] CALCIUM 8.4(L) 8.6 - 10.2 mg/dL 09/03/2020 7:15 AM [employer] LABORATORY SERVICES - [facility] BUN 17 8 - 23 mg/dL 09/03/2020 7:15 AM [employer] LABORATORY SERVICES - [facility] CREATININE 0.81 0.51 - 0.95 mg/dL 09/03/2020 7:15 AM [employer] LABORATORY SERVICES [facility] Comment:The GFR result is no t clinically significant on patients <18 or >70 years of age. GLUCOSE 100(H) 74 - 99 mg/dL 09/03/2020 7:15 AM [employer] SERVICES [facility] GFR >60 mL/min/1.7 3 sq meter 09/03/2020 7:15 AM [employer] [facility] Comment: eGFR has not been validated [...] please refer to the GFR result. GFR, >60 mL/min/1.7 3 sq meter 09/03/2020 7:15 AM [employer] LABORATORY SERVICES [facility] ANION GAP 9 8 - 16 mmol/L 09/03/2020 7:15 AM CDT [facility] LABORATORY SERVICES [facility] Blood Venipuncture / Unknown 09/03/2020 5:42 AM CDT 09/03/2020 6:39 AM CDT Ashanti Landrumshen MEDICAL INTERN CHEMISTRY ORD ERABLES [facility] LABORATORY SERVICES [facility] CLIA# [id number] [address] [place] [address] * XR CHEST PA AND LATERAL 2 VW (09/03/2020 5:30 AM CDT) Anatomical Region Laterality Modality Chest Computed Radiogr aphy 09/03/2020 5:31 AM CDT Impressions 09/03/2020 8:01 AM CDT IMPRESSION: Interval removal of one of the right chest tubes, with the remaining chest tube retracted over the interval, side port projecting outside of the thoracic cavity. The small right pneumothorax is again seen a new subpulmonic component. Discussed with the patient's nurse Luciana at the time of interpretation. Bibasilar predominant opacities may be superimposed atelectasis and consolidation slightly increased on the right from previous. DICTATION LOCATION: Location 1 - [facility] Narrative 09/03/2020 8:01 AM CDT CHEST 2 VIEWS DATE: 09/03/2020 5:30 AM HISTORY: ??Post-Operative. . Encounter for blood typing. COMPARISON: 09/02/2020 FINDINGS: Interval removal of one of the thoracic drains. The residual drain projects over the lower right lung and appears retracted over the interval with the side port projecting outside the thoracic cavity. There is redemonstration of chest wall emphysema, with a new small amount along the lower right lateral chest wall. A small right pneumothorax is seen with subpulmonic component. The subpulmonic component appears new. No left pneumothorax is seen. Opacity at the right hilum with postoperative changes again noted. Bibasilar predominant opacities may be superimposed atelectasis and consolidation slightly increased on the right from previous. Probable small right effusion. No definite left effusion. No other acute interval change. Procedure Note Mendel Duarte MD - 09/03/2020 CHEST 2 VIEWS DATE: 09/03/2020 5:30 AM HISTORY: Post-Operative. . Encounter for blood typing. COMPARISON: 09/02/2020 FINDINGS: Interval removal of one of the thoracic drains. The residual drain projects over the lower right lung and appears retracted over the interval with the side port projecting outside the thoracic cavity. There is redemonstration of chest wall emphysema, with a new small amount along the lower right lateral chest wall. A small right pneumothorax is seen with subpulmonic component. The subpulmonic component appears new. No left pneumothorax is seen. Opacity at the right hilum with postoperative changes again noted. Bibasilar predominant opacities may be superimposed atelectasis and consolidation slightly increased on the right from previous. Probable small right effusion. No definite left effusion. No other acute interval change. IMPRESSION: Interval removal of one of the right chest tubes, with the remaining chest tube retracted over the interval, side port projecting outside of the thoracic cavity. The small right pneumothorax is again seen a new subpulmonic component. Discussed with the patient's nurse Luciana at the time of interpretation. Bibasilar predominant opacities may be superimposed atelectasis and consolidation slightly increased on the right from previous. DICTATION LOCATION: Location 1 - [facility] Ashanti Wahl NP DIAGNOSTIC IM AGING ORDERABLES * MAGNESIUM LEVEL (09/02/2020 7:40 AM CDT) MAGNESIUM 2.1 1.6 - 2.4 mg/dL 09/02/2020 10:03 AM CDT [facility] [employer] [facility] Blood Venipuncture / Unknown 09/02/2020 7:40 AM CDT 09/02/2020 8:06 AM CDT Nicole SIMS CHEMISTRY ORDERABLES [facility] LABORATORY [facility] CLIA# [id number] [address] [facility] [place] [address] * (ABNORMAL) BASIC METABOLIC PANEL (09/02/2020 7:40 AM CDT) SODIUM 132(L) 136 - 145 mmol/L 09/02/2020 10:03 AM [facility] [employer] SERVICES - [facility] POTASSIUM 3.7 3.5 - 5.0 mmol/L 09/02/2020 10:03 AM [employer] SERVICES - [facility] CHLORIDE 97(L) 98 - 107 mmol/L 09/02/2020 10:03 AM [employer] SERVICES - . [facility] CO2 26 22 - 29 mmol/L 09/02/2020 10:03 AM [employer] SERVICES - . [facility] CALCIUM 8.3(L) 8.6 - 10.2 mg/dL 09/02/2020 10:03 AM [employer] SERVICES [facility] BUN 20 8 - 23 mg/dL 09/02/2020 10:03 AM [employer] SERVICES [facility] CREATININE 0.99(H) 0.51 - 0.95 mg/dL 09/02/2020 10:03 AM [employer] SERVICES [facility] Comment:The GFR result is no t clinically significant on patients <18 or >70 years of age. GLUCOSE 99 74 - 99 mg/dL 09/02/2020 10:03 AM [employer] [facility] GFR 55 mL/min/1.7 3 sq meter 09/02/2020 10:03 AM [employer] [facility] Comment: eGFR has not been validated [...] please refer to the GFR result. GFR, >60 mL/min/1.7 3 sq meter 09/02/2020 10:03 AM [employer] [facility] ANION GAP 9 8 - 16 mmol/L 09/02/2020 10:03 AM [employer] [facility] Blood Venipuncture / Unknown 09/02/2020 7:40 AM CDT 09/02/2020 8:06 AM CDT Ashanti Louise Maryuri MEDICAL INTERN CHEMISTRY ORD ERABLES [facility] LABORATORY [facility] CLIA# [id number] [address] [facility] [place] [address] * XR CHEST PA OR AP 1 VW (09/02/2020 5:35 AM CDT) Anatomical Region Laterality Modality Chest Computed Radiogr aphy 09/02/2020 6:08 AM CDT Impressions 09/02/2020 7:55 AM CDT IMPRESSION: 1. Stable appearance of the chest since 09/01/2020 with small right apical pneumothorax and right-sided pleural effusion with associated compressive atelectasis/infiltrate. 2. Fullness of the right hilum grossly stable. DICTATION LOCATION: Location 1 - [facility] Narrative 09/02/2020 7:55 AM CDT CHEST SINGLE VIEW DATE: 09/02/2020 5:35 AM HISTORY: Post-Operative. 75-year-old female; postop COMPARISON: 09/01/2020 FINDINGS: Heart size is stable. The pulmonary vasculature is within normal limits. There is fullness of the right hilum with postsurgical changes. Left basilar subsegmental atelectasis/infiltrate is unchanged. There are two right chest tubes. Small right apical pneumothorax is unchanged. Subcutaneous emphysema is stable. Small right pleural effusion with associated compressive atelectasis or infiltrate. Procedure Note Carl Dunn MD - 09/02/2020 CHEST SINGLE VIEW DATE: 09/02/2020 5:35 AM HISTORY: Post-Operative. 75-year-old female; postop COMPARISON: 09/01/2020 FINDINGS: Heart size is stable. The pulmonary vasculature is within normal limits. There is fullness of the right hilum with postsurgical changes. Left basilar subsegmental atelectasis/infiltrate is unchanged. There are two right chest tubes. Small right apical pneumothorax is unchanged. Subcutaneous emphysema is stable. Small right pleural effusion with associated compressive atelectasis or infiltrate. IMPRESSION: 1. Stable appearance of the chest since 09/01/2020 with small right apical pneumothorax and right-sided pleural effusion with associated compressive atelectasis/infiltrate. 2. Fullness of the right hilum grossly stable. DICTATION LOCATION: Location 1 - [facility] Ashanti Wahl NP DIAGNOSTIC IM AGING ORDERABLES * EKG 12-LEAD (09/02/2020 12:28 AM CDT) 09/02/2020 12:2 8 AM CDT Narrative INTERFACE SYSTEM - 09/02/2020 8:55 AM CDT ? Stationary ECG Study ? [facility] ? Test Date: ?09/02/2020 12:28 AM Pat Name: ? ZEE CELIS ? Department: ?? 51 ?Room: ? 4075 1 Gender: ? F ?Melon Packer: ?? LANGD2 : ?1945 ? Requested By: EDINSON CORREA Order Number: [id number] ?Reading MD: ?? Fred Venegas ? Measurements Intervals ?[place] ? Rate: ? 105 ?P: ? DE: ?QRS: ?-3 QRSD: ? 85 ? T: ?27 QT: ? 326 ? QTc: ?431 ? Interpretive Statements ? Atrial fibrillation 105- new from nsr 08/18/20 NSSTT Electronically Signed On 09-02-2020 8:55:32 CDT by Fred Venegas Procedure Note Fred Venegas MD - 09/02/2020 Stationary ECG Study [facility] Test Date: 09/02/2020 12:28 AM Pat Name: ZEE CELIS Department: 51 Room: [facility] Gender: F Melon Packer: WINNIE : 1945 Requested By: EDINSON CORREA Order Number: [id number] Reading MD: Fred Venegas Measurements Intervals [place] Rate: 105 P: DE: QRS: -3 QRSD: 85 T: 27 QT: 326 QTc: 431 Interpretive Statements Atrial fibrillation 105- new from nsr 08/18/20 NSSTT Electronically Signed On 09-02-2020 8:55:32 CDT by Fred Venegas Edinson Correa MD ECG ORDERABLES INTERFACE SYSTEM Refer to clinic/hospital department * (ABNORMAL) MANUAL DIFFERENTIAL (09/01/2020 5:57 AM CDT) SEGMENTED NEUTROPHILS 67 % 09/01/2020 7:56 AM CDT [facility] LABORATORY SERVICES - . [facility] LYMPHOCYTES RELATIVE 6(L) 43 - 53 % 09/01/2020 7:56 AM CDT [facility] LABORATORY SERVICES - . [facility] ATYPICAL LYMPHOCYTES RELATIVE 4 0 - 5 % 09/01/2020 7:56 AM CDT [facility] LABORATORY SERVICES - . [facility] MONOCYTES RELATIVE 24 % 09/01/2020 7:56 AM CDT [facility] LABORATORY [facility] - . [facility] NEUTROPHILS ABSOLUTE COUNT 8.67(H) 1.90 - 7.00 K/uL 09/01/2020 7:56 AM CDT [facility] LABORATORY SERVICES - . [facility] LYMPHOCYTES ABSOLUTE 0.74 0.70 - 4.50 K/uL 09/01/2020 7:56 AM CDT [facility] LABORATORY SERVICES - . [facility] MONOCYTES ABSOLUTE 3.10(H) 0.10 - 1.30 K/uL 09/01/2020 7:56 AM CDT [facility] LABORATORY SERVICES - . [facility] TOTAL CELLS COUNTED IN DIFF 105 09/01/2020 7:56 AM CDT [facility] LABORATORY SERVICES - . [facility] RBC MORPHOLOGY abnormal 09/01/2020 7:56 AM CDT [facility] LABORATORY SERVICES - . [facility] PLATELET EST. Consistent w Count 09/01/2020 7:56 AM T [facility] LABORATORY SERVICES - . [facility] ANISOCYTOSIS 1+ /hpf 09/01/2020 7:56 AM [facility] LABORATORY SERVICES - [facility] Blood Venipuncture / Unknown 09/01/2020 5:57 AM CDT 09/01/2020 6:01 AM CDT Arash SIMS HEMATOLOGY ORDERABLE S COM [facility] LABORATORY SERVICES - [facility] CLIA# [id number] [address] [facility] [place] [address] * (ABNORMAL) BASIC METABOLIC PANEL (09/01/2020 5:57 AM CDT) SODIUM 133(L) 136 - 145 mmol/L 09/01/2020 6:44 AM [facility] [employer] LABORATORY SERVICES - [facility] POTASSIUM 3.9 3.5 - 5.0 mmol/L 09/01/2020 6:44 AM [facility] [employer] LABORATORY SERVICES - [facility] CHLORIDE 98 98 - 107 mmol/L 09/01/2020 6:44 AM [facility] [employer] LABORATORY SERVICES - . [place] CO2 26 22 - 29 mmol/L 09/01/2020 6:44 AM [facility] [employer] LABORATORY SERVICES - . [facility] CALCIUM 8.4(L) 8.6 - 10.2 mg/dL 09/01/2020 6:44 AM [facility] [employer] LABORATORY SERVICES - . [place] BUN 25(H) 8 - 23 mg/dL 09/01/2020 6:44 AM [facility] [employer] LABORATORY SERVICES - . [facility] CREATININE 1.06(H) 0.51 - 0.95 mg/dL 09/01/2020 6:44 AM [facility] [employer] LABORATORY SERVICES - . [facility] Comment:The GFR result is no t clinically significant on patients <18 or >70 years of age. GLUCOSE 103(H) 74 - 99 mg/dL 09/01/2020 6:44 AM [facility] [employer] LABORATORY SERVICES - . [facility] GFR 50 mL/min/1.7 3 sq meter 09/01/2020 6:44 AM CDT [facility] SERVICES - [facility] Comment: eGFR has not been validated [...] please refer to the GFR result. GFR, >60 mL/min/1.7 3 sq meter 09/01/2020 6:44 AM CDT [facility] LABORATORY SERVICES [facility] ANION GAP 9 8 - 16 mmol/L 09/01/2020 6:44 AM T [employer] [facility] Blood Venipuncture / Unknown 09/01/2020 5:57 AM CDT 09/01/2020 6:01 AM CDT Arash SIMS CHEMISTRY ORDERABLES [employer] [facility]# [id number] [address] [place] [address] * (ABNORMAL) CBC WITH DIFFERENTIAL (09/01/2020 5:57 AM CDT) WBC 13.0(H) 4.0 - 9.8 K/uL 09/01/2020 6:14 AM CDT [facility] LABORATORY SERVICES [facility] RBC 3.13(L) 3.90 - 4.90 M/uL 09/01/2020 6:14 AM T [employer] [facility] HEMOGLOBIN 9.6(L) 11.8 - 14.8 g/dL 09/01/2020 6:14 AM CDT [employer] [facility] HEMATOCRIT 29.3(L) 35.5 - 44.0 % 09/01/2020 6:14 AM CDT [employer] [facility] MCV 93.6 82.0 - 99.0 fL 09/01/2020 6:14 AM CDT [facility] LABORATORY SERVICES - [facility] MCH 30.7 27.2 - 32.6 pg 09/01/2020 6:14 AM CDT [facility] LABORATORY SERVICES - [facility] MCHC 32.8 31.5 - 35.5 g/dL 09/01/2020 6:14 AM CDT [facility] LABORATORY SERVICES - [facility] RDW 13.2 11.5 - 14.5 % 09/01/2020 6:14 AM CDT [facility] LABORATORY SERVICES - [facility] RDW-STDEV 44.8 37.1 - 48.7 fL 09/01/2020 6:14 AM CDT [facility] LABORATORY SERVICES - . [facility] PLATELETS 166 140 - 350 K/uL 09/01/2020 6:14 AM CDT [facility] LABORATORY SERVICES - . [facility] MPV 10.9 9.3 - 12.4 fL 09/01/2020 6:14 AM CDT [facility] LABORATORY [facility] - [facility] Blood Venipuncture / Unknown 09/01/2020 5:57 AM CDT 09/01/2020 6:01 AM CDT Arash SIMS HEMATOLOGY ORDERABLE S [id number] [address] [facility] [place] [address] * XR CHEST PA OR AP 1 VW (09/01/2020 5:30 AM CDT) Anatomical Region Laterality Modality Chest Computed Radiogr aphy 09/01/2020 5:58 AM CDT Impressions 09/01/2020 7:34 AM CDT FINDINGS AND IMPRESSION: Right-sided chest tubes ending in the upper chest and medial right base as before. Small right apical pneumothorax appears unchanged. Small right subcutaneous emphysema. There is interval decreased bilateral lung expansion. Interval increased subsegmental left basilar atelectasis/infiltrate. Cardiomediastinal silhouette size is stable. Postoperative changes in the right hilum. DICTATION LOCATION: Location 9 - [facility] Narrative 09/01/2020 7:34 AM CDT CHEST, FRONTAL VIEW DATE: 09/01/2020 5:30 AM HISTORY: ??Post-Operative COMPARISON: Chest x-ray on 08/31/2020 Procedure Note Dequan Olvera MD - 09/01/2020 CHEST, FRONTAL VIEW DATE: 09/01/2020 5:30 AM HISTORY: Post-Operative COMPARISON: Chest x-ray on 08/31/2020 FINDINGS AND IMPRESSION: Right-sided chest tubes ending in the upper chest and medial right base as before. Small right apical pneumothorax appears unchanged. Small right subcutaneous emphysema. There is interval decreased bilateral lung expansion. Interval increased subsegmental left basilar atelectasis/infiltrate. Cardiomediastinal silhouette size is stable. Postoperative changes in the right hilum. DICTATION LOCATION: Location [address] [place] [address] Arash SIMS DIAGNOSTIC IMAGING O RDERABLES * (ABNORMAL) POC GLUCOSE (08/31/2020 7:24 PM CDT) [facility] Signature GLUCOSE POC 141(H) 74 - 99 mg/dL 08/31/2020 7:24 PM CDT [facility] LABORATORY [facility] VP OF MARKETING NAME POC JONATHAN GUZMAN 08/31/2020 7:24 PM CDT [facility] LABORATORY [facility] Blood, whole 08/31/2020 7:24 PM CDT 08/31/2020 7:32 PM CDT Edinson Correa MD POINT OF CARE TESTIN G [id number] [address] [place] [address] * XR CHEST PA OR AP 1 VW (08/31/2020 10:15 AM CDT) Anatomical Region Laterality Modality Chest Computed Radiogr aphy 08/31/2020 10:1 5 AM CDT Impressions 08/31/2020 12:47 PM CDT IMPRESSION: 1. Small right-sided pneumothorax and moderate subcutaneous emphysema. Findings conveyed to clinical service by senior medical technologist per protocol. DICTATION LOCATION: Location 1 - [facility] Narrative 08/31/2020 12:47 PM CDT CHEST SINGLE VIEW DATE: 08/31/2020 10:15 AM HISTORY: ??75-year-old female postop. COMPARISON: 08/18/2020. FINDINGS: External cardiac monitoring leads overlie the patient's chest. There are two right chest tubes. Heart size is mildly prominent. Aorta is atherosclerotic. There is a small left pleural effusion with associated compressive atelectasis or infiltrate. There is some fullness of the right hilum. There is a small right pneumothorax. No mediastinal shift. Moderate subcutaneous emphysema noted on the right side. Procedure Note Carl Dunn MD - 08/31/2020 CHEST SINGLE VIEW DATE: 08/31/2020 10:15 AM HISTORY: 75-year-old female postop. COMPARISON: 08/18/2020. FINDINGS: External cardiac monitoring leads overlie the patient's chest. There are two right chest tubes. Heart size is mildly prominent. Aorta is atherosclerotic. There is a small left pleural effusion with associated compressive atelectasis or infiltrate. There is some fullness of the right hilum. There is a small right pneumothorax. No mediastinal shift. Moderate subcutaneous emphysema noted on the right side. IMPRESSION: 1. Small right-sided pneumothorax and moderate subcutaneous emphysema. Findings conveyed to clinical service by senior medical technologist per protocol. DICTATION LOCATION: Location 1 - [facility] Edinson Correa MD DIAGNOSTIC IMAGING O RDERABLES * PATHOLOGY (08/31/2020 7:58 AM CDT) CASE REPORT Surgical Pathology Report ? Case: [id number] ? Authorizing Provider: ??Edinson Correa MD ?Collected: ? 08/31/2020 07:58 AM ? Ordering Location: ? [facility] [address] ?Received: ?08/31/2020 02:16 PM ? [facility] Operating Room ? Pathologist: ? Hartland, Erickson R, DO ? Specimens: ?? A) - Lymph node, Level 10 ? B) - Lymph node, Level 11 ? C) - Lung, RUL ? D) - Lymph node, Level 4 ? E) - Lymph node, Level 7 ? F) - Lymph node, Level 8 ? 09/03/2020 3:43 PM CDT [employer] [facility] FINAL DIAGNOSIS Lymph node, level 10, biopsy: -Three anthracotic lymph node fragments, no metastatic carcinoma identified (0/3). Lymph node, level 11, biopsy: -Two anthracotic lymph node fragments, no metastatic carcinoma identified (0/2). Lung, right upper lobe, lobectomy: -Adenocarcinoma, acinar predominant, with the following features: 1. Histologic subtypes: Acinar (70%), papillary (20%), lepidic (10%). 2. Tumor size: 3.6 cm (invasive component-3.2 cm). 3. Visceral pleura invasion: Not identified. 4. Lymphovascular invasion: Not identified. 5. Margins: Uninvolved by carcinoma. 6. Pathologic stage: pT2a, pN0. -Background lung with mild chronic inflammation and foci of subpleural fibrosis. Lymph node, level 4, biopsy: -Six reactive lymph nodes, no metastatic carcinoma identified (0/6). Lymph node, level 7, biopsy: -Anthracotic lymph node, no metastatic carcinoma identified (0/1). Lymph node, level 8, biopsy: -Anthracotic lymph node, no metastatic carcinoma identified (0/1). 09/03/2020 3:43 PM CDT [employer] [facility] S DESCRIPTION Received are 6 containers labeled Zee Celis . Received in the first container additionally labeled level 10 lymph node are 3 partially disrupted pieces of dark rouse andrés tissue ranging from 1.3 to 2.4 cm in greatest dimension. Each piece is bisected and entirely submitted in cassettes A1 through A3. Received in the second container labeled level 11 lymph node are 2 pieces of red-rouse andrés tissue measuring 0.9 and 1.0 cm in greatest dimension. The larger piece is bisected. The smaller piece is inked blue. The specimen is entirely submitted in cassette B1. Received in the third container labeled right upper lobe lung is a 123 g, 11.6 x 10.7 x 4.0 cm lobe of lung. The pleural surface is red-javed with minimal, diffuse anthracotic pigment. There is a 2.4 x 1.4 cm retracted area on the surface opposite the hilum. This area is marked with blue ink. An 8.0 cm long branching staple line is present inferior to the hilum of the lobe. It is removed and the underlying parenchyma is inked green. The bronchial is branching at the resection margin. The specimen is inflated with formalin prior to dissection. Sectioning demonstrates a 3.6 x 3.4 x 2.3 cm ill-defined, indurated javed mass. The lesion abuts the blue inked pleural surface and comes to within 2.3 cm from the bronchial margin and 3.8 cm from the green inked staple line. The remainder of the parenchyma is red-javed and spongy with no additional distinct lesions. No lymph nodes are identified. [employer] sections are submitted as follows: C1-vascular margins, en face; C2-bronchial margin, en face; K8-F9-eotctdtk of mass; C9-green inked margin closest to mass, perpendicular; C10-C 11-uninvolved lung parenchyma. Received in the fifth container labeled level 4 lymph node is a 0.8 cm piece of dark rouse andrés tissue and a separate 3.0 x 1.5 x 0.4 cm piece of yellow lobulated fatty tissue. 6 disrupted pieces of dark rouse possible andrés tissue are present within the adipose tissue and range from 0.3 to 0.9 cm in greatest dimension. The lymph nodes are entirely submitted as follows: D1-5 potential lymph nodes; D2-2 lymph nodes bisected. Received in the fifth container labeled level 7 lymph nodes is a 2.1 x 1.8 x 0.6 cm focally disrupted red-javed to dark rouse lymph node. It is bisected and entirely submitted in cassettes E1 and E2. Received in the sixth container labeled level 8 lymph node is a 0.5 x 0.4 x 0.4 cm piece of dark rouse andrés tissue. It is bisected and entirely submitted in cassette F1. 09/03/2020 3:43 PM [facility] [employer] [facility] MICROSCOPIC DESCRIPTION The slides are labeled [id number] and Zee Celis. Sections of the level 10 lymph node show 3 fragments of anthracotic lymph node tissue with reactive changes. No metastatic carcinoma is identified. Sections of the level 11 lymph node show 2 fragments of anthracotic lymph node tissue with reactive changes. Metastatic carcinoma is identified. Sections of the right upper lobe lung show an invasive adenocarcinoma corresponding to the mass noted in the gross description. The tumor is acinar predominant morphology (70%) with smaller proportions of papillary (20%) and lepidic (10%) patterns. Within the tumor bed there are prominent areas of fibrosis and mild chronic inflammation is noted. Significant fibrosis of the subpleural soft tissue was noted. VBG stains performed on 2 tumor blocks demonstrate intact visceral pleura elastic layer is not definitively penetrated tumor. No definite lymphovascular space invasion is identified. The bronchial, vascular, and parenchymal margins are free of tumor. The uninvolved lung tissue is remarkable for mild chronic inflammation and foci of subpleural fibrosis. No additional tumor foci are identified. Sections of the level 4 lymph node show 6 benign lymph nodes with reactive changes. No metastatic carcinoma is identified. Sections of the level 7 lymph node show a single anthracotic lymph node with reactive changes. No metastatic carcinoma is identified. Sections of the level 8 lymph node show a single anthracotic lymph node with reactive changes. No metastatic carcinoma is identified. 09/03/2020 3:43 PM [facility] [employer] [facility] OPERATIVE PROCEDURE 1: THORACOTOMY 2: LUNG LOBECTOMY 09/03/2020 3:43 PM [facility] [employer] [facility] CLINICAL INFORMATION RIGHT LUNG CA 09/03/2020 3:43 PM [facility] [employer] [facility] SYNOPTIC REPORT LUNG ??(LUNG: RESECTION - All Specimens) 8th Edition - Protocol posted: 08/13/2019 SPECIMEN ?? Procedure: ?Lobectomy ?? Specimen Laterality: ?Right TUMOR ?? Tumor Site: ?Upper lobe of lung ?? Histologic Type: ?Invasive adenocarcinoma, acinar predominant ? Other Subtypes Present: ?acinar (70%), papillary (20%), lepidic (10%) ?? Histologic Grade: ?G1: Well differentiated ?? Tumor Size: ? Total Tumor Size (size of entire tumor): ?Greatest Dimension (Centimeters): 3.6 cm ? Size of Invasive Component: ?Greatest Dimension (Centimeters): 3.2 cm ? Percentage of Total Tumor Size: ?90 % ?? Tumor Focality: ?Single focus ?? Visceral Pleura Invasion: ?Not identified ?? Direct Invasion of Adjacent Structures: ?No adjacent structures present ?? Treatment Effect: ?No known presurgical therapy ?? Lymphovascular Invasion: ?Not identified MARGINS ?? Margins: ?All margins are uninvolved by tumor ? Margins Examined: ?Bronchial ? Margins Examined: ?Vascular ? Margins Examined: ?Parenchymal ? Distance of Invasive Carcinoma from Closest Margin (Centimeters): ?2.3 cm ? Closest Margin: ?Bronchial LYMPH NODES ?? Number of Lymph Nodes Involved: ?0 ?? Number of Lymph Nodes Examined: ?13 ? Andrés Stations Examined: ?4R: Lower paratracheal ? Andrés Stations Examined: ?8R: Para-esophageal (below rosanna) ? Andrés Stations Examined: ?10R: Hilar ? Andrés Stations Examined: ?11R: Interlobar ? Andrés Stations Examined: ?12R: Lobar ? Andrés Stations Examined: ?7: Subcarinal PATHOLOGIC STAGE CLASSIFICATION (pTNM, AJCC 8th Edition) ?? Primary Tumor (pT): ?pT2a ?? Regional Lymph Nodes (pN): ?pN0 09/03/2020 3:43 PM CDT [facility] [employer] [facility] COMMENT Special stain and/or immunohistochemical results are interpreted with controls that demonstrate appropriate staining reactions. Note on use of immunocytochemistry reagents: This test was developed and its performance characteristics determined by [facility] Department of Laboratory Medicine. It has not been cleared or approved by the U.S. Food and Drug Administration. The FDA has determined that such clearance or approval is not necessary. The test is used for clinical purposes. It should not be regarded as investigational or for research. This laboratory is certified to perform high complexity testing. Cases may have been signed out in part or completely in the following laboratories: [facility], CLIA #[id number] [address] [place] [address] [facility], CLIA #[id number] [address] [place] [address] [facility], CLIA #[id number] [place] [address]. 09/03/2020 3:43 PM CDT [facility] Tissue ENTIRE LYMPH NODE / Unknown Collection / Unknown 08/31/2020 7:58 AM CDT 08/31/2020 2:16 PM CDT Tissue specimen (specimen) ENTIRE LYMPH NODE / Unknown 08/31/2020 8:10 AM CDT 08/31/2020 2:16 PM CDT Tissue specimen (specimen) (Lung, RUL) 08/31/2020 8:20 AM CDT 08/31/2020 2:16 PM CDT Tissue specimen (specimen) ENTIRE LYMPH NODE / Unknown 08/31/2020 8:21 AM CDT 08/31/2020 2:16 PM CDT Tissue specimen (specimen) ENTIRE LYMPH NODE / Unknown 08/31/2020 8:30 AM CDT 08/31/2020 2:16 PM CDT Tissue specimen (specimen) ENTIRE LYMPH NODE / Unknown 08/31/2020 8:31 AM CDT 08/31/2020 2:16 PM CDT Edinson Correa MD PATHOLOGY/CYTOLOGY O RDERABLES [facility] CLIA# [id number] [address] [place] [address] * POC LACTIC ACID (08/31/2020 7:31 AM CDT) LACTIC ACID POC 0.9 <=2.0 mmol/L 08/31/2020 7:31 AM CDT [facility] LABORATORY SERVICES - [facility] SPECIMEN SOURCE, GASES POC Arterial 08/31/2020 7:31 AM CDT [facility]ORATORY SERVICES - [facility] COMMENT, GASES POC RN/MD NOTIFIED 08/31/2020 7:31 AM CDT [facility] LABORATORY SERVICES - [facility] VP OF MARKETING NAME POC JOSUE ESQUIVEL 08/31/2020 7:31 AM CDT [facility]ORATORY SERVICES - [facility] Blood 08/31/2020 7:31 AM CDT 08/31/2020 7:32 AM CDT Edinson Correa MD POINT OF CARE TESTIN G Performing Organization Address City/State/[facility] Co de Phone Number [facility] [employer] [facility]# [id number] [address] [place] [address] * (ABNORMAL) BLOOD GAS,(INCL. H+H, LYTES, GLUC) (08/31/2020 7:31 AM CDT) PH BLOOD POC 7.46(H) 7.35 - 7.45 08/31/2020 7:31 AM CDT [facility] LABORATORY SERVICES [facility] PCO2 POC 37 35 - 48 mm Hg 08/31/2020 7:31 AM CDT [facility]ORAT[facility] SERVICES [facility] PO2 POC 503(H) 83 - 108 mm Hg 08/31/2020 7:31 AM CDT [facility]ORAT[facility] SERVICES [facility] TCO2 (CALC) POC 27(H) 19 - 24 mmol/L 08/31/2020 7:31 AM T [facility] LABORATORY SERVICES [facility] HCO3 (CALC) POC 26 22 - 26 mmol/L 08/31/2020 7:31 AM CDT [facility] LABORATORY SERVICES [facility] O2 SATURATION POC 100(H) 94 - 98 % 08/31/2020 7:31 AM CDT [facility]ORATORY SERVICES [facility] BASE EXCESS POC 2 -2 - 3 mmol/L 08/31/2020 7:31 AM [facility] LABORATORY SERVICES - [facility] HEMOGLOBIN POC 10.2(L) 11.8 - 14.8 g/dL 08/31/2020 7:31 AM [facility] LABORATORY SERVICES - [facility] HEMATOCRIT POC 31(L) 35 - 44 % 08/31/2020 7:31 AM [facility] LABORATORY SERVICES - [facility] Comment:Estimated Value GLUCOSE POC 109(H) 74 - 99 mg/dL 08/31/2020 7:31 AM [facility] LABORATORY [facility] - [facility] SODIUM POC 136 135 - 145 mmol/L 08/31/2020 7:31 AM [facility] LABORATORY [facility] POTASSIUM POC 3.2(L) 3.5 - 4.9 mmol/L 08/31/2020 7:31 AM [facility] LABORATORY [facility] CALCIUM IONIZED POC 4.7(L) 4.8 - 5.2 mg/dL 08/31/2020 7:31 AM [facility] LABORATORY [facility] PH TEMP CORRECT 7.46(H) 7.35 - 7.45 08/31/2020 7:31 AM [facility] LABORATORY [facility] - [facility] PCO2 TEMP CORRECT 37 35 - 48 mm Hg 08/31/2020 7:31 AM [facility]ORATORY [facility] - [facility] PO2 TEMP CORRECT 503(H) 83 - 108 mm Hg 08/31/2020 7:31 AM [facility] LABORATORY [facility] - [facility] SPECIMEN SOURCE, GASES POC Arterial 08/31/2020 7:31 AM [facility] LABORATORY [facility] PATIENT'S TEMPERATURE POC 37.0 08/31/2020 7:31 AM [facility]OR[facility] COMMENT, GASES POC RN/MD NOTIFIED 08/31/2020 7:31 AM [facility]OR[facility] - [facility] VP OF MARKETING NAME POC SIERRA JOSUE 08/31/2020 7:31 AM [facility]ORAT[facility] Blood, arterial 08/31/2020 7 :31 AM CDT 08/31/2020 7:32 AM CDT Edinson Correa MD ABG ORDERABLES [facility] LABORATORY SERVICES - [facility]# [id number] [address] [place] [address] * VERIFICATION BLOOD GROUP (08/31/2020 5:22 AM CDT) ABO GROUP O 08/31/2020 6:05 AM CDT [facility] LABORATORY SERVICES -- .[facility] RH (D) TYPE Positive 08/31/2020 6:05 AM CDT [facility] LABORATORY SERVICES -- .[facility] Blood Venipuncture / Unknown 08/31/2020 5:22 AM CDT 08/31/2020 5:27 AM CDT Maira Whitmore MD BLOOD BANK JAMES DIANA Performing Organization Address [facility]/ZIP Co de Phone Number [facility] LABORATORY SERVICES -- [facility]# [id number] [address] [place] [address] * PREPARE RED BLOOD CELLS (08/31/2020 12:17 AM CDT) COMPONENT TYPE [id number] [facility] LABORATORY SERVICES -- [facility] COMPONENT IDENTIFICATION [id number] [facility] ABO O [facility]ORY SERVICES [facility] RH POS [facility] LAB[facility]ATORY SERVICES -- [facility] COMPONENT STATUS Returned [facility] LABORATORY SERVICES -- [facility] COMPONENT EXPIRATION DATE/TIME [id number] [facility] LABORATORY SERVICES -- [facility] COMPONENT CODING SYSTEM 5[address] [facility] LABORATORY SERVICES -- .[facility] 08/31/2020 12:1 7 AM CDT Edinson Correa MD LAB TRANSFUSION ORDClaudia OLIVEIRAMASON [facility] LABORATORY SERVICES -- [facility] CLIA# [id number] [address] [place] [address] * PREPARE RED BLOOD CELLS (08/31/2020 12:17 AM CDT) COMPONENT TYPE [id number] [facility] LABORATORY SERVICES -- [facility] COMPONENT IDENTIFICATION [id number] [facility] LABORATORY SERVICES -- [facility] ABO O [facility] LAB[facility]ORY SERVICES [facility] RH POS [facility] LABORATORY SERVICES -- [facility] COMPONENT STATUS Returned [facility] SERVICES -- [facility] COMPONENT EXPIRATION DATE/TIME [id number] [facility] LABORATORY SERVICES -- [facility] COMPONENT CODING SYSTEM 5[address] [facility] 08/31/2020 12:1 7 AM CDT Edinson Correa MD LAB TRANSFUSION ORDClaudia DIANA [facility] -- [facility] CLIA# [id number] 5 [facility] [place]U [place] [address] documented in this encounter Visit Diagnoses Diagnosis Encounter for blood typing- Primary 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 New onset atrial fibrillation Atrial fibrillation Paroxysmal atrial fibrillation- Primary Atrial fibrillation Paroxysmal A-fib Atrial fibrillation Paroxysmal A-fib Atrial fibrillation documented in this encounter Administered Medications Inactive Administered Medications - up to 3 most recent administrations Medication Order MAR Action Action Date Dose Rate Site acetaminophen (TYLENOL) tablet 650 mg 650 mg, Oral, EVERY 6 HOURS, First dose on Sun08/31/20 at 1200, Until Discontinued, Routine Given 09/06/2020 5:52 AM CDT 650 mg Given 09/06/2020 12:34 AM CDT 650 mg Given 09/05/2020 5:24 PM CDT 650 mg amiodarone in dextrose (ISO-OSM) (NEXTERONE) 150 mg/100 mL (1.5 mg/mL) IVPB 150 mg 150 mg, IV, ONE TIME ONLY, 1 dose, On Nadine 09/02/20 at 0100, Routine New Bag 09/02/2020 1:23 AM CDT 150 mg 600 mL/hr amiodarone in dextrose (ISO-OSM) (NEXTERONE) 150 mg/100 mL (1.5 mg/mL) IVPB 150 mg 150 mg, IV, ONE TIME ONLY, 1 dose, On Nadine 09/02/20 at 0815, Routine New Bag 09/02/2020 9:44 AM CDT 150 mg 600 mL/hr amiodarone in dextrose (ISO-OSM) (NEXTERONE) 360 mg/200 mL (1.8 mg/mL) IV infusion 1 mg/min (33.3333 mL/hr, rounded to 33.33 mL/hr), IV, CONTINUOUS, Starting on Nadine 09/02/20 at 0100, Until 09/04/20 at 0100 Rate Verify 09/03/2020 11:00 PM CDT 0.5 mg/min 16.67 mL/hr Rate Verify 09/03/2020 10:00 PM CDT 0.5 mg/min 16.67 mL/hr Rate Verify 09/03/2020 9:00 PM CDT 0.5 mg/min 16.67 mL/hr apixaban (ELIQUIS) tablet 5 mg 5 mg, Oral, TWO TIMES DAILY, First dose on Sun09/03/20 at 1430, Until Discontinued, Routine, Indication: Non-valvular A Fib Given 09/06/2020 8:47 AM CDT 5 mg Given 09/05/2020 9:00 PM CDT 5 mg Given 09/05/2020 10:10 AM CDT 5 mg bupivacaine PF 0.75% 0.1 %, morphine PF 0.05 mg/mL in sodium chloride 0.9% 408.3 mL EPIDURAL 500 mL, Epidural, at 4 mL/hr, CONTINUOUS, Starting on Sun08/31/20 at 0715, Until Sun09/03/20 at 1418, DS# [id number], Intra-op New Bag 08/31/2020 10:13 AM CDT 4 m L/hr dextrose 5% - sodium chloride 0.45% infusion IV, at 60 mL/hr, CONTINUOUS, Starting on Sun08/31/20 at 1200, Until Sun08/31/20 at 1959, Routine, Post-op - Floor New Bag 08/31/2020 12:47 PM CDT 60 mL/hr docusate sodium (COLACE) capsule 100 mg 100 mg, Oral, TWO TIMES DAILY, First dose on Sun08/31/20 at 1200, Until Discontinued, Routine, Post-op - Floor Given 09/02/2020 9:53 PM CDT 100 mg Given 09/02/2020 8:18 AM CDT 100 mg Given 09/01/2020 9:11 PM CDT 100 mg famotidine (PEPCID) tablet 20 mg 20 mg, Oral, TWO TIMES DAILY, First dose on Sun08/31/20 at 1200, Until Discontinued, Routine, Post-op - Floor Given 09/06/2020 8:47 AM CDT 20 mg Given 09/05/2020 9:00 PM CDT 20 mg Given 09/05/2020 10:11 AM CDT 20 mg gabapentin (NEURONTIN) capsule 100 mg 100 mg, Oral, THREE TIMES DAILY, First dose on Sun08/31/20 at 1300, Until Discontinued, Routine Given 09/06/2020 3:05 PM CDT 100 mg Given 09/06/2020 8:47 AM CDT 100 mg Given 09/05/2020 9:00 PM CDT 100 mg heparin injection 5,000 Units 5,000 Units, subCUT, EVERY 12 HOURS, First dose on Sun08/31/20 at 1200, Until Discontinued, Routine, Post-op - Floor Given 09/03/2020 12:28 AM CDT 5,000 Units Abdominal Tissue Given 09/02/2020 12:40 PM CDT 5,000 Units Abdominal Tissue Given 09/02/2020 12:00 AM CDT 5,000 Units Abdominal Tissue Lidocaine 4 % topical patch 1 Patch 1 Patch, Topical, DAILY, 3 doses, First dose on Sun09/03/20 at 1300, Last dose on Sun09/05/20 at 0900, Routine Applied 09/05/2020 12:36 PM CDT 1 Patch Back, Right Applied 09/04/2020 8:50 AM CDT 1 Patch Ba ck, Right Applied 09/03/2020 2:13 PM CDT 1 Patch Ar m, Left Upper metoprolol tartrate (LOPRESSOR) tablet 25 mg 25 mg, Oral, TWO TIMES DAILY, First dose on Sun09/05/20 at 0915, Until Discontinued, Routine Given 09/06/2020 8:46 AM CDT 25 mg Given 09/05/2020 9:00 PM CDT 25 mg Given 09/05/2020 10:15 AM CDT 25 mg morphine 4 mg/mL injection 2 mg 2 mg, IV, EVERY 2 HOURS PRN, 5 doses, Starting on Sun08/31/20 at 1141, Until Sun09/06/20 at 1855, Pain, Break-Through, Pain, Moderate, Pain, Severe, Routine naloxone (NARCAN) 0.4 mg/mL injection 0.4 mg 0.4 mg, IV, POST-PROCEDURE ONCE PRN, 1 dose, Starting on Sun08/31/20 at 1129, Until Sun09/06/20 at 1855, Other (See Comment), If respiratory rate is less than 6 breaths per minute or patient is difficult to arouse, Routine, Post-op - Floor olmesartan (BENICAR) tablet 40 mg 40 mg, Oral, DAILY, First dose on Sun09/01/20 at 1430, Until Discontinued, Routine Given 09/06/2020 8:46 AM CDT 40 mg Given 09/05/2020 10:11 AM CDT 40 mg Given 09/04/2020 8:50 AM CDT 40 mg ondansetron (ZOFRAN) 4 mg/2 mL injection 4 mg 4 mg, IV, EVERY 6 HOURS PRN, Starting on Sun08/31/20 at 1129, Until Sun09/06/20 at 1855, Nausea/Emesis, Routine, Post-op - Floor Given 09/02/2020 11:00 AM CDT 4 m g oxyCODONE (ROXICODONE) tablet 10 mg 10 mg, Oral, EVERY 4 HOURS PRN, Starting on Sun09/03/20 at 1354, Until Sun09/06/20 at 1855, Pain (See admin instructions), Routine Given 09/04/2020 1:04 AM CDT 10 mg oxyCODONE (ROXICODONE) tablet 5 mg 5 mg, Oral, EVERY 4 HOURS PRN, Starting on Sun09/04/20 at 0724, Until Sun09/06/20 at 1855, Pain (See admin instructions), Routine, Post-op - Floor oxyCODONE (ROXICODONE) tablet 5 mg 5 mg, Oral, EVERY 6 HOURS PRN, Starting on Sun09/04/20 at 0724, Until Sun09/06/20 at 1855, Pain (See admin instructions), Routine, Post-op - Floor Given 09/06/2020 8:59 AM CDT 5 mg oxyCODONE (ROXICODONE) tablet 5 mg 5 mg, Oral, EVERY 4 HOURS PRN, Starting on Sun09/03/20 at 1143, Until Sun09/06/20 at 1855, Pain (See admin instructions), Routine Given 09/05/2020 8:59 PM CDT 5 mg Given 09/04/2020 11:07 PM CDT 5 mg Given 09/03/2020 12:11 PM CDT 5 mg polyethylene glycol (MIRALAX) packet 17 Gram 17 Gram, Oral, TWO TIMES DAILY, First dose on Sun09/03/20 at 0900, Until Discontinued, Routine Given 09/05/2020 10:09 AM CDT 17 Grams Given 09/04/2020 8:49 AM CDT 17 Grams Given 09/03/2020 8:17 PM CDT 17 Grams potassium chloride (KLOR-CON) SR tablet 20 mEq 20 mEq, Oral, ONE TIME ONLY, 1 dose, On [facility] 09/02/20 at 0100, Routine Given 09/02/2020 1:20 AM CDT 20 mEq potassium chloride (KLOR-CON) SR tablet 20 mEq 20 mEq, Oral, ONE TIME ONLY, 1 dose, On [facility] 09/02/20 at 1030, Routine Given 09/02/2020 10:42 AM CDT 20 mEq potassium chloride 40 mEq in sodium chloride 0.9% 250 mL IVPB 40 mEq, IV, ONE TIME ONLY, 1 dose, On [facility] 09/02/20 at 1100, at 76.25 mL/hr, Administer over 4 Hours, Routine New Bag 09/02/2020 11:06 AM CDT 40 mEq 76.25 mL /hr sennosides-docusate sodium (SENNA-S) 8.6-50 mg per tablet 2 Tablet 2 Tablet, Oral, TWO TIMES DAILY, First dose on Sun09/03/20 at 0900, Until Discontinued, Routine Given 09/05/2020 10:11 AM CDT 2 Tablets Given 09/04/2020 8:49 AM CDT 2 Tablets Given 09/03/2020 8:16 PM CDT 2 Tablets traMADoL (ULTRAM) tablet 50 mg 50 mg, Oral, EVERY 6 HOURS PRN, Starting on Sun09/03/20 at 1143, Until Sun09/06/20 at 1855, Pain (See admin instructions), Routine Given 09/04/2020 8:54 PM CDT 50 mg Given 09/04/2020 4:21 AM CDT 50 mg Given 09/03/2020 8:24 PM CDT 50 mg vancomycin (VANCOCIN) 1,000 mg in dextrose 5% 200 mL IVPB (PREMIX) 1,000 mg (rounded from 1,000.5 mg = 15 mg/kg ? 66.7 kg), IV, ONE TIME ONLY, 1 dose, On Sun08/31/20 at 2000, Routine, Post-op - Floor, Antibiotic Indication: Surgical prophylaxis New Bag 08/31/2020 8:44 PM CDT 1,000 mg 200 mL/hr documented in this encounter Active and Recently Administered Medications Times are shown in CDT. Scheduled Medication Order 09/04/2020 09/05/2020 09/06/2020 acetaminophen (TYLENOL) tablet 650 mg 650 mg, Oral, EVERY 6 HOURS, First dose on Sun08/31/20 at 1200, Until Discontinued, Routine 0046 (Given - Provider: Angelia Valera RN)0555 (Given - Provider: Angelia Valera RN)1204 (Given - Provider: Dolly Ji RN)1700 (Given - Provider: Dolly Ji RN) 0000 (Refused - Provider: Angelia Valera RN)0531 (Given - Provider: Angelia Valera RN)1236 (Given - Provider: Hilaria Ferguson RN)1724 (Given - Provider: Hilaria Ferguson RN) 0034 (Given - Provider: Keya Goodman, TUNDE)0552 (Given - Provider: Keya Goodman RN)1200 (Refused - Provider: Maira Curtis RN) apixaban (ELIQUIS) tablet 5 mg 5 mg, Oral, TWO TIMES DAILY, First dose on Sun09/03/20 at 1430, Until Discontinued, Routine, Indication: Non-valvular A Fib 0046 (Given - Provider: Angelia Valera RN)0849 (Given - Provider: Dolly Ji RN)2041 (Given - Provider: Angelia Valera RN) 1010 (Given - Provider: Hilaria Ferguson RN)2100 (Given - Provider: Keya Goodman, TUNDE) 0847 (Given - Provider: Maira Curtis RN) famotidine (PEPCID) tablet 20 mg 20 mg, Oral, TWO TIMES DAILY, First dose on Sun08/31/20 at 1200, Until Discontinued, Routine, Post-op - Floor 0853 (Given - Provider: Dolly Ji RN)204 (Given - Provider: Angelia Valera RN) 101 (Given - Provider: Hilaria Ferguson RN)2100 (Given - Provider: Keya Goodman RN) 0847 (Given - Provider: Maira Curtis RN) gabapentin (NEURONTIN) capsule 100 mg 100 mg, Oral, THREE TIMES DAILY, First dose on Sun08/31/20 at 1300, Until Discontinued, Routine 0849 (Given - Provider: Dolly Ji RN)1544 (Given - Provider: Dolly Ji RN)2040 (Given - Provider: Angelia Valera RN) 1011 (Given - Provider: Hilaria Ferguson RN)1432 (Given - Provider: Hilaria Ferguson RN)2100 (Given - Provider: Keya Goodman RN) 0847 (Given - Provider: Maira Curtis RN)1505 (Given - Provider: Maira Curtis RN) Lidocaine 4 % topical patch 1 Patch (COMPLETED) 1 Patch, Topical, DAILY, 3 doses, First dose on Sun09/03/20 at 1300, Last dose on Sun09/05/20 at 0900, Routine 0213 (Removed - Provider: Angelia Valera RN)0850 (Applied - Provider: Dolly Ji RN)2050 (Removed - Provider: Angelia Valera RN) 1236 (Applied - Provider: Hilaria Ferguson RN) 0036 (Removed - Provider: Keya Goodman RN) metoprolol tartrate (LOPRESSOR) tablet 25 mg 25 mg, Oral, TWO TIMES DAILY, First dose on Sun09/05/20 at 0915, Until Discontinued, Routine 1015 (Given - Provider: Hilaria Ferguson RN)2100 (Given - Provider: Keya Goodman, RN) 0846 (Given - Provider: Maira Curtis, RN - Comment: 146/80) naloxone (NARCAN) 0.4 mg/mL injection 0.1 mg 0.1 mg, IV, SEE ADMIN INSTRUCTIONS, Starting on Sun08/31/20 at 1129, Until Sun09/06/20 at 1855, Routine, Post-op - Floor olmesartan (BENICAR) tablet 40 mg 40 mg, Oral, DAILY, First dose on Sun09/01/20 at 1430, Until Discontinued, Routine 0850 (Given - Provider: Dolly Ji RN) 1011 (Given - Provider: Hilaria Ferguson, TUNDE) 0846 (Given - Provider: Maira Curtis RN) polyethylene glycol (MIRALAX) packet 17 Gram 17 Gram, Oral, TWO TIMES DAILY, First dose on Sun09/03/20 at 0900, Until Discontinued, Routine 0849 (Given - Provider: Dolly Ji RN)2100 (Refused - Provider: Angelia Valera RN) 1009 (Given - Provider: Hilaria Ferguson, TUNDE)2100 (Not Given - Provider: Keya Goodman RN - Reason: Patient condition - Comment: BM today) 0900 (Refused - Provider: Maira Curtis RN) sennosides-docusate sodium (SENNA-S) 8.6-50 mg per tablet 2 Tablet 2 Tablet, Oral, TWO TIMES DAILY, First dose on Sun09/03/20 at 0900, Until Discontinued, Routine 0849 (Given - Provider: Dolly Ji RN)2100 (Refused - Provider: Angelia Valera, TUNDE) 1011 (Given - Provider: Hilaria Ferguson, TUNDE)2100 (Not Given - Provider: Keya Goodman RN - Reason: Patient condition - Comment: BM today) 0900 (Refused - Provider: Maira Curtis RN) PRN Medication Order 09/04/2020 09/05/2020 09/06/2020 bisacodyL (DULCOLAX) rectal suppository 10 mg 10 mg, Rectal, DAILY PRN, Starting on Sun08/31/20 at 1129, Until Sun09/06/20 at 1855, Constipation, Routine, Post-op - Floor diphenhydrAMINE (BENADRYL) injection 12.5 mg 12.5 mg, IV, EVERY 4 HOURS PRN, Starting on Sun08/31/20 at 1129, Until Sun09/06/20 at 1855, Itching, Routine, Post-op - Floor magnesium hydroxide (MILK OF MAGNESIA) oral suspension 30 mL 30 mL, Oral, DAILY PRN, Starting on Sun08/31/20 at 1129, Until Sun09/06/20 at 1855, Constipation, Routine, Post-op - Floor morphine 4 mg/mL injection 2 mg 2 mg, IV, EVERY 2 HOURS PRN, 5 doses, Starting on Sun08/31/20 at 1141, Until Sun09/06/20 at 1855, Pain, Break-Through, Pain, Moderate, Pain, Severe, Routine naloxone (NARCAN) 0.4 mg/mL injection 0.4 mg 0.4 mg, IV, POST-PROCEDURE ONCE PRN, 1 dose, Starting on Sun08/31/20 at 1129, Until Sun09/06/20 at 1855, Other (See Comment), If respiratory rate is less than 6 breaths per minute or patient is difficult to arouse, Routine, Post-op - Floor ondansetron (ZOFRAN) 4 mg/2 mL injection 4 mg 4 mg, IV, EVERY 6 HOURS PRN, Starting on Sun08/31/20 at 1129, Until Sun09/06/20 at 1855, Nausea/Emesis, Routine, Post-op - Floor oxyCODONE (ROXICODONE) tablet 10 mg 10 mg, Oral, EVERY 4 HOURS PRN, Starting on Sun09/03/20 at 1354, Until Sun09/06/20 at 1855, Pain (See admin instructions), Routine 0104 (Given - Provider: Angelia Valera RN) oxyCODONE (ROXICODONE) tablet 5 mg 5 mg, Oral, EVERY 4 HOURS PRN, Starting on Sun09/04/20 at 0724, Until Sun09/06/20 at 1855, Pain (See admin instructions), Routine, Post-op - Floor oxyCODONE (ROXICODONE) tablet 5 mg 5 mg, Oral, EVERY 6 HOURS PRN, Starting on 09/04/20 at 0724, Until 09/06/20 at 1855, Pain (See admin instructions), Routine, Post-op - Floor 2056 (Canceled Entry - Provider: Maira Suarez RN - Comment: medication administered on another medication order) 0859 (Given - Provider: Maira Curtis RN - Comment: 10/25) oxyCODONE (ROXICODONE) tablet 5 mg 5 mg, Oral, EVERY 4 HOURS PRN, Starting on 09/03/20 at 1143, Until 09/06/20 at 1855, Pain (See admin instructions), Routine 2307 (Given - Provider: Angelia Valera RN) 2058 (Given - Provider: Keya Goodman RN) traMADoL (ULTRAM) tablet 50 mg 50 mg, Oral, EVERY 6 HOURS PRN, Starting on 09/03/20 at 1143, Until 09/06/20 at 1855, Pain (See admin instructions), Routine 042 (Given - Provider: Angelia Valera RN)2053 (Given - Provider: Angelia Valera RN) documented in this encounter Care Teams Veneer Trimmer Relationship Specialty Start Date End Date Aliza Bain MD [address] [place] [address] PCP - General Family Practice 07/29/20 11/21/21 documented as of this encounter
--- OUTSIDE RECORDS SUMMARY | 2024-07-01 00:45 | XMS_ITS | Encounter Summary ---
Author Organization [facility] Address [address] [place] [address] Care Team Providers Care Wing Mailer Machine Operator Name Role Phone Aliza Bain MD Primary Care Provider Reason for Visit * Reason Comments Follow Up Encounter Details Date Type Department Care Team (Late st Contact Info) Description 09/29/2020 9:45 AM CDT Office Visit [facility] Cardiovas and Thor Surg at [facility] [id number] [place] [address] Edinson Ferrell MD [facility] [address] [facility] [address] [place] [address] Preop examination (Primary Dx) Social [...] any clubs o r organizations such as latter-day groups, unions, fraternal or athletic groups, or [...] Sign Reading Time Taken Comments Blood Pressure 142/70 09/29/2020 9:36 AM CDT Pulse 84 09/29/2020 9:36 AM CDT Temperature - - Respiratory Rate - - Oxygen Saturation - - Inhaled Oxygen Concentration - - Weight 68 kg (150 lb) 09/29/2020 9:36 AM CDT Height 160 cm (5' 3 ) 09/29/2020 9:36 AM CDT Body Mass Index 26.57 09/29/2020 9:36 AM CDT documented in this encounter Progress Notes * Edinson Ferrell MD - 09/29/2020 9:37 AM CDT Subjective: Cassandra Medina a 75 y.o. female who underwent Right thoracotomy with upper lobectomy Hospital Admission date: 08/31/20 Hospital discharge date: 09/06/20 Referring/Consulting MDs: Dr. Vick Vasquez Since discharge/last visit, she has been staying at home. Activity: normal activities of daily living. Pain level: none/minimal. She continues to take Gabapentin with relief of her symptoms Sleep: sleeping well Appetite: normal Bowel Habits: returned to normal Visits to ER? no Readmissions? no Visit to Assistant Facility Manager? Scheduled to see Dr. Vasquez on 10/01. She was discharged home on holter monitor and this confirms rate controlled afib. She remains on eliquis and metoprolol Visit to Primary Care Physician? no Medication Current Outpatient Medications Medication Sig Dispense Refill ??? apixaban (ELIQUIS) 5 mg tablet Take 1 Tablet (5 mg) by mouth 2 times daily. 60 Tablet 1 ??? gabapentin (NEURONTIN) 100 mg capsule Take 1 Capsule (100 mg) by mouth 3 times daily. 90 Capsule 0 ??? metoprolol tartrate (LOPRESSOR) 25 mg tablet Take 1 Tablet (25 mg) by mouth 2 times daily. 60 Tablet 0 ??? HYDROcodone-acetaminophen (NORCO) 5-325 mg tablet Take [...] No current facility-administered medications for this visit. Objective: Physical Exam: There were no vitals taken for this visit. General appearance: alert, in no distress Chest wound: healing appropriately Heart: irregularly irregular rhythm with rate 84 Abdomen: Soft, non-tender. Bowel sounds normal. No masses, no organomegaly. Extremities: extremities normal, atraumatic, no cyanosis or edema, intact distal pulses, moves all extremities equally, no edema, redness or tenderness in the calves or thighs, normal strength, normal tone Labs: Lab Results Component Value Date/Time SODIUM 133 (L) 09/04/2020 06:22 AM POTASSIUM 4.3 09/04/2020 06:22 AM CHLORIDE 100 09/04/2020 06:22 AM CO2 26 09/04/2020 06:22 AM CALCIUM 8.4 (L) 09/04/2020 06:22 AM BUN 16 09/04/2020 06:22 AM CREATININE 0.72 09/04/2020 06:22 AM GLUCOSE 113 (H) 09/04/2020 06:22 AM ANION GAP 7 (L) 09/04/2020 06:22 AM Lab Results Component Value Date/Time WBC 13.0 (H) 09/01/2020 05:57 AM HEMOGLOBIN 9.6 (L) 09/01/2020 05:57 AM POC HEMOGLOBIN 10.2 (L) 08/31/2020 07:31 AM HEMATOCRIT 29.3 (L) 09/01/2020 05:57 AM POC HEMATOCRIT 31 (L) 08/31/2020 07:31 AM PLATELETS 166 09/01/2020 05:57 AM MCV 93.6 09/01/2020 05:57 AM Last Chest X Ray Results for orders placed or performed during the hospital encounter of 09/27/20 XR CHEST PA AND LATERAL 2 VW Narrative EXAMINATION: CHEST 2 VIEWS DATE: 09/27/2020 2:35 PM HISTORY: Thoracotomy. COMPARISON: 09/06/2020 FINDINGS: Mild elevation of the right hemidiaphragm and small right pleural effusion are again seen, unchanged. No focal lung consolidation or pneumothorax is seen. Heart size is stable. Impression IMPRESSION: 1. Unchanged small right pleural effusion. DICTATION LOCATION: [address] Results for orders placed or performed during the hospital encounter of 08/31/20 XR CHEST PA OR AP 1 VW Narrative CHEST SINGLE VIEW DATE: 09/04/2020 6:00 AM DICTATION LOCATION: Location 1 - [facility] HISTORY: Postoperative evaluation. TECHNIQUE: Single portable [...] 1. Persistent right-sided pneumothorax that is unchanged. Assessment: Patient is doing well status post thoracotomy and lobectomy on the right. Pathology is Stage I. Post OP afib being managed by cardiology. Past Medical History: Diagnosis Date ??? Arthritis ??? Dyspnea on exertion ??? GERD (gastroesophageal reflux disease) ??? HTN (hypertension) ??? Hx of degenerative disc disease ??? Injury of back DDD ??? Malignant neoplasm of lung Plan: Continue Gabapentin as needed for nerve pain under right breast Continue to increase activity as she is able. She does not need further follow up with Dr. Ferrell,she was instructed to call for any surgical issues. She is to continue eliquis and Metoprolol and follow up with Dr. Vasquez as scheduled. Follow up with Dr Hickman. Will see PRN. I have reviewed this encounter and agree with the assessment and plan. Edinson Ferrell MD 11:20 AM 10/03/2020 documented in this encounter Plan of Treatment Upcoming Encounters Date Type Department Care Team (Late st Contact Info) Description 2024 11:00 AM COMMERCIAL REAL ESTATE ASSOCIATE Appointment [facility] [address] [place] [phone] 07/21/2024 9:45 AM COMMERCIAL REAL ESTATE ASSOCIATE Appointment [facility] .[employer] Programmer [address] [place] [phone] Kiel Vasquez MD [address] [facility] [address] [place] [address] 07/21/2024 9:53 AM COMMERCIAL REAL ESTATE ASSOCIATE Hospital Encounter [facility] [employer] [address] [place] [address] Kiel Vasquez MD [address] [facility] [address] [place] [address] Paroxysmal A-fib 07/21/2024 9:53 AM COMMERCIAL REAL ESTATE ASSOCIATE - 07/21/2024 11:46 AM COMMERCIAL REAL ESTATE ASSOCIATE Surgery [facility] [employer] [address] [place] [address] Kiel Vasquez MD [facility] [address] [facility] [address] [place] [phone] Left atrial appendage closure percutaneous 07/28/2024 8:30 AM COMMERCIAL REAL ESTATE ASSOCIATE Office Visit [facility] Oncology and Hematology - [place] [address] [phone] Nahid Hickman MD [address] [facility] [address] [place] [address] 09/09/2024 1:00 PM CDT Office Visit [facility] Heart and Vascular At [address] [place] [address] Kiel Vasquez MD [facility] [address] [facility] [address] [place] [address] 12/16/2024 11:00 AM CDT Office Visit [facility] HEART AND VASCULAR EP AT [address] [place] [address] Demetrius Bowling DNP [facility] [address] [facility] [address] [place] [address] 02/05/2025 10:45 AM CDT Telephone Check Up [facility] Heart and Vascular At [address] [place] [address] 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, ELECTROPLATING SALES REPRESENTATIVE [address] [place] [address] documented as of this encounter Visit Diagnoses Diagnosis Preop examination- Primary Preoperative examination, unspecified Paroxysmal atrial fibrillation- Primary Atrial fibrillation Paroxysmal A-fib Atrial fibrillation Paroxysmal A-fib Atrial fibrillation documented in this encounter Care Teams Wing Mailer Machine Operator Relationship Specialty Start Date End Date Aliza Bain MD [address] [place] [address] PCP - General Family Practice 07/29/20 11/21/21 documented as of this encounter
--- OUTSIDE RECORDS SUMMARY | 2024-07-01 00:45 | XMS_ITS | Encounter Summary ---
Author Organization [facility] Address [address] [facility] Attn: Epic Prelude ADT STU POLK [address] Care Team Providers Care Permaculture Designer Name Role Phone Aliza Bain MD Primary Care Provider Encounter Details Date Type Department Care Team (Latest Contact Info) Description 09/29/2020 Travel Social History Tobacco Use Types Packs/Day [...] have Coronavirus / COVID-19? No / Unsure 09/29/2020 9:22 AM CDT documented as of this encounter Plan of Treatment Upcoming Encounters Date Type Department Care Team (Late st Contact Info) Description 2024 11:00 AM STOREROOM SUPERVISOR Appointment [facility] S [facility] Manjit [address] [place] [address] 07/21/2024 9:45 AM STOREROOM SUPERVISOR Appointment [facility] Bench Molder Apprentice [address] [place] [address] Kiel Vasquez MD [address] [facility] 2014 [place] [address] 07/21/2024 9:53 AM STOREROOM SUPERVISOR Hospital Encounter [facility] Bench Molder Apprentice [address] [place] [address] Kiel Vasquez MD [address] [facility] 2014 [place] [address] Jesse Lackey-fib 07/21/2024 9:53 AM STOREROOM SUPERVISOR - 07/21/2024 11:46 AM STOREROOM SUPERVISOR Surgery [facility] Bench Molder Apprentice [address] [place] [address] Kiel Vasquez MD [address] [place] [address] 2014 [place] [address] Left atrial appendage closure percutaneous 07/28/2024 8:30 AM STOREROOM SUPERVISOR Office Visit [facility] Oncology and Hematology - [place] [address] [facility] 200 [place] [address] Nahid Hickman MD [address] [facility] [address] [place] [address] 09/09/2024 1:00 PM CDT Office Visit [facility] Heart and Vascular At [address] 2014 [place] [address] Kiel Vasquez MD [address] [place] [address] 2014 [place] [address] 12/16/2024 11:00 AM CDT Office Visit [facility] HEART AND VASCULAR EP AT [address] 2014 [place] [address] Demetrius Bowling DNP [address] [place] [address] 2014 [place] [address] 02/05/2025 10:45 AM CDT Telephone Check Up [facility] Heart and Vascular At [address] [place] [address] 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 FNP [address] [place] [phone] documented as of this encounter Visit Diagnoses Not on filedocumented in this encounter Care Teams Permaculture Designer Relationship Specialty Start Date End Date Aliza Bain MD [address] [place] [address] PCP - General Family Practice 07/29/20 11/21/21 documented as of this encounter
--- OUTSIDE RECORDS SUMMARY | 2024-07-01 00:45 | XMS_ITS | Encounter Summary ---
Author Organization [facility] ulike [facility] Address [address] [place] [address] Care Team Providers Care Shadowgraph Scale Operator Name Role Phone Aliza Bain MD Primary Care Provider Encounter Details Date Type Department Care Team (Late st Contact Info) Description 08/06/2020 Orders Only [facility] Oncology and Hematology - [place] [address] [place] [address] Destiny Astorga, TUNDE Malignant neoplasm of right upper lobe of lung Social History Tobacco Use Types Packs/Day Years Used Date Smoking Tobacco: Never Smokeless Tobacco: Never Alcohol Use Standard [...] and Family Not on file 07/29/2020 Attends [employer] Not on file 07/29 Do you [...] have Coronavirus / COVID-19? No / Unsure 07/29/2020 2:06 PM RECORD CENTER COORDINATOR documented as of this encounter Plan of Treatment Upcoming Encounters Date Type Department Care Team (Late st Contact Info) Description 2024 11:00 AM RECORD CENTER COORDINATOR Appointment [facility] Manjit [address] [place] [address] 07/21/2024 9:45 AM RECORD CENTER COORDINATOR Appointment [facility] Surgical Services Asst [address] [place] [phone] Kiel Vasquez MD [address] 2014 [place] [address] 07/21/2024 9:53 AM RECORD CENTER COORDINATOR Hospital Encounter [facility] Surgical Services Asst [address] [place] [phone] Kiel Vasquez MD [address] 2014 [place] [address] Paroxysmal A-fib 07/21/2024 9:53 AM RECORD CENTER COORDINATOR - 07/21/2024 11:46 AM RECORD CENTER COORDINATOR Surgery [facility] Asst [address] [place] [phone] Kiel Vasquez MD [address] [place] [address] 2014 [place] [address] Left atrial appendage closure percutaneous 07/28/2024 8:30 AM RECORD CENTER COORDINATOR Office Visit [facility] Oncology and Hematology - [place] [address] [facility] 200 [place] [address] Nahid Hickman MD [address] [facility] [address] [place] [address] 09/09/2024 1:00 PM CDT Office Visit [facility] Heart and Vascular At [address] 2014 [place] [address] Kiel Vasquez MD [address] [place] [address] 2014 [place] [address] 12/16/2024 11:00 AM CDT Office Visit [facility] HEART AND VASCULAR EP AT [address] 2014 [place] [address] Demetrius Bowling DNP [address] [place] [address] 2014 [place] [address] 02/05/2025 10:45 AM CDT Telephone Check Up [facility] Heart and Vascular At [address] 2014 [place] [address] 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 FNP [facility] [place] [address] documented as of this encounter Procedures Procedure Name Priority Date/Time Associated Diagnosis Comments PET TUMOR OR INFECTION IMG W CT SKB MDTH Routine 08/05/2020 Malignant neoplasm of right upper lobe of lung documented in this encounter Results * PET TUMOR IMG W CT SKL BSE MID THG (08/05/2020) Anatomical Region Laterality Modality Other Nahid Hickman MD PE ORDERABLES documented in this encounter Visit Diagnoses Diagnosis Malignant neoplasm of right upper lobe of lung Malignant neoplasm of upper lobe, bronchus or lung Paroxysmal atrial fibrillation- Primary Atrial fibrillation Paroxysmal A-fib Atrial fibrillation Paroxysmal A-fib Atrial fibrillation documented in this encounter Care Teams Shadowgraph Scale Operator Relationship Specialty Start Date End Date Aliza Bain MD [address] [place] [address] PCP - General Family Practice 07/29/20 11/21/21 documented as of this encounter
--- OUTSIDE RECORDS SUMMARY | 2024-07-01 00:45 | XMS_ITS | Encounter Summary ---
Author Organization [facility] Address [address] [place] [address] Care Team Providers Care Crnp Name Role Phone Aliza Bain MD Primary Care Provider Reason for Visit * Reason Comments Hospital Follow Up A. Fib Encounter Details Date Type Department Care Team (Late st Contact Info) Description 10/01/2020 12:15 PM CDT Office Visit [facility] Heart and Vascular At [address] [place] [address] Kiel Vasquez MD [address] [place] [address] 2014 [place] [address] New onset atrial fibrillation (Primary Dx); Benign hypertension; Carotid [...] Sign Reading Time Taken Comments Blood Pressure 140/63 10/01/2020 11:50 AM CDT Pulse 55 10/01/2020 11:50 AM CDT Temperature 36.4 ??C (97.6 ??F) 10/01/2020 11:50 AM C DT Respiratory Rate - - Oxygen Saturation 98% 10/01/2020 11:50 AM CDT Inhaled Oxygen Concentration - - Weight 70.8 kg (156 lb) 10/01/2020 11:50 AM CDT Height 161.3 cm (5' 3.5 ) 10/01/2020 11:50 AM CD T Body Mass Index 27.2 10/01/2020 11:50 AM CDT documented in this encounter Progress Notes * Kiel Vasquez MD - 10/01/2020 12:15 PM CDT [facility] Heart and Vascular Primary Care Physician: Aliza Bain MD Problem List #. afib #. HTN #. 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 Carotid artery stenosis History Of Present Illness Cassandra Martinez is a delightful 75 y.o. female with the above mentioned medical problems. The patient was recently admitted for lung cancer resection. Post operatively developed atrial fibrillation. Was on amio drip for 48hrs and did not convert. She was discharged with a 2 week event monitor that demonstrated afib. Since that time she has felt well. She has appropriate soreness over her right flank from the thoracotomy. She is able to do ADLs, clean her house, and go grocery shopping. She is walking around her neighborhood. She has no cardiac sx or concerns. She is not aware of afib. No CP. No new or significant dyspnea. No light-headedness or syncope. Taking meds. No bleeding or neuro symptoms. Weight similar to recent past. Has 2 children, 3 grand children, 3 great grand children in [facility]. Past Medical History Past Medical [...] of Systems See HPI Physical Exam Vitals: 10/01/20 1150 BP: (!) 140/63 Pulse: (!) 55 Temp: 97.6 ??F (36.4 ??C) SpO2: 98% Weight: 70.8 kg (156 lb) Height: 5' 3.5 (1.613 m) General: no distress, oriented, looks well CV: normal neck veins, normal auscultated S1/2, no extra heart sounds or gallops, no murmurs Lungs: clear to auscultation bilaterally, no wheezes, rales, rhonchi Ext: no edema, warm, pulses intact Laboratory Data No results found for this visit on 10/01/20 (from the past 24 hour(s)). Lab Results [...] who presents for eval Atrial fibrillation - [id number] = 4 -Will continue rate control with metoprolol. -On OAC with eliquis Hypertension - BP well controlled. Will continue current medications. -Continue olmesartan, HCTZ PAD - carotid artery stenosis -follows with vascular -cont aspirin -discuss lipid panel next visit RTC 6 months * diet, exercise, and [...] any questions or concerns. Kiel Vasquez MD [facility] - Heart and Vascular General, Interventional, and Structural Cardiology Vascular Medicine and Intervention [address] [facility] [address] [place] [address] Office Office Medications Current Outpatient Medications: ??? apixaban (ELIQUIS) 5 mg tablet, Take 1 Tablet (5 mg) by mouth 2 times daily., Disp: 60 Tablet, Rfl: 1 ??? gabapentin (NEURONTIN) 100 mg capsule, Take 1 Capsule (100 mg) by mouth 3 times daily., Disp: 90 Capsule, Rfl: 0 ??? metoprolol tartrate (LOPRESSOR) 25 mg tablet, Take 1 Tablet (25 mg) by mouth 2 times daily., Disp: 60 Tablet, Rfl: 0 ??? HYDROcodone-acetaminophen (NORCO) 5-325 mg tablet, Take [...] tab by mouth daily, Disp: , Rfl: * Bing Rivera - 10/01/2020 11:50 AM CDT Patient is present in the office today for a hospital follow up. Patient has concerns of chest pains on the right side. documented in this encounter Miscellaneous Notes * Patient Instructions - Kiel Vasquez MD - 10/01/2020 1:35 PM CDT 1. Continue current medications 2. Diet, exercise, weight loss 3. Return in 6 months documented in this encounter Plan of Treatment Upcoming Encounters Date Type Department Care Team (Late st Contact Info) Description 2024 11:00 AM TIRE REGROOVING MACHINE OPERATOR Appointment [facility] S [facility] Manjit [address] [place] [phone] 07/21/2024 9:45 AM TIRE REGROOVING MACHINE OPERATOR Appointment [facility] Translator/Interpreter [address] [place] [address] Kiel Vasquez MD [address] [phone] 07/21/2024 9:53 AM TIRE REGROOVING MACHINE OPERATOR Hospital Encounter [facility] Translator/Interpreter [address] [place] [address] Kiel Vasquez MD [facility] S [facility] 2014 [place] [phone] Paroxysmal A-fib 07/21/2024 9:53 AM TIRE REGROOVING MACHINE OPERATOR - 07/21/2024 11:46 AM TIRE REGROOVING MACHINE OPERATOR Surgery [facility] Translator/Interpreter [facility] [place] [address] Kiel Vasquez MD [address] [place] [address] 2014 [place] [address] Left atrial appendage closure percutaneous 07/28/2024 8:30 AM TIRE REGROOVING MACHINE OPERATOR Office Visit [facility] Oncology and Hematology - [place] [address] [facility] [address] [place] [address] Nahid Hickman MD 2[address] [facility] [address] [place] [address] 09/09/2024 1:00 PM CDT Office Visit [facility] Heart and Vascular At [address] 2014 [place] [address] Kiel Vasquez MD [facility] S [facility] 2014 [place] [phone] 12/16/2024 11:00 AM CDT Office Visit [facility] HEART AND VASCULAR EP AT [address] [place] [phone] Demetrius Bowling DNP [address] [place] [address] 2014 [place] [address] 02/05/2025 10:45 AM CDT Telephone Check Up [facility] Heart and Vascular At [address] 2014 [place] [address] 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 FNP [facility] [place] [address] documented as of this encounter Visit Diagnoses Diagnosis New onset atrial fibrillation- Primary Atrial fibrillation Benign hypertension Essential hypertension, benign Carotid artery disease, unspecified laterality, unspecified type Paroxysmal atrial fibrillation- Primary Atrial fibrillation Paroxysmal A-fib Atrial fibrillation Paroxysmal A-fib Atrial fibrillation documented in this encounter Care Teams Crnp Relationship Specialty Start Date End Date Aliza Bain MD [address] [place] [address] PCP - General Family Practice 07/29/20 11/21/21 documented as of this encounter
--- OUTSIDE RECORDS SUMMARY | 2024-07-01 00:45 | XMS_ITS | Encounter Summary ---
Author Organization [facility] Address [address] [place] [address] Care Team Providers Care Search Engineer Name Role Phone Aliza Bain MD Primary Care Provider Encounter Details Date Type Department Care Team (Latest Contact Info) Description 08/27/2020 10:20 AM LAB SPECIALIST - 08/27/2020 11:59 PM [facility] Hospital Encounter [facility] Pre Procedure Viral Testing [address] [address] Discharge Disposition: Home or Self Care Social [...] COVID-19? No / Unsure 08/18/2020 12:05 PM LAB SPECIALIST documented as of this encounter Medications [...] Contact Info) Description 2024 11:00 AM LAB SPECIALIST Appointment [facility] S [facility] [address] [place] [address] 07/21/2024 9:45 AM LAB SPECIALIST Appointment [facility] Gluing Machine Operator Electronic [address] [place] [address] Kiel Vasquez MD [address] [facility] 2014 [place] [address] 07/21/2024 9:53 AM LAB SPECIALIST Hospital Encounter [facility] Gluing Machine Operator Electronic [address] [place] [address] Kiel Vasquez MD [address] [facility] 2014 [place] [address] Paroxysmal A-fib 07/21/2024 9:53 AM LAB SPECIALIST - 07/21/2024 11:46 AM LAB SPECIALIST Surgery [facility] Gluing Machine Operator Electronic [address] [place] [address] Kiel Vasquez MD [address] [facility] 2014 [place] [address] Left atrial appendage closure percutaneous 07/28/2024 8:30 AM LAB SPECIALIST Office Visit [facility]3] Oncology and Hematology - [place] [address] [facility] 200 [place] [address] Nahid Hickman MD [address] [facility] [address] [place] [address] 09/09/2024 1:00 PM CDT Office Visit [facility]3] Heart and Vascular At [place] [address] [address] [facility] [address] [place] [address] Kiel Vasquez MD [address] [facility] [address] [place] [address] 12/16/2024 11:00 AM CDT Office Visit [facility] HEART AND VASCULAR EP AT [place] [address] [facility] [address] [place] [phone] Demetrius Bowling DNP [address] [facility] [address] [place] [address] 02/05/2025 10:45 AM CDT Telephone Check Up [facility]3] Heart and Vascular At [address] [place] [address] 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, CAT [address] [place] [address] documented as of this encounter Procedures Procedure Name Priority Date/Time Associated Diagnosis Comments 2019 NOVEL CORONAVIRUS (COVID-19) PCR DETECTION Routine 08/27/2020 10:48 AM LAB SPECIALIST Preop testing documented in this encounter Results * 2019 NOVEL CORONAVIRUS (COVID-19) PCR DETECTION (08/27/2020 10:48 AM LAB SPECIALIST) COVID-19 PCR NOT DETECTED Not Detected 08/28/19 7:23 PM LAB SPECIALIST [facility] LABORAT[facility] PERFORMING LAB [facility] 08/27/2020 7:23 PM LAB SPECIALIST [facility] Upper Respiratory ENTIRE NASOPHARYNX / Unknown Collection / Unknown 08/27/2020 10:48 AM LAB SPECIALIST 08/27/2020 2:18 PM LAB SPECIALIST Narrative [facility] - 08/27/2020 7:23 PM LAB SPECIALIST This test has been authorized by the FDA under an Emergency Use Authorization for use by authorized laboratories.?? This test has been validated in accordance with the FDA's guidance regarding Coronavirus Disease-2019 testing.?? Optimum specimen types and timing for peak viral levels during infection have not been determined.?? A negative RT-PCR result does not rule out infection with the 2019-Novel Coronavirus. Edinson Ferrell MD MICROBIOLOGY - [facility] AL ORDERABLES Performing Organization Address City/State/[facility] Co de Phone Number [facility] LABORATORY SERVICES [facility]# [id number] [address] [facility] [place] [address] documented in this encounter Visit Diagnoses Diagnosis Preop testing Preoperative examination, unspecified Paroxysmal atrial fibrillation- Primary Atrial fibrillation Paroxysmal A-fib Atrial fibrillation Paroxysmal A-fib Atrial fibrillation documented in this encounter Care Teams Search Engineer Relationship Specialty Start Date End Date Aliza Bain MD [address] [place] [address] PCP - General Family Practice 07/29/20 11/21/21 documented as of this encounter
--- OUTSIDE RECORDS SUMMARY | 2024-07-01 00:45 | XMS_ITS | Encounter Summary ---
Author Organization [facility] Address [address] [place] [address] Care Team Providers Care Water Meter Mechanic Name Role Phone Aliza Bain MD Primary Care Provider Reason for Visit * Reason Comments Surgical Consult * Eval and Treat (Routine) - Closed Specialty Diagnoses / Procedures Referred By Contac t Referred To Contact Thoracic Surgery / Cardiothoracic Surgery Diagnoses Malignant neoplasm of right lung, unspecified part of lung Nahid Hickman MD [facility] [address] [place] [phone] Edinson Correa MD [address] [place] [address] [id number] [place] [address] Referral ID Status Reason Start Date Expiration Date V isits Requested Visits Authorized [id number] Closed Performing Dept To Review 07/29/2020 07/29/2021 1 1 Encounter Details Date Type Department Care Team (Late st Contact Info) Description 08/18/2020 11:30 AM PUBLIC HEALTH INSPECTOR Office Visit [facility] Cardiovas and Thor Surg at [facility] [address] [place] [address] [id number] [place] [address] Nahid Hickman MD [facility] [address] [place] [phone] Edinson Correa MD [address] [place], [place] [address] [address] [place] [address] Non-small cell cancer of right lung (Primary Dx) Social History [...] COVID-19? No / Unsure 08/18/2020 12:05 PM PUBLIC HEALTH INSPECTOR documented as of this encounter Last Filed Vital Signs Vital Sign Reading Time Taken Comments Blood Pressure 148/70 08/18/2020 12:31 PM PUBLIC HEALTH INSPECTOR Pulse 61 08/18/2020 12:31 PM PUBLIC HEALTH INSPECTOR Temperature - - Respiratory Rate 18 08/18/2020 12:31 PM PUBLIC HEALTH INSPECTOR Oxygen Saturation - - Inhaled Oxygen Concentration - - Weight 68 kg (150 lb) 08/18/2020 12:31 PM PUBLIC HEALTH INSPECTOR Height 161.3 cm (5' 3.5 ) 08/18/2020 12:31 PM CS T Body Mass Index 26.15 08/18/2020 12:31 PM PUBLIC HEALTH INSPECTOR documented in this encounter Progress Notes * Edinson Correa MD - 08/18/2020 4:16 PM CST Images from the original note were not included. CTS History and Physical PRIMARY CARE PHYSICIAN: Aliza Bain MD Zee Martinez is an 75 y.o. female who was referred by Dr Hickman for evaluation of RUL adenocarcinoma.She has PMH of carotid artery stenosis (followed by vascular) and HTN. Ms Martinez stated that she was diagnosed with pneumonia in April and underwent CXR that identified a suspicious mass in the RUL.Chest CT was performed, confirming the RUL mass. Repeat CT was performed in July which promptedneedle biopsy and PET scan. Needle biopsy confirmed that the RUL mass was NSCL. PET was done on 08/05/20 and showed the 3.5 cm RUL with FDG update. Ms Martinez has had PFTs which are favorable for lung resection - demonstrating FEV1 of 1.6 and DLCO of 66%. Ms Martinez comes in today for consultation of right upper lobectomy. She denies CP, dizziness, unexplained weight loss, cough, hemoptysis, nausea or vomiting. She does experience fatigue and SOB. PET Scan Results (08/05/20): Past Medical History Patient does not have a history of DM that is treated with diet control. Body mass index is 26.15 kg/m??.: Patient is Overweight with BMI 25-29.9 Past Medical History: Diagnosis Date ??? Arthritis ??? Dyspnea on exertion ??? GERD (gastroesophageal reflux disease) ??? HTN (hypertension) ??? Hx of degenerative disc disease ??? Injury of back DDD ??? Malignant neoplasm of lung Past Surgical History Past Surgical History: Procedure Laterality Date ??? HX ANKLE SURGERY ??? HX COLONOSCOPY W/ POLYPECTOMY ??? HX HYSTERECTOMY ??? HX TONSILLECTOMY ??? HX TRIGGER FINGER REPAIR Medications Current Outpatient Medications Medication Sig Dispense Refill ??? cyanocobalamin (VITAMIN [...] Take 81 mg by mouth daily. ??? hydroCHLOROthiazide 25 mg tablet TAKE 1 TABLET BY MOUTH EVERY DAY ??? olmesartan (BENICAR) 40 mg tablet Take 40 mg by mouth daily. Medication bottle is Olmesartan Medoxomil 40 MG tab1 tab by mouth daily ??? cholecalciferol, vitamin D3, (VITAMIN D3 ORAL) Take by mouth. No current facility-administered medications for this visit. Allergies Allergies Allergen Reactions ??? Penicillins Hives Pt does not have a latex allergy Pt does not have a history of LLUVIA Pt does not have a history of ID requiring isolation Family History Family History Problem Relation Name Age of Onset ??? Heart Disease Father ??? Heart Disease Mother ??? Stroke Sister ??? Asthma Sister Social History Social History Socioeconomic History ??? Marital status: Spouse name: Not on file ??? Number of children: Not on file ??? Years of education: Not on file ??? Highest education level: Not on file Occupational History ??? Not on file Social Needs ??? Financial resource strain: Not hard at all ??? Food insecurity Worry: Not on file Inability: Not on file ??? Transportation needs Medical: No Non-medical: No Tobacco Use ??? Smoking status: Former Smoker Packs/day: 0.50 Years: 40.00 Pack years: 20.00 Types: Cigarettes Quit date: 08/19/1999 Years since quittin.0 ??? Smokeless tobacco: Never Used Substance and Sexual Activity ??? Alcohol use: Yes Frequency: Monthly or less Comment: occasional ??? Drug use: Never ??? Sexual activity: Not on file Lifestyle ??? Physical activity Days per week: 0 days Minutes per session: 0 min ??? Stress: To some extent Relationships ??? Social connections Talks on phone: Not on file Gets together: Not on file Attends bahai service: Not on file Active member of club or organization: Yes Attends meetings of clubs or organizations: Never Relationship status: Not on file ??? Intimate partner violence Fear of current or ex partner: No Emotionally abused: No Physically abused: No Forced sexual activity: No Other Topics Concern ??? Not on file Social History Narrative ??? Not on file Review of Systems History obtained from the patient Constitutional: denies fevers, chills, weight loss Respiratory: denies hemoptysis, wheeze, +SOB, +fatigue Cardiovascular: denies chest pain, irregular heart beats Gastrointestinal: denies abdominal pain, change in bowel habits, no hematochezia, hematemesis Genitourinary: denies dysuria, frequency Hematologic: denies: bruising, bleeding Musculoskeletal: denies myalgias and muscle weakness Neurological: denies motor or sensory deficit Behavior, Psychologic: denies anxiety and depression Objective: Vitals: 08/18/20 1231 BP: (!) 148/70 Pulse: 61 Resp: 18 Last documented weight: Weight: 68 kg (150 lb) (08/18/20 1231) Body mass index is 26.15 kg/m??./ Ht Readings from Last 1 Encounters: 08/18/20 5' 3 (1.6 m) General appearance: alert, in no distress Eyes: No acute conjunctivitis, sclerae anicteric Neck: neck is supple, trachea is midline, +bilateral carotid bruit Head: atraumatic, normocephalic, without obvious [...] lifelong environmental sun exposure/tanning Neurologic: grossly normal Labs No results found for: WBC, MANUALWBC, HGB, HGBPOC, HCT, HCTPOC, PLT, MCV No results found for: NA, K, CL, CO2, CA, BUN, CREAT, GLUCOSE, ANIONGAP, BCRATIO Assessment: RUL NSCL with favorable PFTs Right thoracotomy with right upper lobectomy Because of wait time will not be able to do robotically and patient is anxious to schedule for CAMILO. Will load up the images and review prior to surgery. Past Medical History: Diagnosis Date ??? Arthritis ??? Dyspnea on exertion ??? GERD (gastroesophageal reflux disease) ??? HTN (hypertension) ??? Hx of degenerative disc disease ??? Injury of back DDD ??? Malignant neoplasm of lung Past Surgical History: Procedure Laterality Date ??? HX ANKLE SURGERY ??? HX COLONOSCOPY W/ POLYPECTOMY ??? HX HYSTERECTOMY ??? HX TONSILLECTOMY ??? HX TRIGGER FINGER REPAIR Plan: We explained to Ms. Martinez what we recommend- a right thoracotomy with right upper lobectomy and lymph node dissection. I reviewed the indications and risks (bleeding, infection, HI, arrythmias, lung injury, blood clots, pneumonia and prolonged O2 requirements). Ms. Martinez understand, had She questionsanswered and wish to proceed with surgery. We scheduled Ms. Martinez for surgery on 08/31/20. She will be seen in pre-op clinic beforehand. We encouraged Ms. Martinez to call with any questions or concerns. Chronic conditions will be addressed by the patient's Primary Care Physician (Aliza Bain MD). Patient encouraged to follow-up with their PCP. She is not a tobacco user. Plan to proceed with resection. Discussed with the patient in detail and she agrees to proceed. I have reviewed this encounter and agree with the assessment and plan. Edinson Correa MD 12:40 PM 08/22/2020 IC HEALTH INSPECTOR documented in this encounter Plan of Treatment Upcoming Encounters Date Type Department Care Team (Late st Contact Info) Description 2024 11:00 AM PUBLIC HEALTH INSPECTOR Appointment [facility] [address] [place] [phone] 07/21/2024 9:45 AM PUBLIC HEALTH INSPECTOR Appointment [facility] Charge Authorizer [address] [place] [phone] Kiel Vasquez MD [address] [facility] [address] [place] [phone] 07/21/2024 9:53 AM PUBLIC HEALTH INSPECTOR Hospital Encounter [facility] Charge Authorizer [address] [place] [phone] Kiel Vasquez MD [address] [facility] [address] [place] [address] Paroxysmal A-fib 07/21/2024 9:53 AM PUBLIC HEALTH INSPECTOR - 07/21/2024 11:46 AM PUBLIC HEALTH INSPECTOR Surgery [facility] Charge Authorizer [address] [place] [phone] Kiel Vasquez MD [address] [facility] [address] [place] [phone] Left atrial appendage closure percutaneous 07/28/2024 8:30 AM PUBLIC HEALTH INSPECTOR Office Visit [facility] Oncology and Hematology - [place] [address] [place] [phone] Nahid Hickman MD [address] [facility] [address] [place] [address] 09/09/2024 1:00 PM CDT Office Visit [facility] Heart and Vascular At [facility] [address] [facility] [address] [place] [phone] Kiel Vasquez MD [address] [facility] [address] [place] [address] 12/16/2024 11:00 AM CDT Office Visit [facility] HEART AND VASCULAR EP AT [facility] [address] [facility] [address] [place] [address] Demetrius Bowling DNP [address] [address] [facility] [address] [place] [address] 02/05/2025 10:45 AM CDT Telephone Check Up [facility] Heart and Vascular At [facility] [address] [facility] [address] [place] [address] 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 FNP [address] [place] [address] Scheduled Orders Name Type Priority Associated Diagnoses Orde r Schedule PREPARE RED BLOOD CELLS Blood Bank Routine Non-small cell cancer of right lung Expected: 08/18/2020, Expires: 08/18/2021 documented as of this encounter Results * XR CHEST PA AND LATERAL 2 VW (08/18/2020 4:04 PM PUBLIC HEALTH INSPECTOR) Anatomical Region Laterality Modality Chest Computed Radiogr aphy 08/18/2020 4:04 PM PUBLIC HEALTH INSPECTOR Impressions 08/18/2020 4:09 PM PUBLIC HEALTH INSPECTOR IMPRESSION: No acute chest finding. Masslike opacity in the right upper lobe likely corresponds with known malignancy ?? DICTATION LOCATION: Location 9 [facility] 08/18/2020 4:09 PM PUBLIC HEALTH INSPECTOR PA AND LATERAL CHEST, 2 VIEWS Exam [...] within normal limits. No acute osseous abnormality. Procedure Note Laura Burton MD - 08/18/2020 PA AND LATERAL CHEST, 2 VIEWS Exam [...] within normal limits. No acute osseous abnormality. IMPRESSION: No acute chest finding. Masslike opacity in the right upper lobe likely corresponds with known malignancy DICTATION LOCATION: Location 9 - [facility] Edinson Correa MD DIAGNOSTIC IMAGING O RDERABLES * EKG 12-LEAD (08/18/2020 3:05 PM PUBLIC HEALTH INSPECTOR) 08/18/2020 3:05 PM PUBLIC HEALTH INSPECTOR Narrative INTERFACE SYSTEM - 08/18/2020 5:52 PM PUBLIC HEALTH INSPECTOR ? Stationary ECG Study ? [facility] ? Test Date: ?08/18/2020 3:05 PM Pat Name: ? ZEE MARTINEZ ? Department: ?? 46 ?Room: ? Gender: ? F ?Martial Arts Instructor: ?? [email or web address] : ?1945 ? Requested By: EDINSON CORREA Order Number: [id number] ?Reading MD: ?? Monroe Encarnacion ? Measurements Intervals ?Pinon ? Rate: ? 60 ? P: ?42 RI: ? 185 ?QRS: ?33 QRSD: ? 85 ? T: ?29 QT: ? 434 ? QTc: ?434 ? Interpretive Statements ? Sinus rhythm PAC Electronically Signed On 08-18-2020 17:52:59 PUBLIC HEALTH INSPECTOR by Monroe Encarnacion Procedure Note Monroe Encarnacion MD - 08/18/2020 Stationary ECG Study [facility] Test Date: 08/18/2020 3:05 PM Pat Name: ZEE MARTINEZ Department: 46 Room: Gender: F Martial Arts Instructor: yung : 1945 Requested By: EDINSON CORREA Order Number: [id number] Reading MD: Monroe Encarnacion Measurements Intervals Pinon Rate: 60 P: 42 RI: 185 QRS: 33 QRSD: 85 T: 29 QT: 434 QTc: 434 Interpretive Statements Sinus rhythm PAC Electronically Signed On 08-18-2020 17:52:59 PUBLIC HEALTH INSPECTOR by Monroe Encarnacion Edinson Correa MD ECG ORDERABLES INTERFACE SYSTEM Refer to clinic/hospital department documented in this encounter Visit Diagnoses Diagnosis Non-small cell cancer of right lung- Primary Preop testing- Primary Preoperative examination, unspecified Non-small cell cancer of right lung Paroxysmal atrial fibrillation- Primary Atrial fibrillation Paroxysmal A-fib Atrial fibrillation Paroxysmal A-fib Atrial fibrillation documented in this encounter Care Teams Water Meter Mechanic Relationship Specialty Start Date End Date Aliza Bain MD [address] [place] [address] PCP - General Family Practice 07/29/20 11/21/21 documented as of this encounter
--- OUTSIDE RECORDS SUMMARY | 2024-07-01 00:45 | XMS_ITS | Encounter Summary ---
Author Organization [facility] Address [address] [place] [address] Care Team Providers Care Manager Employee Relations Name Role Phone Aliza Bain MD Primary Care Provider Reason for Visit * Reason Onset Date Comments Information 09/30/2020 Encounter Details Date Type Department Care Team (Late st Contact Info) Description 09/30/2020 Telephone [facility] Cardiovas and Thor Surg at [facility] Heart Hosp [address] [facility] [address] [place] [address] Edinson Ferrell MD [address] [facility] [address] [place] [address] Information Social History Tobacco Use [...] encounter Miscellaneous Notes * Telephone Encounter - Jermain Carlisle RN - 09/30/2020 2:50 PM CDT Call from [place], with [facility]. Reports patient discharging from [facility] today having met goals. This is noted. documented in this encounter Plan of Treatment Upcoming Encounters Date Type Department Care Team (Late st Contact Info) Description 2024 11:00 AM PHOTONIC LABORATORY TECHNICIAN Appointment [facility] [address] [place] [address] 07/21/2024 9:45 AM PHOTONIC LABORATORY TECHNICIAN Appointment [facility] Clothing Manager [address] [place] [phone] Kiel Vasquez MD [address] [facility] [address] [place] [address] 07/21/2024 9:53 AM PHOTONIC LABORATORY TECHNICIAN Hospital Encounter [facility] Clothing Manager [address] [place] [phone] Kiel Vasquez MD [address] [facility] [address] [place] [phone] Paroxysmal A-fib 07/21/2024 9:53 AM PHOTONIC LABORATORY TECHNICIAN - 07/21/2024 11:46 AM PHOTONIC LABORATORY TECHNICIAN Surgery [facility] Clothing Manager [address] [place] [phone] Kiel Vasquez MD [address] [facility] [address] [place] [phone] Left atrial appendage closure percutaneous 07/28/2024 8:30 AM PHOTONIC LABORATORY TECHNICIAN Office Visit [facility] Oncology and Hematology - [address] [phone] Nahid Hickman MD [address] [facility] [address] [place] [address] 09/09/2024 1:00 PM CDT Office Visit [facility] Heart and Vascular At [address] [place] [phone] Kiel Vasquez MD [address] [facility] [address] [place] [address] 12/16/2024 11:00 AM CDT Office Visit [facility] HEART AND VASCULAR EP AT [address] [place] [address] Demetrius Bowling, TRUONG [address] [facility] [address] [place] [address] 02/05/2025 10:45 AM CDT Telephone Check Up [facility] Heart and Vascular At [facility] [address] [address] [place] [address] 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, CAT [address] [place] [address] documented as of this encounter Visit Diagnoses Not on filedocumented in this encounter Care Teams Manager Employee Relations Relationship Specialty Start Date End Date Aliza Bain MD [address] [place] [phone] PCP - General Family Practice 07/29/20 11/21/21 documented as of this encounter
--- OUTSIDE RECORDS SUMMARY | 2024-07-01 00:45 | XMS_ITS | Encounter Summary ---
Author Organization [facility] Address [address] Corleyn: Epic Prelude ADT [place] [address] Care Team Providers Care Criminal Investigator Customs Name Role Phone Aliza Bain MD Primary Care Provider Encounter Details Date Type Department Care Team (Latest Contact Info) Description 07/29/2020 Travel Social History Tobacco Use Types Packs/Day [...] COVID-19? No / Unsure 07/29/2020 2:06 PM SOLID CENTER WINDER documented as of this encounter Plan of Treatment Upcoming Encounters Date Type Department Care Team (Late st Contact Info) Description 2024 11:00 AM SOLID CENTER WINDER Appointment [facility] [address] [place] [address] 07/21/2024 9:45 AM SOLID CENTER WINDER Appointment [facility] Director Hospice Operations [address] [place] [address] Kiel Vasquez MD [address] [place] [address] [facility] [address] [place] [address] 07/21/2024 9:53 AM SOLID CENTER WINDER Hospital Encounter [facility] Director Hospice Operations [address] [place] [address] Kiel Vasquez MD [address] [place] [address] [facility] [address] [place] [address] Jesse Lackey-fib 07/21/2024 9:53 AM SOLID CENTER W[facility]ER - 07/21/2024 11:46 AM SOLID CENTER WINDER Surgery [facility] Director Hospice Operations [address] [place] [address] Kiel Vasquez MD [address] [place] [address] [address] [place] [address] Left atrial appendage closure percutaneous 07/28/2024 8:30 AM SOLID CENTER WINDER Office Visit [facility] Oncology and Hematology - [place] [address] [facility] [address] [place] [address] Nahid Hickman MD [address] [facility] [address] [place] [phone] 09/09/2024 1:00 PM CDT Office Visit [facility] Heart and Vascular At [address] [place] [address] Kiel Vasquez MD [address] [place] [address] 2014 [place] [address] 12/16/2024 11:00 AM CDT Office Visit [facility] HEART AND VASCULAR EP AT [address] [place] [address] Demetrius Bowling DNP [address] [place] [address] [address] [place] [address] 02/05/2025 10:45 AM CDT Telephone Check Up [facility] Heart and Vascular At [address] [place] [address] 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 FNP [address] [place] [phone] documented as of this encounter Visit Diagnoses Not on filedocumented in this encounter Care Teams Criminal Investigator Customs Relationship Specialty Start Date End Date Aliza Bain MD [address] [place] [address] PCP - General Family Practice 07/29/20 11/21/21 documented as of this encounter
--- OUTSIDE RECORDS SUMMARY | 2024-07-01 00:45 | XMS_ITS | Encounter Summary ---
Author Organization [facility] Address [address] [place] [address] Care Team Providers Care Route Sales Delivery Driver Name Role Phone Aliza Bain MD Primary Care Provider Reason for Visit * Auth/Cert Specialty Diagnoses / Procedures Referred By Contac t Referred To Contact Diagnoses RIGHT LUNG CA Edinson Correa MD [address] [facility] [address] [place] [address] Referral ID Status Reason Start Date Expiration Date Visits Re quested Visits Authorized [id number] 08/18/2020 1 1 Encounter Details Date Type Department Care Team (Late st Contact Info) Description 08/31/2020 6:37 AM CDT - 08/31/2020 10:23 AM CDT Surgery [facility] Operating Room [address] [place] [address] Edinson Correa MD [address] [facility] [address] [place] [address] THORACOTOMY Surgery Details Date/Time Status Location OR Service Patient Class Case Class Case Type Trauma Case? 08/31/2020 6:37 AM Posted [facility] OR HH OR 03 Cardiovascular Surgery Admit Elective No Panel 1 Procedure LRB Anes Op Region Wound Class Comments THORACOTOMY Right General Chest Clean-I LUNG LOBECTOMY Right General Chest Clean-I Surgeon Surgeon Role Service Panel Edinson Correa MD Primary Cardiovascular 1 Case Notes MEDICARE [id number] PER ONLINE CPT 70578 documented in this encounter Social History Tobacco [...] and Family Not on file 07/29/2020 Attends Jew Services Not on file 07/29 Do you [...] Sign Reading Time Taken Comments Blood Pressure 133/46 08/31/2020 10:15 AM CDT Pulse 52 08/31/2020 10:15 AM CDT Temperature 36.1 ??C (97 ??F) 08/31/2020 9:10 AM CDT Respiratory Rate 13 08/31/2020 10:15 AM CDT Oxygen Saturation 100% 08/31/2020 10:15 AM CDT Inhaled Oxygen Concentration - - Weight 66.7 kg (147 lb 2 oz) 08/31/2020 6:28 AM CDT Height 161.3 cm (5' 3.5 ) 08/31/2020 6:28 AM CDT Body Mass Index 28.46 08/31/2020 6:28 AM CDT documented in this encounter Discharge Summaries * Nicole Rivero PA - 09/06/2020 9:58 AM CDT CTS Discharge Summary Zee Celis [id number] PRIMARY CARE PHYSICIAN: Aliza Bain MD Admission [...] THORACOTOMY performed by Edinson Correa MD at [facility] OR ??? HX TONSILLECTOMY ??? HX TRIGGER FINGER REPAIR ??? DE RMVL LUNG OTHER THAN PNEUMONECTOMY 1 LOBE LOBECT Right 08/31/2020 LUNG LOBECTOMY performed by Edinson Correa MD at [facility] OR Procedures: Procedure(s) and Anesthesia Type: * [...] Pulse: 83 (!) 106 85 95 Resp: Temp: 98.4 ??F (36.9 ??C) 98.1 ??F [...] lower lobe infiltrate and effusion. DICTATION LOCATION: [address] XR CHEST PA OR AP 1 VW Narrative CHEST SINGLE VIEW DATE: 09/04/2020 6:00 AM DICTATION LOCATION: Location 1 - [facility] HISTORY: Postoperative evaluation. TECHNIQUE: Single portable view [...] Your Medications These medications were sent to [address] [facility] [address] Hours: Retail 8 AM - 12 AM [...] not included. [facility] [address] [facility] [address] [place] [address] Dr. Yulia Correa Office # [phone](nurse line ext. [phone]) Please call the office from 8:30-4:30 M-F for questions/concerns. After hours, our office number is forwarded to the exchange. Or sign up for Mobile-XL at [email or web address] to directly email our staff. PROCEDURE: Right [...] staff about the Smoking Cessation program that [facility] has to offer. Weaning off Gabapentin (Nerve [...] days of your appointment time @ any [facility] facility with Radiology. The chest x-ray has been ordered, and you do not need an appointment. Chronic conditions will be addressed by Aliza Bain MD. Please follow-up with Aliza Bain MD in the next 4 weeks. We encourage you to enroll in: at [email or web address]. It is a valuable tool to manage your healthcare needs. [email or web address] Expires: 10/27/2020 5:29 PM documented in this [...] Final Discharge Arrangements Services Arranged For Discharge Home health Agency Name [facility] Service Agency Contact Name Paco Agency [facility] arranged DC orders/Summary faxed. Declining WWR Katya Simeon RN/[facility] [phone] * Nicole Rivero PA - 09/06/2020 9:47 [...] lobe infiltrate and effusion. DICTATION LOCATION: Location [address] [place] [address] XR CHEST PA OR AP 1 VW Narrative CHEST SINGLE VIEW DATE: 09/04/2020 6:00 AM DICTATION LOCATION: Location [address] [place] [address] HISTORY: Postoperative evaluation. TECHNIQUE: Single portable view [...] VW DATE: 09/05/2020 5:21 AM DICTATION LOCATION: [address] HISTORY: Postoperative evaluation. TECHNIQUE: Two views [...] VIEW DATE: 09/04/2020 6:00 AM DICTATION LOCATION: [address] HISTORY: Postoperative evaluation. TECHNIQUE: Single portable [...] than 24 hours. Pulmonary toilet Mobilize Plan 3/20/21 ?? Alert active oriented x3, no major [...] Villanueva MD - 09/05/2020 8:59 AM CDT [facility] Heart [facility] Vascular Cardiology Progress Note Subjective: [...] IV amiodarone 09/02 with bolus x 2. [id number] score of 5 2. Lung cancer s/p [...] with questions. Thank you. Neo Villanueva MD [facility] [place] Office: [phone] * Angelia Valera RN - 09/05/2020 7:41 [...] by two coworkers: 1. Dolly GRIFFITHS 2. Rheva STAIR BUILDER ?? The patient does not have existing [...] Villanueva MD - 09/04/2020 11:29 AM CDT [facility] Cardiology Progress Note Subjective: [...] IV amiodarone 09/02 with bolus x 2. [id number] score of 5 2. Lung cancer s/p [...] with questions. Thank you. Neo Villanueva MD [facility] [place] Office: [phone] * Trae Sow MD - 09/04/2020 9:29 [...] the right from previous. DICTATION LOCATION: Location [address] [place] [address] XR CHEST PA OR AP 1 VW Narrative CHEST SINGLE VIEW DATE: 09/04/2020 6:00 AM DICTATION LOCATION: [address] HISTORY: Postoperative evaluation. TECHNIQUE: Single portable [...] oriented x3 Data Review: BMP: Recent Labs 03/17/21 0557 09/02/20 0740 09/03/20 0542 NA 133* [...] from previous. DICTATION LOCATION: Location 1 - [facility] XR CHEST PA OR AP 1 VW [...] grossly stable. DICTATION LOCATION: Location 1 - [facility] Hospital Problems Diagnosis ??? Non-small cell [...] hilum grossly stable. DICTATION LOCATION: Location 1 [facility] Results for orders placed or performed during [...] known malignancy DICTATION LOCATION: Location 9 - [facility] Problems Diagnosis ??? Non-small cell cancer [...] 1:06 PM CDT Home Health Certification for Start of Care Patient: Zee Celis : 1945 Physician Documentation of the Face to Face Encounter (1) I certify that I, a nurse practitioner or physician???s multimedia assistant working with me, had a Face to [...] Celis are medically necessary home health services RESIDENTIAL: my CLINICAL FINDINGS support the need because [...] 1 (08/31/202043) Weight: Weight: (PACU not zeroed) (09/01/206) I & O: Intake/Output Summary (Last 24 hours) at 09/01/2020 08 Last data filed at 09/01/2020 0700 Gross [...] changes in the right hilum. DICTATION LOCATION: [address] Results for orders placed or performed [...] known malignancy DICTATION LOCATION: Location 9 - [facility] Problems Diagnosis ??? Non-small cell cancer [...] and Treatment: ?? HTN- monitor and start FAMILY SERVICE WORKER meds as needed ?? Carotid artery disease- [...] two coworkers: 1. Jonathan GRIFFITHS 2. Felicia PCT The patient does not have existing skin [...] coworker [facility] Riki Score: Riki Score: 23 (08/31/20 1133) [...] consult wound care services. 5. Is a clinical specialist medical device in place?no If yes, remove device/brace/splint to [...] etc.). Wound care consult was not initiated. [facility] Skin Care Injury Prevention and Treatment Protocol [facility] Approved by: [facility] - Medical Executive Committee [...] data in the 24 hours ending 08/31/20 0553 EKG: normal EKG, normal sinus rhythm, unchanged [...] 09/22/2020 5:21 PM CDTAssociated Order(s): HOLTER MONITOR [place], [place] [address] Supply Analyst Report CSN: [id number] DATE OF SERVICE: 09/06/2020 FAX A COPY [...] There are no long pauses. MANUEL:MEDQ DID: [id number] Dictated by: Fred Venegas MD, [facility] documented in this encounter Consult Notes * Karen Heart MD - 09/03/2020 10:13 AM CDTAssociated Order(s): IP CONSULT TO CARDIOLOGY Images from the original note were not included. [facility] Cardiology Consult Louise Marie RN, MSN, BLOOD BANK CREDIT CLERK-C Cardiology consult, requested by Dr. Wahl This consult is for advice and opinion regarding AF Primary Care Physician: Aliza Bain MD Primary Cabinet Worker: None on file History of Present Illness: [...] THORACOTOMY performed by Edinson Correa MD at [facility] OR ??? HX TONSILLECTOMY ??? HX TRIGGER FINGER REPAIR ??? DE RMVL LUNG OTHER THAN PNEUMONECTOMY 1 LOBE LOBECT Right 08/31/2020 LUNG LOBECTOMY performed by Edinson Correa MD at [facility] OR Family History Problem Relation Name Age [...] and Family: Not on file ??? Attends Jew Services: Not on file ??? Active Member [...] slightly increased on the right from previous. [id number] 5 EK09/02/2020 ASSESSMENT: 1. Post operative Afib: rate controlled 70-80's with amiodarone gtt. Patient reports that she has been asymptomatic since going into afib. Does endorse SOB related to her lung CA and lightheadedness that has been occurring for some time. Started on IV amiodarone 09/02 with bolus x 2. [id number] score of 5 2. Lung cancer s/p right thoracotomy and upper lobectomy 3. HTN 4. PAD PLAN: 1. Continue amiodarone for total of ~48 hours, if still hasn't chemically converted then would switch to rate control strategy with metoprolol. 2. Once safe from post operative standpoint recommend Eliquis 5mg po bid for CVA prophylaxis 3. Upon discharge recommend 2 week cardiac cath rn 4. Will arrange follow up with nut tapper The patient was seen and examined by Dr.Robert Sorto. Thank you for this consultation. We will behappy to follow the patient with you. Louise Marie, MSN, BLOOD BANK CREDIT CLERK-C Nurse Practitioner [facility] Secure chat Mon-Fri 8am-4:30 or call on cell phone After 4:30pm or on weekends [phone] ADDENDUM: Patient seen and examined and chart, [...] to review these results. Karen Heart MD, [facility] Inpatient Cardiology Service [facility] documented in this encounter OR Notes * OR Anesthesia - Celeste Maldonado MD - 09/03/2020 10:36 AM CDT 09/03/2020 10:36 AM Regional Anesthesia Service Name: Zee Celis Age: 75 y.o. Sex: female [facility]: [id number] Chief complaint: Post operative pain POD # [...] Service may be contacted by zone phone [phone] during daytime resource hours,or by pager [phone] at any time. If there is no answer within 20 minutes, call [phone] for the Anesthesiologist front desk coordinator. Celeste Maldonado MD Pager: [phone] * OR Anesthesia - Celeste Maldonado MD - 09/02/2020 9:28 AM CDT 09/02/2020 9:29 AM Regional Anesthesia Service Name: Zee Celis Age: 75 y.o. Sex: female [facility]: [id number] Chief complaint: Post operative pain POD # [...] epidural catheter tomorrow. Celeste Maldonado MD Pager: [phone] * Operative Report - Edinson Correa MD - 09/01/2020 7:05 PM CDT [facility] OPERATIVE REPORT - [id number] ----- Date of Procedure: 08/31/2020 Name: ZEE [...] with lymphadenectomy Right Side RUL (lobectomy) ASSISTANTS: Psychologist Research Assistant - KATE PINTO ESTIMATED BLOOD LOSS: < [...] to PACU in stable condition. DISPOSITION: pacu [id number] by EDINSON CORREA MD, 09/01/2020 19:04 CDT (Approved) Created in [facility] * Brief Op Note - Edinson Correa MD - 09/01/2020 6:49 PM CDT Brief Postoperative Note Zee Celis [id number] Pre-operative Diagnosis: RIGHT LUNG CA Post-Op Diagnosis: [...] Implant Name Type Inv. Item Serial No. Contact And Service Clerks Supervisor Lot No. LRB No. Used Action CLIP [employer]IGATING [place] MED [place] [id number] - CSC - [id number] Clip CLIP LIGATING [place]IZ[place] MED TI [id number] - CSC TELEFLEX- WECK CLOSURE SYS [id number] Right 2 Implanted CLIP LIGATING HORIZON LG TI [id number] - CSC - [id number] Clip CLIP LIGATING HORIZON LG TI [id number] - CSCTELEFLEX- WECK CLOSURE SYS [id number] Right 1 Implanted SUTURE TAPE UMBILICAL 30IN U11T - OLD - [id number] SUTURE TAPE UMBILICAL 30IN U11T - OLD [employer] [id number] Right 1 Implanted Estimated Blood Loss: No blood loss documented. Edinson Correa MD * OR Anesthesia - Celeste Maldonado MD - 09/01/2020 8:22 AM CDT 09/01/2020 8:22 AM Regional Anesthesia Service Name: Zee Celis Age: 75 y.o. Sex: female [facility]: [id number] Chief complaint: Post operative pain POD # [...] epidural catheter tomorrow. Celeste Maldonado MD Pager: [phone] * OR Anesthesia - Jason Ray MD - 08/31/2020 7:58 AM CDT [facility] Cardiothoracic Anesthesia Service Epidural [...] no Complications: None Jason Ray MD Pager: [phone] If no answer please call [phone] * Anesthesia PAT Evaluation - Yoel Duenas MD - 08/18/2020 2:56 PM DAY CARE CENTER DIRECTOR Images from the original note were not included. Pre-Procedure Anesthesiology Consultation and Evaluation (PACE) Service 08/18/2020 3:43 PM Name: Zee Celis Age: 75 y.o. Sex: female CSN: [id number] Procedure(s): THORACOTOMY Allergies Allergen Reactions ??? Penicillins Hives Pre-Surgery Instructions: Medication Instructions ??? cyanocobalamin (VITAMIN B-12) 100 mcg tablet Stop taking 1 week prior to surgery ??? calcium-cholecalciferol (OS-SUSNA 500+D) 500 mg(1,250mg) -200 unit tablet Stop [...] was obtained directly from the patient or merchandising representative or caregiver or another available healthcare resource and updated in [facility] EMR. Social History Tobacco Use Smoking Status Former Smoker ??? Packs/day: 0.50 ??? Years: 40.00 ??? Pack years: 20.00 ??? Types: Cigarettes ??? Quit date: 08/19/1999 ??? Years since quittin.0 Smokeless Tobacco Never Used Patient screened for tobacco use and identified as a Non-User of tobacco. REPORT AND NECESSARY FOLLOW-UP History and physical performed in [facility]; tests (ECG, blood work) reviewed. Abnormal Results Found: no Further Testing or Evaluation Required: no, requesting stress test from last few yrs done at [facility] Review: May proceed with procedure/surgery: no, awaiting stress test from [facility] Stop bang score is 3 CAT Narvaez IYoel MD, attest that I have reviewed the Advanced Practitioner's note - including the history, documented findings, assessment, and plan. I agree with the plan as documented except where noted. Yoel Duenas MD CARE CENTER DIRECTOR documented in this encounter Miscellaneous Notes * Care Plan - Maira Curtis RN - 09/06/2020 4:04 PM CDT Pt discharged to home per protocol. Discharge instructions given. Questions encouraged and answered. The patient verbalized understanding. Incisions healing well, no drainage, no erythema, no hernia,no seroma, no swelling, well approximated. All belongings accounted for. Pt taken to [facility] via wheel chair per patient transport. * Care Plan - Margo Lee, Airline Transport Pilot - 09/06/2020 8:27 AM CDT Problem: Physical [...] for home/community mobility. Outcome: Progressing Flowsheets (Taken 09/06/2020803) Mon: X Location: rib cage Pain Rating: [...] care for updates on goals. Zone #: [id number] * Care Plan - Keya Goodman RN [...] of call light. Explained that patient has increasedrisk of fall during hospitalization due to telemetry/monitoring [...] two coworkers: 1. Luciana RN 2. Calixto STAIR BUILDER The patient does not have existing skin [...] care for updates on goals. Zone #: [id number] * Care Plan - Keiry Santoyo RN - 09/03/2020 6:03 AM CDT ? Approved by: [facility] - Medical Executive Committee Approval Date: 10/07/2019 Adult Bowel Routine Protocol- [facility] ORDERS ARE ENTERED ???PER PROTOCOL?? Enter the protocol in the patient???s electronic health record using Localocracy .adultbowelroutineprotocol Patient Population: RN to initiate for [...] two coworkers: 1. Luciana RN 2. Calixto STAIR BUILDER The patient does not have existing skin [...] stated education. * Therapy Evaluation - Sudha Mancilla Physical Therapist - 09/02/2020 11:23 AM CDT [...] content, Agrees to continue Living Situation/Functional Level FAMILY SERVICE WORKER: Pt lives alone in 1-level condo. 20 [...] supervision;Home with home health PT;Home with assistance (09/02/20 1045) Recommendations were made on today's assessment. Additional [...] issued at DC: Front Wheeled Walker (09/02/20 1708) --Patient involved in goal setting: yes Patient goals will be found in the Care Plan section of the medical chart. Zone #: [id number] On weekends--please call [phone] * Care Plan - Katya Simeon RN - 09/02/2020 9:22 AM CDT Problem: Discharge Planning Goal: Identify discharge needs upon admission and through discharge Description: Outcome: Progressing DC plan [facility]. Son and friend can assist on DC Katya Simeon RN/[facility] Management [phone] * Care Plan - Keiry Santoyo RN [...] by Katya Simeon RN Outcome: Progressing Mick [phone] [facility] called who said they can accept patient when ready to DC and to Fax DC orders/Summary to [phone]. Patient choice form signed Katya Simeon RN/[facility] [phone] * Care Plan - Katya Simeon RN - 09/01/2020 10:02 AM CDT Problem: Discharge Planning Goal: Identify discharge needs upon admission and through discharge Description: Outcome: Progressing Dc plan is home with son and friend assist [facility] Katya Simeon RN/[facility] [phone] * Care Plan - Katya Simeon RN - 08/31/2020 4:05 PM CDT Discharge Planning Progressing Initial Discharge Planning Assessment completed. Discussed Care Management's role and Discharge planning. Declining Post Acute facility Discharge Plan: home with son and friend assist vs HHC. HHC referrals sent Patient's specific goal of care is: Patient's Individualized Goal: rest Patient will potentially discharge to a SNF/NH? No Care Management visited with , patient, via: in person. Prior to admission, patient resides at: [facility] Home is 3 level with 6 steps, and 2 rails. Prior to admission, living arrangements: lives alone.Son and friend who is HHC RN can assist on DC Prior to admission, does patient use any of the following DME? No Services in the home: no with no company. Emergency contact(s): Extended Emergency Contact Information Primary Emergency Contact: rylan celis Mobile Relation: Son Preferred language: Bangladeshi Belt Conveyor Drier needed? No Secondary Emergency Contact: sealsashanti Mobile Relation: Granddaughter Preferred language: Bangladeshi Belt Conveyor Drier needed? No POA/Surrogate Decision Maker: bright Celis Patient identified bright Celis as their Primary Caregiver. Patient does want caregiver involved in discharge planning. Caregiver is willing and able to assist with patient's care. Caregiver has not been contacted. Attempted to call but was unavailable LM Insurance coverage verified: Payor: [facility] / Plan: MEDICARE ADVANTAGE HMO / Product Type: Medicare Managed Care / Prescription coverage: yes Preferred Pharmacy verified: [id number] - [place], [place] - [address] Employment Status: Retired Has VA Benefits: no PCP verified as Aliza Bain MD Patient has not had a stay at an acute care hospital in the last 30 days. Recent Falls?: Last Known Fall: No falls Plan for transportation at discharge: bright Celis Patient has a Mobile-XL account: no Patient has a smart device: [...] to follow and assist asneeded. Katya Simeon RN/[facility] [phone] * Care Plan - Sada Berg RN - 08/31/2020 9:18 AM CDT Potential for pain related to surgical/procedural intervention Interventions: Assess level of pain/comfort utilizing verbal/nonverbal pain scales; assess culturalor yazidi indicators attached to pain; administer pain medications [...] st Contact Info) Description 2024 11:00 AM DAY CARE CENTER DIRECTOR Appointment [facility] [address] [facility] [address] [place] [address] [place] [phone] 07/21/2024 9:45 AM DAY CARE CENTER DIRECTOR Appointment [facility] Milanese Knitting Machine Operator [address] [place] [address] Sarbjit Brooks MD [address] [facility] [address] [place] [address] 07/21/2024 9:53 AM DAY CARE CENTER DIRECTOR Hospital Encounter [facility] [employer] Knitting Machine Operator [address] [place] [address] Sarbjit Brooks MD [address] [facility] [address] [place] [address] Paroxysmal A-fib 07/21/2024 9:53 AM DAY CARE CENTER DIRECTOR - 07/21/2024 11:46 AM DAY CARE CENTER DIRECTOR Surgery [facility] Milanese Knitting Machine Operator [address] [place] [address] Sarbjit Brooks MD [address] [facility] [address] [place] [address] Left atrial appendage closure percutaneous 07/28/2024 8:30 AM DAY CARE CENTER DIRECTOR Office Visit [facility] Oncology and Hematology - [address] [phone] Nahid Hickman MD [address] [facility] [address] [place] [address] 09/09/2024 1:00 PM CDT Office Visit [facility] Heart and Vascular At [address] [place] [address] Sarbjit Brooks MD [address] [facility] [address] [place] [address] 12/16/2024 11:00 AM CDT Office Visit [facility] HEART AND VASCULAR EP AT [address] [place] [address] Demetrius Bowling, TRUONG [address] [place] [phone] 02/05/2025 10:45 AM CDT Telephone Check Up [facility] Heart [facility] Vascular At [facility] [address] [facility] [address] [place] [address] 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, CAT [address] [place] [address] documented as of this encounter Procedures Procedure [...] CDT RIGHT LUNG CA Case Notes MEDICARE [id number] PER ONLINE CPT 09649 THORACOTOMY 08/31/2020 6:37 AM CDT RIGHT LUNG CA Case Notes MEDICARE [id number] PER ONLINE CPT 67924 VERIFICATION BLOOD GROUP Stat 08/31/2020 5:22 AM CDT Encounter for blood typing PREPARE RED BLOOD CELLS Routine 08/31/2020 12:17 AM CDT PREPARE RED BLOOD CELLS Routine 08/31/2020 12:17 AM CDT documented in this encounter Results * HOLTER MONITOR (09/22/2020 5:21 PM CDT) Narrative Procedure Note Fred Venegas MD - 09/22/2020 5:21 PM CDT [place], [place] [address] Supply Analyst Report CSN: [id number] DATE OF SERVICE: 09/06/2020 FAX A COPY [...] 6. There are no long pauses. MANUEL:MEDQ DID:[id number] Dictated by: Fred Venegas MD, [facility] Fred Venegas MD CARDIAC SERVICES ORD ERABLES [facility] HEART [facility] VASCULAR CLIA# [id number] [facility], [address] [place] [address] * XR CHEST PA AND LATERAL 2 VW (09/06/2020 4:58 AM CDT) Anatomical Region Laterality Modality Chest Computed Radiogr aphy 09/06/2020 4:58 AM CDT Impressions 09/06/2020 8:51 AM CDT IMPRESSION: Tiny residual right pneumothorax. Right lower lobe infiltrate and effusion. DICTATION LOCATION: Location [address] [place] [address] Narrative 09/06/2020 8:51 AM CDT XR CHEST [...] lower lobe infiltrate and effusion. DICTATION LOCATION: [address] Nicole [facility]S [facility] O RDERABLES [...] DATE: 09/05/2020 5:21 AM DICTATION LOCATION: Location [address] [place] [address] HISTORY: Postoperative evaluation. TECHNIQUE: Two views of [...] DATE: 09/05/2020 5:21 AM DICTATION LOCATION: Location 1 - [facility] HISTORY: Postoperative evaluation. TECHNIQUE: Two views of [...] MAGNESIUM LEVEL (09/04/2020 6:22 AM CDT) Pathologist [facility] MAGNESIUM 2.2 1.6 - 2.4 mg/dL 09/04/2020 7:27 AM CDT [facility] Blood Venipuncture / Unknown 09/04/2020 6:22 AM CDT 09/04/2020 6:52 AM CDT Ashanti Wahl NP CHEMISTRY ORD ERABLES [facility]# [id number] [address] [place] [address] * (ABNORMAL) BASIC METABOLIC PANEL (09/04/2020 6:22 AM CDT) SODIUM 133(L) 136 - 145 mmol/L 09/04/2020 7:27 AM CDT [facility] POTASSIUM 4.3 3.5 - 5.0 mmol/L 09/04/2020 7:27 AM CDT [facility] CHLORIDE 100 98 - 107 mmol/L 09/04/2020 7:27 AM CDT [facility] CO2 26 22 - 29 mmol/L 09/04/2020 7:27 AM [facility] SERVICES [facility] CALCIUM 8.4(L) 8.6 - 10.2 mg/dL 09/04/2020 7:27 AM [facility] BUN 16 8 - 23 mg/dL 09/04/2020 7:27 AM [facility] [place] Department of Education [facility] CREATININE 0.72 0.51 - 0.95 mg/dL 09/04/2020 7:27 AM T [facility] Comment:The GFR result is no t clinically significant on patients <18 or >70 years of age. GLUCOSE 113(H) 74 - 99 mg/dL 09/04/2020 7:27 AM [facility] [place] Department of Education [facility] GFR >60 mL/min/1.7 3 sq meter 09/04/2020 7:27 AM [facility] Comment: eGFR has not been validated for [...] 3 sq meter 09/04/2020 7:27 AM T [facility] SERVICES [facility] ANION GAP 7(L) 8 - 16 mmol/L 09/04/2020 7:27 AM [facility] Blood Venipuncture / Unknown 09/04/2020 6:22 AM CDT 09/04/2020 6:52 AM CDT Ashanti Wahl NP CHEMISTRY ORD ERABLES [facility] [place] Department of [employer] [facility] CLIA# [id number] [address] [place] [address] * XR CHEST PA OR AP 1 VW (09/04/2020 6:00 AM CDT) Anatomical Region Laterality Modality Chest Computed Radiogr aphy 09/04/2020 6:24 AM CDT Impressions 09/04/2020 8:39 AM CDT IMPRESSION: 1. Persistent right-sided pneumothorax that is unchanged. Narrative 09/04/2020 8:39 AM CDT CHEST SINGLE VIEW DATE: 09/04/2020 6:00 AM DICTATION LOCATION: [address] HISTORY: Postoperative evaluation. TECHNIQUE: Single portable [...] DATE: 09/04/2020 6:00 AM DICTATION LOCATION: Location [address] [place] [address] HISTORY: Postoperative evaluation. TECHNIQUE: Single portable view [...] - 2.4 mg/dL 09/03/2020 7:15 AM CDT [facility] SERVICES [facility] Blood Venipuncture / Unknown 09/03/2020 5:42 AM CDT 09/03/2020 6:39 AM CDT Ashanti Wahl [employer] CHEMISTRY ORD ERABLES [facility] SERVICES - [facility]# [id number] [address] [place] [address] * (ABNORMAL) BASIC METABOLIC PANEL (09/03/2020 5:42 AM CDT) SODIUM 130(L) 136 - 145 mmol/L 09/03/2020 7:15 AM T [facility] POTASSIUM 4.4 3.5 - 5.0 mmol/L 09/03/2020 7:15 AM T [facility] - . [facility] CHLORIDE 95(L) 98 - 107 mmol/L 09/03/2020 7:15 AM T [facility] CO2 26 22 - 29 mmol/L 09/03/2020 7:15 AM T [facility] CALCIUM 8.4(L) 8.6 - 10.2 mg/dL 09/03/2020 7:15 AM T [facility] BUN 17 8 - 23 mg/dL 09/03/2020 7:15 AM T [facility] - . [facility] CREATININE 0.81 0.51 - 0.95 mg/dL 09/03/2020 7:15 AM T [facility] Comment:The GFR result is no t clinically significant on patients <18 or >70 years of age. GLUCOSE 100(H) 74 - 99 mg/dL 09/03/2020 7:15 AM T [facility] - . [facility] GFR >60 mL/min/1.7 3 sq meter 09/03/2020 7:15 AM T [employer] LABORATORY SERVICES [facility] Comment: eGFR has not been validated for [...] mL/min/1.7 3 sq meter 09/03/2020 7:15 AM CDT [facility] ANION GAP 9 8 - 16 mmol/L 09/03/2020 7:15 AM CDT [facility] Blood Venipuncture / Unknown 09/03/2020 5:42 AM CDT 09/03/2020 6:39 AM CDT Ashanti Wahl [employer] CHEMISTRY ORD ERABLES [facility] CLIA# [id number] [address] [place] [address] * XR CHEST PA AND LATERAL 2 [...] from previous. DICTATION LOCATION: Location 1 - [facility] Narrative 09/03/2020 8:01 AM CDT CHEST 2 [...] from previous. DICTATION LOCATION: Location 1 - [facility] Ashanti Wahl NP DIAGNOSTIC IM AGING ORDERABLES * MAGNESIUM LEVEL (09/02/2020 7:40 AM CDT) MAGNESIUM 2.1 1.6 - 2.4 mg/dL 09/02/2020 10:03 AM CDT [facility] Blood Venipuncture / Unknown 09/02/2020 7:40 AM CDT 09/02/2020 8:06 AM CDT Nicole SIMS CHEMISTRY ORDERABLES [facility] SERVICES [facility]# [id number] [address] [place] [address] * (ABNORMAL) BASIC METABOLIC PANEL (09/02/2020 7:40 AM CDT) SODIUM 132(L) 136 - 145 mmol/L 09/02/2020 10:03 AM [facility] - . [facility] POTASSIUM 3.7 3.5 - 5.0 mmol/L 09/02/2020 10:03 AM [facility] - . [facility] CHLORIDE 97(L) 98 - 107 mmol/L 09/02/2020 10:03 AM [facility] [place] Department of Education [facility] [place] CO2 26 22 - 29 mmol/L 09/02/2020 10:03 AM [facility]. [facility] CALCIUM 8.3(L) 8.6 - 10.2 mg/dL 09/02/2020 10:03 AM [facility]. [facility] BUN 20 8 - 23 mg/dL 09/02/2020 10:03 AM [facility]. [facility] CREATININE 0.99(H) 0.51 - 0.95 mg/dL 09/02/2020 10:03 AM [facility] Comment:The GFR result is no t clinically significant on patients <18 or >70 years of age. GLUCOSE 99 74 - 99 mg/dL 09/02/2020 10:03 AM [facility]. [facility] GFR 55 mL/min/1.7 3 sq meter 09/02/2020 10:03 AM [facility] Comment: eGFR has not been validated for [...] mL/min/1.7 3 sq meter 09/02/2020 10:03 AM CDT [facility] ANION GAP 9 8 - 16 mmol/L 09/02/2020 10:03 AM CDT [facility] Blood Venipuncture / Unknown 09/02/2020 7:40 AM CDT 09/02/2020 8:06 AM CDT Ashanti Wahl [employer] CHEMISTRY ORD ERABLES [facility] CLIA# [id number] [address] [place] [address] * XR CHEST PA OR AP 1 [...] grossly stable. DICTATION LOCATION: Location 1 - [facility] Narrative 09/02/2020 7:55 AM CDT CHEST SINGLE [...] grossly stable. DICTATION LOCATION: Location 1 - [facility] Ashanti Wahl NP DIAGNOSTIC IM AGING ORDERABLES * EKG 12-LEAD (09/02/2020 12:28 AM CDT) 09/02/2020 12:2 8 AM CDT Narrative INTERFACE SYSTEM - 09/02/2020 8:55 AM CDT ? Stationary ECG Study ? [facility] ? Test Date: ?09/02/2020 12:28 AM Pat Name: ? ZEE CELIS ? Department: ?? 51 ?Room: ? 4075 1 Gender: ? F ?[place] Operator: ?? LANGD2 : ?1945 ? Requested By: EDINSON CORREA Order Number: [id number] ?Reading MD: ?? Fred Venegas ? Measurements Intervals ?V[place] ? Rate: ? 105 ?P: ? DE: ?QRS: ?-3 QRSD: ? 85 ? T: ?27 QT: ? 326 ? QTc: ?431 ? Interpretive Statements ? Atrial fibrillation 105- new from nsr 08/18/20 NSSTT Electronically Signed On 09-02-2020 8:55:32 CDT by Fred Venegas Procedure Note Fred Venegas MD - 09/02/2020 Stationary ECG Study [facility] Test Date: 09/02/2020 12:28 AM Pat Name: ZEE CELIS Department: 51 Room: [facility]5 1 Gender: F [place] Operator: WINNIE : 1945 Requested By: EDINSON CORREA Order Number: [id number] Reading MD: Fred Venegas Measurements Intervals Vancleave Rate: 105 P: DE: QRS: -3 QRSD: 85 T: 27 QT: 326 QTc: 431 Interpretive Statements Atrial fibrillation 105- new from nsr 08/18/20 NSSTT Electronically Signed On 09-02-2020 8:55:32 CDT by Fred Venegas Edinson Correa MD ECG ORDERABLES INTERFACE SYSTEM Refer to clinic/hospital department * (ABNORMAL) MANUAL DIFFERENTIAL (09/01/2020 5:57 AM CDT) SEGMENTED NEUTROPHILS 67 % 09/01/2020 7:56 AM CDT [facility] SERVICES [facility] LYMPHOCYTES RELATIVE 6(L) 43 - 53 % 09/01/2020 7:56 AM CDT [facility] ATYPICAL LYMPHOCYTES RELATIVE 4 0 - 5 % 09/01/2020 7:56 AM CDT [facility] - . [facility] MONOCYTES RELATIVE 24 % 09/01/2020 7:56 AM CDT [facility] NEUTROPHILS ABSOLUTE COUNT 8.67(H) 1.90 - 7.00 K/uL 09/01/2020 7:56 AM CDT [facility] - . [facility] LYMPHOCYTES ABSOLUTE 0.74 0.70 - 4.50 K/uL 09/01/2020 7:56 AM CDT [facility] SERVICES - [facility] MONOCYTES ABSOLUTE 3.10(H) 0.10 - 1.30 K/uL 09/01/2020 7:56 AM T [facility] SERVICES - [facility] TOTAL CELLS COUNTED IN DIFF 105 09/01/2020 7:56 AM T [facility] - [facility] RBC MORPHOLOGY abnormal 09/01/2020 7:56 AM CDT [facility] - [facility] PLATELET EST. Consistent w Count 09/01/2020 7:56 AM T [facility] - [facility] ANISOCYTOSIS 1+ /hpf 09/01/2020 7:56 AM CDT [facility] - [facility] Blood Venipuncture / Unknown 09/01/2020 5:57 AM CDT 09/01/2020 6:01 AM CDT Arash SIMS HEMATOLOGY ORDERABLE S COM [facility] SERVICES - [facility]# [id number] [address] [place] [address] * (ABNORMAL) BASIC METABOLIC PANEL (09/01/2020 5:57 AM CDT) SODIUM 133(L) 136 - 145 mmol/L 09/01/2020 6:44 AM T [facility] - [facility] POTASSIUM 3.9 3.5 - 5.0 mmol/L 09/01/2020 6:44 AM T [facility] - [facility] CHLORIDE 98 98 - 107 mmol/L 09/01/2020 6:44 AM T [facility] - [facility] CO2 26 22 - 29 mmol/L 09/01/2020 6:44 AM T [facility] - [facility] CALCIUM 8.4(L) 8.6 - 10.2 mg/dL 09/01/2020 6:44 AM T [facility] - [facility] BUN 25(H) 8 - 23 mg/dL 09/01/2020 6:44 AM T [facility] SERVICES - [facility] CREATININE 1.06(H) 0.51 - 0.95 mg/dL 09/01/2020 6:44 AM CDT [employer] LABORATORY SERVICES [facility] Comment:The GFR result is no t clinically significant on patients <18 or >70 years of age. GLUCOSE 103(H) 74 - 99 mg/dL 09/01/2020 6:44 AM T [facility] GFR 50 mL/min/1.7 3 sq meter 09/01/2020 6:44 AM T [facility] [place] Department of Education [facility] Comment: eGFR has not been validated [...] mL/min/1.7 3 sq meter 09/01/2020 6:44 AM T [facility] ANION GAP 9 8 - 16 mmol/L 09/01/2020 6:44 AM T [facility] [place] Department of [employer] [facility] Blood Venipuncture / Unknown 09/01/2020 5:57 AM CDT 09/01/2020 6:01 AM CDT Arash SIMS CHEMISTRY ORDERABLES [facility] [place] Department of [employer] [facility]# [id number] [address] [place] [address] [facility] [place] [address] * (ABNORMAL) CBC WITH DIFFERENTIAL (09/01/2020 5:57 AM CDT) WBC 13.0(H) 4.0 - 9.8 K/uL 09/01/2020 6:14 AM CDT [facility] RBC 3.13(L) 3.90 - 4.90 M/uL 09/01/2020 6:14 AM T [employer] LABORATORY [facility] HEMOGLOBIN 9.6(L) 11.8 - 14.8 g/dL 09/01/2020 6:14 AM CDT [facility] LABORATORY SERVICES - [facility] HEMATOCRIT 29.3(L) 35.5 - 44.0 % 09/01/2020 6:14 AM CDT [facility]ATORY SERVICES - [facility] MCV 93.6 82.0 - 99.0 fL 09/01/2020 6:14 AM CDT [facility] SERVICES - [facility] MCH 30.7 27.2 - 32.6 pg 09/01/2020 6:14 AM CDT [employer] LABORATORY SERVICES - [facility] MCHC 32.8 31.5 - 35.5 g/dL 09/01/2020 6:14 AM CDT [employer] [facility]ORATORY SERVICES - [facility] RDW 13.2 11.5 - 14.5 % 09/01/2020 6:14 AM CDT [facility] SERVICES - [facility] RDW-STDEV 44.8 37.1 - 48.7 fL 09/01/2020 6:14 AM CDT [facility] SERVICES - [facility] PLATELETS 166 140 - 350 K/uL 09/01/2020 6:14 AM CDT [employer] LABORATORY SERVICES - [facility] MPV 10.9 9.3 - 12.4 fL 09/01/2020 6:14 AM CDT [facility] SERVICES - [facility] Blood Venipuncture / Unknown 09/01/2020 5:57 AM CDT 09/01/2020 6:01 AM CDT Arash SIMS HEMATOLOGY ORDERABLE S [facility] [place] Department of Education SERVICES [facility]# [id number] [address] [place] [address] * XR CHEST PA OR AP 1 [...] in the right hilum. DICTATION LOCATION: Location [address] [place] [address] Narrative 09/01/2020 7:34 AM CDT CHEST, FRONTAL [...] in the right hilum. DICTATION LOCATION: Location [address] [place] [address] Arash SIMS DIAGNOSTIC IMAGING O RDERABLES * (ABNORMAL) POC GLUCOSE (08/31/2020 7:24 PM CDT) GLUCOSE POC 141(H) 74 - 99 mg/dL 08/31/2020 7:24 PM CDT [facility] REGULATORY AND COMPLIANCE TECHNICIAN NAME POC JONATHAN GUZMAN 08/31/2020 7:24 PM CDT [facility] Blood, whole 08/31/2020 7:24 PM CDT 08/31/2020 7:32 PM CDT Edinson Correa MD POINT OF CARE TESTIN G [facility] CLIA# [id number] [address] [address] * XR CHEST PA OR AP 1 VW (08/31/2020 10:15 AM CDT) Anatomical Region Laterality Modality Chest Computed Radiogr aphy 08/31/2020 10:1 5 AM CDT Impressions 08/31/2020 12:47 PM CDT IMPRESSION: 1. Small right-sided pneumothorax and moderate subcutaneous emphysema. Findings conveyed to clinical service by lead neurodiagnostic technologist per protocol. DICTATION LOCATION: Location [address] [place] [address] Narrative 08/31/2020 12:47 PM CDT CHEST SINGLE [...] emphysema. Findings conveyed to clinical service by lead neurodiagnostic technologist per protocol. DICTATION LOCATION: Location [address] [place] [address] Edinson Correa MD DIAGNOSTIC IMAGING O RDERABLES * PATHOLOGY (08/31/2020 7:58 AM CDT) CASE REPORT Surgical Pathology Report ? Case: [id number] ? Authorizing Provider: ??Edinson Correa, ?Collected: ? 08/31/2020 07:58 AM ? Ordering Location: ? [facility] [address] ?Received: ?08/31/2020 02:16 PM ? [facility] Operating [facility] ? Pathologist: ? Benny, Erickson R, DO ? Specimens: ?? A) - Lymph node, Level 10 ? B) - Lymph node, Level 11 ? C) - Lung, RUL ? D) - Lymph node, Level 4 ? E) - Lymph node, Level 7 ? F) - Lymph node, Level 8 ? 09/03/2020 3:[address] [facility] FINAL DIAGNOSIS Lymph node, level 10, biopsy: [...] carcinoma identified (0/1). 09/03/2020 3:43 PM CDT [facility] [place] Department of [place] [facility] S DESCRIPTION Received are 6 containers labeled [...] distinct lesions. No lymph nodes are identified. Applications Support Engineer sections are submitted as follows: C1-vascular margins, en face; C2-bronchial margin, en face; M9-P8-prfdgozn of mass; C9-green inked margin closest to [...] submitted in cassette F1. 09/03/2020 3:43 PM [employer] [facility] MICROSCOPIC DESCRIPTION The slides are labeled [id number] and Zee Celis. Sections of the level [...] metastatic carcinoma is identified. 09/03/2020 3:43 PM [employer] [facility] OPERATIVE PROCEDURE 1: THORACOTOMY 2: LUNG LOBECTOMY 09/03/2020 3:43 PM [employer] [facility] CLINICAL INFORMATION RIGHT LUNG CA 09/03/2020 3:[address] [facility] SYNOPTIC REPORT LUNG ??(LUNG: RESECTION - All [...] Nodes (pN): ?pN0 09/03/2020 3:[address] [facility] COMMENT Special stain and/or immunohistochemical results are interpreted with controls that demonstrate appropriate staining reactions. Note on use of immunocytochemistry reagents: This test was developed and its performance characteristics determined by [facility], Department of Laboratory Medicine. It has not [...] part or completely in the following laboratories: [facility], CLIA #[id number] [address] [place] [id number] [place] [address], CLIA #[id number] [address] [place] [address]/[place], CLIA #[id number] [place] [address]. 09/03/2020 3:[address] [facility] Tissue ENTIRE LYMPH NODE / Unknown Collection [...] CDT Edinson Correa MD PATHOLOGY/CYTOLOGY O RDERABLES Performing Organization Address [facility]/ZIP Co de Phone Number [facility] [place] Department of Education [facility]# [id number] [address] [place] [address] * POC LACTIC ACID (08/31/2020 7:31 AM CDT) LACTIC ACID POC 0.9 <=2.0 mmol/L 08/31/2020 7:31 AM CDT [employer] LABORATORY SERVICES - [facility] SPECIMEN SOURCE, GASES POC Arterial 08/31/2020 7:31 AM CDT [employer] LABORATORY SERVICES [facility] COMMENT, GASES POC RN/MD NOTIFIED 08/31/2020 7:31 AM CDT [employer] LABORATORY SERVICES [facility] REGULATORY AND COMPLIANCE TECHNICIAN NAME JAZMYN JOSUE ESQUIVEL 08/31/2020 7:31 AM CDT [employer] LABORATORY SERVICES [facility] Blood 08/31/2020 7:31 AM CDT 08/31/2020 7:32 AM CDT Edinson Correa MD POINT OF CARE TESTIN G Performing Organization Address [facility] Co de Phone Number [facility] [place] Department [employer] [facility]# [id number] [address] [place] [address] * (ABNORMAL) BLOOD GAS,(INCL. H+H, LYTES, GLUC) (08/31/2020 7:31 AM CDT) PH BLOOD POC 7.46(H) 7.35 - 7.45 08/31/2020 7:31 AM CDT [employer] LABORATORY SERVICES [facility] PCO2 POC 37 35 - 48 mm Hg 08/31/2020 7:31 AM CDT [employer] LABORATORY SERVICES [facility] PO2 POC 503(H) 83 - 108 mm Hg 08/31/2020 7:31 AM CDT [employer] LABORATORY SERVICES [facility] TCO2 (CALC) POC 27(H) 19 - 24 mmol/L 08/31/2020 7:31 AM [facility] HCO3 (CALC) POC 26 22 - 26 mmol/L 08/31/2020 7:31 AM [facility] O2 SATURATION POC 100(H) 94 - 98 % 08/31/2020 7:31 AM [facility] BASE EXCESS POC 2 -2 - 3 mmol/L 08/31/2020 7:31 AM [facility] HEMOGLOBIN POC 10.2(L) 11.8 - 14.8 g/dL 08/31/2020 7:31 AM [facility] HEMATOCRIT POC 31(L) 35 - 44 % 08/31/2020 7:31 AM [facility] Comment:Estimated Value GLUCOSE POC 109(H) 74 - 99 mg/dL 08/31/2020 7:31 AM [facility] SODIUM POC 136 135 - 145 mmol/L 08/31/2020 7:31 AM [facility] POTASSIUM POC 3.2(L) 3.5 - 4.9 mmol/L 08/31/2020 7:31 AM [facility] CALCIUM IONIZED POC 4.7(L) 4.8 - 5.2 mg/dL 08/31/2020 7:31 AM [facility] PH TEMP CORRECT 7.46(H) 7.35 - 7.45 08/31/2020 7:31 AM [facility] PCO2 TEMP CORRECT 37 35 - 48 mm Hg 08/31/2020 7:31 AM [facility] PO2 TEMP CORRECT 503(H) 83 - 108 mm Hg 08/31/2020 7:31 AM [facility] SPECIMEN SOURCE, GASES POC Arterial 08/31/2020 7:31 AM [facility] PATIENT'S TEMPERATURE POC 37.0 08/31/2020 7:31 AM [facility] COMMENT, GASES POC RN/MD NOTIFIED 08/31/2020 7:31 AM CDT [facility] - [facility] REGULATORY AND COMPLIANCE TECHNICIAN NAME JOSUE GARCIA 08/31/2020 7:31 AM CDT [facility] - . [facility] Blood, arterial 08/31/2020 7 :31 AM CDT 08/31/2020 7:32 AM CDT Edinson Correa MD ABG ORDERABLES [facility] - [facility]# [id number] [address] [place] [id number] * VERIFICATION BLOOD GROUP (08/31/2020 5:22 AM CDT) ABO GROUP O 08/31/2020 6:05 AM CDT [facility] -- [facility] RH (D) TYPE Positive 08/31/2020 6:05 AM CDT [facility] -- [facility] Blood Venipuncture / Unknown 08/31/2020 5:22 AM CDT 08/31/2020 5:27 AM CDT Maira Whitmore MD [facility] Performing Organization Address City/[facility]/ZIP Co de Phone Number [facility] [id number] [address] [place] [id number] * PREPARE RED BLOOD CELLS (08/31/2020 12:17 AM CDT) COMPONENT TYPE [id number] [facility] -- [facility] COMPONENT IDENTIFICATION [id number] [facility] LAB[facility]ATORY SERVICES [facility] ABO O [facility] RH POS [facility] COMPONENT STATUS Returned [facility]ATORY SERVICES [facility] [facility] EXPIRATION DATE/TIME [id number] [facility] LAB[facility]ATORY [facility] -- [facility] COMPONENT CODING SYSTEM 5100 [facility] 08/31/2020 12:1 7 AM CDT Edinson Correa MD LAB TRANSFUSION JAMES DIANA [facility]ORY [facility] -- [place] CLIA# [id number] [address] [place] [address] * PREPARE RED BLOOD CELLS (08/31/2020 12:17 AM CDT) Pathologist [facility] COMPONENT TYPE [id number] [facility] LAB[facility]ATORY SERVICES [facility] [facility] IDENTIFICATION [id number] [facility] LABORATORY SERVICES -- [facility] ABO O [facility] RH POS [facility] COMPONENT STATUS Returned [facility] LAB[facility]ATORY SERVICES [facility] EXPIRATION DATE/TIME [id number] [facility]ATORY SERVICES -- [facility] COMPONENT CODING SYSTEM 5100 [facility] 08/31/2020 12:1 7 AM CDT Edinson Correa MD LAB TRANSFUSION JAMES DIANA Performing Organization Address [facility] Co de Phone Number [facility]ORY [facility] -- [facility] CLIA# [id number] [address] [place] [address] documented in this encounter Visit Diagnoses Not [...] Given 09/05/2020 5:24 PM CDT 650 mg apixaban (ELIQUIS) tablet 5 mg 5 mg, Oral, TWO TIMES DAILY, First dose on Sun09/03/20 at 1430, Until Discontinued, Routine, Indication: Non-valvular A Fib Given 09/06/2020 8:47 AM CDT 5 mg Given 09/05/2020 9:00 PM CDT 5 mg Given 09/05/2020 10:10 AM CDT 5 mg famotidine (PEPCID) tablet 20 mg 20 [...] Given 09/05/2020 9:00 PM CDT 100 mg metoprolol tartrate (LOPRESSOR) tablet 25 mg [...] IV, EVERY 6 HOURS PRN, Starting on Tu08/31/20 at 1129, Until Sun09/06/20 at 1855, Nausea/Emesis, [...] Oral, EVERY 4 HOURS PRN, Starting on 09/04/20 at 0724, Until Sun09/06/20 at 1855, Pain (See admin instructions), Routine, Post-op - Floor oxyCODONE (ROXICODONE) tablet 5 mg 5 mg, Oral, EVERY 6 HOURS PRN, Starting on 09/04/20 at 0724, Until Sun09/06/20 at 1855, Pain [...] Given 09/03/2020 8:17 PM CDT 17 Grams sennosides-docusate sodium (SENNA-S) 8.6-50 mg per tablet [...] Given 09/03/2020 8:24 PM CDT 50 mg documented in this encounter Active and [...] Keya Goodman, TUNDE)0552 (Given - Provider: Keya Goodman, TUNDE)1200 (Refused - Provider: Maira Curtis RN) apixaban (ELIQUIS) tablet 5 mg 5 mg, Oral, TWO TIMES DAILY, First dose on Sun09/03/20 at 1430, Until Discontinued, Routine, Indication: Non-valvular A Fib 0046 (Given - Provider: Angelia Valera RN)0849 (Given - Provider: Dolly Ji RN)2041 (Given - Provider: Angelia Valera RN) 1010 (Given - Provider: Hilaria Ferguson, TUNDE)2100 (Given - Provider: Keya Goodman, RN) 0847 (Given - Provider: Maira Curtis RN) famotidine (PEPCID) tablet 20 mg 20 mg, Oral, TWO TIMES DAILY, First dose on Sun08/31/20 at 1200, Until Discontinued, Routine, Post-op - Floor 0853 (Given - Provider: Dolly Ji RN)2041 (Given - Provider: Angelia Valera RN) 1011 (Given - Provider: Hilaria Ferguson RN)2100 (Given - Provider: Keya Goodman, TUNDE) 0847 (Given - Provider: Maira Curtis RN) gabapentin (NEURONTIN) capsule 100 mg 100 mg, Oral, THREE TIMES DAILY, First dose on Sun08/31/20 at 1300, Until Discontinued, Routine 0849 (Given - Provider: Dolly Ji RN)1544 (Given - Provider: Dolly iJ RN)2041 (Given - Provider: Angelia Valera RN) 1011 [...] RN)2100 (Given - Provider: Keya Goodman RN) 0846 (Given - Provider: Maira Curtis, TUNDE - Comment: 146/80) naloxone (NARCAN) 0.4 mg/mL [...] Valera RN) 1009 (Given - Provider: Hilaria Ferguson RN)2100 (Not Given - Provider: Keya Goodman RN - Reason: Patient condition - Comment: BM today) 0900 (Refused - Provider: Maira Curtis RN) sennosides-docusate sodium (SENNA-S) 8.6-50 mg per tablet 2 Tablet 2 Tablet, Oral, TWO TIMES DAILY, First dose on Sun09/03/20 at 0900, Until Discontinued, Routine 0849 (Given - Provider: Dolly Ji RN)2100 (Refused - Provider: Angelia Valera RN) 1011 (Given - Provider: Hilaria Ferguson, TUNDE)2100 [...] PRN, Starting on Sun09/04/20 at 0724, Until 09/06/20 at 1855, Pain [...] at 1855, Pain (See admin instructions), Routine 0421 (Given - Provider: Angelia Valera RN)2053 (Given - Provider: Angelia Valera RN) documented in this encounter Care Teams Route Sales Delivery Driver Relationship Specialty Start Date End Date Aliza Bain MD [address] [place] [address] PCP - General Family Practice 07/29/20 11/21/21 documented as of this encounter
--- OUTSIDE RECORDS SUMMARY | 2024-07-01 00:45 | XMS_ITS | Encounter Summary ---
Author Organization [facility] Address [address] [place] [address] Care Team Providers Care Peoplesoft Crm Developer Name Role Phone Aliza Bain MD Primary Care Provider Encounter Details Date Type Department Care Team (Latest Contact Info) Description 08/18/2020 3:49 PM BAND LINING BANDER - 08/18/2020 11:[address] [facility] Hospital Encounter [facility] Imaging Services Medical [place] [address] [place] [address] Edinson Ferrell MD [address] [facility] [address] [place] [address] Discharge Disposition: Home or Self [...] and Family Not on file 07/29/2020 Attends [employer] Not on file 07/29 Do you [...] COVID-19? No / Unsure 08/18/2020 12:05 PM BAND LINING BANDER documented as of this encounter Medications at [...] st Contact Info) Description 2024 11:00 AM BAND LINING BANDER Appointment [facility] [address] [place] [address] 07/21/2024 9:45 AM BAND LINING BANDER Appointment [facility] Leaf Blender [address] [place] [address] Kiel Vasquez MD [address] [facility] [address] [place] [address] 07/21/2024 9:53 AM BAND LINING BANDER Hospital Encounter [facility] Leaf [facility]ender [address] [place] [address] Kiel Vasquez MD [address] [facility] [address] [place] [address] Paroxysmal A-fib 07/21/2024 9:53 AM BAND LINING BANDER - 07/21/2024 11:46 AM BAND LINING BANDER Surgery [facility] Leaf Blender [address] [place] [address] Kiel Vasquez MD [address] [facility] [address] [place] [address] Left atrial appendage closure percutaneous 07/28/2024 8:30 AM BAND LINING BANDER Office Visit [facility] Oncology and Hematology - [place] [address] [address] [place] [address] Nahid Hickman MD [address] [facility] [address] [place] [address] 09/09/2024 1:00 PM CDT Office Visit [facility] Heart and Vascular At [place] [address] [address] [facility] [address] [place] [address] Kiel Vasquez MD [address] [facility] [address] [place] [address] 12/16/2024 11:00 AM CDT Office Visit [facility] HEART AND VASCULAR EP AT [address] [place] [address] Demetrius Bowling DNP [address] [facility] [address] [place] [address] 02/05/2025 10:45 AM CDT Telephone Check Up [facility] Heart and Vascular At [place] [address] [address] [facility] [address] [place] [address] 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 FNP [facility] [place] [address] documented as of this encounter Procedures Procedure Name Priority Date/Time Associated Diagnosis Comments XR CHEST PA AND LATERAL 2 VW Routine 08/18/2020 4:04 PM BAND LINING BANDER Non-small cell cancer of right lung documented in this encounter Results * XR CHEST PA AND LATERAL 2 VW (08/18/2020 4:04 PM BAND LINING BANDER) Anatomical Region Laterality Modality Chest Computed Radiogr aphy 08/18/2020 4:04 PM BAND LINING BANDER Impressions 08/18/2020 4:09 PM BAND LINING BANDER IMPRESSION: No acute chest finding. Masslike opacity in the right upper lobe likely corresponds with known malignancy ?? DICTATION LOCATION: Location 9 - [facility] Narrative 08/18/2020 4:09 PM BAND LINING BANDER PA AND LATERAL CHEST, 2 VIEWS Exam [...] with known malignancy DICTATION LOCATION: Location - [facility] Edinson Ferrell MD DIAGNOSTIC IMAGING O [place] documented in this encounter Visit Diagnoses Not on filedocumented in this encounter Care Teams Peoplesoft Crm Developer Relationship Specialty Start Date End Date Aliza Bain MD [address] [place] [address] PCP - General Family Practice 07/29/20 11/21/21 documented as of this encounter
--- OUTSIDE RECORDS SUMMARY | 2024-07-01 00:45 | XMS_ITS | Encounter Summary ---
Author Organization [facility] Address [address] [place] [address] Care Team Providers Care Program Eligibility Specialist Name Role Phone Aliza Bain MD Primary Care Provider Encounter Details Date Type Department Care Team (Latest Contact Info) Description 08/23/2020 12:29 PM CHROMOSOMAL DISORDERS COUNSELOR - 08/23/2020 11:59 PM [facility] Hospital Encounter [facility] Laboratory Services S [facility] [address] [place] [address] Edinson Ferrell MD [address] [facility] [address] [place] [address] Discharge Disposition: Home or Self [...] COVID-19? No / Unsure 08/18/2020 12:05 PM CHROMOSOMAL DISORDERS COUNSELOR documented as of this encounter Medications at [...] st Contact Info) Description 2024 11:00 AM CHROMOSOMAL DISORDERS COUNSELOR Appointment [facility] [address] [place] [address] 07/21/2024 9:45 AM CHROMOSOMAL DISORDERS COUNSELOR Appointment [facility] [address] [place] [address] Kiel Vasquez MD [address] [facility] [address] [place] [address] 07/21/2024 9:53 AM CHROMOSOMAL DISORDERS COUNSELOR Hospital Encounter [facility] [address] [place] [address] Kiel Vasquez MD [address] [facility] [address] [place] [address] Paroxysmal A-fib 07/21/2024 9:53 AM CHROMOSOMAL DISORDERS COUNSELOR - 07/21/2024 11:46 AM CHROMOSOMAL DISORDERS COUNSELOR Surgery [facility] Physician [facility] [address] [place] [address] Kiel Vasquez MD [address] [facility] [address] [place] [address] Left atrial appendage closure percutaneous 07/28/2024 8:30 AM CHROMOSOMAL DISORDERS COUNSELOR Office Visit [facility] Oncology and Hematology - [place] [address] [place] [address] Nahid Hickman MD [address] [facility] [address] [place] [address] 09/09/2024 1:00 PM CDT Office Visit [facility] Heart and Vascular At [place] [address] [address] [facility] [address] [place] [address] Kiel Vasquez MD [address] [facility] [address] [place] [address] 12/16/2024 11:00 AM CDT Office Visit [facility] HEART AND VASCULAR EP AT [address] [place] [address] Demetrius Bowling DNP [address] [facility] [address] [place] [address] 02/05/2025 10:45 AM CDT Telephone Check Up [facility] Heart and Vascular At [address] [place] [address] 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, CAT [facility] [place] [address] documented as of this encounter Procedures Procedure Name Priority Date/Time Associated Diagnosis Comments PATHOLOGY Pathology 08/23/2020 1:10 PM CHROMOSOMAL DISORDERS COUNSELOR documented in this encounter Results * PATHOLOGY (08/23/2020 1:10 PM CHROMOSOMAL DISORDERS COUNSELOR) CASE REPORT Surgical Pathology Report ? Case: [id number] ? Authorizing Provider: ??Edinson Ferrell MD ?Collected: ? 08/23/2020 01:10 PM ? [facility] ?? Received: ?08/23/2020 01:10 PM ? Services S [facility] ? Pathologist: ? Esthela Hoang MD ? Specimen: ?Other, specify, 2 slides, labeled: [id number] ? 08/24/2020 10:20 AM [facility] Identified [facility] FINAL DIAGNOSIS Lung, right upper lobe, CT-guided core biopsy (OSC [id number], 07/19/2020): - Adenocarcinoma with lepidic growth pattern 08/24/2020 10:20 AM [facility] Identified [facility] OSCOPIC DESCRIPTION Sections from the right upper lobe CT-guided lung biopsy show 3 small cores of lung parenchyma with involvement by a well differentiated adenocarcinoma with a lepidic growth pattern. The outside report indicates that a non-small cell predictive panel was performed at [facility] oncology in [place], [place]. The report indicates negative V600 BRAF mutation, negative ROS1 gene rearrangement, negative for ALK gene rearrangement by FISH, negative for EGFR mutation, positive for K-fifi mutation exon 2, and PDL 1 (Keytruda) with expression (tumor proportion 2%). 08/24/2020 10:20 AM [facility] CLINICAL INFORMATION No Dx found. 08/24/2020 10:20 AM [facility] SUBMITTED BY Dr. Edinson Ferrell, [address] [facility], [address], [place] [address]. [facility], Department of Pathology, [facility] [place] [address], [place] [address] 08/24/2020 10:20 AM [facility] MATERIAL RECEIVED Received from [facility] in [facility] are 2 glass slides labeled [id number], L1 and L3, representing H&E sections. Also received is the corresponding surgical pathology report. 08/24/2020 10:20 AM [facility] COMMENT Special stain and/or immunohistochemical results are interpreted with controls that demonstrate appropriate staining reactions. Note on use of immunocytochemistry reagents: This test was developed and its performance characteristics determined by [facility], Department of Laboratory Medicine. It has [...] part or completely in the following laboratories: [facility], CLIA #[id number] [address] [place] [address] [facility], [place] #[id number] [address] [place] [address]/[place], CLIA #[id number] [address] [place] [address]. 08/24/2020 10:20 AM [facility] Tissue (Other, specify) 08/23/2020 1:10 PM CHROMOSOMAL DISORDERS COUNSELOR 08/23/2020 1:10 PM CHROMOSOMAL DISORDERS COUNSELOR Edinson Ferrell MD PATHOLOGY/CYTOLOGY O RDERABLES [facility] CLIA# [id number] [address] [place] [address] documented in this encounter Visit Diagnoses Not on filedocumented in this encounter Care Teams Program Eligibility Specialist Relationship Specialty Start Date End Date Aliza Bain MD [address] [place] [address] PCP - General Family Practice 07/29/20 11/21/21 documented as of this encounter
--- OUTSIDE RECORDS SUMMARY | 2024-07-01 00:45 | XMS_ITS | Encounter Summary ---
Author Organization [facility] Address [address] [place] [address] Care Team Providers Care Bogger Operator Name Role Phone Aliza Bain MD Primary Care Provider Reason for Visit * Reason Comments Follow Up 2 week f/u with PET and Labs * Eval and Treat (Routine) - Closed Specialty Diagnoses / Procedures Referred By Meghana vigil Referred To Contact Oncology Diagnoses C34.90 Procedures OFFICE LEVEL VISIT 3-5 Evangelist Vyas MD [address] [place] [address] [address] [place] [address] Nahid Hickman MD [address] [place] [address] Referral ID Status Reason Start Date Expiration Date Visits Re quested Visits Authorized [id number] Closed 07/20/2020 01/16/2021 12 12 Encounter Details Date Type Department Care Team (Late st Contact Info) Description 08/13/2020 8:45 AM INTENSIVE CARE SPECIALIST Office Visit [facility] Oncology and Hematology - [place] [address] [place] [address] Nahid Hickman MD [address] [place] [address] Malignant neoplasm of right upper lobe of lung (Primary Dx); Non-small cell cancer of right lung Social History Tobacco Use [...] have Coronavirus / COVID-19? No / Unsure 08/13/2020 8:42 AM INTENSIVE CARE SPECIALIST documented as of this encounter Last Filed Vital Signs Vital Sign Reading Time Taken Comments Blood Pressure 183/74 08/13/2020 8:55 AM INTENSIVE CARE SPECIALIST Pulse 59 08/13/2020 8:55 AM INTENSIVE CARE SPECIALIST Temperature 36.7 ??C (98.1 ??F) 08/13/2020 8:55 AM CS T Respiratory Rate - - Oxygen Saturation 97% 08/13/2020 8:55 AM INTENSIVE CARE SPECIALIST Inhaled Oxygen Concentration - - Weight 70.3 kg (154 lb 14.4 oz) 08/13/2020 8:55 AM INTENSIVE CARE SPECIALIST Height 161.3 cm (5' 3.5 ) 08/13/2020 8:55 AM INTENSIVE CARE SPECIALIST Body Mass Index 27.01 08/13/2020 8:55 AM INTENSIVE CARE SPECIALIST documented in this encounter Progress Notes * Nahid Hickman MD - 08/13/2020 12:28 PM CST HEMATOLOGY / ONCOLOGY PROGRESS NOTE Patient [...] 2%. Negative ALK gene rearrangement. CURRENT TREATMENT Plan for surgery TREATMENT HISTORY SUBJECTIVE Patient came into the office for follow-up visit after the PET scan was performed. She denies any chest pain or shortness of breath. Weight and appetite stable. No bleeding and bruising. No other newcomplaints. Review of system Constitutional: denies fevers, sweats, fatigue, malaise, weight loss HEENT: denies sinus congestion, hearing or vision problems Respiratory: denies cough, dyspnea, wheeze Cardiovascular: denies chest pain, exertional chest pressure/discomfort, nausea, syncope, shortnessof breath GI: denies constipation, diarrhea, dsyphagia, reflux symptoms, vomiting, melena : denies dysuria, frequency, incontinence, urgency Integumentary system: no lymphadenopathy, sweats, flushing Musculoskeletal: denies: myalgia, arthralgia Neurological: denies blurry or disturbed vision, numbness/weakness, dizziness Skin: No lumps, bumps or rashes. Objective: Vital signs in last 24 hours: [...] No lymphadenopathy Neuro: No obvious focal deficit PATH LABS Labs from 10/26/2020 showed creatinine 0.8 total bilirubin 0.5 WBC 6 hemoglobin 11 platelet 217,000 @IMAGEIMP@ Assessment: Plan: There are no active problems to display for this patient. ?? 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 Is statuspost CT-guided biopsy of right upper lobe lung mass on July 19, 2020 that showed well differentiated adenocarcinoma. Molecular profile showed positive K-fifi mutation in exon 2 and PD-L1 expressionof 2%. Negative ALK gene rearrangement. PET scan done on August 05 showed right upper lobe mass measures 3.5 x 2.3 cm with abnormal FDG uptake without any evidence of metastatic disease. Patient is going to see Dr Mccord for surgical consultation. I plan to see her back after the surgery in 6 weeks to discuss any adjuvant chemotherapy if needed. ? TOBACCO COUNSELING She is not a tobacco user. 08/13/2020 Nahid Hickman MD NSIVE CARE SPECIALIST documented in this encounter Plan of Treatment Upcoming Encounters Date Type Department Care Team (Late st Contact Info) Description 2024 11:00 AM INTENSIVE CARE SPECIALIST Appointment [facility] [address] [place] [address] 07/21/2024 9:45 AM INTENSIVE CARE SPECIALIST Appointment [facility] [address] [place] [address] Kiel Vasquez MD [address] [facility] [address] [place] [address] 07/21/2024 9:53 AM INTENSIVE CARE SPECIALIST Hospital Encounter [facility] [address] [place] [address] Kiel Vasquez MD [facility] [address] [place] [address] Paroxysmal A-fib 07/21/2024 9:53 AM INTENSIVE CARE SPECIALIST - 07/21/2024 11:46 AM INTENSIVE CARE SPECIALIST Surgery [facility] [address] [place] [address] Kiel Vasquez MD [facility] [address] [facility] [address] [place] [address] Left atrial appendage closure percutaneous 07/28/2024 8:30 AM INTENSIVE CARE SPECIALIST Office Visit [facility] Oncology and Hematology - [place] [address] [place] [phone] Nahid Hickman MD [address] [facility] [address] [place] [address] 09/09/2024 1:00 PM CDT Office Visit [facility] Heart and Vascular At [address] [place] [address] Kiel Vasquez MD [facility] [address] [facility] [address] [place] [address] 12/16/2024 11:00 AM CDT [facility] HEART AND [facility]ULAR EP AT [address] [place] [address] Demetrius Bowling, TRUONG [address] [facility] [address] [place] [address] 02/05/2025 10:45 AM CDT Telephone Check Up [facility] Heart and Vascular At [facility] [address] [facility] [address] [place] [address] 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 FNP [address] [place] [address] documented as of this encounter Visit Diagnoses Diagnosis Malignant neoplasm of right upper lobe of lung- Primary Malignant neoplasm of upper lobe, bronchus or lung Non-small cell cancer of right lung Paroxysmal atrial fibrillation- Primary Atrial fibrillation Paroxysmal A-fib Atrial fibrillation Paroxysmal A-fib Atrial fibrillation documented in this encounter Care Teams Bogger Operator Relationship Specialty Start Date End Date Aliza Bain MD [address] [place] [address] PCP - General Family Practice 07/29/20 11/21/21 documented as of this encounter
--- OUTSIDE RECORDS SUMMARY | 2024-07-01 00:45 | XMS_ITS | Encounter Summary ---
Author Organization [facility] Address [address] [place] [address] Care Team Providers Care Information Assurance Engineer Name Role Phone Aliza Bain MD Primary Care Provider Encounter Details Date Type Department Care Team (Latest Contact Info) Description 08/31/2020 5:21 AM CDT - 08/31/2020 11:59 PM CDT Hospital Encounter [facility] [address], [address] [place] [address] Edinson Ferrell MD [address] [facility] [address] [place] [address] Discharge Disposition: Home or Self [...] st Contact Info) Description 2024 11:00 AM GORE INSERTER Appointment [facility] [address] [place] [address] 07/21/2024 9:45 AM GORE INSERTER Appointment [facility] [address] [place] [address] Kiel Vasquez MD [address] [facility] [address] [place] [address] 07/21/2024 9:53 AM GORE INSERTER Hospital Encounter [facility] [address] [place] [address] Kiel Vasquez MD [address] [facility] [address] [place] [address] Paroxysmal A-fib 07/21/2024 9:53 AM GORE INSERTER - 07/21/2024 11:46 AM GORE INSERTER Surgery [facility] [address] [place] [address] Kiel Vasquez MD [address] [facility] [address] [place] [address] Left atrial appendage closure percutaneous 07/28/2024 8:30 AM GORE INSERTER Office Visit [facility] - [place] [address] [address] [place] [address] Nahid Hickman MD [address] [facility] [address] [place] [id number] 09/09/2024 1:00 PM CDT Office Visit [facility] At [address] [place] [address] Kiel Vasquez MD [facility] [address] [facility] [address] [place] [address] 12/16/2024 11:00 AM CDT Office Visit [facility] AT [address] [place] [address] Demetrius Bowling DNP [facility] [address] [facility] [address] [place] [address] 02/05/2025 10:45 AM CDT Telephone Check Up [facility] [address] [place] [address] 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, CAT [facility] [place] [address] documented as of this encounter Visit Diagnoses Not on filedocumented in this encounter Care Teams Information Assurance Engineer Relationship Specialty Start Date End Date Aliza Bain MD [address] [place] [address] PCP - General Family Practice 07/29/20 11/21/21 documented as of this encounter
--- OUTSIDE RECORDS SUMMARY | 2024-07-01 00:45 | XMS_ITS | Encounter Summary ---
Author Organization [facility] Address [address] [place] [address] Care Team Providers Care Protective Signal Installer Helper Name Role Phone Aliza Bain MD Primary Care Provider Encounter Details Date Type Department Care Team (Latest Contact Info) Description 08/18/2020 1:00 PM ENVIRONMENTAL HEALTH INSPECTOR - 08/18/2020 11:59 PM [facility] Hospital Encounter [facility] [address] [place] [address] Edinson Correa MD [address] [facility] [address] [place] [address] Discharge Disposition: Home or Self Care Anesthesia Record Procedure Summary Procedure Name Responsible Anesthesiologist Anesthesia Start Time Anesthesia Stop Time THORACOTOMY (Right: Chest) Jason Ray MD 08/31/20 0616 08/31/20 0909 Events Date Time Event Comment 08/31/2020 0616 An Start 0628 An Pause Discontinuous a nesthesia time-STOP 0630 0701 An Resume Discontinuous a nesthesia time-START 0703 In Room This event disp lays the In Room time documented in the Surgical Log. Deleting this event will not remove it from the log but will remove it from the Grid and Graph timeline. 0704 An Start Data 0711 Pre-Induction Immediate pre- induction anesthetic assessment performed. Vital signs as noted on graphic. 0714 An Induction 0717 An Intubation 0722 Anesthesia Ready 0728 Quick Note Changed from hummel pine to LLD position 0735 An one lung vent 0747 Procedure Start This event d isplays the Procedure Start time documented in the Surgical Log. Deleting this event will not remove it from the log but will remove it from the Grid and Graph timeline. 0838 An Two-Lung Vent 0855 Procedure Stop This event di splays the Procedure Stop time documented in the Surgical Log. Deleting this event will not remove it from the log but will remove it from the Grid and Graph timeline. 0856 An Extubation Emergence unev entful Awake, spontaneous respirations. Adequate muscle strength demonstrated Adequate tidal volume. Orapharynx suctioned. Extubated with positive pressure ventilation. 0905 an stop data 0906 Out of Room This event disp lays the Out of Room time documented in the Surgical Log. Deleting this event will not remove it from the log but will remove it from the Grid and Graph timeline. 0909 An Stop 09/01/2020 1202 Follow-up Complete Meds * Agents No agents on file. * Blood No blood administrations on file. Lines, Drains, and Airways Type Details Placement Removal Incision surgical incision; Right, lateral; chest; 09/07/20; 0450 08/31/20 0830 by 09/07/20 0450 by PROVIDER, DISCHARGE PATIENT Chest Tube Present on Admission : No; Tube Number: #1; Location: Right:, pleural; Size: 28 Fr (angled) 08/31/20 0000 by Debra Pollock RN 09/05/20 0800 by Hilaria Ferguson RN Chest Tube Present on Admission : No; Tube Number: #2; Location: Right:, pleural; Size: 28 Fr 08/31/20 0000 by Debra Pollock RN 09/02/20 0953 by Luciana Talamantes RN Peripheral IV Orientation: Left; Location: AC; Device: Angiocath; Gauge: 18 gauge; Removal Indication: no longer indicated; Removal Interventions: direct pressure, catheter intact 08/31/20 0000 by Sada Berg RN 09/06/20 1608 by Maira Curtis RN Epidural Present on Admission : No 08/31/20 0655 by Jason Ray MD 09/03/20 1000 by Luciana Talamantes RN Indwelling Urethral Catheter 08/31/20; 0710; No; Indwelling double lumen catheter; latex; 16 Fr; inserted; 1; 10; 10; 09/03/20; 1700 08/31/20 0710 by Debra Pollock RN 09/03/20 1700 by Luciana Talamantes RN Endotracheal Airway DL Size: 35; Attempt s: 1; Verification: Auscultated bilateral breath sounds, Equal chest movement, Continuous waveform capnography 08/31/20 0717 by Jason Ray MD 08/31/20 0856 by Jason Ray MD ART Line Orientation: Right:; Location: radial artery; Size (Ga): 20 Ga; Removal Indication: no longer indicated; Removal Interventions: pressure dressing, direct pressure 08/31/20 0722 by Jason Ray MD 08/31/20 1032 by Sada Berg RN documented in this encounter Social History [...] and Family Not on file 07/29/2020 Attends [employer] Not on file 07/29 Do you [...] COVID-19? No / Unsure 08/18/2020 12:05 PM ENVIRONMENTAL HEALTH INSPECTOR documented as of this encounter Last Filed Vital Signs Vital Sign Reading Time Taken Comments Blood Pressure 157/73 08/18/2020 2:58 PM ENVIRONMENTAL HEALTH INSPECTOR Pulse 63 08/18/2020 2:58 PM ENVIRONMENTAL HEALTH INSPECTOR Temperature - - Respiratory Rate - - Oxygen Saturation 97% 08/18/2020 2:58 PM ENVIRONMENTAL HEALTH INSPECTOR Inhaled Oxygen Concentration - - Weight 68 kg (150 lb) 08/18/2020 2:58 PM ENVIRONMENTAL HEALTH INSPECTOR Height 160 cm (5' 3 ) 08/18/2020 2:58 PM ENVIRONMENTAL HEALTH INSPECTOR Body Mass Index 26.57 08/18/2020 2:58 PM ENVIRONMENTAL HEALTH INSPECTOR documented in this encounter Medications at Time [...] 05/07/2020 10/30/2023 documented as of this encounter OR Notes * Anesthesia PAT Evaluation - Yoel Duenas MD - 08/18/2020 1:00 PM ENVIRONMENTAL HEALTH INSPECTOR Images from the original note were not included. Pre-Procedure Anesthesiology Consultation and Evaluation (PACE) Service 08/19/2020 9:49 AM Name: Zee Martinez Age: 75 y.o. Sex: female CSN: [id number] Procedure(s): THORACOTOMY Allergies Allergen Reactions ??? Penicillins [...] quit 1999 PHYSICAL EXAM BP (!) 157/73 (BP Location: Left arm, Patient Position (BP): Sitting) Pulse 63 Ht 5' 3 (1.6 m) Wt 68 kg (150 lb) SpO2 97% BMI 26.57 kg/m?? Weight: Weight: 68 kg (150 lb) (08/18/20 1458) Height: Ht Readings from Last 1 Encounters: [...] normal, atraumatic, no cyanosis or edema LABS Lab Results Component Value Date/Time WBC 4.1 08/18/2020 03:06 PM HEMOGLOBIN 10.5 (L) 08/18/2020 03:06 PM HEMATOCRIT 33.9 (L) 08/18/2020 03:06 PM PLATELETS 182 08/18/2020 03:06 PM MCV 93.1 08/18/2020 03:06 PM Lab Results Component Value Date/Time SODIUM 142 08/18/2020 03:06 PM POTASSIUM 3.6 08/18/2020 03:06 PM CHLORIDE 100 08/18/2020 03:06 PM CO2 31 (H) 08/18/2020 03:06 PM CALCIUM 9.7 08/18/2020 03:06 PM BUN 22 08/18/2020 03:06 PM CREATININE 0.83 08/18/2020 03:06 PM GLUCOSE 89 08/18/2020 03:06 PM ANION GAP 11 08/18/2020 03:06 PM Lab Results Component Value Date/Time INR 1.0 08/18/2020 03:06 PM PROTIME 13.8 08/18/2020 03:06 PM No results found for: HCGURPOC, HCGQUALUR, HCGQUAL, HCGQUANT, HCGINTACT EK08-18-20 normal sinus rhythm, PAC's noted Other Studies/Considerations: CT Scan PET 08-05-20 Risks/Alternatives discussed. Questions solicited and answered. Yes Postop pain management discussed yes Smoking/Tobacco Counseling: None Recommendations:None ATTESTATIONS (Not in a hospital admission) I obtained, updated or reviewed the patient's current medications including dosage, frequency, and route of administration. This information was obtained directly from the patient or off premise service representative or caregiver or another available healthcare resource and updated in [employer] EMR. Social History Tobacco Use Smoking Status Former Smoker ??? Packs/day: 0.50 ??? Years: 40.00 ??? Pack years: 20.00 ??? Types: Cigarettes ??? Quit date: 08/19/1999 ??? Years since quittin.0 Smokeless Tobacco Never Used Patient screened for tobacco use and identified as a Non-User of tobacco. REPORT AND NECESSARY FOLLOW-UP History and physical performed in [facility]; tests (ECG, blood work) reviewed. Abnormal Results Found: no Further Testing or Evaluation Required: no, requesting stress test from last few yrs done at OSH Final [facility] Review: May proceed with procedure/surgery: no, awaiting stress test from [facility] Stop bang score is 3 CAT Narvaez I, CAT Narvaez, attest that I have reviewed the Advanced Practitioner's note - including the history, documented findings, assessment, and plan. I agree with the plan as documented except wherenoted. CAT Narvaez 08-19-20 Addendum Lexiscan Negative stress test for ischemia Stable hemodynamics throughout test Normal perfusion at rest and during stress LVEF 85% Final [facility] Review: May proceed with procedure/surgery: YES CAT Narvaez 08/19/2020 9:51 AM I, Yoel Duenas MD, attest that I have reviewed the Advanced Practitioner's note - including the history, documented findings, assessment, and plan. I agree with the plan as documented except where noted. Yoel Duenas MD RONMENTAL HEALTH INSPECTOR * Meghann-OP - Ferny Santana RN - 08/18/2020 1:00 PM CST ?Anesthesiology Routine Orders Protocol - [facility] (includes Main OR, Heart & Vascular OR and Minor Procedure Non-MOLD FILLER OR) Approved by: [facility] - Medical Executive Committee Approval Date: 12/10/2019 ORDERS ARE ENTERED ???PER PROTOCOL?? Enter the protocol in the patient's electronic health record using smartphrase: .anesthesiologyroutineordersprotocol Screening Protocol: ; Surgical Procedures o Hematocrit/Hemoglobin: for surgical cases with potential for high blood loss ; Day of Procedure/Anesthesiology Care Screening o Urine bHCG (Lab 144, if unable to obtain urine, may obtain serum Lab 142) Female of menses, or age > 12 y/o o POC glucose for diabetics ; Notify provider for any POC glucose or serum glucose less than 70 mg/dL. If POC Glucose results are critical, do not delay treatment. If appropriate, may confirm POC with: Nursing Only [id number] (this lab can be obtained at no cost to the patient when confirming a critical high or Critical low POC glucose. ; When receiving report on an inpatient, confirm if patient is receiving dextrose containing fluidsto prevent hypoglycemia. Communicate with the anesthesiologist and request glucose containing fluids be continued or added to intraoperative fluids. ; POC glucose within 30 minutes of discharge or transfer to another unit (the time-based intra-procedure POC check may be deferred during short procedures at the discretion of the provider. Testing Protocol*: ; Laboratory exams obtained within 3 months prior to surgery are acceptable if normal, or at baseline. ; Continue any test ordered in PACE. ; Hematocrit/Hemoglobin (Eug0357) o Cases of expected major blood loss in patients of any age as evidenced by an order for Type and Cross or Type and Screen. ; BMP (Lab15) o Patients with: o Diabetes o Renal disease o Dialysis patients: Day of Surgery; If dialysis on day of surgery, Post-dialysis o Patients taking the following medications: - Digoxin - Diuretics - Steroids ; BUN (Egs658)/ Serum Cr (Lab66) o When use of intravenous contrast dye is planned ; Liver function panel (Lab20) in any patient with: o Jaundice, or active liver disease EKG (EKG1) 12 lead EKG EKG obtained within the last 3 months for the following: Known cardiac disease (CAD, CHF, moderate or worse valvular disease Patients undergoing cardiac, thoracic, or vascular surgery CIED Cardiac Symptoms: Angina, dysrhythmia, palpitations, SOB, PND, S3 Moderate or greater risk surgery with any of the following: Stroke/TIA/CVD, PAD/PVD, CKD (Cr>2), DM, EBL > 1000 cc, or Drugs or toxins that alter conduction (e.g., digoxin, cocaine, MAOIs,antiarrhythmics, antipsychotics, TCAs) ; Assessment of Valvular function: As indicated in current ACC/AHA Guideline on Perioperative Cardiovascular Evaluation and Managementof Patients Undergoing Noncardiac Surgery CONTACT PROVIDER TO CONSIDER DEXTROSE CONTAINING FLUIDS FOR RESCUE ORDERS FOR O NPO patients who have received PO or injectable antihyperglycemic agents and glucose is less [id number] mg/dl O NPO patients who have NOT received PO or injectable antihyperglycemic agents and POC glucose is less than 70 mg/dL. See Medication Orders Section below for Rescue Orders *Additional testing maybe indicated based upon patient co-morbidities and planned procedure. Blood Bank ; For surgical procedures, prepare blood per surgical Blood Bank process unless additional blood orblood products have been ordered by the provider, then follow provider order. Monitoring ; Obtain and record vital signs on admission to pre-operative area ; Continuous vital signs (Non-invasive blood pressure, pulse oximetry and EKG) for: o All patients in the [facility] OR o All inpatients o Patients for Acute Pain Service procedures o Ambulatory or same day admit patients currently taking beta-blockers o Ambulatory or same day admit patients diagnosed with/or at risk for sleep apnea (e.g., STOP-BANG greater than or equal to 4) Warming ; [place] forced air warming in accordance with the [facility] Perioperative Policy Medications Orders: Entered by Nursing Intravenous Line ; Place #18 gauge IV in non-dominant, non-operative or not otherwise excluded upper extremity (Preferred minimum IV gauge: 16 or greater in [facility] OR, 18 or greater in Main OR, 20 or greater in Non-OR settings). ; For patients with difficult IV access notify anesthesiologist. ; For patients with difficult IV access and an implanted infusion port, access the port. Local Anesthetic for use to initiate IV line ; 2%Lidocaine 0.3mL intradermal ONE TIME to numb area of IV catheter insertion PRN. IV Fluid Adult patients (age 18 years or greater) ; Lactated ringer's solution to infuse at 150mL/hr, may discontinue upon discharge from OR area o If patient has a serum creatinine >2 or history of renal failure, RN shall change fluid to NS at 10mL/hr RESCUE ORDERS - entered by the Pharmacist or the liner worker Orders Patient has IV access and UNCONCIOUS, UNWILLING to swallow or NPO Glucose Level Treatment 40-69 mg/dL Dextrose 50% IV, give 12.5 grams (25 ml), IV push ONE TIME Less than 40 mg/dL Dextrose 50% IV, give 25 grams (50 ml), IV push ONE TIME Patient has no IV access, patient UNCONCIOUS, unable to swallow or NPO Glucose Level Treatment Less than 70 mg/dL Administer IM GLUCAGON 1 mg one time. After administration of glucagon is complete insert peripheral IV and notify physician. Patient is CONCIOUS and able to swallow and no longer NPO Glucose Level Treatment 40-69 mg/dL Give 15 gram food choice such as: Regular soda (6 oz), Apple juice (4 oz), or 1/2 cup regular jello Less Than 40 mg/dL Give 30 gram food choice such as: Regular soda (12 oz), Apple juice (8 oz), or 1cup regular jello Nursing Communication for Subsequent Care: ??? Check POC glucose 15 minutes after rescue. ??? Recheck and retreat every 15 minutes until blood glucose is greater than or equal to 70 mg/dL. ??? Once POC glucose result is 70 mg/dL or greater: o Check POC glucose every 30 minutes for 3 occurrences o Resume previous POC Glucose check orders. After Hypoglycemic Symptoms Subside, Give a Snack or Ask Provider for Dextrose Containing Fluids SNACK CHOICES: 1 carb and 1 fat servin saltine crackers and 2 teaspoons peanut butter; or 1 slice of bread and 2 teaspoons peanut butter; or 1 oz cheese and 6 saltine crackers; or 1 cup 2% milk and 6 saltine crackers. RONMENTAL HEALTH INSPECTOR * Meghann-OP - Ferny Santana RN - 08/18/2020 1:00 PM CST Images from the original note were not included. Learning About Using an Incentive Spirometer What is an incentive spirometer? An incentive spirometer is a handheld device that exercises your lungs and measures how much air you can breathe in. It tells you and your doctor how well your lungs are working. The spirometer can help you practice taking deep breaths. Deep breaths can help open your airways and prevent fluid or mucus from building up in your lungs, and make it easier for you to breathe. Using the device can help prevent serious lung infections like pneumonia, improve your breathing after you've had pneumonia or surgery, and keep your airways open and lungs active if you can't get out of bed. How do you use an incentive spirometer? When you use an incentive spirometer, you breathe in air through a tube that is connected to a large air column containing a piston or ball. As you breathe in, the piston or ball inside the column moves up. The height of the piston or ball shows how much air you breathed in. You may feel lightheaded when you breathe in deeply for this exercise. If you feel dizzy or feel like you're going to pass out, stop the exercise and rest. Each time you do this exercise, keep track of your progress by writing down how high the piston or ball moves up the column. 1. Move the slider on the outside of the large column to the level that you want to reach or that your doctor recommended. 2. Sit or stand up straight, and hold the spirometer in front of you. Be sure to keep it level. 3. To start, breathe out normally. Then close your lips tightly around the mouthpiece. Make sure that you don't block the mouthpiece with your tongue. 4. Take a slow, deep breath. Breathe in as deeply as you can. As you breathe in, the piston or ballinside the large column will move up. Try to move the piston or ball as high up as you can or to the level your doctor recommended. When you can't breathe in anymore, hold your breath for 2 to 5 seconds. 5. Relax, take the mouthpiece out of your mouth, and breathe out normally. 6. Repeat steps 1 through 5 as many times as your doctor tells you to. 7. After you've taken the recommended number of breaths, try to cough a few times. This will help loosen any mucus that has built up in your lungs. It will make it easier for you to breathe. If you just had surgery on your belly or chest, hold a pillow over your cut (incision) when you cough. Follow-up care is a cerna part of your treatment and safety. Be sure to make and go to all appointments, and call your doctor if you are having problems. It's also a good idea to know your test resultsand keep a list of the medicines you take. Where can you learn more? Go to https://www.healthwise.net/patiented Enter B979 in the search box to learn more about Learning About Using an Incentive Spirometer. Current as of: August 11, 2019 Content Version: 12.5 ?? [employer]. Care instructions adapted under license by your healthcare professional. If you have questions about a medical condition or this instruction, always ask your healthcare professional. These instructions may not represent the values of this healthcare organization. [employer] disclaims any warranty or liability for your use of this information. How to Use an Incentive Spirometer (01:25) Your health professional recommends that you watch this short online health video. Learn how to use an incentive spirometer to improve the health of your lungs. How to watch the video Scan the QR code OR Visit the website [email or web address] Current as of: August 11, 2019 Content Version: 12.5 ?? [employer]. Care instructions adapted under license by your healthcare professional. If you have questions about a medical condition or this instruction, always ask your healthcare professional. These instructions may not represent the values of this healthcare organization. [employer] disclaims any warranty or liability for your use of this information. RONMENTAL HEALTH INSPECTOR * Meghann-OP - Ferny Santana RN - 08/18/2020 1:00 PM CST Images from the original note were not included. [facility] Pre-Procedure Instructions PACE PACE Name: Zee Martinez Age: 75 y.o. Please report to the: [] Surgery Center [] [facility] Date of Procedure: 08/31/2020 Arrive at the time your surgeon's office has instructed. If you are unsure of the arrival time, please call your surgeon's office 24-48 hours before your surgery to confirm. PLEASE NOTIFY your surgeon promptly if you begin to feel ill prior to your surgery. A cold, sore throat, fever, or flu may require postponing the surgery to another date for your safety. Please follow these important instructions PRE-PROCEDURE ORAL INTAKE INSTRUCTIONS - DIETARY INSTRUCTIONS Follow your surgeon's instructions regarding oral intake prior to your scheduled procedure. If no specific instructions were given from your surgeon's office; below are the guidelines from the anesthesia department: Based on your health history and/or scheduled [...] remove the product and not resume use. WITHIN 24 HOURS PRIOR TO SURGERY Before you bathe or shower: Before you bathe, or shower carefully read all directions and warning on the product label. If you are allergic to Hibiclens or Aloe, DO NOT use product. Use the following steps for 3 days prior to surgery and bathe the morning of surgery using the same technique listed below. When you bathe or shower: Wash your hair, with your regular shampoo. Then rinse hair and body thoroughly to remove any shampoo residue. Wash your face and genital area with your regular soap or water only. Thoroughly rinse your body with water from the neck down. Apply the minimum amount of Hibiclens necessary to cover the skin. Use Hibiclens as you would any other liquid soap. You can apply Hibiclens directly to the skinand wash gently with a clean cotton cloth. Step out of the stream of water when applying to avoid rinsing off during application of the soap. Rinse thoroughly with warm water. DO NOT use your regularsoap after applying and rinsing Hibiclens. Do not apply lotion or deodorants to the body on the dayof surgery. Using a clean freshly laundered dry towel pat dry after the showers each time you shower. Sleep in clean freshly laundered sleepwear and bed linens. ?? DO NOT shave near the surgical site. ?? After showering the morning of surgery, DO NOT APPLY body lotions, oil, deodorants, mousse, gel,or powder. Apply no lotions, gels or creams at bedtime for infant's last diaper change prior to schedule surgery. ?? DO NOT WEAR JEWELRY (rings, earrings, and body piercings), or hair pieces to the hospital. ?? SMOKING AND USE OF TOBACCO PRODUCTS We recommend patients abstain from smoking for as long as possible before and after surgery, but even quitting for a brief period is still beneficial. DO NOT SMOKE OR USE TOBACCO PRODUCTS 12 hours before arrival to hospital. ?? PLEASE DO NOT EAT anything--including GUM, CANDY, or MINTS--after midnight. You may BRUSH YOUR TEETH. DAY OF SURGERY INSTRUCTIONS ?? YOU WILL NEED A RESPONSIBLE ADULT UPON DISCHARGE to drive you home. ?? BRING PRESCRIBED INHALERS to the hospital with you but DO NOT BRING ANY OTHER MEDICATIONS to thespital (unless otherwise instructed). ?? WEAR comfortable, loose fitting clothes or PJs to the hospital. ?? WEAR GLASSES instead of contact lenses to the hospital; bring a case if possible for glasses, dentures, and hearing aids as you will be asked to remove these items before your surgery. ?? Bring your insurance cards and taxi driver's license or photo ID. DO NOT BRING VALUABLES or large amounts of johnson with you to the hospital. ?? BRING any medical devices you need to the hospital, including remotes for stimulators, CPAP, BIPAP, or WOUND VAC machines. ?? Surgical times are estimates and can vary depending on numerous factors. ?? Expect a minimum post-op recovery of 1 hour. The medical staff will provide updates to family and/or friends as appropriate. ??? For surgical procedures, patients may be allowed one visitor. Special consideration for pediatric patients under the age of 18 years. ??? Patient and any permitted visitor should arrive to the facility with a mask. If arriving to [facility] without a mask, one will be provided. Special consideration for pediatric patients under the age of 2 years. ??? Patient and visitor will go through facility entry screening ??? Patients will wear a mask from the time they enter, throughout the entire procedure, and will remain in a mask until they leave the facility or admitted. During your hospital stay you will receive a personal passcode to help protect your health information. This will be a number that you may share with anyone you choose to receive your protected health information (PHI). Family and friends will need to ask for you by name and use the passcode beforeyour care team can share information, either in person or by phone. Please ask those who have your passcode to protect it. ADVANCED PLANNING FOR MEDICATION USE STOP Seven 7 DAYS PRIOR TO SURGERY the use of all vitamins, herbal supplements, and other alternative substances. STOP Seven 7 DAYS PRIOR TO SURGERY the use of any UNPRESCRIBED Asprin, Excedrin and NSAIDs which include Motrin, Ibuprofen, Aleve, and Naprosyn. Pre-Surgery Instructions: Medication Instructions ??? cyanocobalamin (VITAMIN [...] morning of surgery with sip of water FAQs about Surgical Site Infections What is a Surgical Site Infection (SSI)? A surgical site infection is an infection that occurs after a surgery in the part of the body wherethe surgery took place. Most patients who have surgery do not develop an infection. However, infections develop in about 1 to 3 out of every 100 patients who have surgery. Some of the common symptomsof a surgical site infection are: ??? Redness and pain around the area where you had surgery ??? Drainage of cloudy fluid from your surgical wound ??? Fever Can SSI be treated? Yes. Most surgical site infections can be treated with antibiotics. The antibiotic given to you depends on the bacteria (germs) causing the infection. Sometimes patients with SSI also need another surgery to treat infection. What are some of the things that hospitals are doing to prevent SSIs? To prevent SSIs, doctors, nurses, and other healthcare providers: ??? Clean their hands and arms up to their elbows with antiseptic agent just before the surgery. ??? Clean their hands with soap and water or an alcohol-based hand rub before and after caring for each patient. ??? May remove some of your hair immediately before surgery using electric clippers if the hair is in the same area where the procedure will occur. They should not shave you with a razor. ??? Wear special hair covers, mask, gowns, and gloves during surgery to keep the surgery area clean. Give you antibiotics before your surgery starts. In most cases, you should get antibiotics within 60 minutes before the surgery starts and the antibiotics should be stopped within 24 hours after surgery. ??? Clean the skin at the site of your surgery with a special soap that kills germs What can I do to help prevent SSIs? Before your surgery: ??? Tell your doctor and other medical problems you may have. Health problems such as allergies, diabetes, and obesity could affect your surgery and your treatment. ??? Quit smoking. Patients who smoke get more infections. Talk to your doctor about how you can quit before your surgery. ??? Do not shave near where you will have surgery. Shaving with a razor can irritate your skin and make it easier to develop an infection. At the time of your surgery: ??? Speak up if someone tries to shave you with a razor before surgery. Ask why you need to be shaved and talk with your surgeon if you have any concerns. ??? Ask if you will get antibiotics before surgery. After your surgery: ??? Make sure that your healthcare providers clean their hands before examining you, either with soap and water or an alcohol-based hand rub. If you do not see your providers clean their hands, please ask them to do so. ??? Family and friends who visit you should not touch the surgical wound or dressings. ??? Family and friends should clean their hands with soap and water or an alcohol-based hand rub before and after visiting you. If you do not see them clean their hands, ask them to clean their hands. What do I need to do when I go home from the hospital? Before you go home, your doctor or nurse should explain everything you need to know about taking care of your wound. Make sure you understand how to care for your wound before you leave the hospital. ??? Always clean your hands before and after caring for your wound. ??? Before you go home, make sure you know who to contact if you have questions or problems after you get home. ??? If you have any symptoms of an infection, such as redness and pain at the surgery site, drainage, or fever, call your doctor immediately. If you have additional questions, please ask your doctor or nurse. RONMENTAL HEALTH INSPECTOR documented in this encounter Plan of Treatment Upcoming Encounters Date Type Department Care Team (Late st Contact Info) Description 2024 11:00 AM ENVIRONMENTAL HEALTH INSPECTOR Appointment [facility] [address] [place] [address] 07/21/2024 9:45 AM ENVIRONMENTAL HEALTH INSPECTOR Appointment [facility] Clerk [address] [place] [address] Kiel Vasquez MD [address] [facility] [address] [place] [address] 07/21/2024 9:53 AM ENVIRONMENTAL HEALTH INSPECTOR Hospital Encounter [facility] [address] [place] [address] Kiel Vasquez MD [address] [facility] [address] [place] [address] Paroxysmal A-fib 07/21/2024 9:53 AM ENVIRONMENTAL HEALTH INSPECTOR - 07/21/2024 11:46 AM ENVIRONMENTAL HEALTH INSPECTOR Surgery [facility] [address] [place] [address] Kiel Vasquez MD [address] [facility] [address] [place] [address] Left atrial appendage closure percutaneous 07/28/2024 8:30 AM ENVIRONMENTAL HEALTH INSPECTOR Office Visit [facility] - [place] [address] [facility] [address] [place] [address] Nahid Hickman MD [address] [facility] [address] [place] [address] 09/09/2024 1:00 PM CDT Office Visit [facility] At [facility] [address] [facility] [address] [place] [address] Kiel Vasquez MD [address] [place] [address] 12/16/2024 11:00 AM CDT Office Visit [facility] EP AT [place] [address] [place] [address] Demetrius Bowling DNP [address] [place] [address] 02/05/2025 10:45 AM CDT Telephone Check Up [facility] At [address] [place] [address] Makenzie Coe FNP [address] [place] [address] Scheduled Orders Name Type Priority Associated Diagnoses Orde r Schedule PREPARE RED BLOOD CELLS Blood Bank Routine Non-small cell cancer of right lung Added to HDF configuration to grandchildren will have ORD item [id number] populate with time. for 1 Occurrences starting 08/18/2020 until 08/18/2020 documented as of this encounter Procedures Procedure Name Priority Date/Time Associated Diagnosis Comments XR CHEST PA AND LATERAL 2 VW Routine 08/18/2020 4:04 PM ENVIRONMENTAL HEALTH INSPECTOR Non-small cell cancer of right lung DIFFERENTIAL, MANUAL Routine 08/18/2020 3:06 PM ENVIRONMENTAL HEALTH INSPECTOR Non-small cell cancer of right lung CBC WITH DIFFERENTIAL Routine 08/18/2020 3:06 PM ENVIRONMENTAL HEALTH INSPECTOR Non-small cell cancer of right lung PTT Routine 08/18/2020 3:06 PM ENVIRONMENTAL HEALTH INSPECTOR Non-small cell cancer of right lung PROTIME-INR Routine 08/18/2020 3:06 PM ENVIRONMENTAL HEALTH INSPECTOR Non-small cell cancer of right lung TYPE AND SCREEN Routine 08/18/2020 3:06 PM ENVIRONMENTAL HEALTH INSPECTOR Non-small cell cancer of right lung BASIC METABOLIC PANEL Routine 08/18/2020 3:06 PM ENVIRONMENTAL HEALTH INSPECTOR Non-small cell cancer of right lung EKG 12-LEAD Routine 08/18/2020 3:05 PM ENVIRONMENTAL HEALTH INSPECTOR Non-small cell cancer of right lung documented in this encounter Results * 2019 NOVEL CORONAVIRUS (COVID-19) PCR DETECTION (08/27/2020 10:48 AM ENVIRONMENTAL HEALTH INSPECTOR) COVID-19 PCR NOT DETECTED Not Detected 08/28/19 7:23 PM ENVIRONMENTAL HEALTH INSPECTOR [facility] LABORATORY [facility] PERFORMING LAB [facility] 08/27/2020 7:23 PM ENVIRONMENTAL HEALTH INSPECTOR [facility] Upper Respiratory ENTIRE NASOPHARYNX / Unknown Collection / Unknown 08/27/2020 10:48 AM ENVIRONMENTAL HEALTH INSPECTOR 08/27/2020 2:18 PM ENVIRONMENTAL HEALTH INSPECTOR [facility] - 08/27/2020 7:23 PM ENVIRONMENTAL HEALTH INSPECTOR This test has been authorized by the FDA under an Emergency Use Authorization for use by authorized laboratories.?? This test has been validated in accordance with the FDA's guidance regarding Coronavirus Disease-2019 testing.?? Optimum specimen types and timing for peak viral levels during infection have not been determined.?? A negative RT-PCR result does not rule out infection with the 2019-Novel Coronavirus. Edinson Correa MD MICROBIOLOGY - [facility] AL ORDERABLES [facility]# [id number] [address] [facility] [place] [address] * XR CHEST PA AND LATERAL 2 VW (08/18/2020 4:04 PM ENVIRONMENTAL HEALTH INSPECTOR) Anatomical Region Laterality Modality Chest Computed Radiogr aphy 08/18/2020 4:04 PM ENVIRONMENTAL HEALTH INSPECTOR Impressions 08/18/2020 4:09 PM ENVIRONMENTAL HEALTH INSPECTOR IMPRESSION: No acute chest finding. Masslike opacity in the right upper lobe likely corresponds with known malignancy ?? DICTATION LOCATION: [address] Narrative 08/18/2020 4:09 PM ENVIRONMENTAL HEALTH INSPECTOR PA AND LATERAL CHEST, 2 [...] corresponds with known malignancy DICTATION LOCATION: Location [address] [place] [address] Edinson Correa MD DIAGNOSTIC IMAGING O RDERABLES * (ABNORMAL) MANUAL DIFFERENTIAL (08/18/2020 3:06 PM ENVIRONMENTAL HEALTH INSPECTOR) SEGMENTED NEUTROPHILS 32 % 08/18/2020 6:08 PM [facility] [employer] LABORATORY SERVICES [facility] LYMPHOCYTES RELATIVE 34(L) 43 - 53 % 08/18/2020 6:08 PM [facility] [employer] LABORATORY [facility] ATYPICAL LYMPHOCYTES RELATIVE 7(H) 0 - 5 % 08/18/2020 6:08 PM [facility] [employer] [facility] MONOCYTES RELATIVE 25 % 08/18/2020 6:08 PM [facility] [employer] [facility] MYELOCYTES - REL (DIFF) 2(H) <=0 % 08/18/2020 6:08 PM [facility] LABORATORY [facility] NEUTROPHILS ABSOLUTE COUNT 1.30(L) 1.90 - 7.00 K/uL 08/18/2020 6:08 PM [facility] LABORATORY SERVICES - . [facility] LYMPHOCYTES ABSOLUTE 1.38 0.70 - 4.50 K/uL 08/18/2020 6:08 PM [facility] LABORATORY SERVICES - [facility] MONOCYTES ABSOLUTE 1.03 0.10 - 1.30 K/uL 08/18/2020 6:08 PM [facility] LABORATORY SERVICES - . [facility] TOTAL CELLS COUNTED IN DIFF 107 08/18/2020 6:08 PM [facility] LABORATORY SERVICES - . [facility] RBC MORPHOLOGY Normal 08/18/2020 6:08 PM [facility] LABORATORY SERVICES - . [facility] PLATELET EST. Consistent w Count 08/18/2020 6:08 PM [facility] LABORATORY SERVICES - . [facility] Blood Venipuncture / Unknown 08/18/2020 3:06 PM ENVIRONMENTAL HEALTH INSPECTOR 08/18/2020 4:50 PM ENVIRONMENTAL HEALTH INSPECTOR Edinson Correa MD HEMATOLOGY ORDERABLE S COM [facility] LABORATORY SERVICES - [facility] CLIA# [id number] [address] [place] [address] * TYPE AND SCREEN (08/18/2020 3:06 PM ENVIRONMENTAL HEALTH INSPECTOR) Pathologist [facility] ABO GROUP O 08/18/2020 7:15 PM ENVIRONMENTAL HEALTH INSPECTOR [facility] LABORATORY SERVICES -- [facility] RH (D) TYPE Positive 08/18/2020 7:15 PM ENVIRONMENTAL HEALTH INSPECTOR [facility] LABORATORY SERVICES -- [facility] ANTIBODY SCREEN Negative 08/18/2020 7:15 PM ENVIRONMENTAL HEALTH INSPECTOR [facility] LABORATORY SERVICES -- [facility] Blood Venipuncture / Unknown 08/18/2020 3:06 PM ENVIRONMENTAL HEALTH INSPECTOR 08/18/2020 4:50 PM ENVIRONMENTAL HEALTH INSPECTOR Edinson Correa MD BLOOD BANK ORDERABLE S [facility] LABORATORY [facility] CLIA# [id number] [address] [place] [address] * PTT (08/18/2020 3:06 PM ENVIRONMENTAL HEALTH INSPECTOR) Pathologist [facility] PTT 32.4 24.4 - 36.4 seconds 08/18/2020 5:17 PM ENVIRONMENTAL HEALTH INSPECTOR [facility] Comment: PTT Therapeutic Range: Heparin Level ? PTT (seconds) <0.10 units/mL ? <53 0.10 - 0.30 units/mL ? 53 - 67 0.30 - 0.70 units/mL* ?67 - 95* 0.70 - 1.00 units/mL ? 95 - 116 *corresponds to therapeutic range for unfractionated heparin Blood Venipuncture / Unknown 08/18/2020 3:06 PM ENVIRONMENTAL HEALTH INSPECTOR 08/18/2020 4:50 PM ENVIRONMENTAL HEALTH INSPECTOR Edinson Correa MD HEMATOLOGY ORDERABLE S [facility]# [id number] [address] [place] [address] * PROTIME-INR (08/18/2020 3:06 PM ENVIRONMENTAL HEALTH INSPECTOR) Pathologist [facility] PROTIME 13.8 12.7 - 15.1 Seconds 08/18/2020 5:17 PM ENVIRONMENTAL HEALTH INSPECTOR [facility] INR 1.0 0.9 - 1.1 08/18/2020 5:17 PM ENVIRONMENTAL HEALTH INSPECTOR [facility] Blood Venipuncture / Unknown 08/18/2020 3:06 PM ENVIRONMENTAL HEALTH INSPECTOR 08/18/2020 4:50 PM ENVIRONMENTAL HEALTH INSPECTOR Narrative [facility] LABORATORY [facility] - 08/18/2020 5:17 PM ENVIRONMENTAL HEALTH INSPECTOR INR Therapeutic Range: Adult: ?? 2.0 - 3.0 for pulmonary embolism or prophylaxis against venous ?thrombosis or systemic embolization. 2.0 - 3.0 for patients with tissue heart valves. 2.5 - 3.5 for patients with mechanical heart valves or post VT. Pediatric ??(12 years and under): 1.5 - 3.0 Although the target range in children is not well established, ?INR values of 1.5 - 3.0 are recommended for most patients. ?Higher values have been used in children with prosthetic ?cardiac valves and hereditary clotting disorders. Loving (<3 days) therapeutic ranges have not been established. Edinson Correa MD HEMATOLOGY ORDERABLE S [facility] LABORATORY SERVICES [facility]# [id number] [address] [place] [address] * (ABNORMAL) CBC WITH DIFFERENTIAL (08/18/2020 3:06 PM ENVIRONMENTAL HEALTH INSPECTOR) Pathologist [facility] WBC 4.1 4.0 - 9.8 K/uL 08/18/2020 5:09 PM ENVIRONMENTAL HEALTH INSPECTOR [employer] LABORATORY SERVICES - [facility] RBC 3.64(L) 3.90 - 4.90 M/uL 08/18/2020 5:09 PM [facility] LABORATORY SERVICES [facility] HEMOGLOBIN 10.5(L) 11.8 - 14.8 g/dL 08/18/2020 5:09 PM [facility] LABORATORY SERVICES [facility] HEMATOCRIT 33.9(L) 35.5 - 44.0 % 08/18/2020 5:09 PM ENVIRONMENTAL HEALTH INSPECTOR [employer] LABORATORY SERVICES [facility] MCV 93.1 82.0 - 99.0 fL 08/18/2020 5:09 PM ENVIRONMENTAL HEALTH INSPECTOR [employer] LABORATORY SERVICES - [facility] MCH 28.8 27.2 - 32.6 pg 08/18/2020 5:09 PM ENVIRONMENTAL HEALTH INSPECTOR [facility] SERVICES - [facility] MCHC 31.0(L) 31.5 - 35.5 g/dL 08/18/2020 5:09 PM [facility] LABORATORY SERVICES - [facility] RDW 13.0 11.5 - 14.5 % 08/18/2020 5:09 PM [facility] [employer] LABORATORY SERVICES - [facility] RDW-STDEV 44.3 37.1 - 48.7 fL 08/18/2020 5:09 PM ENVIRONMENTAL HEALTH INSPECTOR [employer] LABORATORY SERVICES - [facility] PLATELETS 182 140 - 350 K/uL 08/18/2020 5:09 PM [facility] [employer] LABORATORY SERVICES - [facility] MPV 11.6 9.3 - 12.4 fL 08/18/2020 5:09 PM [facility] [employer] LABORATORY SERVICES - [facility] Blood Venipuncture / Unknown 08/18/2020 3:06 PM ENVIRONMENTAL HEALTH INSPECTOR 08/18/2020 4:50 PM ENVIRONMENTAL HEALTH INSPECTOR Edinson Correa MD HEMATOLOGY ORDERABLE S [facility] LABORATORY SERVICES - [facility]# [id number] [address] [place] [address] * (ABNORMAL) BASIC METABOLIC PANEL (08/18/2020 3:06 PM ENVIRONMENTAL HEALTH INSPECTOR) SODIUM 142 136 - 145 mmol/L 08/18/2020 5:54 PM ENVIRONMENTAL HEALTH INSPECTOR [employer] LABORATORY SERVICES - . [facility] POTASSIUM 3.6 3.5 - 5.0 mmol/L 08/18/2020 5:54 PM ENVIRONMENTAL HEALTH INSPECTOR [employer] LABORATORY SERVICES - . [facility] CHLORIDE 100 98 - 107 mmol/L 08/18/2020 5:54 PM ENVIRONMENTAL HEALTH INSPECTOR [employer] LABORATORY SERVICES - . [facility] CO2 31(H) 22 - 29 mmol/L 08/18/2020 5:54 PM ENVIRONMENTAL HEALTH INSPECTOR [employer] LABORATORY SERVICES - . [facility] CALCIUM 9.7 8.6 - 10.2 mg/dL 08/18/2020 5:54 PM ENVIRONMENTAL HEALTH INSPECTOR [employer] LABORATORY SERVICES - [facility] BUN 22 8 - 23 mg/dL 08/18/2020 5:54 PM ENVIRONMENTAL HEALTH INSPECTOR [employer] LABORATORY SERVICES - . [facility] CREATININE 0.83 0.51 - 0.95 mg/dL 08/18/2020 5:54 PM ENVIRONMENTAL HEALTH INSPECTOR [employer] LABORATORY SERVICES - [facility] Comment:The GFR result is no t clinically significant on patients <18 or >70 years of age. GLUCOSE 89 74 - 99 mg/dL 08/18/2020 5:54 PM ENVIRONMENTAL HEALTH INSPECTOR [facility] GFR >60 mL/min/1.7 3 sq meter 08/18/2020 5:54 PM ENVIRONMENTAL HEALTH INSPECTOR [facility] Comment: eGFR has not been [...] result. GFR, >60 mL/min/1.7 3 sq meter 08/18/2020 5:54 PM ENVIRONMENTAL HEALTH INSPECTOR [facility] ANION GAP 11 8 - 16 mmol/L 08/18/2020 5:54 PM ENVIRONMENTAL HEALTH INSPECTOR [facility] Blood Venipuncture / Unknown 08/18/2020 3:06 PM ENVIRONMENTAL HEALTH INSPECTOR 08/18/2020 4:50 PM ENVIRONMENTAL HEALTH INSPECTOR Edinson Correa MD CHEMISTRY ORDERABLES [facility]# [id number] [address] [facility] [place] [address] * EKG 12-LEAD (08/18/2020 3:05 PM ENVIRONMENTAL HEALTH INSPECTOR) 08/18/2020 3:05 PM ENVIRONMENTAL HEALTH INSPECTOR Narrative INTERFACE SYSTEM - 08/18/2020 5:52 PM ENVIRONMENTAL HEALTH INSPECTOR ? Stationary ECG Study ? [facility] ? Test Date: ?08/18/2020 3:05 PM Pat Name: ? ZEE MARTINEZ ? Department: ?? 46 ?Room: ? Gender: ? F ?Lithographic Press Feeder: ?? thomc3 : ?1945 ? Requested By: EDINSON CORREA Order Number: [id number] ?Reading MD: ?? Monroe Encarnacion ? Measurements Intervals ?[place] ? Rate: ? 60 ? P: ?42 SD: ? 185 ?QRS: ?33 QRSD: ? 85 ? T: ?29 QT: ? 434 ? QTc: ?434 ? Interpretive Statements ? Sinus rhythm PAC Electronically Signed On 08-18-2020 17:52:59 ENVIRONMENTAL HEALTH INSPECTOR by Monroe Encarnacion Procedure Note Monroe Encarnacion MD - 08/18/2020 Stationary ECG Study [facility] Test Date: 08/18/2020 3:05 PM Pat Name: ZEE MARTINEZ Department: 46 Room: Gender: F Lithographic Press Feeder: [facility] : 1945 Requested By: EDINSON CORREA Order Number: [id number] Reading MD: Monroe Encarnacion Measurements Intervals [place] Rate: 60 P: 42 SD: 185 QRS: 33 QRSD: 85 T: 29 QT: 434 QTc: 434 Interpretive Statements Sinus rhythm PAC Electronically Signed On 08-18-2020 17:52:59 ENVIRONMENTAL HEALTH INSPECTOR by Monroe Encarnacion Edinson Correa MD ECG ORDERABLES INTERFACE SYSTEM Refer to clinic/hospital department documented in this encounter Visit Diagnoses Diagnosis Preop testing- Primary Preoperative examination, unspecified Non-small cell cancer of right lung Paroxysmal atrial fibrillation- Primary Atrial fibrillation Paroxysmal A-fib Atrial fibrillation Paroxysmal A-fib Atrial fibrillation documented in this encounter Care Teams Protective Signal Installer Helper Relationship Specialty Start Date End Date Aliza Bain MD [address] [place] [address] PCP - General Family Practice 07/29/20 11/21/21 documented as of this encounter
--- OUTSIDE RECORDS SUMMARY | 2024-07-01 00:45 | XMS_ITS | Encounter Summary ---
Author Organization [facility] Address [address] [place] [address] Care Team Providers Care Bilingual Loan Processor Name Role Phone Aliza Bain MD Primary Care Provider Reason for Referral * Outpatient Services (Routine) - Closed Specialty Diagnoses / Procedures Referred By Contac t Referred To Contact Diagnoses Malignant neoplasm of right lung, unspecified part of lung Procedures PULMONARY FUNCTION TEST Nahid Hickman MD [address] [employer] [address] [place] [phone] [place] [address] Referral ID Status Reason Start Date Expiration Date V isits Requested Visits Authorized [id number] Closed STL CTS 07/29/2020 08/29/2021 1 1 ETIC SHOE DESIGNER * Eval and Treat (Routine) - Closed Specialty Diagnoses / Procedures Referred By Contfco t Referred To Contact Thoracic Surgery / Cardiothoracic Surgery Diagnoses Malignant neoplasm of right lung, unspecified part of lung Nahid Hickman MD [address] [place] [phone] Edinson Ferrell MD [address] [facility] [address] [place] [address] Referral ID Status Reason Start Date Expiration Date V isits Requested Visits Authorized [id number] Closed Performing Dept To Review 07/29/2020 07/29/2021 1 1 ETIC SHOE DESIGNER * PET Scan (Routine) - Closed Specialty Diagnoses / Procedures Referred By Meghana vigil Referred To Contact Diagnoses Malignant neoplasm of right upper lobe of lung Procedures PET TUMOR IMG W CT SKL BSE MID THG Nahid Hickman MD [address] [address] [place] [phone] [place] [address] Referral ID Status Reason Start Date Expiration Date V isits Requested Visits Authorized [id number] Closed STL CTS 07/30/2020 09/13/2020 1 1 ETIC SHOE DESIGNER Reason for Visit * Reason Comments Establish Care New Patient Establis h care for Lung Mass * Eval and Treat (Routine) - Closed Specialty Diagnoses / Procedures Referred By Meghana vigil Referred To Contact Oncology Diagnoses C34.90 Procedures OFFICE LEVEL VISIT 3-5 Evangelist Vyas MD [address] [place] [address] [address] [place] [address] Nahid Hickman MD [address] [employer] [address] [place] [address] Referral ID Status Reason Start Date Expiration Date Visits Re quested Visits Authorized [id number] Closed 07/20/2020 01/16/2021 12 12 Encounter Details Date Type Department Care Team (Late st Contact Info) Description 07/29/2020 2:45 PM ATHLETIC SHOE DESIGNER Office Visit [facility] Oncology and Hematology [facility] [address] [facility] [address] [place] [address] Nahid Hickman MD [address] [place] [address] Malignant neoplasm of right lung, unspecified part of lung (Primary Dx); Malignant neoplasm of right upper [...] and Family Not on file 07/29/2020 Attends [employer] [facility] Not on file 07/29 Do you [...] COVID-19? No / Unsure 07/29/2020 2:06 PM ATHLETIC SHOE DESIGNER documented as of this encounter Last Filed Vital Signs Vital Sign Reading Time Taken Comments Blood Pressure 161/83 07/29/2020 2:51 PM ATHLETIC SHOE DESIGNER Pulse 74 07/29/2020 2:51 PM ATHLETIC SHOE DESIGNER Temperature 36.8 ??C (98.2 ??F) 07/29/2020 2:51 PM CS T Respiratory Rate - - Oxygen Saturation 97% 07/29/2020 2:51 PM ATHLETIC SHOE DESIGNER Inhaled Oxygen Concentration - - Weight 71.4 kg (157 lb 6.4 oz) 07/29/2020 2:51 P M ATHLETIC SHOE DESIGNER Height 161.3 cm (5' 3.5 ) 07/29/2020 2:51 PM ATHLETIC SHOE DESIGNER Body Mass Index 27.44 07/29/2020 2:51 PM ATHLETIC SHOE DESIGNER documented in this encounter Progress Notes * Nahid Hickman MD - 07/29/2020 4:54 PM CST Hematology-oncology consult Note Requesting Physician Aliza Bain MD Primary Care Physician Aliza Bain MD Problem list There is no problem list on file for this patient. Previous TREATMENT ? Measurable Disease ? Reason for Visit Cassandra Martinez is a 75 y.o. female who was referred for consultation for lung cancer. History of present illness This is a pleasant 75-year-old female with history of smoking half pack per day for 40 years duration but quit 18 years ago. She developed pneumonia in May 2020. She had chest x-ray done that showed bilateral pulmonary infiltrate and left hilar mass. CT scan of the chest was recommended. CT chest done on June 1820 showed 3.5 x 2.6 cm right upper lobe mass there was no pathologically enlarged thoracic lymph nodes. Patient had CT-guided biopsy of right upper lobe lung mass done on July 19, 2020 that showed well- differentiated adenocarcinoma. Molecular profile showed K-fifi mutation in exon 2 with PD-L1 expression of 2%. She does have some shortness of breath but denies anycough and hemoptysis. Weight and appetite stable. No bone pain. No other new complaints. Past Medical History Past Medical History: Diagnosis Date ??? HTN (hypertension) ??? Malignant neoplasm of lung Arthritis History of anemia Surgical History No past surgical history on file. Partial hysterectomy Tonsillectomy Ankle surgery Medications Current Outpatient Medications Medication Sig Dispense Refill ??? olmesartan (BENICAR) 40 mg tablet Take 40 mg by mouth daily. Medication bottle is Olmesartan Medoxomil 40 MG tab1 tab by mouth daily ??? hydroCHLOROthiazide 25 mg tablet TAKE 1 TABLET BY MOUTH EVERY DAY ??? omeprazole (PriLOSEC) 40 mg Capsule, Delayed Release(E.C.) No current facility-administered medications for this visit. Allergies Allergies Allergen Reactions ??? Penicillins Hives Immunizations: There is no immunization history on file for this patient. Family History No family history on file. Social History Social History Tobacco Use ??? Smoking status: Never Smoker ??? Smokeless tobacco: Never Used Substance Use Topics ??? Alcohol use: Yes Comment: occasional Review of Systems Constitutional: No fever; no night sweats; no anorexia; no weight loss; no fatique NEENT: No headache; no change in vision; no change in hearing; no sore throat; no dysphagia Respiratory: No shortness of breath; no pleuritic chest pain; no cough; no hemoptysis Cardiac: No cardiac-like chest pain; no palpitations; no orthopnea; no PND; complain of CONED Breasts: No tenderness; no masses GI: No abdominal pain; no nausea; no vomiting; no diarrhea; no hematochezia; no melena : No dysuria; no frequency; no hesitancy; no hematuria TOOL AND CUTTER GRINDER: Musculosketetal: no bone pain; no arthralgia; no joint swelling; no myalgia; Skin: no pruritis; no rash; no petechiae; no ecchymoses Endocrine: no polydipsia; no polyuria; no unusual weight gain Neuro: No headache; no change in vision; no sensory changes; no muscle weakness; no confusion; no seizures Psych: no anxiety; no depression; Physical Exam Vitals: As per nursing note Constitutional: Well developed, well nourished, no acute distress, non-toxic appearance Teeth and gum. No signs of infection or swelling. Eyes: PERRL, conjunctiva normal HEENT: Atraumatic, external ears normal, nose normal, oropharynx moist, no pharyngeal exudates. no sinus tenderness Neck- normal range of motion, no tenderness, supple Respiratory: No respiratory distress, normal breath sounds, no rales, no wheezing Cardiovascular: Normal rate, normal rhythm, no murmurs, no gallops, no rubs GI: Soft, nondistended, normal bowel sounds, nontender, no splenomegaly, no hepatomegaly, no mass, no rebound, no guarding : No costovertebral angle tenderness Musculoskeletal: No edema, no tenderness, no deformities. Back- no tenderness Integument: Well hydrated, no rash, Digits and nails inspection normal Lymphatic: No lymphadenopathy noted Neurologic: Alert & oriented x 3, CN 2-12 normal, normal motor function, normal sensory function, no focal deficits noted Psychiatric: Speech and behavior appropriate ? labs No results found for this or any previous visit (from the past 24 hour(s)). Pathology ? Imaging & Other Studies Performance Status? Assessment / Plan: ? 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 Is statuspost CT-guided biopsy of right upper lobe lung mass on July 19, 2020 that showed well differentiated adenocarcinoma. Molecular profile showed positive K-fifi mutation in exon 2 and PD-L1 expressionof 2%. Negative ALK gene rearrangement. I have discussed this finding with the patient in detail. Ihave discussed different modalities of lung cancer treatment. I have informed her that if this turns out to be early stage cancer after the complete staging then she would be a good candidate for surgery based on her pulmonary function testing. I will order PET/CT for complete staging. I will also order pulmonary function testing. I will also refer her to Dr Mccord for surgical consultation. I plan to see her back in 2 weeks after PET scan. I have answered all the questions to patient satisfaction. Hypertension. Patient is on hydrochlorothiazide. Thank you very much for allowing me to participate in Cassandra Martinez's evaluation and management. Please feel free to contact if I can be of any further assistance in your patient???s care requiring hematology or oncology evaluation. Sincerely, ? ? Nahid Hickman M.D. cell TOBACCO COUNSELING She is not a tobacco user. Nahid Hickman MD ,07/29/2020 4:54 PM ? Total time spent 80 minutes, two third of the total time spent counseling patient [id number]. CC:?Aliza Bain MD ETIC SHOE DESIGNER documented in this encounter Plan of Treatment Upcoming Encounters Date Type Department Care Team (Late st Contact Info) Description 2024 11:00 AM ATHLETIC SHOE DESIGNER Appointment [facility] [address] [place] [address] 07/21/2024 9:45 AM ATHLETIC SHOE DESIGNER Appointment [facility] Occupational Health Nurse [address] [place] [phone] Kiel Vasquez MD [address] [facility] [address] [place] [address] 07/21/2024 9:53 AM ATHLETIC SHOE DESIGNER Hospital Encounter [facility] Occupational Health Nurse [address] [place] [address] Kiel Vasquez MD [address] [facility] [address] [place] [address] Paroxysmal A-fib 07/21/2024 9:53 AM ATHLETIC SHOE DESIGNER - 07/21/2024 11:46 AM ATHLETIC SHOE DESIGNER Surgery [facility] Occupational Health Nurse [address] [place] [address] Kiel Vasquez MD [address] [facility] [address] [place] [address] Left atrial appendage closure percutaneous 07/28/2024 8:30 AM ATHLETIC SHOE DESIGNER Office Visit [facility] Oncology and Hematology - [place] [address] [facility] [address] [place] [address] Nahid Hickman MD [address] [facility] [address] [place] [address] 09/09/2024 1:00 PM CDT Office Visit [facility] Heart and Vascular At [facility] [address] [facility] [address] [place] [address] Kiel Vasquez MD [address] [facility] [address] [place] [address] 12/16/2024 11:00 AM CDT Office Visit [facility] HEART AND VASCULAR EP AT [place] [address] [facility] [address] [place] [address] Demetrius Bowling DNP [address] [facility] [address] [place] [address] 02/05/2025 10:45 AM CDT Telephone Check Up [facility] Heart and Vascular At [place] [address] [facility] [address] [place] [address] Makenzie Coe, STOCK TAKER [address] [place] [address] Scheduled Orders Name Type Priority Associated Diagnoses Orde r Schedule CBC WITH DIFFERENTIAL Lab Routine Malignant neoplasm of right lung, unspecified part of lung Expected: 07/29/2020, Expires: 07/29/2021 COMPREHENSIVE METABOLIC PANEL Lab Routine Malignant neoplasm of right lung, unspecified part of lung Expected: 07/29/2020, Expires: 07/29/2021 Scheduled Referrals Name Type Priority Associated Diagnoses Order Schedule AMB REFERRAL TO CARDIOTHORACIC SURGEON Outpatient Referral Routine Malignant neoplasm of right lung, unspecified part of lung Ordered: 07/29/2020 documented as of this encounter Procedures Procedure Name Priority Date/Time Associated Diagnosis Comments PULMONARY FUNCTION TEST Routine 08/02/2020 Malignant neoplasm of right lung, unspecified part of lung documented in this encounter Results * PET TUMOR IMG W CT SKL BSE MID THG (08/05/2020) Anatomical Region Laterality Modality Other Nahid Hickman MD PE ORDERABLES * PULMONARY FUNCTION TEST (08/02/2020) Nahid Hickman MD PFT ORDERABLES documented in this encounter Visit Diagnoses Diagnosis Malignant neoplasm of right lung, unspecified part of lung- Primary Malignant neoplasm of right upper lobe of lung Malignant neoplasm of upper lobe, bronchus or lung Paroxysmal atrial fibrillation- Primary Atrial fibrillation Paroxysmal A-fib Atrial fibrillation Paroxysmal A-fib Atrial fibrillation documented in this encounter Care Teams Bilingual Loan Processor Relationship Specialty Start Date End Date Aliza Bain MD [address] [place] [address] PCP - General Family Practice 07/29/20 11/21/21 documented as of this encounter
--- OUTSIDE RECORDS SUMMARY | 2024-07-01 00:45 | XMS_ITS | Encounter Summary ---
Author Organization [facility] Address [address] [facility] Attn: Epic Prelude ADT STU POLK [address] Care Team Providers Care Sand Screener Name Role Phone Aliza Bain MD Primary Care Provider Encounter Details Date Type Department Care Team (Latest Contact Info) Description 09/27/2020 Travel Social History Tobacco Use Types Packs/Day [...] and Family Not on file 07/29/2020 Attends [employer] Not on file 07/29 Do you [...] st Contact Info) Description 2024 11:00 AM BANDING MACHINE OPERATOR Appointment [facility] S [facility] Manjit [address] [place] [address] 07/21/2024 9:45 AM BANDING MACHINE OPERATOR Appointment [facility] Licensed Clinical Social Worker [address] [place] [address] Kiel Vasquez MD [address] [facility] 2014 [place] [address] 07/21/2024 9:53 AM BANDING MACHINE OPERATOR Hospital Encounter [facility] Licensed Clinical Social Worker [address] [place] [address] Kiel Vasquez MD [address] [facility] [address] [place] [address] Jesse Lackey-fib 07/21/2024 9:53 AM BANDING MACHINE OPERATOR - 07/21/2024 11:46 AM BANDING MACHINE OPERATOR Surgery [facility] Licensed Clinical Social Worker [address] [place] [address] Kiel Vasquez MD [address] [place] [address] [address] [place] [address] Left atrial appendage closure percutaneous 07/28/2024 8:30 AM BANDING MACHINE OPERATOR Office Visit [facility] Oncology and Hematology - [place] [address] [facility] 200 [place] [address] Nahid Hickman MD [address] [facility] [address] [place] [address] 09/09/2024 1:00 PM CDT Office Visit [facility] Heart and Vascular At [address] [place] [address] Kiel Vasquez MD [address] [place] [address] 2014 [place] [address] 12/16/2024 11:00 AM CDT Office Visit [facility] HEART AND VASCULAR EP AT [address] [place] [address] Demetrius Bowling DNP [address] [place] [address] 2014 [place] [address] 02/05/2025 10:45 AM CDT Telephone Check Up [facility] Heart and Vascular At [address] [place] [address] Makenzie Coe FNP [address] [place] [phone] documented as of this encounter Visit Diagnoses Not on filedocumented in this encounter Care Teams Sand Screener Relationship Specialty Start Date End Date Aliza Bain MD [address] [place] [address] PCP - General Family Practice 07/29/20 11/21/21 documented as of this encounter
--- OUTSIDE RECORDS SUMMARY | 2024-07-01 00:45 | XMS_ITS | Encounter Summary ---
Author Organization [facility] Address [address] [facility] Attn: Epic Prelude ADT STU POLK [address] Care Team Providers Care Customer Engineer Name Role Phone Aliza Bain MD Primary Care Provider Encounter Details Date Type Department Care Team (Latest Contact Info) Description 08/31/2020 Travel Social History Tobacco Use Types Packs/Day [...] st Contact Info) Description 2024 11:00 AM SHAKER SCREEN OPERATOR Appointment [facility] Manjit [address] [place] [address] 07/21/2024 9:45 AM SHAKER SCREEN OPERATOR Appointment [facility] Clerk Entry Level [address] [place] [address] Kiel Vasquez MD [address] [facility] 2014 [place] [address] 07/21/2024 9:53 AM SHAKER SCREEN OPERATOR Hospital Encounter [facility] Clerk Entry Level [address] [place] [address] Kiel Vasquez MD [address] [facility] 2014 [place] [address] Jesse Lackey-fib 07/21/2024 9:53 AM SHAKER SCREEN OPERATOR - 07/21/2024 11:46 AM SHAKER SCREEN OPERATOR Surgery [facility] Clerk Entry Level [address] [place] [address] Kiel Vasquez MD [address] [place] [address] 2014 [place] [address] Left atrial appendage closure percutaneous 07/28/2024 8:30 AM SHAKER SCREEN OPERATOR Office Visit [facility] Oncology and Hematology - [place] [address] [facility] 200 [place] [address] Nahid Hickman MD [address] [facility] [address] [place] [address] 09/09/2024 1:00 PM CDT Office Visit [facility] Heart and Vascular At [address] [place] [address] Kiel Vasquez MD [address] [place] [address] 2014 [place] [address] 12/16/2024 11:00 AM CDT Office Visit [facility] HEART AND VASCULAR EP AT [address] [place] [address] Demetrius Bowling DNP [address] [place] [address] 2014 [place] [address] 02/05/2025 10:45 AM CDT Telephone Check Up [facility] Heart and Vascular At [address] [place] [address] Makenzie Coe FNP [address] [place] [phone] documented as of this encounter Visit Diagnoses Not on filedocumented in this encounter Care Teams Customer Engineer Relationship Specialty Start Date End Date Aliza Bain MD [address] [place] [address] PCP - General Family Practice 07/29/20 11/21/21 documented as of this encounter
--- OUTSIDE RECORDS SUMMARY | 2024-07-01 00:45 | XMS_ITS | Encounter Summary ---
Author Organization [facility] Address [address] [place] [address] Care Team Providers Care Formulation Chemist Name Role Phone Aliza Bain MD Primary Care Provider Encounter Details Date Type Department Care Team (Late st Contact Info) Description 08/31/2020 Orders Only [facility] Cardiovas and Thor Surg at [facility]osp [address] [place] [address] Edinson Ferrell MD [address] [facility] [address] [address] [place] [address] S/P thoracotomy (Primary Dx) Social History Tobacco Use Types [...] st Contact Info) Description 2024 11:00 AM RECREATION TECHNICIAN Appointment [facility] [address] [place] [address] 07/21/2024 9:45 AM RECREATION TECHNICIAN Appointment [facility] Customer Engagement Manager [address] [place] [address] Kiel Vasquez MD [address] [place] [address] 07/21/2024 9:53 AM RECREATION TECHNICIAN Hospital Encounter [facility] Customer Engagement Manager [address] [place] [address] Kiel Vasquez MD [facility] [address] [facility] [address] [place] [address] Paroxysmal A-fib 07/21/2024 9:53 AM RECREATION TECHNICIAN - 07/21/2024 11:46 AM RECREATION TECHNICIAN Surgery [facility] Customer Engagement Manager [facility] [place] [address] Kiel Vasquez MD [address] [place] [address] 2014 [place] [address] Left atrial appendage closure percutaneous 07/28/2024 8:30 AM RECREATION TECHNICIAN Office Visit [facility] Oncology and Hematology - [place] [address] [facility] [address] [place] [address] Nahid Hickman MD [address] [facility] [address] [place] [address] 09/09/2024 1:00 PM CDT Office Visit [facility] Heart and Vascular At [address] [place] [address] Kiel Vasquez MD [facility] [address] [facility] 2014 [place] [address] 12/16/2024 11:00 AM CDT Office Visit [facility] HEART AND VASCULAR EP AT [address] [place] [address] Demetrius Bowling DNP [address] [place] [address] 2014 [place] [address] 02/05/2025 10:45 AM CDT Telephone Check Up [facility] Heart and Vascular At [address] [place] [address] Makenzie Coe BAKER SECOND [address] [place] [address] documented as of this encounter Results * XR CHEST PA AND LATERAL 2 VW (09/27/2020 2:35 PM CDT) Anatomical Region Laterality Modality Chest Computed Radiogr aphy 09/27/2020 2:36 PM CDT Impressions 09/27/2020 3:34 PM CDT IMPRESSION: 1. Unchanged small right pleural effusion. DICTATION LOCATION: Location - [facility] Narrative 09/27/2020 3:34 PM CDT EXAMINATION: ??CHEST [...] small right pleural effusion. DICTATION LOCATION: Location [address] [place] [address] Edinson Ferrell MD DIAGNOSTIC IMAGING O RDERABLES documented in this encounter Visit Diagnoses Diagnosis S/P thoracotomy- Primary Other postprocedural status S/P thoracotomy Other postprocedural status Paroxysmal atrial fibrillation- Primary Atrial fibrillation Paroxysmal A-fib Atrial fibrillation Paroxysmal A-fib Atrial fibrillation documented in this encounter Care Teams Formulation Chemist Relationship Specialty Start Date End Date Aliza Bain MD [address] [place] [address] PCP - General Family Practice 07/29/20 11/21/21 documented as of this encounter
--- OUTSIDE RECORDS SUMMARY | 2024-07-01 00:45 | XMS_ITS | Encounter Summary ---
Author Organization [facility] [email or web address] [facility] Address [address] [place] [address] Care Team Providers Care Computer Laboratory Technician Name Role Phone Aliza Bain MD Primary Care Provider Encounter Details Date Type Department Care Team (Late st Contact Info) Description 07/30/2020 Orders Only [facility] Oncology and Hematology - [place] [address] [place] [address] Keiry Vincent Malignant neoplasm of right lung, unspecified part of lung Social History Tobacco Use Types [...] COVID-19? No / Unsure 07/29/2020 2:06 PM COOK SPECIALTY documented as of this encounter Plan of Treatment Upcoming Encounters Date Type Department Care Team (Late st Contact Info) Description 2024 11:00 AM COOK SPECIALTY Appointment [facility] S [facility] Manjit [address] [place] [address] 07/21/2024 9:45 AM COOK SPECIALTY Appointment [facility] Communications Program Manager [address] [place] [phone] Kiel Vasquez MD [address] [place] [address] 07/21/2024 9:53 AM COOK SPECIALTY Hospital Encounter [facility] Communications Program Manager [address] [place] [address] Kiel Vasquez MD [address] 2014 [place] [address] Paroxysmal A-fib 07/21/2024 9:53 AM COOK SPECIALTY - 07/21/2024 11:46 AM COOK SPECIALTY Surgery [facility] Communications Program Manager [address] [place] [phone] Kiel Vasquez MD [address] [place] [address] 2014 [place] [address] Left atrial appendage closure percutaneous 07/28/2024 8:30 AM COOK SPECIALTY Office Visit [facility] Oncology and Hematology - [place] [address] [facility] [address] [place] [address] Nahid Hickman MD [address] [facility] [address] [place] [address] 09/09/2024 1:00 PM CDT Office Visit [facility] Heart and Vascular At [address] [place] [address] Kiel Vasquez MD [address] [place] [address] 2014 [place] [address] 12/16/2024 11:00 AM CDT Office Visit [facility] AT [address] [place] [address] Demetrius Bowling DNP [address] [place] [address] 2014 [place] [address] 02/05/2025 10:45 AM CDT Telephone Check Up [facility] Heart and Vascular At [address] [place] [phone] Makenzie Coe FNP [address] [place] [phone] documented as of this encounter Visit Diagnoses Diagnosis Malignant neoplasm of right lung, unspecified part of lung Paroxysmal atrial fibrillation- Primary Atrial fibrillation Paroxysmal A-fib Atrial fibrillation Paroxysmal A-fib Atrial fibrillation documented in this encounter Care Teams Computer Laboratory Technician Relationship Specialty Start Date End Date Aliza Bain MD [address] [place] [phone] PCP - General Family Practice 07/29/20 11/21/21 documented as of this encounter
--- OUTSIDE RECORDS SUMMARY | 2024-07-01 00:45 | XMS_ITS | Encounter Summary ---
Author Organization [facility] Address [address] Corleyn: Epic Prelude ADT [place] [place] [address] Care Team Providers Care Hearing Therapy Director Name Role Phone Aliza Bain MD Primary Care Provider Encounter Details Date Type Department Care Team (Latest Contact Info) Description 08/13/2020 Travel Social History Tobacco Use Types Packs/Day [...] COVID-19? 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 2014 [place] [address] 07/21/2024 9:53 AM LAMINATION ASSEMBLER Hospital Encounter [facility] Fx Artist [address] [place] [address] Kiel Vasquez MD [address] [facility] 2014 [place] [address] Jesse Lackey-fib 07/21/2024 9:53 AM LAMINATION ASSEMBLER - 07/21/2024 11:46 AM LAMINATION ASSEMBLER Surgery [facility] Fx Artist [address] [place] [address] Kiel Vasquez MD [address] [place] [address] 2014 [place] [address] Left atrial appendage closure percutaneous 07/28/2024 8:30 AM LAMINATION ASSEMBLER Office Visit [facility] Oncology and Hematology - [place] [address] [facility] 200 [place] [address] Nahid Hickman MD [address] [facility] [address] [place] [address] 09/09/2024 1:00 PM CDT Office Visit [facility] Heart and Vascular At [address] [place] [address] Kiel Vasquez MD [address] [place] [address] 2014 [place] [address] 12/16/2024 11:00 AM CDT Office Visit [facility] HEART AND VASCULAR EP AT [address] [place] [address] Demetrius Bowling DNP [address] [place] [address] 2014 [place] [address] 02/05/2025 10:45 AM CDT Telephone Check Up [facility] Heart and Vascular At [address] [place] [address] Makenzie Coe FNP [address] [place] [phone] documented as of this encounter Visit Diagnoses Not on filedocumented in this encounter Care Teams Hearing Therapy Director Relationship Specialty Start Date End Date Aliza Bain MD [address] [place] [address] PCP - General Family Practice 07/29/20 11/21/21 documented as of this encounter
--- OUTSIDE RECORDS SUMMARY | 2024-07-01 00:45 | XMS_ITS | Encounter Summary ---
Author Organization [facility] Address [address] [place] [address] Care Team Providers Care Electrical Project Engineer Name Role Phone Aliza Bain MD Primary Care Provider Reason for Visit * Reason Onset Date Comments request for pathology slides 08/18/2020 Encounter Details Date Type Department Care Team (Late st Contact Info) Description 08/18/2020 Telephone [facility] Cardiovas and Thor Surg at [facility] [address] [facility] [id number] [place] [address] Edinson Ferrell MD [address] [facility] [address] [place] [address] request for pathology slides Social History Tobacco Use Types Packs/Day Years [...] COVID-19? 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 AL GEAR GENERATOR * Telephone Encounter - Jermain Carlisle RN - 08/18/2020 2:07 PM CST [facility] Dr. Berny Wahl, AGACNRick Barrett, CAT [id number] [place] [address] Office # [phone] Pathology Slide Requested from: [facility] Pathology Patient Information Full Name: Cassandra Martinez Date of : 1945 Address: [address] [place] [address] Date of Scheduled Surgery: August 31, 2020 Requesting Physician: Dr. Ferrell Reason for Request: Continuation of Care, Treatment of Condition Specimen Information Site/Tissue Collected: R upper lung nodule biopsy Date of Collection: July 19, 2020 Send slides to the below address for Review: [facility] ATTN: Pathology Department [address] [place] [address] [employer] . Please use Ref: [id number] on the shipping label. Thank you for your assistance, Provider: Dr. Ferrell AL GEAR GENERATOR documented in this encounter Plan of Treatment Upcoming Encounters Date Type Department Care Team (Late st Contact Info) Description 2024 11:00 AM SPIRAL GEAR GENERATOR Appointment [facility] [address] [place] [address] 07/21/2024 9:45 AM SPIRAL GEAR GENERATOR Appointment [facility] Sales Order Processor [address] [place] [address] Kiel Vasquez MD [address] [facility] 2014 [place] [address] 07/21/2024 9:53 AM SPIRAL GEAR GENERATOR Hospital Encounter [facility] Sales Order Processor [address] [place] [address] Kiel Vasquez MD [address] [facility] 2014 [place] [address] Jesse Lackey-fib 07/21/2024 9:53 AM SPIRAL GEAR GENERATOR - 07/21/2024 11:46 AM SPIRAL GEAR GENERATOR Surgery [facility] Sales Order Processor [address] [place] [phone] Kiel Vasquez MD [address] [place] [address] 2014 [place] [address] Left atrial appendage closure percutaneous 07/28/2024 8:30 AM SPIRAL GEAR GENERATOR Office Visit [facility] Oncology and Hematology - [place] [address] [facility] 200 [place] [address] Nahid Hickman MD [address] [facility] [address] [place] [address] 09/09/2024 1:00 PM CDT Office Visit [facility] Heart and Vascular At [address] [place] [address] Kiel Vasquez MD [address] [place] [address] 2014 [place] [address] 12/16/2024 11:00 AM CDT Office Visit [facility] HEART AND VASCULAR EP AT [address] [place] [address] Demetrius Bowling DNP [address] [place] [address] 2014 [place] [address] 02/05/2025 10:45 AM CDT Telephone Check Up [facility] Heart and Vascular At [address] [place] [address] Makenzie Coe FNP [address] [place] [phone] documented as of this encounter Visit Diagnoses Not on filedocumented in this encounter Care Teams Electrical Project Engineer Relationship Specialty Start Date End Date Aliza Bain MD [address] [place] [address] PCP - General Family Practice 07/29/20 11/21/21 documented as of this encounter
--- OUTSIDE RECORDS SUMMARY | 2024-07-01 00:45 | XMS_ITS | Encounter Summary ---
Author Organization [facility] Address [address] [place] [address] Care Team Providers Care Wild Animal Caretaker Name Role Phone Aliza Bain MD Primary Care Provider Reason for Visit * Auth/Cert Specialty Diagnoses / Procedures Referred By Contac t Referred To Contact Diagnoses RIGHT LUNG CA Edinson Ferrell MD [address] [facility] [address] [place] [address] Referral ID Status Reason Start Date Expiration Date Visits Re quested Visits Authorized [id number] 08/18/2020 1 1 Encounter Details Date Type Department Care Team (Late st Contact Info) Description 08/31/2020 6:16 AM CDT Anesthesia Event [facility] Operating Room [address] [place] [address] Jason Ray MD [address] [place] [address] Melanie Aleman, [address] [address] Anesthesia Record Procedure Summary Procedure Name Responsible [...] An Stop 09/01/2020 1202 Follow-up Complete Meds Name Total midazolam PF (VERSED) 1 mg/mL injection 5 mg propofol (DIPRIVAN) 10??mg/mL injection 150 mg rocuronium 10 mg/mL injection 50 mg dexamethasone (DECADRON) 4 mg/mL injecti on 6 mg famotidine (pf) (PEPCID) 20 mg/2 mL inje ction 20 mg diphenhydrAMINE (BENADRYL) 50 mg/mL inje ction 25 mg lidocaine PF (XYLOCAINE MPF) 2% injectio n 10 mL morphine PF (ASTRAMORPH,DURAMORPH) 1 mg/ mL injection 3 mg vancomycin (VANCOCIN) 1,000 mg in dextro se 5% 200 mL IVPB (PREMIX) 1,000 mg aztreonam (AZACTAM) 1,000 mg in sodium c hloride 0.9% 50 mL IVPB (MBP) 1,000 mg glycopyrrolate (ROBINUL) 0.2 mg/ mL inje ction 1.4 mg vasopressin (VASOSTRICT) 40 Units in sod ium chloride 0.9% 250 mL infusion 2 Units ondansetron (ZOFRAN) 4??mg/2 mL injectio n 4 mg neostigmine (BLOXIVERZ) 1 mg/mL injectio n 5 mg ketorolac (TORADOL) 30??mg/mL injection 15 mg bupivacaine-EPINEPHrine (SEN SORCAINE MPF WITH EPI) 0.25% - 1:200,000 PF injection 6 mL sugammadex (BRIDION) 100 mg/mL injection 200 mg lactated ringers infusion 0 mL * Agents Name Air Desflurane % Desflurane O2 N2O Inspired N2O O2 * Blood [...] and Family Not on file 07/29/2020 Attends [employer] Not on file 07/29 Do you [...] AM CDT documented as of this encounter OR Notes * Anesthesia Post-Op Follow-up Note - Netta Yoder RN - 09/01/2020 12:02 PM CDT 09/01/2020 12:02 PM Cassandra Martinez No apparent Anesthesia related complications Netta Yoder RN * Anesthesia Postprocedure Evaluation - Jason Ray MD - 08/31/2020 9:55 AM CDT Post Anesthesia Evaluation Vitals: Vitals Value Taken Time BP 114/41 08/31/20 0945 Temp 36.1 ??C 08/31/20 0910 Resp 12 08/31/20 0954 SpO2 100 % 08/31/20 0954 Pulse 49 08/31/20 0954 Heart Rate 49 bpm 08/31/2054 Vitals shown include unvalidated device data. Pain Rating: Anesthesia Post Evaluation Jason Ray MD Phase I Postanesthesia Evaluation Including Modified Daniel Score Patient seen and evaluated: Modified Daniel Score: Score: 8 (08/31/20947) COMMENTS: No apparent Anesthesia related complications RESPIRATORY FUNCTION: Respiration: able to breath and cough freely (08/31/20947) [2=able to breathe and cough freely, 1=dyspnea, limited breathing or tachypnea, 0=apnea or mechanicventilator] O2 Saturation: needs O2 inhalation to maintain O2 saturation greater than 90% (08/31/20947) [2=able to maintain O2 saturation greater than 92% on room air, 1=needs O2 inhalation to maintain O2 saturation greater than 90%, 0=O2 saturation less than 90% even with O2 supplement] Resp: 14 (08/31/20944)SpO2: 100 % (08/31/20944) CARDIOVASCULAR FUNCTION: Heart Rate: 51 bpm (08/31/20944) BP: (!) 114/41 (08/31/20944) Circulation: BP within 20% of preanesthetic level (08/31/20947) [2=BP within 20% of preanesthetic level, 1=BP within 20-49% of preanesthetic level, 0=BP within 50%of preanesthetic level] MENTAL STATUS, NEURO, ACTIVITY: PATIENT PARTICIPATION IN EVALUATION:yes Consciousness: arousable on calling (08/31/20947) [2=fully awake, 1=arousable on calling, 0=not responding] Activity: able to move 4 extremities voluntarily or on command (08/31/20947) [2=able to move 4 extremities voluntarily or on command, 1=able to move 2 extremities voluntarily or on command, 0=unable to move extremities voluntarily or on command] TEMPERATURE: Temp: 36.1 ??C (08/31/20909) PAIN: NAUSEA AND VOMITING: no nausea and no vomiting POSTOPERATIVE HYDRATION: well hydrated No intake or output data in the 24 hours ending 08/31/20954 Jason Ray MD 08/31/2020 9:55 AM * Anesthesia Procedure Notes - Jason Ray MD - 08/31/2020 8:00 AM CDTAssociated Order(s): Arterial Line Insertion Arterial Line Insertion Start Time: 08/31/2020 7:22 AM Patient location during procedure: OR Performed by: Jason Ray MD Patient was prepped and draped in usual sterile fashion Indications: multiple ABGs and hemodynamic monitoring Patient sedated: yes Sedation type: GETA Vitals: Vital signs were monitored during sedation. Hand hygiene performed prior to procedure Sterile Barriers: gloves, cap and mask Preparation: skin prepped with 2% chlorhexidine and skin prepped with alcohol Skin prep agent dried: skin prep agent completely dried prior to procedure Patient position: flat Location: right radial Seldinger technique used Catheter type: radial kit Catheter size: 20 G Catheter Length (in.): 1.75 [place] Identification: palpation technique Number of attempts: 1 Successful placement: yes Assessment: blood return through port Procedure uneventful Post-procedure: line secured and dressing applied * Anesthesia Procedure Notes - Jason Ray MD - 08/31/2020 7:59 AM CDTAssociated Order(s): Airway Airway Date/Time: 08/31/2020 7:17 AM Location: OR Plan: routine intubation Patient Identity Confirmed by: Verbally with patient Airway: not difficult Performed by: Anesthesiologist: Jason Ray MD Indications and Patient Condition: Indications for Airway Management: Anesthesia Preoxygenated: Yes Patient Position: Sniffing Mask Difficulty Assessment: 1 - vent by mask Plan to extubate at end of case: Yes Final Airway Details: Final Airway Type: Endotracheal airway Final Endotracheal Airway: ETT - double lumen left Cuffed: Yes Technique Used for Successful ETT Placement: Direct laryngoscopy Devices/Methods Used in Placement: Curved blade Insertion Site: Oral Laryngoscope Blade/Videolaryngoscope Blade Size: 3 ETT Double Lumen (fr): 35 Measured from: Teeth ETT to Teeth (cm): 29 Tube secured with: Tape Placement Verified by: auscultation, end tidal CO2 and chest rise Placement Verified by comment: BRYCE position checked with FOB Cormack-Lehane Classification: Grade IIb - view of arytenoids or posterior of glottis only Number of Attempts at Approach: 1 * Anesthesia Preprocedure Evaluation - Jason Ray MD - 08/31/2020 6:29 AM CDT Relevant Problems No relevant active problems Anesthesia Evaluation Anesthesia Plan ASA Final: 3 General Pre-Anesthesia Evaluation - Long Form 08/31/2020 6:29 AM Name: Cassandra Martinez Age: 75 y.o. Sex: female CSN: [id number] Allergies Allergen Reactions ??? Penicillins Hives Medications Prior to Admission Medication Sig Dispense Refill Last Dose ??? cyanocobalamin (VITAMIN B-12) 100 mcg tablet Take 100 mcg by mouth daily. Past Week at Unknown time ??? calcium-cholecalciferol (OS-SUSAN 500+D) 500 mg(1,250mg) -200 unit tablet Take 1 Tablet by mouth daily. Past Week at Unknown time ??? glucosamine sulfate 500 mg Capsule Take 500 mg by mouth. Past Week at Unknown time ??? magnesium oxide 250 mg magnesium Tablet Take by mouth. Past Week at Unknown time ??? aspirin (ECOTRIN EC) 81 mg Tablet, Delayed Release (E.C.) Take 81 mg by mouth daily. Past Week at Unknown time ??? cholecalciferol, vitamin D3, (VITAMIN D3 ORAL) Take by mouth. Past Week at Unknown time ??? hydroCHLOROthiazide 25 mg tablet TAKE 1 TABLET BY MOUTH EVERY DAY 08/31/2020 at 0400 ??? olmesartan (BENICAR) 40 mg tablet Take 40 mg by mouth daily. Medication bottle is Olmesartan Medoxomil 40 MG tab1 tab by mouth daily 08/30/2020 at 2100 Current Facility-Administered Medications Medication Dose Route Frequency Provider Last Rate Last Admin ??? vancomycin (VANCOCIN) 1,000 mg in dextrose 5% 200 mL IVPB (PREMIX) 15 mg/kg IV pre-proc one time Arash Watson PA Patient Active Problem List Diagnosis Date Noted [...] of PONV No Review of Systems Cardiovascular: htn Respiratory: lung ca, h/o pna, h/o smoking Gastroenterology: denies PHYSICAL EXAM BP (!) 160/53 (BP Location: Left arm, Patient Position (BP): Sitting) Pulse 62 Temp 36.9 ??C (Temporal) Resp 20 Ht 5' 3.5 (1.613 m) Wt 66.7 kg (147 lb 2 oz) SpO2 98% BMI 25.65 kg/m?? Weight: Weight: 66.7 kg (147 lb 2 oz) (08/31/20 0628) Height: Ht Readings from Last 1 Encounters: 08/31/20 5' 3.5 (1.613 m) BMI: Body mass index is 25.65 kg/m??. Airway: normal range of motion: Airway Class: II (soft palate, uvula, fauces visible); None Lungs: clear to auscultation bilaterally, normal respiratory effort Heart: regular rate and rhythm, S1, S2 normal, no murmur, click, rub or gallop Neuro: alert, oriented x 3, no defects noted in general exam. Vascular Access: Peripheral Line or Arterial Line LABS Lab Results Component Value Date/Time WBC [...] found for: HCGURPOC, HCGQUALUR, HCGQUAL, HCGQUANT, HCGINTACT No results found for: GLUCPOC EKG: Other Studies/Considerations: None Postop pain management discussed yes Smoking/Tobacco Counseling: None Recommendations: None ASA Physical Status: ASA 3 - Patient with moderate systemic disease with functional limitations I have seen and examined this patient and confirm that all data is current and accurate. Yes Choice of Anesthesia/Anesthesia Plan: Proceed, General, Invasive Monitoring and Acute Pain Service Care I have discussed the anesthetic options and the risks/benefits with the patient/family. Questions have been solicited and answered. Yes Jason Ray MD documented in this encounter Miscellaneous Notes * Addendum Note - Netta Yoder RN - 09/01/2020 12:02 PM CDT Addendum created 09/01/20 1202 by Netta Yoder RN Clinical Note Signed, Intraprocedure Event edited documented in this encounter Plan of Treatment Upcoming Encounters Date Type Department Care Team (Late st Contact Info) Description 2024 11:00 AM DOCUMENT MANAGEMENT CONSULTANT Appointment [facility] [address] [place] [address] [place] [address] 07/21/2024 9:45 AM DOCUMENT MANAGEMENT CONSULTANT Appointment [facility] [address] [place] [address] [place] [address] Kiel Vasquez MD [address] [phone] 07/21/2024 9:53 AM DOCUMENT MANAGEMENT CONSULTANT Hospital Encounter [facility] [place] [address] [place] [address] Kiel Vasquez MD [facility] [address] [place] [address] Paroxysmal A-fib 07/21/2024 9:53 AM DOCUMENT MANAGEMENT CONSULTANT - 07/21/2024 11:46 AM DOCUMENT MANAGEMENT CONSULTANT Surgery [facility] [address] [place] [address] [place] [address] Kiel Vasquez MD [facility] [address] [place] [address] Left atrial appendage closure percutaneous 07/28/2024 8:30 AM DOCUMENT MANAGEMENT CONSULTANT Office Visit [facility] Oncology and Hematology - [place] [address] [phone] Nahid Hickman MD [address] [facility] [address] [place] [address] 09/09/2024 1:00 PM CDT Office Visit [facility] Heart and Vascular At [address] [place] [address] Kiel Vasquez MD [facility] [address] [place] [address] 12/16/2024 11:00 AM CDT Office Visit [facility] AND VASCULAR EP AT [address] [place] [address] Demetrius Bowling DNP [address] [place] [address] [address] [place] [address] 02/05/2025 10:45 AM CDT Telephone Check Up [facility] Heart and Vascular At [address] [place] [address] Makenzie Coe, WAYS OPERATOR [address] [place] [address] documented as of this encounter Procedures Procedure Name Priority Date/Time Associated Diagnosis Comments SD ANES INSERT CATH, ART, PERCUT, SHORTTERM Routine 08/31/2020 8:00 AM CDT SD ANES INSERT ENDOTRACHEAL AIRWAY Routine 08/31/2020 7:59 AM CDT documented in this encounter Results * SD ANES INSERT CATH, ART, PERCUT, SHORTTERM (08/31/2020 8:00 AM CDT) Narrative Jason Ray MD - 08/31/2020 8:00 AM CDT Jason Ray MD ? 08/31/2020 ??8:00 AM Arterial Line Insertion Start Time: 08/31/2020 7:22 AM Patient location during procedure: OR Performed by: Jason Ray MD Patient was prepped and draped in usual sterile fashion Indications: multiple ABGs and hemodynamic monitoring Patient sedated: yes Sedation type: GETA Vitals: Vital signs were monitored during sedation. Hand hygiene performed prior to procedure Sterile Barriers: gloves, cap and mask Preparation: skin prepped with 2% chlorhexidine and skin prepped with alcohol Skin prep agent dried: skin prep agent completely dried prior to procedure Patient position: flat Location: right radial Seldinger technique used Catheter type: radial kit Catheter size: 20 G Catheter Length (in.): 1.75 [place] Identification: palpation technique Number of attempts: 1 Successful placement: yes Assessment: blood return through port Procedure uneventful Post-procedure: line secured and dressing applied Jason Ray MD PROCEDURE/MINOR SURG ICAL ORDERABLES * SD ANES INSERT ENDOTRACHEAL AIRWAY (08/31/2020 7:59 AM CDT) Narrative Jason Ray MD - 08/31/2020 7:59 AM CDT Jason Ray MD ? 08/31/2020 ??8:00 AM Airway Date/Time: 08/31/2020 7:17 AM Location: OR Plan: routine intubation Patient Identity Confirmed by: ??Verbally with patient Airway: not difficult Performed by: Anesthesiologist: ??Jason Ray MD Indications and Patient Condition: ??Indications for Airway Management: ??Anesthesia ??Preoxygenated: Yes ?Patient Position: ??Sniffing ??Mask Difficulty Assessment: ??1 - vent by mask ??Plan to extubate at end of case: Yes ?? Final Airway Details: ??Final Airway Type: ??Endotracheal airway ??Final Endotracheal Airway: ??ETT - double lumen left ??Cuffed: Yes ?Technique Used for Successful ETT Placement: ??Direct laryngoscopy ??Devices/Methods Used in Placement: ??Curved blade ??Insertion Site: ??Oral ??Laryngoscope Blade/Videolaryngoscope Blade Size: ??3 ??ETT Double Lumen (fr): ??35 ??Measured from: ??Teeth ??ETT to Teeth (cm): ??29 ??Tube secured with: ??Tape ??Placement Verified by: auscultation, end tidal CO2 and chest rise ?Placement Verified by comment: ??BRYCE position checked with FOB ??Cormack-Lehane Classification: ??Grade IIb - view of arytenoids or posterior of glottis only ??Number of Attempts at Approach: ??1 Jason Ray MD PROCEDURE/MINOR SURG ICAL ORDERABLES documented in this encounter Visit Diagnoses Not on filedocumented in this encounter Administered Medications Inactive Administered Medications - up to 3 most recent administrations Medication Order MAR Action Action Date Dose Rate Site aztreonam (AZACTAM) 1,000 mg in sodium chloride 0.9% 50 mL IVPB (MBP) 1,000 mg, IV, ONE TIME ONLY, 1 dose, On Sun08/31/20 at 0800, Routine, Intra-op, Antibiotic Indication: Surgical prophylaxis New Bag 08/31/2020 7:53 AM CDT 1,000 mg bupivacaine-EPINEPHrine (PF) (SENSORCAINE MPF WITH EPI) 0.25 %-1:200,000 injection INTRA-PROCEDURE PRN, Starting on Sun08/31/20 at 0842, Until Sun08/31/20 at 0909, Routine, Anesthesia Intra-op Given 08/31/2020 8:42 AM CDT 6 mL dexamethasone (DECADRON) injection INTRA-PROCEDURE PRN, Starting on Sun08/31/20 at 0716, Until Sun08/31/20 at 0909, Routine, Anesthesia Intra-op Given 08/31/2020 7:16 AM CDT 6 mg diphenhydrAMINE (BENADRYL) injection INTRA-PROCEDURE PRN, Starting on Sun08/31/20 at 0716, Until Sun08/31/20 at 0909, Routine, Anesthesia Intra-op Given 08/31/2020 7:16 AM CDT 25 mg famotidine PF (PEPCID) 20 mg/2 mL injection INTRA-PROCEDURE PRN, Starting on Sun08/31/20 at 0716, Until Sun08/31/20 at 09, Routine, Anesthesia Intra-op Given 08/31/2020 7:16 AM CDT 20 mg glycopyrrolate (ROBINUL) injection INTRA-PROCEDURE PRN, Starting on Sun08/31/20 at 0803, Until Sun08/31/20 at 09, Routine, Anesthesia Intra-op Given 08/31/2020 8:39 AM CDT 1 mg Given 08/31/2020 8:25 AM CDT 0.2 mg Given 08/31/2020 8:03 AM CDT 0.2 mg ketorolac (TORADOL) injection INTRA-PROCEDURE PRN, Starting on Sun08/31/20 at 0839, Until Sun08/31/20 at 09, Routine, Anesthesia Intra-op Given 08/31/2020 8:39 AM CDT 15 mg lactated ringers infusion INTRA-PROCEDURE CONTINUOUS PRN, Starting on Sun08/31/20 at 0619, Until Sun08/31/20 at 0909, Routine, Anesthesia Intra-op New Bag 08/31/2020 6:19 AM CDT lidocaine PF 2% (XYLOCAINE MPF) injection INTRA-PROCEDURE PRN, Starting on Sun08/31/20 at 0741, Until Sun08/31/20 at 09, Routine, Anesthesia Intra-op Given 08/31/2020 7:56 AM CDT 5 mL Given 08/31/2020 7:41 AM CDT 5 mL midazolam (PF) (VERSED) injection INTRA-PROCEDURE PRN, Starting on Sun08/31/20 at 0631, Until Sun08/31/20 at 0909, Routine, Anesthesia Intra-op Given 08/31/2020 7:14 AM CDT 1 mg Given 08/31/2020 7:01 AM CDT 2 mg Given 08/31/2020 6:31 AM CDT 2 mg morphine PF (ASTRAMORPH,DURAMORPH) 1 mg/mL injection INTRA-PROCEDURE PRN, Starting on Sun08/31/20 at 0744, Until Sun08/31/20 at 0909, Routine, Anesthesia Intra-op Given 08/31/2020 7:56 AM CDT 1 mg Given 08/31/2020 7:44 AM CDT 2 mg neostigmine (BLOXIVERZ) 1 mg/mL injection INTRA-PROCEDURE PRN, Starting on Sun08/31/20 at 0839, Until Sun08/31/20 at 0909, Routine, Anesthesia Intra-op Given 08/31/2020 8:39 AM CDT 5 mg ondansetron (ZOFRAN) 4 mg/2 mL injection INTRA-PROCEDURE PRN, Starting on Sun08/31/20 at 0836, Until Sun08/31/20 at 09, Routine, Anesthesia Intra-op Given 08/31/2020 8:36 AM CDT 4 mg propofoL (DIPRIVAN) injection INTRA-PROCEDURE PRN, Starting on Sun08/31/20 at 0714, Until Sun08/31/20 at 0909, Anesthesia Intra-op Given 08/31/2020 7:14 AM CDT 150 mg rocuronium injection INTRA-PROCEDURE PRN, Starting on Sun08/31/20 at 0715, Until Sun08/31/20 at 0909, Routine, Anesthesia Intra-op Given 08/31/2020 7:15 AM CDT 50 mg sugammadex (BRIDION) 100 mg/mL injection INTRA-PROCEDURE PRN, Starting on Sun08/31/20 at 0847, Until Sun08/31/20 at 0909, Routine, Anesthesia Intra-op Given 08/31/2020 8:47 AM CDT 200 mg vancomycin (VANCOCIN) 1,000 mg in dextrose 5% 200 mL IVPB (PREMIX) 1,000 mg (rounded from 1,020 mg = 15 mg/kg ? 68 kg), IV, PRE-PROCEDURE ONCE, 1 dose, Starting on Sun08/31/20 at 0516, Until Sun08/31/20 at 0745, Routine, Pre-op, Antibiotic Indication: Surgical prophylaxis Given 08/31/2020 7:45 AM CDT 1,000 mg vasopressin (VASOSTRICT) 40 Units in sodium chloride 0.9% 250 mL infusion INTRA-PROCEDURE CONTINUOUS PRN, Starting on Sun08/31/20 at 0805, Until Sun08/31/20 at 0909, Anesthesia Intra-op Bolus 08/31/2020 8:25 AM CDT 1 Units New Bag 08/31/2020 8:05 AM CDT 1 Units documented in this encounter Care Teams Wild Animal Caretaker Relationship Specialty Start Date End Date Aliza Bain MD [address] [place] [address] PCP - General Family Practice 07/29/20 11/21/21 documented as of this encounter
== END 2024-06-24 08:53 | disposition home or self-care (01) ==
PROVIDERS: PCP Family Medicine; Visit Provider Nurse Practitioner Family
DX: E78.5 Hyperlipidemia, unspecified (principal); E55.9 Vitamin D deficiency, unspecified
CPT/HCPCS: 36415; 80061; 82306; 84443

== ENCOUNTER 2024-09-29 14:19 | Outpatient (CLI) | payer MEDICARE, SELFPAY ==
--- NOTE | ~2024-09-29 | MM_ITS ---
EXAMINATION: MM screening cherelle BI w yesika HISTORY: Screening TECHNIQUE: Craniocaudal and mediolateral oblique 3-D tomosynthesis images were obtained and synthetic 2-D images were generated. CAD analysis was submitted and interpreted. COMPARISON: Comparison to multiple prior studies sequentially, with oldest reviewed study dated 06/29. BREAST PARENCHYMAL COMPOSITION: Dense: The breasts are heterogeneously dense, which may obscure small masses FINDINGS: There is no evidence of suspicious mass, calcification, or architectural distortion to sugg est malignancy in either breast. There has been no suspicious interval change. IMPRESSION: 1. No mammographic evidence of malignancy. 2. Recommend routine screening mammography in one year. BI-RADS Category 1: Negative Reviewed, dictated and finalized at location B.
--- OUTSIDE RECORDS SUMMARY | 2024-09-29 16:05 | XMS_ITS | Encounter Summary ---
Author Organization [facility] Address [address] [place] [address] Care Team Providers Care Quality Assurance Analyst Name Role Phone Aliza Bain MD Primary Care Provider Encounter Details Date Type Department Care Team (Latest Contact Info) Description 09/04/2024 Results Follow-Up [facility] Heart and Vascular At [address] [place] [address] Melanie Swenson RN ECHOCARDIOGRAM W/ CONTRAST AGENT Social History Tobacco Use Types Packs/Day Years [...] any clubs o r organizations such as sabianist groups, unions, fraternal or athletic groups, or [...] and/or physically? 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 HEART AND VASCULAR EP AT [facility] [address] [place] [address] Demetrius Bowling DNP [facility] [address] [place] [address] 02/05/2025 10:45 AM CDT Telephone Check Up [facility] Heart and Vascular At [address] [place] [address] Makenzie Coe [place] [address] 02/12/2025 10:00 AM CDT Office Visit [facility] Heart and Vascular At [address] [place] [address] Kiel Vasquez MD [facility] [address] [place] [address] documented as of this encounter Visit Diagnoses Not on filedocumented in this encounter Care Teams Quality Assurance Analyst Relationship Specialty Start Date End Date Aliza Bain MD [address] [place] [address] PCP - General Family Practice 11/22/21 documented as of this encounter
--- OUTSIDE RECORDS SUMMARY | 2024-09-29 16:05 | XMS_ITS | Encounter Summary ---
Author Organization [facility] Address [address] [facility] [place] [address] Care Team Providers Care Surveillance Observer Name Role Phone Billie Blackwood MD Primary Care Provider [phone] Encounter Details Date Type Department Care Team (Late st Contact Info) Description 02/21/2024 Lab Requisition [facility] - Pathology Lab [address] [place] [address] René Chavez MD [address] [address] Illness, unspecified Social History Tobacco Use Types Packs/Day Years Used Date Smoking Tobacco: Never Assessed Comments Unknown Sex and Gender Information Value Date Recorded Sex Assigned at Not on file 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 Gender Identity Not on file Sexual Orientation [...] Case Report Bone Marrow Patholog y Report Case: [id number] Authorizing Provider: René Chavez Collected: 02/20/2024 09:22 AM MD Ruben Ordering Location: [facility] - Received: 02/21/2024 12:46 PM Pathology Lab Pathologist: Cristóbal Khan MD Specimens: A) - Bone Marrow Clot B) - Bone Marrow Core 02/22/2024 10:52 AM [facility] Final Diagnosis Bone marrow, aspirate, clot section, and core biopsy: - Hypercellular marrow with erythroid hyperplasia and myeloid and megakaryocytic atypia, as well as mild involvement by a plasma cell neoplasm (~7% of marrow cellularity). - See description. Peripheral blood smear: - Absolute monocytosis and normocytic anemia. - See description. 02/22/2024 10:52 AM [facility] Comment In addition to [...] normal numbers of megakaryocytes. 02/22/2024 10:52 AM [facility] Peripheral Smear Description RBC: normocytic anemia. WBC: increased in number with mature absolute monocytosis, dysgranulopoiesis. Platelets: normal in number. 02/22/2024 10:52 AM [facility] Bone Marrow Aspirate Differential [...] stain): no ring sideroblasts. 02/22/2024 10:52 AM [facility] Bone Marrow Core Biopsy [...] similar to core biopsy. 02/22/2024 10:52 AM [facility] Flow Cytometry Summary Bone marrow, flow cytometry ([id number]): - Abnormal plasma cell population detected (1.5% of overall events) 02/22/2024 10:52 AM [facility] Clinical History MGUS. 02/22/2024 10:52 AM [facility] Materials Received Received are 19 slide and 3 blocks(s) labeled [id number] along with a copy of the outside pathology report. [place] [address] . All original materials are returned to the referring institution, along with a copy of our final report. 02/22/2024 10:52 AM [facility] Pathologist Location at [facility] 02/22/2024 10:52 AM [facility] Disclaimer The performance characteristics of all immunohistochemical and indirect immunofluorescence stains (if any) cited in this report were determined by the Histopathology Laboratory of [facility]. Some of these tests were developed [...] the attending (teaching) pathologist. 02/22/2024 10:52 AM [facility] Embedded Images 02/22/2024 10:52 AM [facility] Pathology/Cytology BONE MARROW SPECIMEN / Unknown 02/20/2024 9:22 AM CDT 02/21/2024 12:46 PM CDT Miscellaneous samples (specimen) BONE MARROW SPECIMEN / Unknown 02/20/2024 9:22 AM CDT 02/21/2024 12:46 PM CDT René Chavez MD LAB - PATHOLOGY/CYT OLOGY ORDERABLES Final Result Performing Organization Address City/[facility] de Phone Number [facility] [address] [phone] documented in this encounter Visit Diagnoses Diagnosis Illness, unspecified documented in this encounter Care Teams Surveillance Observer Relationship Specialty Start Date End Date Billie Blackwood MD [address] [place] [phone] PCP - General 07/20/20 documented as of this encounter
--- OUTSIDE RECORDS SUMMARY | 2024-09-29 16:05 | XMS_ITS | Encounter Summary ---
Author Organization [facility] Address [address] [place] [address] Care Team Providers Care Brewing Technician Name Role Phone Aliza Bain MD Primary Care Provider Encounter Details Date Type Department Care Team (Latest Contact Info) Description 08/20/2024 Results Follow-Up 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 Oncology and Hematology - [place] [address] [address] [place] [address] Nahid Hickman MD [address] [facility] [address] [place] [address] 12/16/2024 11:00 AM CDT Office Visit [facility] HEART AND VASCULAR EP AT [address] [place] [address] Demetrius Bowling DNP [address] [place] [address] [address] [place] [address] 02/05/2025 10:45 AM CDT Telephone Check Up [facility] Heart and Vascular At [address] [place] [address] Makenzie Coe FNP [address] [place] [phone] 02/12/2025 10:00 AM CDT Office Visit [facility] Heart and Vascular At [address] [place] [address] Kiel Vasquez MD [address] [place] [address] [address] [place] [address] documented as of this encounter Visit Diagnoses Not on filedocumented in this encounter Care Teams Brewing Technician Relationship Specialty Start Date End Date Aliza Bain MD [address] [place] [address] PCP - General Family Practice 11/22/21 documented as of this encounter
--- OUTSIDE RECORDS SUMMARY | 2024-09-29 16:05 | XMS_ITS | Encounter Summary ---
Author Organization [facility] Address 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 Gender Identity Not on file Sexual Orientation Not on file documented as of this encounter Miscellaneous Notes * Result Encounter Note - Kiel Vasquez MD - 08/20/2024 9:17 AM AIRFREIGHT OPERATIONS AGENT Yea its hard to assess her test because the stress portion was cancelled due to elevated BP Lets have her start taking norvasc 5mg daily Ill follow up once I have results of ANSELMO JG REIGHT OPERATIONS AGENT documented in this encounter Plan of Treatment Upcoming Encounters Date Type Department Care Team (Late st Contact Info) Description 10/20/2024 11:45 AM CDT Office Visit [facility] Oncology and Hematology - [place] [address] [facility] [address] [place] [phone] Nahid Hickman MD [address] [facility] [address] [place] [address] 12/16/2024 11:00 AM CDT Office Visit [facility] HEART AND VASCULAR EP AT [address] [place] [address] Demetrius Bowling DNP [facility] [address] [facility] [address] [place] [address] 02/05/2025 10:45 AM CDT Telephone Check Up [facility] Heart and Vascular At [address] [place] [address] Makenzie Coe FNP [facility] [place] [address] 02/12/2025 10:00 AM CDT Office Visit [facility] Heart and Vascular At [address] [place] [address] Kiel Vasquez MD [facility] [address] [facility] [address] [place] [address] documented as of this encounter Visit Diagnoses Not on filedocumented in this encounter Care Teams Rate Supervisor Relationship Specialty Start Date End Date Aliza Bain MD [address] [place] [address] PCP - General Family Practice 11/22/21 documented as of this encounter
--- OUTSIDE RECORDS SUMMARY | 2024-09-29 16:05 | XMS_ITS | Clinical Summary ---
Author Organization [facility] Address [address] [facility] [place] [address] Care Team Providers Care Mold Yarn Supervisor Name Role Phone Billie Blackwood MD Primary Care Provider Source Comments [facility] [employer],non-owned Affiliates and Associated Physician Practices is amultiple site organization consisting of ambulatory clinics and hospital sitesin [place], [place], [place] and [place]. This disclosure is being madepursuant to the Care Everywhere program and may not contain all information available regarding this patient. Last updated 18.[facility] [employer] Allergies No known active allergies Medications * Be aware that medications may not be up to date on this document. Alwaysverify current medications with the patient. No known medications Immunizations Immunization Administration Dates Next Due INFLUENZA VACCINE, HIGH-DOSE , QUADR. 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 Gender Identity Not on file Sexual Orientation [...] 2019 COVID-19 VACCINE (2023-2 5 season) 2024 DEPRESSION SCREENING 06/18/2024 MEDICARE AWV CALENDAR YEAR 2024 INFLUENZA VACCINE (Season Ended) 2025 04/26/20 17 HEPATITIS B VACCINE Aged Out No longe r eligible based on patient's age to complete this topic HIB VACCINE Aged Out No longer eligi ble based on patient's age to complete this topic HPV VACCINE Aged Out No longer eligi ble based on patient's age to complete this topic MENINGOCOCCAL (Group B) VACC INE SHARED DECISION-MAKING Aged Out No longer eligibl e based on patient's age to complete this topic MENINGOCOCCAL GROUPS A/C/Y/W VACCINE Aged Out No longer eligible b ased on patient's age to complete this topic Insurance [employer] MEDICARE ADV HMO & PPO Care Teams Mold Yarn Supervisor Relationship Specialty Start Date End Date Billie Blackwood MD [address] [place] [address] [address] [place] [address] PCP - General 07/20/20
--- OUTSIDE RECORDS SUMMARY | 2024-09-29 16:05 | XMS_ITS | Clinical Summary ---
Author Organization [facility] Address [address] [place] [address] Care Team Providers Care Security Auditor Name Role Phone Aliza Bain MD Primary Care Provider Nahid Hickman MD Unavailable [phone] Kiel Vasquez MD Unavailable [phone] Allergies Active Allergy Reactions Criticality Noted Date [...] pyridostigmine (MESTINON) 60 MG tabletIndicatio ns:Myasthenia gravis ([facility]/HCC) Take 1 tablet (60 mg total) by mouth 3 (three) times daily. 90 tablet 11 08/07/2023 Active atorvastatin (LIPITOR) 40 MG tablet Take 1 tablet (40 mg total) by mouth nightly at bedtime. Active ferrous sulfate, 65 mg elemental, 325 (65 FE) MG tablet Take 1 tablet (325 mg total) by mouth daily with breakfast. Active fluticasone propionate (FLONASE) 50 MCG/ACT nasal spray 2 sprays by Each Nostril route daily. Active magnesium oxide (MAG-OX) 250 MG tablet Take 1 tablet (250 mg total) by mouth daily. Active metoprolol succinate ER (TOPROL-XL) 25 MG 24 hr tablet Take 1 tablet (25 mg total) by mouth daily. Active pyridostigmine (MESTINON) 60 MG tabletIndicatio ns:Myasthenia gravis ([facility] HHS/HCC) Take 1 tablet (60 mg total) by mouth 3 (three) times daily. 180 tablet 9 09/01/2024 Active Active Problems Problem Noted Date Diagnosed Date Bilateral carotid artery stenosis 11/12/2022 Exertional shortness of breath 11/09/2022 Chronic diastolic congestive heart failure ([facility] HHS/HCC) 12/15/2021 Spontaneous rupture of spleen 10/03/2021 New onset atrial fibrillation ([facility]/HCC) 05/09/2021 MGUS (monoclonal gammopathy of unknown significa nce) 03/15/2021 Carotid artery disease 10/01/2020 Benign hypertension 10/01/2020 Non-small cell cancer of right lung ([facility] H[facility] /HCC) 08/13/2020 Normocytic normochromic anemia 04/18/2016 Lumbago 12/05/2012 Pain in extremity 12/05/2012 Myasthenia gravis ([facility] HHS/HCC) Paroxysmal atrial fibrillation ([facility]/HCC) HTN (hypertension) Encounters Date Type Department Care Team Description 09/01/2024 7:20 AM CDT Office Visit [facility] Medical Group Multispecialty Care - [facility] [address] [facility], [address] [place] [address] Kris Amado MD Follow Up (MG) 09/01/2024 Telephone [facility] - [address] [place] [address] Kris Amado MD Error 09/01/2024 Travel from Last 3 Months Immunizations Immunization Administration Dates Next Due Fluzone High Dose - >Age 65 (Prefilled Syringe) 04/07/2021,04/26/2017 Hib (Acthib) 4 Dose 10/04/2021 Influenza Adult (Generic) 03/17/2018 MENINGOCOCCAL A C Y&W-135 oligosaccharide (MENVE O) 10/04/2021 Meningcoccal Group B (Bexsero)(aka Meningitis) 0 10/04/2021 Pneumococcal (Pneumovax 23) 04/07/2021 Pneumococcal (Prevnar 13) 10/04/2021 Zoster (Zostavax) [address] Unt/0.65Ml 05/26/2016 Family History Medical History Relation [...] Date Recorded Patient Health Questionnaire-2 Score 0 09/01/2024 Comments No Sex and Gender Information Value Date Recorded Sex Assigned at Female 08/29/2024 2:09 PM CDT Legal Sex Female 6:29 PM CDT Gender Identity Not on file Sexual Orientation Not on file Last Filed Vital Signs Vital Sign Reading Time Taken Comments Blood Pressure 170/79 09/01/2024 7:56 AM CDT Pulse 57 09/01/2024 7:38 AM CDT Temperature 36.7 C (98 F) 09/01/2024 7:38 AM CDT Respiratory Rate 17 09/01/2024 7:38 AM CDT Oxygen Saturation 100% 09/01/2024 7:38 AM CDT Inhaled Oxygen Concentration - - Weight 55.8 kg (123 lb) 09/01/2024 7:38 AM CDT Height 160 cm (5' 3 ) 09/01/2024 7:38 AM CDT Body Mass Index 21.79 09/01/2024 7:38 AM CDT Plan of Treatment Upcoming Encounters Date Type Department Care Team (Late st Contact Info) Description 10/16/2024 11:00 AM CDT Appointment [facility] [place] [address] Jimmy Morris MD Three [facility]. [address] [place] [address] 01/20/2025 10:20 AM CDT Office Visit [facility] Medical Group Multispecialty Care - [facility] [address] [facility], [address] [place] [address] Kris Amado MD [address] [place] [address] Health Maintenance Due Date Last Done Comments DTaP, Tdap and Td Vaccines ( 1 - Tdap) 1964 Annual Medicare Wellness Visit 2009 Dexa Scan (General) 2009 Zoster Vaccines (2 of 3) 07/21/2016 05/26/2016 RSV Immunization or 60+ Years (1 - 1-dose 75+ series) 2019 COVID-19 Vaccine ( - 2023-2 5 season) 2024 Meningococcal B Vaccine Aged Out 10/04/2021 No l onger eligible based on patient's age to complete this topic Meningococcal Vaccine Aged Out 10/04/2021 No marianela antonia eligible based on patient's age to complete this topic Pneumococcal Vaccine: 50+ Years Completed 10/04/2021, 04/07/2021 PHQ-2 (Physician Lawn) Completed 09/01/2024 RSV Immunizations Under 20 Months Aged Out No longer eligible b ased on patient's age to complete this topic Goals Goal Patient Goal Type Associated Problems Recent Progress Patient-Stated? Author Safety Patient/family will have appropriate support at home upon discharge General No Zoila Gan RN Insurance [employer] Advance Directives * Full Code (Latest Code Status on File) Date Activated Date Inactivated Comments 10/03/2021 9:15 AM 10/10/2021 1:30 PM * Full Code Date Activated Date Inactivated Comments 10/03/2021 4:15 AM 10/03/2021 9:15 AM Care Teams Security Auditor Relationship Specialty Start Date End Date Aliza Bain MD [address] [place] [address] PCP - General FAMILY PRACTICE 05/09/21 Nahid Hickman MD [address] [address] PCP - ONCOLOGY HEMATOLOGY/ONCOLOGY 10/03/21 Kiel Vasquez MD [address] [facility] [address] [place] [address] Consulting Physician CARDIOLOGY 10/03/21
--- OUTSIDE RECORDS SUMMARY | 2024-09-29 16:05 | XMS_ITS | Encounter Summary ---
Author Organization [facility] Address [address] [facility] [place] [address] Care Team Providers Care Financial Report Service Sales Agent Name Role Phone Billie Blackwood MD Primary Care Provider [phone] Encounter Details Date Type Department Care Team (Late st Contact Info) Description 02/20/2024 Lab Requisition [facility] Physician Group - Pathology Lab [address] [place] [address] René Chavez MD [address] [address] Monoclonal gammopathy Social History Tobacco Use Types Packs/Day Years Used Date Smoking Tobacco: Never Assessed Comments Unknown Sex and Gender Information Value Date Recorded Sex Assigned at Not on file 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 Gender Identity Not on file Sexual Orientation Not on file documented as of this encounter Plan of Treatment Not on file documented as of this encounter Procedures Procedure Name Priority Date/Time Associated Diagnosis Comments FLOW CYTOMETRY BONE MARROW Routine 02/20/2024 9:22 AM CDT Monoclonal gammopathy documented in this encounter Results * FLOW CYTOMETRY BONE MARROW (02/20/2024 9:22 AM CDT) Case Report Flow Cytometry Case: [id number] Authorizing Provider: René Chavez Collected: 02/20/2024 09:22 AM MD Ruben Ordering Location: [facility] - Received: 02/20/2024 02:48 PM Pathology Lab Pathologist: Cristóbal Khan MD Specimen: Bone Marrow 02/21/2024 10:02 AM [facility] Final Diagnosis Bone marrow, flow cytometry: - Abnormal plasma cell population detected (1.5% of overall events) 02/21/2024 10:02 AM [facility] Flow Cytometry Interpretation Viability: 88% B-cells: polytypic, kappa:lambda ratio 1:1 T-cells: not increased Blasts: not increased, ~1% of overall events Plasma cells: atypical, CD38+, CD138+, CD19 loss (aberrant), CD56+ (aberrant), however, no clear light chain restriction. Core tissue sections are pending. A bone marrow aspirate smear prepared from the flow cytometry specimen has been reviewed for senior supplier quality engineer purposes. 02/21/2024 10:02 AM [facility] Flow Cytometry Results Differential Result Comment Flow Cell Count /uL 135,100 Total Viability % 88.0 Lymphocytes % 5 Dim CD45 Region % 6 Monocytes % 13 Granulocytes % 76 02/21/2024 10:02 AM [facility] Reason for test Monoclonal gammopathy 273.1 02/21/2024 10:02 AM [facility] Client Specimen ID # [id number] 02/21/2024 10:02 AM [facility] Number of markers 14 were performed. A-2 Flow CD10 A-3 Flow CD13 A-5 Flow CD20 A-13 Flow CD117 A-14 FLOW CD138 A-1 Flow CD5 A-4 Flow CD19 A-6 Flow CD33 A-7 Flow CD34 A-8 Flow CD45 A-11 Flow CD38 A-12 Flow CD56 A-9 [place]+CD19+ A-10 Lambda+CD19+ 02/21/2024 10:02 AM [facility] Pathologist Location at [facility] 02/21/2024 10:02 AM [facility] Disclaimer Test performed at [facility], [address] [place] [address], [id number]. *The established laboratory minimum viability is 70%. [...] complexity clinical testing. 02/21/2024 10:02 AM CDT [facility] Embedded Images 10:02 AM CDT [facility] Pathology/Cytolo gy BONE MARROW SPECIMEN / Unknown 02/20/2024 9:22 AM CDT 02/20/2024 2:48 PM CDT René Chavez MD LAB - PATHOLOGY/CYT OLOGY ORDERABLES Final Result Performing Organization Address City/State/[facility] de Phone Number [facility] [address] [phone] documented in this encounter Visit Diagnoses Diagnosis Monoclonal gammopathy Monoclonal paraproteinemia documented in this encounter Care Teams Financial Report Service Sales Agent Relationship Specialty Start Date End Date Billie Blackwood MD [address] [place] [address] [address] [place] [phone] PCP - General 07/20/20 documented as of this encounter
--- OUTSIDE RECORDS SUMMARY | 2024-09-29 16:06 | XMS_ITS | Encounter Summary ---
Author Organization [facility] Address 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 Gender Identity Not on file Sexual Orientation Not on file documented as of this encounter Plan of Treatment Upcoming Encounters Date Type Department Care Team (Late st Contact Info) Description 10/20/2024 11:45 AM CDT Office Visit [facility] Oncology and Hematology - [place] [address] [facility] [address] [place] [address] Nahid Hickman MD [address] [facility] [address] [place] [address] 12/16/2024 11:00 AM CDT Office Visit [facility] HEART AND VASCULAR EP AT [facility] [address] [address] [address] [place] [address] Demetrius Bowling, [place] [address] [address] [facility] [address] [place] [address] 02/05/2025 10:45 AM CDT Telephone Check Up [facility] Heart and Vascular At [address] [place] [address] Makenzie Coe FNP [address] [place] [address] 02/12/2025 10:00 AM CDT Office Visit [facility] Heart and Vascular At [address] [place] [address] Kiel Vasquez MD [facility] [address] [facility] [address] [place] [address] documented as of this encounter Visit Diagnoses Not on filedocumented in this encounter Care Teams Railway Head Tender Relationship Specialty Start Date End Date Aliza Bain MD [address] [place] [address] PCP - General Family Practice 11/22/21 documented as of this encounter
--- OUTSIDE RECORDS SUMMARY | 2024-09-29 16:06 | XMS_ITS | Encounter Summary ---
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 Gender Identity Not on file Sexual Orientation Not on file documented as of this encounter Plan of Treatment Upcoming Encounters Date Type Department Care Team (Late st Contact Info) Description 10/20/2024 11:45 AM CDT Office Visit [facility] Oncology and Hematology - [place] [address] [facility] [address] [place] [address] Nahid Hickman MD [address] [facility] [address] [place] [address] 12/16/2024 11:00 AM CDT Office Visit [facility] HEART AND VASCULAR EP AT [address] [place] [address] Demetrius Bowling DNP [facility] [address] [facility] [address] [place] [address] 02/05/2025 10:45 AM CDT Telephone Check Up [facility] Heart and Vascular At [address] [place] [address] Makenzie Coe FNP [facility] [place] [address] 02/12/2025 10:00 AM CDT Office Visit [facility] At [address] [place] [address] Kiel Vasquez MD [facility] [address] [facility] [address] [place] [address] documented as of this encounter Visit Diagnoses Diagnosis Chronic anemia Anemia, unspecified documented in this encounter Care Teams Railroad Detective Relationship Specialty Start Date End Date Aliza Bain MD [address] [facility] [place] [phone] PCP - General Family Practice 11/22/21 documented as of this encounter
--- OUTSIDE RECORDS SUMMARY | 2024-09-29 16:06 | XMS_ITS | Continuity of Care Document ---
Author Organization [facility] Address [address] [place] [address] [address] [place] [address] Phone Care Team Providers Care Model Making Supervisor Name Role Phone Sorin Arteaga Unavailable Unavailable Procedures Procedure Date Eye Exam, New Patient Refraction Advance Directives Directive Yes / No Effective Date File Name No Information Encounters Encounter Description Practice Location Reason(s) For Visit Diagnoses Date Provider Providers Copied on Encounter [facility], [address] [place] [address] [address], [place], [place], [id number], [place] tel:[phone] [address] [facility] No Information [address] [facility] [address] [place] [address], [place], [address], [place]. tel:[phone] Referring Provider: [facility] [address], [place], [place], [facility]. tel:[phone] Family History Family Member Type Diagnosis Age At Onset No Information Payers Payer name Insurance type Covered green party ID Authoriza tialton(s) [employer] [place] Out Of [place] [id number] Social History Type Description Quantity Date Captured [...]
--- OUTSIDE RECORDS SUMMARY | 2024-09-29 16:06 | XMS_ITS | Clinical Summary ---
Author Organization [facility] Candi Beal Address [address] [place] [address] Care Team Providers Care Brand Development Manager Name Role Phone Aliza Bain MD Primary Care Provider Allergies Active Allergy Reactions Criticality Noted Date Comments Penicillins Hives High 07/29/2020 Tolerates Ancef Medications olmesartan (BENICAR) 40 mg tablet Take 40 mg by mouth daily. Medication bottle is Olmesartan Medoxomil 40 MG tab1 tab by mouth daily Active cyanocobalamin (VITAMIN B-12) 100 mcg tablet Take 100 mcg by mouth daily. Active calcium-cholec alciferol (OS-SUSAN 500+D) 500 mg(1,250mg) -200 unit tablet Take 1 Tablet by mouth daily. Active magnesium oxide 250 mg magnesium Tablet Take by mouth. Activ e aspirin (ECOTRIN EC) 81 mg Tablet, Delayed Release (E.C.) Take 81 mg by mouth daily. Active cholecalcifero l, vitamin D3, (VITAMIN D3 ORAL) Take by mouth. Activ e pantoprazole (PROTONIX) 20 mg Tablet, Delayed Release (E.C.) Take 20 mg by mouth 2 times daily. NEEDED Active acetaminophen- codeine (TYLENOL #3) 300-30 mg tablet Take 1 Tablet by mouth every 6 hours as needed. STOPPED Active pyRIDostigmine (MESTINON) 60 mg tablet Take 60 mg by mouth daily. 1/2 TABLET IN THE AM AND 1/2 TAB IN THE PM 08/30/19 Active metoprolol tartrate (LOPRESSOR) 25 mg tablet Take 1 Tablet (25 mg) by mouth 2 times daily. 180 Tablet 3 11/21/19 24 Active Additional Information Patient taking differently: 50 mgOral TWO TIMES DAILY, Reported on 07/21/2024 ferrous sulfate 325 mg (65 mg iron) tablet Take 1 Tablet by mouth 2 times daily. 02/21/20 24 Active fluticasone propionate (FLONASE) 50 mcg/spray [place], Suspension nasal inhaler Administer 2 Sprays in each nostril daily. Active atorvastatin (LIPITOR) 40 mg tablet Take 1 Tablet (40 mg) by mouth daily at bedtime. 90 Tablet 3 03/25/20 24 Active ondansetron (ZOFRAN ODT) 8 mg Tablet, Rapid Dissolve Dissolve 1 tablet on top of tongue then swallow with saliva every 8 hours as needed for nausea or vomiting 30 Tablet 1 04/25/20 24 Active MULTIVITAMIN ORAL Take by mouth. Activ e B.animalis,bif id,infantis,lo ng (PROBIOTIC 4X ORAL) Take by mouth. Activ e clopidogreL (PLAVIX) 75 mg Tablet Starting 07/23: Take 1 Tablet (75 mg) by mouth daily. 90 Tablet 1 10:52 AM MOTOR VEHICLE DISPATCHER 07/23/19 25 Active amLODIPine (NORVASC) 5 mg tablet Take 1 Tablet (5 mg) by mouth daily. 90 Tablet 3 09/13/19 25 Active doxycycline hyclate (VIBRAMYCIN) 100 mg tablet Take 1 capsule 1 hour prior to dental visit. 1 Tablet 11/06/19 25 Active doxycycline hyclate (VIBRAMYCIN) 100 mg capsule Take 1 Capsule (100 mg) by mouth 2 times daily. 1 Capsule 09/13/19 25 025 Discontinued doxycycline hyclate (VIBRAMYCIN) 100 mg capsule Take 1 capsule 1 hour prior to dental visit 180 Capsule 3 09/13/19 25 025 Discontinued Active Problems Patient Care Coordination No te Formatting of this note migh t be different from the original. Kiel Vasquez MD--Hearing Aid Specialist ([facility] @ ) Problem Noted Date Diagnosed Date Presence of Amulet left atrial appendage closure device 07/23/2024 Coronary artery disease 10/19/2023 Mixed hyperlipidemia 01/23/2023 Chronic diastolic dysfunction 12/15/2021 MGUS (monoclonal gammopathy of unknown significa nce) 03/15/2021 Benign hypertension 10/01/2020 Carotid artery disease 10/01/2020 Non-small cell cancer of right lung 08/13/2020 Atrial fibrillation Exertional shortness of breath Encounters Date Type Department Care Team Description 09/29/2024 Orders Only [facility] [address] [place] [address] Nahid Hickman MD Chronic anemia 09/22/2024 8:30 AM CDT Office Visit [facility] [address] [place] [address] Nahid Hickman MD Chronic anemia (Primary Dx) 09/15/2024 Orders Only [facility] [address] [place] [address] Nahid Hickman MD Chronic anemia 09/12/2024 11:45 AM CDT Office Visit [facility] At [address] [place] [address] Makenzie Coe FNP Presence of Amulet left atrial appendage closure device (Primary Dx); Benign hypertension 09/12/2024 Refill [facility] [address] [place] [address] Makenzie Coe FNP 09/12/2024 Refill [facility] [address] [place] [address] Kiel Vasquez MD 09/04/2024 9:01 AM CDT - 09/04/2024 11:59 PM CDT Hospital Encounter [facility] [address] [place] [phone] Kiel Vasquez MD Discharge Disposition: Home or Self Care 09/04/2024 Results Follow-Up [facility] [address] [place] [address] Melanie Swenson RN ECHOCARDIOGRAM W/ CONTRAST AGENT 09/01/2024 Orders Only [facility] - [place] [address] [place] [address] Nahid Hickman MD Chronic anemia 08/27/2024 9:30 AM CDT Office Visit [facility] - [place] [address] [place] [address] Nahid Hickman MD Malignant neoplasm of right upper lobe of lung (CMS/HCC) (Primary Dx); Chronic anemia 08/27/2024 Orders Only [facility] - [address] [place] [address] Nahid Hickman MD 08/26/2024 Orders Only [facility] - [place] [address] [place] [address] Nahid Hickman MD 08/23/2024 External Device Data STL ABSTRACTION Provider, Abstract 08/22/2024 External Device Data STL ABSTRACTION Provider, Abstract 08/21/2024 Telephone [facility] [address] [place] [address] Kiel Vasquez MD stress test 08/20/2024 9:00 AM MOTOR VEHICLE DISPATCHER Anesthesia Event [facility] [address] [place] [phone] Jason Ray MD 08/20/2024 8:29 AM MOTOR VEHICLE DISPATCHER - 08/20/2024 11:59 PM MOTOR VEHICLE DISPATCHER Hospital Encounter [facility] [address] [place] [phone] Kiel Vasquez MD Paik, Han, MD Discharge Disposition: Home or Self Care 08/20/2024 Results Follow-Up [facility] [address] [place] [address] Melanie Swenson RN ECHO TRANSESOPHAGEAL W DOPPLER AND COLOR FLOW 08/20/2024 Results Follow-Up [facility] [address] [place] [address] Melanie Swenson RN NM MYOCARD PERF IMAG SPECT MULT 08/19/2024 9:00 AM MOTOR VEHICLE DISPATCHER - 08/19/2024 11:59 PM MOTOR VEHICLE DISPATCHER Hospital Encounter [facility] [address] [place] [address] Kiel Vasquez MD Discharge Disposition: Home or Self Care 08/18/2024 Orders Only [facility] - [place] [address] [place] [address] Nahid Hickman MD Chronic anemia 08/05/2024 External Device Data STL ABSTRACTION Provider, Abstract 08/04/2024 Orders Only [facility] - [place] [address] [place] [address] Nahid Hickman MD Chronic anemia 07/31/2024 Telephone [facility] [address] [place] [address] Kiel Vasquez MD Medication Question 07/29/2024 External Device Data STL ABSTRACTION Provider, Abstract 07/28/2024 8:30 AM MOTOR VEHICLE DISPATCHER Office Visit [facility] - [address] [place] [address] Nahid Hickman MD Malignant neoplasm of right upper lobe of lung (CMS/HCC) (Primary Dx) 07/28/2024 Orders Only [facility] [address] [place] [address] Nahid Hickman MD 07/23/2024 Cardiology Conference [facility] [address] [place] [address] Margie Leonard RN 07/23/2024 Orders Only [facility] [address] [place] [address] Kiel Vasquez MD Paroxysmal A-fib ([facility]) (Primary Dx); Presence of Amulet left atrial appendage closure device 07/22/2024 External Device Data STL ABSTRACTION Provider, Abstract 07/22/2024 External Device Data STL ABSTRACTION Provider, Abstract 07/22/2024 Orders Only [facility] [address] [place] [address] Makenzie Coe FNP Paroxysmal A-fib ([facility]) (Primary Dx); Shortness of breath 07/21/2024 11:00 AM MOTOR VEHICLE DISPATCHER Anesthesia Event [facility] Economist [address] [place] [phone] Erickson Briceño MD Whitesides, Stephen P, AA-C 07/21/2024 9:53 AM MOTOR VEHICLE DISPATCHER - 07/21/2024 11:46 AM MOTOR VEHICLE DISPATCHER Surgery [facility] [address] [place] [phone] Kiel Vasquez MD Left atrial appendage closure percutaneous 07/21/2024 8:22 AM MOTOR VEHICLE DISPATCHER - 07/22/2024 10:52 AM MOTOR VEHICLE DISPATCHER Hospital Encounter [facility] [address] [place] [phone] Kiel Vasquez MD Paroxysmal A-fib ([facility]) Discharge Disposition: Home or Self Care 2024 11:00 AM MOTOR VEHICLE DISPATCHER - 2024 11:59 PM MOTOR VEHICLE DISPATCHER Hospital Encounter [facility] [phone] [place] [phone] Kiel Vasquez MD Discharge Disposition: Home or Self Care 07/09/2024 External Device Data STL ABSTRACTION Provider, Abstract 07/09/2024 External Device Data STL ABSTRACTION Provider, Abstract 07/08/2024 Abstract [facility] [address] [place] [address] Kiel Vasquez MD 07/07/2024 Orders Only [facility] - [place] [address] [place] [address] Nahid Hickman MD Chronic anemia from Last 3 Months Immunizations Immunization Administration Dates Next Due (PNEUMOVAX 23)(50 YRS [...] on file Legal Sex Female 3:32 PM MOTOR VEHICLE DISPATCHER Gender Identity Not on file Sexual Orientation Not on file Last Filed Vital Signs Vital Sign Reading Time Taken Comments Blood Pressure 167/77 09/22/2024 8:51 AM CDT Pulse 50 09/22/2024 8:50 AM CDT Temperature 35.8 C (96.5 F) 09/22/2024 8:50 AM CDT Respiratory Rate 15 09/22/2024 8:50 AM CDT Oxygen Saturation 95% 09/22/2024 8:50 AM CDT Inhaled Oxygen Concentration - - Weight 55.5 kg (122 lb 6.4 oz) 09/22/2024 8:50 A M CDT Height 160 cm (5' 3 ) 07/21/2024 8:46 AM MOTOR VEHICLE DISPATCHER Body Mass Index 21.68 07/21/2024 8:46 AM MOTOR VEHICLE DISPATCHER Plan of Treatment Upcoming Encounters Date Type Department Care Team (Late st Contact Info) Description 10/20/2024 11:45 AM CDT Office Visit [facility] - [place] [address] [place] [phone] Nahid Hickman MD [address] [facility] [address] [place] [address] 12/16/2024 11:00 AM CDT Office Visit [facility] AT [address] [place] [address] Demetrius Bowling DNP [facility] [address] [place] [address] 02/05/2025 10:45 AM CDT Telephone Check Up [facility] At [address] [place] [address] Makenzie Coe [place] [phone] 02/12/2025 10:00 AM CDT Office Visit [facility] At [address] [place] [phone] Kiel Vasquez MD [facility] [address] [place] [phone] Health Maintenance Due Date Last Done Comments DTAP/TDAP/TD VACCINES (1 - Tdap) 1963 OSTEOPOROSIS SCREENING 2009 ZOSTER VACCINE (2 of 3) 07/21/2016 05/26/2016 RSV VACCINE (60+ or ) (1 - 1-dose 75+ series) 2019 INFLUENZA VACCINE (#1) 2024 , 03/17/2018, 04/26/2017 [place] Prev entative Visit/Annual Wellness Visit 06/18/2024 PNEUMOCOCCAL VACCINE 50+ YEARS Completed 10/04/2021 , 04/07/2021 Medical Devices Implanted Type Area Inner Layer Scrubber Tender Device Identifier Shelf Expiration Date Model / Serial / Lot Occluder Amplatzer 28mm Lt Atrial Chantell Cv Amulet 0-Iwx0-394-0 28 - [id number] Implanted:Qt y: 1 on 07/21/2024 by Kiel Vasquez MD at [facility] Cardiovascular Device N/A: Heart RANDOLPH- VASC DEVICE [id number] 12/15/2028 9-[id number] 10-028 / / [id number] Clip Ligating Horizon Med Ti [id number] - [facility] - [id number] Implanted:Qt y: 2 on 08/31/2020 by Edinson Ferrell MD at [facility] Clip Right: Chest TELEFLEX- WECK CLOSURE SYS 01/11/2025 [id number] / / [id number] Clip Ligating Horizon Lg Ti 196356 - [facility] - [id number] Implanted:Qt y: 1 on 08/31/2020 by Edinson Ferrell MD at [facility] Clip Right: Chest TELEFLEX- WECK CLOSURE SYS 12/14/2024 [id number] / / [id number] Internet Project Manager Clip Surgiclip Iii Ti Anthony Sm 9in 194877 - [id number] Implanted:Qt y: 1 on 10/22/2023 by Edinson Ferrell MD at [facility] Clip N/A: Chest [employer] - COVIDIEN [id number] 03/17/2028 [id number] / / [id number] Internet Project Manager Clip Surgiclip Iii Ti Anthony Sm 9in 902970 - [id number] Implanted:Qt y: 1 on 10/22/2023 by Edinson Ferrell MD at [facility] Clip N/A: Chest [employer] - COVID[employer]EN [id number] 04/17/2028 [id number] / / [id number] Clip Ligating Horizon Med Ti 114538 - [facility] - [id number] Implanted:Qt y: 2 on 10/22/2023 by Edinson Ferrell MD at [facility] Clip N/A: Chest TELEFLEX- WECK CLOSURE SYS [id number] 05/28/2028 [id number] / / [id number] Clip Ligating Horizon Sm Ti 601229 - [facility] - [id number] Implanted:Qt y: 1 on 10/22/2023 by Edinson Ferrell MD at [facility] Clip N/A: Chest TELE[employer] INC 04/16/2028 [id number] / / [id number] Internet Project Manager Clip Surgiclip Iii Ti Anthony Sm 9in 353318 - [id number] Implanted:Qt y: 1 on 10/22/2023 by Edinson Ferrell MD at [facility] Clip Left: Leg [employer] COVIDIEN [id number] 04/17/2028 [id number] / / [id number] Internet Project Manager Clip Surgiclip Iii Ti Anthony Sm 9in 143487 - [id number] Implanted:Qt y: 1 on 10/22/2023 by Edinson Ferrell MD at [facility] Clip N/A: Chest [employer] - COVIDIEN [id number] 03/17/2028 [id number] / / [id number] Internet Project Manager Clip Surgiclip Ii Anthony 9.75in 703297 - [id number] Implanted:Qt y: 1 on 10/22/2023 by Edinson Ferrell MD at [facility] Clip N/A: Chest [employer] - COVIDIEN [id number] 03/17/2028 [id number] / / [id number] Dev Vns Vasc Clsr Vascade Mvp St 442-241t-39s - [id number] Implanted:Qt y: 1 on 07/21/2024 by Kiel Vasquez MD at [facility] Closure Device Right: Groin [employer] [id number] 03/28/2026 800-612C -10U / / [id number] Marker [employer] Fm-Pm-1 - [id number] Implanted:Qt y: 2 on 10/22/2023 by Edinson Ferrell MD at [facility] Other N/A: Heart [employer] FM-PM-1 / / Screws Right Ankle Suture Tape Umbilical 30in U11t - Old - [id number] Implanted:Qt y: 1 on 08/31/2020 by Edinson Ferrell MD at [facility] Right: Lung [employer] 10/15/2024 [id number] / / [id number] Description:Small piece of u mbilical tape used to reinforce staple line between upper and lower fissure. charged in supply list Explanted Type Area Inner Layer Scrubber Tender Device Identifier Shelf Expiration Date Model / Serial / Lot Hemostatic Surgicel 4x8in 1952 - [id number] Explanted:Qty : 1 on 08/31/2020 by Edinson Ferrell MD at [facility] Hemostatic Right: Lung [employer] [id number] 07/18/20241951 / / [id number] Description:One-third left i n chest, the rest removed by surgeon Procedures Procedure Name Priority Date/Time Associated Diagnosis Comments ECHOCARDIOGRAM W/ CONTRAST AGENT Routine 09/04/2024 10:11 AM CDT Shortness of breath Jaw pain Coronary artery disease, unspecified vessel or lesion type, unspecified whether angina present, unspecified whether [place] tribe or transplanted heart BASIC METABOLIC PANEL Routine 08/26/2024 2:50 PM CDT COMPREHENSIVE METABOLIC PANEL Routine 08/26/2024 9:05 AM CDT ECHO TRANSESOPHAGEAL W DOPPLER AND COLOR FLOW Routine 08/20/2024 9:30 AM MOTOR VEHICLE DISPATCHER Paroxysmal A-fib (CMS/HCC) Presence of Amulet left atrial appendage closure device NM MYOCARD PERF IMAG SPECT MULT Routine 08/19/2024 11:46 AM MOTOR VEHICLE DISPATCHER Shortness of breath Jaw pain Coronary artery disease, unspecified vessel or lesion type, unspecified whether angina present, unspecified whether [place]sem[place]ian tribe or transplanted heart HM EJECTION FRACTION Routine 08/19/2024 11:46 AM MOTOR VEHICLE DISPATCHER CBC WITH DIFFERENTIAL Routine 07/28/2024 8:44 AM MOTOR VEHICLE DISPATCHER CBC WITH DIFFERENTIAL Routine 07/24/2024 1:46 PM MOTOR VEHICLE DISPATCHER Paroxysmal A-fib (CMS/HCC) Shortness of breath TELEMETRY REPORT 07/23/2024 1:19 PM MOTOR VEHICLE DISPATCHER HEMOGLOBIN AND HEMATOCRIT Routine 07/22/2024 5:15 AM MOTOR VEHICLE DISPATCHER ECHO LIMITED WO DOPPLER Pending Discharge 07/21/2024 3:57 PM MOTOR VEHICLE DISPATCHER MD ANES INSERT CATH, ART, PERCUT, SHORTTERM Routine 07/21/2024 12:52 PM MOTOR VEHICLE DISPATCHER ECHO TRANSESOPHAGEAL W DOPPLER AND COLOR FLOW Routine 07/21/2024 12:36 PM MOTOR VEHICLE DISPATCHER Paroxysmal A-fib (CMS/HCC) LEFT ATRIAL APPENDAGE CLOSURE PERCUTANEOUS Routine 07/21/2024 12:26 PM MOTOR VEHICLE DISPATCHER Paroxysmal A-fib (CMS/HCC) POC ACTIVATED CLOTTING TIME Routine 07/21/2024 12:05 PM MOTOR VEHICLE DISPATCHER MD ECHO TRANSESOPHAG R-T 2D W/PRB IMG ACQUISJ I&R Routine 07/21/2024 11:42 AM MOTOR VEHICLE DISPATCHER EKG 12-LEAD Routine 2024 11:49 AM MOTOR VEHICLE DISPATCHER PREPARE RED BLOOD CELLS Routine 2024 11:47 AM MOTOR VEHICLE DISPATCHER BLOOD BANK AB IDENT Routine 2024 11:47 AM MOTOR VEHICLE DISPATCHER ANTIBODY IDENTIFICATION ELUATE Routine 2024 11:47 AM MOTOR VEHICLE DISPATCHER DIRECT FATOUMATA IGG Routine 2024 11:47 AM MOTOR VEHICLE DISPATCHER DIRECT FATOUMATA C3 Routine 2024 11:47 AM MOTOR VEHICLE DISPATCHER DIRECT ANTIGLOBULIN TEST Routine 2024 11:47 AM MOTOR VEHICLE DISPATCHER TYPE AND SCREEN Routine 2024 11:47 AM MOTOR VEHICLE DISPATCHER DIFFERENTIAL, MANUAL Routine 2024 11:47 AM MOTOR VEHICLE DISPATCHER PROTIME-INR Stat 2024 11:47 AM MOTOR VEHICLE DISPATCHER CBC WITH DIFFERENTIAL Routine 2024 11:47 AM MOTOR VEHICLE DISPATCHER BASIC METABOLIC PANEL Routine 2024 11:47 AM MOTOR VEHICLE DISPATCHER from Last 3 Months Results * ECHOCARDIOGRAM W/ CONTRAST AGENT (09/04/2024 10:11 AM CDT) EJECTION FRACTION 65 INTERFACE SYSTEM 09/04/2024 8:34 AM CDT Narrative INTERFACE SYSTEM - 09/04/2024 10:55 [place] [address] [email or web address] Transthoracic Echocardiogram Patient: Zee Martinez Study ID: [id number] Gender: F : 1945 Age: 79 Race: CAU Height 160cm Study Date: 09/04/2024 Weight: 56.9kg Access. #: [id number] BP: *Referring Physician:Kiel Aguillon Jacob *Ordering Physician:* Kiel Vasquez mainframe systems administrator: Nurse: Indications: Coronary artery disease. SOB / CONDE. STUDY CONCLUSIONS: SUMMARY: - Left ventricle: The cavity size was normal. Wall thickness was normal. Global systolic function is normal. The estimated ejection fraction is 60-65%. There are no gross regional wall motion abnormalities. - Right ventricle: Not well visualized. The cavity size is normal. Systolic function is normal. - Left atrium: The atrium is dilated. - Aortic valve: Mild aortic sclerosis without evidence of stenosis. - Mitral valve: Mild regurgitation. - Pulmonary arteries: The peak systolic pressure is 26mm Hg. - Patient bradycardic throughout study with heart rates in the mid to upper 40's on rhythm strip . - The study was technically limited and difficult to interpret due to poor acoustic window availability. Intravenous contrast (Definity) was administered to enhance regional wall motion assessment and better define the endocardial border. Cardiac Anatomy: LEFT VENTRICLE: The cavity size was normal. Wall thickness was normal. Global systolic function is normal. The estimated ejection fraction is 60-65%. There are no gross regional wall motion abnormalities. AORTIC VALVE: The valve leaflets were not well visualized. . The leaflets are mildly thickened and calcified. No significant regurgitation. The mean systolic gradient is 3mm Hg. The peak systolic gradient is 4mm Hg. The LVOT to aortic valve VTI ratio is 0.59. The ratio of LVOT to aortic valve peak velocity is 0.6. AORTA: Aortic root: The root is normal-sized. MITRAL VALVE: The valve appears to be grossly normal. Mild regurgitation. The peak diastolic gradient is 3mm Hg. LEFT ATRIUM: Not well visualized. The atrium is dilated. LAAO device visualized on parasternal long axis images. RIGHT VENTRICLE: Not well visualized. The cavity size is normal. Systolic function is normal. PULMONIC VALVE: Not well visualized. No significant regurgitation. TRICUSPID VALVE: The valve appears to be grossly normal. No significant regurgitation. RIGHT ATRIUM: The atrium was normal in size. SYSTEMIC VEINS: Inferior vena cava: The IVC is normal-sized. Respirophasic diameter changes are in the normal range (> 50%). PERICARDIUM: There is no pericardial effusion. Measurements Left ventricle Value Ref IVS, ED, LAX (H) 1.1 cm 0.6 - 0.9 ROCIO, LAX (L) 2.7 cm 3.8 - 5.2 ROCIO/bsa, LAX (L) 1.7 cm/m^2 2.3 - 3.1 ROCIO, LAX chord (N) 4.5 cm 3.8 - 5.2 ESD, LAX chord (N) 2.7 cm 2.2 - 3.5 ROCIO/bsa, LAX chord (N) 2.8 cm/m^2 2.3 - 3.1 ESD/bsa, LAX chord (N) 1.7 cm/m^2 1.3 - 2.1 FS, LAX chord (N) 40 % 27 - 45 IVS, ED (H) 1.1 cm 0.6 - 0.9 PW, ED (N) 0.9 cm 0.6 - 0.9 EDV, 2-p (N) 68 ml 46 - 106 ESV, 2-p (N) 24 ml 14 - 42 EF, 2-p (N) 64 % 54 - 74 SV, 2-p 44 ml --------- SV/bsa, 2-p 27.7 ml/m^2 --------- E', lat john, TDI (L) 4.9 cm/sec >=10.0 E/e', lat john, TDI (H) 17 <=13 E', med john, TDI (L) 5.2 cm/sec >=7.0 E/e', med john, TDI 16 --------- E', avg, TDI 5.1 cm/sec --------- E/e', avg, TDI (H) 16 <=14 LVOT Value Ref Diam, S 2.0 cm --------- Area 3.1 cm^2 --------- Peak lance, S 0.61 m/sec --------- VTI, S 16.1 cm --------- Right ventricle Value Ref TAPSE, MM (L) 1.0 cm >=1.7 Pressure, S 26 mm Hg --------- S' lateral (L) 3.9 cm/sec >=9.5 Left atrium Value Ref AP dim, ES (N) 3.5 cm 2.7 - 3.8 AP dim index, ES (N) 2.2 cm/m^2 1.5 - 2.3 SI dim, A4C 4.2 cm --------- Area ES, A4C (N) 15 cm^2 <=20 Area/bsa ES, A4C 9.43 cm^2/m^2 --------- LA/Ao root ratio 1.21 --------- Right atrium Value Ref SI dim, ES, A4C (N) 3.7 cm 3.4 - 5.3 SI dim/bsa, ES, A4C (N) 2.3 cm/m^2 1.9 - 3.1 Area, ES, A4C (N) 10 cm^2 10 - 18 Vol, ES, 1-p A4C 23 ml --------- Vol/bsa, ES, 1-p A4C (N) 14 ml/m^2 9 - 33 Aortic valve Value Ref Peak v, S 1 m/sec --------- Mean v, S 0.8 m/sec --------- VTI, S 27.1 cm --------- Mean grad, S 3 mm Hg --------- Peak grad, S 4 mm Hg --------- LVOT/AV, VTI ratio 0.59 --------- OLRIN/bsa, VTI 1.18 cm^2/m^2 --------- LVOT/AV, Vpeak ratio 0.6 --------- ORLIN, Vmax 1.9 cm^2 --------- ORLIN/bsa, Vmax 1.18 cm^2/m^2 --------- Mitral valve Value Ref Peak E 0.83 m/sec --------- Peak A 0.29 m/sec --------- Decel time 313 ms --------- PHT 92 ms --------- Peak grad, D 3 mm Hg --------- Peak E/A ratio 2.9 --------- MVA, PHT 2.4 cm^2 --------- MVA/bsa, PHT 1.5 cm^2/m^2 --------- Pulmonic valve Value Ref Peak v, S 0.53 m/sec --------- Peak grad, S 1 mm Hg --------- Tricuspid valve Value Ref TR peak v (N) 2.3 m/sec <=2.8 Peak RV-RA grad, S 21 mm Hg --------- Aortic root Value Ref Root diam, 2.9 cm --------- Pulmonary artery Value Ref Pressure, S 26 mm Hg --------- Systemic veins Value Ref Estimated RA pressure 5 mm Hg --------- Legend: (L) and (H) berny values outside specified reference range. (N) gifford values inside specified reference range. Procedure data: Procedure information: A transthoracic echocardiogram was performed. The study was technically limited due to poor acoustic window availability. Scanning was performed from the parasternal, apical, and subcostal acoustic windows. Intravenous contrast (Definity) was administered to enhance regional wall motion assessment and better define the endocardial border. Transthoracic echocardiogram. Complete 2D, complete spectral Doppler, and color Doppler. Birthdate: Patient birthdate: 1945. Age: Patient is 79year(s) old. Sex: gender: female. Height: 160cm. 63in. Weight: 56.9kg. 125.4lb. Body mass index: 22.2kg/m^2. Body surface area: 1.59m^2. Study date: Study date: 09/04/2024. Study time: 08:34 AM. Prepared and Electronically Authenticated Haylee Rosario [id number]:47 Procedure Note Haylee Rosario MD - 09/04/2024 [place] [address] [email or web address] Transthoracic Echocardiogram Patient: Zee Martinez Study ID: [id number] Gender: F : 1945 Age: 79 Race: CAU Height 160cm Study Date: 09/04/2024 Weight: 56.9kg Access. #: [id number] BP: *Referring Physician:* Kiel Vasquez Jacob *Ordering Physician:* Kiel Vasquez mainframe systems administrator: Nurse: Indications: Coronary artery disease. SOB / CONDE. STUDY CONCLUSIONS: SUMMARY: - Left ventricle: The cavity size was normal. Wall thickness was normal. Global systolic function is normal. The estimated ejection fraction is 60-65%. There are no gross regional wall motion abnormalities. - Right ventricle: Not well visualized. The cavity size is normal.Systolic function is normal. - Left atrium: The atrium is dilated. - Aortic valve: Mild aortic sclerosis without evidence of stenosis. - Mitral valve: Mild regurgitation. - Pulmonary arteries: The peak systolic pressure is 26mm Hg. - Patient bradycardic throughout study with heart rates in the mid toupper 40's on rhythm strip . - The study was technically limited and difficult to interpret due topoor acoustic window availability. Intravenous contrast (Definity) was administered to enhance regional wall motion assessment and betterdefine the endocardial border. Cardiac Anatomy: LEFT VENTRICLE: The cavity size was normal. Wall thickness was normal.Global systolic function is normal. The estimated ejection fraction is 60-65%.There are no gross regional wall motion abnormalities. AORTIC VALVE: The valve leaflets were not well visualized. . Theleaflets are mildly thickened and calcified. No significant regurgitation. Themean systolic gradient is 3mm Hg. The peak systolic gradient is 4mm Hg. TheLVOT to aortic valve VTI ratio is 0.59. The ratio of LVOT to aortic valve peak velocity is 0.6. AORTA: Aortic root: The root is normal-sized. MITRAL VALVE: The valve appears to be grossly normal. Mildregurgitation. The peak diastolic gradient is 3mm Hg. LEFT ATRIUM: Not well visualized. The atrium is dilated. LAAO device visualized on parasternal long axis images. RIGHT VENTRICLE: Not well visualized. The cavity size is normal.Systolic function is normal. PULMONIC VALVE: Not well visualized. No significant regurgitation. TRICUSPID VALVE: The valve appears to be grossly normal. Nosignificant regurgitation. RIGHT ATRIUM: The atrium was normal in size. SYSTEMIC VEINS: Inferior vena cava: The IVC is normal-sized. Respirophasic diameterchanges are in the normal range (> 50%). PERICARDIUM: There is no pericardial effusion. Measurements Left ventricle Value Ref IVS, ED, LAX (H) 1.1 cm 0.6 - 0.9 ROCIO, LAX (L) 2.7 cm 3.8 - 5.2 ROCIO/bsa, LAX (L) 1.7 cm/m^2 2.3 - 3.1 ROCIO, LAX chord (N) 4.5 cm 3.8 - 5.2 ESD, LAX chord (N) 2.7 cm 2.2 - 3.5 ROCIO/bsa, LAX chord (N) 2.8 cm/m^2 2.3 - 3.1 ESD/bsa, LAX chord (N) 1.7 cm/m^2 1.3 - 2.1 FS, LAX chord (N) 40 % 27 - 45 IVS, ED (H) 1.1 cm 0.6 - 0.9 PW, ED (N) 0.9 cm 0.6 - 0.9 EDV, 2-p (N) 68 ml 46 - 106 ESV, 2-p (N) 24 ml 14 - 42 EF, 2-p (N) 64 % 54 - 74 SV, 2-p 44 ml --------- SV/bsa, 2-p 27.7 ml/m^2 --------- E', lat john, TDI (L) 4.9 cm/sec >=10.0 E/e', lat john, TDI (H) 17 <=13 E', med john, TDI (L) 5.2 cm/sec >=7.0 E/e', med john, TDI 16 --------- E', avg, TDI 5.1 cm/sec --------- E/e', avg, TDI (H) 16 <=14 LVOT Value Ref Diam, S 2.0 cm --------- Area 3.1 cm^2 --------- Peak lance, S 0.61 m/sec --------- VTI, S 16.1 cm --------- Right ventricle Value Ref TAPSE, MM (L) 1.0 cm >=1.7 Pressure, S 26 mm Hg --------- S' lateral (L) 3.9 cm/sec >=9.5 Left atrium Value Ref AP dim, ES (N) 3.5 cm 2.7 - 3.8 AP dim index, ES (N) 2.2 cm/m^2 1.5 - 2.3 SI dim, A4C 4.2 cm --------- Area ES, A4C (N) 15 cm^2 <=20 Area/bsa ES, A4C 9.43 cm^2/m^2 --------- LA/Ao root ratio 1.21 --------- Right atrium Value Ref SI dim, ES, A4C (N) 3.7 cm 3.4 - 5.3 SI dim/bsa, ES, A4C (N) 2.3 cm/m^2 1.9 - 3.1 Area, ES, A4C (N) 10 cm^2 10 - 18 Vol, ES, 1-p A4C 23 ml --------- Vol/bsa, ES, 1-p A4C (N) 14 ml/m^2 9 - 33 Aortic valve Value Ref Peak v, S 1 m/sec --------- Mean v, S 0.8 m/sec --------- VTI, S 27.1 cm --------- Mean grad, S 3 mm Hg --------- Peak grad, S 4 mm Hg --------- LVOT/AV, VTI ratio 0.59 --------- ORLIN/bsa, VTI 1.18 cm^2/m^2 --------- LVOT/AV, Vpeak ratio 0.6 --------- ORLIN, Vmax 1.9 cm^2 --------- ORLIN/bsa, Vmax 1.18 cm^2/m^2 --------- Mitral valve Value Ref Peak E 0.83 m/sec --------- Peak A 0.29 m/sec --------- Decel time 313 ms --------- PHT 92 ms --------- Peak grad, D 3 mm Hg --------- Peak E/A ratio 2.9 --------- MVA, PHT 2.4 cm^2 --------- MVA/bsa, PHT 1.5 cm^2/m^2 --------- Pulmonic valve Value Ref Peak v, S 0.53 m/sec --------- Peak grad, S 1 mm Hg --------- Tricuspid valve Value Ref TR peak v (N) 2.3 m/sec <=2.8 Peak RV-RA grad, S 21 mm Hg --------- Aortic root Value Ref Root diam, 2.9 cm --------- Pulmonary artery Value Ref Pressure, S 26 mm Hg --------- Systemic veins Value Ref Estimated RA pressure 5 mm Hg --------- Legend: (L) and (H) berny values outside specified reference range. (N) gifford values inside specified reference range. Procedure data: Procedure information: A transthoracic echocardiogram was performed.The study was technically limited due to poor acoustic window availability. Scanning was performed from the parasternal, apical, and subcostalacoustic windows. Intravenous contrast (Definity) was administered to enhanceregional wall motion assessment and better define the endocardial border. Transthoracic echocardiogram. Complete 2D, complete spectral Doppler,and color Doppler. Birthdate: Patient birthdate: 1945. Age: Patientis 79year(s) old. Sex: gender: female. Height: 160cm. 63in.Weight: 56.9kg. 125.4lb. Body mass index: 22.2kg/m^2. Body surface area: 1.59m^2. Study date: Study date: 09/04/2024. Study time: 08:34 AM. Prepared and Electronically Authenticated Haylee Rosario [id number]:47 Kiel Vasquez MD US ORDERABLES Final Resul t INTERFACE SYSTEM Refer to clinic/hospital department * BASIC METABOLIC PANEL (08/26/2024 2:50 PM CDT) Only the most recent of2 resultswithin the time period is included. Blood Nahid Hickman MD CHEMISTRY ORDERABLES Final Resu lt * COMPREHENSIVE METABOLIC PANEL (08/26/2024 9:05 AM CDT) Blood Nahid Hickman MD CHEMISTRY ORDERABLES Final Resu lt * ECHO TRANSESOPHAGEAL W DOPPLER AND COLOR FLOW (08/20/2024 9:30 AM MOTOR VEHICLE DISPATCHER) Only the most recent of2 resultswithin the time period is included. EJECTION FRACTION EF: INTERFACE SYSTEM 08/20/2024 8:38 AM MOTOR VEHICLE DISPATCHER Narrative INTERFACE SYSTEM - 08/20/2024 10:13 AM MOTOR VEHICLE DISPATCHER [address] [place] [address] [email or web address] Transesophageal Echocardiogram Patient: Zee Martinez Study ID: ECHO TRANSKASIAA Gender: F : 1945 Age: 79 Race: GROVER Height 160cm Study Date: 08/20/2024 Weight: 54.9kg Access. #: [id number] BP: 115 / 66 *Referring Physician:* Kiel Vasquez Jacob *Ordering Physician:* Kiel Vasquez mainframe systems administrator: Nurse: Indications: Re-assess Amulet Placement. STUDY CONCLUSIONS: SUMMARY: - Left ventricle: The cavity size was normal. Wall thickness was increased. Global systolic function is normal. The estimated ejection fraction is 60-65%. - Aortic valve: Trivial regurgitation. - Descending aorta: There is severe diffuse disease. - Mitral valve: Moderate regurgitation. - Left atrium: Well-seated AMULET device at the opening o the Left Atrial Appendage; without thrombus or Color Doppler around the device. The atrium is dilated. No evidence of thrombus in the atrium or atrial appendage. No evidence of thrombus in the atrial cavity or appendage. - Right ventricle: The cavity size is normal. Systolic function is normal. - Atrial septum: Residual Trans-Septal puncutrer with small left to right shunting seen with Color Doppler. No right to left shunting seen by Bubble Study. Cardiac Anatomy: LEFT VENTRICLE: The cavity size was normal. Wall thickness was increased. Global systolic function is normal. The estimated ejection fraction is 60-65%. Wall motion is normal; there are no regional wall motion abnormalities. AORTIC VALVE: Trileaflet. The leaflets are mildly thickened. Trivial regurgitation. AORTA: Descending aorta: There is severe diffuse disease. The aorta was normal. MITRAL VALVE: Structurally normal valve. Moderate regurgitation. LEFT ATRIUM: Well-seated AMULET device at the opening o the Left Atrial Appendage; without thrombus or Color Doppler around the device. The atrium is dilated. No evidence of thrombus in the atrium or atrial appendage. No evidence of thrombus in the atrial cavity or appendage. No spontaneous echo contrast is observed. ATRIAL SEPTUM: The septum is normal. Residual Trans-Septal puncutrer with small left to right shunting seen with Color Doppler. No right to left shunting seen by Bubble Study. PULMONARY VEINS: Well visualized, appeared normal. RIGHT VENTRICLE: The cavity size is normal. Systolic function is normal. PULMONIC VALVE: Structurally normal valve. No significant regurgitation. TRICUSPID VALVE: Structurally normal valve. No significant regurgitation. RIGHT ATRIUM: The atrium was normal in size. SYSTEMIC VEINS: Superior vena cava: The SVC is normal. PERICARDIUM: There is no pericardial effusion. Procedure data: The patient was transported by wheelchair. Bracelet Study status: Routine. Objective: Screening based upon demographic and risk factors. Consent: The risks, benefits, and alternatives to the procedure were explained to the patient and informed consent was obtained. Procedure information: The patient arrived at the laboratory in a fasting state. Intravenous access was obtained. Surface ECG leads and pulse oximetric signals were monitored. Sedation was administered by anesthesiology staff. Sedation with propofol. A transesophageal echocardiogram was performed. Topical anesthesia was obtained using viscous lidocaine. Anadult multiplane transesophageal probe was inserted in 1 attempt(s)by the attending cardiologistwithout difficulty. Image quality was excellent. No intracardiac thrombus was identified. Study completion: There were no complications. Diagnostic transesophageal echocardiogram. 2D, limited spectral Doppler, and color Doppler. Birthdate: Patient birthdate: 1945. Age: Patient is 79year(s) old. Sex: gender: female. Height: 160cm. 63in. Weight: 54.9kg. 121lb. Body mass index: 21.4kg/m^2. Body surface area: 1.56m^2. Blood pressure: 115/66 Patient status: Outpatient. Study date: Study date: 08/20/2024. Study time: 08:38 AM. Location: Echo laboratory. Prepared and Electronically Authenticated Monroe Howell M.D. [id number] Procedure Note Monroe Howell MD - 08/20/[address] [address] [email or web address] Transesophageal Echocardiogram Patient: Zee Martinez Study ID: ECHO TRANSESOPHA Gender: F : 1945 Age: 79 Race: GROVER Height 160cm Study Date: 08/20/2024 Weight: 54.9kg Access. #: [id number] BP: 115 / 66 *Referring Physician:Kiel Aguillon Jacob *Ordering Physician:Kiel Aguillon mainframe systems administrator: Nurse: Indications: Re-assess Amulet Placement. STUDY CONCLUSIONS: SUMMARY: - Left ventricle: The cavity size was normal. Wall thickness wasincreased. Global systolic function is normal. The estimated ejection fraction is 60-65%. - Aortic valve: Trivial regurgitation. - Descending aorta: There is severe diffuse disease. - Mitral valve: Moderate regurgitation. - Left atrium: Well-seated AMULET device at the opening o the LeftAtrial Appendage; without thrombus or Color Doppler around the device. Theatrium is dilated. No evidence of thrombus in the atrium or atrial appendage.No evidence of thrombus in the atrial cavity or appendage. - Right ventricle: The cavity size is normal. Systolic function isnormal. - Atrial septum: Residual Trans-Septal puncutrer with small left toright shunting seen with Color Doppler. No right to left shunting seen byBubble Study. Cardiac Anatomy: LEFT VENTRICLE: The cavity size was normal. Wall thickness wasincreased. Global systolic function is normal. The estimated ejection fraction is60-65%. Wall motion is normal; there are no regional wall motion abnormalities. AORTIC VALVE: Trileaflet. The leaflets are mildly thickened. Trivial regurgitation. AORTA: Descending aorta: There is severe diffuse disease. The aorta was normal. MITRAL VALVE: Structurally normal valve. Moderate regurgitation. LEFT ATRIUM: Well-seated AMULET device at the opening o the Left Atrial Appendage; without thrombus or Color Doppler around the device. The atriumis dilated. No evidence of thrombus in the atrium or atrial appendage. No evidence of thrombus in the atrial cavity or appendage. No spontaneousecho contrast is observed. ATRIAL SEPTUM: The septum is normal. Residual Trans-Septal puncutrerwith small left to right shunting seen with Color Doppler. No right to left shunting seen by Bubble Study. PULMONARY VEINS: Well visualized, appeared normal. RIGHT VENTRICLE: The cavity size is normal. Systolic function isnormal. PULMONIC VALVE: Structurally normal valve. No significantregurgitation. TRICUSPID VALVE: Structurally normal valve. No significantregurgitation. RIGHT ATRIUM: The atrium was normal in size. SYSTEMIC VEINS: Superior vena cava: The SVC is normal. PERICARDIUM: There is no pericardial effusion. Procedure data: The patient was transported by wheelchair. [employer] Study status:Routine. Objective: Screening based upon demographic and risk factors. Consent:The risks, benefits, and alternatives to the procedure were explained to the patient and informed consent was obtained. Procedure information: The patient arrived at the laboratory in a fasting state. Intravenous accesswas obtained. Surface ECG leads and pulse oximetric signals were monitored. Sedation was administered by anesthesiology staff. Sedation with propofol.A transesophageal echocardiogram was performed. Topical anesthesia wasobtained using viscous lidocaine. Anadult multiplane transesophageal probe wasinserted in 1 attempt(s)by the attending cardiologistwithout difficulty. Imagequality was excellent. No intracardiac thrombus was identified. Studycompletion: There were no complications. Diagnostic transesophageal echocardiogram. 2D, limited spectral Doppler, and color Doppler.Birthdate: Patient birthdate: 1945. Age: Patient is 79year(s) old. Sex: gender: female. Height: 160cm. 63in. Weight: 54.9kg. 121lb. Bodymass index: 21.4kg/m^2. Body surface area: 1.56m^2. Blood pressure: 115/66 Patient status: Outpatient. Study date: Study date:08/20/2024. Study time: 08:38 AM. Location: Echo laboratory. Prepared and Electronically Authenticated Monroe Howell M.D. [id number] us Kiel Vasquez MD ORDERABLES Final Resul t INTERFACE SYSTEM Refer to clinic/hospital department * NM MYOCARD PERF IMAG SPECT MULT (08/19/2024 11:46 AM MOTOR VEHICLE DISPATCHER) 08/19/2024 11:4 6 AM MOTOR VEHICLE DISPATCHER Impressions INTERFACE SYSTEM - 08/19/2024 3:42 PM MOTOR VEHICLE DISPATCHER IMPRESSION: 1. Small region of reduced perfusion in the apical septal segment on rest images. Otherwise resting myocardial perfusion imaging is normal. 2. Stress imaging was not performed due to resting junctional bradycardia on EKG. Narrative INTERFACE SYSTEM - 08/19/2024 3:42 PM MOTOR VEHICLE DISPATCHER Procedure Type: One Day Myoview Regadenoson Resting perfusion study. Date of Procedure: 08/19/2024 11:46 AM Clinical Indication: This 79 years old Female with coronary artery disease presents for evaluation of dyspnea on exertion. Height: 5 feet 3 inches; Weight: 121 pounds Pharmacologic Stress Procedure: EKG: The baseline electrocardiogram showed junctional bradycardia, possible old anteroseptal TN, minor nonspecific ST depression. Nuclear Imaging Protocol: Myocardial perfusion imaging was performed at rest approximately 30 minutes following the intravenous injection of 5.89 mCi TC99m Myoview. Findings: The overall quality of the study is good. Rotating planar images reveal no motion artifact. The left ventricular size is normal. The resting SPECT images demonstrate a small region of reduced radiotracer uptake in the apical septal segment, otherwise normal myocardial perfusion imaging. Procedure Note Sergey Acosta MD - 08/19/2024 Procedure Type: One Day Myoview Regadenoson Resting perfusion study. Date of Procedure: 08/19/2024 11:46 AM Clinical Indication: This 79 years old Female with coronary artery disease presents for evaluation of dyspnea on exertion. Height: 5 feet 3 inches; Weight: 121 pounds Pharmacologic Stress Procedure: EKG: The baseline electrocardiogram showed junctional bradycardia, possible old anteroseptal TN, minor nonspecific ST depression. Nuclear Imaging Protocol: Myocardial perfusion imaging was performed at rest approximately 30 minutes following the intravenous injection of 5.89 mCi TC99m Myoview. Findings: The overall quality of the study is good. Rotating planar images reveal no motion artifact. The left ventricular size is normal. The resting SPECT images demonstrate a small region of reduced radiotracer uptake in the apical septal segment, otherwise normal myocardial perfusion imaging. IMPRESSION: 1. Small region of reduced perfusion in the apical septal segment on rest images. Otherwise resting myocardial perfusion imaging is normal. 2. Stress imaging was not performed due to resting junctional bradycardia on EKG. us Kiel Vasquez MD NM ORDERABLES Final Resul t INTERFACE SYSTEM Refer to clinic/hospital department * HM EJECTION FRACTION (08/19/2024 11:46 AM MOTOR VEHICLE DISPATCHER) EJECTION FRACTION N/A 50 - 65 % us Historical Provider HEALTH MAINTENANCE Final Res ult * CBC WITH DIFFERENTIAL (07/28/2024 8:44 AM MOTOR VEHICLE DISPATCHER) Only the most recent of3 resultswithin the time period is included. Blood us Nahid Hickman MD HEMATOLOGY ORDERABLES Final Res ult * TELEMETRY REPORT (07/23/2024 1:19 PM MOTOR VEHICLE DISPATCHER) us Provider Scanning ECG ORDERABLES Final Result * (ABNORMAL) HEMOGLOBIN AND HEMATOCRIT (07/22/2024 5:15 AM MOTOR VEHICLE DISPATCHER) HEMOGLOBIN 9.0(L) 11.8 - 14.8 g/dL 07/22/2024 5:31 AM MOTOR VEHICLE DISPATCHER [facility] HEMATOCRIT 27.6(L) 35.5 - 44.0 % 07/22/2024 5:31 AM MOTOR VEHICLE DISPATCHER [facility] Blood Venipuncture / Unknown 07/22/2024 5:15 AM MOTOR VEHICLE DISPATCHER 07/22/2024 5:19 AM MOTOR VEHICLE DISPATCHER us Kiel Vasquez MD HEMATOLOGY ORDERABLES Final Result Performing Organization Address City/State/[facility] Co de Phone Number [facility]# [id number] [address] [place], [place] [id number] * ECHO LIMITED WO DOPPLER (07/21/2024 3:57 PM MOTOR VEHICLE DISPATCHER) EJECTION FRACTION EF: INTERFACE SYSTEM 07/21/2024 3:27 PM MOTOR VEHICLE DISPATCHER Narrative INTERFACE SYSTEM - 07/21/2024 3:53 PM MOTOR VEHICLE DISPATCHER [address] [address] [email or web address] Transthoracic Echocardiogram Patient: Zee Martinez Study ID: ECHO LIMITED WO Gender: F : 1945 Age: 79 Race: CAU Height Study Date: 07/21/2024 Weight: Access. #: [id number] BP: *Referring Physician:* Kiel Vasquez *Ordering Physician:* Kiel Vasquez mainframe systems administrator: Nurse: STUDY CONCLUSIONS: Impressions: Limited TTE 1. There is a trivial-small pericardial effusion, no hemodynamic effect 2. Normal LV/RV size/function. Cardiac Anatomy: Transthoracic echocardiogram. 2D, complete spectral Doppler, and color Doppler. Birthdate: Patient birthdate: 1945. Age: Patient is 79year(s) old. Sex: gender: female. Study date: Study date: 07/21/2024. Study time: 03:27 PM. Prepared and Electronically Authenticated Berny Nolan [id number]:27 Procedure Note Berny Nolan MD - 07/21/[address] [address] [email or web address] Transthoracic Echocardiogram Patient: Zee Martinez Study ID: ECHO LIMITED WO Gender: F : 1945 Age: 79 Race: CAU Height Study Date: 07/21/2024 Weight: Access. #: [id number] BP: *Referring Physician:* Kiel Vasquez *Ordering Physician:* Kiel Vasquez mainframe systems administrator: Nurse: STUDY CONCLUSIONS: Impressions: Limited TTE 1. There is a trivial-small pericardial effusion, no hemodynamic effect 2. Normal LV/RV size/function. Cardiac Anatomy: Transthoracic echocardiogram. 2D, complete spectral Doppler, and color Doppler. Birthdate: Patient birthdate: 1945. Age: Patient is 79year(s) old. Sex: gender: female. Study date: Study date: 07/21/2024. Study time: 03:27 PM. Prepared and Electronically Authenticated Berny Nolan [id number] us Kiel Vasquez MD ORDERABLES Final Resul t Performing Organization Address City/State/[facility] Co de Phone Number INTERFACE SYSTEM Refer to clinic/hospital department * MD ANES INSERT CATH, ART, PERCUT, SHORTTERM (07/21/2024 12:52 PM MOTOR VEHICLE DISPATCHER) Narrative Carlos Bo AA-C - 07/21/2024 12:52 PM MOTOR VEHICLE DISPATCHER Carlos Bo AA-C 07/21/2024 12:52 PM Arterial Line Insertion Start Time: 07/21/2024 11:00 AM End Time: 07/21/2024 11:03 AM Patient location during procedure: Pre-op Staffing Performed: BILLING MANAGER/CAA Authorized by: Erickson Briceño MD Performed by: Carlos Bo AA-C Indications: multiple ABGs and hemodynamic monitoring Local Anesthetic: lidocaine 2% without epinephrine Anesthetic total: 1 mL Hand hygiene performed prior to procedure Sterile Barriers: gloves, cap, mask and sterile towels Preparation: skin prepped with 2% chlorhexidine Skin prep agent dried: skin prep agent completely dried prior to procedure Patient position: flat Location: right radial Catheter type: radial kit Catheter size: 20 G Catheter Length (in.): 1.75 [place] Identification: ultrasound guided Number of attempts: 1 Successful placement: yes Assessment: blood return through port Procedure uneventful Post-procedure: dressing applied and line secured Erickson Briceño MD PROCEDURE/MINOR SURGICAL ORDE ADALGISA Final Result * LEFT ATRIAL APPENDAGE CLOSURE PERCUTANEOUS (07/21/2024 12:26 PM MOTOR VEHICLE DISPATCHER) 07/21/2024 10:3 2 AM MOTOR VEHICLE DISPATCHER Narrative [facility] - 07/21/2024 12:47 PM MOTOR VEHICLE DISPATCHER Impression: 1. Atrial fibrillation CHADS2-VASC = 4 with appreciable risk for long-term anticoagulation secondary to severe anemia requiring PRBC 2. Successful percutaneous left atrial appendage closure with a 28mm Amulet device. Plan: #. admit to inpatient service #. routine post cath care #. supine 4hrs, then ambulate #. Aspirin and plavix for 6 months #. ANSELMO in 45 days #. endocarditis prophylaxis discussed Procedural Indications Amulet Device Implantation FINAL REPORT Taxation Consultant (s): Kiel Vasquez MD Procedures Performed 1. Transesophageal echo. 2. Fluoroscopy and transesophageal echo guided trans-septal puncture. 3. Left heart catheterization. 4. Percutaneous left atrial appendage occlusion using a 28mm mm Amulet Device 5. Ultrasound guided vascular access Brief History of Present Illness: Zee Martinez is a 79 y.o. female with a history of paroxysmal afib and severe anemia requiring PRBC who presents for left atrial appendage occlusion with an Amulet device. Procedural Details: After obtaining written informed consent, the patient was draped and prepped in the usual sterile manner. General anesthesia and intubation was performed by the anesthesia team. Transesophageal echocardiography was performed by the imaging attending. Ultrasound guidance was used to access the right common femoral vein using micropuncture technique after infiltration with 1% lidocaine for local anesthesia. Ultrasound documented patency of the common femoral artery and vein, as well as the exact location of vessel puncture. Images were stored in PACS for documentation purposes. CPT 90004 1. Access: Local anesthetic was given and access was obtained in the right femoral vein using a ultrasound guidance and micropuncture technique and an 8F sheath was placed without difficulty. The 8F sheath was removed and a Aleshia transseptal sheath was advanced over a .035 pre shaped curved wire 2. Intervention: #. IV Heparin was given to maintain an ACT of 350-400. #. Under flouroscopic and trans-esophageal guidance, a Aleshia transseptal sheath was used to gain access into the left atrium at the low-mid septal position. Left atrial pressure was then recorded. The pre shaped .035 wire was advanced into the left superior pulmonary vein. The Aleshia sheath was then removed and a 14 Sammarinese x 75 cm Amulet delivery sheath was advanced into the left atrium. #. A 6 Sammarinese pigtail catheter was advanced through the sheath into the anterior lobe of left atrial appendage. Left atrial appendage angiography was then performed. Left atrial appendage measurements were then taken by transesophageal echocardiography and fluoroscopy. #. A 28 mm Amulet device was then delivered to the left atrial appendage and unsheathed. Transesophageal echocardiography was used to take measurements of the device seated in the left atrial appendage in multiple different views. Transesophageal echocardiography and left atrial fluoroscopy confirmed appropriate position, and there was no appreciable gap. There was adequate seal with no evidence of leak by color Doppler or by contrast injection into the left atrial appendage. A tug test was then performed and repeat measurements by ANSELMO and fluoroscopy were performed, demonstrating stable position.The delivery cable was then detached, releasing the device. The sheath was then retracted to the RA and removed. 3. Hemostasis: The 14 Sammarinese venous sheath was removed and a vascade closure device/figure of 8 suture was placed to maintain patent hemostasis. [place] Findings: 1. Hemodynamics: A. Left atrial pressure 7 mmHg. 2. Maximal ostial width of GIA: 25mm Residual leak: 0 Complications: none Impression: 1. Atrial fibrillation CHADS2-VASC = 4 with appreciable risk for long-term anticoagulation secondary to severe anemia requiring PRBC 2. Successful percutaneous left atrial appendage closure with a 28mm Amulet device. Plan: #. admit to inpatient service #. routine post cath care #. supine 4hrs, then ambulate #. Aspirin and plavix for 6 months #. ANSELMO in 45 days #. endocarditis prophylaxis discussed us Kiel Vasquez MD CUP EP ORDERABLES Final Res ult Performing Organization Address City/[facility]/ZIP Co de Phone Number [facility] [id number] [address] [place] [address] * (ABNORMAL) POC ACTIVATED CLOTTING TIME (07/21/2024 12:05 PM MOTOR VEHICLE DISPATCHER) ACTIVATED CLOTTING TIME POC 297(H) 74 - 137 sec 07/21/2024 12:05 PM MOTOR VEHICLE DISPATCHER [facility] [employer] [facility] Comment:ACT testing performe d on ISTAT ACT-Kaolin cartridge. Blood 07/21/2024 12:0 5 PM MOTOR VEHICLE DISPATCHER 07/21/2024 12:09 PM MOTOR VEHICLE DISPATCHER us Kiel Vasquez MD POINT OF CARE TESTING Final Result Performing Organization Address [facility] Co de Phone Number [facility] [id number] [address] [facility] [place] [address] * MD ECHO TRANSESOPHAG R-T 2D W/PRB IMG ACQUISJ I&R (07/21/2024 11:42 AM MOTOR VEHICLE DISPATCHER) Narrative Erickson Briceño MD - 07/21/2024 11:42 AM MOTOR VEHICLE DISPATCHER Erickson Briceño MD 07/21/2024 12:41 PM Procedure Performed: ANSELMO Start Time: 07/21/2024 11:23 AM End Time: 07/21/2024 12:25 PM Probe Insertion Time:07/21/2024 11:23 AM Probe Removal Time: 07/21/2024 12:25 PM Staffing Performed: Anesthesiologist (/) Authorized by: Erickson Briceño MD Performed by: Erickson Briceño MD Hearing Aid Specialist: Kiel Vasquez MD Preanesthesia Checklist: Patient identified, IV assessed, risks and benefits discussed, monitors and equipment assessed, procedure being performed at surgeon's request and anesthesia consent obtained. General Procedure Information Physician Requesting Echo: Kiel Vasquez MD ICD Code for Medical Necessity: Amulet device placement. Location performed: dental laboratory manager Intubated Heart visualized Probe Insertion: Easy Probe Type: Multiplane Modalities: 2-D, 3-D, color flow and pulse wave Doppler Echocardiographic and Doppler Measurements Ventricles Right Ventricle: Thrombus not present. Global function normal. Left Ventricle: Thrombus not present. Global Function normal. Ejection Fraction 60%. Valves Aortic Valve: Annulus Trace AI.. Stenosis not present. Leaflets normal. Leaflet motions normal. Mitral Valve: Annulus calcified. Stenosis not present. Regurgitation +1. Leaflets normal. Leaflet motions normal. Tricuspid Valve: Stenosis not present. Regurgitation +1. Leaflets normal. Leaflet motions normal. Pulmonic Valve: Regurgitation absent. Leaflets normal. normal Aorta Ascending Aorta: Diameter 2.79 cm. Dissection not present. Plaque thickness less than 3 mm. Mobile plaque not present. Aortic Arch: Diameter 2.41 cm. Dissection not present. Plaque thickness greater than 3 mm. Mobile plaque not present. Descending Aorta: Diameter 2.67 cm. Dissection not present. Plaque thickness less than 3 mm. Mobile plaque not present. Atria Right Atrium: Size normal. Spontaneous echo contrast not present. Thrombus not present. Left Atrium: Size dilated. Spontaneous echo contrast not present. Thrombus not present. Left atrial appendage normal. Septa Atrial Septum: Intra-atrial septal morphology normal. Diastolic Function Measurements: Diastolic Dysfunction Grade= E= 70 cm/sec ms A= 26.8 cm/sec ms E/A Ratio= DT= 193 ms S/D= IVRT= E/e'= E'= A'= Other Findings Pericardium: normal Post Interventional Exam: Atraumatic probe removal with probe intact Post Interventional Exam: RWMA: LV Function: RV Function: All Findings Discussed with:Dr. Gutierrez Post-CPB Exam Performed by: patient tolerated procedure well with no complications Echocardiogram Comments: Limited exam for Amulet device placement. Amulet device placed. Placement met CLOSE criteria. Tug test negative. LAP 14. No color flow around the device at a reduced color scale at 0, 45, 90, 135 degrees. 2D, 3D images reviewed with Dr. Vasquez and the Amulet representatives. No change in pericardial space pre / post device placement. ANSELMO probe placement was easy after glidescope utilized, atraumatic. ANSELMO probe removed intact with no blood on the tip. us Erickson Briceño MD PROCEDURE/MINOR SURGICAL JAMES DIANA Edited Result - Final * EKG 12-LEAD (2024 11:49 AM MOTOR VEHICLE DISPATCHER) 2024 11:4 9 AM MOTOR VEHICLE DISPATCHER Narrative INTERFACE SYSTEM - 2024 12:41 PM MOTOR VEHICLE DISPATCHER [facility] [address] [place] [address] Test Date: 2024 Pat Name: ZEE MARTINEZ Department: 100 Room: Gender: Female Desk Pens Assembler: Bo : 1945 Requested By: KIEL Martinez Order Number: [id number] Ashley HENDERSON: Jovana Bryan Measurements Intervals Chadwick Rate: 55 P: 66 MD: 178 QRS: 37 QRSD: 90 T: -27 QT: 430 QTc: 413 Interpretive Statements SINUS BRADYCARDIA NONSPECIFIC ST & T-WAVE ABNORMALITY Electronically Signed On 2024 12:41:27 MOTOR VEHICLE DISPATCHER by Jovana Bryan Procedure Note Jovana Bryan MD - 2024 [facility] [address] [place] [address] Test Date: 2024 Pat Name: ZEE MARTINEZ Department: 100 Room: Gender: Female Desk Pens Assembler: Bo : 1945 Requested By: KIEL Martinez Order Number: [id number] Ashley HENDERSON: Jovana Bryan Measurements Intervals Chadwick Rate: 55 P: 66 MD: 178 QRS: 37 QRSD: 90 T: -27 QT: 430 QTc: 413 Interpretive Statements SINUS BRADYCARDIA NONSPECIFIC ST & T-WAVE ABNORMALITY Electronically Signed On 2024 12:41:27 MOTOR VEHICLE DISPATCHER by Jovana Bryan us Gutierrez SIMS ECG ORDERABLES Final Result INTERFACE SYSTEM Refer to clinic/hospital department * PREPARE RED BLOOD CELLS (2024 11:47 AM MOTOR VEHICLE DISPATCHER) Pathologist [facility] COMPONENT TYPE [id number] [facility] COMPONENT IDENTIFICATION [id number] [facility] UNIT ABO O [facility] RH POS [facility] CROSSMATCH Compatible [facility] COMPONENT STATUS Returned [facility] COMPONENT EXPIRATION DATE/TIME [id number] [facility] COMPONENT CODING SYSTEM 5100 [facility] VOLUME, BLOOD PRODUCT 350 [facility] 2024 11:4 7 AM MOTOR VEHICLE DISPATCHER Kiel Vasquez MD LAB TRANSFUSION ORDERABLES Edited Result - Final [facility] CLIA# [id number] [address] [place] [address] * (ABNORMAL) MANUAL DIFFERENTIAL (2024 11:47 AM MOTOR VEHICLE DISPATCHER) SEGMENTED NEUTROPHILS 39 % 2024 2:59 PM MOTOR VEHICLE DISPATCHER [facility] LYMPHOCYTES RELATIVE 25(L) 43 - 53 % 2024 2:59 PM MOTOR VEHICLE DISPATCHER [facility] ATYPICAL LYMPHOCYTES RELATIVE 4 0 - 5 % 2024 2:59 PM MOTOR VEHICLE DISPATCHER [facility] MONOCYTES RELATIVE 27 % 2024 2:59 PM MOTOR VEHICLE DISPATCHER [facility] EOSINOPHILS RELATIVE 3 % 2024 2:59 PM MOTOR VEHICLE DISPATCHER [facility] BASOPHILS RELATIVE 2 % 2024 2:59 PM MOTOR VEHICLE DISPATCHER [facility] MYELOCYTES - REL (DIFF) 1(H) <=0 % 2024 2:59 PM MOTOR VEHICLE DISPATCHER [facility] NEUTROPHILS ABSOLUTE COUNT 3.72 1.90 - 7.00 K/uL 2024 2:59 PM MOTOR VEHICLE DISPATCHER [facility] LYMPHOCYTES ABSOLUTE 2.42 0.70 - 4.50 K/uL 2024 2:59 PM MOTOR VEHICLE DISPATCHER [facility] MONOCYTES ABSOLUTE 2.59(H) 0.10 - 1.30 K/uL 2024 2:59 PM MOTOR VEHICLE DISPATCHER [employer] [facility] EOSINOPHILS ABSOLUTE 0.26 0.00 - 0.70 K/uL 2024 2:59 PM [facility] [place] BASOPHILS ABSOLUTE 0.17 0.00 - 0.20 K/uL 2024 2:59 PM [facility]ATORY SERVICES - . [place] TOTAL CELLS COUNTED IN DIFF 111 2024 2:59 PM [facility] LABORATORY SERVICES - . [facility] RBC MORPHOLOGY abnormal 2024 2:59 PM [facility] [employer] LABORATORY SERVICES - . [facility] PLATELET EST. Consistent w Count 2024 2:59 PM [facility] [employer] LABORATORY SERVICES - . [facility] ANISOCYTOSIS 1+ /hpf 2024 2:59 PM [facility] [employer] LABORATORY SERVICES - . [facility] Blood Venipuncture / Unknown 2024 11:47 AM MOTOR VEHICLE DISPATCHER 2024 1:04 PM MOTOR VEHICLE DISPATCHER Kiel Vasquez MD HEMATOLOGY ORDERABLES COM F inal Result [facility] - [facility] CLIA# [id number] [address] [place] [address] * ANTIBODY IDENTIFICATION ELUATE (2024 11:47 AM MOTOR VEHICLE DISPATCHER) ANTIBODY ID - ELUATE Panagglutinin AB 2024 10:26 PM MOTOR VEHICLE DISPATCHER [facility] -- [facility] Blood Venipuncture / Unknown 2024 11:47 AM MOTOR VEHICLE DISPATCHER 2024 12:59 PM MOTOR VEHICLE DISPATCHER Kiel Vasquez MD BLOOD BANK ORDERABLES Final Result [facility] -- [facility] CLIA# [id number] [address] [place] [address] * BLOOD BANK AB IDENT (2024 11:47 AM MOTOR VEHICLE DISPATCHER) ANTIBODY #1 Anti-Jkb 07/17/2024 1:39 AM MOTOR VEHICLE DISPATCHER [facility] ANTIBODY #2 Warm Auto Antibody 07/17/2024 1:39 AM MOTOR VEHICLE DISPATCHER [facility] Blood Venipuncture / Unknown 2024 11:47 AM MOTOR VEHICLE DISPATCHER 2024 12:59 PM MOTOR VEHICLE DISPATCHER us Kiel Vasquez MD BLOOD BANK ORDERABLES Final Result [facility] [employer] SERVICES -- [facility] CLIA# [id number] [address] [place] [address] * DIRECT ANTIGLOBULIN C3 (2024 11:47 AM MOTOR VEHICLE DISPATCHER) DIRECT ANTIGLOBULIN C3 Negative 2024 10:[address] VEHICLE [address] Blood Venipuncture / Unknown 2024 11:47 AM MOTOR VEHICLE DISPATCHER 2024 12:59 PM MOTOR VEHICLE DISPATCHER us Kiel Vasquez MD BLOOD BANK ORDERABLES Final Result Performing Organization Address City/[facility]/ZIP Co de Phone Number [employer] SERVICES -- [facility] CLIA# [id number] [address] [place] [address] * DIRECT ANTIGLOBULIN IGG (2024 11:47 AM MOTOR VEHICLE DISPATCHER) DIRECT ANTIGLOBULIN IGG Positive 2024 10:[address]LE [address] -- .[facility] Blood Venipuncture / Unknown 2024 11:47 AM MOTOR VEHICLE DISPATCHER 2024 12:59 PM MOTOR VEHICLE DISPATCHER us Kiel Vasquez MD BLOOD BANK ORDERABLES Final Result [employer] SERVICES -- [facility]# [id number] [address] [place] [address] * (ABNORMAL) PROTIME-INR (2024 11:47 AM MOTOR VEHICLE DISPATCHER) PROTIME 15.0 12.7 - 15.1 Seconds 2024 1:28 PM [facility] [employer] LAB[facility]ATORY [facility] - [facility] INR 1.2(H) 0.9 - 1.1 2024 1:28 PM [facility] [employer] [facility] Blood Venipuncture / Unknown 2024 11:47 AM MOTOR VEHICLE DISPATCHER 2024 1:04 PM MOTOR VEHICLE DISPATCHER Narrative [employer] [facility]ORY [facility] - [facility] - 2024 1:28 PM MOTOR VEHICLE DISPATCHER INR Therapeutic Range: Adult: 2.0 - 3.0 for pulmonary embolism or prophylaxis against venous thrombosis or systemic embolization. 2.0 - 3.0 for patients with tissue heart valves. 2.5 - 3.5 for patients with mechanical heart valves or post TN. Pediatric (12 years and under): 1.5 - 3.0 Although the target range in children is not well established, INR values of 1.5 - 3.0 are recommended for most patients. Higher values have been used in children with prosthetic cardiac valves and hereditary clotting disorders. (<3 days) therapeutic ranges have not been established. Kiel Vasquez MD HEMATOLOGY ORDERABLES Final Result [employer] SERVICES - [facility]# [id number] [address] [place] [address] * TYPE AND SCREEN (2024 11:47 AM MOTOR VEHICLE DISPATCHER) ABO GROUP O 2024 2:58 PM MOTOR VEHICLE DISPATCHER [employer] [facility]ATORY SERVICES -- [facility] RH (D) TYPE Positive 2024 2:58 PM MOTOR VEHICLE DISPATCHER [employer] [facility] -- [facility] ANTIBODY SCREEN Positive 2024 2:58 PM [facility] [employer] LABORATORY SERVICES -- [facility] Blood Venipuncture / Unknown 2024 11:47 AM MOTOR VEHICLE DISPATCHER 2024 12:59 PM MOTOR VEHICLE DISPATCHER Kiel Vasquez MD BLOOD BANK ORDERABLES Edite d Result - Final [facility] [place] CLIA# [id number] [address] [place] [address] * DIRECT ANTIGLOBULIN TEST W/REFLEX (2024 11:47 AM MOTOR VEHICLE DISPATCHER) DIRECT ANTIGLOBULIN POLY Positive 2024 10:24 PM MOTOR VEHICLE DISPATCHER [facility] SERVICES -- [facility] Blood Venipuncture / Unknown 2024 11:47 AM MOTOR VEHICLE DISPATCHER 2024 12:59 PM MOTOR VEHICLE DISPATCHER Kiel Vasquez MD BLOOD BANK ORDERABLES Final Result [facility] [employer] SERVICES -- CLIA# [id number] [address] [address] from Last [address] [facility] [employer] RX Member Subscriber Plan / Payer (Ef fective 2020-Present) Name:Zee Martinez Relation to Subscriber:Self Name:Zee Martinez Subscriber ID:Not on file Payer ID:Not on file Group ID:[id number] Type:RX Medicare Part D Address: [address] [employer] Medicare Part D [address] [place] [address] [employer] GOLD PLUS HMO MCR Advance Directives For more information, please contact: [phone] * Full Code (Latest Code Status on File) Date Activated Date Inactivated Comments 07/21/2024 8:36 AM 07/22/2024 12:57 PM * Full Code Date Activated Date Inactivated Comments 10/22/2023 6:00 PM 10/30/2023 7:35 PM * Full Code Date Activated Date Inactivated Comments 10/21/2023 10:22 AM 10/22/2023 6:00 PM * Full Code Date Activated Date Inactivated Comments 10/19/2023 9:53 AM 10/21/2023 10:22 AM * Full Code Date Activated Date Inactivated Comments 08/16/2021 5:48 AM 08/16/2021 7:47 PM Care Teams Brand Development Manager Relationship Specialty Start Date End Date Aliza Bain MD [address] [place] [address] PCP - General Family Practice 11/22/21
--- OUTSIDE RECORDS SUMMARY | 2024-09-29 16:06 | XMS_ITS | CONTINUITY OF CARE DOCUMENT ---
Author Name dixon metcalf Address Unknown Organization [facility] Address [address] [place] [address] [address] [place] [address] Phone [phone] Care Team Providers Care Search Advertising Strategist Name Role Phone Alva Dillard MD Unavailable RADHA DE LA CRUZ MD Unavailable RADHA DE LA CRUZ MD Unavailable [phone] INSURANCE PROVIDERS Payer name Policy type / Coverage type [place] red republic[employer] ID [facility] [employer] [id number] [place] MEDICARE Medicare [id number]
--- OUTSIDE RECORDS SUMMARY | 2024-09-29 16:06 | XMS_ITS ---
Author Organization [facility] Candi Beal Address [address] [place] [address] Care Team Providers Care Bottom Worker Name Role Phone Aliza Bain MD Primary Care Provider Active Problems Patient Care Coordination No te Formatting of this note migh t be different from the original. Kiel Vasquez MD--Emergency Medical Service Manager ([facility] @ ) Problem Noted Date Diagnosed Date Presence of Amulet left atrial appendage closure device 07/23/2024 Coronary artery disease 10/19/2023 Mixed hyperlipidemia 01/23/2023 Chronic diastolic dysfunction 12/15/2021 MGUS (monoclonal gammopathy of unknown significa nce) 03/15/2021 Benign hypertension 10/01/2020 Carotid artery disease 10/01/2020 Non-small cell cancer of right lung 08/13/2020 Atrial fibrillation Exertional shortness of breath Current Treatment and Therapy Plans No current plan information found. Past Treatment and Therapy Plans No past plan information found. Lifetime Dose Tracking * Chemical Lifetime Dose Automatic Entry Manual Entr y Effective Dose 0.9 mSv 0.9 mSv 0 mSv Total DLP 525.16 DLP 525.16 DLP 0 DLP CTDIvol Max 21.96 mGy 21.96 mGy 0 mGy Air Kerma 202.7 mGy 0 mGy 202.7 mGy Dose Area Product (DAP) 20.13 Gy-cm2 0 Gy-cm2 20.1 3 Gy-cm2
== END 2024-09-29 14:20 | disposition home or self-care (01) ==
LOC: ANHIMG 14:22
PROVIDERS: PCP Family Medicine; Visit Provider Family Medicine
DX: Z12.31 Encounter for screening mammogram for malignant neoplasm of breast (principal)
CPT/HCPCS: 77063; 77067

== ENCOUNTER 2024-12-22 08:23 | Outpatient (CLI) | payer MEDICARE, SELFPAY ==
--- OUTSIDE RECORDS SUMMARY | 2024-12-22 08:35 | XMS_ITS | Encounter Summary ---
Author Organization [facility] Address [address] [place] [address] Care Team Providers Care Change Of Address Clerk Name Role Phone Billie Blackwood MD Primary Care Provider Encounter Details Date Type Department Care Team (Late st Contact Info) Description 02/20/2024 Lab Requisition [facility] - Pathology Lab [address] [place] [address] René Chavez MD [address] [address] Monoclonal gammopathy Social History Tobacco Use Types Packs/Day Years Used Date Smoking Tobacco: Never Assessed Comments Unknown Sex and Gender Information Value Date Recorded Sex Assigned at Not on file 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 Gender Identity Not on file Sexual Orientation [...] AM CDT) Case Report Flow Cytometry Case: [id number] Authorizing Provider: René Chavez Collected: 02/20/2024 09:22 AM MD Ruben Ordering Location: [facility] - Received: 02/20/2024 02:48 PM Pathology Lab Pathologist: Cristóbal Khan MD Specimen: Bone Marrow 02/21/2024 10:02 AM [facility] PATHOLOGY LAB Final Diagnosis Bone marrow, flow cytometry: - Abnormal plasma cell population detected (1.5% of overall events) 02/21/2024 10:02 AM [facility] PATHOLOGY LAB at [address] [facility] Flow Cytometry Interpretation Viability: 88% B-cells: polytypic, kappa:lambda ratio 1:1 T-cells: not increased Blasts: not increased, ~1% of overall events Plasma cells: atypical, CD38+, CD138+, CD19 loss (aberrant), CD56+ (aberrant), however, no clear light chain restriction. Core tissue sections are pending. A bone marrow aspirate smear prepared from the flow cytometry specimen has been reviewed for quality control inspector heading purposes. 02/21/2024 10:02 AM [facility] PATHOLOGY LAB Flow Cytometry Results Differential Result Comment Flow Cell Count /uL 135,100 Total Viability % 88.0 Lymphocytes % 5 Dim CD45 Region % 6 Monocytes % 13 Granulocytes % 76 02/21/2024 10:02 AM [facility] PATH[facility] Reason for test Monoclonal gammopathy 273.1 02/21/2024 10:02 AM [facility] Client Specimen ID # [id number] 02/21/2024 10:02 AM [facility] Number of markers 14 were performed. A-2 Flow CD10 A-3 Flow CD13 A-5 Flow CD20 A-13 Flow CD117 A-14 FLOW CD138 A-1 Flow CD5 A-4 Flow CD19 A-6 Flow CD33 A-7 Flow CD34 A-8 Flow CD45 A-11 Flow CD38 A-12 Flow CD56 A-9 Owings+CD19+ A-10 Lambda+CD19+ 02/21/2024 10:02 AM [facility] PATH[facility] LAB Pathologist Location at [facility] 02/21/2024 10:02 AM [facility] PATHOLOGY LAB Disclaimer Test performed at [facility], [address] [place] [address], [id number]. *The established laboratory minimum viability is 70%. [...] complexity clinical testing. 02/21/2024 10:[address] [facility] Embedded Images 10:[address] [facility] Pathology/Cytolo gy BONE MARROW SPECIMEN / Unknown 02/20/2024 9:22 AM CDT 02/20/2024 2:48 PM CDT René Chavez MD LAB - PATHOLOGY/CYT OLOGY ORDERABLES Final Result Performing Organization Address City/State/[facility] de Phone Number [facility] [address] [phone] documented in this encounter Visit Diagnoses Diagnosis Monoclonal gammopathy Monoclonal paraproteinemia documented in this encounter Care Teams Change Of Address Clerk Relationship Specialty Start Date End Date Billie Blackwood MD [address] [place] [phone] PCP - General 07/20/20 documented as of this encounter
--- OUTSIDE RECORDS SUMMARY | 2024-12-22 08:35 | XMS_ITS | Clinical Summary ---
Author Organization [facility] Address [address] [place] [address] Care Team Providers Care Looping Machine Operator Name Role Phone Billie Blackwood MD Primary Care Provider Source Comments [facility] sougou,non-owned Affiliates and Associated Physician Practices is amultiple site organization consisting of ambulatory clinics and hospital sitesin [place], [place], [place] and [place]. This disclosure is being madepursuant to the Care Everywhere program and may not contain all information available regarding this patient. 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
--- OUTSIDE RECORDS SUMMARY | 2024-12-22 08:35 | XMS_ITS ---
Author Organization [facility] Candi Beal Address [address] [facility] [place] [address] Care Team Providers Care Twister In Name Role Phone Aliza Bain MD Primary Care Provider Active Problems Patient Care Coordination No te Formatting of this note migh t be different from the original. Kiel Vasquez MD--Label Designer ([facility] [place] [facility] Heart [facility] Vascular @ ) Problem Noted [...]
--- OUTSIDE RECORDS SUMMARY | 2024-12-22 08:35 | XMS_ITS | Encounter Summary ---
Author Organization [facility] [employer] [facility] Address [address] [place] [address] Care Team Providers Care Fountain Helper Name Role Phone Aliza Bain MD Primary Care Provider Encounter Details Date Type Department Care Team (Late st Contact Info) Description 12/22/2024 Orders Only [facility] Oncology and Hematology - [place] [address] [facility] [address] [place] [address] Nahid Hickman MD [address] [place] [address] Chronic anemia Social History Tobacco [...] answer 10/19/2023 Food Insecurity Answer Date Recorded Patient needs follow up regardin 10/11/2024 Transportation Needs Answer Date Record ed Patient needs follow up regardin 10/11/2024 Housing Stability Answer Date Recorded Social/Environmental Concerns No concerns Utility Needs Answer Date Recorded Patient needs follow up regardin 10/11/2024 Comments No Sex and Gender Information Value Date Recorded Sex Assigned at Not on file 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 Female 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 Gender Identity Not on file Sexual Orientation Not on file documented as of this encounter Plan of Treatment Upcoming Encounters Date Type Department Care Team (Late st Contact Info) Description 12/23/2024 8:30 AM CDT Office Visit [facility] Oncology and Hematology - [place] [address] [facility] [facility] [address] [place] [address] Nahid Hickman MD [address] [facility] [address] [place] [address] 12/30/2024 2:00 PM CDT Office Visit [facility] HEART AND VASCULAR EP AT [address] [place] [address] Brittny Mar PA-C [facility] [address] [facility] [address] [place] [address] 02/05/2025 10:45 AM CDT Telephone Check Up [facility] Heart and Vascular At [address] [place] [address] Makenzie Coe FNP [facility] [place] [address] 02/12/2025 10:00 AM CDT Office Visit [facility] Heart and Vascular At [address] [place] [address] Kiel Vasquez MD [facility] [address] [facility] [address] [place] [address] documented as of this encounter Visit Diagnoses Diagnosis Chronic anemia Anemia, unspecified documented in this encounter Care Teams Fountain Helper Relationship Specialty Start Date End Date Aliza Bain MD [address] [place] [phone] PCP - General Family Practice 11/22/21 documented as of this encounter
--- OUTSIDE RECORDS SUMMARY | 2024-12-22 08:35 | XMS_ITS | Encounter Summary ---
Author Organization [facility] Address 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 [address] [facility] [address] [place] [phone] Brittny Mar PA-C [address] [facility] [address] [place] [address] 02/05/2025 10:45 AM CDT Telephone Check Up [facility] Heart and Vascular At [place] [address] [address] [facility] [address] [place] [address] Makenzie Coe FNP [address] [place] [address] 02/12/2025 10:00 AM CDT Office Visit [facility] Heart and Vascular At [address] [place] [address] Kiel Vasquez MD [facility] [address] [facility] [address] [place] [address] documented as of this encounter Visit Diagnoses Not on filedocumented in this encounter Care Teams Physician Practice Consultant Relationship Specialty Start Date End Date lAiza Bain MD [address] [place] [phone] PCP - General Family Practice 11/22/21 documented as of this encounter
--- OUTSIDE RECORDS SUMMARY | 2024-12-22 08:35 | XMS_ITS | Clinical Summary ---
Author Organization [facility] Address [address] [place] [address] Care Team Providers Care Mini Baccarat Dealer Name Role Phone Aliza Bain MD Primary Care Provider Nahid Hickman MD Unavailable [phone] Kiel Vasquez MD Unavailable [phone] Allergies Active Allergy Reactions Criticality Noted Date [...] 60 MG tabletIndicatio ns:Myasthenia gravis ([facility] HHS/HCC) Take 1 tablet (60 mg total) [...] 60 MG tabletIndicatio ns:Myasthenia gravis ([facility] HHS/HCC) Take 1 tablet (60 mg total) by mouth 3 (three) times daily. 180 tablet 9 09/01/2024 Active Active Problems Problem Noted Date Diagnosed Date Bilateral carotid artery stenosis 11/12/2022 Exertional shortness of breath 11/09/2022 Chronic diastolic congestive heart failure ([facility] HHS/HCC) 12/15/2021 Spontaneous rupture of spleen 10/03/2021 New onset atrial fibrillation ([facility]/HCC) 05/09/2021 MGUS (monoclonal gammopathy of unknown significa nce) 03/15/2021 Carotid artery disease 10/01/2020 Benign hypertension 10/01/2020 Non-small cell cancer of right lung ([facility] HHS /HCC) 08/13/2020 Normocytic normochromic anemia 04/18/2016 Lumbago 12/05/2012 Pain in extremity 12/05/2012 Myasthenia gravis ([facility] HHS/HCC) Paroxysmal atrial fibrillation ([facility]/HCC) HTN (hypertension) Encounters Date Type Department Care Team Description 10/28/2024 Telephone [facility], [address] [address] Jimmy Morris MD Results (CAROTID DUPLEX STUDY) 10/28/2024 Orders Only [facility], [address] [address] Jimmy Morris MD 10/16/2024 11:00 AM CDT - 10/16/2024 11:59 PM CDT Hospital Encounter [facility] [place] [address] Jimmy Morris MD Discharge Disposition: Home or Self Care (Routine Discharge) 10/16/2024 Travel from Last 3 Months Immunizations Immunization Administration Dates Next Due Fluzone High Dose - >Age 65 (Prefilled Syringe) 04/07/2021,04/26/2017 Hib (Acthib) 4 Dose 10/04/2021 Influenza Adult (Generic) 03/17/2018 MENINGOCOCCAL A C Y&W-135 oligosaccharide (MENVE O) 10/04/2021 Meningcoccal Group B (Bexsero)(aka Meningitis) 0 10/04/2021 Pneumococcal (Pneumovax 23) 04/07/2021 Pneumococcal (Prevnar 13) 10/04/2021 Zoster (Zostavax) [address] Unt/0.65Ml 05/26/2016 Family History Medical History Relation [...] 7:38 AM CDT Height 160 cm (5' 3) 09/01/2024 7:38 AM CDT Body Mass Index 21.79 09/01/2024 7:38 AM CDT Plan of Treatment Upcoming Encounters Date Type Department Care Team (Late st Contact Info) Description 01/20/2025 10:20 AM CDT Office Visit [facility] Multispecialty Care - [facility] [address] [facility], [address] [place] [address] Kris Amado MD [address] [place] [address] 10/19/2025 11:00 AM CDT Appointment [facility] [place] [address] Jimmy Morris MD [address] [facility]. [address] [place] [address] Health Maintenance Due Date Last Done Comments DTaP, Tdap and Td Vaccines ( 1 - Tdap) 1964 Annual Medicare Wellness Visit 2009 Dexa Scan (General) 2009 Zoster Vaccines (2 of 3) 07/21/2016 05/26/2016 RSV Immunization or 60+ Years (1 - 1-dose 75+ series) 2019 COVID-19 Vaccine (2023-2 5 season) 2024 Meningococcal B Vaccine Aged Out 10/04/2021 No l onger eligible based on patient's age to complete this topic Meningococcal Vaccine Aged Out 10/04/2021 No marianela antonia eligible based on patient's age to complete this topic Pneumococcal Vaccine: 50+ Years Completed 10/04/2021, 04/07/2021 PHQ-2 (Physician [place]) Completed 09/01/2024 RSV Immunizations Under 20 Months Aged Out No longer eligible b ased on patient's age to complete this topic Goals Goal Patient Goal Type Associated Problems Recent Progress Patient-Stated? Author Safety Patient/family will have appropriate support at home upon discharge General No Zoila Gan, practicing dermatologist Procedure Name Priority Date/Time Associated Diagnosis Comments USV CAROTID DUPLEX JEFF Routine 10/16/2024 11:50 AM CDT Carotid stenosis, bilateral from Last 3 Months Results * USV CAROTID DUPLEX JEFF (10/16/2024 11:50 AM CDT) Anatomical Region Laterality Modality Neck Vascular Ultraso und 10/16/2024 11:3 1 AM CDT Narrative 10/16/2024 11:11 PM CDT CAROTID ARTERY DUPLEX IMAGING VASCULAR LAB Pat.Name: ZEE MARTINEZ Pat.ID: [id number] St.Date: 10/16/2024 Refer.MD: Aliza Bain Exam Time: 11:31:00 AM Study Type:MELLISSA VS Duplex Carotid BI Age: 1 1945,79Y Sex: F Sonogrphr: Monroe Matute RVT Pat. Stat.:Outpatient History / Clinical:known carotid disease Procedures: Malave scale, Color Doppler imaging, Doppler Spectral Analysis Race: W ++++++++++++++++++++++++++++++++++++ SUMMARY: ++++++++++++++++++++++++++++++++++++ St E's Carotid Criteria 50-69% = PSV 180-230 and/or Ratio 2.0 - 4.0 >70% = PSV >230 and Ratio >4.0 or EDV >100 Stent Criteria >80% = PSV >340 and Ratio >4.0 The right subclavian artery is not assessed. The left subclavian artery is not assessed. Right side: The right bifurcation-internal carotid artery has heterogeneous plaque. Internal carotid maximum velocity is 143 cm/s, with a ratio of 1.45 . The common carotid artery has heterogeneous plaque present. The external carotid artery has heterogeneous plaque proximally. Vertebral artery flow is antegrade. No defined ulceration noted. Left side: The left bifurcation-internal carotid artery has heterogeneous plaque. Internal carotid maximum velocity is 147 cm/s , with a ratio of 1.79 . The common carotid artery has heterogeneous plaque present. The external carotid artery has heterogeneous plaque proximally. Vertebral artery flow is antegrade. No defined ulceration noted. CONCLUSION: Less than 50% stenosis in the bilateral internal carotid arteries. Antegrade flow in the bilateral vertebral arteries. ++++++++++++++++++++++++++++++++++++ MEASUREMENTS: ++++++++++++++++++++++++++++++++++++ DOPPLER Right Prox CCA Prox CCA PSV 156 cm/s Right Dist CCA Dist CCA PSV 98.8 cm/s Right Prox ICA Prox ICA PSV 143 cm/s Prox ICA EDV 28.2 cm/s Right Mid ICA Mid ICA PSV 113 cm/s Mid ICA EDV 25.9 cm/s Right Dist ICA Dist ICA PSV 119 cm/s Dist ICA EDV 21.2 cm/s Right Prox ECA Prox ECA PSV 178 cm/s Right Vertebral Vertebral PSV 92.9 cm/s Right ICA/CCA RATIO ICA/CCA RATIO P 1.45 Left Prox CCA Prox CCA PSV 98 cm/s Left Dist CCA Dist CCA PSV 82.3 cm/s Left Prox ICA Prox ICA PSV 147 cm/s Prox ICA EDV 31.5 cm/s Left Mid ICA Mid ICA PSV 109 cm/s Mid ICA EDV 21.2 cm/s Left Dist ICA Dist ICA PSV 100 cm/s Dist ICA EDV 20.5 cm/s Left Prox ECA Prox ECA PSV 260 cm/s Left ICA/CCA RATIO ICA/CCA RATIO P 1.79 Internal Carotid Artery Left Internal C 0 <Electronic Signature> 10/16/2024 11:11 PM Britney Cunningham M.D. Procedure Note Britney Cunningham MD - 10/16/2024 CAROTID ARTERY DUPLEX IMAGING VASCULAR LAB Pat.Name: ZEE MARTINEZ Pat.ID: [id number] .Date: 10/16/2024 Refer.MD: Aliza Bain Exam Time: 11:31:00 AM Study Type:MELLISSA VS Duplex Carotid BI Age: 1 1945,79Y Sex: F Sonogrphr: Monroe Matute RVT Pat. Stat.:Outpatient History / Clinical:known carotid disease Procedures: Malave scale, Color Doppler imaging, Doppler Spectral Analysis Race: W ++++++++++++++++++++++++++++++++++++ SUMMARY: ++++++++++++++++++++++++++++++++++++ St E's Carotid Criteria 50-69% = PSV 180-230 and/or Ratio 2.0 - 4.0 >70% = PSV >230 and Ratio >4.0 or EDV >100 Stent Criteria >80% = PSV >340 and Ratio >4.0 The right subclavian artery is not assessed. The left subclavian artery is not assessed. Right side: The right bifurcation-internal carotid artery has heterogeneous plaque. Internal carotid maximum velocity is 143 cm/s, with a ratio of 1.45 . The common carotid artery has heterogeneous plaque present. The external carotid artery has heterogeneous plaque proximally. Vertebral artery flow is antegrade. No defined ulceration noted. Left side: The left bifurcation-internal carotid artery has heterogeneous plaque. Internal carotid maximum velocity is 147 cm/s , with a ratio of 1.79 . The common carotid artery has heterogeneous plaque present. The external carotid artery has heterogeneous plaque proximally. Vertebral artery flow is antegrade. No defined ulceration noted. CONCLUSION: Less than 50% stenosis in the bilateral internal carotid arteries. Antegrade flow in the bilateral vertebral arteries. ++++++++++++++++++++++++++++++++++++ MEASUREMENTS: ++++++++++++++++++++++++++++++++++++ DOPPLER Right Prox CCA Prox CCA PSV 156 cm/s Right Dist CCA Dist CCA PSV 98.8 cm/s Right Prox ICA Prox ICA PSV 143 cm/s Prox ICA EDV 28.2 cm/s Right Mid ICA Mid ICA PSV 113 cm/s Mid ICA EDV 25.9 cm/s Right Dist ICA Dist ICA PSV 119 cm/s Dist ICA EDV 21.2 cm/s Right Prox ECA Prox ECA PSV 178 cm/s Right Vertebral Vertebral PSV 92.9 cm/s Right ICA/CCA RATIO ICA/CCA RATIO P 1.45 Left Prox CCA Prox CCA PSV 98 cm/s Left Dist CCA Dist CCA PSV 82.3 cm/s Left Prox ICA Prox ICA PSV 147 cm/s Prox ICA EDV 31.5 cm/s Left Mid ICA Mid ICA PSV 109 cm/s Mid ICA EDV 21.2 cm/s Left Dist ICA Dist ICA PSV 100 cm/s Dist ICA EDV 20.5 cm/s Left Prox ECA Prox ECA PSV 260 cm/s Left ICA/CCA RATIO ICA/CCA RATIO P 1.79 Internal Carotid Artery Left Internal C 0 <Electronic Signature> 10/16/2024 11:11 PM Britney Cunningham M.D. Jimmy Morris MD VASC Final Result from Last [address]NE [address] Advance Directives * Full Code (Latest Code Status on File) Date Activated Date Inactivated Comments 10/03/2021 9:15 AM 10/10/2021 1:30 PM * Full Code Date Activated Date Inactivated Comments 10/03/2021 4:15 AM 10/03/2021 9:15 AM Care Teams Mini Baccarat Dealer Relationship Specialty Start Date End Date Aliza Bain MD [address] [place] [address] PCP - General FAMILY PRACTICE 05/09/21 [place] [address] [place] [phone] PCP - ONCOLOGY HEMATOLOGY/ONCOLOGY 10/03/21 Kiel Vasquez MD [address] [facility] [address] [place] [address] Consulting Physician CARDIOLOGY 10/03/21
--- OUTSIDE RECORDS SUMMARY | 2024-12-22 08:35 | XMS_ITS | Clinical Summary ---
Author Organization [facility] Candi Beal Address [address] [place] [address] Care Team Providers Care Grain Broker Name Role Phone Aliza Bain MD Primary Care Provider Allergies Active Allergy Reactions Criticality Noted Date Comments Penicillins Hives High 07/29/2020 Tolerates Ancef Medications olmesartan (BENICAR) 40 mg tablet Take 40 mg by mouth daily. Medication bottle is Olmesartan Medoxomil 40 MG tab1 tab by mouth daily Active cyanocobalamin (VITAMIN B-12) 100 mcg tablet Take 100 mcg by mouth daily. Active calcium-choleca lciferol (OS-SUSAN 500+D) 500 mg(1,250mg) -200 unit tablet Take 1 Tablet by mouth daily. Active magnesium oxide 250 mg magnesium Tablet Take by mouth. Activ e aspirin (ECOTRIN EC) 81 mg Tablet, Delayed Release (E.C.) Take 81 mg by mouth daily. Active cholecalciferol , vitamin D3, (VITAMIN D3 ORAL) Take by mouth. Activ e pantoprazole (PROTONIX) 20 mg Tablet, Delayed Release (E.C.) Take 20 mg by mouth 2 times daily. NEEDED Active acetaminophen-c odeine (TYLENOL #3) 300-30 mg tablet Take 1 Tablet by mouth every 6 hours as needed. STOPPED Active pyRIDostigmine (MESTINON) 60 mg tablet Take 60 mg by mouth daily. 1/2 TABLET IN THE AM AND 1/2 TAB IN THE PM Active metoprolol tartrate (LOPRESSOR) 25 mg tablet Take 1 Tablet (25 mg) by mouth 2 times daily. 180 Tablet 3 4 Active Additional Information Patient taking differently: 50 mgOral TWO TIMES DAILY, Reported on 07/21/2024 ferrous sulfate 325 mg (65 mg iron) tablet Take 1 Tablet by mouth 2 times daily. 4 Active fluticasone propionate (FLONASE) 50 mcg/spray [place], Suspension nasal inhaler Administer 2 Sprays in each nostril daily. Active atorvastatin (LIPITOR) 40 mg tablet Take 1 Tablet (40 mg) by mouth daily at bedtime. 90 Tablet 3 4 Active ondansetron (ZOFRAN ODT) 8 mg Tablet, Rapid Dissolve Dissolve 1 tablet on top of tongue then swallow with saliva every 8 hours as needed for nausea or vomiting 30 Tablet 1 4 Active MULTIVITAMIN ORAL Take by mouth. Activ e B.animalis,bifi d,infantis,long (PROBIOTIC 4X ORAL) Take by mouth. Activ e clopidogreL (PLAVIX) 75 mg Tablet Starting 07/23: Take 1 Tablet (75 mg) by mouth daily. 90 Tablet 1 07/22/2024 10:52 AM COPING MACHINE OPERATOR 5 Active amLODIPine (NORVASC) 5 mg tablet Take 1 Tablet (5 mg) by mouth daily. 90 Tablet 3 5 Active doxycycline hyclate (VIBRAMYCIN) 100 mg tablet Take 1 capsule 1 hour prior to dental visit. 1 Tablet 5 Active Active Problems Patient Care Coordination No te Formatting of this note migh t be different from the original. Kiel Vasquez MD--Medical Information Officer ([facility] @ ) Problem Noted [...] Encounters Date Type Department Care Team Description 12/22/2024 Orders Only [facility] Oncology and Hematology - [place] [address] [place] [address] Nahid Hickman MD Chronic anemia 12/08/2024 Orders Only [facility] Oncology and Hematology - [place] [address] [place] [address] Nahid Hickman MD Chronic anemia 11/24/2024 Orders Only [facility] Oncology and Hematology - [place] [address] [place] [address] Nahid Hickman MD Chronic anemia 11/17/2024 9:00 AM CDT Office Visit [facility] Oncology and Hematology - [place] [address] [place] [address] Nahid Hickman MD Chronic anemia (Primary Dx) 11/17/2024 Orders Only [facility] Oncology and Hematology - [place] [address] [place] [address] Nahid Hickman MD 11/10/2024 Orders Only [facility] Oncology and Hematology - [place] [address] [place] [address] Nahid Hickman MD Chronic anemia 11/05/2024 External Device Data STL ABSTRACTION Provider, Abstract 11/04/2024 External Device Data STL ABSTRACTION Provider, Abstract 10/27/2024 Orders Only [facility] Oncology and Hematology - [place] [address] [place] [address] Nahid Hickman MD Chronic anemia 10/24/2024 Orders Only [facility] Oncology and Hematology - [place] [address] [place] [address] Nahid Hickman MD 10/20/2024 11:45 AM CDT Office Visit [facility] Oncology and Hematology - [place] [address] [place] [address] Nahid Hickman MD Chronic anemia (Primary Dx) 10/13/2024 Orders Only [facility] Oncology and Hematology - [place] [address] [place] [address] Nahid Hickman MD Chronic anemia 09/30/2024 External Device Data STL ABSTRACTION Provider, Abstract 09/29/2024 Orders Only [facility] Oncology and Hematology - [place] [address] [place] [address] Nahid Hickman MD Chronic anemia 09/22/2024 8:30 AM CDT Office Visit [facility] Oncology and Hematology - [place] [address] [place] [address] Nahid Hickman MD Chronic anemia (Primary Dx) from Last 3 Months Immunizations Immunization Administration [...] on file Legal Sex Female 3:32 PM COPING MACHINE OPERATOR Gender Identity Not on file Sexual Orientation Not on file Last Filed Vital Signs Vital Sign Reading Time Taken Comments Blood Pressure 158/72 11/17/2024 8:25 AM CDT Pulse 50 11/17/2024 8:22 AM CDT Temperature 36 C (96.8 F) 11/17/2024 8:22 AM CDT Respiratory Rate 15 11/17/2024 8:22 AM CDT Oxygen Saturation 95% 11/17/2024 8:22 AM CDT Inhaled Oxygen Concentration - - Weight 56.6 kg (124 lb 12.8 oz) 11/17/2024 8:22 AM CDT Height 160 cm (5' 3) 07/21/2024 8:46 AM COPING MACHINE OPERATOR Body Mass Index 22.11 07/21/2024 8:46 AM COPING MACHINE OPERATOR Plan of Treatment Upcoming Encounters Date Type Department Care Team (Late st Contact Info) Description 12/23/2024 8:30 AM CDT Office Visit [facility] Oncology and Hematology - [place] [address] [facility] [address] [place] [address] Nahid Hickman MD [address] [facility] [address] [place] [address] 12/30/2024 2:00 PM CDT Office Visit [facility] EP AT [address] [place] [address] Brittny Mar PA-C [address] [place] [address] [address] [place] [address] 02/05/2025 10:45 AM CDT Telephone Check Up [facility] Heart [facility] Vascular At [address] [place] [address] Makenzie Coe FNP [address] [place] [address] 02/12/2025 10:00 AM CDT Office Visit [facility] Heart and Vascular At [address] [place] [address] Kiel Vasquez MD [address] [place] [address] [address] [place] [address] Health Maintenance Due Date Last Done Comments DTAP/TDAP/TD VACCINES (1 - Tdap) 1963 OSTEOPOROSIS SCREENING 2009 ZOSTER VACCINE (2 of 3) 07/21/2016 05/26/2016 RSV VACCINE (60+ or ) (1 - 1-dose 75+ series) 2019 INFLUENZA VACCINE (#1) 2025 , 03/17/2018, 04/26/2017 PNEUMOCOCCAL VACCINE 50+ YEARS Completed 10/04/2021 , 04/07/2021 Medical Devices Implanted Type Area Component Engineer Device Identifier Shelf Expiration Date Model / Serial / Lot Occluder Amplatzer 28mm Lt Atrial Chantell Cv Amulet 0-Gyh2-798-0 28 - [id number] Implanted:Qt y: 1 on 07/21/2024 by Kiel Vasquez MD at [facility] Cardiovascular Device N/A: Heart RANDOLPH- VASC DEVICE [id number] 12/15/2028 9-ACP2-0 / / [id number] Clip Ligating Horizon Med Ti 281442 - Csc - [id number] Implanted:Qt y: 2 on 08/31/2020 by Edinson Ferrell MD at [facility] Clip Right: Chest TELEFLEX- WECK CLOSURE SYS 01/11/2025 [id number] / / [id number] Clip Ligating Horizon Lg Ti 396225 - Csc - [id number] Implanted:Qt y: 1 on 08/31/2020 by Edinson Ferrell MD at [facility] Clip Right: Chest TELEFLEX- WECK CLOSURE SYS 12/14/2024 [id number] / / [id number] Farm Operations Technical Director Clip Surgiclip Iii Ti Anthony Sm 9in 289125 - [id number] Implanted:Qt y: 1 on 10/22/2023 by Edinson Ferrell MD at [facility] Clip N/A: Chest [employer] - COVIDIEN [id number] 03/17/2028 [id number] / / [id number] Farm Operations Technical Director Clip Surgiclip Iii Ti Anthony Sm 9in 162518 - [id number] Implanted:Qt y: 1 on 10/22/2023 by Edinson Ferrell MD at [facility] Clip N/A: Chest [employer] - COVIDIEN [id number] 04/17/2028 904435 / / [id number] Clip Ligating Horizon Med Ti 514773 - Csc - [id number] Implanted:Qt y: 2 on 10/22/2023 by Edinson Ferrell MD at [facility] Clip N/A: Chest TELEFLEX- WECK CLOSURE SYS [id number] 05/28/2028 017777 / / [id number] Clip Ligating Horizon Sm Ti 211682 - Csc - [id number] Implanted:Qt y: 1 on 10/22/2023 by Edinson Ferrell MD at [facility] Clip N/A: Chest TELE[employer]LEX INC 04/16/2028 [id number] / / [id number] Farm Operations Technical Director Clip Surgiclip Iii Ti Anthony Sm 9in 154091 - [id number] Implanted:Qt y: 1 on 10/22/2023 by Edinson Ferrell MD at [facility] Clip Left: Leg [employer] - COVIDIEN [id number] 04/17/2028 312143 / / [id number] Farm Operations Technical Director Clip Surgiclip Iii Ti Anthony Sm 9in 000521 - [id number] Implanted:Qt y: 1 on 10/22/2023 by Edinson Ferrell MD at [facility] Clip N/A: Chest [employer] - COVIDIEN [id number] 03/17/2028 536783 / / [id number] Farm Operations Technical Director Clip Surgiclip Ii Anthony 9.75in 722938 - [id number] Implanted:Qt y: 1 on 10/22/2023 by Edinson Ferrell MD at [facility] Clip N/A: Chest [employer] - COVIDIEN [id number] 03/17/2028 741820 / / [id number] Dev Vns Vasc Clsr Vascade Mvp St [id number]-[id number] - [id number] Implanted:Qt y: 1 on 07/21/2024 by Kiel Vasquez MD at [facility] Closure Device Right: Groin [employer] [id number] 03/28/2026 [id number] -10U / / [id number] Marker Anastomark Cabg Slcn Fm-Pm-1 - [id number] Implanted:Qt y: 2 on 10/22/2023 by Edinson Ferrell MD at [facility] Other N/A: Heart [employer] FM-PM-1 / / Screws Right Ankle Suture Tape Umbilical 30in U11t - Old - [id number] Implanted:Qt y: 1 on 08/31/2020 by Edinson Ferrell MD at [facility] Right: Lung [employer] 10/15/2024 W48V-CTV / / [id number] Description:Small piece of u mbilical tape used to reinforce staple line between upper and lower fissure. charged in supply list Explanted Type Area Component Engineer Device Identifier Shelf Expiration Date Model / Serial / Lot Hemostatic Surgicel 4x8in 1952 - [id number] Explanted:Qty : 1 on 08/31/2020 by Edinson Ferrell MD at [facility] Hemostatic Right: Lung [employer] [id number] 07/18/20241951 / / [id number] Description:One-third left i n chest, the rest removed by surgeon Procedures Procedure Name Priority Date/Time Associated Diagnosis Comments COMPREHENSIVE METABOLIC PANEL Routine 11/17/2024 2:32 PM CDT BASIC METABOLIC PANEL Routine 11/17/2024 2:17 PM CDT CBC WITH DIFFERENTIAL Routine 11/17/2024 2:15 PM CDT BASIC METABOLIC PANEL Routine 10/20/2024 4:13 PM CDT COMPREHENSIVE METABOLIC PANEL Routine 10/20/2024 3:06 PM CDT from Last 3 Months Results * COMPREHENSIVE METABOLIC PANEL (11/17/2024 2:32 PM CDT) Only the most recent of2 resultswithin the time period is included. Blood us Nahid Hickman MD CHEMISTRY ORDERABLES Final Resu lt * BASIC METABOLIC PANEL (11/17/2024 2:17 PM CDT) Only the most recent of2 resultswithin the time period is included. Blood us Nahid Hickman MD CHEMISTRY ORDERABLES Final Resu lt * CBC WITH DIFFERENTIAL (11/17/2024 2:15 PM CDT) Blood Nahid Hickman MD HEMATOLOGY ORDERABLES Final Res ult from Last 3 Months Insurance Pulse 8 O MCR RX [employer] RX Member Subscriber Plan / Payer (Ef fective 2020-Present) Name:Cassandra Martinez Relation to Subscriber:Self Name:Cassandra Martinez Subscriber ID:Not on file Payer ID:Not on file Group ID:[id number] Type:RX Medicare Part D Address: [address] [place] [employer] Commercial RX [place] Medicare Part D [employer] [place] [facility] [place] Advance Directives For more information, please contact: [phone] * Full Code (Latest Code Status on [...] 5:48 AM 08/16/2021 7:47 PM Care Teams Grain Broker Relationship Specialty Start Date End Date Aliza Bain MD [address] [place] [address] PCP - General Family Practice 11/22/21
--- OUTSIDE RECORDS SUMMARY | 2024-12-22 08:35 | XMS_ITS | Continuity of Care Document ---
Author Organization [facility] Address [address] [place] [address] [address] [place] [address] Phone Care Team Providers Care Fisher Trot Line Name Role Phone Sorin Arteaga Unavailable Unavailable Procedures Procedure Date Eye Exam, New Patient Refraction Advance Directives Directive Yes / No Effective Date File Name No Information Encounters Encounter Description Practice Location Reason(s) For Visit Diagnoses Date Provider Providers Copied on Encounter [facility], [address] [place] [address] [address], [place], [place], [id number], [place] tel:[phone] [facility] No Information [address] [place], [place] [address] [place] [address], [place], [address], [place]. tel:[phone] Referring Provider: Alex Chavez [facility] [address], [place], [place], [facility]. tel:[phone] Family History Family Member Type Diagnosis Age At Onset No Information Payers Payer name Insurance type Covered republican ID Authoriza tialton(s) [place] Out Of State [id number] Social History Type Description Quantity Date Captured [...]
--- OUTSIDE RECORDS SUMMARY | 2024-12-22 08:35 | XMS_ITS | Encounter Summary ---
Author Organization [facility] Address [address] [place] [address] Care Team Providers Care Mattress And Boxsprings Supervisor Name Role Phone Billie Blackwood MD Primary Care Provider Encounter Details Date Type Department Care Team (Late st Contact Info) Description 02/21/2024 Lab Requisition [facility] - Pathology Lab [address] [place] [address] René Chavez MD [address] [address] Illness, unspecified Social History Tobacco Use Types Packs/Day Years Used Date Smoking Tobacco: Never Assessed Comments Unknown Sex and Gender Information Value Date Recorded Sex Assigned at Not on file Legal Sex Female 4:45 PM 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 Gender Identity Not on file Sexual Orientation [...] Report Bone Marrow Patholog y Report Case: [id number] Authorizing Provider: René Chavez Collected: 02/20/2024 09:22 AM MD Ruben Ordering Location: [facility] - Received: 02/21/2024 12:46 PM Pathology Lab Pathologist: Cristóbal Khan MD Specimens: A) - Bone Marrow Clot B) - Bone Marrow Core 02/22/2024 10:52 AM [facility] Final Diagnosis Bone marrow, aspirate, clot section, and core biopsy: - Hypercellular marrow with erythroid hyperplasia and myeloid and megakaryocytic atypia, as well as mild involvement by a plasma cell neoplasm (~7% of marrow cellularity). - See description. Peripheral blood smear: - Absolute monocytosis and normocytic anemia. - See description. 02/22/2024 10:52 AM [facility] at 1052 CDT AP Comment In addition to the low-level involvement [...] normal numbers of megakaryocytes. 02/22/2024 10:52 AM [facility] Peripheral Smear Description RBC: normocytic anemia. WBC: increased in number with mature absolute monocytosis, dysgranulopoiesis. Platelets: normal in number. 02/22/2024 10:52 AM [facility] Bone Marrow Aspirate Differential [...] stain): no ring sideroblasts. 02/22/2024 10:52 AM [facility] Bone Marrow Core Biopsy [...] similar to core biopsy. 02/22/2024 10:52 AM [facility] Flow Cytometry Summary Bone marrow, flow cytometry ([id number]): - Abnormal plasma cell population detected (1.5% of overall events) 02/22/2024 10:52 AM [facility] Clinical History MGUS. 02/22/2024 10:52 AM [facility] Materials Received Received are 19 slide and 3 blocks(s) labeled [id number] along with a copy of the outside pathology report. [place] [address] . All original materials are returned to the referring institution, along with a copy of our final report. 02/22/2024 10:52 AM [facility] Pathologist Location at [facility] 02/22/2024 10:52 AM [facility] Disclaimer The performance characteristics of all immunohistochemical and indirect immunofluorescence stains (if any) cited in this report were determined by the Histopathology Laboratory of [facility]. Some of these tests were developed by [...] the attending (teaching) pathologist. 02/22/2024 10:52 AM [facility] Embedded Images 02/22/2024 10:52 AM [facility] Pathology/Cytology BONE MARROW SPECIMEN / Unknown 02/20/2024 9:22 AM CDT 02/21/2024 12:46 PM CDT Miscellaneous samples (specimen) BONE MARROW SPECIMEN / Unknown 02/20/2024 9:22 AM CDT 02/21/2024 12:46 PM CDT René Chavez MD LAB - PATHOLOGY/CYT OLOGY ORDERABLES Final Result Performing Organization Address City/[facility] de Phone Number [facility] [address] [phone] documented in this encounter Visit Diagnoses Diagnosis Illness, unspecified documented in this encounter Care Teams Mattress And Boxsprings Supervisor Relationship Specialty Start Date End Date Billie Blackwood MD [address] [place] [address] PCP - General 07/20/20 documented as of this encounter
[2024-12-22 08:45] LABS: Blood Urea Nitrogen 22 mg/dL (8-26); Carbon Dioxide 27 mmol/L (22-30); Chloride 99 mmol/L (98-109); Estimated Glomerular Filt Rate 48; Glucose 104 mg/dL (70-105); Ionized Calcium (POC) 1.25 mmol/L (1.11-1.31); Potassium 3.9 mmol/L (3.5-4.9); Sodium 139 mmol/L (138-146)
[2024-12-22 12:39] LABS: Alanine Aminotransferase 19 U/L (6-35); Albumin Level 4.2 g/dL (3.5-5.1); Alkaline Phosphatase 94 U/L (38-126); Anion Gap 9 mmol/L (4-12); Aspartate Amino Transferase 127 U/L (14-36); Bilirubin,Total 0.5 mg/dL (0.2-1.3); Blood Urea Nitrogen 22 mg/dL (7-17); Calcium 9.8 mg/dL (8.4-10.2); Carbon Dioxide 31 mmol/L (22-30); Chloride 100 mmol/L (98-107); Cholesterol 99 mg/dL (0-200); Estimated Glomerular Filt Rate 53; Glucose 103 mg/dL (65-110); HDL Direct 38 mg/dL; Potassium 4.1 mmol/L (3.4-5.0); Sodium 140 mmol/L (137-145); Total Protein 8.0 g/dL (6.3-8.2); Triglycerides 75 mg/dL (<150)
[2024-12-22 12:53] LABS: Hemoglobin A1C 6.0 % (<5.7)
[2024-12-22 13:09] LABS: Thyroid Stimulating Hormone Reflex 2.830 uIU/mL (0.465-4.68)
[2024-12-22 13:29] LABS: Vitamin B12 > 1000.0 pg/mL (239-931)
== END 2024-12-22 08:24 | disposition home or self-care (01) ==
PROVIDERS: PCP Family Medicine; Visit Provider Family Medicine
DX: R73.03 Prediabetes (principal); I10 Essential (primary) hypertension; E78.5 Hyperlipidemia, unspecified; E53.8 Deficiency of other specified B group vitamins; E55.9 Vitamin D deficiency, unspecified
CPT/HCPCS: 36415; 80047; 80053; 80061; 82306; 82607; 83036; 84443

== ENCOUNTER 2025-05-25 09:10 | Outpatient (CLI) | payer MEDICARE, SELFPAY ==
--- NOTE | ~2025-05-25 | CT_ITS ---
EXAMINATION:CT diagnostic chest w con DATE: 05/25/2025 09:41 INDICATION: 79-year-old with history of lung cancer right upper lobe for follow- up evaluation. TECHNIQUE: Computed tomography (CT) of the chest was performed without intravenous contrast. Automated exposure control and iterative reconstruction technique were employed. The dose-length product (DLP) was 135.32 mGy-cm. COMPARISON: CT dated 05/06/2024 FINDINGS: No evidence of supraclavicular lymphadenopathy. No evidence of axillary adenopathy. Moderate centrilobular pattern of emphysema of lungs. Stable postsurgical changes of right upper lobectomy. Stable postsurgical changes of coronary bypass. No evidence of hilar or mediastinal adenopathy. Cardiomegaly with moderate left atrial enlargement is noted. Partially evaluated upper abdomen shows no focal lesions of the liver and adrenal glands. No skeletal lesions of thoracic spine sternum and ribs other than degenerative disc disease. 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 IMPRESSION: 1. 1. Stable postsurgical changes of right upper lobectomy. No evidence of recurrent malignancy in the chest. No lymphadenopathy or effusion. 2. Postoperative changes of coronary bypass. Left atrial enlargement. 3. Severe calcific atherosclerotic changes are upper abdominal aorta including severe calcific disease and probably significant stenosis at the origin of celiac axis, superior mesenteric artery and the renal arteries. Reviewed, dictated and finalized at location T. PATIONAL THERAPY DIRECTOR IMPRESSION: 1. 1. Stable postsurgical changes of right upper lobectomy. No evidence of recurre nt malignancy in the chest. No lymphadenopathy or effusion. 2. Postoperative changes of coronary bypass. Left atrial enlargement. 3. Severe calcific atherosclerotic changes are upper abdominal aorta including severe calcific disease and probably significant stenosis at the origin of anne marie ac axis, superior mesenteric artery and the renal arteries.
[2025-05-25 09:41] LABS: Estimated Glomerular Filt Rate 48
== END 2025-05-25 09:11 | disposition home or self-care (01) ==
PROVIDERS: PCP Family Medicine; Visit Provider Internal Medicine Hematology & Oncology
DX: C34.11 Malignant neoplasm of upper lobe, right bronchus or lung (principal); I70.0 Atherosclerosis of aorta; Z98.890 Other specified postprocedural states
CPT/HCPCS: 71260; Q9967